=== PATIENT | male | born 1940 ===

== ENCOUNTER 2017-08-06 13:14 | Inpatient (IN) | payer MEDICARE, OTHER ==
[2017-08-06 13:25] VITALS: BMI 27.1
--- NOTE | 2017-08-06 13:44 | RAD ---
PROCEDURE: CHEST RADIOGRAPH, 1 VIEW HISTORY: chest pain COMPARISON: 05/05/2016 FINDINGS: LUNGS: Left basilar consolidation. Possible pneumonia. No right-sided consolidation. PLEURA: Possible left pleural effusion. Left costophrenic angle obscured. No right pleural effusion. No pneumothorax. CARDIOVASCULAR: AICD. Normal heart size. OSSEOUS STRUCTURES: No significant abnormalities. VISUALIZED UPPER ABDOMEN: Normal. OTHER FINDINGS: None. IMPRESSION: Left basilar consolidation. Possible left pleural effusion.
--- NOTE | 2017-08-06 14:01 | C.PDOC ---
History Of Present Illness 77 y/o male hx of HTN, CHF, Diabetes, DVT on eliquis and presents to the ED for chest pain,and SOB. The patient has a SOB that has worsened within the last week . The patient is a poor historian. The patient denies fever and abdominal pain has amild non productive cough. info obtain via tranlator tech at bedside Time Seen by Provider: 08/06/17 13:16 Chief Complaint (Nursing): Chest Pain History Per: Patient History/Exam Limitations: no limitations Onset/Duration Of Symptoms: Days Current Symptoms Are (Timing): Still Present Past Medical History Reviewed: Historical Data, Nursing Documentation, Vital Signs Vital Signs: Last Vital Signs Temp 97.5 F L 08/06/17 13:29 Pulse 98 H 08/06/17 14:07 Resp 20 08/06/17 14:07 BP 146/69 08/06/17 14:07 Pulse Ox 95 08/06/17 14:09 - Medical History PMH: Anxiety, Arthritis, Asthma, Depression, Diabetes, HTN, Hypercholesterolemia , Kidney Stones, Peripheral Edema, Chronic Kidney Disease (REANAL INSUFFICIENCY) Surgical History: Endoscopy, Pacemaker - [facility] Procedures COLONOSCOPY (08/09/13) ESOPHAGOGASTRODUODENOSCOPY [EGD] W/CLOSED BIOPSY (10/04/13) PERCUTAN NEEDLE BIOPSY OF PROSTATE (09/24/14) Family History: States: Unknown Family Hx, CAD, Diabetes - Social History Hx Tobacco Use: No Hx Alcohol Use: No Hx Substance Use: No - Immunization History Hx Tetanus Toxoid Vaccination: No Hx Influenza Vaccination: No Hx Pneumococcal Vaccination: No Review Of Systems Except As Marked, All Systems Reviewed And Found Negative. Constitutional: Negative for: Fever, Chills Respiratory: Positive for: Shortness of Breath. Negative for: Cough, SOB with Excertion Gastrointestinal: Negative for: Nausea, Vomiting, Abdominal Pain Physical Exam - Physical Exam Appears: Non-toxic, No Acute Distress Skin: Warm, Dry Head: Atraumatic, Normacephalic Oral Mucosa: Moist Neck: Supple Chest: Symmetrical Respiratory: Rales (bilateral bases ), No Rhonchi, No Wheezing Gastrointestinal/Abdominal: Soft, No Tenderness, No Guarding, No Rebound Extremity: Capillary Refill (<2sec.) Neurological/Psych: Oriented x3, Normal Speech, Normal Cognition Gait: Steady ED Course And Treatment - Laboratory Results Result Diagrams: 08/06/17 14:28 08/06/17 14:28 ECG Rhythm: Sinus Tachycardia (rate 102 ), Nonspecific Changes (T-waves ) O2 Sat by Pulse Oximetry: 95 (RA) Progress Note: The patient received EKG, bloodwork, IV fluids and Chest X-ray. Medical Decision Making Medical Decision Making: ro chf, pna. pt already on eliquis for previous dvt- labs imagign pending 300: cxr shows possible pna. anbitioics dosed. lasix dosed. discussed with dr glass accepts for admission Disposition - Disposition Disposition: HOSPITALIZED Disposition Time: 15:11 Condition: FAIR Forms: [email or web address] ([place]) - Clinical Impression Clinical Impression: CHF (congestive heart failure), Pneumonia - Scribe Statement The provider has reviewed the documentation as recorded by the Scribe Juanita Baker All medical record entries made by the Scribe were at my direction and personally dictated by me. I have reviewed the chart and agree that the record accurately reflects my personal performance of the history, physical exam, medical decision making, and the department course for this patient. I have also personally directed, reviewed, and agree with the discharge instructions and disposition.athieu Decision To Admit - Pt Status Changed To: Hospital Disposition Of: Inpatient - Admit Certification Admit to Inpatient:: After my assessment, the patient will require hospitalization for at least two midnights. This is because of the severity of symptoms shown, intensity of services needed, and/or the medical risk in this patient being treated as an outpatient. - InPatient: Physician Admission Certification: I certify that this patient requires 2 or more midnights of care for the following reason:: pt with chf, multiple comorbidites needs iv lassix, possible pna needs iv antibiotics - . Bed Request Type: Telemetry Admitting Physician: Cullen Glass Patient Diagnosis: CHF (congestive heart failure), Pneumonia
[2017-08-06 14:39] LABS: BASO # 0.1 K/uL (0.0-0.2); BASO % 0.6 % (0.0-2.0); EOS # 0.3 K/uL (0.0-0.7); EOS % 2.5 % (0.0-4.0); HEMATOCRIT 36.3 % (35.0-51.0); LYMPH # 1.5 K/uL (1.0-4.3); LYMPH % 13.5 % (20.0-40.0); MEAN CELL VOLUME 72.3 fL (80.0-94.0); MEAN CORPUSCULAR HEMOGLOBIN 21.9 pg (27.0-31.0); MEAN CORPUSCULAR HGB CONC 30.3 g/dL (33.0-37.0); MEAN PLATELET VOLUME 8.6 fL (7.2-11.7); MONO # 0.6 K/uL (0.0-0.8); MONO % 4.9 % (0.0-10.0); RED CELL DISTRIBUTION WIDTH 20.1 % (11.5-14.5); WHITE BLOOD COUNT 11.3 K/uL (4.8-10.8)
[2017-08-06 14:45] LABS: INR 1.1
[2017-08-06 14:49] LABS: POTASSIUM 4.3 mmol/L (3.6-5.2)
[2017-08-06 14:51] LABS: BILIRUBIN,TOTAL 0.8 mg/dL (0.2-1.3); TOTAL PROTEIN 7.1 g/dL (6.3-8.3)
[2017-08-06] MEDS ORDERED: Azithromycin 500 MG in Sodium Chloride 0.9% 250 ML IVPB STA (14:52)
[2017-08-06 15:01] LABS: TROPONIN I 0.064 ng/mL (0.00-0.120)
[2017-08-06] MEDS ORDERED: cefTRIAXone IV 1 gm in Dextros 50 ML IVPB ONE (15:12)
[2017-08-06] MEDS ORDERED: Azithromycin 500mg/250ML NS 500 MG/250 ML BAG IVPB ONE (16:11)
--- NOTE | 2017-08-06 16:50 | CP.PCM.HP ---
History of Present Illness - History of Present Illness History of Present Illness: Patient seen and evaluated at approximately 17:30PM with the use of the [id number] #[id number]. Patient states that he is a full code status at this time. Patient had to be explained in detail about what Full code status entails. He states that his emergency contacts are his nephew Moshe Lomax and his Amanda Serrano. Patient was unable to provide a telephone number at this time because he does not remember. Paper Deliverer attempted to reach emergency contacts using the phone numbers listed in the medical record, however unable to reach any person. CC: chest pain and shortness of breath HPI: 77 year old male with PMHx significant for CAD with prior stent placement, HTN, HLD, DM 2, CKD, Anemia, permanent pacemaker, prior DVT and chronic lower extremity edema presents with complaints of chest pain and shortness of breath with ambulation. He states that the chest pain felt like a cramp. It was rated a 7/10. It is unclear whether the chest pain radiated to his arm; however so he did state that he also had left hand pain as well as left sided lower back pain. He states that the shortness of breath has been occurring over the past couple of weeks. He states that he feels his symptoms after walking one block. He uses one pillow to sleep at night. He admits to occasional lower extremity swelling however he has not experienced that " for some time now". In short, patient states that he felt sick and thus he came to the hospital. He also admits to cough with productive white sputum of 12 day duration. He denies sick contacts. He admits to subjective warmth but did not actually use a thermometer. He admits to palpitations as well. He admits to constipation of approx 8 days, but states that this is a chronic issue. He denies paresthesias, headaches, nausea or vomiting, dysuria or recent illness at this time. Of note , the history was challenging to obtain due to the language barrier and because patient paused many times while being asked questions. Patient had to be explained several concepts repetitively before an answer was received. This being said, patient may have an underlying dementia. PMHx: As noted above Surgical Hx: abdominal hernia repair, pacemaker placement, prior cardiac stent placement, Prior Cardiac cath by Dr. Cortés FamilyHx: Mom with DM and vaginal CA, Dad with from [place] at 68. Medications: Refer to the MAR however this medication list will need to be verified as patient does not know the medications that he takes. Patient's family member did not know either. They have been asked to bring in a list of the medications or at the very least find out the name of the pharmacy. The pharmacy name that was currently provided does not actually exist. Previously on Eliquis for a prior Hx of DVT per Medical Records Custodian Dr. Cortés. Social Hx: denies tobacco use; only drank alcohol sparingly when he was very young; denies illicit drug use. Allergies: no known drug allergies PMD: Dr Pickard Present on Admission - Present on Admission Any Indicators Present on Admission: No History of DVT/PE: Yes Review of Systems - Review of Systems Systems not reviewed;Unavailable: Dementia, Language Barrier - Cardiovascular Cardiovascular: Chest Pain - Respiratory Respiratory: Cough. absent: Wheezing, Excessive Mucous Production - Gastrointestinal Gastrointestinal: absent: Nausea, Vomiting - Genitourinary Genitourinary: absent: Dysuria - Integumentary Integumentary: Dry Skin, Swelling - Neurological Neurological: absent: Abnormal Gait, Abnormal Hearing - Psychiatric Psychiatric: absent: Anxiety, Other - Endocrine Endocrine: Palpitations - Hematologic/Lymphatic Hematologic: absent: Easy Bleeding, Easy Bruising Past Patient History - Infectious Disease Hx of Infectious Diseases: None - Past Medical History & Family History Past Medical History?: Yes - Past Social History Smoking Status: Never Smoked Alcohol: None Drugs: Denies Home Situation {Lives}: With Family - CARDIAC Hx Hypercholesterolemia: Yes Hx Hypertension: Yes Hx Pacemaker: Yes Hx Peripheral Edema: Yes - PULMONARY Hx Asthma: Yes - RENAL Hx Chronic Kidney Disease: Yes (REANAL INSUFFICIENCY) Hx Kidney Stones: Yes - ENDOCRINE/METABOLIC Hx Endocrine Disorders: Yes Hx Diabetes Mellitus Type 2: Yes - MUSCULOSKELETAL/RHEUMATOLOGICAL Hx Arthritis: Yes - GENITOURINARY/GYNECOLOGICAL Hx Genitourinary Disorders: Yes Hx Prostate Problems: Yes (ELEVATED PSA) - PSYCHIATRIC Hx Anxiety: Yes Hx Depression: Yes Hx Substance Use: No - SURGICAL HISTORY Hx Surgeries: Yes Other/Comment: pacemaker on - ANESTHESIA Hx Anesthesia: Yes Hx Anesthesia Reactions: No Hx Malignant Hyperthermia: No Meds Allergies/Adverse Reactions: Allergies Allergy/AdvReac Type Severity Reaction Status Date / Time No Known Allergies Allergy Verified 08/06/17 13:20 Physical Exam - Constitutional Appears: Non-toxic, No Acute Distress - Head Exam Head Exam: ATRAUMATIC, NORMAL INSPECTION, NORMOCEPHALIC - Eye Exam Eye Exam: EOMI, Normal appearance, PERRL Pupil Exam: NORMAL ACCOMODATION Additional comments: skin tags appreciated under right eyelid - ENT Exam ENT Exam: Mucous Membranes Moist, Normal Exam - Neck Exam Neck exam: Positive for: Full Rom - Respiratory Exam Respiratory Exam: Rales (Left lower lung lobe), NORMAL BREATHING PATTERN. absent: Wheezes - Cardiovascular Exam Cardiovascular Exam: +S1, +S2 - GI/Abdominal Exam GI & Abdominal Exam: Normal Bowel Sounds, Soft. absent: Rigid, Tenderness Additional comments: central obesity- consequently spleen and liver not palpable - Extremities Exam Extremities exam: Positive for: full ROM, pedal edema (trace bilateral), pedal pulses present. Negative for: joint swelling, tenderness - Back Exam Back exam: FULL ROM - Neurological Exam Neurological exam: Alert, Oriented x3 - Psychiatric Exam Psychiatric exam: Normal Affect, Normal Mood - Skin Skin Exam: Intact, Normal Color, Warm Results - Vital Signs Recent Vital Signs: Last Vital Signs Temp 98 F 08/06/17 16:46 Pulse 106 H 08/06/17 16:46 Resp 22 08/06/17 16:46 BP 160/78 H 08/06/17 16:46 Pulse Ox 98 08/06/17 16:46 - Labs Result Diagrams: 08/06/17 14:28 08/06/17 14:28 Assessment & Plan (1) Chest pain Assessment and Plan: First troponin WNL, though higher end of normal Initial EKG- Sinus tachycardia notes with possible left atrial enlargement; no apparent T segment elevations in contiguous leads F/U ANGEL 2 and 3 F/U EKGs and echo and Medical Records Custodian Dr. Cortés recommendations. F/U Thyroid studies On Metoprolol 25 mg Po daily, Procardia 90 mg po daily, Cozaar 100 mg po daily Status: Acute (2) CHF exacerbation Assessment and Plan: Monitor on telemetry Lasix 20 mg IV Q12 Height of bed at 45 degrees, Strict ins and outs, monitor daily weights F/U Echo Patient to continue blood pressure control as noted above F/U recommendations from Medical Records Custodian, Dr. Cortés Status: Chronic (3) Pneumonia Assessment and Plan: Afebrile, mild leukocytosis on Admission. Hx of productive cough for almost 2 weeks. CXR findings of left basilar consolidation and left pleural effusion Rocephin and Azithromycin given in the ED Will begin Rocephin and Azithromycin Q24 Start Florastor as well F/U Rapid strep, Influenza A and B studies, Urine Legionella, Mycoplasma studies F/U consult to Dr. Mena (Pulm) Status: Acute (4) CAD (coronary artery disease) Assessment and Plan: Hx of cardiac stent in the past F/U Cardio recommendations. Patient will likely benefit from cath Currently on Heparin Drip Status: Acute (5) HTN (hypertension) Assessment and Plan: On Metoprolol, Procardia and Cozaar. (Hold parameters in place) Cont to monitor Status: Chronic (6) CKD (chronic kidney disease) Assessment and Plan: Hx of CKD GFR 45 which appears to be aroudn baseline F/U Dr. Miranda recommendations Status: Acute (7) Diabetes mellitus Assessment and Plan: Accuchecks ISS- High Dose F/U A1c Hold home medications at this time Status: Chronic (8) HLD (hyperlipidemia) Assessment and Plan: F/U lipid panel On Crestor 10 mg Po HS Dietary counseling enforced Status: Chronic (9) Constipation Assessment and Plan: Colace 100 mg PO TID until 18:00PM on 08/07/17. If patient has not had a stool, will add on Dulcolax. Status: Chronic (10) Anemia Assessment and Plan: Likely iron deficiency anemia based on prior admissions Iron Studies. F/U Ferritin, Iron, TIBC, % Saturation Monitor Hgb/Hct Status: Chronic (11) History of DVT (deep vein thrombosis) Assessment and Plan: Patient was previously on Eliquis for a prior history of DVT. At this time, will not initiate. Will rather start heparin drip in anticipation for cath procedure. Status: Acute (12) Prophylactic measure Assessment and Plan: Protonix 40 mg PO daily On Heparin Drip in anticipation for cardiac cath- Will f/u with Dr. Cortés as to when Status: Acute
[2017-08-06] MEDS ORDERED: Heparin25000 units/250ml 1/2NS 25,000 UNITS/250 ML BAG IV PRN (19:43)
[2017-08-06 21:05] LABS: IRON 22 ug/dL (49-181)
[2017-08-06] MEDS: (Novolog) Insulin Aspart, Recombinant 100 u/ml 10 ml vial SC SCH (22:16)
[2017-08-07 07:26] LABS: BASO # 0.1 K/uL (0.0-0.2); BASO % 0.6 % (0.0-2.0); EOS # 0.5 K/uL (0.0-0.7); EOS % 4.4 % (0.0-4.0); HEMATOCRIT 33.9 % (35.0-51.0); LYMPH # 2.6 K/uL (1.0-4.3); LYMPH % 22.3 % (20.0-40.0); MEAN CELL VOLUME 71.6 fL (80.0-94.0); MEAN CORPUSCULAR HEMOGLOBIN 22.4 pg (27.0-31.0); MEAN CORPUSCULAR HGB CONC 31.2 g/dL (33.0-37.0); MEAN PLATELET VOLUME 8.9 fL (7.2-11.7); MONO # 0.6 K/uL (0.0-0.8); MONO % 5.3 % (0.0-10.0); RED CELL DISTRIBUTION WIDTH 19.8 % (11.5-14.5); WHITE BLOOD COUNT 11.5 K/uL (4.8-10.8)
[2017-08-07 08:04] LABS: ALB/GLOB RATIO 0.9 (1.0-2.1); BILIRUBIN,TOTAL 0.6 mg/dL (0.2-1.3); CALCIUM 9.4 mg/dl (8.6-10.4); MAGNESIUM 1.8 mg/dL (1.6-2.3); PHOSPHOROUS 3.8 mg/dL (2.5-4.5); TOTAL PROTEIN 6.6 g/dL (6.3-8.3)
[2017-08-07 08:15] LABS: THYROID STIMULATING HORMONE 1.16 mIU/L (0.46-4.68)
[2017-08-07] MEDS: Heparin25000 units/250ml 1/2NS 25,000 UNITS/250 ML BAG IV PRN ×2 (08:42→18:46)
[2017-08-07] MEDS: (Novolog) Insulin Aspart, Recombinant 100 u/ml 10 ml vial SC SCH ×4 (08:50→21:28)
[2017-08-07] MEDS: Pantoprazole 40 mg EC Tab PO SCH (09:06)
[2017-08-07] MEDS: cefTRIAXone IV 1 gm in Dextros 50 ML IVPB SCH (09:07)
[2017-08-07] MEDS: Saccharomyces Boulardi 250 mg Cap PO SCH ×2 (09:08→17:18)
[2017-08-07] MEDS: Azithromycin 500 MG in Sodium Chloride 0.9% 250 ML IVPB SCH (09:08)
[2017-08-07] MEDS: NIFEdipine 90 mg ER Tab PO SCH (09:17)
[2017-08-07] MEDS ORDERED: NIFEdipine 90 mg ER Tab PO SCH (10:00)
[2017-08-07] MEDS ORDERED: Metoprolol Succinate 25 mg XL Tab PO SCH ×2 (10:00)
--- NOTE | 2017-08-07 10:06 | CP.PCM.PN ---
<Sina White - Last Filed: 08/07/17 12:36> Subjective - Date & Time of Evaluation Date of Evaluation: 08/07/17 Time of Evaluation: 10:05 - Subjective Subjective: PGY1 Note for Dr. Barth HPI: Patient seen and examined at bedside. Slow to respond to questions. States he is still having chest pain and SOB. Denies any belly pain, F,N/V/D. No other complaints at this time. Patient was coughing as I interviewed him. Objective - Vital Signs/Intake and Output Vital Signs (last 24 hours): Temp Pulse Resp BP Pulse Ox 97.5 F L 91 H 18 153/76 H 94 L 08/07/17 07:15 08/07/17 07:15 08/07/17 07:15 08/07/17 09:06 08/07/17 07:15 Intake and Output: 08/07/17 08/07/17 06:59 18:59 Intake Total 250 Output Total 600 Balance -350 - Medications Medications: Current Medications Aspirin (Ecotrin) 81 mg PO DAILY [facility] Last Admin: 08/07/17 09:06 Dose: 81 mg Docusate Sodium (Colace) 100 mg PO TID [facility] Last Admin: 08/07/17 09:07 Dose: 100 mg Furosemide (Lasix) 20 mg IVP Q12 [facility] Last Admin: 08/07/17 09:06 Dose: 20 mg Ceftriaxone Sodium (Rocephin Iv 1 Gm Duplex) 50 mls @ 100 mls/hr IVPB DAILY [facility] Last Admin: 08/07/17 09:07 Dose: 100 mls/hr Azithromycin 500 mg/ Sodium (Chloride) 250 mls @ 167 mls/hr IVPB Q24H [facility] Last Admin: 08/07/17 09:08 Dose: 167 mls/hr Heparin Sodium/Sodium Chloride (Heparin 24639 Units/250ml 1/2 Normal Saline) 25 ,000 units in 250 mls @ 12.383 mls/hr IV .[id number] PRN; Protocol; 14 UNITS/KG/HR PRN Reason: ADJUST RATE PER PROTOCOL Last Admin: 08/07/17 08:42 Dose: 14 units/kg/hr, 12.383 mls/hr Insulin Aspart (Novolog) 0 unit SC ACHS [facility] PRN Reason: Protocol Last Admin: 09/10/17 08:50 Dose: 4 unit Ipratropium Phoenix (Atrovent) 0.5 mg IH RQ6 PRN PRN Reason: Shortness of Breath Losartan Potassium (Cozaar) 100 mg PO DAILY [facility] Last Admin: 08/07/17 09:06 Dose: 100 mg Metoprolol Succinate (Toprol Xl) 25 mg PO DAILY [facility] Last Admin: 08/07/17 09:06 Dose: 25 mg Nifedipine (Procardia Xl) 90 mg PO DAILY [facility] Last Admin: 08/07/17 09:17 Dose: 90 mg Pantoprazole Sodium (Protonix Ec Tab) 40 mg PO DAILY [facility] Last Admin: 08/07/17 09:06 Dose: 40 mg Pneumococcal Polyvalent Vaccine (Pneumovax 23 Vaccine) 0.5 ml IM .ONCE ONE Stop: 08/09/17 10:01 Rosuvastatin Calcium (Crestor) 10 mg PO [facility] Last Admin: 08/06/17 22:01 Dose: 10 mg Saccharomyces Boulardii (Florastor) 250 mg PO BID [facility] Last Admin: 08/07/17 09:08 Dose: 250 mg - Labs Labs: 08/07/17 07:16 08/07/17 07:16 PT 12.5 SECONDS (9.7-12.2) H 08/06/17 14:28 INR 1.1 08/06/17 14:28 APTT 34 SECONDS (21-34) 08/07/17 07:45 - Constitutional Appears: Well, Non-toxic, No Acute Distress - Head Exam Head Exam: ATRAUMATIC, NORMAL INSPECTION, NORMOCEPHALIC - Eye Exam Eye Exam: EOMI Pupil Exam: NORMAL ACCOMODATION - ENT Exam ENT Exam: Mucous Membranes Moist - Respiratory Exam Respiratory Exam: Rales - Cardiovascular Exam Cardiovascular Exam: REGULAR RHYTHM. absent: Bradycardia, Tachycardia - GI/Abdominal Exam GI & Abdominal Exam: Soft, Normal Bowel Sounds. absent: Distended, Tenderness - Extremities Exam Extremities Exam: absent: Joint Swelling, Tenderness - Neurological Exam Neurological Exam: Alert, Awake, Oriented x3 - Psychiatric Exam Psychiatric exam: Normal Affect, Normal Mood - Skin Skin Exam: Dry, Intact, Normal Color, Warm Assessment and Plan - Assessment and Plan (Free Text) Assessment: (1) Chest pain Assessment and Plan: All trops WNL EKG x2 = Sinus tachycardia notes with possible left atrial enlargement; no apparent T segment elevations in contiguous leads Cards (Moo) reccs * Plan on possible stress test TSH: 1.16 T4: 1.53 On Metoprolol 25 mg Po daily, Procardia 90 mg po daily, Cozaar 100 mg po daily Depending on Dr. Cortés reccarlton, may increase Metoprolol or add coreg Status: Acute (2) CHF exacerbation Assessment and Plan: Monitor on telemetry Lasix 20 mg IV QD, decreased due to rising Cr Height of bed at 45 degrees, Strict ins and outs, monitor daily weights F/U Echo Patient to continue blood pressure control as noted above F/U recommendations from [employer], Dr. Cortés Status: Chronic (3) Pneumonia Assessment and Plan: Will begin Rocephin and Azithromycin Q24 Start Florastor as well Rapid strep, Influenza A and B studies, Urine Legionella, Mycoplasma studies = Negative Dr. Mena (Pulm) * Continue IV abx, Culture/sensitivity, CXR, Venous Doppler Status: Acute (4) CAD (coronary artery disease) Assessment and Plan: Hx of cardiac stent in the past F/U Cardio recommendations. Patient will likely benefit from cath Currently on Heparin Drip Status: Acute (5) HTN (hypertension) Assessment and Plan: On Metoprolol, Procardia and Cozaar. (Hold parameters in place) Cont to monitor Status: Chronic (6) CKD (chronic kidney disease) Assessment and Plan: Hx of CKD GFR 45 which appears to be around baseline F/U Dr. Miranda recommendations Status: Acute (7) Diabetes mellitus Assessment and Plan: Accuchecks ISS- High Dose F/U A1c Hold home medications at this time Status: Chronic (8) HLD (hyperlipidemia) Assessment and Plan: F/U lipid panel On Crestor 10 mg Po HS Dietary counseling enforced Status: Chronic (9) Constipation Assessment and Plan: Colace 100 mg PO TID until 18:00PM on 08/07/17. If patient has not had a stool, will add on Dulcolax. Status: Chronic (10) Anemia Assessment and Plan: Likely iron deficiency anemia based on prior admissions Iron Studies. Ferritin 27.4, Iron 22, TIBC 322, % Saturation 7 Monitor Hgb/Hct Status: Chronic (11) History of DVT (deep vein thrombosis) Assessment and Plan: Patient was previously on Eliquis for a prior history of DVT. At this time, will not initiate. Will rather start heparin drip in anticipation for cath procedure. Status: Acute (12) Prophylactic measure Assessment and Plan: Protonix 40 mg PO daily On Heparin Drip in anticipation for cardiac cath- Will f/u with Dr. Cortés as to when Status: Acute <Cullen Barth - Last Filed: 08/07/17 17:17> Objective - Vital Signs/Intake and Output Vital Signs (last 24 hours): Temp Pulse Resp BP Pulse Ox 97.5 F L 91 H 18 153/76 H 94 L 08/07/17 07:15 08/07/17 08:05 08/07/17 07:15 08/07/17 09:06 08/07/17 07:15 Intake and Output: 08/07/17 08/07/17 06:59 18:59 Intake Total 250 Output Total 600 Balance -350 - Medications Medications: Current Medications Acetylcysteine (Acetylcysteine 20%) 3 ml PO Q12H [facility] Last Admin: 08/07/17 16:03 Dose: 3 ml Aspirin (Ecotrin) 81 mg PO DAILY [facility] Last Admin: 08/07/17 09:06 Dose: 81 mg Docusate Sodium (Colace) 100 mg PO TID [facility] Last Admin: 08/07/17 13:47 Dose: 100 mg Ferrous Sulfate (Feosol) 325 mg PO BID [facility] Furosemide (Lasix) 20 mg IVP DAILY [facility] Ceftriaxone Sodium (Rocephin Iv 1 Gm Duplex) 50 mls @ 100 mls/hr IVPB DAILY [facility] Last Admin: 08/07/17 09:07 Dose: 100 mls/hr Azithromycin 500 mg/ Sodium (Chloride) 250 mls @ 167 mls/hr IVPB Q24H [facility] Last Admin: 08/07/17 09:08 Dose: 167 mls/hr Heparin Sodium/Sodium Chloride (Heparin 60082 Units/250ml 1/2 Normal Saline) 25 ,000 units in 250 mls @ 12.383 mls/hr IV .[id number] PRN; Protocol; 14 UNITS/KG/HR PRN Reason: ADJUST RATE PER PROTOCOL Last Admin: 08/07/17 08:42 Dose: 14 units/kg/hr, 12.383 mls/hr Insulin Aspart (Novolog) 0 unit SC ACHS [facility] PRN Reason: Protocol Last Admin: 08/07/17 12:50 Dose: 4 unit Ipratropium Phoenix (Atrovent) 0.5 mg RQ6 PRN PRN Reason: Shortness of Breath Last Admin: 08/07/17 14:14 Dose: 0.5 mg Losartan Potassium (Cozaar) 100 mg PO DAILY [facility] Last Admin: 08/07/17 09:06 Dose: 100 mg Metoprolol Succinate (Toprol Xl) 50 mg PO DAILY [facility] Nifedipine (Procardia Xl) 90 mg PO DAILY [facility] Last Admin: 08/07/17 09:17 Dose: 90 mg Pantoprazole Sodium (Protonix Ec Tab) 40 mg PO DAILY [facility] Last Admin: 08/07/17 09:06 Dose: 40 mg Pneumococcal Polyvalent Vaccine (Pneumovax 23 Vaccine) 0.5 ml IM .ONCE ONE Stop: 08/09/17 10:01 Rosuvastatin Calcium (Crestor) 10 mg PO HS [facility] Last Admin: 08/06/17 22:01 Dose: 10 mg Saccharomyces Boulardii (Florastor) 250 mg PO BID [facility] Last Admin: 08/07/17 09:08 Dose: 250 mg - Labs Labs: 08/07/17 07:16 08/07/17 07:16 PT 12.5 SECONDS (9.7-12.2) H 08/06/17 14:28 INR 1.1 08/06/17 14:28 APTT 61 SECONDS (21-34) H D 08/07/17 14:56 Attending/Attestation - Attestation I have personally seen and examined this patient.: Yes I have fully participated in the care of the patient.: Yes I have reviewed all pertinent clinical information, including history, physical exam and plan: Yes Notes (Text): 08/07/17 17:12 Patient was seen and examined shortly after resident. Exam, Assessment and Plan were thoroughly gone over with the resident. Please note that on Exam: Rales were heard on the Left Lower Lobe Please note that considering the elevated blood pressure with heart rate in the 90s, Metoprolol Succinate was increased to 50 mg PO 1x/day His Lasix was also reduced to 20 mg IV 1x/day starting today 08/07/17 considering the increase in Cr. I spoke with [employer] Dr. Cortés who stated that patient will be taken for Cardiac Cath on Tuesday08/09/17. I have added Acetylsyteine 6 ml PO Q12H starting today 08/07/17 and this will need to be continued through 08/09/17 to help with contrast associated nephrotoxicity in anticipation of planned Cardiac Cath on 08/09/17. Cullen Barth D.O.
--- NOTE | 2017-08-07 11:09 | CP.PCM.CON ---
History of Present Illness - History of Present Illness History of Present Illness: reason for consultation: left lung infiltrate 77-year-old male with history of coronary artery disease status post stent placement, diabetes, hypertension, hyperlipidemia, chronic kidney disease, prior history of DVT presented to emergency room complaining of shortness of breath and chest pain. Chest x-ray done in the emergency room showed retrocardiac infiltrate. Surgical Hx: abdominal hernia repair, pacemaker placement, prior cardiac stent placement, Prior Cardiac cath by Dr. Cortés FamilyHx: Mom with DM and vaginal CA, Dad with from [place] at 68. Medications: Refer to the MAR however this medication list will need to be verified as patient does not know the medications that he takes. Patient's family member did not know either. They have been asked to bring in a list of the medications or at the very least find out the name of the pharmacy. The pharmacy name that was currently provided does not actually exist. Previously on Eliquis for a prior Hx of DVT per [facility] Supervisor Dr. Cortés. Social Hx: denies tobacco use; only drank alcohol sparingly when he was very young; denies illicit drug use. Allergies: no known drug allergies Review of Systems - Review of Systems All systems: reviewed and no additional remarkable complaints except (shortness of breath and cough/chest pain) Past Patient History - Infectious Disease Hx of Infectious Diseases: None - Past Medical History & Family History Past Medical History?: Yes - Past Social History Smoking Status: Never Smoked Alcohol: None Drugs: Denies Home Situation {Lives}: With Family - CARDIAC Hx Hypercholesterolemia: Yes Hx Hypertension: Yes Hx Pacemaker: Yes Hx Peripheral Edema: Yes - PULMONARY Hx Asthma: Yes - RENAL Hx Chronic Kidney Disease: Yes (REANAL INSUFFICIENCY) Hx Kidney Stones: Yes - ENDOCRINE/METABOLIC Hx Endocrine Disorders: Yes Hx Diabetes Mellitus Type 2: Yes - MUSCULOSKELETAL/RHEUMATOLOGICAL Hx Arthritis: Yes - GENITOURINARY/GYNECOLOGICAL Hx Genitourinary Disorders: Yes Hx Prostate Problems: Yes (ELEVATED PSA) - PSYCHIATRIC Hx Anxiety: Yes Hx Depression: Yes Hx Substance Use: No - SURGICAL HISTORY Hx Surgeries: Yes Other/Comment: pacemaker on - ANESTHESIA Hx Anesthesia: Yes Hx Anesthesia Reactions: No Hx Malignant Hyperthermia: No Meds Allergies/Adverse Reactions: Allergies Allergy/AdvReac Type Severity Reaction Status Date / Time No Known Allergies Allergy Verified 08/06/17 13:20 - Medications Medications: Current Medications Aspirin (Ecotrin) 81 mg PO DAILY [facility] Last Admin: 08/07/17 09:06 Dose: 81 mg Docusate Sodium (Colace) 100 mg PO TID [facility] Last Admin: 08/07/17 09:07 Dose: 100 mg Furosemide (Lasix) 20 mg IVP DAILY [facility] Ceftriaxone Sodium (Rocephin Iv 1 Gm Duplex) 50 mls @ 100 mls/hr IVPB DAILY [facility] Last Admin: 08/07/17 09:07 Dose: 100 mls/hr Azithromycin 500 mg/ Sodium (Chloride) 250 mls @ 167 mls/hr IVPB Q24H [facility] Last Admin: 08/07/17 09:08 Dose: 167 mls/hr Heparin Sodium/Sodium Chloride (Heparin 50149 Units/250ml 1/2 Normal Saline) 25 ,000 units in 250 mls @ 12.383 mls/hr IV .[id number] PRN; Protocol; 14 UNITS/KG/HR PRN Reason: ADJUST RATE PER PROTOCOL Last Admin: 08/07/17 08:42 Dose: 14 units/kg/hr, 12.383 mls/hr Insulin Aspart (Novolog) 0 unit SC ACHS [facility] PRN Reason: Protocol Last Admin: 08/07/17 08:50 Dose: 4 unit Ipratropium [place] (Atrovent) 0.5 mg IH RQ6 PRN PRN Reason: Shortness of Breath Losartan Potassium (Cozaar) 100 mg PO DAILY [facility] Last Admin: 08/07/17 09:06 Dose: 100 mg Metoprolol Succinate (Toprol Xl) 25 mg PO DAILY [facility] Last Admin: 08/07/17 09:06 Dose: 25 mg Nifedipine (Procardia Xl) 90 mg PO DAILY [facility] Last Admin: 08/07/17 09:17 Dose: 90 mg Pantoprazole Sodium (Protonix Ec Tab) 40 mg PO DAILY [facility] Last Admin: 08/07/17 09:06 Dose: 40 mg Pneumococcal Polyvalent Vaccine (Pneumovax 23 Vaccine) 0.5 ml IM .ONCE ONE Stop: 08/09/17 10:01 Rosuvastatin Calcium (Crestor) 10 mg PO HS [facility] Last Admin: 08/06/17 22:01 Dose: 10 mg Saccharomyces Boulardii (Florastor) 250 mg PO BID [facility] Last Admin: 08/07/17 09:08 Dose: 250 mg Physical Exam - Constitutional Appears: No Acute Distress - Head Exam Head Exam: ATRAUMATIC, NORMOCEPHALIC - Eye Exam Eye Exam: Normal appearance - ENT Exam ENT Exam: Mucous Membranes Moist - Respiratory Exam Respiratory Exam: Rales - Cardiovascular Exam Cardiovascular Exam: REGULAR RHYTHM - GI/Abdominal Exam GI & Abdominal Exam: Normal Bowel Sounds, Soft - Extremities Exam Extremities exam: Positive for: normal inspection - Neurological Exam Neurological exam: Alert, Oriented x3 Results - Vital Signs Recent Vital Signs: Last Vital Signs Temp 97.5 F L 08/07/17 07:15 Pulse 91 H 08/07/17 07:15 Resp 18 08/07/17 07:15 BP 153/76 H 08/07/17 09:06 Pulse Ox 94 L 08/07/17 07:15 - Labs Result Diagrams: 08/07/17 07:16 08/07/17 07:16 Labs: Laboratory Results - last 24 hr 08/06/17 08/06/17 08/06/17 20:46 20:46 20:46 WBC RBC Hgb Hct MCV MCH MCHC RDW Plt Count MPV Neut % (Auto) Lymph % (Auto) [place] % (Auto) Eos % (Auto) Baso % (Auto) Neut # Lymph # [place] # Eos # Baso # APTT Sodium Potassium Chloride Carbon Dioxide Anion Gap BUN Creatinine Est GFR ( Amer) Est GFR (Non-Af Amer) POC Glucose (mg/dL) Random Glucose Calcium Phosphorus Magnesium Iron 22 L TIBC 322 % Saturation 7 L Ferritin 27.4 Total Bilirubin AST ALT Alkaline Phosphatase Total Creatine Kinase 29 L CK-MB (Mass) 0.90 Troponin I, Quant 0.0730 Total Protein Albumin Globulin Albumin/Globulin Ratio Free T4 TSH 3rd Generation Influenza Typ A,B (EIA) Ur L.pneumophila Ag Mycoplasma pneumon IgM Grp A Beta Strep Ag 08/06/17 08/06/17 08/06/17 20:53 20:53 21:16 WBC RBC Hgb Hct MCV MCH MCHC RDW Plt Count MPV Neut % (Auto) Lymph % (Auto) [place] % (Auto) Eos % (Auto) Baso % (Auto) Neut # Lymph # [place] # Eos # Baso # APTT Sodium Potassium Chloride Carbon Dioxide Anion Gap BUN Creatinine Est GFR ( Amer) Est GFR (Non-Af Amer) POC Glucose (mg/dL) 274 H Random Glucose Calcium Phosphorus Magnesium Iron TIBC % Saturation Ferritin Total Bilirubin AST ALT Alkaline Phosphatase Total Creatine Kinase CK-MB (Mass) Troponin I, Quant Total Protein Albumin Globulin Albumin/Globulin Ratio Free T4 TSH 3rd Generation Influenza Typ A,B (EIA) Negative for flu a/b Ur L.pneumophila Ag Cancelled Mycoplasma pneumon IgM Negative Grp A Beta Strep Ag Negative 08/07/17 08/07/17 08/07/17 04:00 04:00 07:12 WBC RBC Hgb Hct MCV MCH MCHC RDW Plt Count MPV Neut % (Auto) Lymph % (Auto) [place] % (Auto) Eos % (Auto) Baso % (Auto) Neut # Lymph # [place] # Eos # Baso # APTT 37 H D Sodium Potassium Chloride Carbon Dioxide Anion Gap BUN Creatinine Est GFR ( Amer) Est GFR (Non-Af Amer) POC Glucose (mg/dL) 239 H Random Glucose Calcium Phosphorus Magnesium Iron TIBC % Saturation Ferritin Total Bilirubin AST ALT Alkaline Phosphatase Total Creatine Kinase 26 L CK-MB (Mass) 0.75 Troponin I, Quant 0.0700 Total Protein Albumin Globulin Albumin/Globulin Ratio Free T4 TSH 3rd Generation Influenza Typ A,B (EIA) Ur L.pneumophila Ag Mycoplasma pneumon IgM Grp A Beta Strep Ag 08/07/17 08/07/17 08/07/17 07:16 07:16 07:16 WBC 11.5 H RBC 4.73 Hgb 10.6 L Hct 33.9 L MCV 71.6 L MCH 22.4 L MCHC 31.2 L RDW 19.8 H Plt Count 379 MPV 8.9 Neut % (Auto) 67.4 Lymph % (Auto) 22.3 [place] % (Auto) 5.3 Eos % (Auto) 4.4 H Baso % (Auto) 0.6 Neut # 7.8 H Lymph # 2.6 [place] # 0.6 Eos # 0.5 Baso # 0.1 APTT Sodium 144 Potassium 4.0 Chloride 104 Carbon Dioxide 26 Anion Gap 18 BUN 26 H Creatinine 1.6 H Est GFR ( Amer) 51 Est GFR (Non-Af Amer) 42 POC Glucose (mg/dL) Random Glucose 249 H Calcium 9.4 Phosphorus 3.8 Magnesium 1.8 Iron TIBC % Saturation Ferritin Total Bilirubin 0.6 AST 22 ALT 29 Alkaline Phosphatase 116 Total Creatine Kinase CK-MB (Mass) Troponin I, Quant Total Protein 6.6 Albumin 3.2 L Globulin 3.4 Albumin/Globulin Ratio 0.9 L Free T4 1.53 TSH 3rd Generation 1.16 Influenza Typ A,B (EIA) Ur L.pneumophila Ag Mycoplasma pneumon IgM Grp A Beta Strep Ag 08/07/17 07:45 WBC RBC Hgb Hct MCV MCH MCHC RDW Plt Count MPV Neut % (Auto) Lymph % (Auto) [place] % (Auto) Eos % (Auto) Baso % (Auto) Neut # Lymph # [place] # Eos # Baso # APTT 34 Sodium Potassium Chloride Carbon Dioxide Anion Gap BUN Creatinine Est GFR ( Amer) Est GFR (Non-Af Amer) POC Glucose (mg/dL) Random Glucose Calcium Phosphorus Magnesium Iron TIBC % Saturation Ferritin Total Bilirubin AST ALT Alkaline Phosphatase Total Creatine Kinase CK-MB (Mass) Troponin I, Quant Total Protein Albumin Globulin Albumin/Globulin Ratio Free T4 TSH 3rd Generation Influenza Typ A,B (EIA) Ur L.pneumophila Ag Mycoplasma pneumon IgM Grp A Beta Strep Ag Assessment & Plan (1) Pneumonia Status: Acute Comment: continue IV antibiotics and followup culture and sensitivity. Followup chest x-ray. Venous Doppler of lower extremity (2) History of DVT (deep vein thrombosis) Status: Acute (3) CKD (chronic kidney disease) Status: Acute
[2017-08-07] MEDS: Ipratropium 0.02% Inhal Soln (0.5 mg/2.5 ml) UD IH PRN ×2 (14:14→19:54)
[2017-08-07] MEDS: Acetylcysteine 20% Inhal Soln (4ml) PO SCH (16:03)
--- NOTE | 2017-08-07 16:28 | CP.PCM.CON ---
History of Present Illness - History of Present Illness History of Present Illness: 77-year-old male with history of coronary artery disease status post stent placement, diabetes, hypertension, hyperlipidemia, chronic kidney disease, prior history of DVT presented to emergency room complaining of shortness of breath and chest pain. Chest x-ray done in the emergency room showed retrocardiac infiltrate. Pt being ruled out for MS. Also, receiving AB. Presently on heparin. For possible cath. No urinary complaints. On Cozaar. No family history of renal disease. Review of Systems - Constitutional Constitutional: absent: Fatigue, Fever - EENT Eyes: absent: Blurred Vision Nose/Mouth/Throat: absent: Nasal Congestion, Nasal Obstruction - Cardiovascular Cardiovascular: Chest Pain. absent: Edema - Genitourinary Genitourinary: absent: Change in Urinary Stream, Difficulty Urinating - Musculoskeletal Musculoskeletal: absent: Arthralgias, Back Pain - Integumentary Integumentary: absent: Dry Skin, Rash - Neurological Neurological: absent: Abnormal Gait, Behavioral Changes Past Patient History - Infectious Disease Hx of Infectious Diseases: None - Past Medical History & Family History Past Medical History?: Yes - Past Social History Smoking Status: Never Smoked Alcohol: None Drugs: Denies Home Situation {Lives}: With Family - CARDIAC Hx Hypercholesterolemia: Yes Hx Hypertension: Yes Hx Pacemaker: Yes Hx Peripheral Edema: Yes - PULMONARY Hx Asthma: Yes - RENAL Hx Chronic Kidney Disease: Yes (REANAL INSUFFICIENCY) Hx Kidney Stones: Yes - ENDOCRINE/METABOLIC Hx Endocrine Disorders: Yes Hx Diabetes Mellitus Type 2: Yes - MUSCULOSKELETAL/RHEUMATOLOGICAL Hx Arthritis: Yes - GENITOURINARY/GYNECOLOGICAL Hx Genitourinary Disorders: Yes Hx Prostate Problems: Yes (ELEVATED PSA) - PSYCHIATRIC Hx Anxiety: Yes Hx Depression: Yes Hx Substance Use: No - SURGICAL HISTORY Hx Surgeries: Yes Other/Comment: pacemaker on - ANESTHESIA Hx Anesthesia: Yes Hx Anesthesia Reactions: No Hx Malignant Hyperthermia: No Meds Allergies/Adverse Reactions: Allergies Allergy/AdvReac Type Severity Reaction Status Date / Time No Known Allergies Allergy Verified 08/06/17 13:20 - Medications Medications: Current Medications Acetylcysteine (Acetylcysteine 20%) 3 ml PO Q12H [facility] Last Admin: 08/07/17 16:03 Dose: 3 ml Aspirin (Ecotrin) 81 mg PO DAILY [facility] [place] Last Admin: 08/07/17 09:06 Dose: 81 mg Docusate Sodium (Colace) 100 mg PO TID [facility] [place] Last Admin: 08/07/17 13:47 Dose: 100 mg Ferrous Sulfate (Feosol) 325 mg PO BID [facility] [place] Furosemide (Lasix) 20 mg IVP DAILY [facility] [place] Ceftriaxone Sodium (Rocephin Iv 1 Gm Duplex) 50 mls @ 100 mls/hr IVPB DAILY [facility] [place] Last Admin: 08/07/17 09:07 Dose: 100 mls/hr Azithromycin 500 mg/ Sodium (Chloride) 250 mls @ 167 mls/hr IVPB Q24H [facility] [place] Last Admin: 08/07/17 09:08 Dose: 167 mls/hr Heparin Sodium/Sodium Chloride (Heparin 46507 Units/250ml 1/2 Normal Saline) 25 ,000 units in 250 mls @ 12.383 mls/hr IV .[id number] PRN; Protocol; 14 UNITS/KG/HR PRN Reason: ADJUST RATE PER PROTOCOL Last Admin: 08/07/17 08:42 Dose: 14 units/kg/hr, 12.383 mls/hr Insulin Aspart (Novolog) 0 unit SC ACHS [facility] [place] PRN Reason: Protocol Last Admin: 08/07/17 12:50 Dose: 4 unit Ipratropium [place] (Atrovent) 0.5 mg IH RQ6 PRN PRN Reason: Shortness of Breath Last Admin: 08/07/17 14:14 Dose: 0.5 mg Losartan Potassium (Cozaar) 100 mg PO DAILY [facility] [place] Last Admin: 08/07/17 09:06 Dose: 100 mg Metoprolol Succinate (Toprol Xl) 50 mg PO DAILY [facility] [place] Nifedipine (Procardia Xl) 90 mg PO DAILY [facility] [place] Last Admin: 08/07/17 09:17 Dose: 90 mg Pantoprazole Sodium (Protonix Ec Tab) 40 mg PO DAILY [facility] [place] Last Admin: 08/07/17 09:06 Dose: 40 mg Pneumococcal Polyvalent Vaccine (Pneumovax 23 Vaccine) 0.5 ml IM .ONCE ONE Stop: 08/09/17 10:01 Rosuvastatin Calcium (Crestor) 10 mg PO [facility] Last Admin: 08/06/17 22:01 Dose: 10 mg Saccharomyces Boulardii (Florastor) 250 mg PO BID [facility] [place] Last Admin: 08/07/17 09:08 Dose: 250 mg Physical Exam - Constitutional Appears: No Acute Distress - Head Exam Head Exam: ATRAUMATIC - Eye Exam Eye Exam: EOMI - ENT Exam ENT Exam: Mucous Membranes Moist - Neck Exam Neck exam: Positive for: Full Rom. Negative for: Lymphadenopathy - Respiratory Exam Respiratory Exam: NORMAL BREATHING PATTERN. absent: Accessory Muscle Use - Cardiovascular Exam Cardiovascular Exam: REGULAR RHYTHM. absent: Rubs - GI/Abdominal Exam GI & Abdominal Exam: Distended. absent: Guarding - Extremities Exam Extremities exam: Negative for: pedal edema - Neurological Exam Neurological exam: Alert, Oriented x3 Results - Vital Signs Recent Vital Signs: Last Vital Signs Temp 97.5 F L 08/07/17 07:15 Pulse 91 H 08/07/17 08:05 Resp 18 08/07/17 07:15 BP 153/76 H 08/07/17 09:06 Pulse Ox 94 L 08/07/17 07:15 - Labs Result Diagrams: 08/07/17 07:16 08/07/17 07:16 Labs: Laboratory Results - last 24 hr 08/06/17 08/06/17 08/06/17 20:46 20:46 20:46 WBC RBC Hgb Hct MCV MCH MCHC RDW Plt Count MPV Neut % (Auto) Lymph % (Auto) [place] % (Auto) Eos % (Auto) Baso % (Auto) Neut # Lymph # [place] # Eos # Baso # APTT Sodium Potassium Chloride Carbon Dioxide Anion Gap BUN Creatinine Est GFR ( Amer) Est GFR (Non-Af Amer) POC Glucose (mg/dL) Random Glucose Calcium Phosphorus Magnesium Iron 22 L TIBC 322 % Saturation 7 L Ferritin 27.4 Total Bilirubin AST ALT Alkaline Phosphatase Total Creatine Kinase 29 L CK-MB (Mass) 0.90 Troponin I, Quant 0.0730 Total Protein Albumin Globulin Albumin/Globulin Ratio Free T4 TSH 3rd Generation Influenza Typ A,B (EIA) Ur L.pneumophila Ag Mycoplasma pneumon IgM Grp A Beta Strep Ag 08/06/17 08/06/17 08/06/17 20:53 20:53 21:16 WBC RBC Hgb Hct MCV MCH MCHC RDW Plt Count MPV Neut % (Auto) Lymph % (Auto) [place] % (Auto) Eos % (Auto) Baso % (Auto) Neut # Lymph # [place] # Eos # Baso # APTT Sodium Potassium Chloride Carbon Dioxide Anion Gap BUN Creatinine Est GFR ( Amer) Est GFR (Non-Af Amer) POC Glucose (mg/dL) 274 H Random Glucose Calcium Phosphorus Magnesium Iron TIBC % Saturation Ferritin Total Bilirubin AST ALT Alkaline Phosphatase Total Creatine Kinase CK-MB (Mass) Troponin I, Quant Total Protein Albumin Globulin Albumin/Globulin Ratio Free T4 TSH 3rd Generation Influenza Typ A,B (EIA) Negative for flu a/b Ur L.pneumophila Ag Cancelled Mycoplasma pneumon IgM Negative Grp A Beta Strep Ag Negative 08/07/17 08/07/17 08/07/17 04:00 04:00 07:12 WBC RBC Hgb Hct MCV MCH MCHC RDW Plt Count MPV Neut % (Auto) Lymph % (Auto) [place] % (Auto) Eos % (Auto) Baso % (Auto) Neut # Lymph # [place] # Eos # Baso # APTT 37 H D Sodium Potassium Chloride Carbon Dioxide Anion Gap BUN Creatinine Est GFR ( Amer) Est GFR (Non-Af Amer) POC Glucose (mg/dL) 239 H Random Glucose Calcium Phosphorus Magnesium Iron TIBC % Saturation Ferritin Total Bilirubin AST ALT Alkaline Phosphatase Total Creatine Kinase 26 L CK-MB (Mass) 0.75 Troponin I, Quant 0.0700 Total Protein Albumin Globulin Albumin/Globulin Ratio Free T4 TSH 3rd Generation Influenza Typ A,B (EIA) Ur L.pneumophila Ag Mycoplasma pneumon IgM Grp A Beta Strep Ag 08/07/17 08/07/17 08/07/17 07:16 07:16 07:16 WBC 11.5 H RBC 4.73 Hgb 10.6 L Hct 33.9 L MCV 71.6 L MCH 22.4 L MCHC 31.2 L RDW 19.8 H Plt Count 379 MPV 8.9 Neut % (Auto) 67.4 Lymph % (Auto) 22.3 [place] % (Auto) 5.3 Eos % (Auto) 4.4 H Baso % (Auto) 0.6 Neut # 7.8 H Lymph # 2.6 [place] # 0.6 Eos # 0.5 Baso # 0.1 APTT Sodium 144 Potassium 4.0 Chloride 104 Carbon Dioxide 26 Anion Gap 18 BUN 26 H Creatinine 1.6 H Est GFR ( Amer) 51 Est GFR (Non-Af Amer) 42 POC Glucose (mg/dL) Random Glucose 249 H Calcium 9.4 Phosphorus 3.8 Magnesium 1.8 Iron TIBC % Saturation Ferritin Total Bilirubin 0.6 AST 22 ALT 29 Alkaline Phosphatase 116 Total Creatine Kinase CK-MB (Mass) Troponin I, Quant Total Protein 6.6 Albumin 3.2 L Globulin 3.4 Albumin/Globulin Ratio 0.9 L Free T4 1.53 TSH 3rd Generation 1.16 Influenza Typ A,B (EIA) Ur L.pneumophila Ag Mycoplasma pneumon IgM Grp A Beta Strep Ag 08/07/17 08/07/17 08/07/17 07:45 11:25 14:56 WBC RBC Hgb Hct MCV MCH MCHC RDW Plt Count MPV Neut % (Auto) Lymph % (Auto) [place] % (Auto) Eos % (Auto) Baso % (Auto) Neut # Lymph # [place] # Eos # Baso # APTT 34 61 H D Sodium Potassium Chloride Carbon Dioxide Anion Gap BUN Creatinine Est GFR ( Amer) Est GFR (Non-Af Amer) POC Glucose (mg/dL) 234 H Random Glucose Calcium Phosphorus Magnesium Iron TIBC % Saturation Ferritin Total Bilirubin AST ALT Alkaline Phosphatase Total Creatine Kinase CK-MB (Mass) Troponin I, Quant Total Protein Albumin Globulin Albumin/Globulin Ratio Free T4 TSH 3rd Generation Influenza Typ A,B (EIA) Ur L.pneumophila Ag Mycoplasma pneumon IgM Grp A Beta Strep Ag Assessment & Plan - Assessment and Plan (Free Text) Assessment: ckd cad atypical chest pain for possible cath if creatinine continues to rise, d/c arb check u/a trend labs acetylcysteine for cath, if to be done
[2017-08-07] MEDS ORDERED: Bisacodyl 5mg EC Tab PO ONE (19:28)
--- NOTE | 2017-08-07 20:08 | CP.PCM.CON ---
History of Present Illness - History of Present Illness History of Present Illness: HPI: 77 year old male with PMHx significant for CAD with prior stent placement, HTN, HLD, DM 2, CKD, Anemia, permanent pacemaker, prior DVT and chronic lower extremity edema presents with complaints of chest pain and shortness of breath with ambulation. He states that the chest pain felt like a cramp. It was rated a 7/10. It is unclear whether the chest pain radiated to his arm Review of Systems - Review of Systems Systems not reviewed;Unavailable: Dementia, Language Barrier - Cardiovascular Cardiovascular: Chest Pain - Respiratory Respiratory: Cough. absent: Wheezing, Excessive Mucous Production - Gastrointestinal Gastrointestinal: absent: Nausea, Vomiting - Genitourinary Genitourinary: absent: Dysuria - Integumentary Integumentary: Dry Skin, Swelling - Neurological Neurological: absent: Abnormal Gait, Abnormal Hearing - Psychiatric Psychiatric: absent: Anxiety, Other - Endocrine Endocrine: Palpitations - Hematologic/Lymphatic Hematologic: absent: Easy Bleeding, Easy Bruising Physical Exam - Constitutional Appears: Non-toxic, No Acute Distress - Head Exam Head Exam: ATRAUMATIC, NORMAL INSPECTION, NORMOCEPHALIC - Eye Exam Eye Exam: EOMI, Normal appearance, PERRL Pupil Exam: NORMAL ACCOMODATION Additional comments: skin tags appreciated under right eyelid - ENT Exam ENT Exam: Mucous Membranes Moist, Normal Exam - Neck Exam Neck exam: Positive for: Full Rom - Respiratory Exam Respiratory Exam: Rales (Left lower lung lobe), NORMAL BREATHING PATTERN. absent: Wheezes - Cardiovascular Exam Cardiovascular Exam: +S1, +S2 - GI/Abdominal Exam GI & Abdominal Exam: Normal Bowel Sounds, Soft. absent: Rigid, Tenderness Additional comments: central obesity- consequently spleen and liver not palpable - Extremities Exam Extremities exam: Positive for: full ROM, pedal edema (trace bilateral), pedal pulses present. Negative for: joint swelling, tenderness - Back Exam Back exam: FULL ROM - Neurological Exam Neurological exam: Alert, Oriented x3 - Psychiatric Exam Psychiatric exam: Normal Affect, Normal Mood - Skin Skin Exam: Intact, Normal Color, Warm Past Patient History - Infectious Disease Hx of Infectious Diseases: None - Past Medical History & Family History Past Medical History?: Yes - Past Social History Smoking Status: Never Smoked Alcohol: None Drugs: Denies Home Situation {Lives}: With Family - CARDIAC Hx Hypercholesterolemia: Yes Hx Hypertension: Yes Hx Pacemaker: Yes Hx Peripheral Edema: Yes - PULMONARY Hx Asthma: Yes - RENAL Hx Chronic Kidney Disease: Yes (REANAL INSUFFICIENCY) Hx Kidney Stones: Yes - ENDOCRINE/METABOLIC Hx Endocrine Disorders: Yes Hx Diabetes Mellitus Type 2: Yes - MUSCULOSKELETAL/RHEUMATOLOGICAL Hx Arthritis: Yes - GENITOURINARY/GYNECOLOGICAL Hx Genitourinary Disorders: Yes Hx Prostate Problems: Yes (ELEVATED PSA) - PSYCHIATRIC Hx Anxiety: Yes Hx Depression: Yes Hx Substance Use: No - SURGICAL HISTORY Hx Surgeries: Yes Other/Comment: pacemaker on - ANESTHESIA Hx Anesthesia: Yes Hx Anesthesia Reactions: No Hx Malignant Hyperthermia: No Meds Allergies/Adverse Reactions: Allergies Allergy/AdvReac Type Severity Reaction Status Date / Time No Known Allergies Allergy Verified 08/06/17 13:20 - Medications Medications: Current Medications Acetylcysteine (Acetylcysteine 20%) 3 ml PO Q12H [facility] Last Admin: 08/07/17 16:03 Dose: 3 ml Aspirin (Ecotrin) 81 mg PO DAILY [facility] Last Admin: 08/07/17 09:06 Dose: 81 mg Docusate Sodium (Colace) 100 mg PO TID [facility] Last Admin: 08/07/17 17:18 Dose: 100 mg Ferrous Sulfate (Feosol) 325 mg PO BID [facility] Last Admin: 08/07/17 17:18 Dose: 325 mg Furosemide (Lasix) 20 mg IVP DAILY [facility] Ceftriaxone Sodium (Rocephin Iv 1 Gm Duplex) 50 mls @ 100 mls/hr IVPB DAILY [facility] Last Admin: 08/07/17 09:07 Dose: 100 mls/hr Azithromycin 500 mg/ Sodium (Chloride) 250 mls @ 167 mls/hr IVPB Q24H [facility] Last Admin: 08/07/17 09:08 Dose: 167 mls/hr Heparin Sodium/Sodium Chloride (Heparin 63025 Units/250ml 1/2 Normal Saline) 25 ,000 units in 250 mls @ 12.383 mls/hr IV .[id number] PRN; Protocol; 14 UNITS/KG/HR PRN Reason: ADJUST RATE PER PROTOCOL Last Admin: 08/07/17 18:46 Dose: 14 units/kg/hr, 12.383 mls/hr Insulin Aspart (Novolog) 0 unit SC ACHS [facility] PRN Reason: Protocol Last Admin: 08/07/17 17:19 Dose: 2 unit Ipratropium [place] (Atrovent) 0.5 mg IH RQ6 PRN PRN Reason: Shortness of Breath Last Admin: 08/07/17 19:54 Dose: 0.5 mg Losartan Potassium (Cozaar) 100 mg PO DAILY [facility] Last Admin: 08/07/17 09:06 Dose: 100 mg Metoprolol Succinate (Toprol Xl) 50 mg PO DAILY [facility] Nifedipine (Procardia Xl) 90 mg PO DAILY [facility] Last Admin: 08/07/17 09:17 Dose: 90 mg Pantoprazole Sodium (Protonix Ec Tab) 40 mg PO DAILY [facility] Last Admin: 08/07/17 09:06 Dose: 40 mg Pneumococcal Polyvalent Vaccine (Pneumovax 23 Vaccine) 0.5 ml IM .ONCE ONE Stop: 08/09/17 10:01 Rosuvastatin Calcium (Crestor) 10 mg PO [facility] Last Admin: 08/06/17 22:01 Dose: 10 mg Saccharomyces Boulardii (Florastor) 250 mg PO BID [facility] Last Admin: 08/07/17 17:18 Dose: 250 mg Results - Vital Signs Recent Vital Signs: Last Vital Signs Temp 97.5 F L 08/07/17 07:15 Pulse 91 H 08/07/17 08:05 Resp 18 08/07/17 07:15 BP 153/76 H 08/07/17 09:06 Pulse Ox 94 L 08/07/17 07:15 - Labs Result Diagrams: 08/07/17 07:16 08/07/17 07:16 Labs: Laboratory Results - last 24 hr 08/06/17 08/06/17 08/06/17 20:46 20:46 20:46 WBC RBC Hgb Hct MCV MCH MCHC RDW Plt Count MPV Neut % (Auto) Lymph % (Auto) [place] % (Auto) Eos % (Auto) Baso % (Auto) Neut # Lymph # [place] # Eos # Baso # APTT Sodium Potassium Chloride Carbon Dioxide Anion Gap BUN Creatinine Est GFR ( Amer) Est GFR (Non-Af Amer) POC Glucose (mg/dL) Random Glucose Calcium Phosphorus Magnesium Iron 22 L TIBC 322 % Saturation 7 L Ferritin 27.4 Total Bilirubin AST ALT Alkaline Phosphatase Total Creatine Kinase 29 L CK-MB (Mass) 0.90 Troponin I, Quant 0.0730 Total Protein Albumin Globulin Albumin/Globulin Ratio Free T4 TSH 3rd Generation Influenza Typ A,B (EIA) Ur L.pneumophila Ag Mycoplasma pneumon IgM Grp A Beta Strep Ag 08/06/17 08/06/17 08/06/17 20:53 20:53 21:16 WBC RBC Hgb Hct MCV MCH MCHC RDW Plt Count MPV Neut % (Auto) Lymph % (Auto) [place] % (Auto) Eos % (Auto) Baso % (Auto) Neut # Lymph # [place] # Eos # Baso # APTT Sodium Potassium Chloride Carbon Dioxide Anion Gap BUN Creatinine Est GFR ( Amer) Est GFR (Non-Af Amer) POC Glucose (mg/dL) 274 H Random Glucose Calcium Phosphorus Magnesium Iron TIBC % Saturation Ferritin Total Bilirubin AST ALT Alkaline Phosphatase Total Creatine Kinase CK-MB (Mass) Troponin I, Quant Total Protein Albumin Globulin Albumin/Globulin Ratio Free T4 TSH 3rd Generation Influenza Typ A,B (EIA) Negative for flu a/b Ur L.pneumophila Ag Cancelled Mycoplasma pneumon IgM Negative Grp A Beta Strep Ag Negative 08/07/17 08/07/17 08/07/17 04:00 04:00 07:12 WBC RBC Hgb Hct MCV MCH MCHC RDW Plt Count MPV Neut % (Auto) Lymph % (Auto) [place] % (Auto) Eos % (Auto) Baso % (Auto) Neut # Lymph # [place] # Eos # Baso # APTT 37 H D Sodium Potassium Chloride Carbon Dioxide Anion Gap BUN Creatinine Est GFR ( Amer) Est GFR (Non-Af Amer) POC Glucose (mg/dL) 239 H Random Glucose Calcium Phosphorus Magnesium Iron TIBC % Saturation Ferritin Total Bilirubin AST ALT Alkaline Phosphatase Total Creatine Kinase 26 L CK-MB (Mass) 0.75 Troponin I, Quant 0.0700 Total Protein Albumin Globulin Albumin/Globulin Ratio Free T4 TSH 3rd Generation Influenza Typ A,B (EIA) Ur L.pneumophila Ag Mycoplasma pneumon IgM Grp A Beta Strep Ag 08/07/17 08/07/17 08/07/17 07:16 07:16 07:16 WBC 11.5 H RBC 4.73 Hgb 10.6 L Hct 33.9 L MCV 71.6 L MCH 22.4 L MCHC 31.2 L RDW 19.8 H Plt Count 379 MPV 8.9 Neut % (Auto) 67.4 Lymph % (Auto) 22.3 [place] % (Auto) 5.3 Eos % (Auto) 4.4 H Baso % (Auto) 0.6 Neut # 7.8 H Lymph # 2.6 [place] # 0.6 Eos # 0.5 Baso # 0.1 APTT Sodium 144 Potassium 4.0 Chloride 104 Carbon Dioxide 26 Anion Gap 18 BUN 26 H Creatinine 1.6 H Est GFR ( Amer) 51 Est GFR (Non-Af Amer) 42 POC Glucose (mg/dL) Random Glucose 249 H Calcium 9.4 Phosphorus 3.8 Magnesium 1.8 Iron TIBC % Saturation Ferritin Total Bilirubin 0.6 AST 22 ALT 29 Alkaline Phosphatase 116 Total Creatine Kinase CK-MB (Mass) Troponin I, Quant Total Protein 6.6 Albumin 3.2 L Globulin 3.4 Albumin/Globulin Ratio 0.9 L Free T4 1.53 TSH 3rd Generation 1.16 Influenza Typ A,B (EIA) Ur L.pneumophila Ag Mycoplasma pneumon IgM Grp A Beta Strep Ag 08/07/17 08/07/17 08/07/17 07:45 11:25 14:56 WBC RBC Hgb Hct MCV MCH MCHC RDW Plt Count MPV Neut % (Auto) Lymph % (Auto) [place] % (Auto) Eos % (Auto) Baso % (Auto) Neut # Lymph # [place] # Eos # Baso # APTT 34 61 H D Sodium Potassium Chloride Carbon Dioxide Anion Gap BUN Creatinine Est GFR ( Amer) Est GFR (Non-Af Amer) POC Glucose (mg/dL) 234 H Random Glucose Calcium Phosphorus Magnesium Iron TIBC % Saturation Ferritin Total Bilirubin AST ALT Alkaline Phosphatase Total Creatine Kinase CK-MB (Mass) Troponin I, Quant Total Protein Albumin Globulin Albumin/Globulin Ratio Free T4 TSH 3rd Generation Influenza Typ A,B (EIA) Ur L.pneumophila Ag Mycoplasma pneumon IgM Grp A Beta Strep Ag 08/07/17 16:56 WBC RBC Hgb Hct MCV MCH MCHC RDW Plt Count MPV Neut % (Auto) Lymph % (Auto) [place] % (Auto) Eos % (Auto) Baso % (Auto) Neut # Lymph # [place] # Eos # Baso # APTT Sodium Potassium Chloride Carbon Dioxide Anion Gap BUN Creatinine Est GFR ( Amer) Est GFR (Non-Af Amer) POC Glucose (mg/dL) 175 H Random Glucose Calcium Phosphorus Magnesium Iron TIBC % Saturation Ferritin Total Bilirubin AST ALT Alkaline Phosphatase Total Creatine Kinase CK-MB (Mass) Troponin I, Quant Total Protein Albumin Globulin Albumin/Globulin Ratio Free T4 TSH 3rd Generation Influenza Typ A,B (EIA) Ur L.pneumophila Ag Mycoplasma pneumon IgM Grp A Beta Strep Ag Assessment & Plan - Assessment and Plan (Free Text) Assessment: (1) Chest pain Assessment and Plan: Trops negative Patient had a positive stress test recently Needs atleast 3days off Eliquis for cardiac cath due to CKD Likely cath Tuesday or Tuesday (2) CHF exacerbation Assessment and Plan: Continue IV Lasix Check ECHO S/P AICD (3) Pneumonia Assessment and Plan: Afebrile, mild leukocytosis on Admission. Hx of productive cough for almost 2 weeks. CXR findings of left basilar consolidation and left pleural effusion Rocephin and Azithromycin given in the ED Will begin Rocephin and Azithromycin Q24 Start Florastor as well F/U Rapid strep, Influenza A and B studies, Urine Legionella, Mycoplasma studies F/U consult to Dr. Mena (Pulm) Status: Acute (4) CAD (coronary artery disease) Assessment and Plan: Hx of PCI (5) HTN (hypertension) Assessment and Plan: On Metoprolol, Procardia and Cozaar. (Hold parameters in place) Cont to monitor Status: Chronic (6) CKD (chronic kidney disease) Assessment and Plan: Hx of CKD GFR 45 which appears to be aroudn baseline F/U Dr. Miranda recommendations Status: Acute (7) Diabetes mellitus Assessment and Plan: Accuchecks ISS- High Dose F/U A1c Hold home medications at this time Status: Chronic (8) HLD (hyperlipidemia) Assessment and Plan: F/U lipid panel On Crestor 10 mg Po HS Dietary counseling enforced Status: Chronic (9) Constipation Assessment and Plan: Colace 100 mg PO TID until 18:00PM on 08/07/17. If patient has not had a stool, will add on Dulcolax. Status: Chronic (10) Anemia Assessment and Plan: Likely iron deficiency anemia based on prior admissions Iron Studies. F/U Ferritin, Iron, TIBC, % Saturation Monitor Hgb/Hct Status: Chronic (11) History of DVT (deep vein thrombosis) Assessment and Plan: Patient was previously on Eliquis for a prior history of DVT. At this time, will not initiate. Will rather start heparin drip in anticipation for cath procedure. Status: Acute (12) Prophylactic measure Assessment and Plan: Protonix 40 mg PO daily On Heparin Drip in anticipation for cardiac cath- Will f/u with Dr. Cortés as to when Status: Acute
--- NOTE | 2017-08-08 01:41 | CP.PCM.CON ---
History of Present Illness - History of Present Illness History of Present Illness: 77 year old male with a history of DM, HTN, HL, CAD s/p stent, pacemaker, DVT s/ p anticoagulation, CKD, admitted with shortness of breath, with anemia. The patient is unsure of having blood problems in the past. He notes his shortness of breath has been progressive and associated with a dry cough. He denies fevers and chills. He denies abnormal bleeding and bruising. Past medical history: DM, HTN, HL, CAD s/p stent, pacemaker, DVT s/p anticoagulation, CKD Past surgical history: Pacemaker Family history: Denies hematologic and oncologic problems Social history: Denies tobacco, alcohol, and illicit drug use. Allergies: NKA Review of systems: All remaining review of systems including HEENT, cardiovascular, respiratory, gastrointestinal, genitourinary, musculoskleletal, dermatologic, neurologic, and psychiatric are negative unless mentioned in the HPI. Past Patient History - Infectious Disease Hx of Infectious Diseases: None - Past Medical History & Family History Past Medical History?: Yes - Past Social History Smoking Status: Never Smoked Alcohol: None Drugs: Denies Home Situation {Lives}: With Family - CARDIAC Hx Hypercholesterolemia: Yes Hx Hypertension: Yes Hx Pacemaker: Yes Hx Peripheral Edema: Yes - PULMONARY Hx Asthma: Yes - RENAL Hx Chronic Kidney Disease: Yes (REANAL INSUFFICIENCY) Hx Kidney Stones: Yes - ENDOCRINE/METABOLIC Hx Endocrine Disorders: Yes Hx Diabetes Mellitus Type 2: Yes - MUSCULOSKELETAL/RHEUMATOLOGICAL Hx Arthritis: Yes - GENITOURINARY/GYNECOLOGICAL Hx Genitourinary Disorders: Yes Hx Prostate Problems: Yes (ELEVATED PSA) - PSYCHIATRIC Hx Anxiety: Yes Hx Depression: Yes Hx Substance Use: No - SURGICAL HISTORY Hx Surgeries: Yes Other/Comment: pacemaker on - ANESTHESIA Hx Anesthesia: Yes Hx Anesthesia Reactions: No Hx Malignant Hyperthermia: No Meds Allergies/Adverse Reactions: Allergies Allergy/AdvReac Type Severity Reaction Status Date / Time No Known Allergies Allergy Verified 08/06/17 13:20 - Medications Medications: Current Medications Acetylcysteine (Acetylcysteine 20%) 3 ml PO Q12H [facility] Last Admin: 08/07/17 16:03 Dose: 3 ml Aspirin (Ecotrin) 81 mg PO DAILY [facility] Last Admin: 08/07/17 09:06 Dose: 81 mg Docusate Sodium (Colace) 100 mg PO TID [facility] Last Admin: 08/07/17 17:18 Dose: 100 mg Ferrous Sulfate (Feosol) 325 mg PO BID [facility] Last Admin: 08/07/17 17:18 Dose: 325 mg Furosemide (Lasix) 20 mg IVP DAILY [facility] Ceftriaxone Sodium (Rocephin Iv 1 Gm Duplex) 50 mls @ 100 mls/hr IVPB DAILY [facility] Last Admin: 08/07/17 09:07 Dose: 100 mls/hr Azithromycin 500 mg/ Sodium (Chloride) 250 mls @ 167 mls/hr IVPB Q24H [facility] Last Admin: 08/07/17 09:08 Dose: 167 mls/hr Heparin Sodium/Sodium Chloride (Heparin 01650 Units/250ml 1/2 Normal Saline) 25 ,000 units in 250 mls @ 12.383 mls/hr IV .[id number] PRN; Protocol; 14 UNITS/KG/HR PRN Reason: ADJUST RATE PER PROTOCOL Last Admin: 08/07/17 18:46 Dose: 14 units/kg/hr, 12.383 mls/hr Insulin Aspart (Novolog) 0 unit SC ACHS [facility] PRN Reason: Protocol Last Admin: 08/07/17 21:28 Dose: Not Given Ipratropium [place] (Atrovent) 0.5 mg IH RQ6 PRN PRN Reason: Shortness of Breath Last Admin: 08/07/17 19:54 Dose: 0.5 mg Losartan Potassium (Cozaar) 100 mg PO DAILY [facility] Last Admin: 08/07/17 09:06 Dose: 100 mg Metoprolol Succinate (Toprol Xl) 50 mg PO DAILY [facility] Nifedipine (Procardia Xl) 90 mg PO DAILY [facility] Last Admin: 08/07/17 09:17 Dose: 90 mg Pantoprazole Sodium (Protonix Ec Tab) 40 mg PO DAILY [facility] Last Admin: 08/07/17 09:06 Dose: 40 mg Pneumococcal Polyvalent Vaccine (Pneumovax 23 Vaccine) 0.5 ml IM .ONCE ONE Stop: 08/09/17 10:01 Rosuvastatin Calcium (Crestor) 10 mg PO [facility] Last Admin: 08/07/17 21:25 Dose: 10 mg Saccharomyces Boulardii (Florastor) 250 mg PO BID [facility] Last Admin: 08/07/17 17:18 Dose: 250 mg Physical Exam - Head Exam Head Exam: ATRAUMATIC - Eye Exam Eye Exam: Normal appearance - ENT Exam ENT Exam: Mucous Membranes Dry - Respiratory Exam Respiratory Exam: NORMAL BREATHING PATTERN - Cardiovascular Exam Cardiovascular Exam: +S1, +S2 - GI/Abdominal Exam GI & Abdominal Exam: Normal Bowel Sounds Results - Vital Signs Recent Vital Signs: Last Vital Signs Temp 97.3 F L 08/07/17 23:17 Pulse 82 08/07/17 23:17 Resp 20 08/07/17 23:17 BP 125/66 08/07/17 23:17 Pulse Ox 93 L 08/07/17 23:17 - Labs Result Diagrams: 08/07/17 07:16 08/07/17 07:16 Labs: Laboratory Results - last 24 hr 08/07/17 08/07/17 08/07/17 04:00 04:00 07:12 WBC RBC Hgb Hct MCV MCH MCHC RDW Plt Count MPV Neut % (Auto) Lymph % (Auto) [place] % (Auto) Eos % (Auto) Baso % (Auto) Neut # Lymph # [place] # Eos # Baso # APTT 37 H D Sodium Potassium Chloride Carbon Dioxide Anion Gap BUN Creatinine Est GFR ( Amer) Est GFR (Non-Af Amer) POC Glucose (mg/dL) 239 H Random Glucose Calcium Phosphorus Magnesium Total Bilirubin AST ALT Alkaline Phosphatase Total Creatine Kinase 26 L CK-MB (Mass) 0.75 Troponin I, Quant 0.0700 Total Protein Albumin Globulin Albumin/Globulin Ratio Free T4 TSH 3rd Generation 08/07/17 08/07/17 08/07/17 07:16 07:16 07:16 WBC 11.5 H RBC 4.73 Hgb 10.6 L Hct 33.9 L MCV 71.6 L MCH 22.4 L MCHC 31.2 L RDW 19.8 H Plt Count 379 MPV 8.9 Neut % (Auto) 67.4 Lymph % (Auto) 22.3 [place] % (Auto) 5.3 Eos % (Auto) 4.4 H Baso % (Auto) 0.6 Neut # 7.8 H Lymph # 2.6 [place] # 0.6 Eos # 0.5 Baso # 0.1 APTT Sodium 144 Potassium 4.0 Chloride 104 Carbon Dioxide 26 Anion Gap 18 BUN 26 H Creatinine 1.6 H Est GFR ( Amer) 51 Est GFR (Non-Af Amer) 42 POC Glucose (mg/dL) Random Glucose 249 H Calcium 9.4 Phosphorus 3.8 Magnesium 1.8 Total Bilirubin 0.6 AST 22 ALT 29 Alkaline Phosphatase 116 Total Creatine Kinase CK-MB (Mass) Troponin I, Quant Total Protein 6.6 Albumin 3.2 L Globulin 3.4 Albumin/Globulin Ratio 0.9 L Free T4 1.53 TSH 3rd Generation 1.16 08/07/17 08/07/17 08/07/17 07:45 11:25 14:56 WBC RBC Hgb Hct MCV MCH MCHC RDW Plt Count MPV Neut % (Auto) Lymph % (Auto) [place] % (Auto) Eos % (Auto) Baso % (Auto) Neut # Lymph # [place] # Eos # Baso # APTT 34 61 H D Sodium Potassium Chloride Carbon Dioxide Anion Gap BUN Creatinine Est GFR ( Amer) Est GFR (Non-Af Amer) POC Glucose (mg/dL) 234 H Random Glucose Calcium Phosphorus Magnesium Total Bilirubin AST ALT Alkaline Phosphatase Total Creatine Kinase CK-MB (Mass) Troponin I, Quant Total Protein Albumin Globulin Albumin/Globulin Ratio Free T4 TSH 3rd Generation 08/07/17 08/07/17 08/07/17 16:56 20:26 21:06 WBC RBC Hgb Hct MCV MCH MCHC RDW Plt Count MPV Neut % (Auto) Lymph % (Auto) [place] % (Auto) Eos % (Auto) Baso % (Auto) Neut # Lymph # [place] # Eos # Baso # APTT 60 H Sodium Potassium Chloride Carbon Dioxide Anion Gap BUN Creatinine Est GFR ( Amer) Est GFR (Non-Af Amer) POC Glucose (mg/dL) 175 H 206 H Random Glucose Calcium Phosphorus Magnesium Total Bilirubin AST ALT Alkaline Phosphatase Total Creatine Kinase CK-MB (Mass) Troponin I, Quant Total Protein Albumin Globulin Albumin/Globulin Ratio Free T4 TSH 3rd Generation Assessment & Plan (1) Anemia Assessment and Plan: low iron stores anemia of CKD will start IV iron will check for monoclonal protein Status: Chronic (2) Leukocytosis Assessment and Plan: on antibiotics Status: Acute (3) Coagulopathy Assessment and Plan: on anticoagulation Thank you for this interesting consult. Status: Acute
[2017-08-08] MEDS: Ipratropium 0.02% Inhal Soln (0.5 mg/2.5 ml) UD IH PRN ×2 (02:11→18:32)
[2017-08-08 07:31] LABS: BASO # 0.1 K/uL (0.0-0.2); BASO % 0.8 % (0.0-2.0); EOS # 0.5 K/uL (0.0-0.7); EOS % 4.4 % (0.0-4.0); LYMPH # 2.5 K/uL (1.0-4.3); LYMPH % 20.5 % (20.0-40.0); MEAN CELL VOLUME 71.6 fL (80.0-94.0); MEAN CORPUSCULAR HEMOGLOBIN 22.3 pg (27.0-31.0); MEAN CORPUSCULAR HGB CONC 31.2 g/dL (33.0-37.0); MEAN PLATELET VOLUME 9.7 fL (7.2-11.7); MONO # 0.6 K/uL (0.0-0.8); MONO % 5.2 % (0.0-10.0); WHITE BLOOD COUNT 12.3 K/uL (4.8-10.8)
[2017-08-08 08:11] LABS: POTASSIUM 3.9 mmol/L (3.6-5.2)
[2017-08-08 08:13] LABS: BILIRUBIN,TOTAL 0.6 mg/dL (0.2-1.3)
[2017-08-08 08:14] LABS: CALCIUM 9.1 mg/dl (8.6-10.4); PHOSPHOROUS 4.3 mg/dL (2.5-4.5); TOTAL PROTEIN 7.4 g/dL (6.3-8.3)
[2017-08-08 08:15] LABS: MAGNESIUM 1.8 mg/dL (1.6-2.3)
[2017-08-08] MEDS ORDERED: Heparin25000 units/250ml 1/2NS 25,000 UNITS/250 ML BAG IV PRN ×2 (08:15)
[2017-08-08] MEDS: (Novolog) Insulin Aspart, Recombinant 100 u/ml 10 ml vial SC SCH ×4 (08:50→23:00)
[2017-08-08 09:09] LABS: FOLATE 4.6 ng/mL
--- NOTE | 2017-08-08 09:13 | CP.PCM.PN ---
<Sina White - Last Filed: 08/08/17 17:03> Subjective - Date & Time of Evaluation Date of Evaluation: 08/08/17 Time of Evaluation: 09:10 - Subjective Subjective: PGY [address] Lazar HPI: Patient seen and examined at bedside. States his chest poain is getting better but he stll has trouble breathing. No abdominal pain. 2 days with no BM even with ducolax yesterday. No F/C/N/V/D. No leg pain. Eating sitting up when i walked in. Aware he is going for a cath Tuesday. All questions answered, Objective - Vital Signs/Intake and Output Vital Signs (last 24 hours): Temp Pulse Resp BP Pulse Ox 98.2 F 73 18 121/67 97 08/08/17 07:30 08/08/17 07:30 08/08/17 07:30 08/08/17 07:30 08/08/17 07:30 Intake and Output: 08/08/17 08/08/17 06:59 18:59 Intake Total 419 Balance 419 - Medications Medications: Current Medications Acetylcysteine (Acetylcysteine 20%) 3 ml PO Q12H [facility] Last Admin: 08/07/17 16:03 Dose: 3 ml Aspirin (Ecotrin) 81 mg PO DAILY [facility] Last Admin: 08/07/17 09:06 Dose: 81 mg Docusate Sodium (Colace) 100 mg PO TID [facility] Last Admin: 08/07/17 17:18 Dose: 100 mg Ferric Sodium Gluconate Complex (Ferrlecit) 125 mg IVPB DAILY [facility] Stop: 08/16/17 10:01 Ferrous Sulfate (Feosol) 325 mg PO BID [facility] Last Admin: 08/07/17 17:18 Dose: 325 mg Furosemide (Lasix) 20 mg IVP DAILY [facility] Ceftriaxone Sodium (Rocephin Iv 1 Gm Duplex) 50 mls @ 100 mls/hr IVPB DAILY [facility] Last Admin: 08/07/17 09:07 Dose: 100 mls/hr Azithromycin 500 mg/ Sodium (Chloride) 250 mls @ 167 mls/hr IVPB Q24H [facility] Last Admin: 08/07/17 09:08 Dose: 167 mls/hr Heparin Sodium/Sodium Chloride (Heparin 41415 Units/250ml 1/2 Normal Saline) 25 ,000 units in 250 mls @ 12.383 mls/hr IV .[id number] PRN; Protocol; 14 UNITS/KG/HR PRN Reason: ADJUST RATE PER PROTOCOL Insulin Aspart (Novolog) 0 unit SC ACHS [facility] PRN Reason: Protocol Last Admin: 08/08/17 08:50 Dose: 6 unit Ipratropium [place] (Atrovent) 0.5 mg IH RQ6 PRN PRN Reason: Shortness of Breath Last Admin: 08/08/17 02:11 Dose: 0.5 mg Losartan Potassium (Cozaar) 100 mg PO DAILY [facility] Last Admin: 08/07/17 09:06 Dose: 100 mg Metoprolol Succinate (Toprol Xl) 50 mg PO DAILY [facility] Nifedipine (Procardia Xl) 90 mg PO DAILY [facility] Last Admin: 08/07/17 09:17 Dose: 90 mg Pantoprazole Sodium (Protonix Ec Tab) 40 mg PO DAILY [facility] Last Admin: 08/07/17 09:06 Dose: 40 mg Pneumococcal Polyvalent Vaccine (Pneumovax 23 Vaccine) 0.5 ml IM .ONCE ONE Stop: 08/09/17 10:01 Rosuvastatin Calcium (Crestor) 10 mg PO HS [facility] Last Admin: 08/07/17 21:25 Dose: 10 mg Saccharomyces Boulardii (Florastor) 250 mg PO BID [facility] Last Admin: 08/07/17 17:18 Dose: 250 mg - Labs Labs: 08/08/17 07:11 08/08/17 07:11 PT 12.5 SECONDS (9.7-12.2) H 08/06/17 14:28 INR 1.1 08/06/17 14:28 APTT 76 SECONDS (21-34) H D 08/08/17 07:11 - Constitutional Appears: Well, Non-toxic, No Acute Distress - Head Exam Head Exam: ATRAUMATIC, NORMAL INSPECTION, NORMOCEPHALIC - Eye Exam Eye Exam: EOMI Pupil Exam: NORMAL ACCOMODATION - ENT Exam ENT Exam: Mucous Membranes Moist - Respiratory Exam Respiratory Exam: Clear to Ausculation Bilateral, NORMAL BREATHING PATTERN. absent: Rhonchi, Wheezes, Stridor - Cardiovascular Exam Cardiovascular Exam: REGULAR RHYTHM - GI/Abdominal Exam GI & Abdominal Exam: Distended, Soft, Tenderness. absent: Normal Bowel Sounds - Rectal Exam Rectal Exam: Deferred - Extremities Exam Extremities Exam: absent: Calf Tenderness, Normal Capillary Refill, Tenderness - Neurological Exam Neurological Exam: Alert, Awake, Oriented x3 - Psychiatric Exam Psychiatric exam: Normal Affect, Normal Mood - Skin Skin Exam: Dry, Intact, Normal Color, Warm Assessment and Plan - Assessment and Plan (Free Text) Assessment: (1) Chest pain Assessment and Plan: All trops WNL EKG x2 = Sinus tachycardia notes with possible left atrial enlargement; no apparent T segment elevations in contiguous leads Cards (Moo) reccs * cardiac cath tomorrow TSH: 1.16 T4: 1.53 On Metoprolol 50 mg Po daily, Procardia 90 mg po daily, Cozaar 100 mg po daily Status: Acute (2) CHF exacerbation Assessment and Plan: Monitor on telemetry Lasix 20 mg IV QD, decreased due to rising Cr Height of bed at 45 degrees, Strict ins and outs, monitor daily weights F/U Echo Patient to continue blood pressure control as noted above Status: Chronic (3) Pneumonia Assessment and Plan: Will begin Rocephin and Azithromycin Q24 Start Florastor as well Rapid strep, Influenza A and B studies, Urine Legionella, Mycoplasma studies = Negative Dr. Mena (Pul) * Continue IV abx, Culture/sensitivity, CXR, Venous Doppler Status: Acute (4) CAD (coronary artery disease) Assessment and Plan: Hx of cardiac stent in the past F/U Cardio recommendations. Patient will likely benefit from cath Currently on Heparin Drip Status: Acute (5) HTN (hypertension) Assessment and Plan: On Metoprolol, Procardia and Cozaar. (Hold parameters in place) Cont to monitor Status: Chronic (6) CKD (chronic kidney disease) Assessment and Plan: Hx of CKD GFR 45 which appears to be around baseline F/U Dr. Miranda recommendations Status: Acute (7) Diabetes mellitus Assessment and Plan: Accuchecks ISS- High Dose A1c 8.4 Hold home medications at this time Status: Chronic (8) HLD (hyperlipidemia) Assessment and Plan: On Crestor 10 mg Po HS Dietary counseling enforced Status: Chronic (9) Constipation Assessment and Plan: Colace 100 mg PO TID until 18:00PM on 08/07/17. If patient has not had a stool, will add on Dulcolax. Status: Chronic (10) Anemia Assessment and Plan: Likely iron deficiency anemia based on prior admissions Iron Studies. Ferritin 27.4, Iron 22, TIBC 322, % Saturation 7 Monitor Hgb/Hct Status: Chronic (11) History of DVT (deep vein thrombosis) Assessment and Plan: Patient was previously on Eliquis for a prior history of DVT. At this time, will not initiate. Will rather start heparin drip in anticipation for cath procedure. Status: Acute (12) Prophylactic measure Assessment and Plan: Protonix 40 mg PO daily On Heparin Drip in anticipation for cardiac cath- Will f/u with Dr. Cortés as to when to hold Status: Acute <Mariangel Lazar V - Last Filed: 08/08/17 20:49> Objective - Vital Signs/Intake and Output Vital Signs (last 24 hours): Temp Pulse Resp BP Pulse Ox 97.4 F L 79 20 114/69 96 08/08/17 15:00 08/08/17 15:00 08/08/17 15:00 08/08/17 15:00 08/08/17 15:00 - Medications Medications: Current Medications Acetylcysteine (Acetylcysteine 20%) 3 ml PO Q12H [facility] Last Admin: 08/08/17 15:44 Dose: 3 ml Aspirin (Ecotrin) 81 mg PO DAILY [facility] Last Admin: 08/08/17 10:20 Dose: 81 mg Docusate Sodium (Colace) 100 mg PO TID [facility] Last Admin: 08/08/17 17:39 Dose: 100 mg Ferric Sodium Gluconate Complex (Ferrlecit) 125 mg IVPB DAILY [facility] Stop: 08/16/17 10:01 Last Admin: 08/08/17 10:22 Dose: 125 mg Ferrous Sulfate (Feosol) 325 mg PO BID [facility] Last Admin: 08/08/17 17:39 Dose: 325 mg Furosemide (Lasix) 20 mg IVP DAILY [facility] Last Admin: 08/08/17 10:19 Dose: 20 mg Ceftriaxone Sodium (Rocephin Iv 1 Gm Duplex) 50 mls @ 100 mls/hr IVPB DAILY [facility] Last Admin: 08/07/17 09:07 Dose: 100 mls/hr Azithromycin 500 mg/ Sodium (Chloride) 250 mls @ 167 mls/hr IVPB Q24H [facility] Last Admin: 08/07/17 09:08 Dose: 167 mls/hr Heparin Sodium/Sodium Chloride (Heparin 93882 Units/250ml 1/2 Normal Saline) 25 ,000 units in 250 mls @ 12.383 mls/hr IV .[id number] PRN; Protocol; 14 UNITS/KG/HR PRN Reason: ADJUST RATE PER PROTOCOL Stop: 08/08/17 23:59 Last Admin: 08/08/17 15:57 Dose: 14 units/kg/hr, 12.383 mls/hr Insulin Aspart (Novolog) 0 unit SC ACHS [facility] PRN Reason: Protocol Last Admin: 08/08/17 17:30 Dose: 8 unit Ipratropium [place] (Atrovent) 0.5 mg IH RQ6 PRN PRN Reason: Shortness of Breath Last Admin: 08/08/17 18:32 Dose: 0.5 mg Losartan Potassium (Cozaar) 100 mg PO DAILY [facility] Last Admin: 08/08/17 10:20 Dose: 100 mg Metoprolol Succinate (Toprol Xl) 50 mg PO DAILY [facility] Last Admin: 08/08/17 10:20 Dose: 50 mg Nifedipine (Procardia Xl) 90 mg PO DAILY [facility] Last Admin: 08/08/17 10:34 Dose: 90 mg Pantoprazole Sodium (Protonix Ec Tab) 40 mg PO DAILY [facility] Last Admin: 08/08/17 10:21 Dose: 40 mg Pneumococcal Polyvalent Vaccine (Pneumovax 23 Vaccine) 0.5 ml IM .ONCE ONE Stop: 08/09/17 10:01 Rosuvastatin Calcium (Crestor) 10 mg PO HS [facility] Last Admin: 08/07/17 21:25 Dose: 10 mg Saccharomyces Boulardii (Florastor) 250 mg PO BID [facility] Last Admin: 08/08/17 17:39 Dose: 250 mg - Labs Labs: 08/08/17 07:11 08/08/17 07:11 PT 12.5 SECONDS (9.7-12.2) H 08/06/17 14:28 INR 1.1 08/06/17 14:28 APTT 76 SECONDS (21-34) H D 08/08/17 07:11 Attending/Attestation - Attestation I have personally seen and examined this patient.: Yes I have fully participated in the care of the patient.: Yes I have reviewed all pertinent clinical information, including history, physical exam and plan: Yes Notes (Text): Patient seen, examined and case discussed with day-time resident. Patient seen this morning. Patient reports chest pain is improved. patient reports shortness of breathe, cannot tolerate walking, denies smoking history but reports smokes. Patient was not aware he was going to cardiac cath this morning. Assistance for translation with solomon [place] Speaking medical student. Patient to have cardiac cath tomorrow with Dr. Cortés. Heparin drip to stop at midnight. patient has history of abnormal stress test. Patient's arb d/c in light of rising Cr. Patient started on gentle IV hydration prior to cath tomorrow. Assessment/Plan (1) Chest pain Assessment and Plan: * Cardiology (Dr. Cortés) on board-->help appreciated * All trops WNL * EKG x2 = Sinus tachycardia notes with possible left atrial enlargement; no apparent T segment elevations in contiguous leads * Heparin drip until midnight per cardiology * Patient to have cardiac catherization tomorrow. Patient has hx of abnormal stress test. * Echocardiogram (08/08/17): left ventrcile systolic function is severely impaired. EF: 25-30%; global hypokinesis of left ventricle mild aortic regurgitation. Mitral regurgitation is moderate. Moderate-severe pulmonary hypertesnion * hx of ACID * TSH: 1.16 * T4: 1.53 * On Metoprolol 50 mg Po daily, Procardia 90 mg po daily, Cozaar 100 mg po daily Status: Acute (2) Acute Systolic CHF exacerbation Assessment and Plan: * Monitor on telemetry * Lasix 20 mg IV QD, decreased due to rising Cr * Height of bed at 45 degrees, Strict ins and outs, monitor daily weights * Echocardiogram (08/08/17): left ventrcile systolic function is severely impaired. EF: 25-30%; global hypokinesis of left ventricle mild aortic regurgitation. Mitral regurgitation is moderate. Moderate-severe pulmonary hypertension * On Metoprolol 50 mg Po daily, Procardia 90 mg po daily, Cozaar 100 mg po daily Status: Acute (3) Pneumonia Assessment and Plan: * Pulmonary (Dr. Mena) on board-->help appreciated * Rocephin 1 gram IV q daily and azithromycin 500mg IV q daily * Florastor 250mg PO bid * Rapid strep, Influenza A and B studies, Urine Legionella, Mycoplasma studies = Negative * per pulm, Continue IV abx, Culture/sensitivity, CXR, Venous Doppler Status: Acute (4) CAD (coronary artery disease) Assessment and Plan: * Hx of cardiac stent in the past * Patient will likely benefit from cardiac cath tomorrow * Currently on Heparin Drip to finish at midnight Status: Acute (5) HTN (hypertension) Assessment and Plan: * On Metoprolol, Procardia and Cozaar. (Hold parameters in place) * Cont to monitor Status: Chronic (6) CKD (chronic kidney disease) Assessment and Plan: * Hx of CKD * GFR 45 which appears to be around baseline * Stopped ARB given rise in CR * Patient placed on gentle IV hydration (50 cc/hr) prior to cath tomorrow and on N-acetylcysteine to reduce contrast induce nephropathy Status: Acute (7) Diabetes mellitus Assessment and Plan: * Accuchecks QAC and Hs * ISS- High Dose * A1c 8.4 * Hold home medications at this time Status: Chronic (8) HLD (hyperlipidemia) Assessment and Plan: * On Crestor 10 mg Po HS * Dietary counseling enforced Status: Chronic (9) Constipation Assessment and Plan: * Colace 100 mg PO TID until 18:00PM on 08/07/17. If patient has not had a stool , will add on Dulcolax. Status: Chronic (10) Anemia Assessment and Plan: * Heme-oncology (Dr. Giles bender) on board-->help appreciated * Likely iron deficiency anemia based on prior admissions * Iron Studies. * Ferritin 27.4, Iron 22, TIBC 322, % Saturation 7 * Monitor Hgb/Hct Status: Chronic (11) History of DVT (deep vein thrombosis) Assessment and Plan: * Patient was previously on Eliquis for a prior history of DVT. * At this time, will not initiate. Will rather start heparin drip in anticipation for cath procedure. Heparin drip to stop at midnight Status: Acute (12) Prophylactic measure Assessment and Plan: * pepcid 20mg PO daily * On Heparin Drip in anticipation for cardiac cath-to stop tonight for anticupated * Patient started on gentle iv hydration (cr vinayak from 1.6 to 1.9) in light of cath tomorrow. Status: Acute
[2017-08-08] MEDS: Metoprolol Succinate 50 mg XL Tab PO SCH (10:20)
[2017-08-08] MEDS: Saccharomyces Boulardi 250 mg Cap PO SCH ×2 (10:20→17:39)
[2017-08-08] MEDS: Pantoprazole 40 mg EC Tab PO SCH (10:21)
[2017-08-08] MEDS: Ferric Sodium Gluconat Complex 62.5 mg/5 ml Vial IVPB SCH (10:22)
[2017-08-08] MEDS: NIFEdipine 90 mg ER Tab PO SCH (10:34)
[2017-08-08] MEDS: Azithromycin 500 MG in Sodium Chloride 0.9% 250 ML IVPB SCH (11:20)
[2017-08-08] MEDS ORDERED: Perflutren Lipid Microsphere 1.5 ML SUS IV ONE (12:15)
--- NOTE | 2017-08-08 12:48 | CARD ---
APPROVED REPORT EKG Measurement Heart [id number] <Conclusion> Sinus rhythm with sinus arrhythmia with occasional premature ventricular complexes Possible Left atrial enlargement Left anterior fascicular block Possible Anterior infarct, age undetermined Abnormal ECG
[2017-08-08] MEDS: cefTRIAXone IV 1 gm in Dextros 50 ML IVPB SCH (14:00)
[2017-08-08] MEDS: Acetylcysteine 20% Inhal Soln (4ml) PO SCH (15:44)
--- NOTE | 2017-08-08 19:39 | CARD ---
APPROVED REPORT EXAM: Two-dimensional and M-mode echocardiogram with Doppler and color Doppler. Other Information Quality : GoodRhythm : Atrial Fibrillation INDICATION Pericardial Effusion CAD Chest Pain Congenital Heart Disease RISK FACTORS Hypertension Diabetes 2D DIMENSIONS IVSd1.0 (0.7-1.1cm)LVDd6.4 (3.9-5.9cm) PWd0.7 (0.7-1.1cm)LVDs5.9 (2.5-4.0cm) FS (%) 7.2 %LVEF (%)26.0 (>50%) M-Mode DIMENSIONS RVDd1.11 (2.1-3.2cm)Left Atrium (MM)4.33 (2.5-4.0cm) IVSd0.74 (0.7-1.1cm)Aortic Root2.64 (2.2-3.7cm) LVDd7.30 (4.0-5.6cm)Aortic Cusp Exc.2.06 (1.5-2.0cm) PWd0.87 (0.7-1.1cm)FS (%) 12 % LVDs6.39 (2.0-3.8cm)LVEF (%)26 (>50%) Aortic Valve AI P 1/2 [id number] Mitral Valve MV E Ivpynksv861.9cm/sMV A Lbgtuqxt07.9cm/sE/A ratio2.7 TDI E/Lateral E'0.0E/Medial E'0.0 Tricuspid Valve TR Peak [id number]/sTR Peak Gr.[id number] LEFT VENTRICLE The Left Ventricle is mildly dilated. There is normal left ventricular wall thickness. Left ventricle systolic function is severely impaired. The Ejection Fraction is 25-30%. with the use of echo contrast There is global hypokinesis of the left ventricle. with the use of echo contrast Transmitral Doppler flow pattern is Grade II-pseudonormal filling dynamics. There is no ventricular septal defect visualized. RIGHT VENTRICLE The right ventricle is normal size. The right ventricular systolic function is normal. ATRIA The left atrium is mildly dilated. The right atrium is mildly dilated. AORTIC VALVE The aortic valve is mildly sclerotic. The aortic valve is tri-cuspid. There is mild aortic regurgitation. There is no aortic valvular stenosis. MITRAL VALVE Mitral annular calcification is mild. There is no evidence of mitral valve prolapse. Mitral regurgitation is moderate. TRICUSPID VALVE The tricuspid valve is normal in structure. There is moderate to severe tricuspid regurgitation. Right ventricular systolic pressure is estimated at greater than 60 mmHg. There is moderate-severe pulmonary hypertension. PULMONIC VALVE The pulmonic valve is not well visualized. There is trace pulmonic valvular regurgitation. GREAT VESSELS The aortic root is normal in size. The IVC is normal in size and collapses >50% with inspiration. PERICARDIAL EFFUSION There is a trace circumferential pericardial effusion. There is moderate pleural effusion. <Conclusion> Left ventricle systolic function is severely impaired. The Ejection Fraction is 25-30%. with the use of echo contrast There is global hypokinesis of the left ventricle. with the use of echo contrast Transmitral Doppler flow pattern is Grade II-pseudonormal filling dynamics. There is mild aortic regurgitation. Mitral regurgitation is moderate. There is moderate-severe pulmonary hypertension.
[2017-08-08] MEDS ORDERED: Bisacodyl 5mg EC Tab PO ONE (20:45)
[2017-08-08] MEDS: Sodium Chloride 0.9% 1,000 ML IV SCH (21:37)
[2017-08-09] MEDS: Acetylcysteine 20% Inhal Soln (4ml) PO SCH ×3 (00:28→23:58)
[2017-08-09 03:05] LABS: TOTAL PROTEIN, SERUM 6.9 g/dL (6.1-8.1)
[2017-08-09] MEDS: Ipratropium 0.02% Inhal Soln (0.5 mg/2.5 ml) UD IH PRN (04:03)
[2017-08-09 06:58] LABS: BASO # 0.1 K/uL (0.0-0.2); BASO % 0.4 % (0.0-2.0); EOS # 0.5 K/uL (0.0-0.7); HEMATOCRIT 32.7 % (35.0-51.0); LYMPH # 2.2 K/uL (1.0-4.3); LYMPH % 17.2 % (20.0-40.0); MEAN CELL VOLUME 71.9 fL (80.0-94.0); MEAN CORPUSCULAR HEMOGLOBIN 22.5 pg (27.0-31.0); MEAN CORPUSCULAR HGB CONC 31.3 g/dL (33.0-37.0); MONO # 0.6 K/uL (0.0-0.8); MONO % 4.6 % (0.0-10.0); RED CELL DISTRIBUTION WIDTH 19.8 % (11.5-14.5); WHITE BLOOD COUNT 12.8 K/uL (4.8-10.8)
[2017-08-09 07:03] LABS: INR 1.1
[2017-08-09 07:43] LABS: POTASSIUM 3.9 mmol/L (3.6-5.2)
[2017-08-09 07:45] LABS: BILIRUBIN,TOTAL 0.5 mg/dL (0.2-1.3); CALCIUM 8.4 mg/dl (8.6-10.4); TOTAL PROTEIN 6.9 g/dL (6.3-8.3)
[2017-08-09] MEDS: (Novolog) Insulin Aspart, Recombinant 100 u/ml 10 ml vial SC SCH ×4 (08:09→22:52)
[2017-08-09] MEDS: Saccharomyces Boulardi 250 mg Cap PO SCH ×2 (09:02→18:38)
[2017-08-09] MEDS: Metoprolol Succinate 50 mg XL Tab PO SCH (09:02)
[2017-08-09] MEDS: Ferric Sodium Gluconat Complex 62.5 mg/5 ml Vial IVPB SCH (09:08)
[2017-08-09] MEDS ORDERED: Pneumococcal 23-Valent Vaccine IM ONE (10:00)
[2017-08-09] MEDS: NIFEdipine 90 mg ER Tab PO SCH (10:03)
[2017-08-09] MEDS: Azithromycin 500 MG in Sodium Chloride 0.9% 250 ML IVPB SCH (10:40)
[2017-08-09] MEDS: cefTRIAXone IV 1 gm in Dextros 50 ML IVPB SCH (10:59)
--- NOTE | 2017-08-09 11:33 | CP.PCM.PN ---
Subjective - Date & Time of Evaluation Date of Evaluation: 08/09/17 Time of Evaluation: 11:31 - Subjective Subjective: seen and examined labs noted cardiac cath on hold Objective - Vital Signs/Intake and Output Vital Signs (last 24 hours): Temp Pulse Resp BP Pulse Ox 98.2 F 94 H 20 137/71 97 08/09/17 07:30 08/09/17 07:30 08/09/17 07:30 08/09/17 09:03 08/09/17 07:30 Intake and Output: 08/09/17 08/09/17 06:59 18:59 Intake Total 890 Balance 890 - Medications Medications: Current Medications Acetylcysteine (Acetylcysteine 20%) 3 ml PO Q12H [facility] Last Admin: 08/09/17 00:28 Dose: 3 ml Aspirin (Ecotrin) 81 mg PO DAILY [facility] Last Admin: 08/09/17 09:02 Dose: 81 mg Docusate Sodium (Colace) 100 mg PO TID [facility] Last Admin: 08/09/17 09:02 Dose: 100 mg Famotidine (Pepcid) 20 mg PO DAILY [facility] Last Admin: 08/09/17 09:01 Dose: 20 mg Ferric Sodium Gluconate Complex (Ferrlecit) 125 mg IVPB DAILY [facility] Stop: 08/16/17 10:01 Last Admin: 08/09/17 09:08 Dose: 125 mg Furosemide (Lasix) 20 mg IVP DAILY [facility] Last Admin: 08/09/17 09:03 Dose: 20 mg Ceftriaxone Sodium (Rocephin Iv 1 Gm Duplex) 50 mls @ 100 mls/hr IVPB DAILY [facility] Last Admin: 08/09/17 10:59 Dose: 100 mls/hr Azithromycin 500 mg/ Sodium (Chloride) 250 mls @ 167 mls/hr IVPB Q24H [facility] Last Admin: 08/09/17 10:40 Dose: 167 mls/hr Sodium Chloride (Sodium Chloride 0.9%) 1,000 mls @ 50 mls/hr IV .Q20H [facility] Last Admin: 08/08/17 21:37 Dose: 50 mls/hr Insulin Aspart (Novolog) 0 unit SC ACHS [facility] F[facility]NANDO PRN Reason: Protocol Last Admin: 08/09/17 08:09 Dose: Not Given Ipratropium [place] (Atrovent) 0.5 mg IH RQ6 PRN PRN Reason: Shortness of Breath Last Admin: 08/09/17 04:03 Dose: 0.5 mg Metoprolol Succinate (Toprol Xl) 50 mg PO DAILY [facility] Last Admin: 08/09/17 09:02 Dose: 50 mg Nifedipine (Procardia Xl) 90 mg PO DAILY [facility] Last Admin: 08/09/17 10:03 Dose: 90 mg Rosuvastatin Calcium (Crestor) 10 mg PO HS [facility] Last Admin: 08/08/17 21:36 Dose: 10 mg Saccharomyces Boulardii (Florastor) 250 mg PO BID [facility] Last Admin: 08/09/17 09:02 Dose: 250 mg - Labs Labs: 08/09/17 06:45 08/09/17 06:45 PT 12.8 SECONDS (9.7-12.2) H 08/09/17 06:45 INR 1.1 08/09/17 06:45 APTT 36 SECONDS (21-34) H D 08/09/17 06:45 - Constitutional Appears: No Acute Distress, Chronically Ill - Head Exam Head Exam: NORMAL INSPECTION - Eye Exam Eye Exam: Normal appearance - ENT Exam ENT Exam: Mucous Membranes Moist, Normal Exam - Neck Exam Neck Exam: Normal Inspection - Respiratory Exam Respiratory Exam: Decreased Breath Sounds, NORMAL BREATHING PATTERN - Cardiovascular Exam Cardiovascular Exam: REGULAR RHYTHM, RRR - GI/Abdominal Exam GI & Abdominal Exam: Distended, Soft - Extremities Exam Extremities Exam: Normal Inspection, Pedal Edema (trace) Assessment and Plan (1) Acute on chronic renal failure Status: Acute (2) CHF (congestive heart failure) Status: Acute (3) History of DVT (deep vein thrombosis) Status: Acute (4) CAD (coronary artery disease) Status: Acute (5) CKD (chronic kidney disease) Status: Acute - Assessment and Plan (Free Text) Assessment: - no acei/ arb agree w/ gentle fluids, hold lasix. mucomyst bladder scan to r/o retention recommend waiting for cardiac cath until creatinine improved
--- NOTE | 2017-08-09 13:44 | CP.PCM.PN ---
<Sina White - Last Filed: 08/09/17 13:42> Subjective - Date & Time of Evaluation Date of Evaluation: 08/09/17 Time of Evaluation: 13:42 - Subjective Subjective: PGY1 Note for Dr. Lazar HPI: Patient is seen and examined at bedside. Confused. 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 His daughter is [resent and was told about the cath again. She states that he is confused at baseline. Due to his rise in creatinine the cath was postponed. Patient complains of some chest pain and SOB but is unchanged since previous examinations. Denies N/V/D/F. Objective - Vital Signs/Intake and Output Vital Signs (last 24 hours): Temp Pulse Resp BP Pulse Ox 98.2 F 94 H 20 137/71 97 08/09/17 07:30 08/09/17 07:30 08/09/17 07:30 08/09/17 09:03 08/09/17 07:30 Intake and Output: 08/09/17 08/09/17 06:59 18:59 Intake Total 890 Balance 890 - Medications Medications: Current Medications Acetylcysteine (Acetylcysteine 20%) 3 ml PO Q12H [facility] Last Admin: 08/09/17 12:28 Dose: 3 ml Aspirin (Ecotrin) 81 mg PO DAILY [facility] Last Admin: 08/09/17 09:02 Dose: 81 mg Docusate Sodium (Colace) 100 mg PO TID [facility] Last Admin: 08/09/17 09:02 Dose: 100 mg Famotidine (Pepcid) 20 mg PO DAILY [facility] Last Admin: 08/09/17 09:01 Dose: 20 mg Ferric Sodium Gluconate Complex (Ferrlecit) 125 mg IVPB DAILY [facility] Stop: 08/16/17 10:01 Last Admin: 08/09/17 09:08 Dose: 125 mg Furosemide (Lasix) 20 mg IVP DAILY [facility] Last Admin: 08/09/17 09:03 Dose: 20 mg Ceftriaxone Sodium (Rocephin Iv 1 Gm Duplex) 50 mls @ 100 mls/hr IVPB DAILY [facility] Last Admin: 08/09/17 10:59 Dose: 100 mls/hr Azithromycin 500 mg/ Sodium (Chloride) 250 mls @ 167 mls/hr IVPB Q24H [facility] Last Admin: 08/09/17 10:40 Dose: 167 mls/hr Sodium Chloride (Sodium Chloride 0.9%) 1,000 mls @ 50 mls/hr IV .Q20H [facility] Last Admin: 08/08/17 21:37 Dose: 50 mls/hr Heparin Sodium/Sodium Chloride (Heparin 86106 Units/250ml 1/2 Normal Saline) 25 ,000 units in 250 mls @ 0 mls/hr IV .Q0M PRN; Protocol; Per Protocol PRN Reason: PROTOCOL Insulin Aspart (Novolog) 0 unit SC ACHS LUIS FERNANDO PRN Reason: Protocol Last Admin: 08/09/17 12:29 Dose: 6 unit Ipratropium [place] (Atrovent) 0.5 mg IH RQ6 PRN PRN Reason: Shortness of Breath Last Admin: 08/09/17 04:03 Dose: 0.5 mg Metoprolol Succinate (Toprol Xl) 50 mg PO DAILY [facility] Last Admin: 08/09/17 09:02 Dose: 50 mg Nifedipine (Procardia Xl) 90 mg PO DAILY [facility] Last Admin: 08/09/17 10:03 Dose: 90 mg Rosuvastatin Calcium (Crestor) 10 mg PO HS [facility] Last Admin: 08/08/17 21:36 Dose: 10 mg Saccharomyces Boulardii (Florastor) 250 mg PO BID [facility] Last Admin: 08/09/17 09:02 Dose: 250 mg - Labs Labs: 08/09/17 06:45 08/09/17 06:45 PT 12.8 SECONDS (9.7-12.2) H 08/09/17 06:45 INR 1.1 08/09/17 06:45 APTT 36 SECONDS (21-34) H D 08/09/17 06:45 - Constitutional Appears: Well, Non-toxic, No Acute Distress - Head Exam Head Exam: ATRAUMATIC, NORMAL INSPECTION, NORMOCEPHALIC - Eye Exam Eye Exam: EOMI Pupil Exam: NORMAL ACCOMODATION - ENT Exam ENT Exam: Mucous Membranes Moist - Respiratory Exam Respiratory Exam: Clear to Ausculation Bilateral, NORMAL BREATHING PATTERN - Cardiovascular Exam Cardiovascular Exam: REGULAR RHYTHM - GI/Abdominal Exam GI & Abdominal Exam: Soft. absent: Distended, Tenderness, Normal Bowel Sounds - Neurological Exam Neurological Exam: Alert, Awake, Oriented x3 - Psychiatric Exam Psychiatric exam: Normal Affect, Normal Mood - Skin Skin Exam: Dry, Intact, Normal Color, Warm Assessment and Plan - Assessment and Plan (Free Text) Assessment: (1) Chest pain Assessment and Plan: All trops WNL EKG x2 = Sinus tachycardia notes with possible left atrial enlargement; no apparent T segment elevations in contiguous leads Cards (Moo) reccs * Cath cancelled due to rise in Cr TSH: 1.16 T4: 1.53 On Metoprolol 50 mg Po daily, Procardia 90 mg po daily, Cozaar 100 mg po daily Status: Acute (2) CHF exacerbation Assessment and Plan: Monitor on telemetry Lasix 20 mg IV QD, decreased due to rising Cr - on hold because of continues rise in Cr Height of bed at 45 degrees, Strict ins and outs, monitor daily weights Echo - 25% systolic failure Patient to continue blood pressure control as noted above F/U repeat CXR Status: Chronic (3) Pneumonia Assessment and Plan: Will begin Rocephin and Azithromycin Q24 Start Florastor as well Rapid strep, Influenza A and B studies, Urine Legionella, Mycoplasma studies = Negative Dr. Mena (Pul) * Continue IV abx, Culture/sensitivity, CXR, Venous Doppler Status: Acute (4) CAD (coronary artery disease) Assessment and Plan: Hx of cardiac stent in the past Cardio (Moo) Patient will likely benefit from cath Currently on Heparin Drip Status: Acute (5) HTN (hypertension) Assessment and Plan: On Metoprolol, Procardia and Cozaar. (Hold parameters in place) Cont to monitor Status: Chronic (6) CKD (chronic kidney disease) Assessment and Plan: Hx of CKD GFR 45 which appears to be around baseline F/U Dr. Miranda recommendations Status: Acute (7) Diabetes mellitus Assessment and Plan: Accuchecks ISS- High Dose A1c 8.4 Hold home medications at this time Status: Chronic (8) HLD (hyperlipidemia) Assessment and Plan: On Crestor 10 mg Po HS Dietary counseling enforced Status: Chronic (9) Constipation Assessment and Plan: Colace 100 mg PO TID until 18:00PM on 08/07/17. If patient has not had a stool, will add on Dulcolax. Status: Chronic (10) Anemia Assessment and Plan: Likely iron deficiency anemia based on prior admissions Iron Studies. Ferritin 27.4, Iron 22, TIBC 322, % Saturation 7 Monitor Hgb/Hct Status: Chronic (11) History of DVT (deep vein thrombosis) Assessment and Plan: Patient was previously on Eliquis for a prior history of DVT. At this time, will not initiate. Will rather start heparin drip in anticipation for cath procedure. Status: Acute (12) Prophylactic measure Assessment and Plan: Protonix 40 mg PO daily On Heparin Drip in anticipation for cardiac cath- Will f/u with Dr. Cortés as to when to hold Status: Acute <Mariangel Lazar V - Last Filed: 08/09/17 23:10> Objective - Vital Signs/Intake and Output Vital Signs (last 24 hours): Temp Pulse Resp BP Pulse Ox 98 F 83 20 119/66 96 08/09/17 15:00 08/09/17 15:00 08/09/17 15:00 08/09/17 15:00 08/09/17 15:00 Intake and Output: 08/09/17 08/10/17 18:59 06:59 Intake Total 540 Output Total 700 Balance -160 - Medications Medications: Current Medications Acetylcysteine (Acetylcysteine 20%) 3 ml PO Q12H [facility] Last Admin: 08/09/17 12:28 Dose: 3 ml Aspirin (Ecotrin) 81 mg PO DAILY [facility] Last Admin: 08/09/17 09:02 Dose: 81 mg Docusate Sodium (Colace) 100 mg PO TID [facility] Last Admin: 08/09/17 18:38 Dose: 100 mg Famotidine (Pepcid) 20 mg PO DAILY [facility] Last Admin: 08/09/17 09:01 Dose: 20 mg Ferric Sodium Gluconate Complex (Ferrlecit) 125 mg IVPB DAILY [facility] Stop: 08/16/17 10:01 Last Admin: 08/09/17 09:08 Dose: 125 mg Furosemide (Lasix) 20 mg IVP DAILY [facility] Last Admin: 08/09/17 09:03 Dose: 20 mg Ceftriaxone Sodium (Rocephin Iv 1 Gm Duplex) 50 mls @ 100 mls/hr IVPB DAILY [facility] Last Admin: 08/09/17 10:59 Dose: 100 mls/hr Azithromycin 500 mg/ Sodium (Chloride) 250 mls @ 167 mls/hr IVPB Q24H [facility] Last Admin: 08/09/17 10:40 Dose: 167 mls/hr Sodium Chloride (Sodium Chloride 0.9%) 1,000 mls @ 50 mls/hr IV .Q20H [facility] Last Admin: 08/08/17 21:37 Dose: 50 mls/hr Heparin Sodium/Sodium Chloride (Heparin 84503 Units/250ml 1/2 Normal Saline) 25 ,000 units in 250 mls @ 11.376 mls/hr IV .[id number] PRN; Protocol; 12 UNITS/KG/HR PRN Reason: PROTOCOL Last Admin: 08/09/17 15:05 Dose: 12 units/kg/hr, 11.376 mls/hr Insulin Aspart (Novolog) 0 unit SC ACHS LUIS FERNANDO PRN Reason: Protocol Last Admin: 08/09/17 22:52 Dose: Not Given Ipratropium [place] (Atrovent) 0.5 mg IH RQ6 PRN PRN Reason: Shortness of Breath Last Admin: 08/09/17 04:03 Dose: 0.5 mg Metoprolol Succinate (Toprol Xl) 50 mg PO DAILY [facility] Last Admin: 08/09/17 09:02 Dose: 50 mg Nifedipine (Procardia Xl) 90 mg PO DAILY [facility] Last Admin: 08/09/17 10:03 Dose: 90 mg Rosuvastatin Calcium (Crestor) 10 mg PO HS [facility] Last Admin: 08/09/17 22:50 Dose: 10 mg Saccharomyces Boulardii (Florastor) 250 mg PO BID [facility] Last Admin: 08/09/17 18:38 Dose: 250 mg - Labs Labs: 08/09/17 06:45 08/09/17 06:45 PT 12.8 SECONDS (9.7-12.2) H 08/09/17 06:45 INR 1.1 08/09/17 06:45 APTT 58 SECONDS (21-34) H D 08/09/17 20:52 Attending/Attestation - Attestation I have personally seen and examined this patient.: Yes I have fully participated in the care of the patient.: Yes I have reviewed all pertinent clinical information, including history, physical exam and plan: Yes Notes (Text): Patient seen, examined and case discussed with day-time resident during rounds this morning. Discussed with cardiology, Dr. Cortés given acute rise in Creatinine to 2.3, cancelled cardiac cath until kidney function is optimized. Discussed with nephrology, Dr Archuleta (Dr. Miranda's group) in light of rise, agreed to stoop ARB and diuretic. Gentle hydration. Patient seen with daughter at bedside with resident and medical student [place] gambian speaker assisting in translation. Per daughter, patient has been having periods of forgetfulness over the past year but appears at baseline per daughter. Patient has never had any formal workup in terms of this forgetfulness. Patient was confused with resident this morning. Patient remembers me at bedside but cannot recall cardiac cath discussion from yesterday but daughter remembers. Will order CT scan head given period of confusion. Patient otherwise reports he feels about the same. Work-up per heme-onc is pending. Patient ordered repeat chest xray today: no apparent change (patient is on gentle IV hydration and is receiving IV abx for pneumonia). Doppler for dvt is negative. Assessment/Plan (1) Chest pain Assessment and Plan: * Cardiology (Dr. Cortés) on board-->help appreciated * All trops WNL * EKG x2 = Sinus tachycardia notes with possible left atrial enlargement; no apparent T segment elevations in contiguous leads * Heparin drip restarted * Patient's cardiac catherization cancelled secondary to rise in creatinine (2.3 ). Patient has hx of abnormal stress test. Discussed with cardiology and nephrology given change in Cr this morning * Echocardiogram (08/08/17): left ventrcile systolic function is severely impaired. EF: 25-30%; global hypokinesis of left ventricle mild aortic regurgitation. Mitral regurgitation is moderate. Moderate-severe pulmonary hypertesnion * hx of ACID * TSH: 1.16 * T4: 1.53 * On Metoprolol 50 mg Po daily, Procardia 90 mg po daily, d/c Cozaar 100 mg po daily secondary to acute rise in Cr. Status: Acute (2) Acute Systolic CHF exacerbation Assessment and Plan: * Monitor on telemetry * d/c Lasix 20 mg IV QD secondary to rise in Cr * Height of bed at 45 degrees, Strict ins and outs, monitor daily weights * Echocardiogram (08/08/17): left ventrcile systolic function is severely impaired. EF: 25-30%; global hypokinesis of left ventricle mild aortic regurgitation. Mitral regurgitation is moderate. Moderate-severe pulmonary hypertension * On Metoprolol 50 mg Po daily, Procardia 90 mg po daily * d/cCozaar 100 mg po daily secondary to acute renal insufficiency * Gentle IV hydration; repeat chest xray is stable Status: Acute (3) Pneumonia Assessment and Plan: * Pulmonary (Dr. Mena) on board-->help appreciated * Rocephin 1 gram IV q daily and azithromycin 500mg IV q daily * Florastor 250mg PO bid * Rapid strep, Influenza A and B studies, Urine Legionella, Mycoplasma studies = Negative * per pulm, Continue IV abx, Culture/sensitivity, CXR, Venous Doppler: negative for DVT Status: Acute (4) CAD (coronary artery disease) Assessment and Plan: * Hx of cardiac stent in the past * Patient will likely benefit from cardiac cath however it is cancelled given acute renal insufficiency; discussed with cardio/nephro * Resumed on Heparin Drip Status: Acute (5) HTN (hypertension) Assessment and Plan: * On Metoprolol, Procardia and d/c Cozaar. (Hold parameters in place) * Cont to monitor Status: Chronic (6) CKD (chronic kidney disease) Assessment and Plan: * Dr. Miranda (nephrology) consulted on the case * Hx of CKD * GFR 45 which appears to be around baseline * Stopped ARB given rise in CR * Stopped Lasix given rise in CR * Patient placed on gentle IV hydration (50 cc/hr) on 08/08/17 and on N- acetylcysteine to reduce contrast induce nephropathy Status: Acute (7) Diabetes mellitus Assessment and Plan: * Accuchecks QAC and Hs * ISS- High Dose * A1c 8.4 * Hold home medications at this time Status: Chronic (8) HLD (hyperlipidemia) Assessment and Plan: * On Crestor 10 mg Po HS * Dietary counseling enforced Status: Chronic (9) Constipation Assessment and Plan: * Colace 100 mg PO TID until 18:00PM on 08/07/17. If patient has not had a stool , will add on Dulcolax. Status: Chronic (10) Anemia Assessment and Plan: * Heme-oncology (Dr. Giles bender) on board-->help appreciated * Likely iron deficiency anemia based on prior admissions * Iron Studies. * Ferritin 27.4, Iron 22, TIBC 322, % Saturation 7 * Monitor Hgb/Hct Status: Chronic (11) History of DVT (deep vein thrombosis) Assessment and Plan: * Patient was previously on Eliquis for a prior history of DVT. * At this time, will not initiate. Will rather re-start heparin drip. * Repeat dopplers are negative for DVT Status: Acute (12) Prophylactic measure Assessment and Plan: * pepcid 20mg PO daily * On Heparin Drip * Cardiac cath cancelled secondary to acute rise in Cr Status: Acute (13) Confusion Assessment and Plan: * Per daughter, patient has been getting bouts of confusion over the past year but appears at baseline. Patient has not seen formal neurology as outpatient per daughter. * Patient ordered for CT head w/o contrast given confusion this morning. Daughter notes he is at baseline Status: Acute
[2017-08-09] MEDS ORDERED: Heparin25000 units/250ml 1/2NS 25,000 UNITS/250 ML BAG IV PRN (14:00)
[2017-08-09] MEDS: Heparin25000 units/250ml 1/2NS 25,000 UNITS/250 ML BAG IV PRN (15:05)
--- NOTE | 2017-08-09 15:26 | VASCLAB ---
PROCEDURE: Lower Extremity Venous Duplex Exam. HISTORY: LE Swelling PRIORS: None. TECHNIQUE: Bilateral common femoral, femoral, popliteal and posterior tibial, peroneal and great saphenous veins were evaluated. Flow was assessed with color Doppler, compressibility, assessment of phasic flow and augmentation response. Report prepared by certified hyperbaric technologist. FINDINGS: RIGHT: 1. Common Femoral Vein: 1.1. Compressibility - Fully compressible: Thrombus - None : Flow - Phasic: Augmentation -Normal: Reflux - None. 2. Femoral Vein: 2.1. Compressibility - Fully compressible: Thrombus - None : Flow - Phasic: Augmentation -Normal: Reflux - None. 3. Popliteal Vein: 3.1. Compressibility - Fully compressible: Thrombus - None : Flow - Phasic: Augmentation -Normal: Reflux - None. 4. Posterior Tibial Vein: 4.1. Compressibility - Fully compressible: Thrombus - None: Flow - Phasic: Augmentation -Normal: Reflux - None. 5. Peroneal Vein: 5.1. Compressibility - Fully compressible: Thrombus - None: Flow - Phasic: Augmentation -Normal: Reflux - None. 6. Great Saphenous Vein: 6.1. Compressibility - Fully compressible: Thrombus - None: Flow - Phasic: Augmentation - Normal: Reflux - None. LEFT: 1. Common Femoral Vein: 1.1. Compressibility - Fully compressible: Thrombus - None: Flow - Phasic: Augmentation -Normal: Reflux - None. 2. Femoral Vein: 2.1. Compressibility - Fully compressible: Thrombus - None: Flow - Phasic: Augmentation -Normal: Reflux - None. 3. Popliteal Vein: 3.1. Compressibility - Fully compressible: Thrombus - None : Flow - Phasic: Augmentation -Normal: Reflux - None. 4. Posterior Tibial Vein: 4.1. Compressibility - Fully compressible: Thrombus - None: Flow - Phasic: Augmentation -Normal: Reflux - None. 5. Peroneal Vein: 5.1. Compressibility - Fully compressible: Thrombus - None: Flow - Phasic: Augmentation -Normal: Reflux - None. 6. Great Saphenous Vein: 6.1. Compressibility - Fully compressible: Thrombus - None: Flow - Phasic: Augmentation - Normal: Reflux - Severe. OTHER FINDINGS: Right: None significant. Left: Severe valvular incompetence of the left greater saphenous vein. IMPRESSION: Right: No evidence of deep or superficial vein thrombosis of the right lower extremity. Normal valve function noted of the right side. Left: No evidence of deep or superficial vein thrombosis of the left lower extremity.
[2017-08-09] MEDS: Sodium Chloride 0.9% 1,000 ML IV SCH (16:45)
--- NOTE | 2017-08-09 16:52 | RAD ---
HISTORY: Eight CHF. Technique: Single view portable semi erect @ 14:02 COMPARISON: No prior. FINDINGS: LUNGS: Stable pulmonary vascular congestion superimposed upon stable left lower lobe infiltrate. PLEURA: Probable left pleural effusion. CARDIOVASCULAR: Cardiomegaly. No evidence of acute, significant cardiovascular disease. Position/ configuration of pacemaker Satisfactory. OSSEOUS STRUCTURES: No significant abnormalities. VISUALIZED UPPER ABDOMEN: Normal. OTHER FINDINGS: None. IMPRESSION: No significant interval change compared to the prior examination(s).
--- NOTE | 2017-08-09 17:34 | CARD ---
APPROVED REPORT EKG Measurement Heart [id number] SD [id number] <Conclusion> Normal sinus rhythm Possible Left atrial enlargement Left axis deviation Nonspecific T wave abnormality Prolonged QT Abnormal ECG
--- NOTE | 2017-08-09 17:36 | CP.PCM.PN ---
Subjective - Date & Time of Evaluation Date of Evaluation: 08/09/17 Time of Evaluation: 11:35 - Subjective Subjective: Patient seen and examined. Lying comfortably in no acute distress Cardiac cath was canceled for elevated troponin Afebrile Echocardiogram noted Denies cough, denies chest pain On heparin drip Objective - Vital Signs/Intake and Output Vital Signs (last 24 hours): Temp Pulse Resp BP Pulse Ox 98 F 83 20 119/66 96 08/09/17 15:00 08/09/17 15:00 08/09/17 15:00 08/09/17 15:00 08/09/17 15:00 Intake and Output: 08/09/17 08/09/17 06:59 18:59 Intake Total 890 540 Output Total 700 Balance 890 -160 - Medications Medications: Current Medications Acetylcysteine (Acetylcysteine 20%) 3 ml PO Q12H [facility] Last Admin: 08/09/17 12:28 Dose: 3 ml Aspirin (Ecotrin) 81 mg PO DAILY [facility] Last Admin: 08/09/17 09:02 Dose: 81 mg Docusate Sodium (Colace) 100 mg PO TID [facility] Last Admin: 08/09/17 13:44 Dose: 100 mg Famotidine (Pepcid) 20 mg PO DAILY [facility] Last Admin: 08/09/17 09:01 Dose: 20 mg Ferric Sodium Gluconate Complex (Ferrlecit) 125 mg IVPB DAILY [facility] Stop: 08/16/17 10:01 Last Admin: 08/09/17 09:08 Dose: 125 mg Furosemide (Lasix) 20 mg IVP DAILY [facility] Last Admin: 08/09/17 09:03 Dose: 20 mg Ceftriaxone Sodium (Rocephin Iv 1 Gm Duplex) 50 mls @ 100 mls/hr IVPB DAILY [facility] Last Admin: 08/09/17 10:59 Dose: 100 mls/hr Azithromycin 500 mg/ Sodium (Chloride) 250 mls @ 167 mls/hr IVPB Q24H [facility] Last Admin: 08/09/17 10:40 Dose: 167 mls/hr Sodium Chloride (Sodium Chloride 0.9%) 1,000 mls @ 50 mls/hr IV .Q20H [facility] Last Admin: 08/08/17 21:37 Dose: 50 mls/hr Heparin Sodium/Sodium Chloride (Heparin 13810 Units/250ml 1/2 Normal Saline) 25 ,000 units in 250 mls @ 11.376 mls/hr IV .[id number] PRN; Protocol; 12 UNITS/KG/HR PRN Reason: PROTOCOL Last Admin: 08/09/17 15:05 Dose: 12 units/kg/hr, 11.376 mls/hr Insulin Aspart (Novolog) 0 unit SC ACHS [facility] FERNANDO PRN Reason: Protocol Last Admin: 08/09/17 12:29 Dose: 6 unit Ipratropium [place] (Atrovent) 0.5 mg IH RQ6 PRN PRN Reason: Shortness of Breath Last Admin: 08/09/17 04:03 Dose: 0.5 mg Metoprolol Succinate (Toprol Xl) 50 mg PO DAILY [facility] Last Admin: 08/09/17 09:02 Dose: 50 mg Nifedipine (Procardia Xl) 90 mg PO DAILY [facility] Last Admin: 08/09/17 10:03 Dose: 90 mg Rosuvastatin Calcium (Crestor) 10 mg PO HS [facility] Last Admin: 08/08/17 21:36 Dose: 10 mg Saccharomyces Boulardii (Florastor) 250 mg PO BID [facility] Last Admin: 08/09/17 09:02 Dose: 250 mg - Labs Labs: 08/09/17 06:45 08/09/17 06:45 PT 12.8 SECONDS (9.7-12.2) H 08/09/17 06:45 INR 1.1 08/09/17 06:45 APTT 36 SECONDS (21-34) H D 08/09/17 06:45 - Head Exam Head Exam: ATRAUMATIC, NORMOCEPHALIC - Eye Exam Eye Exam: Normal appearance - ENT Exam ENT Exam: Mucous Membranes Moist - Neck Exam Neck Exam: Normal Inspection - Respiratory Exam Respiratory Exam: Clear to Ausculation Bilateral - Cardiovascular Exam Cardiovascular Exam: REGULAR RHYTHM - GI/Abdominal Exam GI & Abdominal Exam: Soft, Normal Bowel Sounds - Extremities Exam Extremities Exam: Normal Inspection - Neurological Exam Neurological Exam: Awake Assessment and Plan (1) Pneumonia Assessment & Plan: Continue antibiotics Chest x-ray done today showed no change Cardiac workup Continue heparin drip as per cardiology Status: Acute (2) History of DVT (deep vein thrombosis) Status: Acute (3) CKD (chronic kidney disease) Status: Acute
--- NOTE | 2017-08-09 17:39 | CARD ---
APPROVED REPORT EKG Measurement Heart [id number] [place] [id number] <Conclusion> Sinus tachycardia Possible Left atrial enlargement Left anterior fascicular block Poor R wave progressio Nonspecific ST/ T abnormality Abnormal ECG
[2017-08-09 23:28] LABS: INR 1.2
[2017-08-10] MEDS: Ipratropium 0.02% Inhal Soln (0.5 mg/2.5 ml) UD IH PRN (01:37)
--- NOTE | 2017-08-10 05:58 | CP.PCM.PN ---
Subjective - Date & Time of Evaluation Date of Evaluation: 08/08/17 Time of Evaluation: 19:25 - Subjective Subjective: Patient seen and evaluated Chest pain and dyspnea Abnormal stress test For cath tomorrow Objective - Vital Signs/Intake and Output Vital Signs (last 24 hours): Temp Pulse Resp BP Pulse Ox 97.9 F 112 H 20 151/65 H 97 08/09/17 23:05 08/10/17 05:16 08/09/17 23:05 08/09/17 23:05 08/09/17 23:05 Intake and Output: 08/09/17 08/10/17 18:59 06:59 Intake Total 540 760 Output Total 700 Balance -160 760 - Medications Medications: Current Medications Acetylcysteine (Acetylcysteine 20%) 3 ml PO Q12H [facility] Last Admin: 08/09/17 23:58 Dose: 3 ml Aspirin (Ecotrin) 81 mg PO DAILY [facility] Last Admin: 08/09/17 09:02 Dose: 81 mg Docusate Sodium (Colace) 100 mg PO TID [facility] Last Admin: 08/09/17 18:38 Dose: 100 mg Famotidine (Pepcid) 20 mg PO DAILY [facility] Last Admin: 08/09/17 09:01 Dose: 20 mg Ferric Sodium Gluconate Complex (Ferrlecit) 125 mg IVPB DAILY [facility] Stop: 08/16/17 10:01 Last Admin: 08/09/17 09:08 Dose: 125 mg Furosemide (Lasix) 20 mg IVP DAILY [facility] Last Admin: 08/09/17 09:03 Dose: 20 mg Ceftriaxone Sodium (Rocephin Iv 1 Gm Duplex) 50 mls @ 100 mls/hr IVPB DAILY [facility] Last Admin: 08/09/17 10:59 Dose: 100 mls/hr Azithromycin 500 mg/ Sodium (Chloride) 250 mls @ 167 mls/hr IVPB Q24H [facility] Last Admin: 08/09/17 10:40 Dose: 167 mls/hr Sodium Chloride (Sodium Chloride 0.9%) 1,000 mls @ 50 mls/hr IV .Q20H [facility] Last Admin: 08/09/17 16:45 Dose: Not Given Heparin Sodium/Sodium Chloride (Heparin 55638 Units/250ml 1/2 Normal Saline) 25 ,000 units in 250 mls @ 11.376 mls/hr IV .[id number] PRN; Protocol; 12 UNITS/KG/HR PRN Reason: PROTOCOL Last Admin: 08/09/17 15:05 Dose: 12 units/kg/hr, 11.376 mls/hr Insulin Aspart (Novolog) 0 unit SC ACHS [facility] PRN Reason: Protocol Last Admin: 08/09/17 22:52 Dose: Not Given Ipratropium Geff (Atrovent) 0.5 mg IH RQ6 PRN PRN Reason: Shortness of Breath Last Admin: 08/10/17 01:37 Dose: 0.5 mg Metoprolol Succinate (Toprol Xl) 50 mg PO DAILY [facility] Last Admin: 08/09/17 09:02 Dose: 50 mg Nifedipine (Procardia Xl) 90 mg PO DAILY [facility] Last Admin: 08/09/17 10:03 Dose: 90 mg Rosuvastatin Calcium (Crestor) 10 mg PO HS [facility] Last Admin: 08/09/17 22:50 Dose: 10 mg Saccharomyces Boulardii (Florastor) 250 mg PO BID [facility] Last Admin: 08/09/17 18:38 Dose: 250 mg - Labs Labs: 08/09/17 06:45 08/09/17 06:45 PT 13.0 SECONDS (9.7-12.2) H 08/09/17 23:23 INR 1.2 08/09/17 23:23 APTT 58 SECONDS (21-34) H D 08/09/17 20:52 - Head Exam Head Exam: ATRAUMATIC, NORMAL INSPECTION - Eye Exam Eye Exam: EOMI, PERRL Pupil Exam: NORMAL ACCOMODATION - ENT Exam ENT Exam: Mucous Membranes Moist - Neck Exam Neck Exam: Full ROM, Normal Inspection - Respiratory Exam Respiratory Exam: Clear to Ausculation Bilateral, NORMAL BREATHING PATTERN - Cardiovascular Exam Cardiovascular Exam: REGULAR RHYTHM, +S1, +S2 - GI/Abdominal Exam GI & Abdominal Exam: Soft, Normal Bowel Sounds - Extremities Exam Extremities Exam: Full ROM - Back Exam Back Exam: NORMAL INSPECTION - Neurological Exam Neurological Exam: Alert, Oriented x3 - Psychiatric Exam Psychiatric exam: Normal Mood - Skin Skin Exam: Warm Assessment and Plan - Assessment and Plan (Free Text) Assessment: 1. Chest pain and dyspnea 2. CAD 3. Chronic systolic CHF 4. CKD For cath tomorrow
--- NOTE | 2017-08-10 06:01 | CP.PCM.PN ---
Subjective - Date & Time of Evaluation Date of Evaluation: 08/09/17 Time of Evaluation: 13:20 - Subjective Subjective: Patient seen and evaluated No chest pain and dyspnea cath cancelled due to rising Creatinine renal evaluation in progress Objective - Vital Signs/Intake and Output Vital Signs (last 24 hours): Temp Pulse Resp BP Pulse Ox 97.9 F 112 H 20 151/65 H 97 08/09/17 23:05 08/10/17 05:16 08/09/17 23:05 08/09/17 23:05 08/09/17 23:05 Intake and Output: 08/09/17 08/10/17 18:59 06:59 Intake Total 540 760 Output Total 700 Balance -160 760 - Medications Medications: Current Medications Acetylcysteine (Acetylcysteine 20%) 3 ml PO Q12H [facility] Last Admin: 08/09/17 23:58 Dose: 3 ml Aspirin (Ecotrin) 81 mg PO DAILY [facility] Last Admin: 08/09/17 09:02 Dose: 81 mg Docusate Sodium (Colace) 100 mg PO TID [facility] Last Admin: 08/09/17 18:38 Dose: 100 mg Famotidine (Pepcid) 20 mg PO DAILY [facility] Last Admin: 08/09/17 09:01 Dose: 20 mg Ferric Sodium Gluconate Complex (Ferrlecit) 125 mg IVPB DAILY [facility] Stop: 08/16/17 10:01 Last Admin: 08/09/17 09:08 Dose: 125 mg Furosemide (Lasix) 20 mg IVP DAILY [facility] Last Admin: 08/09/17 09:03 Dose: 20 mg Ceftriaxone Sodium (Rocephin Iv 1 Gm Duplex) 50 mls @ 100 mls/hr IVPB DAILY [facility] Last Admin: 08/09/17 10:59 Dose: 100 mls/hr Azithromycin 500 mg/ Sodium (Chloride) 250 mls @ 167 mls/hr IVPB Q24H [facility] Last Admin: 08/09/17 10:40 Dose: 167 mls/hr Sodium Chloride (Sodium Chloride 0.9%) 1,000 mls @ 50 mls/hr IV .Q20H [facility] Last Admin: 08/09/17 16:45 Dose: Not Given Heparin Sodium/Sodium Chloride (Heparin 61755 Units/250ml 1/2 Normal Saline) 25 ,000 units in 250 mls @ 11.376 mls/hr IV .[id number] PRN; Protocol; 12 UNITS/KG/HR PRN Reason: PROTOCOL Last Admin: 08/09/17 15:05 Dose: 12 units/kg/hr, 11.376 mls/hr Insulin Aspart (Novolog) 0 unit SC ACHS [facility] PRN Reason: Protocol Last Admin: 08/09/17 22:52 Dose: Not Given Ipratropium Orlando (Atrovent) 0.5 mg IH RQ6 PRN PRN Reason: Shortness of Breath Last Admin: 08/10/17 01:37 Dose: 0.5 mg Metoprolol Succinate (Toprol Xl) 50 mg PO DAILY [facility] Last Admin: 08/09/17 09:02 Dose: 50 mg Nifedipine (Procardia Xl) 90 mg PO DAILY [facility] Last Admin: 08/09/17 10:03 Dose: 90 mg Rosuvastatin Calcium (Crestor) 10 mg PO HS [facility] Last Admin: 08/09/17 22:50 Dose: 10 mg Saccharomyces Boulardii (Florastor) 250 mg PO BID [facility] Last Admin: 08/09/17 18:38 Dose: 250 mg - Labs Labs: 08/09/17 06:45 08/09/17 06:45 PT 13.0 SECONDS (9.7-12.2) H 08/09/17 23:23 INR 1.2 08/09/17 23:23 APTT 58 SECONDS (21-34) H D 08/09/17 20:52 - Head Exam Head Exam: ATRAUMATIC, NORMAL INSPECTION - Eye Exam Eye Exam: EOMI, PERRL Pupil Exam: NORMAL ACCOMODATION - ENT Exam ENT Exam: Mucous Membranes Moist - Neck Exam Neck Exam: Full ROM, Normal Inspection - Respiratory Exam Respiratory Exam: Clear to Ausculation Bilateral, NORMAL BREATHING PATTERN - Cardiovascular Exam Cardiovascular Exam: REGULAR RHYTHM, +S1, +S2 - GI/Abdominal Exam GI & Abdominal Exam: Soft, Normal Bowel Sounds - Extremities Exam Extremities Exam: Full ROM - Neurological Exam Neurological Exam: Alert, Awake, Oriented x3 - Psychiatric Exam Psychiatric exam: Normal Mood - Skin Skin Exam: Warm Assessment and Plan - Assessment and Plan (Free Text) Assessment: 1. CKD with rising creatnine cath postponed 2. HTN 3. CAd 4. Chronic systolic CHF s/p AICD
[2017-08-10] MEDS: Sodium Chloride 0.9% 1,000 ML IV SCH (06:15)
--- NOTE | 2017-08-10 07:00 | CP.PCM.PN ---
<Sina White - Last Filed: 08/10/17 13:32> Subjective - Date & Time of Evaluation Date of Evaluation: 08/10/17 Time of Evaluation: 06:58 - Subjective Subjective: PGY1 Note for Dr. Lazar HPI: Patient seen and examined at bedside. States he still has SOB and chest pain that is not getting better. When asked if anything else is bothering him he states "I have what i have". No other complaints at this time. Sitting up in bed watching TV. Looks comfortable. Objective - Vital Signs/Intake and Output Vital Signs (last 24 hours): Temp Pulse Resp BP Pulse Ox 97.9 F 112 H 20 151/65 H 97 08/09/17 23:05 08/10/17 05:16 08/09/17 23:05 08/09/17 23:05 08/09/17 23:05 Intake and Output: 08/09/17 08/10/17 18:59 06:59 Intake Total 540 760 Output Total 700 Balance -160 760 - Medications Medications: Current Medications Acetylcysteine (Acetylcysteine 20%) 3 ml PO Q12H [facility] Last Admin: 08/09/17 23:58 Dose: 3 ml Aspirin (Ecotrin) 81 mg PO DAILY [facility] Last Admin: 08/09/17 09:02 Dose: 81 mg Docusate Sodium (Colace) 100 mg PO TID [facility] Last Admin: 08/09/17 18:38 Dose: 100 mg Famotidine (Pepcid) 20 mg PO DAILY [facility] Last Admin: 08/09/17 09:01 Dose: 20 mg Ferric Sodium Gluconate Complex (Ferrlecit) 125 mg IVPB DAILY [facility] Stop: 08/16/17 10:01 Last Admin: 08/09/17 09:08 Dose: 125 mg Furosemide (Lasix) 20 mg IVP DAILY [facility] Last Admin: 08/09/17 09:03 Dose: 20 mg Ceftriaxone Sodium (Rocephin Iv 1 Gm Duplex) 50 mls @ 100 mls/hr IVPB DAILY [facility] Last Admin: 08/09/17 10:59 Dose: 100 mls/hr Azithromycin 500 mg/ Sodium (Chloride) 250 mls @ 167 mls/hr IVPB Q24H [facility] Last Admin: 08/09/17 10:40 Dose: 167 mls/hr Sodium Chloride (Sodium Chloride 0.9%) 1,000 mls @ 50 mls/hr IV .Q20H [facility] Last Admin: 08/10/17 06:15 Dose: 50 mls/hr Heparin Sodium/Sodium Chloride (Heparin 28926 Units/250ml 1/2 Normal Saline) 25 ,000 units in 250 mls @ 11.376 mls/hr IV .[id number] PRN; Protocol; 12 UNITS/KG/HR PRN Reason: PROTOCOL Last Admin: 08/09/17 15:05 Dose: 12 units/kg/hr, 11.376 mls/hr Insulin Aspart (Novolog) 0 unit SC ACHS [facility] PRN Reason: Protocol Last Admin: 08/09/17 22:52 Dose: Not Given Ipratropium Josephine (Atrovent) 0.5 mg IH RQ6 PRN PRN Reason: Shortness of Breath Last Admin: 08/10/17 01:37 Dose: 0.5 mg Metoprolol Succinate (Toprol Xl) 50 mg PO DAILY [facility] Last Admin: 08/09/17 09:02 Dose: 50 mg Nifedipine (Procardia Xl) 90 mg PO DAILY [facility] Last Admin: 08/09/17 10:03 Dose: 90 mg Rosuvastatin Calcium (Crestor) 10 mg PO HS [facility] Last Admin: 08/09/17 22:50 Dose: 10 mg Saccharomyces Boulardii (Florastor) 250 mg PO BID [facility] Last Admin: 08/09/17 18:38 Dose: 250 mg - Labs Labs: 08/09/17 06:45 08/09/17 06:45 PT 13.0 SECONDS (9.7-12.2) H 08/09/17 23:23 INR 1.2 08/09/17 23:23 APTT 58 SECONDS (21-34) H D 08/09/17 20:52 - Constitutional Appears: Well, Non-toxic, No Acute Distress - Head Exam Head Exam: ATRAUMATIC, NORMAL INSPECTION, NORMOCEPHALIC - Eye Exam Eye Exam: EOMI Pupil Exam: NORMAL ACCOMODATION - ENT Exam ENT Exam: Mucous Membranes Moist - Respiratory Exam Respiratory Exam: Decreased Breath Sounds, Rales (bilateral LL). absent: NORMAL BREATHING PATTERN Additional comments: decreased respiratory effort - Cardiovascular Exam Cardiovascular Exam: REGULAR RHYTHM. absent: Gallop, Rubs, Murmur - GI/Abdominal Exam GI & Abdominal Exam: Soft, Normal Bowel Sounds. absent: Distended, Tenderness - Extremities Exam Extremities Exam: absent: Joint Swelling, Tenderness - Neurological Exam Neurological Exam: Alert, Awake, Oriented x3 - Psychiatric Exam Psychiatric exam: Normal Affect, Normal Mood - Skin Skin Exam: Dry, Intact, Normal Color, Warm Assessment and Plan - Assessment and Plan (Free Text) Assessment: (1) Chest pain Assessment and Plan: All trops WNL EKG x2 = Sinus tachycardia notes with possible left atrial enlargement; no apparent T segment elevations in contiguous leads Cards (Moo) reccs * Cath cancelled due to rise in Cr TSH: 1.16 T4: 1.53 On Metoprolol 50 mg Po daily, Procardia 90 mg po daily, Cozaar 100 mg po daily ( held for Cr rise) Status: Acute (2) CHF exacerbation Assessment and Plan: Monitor on telemetry Lasix 20 mg IV QD, decreased due to rising Cr - on hold because of continues rise in Cr Height of bed at 45 degrees, Strict ins and outs, monitor daily weights Echo - 25% systolic failure Patient to continue blood pressure control as noted above F/U repeat CXR Status: Chronic (3) Pneumonia Assessment and Plan: Will begin Rocephin and Azithromycin Q24 Start Florastor as well Rapid strep, Influenza A and B studies, Urine Legionella, Mycoplasma studies = Negative Dr. Mena (Pul) * Continue IV abx, Culture/sensitivity, CXR, Venous Doppler Status: Acute (4) CAD (coronary artery disease) Assessment and Plan: Hx of cardiac stent in the past Cardio (Moo) Patient will likely benefit from cath Currently on Heparin Drip Status: Acute (5) HTN (hypertension) Assessment and Plan: On Metoprolol, Procardia and Cozaar (held). (Hold parameters in place) Cont to monitor Status: Chronic (6) CKD (chronic kidney disease) Assessment and Plan: Hx of CKD GFR 45 which appears to be around baseline Dr. Miranda recommendations * Stop ARB and diuretics, gentle hydration Status: Acute (7) Diabetes mellitus Assessment and Plan: Accuchecks ISS- High Dose A1c 8.4 Hold home medications at this time Status: Chronic (8) HLD (hyperlipidemia) Assessment and Plan: On Crestor 10 mg Po HS Dietary counseling enforced Status: Chronic (9) Constipation Assessment and Plan: Colace 100 mg PO TID until 18:00PM on 08/07/17. If patient has not had a stool, will add on Dulcolax. Status: Chronic (10) Anemia Assessment and Plan: Likely iron deficiency anemia based on prior admissions Iron Studies. Ferritin 27.4, Iron 22, TIBC 322, % Saturation 7 Monitor Hgb/Hct Status: Chronic (11) History of DVT (deep vein thrombosis) Assessment and Plan: Patient was previously on Eliquis for a prior history of DVT. At this time, will not initiate. Will rather start heparin drip in anticipation for cath procedure. Status: Acute (12) Prophylactic measure Assessment and Plan: Protonix 40 mg PO daily On Heparin Drip in anticipation for cardiac cath- Will f/u with Dr. Cortés as to when to hold Status: Acute <Mariangel Lazar V - Last Filed: 08/11/17 00:09> Objective - Vital Signs/Intake and Output Vital Signs (last 24 hours): Temp Pulse Resp BP Pulse Ox 98.2 F 78 18 88/41 L 98 08/10/17 20:00 08/10/17 23:18 08/10/17 23:18 08/10/17 23:18 08/10/17 23:18 Intake and Output: 08/10/17 08/11/17 18:59 06:59 Intake Total 336.5 85.1 Output Total 110 80 Balance 226.5 5.1 - Medications Medications: Current Medications Acetylcysteine (Acetylcysteine 20%) 3 ml PO Q12H [facility] Last Admin: 08/10/17 17:33 Dose: Not Given Aspirin (Ecotrin) 81 mg PO DAILY [facility] Last Admin: 08/10/17 10:27 Dose: 81 mg Docusate Sodium (Colace) 100 mg PO TID [facility] Last Admin: 08/10/17 17:32 Dose: 100 mg Famotidine (Pepcid) 20 mg PO DAILY [facility] Last Admin: 08/10/17 10:25 Dose: 20 mg Ferric Sodium Gluconate Complex (Ferrlecit) 125 mg IVPB DAILY [facility] Stop: 08/16/17 10:01 Last Admin: 08/10/17 10:26 Dose: 125 mg Furosemide (Lasix) 20 mg IVP DAILY [facility] Last Admin: 08/09/17 09:03 Dose: 20 mg Ceftriaxone Sodium (Rocephin Iv 1 Gm Duplex) 50 mls @ 100 mls/hr IVPB DAILY [facility] Last Admin: 08/10/17 10:30 Dose: 100 mls/hr Azithromycin 500 mg/ Sodium (Chloride) 250 mls @ 167 mls/hr IVPB Q24H [facility] Last Admin: 08/10/17 10:28 Dose: 167 mls/hr Heparin Sodium/Sodium Chloride (Heparin 30401 Units/250ml 1/2 Normal Saline) 25 ,000 units in 250 mls @ 11.376 mls/hr IV .[id number] PRN; Protocol; 12 UNITS/KG/HR PRN Reason: PROTOCOL Last Admin: 08/10/17 14:00 Dose: 16.66 units/kg/hr, 15.794 mls/hr Nitroglycerin/Dextrose (Nitroglycerin 50 Mg/250 Ml D5w) 50 mg in 250 mls @ 7.5 mls/hr IV .Q24H [facility]; 25 MCG/MIN PRN Reason: Protocol Last Titration: 08/10/17 23:38 Dose: 0 mcg/min, 0 mls/hr Insulin Aspart (Novolog) 0 unit SC Q6H [facility] PRN Reason: Protocol Ipratropium Josephine (Atrovent) 0.5 mg IH RQ6 PRN PRN Reason: Shortness of Breath Last Admin: 08/10/17 01:37 Dose: 0.5 mg Lorazepam (Ativan) 1 mg IVP Q2H PRN PRN Reason: Agitation Last Admin: 08/10/17 21:00 Dose: 1 mg Metoprolol Succinate (Toprol Xl) 50 mg PO DAILY [facility] Last Admin: 08/10/17 10:27 Dose: 50 mg Nifedipine (Procardia Xl) 90 mg PO DAILY [facility] Last Admin: 08/10/17 10:27 Dose: 90 mg Rosuvastatin Calcium (Crestor) 10 mg PO HS [facility] Last Admin: 08/10/17 22:15 Dose: 10 mg Saccharomyces Boulardii (Florastor) 250 mg PO BID [facility] Last Admin: 08/10/17 19:00 Dose: 250 mg - Labs Labs: 08/10/17 13:50 08/10/17 21:14 PT 13.0 SECONDS (9.7-12.2) H 08/09/17 23:23 INR 1.2 08/09/17 23:23 APTT 65 SECONDS (21-34) H D 08/10/17 21:14 Attending/Attestation - Attestation I have personally seen and examined this patient.: Yes I have fully participated in the care of the patient.: Yes I have reviewed all pertinent clinical information, including history, physical exam and plan: Yes Notes (Text): Patient seen, examined and case discussed with day-time resident. Patient seen this morning with increased shortness of breathe. Ordered for portable chest xray. Later, I responded to code blue with mc servin team; patient outside radiology suite, patient complete CT head. Patient in asystole, cardiopulmonary resuscitative measures initiated, requiring 3 epis, bicarbonate, and intubated and brought to the ICU for further management IV fluids d/c. Azithromycin held SE prolong QT. Repeat chest xray supporting pulmonary edema. Further management per ICU. Patient's pulm is the ICU today. Cardiology informed regarding acute events today. Discussed with patient's PMD: Dr. Pickard as well. Time total >30 Min (1) Cardiac Arrest Nonstemi Assessment and Plan: * Code Blue on 08/10: asystole, cardiopulmonary resuscitative measures initiated , requiring 3 epis, bicarbonate, ROSC achieved and intubated and brought to the ICU for further management * Central line placed by ICU; placed on tridil drip; heparin drip c/w * Given dose of Lasix to relieve pulmonary edema (2) Pulmonary Edema Assessment and Plan: * Repeat chest xray * IV fluids d/c * Lasix 40mg IV once given * Further management per ICU/pulm (3) Chest pain Assessment and Plan: * Cardiology (Dr. Cortés) on board-->help appreciated * All trops WNL * EKG x2 = Sinus tachycardia notes with possible left atrial enlargement; no apparent T segment elevations in contiguous leads * Heparin drip restarted * Patient's cardiac catherization cancelled secondary to rise in creatinine (2.3 ) on 08/09/17. * Patient has hx of abnormal stress test. Discussed with cardiology and nephrology given change in Cr on 08/09. * Echocardiogram (08/08/17): left ventrcile systolic function is severely impaired. EF: 25-30%; global hypokinesis of left ventricle mild aortic regurgitation. Mitral regurgitation is moderate. Moderate-severe pulmonary hypertesnion * hx of ACID * TSH: 1.16 * T4: 1.53 * On Metoprolol 50 mg Po daily, Procardia 90 mg po daily, d/c Cozaar 100 mg po daily secondary to acute rise in Cr. * Pending possible cath Status: Acute (4) Acute Systolic CHF exacerbation Assessment and Plan: * Monitor on telemetry * d/c Lasix 20 mg IV QD secondary to rise in Cr * Height of bed at 45 degrees, Strict ins and outs, monitor daily weights * Echocardiogram (08/08/17): left ventrcile systolic function is severely impaired. EF: 25-30%; global hypokinesis of left ventricle mild aortic regurgitation. Mitral regurgitation is moderate. Moderate-severe pulmonary hypertension * On Metoprolol 50 mg Po daily, Procardia 90 mg po daily * d/c Cozaar 100 mg po daily secondary to acute renal insufficiency * IV hydration d/c; repeat xray supporting pulmonary edema; given dose of Lasix 40mg IVX1 Status: Acute (5) Pneumonia Assessment and Plan: * Pulmonary (Dr. Mena) on board-->help appreciated * Rocephin 1 gram IV q daily and d/c azithromycin 500mg IV q daily SE prolong QT * Florastor 250mg PO bid * Rapid strep, Influenza A and B studies, Urine Legionella, Mycoplasma studies = Negative * per pulm, Continue IV abx, Culture/sensitivity, CXR, Venous Doppler: negative for DVT Status: Acute (6) CAD (coronary artery disease) Assessment and Plan: * Hx of cardiac stent in the past * Patient will likely benefit from cardiac cath however it is cancelled given acute renal insufficiency; discussed with cardio/nephro * Resumed on Heparin Drip Status: Acute (7) HTN (hypertension) Assessment and Plan: * Off Metoprolol, Procardia and d/c Cozaar. (Hold parameters in place) following code blue-->placed on tridil drip * Cont to monitor Status: Chronic (8) CKD (chronic kidney disease) Assessment and Plan: * Dr. Miranda (nephrology) consulted on the case * Hx of CKD * GFR 45 which appears to be around baseline * Stopped ARB given rise in CR * Stopped Lasix given rise in CR * Patient placed on gentle IV hydration (50 cc/hr) on 08/08/17 and on N- acetylcysteine to reduce contrast induce nephropathy * d/c IV hydration given pulmonary edema; will need to monitor Cr Status: Acute (9) Diabetes mellitus Assessment and Plan: * Accuchecks QAC and Hs * ISS- High Dose * A1c 8.4 * Hold home medications at this time Status: Chronic (10) HLD (hyperlipidemia) Assessment and Plan: * On Crestor 10 mg Po HS * Dietary counseling enforced Status: Chronic (11) Constipation Assessment and Plan: * Colace 100 mg PO TID until 18:00PM on 08/07/17. If patient has not had a stool , will add on Dulcolax. Status: Chronic (12) Anemia Assessment and Plan: * Heme-oncology (Dr. Giles bender) on board-->help appreciated * Likely iron deficiency anemia based on prior admissions * Iron Studies. * Ferritin 27.4, Iron 22, TIBC 322, % Saturation 7 * Monitor Hgb/Hct Status: Chronic (13) History of DVT (deep vein thrombosis) Assessment and Plan: * Patient was previously on Eliquis for a prior history of DVT. * At this time, will not initiate. Will rather re-start heparin drip. * Repeat dopplers are negative for DVT Status: Acute (14) Prophylactic measure Assessment and Plan: * pepcid 20mg PO daily * On Heparin Drip * Cardiac cath cancelled on 08/09/17 secondary to acute rise in Cr * Transferred to ICU s/p code blue and respiratory failure Status: Acute (15) Confusion; Alzheimer's Dementia Assessment and Plan: * Per daughter, patient has been getting bouts of confusion over the past year but appears at baseline. Patient has not seen formal neurology as outpatient per daughter. Per , prior to event, noted Alzheimers' disease dx one year ago * Patient ordered for CT head w/o contrast official report available. Status: Acute
[2017-08-10 07:08] LABS: BETA 1 GLOBULIN 0.5 g/dL (0.4-0.6); BETA 2 GLOBULIN 0.5 g/dL (0.2-0.5); GAMMA GLOBULIN 1.5 g/dL (0.8-1.7)
[2017-08-10 07:38] LABS: BASO % 0.3 % (0.0-2.0); EOS % 0.1 % (0.0-4.0); HEMATOCRIT 31.9 % (35.0-51.0); LYMPH # 0.8 K/uL (1.0-4.3); LYMPH % 5.2 % (20.0-40.0); MEAN CELL VOLUME 72.2 fL (80.0-94.0); MEAN CORPUSCULAR HEMOGLOBIN 22.6 pg (27.0-31.0); MEAN CORPUSCULAR HGB CONC 31.3 g/dL (33.0-37.0); MEAN PLATELET VOLUME 9.1 fL (7.2-11.7); MONO # 0.6 K/uL (0.0-0.8); MONO % 4.1 % (0.0-10.0); PLATELET COUNT 406 K/uL (130-400); WHITE BLOOD COUNT 15.7 K/uL (4.8-10.8)
[2017-08-10] MEDS: (Novolog) Insulin Aspart, Recombinant 100 u/ml 10 ml vial SC SCH ×4 (08:15→22:16)
[2017-08-10 08:23] LABS: POTASSIUM 3.9 mmol/L (3.6-5.2)
[2017-08-10 08:25] LABS: ALB/GLOB RATIO 1.1 (1.0-2.1); BILIRUBIN,TOTAL 0.7 mg/dL (0.2-1.3); CALCIUM 8.6 mg/dl (8.6-10.4); TOTAL PROTEIN 7.3 g/dL (6.3-8.3)
[2017-08-10 09:11] LABS: NEUTROPHIL 91 % (50-75); TOTAL CELLS COUNTED 100
[2017-08-10 09:12] LABS: LARGE PLATELETS PRESENT
[2017-08-10] MEDS: Ferric Sodium Gluconat Complex 62.5 mg/5 ml Vial IVPB SCH (10:26)
[2017-08-10] MEDS: Saccharomyces Boulardi 250 mg Cap PO SCH ×2 (10:27→19:00)
[2017-08-10] MEDS: NIFEdipine 90 mg ER Tab PO SCH (10:27)
[2017-08-10] MEDS: Metoprolol Succinate 50 mg XL Tab PO SCH (10:27)
[2017-08-10] MEDS: Azithromycin 500 MG in Sodium Chloride 0.9% 250 ML IVPB SCH (10:28)
[2017-08-10] MEDS: cefTRIAXone IV 1 gm in Dextros 50 ML IVPB SCH (10:30)
--- NOTE | 2017-08-10 12:42 | CT ---
PROCEDURE: CT HEAD WITHOUT CONTRAST. HISTORY: confusion COMPARISON: None available. TECHNIQUE: Axial computed tomography images were obtained through the head/brain without intravenous contrast. Radiation dose: Total exam DLP = 1213 mGy-cm. This CT exam was performed using one or more of the following dose reduction techniques: Automated exposure control, adjustment of the mA and/or kV according to patient size, and/or use of iterative reconstruction technique. FINDINGS: HEMORRHAGE: No intracranial hemorrhage. BRAIN: There is a small lucency at the low inferior left basal ganglia which may reflect an acute subacute lacune or infarction however there is no CT evidence to suggest a lobar brain infarction bilaterally including posterior fossa contents. There is no mass effect or cortical lucency appreciated and there is no extra-axial collection appreciated. Midline brain anatomy appears unremarkable including corpus callosum and craniocervical junction. Chronic lacune is seen the upper portion of the right basal ganglia laterally. VENTRICLES: Unremarkable. No hydrocephalus. CALVARIUM: Unremarkable. PARANASAL SINUSES: Mucosal inflammatory changes affect the bilateral mastoid sinuses which may be chronic as associated partial calcification is noted. MASTOID AIR CELLS: Unremarkable as visualized. No inflammatory changes. OTHER FINDINGS: None. IMPRESSION: 1. An acute or subacute lacune infarct is not excluded the left basal ganglia inferiorly with a more definitive chronic lacune identified in the right basal ganglia superiorly. No acute or subacute lobar brain infarction is appreciable by standard CT criteria. MRI may be useful for follow-up as clinically warranted. 2. Mild age-related neuro degenerative changes are identified. 3. No acute intracranial hemorrhage or mass is identified throughout.
[2017-08-10] MEDS: Nitroglycerin 50mg in D5W 50 MG/250 ML BOTTLE IV SCH (13:30)
[2017-08-10 13:34] LABS: ABG MECHANICAL RATE 22; ARTERIAL BLOOD GAS MODE A/C; ATERIAL BLOOD GAS PEEP 5; DRAW SITE RF
[2017-08-10] MEDS ORDERED: Sodium Bicarbonate (8.4%) 50 Meq Syringe IVP ONE ×2 (13:38→13:39)
--- NOTE | 2017-08-10 13:43 | CP.PCM.PN ---
Subjective - Date & Time of Evaluation Date of Evaluation: 08/10/17 Time of Evaluation: 12:59 - Subjective Subjective: House Doctor Note Patient heading for CT scan when he started having trouble breathing and then stopped breathing and was non responsive. Rapid Response called at 12:58 and then Code Blue called at 12:59 with the patient in the hallway on a stretcher. Compressions started immediately. Patient intubated in the field. 3 doses of epinephrine given and a pulse was felt. Patient transferred to ICU. Triple lumen femoral catheter placed in ICU. Objective - Vital Signs/Intake and Output Vital Signs (last 24 hours): Temp Pulse Resp BP Pulse Ox 98.1 F 108 H 20 135/70 98 08/10/17 08:08 08/10/17 08:08 08/10/17 08:08 08/10/17 08:08 08/10/17 08:08 Intake and Output: 08/10/17 08/10/17 06:59 18:59 Intake Total 760 Balance 760 - Medications Medications: Current Medications Acetylcysteine (Acetylcysteine 20%) 3 ml PO Q12H [facility] Last Admin: 08/09/17 23:58 Dose: 3 ml Aspirin (Ecotrin) 81 mg PO DAILY [facility] Last Admin: 08/10/17 10:27 Dose: 81 mg Docusate Sodium (Colace) 100 mg PO TID [facility] Last Admin: 08/10/17 10:27 Dose: 100 mg Famotidine (Pepcid) 20 mg PO DAILY [facility] Last Admin: 08/10/17 10:25 Dose: 20 mg Ferric Sodium Gluconate Complex (Ferrlecit) 125 mg IVPB DAILY [facility] Stop: 08/16/17 10:01 Last Admin: 08/10/17 10:26 Dose: 125 mg Furosemide (Lasix) 20 mg IVP DAILY [facility] Last Admin: 08/09/17 09:03 Dose: 20 mg Ceftriaxone Sodium (Rocephin Iv 1 Gm Duplex) 50 mls @ 100 mls/hr IVPB DAILY [facility] Last Admin: 08/10/17 10:30 Dose: 100 mls/hr Azithromycin 500 mg/ Sodium (Chloride) 250 mls @ 167 mls/hr IVPB Q24H [facility] Last Admin: 08/10/17 10:28 Dose: 167 mls/hr Heparin Sodium/Sodium Chloride (Heparin 87177 Units/250ml 1/2 Normal Saline) 25 ,000 units in 250 mls @ 11.376 mls/hr IV .[id number] PRN; Protocol; 12 UNITS/KG/HR PRN Reason: PROTOCOL Last Admin: 08/09/17 15:05 Dose: 12 units/kg/hr, 11.376 mls/hr Insulin Aspart (Novolog) 0 unit SC ACHS [facility]NANDO PRN Reason: Protocol Last Admin: 08/10/17 12:04 Dose: Not Given Ipratropium Watkins (Atrovent) 0.5 mg IH RQ6 PRN PRN Reason: Shortness of Breath Last Admin: 08/10/17 01:37 Dose: 0.5 mg Metoprolol Succinate (Toprol Xl) 50 mg PO DAILY [facility] Last Admin: 08/10/17 10:27 Dose: 50 mg Nifedipine (Procardia Xl) 90 mg PO DAILY [facility] Last Admin: 08/10/17 10:27 Dose: 90 mg Rosuvastatin Calcium (Crestor) 10 mg PO HS [facility] Last Admin: 08/09/17 22:50 Dose: 10 mg Saccharomyces Boulardii (Florastor) 250 mg PO BID [facility] Last Admin: 08/10/17 10:27 Dose: 250 mg - Labs Labs: 08/10/17 07:26 08/10/17 07:26 PT 13.0 SECONDS (9.7-12.2) H 08/09/17 23:23 INR 1.2 08/09/17 23:23 APTT 75 SECONDS (21-34) H D 08/10/17 07:26
[2017-08-10 13:53] LABS: EOS # 0.1 K/uL (0.0-0.7); EOS % 0.6 % (0.0-4.0); RED CELL DISTRIBUTION WIDTH 20.8 % (11.5-14.5)
[2017-08-10] MEDS: Heparin25000 units/250ml 1/2NS 25,000 UNITS/250 ML BAG IV PRN (14:00)
[2017-08-10 14:07] LABS: ALB/GLOB RATIO 1.1 (1.0-2.1); BILIRUBIN,TOTAL 0.7 mg/dL (0.2-1.3); CALCIUM 9.5 mg/dl (8.6-10.4); POTASSIUM 3.6 mmol/L (3.6-5.2); TOTAL PROTEIN 6.3 g/dL (6.3-8.3)
[2017-08-10 14:17] LABS: BASO # 0.2 K/uL (0.0-0.2); HEMATOCRIT 32.2 % (35.0-51.0); LYMPH # 2.9 K/uL (1.0-4.3); LYMPH % 13.7 % (20.0-40.0); MEAN CORPUSCULAR HEMOGLOBIN 22.1 pg (27.0-31.0); MEAN CORPUSCULAR HGB CONC 29.5 g/dL (33.0-37.0); MEAN PLATELET VOLUME 9.8 fL (7.2-11.7); MONO # 0.9 K/uL (0.0-0.8); MONO % 4.2 % (0.0-10.0); NRBC % 0.4 % (0.0-2.0)
--- NOTE | 2017-08-10 14:17 | RAD ---
HISTORY: s/p code blue COMPARISON: No prior. FINDINGS: LUNGS: Persistent opacity at medial right base. Vague right perihilar opacity new since prior examination. Left-sided opacity has resolved. PLEURA: Probable small left pleural effusion. No evidence of right pleural effusion. No pneumothorax. CARDIOVASCULAR: Mild cardiomegaly. Congestive change. ET tube approximately 5.2 cm above the tracheal noris. AICD. OSSEOUS STRUCTURES: No significant abnormalities. VISUALIZED UPPER ABDOMEN: Normal. OTHER FINDINGS: None. IMPRESSION: Resolved left-sided opacity. Small left pleural effusion. Persistent medial right base and new vague right perihilar opacity. Pulmonary vascular congestion. New endotracheal tube appropriately positioned. AICD.
[2017-08-10 14:19] LABS: MEAN CELL VOLUME 74.9 fL (80.0-94.0)
[2017-08-10 14:54] LABS: MAGNESIUM 2.3 mg/dL (1.6-2.3); PHOSPHOROUS 8.8 mg/dL (2.5-4.5)
[2017-08-10 15:42] LABS: ABG ALLEN TEST POS; ABG MECHANICAL RATE 25; ARTERIAL BLOOD GAS MODE PRVC; ARTERIAL BLOOD HGB O2 SAT 90.9 % (95.0-98.0); ATERIAL BLOOD GAS PEEP 5; CARBOXYHEMOGLOBIN 2.4 % (0.5-1.5); DRAW SITE RBA; HHB 6.2 % (0.0-5.0); METHEMOGLOBIN 0.4 % (0.0-3.0)
--- NOTE | 2017-08-10 15:45 | CP.PCM.PN ---
Subjective - Date & Time of Evaluation Date of Evaluation: 08/10/17 Time of Evaluation: 14:30 - Subjective Subjective: events noted s/p respiratory arrest intubated poor u/o lasix challenge being given Objective - Vital Signs/Intake and Output Vital Signs (last 24 hours): Temp Pulse Resp BP Pulse Ox 98.1 F 81 26 H 98/41 L 94 L 08/10/17 08:08 08/10/17 15:20 08/10/17 15:20 08/10/17 15:18 08/10/17 15:20 Intake and Output: 08/10/17 08/10/17 06:59 18:59 Intake Total 760 17.3 Output Total 50 Balance 760 -32.7 - Medications Medications: Current Medications Acetylcysteine (Acetylcysteine 20%) 3 ml PO Q12H [facility] Last Admin: 08/09/17 23:58 Dose: 3 ml Aspirin (Ecotrin) 81 mg PO DAILY [facility] [place] Last Admin: 08/10/17 10:27 Dose: 81 mg Docusate Sodium (Colace) 100 mg PO TID [facility] [place] Last Admin: 08/10/17 10:27 Dose: 100 mg Famotidine (Pepcid) 20 mg PO DAILY [facility] [place] Last Admin: 08/10/17 10:25 Dose: 20 mg Ferric Sodium Gluconate Complex (Ferrlecit) 125 mg IVPB DAILY [facility] [place] Stop: 08/16/17 10:01 Last Admin: 08/10/17 10:26 Dose: 125 mg Furosemide (Lasix) 20 mg IVP DAILY [facility] [place] Last Admin: 08/09/17 09:03 Dose: 20 mg Ceftriaxone Sodium (Rocephin Iv 1 Gm Duplex) 50 mls @ 100 mls/hr IVPB DAILY [facility] [place] Last Admin: 08/10/17 10:30 Dose: 100 mls/hr Azithromycin 500 mg/ Sodium (Chloride) 250 mls @ 167 mls/hr IVPB Q24H [facility] [place] Last Admin: 08/10/17 10:28 Dose: 167 mls/hr Heparin Sodium/Sodium Chloride (Heparin 12537 Units/250ml 1/2 Normal Saline) 25 ,000 units in 250 mls @ 11.376 mls/hr IV .[id number] PRN; Protocol; 12 UNITS/KG/HR PRN Reason: PROTOCOL Last Admin: 08/09/17 15:05 Dose: 12 units/kg/hr, 11.376 mls/hr Nitroglycerin/Dextrose (Nitroglycerin 50 Mg/250 Ml D5w) 50 mg in 250 mls @ 7.5 mls/hr IV .Q24H [facility]; 25 MCG/MIN PRN Reason: Protocol Insulin Aspart (Novolog) 0 unit SC ACHS [facility] FERNANDO PRN Reason: Protocol Last Admin: 08/10/17 12:04 Dose: Not Given Ipratropium Fontanelle (Atrovent) 0.5 mg IH RQ6 PRN PRN Reason: Shortness of Breath Last Admin: 08/10/17 01:37 Dose: 0.5 mg Lorazepam (Ativan) 1 mg IVP Q2H PRN PRN Reason: Agitation Metoprolol Succinate (Toprol Xl) 50 mg PO DAILY [facility] [place] Last Admin: 08/10/17 10:27 Dose: 50 mg Nifedipine (Procardia Xl) 90 mg PO DAILY [facility] [place] Last Admin: 08/10/17 10:27 Dose: 90 mg Rosuvastatin Calcium (Crestor) 10 mg PO HS [facility] [place] Last Admin: 08/09/17 22:50 Dose: 10 mg Saccharomyces Boulardii (Florastor) 250 mg PO BID [facility] [place] Last Admin: 08/10/17 10:27 Dose: 250 mg - Labs Labs: 08/10/17 13:50 08/10/17 13:50 PT 13.0 SECONDS (9.7-12.2) H 08/09/17 23:23 INR 1.2 08/09/17 23:23 APTT 75 SECONDS (21-34) H D 08/10/17 07:26 - Constitutional Appears: Chronically Ill - Head Exam Additional comments: endotracheal intubation - Neck Exam Neck Exam: Full ROM. absent: Lymphadenopathy - Respiratory Exam Respiratory Exam: Decreased Breath Sounds, NORMAL BREATHING PATTERN - GI/Abdominal Exam GI & Abdominal Exam: Distended. absent: Tenderness - Extremities Exam Extremities Exam: absent: Pedal Edema - Neurological Exam Neurological Exam: absent: Alert, Oriented x3 Assessment and Plan - Assessment and Plan (Free Text) Assessment: ischemic cardiomyopathy with acute respiratory failure inotropes being initiated for lasix stress test, u/o marginal at this time check urine Na
[2017-08-10 15:56] LABS: RBC URINE 3 /hpf (0-3); URINE BACTERIA RARE (<OCC); URINE BILIRUBIN NEGATIVE (NEGATIVE); URINE BLOOD NEGATIVE (NEGATIVE); URINE COLOR Yellow (YELLOW); URINE GLUCOSE (UA) 1+ mg/dL (Normal); URINE KETONE NEGATIVE (NEGATIVE); URINE LEUKOCYTE ESTERASE 1+ Leu/uL (Negative); URINE PROTEIN 2+ mg/dL (NEGATIVE); URINE UROBILINOGEN NORMAL mg/dL (0.2-1.0); WBC CLUMPS FEW /hpf; WBC URINE 24 /hpf (0-5)
--- NOTE | 2017-08-10 16:15 | PCM.PROC ---
Procedures Attestation:: I certify that I have explained the specified Operation(s) or Procedure(s), risks, benefits and reasonable alternatives to the Patient and/or other person responsible. The opportunity was given to ask questions and all questions answered - Central Line Placement Right Femoral Aseptic technique was employed throughout the procedure: Hand Hygiene done prior to procedure, Full sterile barriers (mask, hair cover, sterile gown, sterile gloves), Full body sterile drape, Chloraprep Antiseptic: 2 minute prep for Femoral CVP Time Out Performed: No Pt. Placed on Pulse Ox Monitor: Yes Central Line Prep: Chlorhexidine-Alcohol Combination Local Anesthesia Used: Lidocaine 1% Amount of Anesthesia Used (mls): 4 Ultrasound Used for Placement: No Central Line Lumen Inserted: triple Central Line Length: 20 cm Post Procedure: Sutured in Place, Good Blood Return, All Ports Aspirated, Flushed, Capped, Sterile Dressing Applied Secured by: Suture Post procedure dressing: Chlorhexidine disc (Biopatch) Post Procedure X-Ray: No Patient Tolerated Procedure: Well
--- NOTE | 2017-08-10 16:41 | CP.PCM.CON ---
<Anton Moore - Last Filed: 08/10/17 16:38> History of Present Illness - History of Present Illness History of Present Illness: HPI: 77 year old male with PMHx significant for CAD with prior stent placement, HTN, HLD, DM 2, CKD, Anemia, permanent pacemaker, prior DVT and chronic lower extremity edema presents with complaints of chest pain and shortness of breath with ambulation. He states that the chest pain felt like a cramp. It was rated a 7/10. It is unclear whether the chest pain radiated to his arm; however so he did state that he also had left hand pain as well as left sided lower back pain. He states that the shortness of breath has been occurring over the past couple of weeks. He states that he feels his symptoms after walking one block. He uses one pillow to sleep at night. He admits to occasional lower extremity swelling however he has not experienced that " for some time now". In short, patient states that he felt sick and thus he came to the hospital. He also admits to cough with productive white sputum of 12 day duration. He denies sick contacts. He admits to subjective warmth but did not actually use a thermometer. He admits to palpitations as well. He admits to constipation of approx 8 days, but states that this is a chronic issue. He denies paresthesias, headaches, nausea or vomiting, dysuria or recent illness at this time. Of note , the history was challenging to obtain due to the language barrier and because patient paused many times while being asked questions. Patient had to be explained several concepts repetitively before an answer was received. This being said, patient may have an underlying dementia. PMHx: As noted above Surgical Hx: abdominal hernia repair, pacemaker placement, prior cardiac stent placement, Prior Cardiac cath by Dr. Cortés FamilyHx: Mom with DM and vaginal CA, Dad with from [place] at 68. Medications: Refer to the MAR however this medication list will need to be verified as patient does not know the medications that he takes. Patient's family member did not know either. They have been asked to bring in a list of the medications or at the very least find out the name of the pharmacy. The pharmacy name that was currently provided does not actually exist. Previously on Eliquis for a prior Hx of DVT per Laboratory Immunologist Dr. Cortés. Social Hx: denies tobacco use; only drank alcohol sparingly when he was very young; denies illicit drug use. Allergies: no known drug allergies PMD: Dr Pickard Review of Systems - Review of Systems Systems not reviewed;Unavailable: Intubated Past Patient History - Infectious Disease Hx of Infectious Diseases: None - Past Medical History & Family History Past Medical History?: Yes - Past Social History Smoking Status: Never Smoked Alcohol: None Drugs: Denies Home Situation {Lives}: With Family - CARDIAC Hx Congestive Heart Failure: Yes Hx Hypercholesterolemia: Yes Hx Hypertension: Yes - PULMONARY Hx Asthma: Yes - RENAL Hx Chronic Kidney Disease: Yes (REANAL INSUFFICIENCY) Hx Kidney Stones: Yes - ENDOCRINE/METABOLIC Hx Diabetes Mellitus Type 2: Yes - MUSCULOSKELETAL/RHEUMATOLOGICAL Hx Arthritis: Yes - GENITOURINARY/GYNECOLOGICAL Hx Genitourinary Disorders: Yes Hx Prostate Problems: Yes (ELEVATED PSA) - PSYCHIATRIC Hx Anxiety: Yes Hx Depression: Yes Hx Substance Use: No - SURGICAL HISTORY Hx Surgeries: Yes Other/Comment: pacemaker on - ANESTHESIA Hx Anesthesia: Yes Hx Anesthesia Reactions: No Hx Malignant Hyperthermia: No Meds Allergies/Adverse Reactions: Allergies Allergy/AdvReac Type Severity Reaction Status Date / Time No Known Allergies Allergy Verified 08/06/17 13:20 - Medications Medications: Current Medications Acetylcysteine (Acetylcysteine 20%) 3 ml PO Q12H [facility] Last Admin: 08/09/17 23:58 Dose: 3 ml Aspirin (Ecotrin) 81 mg PO DAILY [facility] Last Admin: 08/10/17 10:27 Dose: 81 mg Docusate Sodium (Colace) 100 mg PO TID [facility] Last Admin: 08/10/17 10:27 Dose: 100 mg Famotidine (Pepcid) 20 mg PO DAILY [facility] Last Admin: 08/10/17 10:25 Dose: 20 mg Ferric Sodium Gluconate Complex (Ferrlecit) 125 mg IVPB DAILY [facility] Stop: 08/16/17 10:01 Last Admin: 08/10/17 10:26 Dose: 125 mg Furosemide (Lasix) 20 mg IVP DAILY [facility] Last Admin: 08/09/17 09:03 Dose: 20 mg Ceftriaxone Sodium (Rocephin Iv 1 Gm Duplex) 50 mls @ 100 mls/hr IVPB DAILY [facility] Last Admin: 08/10/17 10:30 Dose: 100 mls/hr Azithromycin 500 mg/ Sodium (Chloride) 250 mls @ 167 mls/hr IVPB Q24H [facility] Last Admin: 08/10/17 10:28 Dose: 167 mls/hr Heparin Sodium/Sodium Chloride (Heparin 22717 Units/250ml 1/2 Normal Saline) 25 ,000 units in 250 mls @ 11.376 mls/hr IV .[id number] PRN; Protocol; 12 UNITS/KG/HR PRN Reason: PROTOCOL Last Admin: 08/09/17 15:05 Dose: 12 units/kg/hr, 11.376 mls/hr Nitroglycerin/Dextrose (Nitroglycerin 50 Mg/250 Ml D5w) 50 mg in 250 mls @ 7.5 mls/hr IV .Q24H [facility]; 25 MCG/MIN PRN Reason: Protocol Insulin Aspart (Novolog) 0 unit SC ACHS [facility] PRN Reason: Protocol Last Admin: 08/10/17 12:04 Dose: Not Given Ipratropium [place] (Atrovent) 0.5 mg IH RQ6 PRN PRN Reason: Shortness of Breath Last Admin: 08/10/17 01:37 Dose: 0.5 mg Lorazepam (Ativan) 1 mg IVP Q2H PRN PRN Reason: Agitation Metoprolol Succinate (Toprol Xl) 50 mg PO DAILY [facility] Last Admin: 08/10/17 10:27 Dose: 50 mg Nifedipine (Procardia Xl) 90 mg PO DAILY [facility] Last Admin: 08/10/17 10:27 Dose: 90 mg Rosuvastatin Calcium (Crestor) 10 mg PO HS [facility] Last Admin: 08/09/17 22:50 Dose: 10 mg Saccharomyces Boulardii (Florastor) 250 mg PO BID [facility] Last Admin: 08/10/17 10:27 Dose: 250 mg Physical Exam - Constitutional Appears: Other (s/p code blue, currently sedated on ativan) - Head Exam Head Exam: ATRAUMATIC, NORMAL INSPECTION - Neck Exam Neck exam: Negative for: Lymphadenopathy - Respiratory Exam Respiratory Exam: Clear to Auscultation Bilateral Additional comments: intubated on prvc - Cardiovascular Exam Cardiovascular Exam: REGULAR RHYTHM, RRR - GI/Abdominal Exam GI & Abdominal Exam: Normal Bowel Sounds, Soft - Rectal Exam Rectal Exam: Deferred - Extremities Exam Extremities exam: Positive for: normal inspection. Negative for: pedal edema - Neurological Exam Neurological exam: Altered Results - Vital Signs Recent Vital Signs: Last Vital Signs Temp 97.8 F 08/10/17 13:30 Pulse 80 08/10/17 16:12 Resp 17 08/10/17 16:12 BP 97/42 L 08/10/17 16:12 Pulse Ox 97 08/10/17 16:12 - Labs Result Diagrams: 08/10/17 13:50 08/10/17 13:50 Labs: Laboratory Results - last 24 hr 08/08/17 08/09/17 08/09/17 07:11 16:39 20:52 WBC RBC Hgb Hct MCV MCH MCHC RDW Plt Count MPV Neut % (Auto) Lymph % (Auto) [place] % (Auto) Eos % (Auto) Baso % (Auto) Neut # Lymph # [place] # Eos # Baso # Neutrophils % (Manual) Lymphocytes % (Manual) Monocytes % (Manual) Platelet Estimate Large Platelets Hypochromasia (manual) Poikilocytosis (manual Anisocytosis (manual) Microcytosis (manual) Macrocytosis (manual) Tear Drop Cells Ovalocytes PT INR APTT 58 H D Puncture Site pCO2 pO2 HCO3 ABG pH ABG Total CO2 ABG O2 Saturation ABG Base Excess ABG Hemoglobin ABG Carboxyhemoglobin POC ABG HHb (Measured) ABG Methemoglobin Uriel Test ABG Potassium A-a O2 Difference Respiratory Index Hgb O2 Saturation Glucose Lactate Vent Mode Mechanical Rate FiO2 Tidal Volume PEEP Crit Value Called To Crit Value Called By Crit Value Read Back Blood Gas Notified Time Sodium Potassium Chloride Carbon Dioxide Anion Gap BUN Creatinine Est GFR ( Amer) Est GFR (Non-Af Amer) POC Glucose (mg/dL) 263 H Random Glucose Calcium Phosphorus Magnesium Total Bilirubin AST ALT Alkaline Phosphatase Total Creatine Kinase CK-MB (Mass) Troponin I, Quant Total Protein Albumin Albumin (PEP) 3.2 L Globulin Albumin/Globulin Ratio Jlpvf-8-Ngmzjuqiu 0.4 H Jhyvk-3-Ezwgklzvw 0.8 Hzbw-1-Rzmntkoa 0.5 Oxnb-4-Sggmapri 0.5 Gamma Globulins 1.5 Abnorm Protein Band 1 TEST NOT PERFORMED Abnorm Protein Band 2 TEST NOT PERFORMED Abnorm Protein Band 3 TEST NOT PERFORMED Arterial Blood Potassium Urine Color Urine Clarity Urine pH Ur Specific [place] Urine Protein Urine Glucose (UA) Urine Ketones Urine Blood Urine Nitrate Urine Bilirubin Urine Urobilinogen Ur Leukocyte Esterase Urine WBC (Auto) Urine RBC (Auto) Urine WBC Clumps (Auto) Ur Squamous Epith Cells Urine Bacteria FLORENCIO & SPEP Interp See note Serum Immunofixation Detected H 08/09/17 08/09/17 08/10/17 21:31 23:23 00:46 WBC RBC Hgb Hct MCV MCH MCHC RDW Plt Count MPV Neut % (Auto) Lymph % (Auto) [place] % (Auto) Eos % (Auto) Baso % (Auto) Neut # Lymph # [place] # Eos # Baso # Neutrophils % (Manual) Lymphocytes % (Manual) Monocytes % (Manual) Platelet Estimate Large Platelets Hypochromasia (manual) Poikilocytosis (manual Anisocytosis (manual) Microcytosis (manual) Macrocytosis (manual) Tear Drop Cells Ovalocytes PT 13.0 H INR 1.2 APTT Puncture Site pCO2 pO2 HCO3 ABG pH ABG Total CO2 ABG O2 Saturation ABG Base Excess ABG Hemoglobin ABG Carboxyhemoglobin POC ABG HHb (Measured) ABG Methemoglobin Uriel Test ABG Potassium A-a O2 Difference Respiratory Index Hgb O2 Saturation Glucose Lactate Vent Mode Mechanical Rate FiO2 Tidal Volume PEEP Crit Value Called To Crit Value Called By Crit Value Read Back Blood Gas Notified Time Sodium Potassium Chloride Carbon Dioxide Anion Gap BUN Creatinine Est GFR ( Amer) Est GFR (Non-Af Amer) POC Glucose (mg/dL) 240 H Random Glucose Calcium Phosphorus Magnesium 1.9 Total Bilirubin AST ALT Alkaline Phosphatase Total Creatine Kinase CK-MB (Mass) Troponin I, Quant Total Protein Albumin Albumin (PEP) Globulin Albumin/Globulin Ratio Ugwyl-7-Hwxxgmcpf Mifsu-6-Extkzgshs Nzpc-7-Fsnmvehc Zqgd-5-Dwdwkvlg Gamma Globulins Abnorm Protein Band 1 Abnorm Protein Band 2 Abnorm Protein Band 3 Arterial Blood Potassium Urine Color Urine Clarity Urine pH Ur Specific [place] Urine Protein Urine Glucose (UA) Urine Ketones Urine Blood Urine Nitrate Urine Bilirubin Urine Urobilinogen Ur Leukocyte Esterase Urine WBC (Auto) Urine RBC (Auto) Urine WBC Clumps (Auto) Ur Squamous Epith Cells Urine Bacteria FLORENCIO & SPEP Interp Serum Immunofixation 08/10/17 08/10/17 08/10/17 06:25 07:26 07:26 WBC 15.7 H RBC 4.42 Hgb 10.0 L Hct 31.9 L MCV 72.2 L MCH 22.6 L MCHC 31.3 L RDW 20.0 H Plt Count 406 H MPV 9.1 Neut % (Auto) 90.3 H Lymph % (Auto) 5.2 L [place] % (Auto) 4.1 Eos % (Auto) 0.1 Baso % (Auto) 0.3 Neut # 14.2 H Lymph # 0.8 L [place] # 0.6 Eos # 0.0 Baso # 0.0 Neutrophils % (Manual) 91 H Lymphocytes % (Manual) 6 L Monocytes % (Manual) 3 Platelet Estimate Normal Large Platelets Present Hypochromasia (manual) Slight Poikilocytosis (manual Slight Anisocytosis (manual) Slight Microcytosis (manual) Slight Macrocytosis (manual) Slight Tear Drop Cells Slight Ovalocytes Slight PT INR APTT Puncture Site pCO2 pO2 HCO3 ABG pH ABG Total CO2 ABG O2 Saturation ABG Base Excess ABG Hemoglobin ABG Carboxyhemoglobin POC ABG HHb (Measured) ABG Methemoglobin Uriel Test ABG Potassium A-a O2 Difference Respiratory Index Hgb O2 Saturation Glucose Lactate Vent Mode Mechanical Rate FiO2 Tidal Volume PEEP Crit Value Called To Crit Value Called By Crit Value Read Back Blood Gas Notified Time Sodium 142 Potassium 3.9 Chloride 106 Carbon Dioxide 20 L Anion Gap 20 BUN 45 H Creatinine 2.3 H Est GFR ( Amer) 34 Est GFR (Non-Af Amer) 28 POC Glucose (mg/dL) 285 H Random Glucose 271 H Calcium 8.6 Phosphorus Magnesium Total Bilirubin 0.7 AST 27 ALT 29 Alkaline Phosphatase 109 Total Creatine Kinase CK-MB (Mass) Troponin I, Quant Total Protein 7.3 Albumin 3.8 Albumin (PEP) Globulin 3.6 Albumin/Globulin Ratio 1.1 Bgarb-5-Zexzkpljw Hnizv-3-Uuvgobjob Xnxb-8-Avyukmzy Ldyq-7-Qtlmbjhm Gamma Globulins Abnorm Protein Band 1 Abnorm Protein Band 2 Abnorm Protein Band 3 Arterial Blood Potassium Urine Color Urine Clarity Urine pH Ur Specific [place] Urine Protein Urine Glucose (UA) Urine Ketones Urine Blood Urine Nitrate Urine Bilirubin Urine Urobilinogen Ur Leukocyte Esterase Urine WBC (Auto) Urine RBC (Auto) Urine WBC Clumps (Auto) Ur Squamous Epith Cells Urine Bacteria FLORENCIO & SPEP Interp Serum Immunofixation 08/10/17 08/10/17 08/10/17 07:26 13:30 13:34 WBC RBC Hgb Hct MCV MCH MCHC RDW Plt Count MPV Neut % (Auto) Lymph % (Auto) [place] % (Auto) Eos % (Auto) Baso % (Auto) Neut # Lymph # [place] # Eos # Baso # Neutrophils % (Manual) Lymphocytes % (Manual) Monocytes % (Manual) Platelet Estimate Large Platelets Hypochromasia (manual) Poikilocytosis (manual Anisocytosis (manual) Microcytosis (manual) Macrocytosis (manual) Tear Drop Cells Ovalocytes PT INR APTT 75 H D Puncture Site Rf pCO2 57 H pO2 44 L* HCO3 12.1 L ABG pH 7.05 L* ABG Total CO2 17.5 L ABG O2 Saturation 67.2 L ABG Base Excess -15.0 L ABG Hemoglobin ABG Carboxyhemoglobin POC ABG HHb (Measured) ABG Methemoglobin Uriel Test Na ABG Potassium 3.0 L A-a O2 Difference 598.0 Respiratory Index 13.6 Hgb O2 Saturation Glucose 458 H* Lactate 7.2 H* Vent Mode A/c Mechanical Rate 22 FiO2 100.0 Tidal Volume 550 PEEP 5 Crit Value Called To Dr larson Crit Value Called By Giovanna costello program aide Crit Value Read Back Y Blood Gas Notified Time 1335 Sodium 143.0 Potassium Chloride 108.0 H Carbon Dioxide Anion Gap BUN Creatinine Est GFR ( Amer) Est GFR (Non-Af Amer) POC Glucose (mg/dL) Random Glucose Calcium Phosphorus 8.8 H Magnesium 2.3 Total Bilirubin AST ALT Alkaline Phosphatase Total Creatine Kinase CK-MB (Mass) Troponin I, Quant Total Protein Albumin Albumin (PEP) Globulin Albumin/Globulin Ratio Rgdqo-3-Wekpmyopz Joqbj-8-Exvjqpdtw Rhlk-1-Lcijpcxs Lkmz-9-Ejskgzra Gamma Globulins Abnorm Protein Band 1 Abnorm Protein Band 2 Abnorm Protein Band 3 Arterial Blood Potassium 3.0 L Urine Color Urine Clarity Urine pH Ur Specific [place] Urine Protein Urine Glucose (UA) Urine Ketones Urine Blood Urine Nitrate Urine Bilirubin Urine Urobilinogen Ur Leukocyte Esterase Urine WBC (Auto) Urine RBC (Auto) Urine WBC Clumps (Auto) Ur Squamous Epith Cells Urine Bacteria FLORENCIO & SPEP Interp Serum Immunofixation 08/10/17 08/10/17 08/10/17 13:50 13:50 15:40 WBC 21.0 H RBC 4.30 L Hgb 9.5 L Hct 32.2 L MCV 74.9 L D MCH 22.1 L MCHC 29.5 L RDW 20.8 H Plt Count 413 H MPV 9.8 Neut % (Auto) 80.5 H Lymph % (Auto) 13.7 L [place] % (Auto) 4.2 Eos % (Auto) 0.6 Baso % (Auto) 1.0 Neut # 16.9 H Lymph # 2.9 [place] # 0.9 H Eos # 0.1 Baso # 0.2 Neutrophils % (Manual) Lymphocytes % (Manual) Monocytes % (Manual) Platelet Estimate Large Platelets Hypochromasia (manual) Poikilocytosis (manual Anisocytosis (manual) Microcytosis (manual) Macrocytosis (manual) Tear Drop Cells Ovalocytes PT INR APTT Puncture Site Rba pCO2 29 L pO2 53 L HCO3 23.7 ABG pH 7.48 H ABG Total CO2 22.5 ABG O2 Saturation 93.6 L ABG Base Excess -1.4 ABG Hemoglobin 8.8 L ABG Carboxyhemoglobin 2.4 H POC ABG HHb (Measured) 6.2 H ABG Methemoglobin 0.4 Uriel Test Pos ABG Potassium A-a O2 Difference 624.0 Respiratory Index 11.8 Hgb O2 Saturation 90.9 L Glucose Lactate Vent Mode Prvc Mechanical Rate 25 FiO2 100.0 Tidal Volume 550 PEEP 5 Crit Value Called To Crit Value Called By Crit Value Read Back Blood Gas Notified Time Sodium 143 Potassium 3.6 Chloride 101 Carbon Dioxide 18 L Anion Gap 28 H BUN 45 H Creatinine 2.6 H Est GFR ( Amer) 29 Est GFR (Non-Af Amer) 24 POC Glucose (mg/dL) Random Glucose 463 H* D Calcium 9.5 Phosphorus Magnesium Total Bilirubin 0.7 AST 189 H D ALT 165 H D Alkaline Phosphatase 115 Total Creatine Kinase 324 H CK-MB (Mass) 7.41 H Troponin I, Quant 0.6470 H* Total Protein 6.3 Albumin 3.3 L Albumin (PEP) Globulin 3.1 Albumin/Globulin Ratio 1.1 Uqush-8-Cijkgscaj Hewrb-2-Lcktlflrf Nxna-0-Fyxfvbuy Bhfa-6-Jcqbdndr Gamma Globulins Abnorm Protein Band 1 Abnorm Protein Band 2 Abnorm Protein Band 3 Arterial Blood Potassium Urine Color Urine Clarity Urine pH Ur Specific [place] Urine Protein Urine Glucose (UA) Urine Ketones Urine Blood Urine Nitrate Urine Bilirubin Urine Urobilinogen Ur Leukocyte Esterase Urine WBC (Auto) Urine RBC (Auto) Urine WBC Clumps (Auto) Ur Squamous Epith Cells Urine Bacteria FLORENCIO & SPEP Interp Serum Immunofixation 08/10/17 15:42 WBC RBC Hgb Hct MCV MCH MCHC RDW Plt Count MPV Neut % (Auto) Lymph % (Auto) [place] % (Auto) Eos % (Auto) Baso % (Auto) Neut # Lymph # [place] # Eos # Baso # Neutrophils % (Manual) Lymphocytes % (Manual) Monocytes % (Manual) Platelet Estimate Large Platelets Hypochromasia (manual) Poikilocytosis (manual Anisocytosis (manual) Microcytosis (manual) Macrocytosis (manual) Tear Drop Cells Ovalocytes PT INR APTT Puncture Site pCO2 pO2 HCO3 ABG pH ABG Total CO2 ABG O2 Saturation ABG Base Excess ABG Hemoglobin ABG Carboxyhemoglobin POC ABG HHb (Measured) ABG Methemoglobin Uriel Test ABG Potassium A-a O2 Difference Respiratory Index Hgb O2 Saturation Glucose Lactate Vent Mode Mechanical Rate FiO2 Tidal Volume PEEP Crit Value Called To Crit Value Called By Crit Value Read Back Blood Gas Notified Time Sodium Potassium Chloride Carbon Dioxide Anion Gap BUN Creatinine Est GFR ( Amer) Est GFR (Non-Af Amer) POC Glucose (mg/dL) Random Glucose Calcium Phosphorus Magnesium Total Bilirubin AST ALT Alkaline Phosphatase Total Creatine Kinase CK-MB (Mass) Troponin I, Quant Total Protein Albumin Albumin (PEP) Globulin Albumin/Globulin Ratio Xfijm-6-Usvyvxxct Hvwwo-7-Gzcruediz Duqh-5-Bpfcbdsw Kfsh-9-Cxmthtre Gamma Globulins Abnorm Protein Band 1 Abnorm Protein Band 2 Abnorm Protein Band 3 Arterial Blood Potassium Urine Color Yellow Urine Clarity Hazy Urine pH 5.0 Ur Specific [place] 1.017 Urine Protein 2+ H Urine Glucose (UA) 1+ H Urine Ketones Negative Urine Blood Negative Urine Nitrate Negative Urine Bilirubin Negative Urine Urobilinogen Normal Ur Leukocyte Esterase 1+ H Urine WBC (Auto) 24 H Urine RBC (Auto) 3 Urine WBC Clumps (Auto) Few H Ur Squamous Epith Cells < 1 Urine Bacteria Rare FLORENCIO & SPEP Interp Serum Immunofixation Assessment & Plan - Assessment and Plan (Free Text) Assessment: 77 yo M admitted to ICU from floors, patient was to get CT scan and had respiratory distress, a code blue was called and patient was transferred to ICU and intubated. Cardiovascular: code blue 08/10/17; CHF; CAD; HTN; HLD; Hx of DVT labs drawn after code blue -> troponin elevated, CK-MB elevated nitroglycerin drip On Metoprolol 50 mg Po daily, Aspirin 81mg po daily, Procardia 90 mg po daily, Cozaar 100 mg po daily (held for Cr rise) Lasix 20 mg IV QD, decreased due to rising Cr - on hold because of continues rise in Cr Echo - 25% systolic failure Hx of cardiac stent in the past On Crestor 10 mg Po HS Patient was previously on Eliquis for a prior history of DVT. ID: pneumonia Rocephin 1gm iv daily started 08/07/17 and Azithromycin 500mg iv Q24 started 08/07 Blood culture, throat culture, Rapid strep, Influenza A and B studies, Urine Legionella, Mycoplasma studies = Negative Nephro: CKD GFR 45 which appears to be around baseline Dr. Miranda recommendations * Stop ARB and diuretics, gentle hydration Endo: DM Accuchrayas ISS- High Dose A1c 8.4 Hold home medications at this time Heme: Anemia Likely iron deficiency anemia based on prior admissions Ferritin 27.4, Iron 22, TIBC 322, % Saturation 7 ferrlecit 125mg ivpb daily Monitor Hgb/Hct Neuro: Ativan 1mg ivp q2h prn for agitation Prophylaxis: famotidine 20mg po daily heparin drip <Elkin Larson S - Last Filed: 08/10/17 17:50> Meds - Medications Medications: Current Medications Acetylcysteine (Acetylcysteine 20%) 3 ml PO Q12H [facility] Last Admin: 08/10/17 17:33 Dose: Not Given Aspirin (Ecotrin) 81 mg PO DAILY [facility] Last Admin: 08/10/17 10:27 Dose: 81 mg Docusate Sodium (Colace) 100 mg PO TID [facility] Last Admin: 08/10/17 17:32 Dose: 100 mg Famotidine (Pepcid) 20 mg PO DAILY [facility] Last Admin: 08/10/17 10:25 Dose: 20 mg Ferric Sodium Gluconate Complex (Ferrlecit) 125 mg IVPB DAILY [facility] Stop: 08/16/17 10:01 Last Admin: 08/10/17 10:26 Dose: 125 mg Furosemide (Lasix) 20 mg IVP DAILY [facility] Last Admin: 08/09/17 09:03 Dose: 20 mg Ceftriaxone Sodium (Rocephin Iv 1 Gm Duplex) 50 mls @ 100 mls/hr IVPB DAILY [facility] Last Admin: 08/10/17 10:30 Dose: 100 mls/hr Azithromycin 500 mg/ Sodium (Chloride) 250 mls @ 167 mls/hr IVPB Q24H [facility] Last Admin: 08/10/17 10:28 Dose: 167 mls/hr Heparin Sodium/Sodium Chloride (Heparin 82361 Units/250ml 1/2 Normal Saline) 25 ,000 units in 250 mls @ 11.376 mls/hr IV .[id number] PRN; Protocol; 12 UNITS/KG/HR PRN Reason: PROTOCOL Last Admin: 08/09/17 15:05 Dose: 12 units/kg/hr, 11.376 mls/hr Nitroglycerin/Dextrose (Nitroglycerin 50 Mg/250 Ml D5w) 50 mg in 250 mls @ 7.5 mls/hr IV .Q24H [facility]IS FERNANDO; 25 MCG/MIN PRN Reason: Protocol Last Admin: 08/10/17 13:30 Dose: 5 mcg/min, 1.5 mls/hr Insulin Aspart (Novolog) 0 unit SC ACHS [facility] FERNANDO PRN Reason: Protocol Last Admin: 08/10/17 12:04 Dose: Not Given Ipratropium [place] (Atrovent) 0.5 mg IH RQ6 PRN PRN Reason: Shortness of Breath Last Admin: 08/10/17 01:37 Dose: 0.5 mg Lorazepam (Ativan) 1 mg IVP Q2H PRN PRN Reason: Agitation Last Admin: 08/10/17 14:00 Dose: 1 mg Metoprolol Succinate (Toprol Xl) 50 mg PO DAILY [facility] Last Admin: 08/10/17 10:27 Dose: 50 mg Nifedipine (Procardia Xl) 90 mg PO DAILY [facility] Last Admin: 08/10/17 10:27 Dose: 90 mg Rosuvastatin Calcium (Crestor) 10 mg PO HS [facility] Last Admin: 08/09/17 22:50 Dose: 10 mg Saccharomyces Boulardii (Florastor) 250 mg PO BID [facility] Last Admin: 08/10/17 10:27 Dose: 250 mg Results - Vital Signs Recent Vital Signs: Last Vital Signs Temp 97.8 F 08/10/17 13:30 Pulse 86 08/10/17 17:18 Resp 18 08/10/17 17:18 BP 103/50 L 08/10/17 17:18 Pulse Ox 95 08/10/17 17:18 - Labs Result Diagrams: 08/10/17 13:50 08/10/17 13:50 Labs: Laboratory Results - last 24 hr 08/08/17 08/09/17 08/09/17 07:11 20:52 21:31 WBC RBC Hgb Hct MCV MCH MCHC RDW Plt Count MPV Neut % (Auto) Lymph % (Auto) [place] % (Auto) Eos % (Auto) Baso % (Auto) Neut # Lymph # [place] # Eos # Baso # Neutrophils % (Manual) Lymphocytes % (Manual) Monocytes % (Manual) Platelet Estimate Large Platelets Hypochromasia (manual) Poikilocytosis (manual Anisocytosis (manual) Microcytosis (manual) Macrocytosis (manual) Tear Drop Cells Ovalocytes PT INR APTT 58 H D Puncture Site pCO2 pO2 HCO3 ABG pH ABG Total CO2 ABG O2 Saturation ABG Base Excess ABG Hemoglobin ABG Carboxyhemoglobin POC ABG HHb (Measured) ABG Methemoglobin Uriel Test ABG Potassium A-a O2 Difference Respiratory Index Hgb O2 Saturation Glucose Lactate Vent Mode Mechanical Rate FiO2 Tidal Volume PEEP Crit Value Called To Crit Value Called By Crit Value Read Back Blood Gas Notified Time Sodium Potassium Chloride Carbon Dioxide Anion Gap BUN Creatinine Est GFR ( Amer) Est GFR (Non-Af Amer) POC Glucose (mg/dL) 240 H Random Glucose Calcium Phosphorus Magnesium Total Bilirubin AST ALT Alkaline Phosphatase Total Creatine Kinase CK-MB (Mass) Troponin I, Quant Total Protein Albumin Albumin (PEP) 3.2 L Globulin Albumin/Globulin Ratio Ibzda-6-Esfbqtvfd 0.4 H Wlbvu-4-Lubwfkpxb 0.8 Joex-2-Fcwokjhz 0.5 Fhiu-8-Nbrvudfe 0.5 Gamma Globulins 1.5 Abnorm Protein Band 1 TEST NOT PERFORMED Abnorm Protein Band 2 TEST NOT PERFORMED Abnorm Protein Band 3 TEST NOT PERFORMED Arterial Blood Potassium Urine Color Urine Clarity Urine pH Ur Specific [place] Urine Protein Urine Glucose (UA) Urine Ketones Urine Blood Urine Nitrate Urine Bilirubin Urine Urobilinogen Ur Leukocyte Esterase Urine WBC (Auto) Urine RBC (Auto) Urine WBC Clumps (Auto) Ur Squamous Epith Cells Urine Bacteria FLORENCIO & SPEP Interp See note 08/09/17 08/10/17 08/10/17 23:23 00:46 06:25 WBC RBC Hgb Hct MCV MCH MCHC RDW Plt Count MPV Neut % (Auto) Lymph % (Auto) [place] % (Auto) Eos % (Auto) Baso % (Auto) Neut # Lymph # [place] # Eos # Baso # Neutrophils % (Manual) Lymphocytes % (Manual) Monocytes % (Manual) Platelet Estimate Large Platelets Hypochromasia (manual) Poikilocytosis (manual Anisocytosis (manual) Microcytosis (manual) Macrocytosis (manual) Tear Drop Cells Ovalocytes PT 13.0 H INR 1.2 APTT Puncture Site pCO2 pO2 HCO3 ABG pH ABG Total CO2 ABG O2 Saturation ABG Base Excess ABG Hemoglobin ABG Carboxyhemoglobin POC ABG HHb (Measured) ABG Methemoglobin Uriel Test ABG Potassium A-a O2 Difference Respiratory Index Hgb O2 Saturation Glucose Lactate Vent Mode Mechanical Rate FiO2 Tidal Volume PEEP Crit Value Called To Crit Value Called By Crit Value Read Back Blood Gas Notified Time Sodium Potassium Chloride Carbon Dioxide Anion Gap BUN Creatinine Est GFR ( Amer) Est GFR (Non-Af Amer) POC Glucose (mg/dL) 285 H Random Glucose Calcium Phosphorus Magnesium 1.9 Total Bilirubin AST ALT Alkaline Phosphatase Total Creatine Kinase CK-MB (Mass) Troponin I, Quant Total Protein Albumin Albumin (PEP) Globulin Albumin/Globulin Ratio Ladwa-2-Toarddlwh Gjjbc-6-Pvbudwoij Pnrp-9-Stnxpcen Lfke-5-Qlmnefxi Gamma Globulins Abnorm Protein Band 1 Abnorm Protein Band 2 Abnorm Protein Band 3 Arterial Blood Potassium Urine Color Urine Clarity Urine pH Ur Specific [place] Urine Protein Urine Glucose (UA) Urine Ketones Urine Blood Urine Nitrate Urine Bilirubin Urine Urobilinogen Ur Leukocyte Esterase Urine WBC (Auto) Urine RBC (Auto) Urine WBC Clumps (Auto) Ur Squamous Epith Cells Urine Bacteria FLORENCIO & SPEP Interp 08/10/17 08/10/17 08/10/17 07:26 07:26 07:26 WBC 15.7 H RBC 4.42 Hgb 10.0 L Hct 31.9 L MCV 72.2 L MCH 22.6 L MCHC 31.3 L RDW 20.0 H Plt Count 406 H MPV 9.1 Neut % (Auto) 90.3 H Lymph % (Auto) 5.2 L [place] % (Auto) 4.1 Eos % (Auto) 0.1 Baso % (Auto) 0.3 Neut # 14.2 H Lymph # 0.8 L [place] # 0.6 Eos # 0.0 Baso # 0.0 Neutrophils % (Manual) 91 H Lymphocytes % (Manual) 6 L Monocytes % (Manual) 3 Platelet Estimate Normal Large Platelets Present Hypochromasia (manual) Slight Poikilocytosis (manual Slight Anisocytosis (manual) Slight Microcytosis (manual) Slight Macrocytosis (manual) Slight Tear Drop Cells Slight Ovalocytes Slight PT INR APTT 75 H D Puncture Site pCO2 pO2 HCO3 ABG pH ABG Total CO2 ABG O2 Saturation ABG Base Excess ABG Hemoglobin ABG Carboxyhemoglobin POC ABG HHb (Measured) ABG Methemoglobin Uriel Test ABG Potassium A-a O2 Difference Respiratory Index Hgb O2 Saturation Glucose Lactate Vent Mode Mechanical Rate FiO2 Tidal Volume PEEP Crit Value Called To Crit Value Called By Crit Value Read Back Blood Gas Notified Time Sodium 142 Potassium 3.9 Chloride 106 Carbon Dioxide 20 L Anion Gap 20 BUN 45 H Creatinine 2.3 H Est GFR ( Amer) 34 Est GFR (Non-Af Amer) 28 POC Glucose (mg/dL) Random Glucose 271 H Calcium 8.6 Phosphorus Magnesium Total Bilirubin 0.7 AST 27 ALT 29 Alkaline Phosphatase 109 Total Creatine Kinase CK-MB (Mass) Troponin I, Quant Total Protein 7.3 Albumin 3.8 Albumin (PEP) Globulin 3.6 Albumin/Globulin Ratio 1.1 Kewzp-5-Zwtooivvz Zwkcb-8-Dgcgwyisu Bdeb-8-Dwrfeqkb Fayx-5-Jzugliol Gamma Globulins Abnorm Protein Band 1 Abnorm Protein Band 2 Abnorm Protein Band 3 Arterial Blood Potassium Urine Color Urine Clarity Urine pH Ur Specific [place] Urine Protein Urine Glucose (UA) Urine Ketones Urine Blood Urine Nitrate Urine Bilirubin Urine Urobilinogen Ur Leukocyte Esterase Urine WBC (Auto) Urine RBC (Auto) Urine WBC Clumps (Auto) Ur Squamous Epith Cells Urine Bacteria FLORENCIO & SPEP Interp 08/10/17 08/10/17 08/10/17 13:30 13:34 13:50 WBC 21.0 H RBC 4.30 L Hgb 9.5 L Hct 32.2 L MCV 74.9 L D MCH 22.1 L MCHC 29.5 L RDW 20.8 H Plt Count 413 H MPV 9.8 Neut % (Auto) 80.5 H Lymph % (Auto) 13.7 L [place] % (Auto) 4.2 Eos % (Auto) 0.6 Baso % (Auto) 1.0 Neut # 16.9 H Lymph # 2.9 [place] # 0.9 H Eos # 0.1 Baso # 0.2 Neutrophils % (Manual) Lymphocytes % (Manual) Monocytes % (Manual) Platelet Estimate Large Platelets Hypochromasia (manual) Poikilocytosis (manual Anisocytosis (manual) Microcytosis (manual) Macrocytosis (manual) Tear Drop Cells Ovalocytes PT INR APTT Puncture Site Rf pCO2 57 H pO2 44 L* HCO3 12.1 L ABG pH 7.05 L* ABG Total CO2 17.5 L ABG O2 Saturation 67.2 L ABG Base Excess -15.0 L ABG Hemoglobin ABG Carboxyhemoglobin POC ABG HHb (Measured) ABG Methemoglobin Uriel Test Na ABG Potassium 3.0 L A-a O2 Difference 598.0 Respiratory Index 13.6 Hgb O2 Saturation Glucose 458 H* Lactate 7.2 H* Vent Mode A/c Mechanical Rate 22 FiO2 100.0 Tidal Volume 550 PEEP 5 Crit Value Called To Dr larson Crit Value Called By Giovanna costello program aide Crit Value Read Back Y Blood Gas Notified Time 1335 Sodium 143.0 Potassium Chloride 108.0 H Carbon Dioxide Anion Gap BUN Creatinine Est GFR ( Amer) Est GFR (Non-Af Amer) POC Glucose (mg/dL) Random Glucose Calcium Phosphorus 8.8 H Magnesium 2.3 Total Bilirubin AST ALT Alkaline Phosphatase Total Creatine Kinase CK-MB (Mass) Troponin I, Quant Total Protein Albumin Albumin (PEP) Globulin Albumin/Globulin Ratio Mvbru-4-Bwytjocwf Dswxn-1-Rhzayndws Dkyr-8-Lbakjmom Nimx-9-Nhjjhexf Gamma Globulins Abnorm Protein Band 1 Abnorm Protein Band 2 Abnorm Protein Band 3 Arterial Blood Potassium 3.0 L Urine Color Urine Clarity Urine pH Ur Specific [place] Urine Protein Urine Glucose (UA) Urine Ketones Urine Blood Urine Nitrate Urine Bilirubin Urine Urobilinogen Ur Leukocyte Esterase Urine WBC (Auto) Urine RBC (Auto) Urine WBC Clumps (Auto) Ur Squamous Epith Cells Urine Bacteria FLORENCIO & SPEP Interp 08/10/17 08/10/17 08/10/17 13:50 15:40 15:42 WBC RBC Hgb Hct MCV MCH MCHC RDW Plt Count MPV Neut % (Auto) Lymph % (Auto) [place] % (Auto) Eos % (Auto) Baso % (Auto) Neut # Lymph # [place] # Eos # Baso # Neutrophils % (Manual) Lymphocytes % (Manual) Monocytes % (Manual) Platelet Estimate Large Platelets Hypochromasia (manual) Poikilocytosis (manual Anisocytosis (manual) Microcytosis (manual) Macrocytosis (manual) Tear Drop Cells Ovalocytes PT INR APTT Puncture Site Rba pCO2 29 L pO2 53 L HCO3 23.7 ABG pH 7.48 H ABG Total CO2 22.5 ABG O2 Saturation 93.6 L ABG Base Excess -1.4 ABG Hemoglobin 8.8 L ABG Carboxyhemoglobin 2.4 H POC ABG HHb (Measured) 6.2 H ABG Methemoglobin 0.4 Uriel Test Pos ABG Potassium A-a O2 Difference 624.0 Respiratory Index 11.8 Hgb O2 Saturation 90.9 L Glucose Lactate Vent Mode Prvc Mechanical Rate 25 FiO2 100.0 Tidal Volume 550 PEEP 5 Crit Value Called To Crit Value Called By Crit Value Read Back Blood Gas Notified Time Sodium 143 Potassium 3.6 Chloride 101 Carbon Dioxide 18 L Anion Gap 28 H BUN 45 H Creatinine 2.6 H Est GFR ( Amer) 29 Est GFR (Non-Af Amer) 24 POC Glucose (mg/dL) Random Glucose 463 H* D Calcium 9.5 Phosphorus Magnesium Total Bilirubin 0.7 AST 189 H D ALT 165 H D Alkaline Phosphatase 115 Total Creatine Kinase 324 H CK-MB (Mass) 7.41 H Troponin I, Quant 0.6470 H* Total Protein 6.3 Albumin 3.3 L Albumin (PEP) Globulin 3.1 Albumin/Globulin Ratio 1.1 Vopay-4-Fwqkcjmew Vmtbh-7-Siqzolomx Lidl-1-Mhtvqgsz Axou-9-Paupitga Gamma Globulins Abnorm Protein Band 1 Abnorm Protein Band 2 Abnorm Protein Band 3 Arterial Blood Potassium Urine Color Yellow Urine Clarity Hazy Urine pH 5.0 Ur Specific [place] 1.017 Urine Protein 2+ H Urine Glucose (UA) 1+ H Urine Ketones Negative Urine Blood Negative Urine Nitrate Negative Urine Bilirubin Negative Urine Urobilinogen Normal Ur Leukocyte Esterase 1+ H Urine WBC (Auto) 24 H Urine RBC (Auto) 3 Urine WBC Clumps (Auto) Few H Ur Squamous Epith Cells < 1 Urine Bacteria Rare FLORENCIO & SPEP Interp Assessment & Plan (1) Pneumonia Status: Acute (2) History of DVT (deep vein thrombosis) Status: Acute (3) CKD (chronic kidney disease) Status: Acute Attending/Attestation - Attestation I have personally seen and examined this patient.: Yes I have fully participated in the care of the patient.: Yes I have reviewed all pertinent clinical information: Yes Notes (Text): 08/10/17 17:47 Patient seen and examined. 77-year-old male transferred to ICU status post resuscitation for cardiac arrest/asystole Responded to CPR with return of circulation On ventilatory support [place] frothy secretions from ET tube and chest x-ray consistent with pulmonary edema Started on Tridil drip and Lasix Continue heparin drip CT of head negative for bleed Moving extremities Follow-up ABG and chest x-ray Continue antibiotics for pneumonia Possible cardiac cath once stable Monitor renal function and output
[2017-08-10] MEDS: Acetylcysteine 20% Inhal Soln (4ml) PO SCH (17:33)
[2017-08-10 21:30] LABS: BILIRUBIN,TOTAL 0.7 mg/dL (0.2-1.3); TOTAL PROTEIN 6.1 g/dL (6.3-8.3)
[2017-08-10 21:31] LABS: CALCIUM 8.6 mg/dl (8.6-10.4)
--- NOTE | 2017-08-10 23:41 | CP.PCM.PN ---
Subjective - Date & Time of Evaluation Date of Evaluation: 08/10/17 Time of Evaluation: 18:10 - Subjective Subjective: Patient seen and evaluated S/P Code blue Intubated will monitor Physical Examination - Head Exam Head Exam: ATRAUMATIC, NORMAL INSPECTION - Eye Exam Eye Exam: PERRLA - ENT Exam ENT Exam: Mucous Membranes Moist - Neck Exam Neck Exam: JVD + - Respiratory Exam Respiratory Exam: Clear to Ausculation Bilateral, NORMAL BREATHING PATTERN - Cardiovascular Exam Cardiovascular Exam: +S1, +S2 - GI/Abdominal Exam GI & Abdominal Exam: Soft, Normal Bowel Sounds - Extremities Exam Extremities Exam: Intubated - Neurological Exam Neurological Exam: Intubated and sedated - Skin Skin Exam: Warm Objective - Vital Signs/Intake and Output Vital Signs (last 24 hours): Temp Pulse Resp BP Pulse Ox 98.2 F 78 18 88/41 L 98 08/10/17 20:00 08/10/17 23:18 08/10/17 23:18 08/10/17 23:18 08/10/17 23:18 Intake and Output: 08/10/17 08/11/17 18:59 06:59 Intake Total 336.5 85.1 Output Total 110 80 Balance 226.5 5.1 - Medications Medications: Current Medications Acetylcysteine (Acetylcysteine 20%) 3 ml PO Q12H [facility] Last Admin: 08/10/17 17:33 Dose: Not Given Aspirin (Ecotrin) 81 mg PO DAILY [facility] Last Admin: 08/10/17 10:27 Dose: 81 mg Docusate Sodium (Colace) 100 mg PO TID [facility] Last Admin: 08/10/17 17:32 Dose: 100 mg Famotidine (Pepcid) 20 mg PO DAILY [facility] Last Admin: 08/10/17 10:25 Dose: 20 mg Ferric Sodium Gluconate Complex (Ferrlecit) 125 mg IVPB DAILY [facility] Stop: 08/16/17 10:01 Last Admin: 08/10/17 10:26 Dose: 125 mg Furosemide (Lasix) 20 mg IVP DAILY [facility] Last Admin: 08/09/17 09:03 Dose: 20 mg Ceftriaxone Sodium (Rocephin Iv 1 Gm Duplex) 50 mls @ 100 mls/hr IVPB DAILY [facility] Last Admin: 08/10/17 10:30 Dose: 100 mls/hr Azithromycin 500 mg/ Sodium (Chloride) 250 mls @ 167 mls/hr IVPB Q24H [facility] Last Admin: 08/10/17 10:28 Dose: 167 mls/hr Heparin Sodium/Sodium Chloride (Heparin 73488 Units/250ml 1/2 Normal Saline) 25 ,000 units in 250 mls @ 11.376 mls/hr IV .[id number] PRN; Protocol; 12 UNITS/KG/HR PRN Reason: PROTOCOL Last Admin: 08/10/17 14:00 Dose: 16.66 units/kg/hr, 15.794 mls/hr Nitroglycerin/Dextrose (Nitroglycerin 50 Mg/250 Ml D5w) 50 mg in 250 mls @ 7.5 mls/hr IV .Q24H [facility]; 25 MCG/MIN PRN Reason: Protocol Last Titration: 08/10/17 23:38 Dose: 0 mcg/min, 0 mls/hr Insulin Aspart (Novolog) 0 unit SC Q6H [facility] PRN Reason: Protocol Ipratropium [place] (Atrovent) 0.5 mg IH RQ6 PRN PRN Reason: Shortness of Breath Last Admin: 08/10/17 01:37 Dose: 0.5 mg Lorazepam (Ativan) 1 mg IVP Q2H PRN PRN Reason: Agitation Last Admin: 08/10/17 21:00 Dose: 1 mg Metoprolol Succinate (Toprol Xl) 50 mg PO DAILY [facility] Last Admin: 08/10/17 10:27 Dose: 50 mg Nifedipine (Procardia Xl) 90 mg PO DAILY [facility] Last Admin: 08/10/17 10:27 Dose: 90 mg Rosuvastatin Calcium (Crestor) 10 mg PO HS [facility] Last Admin: 08/10/17 22:15 Dose: 10 mg Saccharomyces Boulardii (Florastor) 250 mg PO BID [facility] Last Admin: 08/10/17 19:00 Dose: 250 mg - Labs Labs: 08/10/17 13:50 08/10/17 21:14 PT 13.0 SECONDS (9.7-12.2) H 08/09/17 23:23 INR 1.2 08/09/17 23:23 APTT 65 SECONDS (21-34) H D 08/10/17 21:14 Assessment and Plan - Assessment and Plan (Free Text) Assessment: (1) S/P Code Blue Intubated and sedated Likely secondary to Pulmonary Edema (2) CHF exacerbation Assessment and Plan: Continue IV Lasix Check ECHO S/P AICD (3) Pneumonia Assessment and Plan: Afebrile, mild leukocytosis on Admission. Hx of productive cough for almost 2 weeks. CXR findings of left basilar consolidation and left pleural effusion Rocephin and Azithromycin given in the ED Will begin Rocephin and Azithromycin Q24 Start Florastor as well F/U Rapid strep, Influenza A and B studies, Urine Legionella, Mycoplasma studies F/U consult to Dr. Mena (Pulm) Status: Acute (4) CAD (coronary artery disease) Assessment and Plan: Hx of PCI (5) HTN (hypertension) Assessment and Plan: On Metoprolol, Procardia and Cozaar. (Hold parameters in place) Cont to monitor Status: Chronic (6) CKD (chronic kidney disease) Assessment and Plan: Hx of CKD GFR 45 which appears to be aroudn baseline F/U Dr. Miranda recommendations Status: Acute (7) Diabetes mellitus Assessment and Plan: Accuchecks ISS- High Dose F/U A1c Hold home medications at this time Status: Chronic (8) HLD (hyperlipidemia) Assessment and Plan: F/U lipid panel On Crestor 10 mg Po HS Dietary counseling enforced Status: Chronic (9) Constipation Assessment and Plan: Colace 100 mg PO TID until 18:00PM on 08/07/17. If patient has not had a stool, will add on Dulcolax. Status: Chronic (10) Anemia Assessment and Plan: Likely iron deficiency anemia based on prior admissions Iron Studies. F/U Ferritin, Iron, TIBC, % Saturation Monitor Hgb/Hct Status: Chronic (11) History of DVT (deep vein thrombosis) Assessment and Plan: Patient was previously on Eliquis for a prior history of DVT. At this time, will not initiate. Will rather start heparin drip in anticipation for cath procedure. Status: Acute (12) Prophylactic measure Assessment and Plan: Protonix 40 mg PO daily On Heparin Drip in anticipation for cardiac cath- Will f/u with Dr. Cortés as to when Status: Acute
[2017-08-11] MEDS: (Novolog) Insulin Aspart, Recombinant 100 u/ml 10 ml vial SC SCH ×4 (00:33→17:36)
[2017-08-11] MEDS: Acetylcysteine 20% Inhal Soln (4ml) PO SCH ×2 (01:00→13:26)
[2017-08-11] MEDS: Heparin25000 units/250ml 1/2NS 25,000 UNITS/250 ML BAG IV PRN (05:30)
[2017-08-11 05:47] LABS: BASO # 0.1 K/uL (0.0-0.2); BASO % 0.3 % (0.0-2.0); EOS % 0.1 % (0.0-4.0); HEMATOCRIT 28.2 % (35.0-51.0); LYMPH # 0.9 K/uL (1.0-4.3); LYMPH % 5.8 % (20.0-40.0); MEAN CELL VOLUME 71.9 fL (80.0-94.0); MEAN CORPUSCULAR HEMOGLOBIN 22.6 pg (27.0-31.0); MEAN CORPUSCULAR HGB CONC 31.4 g/dL (33.0-37.0); MEAN PLATELET VOLUME 9.5 fL (7.2-11.7); MONO # 0.7 K/uL (0.0-0.8); MONO % 4.2 % (0.0-10.0); NRBC % 0.1 % (0.0-2.0); PLATELET COUNT 302 K/uL (130-400); RED CELL DISTRIBUTION WIDTH 19.9 % (11.5-14.5); WHITE BLOOD COUNT 15.7 K/uL (4.8-10.8)
[2017-08-11 05:58] LABS: ABG ALLEN TEST POS; ABG MECHANICAL RATE 18; ARTERIAL BLOOD GAS MODE PRVC; ARTERIAL BLOOD HGB O2 SAT 90.7 % (95.0-98.0); ATERIAL BLOOD GAS PEEP 5; DRAW SITE RR; HHB 6.3 % (0.0-5.0); METHEMOGLOBIN 0.9 % (0.0-3.0)
[2017-08-11 06:04] LABS: BILIRUBIN,TOTAL 0.6 mg/dL (0.2-1.3); CALCIUM 8.6 mg/dl (8.6-10.4); POTASSIUM 3.6 mmol/L (3.6-5.2); TOTAL PROTEIN 6.1 g/dL (6.3-8.3)
[2017-08-11] MEDS: Ipratropium 0.02% Inhal Soln (0.5 mg/2.5 ml) UD IH PRN (07:35)
[2017-08-11 08:28] LABS: EOSINOPHIL 1 % (0-4); NUCLEATED RED BLOOD CELL 1 % (0-0); TOTAL CELLS COUNTED 100
[2017-08-11 08:29] LABS: NEUTROPHIL 84 % (50-75)
--- NOTE | 2017-08-11 09:56 | RAD ---
Chest x-ray single frontal view History: Intubated. Comparison: 08/10/2017 Findings: NG tube extending into the stomach. Endotracheal tube extending into the mid thoracic trachea. Left-sided pacemaker. Multiple overlying external wires and tubing. Moderate to severe venous congestion with prominent confluent airspace opacities in the mid to lower lung zones with associated small to moderate bilateral pleural effusions. Scattered nodular densities in both lungs. Cardiomegaly. Degenerative changes in the spine and shoulders. Impression: NG tube extending into the stomach. Endotracheal tube extending into the mid thoracic trachea. Left-sided pacemaker. Multiple overlying external wires and tubing. Moderate to severe venous congestion with prominent confluent airspace opacities in the mid to lower lung zones with associated small to moderate bilateral pleural effusions. Scattered nodular densities in both lungs. Cardiomegaly.
--- NOTE | 2017-08-11 10:21 | CP.PCM.PN ---
Subjective - Date & Time of Evaluation Date of Evaluation: 08/11/17 Time of Evaluation: 10:19 - Subjective Subjective: events noted now on vent post respiratory arrest UO poor despite lasix creat increased to 3.1 CXR with CHF pattern obtunded Objective - Vital Signs/Intake and Output Vital Signs (last 24 hours): Temp Pulse Resp BP Pulse Ox 101.4 F H 101 H 18 116/65 96 08/11/17 08:00 08/11/17 07:00 08/11/17 07:00 08/11/17 06:59 08/11/17 07:00 Intake and Output: 08/11/17 08/11/17 06:59 18:59 Intake Total 511.7 42.3 Output Total 225 30 Balance 286.7 12.3 - Medications Medications: Current Medications Acetylcysteine (Acetylcysteine 20%) 3 ml PO Q12H [facility] Last Admin: 08/11/17 01:00 Dose: 3 ml Aspirin (Ecotrin) 81 mg PO DAILY [facility] Last Admin: 08/10/17 10:27 Dose: 81 mg Docusate Sodium (Colace) 100 mg PO TID [facility] Last Admin: 08/10/17 17:32 Dose: 100 mg Famotidine (Pepcid) 20 mg PO DAILY [facility] Last Admin: 08/10/17 10:25 Dose: 20 mg Ferric Sodium Gluconate Complex (Ferrlecit) 125 mg IVPB DAILY [facility] Stop: 08/16/17 10:01 Last Admin: 08/10/17 10:26 Dose: 125 mg Furosemide (Lasix) 20 mg IVP DAILY [facility] Last Admin: 08/09/17 09:03 Dose: 20 mg Ceftriaxone Sodium (Rocephin Iv 1 Gm Duplex) 50 mls @ 100 mls/hr IVPB DAILY [facility] Last Admin: 08/10/17 10:30 Dose: 100 mls/hr Azithromycin 500 mg/ Sodium (Chloride) 250 mls @ 167 mls/hr IVPB Q24H [facility] Last Admin: 08/10/17 10:28 Dose: 167 mls/hr Heparin Sodium/Sodium Chloride (Heparin 52690 Units/250ml 1/2 Normal Saline) 25 ,000 units in 250 mls @ 11.376 mls/hr IV .[id number] PRN; Protocol; 12 UNITS/KG/HR PRN Reason: PROTOCOL Last Titration: 08/11/17 08:26 Dose: 12.5 units/kg/hr, 11.85 mls/hr Nitroglycerin/Dextrose (Nitroglycerin 50 Mg/250 Ml D5w) 50 mg in 250 mls @ 7.5 mls/hr IV .Q24H [facility]; 25 MCG/MIN PRN Reason: Protocol Last Titration: 08/11/17 03:15 Dose: 5 mcg/min, 1.5 mls/hr Insulin Aspart (Novolog) 0 unit SC Q6H [facility] PRN Reason: Protocol Last Admin: 08/11/17 05:32 Dose: Not Given Ipratropium [place] (Atrovent) 0.5 mg IH RQ6 PRN PRN Reason: Shortness of Breath Last Admin: 08/10/17 01:37 Dose: 0.5 mg Lorazepam (Ativan) 1 mg IVP Q2H PRN PRN Reason: Agitation Last Admin: 08/11/17 00:35 Dose: 1 mg Metoprolol Succinate (Toprol Xl) 50 mg PO DAILY [facility] Last Admin: 08/10/17 10:27 Dose: 50 mg Nifedipine (Procardia Xl) 90 mg PO DAILY [facility] Last Admin: 08/10/17 10:27 Dose: 90 mg Rosuvastatin Calcium (Crestor) 10 mg PO HS [facility] Last Admin: 08/10/17 22:15 Dose: 10 mg Saccharomyces Boulardii (Florastor) 250 mg PO BID [facility] Last Admin: 08/10/17 19:00 Dose: 250 mg - Labs Labs: 08/11/17 05:43 08/11/17 05:43 PT 13.0 SECONDS (9.7-12.2) H 08/09/17 23:23 INR 1.2 08/09/17 23:23 APTT 126 SECONDS (21-34) H* D 08/11/17 05:43 - Constitutional Appears: In Acute Distress, Chronically Ill - Head Exam Head Exam: ATRAUMATIC, NORMAL INSPECTION - Eye Exam Eye Exam: EOMI, Normal appearance - Neck Exam Neck Exam: Normal Inspection. absent: Tenderness - Respiratory Exam Respiratory Exam: Rales, Respiratory Distress - Cardiovascular Exam Cardiovascular Exam: Tachycardia, +S1 - GI/Abdominal Exam GI & Abdominal Exam: Soft. absent: Tenderness - Extremities Exam Extremities Exam: Normal Inspection. absent: Tenderness - Neurological Exam Neurological Exam: Altered - Skin Skin Exam: Dry, Warm Assessment and Plan (1) Acute on chronic renal failure Status: Acute (2) CAD (coronary artery disease) Status: Acute (3) CHF exacerbation Status: Chronic (4) Type 2 diabetes mellitus with diabetic nephropathy Status: Acute (5) CKD stage 4 due to type 2 diabetes mellitus Status: Acute - Assessment and Plan (Free Text) Plan: Increase IV lasix monitor chemistries
[2017-08-11] MEDS: cefTRIAXone IV 1 gm in Dextros 50 ML IVPB SCH ×2 (10:30→10:54)
[2017-08-11] MEDS: Ferric Sodium Gluconat Complex 62.5 mg/5 ml Vial IVPB SCH (10:54)
[2017-08-11] MEDS: Saccharomyces Boulardi 250 mg Cap PO SCH ×2 (10:54→17:29)
[2017-08-11] MEDS: Metoprolol Succinate 50 mg XL Tab PO SCH (10:55)
[2017-08-11] MEDS: NIFEdipine 90 mg ER Tab PO SCH (10:55)
--- NOTE | 2017-08-11 11:30 | CP.CCUPN ---
<Anton Moore - Last Filed: 08/11/17 19:56> CCU Subjective - Physician Review Subjective (Free Text): Patient seen and examined at bedside. Moving all extremities, non-response to commands. Intubated on ventilatory support FiO2 100%. ROS unobtainable at this time. 08/11/17 19:57 CCU Objective - Vital Signs / Intake & Output Vital Signs (Last 4 hours): Vital Signs Temp 08/11/17 08:00 101.4 F H Intake and Output (Last 8hrs): Intake & Output 08/10/17 08/11/17 08/11/17 22:59 06:59 14:59 Intake Total 137.7 443.2 42.3 Output Total 150 165 30 Balance -12.3 278.2 12.3 Weight 291 lb 0.163 oz Intake: IV 0 250 25 Intake, IV Amount 137.7 133.2 17.3 Right Femoral 11.3 6.8 1.5 Right Medial Port Femoral 126.4 126.4 15.8 Oral 0 Other 60 Output: Urine 150 165 30 Urethral (Sanchez) 150 165 30 Other: # Bowel Movements 0 0 - Physical Exam Pupils: Positive for: Sluggish Respiratory/Chest: Positive for: Other (on vent) Cardiovascular: Positive for: Regular Rate and Rhythm, Normal S1, S2 Abdomen: Positive for: Normal Bowel Sounds - Medications Active Medications: Active Medications Generic Name Dose Route Start Last Admin Trade Name Freq PRN Reason Stop Dose Admin Acetylcysteine 3 ml 08/09/17 00:18 08/11/17 01:00 Acetylcysteine 20% PO 3 ml Q12H LUIS FERNANDO Administration Aspirin 81 mg 08/07/17 10:00 08/11/17 10:53 Ecotrin PO 81 mg DAILY LUIS FERNANDO Administration Docusate Sodium 100 mg 08/06/17 20:04 08/11/17 10:53 Colace PO 100 mg TID LUIS FERNANDO Administration Famotidine 20 mg 08/09/17 10:00 08/11/17 10:53 Pepcid PO 20 mg DAILY LUIS FERNANDO Administration Ferric Sodium Gluconate Complex 125 mg 08/08/17 10:00 08/11/17 10:54 Ferrlecit IVPB 08/16/17 10:01 125 mg DAILY LUIS FERNANDO Administration Furosemide 20 mg 08/08/17 10:00 08/09/17 09:03 Lasix IVP 20 mg DAILY LUIS FERNANDO Administration Furosemide 60 mg 08/11/17 10:30 Lasix IVP Q12 LUIS FERNANDO Ceftriaxone Sodium 50 mls @ 100 mls/hr 08/07/17 10:00 08/11/17 10:54 Rocephin Iv 1 Gm Duplex IVPB 100 mls/hr DAILY LUIS FERNANDO Administration Azithromycin 500 mg/ Sodium 250 mls @ 167 mls/hr 08/07/17 10:00 08/10/17 10: 28 Chloride IVPB 167 mls/hr Q24H LUIS FERNANDO Administration Heparin Sodium/Sodium Chloride 25,000 units in 250 mls @ 11.376 mls/hr 15:00 08/11/17 08:26 Heparin 00028 Units/250ml 1/2 Normal Saline IV 12.5 units/kg/hr .[id number] PRN 11.85 mls/hr PROTOCOL Titration Protocol 12 UNITS/KG/HR Nitroglycerin/Dextrose 50 mg in 250 mls @ 7.5 mls/hr 08/10/17 13:45 08/11/17 03:15 Nitroglycerin 50 Mg/250 Ml D5w IV 5 mcg/min .Q24H LUIS FERNANDO 1.5 mls/hr Protocol Titration 25 MCG/MIN Insulin Aspart 0 unit 08/11/17 00:00 08/11/17 05:32 Novolog SC Not Given Q6H [facility] Protocol Ipratropium [place] 0.5 mg 08/07/17 08:47 08/10/17 01:37 Atrovent IH 0.5 mg RQ6 PRN Administration Shortness of Breath Lorazepam 1 mg 08/10/17 13:52 08/11/17 10:45 Ativan IVP 1 mg Q2H PRN Administration Agitation Metoprolol Succinate 50 mg 08/07/17 13:54 08/11/17 10:55 Toprol Xl PO Not Given DAILY LUIS FERNANDO Nifedipine 90 mg 08/07/17 10:00 08/11/17 10:55 Procardia Xl PO Not Given DAILY LUIS FERNANDO Rosuvastatin Calcium 10 mg 08/06/17 22:00 08/10/17 22:15 Crestor PO 10 mg HS LUIS FERNANDO Administration Saccharomyces Boulardii 250 mg 08/07/17 10:00 08/11/17 10:54 Florastor PO 250 mg BID LUIS FERNANDO Administration - Patient Studies Lab Studies: Microbiology Studies 08/06/17 15:30 Blood Culture - Preliminary Blood NO GROWTH AFTER 4 DAYS 08/06/17 15:30 Blood Culture - Preliminary Blood NO GROWTH AFTER 4 DAYS Lab Studies 08/11/17 08/11/17 08/11/17 Range/Units 05:43 05:43 05:43 WBC 15.7 H (4.8-10.8) K/uL RBC 3.93 L (4.40-5.90) Mil/uL Hgb 8.9 L (12.0-18.0) g/dL Hct 28.2 L (35.0-51.0) % MCV 71.9 L D (80.0-94.0) fL MCH 22.6 L (27.0-31.0) pg MCHC 31.4 L (33.0-37.0) g/dL RDW 19.9 H (11.5-14.5) % Plt Count 302 D (130-400) K/uL MPV 9.5 (7.2-11.7) fL Neut % (Auto) 89.6 H (50.0-75.0) % Lymph % (Auto) 5.8 L (20.0-40.0) % Garza % (Auto) 4.2 (0.0-10.0) % Eos % (Auto) 0.1 (0.0-4.0) % Baso % (Auto) 0.3 (0.0-2.0) % Neut # 14.0 H (1.8-7.0) K/uL Lymph # 0.9 L (1.0-4.3) K/uL Garza # 0.7 (0.0-0.8) K/uL Eos # 0.0 (0.0-0.7) K/uL Baso # 0.1 (0.0-0.2) K/uL Neutrophils % (Manual) 84 H (50-75) % Band Neutrophils % 1 (0-2) % Lymphocytes % (Manual) 7 L (20-40) % Monocytes % (Manual) 7 (0-10) % Eosinophils % (Manual) 1 (0-4) % Nucleated RBC % 1 H (0-0) % Platelet Estimate Normal (NORMAL) Polychromasia Slight Hypochromasia (manual) Slight Poikilocytosis (manual Slight Anisocytosis (manual) Slight Ovalocytes Slight APTT 126 H* D (21-34) SECONDS Puncture Site pCO2 (35-45) mm/Hg pO2 (80-100) mm/Hg HCO3 (21-28) mmol/L ABG pH (7.35-7.45) ABG Total CO2 (22-28) mmol/L ABG O2 Saturation (95-98) % ABG Base Excess (-2.0-3.0) mmol/L ABG Hemoglobin (11.7-17.4) g/dL ABG Carboxyhemoglobin (0.5-1.5) % POC ABG HHb (Measured) (0.0-5.0) % ABG Methemoglobin (0.0-3.0) % Uriel Test ABG Potassium (3.6-5.2) mmol/L A-a O2 Difference mm/Hg Respiratory Index Hgb O2 Saturation (95.0-98.0) % Sodium 143 (132-148) mmol/l Chloride 105 (98-107) mmol/L Glucose (75-110) mg/dl Lactate (0.7-2.1) mmol/L Vent Mode Mechanical Rate FiO2 % Tidal Volume PEEP Crit Value Called To Crit Value Called By Crit Value Read Back Blood Gas Notified Time Potassium 3.6 (3.6-5.2) mmol/L Carbon Dioxide 23 (22-30) mmol/L Anion Gap 19 (10-20) BUN 59 H (9-20) mg/dL Creatinine 3.1 H (0.8-1.5) MG/DL Est GFR ( Amer) 24 Est GFR (Non-Af Amer) 20 POC Glucose (mg/dL) (65-110) mg/dL Random Glucose 88 (75-110) mg/dL Calcium 8.6 (8.6-10.4) mg/dl Phosphorus (2.5-4.5) mg/dL Magnesium (1.6-2.3) mg/dL Total Bilirubin 0.6 (0.2-1.3) mg/dL AST 153 H D (17-59) U/L ALT 168 H (21-72) U/L Alkaline Phosphatase 98 (38-126) U/L Total Creatine Kinase (55-170) U/L CK-MB (Mass) (0.0-3.38) ng/mL Troponin I, Quant (0.00-0.120) ng/mL Total Protein 6.1 L (6.3-8.3) g/dL Albumin 3.0 L (3.5-5.0) g/dL Globulin 3.1 (2.2-3.9) gm/dL Albumin/Globulin Ratio 1.0 (1.0-2.1) Arterial Blood Potassium (3.6-5.2) mmol/L Urine Color (YELLOW) Urine Clarity (Clear) Urine pH (5.0-8.0) Ur Specific [place] (1.003-1.030) Urine Protein (NEGATIVE) mg/dL Urine Glucose (UA) (Normal) mg/dL Urine Ketones (NEGATIVE) mg/dL Urine Blood (NEGATIVE) Urine Nitrate (NEGATIVE) Urine Bilirubin (NEGATIVE) Urine Urobilinogen (0.2-1.0) mg/dL Ur Leukocyte Esterase (Negative) Francoise/uL Urine WBC (Auto) (0-5) /hpf Urine RBC (Auto) (0-3) /hpf Urine WBC Clumps (Auto) (NONE) /hpf Ur Squamous Epith Cells (0-5) /hpf Urine Bacteria (<OCC) [place]/Lambda Light Chain (()) Free [place] Light Chains (3.3-19.4) mg/L Free Lambda Light Chain (5.7-26.3) mg/L Free [place]/Lambda Ratio (0.26-1.65) M.pneumoniae IgG Titer (<=0.90) 08/11/17 08/11/17 08/11/17 Range/Units 05:17 05:05 00:10 WBC (4.8-10.8) K/uL RBC (4.40-5.90) Mil/uL Hgb (12.0-18.0) g/dL Hct (35.0-51.0) % MCV (80.0-94.0) fL MCH (27.0-31.0) pg MCHC (33.0-37.0) g/dL RDW (11.5-14.5) % Plt Count (130-400) K/uL MPV (7.2-11.7) fL Neut % (Auto) (50.0-75.0) % Lymph % (Auto) (20.0-40.0) % Garza % (Auto) (0.0-10.0) % Eos % (Auto) (0.0-4.0) % Baso % (Auto) (0.0-2.0) % Neut # (1.8-7.0) K/uL Lymph # (1.0-4.3) K/uL Garza # (0.0-0.8) K/uL Eos # (0.0-0.7) K/uL Baso # (0.0-0.2) K/uL Neutrophils % (Manual) (50-75) % Band Neutrophils % (0-2) % Lymphocytes % (Manual) (20-40) % Monocytes % (Manual) (0-10) % Eosinophils % (Manual) (0-4) % Nucleated RBC % (0-0) % Platelet Estimate (NORMAL) Polychromasia Hypochromasia (manual) Poikilocytosis (manual Anisocytosis (manual) Ovalocytes APTT (21-34) SECONDS Puncture Site Rr pCO2 39 (35-45) mm/Hg pO2 62 L (80-100) mm/Hg HCO3 24.9 (21-28) mmol/L ABG pH 7.41 (7.35-7.45) ABG Total CO2 25.9 (22-28) mmol/L ABG O2 Saturation 93.5 L (95-98) % ABG Base Excess 0.1 (-2.0-3.0) mmol/L ABG Hemoglobin 10.7 L (11.7-17.4) g/dL ABG Carboxyhemoglobin 2.0 H (0.5-1.5) % POC ABG HHb (Measured) 6.3 H (0.0-5.0) % ABG Methemoglobin 0.9 (0.0-3.0) % Uriel Test Pos ABG Potassium (3.6-5.2) mmol/L A-a O2 Difference 602.0 mm/Hg Respiratory Index 9.7 Hgb O2 Saturation 90.7 L (95.0-98.0) % Sodium (132-148) mmol/l Chloride (98-107) mmol/L Glucose (75-110) mg/dl Lactate (0.7-2.1) mmol/L Vent Mode Prvc Mechanical Rate 18 FiO2 100.0 % Tidal Volume 550 PEEP 5 Crit Value Called To Crit Value Called By Crit Value Read Back Blood Gas Notified Time Potassium (3.6-5.2) mmol/L Carbon Dioxide (22-30) mmol/L Anion Gap (10-20) BUN (9-20) mg/dL Creatinine (0.8-1.5) MG/DL Est GFR ( Amer) Est GFR (Non-Af Amer) POC Glucose (mg/dL) 105 204 H (65-110) mg/dL Random Glucose (75-110) mg/dL Calcium (8.6-10.4) mg/dl Phosphorus (2.5-4.5) mg/dL Magnesium (1.6-2.3) mg/dL Total Bilirubin (0.2-1.3) mg/dL AST (17-59) U/L ALT (21-72) U/L Alkaline Phosphatase (38-126) U/L Total Creatine Kinase (55-170) U/L CK-MB (Mass) (0.0-3.38) ng/mL Troponin I, Quant (0.00-0.120) ng/mL Total Protein (6.3-8.3) g/dL Albumin (3.5-5.0) g/dL Globulin (2.2-3.9) gm/dL Albumin/Globulin Ratio (1.0-2.1) Arterial Blood Potassium (3.6-5.2) mmol/L Urine Color (YELLOW) Urine Clarity (Clear) Urine pH (5.0-8.0) Ur Specific [place] (1.003-1.030) Urine Protein (NEGATIVE) mg/dL Urine Glucose (UA) (Normal) mg/dL Urine Ketones (NEGATIVE) mg/dL Urine Blood (NEGATIVE) Urine Nitrate (NEGATIVE) Urine Bilirubin (NEGATIVE) Urine Urobilinogen (0.2-1.0) mg/dL Ur Leukocyte Esterase (Negative) Francoise/uL Urine WBC (Auto) (0-5) /hpf Urine RBC (Auto) (0-3) /hpf Urine WBC Clumps (Auto) (NONE) /hpf Ur Squamous Epith Cells (0-5) /hpf Urine Bacteria (<OCC) [place]/Lambda Light Chain (()) Free [place] Light Chains (3.3-19.4) mg/L Free Lambda Light Chain (5.7-26.3) mg/L Free [place]/Lambda Ratio (0.26-1.65) M.pneumoniae IgG Titer (<=0.90) 08/10/17 08/10/17 08/10/17 Range/Units 21:14 21:14 18:12 WBC (4.8-10.8) K/uL RBC (4.40-5.90) Mil/uL Hgb (12.0-18.0) g/dL Hct (35.0-51.0) % MCV (80.0-94.0) fL MCH (27.0-31.0) pg MCHC (33.0-37.0) g/dL RDW (11.5-14.5) % Plt Count (130-400) K/uL MPV (7.2-11.7) fL Neut % (Auto) (50.0-75.0) % Lymph % (Auto) (20.0-40.0) % Garza % (Auto) (0.0-10.0) % Eos % (Auto) (0.0-4.0) % Baso % (Auto) (0.0-2.0) % Neut # (1.8-7.0) K/uL Lymph # (1.0-4.3) K/uL Garza # (0.0-0.8) K/uL Eos # (0.0-0.7) K/uL Baso # (0.0-0.2) K/uL Neutrophils % (Manual) (50-75) % Band Neutrophils % (0-2) % Lymphocytes % (Manual) (20-40) % Monocytes % (Manual) (0-10) % Eosinophils % (Manual) (0-4) % Nucleated RBC % (0-0) % Platelet Estimate (NORMAL) Polychromasia Hypochromasia (manual) Poikilocytosis (manual Anisocytosis (manual) Ovalocytes APTT 65 H D (21-34) SECONDS Puncture Site pCO2 (35-45) mm/Hg pO2 (80-100) mm/Hg HCO3 (21-28) mmol/L ABG pH (7.35-7.45) ABG Total CO2 (22-28) mmol/L ABG O2 Saturation (95-98) % ABG Base Excess (-2.0-3.0) mmol/L ABG Hemoglobin (11.7-17.4) g/dL ABG Carboxyhemoglobin (0.5-1.5) % POC ABG HHb (Measured) (0.0-5.0) % ABG Methemoglobin (0.0-3.0) % Uriel Test ABG Potassium (3.6-5.2) mmol/L A-a O2 Difference mm/Hg Respiratory Index Hgb O2 Saturation (95.0-98.0) % Sodium 141 (132-148) mmol/l Chloride 106 (98-107) mmol/L Glucose (75-110) mg/dl Lactate (0.7-2.1) mmol/L Vent Mode Mechanical Rate FiO2 % Tidal Volume PEEP Crit Value Called To Crit Value Called By Crit Value Read Back Blood Gas Notified Time Potassium 4.0 (3.6-5.2) mmol/L Carbon Dioxide 23 (22-30) mmol/L Anion Gap 17 (10-20) BUN 55 H (9-20) mg/dL Creatinine 2.7 H (0.8-1.5) MG/DL Est GFR ( Amer) 28 Est GFR (Non-Af Amer) 23 POC Glucose (mg/dL) 419 H* (65-110) mg/dL Random Glucose 336 H (75-110) mg/dL Calcium 8.6 (8.6-10.4) mg/dl Phosphorus (2.5-4.5) mg/dL Magnesium (1.6-2.3) mg/dL Total Bilirubin 0.7 (0.2-1.3) mg/dL AST 226 H (17-59) U/L ALT 206 H D (21-72) U/L Alkaline Phosphatase 108 (38-126) U/L Total Creatine Kinase (55-170) U/L CK-MB (Mass) (0.0-3.38) ng/mL Troponin I, Quant (0.00-0.120) ng/mL Total Protein 6.1 L (6.3-8.3) g/dL Albumin 3.1 L (3.5-5.0) g/dL Globulin 3.0 (2.2-3.9) gm/dL Albumin/Globulin Ratio 1.0 (1.0-2.1) Arterial Blood Potassium (3.6-5.2) mmol/L Urine Color (YELLOW) Urine Clarity (Clear) Urine pH (5.0-8.0) Ur Specific [place] (1.003-1.030) Urine Protein (NEGATIVE) mg/dL Urine Glucose (UA) (Normal) mg/dL Urine Ketones (NEGATIVE) mg/dL Urine Blood (NEGATIVE) Urine Nitrate (NEGATIVE) Urine Bilirubin (NEGATIVE) Urine Urobilinogen (0.2-1.0) mg/dL Ur Leukocyte Esterase (Negative) Francoise/uL Urine WBC (Auto) (0-5) /hpf Urine RBC (Auto) (0-3) /hpf Urine WBC Clumps (Auto) (NONE) /hpf Ur Squamous Epith Cells (0-5) /hpf Urine Bacteria (<OCC) [place]/Lambda Light Chain (()) Free [place] Light Chains (3.3-19.4) mg/L Free Lambda Light Chain (5.7-26.3) mg/L Free [place]/Lambda Ratio (0.26-1.65) M.pneumoniae IgG Titer (<=0.90) 08/10/17 08/10/17 08/10/17 Range/Units 15:42 15:40 13:50 WBC (4.8-10.8) K/uL RBC (4.40-5.90) Mil/uL Hgb (12.0-18.0) g/dL Hct (35.0-51.0) % MCV (80.0-94.0) fL MCH (27.0-31.0) pg MCHC (33.0-37.0) g/dL RDW (11.5-14.5) % Plt Count (130-400) K/uL MPV (7.2-11.7) fL Neut % (Auto) (50.0-75.0) % Lymph % (Auto) (20.0-40.0) % Garza % (Auto) (0.0-10.0) % Eos % (Auto) (0.0-4.0) % Baso % (Auto) (0.0-2.0) % Neut # (1.8-7.0) K/uL Lymph # (1.0-4.3) K/uL Garza # (0.0-0.8) K/uL Eos # (0.0-0.7) K/uL Baso # (0.0-0.2) K/uL Neutrophils % (Manual) (50-75) % Band Neutrophils % (0-2) % Lymphocytes % (Manual) (20-40) % Monocytes % (Manual) (0-10) % Eosinophils % (Manual) (0-4) % Nucleated RBC % (0-0) % Platelet Estimate (NORMAL) Polychromasia Hypochromasia (manual) Poikilocytosis (manual Anisocytosis (manual) Ovalocytes APTT (21-34) SECONDS Puncture Site Rba pCO2 29 L (35-45) mm/Hg pO2 53 L (80-100) mm/Hg HCO3 23.7 (21-28) mmol/L ABG pH 7.48 H (7.35-7.45) ABG Total CO2 22.5 (22-28) mmol/L ABG O2 Saturation 93.6 L (95-98) % ABG Base Excess -1.4 (-2.0-3.0) mmol/L ABG Hemoglobin 8.8 L (11.7-17.4) g/dL ABG Carboxyhemoglobin 2.4 H (0.5-1.5) % POC ABG HHb (Measured) 6.2 H (0.0-5.0) % ABG Methemoglobin 0.4 (0.0-3.0) % Uriel Test Pos ABG Potassium (3.6-5.2) mmol/L A-a O2 Difference 624.0 mm/Hg Respiratory Index 11.8 Hgb O2 Saturation 90.9 L (95.0-98.0) % Sodium 143 (132-148) mmol/l Chloride 101 (98-107) mmol/L Glucose (75-110) mg/dl Lactate (0.7-2.1) mmol/L Vent Mode Prvc Mechanical Rate 25 FiO2 100.0 % Tidal Volume 550 PEEP 5 Crit Value Called To Crit Value Called By Crit Value Read Back Blood Gas Notified Time Potassium 3.6 (3.6-5.2) mmol/L Carbon Dioxide 18 L (22-30) mmol/L Anion Gap 28 H (10-20) BUN 45 H (9-20) mg/dL Creatinine 2.6 H (0.8-1.5) MG/DL Est GFR ( Amer) 29 Est GFR (Non-Af Amer) 24 POC Glucose (mg/dL) (65-110) mg/dL Random Glucose 463 H* D (75-110) mg/dL Calcium 9.5 (8.6-10.4) mg/dl Phosphorus (2.5-4.5) mg/dL Magnesium (1.6-2.3) mg/dL Total Bilirubin 0.7 (0.2-1.3) mg/dL AST 189 H D (17-59) U/L ALT 165 H D (21-72) U/L Alkaline Phosphatase 115 (38-126) U/L Total Creatine Kinase 324 H (55-170) U/L CK-MB (Mass) 7.41 H (0.0-3.38) ng/mL Troponin I, Quant 0.6470 H* (0.00-0.120) ng/mL Total Protein 6.3 (6.3-8.3) g/dL Albumin 3.3 L (3.5-5.0) g/dL Globulin 3.1 (2.2-3.9) gm/dL Albumin/Globulin Ratio 1.1 (1.0-2.1) Arterial Blood Potassium (3.6-5.2) mmol/L Urine Color Yellow (YELLOW) Urine Clarity Hazy (Clear) Urine pH 5.0 (5.0-8.0) Ur Specific [place] 1.017 (1.003-1.030) Urine Protein 2+ H (NEGATIVE) mg/dL Urine Glucose (UA) 1+ H (Normal) mg/dL Urine Ketones Negative (NEGATIVE) mg/dL Urine Blood Negative (NEGATIVE) Urine Nitrate Negative (NEGATIVE) Urine Bilirubin Negative (NEGATIVE) Urine Urobilinogen Normal (0.2-1.0) mg/dL Ur Leukocyte Esterase 1+ H (Negative) Francoise/uL Urine WBC (Auto) 24 H (0-5) /hpf Urine RBC (Auto) 3 (0-3) /hpf Urine WBC Clumps (Auto) Few H (NONE) /hpf Ur Squamous Epith Cells < 1 (0-5) /hpf Urine Bacteria Rare (<OCC) [place]/Lambda Light Chain (()) Free [place] Light Chains (3.3-19.4) mg/L Free Lambda Light Chain (5.7-26.3) mg/L Free [place]/Lambda Ratio (0.26-1.65) M.pneumoniae IgG Titer (<=0.90) 08/10/17 08/10/17 08/10/17 Range/Units 13:50 13:34 13:30 WBC 21.0 H (4.8-10.8) K/uL RBC 4.30 L (4.40-5.90) Mil/uL Hgb 9.5 L (12.0-18.0) g/dL Hct 32.2 L (35.0-51.0) % MCV 74.9 L D (80.0-94.0) fL MCH 22.1 L (27.0-31.0) pg MCHC 29.5 L (33.0-37.0) g/dL RDW 20.8 H (11.5-14.5) % Plt Count 413 H (130-400) K/uL MPV 9.8 (7.2-11.7) fL Neut % (Auto) 80.5 H (50.0-75.0) % Lymph % (Auto) 13.7 L (20.0-40.0) % Garza % (Auto) 4.2 (0.0-10.0) % Eos % (Auto) 0.6 (0.0-4.0) % Baso % (Auto) 1.0 (0.0-2.0) % Neut # 16.9 H (1.8-7.0) K/uL Lymph # 2.9 (1.0-4.3) K/uL Garza # 0.9 H (0.0-0.8) K/uL Eos # 0.1 (0.0-0.7) K/uL Baso # 0.2 (0.0-0.2) K/uL Neutrophils % (Manual) (50-75) % Band Neutrophils % (0-2) % Lymphocytes % (Manual) (20-40) % Monocytes % (Manual) (0-10) % Eosinophils % (Manual) (0-4) % Nucleated RBC % (0-0) % Platelet Estimate (NORMAL) Polychromasia Hypochromasia (manual) Poikilocytosis (manual Anisocytosis (manual) Ovalocytes APTT (21-34) SECONDS Puncture Site Rf pCO2 57 H (35-45) mm/Hg pO2 44 L* (80-100) mm/Hg HCO3 12.1 L (21-28) mmol/L ABG pH 7.05 L* (7.35-7.45) ABG Total CO2 17.5 L (22-28) mmol/L ABG O2 Saturation 67.2 L (95-98) % ABG Base Excess -15.0 L (-2.0-3.0) mmol/L ABG Hemoglobin (11.7-17.4) g/dL ABG Carboxyhemoglobin (0.5-1.5) % POC ABG HHb (Measured) (0.0-5.0) % ABG Methemoglobin (0.0-3.0) % Uriel Test Na ABG Potassium 3.0 L (3.6-5.2) mmol/L A-a O2 Difference 598.0 mm/Hg Respiratory Index 13.6 Hgb O2 Saturation (95.0-98.0) % Sodium 143.0 (132-148) mmol/l Chloride 108.0 H (98-107) mmol/L Glucose 458 H* (75-110) mg/dl Lactate 7.2 H* (0.7-2.1) mmol/L Vent Mode A/c Mechanical Rate 22 FiO2 100.0 % Tidal Volume 550 PEEP 5 Crit Value Called To Dr larson Crit Value Called By Giovanna costello [employer]/maintenance specialist Crit Value Read Back Y Blood Gas Notified Time 1335 Potassium (3.6-5.2) mmol/L Carbon Dioxide (22-30) mmol/L Anion Gap (10-20) BUN (9-20) mg/dL Creatinine (0.8-1.5) MG/DL Est GFR ( Amer) Est GFR (Non-Af Amer) POC Glucose (mg/dL) (65-110) mg/dL Random Glucose (75-110) mg/dL Calcium (8.6-10.4) mg/dl Phosphorus 8.8 H (2.5-4.5) mg/dL Magnesium 2.3 (1.6-2.3) mg/dL Total Bilirubin (0.2-1.3) mg/dL AST (17-59) U/L ALT (21-72) U/L Alkaline Phosphatase (38-126) U/L Total Creatine Kinase (55-170) U/L CK-MB (Mass) (0.0-3.38) ng/mL Troponin I, Quant (0.00-0.120) ng/mL Total Protein (6.3-8.3) g/dL Albumin (3.5-5.0) g/dL Globulin (2.2-3.9) gm/dL Albumin/Globulin Ratio (1.0-2.1) Arterial Blood Potassium 3.0 L (3.6-5.2) mmol/L Urine Color (YELLOW) Urine Clarity (Clear) Urine pH (5.0-8.0) Ur Specific [place] (1.003-1.030) Urine Protein (NEGATIVE) mg/dL Urine Glucose (UA) (Normal) mg/dL Urine Ketones (NEGATIVE) mg/dL Urine Blood (NEGATIVE) Urine Nitrate (NEGATIVE) Urine Bilirubin (NEGATIVE) Urine Urobilinogen (0.2-1.0) mg/dL Ur Leukocyte Esterase (Negative) Francoise/uL Urine WBC (Auto) (0-5) /hpf Urine RBC (Auto) (0-3) /hpf Urine WBC Clumps (Auto) (NONE) /hpf Ur Squamous Epith Cells (0-5) /hpf Urine Bacteria (<OCC) [place]/Lambda Light Chain (()) Free [place] Light Chains (3.3-19.4) mg/L Free Lambda Light Chain (5.7-26.3) mg/L Free [place]/Lambda Ratio (0.26-1.65) M.pneumoniae IgG Titer (<=0.90) 08/08/17 08/06/17 Range/Units 07:11 21:00 WBC (4.8-10.8) K/uL RBC (4.40-5.90) Mil/uL Hgb (12.0-18.0) g/dL Hct (35.0-51.0) % MCV (80.0-94.0) fL MCH (27.0-31.0) pg MCHC (33.0-37.0) g/dL RDW (11.5-14.5) % Plt Count (130-400) K/uL MPV (7.2-11.7) fL Neut % (Auto) (50.0-75.0) % Lymph % (Auto) (20.0-40.0) % Garza % (Auto) (0.0-10.0) % Eos % (Auto) (0.0-4.0) % Baso % (Auto) (0.0-2.0) % Neut # (1.8-7.0) K/uL Lymph # (1.0-4.3) K/uL Garza # (0.0-0.8) K/uL Eos # (0.0-0.7) K/uL Baso # (0.0-0.2) K/uL Neutrophils % (Manual) (50-75) % Band Neutrophils % (0-2) % Lymphocytes % (Manual) (20-40) % Monocytes % (Manual) (0-10) % Eosinophils % (Manual) (0-4) % Nucleated RBC % (0-0) % Platelet Estimate (NORMAL) Polychromasia Hypochromasia (manual) Poikilocytosis (manual Anisocytosis (manual) Ovalocytes APTT (21-34) SECONDS Puncture Site pCO2 (35-45) mm/Hg pO2 (80-100) mm/Hg HCO3 (21-28) mmol/L ABG pH (7.35-7.45) ABG Total CO2 (22-28) mmol/L ABG O2 Saturation (95-98) % ABG Base Excess (-2.0-3.0) mmol/L ABG Hemoglobin (11.7-17.4) g/dL ABG Carboxyhemoglobin (0.5-1.5) % POC ABG HHb (Measured) (0.0-5.0) % ABG Methemoglobin (0.0-3.0) % Uriel Test ABG Potassium (3.6-5.2) mmol/L A-a O2 Difference mm/Hg Respiratory Index Hgb O2 Saturation (95.0-98.0) % Sodium (132-148) mmol/l Chloride (98-107) mmol/L Glucose (75-110) mg/dl Lactate (0.7-2.1) mmol/L Vent Mode Mechanical Rate FiO2 % Tidal Volume PEEP Crit Value Called To Crit Value Called By Crit Value Read Back Blood Gas Notified Time Potassium (3.6-5.2) mmol/L Carbon Dioxide (22-30) mmol/L Anion Gap (10-20) BUN (9-20) mg/dL Creatinine (0.8-1.5) MG/DL Est GFR ( Amer) Est GFR (Non-Af Amer) POC Glucose (mg/dL) (65-110) mg/dL Random Glucose (75-110) mg/dL Calcium (8.6-10.4) mg/dl Phosphorus (2.5-4.5) mg/dL Magnesium (1.6-2.3) mg/dL Total Bilirubin (0.2-1.3) mg/dL AST (17-59) U/L ALT (21-72) U/L Alkaline Phosphatase (38-126) U/L Total Creatine Kinase (55-170) U/L CK-MB (Mass) (0.0-3.38) ng/mL Troponin I, Quant (0.00-0.120) ng/mL Total Protein (6.3-8.3) g/dL Albumin (3.5-5.0) g/dL Globulin (2.2-3.9) gm/dL Albumin/Globulin Ratio (1.0-2.1) Arterial Blood Potassium (3.6-5.2) mmol/L Urine Color (YELLOW) Urine Clarity (Clear) Urine pH (5.0-8.0) Ur Specific [place] (1.003-1.030) Urine Protein (NEGATIVE) mg/dL Urine Glucose (UA) (Normal) mg/dL Urine Ketones (NEGATIVE) mg/dL Urine Blood (NEGATIVE) Urine Nitrate (NEGATIVE) Urine Bilirubin (NEGATIVE) Urine Urobilinogen (0.2-1.0) mg/dL Ur Leukocyte Esterase (Negative) Francoise/uL Urine WBC (Auto) (0-5) /hpf Urine RBC (Auto) (0-3) /hpf Urine WBC Clumps (Auto) (NONE) /hpf Ur Squamous Epith Cells (0-5) /hpf Urine Bacteria (<OCC) [place]/Lambda Light Chain (()) Free [place] Light Chains 86.0 H (3.3-19.4) mg/L Free [place] Light Chain 57.2 H (5.7-26.3) mg/L Free [place]/Lambda Ratio 1.50 (0.26-1.65) M.pneumoniae IgG Titer <=0.90 (<=0.90) Laboratory Results - last 24 hr 08/06/17 08/08/17 08/10/17 21:00 07:11 13:30 WBC RBC Hgb Hct MCV MCH MCHC RDW Plt Count MPV Neut % (Auto) Lymph % (Auto) Garza % (Auto) Eos % (Auto) Baso % (Auto) Neut # Lymph # Garza # Eos # Baso # Neutrophils % (Manual) Band Neutrophils % Lymphocytes % (Manual) Monocytes % (Manual) Eosinophils % (Manual) Nucleated RBC % Platelet Estimate Polychromasia Hypochromasia (manual) Poikilocytosis (manual Anisocytosis (manual) Ovalocytes APTT Puncture Site Rf pCO2 57 H pO2 44 L* HCO3 12.1 L ABG pH 7.05 L* ABG Total CO2 17.5 L ABG O2 Saturation 67.2 L ABG Base Excess -15.0 L ABG Hemoglobin ABG Carboxyhemoglobin POC ABG HHb (Measured) ABG Methemoglobin Uriel Test Na ABG Potassium 3.0 L A-a O2 Difference 598.0 Respiratory Index 13.6 Hgb O2 Saturation Sodium 143.0 Chloride 108.0 H Glucose 458 H* Lactate 7.2 H* Vent Mode A/c Mechanical Rate 22 FiO2 100.0 Tidal Volume 550 PEEP 5 Crit Value Called To Dr larson Crit Value Called By Giovanna [employer]/maintenance specialist Crit Value Read Back Y Blood Gas Notified Time 1335 Potassium Carbon Dioxide Anion Gap BUN Creatinine Est GFR ( Amer) Est GFR (Non-Af Amer) POC Glucose (mg/dL) Random Glucose Calcium Phosphorus Magnesium Total Bilirubin AST ALT Alkaline Phosphatase Total Creatine Kinase CK-MB (Mass) Troponin I, Quant Total Protein Albumin Globulin Albumin/Globulin Ratio Arterial Blood Potassium 3.0 L Urine Color Urine Clarity Urine pH Ur Specific [place] Urine Protein Urine Glucose (UA) Urine Ketones Urine Blood Urine Nitrate Urine Bilirubin Urine Urobilinogen Ur Leukocyte Esterase Urine WBC (Auto) Urine RBC (Auto) Urine WBC Clumps (Auto) Ur Squamous Epith Cells Urine Bacteria [place]/Lambda Light Chain Free [place] Light Chains 86.0 H Free Lambda Light Chain 57.2 H Free [place]/Lambda Ratio 1.50 M.pneumoniae IgG Titer <=0.90 08/10/17 08/10/17 08/10/17 13:34 13:50 13:50 WBC 21.0 H RBC 4.30 L Hgb 9.5 L Hct 32.2 L MCV 74.9 L D MCH 22.1 L MCHC 29.5 L RDW 20.8 H Plt Count 413 H MPV 9.8 Neut % (Auto) 80.5 H Lymph % (Auto) 13.7 L Garza % (Auto) 4.2 Eos % (Auto) 0.6 Baso % (Auto) 1.0 Neut # 16.9 H Lymph # 2.9 Garza # 0.9 H Eos # 0.1 Baso # 0.2 Neutrophils % (Manual) Band Neutrophils % Lymphocytes % (Manual) Monocytes % (Manual) Eosinophils % (Manual) Nucleated RBC % Platelet Estimate Polychromasia Hypochromasia (manual) Poikilocytosis (manual Anisocytosis (manual) Ovalocytes APTT Puncture Site pCO2 pO2 HCO3 ABG pH ABG Total CO2 ABG O2 Saturation ABG Base Excess ABG Hemoglobin ABG Carboxyhemoglobin POC ABG HHb (Measured) ABG Methemoglobin Uriel Test ABG Potassium A-a O2 Difference Respiratory Index Hgb O2 Saturation Sodium 143 Chloride 101 Glucose Lactate Vent Mode Mechanical Rate FiO2 Tidal Volume PEEP Crit Value Called To Crit Value Called By Crit Value Read Back Blood Gas Notified Time Potassium 3.6 Carbon Dioxide 18 L Anion Gap 28 H BUN 45 H Creatinine 2.6 H Est GFR ( Amer) 29 Est GFR (Non-Af Amer) 24 POC Glucose (mg/dL) Random Glucose 463 H* D Calcium 9.5 Phosphorus 8.8 H Magnesium 2.3 Total Bilirubin 0.7 AST 189 H D ALT 165 H D Alkaline Phosphatase 115 Total Creatine Kinase 324 H CK-MB (Mass) 7.41 H Troponin I, Quant 0.6470 H* Total Protein 6.3 Albumin 3.3 L Globulin 3.1 Albumin/Globulin Ratio 1.1 Arterial Blood Potassium Urine Color Urine Clarity Urine pH Ur Specific [place] Urine Protein Urine Glucose (UA) Urine Ketones Urine Blood Urine Nitrate Urine Bilirubin Urine Urobilinogen Ur Leukocyte Esterase Urine WBC (Auto) Urine RBC (Auto) Urine WBC Clumps (Auto) Ur Squamous Epith Cells Urine Bacteria [place]/Lambda Light Chain Free [place] Light Chains Free Lambda Light Chain Free [place]/Lambda Ratio M.pneumoniae IgG Titer 08/10/17 08/10/17 08/10/17 15:40 15:42 18:12 WBC RBC Hgb Hct MCV MCH MCHC RDW Plt Count MPV Neut % (Auto) Lymph % (Auto) Garza % (Auto) Eos % (Auto) Baso % (Auto) Neut # Lymph # Garza # Eos # Baso # Neutrophils % (Manual) Band Neutrophils % Lymphocytes % (Manual) Monocytes % (Manual) Eosinophils % (Manual) Nucleated RBC % Platelet Estimate Polychromasia Hypochromasia (manual) Poikilocytosis (manual Anisocytosis (manual) Ovalocytes APTT Puncture Site Rba pCO2 29 L pO2 53 L HCO3 23.7 ABG pH 7.48 H ABG Total CO2 22.5 ABG O2 Saturation 93.6 L ABG Base Excess -1.4 ABG Hemoglobin 8.8 L ABG Carboxyhemoglobin 2.4 H POC ABG HHb (Measured) 6.2 H ABG Methemoglobin 0.4 Uriel Test Pos ABG Potassium A-a O2 Difference 624.0 Respiratory Index 11.8 Hgb O2 Saturation 90.9 L Sodium Chloride Glucose Lactate Vent Mode Prvc Mechanical Rate 25 FiO2 100.0 Tidal Volume 550 PEEP 5 Crit Value Called To Crit Value Called By Crit Value Read Back Blood Gas Notified Time Potassium Carbon Dioxide Anion Gap BUN Creatinine Est GFR ( Amer) Est GFR (Non-Af Amer) POC Glucose (mg/dL) 419 H* Random Glucose Calcium Phosphorus Magnesium Total Bilirubin AST ALT Alkaline Phosphatase Total Creatine Kinase CK-MB (Mass) Troponin I, Quant Total Protein Albumin Globulin Albumin/Globulin Ratio Arterial Blood Potassium Urine Color Yellow Urine Clarity Hazy Urine pH 5.0 Ur Specific [place] 1.017 Urine Protein 2+ H Urine Glucose (UA) 1+ H Urine Ketones Negative Urine Blood Negative Urine Nitrate Negative Urine Bilirubin Negative Urine Urobilinogen Normal Ur Leukocyte Esterase 1+ H Urine WBC (Auto) 24 H Urine RBC (Auto) 3 Urine WBC Clumps (Auto) Few H Ur Squamous Epith Cells < 1 Urine Bacteria Rare [place]/Lambda Light Chain Free [place] Light Chains Free Lambda Light Chain Free [place]/Lambda Ratio M.pneumoniae IgG Titer 08/10/17 08/10/17 08/11/17 21:14 21:14 00:10 WBC RBC Hgb Hct MCV MCH MCHC RDW Plt Count MPV Neut % (Auto) Lymph % (Auto) Garza % (Auto) Eos % (Auto) Baso % (Auto) Neut # Lymph # Garza # Eos # Baso # Neutrophils % (Manual) Band Neutrophils % Lymphocytes % (Manual) Monocytes % (Manual) Eosinophils % (Manual) Nucleated RBC % Platelet Estimate Polychromasia Hypochromasia (manual) Poikilocytosis (manual Anisocytosis (manual) Ovalocytes APTT 65 H D Puncture Site pCO2 pO2 HCO3 ABG pH ABG Total CO2 ABG O2 Saturation ABG Base Excess ABG Hemoglobin ABG Carboxyhemoglobin POC ABG HHb (Measured) ABG Methemoglobin Uriel Test ABG Potassium A-a O2 Difference Respiratory Index Hgb O2 Saturation Sodium 141 Chloride 106 Glucose Lactate Vent Mode Mechanical Rate FiO2 Tidal Volume PEEP Crit Value Called To Crit Value Called By Crit Value Read Back Blood Gas Notified Time Potassium 4.0 Carbon Dioxide 23 Anion Gap 17 BUN 55 H Creatinine 2.7 H Est GFR ( Amer) 28 Est GFR (Non-Af Amer) 23 POC Glucose (mg/dL) 204 H Random Glucose 336 H Calcium 8.6 Phosphorus Magnesium Total Bilirubin 0.7 AST 226 H ALT 206 H D Alkaline Phosphatase 108 Total Creatine Kinase CK-MB (Mass) Troponin I, Quant Total Protein 6.1 L Albumin 3.1 L Globulin 3.0 Albumin/Globulin Ratio 1.0 Arterial Blood Potassium Urine Color Urine Clarity Urine pH Ur Specific [place] Urine Protein Urine Glucose (UA) Urine Ketones Urine Blood Urine Nitrate Urine Bilirubin Urine Urobilinogen Ur Leukocyte Esterase Urine WBC (Auto) Urine RBC (Auto) Urine WBC Clumps (Auto) Ur Squamous Epith Cells Urine Bacteria [place]/Lambda Light Chain Free [place] Light Chains Free Lambda Light Chain Free [place]/Lambda Ratio M.pneumoniae IgG Titer 08/11/17 08/11/17 08/11/17 05:05 05:17 05:43 WBC 15.7 H RBC 3.93 L Hgb 8.9 L Hct 28.2 L MCV 71.9 L D MCH 22.6 L MCHC 31.4 L RDW 19.9 H Plt Count 302 D MPV 9.5 Neut % (Auto) 89.6 H Lymph % (Auto) 5.8 L Garza % (Auto) 4.2 Eos % (Auto) 0.1 Baso % (Auto) 0.3 Neut # 14.0 H Lymph # 0.9 L Garza # 0.7 Eos # 0.0 Baso # 0.1 Neutrophils % (Manual) 84 H Band Neutrophils % 1 Lymphocytes % (Manual) 7 L Monocytes % (Manual) 7 Eosinophils % (Manual) 1 Nucleated RBC % 1 H Platelet Estimate Normal Polychromasia Slight Hypochromasia (manual) Slight Poikilocytosis (manual Slight Anisocytosis (manual) Slight Ovalocytes Slight APTT Puncture Site Rr pCO2 39 pO2 62 L HCO3 24.9 ABG pH 7.41 ABG Total CO2 25.9 ABG O2 Saturation 93.5 L ABG Base Excess 0.1 ABG Hemoglobin 10.7 L ABG Carboxyhemoglobin 2.0 H POC ABG HHb (Measured) 6.3 H ABG Methemoglobin 0.9 Uriel Test Pos ABG Potassium A-a O2 Difference 602.0 Respiratory Index 9.7 Hgb O2 Saturation 90.7 L Sodium Chloride Glucose Lactate Vent Mode Prvc Mechanical Rate 18 FiO2 100.0 Tidal Volume 550 PEEP 5 Crit Value Called To Crit Value Called By Crit Value Read Back Blood Gas Notified Time Potassium Carbon Dioxide Anion Gap BUN Creatinine Est GFR ( Amer) Est GFR (Non-Af Amer) POC Glucose (mg/dL) 105 Random Glucose Calcium Phosphorus Magnesium Total Bilirubin AST ALT Alkaline Phosphatase Total Creatine Kinase CK-MB (Mass) Troponin I, Quant Total Protein Albumin Globulin Albumin/Globulin Ratio Arterial Blood Potassium Urine Color Urine Clarity Urine pH Ur Specific [place] Urine Protein Urine Glucose (UA) Urine Ketones Urine Blood Urine Nitrate Urine Bilirubin Urine Urobilinogen Ur Leukocyte Esterase Urine WBC (Auto) Urine RBC (Auto) Urine WBC Clumps (Auto) Ur Squamous Epith Cells Urine Bacteria [place]/Lambda Light Chain Free [place] Light Chains Free Lambda Light Chain Free [place]/Lambda Ratio M.pneumoniae IgG Titer 08/11/17 08/11/17 05:43 05:43 WBC RBC Hgb Hct MCV MCH MCHC RDW Plt Count MPV Neut % (Auto) Lymph % (Auto) Garza % (Auto) Eos % (Auto) Baso % (Auto) Neut # Lymph # Garza # Eos # Baso # Neutrophils % (Manual) Band Neutrophils % Lymphocytes % (Manual) Monocytes % (Manual) Eosinophils % (Manual) Nucleated RBC % Platelet Estimate Polychromasia Hypochromasia (manual) Poikilocytosis (manual Anisocytosis (manual) Ovalocytes APTT 126 H* D Puncture Site pCO2 pO2 HCO3 ABG pH ABG Total CO2 ABG O2 Saturation ABG Base Excess ABG Hemoglobin ABG Carboxyhemoglobin POC ABG HHb (Measured) ABG Methemoglobin Uriel Test ABG Potassium A-a O2 Difference Respiratory Index Hgb O2 Saturation Sodium 143 Chloride 105 Glucose Lactate Vent Mode Mechanical Rate FiO2 Tidal Volume PEEP Crit Value Called To Crit Value Called By Crit Value Read Back Blood Gas Notified Time Potassium 3.6 Carbon Dioxide 23 Anion Gap 19 BUN 59 H Creatinine 3.1 H Est GFR ( Amer) 24 Est GFR (Non-Af Amer) 20 POC Glucose (mg/dL) Random Glucose 88 Calcium 8.6 Phosphorus Magnesium Total Bilirubin 0.6 AST 153 H D ALT 168 H Alkaline Phosphatase 98 Total Creatine Kinase CK-MB (Mass) Troponin I, Quant Total Protein 6.1 L Albumin 3.0 L Globulin 3.1 Albumin/Globulin Ratio 1.0 Arterial Blood Potassium Urine Color Urine Clarity Urine pH Ur Specific [place] Urine Protein Urine Glucose (UA) Urine Ketones Urine Blood Urine Nitrate Urine Bilirubin Urine Urobilinogen Ur Leukocyte Esterase Urine WBC (Auto) Urine RBC (Auto) Urine WBC Clumps (Auto) Ur Squamous Epith Cells Urine Bacteria [place]/Lambda Light Chain Free [place] Light Chains Free Lambda Light Chain Free [place]/Lambda Ratio M.pneumoniae IgG Titer EKG/Cardiology Studies: Cardiology / EKG Studies 08/10/17 14:00 EKG [ELECTROCARDIOGRAM] Stat Comment: Mode Of Transportation: Reason For Exam: s/p code blue Fingerstick Blood Sugar Results: 105 Review of Systems - Review of Systems Systems not reviewed;Unavailable: Intubated Critical Care Progress Note - Vent Settings TIDAL VOLUME:: 550 RESP RATE:: 18 FIO2:: 100 PEEP:: 5 - Nutrition Nutrition: Nutrition Category Date Time Status Heart Healthy Diet [DIET] Diets 08/09/17 Lunch Active Assessment/Plan - Assessment and Plan (Free Text) Assessment: 77 yo M admitted to ICU from floors, patient was to get CT scan and had respiratory distress, a code gareth was called and patient was transferred to ICU and intubated. Cardiovascular: code blue 08/10/17; CHF; CAD; HTN; HLD; Hx of DVT labs drawn after code blue -> troponin elevated, CK-MB elevated Echo - 25% systolic failure Hx of cardiac stent in the past Patient was previously on Eliquis for a prior history of DVT. nitroglycerin drip Furosemide 60mg iv q12 Metoprolol 50 mg Po daily Aspirin 81mg po daily Procardia 90 mg po daily Cozaar 100 mg po daily (held for Cr rise) Crestor 10 mg Po HS ID: pneumonia Rocephin 1gm iv daily started 08/07/17 and Azithromycin 500mg iv Q24 started 08/07 Blood culture, throat culture, Rapid strep, Influenza A and B studies, Urine Legionella, Mycoplasma studies = Negative Nephro: CKD GFR 45 which appears to be around baseline Dr. Miranda recommendations * Stop ARB and diuretics, gentle hydration Endo: DM Accuchecks ISS- High Dose A1c 8.4 Hold home medications at this time Heme: Anemia Likely iron deficiency anemia based on prior admissions Ferritin 27.4, Iron 22, TIBC 322, % Saturation 7 ferrlecit 125mg ivpb daily Monitor Hgb/Hct Neuro: Ativan 1mg ivp q2h prn for agitation Prophylaxis: famotidine 20mg po daily heparin drip <Kanu Laguna M - Last Filed: 08/13/17 10:59> CCU Objective - Vital Signs / Intake & Output Vital Signs (Last 4 hours): Vital Signs Temp Pulse Resp Pulse Ox 08/13/17 07:53 100.7 F H 08/13/17 07:00 87 22 99 Intake and Output (Last 8hrs): Intake & Output 08/12/17 08/13/17 08/13/17 22:59 06:59 14:59 Intake Total 286.5 392.3 17.6 Output Total 235 255 30 Balance 51.5 137.3 -12.4 Weight 202 lb 6.15 oz Intake: IV 20 200 Intake, IV Amount 166.5 192.3 17.6 Left Hand 35.7 95.2 11.9 Right Distal Port 59.3 45.6 5.7 Right Femoral 12.0 1.5 Right Medial Port Femoral 59.5 50 Tube Feeding 100 Output: Urine 235 255 30 Urethral (Sanchez) 235 255 30 Stool 0 0 0 - Medications Active Medications: Active Medications Generic Name Dose Route Start Last Admin Trade Name Freq PRN Reason Stop Dose Admin Acetaminophen 650 mg 08/11/17 17:40 08/13/17 03:21 Tylenol 650mg/20.3ml Solution Ud PO 650 mg Q6 PRN Administration Temperature Acetazolamide 500 mg 08/13/17 10:39 Diamox 500 Mg Inj IV 08/13/17 10:40 ONCE ONE Aspirin 81 mg 08/07/17 10:00 08/13/17 10:22 Ecotrin PO 81 mg DAILY LUIS FERNANDO Administration Clopidogrel Bisulfate 75 mg 08/12/17 11:00 08/13/17 10:22 Plavix PO 75 mg DAILY LUIS FERNANDO Administration Famotidine 20 mg 08/09/17 10:00 08/13/17 10:22 Pepcid PO 20 mg DAILY LUIS FERNANDO Administration Ferric Sodium Gluconate Complex 125 mg 08/08/17 10:00 08/12/17 09:13 Ferrlecit IVPB 08/16/17 10:01 125 mg DAILY LUIS FERNANDO Administration Furosemide 60 mg 08/11/17 10:30 08/12/17 19:40 Lasix IVP 60 mg Q12 LUIS FERNANDO Administration Heparin Sodium/Sodium Chloride 25,000 units in 250 mls @ 11.376 mls/hr 15:00 08/13/17 03:00 Heparin 42034 Units/250ml 1/2 Normal Saline IV 12.53 units/kg/hr .[id number] PRN 11.879 mls/hr PROTOCOL Administration Protocol 12 UNITS/KG/HR Piperacillin Sod/Tazobactam Sod 2.25 gm in 50 mls @ 100 mls/hr 08/12/17 20:00 08/13/17 03:30 Zosyn 2.25 Gm Iv Premix IVPB 100 mls/hr Q8H LUIS FERNANDO Administration Propofol 1,000 mg in 100 mls @ 2.844 mls/hr 08/12/17 21:00 08/12/17 22:00 Diprivan IV 10.02 mcg/kg/min .Q24H PRN 5.7 mls/hr TITRATE PER MD ORDER Titration Protocol 5 MCG/KG/MIN Insulin Aspart 0 unit 08/11/17 00:00 08/13/17 00:45 Novolog SC 4 unit Q6H LUIS FERNANDO Administration Protocol Ipratropium [place] 0.5 mg 08/07/17 08:47 08/12/17 07:21 Atrovent IH 0.5 mg RQ6 PRN Administration Shortness of Breath Lorazepam 1 mg 08/10/17 13:52 08/12/17 15:20 Ativan IVP 1 mg Q2H PRN Administration Agitation Metoprolol Succinate 50 mg 08/07/17 13:54 08/12/17 09:17 Toprol Xl PO 50 mg DAILY LUIS FERNANDO Administration Midazolam HCl 2 mg 08/12/17 14:26 Versed Inj IVP Q4H PRN Anxiety Nifedipine 30 mg 08/12/17 11:45 08/13/17 03:40 Procardia PO 30 mg Q8H LUIS FERNANDO Administration Rosuvastatin Calcium 10 mg 08/06/17 22:00 08/12/17 21:05 Crestor PO 10 mg HS LUIS FERNANDO Administration Saccharomyces Boulardii 250 mg 08/07/17 10:00 08/12/17 18:56 Florastor PO 250 mg BID LUIS FERNANDO Administration Senna/Docusate Sodium 1 tab 08/13/17 10:45 Senokot S 50 Mg-8.6 Mg PO BID LUIS FERNANDO - Patient Studies Lab Studies: Microbiology Studies 08/10/17 15:47 Urine Culture - Final Urine,Sanchez Gram Negative Sarmad Lab Studies 08/13/17 08/13/17 08/13/17 Range/Units 06:26 06:26 06:25 WBC 13.9 H (4.8-10.8) K/uL RBC 3.84 L (4.40-5.90) Mil/uL Hgb 8.8 L (12.0-18.0) g/dL Hct 28.2 L (35.0-51.0) % MCV 73.5 L (80.0-94.0) fL MCH 22.9 L (27.0-31.0) pg MCHC 31.2 L (33.0-37.0) g/dL RDW 21.1 H (11.5-14.5) % Plt Count 291 (130-400) K/uL MPV 10.0 (7.2-11.7) fL Neut % (Auto) 83.5 H (50.0-75.0) % Lymph % (Auto) 8.9 L (20.0-40.0) % Garza % (Auto) 6.0 (0.0-10.0) % Eos % (Auto) 1.2 (0.0-4.0) % Baso % (Auto) 0.4 (0.0-2.0) % Neut # 11.6 H (1.8-7.0) K/uL Lymph # 1.2 (1.0-4.3) K/uL Garza # 0.8 (0.0-0.8) K/uL Eos # 0.2 (0.0-0.7) K/uL Baso # 0.1 (0.0-0.2) K/uL Neutrophils % (Manual) 86 H (50-75) % Band Neutrophils % 2 (0-2) % Lymphocytes % (Manual) 8 L (20-40) % Monocytes % (Manual) 4 (0-10) % Platelet Estimate Normal (NORMAL) Large Platelets Present Polychromasia Slight Hypochromasia (manual) Slight Poikilocytosis (manual Slight Anisocytosis (manual) Moderate Microcytosis (manual) Slight Macrocytosis (manual) Slight Tear Drop Cells Slight Ovalocytes Slight [place] Cells Slight APTT 60 H D (21-34) SECONDS Puncture Site pCO2 (35-45) mm/Hg pO2 (80-100) mm/Hg HCO3 (21-28) mmol/L ABG pH (7.35-7.45) ABG Total CO2 (22-28) mmol/L ABG O2 Saturation (95-98) % ABG Base Excess (-2.0-3.0) mmol/L ABG Hemoglobin (11.7-17.4) g/dL ABG Carboxyhemoglobin (0.5-1.5) % POC ABG HHb (Measured) (0.0-5.0) % ABG Methemoglobin (0.0-3.0) % Uriel Test A-a O2 Difference mm/Hg Respiratory Index Hgb O2 Saturation (95.0-98.0) % Vent Mode Mechanical Rate FiO2 % Tidal Volume PEEP Sodium 145 (132-148) mmol/L Potassium 3.5 L (3.6-5.2) mmol/L Chloride 105 (98-107) mmol/L Carbon Dioxide 24 (22-30) mmol/L Anion Gap 20 (10-20) BUN 72 H (9-20) mg/dL Creatinine 3.3 H (0.8-1.5) MG/DL Est GFR ( Amer) 22 Est GFR (Non-Af Amer) 18 POC Glucose (mg/dL) (65-110) mg/dL Random Glucose 159 H (75-110) mg/dL Calcium 8.2 L (8.6-10.4) mg/dl Total Bilirubin 0.5 (0.2-1.3) mg/dL AST 47 (17-59) U/L ALT 80 H D (21-72) U/L Alkaline Phosphatase 102 (38-126) U/L Total Protein 6.0 L (6.3-8.3) g/dL Albumin 2.9 L (3.5-5.0) g/dL Globulin 3.2 (2.2-3.9) gm/dL Albumin/Globulin Ratio 0.9 L (1.0-2.1) Urine Color (YELLOW) Urine Clarity (Clear) Urine pH (5.0-8.0) Ur Specific [place] (1.003-1.030) Urine Protein (NEGATIVE) mg/dL Urine Glucose (UA) (Normal) mg/dL Urine Ketones (NEGATIVE) mg/dL Urine Blood (NEGATIVE) Urine Nitrate (NEGATIVE) Urine Bilirubin (NEGATIVE) Urine Urobilinogen (0.2-1.0) mg/dL Ur Leukocyte Esterase (Negative) Francoise/uL Urine WBC (Auto) (0-5) /hpf Urine RBC (Auto) (0-3) /hpf Ur Squamous Epith Cells (0-5) /hpf Urine Bacteria (<OCC) Ur Strep pneumoniae Ag 08/13/17 08/13/17 08/13/17 Range/Units 05:24 04:59 00:04 WBC (4.8-10.8) K/uL RBC (4.40-5.90) Mil/uL Hgb (12.0-18.0) g/dL Hct (35.0-51.0) % MCV (80.0-94.0) fL MCH (27.0-31.0) pg MCHC (33.0-37.0) g/dL RDW (11.5-14.5) % Plt Count (130-400) K/uL MPV (7.2-11.7) fL Neut % (Auto) (50.0-75.0) % Lymph % (Auto) (20.0-40.0) % Garza % (Auto) (0.0-10.0) % Eos % (Auto) (0.0-4.0) % Baso % (Auto) (0.0-2.0) % Neut # (1.8-7.0) K/uL Lymph # (1.0-4.3) K/uL Garza # (0.0-0.8) K/uL Eos # (0.0-0.7) K/uL Baso # (0.0-0.2) K/uL Neutrophils % (Manual) (50-75) % Band Neutrophils % (0-2) % Lymphocytes % (Manual) (20-40) % Monocytes % (Manual) (0-10) % Platelet Estimate (NORMAL) Large Platelets Polychromasia Hypochromasia (manual) Poikilocytosis (manual Anisocytosis (manual) Microcytosis (manual) Macrocytosis (manual) Tear Drop Cells Ovalocytes Yakov Cells APTT (21-34) SECONDS Puncture Site R rad pCO2 40 (35-45) mm/Hg pO2 75 L (80-100) mm/Hg HCO3 24.9 (21-28) mmol/L ABG pH 7.40 (7.35-7.45) ABG Total CO2 26.0 (22-28) mmol/L ABG O2 Saturation 97.6 (95-98) % ABG Base Excess 0 (-2.0-3.0) mmol/L ABG Hemoglobin 9.1 L (11.7-17.4) g/dL ABG Carboxyhemoglobin 2.2 H (0.5-1.5) % POC ABG HHb (Measured) 2.3 (0.0-5.0) % ABG Methemoglobin 0.7 (0.0-3.0) % Uriel Test Pos A-a O2 Difference 445.0 mm/Hg Respiratory Index 5.9 Hgb O2 Saturation 94.8 L (95.0-98.0) % Vent Mode Prvc Mechanical Rate 18 FiO2 80.0 % Tidal Volume 450 PEEP 16 Sodium (132-148) mmol/L Potassium (3.6-5.2) mmol/L Chloride (98-107) mmol/L Carbon Dioxide (22-30) mmol/L Anion Gap (10-20) BUN (9-20) mg/dL Creatinine (0.8-1.5) MG/DL Est GFR ( Amer) Est GFR (Non-Af Amer) POC Glucose (mg/dL) 192 H 206 H (65-110) mg/dL Random Glucose (75-110) mg/dL Calcium (8.6-10.4) mg/dl Total Bilirubin (0.2-1.3) mg/dL AST (17-59) U/L ALT (21-72) U/L Alkaline Phosphatase (38-126) U/L Total Protein (6.3-8.3) g/dL Albumin (3.5-5.0) g/dL Globulin (2.2-3.9) gm/dL Albumin/Globulin Ratio (1.0-2.1) Urine Color (YELLOW) Urine Clarity (Clear) Urine pH (5.0-8.0) Ur Specific [place] (1.003-1.030) Urine Protein (NEGATIVE) mg/dL Urine Glucose (UA) (Normal) mg/dL Urine Ketones (NEGATIVE) mg/dL Urine Blood (NEGATIVE) Urine Nitrate (NEGATIVE) Urine Bilirubin (NEGATIVE) Urine Urobilinogen (0.2-1.0) mg/dL Ur Leukocyte Esterase (Negative) Francoise/uL Urine WBC (Auto) (0-5) /hpf Urine RBC (Auto) (0-3) /hpf Ur Squamous Epith Cells (0-5) /hpf Urine Bacteria (<OCC) Ur Strep pneumoniae Ag 08/12/17 08/12/17 08/12/17 Range/Units 18:48 17:47 13:49 WBC (4.8-10.8) K/uL RBC (4.40-5.90) Mil/uL Hgb (12.0-18.0) g/dL Hct (35.0-51.0) % MCV (80.0-94.0) fL MCH (27.0-31.0) pg MCHC (33.0-37.0) g/dL RDW (11.5-14.5) % Plt Count (130-400) K/uL MPV (7.2-11.7) fL Neut % (Auto) (50.0-75.0) % Lymph % (Auto) (20.0-40.0) % Garza % (Auto) (0.0-10.0) % Eos % (Auto) (0.0-4.0) % Baso % (Auto) (0.0-2.0) % Neut # (1.8-7.0) K/uL Lymph # (1.0-4.3) K/uL Garza # (0.0-0.8) K/uL Eos # (0.0-0.7) K/uL Baso # (0.0-0.2) K/uL Neutrophils % (Manual) (50-75) % Band Neutrophils % (0-2) % Lymphocytes % (Manual) (20-40) % Monocytes % (Manual) (0-10) % Platelet Estimate (NORMAL) Large Platelets Polychromasia Hypochromasia (manual) Poikilocytosis (manual Anisocytosis (manual) Microcytosis (manual) Macrocytosis (manual) Tear Drop Cells Ovalocytes [place] Cells APTT (21-34) SECONDS Puncture Site pCO2 (35-45) mm/Hg pO2 (80-100) mm/Hg HCO3 (21-28) mmol/L ABG pH (7.35-7.45) ABG Total CO2 (22-28) mmol/L ABG O2 Saturation (95-98) % ABG Base Excess (-2.0-3.0) mmol/L ABG Hemoglobin (11.7-17.4) g/dL ABG Carboxyhemoglobin (0.5-1.5) % POC ABG HHb (Measured) (0.0-5.0) % ABG Methemoglobin (0.0-3.0) % Uriel Test A-a O2 Difference mm/Hg Respiratory Index Hgb O2 Saturation (95.0-98.0) % Vent Mode Mechanical Rate FiO2 % Tidal Volume PEEP Sodium (132-148) mmol/L Potassium (3.6-5.2) mmol/L Chloride (98-107) mmol/L Carbon Dioxide (22-30) mmol/L Anion Gap (10-20) BUN (9-20) mg/dL Creatinine (0.8-1.5) MG/DL Est GFR ( Amer) Est GFR (Non-Af Amer) POC Glucose (mg/dL) 259 H 234 H (65-110) mg/dL Random Glucose (75-110) mg/dL Calcium (8.6-10.4) mg/dl Total Bilirubin (0.2-1.3) mg/dL AST (17-59) U/L ALT (21-72) U/L Alkaline Phosphatase (38-126) U/L Total Protein (6.3-8.3) g/dL Albumin (3.5-5.0) g/dL Globulin (2.2-3.9) gm/dL Albumin/Globulin Ratio (1.0-2.1) Urine Color Yellow (YELLOW) Urine Clarity Hazy (Clear) Urine pH 5.0 (5.0-8.0) Ur Specific [place] 1.014 (1.003-1.030) Urine Protein Negative (NEGATIVE) mg/dL Urine Glucose (UA) Normal (Normal) mg/dL Urine Ketones Negative (NEGATIVE) mg/dL Urine Blood 3+ H (NEGATIVE) Urine Nitrate Negative (NEGATIVE) Urine Bilirubin Negative (NEGATIVE) Urine Urobilinogen Normal (0.2-1.0) mg/dL Ur Leukocyte Esterase 3+ H (Negative) Francoise/uL Urine WBC (Auto) 44 H (0-5) /hpf Urine RBC (Auto) 87 H (0-3) /hpf Ur Squamous Epith Cells < 1 (0-5) /hpf Urine Bacteria Occ H (<OCC) Ur Strep pneumoniae Ag 08/12/17 08/12/17 08/07/17 Range/Units 13:38 11:55 14:55 WBC (4.8-10.8) K/uL RBC (4.40-5.90) Mil/uL Hgb (12.0-18.0) g/dL Hct (35.0-51.0) % MCV (80.0-94.0) fL MCH (27.0-31.0) pg MCHC (33.0-37.0) g/dL RDW (11.5-14.5) % Plt Count (130-400) K/uL MPV (7.2-11.7) fL Neut % (Auto) (50.0-75.0) % Lymph % (Auto) (20.0-40.0) % Garza % (Auto) (0.0-10.0) % Eos % (Auto) (0.0-4.0) % Baso % (Auto) (0.0-2.0) % Neut # (1.8-7.0) K/uL Lymph # (1.0-4.3) K/uL Garza # (0.0-0.8) K/uL Eos # (0.0-0.7) K/uL Baso # (0.0-0.2) K/uL Neutrophils % (Manual) (50-75) % Band Neutrophils % (0-2) % Lymphocytes % (Manual) (20-40) % Monocytes % (Manual) (0-10) % Platelet Estimate (NORMAL) Large Platelets Polychromasia Hypochromasia (manual) Poikilocytosis (manual Anisocytosis (manual) Microcytosis (manual) Macrocytosis (manual) Tear Drop Cells Ovalocytes Yakov Cells APTT (21-34) SECONDS Puncture Site Rr Rr pCO2 34 L 36 (35-45) mm/Hg pO2 77 L 48 L (80-100) mm/Hg HCO3 23.4 24.0 (21-28) mmol/L ABG pH 7.42 7.42 (7.35-7.45) ABG Total CO2 23.1 24.5 (22-28) mmol/L ABG O2 Saturation 97.9 87.3 L (95-98) % ABG Base Excess -2.0 -0.9 (-2.0-3.0) mmol/L ABG Hemoglobin 9.0 L 9.3 L (11.7-17.4) g/dL ABG Carboxyhemoglobin 2.0 H 2.0 H (0.5-1.5) % POC ABG HHb (Measured) 2.0 12.3 H (0.0-5.0) % ABG Methemoglobin 0.8 0.9 (0.0-3.0) % Uriel Test Pos Pos A-a O2 Difference 594.0 620.0 mm/Hg Respiratory Index 7.7 12.9 Hgb O2 Saturation 95.2 84.8 L (95.0-98.0) % Vent Mode Prvc Mechanical Rate 18 18 FiO2 100.0 100.0 % Tidal Volume 450 500 PEEP 18 10 Sodium (132-148) mmol/L Potassium (3.6-5.2) mmol/L Chloride (98-107) mmol/L Carbon Dioxide (22-30) mmol/L Anion Gap (10-20) BUN (9-20) mg/dL Creatinine (0.8-1.5) MG/DL Est GFR ( Amer) Est GFR (Non-Af Amer) POC Glucose (mg/dL) (65-110) mg/dL Random Glucose (75-110) mg/dL Calcium (8.6-10.4) mg/dl Total Bilirubin (0.2-1.3) mg/dL AST (17-59) U/L ALT (21-72) U/L Alkaline Phosphatase (38-126) U/L Total Protein (6.3-8.3) g/dL Albumin (3.5-5.0) g/dL Globulin (2.2-3.9) gm/dL Albumin/Globulin Ratio (1.0-2.1) Urine Color (YELLOW) Urine Clarity (Clear) Urine pH (5.0-8.0) Ur Specific [place] (1.003-1.030) Urine Protein (NEGATIVE) mg/dL Urine Glucose (UA) (Normal) mg/dL Urine Ketones (NEGATIVE) mg/dL Urine Blood (NEGATIVE) Urine Nitrate (NEGATIVE) Urine Bilirubin (NEGATIVE) Urine Urobilinogen (0.2-1.0) mg/dL Ur Leukocyte Esterase (Negative) Francoise/uL Urine WBC (Auto) (0-5) /hpf Urine RBC (Auto) (0-3) /hpf Ur Squamous Epith Cells (0-5) /hpf Urine Bacteria (<OCC) Ur Strep pneumoniae Ag Detected H Laboratory Results - last 24 hr 08/07/17 08/12/17 08/12/17 14:55 11:55 13:38 WBC RBC Hgb Hct MCV MCH MCHC RDW Plt Count MPV Neut % (Auto) Lymph % (Auto) Garza % (Auto) Eos % (Auto) Baso % (Auto) Neut # Lymph # Garza # Eos # Baso # Neutrophils % (Manual) Band Neutrophils % Lymphocytes % (Manual) Monocytes % (Manual) Platelet Estimate Large Platelets Polychromasia Hypochromasia (manual) Poikilocytosis (manual Anisocytosis (manual) Microcytosis (manual) Macrocytosis (manual) Tear Drop Cells Ovalocytes [place] Cells APTT Puncture Site Rr Rr pCO2 36 34 L pO2 48 L 77 L HCO3 24.0 23.4 ABG pH 7.42 7.42 ABG Total CO2 24.5 23.1 ABG O2 Saturation 87.3 L 97.9 ABG Base Excess -0.9 -2.0 ABG Hemoglobin 9.3 L 9.0 L ABG Carboxyhemoglobin 2.0 H 2.0 H POC ABG HHb (Measured) 12.3 H 2.0 ABG Methemoglobin 0.9 0.8 Uriel Test Pos Pos A-a O2 Difference 620.0 594.0 Respiratory Index 12.9 7.7 Hgb O2 Saturation 84.8 L 95.2 Vent Mode Prvc Mechanical Rate 18 18 FiO2 100.0 100.0 Tidal Volume 500 450 PEEP 10 18 Sodium Potassium Chloride Carbon Dioxide Anion Gap BUN Creatinine Est GFR ( Amer) Est GFR (Non-Af Amer) POC Glucose (mg/dL) Random Glucose Calcium Total Bilirubin AST ALT Alkaline Phosphatase Total Protein Albumin Globulin Albumin/Globulin Ratio Urine Color Urine Clarity Urine pH Ur Specific [place] Urine Protein Urine Glucose (UA) Urine Ketones Urine Blood Urine Nitrate Urine Bilirubin Urine Urobilinogen Ur Leukocyte Esterase Urine WBC (Auto) Urine RBC (Auto) Ur Squamous Epith Cells Urine Bacteria Ur Strep pneumoniae Ag Detected H 08/12/17 08/12/17 08/12/17 13:49 17:47 18:48 WBC RBC Hgb Hct MCV MCH MCHC RDW Plt Count MPV Neut % (Auto) Lymph % (Auto) Garza % (Auto) Eos % (Auto) Baso % (Auto) Neut # Lymph # Garza # Eos # Baso # Neutrophils % (Manual) Band Neutrophils % Lymphocytes % (Manual) Monocytes % (Manual) Platelet Estimate Large Platelets Polychromasia Hypochromasia (manual) Poikilocytosis (manual Anisocytosis (manual) Microcytosis (manual) Macrocytosis (manual) Tear Drop Cells Ovalocytes Yakov Cells APTT Puncture Site pCO2 pO2 HCO3 ABG pH ABG Total CO2 ABG O2 Saturation ABG Base Excess ABG Hemoglobin ABG Carboxyhemoglobin POC ABG HHb (Measured) ABG Methemoglobin Uriel Test A-a O2 Difference Respiratory Index Hgb O2 Saturation Vent Mode Mechanical Rate FiO2 Tidal Volume PEEP Sodium Potassium Chloride Carbon Dioxide Anion Gap BUN Creatinine Est GFR ( Amer) Est GFR (Non-Af Amer) POC Glucose (mg/dL) 234 H 259 H Random Glucose Calcium Total Bilirubin AST ALT Alkaline Phosphatase Total Protein Albumin Globulin Albumin/Globulin Ratio Urine Color Yellow Urine Clarity Hazy Urine pH 5.0 Ur Specific [place] 1.014 Urine Protein Negative Urine Glucose (UA) Normal Urine Ketones Negative Urine Blood 3+ H Urine Nitrate Negative Urine Bilirubin Negative Urine Urobilinogen Normal Ur Leukocyte Esterase 3+ H Urine WBC (Auto) 44 H Urine RBC (Auto) 87 H Ur Squamous Epith Cells < 1 Urine Bacteria Occ H Ur Strep pneumoniae Ag 08/13/17 08/13/17 08/13/17 00:04 04:59 05:24 WBC RBC Hgb Hct MCV MCH MCHC RDW Plt Count MPV Neut % (Auto) Lymph % (Auto) Garza % (Auto) Eos % (Auto) Baso % (Auto) Neut # Lymph # Garza # Eos # Baso # Neutrophils % (Manual) Band Neutrophils % Lymphocytes % (Manual) Monocytes % (Manual) Platelet Estimate Large Platelets Polychromasia Hypochromasia (manual) Poikilocytosis (manual Anisocytosis (manual) Microcytosis (manual) Macrocytosis (manual) Tear Drop Cells Ovalocytes Yakov Cells APTT Puncture Site R rad pCO2 40 pO2 75 L HCO3 24.9 ABG pH 7.40 ABG Total CO2 26.0 ABG O2 Saturation 97.6 ABG Base Excess 0 ABG Hemoglobin 9.1 L ABG Carboxyhemoglobin 2.2 H POC ABG HHb (Measured) 2.3 ABG Methemoglobin 0.7 Uriel Test Pos A-a O2 Difference 445.0 Respiratory Index 5.9 Hgb O2 Saturation 94.8 L Vent Mode Prvc Mechanical Rate 18 FiO2 80.0 Tidal Volume 450 PEEP 16 Sodium Potassium Chloride Carbon Dioxide Anion Gap BUN Creatinine Est GFR ( Amer) Est GFR (Non-Af Amer) POC Glucose (mg/dL) 206 H 192 H Random Glucose Calcium Total Bilirubin AST ALT Alkaline Phosphatase Total Protein Albumin Globulin Albumin/Globulin Ratio Urine Color Urine Clarity Urine pH Ur Specific [place] Urine Protein Urine Glucose (UA) Urine Ketones Urine Blood Urine Nitrate Urine Bilirubin Urine Urobilinogen Ur Leukocyte Esterase Urine WBC (Auto) Urine RBC (Auto) Ur Squamous Epith Cells Urine Bacteria Ur Strep pneumoniae Ag 08/13/17 08/13/17 08/13/17 06:25 06:26 06:26 WBC 13.9 H RBC 3.84 L Hgb 8.8 L Hct 28.2 L MCV 73.5 L MCH 22.9 L MCHC 31.2 L RDW 21.1 H Plt Count 291 MPV 10.0 Neut % (Auto) 83.5 H Lymph % (Auto) 8.9 L Garza % (Auto) 6.0 Eos % (Auto) 1.2 Baso % (Auto) 0.4 Neut # 11.6 H Lymph # 1.2 Garza # 0.8 Eos # 0.2 Baso # 0.1 Neutrophils % (Manual) 86 H Band Neutrophils % 2 Lymphocytes % (Manual) 8 L Monocytes % (Manual) 4 Platelet Estimate Normal Large Platelets Present Polychromasia Slight Hypochromasia (manual) Slight Poikilocytosis (manual Slight Anisocytosis (manual) Moderate Microcytosis (manual) Slight Macrocytosis (manual) Slight Tear Drop Cells Slight Ovalocytes Slight [place] Cells Slight APTT 60 H D Puncture Site pCO2 pO2 HCO3 ABG pH ABG Total CO2 ABG O2 Saturation ABG Base Excess ABG Hemoglobin ABG Carboxyhemoglobin POC ABG HHb (Measured) ABG Methemoglobin Uriel Test A-a O2 Difference Respiratory Index Hgb O2 Saturation Vent Mode Mechanical Rate FiO2 Tidal Volume PEEP Sodium 145 Potassium 3.5 L Chloride 105 Carbon Dioxide 24 Anion Gap 20 BUN 72 H Creatinine 3.3 H Est GFR ( Amer) 22 Est GFR (Non-Af Amer) 18 POC Glucose (mg/dL) Random Glucose 159 H Calcium 8.2 L Total Bilirubin 0.5 AST 47 ALT 80 H D Alkaline Phosphatase 102 Total Protein 6.0 L Albumin 2.9 L Globulin 3.2 Albumin/Globulin Ratio 0.9 L Urine Color Urine Clarity Urine pH Ur Specific [place] Urine Protein Urine Glucose (UA) Urine Ketones Urine Blood Urine Nitrate Urine Bilirubin Urine Urobilinogen Ur Leukocyte Esterase Urine WBC (Auto) Urine RBC (Auto) Ur Squamous Epith Cells Urine Bacteria Ur Strep pneumoniae Ag Critical Care Progress Note - Nutrition Nutrition: Nutrition Category Date Time Status Heart Healthy Diet [DIET] Diets 08/09/17 Lunch Active Attending/Attestation - Attestation I have personally seen and examined this patient.: Yes I have fully participated in the care of the patient.: Yes I have reviewed all pertinent clinical information: Yes Notes (Text): 08/11/17 Today: , August 11, 2017 The Patient was seen and examined at the bedside, Medical records reviewed, and management issues were discussed and formulated with the house staff. Pain issues, skin care, head of the bed elevation, glycemic control were addressed. I have reviewed all the relevant clinical, laboratory, hemodynamic, radiographic data and medications S/p cardiac arrest with ROSC in about 8 minutes Awake, Does not follows commands, orally intubated and mechanically ventilated. PRVC AC16 TV500 FiO2 100% PEEP5. Off sedations Resp nonlabored spontaneous resp noted. HD Antibiotics Aggressive pulmonary toilet, chest PT, suctioning I concur with resident's History & Physical exam, assessment and plan of care as transcribed in Dr. Moore note. Total Critical Care Time spent 45 minutes Pt's current status is discussed with pt's family Fulll code
--- NOTE | 2017-08-11 12:01 | CP.PCM.PN ---
Subjective - Date & Time of Evaluation Date of Evaluation: 08/11/17 Time of Evaluation: 10:40 - Subjective Subjective: patient seen and examined in the intensive care unit Status post cardiac arrest and resuscitation Intubated on ventilatory support FiO2 100% Peak airway pressures in the mid 40s Moving all extremities Afebrile On Tridil drip Objective - Vital Signs/Intake and Output Vital Signs (last 24 hours): Temp Pulse Resp BP Pulse Ox 101.4 F H 101 H 18 116/65 96 08/11/17 08:00 08/11/17 07:00 08/11/17 07:00 08/11/17 06:59 08/11/17 07:00 Intake and Output: 08/11/17 08/11/17 06:59 18:59 Intake Total 511.7 42.3 Output Total 225 30 Balance 286.7 12.3 - Medications Medications: Current Medications Acetylcysteine (Acetylcysteine 20%) 3 ml PO Q12H [facility] Last Admin: 08/11/17 01:00 Dose: 3 ml Aspirin (Ecotrin) 81 mg PO DAILY [facility] Last Admin: 08/11/17 10:53 Dose: 81 mg Docusate Sodium (Colace) 100 mg PO TID [facility] Last Admin: 08/11/17 10:53 Dose: 100 mg Famotidine (Pepcid) 20 mg PO DAILY [facility] Last Admin: 08/11/17 10:53 Dose: 20 mg Ferric Sodium Gluconate Complex (Ferrlecit) 125 mg IVPB DAILY [facility] Stop: 08/16/17 10:01 Last Admin: 08/11/17 10:54 Dose: 125 mg Furosemide (Lasix) 20 mg IVP DAILY [facility] Last Admin: 08/09/17 09:03 Dose: 20 mg Furosemide (Lasix) 60 mg IVP Q12 [facility] Ceftriaxone Sodium (Rocephin Iv 1 Gm Duplex) 50 mls @ 100 mls/hr IVPB DAILY [facility] Last Admin: 08/11/17 10:54 Dose: 100 mls/hr Azithromycin 500 mg/ Sodium (Chloride) 250 mls @ 167 mls/hr IVPB Q24H [facility] Last Admin: 08/10/17 10:28 Dose: 167 mls/hr Heparin Sodium/Sodium Chloride (Heparin 71668 Units/250ml 1/2 Normal Saline) 25 ,000 units in 250 mls @ 11.376 mls/hr IV .[id number] PRN; Protocol; 12 UNITS/KG/HR PRN Reason: PROTOCOL Last Titration: 08/11/17 08:26 Dose: 12.5 units/kg/hr, 11.85 mls/hr Nitroglycerin/Dextrose (Nitroglycerin 50 Mg/250 Ml D5w) 50 mg in 250 mls @ 7.5 mls/hr IV .Q24H [facility]; 25 MCG/MIN PRN Reason: Protocol Last Titration: 08/11/17 03:15 Dose: 5 mcg/min, 1.5 mls/hr Insulin Aspart (Novolog) 0 unit SC Q6H [facility] PRN Reason: Protocol Last Admin: 08/11/17 05:32 Dose: Not Given Ipratropium [place] (Atrovent) 0.5 mg IH RQ6 PRN PRN Reason: Shortness of Breath Last Admin: 08/11/17 07:35 Dose: 0.5 mg Lorazepam (Ativan) 1 mg IVP Q2H PRN PRN Reason: Agitation Last Admin: 08/11/17 10:45 Dose: 1 mg Metoprolol Succinate (Toprol Xl) 50 mg PO DAILY [facility] Last Admin: 08/11/17 10:55 Dose: Not Given Nifedipine (Procardia Xl) 90 mg PO DAILY [facility] Last Admin: 08/11/17 10:55 Dose: Not Given Rosuvastatin Calcium (Crestor) 10 mg PO HS [facility] Last Admin: 08/10/17 22:15 Dose: 10 mg Saccharomyces Boulardii (Florastor) 250 mg PO BID [facility] Last Admin: 08/11/17 10:54 Dose: 250 mg - Labs Labs: 08/11/17 05:43 08/11/17 05:43 PT 13.0 SECONDS (9.7-12.2) H 08/09/17 23:23 INR 1.2 08/09/17 23:23 APTT 126 SECONDS (21-34) H* D 08/11/17 05:43 - Head Exam Head Exam: ATRAUMATIC, NORMOCEPHALIC - ENT Exam ENT Exam: Mucous Membranes Moist - Neck Exam Neck Exam: Normal Inspection - Respiratory Exam Respiratory Exam: Decreased Breath Sounds - Cardiovascular Exam Cardiovascular Exam: REGULAR RHYTHM - GI/Abdominal Exam GI & Abdominal Exam: Soft, Normal Bowel Sounds - Extremities Exam Extremities Exam: Pedal Edema Assessment and Plan (1) Cardiac arrest Assessment & Plan: status post cardiac arrest and resuscitation Continue ventilatory support Reduce FiO2 as tolerated Continue Lasix IV nitrates On antibiotics for pneumonia OGT feeding Status: Acute (2) Pneumonia Status: Acute (3) History of DVT (deep vein thrombosis) Status: Acute (4) CKD (chronic kidney disease) Status: Acute (5) Acute on chronic renal failure Status: Acute (6) CHF (congestive heart failure) Status: Acute
--- NOTE | 2017-08-11 13:01 | CARD ---
APPROVED REPORT EKG Measurement Heart [id number] <Conclusion> Normal sinus rhythm Left anterior fascicular block Septal infarct, age undetermined ST & T wave abnormality, consider lateral ischemia Abnormal ECG
[2017-08-11] MEDS: Nitroglycerin 50mg in D5W 50 MG/250 ML BOTTLE IV SCH (16:16)
[2017-08-11] MEDS: Acetaminophen 650mg/20.3ml solution UD PO PRN (17:51)
--- NOTE | 2017-08-11 19:38 | CP.PCM.PN ---
Subjective - Date & Time of Evaluation Date of Evaluation: 08/12/17 Time of Evaluation: 13:00 - Subjective Subjective: Medical Attending note: Patient seen and examined at bedside. Patient is currently on sedation and PRN ativan, intubated. Unable to review ROS secondary to clinical condition. Discussed with nurse, michael, patient was moving all extremities and attempting to remove his ET tube. Objective - Vital Signs/Intake and Output Vital Signs (last 24 hours): Temp Pulse Resp BP Pulse Ox 101.4 F H 111 H 18 124/54 L 98 08/11/17 16:00 08/11/17 16:00 08/11/17 16:00 08/11/17 16:00 08/11/17 16:00 Intake and Output: 08/11/17 08/12/17 18:59 06:59 Intake Total 317.0 Output Total 320 Balance -3.0 - Medications Medications: Current Medications Acetaminophen (Tylenol 650mg/20.3ml Solution Ud) 650 mg PO Q6 PRN PRN Reason: Temperature Last Admin: 08/11/17 17:51 Dose: 650 mg Acetylcysteine (Acetylcysteine 20%) 3 ml PO Q12H [facility] Last Admin: 08/11/17 13:26 Dose: 3 ml Aspirin (Ecotrin) 81 mg PO DAILY [facility] Last Admin: 08/11/17 10:53 Dose: 81 mg Docusate Sodium (Colace) 100 mg PO TID [facility] Last Admin: 08/11/17 17:29 Dose: 100 mg Famotidine (Pepcid) 20 mg PO DAILY [facility] Last Admin: 08/11/17 10:53 Dose: 20 mg Ferric Sodium Gluconate Complex (Ferrlecit) 125 mg IVPB DAILY [facility] Stop: 08/16/17 10:01 Last Admin: 08/11/17 10:54 Dose: 125 mg Furosemide (Lasix) 20 mg IVP DAILY [facility] Last Admin: 08/09/17 09:03 Dose: 20 mg Furosemide (Lasix) 60 mg IVP Q12 [facility] Last Admin: 08/11/17 11:00 Dose: 60 mg Ceftriaxone Sodium (Rocephin Iv 1 Gm Duplex) 50 mls @ 100 mls/hr IVPB DAILY [facility] Last Admin: 08/11/17 10:54 Dose: 100 mls/hr Azithromycin 500 mg/ Sodium (Chloride) 250 mls @ 167 mls/hr IVPB Q24H [facility] Last Admin: 08/10/17 10:28 Dose: 167 mls/hr Heparin Sodium/Sodium Chloride (Heparin 10741 Units/250ml 1/2 Normal Saline) 25 ,000 units in 250 mls @ 11.376 mls/hr IV .[id number] PRN; Protocol; 12 UNITS/KG/HR PRN Reason: PROTOCOL Last Titration: 08/11/17 16:00 Dose: 12.53 units/kg/hr, 11.879 mls/hr Nitroglycerin/Dextrose (Nitroglycerin 50 Mg/250 Ml D5w) 50 mg in 250 mls @ 7.5 mls/hr IV .Q24H [facility]; 25 MCG/MIN PRN Reason: Protocol Last Admin: 08/11/17 16:16 Dose: Not Given Insulin Aspart (Novolog) 0 unit SC Q6H [facility] PRN Reason: Protocol Last Admin: 08/11/17 17:36 Dose: 4 unit Ipratropium [place] (Atrovent) 0.5 mg IH RQ6 PRN PRN Reason: Shortness of Breath Last Admin: 08/11/17 07:35 Dose: 0.5 mg Lorazepam (Ativan) 1 mg IVP Q2H PRN PRN Reason: Agitation Last Admin: 08/11/17 18:24 Dose: 1 mg Metoprolol Succinate (Toprol Xl) 50 mg PO DAILY [facility] Last Admin: 08/11/17 10:55 Dose: Not Given Nifedipine (Procardia Xl) 90 mg PO DAILY [facility] Last Admin: 08/11/17 10:55 Dose: Not Given Rosuvastatin Calcium (Crestor) 10 mg PO HS [facility] Last Admin: 08/10/17 22:15 Dose: 10 mg Saccharomyces Boulardii (Florastor) 250 mg PO BID [facility] Last Admin: 08/11/17 17:29 Dose: 250 mg - Labs Labs: 08/11/17 05:43 08/11/17 05:43 PT 13.0 SECONDS (9.7-12.2) H 08/09/17 23:23 INR 1.2 08/09/17 23:23 APTT 105 SECONDS (21-34) H* D 08/11/17 13:57 - Constitutional Appears: No Acute Distress, Unkempt, Agitated - Head Exam Head Exam: NORMAL INSPECTION - Eye Exam Eye Exam: absent: Nystagmus, Scleral icterus Pupil Exam: PERRL Additional comments: sluggish - ENT Exam ENT Exam: Mucous Membranes Dry - Respiratory Exam Respiratory Exam: Decreased Breath Sounds, Rales. absent: Respiratory Distress , Stridor Additional comments: intubated, on vent - Cardiovascular Exam Cardiovascular Exam: +S1, +S2 - GI/Abdominal Exam GI & Abdominal Exam: Distended, Soft, Normal Bowel Sounds. absent: Firm, Guarding, Rigid, Tenderness, Rebound - Extremities Exam Extremities Exam: Pedal Edema. absent: Tenderness - Neurological Exam Additional comments: Patient is on sedation but reactive to pain and to touch - Psychiatric Exam Psychiatric exam: Agitated - Skin Skin Exam: Dry, Intact, Normal Color, Warm Assessment and Plan - Assessment and Plan (Free Text) Assessment: (1) Acute Respiratory Failure Cardiac Arrest Pulmonary Edema NONSTEMI Assessment and Plan: * Code Blue on 08/10: asystole, cardiopulmonary resuscitative measures initiated , requiring 3 epis, bicarbonate, ROSC achieved and intubated and brought to the ICU for further management * 08/10: Central line placed by ICU; placed on tridil drip; heparin drip c/w * 08/11: Patient placed on Lasix IV. On heparin drip. No plans for cardiac cath at time time. Chest Xray (08/11/17): NG tube extending into the stomach. Endotracheal tube extending into the mild thoracic trachea. Left sided pacemaker. multiple overlying external wires and tubing, Moderate severe venous congestion with prominent confluent airspace opacities in the mid to lower lung zones with associated small to moderate bilateral pleural effusions. scattered nodular densities in both lungs. Cardiomegaly. Degenerative changes in the spine and shoulders. (3) Chest pain Assessment and Plan: * Cardiology (Dr. Cortés) on board-->help appreciated * All trops WNL; Troponin positive in light of CPR * EKG x2 = Sinus tachycardia notes with possible left atrial enlargement; no apparent T segment elevations in contiguous leads * Heparin drip restarted * Patient's cardiac catherization cancelled secondary to rise in creatinine (2.3 ) on 08/09/17. * Patient has hx of abnormal stress test. Discussed with cardiology and nephrology given change in Cr on 08/09. * Echocardiogram (08/08/17): left ventrcile systolic function is severely impaired. EF: 25-30%; global hypokinesis of left ventricle mild aortic regurgitation. Mitral regurgitation is moderate. Moderate-severe pulmonary hypertesnion * hx of ACID * TSH: 1.16; T4: 1.53 * On Metoprolol 50 mg Po daily, Procardia 90 mg po daily, d/c Cozaar 100 mg po daily secondary to acute rise in Cr. (4) Acute Systolic CHF exacerbation Assessment and Plan: * Transferred to the ICU on 08/10 following cardiac arrest and intubation. * Echocardiogram (08/08/17): left ventrcile systolic function is severely impaired. EF: 25-30%; global hypokinesis of left ventricle mild aortic regurgitation. Mitral regurgitation is moderate. Moderate-severe pulmonary hypertension * Height of bed at 45 degrees, Strict ins and outs, monitor daily weights * On Metoprolol 50 mg Po daily, Procardia 90 mg po daily * d/c Cozaar 100 mg po daily secondary to acute renal insufficiency * Start Lasix 60mg IV Q 12hours Status: Acute (5) Pneumonia Assessment and Plan: * Pulmonary (Dr. Mena) on board-->help appreciated * Rocephin 1 gram IV q daily and d/c azithromycin 500mg IV q daily SE prolong QT * Florastor 250mg PO bid * Rapid strep, Influenza A and B studies, Urine Legionella, Mycoplasma studies = Negative * per pulm, Continue IV abx, Culture/sensitivity, CXR, Venous Doppler: negative for DVT Status: Acute (6) CAD (coronary artery disease) Assessment and Plan: * Hx of cardiac stent in the past * Heparin Drip * Cardiac cath on hold given events on 08/10 Status: Acute (7) HTN (hypertension) Assessment and Plan: * Off Metoprolol, Procardia and d/c Cozaar. (Hold parameters in place) following code blue-->placed on tridil drip * Cont to monitor Status: Chronic (8) CKD (chronic kidney disease) Assessment and Plan: * Dr. Miranda (nephrology) consulted on the case * Hx of CKD * GFR 45 which appears to be around baseline * Stopped ARB given rise in CR * Off IV fluids given pulmonary edema * Start Lasix 60mg IV Q 12hours Status: Acute (9) Diabetes mellitus Assessment and Plan: * Accuchecks QAC and Hs * NISS- High Dose * A1c 8.4 * Hold home medications at this time Status: Chronic (10) HLD (hyperlipidemia) Assessment and Plan: * On Crestor 10 mg Po HS * Dietary counseling enforced Status: Chronic (11) Constipation Assessment and Plan: * Will need to monitor Status: Chronic (12) Anemia Assessment and Plan: * Heme-oncology (Dr. Giles bender) on board-->help appreciated * Likely iron deficiency anemia based on prior admissions * Iron Studies. * Ferritin 27.4, Iron 22, TIBC 322, % Saturation 7 * Monitor Hgb/Hct Status: Chronic (13) History of DVT (deep vein thrombosis) Assessment and Plan: * Patient was previously on Eliquis for a prior history of DVT. * Repeat dopplers are negative for DVT * On Heparin Drip Status: Acute (14) Prophylactic measure Assessment and Plan: * pepcid 20mg PO daily * On Heparin Drip * Cardiac cath cancelled on 08/09/17 secondary to acute rise in Cr * Transferred to ICU s/p code blue and respiratory failure on 08/10 Status: Acute (15) Confusion; Alzheimer's Dementia Assessment and Plan: * Per daughter, patient has been getting bouts of confusion over the past year but appears at baseline. Patient has not seen formal neurology as outpatient per daughter. Per , prior to event, noted Alzheimers' disease dx one year ago * CT head w/o contrast (08/10/17):acute os subacute lacune infarct is not excluded in the left basal ganglia inferiorly with definitive chronic lacune identified in the right basal ganglia superiorly. No acute or subacute lobar brain infarction is appreciable by standard CT criteria. Mild age-related neuro degenerative changes are identifed. No acute intracranial hemorrhage or mass is identified throughout * 08/11: Patient gets agitated and will fight to pull the intubation tube out per nursing. Was placed on sedation and Ativan PRN Status: Acute
[2017-08-11] MEDS: Propofol 10 mg/ml 1,000 MG/100 ML VIAL IV PRN (20:00)
--- NOTE | 2017-08-11 22:47 | CP.PCM.PN ---
Subjective - Date & Time of Evaluation Date of Evaluation: 08/11/17 Time of Evaluation: 09:05 - Subjective Subjective: Patient seen and evaluated Intubated Moving extermities Objective - Vital Signs/Intake and Output Vital Signs (last 24 hours): Temp Pulse Resp BP Pulse Ox 99.6 F 98 H 18 127/50 L 98 08/11/17 19:00 08/11/17 19:00 08/11/17 19:00 08/11/17 19:00 08/11/17 19:00 Intake and Output: 08/11/17 08/12/17 18:59 06:59 Intake Total 343.8 18.4 Output Total 655 Balance -311.2 18.4 - Medications Medications: Current Medications Acetaminophen (Tylenol 650mg/20.3ml Solution Ud) 650 mg PO Q6 PRN PRN Reason: Temperature Last Admin: 08/11/17 17:51 Dose: 650 mg Acetylcysteine (Acetylcysteine 20%) 3 ml PO Q12H [facility] Last Admin: 08/11/17 13:26 Dose: 3 ml Aspirin (Ecotrin) 81 mg PO DAILY [facility] Last Admin: 08/11/17 10:53 Dose: 81 mg Docusate Sodium (Colace) 100 mg PO TID [facility] Last Admin: 08/11/17 17:29 Dose: 100 mg Famotidine (Pepcid) 20 mg PO DAILY [facility] Last Admin: 08/11/17 10:53 Dose: 20 mg Ferric Sodium Gluconate Complex (Ferrlecit) 125 mg IVPB DAILY [facility] Stop: 08/16/17 10:01 Last Admin: 08/11/17 10:54 Dose: 125 mg Furosemide (Lasix) 20 mg IVP DAILY [facility] Last Admin: 08/09/17 09:03 Dose: 20 mg Furosemide (Lasix) 60 mg IVP Q12 [facility] Last Admin: 08/11/17 11:00 Dose: 60 mg Ceftriaxone Sodium (Rocephin Iv 1 Gm Duplex) 50 mls @ 100 mls/hr IVPB DAILY [facility] Last Admin: 08/11/17 10:54 Dose: 100 mls/hr Azithromycin 500 mg/ Sodium (Chloride) 250 mls @ 167 mls/hr IVPB Q24H [facility] Last Admin: 08/10/17 10:28 Dose: 167 mls/hr Heparin Sodium/Sodium Chloride (Heparin 55437 Units/250ml 1/2 Normal Saline) 25 ,000 units in 250 mls @ 11.376 mls/hr IV .Q13P14Q PRN; Protocol; 12 UNITS/KG/HR PRN Reason: PROTOCOL Last Titration: 08/11/17 16:00 Dose: 12.53 units/kg/hr, 11.879 mls/hr Nitroglycerin/Dextrose (Nitroglycerin 50 Mg/250 Ml D5w) 50 mg in 250 mls @ 7.5 mls/hr IV .Q24H [facility]; 25 MCG/MIN PRN Reason: Protocol Last Admin: 08/11/17 16:16 Dose: Not Given Propofol (Diprivan) 1,000 mg in 100 mls @ 3.96 mls/hr IV .Q24H PRN; Protocol; 5 MCG/KG/MIN PRN Reason: TITRATE PER MD ORDER Last Titration: 08/11/17 20:30 Dose: 7.19 mcg/kg/min, 5.7 mls/hr Insulin Aspart (Novolog) 0 unit SC Q6H [facility] PRN Reason: Protocol Last Admin: 08/11/17 17:36 Dose: 4 unit Ipratropium [place] (Atrovent) 0.5 mg IH RQ6 PRN PRN Reason: Shortness of Breath Last Admin: 08/11/17 07:35 Dose: 0.5 mg Lorazepam (Ativan) 1 mg IVP Q2H PRN PRN Reason: Agitation Last Admin: 08/11/17 18:24 Dose: 1 mg Metoprolol Succinate (Toprol Xl) 50 mg PO DAILY [facility] Last Admin: 08/11/17 10:55 Dose: Not Given Nifedipine (Procardia Xl) 90 mg PO DAILY [facility] Last Admin: 08/11/17 10:55 Dose: Not Given Rosuvastatin Calcium (Crestor) 10 mg PO HS [facility] Last Admin: 08/10/17 22:15 Dose: 10 mg Saccharomyces Boulardii (Florastor) 250 mg PO BID [facility] Last Admin: 08/11/17 17:29 Dose: 250 mg - Labs Labs: 08/11/17 05:43 08/11/17 05:43 PT 13.0 SECONDS (9.7-12.2) H 08/09/17 23:23 INR 1.2 08/09/17 23:23 APTT 85 SECONDS (21-34) H D 08/11/17 21:21 - Head Exam Head Exam: ATRAUMATIC - Eye Exam Eye Exam: PERRL - ENT Exam ENT Exam: Mucous Membranes Moist - Neck Exam Neck Exam: Normal Inspection - Respiratory Exam Respiratory Exam: Clear to Ausculation Bilateral, NORMAL BREATHING PATTERN - Cardiovascular Exam Cardiovascular Exam: REGULAR RHYTHM, +S1, +S2 - GI/Abdominal Exam GI & Abdominal Exam: Soft - Extremities Exam Extremities Exam: Full ROM - Back Exam Back Exam: NORMAL INSPECTION - Neurological Exam Additional comments: Intubated - Skin Skin Exam: Warm Assessment and Plan - Assessment and Plan (Free Text) Assessment: Assessment/Plan - Assessment and Plan (Free Text) Assessment: 77 yo M admitted to ICU from floors, patient was to get CT scan and had respiratory distress, a code blue was called and patient was transferred to ICU and intubated. Cardiovascular: code blue 08/10/17; CHF; CAD; HTN; HLD; Hx of DVT labs drawn after code blue -> troponin elevated, CK-MB elevated Echo - 25% systolic failure Hx of cardiac stent in the past Patient was previously on Eliquis for a prior history of DVT. nitroglycerin drip Furosemide 60mg iv q12 Metoprolol 50 mg Po daily Aspirin 81mg po daily Procardia 90 mg po daily Cozaar 100 mg po daily (held for Cr rise) Crestor 10 mg Po HS ID: pneumonia Rocephin 1gm iv daily started 08/07/17 and Azithromycin 500mg iv Q24 started 08/07 Blood culture, throat culture, Rapid strep, Influenza A and B studies, Urine Legionella, Mycoplasma studies = Negative Nephro: CKD GFR 45 which appears to be around baseline Dr. Miranda recommendations * Stop ARB and diuretics, gentle hydration Endo: DM Accuchecks ISS- High Dose A1c 8.4 Hold home medications at this time Heme: Anemia Likely iron deficiency anemia based on prior admissions Ferritin 27.4, Iron 22, TIBC 322, % Saturation 7 ferrlecit 125mg ivpb daily Monitor Hgb/Hct Neuro: Ativan 1mg ivp q2h prn for agitation Prophylaxis: famotidine 20mg po daily heparin drip
[2017-08-12] MEDS: Acetylcysteine 20% Inhal Soln (4ml) PO SCH ×2 (01:00→11:56)
[2017-08-12] MEDS: (Novolog) Insulin Aspart, Recombinant 100 u/ml 10 ml vial SC SCH ×4 (01:00→18:56)
--- NOTE | 2017-08-12 04:27 | CP.PCM.PN ---
Subjective - Date & Time of Evaluation Date of Evaluation: 08/11/17 Time of Evaluation: 16:00 - Subjective Subjective: Vented Objective - Vital Signs/Intake and Output Vital Signs (last 24 hours): Temp Pulse Resp BP Pulse Ox 100 F H 93 H 21 136/58 L 100 08/12/17 00:00 08/12/17 03:00 08/12/17 03:00 08/12/17 02:38 08/12/17 03:00 Intake and Output: 08/11/17 08/12/17 18:59 06:59 Intake Total 343.8 168.4 Output Total 655 340 Balance -311.2 -171.6 - Medications Medications: Current Medications Acetaminophen (Tylenol 650mg/20.3ml Solution Ud) 650 mg PO Q6 PRN PRN Reason: Temperature Last Admin: 08/11/17 17:51 Dose: 650 mg Acetylcysteine (Acetylcysteine 20%) 3 ml PO Q12H [facility] Last Admin: 08/11/17 13:26 Dose: 3 ml Aspirin (Ecotrin) 81 mg PO DAILY [facility] Last Admin: 08/11/17 10:53 Dose: 81 mg Docusate Sodium (Colace) 100 mg PO TID [facility] Last Admin: 08/11/17 17:29 Dose: 100 mg Famotidine (Pepcid) 20 mg PO DAILY [facility] Last Admin: 08/11/17 10:53 Dose: 20 mg Ferric Sodium Gluconate Complex (Ferrlecit) 125 mg IVPB DAILY [facility] Stop: 08/16/17 10:01 Last Admin: 08/11/17 10:54 Dose: 125 mg Furosemide (Lasix) 20 mg IVP DAILY [facility] Last Admin: 08/09/17 09:03 Dose: 20 mg Furosemide (Lasix) 60 mg IVP Q12 [facility] Last Admin: 08/11/17 22:15 Dose: 60 mg Ceftriaxone Sodium (Rocephin Iv 1 Gm Duplex) 50 mls @ 100 mls/hr IVPB DAILY [facility] Last Admin: 08/11/17 10:54 Dose: 100 mls/hr Azithromycin 500 mg/ Sodium (Chloride) 250 mls @ 167 mls/hr IVPB Q24H [facility] Last Admin: 08/10/17 10:28 Dose: 167 mls/hr Heparin Sodium/Sodium Chloride (Heparin 85931 Units/250ml 1/2 Normal Saline) 25 ,000 units in 250 mls @ 11.376 mls/hr IV .[id number] PRN; Protocol; 12 UNITS/KG/HR PRN Reason: PROTOCOL Last Titration: 08/11/17 16:00 Dose: 12.53 units/kg/hr, 11.879 mls/hr Nitroglycerin/Dextrose (Nitroglycerin 50 Mg/250 Ml D5w) 50 mg in 250 mls @ 7.5 mls/hr IV .Q24H [facility]; 25 MCG/MIN PRN Reason: Protocol Last Admin: 08/11/17 16:16 Dose: Not Given Propofol (Diprivan) 1,000 mg in 100 mls @ 3.96 mls/hr IV .Q24H PRN; Protocol; 5 MCG/KG/MIN PRN Reason: TITRATE PER MD ORDER Last Titration: 08/11/17 20:30 Dose: 7.19 mcg/kg/min, 5.7 mls/hr Insulin Aspart (Novolog) 0 unit SC Q6H [facility] PRN Reason: Protocol Last Admin: 08/12/17 01:00 Dose: 4 unit Ipratropium [place] (Atrovent) 0.5 mg IH RQ6 PRN PRN Reason: Shortness of Breath Last Admin: 08/11/17 07:35 Dose: 0.5 mg Lorazepam (Ativan) 1 mg IVP Q2H PRN PRN Reason: Agitation Last Admin: 08/11/17 18:24 Dose: 1 mg Metoprolol Succinate (Toprol Xl) 50 mg PO DAILY [facility] Last Admin: 08/11/17 10:55 Dose: Not Given Nifedipine (Procardia Xl) 90 mg PO DAILY [facility] Last Admin: 08/11/17 10:55 Dose: Not Given Rosuvastatin Calcium (Crestor) 10 mg PO HS [facility] Last Admin: 08/11/17 22:45 Dose: 10 mg Saccharomyces Boulardii (Florastor) 250 mg PO BID [facility] Last Admin: 08/11/17 17:29 Dose: 250 mg - Labs Labs: 08/11/17 05:43 08/11/17 05:43 PT 13.0 SECONDS (9.7-12.2) H 08/09/17 23:23 INR 1.2 08/09/17 23:23 APTT 85 SECONDS (21-34) H D 08/11/17 21:21 - Head Exam Head Exam: ATRAUMATIC - Eye Exam Eye Exam: Normal appearance - ENT Exam ENT Exam: Mucous Membranes Dry - Respiratory Exam Respiratory Exam: NORMAL BREATHING PATTERN - Cardiovascular Exam Cardiovascular Exam: +S1, +S2 - GI/Abdominal Exam GI & Abdominal Exam: Normal Bowel Sounds Assessment and Plan (1) Anemia Assessment & Plan: iron deficiency; on Ferrlecit anemia of CKD Status: Chronic (2) Leukocytosis Assessment & Plan: on antibiotics Status: Acute (3) Coagulopathy Assessment & Plan: nutritional Status: Acute
--- NOTE | 2017-08-12 04:31 | CP.PCM.PN ---
Subjective - Date & Time of Evaluation Date of Evaluation: 08/10/17 Time of Evaluation: 12:00 - Subjective Subjective: Vented Objective - Vital Signs/Intake and Output Vital Signs (last 24 hours): Temp Pulse Resp BP Pulse Ox 100 F H 93 H 21 136/58 L 100 08/12/17 00:00 08/12/17 03:00 08/12/17 03:00 08/12/17 02:38 08/12/17 03:00 Intake and Output: 08/11/17 08/12/17 18:59 06:59 Intake Total 343.8 168.4 Output Total 655 340 Balance -311.2 -171.6 - Medications Medications: Current Medications Acetaminophen (Tylenol 650mg/20.3ml Solution Ud) 650 mg PO Q6 PRN PRN Reason: Temperature Last Admin: 08/11/17 17:51 Dose: 650 mg Acetylcysteine (Acetylcysteine 20%) 3 ml PO Q12H [facility] Last Admin: 08/11/17 13:26 Dose: 3 ml Aspirin (Ecotrin) 81 mg PO DAILY [facility] Last Admin: 08/11/17 10:53 Dose: 81 mg Docusate Sodium (Colace) 100 mg PO TID [facility] Last Admin: 08/11/17 17:29 Dose: 100 mg Famotidine (Pepcid) 20 mg PO DAILY [facility] Last Admin: 08/11/17 10:53 Dose: 20 mg Ferric Sodium Gluconate Complex (Ferrlecit) 125 mg IVPB DAILY [facility] Stop: 08/16/17 10:01 Last Admin: 08/11/17 10:54 Dose: 125 mg Furosemide (Lasix) 20 mg IVP DAILY [facility] Last Admin: 08/09/17 09:03 Dose: 20 mg Furosemide (Lasix) 60 mg IVP Q12 [facility] Last Admin: 08/11/17 22:15 Dose: 60 mg Ceftriaxone Sodium (Rocephin Iv 1 Gm Duplex) 50 mls @ 100 mls/hr IVPB DAILY [facility] Last Admin: 08/11/17 10:54 Dose: 100 mls/hr Azithromycin 500 mg/ Sodium (Chloride) 250 mls @ 167 mls/hr IVPB Q24H [facility] Last Admin: 08/10/17 10:28 Dose: 167 mls/hr Heparin Sodium/Sodium Chloride (Heparin 28496 Units/250ml 1/2 Normal Saline) 25 ,000 units in 250 mls @ 11.376 mls/hr IV .[id number] PRN; Protocol; 12 UNITS/KG/HR PRN Reason: PROTOCOL Last Titration: 08/11/17 16:00 Dose: 12.53 units/kg/hr, 11.879 mls/hr Nitroglycerin/Dextrose (Nitroglycerin 50 Mg/250 Ml D5w) 50 mg in 250 mls @ 7.5 mls/hr IV .Q24H [facility]; 25 MCG/MIN PRN Reason: Protocol Last Admin: 08/11/17 16:16 Dose: Not Given Propofol (Diprivan) 1,000 mg in 100 mls @ 3.96 mls/hr IV .Q24H PRN; Protocol; 5 MCG/KG/MIN PRN Reason: TITRATE PER MD ORDER Last Titration: 08/11/17 20:30 Dose: 7.19 mcg/kg/min, 5.7 mls/hr Insulin Aspart (Novolog) 0 unit SC Q6H [facility] PRN Reason: Protocol Last Admin: 08/12/17 01:00 Dose: 4 unit Ipratropium [place] (Atrovent) 0.5 mg IH RQ6 PRN PRN Reason: Shortness of Breath Last Admin: 08/11/17 07:35 Dose: 0.5 mg Lorazepam (Ativan) 1 mg IVP Q2H PRN PRN Reason: Agitation Last Admin: 08/11/17 18:24 Dose: 1 mg Metoprolol Succinate (Toprol Xl) 50 mg PO DAILY [facility] Last Admin: 08/11/17 10:55 Dose: Not Given Nifedipine (Procardia Xl) 90 mg PO DAILY [facility] Last Admin: 08/11/17 10:55 Dose: Not Given Rosuvastatin Calcium (Crestor) 10 mg PO HS [facility] Last Admin: 08/11/17 22:45 Dose: 10 mg Saccharomyces Boulardii (Florastor) 250 mg PO BID [facility] Last Admin: 08/11/17 17:29 Dose: 250 mg - Labs Labs: 08/11/17 05:43 08/11/17 05:43 PT 13.0 SECONDS (9.7-12.2) H 08/09/17 23:23 INR 1.2 08/09/17 23:23 APTT 85 SECONDS (21-34) H D 08/11/17 21:21 - Head Exam Head Exam: ATRAUMATIC - Eye Exam Eye Exam: Normal appearance - ENT Exam ENT Exam: Mucous Membranes Dry - Respiratory Exam Respiratory Exam: NORMAL BREATHING PATTERN - Cardiovascular Exam Cardiovascular Exam: +S1, +S2 - GI/Abdominal Exam GI & Abdominal Exam: Normal Bowel Sounds Assessment and Plan (1) Anemia Assessment & Plan: iron deficiency; IV iron anemia of CKD Status: Chronic (2) Leukocytosis Assessment & Plan: on antibiotics Status: Acute (3) Coagulopathy Assessment & Plan: nutritional Status: Acute
--- NOTE | 2017-08-12 04:33 | CP.PCM.PN ---
Subjective - Date & Time of Evaluation Date of Evaluation: 08/09/17 Time of Evaluation: 13:00 - Subjective Subjective: Confused Objective - Vital Signs/Intake and Output Vital Signs (last 24 hours): Temp Pulse Resp BP Pulse Ox 100 F H 93 H 21 136/58 L 100 08/12/17 00:00 08/12/17 03:00 08/12/17 03:00 08/12/17 02:38 08/12/17 03:00 Intake and Output: 08/11/17 08/12/17 18:59 06:59 Intake Total 343.8 168.4 Output Total 655 340 Balance -311.2 -171.6 - Medications Medications: Current Medications Acetaminophen (Tylenol 650mg/20.3ml Solution Ud) 650 mg PO Q6 PRN PRN Reason: Temperature Last Admin: 08/11/17 17:51 Dose: 650 mg Acetylcysteine (Acetylcysteine 20%) 3 ml PO Q12H [facility] Last Admin: 08/11/17 13:26 Dose: 3 ml Aspirin (Ecotrin) 81 mg PO DAILY [facility] Last Admin: 08/11/17 10:53 Dose: 81 mg Docusate Sodium (Colace) 100 mg PO TID [facility] Last Admin: 08/11/17 17:29 Dose: 100 mg Famotidine (Pepcid) 20 mg PO DAILY [facility] Last Admin: 08/11/17 10:53 Dose: 20 mg Ferric Sodium Gluconate Complex (Ferrlecit) 125 mg IVPB DAILY [facility] Stop: 08/16/17 10:01 Last Admin: 08/11/17 10:54 Dose: 125 mg Furosemide (Lasix) 20 mg IVP DAILY [facility] Last Admin: 08/09/17 09:03 Dose: 20 mg Furosemide (Lasix) 60 mg IVP Q12 [facility] Last Admin: 08/11/17 22:15 Dose: 60 mg Ceftriaxone Sodium (Rocephin Iv 1 Gm Duplex) 50 mls @ 100 mls/hr IVPB DAILY [facility] Last Admin: 08/11/17 10:54 Dose: 100 mls/hr Azithromycin 500 mg/ Sodium (Chloride) 250 mls @ 167 mls/hr IVPB Q24H [facility] Last Admin: 08/10/17 10:28 Dose: 167 mls/hr Heparin Sodium/Sodium Chloride (Heparin 80138 Units/250ml 1/2 Normal Saline) 25 ,000 units in 250 mls @ 11.376 mls/hr IV .[id number] PRN; Protocol; 12 UNITS/KG/HR PRN Reason: PROTOCOL Last Titration: 08/11/17 16:00 Dose: 12.53 units/kg/hr, 11.879 mls/hr Nitroglycerin/Dextrose (Nitroglycerin 50 Mg/250 Ml D5w) 50 mg in 250 mls @ 7.5 mls/hr IV .Q24H [facility]; 25 MCG/MIN PRN Reason: Protocol Last Admin: 08/11/17 16:16 Dose: Not Given Propofol (Diprivan) 1,000 mg in 100 mls @ 3.96 mls/hr IV .Q24H PRN; Protocol; 5 MCG/KG/MIN PRN Reason: TITRATE PER MD ORDER Last Titration: 08/11/17 20:30 Dose: 7.19 mcg/kg/min, 5.7 mls/hr Insulin Aspart (Novolog) 0 unit SC Q6H [facility]O PRN Reason: Protocol Last Admin: 08/12/17 01:00 Dose: 4 unit Ipratropium [place] (Atrovent) 0.5 mg IH RQ6 PRN PRN Reason: Shortness of Breath Last Admin: 08/11/17 07:35 Dose: 0.5 mg Lorazepam (Ativan) 1 mg IVP Q2H PRN PRN Reason: Agitation Last Admin: 08/11/17 18:24 Dose: 1 mg Metoprolol Succinate (Toprol Xl) 50 mg PO DAILY [facility] Last Admin: 08/11/17 10:55 Dose: Not Given Nifedipine (Procardia Xl) 90 mg PO DAILY [facility] Last Admin: 08/11/17 10:55 Dose: Not Given Rosuvastatin Calcium (Crestor) 10 mg PO HS [facility] Last Admin: 08/11/17 22:45 Dose: 10 mg Saccharomyces Boulardii (Florastor) 250 mg PO BID [facility] Last Admin: 08/11/17 17:29 Dose: 250 mg - Labs Labs: 08/11/17 05:43 08/11/17 05:43 PT 13.0 SECONDS (9.7-12.2) H 08/09/17 23:23 INR 1.2 08/09/17 23:23 APTT 85 SECONDS (21-34) H D 08/11/17 21:21 - Head Exam Head Exam: ATRAUMATIC - Eye Exam Eye Exam: Normal appearance - ENT Exam ENT Exam: Mucous Membranes Dry - Respiratory Exam Respiratory Exam: NORMAL BREATHING PATTERN - Cardiovascular Exam Cardiovascular Exam: +S1, +S2 - GI/Abdominal Exam GI & Abdominal Exam: Normal Bowel Sounds Assessment and Plan (1) Anemia Assessment & Plan: iron deficiency and CKD Status: Chronic (2) Leukocytosis Assessment & Plan: on antibiotics Status: Acute (3) Coagulopathy Assessment & Plan: nutritional Status: Acute
--- NOTE | 2017-08-12 04:36 | CP.PCM.PN ---
Subjective - Date & Time of Evaluation Date of Evaluation: 08/08/17 Time of Evaluation: 19:00 - Subjective Subjective: Feels short of breath Objective - Vital Signs/Intake and Output Vital Signs (last 24 hours): Temp Pulse Resp BP Pulse Ox 100 F H 93 H 21 136/58 L 100 08/12/17 00:00 08/12/17 03:00 08/12/17 03:00 08/12/17 02:38 08/12/17 03:00 Intake and Output: 08/11/17 08/12/17 18:59 06:59 Intake Total 343.8 168.4 Output Total 655 340 Balance -311.2 -171.6 - Medications Medications: Current Medications Acetaminophen (Tylenol 650mg/20.3ml Solution Ud) 650 mg PO Q6 PRN PRN Reason: Temperature Last Admin: 08/11/17 17:51 Dose: 650 mg Acetylcysteine (Acetylcysteine 20%) 3 ml PO Q12H [facility] Last Admin: 08/11/17 13:26 Dose: 3 ml Aspirin (Ecotrin) 81 mg PO DAILY [facility] Last Admin: 08/11/17 10:53 Dose: 81 mg Docusate Sodium (Colace) 100 mg PO TID [facility] Last Admin: 08/11/17 17:29 Dose: 100 mg Famotidine (Pepcid) 20 mg PO DAILY [facility] Last Admin: 08/11/17 10:53 Dose: 20 mg Ferric Sodium Gluconate Complex (Ferrlecit) 125 mg IVPB DAILY [facility] Stop: 08/16/17 10:01 Last Admin: 08/11/17 10:54 Dose: 125 mg Furosemide (Lasix) 20 mg IVP DAILY [facility] Last Admin: 08/09/17 09:03 Dose: 20 mg Furosemide (Lasix) 60 mg IVP Q12 [facility] Last Admin: 08/11/17 22:15 Dose: 60 mg Ceftriaxone Sodium (Rocephin Iv 1 Gm Duplex) 50 mls @ 100 mls/hr IVPB DAILY [facility] Last Admin: 08/11/17 10:54 Dose: 100 mls/hr Azithromycin 500 mg/ Sodium (Chloride) 250 mls @ 167 mls/hr IVPB Q24H [facility] Last Admin: 08/10/17 10:28 Dose: 167 mls/hr Heparin Sodium/Sodium Chloride (Heparin 27100 Units/250ml 1/2 Normal Saline) 25 ,000 units in 250 mls @ 11.376 mls/hr IV .[id number] PRN; Protocol; 12 UNITS/KG/HR PRN Reason: PROTOCOL Last Titration: 08/11/17 16:00 Dose: 12.53 units/kg/hr, 11.879 mls/hr Nitroglycerin/Dextrose (Nitroglycerin 50 Mg/250 Ml D5w) 50 mg in 250 mls @ 7.5 mls/hr IV .Q24H [facility]; 25 MCG/MIN PRN Reason: Protocol Last Admin: 08/11/17 16:16 Dose: Not Given Propofol (Diprivan) 1,000 mg in 100 mls @ 3.96 mls/hr IV .Q24H PRN; Protocol; 5 MCG/KG/MIN PRN Reason: TITRATE PER MD ORDER Last Titration: 08/11/17 20:30 Dose: 7.19 mcg/kg/min, 5.7 mls/hr Insulin Aspart (Novolog) 0 unit SC Q6H [facility] FERNANDO PRN Reason: Protocol Last Admin: 08/12/17 01:00 Dose: 4 unit Ipratropium [place] (Atrovent) 0.5 mg IH RQ6 PRN PRN Reason: Shortness of Breath Last Admin: 08/11/17 07:35 Dose: 0.5 mg Lorazepam (Ativan) 1 mg IVP Q2H PRN PRN Reason: Agitation Last Admin: 08/11/17 18:24 Dose: 1 mg Metoprolol Succinate (Toprol Xl) 50 mg PO DAILY [facility] Last Admin: 08/11/17 10:55 Dose: Not Given Nifedipine (Procardia Xl) 90 mg PO DAILY [facility] Last Admin: 08/11/17 10:55 Dose: Not Given Rosuvastatin Calcium (Crestor) 10 mg PO HS [facility] Last Admin: 08/11/17 22:45 Dose: 10 mg Saccharomyces Boulardii (Florastor) 250 mg PO BID [facility] Last Admin: 08/11/17 17:29 Dose: 250 mg - Labs Labs: 08/11/17 05:43 08/11/17 05:43 PT 13.0 SECONDS (9.7-12.2) H 08/09/17 23:23 INR 1.2 08/09/17 23:23 APTT 85 SECONDS (21-34) H D 08/11/17 21:21 - Head Exam Head Exam: ATRAUMATIC - Eye Exam Eye Exam: Normal appearance - ENT Exam ENT Exam: Mucous Membranes Dry - Respiratory Exam Respiratory Exam: NORMAL BREATHING PATTERN - Cardiovascular Exam Cardiovascular Exam: +S1, +S2 - GI/Abdominal Exam GI & Abdominal Exam: Normal Bowel Sounds Assessment and Plan (1) Anemia Assessment & Plan: iron deficiency and CKD Status: Chronic (2) Leukocytosis Assessment & Plan: on antibiotics Status: Acute (3) Coagulopathy Assessment & Plan: nutritional Status: Acute
[2017-08-12 05:33] LABS: ABG ALLEN TEST POS; ABG MECHANICAL RATE 18; ARTERIAL BLOOD GAS MODE PRVC; ARTERIAL BLOOD HGB O2 SAT 84.3 % (95.0-98.0); ATERIAL BLOOD GAS PEEP 5; CARBOXYHEMOGLOBIN 2.1 % (0.5-1.5); DRAW SITE RR; HHB 12.6 % (0.0-5.0)
[2017-08-12] MEDS: Acetaminophen 650mg/20.3ml solution UD PO PRN ×2 (06:00→13:22)
[2017-08-12 06:38] LABS: BASO # 0.1 K/uL (0.0-0.2); BASO % 0.4 % (0.0-2.0); EOS # 0.1 K/uL (0.0-0.7); EOS % 0.4 % (0.0-4.0); HEMATOCRIT 30.6 % (35.0-51.0); LYMPH # 1.2 K/uL (1.0-4.3); LYMPH % 7.1 % (20.0-40.0); MEAN CELL VOLUME 73.1 fL (80.0-94.0); MEAN CORPUSCULAR HEMOGLOBIN 22.7 pg (27.0-31.0); MEAN CORPUSCULAR HGB CONC 31.1 g/dL (33.0-37.0); MEAN PLATELET VOLUME 9.4 fL (7.2-11.7); MONO # 0.8 K/uL (0.0-0.8); MONO % 4.7 % (0.0-10.0); PLATELET COUNT 311 K/uL (130-400); WHITE BLOOD COUNT 16.7 K/uL (4.8-10.8)
[2017-08-12 06:38] LABS: POTASSIUM 3.2 mmol/L (3.6-5.2)
[2017-08-12 06:40] LABS: TOTAL PROTEIN 6.1 g/dL (6.3-8.3)
[2017-08-12 06:41] LABS: CALCIUM 8.7 mg/dl (8.6-10.4)
[2017-08-12] MEDS: Ipratropium 0.02% Inhal Soln (0.5 mg/2.5 ml) UD IH PRN (07:21)
--- NOTE | 2017-08-12 07:21 | CP.CCUPN ---
<Anton Moore - Last Filed: 08/12/17 16:22> CCU Subjective - Physician Review Subjective (Free Text): Patient seen and examined at bedside. Moving all extremities, was responsive to commands as a relative spoke to him and patient nodded to her questions. Intubated on ventilatory support FiO2 100%. ROS unobtainable at this time. 08/12/17 16:22 CCU Objective - Vital Signs / Intake & Output Vital Signs (Last 4 hours): Vital Signs Temp Pulse Resp BP Pulse Ox 08/12/17 06:00 100.9 F H 08/12/17 04:00 100.4 F H 92 H 18 135/61 100 Intake and Output (Last 8hrs): Intake & Output 08/11/17 08/12/17 08/12/17 22:59 06:59 14:59 Intake Total 140.1 133.0 Output Total 340 330 Balance -199.9 -197.0 Intake: IV 30 Intake, IV Amount 110.1 133.0 Right Distal Port 14.8 39.2 Right Femoral 12.0 10.5 Right Medial Port Femoral 83.3 83.3 Output: Urine 340 330 Urethral (Sanchez) 340 330 - Physical Exam Head: Positive for: Atraumatic, Normocephalic Pupils: Positive for: Sluggish Respiratory/Chest: Positive for: Other (on vent) Cardiovascular: Positive for: Regular Rate and Rhythm, Normal S1, S2 Abdomen: Positive for: Normal Bowel Sounds - Medications Active Medications: Active Medications Generic Name Dose Route Start Last Admin Trade Name Freq PRN Reason Stop Dose Admin Acetaminophen 650 mg 08/11/17 17:40 08/12/17 06:00 Tylenol 650mg/20.3ml Solution Ud PO 650 mg Q6 PRN Administration Temperature Acetylcysteine 3 ml 08/09/17 00:18 08/12/17 01:00 Acetylcysteine 20% PO 3 ml Q12H LUIS FERNANDO Administration Aspirin 81 mg 08/07/17 10:00 08/11/17 10:53 Ecotrin PO 81 mg DAILY LUIS FERNANDO Administration Docusate Sodium 100 mg 08/06/17 20:04 08/11/17 17:29 Colace PO 100 mg TID LUIS FERNANDO Administration Famotidine 20 mg 08/09/17 10:00 08/11/17 10:53 Pepcid PO 20 mg DAILY LUIS FERNANDO Administration Ferric Sodium Gluconate Complex 125 mg 08/08/17 10:00 08/11/17 10:54 Ferrlecit IVPB 08/16/17 10:01 125 mg DAILY LUIS FERNANDO Administration Furosemide 20 mg 08/08/17 10:00 08/09/17 09:03 Lasix IVP 20 mg DAILY LUIS FERNANDO Administration Furosemide 60 mg 08/11/17 10:30 08/11/17 22:15 Lasix IVP 60 mg Q12 LUIS FERNANDO Administration Ceftriaxone Sodium 50 mls @ 100 mls/hr 08/07/17 10:00 08/11/17 10:54 Rocephin Iv 1 Gm Duplex IVPB 100 mls/hr DAILY LUIS FERNANDO Administration Azithromycin 500 mg/ Sodium 250 mls @ 167 mls/hr 08/07/17 10:00 08/10/17 10: 28 Chloride IVPB 167 mls/hr Q24H LUIS FERNANDO Administration Heparin Sodium/Sodium Chloride 25,000 units in 250 mls @ 11.376 mls/hr 15:00 08/11/17 16:00 Heparin 24282 Units/250ml 1/2 Normal Saline IV 12.53 units/kg/hr .[id number] PRN 11.879 mls/hr PROTOCOL Titration Protocol 12 UNITS/KG/HR Nitroglycerin/Dextrose 50 mg in 250 mls @ 7.5 mls/hr 08/10/17 13:45 08/11/17 16:16 Nitroglycerin 50 Mg/250 Ml D5w IV Not Given .Q24H LUIS FERNANDO Protocol 25 MCG/MIN Propofol 1,000 mg in 100 mls @ 3.96 mls/hr 08/11/17 19:46 08/11/17 20:30 Diprivan IV 7.19 mcg/kg/min .Q24H PRN 5.7 mls/hr TITRATE PER MD ORDER Titration Protocol 5 MCG/KG/MIN Insulin Aspart 0 unit 08/11/17 00:00 08/12/17 06:54 Novolog SC 4 unit Q6H LUIS FERNANDO Administration Protocol Ipratropium [place] 0.5 mg 08/07/17 08:47 08/11/17 07:35 Atrovent IH 0.5 mg RQ6 PRN Administration Shortness of Breath Lorazepam 1 mg 08/10/17 13:52 08/11/17 18:24 Ativan IVP 1 mg Q2H PRN Administration Agitation Metoprolol Succinate 50 mg 08/07/17 13:54 08/11/17 10:55 Toprol Xl PO Not Given DAILY LUIS FERNANDO Nifedipine 90 mg 08/07/17 10:00 08/11/17 10:55 Procardia Xl PO Not Given DAILY LUIS FERNANDO Rosuvastatin Calcium 10 mg 08/06/17 22:00 08/11/17 22:45 Crestor PO 10 mg HS LUIS FERNANDO Administration Saccharomyces Boulardii 250 mg 08/07/17 10:00 08/11/17 17:29 Florastor PO 250 mg BID LUIS FERNANDO Administration - Patient Studies Lab Studies: Microbiology Studies 08/06/17 15:30 Blood Culture - Final Blood NO GROWTH AFTER 5 DAYS Gram Stain - Final TEST NOT PERFORMED 08/06/17 15:30 Blood Culture - Final Blood NO GROWTH AFTER 5 DAYS Gram Stain - Final Lab Studies 08/12/17 08/12/17 08/12/17 Range/Units 06:18 06:18 06:16 WBC 16.7 H (4.8-10.8) K/uL RBC 4.19 L (4.40-5.90) Mil/uL Hgb 9.5 L (12.0-18.0) g/dL Hct 30.6 L (35.0-51.0) % MCV 73.1 L (80.0-94.0) fL MCH 22.7 L (27.0-31.0) pg MCHC 31.1 L (33.0-37.0) g/dL RDW 20.0 H (11.5-14.5) % Plt Count 311 (130-400) K/uL MPV 9.4 (7.2-11.7) fL Neut % (Auto) 87.4 H (50.0-75.0) % Lymph % (Auto) 7.1 L (20.0-40.0) % Rolette % (Auto) 4.7 (0.0-10.0) % Eos % (Auto) 0.4 (0.0-4.0) % Baso % (Auto) 0.4 (0.0-2.0) % Neut # 14.6 H (1.8-7.0) K/uL Lymph # 1.2 (1.0-4.3) K/uL Rolette # 0.8 (0.0-0.8) K/uL Eos # 0.1 (0.0-0.7) K/uL Baso # 0.1 (0.0-0.2) K/uL Neutrophils % (Manual) (50-75) % Band Neutrophils % (0-2) % Lymphocytes % (Manual) (20-40) % Monocytes % (Manual) (0-10) % Eosinophils % (Manual) (0-4) % Nucleated RBC % (0-0) % Platelet Estimate (NORMAL) Polychromasia Hypochromasia (manual) Poikilocytosis (manual Anisocytosis (manual) Ovalocytes APTT 66 H D (21-34) SECONDS Puncture Site pCO2 (35-45) mm/Hg pO2 (80-100) mm/Hg HCO3 (21-28) mmol/L ABG pH (7.35-7.45) ABG Total CO2 (22-28) mmol/L ABG O2 Saturation (95-98) % ABG Base Excess (-2.0-3.0) mmol/L ABG Hemoglobin (11.7-17.4) g/dL ABG Carboxyhemoglobin (0.5-1.5) % POC ABG HHb (Measured) (0.0-5.0) % ABG Methemoglobin (0.0-3.0) % Uriel Test A-a O2 Difference mm/Hg Respiratory Index Hgb O2 Saturation (95.0-98.0) % Vent Mode Mechanical Rate FiO2 % Tidal Volume PEEP Sodium 142 (132-148) mmol/L Potassium 3.2 L (3.6-5.2) mmol/L Chloride 103 (98-107) mmol/L Carbon Dioxide 26 (22-30) mmol/L Anion Gap 16 (10-20) BUN 60 H (9-20) mg/dL Creatinine 3.0 H (0.8-1.5) MG/DL Est GFR ( Amer) 25 Est GFR (Non-Af Amer) 20 POC Glucose (mg/dL) (65-110) mg/dL Random Glucose 175 H (75-110) mg/dL Calcium 8.7 (8.6-10.4) mg/dl Total Bilirubin 1.0 (0.2-1.3) mg/dL AST 75 H D (17-59) U/L ALT 120 H D (21-72) U/L Alkaline Phosphatase 96 (38-126) U/L Total Protein 6.1 L (6.3-8.3) g/dL Albumin 3.1 L (3.5-5.0) g/dL Globulin 3.1 (2.2-3.9) gm/dL Albumin/Globulin Ratio 1.0 (1.0-2.1) 08/12/17 08/12/17 08/12/17 Range/Units 05:52 05:11 00:07 WBC (4.8-10.8) K/uL RBC (4.40-5.90) Mil/uL Hgb (12.0-18.0) g/dL Hct (35.0-51.0) % MCV (80.0-94.0) fL MCH (27.0-31.0) pg MCHC (33.0-37.0) g/dL RDW (11.5-14.5) % Plt Count (130-400) K/uL MPV (7.2-11.7) fL Neut % (Auto) (50.0-75.0) % Lymph % (Auto) (20.0-40.0) % Rolette % (Auto) (0.0-10.0) % Eos % (Auto) (0.0-4.0) % Baso % (Auto) (0.0-2.0) % Neut # (1.8-7.0) K/uL Lymph # (1.0-4.3) K/uL Rolette # (0.0-0.8) K/uL Eos # (0.0-0.7) K/uL Baso # (0.0-0.2) K/uL Neutrophils % (Manual) (50-75) % Band Neutrophils % (0-2) % Lymphocytes % (Manual) (20-40) % Monocytes % (Manual) (0-10) % Eosinophils % (Manual) (0-4) % Nucleated RBC % (0-0) % Platelet Estimate (NORMAL) Polychromasia Hypochromasia (manual) Poikilocytosis (manual Anisocytosis (manual) Ovalocytes APTT (21-34) SECONDS Puncture Site Rr pCO2 36 (35-45) mm/Hg pO2 49 L (80-100) mm/Hg HCO3 24.5 (21-28) mmol/L ABG pH 7.43 (7.35-7.45) ABG Total CO2 25.0 (22-28) mmol/L ABG O2 Saturation 87.0 L (95-98) % ABG Base Excess -0.2 (-2.0-3.0) mmol/L ABG Hemoglobin 9.7 L (11.7-17.4) g/dL ABG Carboxyhemoglobin 2.1 H (0.5-1.5) % POC ABG HHb (Measured) 12.6 H (0.0-5.0) % ABG Methemoglobin 1.0 (0.0-3.0) % Uriel Test Pos A-a O2 Difference 619.0 mm/Hg Respiratory Index 12.6 Hgb O2 Saturation 84.3 L (95.0-98.0) % Vent Mode Prvc Mechanical Rate 18 FiO2 100.0 % Tidal Volume 550 PEEP 5 Sodium (132-148) mmol/L Potassium (3.6-5.2) mmol/L Chloride (98-107) mmol/L Carbon Dioxide (22-30) mmol/L Anion Gap (10-20) BUN (9-20) mg/dL Creatinine (0.8-1.5) MG/DL Est GFR ( Amer) Est GFR (Non-Af Amer) POC Glucose (mg/dL) 215 H 226 H (65-110) mg/dL Random Glucose (75-110) mg/dL Calcium (8.6-10.4) mg/dl Total Bilirubin (0.2-1.3) mg/dL AST (17-59) U/L ALT (21-72) U/L Alkaline Phosphatase (38-126) U/L Total Protein (6.3-8.3) g/dL Albumin (3.5-5.0) g/dL Globulin (2.2-3.9) gm/dL Albumin/Globulin Ratio (1.0-2.1) 08/11/17 08/11/17 08/11/17 Range/Units 21:21 17:35 13:57 WBC (4.8-10.8) K/uL RBC (4.40-5.90) Mil/uL Hgb (12.0-18.0) g/dL Hct (35.0-51.0) % MCV (80.0-94.0) fL MCH (27.0-31.0) pg MCHC (33.0-37.0) g/dL RDW (11.5-14.5) % Plt Count (130-400) K/uL MPV (7.2-11.7) fL Neut % (Auto) (50.0-75.0) % Lymph % (Auto) (20.0-40.0) % Rolette % (Auto) (0.0-10.0) % Eos % (Auto) (0.0-4.0) % Baso % (Auto) (0.0-2.0) % Neut # (1.8-7.0) K/uL Lymph # (1.0-4.3) K/uL Rolette # (0.0-0.8) K/uL Eos # (0.0-0.7) K/uL Baso # (0.0-0.2) K/uL Neutrophils % (Manual) (50-75) % Band Neutrophils % (0-2) % Lymphocytes % (Manual) (20-40) % Monocytes % (Manual) (0-10) % Eosinophils % (Manual) (0-4) % Nucleated RBC % (0-0) % Platelet Estimate (NORMAL) Polychromasia Hypochromasia (manual) Poikilocytosis (manual Anisocytosis (manual) Ovalocytes APTT 85 H D 105 H* D (21-34) SECONDS Puncture Site pCO2 (35-45) mm/Hg pO2 (80-100) mm/Hg HCO3 (21-28) mmol/L ABG pH (7.35-7.45) ABG Total CO2 (22-28) mmol/L ABG O2 Saturation (95-98) % ABG Base Excess (-2.0-3.0) mmol/L ABG Hemoglobin (11.7-17.4) g/dL ABG Carboxyhemoglobin (0.5-1.5) % POC ABG HHb (Measured) (0.0-5.0) % ABG Methemoglobin (0.0-3.0) % Uriel Test A-a O2 Difference mm/Hg Respiratory Index Hgb O2 Saturation (95.0-98.0) % Vent Mode Mechanical Rate FiO2 % Tidal Volume PEEP Sodium (132-148) mmol/L Potassium (3.6-5.2) mmol/L Chloride (98-107) mmol/L Carbon Dioxide (22-30) mmol/L Anion Gap (10-20) BUN (9-20) mg/dL Creatinine (0.8-1.5) MG/DL Est GFR ( Amer) Est GFR (Non-Af Amer) POC Glucose (mg/dL) 200 H (65-110) mg/dL Random Glucose (75-110) mg/dL Calcium (8.6-10.4) mg/dl Total Bilirubin (0.2-1.3) mg/dL AST (17-59) U/L ALT (21-72) U/L Alkaline Phosphatase (38-126) U/L Total Protein (6.3-8.3) g/dL Albumin (3.5-5.0) g/dL Globulin (2.2-3.9) gm/dL Albumin/Globulin Ratio (1.0-2.1) 08/11/17 08/11/17 Range/Units 13:19 05:43 WBC (4.8-10.8) K/uL RBC (4.40-5.90) Mil/uL Hgb (12.0-18.0) g/dL Hct (35.0-51.0) % MCV (80.0-94.0) fL MCH (27.0-31.0) pg MCHC (33.0-37.0) g/dL RDW (11.5-14.5) % Plt Count (130-400) K/uL MPV (7.2-11.7) fL Neut % (Auto) (50.0-75.0) % Lymph % (Auto) (20.0-40.0) % Rolette % (Auto) (0.0-10.0) % Eos % (Auto) (0.0-4.0) % Baso % (Auto) (0.0-2.0) % Neut # (1.8-7.0) K/uL Lymph # (1.0-4.3) K/uL Rolette # (0.0-0.8) K/uL Eos # (0.0-0.7) K/uL Baso # (0.0-0.2) K/uL Neutrophils % (Manual) 84 H (50-75) % Band Neutrophils % 1 (0-2) % Lymphocytes % (Manual) 7 L (20-40) % Monocytes % (Manual) 7 (0-10) % Eosinophils % (Manual) 1 (0-4) % Nucleated RBC % 1 H (0-0) % Platelet Estimate Normal (NORMAL) Polychromasia Slight Hypochromasia (manual) Slight Poikilocytosis (manual Slight Anisocytosis (manual) Slight Ovalocytes Slight APTT (21-34) SECONDS Puncture Site pCO2 (35-45) mm/Hg pO2 (80-100) mm/Hg HCO3 (21-28) mmol/L ABG pH (7.35-7.45) ABG Total CO2 (22-28) mmol/L ABG O2 Saturation (95-98) % ABG Base Excess (-2.0-3.0) mmol/L ABG Hemoglobin (11.7-17.4) g/dL ABG Carboxyhemoglobin (0.5-1.5) % POC ABG HHb (Measured) (0.0-5.0) % ABG Methemoglobin (0.0-3.0) % Uriel Test A-a O2 Difference mm/Hg Respiratory Index Hgb O2 Saturation (95.0-98.0) % Vent Mode Mechanical Rate FiO2 % Tidal Volume PEEP Sodium (132-148) mmol/L Potassium (3.6-5.2) mmol/L Chloride (98-107) mmol/L Carbon Dioxide (22-30) mmol/L Anion Gap (10-20) BUN (9-20) mg/dL Creatinine (0.8-1.5) MG/DL Est GFR ( Amer) Est GFR (Non-Af Amer) POC Glucose (mg/dL) 211 H (65-110) mg/dL Random Glucose (75-110) mg/dL Calcium (8.6-10.4) mg/dl Total Bilirubin (0.2-1.3) mg/dL AST (17-59) U/L ALT (21-72) U/L Alkaline Phosphatase (38-126) U/L Total Protein (6.3-8.3) g/dL Albumin (3.5-5.0) g/dL Globulin (2.2-3.9) gm/dL Albumin/Globulin Ratio (1.0-2.1) Laboratory Results - last 24 hr 08/11/17 08/11/17 08/11/17 05:43 13:19 13:57 WBC RBC Hgb Hct MCV MCH MCHC RDW Plt Count MPV Neut % (Auto) Lymph % (Auto) Rolette % (Auto) Eos % (Auto) Baso % (Auto) Neut # Lymph # Rolette # Eos # Baso # Neutrophils % (Manual) 84 H Band Neutrophils % 1 Lymphocytes % (Manual) 7 L Monocytes % (Manual) 7 Eosinophils % (Manual) 1 Nucleated RBC % 1 H Platelet Estimate Normal Polychromasia Slight Hypochromasia (manual) Slight Poikilocytosis (manual Slight Anisocytosis (manual) Slight Ovalocytes Slight APTT 105 H* D Puncture Site pCO2 pO2 HCO3 ABG pH ABG Total CO2 ABG O2 Saturation ABG Base Excess ABG Hemoglobin ABG Carboxyhemoglobin POC ABG HHb (Measured) ABG Methemoglobin Uriel Test A-a O2 Difference Respiratory Index Hgb O2 Saturation Vent Mode Mechanical Rate FiO2 Tidal Volume PEEP Sodium Potassium Chloride Carbon Dioxide Anion Gap BUN Creatinine Est GFR ( Amer) Est GFR (Non-Af Amer) POC Glucose (mg/dL) 211 H Random Glucose Calcium Total Bilirubin AST ALT Alkaline Phosphatase Total Protein Albumin Globulin Albumin/Globulin Ratio 08/11/17 08/11/17 08/12/17 17:35 21:21 00:07 WBC RBC Hgb Hct MCV MCH MCHC RDW Plt Count MPV Neut % (Auto) Lymph % (Auto) Rolette % (Auto) Eos % (Auto) Baso % (Auto) Neut # Lymph # Rolette # Eos # Baso # Neutrophils % (Manual) Band Neutrophils % Lymphocytes % (Manual) Monocytes % (Manual) Eosinophils % (Manual) Nucleated RBC % Platelet Estimate Polychromasia Hypochromasia (manual) Poikilocytosis (manual Anisocytosis (manual) Ovalocytes APTT 85 H D Puncture Site pCO2 pO2 HCO3 ABG pH ABG Total CO2 ABG O2 Saturation ABG Base Excess ABG Hemoglobin ABG Carboxyhemoglobin POC ABG HHb (Measured) ABG Methemoglobin Uriel Test A-a O2 Difference Respiratory Index Hgb O2 Saturation Vent Mode Mechanical Rate FiO2 Tidal Volume PEEP Sodium Potassium Chloride Carbon Dioxide Anion Gap BUN Creatinine Est GFR ( Amer) Est GFR (Non-Af Amer) POC Glucose (mg/dL) 200 H 226 H Random Glucose Calcium Total Bilirubin AST ALT Alkaline Phosphatase Total Protein Albumin Globulin Albumin/Globulin Ratio 08/12/17 08/12/17 08/12/17 05:11 05:52 06:16 WBC RBC Hgb Hct MCV MCH MCHC RDW Plt Count MPV Neut % (Auto) Lymph % (Auto) Rolette % (Auto) Eos % (Auto) Baso % (Auto) Neut # Lymph # Rolette # Eos # Baso # Neutrophils % (Manual) Band Neutrophils % Lymphocytes % (Manual) Monocytes % (Manual) Eosinophils % (Manual) Nucleated RBC % Platelet Estimate Polychromasia Hypochromasia (manual) Poikilocytosis (manual Anisocytosis (manual) Ovalocytes APTT Puncture Site Rr pCO2 36 pO2 49 L HCO3 24.5 ABG pH 7.43 ABG Total CO2 25.0 ABG O2 Saturation 87.0 L ABG Base Excess -0.2 ABG Hemoglobin 9.7 L ABG Carboxyhemoglobin 2.1 H POC ABG HHb (Measured) 12.6 H ABG Methemoglobin 1.0 Uriel Test Pos A-a O2 Difference 619.0 Respiratory Index 12.6 Hgb O2 Saturation 84.3 L Vent Mode Prvc Mechanical Rate 18 FiO2 100.0 Tidal Volume 550 PEEP 5 Sodium 142 Potassium 3.2 L Chloride 103 Carbon Dioxide 26 Anion Gap 16 BUN 60 H Creatinine 3.0 H Est GFR ( Amer) 25 Est GFR (Non-Af Amer) 20 POC Glucose (mg/dL) 215 H Random Glucose 175 H Calcium 8.7 Total Bilirubin 1.0 AST 75 H D ALT 120 H D Alkaline Phosphatase 96 Total Protein 6.1 L Albumin 3.1 L Globulin 3.1 Albumin/Globulin Ratio 1.0 08/12/17 08/12/17 06:18 06:18 WBC 16.7 H RBC 4.19 L Hgb 9.5 L Hct 30.6 L MCV 73.1 L MCH 22.7 L MCHC 31.1 L RDW 20.0 H Plt Count 311 MPV 9.4 Neut % (Auto) 87.4 H Lymph % (Auto) 7.1 L Rolette % (Auto) 4.7 Eos % (Auto) 0.4 Baso % (Auto) 0.4 Neut # 14.6 H Lymph # 1.2 Rolette # 0.8 Eos # 0.1 Baso # 0.1 Neutrophils % (Manual) Band Neutrophils % Lymphocytes % (Manual) Monocytes % (Manual) Eosinophils % (Manual) Nucleated RBC % Platelet Estimate Polychromasia Hypochromasia (manual) Poikilocytosis (manual Anisocytosis (manual) Ovalocytes APTT 66 H D Puncture Site pCO2 pO2 HCO3 ABG pH ABG Total CO2 ABG O2 Saturation ABG Base Excess ABG Hemoglobin ABG Carboxyhemoglobin POC ABG HHb (Measured) ABG Methemoglobin Uriel Test A-a O2 Difference Respiratory Index Hgb O2 Saturation Vent Mode Mechanical Rate FiO2 Tidal Volume PEEP Sodium Potassium Chloride Carbon Dioxide Anion Gap BUN Creatinine Est GFR ( Amer) Est GFR (Non-Af Amer) POC Glucose (mg/dL) Random Glucose Calcium Total Bilirubin AST ALT Alkaline Phosphatase Total Protein Albumin Globulin Albumin/Globulin Ratio Fingerstick Blood Sugar Results: 105 Review of Systems - Review of Systems Systems not reviewed;Unavailable: Intubated Critical Care Progress Note - Nutrition Nutrition: Nutrition Category Date Time Status Heart Healthy Diet [DIET] Diets 08/09/17 Lunch Active Assessment/Plan - Assessment and Plan (Free Text) Assessment: 77 yo M admitted to ICU from floors, patient was to get CT scan and had respiratory distress, a mc servin was called and patient was transferred to ICU and intubated. Today 08/12/17: Patiently likely in ARDS. Echo ordered. Plavix 75mg po daily added. Started tube-feed. Discontinued propofol. Cardiovascular: code blue 08/10/17; CHF; CAD; HTN; HLD; Hx of DVT labs drawn after code blue -> troponin elevated, CK-MB elevated Echo - 25% systolic failure Hx of cardiac stent in the past Patient was previously on Eliquis for a prior history of DVT. nitroglycerin drip Furosemide 60mg iv q12 Metoprolol 50 mg Po daily Aspirin 81mg po daily Procardia 90 mg po daily Cozaar 100 mg po daily (held for Cr rise) Crestor 10 mg Po HS Plavix 75mg po daily added. ID: pneumonia Rocephin 1gm iv daily started 08/07/17 and Azithromycin 500mg iv Q24 started 08/07 Blood culture, throat culture, Rapid strep, Influenza A and B studies, Urine Legionella, Mycoplasma studies = Negative Nephro: CKD GFR 45 which appears to be around baseline Dr. Miranda recommendations * Stop ARB and diuretics, gentle hydration Endo: DM Accuchecks ISS- High Dose A1c 8.4 Hold home medications at this time Heme: Anemia Likely iron deficiency anemia based on prior admissions Ferritin 27.4, Iron 22, TIBC 322, % Saturation 7 ferrlecit 125mg ivpb daily Monitor Hgb/Hct Neuro: Ativan 1mg ivp q2h prn for agitation Prophylaxis: famotidine 20mg po daily heparin drip Tube-feed. <Diaz Streeter - Last Filed: 08/12/17 17:41> CCU Objective - Vital Signs / Intake & Output Intake and Output (Last 8hrs): Intake & Output 08/12/17 08/12/17 08/12/17 06:59 14:59 22:59 Intake Total 152.0 114.0 Output Total 605 90 Balance -453.0 24.0 Weight 208 lb 15.971 oz Intake: IV 95 Intake, IV Amount 152.0 19.0 Right Distal Port 44.8 5.6 Right Femoral 12.0 1.5 Right Medial Port Femoral 95.2 11.9 Output: Urine 605 90 Urethral (Sanchez) 605 90 - Medications Active Medications: Active Medications Generic Name Dose Route Start Last Admin Trade Name Freq PRN Reason Stop Dose Admin Acetaminophen 650 mg 08/11/17 17:40 08/12/17 13:22 Tylenol 650mg/20.3ml Solution Ud PO 650 mg Q6 PRN Administration Temperature Aspirin 81 mg 08/07/17 10:00 08/12/17 09:13 Ecotrin PO 81 mg DAILY LUIS FERNANDO Administration Clopidogrel Bisulfate 75 mg 08/12/17 11:00 08/12/17 12:06 Plavix PO 75 mg DAILY LUIS FERNANDO Administration Docusate Sodium 100 mg 08/06/17 20:04 08/12/17 15:29 Colace PO 100 mg TID LUIS FERNANDO Administration Famotidine 20 mg 08/09/17 10:00 08/12/17 09:16 Pepcid PO 20 mg DAILY LUIS FERNANDO Administration Ferric Sodium Gluconate Complex 125 mg 08/08/17 10:00 08/12/17 09:13 Ferrlecit IVPB 08/16/17 10:01 125 mg DAILY LUIS FERNANDO Administration Furosemide 60 mg 08/11/17 10:30 08/12/17 09:15 Lasix IVP 60 mg Q12 LUIS FERNANDO Administration Heparin Sodium/Sodium Chloride 25,000 units in 250 mls @ 11.376 mls/hr 15:00 08/11/17 16:00 Heparin 62501 Units/250ml 1/2 Normal Saline IV 12.53 units/kg/hr .[id number] PRN 11.879 mls/hr PROTOCOL Titration Protocol 12 UNITS/KG/HR Nitroglycerin/Dextrose 50 mg in 250 mls @ 7.5 mls/hr 08/10/17 13:45 08/12/17 14:32 Nitroglycerin 50 Mg/250 Ml D5w IV Not Given .Q24H LUIS FERNANDO Protocol 25 MCG/MIN Insulin Aspart 0 unit 08/11/17 00:00 08/12/17 14:31 Novolog SC 4 unit Q6H LUIS FERNANDO Administration Protocol Ipratropium [place] 0.5 mg 08/07/17 08:47 08/12/17 07:21 Atrovent IH 0.5 mg RQ6 PRN Administration Shortness of Breath Lorazepam 1 mg 08/10/17 13:52 08/12/17 15:20 Ativan IVP 1 mg Q2H PRN Administration Agitation Metoprolol Succinate 50 mg 08/07/17 13:54 08/12/17 09:17 Toprol Xl PO 50 mg DAILY LUIS FERNANDO Administration Midazolam HCl 2 mg 08/12/17 14:26 Versed Inj IVP Q4H PRN Anxiety Nifedipine 30 mg 08/12/17 11:45 08/12/17 12:28 Procardia PO 30 mg Q8H LUIS FERNANDO Administration Rosuvastatin Calcium 10 mg 08/06/17 22:00 08/11/17 22:45 Crestor PO 10 mg HS LUIS FERNANDO Administration Saccharomyces Boulardii 250 mg 08/07/17 10:00 08/12/17 09:18 Florastor PO 250 mg BID LUIS FERNANDO Administration - Patient Studies Lab Studies: Microbiology Studies 08/10/17 15:47 Urine Culture - Final Urine,Sanchez Gram Negative Sarmad 08/06/17 15:30 Blood Culture - Final Blood NO GROWTH AFTER 5 DAYS Gram Stain - Final TEST NOT PERFORMED 08/06/17 15:30 Blood Culture - Final Blood NO GROWTH AFTER 5 DAYS Gram Stain - Final Lab Studies 08/12/17 08/12/17 08/12/17 Range/Units 13:49 13:38 11:55 WBC (4.8-10.8) K/uL RBC (4.40-5.90) Mil/uL Hgb (12.0-18.0) g/dL Hct (35.0-51.0) % MCV (80.0-94.0) fL MCH (27.0-31.0) pg MCHC (33.0-37.0) g/dL RDW (11.5-14.5) % Plt Count (130-400) K/uL MPV (7.2-11.7) fL Neut % (Auto) (50.0-75.0) % Lymph % (Auto) (20.0-40.0) % Rolette % (Auto) (0.0-10.0) % Eos % (Auto) (0.0-4.0) % Baso % (Auto) (0.0-2.0) % Neut # (1.8-7.0) K/uL Lymph # (1.0-4.3) K/uL Rolette # (0.0-0.8) K/uL Eos # (0.0-0.7) K/uL Baso # (0.0-0.2) K/uL Neutrophils % (Manual) (50-75) % Lymphocytes % (Manual) (20-40) % Monocytes % (Manual) (0-10) % Platelet Estimate (NORMAL) Hypochromasia (manual) Poikilocytosis (manual Anisocytosis (manual) Tear Drop Cells Ovalocytes APTT (21-34) SECONDS Puncture Site Rr Rr pCO2 34 L 36 (35-45) mm/Hg pO2 77 L 48 L (80-100) mm/Hg HCO3 23.4 24.0 (21-28) mmol/L ABG pH 7.42 7.42 (7.35-7.45) ABG Total CO2 23.1 24.5 (22-28) mmol/L ABG O2 Saturation 97.9 87.3 L (95-98) % ABG Base Excess -2.0 -0.9 (-2.0-3.0) mmol/L ABG Hemoglobin 9.0 L 9.3 L (11.7-17.4) g/dL ABG Carboxyhemoglobin 2.0 H 2.0 H (0.5-1.5) % POC ABG HHb (Measured) 2.0 12.3 H (0.0-5.0) % ABG Methemoglobin 0.8 0.9 (0.0-3.0) % Uriel Test Pos Pos A-a O2 Difference 594.0 620.0 mm/Hg Respiratory Index 7.7 12.9 Hgb O2 Saturation 95.2 84.8 L (95.0-98.0) % Vent Mode Prvc Mechanical Rate 18 18 FiO2 100.0 100.0 % Tidal Volume 450 500 PEEP 18 10 Sodium (132-148) mmol/L Potassium (3.6-5.2) mmol/L Chloride (98-107) mmol/L Carbon Dioxide (22-30) mmol/L Anion Gap (10-20) BUN (9-20) mg/dL Creatinine (0.8-1.5) MG/DL Est GFR ( Amer) Est GFR (Non-Af Amer) POC Glucose (mg/dL) 234 H (65-110) mg/dL Random Glucose (75-110) mg/dL Calcium (8.6-10.4) mg/dl Total Bilirubin (0.2-1.3) mg/dL AST (17-59) U/L ALT (21-72) U/L Alkaline Phosphatase (38-126) U/L Total Protein (6.3-8.3) g/dL Albumin (3.5-5.0) g/dL Globulin (2.2-3.9) gm/dL Albumin/Globulin Ratio (1.0-2.1) Ur Strep pneumoniae Ag 08/12/17 08/12/17 08/12/17 Range/Units 06:18 06:18 06:16 WBC 16.7 H (4.8-10.8) K/uL RBC 4.19 L (4.40-5.90) Mil/uL Hgb 9.5 L (12.0-18.0) g/dL Hct 30.6 L (35.0-51.0) % MCV 73.1 L (80.0-94.0) fL MCH 22.7 L (27.0-31.0) pg MCHC 31.1 L (33.0-37.0) g/dL RDW 20.0 H (11.5-14.5) % Plt Count 311 (130-400) K/uL MPV 9.4 (7.2-11.7) fL Neut % (Auto) 87.4 H (50.0-75.0) % Lymph % (Auto) 7.1 L (20.0-40.0) % Rolette % (Auto) 4.7 (0.0-10.0) % Eos % (Auto) 0.4 (0.0-4.0) % Baso % (Auto) 0.4 (0.0-2.0) % Neut # 14.6 H (1.8-7.0) K/uL Lymph # 1.2 (1.0-4.3) K/uL Rolette # 0.8 (0.0-0.8) K/uL Eos # 0.1 (0.0-0.7) K/uL Baso # 0.1 (0.0-0.2) K/uL Neutrophils % (Manual) 89 H (50-75) % Lymphocytes % (Manual) 8 L (20-40) % Monocytes % (Manual) 3 (0-10) % Platelet Estimate Normal (NORMAL) Hypochromasia (manual) Slight Poikilocytosis (manual Slight Anisocytosis (manual) Slight Tear Drop Cells Slight Ovalocytes Slight APTT 66 H D (21-34) SECONDS Puncture Site pCO2 (35-45) mm/Hg pO2 (80-100) mm/Hg HCO3 (21-28) mmol/L ABG pH (7.35-7.45) ABG Total CO2 (22-28) mmol/L ABG O2 Saturation (95-98) % ABG Base Excess (-2.0-3.0) mmol/L ABG Hemoglobin (11.7-17.4) g/dL ABG Carboxyhemoglobin (0.5-1.5) % POC ABG HHb (Measured) (0.0-5.0) % ABG Methemoglobin (0.0-3.0) % Uriel Test A-a O2 Difference mm/Hg Respiratory Index Hgb O2 Saturation (95.0-98.0) % Vent Mode Mechanical Rate FiO2 % Tidal Volume PEEP Sodium 142 (132-148) mmol/L Potassium 3.2 L (3.6-5.2) mmol/L Chloride 103 (98-107) mmol/L Carbon Dioxide 26 (22-30) mmol/L Anion Gap 16 (10-20) BUN 60 H (9-20) mg/dL Creatinine 3.0 H (0.8-1.5) MG/DL Est GFR ( Amer) 25 Est GFR (Non-Af Amer) 20 POC Glucose (mg/dL) (65-110) mg/dL Random Glucose 175 H (75-110) mg/dL Calcium 8.7 (8.6-10.4) mg/dl Total Bilirubin 1.0 (0.2-1.3) mg/dL AST 75 H D (17-59) U/L ALT 120 H D (21-72) U/L Alkaline Phosphatase 96 (38-126) U/L Total Protein 6.1 L (6.3-8.3) g/dL Albumin 3.1 L (3.5-5.0) g/dL Globulin 3.1 (2.2-3.9) gm/dL Albumin/Globulin Ratio 1.0 (1.0-2.1) Ur Strep pneumoniae Ag 08/12/17 08/12/17 08/12/17 Range/Units 05:52 05:11 00:07 WBC (4.8-10.8) K/uL RBC (4.40-5.90) Mil/uL Hgb (12.0-18.0) g/dL Hct (35.0-51.0) % MCV (80.0-94.0) fL MCH (27.0-31.0) pg MCHC (33.0-37.0) g/dL RDW (11.5-14.5) % Plt Count (130-400) K/uL MPV (7.2-11.7) fL Neut % (Auto) (50.0-75.0) % Lymph % (Auto) (20.0-40.0) % [place]lette % (Auto) (0.0-10.0) % Eos % (Auto) (0.0-4.0) % Baso % (Auto) (0.0-2.0) % Neut # (1.8-7.0) K/uL Lymph # (1.0-4.3) K/uL Rolette # (0.0-0.8) K/uL Eos # (0.0-0.7) K/uL Baso # (0.0-0.2) K/uL Neutrophils % (Manual) (50-75) % Lymphocytes % (Manual) (20-40) % Monocytes % (Manual) (0-10) % Platelet Estimate (NORMAL) Hypochromasia (manual) Poikilocytosis (manual Anisocytosis (manual) Tear Drop Cells Ovalocytes APTT (21-34) SECONDS Puncture Site Rr pCO2 36 (35-45) mm/Hg pO2 49 L (80-100) mm/Hg HCO3 24.5 (21-28) mmol/L ABG pH 7.43 (7.35-7.45) ABG Total CO2 25.0 (22-28) mmol/L ABG O2 Saturation 87.0 L (95-98) % ABG Base Excess -0.2 (-2.0-3.0) mmol/L ABG Hemoglobin 9.7 L (11.7-17.4) g/dL ABG Carboxyhemoglobin 2.1 H (0.5-1.5) % POC ABG HHb (Measured) 12.6 H (0.0-5.0) % ABG Methemoglobin 1.0 (0.0-3.0) % Uriel Test Pos A-a O2 Difference 619.0 mm/Hg Respiratory Index 12.6 Hgb O2 Saturation 84.3 L (95.0-98.0) % Vent Mode Prvc Mechanical Rate 18 FiO2 100.0 % Tidal Volume 550 PEEP 5 Sodium (132-148) mmol/L Potassium (3.6-5.2) mmol/L Chloride (98-107) mmol/L Carbon Dioxide (22-30) mmol/L Anion Gap (10-20) BUN (9-20) mg/dL Creatinine (0.8-1.5) MG/DL Est GFR ( Amer) Est GFR (Non-Af Amer) POC Glucose (mg/dL) 215 H 226 H (65-110) mg/dL Random Glucose (75-110) mg/dL Calcium (8.6-10.4) mg/dl Total Bilirubin (0.2-1.3) mg/dL AST (17-59) U/L ALT (21-72) U/L Alkaline Phosphatase (38-126) U/L Total Protein (6.3-8.3) g/dL Albumin (3.5-5.0) g/dL Globulin (2.2-3.9) gm/dL Albumin/Globulin Ratio (1.0-2.1) Ur Strep pneumoniae Ag 08/11/17 08/11/17 08/07/17 Range/Units 21:21 17:35 14:55 WBC (4.8-10.8) K/uL RBC (4.40-5.90) Mil/uL Hgb (12.0-18.0) g/dL Hct (35.0-51.0) % MCV (80.0-94.0) fL MCH (27.0-31.0) pg MCHC (33.0-37.0) g/dL RDW (11.5-14.5) % Plt Count (130-400) K/uL MPV (7.2-11.7) fL Neut % (Auto) (50.0-75.0) % Lymph % (Auto) (20.0-40.0) % Rolette % (Auto) (0.0-10.0) % Eos % (Auto) (0.0-4.0) % Baso % (Auto) (0.0-2.0) % Neut # (1.8-7.0) K/uL Lymph # (1.0-4.3) K/uL Rolette # (0.0-0.8) K/uL Eos # (0.0-0.7) K/uL Baso # (0.0-0.2) K/uL Neutrophils % (Manual) (50-75) % Lymphocytes % (Manual) (20-40) % Monocytes % (Manual) (0-10) % Platelet Estimate (NORMAL) Hypochromasia (manual) Poikilocytosis (manual Anisocytosis (manual) Tear Drop Cells Ovalocytes APTT 85 H D (21-34) SECONDS Puncture Site pCO2 (35-45) mm/Hg pO2 (80-100) mm/Hg HCO3 (21-28) mmol/L ABG pH (7.35-7.45) ABG Total CO2 (22-28) mmol/L ABG O2 Saturation (95-98) % ABG Base Excess (-2.0-3.0) mmol/L ABG Hemoglobin (11.7-17.4) g/dL ABG Carboxyhemoglobin (0.5-1.5) % POC ABG HHb (Measured) (0.0-5.0) % ABG Methemoglobin (0.0-3.0) % Uriel Test A-a O2 Difference mm/Hg Respiratory Index Hgb O2 Saturation (95.0-98.0) % Vent Mode Mechanical Rate FiO2 % Tidal Volume PEEP Sodium (132-148) mmol/L Potassium (3.6-5.2) mmol/L Chloride (98-107) mmol/L Carbon Dioxide (22-30) mmol/L Anion Gap (10-20) BUN (9-20) mg/dL Creatinine (0.8-1.5) MG/DL Est GFR ( Amer) Est GFR (Non-Af Amer) POC Glucose (mg/dL) 200 H (65-110) mg/dL Random Glucose (75-110) mg/dL Calcium (8.6-10.4) mg/dl Total Bilirubin (0.2-1.3) mg/dL AST (17-59) U/L ALT (21-72) U/L Alkaline Phosphatase (38-126) U/L Total Protein (6.3-8.3) g/dL Albumin (3.5-5.0) g/dL Globulin (2.2-3.9) gm/dL Albumin/Globulin Ratio (1.0-2.1) Ur Strep pneumoniae Ag Detected H Laboratory Results - last 24 hr 08/07/17 08/11/17 08/11/17 14:55 17:35 21:21 WBC RBC Hgb Hct MCV MCH MCHC RDW Plt Count MPV Neut % (Auto) Lymph % (Auto) [place] % (Auto) Eos % (Auto) Baso % (Auto) Neut # Lymph # Rolette # Eos # Baso # Neutrophils % (Manual) Lymphocytes % (Manual) Monocytes % (Manual) Platelet Estimate Hypochromasia (manual) Poikilocytosis (manual Anisocytosis (manual) Tear Drop Cells Ovalocytes APTT 85 H D Puncture Site pCO2 pO2 HCO3 ABG pH ABG Total CO2 ABG O2 Saturation ABG Base Excess ABG Hemoglobin ABG Carboxyhemoglobin POC ABG HHb (Measured) ABG Methemoglobin Uriel Test A-a O2 Difference Respiratory Index Hgb O2 Saturation Vent Mode Mechanical Rate FiO2 Tidal Volume PEEP Sodium Potassium Chloride Carbon Dioxide Anion Gap BUN Creatinine Est GFR ( Amer) Est GFR (Non-Af Amer) POC Glucose (mg/dL) 200 H Random Glucose Calcium Total Bilirubin AST ALT Alkaline Phosphatase Total Protein Albumin Globulin Albumin/Globulin Ratio Ur Strep pneumoniae Ag Detected H 08/12/17 08/12/17 08/12/17 00:07 05:11 05:52 WBC RBC Hgb Hct MCV MCH MCHC RDW Plt Count MPV Neut % (Auto) Lymph % (Auto) [place]lette % (Auto) Eos % (Auto) Baso % (Auto) Neut # Lymph # [place] # Eos # Baso # Neutrophils % (Manual) Lymphocytes % (Manual) Monocytes % (Manual) Platelet Estimate Hypochromasia (manual) Poikilocytosis (manual Anisocytosis (manual) Tear Drop Cells Ovalocytes APTT Puncture Site Rr pCO2 36 pO2 49 L HCO3 24.5 ABG pH 7.43 ABG Total CO2 25.0 ABG O2 Saturation 87.0 L ABG Base Excess -0.2 ABG Hemoglobin 9.7 L ABG Carboxyhemoglobin 2.1 H POC ABG HHb (Measured) 12.6 H ABG Methemoglobin 1.0 Uriel Test Pos A-a O2 Difference 619.0 Respiratory Index 12.6 Hgb O2 Saturation 84.3 L Vent Mode Prvc Mechanical Rate 18 FiO2 100.0 Tidal Volume 550 PEEP 5 Sodium Potassium Chloride Carbon Dioxide Anion Gap BUN Creatinine Est GFR ( Amer) Est GFR (Non-Af Amer) POC Glucose (mg/dL) 226 H 215 H Random Glucose Calcium Total Bilirubin AST ALT Alkaline Phosphatase Total Protein Albumin Globulin Albumin/Globulin Ratio Ur Strep pneumoniae Ag 08/12/17 08/12/17 08/12/17 06:16 06:18 06:18 WBC 16.7 H RBC 4.19 L Hgb 9.5 L Hct 30.6 L MCV 73.1 L MCH 22.7 L MCHC 31.1 L RDW 20.0 H Plt Count 311 MPV 9.4 Neut % (Auto) 87.4 H Lymph % (Auto) 7.1 L Rolette % (Auto) 4.7 Eos % (Auto) 0.4 Baso % (Auto) 0.4 Neut # 14.6 H Lymph # 1.2 Rolette # 0.8 Eos # 0.1 Baso # 0.1 Neutrophils % (Manual) 89 H Lymphocytes % (Manual) 8 L Monocytes % (Manual) 3 Platelet Estimate Normal Hypochromasia (manual) Slight Poikilocytosis (manual Slight Anisocytosis (manual) Slight Tear Drop Cells Slight Ovalocytes Slight APTT 66 H D Puncture Site pCO2 pO2 HCO3 ABG pH ABG Total CO2 ABG O2 Saturation ABG Base Excess ABG Hemoglobin ABG Carboxyhemoglobin POC ABG HHb (Measured) ABG Methemoglobin Uriel Test A-a O2 Difference Respiratory Index Hgb O2 Saturation Vent Mode Mechanical Rate FiO2 Tidal Volume PEEP Sodium 142 Potassium 3.2 L Chloride 103 Carbon Dioxide 26 Anion Gap 16 BUN 60 H Creatinine 3.0 H Est GFR ( Amer) 25 Est GFR (Non-Af Amer) 20 POC Glucose (mg/dL) Random Glucose 175 H Calcium 8.7 Total Bilirubin 1.0 AST 75 H D ALT 120 H D Alkaline Phosphatase 96 Total Protein 6.1 L Albumin 3.1 L Globulin 3.1 Albumin/Globulin Ratio 1.0 Ur Strep pneumoniae Ag 08/12/17 08/12/17 08/12/17 11:55 13:38 13:49 WBC RBC Hgb Hct MCV MCH MCHC RDW Plt Count MPV Neut % (Auto) Lymph % (Auto) [place] % (Auto) Eos % (Auto) Baso % (Auto) Neut # Lymph # Rolette # Eos # Baso # Neutrophils % (Manual) Lymphocytes % (Manual) Monocytes % (Manual) Platelet Estimate Hypochromasia (manual) Poikilocytosis (manual Anisocytosis (manual) Tear Drop Cells Ovalocytes APTT Puncture Site Rr Rr pCO2 36 34 L pO2 48 L 77 L HCO3 24.0 23.4 ABG pH 7.42 7.42 ABG Total CO2 24.5 23.1 ABG O2 Saturation 87.3 L 97.9 ABG Base Excess -0.9 -2.0 ABG Hemoglobin 9.3 L 9.0 L ABG Carboxyhemoglobin 2.0 H 2.0 H POC ABG HHb (Measured) 12.3 H 2.0 ABG Methemoglobin 0.9 0.8 Uriel Test Pos Pos A-a O2 Difference 620.0 594.0 Respiratory Index 12.9 7.7 Hgb O2 Saturation 84.8 L 95.2 Vent Mode Prvc Mechanical Rate 18 18 FiO2 100.0 100.0 Tidal Volume 500 450 PEEP 10 18 Sodium Potassium Chloride Carbon Dioxide Anion Gap BUN Creatinine Est GFR ( Amer) Est GFR (Non-Af Amer) POC Glucose (mg/dL) 234 H Random Glucose Calcium Total Bilirubin AST ALT Alkaline Phosphatase Total Protein Albumin Globulin Albumin/Globulin Ratio Ur Strep pneumoniae Ag Critical Care Progress Note - Nutrition Nutrition: Nutrition Category Date Time Status Heart Healthy Diet [DIET] Diets 08/09/17 Lunch Active Attending/Attestation - Attestation I have personally seen and examined this patient.: Yes I have fully participated in the care of the patient.: Yes I have reviewed all pertinent clinical information: Yes Notes (Text): 08/12/17 17:38 I have seen and examined the patient. Medical records, lab studies, and imaging were reviewed by me and a management plan was formulated on multidisciplinary rounds with resident Dr. Hayes. I agree with their above documented assessment and plan. patient is in ARDS with severe systolic CHF acute on chronic exacerbation. Increasing diuretics to reduce pulmonary edema. Lung protective ventilation strategy. Critical Care Time 35 minutes. Multi-disciplinary rounds were performed with house staff, nursing, speech therapy, respiratory therapy, pharmacy and nutrition with integrated input from the primary team/attending and other consulting services. The documented time is cumulative and includes review of patient data/exams/labs/chart review and examination of the patient on rounds and throughout the day; time is exclusive of any procedures or teaching time.
[2017-08-12 08:47] LABS: NEUTROPHIL 89 % (50-75); TOTAL CELLS COUNTED 100
[2017-08-12] MEDS: Ferric Sodium Gluconat Complex 62.5 mg/5 ml Vial IVPB SCH (09:13)
[2017-08-12] MEDS: NIFEdipine 90 mg ER Tab PO SCH ×2 (09:17→12:26)
[2017-08-12] MEDS: Metoprolol Succinate 50 mg XL Tab PO SCH (09:17)
[2017-08-12] MEDS: Saccharomyces Boulardi 250 mg Cap PO SCH ×2 (09:18→18:56)
[2017-08-12] MEDS: Propofol 10 mg/ml 1,000 MG/100 ML VIAL IV PRN ×2 (09:58→21:00)
--- NOTE | 2017-08-12 10:22 | RAD ---
PROCEDURE: CHEST RADIOGRAPH, 1 VIEW HISTORY: inhtubated COMPARISON: 08/11/2017 FINDINGS: LUNGS: Extensive right basilar opacity, unchanged. No other definite opacity identified. PLEURA: Probable right pleural effusion, small. Grossly unchanged. No evidence of left pleural effusion. No pneumothorax. CARDIOVASCULAR: Mild cardiomegaly. AICD. ET tube and NG tube unchanged. OSSEOUS STRUCTURES: No significant abnormalities. VISUALIZED UPPER ABDOMEN: Normal. OTHER FINDINGS: None. IMPRESSION: Right basilar opacity. Small right pleural effusion. Lines and tubes unchanged.
[2017-08-12] MEDS ORDERED: Potassium Chloride 20 mEq/15 ml LIQ UD PO ONE (11:45)
[2017-08-12 11:59] LABS: ABG ALLEN TEST POS; ABG MECHANICAL RATE 18; ARTERIAL BLOOD GAS MODE PRVC; ARTERIAL BLOOD HGB O2 SAT 84.8 % (95.0-98.0); ATERIAL BLOOD GAS PEEP 10; DRAW SITE RR; HHB 12.3 % (0.0-5.0); METHEMOGLOBIN 0.9 % (0.0-3.0)
[2017-08-12] MEDS: cefTRIAXone IV 1 gm in Dextros 50 ML IVPB SCH (12:27)
[2017-08-12 13:42] LABS: ABG ALLEN TEST POS; ABG MECHANICAL RATE 18; ARTERIAL BLOOD HGB O2 SAT 95.2 % (95.0-98.0); ATERIAL BLOOD GAS PEEP 18; DRAW SITE RR; METHEMOGLOBIN 0.8 % (0.0-3.0)
--- NOTE | 2017-08-12 13:42 | CP.PCM.PN ---
Subjective - Date & Time of Evaluation Date of Evaluation: 08/12/17 Time of Evaluation: 13:39 - Subjective Subjective: Remains on vent, sedated Creat sl better at 3.0 UO- 700ml today so far- improving +UTI noted Objective - Vital Signs/Intake and Output Vital Signs (last 24 hours): Temp Pulse Resp BP Pulse Ox 100.3 F H 92 H 18 120/56 L 100 08/12/17 13:22 08/12/17 04:00 08/12/17 04:00 08/12/17 09:15 08/12/17 04:00 Intake and Output: 08/12/17 08/12/17 06:59 18:59 Intake Total 225.4 114.0 Output Total 720 90 Balance -494.6 24.0 - Medications Medications: Current Medications Acetaminophen (Tylenol 650mg/20.3ml Solution Ud) 650 mg PO Q6 PRN PRN Reason: Temperature Last Admin: 08/12/17 13:22 Dose: 650 mg Acetylcysteine (Acetylcysteine 20%) 3 ml PO Q12H [facility] Last Admin: 08/12/17 11:56 Dose: 3 ml Aspirin (Ecotrin) 81 mg PO DAILY [facility] Last Admin: 08/12/17 09:13 Dose: 81 mg Clopidogrel Bisulfate (Plavix) 75 mg PO DAILY [facility] Last Admin: 08/12/17 12:06 Dose: 75 mg Docusate Sodium (Colace) 100 mg PO TID [facility] Last Admin: 08/12/17 09:13 Dose: 100 mg Famotidine (Pepcid) 20 mg PO DAILY [facility] Last Admin: 08/12/17 09:16 Dose: 20 mg Ferric Sodium Gluconate Complex (Ferrlecit) 125 mg IVPB DAILY [facility] Stop: 08/16/17 10:01 Last Admin: 08/12/17 09:13 Dose: 125 mg Furosemide (Lasix) 20 mg IVP DAILY [facility] Last Admin: 08/09/17 09:03 Dose: 20 mg Furosemide (Lasix) 60 mg IVP Q12 [facility] Last Admin: 08/12/17 09:15 Dose: 60 mg Azithromycin 500 mg/ Sodium (Chloride) 250 mls @ 167 mls/hr IVPB Q24H [facility] Last Admin: 08/10/17 10:28 Dose: 167 mls/hr Heparin Sodium/Sodium Chloride (Heparin 99890 Units/250ml 1/2 Normal Saline) 25 ,000 units in 250 mls @ 11.376 mls/hr IV .[id number] PRN; Protocol; 12 UNITS/KG/HR PRN Reason: PROTOCOL Last Titration: 08/11/17 16:00 Dose: 12.53 units/kg/hr, 11.879 mls/hr Nitroglycerin/Dextrose (Nitroglycerin 50 Mg/250 Ml D5w) 50 mg in 250 mls @ 7.5 mls/hr IV .Q24H [facility]; 25 MCG/MIN PRN Reason: Protocol Last Admin: 08/11/17 16:16 Dose: Not Given Potassium Chloride (Potassium Chloride 20 Meq/100 Ml) 20 meq in 100 mls @ 50 mls/hr IVPB ONCE ONE Stop: 08/12/17 13:59 Last Admin: 08/12/17 12:07 Dose: 50 mls/hr Insulin Aspart (Novolog) 0 unit SC Q6H [facility] PRN Reason: Protocol Last Admin: 08/12/17 06:54 Dose: 4 unit Ipratropium [place] (Atrovent) 0.5 mg IH RQ6 PRN PRN Reason: Shortness of Breath Last Admin: 08/12/17 07:21 Dose: 0.5 mg Lorazepam (Ativan) 1 mg IVP Q2H PRN PRN Reason: Agitation Last Admin: 08/11/17 18:24 Dose: 1 mg Metoprolol Succinate (Toprol Xl) 50 mg PO DAILY [facility] Last Admin: 08/12/17 09:17 Dose: 50 mg Nifedipine (Procardia) 30 mg PO Q8H [facility] Last Admin: 08/12/17 12:28 Dose: 30 mg Rosuvastatin Calcium (Crestor) 10 mg PO HS [facility] Last Admin: 08/11/17 22:45 Dose: 10 mg Saccharomyces Boulardii (Florastor) 250 mg PO BID [facility] Last Admin: 08/12/17 09:18 Dose: 250 mg - Labs Labs: 08/12/17 06:18 08/12/17 06:16 PT 13.0 SECONDS (9.7-12.2) H 08/09/17 23:23 INR 1.2 08/09/17 23:23 APTT 66 SECONDS (21-34) H D 08/12/17 06:18 - Constitutional Appears: Confused, Chronically Ill - Head Exam Head Exam: ATRAUMATIC, NORMAL INSPECTION - Eye Exam Eye Exam: Normal appearance - Neck Exam Neck Exam: Normal Inspection. absent: Tenderness - Respiratory Exam Respiratory Exam: Rales, Respiratory Distress - Cardiovascular Exam Cardiovascular Exam: REGULAR RHYTHM, +S1 - GI/Abdominal Exam GI & Abdominal Exam: Soft. absent: Tenderness - Extremities Exam Extremities Exam: Normal Inspection. absent: Tenderness - Neurological Exam Neurological Exam: Altered, CN II-XII Intact - Skin Skin Exam: Dry, Warm Assessment and Plan (1) Acute on chronic renal failure Status: Acute (2) CAD (coronary artery disease) Status: Acute (3) CHF exacerbation Status: Chronic (4) Type 2 diabetes mellitus with diabetic nephropathy Status: Acute (5) CKD stage 4 due to type 2 diabetes mellitus Status: Acute - Assessment and Plan (Free Text) Plan: Continue IV lasix Consider rx with cardiac meds- has EF 25% Treat UTI replete K monitor ALIREZA If not better- consider CABINET MOUNTER
--- NOTE | 2017-08-12 13:58 | CP.PCM.PN ---
Subjective - Date & Time of Evaluation Date of Evaluation: 08/12/17 Time of Evaluation: 11:00 - Subjective Subjective: patient seen and examined Remains intubated on ventilatory support with worsening hypoxemia on 100% FiO2 Sedated Afebrile Urine output 900 cc Seen by nephrology Worsening chest x-ray noted Objective - Vital Signs/Intake and Output Vital Signs (last 24 hours): Temp Pulse Resp BP Pulse Ox 100.3 F H 92 H 18 120/56 L 100 08/12/17 13:22 08/12/17 04:00 08/12/17 04:00 08/12/17 09:15 08/12/17 04:00 Intake and Output: 08/12/17 08/12/17 06:59 18:59 Intake Total 225.4 114.0 Output Total 720 90 Balance -494.6 24.0 - Medications Medications: Current Medications Acetaminophen (Tylenol 650mg/20.3ml Solution Ud) 650 mg PO Q6 PRN PRN Reason: Temperature Last Admin: 08/12/17 13:22 Dose: 650 mg Acetylcysteine (Acetylcysteine 20%) 3 ml PO Q12H [facility] Last Admin: 08/12/17 11:56 Dose: 3 ml Aspirin (Ecotrin) 81 mg PO DAILY [facility] Last Admin: 08/12/17 09:13 Dose: 81 mg Clopidogrel Bisulfate (Plavix) 75 mg PO DAILY [facility] Last Admin: 08/12/17 12:06 Dose: 75 mg Docusate Sodium (Colace) 100 mg PO TID [facility] Last Admin: 08/12/17 09:13 Dose: 100 mg Famotidine (Pepcid) 20 mg PO DAILY [facility] Last Admin: 08/12/17 09:16 Dose: 20 mg Ferric Sodium Gluconate Complex (Ferrlecit) 125 mg IVPB DAILY [facility] Stop: 08/16/17 10:01 Last Admin: 08/12/17 09:13 Dose: 125 mg Furosemide (Lasix) 20 mg IVP DAILY [facility] Last Admin: 08/09/17 09:03 Dose: 20 mg Furosemide (Lasix) 60 mg IVP Q12 [facility] Last Admin: 08/12/17 09:15 Dose: 60 mg Azithromycin 500 mg/ Sodium (Chloride) 250 mls @ 167 mls/hr IVPB Q24H [facility] Last Admin: 08/10/17 10:28 Dose: 167 mls/hr Heparin Sodium/Sodium Chloride (Heparin 58833 Units/250ml 1/2 Normal Saline) 25 ,000 units in 250 mls @ 11.376 mls/hr IV .[id number] PRN; Protocol; 12 UNITS/KG/HR PRN Reason: PROTOCOL Last Titration: 08/11/17 16:00 Dose: 12.53 units/kg/hr, 11.879 mls/hr Nitroglycerin/Dextrose (Nitroglycerin 50 Mg/250 Ml D5w) 50 mg in 250 mls @ 7.5 mls/hr IV .Q24H [facility]; 25 MCG/MIN PRN Reason: Protocol Last Admin: 08/11/17 16:16 Dose: Not Given Potassium Chloride (Potassium Chloride 20 Meq/100 Ml) 20 meq in 100 mls @ 50 mls/hr IVPB ONCE ONE Stop: 08/12/17 13:59 Last Admin: 08/12/17 12:07 Dose: 50 mls/hr Insulin Aspart (Novolog) 0 unit SC Q6H [facility] PRN Reason: Protocol Last Admin: 08/12/17 06:54 Dose: 4 unit Ipratropium [place] (Atrovent) 0.5 mg IH RQ6 PRN PRN Reason: Shortness of Breath Last Admin: 08/12/17 07:21 Dose: 0.5 mg Lorazepam (Ativan) 1 mg IVP Q2H PRN PRN Reason: Agitation Last Admin: 08/11/17 18:24 Dose: 1 mg Metoprolol Succinate (Toprol Xl) 50 mg PO DAILY [facility] Last Admin: 08/12/17 09:17 Dose: 50 mg Nifedipine (Procardia) 30 mg PO Q8H [facility] Last Admin: 08/12/17 12:28 Dose: 30 mg Rosuvastatin Calcium (Crestor) 10 mg PO HS [facility] Last Admin: 08/11/17 22:45 Dose: 10 mg Saccharomyces Boulardii (Florastor) 250 mg PO BID [facility] Last Admin: 08/12/17 09:18 Dose: 250 mg - Labs Labs: 08/12/17 06:18 08/12/17 06:16 PT 13.0 SECONDS (9.7-12.2) H 08/09/17 23:23 INR 1.2 08/09/17 23:23 APTT 66 SECONDS (21-34) H D 08/12/17 06:18 - Head Exam Head Exam: ATRAUMATIC, NORMOCEPHALIC - ENT Exam ENT Exam: Mucous Membranes Moist - Neck Exam Neck Exam: Normal Inspection - Respiratory Exam Respiratory Exam: Decreased Breath Sounds - Cardiovascular Exam Cardiovascular Exam: Irregular Rhythm - GI/Abdominal Exam GI & Abdominal Exam: Distended, Soft - Extremities Exam Extremities Exam: Pedal Edema Assessment and Plan (1) Cardiac arrest Assessment & Plan: status post cardiac arrest and resuscitation On ventilatory support with worsening chest x-ray an hypoxemia Increase PEEP to 10 and/or FiO2 as tolerated Continue Lasix Negative fluid balance Continue antibiotics Continue feeding Status: Acute (2) Pneumonia Status: Acute (3) History of DVT (deep vein thrombosis) Status: Acute (4) CKD (chronic kidney disease) Status: Acute (5) Acute on chronic renal failure Status: Acute (6) CHF (congestive heart failure) Status: Acute
[2017-08-12] MEDS ORDERED: Midazolam 2 MG/2 ML VIAL IVP PRN (14:26)
[2017-08-12] MEDS: Nitroglycerin 50mg in D5W 50 MG/250 ML BOTTLE IV SCH (14:32)
--- NOTE | 2017-08-12 16:04 | CP.PCM.PN ---
Subjective - Date & Time of Evaluation Date of Evaluation: 08/12/17 Time of Evaluation: 15:40 - Subjective Subjective: Medical Attending Note: Patient seen, examined and family present at bedside. Patient responds to his name, will turn his head on command, and will lift both upper and lower extremities. Patient is off sedation. Patient nods his head that he remembers me and recognizes his . Patient has not had bowel movement in 5 days. Objective - Vital Signs/Intake and Output Vital Signs (last 24 hours): Temp Pulse Resp BP Pulse Ox 100.3 F H 92 H 18 120/56 L 100 08/12/17 13:22 08/12/17 04:00 08/12/17 04:00 08/12/17 09:15 08/12/17 04:00 Intake and Output: 08/12/17 08/12/17 06:59 18:59 Intake Total 225.4 114.0 Output Total 720 90 Balance -494.6 24.0 - Medications Medications: Current Medications Acetaminophen (Tylenol 650mg/20.3ml Solution Ud) 650 mg PO Q6 PRN PRN Reason: Temperature Last Admin: 08/12/17 13:22 Dose: 650 mg Acetylcysteine (Acetylcysteine 20%) 3 ml PO Q12H [facility] Last Admin: 08/12/17 11:56 Dose: 3 ml Aspirin (Ecotrin) 81 mg PO DAILY [facility] Last Admin: 08/12/17 09:13 Dose: 81 mg Clopidogrel Bisulfate (Plavix) 75 mg PO DAILY [facility] Last Admin: 08/12/17 12:06 Dose: 75 mg Docusate Sodium (Colace) 100 mg PO TID [facility] Last Admin: 08/12/17 15:29 Dose: 100 mg Famotidine (Pepcid) 20 mg PO DAILY [facility] Last Admin: 08/12/17 09:16 Dose: 20 mg Ferric Sodium Gluconate Complex (Ferrlecit) 125 mg IVPB DAILY [facility] Stop: 08/16/17 10:01 Last Admin: 08/12/17 09:13 Dose: 125 mg Furosemide (Lasix) 20 mg IVP DAILY [facility] Last Admin: 08/09/17 09:03 Dose: 20 mg Furosemide (Lasix) 60 mg IVP Q12 [facility] Last Admin: 08/12/17 09:15 Dose: 60 mg Azithromycin 500 mg/ Sodium (Chloride) 250 mls @ 167 mls/hr IVPB Q24H [facility] Last Admin: 08/10/17 10:28 Dose: 167 mls/hr Heparin Sodium/Sodium Chloride (Heparin 34676 Units/250ml 1/2 Normal Saline) 25 ,000 units in 250 mls @ 11.376 mls/hr IV .[id number] PRN; Protocol; 12 UNITS/KG/HR PRN Reason: PROTOCOL Last Titration: 08/11/17 16:00 Dose: 12.53 units/kg/hr, 11.879 mls/hr Nitroglycerin/Dextrose (Nitroglycerin 50 Mg/250 Ml D5w) 50 mg in 250 mls @ 7.5 mls/hr IV .Q24H [facility]; 25 MCG/MIN PRN Reason: Protocol Last Admin: 08/12/17 14:32 Dose: Not Given Insulin Aspart (Novolog) 0 unit SC Q6H [facility] PRN Reason: Protocol Last Admin: 08/12/17 14:31 Dose: 4 unit Ipratropium [place] (Atrovent) 0.5 mg IH RQ6 PRN PRN Reason: Shortness of Breath Last Admin: 08/12/17 07:21 Dose: 0.5 mg Lorazepam (Ativan) 1 mg IVP Q2H PRN PRN Reason: Agitation Last Admin: 08/12/17 15:20 Dose: 1 mg Metoprolol Succinate (Toprol Xl) 50 mg PO DAILY [facility] Last Admin: 08/12/17 09:17 Dose: 50 mg Midazolam HCl (Versed Inj) 2 mg IVP Q4H PRN PRN Reason: Anxiety Nifedipine (Procardia) 30 mg PO Q8H [facility] Last Admin: 08/12/17 12:28 Dose: 30 mg Rosuvastatin Calcium (Crestor) 10 mg PO HS [facility] Last Admin: 08/11/17 22:45 Dose: 10 mg Saccharomyces Boulardii (Florastor) 250 mg PO BID [facility] Last Admin: 08/12/17 09:18 Dose: 250 mg - Labs Labs: 08/12/17 06:18 08/12/17 06:16 PT 13.0 SECONDS (9.7-12.2) H 08/09/17 23:23 INR 1.2 08/09/17 23:23 APTT 66 SECONDS (21-34) H D 08/12/17 06:18 - Constitutional Appears: Chronically Ill - Head Exam Head Exam: NORMAL INSPECTION - Eye Exam Eye Exam: EOMI, PERRL. absent: Nystagmus, Scleral icterus - Respiratory Exam Respiratory Exam: Decreased Breath Sounds, Rales, Rhonchi, NORMAL BREATHING PATTERN. absent: Respiratory Distress, Stridor - Cardiovascular Exam Cardiovascular Exam: REGULAR RHYTHM, +S1, +S2 - GI/Abdominal Exam GI & Abdominal Exam: Distended, Soft, Normal Bowel Sounds. absent: Firm, Guarding, Rigid, Tenderness, Rebound - Extremities Exam Extremities Exam: Pedal Edema. absent: Tenderness - Neurological Exam Neurological Exam: Alert, Awake, Oriented x3 Neuro motor strength exam: Left Upper Extremity: 4, Right Upper Extremity: 4, Left Lower Extremity: 4, Right Lower Extremity: 4 Additional comments: negative babinski's - Psychiatric Exam Psychiatric exam: Normal Affect, Normal Mood - Skin Skin Exam: Dry, Intact, Normal Color, Warm Assessment and Plan - Assessment and Plan (Free Text) Assessment: (1) Acute Respiratory Failure Cardiac Arrest Pulmonary Edema NONSTEMI Assessment and Plan: * Code Blue on 08/10: asystole, cardiopulmonary resuscitative measures initiated , requiring 3 epis, bicarbonate, ROSC achieved and intubated and brought to the ICU for further management * 08/10: Central line placed by ICU; placed on tridil drip; heparin drip c/w * 08/11: Patient placed on Lasix IV. On heparin drip. No plans for cardiac cath at time time. Chest Xray (08/11/17): NG tube extending into the stomach. Endotracheal tube extending into the mild thoracic trachea. Left sided pacemaker. multiple overlying external wires and tubing, Moderate severe venous congestion with prominent confluent airspace opacities in the mid to lower lung zones with associated small to moderate bilateral pleural effusions. scattered nodular densities in both lungs. Cardiomegaly. Degenerative changes in the spine and shoulders. * 08/12: Chest xray (08/12/17): right basilar opacity. Small right pleural effusion. Lines and tubes unchanged.-->C/w Lasix. Discussed with Dr. Mena (pulm) , recommended for CT Chest w/o contrast for possible ARDS. increased peep 10 (3) Chest pain Assessment and Plan: * Cardiology (Dr. Cortés) on board-->help appreciated * All trops WNL; Troponin positive in light of CPR * EKG x2 = Sinus tachycardia notes with possible left atrial enlargement; no apparent T segment elevations in contiguous leads * Heparin drip restarted * Patient's cardiac catherization cancelled secondary to rise in creatinine (2.3 ) on 08/09/17. * Patient has hx of abnormal stress test. Discussed with cardiology and nephrology given change in Cr on 08/09. * Echocardiogram (08/08/17): left ventricle systolic function is severely impaired. EF: 25-30%; global hypokinesis of left ventricle mild aortic regurgitation. Mitral regurgitation is moderate. Moderate-severe pulmonary hypertesnion * hx of ACID * Aspirin 81mg PO daily * Plavix 75mg PO daily * Lasix 60mg IV Q 12hours * Crestor 10mg POqHS * Metoprolol Succinate 50mg PO daily * Procardia 30mg PO Q 8H * Lasix 60mg IV Q16 * Off Arb secondary to ARF * TSH: 1.16; T4: 1.53 (4) Acute Systolic CHF exacerbation Assessment and Plan: * Transferred to the ICU on 08/10 following cardiac arrest and intubation. * Echocardiogram (08/08/17): left ventrcile systolic function is severely impaired. EF: 25-30%; global hypokinesis of left ventricle mild aortic regurgitation. Mitral regurgitation is moderate. Moderate-severe pulmonary hypertension * Height of bed at 45 degrees, Strict ins and outs, monitor daily weights * Start Lasix 60mg IV Q 12hours * Aspirin 81mg PO daily * Plavix 75mg PO daily * Lasix 60mg IV Q 12hours * Crestor 10mg POqHS * Metoprolol Succinate 50mg PO daily * Procardia 30mg PO Q 8H * Off Arb secondary to ARF Status: Acute (5) Pneumonia Assessment and Plan: * Pulmonary (Dr. Mena) on board-->help appreciated * Infectious Disease (Dr. Lawrence)-->help appreciated * Rocephin 1 gram IV q daily and d/c azithromycin 500mg IV q daily SE prolong QT on 08/10 * Rapid A strep, Influenza A and B studies, Urine Legionella, Mycoplasma studies = Negative * Florastor 250mg PO bid * +Strep Pneumoniae in the urine * 08/12: Will repeat urine studies and exchange out the jaquez Status: Acute (6) CAD (coronary artery disease) Assessment and Plan: * Hx of cardiac stent in the past * Heparin Drip * Cardiac cath on hold given events on 08/10 Status: Acute (7) HTN (hypertension) Assessment and Plan: * Metoprolol, Procardia and d/c Cozaar. (Hold parameters in place) following code blue * Tridrip * Cont to monitor Status: Chronic (8) CKD (chronic kidney disease) Assessment and Plan: * Dr. Miranda (nephrology) consulted on the case * Hx of CKD * GFR 45 which appears to be around baseline * Stopped ARB given rise in CR * Off IV fluids given pulmonary edema * Start Lasix 60mg IV Q 12hours Status: Acute (9) Diabetes mellitus Assessment and Plan: * Accuchecks QAC and Hs * NISS- High Dose * A1c 8.4 * Hold home medications at this time Status: Chronic (10) HLD (hyperlipidemia) Assessment and Plan: * On Crestor 10 mg Po HS * Dietary counseling enforced Status: Chronic (11) Constipation Assessment and Plan: * Will need to monitor; has not had a bowel movement in 5 days * Colace 100mg PO TID * 08/12: Will given ducolax suppository X1 Status: Chronic (12) Anemia Assessment and Plan: * Heme-oncology (Dr. Giles bender) on board-->help appreciated * Likely iron deficiency anemia based on prior admissions * Ferritin 27.4, Iron 22, TIBC 322, % Saturation 7 * Ferric Sodium Gluconate 125mg IVPB daily (active 08/08-08/16) * Monitor Hgb/Hct Status: Chronic (13) History of DVT (deep vein thrombosis) Assessment and Plan: * Patient was previously on Eliquis for a prior history of DVT. * Repeat dopplers are negative for DVT * On Heparin Drip Status: Acute (14) Abnormal UA * Exchange jaquez out and repeat urine cultures (15) Confusion; Alzheimer's Dementia Assessment and Plan: * Per daughter, patient has been getting bouts of confusion over the past year but appears at baseline. Patient has not seen formal neurology as outpatient per daughter. Per , prior to event, noted Alzheimers' disease dx one year ago * CT head w/o contrast (08/10/17):acute os subacute lacune infarct is not excluded in the left basal ganglia inferiorly with definitive chronic lacune identified in the right basal ganglia superiorly. No acute or subacute lobar brain infarction is appreciable by standard CT criteria. Mild age-related neuro degenerative changes are identifed. No acute intracranial hemorrhage or mass is identified throughout * 08/11: Patient gets agitated and will fight to pull the intubation tube out per nursing. Was placed on sedation and Ativan PRN * 08/12: patient is responsive to questions, able to move all extremities, off sedation. Patient is on PRN Versed and Ativan PRN. Will respond to yes and no questions (14) Prophylactic measure Assessment and Plan: * pepcid 20mg PO daily * On Heparin Drip * Cardiac cath cancelled on 08/09/17 secondary to acute rise in Cr * Transferred to ICU s/p code blue and respiratory failure on 08/10 Status: Acute
[2017-08-12 19:03] LABS: RBC URINE 87 /hpf (0-3); URINE BACTERIA OCC (<OCC); URINE BILIRUBIN NEGATIVE (NEGATIVE); URINE BLOOD 3+ (NEGATIVE); URINE COLOR Yellow (YELLOW); URINE GLUCOSE (UA) NORMAL (Normal); URINE KETONE NEGATIVE (NEGATIVE); URINE LEUKOCYTE ESTERASE 3+ Leu/uL (Negative); URINE PROTEIN NEGATIVE (NEGATIVE); URINE UROBILINOGEN NORMAL mg/dL (0.2-1.0); WBC URINE 44 /hpf (0-5)
--- NOTE | 2017-08-12 20:01 | PCM.PROC ---
Procedures Attestation:: I certify that I have explained the specified Operation(s) or Procedure(s), risks, benefits and reasonable alternatives to the Patient and/or other person responsible. The opportunity was given to ask questions and all questions answered - Intubation Sedative: Etomidate Mg Given: 20 Laryngoscope: Genesis ET Tube Size: 8.0 ET Tube Uncuffed: No ET Tube Secured at Depth: 24 ET Tube Secured Locarion: Lips ET Tube Placement Confirmation: Breath Sounds Equal Bilaterally, Confirmation w/ Capnometry Patient Tolerated Procedure: Well Procedure Immediate Complications: None Additional comments: Pt self extubated had been on fio2 90% and Peep 18. Re-intubated immediately without complications. CXR ordered post procedure.
[2017-08-12] MEDS: Piperacill/Tazo 2.25gm in Dex 2.25 GM/50 ML BAG IVPB SCH (21:00)
[2017-08-13] MEDS: (Novolog) Insulin Aspart, Recombinant 100 u/ml 10 ml vial SC SCH ×5 (00:45→23:48)
[2017-08-13] MEDS: Heparin25000 units/250ml 1/2NS 25,000 UNITS/250 ML BAG IV PRN ×2 (03:00→22:34)
[2017-08-13] MEDS: Acetaminophen 650mg/20.3ml solution UD PO PRN ×2 (03:21→10:45)
[2017-08-13] MEDS: Piperacill/Tazo 2.25gm in Dex 2.25 GM/50 ML BAG IVPB SCH ×3 (03:30→20:20)
[2017-08-13 05:57] LABS: ABG ALLEN TEST POS; ABG MECHANICAL RATE 18; ARTERIAL BLOOD GAS MODE PRVC; ARTERIAL BLOOD HGB O2 SAT 94.8 % (95.0-98.0); ATERIAL BLOOD GAS PEEP 16; CARBOXYHEMOGLOBIN 2.2 % (0.5-1.5); DRAW SITE R RAD; HHB 2.3 % (0.0-5.0); METHEMOGLOBIN 0.7 % (0.0-3.0)
[2017-08-13 06:31] LABS: BASO # 0.1 K/uL (0.0-0.2); BASO % 0.4 % (0.0-2.0); EOS # 0.2 K/uL (0.0-0.7); EOS % 1.2 % (0.0-4.0); HEMATOCRIT 28.2 % (35.0-51.0); LYMPH # 1.2 K/uL (1.0-4.3); LYMPH % 8.9 % (20.0-40.0); MEAN CELL VOLUME 73.5 fL (80.0-94.0); MEAN CORPUSCULAR HEMOGLOBIN 22.9 pg (27.0-31.0); MEAN CORPUSCULAR HGB CONC 31.2 g/dL (33.0-37.0); MONO # 0.8 K/uL (0.0-0.8); NRBC % 0.1 % (0.0-2.0); PLATELET COUNT 291 K/uL (130-400); RED CELL DISTRIBUTION WIDTH 21.1 % (11.5-14.5); WHITE BLOOD COUNT 13.9 K/uL (4.8-10.8)
[2017-08-13 06:47] LABS: ALB/GLOB RATIO 0.9 (1.0-2.1); BILIRUBIN,TOTAL 0.5 mg/dL (0.2-1.3); CALCIUM 8.2 mg/dl (8.6-10.4); POTASSIUM 3.5 mmol/L (3.6-5.2)
--- NOTE | 2017-08-13 07:37 | CP.PCM.PN ---
Subjective - Date & Time of Evaluation Date of Evaluation: 08/13/17 Time of Evaluation: 07:35 - Subjective Subjective: Medical Attending Note: Patient seen and examined this morning. Discussed with ICU nurse, patient was re -intubated last night after he self-extubated and placed back on sedation. Patient is off Tridil drip. Patient's urine output has decreased. No stool overnight. Unable to ROS secondary to clinical condition. Patient is moving all extremities. Objective - Vital Signs/Intake and Output Vital Signs (last 24 hours): Temp Pulse Resp BP Pulse Ox 101.1 F H 87 22 114/51 L 99 08/13/17 04:00 08/13/17 07:00 08/13/17 07:00 08/13/17 06:34 08/13/17 07:00 Intake and Output: 08/13/17 08/13/17 06:59 18:59 Intake Total 545.2 17.6 Output Total 350 30 Balance 195.2 -12.4 - Medications Medications: Current Medications Acetaminophen (Tylenol 650mg/20.3ml Solution Ud) 650 mg PO Q6 PRN PRN Reason: Temperature Last Admin: 08/13/17 03:21 Dose: 650 mg Aspirin (Ecotrin) 81 mg PO DAILY [facility] Last Admin: 08/12/17 09:13 Dose: 81 mg Clopidogrel Bisulfate (Plavix) 75 mg PO DAILY [facility] Last Admin: 08/12/17 12:06 Dose: 75 mg Docusate Sodium (Colace) 100 mg PO TID [facility] Last Admin: 08/12/17 18:55 Dose: 100 mg Famotidine (Pepcid) 20 mg PO DAILY [facility] Last Admin: 08/12/17 09:16 Dose: 20 mg Ferric Sodium Gluconate Complex (Ferrlecit) 125 mg IVPB DAILY [facility] Stop: 08/16/17 10:01 Last Admin: 08/12/17 09:13 Dose: 125 mg Furosemide (Lasix) 60 mg IVP Q12 [facility] Last Admin: 08/12/17 19:40 Dose: 60 mg Heparin Sodium/Sodium Chloride (Heparin 27557 Units/250ml 1/2 Normal Saline) 25 ,000 units in 250 mls @ 11.376 mls/hr IV .[id number] PRN; Protocol; 12 UNITS/KG/HR PRN Reason: PROTOCOL Last Admin: 08/13/17 03:00 Dose: 12.53 units/kg/hr, 11.879 mls/hr Piperacillin Sod/Tazobactam Sod (Zosyn 2.25 Gm Iv Premix) 2.25 gm in 50 mls @ 100 mls/hr IVPB Q8H [facility] Last Admin: 08/13/17 03:30 Dose: 100 mls/hr Propofol (Diprivan) 1,000 mg in 100 mls @ 2.844 mls/hr IV .Q24H PRN; Protocol; 5 MCG/KG/MIN PRN Reason: TITRATE PER MD ORDER Last Titration: 08/12/17 22:00 Dose: 10.02 mcg/kg/min, 5.7 mls/hr Insulin Aspart (Novolog) 0 unit SC Q6H [facility] PRN Reason: Protocol Last Admin: 08/13/17 00:45 Dose: 4 unit Ipratropium [place] (Atrovent) 0.5 mg IH RQ6 PRN PRN Reason: Shortness of Breath Last Admin: 08/12/17 07:21 Dose: 0.5 mg Lorazepam (Ativan) 1 mg IVP Q2H PRN PRN Reason: Agitation Last Admin: 08/12/17 15:20 Dose: 1 mg Metoprolol Succinate (Toprol Xl) 50 mg PO DAILY [facility] Last Admin: 08/12/17 09:17 Dose: 50 mg Midazolam HCl (Versed Inj) 2 mg IVP Q4H PRN PRN Reason: Anxiety Nifedipine (Procardia) 30 mg PO Q8H [facility] Last Admin: 08/13/17 03:40 Dose: 30 mg Rosuvastatin Calcium (Crestor) 10 mg PO HS [facility] Last Admin: 08/12/17 21:05 Dose: 10 mg Saccharomyces Boulardii (Florastor) 250 mg PO BID [facility] Last Admin: 08/12/17 18:56 Dose: 250 mg - Labs Labs: 08/13/17 06:26 08/13/17 06:25 PT 13.0 SECONDS (9.7-12.2) H 08/09/17 23:23 INR 1.2 08/09/17 23:23 APTT 60 SECONDS (21-34) H D 08/13/17 06:26 - Constitutional Appears: Chronically Ill - Head Exam Head Exam: NORMAL INSPECTION - Eye Exam Eye Exam: EOMI - ENT Exam ENT Exam: Mucous Membranes Moist - Respiratory Exam Respiratory Exam: Decreased Breath Sounds, Rales. absent: Respiratory Distress , Stridor Additional comments: intubated on vent - Cardiovascular Exam Cardiovascular Exam: REGULAR RHYTHM, +S1, +S2 - GI/Abdominal Exam GI & Abdominal Exam: Distended, Soft, Normal Bowel Sounds. absent: Firm, Guarding, Rigid, Tenderness, Rebound - Extremities Exam Extremities Exam: Pedal Edema. absent: Tenderness - Skin Skin Exam: Dry, Intact, Normal Color, Warm Assessment and Plan - Assessment and Plan (Free Text) Assessment: (1) Acute Respiratory Failure Cardiac Arrest Pulmonary Edema NONSTEMI Assessment and Plan: * Code Blue on 08/10: asystole, cardiopulmonary resuscitative measures initiated , requiring 3 epis, bicarbonate, ROSC achieved and intubated and brought to the ICU for further management * 08/10: Central line placed by ICU; placed on tridil drip; heparin drip c/w * 08/11: Patient placed on Lasix IV. On heparin drip. No plans for cardiac cath at time time. Chest Xray (08/11/17): NG tube extending into the stomach. Endotracheal tube extending into the mild thoracic trachea. Left sided pacemaker. multiple overlying external wires and tubing, Moderate severe venous congestion with prominent confluent airspace opacities in the mid to lower lung zones with associated small to moderate bilateral pleural effusions. scattered nodular densities in both lungs. Cardiomegaly. Degenerative changes in the spine and shoulders. * 08/12: Chest xray (08/12/17): right basilar opacity. Small right pleural effusion. Lines and tubes unchanged.-->C/w Lasix. Discussed with Dr. Mena (pulm) , recommended for CT Chest w/o contrast for possible ARDS. increased peep 10 * 08/13: pending chest /abdomen xray for this morning; self-extubated and reintubated overnight; off tridil drip secondary to hypotension post intubation ; on heparin drip (3) Chest pain Assessment and Plan: * Cardiology (Dr. Cortés) on board-->help appreciated * All trops WNL; Troponin positive in light of CPR * EKG x2 = Sinus tachycardia notes with possible left atrial enlargement; no apparent T segment elevations in contiguous leads * Heparin drip restarted * Patient's cardiac catherization cancelled secondary to rise in creatinine (2.3 ) on 08/09/17. * Patient has hx of abnormal stress test. Discussed with cardiology and nephrology given change in Cr on 08/09. * Echocardiogram (08/08/17): left ventricle systolic function is severely impaired. EF: 25-30%; global hypokinesis of left ventricle mild aortic regurgitation. Mitral regurgitation is moderate. Moderate-severe pulmonary hypertesnion * hx of ACID * on Heparin drip * Aspirin 81mg PO daily * Plavix 75mg PO daily * Lasix 60mg IV Q 12hours * Crestor 10mg POqHS * Metoprolol Succinate 50mg PO daily * Procardia 30mg PO Q 8H * Lasix 60mg IV Q16 * Off Arb secondary to ARF * TSH: 1.16; T4: 1.53 (4) Acute Systolic CHF exacerbation Assessment and Plan: * Transferred to the ICU on 08/10 following cardiac arrest and intubation. * Echocardiogram (08/08/17): left ventrcile systolic function is severely impaired. EF: 25-30%; global hypokinesis of left ventricle mild aortic regurgitation. Mitral regurgitation is moderate. Moderate-severe pulmonary hypertension * Height of bed at 45 degrees, Strict ins and outs, monitor daily weights * Start Lasix 60mg IV Q 12hours * Aspirin 81mg PO daily * Plavix 75mg PO daily * Lasix 60mg IV Q 12hours * Crestor 10mg POqHS * Metoprolol Succinate 50mg PO daily * Procardia 30mg PO Q 8H * Off Arb secondary to ARF Status: Acute (5) Pneumonia Assessment and Plan: * Pulmonary (Dr. Mena) on board-->help appreciated * Infectious Disease (Dr. Lawrence)-->help appreciated * Rapid A strep, Influenza A and B studies, Urine Legionella, Mycoplasma studies = Negative * Florastor 250mg PO bid * +Strep Pneumoniae in the urine * 08/12: Will repeat urine studies and exchange out the jaquez * 08/13: Off Rocephin; start Zosyn 2.25 IV Q 8 hours; f/u urine studies Status: Acute (6) CAD (coronary artery disease) Assessment and Plan: * Hx of cardiac stent in the past * Heparin Drip * Cardiac cath on hold given events on 08/10 Status: Acute (7) HTN (hypertension) Assessment and Plan: * Metoprolol, Procardia and d/c Cozaar. (Hold parameters in place) following code blue * off Tridrip 08/12 * Cont to monitor Status: Chronic (8) CKD (chronic kidney disease) Assessment and Plan: * Dr. Miranda (nephrology) consulted on the case * Hx of CKD * GFR 45 which appears to be around baseline * Stopped ARB given rise in CR * Off IV fluids given pulmonary edema * Start Lasix 60mg IV Q 12hours * Monitor in and output * Possible [employer]? Status: Acute (9) Diabetes mellitus Assessment and Plan: * Accuchecks QAC and Hs * NISS- High Dose * A1c 8.4 * Hold home medications at this time Status: Chronic (10) HLD (hyperlipidemia) Assessment and Plan: * On Crestor 10 mg Po HS * Dietary counseling enforced Status: Chronic (11) Constipation Assessment and Plan: * Will need to monitor; has not had a bowel movement in 5 days * Colace 100mg PO TID * 08/12: Will given ducolax suppository X1 * 08/13: has not had bowel movement; ordered for abdominal/chest xray in light of abdominal distension Status: Chronic (12) Anemia Assessment and Plan: * Heme-oncology (Dr. Giles bender) on board-->help appreciated * Likely iron deficiency anemia based on prior admissions * Ferritin 27.4, Iron 22, TIBC 322, % Saturation 7 * Ferric Sodium Gluconate 125mg IVPB daily (active 08/08-08/16) * Monitor Hgb/Hct Status: Chronic (13) History of DVT (deep vein thrombosis) Assessment and Plan: * Patient was previously on Eliquis for a prior history of DVT. * Repeat dopplers are negative for DVT * On Heparin Drip Status: Acute (14) Abnormal UA * Exchange jaquez out and repeat urine cultures--->unclear if jaquez was exchanged out (15) Confusion; Alzheimer's Dementia Assessment and Plan: * Per daughter, patient has been getting bouts of confusion over the past year but appears at baseline. Patient has not seen formal neurology as outpatient per daughter. Per , prior to event, noted Alzheimers' disease dx one year ago * CT head w/o contrast (08/10/17):acute os subacute lacune infarct is not excluded in the left basal ganglia inferiorly with definitive chronic lacune identified in the right basal ganglia superiorly. No acute or subacute lobar brain infarction is appreciable by standard CT criteria. Mild age-related neuro degenerative changes are identifed. No acute intracranial hemorrhage or mass is identified throughout * 08/11: Patient gets agitated and will fight to pull the intubation tube out per nursing. Was placed on sedation and Ativan PRN * 08/12: patient is responsive to questions, able to move all extremities, off sedation. Patient is on PRN Versed and Ativan PRN. Will respond to yes and no questions * 08/13: Back on sedation since reintubation; patient is moving all extremities (14) Prophylactic measure Assessment and Plan: * pepcid 20mg PO daily * On Heparin Drip * Cardiac cath cancelled on 08/09/17 secondary to acute rise in Cr * Transferred to ICU s/p code blue and respiratory failure on 08/10 Status: Acute
--- NOTE | 2017-08-13 07:47 | CP.PCM.PN ---
Subjective - Date & Time of Evaluation Date of Evaluation: 08/12/17 Time of Evaluation: 17:25 - Subjective Subjective: Patient seen and evaluated Intubated Responsive and moving all extremities Objective - Vital Signs/Intake and Output Vital Signs (last 24 hours): Temp Pulse Resp BP Pulse Ox 101.1 F H 87 22 114/51 L 99 08/13/17 04:00 08/13/17 07:00 08/13/17 07:00 08/13/17 06:34 08/13/17 07:00 Intake and Output: 08/13/17 08/13/17 06:59 18:59 Intake Total 545.2 17.6 Output Total 350 30 Balance 195.2 -12.4 - Medications Medications: Current Medications Acetaminophen (Tylenol 650mg/20.3ml Solution Ud) 650 mg PO Q6 PRN PRN Reason: Temperature Last Admin: 08/13/17 03:21 Dose: 650 mg Aspirin (Ecotrin) 81 mg PO DAILY [facility] Last Admin: 08/12/17 09:13 Dose: 81 mg Clopidogrel Bisulfate (Plavix) 75 mg PO DAILY [facility] Last Admin: 08/12/17 12:06 Dose: 75 mg Docusate Sodium (Colace) 100 mg PO TID [facility] Last Admin: 08/12/17 18:55 Dose: 100 mg Famotidine (Pepcid) 20 mg PO DAILY [facility] Last Admin: 08/12/17 09:16 Dose: 20 mg Ferric Sodium Gluconate Complex (Ferrlecit) 125 mg IVPB DAILY [facility] Stop: 08/16/17 10:01 Last Admin: 08/12/17 09:13 Dose: 125 mg Furosemide (Lasix) 60 mg IVP Q12 [facility] Last Admin: 08/12/17 19:40 Dose: 60 mg Heparin Sodium/Sodium Chloride (Heparin 68332 Units/250ml 1/2 Normal Saline) 25 ,000 units in 250 mls @ 11.376 mls/hr IV .[id number] PRN; Protocol; 12 UNITS/KG/HR PRN Reason: PROTOCOL Last Admin: 08/13/17 03:00 Dose: 12.53 units/kg/hr, 11.879 mls/hr Piperacillin Sod/Tazobactam Sod (Zosyn 2.25 Gm Iv Premix) 2.25 gm in 50 mls @ 100 mls/hr IVPB Q8H [facility] Last Admin: 08/13/17 03:30 Dose: 100 mls/hr Propofol (Diprivan) 1,000 mg in 100 mls @ 2.844 mls/hr IV .Q24H PRN; Protocol; 5 MCG/KG/MIN PRN Reason: TITRATE PER MD ORDER Last Titration: 08/12/17 22:00 Dose: 10.02 mcg/kg/min, 5.7 mls/hr Insulin Aspart (Novolog) 0 unit SC Q6H [facility] FERNANDO PRN Reason: Protocol Last Admin: 08/13/17 00:45 Dose: 4 unit Ipratropium [place] (Atrovent) 0.5 mg IH RQ6 PRN PRN Reason: Shortness of Breath Last Admin: 08/12/17 07:21 Dose: 0.5 mg Lorazepam (Ativan) 1 mg IVP Q2H PRN PRN Reason: Agitation Last Admin: 08/12/17 15:20 Dose: 1 mg Metoprolol Succinate (Toprol Xl) 50 mg PO DAILY [facility] Last Admin: 08/12/17 09:17 Dose: 50 mg Midazolam HCl (Versed Inj) 2 mg IVP Q4H PRN PRN Reason: Anxiety Nifedipine (Procardia) 30 mg PO Q8H [facility] Last Admin: 08/13/17 03:40 Dose: 30 mg Rosuvastatin Calcium (Crestor) 10 mg PO HS [facility] Last Admin: 08/12/17 21:05 Dose: 10 mg Saccharomyces Boulardii (Florastor) 250 mg PO BID [facility] Last Admin: 08/12/17 18:56 Dose: 250 mg - Labs Labs: 08/13/17 06:26 08/13/17 06:25 PT 13.0 SECONDS (9.7-12.2) H 08/09/17 23:23 INR 1.2 08/09/17 23:23 APTT 60 SECONDS (21-34) H D 08/13/17 06:26 - Head Exam Head Exam: ATRAUMATIC, NORMAL INSPECTION - Eye Exam Eye Exam: EOMI, PERRL - ENT Exam ENT Exam: Mucous Membranes Moist - Neck Exam Neck Exam: Full ROM - Respiratory Exam Respiratory Exam: Clear to Ausculation Bilateral, NORMAL BREATHING PATTERN - Cardiovascular Exam Cardiovascular Exam: +S1, +S2 - GI/Abdominal Exam GI & Abdominal Exam: Soft, Normal Bowel Sounds - Extremities Exam Extremities Exam: Full ROM - Neurological Exam Neurological Exam: Alert - Skin Skin Exam: Warm Assessment and Plan - Assessment and Plan (Free Text) Assessment: 1. Acute on Chronic systolic CHF s/p AICD 2. CKD 3. CAD with abnormal stress test 4. respiratory failure Continue Diuretics Plan for cath once patient more stable renally
--- NOTE | 2017-08-13 08:18 | RAD ---
HISTORY: post intubation COMPARISON: Comparison is made to the previous study dated 08/12/2017 at 7:47 FINDINGS: LUNGS: Interval significant improvement in the lungs and almost complete resolving of the previously seen hazy opacities since the previous exam. The ET tube is again seen at appropriate position. PLEURA: Blunting of both costophrenic angles again noted. CARDIOVASCULAR: The cardiac silhouette is mildly enlarged. OSSEOUS STRUCTURES: No significant abnormalities. VISUALIZED UPPER ABDOMEN: The NG tube seen extending to the stomach. OTHER FINDINGS: Left-sided single wire AIDC is again seen in place. IMPRESSION: Interval significant improvement in the lungs since the previous exam. Appropriate position of the support devices.
--- NOTE | 2017-08-13 09:22 | RAD ---
PROCEDURE: CHEST RADIOGRAPH, 1 VIEW HISTORY: intubated COMPARISON: Comparison is made to 08/12/2017 FINDINGS: LUNGS: Left lower lobe atelectasis is new compared to the previous exam. [id number] pulmonary vascular congestion is seen. The ET tube is seen at appropriate position. PLEURA: Left pleural effusion is noted. CARDIOVASCULAR: The cardiac silhouette is mildly enlarged. Left sided single wire pacemaker/ AICD is seen in place. OSSEOUS STRUCTURES: No significant abnormalities. VISUALIZED UPPER ABDOMEN: The NG tube seen extending to the stomach. OTHER FINDINGS: None. IMPRESSION: Suspicious for left pleural effusion and left lower lobe/lung base atelectasis. Appropriate position of the support devices.
--- NOTE | 2017-08-13 09:32 | RAD ---
HISTORY: pulmonary edema/infiltrate/abdominal distension COMPARISON: Comparison is made to 10/28/2011 FINDINGS: BOWEL: The bowel-gas pattern is nonspecific and non obstructive. No no significant dilated small bowel loops noted. . No free air. BONES: Normal. OTHER FINDINGS: Right-sided femoral central line is seen in place. IMPRESSION: No evidence of small bowel obstruction. Nonspecific bowel gas pattern.
[2017-08-13 10:03] LABS: NEUTROPHIL 86 % (50-75); TOTAL CELLS COUNTED 100
[2017-08-13 10:05] LABS: LARGE PLATELETS PRESENT
[2017-08-13] MEDS: Ferric Sodium Gluconat Complex 62.5 mg/5 ml Vial IVPB SCH (10:35)
--- NOTE | 2017-08-13 10:54 | CP.PCM.PN ---
Subjective - Date & Time of Evaluation Date of Evaluation: 08/13/17 Time of Evaluation: 10:51 - Subjective Subjective: on vent fio2 80%, peep 16 good UOP with negative balance ROS- unable to obtain as intubated and sedated Objective - Vital Signs/Intake and Output Vital Signs (last 24 hours): Temp Pulse Resp BP Pulse Ox 100.7 F H 87 22 114/51 L 99 08/13/17 07:53 08/13/17 07:00 08/13/17 07:00 08/13/17 06:34 08/13/17 07:00 Intake and Output: 08/13/17 08/13/17 06:59 18:59 Intake Total 545.2 17.6 Output Total 350 30 Balance 195.2 -12.4 - Medications Medications: Current Medications Acetaminophen (Tylenol 650mg/20.3ml Solution Ud) 650 mg PO Q6 PRN PRN Reason: Temperature Last Admin: 08/13/17 03:21 Dose: 650 mg Acetazolamide (Diamox 500 Mg Inj) 500 mg IV ONCE ONE Stop: 08/13/17 10:40 Aspirin (Ecotrin) 81 mg PO DAILY [facility] Last Admin: 08/13/17 10:22 Dose: 81 mg Clopidogrel Bisulfate (Plavix) 75 mg PO DAILY [facility] Last Admin: 08/13/17 10:22 Dose: 75 mg Famotidine (Pepcid) 20 mg PO DAILY [facility] Last Admin: 08/13/17 10:22 Dose: 20 mg Ferric Sodium Gluconate Complex (Ferrlecit) 125 mg IVPB DAILY [facility] Stop: 08/16/17 10:01 Last Admin: 08/12/17 09:13 Dose: 125 mg Furosemide (Lasix) 60 mg IVP Q12 [facility] Last Admin: 08/12/17 19:40 Dose: 60 mg Heparin Sodium/Sodium Chloride (Heparin 22239 Units/250ml 1/2 Normal Saline) 25 ,000 units in 250 mls @ 11.376 mls/hr IV .[id number] PRN; Protocol; 12 UNITS/KG/HR PRN Reason: PROTOCOL Last Admin: 08/13/17 03:00 Dose: 12.53 units/kg/hr, 11.879 mls/hr Piperacillin Sod/Tazobactam Sod (Zosyn 2.25 Gm Iv Premix) 2.25 gm in 50 mls @ 100 mls/hr IVPB Q8H [facility] Last Admin: 08/13/17 03:30 Dose: 100 mls/hr Propofol (Diprivan) 1,000 mg in 100 mls @ 2.844 mls/hr IV .Q24H PRN; Protocol; 5 MCG/KG/MIN PRN Reason: TITRATE PER MD ORDER Last Titration: 08/12/17 22:00 Dose: 10.02 mcg/kg/min, 5.7 mls/hr Insulin Aspart (Novolog) 0 unit SC Q6H [facility] PRN Reason: Protocol Last Admin: 08/13/17 00:45 Dose: 4 unit Ipratropium [place] (Atrovent) 0.5 mg IH RQ6 PRN PRN Reason: Shortness of Breath Last Admin: 08/12/17 07:21 Dose: 0.5 mg Lorazepam (Ativan) 1 mg IVP Q2H PRN PRN Reason: Agitation Last Admin: 08/12/17 15:20 Dose: 1 mg Metoprolol Succinate (Toprol Xl) 50 mg PO DAILY [facility] Last Admin: 08/12/17 09:17 Dose: 50 mg Midazolam HCl (Versed Inj) 2 mg IVP Q4H PRN PRN Reason: Anxiety Nifedipine (Procardia) 30 mg PO Q8H [facility] Last Admin: 08/13/17 03:40 Dose: 30 mg Rosuvastatin Calcium (Crestor) 10 mg PO HS [facility] Last Admin: 08/12/17 21:05 Dose: 10 mg Saccharomyces Boulardii (Florastor) 250 mg PO BID [facility] Last Admin: 08/12/17 18:56 Dose: 250 mg Senna/Docusate Sodium (Senokot S 50 Mg-8.6 Mg) 1 tab PO BID [facility] - Labs Labs: 08/13/17 06:26 08/13/17 06:25 PT 13.0 SECONDS (9.7-12.2) H 08/09/17 23:23 INR 1.2 08/09/17 23:23 APTT 60 SECONDS (21-34) H D 08/13/17 06:26 - Constitutional Appears: No Acute Distress - Eye Exam Eye Exam: PERRL - ENT Exam Additional comments: et tube in place - Respiratory Exam Respiratory Exam: Clear to Ausculation Bilateral. absent: Rhonchi, Wheezes - Cardiovascular Exam Cardiovascular Exam: REGULAR RHYTHM, +S1, +S2 - GI/Abdominal Exam GI & Abdominal Exam: Soft. absent: Tenderness - Extremities Exam Extremities Exam: absent: Pedal Edema - Neurological Exam Neurological Exam: absent: Alert, Awake, Oriented x3 - Skin Skin Exam: Normal Color, Warm Assessment and Plan (1) Acute on chronic renal failure Status: Acute (2) CHF (congestive heart failure) Status: Acute (3) CKD stage 4 secondary to hypertension Status: Acute (4) Cardiac arrest Status: Acute (5) CAD (coronary artery disease) Status: Acute - Assessment and Plan (Free Text) Plan: wean down fio2 as tolerated maintain lasix monitor potassium levels
[2017-08-13] MEDS: Metoprolol Succinate 50 mg XL Tab PO SCH (10:56)
[2017-08-13] MEDS: Saccharomyces Boulardi 250 mg Cap PO SCH (11:05)
[2017-08-13] MEDS: Propofol 10 mg/ml 1,000 MG/100 ML VIAL IV PRN ×3 (11:05→21:20)
[2017-08-13] MEDS: Docusate-Senna 50 mg-8.6 mg Tab PO SCH ×2 (13:00→18:25)
[2017-08-13 13:42] LABS: MAGNESIUM 2.2 mg/dL (1.6-2.3); PHOSPHOROUS 3.9 mg/dL (2.5-4.5)
[2017-08-13 13:53] LABS: ABG ALLEN TEST POS; ABG MECHANICAL RATE 18; ARTERIAL BLOOD HGB O2 SAT 96.5 % (95.0-98.0); ATERIAL BLOOD GAS PEEP 16; CARBOXYHEMOGLOBIN 1.5 % (0.5-1.5); DRAW SITE LRA; HHB 0.9 % (0.0-5.0)
--- NOTE | 2017-08-13 14:13 | CP.CCUPN ---
CCU Subjective - Physician Review Events Since Last Encounter (Free Text): 08/13/17 14:10 sedated, intubated CCU Objective - Vital Signs / Intake & Output Vital Signs (Last 4 hours): Vital Signs Temp Pulse Resp BP Pulse Ox 08/13/17 13:00 74 21 98 08/13/17 12:32 75 21 92/44 L 98 08/13/17 12:30 73 22 98 08/13/17 12:00 75 24 97 08/13/17 11:43 100.6 F H 08/13/17 11:33 74 20 92/40 L 85 L 08/13/17 11:30 75 20 99 08/13/17 11:00 94 H 13 122/53 L 98 08/13/17 10:45 100.9 F H 08/13/17 10:32 87 22 122/53 L 100 08/13/17 10:30 85 24 99 Intake and Output (Last 8hrs): Intake & Output 08/12/17 08/13/17 08/13/17 22:59 06:59 14:59 Intake Total 286.5 392.3 55.2 Output Total 235 255 65 Balance 51.5 137.3 -9.8 Weight 202 lb 6.15 oz Intake: IV 20 200 Intake, IV Amount 166.5 192.3 35.2 Left Hand 35.7 95.2 23.8 Right Distal Port 59.3 45.6 11.4 Right Femoral 12.0 1.5 Right Medial Port Femoral 59.5 50 Tube Feeding 100 20 Output: Urine 235 255 65 Urethral (Jaquez) 235 255 65 Stool 0 0 0 Other: # Bowel Movements 1 - Physical Exam Head: Positive for: Atraumatic, Normocephalic Pupils: Positive for: Sluggish Conjunctiva: Positive for: Normal Pharnyx: Positive for: Normal Respiratory/Chest: Positive for: Other (on vent) Cardiovascular: Positive for: Regular Rate and Rhythm, Normal S1, S2 Abdomen: Positive for: Distention, Normal Bowel Sounds Psychiatric: Positive for: Other (sedated) - Medications Active Medications: Active Medications Generic Name Dose Route Start Last Admin Trade Name Freq PRN Reason Stop Dose Admin Acetaminophen 650 mg 08/11/17 17:40 08/13/17 10:45 Tylenol 650mg/20.3ml Solution Ud PO 650 mg Q6 PRN Administration Temperature Aspirin 81 mg 08/07/17 10:00 08/13/17 10:22 Ecotrin PO 81 mg DAILY LUIS FERNANDO Administration Clopidogrel Bisulfate 75 mg 08/12/17 11:00 08/13/17 10:22 Plavix PO 75 mg DAILY LUIS FERNANDO Administration Famotidine 20 mg 08/09/17 10:00 08/13/17 10:22 Pepcid PO 20 mg DAILY LUIS FERNANDO Administration Ferric Sodium Gluconate Complex 125 mg 08/08/17 10:00 08/13/17 10:35 Ferrlecit IVPB 08/16/17 10:01 125 mg DAILY LUIS FERNANDO Administration Furosemide 60 mg 08/11/17 10:30 08/13/17 11:00 Lasix IVP 60 mg Q12 LUIS FERNANDO Administration Heparin Sodium/Sodium Chloride 25,000 units in 250 mls @ 11.376 mls/hr 15:00 08/13/17 03:00 Heparin 95152 Units/250ml 1/2 Normal Saline IV 12.53 units/kg/hr .[id number] PRN 11.879 mls/hr PROTOCOL Administration Protocol 12 UNITS/KG/HR Piperacillin Sod/Tazobactam Sod 2.25 gm in 50 mls @ 100 mls/hr 08/12/17 20:00 08/13/17 13:00 Zosyn 2.25 Gm Iv Premix IVPB 100 mls/hr Q8H LUIS FERNANDO Administration Propofol 1,000 mg in 100 mls @ 2.844 mls/hr 08/12/17 21:00 08/12/17 22:00 Diprivan IV 10.02 mcg/kg/min .Q24H PRN 5.7 mls/hr TITRATE PER MD ORDER Titration Protocol 5 MCG/KG/MIN Insulin Aspart 0 unit 08/11/17 00:00 08/13/17 13:05 Novolog SC 4 unit Q6H LUIS FERNANDO Administration Protocol Ipratropium [place] 0.5 mg 08/07/17 08:47 08/12/17 07:21 Atrovent IH 0.5 mg RQ6 PRN Administration Shortness of Breath Lactobacillus Acidophilus 1 cap 08/13/17 18:00 Bacid Acidophilus PO BID LUIS FERNANDO Lorazepam 1 mg 08/10/17 13:52 08/12/17 15:20 Ativan IVP 1 mg Q2H PRN Administration Agitation Metoprolol Succinate 50 mg 08/07/17 13:54 08/13/17 10:56 Toprol Xl PO 50 mg DAILY LUIS FERNANDO Administration Midazolam HCl 2 mg 08/12/17 14:26 Versed Inj IVP Q4H PRN Anxiety Nifedipine 30 mg 08/12/17 11:45 08/13/17 11:30 Procardia PO Not Given Q8H LUIS FERNANDO Rosuvastatin Calcium 10 mg 08/06/17 22:00 08/12/17 21:05 Crestor PO 10 mg HS LUIS FERNANDO Administration Senna/Docusate Sodium 1 tab 08/13/17 11:30 Senokot S 50 Mg-8.6 Mg PO BID LUIS FERNANDO - Patient Studies Lab Studies: Microbiology Studies 08/10/17 15:47 Urine Culture - Final Urine,Jaquez Gram Negative Sarmad Lab Studies 08/13/17 08/13/17 08/13/17 Range/Units 13:51 11:33 06:26 WBC (4.8-10.8) K/uL RBC (4.40-5.90) Mil/uL Hgb (12.0-18.0) g/dL Hct (35.0-51.0) % MCV (80.0-94.0) fL MCH (27.0-31.0) pg MCHC (33.0-37.0) g/dL RDW (11.5-14.5) % Plt Count (130-400) K/uL MPV (7.2-11.7) fL Neut % (Auto) (50.0-75.0) % Lymph % (Auto) (20.0-40.0) % Caroline % (Auto) (0.0-10.0) % Eos % (Auto) (0.0-4.0) % Baso % (Auto) (0.0-2.0) % Neut # (1.8-7.0) K/uL Lymph # (1.0-4.3) K/uL Caroline # (0.0-0.8) K/uL Eos # (0.0-0.7) K/uL Baso # (0.0-0.2) K/uL Neutrophils % (Manual) (50-75) % Band Neutrophils % (0-2) % Lymphocytes % (Manual) (20-40) % Monocytes % (Manual) (0-10) % Platelet Estimate (NORMAL) Large Platelets Polychromasia Hypochromasia (manual) Poikilocytosis (manual Anisocytosis (manual) Microcytosis (manual) Macrocytosis (manual) Tear Drop Cells Ovalocytes Yakov Cells APTT 60 H D (21-34) SECONDS Puncture Site Lra pCO2 36 (35-45) mm/Hg pO2 122 H (80-100) mm/Hg HCO3 23.3 (21-28) mmol/L ABG pH 7.40 (7.35-7.45) ABG Total CO2 23.4 (22-28) mmol/L ABG O2 Saturation 99.1 H (95-98) % ABG Base Excess -2.0 (-2.0-3.0) mmol/L ABG Hemoglobin 13.6 (11.7-17.4) g/dL ABG Carboxyhemoglobin 1.5 (0.5-1.5) % POC ABG HHb (Measured) 0.9 (0.0-5.0) % ABG Methemoglobin 1.0 (0.0-3.0) % Uriel Test Pos A-a O2 Difference 332.0 mm/Hg Respiratory Index 2.7 Hgb O2 Saturation 96.5 (95.0-98.0) % Vent Mode Mechanical Rate 18 FiO2 70.0 % Tidal Volume 450 PEEP 16 Sodium (132-148) mmol/L Potassium (3.6-5.2) mmol/L Chloride (98-107) mmol/L Carbon Dioxide (22-30) mmol/L Anion Gap (10-20) BUN (9-20) mg/dL Creatinine (0.8-1.5) MG/DL Est GFR ( Amer) Est GFR (Non-Af Amer) POC Glucose (mg/dL) 218 H (65-110) mg/dL Random Glucose (75-110) mg/dL Calcium (8.6-10.4) mg/dl Phosphorus (2.5-4.5) mg/dL Magnesium (1.6-2.3) mg/dL Total Bilirubin (0.2-1.3) mg/dL AST (17-59) U/L ALT (21-72) U/L Alkaline Phosphatase (38-126) U/L Total Protein (6.3-8.3) g/dL Albumin (3.5-5.0) g/dL Globulin (2.2-3.9) gm/dL Albumin/Globulin Ratio (1.0-2.1) Urine Color (YELLOW) Urine Clarity (Clear) Urine pH (5.0-8.0) Ur Specific [place] (1.003-1.030) Urine Protein (NEGATIVE) mg/dL Urine Glucose (UA) (Normal) mg/dL Urine Ketones (NEGATIVE) mg/dL Urine Blood (NEGATIVE) Urine Nitrate (NEGATIVE) Urine Bilirubin (NEGATIVE) Urine Urobilinogen (0.2-1.0) mg/dL Ur Leukocyte Esterase (Negative) Francoise/uL Urine WBC (Auto) (0-5) /hpf Urine RBC (Auto) (0-3) /hpf Ur Squamous Epith Cells (0-5) /hpf Urine Bacteria (<OCC) 08/13/17 08/13/17 08/13/17 Range/Units 06:26 06:25 05:24 WBC 13.9 H (4.8-10.8) K/uL RBC 3.84 L (4.40-5.90) Mil/uL Hgb 8.8 L (12.0-18.0) g/dL Hct 28.2 L (35.0-51.0) % MCV 73.5 L (80.0-94.0) fL MCH 22.9 L (27.0-31.0) pg MCHC 31.2 L (33.0-37.0) g/dL RDW 21.1 H (11.5-14.5) % Plt Count 291 (130-400) K/uL MPV 10.0 (7.2-11.7) fL Neut % (Auto) 83.5 H (50.0-75.0) % Lymph % (Auto) 8.9 L (20.0-40.0) % Caroline % (Auto) 6.0 (0.0-10.0) % Eos % (Auto) 1.2 (0.0-4.0) % Baso % (Auto) 0.4 (0.0-2.0) % Neut # 11.6 H (1.8-7.0) K/uL Lymph # 1.2 (1.0-4.3) K/uL Caroline # 0.8 (0.0-0.8) K/uL Eos # 0.2 (0.0-0.7) K/uL Baso # 0.1 (0.0-0.2) K/uL Neutrophils % (Manual) 86 H (50-75) % Band Neutrophils % 2 (0-2) % Lymphocytes % (Manual) 8 L (20-40) % Monocytes % (Manual) 4 (0-10) % Platelet Estimate Normal (NORMAL) Large Platelets Present Polychromasia Slight Hypochromasia (manual) Slight Poikilocytosis (manual Slight Anisocytosis (manual) Moderate Microcytosis (manual) Slight Macrocytosis (manual) Slight Tear Drop Cells Slight Ovalocytes Slight Yakov Cells Slight APTT (21-34) SECONDS Puncture Site pCO2 (35-45) mm/Hg pO2 (80-100) mm/Hg HCO3 (21-28) mmol/L ABG pH (7.35-7.45) ABG Total CO2 (22-28) mmol/L ABG O2 Saturation (95-98) % ABG Base Excess (-2.0-3.0) mmol/L ABG Hemoglobin (11.7-17.4) g/dL ABG Carboxyhemoglobin (0.5-1.5) % POC ABG HHb (Measured) (0.0-5.0) % ABG Methemoglobin (0.0-3.0) % Uriel Test A-a O2 Difference mm/Hg Respiratory Index Hgb O2 Saturation (95.0-98.0) % Vent Mode Mechanical Rate FiO2 % Tidal Volume PEEP Sodium 145 (132-148) mmol/L Potassium 3.5 L (3.6-5.2) mmol/L Chloride 105 (98-107) mmol/L Carbon Dioxide 24 (22-30) mmol/L Anion Gap 20 (10-20) BUN 72 H (9-20) mg/dL Creatinine 3.3 H (0.8-1.5) MG/DL Est GFR ( Amer) 22 Est GFR (Non-Af Amer) 18 POC Glucose (mg/dL) 192 H (65-110) mg/dL Random Glucose 159 H (75-110) mg/dL Calcium 8.2 L (8.6-10.4) mg/dl Phosphorus 3.9 (2.5-4.5) mg/dL Magnesium 2.2 (1.6-2.3) mg/dL Total Bilirubin 0.5 (0.2-1.3) mg/dL AST 47 (17-59) U/L ALT 80 H D (21-72) U/L Alkaline Phosphatase 102 (38-126) U/L Total Protein 6.0 L (6.3-8.3) g/dL Albumin 2.9 L (3.5-5.0) g/dL Globulin 3.2 (2.2-3.9) gm/dL Albumin/Globulin Ratio 0.9 L (1.0-2.1) Urine Color (YELLOW) Urine Clarity (Clear) Urine pH (5.0-8.0) Ur Specific [place] (1.003-1.030) Urine Protein (NEGATIVE) mg/dL Urine Glucose (UA) (Normal) mg/dL Urine Ketones (NEGATIVE) mg/dL Urine Blood (NEGATIVE) Urine Nitrate (NEGATIVE) Urine Bilirubin (NEGATIVE) Urine Urobilinogen (0.2-1.0) mg/dL Ur Leukocyte Esterase (Negative) Francoise/uL Urine WBC (Auto) (0-5) /hpf Urine RBC (Auto) (0-3) /hpf Ur Squamous Epith Cells (0-5) /hpf Urine Bacteria (<OCC) 08/13/17 08/13/17 08/12/17 Range/Units 04:59 00:04 18:48 WBC (4.8-10.8) K/uL RBC (4.40-5.90) Mil/uL Hgb (12.0-18.0) g/dL Hct (35.0-51.0) % MCV (80.0-94.0) fL MCH (27.0-31.0) pg MCHC (33.0-37.0) g/dL RDW (11.5-14.5) % Plt Count (130-400) K/uL MPV (7.2-11.7) fL Neut % (Auto) (50.0-75.0) % Lymph % (Auto) (20.0-40.0) % Caroline % (Auto) (0.0-10.0) % Eos % (Auto) (0.0-4.0) % Baso % (Auto) (0.0-2.0) % Neut # (1.8-7.0) K/uL Lymph # (1.0-4.3) K/uL Caroline # (0.0-0.8) K/uL Eos # (0.0-0.7) K/uL Baso # (0.0-0.2) K/uL Neutrophils % (Manual) (50-75) % Band Neutrophils % (0-2) % Lymphocytes % (Manual) (20-40) % Monocytes % (Manual) (0-10) % Platelet Estimate (NORMAL) Large Platelets Polychromasia Hypochromasia (manual) Poikilocytosis (manual Anisocytosis (manual) Microcytosis (manual) Macrocytosis (manual) Tear Drop Cells Ovalocytes [place] Cells APTT (21-34) SECONDS Puncture Site R rad pCO2 40 (35-45) mm/Hg pO2 75 L (80-100) mm/Hg HCO3 24.9 (21-28) mmol/L ABG pH 7.40 (7.35-7.45) ABG Total CO2 26.0 (22-28) mmol/L ABG O2 Saturation 97.6 (95-98) % ABG Base Excess 0 (-2.0-3.0) mmol/L ABG Hemoglobin 9.1 L (11.7-17.4) g/dL ABG Carboxyhemoglobin 2.2 H (0.5-1.5) % POC ABG HHb (Measured) 2.3 (0.0-5.0) % ABG Methemoglobin 0.7 (0.0-3.0) % Uriel Test Pos A-a O2 Difference 445.0 mm/Hg Respiratory Index 5.9 Hgb O2 Saturation 94.8 L (95.0-98.0) % Vent Mode Prvc Mechanical Rate 18 FiO2 80.0 % Tidal Volume 450 PEEP 16 Sodium (132-148) mmol/L Potassium (3.6-5.2) mmol/L Chloride (98-107) mmol/L Carbon Dioxide (22-30) mmol/L Anion Gap (10-20) BUN (9-20) mg/dL Creatinine (0.8-1.5) MG/DL Est GFR ( Amer) Est GFR (Non-Af Amer) POC Glucose (mg/dL) 206 H (65-110) mg/dL Random Glucose (75-110) mg/dL Calcium (8.6-10.4) mg/dl Phosphorus (2.5-4.5) mg/dL Magnesium (1.6-2.3) mg/dL Total Bilirubin (0.2-1.3) mg/dL AST (17-59) U/L ALT (21-72) U/L Alkaline Phosphatase (38-126) U/L Total Protein (6.3-8.3) g/dL Albumin (3.5-5.0) g/dL Globulin (2.2-3.9) gm/dL Albumin/Globulin Ratio (1.0-2.1) Urine Color Yellow (YELLOW) Urine Clarity Hazy (Clear) Urine pH 5.0 (5.0-8.0) Ur Specific [place] 1.014 (1.003-1.030) Urine Protein Negative (NEGATIVE) mg/dL Urine Glucose (UA) Normal (Normal) mg/dL Urine Ketones Negative (NEGATIVE) mg/dL Urine Blood 3+ H (NEGATIVE) Urine Nitrate Negative (NEGATIVE) Urine Bilirubin Negative (NEGATIVE) Urine Urobilinogen Normal (0.2-1.0) mg/dL Ur Leukocyte Esterase 3+ H (Negative) Francoise/uL Urine WBC (Auto) 44 H (0-5) /hpf Urine RBC (Auto) 87 H (0-3) /hpf Ur Squamous Epith Cells < 1 (0-5) /hpf Urine Bacteria Occ H (<OCC) 08/12/17 08/12/17 Range/Units 17:47 13:49 WBC (4.8-10.8) K/uL RBC (4.40-5.90) Mil/uL Hgb (12.0-18.0) g/dL Hct (35.0-51.0) % MCV (80.0-94.0) fL MCH (27.0-31.0) pg MCHC (33.0-37.0) g/dL RDW (11.5-14.5) % Plt Count (130-400) K/uL MPV (7.2-11.7) fL Neut % (Auto) (50.0-75.0) % Lymph % (Auto) (20.0-40.0) % Caroline % (Auto) (0.0-10.0) % Eos % (Auto) (0.0-4.0) % Baso % (Auto) (0.0-2.0) % Neut # (1.8-7.0) K/uL Lymph # (1.0-4.3) K/uL Caroline # (0.0-0.8) K/uL Eos # (0.0-0.7) K/uL Baso # (0.0-0.2) K/uL Neutrophils % (Manual) (50-75) % Band Neutrophils % (0-2) % Lymphocytes % (Manual) (20-40) % Monocytes % (Manual) (0-10) % Platelet Estimate (NORMAL) Large Platelets Polychromasia Hypochromasia (manual) Poikilocytosis (manual Anisocytosis (manual) Microcytosis (manual) Macrocytosis (manual) Tear Drop Cells Ovalocytes [place] Cells APTT (21-34) SECONDS Puncture Site pCO2 (35-45) mm/Hg pO2 (80-100) mm/Hg HCO3 (21-28) mmol/L ABG pH (7.35-7.45) ABG Total CO2 (22-28) mmol/L ABG O2 Saturation (95-98) % ABG Base Excess (-2.0-3.0) mmol/L ABG Hemoglobin (11.7-17.4) g/dL ABG Carboxyhemoglobin (0.5-1.5) % POC ABG HHb (Measured) (0.0-5.0) % ABG Methemoglobin (0.0-3.0) % Uriel Test A-a O2 Difference mm/Hg Respiratory Index Hgb O2 Saturation (95.0-98.0) % Vent Mode Mechanical Rate FiO2 % Tidal Volume PEEP Sodium (132-148) mmol/L Potassium (3.6-5.2) mmol/L Chloride (98-107) mmol/L Carbon Dioxide (22-30) mmol/L Anion Gap (10-20) BUN (9-20) mg/dL Creatinine (0.8-1.5) MG/DL Est GFR ( Amer) Est GFR (Non-Af Amer) POC Glucose (mg/dL) 259 H 234 H (65-110) mg/dL Random Glucose (75-110) mg/dL Calcium (8.6-10.4) mg/dl Phosphorus (2.5-4.5) mg/dL Magnesium (1.6-2.3) mg/dL Total Bilirubin (0.2-1.3) mg/dL AST (17-59) U/L ALT (21-72) U/L Alkaline Phosphatase (38-126) U/L Total Protein (6.3-8.3) g/dL Albumin (3.5-5.0) g/dL Globulin (2.2-3.9) gm/dL Albumin/Globulin Ratio (1.0-2.1) Urine Color (YELLOW) Urine Clarity (Clear) Urine pH (5.0-8.0) Ur Specific [place] (1.003-1.030) Urine Protein (NEGATIVE) mg/dL Urine Glucose (UA) (Normal) mg/dL Urine Ketones (NEGATIVE) mg/dL Urine Blood (NEGATIVE) Urine Nitrate (NEGATIVE) Urine Bilirubin (NEGATIVE) Urine Urobilinogen (0.2-1.0) mg/dL Ur Leukocyte Esterase (Negative) Francoise/uL Urine WBC (Auto) (0-5) /hpf Urine RBC (Auto) (0-3) /hpf Ur Squamous Epith Cells (0-5) /hpf Urine Bacteria (<OCC) Laboratory Results - last 24 hr 08/12/17 08/12/17 08/12/17 13:49 17:47 18:48 WBC RBC Hgb Hct MCV MCH MCHC RDW Plt Count MPV Neut % (Auto) Lymph % (Auto) [place] % (Auto) Eos % (Auto) Baso % (Auto) Neut # Lymph # [place] # Eos # Baso # Neutrophils % (Manual) Band Neutrophils % Lymphocytes % (Manual) Monocytes % (Manual) Platelet Estimate Large Platelets Polychromasia Hypochromasia (manual) Poikilocytosis (manual Anisocytosis (manual) Microcytosis (manual) Macrocytosis (manual) Tear Drop Cells Ovalocytes [place] Cells APTT Puncture Site pCO2 pO2 HCO3 ABG pH ABG Total CO2 ABG O2 Saturation ABG Base Excess ABG Hemoglobin ABG Carboxyhemoglobin POC ABG HHb (Measured) ABG Methemoglobin Uriel Test A-a O2 Difference Respiratory Index Hgb O2 Saturation Vent Mode Mechanical Rate FiO2 Tidal Volume PEEP Sodium Potassium Chloride Carbon Dioxide Anion Gap BUN Creatinine Est GFR ( Amer) Est GFR (Non-Af Amer) POC Glucose (mg/dL) 234 H 259 H Random Glucose Calcium Phosphorus Magnesium Total Bilirubin AST ALT Alkaline Phosphatase Total Protein Albumin Globulin Albumin/Globulin Ratio Urine Color Yellow Urine Clarity Hazy Urine pH 5.0 Ur Specific [place] 1.014 Urine Protein Negative Urine Glucose (UA) Normal Urine Ketones Negative Urine Blood 3+ H Urine Nitrate Negative Urine Bilirubin Negative Urine Urobilinogen Normal Ur Leukocyte Esterase 3+ H Urine WBC (Auto) 44 H Urine RBC (Auto) 87 H Ur Squamous Epith Cells < 1 Urine Bacteria Occ H 08/13/17 08/13/17 08/13/17 00:04 04:59 05:24 WBC RBC Hgb Hct MCV MCH MCHC RDW Plt Count MPV Neut % (Auto) Lymph % (Auto) [place] % (Auto) Eos % (Auto) Baso % (Auto) Neut # Lymph # [place] # Eos # Baso # Neutrophils % (Manual) Band Neutrophils % Lymphocytes % (Manual) Monocytes % (Manual) Platelet Estimate Large Platelets Polychromasia Hypochromasia (manual) Poikilocytosis (manual Anisocytosis (manual) Microcytosis (manual) Macrocytosis (manual) Tear Drop Cells Ovalocytes [place] Cells APTT Puncture Site R rad pCO2 40 pO2 75 L HCO3 24.9 ABG pH 7.40 ABG Total CO2 26.0 ABG O2 Saturation 97.6 ABG Base Excess 0 ABG Hemoglobin 9.1 L ABG Carboxyhemoglobin 2.2 H POC ABG HHb (Measured) 2.3 ABG Methemoglobin 0.7 Uriel Test Pos A-a O2 Difference 445.0 Respiratory Index 5.9 Hgb O2 Saturation 94.8 L Vent Mode Prvc Mechanical Rate 18 FiO2 80.0 Tidal Volume 450 PEEP 16 Sodium Potassium Chloride Carbon Dioxide Anion Gap BUN Creatinine Est GFR ( Amer) Est GFR (Non-Af Amer) POC Glucose (mg/dL) 206 H 192 H Random Glucose Calcium Phosphorus Magnesium Total Bilirubin AST ALT Alkaline Phosphatase Total Protein Albumin Globulin Albumin/Globulin Ratio Urine Color Urine Clarity Urine pH Ur Specific [place] Urine Protein Urine Glucose (UA) Urine Ketones Urine Blood Urine Nitrate Urine Bilirubin Urine Urobilinogen Ur Leukocyte Esterase Urine WBC (Auto) Urine RBC (Auto) Ur Squamous Epith Cells Urine Bacteria 08/13/17 08/13/17 08/13/17 06:25 06:26 06:26 WBC 13.9 H RBC 3.84 L Hgb 8.8 L Hct 28.2 L MCV 73.5 L MCH 22.9 L MCHC 31.2 L RDW 21.1 H Plt Count 291 MPV 10.0 Neut % (Auto) 83.5 H Lymph % (Auto) 8.9 L [place] % (Auto) 6.0 Eos % (Auto) 1.2 Baso % (Auto) 0.4 Neut # 11.6 H Lymph # 1.2 Caroline # 0.8 Eos # 0.2 Baso # 0.1 Neutrophils % (Manual) 86 H Band Neutrophils % 2 Lymphocytes % (Manual) 8 L Monocytes % (Manual) 4 Platelet Estimate Normal Large Platelets Present Polychromasia Slight Hypochromasia (manual) Slight Poikilocytosis (manual Slight Anisocytosis (manual) Moderate Microcytosis (manual) Slight Macrocytosis (manual) Slight Tear Drop Cells Slight Ovalocytes Slight Yakov Cells Slight APTT 60 H D Puncture Site pCO2 pO2 HCO3 ABG pH ABG Total CO2 ABG O2 Saturation ABG Base Excess ABG Hemoglobin ABG Carboxyhemoglobin POC ABG HHb (Measured) ABG Methemoglobin Uriel Test A-a O2 Difference Respiratory Index Hgb O2 Saturation Vent Mode Mechanical Rate FiO2 Tidal Volume PEEP Sodium 145 Potassium 3.5 L Chloride 105 Carbon Dioxide 24 Anion Gap 20 BUN 72 H Creatinine 3.3 H Est GFR ( Amer) 22 Est GFR (Non-Af Amer) 18 POC Glucose (mg/dL) Random Glucose 159 H Calcium 8.2 L Phosphorus 3.9 Magnesium 2.2 Total Bilirubin 0.5 AST 47 ALT 80 H D Alkaline Phosphatase 102 Total Protein 6.0 L Albumin 2.9 L Globulin 3.2 Albumin/Globulin Ratio 0.9 L Urine Color Urine Clarity Urine pH Ur Specific [place] Urine Protein Urine Glucose (UA) Urine Ketones Urine Blood Urine Nitrate Urine Bilirubin Urine Urobilinogen Ur Leukocyte Esterase Urine WBC (Auto) Urine RBC (Auto) Ur Squamous Epith Cells Urine Bacteria 08/13/17 08/13/17 11:33 13:51 WBC RBC Hgb Hct MCV MCH MCHC RDW Plt Count MPV Neut % (Auto) Lymph % (Auto) [place] % (Auto) Eos % (Auto) Baso % (Auto) Neut # Lymph # [place] # Eos # Baso # Neutrophils % (Manual) Band Neutrophils % Lymphocytes % (Manual) Monocytes % (Manual) Platelet Estimate Large Platelets Polychromasia Hypochromasia (manual) Poikilocytosis (manual Anisocytosis (manual) Microcytosis (manual) Macrocytosis (manual) Tear Drop Cells Ovalocytes [place] Cells APTT Puncture Site Lra pCO2 36 pO2 122 H HCO3 23.3 ABG pH 7.40 ABG Total CO2 23.4 ABG O2 Saturation 99.1 H ABG Base Excess -2.0 ABG Hemoglobin 13.6 ABG Carboxyhemoglobin 1.5 POC ABG HHb (Measured) 0.9 ABG Methemoglobin 1.0 Uriel Test Pos A-a O2 Difference 332.0 Respiratory Index 2.7 Hgb O2 Saturation 96.5 Vent Mode Mechanical Rate 18 FiO2 70.0 Tidal Volume 450 PEEP 16 Sodium Potassium Chloride Carbon Dioxide Anion Gap BUN Creatinine Est GFR ( Amer) Est GFR (Non-Af Amer) POC Glucose (mg/dL) 218 H Random Glucose Calcium Phosphorus Magnesium Total Bilirubin AST ALT Alkaline Phosphatase Total Protein Albumin Globulin Albumin/Globulin Ratio Urine Color Urine Clarity Urine pH Ur Specific [place] Urine Protein Urine Glucose (UA) Urine Ketones Urine Blood Urine Nitrate Urine Bilirubin Urine Urobilinogen Ur Leukocyte Esterase Urine WBC (Auto) Urine RBC (Auto) Ur Squamous Epith Cells Urine Bacteria Fingerstick Blood Sugar Results: 105 Review of Systems - Review of Systems Systems not reviewed;Unavailable: Intubated Critical Care Progress Note - Nutrition Nutrition: Nutrition Category Date Time Status Heart Healthy Diet [DIET] Diets 08/09/17 Lunch Active Assessment/Plan (1) ARDS (adult respiratory distress syndrome) Assessment and plan: 77 yo M admitted to ICU from floors, patient was to get CT scan and had respiratory distress, a code blue was called and patient was transferred to ICU and intubated. Neuro: Sedated with propofol drip. Pulm: acute respiratory failure in severe ARDS. Obtaining CT of chest/abd/ pelvis. CV: NSTEMI on heparin drip, metoprolol po qd, nifedipine po q8h. Hem: aspirin, plavix, heparin drip, holding eliquis. Renal: ALIREZA, Lasix 60mg IV q12h. metabolic alkalosis with diuresis, giving Diamox. Endo: DM type 2, on insulin sliding scale for coverage GI: no recent BM's, r/o obstruction on CT abd. Started Senna/Colace and enema. ID: severe sepsis from pneumonia, continue Zosyn. DVT proph - heparin gtt GI proph - pepcid jaquez for strict I/O's during acute illness Code status - full code Critical Care Time spent 35 minutes Multi-disciplinary rounds were performed with house staff, nursing, speech therapy, respiratory therapy, pharmacy and nutrition with integrated input from the primary team/attending and other consulting services. The documented time is cumulative and includes review of patient data/exams/labs/chart review and examination of the patient on rounds and throughout the day; time is exclusive of any procedures or teaching time. Current Visit: Yes Status: Acute
[2017-08-13] MEDS ORDERED: Iohexol 240 (50 ml) PO ONE (14:15)
--- NOTE | 2017-08-13 15:31 | CARD ---
APPROVED REPORT EXAM: Two-dimensional and M-mode echocardiogram with Doppler and color Doppler. Other Information Quality : GoodRhythm : NSR INDICATION ICD: 427.5 Cardiac Arrest Congestive Heart Failure FOLLOW UP S/P CARDIAC ARRERST 2D DIMENSIONS IVSd1.0 (0.7-1.1cm)LVDd6.6 (3.9-5.9cm) PWd0.9 (0.7-1.1cm)LVDs5.9 (2.5-4.0cm) FS (%) 11.4 %LVEF (%)24.0 (>50%) Mitral Valve E/A ratio0.0 TDI E/Lateral E'0.0E/Medial E'0.0 Tricuspid Valve TR Peak [id number] Peak [id number] LEFT VENTRICLE The Left Ventricle is moderately dilated. There is normal left ventricular wall thickness. Left ventricle systolic function is severely compromised. The Ejection Fraction is 20-25%. There is global hypokinesis of the left ventricle. The left ventricular diastolic function is normal. RIGHT VENTRICLE The right ventricle is normal size. There is normal right ventricular wall thickness. Systolic function is moderately to severely reduced. ATRIA The left atrium size is normal. The right atrium size is normal. The interatrial septum is intact with no evidence for an atrial septal defect. AORTIC VALVE The aortic valve is normal in structure. No aortic regurgitation is present. There is no aortic valvular stenosis. There is no aortic valvular vegetation. MITRAL VALVE The mitral valve is normal in structure. There is no evidence of mitral valve prolapse. There is no mitral valve stenosis. Mitral regurgitation is mild. TRICUSPID VALVE The tricuspid valve is normal in structure. There is mild tricuspid regurgitation. Right ventricular systolic pressure is estimated at 30-40 mmHg. There is mild pulmonary hypertension. PULMONIC VALVE The pulmonic valve is not well visualized. There is no pulmonic valvular regurgitation. There is no pulmonic valvular stenosis. GREAT VESSELS The aortic root is normal in size. PERICARDIAL EFFUSION There is a small loculated posterior pericardial effusion. <Conclusion> Left ventricle systolic function is severely depressed. The Ejection Fraction is 20-25%. No aortic regurgitation is present. Mitral regurgitation is mild. There is mild tricuspid regurgitation. There is mild pulmonary hypertension. There is no pulmonic valvular regurgitation.
[2017-08-13 16:35] LABS: ARTERIAL BLOOD GAS MODE CPAP; ARTERIAL BLOOD HGB O2 SAT 91.9 % (95.0-98.0); CARBOXYHEMOGLOBIN 1.9 % (0.5-1.5); DRAW SITE RRA; HHB 5.8 % (0.0-5.0); METHEMOGLOBIN 0.4 % (0.0-3.0)
--- NOTE | 2017-08-13 16:56 | CT ---
PROCEDURE: CT Chest, Abdomen and Pelvis without intravenous contrast HISTORY: r/o obstruction, assess for effusions/pna COMPARISON: Comparison is made to the previous CT of the abdomen and pelvis dated 06/01/2013. TECHNIQUE: Radiation dose: Total exam DLP = 1460.6 mGy-cm. This CT exam was performed using one or more of the following dose reduction techniques: Automated exposure control, adjustment of the mA and/or kV according to patient size, and/or use of iterative reconstruction technique. FINDINGS: CT CHEST WITHOUT CONTRAST: LUNGS: There is partial consolidation of the right lower lobe and almost complete collapse of the left lower lobe likely due to compression by pleural effusion and atelectasis. The ET tube is seen at appropriate position. There are patchy ground-glass opacities at the upper lobes of uncertain etiology may related to pulmonary vascular congestion. MEDIASTINUM: Unremarkable. Normal caliber aorta and pulmonary arterial trunk. The heart is moderately enlarged. There is a small pericardial effusion. Single wire pacemaker or AICD seen extending to the right ventricle. . LYMPH NODES: Mildly enlarged mediastinal lymph nodes PLEURA: Moderate to large right and moderate left pleural effusion. BONES: Unremarkable. OTHER FINDINGS: None. CT ABDOMEN AND PELVIS: LIVER: Mild hepatomegaly noted. No evidence of mass lesion or acute pathology in this noncontrast study. GALLBLADDER AND BILE DUCTS: Gallstones are seen without evidence of acute cholecystitis. Mild gallbladder wall thickening is noted. PANCREAS: No evidence of pancreatitis. The main pancreatic duct is not dilated. SPLEEN: Unremarkable. ADRENALS: Unremarkable. No mass. KIDNEYS AND URETERS: There are multiple low-attenuation cyst exophytic from the cortex of both kidneys. There is 8 millimeter nonobstructing calculus at the mid to lower pole left kidney. There is high attenuation exophytic lesion at the upper pole of the left kidney may represent hemorrhagic cyst measures 1.7 centimeter. No evidence of hydronephrosis or hydroureter. VASCULATURE: Unremarkable. No aortic aneurysm. BOWEL: Scattered colonic diverticulosis seen. No evidence of bowel obstruction. APPENDIX: No evidence of appendicitis. PERITONEUM: Unremarkable. No free fluid. No free air. LYMPH NODES: Unremarkable. No enlarged lymph nodes. BLADDER: The bladder is collapsed around a Sanchez catheter. REPRODUCTIVE: Moderately to markedly enlarged prostate. BONES: No acute fracture. OTHER FINDINGS: None. IMPRESSION: Moderate to large bilateral pleural effusions larger on the right associated with atelectasis at the lower lobes. Nonspecific ground-glass opacities in the upper lobe new may be due to pulmonary vascular congestion. Moderate cardiomegaly. No evidence of bowel obstruction. Moderately to markedly enlarged prostate. Multiple low-attenuation cystic lesion exophytic from the kidneys bilaterally. High attenuation lesion exophytic from the upper pole of the left kidney may represent hemorrhagic cyst. The possibility of tumor is not totally excluded. Nonobstructing calculus at the mid to lower pole left kidney. Gallstone without evidence of cholecystitis. Scattered diverticulosis without evidence of diverticulitis. Appropriate position of the support devices.
--- NOTE | 2017-08-13 17:02 | CP.PCM.CON ---
History of Present Illness - History of Present Illness History of Present Illness: dictated Past Patient History - Infectious Disease Hx of Infectious Diseases: None - Past Medical History & Family History Past Medical History?: Yes - Past Social History Smoking Status: Never Smoked Alcohol: None Drugs: Denies Home Situation {Lives}: With Family - CARDIAC Hx Congestive Heart Failure: Yes Hx Hypercholesterolemia: Yes Hx Hypertension: Yes - PULMONARY Hx Asthma: Yes - RENAL Hx Chronic Kidney Disease: Yes (REANAL INSUFFICIENCY) Hx Kidney Stones: Yes - ENDOCRINE/METABOLIC Hx Diabetes Mellitus Type 2: Yes - MUSCULOSKELETAL/RHEUMATOLOGICAL Hx Arthritis: Yes - GENITOURINARY/GYNECOLOGICAL Hx Genitourinary Disorders: Yes Hx Prostate Problems: Yes (ELEVATED PSA) - PSYCHIATRIC Hx Anxiety: Yes Hx Depression: Yes Hx Substance Use: No - SURGICAL HISTORY Hx Surgeries: Yes Other/Comment: pacemaker on - ANESTHESIA Hx Anesthesia: Yes Hx Anesthesia Reactions: No Hx Malignant Hyperthermia: No Meds Allergies/Adverse Reactions: Allergies Allergy/AdvReac Type Severity Reaction Status Date / Time No Known Allergies Allergy Verified 08/06/17 13:20 - Medications Medications: Current Medications Acetaminophen (Tylenol 650mg/20.3ml Solution Ud) 650 mg PO Q6 PRN PRN Reason: Temperature Last Admin: 08/13/17 10:45 Dose: 650 mg Aspirin (Ecotrin) 81 mg PO DAILY [facility] Last Admin: 08/13/17 10:22 Dose: 81 mg Clopidogrel Bisulfate (Plavix) 75 mg PO DAILY [facility] Last Admin: 08/13/17 10:22 Dose: 75 mg Famotidine (Pepcid) 20 mg PO DAILY [facility] Last Admin: 08/13/17 10:22 Dose: 20 mg Ferric Sodium Gluconate Complex (Ferrlecit) 125 mg IVPB DAILY [facility] Stop: 08/16/17 10:01 Last Admin: 08/13/17 10:35 Dose: 125 mg Furosemide (Lasix) 60 mg IVP Q12 [facility] Last Admin: 08/13/17 11:00 Dose: 60 mg Heparin Sodium/Sodium Chloride (Heparin 61003 Units/250ml 1/2 Normal Saline) 25 ,000 units in 250 mls @ 11.376 mls/hr IV .[id number] PRN; Protocol; 12 UNITS/KG/HR PRN Reason: PROTOCOL Last Admin: 08/13/17 03:00 Dose: 12.53 units/kg/hr, 11.879 mls/hr Piperacillin Sod/Tazobactam Sod (Zosyn 2.25 Gm Iv Premix) 2.25 gm in 50 mls @ 100 mls/hr IVPB Q8H [facility] Last Admin: 08/13/17 13:00 Dose: 100 mls/hr Propofol (Diprivan) 1,000 mg in 100 mls @ 2.844 mls/hr IV .Q24H PRN; Protocol; 5 MCG/KG/MIN PRN Reason: TITRATE PER MD ORDER Last Titration: 08/13/17 11:00 Dose: Infused Insulin Aspart (Novolog) 0 unit SC Q6H [facility] PRN Reason: Protocol Last Admin: 08/13/17 13:05 Dose: 4 unit Ipratropium [place] (Atrovent) 0.5 mg IH RQ6 PRN PRN Reason: Shortness of Breath Last Admin: 08/12/17 07:21 Dose: 0.5 mg Lactobacillus Acidophilus (Bacid Acidophilus) 1 cap PO BID [facility] Lorazepam (Ativan) 1 mg IVP Q2H PRN PRN Reason: Agitation Last Admin: 08/12/17 15:20 Dose: 1 mg Metoprolol Succinate (Toprol Xl) 50 mg PO DAILY [facility] Last Admin: 08/13/17 10:56 Dose: 50 mg Midazolam HCl (Versed Inj) 2 mg IVP Q4H PRN PRN Reason: Anxiety Nifedipine (Procardia) 30 mg PO Q8H [facility] Last Admin: 08/13/17 11:30 Dose: Not Given Rosuvastatin Calcium (Crestor) 10 mg PO HS [facility] Last Admin: 08/12/17 21:05 Dose: 10 mg Senna/Docusate Sodium (Senokot S 50 Mg-8.6 Mg) 1 tab PO BID [facility] Last Admin: 08/13/17 13:00 Dose: 1 tab Results - Vital Signs Recent Vital Signs: Last Vital Signs Temp 100 F H 08/13/17 11:45 Pulse 73 08/13/17 15:00 Resp 27 H 08/13/17 15:00 BP 88/37 L 08/13/17 14:33 Pulse Ox 97 08/13/17 15:00 - Labs Result Diagrams: 08/13/17 06:26 08/13/17 06:25 Labs: Laboratory Results - last 24 hr 08/12/17 08/12/1708/13/17 17:47 18:48 00:04 WBC RBC Hgb Hct MCV MCH MCHC RDW Plt Count MPV Neut % (Auto) Lymph % (Auto) Rock % (Auto) Eos % (Auto) Baso % (Auto) Neut # Lymph # Rock # Eos # Baso # Neutrophils % (Manual) Band Neutrophils % Lymphocytes % (Manual) Monocytes % (Manual) Platelet Estimate Large Platelets Polychromasia Hypochromasia (manual) Poikilocytosis (manual Anisocytosis (manual) Microcytosis (manual) Macrocytosis (manual) Tear Drop Cells Ovalocytes Yakov Cells APTT Puncture Site pCO2 pO2 HCO3 ABG pH ABG Total CO2 ABG O2 Saturation ABG Base Excess ABG Hemoglobin ABG Carboxyhemoglobin POC ABG HHb (Measured) ABG Methemoglobin Uriel Test A-a O2 Difference Respiratory Index Hgb O2 Saturation Vent Mode Mechanical Rate FiO2 Tidal Volume PEEP Pressure Support CPAP Sodium Potassium Chloride Carbon Dioxide Anion Gap BUN Creatinine Est GFR ( Amer) Est GFR (Non-Af Amer) POC Glucose (mg/dL) 259 H 206 H Random Glucose Calcium Phosphorus Magnesium Total Bilirubin AST ALT Alkaline Phosphatase Total Protein Albumin Globulin Albumin/Globulin Ratio Procalcitonin Urine Color Yellow Urine Clarity Hazy Urine pH 5.0 Ur Specific [place] 1.014 Urine Protein Negative Urine Glucose (UA) Normal Urine Ketones Negative Urine Blood 3+ H Urine Nitrate Negative Urine Bilirubin Negative Urine Urobilinogen Normal Ur Leukocyte Esterase 3+ H Urine WBC (Auto) 44 H Urine RBC (Auto) 87 H Ur Squamous Epith Cells < 1 Urine Bacteria Occ H 08/13/17 08/13/17 08/13/17 04:59 05:24 06:25 WBC RBC Hgb Hct MCV MCH MCHC RDW Plt Count MPV Neut % (Auto) Lymph % (Auto) Rock % (Auto) Eos % (Auto) Baso % (Auto) Neut # Lymph # Rock # Eos # Baso # Neutrophils % (Manual) Band Neutrophils % Lymphocytes % (Manual) Monocytes % (Manual) Platelet Estimate Large Platelets Polychromasia Hypochromasia (manual) Poikilocytosis (manual Anisocytosis (manual) Microcytosis (manual) Macrocytosis (manual) Tear Drop Cells Ovalocytes Yakov Cells APTT Puncture Site R rad pCO2 40 pO2 75 L HCO3 24.9 ABG pH 7.40 ABG Total CO2 26.0 ABG O2 Saturation 97.6 ABG Base Excess 0 ABG Hemoglobin 9.1 L ABG Carboxyhemoglobin 2.2 H POC ABG HHb (Measured) 2.3 ABG Methemoglobin 0.7 Uriel Test Pos A-a O2 Difference 445.0 Respiratory Index 5.9 Hgb O2 Saturation 94.8 L Vent Mode Prvc Mechanical Rate 18 FiO2 80.0 Tidal Volume 450 PEEP 16 Pressure Support CPAP Sodium 145 Potassium 3.5 L Chloride 105 Carbon Dioxide 24 Anion Gap 20 BUN 72 H Creatinine 3.3 H Est GFR ( Amer) 22 Est GFR (Non-Af Amer) 18 POC Glucose (mg/dL) 192 H Random Glucose 159 H Calcium 8.2 L Phosphorus 3.9 Magnesium 2.2 Total Bilirubin 0.5 AST 47 ALT 80 H D Alkaline Phosphatase 102 Total Protein 6.0 L Albumin 2.9 L Globulin 3.2 Albumin/Globulin Ratio 0.9 L Procalcitonin Urine Color Urine Clarity Urine pH Ur Specific [place] Urine Protein Urine Glucose (UA) Urine Ketones Urine Blood Urine Nitrate Urine Bilirubin Urine Urobilinogen Ur Leukocyte Esterase Urine WBC (Auto) Urine RBC (Auto) Ur Squamous Epith Cells Urine Bacteria 08/13/17 08/13/17 08/13/17 06:26 06:26 11:33 WBC 13.9 H RBC 3.84 L Hgb 8.8 L Hct 28.2 L MCV 73.5 L MCH 22.9 L MCHC 31.2 L RDW 21.1 H Plt Count 291 MPV 10.0 Neut % (Auto) 83.5 H Lymph % (Auto) 8.9 L Rock % (Auto) 6.0 Eos % (Auto) 1.2 Baso % (Auto) 0.4 Neut # 11.6 H Lymph # 1.2 Rock # 0.8 Eos # 0.2 Baso # 0.1 Neutrophils % (Manual) 86 H Band Neutrophils % 2 Lymphocytes % (Manual) 8 L Monocytes % (Manual) 4 Platelet Estimate Normal Large Platelets Present Polychromasia Slight Hypochromasia (manual) Slight Poikilocytosis (manual Slight Anisocytosis (manual) Moderate Microcytosis (manual) Slight Macrocytosis (manual) Slight Tear Drop Cells Slight Ovalocytes Slight [place] Cells Slight APTT 60 H D Puncture Site pCO2 pO2 HCO3 ABG pH ABG Total CO2 ABG O2 Saturation ABG Base Excess ABG Hemoglobin ABG Carboxyhemoglobin POC ABG HHb (Measured) ABG Methemoglobin Uriel Test A-a O2 Difference Respiratory Index Hgb O2 Saturation Vent Mode Mechanical Rate FiO2 Tidal Volume PEEP Pressure Support CPAP Sodium Potassium Chloride Carbon Dioxide Anion Gap BUN Creatinine Est GFR ( Amer) Est GFR (Non-Af Amer) POC Glucose (mg/dL) 218 H Random Glucose Calcium Phosphorus Magnesium Total Bilirubin AST ALT Alkaline Phosphatase Total Protein Albumin Globulin Albumin/Globulin Ratio Procalcitonin Urine Color Urine Clarity Urine pH Ur Specific [place] Urine Protein Urine Glucose (UA) Urine Ketones Urine Blood Urine Nitrate Urine Bilirubin Urine Urobilinogen Ur Leukocyte Esterase Urine WBC (Auto) Urine RBC (Auto) Ur Squamous Epith Cells Urine Bacteria 08/13/17 08/13/17 08/13/17 13:51 13:51 16:30 WBC RBC Hgb Hct MCV MCH MCHC RDW Plt Count MPV Neut % (Auto) Lymph % (Auto) Rock % (Auto) Eos % (Auto) Baso % (Auto) Neut # Lymph # Rock # Eos # Baso # Neutrophils % (Manual) Band Neutrophils % Lymphocytes % (Manual) Monocytes % (Manual) Platelet Estimate Large Platelets Polychromasia Hypochromasia (manual) Poikilocytosis (manual Anisocytosis (manual) Microcytosis (manual) Macrocytosis (manual) Tear Drop Cells Ovalocytes Yakov Cells APTT Puncture Site Lra Rra pCO2 36 37 pO2 122 H 60 L HCO3 23.3 23.1 ABG pH 7.40 7.39 ABG Total CO2 23.4 23.5 ABG O2 Saturation 99.1 H 94.1 L ABG Base Excess -2.0 -2.3 L ABG Hemoglobin 13.6 8.4 L ABG Carboxyhemoglobin 1.5 1.9 H POC ABG HHb (Measured) 0.9 5.8 H ABG Methemoglobin 1.0 0.4 Uriel Test Pos Na A-a O2 Difference 332.0 179.0 Respiratory Index 2.7 3.0 Hgb O2 Saturation 96.5 91.9 L Vent Mode Cpap Mechanical Rate 18 FiO2 70.0 40.0 Tidal Volume 450 PEEP 16 Pressure Support 18 CPAP 5 Sodium Potassium Chloride Carbon Dioxide Anion Gap BUN Creatinine Est GFR ( Amer) Est GFR (Non-Af Amer) POC Glucose (mg/dL) Random Glucose Calcium Phosphorus Magnesium Total Bilirubin AST ALT Alkaline Phosphatase Total Protein Albumin Globulin Albumin/Globulin Ratio Procalcitonin 6.29 H Urine Color Urine Clarity Urine pH Ur Specific [place] Urine Protein Urine Glucose (UA) Urine Ketones Urine Blood Urine Nitrate Urine Bilirubin Urine Urobilinogen Ur Leukocyte Esterase Urine WBC (Auto) Urine RBC (Auto) Ur Squamous Epith Cells Urine Bacteria
--- NOTE | 2017-08-13 18:38 | CP.PCM.PN ---
Subjective - Date & Time of Evaluation Date of Evaluation: 08/13/17 Time of Evaluation: 15:40 - Subjective Subjective: patient seen and examined. Intubated on ventilatory support, FiO2 60% with PEEP of 16 Sedated on Diprivan Tolerating feeding Afebrile Objective - Vital Signs/Intake and Output Vital Signs (last 24 hours): Temp Pulse Resp BP Pulse Ox 99.9 F H 80 24 102/48 L 95 08/13/17 16:00 08/13/17 18:00 08/13/17 18:00 08/13/17 17:32 08/13/17 18:00 Intake and Output: 08/13/17 08/13/17 06:59 18:59 Intake Total 545.2 837.2 Output Total 350 390 Balance 195.2 447.2 - Medications Medications: Current Medications Acetaminophen (Tylenol 650mg/20.3ml Solution Ud) 650 mg PO Q6 PRN PRN Reason: Temperature Last Admin: 08/13/17 10:45 Dose: 650 mg Aspirin (Ecotrin) 81 mg PO DAILY [facility] Last Admin: 08/13/17 10:22 Dose: 81 mg Clopidogrel Bisulfate (Plavix) 75 mg PO DAILY [facility] Last Admin: 08/13/17 10:22 Dose: 75 mg Famotidine (Pepcid) 20 mg PO DAILY [facility] Last Admin: 08/13/17 10:22 Dose: 20 mg Ferric Sodium Gluconate Complex (Ferrlecit) 125 mg IVPB DAILY [facility] Stop: 08/16/17 10:01 Last Admin: 08/13/17 10:35 Dose: 125 mg Furosemide (Lasix) 60 mg IVP Q12 [facility] Last Admin: 08/13/17 11:00 Dose: 60 mg Heparin Sodium/Sodium Chloride (Heparin 26543 Units/250ml 1/2 Normal Saline) 25 ,000 units in 250 mls @ 11.376 mls/hr IV .[id number] PRN; Protocol; 12 UNITS/KG/HR PRN Reason: PROTOCOL Last Admin: 08/13/17 03:00 Dose: 12.53 units/kg/hr, 11.879 mls/hr Piperacillin Sod/Tazobactam Sod (Zosyn 2.25 Gm Iv Premix) 2.25 gm in 50 mls @ 100 mls/hr IVPB Q8H [facility] Last Admin: 08/13/17 13:00 Dose: 100 mls/hr Propofol (Diprivan) 1,000 mg in 100 mls @ 2.844 mls/hr IV .Q24H PRN; Protocol; 5 MCG/KG/MIN PRN Reason: TITRATE PER MD ORDER Last Admin: 08/13/17 17:20 Dose: 30 mcg/kg/min, 17.064 mls/hr Insulin Aspart (Novolog) 0 unit SC Q6H [facility] FERNANDO PRN Reason: Protocol Last Admin: 08/13/17 18:26 Dose: 4 unit Ipratropium [place] (Atrovent) 0.5 mg IH RQ6 PRN PRN Reason: Shortness of Breath Last Admin: 08/12/17 07:21 Dose: 0.5 mg Lactobacillus Acidophilus (Bacid Acidophilus) 1 cap PO BID [facility] Lorazepam (Ativan) 1 mg IVP Q2H PRN PRN Reason: Agitation Last Admin: 08/12/17 15:20 Dose: 1 mg Metoprolol Succinate (Toprol Xl) 50 mg PO DAILY [facility] Last Admin: 08/13/17 10:56 Dose: 50 mg Midazolam HCl (Versed Inj) 2 mg IVP Q4H PRN PRN Reason: Anxiety Nifedipine (Procardia) 30 mg PO Q8H [facility] Last Admin: 08/13/17 11:30 Dose: Not Given Rosuvastatin Calcium (Crestor) 10 mg PO HS [facility] Last Admin: 08/12/17 21:05 Dose: 10 mg Senna/Docusate Sodium (Senokot S 50 Mg-8.6 Mg) 1 tab PO BID [facility] Last Admin: 08/13/17 18:25 Dose: 1 tab - Labs Labs: 08/13/17 06:26 08/13/17 06:25 PT 13.0 SECONDS (9.7-12.2) H 08/09/17 23:23 INR 1.2 08/09/17 23:23 APTT 60 SECONDS (21-34) H D 08/13/17 06:26 - Head Exam Head Exam: ATRAUMATIC, NORMOCEPHALIC - ENT Exam ENT Exam: Mucous Membranes Moist - Neck Exam Neck Exam: Normal Inspection - Respiratory Exam Respiratory Exam: Decreased Breath Sounds - Cardiovascular Exam Cardiovascular Exam: REGULAR RHYTHM - GI/Abdominal Exam GI & Abdominal Exam: Distended, Soft - Extremities Exam Extremities Exam: Pedal Edema - Neurological Exam Neurological Exam: Altered Assessment and Plan (1) Cardiac arrest Assessment & Plan: Status post cardiac arrest On ventilatory support Reduce PEEP to 12 Lower FiO2 as tolerated Continue antibiotics Continue feedin and sedation Consider thoracentesis by IR Tracheal aspirate for culture and sens Followup renal function Status: Acute (2) Pneumonia Status: Acute (3) History of DVT (deep vein thrombosis) Status: Acute (4) CKD (chronic kidney disease) Status: Acute (5) Acute on chronic renal failure Status: Acute (6) CHF (congestive heart failure) Status: Acute
--- NOTE | 2017-08-13 23:48 | CP.PCM.PN ---
Subjective - Date & Time of Evaluation Date of Evaluation: 08/13/17 Time of Evaluation: 15:30 - Subjective Subjective: Patient seen and evaluated Events noted from last night Was able to move all extremities yesterday Physical Examination - Head Exam Head Exam: ATRAUMATIC, NORMAL INSPECTION - Eye Exam Eye Exam: PERRLA - ENT Exam ENT Exam: Mucous Membranes Moist - Neck Exam Neck Exam: JVD + - Respiratory Exam Respiratory Exam: Clear to Ausculation Bilateral, NORMAL BREATHING PATTERN - Cardiovascular Exam Cardiovascular Exam: +S1, +S2 - GI/Abdominal Exam GI & Abdominal Exam: Soft, Normal Bowel Sounds - Extremities Exam Extremities Exam: Intubated - Neurological Exam Neurological Exam: Intubated and sedated - Skin Skin Exam: Warm Objective - Vital Signs/Intake and Output Vital Signs (last 24 hours): Temp Pulse Resp BP Pulse Ox 100.6 F H 81 23 94/64 L 94 L 08/13/17 20:00 08/13/17 23:00 08/13/17 23:00 08/13/17 22:36 08/13/17 23:00 Intake and Output: 08/13/17 08/14/17 18:59 06:59 Intake Total 837.2 606.0 Output Total 390 120 Balance 447.2 486.0 - Medications Medications: Current Medications Acetaminophen (Tylenol 650mg/20.3ml Solution Ud) 650 mg PO Q6 PRN PRN Reason: Temperature Last Admin: 08/13/17 10:45 Dose: 650 mg Aspirin (Ecotrin) 81 mg PO DAILY [facility] Last Admin: 08/13/17 10:22 Dose: 81 mg Clopidogrel Bisulfate (Plavix) 75 mg PO DAILY [facility] Last Admin: 08/13/17 10:22 Dose: 75 mg Famotidine (Pepcid) 20 mg PO DAILY [facility] Last Admin: 08/13/17 10:22 Dose: 20 mg Ferric Sodium Gluconate Complex (Ferrlecit) 125 mg IVPB DAILY [facility] Stop: 08/16/17 10:01 Last Admin: 08/13/17 10:35 Dose: 125 mg Furosemide (Lasix) 60 mg IVP Q12 [facility] Last Admin: 08/13/17 22:36 Dose: 60 mg Heparin Sodium/Sodium Chloride (Heparin 16693 Units/250ml 1/2 Normal Saline) 25 ,000 units in 250 mls @ 11.376 mls/hr IV .[id number] PRN; Protocol; 12 UNITS/KG/HR PRN Reason: PROTOCOL Last Admin: 08/13/17 22:34 Dose: 12.53 units/kg/hr, 11.879 mls/hr Piperacillin Sod/Tazobactam Sod (Zosyn 2.25 Gm Iv Premix) 2.25 gm in 50 mls @ 100 mls/hr IVPB Q8H [facility] Last Admin: 08/13/17 20:20 Dose: 100 mls/hr Propofol (Diprivan) 1,000 mg in 100 mls @ 2.844 mls/hr IV .Q24H PRN; Protocol; 5 MCG/KG/MIN PRN Reason: TITRATE PER MD ORDER Last Admin: 08/13/17 21:20 Dose: 30 mcg/kg/min, 17.064 mls/hr Insulin Aspart (Novolog) 0 unit SC Q6H [facility]ERNANDO PRN Reason: Protocol Last Admin: 08/13/17 18:26 Dose: 4 unit Ipratropium [place] (Atrovent) 0.5 mg IH RQ6 PRN PRN Reason: Shortness of Breath Last Admin: 08/12/17 07:21 Dose: 0.5 mg Lactobacillus Acidophilus (Bacid Acidophilus) 1 cap PO BID [facility] Lorazepam (Ativan) 1 mg IVP Q2H PRN PRN Reason: Agitation Last Admin: 08/12/17 15:20 Dose: 1 mg Metoprolol Succinate (Toprol Xl) 50 mg PO DAILY [facility] Last Admin: 08/13/17 10:56 Dose: 50 mg Midazolam HCl (Versed Inj) 2 mg IVP Q4H PRN PRN Reason: Anxiety Nifedipine (Procardia) 30 mg PO Q8H [facility] Last Admin: 08/13/17 20:21 Dose: 30 mg Rosuvastatin Calcium (Crestor) 10 mg PO HS [facility] Last Admin: 08/13/17 22:33 Dose: 10 mg Senna/Docusate Sodium (Senokot S 50 Mg-8.6 Mg) 1 tab PO BID [facility] Last Admin: 08/13/17 18:25 Dose: 1 tab - Labs Labs: 08/13/17 06:26 08/13/17 06:25 PT 13.0 SECONDS (9.7-12.2) H 08/09/17 23:23 INR 1.2 08/09/17 23:23 APTT 60 SECONDS (21-34) H D 08/13/17 06:26 Assessment and Plan - Assessment and Plan (Free Text) Assessment: (1) S/P Code Blue Intubated and sedated Likely secondary to Pulmonary Edema (2) CHF exacerbation Assessment and Plan: Continue IV Lasix Check ECHO S/P AICD (3) Pneumonia Assessment and Plan: Afebrile, mild leukocytosis on Admission. Hx of productive cough for almost 2 weeks. CXR findings of left basilar consolidation and left pleural effusion Rocephin and Azithromycin given in the ED Will begin Rocephin and Azithromycin Q24 Start Florastor as well F/U Rapid strep, Influenza A and B studies, Urine Legionella, Mycoplasma studies F/U consult to Dr. Mena (Pulm) Status: Acute (4) CAD (coronary artery disease) Assessment and Plan: Hx of PCI (5) HTN (hypertension) Assessment and Plan: On Metoprolol, Procardia and Cozaar. (Hold parameters in place) Cont to monitor Status: Chronic (6) CKD (chronic kidney disease) Assessment and Plan: Hx of CKD GFR 45 which appears to be aroudn baseline F/U Dr. Miranda recommendations Status: Acute (7) Diabetes mellitus Assessment and Plan: Accuchecks ISS- High Dose F/U A1c Hold home medications at this time Status: Chronic (8) HLD (hyperlipidemia) Assessment and Plan: F/U lipid panel On Crestor 10 mg Po HS Dietary counseling enforced Status: Chronic (9) Constipation Assessment and Plan: Colace 100 mg PO TID until 18:00PM on 08/07/17. If patient has not had a stool, will add on Dulcolax. Status: Chronic (10) Anemia Assessment and Plan: Likely iron deficiency anemia based on prior admissions Iron Studies. F/U Ferritin, Iron, TIBC, % Saturation Monitor Hgb/Hct Status: Chronic (11) History of DVT (deep vein thrombosis) Assessment and Plan: Patient was previously on Eliquis for a prior history of DVT. At this time, will not initiate. Will rather start heparin drip in anticipation for cath procedure. Status: Acute (12) Prophylactic measure Assessment and Plan: Protonix 40 mg PO daily On Heparin Drip in anticipation for cardiac cath- Will f/u with Dr. Cortés as to when Status: Acute
[2017-08-14] MEDS: Piperacill/Tazo 2.25gm in Dex 2.25 GM/50 ML BAG IVPB SCH ×2 (03:31→11:24)
--- NOTE | 2017-08-14 03:31 | CON ---
INFECTIOUS DISEASE CONSULTATION REQUESTED BY: Dr. Campbell as the patient is having fevers. HISTORY OF PRESENT ILLNESS: He is a 77-year-old male. He has a significant coronary artery disease, has a history of stent placement, hypertension, hyperlipidemia, diabetes type 2, renal failure, anemia, history of pacemaker, was admitted with history of DVT and chronic leg edema, came in with chest pain and shortness of breath, and he only uses 1 pillow at night, had some history of swelling, was having cough with productive sputum for 12 days' duration. He denied any sick contacts, and the patient gave some history, otherwise part of it, but right now, he is intubated, sedated. I am not able to get any history from him. Most of the history is taken from the chart. He underwent cardiac arrest with shortness of breath, and was intubated and brought to the ICU and at the present time, he remains intubated, sedated and I am asked to evaluate him with low-grade temp. He did have a triple-lumen placed in his right groin on 08/[address] Berger. He is intubated, sedated, and he is on high PEEP and being followed by multiple consultants. PAST SURGICAL HISTORY: Significant for abdominal hernia repair, pacemaker placement, cardiac stent placement by Dr. Park. FAMILY HISTORY: Mother had vaginal cancer and had diabetes and his father of MS at 68. SOCIAL HISTORY: Negative for smoking or drinking or any drug abuse. ALLERGIES: HE IS NOT ALLERGIC TO ANY MEDICINE. He has history of DVT and dementia and came in with cough, chest pain, and he is being followed by renal at this time, oncologist as well as sign maintenance, and critical care attending. MEDICATIONS: Include aspirin, Plavix, Pepcid, Ferrlecit, Lasix. He is getting 60 q. 12. He is on heparin IV. He is on Novolog, Atrovent, lactobacillus, Ativan, Toprol-XL, Versed, Procardia. He started Zosyn yesterday. He was on Zithromax and Rocephin before, but Zithromax was discontinued with arrhythmias. He is on propofol, Crestor, senna. PHYSICAL EXAMINATION VITAL SIGNS: He is still having low-grade temp of 100.6, 100.9; blood pressure remains by 92/44; pulse is 75; respirations are 24. He is on a vent. GENERAL: He is sedated and intubated and he appears to be a big maryann with a weight of 202 pounds and he is only 5 feet 6 inches. He is obese. HEENT: Head is atraumatic, normocephalic. Eyes are closed. He has a trach present. NECK: Supple. LUNGS: Appear clear at this time. No crackles or rales heard. HEART: S1, S2 is regular. No murmurs appreciated. ABDOMEN: Distended and he is obese, seems to be encroaching onto the lungs. EXTREMITIES: Have mild edema. PSYCHIATRY: He remains sedated, so I do not know his status. LABORATORY DATA: Noted. White count has been up to 21 and now, it has decreased to 13.9, hemoglobin remains 8.8, hematocrit 28.2, platelet count is 291. The differential shows there are only 2 bands. Chemistry shows sodium 145, potassium 3.5, chloride is 105, CO2 is 24, BUN is 72, and creatinine is 3.3. He has renal insufficiency and renal attending is following. 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 Serology shows that there was a urine Strep pneumococcal antigen which was positive, and legionella was negative, flu was negative, mycoplasma was negative, group A beta strep throat was negative, "I do not know if it was in throat or serum," but he has Strep pneumo positive, so he probably had a pneumococcal pneumonia and micro shows that the urine was growing gram-negative rods, but it did not grow further; it was only less than 10,000, which is not significant. He also had a chest, abdomen, and pelvic CT today; it says there is partial consolidation of right lower lobe and almost complete collapse of left lower lobe, likely due to a compressed pleural effusion and atelectasis. The ET tube is seen in appropriate position, so he may have a pleural effusion and there is patchy ground-glass opacity of the upper lobe, may be related to pulmonary vascular congestion and then mediastinum small pericardial effusion, mildly enlarged mediastinal lymph nodes, [id number] right and moderate left pleural effusion, mild hepatomegaly noted, and the kidneys show multiple low-attenuated cysts from the cortex. There is 8-mm nonobstructing calculus at the mid to lower pole of left kidney. There is high attenuation exophytic lesion on the upper pole of the left kidney, may represent hemorrhagic cyst. No evidence of hydronephrosis or hydroureter. Scattered colonic diverticulosis, but no obstruction. At this time, it remains that he has [id number] pleural effusions on the right, associated with atelectasis of the lower lobe, nonspecific ground-glass opacity. At this time, the line appears to be relatively new, was just placed in on . He has bilateral infiltrates. He is hypotensive. He is on Zosyn at this time, and white count is coming down, we will continue that, and we will follow with other consultants. He is already on diuretics and we will follow, and we will also get another sputum done and another urine done. Allan Lawrence MD
[2017-08-14] MEDS: (Novolog) Insulin Aspart, Recombinant 100 u/ml 10 ml vial SC SCH ×3 (06:21→17:46)
[2017-08-14 06:26] LABS: BASO # 0.1 K/uL (0.0-0.2); EOS # 0.2 K/uL (0.0-0.7); EOS % 1.3 % (0.0-4.0); MEAN PLATELET VOLUME 10.1 fL (7.2-11.7)
[2017-08-14 06:27] LABS: ABG ALLEN TEST POS; ABG MECHANICAL RATE 18; ARTERIAL BLOOD GAS MODE PRVC; ARTERIAL BLOOD HGB O2 SAT 92.7 % (95.0-98.0); ATERIAL BLOOD GAS PEEP 14; CARBOXYHEMOGLOBIN 2.1 % (0.5-1.5); DRAW SITE R RAD; HHB 4.1 % (0.0-5.0)
[2017-08-14 06:45] LABS: POTASSIUM 3.5 mmol/L (3.6-5.2)
[2017-08-14 06:47] LABS: ALB/GLOB RATIO 0.9 (1.0-2.1); BILIRUBIN,TOTAL 0.6 mg/dL (0.2-1.3); TOTAL PROTEIN 6.3 g/dL (6.3-8.3)
[2017-08-14 06:48] LABS: CALCIUM 7.9 mg/dl (8.6-10.4); MAGNESIUM 2.3 mg/dL (1.6-2.3); PHOSPHOROUS 4.7 mg/dL (2.5-4.5)
[2017-08-14 07:14] LABS: BASO % 0.5 % (0.0-2.0); HEMATOCRIT 29.6 % (35.0-51.0); LYMPH # 1.2 K/uL (1.0-4.3); LYMPH % 8.3 % (20.0-40.0); MEAN CORPUSCULAR HEMOGLOBIN 23.1 pg (27.0-31.0); MEAN CORPUSCULAR HGB CONC 31.2 g/dL (33.0-37.0); MONO # 1.2 K/uL (0.0-0.8); MONO % 7.9 % (0.0-10.0); NRBC % 0.2 % (0.0-2.0); PLATELET COUNT 325 K/uL (130-400); RED CELL DISTRIBUTION WIDTH 21.8 % (11.5-14.5)
[2017-08-14] MEDS: Propofol 10 mg/ml 1,000 MG/100 ML VIAL IV PRN (08:15)
[2017-08-14] MEDS: Ferric Sodium Gluconat Complex 62.5 mg/5 ml Vial IVPB SCH (09:45)
[2017-08-14] MEDS: Lactobacillus Acidophilus 500 MU Cap PO SCH ×2 (09:45→17:06)
[2017-08-14] MEDS: Docusate-Senna 50 mg-8.6 mg Tab PO SCH ×2 (09:47→17:06)
[2017-08-14] MEDS: Metoprolol Succinate 50 mg XL Tab PO SCH (09:47)
[2017-08-14 09:56] LABS: EOSINOPHIL 2 % (0-4); TOTAL CELLS COUNTED 100
[2017-08-14 09:57] LABS: GIANT PLATELETS PRESENT; NEUTROPHIL 79 % (50-75)
[2017-08-14 09:58] LABS: SPHEROCYTES SLIGHT
--- NOTE | 2017-08-14 10:21 | RAD ---
HISTORY: follow up COMPARISON: Comparison is made to 08/13/2017 FINDINGS: LUNGS: Interval worsening of pulmonary vascular congestion since the previous exam. The ET tube is seen at appropriate position. PLEURA: There is blunting of the right costophrenic angle. There is suspicious for left pleural effusion. No evidence of pneumothorax. CARDIOVASCULAR: The cardiac silhouette is enlarged. Left-sided single wire pacemaker/ AICD is seen in place. OSSEOUS STRUCTURES: No significant abnormalities. VISUALIZED UPPER ABDOMEN: The NG tube seen extending to the stomach OTHER FINDINGS: None. IMPRESSION: Interval mild worsening of the pulmonary congestion since the previous exam. Otherwise no significant interval change.
--- NOTE | 2017-08-14 13:40 | CP.CCUPN ---
CCU Subjective - Physician Review Events Since Last Encounter (Free Text): 08/14/17 13:37 sedated on vent. CCU Objective - Vital Signs / Intake & Output Vital Signs (Last 4 hours): Vital Signs Temp Pulse Resp BP Pulse Ox 08/14/17 12:19 88 29 H 95/39 L 97 08/14/17 12:12 102 H 26 H 97 08/14/17 12:00 89 26 H 97 08/14/17 11:58 97 H 27 H 86/43 L 97 08/14/17 11:49 98.7 F 08/14/17 11:00 67 27 H 100 08/14/17 10:58 72 26 H 118/40 L 100 08/14/17 10:00 78 27 H 100 08/14/17 09:59 116/49 L 08/14/17 09:58 76 27 H 116/49 L 100 Intake and Output (Last 8hrs): Intake & Output 08/13/17 08/14/17 08/14/17 22:59 06:59 14:59 Intake Total 898.0 747.0 509.6 Output Total 220 240 150 Balance 678.0 507.0 359.6 Weight 204 lb 1 oz Intake: IV 450 100 69 Intake, IV Amount 203.0 282.0 200.6 Left Hand 83.3 47.6 Right Distal Port 119.7 118.4 50 Right Medial Port Femoral 47.6 59.5 Right Proximal Port 68.4 91.1 Tube Feeding 245 315 240 Other 50 Output: Urine 220 240 150 Urethral (Jaquez) 220 240 150 Other: # Bowel Movements 0 0 - Physical Exam Head: Positive for: Atraumatic, Normocephalic Pupils: Positive for: Sluggish Conjunctiva: Positive for: Normal Pharnyx: Positive for: Normal Respiratory/Chest: Positive for: Other (on vent) Cardiovascular: Positive for: Regular Rate and Rhythm, Normal S1, S2 Abdomen: Positive for: Distention, Normal Bowel Sounds Psychiatric: Positive for: Other (sedated) - Medications Active Medications: Active Medications Generic Name Dose Route Start Last Admin Trade Name Freq PRN Reason Stop Dose Admin Acetaminophen 650 mg 08/11/17 17:40 08/13/17 10:45 Tylenol 650mg/20.3ml Solution Ud PO 650 mg Q6 PRN Administration Temperature Aspirin 81 mg 08/14/17 11:15 08/14/17 11:24 Aspirin Chewable PO 81 mg DAILY LUIS FERNANDO Administration Clopidogrel Bisulfate 75 mg 08/12/17 11:00 08/14/17 09:46 Plavix PO 75 mg DAILY LUIS FERNANDO Administration Famotidine 20 mg 08/09/17 10:00 08/14/17 09:46 Pepcid PO 20 mg DAILY LUIS FERNANDO Administration Ferric Sodium Gluconate Complex 125 mg 08/08/17 10:00 08/14/17 09:45 Ferrlecit IVPB 08/16/17 10:01 125 mg DAILY LUIS FERNANDO Administration Furosemide 60 mg 08/11/17 10:30 08/14/17 09:59 Lasix IVP 60 mg Q12 LUIS FERNANDO Administration Heparin Sodium/Sodium Chloride 25,000 units in 250 mls @ 11.376 mls/hr 15:00 08/13/17 22:34 Heparin 77871 Units/250ml 1/2 Normal Saline IV 12.53 units/kg/hr .[id number] PRN 11.879 mls/hr PROTOCOL Administration Protocol 12 UNITS/KG/HR Piperacillin Sod/Tazobactam Sod 2.25 gm in 50 mls @ 100 mls/hr 08/12/17 20:00 08/14/17 11:24 Zosyn 2.25 Gm Iv Premix IVPB 100 mls/hr Q8H LUIS FERNANDO Administration Propofol 1,000 mg in 100 mls @ 2.844 mls/hr 08/12/17 21:00 08/14/17 11:51 Diprivan IV 20 mcg/kg/min .Q24H PRN 11.376 mls/hr TITRATE PER MD ORDER Titration Protocol 5 MCG/KG/MIN Insulin Aspart 0 unit 08/11/17 00:00 08/14/17 11:51 Novolog SC 8 unit Q6H LUIS FERNANDO Administration Protocol Insulin Glargine 10 unit 08/14/17 22:00 Lantus SC HS [facility] Ipratropium [place] 0.5 mg 08/07/17 08:47 08/12/17 07:21 Atrovent IH 0.5 mg RQ6 PRN Administration Shortness of Breath Lactobacillus Acidophilus 1 cap 08/13/17 18:00 08/14/17 09:45 Bacid Acidophilus PO 1 cap BID LUIS FERNANDO Administration Lorazepam 1 mg 08/10/17 13:52 08/12/17 15:20 Ativan IVP 1 mg Q2H PRN Administration Agitation Metoprolol Succinate 50 mg 08/07/17 13:54 08/14/17 09:47 Toprol Xl PO 50 mg DAILY LUIS FERNANDO Administration Midazolam HCl 2 mg 08/12/17 14:26 Versed Inj IVP Q4H PRN Anxiety Nifedipine 30 mg 08/12/17 11:45 08/14/17 11:24 Procardia PO 30 mg Q8H LUIS FERNANDO Administration Rosuvastatin Calcium 10 mg 08/06/17 22:00 08/13/17 22:33 Crestor PO 10 mg HS LUIS FERNANDO Administration Senna/Docusate Sodium 1 tab 08/13/17 11:30 08/14/17 09:47 Senokot S 50 Mg-8.6 Mg PO 1 tab BID LUIS FERNANDO Administration - Patient Studies Lab Studies: Microbiology Studies 08/12/17 20:15 Urine Culture - Final Urine Gram Negative Sarmad Lab Studies 08/14/17 08/14/17 08/14/17 Range/Units 11:33 06:19 06:19 WBC (4.8-10.8) K/uL RBC (4.40-5.90) Mil/uL Hgb (12.0-18.0) g/dL Hct (35.0-51.0) % MCV (80.0-94.0) fL MCH (27.0-31.0) pg MCHC (33.0-37.0) g/dL RDW (11.5-14.5) % Plt Count (130-400) K/uL MPV (7.2-11.7) fL Neut % (Auto) (50.0-75.0) % Lymph % (Auto) (20.0-40.0) % [place] % (Auto) (0.0-10.0) % Eos % (Auto) (0.0-4.0) % Baso % (Auto) (0.0-2.0) % Neut # (1.8-7.0) K/uL Lymph # (1.0-4.3) K/uL [place] # (0.0-0.8) K/uL Eos # (0.0-0.7) K/uL Baso # (0.0-0.2) K/uL Neutrophils % (Manual) (50-75) % Band Neutrophils % (0-2) % Lymphocytes % (Manual) (20-40) % Monocytes % (Manual) (0-10) % Eosinophils % (Manual) (0-4) % Platelet Estimate (NORMAL) Giant Platelets Polychromasia Hypochromasia (manual) Poikilocytosis (manual Anisocytosis (manual) Microcytosis (manual) Spherocytes Tear Drop Cells Ovalocytes Yakov Cells Schistocytes APTT 67 H D (21-34) SECONDS Puncture Site pCO2 (35-45) mm/Hg pO2 (80-100) mm/Hg HCO3 (21-28) mmol/L ABG pH (7.35-7.45) ABG Total CO2 (22-28) mmol/L ABG O2 Saturation (95-98) % ABG Base Excess (-2.0-3.0) mmol/L ABG Hemoglobin (11.7-17.4) g/dL ABG Carboxyhemoglobin (0.5-1.5) % POC ABG HHb (Measured) (0.0-5.0) % ABG Methemoglobin (0.0-3.0) % Uriel Test A-a O2 Difference mm/Hg Respiratory Index Hgb O2 Saturation (95.0-98.0) % Vent Mode Mechanical Rate FiO2 % Tidal Volume PEEP Pressure Support CPAP Sodium 143 (132-148) mmol/L Potassium 3.5 L (3.6-5.2) mmol/L Chloride 105 (98-107) mmol/L Carbon Dioxide 22 (22-30) mmol/L Anion Gap 20 (10-20) BUN 77 H (9-20) mg/dL Creatinine 4.3 H (0.8-1.5) MG/DL Est GFR ( Amer) 16 Est GFR (Non-Af Amer) 13 POC Glucose (mg/dL) 312 H (65-110) mg/dL Random Glucose 248 H (75-110) mg/dL Calcium 7.9 L (8.6-10.4) mg/dl Phosphorus 4.7 H (2.5-4.5) mg/dL Magnesium 2.3 (1.6-2.3) mg/dL Total Bilirubin 0.6 (0.2-1.3) mg/dL AST 37 (17-59) U/L ALT 67 (21-72) U/L Alkaline Phosphatase 124 (38-126) U/L Total Protein 6.3 (6.3-8.3) g/dL Albumin 3.0 L (3.5-5.0) g/dL Globulin 3.3 (2.2-3.9) gm/dL Albumin/Globulin Ratio 0.9 L (1.0-2.1) Procalcitonin (0.19-0.49) NG/ML 08/14/17 08/14/17 08/14/17 Range/Units 06:19 05:21 05:12 WBC 15.0 H (4.8-10.8) K/uL RBC 4.01 L (4.40-5.90) Mil/uL Hgb 9.2 L (12.0-18.0) g/dL Hct 29.6 L (35.0-51.0) % MCV 74.0 L (80.0-94.0) fL MCH 23.1 L (27.0-31.0) pg MCHC 31.2 L (33.0-37.0) g/dL RDW 21.8 H (11.5-14.5) % Plt Count 325 (130-400) K/uL MPV 10.1 (7.2-11.7) fL Neut % (Auto) 82.0 H (50.0-75.0) % Lymph % (Auto) 8.3 L (20.0-40.0) % [place] % (Auto) 7.9 (0.0-10.0) % Eos % (Auto) 1.3 (0.0-4.0) % Baso % (Auto) 0.5 (0.0-2.0) % Neut # 12.3 H (1.8-7.0) K/uL Lymph # 1.2 (1.0-4.3) K/uL [place] # 1.2 H (0.0-0.8) K/uL Eos # 0.2 (0.0-0.7) K/uL Baso # 0.1 (0.0-0.2) K/uL Neutrophils % (Manual) 79 H (50-75) % Band Neutrophils % 4 H (0-2) % Lymphocytes % (Manual) 9 L (20-40) % Monocytes % (Manual) 6 (0-10) % Eosinophils % (Manual) 2 (0-4) % Platelet Estimate Normal (NORMAL) Giant Platelets Present Polychromasia Slight Hypochromasia (manual) Slight Poikilocytosis (manual Slight Anisocytosis (manual) Moderate Microcytosis (manual) Slight Spherocytes Slight Tear Drop Cells Slight Ovalocytes Slight [place] Cells Slight Schistocytes Slight APTT (21-34) SECONDS Puncture Site R rad pCO2 38 (35-45) mm/Hg pO2 67 L (80-100) mm/Hg HCO3 23.0 (21-28) mmol/L ABG pH 7.38 (7.35-7.45) ABG Total CO2 23.7 (22-28) mmol/L ABG O2 Saturation 95.8 (95-98) % ABG Base Excess -2.4 L (-2.0-3.0) mmol/L ABG Hemoglobin 9.3 L (11.7-17.4) g/dL ABG Carboxyhemoglobin 2.1 H (0.5-1.5) % POC ABG HHb (Measured) 4.1 (0.0-5.0) % ABG Methemoglobin 1.0 (0.0-3.0) % Uriel Test Pos A-a O2 Difference 313.0 mm/Hg Respiratory Index 4.7 Hgb O2 Saturation 92.7 L (95.0-98.0) % Vent Mode Prvc Mechanical Rate 18 FiO2 60.0 % Tidal Volume 450 PEEP 14 Pressure Support CPAP Sodium (132-148) mmol/L Potassium (3.6-5.2) mmol/L Chloride (98-107) mmol/L Carbon Dioxide (22-30) mmol/L Anion Gap (10-20) BUN (9-20) mg/dL Creatinine (0.8-1.5) MG/DL Est GFR ( Amer) Est GFR (Non-Af Amer) POC Glucose (mg/dL) 313 H (65-110) mg/dL Random Glucose (75-110) mg/dL Calcium (8.6-10.4) mg/dl Phosphorus (2.5-4.5) mg/dL Magnesium (1.6-2.3) mg/dL Total Bilirubin (0.2-1.3) mg/dL AST (17-59) U/L ALT (21-72) U/L Alkaline Phosphatase (38-126) U/L Total Protein (6.3-8.3) g/dL Albumin (3.5-5.0) g/dL Globulin (2.2-3.9) gm/dL Albumin/Globulin Ratio (1.0-2.1) Procalcitonin (0.19-0.49) NG/ML 08/13/17 08/13/17 08/13/17 Range/Units 23:41 17:31 16:30 WBC (4.8-10.8) K/uL RBC (4.40-5.90) Mil/uL Hgb (12.0-18.0) g/dL Hct (35.0-51.0) % MCV (80.0-94.0) fL MCH (27.0-31.0) pg MCHC (33.0-37.0) g/dL RDW (11.5-14.5) % Plt Count (130-400) K/uL MPV (7.2-11.7) fL Neut % (Auto) (50.0-75.0) % Lymph % (Auto) (20.0-40.0) % [place] % (Auto) (0.0-10.0) % Eos % (Auto) (0.0-4.0) % Baso % (Auto) (0.0-2.0) % Neut # (1.8-7.0) K/uL Lymph # (1.0-4.3) K/uL [place] # (0.0-0.8) K/uL Eos # (0.0-0.7) K/uL Baso # (0.0-0.2) K/uL Neutrophils % (Manual) (50-75) % Band Neutrophils % (0-2) % Lymphocytes % (Manual) (20-40) % Monocytes % (Manual) (0-10) % Eosinophils % (Manual) (0-4) % Platelet Estimate (NORMAL) Giant Platelets Polychromasia Hypochromasia (manual) Poikilocytosis (manual Anisocytosis (manual) Microcytosis (manual) Spherocytes Tear Drop Cells Ovalocytes [place] Cells Schistocytes APTT (21-34) SECONDS Puncture Site Rra pCO2 37 (35-45) mm/Hg pO2 60 L (80-100) mm/Hg HCO3 23.1 (21-28) mmol/L ABG pH 7.39 (7.35-7.45) ABG Total CO2 23.5 (22-28) mmol/L ABG O2 Saturation 94.1 L (95-98) % ABG Base Excess -2.3 L (-2.0-3.0) mmol/L ABG Hemoglobin 8.4 L (11.7-17.4) g/dL ABG Carboxyhemoglobin 1.9 H (0.5-1.5) % POC ABG HHb (Measured) 5.8 H (0.0-5.0) % ABG Methemoglobin 0.4 (0.0-3.0) % Uriel Test Na A-a O2 Difference 179.0 mm/Hg Respiratory Index 3.0 Hgb O2 Saturation 91.9 L (95.0-98.0) % Vent Mode Cpap Mechanical Rate FiO2 40.0 % Tidal Volume PEEP Pressure Support 18 CPAP 5 Sodium (132-148) mmol/L Potassium (3.6-5.2) mmol/L Chloride (98-107) mmol/L Carbon Dioxide (22-30) mmol/L Anion Gap (10-20) BUN (9-20) mg/dL Creatinine (0.8-1.5) MG/DL Est GFR ( Amer) Est GFR (Non-Af Amer) POC Glucose (mg/dL) 304 H 234 H (65-110) mg/dL Random Glucose (75-110) mg/dL Calcium (8.6-10.4) mg/dl Phosphorus (2.5-4.5) mg/dL Magnesium (1.6-2.3) mg/dL Total Bilirubin (0.2-1.3) mg/dL AST (17-59) U/L ALT (21-72) U/L Alkaline Phosphatase (38-126) U/L Total Protein (6.3-8.3) g/dL Albumin (3.5-5.0) g/dL Globulin (2.2-3.9) gm/dL Albumin/Globulin Ratio (1.0-2.1) Procalcitonin (0.19-0.49) NG/ML 08/13/17 08/13/17 08/13/17 Range/Units 13:51 13:51 06:25 WBC (4.8-10.8) K/uL RBC (4.40-5.90) Mil/uL Hgb (12.0-18.0) g/dL Hct (35.0-51.0) % MCV (80.0-94.0) fL MCH (27.0-31.0) pg MCHC (33.0-37.0) g/dL RDW (11.5-14.5) % Plt Count (130-400) K/uL MPV (7.2-11.7) fL Neut % (Auto) (50.0-75.0) % Lymph % (Auto) (20.0-40.0) % [place] % (Auto) (0.0-10.0) % Eos % (Auto) (0.0-4.0) % Baso % (Auto) (0.0-2.0) % Neut # (1.8-7.0) K/uL Lymph # (1.0-4.3) K/uL [place] # (0.0-0.8) K/uL Eos # (0.0-0.7) K/uL Baso # (0.0-0.2) K/uL Neutrophils % (Manual) (50-75) % Band Neutrophils % (0-2) % Lymphocytes % (Manual) (20-40) % Monocytes % (Manual) (0-10) % Eosinophils % (Manual) (0-4) % Platelet Estimate (NORMAL) Giant Platelets Polychromasia Hypochromasia (manual) Poikilocytosis (manual Anisocytosis (manual) Microcytosis (manual) Spherocytes Tear Drop Cells Ovalocytes [place] Cells Schistocytes APTT (21-34) SECONDS Puncture Site Lra pCO2 36 (35-45) mm/Hg pO2 122 H (80-100) mm/Hg HCO3 23.3 (21-28) mmol/L ABG pH 7.40 (7.35-7.45) ABG Total CO2 23.4 (22-28) mmol/L ABG O2 Saturation 99.1 H (95-98) % ABG Base Excess -2.0 (-2.0-3.0) mmol/L ABG Hemoglobin 13.6 (11.7-17.4) g/dL ABG Carboxyhemoglobin 1.5 (0.5-1.5) % POC ABG HHb (Measured) 0.9 (0.0-5.0) % ABG Methemoglobin 1.0 (0.0-3.0) % Uriel Test Pos A-a O2 Difference 332.0 mm/Hg Respiratory Index 2.7 Hgb O2 Saturation 96.5 (95.0-98.0) % Vent Mode Mechanical Rate 18 FiO2 70.0 % Tidal Volume 450 PEEP 16 Pressure Support CPAP Sodium (132-148) mmol/L Potassium (3.6-5.2) mmol/L Chloride (98-107) mmol/L Carbon Dioxide (22-30) mmol/L Anion Gap (10-20) BUN (9-20) mg/dL Creatinine (0.8-1.5) MG/DL Est GFR ( Amer) Est GFR (Non-Af Amer) POC Glucose (mg/dL) (65-110) mg/dL Random Glucose (75-110) mg/dL Calcium (8.6-10.4) mg/dl Phosphorus 3.9 (2.5-4.5) mg/dL Magnesium 2.2 (1.6-2.3) mg/dL Total Bilirubin (0.2-1.3) mg/dL AST (17-59) U/L ALT (21-72) U/L Alkaline Phosphatase (38-126) U/L Total Protein (6.3-8.3) g/dL Albumin (3.5-5.0) g/dL Globulin (2.2-3.9) gm/dL Albumin/Globulin Ratio (1.0-2.1) Procalcitonin 6.29 H (0.19-0.49) NG/ML Laboratory Results - last 24 hr 08/13/17 08/13/17 08/13/17 06:25 13:51 13:51 WBC RBC Hgb Hct MCV MCH MCHC RDW Plt Count MPV Neut % (Auto) Lymph % (Auto) [place] % (Auto) Eos % (Auto) Baso % (Auto) Neut # Lymph # [place] # Eos # Baso # Neutrophils % (Manual) Band Neutrophils % Lymphocytes % (Manual) Monocytes % (Manual) Eosinophils % (Manual) Platelet Estimate Giant Platelets Polychromasia Hypochromasia (manual) Poikilocytosis (manual Anisocytosis (manual) Microcytosis (manual) Spherocytes Tear Drop Cells Ovalocytes Yakov Cells Schistocytes APTT Puncture Site Lra pCO2 36 pO2 122 H HCO3 23.3 ABG pH 7.40 ABG Total CO2 23.4 ABG O2 Saturation 99.1 H ABG Base Excess -2.0 ABG Hemoglobin 13.6 ABG Carboxyhemoglobin 1.5 POC ABG HHb (Measured) 0.9 ABG Methemoglobin 1.0 Uriel Test Pos A-a O2 Difference 332.0 Respiratory Index 2.7 Hgb O2 Saturation 96.5 Vent Mode Mechanical Rate 18 FiO2 70.0 Tidal Volume 450 PEEP 16 Pressure Support CPAP Sodium Potassium Chloride Carbon Dioxide Anion Gap BUN Creatinine Est GFR ( Amer) Est GFR (Non-Af Amer) POC Glucose (mg/dL) Random Glucose Calcium Phosphorus 3.9 Magnesium 2.2 Total Bilirubin AST ALT Alkaline Phosphatase Total Protein Albumin Globulin Albumin/Globulin Ratio Procalcitonin 6.29 H 08/13/17 08/13/17 08/13/17 16:30 17:31 23:41 WBC RBC Hgb Hct MCV MCH MCHC RDW Plt Count MPV Neut % (Auto) Lymph % (Auto) [place] % (Auto) Eos % (Auto) Baso % (Auto) Neut # Lymph # [place] # Eos # Baso # Neutrophils % (Manual) Band Neutrophils % Lymphocytes % (Manual) Monocytes % (Manual) Eosinophils % (Manual) Platelet Estimate Giant Platelets Polychromasia Hypochromasia (manual) Poikilocytosis (manual Anisocytosis (manual) Microcytosis (manual) Spherocytes Tear Drop Cells Ovalocytes Yakov Cells Schistocytes APTT Puncture Site Rra pCO2 37 pO2 60 L HCO3 23.1 ABG pH 7.39 ABG Total CO2 23.5 ABG O2 Saturation 94.1 L ABG Base Excess -2.3 L ABG Hemoglobin 8.4 L ABG Carboxyhemoglobin 1.9 H POC ABG HHb (Measured) 5.8 H ABG Methemoglobin 0.4 Uriel Test Na A-a O2 Difference 179.0 Respiratory Index 3.0 Hgb O2 Saturation 91.9 L Vent Mode Cpap Mechanical Rate FiO2 40.0 Tidal Volume PEEP Pressure Support 18 CPAP 5 Sodium Potassium Chloride Carbon Dioxide Anion Gap BUN Creatinine Est GFR ( Amer) Est GFR (Non-Af Amer) POC Glucose (mg/dL) 234 H 304 H Random Glucose Calcium Phosphorus Magnesium Total Bilirubin AST ALT Alkaline Phosphatase Total Protein Albumin Globulin Albumin/Globulin Ratio Procalcitonin 08/14/17 08/14/17 08/14/17 05:12 05:21 06:19 WBC 15.0 H RBC 4.01 L Hgb 9.2 L Hct 29.6 L MCV 74.0 L MCH 23.1 L MCHC 31.2 L RDW 21.8 H Plt Count 325 MPV 10.1 Neut % (Auto) 82.0 H Lymph % (Auto) 8.3 L [place] % (Auto) 7.9 Eos % (Auto) 1.3 Baso % (Auto) 0.5 Neut # 12.3 H Lymph # 1.2 [place] # 1.2 H Eos # 0.2 Baso # 0.1 Neutrophils % (Manual) 79 H Band Neutrophils % 4 H Lymphocytes % (Manual) 9 L Monocytes % (Manual) 6 Eosinophils % (Manual) 2 Platelet Estimate Normal Giant Platelets Present Polychromasia Slight Hypochromasia (manual) Slight Poikilocytosis (manual Slight Anisocytosis (manual) Moderate Microcytosis (manual) Slight Spherocytes Slight Tear Drop Cells Slight Ovalocytes Slight [place] Cells Slight Schistocytes Slight APTT Puncture Site R rad pCO2 38 pO2 67 L HCO3 23.0 ABG pH 7.38 ABG Total CO2 23.7 ABG O2 Saturation 95.8 ABG Base Excess -2.4 L ABG Hemoglobin 9.3 L ABG Carboxyhemoglobin 2.1 H POC ABG HHb (Measured) 4.1 ABG Methemoglobin 1.0 Uriel Test Pos A-a O2 Difference 313.0 Respiratory Index 4.7 Hgb O2 Saturation 92.7 L Vent Mode Prvc Mechanical Rate 18 FiO2 60.0 Tidal Volume 450 PEEP 14 Pressure Support CPAP Sodium Potassium Chloride Carbon Dioxide Anion Gap BUN Creatinine Est GFR ( Amer) Est GFR (Non-Af Amer) POC Glucose (mg/dL) 313 H Random Glucose Calcium Phosphorus Magnesium Total Bilirubin AST ALT Alkaline Phosphatase Total Protein Albumin Globulin Albumin/Globulin Ratio Procalcitonin 08/14/17 08/14/17 08/14/17 06:19 06:19 11:33 WBC RBC Hgb Hct MCV MCH MCHC RDW Plt Count MPV Neut % (Auto) Lymph % (Auto) [place] % (Auto) Eos % (Auto) Baso % (Auto) Neut # Lymph # [place] # Eos # Baso # Neutrophils % (Manual) Band Neutrophils % Lymphocytes % (Manual) Monocytes % (Manual) Eosinophils % (Manual) Platelet Estimate Giant Platelets Polychromasia Hypochromasia (manual) Poikilocytosis (manual Anisocytosis (manual) Microcytosis (manual) Spherocytes Tear Drop Cells Ovalocytes [place] Cells Schistocytes APTT 67 H D Puncture Site pCO2 pO2 HCO3 ABG pH ABG Total CO2 ABG O2 Saturation ABG Base Excess ABG Hemoglobin ABG Carboxyhemoglobin POC ABG HHb (Measured) ABG Methemoglobin Uriel Test A-a O2 Difference Respiratory Index Hgb O2 Saturation Vent Mode Mechanical Rate FiO2 Tidal Volume PEEP Pressure Support CPAP Sodium 143 Potassium 3.5 L Chloride 105 Carbon Dioxide 22 Anion Gap 20 BUN 77 H Creatinine 4.3 H Est GFR ( Amer) 16 Est GFR (Non-Af Amer) 13 POC Glucose (mg/dL) 312 H Random Glucose 248 H Calcium 7.9 L Phosphorus 4.7 H Magnesium 2.3 Total Bilirubin 0.6 AST 37 ALT 67 Alkaline Phosphatase 124 Total Protein 6.3 Albumin 3.0 L Globulin 3.3 Albumin/Globulin Ratio 0.9 L Procalcitonin Fingerstick Blood Sugar Results: 105 Review of Systems - Review of Systems Systems not reviewed;Unavailable: Intubated Critical Care Progress Note - Ventilator Checklist Head of Bed 30 Degrees: Yes Daily Sedation Vacation: Yes Daily Assessment of Readiness to Wean: Yes Daily Spontaneous Breathing Trial: Yes PUD Prophalyxis: Yes DVT Prophylaxis: Yes - Nutrition Nutrition: Nutrition Category Date Time Status Heart Healthy Diet [DIET] Diets 08/09/17 Lunch Active Assessment/Plan (1) ARDS (adult respiratory distress syndrome) Assessment and plan: 77 yo M admitted to ICU from floors, patient was to get CT scan and had respiratory distress, a code blue was called and patient was transferred to ICU and intubated. Neuro: Sedated with propofol drip. Pulm: acute respiratory failure in severe ARDS. CT chest shows large right pleural effusion, consulted IR for pigtail placement (pneumothorax risk is high , so pigtail placement would be safest). Patient is showing slow improvement using lung protective strategy from [facility]DSNet protocol. CV: NSTEMI on heparin drip, metoprolol po qd, nifedipine po q8h. Hem: aspirin, plavix, heparin drip, holding eliquis. Renal: ALIREZA, Lasix 60mg IV q12h, becoming less effective, urine output decreasing. patient will most likely need dialysis, will discuss with [facility]. Endo: DM type 2, on insulin sliding scale for coverage GI: no recent BM's, Started Senna/Colace and enema. No obstruction seen on CT abdomen. ID: severe sepsis from pneumonia, continue Zosyn. DVT proph - heparin gtt GI proph - pepcid jaquez for strict I/O's during acute illness Code status - full code Critical Care Time spent 35 minutes Multi-disciplinary rounds were performed with house staff, nursing, speech therapy, respiratory therapy, pharmacy and nutrition with integrated input from the primary team/attending and other consulting services. The documented time is cumulative and includes review of patient data/exams/labs/chart review and examination of the patient on rounds and throughout the day; time is exclusive of any procedures or teaching time. Current Visit: Yes Status: Acute
--- NOTE | 2017-08-14 14:35 | CP.PCM.PN ---
Subjective - Date & Time of Evaluation Date of Evaluation: 08/12/17 Time of Evaluation: 13:00 - Subjective Subjective: Vented Objective - Vital Signs/Intake and Output Vital Signs (last 24 hours): Temp Pulse Resp BP Pulse Ox 98.7 F 72 26 H 107/50 L 96 08/14/17 11:49 08/14/17 14:00 08/14/17 14:00 08/14/17 13:58 08/14/17 14:00 Intake and Output: 08/14/17 08/14/17 06:59 18:59 Intake Total 1289.0 602.9 Output Total 330 135 Balance 959.0 467.9 - Medications Medications: Current Medications Acetaminophen (Tylenol 650mg/20.3ml Solution Ud) 650 mg PO Q6 PRN PRN Reason: Temperature Last Admin: 08/13/17 10:45 Dose: 650 mg Aspirin (Aspirin Chewable) 81 mg PO DAILY [facility] Last Admin: 08/14/17 11:24 Dose: 81 mg Clopidogrel Bisulfate (Plavix) 75 mg PO DAILY [facility] Last Admin: 08/14/17 09:46 Dose: 75 mg Famotidine (Pepcid) 20 mg PO DAILY [facility] Last Admin: 08/14/17 09:46 Dose: 20 mg Ferric Sodium Gluconate Complex (Ferrlecit) 125 mg IVPB DAILY [facility] Stop: 08/16/17 10:01 Last Admin: 08/14/17 09:45 Dose: 125 mg Furosemide (Lasix) 60 mg IVP Q12 [facility] Last Admin: 08/14/17 09:59 Dose: 60 mg Heparin Sodium/Sodium Chloride (Heparin 18553 Units/250ml 1/2 Normal Saline) 25 ,000 units in 250 mls @ 11.376 mls/hr IV .[id number] PRN; Protocol; 12 UNITS/KG/HR PRN Reason: PROTOCOL Last Admin: 08/13/17 22:34 Dose: 12.53 units/kg/hr, 11.879 mls/hr Piperacillin Sod/Tazobactam Sod (Zosyn 2.25 Gm Iv Premix) 2.25 gm in 50 mls @ 100 mls/hr IVPB Q8H [facility] Last Admin: 08/14/17 11:24 Dose: 100 mls/hr Propofol (Diprivan) 1,000 mg in 100 mls @ 2.844 mls/hr IV .Q24H PRN; Protocol; 5 MCG/KG/MIN PRN Reason: TITRATE PER MD ORDER Last Titration: 08/14/17 11:51 Dose: 20 mcg/kg/min, 11.376 mls/hr Insulin Aspart (Novolog) 0 unit SC Q6H [facility] PRN Reason: Protocol Last Admin: 08/14/17 11:51 Dose: 8 unit Insulin Glargine (Lantus) 10 unit SC [facility] Ipratropium [place] (Atrovent) 0.5 mg IH RQ6 PRN PRN Reason: Shortness of Breath Last Admin: 08/12/17 07:21 Dose: 0.5 mg Lactobacillus Acidophilus (Bacid Acidophilus) 1 cap PO BID [facility] Last Admin: 08/14/17 09:45 Dose: 1 cap Lorazepam (Ativan) 1 mg IVP Q2H PRN PRN Reason: Agitation Last Admin: 08/12/17 15:20 Dose: 1 mg Metoprolol Succinate (Toprol Xl) 50 mg PO DAILY [facility] Last Admin: 08/14/17 09:47 Dose: 50 mg Midazolam HCl (Versed Inj) 2 mg IVP Q4H PRN PRN Reason: Anxiety Nifedipine (Procardia) 30 mg PO Q8H [facility] Last Admin: 08/14/17 11:24 Dose: 30 mg Rosuvastatin Calcium (Crestor) 10 mg PO HS [facility] Last Admin: 08/13/17 22:33 Dose: 10 mg Senna/Docusate Sodium (Senokot S 50 Mg-8.6 Mg) 1 tab PO BID [facility] Last Admin: 08/14/17 09:47 Dose: 1 tab - Labs Labs: 08/14/17 06:19 08/14/17 06:19 PT 13.0 SECONDS (9.7-12.2) H 08/09/17 23:23 INR 1.2 08/09/17 23:23 APTT 67 SECONDS (21-34) H D 08/14/17 06:19 - Head Exam Head Exam: ATRAUMATIC - Eye Exam Eye Exam: Normal appearance - ENT Exam ENT Exam: Mucous Membranes Dry - Respiratory Exam Respiratory Exam: NORMAL BREATHING PATTERN - Cardiovascular Exam Cardiovascular Exam: +S1, +S2 - GI/Abdominal Exam GI & Abdominal Exam: Normal Bowel Sounds Assessment and Plan (1) Anemia Assessment & Plan: 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
--- NOTE | 2017-08-14 14:39 | CP.PCM.PN ---
Subjective - Date & Time of Evaluation Date of Evaluation: 08/13/17 Time of Evaluation: 17:00 - Subjective Subjective: Vented Objective - Vital Signs/Intake and Output Vital Signs (last 24 hours): Temp Pulse Resp BP Pulse Ox 98.7 F 72 26 H 107/50 L 96 08/14/17 11:49 08/14/17 14:00 08/14/17 14:00 08/14/17 13:58 08/14/17 14:00 Intake and Output: 08/14/17 08/14/17 06:59 18:59 Intake Total 1289.0 602.9 Output Total 330 135 Balance 959.0 467.9 - Medications Medications: Current Medications Acetaminophen (Tylenol 650mg/20.3ml Solution Ud) 650 mg PO Q6 PRN PRN Reason: Temperature Last Admin: 08/13/17 10:45 Dose: 650 mg Aspirin (Aspirin Chewable) 81 mg PO DAILY [facility] Last Admin: 08/14/17 11:24 Dose: 81 mg Clopidogrel Bisulfate (Plavix) 75 mg PO DAILY [facility] Last Admin: 08/14/17 09:46 Dose: 75 mg Famotidine (Pepcid) 20 mg PO DAILY [facility] Last Admin: 08/14/17 09:46 Dose: 20 mg Ferric Sodium Gluconate Complex (Ferrlecit) 125 mg IVPB DAILY [facility] Stop: 08/16/17 10:01 Last Admin: 08/14/17 09:45 Dose: 125 mg Furosemide (Lasix) 60 mg IVP Q12 [facility] Last Admin: 08/14/17 09:59 Dose: 60 mg Heparin Sodium/Sodium Chloride (Heparin 77969 Units/250ml 1/2 Normal Saline) 25 ,000 units in 250 mls @ 11.376 mls/hr IV .[id number] PRN; Protocol; 12 UNITS/KG/HR PRN Reason: PROTOCOL Last Admin: 08/13/17 22:34 Dose: 12.53 units/kg/hr, 11.879 mls/hr Piperacillin Sod/Tazobactam Sod (Zosyn 2.25 Gm Iv Premix) 2.25 gm in 50 mls @ 100 mls/hr IVPB Q8H [facility] Last Admin: 08/14/17 11:24 Dose: 100 mls/hr Propofol (Diprivan) 1,000 mg in 100 mls @ 2.844 mls/hr IV .Q24H PRN; Protocol; 5 MCG/KG/MIN PRN Reason: TITRATE PER MD ORDER Last Titration: 08/14/17 11:51 Dose: 20 mcg/kg/min, 11.376 mls/hr Insulin Aspart (Novolog) 0 unit SC Q6H [facility] PRN Reason: Protocol Last Admin: 08/14/17 11:51 Dose: 8 unit Insulin Glargine (Lantus) 10 unit SC [facility] Ipratropium [place] (Atrovent) 0.5 mg IH RQ6 PRN PRN Reason: Shortness of Breath Last Admin: 08/12/17 07:21 Dose: 0.5 mg Lactobacillus Acidophilus (Bacid Acidophilus) 1 cap PO BID [facility] Last Admin: 08/14/17 09:45 Dose: 1 cap Lorazepam (Ativan) 1 mg IVP Q2H PRN PRN Reason: Agitation Last Admin: 08/12/17 15:20 Dose: 1 mg Metoprolol Succinate (Toprol Xl) 50 mg PO DAILY [facility] Last Admin: 08/14/17 09:47 Dose: 50 mg Midazolam HCl (Versed Inj) 2 mg IVP Q4H PRN PRN Reason: Anxiety Nifedipine (Procardia) 30 mg PO Q8H [facility] Last Admin: 08/14/17 11:24 Dose: 30 mg Rosuvastatin Calcium (Crestor) 10 mg PO HS [facility] Last Admin: 08/13/17 22:33 Dose: 10 mg Senna/Docusate Sodium (Senokot S 50 Mg-8.6 Mg) 1 tab PO BID [facility] Last Admin: 08/14/17 09:47 Dose: 1 tab - Labs Labs: 08/14/17 06:19 08/14/17 06:19 PT 13.0 SECONDS (9.7-12.2) H 08/09/17 23:23 INR 1.2 08/09/17 23:23 APTT 67 SECONDS (21-34) H D 08/14/17 06:19 - Head Exam Head Exam: ATRAUMATIC - Eye Exam Eye Exam: Normal appearance - ENT Exam ENT Exam: Mucous Membranes Dry - Respiratory Exam Respiratory Exam: NORMAL BREATHING PATTERN - Cardiovascular Exam Cardiovascular Exam: +S1, +S2 - GI/Abdominal Exam GI & Abdominal Exam: Normal Bowel Sounds Assessment and Plan (1) Anemia Assessment & Plan: iron deficiency on Ferrlecit renal disease and chronic disease from sepsis Status: Chronic (2) Leukocytosis Assessment & Plan: on antibiotics Status: Acute (3) Coagulopathy Assessment & Plan: anticoagulation Status: Acute
--- NOTE | 2017-08-14 19:09 | CP.PCM.PN ---
Subjective - Date & Time of Evaluation Date of Evaluation: 08/14/17 Time of Evaluation: 03:00 - Subjective Subjective: dictated Objective - Vital Signs/Intake and Output Vital Signs (last 24 hours): Temp Pulse Resp BP Pulse Ox 99.4 F 72 23 103/50 L 97 08/14/17 16:00 08/14/17 17:00 08/14/17 17:00 08/14/17 16:58 08/14/17 17:00 Intake and Output: 08/14/17 08/15/17 18:59 06:59 Intake Total 819.4 Output Total 205 Balance 614.4 - Medications Medications: Current Medications Acetaminophen (Tylenol 650mg/20.3ml Solution Ud) 650 mg PO Q6 PRN PRN Reason: Temperature Last Admin: 08/13/17 10:45 Dose: 650 mg Aspirin (Aspirin Chewable) 81 mg PO DAILY [facility] Last Admin: 08/14/17 11:24 Dose: 81 mg Clopidogrel Bisulfate (Plavix) 75 mg PO DAILY [facility] Last Admin: 08/14/17 09:46 Dose: 75 mg Famotidine (Pepcid) 20 mg PO DAILY [facility] Last Admin: 08/14/17 09:46 Dose: 20 mg Ferric Sodium Gluconate Complex (Ferrlecit) 125 mg IVPB DAILY [facility] Stop: 08/16/17 10:01 Last Admin: 08/14/17 09:45 Dose: 125 mg Furosemide (Lasix) 60 mg IVP Q12 [facility] Last Admin: 08/14/17 09:59 Dose: 60 mg Heparin Sodium/Sodium Chloride (Heparin 10177 Units/250ml 1/2 Normal Saline) 25 ,000 units in 250 mls @ 11.376 mls/hr IV .[id number] PRN; Protocol; 12 UNITS/KG/HR PRN Reason: PROTOCOL Last Admin: 08/13/17 22:34 Dose: 12.53 units/kg/hr, 11.879 mls/hr Propofol (Diprivan) 1,000 mg in 100 mls @ 2.844 mls/hr IV .Q24H PRN; Protocol; 5 MCG/KG/MIN PRN Reason: TITRATE PER MD ORDER Last Titration: 08/14/17 11:51 Dose: 20 mcg/kg/min, 11.376 mls/hr Meropenem 500 mg/ Sodium (Chloride) 100 mls @ 100 mls/hr IVPB Q12 [facility] Insulin Aspart (Novolog) 0 unit SC Q6H [facility] PRN Reason: Protocol Last Admin: 08/14/17 17:46 Dose: 6 unit Insulin Glargine (Lantus) 10 unit SC HS [facility] Ipratropium [place] (Atrovent) 0.5 mg IH RQ6 PRN PRN Reason: Shortness of Breath Last Admin: 08/12/17 07:21 Dose: 0.5 mg Lactobacillus Acidophilus (Bacid Acidophilus) 1 cap PO BID [facility] Last Admin: 08/14/17 17:06 Dose: 1 cap Lorazepam (Ativan) 1 mg IVP Q2H PRN PRN Reason: Agitation Last Admin: 08/12/17 15:20 Dose: 1 mg Metoprolol Succinate (Toprol Xl) 50 mg PO DAILY [facility] Last Admin: 08/14/17 09:47 Dose: 50 mg Midazolam HCl (Versed Inj) 2 mg IVP Q4H PRN PRN Reason: Anxiety Nifedipine (Procardia) 30 mg PO Q8H [facility] Last Admin: 08/14/17 11:24 Dose: 30 mg Rosuvastatin Calcium (Crestor) 10 mg PO HS [facility] Last Admin: 08/13/17 22:33 Dose: 10 mg Senna/Docusate Sodium (Senokot S 50 Mg-8.6 Mg) 1 tab PO BID [facility] Last Admin: 08/14/17 17:06 Dose: 1 tab - Labs Labs: 08/14/17 06:19 08/14/17 06:19 PT 13.0 SECONDS (9.7-12.2) H 08/09/17 23:23 INR 1.2 08/09/17 23:23 APTT 67 SECONDS (21-34) H D 08/14/17 06:19
[2017-08-14] MEDS: Heparin25000 units/250ml 1/2NS 25,000 UNITS/250 ML BAG IV PRN (20:28)
--- NOTE | 2017-08-14 21:33 | CP.PCM.PN ---
Subjective - Date & Time of Evaluation Date of Evaluation: 08/14/17 Time of Evaluation: 07:15 - Subjective Subjective: Medical Attending Note Patient seen, examined, and case discussed with ICU. Patient is on sedation; unable to ROS secondary to clinic state. Objective - Vital Signs/Intake and Output Vital Signs (last 24 hours): Temp Pulse Resp BP Pulse Ox 99.2 F 68 27 H 89/42 L 96 08/14/17 20:00 08/14/17 21:00 08/14/17 21:00 08/14/17 20:58 08/14/17 21:00 Intake and Output: 08/14/17 08/15/17 18:59 06:59 Intake Total 819.4 336.6 Output Total 205 45 Balance 614.4 291.6 - Medications Medications: Current Medications Acetaminophen (Tylenol 650mg/20.3ml Solution Ud) 650 mg PO Q6 PRN PRN Reason: Temperature Last Admin: 08/13/17 10:45 Dose: 650 mg Aspirin (Aspirin Chewable) 81 mg PO DAILY [facility] Last Admin: 08/14/17 11:24 Dose: 81 mg Clopidogrel Bisulfate (Plavix) 75 mg PO DAILY [facility] Last Admin: 08/14/17 09:46 Dose: 75 mg Famotidine (Pepcid) 20 mg PO DAILY [facility] Last Admin: 08/14/17 09:46 Dose: 20 mg Ferric Sodium Gluconate Complex (Ferrlecit) 125 mg IVPB DAILY [facility] Stop: 08/16/17 10:01 Last Admin: 08/14/17 09:45 Dose: 125 mg Furosemide (Lasix) 60 mg IVP Q12 [facility] Last Admin: 08/14/17 09:59 Dose: 60 mg Heparin Sodium/Sodium Chloride (Heparin 45421 Units/250ml 1/2 Normal Saline) 25 ,000 units in 250 mls @ 11.376 mls/hr IV .[id number] PRN; Protocol; 12 UNITS/KG/HR PRN Reason: PROTOCOL Last Admin: 08/14/17 20:28 Dose: 12.53 units/kg/hr, 11.879 mls/hr Propofol (Diprivan) 1,000 mg in 100 mls @ 2.844 mls/hr IV .Q24H PRN; Protocol; 5 MCG/KG/MIN PRN Reason: TITRATE PER MD ORDER Last Titration: 08/14/17 11:51 Dose: 20 mcg/kg/min, 11.376 mls/hr Meropenem 500 mg/ Sodium (Chloride) 100 mls @ 100 mls/hr IVPB Q12 [facility] Insulin Aspart (Novolog) 0 unit SC Q6H [facility] PRN Reason: Protocol Last Admin: 08/14/17 17:46 Dose: 6 unit Insulin Glargine (Lantus) 10 unit SC HS [facility] Ipratropium [place] (Atrovent) 0.5 mg IH RQ6 PRN PRN Reason: Shortness of Breath Last Admin: 08/12/17 07:21 Dose: 0.5 mg Lactobacillus Acidophilus (Bacid Acidophilus) 1 cap PO BID [facility] Last Admin: 08/14/17 17:06 Dose: 1 cap Lorazepam (Ativan) 1 mg IVP Q2H PRN PRN Reason: Agitation Last Admin: 08/12/17 15:20 Dose: 1 mg Metoprolol Succinate (Toprol Xl) 50 mg PO DAILY [facility] Last Admin: 08/14/17 09:47 Dose: 50 mg Midazolam HCl (Versed Inj) 2 mg IVP Q4H PRN PRN Reason: Anxiety Rosuvastatin Calcium (Crestor) 10 mg PO HS [facility] Last Admin: 08/13/17 22:33 Dose: 10 mg Senna/Docusate Sodium (Senokot S 50 Mg-8.6 Mg) 1 tab PO BID [facility] Last Admin: 08/14/17 17:06 Dose: 1 tab - Labs Labs: 08/14/17 06:19 08/14/17 06:19 PT 13.0 SECONDS (9.7-12.2) H 08/09/17 23:23 INR 1.2 08/09/17 23:23 APTT 67 SECONDS (21-34) H D 08/14/17 06:19 - Constitutional Appears: Chronically Ill - Head Exam Head Exam: NORMAL INSPECTION - Eye Exam Eye Exam: Normal appearance - ENT Exam ENT Exam: Mucous Membranes Dry - Respiratory Exam Respiratory Exam: Decreased Breath Sounds, Rales, Rhonchi Additional comments: intubated, on vent, sedated - Cardiovascular Exam Cardiovascular Exam: +S1, +S2 - GI/Abdominal Exam GI & Abdominal Exam: Distended, Soft, Normal Bowel Sounds. absent: Guarding, Rigid, Tenderness, Rebound - Extremities Exam Extremities Exam: Normal Capillary Refill, Pedal Edema. absent: Tenderness Additional comments: On prevalon boots - Neurological Exam Additional comments: patient is sedated - Skin Skin Exam: Normal Color, Warm Assessment and Plan - Assessment and Plan (Free Text) Assessment: (1) Acute Respiratory Failure ARDS Cardiac Arrest Pulmonary Edema NONSTEMI Assessment and Plan: * Code Blue on 08/10: asystole, cardiopulmonary resuscitative measures initiated , requiring 3 epis, bicarbonate, ROSC achieved and intubated and brought to the ICU for further management * 08/10: Central line placed by ICU; placed on tridil drip; heparin drip c/w * 08/11: Patient placed on Lasix IV. On heparin drip. No plans for cardiac cath at time time. Chest Xray (08/11/17): NG tube extending into the stomach. Endotracheal tube extending into the mild thoracic trachea. Left sided pacemaker. multiple overlying external wires and tubing, Moderate severe venous congestion with prominent confluent airspace opacities in the mid to lower lung zones with associated small to moderate bilateral pleural effusions. scattered nodular densities in both lungs. Cardiomegaly. Degenerative changes in the spine and shoulders. * 08/12: Chest xray (08/12/17): right basilar opacity. Small right pleural effusion. Lines and tubes unchanged.-->C/w Lasix. Discussed with Dr. Mena (pulm) , recommended for CT Chest w/o contrast for possible ARDS. increased peep 10 * 08/13: pending chest /abdomen xray for this morning; self-extubated and reintubated overnight; off tridil drip secondary to hypotension post intubation ; on heparin drip * CT Chest/Abdomen/Pelvis (08/13): moderate to large bilateral pleural effusions largeer on thr right associated with atelectasis at lower lobes. Nonspecific ground-glass opacities in the upper lobe new may be due to pulmonary vascular congestion. moderately cardiomegaly. No evidence of bowel obstruction. Moderately to markedly enlarged prostate. nonobstructing calculus at mid to lower pole left kidney. Gallstone without evidence of cholecystitis. Scattered diverticulosis without evidence of diverticulitis * 08/14: CT Chest-->loculated pleural effusion--> ICU recommend for IR Pigtail given high risk of pneumothorax (3) Chest pain Assessment and Plan: * Cardiology (Dr. Cortés) on board-->help appreciated * All trops WNL; Troponin positive in light of CPR * EKG x2 = Sinus tachycardia notes with possible left atrial enlargement; no apparent T segment elevations in contiguous leads * Heparin drip restarted * Patient's cardiac catherization cancelled secondary to rise in creatinine (2.3 ) on 08/09/17. * Patient has hx of abnormal stress test. Discussed with cardiology and nephrology given change in Cr on 08/09. * Echocardiogram (08/08/17): left ventricle systolic function is severely impaired. EF: 25-30%; global hypokinesis of left ventricle mild aortic regurgitation. Mitral regurgitation is moderate. Moderate-severe pulmonary hypertesnion * hx of ACID * on Heparin drip * Aspirin 81mg PO daily * Plavix 75mg PO daily * Lasix 60mg IV Q 12hours * Crestor 10mg POqHS * Metoprolol Succinate 50mg PO daily * Procardia 30mg PO Q 8H * Lasix 60mg IV Q16 * Off Arb secondary to ARF * TSH: 1.16; T4: 1.53 (4) Acute Systolic CHF exacerbation Assessment and Plan: * Transferred to the ICU on 08/10 following cardiac arrest and intubation. * Echocardiogram (08/08/17): left ventrcile systolic function is severely impaired. EF: 25-30%; global hypokinesis of left ventricle mild aortic regurgitation. Mitral regurgitation is moderate. Moderate-severe pulmonary hypertension * Height of bed at 45 degrees, Strict ins and outs, monitor daily weights * Start Lasix 60mg IV Q 12hours * Aspirin 81mg PO daily * Plavix 75mg PO daily * Lasix 60mg IV Q 12hours * Crestor 10mg POqHS * Metoprolol Succinate 50mg PO daily * Procardia 30mg PO Q 8H * Off Arb secondary to ARF Status: Acute (5) Pneumonia Assessment and Plan: * Pulmonary (Dr. Mena) on board-->help appreciated * Infectious Disease (Dr. Lawrence)-->help appreciated * Rapid A strep, Influenza A and B studies, Urine Legionella, Mycoplasma studies = Negative * Florastor 250mg PO bid * +Strep Pneumoniae in the urine * 08/12: Will repeat urine studies and exchange out the jaquez * 08/13: Off Rocephin; start Zosyn 2.25 IV Q 8 hours; f/u urine studies Status: Acute (6) CAD (coronary artery disease) Assessment and Plan: * Hx of cardiac stent in the past * Heparin Drip * Cardiac cath on hold given events on 08/10 Status: Acute (7) HTN (hypertension) Assessment and Plan: * Metoprolol, Procardia and d/c Cozaar. (Hold parameters in place) following code blue * off Tridrip 08/12 * Cont to monitor Status: Chronic (8) CKD (chronic kidney disease) Assessment and Plan: * Dr. Miranda (nephrology) consulted on the case * Hx of CKD * GFR 45 which appears to be around baseline * Stopped ARB given rise in CR * Off IV fluids given pulmonary edema * Start Lasix 60mg IV Q 12hours * Monitor in and output * 08/14: Per nursing, urine output is decreasing, discussed with ICU, recommend LABORATORY ASST, discussed with nephrology who will address. Will need to follow-up with family regarding dialysis Status: Acute (9) Diabetes mellitus Assessment and Plan: * Accuchecks QAC and Hs * NISS- High Dose * A1c 8.4 * Hold home medications at this time Status: Chronic (10) HLD (hyperlipidemia) Assessment and Plan: * On Crestor 10 mg Po HS * Dietary counseling enforced Status: Chronic (11) Constipation Assessment and Plan: * Will need to monitor; has not had a bowel movement in spite of enema * Colace 100mg PO TID * 08/12: Will given ducolax suppository X1 * 08/13: has not had bowel movement; ordered for abdominal/chest xray in light of abdominal distension * CT Chest/Abdomen/Pelvis (08/13): moderate to large bilateral pleural effusions largeer on thr right associated with atelectasis at lower lobes. Nonspecific ground-glass opacities in the upper lobe new may be due to pulmonary vascular congestion. moderately cardiomegaly. No evidence of bowel obstruction. Moderately to markedly enlarged prostate. nonobstructing calculus at mid to lower pole left kidney. Gallstone without evidence of cholecystitis. Scattered diverticulosis without evidence of diverticulitis * 08/14: Patient is not obstructed per review CT scan; will need to encourage bowel movement Status: Chronic (12) Anemia Assessment and Plan: * Heme-oncology (Dr. Giles bender) on board-->help appreciated * Likely iron deficiency anemia based on prior admissions * Ferritin 27.4, Iron 22, TIBC 322, % Saturation 7 * Ferric Sodium Gluconate 125mg IVPB daily (active 08/08-08/16) * Monitor Hgb/Hct Status: Chronic (13) History of DVT (deep vein thrombosis) Assessment and Plan: * Patient was previously on Eliquis for a prior history of DVT. * Repeat dopplers are negative for DVT * On Heparin Drip Status: Acute (14) Abnormal UA * Exchange jaquez out and repeat urine cultures--->unclear if jaquez was exchanged out (15) Confusion; Alzheimer's Dementia Assessment and Plan: * Per daughter, patient has been getting bouts of confusion over the past year but appears at baseline. Patient has not seen formal neurology as outpatient per daughter. Per , prior to event, noted Alzheimers' disease dx one year ago * CT head w/o contrast (08/10/17):acute os subacute lacune infarct is not excluded in the left basal ganglia inferiorly with definitive chronic lacune identified in the right basal ganglia superiorly. No acute or subacute lobar brain infarction is appreciable by standard CT criteria. Mild age-related neuro degenerative changes are identifed. No acute intracranial hemorrhage or mass is identified throughout * 08/11: Patient gets agitated and will fight to pull the intubation tube out per nursing. Was placed on sedation and Ativan PRN * 08/12: patient is responsive to questions, able to move all extremities, off sedation. Patient is on PRN Versed and Ativan PRN. Will respond to yes and no questions * 08/13: Back on sedation since reintubation; patient is moving all extremities * 08/14: Is on sedation (14) Prophylactic measure Assessment and Plan: * pepcid 20mg PO daily * On Heparin Drip * Cardiac cath cancelled on 08/09/17 secondary to acute rise in Cr * Transferred to ICU s/p code blue and respiratory failure on 08/10 Status: Acute Attending/Attestation - Attestation I have personally seen and examined this patient.: Yes I have fully participated in the care of the patient.: Yes I have reviewed all pertinent clinical information, including history, physical exam and plan: Yes
[2017-08-14] MEDS: Meropenem 500 MG in Sodium Chloride 0.9% 100 ML IVPB SCH (21:41)
[2017-08-14] MEDS: (Lantus) Insulin Glargine, Recombinant SC SCH (21:42)
--- NOTE | 2017-08-14 22:13 | CP.PCM.PN ---
Subjective - Date & Time of Evaluation Date of Evaluation: 08/14/17 Time of Evaluation: 08:40 - Subjective Subjective: Patient seen and evaluated Intubated and sedated Objective - Vital Signs/Intake and Output Vital Signs (last 24 hours): Temp Pulse Resp BP Pulse Ox 99.2 F 68 27 H 89/42 L 96 08/14/17 20:00 08/14/17 21:00 08/14/17 21:00 08/14/17 20:58 08/14/17 21:00 Intake and Output: 08/14/17 08/15/17 18:59 06:59 Intake Total 819.4 336.6 Output Total 205 45 Balance 614.4 291.6 - Medications Medications: Current Medications Acetaminophen (Tylenol 650mg/20.3ml Solution Ud) 650 mg PO Q6 PRN PRN Reason: Temperature Last Admin: 08/13/17 10:45 Dose: 650 mg Aspirin (Aspirin Chewable) 81 mg PO DAILY [facility] Last Admin: 08/14/17 11:24 Dose: 81 mg Clopidogrel Bisulfate (Plavix) 75 mg PO DAILY [facility] Last Admin: 08/14/17 09:46 Dose: 75 mg Famotidine (Pepcid) 20 mg PO DAILY [facility] Last Admin: 08/14/17 09:46 Dose: 20 mg Ferric Sodium Gluconate Complex (Ferrlecit) 125 mg IVPB DAILY [facility] Stop: 08/16/17 10:01 Last Admin: 08/14/17 09:45 Dose: 125 mg Furosemide (Lasix) 60 mg IVP Q12 [facility] FERNANDO Last Admin: 08/14/17 09:59 Dose: 60 mg Heparin Sodium/Sodium Chloride (Heparin 68443 Units/250ml 1/2 Normal Saline) 25 ,000 units in 250 mls @ 11.376 mls/hr IV .[id number] PRN; Protocol; 12 UNITS/KG/HR PRN Reason: PROTOCOL Last Admin: 08/14/17 20:28 Dose: 12.53 units/kg/hr, 11.879 mls/hr Propofol (Diprivan) 1,000 mg in 100 mls @ 2.844 mls/hr IV .Q24H PRN; Protocol; 5 MCG/KG/MIN PRN Reason: TITRATE PER MD ORDER Last Titration: 08/14/17 11:51 Dose: 20 mcg/kg/min, 11.376 mls/hr Meropenem 500 mg/ Sodium (Chloride) 100 mls @ 100 mls/hr IVPB Q12 [facility] Last Admin: 08/14/17 21:41 Dose: 100 mls/hr Insulin Aspart (Novolog) 0 unit SC Q6H [facility] FERNANDO PRN Reason: Protocol Last Admin: 08/14/17 17:46 Dose: 6 unit Insulin Glargine (Lantus) 10 unit SC [facility] Last Admin: 08/14/17 21:42 Dose: 10 u Ipratropium [place] (Atrovent) 0.5 mg IH RQ6 PRN PRN Reason: Shortness of Breath Last Admin: 08/12/17 07:21 Dose: 0.5 mg Lactobacillus Acidophilus (Bacid Acidophilus) 1 cap PO BID [facility] Last Admin: 08/14/17 17:06 Dose: 1 cap Lorazepam (Ativan) 1 mg IVP Q2H PRN PRN Reason: Agitation Last Admin: 08/12/17 15:20 Dose: 1 mg Metoprolol Succinate (Toprol Xl) 50 mg PO DAILY [facility] Last Admin: 08/14/17 09:47 Dose: 50 mg Midazolam HCl (Versed Inj) 2 mg IVP Q4H PRN PRN Reason: Anxiety Rosuvastatin Calcium (Crestor) 10 mg PO [facility] Last Admin: 08/14/17 21:42 Dose: 10 mg Senna/Docusate Sodium (Senokot S 50 Mg-8.6 Mg) 1 tab PO BID [facility] Last Admin: 08/14/17 17:06 Dose: 1 tab - Labs Labs: 08/14/17 06:19 08/14/17 06:19 PT 13.0 SECONDS (9.7-12.2) H 08/09/17 23:23 INR 1.2 08/09/17 23:23 APTT 67 SECONDS (21-34) H D 08/14/17 06:19 - Head Exam Head Exam: ATRAUMATIC, NORMAL INSPECTION - Eye Exam Eye Exam: Normal appearance, PERRL - ENT Exam ENT Exam: Mucous Membranes Moist - Neck Exam Neck Exam: Normal Inspection - Respiratory Exam Respiratory Exam: Decreased Breath Sounds - Cardiovascular Exam Cardiovascular Exam: REGULAR RHYTHM, +S1, +S2 - GI/Abdominal Exam GI & Abdominal Exam: Soft, Normal Bowel Sounds - Neurological Exam Additional comments: Sedated Assessment and Plan - Assessment and Plan (Free Text) Assessment: (1) Acute Respiratory Failure ARDS Cardiac Arrest Pulmonary Edema NONSTEMI Assessment and Plan: * Code Blue on 08/10: asystole, cardiopulmonary resuscitative measures initiated , requiring 3 epis, bicarbonate, ROSC achieved and intubated and brought to the ICU for further management * 08/10: Central line placed by ICU; placed on tridil drip; heparin drip c/w * 08/11: Patient placed on Lasix IV. On heparin drip. No plans for cardiac cath at time time. Chest Xray (08/11/17): NG tube extending into the stomach. Endotracheal tube extending into the mild thoracic trachea. Left sided pacemaker. multiple overlying external wires and tubing, Moderate severe venous congestion with prominent confluent airspace opacities in the mid to lower lung zones with associated small to moderate bilateral pleural effusions. scattered nodular densities in both lungs. Cardiomegaly. Degenerative changes in the spine and shoulders. * 08/12: Chest xray (08/12/17): right basilar opacity. Small right pleural effusion. Lines and tubes unchanged.-->C/w Lasix. Discussed with Dr. Mena (pulm) , recommended for CT Chest w/o contrast for possible ARDS. increased peep 10 * 08/13: pending chest /abdomen xray for this morning; self-extubated and reintubated overnight; off tridil drip secondary to hypotension post intubation ; on heparin drip * CT Chest/Abdomen/Pelvis (08/13): moderate to large bilateral pleural effusions largeer on thr right associated with atelectasis at lower lobes. Nonspecific ground-glass opacities in the upper lobe new may be due to pulmonary vascular congestion. moderately cardiomegaly. No evidence of bowel obstruction. Moderately to markedly enlarged prostate. nonobstructing calculus at mid to lower pole left kidney. Gallstone without evidence of cholecystitis. Scattered diverticulosis without evidence of diverticulitis * 08/14: CT Chest-->loculated pleural effusion--> ICU recommend for IR Pigtail given high risk of pneumothorax (3) Chest pain Assessment and Plan: * Cardiology (Dr. Cortés) on board-->help appreciated * All trops WNL; Troponin positive in light of CPR * EKG x2 = Sinus tachycardia notes with possible left atrial enlargement; no apparent T segment elevations in contiguous leads * Heparin drip restarted * Patient's cardiac catherization cancelled secondary to rise in creatinine (2.3 ) on 08/09/17. * Patient has hx of abnormal stress test. Discussed with cardiology and nephrology given change in Cr on 08/09. * Echocardiogram (08/08/17): left ventricle systolic function is severely impaired. EF: 25-30%; global hypokinesis of left ventricle mild aortic regurgitation. Mitral regurgitation is moderate. Moderate-severe pulmonary hypertesnion * hx of ACID * on Heparin drip * Aspirin 81mg PO daily * Plavix 75mg PO daily * Lasix 60mg IV Q 12hours * Crestor 10mg POqHS * Metoprolol Succinate 50mg PO daily * Procardia 30mg PO Q 8H * Lasix 60mg IV Q16 * Off Arb secondary to ARF * TSH: 1.16; T4: 1.53 (4) Acute Systolic CHF exacerbation Assessment and Plan: * Transferred to the ICU on 08/10 following cardiac arrest and intubation. * Echocardiogram (08/08/17): left ventrcile systolic function is severely impaired. EF: 25-30%; global hypokinesis of left ventricle mild aortic regurgitation. Mitral regurgitation is moderate. Moderate-severe pulmonary hypertension * Height of bed at 45 degrees, Strict ins and outs, monitor daily weights * Start Lasix 60mg IV Q 12hours * Aspirin 81mg PO daily * Plavix 75mg PO daily * Lasix 60mg IV Q 12hours * Crestor 10mg POqHS * Metoprolol Succinate 50mg PO daily * Procardia 30mg PO Q 8H * Off Arb secondary to ARF Status: Acute (5) Pneumonia Assessment and Plan: * Pulmonary (Dr. Mena) on board-->help appreciated * Infectious Disease (Dr. Lawrence)-->help appreciated * Rapid A strep, Influenza A and B studies, Urine Legionella, Mycoplasma studies = Negative * Florastor 250mg PO bid * +Strep Pneumoniae in the urine * 08/12: Will repeat urine studies and exchange out the jaquez * 08/13: Off Rocephin; start Zosyn 2.25 IV Q 8 hours; f/u urine studies Status: Acute (6) CAD (coronary artery disease) Assessment and Plan: * Hx of cardiac stent in the past * Heparin Drip * Cardiac cath on hold given events on 08/10 Status: Acute (7) HTN (hypertension) Assessment and Plan: * Metoprolol, Procardia and d/c Cozaar. (Hold parameters in place) following code blue * off Tridrip 08/12 * Cont to monitor Status: Chronic (8) CKD (chronic kidney disease) Assessment and Plan: * Dr. Miranda (nephrology) consulted on the case * Hx of CKD * GFR 45 which appears to be around baseline * Stopped ARB given rise in CR * Off IV fluids given pulmonary edema * Start Lasix 60mg IV Q 12hours * Monitor in and output * 08/14: Per nursing, urine output is decreasing, discussed with ICU, recommend FLORIST HELPER, discussed with nephrology who will address. Will need to follow-up with family regarding dialysis Status: Acute (9) Diabetes mellitus Assessment and Plan: * Accuchecks QAC and Hs * NISS- High Dose * A1c 8.4 * Hold home medications at this time Status: Chronic (10) HLD (hyperlipidemia) Assessment and Plan: * On Crestor 10 mg Po HS * Dietary counseling enforced Status: Chronic (11) Constipation Assessment and Plan: * Will need to monitor; has not had a bowel movement in spite of enema * Colace 100mg PO TID * 08/12: Will given ducolax suppository X1 * 08/13: has not had bowel movement; ordered for abdominal/chest xray in light of abdominal distension * CT Chest/Abdomen/Pelvis (08/13): moderate to large bilateral pleural effusions largeer on thr right associated with atelectasis at lower lobes. Nonspecific ground-glass opacities in the upper lobe new may be due to pulmonary vascular congestion. moderately cardiomegaly. No evidence of bowel obstruction. Moderately to markedly enlarged prostate. nonobstructing calculus at mid to lower pole left kidney. Gallstone without evidence of cholecystitis. Scattered diverticulosis without evidence of diverticulitis * 08/14: Patient is not obstructed per review CT scan; will need to encourage bowel movement Status: Chronic (12) Anemia Assessment and Plan: * Heme-oncology (Dr. Giles bender) on board-->help appreciated * Likely iron deficiency anemia based on prior admissions * Ferritin 27.4, Iron 22, TIBC 322, % Saturation 7 * Ferric Sodium Gluconate 125mg IVPB daily (active 08/08-08/16) * Monitor Hgb/Hct Status: Chronic (13) History of DVT (deep vein thrombosis) Assessment and Plan: * Patient was previously on Eliquis for a prior history of DVT. * Repeat dopplers are negative for DVT * On Heparin Drip Status: Acute (14) Abnormal UA * Exchange jaquez out and repeat urine cultures--->unclear if jaquez was exchanged out (15) Confusion; Alzheimer's Dementia Assessment and Plan: * Per daughter, patient has been getting bouts of confusion over the past year but appears at baseline. Patient has not seen formal neurology as outpatient per daughter. Per , prior to event, noted Alzheimers' disease dx one year ago * CT head w/o contrast (08/10/17):acute os subacute lacune infarct is not excluded in the left basal ganglia inferiorly with definitive chronic lacune identified in the right basal ganglia superiorly. No acute or subacute lobar brain infarction is appreciable by standard CT criteria. Mild age-related neuro degenerative changes are identifed. No acute intracranial hemorrhage or mass is identified throughout * 08/11: Patient gets agitated and will fight to pull the intubation tube out per nursing. Was placed on sedation and Ativan PRN * 08/12: patient is responsive to questions, able to move all extremities, off sedation. Patient is on PRN Versed and Ativan PRN. Will respond to yes and no questions * 08/13: Back on sedation since reintubation; patient is moving all extremities * 08/14: Is on sedation (14) Prophylactic measure Assessment and Plan: * pepcid 20mg PO daily * On Heparin Drip * Cardiac cath cancelled on 08/09/17 secondary to acute rise in Cr * Transferred to ICU s/p code blue and respiratory failure on 08/10 Status: Acute
--- NOTE | 2017-08-15 00:32 | PN ---
SUBJECTIVE: The patient was seen today around 3:00. The was at the bedside. He remains sedated on the ventilator. He has not been making any urine, the nurse told me, and urine was growing gram-negatives, and he remains with T-max of 99.4 was rectal at 4:00 today since I am dictating it now. PHYSICAL EXAMINATION: VITAL SIGNS: His temperature in the whole day is noted and it was 95/39 blood pressure, respiratory rate was 29, pulse ox 88, and saturation 97. He remained sedated. HEENT: Head is atraumatic. NECK: Supple. LUNGS: Clear. No crackles or rales heard. HEART: S1 and S2. Regular. ABDOMEN: Distended, prominent. No guarding, no rigidity present. Had bowel sounds. EXTREMITIES: Remains with trace edema. LABORATORY DATA: Labs shows, white count is 15 today, it has increased; hemoglobin 9.2, hematocrit 29.6, platelet count is 325. His neutrophils is 79, bands are 4. His creatinine has jumped to 4.3. Urine culture still show some gram-negative rods, ID and sensitivity of which is pending since he remains on the ventilator. He had effusions that was reported on yesterday's CAT scan. Chest x-ray today reveals interval worsening of pulmonary congestion since the previous exam, so it seems like he is in failure. He is status post code and respiratory failure with Streptococcus pneumonia, CHF, renal failure, suggest he may need dialysis. Renal is following and since urine still shows gram-negative rods, I will change it to meropenem to better cover if it is ESBL and we will give him 500 q. 12 for now as he has acute renal insufficiency and is anuric. We will follow. Allan Lawrence MD
[2017-08-15] MEDS: Propofol 10 mg/ml 1,000 MG/100 ML VIAL IV PRN ×3 (00:48→15:29)
[2017-08-15] MEDS: (Novolog) Insulin Aspart, Recombinant 100 u/ml 10 ml vial SC SCH ×5 (06:04→18:18)
[2017-08-15 06:10] LABS: BASO % 0.3 % (0.0-2.0); EOS # 0.3 K/uL (0.0-0.7); EOS % 1.8 % (0.0-4.0); LYMPH # 1.5 K/uL (1.0-4.3); LYMPH % 10.6 % (20.0-40.0); MEAN CELL VOLUME 73.9 fL (80.0-94.0); MEAN CORPUSCULAR HEMOGLOBIN 22.5 pg (27.0-31.0); MEAN CORPUSCULAR HGB CONC 30.4 g/dL (33.0-37.0); MEAN PLATELET VOLUME 9.5 fL (7.2-11.7); MONO # 0.8 K/uL (0.0-0.8); MONO % 5.7 % (0.0-10.0); NRBC % 0.1 % (0.0-2.0); RED CELL DISTRIBUTION WIDTH 21.8 % (11.5-14.5); WHITE BLOOD COUNT 13.9 K/uL (4.8-10.8)
[2017-08-15 06:17] LABS: ABG ALLEN TEST POS; ABG MECHANICAL RATE 14; ARTERIAL BLOOD GAS MODE PRVC; ARTERIAL BLOOD HGB O2 SAT 94.7 % (95.0-98.0); ATERIAL BLOOD GAS PEEP 16; CARBOXYHEMOGLOBIN 2.1 % (0.5-1.5); DRAW SITE R RAD; HHB 2.2 % (0.0-5.0); METHEMOGLOBIN 0.9 % (0.0-3.0)
[2017-08-15 06:22] LABS: POTASSIUM 3.6 mmol/L (3.6-5.2)
[2017-08-15 06:24] LABS: BILIRUBIN,TOTAL 0.5 mg/dL (0.2-1.3); CALCIUM 8.4 mg/dl (8.6-10.4); TOTAL PROTEIN 5.9 g/dL (6.3-8.3)
[2017-08-15] MEDS: Ipratropium 0.02% Inhal Soln (0.5 mg/2.5 ml) UD IH PRN ×2 (08:05→08:07)
[2017-08-15] MEDS: Docusate-Senna 50 mg-8.6 mg Tab PO SCH ×2 (09:00→18:08)
[2017-08-15] MEDS: Meropenem 500 MG in Sodium Chloride 0.9% 100 ML IVPB SCH ×2 (09:00→22:20)
[2017-08-15] MEDS: Metoprolol Succinate 50 mg XL Tab PO SCH (09:00)
[2017-08-15] MEDS: Ferric Sodium Gluconat Complex 62.5 mg/5 ml Vial IVPB SCH (09:02)
--- NOTE | 2017-08-15 09:25 | CP.PCM.PN ---
Subjective - Date & Time of Evaluation Date of Evaluation: 08/15/17 Time of Evaluation: 09:10 - Subjective Subjective: Medical Attending Note: Patient seen, examined this morning. Patient is sedated, intubated, on vent. Unable to review ROS secondary to clinical state. Objective - Vital Signs/Intake and Output Vital Signs (last 24 hours): Temp Pulse Resp BP Pulse Ox 97.5 F L 60 15 120/52 L 100 08/15/17 08:00 08/15/17 08:00 08/15/17 08:00 08/15/17 07:58 08/15/17 08:00 Intake and Output: 08/15/17 08/15/17 06:59 18:59 Intake Total 1006.3 230.4 Output Total 395 60 Balance 611.3 170.4 - Medications Medications: Current Medications Acetaminophen (Tylenol 650mg/20.3ml Solution Ud) 650 mg PO Q6 PRN PRN Reason: Temperature Last Admin: 08/13/17 10:45 Dose: 650 mg Aspirin (Aspirin Chewable) 81 mg PO DAILY [facility] Last Admin: 08/15/17 09:00 Dose: 81 mg Clopidogrel Bisulfate (Plavix) 75 mg PO DAILY [facility] Last Admin: 08/15/17 09:00 Dose: 75 mg Famotidine (Pepcid) 20 mg PO DAILY [facility] Last Admin: 08/15/17 09:00 Dose: 20 mg Ferric Sodium Gluconate Complex (Ferrlecit) 125 mg IVPB DAILY [facility] Stop: 08/16/17 10:01 Last Admin: 08/15/17 09:02 Dose: 125 mg Furosemide (Lasix) 60 mg IVP Q12 [facility] Last Admin: 08/14/17 22:57 Dose: 60 mg Propofol (Diprivan) 1,000 mg in 100 mls @ 2.844 mls/hr IV .Q24H PRN; Protocol; 5 MCG/KG/MIN PRN Reason: TITRATE PER MD ORDER Last Admin: 08/15/17 07:49 Dose: 20 mcg/kg/min, 11.376 mls/hr Meropenem 500 mg/ Sodium (Chloride) 100 mls @ 100 mls/hr IVPB Q12 [facility] Last Admin: 08/15/17 09:00 Dose: 100 mls/hr Heparin Sodium/Sodium Chloride (Heparin 95179 Units/250ml 1/2 Normal Saline) 25 ,000 units in 250 mls @ 15.168 mls/hr IV .[id number] PRN; Protocol; 16 UNITS/KG/HR PRN Reason: PROTOCOL Insulin Aspart (Novolog) 0 unit SC Q6H LUIS FERNANDO PRN Reason: Protocol Last Admin: 08/15/17 06:04 Dose: 6 unit Insulin Glargine (Lantus) 10 unit SC [facility] Last Admin: 08/14/17 21:42 Dose: 10 u Ipratropium Toney (Atrovent) 0.5 mg IH RQ6 PRN PRN Reason: Shortness of Breath Last Admin: 08/15/17 08:07 Dose: 0.5 mg Lactobacillus Acidophilus (Bacid Acidophilus) 1 cap PO BID [facility] Last Admin: 08/14/17 17:06 Dose: 1 cap Lorazepam (Ativan) 1 mg IVP Q2H PRN PRN Reason: Agitation Last Admin: 08/12/17 15:20 Dose: 1 mg Metoprolol Succinate (Toprol Xl) 50 mg PO DAILY [facility] Last Admin: 08/15/17 09:00 Dose: 50 mg Midazolam HCl (Versed Inj) 2 mg IVP Q4H PRN PRN Reason: Anxiety Rosuvastatin Calcium (Crestor) 10 mg PO HS [facility] Last Admin: 08/14/17 21:42 Dose: 10 mg Senna/Docusate Sodium (Senokot S 50 Mg-8.6 Mg) 1 tab PO BID [facility] Last Admin: 08/15/17 09:00 Dose: 1 tab - Labs Labs: 08/15/17 06:00 08/15/17 06:00 PT 13.0 SECONDS (9.7-12.2) H 08/09/17 23:23 INR 1.2 08/09/17 23:23 APTT 26 SECONDS (21-34) D 08/15/17 06:00 - Constitutional Appears: Chronically Ill - Head Exam Head Exam: NORMAL INSPECTION - Eye Exam Eye Exam: absent: EOMI, Nystagmus, Scleral icterus Pupil Exam: absent: Fixed, Irregular, Unequal - Respiratory Exam Respiratory Exam: Decreased Breath Sounds, Rales. absent: Respiratory Distress , Stridor Additional comments: intubated on vent; vent sounds - Cardiovascular Exam Cardiovascular Exam: REGULAR RHYTHM, +S1, +S2 - GI/Abdominal Exam GI & Abdominal Exam: Distended, Soft, Normal Bowel Sounds. absent: Firm, Guarding, Rigid, Tenderness, Rebound Additional comments: obese habitus - Extremities Exam Extremities Exam: Normal Capillary Refill, Pedal Edema. absent: Tenderness Additional comments: Prevalon boots b/l - Neurological Exam Additional comments: sedated - Skin Skin Exam: Dry, Normal Color, Warm Assessment and Plan - Assessment and Plan (Free Text) Assessment: (1) Acute Respiratory Failure ARDS Cardiac Arrest Pulmonary Edema NONSTEMI Assessment and Plan: * Code Blue on 08/10: asystole, cardiopulmonary resuscitative measures initiated , requiring 3 epis, bicarbonate, ROSC achieved and intubated and brought to the ICU for further management * 08/10: Central line placed by ICU; placed on tridil drip; heparin drip c/w * 08/11: Patient placed on Lasix IV. On heparin drip. No plans for cardiac cath at time time. Chest Xray (08/11/17): NG tube extending into the stomach. Endotracheal tube extending into the mild thoracic trachea. Left sided pacemaker. multiple overlying external wires and tubing, Moderate severe venous congestion with prominent confluent airspace opacities in the mid to lower lung zones with associated small to moderate bilateral pleural effusions. scattered nodular densities in both lungs. Cardiomegaly. Degenerative changes in the spine and shoulders. * 08/12: Chest xray (08/12/17): right basilar opacity. Small right pleural effusion. Lines and tubes unchanged.-->C/w Lasix. Discussed with Dr. Mena (pulm) , recommended for CT Chest w/o contrast for possible ARDS. increased peep 10 * 08/13: pending chest /abdomen xray for this morning; self-extubated and reintubated overnight; off tridil drip secondary to hypotension post intubation ; on heparin drip * CT Chest/Abdomen/Pelvis (08/13): moderate to large bilateral pleural effusions largeer on thr right associated with atelectasis at lower lobes. Nonspecific ground-glass opacities in the upper lobe new may be due to pulmonary vascular congestion. moderately cardiomegaly. No evidence of bowel obstruction. Moderately to markedly enlarged prostate. nonobstructing calculus at mid to lower pole left kidney. Gallstone without evidence of cholecystitis. Scattered diverticulosis without evidence of diverticulitis * 08/14: CT Chest-->loculated pleural effusion--> ICU recommend for IR Pigtail given high risk of pneumothorax (3) Chest pain Assessment and Plan: * Cardiology (Dr. Cortés) on board-->help appreciated * All trops WNL; Troponin positive in light of CPR * EKG x2 = Sinus tachycardia notes with possible left atrial enlargement; no apparent T segment elevations in contiguous leads * Heparin drip restarted * Patient's cardiac catherization cancelled secondary to rise in creatinine (2.3 ) on 08/09/17. * Patient has hx of abnormal stress test. Discussed with cardiology and nephrology given change in Cr on 08/09. * Echocardiogram (08/08/17): left ventricle systolic function is severely impaired. EF: 25-30%; global hypokinesis of left ventricle mild aortic regurgitation. Mitral regurgitation is moderate. Moderate-severe pulmonary hypertesnion * hx of ACID * on Heparin drip * Aspirin 81mg PO daily * Plavix 75mg PO daily * Lasix 60mg IV Q 12hours * Crestor 10mg POqHS * Metoprolol Succinate 50mg PO daily * Procardia 30mg PO Q 8H * Lasix 60mg IV Q16 * Off Arb secondary to ARF * TSH: 1.16; T4: 1.53 (4) Acute Systolic CHF exacerbation Assessment and Plan: * Transferred to the ICU on 08/10 following cardiac arrest and intubation. * Echocardiogram (08/08/17): left ventrcile systolic function is severely impaired. EF: 25-30%; global hypokinesis of left ventricle mild aortic regurgitation. Mitral regurgitation is moderate. Moderate-severe pulmonary hypertension * Height of bed at 45 degrees, Strict ins and outs, monitor daily weights * Start Lasix 60mg IV Q 12hours * Aspirin 81mg PO daily * Plavix 75mg PO daily * Lasix 60mg IV Q 12hours * Crestor 10mg POqHS * Metoprolol Succinate 50mg PO daily * Procardia 30mg PO Q 8H * Off Arb secondary to ARF Status: Acute (5) Pneumonia Assessment and Plan: * Pulmonary (Dr. Mena) on board-->help appreciated * Infectious Disease (Dr. Lawrence)-->help appreciated * Rapid A strep, Influenza A and B studies, Urine Legionella, Mycoplasma studies = Negative * Florastor 250mg PO bid * +Strep Pneumoniae in the urine * 08/12: Will repeat urine studies and exchange out the jaquez * 08/13: Off Rocephin; start Zosyn 2.25 IV Q 8 hours; f/u urine studies * 08/15: Started on Meropenem 500mg IV Q 8 hours (active since 08/14/17) Status: Acute (6) CAD (coronary artery disease) Assessment and Plan: * Hx of cardiac stent in the past * Heparin Drip * Cardiac cath on hold given events on 08/10 Status: Acute (7) HTN (hypertension) Assessment and Plan: * Metoprolol, Procardia and d/c Cozaar. (Hold parameters in place) following code blue * off Tridrip 08/12 * Cont to monitor Status: Chronic (8) CKD (chronic kidney disease) Assessment and Plan: * Dr. Miranda (nephrology) consulted on the case * Hx of CKD * GFR 45 which appears to be around baseline * Stopped ARB given rise in CR * Off IV fluids given pulmonary edema * Start Lasix 60mg IV Q 12hours * Monitor in and output * 08/14: Per nursing, urine output is decreasing, discussed with ICU, recommend STE[employer], discussed with nephrology who will address. Will need to follow-up with family regarding dialysis Status: Acute (9) Diabetes mellitus Assessment and Plan: * Accuchecks Q6H * A1c 8.4 * Start Lantus 10 units subqHS * Novolog insuling sliding sub6H Status: Chronic (10) HLD (hyperlipidemia) Assessment and Plan: * On Crestor 10 mg Po HS * Dietary counseling enforced Status: Chronic (11) Constipation Assessment and Plan: * Having bowel movements per nursing notes (08/14/17) * Colace 100mg PO TID * 08/12: Will given ducolax suppository X1 * 08/13: has not had bowel movement; ordered for abdominal/chest xray in light of abdominal distension * CT Chest/Abdomen/Pelvis (08/13): moderate to large bilateral pleural effusions largeer on thr right associated with atelectasis at lower lobes. Nonspecific ground-glass opacities in the upper lobe new may be due to pulmonary vascular congestion. moderately cardiomegaly. No evidence of bowel obstruction. Moderately to markedly enlarged prostate. nonobstructing calculus at mid to lower pole left kidney. Gallstone without evidence of cholecystitis. Scattered diverticulosis without evidence of diverticulitis * 08/14: Patient is not obstructed per review CT scan; will need to encourage bowel movement Status: Chronic (12) Anemia Assessment and Plan: * Heme-oncology (Dr. Giles bender) on board-->help appreciated * Likely iron deficiency anemia based on prior admissions * Ferritin 27.4, Iron 22, TIBC 322, % Saturation 7 * Ferric Sodium Gluconate 125mg IVPB daily (active 08/08-08/16) * Monitor Hgb/Hct Status: Chronic (13) History of DVT (deep vein thrombosis) Assessment and Plan: * Patient was previously on Eliquis for a prior history of DVT. * Repeat dopplers are negative for DVT * On Heparin Drip Status: Acute (14) Abnormal UA * Infectious disease (Dr. Lawrence) on board-->help appreciated * Exchange jaquez out and repeat urine cultures--->unclear if jaquez was exchanged out * Meropenem 500mg IV Q 12hours (active since 08/14/17) to cover for UTI per ID (15) Confusion; Alzheimer's Dementia Assessment and Plan: * Per daughter, patient has been getting bouts of confusion over the past year but appears at baseline. Patient has not seen formal neurology as outpatient per daughter. Per , prior to event, noted Alzheimers' disease dx one year ago * CT head w/o contrast (08/10/17):acute os subacute lacune infarct is not excluded in the left basal ganglia inferiorly with definitive chronic lacune identified in the right basal ganglia superiorly. No acute or subacute lobar brain infarction is appreciable by standard CT criteria. Mild age-related neuro degenerative changes are identifed. No acute intracranial hemorrhage or mass is identified throughout * 08/11: Patient gets agitated and will fight to pull the intubation tube out per nursing. Was placed on sedation and Ativan PRN * 08/12: patient is responsive to questions, able to move all extremities, off sedation. Patient is on PRN Versed and Ativan PRN. Will respond to yes and no questions * 08/13: Back on sedation since reintubation; patient is moving all extremities * 08/14: Is on sedation (14) Prophylactic measure Assessment and Plan: * pepcid 20mg PO daily * On Heparin Drip * Cardiac cath cancelled on 08/09/17 secondary to acute rise in Cr * Transferred to ICU s/p code blue and respiratory failure on 08/10 Status: Acute Attending/Attestation - Attestation I have personally seen and examined this patient.: Yes I have fully participated in the care of the patient.: Yes I have reviewed all pertinent clinical information, including history, physical exam and plan: Yes ICU is currently doing rounds at this time. Note: patient is on aspirin, plavix, heparin drip--->prior to considering IR pigtail for loculated pleural effusion Urine output is decreasing, consideration for dialysis; discussed with nephrology last night-->will discuss with patient/family this morning Patient started on Meropenem in light of abnormal US and +Strep pneumoniae.
[2017-08-15] MEDS: Lactobacillus Acidophilus 500 MU Cap PO SCH ×2 (09:51→18:08)
--- NOTE | 2017-08-15 10:25 | RAD ---
Chest x-ray single frontal view History: Intubated. Comparison: 08/14/2017 Findings: Lines and tubes stable position. Left-sided pacemaker. Cardiomegaly. Prominent diffuse increased interstitial lung markings throughout both lungs suggestive for moderate to severe venous congestion and/or infiltrates. Patchy left basilar airspace opacity with trace left pleural effusion. Cardiomegaly. Degenerative changes in the spine and shoulders. Impression: Lines and tubes stable position. Left-sided pacemaker. Cardiomegaly. Prominent diffuse increased interstitial lung markings throughout both lungs suggestive for moderate to severe venous congestion and/or infiltrates. Patchy left basilar airspace opacity with trace left pleural effusion. Cardiomegaly.
--- NOTE | 2017-08-15 11:11 | CP.CCUPN ---
CCU Subjective - Physician Review Subjective (Free Text): Patient seen and examined at bedside. Patient self extubated on 08/12 but was re -intubated the same day. Patient is currently on vent, ROS unobtainable at this time. 08/15/17 17:03 CCU Objective - Vital Signs / Intake & Output Vital Signs (Last 4 hours): Vital Signs Temp Pulse Resp BP Pulse Ox 08/15/17 10:14 121/55 L 08/15/17 10:00 81 24 100 08/15/17 09:58 73 23 121/55 L 100 08/15/17 08:58 74 25 H 118/51 L 100 08/15/17 08:00 97.5 F L 60 15 100 08/15/17 07:58 78 24 120/52 L 100 Intake and Output (Last 8hrs): Intake & Output 08/14/17 08/15/17 08/15/17 22:59 06:59 14:59 Intake Total 703.1 476.4 297.5 Output Total 120 330 90 Balance 583.1 146.4 207.5 Weight 234 lb 5 oz Intake: IV 250 100 Intake, IV Amount 263.1 186.4 77.5 Right Distal Port 100 Right Medial Port Femoral 83.3 95.2 43.3 Right Proximal Port 79.8 91.2 34.2 Tube Feeding 140 290 120 Other 50 Output: Urine 120 330 90 Urethral (Jaquez) 120 330 90 Other: # Bowel Movements 0 - Physical Exam Head: Positive for: Atraumatic, Normocephalic Pupils: Positive for: Sluggish Conjunctiva: Positive for: Normal Pharnyx: Positive for: Normal Respiratory/Chest: Positive for: Other (on vent) Cardiovascular: Positive for: Regular Rate and Rhythm, Normal S1, S2 Abdomen: Positive for: Distention, Normal Bowel Sounds Psychiatric: Positive for: Other (sedated) - Medications Active Medications: Active Medications Generic Name Dose Route Start Last Admin Trade Name Freq PRN Reason Stop Dose Admin Acetaminophen 650 mg 08/11/17 17:40 08/13/17 10:45 Tylenol 650mg/20.3ml Solution Ud PO 650 mg Q6 PRN Administration Temperature Aspirin 81 mg 08/14/17 11:15 08/15/17 09:00 Aspirin Chewable PO 81 mg DAILY LUIS FERNANDO Administration Clopidogrel Bisulfate 75 mg 08/12/17 11:00 09/18/17 09:00 Plavix PO 75 mg DAILY LUIS FERNANDO Administration Famotidine 20 mg 08/09/17 10:00 08/15/17 09:00 Pepcid PO 20 mg DAILY LUIS FERNANDO Administration Ferric Sodium Gluconate Complex 125 mg 08/08/17 10:00 08/15/17 09:02 Ferrlecit IVPB 08/16/17 10:01 125 mg DAILY LUIS FERNANDO Administration Furosemide 60 mg 08/11/17 10:30 08/15/17 10:14 Lasix IVP 60 mg Q12 LUIS FERNANDO Administration Propofol 1,000 mg in 100 mls @ 2.844 mls/hr 08/12/17 21:00 08/15/17 07:49 Diprivan IV 20 mcg/kg/min .Q24H PRN 11.376 mls/hr TITRATE PER MD ORDER Administration Protocol 5 MCG/KG/MIN Meropenem 500 mg/ Sodium 100 mls @ 100 mls/hr 08/14/17 22:00 08/15/17 09:00 Chloride IVPB 100 mls/hr Q12 LUIS FERNANDO Administration Heparin Sodium/Sodium Chloride 25,000 units in 250 mls @ 15.168 mls/hr 08:00 Heparin 77351 Units/250ml 1/2 Normal Saline IV .[id number] PRN PROTOCOL Protocol 16 UNITS/KG/HR Insulin Aspart 0 unit 08/11/17 00:00 08/15/17 06:04 Novolog SC 6 unit Q6H LUIS FERNANDO Administration Protocol Insulin Glargine 10 unit 08/14/17 22:00 08/14/17 21:42 Lantus SC 10 u HS LUIS FERNANDO Administration Ipratropium [place] 0.5 mg 08/07/17 08:47 08/15/17 08:07 Atrovent IH 0.5 mg RQ6 PRN Administration Shortness of Breath Lactobacillus Acidophilus 1 cap 08/13/17 18:00 08/15/17 09:51 Bacid Acidophilus PO 1 cap BID LUIS FERNANDO Administration Lorazepam 1 mg 08/10/17 13:52 08/12/17 15:20 Ativan IVP 1 mg Q2H PRN Administration Agitation Metoprolol Succinate 50 mg 08/07/17 13:54 08/15/17 09:00 Toprol Xl PO 50 mg DAILY LUIS FERNANDO Administration Midazolam HCl 2 mg 08/12/17 14:26 Versed Inj IVP Q4H PRN Anxiety Rosuvastatin Calcium 10 mg 08/06/17 22:00 08/14/17 21:42 Crestor PO 10 mg HS LUIS FERNANDO Administration Senna/Docusate Sodium 1 tab 08/13/17 11:30 08/15/17 09:00 Senokot S 50 Mg-8.6 Mg PO 1 tab BID LUIS FERNANDO Administration - Patient Studies Lab Studies: Microbiology Studies 08/12/17 20:15 Urine Culture - Final Urine Gram Negative Sarmad Lab Studies 08/15/17 08/15/17 08/15/17 Range/Units 06:00 06:00 06:00 WBC 13.9 H (4.8-10.8) K/uL RBC 4.06 L (4.40-5.90) Mil/uL Hgb 9.1 L (12.0-18.0) g/dL Hct 30.0 L (35.0-51.0) % MCV 73.9 L (80.0-94.0) fL MCH 22.5 L (27.0-31.0) pg MCHC 30.4 L (33.0-37.0) g/dL RDW 21.8 H (11.5-14.5) % Plt Count 339 (130-400) K/uL MPV 9.5 (7.2-11.7) fL Neut % (Auto) 81.6 H (50.0-75.0) % Lymph % (Auto) 10.6 L (20.0-40.0) % Dixon % (Auto) 5.7 (0.0-10.0) % Eos % (Auto) 1.8 (0.0-4.0) % Baso % (Auto) 0.3 (0.0-2.0) % Neut # 11.4 H (1.8-7.0) K/uL Lymph # 1.5 (1.0-4.3) K/uL Dixon # 0.8 (0.0-0.8) K/uL Eos # 0.3 (0.0-0.7) K/uL Baso # 0.0 (0.0-0.2) K/uL Platelet Estimate (NORMAL) Giant Platelets Spherocytes Tear Drop Cells Ovalocytes [place] Cells Schistocytes APTT 26 D (21-34) SECONDS Puncture Site pCO2 (35-45) mm/Hg pO2 (80-100) mm/Hg HCO3 (21-28) mmol/L ABG pH (7.35-7.45) ABG Total CO2 (22-28) mmol/L ABG O2 Saturation (95-98) % ABG Base Excess (-2.0-3.0) mmol/L ABG Hemoglobin (11.7-17.4) g/dL ABG Carboxyhemoglobin (0.5-1.5) % POC ABG HHb (Measured) (0.0-5.0) % ABG Methemoglobin (0.0-3.0) % Uriel Test A-a O2 Difference mm/Hg Respiratory Index Hgb O2 Saturation (95.0-98.0) % Vent Mode Mechanical Rate FiO2 % Tidal Volume PEEP Sodium 140 (132-148) mmol/L Potassium 3.6 (3.6-5.2) mmol/L Chloride 102 (98-107) mmol/L Carbon Dioxide 24 (22-30) mmol/L Anion Gap 17 (10-20) BUN 81 H (9-20) mg/dL Creatinine 4.7 H (0.8-1.5) MG/DL Est GFR ( Amer) 15 Est GFR (Non-Af Amer) 12 POC Glucose (mg/dL) (65-110) mg/dL Random Glucose 219 H (75-110) mg/dL Calcium 8.4 L (8.6-10.4) mg/dl Total Bilirubin 0.5 (0.2-1.3) mg/dL AST 76 H D (17-59) U/L ALT 64 (21-72) U/L Alkaline Phosphatase 110 (38-126) U/L Total Protein 5.9 L (6.3-8.3) g/dL Albumin 2.9 L (3.5-5.0) g/dL Globulin 3.0 (2.2-3.9) gm/dL Albumin/Globulin Ratio 1.0 (1.0-2.1) 08/15/17 08/15/17 08/14/17 Range/Units 05:59 05:24 23:33 WBC (4.8-10.8) K/uL RBC (4.40-5.90) Mil/uL Hgb (12.0-18.0) g/dL Hct (35.0-51.0) % MCV (80.0-94.0) fL MCH (27.0-31.0) pg MCHC (33.0-37.0) g/dL RDW (11.5-14.5) % Plt Count (130-400) K/uL MPV (7.2-11.7) fL Neut % (Auto) (50.0-75.0) % Lymph % (Auto) (20.0-40.0) % Dixon % (Auto) (0.0-10.0) % Eos % (Auto) (0.0-4.0) % Baso % (Auto) (0.0-2.0) % Neut # (1.8-7.0) K/uL Lymph # (1.0-4.3) K/uL Dixon # (0.0-0.8) K/uL Eos # (0.0-0.7) K/uL Baso # (0.0-0.2) K/uL Platelet Estimate (NORMAL) Giant Platelets Spherocytes Tear Drop Cells Ovalocytes Yakov Cells Schistocytes APTT (21-34) SECONDS Puncture Site R rad pCO2 38 (35-45) mm/Hg pO2 82 (80-100) mm/Hg HCO3 23.1 (21-28) mmol/L ABG pH 7.38 (7.35-7.45) ABG Total CO2 23.7 (22-28) mmol/L ABG O2 Saturation 97.7 (95-98) % ABG Base Excess -2.3 L (-2.0-3.0) mmol/L ABG Hemoglobin 10.7 L (11.7-17.4) g/dL ABG Carboxyhemoglobin 2.1 H (0.5-1.5) % POC ABG HHb (Measured) 2.2 (0.0-5.0) % ABG Methemoglobin 0.9 (0.0-3.0) % Uriel Test Pos A-a O2 Difference 227.0 mm/Hg Respiratory Index 2.8 Hgb O2 Saturation 94.7 L (95.0-98.0) % Vent Mode Prvc Mechanical Rate 14 FiO2 50.0 % Tidal Volume 450 PEEP 16 Sodium (132-148) mmol/L Potassium (3.6-5.2) mmol/L Chloride (98-107) mmol/L Carbon Dioxide (22-30) mmol/L Anion Gap (10-20) BUN (9-20) mg/dL Creatinine (0.8-1.5) MG/DL Est GFR ( Amer) Est GFR (Non-Af Amer) POC Glucose (mg/dL) 254 H 267 H (65-110) mg/dL Random Glucose (75-110) mg/dL Calcium (8.6-10.4) mg/dl Total Bilirubin (0.2-1.3) mg/dL AST (17-59) U/L ALT (21-72) U/L Alkaline Phosphatase (38-126) U/L Total Protein (6.3-8.3) g/dL Albumin (3.5-5.0) g/dL Globulin (2.2-3.9) gm/dL Albumin/Globulin Ratio (1.0-2.1) 08/14/17 08/14/17 08/14/17 Range/Units 17:40 11:33 06:19 WBC (4.8-10.8) K/uL RBC (4.40-5.90) Mil/uL Hgb (12.0-18.0) g/dL Hct (35.0-51.0) % MCV (80.0-94.0) fL MCH (27.0-31.0) pg MCHC (33.0-37.0) g/dL RDW (11.5-14.5) % Plt Count (130-400) K/uL MPV (7.2-11.7) fL Neut % (Auto) (50.0-75.0) % Lymph % (Auto) (20.0-40.0) % Dixon % (Auto) (0.0-10.0) % Eos % (Auto) (0.0-4.0) % Baso % (Auto) (0.0-2.0) % Neut # (1.8-7.0) K/uL Lymph # (1.0-4.3) K/uL Dixon # (0.0-0.8) K/uL Eos # (0.0-0.7) K/uL Baso # (0.0-0.2) K/uL Platelet Estimate Normal (NORMAL) Giant Platelets Present Spherocytes Slight Tear Drop Cells Slight Ovalocytes Slight Yakov Cells Slight Schistocytes Slight APTT (21-34) SECONDS Puncture Site pCO2 (35-45) mm/Hg pO2 (80-100) mm/Hg HCO3 (21-28) mmol/L ABG pH (7.35-7.45) ABG Total CO2 (22-28) mmol/L ABG O2 Saturation (95-98) % ABG Base Excess (-2.0-3.0) mmol/L ABG Hemoglobin (11.7-17.4) g/dL ABG Carboxyhemoglobin (0.5-1.5) % POC ABG HHb (Measured) (0.0-5.0) % ABG Methemoglobin (0.0-3.0) % Uriel Test A-a O2 Difference mm/Hg Respiratory Index Hgb O2 Saturation (95.0-98.0) % Vent Mode Mechanical Rate FiO2 % Tidal Volume PEEP Sodium (132-148) mmol/L Potassium (3.6-5.2) mmol/L Chloride (98-107) mmol/L Carbon Dioxide (22-30) mmol/L Anion Gap (10-20) BUN (9-20) mg/dL Creatinine (0.8-1.5) MG/DL Est GFR ( Amer) Est GFR (Non-Af Amer) POC Glucose (mg/dL) 252 H 312 H (65-110) mg/dL Random Glucose (75-110) mg/dL Calcium (8.6-10.4) mg/dl Total Bilirubin (0.2-1.3) mg/dL AST (17-59) U/L ALT (21-72) U/L Alkaline Phosphatase (38-126) U/L Total Protein (6.3-8.3) g/dL Albumin (3.5-5.0) g/dL Globulin (2.2-3.9) gm/dL Albumin/Globulin Ratio (1.0-2.1) Laboratory Results - last 24 hr 08/14/17 08/14/17 08/14/17 06:19 11:33 17:40 WBC RBC Hgb Hct MCV MCH MCHC RDW Plt Count MPV Neut % (Auto) Lymph % (Auto) Dixon % (Auto) Eos % (Auto) Baso % (Auto) Neut # Lymph # Dixon # Eos # Baso # Platelet Estimate Normal Giant Platelets Present Spherocytes Slight Tear Drop Cells Slight Ovalocytes Slight [place] Cells Slight Schistocytes Slight APTT Puncture Site pCO2 pO2 HCO3 ABG pH ABG Total CO2 ABG O2 Saturation ABG Base Excess ABG Hemoglobin ABG Carboxyhemoglobin POC ABG HHb (Measured) ABG Methemoglobin Uriel Test A-a O2 Difference Respiratory Index Hgb O2 Saturation Vent Mode Mechanical Rate FiO2 Tidal Volume PEEP Sodium Potassium Chloride Carbon Dioxide Anion Gap BUN Creatinine Est GFR ( Amer) Est GFR (Non-Af Amer) POC Glucose (mg/dL) 312 H 252 H Random Glucose Calcium Total Bilirubin AST ALT Alkaline Phosphatase Total Protein Albumin Globulin Albumin/Globulin Ratio 08/14/17 08/15/17 08/15/17 23:33 05:24 05:59 WBC RBC Hgb Hct MCV MCH MCHC RDW Plt Count MPV Neut % (Auto) Lymph % (Auto) Dixon % (Auto) Eos % (Auto) Baso % (Auto) Neut # Lymph # Dixon # Eos # Baso # Platelet Estimate Giant Platelets Spherocytes Tear Drop Cells Ovalocytes Yakov Cells Schistocytes APTT Puncture Site R rad pCO2 38 pO2 82 HCO3 23.1 ABG pH 7.38 ABG Total CO2 23.7 ABG O2 Saturation 97.7 ABG Base Excess -2.3 L ABG Hemoglobin 10.7 L ABG Carboxyhemoglobin 2.1 H POC ABG HHb (Measured) 2.2 ABG Methemoglobin 0.9 Uriel Test Pos A-a O2 Difference 227.0 Respiratory Index 2.8 Hgb O2 Saturation 94.7 L Vent Mode Prvc Mechanical Rate 14 FiO2 50.0 Tidal Volume 450 PEEP 16 Sodium Potassium Chloride Carbon Dioxide Anion Gap BUN Creatinine Est GFR ( Amer) Est GFR (Non-Af Amer) POC Glucose (mg/dL) 267 H 254 H Random Glucose Calcium Total Bilirubin AST ALT Alkaline Phosphatase Total Protein Albumin Globulin Albumin/Globulin Ratio 08/15/17 08/15/17 08/15/17 06:00 06:00 06:00 WBC 13.9 H RBC 4.06 L Hgb 9.1 L Hct 30.0 L MCV 73.9 L MCH 22.5 L MCHC 30.4 L RDW 21.8 H Plt Count 339 MPV 9.5 Neut % (Auto) 81.6 H Lymph % (Auto) 10.6 L Dixon % (Auto) 5.7 Eos % (Auto) 1.8 Baso % (Auto) 0.3 Neut # 11.4 H Lymph # 1.5 Dixon # 0.8 Eos # 0.3 Baso # 0.0 Platelet Estimate Giant Platelets Spherocytes Tear Drop Cells Ovalocytes Yakov Cells Schistocytes APTT 26 D Puncture Site pCO2 pO2 HCO3 ABG pH ABG Total CO2 ABG O2 Saturation ABG Base Excess ABG Hemoglobin ABG Carboxyhemoglobin POC ABG HHb (Measured) ABG Methemoglobin Uriel Test A-a O2 Difference Respiratory Index Hgb O2 Saturation Vent Mode Mechanical Rate FiO2 Tidal Volume PEEP Sodium 140 Potassium 3.6 Chloride 102 Carbon Dioxide 24 Anion Gap 17 BUN 81 H Creatinine 4.7 H Est GFR ( Amer) 15 Est GFR (Non-Af Amer) 12 POC Glucose (mg/dL) Random Glucose 219 H Calcium 8.4 L Total Bilirubin 0.5 AST 76 H D ALT 64 Alkaline Phosphatase 110 Total Protein 5.9 L Albumin 2.9 L Globulin 3.0 Albumin/Globulin Ratio 1.0 Fingerstick Blood Sugar Results: 105 Review of Systems - Review of Systems Systems not reviewed;Unavailable: Intubated Critical Care Progress Note - Vent Settings MODE:: PRVC TIDAL VOLUME:: 450 RESP RATE:: 18 FIO2:: 60 PEEP:: 12 - Nutrition Nutrition: Nutrition Category Date Time Status Heart Healthy Diet [DIET] Diets 08/09/17 Lunch Active Assessment/Plan - Assessment and Plan (Free Text) Assessment: 77 yo M admitted to ICU from floors, patient was to get CT scan and had respiratory distress, a code blue was called and patient was transferred to ICU and intubated. Today (08/15): Patient is currently on vent. Patient will need right TLC changed. Patient will also need a femoral access for hemodialysis, which he will be getting for the first time, due to ansacara, fluid overload and an increasing Cr. level. Still waiting on consent from family, as wants to discuss plans with family members first. Neuro: Sedated with propofol drip. Pulm: acute respiratory failure in severe ARDS. CT chest shows large right pleural effusion, consulted IR for pigtail placement (pneumothorax risk is high , so pigtail placement would be safest). Patient is showing slow improvement using lung protective strategy from [facility]DS[facility] protocol. CV: NSTEMI on heparin drip, metoprolol po qd, nifedipine po q8h. Hem: aspirin, plavix, heparin drip, holding eliquis. Renal: ALIREZA, Lasix 60mg IV q12h, becoming less effective, urine output decreasing. patient will most likely need dialysis, will discuss with [facility]. Endo: DM type 2, on insulin sliding scale for coverage GI: no recent BM's, Started Senna/Colace and enema. No obstruction seen on CT abdomen. ID: severe sepsis from pneumonia, continue Meropenem 500mg (started 08/14). DVT proph - heparin gtt GI proph - pepcid jaquez for strict I/O's during acute illness Code status - full code
[2017-08-15] MEDS: Heparin25000 units/250ml 1/2NS 25,000 UNITS/250 ML BAG IV PRN (11:28)
--- NOTE | 2017-08-15 12:06 | CP.PCM.PN ---
Subjective - Date & Time of Evaluation Date of Evaluation: 08/15/17 Time of Evaluation: 12:04 - Subjective Subjective: Remains oliguric , remains in CHF and on vent creat increased to 4.7 Advised dialysis - will not sign consent BP stable, CXR unchanged. Sedated Objective - Vital Signs/Intake and Output Vital Signs (last 24 hours): Temp Pulse Resp BP Pulse Ox 97.5 F L 74 26 H 118/51 L 100 08/15/17 08:00 08/15/17 11:00 08/15/17 11:00 08/15/17 10:58 08/15/17 11:00 Intake and Output: 08/15/17 08/15/17 06:59 18:59 Intake Total 1006.3 431.7 Output Total 395 155 Balance 611.3 276.7 - Medications Medications: Current Medications Acetaminophen (Tylenol 650mg/20.3ml Solution Ud) 650 mg PO Q6 PRN PRN Reason: Temperature Last Admin: 08/13/17 10:45 Dose: 650 mg Aspirin (Aspirin Chewable) 81 mg PO DAILY [facility] Last Admin: 08/15/17 09:00 Dose: 81 mg Clopidogrel Bisulfate (Plavix) 75 mg PO DAILY [facility] Last Admin: 08/15/17 09:00 Dose: 75 mg Famotidine (Pepcid) 20 mg PO DAILY [facility] Last Admin: 08/15/17 09:00 Dose: 20 mg Ferric Sodium Gluconate Complex (Ferrlecit) 125 mg IVPB DAILY [facility] Stop: 08/16/17 10:01 Last Admin: 08/15/17 09:02 Dose: 125 mg Furosemide (Lasix) 60 mg IVP Q12 [facility] Last Admin: 08/15/17 10:14 Dose: 60 mg Propofol (Diprivan) 1,000 mg in 100 mls @ 2.844 mls/hr IV .Q24H PRN; Protocol; 5 MCG/KG/MIN PRN Reason: TITRATE PER MD ORDER Last Admin: 08/15/17 07:49 Dose: 20 mcg/kg/min, 11.376 mls/hr Meropenem 500 mg/ Sodium (Chloride) 100 mls @ 100 mls/hr IVPB Q12 [facility] Last Admin: 08/15/17 09:00 Dose: 100 mls/hr Heparin Sodium/Sodium Chloride (Heparin 34676 Units/250ml 1/2 Normal Saline) 25 ,000 units in 250 mls @ 15.168 mls/hr IV .[id number] PRN; Protocol; 16 UNITS/KG/HR PRN Reason: PROTOCOL Last Admin: 08/15/17 11:28 Dose: 16 units/kg/hr, 15.168 mls/hr Insulin Aspart (Novolog) 0 unit SC Q6H [facility] PRN Reason: Protocol Last Admin: 08/15/17 06:04 Dose: 6 unit Insulin Glargine (Lantus) [address] [facility] Last Admin: 08/14/17 21:42 Dose: 10 u Ipratropium [place] (Atrovent) 0.5 mg IH RQ6 PRN PRN Reason: Shortness of Breath Last Admin: 08/15/17 08:07 Dose: 0.5 mg Lactobacillus Acidophilus (Bacid Acidophilus) 1 cap PO BID [facility] Last Admin: 08/15/17 09:51 Dose: 1 cap Lorazepam (Ativan) 1 mg IVP Q2H PRN PRN Reason: Agitation Last Admin: 08/12/17 15:20 Dose: 1 mg Metoprolol Succinate (Toprol Xl) 50 mg PO DAILY [facility] Last Admin: 08/15/17 09:00 Dose: 50 mg Midazolam HCl (Versed Inj) 2 mg IVP Q4H PRN PRN Reason: Anxiety Rosuvastatin Calcium (Crestor) [address] [facility] Last Admin: 08/14/17 21:42 Dose: 10 mg Senna/Docusate Sodium (Senokot S 50 Mg-8.6 Mg) 1 tab PO BID [facility] Last Admin: 08/15/17 09:00 Dose: 1 tab - Labs Labs: 08/15/17 06:00 08/15/17 06:00 PT 13.0 SECONDS (9.7-12.2) H 08/09/17 23:23 INR 1.2 08/09/17 23:23 APTT 26 SECONDS (21-34) D 08/15/17 06:00 - Constitutional Appears: In Acute Distress, Chronically Ill - Head Exam Head Exam: ATRAUMATIC, NORMAL INSPECTION - Eye Exam Eye Exam: EOMI, Normal appearance - Neck Exam Neck Exam: Normal Inspection. absent: Tenderness - Respiratory Exam Respiratory Exam: Rales, Respiratory Distress - Cardiovascular Exam Cardiovascular Exam: REGULAR RHYTHM, +S1 - GI/Abdominal Exam GI & Abdominal Exam: Soft. absent: Tenderness - Extremities Exam Extremities Exam: Normal Inspection. absent: Tenderness - Neurological Exam Neurological Exam: Altered, Motor Sensory Deficit - Skin Skin Exam: Dry, Warm Assessment and Plan (1) Acute on chronic renal failure Status: Acute (2) CAD (coronary artery disease) Status: Acute (3) CHF exacerbation Status: Chronic (4) Type 2 diabetes mellitus with diabetic nephropathy Status: Acute (5) CKD stage 4 due to type 2 diabetes mellitus Status: Acute (6) Cardiorenal disease Status: Acute - Assessment and Plan (Free Text) Plan: Await consent from family then will initiate dialysis if they agree Continue IV lasix for now
--- NOTE | 2017-08-15 14:17 | CP.PCM.PN ---
Subjective - Date & Time of Evaluation Date of Evaluation: 08/15/17 Time of Evaluation: 09:00 - Subjective Subjective: Patient seen and examined. Remains intubated on ventilatory support FiO2 reduced to 50% with PEEP of 16 Sedated on Diprivan Remains oliguric Seen by nephrology and recommended dialysis Tolerating feeding Objective - Vital Signs/Intake and Output Vital Signs (last 24 hours): Temp Pulse Resp BP Pulse Ox 97.5 F L 79 28 H 118/45 L 95 08/15/17 08:00 08/15/17 12:00 08/15/17 12:00 08/15/17 11:58 08/15/17 12:00 Intake and Output: 08/15/17 08/15/17 06:59 18:59 Intake Total 1006.3 498.8 Output Total 395 185 Balance 611.3 313.8 - Medications Medications: Current Medications Acetaminophen (Tylenol 650mg/20.3ml Solution Ud) 650 mg PO Q6 PRN PRN Reason: Temperature Last Admin: 08/13/17 10:45 Dose: 650 mg Aspirin (Aspirin Chewable) 81 mg PO DAILY [facility] Last Admin: 08/15/17 09:00 Dose: 81 mg Clopidogrel Bisulfate (Plavix) 75 mg PO DAILY [facility] Last Admin: 08/15/17 09:00 Dose: 75 mg Famotidine (Pepcid) 20 mg PO DAILY [facility] Last Admin: 08/15/17 09:00 Dose: 20 mg Ferric Sodium Gluconate Complex (Ferrlecit) 125 mg IVPB DAILY [facility] Stop: 08/16/17 10:01 Last Admin: 08/15/17 09:02 Dose: 125 mg Furosemide (Lasix) 60 mg IVP Q12 [facility] Last Admin: 08/15/17 10:14 Dose: 60 mg Propofol (Diprivan) 1,000 mg in 100 mls @ 2.844 mls/hr IV .Q24H PRN; Protocol; 5 MCG/KG/MIN PRN Reason: TITRATE PER MD ORDER Last Admin: 08/15/17 07:49 Dose: 20 mcg/kg/min, 11.376 mls/hr Meropenem 500 mg/ Sodium (Chloride) 100 mls @ 100 mls/hr IVPB Q12 [facility] Last Admin: 08/15/17 09:00 Dose: 100 mls/hr Heparin Sodium/Sodium Chloride (Heparin 67882 Units/250ml 1/2 Normal Saline) 25 ,000 units in 250 mls @ 15.168 mls/hr IV .[id number] PRN; Protocol; 16 UNITS/KG/HR PRN Reason: PROTOCOL Last Admin: 08/15/17 11:28 Dose: 16 units/kg/hr, 15.168 mls/hr Insulin Aspart (Novolog) 0 unit SC Q6H [facility] PRN Reason: Protocol Last Admin: 08/15/17 06:04 Dose: 6 unit Insulin Glargine (Lantus) 10 unit SC [facility] Last Admin: 08/14/17 21:42 Dose: 10 u Ipratropium [place] (Atrovent) 0.5 mg IH RQ6 PRN PRN Reason: Shortness of Breath Last Admin: 08/15/17 08:07 Dose: 0.5 mg Lactobacillus Acidophilus (Bacid Acidophilus) 1 cap PO BID [facility] Last Admin: 08/15/17 09:51 Dose: 1 cap Lorazepam (Ativan) 1 mg IVP Q2H PRN PRN Reason: Agitation Last Admin: 08/12/17 15:20 Dose: 1 mg Metoprolol Succinate (Toprol Xl) 50 mg PO DAILY [facility] Last Admin: 08/15/17 09:00 Dose: 50 mg Midazolam HCl (Versed Inj) 2 mg IVP Q4H PRN PRN Reason: Anxiety Rosuvastatin Calcium (Crestor) 10 mg PO [facility] Last Admin: 08/14/17 21:42 Dose: 10 mg Senna/Docusate Sodium (Senokot S 50 Mg-8.6 Mg) 1 tab PO BID [facility] Last Admin: 08/15/17 09:00 Dose: 1 tab - Labs Labs: 08/15/17 06:00 08/15/17 06:00 PT 13.0 SECONDS (9.7-12.2) H 08/09/17 23:23 INR 1.2 08/09/17 23:23 APTT 26 SECONDS (21-34) D 08/15/17 06:00 - Head Exam Head Exam: ATRAUMATIC, NORMOCEPHALIC - ENT Exam ENT Exam: Mucous Membranes Moist - Neck Exam Neck Exam: Normal Inspection - Respiratory Exam Respiratory Exam: Rales - Cardiovascular Exam Cardiovascular Exam: REGULAR RHYTHM - GI/Abdominal Exam GI & Abdominal Exam: Soft, Normal Bowel Sounds - Extremities Exam Extremities Exam: Pedal Edema - Neurological Exam Neurological Exam: Altered Assessment and Plan (1) Cardiac arrest Assessment & Plan: continue ventilatory support Reduce PEEP to 12 for now Seen by nephrology and advised hemodialysis, awaiting family decision Continue feeding, antibiotics Status: Acute (2) Pneumonia Status: Acute (3) History of DVT (deep vein thrombosis) Status: Acute (4) CKD (chronic kidney disease) Status: Acute (5) Acute on chronic renal failure Status: Acute (6) CHF (congestive heart failure) Status: Acute
--- NOTE | 2017-08-15 20:58 | CP.PCM.PN ---
Subjective - Date & Time of Evaluation Date of Evaluation: 08/15/17 Time of Evaluation: 05:00 - Subjective Subjective: dictated Objective - Vital Signs/Intake and Output Vital Signs (last 24 hours): Temp Pulse Resp BP Pulse Ox 99.3 F 87 25 H 111/50 L 95 08/15/17 19:35 08/15/17 19:47 08/15/17 19:47 08/15/17 20:20 08/15/17 19:35 Intake and Output: 08/15/17 08/16/17 18:59 06:59 Intake Total 989.2 79.7 Output Total 410 30 Balance 579.2 49.7 - Medications Medications: Current Medications Acetaminophen (Tylenol 650mg/20.3ml Solution Ud) 650 mg PO Q6 PRN PRN Reason: Temperature Last Admin: 08/13/17 10:45 Dose: 650 mg Aspirin (Aspirin Chewable) 81 mg PO DAILY [facility] Last Admin: 08/15/17 09:00 Dose: 81 mg Clopidogrel Bisulfate (Plavix) 75 mg PO DAILY [facility] Last Admin: 08/15/17 09:00 Dose: 75 mg Famotidine (Pepcid) 20 mg PO DAILY [facility] Last Admin: 08/15/17 09:00 Dose: 20 mg Ferric Sodium Gluconate Complex (Ferrlecit) 125 mg IVPB DAILY [facility] Stop: 08/16/17 10:01 Last Admin: 08/15/17 09:02 Dose: 125 mg Furosemide (Lasix) 60 mg IVP Q12 [facility] Last Admin: 08/15/17 10:14 Dose: 60 mg Propofol (Diprivan) 1,000 mg in 100 mls @ 2.844 mls/hr IV .Q24H PRN; Protocol; 5 MCG/KG/MIN PRN Reason: TITRATE PER MD ORDER Last Admin: 08/15/17 15:29 Dose: 20 mcg/kg/min, 11.376 mls/hr Meropenem 500 mg/ Sodium (Chloride) 100 mls @ 100 mls/hr IVPB Q12 [facility] Last Admin: 08/15/17 09:00 Dose: 100 mls/hr Heparin Sodium/Sodium Chloride (Heparin 11340 Units/250ml 1/2 Normal Saline) 25 ,000 units in 250 mls @ 15.168 mls/hr IV .[id number] PRN; Protocol; 16 UNITS/KG/HR PRN Reason: PROTOCOL Last Titration: 08/15/17 19:43 Dose: 13 units/kg/hr, 12.324 mls/hr Insulin Aspart (Novolog) 0 unit SC Q6H [facility] PRN Reason: Protocol Last Admin: 08/15/17 18:18 Dose: 6 unit Insulin Glargine (Lantus) 10 unit SC HS [facility] Last Admin: 08/14/17 21:42 Dose: 10 u Ipratropium [place] (Atrovent) 0.5 mg IH RQ6 PRN PRN Reason: Shortness of Breath Last Admin: 08/15/17 08:07 Dose: 0.5 mg Lactobacillus Acidophilus (Bacid Acidophilus) 1 cap PO BID [facility] Last Admin: 08/15/17 18:08 Dose: 1 cap Lorazepam (Ativan) 1 mg IVP Q2H PRN PRN Reason: Agitation Last Admin: 08/12/17 15:20 Dose: 1 mg Metoprolol Succinate (Toprol Xl) 50 mg PO DAILY [facility] Last Admin: 08/15/17 09:00 Dose: 50 mg Midazolam HCl (Versed Inj) 2 mg IVP Q4H PRN PRN Reason: Anxiety Rosuvastatin Calcium (Crestor) 10 mg PO HS [facility] Last Admin: 08/14/17 21:42 Dose: 10 mg Senna/Docusate Sodium (Senokot S 50 Mg-8.6 Mg) 1 tab PO BID [facility] Last Admin: 08/15/17 18:08 Dose: 1 tab - Labs Labs: 08/15/17 06:00 08/15/17 06:00 PT 13.0 SECONDS (9.7-12.2) H 08/09/17 23:23 INR 1.2 08/09/17 23:23 APTT 152 SECONDS (21-34) H* D 08/15/17 14:00
--- NOTE | 2017-08-15 21:41 | CP.PCM.PN ---
Subjective - Date & Time of Evaluation Date of Evaluation: 08/15/17 Time of Evaluation: 10:05 - Subjective Subjective: Patient remains intubated Oliguric Increasing BUN/Creatinine Physical Examination - Head Exam Head Exam: ATRAUMATIC, NORMAL INSPECTION - Eye Exam Eye Exam: PERRLA - ENT Exam ENT Exam: Mucous Membranes Moist - Neck Exam Neck Exam: JVD + - Respiratory Exam Respiratory Exam: Clear to Ausculation Bilateral, NORMAL BREATHING PATTERN - Cardiovascular Exam Cardiovascular Exam: +S1, +S2 - GI/Abdominal Exam GI & Abdominal Exam: Soft, Normal Bowel Sounds - Extremities Exam Extremities Exam: Intubated - Neurological Exam Neurological Exam: Intubated and sedated - Skin Skin Exam: Warm Objective - Vital Signs/Intake and Output Vital Signs (last 24 hours): Temp Pulse Resp BP Pulse Ox 99.3 F 87 25 H 103/49 L 95 08/15/17 19:35 08/15/17 19:47 08/15/17 19:47 08/15/17 21:35 08/15/17 19:35 Intake and Output: 08/15/17 08/16/17 18:59 06:59 Intake Total 989.2 79.7 Output Total 410 30 Balance 579.2 49.7 - Medications Medications: Current Medications Acetaminophen (Tylenol 650mg/20.3ml Solution Ud) 650 mg PO Q6 PRN PRN Reason: Temperature Last Admin: 08/13/17 10:45 Dose: 650 mg Aspirin (Aspirin Chewable) 81 mg PO DAILY [facility] Last Admin: 08/15/17 09:00 Dose: 81 mg Clopidogrel Bisulfate (Plavix) 75 mg PO DAILY [facility] Last Admin: 08/15/17 09:00 Dose: 75 mg Famotidine (Pepcid) 20 mg PO DAILY [facility] Last Admin: 08/15/17 09:00 Dose: 20 mg Ferric Sodium Gluconate Complex (Ferrlecit) 125 mg IVPB DAILY [facility] Stop: 08/16/17 10:01 Last Admin: 08/15/17 09:02 Dose: 125 mg Furosemide (Lasix) 60 mg IVP Q12 [facility] Last Admin: 08/15/17 10:14 Dose: 60 mg Propofol (Diprivan) 1,000 mg in 100 mls @ 2.844 mls/hr IV .Q24H PRN; Protocol; 5 MCG/KG/MIN PRN Reason: TITRATE PER MD ORDER Last Admin: 08/15/17 15:29 Dose: 20 mcg/kg/min, 11.376 mls/hr Meropenem 500 mg/ Sodium (Chloride) 100 mls @ 100 mls/hr IVPB Q12 [facility] Last Admin: 08/15/17 09:00 Dose: 100 mls/hr Heparin Sodium/Sodium Chloride (Heparin 76163 Units/250ml 1/2 Normal Saline) 25 ,000 units in 250 mls @ 15.168 mls/hr IV .[id number] PRN; Protocol; 16 UNITS/KG/HR PRN Reason: PROTOCOL Last Titration: 08/15/17 19:43 Dose: 13 units/kg/hr, 12.324 mls/hr Insulin Aspart (Novolog) 0 unit SC Q6H [facility] PRN Reason: Protocol Last Admin: 08/15/17 18:18 Dose: 6 unit Insulin Glargine (Lantus) 10 unit SC [facility] Last Admin: 08/14/17 21:42 Dose: 10 u Ipratropium [place] (Atrovent) 0.5 mg IH RQ6 PRN PRN Reason: Shortness of Breath Last Admin: 08/15/17 08:07 Dose: 0.5 mg Lactobacillus Acidophilus (Bacid Acidophilus) 1 cap PO BID [facility] Last Admin: 08/15/17 18:08 Dose: 1 cap Lorazepam (Ativan) 1 mg IVP Q2H PRN PRN Reason: Agitation Last Admin: 08/12/17 15:20 Dose: 1 mg Metoprolol Succinate (Toprol Xl) 50 mg PO DAILY [facility] Last Admin: 08/15/17 09:00 Dose: 50 mg Midazolam HCl (Versed Inj) 2 mg IVP Q4H PRN PRN Reason: Anxiety Rosuvastatin Calcium (Crestor) 10 mg PO HS [facility] Last Admin: 08/14/17 21:42 Dose: 10 mg Senna/Docusate Sodium (Senokot S 50 Mg-8.6 Mg) 1 tab PO BID [facility] Last Admin: 08/15/17 18:08 Dose: 1 tab - Labs Labs: 08/15/17 06:00 08/15/17 06:00 PT 13.0 SECONDS (9.7-12.2) H 08/09/17 23:23 INR 1.2 08/09/17 23:23 APTT 152 SECONDS (21-34) H* D 08/15/17 14:00 Assessment and Plan - Assessment and Plan (Free Text) Assessment: (1) S/P Code Blue Intubated and sedated Likely secondary to Pulmonary Edema (2) CHF exacerbation Assessment and Plan: Continue IV Lasix Check ECHO S/P AICD (3) Pneumonia Assessment and Plan: Afebrile, mild leukocytosis on Admission. Hx of productive cough for almost 2 weeks. CXR findings of left basilar consolidation and left pleural effusion Rocephin and Azithromycin given in the ED Will begin Rocephin and Azithromycin Q24 Start Florastor as well F/U Rapid strep, Influenza A and B studies, Urine Legionella, Mycoplasma studies F/U consult to Dr. Mena (Pulm) Status: Acute (4) CAD (coronary artery disease) Assessment and Plan: Hx of PCI (5) HTN (hypertension) Assessment and Plan: On Metoprolol, Procardia and Cozaar. (Hold parameters in place) Cont to monitor Status: Chronic (6) CKD (chronic kidney disease) Assessment and Plan: Hx of CKD GFR 45 which appears to be aroudn baseline F/U Dr. Miranda recommendations Status: Acute (7) Diabetes mellitus Assessment and Plan: Accuchecks ISS- High Dose F/U A1c Hold home medications at this time Status: Chronic (8) HLD (hyperlipidemia) Assessment and Plan: F/U lipid panel On Crestor 10 mg Po HS Dietary counseling enforced Status: Chronic (9) Constipation Assessment and Plan: Colace 100 mg PO TID until 18:00PM on 08/07/17. If patient has not had a stool, will add on Dulcolax. Status: Chronic (10) Anemia Assessment and Plan: Likely iron deficiency anemia based on prior admissions Iron Studies. F/U Ferritin, Iron, TIBC, % Saturation Monitor Hgb/Hct Status: Chronic (11) History of DVT (deep vein thrombosis) Assessment and Plan: Patient was previously on Eliquis for a prior history of DVT. At this time, will not initiate. Will rather start heparin drip in anticipation for cath procedure. Status: Acute (12) Prophylactic measure Assessment and Plan: Protonix 40 mg PO daily On Heparin Drip in anticipation for cardiac cath- Will f/u with Dr. Cortés as to when Status: Acute
[2017-08-15] MEDS: (Lantus) Insulin Glargine, Recombinant SC SCH (22:23)
[2017-08-16] MEDS: Propofol 10 mg/ml 1,000 MG/100 ML VIAL IV PRN ×5 (00:09→23:29)
[2017-08-16] MEDS: (Novolog) Insulin Aspart, Recombinant 100 u/ml 10 ml vial SC SCH ×5 (00:12→22:30)
--- NOTE | 2017-08-16 00:56 | PN ---
DATE: SUBJECTIVE: The patient remains intubated on the ventilator. They were going to put on hemodialysis catheter. PHYSICAL EXAMINATION: GENERAL: He is sedated. VITAL SIGNS: T-max is 99.7, pulse is 87, blood pressure is 112/51, respirations are on the vent 25, and saturation remains 93%. HEAD: Atraumatic. NECK: Supple. LUNGS: Clear. HEART: S1 and S2 is regular. ABDOMEN: Soft and prominent. No guarding and no rigidity present. EXTREMITIES: Have edema present. The patient is anuric, is not making any urine. He needs dialysis. White count is 13.9 today, hemoglobin 9.1, hematocrit 30.8, and platelet count is 339, so his white count is slightly better than yesterday, but x-ray had shown CHF. Sodium is 148, potassium is 3.6, and creatinine has increased to 4.7. He has pneumococcal pneumonia and he also had immunofixation done, which shows increased kappa and lambda chain, so he may have multiple myeloma or monoclonal gammopathy. At this time, he is on meropenem and remains status post cardiac attack, pneumonia, has a history of DVT, has acute on chronic renal failure, and has congestive heart failure and we are awaiting for dialysis after he gets the catheter and renal attending is following. Allan Lawrence MD
[2017-08-16 06:30] LABS: BASO # 0.1 K/uL (0.0-0.2); BASO % 0.7 % (0.0-2.0); EOS # 0.4 K/uL (0.0-0.7); EOS % 2.4 % (0.0-4.0); HEMATOCRIT 29.7 % (35.0-51.0); LYMPH # 1.3 K/uL (1.0-4.3); LYMPH % 8.4 % (20.0-40.0); MEAN CELL VOLUME 73.8 fL (80.0-94.0); MEAN CORPUSCULAR HEMOGLOBIN 23.6 pg (27.0-31.0); MEAN PLATELET VOLUME 9.6 fL (7.2-11.7); MONO # 0.9 K/uL (0.0-0.8); MONO % 6.3 % (0.0-10.0); NRBC % 0.1 % (0.0-2.0); PLATELET COUNT 352 K/uL (130-400); RED CELL DISTRIBUTION WIDTH 22.1 % (11.5-14.5); WHITE BLOOD COUNT 14.9 K/uL (4.8-10.8)
[2017-08-16 06:43] LABS: POTASSIUM 3.7 mmol/L (3.6-5.2)
[2017-08-16 06:45] LABS: ALB/GLOB RATIO 0.9 (1.0-2.1); BILIRUBIN,TOTAL 0.5 mg/dL (0.2-1.3); TOTAL PROTEIN 5.7 g/dL (6.3-8.3)
[2017-08-16 06:46] LABS: MAGNESIUM 2.3 mg/dL (1.6-2.3); PHOSPHOROUS 4.9 mg/dL (2.5-4.5)
[2017-08-16 08:37] LABS: EOSINOPHIL 1 % (0-4); MYELOCYTE 1 % (0-0); NEUTROPHIL 83 % (50-75); REACTIVE LYMPHOCYTES 1 % (0-0); TOTAL CELLS COUNTED 100
--- NOTE | 2017-08-16 08:40 | CP.PCM.PN ---
Subjective - Date & Time of Evaluation Date of Evaluation: 08/16/17 Time of Evaluation: 08:30 - Subjective Subjective: Hospitalist Progress Note Patient was seen and examined at 8:30 AM 08/16/17 ICU Bed #5. 77 year old male with extensive medical history (please see Assessment and Plans below) was admitted on 08/06/17 for evaluation of SOB and Chest Pain. He was planned for Cardiac Catheterization on 08/09/17 due to his elevated Cr. Patient then had Acute Respiratory Failure and had to be intubated and placed on vent. Please see details below. ROS are not possible as patient is currently intubated/on ventilator. Exam: - Head Exam Head Exam: NORMAL INSPECTION - Eye Exam Eye Exam: could not evaluate EOM due to patient's current status Pupil Exam: round, equal, and reactive to light - Respiratory Exam Respiratory Exam: Decreased Breath Sounds however course breath sounds throughout Additional comments: intubated on vent - Cardiovascular Exam Cardiovascular Exam: REGULAR RHYTHM, +S1, +S2 - GI/Abdominal Exam GI & Abdominal Exam: Distended, Soft, Normal Bowel Sounds, could not palpate liver and spleen. absent: Firm, Guarding, Rigid, Tenderness, Rebound Additional comments: obese habitus - Extremities Exam Extremities Exam: Normal Capillary Refill, Pedal Edema. absent: Tenderness Additional comments: Prevalon boots b/l - Neurological Exam Additional comments: sedated - Skin Skin Exam: Dry, Normal Color, Warm Assessment and Plan - Assessment and Plan (Free Text) Assessment: (1) Acute Respiratory Failure ARDS Cardiac Arrest Pulmonary Edema NONSTEMI Assessment and Plan: * Code Blue on 08/10: asystole, cardiopulmonary resuscitative measures initiated , requiring 3 epis, bicarbonate, ROSC achieved and intubated and brought to the ICU for further management * 08/10: Central line placed by ICU; placed on tridil drip; heparin drip c/w * 08/11: Patient placed on Lasix IV. On heparin drip. No plans for cardiac cath at time time. Chest Xray (08/11/17): NG tube extending into the stomach. Endotracheal tube extending into the mild thoracic trachea. Left sided pacemaker. multiple overlying external wires and tubing, Moderate severe venous congestion with prominent confluent airspace opacities in the mid to lower lung zones with associated small to moderate bilateral pleural effusions. scattered nodular densities in both lungs. Cardiomegaly. Degenerative changes in the spine and shoulders. * 08/12: Chest xray (08/12/17): right basilar opacity. Small right pleural effusion. Lines and tubes unchanged.-->C/w Lasix. Discussed with Dr. Mena (pulm) , recommended for CT Chest w/o contrast for possible ARDS. increased peep 10 * 08/13: pending chest /abdomen xray for this morning; self-extubated and reintubated overnight; off tridil drip secondary to hypotension post intubation ; on heparin drip * CT Chest/Abdomen/Pelvis (08/13): moderate to large bilateral pleural effusions largeer on thr right associated with atelectasis at lower lobes. Nonspecific ground-glass opacities in the upper lobe new may be due to pulmonary vascular congestion. moderately cardiomegaly. No evidence of bowel obstruction. Moderately to markedly enlarged prostate. nonobstructing calculus at mid to lower pole left kidney. Gallstone without evidence of cholecystitis. Scattered diverticulosis without evidence of diverticulitis * 08/14: CT Chest-->loculated pleural effusion--> ICU recommend for IR Pigtail given high risk of pneumothorax (3) Chest pain Assessment and Plan: * Cardiology (Dr. Cortés) on board-->help appreciated * All trops WNL; Troponin positive in light of CPR * EKG x2 = Sinus tachycardia notes with possible left atrial enlargement; no apparent T segment elevations in contiguous leads * Heparin drip restarted * Patient's cardiac catherization cancelled secondary to rise in creatinine (2.3 ) on 08/09/17. * Patient has hx of abnormal stress test. Discussed with cardiology and nephrology given change in Cr on 08/09. * Echocardiogram (08/08/17): left ventricle systolic function is severely impaired. EF: 25-30%; global hypokinesis of left ventricle mild aortic regurgitation. Mitral regurgitation is moderate. Moderate-severe pulmonary hypertesnion * Hx of ACID * on Heparin drip * Aspirin 81mg PO daily * Plavix 75mg PO daily * Lasix 60mg IV Q 12hours * Crestor 10mg POqHS * Metoprolol Succinate 50mg PO daily * Off Arb secondary to ARF * TSH: 1.16; T4: 1.53 (4) Acute Systolic CHF exacerbation Assessment and Plan: * Transferred to the ICU on 08/10 following cardiac arrest and intubation. * Echocardiogram (08/08/17): left ventrcile systolic function is severely impaired. EF: 25-30%; global hypokinesis of left ventricle mild aortic regurgitation. Mitral regurgitation is moderate. Moderate-severe pulmonary hypertension * Height of bed at 45 degrees, Strict ins and outs, monitor daily weights * Lasix 60mg IV Q 12hours * Aspirin 81mg PO daily * Plavix 75mg PO daily * Crestor 10mg POqHS * Metoprolol Succinate 50mg PO daily * Off Arb secondary to ARF Status: Acute (5) Pneumonia Assessment and Plan: * Pulmonary (Dr. Mena) on board-->help appreciated * Infectious Disease (Dr. Lawrence)-->help appreciated * Rapid A strep, Influenza A and B studies, Urine Legionella, Mycoplasma studies = Negative * Florastor 250mg PO bid * +Strep Pneumoniae in the urine * 08/12: Will repeat urine studies and exchange out the jaquez * 08/13: Off Rocephin; start Zosyn 2.25 IV Q 8 hours; f/u urine studies * 08/15: Started on Meropenem 500mg IV Q 8 hours (active since 08/14/17) Status: Acute (6) CAD (coronary artery disease) Assessment and Plan: * Hx of cardiac stent in the past * Heparin Drip * Cardiac cath on hold given events on 08/10 Status: Acute (7) HTN (hypertension) Assessment and Plan: * Metoprolol XL 50 mg PO 1x/day Status: Chronic (8) CKD (chronic kidney disease) Assessment and Plan: * Dr. Miranda (nephrology) consulted on the case * Hx of CKD * GFR 45 which appears to be around baseline * Stopped ARB given rise in CR * Off IV fluids given pulmonary edema * Lasix 60mg IV Q 12hours * Monitor in and output: has not been producing significant amount of urine and HD was recommended by Nephrology * Femoral HD Catheter placed on 08/15/17 and started HD on 08/15/17 Status: Acute (9) Diabetes mellitus Assessment and Plan: * Accuchecks Q6H * A1c 8.4 * Start Lantus 10 units subqHS * Novolog insuling sliding sub6H Status: Chronic (10) HLD (hyperlipidemia) Assessment and Plan: * On Crestor 10 mg Po HS Status: Chronic (11) Constipation Assessment and Plan: * Having bowel movements per nursing notes (08/14/17) * Colace 100mg PO TID * 08/12: Will given ducolax suppository X1 * 08/13: has not had bowel movement; ordered for abdominal/chest xray in light of abdominal distension * CT Chest/Abdomen/Pelvis (08/13): moderate to large bilateral pleural effusions largeer on thr right associated with atelectasis at lower lobes. Nonspecific ground-glass opacities in the upper lobe new may be due to pulmonary vascular congestion. moderately cardiomegaly. No evidence of bowel obstruction. Moderately to markedly enlarged prostate. nonobstructing calculus at mid to lower pole left kidney. Gallstone without evidence of cholecystitis. Scattered diverticulosis without evidence of diverticulitis * 08/14: Patient is not obstructed per review CT scan; will need to encourage bowel movement Status: Chronic (12) Anemia Assessment and Plan: * Heme-oncology (Dr. Giles bender) on board-->help appreciated * Likely iron deficiency anemia based on prior admissions * Ferritin 27.4, Iron 22, TIBC 322, % Saturation 7 * Ferric Sodium Gluconate 125mg IVPB daily (active 08/08-08/16) * Monitor Hgb/Hct Status: Chronic (13) History of DVT (deep vein thrombosis) Assessment and Plan: * Patient was previously on Eliquis for a prior history of DVT. * Repeat dopplers are negative for DVT * On Heparin Drip Status: Acute (14) UTI * Infectious disease (Dr. Lawrence) on board-->help appreciated * Exchange jaquez out and repeat urine cultures * Urine Culture 08/12/17 showed Gram Negative Rods: follow up identification and sensitivities * Meropenem 500mg IV Q 12hours (active since 08/14/17) to cover for UTI per ID (15) Confusion; Alzheimer's Dementia Assessment and Plan: * Per daughter, patient has been getting bouts of confusion over the past year but appears at baseline. Patient has not seen formal neurology as outpatient per daughter. Per , prior to event, noted Alzheimers' disease dx one year ago * CT head w/o contrast (08/10/17):acute os subacute lacune infarct is not excluded in the left basal ganglia inferiorly with definitive chronic lacune identified in the right basal ganglia superiorly. No acute or subacute lobar brain infarction is appreciable by standard CT criteria. Mild age-related neuro degenerative changes are identifed. No acute intracranial hemorrhage or mass is identified throughout * 08/11: Patient gets agitated and will fight to pull the intubation tube out per nursing. Was placed on sedation and Ativan PRN * 08/12: patient is responsive to questions, able to move all extremities, off sedation. Patient is on PRN Versed and Ativan PRN. Will respond to yes and no questions * 08/13: Back on sedation since reintubation; patient is moving all extremities * 08/14: Is on sedation (14) Prophylactic measure Assessment and Plan: * Pepcid 20mg PO daily * On Heparin Drip * Glucerna 1.5 at 40 ml/hour via NGT * Bacid 1 cap NGT 2x/day * Atrovent Q6H PRN * Tylenol 650 mg PO Q6H PRN Temperature Cullen Barth D.O. Objective - Vital Signs/Intake and Output Vital Signs (last 24 hours): Temp Pulse Resp BP Pulse Ox 99.1 F 84 19 107/46 L 91 L 08/16/17 08:19 08/16/17 07:00 08/16/17 07:00 08/16/17 04:48 08/16/17 07:00 Intake and Output: 08/16/17 08/16/17 06:59 18:59 Intake Total 572.8 29.3 Output Total 205 Balance 367.8 29.3 - Medications Medications: Current Medications Acetaminophen (Tylenol 650mg/20.3ml Solution Ud) 650 mg PO Q6 PRN PRN Reason: Temperature Last Admin: 08/13/17 10:45 Dose: 650 mg Aspirin (Aspirin Chewable) 81 mg PO DAILY [facility] Last Admin: 08/15/17 09:00 Dose: 81 mg Clopidogrel Bisulfate (Plavix) 75 mg PO DAILY [facility] Last Admin: 08/15/17 09:00 Dose: 75 mg Famotidine (Pepcid) 20 mg PO DAILY [facility] Last Admin: 08/15/17 09:00 Dose: 20 mg Ferric Sodium Gluconate Complex (Ferrlecit) 125 mg IVPB DAILY [facility] Stop: 08/16/17 10:01 Last Admin: 08/15/17 09:02 Dose: 125 mg Furosemide (Lasix) 60 mg IVP Q12 [facility] Last Admin: 08/15/17 22:21 Dose: 60 mg Propofol (Diprivan) 1,000 mg in 100 mls @ 2.844 mls/hr IV .Q24H PRN; Protocol; 5 MCG/KG/MIN PRN Reason: TITRATE PER MD ORDER Last Titration: 08/16/17 06:56 Dose: 29.88 mcg/kg/min, 16.996 mls/hr Meropenem 500 mg/ Sodium (Chloride) 100 mls @ 100 mls/hr IVPB Q12 [facility] Last Admin: 08/15/17 22:20 Dose: 100 mls/hr Heparin Sodium/Sodium Chloride (Heparin 30109 Units/250ml 1/2 Normal Saline) 25 ,000 units in 250 mls @ 15.168 mls/hr IV .[id number] PRN; Protocol; 16 UNITS/KG/HR PRN Reason: PROTOCOL Last Titration: 08/15/17 19:43 Dose: 13 units/kg/hr, 12.324 mls/hr Insulin Aspart (Novolog) 0 unit SC Q6H [facility]NAND[facility] PRN Reason: Protocol Last Admin: 08/16/17 06:44 Dose: 2 unit Insulin Glargine (Lantus) 10 unit SC [facility] Last Admin: 08/15/17 22:23 Dose: 10 u Ipratropium [place] (Atrovent) 0.5 mg IH RQ6 PRN PRN Reason: Shortness of Breath Last Admin: 08/15/17 08:07 Dose: 0.5 mg Lactobacillus Acidophilus (Bacid Acidophilus) 1 cap PO BID [facility] Last Admin: 08/15/17 18:08 Dose: 1 cap Lorazepam (Ativan) 1 mg IVP Q2H PRN PRN Reason: Agitation Last Admin: 08/12/17 15:20 Dose: 1 mg Metoprolol Succinate (Toprol Xl) 50 mg PO DAILY [facility] Last Admin: 08/15/17 09:00 Dose: 50 mg Midazolam HCl (Versed Inj) 2 mg IVP Q4H PRN PRN Reason: Anxiety Rosuvastatin Calcium (Crestor) 10 mg PO HS [facility] Last Admin: 08/15/17 22:20 Dose: 10 mg Senna/Docusate Sodium (Senokot S 50 Mg-8.6 Mg) 1 tab PO BID [facility] Last Admin: 08/15/17 18:08 Dose: 1 tab - Labs Labs: 08/16/17 06:19 08/16/17 06:19 PT 13.0 SECONDS (9.7-12.2) H 08/09/17 23:23 INR 1.2 08/09/17 23:23 APTT 45 SECONDS (21-34) H D 08/16/17 07:48
--- NOTE | 2017-08-16 08:40 | CP.CCUPN ---
<Anton Moore - Last Filed: 08/16/17 15:58> CCU Subjective - Physician Review Subjective (Free Text): Patient seen and examined at bedside. Yesterday evening patient had first HD treatment via right femoral HD catheter. Patient is intubated, ROS unobtainable. CCU Objective - Vital Signs / Intake & Output Vital Signs (Last 4 hours): Vital Signs Temp Pulse Resp BP Pulse Ox 08/16/17 08:19 99.1 F 08/16/17 07:00 84 19 91 L 08/16/17 06:00 92 H 28 H 90 L 08/16/17 04:48 107/46 L Intake and Output (Last 8hrs): Intake & Output 08/15/17 08/16/17 08/16/17 22:59 06:59 14:59 Intake Total 468.7 422.0 29.3 Output Total 245 115 Balance 223.7 307.0 29.3 Weight 235 lb 0.204 oz 222 lb 10.67 oz Intake: IV 116 210 Intake, IV Amount 152.7 212.0 29.3 Right Medial Port Femoral 61.5 98.4 12.3 Right Proximal Port 91.2 113.6 17 Tube Feeding 200 Output: Urine 245 115 Urethral (Jaquez) 245 115 Other: # Voids Urethral (Jaquez) 10 - Physical Exam Head: Positive for: Atraumatic, Normocephalic Pupils: Positive for: Sluggish Conjunctiva: Positive for: Normal Pharnyx: Positive for: Normal Respiratory/Chest: Positive for: Decreased Breath Sounds, Other (on vent) Cardiovascular: Positive for: Regular Rate and Rhythm, Normal S1, S2 Abdomen: Positive for: Distention, Normal Bowel Sounds, Other (obese habitus) Skin: Positive for: Warm, Dry Psychiatric: Positive for: Other (sedated) - Medications Active Medications: Active Medications Generic Name Dose Route Start Last Admin Trade Name Freq PRN Reason Stop Dose Admin Acetaminophen 650 mg 08/11/17 17:40 08/13/17 10:45 Tylenol 650mg/20.3ml Solution Ud PO 650 mg Q6 PRN Administration Temperature Aspirin 81 mg 08/14/17 11:15 08/15/17 09:00 Aspirin Chewable PO 81 mg DAILY LUIS FERNANDO Administration Clopidogrel Bisulfate 75 mg 08/12/17 11:00 08/15/17 09:00 Plavix PO 75 mg DAILY LUIS FERNANDO Administration Famotidine 20 mg 08/09/17 10:00 08/15/17 09:00 Pepcid PO 20 mg DAILY LUIS FERNANDO Administration Ferric Sodium Gluconate Complex 125 mg 08/08/17 10:00 08/15/17 09:02 Ferrlecit IVPB 08/16/17 10:01 125 mg DAILY LUIS FERNANDO Administration Furosemide 60 mg 08/11/17 10:30 08/15/17 22:21 Lasix IVP 60 mg Q12 LUIS FERNANDO Administration Propofol 1,000 mg in 100 mls @ 2.844 mls/hr 08/12/17 21:00 08/16/17 06:56 Diprivan IV 29.88 mcg/kg/min .Q24H PRN 16.996 mls/hr TITRATE PER MD ORDER Titration Protocol 5 MCG/KG/MIN Meropenem 500 mg/ Sodium 100 mls @ 100 mls/hr 08/14/17 22:00 08/15/17 22:20 Chloride IVPB 100 mls/hr Q12 LUIS FERNANDO Administration Heparin Sodium/Sodium Chloride 25,000 units in 250 mls @ 15.168 mls/hr 08:00 08/15/17 19:43 Heparin 89692 Units/250ml 1/2 Normal Saline IV 13 units/kg/hr .[id number] PRN 12.324 mls/hr PROTOCOL Titration Protocol 16 UNITS/KG/HR Insulin Aspart 0 unit 08/11/17 00:00 08/16/17 06:44 Novolog SC 2 unit Q6H LUIS FERNANDO Administration Protocol Insulin Glargine 10 unit 08/14/17 22:00 08/15/17 22:23 Lantus SC 10 u HS LUIS FERNANDO Administration Ipratropium Williams 0.5 mg 08/07/17 08:47 08/15/17 08:07 Atrovent IH 0.5 mg RQ6 PRN Administration Shortness of Breath Lactobacillus Acidophilus 1 cap 08/13/17 18:00 08/15/17 18:08 Bacid Acidophilus PO 1 cap BID LUIS FERNANDO Administration Lorazepam 1 mg 08/10/17 13:52 08/12/17 15:20 Ativan IVP 1 mg Q2H PRN Administration Agitation Metoprolol Succinate 50 mg 08/07/17 13:54 08/15/17 09:00 Toprol Xl PO 50 mg DAILY LUIS FERNANDO Administration Midazolam HCl 2 mg 08/12/17 14:26 Versed Inj IVP Q4H PRN Anxiety Rosuvastatin Calcium 10 mg 08/06/17 22:00 08/15/17 22:20 Crestor PO 10 mg HS LUIS FERNANDO Administration Senna/Docusate Sodium 1 tab 08/13/17 11:30 08/15/17 18:08 Senokot S 50 Mg-8.6 Mg PO 1 tab BID LUIS FERNANDO Administration - Patient Studies Lab Studies: Microbiology Studies 08/14/17 17:36 Gram Stain - Preliminary Trachasp Lab Studies 08/16/17 08/16/17 08/16/17 Range/Units 07:48 06:19 06:19 WBC 14.9 H (4.8-10.8) K/uL RBC 4.02 L (4.40-5.90) Mil/uL Hgb 9.5 L (12.0-18.0) g/dL Hct 29.7 L (35.0-51.0) % MCV 73.8 L (80.0-94.0) fL MCH 23.6 L (27.0-31.0) pg MCHC 32.0 L (33.0-37.0) g/dL RDW 22.1 H (11.5-14.5) % Plt Count 352 (130-400) K/uL MPV 9.6 (7.2-11.7) fL Neut % (Auto) 82.2 H (50.0-75.0) % Lymph % (Auto) 8.4 L (20.0-40.0) % Antelope % (Auto) 6.3 (0.0-10.0) % Eos % (Auto) 2.4 (0.0-4.0) % Baso % (Auto) 0.7 (0.0-2.0) % Neut # 12.3 H (1.8-7.0) K/uL Lymph # 1.3 (1.0-4.3) K/uL Antelope # 0.9 H (0.0-0.8) K/uL Eos # 0.4 (0.0-0.7) K/uL Baso # 0.1 (0.0-0.2) K/uL APTT 45 H D (21-34) SECONDS Sodium 138 (132-148) mmol/L Potassium 3.7 (3.6-5.2) mmol/L Chloride 100 (98-107) mmol/L Carbon Dioxide 27 (22-30) mmol/L Anion Gap 14 (10-20) BUN 54 H (9-20) mg/dL Creatinine 3.2 H (0.8-1.5) MG/DL Est GFR ( Amer) 23 Est GFR (Non-Af Amer) 19 POC Glucose (mg/dL) (65-110) mg/dL Random Glucose 206 H (75-110) mg/dL Calcium 8.0 L (8.6-10.4) mg/dl Phosphorus 4.9 H (2.5-4.5) mg/dL Magnesium 2.3 (1.6-2.3) mg/dL Total Bilirubin 0.5 (0.2-1.3) mg/dL AST 135 H D (17-59) U/L ALT 71 (21-72) U/L Alkaline Phosphatase 133 H D (38-126) U/L Total Protein 5.7 L (6.3-8.3) g/dL Albumin 2.8 L (3.5-5.0) g/dL Globulin 3.0 (2.2-3.9) gm/dL Albumin/Globulin Ratio 0.9 L (1.0-2.1) Hep Bs Antigen (NEGATIVE) Hep Bs Antibody (NEGATIVE) Hep B Core IgM Ab (NEGATIVE) Hepatitis C Antibody (NEGATIVE) 08/16/17 08/16/17 08/15/17 Range/Units 06:09 00:10 23:55 WBC (4.8-10.8) K/uL RBC (4.40-5.90) Mil/uL Hgb (12.0-18.0) g/dL Hct (35.0-51.0) % MCV (80.0-94.0) fL MCH (27.0-31.0) pg MCHC (33.0-37.0) g/dL RDW (11.5-14.5) % Plt Count (130-400) K/uL MPV (7.2-11.7) fL Neut % (Auto) (50.0-75.0) % Lymph % (Auto) (20.0-40.0) % Antelope % (Auto) (0.0-10.0) % Eos % (Auto) (0.0-4.0) % Baso % (Auto) (0.0-2.0) % Neut # (1.8-7.0) K/uL Lymph # (1.0-4.3) K/uL Antelope # (0.0-0.8) K/uL Eos # (0.0-0.7) K/uL Baso # (0.0-0.2) K/uL APTT 56 H D (21-34) SECONDS Sodium (132-148) mmol/L Potassium (3.6-5.2) mmol/L Chloride (98-107) mmol/L Carbon Dioxide (22-30) mmol/L Anion Gap (10-20) BUN (9-20) mg/dL Creatinine (0.8-1.5) MG/DL Est GFR ( Amer) Est GFR (Non-Af Amer) POC Glucose (mg/dL) 198 H 214 H (65-110) mg/dL Random Glucose (75-110) mg/dL Calcium (8.6-10.4) mg/dl Phosphorus (2.5-4.5) mg/dL Magnesium (1.6-2.3) mg/dL Total Bilirubin (0.2-1.3) mg/dL AST (17-59) U/L ALT (21-72) U/L Alkaline Phosphatase (38-126) U/L Total Protein (6.3-8.3) g/dL Albumin (3.5-5.0) g/dL Globulin (2.2-3.9) gm/dL Albumin/Globulin Ratio (1.0-2.1) Hep Bs Antigen (NEGATIVE) Hep Bs Antibody (NEGATIVE) Hep B Core IgM Ab (NEGATIVE) Hepatitis C Antibody (NEGATIVE) 08/15/17 08/15/17 08/15/17 Range/Units 20:28 20:28 17:45 WBC (4.8-10.8) K/uL RBC (4.40-5.90) Mil/uL Hgb (12.0-18.0) g/dL Hct (35.0-51.0) % MCV (80.0-94.0) fL MCH (27.0-31.0) pg MCHC (33.0-37.0) g/dL RDW (11.5-14.5) % Plt Count (130-400) K/uL MPV (7.2-11.7) fL Neut % (Auto) (50.0-75.0) % Lymph % (Auto) (20.0-40.0) % Antelope % (Auto) (0.0-10.0) % Eos % (Auto) (0.0-4.0) % Baso % (Auto) (0.0-2.0) % Neut # (1.8-7.0) K/uL Lymph # (1.0-4.3) K/uL Antelope # (0.0-0.8) K/uL Eos # (0.0-0.7) K/uL Baso # (0.0-0.2) K/uL APTT (21-34) SECONDS Sodium (132-148) mmol/L Potassium (3.6-5.2) mmol/L Chloride (98-107) mmol/L Carbon Dioxide (22-30) mmol/L Anion Gap (10-20) BUN (9-20) mg/dL Creatinine (0.8-1.5) MG/DL Est GFR ( Amer) Est GFR (Non-Af Amer) POC Glucose (mg/dL) 271 H (65-110) mg/dL Random Glucose (75-110) mg/dL Calcium (8.6-10.4) mg/dl Phosphorus 6.0 H (2.5-4.5) mg/dL Magnesium (1.6-2.3) mg/dL Total Bilirubin (0.2-1.3) mg/dL AST (17-59) U/L ALT (21-72) U/L Alkaline Phosphatase (38-126) U/L Total Protein (6.3-8.3) g/dL Albumin (3.5-5.0) g/dL Globulin (2.2-3.9) gm/dL Albumin/Globulin Ratio (1.0-2.1) Hep Bs Antigen Negative (NEGATIVE) Hep Bs Antibody Positive (NEGATIVE) Hep B Core IgM Ab Negative (NEGATIVE) Hepatitis C Antibody Negative (NEGATIVE) 08/15/17 Range/Units 14:00 WBC (4.8-10.8) K/uL RBC (4.40-5.90) Mil/uL Hgb (12.0-18.0) g/dL Hct (35.0-51.0) % MCV (80.0-94.0) fL MCH (27.0-31.0) pg MCHC (33.0-37.0) g/dL RDW (11.5-14.5) % Plt Count (130-400) K/uL MPV (7.2-11.7) fL Neut % (Auto) (50.0-75.0) % Lymph % (Auto) (20.0-40.0) % Antelope % (Auto) (0.0-10.0) % Eos % (Auto) (0.0-4.0) % Baso % (Auto) (0.0-2.0) % Neut # (1.8-7.0) K/uL Lymph # (1.0-4.3) K/uL Antelope # (0.0-0.8) K/uL Eos # (0.0-0.7) K/uL Baso # (0.0-0.2) K/uL APTT 152 H* D (21-34) SECONDS Sodium (132-148) mmol/L Potassium (3.6-5.2) mmol/L Chloride (98-107) mmol/L Carbon Dioxide (22-30) mmol/L Anion Gap (10-20) BUN (9-20) mg/dL Creatinine (0.8-1.5) MG/DL Est GFR ( Amer) Est GFR (Non-Af Amer) POC Glucose (mg/dL) (65-110) mg/dL Random Glucose (75-110) mg/dL Calcium (8.6-10.4) mg/dl Phosphorus (2.5-4.5) mg/dL Magnesium (1.6-2.3) mg/dL Total Bilirubin (0.2-1.3) mg/dL AST (17-59) U/L ALT (21-72) U/L Alkaline Phosphatase (38-126) U/L Total Protein (6.3-8.3) g/dL Albumin (3.5-5.0) g/dL Globulin (2.2-3.9) gm/dL Albumin/Globulin Ratio (1.0-2.1) Hep Bs Antigen (NEGATIVE) Hep Bs Antibody (NEGATIVE) Hep B Core IgM Ab (NEGATIVE) Hepatitis C Antibody (NEGATIVE) Laboratory Results - last 24 hr 08/15/17 08/15/17 08/15/17 14:00 17:45 20:28 WBC RBC Hgb Hct MCV MCH MCHC RDW Plt Count MPV Neut % (Auto) Lymph % (Auto) Antelope % (Auto) Eos % (Auto) Baso % (Auto) Neut # Lymph # Antelope # Eos # Baso # APTT 152 H* D Sodium Potassium Chloride Carbon Dioxide Anion Gap BUN Creatinine Est GFR ( Amer) Est GFR (Non-Af Amer) POC Glucose (mg/dL) 271 H Random Glucose Calcium Phosphorus 6.0 H Magnesium Total Bilirubin AST ALT Alkaline Phosphatase Total Protein Albumin Globulin Albumin/Globulin Ratio Hep Bs Antigen Negative Hep Bs Antibody Hep B Core IgM Ab Negative Hepatitis C Antibody Negative 08/15/17 08/15/17 08/16/17 20:28 23:55 00:10 WBC RBC Hgb Hct MCV MCH MCHC RDW Plt Count MPV Neut % (Auto) Lymph % (Auto) Antelope % (Auto) Eos % (Auto) Baso % (Auto) Neut # Lymph # Antelope # Eos # Baso # APTT 56 H D Sodium Potassium Chloride Carbon Dioxide Anion Gap BUN Creatinine Est GFR ( Amer) Est GFR (Non-Af Amer) POC Glucose (mg/dL) 214 H Random Glucose Calcium Phosphorus Magnesium Total Bilirubin AST ALT Alkaline Phosphatase Total Protein Albumin Globulin Albumin/Globulin Ratio Hep Bs Antigen Hep Bs Antibody Positive Hep B Core IgM Ab Hepatitis C Antibody 08/16/17 08/16/17 08/16/17 06:09 06:19 06:19 WBC 14.9 H RBC 4.02 L Hgb 9.5 L Hct 29.7 L MCV 73.8 L MCH 23.6 L MCHC 32.0 L RDW 22.1 H Plt Count 352 MPV 9.6 Neut % (Auto) 82.2 H Lymph % (Auto) 8.4 L Antelope % (Auto) 6.3 Eos % (Auto) 2.4 Baso % (Auto) 0.7 Neut # 12.3 H Lymph # 1.3 Antelope # 0.9 H Eos # 0.4 Baso # 0.1 APTT Sodium 138 Potassium 3.7 Chloride 100 Carbon Dioxide 27 Anion Gap 14 BUN 54 H Creatinine 3.2 H Est GFR ( Amer) 23 Est GFR (Non-Af Amer) 19 POC Glucose (mg/dL) 198 H Random Glucose 206 H Calcium 8.0 L Phosphorus 4.9 H Magnesium 2.3 Total Bilirubin 0.5 AST 135 H D ALT 71 Alkaline Phosphatase 133 H D Total Protein 5.7 L Albumin 2.8 L Globulin 3.0 Albumin/Globulin Ratio 0.9 L Hep Bs Antigen Hep Bs Antibody Hep B Core IgM Ab Hepatitis C Antibody 08/16/17 07:48 WBC RBC Hgb Hct MCV MCH MCHC RDW Plt Count MPV Neut % (Auto) Lymph % (Auto) Antelope % (Auto) Eos % (Auto) Baso % (Auto) Neut # Lymph # Antelope # Eos # Baso # APTT 45 H D Sodium Potassium Chloride Carbon Dioxide Anion Gap BUN Creatinine Est GFR ( Amer) Est GFR (Non-Af Amer) POC Glucose (mg/dL) Random Glucose Calcium Phosphorus Magnesium Total Bilirubin AST ALT Alkaline Phosphatase Total Protein Albumin Globulin Albumin/Globulin Ratio Hep Bs Antigen Hep Bs Antibody Hep B Core IgM Ab Hepatitis C Antibody Fingerstick Blood Sugar Results: 105 Review of Systems - Review of Systems Systems not reviewed;Unavailable: Intubated Critical Care Progress Note - Vent Settings MODE:: PRVC TIDAL VOLUME:: 500 RESP RATE:: 10 FIO2:: 60 PEEP:: 8 - Nutrition Nutrition: Nutrition Category Date Time Status Heart Healthy Diet [DIET] Diets 08/09/17 Lunch Active Assessment/Plan - Assessment and Plan (Free Text) Assessment: 77 yo M admitted to ICU from floors, patient was to get CT scan and had respiratory distress, a code blue was called and patient was transferred to ICU and intubated. Today (08/16): Yesterday evening patient had first HD treatment via right femoral HD catheter. Will have 2nd HD treatment today. Will not undergo thoracentesis today due to insignificant amount of fluid present as per deployment technician. Neuro: Sedated with propofol drip. Pulm: acute respiratory failure in severe ARDS. CT chest shows large right pleural effusion, consulted IR for pigtail placement (pneumothorax risk is high , so pigtail placement would be safest). Patient is showing slow improvement using lung protective strategy from [facility] protocol. CV: NSTEMI on heparin drip, metoprolol po qd, nifedipine po q8h. Hem: aspirin, plavix, heparin drip, holding eliquis. Renal: ALIREZA, Lasix 60mg IV q12h, becoming less effective, urine output decreasing. patient will most likely need dialysis, will discuss with [facility]. Endo: DM type 2, on insulin sliding scale for coverage GI: no recent BM's, Started Senna/Colace and enema. No obstruction seen on CT abdomen. ID: severe sepsis from pneumonia, continue Meropenem 500mg (started 08/14). DVT proph - heparin gtt GI proph - pepcid jaquez for strict I/O's during acute illness Code status - full code <Elkin Mena S - Last Filed: 08/16/17 18:13> CCU Objective - Vital Signs / Intake & Output Vital Signs (Last 4 hours): Vital Signs Temp Pulse Pulse Resp BP BP Pulse Ox 08/16/17 18:00 76 74 H 103/40 L 103/40 L 97 08/16/17 17:30 81 98/50 L 98 08/16/17 17:15 76 86/40 L 97 08/16/17 17:00 76 83 20 108/45 L 93/41 L 96 08/16/17 16:45 75 108/45 L 96 08/16/17 16:30 74 94/43 L 08/16/17 16:15 98.7 F 73 97/44 L 97 08/16/17 16:00 99.1 F 74 20 93/42 L 96 08/16/17 15:00 76 21 103/47 L 98 Intake and Output (Last 8hrs): Intake & Output 08/16/17 08/16/17 08/16/17 06:59 14:59 22:59 Intake Total 422.0 784.4 337.2 Output Total 115 Balance 307.0 784.4 337.2 Weight 222 lb 10.67 oz Intake: IV 210 270 Intake, IV Amount 212.0 234.4 117.2 Right Medial Port Femoral 98.4 98.4 49.2 Right Proximal Port 113.6 136 68 Tube Feeding 280 120 Other 100 Output: Urine 115 Urethral (Jaquez) 115 Other: # Voids Urethral (Jaquez) 10 - Medications Active Medications: Active Medications Generic Name Dose Route Start Last Admin Trade Name Freq PRN Reason Stop Dose Admin Acetaminophen 650 mg 08/11/17 17:40 08/16/17 12:31 Tylenol 650mg/20.3ml Solution Ud PO 650 mg Q6 PRN Administration Temperature Albumin Human 12.5 gm 08/16/17 17:27 08/16/17 17:48 Albumin Human 25% (12.5 Gm/50 Ml) IV 08/16/17 18:28 12.5 gm Q1H LUIS FERNANDO Administration Aspirin 81 mg 08/14/17 11:15 08/16/17 09:06 Aspirin Chewable PO 81 mg DAILY LUIS FERNANDO Administration Clopidogrel Bisulfate 75 mg 08/12/17 11:00 08/16/17 09:06 Plavix PO 75 mg DAILY LUIS FERNANDO Administration Famotidine 20 mg 08/09/17 10:00 08/16/17 09:05 Pepcid PO 20 mg DAILY LUIS FERNANDO Administration Propofol 1,000 mg in 100 mls @ 2.844 mls/hr 08/12/17 21:00 08/16/17 12:23 Diprivan IV 29.88 mcg/kg/min .Q24H PRN 16.996 mls/hr TITRATE PER MD ORDER Administration Protocol 5 MCG/KG/MIN Meropenem 500 mg/ Sodium 100 mls @ 100 mls/hr 08/14/17 22:00 08/16/17 09:33 Chloride IVPB 100 mls/hr Q12 LUIS FERNANDO Administration Heparin Sodium/Sodium Chloride 25,000 units in 250 mls @ 15.168 mls/hr 08:00 08/16/17 12:26 Heparin 68870 Units/250ml 1/2 Normal Saline IV 13 units/kg/hr .[id number] PRN 12.324 mls/hr PROTOCOL Administration Protocol 16 UNITS/KG/HR Insulin Aspart 0 unit 08/11/17 00:00 08/16/17 17:44 Novolog SC Not Given Q6H [facility] Protocol Insulin Glargine 10 unit 08/14/17 22:00 08/15/17 22:23 Lantus SC 10 u HS LUIS FERNANDO Administration Ipratropium Williams 0.5 mg 08/07/17 08:47 08/15/17 08:07 Atrovent IH 0.5 mg RQ6 PRN Administration Shortness of Breath Lactobacillus Acidophilus 1 cap 08/13/17 18:00 08/16/17 17:02 Bacid Acidophilus PO 1 cap BID LUIS FERNANDO Administration Lorazepam 1 mg 08/10/17 13:52 08/12/17 15:20 Ativan IVP 1 mg Q2H PRN Administration Agitation Metoprolol Succinate 50 mg 08/07/17 13:54 08/16/17 09:09 Toprol Xl PO 50 mg DAILY LUIS FERNANDO Administration Midazolam HCl 2 mg 08/12/17 14:26 Versed Inj IVP Q4H PRN Anxiety Rosuvastatin Calcium 10 mg 08/06/17 22:00 08/15/17 22:20 Crestor PO 10 mg HS LUIS FERNANDO Administration Senna/Docusate Sodium 1 tab 08/13/17 11:30 08/16/17 17:01 Senokot S 50 Mg-8.6 Mg PO 1 tab BID LUIS FERNANDO Administration - Patient Studies Lab Studies: Microbiology Studies 08/14/17 17:36 Gram Stain - Preliminary Trachasp Lab Studies 08/16/17 08/16/17 08/16/17 Range/Units 17:32 11:31 07:48 WBC (4.8-10.8) K/uL RBC (4.40-5.90) Mil/uL Hgb (12.0-18.0) g/dL Hct (35.0-51.0) % MCV (80.0-94.0) fL MCH (27.0-31.0) pg MCHC (33.0-37.0) g/dL RDW (11.5-14.5) % Plt Count (130-400) K/uL MPV (7.2-11.7) fL Neut % (Auto) (50.0-75.0) % Lymph % (Auto) (20.0-40.0) % Antelope % (Auto) (0.0-10.0) % Eos % (Auto) (0.0-4.0) % Baso % (Auto) (0.0-2.0) % Neut # (1.8-7.0) K/uL Lymph # (1.0-4.3) K/uL Antelope # (0.0-0.8) K/uL Eos # (0.0-0.7) K/uL Baso # (0.0-0.2) K/uL Neutrophils % (Manual) (50-75) % Band Neutrophils % (0-2) % Lymphocytes % (Manual) (20-40) % Reactive Lymphs % (0-0) % Monocytes % (Manual) (0-10) % Eosinophils % (Manual) (0-4) % Myelocytes % (0-0) % Platelet Estimate (NORMAL) Hypochromasia (manual) Poikilocytosis (manual Anisocytosis (manual) Microcytosis (manual) Macrocytosis (manual) Target Cells Ovalocytes Yakov Cells APTT 45 H D (21-34) SECONDS Sodium (132-148) mmol/L Potassium (3.6-5.2) mmol/L Chloride (98-107) mmol/L Carbon Dioxide (22-30) mmol/L Anion Gap (10-20) BUN (9-20) mg/dL Creatinine (0.8-1.5) MG/DL Est GFR ( Amer) Est GFR (Non-Af Amer) POC Glucose (mg/dL) 146 H 233 H (65-110) mg/dL Random Glucose (75-110) mg/dL Calcium (8.6-10.4) mg/dl Phosphorus (2.5-4.5) mg/dL Magnesium (1.6-2.3) mg/dL Total Bilirubin (0.2-1.3) mg/dL AST (17-59) U/L ALT (21-72) U/L Alkaline Phosphatase (38-126) U/L Total Protein (6.3-8.3) g/dL Albumin (3.5-5.0) g/dL Globulin (2.2-3.9) gm/dL Albumin/Globulin Ratio (1.0-2.1) Hep Bs Antigen (NEGATIVE) Hep Bs Antibody (NEGATIVE) Hep B Core IgM Ab (NEGATIVE) Hepatitis C Antibody (NEGATIVE) 08/16/17 08/16/17 08/16/17 Range/Units 06:19 06:19 06:09 WBC 14.9 H (4.8-10.8) K/uL RBC 4.02 L (4.40-5.90) Mil/uL Hgb 9.5 L (12.0-18.0) g/dL Hct 29.7 L (35.0-51.0) % MCV 73.8 L (80.0-94.0) fL MCH 23.6 L (27.0-31.0) pg MCHC 32.0 L (33.0-37.0) g/dL RDW 22.1 H (11.5-14.5) % Plt Count 352 (130-400) K/uL MPV 9.6 (7.2-11.7) fL Neut % (Auto) 82.2 H (50.0-75.0) % Lymph % (Auto) 8.4 L (20.0-40.0) % Antelope % (Auto) 6.3 (0.0-10.0) % Eos % (Auto) 2.4 (0.0-4.0) % Baso % (Auto) 0.7 (0.0-2.0) % Neut # 12.3 H (1.8-7.0) K/uL Lymph # 1.3 (1.0-4.3) K/uL Antelope # 0.9 H (0.0-0.8) K/uL Eos # 0.4 (0.0-0.7) K/uL Baso # 0.1 (0.0-0.2) K/uL Neutrophils % (Manual) 83 H (50-75) % Band Neutrophils % 3 H (0-2) % Lymphocytes % (Manual) 7 L (20-40) % Reactive Lymphs % 1 H (0-0) % Monocytes % (Manual) 4 (0-10) % Eosinophils % (Manual) 1 (0-4) % Myelocytes % 1 H (0-0) % Platelet Estimate Normal (NORMAL) Hypochromasia (manual) Slight Poikilocytosis (manual Slight Anisocytosis (manual) Slight Microcytosis (manual) Slight Macrocytosis (manual) Slight Target Cells Slight Ovalocytes Slight Yakov Cells Slight APTT (21-34) SECONDS Sodium 138 (132-148) mmol/L Potassium 3.7 (3.6-5.2) mmol/L Chloride 100 (98-107) mmol/L Carbon Dioxide 27 (22-30) mmol/L Anion Gap 14 (10-20) BUN 54 H (9-20) mg/dL Creatinine 3.2 H (0.8-1.5) MG/DL Est GFR ( Amer) 23 Est GFR (Non-Af Amer) 19 POC Glucose (mg/dL) 198 H (65-110) mg/dL Random Glucose 206 H (75-110) mg/dL Calcium 8.0 L (8.6-10.4) mg/dl Phosphorus 4.9 H (2.5-4.5) mg/dL Magnesium 2.3 (1.6-2.3) mg/dL Total Bilirubin 0.5 (0.2-1.3) mg/dL AST 135 H D (17-59) U/L ALT 71 (21-72) U/L Alkaline Phosphatase 133 H D (38-126) U/L Total Protein 5.7 L (6.3-8.3) g/dL Albumin 2.8 L (3.5-5.0) g/dL Globulin 3.0 (2.2-3.9) gm/dL Albumin/Globulin Ratio 0.9 L (1.0-2.1) Hep Bs Antigen (NEGATIVE) Hep Bs Antibody (NEGATIVE) Hep B Core IgM Ab (NEGATIVE) Hepatitis C Antibody (NEGATIVE) 08/16/17 08/15/17 08/15/17 Range/Units 00:10 23:55 20:28 WBC (4.8-10.8) K/uL RBC (4.40-5.90) Mil/uL Hgb (12.0-18.0) g/dL Hct (35.0-51.0) % MCV (80.0-94.0) fL MCH (27.0-31.0) pg MCHC (33.0-37.0) g/dL RDW (11.5-14.5) % Plt Count (130-400) K/uL MPV (7.2-11.7) fL Neut % (Auto) (50.0-75.0) % Lymph % (Auto) (20.0-40.0) % Antelope % (Auto) (0.0-10.0) % Eos % (Auto) (0.0-4.0) % Baso % (Auto) (0.0-2.0) % Neut # (1.8-7.0) K/uL Lymph # (1.0-4.3) K/uL Antelope # (0.0-0.8) K/uL Eos # (0.0-0.7) K/uL Baso # (0.0-0.2) K/uL Neutrophils % (Manual) (50-75) % Band Neutrophils % (0-2) % Lymphocytes % (Manual) (20-40) % Reactive Lymphs % (0-0) % Monocytes % (Manual) (0-10) % Eosinophils % (Manual) (0-4) % Myelocytes % (0-0) % Platelet Estimate (NORMAL) Hypochromasia (manual) Poikilocytosis (manual Anisocytosis (manual) Microcytosis (manual) Macrocytosis (manual) Target Cells Ovalocytes Benezett Cells APTT 56 H D (21-34) SECONDS Sodium (132-148) mmol/L Potassium (3.6-5.2) mmol/L Chloride (98-107) mmol/L Carbon Dioxide (22-30) mmol/L Anion Gap (10-20) BUN (9-20) mg/dL Creatinine (0.8-1.5) MG/DL Est GFR ( Amer) Est GFR (Non-Af Amer) POC Glucose (mg/dL) 214 H (65-110) mg/dL Random Glucose (75-110) mg/dL Calcium (8.6-10.4) mg/dl Phosphorus (2.5-4.5) mg/dL Magnesium (1.6-2.3) mg/dL Total Bilirubin (0.2-1.3) mg/dL AST (17-59) U/L ALT (21-72) U/L Alkaline Phosphatase (38-126) U/L Total Protein (6.3-8.3) g/dL Albumin (3.5-5.0) g/dL Globulin (2.2-3.9) gm/dL Albumin/Globulin Ratio (1.0-2.1) Hep Bs Antigen (NEGATIVE) Hep Bs Antibody Positive (NEGATIVE) Hep B Core IgM Ab (NEGATIVE) Hepatitis C Antibody (NEGATIVE) 08/15/17 Range/Units 20:28 WBC (4.8-10.8) K/uL RBC (4.40-5.90) Mil/uL Hgb (12.0-18.0) g/dL Hct (35.0-51.0) % MCV (80.0-94.0) fL MCH (27.0-31.0) pg MCHC (33.0-37.0) g/dL RDW (11.5-14.5) % Plt Count (130-400) K/uL MPV (7.2-11.7) fL Neut % (Auto) (50.0-75.0) % Lymph % (Auto) (20.0-40.0) % Antelope % (Auto) (0.0-10.0) % Eos % (Auto) (0.0-4.0) % Baso % (Auto) (0.0-2.0) % Neut # (1.8-7.0) K/uL Lymph # (1.0-4.3) K/uL Antelope # (0.0-0.8) K/uL Eos # (0.0-0.7) K/uL Baso # (0.0-0.2) K/uL Neutrophils % (Manual) (50-75) % Band Neutrophils % (0-2) % Lymphocytes % (Manual) (20-40) % Reactive Lymphs % (0-0) % Monocytes % (Manual) (0-10) % Eosinophils % (Manual) (0-4) % Myelocytes % (0-0) % Platelet Estimate (NORMAL) Hypochromasia (manual) Poikilocytosis (manual Anisocytosis (manual) Microcytosis (manual) Macrocytosis (manual) Target Cells Ovalocytes Benezett Cells APTT (21-34) SECONDS Sodium (132-148) mmol/L Potassium (3.6-5.2) mmol/L Chloride (98-107) mmol/L Carbon Dioxide (22-30) mmol/L Anion Gap (10-20) BUN (9-20) mg/dL Creatinine (0.8-1.5) MG/DL Est GFR ( Amer) Est GFR (Non-Af Amer) POC Glucose (mg/dL) (65-110) mg/dL Random Glucose (75-110) mg/dL Calcium (8.6-10.4) mg/dl Phosphorus 6.0 H (2.5-4.5) mg/dL Magnesium (1.6-2.3) mg/dL Total Bilirubin (0.2-1.3) mg/dL AST (17-59) U/L ALT (21-72) U/L Alkaline Phosphatase (38-126) U/L Total Protein (6.3-8.3) g/dL Albumin (3.5-5.0) g/dL Globulin (2.2-3.9) gm/dL Albumin/Globulin Ratio (1.0-2.1) Hep Bs Antigen Negative (NEGATIVE) Hep Bs Antibody (NEGATIVE) Hep B Core IgM Ab Negative (NEGATIVE) Hepatitis C Antibody Negative (NEGATIVE) Laboratory Results - last 24 hr 08/15/17 08/15/17 08/15/17 20:28 20:28 23:55 WBC RBC Hgb Hct MCV MCH MCHC RDW Plt Count MPV Neut % (Auto) Lymph % (Auto) Antelope % (Auto) Eos % (Auto) Baso % (Auto) Neut # Lymph # Antelope # Eos # Baso # Neutrophils % (Manual) Band Neutrophils % Lymphocytes % (Manual) Reactive Lymphs % Monocytes % (Manual) Eosinophils % (Manual) Myelocytes % Platelet Estimate Hypochromasia (manual) Poikilocytosis (manual Anisocytosis (manual) Microcytosis (manual) Macrocytosis (manual) Target Cells Ovalocytes Yakov Cells APTT 56 H D Sodium Potassium Chloride Carbon Dioxide Anion Gap BUN Creatinine Est GFR ( Amer) Est GFR (Non-Af Amer) POC Glucose (mg/dL) Random Glucose Calcium Phosphorus 6.0 H Magnesium Total Bilirubin AST ALT Alkaline Phosphatase Total Protein Albumin Globulin Albumin/Globulin Ratio Hep Bs Antigen Negative Hep Bs Antibody Positive Hep B Core IgM Ab Negative Hepatitis C Antibody Negative 08/16/17 08/16/17 08/16/17 00:10 06:09 06:19 WBC 14.9 H RBC 4.02 L Hgb 9.5 L Hct 29.7 L MCV 73.8 L MCH 23.6 L MCHC 32.0 L RDW 22.1 H Plt Count 352 MPV 9.6 Neut % (Auto) 82.2 H Lymph % (Auto) 8.4 L Antelope % (Auto) 6.3 Eos % (Auto) 2.4 Baso % (Auto) 0.7 Neut # 12.3 H Lymph # 1.3 Antelope # 0.9 H Eos # 0.4 Baso # 0.1 Neutrophils % (Manual) 83 H Band Neutrophils % 3 H Lymphocytes % (Manual) 7 L Reactive Lymphs % 1 H Monocytes % (Manual) 4 Eosinophils % (Manual) 1 Myelocytes % 1 H Platelet Estimate Normal Hypochromasia (manual) Slight Poikilocytosis (manual Slight Anisocytosis (manual) Slight Microcytosis (manual) Slight Macrocytosis (manual) Slight Target Cells Slight Ovalocytes Slight Yakov Cells Slight APTT Sodium Potassium Chloride Carbon Dioxide Anion Gap BUN Creatinine Est GFR ( Amer) Est GFR (Non-Af Amer) POC Glucose (mg/dL) 214 H 198 H Random Glucose Calcium Phosphorus Magnesium Total Bilirubin AST ALT Alkaline Phosphatase Total Protein Albumin Globulin Albumin/Globulin Ratio Hep Bs Antigen Hep Bs Antibody Hep B Core IgM Ab Hepatitis C Antibody 08/16/17 08/16/17 08/16/17 06:19 07:48 11:31 WBC RBC Hgb Hct MCV MCH MCHC RDW Plt Count MPV Neut % (Auto) Lymph % (Auto) Antelope % (Auto) Eos % (Auto) Baso % (Auto) Neut # Lymph # Antelope # Eos # Baso # Neutrophils % (Manual) Band Neutrophils % Lymphocytes % (Manual) Reactive Lymphs % Monocytes % (Manual) Eosinophils % (Manual) Myelocytes % Platelet Estimate Hypochromasia (manual) Poikilocytosis (manual Anisocytosis (manual) Microcytosis (manual) Macrocytosis (manual) Target Cells Ovalocytes Yakov Cells APTT 45 H D Sodium 138 Potassium 3.7 Chloride 100 Carbon Dioxide 27 Anion Gap 14 BUN 54 H Creatinine 3.2 H Est GFR ( Amer) 23 Est GFR (Non-Af Amer) 19 POC Glucose (mg/dL) 233 H Random Glucose 206 H Calcium 8.0 L Phosphorus 4.9 H Magnesium 2.3 Total Bilirubin 0.5 AST 135 H D ALT 71 Alkaline Phosphatase 133 H D Total Protein 5.7 L Albumin 2.8 L Globulin 3.0 Albumin/Globulin Ratio 0.9 L Hep Bs Antigen Hep Bs Antibody Hep B Core IgM Ab Hepatitis C Antibody 08/16/17 17:32 WBC RBC Hgb Hct MCV MCH MCHC RDW Plt Count MPV Neut % (Auto) Lymph % (Auto) Antelope % (Auto) Eos % (Auto) Baso % (Auto) Neut # Lymph # Antelope # Eos # Baso # Neutrophils % (Manual) Band Neutrophils % Lymphocytes % (Manual) Reactive Lymphs % Monocytes % (Manual) Eosinophils % (Manual) Myelocytes % Platelet Estimate Hypochromasia (manual) Poikilocytosis (manual Anisocytosis (manual) Microcytosis (manual) Macrocytosis (manual) Target Cells Ovalocytes Yakov Cells APTT Sodium Potassium Chloride Carbon Dioxide Anion Gap BUN Creatinine Est GFR ( Amer) Est GFR (Non-Af Amer) POC Glucose (mg/dL) 146 H Random Glucose Calcium Phosphorus Magnesium Total Bilirubin AST ALT Alkaline Phosphatase Total Protein Albumin Globulin Albumin/Globulin Ratio Hep Bs Antigen Hep Bs Antibody Hep B Core IgM Ab Hepatitis C Antibody Critical Care Progress Note - Nutrition Nutrition: Nutrition Category Date Time Status Heart Healthy Diet [DIET] Diets 08/09/17 Lunch Active Assessment/Plan (1) Cardiac arrest Current Visit: Yes Status: Acute (2) Pneumonia Current Visit: Yes Status: Acute (3) History of DVT (deep vein thrombosis) Current Visit: Yes Status: Acute (4) CKD (chronic kidney disease) Current Visit: No Status: Acute Comment: BUN/Cr 32/2.5 today Cr 2.0 at baseline (5) Acute on chronic renal failure Current Visit: Yes Status: Acute (6) CHF (congestive heart failure) Current Visit: Yes Status: Acute Comment: Patient's weight in the ER on 03/17 was 190 pounds and yesterday was 186.3 pounds on exam Lasix 40 mg PO daily Metoprolol 25 mg PO 1x/day Losartan 100 mg PO 1x/day Cardiology Dr. Cortés is following - help appreciated Attending/Attestation - Attestation I have personally seen and examined this patient.: Yes I have fully participated in the care of the patient.: Yes I have reviewed all pertinent clinical information: Yes Notes (Text): 08/16/17 18:11 Patient seen and examined in the intensive care unit. Case discussed with the house staff in the morning rounds. Remains intubated on ventilatory support FiO2 60% with PEEP of 8 Triple-lumen catheter was inserted in the right internal jugular vein Started on hemodialysis yesterday Continue antibiotics Continue feeding On heparin drip Case discussed with family Critical care time 45 minutes
[2017-08-16] MEDS: Ferric Sodium Gluconat Complex 62.5 mg/5 ml Vial IVPB SCH (09:05)
[2017-08-16] MEDS: Docusate-Senna 50 mg-8.6 mg Tab PO SCH ×2 (09:06→17:01)
[2017-08-16] MEDS: Lactobacillus Acidophilus 500 MU Cap PO SCH ×2 (09:06→17:02)
[2017-08-16] MEDS: Metoprolol Succinate 50 mg XL Tab PO SCH (09:09)
[2017-08-16] MEDS: Meropenem 500 MG in Sodium Chloride 0.9% 100 ML IVPB SCH ×2 (09:33→22:34)
--- NOTE | 2017-08-16 09:36 | RAD ---
Chest x-ray single frontal view History: Intubated. Comparison: 08/15/2017 Findings: Lines and tubes in stable position. Left-sided pacemaker. Worsening now dense consolidations seen in the right upper to mid lung zone as well as throughout the left lung. Superimposed severe venous congestion. Superimposed small to moderate left and small right pleural effusion. Cardiomegaly. Degenerative changes in the spine and shoulders. Impression: Lines and tubes in stable position. Left-sided pacemaker. Worsening now dense consolidations seen in the right upper to mid lung zone as well as throughout the left lung. Superimposed severe venous congestion. Superimposed small to moderate left and small right pleural effusion. Cardiomegaly.
--- NOTE | 2017-08-16 10:35 | CP.PCM.PN ---
Subjective - Date & Time of Evaluation Date of Evaluation: 08/16/17 Time of Evaluation: 10:35 - Subjective Subjective: seen and examined uop 600cc? s/p hd last night Objective - Vital Signs/Intake and Output Vital Signs (last 24 hours): Temp Pulse Resp BP Pulse Ox 99.1 F 92 H 24 128/47 L 93 L 08/16/17 08:19 08/16/17 09:00 08/16/17 09:00 08/16/17 09:06 08/16/17 09:00 Intake and Output: 08/16/17 08/16/17 06:59 18:59 Intake Total 572.8 167.9 Output Total 205 Balance 367.8 167.9 - Medications Medications: Current Medications Acetaminophen (Tylenol 650mg/20.3ml Solution Ud) 650 mg PO Q6 PRN PRN Reason: Temperature Last Admin: 08/13/17 10:45 Dose: 650 mg Aspirin (Aspirin Chewable) 81 mg PO DAILY [facility] Last Admin: 08/16/17 09:06 Dose: 81 mg Clopidogrel Bisulfate (Plavix) 75 mg PO DAILY [facility] Last Admin: 08/16/17 09:06 Dose: 75 mg Famotidine (Pepcid) 20 mg PO DAILY [facility] Last Admin: 08/16/17 09:05 Dose: 20 mg Furosemide (Lasix) 60 mg IVP Q12 [facility] Last Admin: 08/16/17 09:06 Dose: 60 mg Propofol (Diprivan) 1,000 mg in 100 mls @ 2.844 mls/hr IV .Q24H PRN; Protocol; 5 MCG/KG/MIN PRN Reason: TITRATE PER MD ORDER Last Titration: 08/16/17 06:56 Dose: 29.88 mcg/kg/min, 16.996 mls/hr Meropenem 500 mg/ Sodium (Chloride) 100 mls @ 100 mls/hr IVPB Q12 [facility] Last Admin: 08/16/17 09:33 Dose: 100 mls/hr Heparin Sodium/Sodium Chloride (Heparin 42907 Units/250ml 1/2 Normal Saline) 25 ,000 units in 250 mls @ 15.168 mls/hr IV .[id number] PRN; Protocol; 16 UNITS/KG/HR PRN Reason: PROTOCOL Last Titration: 08/15/17 19:43 Dose: 13 units/kg/hr, 12.324 mls/hr Insulin Aspart (Novolog) 0 unit SC Q6H [facility] PRN Reason: Protocol Last Admin: 08/16/17 06:44 Dose: 2 unit Insulin Glargine (Lantus) 10 unit SC [facility] Last Admin: 08/15/17 22:23 Dose: 10 u Ipratropium [place] (Atrovent) 0.5 mg IH RQ6 PRN PRN Reason: Shortness of Breath Last Admin: 08/15/17 08:07 Dose: 0.5 mg Lactobacillus Acidophilus (Bacid Acidophilus) 1 cap PO BID [facility] Last Admin: 08/16/17 09:06 Dose: 1 cap Lorazepam (Ativan) 1 mg IVP Q2H PRN PRN Reason: Agitation Last Admin: 08/12/17 15:20 Dose: 1 mg Metoprolol Succinate (Toprol Xl) 50 mg PO DAILY [facility] Last Admin: 08/16/17 09:09 Dose: 50 mg Midazolam HCl (Versed Inj) 2 mg IVP Q4H PRN PRN Reason: Anxiety Rosuvastatin Calcium (Crestor) 10 mg PO [facility] Last Admin: 08/15/17 22:20 Dose: 10 mg Senna/Docusate Sodium (Senokot S 50 Mg-8.6 Mg) 1 tab PO BID [facility] Last Admin: 08/16/17 09:06 Dose: 1 tab - Labs Labs: 08/16/17 06:19 08/16/17 06:19 PT 13.0 SECONDS (9.7-12.2) H 08/09/17 23:23 INR 1.2 08/09/17 23:23 APTT 45 SECONDS (21-34) H D 08/16/17 07:48 - Constitutional Appears: Chronically Ill (intubated sedated) - Eye Exam Eye Exam: Normal appearance - ENT Exam Additional comments: et tube - Neck Exam Neck Exam: Normal Inspection - Respiratory Exam Respiratory Exam: Decreased Breath Sounds (mechanical vent sounds) - Cardiovascular Exam Cardiovascular Exam: REGULAR RHYTHM - GI/Abdominal Exam GI & Abdominal Exam: Distended, Soft - Extremities Exam Extremities Exam: Normal Inspection, Pedal Edema Assessment and Plan (1) Acute on chronic renal failure Status: Acute (2) CHF (congestive heart failure) Status: Acute (3) History of DVT (deep vein thrombosis) Status: Acute (4) CAD (coronary artery disease) Status: Acute (5) CKD (chronic kidney disease) Status: Acute - Assessment and Plan (Free Text) Assessment: hd today dc iv lasix
[2017-08-16] MEDS: Heparin25000 units/250ml 1/2NS 25,000 UNITS/250 ML BAG IV PRN (12:26)
[2017-08-16] MEDS: Acetaminophen 650mg/20.3ml solution UD PO PRN (12:31)
--- NOTE | 2017-08-16 14:26 | CP.PCM.PN ---
<Grace Diego - Last Filed: 08/16/17 14:23> Subjective - Date & Time of Evaluation Date of Evaluation: 08/16/17 Time of Evaluation: 09:40 - Subjective Subjective: Progress Note for Dr. Cortés Patient seen and examined with a family member at bedside. Patient is currently intubated and sedated. No acute events overnight. Unable to obtain further ROS as patient currently intubated. Objective - Vital Signs/Intake and Output Vital Signs (last 24 hours): Temp Pulse Resp BP Pulse Ox 100.8 F H 81 19 104/40 L 98 08/16/17 11:59 08/16/17 14:00 08/16/17 14:00 08/16/17 14:00 08/16/17 14:00 Intake and Output: 08/16/17 08/16/17 06:59 18:59 Intake Total 572.8 784.4 Output Total 205 Balance 367.8 784.4 - Medications Medications: Current Medications Acetaminophen (Tylenol 650mg/20.3ml Solution Ud) 650 mg PO Q6 PRN PRN Reason: Temperature Last Admin: 08/16/17 12:31 Dose: 650 mg Aspirin (Aspirin Chewable) 81 mg PO DAILY [facility] Last Admin: 08/16/17 09:06 Dose: 81 mg Clopidogrel Bisulfate (Plavix) 75 mg PO DAILY [facility] Last Admin: 08/16/17 09:06 Dose: 75 mg Famotidine (Pepcid) 20 mg PO DAILY [facility] Last Admin: 08/16/17 09:05 Dose: 20 mg Propofol (Diprivan) 1,000 mg in 100 mls @ 2.844 mls/hr IV .Q24H PRN; Protocol; 5 MCG/KG/MIN PRN Reason: TITRATE PER MD ORDER Last Admin: 08/16/17 12:23 Dose: 29.88 mcg/kg/min, 16.996 mls/hr Meropenem 500 mg/ Sodium (Chloride) 100 mls @ 100 mls/hr IVPB Q12 [facility] Last Admin: 08/16/17 09:33 Dose: 100 mls/hr Heparin Sodium/Sodium Chloride (Heparin 13624 Units/250ml 1/2 Normal Saline) 25 ,000 units in 250 mls @ 15.168 mls/hr IV .[id number] PRN; Protocol; 16 UNITS/KG/HR PRN Reason: PROTOCOL Last Admin: 08/16/17 12:26 Dose: 13 units/kg/hr, 12.324 mls/hr Insulin Aspart (Novolog) 0 unit SC Q6H [facility] PRN Reason: Protocol Last Admin: 08/16/17 12:27 Dose: 4 unit Insulin Glargine (Lantus) 10 unit SC [facility] Last Admin: 08/15/17 22:23 Dose: 10 u Ipratropium [place] (Atrovent) 0.5 mg IH RQ6 PRN PRN Reason: Shortness of Breath Last Admin: 08/15/17 08:07 Dose: 0.5 mg Lactobacillus Acidophilus (Bacid Acidophilus) 1 cap PO BID [facility] Last Admin: 08/16/17 09:06 Dose: 1 cap Lorazepam (Ativan) 1 mg IVP Q2H PRN PRN Reason: Agitation Last Admin: 08/12/17 15:20 Dose: 1 mg Metoprolol Succinate (Toprol Xl) 50 mg PO DAILY [facility] Last Admin: 08/16/17 09:09 Dose: 50 mg Midazolam HCl (Versed Inj) 2 mg IVP Q4H PRN PRN Reason: Anxiety Rosuvastatin Calcium (Crestor) 10 mg PO [facility] Last Admin: 08/15/17 22:20 Dose: 10 mg Senna/Docusate Sodium (Senokot S 50 Mg-8.6 Mg) 1 tab PO BID [facility] Last Admin: 08/16/17 09:06 Dose: 1 tab - Labs Labs: 08/16/17 06:19 08/16/17 06:19 PT 13.0 SECONDS (9.7-12.2) H 08/09/17 23:23 INR 1.2 08/09/17 23:23 APTT 45 SECONDS (21-34) H D 08/16/17 07:48 - Constitutional Appears: No Acute Distress, Chronically Ill - Head Exam Head Exam: ATRAUMATIC, NORMAL INSPECTION - Eye Exam Eye Exam: PERRL - Respiratory Exam Respiratory Exam: Decreased Breath Sounds. absent: Respiratory Distress - Cardiovascular Exam Cardiovascular Exam: REGULAR RHYTHM, +S1, +S2 - GI/Abdominal Exam GI & Abdominal Exam: Soft. absent: Hernia - Extremities Exam Extremities Exam: Normal Capillary Refill, Pedal Edema - Neurological Exam Additional comments: under sedation - Skin Skin Exam: Dry, Warm Assessment and Plan - Assessment and Plan (Free Text) Assessment: CAD, chest pain -No plans for cardiac cath at this time (acute respiratory failure and elevated Cr), history of abnormal stress test -Elevated Troponin likely due to chest compressions during code blue -No acute ST changes on EKG -Continue heparin drip, ASA, Plavix, Crestor, Lasix, Metoprolol -Echocardiogram from 08/08/17 showed left ventricle systolic function is severely impaired. EF: 25-30%; global hypokinesis of LV mild AR. MR is moderate. Moderate-severe pulmonary hypertesnion Systolic CHF exacerbation -BNP 96570 on 08/06/17 -Continue heparin drip, ASA, Plavix, Crestor, Lasix, Metoprolol -Echocardiogram from 08/08/17 showed left ventricle systolic function is severely impaired. EF: 25-30%; global hypokinesis of LV mild AR. MR is moderate. Moderate-severe pulmonary hypertesnion <Sina Cortés - Last Filed: 08/16/17 23:19> Objective - Vital Signs/Intake and Output Vital Signs (last 24 hours): Temp Pulse Resp BP Pulse Ox 98.7 F 75 20 99/43 L 98 08/16/17 16:15 08/16/17 19:00 08/16/17 19:00 08/16/17 19:00 08/16/17 19:00 Intake and Output: 08/16/17 08/17/17 18:59 06:59 Intake Total 1261.6 69.3 Output Total 340 30 Balance 921.6 39.3 - Medications Medications: Current Medications Acetaminophen (Tylenol 650mg/20.3ml Solution Ud) 650 mg PO Q6 PRN PRN Reason: Temperature Last Admin: 08/16/17 12:31 Dose: 650 mg Aspirin (Aspirin Chewable) 81 mg PO DAILY [facility] Last Admin: 08/16/17 09:06 Dose: 81 mg Clopidogrel Bisulfate (Plavix) 75 mg PO DAILY [facility] Last Admin: 08/16/17 09:06 Dose: 75 mg Famotidine (Pepcid) 20 mg PO DAILY [facility] Last Admin: 08/16/17 09:05 Dose: 20 mg Propofol (Diprivan) 1,000 mg in 100 mls @ 2.844 mls/hr IV .Q24H PRN; Protocol; 5 MCG/KG/MIN PRN Reason: TITRATE PER MD ORDER Last Admin: 08/16/17 17:00 Dose: 29.88 mcg/kg/min, 16.996 mls/hr Meropenem 500 mg/ Sodium (Chloride) 100 mls @ 100 mls/hr IVPB Q12 [facility] Last Admin: 08/16/17 22:34 Dose: 100 mls/hr Heparin Sodium/Sodium Chloride (Heparin 05169 Units/250ml 1/2 Normal Saline) 25 ,000 units in 250 mls @ 15.168 mls/hr IV .[id number] PRN; Protocol; 16 UNITS/KG/HR PRN Reason: PROTOCOL Last Admin: 08/16/17 12:26 Dose: 13 units/kg/hr, 12.324 mls/hr Insulin Aspart (Novolog) 0 unit SC Q6H [facility] PRN Reason: Protocol Last Admin: 08/16/17 17:44 Dose: Not Given Insulin Glargine (Lantus) 10 unit SC [facility] Last Admin: 08/15/17 22:23 Dose: 10 u Ipratropium [place] (Atrovent) 0.5 mg IH RQ6 PRN PRN Reason: Shortness of Breath Last Admin: 08/15/17 08:07 Dose: 0.5 mg Lactobacillus Acidophilus (Bacid Acidophilus) 1 cap PO BID [facility] Last Admin: 08/16/17 17:02 Dose: 1 cap Lorazepam (Ativan) 1 mg IVP Q2H PRN PRN Reason: Agitation Last Admin: 08/12/17 15:20 Dose: 1 mg Metoprolol Succinate (Toprol Xl) 50 mg PO DAILY [facility] Last Admin: 08/16/17 09:09 Dose: 50 mg Midazolam HCl (Versed Inj) 2 mg IVP Q4H PRN PRN Reason: Anxiety Rosuvastatin Calcium (Crestor) 10 mg PO HS [facility] Last Admin: 08/15/17 22:20 Dose: 10 mg Senna/Docusate Sodium (Senokot S 50 Mg-8.6 Mg) 1 tab PO BID [facility] Last Admin: 08/16/17 17:01 Dose: 1 tab - Labs Labs: 08/16/17 06:19 08/16/17 06:19 PT 13.0 SECONDS (9.7-12.2) H 08/09/17 23:23 INR 1.2 08/09/17 23:23 APTT 45 SECONDS (21-34) H D 08/16/17 07:48 Assessment and Plan - Assessment and Plan (Free Text) Assessment: Patient seen and evaluated. Plan of care as above.
--- NOTE | 2017-08-16 14:52 | RAD ---
Chest x-ray single frontal view History: Central line placement. Comparison: 08/16/2017 Findings: Right central venous catheter tip extending into the right SVC. Endotracheal tube and NG tube in stable positions. Again identified is dense confluent consolidative changes seen in the right hilar and suprahilar regions as well as within the left suprahilar region and left lung base. Prominent diffuse increased interstitial lung markings bilaterally with moderate left and small right pleural effusion. Biapical pleural thickening with upper lobe granulomatous changes. Cardiomegaly. Calcification at the aortic knob. Degenerative changes in the spine and shoulders. Left-sided pacemaker. Impression: Right central venous catheter tip extending into the right SVC. Endotracheal tube and NG tube in stable positions. Again identified is dense confluent consolidative changes seen in the right hilar and suprahilar regions as well as within the left suprahilar region and left lung base. Prominent diffuse increased interstitial lung markings bilaterally with moderate left and small right pleural effusion. Biapical pleural thickening with upper lobe granulomatous changes. Cardiomegaly.
[2017-08-16] MEDS: Albumin Human 25% (12.5 gm/50 ml) IV SCH ×2 (17:42→17:48)
--- NOTE | 2017-08-16 18:12 | US ---
Limited right santiago thorax ultrasound History: Pleural effusion. Comparison: None available. Technique: Limited right hemithorax ultrasound performed. Findings: Small right pleural effusion. Impression: Small right pleural effusion
--- NOTE | 2017-08-16 18:20 | PCM.PROC ---
Procedures Attestation:: I certify that I have explained the specified Operation(s) or Procedure(s), risks, benefits and reasonable alternatives to the Patient and/or other person responsible. The opportunity was given to ask questions and all questions answered - Central Line Placement Right Internal Jugular Aseptic technique was employed throughout the procedure: Hand Hygiene done prior to procedure, Full sterile barriers (mask, hair cover, sterile gown, sterile gloves), Full body sterile drape, Chloraprep Antiseptic: 30 second prep for IJ or SC sites CVP Time Out Performed: Yes Pt. Placed on Pulse Ox Monitor: Yes Central Line Prep: Chlorhexidine-Alcohol Combination Local Anesthesia Used: Lidocaine 1% Amount of Anesthesia Used (mls): 3 Ultrasound Used for Placement: Yes Central Line Lumen Inserted: triple Central Line Length: 16 cm Post Procedure: Sutured in Place, Good Blood Return, All Ports Aspirated, Flushed, Capped, Sterile Dressing Applied Secured by: Suture Post procedure dressing: Chlorhexidine disc (Biopatch) Post Procedure X-Ray: Yes Patient Tolerated Procedure: Well Immediate Complications: None
--- NOTE | 2017-08-16 22:32 | CP.PCM.PN ---
Subjective - Date & Time of Evaluation Date of Evaluation: 08/16/17 Time of Evaluation: 04:00 - Subjective Subjective: dictated Objective - Vital Signs/Intake and Output Vital Signs (last 24 hours): Temp Pulse Resp BP Pulse Ox 98.7 F 75 20 99/43 L 98 08/16/17 16:15 08/16/17 19:00 08/16/17 19:00 08/16/17 19:00 08/16/17 19:00 Intake and Output: 08/16/17 08/17/17 18:59 06:59 Intake Total 1261.6 69.3 Output Total 340 30 Balance 921.6 39.3 - Medications Medications: Current Medications Acetaminophen (Tylenol 650mg/20.3ml Solution Ud) 650 mg PO Q6 PRN PRN Reason: Temperature Last Admin: 08/16/17 12:31 Dose: 650 mg Aspirin (Aspirin Chewable) 81 mg PO DAILY [facility] Last Admin: 08/16/17 09:06 Dose: 81 mg Clopidogrel Bisulfate (Plavix) 75 mg PO DAILY [facility] Last Admin: 08/16/17 09:06 Dose: 75 mg Famotidine (Pepcid) 20 mg PO DAILY [facility] Last Admin: 08/16/17 09:05 Dose: 20 mg Propofol (Diprivan) 1,000 mg in 100 mls @ 2.844 mls/hr IV .Q24H PRN; Protocol; 5 MCG/KG/MIN PRN Reason: TITRATE PER MD ORDER Last Admin: 08/16/17 17:00 Dose: 29.88 mcg/kg/min, 16.996 mls/hr Meropenem 500 mg/ Sodium (Chloride) 100 mls @ 100 mls/hr IVPB Q12 [facility] Last Admin: 08/16/17 09:33 Dose: 100 mls/hr Heparin Sodium/Sodium Chloride (Heparin 37309 Units/250ml 1/2 Normal Saline) 25 ,000 units in 250 mls @ 15.168 mls/hr IV .[id number] PRN; Protocol; 16 UNITS/KG/HR PRN Reason: PROTOCOL Last Admin: 08/16/17 12:26 Dose: 13 units/kg/hr, 12.324 mls/hr Insulin Aspart (Novolog) 0 unit SC Q6H [facility] PRN Reason: Protocol Last Admin: 08/16/17 17:44 Dose: Not Given Insulin Glargine (Lantus) 10 unit SC [facility] Last Admin: 08/15/17 22:23 Dose: 10 u Ipratropium [place] (Atrovent) 0.5 mg IH RQ6 PRN PRN Reason: Shortness of Breath Last Admin: 08/15/17 08:07 Dose: 0.5 mg Lactobacillus Acidophilus (Bacid Acidophilus) 1 cap PO BID [facility] Last Admin: 08/16/17 17:02 Dose: 1 cap Lorazepam (Ativan) 1 mg IVP Q2H PRN PRN Reason: Agitation Last Admin: 08/12/17 15:20 Dose: 1 mg Metoprolol Succinate (Toprol Xl) 50 mg PO DAILY [facility] Last Admin: 08/16/17 09:09 Dose: 50 mg Midazolam HCl (Versed Inj) 2 mg IVP Q4H PRN PRN Reason: Anxiety Rosuvastatin Calcium (Crestor) 10 mg PO [facility] Last Admin: 08/15/17 22:20 Dose: 10 mg Senna/Docusate Sodium (Senokot S 50 Mg-8.6 Mg) 1 tab PO BID [facility] Last Admin: 08/16/17 17:01 Dose: 1 tab - Labs Labs: 08/16/17 06:19 08/16/17 06:19 PT 13.0 SECONDS (9.7-12.2) H 08/09/17 23:23 INR 1.2 08/09/17 23:23 APTT 45 SECONDS (21-34) H D 08/16/17 07:48
[2017-08-16] MEDS: (Lantus) Insulin Glargine, Recombinant SC SCH (23:00)
[2017-08-17] MEDS: (Novolog) Insulin Aspart, Recombinant 100 u/ml 10 ml vial SC SCH ×5 (01:00→18:33)
--- NOTE | 2017-08-17 04:20 | PN ---
INFECTIOUS DISEASE FOLLOWUP SUBJECTIVE: The patient remains intubated and sedated. He has a new line placed and right groin line will be removed. On the left groin, they have put in a dialysis catheter and he already had one dialysis. He was seen. He was going to have pleural tap I was told. He remains on IV antibiotics; however, remains anuric. PHYSICAL EXAMINATION: VITAL SIGNS: Pulse is 75, blood pressure 103/40, respirations are 18 and remains on the vent. NECK: Supple. LUNGS: Decreased breath sounds bilaterally. No wheezing. No rhonchi. HEART: S1 and S2 is regular. ABDOMEN: Less distended. No guarding. No rigidity present. EXTREMITIES: Bilateral edema. LABORATORY DATA: Labs are noted. Labs show white count is 14.9, hemoglobin 9.5 and platelets are 352, hematocrit is 29.7. Sodium is 138, potassium 3.7, chloride 100, CO2 is 27, BUN is 54, creatinine is 3.2, so creatinine is still elevated, but slightly better. His urine culture came out positive for Gram negative 10,000 to 50,000. They are not giving us any idea of sensitivity, but at this time, I would continue meropenem to cover for ESBL. He has pneumococcal pneumonia and he underwent pleural effusion for CHF, and has acute renal failure, status post cardiopulmonary arrest. We will continue IV antibiotics and we will follow. Allan Lawrence MD
[2017-08-17] MEDS: Propofol 10 mg/ml 1,000 MG/100 ML VIAL IV PRN ×3 (05:25→18:00)
[2017-08-17 06:19] LABS: ABG ALLEN TEST POS; ABG MECHANICAL RATE 10; ARTERIAL BLOOD GAS MODE PRVC; ARTERIAL BLOOD HGB O2 SAT 93.5 % (95.0-98.0); ATERIAL BLOOD GAS PEEP 8; CARBOXYHEMOGLOBIN 2.2 % (0.5-1.5); DRAW SITE R RAD; HHB 3.4 % (0.0-5.0); METHEMOGLOBIN 0.9 % (0.0-3.0)
[2017-08-17 06:24] LABS: BASO % 0.2 % (0.0-2.0); EOS # 0.2 K/uL (0.0-0.7); EOS % 1.1 % (0.0-4.0); HEMATOCRIT 29.7 % (35.0-51.0); LYMPH # 0.6 K/uL (1.0-4.3); LYMPH % 3.9 % (20.0-40.0); MEAN CELL VOLUME 73.6 fL (80.0-94.0); MEAN CORPUSCULAR HEMOGLOBIN 22.9 pg (27.0-31.0); MEAN CORPUSCULAR HGB CONC 31.1 g/dL (33.0-37.0); MEAN PLATELET VOLUME 9.7 fL (7.2-11.7); MONO # 0.5 K/uL (0.0-0.8); MONO % 2.9 % (0.0-10.0); PLATELET COUNT 340 K/uL (130-400); RED CELL DISTRIBUTION WIDTH 22.4 % (11.5-14.5); WHITE BLOOD COUNT 15.4 K/uL (4.8-10.8)
[2017-08-17 06:28] LABS: POTASSIUM 4.2 mmol/L (3.6-5.2)
[2017-08-17 06:31] LABS: ALB/GLOB RATIO 0.9 (1.0-2.1); BILIRUBIN,TOTAL 0.6 mg/dL (0.2-1.3); TOTAL PROTEIN 6.4 g/dL (6.3-8.3)
[2017-08-17 06:32] LABS: CALCIUM 7.9 mg/dl (8.6-10.4); MAGNESIUM 2.4 mg/dL (1.6-2.3)
[2017-08-17 08:52] LABS: EOSINOPHIL 1 % (0-4); NEUTROPHIL 88 % (50-75); TOTAL CELLS COUNTED 100
[2017-08-17 08:53] LABS: GIANT PLATELETS PRESENT; LARGE PLATELETS PRESENT
--- NOTE | 2017-08-17 10:59 | CP.CCUPN ---
CCU Subjective - Physician Review Subjective (Free Text): Patient seen and examined at bedside. Patient is getting HD today. Patient is intubated, ROS unobtainable. CCU Objective - Vital Signs / Intake & Output Vital Signs (Last 4 hours): Vital Signs Temp Pulse Resp BP Pulse Ox 08/17/17 10:19 88 20 144/51 L 99 08/17/17 10:04 85 23 138/60 98 08/17/17 09:49 85 20 124/70 99 08/17/17 09:34 85 20 132/36 L 97 08/17/17 09:33 84 22 130/61 99 08/17/17 09:16 86 21 140/55 L 98 08/17/17 09:03 86 21 129/57 L 98 08/17/17 08:03 88 23 136/60 96 08/17/17 08:00 99.8 F H 08/17/17 07:03 85 21 131/55 L 97 08/17/17 07:00 86 21 98 Intake and Output (Last 8hrs): Intake & Output 08/16/17 08/17/17 08/17/17 22:59 06:59 14:59 Intake Total 954.4 654.4 264.9 Output Total 205 150 115 Balance 749.4 504.4 149.9 Weight 208 lb 15.971 oz Intake: IV 200 100 Intake, IV Amount 334.4 234.4 104.9 Left Hand 98.4 36.9 Right Distal Port 100 Right Medial Port Femoral 98.4 Right Proximal Port 136 136 68 Tube Feeding 320 320 160 Other 100 Output: Urine 205 150 115 Urethral (Jaquez) 205 150 115 - Physical Exam Head: Positive for: Atraumatic, Normocephalic Pupils: Positive for: Sluggish Conjunctiva: Positive for: Normal Pharnyx: Positive for: Normal Respiratory/Chest: Positive for: Decreased Breath Sounds, Other (on vent) Cardiovascular: Positive for: Regular Rate and Rhythm, Normal S1, S2 Abdomen: Positive for: Distention, Normal Bowel Sounds, Other (obese habitus) Skin: Positive for: Warm, Dry Psychiatric: Positive for: Other (sedated) - Medications Active Medications: Active Medications Generic Name Dose Route Start Last Admin Trade Name Freq PRN Reason Stop Dose Admin Acetaminophen 650 mg 08/11/17 17:40 08/16/17 12:31 Tylenol 650mg/20.3ml Solution Ud PO 650 mg Q6 PRN Administration Temperature Aspirin 81 mg 08/14/17 11:15 08/16/17 09:06 Aspirin Chewable PO 81 mg DAILY LUIS FERNANDO Administration Clopidogrel Bisulfate 75 mg 08/12/17 11:00 08/16/17 09:06 Plavix PO 75 mg DAILY LUIS FERNANDO Administration Enoxaparin Sodium 30 mg 08/17/17 10:00 Lovenox SC DAILY LUIS FERNANDO Famotidine 20 mg 08/09/17 10:00 08/16/17 09:05 Pepcid PO 20 mg DAILY LUIS FERNANDO Administration Propofol 1,000 mg in 100 mls @ 2.844 mls/hr 08/12/17 21:00 08/17/17 05:25 Diprivan IV 29.88 mcg/kg/min .Q24H PRN 16.996 mls/hr TITRATE PER MD ORDER Administration Protocol 5 MCG/KG/MIN Meropenem 500 mg/ Sodium 100 mls @ 100 mls/hr 08/14/17 22:00 08/16/17 22:34 Chloride IVPB 100 mls/hr Q12 LUIS FERNANDO Administration Insulin Aspart 0 unit 08/11/17 00:00 08/17/17 07:00 Novolog SC 6 unit Q6H LUIS FERNANDO Administration Protocol Insulin Glargine 10 unit 08/14/17 22:00 08/16/17 23:00 Lantus SC 10 u HS LUIS FERNANDO Administration Ipratropium [place] 0.5 mg 08/07/17 08:47 08/15/17 08:07 Atrovent IH 0.5 mg RQ6 PRN Administration Shortness of Breath Lactobacillus Acidophilus 1 cap 08/13/17 18:00 08/16/17 17:02 Bacid Acidophilus PO 1 cap BID LUIS FERNANDO Administration Lorazepam 1 mg 08/10/17 13:52 08/12/17 15:20 Ativan IVP 1 mg Q2H PRN Administration Agitation Metoprolol Succinate 50 mg 08/07/17 13:54 08/16/17 09:09 Toprol Xl PO 50 mg DAILY LUIS FERNANDO Administration Midazolam HCl 2 mg 08/12/17 14:26 Versed Inj IVP Q4H PRN Anxiety Rosuvastatin Calcium 10 mg 08/06/17 22:00 08/16/17 23:00 Crestor PO 10 mg HS LUIS FERNANDO Administration Senna/Docusate Sodium 1 tab 08/13/17 11:30 08/16/17 17:01 Senokot S 50 Mg-8.6 Mg PO 1 tab BID LUIS FERNANDO Administration - Patient Studies Lab Studies: Microbiology Studies 08/14/17 17:36 Gram Stain - Preliminary Trachasp Lab Studies 08/17/17 08/17/17 08/17/17 Range/Units 06:12 06:12 06:12 WBC 15.4 H (4.8-10.8) K/uL RBC 4.04 L (4.40-5.90) Mil/uL Hgb 9.3 L (12.0-18.0) g/dL Hct 29.7 L (35.0-51.0) % MCV 73.6 L (80.0-94.0) fL MCH 22.9 L (27.0-31.0) pg MCHC 31.1 L (33.0-37.0) g/dL RDW 22.4 H (11.5-14.5) % Plt Count 340 (130-400) K/uL MPV 9.7 (7.2-11.7) fL Neut % (Auto) 91.9 H (50.0-75.0) % Lymph % (Auto) 3.9 L (20.0-40.0) % Bonner % (Auto) 2.9 (0.0-10.0) % Eos % (Auto) 1.1 (0.0-4.0) % Baso % (Auto) 0.2 (0.0-2.0) % Neut # 14.1 H (1.8-7.0) K/uL Lymph # 0.6 L (1.0-4.3) K/uL Bonner # 0.5 (0.0-0.8) K/uL Eos # 0.2 (0.0-0.7) K/uL Baso # 0.0 (0.0-0.2) K/uL Neutrophils % (Manual) 88 H (50-75) % Band Neutrophils % 1 (0-2) % Lymphocytes % (Manual) 6 L (20-40) % Monocytes % (Manual) 4 (0-10) % Eosinophils % (Manual) 1 (0-4) % Platelet Estimate Normal (NORMAL) Large Platelets Present Giant Platelets Present Hypochromasia (manual) Slight Poikilocytosis (manual Slight Anisocytosis (manual) Slight Microcytosis (manual) Slight Target Cells Slight Tear Drop Cells Slight Ovalocytes Slight APTT 55 H D (21-34) SECONDS Puncture Site pCO2 (35-45) mm/Hg pO2 (80-100) mm/Hg HCO3 (21-28) mmol/L ABG pH (7.35-7.45) ABG Total CO2 (22-28) mmol/L ABG O2 Saturation (95-98) % ABG Base Excess (-2.0-3.0) mmol/L ABG Hemoglobin (11.7-17.4) g/dL ABG Carboxyhemoglobin (0.5-1.5) % POC ABG HHb (Measured) (0.0-5.0) % ABG Methemoglobin (0.0-3.0) % Uriel Test A-a O2 Difference mm/Hg Respiratory Index Hgb O2 Saturation (95.0-98.0) % Vent Mode Mechanical Rate FiO2 % Tidal Volume PEEP Sodium 141 (132-148) mmol/L Potassium 4.2 (3.6-5.2) mmol/L Chloride 102 (98-107) mmol/L Carbon Dioxide 28 (22-30) mmol/L Anion Gap 16 (10-20) BUN 56 H (9-20) mg/dL Creatinine 2.9 H (0.8-1.5) MG/DL Est GFR ( Amer) 26 Est GFR (Non-Af Amer) 21 POC Glucose (mg/dL) (65-110) mg/dL Random Glucose 234 H (75-110) mg/dL Calcium 7.9 L (8.6-10.4) mg/dl Phosphorus 5.0 H (2.5-4.5) mg/dL Magnesium 2.4 H (1.6-2.3) mg/dL Total Bilirubin 0.6 (0.2-1.3) mg/dL AST 115 H (17-59) U/L ALT 71 (21-72) U/L Alkaline Phosphatase 133 H (38-126) U/L Total Protein 6.4 (6.3-8.3) g/dL Albumin 3.1 L (3.5-5.0) g/dL Globulin 3.3 (2.2-3.9) gm/dL Albumin/Globulin Ratio 0.9 L (1.0-2.1) 08/17/17 08/17/17 08/16/17 Range/Units 05:31 05:07 23:58 WBC (4.8-10.8) K/uL RBC (4.40-5.90) Mil/uL Hgb (12.0-18.0) g/dL Hct (35.0-51.0) % MCV (80.0-94.0) fL MCH (27.0-31.0) pg MCHC (33.0-37.0) g/dL RDW (11.5-14.5) % Plt Count (130-400) K/uL MPV (7.2-11.7) fL Neut % (Auto) (50.0-75.0) % Lymph % (Auto) (20.0-40.0) % Bonner % (Auto) (0.0-10.0) % Eos % (Auto) (0.0-4.0) % Baso % (Auto) (0.0-2.0) % Neut # (1.8-7.0) K/uL Lymph # (1.0-4.3) K/uL Bonner # (0.0-0.8) K/uL Eos # (0.0-0.7) K/uL Baso # (0.0-0.2) K/uL Neutrophils % (Manual) (50-75) % Band Neutrophils % (0-2) % Lymphocytes % (Manual) (20-40) % Monocytes % (Manual) (0-10) % Eosinophils % (Manual) (0-4) % Platelet Estimate (NORMAL) Large Platelets Giant Platelets Hypochromasia (manual) Poikilocytosis (manual Anisocytosis (manual) Microcytosis (manual) Target Cells Tear Drop Cells Ovalocytes APTT (21-34) SECONDS Puncture Site R rad pCO2 44 (35-45) mm/Hg pO2 70 L (80-100) mm/Hg HCO3 27.1 (21-28) mmol/L ABG pH 7.41 (7.35-7.45) ABG Total CO2 29.3 H (22-28) mmol/L ABG O2 Saturation 96.5 (95-98) % ABG Base Excess 2.9 (-2.0-3.0) mmol/L ABG Hemoglobin 9.3 L (11.7-17.4) g/dL ABG Carboxyhemoglobin 2.2 H (0.5-1.5) % POC ABG HHb (Measured) 3.4 (0.0-5.0) % ABG Methemoglobin 0.9 (0.0-3.0) % Uriel Test Pos A-a O2 Difference 588.0 mm/Hg Respiratory Index 8.4 Hgb O2 Saturation 93.5 L (95.0-98.0) % Vent Mode Prvc Mechanical Rate 10 FiO2 100.0 % Tidal Volume 500 PEEP 8 Sodium (132-148) mmol/L Potassium (3.6-5.2) mmol/L Chloride (98-107) mmol/L Carbon Dioxide (22-30) mmol/L Anion Gap (10-20) BUN (9-20) mg/dL Creatinine (0.8-1.5) MG/DL Est GFR ( Amer) Est GFR (Non-Af Amer) POC Glucose (mg/dL) 261 H 245 H (65-110) mg/dL Random Glucose (75-110) mg/dL Calcium (8.6-10.4) mg/dl Phosphorus (2.5-4.5) mg/dL Magnesium (1.6-2.3) mg/dL Total Bilirubin (0.2-1.3) mg/dL AST (17-59) U/L ALT (21-72) U/L Alkaline Phosphatase (38-126) U/L Total Protein (6.3-8.3) g/dL Albumin (3.5-5.0) g/dL Globulin (2.2-3.9) gm/dL Albumin/Globulin Ratio (1.0-2.1) 08/16/17 08/16/17 Range/Units 17:32 11:31 WBC (4.8-10.8) K/uL RBC (4.40-5.90) Mil/uL Hgb (12.0-18.0) g/dL Hct (35.0-51.0) % MCV (80.0-94.0) fL MCH (27.0-31.0) pg MCHC (33.0-37.0) g/dL RDW (11.5-14.5) % Plt Count (130-400) K/uL MPV (7.2-11.7) fL Neut % (Auto) (50.0-75.0) % Lymph % (Auto) (20.0-40.0) % Bonner % (Auto) (0.0-10.0) % Eos % (Auto) (0.0-4.0) % Baso % (Auto) (0.0-2.0) % Neut # (1.8-7.0) K/uL Lymph # (1.0-4.3) K/uL Bonner # (0.0-0.8) K/uL Eos # (0.0-0.7) K/uL Baso # (0.0-0.2) K/uL Neutrophils % (Manual) (50-75) % Band Neutrophils % (0-2) % Lymphocytes % (Manual) (20-40) % Monocytes % (Manual) (0-10) % Eosinophils % (Manual) (0-4) % Platelet Estimate (NORMAL) Large Platelets Giant Platelets Hypochromasia (manual) Poikilocytosis (manual Anisocytosis (manual) Microcytosis (manual) Target Cells Tear Drop Cells Ovalocytes APTT (21-34) SECONDS Puncture Site pCO2 (35-45) mm/Hg pO2 (80-100) mm/Hg HCO3 (21-28) mmol/L ABG pH (7.35-7.45) ABG Total CO2 (22-28) mmol/L ABG O2 Saturation (95-98) % ABG Base Excess (-2.0-3.0) mmol/L ABG Hemoglobin (11.7-17.4) g/dL ABG Carboxyhemoglobin (0.5-1.5) % POC ABG HHb (Measured) (0.0-5.0) % ABG Methemoglobin (0.0-3.0) % Uriel Test A-a O2 Difference mm/Hg Respiratory Index Hgb O2 Saturation (95.0-98.0) % Vent Mode Mechanical Rate FiO2 % Tidal Volume PEEP Sodium (132-148) mmol/L Potassium (3.6-5.2) mmol/L Chloride (98-107) mmol/L Carbon Dioxide (22-30) mmol/L Anion Gap (10-20) BUN (9-20) mg/dL Creatinine (0.8-1.5) MG/DL Est GFR ( Amer) Est GFR (Non-Af Amer) POC Glucose (mg/dL) 146 H 233 H (65-110) mg/dL Random Glucose (75-110) mg/dL Calcium (8.6-10.4) mg/dl Phosphorus (2.5-4.5) mg/dL Magnesium (1.6-2.3) mg/dL Total Bilirubin (0.2-1.3) mg/dL AST (17-59) U/L ALT (21-72) U/L Alkaline Phosphatase (38-126) U/L Total Protein (6.3-8.3) g/dL Albumin (3.5-5.0) g/dL Globulin (2.2-3.9) gm/dL Albumin/Globulin Ratio (1.0-2.1) Laboratory Results - last 24 hr 08/16/17 08/16/17 08/16/17 11:31 17:32 23:58 WBC RBC Hgb Hct MCV MCH MCHC RDW Plt Count MPV Neut % (Auto) Lymph % (Auto) Bonner % (Auto) Eos % (Auto) Baso % (Auto) Neut # Lymph # Bonner # Eos # Baso # Neutrophils % (Manual) Band Neutrophils % Lymphocytes % (Manual) Monocytes % (Manual) Eosinophils % (Manual) Platelet Estimate Large Platelets Giant Platelets Hypochromasia (manual) Poikilocytosis (manual Anisocytosis (manual) Microcytosis (manual) Target Cells Tear Drop Cells Ovalocytes APTT Puncture Site pCO2 pO2 HCO3 ABG pH ABG Total CO2 ABG O2 Saturation ABG Base Excess ABG Hemoglobin ABG Carboxyhemoglobin POC ABG HHb (Measured) ABG Methemoglobin Uriel Test A-a O2 Difference Respiratory Index Hgb O2 Saturation Vent Mode Mechanical Rate FiO2 Tidal Volume PEEP Sodium Potassium Chloride Carbon Dioxide Anion Gap BUN Creatinine Est GFR ( Amer) Est GFR (Non-Af Amer) POC Glucose (mg/dL) 233 H 146 H 245 H Random Glucose Calcium Phosphorus Magnesium Total Bilirubin AST ALT Alkaline Phosphatase Total Protein Albumin Globulin Albumin/Globulin Ratio 08/17/17 08/17/17 08/17/17 05:07 05:31 06:12 WBC 15.4 H RBC 4.04 L Hgb 9.3 L Hct 29.7 L MCV 73.6 L MCH 22.9 L MCHC 31.1 L RDW 22.4 H Plt Count 340 MPV 9.7 Neut % (Auto) 91.9 H Lymph % (Auto) 3.9 L Bonner % (Auto) 2.9 Eos % (Auto) 1.1 Baso % (Auto) 0.2 Neut # 14.1 H Lymph # 0.6 L Bonner # 0.5 Eos # 0.2 Baso # 0.0 Neutrophils % (Manual) 88 H Band Neutrophils % 1 Lymphocytes % (Manual) 6 L Monocytes % (Manual) 4 Eosinophils % (Manual) 1 Platelet Estimate Normal Large Platelets Present Giant Platelets Present Hypochromasia (manual) Slight Poikilocytosis (manual Slight Anisocytosis (manual) Slight Microcytosis (manual) Slight Target Cells Slight Tear Drop Cells Slight Ovalocytes Slight APTT Puncture Site R rad pCO2 44 pO2 70 L HCO3 27.1 ABG pH 7.41 ABG Total CO2 29.3 H ABG O2 Saturation 96.5 ABG Base Excess 2.9 ABG Hemoglobin 9.3 L ABG Carboxyhemoglobin 2.2 H POC ABG HHb (Measured) 3.4 ABG Methemoglobin 0.9 Uriel Test Pos A-a O2 Difference 588.0 Respiratory Index 8.4 Hgb O2 Saturation 93.5 L Vent Mode Prvc Mechanical Rate 10 FiO2 100.0 Tidal Volume 500 PEEP 8 Sodium Potassium Chloride Carbon Dioxide Anion Gap BUN Creatinine Est GFR ( Amer) Est GFR (Non-Af Amer) POC Glucose (mg/dL) 261 H Random Glucose Calcium Phosphorus Magnesium Total Bilirubin AST ALT Alkaline Phosphatase Total Protein Albumin Globulin Albumin/Globulin Ratio 08/17/17 08/17/17 06:12 06:12 WBC RBC Hgb Hct MCV MCH MCHC RDW Plt Count MPV Neut % (Auto) Lymph % (Auto) Bonner % (Auto) Eos % (Auto) Baso % (Auto) Neut # Lymph # Bonner # Eos # Baso # Neutrophils % (Manual) Band Neutrophils % Lymphocytes % (Manual) Monocytes % (Manual) Eosinophils % (Manual) Platelet Estimate Large Platelets Giant Platelets Hypochromasia (manual) Poikilocytosis (manual Anisocytosis (manual) Microcytosis (manual) Target Cells Tear Drop Cells Ovalocytes APTT 55 H D Puncture Site pCO2 pO2 HCO3 ABG pH ABG Total CO2 ABG O2 Saturation ABG Base Excess ABG Hemoglobin ABG Carboxyhemoglobin POC ABG HHb (Measured) ABG Methemoglobin Uriel Test A-a O2 Difference Respiratory Index Hgb O2 Saturation Vent Mode Mechanical Rate FiO2 Tidal Volume PEEP Sodium 141 Potassium 4.2 Chloride 102 Carbon Dioxide 28 Anion Gap 16 BUN 56 H Creatinine 2.9 H Est GFR ( Amer) 26 Est GFR (Non-Af Amer) 21 POC Glucose (mg/dL) Random Glucose 234 H Calcium 7.9 L Phosphorus 5.0 H Magnesium 2.4 H Total Bilirubin 0.6 AST 115 H ALT 71 Alkaline Phosphatase 133 H Total Protein 6.4 Albumin 3.1 L Globulin 3.3 Albumin/Globulin Ratio 0.9 L Fingerstick Blood Sugar Results: 105 Review of Systems - Review of Systems Systems not reviewed;Unavailable: Intubated Critical Care Progress Note - Ventilator Checklist Head of Bed 30 Degrees: Yes Daily Assessment of Readiness to Wean: Yes PUD Prophalyxis: Yes DVT Prophylaxis: Yes - Vent Settings MODE:: PRVC TIDAL VOLUME:: 500 RESP RATE:: 10 FIO2:: 100 PEEP:: 8 - Extremities/Vascular Does the Patient have a Central Venous Catheter?: Yes Insertion Site: Internal Jugular Vein Does the Patient need a Central Venous Catheter?: Yes Does the Patient have a Jaquez Catheter?: Yes Does the Patient need a Jaquez Catheter?: Yes Catheter Insertion Criteria: Need for accurate measurement of output in critically ill patient - Restraints Justification for Restraints: High risk for self extubation - Prophylaxis GI Prophylaxis GI: Pepsid - Prophylaxis DVT Prophylaxis DVT: Lovenox - Nutrition Nutrition: Nutrition Category Date Time Status Heart Healthy Diet [DIET] Diets 08/09/17 Lunch Active Assessment/Plan - Assessment and Plan (Free Text) Assessment: Assessment: 77 yo M admitted to ICU from floors, patient was to get CT scan and had respiratory distress, a code blue was called and patient was transferred to ICU and intubated. Today (08/17): Patient is on Vent, will receive HD today. Heparin was stopped and started on Lovenox 30mg QD. Neuro: Sedated with propofol drip. Pulm: acute respiratory failure in severe ARDS. CT chest shows large right pleural effusion, consulted IR for pigtail placement (pneumothorax risk is high , so pigtail placement would be safest). Patient is showing slow improvement using lung protective strategy from [facility]DS[employer] protocol. CV: NSTEMI on Lovenox, metoprolol po qd, nifedipine po q8h. Hem: aspirin, plavix, lovenox, holding eliquis. Renal: ALIREZA, Lasix 60mg IV q12h, becoming less effective, urine output decreasing. patient will most likely need dialysis, will discuss with [facility]. Endo: DM type 2, on insulin sliding scale for coverage GI: no recent BM's, Started Senna/Colace and enema. No obstruction seen on CT abdomen. ID: severe sepsis from pneumonia, continue Meropenem 500mg (started 08/14). DVT proph - Lovenox 30mg sc qd GI proph - pepcid jaquez for strict I/O's during acute illness Code status - full code
[2017-08-17] MEDS: Metoprolol Succinate 50 mg XL Tab PO SCH (13:29)
[2017-08-17] MEDS: Docusate-Senna 50 mg-8.6 mg Tab PO SCH ×2 (13:29→18:32)
[2017-08-17] MEDS: Enoxaparin 30 mg Syringe SC SCH (13:30)
[2017-08-17] MEDS: Lactobacillus Acidophilus 500 MU Cap PO SCH ×2 (13:30→18:32)
[2017-08-17] MEDS: Meropenem 500 MG in Sodium Chloride 0.9% 100 ML IVPB SCH ×2 (13:32→22:00)
--- NOTE | 2017-08-17 13:42 | RAD ---
HISTORY: intubated COMPARISON: Chest x-ray performed 08/16/17 TECHNIQUE: Chest, one view. FINDINGS: Examination limited by habitus. Endotracheal tube terminates approximately 6.4 cm above the noris. Nasogastric tube extends expected location of the stomach. Right IJ approach central venous catheter extends to the SVC. LUNGS: Re-identified bilateral upper lobe/hilar consolidations. Left lower lobe consolidation persists, decreased since prior study. Prominent tissue markings may reflect infection or edema. Small bilateral pleural effusions. Biapical pleural thickening with upper lobe granulomatous changes. No definite pneumothorax . CARDIOVASCULAR: Cardiomegaly. Single lead left-sided AICD. OSSEOUS STRUCTURES: Osseous demineralization. Degenerative changes. VISUALIZED UPPER ABDOMEN: Unremarkable. OTHER FINDINGS: None. IMPRESSION: Endotracheal tube terminates approximately 6.4 cm above the noris. Nasogastric tube extends expected location of the stomach. Right IJ approach central venous catheter extends to the SVC. Re-identified bilateral upper lobe/hilar consolidations. Left lower lobe consolidation persists, decreased since prior study. Prominent tissue markings may reflect infection or edema. Small bilateral pleural effusions. Biapical pleural thickening with upper lobe granulomatous changes. Cardiomegaly. Single lead AICD.
--- NOTE | 2017-08-17 13:46 | CP.PCM.PN ---
Subjective - Date & Time of Evaluation Date of Evaluation: 08/17/17 Time of Evaluation: 13:43 - Subjective Subjective: s/p dialysis last 2 days [id number] remains on vent, sedated Objective - Vital Signs/Intake and Output Vital Signs (last 24 hours): Temp Pulse Resp BP Pulse Ox 99 F 83 21 113/43 L 100 08/17/17 12:16 08/17/17 12:16 08/17/17 12:16 08/17/17 12:16 08/17/17 12:16 Intake and Output: 08/17/17 08/17/17 06:59 18:59 Intake Total 1131.6 364.9 Output Total 235 115 Balance 896.6 249.9 - Medications Medications: Current Medications Acetaminophen (Tylenol 650mg/20.3ml Solution Ud) 650 mg PO Q6 PRN PRN Reason: Temperature Last Admin: 08/16/17 12:31 Dose: 650 mg Aspirin (Aspirin Chewable) 81 mg PO DAILY [facility] Last Admin: 08/17/17 13:29 Dose: 81 mg Clopidogrel Bisulfate (Plavix) 75 mg PO DAILY [facility] Last Admin: 08/17/17 13:29 Dose: 75 mg Enoxaparin Sodium (Lovenox) 30 mg SC DAILY [facility] Last Admin: 08/17/17 13:30 Dose: 30 mg Famotidine (Pepcid) 20 mg PO DAILY [facility] Last Admin: 08/17/17 13:30 Dose: 20 mg Propofol (Diprivan) 1,000 mg in 100 mls @ 2.844 mls/hr IV .Q24H PRN; Protocol; 5 MCG/KG/MIN PRN Reason: TITRATE PER MD ORDER Last Admin: 08/17/17 11:30 Dose: 29.88 mcg/kg/min, 16.996 mls/hr Meropenem 500 mg/ Sodium (Chloride) 100 mls @ 100 mls/hr IVPB Q12 [facility] Last Admin: 08/17/17 13:32 Dose: 100 mls/hr Insulin Aspart (Novolog) 0 unit SC Q6H LUIS FERNANDO PRN Reason: Protocol Last Admin: 08/17/17 13:31 Dose: 4 unit Insulin Glargine (Lantus) 10 unit SC [facility] Last Admin: 08/16/17 23:00 Dose: 10 u Ipratropium [place] (Atrovent) 0.5 mg IH RQ6 PRN PRN Reason: Shortness of Breath Last Admin: 08/15/17 08:07 Dose: 0.5 mg Lactobacillus Acidophilus (Bacid Acidophilus) 1 cap PO BID [facility] Last Admin: 08/17/17 13:30 Dose: 1 cap Lorazepam (Ativan) 1 mg IVP Q2H PRN PRN Reason: Agitation Last Admin: 08/12/17 15:20 Dose: 1 mg Metoprolol Succinate (Toprol Xl) 50 mg PO DAILY [facility] Last Admin: 08/17/17 13:29 Dose: 50 mg Midazolam HCl (Versed Inj) 2 mg IVP Q4H PRN PRN Reason: Anxiety Rosuvastatin Calcium (Crestor) 10 mg PO HS [facility] Last Admin: 08/16/17 23:00 Dose: 10 mg Senna/Docusate Sodium (Senokot S 50 Mg-8.6 Mg) 1 tab PO BID [facility] Last Admin: 08/17/17 13:29 Dose: 1 tab - Labs Labs: 08/17/17 06:12 08/17/17 06:12 PT 13.0 SECONDS (9.7-12.2) H 08/09/17 23:23 INR 1.2 08/09/17 23:23 APTT 55 SECONDS (21-34) H D 08/17/17 06:12 - Constitutional Appears: In Acute Distress, Chronically Ill - Head Exam Head Exam: ATRAUMATIC, NORMAL INSPECTION - Eye Exam Eye Exam: EOMI, Normal appearance - Neck Exam Neck Exam: Normal Inspection. absent: Tenderness - Respiratory Exam Respiratory Exam: Rhonchi, Respiratory Distress - Cardiovascular Exam Cardiovascular Exam: REGULAR RHYTHM, +S1 - GI/Abdominal Exam GI & Abdominal Exam: Soft. absent: Tenderness - Extremities Exam Extremities Exam: Normal Inspection. absent: Pedal Edema - Neurological Exam Neurological Exam: Altered, CN II-XII Intact - Skin Skin Exam: Dry, Warm Assessment and Plan (1) Acute on chronic renal failure Status: Acute (2) CAD (coronary artery disease) Status: Acute (3) CHF exacerbation Status: Chronic (4) Type 2 diabetes mellitus with diabetic nephropathy Status: Acute (5) CKD stage 4 due to type 2 diabetes mellitus Status: Acute (6) Cardiorenal disease Status: Acute - Assessment and Plan (Free Text) Plan: Repeat dialysis today as CXR still with CHF pattern follow up chemistries closely
[2017-08-17] MEDS: EPOETIN ALFA 10,000 UNIT/ML ML IV SCH (18:23)
--- NOTE | 2017-08-17 18:54 | CP.PCM.PN ---
Subjective - Date & Time of Evaluation Date of Evaluation: 08/17/17 Time of Evaluation: 18:45 - Subjective Subjective: Hospitalist Progress Note Patient was seen and examined at 6:30 PM 08/17/17 ICU Bed #5. 77 year old male with extensive medical history (please see Assessment and Plans below) was admitted on 08/06/17 for evaluation of SOB and Chest Pain. He was planned for Cardiac Catheterization on 08/09/17 due to his elevated Cr. Patient then had Acute Respiratory Failure and had to be intubated and placed on vent. Please see details below. ROS are not possible as patient is currently intubated/on ventilator. Exam: - Head Exam Head Exam: NORMAL INSPECTION - Eye Exam Eye Exam: could not evaluate EOM due to patient's current status Pupil Exam: round, equal, and reactive to light - Respiratory Exam Respiratory Exam: Decreased Breath Sounds however course breath sounds throughout Additional comments: intubated on vent - Cardiovascular Exam Cardiovascular Exam: REGULAR RHYTHM, +S1, +S2 - GI/Abdominal Exam GI & Abdominal Exam: Distended, Soft, Normal Bowel Sounds, could not palpate liver and spleen. absent: Firm, Guarding, Rigid, Tenderness, Rebound Additional comments: obese habitus - Extremities Exam Extremities Exam: Normal Capillary Refill, Pedal Edema. absent: Tenderness Additional comments: Prevalon boots b/l - Neurological Exam Additional comments: sedated - Skin Skin Exam: Dry, Normal Color, Warm Assessment and Plan - Assessment and Plan (Free Text) Assessment: (1) Acute Respiratory Failure ARDS Cardiac Arrest Pulmonary Edema NONSTEMI Assessment and Plan: * Code Blue on 08/10: asystole, cardiopulmonary resuscitative measures initiated , requiring 3 epis, bicarbonate, ROSC achieved and intubated and brought to the ICU for further management * 08/10: Central line placed by ICU; placed on tridil drip; heparin drip c/w * 08/11: Patient placed on Lasix IV. On heparin drip. No plans for cardiac cath at time time. Chest Xray (08/11/17): NG tube extending into the stomach. Endotracheal tube extending into the mild thoracic trachea. Left sided pacemaker. multiple overlying external wires and tubing, Moderate severe venous congestion with prominent confluent airspace opacities in the mid to lower lung zones with associated small to moderate bilateral pleural effusions. scattered nodular densities in both lungs. Cardiomegaly. Degenerative changes in the spine and shoulders. * 08/12: Chest xray (08/12/17): right basilar opacity. Small right pleural effusion. Lines and tubes unchanged.-->C/w Lasix. Discussed with Dr. Mena (pulm) , recommended for CT Chest w/o contrast for possible ARDS. increased peep 10 * 08/13: pending chest /abdomen xray for this morning; self-extubated and reintubated overnight; off tridil drip secondary to hypotension post intubation ; on heparin drip * CT Chest/Abdomen/Pelvis (08/13): moderate to large bilateral pleural effusions largeer on thr right associated with atelectasis at lower lobes. Nonspecific ground-glass opacities in the upper lobe new may be due to pulmonary vascular congestion. moderately cardiomegaly. No evidence of bowel obstruction. Moderately to markedly enlarged prostate. nonobstructing calculus at mid to lower pole left kidney. Gallstone without evidence of cholecystitis. Scattered diverticulosis without evidence of diverticulitis * 08/14: CT Chest-->loculated pleural effusion--> ICU recommend for IR Pigtail given high risk of pneumothorax: I do not see that a Pigtail Catheter has been placed and will speak with IR 08/18/17 (2) Chest pain Assessment and Plan: * Cardiology (Dr. Cortés) on board-->help appreciated * All trops WNL; Troponin positive in light of CPR * EKG x2 = Sinus tachycardia notes with possible left atrial enlargement; no apparent T segment elevations in contiguous leads * Heparin drip restarted * Patient's cardiac catherization cancelled secondary to rise in creatinine (2.3 ) on 08/09/17. * Patient has hx of abnormal stress test. Discussed with cardiology and nephrology given change in Cr on 08/09. * Echocardiogram (08/08/17): left ventricle systolic function is severely impaired. EF: 25-30%; global hypokinesis of left ventricle mild aortic regurgitation. Mitral regurgitation is moderate. Moderate-severe pulmonary hypertesnion * Hx of ACID * on Heparin drip * Aspirin 81mg PO daily * Plavix 75mg PO daily * Lasix 60mg IV Q 12hours * Crestor 10mg POqHS * Metoprolol Succinate 50mg PO daily * Off Arb secondary to ARF * TSH: 1.16; T4: 1.53 (3) Acute Systolic CHF exacerbation Assessment and Plan: * Transferred to the ICU on 08/10 following cardiac arrest and intubation. * Echocardiogram (08/08/17): left ventrcile systolic function is severely impaired. EF: 25-30%; global hypokinesis of left ventricle mild aortic regurgitation. Mitral regurgitation is moderate. Moderate-severe pulmonary hypertension * Height of bed at 45 degrees, Strict ins and outs, monitor daily weights * Lasix 60mg IV Q 12hours * Aspirin 81mg PO daily * Plavix 75mg PO daily * Crestor 10mg POqHS * Metoprolol Succinate 50mg PO daily * Off Arb secondary to ARF * Has been receiving HD 08/16/17 and 07/2017 to help reduce the pulmonary congestion Status: Acute (4) Pneumonia Assessment and Plan: * Pulmonary (Dr. Mena) on board-->help appreciated * Infectious Disease (Dr. Lawrence)-->help appreciated * Rapid A strep, Influenza A and B studies, Urine Legionella, Mycoplasma studies = Negative * Florastor 250mg PO bid * +Strep Pneumoniae in the urine * 08/12: Will repeat urine studies and exchange out the jaquez * 08/13: Off Rocephin; start Zosyn 2.25 IV Q 8 hours; f/u urine studies * 08/15: Started on Meropenem 500mg IV Q 8 hours (active since 08/14/17) * 08/17: CXR shows left lower lobe consolidation has decreased Status: Acute (5) CAD (coronary artery disease) Assessment and Plan: * Hx of cardiac stent in the past * Heparin Drip * Cardiac cath on hold given events on 08/10 Status: Acute (6) HTN (hypertension) Assessment and Plan: * Metoprolol XL 50 mg PO 1x/day Status: Chronic (7) CKD (chronic kidney disease) Assessment and Plan: * Dr. Miranda (nephrology) consulted on the case * Hx of CKD * GFR 45 which appears to be around baseline * Stopped ARB given rise in CR * Off IV fluids given pulmonary edema * Lasix 60mg IV Q 12hours * Monitor in and output: has not been producing significant amount of urine and HD was recommended by Nephrology * Receiving HD through Left Femoral Catheter Status: Acute (8) Diabetes mellitus Assessment and Plan: * Accuchecks Q6H * A1c 8.4 * Start Lantus 10 units subqHS * Novolog insuling sliding sub6H Status: Chronic (9) HLD (hyperlipidemia) Assessment and Plan: * On Crestor 10 mg Po HS Status: Chronic (10) Constipation Assessment and Plan: * Having bowel movements per nursing notes (08/14/17) * Colace 100mg PO TID * 08/12: Will given ducolax suppository X1 * 08/13: has not had bowel movement; ordered for abdominal/chest xray in light of abdominal distension * CT Chest/Abdomen/Pelvis (08/13): moderate to large bilateral pleural effusions largeer on thr right associated with atelectasis at lower lobes. Nonspecific ground-glass opacities in the upper lobe new may be due to pulmonary vascular congestion. moderately cardiomegaly. No evidence of bowel obstruction. Moderately to markedly enlarged prostate. nonobstructing calculus at mid to lower pole left kidney. Gallstone without evidence of cholecystitis. Scattered diverticulosis without evidence of diverticulitis * 08/14: Patient is not obstructed per review CT scan Status: Chronic (11) Anemia Assessment and Plan: * Heme-oncology (Dr. Giles bender) on board-->help appreciated * Likely iron deficiency anemia based on prior admissions * Ferritin 27.4, Iron 22, TIBC 322, % Saturation 7 * Ferric Sodium Gluconate 125mg IVPB daily (active 08/08-08/16) * Monitor Hgb/Hct Status: Chronic (12) History of DVT (deep vein thrombosis) Assessment and Plan: * Patient was previously on Eliquis for a prior history of DVT. * Repeat dopplers are negative for DVT * On Heparin Drip Status: Acute (13) UTI * Infectious disease (Dr. Lawrence) on board-->help appreciated * Exchange jaquez out and repeat urine cultures * Urine Culture 08/12/17 showed Gram Negative Rods: follow up identification and sensitivities * Meropenem 500mg IV Q 12hours (active since 08/14/17) to cover for UTI per ID (14) Confusion; Alzheimer's Dementia Assessment and Plan: * Per daughter, patient has been getting bouts of confusion over the past year but appears at baseline. Patient has not seen formal neurology as outpatient per daughter. Per , prior to event, noted Alzheimers' disease dx one year ago * CT head w/o contrast (08/10/17):acute os subacute lacune infarct is not excluded in the left basal ganglia inferiorly with definitive chronic lacune identified in the right basal ganglia superiorly. No acute or subacute lobar brain infarction is appreciable by standard CT criteria. Mild age-related neuro degenerative changes are identifed. No acute intracranial hemorrhage or mass is identified throughout * 08/11: Patient gets agitated and will fight to pull the intubation tube out per nursing. Was placed on sedation and Ativan PRN * 08/12: patient is responsive to questions, able to move all extremities, off sedation. Patient is on PRN Versed and Ativan PRN. Will respond to yes and no questions * 08/13: Back on sedation since reintubation; patient is moving all extremities * 08/14: Is on sedation (15) Prophylactic measure Assessment and Plan: * Pepcid 20mg PO daily * On Heparin Drip * Glucerna 1.5 at 40 ml/hour via NGT * Bacid 1 cap NGT 2x/day * Atrovent Q6H PRN * Tylenol 650 mg PO Q6H PRN Temperature Cullen Barth D.O. Objective - Vital Signs/Intake and Output Vital Signs (last 24 hours): Temp Pulse Resp BP Pulse Ox 98.6 F 83 20 120/50 L 99 08/17/17 16:00 08/17/17 18:23 08/17/17 18:23 08/17/17 18:23 08/17/17 18:23 Intake and Output: 08/17/17 08/17/17 06:59 18:59 Intake Total 1131.6 1020.9 Output Total 235 275 Balance 896.6 745.9 - Medications Medications: Current Medications Acetaminophen (Tylenol 650mg/20.3ml Solution Ud) 650 mg PO Q6 PRN PRN Reason: Temperature Last Admin: 08/16/17 12:31 Dose: 650 mg Aspirin (Aspirin Chewable) 81 mg PO DAILY [facility] Last Admin: 08/17/17 13:29 Dose: 81 mg Clopidogrel Bisulfate (Plavix) 75 mg PO DAILY [facility] Last Admin: 08/17/17 13:29 Dose: 75 mg Enoxaparin Sodium (Lovenox) 30 mg SC DAILY [facility] Last Admin: 08/17/17 13:30 Dose: 30 mg Epoetin [place] (Procrit) 10,000 [place] IV [facility] [place] Admin: 08/17/17 18:23 Dose: Not Given Famotidine (Pepcid) 20 mg PO DAILY [facility] Last Admin: 08/17/17 13:30 Dose: 20 mg Propofol (Diprivan) 1,000 mg in 100 mls @ 2.844 mls/hr IV .Q24H PRN; Protocol; 5 MCG/KG/MIN PRN Reason: TITRATE PER MD ORDER Last Admin: 08/17/17 18:00 Dose: 29.88 mcg/kg/min, 16.996 mls/hr Meropenem 500 mg/ Sodium (Chloride) 100 mls @ 100 mls/hr IVPB Q12 [facility] Last Admin: 08/17/17 13:32 Dose: 100 mls/hr Insulin Aspart (Novolog) 0 unit SC Q6H [facility]IS FERNANDO PRN Reason: Protocol Last Admin: 08/17/17 18:33 Dose: 4 unit Insulin Glargine (Lantus) 10 unit SC [facility] Last Admin: 08/16/17 23:00 Dose: 10 u Ipratropium [place] (Atrovent) 0.5 mg IH RQ6 PRN PRN Reason: Shortness of Breath Last Admin: 08/15/17 08:07 Dose: 0.5 mg Lactobacillus Acidophilus (Bacid Acidophilus) 1 cap PO BID [facility] Last Admin: 08/17/17 18:32 Dose: 1 cap Metoprolol Succinate (Toprol Xl) 50 mg PO DAILY [facility] Last Admin: 08/17/17 13:29 Dose: 50 mg Midazolam HCl (Versed Inj) 2 mg IVP Q4H PRN PRN Reason: Anxiety Rosuvastatin Calcium (Crestor) 10 mg PO [facility] Last Admin: 08/16/17 23:00 Dose: 10 mg Senna/Docusate Sodium (Senokot S 50 Mg-8.6 Mg) 1 tab PO BID [facility] Last Admin: 08/17/17 18:32 Dose: 1 tab - Labs Labs: 08/17/17 06:12 08/17/17 06:12 PT 13.0 SECONDS (9.7-12.2) H 08/09/17 23:23 INR 1.2 08/09/17 23:23 APTT 55 SECONDS (21-34) H D 08/17/17 06:12
--- NOTE | 2017-08-17 21:06 | CP.PCM.PN ---
Subjective - Date & Time of Evaluation Date of Evaluation: 08/17/17 Time of Evaluation: 06:00 - Subjective Subjective: dictated Objective - Vital Signs/Intake and Output Vital Signs (last 24 hours): Temp Pulse Resp BP Pulse Ox 98.6 F 83 20 120/50 L 99 08/17/17 16:00 08/17/17 18:23 08/17/17 18:23 08/17/17 18:23 08/17/17 18:23 Intake and Output: 08/17/17 08/18/17 18:59 06:59 Intake Total 1020.9 Output Total 275 Balance 745.9 - Medications Medications: Current Medications Acetaminophen (Tylenol 650mg/20.3ml Solution Ud) 650 mg PO Q6 PRN PRN Reason: Temperature Last Admin: 08/16/17 12:31 Dose: 650 mg Aspirin (Aspirin Chewable) 81 mg PO DAILY [facility] Last Admin: 08/17/17 13:29 Dose: 81 mg Clopidogrel Bisulfate (Plavix) 75 mg PO DAILY [facility] Last Admin: 08/17/17 13:29 Dose: 75 mg Enoxaparin Sodium (Lovenox) 30 mg SC DAILY [facility] Last Admin: 08/17/17 13:30 Dose: 30 mg Epoetin Chen[place] (Procrit) 10,000 unit IV MWF [facility] Last Admin: 08/17/17 18:23 Dose: Not Given Famotidine (Pepcid) 20 mg PO DAILY [facility] Last Admin: 08/17/17 13:30 Dose: 20 mg Propofol (Diprivan) 1,000 mg in 100 mls @ 2.844 mls/hr IV .Q24H PRN; Protocol; 5 MCG/KG/MIN PRN Reason: TITRATE PER MD ORDER Last Admin: 08/17/17 18:00 Dose: 29.88 mcg/kg/min, 16.996 mls/hr Meropenem 500 mg/ Sodium (Chloride) 100 mls @ 100 mls/hr IVPB Q12 [facility] Last Admin: 08/17/17 13:32 Dose: 100 mls/hr Insulin Aspart (Novolog) 0 unit SC Q6H [facility] PRN Reason: Protocol Last Admin: 08/17/17 18:33 Dose: 4 unit Insulin Glargine (Lantus) 10 unit SC [facility] Last Admin: 08/16/17 23:00 Dose: 10 u Ipratropium [place] (Atrovent) 0.5 mg IH RQ6 PRN PRN Reason: Shortness of Breath Last Admin: 08/15/17 08:07 Dose: 0.5 mg Lactobacillus Acidophilus (Bacid Acidophilus) 1 cap PO BID [facility] Last Admin: 08/17/17 18:32 Dose: 1 cap Metoprolol Succinate (Toprol Xl) 50 mg PO DAILY [facility] Last Admin: 08/17/17 13:29 Dose: 50 mg Midazolam HCl (Versed Inj) 2 mg IVP Q4H PRN PRN Reason: Anxiety Rosuvastatin Calcium (Crestor) 10 mg PO HS [facility] Last Admin: 08/16/17 23:00 Dose: 10 mg Senna/Docusate Sodium (Senokot S 50 Mg-8.6 Mg) 1 tab PO BID [facility] Last Admin: 08/17/17 18:32 Dose: 1 tab - Labs Labs: 08/17/17 06:12 08/17/17 06:12 PT 13.0 SECONDS (9.7-12.2) H 08/09/17 23:23 INR 1.2 08/09/17 23:23 APTT 55 SECONDS (21-34) H D 08/17/17 06:12
--- NOTE | 2017-08-17 21:23 | PN ---
DATE: SUBJECTIVE: The patient remains intubated on the vent, he is on dialysis now, he is intubated, he had renal failure, treated for cardiac arrest, and remains unresponsive. PHYSICAL EXAMINATION VITAL SIGNS: T-max 98.6, pulse 76, blood pressure 104/47, respirations 21 to 25. HEENT: Atraumatic, normocephalic. NECK: Supple. LUNGS: Clear, coarse breath sounds. HEART: S1 and S2 is regular. ABDOMEN: Soft, distended though prominent actually. EXTREMITIES: Mild edema present. LABORATORY DATA: Show white count 15.4, hemoglobin 9.3, hematocrit 29.7, platelet count 340. His creatinine is a little better 2.9 and BUN 56. ASSESSMENT AND PLAN: He has acute respiratory failure with cardiac arrest, pulmonary edema, non-STEMI, he also has pulmonary pleural effusion, pneumonia, and is on antibiotics. He also has gram negative in the urine. Sputum culture came out negative. He has pneumococcal antigen positive in the urine so the pneumonia is from the pneumococcus and he remains on meropenem and today is day fourth of meropenem. Allan Lawrence MD
[2017-08-17] MEDS: (Lantus) Insulin Glargine, Recombinant SC SCH (22:00)
--- NOTE | 2017-08-17 22:07 | CP.PCM.PN ---
Subjective - Date & Time of Evaluation Date of Evaluation: 08/17/17 Time of Evaluation: 08:40 - Subjective Subjective: Patient seen and evaluated Intubated and sedated On Dialysis now Recommend full anticoagulation for Hx of DVT Physical Examination - Head Exam Head Exam: ATRAUMATIC, NORMAL INSPECTION - Eye Exam Eye Exam: PERRLA - ENT Exam ENT Exam: Mucous Membranes Moist - Neck Exam Neck Exam: JVD + - Respiratory Exam Respiratory Exam: Clear to Ausculation Bilateral, NORMAL BREATHING PATTERN - Cardiovascular Exam Cardiovascular Exam: +S1, +S2 - GI/Abdominal Exam GI & Abdominal Exam: Soft, Normal Bowel Sounds - Extremities Exam Extremities Exam: Intubated - Neurological Exam Neurological Exam: Intubated and sedated - Skin Skin Exam: Warm Objective - Vital Signs/Intake and Output Vital Signs (last 24 hours): Temp Pulse Resp BP Pulse Ox 98.4 F 82 21 127/56 L 97 08/17/17 20:00 08/17/17 21:07 08/17/17 21:07 08/17/17 21:07 08/17/17 21:07 Intake and Output: 08/17/17 08/18/17 18:59 06:59 Intake Total 1020.9 171 Output Total 275 30 Balance 745.9 141 - Medications Medications: Current Medications Acetaminophen (Tylenol 650mg/20.3ml Solution Ud) 650 mg PO Q6 PRN PRN Reason: Temperature Last Admin: 08/16/17 12:31 Dose: 650 mg Aspirin (Aspirin Chewable) 81 mg PO DAILY [facility] Last Admin: 08/17/17 13:29 Dose: 81 mg Clopidogrel Bisulfate (Plavix) 75 mg PO DAILY [facility] Last Admin: 08/17/17 13:29 Dose: 75 mg Enoxaparin Sodium (Lovenox) 30 mg SC DAILY [facility] Last Admin: 08/17/17 13:30 Dose: 30 mg Epoetin [place] (Procrit) 10,000 unit IV MWF [facility] Last Admin: 08/17/17 18:23 Dose: Not Given Famotidine (Pepcid) 20 mg PO DAILY [facility] Last Admin: 08/17/17 13:30 Dose: 20 mg Propofol (Diprivan) 1,000 mg in 100 mls @ 2.844 mls/hr IV .Q24H PRN; Protocol; 5 MCG/KG/MIN PRN Reason: TITRATE PER MD ORDER Last Admin: 08/17/17 18:00 Dose: 29.88 mcg/kg/min, 16.996 mls/hr Meropenem 500 mg/ Sodium (Chloride) 100 mls @ 100 mls/hr IVPB Q12 [facility] Last Admin: 08/17/17 13:32 Dose: 100 mls/hr Insulin Aspart (Novolog) 0 unit SC Q6H [facility]IS FERNANDO PRN Reason: Protocol Last Admin: 08/17/17 18:33 Dose: 4 unit Insulin Glargine (Lantus) 10 unit SC HS [facility] Last Admin: 08/16/17 23:00 Dose: 10 u Ipratropium [place] (Atrovent) 0.5 mg IH RQ6 PRN PRN Reason: Shortness of Breath Last Admin: 08/15/17 08:07 Dose: 0.5 mg Lactobacillus Acidophilus (Bacid Acidophilus) 1 cap PO BID [facility] Last Admin: 08/17/17 18:32 Dose: 1 cap Metoprolol Succinate (Toprol Xl) 50 mg PO DAILY [facility] Last Admin: 08/17/17 13:29 Dose: 50 mg Midazolam HCl (Versed Inj) 2 mg IVP Q4H PRN PRN Reason: Anxiety Rosuvastatin Calcium (Crestor) 10 mg PO [facility] Last Admin: 08/16/17 23:00 Dose: 10 mg Senna/Docusate Sodium (Senokot S 50 Mg-8.6 Mg) 1 tab PO BID [facility] Last Admin: 08/17/17 18:32 Dose: 1 tab - Labs Labs: 08/17/17 06:12 08/17/17 06:12 PT 13.0 SECONDS (9.7-12.2) H 08/09/17 23:23 INR 1.2 08/09/17 23:23 APTT 55 SECONDS (21-34) H D 08/17/17 06:12
[2017-08-18] MEDS: (Novolog) Insulin Aspart, Recombinant 100 u/ml 10 ml vial SC SCH ×5 (00:04→23:53)
[2017-08-18] MEDS: Propofol 10 mg/ml 1,000 MG/100 ML VIAL IV PRN ×7 (00:05→23:51)
[2017-08-18 01:29] LABS: ABG MECHANICAL RATE 10; ARTERIAL BLOOD GAS MODE PRVC; ATERIAL BLOOD GAS PEEP 8; DRAW SITE RB
[2017-08-18 06:00] LABS: ABG ALLEN TEST POS; ABG MECHANICAL RATE 10; ARTERIAL BLOOD GAS MODE PRVC; ARTERIAL BLOOD HGB O2 SAT 94.2 % (95.0-98.0); ATERIAL BLOOD GAS PEEP 8; CARBOXYHEMOGLOBIN 2.2 % (0.5-1.5); DRAW SITE RR; HHB 2.5 % (0.0-5.0); METHEMOGLOBIN 1.2 % (0.0-3.0)
[2017-08-18 06:23] LABS: BASO # 0.1 K/uL (0.0-0.2); BASO % 0.5 % (0.0-2.0); EOS # 0.7 K/uL (0.0-0.7); HEMATOCRIT 28.8 % (35.0-51.0); LYMPH # 1.5 K/uL (1.0-4.3); LYMPH % 10.7 % (20.0-40.0); MEAN CELL VOLUME 74.1 fL (80.0-94.0); MEAN CORPUSCULAR HEMOGLOBIN 23.1 pg (27.0-31.0); MEAN CORPUSCULAR HGB CONC 31.1 g/dL (33.0-37.0); MEAN PLATELET VOLUME 9.3 fL (7.2-11.7); MONO % 6.9 % (0.0-10.0); NRBC % 0.1 % (0.0-2.0); RED CELL DISTRIBUTION WIDTH 22.5 % (11.5-14.5); WHITE BLOOD COUNT 14.3 K/uL (4.8-10.8)
[2017-08-18 06:48] LABS: POTASSIUM 3.8 mmol/L (3.6-5.2)
[2017-08-18 06:50] LABS: ALB/GLOB RATIO 0.9 (1.0-2.1); BILIRUBIN,TOTAL 0.5 mg/dL (0.2-1.3); TOTAL PROTEIN 6.2 g/dL (6.3-8.3)
[2017-08-18 06:51] LABS: CALCIUM 7.9 mg/dl (8.6-10.4); MAGNESIUM 2.5 mg/dL (1.6-2.3); PHOSPHOROUS 5.7 mg/dL (2.5-4.5)
--- NOTE | 2017-08-18 08:16 | CP.CCUPN ---
<Anton Moore - Last Filed: 08/19/17 08:46> CCU Subjective - Physician Review Subjective (Free Text): Patient seen and examined at bedside. Patient is getting HD today, and is scheduled for a tracheostomy by tomorrow. Patient is intubated, ROS unobtainable. CCU Objective - Vital Signs / Intake & Output Vital Signs (Last 4 hours): Vital Signs Pulse Resp BP Pulse Ox 08/18/17 06:07 82 117/51 L 99 08/18/17 05:07 80 18 118/50 L 98 Intake and Output (Last 8hrs): Intake & Output 08/17/17 08/18/17 08/18/17 22:59 06:59 14:59 Intake Total 656 656 Output Total 90 120 Balance 566 536 Weight 209 lb Intake: IV 100 200 Intake, IV Amount 236 136 Left Hand 100 Right Proximal Port 136 136 Tube Feeding 320 320 Output: Urine 90 120 Urethral (Jaquez) 90 120 - Physical Exam Head: Positive for: Atraumatic, Normocephalic Pupils: Positive for: Sluggish Conjunctiva: Positive for: Normal Pharnyx: Positive for: Normal Respiratory/Chest: Positive for: Decreased Breath Sounds, Other (on vent) Cardiovascular: Positive for: Regular Rate and Rhythm, Normal S1, S2 Abdomen: Positive for: Distention, Normal Bowel Sounds, Other (obese habitus) Skin: Positive for: Warm, Dry Psychiatric: Positive for: Other (sedated) - Medications Active Medications: Active Medications Generic Name Dose Route Start Last Admin Trade Name Freq PRN Reason Stop Dose Admin Acetaminophen 650 mg 08/11/17 17:40 08/16/17 12:31 Tylenol 650mg/20.3ml Solution Ud PO 650 mg Q6 PRN Administration Temperature Aspirin 81 mg 08/14/17 11:15 08/17/17 13:29 Aspirin Chewable PO 81 mg DAILY LUIS FERNANDO Administration Clopidogrel Bisulfate 75 mg 08/12/17 11:00 08/17/17 13:29 Plavix PO 75 mg DAILY LUIS FERNANDO Administration Enoxaparin Sodium 30 mg 08/17/17 10:00 08/17/17 13:30 Lovenox SC 30 mg DAILY LUIS FERNANDO Administration Epoetin Chencho 10,000 unit 08/17/17 14:00 08/17/17 18:23 Procrit IV Not Given MWF LUIS FERNANDO Famotidine 20 mg 08/09/17 10:00 08/17/17 13:30 Pepcid PO 20 mg DAILY LUIS FERNANDO Administration Propofol 1,000 mg in 100 mls @ 2.844 mls/hr 08/12/17 21:00 08/18/17 06:00 Diprivan IV 29.88 mcg/kg/min .Q24H PRN 16.996 mls/hr TITRATE PER MD ORDER Administration Protocol 5 MCG/KG/MIN Meropenem 500 mg/ Sodium 100 mls @ 100 mls/hr 08/14/17 22:00 08/17/17 22:00 Chloride IVPB 100 mls/hr Q12 LUIS FERNANDO Administration Insulin Aspart 0 unit 08/11/17 00:00 08/18/17 06:36 Novolog SC 6 unit Q6H LUIS FERNANDO Administration Protocol Insulin Glargine 10 unit 08/14/17 22:00 08/17/17 22:00 Lantus SC 10 u HS LUIS FERNANDO Administration Ipratropium [place] 0.5 mg 08/07/17 08:47 08/15/17 08:07 Atrovent IH 0.5 mg RQ6 PRN Administration Shortness of Breath Lactobacillus Acidophilus 1 cap 08/13/17 18:00 08/17/17 18:32 Bacid Acidophilus PO 1 cap BID LUIS FERNANDO Administration Metoprolol Succinate 50 mg 08/07/17 13:54 08/17/17 13:29 Toprol Xl PO 50 mg DAILY LUIS FERNANDO Administration Midazolam HCl 2 mg 08/12/17 14:26 Versed Inj IVP Q4H PRN Anxiety Rosuvastatin Calcium 10 mg 08/06/17 22:00 08/17/17 22:00 Crestor PO 10 mg HS LUIS FERNANDO Administration Senna/Docusate Sodium 1 tab 08/13/17 11:30 08/17/17 18:32 Senokot S 50 Mg-8.6 Mg PO 1 tab BID LUIS FERNANDO Administration - Patient Studies Lab Studies: Microbiology Studies 08/14/17 17:36 Gram Stain - Final Trachasp Sputum Culture - Final NORMAL ORAL SILVIA Lab Studies 08/18/17 08/18/17 08/18/17 Range/Units 06:16 06:16 05:45 WBC 14.3 H (4.8-10.8) K/uL RBC 3.88 L (4.40-5.90) Mil/uL Hgb 9.0 L (12.0-18.0) g/dL Hct 28.8 L (35.0-51.0) % MCV 74.1 L (80.0-94.0) fL MCH 23.1 L (27.0-31.0) pg MCHC 31.1 L (33.0-37.0) g/dL RDW 22.5 H (11.5-14.5) % Plt Count 328 (130-400) K/uL MPV 9.3 (7.2-11.7) fL Neut % (Auto) 76.9 H (50.0-75.0) % Lymph % (Auto) 10.7 L (20.0-40.0) % [place] % (Auto) 6.9 (0.0-10.0) % Eos % (Auto) 5.0 H (0.0-4.0) % Baso % (Auto) 0.5 (0.0-2.0) % Neut # 11.0 H (1.8-7.0) K/uL Lymph # 1.5 (1.0-4.3) K/uL [place] # 1.0 H (0.0-0.8) K/uL Eos # 0.7 (0.0-0.7) K/uL Baso # 0.1 (0.0-0.2) K/uL Neutrophils % (Manual) (50-75) % Band Neutrophils % (0-2) % Lymphocytes % (Manual) (20-40) % Monocytes % (Manual) (0-10) % Eosinophils % (Manual) (0-4) % Platelet Estimate (NORMAL) Large Platelets Giant Platelets Hypochromasia (manual) Poikilocytosis (manual Anisocytosis (manual) Microcytosis (manual) Target Cells Tear Drop Cells Ovalocytes Puncture Site pCO2 (35-45) mm/Hg pO2 (80-100) mm/Hg HCO3 (21-28) mmol/L ABG pH (7.35-7.45) ABG Total CO2 (22-28) mmol/L ABG O2 Saturation (95-98) % ABG Base Excess (-2.0-3.0) mmol/L ABG Hemoglobin (11.7-17.4) g/dL ABG Carboxyhemoglobin (0.5-1.5) % POC ABG HHb (Measured) (0.0-5.0) % ABG Methemoglobin (0.0-3.0) % Uriel Test A-a O2 Difference mm/Hg Respiratory Index Hgb O2 Saturation (95.0-98.0) % Vent Mode Mechanical Rate FiO2 % Tidal Volume PEEP Sodium 138 (132-148) mmol/L Potassium 3.8 (3.6-5.2) mmol/L Chloride 99 (98-107) mmol/L Carbon Dioxide 26 (22-30) mmol/L Anion Gap 17 (10-20) BUN 62 H (9-20) mg/dL Creatinine 2.7 H (0.8-1.5) MG/DL Est GFR ( Amer) 28 Est GFR (Non-Af Amer) 23 POC Glucose (mg/dL) 263 H (65-110) mg/dL Random Glucose 211 H (75-110) mg/dL Calcium 7.9 L (8.6-10.4) mg/dl Phosphorus 5.7 H (2.5-4.5) mg/dL Magnesium 2.5 H (1.6-2.3) mg/dL % Saturation (20-55) Ferritin ng/mL Total Bilirubin 0.5 (0.2-1.3) mg/dL AST 92 H (17-59) U/L ALT 71 (21-72) U/L Alkaline Phosphatase 116 (38-126) U/L Total Protein 6.2 L (6.3-8.3) g/dL Albumin 3.0 L (3.5-5.0) g/dL Globulin 3.2 (2.2-3.9) gm/dL Albumin/Globulin Ratio 0.9 L (1.0-2.1) Procalcitonin (0.19-0.49) NG/ML PTH Intact Whole Molec (14-64) pg/mL 08/18/17 08/18/17 08/17/17 Range/Units 05:16 00:23 17:37 WBC (4.8-10.8) K/uL RBC (4.40-5.90) Mil/uL Hgb (12.0-18.0) g/dL Hct (35.0-51.0) % MCV (80.0-94.0) fL MCH (27.0-31.0) pg MCHC (33.0-37.0) g/dL RDW (11.5-14.5) % Plt Count (130-400) K/uL MPV (7.2-11.7) fL Neut % (Auto) (50.0-75.0) % Lymph % (Auto) (20.0-40.0) % [place] % (Auto) (0.0-10.0) % Eos % (Auto) (0.0-4.0) % Baso % (Auto) (0.0-2.0) % Neut # (1.8-7.0) K/uL Lymph # (1.0-4.3) K/uL [place] # (0.0-0.8) K/uL Eos # (0.0-0.7) K/uL Baso # (0.0-0.2) K/uL Neutrophils % (Manual) (50-75) % Band Neutrophils % (0-2) % Lymphocytes % (Manual) (20-40) % Monocytes % (Manual) (0-10) % Eosinophils % (Manual) (0-4) % Platelet Estimate (NORMAL) Large Platelets Giant Platelets Hypochromasia (manual) Poikilocytosis (manual Anisocytosis (manual) Microcytosis (manual) Target Cells Tear Drop Cells Ovalocytes Puncture Site Rr pCO2 47 H (35-45) mm/Hg pO2 80 (80-100) mm/Hg HCO3 26.1 (21-28) mmol/L ABG pH 7.37 (7.35-7.45) ABG Total CO2 28.6 H (22-28) mmol/L ABG O2 Saturation 97.4 (95-98) % ABG Base Excess 1.5 (-2.0-3.0) mmol/L ABG Hemoglobin 9.6 L (11.7-17.4) g/dL ABG Carboxyhemoglobin 2.2 H (0.5-1.5) % POC ABG HHb (Measured) 2.5 (0.0-5.0) % ABG Methemoglobin 1.2 (0.0-3.0) % Uriel Test Pos A-a O2 Difference 574.0 mm/Hg Respiratory Index 7.2 Hgb O2 Saturation 94.2 L (95.0-98.0) % Vent Mode Prvc Mechanical Rate 10 FiO2 100.0 % Tidal Volume 500 PEEP 8 Sodium (132-148) mmol/L Potassium (3.6-5.2) mmol/L Chloride (98-107) mmol/L Carbon Dioxide (22-30) mmol/L Anion Gap (10-20) BUN (9-20) mg/dL Creatinine (0.8-1.5) MG/DL Est GFR ( Amer) Est GFR (Non-Af Amer) POC Glucose (mg/dL) 260 H 211 H (65-110) mg/dL Random Glucose (75-110) mg/dL Calcium (8.6-10.4) mg/dl Phosphorus (2.5-4.5) mg/dL Magnesium (1.6-2.3) mg/dL % Saturation (20-55) Ferritin ng/mL Total Bilirubin (0.2-1.3) mg/dL AST (17-59) U/L ALT (21-72) U/L Alkaline Phosphatase (38-126) U/L Total Protein (6.3-8.3) g/dL Albumin (3.5-5.0) g/dL Globulin (2.2-3.9) gm/dL Albumin/Globulin Ratio (1.0-2.1) Procalcitonin (0.19-0.49) NG/ML PTH Intact Whole Molec (14-64) pg/mL 08/17/17 08/17/17 08/17/17 Range/Units 16:33 16:33 11:33 WBC (4.8-10.8) K/uL RBC (4.40-5.90) Mil/uL Hgb (12.0-18.0) g/dL Hct (35.0-51.0) % MCV (80.0-94.0) fL MCH (27.0-31.0) pg MCHC (33.0-37.0) g/dL RDW (11.5-14.5) % Plt Count (130-400) K/uL MPV (7.2-11.7) fL Neut % (Auto) (50.0-75.0) % Lymph % (Auto) (20.0-40.0) % [place] % (Auto) (0.0-10.0) % Eos % (Auto) (0.0-4.0) % Baso % (Auto) (0.0-2.0) % Neut # (1.8-7.0) K/uL Lymph # (1.0-4.3) K/uL [place] # (0.0-0.8) K/uL Eos # (0.0-0.7) K/uL Baso # (0.0-0.2) K/uL Neutrophils % (Manual) (50-75) % Band Neutrophils % (0-2) % Lymphocytes % (Manual) (20-40) % Monocytes % (Manual) (0-10) % Eosinophils % (Manual) (0-4) % Platelet Estimate (NORMAL) Large Platelets Giant Platelets Hypochromasia (manual) Poikilocytosis (manual Anisocytosis (manual) Microcytosis (manual) Target Cells Tear Drop Cells Ovalocytes Puncture Site pCO2 (35-45) mm/Hg pO2 (80-100) mm/Hg HCO3 (21-28) mmol/L ABG pH (7.35-7.45) ABG Total CO2 (22-28) mmol/L ABG O2 Saturation (95-98) % ABG Base Excess (-2.0-3.0) mmol/L ABG Hemoglobin (11.7-17.4) g/dL ABG Carboxyhemoglobin (0.5-1.5) % POC ABG HHb (Measured) (0.0-5.0) % ABG Methemoglobin (0.0-3.0) % Uriel Test A-a O2 Difference mm/Hg Respiratory Index Hgb O2 Saturation (95.0-98.0) % Vent Mode Mechanical Rate FiO2 % Tidal Volume PEEP Sodium (132-148) mmol/L Potassium (3.6-5.2) mmol/L Chloride (98-107) mmol/L Carbon Dioxide (22-30) mmol/L Anion Gap (10-20) BUN (9-20) mg/dL Creatinine (0.8-1.5) MG/DL Est GFR ( Amer) Est GFR (Non-Af Amer) POC Glucose (mg/dL) 208 H (65-110) mg/dL Random Glucose (75-110) mg/dL Calcium (8.6-10.4) mg/dl Phosphorus (2.5-4.5) mg/dL Magnesium (1.6-2.3) mg/dL % Saturation 14 L (20-55) Ferritin 682.0 ng/mL Total Bilirubin (0.2-1.3) mg/dL AST (17-59) U/L ALT (21-72) U/L Alkaline Phosphatase (38-126) U/L Total Protein (6.3-8.3) g/dL Albumin (3.5-5.0) g/dL Globulin (2.2-3.9) gm/dL Albumin/Globulin Ratio (1.0-2.1) Procalcitonin (0.19-0.49) NG/ML PTH Intact Whole Molec (14-64) pg/mL 08/17/17 08/17/17 08/16/17 Range/Units 10:50 06:12 05:52 WBC (4.8-10.8) K/uL RBC (4.40-5.90) Mil/uL Hgb (12.0-18.0) g/dL Hct (35.0-51.0) % MCV (80.0-94.0) fL MCH (27.0-31.0) pg MCHC (33.0-37.0) g/dL RDW (11.5-14.5) % Plt Count (130-400) K/uL MPV (7.2-11.7) fL Neut % (Auto) (50.0-75.0) % Lymph % (Auto) (20.0-40.0) % [place] % (Auto) (0.0-10.0) % Eos % (Auto) (0.0-4.0) % Baso % (Auto) (0.0-2.0) % Neut # (1.8-7.0) K/uL Lymph # (1.0-4.3) K/uL [place] # (0.0-0.8) K/uL Eos # (0.0-0.7) K/uL Baso # (0.0-0.2) K/uL Neutrophils % (Manual) 88 H (50-75) % Band Neutrophils % 1 (0-2) % Lymphocytes % (Manual) 6 L (20-40) % Monocytes % (Manual) 4 (0-10) % Eosinophils % (Manual) 1 (0-4) % Platelet Estimate Normal (NORMAL) Large Platelets Present Giant Platelets Present Hypochromasia (manual) Slight Poikilocytosis (manual Slight Anisocytosis (manual) Slight Microcytosis (manual) Slight Target Cells Slight Tear Drop Cells Slight Ovalocytes Slight Puncture Site Rb pCO2 41 (35-45) mm/Hg pO2 49 L (80-100) mm/Hg HCO3 26.1 (21-28) mmol/L ABG pH 7.42 (7.35-7.45) ABG Total CO2 27.9 (22-28) mmol/L ABG O2 Saturation 87.4 L (95-98) % ABG Base Excess 1.9 (-2.0-3.0) mmol/L ABG Hemoglobin (11.7-17.4) g/dL ABG Carboxyhemoglobin (0.5-1.5) % POC ABG HHb (Measured) (0.0-5.0) % ABG Methemoglobin (0.0-3.0) % Uriel Test Na A-a O2 Difference 399.0 mm/Hg Respiratory Index 8.1 Hgb O2 Saturation (95.0-98.0) % Vent Mode Prvc Mechanical Rate 10 FiO2 70.0 % Tidal Volume 500 PEEP 8 Sodium (132-148) mmol/L Potassium (3.6-5.2) mmol/L Chloride (98-107) mmol/L Carbon Dioxide (22-30) mmol/L Anion Gap (10-20) BUN (9-20) mg/dL Creatinine (0.8-1.5) MG/DL Est GFR ( Amer) Est GFR (Non-Af Amer) POC Glucose (mg/dL) (65-110) mg/dL Random Glucose (75-110) mg/dL Calcium (8.6-10.4) mg/dl Phosphorus (2.5-4.5) mg/dL Magnesium (1.6-2.3) mg/dL % Saturation (20-55) Ferritin ng/mL Total Bilirubin (0.2-1.3) mg/dL AST (17-59) U/L ALT (21-72) U/L Alkaline Phosphatase (38-126) U/L Total Protein (6.3-8.3) g/dL Albumin (3.5-5.0) g/dL Globulin (2.2-3.9) gm/dL Albumin/Globulin Ratio (1.0-2.1) Procalcitonin 2.11 H (0.19-0.49) NG/ML PTH Intact Whole Molec (14-64) pg/mL 08/15/17 Range/Units 20:28 WBC (4.8-10.8) K/uL RBC (4.40-5.90) Mil/uL Hgb (12.0-18.0) g/dL Hct (35.0-51.0) % MCV (80.0-94.0) fL MCH (27.0-31.0) pg MCHC (33.0-37.0) g/dL RDW (11.5-14.5) % Plt Count (130-400) K/uL MPV (7.2-11.7) fL Neut % (Auto) (50.0-75.0) % Lymph % (Auto) (20.0-40.0) % [place] % (Auto) (0.0-10.0) % Eos % (Auto) (0.0-4.0) % Baso % (Auto) (0.0-2.0) % Neut # (1.8-7.0) K/uL Lymph # (1.0-4.3) K/uL [place] # (0.0-0.8) K/uL Eos # (0.0-0.7) K/uL Baso # (0.0-0.2) K/uL Neutrophils % (Manual) (50-75) % Band Neutrophils % (0-2) % Lymphocytes % (Manual) (20-40) % Monocytes % (Manual) (0-10) % Eosinophils % (Manual) (0-4) % Platelet Estimate (NORMAL) Large Platelets Giant Platelets Hypochromasia (manual) Poikilocytosis (manual Anisocytosis (manual) Microcytosis (manual) Target Cells Tear Drop Cells Ovalocytes Puncture Site pCO2 (35-45) mm/Hg pO2 (80-100) mm/Hg HCO3 (21-28) mmol/L ABG pH (7.35-7.45) ABG Total CO2 (22-28) mmol/L ABG O2 Saturation (95-98) % ABG Base Excess (-2.0-3.0) mmol/L ABG Hemoglobin (11.7-17.4) g/dL ABG Carboxyhemoglobin (0.5-1.5) % POC ABG HHb (Measured) (0.0-5.0) % ABG Methemoglobin (0.0-3.0) % Uriel Test A-a O2 Difference mm/Hg Respiratory Index Hgb O2 Saturation (95.0-98.0) % Vent Mode Mechanical Rate FiO2 % Tidal Volume PEEP Sodium (132-148) mmol/L Potassium (3.6-5.2) mmol/L Chloride (98-107) mmol/L Carbon Dioxide (22-30) mmol/L Anion Gap (10-20) BUN (9-20) mg/dL Creatinine (0.8-1.5) MG/DL Est GFR ( Amer) Est GFR (Non-Af Amer) POC Glucose (mg/dL) (65-110) mg/dL Random Glucose (75-110) mg/dL Calcium (8.6-10.4) mg/dl Phosphorus (2.5-4.5) mg/dL Magnesium (1.6-2.3) mg/dL % Saturation (20-55) Ferritin ng/mL Total Bilirubin (0.2-1.3) mg/dL AST (17-59) U/L ALT (21-72) U/L Alkaline Phosphatase (38-126) U/L Total Protein (6.3-8.3) g/dL Albumin (3.5-5.0) g/dL Globulin (2.2-3.9) gm/dL Albumin/Globulin Ratio (1.0-2.1) Procalcitonin (0.19-0.49) NG/ML PTH Intact Whole Molec 104 H (14-64) pg/mL Laboratory Results - last 24 hr 08/15/17 08/16/17 08/17/17 20:28 05:52 06:12 WBC RBC Hgb Hct MCV MCH MCHC RDW Plt Count MPV Neut % (Auto) Lymph % (Auto) [place] % (Auto) Eos % (Auto) Baso % (Auto) Neut # Lymph # [place] # Eos # Baso # Neutrophils % (Manual) 88 H Band Neutrophils % 1 Lymphocytes % (Manual) 6 L Monocytes % (Manual) 4 Eosinophils % (Manual) 1 Platelet Estimate Normal Large Platelets Present Giant Platelets Present Hypochromasia (manual) Slight Poikilocytosis (manual Slight Anisocytosis (manual) Slight Microcytosis (manual) Slight Target Cells Slight Tear Drop Cells Slight Ovalocytes Slight Puncture Site Rb pCO2 41 pO2 49 L HCO3 26.1 ABG pH 7.42 ABG Total CO2 27.9 ABG O2 Saturation 87.4 L ABG Base Excess 1.9 ABG Hemoglobin ABG Carboxyhemoglobin POC ABG HHb (Measured) ABG Methemoglobin Uriel Test Na A-a O2 Difference 399.0 Respiratory Index 8.1 Hgb O2 Saturation Vent Mode Prvc Mechanical Rate 10 FiO2 70.0 Tidal Volume 500 PEEP 8 Sodium Potassium Chloride Carbon Dioxide Anion Gap BUN Creatinine Est GFR ( Amer) Est GFR (Non-Af Amer) POC Glucose (mg/dL) Random Glucose Calcium Phosphorus Magnesium % Saturation Ferritin Total Bilirubin AST ALT Alkaline Phosphatase Total Protein Albumin Globulin Albumin/Globulin Ratio Procalcitonin PTH Intact Whole Molec 104 H 08/17/17 08/17/17 08/17/17 10:50 11:33 16:33 WBC RBC Hgb Hct MCV MCH MCHC RDW Plt Count MPV Neut % (Auto) Lymph % (Auto) [place] % (Auto) Eos % (Auto) Baso % (Auto) Neut # Lymph # [place] # Eos # Baso # Neutrophils % (Manual) Band Neutrophils % Lymphocytes % (Manual) Monocytes % (Manual) Eosinophils % (Manual) Platelet Estimate Large Platelets Giant Platelets Hypochromasia (manual) Poikilocytosis (manual Anisocytosis (manual) Microcytosis (manual) Target Cells Tear Drop Cells Ovalocytes Puncture Site pCO2 pO2 HCO3 ABG pH ABG Total CO2 ABG O2 Saturation ABG Base Excess ABG Hemoglobin ABG Carboxyhemoglobin POC ABG HHb (Measured) ABG Methemoglobin Uriel Test A-a O2 Difference Respiratory Index Hgb O2 Saturation Vent Mode Mechanical Rate FiO2 Tidal Volume PEEP Sodium Potassium Chloride Carbon Dioxide Anion Gap BUN Creatinine Est GFR ( Amer) Est GFR (Non-Af Amer) POC Glucose (mg/dL) 208 H Random Glucose Calcium Phosphorus Magnesium % Saturation 14 L Ferritin Total Bilirubin AST ALT Alkaline Phosphatase Total Protein Albumin Globulin Albumin/Globulin Ratio Procalcitonin 2.11 H PTH Intact Whole Molec 08/17/17 08/17/17 08/18/17 16:33 17:37 00:23 WBC RBC Hgb Hct MCV MCH MCHC RDW Plt Count MPV Neut % (Auto) Lymph % (Auto) [place] % (Auto) Eos % (Auto) Baso % (Auto) Neut # Lymph # [place] # Eos # Baso # Neutrophils % (Manual) Band Neutrophils % Lymphocytes % (Manual) Monocytes % (Manual) Eosinophils % (Manual) Platelet Estimate Large Platelets Giant Platelets Hypochromasia (manual) Poikilocytosis (manual Anisocytosis (manual) Microcytosis (manual) Target Cells Tear Drop Cells Ovalocytes Puncture Site pCO2 pO2 HCO3 ABG pH ABG Total CO2 ABG O2 Saturation ABG Base Excess ABG Hemoglobin ABG Carboxyhemoglobin POC ABG HHb (Measured) ABG Methemoglobin Uriel Test A-a O2 Difference Respiratory Index Hgb O2 Saturation Vent Mode Mechanical Rate FiO2 Tidal Volume PEEP Sodium Potassium Chloride Carbon Dioxide Anion Gap BUN Creatinine Est GFR ( Amer) Est GFR (Non-Af Amer) POC Glucose (mg/dL) 211 H 260 H Random Glucose Calcium Phosphorus Magnesium % Saturation Ferritin 682.0 Total Bilirubin AST ALT Alkaline Phosphatase Total Protein Albumin Globulin Albumin/Globulin Ratio Procalcitonin PTH Intact Whole Molec 08/18/17 08/18/17 08/18/17 05:16 05:45 06:16 WBC 14.3 H RBC 3.88 L Hgb 9.0 L Hct 28.8 L MCV 74.1 L MCH 23.1 L MCHC 31.1 L RDW 22.5 H Plt Count 328 MPV 9.3 Neut % (Auto) 76.9 H Lymph % (Auto) 10.7 L [place] % (Auto) 6.9 Eos % (Auto) 5.0 H Baso % (Auto) 0.5 Neut # 11.0 H Lymph # 1.5 [place] # 1.0 H Eos # 0.7 Baso # 0.1 Neutrophils % (Manual) Band Neutrophils % Lymphocytes % (Manual) Monocytes % (Manual) Eosinophils % (Manual) Platelet Estimate Large Platelets Giant Platelets Hypochromasia (manual) Poikilocytosis (manual Anisocytosis (manual) Microcytosis (manual) Target Cells Tear Drop Cells Ovalocytes Puncture Site Rr pCO2 47 H pO2 80 HCO3 26.1 ABG pH 7.37 ABG Total CO2 28.6 H ABG O2 Saturation 97.4 ABG Base Excess 1.5 ABG Hemoglobin 9.6 L ABG Carboxyhemoglobin 2.2 H POC ABG HHb (Measured) 2.5 ABG Methemoglobin 1.2 Uriel Test Pos A-a O2 Difference 574.0 Respiratory Index 7.2 Hgb O2 Saturation 94.2 L Vent Mode Prvc Mechanical Rate 10 FiO2 100.0 Tidal Volume 500 PEEP 8 Sodium Potassium Chloride Carbon Dioxide Anion Gap BUN Creatinine Est GFR ( Amer) Est GFR (Non-Af Amer) POC Glucose (mg/dL) 263 H Random Glucose Calcium Phosphorus Magnesium % Saturation Ferritin Total Bilirubin AST ALT Alkaline Phosphatase Total Protein Albumin Globulin Albumin/Globulin Ratio Procalcitonin PTH Intact Whole Molec 08/18/17 06:16 WBC RBC Hgb Hct MCV MCH MCHC RDW Plt Count MPV Neut % (Auto) Lymph % (Auto) [place] % (Auto) Eos % (Auto) Baso % (Auto) Neut # Lymph # [place] # Eos # Baso # Neutrophils % (Manual) Band Neutrophils % Lymphocytes % (Manual) Monocytes % (Manual) Eosinophils % (Manual) Platelet Estimate Large Platelets Giant Platelets Hypochromasia (manual) Poikilocytosis (manual Anisocytosis (manual) Microcytosis (manual) Target Cells Tear Drop Cells Ovalocytes Puncture Site pCO2 pO2 HCO3 ABG pH ABG Total CO2 ABG O2 Saturation ABG Base Excess ABG Hemoglobin ABG Carboxyhemoglobin POC ABG HHb (Measured) ABG Methemoglobin Uriel Test A-a O2 Difference Respiratory Index Hgb O2 Saturation Vent Mode Mechanical Rate FiO2 Tidal Volume PEEP Sodium 138 Potassium 3.8 Chloride 99 Carbon Dioxide 26 Anion Gap 17 BUN 62 H Creatinine 2.7 H Est GFR ( Amer) 28 Est GFR (Non-Af Amer) 23 POC Glucose (mg/dL) Random Glucose 211 H Calcium 7.9 L Phosphorus 5.7 H Magnesium 2.5 H % Saturation Ferritin Total Bilirubin 0.5 AST 92 H ALT 71 Alkaline Phosphatase 116 Total Protein 6.2 L Albumin 3.0 L Globulin 3.2 Albumin/Globulin Ratio 0.9 L Procalcitonin PTH Intact Whole Molec Fingerstick Blood Sugar Results: 105 Review of Systems - Review of Systems Systems not reviewed;Unavailable: Intubated Critical Care Progress Note - Vent Settings MODE:: PRVC TIDAL VOLUME:: 450 RESP RATE:: 14 FIO2:: 100 PEEP:: 14 - Extremities/Vascular Does the Patient have a Central Venous Catheter?: Yes Insertion Site: Internal Jugular Vein Does the Patient have a Jaquez Catheter?: Yes Catheter Insertion Criteria: Need for accurate measurement of output in critically ill patient - Prophylaxis GI Prophylaxis GI: Pepsid - Prophylaxis DVT Prophylaxis DVT: Lovenox - Nutrition Nutrition: Nutrition Category Date Time Status Heart Healthy Diet [DIET] Diets 08/09/17 Lunch Active Assessment/Plan - Assessment and Plan (Free Text) Assessment: 77 yo M admitted to ICU from floors, patient was to get CT scan and had respiratory distress, a code blue was called and patient was transferred to ICU and intubated. Today (08/18): Patient scheduled for HD today and tomorrow, goal is 3L if possible for each day. Tracheostomy scheduled for tomorrow by Dr. Forbes, NPO after midnight. Neuro: Sedated with propofol drip. Pulm: acute respiratory failure in severe ARDS. CT chest shows large right pleural effusion, consulted IR for pigtail placement (pneumothorax risk is high , so pigtail placement would be safest). Patient is showing slow improvement using lung protective strategy from [facility]DS[employer] protocol. - Duonebs CV: NSTEMI on Lovenox, metoprolol po qd, nifedipine po q8h. Hem: aspirin, plavix, lovenox, holding eliquis. Renal: ALIREZA, Lasix 60mg IV q12h, becoming less effective, urine output decreasing. Hemodialysis x2. Endo: DM type 2, on insulin sliding scale for coverage GI: no recent BM's, Started Senna/Colace and enema. No obstruction seen on CT abdomen. ID: severe sepsis from pneumonia, continue Meropenem 500mg (started 08/14), Zosyn 2.25Gm (started 08/18) DVT proph - Lovenox 30mg sc qd GI proph - pepcid jaquez for strict I/O's during acute illness Code status - full code <Diaz Streeter - Last Filed: 08/19/17 17:09> CCU Objective - Vital Signs / Intake & Output Vital Signs (Last 4 hours): Vital Signs Temp Pulse Resp BP Pulse Ox 08/18/17 15:07 83 24 133/51 L 99 08/18/17 15:00 83 20 99 08/18/17 14:07 87 25 H 142/54 L 99 08/18/17 14:00 86 26 H 99 08/18/17 13:07 85 27 H 138/59 L 98 08/18/17 13:00 78 31 H 98 08/18/17 12:24 75 24 120/48 L 97 08/18/17 12:00 99.5 F 74 19 100 Intake and Output (Last 8hrs): Intake & Output 08/18/17 08/18/17 08/18/17 06:59 14:59 22:59 Intake Total 656 752.9 74.1 Output Total 120 215 24 Balance 536 537.9 50.1 Weight 209 lb Intake: IV 200 200 Intake, IV Amount 136 232.9 34.1 Right Proximal Port 136 232.9 34.1 Tube Feeding 320 320 40 Output: Urine 120 215 24 Urethral (Jaquez) 120 215 24 Other: # Bowel Movements 0 0 - Medications Active Medications: Active Medications Generic Name Dose Route Start Last Admin Trade Name Freq PRN Reason Stop Dose Admin Acetaminophen 650 mg 08/11/17 17:40 08/16/17 12:31 Tylenol 650mg/20.3ml Solution Ud PO 650 mg Q6 PRN Administration Temperature Albumin Human 12.5 gm 08/19/17 06:00 Albumin Human 25% (12.5 Gm/50 Ml) IV 08/19/17 10:01 Q2H LUIS FERNANDO Albuterol/Ipratropium 3 ml 08/18/17 12:00 Duoneb 3 Mg/0.5 Mg (3 Ml) Ud INH RQ4 LUIS FERNANDO Aspirin 81 mg 08/14/17 11:15 08/18/17 10:33 Aspirin Chewable PO 81 mg DAILY LUIS FERNANDO Administration Clopidogrel Bisulfate 75 mg 08/12/17 11:00 08/18/17 10:34 Plavix PO 75 mg DAILY LUIS FERNANDO Administration Enoxaparin Sodium 30 mg 08/17/17 10:00 08/18/17 10:40 Lovenox SC 30 mg DAILY LUIS FERNANDO Administration Epoetin Chencho 10,000 unit 08/17/17 14:00 08/17/17 18:23 Procrit IV Not Given MW LUIS FERNANDO Famotidine 20 mg 08/09/17 10:00 08/18/17 10:33 Pepcid PO 20 mg DAILY LUIS FERNANDO Administration Propofol 1,000 mg in 100 mls @ 2.844 mls/hr 08/12/17 21:00 08/18/17 14:20 Diprivan IV 60 mcg/kg/min .Q24H PRN 34.128 mls/hr TITRATE PER MD ORDER Administration Protocol 5 MCG/KG/MIN Meropenem 500 mg/ Sodium 100 mls @ 100 mls/hr 08/14/17 22:00 08/18/17 10:33 Chloride IVPB 100 mls/hr Q12 LUIS FERNANDO Administration Piperacillin Sod/Tazobactam Sod 2.25 gm in 50 mls @ 100 mls/hr 08/18/17 11:15 08/18/17 12:00 Zosyn 2.25 Gm Iv Premix IVPB 100 mls/hr Q6H LUIS FERNANDO Administration Insulin Aspart 0 unit 08/11/17 00:00 08/18/17 11:55 Novolog SC 6 unit Q6H LUIS FERNANDO Administration Protocol Insulin Glargine 10 unit 08/14/17 22:00 08/17/17 22:00 Lantus SC 10 u HS LUIS FERNANDO Administration Ipratropium [place] 0.5 mg 08/07/17 08:47 08/15/17 08:07 Atrovent IH 0.5 mg RQ6 PRN Administration Shortness of Breath Lactobacillus Acidophilus 1 cap 08/13/17 18:00 08/18/17 10:33 Bacid Acidophilus PO 1 cap BID LUIS FERNADNO Administration Metoprolol Succinate 50 mg 08/07/17 13:54 08/18/17 10:33 Toprol Xl PO 50 mg DAILY LUIS FERNANDO Administration Midazolam HCl 2 mg 08/12/17 14:26 Versed Inj IVP Q4H PRN Anxiety Rosuvastatin Calcium 10 mg 08/06/17 22:00 08/17/17 22:00 Crestor PO 10 mg HS LUIS FERNANDO Administration Senna/Docusate Sodium 1 tab 08/13/17 11:30 08/18/17 10:33 Senokot S 50 Mg-8.6 Mg PO 1 tab BID LUIS FERNANDO Administration - Patient Studies Lab Studies: Microbiology Studies 08/14/17 17:36 Gram Stain - Final Trachasp Sputum Culture - Final NORMAL ORAL SILVIA Lab Studies 09/21/17 09/21/17 09/21/17 Range/Units 12:05 11:39 06:16 WBC (4.8-10.8) K/uL RBC (4.40-5.90) Mil/uL Hgb (12.0-18.0) g/dL Hct (35.0-51.0) % MCV (80.0-94.0) fL MCH (27.0-31.0) pg MCHC (33.0-37.0) g/dL RDW (11.5-14.5) % Plt Count (130-400) K/uL MPV (7.2-11.7) fL Neut % (Auto) (50.0-75.0) % Lymph % (Auto) (20.0-40.0) % [place] % (Auto) (0.0-10.0) % Eos % (Auto) (0.0-4.0) % Baso % (Auto) (0.0-2.0) % Neut # (1.8-7.0) K/uL Lymph # (1.0-4.3) K/uL [place] # (0.0-0.8) K/uL Eos # (0.0-0.7) K/uL Baso # (0.0-0.2) K/uL Puncture Site L/b pCO2 38 (35-45) mm/Hg pO2 146 H (80-100) mm/Hg HCO3 24.6 (21-28) mmol/L ABG pH 7.41 (7.35-7.45) ABG Total CO2 25.3 (22-28) mmol/L ABG O2 Saturation 99.4 H (95-98) % ABG Base Excess -0.4 (-2.0-3.0) mmol/L ABG Hemoglobin 10.2 L (11.7-17.4) g/dL ABG Carboxyhemoglobin 1.8 H (0.5-1.5) % POC ABG HHb (Measured) 0.6 (0.0-5.0) % ABG Methemoglobin 0.8 (0.0-3.0) % Uriel Test Na A-a O2 Difference 520.0 mm/Hg Respiratory Index 3.6 Hgb O2 Saturation 96.8 (95.0-98.0) % Vent Mode Mechanical Rate 14 FiO2 100.0 % Tidal Volume 450 PEEP 14 Sodium 138 (132-148) mmol/L Potassium 3.8 (3.6-5.2) mmol/L Chloride 99 (98-107) mmol/L Carbon Dioxide 26 (22-30) mmol/L Anion Gap 17 (10-20) BUN 62 H (9-20) mg/dL Creatinine 2.7 H (0.8-1.5) MG/DL Est GFR ( Amer) 28 Est GFR (Non-Af Amer) 23 POC Glucose (mg/dL) 271 H (65-110) mg/dL Random Glucose 211 H (75-110) mg/dL Calcium 7.9 L (8.6-10.4) mg/dl Phosphorus 5.7 H (2.5-4.5) mg/dL Magnesium 2.5 H (1.6-2.3) mg/dL % Saturation (20-55) Ferritin ng/mL Total Bilirubin 0.5 (0.2-1.3) mg/dL AST 92 H (17-59) U/L ALT 71 (21-72) U/L Alkaline Phosphatase 116 (38-126) U/L Total Protein 6.2 L (6.3-8.3) g/dL Albumin 3.0 L (3.5-5.0) g/dL Globulin 3.2 (2.2-3.9) gm/dL Albumin/Globulin Ratio 0.9 L (1.0-2.1) 08/18/17 08/18/17 08/18/17 Range/Units 06:16 05:45 05:16 WBC 14.3 H (4.8-10.8) K/uL RBC 3.88 L (4.40-5.90) Mil/uL Hgb 9.0 L (12.0-18.0) g/dL Hct 28.8 L (35.0-51.0) % MCV 74.1 L (80.0-94.0) fL MCH 23.1 L (27.0-31.0) pg MCHC 31.1 L (33.0-37.0) g/dL RDW 22.5 H (11.5-14.5) % Plt Count 328 (130-400) K/uL MPV 9.3 (7.2-11.7) fL Neut % (Auto) 76.9 H (50.0-75.0) % Lymph % (Auto) 10.7 L (20.0-40.0) % [place] % (Auto) 6.9 (0.0-10.0) % Eos % (Auto) 5.0 H (0.0-4.0) % Baso % (Auto) 0.5 (0.0-2.0) % Neut # 11.0 H (1.8-7.0) K/uL Lymph # 1.5 (1.0-4.3) K/uL [place] # 1.0 H (0.0-0.8) K/uL Eos # 0.7 (0.0-0.7) K/uL Baso # 0.1 (0.0-0.2) K/uL Puncture Site Rr pCO2 47 H (35-45) mm/Hg pO2 80 (80-100) mm/Hg HCO3 26.1 (21-28) mmol/L ABG pH 7.37 (7.35-7.45) ABG Total CO2 28.6 H (22-28) mmol/L ABG O2 Saturation 97.4 (95-98) % ABG Base Excess 1.5 (-2.0-3.0) mmol/L ABG Hemoglobin 9.6 L (11.7-17.4) g/dL ABG Carboxyhemoglobin 2.2 H (0.5-1.5) % POC ABG HHb (Measured) 2.5 (0.0-5.0) % ABG Methemoglobin 1.2 (0.0-3.0) % Uriel Test Pos A-a O2 Difference 574.0 mm/Hg Respiratory Index 7.2 Hgb O2 Saturation 94.2 L (95.0-98.0) % Vent Mode Prvc Mechanical Rate 10 FiO2 100.0 % Tidal Volume 500 PEEP 8 Sodium (132-148) mmol/L Potassium (3.6-5.2) mmol/L Chloride (98-107) mmol/L Carbon Dioxide (22-30) mmol/L Anion Gap (10-20) BUN (9-20) mg/dL Creatinine (0.8-1.5) MG/DL Est GFR ( Amer) Est GFR (Non-Af Amer) POC Glucose (mg/dL) 263 H (65-110) mg/dL Random Glucose (75-110) mg/dL Calcium (8.6-10.4) mg/dl Phosphorus (2.5-4.5) mg/dL Magnesium (1.6-2.3) mg/dL % Saturation (20-55) Ferritin ng/mL Total Bilirubin (0.2-1.3) mg/dL AST (17-59) U/L ALT (21-72) U/L Alkaline Phosphatase (38-126) U/L Total Protein (6.3-8.3) g/dL Albumin (3.5-5.0) g/dL Globulin (2.2-3.9) gm/dL Albumin/Globulin Ratio (1.0-2.1) 08/18/17 08/17/17 08/17/17 Range/Units 00:23 17:37 16:33 WBC (4.8-10.8) K/uL RBC (4.40-5.90) Mil/uL Hgb (12.0-18.0) g/dL Hct (35.0-51.0) % MCV (80.0-94.0) fL MCH (27.0-31.0) pg MCHC (33.0-37.0) g/dL RDW (11.5-14.5) % Plt Count (130-400) K/uL MPV (7.2-11.7) fL Neut % (Auto) (50.0-75.0) % Lymph % (Auto) (20.0-40.0) % [place] % (Auto) (0.0-10.0) % Eos % (Auto) (0.0-4.0) % Baso % (Auto) (0.0-2.0) % Neut # (1.8-7.0) K/uL Lymph # (1.0-4.3) K/uL [place] # (0.0-0.8) K/uL Eos # (0.0-0.7) K/uL Baso # (0.0-0.2) K/uL Puncture Site pCO2 (35-45) mm/Hg pO2 (80-100) mm/Hg HCO3 (21-28) mmol/L ABG pH (7.35-7.45) ABG Total CO2 (22-28) mmol/L ABG O2 Saturation (95-98) % ABG Base Excess (-2.0-3.0) mmol/L ABG Hemoglobin (11.7-17.4) g/dL ABG Carboxyhemoglobin (0.5-1.5) % POC ABG HHb (Measured) (0.0-5.0) % ABG Methemoglobin (0.0-3.0) % Uriel Test A-a O2 Difference mm/Hg Respiratory Index Hgb O2 Saturation (95.0-98.0) % Vent Mode Mechanical Rate FiO2 % Tidal Volume PEEP Sodium (132-148) mmol/L Potassium (3.6-5.2) mmol/L Chloride (98-107) mmol/L Carbon Dioxide (22-30) mmol/L Anion Gap (10-20) BUN (9-20) mg/dL Creatinine (0.8-1.5) MG/DL Est GFR ( Amer) Est GFR (Non-Af Amer) POC Glucose (mg/dL) 260 H 211 H (65-110) mg/dL Random Glucose (75-110) mg/dL Calcium (8.6-10.4) mg/dl Phosphorus (2.5-4.5) mg/dL Magnesium (1.6-2.3) mg/dL % Saturation (20-55) Ferritin 682.0 ng/mL Total Bilirubin (0.2-1.3) mg/dL AST (17-59) U/L ALT (21-72) U/L Alkaline Phosphatase (38-126) U/L Total Protein (6.3-8.3) g/dL Albumin (3.5-5.0) g/dL Globulin (2.2-3.9) gm/dL Albumin/Globulin Ratio (1.0-2.1) 08/17/17 08/16/17 Range/Units 16:33 05:52 WBC (4.8-10.8) K/uL RBC (4.40-5.90) Mil/uL Hgb (12.0-18.0) g/dL Hct (35.0-51.0) % MCV (80.0-94.0) fL MCH (27.0-31.0) pg MCHC (33.0-37.0) g/dL RDW (11.5-14.5) % Plt Count (130-400) K/uL MPV (7.2-11.7) fL Neut % (Auto) (50.0-75.0) % Lymph % (Auto) (20.0-40.0) % [place] % (Auto) (0.0-10.0) % Eos % (Auto) (0.0-4.0) % Baso % (Auto) (0.0-2.0) % Neut # (1.8-7.0) K/uL Lymph # (1.0-4.3) K/uL [place] # (0.0-0.8) K/uL Eos # (0.0-0.7) K/uL Baso # (0.0-0.2) K/uL Puncture Site Rb pCO2 41 (35-45) mm/Hg pO2 49 L (80-100) mm/Hg HCO3 26.1 (21-28) mmol/L ABG pH 7.42 (7.35-7.45) ABG Total CO2 27.9 (22-28) mmol/L ABG O2 Saturation 87.4 L (95-98) % ABG Base Excess 1.9 (-2.0-3.0) mmol/L ABG Hemoglobin (11.7-17.4) g/dL ABG Carboxyhemoglobin (0.5-1.5) % POC ABG HHb (Measured) (0.0-5.0) % ABG Methemoglobin (0.0-3.0) % Uriel Test Na A-a O2 Difference 399.0 mm/Hg Respiratory Index 8.1 Hgb O2 Saturation (95.0-98.0) % Vent Mode Prvc Mechanical Rate 10 FiO2 70.0 % Tidal Volume 500 PEEP 8 Sodium (132-148) mmol/L Potassium (3.6-5.2) mmol/L Chloride (98-107) mmol/L Carbon Dioxide (22-30) mmol/L Anion Gap (10-20) BUN (9-20) mg/dL Creatinine (0.8-1.5) MG/DL Est GFR ( Amer) Est GFR (Non-Af Amer) POC Glucose (mg/dL) (65-110) mg/dL Random Glucose (75-110) mg/dL Calcium (8.6-10.4) mg/dl Phosphorus (2.5-4.5) mg/dL Magnesium (1.6-2.3) mg/dL % Saturation 14 L (20-55) Ferritin ng/mL Total Bilirubin (0.2-1.3) mg/dL AST (17-59) U/L ALT (21-72) U/L Alkaline Phosphatase (38-126) U/L Total Protein (6.3-8.3) g/dL Albumin (3.5-5.0) g/dL Globulin (2.2-3.9) gm/dL Albumin/Globulin Ratio (1.0-2.1) Laboratory Results - last 24 hr 08/16/17 08/17/17 08/17/17 05:52 16:33 16:33 WBC RBC Hgb Hct MCV MCH MCHC RDW Plt Count MPV Neut % (Auto) Lymph % (Auto) [place] % (Auto) Eos % (Auto) Baso % (Auto) Neut # Lymph # [place] # Eos # Baso # Puncture Site Rb pCO2 41 pO2 49 L HCO3 26.1 ABG pH 7.42 ABG Total CO2 27.9 ABG O2 Saturation 87.4 L ABG Base Excess 1.9 ABG Hemoglobin ABG Carboxyhemoglobin POC ABG HHb (Measured) ABG Methemoglobin Uriel Test Na A-a O2 Difference 399.0 Respiratory Index 8.1 Hgb O2 Saturation Vent Mode Prvc Mechanical Rate 10 FiO2 70.0 Tidal Volume 500 PEEP 8 Sodium Potassium Chloride Carbon Dioxide Anion Gap BUN Creatinine Est GFR ( Amer) Est GFR (Non-Af Amer) POC Glucose (mg/dL) Random Glucose Calcium Phosphorus Magnesium % Saturation 14 L Ferritin 682.0 Total Bilirubin AST ALT Alkaline Phosphatase Total Protein Albumin Globulin Albumin/Globulin Ratio 08/17/17 08/18/17 08/18/17 17:37 00:23 05:16 WBC RBC Hgb Hct MCV MCH MCHC RDW Plt Count MPV Neut % (Auto) Lymph % (Auto) [place] % (Auto) Eos % (Auto) Baso % (Auto) Neut # Lymph # [place] # Eos # Baso # Puncture Site Rr pCO2 47 H pO2 80 HCO3 26.1 ABG pH 7.37 ABG Total CO2 28.6 H ABG O2 Saturation 97.4 ABG Base Excess 1.5 ABG Hemoglobin 9.6 L ABG Carboxyhemoglobin 2.2 H POC ABG HHb (Measured) 2.5 ABG Methemoglobin 1.2 Uriel Test Pos A-a O2 Difference 574.0 Respiratory Index 7.2 Hgb O2 Saturation 94.2 L Vent Mode Prvc Mechanical Rate 10 FiO2 100.0 Tidal Volume 500 PEEP 8 Sodium Potassium Chloride Carbon Dioxide Anion Gap BUN Creatinine Est GFR ( Amer) Est GFR (Non-Af Amer) POC Glucose (mg/dL) 211 H 260 H Random Glucose Calcium Phosphorus Magnesium % Saturation Ferritin Total Bilirubin AST ALT Alkaline Phosphatase Total Protein Albumin Globulin Albumin/Globulin Ratio 08/18/17 08/18/17 08/18/17 05:45 06:16 06:16 WBC 14.3 H RBC 3.88 L Hgb 9.0 L Hct 28.8 L MCV 74.1 L MCH 23.1 L MCHC 31.1 L RDW 22.5 H Plt Count 328 MPV 9.3 Neut % (Auto) 76.9 H Lymph % (Auto) 10.7 L [place] % (Auto) 6.9 Eos % (Auto) 5.0 H Baso % (Auto) 0.5 Neut # 11.0 H Lymph # 1.5 [place] # 1.0 H Eos # 0.7 Baso # 0.1 Puncture Site pCO2 pO2 HCO3 ABG pH ABG Total CO2 ABG O2 Saturation ABG Base Excess ABG Hemoglobin ABG Carboxyhemoglobin POC ABG HHb (Measured) ABG Methemoglobin Uriel Test A-a O2 Difference Respiratory Index Hgb O2 Saturation Vent Mode Mechanical Rate FiO2 Tidal Volume PEEP Sodium 138 Potassium 3.8 Chloride 99 Carbon Dioxide 26 Anion Gap 17 BUN 62 H Creatinine 2.7 H Est GFR ( Amer) 28 Est GFR (Non-Af Amer) 23 POC Glucose (mg/dL) 263 H Random Glucose 211 H Calcium 7.9 L Phosphorus 5.7 H Magnesium 2.5 H % Saturation Ferritin Total Bilirubin 0.5 AST 92 H ALT 71 Alkaline Phosphatase 116 Total Protein 6.2 L Albumin 3.0 L Globulin 3.2 Albumin/Globulin Ratio 0.9 L 08/18/17 08/18/17 11:39 12:05 WBC RBC Hgb Hct MCV MCH MCHC RDW Plt Count MPV Neut % (Auto) Lymph % (Auto) [place] % (Auto) Eos % (Auto) Baso % (Auto) Neut # Lymph # [place] # Eos # Baso # Puncture Site L/b pCO2 38 pO2 146 H HCO3 24.6 ABG pH 7.41 ABG Total CO2 25.3 ABG O2 Saturation 99.4 H ABG Base Excess -0.4 ABG Hemoglobin 10.2 L ABG Carboxyhemoglobin 1.8 H POC ABG HHb (Measured) 0.6 ABG Methemoglobin 0.8 Uriel Test Na A-a O2 Difference 520.0 Respiratory Index 3.6 Hgb O2 Saturation 96.8 Vent Mode Mechanical Rate 14 FiO2 100.0 Tidal Volume 450 PEEP 14 Sodium Potassium Chloride Carbon Dioxide Anion Gap BUN Creatinine Est GFR ( Amer) Est GFR (Non-Af Amer) POC Glucose (mg/dL) 271 H Random Glucose Calcium Phosphorus Magnesium % Saturation Ferritin Total Bilirubin AST ALT Alkaline Phosphatase Total Protein Albumin Globulin Albumin/Globulin Ratio Critical Care Progress Note - Nutrition Nutrition: Nutrition Category Date Time Status Heart Healthy Diet [DIET] Diets 08/09/17 Lunch Active Assessment/Plan (1) ARDS (adult respiratory distress syndrome) Current Visit: Yes Status: Acute Attending/Attestation - Attestation I have personally seen and examined this patient.: Yes I have fully participated in the care of the patient.: Yes I have reviewed all pertinent clinical information: Yes Notes (Text): 08/18/17 15:38 I have seen and examined the patient. Medical records, lab studies, and imaging were reviewed by me and a management plan was formulated on multidisciplinary rounds with resident Dr. Moore. I agree with their above documented assessment and plan. Will obtain chest CT to assess pleural effusions again. Trach placement scheduled for tomorrow. Patient is still hypoxic and in ARDS. Dialyzing aggressively for fluid removal. Critical Care Time 35 minutes. Multi-disciplinary rounds were performed with house staff, nursing, speech therapy, respiratory therapy, pharmacy and nutrition with integrated input from the primary team/attending and other consulting services. The documented time is cumulative and includes review of patient data/exams/labs/chart review and examination of the patient on rounds and throughout the day; time is exclusive of any procedures or teaching time. 08/18/17 15:56
--- NOTE | 2017-08-18 09:10 | RAD ---
Chest x-ray single frontal view History: Intubated. Comparison: 08/17/2017 Findings: Lines and tubes in stable position. Left-sided pacemaker. Cardiomegaly. Prominent diffuse increased interstitial lung markings bilaterally. Scattered dense confluent patchy areas of consolidative change seen throughout both lungs most prominent in the left lung and right lung base. Moderate bilateral pleural effusions. Degenerative changes in the spine and shoulders. Impression: Lines and tubes in stable position. Left-sided pacemaker. Cardiomegaly. Prominent diffuse increased interstitial lung markings bilaterally. Scattered dense confluent patchy areas of consolidative change seen throughout both lungs most prominent in the left lung and right lung base. Moderate bilateral pleural effusions.
--- NOTE | 2017-08-18 09:57 | CP.PCM.PN ---
Subjective - Date & Time of Evaluation Date of Evaluation: 08/18/17 Time of Evaluation: 09:57 - Subjective Subjective: seen and examined remains on vent, sedated minimal uop hd today Objective - Vital Signs/Intake and Output Vital Signs (last 24 hours): Temp Pulse Resp BP Pulse Ox 98.4 F 82 18 117/51 L 99 08/18/17 04:00 08/18/17 06:07 08/18/17 05:07 08/18/17 06:07 08/18/17 06:07 Intake and Output: 08/18/17 08/18/17 06:59 18:59 Intake Total 984 Output Total 150 Balance 834 - Medications Medications: Current Medications Acetaminophen (Tylenol 650mg/20.3ml Solution Ud) 650 mg PO Q6 PRN PRN Reason: Temperature Last Admin: 08/16/17 12:31 Dose: 650 mg Aspirin (Aspirin Chewable) 81 mg PO DAILY [facility] Last Admin: 08/17/17 13:29 Dose: 81 mg Clopidogrel Bisulfate (Plavix) 75 mg PO DAILY [facility] Last Admin: 08/17/17 13:29 Dose: 75 mg Enoxaparin Sodium (Lovenox) 30 mg SC DAILY [facility] Last Admin: 08/17/17 13:30 Dose: 30 mg Epoetin [place] (Procrit) 10,000 unit IV MWF [facility] Last Admin: 08/17/17 18:23 Dose: Not Given Famotidine (Pepcid) 20 mg PO DAILY [facility] Last Admin: 08/17/17 13:30 Dose: 20 mg Propofol (Diprivan) 1,000 mg in 100 mls @ 2.844 mls/hr IV .Q24H PRN; Protocol; 5 MCG/KG/MIN PRN Reason: TITRATE PER MD ORDER Last Admin: 08/18/17 06:00 Dose: 29.88 mcg/kg/min, 16.996 mls/hr Meropenem 500 mg/ Sodium (Chloride) 100 mls @ 100 mls/hr IVPB Q12 [facility] Last Admin: 08/17/17 22:00 Dose: 100 mls/hr Insulin Aspart (Novolog) 0 unit SC Q6H LUIS FERNANDO PRN Reason: Protocol Last Admin: 08/18/17 06:36 Dose: 6 unit Insulin Glargine (Lantus) 10 unit SC [facility] Last Admin: 08/17/17 22:00 Dose: 10 u Ipratropium [place] (Atrovent) 0.5 mg IH RQ6 PRN PRN Reason: Shortness of Breath Last Admin: 08/15/17 08:07 Dose: 0.5 mg Lactobacillus Acidophilus (Bacid Acidophilus) 1 cap PO BID [facility] Last Admin: 08/17/17 18:32 Dose: 1 cap Metoprolol Succinate (Toprol Xl) 50 mg PO DAILY [facility] Last Admin: 08/17/17 13:29 Dose: 50 mg Midazolam HCl (Versed Inj) 2 mg IVP Q4H PRN PRN Reason: Anxiety Rosuvastatin Calcium (Crestor) 10 mg PO [facility] Last Admin: 08/17/17 22:00 Dose: 10 mg Senna/Docusate Sodium (Senokot S 50 Mg-8.6 Mg) 1 tab PO BID [facility] Last Admin: 08/17/17 18:32 Dose: 1 tab - Labs Labs: 08/18/17 06:16 08/18/17 06:16 PT 13.0 SECONDS (9.7-12.2) H 08/09/17 23:23 INR 1.2 08/09/17 23:23 APTT 55 SECONDS (21-34) H D 08/17/17 06:12 - Constitutional Appears: Non-toxic, No Acute Distress, Chronically Ill - Head Exam Head Exam: NORMAL INSPECTION - Eye Exam Eye Exam: Normal appearance - ENT Exam Additional comments: et tube - Neck Exam Neck Exam: Normal Inspection - Respiratory Exam Respiratory Exam: Decreased Breath Sounds (mechanical vent sounds) - Cardiovascular Exam Cardiovascular Exam: REGULAR RHYTHM, RRR - GI/Abdominal Exam GI & Abdominal Exam: Distended, Firm, Hypoactive Bowel Sounds - Extremities Exam Extremities Exam: Pedal Edema (3+ edema b/l) Assessment and Plan (1) Acute on chronic renal failure Status: Acute (2) CHF (congestive heart failure) Status: Acute (3) History of DVT (deep vein thrombosis) Status: Acute (4) CAD (coronary artery disease) Status: Acute (5) CKD (chronic kidney disease) Status: Acute - Assessment and Plan (Free Text) Assessment: maintain hd, aggressive uf as tolerated. pulmonary care / antibiotics
[2017-08-18] MEDS: Lactobacillus Acidophilus 500 MU Cap PO SCH ×2 (10:33→17:58)
[2017-08-18] MEDS: Meropenem 500 MG in Sodium Chloride 0.9% 100 ML IVPB SCH ×2 (10:33→21:30)
[2017-08-18] MEDS: Metoprolol Succinate 50 mg XL Tab PO SCH (10:33)
[2017-08-18] MEDS: Docusate-Senna 50 mg-8.6 mg Tab PO SCH ×2 (10:33→17:58)
[2017-08-18] MEDS: Enoxaparin 30 mg Syringe SC SCH (10:40)
[2017-08-18] MEDS: Piperacill/Tazo 2.25gm in Dex 2.25 GM/50 ML BAG IVPB SCH ×3 (12:00→22:29)
[2017-08-18 12:20] LABS: ABG MECHANICAL RATE 14; ARTERIAL BLOOD HGB O2 SAT 96.8 % (95.0-98.0); ATERIAL BLOOD GAS PEEP 14; CARBOXYHEMOGLOBIN 1.8 % (0.5-1.5); DRAW SITE L/B; HHB 0.6 % (0.0-5.0); METHEMOGLOBIN 0.8 % (0.0-3.0)
--- NOTE | 2017-08-18 12:23 | CP.PCM.PN ---
<Grace Diego - Last Filed: 08/19/17 09:26> Subjective - Date & Time of Evaluation Date of Evaluation: 08/18/17 Time of Evaluation: 10:00 - Subjective Subjective: Patient seen and examined at bedside. Patient remains intubated and sedated. No acute events reported overnight. Unable to obtain further ROS due to patient's intubation status. Objective - Vital Signs/Intake and Output Vital Signs (last 24 hours): Temp Pulse Resp BP Pulse Ox 98.4 F 82 18 117/51 L 99 08/18/17 04:00 08/18/17 06:07 08/18/17 05:07 08/18/17 06:07 08/18/17 06:07 Intake and Output: 08/18/17 08/18/17 06:59 18:59 Intake Total 984 100 Output Total 150 Balance 834 100 - Medications Medications: Current Medications Acetaminophen (Tylenol 650mg/20.3ml Solution Ud) 650 mg PO Q6 PRN PRN Reason: Temperature Last Admin: 08/16/17 12:31 Dose: 650 mg Albumin Human (Albumin Human 25% (12.5 Gm/50 Ml)) 12.5 gm IV Q2H [facility] Stop: 08/18/17 15:31 Albumin Human (Albumin Human 25% (12.5 Gm/50 Ml)) 12.5 gm IV Q2H [facility] Stop: 08/19/17 10:01 Albuterol/Ipratropium (Duoneb 3 Mg/0.5 Mg (3 Ml) Ud) 3 ml INH RQ4 [facility] Aspirin (Aspirin Chewable) 81 mg PO DAILY [facility] Last Admin: 08/18/17 10:33 Dose: 81 mg Clopidogrel Bisulfate (Plavix) 75 mg PO DAILY [facility] Last Admin: 08/18/17 10:34 Dose: 75 mg Enoxaparin Sodium (Lovenox) 30 mg SC DAILY [facility] Last Admin: 08/18/17 10:40 Dose: 30 mg Epoetin [place] (Procrit) 10,000 unit IV MWF [facility] Last Admin: 08/17/17 18:23 Dose: Not Given Famotidine (Pepcid) 20 mg PO DAILY [facility] Last Admin: 08/18/17 10:33 Dose: 20 mg Propofol (Diprivan) 1,000 mg in 100 mls @ 2.844 mls/hr IV .Q24H PRN; Protocol; 5 MCG/KG/MIN PRN Reason: TITRATE PER MD ORDER Last Admin: 08/18/17 10:39 Dose: 60 mcg/kg/min, 34.128 mls/hr Meropenem 500 mg/ Sodium (Chloride) 100 mls @ 100 mls/hr IVPB Q12 [facility] Last Admin: 08/18/17 10:33 Dose: 100 mls/hr Piperacillin Sod/Tazobactam Sod (Zosyn 2.25 Gm Iv Premix) 2.25 gm in 50 mls @ 100 mls/hr IVPB Q6H [facility] Insulin Aspart (Novolog) 0 unit SC Q6H [facility] PRN Reason: Protocol Last Admin: 08/18/17 11:55 Dose: 6 unit Insulin Glargine (Lantus) 10 unit SC [facility] Last Admin: 08/17/17 22:00 Dose: 10 u Ipratropium [place] (Atrovent) 0.5 mg IH RQ6 PRN PRN Reason: Shortness of Breath Last Admin: 08/15/17 08:07 Dose: 0.5 mg Lactobacillus Acidophilus (Bacid Acidophilus) 1 cap PO BID [facility] Last Admin: 08/18/17 10:33 Dose: 1 cap Metoprolol Succinate (Toprol Xl) 50 mg PO DAILY [facility] Last Admin: 08/18/17 10:33 Dose: 50 mg Midazolam HCl (Versed Inj) 2 mg IVP Q4H PRN PRN Reason: Anxiety Rosuvastatin Calcium (Crestor) 10 mg PO [facility] Last Admin: 08/17/17 22:00 Dose: 10 mg Senna/Docusate Sodium (Senokot S 50 Mg-8.6 Mg) 1 tab PO BID [facility] Last Admin: 08/18/17 10:33 Dose: 1 tab - Labs Labs: 08/18/17 06:16 08/18/17 06:16 PT 13.0 SECONDS (9.7-12.2) H 08/09/17 23:23 INR 1.2 08/09/17 23:23 APTT 55 SECONDS (21-34) H D 08/17/17 06:12 - Constitutional Appears: No Acute Distress, Chronically Ill - Head Exam Head Exam: NORMAL INSPECTION - Respiratory Exam Respiratory Exam: Decreased Breath Sounds, NORMAL BREATHING PATTERN - Cardiovascular Exam Cardiovascular Exam: REGULAR RHYTHM, +S1, +S2. absent: Murmur - GI/Abdominal Exam GI & Abdominal Exam: Soft, Normal Bowel Sounds - Extremities Exam Extremities Exam: Full ROM, Normal Capillary Refill, Normal Inspection. absent : Joint Swelling, Pedal Edema - Neurological Exam Neurological Exam: absent: Alert, Awake, Oriented x3 (sedated, intubated) - Psychiatric Exam Additional comments: sedated - Skin Skin Exam: Dry, Normal Color, Warm Assessment and Plan - Assessment and Plan (Free Text) Assessment: CAD, chest pain -No plans for cardiac cath at this time (acute respiratory failure and elevated Cr), history of abnormal stress test -Elevated Troponin likely due to chest compressions during code blue -No acute ST changes on EKG -Continue heparin drip, ASA, Plavix, Crestor, Lasix, Metoprolol -Echocardiogram from 08/08/17 showed left ventricle systolic function is severely impaired. EF: 25-30%; global hypokinesis of LV mild AR. MR is moderate. Moderate-severe pulmonary hypertesnion -Recommend full anticoagulation for Hx of DVT -High [id number] score (age, CHF, HTN, DM) Systolic CHF exacerbation -BNP 16855 on 08/06/17 -Continue heparin drip, ASA, Plavix, Crestor, Lasix, Metoprolol -Echocardiogram from 08/08/17 showed left ventricle systolic function is severely impaired. EF: 25-30%; global hypokinesis of LV mild AR. MR is moderate. Moderate-severe pulmonary hypertesnion <Sina Cortés - Last Filed: 08/20/17 07:33> Objective - Vital Signs/Intake and Output Vital Signs (last 24 hours): Temp Pulse Resp BP Pulse Ox 99.4 F 101 H 29 H 167/63 H 98 08/20/17 04:00 08/20/17 03:17 08/20/17 03:17 08/20/17 03:17 08/20/17 03:17 Intake and Output: 08/20/17 08/20/17 06:59 18:59 Intake Total 720 Output Total 65 Balance 655 - Medications Medications: Current Medications Acetaminophen (Tylenol 650mg/20.3ml Solution Ud) 650 mg PO Q6 PRN PRN Reason: Temperature Last Admin: 08/19/17 12:11 Dose: 650 mg Albuterol/Ipratropium (Duoneb 3 Mg/0.5 Mg (3 Ml) Ud) 3 ml INH RQ4 [facility] Last Admin: 08/20/17 03:15 Dose: 3 ml Aspirin (Aspirin Chewable) 81 mg PO DAILY [facility] Last Admin: 08/19/17 10:08 Dose: Not Given Enoxaparin Sodium (Lovenox) 30 mg SC DAILY [facility] Last Admin: 08/19/17 10:08 Dose: Not Given Epoetin Chen[place] (Procrit) 10,000 unit IV MWF [facility] Last Admin: 08/19/17 18:36 Dose: 10,000 unit Famotidine (Pepcid) 20 mg PO DAILY [facility] Last Admin: 08/19/17 10:08 Dose: Not Given Cefepime HCl 1 gm/ Dextrose 50 mls @ 100 mls/hr IVPB Q24H [facility] Last Admin: 08/19/17 12:48 Dose: 100 mls/hr Dobutamine HCl/Dextrose (Dobutamine/Dextrose 5% 500mg/250ml) 500 mg in 250 mls @ 7.02 mls/hr IV .Q24H [facility]; 2.5 MCG/KG/MIN PRN Reason: Protocol Last Admin: 08/19/17 12:11 Dose: 2.5 mcg/kg/min, 7.02 mls/hr Insulin Aspart (Novolog) 0 unit SC Q6 [facility] PRN Reason: Protocol Last Admin: 08/20/17 06:40 Dose: 8 unit Insulin Detemir (Levemir) 10 unit SC Q12H [facility] Last Admin: 08/20/17 00:11 Dose: 10 unit Ipratropium [place] (Atrovent) 0.5 mg IH RQ6 PRN PRN Reason: Shortness of Breath Last Admin: 08/15/17 08:07 Dose: 0.5 mg Lactobacillus Acidophilus (Bacid Acidophilus) 1 cap PO BID [facility] Last Admin: 08/19/17 17:18 Dose: 1 cap Metoprolol Succinate (Toprol Xl) 50 mg PO DAILY [facility] Last Admin: 08/19/17 10:07 Dose: 50 mg Midazolam HCl (Versed Inj) 2 mg IVP Q3H PRN PRN Reason: Agitation Last Admin: 08/19/17 23:16 Dose: 2 mg Rosuvastatin Calcium (Crestor) 10 mg PO HS [facility] Last Admin: 08/19/17 22:15 Dose: 10 mg - Labs Labs: 08/20/17 06:44 08/20/17 06:44 PT 13.0 SECONDS (9.7-12.2) H 08/09/17 23:23 INR 1.2 08/09/17 23:23 APTT 55 SECONDS (21-34) H D 08/17/17 06:12 Assessment and Plan - Assessment and Plan (Free Text) Assessment: Patient seen and evaluated with the Marketing Content Coordinator Plan of care documented
--- NOTE | 2017-08-18 12:44 | CP.PCM.PN ---
Subjective - Date & Time of Evaluation Date of Evaluation: 08/18/17 Time of Evaluation: 12:05 - Subjective Subjective: Vented Objective - Vital Signs/Intake and Output Vital Signs (last 24 hours): Temp Pulse Resp BP Pulse Ox 98.4 F 82 18 117/51 L 99 08/18/17 04:00 08/18/17 06:07 08/18/17 05:07 08/18/17 06:07 08/18/17 06:07 Intake and Output: 08/18/17 08/18/17 06:59 18:59 Intake Total 984 100 Output Total 150 Balance 834 100 - Medications Medications: Current Medications Acetaminophen (Tylenol 650mg/20.3ml Solution Ud) 650 mg PO Q6 PRN PRN Reason: Temperature Last Admin: 08/16/17 12:31 Dose: 650 mg Albumin Human (Albumin Human 25% (12.5 Gm/50 Ml)) 12.5 gm IV Q2H [facility] Stop: 08/18/17 15:31 Albumin Human (Albumin Human 25% (12.5 Gm/50 Ml)) 12.5 gm IV Q2H [facility] Stop: 08/19/17 10:01 Albuterol/Ipratropium (Duoneb 3 Mg/0.5 Mg (3 Ml) Ud) 3 ml INH RQ4 [facility] Aspirin (Aspirin Chewable) 81 mg PO DAILY [facility] Last Admin: 08/18/17 10:33 Dose: 81 mg Clopidogrel Bisulfate (Plavix) 75 mg PO DAILY [facility] Last Admin: 08/18/17 10:34 Dose: 75 mg Enoxaparin Sodium (Lovenox) 30 mg SC DAILY [facility] Last Admin: 08/18/17 10:40 Dose: 30 mg Epoetin [place] (Procrit) 10,000 unit IV MWF [facility] Last Admin: 08/17/17 18:23 Dose: Not Given Famotidine (Pepcid) 20 mg PO DAILY [facility] Last Admin: 08/18/17 10:33 Dose: 20 mg Propofol (Diprivan) 1,000 mg in 100 mls @ 2.844 mls/hr IV .Q24H PRN; Protocol; 5 MCG/KG/MIN PRN Reason: TITRATE PER MD ORDER Last Admin: 08/18/17 10:39 Dose: 60 mcg/kg/min, 34.128 mls/hr Meropenem 500 mg/ Sodium (Chloride) 100 mls @ 100 mls/hr IVPB Q12 [facility] Last Admin: 08/18/17 10:33 Dose: 100 mls/hr Piperacillin Sod/Tazobactam Sod (Zosyn 2.25 Gm Iv Premix) 2.25 gm in 50 mls @ 100 mls/hr IVPB Q6H [facility] Insulin Aspart (Novolog) 0 unit SC Q6H [facility] PRN Reason: Protocol Last Admin: 08/18/17 11:55 Dose: 6 unit Insulin Glargine (Lantus) 10 unit SC [facility] Last Admin: 08/17/17 22:00 Dose: 10 u Ipratropium [place] (Atrovent) 0.5 mg IH RQ6 PRN PRN Reason: Shortness of Breath Last Admin: 08/15/17 08:07 Dose: 0.5 mg Lactobacillus Acidophilus (Bacid Acidophilus) 1 cap PO BID [facility] Last Admin: 08/18/17 10:33 Dose: 1 cap Metoprolol Succinate (Toprol Xl) 50 mg PO DAILY [facility] Last Admin: 08/18/17 10:33 Dose: 50 mg Midazolam HCl (Versed Inj) 2 mg IVP Q4H PRN PRN Reason: Anxiety Rosuvastatin Calcium (Crestor) 10 mg PO [facility] Last Admin: 08/17/17 22:00 Dose: 10 mg Senna/Docusate Sodium (Senokot S 50 Mg-8.6 Mg) 1 tab PO BID [facility] Last Admin: 08/18/17 10:33 Dose: 1 tab - Labs Labs: 08/18/17 06:16 08/18/17 06:16 PT 13.0 SECONDS (9.7-12.2) H 08/09/17 23:23 INR 1.2 08/09/17 23:23 APTT 55 SECONDS (21-34) H D 08/17/17 06:12 - Head Exam Head Exam: ATRAUMATIC - Eye Exam Eye Exam: Normal appearance - ENT Exam ENT Exam: Mucous Membranes Dry - Respiratory Exam Respiratory Exam: NORMAL BREATHING PATTERN - Cardiovascular Exam Cardiovascular Exam: +S1, +S2 - GI/Abdominal Exam GI & Abdominal Exam: Normal Bowel Sounds Assessment and Plan (1) Anemia Assessment & Plan: chronic disease and renal disease on Procrit transfusion support PRN Status: Chronic (2) Leukocytosis Assessment & Plan: on antibiotics Status: Acute (3) Coagulopathy Status: Acute
--- NOTE | 2017-08-18 12:49 | CP.PCM.PN ---
Subjective - Date & Time of Evaluation Date of Evaluation: 08/17/17 Time of Evaluation: 11:00 - Subjective Subjective: Vented Objective - Vital Signs/Intake and Output Vital Signs (last 24 hours): Temp Pulse Resp BP Pulse Ox 98.4 F 82 18 117/51 L 99 08/18/17 04:00 08/18/17 06:07 08/18/17 05:07 08/18/17 06:07 08/18/17 06:07 Intake and Output: 08/18/17 08/18/17 06:59 18:59 Intake Total 984 100 Output Total 150 Balance 834 100 - Medications Medications: Current Medications Acetaminophen (Tylenol 650mg/20.3ml Solution Ud) 650 mg PO Q6 PRN PRN Reason: Temperature Last Admin: 08/16/17 12:31 Dose: 650 mg Albumin Human (Albumin Human 25% (12.5 Gm/50 Ml)) 12.5 gm IV Q2H [facility] Stop: 08/18/17 15:31 Albumin Human (Albumin Human 25% (12.5 Gm/50 Ml)) 12.5 gm IV Q2H [facility] Stop: 08/19/17 10:01 Albuterol/Ipratropium (Duoneb 3 Mg/0.5 Mg (3 Ml) Ud) 3 ml INH RQ4 [facility] Aspirin (Aspirin Chewable) 81 mg PO DAILY [facility] Last Admin: 08/18/17 10:33 Dose: 81 mg Clopidogrel Bisulfate (Plavix) 75 mg PO DAILY [facility] Last Admin: 08/18/17 10:34 Dose: 75 mg Enoxaparin Sodium (Lovenox) 30 mg SC DAILY [facility] Last Admin: 08/18/17 10:40 Dose: 30 mg Epoetin [place] (Procrit) 10,000 unit IV MWF [facility] Last Admin: 08/17/17 18:23 Dose: Not Given Famotidine (Pepcid) 20 mg PO DAILY [facility] Last Admin: 08/18/17 10:33 Dose: 20 mg Propofol (Diprivan) 1,000 mg in 100 mls @ 2.844 mls/hr IV .Q24H PRN; Protocol; 5 MCG/KG/MIN PRN Reason: TITRATE PER MD ORDER Last Admin: 08/18/17 10:39 Dose: 60 mcg/kg/min, 34.128 mls/hr Meropenem 500 mg/ Sodium (Chloride) 100 mls @ 100 mls/hr IVPB Q12 [facility] Last Admin: 08/18/17 10:33 Dose: 100 mls/hr Piperacillin Sod/Tazobactam Sod (Zosyn 2.25 Gm Iv Premix) 2.25 gm in 50 mls @ 100 mls/hr IVPB Q6H [facility] Insulin Aspart (Novolog) 0 unit SC Q6H [facility] PRN Reason: Protocol Last Admin: 08/18/17 11:55 Dose: 6 unit Insulin Glargine (Lantus) 10 unit SC [facility] Last Admin: 08/17/17 22:00 Dose: 10 u Ipratropium [place] (Atrovent) 0.5 mg IH RQ6 PRN PRN Reason: Shortness of Breath Last Admin: 08/15/17 08:07 Dose: 0.5 mg Lactobacillus Acidophilus (Bacid Acidophilus) 1 cap PO BID [facility] Last Admin: 08/18/17 10:33 Dose: 1 cap Metoprolol Succinate (Toprol Xl) 50 mg PO DAILY [facility] Last Admin: 08/18/17 10:33 Dose: 50 mg Midazolam HCl (Versed Inj) 2 mg IVP Q4H PRN PRN Reason: Anxiety Rosuvastatin Calcium (Crestor) 10 mg PO [facility] Last Admin: 08/17/17 22:00 Dose: 10 mg Senna/Docusate Sodium (Senokot S 50 Mg-8.6 Mg) 1 tab PO BID [facility] Last Admin: 08/18/17 10:33 Dose: 1 tab - Labs Labs: 08/18/17 06:16 08/18/17 06:16 PT 13.0 SECONDS (9.7-12.2) H 08/09/17 23:23 INR 1.2 08/09/17 23:23 APTT 55 SECONDS (21-34) H D 08/17/17 06:12 - Head Exam Head Exam: ATRAUMATIC - Eye Exam Eye Exam: Normal appearance - ENT Exam ENT Exam: Mucous Membranes Dry - Respiratory Exam Respiratory Exam: NORMAL BREATHING PATTERN - Cardiovascular Exam Cardiovascular Exam: +S1, +S2 - GI/Abdominal Exam GI & Abdominal Exam: Normal Bowel Sounds - Extremities Exam Extremities Exam: Normal Inspection Assessment and Plan (1) Anemia Assessment & Plan: chronic disease and and renal disease on Procrit Status: Chronic (2) Leukocytosis Assessment & Plan: on antibiotics Status: Acute (3) Coagulopathy Assessment & Plan: nutritional Status: Acute
--- NOTE | 2017-08-18 13:09 | CP.PCM.PN ---
Subjective - Date & Time of Evaluation Date of Evaluation: 08/18/17 Time of Evaluation: 12:45 - Subjective Subjective: Hospitalist Progress Note Patient was seen and examined at 12:45 PM 08/18/17 ICU Bed #5. 77 year old male with extensive medical history (please see Assessment and Plans below) was admitted on 08/06/17 for evaluation of SOB and Chest Pain. He was planned for Cardiac Catheterization on 08/09/17 due to his elevated Cr. Patient then had Acute Respiratory Failure and had to be intubated and placed on vent. Please see details below. ROS are not possible as patient is currently intubated/on ventilator. Exam: - Head Exam Head Exam: NORMAL INSPECTION - Eye Exam Eye Exam: could not evaluate EOM due to patient's current status Pupil Exam: round, equal, and reactive to light - Respiratory Exam Respiratory Exam: Decreased Breath Sounds however they are clearer today than before Additional comments: intubated on vent - Cardiovascular Exam Cardiovascular Exam: REGULAR RHYTHM, +S1, +S2 - GI/Abdominal Exam GI & Abdominal Exam: Distended, Soft, Normal Bowel Sounds, could not palpate liver and spleen. absent: Firm, Guarding, Rigid, Tenderness, Rebound Additional comments: obese habitus - Extremities Exam Extremities Exam: Normal Capillary Refill, Pedal Edema. absent: Tenderness Additional comments: Prevalon boots b/l - Neurological Exam Additional comments: sedated - Skin Skin Exam: Dry, Normal Color, Warm Assessment and Plan - Assessment and Plan (Free Text) Assessment: (1) Acute Respiratory Failure ARDS Cardiac Arrest Pulmonary Edema NONSTEMI Assessment and Plan: * Code Blue on 08/10: asystole, cardiopulmonary resuscitative measures initiated , requiring 3 epis, bicarbonate, ROSC achieved and intubated and brought to the ICU for further management * 08/10: Central line placed by ICU; placed on tridil drip; heparin drip c/w * 08/11: Patient placed on Lasix IV. On heparin drip. No plans for cardiac cath at time time. Chest Xray (08/11/17): NG tube extending into the stomach. Endotracheal tube extending into the mild thoracic trachea. Left sided pacemaker. multiple overlying external wires and tubing, Moderate severe venous congestion with prominent confluent airspace opacities in the mid to lower lung zones with associated small to moderate bilateral pleural effusions. scattered nodular densities in both lungs. Cardiomegaly. Degenerative changes in the spine and shoulders. * 08/12: Chest xray (08/12/17): right basilar opacity. Small right pleural effusion. Lines and tubes unchanged.-->C/w Lasix. Discussed with Dr. Mena (pulm) , recommended for CT Chest w/o contrast for possible ARDS. increased peep 10 * 08/13: pending chest /abdomen xray for this morning; self-extubated and reintubated overnight; off tridil drip secondary to hypotension post intubation ; on heparin drip * CT Chest/Abdomen/Pelvis (08/13): moderate to large bilateral pleural effusions largeer on thr right associated with atelectasis at lower lobes. Nonspecific ground-glass opacities in the upper lobe new may be due to pulmonary vascular congestion. moderately cardiomegaly. No evidence of bowel obstruction. Moderately to markedly enlarged prostate. nonobstructing calculus at mid to lower pole left kidney. Gallstone without evidence of cholecystitis. Scattered diverticulosis without evidence of diverticulitis * 08/18: I reviewed the CT Chest 08/13 and there is mention of moderate to large effusions bilaterally but no mention of loculated effusion. Repeat CT Chest has been ordered. I also spoke with CardioThoracic Surgeon Dr. Lopez and his team will evaluate patient for any intervention in this regard. * Patient is for Tracheostomy 08/19/17 (2) Chest pain Assessment and Plan: * Cardiology (Dr. Cortés) on board-->help appreciated * All trops WNL; Troponin positive in light of CPR * EKG x2 = Sinus tachycardia notes with possible left atrial enlargement; no apparent T segment elevations in contiguous leads * Patient was Heparin Drip but this was discontinued 08/17/17 * Patient's cardiac catherization cancelled secondary to rise in creatinine (2.3 ) on 08/09/17. * Patient has hx of abnormal stress test. Discussed with cardiology and nephrology given change in Cr on 08/09. * Echocardiogram (08/08/17): left ventricle systolic function is severely impaired. EF: 25-30%; global hypokinesis of left ventricle mild aortic regurgitation. Mitral regurgitation is moderate. Moderate-severe pulmonary hypertesnion * Hx of ACID * Aspirin 81mg PO daily * Plavix 75mg PO daily * Crestor 10mg POqHS * Metoprolol Succinate 50 mg PO 1x/day was placed on Hold 08/17/17 * Off Arb secondary to ARF * TSH: 1.16; T4: 1.53 (3) Acute Systolic CHF exacerbation Assessment and Plan: * Transferred to the ICU on 08/10 following cardiac arrest and intubation. * Echocardiogram (08/08/17): left ventrcile systolic function is severely impaired. EF: 25-30%; global hypokinesis of left ventricle mild aortic regurgitation. Mitral regurgitation is moderate. Moderate-severe pulmonary hypertension * Height of bed at 45 degrees, Strict ins and outs, monitor daily weights * Aspirin 81mg PO daily * Plavix 75mg PO daily * Crestor 10mg POqHS * Metoprolol Succinate 50mg PO 1x/day was placed on Hold 08/17/17 * Off Arb secondary to ARF * Has been receiving HD 08/16/17 and 08/18/17 to help reduce the pulmonary congestion Status: Acute (4) Pneumonia Assessment and Plan: * Pulmonary (Dr. Mena) on board-->help appreciated * Infectious Disease (Dr. Lawrence)-->help appreciated * Rapid A strep, Influenza A and B studies, Urine Legionella, Mycoplasma studies = Negative * Florastor 250mg PO bid * +Strep Pneumoniae in the urine * 08/12: Will repeat urine studies and exchange out the jaquez * 08/15: Meropenem 500mg IV Q 8 hours (active since 08/14/17) and Zosyn 2.25 mg IV Q6H (08/13/17) * 08/18: Chest X Ray shows scattered dense confluent pathcy areas of consolidative change seen throughout both lungs most prominent in left lung and right lung base Status: Acute (5) CAD (coronary artery disease) Assessment and Plan: * Hx of cardiac stent in the past * Cardiac cath on hold given events on 08/10 Status: Acute (6) HTN (hypertension) Assessment and Plan: * Metoprolol XL 50 mg PO 1x/day was placed on hold 08/17/17 as patient's blood pressure has been at the low end of normal Status: Chronic (7) CKD (chronic kidney disease) Assessment and Plan: * Dr. Miranda (nephrology) consulted on the case * Hx of CKD * GFR 45 which appears to be around baseline * Stopped ARB given rise in CR * Off IV fluids given pulmonary edema * Monitor in and output: has not been producing significant amount of urine and HD was recommended by Nephrology * Receiving HD through Left Femoral Catheter Status: Acute (8) Diabetes mellitus Assessment and Plan: * Accuchecks Q6H * A1c 8.4 * Lantus 10 units subqHS * Insulin Aspart 6 units subq Q6H Status: Chronic (9) HLD (hyperlipidemia) Assessment and Plan: * On Crestor 10 mg Po HS Status: Chronic (10) Constipation Assessment and Plan: * Having bowel movements per nursing notes (08/14/17) * Senokot 50/8.6 1 tab PO 2x/day * 08/12: Will given ducolax suppository X1 * 08/13: has not had bowel movement; ordered for abdominal/chest xray in light of abdominal distension * CT Chest/Abdomen/Pelvis (08/13): moderate to large bilateral pleural effusions largeer on thr right associated with atelectasis at lower lobes. Nonspecific ground-glass opacities in the upper lobe new may be due to pulmonary vascular congestion. moderately cardiomegaly. No evidence of bowel obstruction. Moderately to markedly enlarged prostate. nonobstructing calculus at mid to lower pole left kidney. Gallstone without evidence of cholecystitis. Scattered diverticulosis without evidence of diverticulitis * 08/14: Patient is not obstructed per review CT scan Status: Chronic (11) Anemia Assessment and Plan: * Heme-oncology (Dr. Giles bender) on board-->help appreciated * Likely iron deficiency anemia based on prior admissions * Ferritin 27.4, Iron 22, TIBC 322, % Saturation 7 * Ferric Sodium Gluconate 125mg IVPB daily (active 08/08-08/16) * Procrit 10,000 units M-W- * Monitor Hgb/Hct: stable Status: Chronic (12) History of DVT (deep vein thrombosis) Assessment and Plan: * Patient was previously on Eliquis for a prior history of DVT. * Repeat dopplers 08/09/17 are negative for DVT * Off Heparin Drip 08/17/17 Status: Acute (13) UTI * Infectious disease (Dr. Lawrence) on board-->help appreciated * Exchange jaquez out and repeat urine cultures * Urine Culture 08/12/17 showed Gram Negative Rods: follow up identification and sensitivities * Meropenem 500mg IV Q 12hours (active since 08/14/17) to cover for UTI per ID * Repeat Urine Culture ordered 08/18/17 (14) Confusion; Alzheimer's Dementia Assessment and Plan: * Per daughter, patient has been getting bouts of confusion over the past year but appears at baseline. Patient has not seen formal neurology as outpatient per daughter. Per , prior to event, noted Alzheimers' disease dx one year ago * CT head w/o contrast (08/10/17):acute os subacute lacune infarct is not excluded in the left basal ganglia inferiorly with definitive chronic lacune identified in the right basal ganglia superiorly. No acute or subacute lobar brain infarction is appreciable by standard CT criteria. Mild age-related neuro degenerative changes are identifed. No acute intracranial hemorrhage or mass is identified throughout * 08/11: Patient gets agitated and will fight to pull the intubation tube out per nursing. Was placed on sedation and Ativan PRN * 08/12: patient is responsive to questions, able to move all extremities, off sedation. Patient is on PRN Versed and Ativan PRN. Will respond to yes and no questions * 08/13: Back on sedation since reintubation; patient is moving all extremities * 08/18: Versed 2 mg IV Q4H PRN Anxiety (15) Prophylactic measure Assessment and Plan: * Pepcid 20mg PO daily * Lovenox 30 mg SC 1x/day * Glucerna 1.5 at 40 ml/hour via NGT * Bacid 1 cap NGT 2x/day * Atrovent Q6H PRN * Tylenol 650 mg PO Q6H PRN Temperature * Albumin 25% 12.5 gm IV Q2H x 3 doses on 08/18/17 and 08/19/17 Cullen Barth D.O. Objective - Vital Signs/Intake and Output Vital Signs (last 24 hours): Temp Pulse Resp BP Pulse Ox 98.4 F 82 18 117/51 L 99 08/18/17 04:00 08/18/17 06:07 08/18/17 05:07 08/18/17 06:07 08/18/17 06:07 Intake and Output: 08/18/17 08/18/17 06:59 18:59 Intake Total 984 100 Output Total 150 Balance 834 100 - Medications Medications: Current Medications Acetaminophen (Tylenol 650mg/20.3ml Solution Ud) 650 mg PO Q6 PRN PRN Reason: Temperature Last Admin: 08/16/17 12:31 Dose: 650 mg Albumin Human (Albumin Human 25% (12.5 Gm/50 Ml)) 12.5 gm IV Q2H LU[facility] FERNANDO Stop: 08/18/17 15:31 Albumin Human (Albumin Human 25% (12.5 Gm/50 Ml)) 12.5 gm IV Q2H [facility] Stop: 08/19/17 10:01 Albuterol/Ipratropium (Duoneb 3 Mg/0.5 Mg (3 Ml) Ud) 3 ml INH RQ4 LUIS FERNANDO Aspirin (Aspirin Chewable) 81 mg PO DAILY [facility] Last Admin: 08/18/17 10:33 Dose: 81 mg Clopidogrel Bisulfate (Plavix) 75 mg PO DAILY [facility] Last Admin: 08/18/17 10:34 Dose: 75 mg Enoxaparin Sodium (Lovenox) 30 mg SC DAILY [facility] Last Admin: 08/18/17 10:40 Dose: 30 mg Epoetin [place] (Procrit) 10,000 unit IV MWF [facility] Last Admin: 08/17/17 18:23 Dose: Not Given Famotidine (Pepcid) 20 mg PO DAILY [facility] Last Admin: 08/18/17 10:33 Dose: 20 mg Propofol (Diprivan) 1,000 mg in 100 mls @ 2.844 mls/hr IV .Q24H PRN; Protocol; 5 MCG/KG/MIN PRN Reason: TITRATE PER MD ORDER Last Admin: 08/18/17 10:39 Dose: 60 mcg/kg/min, 34.128 mls/hr Meropenem 500 mg/ Sodium (Chloride) 100 mls @ 100 mls/hr IVPB Q12 [facility] Last Admin: 08/18/17 10:33 Dose: 100 mls/hr Piperacillin Sod/Tazobactam Sod (Zosyn 2.25 Gm Iv Premix) 2.25 gm in 50 mls @ 100 mls/hr IVPB Q6H LUIS FERNANDO Insulin Aspart (Novolog) 0 unit SC Q6H LUIS FERNANDO PRN Reason: Protocol Last Admin: 08/18/17 11:55 Dose: 6 unit Insulin Glargine (Lantus) 10 unit SC HS [facility] Last Admin: 08/17/17 22:00 Dose: 10 u Ipratropium [place] (Atrovent) 0.5 mg IH RQ6 PRN PRN Reason: Shortness of Breath Last Admin: 08/15/17 08:07 Dose: 0.5 mg Lactobacillus Acidophilus (Bacid Acidophilus) 1 cap PO BID [facility] Last Admin: 08/18/17 10:33 Dose: 1 cap Metoprolol Succinate (Toprol Xl) 50 mg PO DAILY [facility] Last Admin: 08/18/17 10:33 Dose: 50 mg Midazolam HCl (Versed Inj) 2 mg IVP Q4H PRN PRN Reason: Anxiety Rosuvastatin Calcium (Crestor) 10 mg PO [facility] Last Admin: 08/17/17 22:00 Dose: 10 mg Senna/Docusate Sodium (Senokot S 50 Mg-8.6 Mg) 1 tab PO BID [facility] Last Admin: 08/18/17 10:33 Dose: 1 tab - Labs Labs: 08/18/17 06:16 08/18/17 06:16 PT 13.0 SECONDS (9.7-12.2) H 08/09/17 23:23 INR 1.2 08/09/17 23:23 APTT 55 SECONDS (21-34) H D 08/17/17 06:12
--- NOTE | 2017-08-18 13:52 | CP.PCM.CON ---
<Renetta HensonBart - Last Filed: 08/18/17 14:36> History of Present Illness - History of Present Illness History of Present Illness: Patient is a 77 year old male with past medical history of CAD w/stent, HTN, HLD , DM, ESRD, anemia, pacemaker, and DVT, who is consulted for a tracheostomy. Patient originally presented to the ED for chest pain and shortness of breath. Patient was planned for a cardiac catheterization on 08/09/17, which was canceled due to worsening kidney function. Patient then went into cardiac arrest /asystole. Patient had ROSC, intubated, and transferred to ICU. Patient has severe ARDS. History obtained from EMR. Review of systems not obtained because patient is intubated (vented on FiO2 80%, PEEP 14, RR 14, tidal volume 450) and sedated. As per nurse, patient was alert and agitated prior to sedation. PMHX: CAD w/stent, HTN, DM, CKD, anemia, pacemaker, and DVT SurgHx: abdominal hernia repair, pacemaker placement, cardiac stent, prior cardiac cath Allergies: NKDA Medications: See EMR Review of Systems - Review of Systems Systems not reviewed;Unavailable: Intubated Review of Systems: Sedated Past Patient History - Infectious Disease Hx of Infectious Diseases: None - Past Medical History & Family History Past Medical History?: Yes - Past Social History Smoking Status: Never Smoked Alcohol: None Drugs: Denies Home Situation {Lives}: With Family - CARDIAC Hx Congestive Heart Failure: Yes Hx Hypercholesterolemia: Yes Hx Hypertension: Yes - PULMONARY Hx Asthma: Yes - RENAL Hx Chronic Kidney Disease: Yes (REANAL INSUFFICIENCY) Hx Kidney Stones: Yes - ENDOCRINE/METABOLIC Hx Diabetes Mellitus Type 2: Yes - MUSCULOSKELETAL/RHEUMATOLOGICAL Hx Arthritis: Yes - GENITOURINARY/GYNECOLOGICAL Hx Genitourinary Disorders: Yes Hx Prostate Problems: Yes (ELEVATED PSA) - PSYCHIATRIC Hx Anxiety: Yes Hx Depression: Yes Hx Substance Use: No - SURGICAL HISTORY Hx Surgeries: Yes Other/Comment: pacemaker on - ANESTHESIA Hx Anesthesia: Yes Hx Anesthesia Reactions: No Hx Malignant Hyperthermia: No Meds Allergies/Adverse Reactions: Allergies Allergy/AdvReac Type Severity Reaction Status Date / Time No Known Allergies Allergy Verified 08/06/17 13:20 - Medications Medications: Current Medications Acetaminophen (Tylenol 650mg/20.3ml Solution Ud) 650 mg PO Q6 PRN PRN Reason: Temperature Last Admin: 08/16/17 12:31 Dose: 650 mg Albumin Human (Albumin Human 25% (12.5 Gm/50 Ml)) 12.5 gm IV Q2H [facility] Stop: 08/18/17 15:31 Albumin Human (Albumin Human 25% (12.5 Gm/50 Ml)) 12.5 gm IV Q2H [facility] Stop: 08/19/17 10:01 Albuterol/Ipratropium (Duoneb 3 Mg/0.5 Mg (3 Ml) Ud) 3 ml INH RQ4 [facility] Aspirin (Aspirin Chewable) 81 mg PO DAILY [facility] Last Admin: 08/18/17 10:33 Dose: 81 mg Clopidogrel Bisulfate (Plavix) 75 mg PO DAILY [facility] Last Admin: 08/18/17 10:34 Dose: 75 mg Enoxaparin Sodium (Lovenox) 30 mg SC DAILY [facility] Last Admin: 08/18/17 10:40 Dose: 30 mg Epoetin Chencho (Procrit) 10,000 unit IV MWF [facility] Last Admin: 08/17/17 18:23 Dose: Not Given Famotidine (Pepcid) 20 mg PO DAILY [facility] Last Admin: 08/18/17 10:33 Dose: 20 mg Propofol (Diprivan) 1,000 mg in 100 mls @ 2.844 mls/hr IV .Q24H PRN; Protocol; 5 MCG/KG/MIN PRN Reason: TITRATE PER MD ORDER Last Admin: 08/18/17 10:39 Dose: 60 mcg/kg/min, 34.128 mls/hr Meropenem 500 mg/ Sodium (Chloride) 100 mls @ 100 mls/hr IVPB Q12 [facility] Last Admin: 08/18/17 10:33 Dose: 100 mls/hr Piperacillin Sod/Tazobactam Sod (Zosyn 2.25 Gm Iv Premix) 2.25 gm in 50 mls @ 100 mls/hr IVPB Q6H [facility] Insulin Aspart (Novolog) 0 unit SC Q6H [facility] PRN Reason: Protocol Last Admin: 08/18/17 11:55 Dose: 6 unit Insulin Glargine (Lantus) 10 unit SC HS [facility] Last Admin: 08/17/17 22:00 Dose: 10 u Ipratropium [place] (Atrovent) 0.5 mg IH RQ6 PRN PRN Reason: Shortness of Breath Last Admin: 08/15/17 08:07 Dose: 0.5 mg Lactobacillus Acidophilus (Bacid Acidophilus) 1 cap PO BID [facility] Last Admin: 08/18/17 10:33 Dose: 1 cap Metoprolol Succinate (Toprol Xl) 50 mg PO DAILY [facility] Last Admin: 08/18/17 10:33 Dose: 50 mg Midazolam HCl (Versed Inj) 2 mg IVP Q4H PRN PRN Reason: Anxiety Rosuvastatin Calcium (Crestor) 10 mg PO HS [facility] Last Admin: 08/17/17 22:00 Dose: 10 mg Senna/Docusate Sodium (Senokot S 50 Mg-8.6 Mg) 1 tab PO BID [facility] Last Admin: 08/18/17 10:33 Dose: 1 tab Physical Exam - Head Exam Head Exam: ATRAUMATIC, NORMOCEPHALIC - ENT Exam ENT Exam: Mucous Membranes Dry - Respiratory Exam Respiratory Exam: Rhonchi. absent: Clear to Auscultation Bilateral, Wheezes Additional comments: Intubated. - Cardiovascular Exam Cardiovascular Exam: REGULAR RHYTHM, +S1, +S2. absent: Bradycardia, Tachycardia - GI/Abdominal Exam GI & Abdominal Exam: Distended, Normal Bowel Sounds, Soft - Extremities Exam Additional comments: RUE & LUE: pitting edema - Neurological Exam Additional comments: Sedated - Skin Skin Exam: Dry, Intact, Normal Color, Warm Results - Vital Signs Recent Vital Signs: Last Vital Signs Temp 98.4 F 08/18/17 04:00 Pulse 82 08/18/17 06:07 Resp 18 08/18/17 05:07 BP 117/51 L 08/18/17 06:07 Pulse Ox 99 08/18/17 06:07 - Labs Result Diagrams: 08/18/17 06:16 08/18/17 06:16 Labs: Laboratory Results - last 24 hr 08/16/17 08/17/17 08/17/17 05:52 16:33 16:33 WBC RBC Hgb Hct MCV MCH MCHC RDW Plt Count MPV Neut % (Auto) Lymph % (Auto) [place] % (Auto) Eos % (Auto) Baso % (Auto) Neut # Lymph # [place] # Eos # Baso # Puncture Site Rb pCO2 41 pO2 49 L HCO3 26.1 ABG pH 7.42 ABG Total CO2 27.9 ABG O2 Saturation 87.4 L ABG Base Excess 1.9 ABG Hemoglobin ABG Carboxyhemoglobin POC ABG HHb (Measured) ABG Methemoglobin Uriel Test Na A-a O2 Difference 399.0 Respiratory Index 8.1 Hgb O2 Saturation Vent Mode Prvc Mechanical Rate 10 FiO2 70.0 Tidal Volume 500 PEEP 8 Sodium Potassium Chloride Carbon Dioxide Anion Gap BUN Creatinine Est GFR ( Amer) Est GFR (Non-Af Amer) POC Glucose (mg/dL) Random Glucose Calcium Phosphorus Magnesium % Saturation 14 L Ferritin 682.0 Total Bilirubin AST ALT Alkaline Phosphatase Total Protein Albumin Globulin Albumin/Globulin Ratio 08/17/17 08/18/17 08/18/17 17:37 00:23 05:16 WBC RBC Hgb Hct MCV MCH MCHC RDW Plt Count MPV Neut % (Auto) Lymph % (Auto) [place] % (Auto) Eos % (Auto) Baso % (Auto) Neut # Lymph # [place] # Eos # Baso # Puncture Site Rr pCO2 47 H pO2 80 HCO3 26.1 ABG pH 7.37 ABG Total CO2 28.6 H ABG O2 Saturation 97.4 ABG Base Excess 1.5 ABG Hemoglobin 9.6 L ABG Carboxyhemoglobin 2.2 H POC ABG HHb (Measured) 2.5 ABG Methemoglobin 1.2 Uriel Test Pos A-a O2 Difference 574.0 Respiratory Index 7.2 Hgb O2 Saturation 94.2 L Vent Mode Prvc Mechanical Rate 10 FiO2 100.0 Tidal Volume 500 PEEP 8 Sodium Potassium Chloride Carbon Dioxide Anion Gap BUN Creatinine Est GFR ( Amer) Est GFR (Non-Af Amer) POC Glucose (mg/dL) 211 H 260 H Random Glucose Calcium Phosphorus Magnesium % Saturation Ferritin Total Bilirubin AST ALT Alkaline Phosphatase Total Protein Albumin Globulin Albumin/Globulin Ratio 08/18/17 08/18/17 08/18/17 05:45 06:16 06:16 WBC 14.3 H RBC 3.88 L Hgb 9.0 L Hct 28.8 L MCV 74.1 L MCH 23.1 L MCHC 31.1 L RDW 22.5 H Plt Count 328 MPV 9.3 Neut % (Auto) 76.9 H Lymph % (Auto) 10.7 L [place] % (Auto) 6.9 Eos % (Auto) 5.0 H Baso % (Auto) 0.5 Neut # 11.0 H Lymph # 1.5 [place] # 1.0 H Eos # 0.7 Baso # 0.1 Puncture Site pCO2 pO2 HCO3 ABG pH ABG Total CO2 ABG O2 Saturation ABG Base Excess ABG Hemoglobin ABG Carboxyhemoglobin POC ABG HHb (Measured) ABG Methemoglobin Uriel Test A-a O2 Difference Respiratory Index Hgb O2 Saturation Vent Mode Mechanical Rate FiO2 Tidal Volume PEEP Sodium 138 Potassium 3.8 Chloride 99 Carbon Dioxide 26 Anion Gap 17 BUN 62 H Creatinine 2.7 H Est GFR ( Amer) 28 Est GFR (Non-Af Amer) 23 POC Glucose (mg/dL) 263 H Random Glucose 211 H Calcium 7.9 L Phosphorus 5.7 H Magnesium 2.5 H % Saturation Ferritin Total Bilirubin 0.5 AST 92 H ALT 71 Alkaline Phosphatase 116 Total Protein 6.2 L Albumin 3.0 L Globulin 3.2 Albumin/Globulin Ratio 0.9 L 08/18/17 08/18/17 11:39 12:05 WBC RBC Hgb Hct MCV MCH MCHC RDW Plt Count MPV Neut % (Auto) Lymph % (Auto) [place] % (Auto) Eos % (Auto) Baso % (Auto) Neut # Lymph # [place] # Eos # Baso # Puncture Site L/b pCO2 38 pO2 146 H HCO3 24.6 ABG pH 7.41 ABG Total CO2 25.3 ABG O2 Saturation 99.4 H ABG Base Excess -0.4 ABG Hemoglobin 10.2 L ABG Carboxyhemoglobin 1.8 H POC ABG HHb (Measured) 0.6 ABG Methemoglobin 0.8 Uriel Test Na A-a O2 Difference 520.0 Respiratory Index 3.6 Hgb O2 Saturation 96.8 Vent Mode Mechanical Rate 14 FiO2 100.0 Tidal Volume 450 PEEP 14 Sodium Potassium Chloride Carbon Dioxide Anion Gap BUN Creatinine Est GFR ( Amer) Est GFR (Non-Af Amer) POC Glucose (mg/dL) 271 H Random Glucose Calcium Phosphorus Magnesium % Saturation Ferritin Total Bilirubin AST ALT Alkaline Phosphatase Total Protein Albumin Globulin Albumin/Globulin Ratio Assessment & Plan - Assessment and Plan (Free Text) Assessment: 77 year old male with severe ARDs and intubated, consulted for tracheostomy. - Patient planned for tracheostomy tomorrow, 08/19/17. - Hold tube feeding at midnight. - Continue medical management as per ICU team. <Wettimuny,Diaz - Last Filed: 08/18/17 15:56> Meds - Medications Medications: Current Medications Acetaminophen (Tylenol 650mg/20.3ml Solution Ud) 650 mg PO Q6 PRN PRN Reason: Temperature Last Admin: 08/16/17 12:31 Dose: 650 mg Albumin Human (Albumin Human 25% (12.5 Gm/50 Ml)) 12.5 gm IV Q2H [facility] Stop: 08/19/17 10:01 Albuterol/Ipratropium (Duoneb 3 Mg/0.5 Mg (3 Ml) Ud) 3 ml INH RQ4 [facility] Aspirin (Aspirin Chewable) 81 mg PO DAILY [facility] Last Admin: 08/18/17 10:33 Dose: 81 mg Clopidogrel Bisulfate (Plavix) 75 mg PO DAILY [facility] Last Admin: 08/18/17 10:34 Dose: 75 mg Enoxaparin Sodium (Lovenox) 30 mg SC DAILY [facility] Last Admin: 08/18/17 10:40 Dose: 30 mg Epoetin [place] (Procrit) 10,000 unit IV MWF [facility] Last Admin: 08/17/17 18:23 Dose: Not Given Famotidine (Pepcid) 20 mg PO DAILY [facility] Last Admin: 08/18/17 10:33 Dose: 20 mg Propofol (Diprivan) 1,000 mg in 100 mls @ 2.844 mls/hr IV .Q24H PRN; Protocol; 5 MCG/KG/MIN PRN Reason: TITRATE PER MD ORDER Last Admin: 08/18/17 14:20 Dose: 60 mcg/kg/min, 34.128 mls/hr Meropenem 500 mg/ Sodium (Chloride) 100 mls @ 100 mls/hr IVPB Q12 [facility] Last Admin: 08/18/17 10:33 Dose: 100 mls/hr Piperacillin Sod/Tazobactam Sod (Zosyn 2.25 Gm Iv Premix) 2.25 gm in 50 mls @ 100 mls/hr IVPB Q6H [facility] Last Admin: 08/18/17 12:00 Dose: 100 mls/hr Insulin Aspart (Novolog) 0 unit SC Q6H [facility] PRN Reason: Protocol Last Admin: 08/18/17 11:55 Dose: 6 unit Insulin Glargine (Lantus) 10 unit SC [facility] Last Admin: 08/17/17 22:00 Dose: 10 u Ipratropium [place] (Atrovent) 0.5 mg IH RQ6 PRN PRN Reason: Shortness of Breath Last Admin: 08/15/17 08:07 Dose: 0.5 mg Lactobacillus Acidophilus (Bacid Acidophilus) 1 cap PO BID [facility] Last Admin: 08/18/17 10:33 Dose: 1 cap Metoprolol Succinate (Toprol Xl) 50 mg PO DAILY [facility] Last Admin: 08/18/17 10:33 Dose: 50 mg Midazolam HCl (Versed Inj) 2 mg IVP Q4H PRN PRN Reason: Anxiety Rosuvastatin Calcium (Crestor) 10 mg PO [facility] Last Admin: 08/17/17 22:00 Dose: 10 mg Senna/Docusate Sodium (Senokot S 50 Mg-8.6 Mg) 1 tab PO BID [facility] Last Admin: 08/18/17 10:33 Dose: 1 tab Results - Vital Signs Recent Vital Signs: Last Vital Signs Temp 99.5 F 08/18/17 12:00 Pulse 83 08/18/17 15:07 Resp 24 08/18/17 15:07 BP 133/51 L 08/18/17 15:07 Pulse Ox 99 08/18/17 15:07 - Labs Result Diagrams: 08/18/17 06:16 08/18/17 06:16 Labs: Laboratory Results - last 24 hr 08/16/17 08/17/17 08/17/17 05:52 16:33 16:33 WBC RBC Hgb Hct MCV MCH MCHC RDW Plt Count MPV Neut % (Auto) Lymph % (Auto) [place] % (Auto) Eos % (Auto) Baso % (Auto) Neut # Lymph # [place] # Eos # Baso # Puncture Site Rb pCO2 41 pO2 49 L HCO3 26.1 ABG pH 7.42 ABG Total CO2 27.9 ABG O2 Saturation 87.4 L ABG Base Excess 1.9 ABG Hemoglobin ABG Carboxyhemoglobin POC ABG HHb (Measured) ABG Methemoglobin Uriel Test Na A-a O2 Difference 399.0 Respiratory Index 8.1 Hgb O2 Saturation Vent Mode Prvc Mechanical Rate 10 FiO2 70.0 Tidal Volume 500 PEEP 8 Sodium Potassium Chloride Carbon Dioxide Anion Gap BUN Creatinine Est GFR ( Amer) Est GFR (Non-Af Amer) POC Glucose (mg/dL) Random Glucose Calcium Phosphorus Magnesium % Saturation 14 L Ferritin 682.0 Total Bilirubin AST ALT Alkaline Phosphatase Total Protein Albumin Globulin Albumin/Globulin Ratio 08/17/17 08/18/17 08/18/17 17:37 00:23 05:16 WBC RBC Hgb Hct MCV MCH MCHC RDW Plt Count MPV Neut % (Auto) Lymph % (Auto) [place] % (Auto) Eos % (Auto) Baso % (Auto) Neut # Lymph # [place] # Eos # Baso # Puncture Site Rr pCO2 47 H pO2 80 HCO3 26.1 ABG pH 7.37 ABG Total CO2 28.6 H ABG O2 Saturation 97.4 ABG Base Excess 1.5 ABG Hemoglobin 9.6 L ABG Carboxyhemoglobin 2.2 H POC ABG HHb (Measured) 2.5 ABG Methemoglobin 1.2 Uriel Test Pos A-a O2 Difference 574.0 Respiratory Index 7.2 Hgb O2 Saturation 94.2 L Vent Mode Prvc Mechanical Rate 10 FiO2 100.0 Tidal Volume 500 PEEP 8 Sodium Potassium Chloride Carbon Dioxide Anion Gap BUN Creatinine Est GFR ( Amer) Est GFR (Non-Af Amer) POC Glucose (mg/dL) 211 H 260 H Random Glucose Calcium Phosphorus Magnesium % Saturation Ferritin Total Bilirubin AST ALT Alkaline Phosphatase Total Protein Albumin Globulin Albumin/Globulin Ratio 08/18/17 08/18/17 08/18/17 05:45 06:16 06:16 WBC 14.3 H RBC 3.88 L Hgb 9.0 L Hct 28.8 L MCV 74.1 L MCH 23.1 L MCHC 31.1 L RDW 22.5 H Plt Count 328 MPV 9.3 Neut % (Auto) 76.9 H Lymph % (Auto) 10.7 L [place] % (Auto) 6.9 Eos % (Auto) 5.0 H Baso % (Auto) 0.5 Neut # 11.0 H Lymph # 1.5 [place] # 1.0 H Eos # 0.7 Baso # 0.1 Puncture Site pCO2 pO2 HCO3 ABG pH ABG Total CO2 ABG O2 Saturation ABG Base Excess ABG Hemoglobin ABG Carboxyhemoglobin POC ABG HHb (Measured) ABG Methemoglobin Uriel Test A-a O2 Difference Respiratory Index Hgb O2 Saturation Vent Mode Mechanical Rate FiO2 Tidal Volume PEEP Sodium 138 Potassium 3.8 Chloride 99 Carbon Dioxide 26 Anion Gap 17 BUN 62 H Creatinine 2.7 H Est GFR ( Amer) 28 Est GFR (Non-Af Amer) 23 POC Glucose (mg/dL) 263 H Random Glucose 211 H Calcium 7.9 L Phosphorus 5.7 H Magnesium 2.5 H % Saturation Ferritin Total Bilirubin 0.5 AST 92 H ALT 71 Alkaline Phosphatase 116 Total Protein 6.2 L Albumin 3.0 L Globulin 3.2 Albumin/Globulin Ratio 0.9 L 08/18/17 08/18/17 11:39 12:05 WBC RBC Hgb Hct MCV MCH MCHC RDW Plt Count MPV Neut % (Auto) Lymph % (Auto) [place] % (Auto) Eos % (Auto) Baso % (Auto) Neut # Lymph # [place] # Eos # Baso # Puncture Site L/b pCO2 38 pO2 146 H HCO3 24.6 ABG pH 7.41 ABG Total CO2 25.3 ABG O2 Saturation 99.4 H ABG Base Excess -0.4 ABG Hemoglobin 10.2 L ABG Carboxyhemoglobin 1.8 H POC ABG HHb (Measured) 0.6 ABG Methemoglobin 0.8 Uriel Test Na A-a O2 Difference 520.0 Respiratory Index 3.6 Hgb O2 Saturation 96.8 Vent Mode Mechanical Rate 14 FiO2 100.0 Tidal Volume 450 PEEP 14 Sodium Potassium Chloride Carbon Dioxide Anion Gap BUN Creatinine Est GFR ( Amer) Est GFR (Non-Af Amer) POC Glucose (mg/dL) 271 H Random Glucose Calcium Phosphorus Magnesium % Saturation Ferritin Total Bilirubin AST ALT Alkaline Phosphatase Total Protein Albumin Globulin Albumin/Globulin Ratio Assessment & Plan (1) ARDS (adult respiratory distress syndrome) Status: Acute Attending/Attestation - Attestation I have personally seen and examined this patient.: Yes I have fully participated in the care of the patient.: Yes I have reviewed all pertinent clinical information: Yes
[2017-08-18] MEDS: Albuterol-Ipratrop 3 mg / 0.5 (3 ml) UD INH SCH ×3 (15:05→19:41)
--- NOTE | 2017-08-18 15:45 | CP.PCM.CON ---
History of Present Illness - History of Present Illness History of Present Illness: Thoracic Surgery Dr. Lopez 77 y/o M w/ PMHx of CAD w/stent, HTN, HLD, DM, ESRD, pacemaker, and DVT presented to the ED for CP and SOB. Cardiac cath was planned for 08/09/17, which was canceled due to worsening kidney function. Pt went into cardiac arrest/ asystole, had ROSC, was intubated, and transferred to ICU. Pt intubated and sedated, being treated for ARDS. History obtained from medical record. vented on FiO2 80%, PEEP 14, RR 14, tidal volume 450 and sedated. PMHx: see above, anemia Meds: reviewed in chart NKDA PSHx: abdominal hernia repair, pacemaker, cardiac stent SHx: denies tobacco, EtOH, drugs FHx: noncontributory Review of Systems - Review of Systems Systems not reviewed;Unavailable: Intubated Past Patient History - Infectious Disease Hx of Infectious Diseases: None - Past Medical History & Family History Past Medical History?: Yes - Past Social History Smoking Status: Never Smoked Alcohol: None Drugs: Denies Home Situation {Lives}: With Family - CARDIAC Hx Congestive Heart Failure: Yes Hx Hypercholesterolemia: Yes Hx Hypertension: Yes - PULMONARY Hx Asthma: Yes - RENAL Hx Chronic Kidney Disease: Yes (REANAL INSUFFICIENCY) Hx Kidney Stones: Yes - ENDOCRINE/METABOLIC Hx Diabetes Mellitus Type 2: Yes - MUSCULOSKELETAL/RHEUMATOLOGICAL Hx Arthritis: Yes - GENITOURINARY/GYNECOLOGICAL Hx Genitourinary Disorders: Yes Hx Prostate Problems: Yes (ELEVATED PSA) - PSYCHIATRIC Hx Anxiety: Yes Hx Depression: Yes Hx Substance Use: No - SURGICAL HISTORY Hx Surgeries: Yes Other/Comment: pacemaker on - ANESTHESIA Hx Anesthesia: Yes Hx Anesthesia Reactions: No Hx Malignant Hyperthermia: No Meds Allergies/Adverse Reactions: Allergies Allergy/AdvReac Type Severity Reaction Status Date / Time No Known Allergies Allergy Verified 08/06/17 13:20 - Medications Medications: Current Medications Acetaminophen (Tylenol 650mg/20.3ml Solution Ud) 650 mg PO Q6 PRN PRN Reason: Temperature Last Admin: 08/16/17 12:31 Dose: 650 mg Albumin Human (Albumin Human 25% (12.5 Gm/50 Ml)) 12.5 gm IV Q2H [facility] Stop: 08/19/17 10:01 Albuterol/Ipratropium (Duoneb 3 Mg/0.5 Mg (3 Ml) Ud) 3 ml INH RQ4 [facility] Aspirin (Aspirin Chewable) 81 mg PO DAILY [facility] Last Admin: 08/18/17 10:33 Dose: 81 mg Clopidogrel Bisulfate (Plavix) 75 mg PO DAILY [facility] Last Admin: 08/18/17 10:34 Dose: 75 mg Enoxaparin Sodium (Lovenox) 30 mg SC DAILY [facility] Last Admin: 08/18/17 10:40 Dose: 30 mg Epoetin Chencho (Procrit) 10,000 unit IV MWF [facility] Last Admin: 08/17/17 18:23 Dose: Not Given Famotidine (Pepcid) 20 mg PO DAILY [facility] Last Admin: 08/18/17 10:33 Dose: 20 mg Propofol (Diprivan) 1,000 mg in 100 mls @ 2.844 mls/hr IV .Q24H PRN; Protocol; 5 MCG/KG/MIN PRN Reason: TITRATE PER MD ORDER Last Admin: 08/18/17 14:20 Dose: 60 mcg/kg/min, 34.128 mls/hr Meropenem 500 mg/ Sodium (Chloride) 100 mls @ 100 mls/hr IVPB Q12 [facility] Last Admin: 08/18/17 10:33 Dose: 100 mls/hr Piperacillin Sod/Tazobactam Sod (Zosyn 2.25 Gm Iv Premix) 2.25 gm in 50 mls @ 100 mls/hr IVPB Q6H [facility] Last Admin: 08/18/17 12:00 Dose: 100 mls/hr Insulin Aspart (Novolog) 0 unit SC Q6H [facility] PRN Reason: Protocol Last Admin: 08/18/17 11:55 Dose: 6 unit Insulin Glargine (Lantus) 10 unit SC HS [facility] Last Admin: 08/17/17 22:00 Dose: 10 u Ipratropium Hartley (Atrovent) 0.5 mg IH RQ6 PRN PRN Reason: Shortness of Breath Last Admin: 08/15/17 08:07 Dose: 0.5 mg Lactobacillus Acidophilus (Bacid Acidophilus) 1 cap PO BID [facility] Last Admin: 08/18/17 10:33 Dose: 1 cap Metoprolol Succinate (Toprol Xl) 50 mg PO DAILY [facility] Last Admin: 08/18/17 10:33 Dose: 50 mg Midazolam HCl (Versed Inj) 2 mg IVP Q4H PRN PRN Reason: Anxiety Rosuvastatin Calcium (Crestor) 10 mg PO HS [facility] Last Admin: 08/17/17 22:00 Dose: 10 mg Senna/Docusate Sodium (Senokot S 50 Mg-8.6 Mg) 1 tab PO BID [facility] Last Admin: 08/18/17 10:33 Dose: 1 tab Physical Exam - Constitutional Appears: Non-toxic, No Acute Distress - Head Exam Head Exam: NORMAL INSPECTION - Eye Exam Eye Exam: Normal appearance - ENT Exam ENT Exam: Mucous Membranes Moist Additional comments: ETT and OGT in place - Neck Exam Neck exam: Positive for: Normal Inspection - Respiratory Exam Respiratory Exam: Decreased Breath Sounds, NORMAL BREATHING PATTERN (mechanical ventilation). absent: Accessory Muscle Use, Respiratory Distress - Cardiovascular Exam Cardiovascular Exam: REGULAR RHYTHM. absent: Bradycardia, Tachycardia - GI/Abdominal Exam GI & Abdominal Exam: Soft. absent: Distended, Guarding, Rebound, Tenderness - Extremities Exam Extremities exam: Positive for: normal inspection. Negative for: pedal edema - Neurological Exam Neurological exam: Alert, Oriented x3 - Psychiatric Exam Psychiatric exam: Normal Affect, Normal Mood - Skin Skin Exam: Dry, Intact, Normal Color, Warm Results - Vital Signs Recent Vital Signs: Last Vital Signs Temp 99.5 F 08/18/17 12:00 Pulse 87 08/18/17 14:07 Resp 25 H 08/18/17 14:07 BP 142/54 L 08/18/17 14:07 Pulse Ox 99 08/18/17 14:07 - Labs Result Diagrams: 08/18/17 06:16 08/18/17 06:16 Labs: Laboratory Results - last 24 hr 08/16/17 08/17/17 08/17/17 05:52 16:33 16:33 WBC RBC Hgb Hct MCV MCH MCHC RDW Plt Count MPV Neut % (Auto) Lymph % (Auto) Cochran % (Auto) Eos % (Auto) Baso % (Auto) Neut # Lymph # Cochran # Eos # Baso # Puncture Site Rb pCO2 41 pO2 49 L HCO3 26.1 ABG pH 7.42 ABG Total CO2 27.9 ABG O2 Saturation 87.4 L ABG Base Excess 1.9 ABG Hemoglobin ABG Carboxyhemoglobin POC ABG HHb (Measured) ABG Methemoglobin Uriel Test Na A-a O2 Difference 399.0 Respiratory Index 8.1 Hgb O2 Saturation Vent Mode Prvc Mechanical Rate 10 FiO2 70.0 Tidal Volume 500 PEEP 8 Sodium Potassium Chloride Carbon Dioxide Anion Gap BUN Creatinine Est GFR ( Amer) Est GFR (Non-Af Amer) POC Glucose (mg/dL) Random Glucose Calcium Phosphorus Magnesium % Saturation 14 L Ferritin 682.0 Total Bilirubin AST ALT Alkaline Phosphatase Total Protein Albumin Globulin Albumin/Globulin Ratio 08/17/17 08/18/17 08/18/17 17:37 00:23 05:16 WBC RBC Hgb Hct MCV MCH MCHC RDW Plt Count MPV Neut % (Auto) Lymph % (Auto) Cochran % (Auto) Eos % (Auto) Baso % (Auto) Neut # Lymph # Cochran # Eos # Baso # Puncture Site Rr pCO2 47 H pO2 80 HCO3 26.1 ABG pH 7.37 ABG Total CO2 28.6 H ABG O2 Saturation 97.4 ABG Base Excess 1.5 ABG Hemoglobin 9.6 L ABG Carboxyhemoglobin 2.2 H POC ABG HHb (Measured) 2.5 ABG Methemoglobin 1.2 Uriel Test Pos A-a O2 Difference 574.0 Respiratory Index 7.2 Hgb O2 Saturation 94.2 L Vent Mode Prvc Mechanical Rate 10 FiO2 100.0 Tidal Volume 500 PEEP 8 Sodium Potassium Chloride Carbon Dioxide Anion Gap BUN Creatinine Est GFR ( Amer) Est GFR (Non-Af Amer) POC Glucose (mg/dL) 211 H 260 H Random Glucose Calcium Phosphorus Magnesium % Saturation Ferritin Total Bilirubin AST ALT Alkaline Phosphatase Total Protein Albumin Globulin Albumin/Globulin Ratio 08/18/17 08/18/17 08/18/17 05:45 06:16 06:16 WBC 14.3 H RBC 3.88 L Hgb 9.0 L Hct 28.8 L MCV 74.1 L MCH 23.1 L MCHC 31.1 L RDW 22.5 H Plt Count 328 MPV 9.3 Neut % (Auto) 76.9 H Lymph % (Auto) 10.7 L Cochran % (Auto) 6.9 Eos % (Auto) 5.0 H Baso % (Auto) 0.5 Neut # 11.0 H Lymph # 1.5 Cochran # 1.0 H Eos # 0.7 Baso # 0.1 Puncture Site pCO2 pO2 HCO3 ABG pH ABG Total CO2 ABG O2 Saturation ABG Base Excess ABG Hemoglobin ABG Carboxyhemoglobin POC ABG HHb (Measured) ABG Methemoglobin Uriel Test A-a O2 Difference Respiratory Index Hgb O2 Saturation Vent Mode Mechanical Rate FiO2 Tidal Volume PEEP Sodium 138 Potassium 3.8 Chloride 99 Carbon Dioxide 26 Anion Gap 17 BUN 62 H Creatinine 2.7 H Est GFR ( Amer) 28 Est GFR (Non-Af Amer) 23 POC Glucose (mg/dL) 263 H Random Glucose 211 H Calcium 7.9 L Phosphorus 5.7 H Magnesium 2.5 H % Saturation Ferritin Total Bilirubin 0.5 AST 92 H ALT 71 Alkaline Phosphatase 116 Total Protein 6.2 L Albumin 3.0 L Globulin 3.2 Albumin/Globulin Ratio 0.9 L 08/18/17 08/18/17 11:39 12:05 WBC RBC Hgb Hct MCV MCH MCHC RDW Plt Count MPV Neut % (Auto) Lymph % (Auto) Cochran % (Auto) Eos % (Auto) Baso % (Auto) Neut # Lymph # Cochran # Eos # Baso # Puncture Site L/b pCO2 38 pO2 146 H HCO3 24.6 ABG pH 7.41 ABG Total CO2 25.3 ABG O2 Saturation 99.4 H ABG Base Excess -0.4 ABG Hemoglobin 10.2 L ABG Carboxyhemoglobin 1.8 H POC ABG HHb (Measured) 0.6 ABG Methemoglobin 0.8 Uriel Test Na A-a O2 Difference 520.0 Respiratory Index 3.6 Hgb O2 Saturation 96.8 Vent Mode Mechanical Rate 14 FiO2 100.0 Tidal Volume 450 PEEP 14 Sodium Potassium Chloride Carbon Dioxide Anion Gap BUN Creatinine Est GFR ( Amer) Est GFR (Non-Af Amer) POC Glucose (mg/dL) 271 H Random Glucose Calcium Phosphorus Magnesium % Saturation Ferritin Total Bilirubin AST ALT Alkaline Phosphatase Total Protein Albumin Globulin Albumin/Globulin Ratio - Imaging and Cardiology CT scan - chest Status: Image reviewed by me, Report reviewed by me Assessment & Plan - Assessment and Plan (Free Text) Assessment: 77 y/o M w/ ARDS and pleural effusions 2/2 heart failure - f/u repeat chest CT - if effusions worsening, recommend pigtail catheter placement - continue medical management per Critical care Pt discussed w/ Dr. Jessica Lanier DO PGY2
--- NOTE | 2017-08-18 17:23 | CT ---
CT chest without IV contrast Indication: Assess effusions Technique: Contiguous axial images were obtained through the chest without intravenous contrast enhancement. Sagittal and coronal reconstructions were generated and reviewed. This CT exam was performed using 1 or more of the falling dose reduction techniques: Automated exposure control, adjustment of the MAA and/or kV according to patient size, and/or use of iterative reconstruction technique. Radiation dose (DLP): 783.81 MGy-cm. Comparison: Chest x-ray performed 08/18/17 Findings: Right IJ approach central venous catheter extends the SVC. Endotracheal tube terminates above the noris. Nasogastric tube extends expected location of the stomach. Visualized portions of the inferior thyroid gland appear unremarkable. The unenhanced mediastinal and hilar vascular structures appear grossly unremarkable. Cardiomegaly. Small pericardial effusion. Coronary artery calcifications. Single lead left-sided pacemaker. Mediastinal and prevascular adenopathy measuring up to 14 mm in short axis. Pulmonary venous congestion. Moderate bilateral pleural effusions and associated compressive consolidations. No pneumothorax. Limited visualization of the noncontrast upper abdomen reveals diverticulosis without CT evidence of acute diverticulitis. 2.2 cm probable splenule. Biapical adrenal hyperplasia. Bilateral renal atrophy. Perinephric stranding. Numerous low-density renal lesions. 16 mm hyperdense exophytic left upper pole renal lesion, possibly hyperdense or hemorrhagic cyst. Suggest further evaluation with renal ultrasound or CT if indicated. Osseous demineralization. Degenerative changes. Bilateral gynecomastia. Impression: Right IJ approach central venous catheter extends the SVC. Endotracheal tube terminates above the noris. Nasogastric tube extends expected location of the stomach. Cardiomegaly. Small pericardial effusion. Coronary artery calcifications. Single lead left-sided pacemaker. Mediastinal and prevascular adenopathy measuring up to 14 mm in short axis. Pulmonary venous congestion. Moderate bilateral pleural effusions and associated compressive consolidations. Limited visualization of the noncontrast upper abdomen: Diverticulosis without CT evidence of acute diverticulitis. Biapical adrenal hyperplasia. Partially imaged kidneys reveal bilateral renal atrophy. Perinephric stranding. Numerous low-density renal lesions. 16 mm hyperdense exophytic left upper pole renal lesion, possibly hyperdense or hemorrhagic cyst. Suggest further evaluation with renal ultrasound or CT if indicated.
[2017-08-18] MEDS: Albumin Human 25% (12.5 gm/50 ml) IV SCH ×5 (17:56→21:30)
--- NOTE | 2017-08-18 19:04 | CP.PCM.PN ---
Subjective - Date & Time of Evaluation Date of Evaluation: 08/18/17 Time of Evaluation: 03:00 - Subjective Subjective: dictated Objective - Vital Signs/Intake and Output Vital Signs (last 24 hours): Temp Pulse Resp BP Pulse Ox 99.5 F 83 24 133/51 L 99 08/18/17 12:00 08/18/17 15:07 08/18/17 15:07 08/18/17 15:07 08/18/17 15:07 Intake and Output: 08/18/17 08/19/17 18:59 06:59 Intake Total 927.0 100 Output Total 239 Balance 688.0 100 - Medications Medications: Current Medications Acetaminophen (Tylenol 650mg/20.3ml Solution Ud) 650 mg PO Q6 PRN PRN Reason: Temperature Last Admin: 08/16/17 12:31 Dose: 650 mg Albumin Human (Albumin Human 25% (12.5 Gm/50 Ml)) 12.5 gm IV Q2H [facility] Stop: 08/19/17 10:01 Albumin Human (Albumin Human 25% (12.5 Gm/50 Ml)) 12.5 gm IV Q2H [facility] Stop: 08/18/17 21:31 Last Admin: 08/18/17 17:56 Dose: 12.5 gm Albuterol/Ipratropium (Duoneb 3 Mg/0.5 Mg (3 Ml) Ud) 3 ml INH RQ4 [facility] Last Admin: 08/18/17 16:41 Dose: 3 ml Aspirin (Aspirin Chewable) 81 mg PO DAILY [facility] Last Admin: 08/18/17 10:33 Dose: 81 mg Clopidogrel Bisulfate (Plavix) 75 mg PO DAILY [facility] Last Admin: 08/18/17 10:34 Dose: 75 mg Enoxaparin Sodium (Lovenox) 30 mg SC DAILY [facility] Last Admin: 08/18/17 10:40 Dose: 30 mg Epoetin Chencho (Procrit) 10,000 unit IV MWF [facility] Last Admin: 08/17/17 18:23 Dose: Not Given Famotidine (Pepcid) 20 mg PO DAILY [facility] Last Admin: 08/18/17 10:33 Dose: 20 mg Propofol (Diprivan) 1,000 mg in 100 mls @ 2.844 mls/hr IV .Q24H PRN; Protocol; 5 MCG/KG/MIN PRN Reason: TITRATE PER MD ORDER Last Admin: 08/18/17 19:01 Dose: 60 mcg/kg/min, 34.128 mls/hr Meropenem 500 mg/ Sodium (Chloride) 100 mls @ 100 mls/hr IVPB Q12 [facility] Last Admin: 08/18/17 10:33 Dose: 100 mls/hr Piperacillin Sod/Tazobactam Sod (Zosyn 2.25 Gm Iv Premix) 2.25 gm in 50 mls @ 100 mls/hr IVPB Q6H [facility] Last Admin: 08/18/17 17:57 Dose: 100 mls/hr Insulin Aspart (Novolog) 0 unit SC Q6H [facility] PRN Reason: Protocol Last Admin: 08/18/17 17:59 Dose: 4 unit Insulin Glargine (Lantus) 10 unit SC [facility] Last Admin: 08/17/17 22:00 Dose: 10 u Ipratropium [place] (Atrovent) 0.5 mg IH RQ6 PRN PRN Reason: Shortness of Breath Last Admin: 08/15/17 08:07 Dose: 0.5 mg Lactobacillus Acidophilus (Bacid Acidophilus) 1 cap PO BID [facility] Last Admin: 08/18/17 17:58 Dose: 1 cap Metoprolol Succinate (Toprol Xl) 50 mg PO DAILY [facility] Last Admin: 08/18/17 10:33 Dose: 50 mg Midazolam HCl (Versed Inj) 2 mg IVP Q4H PRN PRN Reason: Anxiety Rosuvastatin Calcium (Crestor) 10 mg PO [facility] Last Admin: 08/17/17 22:00 Dose: 10 mg Senna/Docusate Sodium (Senokot S 50 Mg-8.6 Mg) 1 tab PO BID [facility] Last Admin: 08/18/17 17:58 Dose: 1 tab - Labs Labs: 08/18/17 06:16 08/18/17 06:16 PT 13.0 SECONDS (9.7-12.2) H 08/09/17 23:23 INR 1.2 08/09/17 23:23 APTT 55 SECONDS (21-34) H D 08/17/17 06:12
--- NOTE | 2017-08-18 20:38 | PN ---
DATE: SUBJECTIVE: The patient remains intubated, and he is on 80% oxygen at this time. He was going to go for a CAT scan. PHYSICAL EXAMINATION VITAL SIGNS: When I saw him, T-max was 99.5, heart rate of 78, blood pressure 120/48, respirations are 31. He remains intubated and on a ventilator. CARDIOPULMONARY: S1 and S2, regular. He is sedated. LUNGS: Clear. ABDOMEN: Distended. Bowel sounds are present. EXTREMITIES: Remain with edema, and he did have dialysis before because he has renal failure. I am not sure if it was today, but he has been getting dialysis. LABORATORY DATA: White count is 14.3, hemoglobin 9, hematocrit 28, platelet count is 328, so white count is still high, but remains stable. Chemistry shows sodium 138, potassium 3.8, chloride is 99, CO2 is 26, BUN is 62 and creatinine is 2.7, is slightly better. Chest CT shows CVC, again catheter extending to SVC, and EGD abdomen is above the groin. NG tube extends expected to the stomach, cardiomegaly, small pericardial effusion, single-lead left-sided pacemaker, mediastinal and prevascular adenopathy measuring up to 14 mm in short axis. ASSESSMENT AND PLAN: Pulmonary vascular congestion, moderate bilateral pleural effusion and associated compressive atelectasis, limited visual noncontrast upper abdomen, diverticulosis without evidence of a good diverticulitis. So, at this time, he remains with acute respiratory failure. He has status post cardiopulmonary and he has Streptococcus pneumonia in the urine. He remains on the ventilator and he remains acutely ill. We will follow. Allan Lawrence MD
[2017-08-18] MEDS: (Lantus) Insulin Glargine, Recombinant SC SCH (22:36)
[2017-08-19] MEDS: Piperacill/Tazo 2.25gm in Dex 2.25 GM/50 ML BAG IVPB SCH ×2 (05:16→10:45)
[2017-08-19] MEDS: (Novolog) Insulin Aspart, Recombinant 100 u/ml 10 ml vial SC SCH ×2 (05:24→18:26)
[2017-08-19] MEDS: Propofol 10 mg/ml 1,000 MG/100 ML VIAL IV PRN ×2 (05:46→12:45)
[2017-08-19] MEDS: Albumin Human 25% (12.5 gm/50 ml) IV SCH ×3 (06:00→10:44)
[2017-08-19 06:09] LABS: ABG ALLEN TEST POS; ABG MECHANICAL RATE 14; ARTERIAL BLOOD GAS MODE PRVC; ARTERIAL BLOOD HGB O2 SAT 96.7 % (95.0-98.0); ATERIAL BLOOD GAS PEEP 14; CARBOXYHEMOGLOBIN 1.9 % (0.5-1.5); DRAW SITE LR; HHB 0.3 % (0.0-5.0); METHEMOGLOBIN 1.1 % (0.0-3.0)
[2017-08-19 06:33] LABS: BASO # 0.1 K/uL (0.0-0.2); BASO % 0.6 % (0.0-2.0); EOS # 0.5 K/uL (0.0-0.7); EOS % 3.2 % (0.0-4.0); LYMPH % 6.4 % (20.0-40.0); MEAN CELL VOLUME 73.8 fL (80.0-94.0); MEAN CORPUSCULAR HEMOGLOBIN 22.8 pg (27.0-31.0); MEAN PLATELET VOLUME 9.4 fL (7.2-11.7); MONO % 6.2 % (0.0-10.0); PLATELET COUNT 324 K/uL (130-400); RED CELL DISTRIBUTION WIDTH 22.1 % (11.5-14.5); WHITE BLOOD COUNT 15.5 K/uL (4.8-10.8)
[2017-08-19 06:50] LABS: ALB/GLOB RATIO 1.1 (1.0-2.1); BILIRUBIN,TOTAL 0.7 mg/dL (0.2-1.3); CALCIUM 8.4 mg/dl (8.6-10.4); MAGNESIUM 2.6 mg/dL (1.6-2.3); PHOSPHOROUS 6.5 mg/dL (2.5-4.5); POTASSIUM 4.3 mmol/L (3.6-5.2); TOTAL PROTEIN 6.3 g/dL (6.3-8.3)
[2017-08-19] MEDS: Albuterol-Ipratrop 3 mg / 0.5 (3 ml) UD INH SCH ×4 (07:50→21:00)
--- NOTE | 2017-08-19 08:10 | RAD ---
Chest x-ray single frontal view History: Intubated. Comparison: 08/18/2017 Findings: Lines and tubes are in stable position. Left-sided pacemaker. Multiple overlying external wires and tubing. Moderate to severe venous congestion. Confluent airspace consolidative changes throughout the right lung most prominent at the right lung base. Small bilateral pleural effusions. Mild cardiomegaly. Left-sided pacemaker. Degenerative changes in the spine and shoulders. Impression: No significant interval change.
[2017-08-19 08:15] LABS: EOSINOPHIL 3 % (0-4); NEUTROPHIL 89 % (50-75); TOTAL CELLS COUNTED 100
--- NOTE | 2017-08-19 08:48 | CP.CCUPN ---
<Anton Moore - Last Filed: 08/19/17 16:47> CCU Subjective - Physician Review Subjective (Free Text): Patient seen and examined at bedside. Patient did not receive a tracheostomy because Anesthesia declined due to high risk since patient was on a high PEEP ( 14). Patient was given a right sided PIG tail by Dr. Streeter to drain pleural effusion. Remains intubated, ROS unobtainable. CCU Objective - Vital Signs / Intake & Output Vital Signs (Last 4 hours): Vital Signs Temp Pulse Resp BP Pulse Ox 08/19/17 07:47 99.9 F H 08/19/17 06:39 84 21 122/47 L 08/19/17 05:15 78 22 103/40 L 100 Intake and Output (Last 8hrs): Intake & Output 08/18/17 08/19/17 08/19/17 22:59 06:59 14:59 Intake Total 1016.8 366.8 Output Total 154 100 Balance 862.8 266.8 Weight 206 lb 5.643 oz Intake: IV 300 100 Intake, IV Amount 396.8 186.8 Right Distal Port 175 50 Right Proximal Port 221.8 136.8 Tube Feeding 320 80 Output: Urine 154 100 Urethral (Jaquez) 154 100 Other: # Bowel Movements 0 - Physical Exam Head: Positive for: Atraumatic, Normocephalic Pupils: Positive for: Sluggish Conjunctiva: Positive for: Normal Pharnyx: Positive for: Normal Respiratory/Chest: Positive for: Decreased Breath Sounds, Other (on vent) Cardiovascular: Positive for: Regular Rate and Rhythm, Normal S1, S2 Abdomen: Positive for: Distention, Normal Bowel Sounds, Other (obese habitus) Skin: Positive for: Warm, Dry Psychiatric: Positive for: Other (sedated) - Medications Active Medications: Active Medications Generic Name Dose Route Start Last Admin Trade Name Freq PRN Reason Stop Dose Admin Acetaminophen 650 mg 08/11/17 17:40 08/16/17 12:31 Tylenol 650mg/20.3ml Solution Ud PO 650 mg Q6 PRN Administration Temperature Albumin Human 12.5 gm 08/19/17 06:00 08/19/17 06:00 Albumin Human 25% (12.5 Gm/50 Ml) IV 08/19/17 10:01 12.5 gm Q2H LUIS FERNANDO Administration Albuterol/Ipratropium 3 ml 08/18/17 12:00 08/19/17 07:50 Duoneb 3 Mg/0.5 Mg (3 Ml) Ud INH 3 ml RQ4 LUIS FERNANDO Administration Aspirin 81 mg 08/14/17 11:15 08/18/17 10:33 Aspirin Chewable PO 81 mg DAILY LUIS FERNANDO Administration Clopidogrel Bisulfate 75 mg 08/12/17 11:00 08/18/17 10:34 Plavix PO 75 mg DAILY LUIS FERNANDO Administration Enoxaparin Sodium 30 mg 08/17/17 10:00 08/18/17 10:40 Lovenox SC 30 mg DAILY LUIS FERNANDO Administration Epoetin Chencho 10,000 unit 08/17/17 14:00 08/17/17 18:23 Procrit IV Not Given [facility] Famotidine 20 mg 08/09/17 10:00 08/18/17 10:33 Pepcid PO 20 mg DAILY LUIS FERNANDO Administration Propofol 1,000 mg in 100 mls @ 2.844 mls/hr 08/12/17 21:00 08/19/17 05:46 Diprivan IV 60 mcg/kg/min .Q24H PRN 34.128 mls/hr TITRATE PER MD ORDER Administration Protocol 5 MCG/KG/MIN Meropenem 500 mg/ Sodium 100 mls @ 100 mls/hr 08/14/17 22:00 08/18/17 21:30 Chloride IVPB 100 mls/hr Q12 LUIS FERNANDO Administration Piperacillin Sod/Tazobactam Sod 2.25 gm in 50 mls @ 100 mls/hr 08/18/17 11:15 08/19/17 05:16 Zosyn 2.25 Gm Iv Premix IVPB 100 mls/hr Q6H LUIS FERNANDO Administration Insulin Aspart 0 unit 08/11/17 00:00 08/19/17 05:24 Novolog SC 6 unit Q6H LUIS FERNANDO Administration Protocol Insulin Glargine 10 unit 08/14/17 22:00 08/18/17 22:36 Lantus SC 10 u HS LUIS FERNANDO Administration Ipratropium Posen 0.5 mg 08/07/17 08:47 08/15/17 08:07 Atrovent IH 0.5 mg RQ6 PRN Administration Shortness of Breath Lactobacillus Acidophilus 1 cap 08/13/17 18:00 09/21/17 17:58 Bacid Acidophilus PO 1 cap BID LUIS FERNANDO Administration Metoprolol Succinate 50 mg 08/07/17 13:54 08/18/17 10:33 Toprol Xl PO 50 mg DAILY LUIS FERNANDO Administration Midazolam HCl 2 mg 08/12/17 14:26 Versed Inj IVP Q4H PRN Anxiety Rosuvastatin Calcium 10 mg 08/06/17 22:00 08/18/17 22:36 Crestor PO 10 mg HS LUIS FERNANDO Administration Senna/Docusate Sodium 1 tab 08/13/17 11:30 08/18/17 17:58 Senokot S 50 Mg-8.6 Mg PO 1 tab BID LUIS FERNANDO Administration - Patient Studies Lab Studies: Lab Studies 08/19/17 08/19/17 08/19/17 Range/Units 06:26 06:26 05:50 WBC 15.5 H (4.8-10.8) K/uL RBC 3.66 L (4.40-5.90) Mil/uL Hgb 8.4 L (12.0-18.0) g/dL Hct 27.0 L (35.0-51.0) % MCV 73.8 L (80.0-94.0) fL MCH 22.8 L (27.0-31.0) pg MCHC 31.0 L (33.0-37.0) g/dL RDW 22.1 H (11.5-14.5) % Plt Count 324 (130-400) K/uL MPV 9.4 (7.2-11.7) fL Neut % (Auto) 83.6 H (50.0-75.0) % Lymph % (Auto) 6.4 L (20.0-40.0) % Clarke % (Auto) 6.2 (0.0-10.0) % Eos % (Auto) 3.2 (0.0-4.0) % Baso % (Auto) 0.6 (0.0-2.0) % Neut # 12.9 H (1.8-7.0) K/uL Lymph # 1.0 (1.0-4.3) K/uL Clarke # 1.0 H (0.0-0.8) K/uL Eos # 0.5 (0.0-0.7) K/uL Baso # 0.1 (0.0-0.2) K/uL Neutrophils % (Manual) 89 H (50-75) % Lymphocytes % (Manual) 3 L (20-40) % Monocytes % (Manual) 5 (0-10) % Eosinophils % (Manual) 3 (0-4) % Platelet Estimate Normal (NORMAL) Hypochromasia (manual) Slight Basophilic Stippling Slight Anisocytosis (manual) Moderate Puncture Site Lr pCO2 39 (35-45) mm/Hg pO2 177 H (80-100) mm/Hg HCO3 25.6 (21-28) mmol/L ABG pH 7.42 (7.35-7.45) ABG Total CO2 26.5 (22-28) mmol/L ABG O2 Saturation 99.7 H (95-98) % ABG Base Excess 0.8 (-2.0-3.0) mmol/L ABG Hemoglobin 8.3 L (11.7-17.4) g/dL ABG Carboxyhemoglobin 1.9 H (0.5-1.5) % POC ABG HHb (Measured) 0.3 (0.0-5.0) % ABG Methemoglobin 1.1 (0.0-3.0) % Uriel Test Pos A-a O2 Difference 345.0 mm/Hg Respiratory Index 1.9 Hgb O2 Saturation 96.7 (95.0-98.0) % Vent Mode Prvc Mechanical Rate 14 FiO2 80.0 % Tidal Volume 450 PEEP 14 Sodium 135 (132-148) mmol/L Potassium 4.3 (3.6-5.2) mmol/L Chloride 94 L (98-107) mmol/L Carbon Dioxide 26 (22-30) mmol/L Anion Gap 19 (10-20) BUN 63 H (9-20) mg/dL Creatinine 2.9 H (0.8-1.5) MG/DL Est GFR ( Amer) 26 Est GFR (Non-Af Amer) 21 POC Glucose (mg/dL) (65-110) mg/dL Random Glucose 229 H (75-110) mg/dL Calcium 8.4 L (8.6-10.4) mg/dl Phosphorus 6.5 H (2.5-4.5) mg/dL Magnesium 2.6 H (1.6-2.3) mg/dL Total Bilirubin 0.7 (0.2-1.3) mg/dL AST 82 H (17-59) U/L ALT 74 H (21-72) U/L Alkaline Phosphatase 137 H (38-126) U/L Total Protein 6.3 (6.3-8.3) g/dL Albumin 3.3 L (3.5-5.0) g/dL Globulin 3.0 (2.2-3.9) gm/dL Albumin/Globulin Ratio 1.1 (1.0-2.1) 08/19/17 08/18/17 08/18/17 Range/Units 05:11 23:39 17:38 WBC (4.8-10.8) K/uL RBC (4.40-5.90) Mil/uL Hgb (12.0-18.0) g/dL Hct (35.0-51.0) % MCV (80.0-94.0) fL MCH (27.0-31.0) pg MCHC (33.0-37.0) g/dL RDW (11.5-14.5) % Plt Count (130-400) K/uL MPV (7.2-11.7) fL Neut % (Auto) (50.0-75.0) % Lymph % (Auto) (20.0-40.0) % Clarke % (Auto) (0.0-10.0) % Eos % (Auto) (0.0-4.0) % Baso % (Auto) (0.0-2.0) % Neut # (1.8-7.0) K/uL Lymph # (1.0-4.3) K/uL Clarke # (0.0-0.8) K/uL Eos # (0.0-0.7) K/uL Baso # (0.0-0.2) K/uL Neutrophils % (Manual) (50-75) % Lymphocytes % (Manual) (20-40) % Monocytes % (Manual) (0-10) % Eosinophils % (Manual) (0-4) % Platelet Estimate (NORMAL) Hypochromasia (manual) Basophilic Stippling Anisocytosis (manual) Puncture Site pCO2 (35-45) mm/Hg pO2 (80-100) mm/Hg HCO3 (21-28) mmol/L ABG pH (7.35-7.45) ABG Total CO2 (22-28) mmol/L ABG O2 Saturation (95-98) % ABG Base Excess (-2.0-3.0) mmol/L ABG Hemoglobin (11.7-17.4) g/dL ABG Carboxyhemoglobin (0.5-1.5) % POC ABG HHb (Measured) (0.0-5.0) % ABG Methemoglobin (0.0-3.0) % Uriel Test A-a O2 Difference mm/Hg Respiratory Index Hgb O2 Saturation (95.0-98.0) % Vent Mode Mechanical Rate FiO2 % Tidal Volume PEEP Sodium (132-148) mmol/L Potassium (3.6-5.2) mmol/L Chloride (98-107) mmol/L Carbon Dioxide (22-30) mmol/L Anion Gap (10-20) BUN (9-20) mg/dL Creatinine (0.8-1.5) MG/DL Est GFR ( Amer) Est GFR (Non-Af Amer) POC Glucose (mg/dL) 278 H 210 H 208 H (65-110) mg/dL Random Glucose (75-110) mg/dL Calcium (8.6-10.4) mg/dl Phosphorus (2.5-4.5) mg/dL Magnesium (1.6-2.3) mg/dL Total Bilirubin (0.2-1.3) mg/dL AST (17-59) U/L ALT (21-72) U/L Alkaline Phosphatase (38-126) U/L Total Protein (6.3-8.3) g/dL Albumin (3.5-5.0) g/dL Globulin (2.2-3.9) gm/dL Albumin/Globulin Ratio (1.0-2.1) 08/18/17 08/18/17 Range/Units 12:05 11:39 WBC (4.8-10.8) K/uL RBC (4.40-5.90) Mil/uL Hgb (12.0-18.0) g/dL Hct (35.0-51.0) % MCV (80.0-94.0) fL MCH (27.0-31.0) pg MCHC (33.0-37.0) g/dL RDW (11.5-14.5) % Plt Count (130-400) K/uL MPV (7.2-11.7) fL Neut % (Auto) (50.0-75.0) % Lymph % (Auto) (20.0-40.0) % Clarke % (Auto) (0.0-10.0) % Eos % (Auto) (0.0-4.0) % Baso % (Auto) (0.0-2.0) % Neut # (1.8-7.0) K/uL Lymph # (1.0-4.3) K/uL Clarke # (0.0-0.8) K/uL Eos # (0.0-0.7) K/uL Baso # (0.0-0.2) K/uL Neutrophils % (Manual) (50-75) % Lymphocytes % (Manual) (20-40) % Monocytes % (Manual) (0-10) % Eosinophils % (Manual) (0-4) % Platelet Estimate (NORMAL) Hypochromasia (manual) Basophilic Stippling Anisocytosis (manual) Puncture Site L/b pCO2 38 (35-45) mm/Hg pO2 146 H (80-100) mm/Hg HCO3 24.6 (21-28) mmol/L ABG pH 7.41 (7.35-7.45) ABG Total CO2 25.3 (22-28) mmol/L ABG O2 Saturation 99.4 H (95-98) % ABG Base Excess -0.4 (-2.0-3.0) mmol/L ABG Hemoglobin 10.2 L (11.7-17.4) g/dL ABG Carboxyhemoglobin 1.8 H (0.5-1.5) % POC ABG HHb (Measured) 0.6 (0.0-5.0) % ABG Methemoglobin 0.8 (0.0-3.0) % Uriel Test Na A-a O2 Difference 520.0 mm/Hg Respiratory Index 3.6 Hgb O2 Saturation 96.8 (95.0-98.0) % Vent Mode Mechanical Rate 14 FiO2 100.0 % Tidal Volume 450 PEEP 14 Sodium (132-148) mmol/L Potassium (3.6-5.2) mmol/L Chloride (98-107) mmol/L Carbon Dioxide (22-30) mmol/L Anion Gap (10-20) BUN (9-20) mg/dL Creatinine (0.8-1.5) MG/DL Est GFR ( Amer) Est GFR (Non-Af Amer) POC Glucose (mg/dL) 271 H (65-110) mg/dL Random Glucose (75-110) mg/dL Calcium (8.6-10.4) mg/dl Phosphorus (2.5-4.5) mg/dL Magnesium (1.6-2.3) mg/dL Total Bilirubin (0.2-1.3) mg/dL AST (17-59) U/L ALT (21-72) U/L Alkaline Phosphatase (38-126) U/L Total Protein (6.3-8.3) g/dL Albumin (3.5-5.0) g/dL Globulin (2.2-3.9) gm/dL Albumin/Globulin Ratio (1.0-2.1) Laboratory Results - last 24 hr 08/18/17 08/18/17 08/18/17 11:39 12:05 17:38 WBC RBC Hgb Hct MCV MCH MCHC RDW Plt Count MPV Neut % (Auto) Lymph % (Auto) Clarke % (Auto) Eos % (Auto) Baso % (Auto) Neut # Lymph # Clarke # Eos # Baso # Neutrophils % (Manual) Lymphocytes % (Manual) Monocytes % (Manual) Eosinophils % (Manual) Platelet Estimate Hypochromasia (manual) Basophilic Stippling Anisocytosis (manual) Puncture Site L/b pCO2 38 pO2 146 H HCO3 24.6 ABG pH 7.41 ABG Total CO2 25.3 ABG O2 Saturation 99.4 H ABG Base Excess -0.4 ABG Hemoglobin 10.2 L ABG Carboxyhemoglobin 1.8 H POC ABG HHb (Measured) 0.6 ABG Methemoglobin 0.8 Uriel Test Na A-a O2 Difference 520.0 Respiratory Index 3.6 Hgb O2 Saturation 96.8 Vent Mode Mechanical Rate 14 FiO2 100.0 Tidal Volume 450 PEEP 14 Sodium Potassium Chloride Carbon Dioxide Anion Gap BUN Creatinine Est GFR ( Amer) Est GFR (Non-Af Amer) POC Glucose (mg/dL) 271 H 208 H Random Glucose Calcium Phosphorus Magnesium Total Bilirubin AST ALT Alkaline Phosphatase Total Protein Albumin Globulin Albumin/Globulin Ratio 08/18/17 08/19/17 08/19/17 23:39 05:11 05:50 WBC RBC Hgb Hct MCV MCH MCHC RDW Plt Count MPV Neut % (Auto) Lymph % (Auto) Clarke % (Auto) Eos % (Auto) Baso % (Auto) Neut # Lymph # Clarke # Eos # Baso # Neutrophils % (Manual) Lymphocytes % (Manual) Monocytes % (Manual) Eosinophils % (Manual) Platelet Estimate Hypochromasia (manual) Basophilic Stippling Anisocytosis (manual) Puncture Site Lr pCO2 39 pO2 177 H HCO3 25.6 ABG pH 7.42 ABG Total CO2 26.5 ABG O2 Saturation 99.7 H ABG Base Excess 0.8 ABG Hemoglobin 8.3 L ABG Carboxyhemoglobin 1.9 H POC ABG HHb (Measured) 0.3 ABG Methemoglobin 1.1 Uriel Test Pos A-a O2 Difference 345.0 Respiratory Index 1.9 Hgb O2 Saturation 96.7 Vent Mode Prvc Mechanical Rate 14 FiO2 80.0 Tidal Volume 450 PEEP 14 Sodium Potassium Chloride Carbon Dioxide Anion Gap BUN Creatinine Est GFR ( Amer) Est GFR (Non-Af Amer) POC Glucose (mg/dL) 210 H 278 H Random Glucose Calcium Phosphorus Magnesium Total Bilirubin AST ALT Alkaline Phosphatase Total Protein Albumin Globulin Albumin/Globulin Ratio 08/19/17 08/19/17 06:26 06:26 WBC 15.5 H RBC 3.66 L Hgb 8.4 L Hct 27.0 L MCV 73.8 L MCH 22.8 L MCHC 31.0 L RDW 22.1 H Plt Count 324 MPV 9.4 Neut % (Auto) 83.6 H Lymph % (Auto) 6.4 L Clarke % (Auto) 6.2 Eos % (Auto) 3.2 Baso % (Auto) 0.6 Neut # 12.9 H Lymph # 1.0 Clarke # 1.0 H Eos # 0.5 Baso # 0.1 Neutrophils % (Manual) 89 H Lymphocytes % (Manual) 3 L Monocytes % (Manual) 5 Eosinophils % (Manual) 3 Platelet Estimate Normal Hypochromasia (manual) Slight Basophilic Stippling Slight Anisocytosis (manual) Moderate Puncture Site pCO2 pO2 HCO3 ABG pH ABG Total CO2 ABG O2 Saturation ABG Base Excess ABG Hemoglobin ABG Carboxyhemoglobin POC ABG HHb (Measured) ABG Methemoglobin Uriel Test A-a O2 Difference Respiratory Index Hgb O2 Saturation Vent Mode Mechanical Rate FiO2 Tidal Volume PEEP Sodium 135 Potassium 4.3 Chloride 94 L Carbon Dioxide 26 Anion Gap 19 BUN 63 H Creatinine 2.9 H Est GFR ( Amer) 26 Est GFR (Non-Af Amer) 21 POC Glucose (mg/dL) Random Glucose 229 H Calcium 8.4 L Phosphorus 6.5 H Magnesium 2.6 H Total Bilirubin 0.7 AST 82 H ALT 74 H Alkaline Phosphatase 137 H Total Protein 6.3 Albumin 3.3 L Globulin 3.0 Albumin/Globulin Ratio 1.1 Fingerstick Blood Sugar Results: 105 Review of Systems - Review of Systems Systems not reviewed;Unavailable: Intubated Critical Care Progress Note - Vent Settings TIDAL VOLUME:: 500 RESP RATE:: 14 FIO2:: 50 PEEP:: 5 - Nutrition Nutrition: Nutrition Category Date Time Status Heart Healthy Diet [DIET] Diets 08/09/17 Lunch Active Assessment/Plan - Assessment and Plan (Free Text) Assessment: 77 yo M admitted to ICU from floors, patient was to get CT scan and had respiratory distress, a code blue was called and patient was transferred to ICU and intubated. Currently patient with ARDS with PEEP 14, and severe sepsis from pneumonia on abx. Today (08/19): Patient's tracheostomy cancelled due to Anesthesia's concern of a high PEEP (14). Right sided pigtail placed by Dr. Streeter to drain right sided pleural effusion. Discontinued plavix due to stent being placed >1 year ago. Renal dose of vanco given. Started cefepime 1gm iv q24. Insulin regimen adjusted to correct high sugars in 200s. Neuro: Sedated with propofol drip. Pulm: acute respiratory failure in severe ARDS. CT chest shows large right pleural effusion, Right sided pigtail placed 08/19/17. Duonebs q4, atrovent q6 prn. CV: NSTEMI on aspirin, metoprolol po qd, Dobutamine 500mg IV q24h Hem: aspirin, lovenox, holding eliquis. Renal: ALIREZA, Lasix 60mg IV q12h, becoming less effective, urine output decreasing. Aggressive hemodialysis for fluid removal. Endo: DM type 2, on insulin sliding scale for coverage and levemir 10u sc q12 GI: no recent BM's, Started Senna/Colace and enema. No obstruction seen on CT abdomen. ID: severe sepsis from pneumonia, vanco 1.5 g (renal dose) once, cefepime 1gm iv q24. DVT proph - Lovenox 30mg sc qd (renal dose) GI proph - pepcid jaquez for strict I/O's during acute illness Code status - full code <Diaz Streeter - Last Filed: 08/19/17 17:12> CCU Objective - Vital Signs / Intake & Output Vital Signs (Last 4 hours): Vital Signs Temp Pulse Resp BP Pulse Ox 08/19/17 16:00 91 H 27 H 98 08/19/17 15:52 91 H 27 H 154/45 H 95 08/19/17 15:30 89 20 100 08/19/17 15:29 98.8 F 08/19/17 15:22 90 23 144/50 L 96 08/19/17 15:08 89 31 H 145/51 L 94 L 08/19/17 15:00 91 H 26 H 96 08/19/17 14:50 90 20 153/56 H 96 08/19/17 14:30 87 22 95 08/19/17 14:22 89 25 H 148/46 L 97 08/19/17 14:00 85 14 100 08/19/17 13:52 90 16 138/40 L 99 08/19/17 13:30 88 27 H 98 08/19/17 13:22 92 H 26 H 139/37 L 96 Intake and Output (Last 8hrs): Intake & Output 08/19/17 08/19/17 08/19/17 06:59 14:59 22:59 Intake Total 366.8 594.6 78 Output Total 100 31 70 Balance 266.8 563.6 8 Weight 206 lb 5.643 oz 205 lb 0.478 oz Intake: IV 100 100 50 Intake, IV Amount 186.8 494.6 28 Right Distal Port 50 130.6 14 Right Medial Port 350 Right Proximal Port 136.8 14 14 Tube Feeding 80 Output: Urine 100 30 70 Urethral (Jaquez) 100 30 70 Urine/Stool Mix 1 - Medications Active Medications: Active Medications Generic Name Dose Route Start Last Admin Trade Name Freq PRN Reason Stop Dose Admin Acetaminophen 650 mg 08/11/17 17:40 08/19/17 12:11 Tylenol 650mg/20.3ml Solution Ud PO 650 mg Q6 PRN Administration Temperature Albuterol/Ipratropium 3 ml 08/18/17 12:00 08/19/17 16:01 Duoneb 3 Mg/0.5 Mg (3 Ml) Ud INH 3 ml RQ4 LUIS FERNANDO Administration Aspirin 81 mg 08/14/17 11:15 08/19/17 10:08 Aspirin Chewable PO Not Given DAILY LUIS FERNANDO Enoxaparin Sodium 30 mg 08/17/17 10:00 08/19/17 10:08 Lovenox SC Not Given DAILY LUIS FERNANDO Epoetin Chencho 10,000 unit 08/17/17 14:00 08/17/17 18:23 Procrit IV Not Given MWF LUIS FERNANDO Famotidine 20 mg 08/09/17 10:00 08/19/17 10:08 Pepcid PO Not Given DAILY LUIS FERNANDO Propofol 1,000 mg in 100 mls @ 2.844 mls/hr 08/12/17 21:00 08/19/17 15:37 Diprivan IV 0 mcg/kg/min .Q24H PRN 0 mls/hr TITRATE PER MD ORDER Titration Protocol 5 MCG/KG/MIN Vancomycin HCl 1,500 mg/ 500 mls @ 250 mls/hr 08/19/17 18:00 Sodium Chloride IVPB 08/19/17 19:59 ONCE ONE Cefepime HCl 1 gm/ Dextrose 50 mls @ 100 mls/hr 08/19/17 12:00 08/19/17 12:48 IVPB 100 mls/hr Q24H LUIS FERNANDO Administration Dobutamine HCl/Dextrose 500 mg in 250 mls @ 7.02 mls/hr 08/19/17 11:45 12:11 Dobutamine/Dextrose 5% 500mg/250ml IV 2.5 mcg/kg/min .Q24H LUIS FERNANDO 7.02 mls/hr Protocol Administration 2.5 MCG/KG/MIN Insulin Aspart 0 unit 08/19/17 18:00 Novolog SC Q6 LUIS FERNANDO Protocol Insulin Detemir 10 unit 08/19/17 11:30 08/19/17 12:10 Levemir SC 10 unit Q12H LUIS FERNANDO Administration Ipratropium Posen 0.5 mg 08/07/17 08:47 08/15/17 08:07 Atrovent IH 0.5 mg RQ6 PRN Administration Shortness of Breath Lactobacillus Acidophilus 1 cap 08/13/17 18:00 08/19/17 10:08 Bacid Acidophilus PO Not Given BID LUIS FERNANDO Metoprolol Succinate 50 mg 08/07/17 13:54 08/19/17 10:07 Toprol Xl PO 50 mg DAILY LUIS FERNANDO Administration Midazolam HCl 2 mg 08/19/17 10:59 08/19/17 17:08 Versed Inj IVP 2 mg Q3H PRN Administration Agitation Rosuvastatin Calcium 10 mg 08/06/17 22:00 08/18/17 22:36 Crestor PO 10 mg HS LUIS FERNANDO Administration - Patient Studies Lab Studies: Microbiology Studies 08/18/17 13:17 Urine Culture - Final Urine,Catheterized No Growth (<1,000 CFU/ML) Lab Studies 08/19/17 08/19/17 08/19/17 Range/Units 11:50 11:40 06:26 WBC (4.8-10.8) K/uL RBC (4.40-5.90) Mil/uL Hgb (12.0-18.0) g/dL Hct (35.0-51.0) % MCV (80.0-94.0) fL MCH (27.0-31.0) pg MCHC (33.0-37.0) g/dL RDW (11.5-14.5) % Plt Count (130-400) K/uL MPV (7.2-11.7) fL Neut % (Auto) (50.0-75.0) % Lymph % (Auto) (20.0-40.0) % Clarke % (Auto) (0.0-10.0) % Eos % (Auto) (0.0-4.0) % Baso % (Auto) (0.0-2.0) % Neut # (1.8-7.0) K/uL Lymph # (1.0-4.3) K/uL Clarke # (0.0-0.8) K/uL Eos # (0.0-0.7) K/uL Baso # (0.0-0.2) K/uL Neutrophils % (Manual) (50-75) % Lymphocytes % (Manual) (20-40) % Monocytes % (Manual) (0-10) % Eosinophils % (Manual) (0-4) % Platelet Estimate (NORMAL) Hypochromasia (manual) Basophilic Stippling Anisocytosis (manual) Puncture Site L/b pCO2 34 L (35-45) mm/Hg pO2 70 L (80-100) mm/Hg HCO3 22.4 (21-28) mmol/L ABG pH 7.40 (7.35-7.45) ABG Total CO2 22.1 (22-28) mmol/L ABG O2 Saturation 96.6 (95-98) % ABG Base Excess -3.2 L (-2.0-3.0) mmol/L ABG Hemoglobin 9.4 L (11.7-17.4) g/dL ABG Carboxyhemoglobin 2.0 H (0.5-1.5) % POC ABG HHb (Measured) 3.3 (0.0-5.0) % ABG Methemoglobin 0.8 (0.0-3.0) % Uriel Test Na A-a O2 Difference 315.0 mm/Hg Respiratory Index 4.5 Hgb O2 Saturation 93.8 L (95.0-98.0) % Vent Mode Mechanical Rate 14 FiO2 60.0 % Tidal Volume 450 PEEP 14 Crit Value Called To Dr martinez Crit Value Called By Salvador murillo computer systems technology instructor Crit Value Read Back Y Blood Gas Notified Time 1150 Sodium 135 (132-148) mmol/L Potassium 4.3 (3.6-5.2) mmol/L Chloride 94 L (98-107) mmol/L Carbon Dioxide 26 (22-30) mmol/L Anion Gap 19 (10-20) BUN 63 H (9-20) mg/dL Creatinine 2.9 H (0.8-1.5) MG/DL Est GFR ( Amer) 26 Est GFR (Non-Af Amer) 21 POC Glucose (mg/dL) 263 H (65-110) mg/dL Random Glucose 229 H (75-110) mg/dL Calcium 8.4 L (8.6-10.4) mg/dl Phosphorus 6.5 H (2.5-4.5) mg/dL Magnesium 2.6 H (1.6-2.3) mg/dL Total Bilirubin 0.7 (0.2-1.3) mg/dL AST 82 H (17-59) U/L ALT 74 H (21-72) U/L Alkaline Phosphatase 137 H (38-126) U/L Total Protein 6.3 (6.3-8.3) g/dL Albumin 3.3 L (3.5-5.0) g/dL Globulin 3.0 (2.2-3.9) gm/dL Albumin/Globulin Ratio 1.1 (1.0-2.1) PTH Intact Whole Molec (14-64) pg/mL 08/19/17 08/19/17 08/19/17 Range/Units 06:26 05:50 05:11 WBC 15.5 H (4.8-10.8) K/uL RBC 3.66 L (4.40-5.90) Mil/uL Hgb 8.4 L (12.0-18.0) g/dL Hct 27.0 L (35.0-51.0) % MCV 73.8 L (80.0-94.0) fL MCH 22.8 L (27.0-31.0) pg MCHC 31.0 L (33.0-37.0) g/dL RDW 22.1 H (11.5-14.5) % Plt Count 324 (130-400) K/uL MPV 9.4 (7.2-11.7) fL Neut % (Auto) 83.6 H (50.0-75.0) % Lymph % (Auto) 6.4 L (20.0-40.0) % Clarke % (Auto) 6.2 (0.0-10.0) % Eos % (Auto) 3.2 (0.0-4.0) % Baso % (Auto) 0.6 (0.0-2.0) % Neut # 12.9 H (1.8-7.0) K/uL Lymph # 1.0 (1.0-4.3) K/uL Clarke # 1.0 H (0.0-0.8) K/uL Eos # 0.5 (0.0-0.7) K/uL Baso # 0.1 (0.0-0.2) K/uL Neutrophils % (Manual) 89 H (50-75) % Lymphocytes % (Manual) 3 L (20-40) % Monocytes % (Manual) 5 (0-10) % Eosinophils % (Manual) 3 (0-4) % Platelet Estimate Normal (NORMAL) Hypochromasia (manual) Slight Basophilic Stippling Slight Anisocytosis (manual) Moderate Puncture Site Lr pCO2 39 (35-45) mm/Hg pO2 177 H (80-100) mm/Hg HCO3 25.6 (21-28) mmol/L ABG pH 7.42 (7.35-7.45) ABG Total CO2 26.5 (22-28) mmol/L ABG O2 Saturation 99.7 H (95-98) % ABG Base Excess 0.8 (-2.0-3.0) mmol/L ABG Hemoglobin 8.3 L (11.7-17.4) g/dL ABG Carboxyhemoglobin 1.9 H (0.5-1.5) % POC ABG HHb (Measured) 0.3 (0.0-5.0) % ABG Methemoglobin 1.1 (0.0-3.0) % Uriel Test Pos A-a O2 Difference 345.0 mm/Hg Respiratory Index 1.9 Hgb O2 Saturation 96.7 (95.0-98.0) % Vent Mode Prvc Mechanical Rate 14 FiO2 80.0 % Tidal Volume 450 PEEP 14 Crit Value Called To Crit Value Called By Crit Value Read Back Blood Gas Notified Time Sodium (132-148) mmol/L Potassium (3.6-5.2) mmol/L Chloride (98-107) mmol/L Carbon Dioxide (22-30) mmol/L Anion Gap (10-20) BUN (9-20) mg/dL Creatinine (0.8-1.5) MG/DL Est GFR ( Amer) Est GFR (Non-Af Amer) POC Glucose (mg/dL) 278 H (65-110) mg/dL Random Glucose (75-110) mg/dL Calcium (8.6-10.4) mg/dl Phosphorus (2.5-4.5) mg/dL Magnesium (1.6-2.3) mg/dL Total Bilirubin (0.2-1.3) mg/dL AST (17-59) U/L ALT (21-72) U/L Alkaline Phosphatase (38-126) U/L Total Protein (6.3-8.3) g/dL Albumin (3.5-5.0) g/dL Globulin (2.2-3.9) gm/dL Albumin/Globulin Ratio (1.0-2.1) PTH Intact Whole Molec (14-64) pg/mL 08/18/17 08/18/17 08/17/17 Range/Units 23:39 17:38 16:33 WBC (4.8-10.8) K/uL RBC (4.40-5.90) Mil/uL Hgb (12.0-18.0) g/dL Hct (35.0-51.0) % MCV (80.0-94.0) fL MCH (27.0-31.0) pg MCHC (33.0-37.0) g/dL RDW (11.5-14.5) % Plt Count (130-400) K/uL MPV (7.2-11.7) fL Neut % (Auto) (50.0-75.0) % Lymph % (Auto) (20.0-40.0) % Clarke % (Auto) (0.0-10.0) % Eos % (Auto) (0.0-4.0) % Baso % (Auto) (0.0-2.0) % Neut # (1.8-7.0) K/uL Lymph # (1.0-4.3) K/uL Clarke # (0.0-0.8) K/uL Eos # (0.0-0.7) K/uL Baso # (0.0-0.2) K/uL Neutrophils % (Manual) (50-75) % Lymphocytes % (Manual) (20-40) % Monocytes % (Manual) (0-10) % Eosinophils % (Manual) (0-4) % Platelet Estimate (NORMAL) Hypochromasia (manual) Basophilic Stippling Anisocytosis (manual) Puncture Site pCO2 (35-45) mm/Hg pO2 (80-100) mm/Hg HCO3 (21-28) mmol/L ABG pH (7.35-7.45) ABG Total CO2 (22-28) mmol/L ABG O2 Saturation (95-98) % ABG Base Excess (-2.0-3.0) mmol/L ABG Hemoglobin (11.7-17.4) g/dL ABG Carboxyhemoglobin (0.5-1.5) % POC ABG HHb (Measured) (0.0-5.0) % ABG Methemoglobin (0.0-3.0) % Uriel Test A-a O2 Difference mm/Hg Respiratory Index Hgb O2 Saturation (95.0-98.0) % Vent Mode Mechanical Rate FiO2 % Tidal Volume PEEP Crit Value Called To Crit Value Called By Crit Value Read Back Blood Gas Notified Time Sodium (132-148) mmol/L Potassium (3.6-5.2) mmol/L Chloride (98-107) mmol/L Carbon Dioxide (22-30) mmol/L Anion Gap (10-20) BUN (9-20) mg/dL Creatinine (0.8-1.5) MG/DL Est GFR ( Amer) Est GFR (Non-Af Amer) POC Glucose (mg/dL) 210 H 208 H (65-110) mg/dL Random Glucose (75-110) mg/dL Calcium (8.6-10.4) mg/dl Phosphorus (2.5-4.5) mg/dL Magnesium (1.6-2.3) mg/dL Total Bilirubin (0.2-1.3) mg/dL AST (17-59) U/L ALT (21-72) U/L Alkaline Phosphatase (38-126) U/L Total Protein (6.3-8.3) g/dL Albumin (3.5-5.0) g/dL Globulin (2.2-3.9) gm/dL Albumin/Globulin Ratio (1.0-2.1) PTH Intact Whole Molec 206 H (14-64) pg/mL Laboratory Results - last 24 hr 08/17/17 08/18/17 08/18/17 16:33 17:38 23:39 WBC RBC Hgb Hct MCV MCH MCHC RDW Plt Count MPV Neut % (Auto) Lymph % (Auto) Clarke % (Auto) Eos % (Auto) Baso % (Auto) Neut # Lymph # Clarke # Eos # Baso # Neutrophils % (Manual) Lymphocytes % (Manual) Monocytes % (Manual) Eosinophils % (Manual) Platelet Estimate Hypochromasia (manual) Basophilic Stippling Anisocytosis (manual) Puncture Site pCO2 pO2 HCO3 ABG pH ABG Total CO2 ABG O2 Saturation ABG Base Excess ABG Hemoglobin ABG Carboxyhemoglobin POC ABG HHb (Measured) ABG Methemoglobin Uriel Test A-a O2 Difference Respiratory Index Hgb O2 Saturation Vent Mode Mechanical Rate FiO2 Tidal Volume PEEP Crit Value Called To Crit Value Called By Crit Value Read Back Blood Gas Notified Time Sodium Potassium Chloride Carbon Dioxide Anion Gap BUN Creatinine Est GFR ( Amer) Est GFR (Non-Af Amer) POC Glucose (mg/dL) 208 H 210 H Random Glucose Calcium Phosphorus Magnesium Total Bilirubin AST ALT Alkaline Phosphatase Total Protein Albumin Globulin Albumin/Globulin Ratio PTH Intact Whole Molec 206 H 08/19/17 08/19/17 08/19/17 05:11 05:50 06:26 WBC 15.5 H RBC 3.66 L Hgb 8.4 L Hct 27.0 L MCV 73.8 L MCH 22.8 L MCHC 31.0 L RDW 22.1 H Plt Count 324 MPV 9.4 Neut % (Auto) 83.6 H Lymph % (Auto) 6.4 L Clarke % (Auto) 6.2 Eos % (Auto) 3.2 Baso % (Auto) 0.6 Neut # 12.9 H Lymph # 1.0 Clarke # 1.0 H Eos # 0.5 Baso # 0.1 Neutrophils % (Manual) 89 H Lymphocytes % (Manual) 3 L Monocytes % (Manual) 5 Eosinophils % (Manual) 3 Platelet Estimate Normal Hypochromasia (manual) Slight Basophilic Stippling Slight Anisocytosis (manual) Moderate Puncture Site Lr pCO2 39 pO2 177 H HCO3 25.6 ABG pH 7.42 ABG Total CO2 26.5 ABG O2 Saturation 99.7 H ABG Base Excess 0.8 ABG Hemoglobin 8.3 L ABG Carboxyhemoglobin 1.9 H POC ABG HHb (Measured) 0.3 ABG Methemoglobin 1.1 Uriel Test Pos A-a O2 Difference 345.0 Respiratory Index 1.9 Hgb O2 Saturation 96.7 Vent Mode Prvc Mechanical Rate 14 FiO2 80.0 Tidal Volume 450 PEEP 14 Crit Value Called To Crit Value Called By Crit Value Read Back Blood Gas Notified Time Sodium Potassium Chloride Carbon Dioxide Anion Gap BUN Creatinine Est GFR ( Amer) Est GFR (Non-Af Amer) POC Glucose (mg/dL) 278 H Random Glucose Calcium Phosphorus Magnesium Total Bilirubin AST ALT Alkaline Phosphatase Total Protein Albumin Globulin Albumin/Globulin Ratio PTH Intact Whole Molec 08/19/17 08/19/17 08/19/17 06:26 11:40 11:50 WBC RBC Hgb Hct MCV MCH MCHC RDW Plt Count MPV Neut % (Auto) Lymph % (Auto) Clarke % (Auto) Eos % (Auto) Baso % (Auto) Neut # Lymph # Clarke # Eos # Baso # Neutrophils % (Manual) Lymphocytes % (Manual) Monocytes % (Manual) Eosinophils % (Manual) Platelet Estimate Hypochromasia (manual) Basophilic Stippling Anisocytosis (manual) Puncture Site L/b pCO2 34 L pO2 70 L HCO3 22.4 ABG pH 7.40 ABG Total CO2 22.1 ABG O2 Saturation 96.6 ABG Base Excess -3.2 L ABG Hemoglobin 9.4 L ABG Carboxyhemoglobin 2.0 H POC ABG HHb (Measured) 3.3 ABG Methemoglobin 0.8 Uriel Test Na A-a O2 Difference 315.0 Respiratory Index 4.5 Hgb O2 Saturation 93.8 L Vent Mode Mechanical Rate 14 FiO2 60.0 Tidal Volume 450 PEEP 14 Crit Value Called To Dr martinez Crit Value Called By Salvador murillo computer systems technology instructor Crit Value Read Back Y Blood Gas Notified Time 1150 Sodium 135 Potassium 4.3 Chloride 94 L Carbon Dioxide 26 Anion Gap 19 BUN 63 H Creatinine 2.9 H Est GFR ( Amer) 26 Est GFR (Non-Af Amer) 21 POC Glucose (mg/dL) 263 H Random Glucose 229 H Calcium 8.4 L Phosphorus 6.5 H Magnesium 2.6 H Total Bilirubin 0.7 AST 82 H ALT 74 H Alkaline Phosphatase 137 H Total Protein 6.3 Albumin 3.3 L Globulin 3.0 Albumin/Globulin Ratio 1.1 PTH Intact Whole Molec Critical Care Progress Note - Nutrition Nutrition: Nutrition Category Date Time Status Heart Healthy Diet [DIET] Diets 08/09/17 Lunch Active Assessment/Plan (1) ARDS (adult respiratory distress syndrome) Current Visit: Yes Status: Acute Attending/Attestation - Attestation I have personally seen and examined this patient.: Yes I have fully participated in the care of the patient.: Yes I have reviewed all pertinent clinical information: Yes Notes (Text): 08/19/17 17:09 I have seen and examined the patient. Medical records, lab studies, and imaging were reviewed by me and a management plan was formulated on multidisciplinary rounds with resident Dr. Moore. I agree with their above documented assessment and plan. Placed pigtail catheter to drain right lung and decrease atelectasis. With minimal effusion drawn into pleur-e-vac, it is likely that the left side has even less, so we will not place a pigtail in the left lung. Coming down on oxygen requirements. Starting Dobutamine to increase cardiac output, discussed with Dr. Cortés - cardiology. Continue dialysis. Patient is alert and following commands with sedation stopped, only using versed prn at this point. Critical Care Time 35 minutes. Multi-disciplinary rounds were performed with house staff, nursing, speech therapy, respiratory therapy, pharmacy and nutrition with integrated input from the primary team/attending and other consulting services. The documented time is cumulative and includes review of patient data/exams/labs/chart review and examination of the patient on rounds and throughout the day; time is exclusive of any procedures or teaching time.
[2017-08-19] MEDS: Meropenem 500 MG in Sodium Chloride 0.9% 100 ML IVPB SCH (10:06)
[2017-08-19] MEDS: Docusate-Senna 50 mg-8.6 mg Tab PO SCH (10:07)
[2017-08-19] MEDS: Metoprolol Succinate 50 mg XL Tab PO SCH (10:07)
[2017-08-19] MEDS: Enoxaparin 30 mg Syringe SC SCH (10:08)
[2017-08-19] MEDS: Lactobacillus Acidophilus 500 MU Cap PO SCH ×2 (10:08→17:18)
[2017-08-19] MEDS ORDERED: Piperacillin/Tazobact 2.25 GM in Sodium Chloride 100 ML IVPB SCH (11:15)
[2017-08-19] MEDS ORDERED: (Novolin 70/30) NPH/Regular 70/30 Units/ml 10 ml vial SC SCH (11:30)
[2017-08-19 11:55] LABS: ABG MECHANICAL RATE 14; ARTERIAL BLOOD HGB O2 SAT 93.8 % (95.0-98.0); ATERIAL BLOOD GAS PEEP 14; DRAW SITE L/B; HHB 3.3 % (0.0-5.0); METHEMOGLOBIN 0.8 % (0.0-3.0)
--- NOTE | 2017-08-19 12:02 | CP.PCM.PN ---
Subjective - Date & Time of Evaluation Date of Evaluation: 08/19/17 Time of Evaluation: 12:01 - Subjective Subjective: seen and examined on vent, high fio2 requirement sedated uop 300cc at bedside Objective - Vital Signs/Intake and Output Vital Signs (last 24 hours): Temp Pulse Resp BP Pulse Ox 99.9 F H 81 25 H 128/46 L 98 08/19/17 07:47 08/19/17 09:15 08/19/17 09:15 08/19/17 09:15 08/19/17 09:15 Intake and Output: 08/19/17 08/19/17 06:59 18:59 Intake Total 912.2 51.3 Output Total 175 16 Balance 737.2 35.3 - Medications Medications: Current Medications Acetaminophen (Tylenol 650mg/20.3ml Solution Ud) 650 mg PO Q6 PRN PRN Reason: Temperature Last Admin: 08/16/17 12:31 Dose: 650 mg Albuterol/Ipratropium (Duoneb 3 Mg/0.5 Mg (3 Ml) Ud) 3 ml INH RQ4 [facility] Last Admin: 08/19/17 07:50 Dose: 3 ml Aspirin (Aspirin Chewable) 81 mg PO DAILY [facility] Last Admin: 08/19/17 10:08 Dose: Not Given Enoxaparin Sodium (Lovenox) 30 mg SC DAILY [facility] Last Admin: 08/19/17 10:08 Dose: Not Given Epoetin Chencho (Procrit) 10,000 unit IV MWF [facility] Last Admin: 08/17/17 18:23 Dose: Not Given Famotidine (Pepcid) 20 mg PO DAILY [facility] Last Admin: 08/19/17 10:08 Dose: Not Given Propofol (Diprivan) 1,000 mg in 100 mls @ 2.844 mls/hr IV .Q24H PRN; Protocol; 5 MCG/KG/MIN PRN Reason: TITRATE PER MD ORDER Last Admin: 08/19/17 05:46 Dose: 60 mcg/kg/min, 34.128 mls/hr Vancomycin HCl 1,500 mg/ (Sodium Chloride) 250 mls @ 166.6 mls/hr IVPB ONCE ONE Stop: 08/19/17 19:30 Cefepime HCl 1 gm/ Dextrose 50 mls @ 100 mls/hr IVPB Q24H [facility] Dobutamine HCl/Dextrose (Dobutamine/Dextrose 5% 500mg/250ml) 500 mg in 250 mls @ 7.02 mls/hr IV .Q24H [facility]; 2.5 MCG/KG/MIN PRN Reason: Protocol Insulin Detemir (Levemir) 10 unit SC Q12H [facility] Insulin Human Isoph/Insulin Regular (Novolin 70/30 (70/30 Units/Ml) 10 Ml) 0 units SC Q6H [facility] PRN Reason: Protocol Ipratropium [place] (Atrovent) 0.5 mg IH RQ6 PRN PRN Reason: Shortness of Breath Last Admin: 08/15/17 08:07 Dose: 0.5 mg Lactobacillus Acidophilus (Bacid Acidophilus) 1 cap PO BID [facility] Last Admin: 08/19/17 10:08 Dose: Not Given Metoprolol Succinate (Toprol Xl) 50 mg PO DAILY [facility] Last Admin: 08/19/17 10:07 Dose: 50 mg Midazolam HCl (Versed Inj) 2 mg IVP Q3H PRN PRN Reason: Agitation Rosuvastatin Calcium (Crestor) 10 mg PO HS [facility] Last Admin: 08/18/17 22:36 Dose: 10 mg Senna/Docusate Sodium (Senokot S 50 Mg-8.6 Mg) 1 tab PO BID [facility] Last Admin: 08/19/17 10:07 Dose: Not Given - Labs Labs: 08/19/17 06:26 08/19/17 06:26 PT 13.0 SECONDS (9.7-12.2) H 08/09/17 23:23 INR 1.2 08/09/17 23:23 APTT 55 SECONDS (21-34) H D 08/17/17 06:12 - Constitutional Appears: No Acute Distress (intubated sedated) - Head Exam Head Exam: NORMAL INSPECTION - Eye Exam Eye Exam: Normal appearance - ENT Exam Additional comments: et tube - Neck Exam Neck Exam: Normal Inspection - Respiratory Exam Respiratory Exam: Decreased Breath Sounds, Rales (mechanical vent sounds) - Cardiovascular Exam Cardiovascular Exam: REGULAR RHYTHM, RRR - GI/Abdominal Exam GI & Abdominal Exam: Distended, Soft - Extremities Exam Extremities Exam: Pedal Edema Assessment and Plan (1) Acute on chronic renal failure Status: Acute (2) CHF (congestive heart failure) Status: Acute (3) History of DVT (deep vein thrombosis) Status: Acute (4) CAD (coronary artery disease) Status: Acute (5) CKD (chronic kidney disease) Status: Acute - Assessment and Plan (Free Text) Assessment: hd today, reassess tomorrow aggressive uf as tolerated on jina plan for tracheostomy noted
[2017-08-19] MEDS: Insulin Detemir 100 units/ml Vial (Levemir) SC SCH (12:10)
[2017-08-19] MEDS: DOBUTamine 500mg/250ml D5W 500 MG/250 ML BAG IV SCH (12:11)
[2017-08-19] MEDS: Acetaminophen 650mg/20.3ml solution UD PO PRN (12:11)
--- NOTE | 2017-08-19 12:15 | CP.PCM.CON ---
History of Present Illness - History of Present Illness History of Present Illness: Reason for consultation: Bilateral pleural effusions, loculated. Requested by : Dr. Cullen Barth. Pt s/e at bedside. Imaging studies reviewed. 77 yo male, with multiple caddioresp. renal, vascular comorbidities admitted with hxs of chest pain and sob. Resuscitated and currently intubated on meschanical ventilator. Pt is on antiplatelet regimen. I have reviewed chest ct((08/18 and 08/13/17) : Bilateral pleural effusions( Moderate) with extrinsic compressive atelectasis. No evidence of loculation. Diffuse bilat. ground glass densities(edema/ards). I would recommend pig-tail cath drainage of both right and left effusions at bedside as he is on antiplatelet medications and is least invasive. I will follow up the pt with you. d/w ICU attending , surgery residents on round, and dr. Barth. Past Patient History - Infectious Disease Hx of Infectious Diseases: None - Past Medical History & Family History Past Medical History?: Yes - Past Social History Smoking Status: Never Smoked Alcohol: None Drugs: Denies Home Situation {Lives}: With Family - CARDIAC Hx Congestive Heart Failure: Yes Hx Hypercholesterolemia: Yes Hx Hypertension: Yes - PULMONARY Hx Asthma: Yes - RENAL Hx Chronic Kidney Disease: Yes (REANAL INSUFFICIENCY) Hx Kidney Stones: Yes - ENDOCRINE/METABOLIC Hx Diabetes Mellitus Type 2: Yes - MUSCULOSKELETAL/RHEUMATOLOGICAL Hx Arthritis: Yes - GENITOURINARY/GYNECOLOGICAL Hx Genitourinary Disorders: Yes Hx Prostate Problems: Yes (ELEVATED PSA) - PSYCHIATRIC Hx Anxiety: Yes Hx Depression: Yes Hx Substance Use: No - SURGICAL HISTORY Hx Surgeries: Yes Other/Comment: pacemaker on - ANESTHESIA Hx Anesthesia: Yes Hx Anesthesia Reactions: No Hx Malignant Hyperthermia: No Meds Allergies/Adverse Reactions: Allergies Allergy/AdvReac Type Severity Reaction Status Date / Time No Known Allergies Allergy Verified 08/06/17 13:20 - Medications Medications: Current Medications Acetaminophen (Tylenol 650mg/20.3ml Solution Ud) 650 mg PO Q6 PRN PRN Reason: Temperature Last Admin: 08/19/17 12:11 Dose: 650 mg Albuterol/Ipratropium (Duoneb 3 Mg/0.5 Mg (3 Ml) Ud) 3 ml INH RQ4 [facility] Last Admin: 08/19/17 07:50 Dose: 3 ml Aspirin (Aspirin Chewable) 81 mg PO DAILY [facility] Last Admin: 08/19/17 10:08 Dose: Not Given Enoxaparin Sodium (Lovenox) 30 mg SC DAILY [facility] Last Admin: 08/19/17 10:08 Dose: Not Given Epoetin Chencho (Procrit) 10,000 unit IV MWF [facility] Last Admin: 08/17/17 18:23 Dose: Not Given Famotidine (Pepcid) 20 mg PO DAILY [facility] Last Admin: 08/19/17 10:08 Dose: Not Given Propofol (Diprivan) 1,000 mg in 100 mls @ 2.844 mls/hr IV .Q24H PRN; Protocol; 5 MCG/KG/MIN PRN Reason: TITRATE PER MD ORDER Last Admin: 08/19/17 05:46 Dose: 60 mcg/kg/min, 34.128 mls/hr Vancomycin HCl 1,500 mg/ (Sodium Chloride) 250 mls @ 166.6 mls/hr IVPB ONCE ONE Stop: 08/19/17 19:30 Cefepime HCl 1 gm/ Dextrose 50 mls @ 100 mls/hr IVPB Q24H [facility] Dobutamine HCl/Dextrose (Dobutamine/Dextrose 5% 500mg/250ml) 500 mg in 250 mls @ 7.02 mls/hr IV .Q24H [facility]; 2.5 MCG/KG/MIN PRN Reason: Protocol Last Admin: 08/19/17 12:11 Dose: 2.5 mcg/kg/min, 7.02 mls/hr Insulin Detemir (Levemir) 10 unit SC Q12H [facility] Last Admin: 08/19/17 12:10 Dose: 10 unit Insulin Human Isoph/Insulin Regular (Novolin 70/30 (70/30 Units/Ml) 10 Ml) 0 units SC Q6H [facility] PRN Reason: Protocol Last Admin: 08/19/17 12:10 Dose: 6 units Ipratropium [place] (Atrovent) 0.5 mg IH RQ6 PRN PRN Reason: Shortness of Breath Last Admin: 08/15/17 08:07 Dose: 0.5 mg Lactobacillus Acidophilus (Bacid Acidophilus) 1 cap PO BID [facility] Last Admin: 08/19/17 10:08 Dose: Not Given Metoprolol Succinate (Toprol Xl) 50 mg PO DAILY [facility] Last Admin: 08/19/17 10:07 Dose: 50 mg Midazolam HCl (Versed Inj) 2 mg IVP Q3H PRN PRN Reason: Agitation Rosuvastatin Calcium (Crestor) 10 mg PO HS [facility] Last Admin: 08/18/17 22:36 Dose: 10 mg Senna/Docusate Sodium (Senokot S 50 Mg-8.6 Mg) 1 tab PO BID [facility] Last Admin: 08/19/17 10:07 Dose: Not Given Results - Vital Signs Recent Vital Signs: Last Vital Signs Temp 100.2 F H 08/19/17 12:00 Pulse 81 08/19/17 09:15 Resp 22 08/19/17 12:11 BP 114/40 L 08/19/17 12:11 Pulse Ox 100 08/19/17 12:11 - Labs Result Diagrams: 08/19/17 06:26 08/19/17 06:26 Labs: Laboratory Results - last 24 hr 08/18/17 08/18/17 08/18/17 12:05 17:38 23:39 WBC RBC Hgb Hct MCV MCH MCHC RDW Plt Count MPV Neut % (Auto) Lymph % (Auto) Cameron % (Auto) Eos % (Auto) Baso % (Auto) Neut # Lymph # Cameron # Eos # Baso # Neutrophils % (Manual) Lymphocytes % (Manual) Monocytes % (Manual) Eosinophils % (Manual) Platelet Estimate Hypochromasia (manual) Basophilic Stippling Anisocytosis (manual) Puncture Site L/b pCO2 38 pO2 146 H HCO3 24.6 ABG pH 7.41 ABG Total CO2 25.3 ABG O2 Saturation 99.4 H ABG Base Excess -0.4 ABG Hemoglobin 10.2 L ABG Carboxyhemoglobin 1.8 H POC ABG HHb (Measured) 0.6 ABG Methemoglobin 0.8 Uriel Test Na A-a O2 Difference 520.0 Respiratory Index 3.6 Hgb O2 Saturation 96.8 Vent Mode Mechanical Rate 14 FiO2 100.0 Tidal Volume 450 PEEP 14 Crit Value Called To Crit Value Called By Crit Value Read Back Blood Gas Notified Time Sodium Potassium Chloride Carbon Dioxide Anion Gap BUN Creatinine Est GFR ( Amer) Est GFR (Non-Af Amer) POC Glucose (mg/dL) 208 H 210 H Random Glucose Calcium Phosphorus Magnesium Total Bilirubin AST ALT Alkaline Phosphatase Total Protein Albumin Globulin Albumin/Globulin Ratio 08/19/17 08/19/17 08/19/17 05:11 05:50 06:26 WBC 15.5 H RBC 3.66 L Hgb 8.4 L Hct 27.0 L MCV 73.8 L MCH 22.8 L MCHC 31.0 L RDW 22.1 H Plt Count 324 MPV 9.4 Neut % (Auto) 83.6 H Lymph % (Auto) 6.4 L Cameron % (Auto) 6.2 Eos % (Auto) 3.2 Baso % (Auto) 0.6 Neut # 12.9 H Lymph # 1.0 Cameron # 1.0 H Eos # 0.5 Baso # 0.1 Neutrophils % (Manual) 89 H Lymphocytes % (Manual) 3 L Monocytes % (Manual) 5 Eosinophils % (Manual) 3 Platelet Estimate Normal Hypochromasia (manual) Slight Basophilic Stippling Slight Anisocytosis (manual) Moderate Puncture Site Lr pCO2 39 pO2 177 H HCO3 25.6 ABG pH 7.42 ABG Total CO2 26.5 ABG O2 Saturation 99.7 H ABG Base Excess 0.8 ABG Hemoglobin 8.3 L ABG Carboxyhemoglobin 1.9 H POC ABG HHb (Measured) 0.3 ABG Methemoglobin 1.1 Uriel Test Pos A-a O2 Difference 345.0 Respiratory Index 1.9 Hgb O2 Saturation 96.7 Vent Mode Prvc Mechanical Rate 14 FiO2 80.0 Tidal Volume 450 PEEP 14 Crit Value Called To Crit Value Called By Crit Value Read Back Blood Gas Notified Time Sodium Potassium Chloride Carbon Dioxide Anion Gap BUN Creatinine Est GFR ( Amer) Est GFR (Non-Af Amer) POC Glucose (mg/dL) 278 H Random Glucose Calcium Phosphorus Magnesium Total Bilirubin AST ALT Alkaline Phosphatase Total Protein Albumin Globulin Albumin/Globulin Ratio 08/19/17 08/19/17 08/19/17 06:26 11:40 11:50 WBC RBC Hgb Hct MCV MCH MCHC RDW Plt Count MPV Neut % (Auto) Lymph % (Auto) Cameron % (Auto) Eos % (Auto) Baso % (Auto) Neut # Lymph # Cameron # Eos # Baso # Neutrophils % (Manual) Lymphocytes % (Manual) Monocytes % (Manual) Eosinophils % (Manual) Platelet Estimate Hypochromasia (manual) Basophilic Stippling Anisocytosis (manual) Puncture Site L/b pCO2 34 L pO2 70 L HCO3 22.4 ABG pH 7.40 ABG Total CO2 22.1 ABG O2 Saturation 96.6 ABG Base Excess -3.2 L ABG Hemoglobin 9.4 L ABG Carboxyhemoglobin 2.0 H POC ABG HHb (Measured) 3.3 ABG Methemoglobin 0.8 Uriel Test Na A-a O2 Difference 315.0 Respiratory Index 4.5 Hgb O2 Saturation 93.8 L Vent Mode Mechanical Rate 14 FiO2 60.0 Tidal Volume 450 PEEP 14 Crit Value Called To Dr martinez Crit Value Called By Salvador murillo laborer chemical processing Crit Value Read Back Y Blood Gas Notified Time 1150 Sodium 135 Potassium 4.3 Chloride 94 L Carbon Dioxide 26 Anion Gap 19 BUN 63 H Creatinine 2.9 H Est GFR ( Amer) 26 Est GFR (Non-Af Amer) 21 POC Glucose (mg/dL) 263 H Random Glucose 229 H Calcium 8.4 L Phosphorus 6.5 H Magnesium 2.6 H Total Bilirubin 0.7 AST 82 H ALT 74 H Alkaline Phosphatase 137 H Total Protein 6.3 Albumin 3.3 L Globulin 3.0 Albumin/Globulin Ratio 1.1
--- NOTE | 2017-08-19 13:43 | CP.PCM.PN ---
<Grace Diego - Last Filed: 08/19/17 13:36> Subjective - Date & Time of Evaluation Date of Evaluation: 08/19/17 Time of Evaluation: 10:10 - Subjective Subjective: Resident progress note for Dr. Cortés Patient seen and examined with a family member at bedside. Patient is awake and intubated. No acute events reported overnight. Unable to obtain further ROS due to patient's intubation status. Objective - Vital Signs/Intake and Output Vital Signs (last 24 hours): Temp Pulse Resp BP Pulse Ox 100.2 F H 81 22 114/40 L 100 08/19/17 12:00 08/19/17 09:15 08/19/17 12:11 08/19/17 12:11 08/19/17 12:11 Intake and Output: 08/19/17 08/19/17 06:59 18:59 Intake Total 912.2 151.3 Output Total 175 16 Balance 737.2 135.3 - Medications Medications: Current Medications Acetaminophen (Tylenol 650mg/20.3ml Solution Ud) 650 mg PO Q6 PRN PRN Reason: Temperature Last Admin: 08/19/17 12:11 Dose: 650 mg Albuterol/Ipratropium (Duoneb 3 Mg/0.5 Mg (3 Ml) Ud) 3 ml INH RQ4 [facility] Last Admin: 08/19/17 13:33 Dose: 3 ml Aspirin (Aspirin Chewable) 81 mg PO DAILY [facility] Last Admin: 08/19/17 10:08 Dose: Not Given Enoxaparin Sodium (Lovenox) 30 mg SC DAILY [facility] Last Admin: 08/19/17 10:08 Dose: Not Given Epoetin Chencho (Procrit) 10,000 unit IV MWF [facility] Last Admin: 08/17/17 18:23 Dose: Not Given Famotidine (Pepcid) 20 mg PO DAILY [facility] Last Admin: 08/19/17 10:08 Dose: Not Given Propofol (Diprivan) 1,000 mg in 100 mls @ 2.844 mls/hr IV .Q24H PRN; Protocol; 5 MCG/KG/MIN PRN Reason: TITRATE PER MD ORDER Last Admin: 08/19/17 12:45 Dose: 24.96 mcg/kg/min, 14.2 mls/hr Vancomycin HCl 1,500 mg/ (Sodium Chloride) 500 mls @ 250 mls/hr IVPB ONCE ONE Stop: 08/19/17 19:59 Cefepime HCl 1 gm/ Dextrose 50 mls @ 100 mls/hr IVPB Q24H [facility] Last Admin: 08/19/17 12:48 Dose: 100 mls/hr Dobutamine HCl/Dextrose (Dobutamine/Dextrose 5% 500mg/250ml) 500 mg in 250 mls @ 7.02 mls/hr IV .Q24H [facility]; 2.5 MCG/KG/MIN PRN Reason: Protocol Last Admin: 08/19/17 12:11 Dose: 2.5 mcg/kg/min, 7.02 mls/hr Insulin Detemir (Levemir) 10 unit SC Q12H [facility] Last Admin: 08/19/17 12:10 Dose: 10 unit Insulin Human Isoph/Insulin Regular (Novolin 70/30 (70/30 Units/Ml) 10 Ml) 0 units SC Q6H [facility] PRN Reason: Protocol Last Admin: 08/19/17 12:10 Dose: 6 units Ipratropium [place] (Atrovent) 0.5 mg IH RQ6 PRN PRN Reason: Shortness of Breath Last Admin: 08/15/17 08:07 Dose: 0.5 mg Lactobacillus Acidophilus (Bacid Acidophilus) 1 cap PO BID [facility] Last Admin: 08/19/17 10:08 Dose: Not Given Metoprolol Succinate (Toprol Xl) 50 mg PO DAILY [facility] Last Admin: 08/19/17 10:07 Dose: 50 mg Midazolam HCl (Versed Inj) 2 mg IVP Q3H PRN PRN Reason: Agitation Rosuvastatin Calcium (Crestor) 10 mg PO HS [facility] Last Admin: 08/18/17 22:36 Dose: 10 mg - Labs Labs: 08/19/17 06:26 08/19/17 06:26 PT 13.0 SECONDS (9.7-12.2) H 08/09/17 23:23 INR 1.2 08/09/17 23:23 APTT 55 SECONDS (21-34) H D 08/17/17 06:12 - Constitutional Appears: No Acute Distress, Chronically Ill - Head Exam Head Exam: ATRAUMATIC - Respiratory Exam Respiratory Exam: Decreased Breath Sounds, NORMAL BREATHING PATTERN - Cardiovascular Exam Cardiovascular Exam: REGULAR RHYTHM, +S1, +S2 - GI/Abdominal Exam GI & Abdominal Exam: Soft, Normal Bowel Sounds - Extremities Exam Extremities Exam: absent: Joint Swelling - Neurological Exam Neurological Exam: Awake. absent: Alert, Oriented x3 - Skin Skin Exam: Dry, Normal Color, Warm Assessment and Plan - Assessment and Plan (Free Text) Assessment: CAD, chest pain -No plans for cardiac cath at this time (acute respiratory failure and elevated Cr), history of abnormal stress test -Elevated Troponin likely due to chest compressions during code blue -No acute ST changes on EKG -Continue heparin drip, ASA, Plavix, Crestor, Lasix, Metoprolol -Echocardiogram from 08/08/17 showed left ventricle systolic function is severely impaired. EF: 25-30%; global hypokinesis of LV mild AR. MR is moderate. Moderate-severe pulmonary hypertesnion -Recommend prophylaxis lovenox Systolic CHF exacerbation -BNP [id number] on 08/06/17 -Continue heparin drip, ASA, Plavix, Crestor, Lasix, Metoprolol -Echocardiogram from 08/08/17 showed left ventricle systolic function is severely impaired. EF: 25-30%; global hypokinesis of LV mild AR. MR is moderate. Moderate-severe pulmonary hypertesnion -Start dobutamine <Sina Cortés - Last Filed: 08/20/17 07:34> Objective - Vital Signs/Intake and Output Vital Signs (last 24 hours): Temp Pulse Resp BP Pulse Ox 99.4 F 101 H 29 H 167/63 H 98 08/20/17 04:00 08/20/17 03:17 08/20/17 03:17 08/20/17 03:17 08/20/17 03:17 Intake and Output: 08/20/17 08/20/17 06:59 18:59 Intake Total 720 Output Total 65 Balance 655 - Medications Medications: Current Medications Acetaminophen (Tylenol 650mg/20.3ml Solution Ud) 650 mg PO Q6 PRN PRN Reason: Temperature Last Admin: 08/19/17 12:11 Dose: 650 mg Albuterol/Ipratropium (Duoneb 3 Mg/0.5 Mg (3 Ml) Ud) 3 ml INH RQ4 [facility] Last Admin: 08/20/17 03:15 Dose: 3 ml Aspirin (Aspirin Chewable) 81 mg PO DAILY [facility] Last Admin: 08/19/17 10:08 Dose: Not Given Enoxaparin Sodium (Lovenox) 30 mg SC DAILY [facility] Last Admin: 08/19/17 10:08 Dose: Not Given Epoetin Chencho (Procrit) 10,000 unit IV MWF [facility] Last Admin: 08/19/17 18:36 Dose: 10,000 unit Famotidine (Pepcid) 20 mg PO DAILY [facility] Last Admin: 08/19/17 10:08 Dose: Not Given Cefepime HCl 1 gm/ Dextrose 50 mls @ 100 mls/hr IVPB Q24H [facility] Last Admin: 08/19/17 12:48 Dose: 100 mls/hr Dobutamine HCl/Dextrose (Dobutamine/Dextrose 5% 500mg/250ml) 500 mg in 250 mls @ 7.02 mls/hr IV .Q24H [facility]; 2.5 MCG/KG/MIN PRN Reason: Protocol Last Admin: 08/19/17 12:11 Dose: 2.5 mcg/kg/min, 7.02 mls/hr Insulin Aspart (Novolog) 0 unit SC Q6 [facility] PRN Reason: Protocol Last Admin: 08/20/17 06:40 Dose: 8 unit Insulin Detemir (Levemir) 10 unit SC Q12H [facility] Last Admin: 08/20/17 00:11 Dose: 10 unit Ipratropium [place] (Atrovent) 0.5 mg IH RQ6 PRN PRN Reason: Shortness of Breath Last Admin: 08/15/17 08:07 Dose: 0.5 mg Lactobacillus Acidophilus (Bacid Acidophilus) 1 cap PO BID [facility] Last Admin: 08/19/17 17:18 Dose: 1 cap Metoprolol Succinate (Toprol Xl) 50 mg PO DAILY [facility] Last Admin: 08/19/17 10:07 Dose: 50 mg Midazolam HCl (Versed Inj) 2 mg IVP Q3H PRN PRN Reason: Agitation Last Admin: 08/19/17 23:16 Dose: 2 mg Rosuvastatin Calcium (Crestor) 10 mg PO HS [facility] Last Admin: 08/19/17 22:15 Dose: 10 mg - Labs Labs: 08/20/17 06:44 08/20/17 06:44 PT 13.0 SECONDS (9.7-12.2) H 08/09/17 23:23 INR 1.2 08/09/17 23:23 APTT 55 SECONDS (21-34) H D 08/17/17 06:12 Assessment and Plan - Assessment and Plan (Free Text) Assessment: Patient seen and evaluated with the Occupational Therapist Rehab Manager Plan of care as above
--- NOTE | 2017-08-19 16:25 | RAD ---
HISTORY: s/p pigtail right side COMPARISON: Comparison is made to 08/19/2017 FINDINGS: LUNGS: Again seen is moderate pulmonary vascular congestion. The ET tube tip is seen at the level of the clavicles. PLEURA: Bilateral pleural effusions are again noted. CARDIOVASCULAR: Cardiomegaly is again seen. OSSEOUS STRUCTURES: No significant abnormalities. VISUALIZED UPPER ABDOMEN: NG tube seen extending to the abdomen OTHER FINDINGS: Right jugular central line is again seen in place. IMPRESSION: Moderate pulmonary vascular congestion. Bilateral pleural effusion and cardiomegaly. Appropriate position of the support devices.
--- NOTE | 2017-08-19 16:57 | CP.PCM.PN ---
Subjective - Date & Time of Evaluation Date of Evaluation: 08/19/17 Time of Evaluation: 04:50 - Subjective Subjective: dictated Objective - Vital Signs/Intake and Output Vital Signs (last 24 hours): Temp Pulse Resp BP Pulse Ox 98.8 F 91 H 27 H 154/45 H 98 08/19/17 15:29 08/19/17 16:00 08/19/17 16:00 08/19/17 15:52 08/19/17 16:00 Intake and Output: 08/19/17 08/19/17 06:59 18:59 Intake Total 912.2 672.6 Output Total 175 101 Balance 737.2 571.6 - Medications Medications: Current Medications Acetaminophen (Tylenol 650mg/20.3ml Solution Ud) 650 mg PO Q6 PRN PRN Reason: Temperature Last Admin: 08/19/17 12:11 Dose: 650 mg Albuterol/Ipratropium (Duoneb 3 Mg/0.5 Mg (3 Ml) Ud) 3 ml INH RQ4 [facility] Last Admin: 08/19/17 16:01 Dose: 3 ml Aspirin (Aspirin Chewable) 81 mg PO DAILY [facility] Last Admin: 08/19/17 10:08 Dose: Not Given Enoxaparin Sodium (Lovenox) 30 mg SC DAILY [facility] Last Admin: 08/19/17 10:08 Dose: Not Given Epoetin Chencho (Procrit) 10,000 unit IV F [facility] Last Admin: 08/17/17 18:23 Dose: Not Given Famotidine (Pepcid) 20 mg PO DAILY [facility] Last Admin: 08/19/17 10:08 Dose: Not Given Propofol (Diprivan) 1,000 mg in 100 mls @ 2.844 mls/hr IV .Q24H PRN; Protocol; 5 MCG/KG/MIN PRN Reason: TITRATE PER MD ORDER Last Titration: 08/19/17 15:37 Dose: 0 mcg/kg/min, 0 mls/hr Vancomycin HCl 1,500 mg/ (Sodium Chloride) 500 mls @ 250 mls/hr IVPB ONCE ONE Stop: 08/19/17 19:59 Cefepime HCl 1 gm/ Dextrose 50 mls @ 100 mls/hr IVPB Q24H [facility] Last Admin: 08/19/17 12:48 Dose: 100 mls/hr Dobutamine HCl/Dextrose (Dobutamine/Dextrose 5% 500mg/250ml) 500 mg in 250 mls @ 7.02 mls/hr IV .Q24H [facility]; 2.5 MCG/KG/MIN PRN Reason: Protocol Last Admin: 08/19/17 12:11 Dose: 2.5 mcg/kg/min, 7.02 mls/hr Insulin Aspart (Novolog) 0 unit SC Q6 [facility] PRN Reason: Protocol Insulin Detemir (Levemir) 10 unit SC Q12H [facility] Last Admin: 08/19/17 12:10 Dose: 10 unit Ipratropium [place] (Atrovent) 0.5 mg IH RQ6 PRN PRN Reason: Shortness of Breath Last Admin: 08/15/17 08:07 Dose: 0.5 mg Lactobacillus Acidophilus (Bacid Acidophilus) 1 cap PO BID [facility] Last Admin: 08/19/17 10:08 Dose: Not Given Metoprolol Succinate (Toprol Xl) 50 mg PO DAILY [facility] Last Admin: 08/19/17 10:07 Dose: 50 mg Midazolam HCl (Versed Inj) 2 mg IVP Q3H PRN PRN Reason: Agitation Rosuvastatin Calcium (Crestor) 10 mg PO HS [facility] Last Admin: 08/18/17 22:36 Dose: 10 mg - Labs Labs: 08/19/17 06:26 08/19/17 06:26 PT 13.0 SECONDS (9.7-12.2) H 08/09/17 23:23 INR 1.2 08/09/17 23:23 APTT 55 SECONDS (21-34) H D 08/17/17 06:12
[2017-08-19] MEDS: Midazolam 2 MG/2 ML VIAL IVP PRN ×2 (17:08→23:16)
--- NOTE | 2017-08-19 17:16 | CP.PCM.PN ---
Subjective - Date & Time of Evaluation Date of Evaluation: 08/19/17 Time of Evaluation: 17:15 - Subjective Subjective: Hospitalist Progress Note Patient was seen and examined at 5:15 PM 08/19/17 ICU Bed #5. 77 year old male with extensive medical history (please see Assessment and Plans below) was admitted on 08/06/17 for evaluation of SOB and Chest Pain. He was planned for Cardiac Catheterization on 08/09/17 due to his elevated Cr. Patient then had Acute Respiratory Failure and had to be intubated and placed on vent. Please see details below. ROS are not possible as patient is currently intubated/on ventilator. Exam: - Head Exam Head Exam: NORMAL INSPECTION - Eye Exam Eye Exam: could not evaluate EOM due to patient's current status Pupil Exam: round, equal, and reactive to light - Respiratory Exam Respiratory Exam: Decreased Breath Sounds however they are clearer today than before Additional comments: intubated on vent - Cardiovascular Exam Cardiovascular Exam: REGULAR RHYTHM, +S1, +S2 - GI/Abdominal Exam GI & Abdominal Exam: Distended, Soft, Normal Bowel Sounds, could not palpate liver and spleen. absent: Firm, Guarding, Rigid, Tenderness, Rebound Additional comments: obese habitus - Extremities Exam Extremities Exam: Normal Capillary Refill, Pedal Edema. absent: Tenderness Additional comments: Prevalon boots b/l - Neurological Exam Additional comments: sedated - Skin Skin Exam: Dry, Normal Color, Warm Assessment and Plan - Assessment and Plan (Free Text) Assessment: (1) Acute Respiratory Failure ARDS Cardiac Arrest Pulmonary Edema NONSTEMI Assessment and Plan: * Code Blue on 08/10: asystole, cardiopulmonary resuscitative measures initiated , requiring 3 epis, bicarbonate, ROSC achieved and intubated and brought to the ICU for further management * 08/10: Central line placed by ICU; placed on tridil drip; heparin drip c/w * 08/11: Patient placed on Lasix IV. On heparin drip. No plans for cardiac cath at time time. Chest Xray (08/11/17): NG tube extending into the stomach. Endotracheal tube extending into the mild thoracic trachea. Left sided pacemaker. multiple overlying external wires and tubing, Moderate severe venous congestion with prominent confluent airspace opacities in the mid to lower lung zones with associated small to moderate bilateral pleural effusions. scattered nodular densities in both lungs. Cardiomegaly. Degenerative changes in the spine and shoulders. * 08/12: Chest xray (08/12/17): right basilar opacity. Small right pleural effusion. Lines and tubes unchanged.-->C/w Lasix. Discussed with Dr. Mena (pulm) , recommended for CT Chest w/o contrast for possible ARDS. increased peep 10 * 08/13: pending chest /abdomen xray for this morning; self-extubated and reintubated overnight; off tridil drip secondary to hypotension post intubation ; on heparin drip * CT Chest/Abdomen/Pelvis (08/13): moderate to large bilateral pleural effusions largeer on thr right associated with atelectasis at lower lobes. Nonspecific ground-glass opacities in the upper lobe new may be due to pulmonary vascular congestion. moderately cardiomegaly. No evidence of bowel obstruction. Moderately to markedly enlarged prostate. nonobstructing calculus at mid to lower pole left kidney. Gallstone without evidence of cholecystitis. Scattered diverticulosis without evidence of diverticulitis * Repeat CT Chest 08/18 showed moderate Bilateral Pleural Effusion associated with compressive consolidations. I spoke with Cardiothoracic Surgeon Dr. Lopez and he recommended bilateral pigtail catheters. ICU Team placed Right Chest Pigtail Catheter 08/19 and as only small amount of fluid was produced, Left Chest Pigtail Catheter was not placed. Pleural Fluid studies (Total Protein, LDH , Glucose, Cell count with diff, Gram Stain and Culture, pH) have been ordered . * Patient was planned for Tracheostomy 08/19/17 however due to his PEEP of 14 this is currently on hold (2) Chest pain Assessment and Plan: * Cardiology (Dr. Cortés) on board-->help appreciated * All trops WNL; Troponin positive in light of CPR * EKG x2 = Sinus tachycardia notes with possible left atrial enlargement; no apparent T segment elevations in contiguous leads * Patient was Heparin Drip but this was discontinued 08/17/17 * Patient's cardiac catherization cancelled secondary to rise in creatinine (2.3 ) on 08/09/17. * Patient has hx of abnormal stress test. Discussed with cardiology and nephrology given change in Cr on 08/09. * Echocardiogram (08/08/17): left ventricle systolic function is severely impaired. EF: 25-30%; global hypokinesis of left ventricle mild aortic regurgitation. Mitral regurgitation is moderate. Moderate-severe pulmonary hypertesnion * Hx of ACID * Aspirin 81mg PO daily * Plavix 75mg PO daily * Crestor 10mg POqHS * Metoprolol Succinate 50 mg PO 1x/day was placed on Hold 08/17/17 * Off Arb secondary to ARF * TSH: 1.16; T4: 1.53 (3) Acute Systolic CHF exacerbation Assessment and Plan: * Cardiology Dr. Cortés is following * Transferred to the ICU on 08/10 following cardiac arrest and intubation. * Echocardiogram (08/08/17): left ventricular systolic function is severely impaired. EF: 25-30%; global hypokinesis of left ventricle mild aortic regurgitation. Mitral regurgitation is moderate. Moderate-severe pulmonary hypertension * Height of bed at 45 degrees, Strict ins and outs, monitor daily weights * Aspirin 81mg PO daily * Plavix 75mg PO daily * Crestor 10mg POqHS * Metoprolol Succinate 50mg PO 1x/day was placed on Hold 08/17/17 * Off Arb secondary to ARF * Has been receiving HD 08/16/17 and 08/19/17 to help reduce the pulmonary congestion Status: Acute (4) Pneumonia Assessment and Plan: * Pulmonary (Dr. Mena) on board-->help appreciated * Infectious Disease (Dr. Lawrence)-->help appreciated * Rapid A strep, Influenza A and B studies, Urine Legionella, Mycoplasma studies = Negative * Florastor 250mg PO bid * +Strep Pneumoniae in the urine * 08/12: Will repeat urine studies and exchange out the jaquez * Meropenem 500mg IV Q 8 hours ( 08/14/17 through 08/18/17) and Zosyn 2.25 mg IV Q6H (08/13/17 through 08/18/17) * 08/18: Chest X Ray shows scattered dense confluent pathcy areas of consolidative change seen throughout both lungs most prominent in left lung and right lung base * Cefepime 1 gm IV A24H (08/19/17) Status: Acute (5) CAD (coronary artery disease) Assessment and Plan: * Hx of cardiac stent in the past * Cardiac cath on hold given events on 08/10 Status: Acute (6) HTN (hypertension) Assessment and Plan: * Metoprolol XL 50 mg PO 1x/day Status: Chronic (7) CKD (chronic kidney disease) Assessment and Plan: * Dr. Miranda (nephrology) consulted on the case * Hx of CKD * GFR 45 which appears to be around baseline * Stopped ARB given rise in CR * Off IV fluids given pulmonary edema * Monitor in and output: has not been producing significant amount of urine and HD was recommended by Nephrology * Receiving HD through Left Femoral Catheter Status: Acute (8) Diabetes mellitus Assessment and Plan: * Accuchecks Q6H * A1c 8.4 * Brcgzdy19 units subqHS * Insulin Aspart 6 units subq Q6H Status: Chronic (9) HLD (hyperlipidemia) Assessment and Plan: * On Crestor 10 mg Po HS Status: Chronic (10) Constipation Assessment and Plan: * Having bowel movements per nursing notes (08/14/17) * Senokot 50/8.6 1 tab PO 2x/day * 08/12: Will given ducolax suppository X1 * 08/13: has not had bowel movement; ordered for abdominal/chest xray in light of abdominal distension * CT Chest/Abdomen/Pelvis (08/13): moderate to large bilateral pleural effusions largeer on thr right associated with atelectasis at lower lobes. Nonspecific ground-glass opacities in the upper lobe new may be due to pulmonary vascular congestion. moderately cardiomegaly. No evidence of bowel obstruction. Moderately to markedly enlarged prostate. nonobstructing calculus at mid to lower pole left kidney. Gallstone without evidence of cholecystitis. Scattered diverticulosis without evidence of diverticulitis * 08/14: Patient is not obstructed per review CT scan * 08/19: He is moving his bowels as of 08/19/17 but the Senokot was placed on hold has the movements have been very soft Status: Chronic (11) Anemia Assessment and Plan: * Heme-oncology (Dr. Giles bender) on board-->help appreciated * Likely iron deficiency anemia based on prior admissions * Ferritin 27.4, Iron 22, TIBC 322, % Saturation 7 * Ferric Sodium Gluconate 125mg IVPB daily (active 08/08-08/16) * Procrit 10,000 units M-W- * Monitor Hgb/Hct: stable Status: Chronic (12) History of DVT (deep vein thrombosis) Assessment and Plan: * Patient was previously on Eliquis for a prior history of DVT. * Repeat dopplers 08/09/17 are negative for DVT * Off Heparin Drip 08/17/17 Status: Acute (13) UTI * Infectious disease (Dr. Lawrence) on board-->help appreciated * Exchange jaquez out and repeat urine cultures * Urine Culture 08/12/17 showed Gram Negative Rods: NO identification and NO sensitivities were performed * Meropenem 500mg IV Q 12hours (active since 08/14/17) to cover for UTI per ID * Repeat Urine Culture 08/18/17 shows NO growth (14) Confusion; Alzheimer's Dementia Assessment and Plan: * Per daughter, patient has been getting bouts of confusion over the past year but appears at baseline. Patient has not seen formal neurology as outpatient per daughter. Per , prior to event, noted Alzheimers' disease dx one year ago * CT head w/o contrast (08/10/17):acute os subacute lacune infarct is not excluded in the left basal ganglia inferiorly with definitive chronic lacune identified in the right basal ganglia superiorly. No acute or subacute lobar brain infarction is appreciable by standard CT criteria. Mild age-related neuro degenerative changes are identifed. No acute intracranial hemorrhage or mass is identified throughout * 08/11: Patient gets agitated and will fight to pull the intubation tube out per nursing. Was placed on sedation and Ativan PRN * 08/12: patient is responsive to questions, able to move all extremities, off sedation. Patient is on PRN Versed and Ativan PRN. Will respond to yes and no questions * 08/13: Back on sedation since reintubation; patient is moving all extremities * 08/18: Versed 2 mg IV Q4H PRN Anxiety (15) Prophylactic measure Assessment and Plan: * Pepcid 20mg PO daily * Lovenox 30 mg SC 1x/day * Glucerna 1.5 at 40 ml/hour via NGT * Bacid 1 cap NGT 2x/day * Atrovent Q6H PRN * Tylenol 650 mg PO Q6H PRN Temperature * Albumin 25% 12.5 gm IV Q2H x 3 doses on 08/18/17 and 08/19/17 Cullen Barth D.O. Objective - Vital Signs/Intake and Output Vital Signs (last 24 hours): Temp Pulse Resp BP Pulse Ox 98.8 F 91 H 27 H 154/45 H 98 08/19/17 15:29 08/19/17 16:00 08/19/17 16:00 08/19/17 15:52 08/19/17 16:00 Intake and Output: 08/19/17 08/19/17 06:59 18:59 Intake Total 912.2 672.6 Output Total 175 101 Balance 737.2 571.6 - Medications Medications: Current Medications Acetaminophen (Tylenol 650mg/20.3ml Solution Ud) 650 mg PO Q6 PRN PRN Reason: Temperature Last Admin: 08/19/17 12:11 Dose: 650 mg Albuterol/Ipratropium (Duoneb 3 Mg/0.5 Mg (3 Ml) Ud) 3 ml INH RQ4 [facility] Last Admin: 08/19/17 16:01 Dose: 3 ml Aspirin (Aspirin Chewable) 81 mg PO DAILY [facility] Last Admin: 08/19/17 10:08 Dose: Not Given Enoxaparin Sodium (Lovenox) 30 mg SC DAILY [facility] Last Admin: 08/19/17 10:08 Dose: Not Given Epoetin Chencho (Procrit) 10,000 unit IV MWF [facility] Last Admin: 08/17/17 18:23 Dose: Not Given Famotidine (Pepcid) 20 mg PO DAILY [facility] Last Admin: 08/19/17 10:08 Dose: Not Given Propofol (Diprivan) 1,000 mg in 100 mls @ 2.844 mls/hr IV .Q24H PRN; Protocol; 5 MCG/KG/MIN PRN Reason: TITRATE PER MD ORDER Last Titration: 08/19/17 15:37 Dose: 0 mcg/kg/min, 0 mls/hr Vancomycin HCl 1,500 mg/ (Sodium Chloride) 500 mls @ 250 mls/hr IVPB ONCE ONE Stop: 08/19/17 19:59 Cefepime HCl 1 gm/ Dextrose 50 mls @ 100 mls/hr IVPB Q24H [facility] Last Admin: 08/19/17 12:48 Dose: 100 mls/hr Dobutamine HCl/Dextrose (Dobutamine/Dextrose 5% 500mg/250ml) 500 mg in 250 mls @ 7.02 mls/hr IV .Q24H LUIS FERNANDO; 2.5 MCG/KG/MIN PRN Reason: Protocol Last Admin: 08/19/17 12:11 Dose: 2.5 mcg/kg/min, 7.02 mls/hr Insulin Aspart (Novolog) 0 unit SC Q6 LUIS FERNANDO PRN Reason: Protocol Insulin Detemir (Levemir) 10 unit SC Q12H [facility] Last Admin: 08/19/17 12:10 Dose: 10 unit Ipratropium Catano (Atrovent) 0.5 mg IH RQ6 PRN PRN Reason: Shortness of Breath Last Admin: 08/15/17 08:07 Dose: 0.5 mg Lactobacillus Acidophilus (Bacid Acidophilus) 1 cap PO BID [facility] Last Admin: 08/19/17 10:08 Dose: Not Given Metoprolol Succinate (Toprol Xl) 50 mg PO DAILY [facility] Last Admin: 08/19/17 10:07 Dose: 50 mg Midazolam HCl (Versed Inj) 2 mg IVP Q3H PRN PRN Reason: Agitation Last Admin: 08/19/17 17:08 Dose: 2 mg Rosuvastatin Calcium (Crestor) 10 mg PO HS [facility] Last Admin: 08/18/17 22:36 Dose: 10 mg - Labs Labs: 08/19/17 06:26 08/19/17 06:26 PT 13.0 SECONDS (9.7-12.2) H 08/09/17 23:23 INR 1.2 08/09/17 23:23 APTT 55 SECONDS (21-34) H D 08/17/17 06:12
--- NOTE | 2017-08-19 18:27 | PCM.PROC ---
Procedures Attestation:: I certify that I have explained the specified Operation(s) or Procedure(s), risks, benefits and reasonable alternatives to the Patient and/or other person responsible. The opportunity was given to ask questions and all questions answered - Chest Tube Chest Tube Location: Posterior Chest Right Chest Tube Procedure: Chlorhexidine Tube Sutured to Skin: Yes Sterile Dressing Applied: Yes Anesthesia: Lidocaine 1% Volume Anesthetic (mls): 10 Incision Made With: #10 blade Post Procedure: sutured to skin, sterile dressing applied Irvin of Air Gregory: Yes Tube Drainage: fluid (serosanguinous) Amount of Initial Drainage: 120 Post Procedure CXR?: Yes Patient Tolerated Procedure: Yes Complications: other (none)
[2017-08-19] MEDS: EPOETIN ALFA 10,000 UNIT/ML ML IV SCH (18:36)
[2017-08-19 19:07] LABS: BODY FLUID TYPE PLEURAL
[2017-08-19 19:55] LABS: BF GROSS APPEARANCE CLOUDY (CLEAR)
[2017-08-20] MEDS: Insulin Detemir 100 units/ml Vial (Levemir) SC SCH ×3 (00:11→20:21)
[2017-08-20] MEDS: (Novolog) Insulin Aspart, Recombinant 100 u/ml 10 ml vial SC SCH ×4 (00:12→18:11)
[2017-08-20] MEDS: Albuterol-Ipratrop 3 mg / 0.5 (3 ml) UD INH SCH ×7 (00:17→20:14)
[2017-08-20 05:58] LABS: ABG ALLEN TEST POS; ABG MECHANICAL RATE 14; ARTERIAL BLOOD GAS MODE PRVC; ARTERIAL BLOOD HGB O2 SAT 95.5 % (95.0-98.0); ATERIAL BLOOD GAS PEEP 14; CARBOXYHEMOGLOBIN 2.5 % (0.5-1.5); DRAW SITE RR; HHB 0.5 % (0.0-5.0); METHEMOGLOBIN 1.5 % (0.0-3.0)
[2017-08-20 06:52] LABS: HEMATOCRIT 26.8 % (35.0-51.0); MEAN CELL VOLUME 74.2 fL (80.0-94.0); MEAN CORPUSCULAR HEMOGLOBIN 23.2 pg (27.0-31.0); MEAN CORPUSCULAR HGB CONC 31.2 g/dL (33.0-37.0); MEAN PLATELET VOLUME 9.3 fL (7.2-11.7); WHITE BLOOD COUNT 18.1 K/uL (4.8-10.8)
[2017-08-20 07:07] LABS: ALB/GLOB RATIO 1.4 (1.0-2.1); BILIRUBIN,TOTAL 1.3 mg/dL (0.2-1.3); CALCIUM 8.6 mg/dl (8.6-10.4); MAGNESIUM 2.8 mg/dL (1.6-2.3); PHOSPHOROUS 7.7 mg/dL (2.5-4.5); POTASSIUM 4.8 mmol/L (3.6-5.2); TOTAL PROTEIN 6.2 g/dL (6.3-8.3)
--- NOTE | 2017-08-20 08:18 | CP.PCM.PN ---
Subjective - Date & Time of Evaluation Date of Evaluation: 08/20/17 Time of Evaluation: 08:00 - Subjective Subjective: Hospitalist Progress Note Patient was seen and examined at 8:00 AM 08/20/17 ICU Bed #5. 77 year old male with extensive medical history (please see Assessment and Plans below) was admitted on 08/06/17 for evaluation of SOB and Chest Pain. He was planned for Cardiac Catheterization on 08/09/17 due to his elevated Cr. Patient then had Acute Respiratory Failure and had to be intubated and placed on vent. Please see details below. ROS are not possible as patient is currently intubated/on ventilator. Exam: - Head Exam Head Exam: NORMAL INSPECTION - Eye Exam Eye Exam: could not evaluate EOM due to patient's current status Pupil Exam: round, equal, and reactive to light - Respiratory Exam Respiratory Exam: Decreased Breath Sounds however they are clearer today than before Additional comments: intubated on vent - Cardiovascular Exam Cardiovascular Exam: REGULAR RHYTHM, +S1, +S2 - GI/Abdominal Exam GI & Abdominal Exam: Distended, Soft, Normal Bowel Sounds, could not palpate liver and spleen. absent: Firm, Guarding, Rigid, Tenderness, Rebound Additional comments: obese habitus - Extremities Exam Extremities Exam: Normal Capillary Refill, Pedal Edema. absent: Tenderness Additional comments: Prevalon boots b/l - Neurological Exam Additional comments: sedated - Skin Skin Exam: Dry, Normal Color, Warm Assessment and Plan - Assessment and Plan (Free Text) Assessment: (1) Acute Respiratory Failure ARDS Cardiac Arrest Pulmonary Edema NONSTEMI Assessment and Plan: * Code Blue on 08/10: asystole, cardiopulmonary resuscitative measures initiated , requiring 3 epis, bicarbonate, ROSC achieved and intubated and brought to the ICU for further management * 08/10: Central line placed by ICU; placed on tridil drip; heparin drip c/w * 08/11: Patient placed on Lasix IV. On heparin drip. No plans for cardiac cath at time time. Chest Xray (08/11/17): NG tube extending into the stomach. Endotracheal tube extending into the mild thoracic trachea. Left sided pacemaker. multiple overlying external wires and tubing, Moderate severe venous congestion with prominent confluent airspace opacities in the mid to lower lung zones with associated small to moderate bilateral pleural effusions. scattered nodular densities in both lungs. Cardiomegaly. Degenerative changes in the spine and shoulders. * 08/12: Chest xray (08/12/17): right basilar opacity. Small right pleural effusion. Lines and tubes unchanged.-->C/w Lasix. Discussed with Dr. Mena (pulm) , recommended for CT Chest w/o contrast for possible ARDS. increased peep 10 * 08/13: pending chest /abdomen xray for this morning; self-extubated and reintubated overnight; off tridil drip secondary to hypotension post intubation ; on heparin drip * CT Chest/Abdomen/Pelvis (08/13): moderate to large bilateral pleural effusions largeer on thr right associated with atelectasis at lower lobes. Nonspecific ground-glass opacities in the upper lobe new may be due to pulmonary vascular congestion. moderately cardiomegaly. No evidence of bowel obstruction. Moderately to markedly enlarged prostate. nonobstructing calculus at mid to lower pole left kidney. Gallstone without evidence of cholecystitis. Scattered diverticulosis without evidence of diverticulitis * Repeat CT Chest 08/18 showed moderate Bilateral Pleural Effusion associated with compressive consolidations. I spoke with Cardiothoracic Surgeon Dr. Lopez and he recommended bilateral pigtail catheters. ICU Team placed Right Chest Pigtail Catheter 08/19 and as only small amount of fluid was produced, Left Chest Pigtail Catheter was not placed. Pleural Fluid studies (Total Protein, LDH , Glucose, Cell count with diff, Gram Stain and Culture, pH) have been ordered . * Patient was planned for Tracheostomy 08/19/17 however due to his PEEP of 14 this is currently on hold (2) Chest pain Assessment and Plan: * Cardiology (Dr. Cortés) on board-->help appreciated * All trops WNL; Troponin positive in light of CPR * EKG x2 = Sinus tachycardia notes with possible left atrial enlargement; no apparent T segment elevations in contiguous leads * Patient was Heparin Drip but this was discontinued 08/17/17 * Patient's cardiac catherization cancelled secondary to rise in creatinine (2.3 ) on 08/09/17. * Patient has hx of abnormal stress test. Discussed with cardiology and nephrology given change in Cr on 08/09. * Echocardiogram (08/08/17): left ventricle systolic function is severely impaired. EF: 25-30%; global hypokinesis of left ventricle mild aortic regurgitation. Mitral regurgitation is moderate. Moderate-severe pulmonary hypertesnion * Hx of ACID * Aspirin 81mg PO daily * Plavix 75mg PO daily * Crestor 10mg POqHS * Metoprolol Succinate 50 mg PO 1x/day was placed on Hold 08/17/17 * Off Arb secondary to ARF * TSH: 1.16; T4: 1.53 (3) Acute Systolic CHF exacerbation Assessment and Plan: * Cardiology Dr. Cortés is following * Transferred to the ICU on 08/10 following cardiac arrest and intubation. * Echocardiogram (08/08/17): left ventricular systolic function is severely impaired. EF: 25-30%; global hypokinesis of left ventricle mild aortic regurgitation. Mitral regurgitation is moderate. Moderate-severe pulmonary hypertension * Height of bed at 45 degrees, Strict ins and outs, monitor daily weights * Aspirin 81mg PO daily * Plavix 75mg PO daily * Crestor 10mg POqHS * Metoprolol Succinate 50mg PO 1x/day was placed on Hold 08/17/17 * Off Arb secondary to ARF * Has been receiving HD 08/16/17 and 08/19/17 to help reduce the pulmonary congestion * Started on Dobutamine 2.5 mcg/kg/min 08/19/17 Status: Acute (4) Pneumonia Assessment and Plan: * Pulmonary (Dr. Mena) on board-->help appreciated * Infectious Disease (Dr. Lawrence)-->help appreciated * Rapid A strep, Influenza A and B studies, Urine Legionella, Mycoplasma studies = Negative * Florastor 250mg PO bid * +Strep Pneumoniae in the urine * 08/12: Will repeat urine studies and exchange out the jaquez * Meropenem 500mg IV Q 8 hours ( 08/14/17 through 08/18/17) and Zosyn 2.25 mg IV Q6H (08/13/17 through 08/18/17) * 08/18: Chest X Ray shows scattered dense confluent pathcy areas of consolidative change seen throughout both lungs most prominent in left lung and right lung base * Cefepime 1 gm IV A24H (08/19/17) Status: Acute (5) CAD (coronary artery disease) Assessment and Plan: * Hx of cardiac stent in the past * Cardiac cath on hold given events on 08/10 Status: Acute (6) HTN (hypertension) Assessment and Plan: * Metoprolol XL 50 mg PO 1x/day Status: Chronic (7) CKD (chronic kidney disease) Assessment and Plan: * Dr. Miranda (nephrology) consulted on the case * Hx of CKD * GFR 45 which appears to be around baseline * Stopped ARB given rise in CR * Off IV fluids given pulmonary edema * Monitor in and output: has not been producing significant amount of urine and HD was recommended by Nephrology * Receiving HD through Left Femoral Catheter Status: Acute (8) Diabetes mellitus Assessment and Plan: * Accuchecks Q6H * A1c 8.4 * 08/20: Required 26 units on Aspart ISS from 4 AM 08/19/17 through 4 AM 08/20/17 therefore half of this was added to total Levemir dose. Levemir now is 16 Units SC Q12H * Insulin Aspart ISS Q6H Status: Chronic (9) HLD (hyperlipidemia) Assessment and Plan: * On Crestor 10 mg PO HS Status: Chronic (10) Constipation Assessment and Plan: * Having bowel movements per nursing notes (08/14/17) * Senokot 50/8.6 1 tab PO 2x/day * 08/12: Will given ducolax suppository X1 * 08/13: has not had bowel movement; ordered for abdominal/chest xray in light of abdominal distension * CT Chest/Abdomen/Pelvis (08/13): moderate to large bilateral pleural effusions largeer on thr right associated with atelectasis at lower lobes. Nonspecific ground-glass opacities in the upper lobe new may be due to pulmonary vascular congestion. moderately cardiomegaly. No evidence of bowel obstruction. Moderately to markedly enlarged prostate. nonobstructing calculus at mid to lower pole left kidney. Gallstone without evidence of cholecystitis. Scattered diverticulosis without evidence of diverticulitis * 08/14: Patient is not obstructed per review CT scan * 08/19: He is moving his bowels as of 08/19/17 but the Senokot was placed on hold has the movements have been very soft Status: Chronic (11) Anemia Assessment and Plan: * Heme-oncology (Dr. Giles bender) on board-->help appreciated * Likely iron deficiency anemia based on prior admissions * Ferritin 27.4, Iron 22, TIBC 322, % Saturation 7 * Ferric Sodium Gluconate 125mg IVPB daily (active 08/08-08/16) * Procrit 10,000 units M-W- * Monitor Hgb/Hct: stable Status: Chronic (12) History of DVT (deep vein thrombosis) Assessment and Plan: * Patient was previously on Eliquis for a prior history of DVT. * Repeat dopplers 08/09/17 are negative for DVT * Off Heparin Drip 08/17/17 Status: Acute (13) UTI * Infectious disease (Dr. Lawrence) on board-->help appreciated * Exchange jaquez out and repeat urine cultures * Urine Culture 08/12/17 showed Gram Negative Rods: NO identification and NO sensitivities were performed * Meropenem 500mg IV Q 12hours (active since 08/14/17) to cover for UTI per ID * Repeat Urine Culture 08/18/17 shows NO growth (14) Confusion; Alzheimer's Dementia Assessment and Plan: * Per daughter, patient has been getting bouts of confusion over the past year but appears at baseline. Patient has not seen formal neurology as outpatient per daughter. Per , prior to event, noted Alzheimers' disease dx one year ago * CT head w/o contrast (08/10/17):acute os subacute lacune infarct is not excluded in the left basal ganglia inferiorly with definitive chronic lacune identified in the right basal ganglia superiorly. No acute or subacute lobar brain infarction is appreciable by standard CT criteria. Mild age-related neuro degenerative changes are identifed. No acute intracranial hemorrhage or mass is identified throughout * 08/11: Patient gets agitated and will fight to pull the intubation tube out per nursing. Was placed on sedation and Ativan PRN * 08/12: patient is responsive to questions, able to move all extremities, off sedation. Patient is on PRN Versed and Ativan PRN. Will respond to yes and no questions * 08/13: Back on sedation since reintubation; patient is moving all extremities * 08/18: Versed 2 mg IV Q3H PRN Anxiety (15) Prophylactic measure Assessment and Plan: * Pepcid 20mg PO daily * Lovenox 30 mg SC 1x/day * Glucerna 1.5 at 40 ml/hour via NGT * Bacid 1 cap NGT 2x/day * Atrovent Q6H PRN * Tylenol 650 mg PO Q6H PRN Temperature * Albumin 25% 12.5 gm IV Q2H x 3 doses on 08/18/17 and 08/19/17 Cullen Barth D.O. Objective - Vital Signs/Intake and Output Vital Signs (last 24 hours): Temp Pulse Resp BP Pulse Ox 99.4 F 103 H 26 H 153/53 H 98 08/20/17 04:00 08/20/17 07:16 08/20/17 07:16 08/20/17 07:16 08/20/17 07:16 Intake and Output: 08/20/17 08/20/17 06:59 18:59 Intake Total 814 47 Output Total 95 Balance 719 47 - Medications Medications: Current Medications Acetaminophen (Tylenol 650mg/20.3ml Solution Ud) 650 mg PO Q6 PRN PRN Reason: Temperature Last Admin: 08/19/17 12:11 Dose: 650 mg Albuterol/Ipratropium (Duoneb 3 Mg/0.5 Mg (3 Ml) Ud) 3 ml INH RQ4 [facility] Last Admin: 08/20/17 03:15 Dose: 3 ml Aspirin (Aspirin Chewable) 81 mg PO DAILY [facility] Last Admin: 08/19/17 10:08 Dose: Not Given Enoxaparin Sodium (Lovenox) 30 mg SC DAILY [facility] Last Admin: 08/19/17 10:08 Dose: Not Given Epoetin [place] (Procrit) 10,000 unit IV MWF [facility] Last Admin: 08/19/17 18:36 Dose: 10,000 unit Famotidine (Pepcid) 20 mg PO DAILY [facility] Last Admin: 08/19/17 10:08 Dose: Not Given Cefepime HCl 1 gm/ Dextrose 50 mls @ 100 mls/hr IVPB Q24H [facility] Last Admin: 08/19/17 12:48 Dose: 100 mls/hr Dobutamine HCl/Dextrose (Dobutamine/Dextrose 5% 500mg/250ml) 500 mg in 250 mls @ 7.02 mls/hr IV .Q24H [facility]; 2.5 MCG/KG/MIN PRN Reason: Protocol Last Admin: 08/19/17 12:11 Dose: 2.5 mcg/kg/min, 7.02 mls/hr Insulin Aspart (Novolog) 0 unit SC Q6 [facility] PRN Reason: Protocol Last Admin: 08/20/17 06:40 Dose: 8 unit Insulin Detemir (Levemir) 10 unit SC Q12H [facility] Last Admin: 08/20/17 00:11 Dose: 10 unit Ipratropium [place] (Atrovent) 0.5 mg IH RQ6 PRN PRN Reason: Shortness of Breath Last Admin: 08/15/17 08:07 Dose: 0.5 mg Lactobacillus Acidophilus (Bacid Acidophilus) 1 cap PO BID [facility] Last Admin: 08/19/17 17:18 Dose: 1 cap Metoprolol Succinate (Toprol Xl) 50 mg PO DAILY [facility] Last Admin: 08/19/17 10:07 Dose: 50 mg Midazolam HCl (Versed Inj) 2 mg IVP Q3H PRN PRN Reason: Agitation Last Admin: 08/19/17 23:16 Dose: 2 mg Rosuvastatin Calcium (Crestor) 10 mg PO HS [facility] Last Admin: 08/19/17 22:15 Dose: 10 mg - Labs Labs: 08/20/17 06:44 08/20/17 06:44 PT 13.0 SECONDS (9.7-12.2) H 08/09/17 23:23 INR 1.2 08/09/17 23:23 APTT 55 SECONDS (21-34) H D 08/17/17 06:12
--- NOTE | 2017-08-20 08:44 | RAD ---
Chest x-ray single frontal view History: Intubated. Comparison: 08/19/2017 Findings: Lines and tubes stable position. Biapical pleural thickening with upper lobe granulomatous changes. Moderate venous congestion with patchy bibasilar airspace opacities. Right hilar prominence. Cardiomegaly. Left-sided pacemaker. Degenerative changes in the spine and shoulders. Impression: Improved aeration in the right lung with improving left pleural effusion. Additional persistent findings as above.
--- NOTE | 2017-08-20 08:51 | CP.PCM.PN ---
Subjective - Date & Time of Evaluation Date of Evaluation: 08/20/17 Time of Evaluation: 08:50 - Subjective Subjective: output about 400cc afebrile remains intubated appears comfortable follows no commands and answers no questions ROS unable to obtain ,not answering questions Objective - Vital Signs/Intake and Output Vital Signs (last 24 hours): Temp Pulse Resp BP Pulse Ox 98.7 F 103 H 26 H 153/53 H 98 08/20/17 08:00 08/20/17 07:16 08/20/17 07:16 08/20/17 07:16 08/20/17 07:16 Intake and Output: 08/20/17 08/20/17 06:59 18:59 Intake Total 814 47 Output Total 95 Balance 719 47 - Medications Medications: Current Medications Acetaminophen (Tylenol 650mg/20.3ml Solution Ud) 650 mg PO Q6 PRN PRN Reason: Temperature Last Admin: 08/19/17 12:11 Dose: 650 mg Albuterol/Ipratropium (Duoneb 3 Mg/0.5 Mg (3 Ml) Ud) 3 ml INH RQ4 [facility] Last Admin: 08/20/17 08:22 Dose: 3 ml Aspirin (Aspirin Chewable) 81 mg PO DAILY [facility] Last Admin: 08/19/17 10:08 Dose: Not Given Enoxaparin Sodium (Lovenox) 30 mg SC DAILY [facility] Last Admin: 08/19/17 10:08 Dose: Not Given Epoetin [place] (Procrit) 10,000 unit IV MWF [facility] Last Admin: 08/19/17 18:36 Dose: 10,000 unit Famotidine (Pepcid) 20 mg PO DAILY [facility] Last Admin: 08/19/17 10:08 Dose: Not Given Cefepime HCl 1 gm/ Dextrose 50 mls @ 100 mls/hr IVPB Q24H [facility] Last Admin: 08/19/17 12:48 Dose: 100 mls/hr Dobutamine HCl/Dextrose (Dobutamine/Dextrose 5% 500mg/250ml) 500 mg in 250 mls @ 7.02 mls/hr IV .Q24H [facility]; 2.5 MCG/KG/MIN PRN Reason: Protocol Last Admin: 08/19/17 12:11 Dose: 2.5 mcg/kg/min, 7.02 mls/hr Insulin Aspart (Novolog) 0 unit SC Q6 [facility] PRN Reason: Protocol Last Admin: 08/20/17 06:40 Dose: 8 unit Insulin Detemir (Levemir) 16 unit SC Q12H [facility] Ipratropium [place] (Atrovent) 0.5 mg IH RQ6 PRN PRN Reason: Shortness of Breath Last Admin: 08/15/17 08:07 Dose: 0.5 mg Lactobacillus Acidophilus (Bacid Acidophilus) 1 cap PO BID [facility] Last Admin: 08/19/17 17:18 Dose: 1 cap Metoprolol Succinate (Toprol Xl) 50 mg PO DAILY [facility] Last Admin: 08/19/17 10:07 Dose: 50 mg Midazolam HCl (Versed Inj) 2 mg IVP Q3H PRN PRN Reason: Agitation Last Admin: 08/19/17 23:16 Dose: 2 mg Rosuvastatin Calcium (Crestor) 10 mg PO HS [facility] Last Admin: 08/19/17 22:15 Dose: 10 mg - Labs Labs: 08/20/17 06:44 08/20/17 06:44 PT 13.0 SECONDS (9.7-12.2) H 08/09/17 23:23 INR 1.2 08/09/17 23:23 APTT 55 SECONDS (21-34) H D 08/17/17 06:12 - Constitutional Appears: No Acute Distress - Head Exam Additional comments: intubated - ENT Exam ENT Exam: Mucous Membranes Dry - Respiratory Exam Respiratory Exam: Clear to Ausculation Bilateral - Cardiovascular Exam Cardiovascular Exam: REGULAR RHYTHM Additional comments: chest tube in place - GI/Abdominal Exam GI & Abdominal Exam: Distended, Soft. absent: Tenderness - Exam Additional comments: jaquez in place - Extremities Exam Extremities Exam: absent: Calf Tenderness - Skin Skin Exam: Dry Assessment and Plan (1) Acute on chronic renal failure Status: Acute (2) CHF (congestive heart failure) Status: Acute (3) Cardiorenal disease Status: Acute (4) Type 2 diabetes mellitus with diabetic nephropathy Status: Acute (5) CAD (coronary artery disease) Status: Acute (6) HTN (hypertension) Status: Chronic - Assessment and Plan (Free Text) Plan: schedule dialysis again today with ultrafiltration
[2017-08-20] MEDS: Lactobacillus Acidophilus 500 MU Cap PO SCH ×2 (10:01→18:00)
[2017-08-20] MEDS: Enoxaparin 30 mg Syringe SC SCH (10:08)
[2017-08-20] MEDS: Metoprolol Succinate 50 mg XL Tab PO SCH (11:19)
[2017-08-20] MEDS: DOBUTamine 500mg/250ml D5W 500 MG/250 ML BAG IV SCH (12:44)
[2017-08-20] MEDS: Midazolam 2 MG/2 ML VIAL IVP PRN (22:00)
[2017-08-21] MEDS: (Novolog) Insulin Aspart, Recombinant 100 u/ml 10 ml vial SC SCH ×4 (00:14→18:05)
[2017-08-21] MEDS: Albuterol-Ipratrop 3 mg / 0.5 (3 ml) UD INH SCH ×6 (01:20→19:49)
[2017-08-21] MEDS: Midazolam 2 MG/2 ML VIAL IVP PRN ×4 (01:21→23:00)
[2017-08-21] MEDS: DOBUTamine 500mg/250ml D5W 500 MG/250 ML BAG IV SCH ×2 (02:14→12:12)
[2017-08-21 05:12] LABS: ABG ALLEN TEST POS; ABG MECHANICAL RATE 14; ARTERIAL BLOOD GAS MODE A/C; ARTERIAL BLOOD HGB O2 SAT 95.5 % (95.0-98.0); ATERIAL BLOOD GAS PEEP 10; CARBOXYHEMOGLOBIN 2.3 % (0.5-1.5); DRAW SITE RRADIAL; HHB 1.4 % (0.0-5.0); METHEMOGLOBIN 0.8 % (0.0-3.0)
[2017-08-21 06:07] LABS: BASO # 0.1 K/uL (0.0-0.2); BASO % 0.8 % (0.0-2.0); EOS # 0.7 K/uL (0.0-0.7); EOS % 4.1 % (0.0-4.0); HEMATOCRIT 27.7 % (35.0-51.0); LYMPH % 5.7 % (20.0-40.0); MEAN CELL VOLUME 74.1 fL (80.0-94.0); MEAN CORPUSCULAR HEMOGLOBIN 23.4 pg (27.0-31.0); MEAN CORPUSCULAR HGB CONC 31.5 g/dL (33.0-37.0); MEAN PLATELET VOLUME 9.1 fL (7.2-11.7); MONO # 0.9 K/uL (0.0-0.8); MONO % 5.1 % (0.0-10.0); NRBC % 0.1 % (0.0-2.0); PLATELET COUNT 384 K/uL (130-400); RED CELL DISTRIBUTION WIDTH 22.6 % (11.5-14.5); WHITE BLOOD COUNT 18.4 K/uL (4.8-10.8)
[2017-08-21 06:20] LABS: BILIRUBIN,TOTAL 0.9 mg/dL (0.2-1.3); CALCIUM 8.8 mg/dl (8.6-10.4); MAGNESIUM 2.9 mg/dL (1.6-2.3); POTASSIUM 4.9 mmol/L (3.6-5.2); TOTAL PROTEIN 6.6 g/dL (6.3-8.3)
[2017-08-21 06:25] LABS: ALB/GLOB RATIO 1.1 (1.0-2.1)
--- NOTE | 2017-08-21 07:24 | CP.PCM.PN ---
Subjective - Date & Time of Evaluation Date of Evaluation: 08/20/17 Time of Evaluation: 15:25 - Subjective Subjective: THORACIC SURGERY PROGRESS NOTE FOR DR. LOPEZ GENERAL SURGERY PROGRESS NOTE FOR DR. MUÑOZ Patient seen and examined at bedside in the ICU. He remains intubated. OG tube in place with tube feeds. Right pigtail catheter in place on suction. Patient follows commands. On Dobtamine. Vent settings: PEEP still at 14, FiO2 60%, RR 14 , TV 450 Objective - Vital Signs/Intake and Output Vital Signs (last 24 hours): Temp Pulse Resp BP Pulse Ox 99.3 F 94 H 29 H 125/49 L 98 08/21/17 04:00 08/21/17 07:00 08/21/17 07:00 08/21/17 06:49 08/21/17 07:00 Intake and Output: 08/21/17 08/21/17 06:59 18:59 Intake Total 679.8 40 Output Total 140 20 Balance 539.8 20 - Medications Medications: Current Medications Acetaminophen (Tylenol 650mg/20.3ml Solution Ud) 650 mg PO Q6 PRN PRN Reason: Temperature Last Admin: 08/19/17 12:11 Dose: 650 mg Albuterol/Ipratropium (Duoneb 3 Mg/0.5 Mg (3 Ml) Ud) 3 ml INH RQ4 [facility] Last Admin: 08/21/17 03:50 Dose: 3 ml Aspirin (Aspirin Chewable) 81 mg PO DAILY [facility] [place] Last Admin: 08/20/17 10:00 Dose: 81 mg Enoxaparin Sodium (Lovenox) 30 mg SC DAILY [facility] [place] Last Admin: 08/20/17 10:08 Dose: 30 mg Epoetin [place] (Procrit) 10,000 unit IV MWF [facility] [place] Last Admin: 08/19/17 18:36 Dose: 10,000 unit Famotidine (Pepcid) 20 mg PO DAILY [facility] [place] Last Admin: 08/20/17 10:01 Dose: 20 mg Cefepime HCl 1 gm/ Dextrose 50 mls @ 100 mls/hr IVPB Q24H [facility] [place] Last Admin: 08/20/17 12:57 Dose: 100 mls/hr Dobutamine HCl/Dextrose (Dobutamine/Dextrose 5% 500mg/250ml) 500 mg in 250 mls @ 7.02 mls/hr IV .Q24H [facility] [place]; 2.5 MCG/KG/MIN PRN Reason: Protocol Last Admin: 08/21/17 02:14 Dose: 1.78 mcg/kg/min, 5 mls/hr Insulin Aspart (Novolog) 0 unit SC Q6 [facility] PRN Reason: Protocol Last Admin: 08/21/17 06:03 Dose: 6 unit Insulin Detemir (Levemir) 16 unit SC Q12H [facility] Last Admin: 08/20/17 20:21 Dose: 16 unit Lactobacillus Acidophilus (Bacid Acidophilus) 1 cap PO BID [facility] Last Admin: 08/20/17 18:00 Dose: 1 cap Metoprolol Tartrate (Lopressor) 25 mg PO BID [facility] Last Admin: 08/20/17 18:00 Dose: 25 mg Midazolam HCl (Versed Inj) 2 mg IVP Q3H PRN PRN Reason: Agitation Last Admin: 08/21/17 01:21 Dose: 2 mg Rosuvastatin Calcium (Crestor) 10 mg PO HS [facility] Last Admin: 08/20/17 21:41 Dose: 10 mg - Labs Labs: 08/21/17 06:02 08/21/17 06:02 PT 13.0 SECONDS (9.7-12.2) H 08/09/17 23:23 INR 1.2 08/09/17 23:23 APTT 55 SECONDS (21-34) H D 08/17/17 06:12 - Constitutional Appears: Non-toxic, No Acute Distress - Respiratory Exam Respiratory Exam: NORMAL BREATHING PATTERN (on mechanical ventilation). absent : Respiratory Distress Additional comments: Right pigtail catheter in place on suction with 660cc output since insertion yesterday - Cardiovascular Exam Cardiovascular Exam: +S1, +S2 Assessment and Plan - Assessment and Plan (Free Text) Assessment: 77yo M with ARDS and bilateral pleural effusions General surgery Dr. Muñoz consult for Trach: - patient still on PEEP of 14 - Will do trach Tuesday if PEEP decreases - If not, can do trach bedside - Discussed plan with Dr. Muñoz Thoracic surgery Dr. Lopez consult for effusions: - Right Pigtail catheter was placed yesterday by ICU team - Tube remains on suction with 660cc output since insertion yesterday - Daily CXRs - Discussed plan with Dr. Jessica Hahn PGY-3
[2017-08-21] MEDS: Insulin Detemir 100 units/ml Vial (Levemir) SC SCH ×2 (07:42→20:30)
--- NOTE | 2017-08-21 07:56 | CP.PCM.PN ---
Subjective - Date & Time of Evaluation Date of Evaluation: 08/20/17 Time of Evaluation: 07:45 - Subjective Subjective: Patient seen and evaluated Intubated Not in distress at bedside Physical examination - Constitutional Appears: No Acute Distress, Chronically Ill - Head Exam Head Exam: NORMAL INSPECTION - Respiratory Exam Respiratory Exam: Decreased Breath Sounds, NORMAL BREATHING PATTERN - Cardiovascular Exam Cardiovascular Exam: REGULAR RHYTHM, +S1, +S2. absent: Murmur - GI/Abdominal Exam GI & Abdominal Exam: Soft, Normal Bowel Sounds - Extremities Exam Extremities Exam: Full ROM, Normal Capillary Refill, Normal Inspection. absent : Joint Swelling, Pedal Edema - Neurological Exam Neurological Exam: absent: Alert, Awake, Oriented x3 (sedated, intubated) - Psychiatric Exam Additional comments: sedated - Skin Skin Exam: Dry, Normal Color, Warm Objective - Vital Signs/Intake and Output Vital Signs (last 24 hours): Temp Pulse Resp BP Pulse Ox 99.3 F 94 H 29 H 125/49 L 98 08/21/17 04:00 08/21/17 07:00 08/21/17 07:00 08/21/17 06:49 08/21/17 07:00 Intake and Output: 08/21/17 08/21/17 06:59 18:59 Intake Total 679.8 40 Output Total 140 20 Balance 539.8 20 - Medications Medications: Current Medications Acetaminophen (Tylenol 650mg/20.3ml Solution Ud) 650 mg PO Q6 PRN PRN Reason: Temperature Last Admin: 08/19/17 12:11 Dose: 650 mg Albuterol/Ipratropium (Duoneb 3 Mg/0.5 Mg (3 Ml) Ud) 3 ml INH RQ4 [facility] Last Admin: 08/21/17 03:50 Dose: 3 ml Aspirin (Aspirin Chewable) 81 mg PO DAILY [facility] Last Admin: 08/20/17 10:00 Dose: 81 mg Enoxaparin Sodium (Lovenox) 30 mg SC DAILY [facility] Last Admin: 08/20/17 10:08 Dose: 30 mg Epoetin Chencho (Procrit) 10,000 unit IV MWF [facility] Last Admin: 08/19/17 18:36 Dose: 10,000 unit Famotidine (Pepcid) 20 mg PO DAILY [facility] Last Admin: 08/20/17 10:01 Dose: 20 mg Cefepime HCl 1 gm/ Dextrose 50 mls @ 100 mls/hr IVPB Q24H [facility] Last Admin: 08/20/17 12:57 Dose: 100 mls/hr Dobutamine HCl/Dextrose (Dobutamine/Dextrose 5% 500mg/250ml) 500 mg in 250 mls @ 7.02 mls/hr IV .Q24H [facility]; 2.5 MCG/KG/MIN PRN Reason: Protocol Last Admin: 08/21/17 02:14 Dose: 1.78 mcg/kg/min, 5 mls/hr Insulin Aspart (Novolog) 0 unit SC Q6 [facility] PRN Reason: Protocol Last Admin: 08/21/17 06:03 Dose: 6 unit Insulin Detemir (Levemir) 16 unit SC Q12H [facility] Last Admin: 08/21/17 07:42 Dose: 16 unit Lactobacillus Acidophilus (Bacid Acidophilus) 1 cap PO BID [facility] Last Admin: 08/20/17 18:00 Dose: 1 cap Metoprolol Tartrate (Lopressor) 25 mg PO BID [facility] Last Admin: 08/20/17 18:00 Dose: 25 mg Midazolam HCl (Versed Inj) 2 mg IVP Q3H PRN PRN Reason: Agitation Last Admin: 08/21/17 01:21 Dose: 2 mg Rosuvastatin Calcium (Crestor) 10 mg PO HS [facility] Last Admin: 08/20/17 21:41 Dose: 10 mg - Labs Labs: 08/21/17 06:02 08/21/17 06:02 PT 13.0 SECONDS (9.7-12.2) H 08/09/17 23:23 INR 1.2 08/09/17 23:23 APTT 55 SECONDS (21-34) H D 08/17/17 06:12 Assessment and Plan - Assessment and Plan (Free Text) Assessment: (1) Acute Respiratory Failure ARDS Cardiac Arrest Pulmonary Edema NONSTEMI Assessment and Plan: * Code Blue on 08/10: asystole, cardiopulmonary resuscitative measures initiated , requiring 3 epis, bicarbonate, ROSC achieved and intubated and brought to the ICU for further management * 08/10: Central line placed by ICU; placed on tridil drip; heparin drip c/w * 08/11: Patient placed on Lasix IV. On heparin drip. No plans for cardiac cath at time time. Chest Xray (08/11/17): NG tube extending into the stomach. Endotracheal tube extending into the mild thoracic trachea. Left sided pacemaker. multiple overlying external wires and tubing, Moderate severe venous congestion with prominent confluent airspace opacities in the mid to lower lung zones with associated small to moderate bilateral pleural effusions. scattered nodular densities in both lungs. Cardiomegaly. Degenerative changes in the spine and shoulders. * 08/12: Chest xray (08/12/17): right basilar opacity. Small right pleural effusion. Lines and tubes unchanged.-->C/w Lasix. Discussed with Dr. Mena (pulm) , recommended for CT Chest w/o contrast for possible ARDS. increased peep 10 * 08/13: pending chest /abdomen xray for this morning; self-extubated and reintubated overnight; off tridil drip secondary to hypotension post intubation ; on heparin drip * CT Chest/Abdomen/Pelvis (08/13): moderate to large bilateral pleural effusions largeer on thr right associated with atelectasis at lower lobes. Nonspecific ground-glass opacities in the upper lobe new may be due to pulmonary vascular congestion. moderately cardiomegaly. No evidence of bowel obstruction. Moderately to markedly enlarged prostate. nonobstructing calculus at mid to lower pole left kidney. Gallstone without evidence of cholecystitis. Scattered diverticulosis without evidence of diverticulitis * 08/18: I reviewed the CT Chest 08/13 and there is mention of moderate to large effusions bilaterally but no mention of loculated effusion. Repeat CT Chest has been ordered. I also spoke with CardioThoracic Surgeon Dr. Lopez and his team will evaluate patient for any intervention in this regard. * Patient is for Tracheostomy 08/19/17 (2) Chest pain Assessment and Plan: * All trops WNL; Troponin positive in light of CPR * EKG x2 = Sinus tachycardia notes with possible left atrial enlargement; no apparent T segment elevations in contiguous leads * Patient was Heparin Drip but this was discontinued 08/17/17 * Patient's cardiac catherization cancelled secondary to rise in creatinine (2.3 ) on 08/09/17. * Patient has hx of abnormal stress test. Discussed with cardiology and nephrology given change in Cr on 08/09. * Echocardiogram (08/08/17): left ventricle systolic function is severely impaired. EF: 25-30%; global hypokinesis of left ventricle mild aortic regurgitation. Mitral regurgitation is moderate. Moderate-severe pulmonary hypertesnion * Hx of ACID * Aspirin 81mg PO daily * Plavix 75mg PO daily * Crestor 10mg POqHS * Metoprolol Succinate 50 mg PO 1x/day was placed on Hold 08/17/17 * Off Arb secondary to ARF * TSH: 1.16; T4: 1.53 (3) Acute Systolic CHF exacerbation Assessment and Plan: * Transferred to the ICU on 08/10 following cardiac arrest and intubation. * Echocardiogram (08/08/17): left ventrcile systolic function is severely impaired. EF: 25-30%; global hypokinesis of left ventricle mild aortic regurgitation. Mitral regurgitation is moderate. Moderate-severe pulmonary hypertension * Height of bed at 45 degrees, Strict ins and outs, monitor daily weights * Aspirin 81mg PO daily * Plavix 75mg PO daily * Crestor 10mg POqHS * Metoprolol Succinate 50mg PO 1x/day was placed on Hold 08/17/17 * Off Arb secondary to ARF * Has been receiving HD 08/16/17 and 08/18/17 to help reduce the pulmonary congestion Status: Acute (4) Pneumonia Assessment and Plan: * Pulmonary (Dr. Mena) on board-->help appreciated * Infectious Disease (Dr. Lawrence)-->help appreciated * Rapid A strep, Influenza A and B studies, Urine Legionella, Mycoplasma studies = Negative * Florastor 250mg PO bid * +Strep Pneumoniae in the urine * 08/12: Will repeat urine studies and exchange out the jaquez * 08/15: Meropenem 500mg IV Q 8 hours (active since 08/14/17) and Zosyn 2.25 mg IV Q6H (08/13/17) * 08/18: Chest X Ray shows scattered dense confluent pathcy areas of consolidative change seen throughout both lungs most prominent in left lung and right lung base Status: Acute (5) CAD (coronary artery disease) Assessment and Plan: * Hx of cardiac stent in the past * Cardiac cath on hold given events on 08/10 Status: Acute (6) HTN (hypertension) Assessment and Plan: * Metoprolol XL 50 mg PO 1x/day was placed on hold 08/17/17 as patient's blood pressure has been at the low end of normal Status: Chronic (7) CKD (chronic kidney disease) Assessment and Plan: * Dr. Miranda (nephrology) consulted on the case * Hx of CKD * GFR 45 which appears to be around baseline * Stopped ARB given rise in CR * Off IV fluids given pulmonary edema * Monitor in and output: has not been producing significant amount of urine and HD was recommended by Nephrology * Receiving HD through Left Femoral Catheter Status: Acute (8) Diabetes mellitus Assessment and Plan: * Accuchecks Q6H * A1c 8.4 * Lantus 10 units subqHS * Insulin Aspart 6 units subq Q6H Status: Chronic (9) HLD (hyperlipidemia) Assessment and Plan: * On Crestor 10 mg Po HS Status: Chronic (10) Constipation Assessment and Plan: * Having bowel movements per nursing notes (08/14/17) * Senokot 50/8.6 1 tab PO 2x/day * 08/12: Will given ducolax suppository X1 * 08/13: has not had bowel movement; ordered for abdominal/chest xray in light of abdominal distension * CT Chest/Abdomen/Pelvis (08/13): moderate to large bilateral pleural effusions largeer on thr right associated with atelectasis at lower lobes. Nonspecific ground-glass opacities in the upper lobe new may be due to pulmonary vascular congestion. moderately cardiomegaly. No evidence of bowel obstruction. Moderately to markedly enlarged prostate. nonobstructing calculus at mid to lower pole left kidney. Gallstone without evidence of cholecystitis. Scattered diverticulosis without evidence of diverticulitis * 08/14: Patient is not obstructed per review CT scan Status: Chronic (11) Anemia Assessment and Plan: * Heme-oncology (Dr. Giles bender) on board-->help appreciated * Likely iron deficiency anemia based on prior admissions * Ferritin 27.4, Iron 22, TIBC 322, % Saturation 7 * Ferric Sodium Gluconate 125mg IVPB daily (active 08/08-08/16) * Procrit 10,000 units M-W- * Monitor Hgb/Hct: stable Status: Chronic (12) History of DVT (deep vein thrombosis) Assessment and Plan: * Patient was previously on Eliquis for a prior history of DVT. * Repeat dopplers 08/09/17 are negative for DVT * Off Heparin Drip 08/17/17 Status: Acute (13) UTI * Infectious disease (Dr. Lawrence) on board-->help appreciated * Exchange jaquez out and repeat urine cultures * Urine Culture 08/12/17 showed Gram Negative Rods: follow up identification and sensitivities * Meropenem 500mg IV Q 12hours (active since 08/14/17) to cover for UTI per ID * Repeat Urine Culture ordered 08/18/17 (14) Confusion; Alzheimer's Dementia Assessment and Plan: * Per daughter, patient has been getting bouts of confusion over the past year but appears at baseline. Patient has not seen formal neurology as outpatient per daughter. Per , prior to event, noted Alzheimers' disease dx one year ago * CT head w/o contrast (08/10/17):acute os subacute lacune infarct is not excluded in the left basal ganglia inferiorly with definitive chronic lacune identified in the right basal ganglia superiorly. No acute or subacute lobar brain infarction is appreciable by standard CT criteria. Mild age-related neuro degenerative changes are identifed. No acute intracranial hemorrhage or mass is identified throughout * 08/11: Patient gets agitated and will fight to pull the intubation tube out per nursing. Was placed on sedation and Ativan PRN * 08/12: patient is responsive to questions, able to move all extremities, off sedation. Patient is on PRN Versed and Ativan PRN. Will respond to yes and no questions * 08/13: Back on sedation since reintubation; patient is moving all extremities * 08/18: Versed 2 mg IV Q4H PRN Anxiety (15) Prophylactic measure Assessment and Plan: * Pepcid 20mg PO daily * Lovenox 30 mg SC 1x/day * Glucerna 1.5 at 40 ml/hour via NGT * Bacid 1 cap NGT 2x/day * Atrovent Q6H PRN * Tylenol 650 mg PO Q6H PRN Temperature * Albumin 25% 12.5 gm IV Q2H x 3 doses on 08/18/17 and 08/19/17
[2017-08-21 08:05] LABS: EOSINOPHIL 3 % (0-4); NEUTROPHIL 82 % (50-75); TOTAL CELLS COUNTED 100
[2017-08-21 08:06] LABS: LARGE PLATELETS PRESENT
--- NOTE | 2017-08-21 08:22 | RAD ---
Chest x-ray single frontal view History: Follow-up. Comparison: 08/20/2017 Findings: Lines and tubes in stable position. Cardiomegaly. Left-sided pacemaker. Prominent diffuse increased interstitial lung markings bilaterally. Biapical pleural thickening with upper lobe granulomatous changes. Patchy bibasilar airspace opacities ; left greater than right. Small left pleural effusion. Degenerative changes in the spine and shoulders. Impression: Worsening left pleural effusion. Otherwise no significant interval change.
--- NOTE | 2017-08-21 08:44 | CP.CCUPN ---
CCU Subjective - Physician Review Events Since Last Encounter (Free Text): 08/21/17 08:44 Patient admitted to the hospital following your cardiac arrest. Severe systolic heart failure, associate with the decompensated heart failure. Acute respiratory failure. Patient was intubated. Meanwhile patient developed acute renal failure, fluid overload. Receiving hemodialysis. Patient oxygen requirement is high On examination: Vital signs stable. Chest good air entry. Awake and responding Edema noted Chest x-ray showing pleural effusion. Spoke to the surgery team for possible tracheostomy. Assessment and recommendation: 77 male with history of hypertension, hyperlipidemia, congestive heart failure and ACD. Acute respiratory failure cardiac arrest. Status post to CPR. Currently fluid overload, renal insufficiency on dialysis. Overall prognosis is poor. We'll continue the current supportive. Reduced the oxygen requirement as needed. For possible tracheostomy CCU Objective - Vital Signs / Intake & Output Vital Signs (Last 4 hours): Vital Signs Temp Pulse Resp BP Pulse Ox 08/21/17 08:00 99.8 F H 95 H 26 H 97 08/21/17 07:49 94 H 25 H 137/44 L 97 08/21/17 07:00 94 H 29 H 98 08/21/17 06:49 93 H 26 H 125/49 L 99 08/21/17 06:00 93 H 24 99 08/21/17 05:49 95 H 24 115/46 L 99 08/21/17 05:00 124 H 21 97 08/21/17 04:49 131 H 25 H 103/47 L 94 L Intake and Output (Last 8hrs): Intake & Output 08/20/17 08/21/17 08/21/17 22:59 06:59 14:59 Intake Total 581.8 398.0 115.6 Output Total 90 85 25 Balance 491.8 313.0 90.6 Weight 187 lb Intake: IV 200 50 Intake, IV Amount 41.8 28.0 5.6 Right Proximal Port 41.8 28.0 5.6 Oral 30 Tube Feeding 240 320 80 Other 100 Output: Chest Tube Drainage 10 Right Upper Lateral Chest 10 Urine 90 85 15 Urethral (Sanchez) 90 85 15 Other: # Bowel Movements 0 0 0 - Physical Exam Head: Positive for: Atraumatic, Normocephalic Pupils: Positive for: Sluggish Conjunctiva: Positive for: Normal Pharnyx: Positive for: Normal Respiratory/Chest: Positive for: Decreased Breath Sounds, Other (on vent) Cardiovascular: Positive for: Regular Rate and Rhythm, Normal S1, S2 Abdomen: Positive for: Distention, Normal Bowel Sounds, Other (obese habitus) Skin: Positive for: Warm, Dry Psychiatric: Positive for: Other (sedated) - Medications Active Medications: Active Medications Generic Name Dose Route Start Last Admin Trade Name Freq PRN Reason Stop Dose Admin Acetaminophen 650 mg 08/11/17 17:40 08/19/17 12:11 Tylenol 650mg/20.3ml Solution Ud PO 650 mg Q6 PRN Administration Temperature Albuterol/Ipratropium 3 ml 08/18/17 12:00 08/21/17 08:05 Duoneb 3 Mg/0.5 Mg (3 Ml) Ud INH 3 ml RQ4 LUIS FERNANDO Administration Aspirin 81 mg 08/14/17 11:15 08/20/17 10:00 Aspirin Chewable PO 81 mg DAILY LUIS FERNANDO Administration Enoxaparin Sodium 30 mg 08/17/17 10:00 08/20/17 10:08 Lovenox SC 30 mg DAILY LUIS FERNANDO Administration Epoetin Chencho 10,000 unit 08/17/17 14:00 08/19/17 18:36 Procrit IV 10,000 unit MWF LUIS FERNANDO Administration Famotidine 20 mg 08/09/17 10:00 08/20/17 10:01 Pepcid PO 20 mg DAILY LUIS FERNANDO Administration Cefepime HCl 1 gm/ Dextrose 50 mls @ 100 mls/hr 08/19/17 12:00 08/20/17 12:57 IVPB 100 mls/hr Q24H LUIS FERNANDO Administration Dobutamine HCl/Dextrose 500 mg in 250 mls @ 7.02 mls/hr 08/19/17 11:45 02:14 Dobutamine/Dextrose 5% 500mg/250ml IV 1.78 mcg/kg/min .Q24H LUIS FERNANDO 5 mls/hr Protocol Administration 2.5 MCG/KG/MIN Insulin Aspart 0 unit 08/19/17 18:00 08/21/17 06:03 Novolog SC 6 unit Q6 LUIS FERNANDO Administration Protocol Insulin Detemir 16 unit 08/20/17 08:18 08/21/17 07:42 Levemir SC 16 unit Q12H LUIS FERNANDO Administration Lactobacillus Acidophilus 1 cap 08/13/17 18:00 08/20/17 18:00 Bacid Acidophilus PO 1 cap BID LUIS FERNANDO Administration Metoprolol Tartrate 25 mg 08/20/17 11:30 08/20/17 18:00 Lopressor PO 25 mg BID LUIS FERNANDO Administration Midazolam HCl 2 mg 08/19/17 10:59 08/21/17 01:21 Versed Inj IVP 2 mg Q3H PRN Administration Agitation Rosuvastatin Calcium 10 mg 08/06/17 22:00 08/20/17 21:41 Crestor PO 10 mg HS LUIS FERNANDO Administration - Patient Studies Lab Studies: Microbiology Studies 08/19/17 19:00 Gram Stain - Final Pleural Fluid Body Fluid Culture - Preliminary NO GROWTH AFTER 24 HOURS Lab Studies 08/21/17 08/21/17 08/21/17 Range/Units 06:02 06:02 05:56 WBC 18.4 H (4.8-10.8) K/uL RBC 3.74 L (4.40-5.90) Mil/uL Hgb 8.7 L (12.0-18.0) g/dL Hct 27.7 L (35.0-51.0) % MCV 74.1 L (80.0-94.0) fL MCH 23.4 L (27.0-31.0) pg MCHC 31.5 L (33.0-37.0) g/dL RDW 22.6 H (11.5-14.5) % Plt Count 384 (130-400) K/uL MPV 9.1 (7.2-11.7) fL Neut % (Auto) 84.3 H (50.0-75.0) % Lymph % (Auto) 5.7 L (20.0-40.0) % [place] % (Auto) 5.1 (0.0-10.0) % Eos % (Auto) 4.1 H (0.0-4.0) % Baso % (Auto) 0.8 (0.0-2.0) % Neut # 15.5 H (1.8-7.0) K/uL Lymph # 1.0 (1.0-4.3) K/uL [place] # 0.9 H (0.0-0.8) K/uL Eos # 0.7 (0.0-0.7) K/uL Baso # 0.1 (0.0-0.2) K/uL Neutrophils % (Manual) 82 H (50-75) % Band Neutrophils % 2 (0-2) % Lymphocytes % (Manual) 9 L (20-40) % Monocytes % (Manual) 4 (0-10) % Eosinophils % (Manual) 3 (0-4) % Platelet Estimate Normal (NORMAL) Large Platelets Present Hypochromasia (manual) Slight Anisocytosis (manual) Moderate Ovalocytes Slight Puncture Site pCO2 (35-45) mm/Hg pO2 (80-100) mm/Hg HCO3 (21-28) mmol/L ABG pH (7.35-7.45) ABG Total CO2 (22-28) mmol/L ABG O2 Saturation (95-98) % ABG Base Excess (-2.0-3.0) mmol/L ABG Hemoglobin (11.7-17.4) g/dL ABG Carboxyhemoglobin (0.5-1.5) % POC ABG HHb (Measured) (0.0-5.0) % ABG Methemoglobin (0.0-3.0) % Uriel Test A-a O2 Difference mm/Hg Respiratory Index Hgb O2 Saturation (95.0-98.0) % Vent Mode Mechanical Rate FiO2 % Tidal Volume PEEP Sodium 135 (132-148) mmol/L Potassium 4.9 (3.6-5.2) mmol/L Chloride 94 L (98-107) mmol/L Carbon Dioxide 24 (22-30) mmol/L Anion Gap 22 H (10-20) BUN 69 H (9-20) mg/dL Creatinine 4.6 H (0.8-1.5) MG/DL Est GFR ( Amer) 15 Est GFR (Non-Af Amer) 12 POC Glucose (mg/dL) 260 H (65-110) mg/dL Random Glucose 267 H (75-110) mg/dL Calcium 8.8 (8.6-10.4) mg/dl Phosphorus 8.0 H (2.5-4.5) mg/dL Magnesium 2.9 H (1.6-2.3) mg/dL Total Bilirubin 0.9 (0.2-1.3) mg/dL AST 56 (17-59) U/L ALT 66 (21-72) U/L Alkaline Phosphatase 170 H (38-126) U/L Total Protein 6.6 (6.3-8.3) g/dL Albumin 3.4 L (3.5-5.0) g/dL Globulin 3.2 (2.2-3.9) gm/dL Albumin/Globulin Ratio 1.1 (1.0-2.1) 08/21/17 08/21/17 08/20/17 Range/Units 05:00 00:04 17:53 WBC (4.8-10.8) K/uL RBC (4.40-5.90) Mil/uL Hgb (12.0-18.0) g/dL Hct (35.0-51.0) % MCV (80.0-94.0) fL MCH (27.0-31.0) pg MCHC (33.0-37.0) g/dL RDW (11.5-14.5) % Plt Count (130-400) K/uL MPV (7.2-11.7) fL Neut % (Auto) (50.0-75.0) % Lymph % (Auto) (20.0-40.0) % [place] % (Auto) (0.0-10.0) % Eos % (Auto) (0.0-4.0) % Baso % (Auto) (0.0-2.0) % Neut # (1.8-7.0) K/uL Lymph # (1.0-4.3) K/uL [place] # (0.0-0.8) K/uL Eos # (0.0-0.7) K/uL Baso # (0.0-0.2) K/uL Neutrophils % (Manual) (50-75) % Band Neutrophils % (0-2) % Lymphocytes % (Manual) (20-40) % Monocytes % (Manual) (0-10) % Eosinophils % (Manual) (0-4) % Platelet Estimate (NORMAL) Large Platelets Hypochromasia (manual) Anisocytosis (manual) Ovalocytes Puncture Site Rradial pCO2 42 (35-45) mm/Hg pO2 85 (80-100) mm/Hg HCO3 25.8 (21-28) mmol/L ABG pH 7.40 (7.35-7.45) ABG Total CO2 27.3 (22-28) mmol/L ABG O2 Saturation 98.6 H (95-98) % ABG Base Excess 1.1 (-2.0-3.0) mmol/L ABG Hemoglobin 8.8 L (11.7-17.4) g/dL ABG Carboxyhemoglobin 2.3 H (0.5-1.5) % POC ABG HHb (Measured) 1.4 (0.0-5.0) % ABG Methemoglobin 0.8 (0.0-3.0) % Uriel Test Pos A-a O2 Difference 290.0 mm/Hg Respiratory Index 3.4 Hgb O2 Saturation 95.5 (95.0-98.0) % Vent Mode A/c Mechanical Rate 14 FiO2 60.0 % Tidal Volume 450 PEEP 10 Sodium (132-148) mmol/L Potassium (3.6-5.2) mmol/L Chloride (98-107) mmol/L Carbon Dioxide (22-30) mmol/L Anion Gap (10-20) BUN (9-20) mg/dL Creatinine (0.8-1.5) MG/DL Est GFR ( Amer) Est GFR (Non-Af Amer) POC Glucose (mg/dL) 266 H 263 H (65-110) mg/dL Random Glucose (75-110) mg/dL Calcium (8.6-10.4) mg/dl Phosphorus (2.5-4.5) mg/dL Magnesium (1.6-2.3) mg/dL Total Bilirubin (0.2-1.3) mg/dL AST (17-59) U/L ALT (21-72) U/L Alkaline Phosphatase (38-126) U/L Total Protein (6.3-8.3) g/dL Albumin (3.5-5.0) g/dL Globulin (2.2-3.9) gm/dL Albumin/Globulin Ratio (1.0-2.1) 08/20/17 Range/Units 12:42 WBC (4.8-10.8) K/uL RBC (4.40-5.90) Mil/uL Hgb (12.0-18.0) g/dL Hct (35.0-51.0) % MCV (80.0-94.0) fL MCH (27.0-31.0) pg MCHC (33.0-37.0) g/dL RDW (11.5-14.5) % Plt Count (130-400) K/uL MPV (7.2-11.7) fL Neut % (Auto) (50.0-75.0) % Lymph % (Auto) (20.0-40.0) % [place] % (Auto) (0.0-10.0) % Eos % (Auto) (0.0-4.0) % Baso % (Auto) (0.0-2.0) % Neut # (1.8-7.0) K/uL Lymph # (1.0-4.3) K/uL [place] # (0.0-0.8) K/uL Eos # (0.0-0.7) K/uL Baso # (0.0-0.2) K/uL Neutrophils % (Manual) (50-75) % Band Neutrophils % (0-2) % Lymphocytes % (Manual) (20-40) % Monocytes % (Manual) (0-10) % Eosinophils % (Manual) (0-4) % Platelet Estimate (NORMAL) Large Platelets Hypochromasia (manual) Anisocytosis (manual) Ovalocytes Puncture Site pCO2 (35-45) mm/Hg pO2 (80-100) mm/Hg HCO3 (21-28) mmol/L ABG pH (7.35-7.45) ABG Total CO2 (22-28) mmol/L ABG O2 Saturation (95-98) % ABG Base Excess (-2.0-3.0) mmol/L ABG Hemoglobin (11.7-17.4) g/dL ABG Carboxyhemoglobin (0.5-1.5) % POC ABG HHb (Measured) (0.0-5.0) % ABG Methemoglobin (0.0-3.0) % Uriel Test A-a O2 Difference mm/Hg Respiratory Index Hgb O2 Saturation (95.0-98.0) % Vent Mode Mechanical Rate FiO2 % Tidal Volume PEEP Sodium (132-148) mmol/L Potassium (3.6-5.2) mmol/L Chloride (98-107) mmol/L Carbon Dioxide (22-30) mmol/L Anion Gap (10-20) BUN (9-20) mg/dL Creatinine (0.8-1.5) MG/DL Est GFR ( Amer) Est GFR (Non-Af Amer) POC Glucose (mg/dL) 284 H (65-110) mg/dL Random Glucose (75-110) mg/dL Calcium (8.6-10.4) mg/dl Phosphorus (2.5-4.5) mg/dL Magnesium (1.6-2.3) mg/dL Total Bilirubin (0.2-1.3) mg/dL AST (17-59) U/L ALT (21-72) U/L Alkaline Phosphatase (38-126) U/L Total Protein (6.3-8.3) g/dL Albumin (3.5-5.0) g/dL Globulin (2.2-3.9) gm/dL Albumin/Globulin Ratio (1.0-2.1) Laboratory Results - last 24 hr 08/20/17 08/20/17 08/21/17 12:42 17:53 00:04 WBC RBC Hgb Hct MCV MCH MCHC RDW Plt Count MPV Neut % (Auto) Lymph % (Auto) [place] % (Auto) Eos % (Auto) Baso % (Auto) Neut # Lymph # [place] # Eos # Baso # Neutrophils % (Manual) Band Neutrophils % Lymphocytes % (Manual) Monocytes % (Manual) Eosinophils % (Manual) Platelet Estimate Large Platelets Hypochromasia (manual) Anisocytosis (manual) Ovalocytes Puncture Site pCO2 pO2 HCO3 ABG pH ABG Total CO2 ABG O2 Saturation ABG Base Excess ABG Hemoglobin ABG Carboxyhemoglobin POC ABG HHb (Measured) ABG Methemoglobin Uriel Test A-a O2 Difference Respiratory Index Hgb O2 Saturation Vent Mode Mechanical Rate FiO2 Tidal Volume PEEP Sodium Potassium Chloride Carbon Dioxide Anion Gap BUN Creatinine Est GFR ( Amer) Est GFR (Non-Af Amer) POC Glucose (mg/dL) 284 H 263 H 266 H Random Glucose Calcium Phosphorus Magnesium Total Bilirubin AST ALT Alkaline Phosphatase Total Protein Albumin Globulin Albumin/Globulin Ratio 08/21/17 08/21/17 08/21/17 05:00 05:56 06:02 WBC 18.4 H RBC 3.74 L Hgb 8.7 L Hct 27.7 L MCV 74.1 L MCH 23.4 L MCHC 31.5 L RDW 22.6 H Plt Count 384 MPV 9.1 Neut % (Auto) 84.3 H Lymph % (Auto) 5.7 L [place] % (Auto) 5.1 Eos % (Auto) 4.1 H Baso % (Auto) 0.8 Neut # 15.5 H Lymph # 1.0 [place] # 0.9 H Eos # 0.7 Baso # 0.1 Neutrophils % (Manual) 82 H Band Neutrophils % 2 Lymphocytes % (Manual) 9 L Monocytes % (Manual) 4 Eosinophils % (Manual) 3 Platelet Estimate Normal Large Platelets Present Hypochromasia (manual) Slight Anisocytosis (manual) Moderate Ovalocytes Slight Puncture Site Rradial pCO2 42 pO2 85 HCO3 25.8 ABG pH 7.40 ABG Total CO2 27.3 ABG O2 Saturation 98.6 H ABG Base Excess 1.1 ABG Hemoglobin 8.8 L ABG Carboxyhemoglobin 2.3 H POC ABG HHb (Measured) 1.4 ABG Methemoglobin 0.8 Uriel Test Pos A-a O2 Difference 290.0 Respiratory Index 3.4 Hgb O2 Saturation 95.5 Vent Mode A/c Mechanical Rate 14 FiO2 60.0 Tidal Volume 450 PEEP 10 Sodium Potassium Chloride Carbon Dioxide Anion Gap BUN Creatinine Est GFR ( Amer) Est GFR (Non-Af Amer) POC Glucose (mg/dL) 260 H Random Glucose Calcium Phosphorus Magnesium Total Bilirubin AST ALT Alkaline Phosphatase Total Protein Albumin Globulin Albumin/Globulin Ratio 08/21/17 06:02 WBC RBC Hgb Hct MCV MCH MCHC RDW Plt Count MPV Neut % (Auto) Lymph % (Auto) [place] % (Auto) Eos % (Auto) Baso % (Auto) Neut # Lymph # [place] # Eos # Baso # Neutrophils % (Manual) Band Neutrophils % Lymphocytes % (Manual) Monocytes % (Manual) Eosinophils % (Manual) Platelet Estimate Large Platelets Hypochromasia (manual) Anisocytosis (manual) Ovalocytes Puncture Site pCO2 pO2 HCO3 ABG pH ABG Total CO2 ABG O2 Saturation ABG Base Excess ABG Hemoglobin ABG Carboxyhemoglobin POC ABG HHb (Measured) ABG Methemoglobin Uriel Test A-a O2 Difference Respiratory Index Hgb O2 Saturation Vent Mode Mechanical Rate FiO2 Tidal Volume PEEP Sodium 135 Potassium 4.9 Chloride 94 L Carbon Dioxide 24 Anion Gap 22 H BUN 69 H Creatinine 4.6 H Est GFR ( Amer) 15 Est GFR (Non-Af Amer) 12 POC Glucose (mg/dL) Random Glucose 267 H Calcium 8.8 Phosphorus 8.0 H Magnesium 2.9 H Total Bilirubin 0.9 AST 56 ALT 66 Alkaline Phosphatase 170 H Total Protein 6.6 Albumin 3.4 L Globulin 3.2 Albumin/Globulin Ratio 1.1 Fingerstick Blood Sugar Results: 105
[2017-08-21] MEDS: Enoxaparin 30 mg Syringe SC SCH (09:23)
[2017-08-21] MEDS: Lactobacillus Acidophilus 500 MU Cap PO SCH ×2 (09:24→17:42)
--- NOTE | 2017-08-21 10:35 | CP.PCM.PN ---
Subjective - Date & Time of Evaluation Date of Evaluation: 08/21/17 Time of Evaluation: 07:00 - Subjective Subjective: General Surgery Dr. Forbes Pt S&E @bedside. 1 episode RVR overnight. pt intubated on sedation vacation. Objective - Vital Signs/Intake and Output Vital Signs (last 24 hours): Temp Pulse Resp BP Pulse Ox 99.8 F H 97 H 23 140/49 L 96 08/21/17 08:00 08/21/17 10:00 08/21/17 10:00 08/21/17 09:49 08/21/17 10:00 Intake and Output: 08/21/17 08/21/17 06:59 18:59 Intake Total 679.8 306.8 Output Total 140 25 Balance 539.8 281.8 - Medications Medications: Current Medications Acetaminophen (Tylenol 650mg/20.3ml Solution Ud) 650 mg PO Q6 PRN PRN Reason: Temperature Last Admin: 08/19/17 12:11 Dose: 650 mg Albuterol/Ipratropium (Duoneb 3 Mg/0.5 Mg (3 Ml) Ud) 3 ml INH RQ4 LUIS FERNANDO Last Admin: 08/21/17 08:05 Dose: 3 ml Aspirin (Aspirin Chewable) 81 mg PO DAILY LUIS FERNANDO Last Admin: 08/21/17 09:24 Dose: 81 mg Enoxaparin Sodium (Lovenox) 30 mg SC DAILY [facility] Last Admin: 08/21/17 09:23 Dose: 30 mg Epoetin Chencho (Procrit) 10,000 unit IV MWF [facility] Last Admin: 08/19/17 18:36 Dose: 10,000 unit Famotidine (Pepcid) 20 mg PO DAILY LUIS FERNANDO Last Admin: 08/21/17 09:24 Dose: 20 mg Cefepime HCl 1 gm/ Dextrose 50 mls @ 100 mls/hr IVPB Q24H LUIS FERNANDO Last Admin: 08/20/17 12:57 Dose: 100 mls/hr Dobutamine HCl/Dextrose (Dobutamine/Dextrose 5% 500mg/250ml) 500 mg in 250 mls @ 7.02 mls/hr IV .Q24H LUIS FERNANDO; 2.5 MCG/KG/MIN PRN Reason: Protocol Last Admin: 08/21/17 02:14 Dose: 1.78 mcg/kg/min, 5 mls/hr Insulin Aspart (Novolog) 0 unit SC Q6 [facility] PRN Reason: Protocol Last Admin: 08/21/17 06:03 Dose: 6 unit Insulin Detemir (Levemir) 16 unit SC Q12H [facility] Last Admin: 08/21/17 07:42 Dose: 16 unit Lactobacillus Acidophilus (Bacid Acidophilus) 1 cap PO BID [facility] Last Admin: 08/21/17 09:24 Dose: 1 cap Metoprolol Tartrate (Lopressor) 25 mg PO BID [facility] Last Admin: 08/21/17 09:24 Dose: 25 mg Midazolam HCl (Versed Inj) 2 mg IVP Q3H PRN PRN Reason: Agitation Last Admin: 08/21/17 09:23 Dose: 2 mg Rosuvastatin Calcium (Crestor) 10 mg PO HS [facility] Last Admin: 08/20/17 21:41 Dose: 10 mg - Labs Labs: 08/21/17 06:02 08/21/17 06:02 PT 13.0 SECONDS (9.7-12.2) H 08/09/17 23:23 INR 1.2 08/09/17 23:23 APTT 55 SECONDS (21-34) H D 08/17/17 06:12 - Constitutional Appears: Non-toxic, No Acute Distress - Head Exam Head Exam: NORMAL INSPECTION - Eye Exam Additional comments: R pupil fixed L pupil reactive to light - ENT Exam ENT Exam: Mucous Membranes Moist Additional comments: ETT/OGT in place - Respiratory Exam Respiratory Exam: NORMAL BREATHING PATTERN (mecahnical ventilation). absent: Accessory Muscle Use, Respiratory Distress Additional comments: R pigtail catheter in place 10cc serous output overnight - Cardiovascular Exam Cardiovascular Exam: absent: Bradycardia, Tachycardia - GI/Abdominal Exam GI & Abdominal Exam: Soft. absent: Distended - Extremities Exam Extremities Exam: Normal Inspection - Neurological Exam Neurological Exam: Altered Additional comments: opens eyes to verbal stimuli grimaces to sternal rub - Skin Skin Exam: Dry, Intact, Normal Color, Warm Assessment and Plan - Assessment and Plan (Free Text) Assessment: 77 y/o M w/ respiratory failure 2/2 ARDs - cont to ween PEEP - possible trach tomorrow bedside vs OR - NPO after MN - recommend neuro consult - cont medical management Pt discussed w/ Dr. Andrei Lanier DO PGY2
--- NOTE | 2017-08-21 16:29 | CP.PCM.PN ---
Subjective - Date & Time of Evaluation Date of Evaluation: 08/21/17 Time of Evaluation: 16:15 - Subjective Subjective: Hospitalist Progress Note Patient was seen and examined at 4:15 M 08/21/17 ICU Bed #5. 77 year old male with extensive medical history (please see Assessment and Plans below) was admitted on 08/06/17 for evaluation of SOB and Chest Pain. He was planned for Cardiac Catheterization on 08/09/17 due to his elevated Cr. Patient then had Acute Respiratory Failure and had to be intubated and placed on vent. Please see details below. As the patients PEEP level is down to 6, he is for Tracheostomy 08/22/17. Glucerna will be placed on hold after midnight 08/21/17. ROS are not possible as patient is currently intubated/on ventilator. Exam: - Head Exam Head Exam: NORMAL INSPECTION - Eye Exam Eye Exam: could not evaluate EOM due to patient's current status Pupil Exam: round, equal, and reactive to light - Respiratory Exam Respiratory Exam: Decreased Breath Sounds however they are clearer today than before Additional comments: intubated on vent - Cardiovascular Exam Cardiovascular Exam: REGULAR RHYTHM, +S1, +S2 - GI/Abdominal Exam GI & Abdominal Exam: Distended, Soft, Normal Bowel Sounds, could not palpate liver and spleen. absent: Firm, Guarding, Rigid, Tenderness, Rebound Additional comments: obese habitus - Extremities Exam Extremities Exam: Normal Capillary Refill, Pedal Edema. absent: Tenderness Additional comments: Prevalon boots b/l - Neurological Exam Additional comments: sedated - Skin Skin Exam: Dry, Normal Color, Warm Assessment and Plan - Assessment and Plan (Free Text) Assessment: (1) Acute Respiratory Failure ARDS Cardiac Arrest Pulmonary Edema NONSTEMI Assessment and Plan: * Code Blue on 08/10: asystole, cardiopulmonary resuscitative measures initiated , requiring 3 epis, bicarbonate, ROSC achieved and intubated and brought to the ICU for further management * 08/10: Central line placed by ICU; placed on tridil drip; heparin drip c/w * 08/11: Patient placed on Lasix IV. On heparin drip. No plans for cardiac cath at time time. Chest Xray (08/11/17): NG tube extending into the stomach. Endotracheal tube extending into the mild thoracic trachea. Left sided pacemaker. multiple overlying external wires and tubing, Moderate severe venous congestion with prominent confluent airspace opacities in the mid to lower lung zones with associated small to moderate bilateral pleural effusions. scattered nodular densities in both lungs. Cardiomegaly. Degenerative changes in the spine and shoulders. * 08/12: Chest xray (08/12/17): right basilar opacity. Small right pleural effusion. Lines and tubes unchanged.-->C/w Lasix. Discussed with Dr. Mena (pulm) , recommended for CT Chest w/o contrast for possible ARDS. increased peep 10 * 08/13: pending chest /abdomen xray for this morning; self-extubated and reintubated overnight; off tridil drip secondary to hypotension post intubation ; on heparin drip * CT Chest/Abdomen/Pelvis (08/13): moderate to large bilateral pleural effusions largeer on thr right associated with atelectasis at lower lobes. Nonspecific ground-glass opacities in the upper lobe new may be due to pulmonary vascular congestion. moderately cardiomegaly. No evidence of bowel obstruction. Moderately to markedly enlarged prostate. nonobstructing calculus at mid to lower pole left kidney. Gallstone without evidence of cholecystitis. Scattered diverticulosis without evidence of diverticulitis * Repeat CT Chest 08/18 showed moderate Bilateral Pleural Effusion associated with compressive consolidations. I spoke with Cardiothoracic Surgeon Dr. Lopez and he recommended bilateral pigtail catheters. ICU Team placed Right Chest Pigtail Catheter 08/19 and as only small amount of fluid was produced, Left Chest Pigtail Catheter was not placed. Pleural Fluid studies (Total Protein, LDH , Glucose, Cell count with diff, Gram Stain and Culture, pH) have been ordered . * Patient was planned for Tracheostomy 08/19/17 however due to his PEEP of 14 this is currently on hold. * 08/21: PEEP is down to 6. Tracheostomy is planned for 08/22 and Nurse Minal has been made aware to STOP Glucerna NG feeding after midnight (2) Chest pain Assessment and Plan: * Cardiology (Dr. Cortés) on board-->help appreciated * All trops WNL; Troponin positive in light of CPR * EKG x2 = Sinus tachycardia notes with possible left atrial enlargement; no apparent T segment elevations in contiguous leads * Patient was Heparin Drip but this was discontinued 08/17/17 * Patient's cardiac catherization cancelled secondary to rise in creatinine (2.3 ) on 08/09/17. * Patient has hx of abnormal stress test. Discussed with cardiology and nephrology given change in Cr on 08/09. * Echocardiogram (08/08/17): left ventricle systolic function is severely impaired. EF: 25-30%; global hypokinesis of left ventricle mild aortic regurgitation. Mitral regurgitation is moderate. Moderate-severe pulmonary hypertesnion * Hx of ACID * Aspirin 81mg PO daily * Plavix 75mg PO daily * Crestor 10mg POqHS * Metoprolol Succinate 50 mg PO 1x/day was placed on Hold 08/17/17 * Off Arb secondary to ARF * TSH: 1.16; T4: 1.53 (3) Acute Systolic CHF exacerbation Assessment and Plan: * Cardiology Dr. Cortés is following * Transferred to the ICU on 08/10 following cardiac arrest and intubation. * Echocardiogram (08/08/17): left ventricular systolic function is severely impaired. EF: 25-30%; global hypokinesis of left ventricle mild aortic regurgitation. Mitral regurgitation is moderate. Moderate-severe pulmonary hypertension * Height of bed at 45 degrees, Strict ins and outs, monitor daily weights * Aspirin 81mg PO daily * Plavix 75mg PO daily * Crestor 10mg POqHS * Metoprolol Succinate 50mg PO 1x/day was placed on Hold 08/17/17 * Off Arb secondary to ARF * Has been receiving HD 08/16/17 and 08/19/17 to help reduce the pulmonary congestion * Started on Dobutamine 2.5 mcg/kg/min 08/19/17 Status: Acute (4) Pneumonia Assessment and Plan: * Pulmonary (Dr. Mena) on board-->help appreciated * Infectious Disease (Dr. Lawrence)-->help appreciated * Rapid A strep, Influenza A and B studies, Urine Legionella, Mycoplasma studies = Negative * Florastor 250mg PO bid * +Strep Pneumoniae in the urine * 08/12: Will repeat urine studies and exchange out the jaquez * Meropenem 500mg IV Q 8 hours ( 08/14/17 through 08/18/17) and Zosyn 2.25 mg IV Q6H (08/13/17 through 08/18/17) * 08/18: Chest X Ray shows scattered dense confluent pathcy areas of consolidative change seen throughout both lungs most prominent in left lung and right lung base * Sputum Culture 08/19/17 shows NO growth * Cefepime 1 gm IV Q24H (08/19/17) Status: Acute (5) CAD (coronary artery disease) Assessment and Plan: * Hx of cardiac stent in the past * Cardiac cath on hold given events on 08/10 Status: Acute (6) HTN (hypertension) Assessment and Plan: * Metoprolol XL 50 mg PO 1x/day Status: Chronic (7) CKD (chronic kidney disease) Assessment and Plan: * Dr. Miranda (nephrology) consulted on the case * Hx of CKD * GFR 45 which appears to be around baseline * Stopped ARB given rise in CR * Off IV fluids given pulmonary edema * Monitor in and output: has not been producing significant amount of urine and HD was recommended by Nephrology * Receiving HD through Left Femoral Catheter (last HD was 08/20/17) Status: Acute (8) Diabetes mellitus Assessment and Plan: * Accuchecks Q6H * A1c 8.4 * 08/20: Required 26 units on Aspart ISS from 4 AM 08/19/17 through 4 AM 08/20/17 therefore half of this was added to total Levemir dose. Levemir now is 16 Units SC Q12H * Insulin Aspart ISS Q6H * 08/21: Patient required 32 units on Aspart ISS from 4 AM 08/20/17 through 4 AM . Was going to increase the Levemir dose to 32 units, however patient will be NPO after midnight 08/21/17 therefore this was not done. Status: Chronic (9) HLD (hyperlipidemia) Assessment and Plan: * On Crestor 10 mg PO HS Status: Chronic (10) Constipation Assessment and Plan: * Having bowel movements per nursing notes (08/14/17) * Senokot 50/8.6 1 tab PO 2x/day * 08/12: Will given ducolax suppository X1 * 08/13: has not had bowel movement; ordered for abdominal/chest xray in light of abdominal distension * CT Chest/Abdomen/Pelvis (08/13): moderate to large bilateral pleural effusions largeer on thr right associated with atelectasis at lower lobes. Nonspecific ground-glass opacities in the upper lobe new may be due to pulmonary vascular congestion. moderately cardiomegaly. No evidence of bowel obstruction. Moderately to markedly enlarged prostate. nonobstructing calculus at mid to lower pole left kidney. Gallstone without evidence of cholecystitis. Scattered diverticulosis without evidence of diverticulitis * 08/14: Patient is not obstructed per review CT scan * 08/19: He is moving his bowels as of 08/19/17 but the Senokot was placed on hold has the movements have been very soft * 08/21: patient is having normal bowel movements as per Nurse Fontaine Status: Chronic (11) Anemia Assessment and Plan: * Heme-oncology (Dr. Giles bender) on board-->help appreciated * Likely iron deficiency anemia based on prior admissions * Ferritin 27.4, Iron 22, TIBC 322, % Saturation 7 * Ferric Sodium Gluconate 125mg IVPB daily (active 08/08-08/16) * Procrit 10,000 units M-- * Monitor Hgb/Hct: stable Status: Chronic (12) History of DVT (deep vein thrombosis) Assessment and Plan: * Patient was previously on Eliquis for a prior history of DVT. * Repeat dopplers 08/09/17 are negative for DVT * Off Heparin Drip 08/17/17 Status: Acute (13) UTI * Infectious disease (Dr. Lawrence) on board-->help appreciated * Exchange jaquez out and repeat urine cultures * Urine Culture 08/12/17 showed Gram Negative Rods: NO identification and NO sensitivities were performed * Meropenem 500mg IV Q 12hours (active since 08/14/17 through 08/18/17) to cover for UTI per ID * Repeat Urine Culture 08/18/17 shows NO growth (14) Confusion; Alzheimer's Dementia Assessment and Plan: * Per daughter, patient has been getting bouts of confusion over the past year but appears at baseline. Patient has not seen formal neurology as outpatient per daughter. Per , prior to event, noted Alzheimers' disease dx one year ago * CT head w/o contrast (08/10/17):acute os subacute lacune infarct is not excluded in the left basal ganglia inferiorly with definitive chronic lacune identified in the right basal ganglia superiorly. No acute or subacute lobar brain infarction is appreciable by standard CT criteria. Mild age-related neuro degenerative changes are identifed. No acute intracranial hemorrhage or mass is identified throughout * 08/11: Patient gets agitated and will fight to pull the intubation tube out per nursing. Was placed on sedation and Ativan PRN * 08/12: patient is responsive to questions, able to move all extremities, off sedation. Patient is on PRN Versed and Ativan PRN. Will respond to yes and no questions * 08/13: Back on sedation since reintubation; patient is moving all extremities * 08/18: Versed 2 mg IV Q3H PRN Anxiety (15) Prophylactic measure Assessment and Plan: * Pepcid 20mg PO daily * Lovenox 30 mg SC 1x/day * Glucerna 1.5 at 40 ml/hour via NGT * Bacid 1 cap NGT 2x/day * Atrovent Q6H PRN * Tylenol 650 mg PO Q6H PRN Temperature * Albumin 25% 12.5 gm IV Q2H x 3 doses on 08/18/17 and 08/19/17 Cullen Barth D.O. Objective - Vital Signs/Intake and Output Vital Signs (last 24 hours): Temp Pulse Resp BP Pulse Ox 99.4 F 90 26 H 129/40 L 97 08/21/17 16:00 08/21/17 16:00 08/21/17 16:00 08/21/17 15:49 08/21/17 16:00 Intake and Output: 08/21/17 08/21/17 06:59 18:59 Intake Total 679.8 685 Output Total 140 25 Balance 539.8 660 - Medications Medications: Current Medications Acetaminophen (Tylenol 650mg/20.3ml Solution Ud) 650 mg PO Q6 PRN PRN Reason: Temperature Last Admin: 08/19/17 12:11 Dose: 650 mg Albuterol/Ipratropium (Duoneb 3 Mg/0.5 Mg (3 Ml) Ud) 3 ml INH RQ4 COUNT INCLUDES THE [facility] Last Admin: 08/21/17 16:07 Dose: 3 ml Aspirin (Aspirin Chewable) 81 mg PO DAILY COUNT INCLUDES THE [facility] Last Admin: 08/21/17 09:24 Dose: 81 mg Enoxaparin Sodium (Lovenox) 30 mg SC DAILY COUNT INCLUDES THE [facility] Last Admin: 08/21/17 09:23 Dose: 30 mg Epoetin Chencho (Procrit) 10,000 unit IV MWF COUNT INCLUDES THE [facility] Last Admin: 08/19/17 18:36 Dose: 10,000 unit Famotidine (Pepcid) 20 mg PO DAILY COUNT INCLUDES THE [facility] Last Admin: 08/21/17 09:24 Dose: 20 mg Cefepime HCl 1 gm/ Dextrose 50 mls @ 100 mls/hr IVPB Q24H COUNT INCLUDES THE [facility] Last Admin: 08/21/17 12:17 Dose: 100 mls/hr Dobutamine HCl/Dextrose (Dobutamine/Dextrose 5% 500mg/250ml) 500 mg in 250 mls @ 7.02 mls/hr IV .Q24H LUIS FERNANDO; 2.5 MCG/KG/MIN PRN Reason: Protocol Last Admin: 08/21/17 12:12 Dose: Not Given Insulin Aspart (Novolog) 0 unit SC Q6 LUIS FERNANDO PRN Reason: Protocol Last Admin: 08/21/17 12:18 Dose: 6 unit Insulin Detemir (Levemir) 16 unit SC Q12H COUNT INCLUDES THE [facility] Last Admin: 08/21/17 07:42 Dose: 16 unit Lactobacillus Acidophilus (Bacid Acidophilus) 1 cap PO BID COUNT INCLUDES THE [facility] Last Admin: 08/21/17 09:24 Dose: 1 cap Metoprolol Tartrate (Lopressor) 25 mg PO BID COUNT INCLUDES THE [facility] Last Admin: 08/21/17 09:24 Dose: 25 mg Midazolam HCl (Versed Inj) 2 mg IVP Q3H PRN PRN Reason: Agitation Last Admin: 08/21/17 15:04 Dose: 2 mg Rosuvastatin Calcium (Crestor) 10 mg PO HS COUNT INCLUDES THE [facility] Last Admin: 08/20/17 21:41 Dose: 10 mg - Labs Labs: 08/21/17 06:02 08/21/17 06:02 PT 13.0 SECONDS (9.7-12.2) H 08/09/17 23:23 INR 1.2 08/09/17 23:23 APTT 55 SECONDS (21-34) H D 08/17/17 06:12
--- NOTE | 2017-08-21 21:11 | CP.PCM.PN ---
Subjective - Date & Time of Evaluation Date of Evaluation: 08/21/17 Time of Evaluation: 06:30 - Subjective Subjective: Patient seen and evaluated Intubated. Not in distress Physical examination - Constitutional Appears: No Acute Distress, Chronically Ill - Head Exam Head Exam: NORMAL INSPECTION - Respiratory Exam Respiratory Exam: Decreased Breath Sounds, NORMAL BREATHING PATTERN - Cardiovascular Exam Cardiovascular Exam: REGULAR RHYTHM, +S1, +S2. absent: Murmur - GI/Abdominal Exam GI & Abdominal Exam: Soft, Normal Bowel Sounds - Extremities Exam Extremities Exam: Full ROM, Normal Capillary Refill, Normal Inspection. absent : Joint Swelling, Pedal Edema - Neurological Exam Neurological Exam: absent: Alert, Awake, Oriented x3 (sedated, intubated) - Psychiatric Exam Additional comments: sedated - Skin Skin Exam: Dry, Normal Color, Warm Objective - Vital Signs/Intake and Output Vital Signs (last 24 hours): Temp Pulse Resp BP Pulse Ox 99.2 F 83 14 130/84 98 08/21/17 20:00 08/21/17 20:00 08/21/17 20:00 08/21/17 19:49 08/21/17 20:00 Intake and Output: 08/21/17 08/22/17 18:59 06:59 Intake Total 875 90 Output Total 45 0 Balance 830 90 - Medications Medications: Current Medications Acetaminophen (Tylenol 650mg/20.3ml Solution Ud) 650 mg PO Q6 PRN PRN Reason: Temperature Last Admin: 08/19/17 12:11 Dose: 650 mg Albuterol/Ipratropium (Duoneb 3 Mg/0.5 Mg (3 Ml) Ud) 3 ml INH RQ4 [facility] Last Admin: 08/21/17 19:49 Dose: 3 ml Aspirin (Aspirin Chewable) 81 mg PO DAILY [facility] Last Admin: 08/21/17 09:24 Dose: 81 mg Enoxaparin Sodium (Lovenox) 30 mg SC DAILY [facility] Last Admin: 08/21/17 09:23 Dose: 30 mg Epoetin Chencho (Procrit) 10,000 unit IV MWF [facility] Last Admin: 08/19/17 18:36 Dose: 10,000 unit Famotidine (Pepcid) 20 mg PO DAILY [facility] Last Admin: 08/21/17 09:24 Dose: 20 mg Cefepime HCl 1 gm/ Dextrose 50 mls @ 100 mls/hr IVPB Q24H [facility] Last Admin: 08/21/17 12:17 Dose: 100 mls/hr Dobutamine HCl/Dextrose (Dobutamine/Dextrose 5% 500mg/250ml) 500 mg in 250 mls @ 7.02 mls/hr IV .Q24H [facility]; 2.5 MCG/KG/MIN PRN Reason: Protocol Last Admin: 08/21/17 12:12 Dose: Not Given Insulin Aspart (Novolog) 0 unit SC Q6 [facility] PRN Reason: Protocol Last Admin: 08/21/17 18:05 Dose: 6 unit Insulin Detemir (Levemir) 16 unit SC Q12H [facility] Last Admin: 08/21/17 07:42 Dose: 16 unit Lactobacillus Acidophilus (Bacid Acidophilus) 1 cap PO BID [facility] Last Admin: 08/21/17 17:42 Dose: 1 cap Metoprolol Tartrate (Lopressor) 25 mg PO BID [facility] Last Admin: 08/21/17 17:41 Dose: 25 mg Midazolam HCl (Versed Inj) 2 mg IVP Q3H PRN PRN Reason: Agitation Last Admin: 08/21/17 15:04 Dose: 2 mg Rosuvastatin Calcium (Crestor) 10 mg PO HS [facility] Last Admin: 08/20/17 21:41 Dose: 10 mg - Labs Labs: 08/21/17 06:02 08/21/17 06:02 PT 13.0 SECONDS (9.7-12.2) H 08/09/17 23:23 INR 1.2 08/09/17 23:23 APTT 55 SECONDS (21-34) H D 08/17/17 06:12 Assessment and Plan - Assessment and Plan (Free Text) Assessment: (1) Acute Respiratory Failure ARDS Cardiac Arrest Pulmonary Edema NONSTEMI Assessment and Plan: * Code Blue on 08/10: asystole, cardiopulmonary resuscitative measures initiated , requiring 3 epis, bicarbonate, ROSC achieved and intubated and brought to the ICU for further management * 08/10: Central line placed by ICU; placed on tridil drip; heparin drip c/w * 08/11: Patient placed on Lasix IV. On heparin drip. No plans for cardiac cath at time time. Chest Xray (08/11/17): NG tube extending into the stomach. Endotracheal tube extending into the mild thoracic trachea. Left sided pacemaker. multiple overlying external wires and tubing, Moderate severe venous congestion with prominent confluent airspace opacities in the mid to lower lung zones with associated small to moderate bilateral pleural effusions. scattered nodular densities in both lungs. Cardiomegaly. Degenerative changes in the spine and shoulders. * 08/12: Chest xray (08/12/17): right basilar opacity. Small right pleural effusion. Lines and tubes unchanged.-->C/w Lasix. Discussed with Dr. Mena (pulm) , recommended for CT Chest w/o contrast for possible ARDS. increased peep 10 * 08/13: pending chest /abdomen xray for this morning; self-extubated and reintubated overnight; off tridil drip secondary to hypotension post intubation ; on heparin drip * CT Chest/Abdomen/Pelvis (08/13): moderate to large bilateral pleural effusions largeer on thr right associated with atelectasis at lower lobes. Nonspecific ground-glass opacities in the upper lobe new may be due to pulmonary vascular congestion. moderately cardiomegaly. No evidence of bowel obstruction. Moderately to markedly enlarged prostate. nonobstructing calculus at mid to lower pole left kidney. Gallstone without evidence of cholecystitis. Scattered diverticulosis without evidence of diverticulitis * 08/18: I reviewed the CT Chest 08/13 and there is mention of moderate to large effusions bilaterally but no mention of loculated effusion. Repeat CT Chest has been ordered. I also spoke with CardioThoracic Surgeon Dr. Lopez and his team will evaluate patient for any intervention in this regard. * Patient is for Tracheostomy 08/19/17 (2) Chest pain Assessment and Plan: * All trops WNL; Troponin positive in light of CPR * EKG x2 = Sinus tachycardia notes with possible left atrial enlargement; no apparent T segment elevations in contiguous leads * Patient was Heparin Drip but this was discontinued 08/17/17 * Patient's cardiac catherization cancelled secondary to rise in creatinine (2.3 ) on 08/09/17. * Patient has hx of abnormal stress test. Discussed with cardiology and nephrology given change in Cr on 08/09. * Echocardiogram (08/08/17): left ventricle systolic function is severely impaired. EF: 25-30%; global hypokinesis of left ventricle mild aortic regurgitation. Mitral regurgitation is moderate. Moderate-severe pulmonary hypertesnion * Hx of ACID * Aspirin 81mg PO daily * Plavix 75mg PO daily * Crestor 10mg POqHS * Metoprolol Succinate 50 mg PO 1x/day was placed on Hold 08/17/17 * Off Arb secondary to ARF * TSH: 1.16; T4: 1.53 (3) Acute Systolic CHF exacerbation Assessment and Plan: * Transferred to the ICU on 08/10 following cardiac arrest and intubation. * Echocardiogram (08/08/17): left ventrcile systolic function is severely impaired. EF: 25-30%; global hypokinesis of left ventricle mild aortic regurgitation. Mitral regurgitation is moderate. Moderate-severe pulmonary hypertension * Height of bed at 45 degrees, Strict ins and outs, monitor daily weights * Aspirin 81mg PO daily * Plavix 75mg PO daily * Crestor 10mg POqHS * Metoprolol Succinate 50mg PO 1x/day was placed on Hold 08/17/17 * Off Arb secondary to ARF * Has been receiving HD 08/16/17 and 08/18/17 to help reduce the pulmonary congestion Status: Acute (4) Pneumonia Assessment and Plan: * Pulmonary (Dr. Mena) on board-->help appreciated * Infectious Disease (Dr. Lawrence)-->help appreciated * Rapid A strep, Influenza A and B studies, Urine Legionella, Mycoplasma studies = Negative * Florastor 250mg PO bid * +Strep Pneumoniae in the urine * 08/12: Will repeat urine studies and exchange out the jaquez * 08/15: Meropenem 500mg IV Q 8 hours (active since 08/14/17) and Zosyn 2.25 mg IV Q6H (08/13/17) * 08/18: Chest X Ray shows scattered dense confluent pathcy areas of consolidative change seen throughout both lungs most prominent in left lung and right lung base Status: Acute (5) CAD (coronary artery disease) Assessment and Plan: * Hx of cardiac stent in the past * Cardiac cath on hold given events on 08/10 Status: Acute (6) HTN (hypertension) Assessment and Plan: * Metoprolol XL 50 mg PO 1x/day was placed on hold 08/17/17 as patient's blood pressure has been at the low end of normal Status: Chronic (7) CKD (chronic kidney disease) Assessment and Plan: * Dr. Miranda (nephrology) consulted on the case * Hx of CKD * GFR 45 which appears to be around baseline * Stopped ARB given rise in CR * Off IV fluids given pulmonary edema * Monitor in and output: has not been producing significant amount of urine and HD was recommended by Nephrology * Receiving HD through Left Femoral Catheter Status: Acute (8) Diabetes mellitus Assessment and Plan: * Accuchecks Q6H * A1c 8.4 * Lantus 10 units subqHS * Insulin Aspart 6 units subq Q6H Status: Chronic (9) HLD (hyperlipidemia) Assessment and Plan: * On Crestor 10 mg Po HS Status: Chronic (10) Constipation Assessment and Plan: * Having bowel movements per nursing notes (08/14/17) * Senokot 50/8.6 1 tab PO 2x/day * 08/12: Will given ducolax suppository X1 * 08/13: has not had bowel movement; ordered for abdominal/chest xray in light of abdominal distension * CT Chest/Abdomen/Pelvis (08/13): moderate to large bilateral pleural effusions largeer on thr right associated with atelectasis at lower lobes. Nonspecific ground-glass opacities in the upper lobe new may be due to pulmonary vascular congestion. moderately cardiomegaly. No evidence of bowel obstruction. Moderately to markedly enlarged prostate. nonobstructing calculus at mid to lower pole left kidney. Gallstone without evidence of cholecystitis. Scattered diverticulosis without evidence of diverticulitis * 08/14: Patient is not obstructed per review CT scan Status: Chronic (11) Anemia Assessment and Plan: * Heme-oncology (Dr. Giles bender) on board-->help appreciated * Likely iron deficiency anemia based on prior admissions * Ferritin 27.4, Iron 22, TIBC 322, % Saturation 7 * Ferric Sodium Gluconate 125mg IVPB daily (active 08/08-08/16) * Procrit 10,000 units M-W-F * Monitor Hgb/Hct: stable Status: Chronic (12) History of DVT (deep vein thrombosis) Assessment and Plan: * Patient was previously on Eliquis for a prior history of DVT. * Repeat dopplers 08/09/17 are negative for DVT * Off Heparin Drip 08/17/17 Status: Acute (13) UTI * Infectious disease (Dr. Lawrence) on board-->help appreciated * Exchange jaquez out and repeat urine cultures * Urine Culture 08/12/17 showed Gram Negative Rods: follow up identification and sensitivities * Meropenem 500mg IV Q 12hours (active since 08/14/17) to cover for UTI per ID * Repeat Urine Culture ordered 08/18/17 (14) Confusion; Alzheimer's Dementia Assessment and Plan: * Per daughter, patient has been getting bouts of confusion over the past year but appears at baseline. Patient has not seen formal neurology as outpatient per daughter. Per , prior to event, noted Alzheimers' disease dx one year ago * CT head w/o contrast (08/10/17):acute os subacute lacune infarct is not excluded in the left basal ganglia inferiorly with definitive chronic lacune identified in the right basal ganglia superiorly. No acute or subacute lobar brain infarction is appreciable by standard CT criteria. Mild age-related neuro degenerative changes are identifed. No acute intracranial hemorrhage or mass is identified throughout * 08/11: Patient gets agitated and will fight to pull the intubation tube out per nursing. Was placed on sedation and Ativan PRN * 08/12: patient is responsive to questions, able to move all extremities, off sedation. Patient is on PRN Versed and Ativan PRN. Will respond to yes and no questions * 08/13: Back on sedation since reintubation; patient is moving all extremities * 08/18: Versed 2 mg IV Q4H PRN Anxiety (15) Prophylactic measure Assessment and Plan: * Pepcid 20mg PO daily * Lovenox 30 mg SC 1x/day * Glucerna 1.5 at 40 ml/hour via NGT * Bacid 1 cap NGT 2x/day * Atrovent Q6H PRN * Tylenol 650 mg PO Q6H PRN Temperature * Albumin 25% 12.5 gm IV Q2H x 3 doses on 08/18/17 and 08/19/17
[2017-08-22] MEDS: (Novolog) Insulin Aspart, Recombinant 100 u/ml 10 ml vial SC SCH ×4 (00:26→18:57)
[2017-08-22] MEDS: Albuterol-Ipratrop 3 mg / 0.5 (3 ml) UD INH SCH ×4 (01:09→11:27)
[2017-08-22 05:26] LABS: ABG ALLEN TEST POS; ABG MECHANICAL RATE 14; ARTERIAL BLOOD GAS MODE PRVC; ARTERIAL BLOOD HGB O2 SAT 91.3 % (95.0-98.0); ATERIAL BLOOD GAS PEEP 6; CARBOXYHEMOGLOBIN 2.5 % (0.5-1.5); DRAW SITE RRADIAL; HHB 5.7 % (0.0-5.0); METHEMOGLOBIN 0.4 % (0.0-3.0)
[2017-08-22 06:42] LABS: HEMATOCRIT 27.5 % (35.0-51.0); MEAN CELL VOLUME 74.3 fL (80.0-94.0); MEAN CORPUSCULAR HEMOGLOBIN 22.9 pg (27.0-31.0); MEAN CORPUSCULAR HGB CONC 30.8 g/dL (33.0-37.0); MEAN PLATELET VOLUME 8.8 fL (7.2-11.7); RED CELL DISTRIBUTION WIDTH 22.3 % (11.5-14.5)
[2017-08-22 07:39] LABS: ALB/GLOB RATIO 0.9 (1.0-2.1); BILIRUBIN,TOTAL 0.8 mg/dL (0.2-1.3)
[2017-08-22 07:40] LABS: CALCIUM 8.5 mg/dl (8.6-10.4); MAGNESIUM 3.4 mg/dL (1.6-2.3); PHOSPHOROUS 9.5 mg/dL (2.5-4.5)
[2017-08-22] MEDS: Midazolam 2 MG/2 ML VIAL IVP PRN ×3 (08:01→23:08)
[2017-08-22] MEDS: Insulin Detemir 100 units/ml Vial (Levemir) SC SCH ×2 (09:01→20:11)
[2017-08-22] MEDS: Enoxaparin 30 mg Syringe SC SCH (10:00)
[2017-08-22] MEDS: Lactobacillus Acidophilus 500 MU Cap PO SCH ×2 (10:03→18:46)
--- NOTE | 2017-08-22 10:12 | RAD ---
Chest x-ray single frontal view History: Intubated. Comparison: 08/21/2017 Findings: Lines and tubes in stable position. Left-sided pacemaker. Moderate to severe venous congestion with prominent bibasilar airspace opacities. Worsening now loculated small bilateral pleural effusions ; left greater than right. Cardiomegaly. Left-sided pacemaker. Degenerative changes in the spine and shoulders. Impression: Lines and tubes in stable position. Left-sided pacemaker. Moderate to severe venous congestion with prominent bibasilar airspace opacities. Worsening now loculated small bilateral pleural effusions ; left greater than right. Cardiomegaly. Left-sided pacemaker.
--- NOTE | 2017-08-22 11:55 | CP.PCM.PN ---
Subjective - Date & Time of Evaluation Date of Evaluation: 08/22/17 Time of Evaluation: 11:53 - Subjective Subjective: seen and examined anuric on vent, tube feeds for trach today Objective - Vital Signs/Intake and Output Vital Signs (last 24 hours): Temp Pulse Resp BP Pulse Ox 98.7 F 133 H 27 H 124/53 L 97 08/22/17 04:00 08/22/17 08:50 08/22/17 08:50 08/22/17 08:50 08/22/17 08:50 Intake and Output: 08/22/17 08/22/17 06:59 18:59 Intake Total 300 0 Output Total 45 Balance 255 0 - Medications Medications: Current Medications Acetaminophen (Tylenol 650mg/20.3ml Solution Ud) 650 mg PO Q6 PRN PRN Reason: Temperature Last Admin: 08/19/17 12:11 Dose: 650 mg Albuterol/Ipratropium (Duoneb 3 Mg/0.5 Mg (3 Ml) Ud) 3 ml INH RQ4 [facility] Last Admin: 08/22/17 11:27 Dose: 3 ml Aspirin (Aspirin Chewable) 81 mg PO DAILY [facility] Last Admin: 08/22/17 10:09 Dose: Not Given Enoxaparin Sodium (Lovenox) 30 mg SC DAILY [facility] Last Admin: 08/22/17 10:00 Dose: Not Given Epoetin Chencho (Procrit) 10,000 unit IV MWF [facility] Last Admin: 08/19/17 18:36 Dose: 10,000 unit Famotidine (Pepcid) 20 mg PO DAILY [facility] Last Admin: 08/22/17 10:03 Dose: 20 mg Cefepime HCl 1 gm/ Dextrose 50 mls @ 100 mls/hr IVPB Q24H [facility] Last Admin: 08/21/17 12:17 Dose: 100 mls/hr Dobutamine HCl/Dextrose (Dobutamine/Dextrose 5% 500mg/250ml) 500 mg in 250 mls @ 7.02 mls/hr IV .Q24H [facility]; 2.5 MCG/KG/MIN PRN Reason: Protocol Last Titration: 08/22/17 08:40 Dose: 0 mcg/kg/min, 0 mls/hr Insulin Aspart (Novolog) 0 unit SC Q6 [facility] PRN Reason: Protocol Last Admin: 08/22/17 06:05 Dose: Not Given Insulin Detemir (Levemir) 16 unit SC Q12H [facility] Last Admin: 08/22/17 09:01 Dose: Not Given Lactobacillus Acidophilus (Bacid Acidophilus) 1 cap PO BID [facility] Last Admin: 08/22/17 10:03 Dose: 1 cap Metoprolol Tartrate (Lopressor) 50 mg PO BID [facility] Last Admin: 08/22/17 10:03 Dose: 50 mg Midazolam HCl (Versed Inj) 2 mg IVP Q3H PRN PRN Reason: Agitation Last Admin: 08/22/17 08:01 Dose: 2 mg Rosuvastatin Calcium (Crestor) 10 mg PO HS [facility] Last Admin: 08/21/17 21:48 Dose: 10 mg - Labs Labs: 08/22/17 06:36 08/22/17 06:36 PT 13.0 SECONDS (9.7-12.2) H 08/09/17 23:23 INR 1.2 08/09/17 23:23 APTT 55 SECONDS (21-34) H D 08/17/17 06:12 - Constitutional Appears: No Acute Distress, Chronically Ill - Head Exam Head Exam: NORMAL INSPECTION - Eye Exam Eye Exam: Normal appearance - ENT Exam Additional comments: et tube - Neck Exam Neck Exam: Normal Inspection - Respiratory Exam Respiratory Exam: NORMAL BREATHING PATTERN (mechanical vent sounds, decreased at bases) - Cardiovascular Exam Cardiovascular Exam: Tachycardia, REGULAR RHYTHM - GI/Abdominal Exam GI & Abdominal Exam: Distended, Soft - Extremities Exam Extremities Exam: Normal Inspection Assessment and Plan (1) Acute on chronic renal failure Status: Acute (2) CHF (congestive heart failure) Status: Acute (3) History of DVT (deep vein thrombosis) Status: Acute (4) CAD (coronary artery disease) Status: Acute (5) CKD (chronic kidney disease) Status: Acute - Assessment and Plan (Free Text) Assessment: maintain hd mwf needs permcath recommend hematology eval, faintly positive immunofixation / spep
[2017-08-22] MEDS ORDERED: Lactated Ringer's 1,000 ML IV ONE (13:47)
[2017-08-22] MEDS ORDERED: Midazolam 2 MG/2 ML VIAL ONE (14:19)
[2017-08-22] MEDS ORDERED: Rocuronium 10 mg/ml (5 ml) ONE (14:19)
[2017-08-22] MEDS ORDERED: Sodium Chloride 0.9% 1,000 ML IV ONE (14:35)
[2017-08-22] MEDS ORDERED: HEPARIN-NS 5,000 UNITS/500 ML 5,000 UNIT/500 ML BAG IV ONE (14:44)
[2017-08-22] MEDS ORDERED: ePHEDrine 50 mg/ml Inj ONE (14:59)
--- NOTE | 2017-08-22 15:16 | CP.PCM.PCO ---
Physician Communication Note - Physician Communication Note Physician Communication Note: Attempted to see patient in OR for trache and permacath placement
[2017-08-22] MEDS ORDERED: Iodixanol 320 MG/ML 200 ML BOTTLE IV ONE (15:23)
--- NOTE | 2017-08-22 16:04 | PCM.SURG1 ---
Surgeon's Initial Post Op Note - Surgeon's Notes Surgeon: Dr. Forbes Antenna Installer: Dr. Austin PGy3; Dr De La Torre PGy2 Type of Anesthesia: General Endo Pre-Operative Diagnosis: Resp Failure, Acute renal failure Operative Findings: same Post-Operative Diagnosis: same Operation Performed: Percutaneous Tracheostomy. Flexible Bronchoscopy. Insertion of Right Subclavian Permacath Specimen/Specimens Removed: none Estimated Blood Loss: EBL {In ML}: 10 Blood Products Given: N/A Drains Used: No Drains Post-Op Condition: Fair Date of Surgery/Procedure: 08/22/17 Time of Surgery/Procedure: 16:04
--- NOTE | 2017-08-22 17:34 | RAD ---
HISTORY: s/p Trach and R Subclav Permacath COMPARISON: Chest x-ray performed 08/22/17 TECHNIQUE: Chest, one view. FINDINGS: Tracheostomy tube. Right-sided dialysis catheter with distal tips extending to the cavoatrial junction/ proximal RA. Right IJ approach central venous catheter extends expected location of the SVC, partially obscured by dialysis catheter. Right-sided pigtail drainage catheter. LUNGS: Biapical pleural thickening. Small bilateral pleural effusions. Mild bibasilar atelectasis/infiltrates. No definite pneumothorax. CARDIOVASCULAR: Single lead left-sided AICD. Cardiomegaly. Atherosclerotic calcifications of the aorta. OSSEOUS STRUCTURES: Degenerative changes. VISUALIZED UPPER ABDOMEN: Unremarkable. OTHER FINDINGS: None. IMPRESSION: Support lines and tubes as above. Cardiomegaly. Biapical pleural thickening. Small bilateral pleural effusions. Mild bibasilar atelectasis/infiltrates.
--- NOTE | 2017-08-22 17:48 | CP.CCUPN ---
CCU Subjective - Physician Review Subjective (Free Text): HPI: Patient seen and examined at bedside. He is awake and moving his extremities on his own. He remains intubated, not on sedation. Full ROS was not obtained due to his current status. Patients medical record and labs were reviewed and case with discussed with housestaff. 08/22/17 17:46 CCU Objective - Vital Signs / Intake & Output Vital Signs (Last 4 hours): Vital Signs Pulse Resp BP Pulse Ox 08/22/17 13:49 86 28 H 106/52 L 95 Intake and Output (Last 8hrs): Intake & Output 08/22/17 08/22/17 08/22/17 06:59 14:59 22:59 Intake Total 120 10 Output Total 45 80 Balance 75 -70 Weight 186 lb Intake: IV 0 Intake, IV Amount 40 10 Right Proximal Port 40 10 Tube Feeding 80 Output: Urine 45 80 Urethral (Sanchez) 45 80 Other: # Bowel Movements 0 - Physical Exam Head: Positive for: Atraumatic, Normocephalic Pupils: Positive for: Sluggish Conjunctiva: Positive for: Normal Pharnyx: Positive for: Normal Respiratory/Chest: Positive for: Decreased Breath Sounds, Other (on vent) Cardiovascular: Positive for: Regular Rate and Rhythm, Normal S1, S2 Abdomen: Positive for: Distention, Normal Bowel Sounds, Other (obese habitus) Skin: Positive for: Warm, Dry Psychiatric: Positive for: Alert (off sedation) - Medications Active Medications: Active Medications Generic Name Dose Route Start Last Admin Trade Name Freq PRN Reason Stop Dose Admin Acetaminophen 650 mg 08/11/17 17:40 08/19/17 12:11 Tylenol 650mg/20.3ml Solution Ud PO 650 mg Q6 PRN Administration Temperature Albuterol/Ipratropium 3 ml 08/18/17 12:00 08/22/17 11:27 Duoneb 3 Mg/0.5 Mg (3 Ml) Ud INH 3 ml RQ4 LUIS FERNANDO Administration Aspirin 81 mg 08/14/17 11:15 08/22/17 10:09 Aspirin Chewable PO Not Given DAILY LUIS FERNANDO Enoxaparin Sodium 30 mg 08/17/17 10:00 08/22/17 10:00 Lovenox SC Not Given DAILY LUIS FERNANDO Epoetin Chencho 10,000 unit 08/17/17 14:00 08/19/17 18:36 Procrit IV 10,000 unit MWF [facility] FERNANDO Administration Famotidine 20 mg 08/09/17 10:00 08/22/17 10:03 Pepcid PO 20 mg DAILY LU[facility] FERNANDO Administration Cefepime HCl 1 gm/ Dextrose 50 mls @ 100 mls/hr 08/19/17 12:00 08/22/17 14:50 IVPB 50 mls Q24H LUIS FERNANDO Administration Dobutamine HCl/Dextrose 500 mg in 250 mls @ 7.02 mls/hr 08/19/17 11:45 08:40 Dobutamine/Dextrose 5% 500mg/250ml IV 0 mcg/kg/min .Q24H LUIS FERNANDO 0 mls/hr Protocol Titration 2.5 MCG/KG/MIN Insulin Aspart 0 unit 08/19/17 18:00 08/22/17 12:18 Novolog SC Not Given Q6 [facility] Protocol Insulin Detemir 16 unit 08/20/17 08:18 08/22/17 09:01 Levemir SC Not Given Q12H LUIS FERNANDO Lactobacillus Acidophilus 1 cap 08/13/17 18:00 08/22/17 10:03 Bacid Acidophilus PO 1 cap BID LUIS FERNANDO Administration Metoprolol Tartrate 50 mg 08/22/17 09:09 08/22/17 10:03 Lopressor PO 50 mg BID LUIS FERNANDO Administration Midazolam HCl 2 mg 08/19/17 10:59 08/22/17 08:01 Versed Inj IVP 2 mg Q3H PRN Administration Agitation Rosuvastatin Calcium 10 mg 08/06/17 22:00 08/21/17 21:48 Crestor PO 10 mg HS LUIS FERNANDO Administration - Patient Studies Lab Studies: Microbiology Studies 08/19/17 19:00 Gram Stain - Final Pleural Fluid Body Fluid Culture - Preliminary NO GROWTH AFTER 3 DAYS Lab Studies 08/22/17 08/22/17 08/22/17 Range/Units 11:44 06:36 06:36 WBC 17.0 H (4.8-10.8) K/uL RBC 3.70 L (4.40-5.90) Mil/uL Hgb 8.5 L (12.0-18.0) g/dL Hct 27.5 L (35.0-51.0) % MCV 74.3 L (80.0-94.0) fL MCH 22.9 L (27.0-31.0) pg MCHC 30.8 L (33.0-37.0) g/dL RDW 22.3 H (11.5-14.5) % Plt Count 495 H D (130-400) K/uL MPV 8.8 (7.2-11.7) fL Puncture Site pCO2 (35-45) mm/Hg pO2 (80-100) mm/Hg HCO3 (21-28) mmol/L ABG pH (7.35-7.45) ABG Total CO2 (22-28) mmol/L ABG O2 Saturation (95-98) % ABG Base Excess (-2.0-3.0) mmol/L ABG Hemoglobin (11.7-17.4) g/dL ABG Carboxyhemoglobin (0.5-1.5) % POC ABG HHb (Measured) (0.0-5.0) % ABG Methemoglobin (0.0-3.0) % Uriel Test A-a O2 Difference mm/Hg Respiratory Index Hgb O2 Saturation (95.0-98.0) % Vent Mode Mechanical Rate FiO2 % Tidal Volume PEEP Sodium 138 (132-148) mmol/L Potassium 5.0 (3.6-5.2) mmol/L Chloride 97 L (98-107) mmol/L Carbon Dioxide 23 (22-30) mmol/L Anion Gap 23 H (10-20) BUN 103 H* D (9-20) mg/dL Creatinine 7.0 H (0.8-1.5) MG/DL Est GFR ( Amer) 9 Est GFR (Non-Af Amer) 8 POC Glucose (mg/dL) 286 H (65-110) mg/dL Random Glucose 269 H (75-110) mg/dL Calcium 8.5 L (8.6-10.4) mg/dl Phosphorus 9.5 H (2.5-4.5) mg/dL Magnesium 3.4 H (1.6-2.3) mg/dL Total Bilirubin 0.8 (0.2-1.3) mg/dL AST 55 (17-59) U/L ALT 70 (21-72) U/L Alkaline Phosphatase 171 H (38-126) U/L Total Protein 7.0 (6.3-8.3) g/dL Albumin 3.4 L (3.5-5.0) g/dL Globulin 3.6 (2.2-3.9) gm/dL Albumin/Globulin Ratio 0.9 L (1.0-2.1) 08/22/17 08/22/17 08/22/17 Range/Units 06:03 05:15 00:10 WBC (4.8-10.8) K/uL RBC (4.40-5.90) Mil/uL Hgb (12.0-18.0) g/dL Hct (35.0-51.0) % MCV (80.0-94.0) fL MCH (27.0-31.0) pg MCHC (33.0-37.0) g/dL RDW (11.5-14.5) % Plt Count (130-400) K/uL MPV (7.2-11.7) fL Puncture Site Rradial pCO2 41 (35-45) mm/Hg pO2 61 L (80-100) mm/Hg HCO3 25.2 (21-28) mmol/L ABG pH 7.40 (7.35-7.45) ABG Total CO2 26.7 (22-28) mmol/L ABG O2 Saturation 94.1 L (95-98) % ABG Base Excess 0.5 (-2.0-3.0) mmol/L ABG Hemoglobin 9.2 L (11.7-17.4) g/dL ABG Carboxyhemoglobin 2.5 H (0.5-1.5) % POC ABG HHb (Measured) 5.7 H (0.0-5.0) % ABG Methemoglobin 0.4 (0.0-3.0) % Uriel Test Pos A-a O2 Difference 244.0 mm/Hg Respiratory Index 4.0 Hgb O2 Saturation 91.3 L (95.0-98.0) % Vent Mode Prvc Mechanical Rate 14 FiO2 50.0 % Tidal Volume 450 PEEP 6 Sodium (132-148) mmol/L Potassium (3.6-5.2) mmol/L Chloride (98-107) mmol/L Carbon Dioxide (22-30) mmol/L Anion Gap (10-20) BUN (9-20) mg/dL Creatinine (0.8-1.5) MG/DL Est GFR ( Amer) Est GFR (Non-Af Amer) POC Glucose (mg/dL) 321 H 265 H (65-110) mg/dL Random Glucose (75-110) mg/dL Calcium (8.6-10.4) mg/dl Phosphorus (2.5-4.5) mg/dL Magnesium (1.6-2.3) mg/dL Total Bilirubin (0.2-1.3) mg/dL AST (17-59) U/L ALT (21-72) U/L Alkaline Phosphatase (38-126) U/L Total Protein (6.3-8.3) g/dL Albumin (3.5-5.0) g/dL Globulin (2.2-3.9) gm/dL Albumin/Globulin Ratio (1.0-2.1) 08/21/17 Range/Units 17:54 WBC (4.8-10.8) K/uL RBC (4.40-5.90) Mil/uL Hgb (12.0-18.0) g/dL Hct (35.0-51.0) % MCV (80.0-94.0) fL MCH (27.0-31.0) pg MCHC (33.0-37.0) g/dL RDW (11.5-14.5) % Plt Count (130-400) K/uL MPV (7.2-11.7) fL Puncture Site pCO2 (35-45) mm/Hg pO2 (80-100) mm/Hg HCO3 (21-28) mmol/L ABG pH (7.35-7.45) ABG Total CO2 (22-28) mmol/L ABG O2 Saturation (95-98) % ABG Base Excess (-2.0-3.0) mmol/L ABG Hemoglobin (11.7-17.4) g/dL ABG Carboxyhemoglobin (0.5-1.5) % POC ABG HHb (Measured) (0.0-5.0) % ABG Methemoglobin (0.0-3.0) % Uriel Test A-a O2 Difference mm/Hg Respiratory Index Hgb O2 Saturation (95.0-98.0) % Vent Mode Mechanical Rate FiO2 % Tidal Volume PEEP Sodium (132-148) mmol/L Potassium (3.6-5.2) mmol/L Chloride (98-107) mmol/L Carbon Dioxide (22-30) mmol/L Anion Gap (10-20) BUN (9-20) mg/dL Creatinine (0.8-1.5) MG/DL Est GFR ( Amer) Est GFR (Non-Af Amer) POC Glucose (mg/dL) 274 H (65-110) mg/dL Random Glucose (75-110) mg/dL Calcium (8.6-10.4) mg/dl Phosphorus (2.5-4.5) mg/dL Magnesium (1.6-2.3) mg/dL Total Bilirubin (0.2-1.3) mg/dL AST (17-59) U/L ALT (21-72) U/L Alkaline Phosphatase (38-126) U/L Total Protein (6.3-8.3) g/dL Albumin (3.5-5.0) g/dL Globulin (2.2-3.9) gm/dL Albumin/Globulin Ratio (1.0-2.1) Laboratory Results - last 24 hr 08/21/17 08/22/17 08/22/17 17:54 00:10 05:15 WBC RBC Hgb Hct MCV MCH MCHC RDW Plt Count MPV Puncture Site Rradial pCO2 41 pO2 61 L HCO3 25.2 ABG pH 7.40 ABG Total CO2 26.7 ABG O2 Saturation 94.1 L ABG Base Excess 0.5 ABG Hemoglobin 9.2 L ABG Carboxyhemoglobin 2.5 H POC ABG HHb (Measured) 5.7 H ABG Methemoglobin 0.4 Uriel Test Pos A-a O2 Difference 244.0 Respiratory Index 4.0 Hgb O2 Saturation 91.3 L Vent Mode Prvc Mechanical Rate 14 FiO2 50.0 Tidal Volume 450 PEEP 6 Sodium Potassium Chloride Carbon Dioxide Anion Gap BUN Creatinine Est GFR ( Amer) Est GFR (Non-Af Amer) POC Glucose (mg/dL) 274 H 265 H Random Glucose Calcium Phosphorus Magnesium Total Bilirubin AST ALT Alkaline Phosphatase Total Protein Albumin Globulin Albumin/Globulin Ratio 08/22/17 08/22/17 08/22/17 06:03 06:36 06:36 WBC 17.0 H RBC 3.70 L Hgb 8.5 L Hct 27.5 L MCV 74.3 L MCH 22.9 L MCHC 30.8 L RDW 22.3 H Plt Count 495 H D MPV 8.8 Puncture Site pCO2 pO2 HCO3 ABG pH ABG Total CO2 ABG O2 Saturation ABG Base Excess ABG Hemoglobin ABG Carboxyhemoglobin POC ABG HHb (Measured) ABG Methemoglobin Uriel Test A-a O2 Difference Respiratory Index Hgb O2 Saturation Vent Mode Mechanical Rate FiO2 Tidal Volume PEEP Sodium 138 Potassium 5.0 Chloride 97 L Carbon Dioxide 23 Anion Gap 23 H BUN 103 H* D Creatinine 7.0 H Est GFR ( Amer) 9 Est GFR (Non-Af Amer) 8 POC Glucose (mg/dL) 321 H Random Glucose 269 H Calcium 8.5 L Phosphorus 9.5 H Magnesium 3.4 H Total Bilirubin 0.8 AST 55 ALT 70 Alkaline Phosphatase 171 H Total Protein 7.0 Albumin 3.4 L Globulin 3.6 Albumin/Globulin Ratio 0.9 L 08/22/17 11:44 WBC RBC Hgb Hct MCV MCH MCHC RDW Plt Count MPV Puncture Site pCO2 pO2 HCO3 ABG pH ABG Total CO2 ABG O2 Saturation ABG Base Excess ABG Hemoglobin ABG Carboxyhemoglobin POC ABG HHb (Measured) ABG Methemoglobin Uriel Test A-a O2 Difference Respiratory Index Hgb O2 Saturation Vent Mode Mechanical Rate FiO2 Tidal Volume PEEP Sodium Potassium Chloride Carbon Dioxide Anion Gap BUN Creatinine Est GFR ( Amer) Est GFR (Non-Af Amer) POC Glucose (mg/dL) 286 H Random Glucose Calcium Phosphorus Magnesium Total Bilirubin AST ALT Alkaline Phosphatase Total Protein Albumin Globulin Albumin/Globulin Ratio Fingerstick Blood Sugar Results: 286 Review of Systems - Review of Systems Review of Systems: unable to evaluate due to intubation and inability to verbally respond Critical Care Progress Note - Ventilator Checklist Head of Bed 30 Degrees: Yes PUD Prophalyxis: Yes DVT Prophylaxis: Yes - Vent Settings MODE:: PRVC TIDAL VOLUME:: 450 RESP RATE:: 14 FIO2:: 50 PEEP:: 6 - Extremities/Vascular Does the Patient have a Central Venous Catheter?: Yes Insertion Site: Internal Jugular Vein (Right IJ) Does the Patient need a Central Venous Catheter?: Yes Does the Patient have a Sanchez Catheter?: Yes Does the Patient need a Sanchez Catheter?: Yes Catheter Insertion Criteria: Need for accurate measurement of output in critically ill patient - Prophylaxis GI Prophylaxis GI: Pepsid - Prophylaxis DVT Prophylaxis DVT: Lovenox - Nutrition Nutrition: Nutrition Category Date Time Status NPO Diet [DIET] Diets 08/21/17 Dinner Active Assessment/Plan - Assessment and Plan (Free Text) Assessment: 77 year old male admitted to ICU on 08/10 from hospital floors, patient was to get a CT scan and had respiratory distress, code blue was called and patient was transferred to ICU and intubated. Patient developed ARDS requiring high PEEP (14) and severe sepsis from pneumonia on antibiotics. Today 08/22/17: Patient will be receiving tracheostomy placement as well as Permacath placement for hemodialysis access Plan: Neuro: no acute issues - Versed 2 mg IV prn for anxiety Pulm: Acute respiratory failure in severe ARDS, intubated. - 08/19 CT chest showed large right pleural effusion. Right sided pigtail was placed. - Tracheostomy per general surgery today 08/22 - Duoneb 3 ml Q4 CV: NSTEMI - Plavix discontinued due to stent being placed >1 year ago. - ASA 81 mg PO daily - Dobutamine 500 mg IV Q24 - Lopressor 25 mg PO BID - Crestor 10 mg PO HS Heme: h/o anemia, DVT - 08/09 Lower extremitie doppler negative for DVTs bilaterally - ASA 81 mg PO daily - Lovenox 30 mg SC daily - Hold Eliquus Renal: ALIREZA - Continue aggressive HD (MWF) - General surgery consulted for Permacath placement for HD access, possibly today during Tracheostomy, help appreciated. Endo: DM type 2 - ISS- High dose protocol - Levemir 16 U SC Q12 GI: no acute issues ID: severe sepsis from pneumonia - 08/19 Sputum: no growth - 08/18 Urine Cx: no growth - Cefepime 1 gm daily: Day 4 (started on 08/19) Prophylaxis DVT: Lovenox 30 mg SC daily GI: pepcid 20 mg PO daily, Lactobacillus 1 cap PO BID Acetaminophen 650 mg PO prn Sanchez for strict I/O's during acute illness Code status - full code
--- NOTE | 2017-08-22 18:41 | CP.PCM.PN ---
<Darryl Roe - Last Filed: 08/22/17 18:39> Subjective - Date & Time of Evaluation Date of Evaluation: 08/22/17 Time of Evaluation: 10:45 - Subjective Subjective: Cardiology Progress Note- Dr. Cortés's service Patient seen and examined and minimally responsive at this time. No acute events per nursing. Patient intubated but not on sedation. Patient for trach procedure today. Patient not able to respond to ROS at this time due to his status. Objective - Vital Signs/Intake and Output Vital Signs (last 24 hours): Temp Pulse Resp BP Pulse Ox 98.8 F 86 28 H 106/52 L 95 08/22/17 12:00 08/22/17 13:49 08/22/17 13:49 08/22/17 13:49 08/22/17 13:49 Intake and Output: 08/22/17 08/22/17 06:59 18:59 Intake Total 300 10 Output Total 45 80 Balance 255 -70 - Medications Medications: Current Medications Acetaminophen (Tylenol 650mg/20.3ml Solution Ud) 650 mg PO Q6 PRN PRN Reason: Temperature Last Admin: 08/19/17 12:11 Dose: 650 mg Albuterol/Ipratropium (Duoneb 3 Mg/0.5 Mg (3 Ml) Ud) 3 ml INH RQ4 [facility] Last Admin: 08/22/17 11:27 Dose: 3 ml Aspirin (Aspirin Chewable) 81 mg PO DAILY [facility] Last Admin: 08/22/17 10:09 Dose: Not Given Enoxaparin Sodium (Lovenox) 30 mg SC DAILY [facility] Last Admin: 08/22/17 10:00 Dose: Not Given Epoetin Chencho (Procrit) 10,000 unit IV MWF [facility] Last Admin: 08/19/17 18:36 Dose: 10,000 unit Famotidine (Pepcid) 20 mg PO DAILY [facility] Last Admin: 08/22/17 10:03 Dose: 20 mg Cefepime HCl 1 gm/ Dextrose 50 mls @ 100 mls/hr IVPB Q24H [facility] Last Admin: 08/22/17 14:50 Dose: 50 mls Dobutamine HCl/Dextrose (Dobutamine/Dextrose 5% 500mg/250ml) 500 mg in 250 mls @ 7.02 mls/hr IV .Q24H [facility] FERNANDO; 2.5 MCG/KG/MIN PRN Reason: Protocol Last Titration: 08/22/17 08:40 Dose: 0 mcg/kg/min, 0 mls/hr Insulin Aspart (Novolog) 0 unit SC Q6 [facility] FERNANDO PRN Reason: Protocol Last Admin: 08/22/17 12:18 Dose: Not Given Insulin Detemir (Levemir) 16 unit SC Q12H [facility]ERNANDO Last Admin: 08/22/17 09:01 Dose: Not Given Lactobacillus Acidophilus (Bacid Acidophilus) 1 cap PO BID [facility]ERNANDO Last Admin: 08/22/17 10:03 Dose: 1 cap Metoprolol Tartrate (Lopressor) 50 mg PO BID [facility] Last Admin: 08/22/17 10:03 Dose: 50 mg Midazolam HCl (Versed Inj) 2 mg IVP Q3H PRN PRN Reason: Agitation Last Admin: 08/22/17 08:01 Dose: 2 mg Rosuvastatin Calcium (Crestor) 10 mg PO HS [facility] Last Admin: 08/21/17 21:48 Dose: 10 mg - Labs Labs: 08/22/17 06:36 08/22/17 06:36 PT 13.0 SECONDS (9.7-12.2) H 08/09/17 23:23 INR 1.2 08/09/17 23:23 APTT 55 SECONDS (21-34) H D 08/17/17 06:12 - Constitutional Appears: Non-toxic, No Acute Distress - Head Exam Head Exam: ATRAUMATIC, NORMAL INSPECTION, NORMOCEPHALIC - Eye Exam Eye Exam: EOMI, Normal appearance, PERRL - ENT Exam ENT Exam: Mucous Membranes Moist - Neck Exam Neck Exam: Full ROM - Respiratory Exam Respiratory Exam: NORMAL BREATHING PATTERN - Cardiovascular Exam Cardiovascular Exam: +S1, +S2 - GI/Abdominal Exam GI & Abdominal Exam: Soft - Extremities Exam Extremities Exam: Full ROM - Neurological Exam Neurological Exam: absent: Alert - Psychiatric Exam Psychiatric exam: Normal Affect, Normal Mood - Skin Skin Exam: Dry, Normal Color Assessment and Plan (1) Chest pain Status: Acute (2) CHF exacerbation Status: Chronic (3) Pneumonia Status: Acute (4) CAD (coronary artery disease) Status: Acute (5) HTN (hypertension) Status: Chronic (6) CKD (chronic kidney disease) Status: Acute (7) Diabetes mellitus Status: Chronic (8) HLD (hyperlipidemia) Status: Chronic (9) Constipation Status: Chronic (10) Anemia Status: Chronic (11) History of DVT (deep vein thrombosis) Status: Acute (12) Prophylactic measure Status: Acute - Assessment and Plan (Free Text) Assessment: CAD, chest pain -No plans for cardiac cath at this time (acute respiratory failure and elevated Cr), history of abnormal stress test -Elevated Troponin likely due to chest compressions during cardiac arrest 08/10 -No acute ST changes on EKG -Continue heparin drip, ASA, Plavix, Crestor, Metoprolol -Echocardiogram from 08/08/17 showed left ventricle systolic function is severely impaired. EF: 25-30%; global hypokinesis of LV mild AR. MR is moderate. Moderate-severe pulmonary hypertension -Recommend prophylaxis lovenox Systolic CHF exacerbation -BNP 19827 on 08/06/17 -Continue ASA, Plavix, Crestor, Metoprolol -Echocardiogram from 08/08/17 showed left ventricle systolic function is severely impaired. EF: 25-30%; global hypokinesis of LV mild AR. MR is moderate. Moderate-severe pulmonary hypertesnion -Start dobutamine Prophylaxis -Pepcid 20 mg PO daily -Lovenox 30 SC daily <Sina Cortés - Last Filed: 08/22/17 21:43> Objective - Vital Signs/Intake and Output Vital Signs (last 24 hours): Temp Pulse Resp BP Pulse Ox 98.7 F 86 15 128/42 L 94 L 08/22/17 20:00 08/22/17 19:31 08/22/17 19:31 08/22/17 19:31 08/22/17 19:31 Intake and Output: 08/22/17 08/23/17 18:59 06:59 Intake Total 10 Output Total 76 6 Balance -66 -6 - Medications Medications: Current Medications Acetaminophen (Tylenol 650mg/20.3ml Solution Ud) 650 mg PO Q6 PRN PRN Reason: Temperature Last Admin: 08/19/17 12:11 Dose: 650 mg Albuterol/Ipratropium (Duoneb 3 Mg/0.5 Mg (3 Ml) Ud) 3 ml INH RQ4 [facility] Last Admin: 08/22/17 11:27 Dose: 3 ml Aspirin (Aspirin Chewable) 81 mg PO DAILY [facility] Last Admin: 08/22/17 10:09 Dose: Not Given Enoxaparin Sodium (Lovenox) 30 mg SC DAILY [facility] Last Admin: 08/22/17 10:00 Dose: Not Given Epoetin Chencho (Procrit) 10,000 unit IV MWF [facility] Last Admin: 08/19/17 18:36 Dose: 10,000 unit Famotidine (Pepcid) 20 mg PO DAILY [facility] Last Admin: 08/22/17 10:03 Dose: 20 mg Cefepime HCl 1 gm/ Dextrose 50 mls @ 100 mls/hr IVPB Q24H [facility] Last Admin: 08/22/17 14:50 Dose: 50 mls Insulin Aspart (Novolog) 0 unit SC Q6 [facility] PRN Reason: Protocol Last Admin: 08/22/17 18:57 Dose: 8 unit Insulin Detemir (Levemir) 16 unit SC Q12H [facility] Last Admin: 08/22/17 20:11 Dose: Not Given Lactobacillus Acidophilus (Bacid Acidophilus) 1 cap PO BID [facility] Last Admin: 08/22/17 18:46 Dose: Not Given Metoprolol Tartrate (Lopressor) 50 mg PO BID [facility] Last Admin: 08/22/17 18:47 Dose: Not Given Midazolam HCl (Versed Inj) 2 mg IVP Q3H PRN PRN Reason: Agitation Last Admin: 08/22/17 19:04 Dose: 2 mg Rosuvastatin Calcium (Crestor) 10 mg PO HS [facility] Last Admin: 08/21/17 21:48 Dose: 10 mg - Labs Labs: 08/22/17 06:36 08/22/17 06:36 PT 13.0 SECONDS (9.7-12.2) H 08/09/17 23:23 INR 1.2 08/09/17 23:23 APTT 55 SECONDS (21-34) H D 08/17/17 06:12 Assessment and Plan - Assessment and Plan (Free Text) Assessment: Patient seen and evaluated with the durable medical equipment repairer Plan fo care discussed and documentd as above
[2017-08-22] MEDS: DOBUTamine 500mg/250ml D5W 500 MG/250 ML BAG IV SCH (19:18)
--- NOTE | 2017-08-22 21:12 | CP.PCM.PN ---
Subjective - Date & Time of Evaluation Date of Evaluation: 08/22/17 Time of Evaluation: 18:25 - Subjective Subjective: Medical Attending Note: Patient seen, examined, and case discussed with ICU. Attempted to see patient earlier in the day; patient was in OR for trachestomy and permcath placement. Patient seen post OR approximately 6:20PM. Patient seen at bedside with present. Patient off sedation. Patient keeps turning his head. Patient instructed to stoop. Patient has mittens to prevent from remove trach tube. Instructed he cannot remove this tube given patient has prior hx of self- extubation during hospitalization. Patient has fresh trachoestomy site completed earlier today. Patient has blood over the area but assessed with patient's nurse, Nabil, blood is clotted around the site. Instructed at bedside, she sees more blood to let staff know. Patient's prior dialysis site wrapped in bandage, required compression due to bleeding per discussion with ICU charge nurse, Dario and patient's primary nurse, Nabil. Will monitor the site. No bleeding per my exam. Unable to ROS secondary to patient's clinical condition. Objective - Vital Signs/Intake and Output Vital Signs (last 24 hours): Temp Pulse Resp BP Pulse Ox 98.2 F 86 15 128/42 L 94 L 08/22/17 19:00 08/22/17 19:31 08/22/17 19:31 08/22/17 19:31 08/22/17 19:31 Intake and Output: 08/22/17 08/23/17 18:59 06:59 Intake Total 10 Output Total 76 6 Balance -66 -6 - Medications Medications: Current Medications Acetaminophen (Tylenol 650mg/20.3ml Solution Ud) 650 mg PO Q6 PRN PRN Reason: Temperature Last Admin: 08/19/17 12:11 Dose: 650 mg Albuterol/Ipratropium (Duoneb 3 Mg/0.5 Mg (3 Ml) Ud) 3 ml INH RQ4 [facility] Last Admin: 08/22/17 11:27 Dose: 3 ml Aspirin (Aspirin Chewable) 81 mg PO DAILY [facility] Last Admin: 08/22/17 10:09 Dose: Not Given Enoxaparin Sodium (Lovenox) 30 mg SC DAILY [facility] Last Admin: 08/22/17 10:00 Dose: Not Given Epoetin Chencho (Procrit) 10,000 unit IV MWF [facility] Last Admin: 08/19/17 18:36 Dose: 10,000 unit Famotidine (Pepcid) 20 mg PO DAILY [facility] Last Admin: 08/22/17 10:03 Dose: 20 mg Cefepime HCl 1 gm/ Dextrose 50 mls @ 100 mls/hr IVPB Q24H [facility] Last Admin: 08/22/17 14:50 Dose: 50 mls Insulin Aspart (Novolog) 0 unit SC Q6 [facility] PRN Reason: Protocol Last Admin: 08/22/17 18:57 Dose: 8 unit Insulin Detemir (Levemir) 16 unit SC Q12H [facility] Last Admin: 08/22/17 20:11 Dose: Not Given Lactobacillus Acidophilus (Bacid Acidophilus) 1 cap PO BID [facility] Last Admin: 08/22/17 18:46 Dose: Not Given Metoprolol Tartrate (Lopressor) 50 mg PO BID [facility] Last Admin: 08/22/17 18:47 Dose: Not Given Midazolam HCl (Versed Inj) 2 mg IVP Q3H PRN PRN Reason: Agitation Last Admin: 08/22/17 19:04 Dose: 2 mg Rosuvastatin Calcium (Crestor) 10 mg PO HS [facility] Last Admin: 08/21/17 21:48 Dose: 10 mg - Labs Labs: 08/22/17 06:36 08/22/17 06:36 PT 13.0 SECONDS (9.7-12.2) H 08/09/17 23:23 INR 1.2 08/09/17 23:23 APTT 55 SECONDS (21-34) H D 08/17/17 06:12 - Constitutional Appears: Combative, Agitated, Chronically Ill - Head Exam Head Exam: NORMAL INSPECTION - Eye Exam Eye Exam: EOMI - ENT Exam ENT Exam: Mucous Membranes Moist Additional comments: tracheostomy-->dried clotting blood surrounding the site-->dressing to be changed by nurse - Respiratory Exam Respiratory Exam: Decreased Breath Sounds Additional comments: s/p trach on vent - Cardiovascular Exam Cardiovascular Exam: REGULAR RHYTHM, +S1, +S2 - GI/Abdominal Exam GI & Abdominal Exam: Soft, Normal Bowel Sounds Additional comments: no rebound, no guarding, obese habitus Left lower groin site: wrapped in dressing; clean/dry/intact - Extremities Exam Extremities Exam: Pedal Edema (improved b/l) - Neurological Exam Neurological Exam: Alert Additional comments: moving all extremities - Psychiatric Exam Psychiatric exam: Agitated, Anxious - Skin Skin Exam: Dry, Normal Color, Warm Assessment and Plan - Assessment and Plan (Free Text) Assessment: (1) Acute Respiratory Failure ARDS Cardiac Arrest Pulmonary Edema NONSTEMI Assessment and Plan: * Code Blue on 08/10: asystole, cardiopulmonary resuscitative measures initiated , requiring 3 epis, bicarbonate, ROSC achieved and intubated and brought to the ICU for further management * 08/10: Central line placed by ICU; placed on tridil drip; heparin drip c/w * 08/11: Patient placed on Lasix IV. On heparin drip. No plans for cardiac cath at time time. Chest Xray (08/11/17): NG tube extending into the stomach. Endotracheal tube extending into the mild thoracic trachea. Left sided pacemaker. multiple overlying external wires and tubing, Moderate severe venous congestion with prominent confluent airspace opacities in the mid to lower lung zones with associated small to moderate bilateral pleural effusions. scattered nodular densities in both lungs. Cardiomegaly. Degenerative changes in the spine and shoulders. * 08/12: Chest xray (08/12/17): right basilar opacity. Small right pleural effusion. Lines and tubes unchanged.-->C/w Lasix. Discussed with Dr. Mena (pulm) , recommended for CT Chest w/o contrast for possible ARDS. increased peep 10 * 08/13: pending chest /abdomen xray for this morning; self-extubated and reintubated overnight; off tridil drip secondary to hypotension post intubation ; on heparin drip * CT Chest/Abdomen/Pelvis (08/13): moderate to large bilateral pleural effusions largeer on thr right associated with atelectasis at lower lobes. Nonspecific ground-glass opacities in the upper lobe new may be due to pulmonary vascular congestion. moderately cardiomegaly. No evidence of bowel obstruction. Moderately to markedly enlarged prostate. nonobstructing calculus at mid to lower pole left kidney. Gallstone without evidence of cholecystitis. Scattered diverticulosis without evidence of diverticulitis * Repeat CT Chest 08/18 showed moderate Bilateral Pleural Effusion associated with compressive consolidations. I spoke with Cardiothoracic Surgeon Dr. Lopez and he recommended bilateral pigtail catheters. ICU Team placed Right Chest Pigtail Catheter 08/19 and as only small amount of fluid was produced, Left Chest Pigtail Catheter was not placed. Pleural Fluid studies (Total Protein, LDH , Glucose, Cell count with diff, Gram Stain and Culture, pH) have been ordered . * Patient was planned for Tracheostomy 08/19/17 however due to his PEEP of 14 this is currently on hold. * 08/21: PEEP is down to 6. Tracheostomy is planned for 08/22 and Nurse Minal has been made aware to STOP Glucerna NG feeding after midnight * 08/22: s/p tracheostomy POD 0; aspirin and dvt ppx held today-->will need to follow-up with surgery to see when to restart these medications (2) Chest pain Assessment and Plan: * Cardiology (Dr. Cortés) on board-->help appreciated * All trops WNL; Troponin positive in light of CPR * EKG x2 = Sinus tachycardia notes with possible left atrial enlargement; no apparent T segment elevations in contiguous leads * Patient was Heparin Drip but this was discontinued 08/17/17 * Patient's cardiac catherization cancelled secondary to rise in creatinine (2.3 ) on 08/09/17. * Patient has hx of abnormal stress test. Discussed with cardiology and nephrology given change in Cr on 08/09. * Echocardiogram (08/08/17): left ventricle systolic function is severely impaired. EF: 25-30%; global hypokinesis of left ventricle mild aortic regurgitation. Mitral regurgitation is moderate. Moderate-severe pulmonary hypertesnion * Hx of ACID * Crestor 10mg POqHS * Metoprolol Succinate 50 mg PO 1x/day was placed on Hold 08/17/17 * Off Arb secondary to ARF * TSH: 1.16; T4: 1.53 * 08/22: held Aspirin 81mg PO daily and Plavix 75mg PO daily-->will need to follow-up with surgery when to restart medications 08/22 (3) Acute Systolic CHF exacerbation Assessment and Plan: * Cardiology Dr. Cortés is following * Transferred to the ICU on 08/10 following cardiac arrest and intubation. * Echocardiogram (08/08/17): left ventricular systolic function is severely impaired. EF: 25-30%; global hypokinesis of left ventricle mild aortic regurgitation. Mitral regurgitation is moderate. Moderate-severe pulmonary hypertension * Height of bed at 45 degrees, Strict ins and outs, monitor daily weights * Crestor 10mg POqHS * Metoprolol Succinate 50mg PO 1x/day was placed on Hold 08/17/17 * Off Arb secondary to ARF * Has been receiving HD 08/16/17 and 08/19/17 to help reduce the pulmonary congestion * Started on Dobutamine 2.5 mcg/kg/min 08/19/17-08/22/17 * 08/22: held Aspirin 81mg PO daily and Plavix 75mg PO daily-->will need to follow-up with surgery when to restart medications 08/22 Status: Acute (4) Pneumonia Assessment and Plan: * Pulmonary (Dr. Mena) on board-->help appreciated * Infectious Disease (Dr. Lawrence)-->help appreciated * Rapid A strep, Influenza A and B studies, Urine Legionella, Mycoplasma studies = Negative * Florastor 250mg PO bid * +Strep Pneumoniae in the urine * 08/12: Will repeat urine studies and exchange out the jaquez * Meropenem 500mg IV Q 8 hours ( 08/14/17 through 08/18/17) and Zosyn 2.25 mg IV Q6H (08/13/17 through 08/18/17) * 08/18: Chest X Ray shows scattered dense confluent pathcy areas of consolidative change seen throughout both lungs most prominent in left lung and right lung base * Sputum Culture 08/19/17 shows NO growth * Cefepime 1 gm IV Q24H (08/19/17) Status: Acute (5) CAD (coronary artery disease) Assessment and Plan: * Hx of cardiac stent in the past * Cardiac cath on hold given events on 08/10 Status: Acute (6) HTN (hypertension) Assessment and Plan: * Metoprolol XL 50 mg PO 1x/day Status: Chronic (7) CKD (chronic kidney disease) Assessment and Plan: * Dr. Miranda (nephrology) consulted on the case * Hx of CKD * GFR 45 which appears to be around baseline * Stopped ARB given rise in CR * Off IV fluids given pulmonary edema * Monitor in and output: has not been producing significant amount of urine and HD was recommended by Nephrology * Receiving HD through Left Femoral Catheter (last HD was 08/20/17) Status: Acute (8) Diabetes mellitus Assessment and Plan: * Accuchecks Q6H * A1c 8.4 * 08/20: Required 26 units on Aspart ISS from 4 AM 08/19/17 through 4 AM 08/20/17 therefore half of this was added to total Levemir dose. Levemir now is 16 Units SC Q12H * Insulin Aspart ISS Q6H * 08/21: Patient required 32 units on Aspart ISS from 4 AM 08/20/17 through 4 AM . Was going to increase the Levemir dose to 32 units, however patient will be NPO after midnight 08/21/17 therefore this was not done. Status: Chronic (9) HLD (hyperlipidemia) Assessment and Plan: * On Crestor 10 mg PO HS Status: Chronic (10) Constipation Assessment and Plan: * Having bowel movements per nursing notes (08/14/17) * Senokot 50/8.6 1 tab PO 2x/day * 08/12: Will given ducolax suppository X1 * 08/13: has not had bowel movement; ordered for abdominal/chest xray in light of abdominal distension * CT Chest/Abdomen/Pelvis (08/13): moderate to large bilateral pleural effusions largeer on thr right associated with atelectasis at lower lobes. Nonspecific ground-glass opacities in the upper lobe new may be due to pulmonary vascular congestion. moderately cardiomegaly. No evidence of bowel obstruction. Moderately to markedly enlarged prostate. nonobstructing calculus at mid to lower pole left kidney. Gallstone without evidence of cholecystitis. Scattered diverticulosis without evidence of diverticulitis * 08/14: Patient is not obstructed per review CT scan * 08/19: He is moving his bowels as of 08/19/17 but the Senokot was placed on hold has the movements have been very soft * 08/21: patient is having normal bowel movements as per Nurse Fontaine Status: Chronic (11) Anemia Assessment and Plan: * Heme-oncology (Dr. Giles bender) on board-->help appreciated * Likely iron deficiency anemia based on prior admissions * Ferritin 27.4, Iron 22, TIBC 322, % Saturation 7 * Ferric Sodium Gluconate 125mg IVPB daily (active 08/08-08/16) * Procrit 10,000 units M-W-F * Monitor Hgb/Hct: stable Status: Chronic (12) History of DVT (deep vein thrombosis) Assessment and Plan: * Patient was previously on Eliquis for a prior history of DVT. * Repeat dopplers 08/09/17 are negative for DVT * Off Heparin Drip 08/17/17 Status: Acute (13) UTI * Infectious disease (Dr. Lawrence) on board-->help appreciated * Exchange jaquez out and repeat urine cultures * Urine Culture 08/12/17 showed Gram Negative Rods: NO identification and NO sensitivities were performed * Meropenem 500mg IV Q 12hours (active since 08/14/17 through 08/18/17) to cover for UTI per ID * Repeat Urine Culture 08/18/17 shows NO growth (14) Confusion; Alzheimer's Dementia Assessment and Plan: * Per daughter, patient has been getting bouts of confusion over the past year but appears at baseline. Patient has not seen formal neurology as outpatient per daughter. Per , prior to event, noted Alzheimers' disease dx one year ago * CT head w/o contrast (08/10/17):acute os subacute lacune infarct is not excluded in the left basal ganglia inferiorly with definitive chronic lacune identified in the right basal ganglia superiorly. No acute or subacute lobar brain infarction is appreciable by standard CT criteria. Mild age-related neuro degenerative changes are identifed. No acute intracranial hemorrhage or mass is identified throughout * 08/11: Patient gets agitated and will fight to pull the intubation tube out per nursing. Was placed on sedation and Ativan PRN * 08/12: patient is responsive to questions, able to move all extremities, off sedation. Patient is on PRN Versed and Ativan PRN. Will respond to yes and no questions * 08/13: Back on sedation since reintubation; patient is moving all extremities * 08/18: Versed 2 mg IV Q3H PRN Anxiety (15) Prophylactic measure Assessment and Plan: * Pepcid 20mg PO daily * held Lovenox 30 mg SC 1x/day secondary to OR 08/22-->f/u when to restart anticoagulation * Bacid 1 cap NGT 2x/day * Atrovent Q6H PRN * Tylenol 650 mg PO Q6H PRN Temperature * Albumin 25% 12.5 gm IV Q2H x 3 doses on 08/18/17 and 08/19/17 * s/p trachesostomy 08/22 * s/p Permcath placement 08/22 removal Kurtis catheter * s/p right posterior chest tube 08/19
--- NOTE | 2017-08-22 21:29 | CP.PCM.PN ---
Subjective - Date & Time of Evaluation Date of Evaluation: 08/22/17 Time of Evaluation: 04:40 - Subjective Subjective: dictated Objective - Vital Signs/Intake and Output Vital Signs (last 24 hours): Temp Pulse Resp BP Pulse Ox 98.2 F 86 15 128/42 L 94 L 08/22/17 19:00 08/22/17 19:31 08/22/17 19:31 08/22/17 19:31 08/22/17 19:31 Intake and Output: 08/22/17 08/23/17 18:59 06:59 Intake Total 10 Output Total 76 6 Balance -66 -6 - Medications Medications: Current Medications Acetaminophen (Tylenol 650mg/20.3ml Solution Ud) 650 mg PO Q6 PRN PRN Reason: Temperature Last Admin: 08/19/17 12:11 Dose: 650 mg Albuterol/Ipratropium (Duoneb 3 Mg/0.5 Mg (3 Ml) Ud) 3 ml INH RQ4 [facility] Last Admin: 08/22/17 11:27 Dose: 3 ml Aspirin (Aspirin Chewable) 81 mg PO DAILY [facility] Last Admin: 08/22/17 10:09 Dose: Not Given Enoxaparin Sodium (Lovenox) 30 mg SC DAILY [facility] Last Admin: 08/22/17 10:00 Dose: Not Given Epoetin Chencho (Procrit) 10,000 unit IV MWF [facility] Last Admin: 08/19/17 18:36 Dose: 10,000 unit Famotidine (Pepcid) 20 mg PO DAILY [facility] Last Admin: 08/22/17 10:03 Dose: 20 mg Cefepime HCl 1 gm/ Dextrose 50 mls @ 100 mls/hr IVPB Q24H [facility] Last Admin: 08/22/17 14:50 Dose: 50 mls Insulin Aspart (Novolog) 0 unit SC Q6 [facility] PRN Reason: Protocol Last Admin: 08/22/17 18:57 Dose: 8 unit Insulin Detemir (Levemir) 16 unit SC Q12H [facility] Last Admin: 08/22/17 20:11 Dose: Not Given Lactobacillus Acidophilus (Bacid Acidophilus) 1 cap PO BID [facility] Last Admin: 08/22/17 18:46 Dose: Not Given Metoprolol Tartrate (Lopressor) 50 mg PO BID [facility] Last Admin: 08/22/17 18:47 Dose: Not Given Midazolam HCl (Versed Inj) 2 mg IVP Q3H PRN PRN Reason: Agitation Last Admin: 08/22/17 19:04 Dose: 2 mg Rosuvastatin Calcium (Crestor) 10 mg PO HS [facility] Last Admin: 08/21/17 21:48 Dose: 10 mg - Labs Labs: 08/22/17 06:36 08/22/17 06:36 PT 13.0 SECONDS (9.7-12.2) H 08/09/17 23:23 INR 1.2 08/09/17 23:23 APTT 55 SECONDS (21-34) H D 08/17/17 06:12
--- NOTE | 2017-08-23 00:41 | PN ---
INFECTIOUS DISEASE FOLLOWUP DATE: SUBJECTIVE: The patient is remains on trach vent now. PHYSICAL EXAMINATION: VITAL SIGNS: T-max is 98.8, pulse 86, respirations are 28, blood pressure 106/52, and saturation 95%. HEENT: Head is atraumatic, normocephalic. Trach is present. NECK: Supple. LUNGS: Clear. Decreased breath sounds on both bases. HEART: S1 and S2 is regular. ABDOMEN: Soft and nontender. EXTREMITIES: Venodyne boots on. LABORATORY DATA: White count today is 17, hemoglobin 8.5, hematocrit 27.5, platelet count is 495. MEDICATIONS: He is on cefepime 1 g daily, as he has renal insufficiency and on lactobacillus. Vitals, there is no temp reported. ASSESSMENT AND PLAN: The patient's white count still remains around 17. His kidney function show creatinine 7.0, is in renal failure and he had a Perm-A-Cath, now they have put a new Perm-A-Cath also today hence they will be removing the left groin Perm-A-Cath and he remains in respiratory failure status post trach and with renal insufficiency and is status post cardiopulmonary arrest. Allan Lawrence MD
--- NOTE | 2017-08-23 03:11 | OP ---
PROCEDURE DATE: 08/22/2017 PREOPERATIVE DIAGNOSES: Respiratory and renal failure. POSTOPERATIVE DIAGNOSES: Respiratory and renal failure. PROCEDURE: Percutaneous tracheostomy and tube insertion of Perm-A-Cath in the right subclavian vein. SURGEON: Cooper Forbes Jr., MD GENERAL ACCOUNTANT: Dr. Austin, resident. TYPE OF ANESTHESIA: General. ANESTHESIA ADMINISTERED BY: Frankie Mullen MD INDICATIONS: The patient is an elderly man on dialysis who also has respiratory failure. OPERATIVE FINDINGS: Carrying out bronchoscopy at the same time as the tracheostomy was carried out. We were able to visualize the needle entering the anterior surface of the trachea and then placed a dilator for placing #8 tracheostomy tube into the trachea, which was secured to the skin with silk sutures as well as cuff. After this had been carried out, we then reprepped and redraped, we went to the subclavian position. The patient had a pacemaker on the left side and indwelling internal jugular intravenous triple lumen catheter and because of this that is why we went subclavian. We are unable to use ultrasound as the vein was too deep; however, using anatomic landmarks and micropuncture technique, we punctured it, exchanged this with appropriate wires, dilated over this and terminated the procedure. It was flushed with heparinized saline with good return. The operation carried out with placement of Perm-A-Cath in right subclavian vein and percutaneous tracheostomy. Cooper Forbes Jr., MD
[2017-08-23] MEDS: Midazolam 2 MG/2 ML VIAL IVP PRN (04:03)
[2017-08-23] MEDS: (Novolog) Insulin Aspart, Recombinant 100 u/ml 10 ml vial SC SCH ×4 (06:30→19:35)
[2017-08-23 06:34] LABS: BASO # 0.1 K/uL (0.0-0.2); BASO % 0.6 % (0.0-2.0); EOS # 0.8 K/uL (0.0-0.7); EOS % 4.3 % (0.0-4.0); HEMATOCRIT 27.8 % (35.0-51.0); LYMPH # 1.1 K/uL (1.0-4.3); LYMPH % 6.2 % (20.0-40.0); MEAN CELL VOLUME 74.7 fL (80.0-94.0); MEAN CORPUSCULAR HEMOGLOBIN 23.5 pg (27.0-31.0); MEAN CORPUSCULAR HGB CONC 31.4 g/dL (33.0-37.0); MEAN PLATELET VOLUME 8.4 fL (7.2-11.7); MONO # 1.1 K/uL (0.0-0.8); PLATELET COUNT 566 K/uL (130-400); RED CELL DISTRIBUTION WIDTH 21.5 % (11.5-14.5); WHITE BLOOD COUNT 17.8 K/uL (4.8-10.8)
[2017-08-23 06:44] LABS: POTASSIUM 5.8 mmol/L (3.6-5.2)
[2017-08-23 06:46] LABS: BILIRUBIN,TOTAL 0.8 mg/dL (0.2-1.3)
[2017-08-23 06:47] LABS: ALB/GLOB RATIO 0.9 (1.0-2.1); CALCIUM 8.7 mg/dl (8.6-10.4); MAGNESIUM 3.8 mg/dL (1.6-2.3); PHOSPHOROUS 12.1 mg/dL (2.5-4.5)
--- NOTE | 2017-08-23 07:47 | CP.PCM.PN ---
Subjective - Date & Time of Evaluation Date of Evaluation: 08/23/17 Time of Evaluation: 07:00 - Subjective Subjective: General Surgery progress note for Dr. Forbes Pt seen and examined at bedside. Patient tolerating tracheostomy. Full ROS was not obtained due to his current status. Objective - Vital Signs/Intake and Output Vital Signs (last 24 hours): Temp Pulse Resp BP Pulse Ox 98.7 F 86 15 128/42 L 94 L 08/22/17 20:00 08/22/17 19:31 08/22/17 19:31 08/22/17 19:31 08/22/17 19:31 Intake and Output: 08/23/17 08/23/17 06:59 18:59 Output Total 81 Balance -81 - Medications Medications: Current Medications Acetaminophen (Tylenol 650mg/20.3ml Solution Ud) 650 mg PO Q6 PRN PRN Reason: Temperature Last Admin: 08/19/17 12:11 Dose: 650 mg Albuterol/Ipratropium (Duoneb 3 Mg/0.5 Mg (3 Ml) Ud) 3 ml INH RQ4 [facility] Last Admin: 08/22/17 11:27 Dose: 3 ml Aspirin (Aspirin Chewable) 81 mg PO DAILY [facility] Last Admin: 08/22/17 10:09 Dose: Not Given Enoxaparin Sodium (Lovenox) 30 mg SC DAILY [facility] Last Admin: 08/22/17 10:00 Dose: Not Given Epoetin Chencho (Procrit) 10,000 unit IV MWF [facility] Last Admin: 08/19/17 18:36 Dose: 10,000 unit Famotidine (Pepcid) 20 mg PO DAILY [facility] Last Admin: 08/22/17 10:03 Dose: 20 mg Cefepime HCl 1 gm/ Dextrose 50 mls @ 100 mls/hr IVPB Q24H [facility] Last Admin: 08/22/17 14:50 Dose: 50 mls Insulin Aspart (Novolog) 0 unit SC Q6 [facility] PRN Reason: Protocol Last Admin: 08/23/17 06:30 Dose: 6 unit Insulin Detemir (Levemir) 16 unit SC Q12H [facility] Last Admin: 08/22/17 20:11 Dose: Not Given Lactobacillus Acidophilus (Bacid Acidophilus) 1 cap PO BID [facility] Last Admin: 08/22/17 18:46 Dose: Not Given Metoprolol Tartrate (Lopressor) 50 mg PO BID [facility] Last Admin: 08/22/17 18:47 Dose: Not Given Midazolam HCl (Versed Inj) 2 mg IVP Q3H PRN PRN Reason: Agitation Last Admin: 08/23/17 04:03 Dose: 2 mg Rosuvastatin Calcium (Crestor) 10 mg PO HS [facility] Last Admin: 08/22/17 21:57 Dose: Not Given - Labs Labs: 08/23/17 06:24 08/23/17 06:24 PT 13.0 SECONDS (9.7-12.2) H 08/09/17 23:23 INR 1.2 08/09/17 23:23 APTT 55 SECONDS (21-34) H D 08/17/17 06:12 - Constitutional Appears: No Acute Distress, Chronically Ill - Head Exam Head Exam: ATRAUMATIC, NORMAL INSPECTION, NORMOCEPHALIC - Neck Exam Additional comments: right subclavian permacath in place - Respiratory Exam Respiratory Exam: Decreased Breath Sounds. absent: Accessory Muscle Use Additional comments: tracheostomy in place - Cardiovascular Exam Cardiovascular Exam: REGULAR RHYTHM, RRR, +S1, +S2 - GI/Abdominal Exam GI & Abdominal Exam: Soft. absent: Distended - Extremities Exam Extremities Exam: Normal Inspection - Neurological Exam Neurological Exam: Altered - Skin Skin Exam: Intact, Normal Color, Warm Assessment and Plan - Assessment and Plan (Free Text) Assessment: 77 y/o M w/ respiratory failure 2/2 ARDs -s/p Tracheostomy POD 1 -s/p permacath placement right subclavian vein POD 1 -no further surgical intervention needed -continue tube feeds -continue medical management per ICU Pt discussed with Dr. Forbes
--- NOTE | 2017-08-23 08:07 | CP.PCM.CON ---
<Torsten Timmons - Last Filed: 08/23/17 09:34> History of Present Illness - History of Present Illness History of Present Illness: PGY5 GI Fellow Consult Note Patient is a 77yo male with PMHx significant for CAD, CHF, HTN, HLD, DM2, CKD, anemia and DVT with prior use of Eliquis who initially presented to the ED with SOB and chest pain. The patient was a poor historian on admission, having difficulty expressing what was wrong and understanding interventions explained to him. There was concern that he had undiagnosed underlying dementia. Since admission, he has been diagnosed with NSTEMI, acute systolic CHF exacerbation and pneumonia with B/L pleural effusions. Initial therapy was with diuresis and antibiotics. On day 4 of this admission, en route to CT scan, the patient suffered respiratory distress and asystole. Code blue was called and patient received chest compressions, 4 rounds of epinephrine with ROSC, was intubated and brought to the ICU for further care. His stay has been complicated by worsening of his CKD, which precluded cardiac catheterization. During his ICU stay, a right sided pigtail catheter has been placed to drain his pleural effusion. Yesterday, patient underwent tracheostomy. Our service has been consulted for PEG tube evaluation. At present, patient cannot participate in decision making in regards to his medical care given his clinical condition. No family at bedside presently. PMHx: See HPI PSHx: Ventral hernia repair, pacemaker placement, PCI FHx: per EMR; Mother - gynecologic malignancy; father - [place] Social: Denied tobacco, EtOH or illicit drug use Endo: No prior documented endoscopic evaluations Cannot perform 12 system ROS given clinical condition Review of Systems - Review of Systems Systems not reviewed;Unavailable: Acuity of Condition, Altered Mental Status Past Patient History - Infectious Disease Hx of Infectious Diseases: None - Past Medical History & Family History Past Medical History?: Yes - Past Social History Smoking Status: Never Smoked Alcohol: None Drugs: Denies Home Situation {Lives}: With Family - CARDIAC Hx Congestive Heart Failure: Yes Hx Hypercholesterolemia: Yes Hx Hypertension: Yes - PULMONARY Hx Asthma: Yes - RENAL Hx Chronic Kidney Disease: Yes (REANAL INSUFFICIENCY) Hx Kidney Stones: Yes - ENDOCRINE/METABOLIC Hx Diabetes Mellitus Type 2: Yes - MUSCULOSKELETAL/RHEUMATOLOGICAL Hx Arthritis: Yes - GENITOURINARY/GYNECOLOGICAL Hx Genitourinary Disorders: Yes Hx Prostate Problems: Yes (ELEVATED PSA) - PSYCHIATRIC Hx Anxiety: Yes Hx Depression: Yes Hx Substance Use: No - SURGICAL HISTORY Hx Surgeries: Yes Other/Comment: pacemaker on - ANESTHESIA Hx Anesthesia: Yes Hx Anesthesia Reactions: No Hx Malignant Hyperthermia: No Meds Allergies/Adverse Reactions: Allergies Allergy/AdvReac Type Severity Reaction Status Date / Time No Known Allergies Allergy Verified 08/06/17 13:20 - Medications Medications: Current Medications Acetaminophen (Tylenol 650mg/20.3ml Solution Ud) 650 mg PO Q6 PRN PRN Reason: Temperature Last Admin: 08/19/17 12:11 Dose: 650 mg Albuterol/Ipratropium (Duoneb 3 Mg/0.5 Mg (3 Ml) Ud) 3 ml INH RQ4 [facility] Last Admin: 08/22/17 11:27 Dose: 3 ml Aspirin (Aspirin Chewable) 81 mg PO DAILY [facility] Last Admin: 08/22/17 10:09 Dose: Not Given Enoxaparin Sodium (Lovenox) 30 mg SC DAILY [facility] Last Admin: 08/22/17 10:00 Dose: Not Given Epoetin Chencho (Procrit) 10,000 unit IV MWF [facility] Last Admin: 08/19/17 18:36 Dose: 10,000 unit Famotidine (Pepcid) 20 mg PO DAILY [facility] Last Admin: 08/22/17 10:03 Dose: 20 mg Cefepime HCl 1 gm/ Dextrose 50 mls @ 100 mls/hr IVPB Q24H [facility] Last Admin: 08/22/17 14:50 Dose: 50 mls Insulin Aspart (Novolog) 0 unit SC Q6 [facility]NA[facility] PRN Reason: Protocol Last Admin: 08/23/17 06:30 Dose: 6 unit Insulin Detemir (Levemir) 16 unit SC Q12H [facility] Last Admin: 08/22/17 20:11 Dose: Not Given Lactobacillus Acidophilus (Bacid Acidophilus) 1 cap PO BID [facility] Last Admin: 08/22/17 18:46 Dose: Not Given Metoprolol Tartrate (Lopressor) 50 mg PO BID [facility] Last Admin: 08/22/17 18:47 Dose: Not Given Midazolam HCl (Versed Inj) 2 mg IVP Q3H PRN PRN Reason: Agitation Last Admin: 08/23/17 04:03 Dose: 2 mg Rosuvastatin Calcium (Crestor) 10 mg PO HS [facility] Last Admin: 08/22/17 21:57 Dose: Not Given Physical Exam - Constitutional Appears: No Acute Distress, Chronically Ill - Eye Exam Additional comments: does not follow commands; PERRL - ENT Exam Additional comments: tracheostomy in place - Respiratory Exam Respiratory Exam: Rales. absent: Clear to Auscultation Bilateral, Rhonchi, Wheezes - Cardiovascular Exam Cardiovascular Exam: RRR, +S1, +S2 - GI/Abdominal Exam GI & Abdominal Exam: Distended, Normal Bowel Sounds, Soft. absent: Firm, Guarding, Organomegaly, Rigid, Tenderness - Neurological Exam Neurological exam: Alert, Oriented x3 - Psychiatric Exam Psychiatric exam: Normal Affect, Normal Mood - Skin Skin Exam: Dry, Warm Results - Vital Signs Recent Vital Signs: Last Vital Signs Temp 98.7 F 08/22/17 20:00 Pulse 86 08/22/17 19:31 Resp 15 08/22/17 19:31 BP 128/42 L 08/22/17 19:31 Pulse Ox 94 L 08/22/17 19:31 - Labs Result Diagrams: 08/23/17 06:24 08/23/17 06:24 Labs: Laboratory Results - last 24 hr 08/22/17 08/22/17 08/22/17 11:44 17:59 23:56 WBC RBC Hgb Hct MCV MCH MCHC RDW Plt Count MPV Neut % (Auto) Lymph % (Auto) Charlton % (Auto) Eos % (Auto) Baso % (Auto) Neut # Lymph # Charlton # Eos # Baso # Sodium Potassium Chloride Carbon Dioxide Anion Gap BUN Creatinine Est GFR ( Amer) Est GFR (Non-Af Amer) POC Glucose (mg/dL) 286 H 308 H 248 H Random Glucose Calcium Phosphorus Magnesium Total Bilirubin AST ALT Alkaline Phosphatase Total Protein Albumin Globulin Albumin/Globulin Ratio 08/23/17 08/23/17 08/23/17 05:36 06:24 06:24 WBC 17.8 H RBC 3.72 L Hgb 8.7 L Hct 27.8 L MCV 74.7 L MCH 23.5 L MCHC 31.4 L RDW 21.5 H Plt Count 566 H MPV 8.4 Neut % (Auto) 82.9 H Lymph % (Auto) 6.2 L Charlton % (Auto) 6.0 Eos % (Auto) 4.3 H Baso % (Auto) 0.6 Neut # 14.8 H Lymph # 1.1 Charlton # 1.1 H Eos # 0.8 H Baso # 0.1 Sodium 139 Potassium 5.8 H Chloride 97 L Carbon Dioxide 17 L Anion Gap 31 H BUN 121 H* Creatinine 8.5 H* D Est GFR ( Amer) 7 Est GFR (Non-Af Amer) 6 POC Glucose (mg/dL) 286 H Random Glucose 252 H Calcium 8.7 Phosphorus 12.1 H Magnesium 3.8 H Total Bilirubin 0.8 AST 46 ALT 64 Alkaline Phosphatase 168 H Total Protein 7.0 Albumin 3.4 L Globulin 3.6 Albumin/Globulin Ratio 0.9 L Assessment & Plan - Assessment and Plan (Free Text) Assessment: Patient is a 77yo male with PMHx significant for CAD, CHF, HTN, HLD, DM2, CKD, anemia and DVT with prior use of Eliquis who initially presented to the ED with SOB and chest pain. He has since suffered cardiopulmonary arrest and is s/p ACLS protocol with ROSC. Pt intubated and s/p tracheostomy. -Acute respiratory failure requiring mechanical ventilation -NSTEMI and cardiac arrest during this hospitalization -Pneumonia -B/L pleural effusions -Systolic CHF with acute exacerbation Plan: -Pt s/p tracheostomy yesterday -Patient will benefit from PEG placement -Request cardiology and pulmonology clearance for procedure, tentatively planned for pending clinical course -Will also require consent from family member as patient cannot consent currently - Date & Time Date: 08/23/17 Time: 06:45 <Migel Wills - Last Filed: 08/23/17 13:04> Meds - Medications Medications: Current Medications Acetaminophen (Tylenol 650mg/20.3ml Solution Ud) 650 mg PO Q6 PRN PRN Reason: Temperature Last Admin: 08/19/17 12:11 Dose: 650 mg Albuterol/Ipratropium (Duoneb 3 Mg/0.5 Mg (3 Ml) Ud) 3 ml INH RQ4 [facility] Last Admin: 08/22/17 11:27 Dose: 3 ml Aspirin (Aspirin Chewable) 81 mg PO DAILY [facility] Last Admin: 08/22/17 10:09 Dose: Not Given Enoxaparin Sodium (Lovenox) 30 mg SC DAILY [facility] Last Admin: 08/22/17 10:00 Dose: Not Given Epoetin Chencho (Procrit) 10,000 unit IV MWF [facility] Last Admin: 08/19/17 18:36 Dose: 10,000 unit Famotidine (Pepcid) 20 mg PO DAILY [facility] Last Admin: 08/23/17 12:20 Dose: Not Given Cefepime HCl 1 gm/ Dextrose 50 mls @ 100 mls/hr IVPB Q24H [facility] Last Admin: 08/22/17 14:50 Dose: 50 mls Insulin Aspart (Novolog) 0 unit SC Q6 [facility] PRN Reason: Protocol Last Admin: 08/23/17 06:30 Dose: 6 unit Insulin Detemir (Levemir) 16 unit SC Q12H [facility] Last Admin: 08/23/17 12:20 Dose: Not Given Lactobacillus Acidophilus (Bacid Acidophilus) 1 cap PO BID [facility] Last Admin: 08/23/17 12:19 Dose: Not Given Lorazepam (Ativan) 1 mg IVP Q2H PRN PRN Reason: Anxiety Metoprolol Tartrate (Lopressor) 50 mg PO BID [facility] Last Admin: 08/23/17 12:20 Dose: Not Given Rosuvastatin Calcium (Crestor) 10 mg PO HS [facility] Last Admin: 08/22/17 21:57 Dose: Not Given Results - Vital Signs Recent Vital Signs: Last Vital Signs Temp 97.8 F 08/23/17 10:15 Pulse 95 H 08/23/17 12:00 Resp 16 08/23/17 12:00 BP 110/45 L 08/23/17 12:00 Pulse Ox 96 08/23/17 12:00 - Labs Result Diagrams: 08/23/17 06:24 08/23/17 06:24 Labs: Laboratory Results - last 24 hr 08/22/17 08/22/17 08/23/17 17:59 23:56 05:36 WBC RBC Hgb Hct MCV MCH MCHC RDW Plt Count MPV Neut % (Auto) Lymph % (Auto) Charlton % (Auto) Eos % (Auto) Baso % (Auto) Neut # Lymph # Charlton # Eos # Baso # Neutrophils % (Manual) Band Neutrophils % Lymphocytes % (Manual) Monocytes % (Manual) Eosinophils % (Manual) Platelet Estimate Polychromasia Hypochromasia (manual) Anisocytosis (manual) Microcytosis (manual) Ovalocytes Sodium Potassium Chloride Carbon Dioxide Anion Gap BUN Creatinine Est GFR ( Amer) Est GFR (Non-Af Amer) POC Glucose (mg/dL) 308 H 248 H 286 H Random Glucose Calcium Phosphorus Magnesium Total Bilirubin AST ALT Alkaline Phosphatase Total Protein Albumin Globulin Albumin/Globulin Ratio 08/23/17 08/23/17 08/23/17 06:24 06:24 11:59 WBC 17.8 H RBC 3.72 L Hgb 8.7 L Hct 27.8 L MCV 74.7 L MCH 23.5 L MCHC 31.4 L RDW 21.5 H Plt Count 566 H MPV 8.4 Neut % (Auto) 82.9 H Lymph % (Auto) 6.2 L Charlton % (Auto) 6.0 Eos % (Auto) 4.3 H Baso % (Auto) 0.6 Neut # 14.8 H Lymph # 1.1 Charlton # 1.1 H Eos # 0.8 H Baso # 0.1 Neutrophils % (Manual) 88 H Band Neutrophils % 1 Lymphocytes % (Manual) 9 L Monocytes % (Manual) 1 Eosinophils % (Manual) 1 Platelet Estimate Increased H Polychromasia Slight Hypochromasia (manual) Slight Anisocytosis (manual) Moderate Microcytosis (manual) Slight Ovalocytes Slight Sodium 139 Potassium 5.8 H Chloride 97 L Carbon Dioxide 17 L Anion Gap 31 H BUN 121 H* Creatinine 8.5 H* D Est GFR ( Amer) 7 Est GFR (Non-Af Amer) 6 POC Glucose (mg/dL) 193 H Random Glucose 252 H Calcium 8.7 Phosphorus 12.1 H Magnesium 3.8 H Total Bilirubin 0.8 AST 46 ALT 64 Alkaline Phosphatase 168 H Total Protein 7.0 Albumin 3.4 L Globulin 3.6 Albumin/Globulin Ratio 0.9 L Attending/Attestation - Attestation I have personally seen and examined this patient.: Yes I have fully participated in the care of the patient.: Yes I have reviewed all pertinent clinical information: Yes Notes (Text): 08/23/17 12:57 I have seen and examined patient with GI fellow. Agree with above documentation with the following additions. In brief, this is a 77 year old male with history of CAD, CHF, DM, CKD, who initially presented to hospital with complaint of chest pain and dyspnea. His hospital course has been complicated by cardiac arrest, NSTEMI, pneumonia, CHF exacerbation. GI called for evaluation of possible gastrostomy tube placement. Patient is not able to participate in meaningful conversation, therefore additional information obtained via chart review, discussion with nursing staff and patient family member. Patient underwent tracheostomy yesterday and is not able to adequately consume meals properly without high risk of aspiration. There is no reported abdominal pain, nausea, vomiting, fever/chills, diarrhea. CAD CHF DM CKD, now with dialysis initiation Pneumonia Respiratory failure, s/p tracheostomy Dysphagia - NPO - Continue with antibiotic therapy - Ventilator management as per critical care team - Obtain INR - Would request cardiac and pulmonary risk assessment/clearance prior to consideration of endoscopic gastrostomy tube placement - Will also need to carefully discuss risks/benefits of procedure with patient' s family members prior to proceeding with procedure. Will continue to monitor patient clinical course.
[2017-08-23 08:16] LABS: EOSINOPHIL 1 % (0-4); NEUTROPHIL 88 % (50-75); TOTAL CELLS COUNTED 100
--- NOTE | 2017-08-23 09:57 | RAD ---
PROCEDURE: Intraoperative Fluoroscopy. HISTORY: RENAL FAILURE FINDINGS: Fluoroscopic assistance was provided for right-sided PermCath placement. Please refer to the operative report from
--- NOTE | 2017-08-23 12:13 | CP.PCM.PN ---
Subjective - Date & Time of Evaluation Date of Evaluation: 08/23/17 Time of Evaluation: 12:12 - Subjective Subjective: seen and examined undergoing hd, estimated uf 2L arousable confused trach-vent s/p permcath Objective - Vital Signs/Intake and Output Vital Signs (last 24 hours): Temp Pulse Resp BP Pulse Ox 97.8 F 95 H 16 110/45 L 96 08/23/17 10:15 08/23/17 12:00 08/23/17 12:00 08/23/17 12:00 08/23/17 12:00 Intake and Output: 08/23/17 08/23/17 06:59 18:59 Output Total 121 20 Balance -121 -20 - Medications Medications: Current Medications Acetaminophen (Tylenol 650mg/20.3ml Solution Ud) 650 mg PO Q6 PRN PRN Reason: Temperature Last Admin: 08/19/17 12:11 Dose: 650 mg Albuterol/Ipratropium (Duoneb 3 Mg/0.5 Mg (3 Ml) Ud) 3 ml INH RQ4 [facility] Last Admin: 08/22/17 11:27 Dose: 3 ml Aspirin (Aspirin Chewable) 81 mg PO DAILY [facility] Last Admin: 08/22/17 10:09 Dose: Not Given Enoxaparin Sodium (Lovenox) 30 mg SC DAILY [facility] Last Admin: 08/22/17 10:00 Dose: Not Given Epoetin Chencho (Procrit) 10,000 unit IV MWF [facility] Last Admin: 08/19/17 18:36 Dose: 10,000 unit Epoetin Chencho (Procrit) 10,000 unit IV ONCE ONE Stop: 08/23/17 12:11 Famotidine (Pepcid) 20 mg PO DAILY [facility] Last Admin: 08/22/17 10:03 Dose: 20 mg Cefepime HCl 1 gm/ Dextrose 50 mls @ 100 mls/hr IVPB Q24H [facility] Last Admin: 08/22/17 14:50 Dose: 50 mls Insulin Aspart (Novolog) 0 unit SC Q6 [facility] PRN Reason: Protocol Last Admin: 08/23/17 06:30 Dose: 6 unit Insulin Detemir (Levemir) 16 unit SC Q12H [facility] Last Admin: 08/22/17 20:11 Dose: Not Given Lactobacillus Acidophilus (Bacid Acidophilus) 1 cap PO BID [facility] Last Admin: 08/22/17 18:46 Dose: Not Given Lorazepam (Ativan) 1 mg IVP Q2H PRN PRN Reason: Anxiety Metoprolol Tartrate (Lopressor) 50 mg PO BID [facility] Last Admin: 08/22/17 18:47 Dose: Not Given Rosuvastatin Calcium (Crestor) 10 mg PO HS [facility] Last Admin: 08/22/17 21:57 Dose: Not Given - Labs Labs: 08/23/17 06:24 08/23/17 06:24 PT 13.0 SECONDS (9.7-12.2) H 08/09/17 23:23 INR 1.2 08/09/17 23:23 APTT 55 SECONDS (21-34) H D 08/17/17 06:12 - Constitutional Appears: No Acute Distress, Confused, Chronically Ill - Head Exam Head Exam: NORMAL INSPECTION - Eye Exam Eye Exam: Normal appearance - Neck Exam Neck Exam: Normal Inspection (trach-vent) - Respiratory Exam Respiratory Exam: NORMAL BREATHING PATTERN (mechanical vent sounds b/l) - Cardiovascular Exam Cardiovascular Exam: REGULAR RHYTHM, RRR (rt chest permcath) - GI/Abdominal Exam GI & Abdominal Exam: Distended, Soft - Extremities Exam Extremities Exam: Normal Inspection Assessment and Plan (1) Acute on chronic renal failure Status: Acute (2) CHF (congestive heart failure) Status: Acute (3) History of DVT (deep vein thrombosis) Status: Acute (4) CAD (coronary artery disease) Status: Acute (5) CKD (chronic kidney disease) Status: Acute - Assessment and Plan (Free Text) Assessment: maintain hd tts jina w/ hd
[2017-08-23] MEDS ORDERED: Epoetin Alfa 10,000 unit/ml Dialysis IV ONE (12:15)
[2017-08-23] MEDS: Lactobacillus Acidophilus 500 MU Cap PO SCH ×2 (12:19→17:59)
[2017-08-23] MEDS: Insulin Detemir 100 units/ml Vial (Levemir) SC SCH ×2 (12:20→21:00)
[2017-08-23] MEDS ORDERED: Sodium Chloride 0.9% 250 ML IV ONE (14:46)
[2017-08-23] MEDS ORDERED: Midazolam 50 mg/10 ml 100 MG in Sodium Chloride 0.9% 80 ML IV PRN (15:00)
[2017-08-23] MEDS ORDERED: Midazolam 50 mg/10 ml 100 MG in Sodium Chloride 0.9% 80 ML IV SCH (16:00)
--- NOTE | 2017-08-23 16:07 | CP.CCUPN ---
<Chintan Oliver E - Last Filed: 08/23/17 16:26> CCU Subjective - Physician Review Subjective (Free Text): Patient seen and examined at bedside. He is awake and moving his extremities on his own. He remains intubated, not on sedation. Full ROS was not obtained due to his current status. Patients medical record and labs were reviewed and case with discussed with housestaff. CCU Objective - Vital Signs / Intake & Output Vital Signs (Last 4 hours): Vital Signs Pulse Resp BP Pulse Ox 08/23/17 13:20 98 H 49 H 112/56 L 99 08/23/17 13:00 94 H 15 114/48 L 99 08/23/17 12:30 98 H 18 95/53 L 99 08/23/17 12:00 95 H 16 110/45 L 96 Intake and Output (Last 8hrs): Intake & Output 08/23/17 08/23/17 08/23/17 06:59 14:59 22:59 Output Total 95 20 Balance -95 -20 Weight 185 lb Output: Urine 95 20 Urethral (Sanchez) 95 20 - Physical Exam Head: Positive for: Atraumatic, Normocephalic Pupils: Positive for: Sluggish Conjunctiva: Positive for: Normal Pharnyx: Positive for: Normal Respiratory/Chest: Positive for: Other (Tracheostomy ) Cardiovascular: Positive for: Regular Rate and Rhythm, Normal S1, S2, Tachycardic Abdomen: Positive for: Distention, Normal Bowel Sounds, Other (obese habitus) Skin: Positive for: Warm, Dry Psychiatric: Positive for: Alert (off sedation) - Medications Active Medications: Active Medications Generic Name Dose Route Start Last Admin Trade Name Freq PRN Reason Stop Dose Admin Acetaminophen 650 mg 08/11/17 17:40 08/19/17 12:11 Tylenol 650mg/20.3ml Solution Ud PO 650 mg Q6 PRN Administration Temperature Albuterol/Ipratropium 3 ml 08/18/17 12:00 08/22/17 11:27 Duoneb 3 Mg/0.5 Mg (3 Ml) Ud INH 3 ml RQ4 LUIS FERNANDO Administration Aspirin 81 mg 08/14/17 11:15 08/22/17 10:09 Aspirin Chewable PO Not Given DAILY LUIS FERNANDO Diltiazem HCl 5 mg 08/23/17 16:00 Cardizem IVP 08/23/17 16:01 ONCE ONE Enoxaparin Sodium 30 mg 08/17/17 10:00 08/22/17 10:00 Lovenox SC Not Given DAILY [facility] Epoetin Chencho 10,000 unit 08/17/17 14:00 08/19/17 18:36 Procrit IV 10,000 unit MWF [facility] Administration Famotidine 20 mg 08/09/17 10:00 08/23/17 12:20 Pepcid PO Not Given DAILY [facility] Cefepime HCl 1 gm/ Dextrose 50 mls @ 100 mls/hr 08/19/17 12:00 08/23/17 14:36 IVPB 100 mls/hr Q24H LUIS FERNANDO Administration Midazolam HCl 100 mg/ Sodium 100 mls @ 1.67 mls/hr 08/23/17 16:00 Chloride IV .Q24H [facility] Protocol 0.02 MG/KG/HR Insulin Aspart 0 unit 08/23/17 13:34 Novolog SC Q6 [facility] Protocol Insulin Detemir 16 unit 08/20/17 08:18 08/23/17 12:20 Levemir SC Not Given Q12H [facility] Lactobacillus Acidophilus 1 cap 08/13/17 18:00 08/23/17 12:19 Bacid Acidophilus PO Not Given BID LUIS FERNANDO Lorazepam 1 mg 08/23/17 10:28 08/23/17 13:50 Ativan IVP 1 mg Q2H PRN Administration Anxiety Metoprolol Tartrate 50 mg 08/22/17 09:09 08/23/17 12:20 Lopressor PO Not Given BID [facility] Rosuvastatin Calcium 10 mg 08/06/17 22:00 08/22/17 21:57 Crestor PO Not Given HS [facility] - Patient Studies Lab Studies: Microbiology Studies 08/19/17 19:00 Gram Stain - Final Pleural Fluid Body Fluid Culture - Final No growth. Lab Studies 08/23/17 08/23/17 08/23/17 Range/Units 11:59 06:24 06:24 WBC 17.8 H (4.8-10.8) K/uL RBC 3.72 L (4.40-5.90) Mil/uL Hgb 8.7 L (12.0-18.0) g/dL Hct 27.8 L (35.0-51.0) % MCV 74.7 L (80.0-94.0) fL MCH 23.5 L (27.0-31.0) pg MCHC 31.4 L (33.0-37.0) g/dL RDW 21.5 H (11.5-14.5) % Plt Count 566 H (130-400) K/uL MPV 8.4 (7.2-11.7) fL Neut % (Auto) 82.9 H (50.0-75.0) % Lymph % (Auto) 6.2 L (20.0-40.0) % [place] % (Auto) 6.0 (0.0-10.0) % Eos % (Auto) 4.3 H (0.0-4.0) % Baso % (Auto) 0.6 (0.0-2.0) % Neut # 14.8 H (1.8-7.0) K/uL Lymph # 1.1 (1.0-4.3) K/uL [place] # 1.1 H (0.0-0.8) K/uL Eos # 0.8 H (0.0-0.7) K/uL Baso # 0.1 (0.0-0.2) K/uL Neutrophils % (Manual) 88 H (50-75) % Band Neutrophils % 1 (0-2) % Lymphocytes % (Manual) 9 L (20-40) % Monocytes % (Manual) 1 (0-10) % Eosinophils % (Manual) 1 (0-4) % Platelet Estimate Increased H (NORMAL) Polychromasia Slight Hypochromasia (manual) Slight Anisocytosis (manual) Moderate Microcytosis (manual) Slight Ovalocytes Slight Sodium 139 (132-148) mmol/L Potassium 5.8 H (3.6-5.2) mmol/L Chloride 97 L (98-107) mmol/L Carbon Dioxide 17 L (22-30) mmol/L Anion Gap 31 H (10-20) BUN 121 H* (9-20) mg/dL Creatinine 8.5 H* D (0.8-1.5) MG/DL Est GFR ( Amer) 7 Est GFR (Non-Af Amer) 6 POC Glucose (mg/dL) 193 H (65-110) mg/dL Random Glucose 252 H (75-110) mg/dL Calcium 8.7 (8.6-10.4) mg/dl Phosphorus 12.1 H (2.5-4.5) mg/dL Magnesium 3.8 H (1.6-2.3) mg/dL Total Bilirubin 0.8 (0.2-1.3) mg/dL AST 46 (17-59) U/L ALT 64 (21-72) U/L Alkaline Phosphatase 168 H (38-126) U/L Total Protein 7.0 (6.3-8.3) g/dL Albumin 3.4 L (3.5-5.0) g/dL Globulin 3.6 (2.2-3.9) gm/dL Albumin/Globulin Ratio 0.9 L (1.0-2.1) 08/23/17 08/22/17 08/22/17 Range/Units 05:36 23:56 17:59 WBC (4.8-10.8) K/uL RBC (4.40-5.90) Mil/uL Hgb (12.0-18.0) g/dL Hct (35.0-51.0) % MCV (80.0-94.0) fL MCH (27.0-31.0) pg MCHC (33.0-37.0) g/dL RDW (11.5-14.5) % Plt Count (130-400) K/uL MPV (7.2-11.7) fL Neut % (Auto) (50.0-75.0) % Lymph % (Auto) (20.0-40.0) % [place] % (Auto) (0.0-10.0) % Eos % (Auto) (0.0-4.0) % Baso % (Auto) (0.0-2.0) % Neut # (1.8-7.0) K/uL Lymph # (1.0-4.3) K/uL [place] # (0.0-0.8) K/uL Eos # (0.0-0.7) K/uL Baso # (0.0-0.2) K/uL Neutrophils % (Manual) (50-75) % Band Neutrophils % (0-2) % Lymphocytes % (Manual) (20-40) % Monocytes % (Manual) (0-10) % Eosinophils % (Manual) (0-4) % Platelet Estimate (NORMAL) Polychromasia Hypochromasia (manual) Anisocytosis (manual) Microcytosis (manual) Ovalocytes Sodium (132-148) mmol/L Potassium (3.6-5.2) mmol/L Chloride (98-107) mmol/L Carbon Dioxide (22-30) mmol/L Anion Gap (10-20) BUN (9-20) mg/dL Creatinine (0.8-1.5) MG/DL Est GFR ( Amer) Est GFR (Non-Af Amer) POC Glucose (mg/dL) 286 H 248 H 308 H (65-110) mg/dL Random Glucose (75-110) mg/dL Calcium (8.6-10.4) mg/dl Phosphorus (2.5-4.5) mg/dL Magnesium (1.6-2.3) mg/dL Total Bilirubin (0.2-1.3) mg/dL AST (17-59) U/L ALT (21-72) U/L Alkaline Phosphatase (38-126) U/L Total Protein (6.3-8.3) g/dL Albumin (3.5-5.0) g/dL Globulin (2.2-3.9) gm/dL Albumin/Globulin Ratio (1.0-2.1) Laboratory Results - last 24 hr 08/22/17 08/22/17 08/23/17 17:59 23:56 05:36 WBC RBC Hgb Hct MCV MCH MCHC RDW Plt Count MPV Neut % (Auto) Lymph % (Auto) [place] % (Auto) Eos % (Auto) Baso % (Auto) Neut # Lymph # [place] # Eos # Baso # Neutrophils % (Manual) Band Neutrophils % Lymphocytes % (Manual) Monocytes % (Manual) Eosinophils % (Manual) Platelet Estimate Polychromasia Hypochromasia (manual) Anisocytosis (manual) Microcytosis (manual) Ovalocytes Sodium Potassium Chloride Carbon Dioxide Anion Gap BUN Creatinine Est GFR ( Amer) Est GFR (Non-Af Amer) POC Glucose (mg/dL) 308 H 248 H 286 H Random Glucose Calcium Phosphorus Magnesium Total Bilirubin AST ALT Alkaline Phosphatase Total Protein Albumin Globulin Albumin/Globulin Ratio 08/23/17 08/23/17 08/23/17 06:24 06:24 11:59 WBC 17.8 H RBC 3.72 L Hgb 8.7 L Hct 27.8 L MCV 74.7 L MCH 23.5 L MCHC 31.4 L RDW 21.5 H Plt Count 566 H MPV 8.4 Neut % (Auto) 82.9 H Lymph % (Auto) 6.2 L [place] % (Auto) 6.0 Eos % (Auto) 4.3 H Baso % (Auto) 0.6 Neut # 14.8 H Lymph # 1.1 [place] # 1.1 H Eos # 0.8 H Baso # 0.1 Neutrophils % (Manual) 88 H Band Neutrophils % 1 Lymphocytes % (Manual) 9 L Monocytes % (Manual) 1 Eosinophils % (Manual) 1 Platelet Estimate Increased H Polychromasia Slight Hypochromasia (manual) Slight Anisocytosis (manual) Moderate Microcytosis (manual) Slight Ovalocytes Slight Sodium 139 Potassium 5.8 H Chloride 97 L Carbon Dioxide 17 L Anion Gap 31 H BUN 121 H* Creatinine 8.5 H* D Est GFR ( Amer) 7 Est GFR (Non-Af Amer) 6 POC Glucose (mg/dL) 193 H Random Glucose 252 H Calcium 8.7 Phosphorus 12.1 H Magnesium 3.8 H Total Bilirubin 0.8 AST 46 ALT 64 Alkaline Phosphatase 168 H Total Protein 7.0 Albumin 3.4 L Globulin 3.6 Albumin/Globulin Ratio 0.9 L Fingerstick Blood Sugar Results: 286 Review of Systems - Review of Systems Review of Systems: Unable to evaluate Critical Care Progress Note - Nutrition Nutrition: Nutrition Category Date Time Status NPO Diet [DIET] Diets 08/21/17 Dinner Active Assessment/Plan - Assessment and Plan (Free Text) Assessment: 77 year old male admitted to ICU on 08/10 from hospital floors, patient was to get a CT scan and had respiratory distress, code blue was called and patient was transferred to ICU and intubated. Patient developed ARDS requiring high PEEP (14) and severe sepsis from pneumonia on antibiotics. S/P Perma cath placement and tracheostomy POD#1 Plan: Neuro: no acute issues - Versed 2 mg IV prn for anxiety - Ativan 1mg IVP Q2H prn Pulm: Acute respiratory failure in severe ARDS, intubated. - 08/19 CT chest showed large right pleural effusion. Right sided pigtail was placed. - Tracheostomy in place - Duoneb 3 ml Q CV: NSTEMI - Plavix discontinued due to stent being placed >1 year ago. - ASA 81 mg PO daily - Lopressor 25 mg PO BID - Crestor 10 mg PO HS Heme: h/o anemia, DVT - 08/09 Lower extremities doppler negative for DVTs bilaterally - ASA 81 mg PO daily - Lovenox 30 mg SC daily Renal: ALIREZA - Continue aggressive HD (MWF) - General surgery consulted for Permacath placement for HD access, possibly today during Tracheostomy, help appreciated. Endo: DM type 2 - ISS- High dose protocol - Levemir 16 U SC Q12 GI: no acute issues ID: severe sepsis from pneumonia - 08/19 Sputum: no growth - 08/18 Urine Cx: no growth - Cefepime 1 gm daily: Day 4 (started on 08/19) Prophylaxis DVT: Lovenox 30 mg SC daily GI: pepcid 20 mg PO daily, Lactobacillus 1 cap PO BID Acetaminophen 650 mg PO prn Sanchez for strict I/O's during acute illness Code status - full code <Kanu Laguna M - Last Filed: 08/23/17 17:23> CCU Objective - Vital Signs / Intake & Output Vital Signs (Last 4 hours): Vital Signs Pulse Resp BP Pulse Ox 08/23/17 13:45 142 H 25 H 126/56 L 99 08/23/17 13:20 98 H 25 H 112/56 L 99 Intake and Output (Last 8hrs): Intake & Output 08/23/17 08/23/17 08/23/17 06:59 14:59 22:59 Output Total 95 20 Balance -95 -20 Weight 185 lb Output: Urine 95 20 Urethral (Sanchez) 95 20 - Medications Active Medications: Active Medications Generic Name Dose Route Start Last Admin Trade Name Freq PRN Reason Stop Dose Admin Acetaminophen 650 mg 08/11/17 17:40 08/19/17 12:11 Tylenol 650mg/20.3ml Solution Ud PO 650 mg Q6 PRN Administration Temperature Albuterol/Ipratropium 3 ml 08/18/17 12:00 08/22/17 11:27 Duoneb 3 Mg/0.5 Mg (3 Ml) Ud INH 3 ml RQ4 LUIS FERNANDO Administration Aspirin 81 mg 08/14/17 11:15 08/22/17 10:09 Aspirin Chewable PO Not Given DAILY LUIS FERNANDO Enoxaparin Sodium 30 mg 08/17/17 10:00 08/22/17 10:00 Lovenox SC Not Given DAILY [facility] Epoetin Chencho 10,000 unit 08/17/17 14:00 08/19/17 18:36 Procrit IV 10,000 unit MWF [facility] Administration Famotidine 20 mg 08/09/17 10:00 08/23/17 12:20 Pepcid PO Not Given DAILY [facility] Cefepime HCl 1 gm/ Dextrose 50 mls @ 100 mls/hr 08/19/17 12:00 08/23/17 14:36 IVPB 100 mls/hr Q24H [facility] Administration Midazolam HCl 100 mg/ Sodium 100 mls @ 1.67 mls/hr 08/23/17 16:00 Chloride IV .Q24H [facility] Protocol 0.02 MG/KG/HR Insulin Aspart 0 unit 08/23/17 13:34 Novolog SC Q6 [facility] Protocol Insulin Detemir 16 unit 08/20/17 08:18 08/23/17 12:20 Levemir SC Not Given Q12H [facility] Lactobacillus Acidophilus 1 cap 08/13/17 18:00 08/23/17 12:19 Bacid Acidophilus PO Not Given BID [facility] Lorazepam 1 mg 08/23/17 10:28 08/23/17 13:50 Ativan IVP 1 mg Q2H PRN Administration Anxiety Metoprolol Tartrate 50 mg 08/22/17 09:09 08/23/17 12:20 Lopressor PO Not Given BID [facility] Rosuvastatin Calcium 10 mg 08/06/17 22:00 08/22/17 21:57 Crestor PO Not Given HS [facility] - Patient Studies Lab Studies: Microbiology Studies 08/19/17 19:00 Gram Stain - Final Pleural Fluid Body Fluid Culture - Final No growth. Lab Studies 08/23/17 08/23/17 08/23/17 Range/Units 11:59 06:24 06:24 WBC 17.8 H (4.8-10.8) K/uL RBC 3.72 L (4.40-5.90) Mil/uL Hgb 8.7 L (12.0-18.0) g/dL Hct 27.8 L (35.0-51.0) % MCV 74.7 L (80.0-94.0) fL MCH 23.5 L (27.0-31.0) pg MCHC 31.4 L (33.0-37.0) g/dL RDW 21.5 H (11.5-14.5) % Plt Count 566 H (130-400) K/uL MPV 8.4 (7.2-11.7) fL Neut % (Auto) 82.9 H (50.0-75.0) % Lymph % (Auto) 6.2 L (20.0-40.0) % [place] % (Auto) 6.0 (0.0-10.0) % Eos % (Auto) 4.3 H (0.0-4.0) % Baso % (Auto) 0.6 (0.0-2.0) % Neut # 14.8 H (1.8-7.0) K/uL Lymph # 1.1 (1.0-4.3) K/uL [place] # 1.1 H (0.0-0.8) K/uL Eos # 0.8 H (0.0-0.7) K/uL Baso # 0.1 (0.0-0.2) K/uL Neutrophils % (Manual) 88 H (50-75) % Band Neutrophils % 1 (0-2) % Lymphocytes % (Manual) 9 L (20-40) % Monocytes % (Manual) 1 (0-10) % Eosinophils % (Manual) 1 (0-4) % Platelet Estimate Increased H (NORMAL) Polychromasia Slight Hypochromasia (manual) Slight Anisocytosis (manual) Moderate Microcytosis (manual) Slight Ovalocytes Slight Sodium 139 (132-148) mmol/L Potassium 5.8 H (3.6-5.2) mmol/L Chloride 97 L (98-107) mmol/L Carbon Dioxide 17 L (22-30) mmol/L Anion Gap 31 H (10-20) BUN 121 H* (9-20) mg/dL Creatinine 8.5 H* D (0.8-1.5) MG/DL Est GFR ( Amer) 7 Est GFR (Non-Af Amer) 6 POC Glucose (mg/dL) 193 H (65-110) mg/dL Random Glucose 252 H (75-110) mg/dL Calcium 8.7 (8.6-10.4) mg/dl Phosphorus 12.1 H (2.5-4.5) mg/dL Magnesium 3.8 H (1.6-2.3) mg/dL Total Bilirubin 0.8 (0.2-1.3) mg/dL AST 46 (17-59) U/L ALT 64 (21-72) U/L Alkaline Phosphatase 168 H (38-126) U/L Total Protein 7.0 (6.3-8.3) g/dL Albumin 3.4 L (3.5-5.0) g/dL Globulin 3.6 (2.2-3.9) gm/dL Albumin/Globulin Ratio 0.9 L (1.0-2.1) 08/23/17 08/22/17 08/22/17 Range/Units 05:36 23:56 17:59 WBC (4.8-10.8) K/uL RBC (4.40-5.90) Mil/uL Hgb (12.0-18.0) g/dL Hct (35.0-51.0) % MCV (80.0-94.0) fL MCH (27.0-31.0) pg MCHC (33.0-37.0) g/dL RDW (11.5-14.5) % Plt Count (130-400) K/uL MPV (7.2-11.7) fL Neut % (Auto) (50.0-75.0) % Lymph % (Auto) (20.0-40.0) % [place] % (Auto) (0.0-10.0) % Eos % (Auto) (0.0-4.0) % Baso % (Auto) (0.0-2.0) % Neut # (1.8-7.0) K/uL Lymph # (1.0-4.3) K/uL [place] # (0.0-0.8) K/uL Eos # (0.0-0.7) K/uL Baso # (0.0-0.2) K/uL Neutrophils % (Manual) (50-75) % Band Neutrophils % (0-2) % Lymphocytes % (Manual) (20-40) % Monocytes % (Manual) (0-10) % Eosinophils % (Manual) (0-4) % Platelet Estimate (NORMAL) Polychromasia Hypochromasia (manual) Anisocytosis (manual) Microcytosis (manual) Ovalocytes Sodium (132-148) mmol/L Potassium (3.6-5.2) mmol/L Chloride (98-107) mmol/L Carbon Dioxide (22-30) mmol/L Anion Gap (10-20) BUN (9-20) mg/dL Creatinine (0.8-1.5) MG/DL Est GFR ( Amer) Est GFR (Non-Af Amer) POC Glucose (mg/dL) 286 H 248 H 308 H (65-110) mg/dL Random Glucose (75-110) mg/dL Calcium (8.6-10.4) mg/dl Phosphorus (2.5-4.5) mg/dL Magnesium (1.6-2.3) mg/dL Total Bilirubin (0.2-1.3) mg/dL AST (17-59) U/L ALT (21-72) U/L Alkaline Phosphatase (38-126) U/L Total Protein (6.3-8.3) g/dL Albumin (3.5-5.0) g/dL Globulin (2.2-3.9) gm/dL Albumin/Globulin Ratio (1.0-2.1) Laboratory Results - last 24 hr 08/22/17 08/22/17 08/23/17 17:59 23:56 05:36 WBC RBC Hgb Hct MCV MCH MCHC RDW Plt Count MPV Neut % (Auto) Lymph % (Auto) [place] % (Auto) Eos % (Auto) Baso % (Auto) Neut # Lymph # [place] # Eos # Baso # Neutrophils % (Manual) Band Neutrophils % Lymphocytes % (Manual) Monocytes % (Manual) Eosinophils % (Manual) Platelet Estimate Polychromasia Hypochromasia (manual) Anisocytosis (manual) Microcytosis (manual) Ovalocytes Sodium Potassium Chloride Carbon Dioxide Anion Gap BUN Creatinine Est GFR ( Amer) Est GFR (Non-Af Amer) POC Glucose (mg/dL) 308 H 248 H 286 H Random Glucose Calcium Phosphorus Magnesium Total Bilirubin AST ALT Alkaline Phosphatase Total Protein Albumin Globulin Albumin/Globulin Ratio 08/23/17 08/23/17 08/23/17 06:24 06:24 11:59 WBC 17.8 H RBC 3.72 L Hgb 8.7 L Hct 27.8 L MCV 74.7 L MCH 23.5 L MCHC 31.4 L RDW 21.5 H Plt Count 566 H MPV 8.4 Neut % (Auto) 82.9 H Lymph % (Auto) 6.2 L [place] % (Auto) 6.0 Eos % (Auto) 4.3 H Baso % (Auto) 0.6 Neut # 14.8 H Lymph # 1.1 [place] # 1.1 H Eos # 0.8 H Baso # 0.1 Neutrophils % (Manual) 88 H Band Neutrophils % 1 Lymphocytes % (Manual) 9 L Monocytes % (Manual) 1 Eosinophils % (Manual) 1 Platelet Estimate Increased H Polychromasia Slight Hypochromasia (manual) Slight Anisocytosis (manual) Moderate Microcytosis (manual) Slight Ovalocytes Slight Sodium 139 Potassium 5.8 H Chloride 97 L Carbon Dioxide 17 L Anion Gap 31 H BUN 121 H* Creatinine 8.5 H* D Est GFR ( Amer) 7 Est GFR (Non-Af Amer) 6 POC Glucose (mg/dL) 193 H Random Glucose 252 H Calcium 8.7 Phosphorus 12.1 H Magnesium 3.8 H Total Bilirubin 0.8 AST 46 ALT 64 Alkaline Phosphatase 168 H Total Protein 7.0 Albumin 3.4 L Globulin 3.6 Albumin/Globulin Ratio 0.9 L Critical Care Progress Note - Nutrition Nutrition: Nutrition Category Date Time Status NPO Diet [DIET] Diets 08/21/17 Dinner Active Attending/Attestation - Attestation I have personally seen and examined this patient.: Yes I have fully participated in the care of the patient.: Yes I have reviewed all pertinent clinical information: Yes Notes (Text): 08/23/17 17:16 Today: Wednesday, August 23, 2017 The Patient was seen and examined at the bedside, Medical records reviewed, and management issues were discussed and formulated with the house staff. 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 EF: 25-30%; global hypokinesis of LV mild AR. MR is moderate. Moderate-severe pulmonary hypertesnion S/P Trach ALIREZA on HD S/P Perma cath Comfortable, not in any respiratory distress. Continue current antibiotic,. Continue cardiac Meds BB Statins and Cardiazem Off dobutamine Tight glycemic control, RISS with Coverage Aggressive pulmonary toilet, chest PT, suctioning GI/DVT PPX : Lovenox, Pepcid Full code Pain issues, skin care, head of the bed elevation, glycemic control were addressed. Agree with above treatment plans as transcribed in note Discussed with patients family at the bedside the diagnosis, treatment plans and alternatives I concur with resident's assessment and plan of care as transcribed in Dr. Oliver note.
[2017-08-23] MEDS: Midazolam 50 mg/10 ml 100 MG in Sodium Chloride 0.9% 80 ML IV SCH (16:15)
--- NOTE | 2017-08-23 20:46 | CP.PCM.PN ---
Subjective - Date & Time of Evaluation Date of Evaluation: 08/23/17 Time of Evaluation: 19:30 - Subjective Subjective: Medical Attending Note: Patient seen, examined, and case discussed with ICU. Patient's present, Amanda Serrano at bedside. Patient unable to participate in ROS secondary to clinical condition. I spoke with patient's who will present tomorrow around 930AM, provided cell number to the nurse for GI to be able to obtain consent for peg. Pending cardio and pulm clearance as requested by GI. Objective - Vital Signs/Intake and Output Vital Signs (last 24 hours): Temp Pulse Resp BP Pulse Ox 97.8 F 142 H 25 H 126/56 L 99 08/23/17 10:15 08/23/17 13:45 08/23/17 13:45 08/23/17 13:45 08/23/17 13:45 Intake and Output: 08/23/17 08/24/17 18:59 06:59 Intake Total 5 Output Total 20 Balance -15 - Medications Medications: Current Medications Acetaminophen (Tylenol 650mg/20.3ml Solution Ud) 650 mg PO Q6 PRN PRN Reason: Temperature Last Admin: 08/19/17 12:11 Dose: 650 mg Albuterol/Ipratropium (Duoneb 3 Mg/0.5 Mg (3 Ml) Ud) 3 ml INH RQ4 [facility] Last Admin: 08/22/17 11:27 Dose: 3 ml Aspirin (Aspirin Chewable) 81 mg PO DAILY [facility] Last Admin: 08/22/17 10:09 Dose: Not Given Enoxaparin Sodium (Lovenox) 30 mg SC DAILY [facility] Last Admin: 08/22/17 10:00 Dose: Not Given Epoetin Chencho (Procrit) 10,000 unit IV MWF [facility] Last Admin: 08/19/17 18:36 Dose: 10,000 unit Famotidine (Pepcid) 20 mg PO DAILY [facility] Last Admin: 08/23/17 12:20 Dose: Not Given Cefepime HCl 1 gm/ Dextrose 50 mls @ 100 mls/hr IVPB Q24H [facility] Last Admin: 08/23/17 14:36 Dose: 100 mls/hr Midazolam HCl 100 mg/ Sodium (Chloride) 100 mls @ 1.67 mls/hr IV .Q24H [facility]; 0.02 MG/KG/HR PRN Reason: Protocol Last Admin: 08/23/17 16:15 Dose: 0.02 mg/kg/hr, 1.67 mls/hr Insulin Aspart (Novolog) 0 unit SC Q6 [facility] PRN Reason: Protocol Last Admin: 08/23/17 19:35 Dose: 2 unit Insulin Detemir (Levemir) 16 unit SC Q12H [facility] Last Admin: 08/23/17 12:20 Dose: Not Given Lactobacillus Acidophilus (Bacid Acidophilus) 1 cap PO BID [facility] Last Admin: 08/23/17 17:59 Dose: Not Given Lorazepam (Ativan) 1 mg IVP Q2H PRN PRN Reason: Anxiety Last Admin: 08/23/17 13:50 Dose: 1 mg Metoprolol Tartrate (Lopressor) 50 mg PO BID [facility] Last Admin: 08/23/17 19:22 Dose: Not Given Rosuvastatin Calcium (Crestor) 10 mg PO HS [facility] Last Admin: 08/22/17 21:57 Dose: Not Given - Labs Labs: 08/23/17 06:24 08/23/17 06:24 PT 13.0 SECONDS (9.7-12.2) H 08/09/17 23:23 INR 1.2 08/09/17 23:23 APTT 55 SECONDS (21-34) H D 08/17/17 06:12 - Constitutional Appears: Chronically Ill - Head Exam Head Exam: NORMAL INSPECTION Additional comments: s/p trach--clean/dry/intact connected to PRVC - Eye Exam Eye Exam: EOMI - Respiratory Exam Respiratory Exam: Decreased Breath Sounds - Cardiovascular Exam Cardiovascular Exam: Tachycardia, +S1, +S2 - Extremities Exam Extremities Exam: Pedal Edema - Psychiatric Exam Psychiatric exam: Agitated - Skin Skin Exam: Dry, Normal Color, Warm Attending/Attestation - Attestation I have personally seen and examined this patient.: Yes I have fully participated in the care of the patient.: Yes I have reviewed all pertinent clinical information, including history, physical exam and plan: Yes Notes (Text): (1) Acute Respiratory Failure ARDS Cardiac Arrest Pulmonary Edema NONSTEMI Assessment and Plan: * Code Blue on 08/10: asystole, cardiopulmonary resuscitative measures initiated , requiring 3 epis, bicarbonate, ROSC achieved and intubated and brought to the ICU for further management * 08/10: Central line placed by ICU; placed on tridil drip; heparin drip c/w * 08/11: Patient placed on Lasix IV. On heparin drip. No plans for cardiac cath at time time. Chest Xray (08/11/17): NG tube extending into the stomach. Endotracheal tube extending into the mild thoracic trachea. Left sided pacemaker. multiple overlying external wires and tubing, Moderate severe venous congestion with prominent confluent airspace opacities in the mid to lower lung zones with associated small to moderate bilateral pleural effusions. scattered nodular densities in both lungs. Cardiomegaly. Degenerative changes in the spine and shoulders. * 08/12: Chest xray (08/12/17): right basilar opacity. Small right pleural effusion. Lines and tubes unchanged.-->C/w Lasix. Discussed with Dr. Mena (pulm) , recommended for CT Chest w/o contrast for possible ARDS. increased peep 10 * 08/13: pending chest /abdomen xray for this morning; self-extubated and reintubated overnight; off tridil drip secondary to hypotension post intubation ; on heparin drip * CT Chest/Abdomen/Pelvis (08/13): moderate to large bilateral pleural effusions largeer on thr right associated with atelectasis at lower lobes. Nonspecific ground-glass opacities in the upper lobe new may be due to pulmonary vascular congestion. moderately cardiomegaly. No evidence of bowel obstruction. Moderately to markedly enlarged prostate. nonobstructing calculus at mid to lower pole left kidney. Gallstone without evidence of cholecystitis. Scattered diverticulosis without evidence of diverticulitis * Repeat CT Chest 08/18 showed moderate Bilateral Pleural Effusion associated with compressive consolidations. I spoke with Cardiothoracic Surgeon Dr. Lopez and he recommended bilateral pigtail catheters. ICU Team placed Right Chest Pigtail Catheter 08/19 and as only small amount of fluid was produced, Left Chest Pigtail Catheter was not placed. Pleural Fluid studies (Total Protein, LDH , Glucose, Cell count with diff, Gram Stain and Culture, pH) have been ordered . * Patient was planned for Tracheostomy 08/19/17 however due to his PEEP of 14 this is currently on hold. * 08/21: PEEP is down to 6. Tracheostomy is planned for 08/22 and Nurse Fontaine has been made aware to STOP Glucerna NG feeding after midnight * 08/22: s/p tracheostomy POD 0; aspirin and dvt ppx held today-->will need to follow-up with surgery to see when to restart these medications * 08/23: s/p tracheostomy POD 1; aspirin and dvt ppx on hold-->patient is pending peg placement: GI requesting cardio and pulmonary clearance-->phone number for patient's available with patient's nurse and will be present tomorrow at 930AM (2) Chest pain Assessment and Plan: * Cardiology (Dr. Cortés) on board-->help appreciated * All trops WNL; Troponin positive in light of CPR * EKG x2 = Sinus tachycardia notes with possible left atrial enlargement; no apparent T segment elevations in contiguous leads * Patient was Heparin Drip but this was discontinued 08/17/17 * Patient's cardiac catherization cancelled secondary to rise in creatinine (2.3 ) on 08/09/17. * Patient has hx of abnormal stress test. Discussed with cardiology and nephrology given change in Cr on 08/09. * Echocardiogram (08/08/17): left ventricle systolic function is severely impaired. EF: 25-30%; global hypokinesis of left ventricle mild aortic regurgitation. Mitral regurgitation is moderate. Moderate-severe pulmonary hypertesnion * Hx of ACID * Crestor 10mg POqHS * Metoprolol Succinate 50 mg PO 1x/day was placed on Hold 08/17/17 * Off Arb secondary to ARF * TSH: 1.16; T4: 1.53 * 08/22: held Aspirin 81mg PO daily and Plavix 75mg PO daily-->will need to follow-up with surgery when to restart medications 08/22 (3) Acute Systolic CHF exacerbation Assessment and Plan: * Cardiology Dr. Cortés is following * Transferred to the ICU on 08/10 following cardiac arrest and intubation. * Echocardiogram (08/08/17): left ventricular systolic function is severely impaired. EF: 25-30%; global hypokinesis of left ventricle mild aortic regurgitation. Mitral regurgitation is moderate. Moderate-severe pulmonary hypertension * Height of bed at 45 degrees, Strict ins and outs, monitor daily weights * Crestor 10mg POqHS * Metoprolol Succinate 50mg PO 1x/day was placed on Hold 08/17/17 * Off Arb secondary to ARF * Has been receiving HD 08/16/17 and 08/19/17 to help reduce the pulmonary congestion * Started on Dobutamine 2.5 mcg/kg/min 08/19/17-08/22/17 * 08/22: held Aspirin 81mg PO daily and Plavix 75mg PO daily-->will need to follow-up with surgery when to restart medications 08/22 * 08/23: held Aspirin 81mg PO daily, Plavix 75mg PO daily, dvt ppx--> patient's pending possible peg placement pending cardio/pulm clearance Status: Acute (4) Pneumonia Assessment and Plan: * Pulmonary (Dr. Mena) on board-->help appreciated * Infectious Disease (Dr. Lawrence)-->help appreciated * Rapid A strep, Influenza A and B studies, Urine Legionella, Mycoplasma studies = Negative * Florastor 250mg PO bid * +Strep Pneumoniae in the urine * 08/12: Will repeat urine studies and exchange out the jaquez * 08/18/17 Urine culture: no growth * Meropenem 500mg IV Q 8 hours ( 08/14/17 through 08/18/17) and Zosyn 2.25 mg IV Q6H (08/13/17 through 08/18/17) * 08/18: Chest X Ray shows scattered dense confluent pathcy areas of consolidative change seen throughout both lungs most prominent in left lung and right lung base * Sputum Culture 08/19/17 shows NO growth * pleural fluid 08/19/17: no growth * Cefepime 1 gm IV Q24H (08/19/17)-->DAY 4 Status: Acute (5) CAD (coronary artery disease) Assessment and Plan: * Hx of cardiac stent in the past * Cardiac cath on hold given events on 08/10 Status: Acute (6) HTN (hypertension) Assessment and Plan: * Metoprolol XL 50 mg PO 1x/day Status: Chronic (7) CKD (chronic kidney disease) Assessment and Plan: * Dr. Miranda (nephrology) consulted on the case * Hx of CKD * GFR 45 which appears to be around baseline * Stopped ARB given rise in CR * Off IV fluids given pulmonary edema * Monitor in and output: has not been producing significant amount of urine and HD was recommended by Nephrology * s/p Permcath 08/22 * 08/23: Started on Renevela 800mg PO tidcc discussed with nephro-> hyperphosphatemia Status: Acute (8) Diabetes mellitus Assessment and Plan: * Accuchecks Q6H * A1c 8.4 * 08/20: Required 26 units on Aspart ISS from 4 AM 08/19/17 through 4 AM 08/20/17 therefore half of this was added to total Levemir dose. Levemir now is 16 Units SC Q12H * Insulin Aspart ISS Q6H * 08/21: Patient required 32 units on Aspart ISS from 4 AM 08/20/17 through 4 AM . Was going to increase the Levemir dose to 32 units, however patient will be NPO after midnight 08/21/17 therefore this was not done. * 08/23 Insulin being held since patient took his OGT tube the night before Status: Chronic (9) HLD (hyperlipidemia) Assessment and Plan: * On Crestor 10 mg PO HS-->on hold since patient removed OGT tube Status: Chronic (10) Constipation Assessment and Plan: * Having bowel movements per nursing notes (08/14/17) * Senokot 50/8.6 1 tab PO 2x/day * 08/12: Will given ducolax suppository X1 * 08/13: has not had bowel movement; ordered for abdominal/chest xray in light of abdominal distension * CT Chest/Abdomen/Pelvis (08/13): moderate to large bilateral pleural effusions largeer on thr right associated with atelectasis at lower lobes. Nonspecific ground-glass opacities in the upper lobe new may be due to pulmonary vascular congestion. moderately cardiomegaly. No evidence of bowel obstruction. Moderately to markedly enlarged prostate. nonobstructing calculus at mid to lower pole left kidney. Gallstone without evidence of cholecystitis. Scattered diverticulosis without evidence of diverticulitis * 08/14: Patient is not obstructed per review CT scan * 08/19: He is moving his bowels as of 08/19/17 but the Senokot was placed on hold has the movements have been very soft * 08/21: patient is having normal bowel movements as per Nurse Fontaine Status: Chronic (11) Anemia Assessment and Plan: * Heme-oncology (Dr. Giles bender) on board-->help appreciated * Likely iron deficiency anemia based on prior admissions * Ferritin 27.4, Iron 22, TIBC 322, % Saturation 7 * Ferric Sodium Gluconate 125mg IVPB daily (active 08/08-08/16) * Procrit 10,000 units -- * Monitor Hgb/Hct: stable Status: Chronic (12) History of DVT (deep vein thrombosis) Assessment and Plan: * Patient was previously on Eliquis for a prior history of DVT. * Repeat dopplers 08/09/17 are negative for DVT * Off Heparin Drip 08/17/17 * Off DVT ppx since 08/22/17 secondary trach placement and possible peg placement Status: Acute (13) UTI * Infectious disease (Dr. Lawrence) on board-->help appreciated * Exchange jaquez out and repeat urine cultures * Urine Culture 08/12/17 showed Gram Negative Rods: NO identification and NO sensitivities were performed * Meropenem 500mg IV Q 12hours (active since 08/14/17 through 08/18/17) to cover for UTI per ID * Repeat Urine Culture 08/18/17 shows NO growth (14) Confusion; Alzheimer's Dementia Assessment and Plan: * Per daughter, patient has been getting bouts of confusion over the past year but appears at baseline. Patient has not seen formal neurology as outpatient per daughter. Per , prior to event, noted Alzheimers' disease dx one year ago * CT head w/o contrast (08/10/17):acute os subacute lacune infarct is not excluded in the left basal ganglia inferiorly with definitive chronic lacune identified in the right basal ganglia superiorly. No acute or subacute lobar brain infarction is appreciable by standard CT criteria. Mild age-related neuro degenerative changes are identifed. No acute intracranial hemorrhage or mass is identified throughout * 08/11: Patient gets agitated and will fight to pull the intubation tube out per nursing. Was placed on sedation and Ativan PRN * 08/12: patient is responsive to questions, able to move all extremities, off sedation. Patient is on PRN Versed and Ativan PRN. Will respond to yes and no questions * 08/13: Back on sedation since reintubation; patient is moving all extremities * 08/18: Versed 2 mg IV Q3H PRN Anxiety * 08/23: patient very agitated; started on Midazolam 100mg IV 24 HR, per discussion with ICU, unable to ascertain if patient is in pain (15) Prophylactic measure Assessment and Plan: * Pepcid 20mg PO daily * held Lovenox 30 mg SC 1x/day secondary to OR 08/22-->f/u when to restart anticoagulation; patient is pending possible peg placement * Patient is pending peg placement * Patient took out his OGT tube 08/22; to have NGT tube reinsertion on evening shift; PO meds are being held at this time * Bacid 1 cap NGT 2x/day * Atrovent Q6H PRN * Tylenol 650 mg PO Q6H PRN Temperature * Albumin 25% 12.5 gm IV Q2H x 3 doses on 08/18/17 and 08/19/17 * s/p trachesostomy 08/22 * s/p Permcath placement 08/22 removal Kurtis catheter * s/p right posterior chest tube 08/19 * (Jovita Serrano): -->number provided to the nurse and will be present tomorrow at 930am-->informed GI fellow in regards to obtaining consent for peg
[2017-08-24] MEDS: (Novolog) Insulin Aspart, Recombinant 100 u/ml 10 ml vial SC SCH ×4 (00:15→18:22)
[2017-08-24] MEDS ORDERED: Metoprolol 1 mg/ml Inj IVP ONE ×4 (05:06→12:47)
--- NOTE | 2017-08-24 05:53 | CP.PCM.PN ---
Subjective - Date & Time of Evaluation Date of Evaluation: 08/23/17 Time of Evaluation: 11:10 - Subjective Subjective: Patient seen and examined during round this morning. Patient on Trach collar. Moving all extremities Not in distress Physical examination - Constitutional Appears: Non-toxic, No Acute Distress - Head Exam Head Exam: ATRAUMATIC, NORMAL INSPECTION, NORMOCEPHALIC - Eye Exam Eye Exam: EOMI, Normal appearance, PERRL - ENT Exam ENT Exam: Mucous Membranes Moist. Trach collar - Neck Exam Neck Exam: Full ROM - Respiratory Exam Respiratory Exam: NORMAL BREATHING PATTERN - Cardiovascular Exam Cardiovascular Exam: +S1, +S2 - GI/Abdominal Exam GI & Abdominal Exam: Soft - Extremities Exam Extremities Exam: Full ROM - Neurological Exam Neurological Exam: absent: Alert - Psychiatric Exam Psychiatric exam: Normal Affect, Normal Mood - Skin Skin Exam: Dry, Normal Color Objective - Vital Signs/Intake and Output Vital Signs (last 24 hours): Temp Pulse Resp BP Pulse Ox 99.4 F 106 H 21 149/31 L 100 08/24/17 00:00 08/24/17 01:40 08/24/17 01:40 08/24/17 01:40 08/24/17 01:40 Intake and Output: 08/23/17 08/24/17 18:59 06:59 Intake Total 309.8 116.0 Output Total 75 10 Balance 234.8 106.0 - Medications Medications: Current Medications Acetaminophen (Tylenol 650mg/20.3ml Solution Ud) 650 mg PO Q6 PRN PRN Reason: Temperature Last Admin: 08/19/17 12:11 Dose: 650 mg Albuterol/Ipratropium (Duoneb 3 Mg/0.5 Mg (3 Ml) Ud) 3 ml INH RQ4 [facility] Last Admin: 08/22/17 11:27 Dose: 3 ml Aspirin (Aspirin Chewable) 81 mg PO DAILY [facility] Last Admin: 08/22/17 10:09 Dose: Not Given Enoxaparin Sodium (Lovenox) 30 mg SC DAILY [facility] Last Admin: 08/22/17 10:00 Dose: Not Given Epoetin Chencho (Procrit) 10,000 unit IV MWF [facility] Last Admin: 08/19/17 18:36 Dose: 10,000 unit Famotidine (Pepcid) 20 mg PO DAILY [facility] Last Admin: 08/23/17 12:20 Dose: Not Given Cefepime HCl 1 gm/ Dextrose 50 mls @ 100 mls/hr IVPB Q24H [facility] Last Admin: 08/23/17 14:36 Dose: 100 mls/hr Midazolam HCl 100 mg/ Sodium (Chloride) 100 mls @ 1.67 mls/hr IV .Q24H [facility]; 0.02 MG/KG/HR PRN Reason: Protocol Last Admin: 08/23/17 16:15 Dose: 0.02 mg/kg/hr, 1.67 mls/hr Insulin Aspart (Novolog) 0 unit SC Q6 [facility] PRN Reason: Protocol Last Admin: 08/24/17 00:15 Dose: 4 unit Insulin Detemir (Levemir) 16 unit SC Q12H [facility] Last Admin: 08/23/17 12:20 Dose: Not Given Lactobacillus Acidophilus (Bacid Acidophilus) 1 cap PO BID [facility] Last Admin: 08/23/17 17:59 Dose: Not Given Lorazepam (Ativan) 1 mg IVP Q2H PRN PRN Reason: Anxiety Last Admin: 08/23/17 13:50 Dose: 1 mg Metoprolol Tartrate (Lopressor) 50 mg PO BID [facility] Last Admin: 08/23/17 19:22 Dose: Not Given Rosuvastatin Calcium (Crestor) 10 mg PO HS [facility] Last Admin: 08/23/17 22:05 Dose: 10 mg Sevelamer Carbonate (Renvela) 800 mg PO TIDCC [facility] - Labs Labs: 08/23/17 06:24 08/23/17 06:24 PT 13.0 SECONDS (9.7-12.2) H 08/09/17 23:23 INR 1.2 08/09/17 23:23 APTT 55 SECONDS (21-34) H D 08/17/17 06:12 Assessment and Plan - Assessment and Plan (Free Text) Assessment: Pre Operative Cardiac Risk assessment: 77 Male with hx of CAD, Ischemic cardiomyopathy s/p AICD Low EF and abnormal stress test Recent cardiac arrest/Pulmonary edema CKD on Hemodialysis Now clinically and hemodynamically stable Over all This patient is considered intermediate to high risk for cardiac events for this low risk procedure (PEG insertion) Do not recommend any invasive cardiac procedures such as cath or angioplasty in preparation for PEG insertion Avoid fluid overload If benefit outweighs the risk please proceed with the PEG insertion Will follow. Thank you
[2017-08-24 06:20] LABS: BASO # 0.2 K/uL (0.0-0.2); BASO % 0.9 % (0.0-2.0); EOS # 0.3 K/uL (0.0-0.7); EOS % 1.7 % (0.0-4.0); HEMATOCRIT 29.2 % (35.0-51.0); LYMPH # 1.2 K/uL (1.0-4.3); LYMPH % 6.9 % (20.0-40.0); MEAN CELL VOLUME 74.9 fL (80.0-94.0); MEAN CORPUSCULAR HGB CONC 30.7 g/dL (33.0-37.0); MEAN PLATELET VOLUME 8.3 fL (7.2-11.7); MONO # 1.4 K/uL (0.0-0.8); MONO % 8.2 % (0.0-10.0); PLATELET COUNT 601 K/uL (130-400); RED CELL DISTRIBUTION WIDTH 21.9 % (11.5-14.5); WHITE BLOOD COUNT 17.4 K/uL (4.8-10.8)
[2017-08-24 06:21] LABS: INR 1.2
[2017-08-24 06:25] LABS: POTASSIUM 4.9 mmol/L (3.6-5.2)
[2017-08-24 06:27] LABS: ALB/GLOB RATIO 0.9 (1.0-2.1); BILIRUBIN,TOTAL 0.9 mg/dL (0.2-1.3); TOTAL PROTEIN 7.3 g/dL (6.3-8.3)
[2017-08-24 06:28] LABS: CALCIUM 8.8 mg/dl (8.6-10.4); MAGNESIUM 3.1 mg/dL (1.6-2.3); PHOSPHOROUS 10.8 mg/dL (2.5-4.5)
[2017-08-24] MEDS: Insulin Detemir 100 units/ml Vial (Levemir) SC SCH ×2 (08:38→21:08)
[2017-08-24 08:48] LABS: ABG ALLEN TEST PO; ABG MECHANICAL RATE 14; ARTERIAL BLOOD GAS MODE PRVC; ATERIAL BLOOD GAS PEEP 6; DRAW SITE RRA
[2017-08-24 08:49] LABS: EOSINOPHIL 3 % (0-4); NEUTROPHIL 81 % (50-75); TOTAL CELLS COUNTED 100
--- NOTE | 2017-08-24 09:23 | CP.PCM.PN ---
<Torsten Timmons - Last Filed: 08/24/17 12:59> Subjective - Date & Time of Evaluation Date of Evaluation: 08/24/17 Time of Evaluation: 06:30 - Subjective Subjective: PGY5 GI Fellow Progress Note Patient seen and examined bedside this morning. The patient is sedated and currently tube feeds are being held. No events overnight. 12 system ROS cannot be completed given clinical condition Objective - Vital Signs/Intake and Output Vital Signs (last 24 hours): Temp Pulse Resp BP Pulse Ox 99.4 F 152 H 24 109/48 L 100 08/24/17 00:00 08/24/17 06:40 08/24/17 06:40 08/24/17 06:40 08/24/17 06:40 Intake and Output: 08/24/17 08/24/17 06:59 18:59 Intake Total 119.2 1.6 Output Total 10 Balance 109.2 1.6 - Medications Medications: Current Medications Acetaminophen (Tylenol 650mg/20.3ml Solution Ud) 650 mg PO Q6 PRN PRN Reason: Temperature Last Admin: 08/19/17 12:11 Dose: 650 mg Albuterol/Ipratropium (Duoneb 3 Mg/0.5 Mg (3 Ml) Ud) 3 ml INH RQ4 [facility] Last Admin: 08/22/17 11:27 Dose: 3 ml Aspirin (Aspirin Chewable) 81 mg PO DAILY [facility] Last Admin: 08/22/17 10:09 Dose: Not Given Enoxaparin Sodium (Lovenox) 30 mg SC DAILY [facility] Last Admin: 08/22/17 10:00 Dose: Not Given Epoetin Chencho (Procrit) 10,000 unit IV MWF [facility] Last Admin: 08/19/17 18:36 Dose: 10,000 unit Famotidine (Pepcid) 20 mg PO DAILY [facility] Last Admin: 08/23/17 12:20 Dose: Not Given Cefepime HCl 1 gm/ Dextrose 50 mls @ 100 mls/hr IVPB Q24H [facility] Last Admin: 08/23/17 14:36 Dose: 100 mls/hr Midazolam HCl 100 mg/ Sodium (Chloride) 100 mls @ 1.67 mls/hr IV .Q24H [facility]; 0.02 MG/KG/HR PRN Reason: Protocol Last Admin: 09/26/17 16:15 Dose: 0.02 mg/kg/hr, 1.67 mls/hr Insulin Aspart (Novolog) 0 unit SC Q6 [facility] PRN Reason: Protocol Last Admin: 08/24/17 07:00 Dose: 3 unit Insulin Detemir (Levemir) 16 unit SC Q12H [facility] Last Admin: 08/24/17 08:38 Dose: 16 unit Lactobacillus Acidophilus (Bacid Acidophilus) 1 cap PO BID [facility] Last Admin: 08/23/17 17:59 Dose: Not Given Lorazepam (Ativan) 1 mg IVP Q2H PRN PRN Reason: Anxiety Last Admin: 08/23/17 13:50 Dose: 1 mg Metoprolol Tartrate (Lopressor) 50 mg PO BID [facility] Last Admin: 08/23/17 19:22 Dose: Not Given Rosuvastatin Calcium (Crestor) 10 mg PO HS [facility] Last Admin: 08/23/17 22:05 Dose: 10 mg Sevelamer Carbonate (Renvela) 800 mg PO TIDCC [facility] Last Admin: 08/24/17 08:37 Dose: 800 mg - Labs Labs: 08/24/17 06:08 08/24/17 06:08 PT 13.9 SECONDS (9.7-12.2) H 08/24/17 06:08 INR 1.2 08/24/17 06:08 APTT 55 SECONDS (21-34) H D 08/17/17 06:12 - Constitutional Appears: No Acute Distress, Chronically Ill - Eye Exam Eye Exam: PERRL - ENT Exam ENT Exam: Mucous Membranes Dry Additional comments: OGT in place, tracheostomy present - Respiratory Exam Respiratory Exam: Rales. absent: Clear to Ausculation Bilateral, Rhonchi, Wheezes - Cardiovascular Exam Cardiovascular Exam: RRR, +S1, +S2 - GI/Abdominal Exam GI & Abdominal Exam: Distended, Soft, Normal Bowel Sounds. absent: Firm, Guarding, Rigid, Tenderness, Organomegaly - Extremities Exam Extremities Exam: Normal Inspection. absent: Pedal Edema - Neurological Exam Additional comments: sedated - Skin Skin Exam: Dry, Warm Assessment and Plan - Assessment and Plan (Free Text) Assessment: Patient is a 77yo male with PMHx significant for CAD, CHF, HTN, HLD, DM2, CKD, anemia and DVT with prior use of Eliquis who initially presented to the ED with SOB and chest pain. He has since suffered cardiopulmonary arrest and is s/p ACLS protocol with ROSC. Pt intubated and s/p tracheostomy. -Acute respiratory failure requiring mechanical ventilation -NSTEMI and cardiac arrest during this hospitalization -Pneumonia -B/L pleural effusions -Systolic CHF with acute exacerbation -Malnutrition as a result of critical illness, on OGT feeding Plan: -Patient will require intermodal customer service rehabilitation from a pulmonary standpoint and has not been able to take PO meds/food -Patient will benefit from PEG placement for ongoing feeding -Cleared from a cardiology standpoint for procedure as benefit outweighs risk currently -Will discuss case with pulmonology prior to proceeding -Consent obtained from patient's and placed on chart <Stefan Dsouza - Last Filed: 08/24/17 15:11> Objective - Vital Signs/Intake and Output Vital Signs (last 24 hours): Temp Pulse Resp BP Pulse Ox 98.3 F 145 H 17 103/44 L 97 08/24/17 12:15 08/24/17 14:30 08/24/17 14:30 08/24/17 14:30 08/24/17 14:30 Intake and Output: 08/24/17 08/24/17 06:59 18:59 Intake Total 119.2 132.8 Output Total 10 0 Balance 109.2 132.8 - Medications Medications: Current Medications Acetaminophen (Tylenol 650mg/20.3ml Solution Ud) 650 mg PO Q6 PRN PRN Reason: Temperature Last Admin: 08/19/17 12:11 Dose: 650 mg Albuterol/Ipratropium (Duoneb 3 Mg/0.5 Mg (3 Ml) Ud) 3 ml INH RQ4 [facility] Last Admin: 08/22/17 11:27 Dose: 3 ml Aspirin (Aspirin Chewable) 81 mg PO DAILY [facility] Last Admin: 08/22/17 10:09 Dose: Not Given Enoxaparin Sodium (Lovenox) 30 mg SC DAILY [facility] Last Admin: 08/22/17 10:00 Dose: Not Given Epoetin Chencho (Procrit) 10,000 unit IV MWF [facility] Last Admin: 08/24/17 09:49 Dose: 10,000 unit Famotidine (Pepcid) 20 mg PO DAILY [facility] Last Admin: 08/24/17 13:06 Dose: 20 mg Cefepime HCl 1 gm/ Dextrose 50 mls @ 100 mls/hr IVPB Q24H [facility] Last Admin: 08/24/17 13:10 Dose: 100 mls/hr Midazolam HCl 100 mg/ Sodium (Chloride) 100 mls @ 1.67 mls/hr IV .Q24H [facility]; 0.02 MG/KG/HR PRN Reason: Protocol Last Admin: 08/23/17 16:15 Dose: 0.02 mg/kg/hr, 1.67 mls/hr Insulin Aspart (Novolog) 0 unit SC Q6 [facility] PRN Reason: Protocol Last Admin: 08/24/17 13:10 Dose: 1 unit Insulin Detemir (Levemir) 16 unit SC Q12H [facility] Last Admin: 08/24/17 08:38 Dose: 16 unit Lactobacillus Acidophilus (Bacid Acidophilus) 1 cap PO BID [facility] Last Admin: 08/24/17 13:07 Dose: 1 cap Lorazepam (Ativan) 1 mg IVP Q2H PRN PRN Reason: Anxiety Last Admin: 08/23/17 13:50 Dose: 1 mg Metoprolol Tartrate (Lopressor) 50 mg PO BID [facility] Last Admin: 08/24/17 13:47 Dose: Not Given Rosuvastatin Calcium (Crestor) 10 mg PO HS [facility] Last Admin: 08/23/17 22:05 Dose: 10 mg Sevelamer Carbonate (Renvela) 2,400 mg PO TIDCC [facility] - Labs Labs: 08/24/17 06:08 08/24/17 06:08 PT 13.9 SECONDS (9.7-12.2) H 08/24/17 06:08 INR 1.2 08/24/17 06:08 APTT 55 SECONDS (21-34) H D 08/17/17 06:12 Attending/Attestation - Attestation I have personally seen and examined this patient.: Yes I have fully participated in the care of the patient.: Yes I have reviewed all pertinent clinical information, including history, physical exam and plan: Yes Notes (Text): 08/24/17 15:10 77 year old male with h/o CAD, CHF, HTN, HLD, DM CKD, DVT admitted to ICU after cardiac arresst now with vent dependent respiratory failure s/p trach. 1. Malnutrition Plan: -plan for PEG when medically stable/optimized -possibly tomorrow depending on clinical course
[2017-08-24] MEDS: EPOETIN ALFA 10,000 UNIT/ML ML IV SCH ×2 (09:48→09:49)
--- NOTE | 2017-08-24 11:10 | CP.PCM.PN ---
<Darryl Roe - Last Filed: 08/24/17 11:49> Subjective - Date & Time of Evaluation Date of Evaluation: 08/24/17 Time of Evaluation: 09:10 - Subjective Subjective: Cardiology Progress Note- Dr. Cortés's service Patient seen and examined and minimally responsive at this time. No acute events per nursing. Patient intubated but not on sedation. Patient s/p tracheostomy. Patient to have PEG procedure performed pending consent. Patient not able to respond to ROS at this time due to his status. Objective - Vital Signs/Intake and Output Vital Signs (last 24 hours): Temp Pulse Resp BP Pulse Ox 98.1 F 96 H 26 H 100/46 L 100 08/24/17 09:15 08/24/17 10:00 08/24/17 10:00 08/24/17 10:15 08/24/17 10:00 Intake and Output: 08/24/17 08/24/17 06:59 18:59 Intake Total 119.2 1.6 Output Total 10 Balance 109.2 1.6 - Medications Medications: Current Medications Acetaminophen (Tylenol 650mg/20.3ml Solution Ud) 650 mg PO Q6 PRN PRN Reason: Temperature Last Admin: 08/19/17 12:11 Dose: 650 mg Albuterol/Ipratropium (Duoneb 3 Mg/0.5 Mg (3 Ml) Ud) 3 ml INH RQ4 [facility] Last Admin: 08/22/17 11:27 Dose: 3 ml Aspirin (Aspirin Chewable) 81 mg PO DAILY [facility] Last Admin: 08/22/17 10:09 Dose: Not Given Enoxaparin Sodium (Lovenox) 30 mg SC DAILY [facility] Last Admin: 08/22/17 10:00 Dose: Not Given Epoetin Chencho (Procrit) 10,000 unit IV MWF [facility] Last Admin: 08/24/17 09:49 Dose: 10,000 unit Famotidine (Pepcid) 20 mg PO DAILY [facility] Last Admin: 08/23/17 12:20 Dose: Not Given Cefepime HCl 1 gm/ Dextrose 50 mls @ 100 mls/hr IVPB Q24H [facility] Last Admin: 08/23/17 14:36 Dose: 100 mls/hr Midazolam HCl 100 mg/ Sodium (Chloride) 100 mls @ 1.67 mls/hr IV .Q24H [facility]; 0.02 MG/KG/HR PRN Reason: Protocol Last Admin: 08/23/17 16:15 Dose: 0.02 mg/kg/hr, 1.67 mls/hr Insulin Aspart (Novolog) 0 unit SC Q6 [facility] PRN Reason: Protocol Last Admin: 08/24/17 07:00 Dose: 3 unit Insulin Detemir (Levemir) 16 unit SC Q12H [facility] Last Admin: 08/24/17 08:38 Dose: 16 unit Lactobacillus Acidophilus (Bacid Acidophilus) 1 cap PO BID [facility] Last Admin: 08/23/17 17:59 Dose: Not Given Lorazepam (Ativan) 1 mg IVP Q2H PRN PRN Reason: Anxiety Last Admin: 08/23/17 13:50 Dose: 1 mg Metoprolol Tartrate (Lopressor) 50 mg PO BID [facility] Last Admin: 08/23/17 19:22 Dose: Not Given Rosuvastatin Calcium (Crestor) 10 mg PO HS [facility] Last Admin: 08/23/17 22:05 Dose: 10 mg Sevelamer Carbonate (Renvela) 800 mg PO TIDCC [facility] Last Admin: 08/24/17 08:37 Dose: 800 mg - Labs Labs: 08/24/17 06:08 08/24/17 06:08 PT 13.9 SECONDS (9.7-12.2) H 08/24/17 06:08 INR 1.2 08/24/17 06:08 APTT 55 SECONDS (21-34) H D 08/17/17 06:12 - Constitutional Appears: Non-toxic, Chronically Ill, Other (central obesity) - Head Exam Head Exam: ATRAUMATIC, NORMOCEPHALIC - Eye Exam Eye Exam: EOMI, Normal appearance - ENT Exam ENT Exam: Mucous Membranes Moist Additional comments: trach collar in place - Respiratory Exam Respiratory Exam: NORMAL BREATHING PATTERN - Cardiovascular Exam Cardiovascular Exam: +S1, +S2 - GI/Abdominal Exam GI & Abdominal Exam: Soft, Normal Bowel Sounds - Extremities Exam Extremities Exam: Full ROM - Back Exam Back Exam: Full ROM - Neurological Exam Neurological Exam: absent: Alert, Awake - Skin Skin Exam: Dry, Warm Assessment and Plan (1) Chest pain Status: Acute (2) CHF exacerbation Status: Chronic (3) Pneumonia Status: Acute (4) CAD (coronary artery disease) Status: Acute (5) HTN (hypertension) Status: Chronic (6) CKD (chronic kidney disease) Status: Acute (7) Diabetes mellitus Status: Chronic (8) HLD (hyperlipidemia) Status: Chronic (9) Constipation Status: Chronic (10) Anemia Status: Chronic (11) History of DVT (deep vein thrombosis) Status: Acute (12) Prophylactic measure Status: Acute - Assessment and Plan (Free Text) Assessment: Pre-Operative Risk Assessment Considerations for PEG placement This is an intermediate to high risk for cardiac event for this low risk procedure (PEG insertion) DETSKY score of 25 which is indicative of a 20% risk of cardiac complications for a non-cardiologic procedure Considerations to avoid fluid overload. If benefits outweigh risks, may proceed with PEG placement CAD, chest pain -No plans for cardiac cath (acute respiratory failure and elevated Cr), history of abnormal stress test -Elevated Troponin likely due to chest compressions during cardiac arrest 08/10 -No acute ST changes on EKG -Continue heparin drip, ASA, Plavix, Crestor, Metoprolol -Echocardiogram from 08/08/17 showed left ventricle systolic function is severely impaired. EF: 25-30%; global hypokinesis of LV mild AR. MR is moderate. Moderate-severe pulmonary hypertension -Recommend prophylaxis lovenox Systolic CHF exacerbation -BNP 82630 on 08/06/17 -Continue ASA, Plavix, Crestor, Metoprolol -Echocardiogram from 08/08/17 showed left ventricle systolic function is severely impaired. EF: 25-30%; global hypokinesis of LV mild AR. MR is moderate. -Moderate-severe pulmonary hypertesnion Dobutamine discontinued in light of atrial flutter-type episodes Prophylaxis -Pepcid 20 mg PO daily -Lovenox 30 SC daily Discussed with attending. All management and planning per Dr. Cortés <Sina Cortés - Last Filed: 08/25/17 21:33> Objective - Vital Signs/Intake and Output Vital Signs (last 24 hours): Temp Pulse Resp BP Pulse Ox 97.4 F L 81 20 117/47 L 98 08/25/17 20:00 08/25/17 20:07 08/25/17 20:07 08/25/17 20:07 08/25/17 20:07 Intake and Output: 08/25/17 08/26/17 18:59 06:59 Intake Total 276.9 33.4 Balance 276.9 33.4 - Medications Medications: Current Medications Acetaminophen (Tylenol 650mg/20.3ml Solution Ud) 650 mg PO Q6 PRN PRN Reason: Temperature Last Admin: 08/19/17 12:11 Dose: 650 mg Albuterol/Ipratropium (Duoneb 3 Mg/0.5 Mg (3 Ml) Ud) 3 ml INH RQ4 [facility] Last Admin: 08/22/17 11:27 Dose: 3 ml Amiodarone HCl (Cordarone) 200 mg PO TID [facility] Aspirin (Aspirin Chewable) 81 mg PO DAILY [facility] Last Admin: 08/22/17 10:09 Dose: Not Given Calcium Acetate (Phoslo) 667 mg GT TID [facility] Last Admin: 08/25/17 17:51 Dose: Not Given Enoxaparin Sodium (Lovenox) 30 mg SC DAILY [facility] Last Admin: 08/22/17 10:00 Dose: Not Given Epoetin Chencho (Procrit) 10,000 unit IV MWF [facility] Last Admin: 08/24/17 09:49 Dose: 10,000 unit Famotidine (Pepcid) 20 mg PO DAILY [facility] Last Admin: 08/25/17 10:00 Dose: Not Given Cefepime HCl 1 gm/ Dextrose 50 mls @ 100 mls/hr IVPB Q24H [facility] Last Admin: 08/25/17 12:51 Dose: 100 mls/hr Midazolam HCl 100 mg/ Sodium (Chloride) 100 mls @ 1.67 mls/hr IV .Q24H [facility]; 0.02 MG/KG/HR PRN Reason: Protocol Last Admin: 08/25/17 16:00 Dose: Not Given Vancomycin/Sodium Chloride (Vancocin) 1 gm in 200 mls @ 133.333 mls/hr IVPB STAT ST[facility] Stop: 08/25/17 21:46 Insulin Aspart (Novolog) 0 unit SC Q6 [facility] PRN Reason: Protocol Last Admin: 08/25/17 18:00 Dose: Not Given Insulin Detemir (Levemir) 16 unit SC Q12H [facility] Last Admin: 08/25/17 21:22 Dose: 16 unit Lactobacillus Acidophilus (Bacid Acidophilus) 1 cap PO BID [facility] Last Admin: 08/25/17 17:32 Dose: 1 cap Lorazepam (Ativan) 1 mg IVP Q2H PRN PRN Reason: Anxiety Last Admin: 08/23/17 13:50 Dose: 1 mg Metoprolol Tartrate (Lopressor) 50 mg PO BID [facility] Last Admin: 08/25/17 17:32 Dose: 50 mg Rosuvastatin Calcium (Crestor) 10 mg PO HS [facility] Last Admin: 08/25/17 21:23 Dose: 10 mg - Labs Labs: 08/25/17 06:19 08/25/17 06:19 PT 13.9 SECONDS (9.7-12.2) H 08/24/17 06:08 INR 1.2 08/24/17 06:08 APTT 55 SECONDS (21-34) H D 08/17/17 06:12 Assessment and Plan - Assessment and Plan (Free Text) Assessment: Patient seen and evaluated with the medical records auditor Plan of care as documented
--- NOTE | 2017-08-24 12:14 | RAD ---
HISTORY: on vent COMPARISON: Comparison is made to 08/22/2017 FINDINGS: LUNGS: The tracheostomy tube is seen at appropriate position. There is focal heterogeneous opacity at the right lower lung. Mild pulmonary vascular congestion is noted. Otherwise no interval change in the lungs. PLEURA: Left pleural effusion is again noted. There is drainage catheter at the right pleural space P CARDIOVASCULAR: The cardiac silhouette is enlarged. Left-sided single wire pacemaker is again seen in place. OSSEOUS STRUCTURES: No significant abnormalities. VISUALIZED UPPER ABDOMEN: Normal. OTHER FINDINGS: Right-sided hemodialysis catheter seen in place. NG tube seen extending to the abdomen. IMPRESSION: Heterogeneous opacity at the right lower lung. [id number] pulmonary vascular congestion. Appropriate position of the support devices.
[2017-08-24] MEDS: Lactobacillus Acidophilus 500 MU Cap PO SCH ×2 (13:07→17:33)
--- NOTE | 2017-08-24 15:55 | CP.CCUPN ---
<BenitoLacyjerilyn E - Last Filed: 08/24/17 16:14> CCU Subjective - Physician Review Subjective (Free Text): Patient seen and examined at bedside. Patient was receiving dialysis during the encounter. Patient is with tracheostomy. Patient's was at bedside. As per nursing, there were no acute issues overnight. CCU Objective - Vital Signs / Intake & Output Vital Signs (Last 4 hours): Vital Signs Temp Pulse Pulse Resp BP BP Pulse Ox 08/24/17 15:29 138 H 23 107/51 L 99 08/24/17 15:14 131 H 17 109/48 L 99 08/24/17 15:00 140 H 24 100/48 L 99 08/24/17 14:45 143 H 17 106/44 L 97 08/24/17 14:30 145 H 17 103/44 L 97 08/24/17 14:15 140 H 14 106/43 L 98 08/24/17 14:02 133 H 25 H 117/45 L 97 08/24/17 14:00 130 H 23 97 08/24/17 13:45 127 H 21 116/32 L 97 08/24/17 13:30 117 H 29 H 124/40 L 99 08/24/17 13:14 122 H 13 114/42 L 99 08/24/17 13:00 161 H 20 98 08/24/17 12:59 153 H 26 H 104/40 L 98 08/24/17 12:45 150 H 14 110/68 98 08/24/17 12:29 159 H 26 H 101/47 L 99 08/24/17 12:19 141 H 32 H 87/42 L 98 08/24/17 12:15 98.3 F 136 H 163 H 26 H 76/45 L 75/45 L 99 08/24/17 12:00 98.2 F 133 H 25 H 93/41 L 100 Intake and Output (Last 8hrs): Intake & Output 08/24/17 08/24/17 08/24/17 06:59 14:59 22:59 Intake Total 72.8 582.8 1.6 Output Total 10 0 0 Balance 62.8 582.8 1.6 Weight 185 lb Intake: Intake, IV Amount 12.8 62.8 1.6 Right Medial Port 50 Right Proximal Port 12.8 12.8 1.6 Tube Feeding 60 120 Other 400 Output: Urine 10 0 0 Urethral (Sanchez) 10 0 0 Other: # Bowel Movements 0 0 - Physical Exam Head: Positive for: Atraumatic Respiratory/Chest: Positive for: Clear to Auscultation, Other (Tracheostomy ) Cardiovascular: Positive for: Regular Rate and Rhythm, Normal S1, S2, Tachycardic Abdomen: Positive for: Distention, Normal Bowel Sounds, Other (obese habitus) Lower Extremity: Negative for: Edema, Swelling Skin: Positive for: Warm, Dry - Medications Active Medications: Active Medications Generic Name Dose Route Start Last Admin Trade Name Freq PRN Reason Stop Dose Admin Acetaminophen 650 mg 08/11/17 17:40 08/19/17 12:11 Tylenol 650mg/20.3ml Solution Ud PO 650 mg Q6 PRN Administration Temperature Albuterol/Ipratropium 3 ml 08/18/17 12:00 08/22/17 11:27 Duoneb 3 Mg/0.5 Mg (3 Ml) Ud INH 3 ml RQ4 LUIS FERNANDO Administration Aspirin 81 mg 08/14/17 11:15 08/22/17 10:09 Aspirin Chewable PO Not Given DAILY LUIS FERNANDO Enoxaparin Sodium 30 mg 08/17/17 10:00 08/22/17 10:00 Lovenox SC Not Given DAILY LUIS FERNANDO Epoetin Chencho 10,000 unit 08/17/17 14:00 08/24/17 09:49 Procrit IV 10,000 unit MWF LUIS FERNANDO Administration Famotidine 20 mg 08/09/17 10:00 08/24/17 13:06 Pepcid PO 20 mg DAILY LUIS FERNANDO Administration Cefepime HCl 1 gm/ Dextrose 50 mls @ 100 mls/hr 08/19/17 12:00 08/24/17 13:10 IVPB 100 mls/hr Q24H LUIS FERNANDO Administration Midazolam HCl 100 mg/ Sodium 100 mls @ 1.67 mls/hr 08/23/17 16:00 08/23/17 16 :15 Chloride IV 0.02 mg/kg/hr .Q24H LUIS FERNANDO 1.67 mls/hr Protocol Administration 0.02 MG/KG/HR Insulin Aspart 0 unit 08/23/17 13:34 08/24/17 13:10 Novolog SC 1 unit Q6 LUIS FERNANDO Administration Protocol Insulin Detemir 16 unit 08/20/17 08:18 08/24/17 08:38 Levemir SC 16 unit Q12H LUIS FERNANDO Administration Lactobacillus Acidophilus 1 cap 08/13/17 18:00 08/24/17 13:07 Bacid Acidophilus PO 1 cap BID LUIS FERNANDO Administration Lorazepam 1 mg 08/23/17 10:28 08/23/17 13:50 Ativan IVP 1 mg Q2H PRN Administration Anxiety Metoprolol Tartrate 50 mg 08/22/17 09:09 08/24/17 13:47 Lopressor PO Not Given BID LUIS FERNANDO Rosuvastatin Calcium 10 mg 08/06/17 22:00 08/23/17 22:05 Crestor PO 10 mg HS LUIS FERNANDO Administration Sevelamer Carbonate 2,400 mg 08/24/17 14:24 Renvela PO TIDCC LUIS FERNANDO - Patient Studies Lab Studies: Lab Studies 08/24/17 08/24/17 08/24/17 Range/Units 12:03 08:44 06:08 WBC (4.8-10.8) K/uL RBC (4.40-5.90) Mil/uL Hgb (12.0-18.0) g/dL Hct (35.0-51.0) % MCV (80.0-94.0) fL MCH (27.0-31.0) pg MCHC (33.0-37.0) g/dL RDW (11.5-14.5) % Plt Count (130-400) K/uL MPV (7.2-11.7) fL Neut % (Auto) (50.0-75.0) % Lymph % (Auto) (20.0-40.0) % [place] % (Auto) (0.0-10.0) % Eos % (Auto) (0.0-4.0) % Baso % (Auto) (0.0-2.0) % Neut # (1.8-7.0) K/uL Lymph # (1.0-4.3) K/uL [place] # (0.0-0.8) K/uL Eos # (0.0-0.7) K/uL Baso # (0.0-0.2) K/uL Neutrophils % (Manual) (50-75) % Lymphocytes % (Manual) (20-40) % Monocytes % (Manual) (0-10) % Eosinophils % (Manual) (0-4) % Platelet Estimate (NORMAL) Hypochromasia (manual) Anisocytosis (manual) Microcytosis (manual) Ovalocytes PT 13.9 H (9.7-12.2) SECONDS INR 1.2 Puncture Site Rra pCO2 36 (35-45) mm/Hg pO2 98 (80-100) mm/Hg HCO3 24.4 (21-28) mmol/L ABG pH 7.42 (7.35-7.45) ABG Total CO2 24.5 (22-28) mmol/L ABG O2 Saturation 99.3 H (95-98) % ABG Base Excess -0.7 (-2.0-3.0) mmol/L Ruiel Test Po ABG Potassium 4.8 (3.6-5.2) mmol/L A-a O2 Difference 285.0 mm/Hg Respiratory Index 2.9 Glucose 282 H (75-110) mg/dl Lactate 1.1 (0.7-2.1) mmol/L Vent Mode Prvc Mechanical Rate 14 FiO2 60.0 % Tidal Volume 450 PEEP 6 Sodium 137.0 (132-148) mmol/L Potassium (3.6-5.2) mmol/L Chloride 100.0 (98-107) mmol/L Carbon Dioxide (22-30) mmol/L Anion Gap (10-20) BUN (9-20) mg/dL Creatinine (0.8-1.5) MG/DL Est GFR ( Amer) Est GFR (Non-Af Amer) POC Glucose (mg/dL) 170 H (65-110) mg/dL Random Glucose (75-110) mg/dL Calcium (8.6-10.4) mg/dl Phosphorus (2.5-4.5) mg/dL Magnesium (1.6-2.3) mg/dL Total Bilirubin (0.2-1.3) mg/dL AST (17-59) U/L ALT (21-72) U/L Alkaline Phosphatase (38-126) U/L Total Protein (6.3-8.3) g/dL Albumin (3.5-5.0) g/dL Globulin (2.2-3.9) gm/dL Albumin/Globulin Ratio (1.0-2.1) Arterial Blood Potassium 4.8 (3.6-5.2) mmol/L 08/24/17 08/24/17 08/24/17 Range/Units 06:08 06:08 05:32 WBC 17.4 H (4.8-10.8) K/uL RBC 3.89 L (4.40-5.90) Mil/uL Hgb 8.9 L (12.0-18.0) g/dL Hct 29.2 L (35.0-51.0) % MCV 74.9 L (80.0-94.0) fL MCH 23.0 L (27.0-31.0) pg MCHC 30.7 L (33.0-37.0) g/dL RDW 21.9 H (11.5-14.5) % Plt Count 601 H (130-400) K/uL MPV 8.3 (7.2-11.7) fL Neut % (Auto) 82.3 H (50.0-75.0) % Lymph % (Auto) 6.9 L (20.0-40.0) % [place] % (Auto) 8.2 (0.0-10.0) % Eos % (Auto) 1.7 (0.0-4.0) % Baso % (Auto) 0.9 (0.0-2.0) % Neut # 14.3 H (1.8-7.0) K/uL Lymph # 1.2 (1.0-4.3) K/uL [place] # 1.4 H (0.0-0.8) K/uL Eos # 0.3 (0.0-0.7) K/uL Baso # 0.2 (0.0-0.2) K/uL Neutrophils % (Manual) 81 H (50-75) % Lymphocytes % (Manual) 8 L (20-40) % Monocytes % (Manual) 8 (0-10) % Eosinophils % (Manual) 3 (0-4) % Platelet Estimate Increased H (NORMAL) Hypochromasia (manual) Slight Anisocytosis (manual) Slight Microcytosis (manual) Slight Ovalocytes Slight PT (9.7-12.2) SECONDS INR Puncture Site pCO2 (35-45) mm/Hg pO2 (80-100) mm/Hg HCO3 (21-28) mmol/L ABG pH (7.35-7.45) ABG Total CO2 (22-28) mmol/L ABG O2 Saturation (95-98) % ABG Base Excess (-2.0-3.0) mmol/L Uriel Test ABG Potassium (3.6-5.2) mmol/L A-a O2 Difference mm/Hg Respiratory Index Glucose (75-110) mg/dl Lactate (0.7-2.1) mmol/L Vent Mode Mechanical Rate FiO2 % Tidal Volume PEEP Sodium 137 (132-148) mmol/L Potassium 4.9 (3.6-5.2) mmol/L Chloride 92 L (98-107) mmol/L Carbon Dioxide 23 (22-30) mmol/L Anion Gap 27 H (10-20) BUN 76 H (9-20) mg/dL Creatinine 6.2 H (0.8-1.5) MG/DL Est GFR ( Amer) 11 Est GFR (Non-Af Amer) 9 POC Glucose (mg/dL) 278 H (65-110) mg/dL Random Glucose 241 H (75-110) mg/dL Calcium 8.8 (8.6-10.4) mg/dl Phosphorus 10.8 H (2.5-4.5) mg/dL Magnesium 3.1 H (1.6-2.3) mg/dL Total Bilirubin 0.9 (0.2-1.3) mg/dL AST 80 H D (17-59) U/L ALT 72 (21-72) U/L Alkaline Phosphatase 179 H (38-126) U/L Total Protein 7.3 (6.3-8.3) g/dL Albumin 3.5 (3.5-5.0) g/dL Globulin 3.8 (2.2-3.9) gm/dL Albumin/Globulin Ratio 0.9 L (1.0-2.1) Arterial Blood Potassium (3.6-5.2) mmol/L 08/24/17 08/23/17 Range/Units 00:09 17:43 WBC (4.8-10.8) K/uL RBC (4.40-5.90) Mil/uL Hgb (12.0-18.0) g/dL Hct (35.0-51.0) % MCV (80.0-94.0) fL MCH (27.0-31.0) pg MCHC (33.0-37.0) g/dL RDW (11.5-14.5) % Plt Count (130-400) K/uL MPV (7.2-11.7) fL Neut % (Auto) (50.0-75.0) % Lymph % (Auto) (20.0-40.0) % [place] % (Auto) (0.0-10.0) % Eos % (Auto) (0.0-4.0) % Baso % (Auto) (0.0-2.0) % Neut # (1.8-7.0) K/uL Lymph # (1.0-4.3) K/uL [place] # (0.0-0.8) K/uL Eos # (0.0-0.7) K/uL Baso # (0.0-0.2) K/uL Neutrophils % (Manual) (50-75) % Lymphocytes % (Manual) (20-40) % Monocytes % (Manual) (0-10) % Eosinophils % (Manual) (0-4) % Platelet Estimate (NORMAL) Hypochromasia (manual) Anisocytosis (manual) Microcytosis (manual) Ovalocytes PT (9.7-12.2) SECONDS INR Puncture Site pCO2 (35-45) mm/Hg pO2 (80-100) mm/Hg HCO3 (21-28) mmol/L ABG pH (7.35-7.45) ABG Total CO2 (22-28) mmol/L ABG O2 Saturation (95-98) % ABG Base Excess (-2.0-3.0) mmol/L Uriel Test ABG Potassium (3.6-5.2) mmol/L A-a O2 Difference mm/Hg Respiratory Index Glucose (75-110) mg/dl Lactate (0.7-2.1) mmol/L Vent Mode Mechanical Rate FiO2 % Tidal Volume PEEP Sodium (132-148) mmol/L Potassium (3.6-5.2) mmol/L Chloride (98-107) mmol/L Carbon Dioxide (22-30) mmol/L Anion Gap (10-20) BUN (9-20) mg/dL Creatinine (0.8-1.5) MG/DL Est GFR ( Amer) Est GFR (Non-Af Amer) POC Glucose (mg/dL) 309 H 242 H (65-110) mg/dL Random Glucose (75-110) mg/dL Calcium (8.6-10.4) mg/dl Phosphorus (2.5-4.5) mg/dL Magnesium (1.6-2.3) mg/dL Total Bilirubin (0.2-1.3) mg/dL AST (17-59) U/L ALT (21-72) U/L Alkaline Phosphatase (38-126) U/L Total Protein (6.3-8.3) g/dL Albumin (3.5-5.0) g/dL Globulin (2.2-3.9) gm/dL Albumin/Globulin Ratio (1.0-2.1) Arterial Blood Potassium (3.6-5.2) mmol/L Laboratory Results - last 24 hr 08/23/17 08/24/17 08/24/17 17:43 00:09 05:32 WBC RBC Hgb Hct MCV MCH MCHC RDW Plt Count MPV Neut % (Auto) Lymph % (Auto) [place] % (Auto) Eos % (Auto) Baso % (Auto) Neut # Lymph # [place] # Eos # Baso # Neutrophils % (Manual) Lymphocytes % (Manual) Monocytes % (Manual) Eosinophils % (Manual) Platelet Estimate Hypochromasia (manual) Anisocytosis (manual) Microcytosis (manual) Ovalocytes PT INR Puncture Site pCO2 pO2 HCO3 ABG pH ABG Total CO2 ABG O2 Saturation ABG Base Excess Uriel Test ABG Potassium A-a O2 Difference Respiratory Index Glucose Lactate Vent Mode Mechanical Rate FiO2 Tidal Volume PEEP Sodium Potassium Chloride Carbon Dioxide Anion Gap BUN Creatinine Est GFR ( Amer) Est GFR (Non-Af Amer) POC Glucose (mg/dL) 242 H 309 H 278 H Random Glucose Calcium Phosphorus Magnesium Total Bilirubin AST ALT Alkaline Phosphatase Total Protein Albumin Globulin Albumin/Globulin Ratio Arterial Blood Potassium 08/24/17 08/24/17 08/24/17 06:08 06:08 06:08 WBC 17.4 H RBC 3.89 L Hgb 8.9 L Hct 29.2 L MCV 74.9 L MCH 23.0 L MCHC 30.7 L RDW 21.9 H Plt Count 601 H MPV 8.3 Neut % (Auto) 82.3 H Lymph % (Auto) 6.9 L [place] % (Auto) 8.2 Eos % (Auto) 1.7 Baso % (Auto) 0.9 Neut # 14.3 H Lymph # 1.2 [place] # 1.4 H Eos # 0.3 Baso # 0.2 Neutrophils % (Manual) 81 H Lymphocytes % (Manual) 8 L Monocytes % (Manual) 8 Eosinophils % (Manual) 3 Platelet Estimate Increased H Hypochromasia (manual) Slight Anisocytosis (manual) Slight Microcytosis (manual) Slight Ovalocytes Slight PT 13.9 H INR 1.2 Puncture Site pCO2 pO2 HCO3 ABG pH ABG Total CO2 ABG O2 Saturation ABG Base Excess Uriel Test ABG Potassium A-a O2 Difference Respiratory Index Glucose Lactate Vent Mode Mechanical Rate FiO2 Tidal Volume PEEP Sodium 137 Potassium 4.9 Chloride 92 L Carbon Dioxide 23 Anion Gap 27 H BUN 76 H Creatinine 6.2 H Est GFR ( Amer) 11 Est GFR (Non-Af Amer) 9 POC Glucose (mg/dL) Random Glucose 241 H Calcium 8.8 Phosphorus 10.8 H Magnesium 3.1 H Total Bilirubin 0.9 AST 80 H D ALT 72 Alkaline Phosphatase 179 H Total Protein 7.3 Albumin 3.5 Globulin 3.8 Albumin/Globulin Ratio 0.9 L Arterial Blood Potassium 08/24/17 08/24/17 08:44 12:03 WBC RBC Hgb Hct MCV MCH MCHC RDW Plt Count MPV Neut % (Auto) Lymph % (Auto) [place] % (Auto) Eos % (Auto) Baso % (Auto) Neut # Lymph # [place] # Eos # Baso # Neutrophils % (Manual) Lymphocytes % (Manual) Monocytes % (Manual) Eosinophils % (Manual) Platelet Estimate Hypochromasia (manual) Anisocytosis (manual) Microcytosis (manual) Ovalocytes PT INR Puncture Site Rra pCO2 36 pO2 98 HCO3 24.4 ABG pH 7.42 ABG Total CO2 24.5 ABG O2 Saturation 99.3 H ABG Base Excess -0.7 Uriel Test Po ABG Potassium 4.8 A-a O2 Difference 285.0 Respiratory Index 2.9 Glucose 282 H Lactate 1.1 Vent Mode Prvc Mechanical Rate 14 FiO2 60.0 Tidal Volume 450 PEEP 6 Sodium 137.0 Potassium Chloride 100.0 Carbon Dioxide Anion Gap BUN Creatinine Est GFR ( Amer) Est GFR (Non-Af Amer) POC Glucose (mg/dL) 170 H Random Glucose Calcium Phosphorus Magnesium Total Bilirubin AST ALT Alkaline Phosphatase Total Protein Albumin Globulin Albumin/Globulin Ratio Arterial Blood Potassium 4.8 EKG/Cardiology Studies: Cardiology / EKG Studies 08/24/17 07:47 ELECTROCARDIOGRAM Stat Comment: Mode Of Transportation: Reason For Exam: tachycardia regular Fingerstick Blood Sugar Results: 286 Review of Systems - Review of Systems Review of Systems: Unable to evaluate ROS Critical Care Progress Note - Nutrition Nutrition: Nutrition Category Date Time Status NPO Diet [DIET] Diets 08/21/17 Dinner Active Assessment/Plan - Assessment and Plan (Free Text) Assessment: 77 year old male admitted to ICU on 08/10 from hospital floors, patient was to get a CT scan and had respiratory distress, code blue was called and patient was transferred to ICU and intubated. Patient developed ARDS requiring high PEEP (14) and severe sepsis from pneumonia on antibiotics. S/P Perma cath placement and tracheostomy POD#2 Received HD today Plan: Neuro: no acute issues - Versed 2 mg IV prn for anxiety - Ativan 1mg IVP Q2H prn Pulm: Acute respiratory failure in severe ARDS, intubated. - 08/19 CT chest showed large right pleural effusion. Right sided pigtail was placed. - Tracheostomy in place, FIO2 decreased from 60%-50% (08/24/2017) - Duoneb 3 ml Q, held due to tachycardia CV: NSTEMI - Plavix discontinued due to stent being placed >1 year ago. - ASA 81 mg PO daily (HELD) - Lopressor 25 mg PO BID - Crestor 10 mg PO HS Heme: h/o anemia, DVT - 08/09 Lower extremities doppler negative for DVTs bilaterally - ASA 81 mg PO daily (Held) - Lovenox 30 mg SC daily (Held) Renal: ALIREZA - Continue aggressive HD (MWF) via perma cath - Sevelamer Carbonate 2,400mg PO TIDCC - Procrit 10,000 unit IV MWF Endo: DM type 2 - ISS- High dose protocol - Levemir 16 U SC Q12 GI: no acute issues Dr. Wills on board for PEG -TUBE placement * As per GI, possible PEG tube placement tomorrow (08/24/2017) : Sanchez D/C ID: severe sepsis from pneumonia - 08/19 Sputum: no growth - 08/18 Urine Cx: no growth - Cefepime 1 gm daily: Day 5 (started on 08/19) Prophylaxis DVT: Lovenox 30 mg SC daily (held) GI: pepcid 20 mg PO daily, Lactobacillus 1 cap PO BID Acetaminophen 650 mg PO prn Sanchez for strict I/O's during acute illness Code status - full code <Abdullahi Abreu P - Last Filed: 08/24/17 19:08> CCU Objective - Vital Signs / Intake & Output Vital Signs (Last 4 hours): Vital Signs Temp Pulse Resp BP Pulse Ox 08/24/17 18:10 127 H 18 104/49 L 100 08/24/17 18:00 141 H 16 99 08/24/17 17:53 144 H 18 108/49 L 100 08/24/17 17:52 153 H 18 108/49 L 98 08/24/17 17:29 148 H 16 108/36 L 99 08/24/17 17:14 147 H 14 93/45 L 100 08/24/17 17:00 141 H 15 100/51 L 100 08/24/17 16:44 149 H 16 100/49 L 98 08/24/17 16:30 151 H 26 H 107/26 L 99 08/24/17 16:14 152 H 15 103/63 100 08/24/17 16:00 97.8 F 136 H 12 94/43 L 99 08/24/17 15:44 138 H 23 109/41 L 100 08/24/17 15:29 138 H 23 107/51 L 99 08/24/17 15:14 131 H 17 109/48 L 99 Intake and Output (Last 8hrs): Intake & Output 08/24/17 08/24/17 08/24/17 06:59 14:59 22:59 Intake Total 72.8 582.8 86.4 Output Total 10 0 Balance 62.8 582.8 86.4 Weight 185 lb Intake: Intake, IV Amount 12.8 62.8 6.4 Right Medial Port 50 Right Proximal Port 12.8 12.8 6.4 Tube Feeding 60 120 80 Other 400 Output: Urine 10 0 Urethral (Sanchez) 10 0 Other: # Voids Urine, Voided 0 # Bowel Movements 0 0 - Medications Active Medications: Active Medications Generic Name Dose Route Start Last Admin Trade Name Freq PRN Reason Stop Dose Admin Acetaminophen 650 mg 08/11/17 17:40 08/19/17 12:11 Tylenol 650mg/20.3ml Solution Ud PO 650 mg Q6 PRN Administration Temperature Albuterol/Ipratropium 3 ml 08/18/17 12:00 08/22/17 11:27 Duoneb 3 Mg/0.5 Mg (3 Ml) Ud INH 3 ml RQ4 LUIS FERNANDO Administration Aspirin 81 mg 08/14/17 11:15 08/22/17 10:09 Aspirin Chewable PO Not Given DAILY LUIS FERNANDO Enoxaparin Sodium 30 mg 08/17/17 10:00 08/22/17 10:00 Lovenox SC Not Given DAILY LUIS FERNANDO Epoetin Chencho 10,000 unit 08/17/17 14:00 08/24/17 09:49 Procrit IV 10,000 unit MWF LUIS FERNANDO Administration Famotidine 20 mg 08/09/17 10:00 08/24/17 13:06 Pepcid PO 20 mg DAILY LUIS FERNANDO Administration Cefepime HCl 1 gm/ Dextrose 50 mls @ 100 mls/hr 08/19/17 12:00 08/24/17 13:10 IVPB 100 mls/hr Q24H LUIS FERNANDO Administration Midazolam HCl 100 mg/ Sodium 100 mls @ 1.67 mls/hr 08/23/17 16:00 08/24/17 16 :00 Chloride IV Not Given .Q24H LUIS FERNANDO Protocol 0.02 MG/KG/HR Amiodarone HCl 900 mg/ 500 mls @ 33.33 mls/hr 08/24/17 18:00 08/24/17 18:10 Dextrose IV 08/25/17 00:00 33.33 mls/hr .Q15H1M LUIS FERNANDO Administration Protocol 1 MG/MIN Amiodarone HCl 900 mg/ 500 mls @ 16.66 mls/hr 08/25/17 00:00 Dextrose IV 08/25/17 17:59 .Q24H LUIS FERNANDO Protocol 0.5 MG/MIN Insulin Aspart 0 unit 08/23/17 13:34 08/24/17 18:22 Novolog SC 3 unit Q6 LUIS FERNANDO Administration Protocol Insulin Detemir 16 unit 08/20/17 08:18 08/24/17 08:38 Levemir SC 16 unit Q12H LUIS FERNANDO Administration Lactobacillus Acidophilus 1 cap 08/13/17 18:00 08/24/17 17:33 Bacid Acidophilus PO 1 cap BID LUIS FERNANDO Administration Lorazepam 1 mg 08/23/17 10:28 08/23/17 13:50 Ativan IVP 1 mg Q2H PRN Administration Anxiety Metoprolol Tartrate 50 mg 08/22/17 09:09 08/24/17 17:33 Lopressor PO 50 mg BID LUIS FERNANDO Administration Rosuvastatin Calcium 10 mg 08/06/17 22:00 08/23/17 22:05 Crestor PO 10 mg HS LUIS FERNANDO Administration Sevelamer Carbonate 2,400 mg 08/24/17 14:24 08/24/17 17:32 Renvela PO 2,400 mg TIDCC LUIS FERNANDO Administration - Patient Studies Lab Studies: Lab Studies 08/24/17 08/24/17 08/24/17 Range/Units 17:40 12:03 08:44 WBC (4.8-10.8) K/uL RBC (4.40-5.90) Mil/uL Hgb (12.0-18.0) g/dL Hct (35.0-51.0) % MCV (80.0-94.0) fL MCH (27.0-31.0) pg MCHC (33.0-37.0) g/dL RDW (11.5-14.5) % Plt Count (130-400) K/uL MPV (7.2-11.7) fL Neut % (Auto) (50.0-75.0) % Lymph % (Auto) (20.0-40.0) % [place] % (Auto) (0.0-10.0) % Eos % (Auto) (0.0-4.0) % Baso % (Auto) (0.0-2.0) % Neut # (1.8-7.0) K/uL Lymph # (1.0-4.3) K/uL [place] # (0.0-0.8) K/uL Eos # (0.0-0.7) K/uL Baso # (0.0-0.2) K/uL Neutrophils % (Manual) (50-75) % Lymphocytes % (Manual) (20-40) % Monocytes % (Manual) (0-10) % Eosinophils % (Manual) (0-4) % Platelet Estimate (NORMAL) Hypochromasia (manual) Anisocytosis (manual) Microcytosis (manual) Ovalocytes PT (9.7-12.2) SECONDS INR Puncture Site Rra pCO2 36 (35-45) mm/Hg pO2 98 (80-100) mm/Hg HCO3 24.4 (21-28) mmol/L ABG pH 7.42 (7.35-7.45) ABG Total CO2 24.5 (22-28) mmol/L ABG O2 Saturation 99.3 H (95-98) % ABG Base Excess -0.7 (-2.0-3.0) mmol/L Uriel Test Po ABG Potassium 4.8 (3.6-5.2) mmol/L A-a O2 Difference 285.0 mm/Hg Respiratory Index 2.9 Glucose 282 H (75-110) mg/dl Lactate 1.1 (0.7-2.1) mmol/L Vent Mode Prvc Mechanical Rate 14 FiO2 60.0 % Tidal Volume 450 PEEP 6 Sodium 137.0 (132-148) mmol/L Potassium (3.6-5.2) mmol/L Chloride 100.0 (98-107) mmol/L Carbon Dioxide (22-30) mmol/L Anion Gap (10-20) BUN (9-20) mg/dL Creatinine (0.8-1.5) MG/DL Est GFR ( Amer) Est GFR (Non-Af Amer) POC Glucose (mg/dL) 269 H 170 H (65-110) mg/dL Random Glucose (75-110) mg/dL Calcium (8.6-10.4) mg/dl Phosphorus (2.5-4.5) mg/dL Magnesium (1.6-2.3) mg/dL Total Bilirubin (0.2-1.3) mg/dL AST (17-59) U/L ALT (21-72) U/L Alkaline Phosphatase (38-126) U/L Total Protein (6.3-8.3) g/dL Albumin (3.5-5.0) g/dL Globulin (2.2-3.9) gm/dL Albumin/Globulin Ratio (1.0-2.1) Arterial Blood Potassium 4.8 (3.6-5.2) mmol/L Pleural Total Protein g/dL Pleural LDH U/L Pleural Glucose mg/dL 08/24/17 08/24/17 08/24/17 Range/Units 06:08 06:08 06:08 WBC 17.4 H (4.8-10.8) K/uL RBC 3.89 L (4.40-5.90) Mil/uL Hgb 8.9 L (12.0-18.0) g/dL Hct 29.2 L (35.0-51.0) % MCV 74.9 L (80.0-94.0) fL MCH 23.0 L (27.0-31.0) pg MCHC 30.7 L (33.0-37.0) g/dL RDW 21.9 H (11.5-14.5) % Plt Count 601 H (130-400) K/uL MPV 8.3 (7.2-11.7) fL Neut % (Auto) 82.3 H (50.0-75.0) % Lymph % (Auto) 6.9 L (20.0-40.0) % [place] % (Auto) 8.2 (0.0-10.0) % Eos % (Auto) 1.7 (0.0-4.0) % Baso % (Auto) 0.9 (0.0-2.0) % Neut # 14.3 H (1.8-7.0) K/uL Lymph # 1.2 (1.0-4.3) K/uL [place] # 1.4 H (0.0-0.8) K/uL Eos # 0.3 (0.0-0.7) K/uL Baso # 0.2 (0.0-0.2) K/uL Neutrophils % (Manual) 81 H (50-75) % Lymphocytes % (Manual) 8 L (20-40) % Monocytes % (Manual) 8 (0-10) % Eosinophils % (Manual) 3 (0-4) % Platelet Estimate Increased H (NORMAL) Hypochromasia (manual) Slight Anisocytosis (manual) Slight Microcytosis (manual) Slight Ovalocytes Slight PT 13.9 H (9.7-12.2) SECONDS INR 1.2 Puncture Site pCO2 (35-45) mm/Hg pO2 (80-100) mm/Hg HCO3 (21-28) mmol/L ABG pH (7.35-7.45) ABG Total CO2 (22-28) mmol/L ABG O2 Saturation (95-98) % ABG Base Excess (-2.0-3.0) mmol/L Uriel Test ABG Potassium (3.6-5.2) mmol/L A-a O2 Difference mm/Hg Respiratory Index Glucose (75-110) mg/dl Lactate (0.7-2.1) mmol/L Vent Mode Mechanical Rate FiO2 % Tidal Volume PEEP Sodium 137 (132-148) mmol/L Potassium 4.9 (3.6-5.2) mmol/L Chloride 92 L (98-107) mmol/L Carbon Dioxide 23 (22-30) mmol/L Anion Gap 27 H (10-20) BUN 76 H (9-20) mg/dL Creatinine 6.2 H (0.8-1.5) MG/DL Est GFR ( Amer) 11 Est GFR (Non-Af Amer) 9 POC Glucose (mg/dL) (65-110) mg/dL Random Glucose 241 H (75-110) mg/dL Calcium 8.8 (8.6-10.4) mg/dl Phosphorus 10.8 H (2.5-4.5) mg/dL Magnesium 3.1 H (1.6-2.3) mg/dL Total Bilirubin 0.9 (0.2-1.3) mg/dL AST 80 H D (17-59) U/L ALT 72 (21-72) U/L Alkaline Phosphatase 179 H (38-126) U/L Total Protein 7.3 (6.3-8.3) g/dL Albumin 3.5 (3.5-5.0) g/dL Globulin 3.8 (2.2-3.9) gm/dL Albumin/Globulin Ratio 0.9 L (1.0-2.1) Arterial Blood Potassium (3.6-5.2) mmol/L Pleural Total Protein g/dL Pleural LDH U/L Pleural Glucose mg/dL 08/24/17 08/24/17 08/19/17 Range/Units 05:32 00:09 18:53 WBC (4.8-10.8) K/uL RBC (4.40-5.90) Mil/uL Hgb (12.0-18.0) g/dL Hct (35.0-51.0) % MCV (80.0-94.0) fL MCH (27.0-31.0) pg MCHC (33.0-37.0) g/dL RDW (11.5-14.5) % Plt Count (130-400) K/uL MPV (7.2-11.7) fL Neut % (Auto) (50.0-75.0) % Lymph % (Auto) (20.0-40.0) % [place] % (Auto) (0.0-10.0) % Eos % (Auto) (0.0-4.0) % Baso % (Auto) (0.0-2.0) % Neut # (1.8-7.0) K/uL Lymph # (1.0-4.3) K/uL [place] # (0.0-0.8) K/uL Eos # (0.0-0.7) K/uL Baso # (0.0-0.2) K/uL Neutrophils % (Manual) (50-75) % Lymphocytes % (Manual) (20-40) % Monocytes % (Manual) (0-10) % Eosinophils % (Manual) (0-4) % Platelet Estimate (NORMAL) Hypochromasia (manual) Anisocytosis (manual) Microcytosis (manual) Ovalocytes PT (9.7-12.2) SECONDS INR Puncture Site pCO2 (35-45) mm/Hg pO2 (80-100) mm/Hg HCO3 (21-28) mmol/L ABG pH (7.35-7.45) ABG Total CO2 (22-28) mmol/L ABG O2 Saturation (95-98) % ABG Base Excess (-2.0-3.0) mmol/L Uriel Test ABG Potassium (3.6-5.2) mmol/L A-a O2 Difference mm/Hg Respiratory Index Glucose (75-110) mg/dl Lactate (0.7-2.1) mmol/L Vent Mode Mechanical Rate FiO2 % Tidal Volume PEEP Sodium (132-148) mmol/L Potassium (3.6-5.2) mmol/L Chloride (98-107) mmol/L Carbon Dioxide (22-30) mmol/L Anion Gap (10-20) BUN (9-20) mg/dL Creatinine (0.8-1.5) MG/DL Est GFR ( Amer) Est GFR (Non-Af Amer) POC Glucose (mg/dL) 278 H 309 H (65-110) mg/dL Random Glucose (75-110) mg/dL Calcium (8.6-10.4) mg/dl Phosphorus (2.5-4.5) mg/dL Magnesium (1.6-2.3) mg/dL Total Bilirubin (0.2-1.3) mg/dL AST (17-59) U/L ALT (21-72) U/L Alkaline Phosphatase (38-126) U/L Total Protein (6.3-8.3) g/dL Albumin (3.5-5.0) g/dL Globulin (2.2-3.9) gm/dL Albumin/Globulin Ratio (1.0-2.1) Arterial Blood Potassium (3.6-5.2) mmol/L Pleural Total Protein 3.5 g/dL Pleural LDH 267 U/L Pleural Glucose 209 mg/dL Laboratory Results - last 24 hr 08/19/17 08/24/17 08/24/17 18:53 00:09 05:32 WBC RBC Hgb Hct MCV MCH MCHC RDW Plt Count MPV Neut % (Auto) Lymph % (Auto) [place] % (Auto) Eos % (Auto) Baso % (Auto) Neut # Lymph # [place] # Eos # Baso # Neutrophils % (Manual) Lymphocytes % (Manual) Monocytes % (Manual) Eosinophils % (Manual) Platelet Estimate Hypochromasia (manual) Anisocytosis (manual) Microcytosis (manual) Ovalocytes PT INR Puncture Site pCO2 pO2 HCO3 ABG pH ABG Total CO2 ABG O2 Saturation ABG Base Excess Uriel Test ABG Potassium A-a O2 Difference Respiratory Index Glucose Lactate Vent Mode Mechanical Rate FiO2 Tidal Volume PEEP Sodium Potassium Chloride Carbon Dioxide Anion Gap BUN Creatinine Est GFR ( Amer) Est GFR (Non-Af Amer) POC Glucose (mg/dL) 309 H 278 H Random Glucose Calcium Phosphorus Magnesium Total Bilirubin AST ALT Alkaline Phosphatase Total Protein Albumin Globulin Albumin/Globulin Ratio Arterial Blood Potassium Pleural Total Protein 3.5 Pleural LDH 267 Pleural Glucose 209 08/24/17 08/24/17 08/24/17 06:08 06:08 06:08 WBC 17.4 H RBC 3.89 L Hgb 8.9 L Hct 29.2 L MCV 74.9 L MCH 23.0 L MCHC 30.7 L RDW 21.9 H Plt Count 601 H MPV 8.3 Neut % (Auto) 82.3 H Lymph % (Auto) 6.9 L [place] % (Auto) 8.2 Eos % (Auto) 1.7 Baso % (Auto) 0.9 Neut # 14.3 H Lymph # 1.2 [place] # 1.4 H Eos # 0.3 Baso # 0.2 Neutrophils % (Manual) 81 H Lymphocytes % (Manual) 8 L Monocytes % (Manual) 8 Eosinophils % (Manual) 3 Platelet Estimate Increased H Hypochromasia (manual) Slight Anisocytosis (manual) Slight Microcytosis (manual) Slight Ovalocytes Slight PT 13.9 H INR 1.2 Puncture Site pCO2 pO2 HCO3 ABG pH ABG Total CO2 ABG O2 Saturation ABG Base Excess Uriel Test ABG Potassium A-a O2 Difference Respiratory Index Glucose Lactate Vent Mode Mechanical Rate FiO2 Tidal Volume PEEP Sodium 137 Potassium 4.9 Chloride 92 L Carbon Dioxide 23 Anion Gap 27 H BUN 76 H Creatinine 6.2 H Est GFR ( Amer) 11 Est GFR (Non-Af Amer) 9 POC Glucose (mg/dL) Random Glucose 241 H Calcium 8.8 Phosphorus 10.8 H Magnesium 3.1 H Total Bilirubin 0.9 AST 80 H D ALT 72 Alkaline Phosphatase 179 H Total Protein 7.3 Albumin 3.5 Globulin 3.8 Albumin/Globulin Ratio 0.9 L Arterial Blood Potassium Pleural Total Protein Pleural LDH Pleural Glucose 08/24/17 08/24/17 08/24/17 08:44 12:03 17:40 WBC RBC Hgb Hct MCV MCH MCHC RDW Plt Count MPV Neut % (Auto) Lymph % (Auto) [place] % (Auto) Eos % (Auto) Baso % (Auto) Neut # Lymph # [place] # Eos # Baso # Neutrophils % (Manual) Lymphocytes % (Manual) Monocytes % (Manual) Eosinophils % (Manual) Platelet Estimate Hypochromasia (manual) Anisocytosis (manual) Microcytosis (manual) Ovalocytes PT INR Puncture Site Rra pCO2 36 pO2 98 HCO3 24.4 ABG pH 7.42 ABG Total CO2 24.5 ABG O2 Saturation 99.3 H ABG Base Excess -0.7 Uriel Test Po ABG Potassium 4.8 A-a O2 Difference 285.0 Respiratory Index 2.9 Glucose 282 H Lactate 1.1 Vent Mode Prvc Mechanical Rate 14 FiO2 60.0 Tidal Volume 450 PEEP 6 Sodium 137.0 Potassium Chloride 100.0 Carbon Dioxide Anion Gap BUN Creatinine Est GFR ( Amer) Est GFR (Non-Af Amer) POC Glucose (mg/dL) 170 H 269 H Random Glucose Calcium Phosphorus Magnesium Total Bilirubin AST ALT Alkaline Phosphatase Total Protein Albumin Globulin Albumin/Globulin Ratio Arterial Blood Potassium 4.8 Pleural Total Protein Pleural LDH Pleural Glucose EKG/Cardiology Studies: Cardiology / EKG Studies 08/24/17 07:47 ELECTROCARDIOGRAM Stat Comment: Mode Of Transportation: Reason For Exam: tachycardia regular Critical Care Progress Note - Nutrition Nutrition: Nutrition Category Date Time Status NPO Diet [DIET] Diets 08/21/17 Dinner Active Attending/Attestation - Attestation I have personally seen and examined this patient.: Yes I have fully participated in the care of the patient.: Yes I have reviewed all pertinent clinical information: Yes Notes (Text): 08/24/17 19:04 Overnight and today intermittent narrow complex regular tachycardia range of 150 -160, on tele and EKG aflutter with RVR. Patient received HD today, HR didn't responded to 2 doses of iv metoprolol, started on bolus and amiodarone drip with which he responded currently aflutter with controlled rate in 100/min. Patient is being planned for PEG tube hence will hold on therapeutic anticoagulation. ABG and CXR reviewed, small effusion noticed on the left side, right side clear, has pig tail cath will remove today or tomorrow depending on the drainage.
[2017-08-24] MEDS: Midazolam 50 mg/10 ml 100 MG in Sodium Chloride 0.9% 80 ML IV SCH (16:00)
--- NOTE | 2017-08-24 16:10 | CP.PCM.PN ---
Subjective - Date & Time of Evaluation Date of Evaluation: 08/24/17 Time of Evaluation: 16:07 - Subjective Subjective: on vent anoxic had HD today, difficult to remove fluid due to hypotension and tachycardia in final hour ngt in family at bedside unable to obtain ros Objective - Vital Signs/Intake and Output Vital Signs (last 24 hours): Temp Pulse Resp BP Pulse Ox 98.3 F 138 H 23 107/51 L 99 08/24/17 12:15 08/24/17 15:29 08/24/17 15:29 08/24/17 15:29 08/24/17 15:29 Intake and Output: 08/24/17 08/24/17 06:59 18:59 Intake Total 119.2 584.4 Output Total 10 0 Balance 109.2 584.4 - Medications Medications: Current Medications Acetaminophen (Tylenol 650mg/20.3ml Solution Ud) 650 mg PO Q6 PRN PRN Reason: Temperature Last Admin: 08/19/17 12:11 Dose: 650 mg Albuterol/Ipratropium (Duoneb 3 Mg/0.5 Mg (3 Ml) Ud) 3 ml INH RQ4 [facility] Last Admin: 08/22/17 11:27 Dose: 3 ml Aspirin (Aspirin Chewable) 81 mg PO DAILY [facility] Last Admin: 08/22/17 10:09 Dose: Not Given Enoxaparin Sodium (Lovenox) 30 mg SC DAILY [facility] Last Admin: 08/22/17 10:00 Dose: Not Given Epoetin Chencho (Procrit) 10,000 unit IV MWF [facility] Last Admin: 08/24/17 09:49 Dose: 10,000 unit Famotidine (Pepcid) 20 mg PO DAILY [facility] Last Admin: 08/24/17 13:06 Dose: 20 mg Cefepime HCl 1 gm/ Dextrose 50 mls @ 100 mls/hr IVPB Q24H [facility] Last Admin: 08/24/17 13:10 Dose: 100 mls/hr Midazolam HCl 100 mg/ Sodium (Chloride) 100 mls @ 1.67 mls/hr IV .Q24H [facility]; 0.02 MG/KG/HR PRN Reason: Protocol Last Admin: 08/23/17 16:15 Dose: 0.02 mg/kg/hr, 1.67 mls/hr Insulin Aspart (Novolog) 0 unit SC Q6 [facility] PRN Reason: Protocol Last Admin: 08/24/17 13:10 Dose: 1 unit Insulin Detemir (Levemir) 16 unit SC Q12H [facility] Last Admin: 08/24/17 08:38 Dose: 16 unit Lactobacillus Acidophilus (Bacid Acidophilus) 1 cap PO BID [facility] Last Admin: 08/24/17 13:07 Dose: 1 cap Lorazepam (Ativan) 1 mg IVP Q2H PRN PRN Reason: Anxiety Last Admin: 08/23/17 13:50 Dose: 1 mg Metoprolol Tartrate (Lopressor) 50 mg PO BID [facility] Last Admin: 08/24/17 13:47 Dose: Not Given Rosuvastatin Calcium (Crestor) 10 mg PO HS [facility] Last Admin: 08/23/17 22:05 Dose: 10 mg Sevelamer Carbonate (Renvela) 2,400 mg PO TIDCC [facility] - Labs Labs: 08/24/17 06:08 08/24/17 06:08 PT 13.9 SECONDS (9.7-12.2) H 08/24/17 06:08 INR 1.2 08/24/17 06:08 APTT 55 SECONDS (21-34) H D 08/17/17 06:12 - Constitutional Appears: Chronically Ill - Head Exam Head Exam: ATRAUMATIC, NORMAL INSPECTION - ENT Exam ENT Exam: Mucous Membranes Moist - Neck Exam Neck Exam: Full ROM. absent: Lymphadenopathy - Respiratory Exam Respiratory Exam: Decreased Breath Sounds. absent: Accessory Muscle Use - Cardiovascular Exam Cardiovascular Exam: Tachycardia. absent: Rubs - GI/Abdominal Exam GI & Abdominal Exam: Distended. absent: Tenderness - Extremities Exam Extremities Exam: absent: Pedal Edema - Neurological Exam Neurological Exam: absent: Alert, Awake Assessment and Plan - Assessment and Plan (Free Text) Plan: stoney, dialysis dependent post cardiac arrest difficulty in dialyzing due to unstable hemodynamics next HD tentatively on Tuesday continue present management
--- NOTE | 2017-08-24 18:08 | CP.PCM.PN ---
Subjective - Date & Time of Evaluation Date of Evaluation: 08/24/17 Time of Evaluation: 14:00 - Subjective Subjective: Medical Attending Note patient seen, examined and case discussed with ICU. Patient completed dialysis prior to my arrival. Per nurse, patient having frequent bouts of atrial flutter including today, overnight, and yesterday during dialysis. Patient's aspirin, plavix, and lovenox on hold since prior to trach, patient is pending for possible peg placement. Unable to review ROS given patient's clinical condition. Spoke with patient's nurse, patient is on sedation at low rate. Discussed with Dr. Cortés, given atrial flutter recommended for amiodarone, and spoke with ICU. Objective - Vital Signs/Intake and Output Vital Signs (last 24 hours): Temp Pulse Resp BP Pulse Ox 97.8 F 153 H 18 108/49 L 98 08/24/17 16:00 08/24/17 17:52 08/24/17 17:52 08/24/17 17:52 08/24/17 17:52 Intake and Output: 08/24/17 08/24/17 06:59 18:59 Intake Total 119.2 626.0 Output Total 10 0 Balance 109.2 626.0 - Medications Medications: Current Medications Acetaminophen (Tylenol 650mg/20.3ml Solution Ud) 650 mg PO Q6 PRN PRN Reason: Temperature Last Admin: 08/19/17 12:11 Dose: 650 mg Albuterol/Ipratropium (Duoneb 3 Mg/0.5 Mg (3 Ml) Ud) 3 ml INH RQ4 [facility] Last Admin: 08/22/17 11:27 Dose: 3 ml Aspirin (Aspirin Chewable) 81 mg PO DAILY [facility] Last Admin: 08/22/17 10:09 Dose: Not Given Enoxaparin Sodium (Lovenox) 30 mg SC DAILY [facility] Last Admin: 08/22/17 10:00 Dose: Not Given Epoetin Chencho (Procrit) 10,000 unit IV MWF [facility] Last Admin: 08/24/17 09:49 Dose: 10,000 unit Famotidine (Pepcid) 20 mg PO DAILY [facility] Last Admin: 08/24/17 13:06 Dose: 20 mg Cefepime HCl 1 gm/ Dextrose 50 mls @ 100 mls/hr IVPB Q24H [facility] Last Admin: 08/24/17 13:10 Dose: 100 mls/hr Midazolam HCl 100 mg/ Sodium (Chloride) 100 mls @ 1.67 mls/hr IV .Q24H [facility]; 0.02 MG/KG/HR PRN Reason: Protocol Last Admin: 08/23/17 16:15 Dose: 0.02 mg/kg/hr, 1.67 mls/hr Amiodarone HCl 900 mg/ (Dextrose) 500 mls @ 33.33 mls/hr IV .Q15H1M [facility]; 1 MG/ MIN PRN Reason: Protocol Stop: 08/25/17 00:00 Amiodarone HCl 900 mg/ (Dextrose) 500 mls @ 16.66 mls/hr IV .Q24H [facility]; 0.5 MG/ MIN PRN Reason: Protocol Stop: 08/25/17 17:59 Insulin Aspart (Novolog) 0 unit SC Q6 [facility] PRN Reason: Protocol Last Admin: 08/24/17 13:10 Dose: 1 unit Insulin Detemir (Levemir) 16 unit SC Q12H [facility] Last Admin: 08/24/17 08:38 Dose: 16 unit Lactobacillus Acidophilus (Bacid Acidophilus) 1 cap PO BID [facility] Last Admin: 08/24/17 17:33 Dose: 1 cap Lorazepam (Ativan) 1 mg IVP Q2H PRN PRN Reason: Anxiety Last Admin: 08/23/17 13:50 Dose: 1 mg Metoprolol Tartrate (Lopressor) 50 mg PO BID [facility] Last Admin: 08/24/17 17:33 Dose: 50 mg Rosuvastatin Calcium (Crestor) 10 mg PO HS [facility] Last Admin: 08/23/17 22:05 Dose: 10 mg Sevelamer Carbonate (Renvela) 2,400 mg PO TIDCC [facility] Last Admin: 08/24/17 17:32 Dose: 2,400 mg - Labs Labs: 08/24/17 06:08 08/24/17 06:08 PT 13.9 SECONDS (9.7-12.2) H 08/24/17 06:08 INR 1.2 08/24/17 06:08 APTT 55 SECONDS (21-34) H D 08/17/17 06:12 - Constitutional Appears: Agitated, Chronically Ill - Head Exam Head Exam: NORMAL INSPECTION - Eye Exam Eye Exam: EOMI. absent: Nystagmus, Scleral icterus - ENT Exam ENT Exam: Mucous Membranes Dry - Respiratory Exam Respiratory Exam: Decreased Breath Sounds. absent: Stridor Additional comments: on vent - Cardiovascular Exam Cardiovascular Exam: Tachycardia, +S1, +S2 - GI/Abdominal Exam GI & Abdominal Exam: Soft, Normal Bowel Sounds. absent: Distended, Firm, Guarding, Rigid, Tenderness, Rebound Additional comments: obese habitus - Extremities Exam Extremities Exam: Pedal Edema (reduced) - Neurological Exam Neurological Exam: Altered (on sedation) - Skin Skin Exam: Dry, Intact, Normal Color, Warm Assessment and Plan - Assessment and Plan (Free Text) Assessment: (1) Acute Respiratory Failure ARDS Cardiac Arrest Pulmonary Edema NONSTEMI Assessment and Plan: * Code Blue on 08/10: asystole, cardiopulmonary resuscitative measures initiated , requiring 3 epis, bicarbonate, ROSC achieved and intubated and brought to the ICU for further management * 08/10: Central line placed by ICU; placed on tridil drip; heparin drip c/w * 08/11: Patient placed on Lasix IV. On heparin drip. No plans for cardiac cath at time time. Chest Xray (08/11/17): NG tube extending into the stomach. Endotracheal tube extending into the mild thoracic trachea. Left sided pacemaker. multiple overlying external wires and tubing, Moderate severe venous congestion with prominent confluent airspace opacities in the mid to lower lung zones with associated small to moderate bilateral pleural effusions. scattered nodular densities in both lungs. Cardiomegaly. Degenerative changes in the spine and shoulders. * 08/12: Chest xray (08/12/17): right basilar opacity. Small right pleural effusion. Lines and tubes unchanged.-->C/w Lasix. Discussed with Dr. Mena (pulm) , recommended for CT Chest w/o contrast for possible ARDS. increased peep 10 * 08/13: pending chest /abdomen xray for this morning; self-extubated and reintubated overnight; off tridil drip secondary to hypotension post intubation ; on heparin drip * CT Chest/Abdomen/Pelvis (08/13): moderate to large bilateral pleural effusions largeer on thr right associated with atelectasis at lower lobes. Nonspecific ground-glass opacities in the upper lobe new may be due to pulmonary vascular congestion. moderately cardiomegaly. No evidence of bowel obstruction. Moderately to markedly enlarged prostate. nonobstructing calculus at mid to lower pole left kidney. Gallstone without evidence of cholecystitis. Scattered diverticulosis without evidence of diverticulitis * Repeat CT Chest 08/18 showed moderate Bilateral Pleural Effusion associated with compressive consolidations. I spoke with Cardiothoracic Surgeon Dr. Lopez and he recommended bilateral pigtail catheters. ICU Team placed Right Chest Pigtail Catheter 08/19 and as only small amount of fluid was produced, Left Chest Pigtail Catheter was not placed. Pleural Fluid studies (Total Protein, LDH , Glucose, Cell count with diff, Gram Stain and Culture, pH) have been ordered . * Patient was planned for Tracheostomy 08/19/17 however due to his PEEP of 14 this is currently on hold. * 08/21: PEEP is down to 6. Tracheostomy is planned for 08/22 and Nurse Minal has been made aware to STOP Glucerna NG feeding after midnight * 08/22: s/p tracheostomy POD 0; aspirin and dvt ppx held today-->will need to follow-up with surgery to see when to restart these medications * 08/23: s/p tracheostomy POD 1; aspirin and dvt ppx on hold-->patient is pending peg placement: GI requesting cardio and pulmonary clearance-->phone number for patient's available with patient's nurse and will be present tomorrow at 930AM * 08/24: s/p tracheostomy POD 2: ; aspirin and dvt ppx on hold-->patient is pending peg placement: cardiology risk assessment provided; awaiting pulmonary; discussed with GI fellow patient is consented for procedure. (2) Chest pain Assessment and Plan: * Cardiology (Dr. Cortés) on board-->help appreciated * All trops WNL; Troponin positive in light of CPR * EKG x2 = Sinus tachycardia notes with possible left atrial enlargement; no apparent T segment elevations in contiguous leads * Patient was Heparin Drip but this was discontinued 08/17/17 * Patient's cardiac catherization cancelled secondary to rise in creatinine (2.3 ) on 08/09/17. * Patient has hx of abnormal stress test. Discussed with cardiology and nephrology given change in Cr on 08/09. * Echocardiogram (08/08/17): left ventricle systolic function is severely impaired. EF: 25-30%; global hypokinesis of left ventricle mild aortic regurgitation. Mitral regurgitation is moderate. Moderate-severe pulmonary hypertesnion * Hx of ACID * Crestor 10mg POqHS * Metoprolol Succinate 50 mg PO 1x/day was placed on Hold 08/17/17 * Off Arb secondary to ARF * TSH: 1.16; T4: 1.53 * 08/22: held Aspirin 81mg PO daily and Plavix 75mg PO daily-->will need to follow-up with surgery when to restart medications 08/22 * 08/24: aspirin and dvt ppx on hold-->patient is pending peg placement: cardiology risk assessment provided; awaiting pulmonary; discussed with GI fellow patient is consented for procedure. Will need to be restarted when GI determines to restart post-peg placement (3) Acute Systolic CHF exacerbation Assessment and Plan: * Cardiology Dr. Cortés is following * Transferred to the ICU on 08/10 following cardiac arrest and intubation. * Echocardiogram (08/08/17): left ventricular systolic function is severely impaired. EF: 25-30%; global hypokinesis of left ventricle mild aortic regurgitation. Mitral regurgitation is moderate. Moderate-severe pulmonary hypertension * Height of bed at 45 degrees, Strict ins and outs, monitor daily weights * Crestor 10mg POqHS * Metoprolol Succinate 50mg PO 1x/day was placed on Hold 08/17/17 * Off Arb secondary to ARF * Has been receiving HD 08/16/17 and 08/19/17 to help reduce the pulmonary congestion * Started on Dobutamine 2.5 mcg/kg/min 08/19/17-08/22/17 * 08/22: held Aspirin 81mg PO daily and Plavix 75mg PO daily-->will need to follow-up with surgery when to restart medications 08/22 * 08/23: held Aspirin 81mg PO daily, Plavix 75mg PO daily, dvt ppx--> patient's pending possible peg placement pending cardio/pulm clearance * 08/24: held Aspirin 81mg PO daily, Plavix 75mg PO daily, dvt ppx--> patient's pending possible peg placement pending cardio/pulm clearance Status: Acute (4) Pneumonia Assessment and Plan: * Pulmonary (Dr. Mena) on board-->help appreciated; Dr. Mathew covering while Dr. Mena away * Infectious Disease (Dr. Lawrence)-->help appreciated * Rapid A strep, Influenza A and B studies, Urine Legionella, Mycoplasma studies = Negative * Florastor 250mg PO bid * +Strep Pneumoniae in the urine * 08/12: Will repeat urine studies and exchange out the jaquez * 08/18/17 Urine culture: no growth * Meropenem 500mg IV Q 8 hours (08/14/17 through 08/18/17) and Zosyn 2.25 mg IV Q6H (08/13/17 through 08/18/17) * s/p right posterior chest tube 08/19 * Sputum Culture 08/19/17 shows NO growth * Pleural fluid 08/19/17: no growth * Chest xray (08/24/17): heterogeneous opacity at the right lower lung. Mild to moderate pulmonary vascular congestion. Appropriate position of the support devices * Cefepime 1 gm IV Q24H (08/19/17)-->DAY 5 Status: Acute (5) CAD (coronary artery disease) Assessment and Plan: * Hx of cardiac stent in the past * Cardiac cath on hold given events on 08/10 Status: Acute (6) HTN (hypertension) Assessment and Plan: * Metoprolol XL 50 mg PO 1x/day Status: Chronic (7) CKD (chronic kidney disease) Assessment and Plan: * Dr. Miranda (nephrology) consulted on the case * Hx of CKD * GFR 45 which appears to be around baseline * Stopped ARB given rise in CR * Off IV fluids given pulmonary edema * Monitor in and output: has not been producing significant amount of urine and HD was recommended by Nephrology * s/p Permcath 08/22 * 08/23: Started on Renevela 800mg PO tidcc discussed with nephro-> hyperphosphatemia Status: Acute (8) Diabetes mellitus Assessment and Plan: * Accuchecks Q6H * A1c 8.4 * 08/20: Required 26 units on Aspart ISS from 4 AM 08/19/17 through 4 AM 08/20/17 therefore half of this was added to total Levemir dose. Levemir now is 16 Units SC Q12H * Insulin Aspart ISS Q6H * 08/21: Patient required 32 units on Aspart ISS from 4 AM 08/20/17 through 4 AM . Was going to increase the Levemir dose to 32 units, however patient will be NPO after midnight 08/21/17 therefore this was not done. * 08/23 Insulin being held since patient took his OGT tube the night before Status: Chronic (9) HLD (hyperlipidemia) Assessment and Plan: * On Crestor 10 mg PO HS-->on hold since patient removed OGT tube Status: Chronic (10) Constipation Assessment and Plan: * Having bowel movements per nursing notes (08/14/17) * Senokot 50/8.6 1 tab PO 2x/day * 08/12: Will given ducolax suppository X1 * 08/13: has not had bowel movement; ordered for abdominal/chest xray in light of abdominal distension * CT Chest/Abdomen/Pelvis (08/13): moderate to large bilateral pleural effusions largeer on thr right associated with atelectasis at lower lobes. Nonspecific ground-glass opacities in the upper lobe new may be due to pulmonary vascular congestion. moderately cardiomegaly. No evidence of bowel obstruction. Moderately to markedly enlarged prostate. nonobstructing calculus at mid to lower pole left kidney. Gallstone without evidence of cholecystitis. Scattered diverticulosis without evidence of diverticulitis * 08/14: Patient is not obstructed per review CT scan * 08/19: He is moving his bowels as of 08/19/17 but the Senokot was placed on hold has the movements have been very soft * 08/21: patient is having normal bowel movements as per Nurse Fontaine Status: Chronic (11) Anemia Assessment and Plan: * Heme-oncology (Dr. Giles bender) on board-->help appreciated * Likely iron deficiency anemia based on prior admissions * Ferritin 27.4, Iron 22, TIBC 322, % Saturation 7 * Ferric Sodium Gluconate 125mg IVPB daily (active 08/08-08/16) * Procrit 10,000 units M-W- * Monitor Hgb/Hct: stable Status: Chronic (12) History of DVT (deep vein thrombosis) Assessment and Plan: * Patient was previously on Eliquis for a prior history of DVT. * Repeat dopplers 08/09/17 are negative for DVT * Off Heparin Drip 08/17/17 * Off DVT ppx since 08/22/17 secondary trach placement and possible peg placement Status: Acute (13) UTI * Infectious disease (Dr. Lawrence) on board-->help appreciated * Exchange jaquez out and repeat urine cultures * Urine Culture 08/12/17 showed Gram Negative Rods: NO identification and NO sensitivities were performed * Meropenem 500mg IV Q 12hours (active since 08/14/17 through 08/18/17) to cover for UTI per ID * Repeat Urine Culture 08/18/17 shows NO growth (14) Confusion; Alzheimer's Dementia Assessment and Plan: * Per daughter, patient has been getting bouts of confusion over the past year but appears at baseline. Patient has not seen formal neurology as outpatient per daughter. Per , prior to event, noted Alzheimers' disease dx one year ago * CT head w/o contrast (08/10/17):acute os subacute lacune infarct is not excluded in the left basal ganglia inferiorly with definitive chronic lacune identified in the right basal ganglia superiorly. No acute or subacute lobar brain infarction is appreciable by standard CT criteria. Mild age-related neuro degenerative changes are identifed. No acute intracranial hemorrhage or mass is identified throughout * 08/11: Patient gets agitated and will fight to pull the intubation tube out per nursing. Was placed on sedation and Ativan PRN * 08/12: patient is responsive to questions, able to move all extremities, off sedation. Patient is on PRN Versed and Ativan PRN. Will respond to yes and no questions * 08/13: Back on sedation since reintubation; patient is moving all extremities * 08/18: Versed 2 mg IV Q3H PRN Anxiety * 08/23: patient very agitated; started on Midazolam 100mg IV 24 HR, per discussion with ICU, unable to ascertain if patient is in pain (15) Prophylactic measure Assessment and Plan: * Pepcid 20mg PO daily * held Lovenox 30 mg SC 1x/day secondary to OR 08/22-->f/u when to restart anticoagulation; patient is pending possible peg placement * Patient is pending peg placement * Patient took out his OGT tube 08/22; to have NGT tube reinsertion on evening shift; PO meds are being held at this time * Bacid 1 cap NGT 2x/day * Atrovent Q6H PRN * Tylenol 650 mg PO Q6H PRN Temperature * Albumin 25% 12.5 gm IV Q2H x 3 doses on 08/18/17 and 08/19/17 * s/p trachesostomy 08/22 * s/p Permcath placement 08/22 removal Kurtis catheter * s/p right posterior chest tube 08/19 * (Jovita Serrano): -->number provided to the nurse and will be present tomorrow at 930am-->informed GI fellow in regards to obtaining consent for peg
--- NOTE | 2017-08-24 21:32 | CP.PCM.PN ---
Subjective - Date & Time of Evaluation Date of Evaluation: 08/24/17 Time of Evaluation: 05:50 - Subjective Subjective: dictated Objective - Vital Signs/Intake and Output Vital Signs (last 24 hours): Temp Pulse Resp BP Pulse Ox 97.8 F 86 9 L 98/48 L 99 08/24/17 16:00 08/24/17 21:00 08/24/17 21:00 08/24/17 20:53 08/24/17 21:00 Intake and Output: 08/24/17 08/25/17 18:59 06:59 Intake Total 769.2 54.9 Output Total 0 Balance 769.2 54.9 - Medications Medications: Current Medications Acetaminophen (Tylenol 650mg/20.3ml Solution Ud) 650 mg PO Q6 PRN PRN Reason: Temperature Last Admin: 08/19/17 12:11 Dose: 650 mg Albuterol/Ipratropium (Duoneb 3 Mg/0.5 Mg (3 Ml) Ud) 3 ml INH RQ4 [facility] Last Admin: 08/22/17 11:27 Dose: 3 ml Aspirin (Aspirin Chewable) 81 mg PO DAILY [facility] Last Admin: 08/22/17 10:09 Dose: Not Given Enoxaparin Sodium (Lovenox) 30 mg SC DAILY [facility] Last Admin: 08/22/17 10:00 Dose: Not Given Epoetin Chencho (Procrit) 10,000 unit IV MWF [facility] Last Admin: 08/24/17 09:49 Dose: 10,000 unit Famotidine (Pepcid) 20 mg PO DAILY [facility] Last Admin: 08/24/17 13:06 Dose: 20 mg Cefepime HCl 1 gm/ Dextrose 50 mls @ 100 mls/hr IVPB Q24H [facility] Last Admin: 08/24/17 13:10 Dose: 100 mls/hr Midazolam HCl 100 mg/ Sodium (Chloride) 100 mls @ 1.67 mls/hr IV .Q24H [facility]; 0.02 MG/KG/HR PRN Reason: Protocol Last Admin: 08/24/17 16:00 Dose: Not Given Amiodarone HCl 900 mg/ (Dextrose) 500 mls @ 33.33 mls/hr IV .Q15H1M [facility]; 1 MG/ MIN PRN Reason: Protocol Stop: 08/25/17 00:00 Last Admin: 08/24/17 18:10 Dose: 33.33 mls/hr Amiodarone HCl 900 mg/ (Dextrose) 500 mls @ 16.66 mls/hr IV .Q24H [facility]; 0.5 MG/ MIN PRN Reason: Protocol Stop: 08/25/17 17:59 Insulin Aspart (Novolog) 0 unit SC Q6 [facility] PRN Reason: Protocol Last Admin: 08/24/17 18:22 Dose: 3 unit Insulin Detemir (Levemir) 16 unit SC Q12H [facility] Last Admin: 08/24/17 08:38 Dose: 16 unit Lactobacillus Acidophilus (Bacid Acidophilus) 1 cap PO BID [facility] Last Admin: 08/24/17 17:33 Dose: 1 cap Lorazepam (Ativan) 1 mg IVP Q2H PRN PRN Reason: Anxiety Last Admin: 08/23/17 13:50 Dose: 1 mg Metoprolol Tartrate (Lopressor) 50 mg PO BID [facility] Last Admin: 08/24/17 17:33 Dose: 50 mg Rosuvastatin Calcium (Crestor) 10 mg PO HS [facility] Last Admin: 08/23/17 22:05 Dose: 10 mg Sevelamer Carbonate (Renvela) 2,400 mg PO TIDCC [facility] Last Admin: 08/24/17 17:32 Dose: 2,400 mg - Labs Labs: 08/24/17 06:08 08/24/17 06:08 PT 13.9 SECONDS (9.7-12.2) H 08/24/17 06:08 INR 1.2 08/24/17 06:08 APTT 55 SECONDS (21-34) H D 08/17/17 06:12
[2017-08-25] MEDS: (Novolog) Insulin Aspart, Recombinant 100 u/ml 10 ml vial SC SCH ×4 (00:40→18:00)
--- NOTE | 2017-08-25 03:51 | PN ---
SUBJECTIVE: The patient is on the trach vent, and he was having tachycardia, atrial flutter today, and the patient is for PEG. He was very tachycardic, in atrial flutter, remains on the vent. PHYSICAL EXAMINATION NECK: Supple. Trach site appears unremarkable. HEART: S1, S2, was tachycardic. LUNGS: Clear. ABDOMEN: Soft, nontender. No guarding, no rigidity present, it is prominent. EXTREMITIES: Have Venodyne boots present. LABORATORY DATA: Labs are noted. Labs show white count is 17.4, hemoglobin 8.9, hematocrit 29.2, platelet count remains 601. Sodium is 137, potassium 4.9. His creatinine remains 6.2. He remains anuric. He has a new catheter on the right chest wall. So, at this time, his white count remains 17. 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 We will follow with him. Allan Lawrence MD
[2017-08-25 06:29] LABS: BASO # 0.1 K/uL (0.0-0.2); BASO % 0.5 % (0.0-2.0); EOS # 0.4 K/uL (0.0-0.7); EOS % 1.9 % (0.0-4.0); HEMATOCRIT 28.9 % (35.0-51.0); LYMPH # 1.7 K/uL (1.0-4.3); LYMPH % 8.8 % (20.0-40.0); MEAN CELL VOLUME 74.5 fL (80.0-94.0); MEAN CORPUSCULAR HGB CONC 30.9 g/dL (33.0-37.0); MEAN PLATELET VOLUME 8.3 fL (7.2-11.7); MONO # 1.7 K/uL (0.0-0.8); MONO % 8.6 % (0.0-10.0); NRBC % 0.1 % (0.0-2.0); PLATELET COUNT 631 K/uL (130-400); RED CELL DISTRIBUTION WIDTH 22.5 % (11.5-14.5); WHITE BLOOD COUNT 19.5 K/uL (4.8-10.8)
[2017-08-25 06:47] LABS: ALB/GLOB RATIO 0.9 (1.0-2.1); BILIRUBIN,TOTAL 0.7 mg/dL (0.2-1.3); MAGNESIUM 2.9 mg/dL (1.6-2.3); PHOSPHOROUS 8.4 mg/dL (2.5-4.5); POTASSIUM 4.5 mmol/L (3.6-5.2); TOTAL PROTEIN 6.9 g/dL (6.3-8.3)
[2017-08-25 08:00] LABS: EOSINOPHIL 2 % (0-4); NEUTROPHIL 75 % (50-75); TOTAL CELLS COUNTED 100
[2017-08-25 08:15] LABS: ABG ALLEN TEST UNABLE; ABG MECHANICAL RATE 14; ARTERIAL BLOOD GAS MODE A/C; ARTERIAL BLOOD HGB O2 SAT 96.7 % (95.0-98.0); ATERIAL BLOOD GAS PEEP 6; CARBOXYHEMOGLOBIN 2.2 % (0.5-1.5); DRAW SITE LR; HHB 0.3 % (0.0-5.0); METHEMOGLOBIN 0.8 % (0.0-3.0)
[2017-08-25] MEDS: Insulin Detemir 100 units/ml Vial (Levemir) SC SCH ×2 (08:45→21:22)
--- NOTE | 2017-08-25 09:37 | CP.PCM.PN ---
Subjective - Date & Time of Evaluation Date of Evaluation: 08/25/17 Time of Evaluation: 09:30 - Subjective Subjective: Medical Attending Note: Patient seen and examined at bedside. Family not present at bedside. Patient's atrial flutter from prior now in NSR on Amiodarone drip. Patient's sedation to be reduce. Spoke with GI fellow, planning for bedside peg placement this morning. Unable to obtain further ROS secondary to patient's clinical condition. Objective - Vital Signs/Intake and Output Vital Signs (last 24 hours): Temp Pulse Resp BP Pulse Ox 99.2 F 90 13 142/45 L 99 08/25/17 04:00 08/25/17 08:00 08/25/17 08:00 08/25/17 06:55 08/25/17 08:00 Intake and Output: 08/25/17 08/25/17 06:59 18:59 Intake Total 542.6 38.3 Balance 542.6 38.3 - Medications Medications: Current Medications Acetaminophen (Tylenol 650mg/20.3ml Solution Ud) 650 mg PO Q6 PRN PRN Reason: Temperature Last Admin: 08/19/17 12:11 Dose: 650 mg Albuterol/Ipratropium (Duoneb 3 Mg/0.5 Mg (3 Ml) Ud) 3 ml INH RQ4 [facility] Last Admin: 08/22/17 11:27 Dose: 3 ml Aspirin (Aspirin Chewable) 81 mg PO DAILY [facility] Last Admin: 08/22/17 10:09 Dose: Not Given Enoxaparin Sodium (Lovenox) 30 mg SC DAILY [facility] Last Admin: 08/22/17 10:00 Dose: Not Given Epoetin Chencho (Procrit) 10,000 unit IV MWF [facility] Last Admin: 08/24/17 09:49 Dose: 10,000 unit Famotidine (Pepcid) 20 mg PO DAILY [facility] Last Admin: 08/24/17 13:06 Dose: 20 mg Cefepime HCl 1 gm/ Dextrose 50 mls @ 100 mls/hr IVPB Q24H [facility] Last Admin: 08/24/17 13:10 Dose: 100 mls/hr Midazolam HCl 100 mg/ Sodium (Chloride) 100 mls @ 1.67 mls/hr IV .Q24H LUIS FERNANDO; 0.02 MG/KG/HR PRN Reason: Protocol Last Titration: 08/25/17 07:50 Dose: 0 mg/kg/hr, 0 mls/hr Amiodarone HCl 900 mg/ (Dextrose) 500 mls @ 16.66 mls/hr IV .Q24H LUIS FERNANDO; 0.5 MG/ MIN PRN Reason: Protocol Stop: 08/25/17 17:59 Last Admin: 08/25/17 00:00 Dose: Not Given Insulin Aspart (Novolog) 0 unit SC Q6 LUIS FERNANDO PRN Reason: Protocol Last Admin: 08/25/17 08:23 Dose: 3 unit Insulin Detemir (Levemir) 16 unit SC Q12H [facility] FERNANDO Last Admin: 08/25/17 08:45 Dose: 16 unit Lactobacillus Acidophilus (Bacid Acidophilus) 1 cap PO BID [facility] Last Admin: 08/24/17 17:33 Dose: 1 cap Lorazepam (Ativan) 1 mg IVP Q2H PRN PRN Reason: Anxiety Last Admin: 08/23/17 13:50 Dose: 1 mg Metoprolol Tartrate (Lopressor) 50 mg PO BID [facility] Last Admin: 08/24/17 17:33 Dose: 50 mg Rosuvastatin Calcium (Crestor) 10 mg PO HS [facility] Last Admin: 08/24/17 21:26 Dose: 10 mg Sevelamer Carbonate (Renvela) 2,400 mg PO TIDCC [facility] Last Admin: 08/25/17 08:45 Dose: 2,400 mg - Labs Labs: 08/25/17 06:19 08/25/17 06:19 PT 13.9 SECONDS (9.7-12.2) H 08/24/17 06:08 INR 1.2 08/24/17 06:08 APTT 55 SECONDS (21-34) H D 08/17/17 06:12 - Constitutional Appears: Non-toxic, Chronically Ill - Head Exam Head Exam: NORMAL INSPECTION - ENT Exam ENT Exam: Mucous Membranes Dry - Respiratory Exam Respiratory Exam: Decreased Breath Sounds, NORMAL BREATHING PATTERN. absent: Rales, Rhonchi Additional comments: on vent on s/p trach - Cardiovascular Exam Cardiovascular Exam: REGULAR RHYTHM, +S1 - GI/Abdominal Exam GI & Abdominal Exam: Soft, Normal Bowel Sounds. absent: Distended, Firm, Guarding, Rigid, Tenderness, Rebound Additional comments: obese habitus - Extremities Exam Extremities Exam: Pedal Edema (reduce). absent: Tenderness - Psychiatric Exam Additional comments: sedated - Skin Skin Exam: Dry, Normal Color, Warm Assessment and Plan - Assessment and Plan (Free Text) Assessment: (1) Acute Respiratory Failure ARDS Cardiac Arrest Pulmonary Edema NONSTEMI Assessment and Plan: * Code Blue on 08/10: asystole, cardiopulmonary resuscitative measures initiated , requiring 3 epis, bicarbonate, ROSC achieved and intubated and brought to the ICU for further management * 08/10: Central line placed by ICU; placed on tridil drip; heparin drip c/w * 08/11: Patient placed on Lasix IV. On heparin drip. No plans for cardiac cath at time time. Chest Xray (08/11/17): NG tube extending into the stomach. Endotracheal tube extending into the mild thoracic trachea. Left sided pacemaker. multiple overlying external wires and tubing, Moderate severe venous congestion with prominent confluent airspace opacities in the mid to lower lung zones with associated small to moderate bilateral pleural effusions. scattered nodular densities in both lungs. Cardiomegaly. Degenerative changes in the spine and shoulders. * 08/12: Chest xray (08/12/17): right basilar opacity. Small right pleural effusion. Lines and tubes unchanged.-->C/w Lasix. Discussed with Dr. Mena (pulm) , recommended for CT Chest w/o contrast for possible ARDS. increased peep 10 * 08/13: pending chest /abdomen xray for this morning; self-extubated and reintubated overnight; off tridil drip secondary to hypotension post intubation ; on heparin drip * CT Chest/Abdomen/Pelvis (08/13): moderate to large bilateral pleural effusions largeer on thr right associated with atelectasis at lower lobes. Nonspecific ground-glass opacities in the upper lobe new may be due to pulmonary vascular congestion. moderately cardiomegaly. No evidence of bowel obstruction. Moderately to markedly enlarged prostate. nonobstructing calculus at mid to lower pole left kidney. Gallstone without evidence of cholecystitis. Scattered diverticulosis without evidence of diverticulitis * Repeat CT Chest 08/18 showed moderate Bilateral Pleural Effusion associated with compressive consolidations. I spoke with Cardiothoracic Surgeon Dr. Lopez and he recommended bilateral pigtail catheters. ICU Team placed Right Chest Pigtail Catheter 08/19 and as only small amount of fluid was produced, Left Chest Pigtail Catheter was not placed. Pleural Fluid studies (Total Protein, LDH , Glucose, Cell count with diff, Gram Stain and Culture, pH) have been ordered . * Patient was planned for Tracheostomy 08/19/17 however due to his PEEP of 14 this is currently on hold. * 08/21: PEEP is down to 6. Tracheostomy is planned for 08/22 and Nurse Minal has been made aware to STOP Glucerna NG feeding after midnight * 08/22: s/p tracheostomy POD 0; aspirin and dvt ppx held today-->will need to follow-up with surgery to see when to restart these medications * 08/23: s/p tracheostomy POD 1; aspirin and dvt ppx on hold-->patient is pending peg placement: GI requesting cardio and pulmonary clearance-->phone number for patient's available with patient's nurse and will be present tomorrow at 930AM * 08/24: s/p tracheostomy POD 2: ; aspirin and dvt ppx on hold-->patient is pending peg placement: cardiology risk assessment provided; awaiting pulmonary; discussed with GI fellow patient is consented for procedure. * 08/25: s/p tracheostomy POD 3: ; aspirin and dvt ppx on hold-->patient is pending peg placement: cardiology risk assessment provided; awaiting pulmonary; discussed with GI fellow patient is consented for procedure. (2) Chest pain Assessment and Plan: * Cardiology (Dr. Cortés) on board-->help appreciated * All trops WNL; Troponin positive in light of CPR * EKG x2 = Sinus tachycardia notes with possible left atrial enlargement; no apparent T segment elevations in contiguous leads * Patient was Heparin Drip but this was discontinued 08/17/17 * Patient's cardiac catherization cancelled secondary to rise in creatinine (2.3 ) on 08/09/17. * Patient has hx of abnormal stress test. Discussed with cardiology and nephrology given change in Cr on 08/09. * Echocardiogram (08/08/17): left ventricle systolic function is severely impaired. EF: 25-30%; global hypokinesis of left ventricle mild aortic regurgitation. Mitral regurgitation is moderate. Moderate-severe pulmonary hypertesnion * Hx of ACID * Crestor 10mg POqHS * Metoprolol Succinate 50 mg PO 1x/day was placed on Hold 08/17/17 * Off Arb secondary to ARF * TSH: 1.16; T4: 1.53 * 08/22: held Aspirin 81mg PO daily and Plavix 75mg PO daily-->will need to follow-up with surgery when to restart medications 08/22 * 08/24: aspirin and dvt ppx on hold-->patient is pending peg placement: cardiology risk assessment provided; awaiting pulmonary; discussed with GI fellow patient is consented for procedure. Will need to be restarted when GI determines to restart post-peg placement (3) Acute Systolic CHF exacerbation Assessment and Plan: * Cardiology Dr. Cortés is following * Transferred to the ICU on 08/10 following cardiac arrest and intubation. * Echocardiogram (08/08/17): left ventricular systolic function is severely impaired. EF: 25-30%; global hypokinesis of left ventricle mild aortic regurgitation. Mitral regurgitation is moderate. Moderate-severe pulmonary hypertension * Height of bed at 45 degrees, Strict ins and outs, monitor daily weights * Crestor 10mg POqHS * Metoprolol Succinate 50mg PO 1x/day was placed on Hold 08/17/17 * Off Arb secondary to ARF * Has been receiving HD 08/16/17 and 08/19/17 to help reduce the pulmonary congestion * Started on Dobutamine 2.5 mcg/kg/min 08/19/17-08/22/17 * 08/22: held Aspirin 81mg PO daily and Plavix 75mg PO daily-->will need to follow-up with surgery when to restart medications 08/22 * 08/23: held Aspirin 81mg PO daily, Plavix 75mg PO daily, dvt ppx--> patient's pending possible peg placement pending cardio/pulm clearance * 08/24: held Aspirin 81mg PO daily, Plavix 75mg PO daily, dvt ppx--> patient's pending possible peg placement pending cardio/pulm clearance Status: Acute (4) Pneumonia Assessment and Plan: * Pulmonary (Dr. Mena) on board-->help appreciated; Dr. Mathew covering while Dr. Mena away * Infectious Disease (Dr. Lawrence)-->help appreciated * Rapid A strep, Influenza A and B studies, Urine Legionella, Mycoplasma studies = Negative * Florastor 250mg PO bid * +Strep Pneumoniae in the urine * 08/12: Will repeat urine studies and exchange out the jaquez * 08/18/17 Urine culture: no growth * Meropenem 500mg IV Q 8 hours (08/14/17 through 08/18/17) and Zosyn 2.25 mg IV Q6H (08/13/17 through 08/18/17) * s/p right posterior chest tube 08/19 * Sputum Culture 08/19/17 shows NO growth * Pleural fluid 08/19/17: no growth * Chest xray (08/24/17): heterogeneous opacity at the right lower lung. Mild to moderate pulmonary vascular congestion. Appropriate position of the support devices * Cefepime 1 gm IV Q24H (08/19/17)-->DAY 5 Status: Acute (5) CAD (coronary artery disease) Assessment and Plan: * Hx of cardiac stent in the past * Cardiac cath on hold given events on 08/10 Status: Acute (6) HTN (hypertension) Assessment and Plan: * Metoprolol XL 50 mg PO 1x/day Status: Chronic (7) CKD (chronic kidney disease) Assessment and Plan: * Dr. Miranda (nephrology) consulted on the case * Hx of CKD * GFR 45 which appears to be around baseline * Stopped ARB given rise in CR * Off IV fluids given pulmonary edema * Monitor in and output: has not been producing significant amount of urine and HD was recommended by Nephrology * s/p Permcath 08/22 * 08/23: Started on Renevela 800mg PO tidcc discussed with nephro-> hyperphosphatemia Status: Acute (8) Diabetes mellitus Assessment and Plan: * Accuchecks Q6H * A1c 8.4 * 08/20: Required 26 units on Aspart ISS from 4 AM 08/19/17 through 4 AM 08/20/17 therefore half of this was added to total Levemir dose. Levemir now is 16 Units SC Q12H * Insulin Aspart ISS Q6H * 08/21: Patient required 32 units on Aspart ISS from 4 AM 08/20/17 through 4 AM . Was going to increase the Levemir dose to 32 units, however patient will be NPO after midnight 08/21/17 therefore this was not done. * 08/23 Insulin being held since patient took his OGT tube the night before Status: Chronic (9) HLD (hyperlipidemia) Assessment and Plan: * On Crestor 10 mg PO HS-->on hold since patient removed OGT tube Status: Chronic (10) Constipation Assessment and Plan: * Having bowel movements per nursing notes (08/14/17) * Senokot 50/8.6 1 tab PO 2x/day * 08/12: Will given ducolax suppository X1 * 08/13: has not had bowel movement; ordered for abdominal/chest xray in light of abdominal distension * CT Chest/Abdomen/Pelvis (08/13): moderate to large bilateral pleural effusions largeer on thr right associated with atelectasis at lower lobes. Nonspecific ground-glass opacities in the upper lobe new may be due to pulmonary vascular congestion. moderately cardiomegaly. No evidence of bowel obstruction. Moderately to markedly enlarged prostate. nonobstructing calculus at mid to lower pole left kidney. Gallstone without evidence of cholecystitis. Scattered diverticulosis without evidence of diverticulitis * 08/14: Patient is not obstructed per review CT scan * 08/19: He is moving his bowels as of 08/19/17 but the Senokot was placed on hold has the movements have been very soft * 08/21: patient is having normal bowel movements as per Nurse Minal Status: Chronic (11) Anemia Assessment and Plan: * Heme-oncology (Dr. Giles bender) on board-->help appreciated * Likely iron deficiency anemia based on prior admissions * Ferritin 27.4, Iron 22, TIBC 322, % Saturation 7 * Ferric Sodium Gluconate 125mg IVPB daily (active 08/08-08/16) * Procrit 10,000 units M-W- * Monitor Hgb/Hct: stable Status: Chronic (12) History of DVT (deep vein thrombosis) Assessment and Plan: * Patient was previously on Eliquis for a prior history of DVT. * Repeat dopplers 08/09/17 are negative for DVT * Off Heparin Drip 08/17/17 * Off DVT ppx since 08/22/17 secondary trach placement and possible peg placement Status: Acute (13) UTI * Infectious disease (Dr. Lawrence) on board-->help appreciated * Exchange jaquez out and repeat urine cultures * Urine Culture 08/12/17 showed Gram Negative Rods: NO identification and NO sensitivities were performed * Meropenem 500mg IV Q 12hours (active since 08/14/17 through 08/18/17) to cover for UTI per ID * Repeat Urine Culture 08/18/17 shows NO growth (14) Confusion; Alzheimer's Dementia Assessment and Plan: * Per daughter, patient has been getting bouts of confusion over the past year but appears at baseline. Patient has not seen formal neurology as outpatient per daughter. Per , prior to event, noted Alzheimers' disease dx one year ago * CT head w/o contrast (08/10/17):acute os subacute lacune infarct is not excluded in the left basal ganglia inferiorly with definitive chronic lacune identified in the right basal ganglia superiorly. No acute or subacute lobar brain infarction is appreciable by standard CT criteria. Mild age-related neuro degenerative changes are identifed. No acute intracranial hemorrhage or mass is identified throughout * 08/11: Patient gets agitated and will fight to pull the intubation tube out per nursing. Was placed on sedation and Ativan PRN * 08/12: patient is responsive to questions, able to move all extremities, off sedation. Patient is on PRN Versed and Ativan PRN. Will respond to yes and no questions * 08/13: Back on sedation since reintubation; patient is moving all extremities * 08/18: Versed 2 mg IV Q3H PRN Anxiety * 08/23: patient very agitated; started on Midazolam 100mg IV 24 HR, per discussion with ICU, unable to ascertain if patient is in pain (15) Prophylactic measure Assessment and Plan: * Pepcid 20mg PO daily * held Lovenox 30 mg SC 1x/day secondary to OR 08/22-->f/u when to restart anticoagulation; patient is pending possible peg placement * Patient is pending peg placement * Patient took out his OGT tube 08/22; to have NGT tube reinsertion on evening shift; PO meds are being held at this time * Bacid 1 cap NGT 2x/day * Atrovent Q6H PRN * Tylenol 650 mg PO Q6H PRN Temperature * Albumin 25% 12.5 gm IV Q2H x 3 doses on 08/18/17 and 08/19/17 * s/p trachesostomy 08/22 * s/p Permcath placement 08/22 removal Kurtis catheter * s/p right posterior chest tube 08/19 * (Jovita Serrano): -->number provided to the nurse and will be present tomorrow at 930am-->informed GI fellow in regards to obtaining consent for peg Attending/Attestation - Attestation I have personally seen and examined this patient.: Yes I have fully participated in the care of the patient.: Yes I have reviewed all pertinent clinical information, including history, physical exam and plan: Yes Notes (Text): This is late computer entry for 08/25/17. Patient seen, examined and case discussed with the ICU. Patient seen this morning. Patient on Amiodarone drip. Patient is in sinus HR: 80s. Spoke with Dr. Jeffers the night prior covering Dr. Mena who is away, pulmonary clearance provided. Discussed with ICU, patient is on Amiodarone drip to be transitioned to PO Amiodarone in the evening. Patient received bed side peg placement today. Patient's white count mildly rising. Ordered for procalcitonin tomorrow. Patient is on Maxipime IV per ID. Spoke briefly with the at bedside at time of the peg placement, for possible consideration for LTAC. Will speak more to the . Patient's right chest tube removed yesterday and did not have left pigtail placed yet. When GI clears to use the peg, will restart medications oral medications via peg. (1) Acute Respiratory Failure ARDS Cardiac Arrest Pulmonary Edema NONSTEMI Assessment and Plan: * Code Blue on 08/10: asystole, cardiopulmonary resuscitative measures initiated , requiring 3 epis, bicarbonate, ROSC achieved and intubated and brought to the ICU for further management * 08/10: Central line placed by ICU; placed on tridil drip; heparin drip c/w * 08/11: Patient placed on Lasix IV. On heparin drip. No plans for cardiac cath at time time. Chest Xray (08/11/17): NG tube extending into the stomach. Endotracheal tube extending into the mild thoracic trachea. Left sided pacemaker. multiple overlying external wires and tubing, Moderate severe venous congestion with prominent confluent airspace opacities in the mid to lower lung zones with associated small to moderate bilateral pleural effusions. scattered nodular densities in both lungs. Cardiomegaly. Degenerative changes in the spine and shoulders. * 08/12: Chest xray (08/12/17): right basilar opacity. Small right pleural effusion. Lines and tubes unchanged.-->C/w Lasix. Discussed with Dr. Mena (pulm) , recommended for CT Chest w/o contrast for possible ARDS. increased peep 10 * 08/13: pending chest /abdomen xray for this morning; self-extubated and reintubated overnight; off tridil drip secondary to hypotension post intubation ; on heparin drip * CT Chest/Abdomen/Pelvis (08/13): moderate to large bilateral pleural effusions largeer on thr right associated with atelectasis at lower lobes. Nonspecific ground-glass opacities in the upper lobe new may be due to pulmonary vascular congestion. moderately cardiomegaly. No evidence of bowel obstruction. Moderately to markedly enlarged prostate. nonobstructing calculus at mid to lower pole left kidney. Gallstone without evidence of cholecystitis. Scattered diverticulosis without evidence of diverticulitis * Repeat CT Chest 08/18 showed moderate Bilateral Pleural Effusion associated with compressive consolidations. I spoke with Cardiothoracic Surgeon Dr. Lopez and he recommended bilateral pigtail catheters. ICU Team placed Right Chest Pigtail Catheter 08/19 and as only small amount of fluid was produced, Left Chest Pigtail Catheter was not placed. Pleural Fluid studies (Total Protein, LDH , Glucose, Cell count with diff, Gram Stain and Culture, pH) have been ordered . * Patient was planned for Tracheostomy 08/19/17 however due to his PEEP of 14 this is currently on hold. * 08/21: PEEP is down to 6. Tracheostomy is planned for 08/22 and Nurse Fontaine has been made aware to STOP Glucerna NG feeding after midnight * 08/22: s/p tracheostomy POD 0; aspirin and dvt ppx held today-->will need to follow-up with surgery to see when to restart these medications * 08/23: s/p tracheostomy POD 1; aspirin and dvt ppx on hold-->patient is pending peg placement: GI requesting cardio and pulmonary clearance-->phone number for patient's available with patient's nurse and will be present tomorrow at 930AM * 08/24: s/p tracheostomy POD 2: ; aspirin and dvt ppx on hold-->patient is pending peg placement: cardiology risk assessment provided; awaiting pulmonary; discussed with GI fellow patient is consented for procedure. * 08/25: s/p tracheostomy POD 3:; aspirin and dvt ppx on hold-->patient is s/peg placement POD 0: cardiology risk assessment provided, plum cleared-->will need to restart patient's aspirin, plavix, and possible anticoagulation for atrial flutter. will discuss with cardiology, following if GI post procedure permits to restart aspirin, plavix, and start anticoagulation. (2) Chest pain Assessment and Plan: * Cardiology (Dr. Cortés) on board-->help appreciated * All trops WNL; Troponin positive in light of CPR * EKG x2 = Sinus tachycardia notes with possible left atrial enlargement; no apparent T segment elevations in contiguous leads * Patient was Heparin Drip but this was discontinued 08/17/17 * Patient's cardiac catherization cancelled secondary to rise in creatinine (2.3 ) on 08/09/17. * Patient has hx of abnormal stress test. Discussed with cardiology and nephrology given change in Cr on 08/09. * Echocardiogram (08/08/17): left ventricle systolic function is severely impaired. EF: 25-30%; global hypokinesis of left ventricle mild aortic regurgitation. Mitral regurgitation is moderate. Moderate-severe pulmonary hypertesnion * Hx of ACID * Crestor 10mg POqHS * Metoprolol Succinate 50 mg PO 1x/day was placed on Hold 08/17/17 * Off Arb secondary to ARF * TSH: 1.16; T4: 1.53 * 08/22: held Aspirin 81mg PO daily and Plavix 75mg PO daily-->will need to follow-up with surgery when to restart medications 08/22 * 08/24: aspirin and dvt ppx on hold-->patient is pending peg placement: cardiology risk assessment provided; awaiting pulmonary; discussed with GI fellow patient is consented for procedure. Will need to be restarted when GI determines to restart post-peg placement * 08/25: s/p tracheostomy POD 3:; aspirin and dvt ppx on hold-->patient is s/peg placement POD 0: cardiology risk assessment provided, plum cleared-->will need to restart patient's aspirin, plavix, and possible anticoagulation for atrial flutter. will discuss with cardiology, following if GI post procedure permits to restart aspirin, plavix, and start anticoagulation. (3) Acute Systolic CHF exacerbation Assessment and Plan: * Cardiology Dr. Cotrés is following * Transferred to the ICU on 08/10 following cardiac arrest and intubation. * Echocardiogram (08/08/17): left ventricular systolic function is severely impaired. EF: 25-30%; global hypokinesis of left ventricle mild aortic regurgitation. Mitral regurgitation is moderate. Moderate-severe pulmonary hypertension * Height of bed at 45 degrees, Strict ins and outs, monitor daily weights * Crestor 10mg POqHS * Metoprolol Succinate 50mg PO 1x/day was placed on Hold 08/17/17 * Off Arb secondary to ARF * Has been receiving HD 08/16/17 and 08/19/17 to help reduce the pulmonary congestion * Started on Dobutamine 2.5 mcg/kg/min 08/19/17-08/22/17 * 08/22: held Aspirin 81mg PO daily and Plavix 75mg PO daily-->will need to follow-up with surgery when to restart medications 08/22 * 08/23: held Aspirin 81mg PO daily, Plavix 75mg PO daily, dvt ppx--> patient's pending possible peg placement pending cardio/pulm clearance * 08/24: held Aspirin 81mg PO daily, Plavix 75mg PO daily, dvt ppx--> patient's pending possible peg placement pending cardio/pulm clearance * 08/25: s/p tracheostomy POD 3:; aspirin and dvt ppx on hold-->patient is s/peg placement POD 0: cardiology risk assessment provided, plum cleared-->will need to restart patient's aspirin, plavix, and possible anticoagulation for atrial flutter. will discuss with cardiology, following if GI post procedure permits to restart aspirin, plavix, and start anticoagulation. Status: Acute (4) Pneumonia Assessment and Plan: * Pulmonary (Dr. Mena) on board-->help appreciated; Dr. Mathew covering while Dr. Mena away * Infectious Disease (Dr. Lawrence)-->help appreciated * Rapid A strep, Influenza A and B studies, Urine Legionella, Mycoplasma studies = Negative * Florastor 250mg PO bid * +Strep Pneumoniae in the urine * 08/12: Will repeat urine studies and exchange out the jaquez * 08/18/17 Urine culture: no growth * Meropenem 500mg IV Q 8 hours (08/14/17 through 08/18/17) and Zosyn 2.25 mg IV Q6H (08/13/17 through 08/18/17) * s/p right posterior chest tube 08/19 * Sputum Culture 08/19/17 shows NO growth * Pleural fluid 08/19/17: no growth * Chest xray (08/24/17): heterogeneous opacity at the right lower lung. Mild to moderate pulmonary vascular congestion. Appropriate position of the support devices * Cefepime 1 gm IV Q24H (08/19/17)-->DAY 6 Status: Acute (5) CAD (coronary artery disease) Assessment and Plan: * Hx of cardiac stent in the past * Cardiac cath on hold given events on 08/10 Status: Acute (6) HTN (hypertension) Assessment and Plan: * Metoprolol XL 50 mg PO 1x/day Status: Chronic (7) CKD (chronic kidney disease) Assessment and Plan: * Dr. Miranda (nephrology) consulted on the case * Hx of CKD * GFR 45 which appears to be around baseline * Stopped ARB given rise in CR * Off IV fluids given pulmonary edema * Monitor in and output: has not been producing significant amount of urine and HD was recommended by Nephrology * s/p Permcath 08/22 Status: Acute (8) Diabetes mellitus Assessment and Plan: * Accuchecks Q6H * A1c 8.4 * 08/20: Required 26 units on Aspart ISS from 4 AM 08/19/17 through 4 AM 08/20/17 therefore half of this was added to total Levemir dose. Levemir now is 16 Units SC Q12H * Insulin Aspart ISS Q6H * 08/21: Patient required 32 units on Aspart ISS from 4 AM 08/20/17 through 4 AM . Was going to increase the Levemir dose to 32 units, however patient will be NPO after midnight 08/21/17 therefore this was not done. * 08/23 Insulin being held since patient took his OGT tube the night before Status: Chronic (9) HLD (hyperlipidemia) Assessment and Plan: * On Crestor 10 mg PO HS-->on hold since patient removed OGT tube Status: Chronic (10) Constipation Assessment and Plan: * Having bowel movements per nursing notes (08/14/17) * Senokot 50/8.6 1 tab PO 2x/day * 08/12: Will given ducolax suppository X1 * 08/13: has not had bowel movement; ordered for abdominal/chest xray in light of abdominal distension * CT Chest/Abdomen/Pelvis (08/13): moderate to large bilateral pleural effusions largeer on thr right associated with atelectasis at lower lobes. Nonspecific ground-glass opacities in the upper lobe new may be due to pulmonary vascular congestion. moderately cardiomegaly. No evidence of bowel obstruction. Moderately to markedly enlarged prostate. nonobstructing calculus at mid to lower pole left kidney. Gallstone without evidence of cholecystitis. Scattered diverticulosis without evidence of diverticulitis * 08/14: Patient is not obstructed per review CT scan * 08/19: He is moving his bowels as of 08/19/17 but the Senokot was placed on hold has the movements have been very soft * 08/21: patient is having normal bowel movements as per Nurse Minal Status: Chronic (11) Anemia Assessment and Plan: * Heme-oncology (Dr. Giles bender) on board-->help appreciated * Likely iron deficiency anemia based on prior admissions * Ferritin 27.4, Iron 22, TIBC 322, % Saturation 7 * Ferric Sodium Gluconate 125mg IVPB daily (active 08/08-08/16) * Procrit 10,000 units M-W-F * Monitor Hgb/Hct: stable Status: Chronic (12) History of DVT (deep vein thrombosis) Assessment and Plan: * Patient was previously on Eliquis for a prior history of DVT. * Repeat dopplers 08/09/17 are negative for DVT * Off Heparin Drip 08/17/17 * Off DVT ppx since 08/22/17 secondary trach placement and possible peg placement Status: Acute (13) UTI * Infectious disease (Dr. Lawrence) on board-->help appreciated * Exchange jaquez out and repeat urine cultures * Urine Culture 08/12/17 showed Gram Negative Rods: NO identification and NO sensitivities were performed * Meropenem 500mg IV Q 12hours (active since 08/14/17 through 08/18/17) to cover for UTI per ID * Repeat Urine Culture 08/18/17 shows NO growth (14) Confusion; Alzheimer's Dementia Assessment and Plan: * Per daughter, patient has been getting bouts of confusion over the past year but appears at baseline. Patient has not seen formal neurology as outpatient per daughter. Per , prior to event, noted Alzheimers' disease dx one year ago * CT head w/o contrast (08/10/17):acute os subacute lacune infarct is not excluded in the left basal ganglia inferiorly with definitive chronic lacune identified in the right basal ganglia superiorly. No acute or subacute lobar brain infarction is appreciable by standard CT criteria. Mild age-related neuro degenerative changes are identifed. No acute intracranial hemorrhage or mass is identified throughout * 08/11: Patient gets agitated and will fight to pull the intubation tube out per nursing. Was placed on sedation and Ativan PRN * 08/12: patient is responsive to questions, able to move all extremities, off sedation. Patient is on PRN Versed and Ativan PRN. Will respond to yes and no questions * 08/13: Back on sedation since reintubation; patient is moving all extremities * 08/18: Versed 2 mg IV Q3H PRN Anxiety * 08/23: patient very agitated; started on Midazolam 100mg IV 24 HR, per discussion with ICU, unable to ascertain if patient is in pain (15) Prophylactic measure Assessment and Plan: * Pepcid 20mg PO daily * held Lovenox 30 mg SC 1x/day secondary to OR 08/22-->f/u when to restart anticoagulation; patient is pending possible peg placement * Patient is pending peg placement * Patient took out his OGT tube 08/22; to have NGT tube reinsertion on evening shift; PO meds are being held at this time * Bacid 1 cap NGT 2x/day * Atrovent Q6H PRN * Tylenol 650 mg PO Q6H PRN Temperature * Albumin 25% 12.5 gm IV Q2H x 3 doses on 08/18/17 and 08/19/17 * s/p trachesostomy 08/22 * s/p Permcath placement 08/22 removal Kurtis catheter * s/p right posterior chest tube 08/19-->removed 08/24 * (Jovita Serrano): -->number provided to the nurse- ->consented for peg placement
--- NOTE | 2017-08-25 09:42 | CP.PCM.PN ---
Subjective - Date & Time of Evaluation Date of Evaluation: 08/25/17 Time of Evaluation: 09:40 - Subjective Subjective: Remains on vent, sedated, oliguric Has had arrythmias- on amiodarone Need to change from renvela- cannot give via GT discussed case with team Objective - Vital Signs/Intake and Output Vital Signs (last 24 hours): Temp Pulse Resp BP Pulse Ox 99.2 F 90 13 142/45 L 99 08/25/17 04:00 08/25/17 08:00 08/25/17 08:00 08/25/17 06:55 08/25/17 08:00 Intake and Output: 08/25/17 08/25/17 06:59 18:59 Intake Total 542.6 38.3 Balance 542.6 38.3 - Medications Medications: Current Medications Acetaminophen (Tylenol 650mg/20.3ml Solution Ud) 650 mg PO Q6 PRN PRN Reason: Temperature Last Admin: 08/19/17 12:11 Dose: 650 mg Albuterol/Ipratropium (Duoneb 3 Mg/0.5 Mg (3 Ml) Ud) 3 ml INH RQ4 LUIS FERNANDO Last Admin: 08/22/17 11:27 Dose: 3 ml Aspirin (Aspirin Chewable) 81 mg PO DAILY LUIS FERNANDO Last Admin: 08/22/17 10:09 Dose: Not Given Calcium Acetate (Phoslo) 667 mg GT TID LUIS FERNANDO Enoxaparin Sodium (Lovenox) 30 mg SC DAILY LUIS FERNANDO Last Admin: 08/22/17 10:00 Dose: Not Given Epoetin Chencho (Procrit) 10,000 unit IV MWF [facility] Last Admin: 08/24/17 09:49 Dose: 10,000 unit Famotidine (Pepcid) 20 mg PO DAILY LUIS FERNANDO Last Admin: 08/24/17 13:06 Dose: 20 mg Cefepime HCl 1 gm/ Dextrose 50 mls @ 100 mls/hr IVPB Q24H LUIS FERNANDO Last Admin: 08/24/17 13:10 Dose: 100 mls/hr Midazolam HCl 100 mg/ Sodium (Chloride) 100 mls @ 1.67 mls/hr IV .Q24H LUIS FERNANDO; 0.02 MG/KG/HR PRN Reason: Protocol Last Titration: 08/25/17 07:50 Dose: 0 mg/kg/hr, 0 mls/hr Amiodarone HCl 900 mg/ (Dextrose) 500 mls @ 16.66 mls/hr IV .Q24H LUIS FERNANDO; 0.5 MG/ MIN PRN Reason: Protocol Stop: 08/25/17 17:59 Last Admin: 08/25/17 00:00 Dose: Not Given Insulin Aspart (Novolog) 0 unit SC Q6 LUIS FERNANDO PRN Reason: Protocol Last Admin: 08/25/17 08:23 Dose: 3 unit Insulin Detemir (Levemir) 16 unit SC Q12H [facility] Last Admin: 08/25/17 08:45 Dose: 16 unit Lactobacillus Acidophilus (Bacid Acidophilus) 1 cap PO BID [facility] Last Admin: 08/24/17 17:33 Dose: 1 cap Lorazepam (Ativan) 1 mg IVP Q2H PRN PRN Reason: Anxiety Last Admin: 08/23/17 13:50 Dose: 1 mg Metoprolol Tartrate (Lopressor) 50 mg PO BID [facility] Last Admin: 08/24/17 17:33 Dose: 50 mg Rosuvastatin Calcium (Crestor) 10 mg PO HS [facility] Last Admin: 08/24/17 21:26 Dose: 10 mg - Labs Labs: 08/25/17 06:19 08/25/17 06:19 PT 13.9 SECONDS (9.7-12.2) H 08/24/17 06:08 INR 1.2 08/24/17 06:08 APTT 55 SECONDS (21-34) H D 08/17/17 06:12 - Constitutional Appears: In Acute Distress, Chronically Ill - Head Exam Head Exam: ATRAUMATIC, NORMAL INSPECTION - Neck Exam Neck Exam: Normal Inspection. absent: Tenderness - Respiratory Exam Respiratory Exam: Decreased Breath Sounds, Respiratory Distress - Cardiovascular Exam Cardiovascular Exam: REGULAR RHYTHM, +S1 - GI/Abdominal Exam GI & Abdominal Exam: Soft. absent: Tenderness - Extremities Exam Extremities Exam: Normal Inspection. absent: Tenderness - Neurological Exam Neurological Exam: Altered, Motor Sensory Deficit - Skin Skin Exam: Dry, Warm Assessment and Plan (1) Acute on chronic renal failure Status: Acute (2) CAD (coronary artery disease) Status: Acute (3) CHF exacerbation Status: Chronic (4) Type 2 diabetes mellitus with diabetic nephropathy Status: Acute (5) CKD stage 4 due to type 2 diabetes mellitus Status: Acute (6) Cardiorenal disease Status: Acute - Assessment and Plan (Free Text) Plan: Try to increase UF with HD Change to phoslo GT Next dialysis MWF
[2017-08-25] MEDS: Lactobacillus Acidophilus 500 MU Cap PO SCH ×2 (10:00→17:32)
[2017-08-25 11:31] LABS: ABG ALLEN TEST UNABLE; ABG MECHANICAL RATE 12; ARTERIAL BLOOD GAS MODE A/C; ARTERIAL BLOOD HGB O2 SAT 95.5 % (95.0-98.0); ATERIAL BLOOD GAS PEEP 6; CARBOXYHEMOGLOBIN 2.2 % (0.5-1.5); DRAW SITE LR; HHB 1.8 % (0.0-5.0); METHEMOGLOBIN 0.6 % (0.0-3.0)
--- NOTE | 2017-08-25 11:59 | CARD ---
APPROVED REPORT EKG Measurement Heart [id number] <Conclusion> Atrial flutter with variable response left axis deviation Left anterior fascicular block ST & T wave abnormality, consider lateral ischemia Abnormal ECG
[2017-08-25] MEDS ORDERED: Etomidate 20 mg/10ml Inj IV ONE (14:28)
[2017-08-25] MEDS ORDERED: Midazolam 2 MG/2 ML VIAL ONE (15:48)
[2017-08-25] MEDS: Midazolam 50 mg/10 ml 100 MG in Sodium Chloride 0.9% 80 ML IV SCH (16:00)
--- NOTE | 2017-08-25 17:17 | RAD ---
HISTORY: Pleural effusion. 11:35. COMPARISON: Multiple serial examinations preceding the most recent study: August 24, 2017. Study performed 08:10 FINDINGS: LUNGS: Stable multifocal infiltrates PLEURA: Stable left pleural effusion. No appreciable right pleural effusion. Pigtail catheter in the right pleural space. No pneumothorax identified. CARDIOVASCULAR: Cardiomegaly.Position/ configuration of pacemaker Satisfactory. OSSEOUS STRUCTURES: No significant abnormalities. VISUALIZED UPPER ABDOMEN: Normal. OTHER FINDINGS: Stable, satisfactory position ventilatory, vascular and nasogastric apparatus. IMPRESSION: No significant interval change compared to the prior examination(s).
--- NOTE | 2017-08-25 17:38 | CP.CCUPN ---
<FruitaLacy petersonjerilyn E - Last Filed: 08/25/17 17:35> CCU Subjective - Physician Review Subjective (Free Text): Patient seen and examined at bedside. Patient was alert with extraocular movement. Patient is with tracheostomy. As per nursing, there were no acute issues overnight. Plans for PEG tube placement today. 5 CCU Objective - Vital Signs / Intake & Output Vital Signs (Last 4 hours): Vital Signs Temp Pulse Resp BP Pulse Ox 08/25/17 17:30 82 18 110/48 L 99 08/25/17 15:53 98.9 F 91 H 19 136/52 L 98 08/25/17 14:00 87 14 100 08/25/17 13:54 85 26 H 124/51 L 99 Intake and Output (Last 8hrs): Intake & Output 08/25/17 08/25/17 08/25/17 06:59 14:59 22:59 Intake Total 323.0 176.8 50 Balance 323.0 176.8 50 Weight 185 lb Intake: IV 0 50 Intake, IV Amount 163.0 136.8 Right Medial Port 12.8 3.2 Right Proximal Port 150.2 133.6 Tube Feeding 160 40 Other: # Voids Urine, Voided 0 # Bowel Movements 0 - Physical Exam Head: Positive for: Atraumatic Respiratory/Chest: Positive for: Clear to Auscultation, Other (Tracheostomy ) Cardiovascular: Positive for: Regular Rate and Rhythm, Normal S1, S2, Tachycardic Abdomen: Positive for: Distention, Normal Bowel Sounds, Other (obese habitus) Upper Extremity: Negative for: Edema Lower Extremity: Negative for: Edema, Swelling Skin: Positive for: Warm, Dry Psychiatric: Positive for: Alert (off sedation) - Medications Active Medications: Active Medications Generic Name Dose Route Start Last Admin Trade Name Freq PRN Reason Stop Dose Admin Acetaminophen 650 mg 08/11/17 17:40 08/19/17 12:11 Tylenol 650mg/20.3ml Solution Ud PO 650 mg Q6 PRN Administration Temperature Albuterol/Ipratropium 3 ml 08/18/17 12:00 08/22/17 11:27 Duoneb 3 Mg/0.5 Mg (3 Ml) Ud INH 3 ml RQ4 LUIS FERNANDO Administration Amiodarone HCl 200 mg 08/26/17 10:00 Cordarone PO TID LUIS FERNANDO Aspirin 81 mg 08/14/17 11:15 08/22/17 10:09 Aspirin Chewable PO Not Given DAILY LUIS FERNANDO Calcium Acetate 667 mg 08/25/17 10:00 08/25/17 17:31 Phoslo GT 667 mg TID LUIS FERNANDO Administration Enoxaparin Sodium 30 mg 08/17/17 10:00 08/22/17 10:00 Lovenox SC Not Given DAILY LUIS FERNANDO Epoetin Chencho 10,000 unit 08/17/17 14:00 08/24/17 09:49 Procrit IV 10,000 unit MWF LUIS FERNANDO Administration Famotidine 20 mg 08/09/17 10:00 08/24/17 13:06 Pepcid PO 20 mg DAILY LUIS FERNANDO Administration Cefepime HCl 1 gm/ Dextrose 50 mls @ 100 mls/hr 08/19/17 12:00 08/25/17 12:51 IVPB 100 mls/hr Q24H LUIS FERNANDO Administration Midazolam HCl 100 mg/ Sodium 100 mls @ 1.67 mls/hr 08/23/17 16:00 08/25/17 16 :00 Chloride IV Not Given .Q24H LUIS FERNANDO Protocol 0.02 MG/KG/HR Amiodarone HCl 900 mg/ 500 mls @ 16.66 mls/hr 08/25/17 00:00 08/25/17 17:30 Dextrose IV 08/25/17 17:59 16.66 mls/hr .Q24H LUIS FERNANDO Administration Protocol 0.5 MG/MIN Insulin Aspart 0 unit 08/23/17 13:34 08/25/17 12:00 Novolog SC Not Given Q6 LUIS FERNANDO Protocol Insulin Detemir 16 unit 08/20/17 08:18 08/25/17 08:45 Levemir SC 16 unit Q12H LUIS FERNANDO Administration Lactobacillus Acidophilus 1 cap 08/13/17 18:00 08/25/17 17:32 Bacid Acidophilus PO 1 cap BID LUIS FERNANDO Administration Lorazepam 1 mg 08/23/17 10:28 08/23/17 13:50 Ativan IVP 1 mg Q2H PRN Administration Anxiety Metoprolol Tartrate 50 mg 08/22/17 09:09 08/25/17 17:32 Lopressor PO 50 mg BID LUIS FERNANDO Administration Rosuvastatin Calcium 10 mg 08/06/17 22:00 08/24/17 21:26 Crestor PO 10 mg HS LUIS FERNANDO Administration - Patient Studies Lab Studies: Lab Studies 08/25/17 08/25/17 08/25/17 Range/Units 11:56 11:28 08:13 WBC (4.8-10.8) K/uL RBC (4.40-5.90) Mil/uL Hgb (12.0-18.0) g/dL Hct (35.0-51.0) % MCV (80.0-94.0) fL MCH (27.0-31.0) pg MCHC (33.0-37.0) g/dL RDW (11.5-14.5) % Plt Count (130-400) K/uL MPV (7.2-11.7) fL Neut % (Auto) (50.0-75.0) % Lymph % (Auto) (20.0-40.0) % Horry % (Auto) (0.0-10.0) % Eos % (Auto) (0.0-4.0) % Baso % (Auto) (0.0-2.0) % Neut # (1.8-7.0) K/uL Lymph # (1.0-4.3) K/uL Horry # (0.0-0.8) K/uL Eos # (0.0-0.7) K/uL Baso # (0.0-0.2) K/uL Neutrophils % (Manual) (50-75) % Band Neutrophils % (0-2) % Lymphocytes % (Manual) (20-40) % Monocytes % (Manual) (0-10) % Eosinophils % (Manual) (0-4) % Platelet Estimate (NORMAL) Polychromasia Hypochromasia (manual) Anisocytosis (manual) Microcytosis (manual) Ovalocytes Puncture Site Lr Lr pCO2 36 33 L (35-45) mm/Hg pO2 82 102 H (80-100) mm/Hg HCO3 24.7 23.9 (21-28) mmol/L ABG pH 7.43 7.44 (7.35-7.45) ABG Total CO2 25.0 23.4 (22-28) mmol/L ABG O2 Saturation 98.2 H 99.7 H (95-98) % ABG Base Excess -0.3 -1.4 (-2.0-3.0) mmol/L ABG Hemoglobin 8.9 L 8.3 L (11.7-17.4) g/dL ABG Carboxyhemoglobin 2.2 H 2.2 H (0.5-1.5) % POC ABG HHb (Measured) 1.8 0.3 (0.0-5.0) % ABG Methemoglobin 0.6 0.8 (0.0-3.0) % Uriel Test Unable Unable A-a O2 Difference 158.0 213.0 mm/Hg Respiratory Index 1.9 2.1 Hgb O2 Saturation 95.5 96.7 (95.0-98.0) % Vent Mode A/c A/c Mechanical Rate 12 14 FiO2 40.0 50.0 % Tidal Volume 450 450 PEEP 6 6 Sodium (132-148) mmol/L Potassium (3.6-5.2) mmol/L Chloride (98-107) mmol/L Carbon Dioxide (22-30) mmol/L Anion Gap (10-20) BUN (9-20) mg/dL Creatinine (0.8-1.5) MG/DL Est GFR ( Amer) Est GFR (Non-Af Amer) POC Glucose (mg/dL) 254 H (65-110) mg/dL Random Glucose (75-110) mg/dL Calcium (8.6-10.4) mg/dl Phosphorus (2.5-4.5) mg/dL Magnesium (1.6-2.3) mg/dL Total Bilirubin (0.2-1.3) mg/dL AST (17-59) U/L ALT (21-72) U/L Alkaline Phosphatase (38-126) U/L Total Protein (6.3-8.3) g/dL Albumin (3.5-5.0) g/dL Globulin (2.2-3.9) gm/dL Albumin/Globulin Ratio (1.0-2.1) Pleural Total Protein g/dL Pleural LDH U/L Pleural Glucose mg/dL 08/25/17 08/25/17 08/25/17 Range/Units 06:19 06:19 00:32 WBC 19.5 H (4.8-10.8) K/uL RBC 3.88 L (4.40-5.90) Mil/uL Hgb 8.9 L (12.0-18.0) g/dL Hct 28.9 L (35.0-51.0) % MCV 74.5 L (80.0-94.0) fL MCH 23.0 L (27.0-31.0) pg MCHC 30.9 L (33.0-37.0) g/dL RDW 22.5 H (11.5-14.5) % Plt Count 631 H (130-400) K/uL MPV 8.3 (7.2-11.7) fL Neut % (Auto) 80.2 H (50.0-75.0) % Lymph % (Auto) 8.8 L (20.0-40.0) % Horry % (Auto) 8.6 (0.0-10.0) % Eos % (Auto) 1.9 (0.0-4.0) % Baso % (Auto) 0.5 (0.0-2.0) % Neut # 15.6 H (1.8-7.0) K/uL Lymph # 1.7 (1.0-4.3) K/uL Horry # 1.7 H (0.0-0.8) K/uL Eos # 0.4 (0.0-0.7) K/uL Baso # 0.1 (0.0-0.2) K/uL Neutrophils % (Manual) 75 (50-75) % Band Neutrophils % 1 (0-2) % Lymphocytes % (Manual) 16 L (20-40) % Monocytes % (Manual) 6 (0-10) % Eosinophils % (Manual) 2 (0-4) % Platelet Estimate Increased H (NORMAL) Polychromasia Slight Hypochromasia (manual) Slight Anisocytosis (manual) Moderate Microcytosis (manual) Slight Ovalocytes Slight Puncture Site pCO2 (35-45) mm/Hg pO2 (80-100) mm/Hg HCO3 (21-28) mmol/L ABG pH (7.35-7.45) ABG Total CO2 (22-28) mmol/L ABG O2 Saturation (95-98) % ABG Base Excess (-2.0-3.0) mmol/L ABG Hemoglobin (11.7-17.4) g/dL ABG Carboxyhemoglobin (0.5-1.5) % POC ABG HHb (Measured) (0.0-5.0) % ABG Methemoglobin (0.0-3.0) % Uriel Test A-a O2 Difference mm/Hg Respiratory Index Hgb O2 Saturation (95.0-98.0) % Vent Mode Mechanical Rate FiO2 % Tidal Volume PEEP Sodium 137 (132-148) mmol/L Potassium 4.5 (3.6-5.2) mmol/L Chloride 93 L (98-107) mmol/L Carbon Dioxide 26 (22-30) mmol/L Anion Gap 23 H (10-20) BUN 62 H (9-20) mg/dL Creatinine 5.4 H (0.8-1.5) MG/DL Est GFR ( Amer) 13 Est GFR (Non-Af Amer) 10 POC Glucose (mg/dL) 303 H (65-110) mg/dL Random Glucose 294 H (75-110) mg/dL Calcium 9.0 (8.6-10.4) mg/dl Phosphorus 8.4 H (2.5-4.5) mg/dL Magnesium 2.9 H (1.6-2.3) mg/dL Total Bilirubin 0.7 (0.2-1.3) mg/dL AST 52 (17-59) U/L ALT 61 (21-72) U/L Alkaline Phosphatase 154 H (38-126) U/L Total Protein 6.9 (6.3-8.3) g/dL Albumin 3.3 L (3.5-5.0) g/dL Globulin 3.6 (2.2-3.9) gm/dL Albumin/Globulin Ratio 0.9 L (1.0-2.1) Pleural Total Protein g/dL Pleural LDH U/L Pleural Glucose mg/dL 08/24/17 08/19/17 Range/Units 17:40 18:53 WBC (4.8-10.8) K/uL RBC (4.40-5.90) Mil/uL Hgb (12.0-18.0) g/dL Hct (35.0-51.0) % MCV (80.0-94.0) fL MCH (27.0-31.0) pg MCHC (33.0-37.0) g/dL RDW (11.5-14.5) % Plt Count (130-400) K/uL MPV (7.2-11.7) fL Neut % (Auto) (50.0-75.0) % Lymph % (Auto) (20.0-40.0) % H[place] % (Auto) (0.0-10.0) % Eos % (Auto) (0.0-4.0) % Baso % (Auto) (0.0-2.0) % Neut # (1.8-7.0) K/uL Lymph # (1.0-4.3) K/uL H[place] # (0.0-0.8) K/uL Eos # (0.0-0.7) K/uL Baso # (0.0-0.2) K/uL Neutrophils % (Manual) (50-75) % Band Neutrophils % (0-2) % Lymphocytes % (Manual) (20-40) % Monocytes % (Manual) (0-10) % Eosinophils % (Manual) (0-4) % Platelet Estimate (NORMAL) Polychromasia Hypochromasia (manual) Anisocytosis (manual) Microcytosis (manual) Ovalocytes Puncture Site pCO2 (35-45) mm/Hg pO2 (80-100) mm/Hg HCO3 (21-28) mmol/L ABG pH (7.35-7.45) ABG Total CO2 (22-28) mmol/L ABG O2 Saturation (95-98) % ABG Base Excess (-2.0-3.0) mmol/L ABG Hemoglobin (11.7-17.4) g/dL ABG Carboxyhemoglobin (0.5-1.5) % POC ABG HHb (Measured) (0.0-5.0) % ABG Methemoglobin (0.0-3.0) % Uriel Test A-a O2 Difference mm/Hg Respiratory Index Hgb O2 Saturation (95.0-98.0) % Vent Mode Mechanical Rate FiO2 % Tidal Volume PEEP Sodium (132-148) mmol/L Potassium (3.6-5.2) mmol/L Chloride (98-107) mmol/L Carbon Dioxide (22-30) mmol/L Anion Gap (10-20) BUN (9-20) mg/dL Creatinine (0.8-1.5) MG/DL Est GFR ( Amer) Est GFR (Non-Af Amer) POC Glucose (mg/dL) 269 H (65-110) mg/dL Random Glucose (75-110) mg/dL Calcium (8.6-10.4) mg/dl Phosphorus (2.5-4.5) mg/dL Magnesium (1.6-2.3) mg/dL Total Bilirubin (0.2-1.3) mg/dL AST (17-59) U/L ALT (21-72) U/L Alkaline Phosphatase (38-126) U/L Total Protein (6.3-8.3) g/dL Albumin (3.5-5.0) g/dL Globulin (2.2-3.9) gm/dL Albumin/Globulin Ratio (1.0-2.1) Pleural Total Protein 3.5 g/dL Pleural LDH 267 U/L Pleural Glucose 209 mg/dL Laboratory Results - last 24 hr 08/19/17 08/24/17 08/25/17 18:53 17:40 00:32 WBC RBC Hgb Hct MCV MCH MCHC RDW Plt Count MPV Neut % (Auto) Lymph % (Auto) [place] % (Auto) Eos % (Auto) Baso % (Auto) Neut # Lymph # [place] # Eos # Baso # Neutrophils % (Manual) Band Neutrophils % Lymphocytes % (Manual) Monocytes % (Manual) Eosinophils % (Manual) Platelet Estimate Polychromasia Hypochromasia (manual) Anisocytosis (manual) Microcytosis (manual) Ovalocytes Puncture Site pCO2 pO2 HCO3 ABG pH ABG Total CO2 ABG O2 Saturation ABG Base Excess ABG Hemoglobin ABG Carboxyhemoglobin POC ABG HHb (Measured) ABG Methemoglobin Uriel Test A-a O2 Difference Respiratory Index Hgb O2 Saturation Vent Mode Mechanical Rate FiO2 Tidal Volume PEEP Sodium Potassium Chloride Carbon Dioxide Anion Gap BUN Creatinine Est GFR ( Amer) Est GFR (Non-Af Amer) POC Glucose (mg/dL) 269 H 303 H Random Glucose Calcium Phosphorus Magnesium Total Bilirubin AST ALT Alkaline Phosphatase Total Protein Albumin Globulin Albumin/Globulin Ratio Pleural Total Protein 3.5 Pleural LDH 267 Pleural Glucose 209 08/25/17 08/25/17 08/25/17 06:19 06:19 08:13 WBC 19.5 H RBC 3.88 L Hgb 8.9 L Hct 28.9 L MCV 74.5 L MCH 23.0 L MCHC 30.9 L RDW 22.5 H Plt Count 631 H MPV 8.3 Neut % (Auto) 80.2 H Lymph % (Auto) 8.8 L [place] % (Auto) 8.6 Eos % (Auto) 1.9 Baso % (Auto) 0.5 Neut # 15.6 H Lymph # 1.7 [place] # 1.7 H Eos # 0.4 Baso # 0.1 Neutrophils % (Manual) 75 Band Neutrophils % 1 Lymphocytes % (Manual) 16 L Monocytes % (Manual) 6 Eosinophils % (Manual) 2 Platelet Estimate Increased H Polychromasia Slight Hypochromasia (manual) Slight Anisocytosis (manual) Moderate Microcytosis (manual) Slight Ovalocytes Slight Puncture Site Lr pCO2 33 L pO2 102 H HCO3 23.9 ABG pH 7.44 ABG Total CO2 23.4 ABG O2 Saturation 99.7 H ABG Base Excess -1.4 ABG Hemoglobin 8.3 L ABG Carboxyhemoglobin 2.2 H POC ABG HHb (Measured) 0.3 ABG Methemoglobin 0.8 Uriel Test Unable A-a O2 Difference 213.0 Respiratory Index 2.1 Hgb O2 Saturation 96.7 Vent Mode A/c Mechanical Rate 14 FiO2 50.0 Tidal Volume 450 PEEP 6 Sodium 137 Potassium 4.5 Chloride 93 L Carbon Dioxide 26 Anion Gap 23 H BUN 62 H Creatinine 5.4 H Est GFR ( Amer) 13 Est GFR (Non-Af Amer) 10 POC Glucose (mg/dL) Random Glucose 294 H Calcium 9.0 Phosphorus 8.4 H Magnesium 2.9 H Total Bilirubin 0.7 AST 52 ALT 61 Alkaline Phosphatase 154 H Total Protein 6.9 Albumin 3.3 L Globulin 3.6 Albumin/Globulin Ratio 0.9 L Pleural Total Protein Pleural LDH Pleural Glucose 08/25/17 08/25/17 11:28 11:56 WBC RBC Hgb Hct MCV MCH MCHC RDW Plt Count MPV Neut % (Auto) Lymph % (Auto) [place] % (Auto) Eos % (Auto) Baso % (Auto) Neut # Lymph # [place] # Eos # Baso # Neutrophils % (Manual) Band Neutrophils % Lymphocytes % (Manual) Monocytes % (Manual) Eosinophils % (Manual) Platelet Estimate Polychromasia Hypochromasia (manual) Anisocytosis (manual) Microcytosis (manual) Ovalocytes Puncture Site Lr pCO2 36 pO2 82 HCO3 24.7 ABG pH 7.43 ABG Total CO2 25.0 ABG O2 Saturation 98.2 H ABG Base Excess -0.3 ABG Hemoglobin 8.9 L ABG Carboxyhemoglobin 2.2 H POC ABG HHb (Measured) 1.8 ABG Methemoglobin 0.6 Uriel Test Unable A-a O2 Difference 158.0 Respiratory Index 1.9 Hgb O2 Saturation 95.5 Vent Mode A/c Mechanical Rate 12 FiO2 40.0 Tidal Volume 450 PEEP 6 Sodium Potassium Chloride Carbon Dioxide Anion Gap BUN Creatinine Est GFR ( Amer) Est GFR (Non-Af Amer) POC Glucose (mg/dL) 254 H Random Glucose Calcium Phosphorus Magnesium Total Bilirubin AST ALT Alkaline Phosphatase Total Protein Albumin Globulin Albumin/Globulin Ratio Pleural Total Protein Pleural LDH Pleural Glucose Fingerstick Blood Sugar Results: 286 Review of Systems - Review of Systems Review of Systems: Unable to evaluate as patient is not verbal and uncooperative at the moment. Critical Care Progress Note - Nutrition Nutrition: Nutrition Category Date Time Status NPO Diet [DIET] Diets 08/21/17 Dinner Active Assessment/Plan - Assessment and Plan (Free Text) Assessment: 77 year old male admitted to ICU on 08/10 from hospital floors, patient was to get a CT scan and had respiratory distress, code gareth was called and patient was transferred to ICU and intubated. Patient is with tracheostomy S/P PEG tube POD #0 Plans for PICC line and removal of IJ access Plans for left pleural effusion drainage by IR Plan: Neuro: no acute issues - Versed 2 mg IV prn for anxiety - Ativan 1mg IVP Q2H prn Pulm: Acute respiratory failure in severe ARDS, intubated. - 08/19 CT chest showed large right pleural effusion. Right sided pigtail was placed. -08/25: Chest X-ray:Stable left pleural effusion---> IR consult for left effusion drainage - Tracheostomy in place, FIO2 decreased from 60%-50% (08/24/2017) - Duoneb 3 ml Q, held due to tachycardia CV: NSTEMI and onset of A.flutter - Plavix discontinued due to stent being placed >1 year ago. - ASA 81 mg PO daily (HELD) - Lopressor 25 mg PO BID - Crestor 10 mg PO HS -Amiodarone 200mg PO TID Heme: h/o anemia, DVT - 08/09 Lower extremities doppler negative for DVTs bilaterally - ASA 81 mg PO daily (Held) - Lovenox 30 mg SC daily (Held) Renal: ALIREZA - Continue aggressive HD (MWF) via perma cath - Sevelamer Carbonate 2,400mg PO TIDCC - Procrit 10,000 unit IV MWF Endo: DM type 2 - ISS- High dose protocol - Levemir 16 U SC Q12 GI: no acute issues Dr. Wills on board for PEG -TUBE placement * PEG tube in place : Sanchez D/C ID: severe sepsis from pneumonia - 08/19 Sputum: no growth - 08/18 Urine Cx: no growth - Cefepime 1 gm daily: Day 6 (started on 08/19) - 08/25/17: F/u repeat blood culture and sputum culture Prophylaxis DVT: Lovenox 30 mg SC daily (held) GI: pepcid 20 mg PO daily, Lactobacillus 1 cap PO BID Acetaminophen 650 mg PO prn Sanchez for strict I/O's during acute illness Code status - full code <Diaz Streeter - Last Filed: 08/26/17 08:26> CCU Objective - Vital Signs / Intake & Output Vital Signs (Last 4 hours): Vital Signs Pulse Resp BP Pulse Ox 08/26/17 06:07 96 H 33 H 144/50 L 96 08/26/17 06:00 101 H 97 08/26/17 05:07 91 H 12 135/51 L 96 08/26/17 05:00 87 15 96 Intake and Output (Last 8hrs): Intake & Output 08/25/17 08/26/17 08/26/17 22:59 06:59 14:59 Intake Total 366.9 133.6 Balance 366.9 133.6 Intake: IV 50 Intake, IV Amount 316.9 133.6 Left Hand 266.8 133.6 Right Proximal Port 50.1 Tube Feeding 0 0 Other: # Voids Urine, Voided 0 # Bowel Movements 0 0 - Medications Active Medications: Active Medications Generic Name Dose Route Start Last Admin Trade Name Freq PRN Reason Stop Dose Admin Acetaminophen 650 mg 08/11/17 17:40 08/19/17 12:11 Tylenol 650mg/20.3ml Solution Ud PO 650 mg Q6 PRN Administration Temperature Albuterol/Ipratropium 3 ml 08/18/17 12:00 08/22/17 11:27 Duoneb 3 Mg/0.5 Mg (3 Ml) Ud INH 3 ml RQ4 LUIS FERNANDO Administration Amiodarone HCl 200 mg 08/26/17 10:00 Cordarone PO TID LUIS FERNANDO Aspirin 81 mg 08/14/17 11:15 08/22/17 10:09 Aspirin Chewable PO Not Given DAILY [facility] Calcium Acetate 667 mg 08/25/17 10:00 08/25/17 17:51 Phoslo GT Not Given TID LUIS FERNANDO Enoxaparin Sodium 30 mg 08/17/17 10:00 08/22/17 10:00 Lovenox SC Not Given DAILY [facility] Epoetin Chencho 10,000 unit 08/17/17 14:00 08/24/17 09:49 Procrit IV 10,000 unit MWF LUIS FERNANDO Administration Famotidine 20 mg 08/09/17 10:00 08/25/17 10:00 Pepcid PO Not Given DAILY [facility] Cefepime HCl 1 gm/ Dextrose 50 mls @ 100 mls/hr 08/19/17 12:00 08/25/17 12:51 IVPB 100 mls/hr Q24H LUIS FERNANDO Administration Midazolam HCl 100 mg/ Sodium 100 mls @ 1.67 mls/hr 08/23/17 16:00 08/25/17 16 :00 Chloride IV Not Given .Q24H [facility] Protocol 0.02 MG/KG/HR Insulin Aspart 0 unit 08/23/17 13:34 08/26/17 06:55 Novolog SC Not Given Q6 [facility] Protocol Insulin Detemir 16 unit 08/20/17 08:18 08/25/17 21:22 Levemir SC 16 unit Q12H LUIS FERNANDO Administration Lactobacillus Acidophilus 1 cap 08/13/17 18:00 08/25/17 17:32 Bacid Acidophilus PO 1 cap BID LUIS FERNANDO Administration Lorazepam 1 mg 08/23/17 10:28 08/23/17 13:50 Ativan IVP 1 mg Q2H PRN Administration Anxiety Metoprolol Tartrate 50 mg 08/22/17 09:09 08/25/17 17:32 Lopressor PO 50 mg BID LUIS FERNANDO Administration Rosuvastatin Calcium 10 mg 08/06/17 22:00 08/25/17 21:23 Crestor PO 10 mg HS LUIS FERNANDO Administration - Patient Studies Lab Studies: Microbiology Studies 08/25/17 11:13 Gram Stain - Final Sputum Lab Studies 08/26/17 08/26/17 08/26/17 Range/Units 06:24 06:24 06:24 WBC 20.8 H (4.8-10.8) K/uL RBC 3.98 L (4.40-5.90) Mil/uL Hgb 9.3 L (12.0-18.0) g/dL Hct 29.8 L (35.0-51.0) % MCV 74.7 L (80.0-94.0) fL MCH 23.4 L (27.0-31.0) pg MCHC 31.3 L (33.0-37.0) g/dL RDW 22.3 H (11.5-14.5) % Plt Count 631 H (130-400) K/uL MPV 8.3 (7.2-11.7) fL Neut % (Auto) 85.7 H (50.0-75.0) % Lymph % (Auto) 5.4 L (20.0-40.0) % [place] % (Auto) 6.2 (0.0-10.0) % Eos % (Auto) 1.6 (0.0-4.0) % Baso % (Auto) 1.1 (0.0-2.0) % Neut # 17.8 H (1.8-7.0) K/uL Lymph # 1.1 (1.0-4.3) K/uL [place] # 1.3 H (0.0-0.8) K/uL Eos # 0.3 (0.0-0.7) K/uL Baso # 0.2 (0.0-0.2) K/uL Neutrophils % (Manual) 85 H (50-75) % Band Neutrophils % 2 (0-2) % Lymphocytes % (Manual) 8 L (20-40) % Monocytes % (Manual) 5 (0-10) % Platelet Estimate Increased H (NORMAL) Hypochromasia (manual) Slight Anisocytosis (manual) Moderate Ovalocytes Slight Puncture Site pCO2 (35-45) mm/Hg pO2 (80-100) mm/Hg HCO3 (21-28) mmol/L ABG pH (7.35-7.45) ABG Total CO2 (22-28) mmol/L ABG O2 Saturation (95-98) % ABG Base Excess (-2.0-3.0) mmol/L ABG Hemoglobin (11.7-17.4) g/dL ABG Carboxyhemoglobin (0.5-1.5) % POC ABG HHb (Measured) (0.0-5.0) % ABG Methemoglobin (0.0-3.0) % Uriel Test A-a O2 Difference mm/Hg Respiratory Index Hgb O2 Saturation (95.0-98.0) % Vent Mode Mechanical Rate FiO2 % Tidal Volume PEEP Sodium 135 (132-148) mmol/L Potassium 4.9 (3.6-5.2) mmol/L Chloride 94 L (98-107) mmol/L Carbon Dioxide 21 L (22-30) mmol/L Anion Gap 25 H (10-20) BUN 89 H (9-20) mg/dL Creatinine 7.3 H D (0.8-1.5) MG/DL Est GFR ( Amer) 9 Est GFR (Non-Af Amer) 7 POC Glucose (mg/dL) (65-110) mg/dL Random Glucose 209 H (75-110) mg/dL Calcium 9.1 (8.6-10.4) mg/dl Phosphorus 10.6 H (2.5-4.5) mg/dL Magnesium 3.2 H (1.6-2.3) mg/dL Total Bilirubin 0.8 (0.2-1.3) mg/dL AST 59 (17-59) U/L ALT 51 (21-72) U/L Alkaline Phosphatase 152 H (38-126) U/L Total Protein 7.0 (6.3-8.3) g/dL Albumin 3.4 L (3.5-5.0) g/dL Globulin 3.6 (2.2-3.9) gm/dL Albumin/Globulin Ratio 0.9 L (1.0-2.1) Random Vancomycin 19.28 ug/mL 08/26/17 08/25/17 08/25/17 Range/Units 05:20 23:42 18:23 WBC (4.8-10.8) K/uL RBC (4.40-5.90) Mil/uL Hgb (12.0-18.0) g/dL Hct (35.0-51.0) % MCV (80.0-94.0) fL MCH (27.0-31.0) pg MCHC (33.0-37.0) g/dL RDW (11.5-14.5) % Plt Count (130-400) K/uL MPV (7.2-11.7) fL Neut % (Auto) (50.0-75.0) % Lymph % (Auto) (20.0-40.0) % Horry % (Auto) (0.0-10.0) % Eos % (Auto) (0.0-4.0) % Baso % (Auto) (0.0-2.0) % Neut # (1.8-7.0) K/uL Lymph # (1.0-4.3) K/uL Horry # (0.0-0.8) K/uL Eos # (0.0-0.7) K/uL Baso # (0.0-0.2) K/uL Neutrophils % (Manual) (50-75) % Band Neutrophils % (0-2) % Lymphocytes % (Manual) (20-40) % Monocytes % (Manual) (0-10) % Platelet Estimate (NORMAL) Hypochromasia (manual) Anisocytosis (manual) Ovalocytes Puncture Site Rr pCO2 35 (35-45) mm/Hg pO2 72 L (80-100) mm/Hg HCO3 23.2 (21-28) mmol/L ABG pH 7.41 (7.35-7.45) ABG Total CO2 23.3 (22-28) mmol/L ABG O2 Saturation 96.1 (95-98) % ABG Base Excess -2.1 L (-2.0-3.0) mmol/L ABG Hemoglobin 9.7 L (11.7-17.4) g/dL ABG Carboxyhemoglobin 2.5 H (0.5-1.5) % POC ABG HHb (Measured) 3.8 (0.0-5.0) % ABG Methemoglobin 1.1 (0.0-3.0) % Uriel Test Pos A-a O2 Difference 169.0 mm/Hg Respiratory Index 2.3 Hgb O2 Saturation 92.6 L (95.0-98.0) % Vent Mode Prvc Mechanical Rate 12 FiO2 40.0 % Tidal Volume 450 PEEP 6 Sodium (132-148) mmol/L Potassium (3.6-5.2) mmol/L Chloride (98-107) mmol/L Carbon Dioxide (22-30) mmol/L Anion Gap (10-20) BUN (9-20) mg/dL Creatinine (0.8-1.5) MG/DL Est GFR ( Amer) Est GFR (Non-Af Amer) POC Glucose (mg/dL) 260 H 254 H (65-110) mg/dL Random Glucose (75-110) mg/dL Calcium (8.6-10.4) mg/dl Phosphorus (2.5-4.5) mg/dL Magnesium (1.6-2.3) mg/dL Total Bilirubin (0.2-1.3) mg/dL AST (17-59) U/L ALT (21-72) U/L Alkaline Phosphatase (38-126) U/L Total Protein (6.3-8.3) g/dL Albumin (3.5-5.0) g/dL Globulin (2.2-3.9) gm/dL Albumin/Globulin Ratio (1.0-2.1) Random Vancomycin ug/mL 08/25/17 08/25/17 Range/Units 11:56 11:28 WBC (4.8-10.8) K/uL RBC (4.40-5.90) Mil/uL Hgb (12.0-18.0) g/dL Hct (35.0-51.0) % MCV (80.0-94.0) fL MCH (27.0-31.0) pg MCHC (33.0-37.0) g/dL RDW (11.5-14.5) % Plt Count (130-400) K/uL MPV (7.2-11.7) fL Neut % (Auto) (50.0-75.0) % Lymph % (Auto) (20.0-40.0) % [place] % (Auto) (0.0-10.0) % Eos % (Auto) (0.0-4.0) % Baso % (Auto) (0.0-2.0) % Neut # (1.8-7.0) K/uL Lymph # (1.0-4.3) K/uL Horry # (0.0-0.8) K/uL Eos # (0.0-0.7) K/uL Baso # (0.0-0.2) K/uL Neutrophils % (Manual) (50-75) % Band Neutrophils % (0-2) % Lymphocytes % (Manual) (20-40) % Monocytes % (Manual) (0-10) % Platelet Estimate (NORMAL) Hypochromasia (manual) Anisocytosis (manual) Ovalocytes Puncture Site Lr pCO2 36 (35-45) mm/Hg pO2 82 (80-100) mm/Hg HCO3 24.7 (21-28) mmol/L ABG pH 7.43 (7.35-7.45) ABG Total CO2 25.0 (22-28) mmol/L ABG O2 Saturation 98.2 H (95-98) % ABG Base Excess -0.3 (-2.0-3.0) mmol/L ABG Hemoglobin 8.9 L (11.7-17.4) g/dL ABG Carboxyhemoglobin 2.2 H (0.5-1.5) % POC ABG HHb (Measured) 1.8 (0.0-5.0) % ABG Methemoglobin 0.6 (0.0-3.0) % Uriel Test Unable A-a O2 Difference 158.0 mm/Hg Respiratory Index 1.9 Hgb O2 Saturation 95.5 (95.0-98.0) % Vent Mode A/c Mechanical Rate 12 FiO2 40.0 % Tidal Volume 450 PEEP 6 Sodium (132-148) mmol/L Potassium (3.6-5.2) mmol/L Chloride (98-107) mmol/L Carbon Dioxide (22-30) mmol/L Anion Gap (10-20) BUN (9-20) mg/dL Creatinine (0.8-1.5) MG/DL Est GFR ( Amer) Est GFR (Non-Af Amer) POC Glucose (mg/dL) 254 H (65-110) mg/dL Random Glucose (75-110) mg/dL Calcium (8.6-10.4) mg/dl Phosphorus (2.5-4.5) mg/dL Magnesium (1.6-2.3) mg/dL Total Bilirubin (0.2-1.3) mg/dL AST (17-59) U/L ALT (21-72) U/L Alkaline Phosphatase (38-126) U/L Total Protein (6.3-8.3) g/dL Albumin (3.5-5.0) g/dL Globulin (2.2-3.9) gm/dL Albumin/Globulin Ratio (1.0-2.1) Random Vancomycin ug/mL Laboratory Results - last 24 hr 08/25/17 08/25/17 08/25/17 11:28 11:56 18:23 WBC RBC Hgb Hct MCV MCH MCHC RDW Plt Count MPV Neut % (Auto) Lymph % (Auto) [place] % (Auto) Eos % (Auto) Baso % (Auto) Neut # Lymph # [place] # Eos # Baso # Neutrophils % (Manual) Band Neutrophils % Lymphocytes % (Manual) Monocytes % (Manual) Platelet Estimate Hypochromasia (manual) Anisocytosis (manual) Ovalocytes Puncture Site Lr pCO2 36 pO2 82 HCO3 24.7 ABG pH 7.43 ABG Total CO2 25.0 ABG O2 Saturation 98.2 H ABG Base Excess -0.3 ABG Hemoglobin 8.9 L ABG Carboxyhemoglobin 2.2 H POC ABG HHb (Measured) 1.8 ABG Methemoglobin 0.6 Uriel Test Unable A-a O2 Difference 158.0 Respiratory Index 1.9 Hgb O2 Saturation 95.5 Vent Mode A/c Mechanical Rate 12 FiO2 40.0 Tidal Volume 450 PEEP 6 Sodium Potassium Chloride Carbon Dioxide Anion Gap BUN Creatinine Est GFR ( Amer) Est GFR (Non-Af Amer) POC Glucose (mg/dL) 254 H 254 H Random Glucose Calcium Phosphorus Magnesium Total Bilirubin AST ALT Alkaline Phosphatase Total Protein Albumin Globulin Albumin/Globulin Ratio Random Vancomycin 08/25/17 08/26/17 08/26/17 23:42 05:20 06:24 WBC 20.8 H RBC 3.98 L Hgb 9.3 L Hct 29.8 L MCV 74.7 L MCH 23.4 L MCHC 31.3 L RDW 22.3 H Plt Count 631 H MPV 8.3 Neut % (Auto) 85.7 H Lymph % (Auto) 5.4 L H[place] % (Auto) 6.2 Eos % (Auto) 1.6 Baso % (Auto) 1.1 Neut # 17.8 H Lymph # 1.1 [place] # 1.3 H Eos # 0.3 Baso # 0.2 Neutrophils % (Manual) 85 H Band Neutrophils % 2 Lymphocytes % (Manual) 8 L Monocytes % (Manual) 5 Platelet Estimate Increased H Hypochromasia (manual) Slight Anisocytosis (manual) Moderate Ovalocytes Slight Puncture Site Rr pCO2 35 pO2 72 L HCO3 23.2 ABG pH 7.41 ABG Total CO2 23.3 ABG O2 Saturation 96.1 ABG Base Excess -2.1 L ABG Hemoglobin 9.7 L ABG Carboxyhemoglobin 2.5 H POC ABG HHb (Measured) 3.8 ABG Methemoglobin 1.1 Uriel Test Pos A-a O2 Difference 169.0 Respiratory Index 2.3 Hgb O2 Saturation 92.6 L Vent Mode Prvc Mechanical Rate 12 FiO2 40.0 Tidal Volume 450 PEEP 6 Sodium Potassium Chloride Carbon Dioxide Anion Gap BUN Creatinine Est GFR ( Amer) Est GFR (Non-Af Amer) POC Glucose (mg/dL) 260 H Random Glucose Calcium Phosphorus Magnesium Total Bilirubin AST ALT Alkaline Phosphatase Total Protein Albumin Globulin Albumin/Globulin Ratio Random Vancomycin 08/26/17 08/26/17 06:24 06:24 WBC RBC Hgb Hct MCV MCH MCHC RDW Plt Count MPV Neut % (Auto) Lymph % (Auto) [place] % (Auto) Eos % (Auto) Baso % (Auto) Neut # Lymph # [place] # Eos # Baso # Neutrophils % (Manual) Band Neutrophils % Lymphocytes % (Manual) Monocytes % (Manual) Platelet Estimate Hypochromasia (manual) Anisocytosis (manual) Ovalocytes Puncture Site pCO2 pO2 HCO3 ABG pH ABG Total CO2 ABG O2 Saturation ABG Base Excess ABG Hemoglobin ABG Carboxyhemoglobin POC ABG HHb (Measured) ABG Methemoglobin Uriel Test A-a O2 Difference Respiratory Index Hgb O2 Saturation Vent Mode Mechanical Rate FiO2 Tidal Volume PEEP Sodium 135 Potassium 4.9 Chloride 94 L Carbon Dioxide 21 L Anion Gap 25 H BUN 89 H Creatinine 7.3 H D Est GFR ( Amer) 9 Est GFR (Non-Af Amer) 7 POC Glucose (mg/dL) Random Glucose 209 H Calcium 9.1 Phosphorus 10.6 H Magnesium 3.2 H Total Bilirubin 0.8 AST 59 ALT 51 Alkaline Phosphatase 152 H Total Protein 7.0 Albumin 3.4 L Globulin 3.6 Albumin/Globulin Ratio 0.9 L Random Vancomycin 19.28 Critical Care Progress Note - Nutrition Nutrition: Nutrition Category Date Time Status NPO Diet [DIET] Diets 08/21/17 Dinner Active Assessment/Plan (1) ARDS (adult respiratory distress syndrome) Current Visit: Yes Status: Acute Attending/Attestation - Attestation I have personally seen and examined this patient.: Yes I have fully participated in the care of the patient.: Yes I have reviewed all pertinent clinical information: Yes Notes (Text): 08/26/17 08:25 I have seen and examined the patient. Medical records, lab studies, and imaging were reviewed by me and a management plan was formulated on multidisciplinary rounds with resident Dr. Oliver. I agree with their above documented assessment and plan. Patient underwent PEG placement. stopped all sedation. removed right pigtail chest tube, no further drainage. Will drain left lung today. Oxygen and vent requirements decreasing. On regular dialysis schedule now. patient will need LTAC placement. Critical Care Time 35 minutes. Multi-disciplinary rounds were performed with house staff, nursing, speech therapy, respiratory therapy, pharmacy and nutrition with integrated input from the primary team/attending and other consulting services. The documented time is cumulative and includes review of patient data/exams/labs/chart review and examination of the patient on rounds and throughout the day; time is exclusive of any procedures or teaching time.
--- NOTE | 2017-08-25 20:14 | CP.PCM.PN ---
Subjective - Date & Time of Evaluation Date of Evaluation: 08/25/17 Time of Evaluation: 04:00 - Subjective Subjective: dictated Objective - Vital Signs/Intake and Output Vital Signs (last 24 hours): Temp Pulse Resp BP Pulse Ox 98.9 F 89 27 H 130/55 L 99 08/25/17 16:00 08/25/17 18:17 08/25/17 18:17 08/25/17 18:17 08/25/17 18:17 Intake and Output: 08/25/17 08/26/17 18:59 06:59 Intake Total 276.9 Balance 276.9 - Medications Medications: Current Medications Acetaminophen (Tylenol 650mg/20.3ml Solution Ud) 650 mg PO Q6 PRN PRN Reason: Temperature Last Admin: 08/19/17 12:11 Dose: 650 mg Albuterol/Ipratropium (Duoneb 3 Mg/0.5 Mg (3 Ml) Ud) 3 ml INH RQ4 [facility] Last Admin: 08/22/17 11:27 Dose: 3 ml Amiodarone HCl (Cordarone) 200 mg PO TID LUIS FERNANDO Aspirin (Aspirin Chewable) 81 mg PO DAILY [facility] Last Admin: 08/22/17 10:09 Dose: Not Given Calcium Acetate (Phoslo) 667 mg GT TID [facility] Last Admin: 08/25/17 17:51 Dose: Not Given Enoxaparin Sodium (Lovenox) 30 mg SC DAILY [facility] Last Admin: 08/22/17 10:00 Dose: Not Given Epoetin Chencho (Procrit) 10,000 unit IV MWF [facility] Last Admin: 08/24/17 09:49 Dose: 10,000 unit Famotidine (Pepcid) 20 mg PO DAILY [facility] Last Admin: 08/25/17 10:00 Dose: Not Given Cefepime HCl 1 gm/ Dextrose 50 mls @ 100 mls/hr IVPB Q24H [facility] FERNAND[facility] Last Admin: 08/25/17 12:51 Dose: 100 mls/hr Midazolam HCl 100 mg/ Sodium (Chloride) 100 mls @ 1.67 mls/hr IV .Q24H LUIS FERNANDO; 0.02 MG/KG/HR PRN Reason: Protocol Last Admin: 08/25/17 16:00 Dose: Not Given Insulin Aspart (Novolog) 0 unit SC Q6 LUIS FERNANDO PRN Reason: Protocol Last Admin: 08/25/17 18:00 Dose: Not Given Insulin Detemir (Levemir) 16 unit SC Q12H [facility] Last Admin: 08/25/17 08:45 Dose: 16 unit Lactobacillus Acidophilus (Bacid Acidophilus) 1 cap PO BID [facility] FERNANDO Last Admin: 08/25/17 17:32 Dose: 1 cap Lorazepam (Ativan) 1 mg IVP Q2H PRN PRN Reason: Anxiety Last Admin: 08/23/17 13:50 Dose: 1 mg Metoprolol Tartrate (Lopressor) 50 mg PO BID [facility] Last Admin: 08/25/17 17:32 Dose: 50 mg Rosuvastatin Calcium (Crestor) 10 mg PO HS [facility] Last Admin: 08/24/17 21:26 Dose: 10 mg - Labs Labs: 08/25/17 06:19 08/25/17 06:19 PT 13.9 SECONDS (9.7-12.2) H 08/24/17 06:08 INR 1.2 08/24/17 06:08 APTT 55 SECONDS (21-34) H D 08/17/17 06:12
[2017-08-25] MEDS ORDERED: Vancomycin 1 gm/NS 200 ml 1 GM/200 ML BAG IVPB STA (20:17)
--- NOTE | 2017-08-25 21:35 | CP.PCM.PN ---
Subjective - Date & Time of Evaluation Date of Evaluation: 08/25/17 Time of Evaluation: 07:50 - Subjective Subjective: Patient seen and evaluated S/P tracheostomy For PEG today Physical Examination - Constitutional Appears: Non-toxic, Chronically Ill, Other (central obesity) - Head Exam Head Exam: ATRAUMATIC, NORMOCEPHALIC - Eye Exam Eye Exam: EOMI, Normal appearance - ENT Exam ENT Exam: Mucous Membranes Moist Additional comments: trach collar in place - Respiratory Exam Respiratory Exam: NORMAL BREATHING PATTERN - Cardiovascular Exam Cardiovascular Exam: +S1, +S2 - GI/Abdominal Exam GI & Abdominal Exam: Soft, Normal Bowel Sounds - Extremities Exam Extremities Exam: Full ROM - Back Exam Back Exam: Full ROM - Neurological Exam Neurological Exam: absent: Alert, Awake - Skin Skin Exam: Dry, Warm Objective - Vital Signs/Intake and Output Vital Signs (last 24 hours): Temp Pulse Resp BP Pulse Ox 97.4 F L 81 20 117/47 L 98 08/25/17 20:00 08/25/17 20:07 08/25/17 20:07 08/25/17 20:07 08/25/17 20:07 Intake and Output: 08/25/17 08/26/17 18:59 06:59 Intake Total 276.9 33.4 Balance 276.9 33.4 - Medications Medications: Current Medications Acetaminophen (Tylenol 650mg/20.3ml Solution Ud) 650 mg PO Q6 PRN PRN Reason: Temperature Last Admin: 08/19/17 12:11 Dose: 650 mg Albuterol/Ipratropium (Duoneb 3 Mg/0.5 Mg (3 Ml) Ud) 3 ml INH RQ4 [facility] Last Admin: 08/22/17 11:27 Dose: 3 ml Amiodarone HCl (Cordarone) 200 mg PO TID [facility] Aspirin (Aspirin Chewable) 81 mg PO DAILY [facility] Last Admin: 08/22/17 10:09 Dose: Not Given Calcium Acetate (Phoslo) 667 mg GT TID [facility] Last Admin: 08/25/17 17:51 Dose: Not Given Enoxaparin Sodium (Lovenox) 30 mg SC DAILY [facility] Last Admin: 08/22/17 10:00 Dose: Not Given Epoetin Chencho (Procrit) 10,000 unit IV MWF [facility] Last Admin: 08/24/17 09:49 Dose: 10,000 unit Famotidine (Pepcid) 20 mg PO DAILY [facility] Last Admin: 08/25/17 10:00 Dose: Not Given Cefepime HCl 1 gm/ Dextrose 50 mls @ 100 mls/hr IVPB Q24H [facility]ERNA[facility] Last Admin: 08/25/17 12:51 Dose: 100 mls/hr Midazolam HCl 100 mg/ Sodium (Chloride) 100 mls @ 1.67 mls/hr IV .Q24H [facility]IS FERNANDO; 0.02 MG/KG/HR PRN Reason: Protocol Last Admin: 08/25/17 16:00 Dose: Not Given Vancomycin/Sodium Chloride (Vancocin) 1 gm in 200 mls @ 133.333 mls/hr IVPB STAT STA Stop: 08/25/17 21:46 Insulin Aspart (Novolog) 0 unit SC Q6 LUIS FERNANDO PRN Reason: Protocol Last Admin: 08/25/17 18:00 Dose: Not Given Insulin Detemir (Levemir) 16 unit SC Q12H [facility]NA[facility] Last Admin: 08/25/17 21:22 Dose: 16 unit Lactobacillus Acidophilus (Bacid Acidophilus) 1 cap PO BID [facility] Last Admin: 08/25/17 17:32 Dose: 1 cap Lorazepam (Ativan) 1 mg IVP Q2H PRN PRN Reason: Anxiety Last Admin: 08/23/17 13:50 Dose: 1 mg Metoprolol Tartrate (Lopressor) 50 mg PO BID [facility] Last Admin: 08/25/17 17:32 Dose: 50 mg Rosuvastatin Calcium (Crestor) 10 mg PO HS [facility] Last Admin: 08/25/17 21:23 Dose: 10 mg - Labs Labs: 08/25/17 06:19 08/25/17 06:19 PT 13.9 SECONDS (9.7-12.2) H 08/24/17 06:08 INR 1.2 08/24/17 06:08 APTT 55 SECONDS (21-34) H D 08/17/17 06:12 Assessment and Plan - Assessment and Plan (Free Text) Assessment: (1) Acute Respiratory Failure ARDS Cardiac Arrest Pulmonary Edema Nonstemi Assessment and Plan: * Code Blue on 08/10: asystole, cardiopulmonary resuscitative measures initiated , requiring 3 epis, bicarbonate, ROSC achieved and intubated and brought to the ICU for further management; Patient in the ICU from 08/10 until present. * Pulmonary: Dr Mena (Dr. Jeffers covering until 09/04/17)-->help appreciated * GI (Dr. Wills) on board-->help appreciated * S/P Tracheostomy 08/22 * S/P Peg tube placement 08/25 * s/p insertion of right posterior chest tube 08/19-->removed 08/24/17 * There was consideration for possible thoracentesis of left side pleural effusion, evaluated by IR, there is no fluid to drain per Dr. Gross * Chest xray (08/26): right arm PICC is seen with the tip of distal subclavian vein. PICC may be used, * Restart Aspirin 81mg PO daily * Patient does not need Plavix at this time * Recommend for Eliquis 2.5mg PO BID for atrial flutter * 08/27: patient is pending LTAC, he went eventually need cardiac catherization when he has stabilized. Held statin secondary to elevated LFTs. Discussed with Dr. Cortés, lowered Amiodarone 200mg PO daily (2) Abnormal Stress Test History of AICD History of Coronary Artery Disease Assessment and Plan: * TSH: 1.16; T4: 1.53 * Echocardiogram (08/08/17): left ventricle systolic function is severely impaired. EF: 25-30%; global hypokinesis of left ventricle mild aortic regurgitation. Mitral regurgitation is moderate. Moderate-severe pulmonary hypertension * Plan was for cardiac catheterization; delayed due to acute renal failure; Attempted gentle hydration and mucomyst on 08/09 to optimize prior to cath * On 08/10, patient was in asystole, ACLS protocol, ROSC achieved, intubated and transfered to the ICU. Patient in acute pulmonary edema. * Patient hospitalized in the ICU since 08/10/17 to present. * Medications: * Aspirin 81mg PO daily * Plavix d/c by cardiology * Lopressor 50mg PO bid * d/c Crestor 10mg POqHS secondary to rise in LFTS 08/27--->monitor LFTs daily * ARB d/c secondary to acute renal failure * 08/27: patient is pending LTAC, he went eventually need cardiac catherization when he has stabilized. Held statin secondary to elevated LFTs. Discussed with Dr. Cortés, lowered Amiodarone 200mg PO daily (3) Atrial flutter Assessment and Plan: * Refractory to Lopressor/Cardizem IVP * Eliquis 2.5mg PO bid * Amiodarone bolus-->Amiodarine drip on 08/24-->converted to Amiodarone 200mg PO TID on 08/26 will lower Amiodarone 200mg PO daily and monitor LFTs. Statin held and tylenol d/c Status: Acute (4) Acute on Chronic Systolic CHF exacerbation Assessment and Plan: * Transferred to the ICU on 08/10 following cardiac arrest and intubation. * Echocardiogram (08/08/17): left ventricular systolic function is severely impaired. EF: 25-30%; global hypokinesis of left ventricle mild aortic regurgitation. Mitral regurgitation is moderate. Moderate-severe pulmonary hypertension * Medications: * Aspirin 81mg PO daily * Plavix d/c by cardiology * Lopressor 50mg PO bid * d/c Crestor 10mg POqHS on 08/27 secondary to rise in LFTs * ARB d/c secondary to acute renal failure Status: Acute (5) Leukocytosis Assessment and Plan: * Patient's white count rising * Procalcitonin elevated * Blood cultures (08/26): no growth After 24hours X2 * UA and urine culture (08/27): pending * Patient has elevated LFTs-->did not start anti-fungal in light of LFTs Status: Acute (6) Pneumonia Assessment and Plan: * Pulmonary (Dr. Mena) on board-->help appreciated; Dr. Jeffers covering while Dr. Mena away * Infectious Disease (Dr. Lawrence)-->help appreciated * Chest xray (08/26): right arm PICC is seen with the tip of distal subclavian vein. PICC may be used * Rapid A strep, Influenza A and B studies, Urine Legionella, Mycoplasma studies = Negative * Florastor 250mg PO bid * 08/07/17: +Strep Pneumoniae in the urine * Meropenem 500mg IV Q 8 hours (08/14/17 through 08/18/17) and Zosyn 2.25 mg IV Q6H (08/13/17 through 08/18/17) * Cefepime 1 gm IV Q24H (08/19/17)-->DAY 8 * s/p right posterior chest tube 08/19-08/24 * Sputum Culture 08/19/17 shows No growth * Pleural fluid 08/19/17: No growth Status: Acute (7) HTN (hypertension) Assessment and Plan: * Lopressor 50mg PO bid Status: Chronic (8) CKD (chronic kidney disease) on Dialysis Assessment and Plan: * Dr. Miranda (nephrology) consulted on the case * Hx of CKD-->Started on dialysis 08/15/17 * Kurtis catheter placed and removed 08/22 * s/p Permcath 08/22 * Patient is on dialysis; oliguric * Phoslo 1334mg GT TID * Epoetin 10,000 unit IV MWF Status: Acute (9) Diabetes mellitus Assessment and Plan: * Accuchecks Q6H * HgbA1c 8.4 * Levemir 16 units subq12 * Start peg feedings on 08/26/17 * Nepro-->20 ml/hr w goal: 50 ml/h (10) HLD (hyperlipidemia) Assessment and Plan: * 08/27: held Crestor 10 mg PO HS secondary to rise in LFTs Status: Chronic (11) Anemia Assessment and Plan: * Heme-oncology (Dr. Giles bender) on board-->help appreciated * Likely iron deficiency anemia based on prior admissions * Ferritin 27.4, Iron 22, TIBC 322, % Saturation 7 * Ferric Sodium Gluconate 125mg IVPB daily (active 08/08-08/16) * Procrit 10,000 units M-W- * Monitor Hgb/Hct: stable Status: Chronic (12) History of DVT (deep vein thrombosis) Assessment and Plan: * Patient was previously on Eliquis for a prior history of DVT. * Repeat dopplers 08/09/17 are negative for DVT * Off Heparin Drip 08/17/17 * Start Eliquis 2.5mg PO BID for atrial flutter and history of DVT Status: Chronic (13) UTI Assessment and Plan: * Infectious disease (Dr. Lawrence) on board-->help appreciated * Exchange jaquez out and repeat urine cultures * Urine Culture 08/12/17 showed Gram Negative Rods: NO identification and NO sensitivities were performed * Meropenem 500mg IV Q 12hours (active since 08/14/17 through 08/18/17) to cover for UTI per ID * Repeat Urine Culture 08/18/17 shows NO growth * 08/25: reculture in light of leukocytosis * 08/27: pending urine studies Status: Chronic (14) Confusion; Alzheimer's Dementia Assessment and Plan: * Per daughter, patient has been getting bouts of confusion over the past year but appears at baseline. Patient has not seen formal neurology as outpatient per daughter. Per , prior to event, noted Alzheimers' disease dx one year ago * CT head w/o contrast (08/10/17):acute os subacute lacune infarct is not excluded in the left basal ganglia inferiorly with definitive chronic lacune identified in the right basal ganglia superiorly. No acute or subacute lobar brain infarction is appreciable by standard CT criteria. Mild age-related neuro degenerative changes are identifed. No acute intracranial hemorrhage or mass is identified throughout * 08/26: Off Sedation-->patient moves all extremities randomly but does not follow directions * 08/27: off sedation-->patient is very calm, smiles at his Status: Chronic (15) Unstageable sacral ulcer Assessment and Plan: * Wound care on board * WOUND CARE NOTE (08/26)-->Pt with a sacral unstageable being treated with medihoney. No changes to dimensions at this time. Also, pt favoring Left side of head and has developed a 1x1 serous filled blister on his left ear. Primary nurse placed duoderm on the ear. Wound care nurse left duoderm in place , and recommends leaving it on until it falls off on its own. Pt has been NPO for several days, new peg inserted yesterday. Will be starting glucerna tube feedings later today. Albumin 3.3 * Turn q 2 hours * medihoney Status: Acute (16) Elevated LFTs Assessment and Plan: * 08/27: Yina * Discussed with cardiology-->changed amiodarone 200mg PO tid to amiodaron 200mg PO daily * D/C tylenol * Held Statin * patient is also on Rocephin to cover for pneumonia * Will not start antifungal * Will need daily LFTs Status: Acute (17) Prophylactic measure Assessment and Plan: * Pepcid 20mg PO daily * Start Eliquis 2.5mg PO BID * s/p peg placement 08/25 * s/p trachesostomy 08/22 * s/p Permcath placement 08/22 removal Kurtis catheter * s/p right posterior chest tube 08/19-->removed 08/24 * s/p PICC 08/26 * (Jovita Serrano): -->number provided to the nurse- ->consented for peg placement; discussed about LTAC 08/26 * Spoke with Dr. Pickard, PMD regarding patient's hospitalization up until this point 08/26 Disposition: * Patient restarted on Aspirin and Eliquis. * Patient has no drainage for IR to place pigtail for left pleural effusion * Patient's white count uptrending-->f/u repeat cultures (08/26) * Patient is for LTAC; discussed with case management who will speak with the -->pending approval * s/p PICC line by IR * Monitor daily LFTs-->changed amiodarone, d/c tylenol, held statin on 08/27--> continue to monitor
--- NOTE | 2017-08-25 23:40 | PN ---
DATE: 08/25/2017 SUBJECTIVE: Patient was seen today. He remains with lot of tubes, now . He received amiodarone drip yesterday. plan for PEG placement was there and he remained on the Trach ventilator. He is being oliguric. He remains drowsy. Trach is present and then he has a right sided hemodialysis catheter. PHYSICAL EXAMINATION LUNGS: Had been cleared otherwise. Decreased breath sounds. HEART: S1 and S2 is regular. ABDOMEN: Soft and nontender. EXTREMITIES: Had Venodyne boots on. He was waiting for the PEG placement and they had all the set up ready. LABORATORY DATA: Noted. Show white count is 19.5 today, hemoglobin 8.9, hematocrit 28.9 and platelet count is 631, so, his white count is increasing. His BUN is 62, creatinine is 5.4. He remains anuric. He does have many lines present. Micro cultures, all cultures, sputum, blood and body fluids have been negative. He does have a chest tube also on the right side and chest x-ray showed no significant change, stable multifocal infiltrates. MEDICATIONS: He is on Tylenol, DuoNeb, he got amiodarone. He is off aspirin. He was on cefepime, Lovenox, Procrit, Pepcid, NovoLog, Levemir, they are all on hold. Since his white count is increasing and he is on dialysis, I would give him 1 dose of vancomycin tomorrow after dialysis if he is going to get dialysis. We will follow. Allan Lawrence MD
[2017-08-26] MEDS: (Novolog) Insulin Aspart, Recombinant 100 u/ml 10 ml vial SC SCH ×4 (00:55→17:57)
[2017-08-26 05:29] LABS: ABG ALLEN TEST POS; ABG MECHANICAL RATE 12; ARTERIAL BLOOD GAS MODE PRVC; ARTERIAL BLOOD HGB O2 SAT 92.6 % (95.0-98.0); ATERIAL BLOOD GAS PEEP 6; CARBOXYHEMOGLOBIN 2.5 % (0.5-1.5); DRAW SITE RR; HHB 3.8 % (0.0-5.0); METHEMOGLOBIN 1.1 % (0.0-3.0)
[2017-08-26 06:31] LABS: BASO # 0.2 K/uL (0.0-0.2); BASO % 1.1 % (0.0-2.0); EOS # 0.3 K/uL (0.0-0.7); EOS % 1.6 % (0.0-4.0); HEMATOCRIT 29.8 % (35.0-51.0); LYMPH # 1.1 K/uL (1.0-4.3); LYMPH % 5.4 % (20.0-40.0); MEAN CELL VOLUME 74.7 fL (80.0-94.0); MEAN CORPUSCULAR HEMOGLOBIN 23.4 pg (27.0-31.0); MEAN CORPUSCULAR HGB CONC 31.3 g/dL (33.0-37.0); MEAN PLATELET VOLUME 8.3 fL (7.2-11.7); MONO # 1.3 K/uL (0.0-0.8); MONO % 6.2 % (0.0-10.0); NRBC % 0.1 % (0.0-2.0); PLATELET COUNT 631 K/uL (130-400); RED CELL DISTRIBUTION WIDTH 22.3 % (11.5-14.5); WHITE BLOOD COUNT 20.8 K/uL (4.8-10.8)
[2017-08-26 06:43] LABS: POTASSIUM 4.9 mmol/L (3.6-5.2)
[2017-08-26 06:45] LABS: ALB/GLOB RATIO 0.9 (1.0-2.1); BILIRUBIN,TOTAL 0.8 mg/dL (0.2-1.3)
[2017-08-26 06:46] LABS: CALCIUM 9.1 mg/dl (8.6-10.4); PHOSPHOROUS 10.6 mg/dL (2.5-4.5)
[2017-08-26 06:47] LABS: MAGNESIUM 3.2 mg/dL (1.6-2.3)
--- NOTE | 2017-08-26 08:06 | CP.PCM.PN ---
<Torsten Timmons - Last Filed: 08/26/17 08:03> Subjective - Date & Time of Evaluation Date of Evaluation: 08/26/17 Time of Evaluation: 07:00 - Subjective Subjective: PGy5 GI Fellow progress Note Patient seen and examined bedside this morning. The patient had PEG placement yesterday without issue. No events overnight. No pain at PEG site. 12 system ROS cannot be performed given mentation. Objective - Vital Signs/Intake and Output Vital Signs (last 24 hours): Temp Pulse Resp BP Pulse Ox 98.1 F 96 H 33 H 144/50 L 96 08/26/17 04:00 08/26/17 06:07 08/26/17 06:07 08/26/17 06:07 08/26/17 06:07 Intake and Output: 08/26/17 08/26/17 06:59 18:59 Intake Total 400.4 Balance 400.4 - Medications Medications: Current Medications Acetaminophen (Tylenol 650mg/20.3ml Solution Ud) 650 mg PO Q6 PRN PRN Reason: Temperature Last Admin: 08/19/17 12:11 Dose: 650 mg Albuterol/Ipratropium (Duoneb 3 Mg/0.5 Mg (3 Ml) Ud) 3 ml INH RQ4 [facility] Last Admin: 08/22/17 11:27 Dose: 3 ml Amiodarone HCl (Cordarone) 200 mg PO TID [facility] Aspirin (Aspirin Chewable) 81 mg PO DAILY [facility] Last Admin: 08/22/17 10:09 Dose: Not Given Calcium Acetate (Phoslo) 667 mg GT TID [facility] Last Admin: 08/25/17 17:51 Dose: Not Given Enoxaparin Sodium (Lovenox) 30 mg SC DAILY [facility] Last Admin: 08/22/17 10:00 Dose: Not Given Epoetin Chencho (Procrit) 10,000 unit IV MWF [facility] Last Admin: 08/24/17 09:49 Dose: 10,000 unit Famotidine (Pepcid) 20 mg PO DAILY [facility] Last Admin: 08/25/17 10:00 Dose: Not Given Cefepime HCl 1 gm/ Dextrose 50 mls @ 100 mls/hr IVPB Q24H [facility] Last Admin: 08/25/17 12:51 Dose: 100 mls/hr Midazolam HCl 100 mg/ Sodium (Chloride) 100 mls @ 1.67 mls/hr IV .Q24H [facility]; 0.02 MG/KG/HR PRN Reason: Protocol Last Admin: 08/25/17 16:00 Dose: Not Given Insulin Aspart (Novolog) 0 unit SC Q6 [facility] PRN Reason: Protocol Last Admin: 08/26/17 06:55 Dose: Not Given Insulin Detemir (Levemir) 16 unit SC Q12H [facility] Last Admin: 08/25/17 21:22 Dose: 16 unit Lactobacillus Acidophilus (Bacid Acidophilus) 1 cap PO BID [facility] Last Admin: 08/25/17 17:32 Dose: 1 cap Lorazepam (Ativan) 1 mg IVP Q2H PRN PRN Reason: Anxiety Last Admin: 08/23/17 13:50 Dose: 1 mg Metoprolol Tartrate (Lopressor) 50 mg PO BID [facility] Last Admin: 08/25/17 17:32 Dose: 50 mg Rosuvastatin Calcium (Crestor) 10 mg PO HS [facility] Last Admin: 08/25/17 21:23 Dose: 10 mg - Labs Labs: 08/26/17 06:24 08/26/17 06:24 PT 13.9 SECONDS (9.7-12.2) H 08/24/17 06:08 INR 1.2 08/24/17 06:08 APTT 55 SECONDS (21-34) H D 08/17/17 06:12 - Constitutional Appears: No Acute Distress, Chronically Ill - Eye Exam Eye Exam: PERRL - ENT Exam ENT Exam: Mucous Membranes Dry - Respiratory Exam Respiratory Exam: Rales. absent: Clear to Ausculation Bilateral, Rhonchi, Wheezes - Cardiovascular Exam Cardiovascular Exam: RRR, +S1, +S2 - GI/Abdominal Exam GI & Abdominal Exam: Soft, Normal Bowel Sounds. absent: Distended, Firm, Guarding, Rigid, Tenderness, Organomegaly Additional comments: PEG in LUQ; bumper loosened to 4 - Extremities Exam Extremities Exam: Pedal Edema - Neurological Exam Neurological Exam: Altered, Awake - Skin Skin Exam: Dry, Warm Assessment and Plan - Assessment and Plan (Free Text) Assessment: Patient is a 77yo male with PMHx significant for CAD, CHF, HTN, HLD, DM2, CKD, anemia and DVT with prior use of Eliquis who initially presented to the ED with SOB and chest pain. He has since suffered cardiopulmonary arrest and is s/p ACLS protocol with ROSC. Pt intubated and s/p tracheostomy. -Acute respiratory failure requiring mechanical ventilation -NSTEMI and cardiac arrest during this hospitalization -Pneumonia -B/L pleural effusions -Systolic CHF with acute exacerbation -Malnutrition s/p PEG placement Plan: -S/P PEG placement POD#1 -Bumper loosened to 4cm -Continue use for meds; OK to start tube feeding at noon - Nephro with goal of 50cc/hr -Will sign off. Please reconsult if needed. Thank you for allowing us to participate in the care of your patient <Stefan Dsouza - Last Filed: 08/26/17 08:59> Objective - Vital Signs/Intake and Output Vital Signs (last 24 hours): Temp Pulse Resp BP Pulse Ox 98.1 F 96 H 33 H 144/50 L 96 08/26/17 04:00 08/26/17 06:07 08/26/17 06:07 08/26/17 06:07 08/26/17 06:07 Intake and Output: 08/26/17 08/26/17 06:59 18:59 Intake Total 400.4 Balance 400.4 - Medications Medications: Current Medications Acetaminophen (Tylenol 650mg/20.3ml Solution Ud) 650 mg PO Q6 PRN PRN Reason: Temperature Last Admin: 08/19/17 12:11 Dose: 650 mg Albuterol/Ipratropium (Duoneb 3 Mg/0.5 Mg (3 Ml) Ud) 3 ml INH RQ4 [facility] Last Admin: 08/22/17 11:27 Dose: 3 ml Amiodarone HCl (Cordarone) 200 mg PO TID [facility] Aspirin (Aspirin Chewable) 81 mg PO DAILY [facility] Last Admin: 08/22/17 10:09 Dose: Not Given Calcium Acetate (Phoslo) 667 mg GT TID [facility] Last Admin: 08/25/17 17:51 Dose: Not Given Enoxaparin Sodium (Lovenox) 30 mg SC DAILY [facility] Last Admin: 08/22/17 10:00 Dose: Not Given Epoetin Chencho (Procrit) 10,000 unit IV MWF [facility] Last Admin: 08/24/17 09:49 Dose: 10,000 unit Famotidine (Pepcid) 20 mg PO DAILY [facility] Last Admin: 08/25/17 10:00 Dose: Not Given Cefepime HCl 1 gm/ Dextrose 50 mls @ 100 mls/hr IVPB Q24H [facility] Last Admin: 08/25/17 12:51 Dose: 100 mls/hr Midazolam HCl 100 mg/ Sodium (Chloride) 100 mls @ 1.67 mls/hr IV .Q24H [facility]; 0.02 MG/KG/HR PRN Reason: Protocol Last Admin: 08/25/17 16:00 Dose: Not Given Insulin Aspart (Novolog) 0 unit SC Q6 [facility] PRN Reason: Protocol Last Admin: 08/26/17 06:55 Dose: Not Given Insulin Detemir (Levemir) 16 unit SC Q12H [facility] Last Admin: 08/25/17 21:22 Dose: 16 unit Lactobacillus Acidophilus (Bacid Acidophilus) 1 cap PO BID [facility] Last Admin: 08/25/17 17:32 Dose: 1 cap Lorazepam (Ativan) 1 mg IVP Q2H PRN PRN Reason: Anxiety Last Admin: 08/23/17 13:50 Dose: 1 mg Metoprolol Tartrate (Lopressor) 50 mg PO BID [facility] Last Admin: 08/25/17 17:32 Dose: 50 mg Rosuvastatin Calcium (Crestor) 10 mg PO HS [facility] Last Admin: 08/25/17 21:23 Dose: 10 mg - Labs Labs: 08/26/17 06:24 08/26/17 06:24 PT 13.9 SECONDS (9.7-12.2) H 08/24/17 06:08 INR 1.2 08/24/17 06:08 APTT 55 SECONDS (21-34) H D 08/17/17 06:12 Attending/Attestation - Attestation I have personally seen and examined this patient.: Yes I have fully participated in the care of the patient.: Yes I have reviewed all pertinent clinical information, including history, physical exam and plan: Yes Notes (Text): 08/26/17 08:58 77 year old male with h/o CAD, CHF, HTN, DM, CKD, DVT admitted with cardiac arrest, respiratory failure, s/p trach and now s/p PEG. 1. Malnutrition Plan: s/p peg -no signs of complications -ok to resume asa/plavix -start tube feeds -will sign off
[2017-08-26 08:19] LABS: NEUTROPHIL 85 % (50-75); TOTAL CELLS COUNTED 100
[2017-08-26] MEDS: Insulin Detemir 100 units/ml Vial (Levemir) SC SCH ×2 (08:59→20:32)
[2017-08-26] MEDS: Lactobacillus Acidophilus 500 MU Cap PO SCH ×2 (09:06→17:59)
--- NOTE | 2017-08-26 10:51 | RAD ---
PROCEDURE: CHEST RADIOGRAPH, 1 VIEW HISTORY: mid line insertion COMPARISON: Chest x-ray 08/25/2017 FINDINGS: LUNGS: Stable patchy opacities in the right mid lung. PLEURA: Blunting left costophrenic margin likely from a small effusion. This is stable. CARDIOVASCULAR: Cardiomegaly. Left pacemaker present. OSSEOUS STRUCTURES: No significant abnormalities. VISUALIZED UPPER ABDOMEN: Normal. OTHER FINDINGS: Tracheostomy tube in place. Right subclavian hemodialysis catheter with tip at the cavoatrial junction. Interval placement of a midline PICC with tip in the distal subclavian vein. . IMPRESSION: Right arm PICC is seen with the tip in the distal subclavian vein. The PICC may be used.
--- NOTE | 2017-08-26 10:52 | PCM.SURG1 ---
Surgeon's Initial Post Op Note - Surgeon's Notes Surgeon: Sina Gross MD Assurance Manager: NONE Type of Anesthesia: Local Pre-Operative Diagnosis: Poor venous access Operative Findings: Patent right brachial vein. Post-Operative Diagnosis: Poor venous access Operation Performed: Dual lumen midline picc placement via the right brachial vein. Ptcc is trimmmed to 25 cm. Tip of the picc is in the subclavian vein. Specimen/Specimens Removed: None Estimated Blood Loss: EBL {In ML}: 2 Blood Products Given: N/A Drains Used: No Drains Post-Op Condition: Poor Date of Surgery/Procedure: 08/26/17 Time of Surgery/Procedure: 10:30
--- NOTE | 2017-08-26 12:20 | CP.CCUPN ---
<Chintan Oliver E - Last Filed: 08/26/17 14:16> CCU Subjective - Physician Review Subjective (Free Text): Patient seen and examined at bedside. Patient was alert with extraocular movement. Patient is with tracheostomy and PEG tube. As per nursing, there were no acute issues overnight. Unable to evaluate ROS as patient is non- verbal. CCU Objective - Vital Signs / Intake & Output Intake and Output (Last 8hrs): Intake & Output 08/25/17 08/26/17 08/26/17 22:59 06:59 14:59 Intake Total 366.9 133.6 Balance 366.9 133.6 Intake: IV 50 Intake, IV Amount 316.9 133.6 Left Hand 266.8 133.6 Right Proximal Port 50.1 Tube Feeding 0 0 Other: # Voids Urine, Voided 0 # Bowel Movements 0 0 - Physical Exam Head: Positive for: Atraumatic Pupils: Positive for: Sluggish Respiratory/Chest: Positive for: Clear to Auscultation, Other (Tracheostomy ) Cardiovascular: Positive for: Regular Rate and Rhythm, Normal S1, S2 Abdomen: Positive for: Distention, Normal Bowel Sounds, Other (obese habitus) Upper Extremity: Negative for: Edema Lower Extremity: Negative for: Edema, Swelling Skin: Positive for: Warm, Dry Psychiatric: Positive for: Alert (off sedation). Negative for: Oriented x 3 - Medications Active Medications: Active Medications Generic Name Dose Route Start Last Admin Trade Name Freq PRN Reason Stop Dose Admin Acetaminophen 650 mg 08/11/17 17:40 08/19/17 12:11 Tylenol 650mg/20.3ml Solution Ud PO 650 mg Q6 PRN Administration Temperature Albuterol/Ipratropium 3 ml 08/18/17 12:00 08/22/17 11:27 Duoneb 3 Mg/0.5 Mg (3 Ml) Ud INH 3 ml RQ4 LUIS FERNANDO Administration Amiodarone HCl 200 mg 08/26/17 10:00 08/26/17 09:06 Cordarone PO 200 mg TID LUIS FERNANDO Administration Apixaban 2.5 mg 08/27/17 12:00 Eliquis PO BID LUIS FERNANDO Aspirin 81 mg 08/14/17 11:15 08/22/17 10:09 Aspirin Chewable PO Not Given DAILY LUIS FERNANDO Calcium Acetate 667 mg 08/25/17 10:00 08/26/17 09:00 Phoslo GT Not Given TID LUIS FERNANDO Epoetin Chencho 10,000 unit 08/17/17 14:00 08/24/17 09:49 Procrit IV 10,000 unit MWF LUIS FERNANDO Administration Famotidine 20 mg 08/09/17 10:00 08/26/17 09:06 Pepcid PO 20 mg DAILY LUIS FERNANDO Administration Cefepime HCl 1 gm/ Dextrose 50 mls @ 100 mls/hr 08/19/17 12:00 08/25/17 12:51 IVPB 100 mls/hr Q24H LUIS FERNANDO Administration Midazolam HCl 100 mg/ Sodium 100 mls @ 1.67 mls/hr 08/23/17 16:00 08/25/17 16 :00 Chloride IV Not Given .Q24H [facility] Protocol 0.02 MG/KG/HR Insulin Aspart 0 unit 08/23/17 13:34 08/26/17 06:55 Novolog SC Not Given Q6 [facility] Protocol Insulin Detemir 16 unit 08/20/17 08:18 08/26/17 08:59 Levemir SC Not Given Q12H LUIS FERNANDO Lactobacillus Acidophilus 1 cap 08/13/17 18:00 08/26/17 09:06 Bacid Acidophilus PO 1 cap BID LUIS FERNANDO Administration Lorazepam 1 mg 08/23/17 10:28 08/26/17 11:10 Ativan IVP 1 mg Q2H PRN Administration Anxiety Metoprolol Tartrate 50 mg 08/22/17 09:09 08/26/17 09:07 Lopressor PO Not Given BID LUIS FERNANDO Rosuvastatin Calcium 10 mg 08/06/17 22:00 08/25/17 21:23 Crestor PO 10 mg HS LUIS FERNANDO Administration - Patient Studies Lab Studies: Microbiology Studies 08/25/17 11:13 Gram Stain - Final Sputum Lab Studies 08/26/17 08/26/17 08/26/17 Range/Units 06:24 06:24 06:24 WBC 20.8 H (4.8-10.8) K/uL RBC 3.98 L (4.40-5.90) Mil/uL Hgb 9.3 L (12.0-18.0) g/dL Hct 29.8 L (35.0-51.0) % MCV 74.7 L (80.0-94.0) fL MCH 23.4 L (27.0-31.0) pg MCHC 31.3 L (33.0-37.0) g/dL RDW 22.3 H (11.5-14.5) % Plt Count 631 H (130-400) K/uL MPV 8.3 (7.2-11.7) fL Neut % (Auto) 85.7 H (50.0-75.0) % Lymph % (Auto) 5.4 L (20.0-40.0) % [place] % (Auto) 6.2 (0.0-10.0) % Eos % (Auto) 1.6 (0.0-4.0) % Baso % (Auto) 1.1 (0.0-2.0) % Neut # 17.8 H (1.8-7.0) K/uL Lymph # 1.1 (1.0-4.3) K/uL [place] # 1.3 H (0.0-0.8) K/uL Eos # 0.3 (0.0-0.7) K/uL Baso # 0.2 (0.0-0.2) K/uL Neutrophils % (Manual) 85 H (50-75) % Band Neutrophils % 2 (0-2) % Lymphocytes % (Manual) 8 L (20-40) % Monocytes % (Manual) 5 (0-10) % Platelet Estimate Increased H (NORMAL) Hypochromasia (manual) Slight Anisocytosis (manual) Moderate Ovalocytes Slight Puncture Site pCO2 (35-45) mm/Hg pO2 (80-100) mm/Hg HCO3 (21-28) mmol/L ABG pH (7.35-7.45) ABG Total CO2 (22-28) mmol/L ABG O2 Saturation (95-98) % ABG Base Excess (-2.0-3.0) mmol/L ABG Hemoglobin (11.7-17.4) g/dL ABG Carboxyhemoglobin (0.5-1.5) % POC ABG HHb (Measured) (0.0-5.0) % ABG Methemoglobin (0.0-3.0) % Uriel Test A-a O2 Difference mm/Hg Respiratory Index Hgb O2 Saturation (95.0-98.0) % Vent Mode Mechanical Rate FiO2 % Tidal Volume PEEP Sodium 135 (132-148) mmol/L Potassium 4.9 (3.6-5.2) mmol/L Chloride 94 L (98-107) mmol/L Carbon Dioxide 21 L (22-30) mmol/L Anion Gap 25 H (10-20) BUN 89 H (9-20) mg/dL Creatinine 7.3 H D (0.8-1.5) MG/DL Est GFR ( Amer) 9 Est GFR (Non-Af Amer) 7 POC Glucose (mg/dL) (65-110) mg/dL Random Glucose 209 H (75-110) mg/dL Calcium 9.1 (8.6-10.4) mg/dl Phosphorus 10.6 H (2.5-4.5) mg/dL Magnesium 3.2 H (1.6-2.3) mg/dL Total Bilirubin 0.8 (0.2-1.3) mg/dL AST 59 (17-59) U/L ALT 51 (21-72) U/L Alkaline Phosphatase 152 H (38-126) U/L Total Protein 7.0 (6.3-8.3) g/dL Albumin 3.4 L (3.5-5.0) g/dL Globulin 3.6 (2.2-3.9) gm/dL Albumin/Globulin Ratio 0.9 L (1.0-2.1) Random Vancomycin 19.28 ug/mL 08/26/17 08/25/17 08/25/17 Range/Units 05:20 23:42 18:23 WBC (4.8-10.8) K/uL RBC (4.40-5.90) Mil/uL Hgb (12.0-18.0) g/dL Hct (35.0-51.0) % MCV (80.0-94.0) fL MCH (27.0-31.0) pg MCHC (33.0-37.0) g/dL RDW (11.5-14.5) % Plt Count (130-400) K/uL MPV (7.2-11.7) fL Neut % (Auto) (50.0-75.0) % Lymph % (Auto) (20.0-40.0) % [place] % (Auto) (0.0-10.0) % Eos % (Auto) (0.0-4.0) % Baso % (Auto) (0.0-2.0) % Neut # (1.8-7.0) K/uL Lymph # (1.0-4.3) K/uL [place] # (0.0-0.8) K/uL Eos # (0.0-0.7) K/uL Baso # (0.0-0.2) K/uL Neutrophils % (Manual) (50-75) % Band Neutrophils % (0-2) % Lymphocytes % (Manual) (20-40) % Monocytes % (Manual) (0-10) % Platelet Estimate (NORMAL) Hypochromasia (manual) Anisocytosis (manual) Ovalocytes Puncture Site Rr pCO2 35 (35-45) mm/Hg pO2 72 L (80-100) mm/Hg HCO3 23.2 (21-28) mmol/L ABG pH 7.41 (7.35-7.45) ABG Total CO2 23.3 (22-28) mmol/L ABG O2 Saturation 96.1 (95-98) % ABG Base Excess -2.1 L (-2.0-3.0) mmol/L ABG Hemoglobin 9.7 L (11.7-17.4) g/dL ABG Carboxyhemoglobin 2.5 H (0.5-1.5) % POC ABG HHb (Measured) 3.8 (0.0-5.0) % ABG Methemoglobin 1.1 (0.0-3.0) % Uriel Test Pos A-a O2 Difference 169.0 mm/Hg Respiratory Index 2.3 Hgb O2 Saturation 92.6 L (95.0-98.0) % Vent Mode Prvc Mechanical Rate 12 FiO2 40.0 % Tidal Volume 450 PEEP 6 Sodium (132-148) mmol/L Potassium (3.6-5.2) mmol/L Chloride (98-107) mmol/L Carbon Dioxide (22-30) mmol/L Anion Gap (10-20) BUN (9-20) mg/dL Creatinine (0.8-1.5) MG/DL Est GFR ( Amer) Est GFR (Non-Af Amer) POC Glucose (mg/dL) 260 H 254 H (65-110) mg/dL Random Glucose (75-110) mg/dL Calcium (8.6-10.4) mg/dl Phosphorus (2.5-4.5) mg/dL Magnesium (1.6-2.3) mg/dL Total Bilirubin (0.2-1.3) mg/dL AST (17-59) U/L ALT (21-72) U/L Alkaline Phosphatase (38-126) U/L Total Protein (6.3-8.3) g/dL Albumin (3.5-5.0) g/dL Globulin (2.2-3.9) gm/dL Albumin/Globulin Ratio (1.0-2.1) Random Vancomycin ug/mL Laboratory Results - last 24 hr 08/25/17 08/25/17 08/26/17 18:23 23:42 05:20 WBC RBC Hgb Hct MCV MCH MCHC RDW Plt Count MPV Neut % (Auto) Lymph % (Auto) [place] % (Auto) Eos % (Auto) Baso % (Auto) Neut # Lymph # [place] # Eos # Baso # Neutrophils % (Manual) Band Neutrophils % Lymphocytes % (Manual) Monocytes % (Manual) Platelet Estimate Hypochromasia (manual) Anisocytosis (manual) Ovalocytes Puncture Site Rr pCO2 35 pO2 72 L HCO3 23.2 ABG pH 7.41 ABG Total CO2 23.3 ABG O2 Saturation 96.1 ABG Base Excess -2.1 L ABG Hemoglobin 9.7 L ABG Carboxyhemoglobin 2.5 H POC ABG HHb (Measured) 3.8 ABG Methemoglobin 1.1 Uriel Test Pos A-a O2 Difference 169.0 Respiratory Index 2.3 Hgb O2 Saturation 92.6 L Vent Mode Prvc Mechanical Rate 12 FiO2 40.0 Tidal Volume 450 PEEP 6 Sodium Potassium Chloride Carbon Dioxide Anion Gap BUN Creatinine Est GFR ( Amer) Est GFR (Non-Af Amer) POC Glucose (mg/dL) 254 H 260 H Random Glucose Calcium Phosphorus Magnesium Total Bilirubin AST ALT Alkaline Phosphatase Total Protein Albumin Globulin Albumin/Globulin Ratio Random Vancomycin 08/26/17 08/26/17 08/26/17 06:24 06:24 06:24 WBC 20.8 H RBC 3.98 L Hgb 9.3 L Hct 29.8 L MCV 74.7 L MCH 23.4 L MCHC 31.3 L RDW 22.3 H Plt Count 631 H MPV 8.3 Neut % (Auto) 85.7 H Lymph % (Auto) 5.4 L [place] % (Auto) 6.2 Eos % (Auto) 1.6 Baso % (Auto) 1.1 Neut # 17.8 H Lymph # 1.1 [place] # 1.3 H Eos # 0.3 Baso # 0.2 Neutrophils % (Manual) 85 H Band Neutrophils % 2 Lymphocytes % (Manual) 8 L Monocytes % (Manual) 5 Platelet Estimate Increased H Hypochromasia (manual) Slight Anisocytosis (manual) Moderate Ovalocytes Slight Puncture Site pCO2 pO2 HCO3 ABG pH ABG Total CO2 ABG O2 Saturation ABG Base Excess ABG Hemoglobin ABG Carboxyhemoglobin POC ABG HHb (Measured) ABG Methemoglobin Uriel Test A-a O2 Difference Respiratory Index Hgb O2 Saturation Vent Mode Mechanical Rate FiO2 Tidal Volume PEEP Sodium 135 Potassium 4.9 Chloride 94 L Carbon Dioxide 21 L Anion Gap 25 H BUN 89 H Creatinine 7.3 H D Est GFR ( Amer) 9 Est GFR (Non-Af Amer) 7 POC Glucose (mg/dL) Random Glucose 209 H Calcium 9.1 Phosphorus 10.6 H Magnesium 3.2 H Total Bilirubin 0.8 AST 59 ALT 51 Alkaline Phosphatase 152 H Total Protein 7.0 Albumin 3.4 L Globulin 3.6 Albumin/Globulin Ratio 0.9 L Random Vancomycin 19.28 Fingerstick Blood Sugar Results: 286 Review of Systems - Review of Systems Review of Systems: Unable to evaluate ROS as patient is currently non-verbal Critical Care Progress Note - Nutrition Nutrition: Nutrition Category Date Time Status NPO Diet [DIET] Diets 08/21/17 Dinner Active Assessment/Plan - Assessment and Plan (Free Text) Assessment: 77 year old male admitted to ICU on 08/10 from hospital floors, patient was to get a CT scan and had respiratory distress, code blue was called and patient was transferred to ICU and intubated. Patient is with tracheostomy Today: PEG tube in place Midline placement No drainage from left pleural effusion Plan: Neuro: no acute issues - Versed 2 mg IV prn for anxiety - Ativan 1mg IVP Q2H prn Pulm: Acute respiratory failure in severe ARDS, intubated. - 08/19 CT chest showed large right pleural effusion. Right sided pigtail was placed. -08/25: Chest X-ray:Stable left pleural effusion---> IR consult for left effusion drainage--> No drainage from left pleural effusion (08/26/17) - Tracheostomy in place, FIO2 decreased from 60%-50%-40% (08/26/17) - Duoneb 3 ml INH RQ4 CV: NSTEMI and onset of A.flutter - Plavix discontinued due to stent being placed >1 year ago. - ASA 81 mg PO daily (HELD) - Lopressor 25 mg PO BID - Crestor 10 mg PO HS -Amiodarone 200mg PO TID -Eliquis 2.5mg PO BID Heme: h/o anemia, DVT - 08/09 Lower extremities doppler negative for DVTs bilaterally - ASA 81 mg PO daily Renal: ALIREZA - Continue aggressive HD (MWF) via perma cath - Sevelamer Carbonate 2,400mg PO TIDCC - Procrit 10,000 unit IV MWF Endo: DM type 2 - ISS- High dose protocol - Levemir 16 U SC Q12 GI: no acute issues Dr. Wills on board for PEG -TUBE placement * PEG tube in place : Sanchez D/C ID: Severe sepsis from pneumonia Leukocytosis - 08/19 Sputum: no growth - 08/18 Urine Cx: no growth - Cefepime 1 gm daily: Day 6 (started on 08/19) - 08/26/17: F/u repeat blood culture, sputum culture and urine culture and procalcitonin Prophylaxis DVT: SCDs and Eliquis 2.5mg PO BID GI: pepcid 20 mg PO daily, Lactobacillus 1 cap PO BID Acetaminophen 650 mg PO prn Sanchez for strict I/O's during acute illness Code status - full code <Diaz Streeter - Last Filed: 08/26/17 16:41> CCU Objective - Vital Signs / Intake & Output Vital Signs (Last 4 hours): Vital Signs Pulse Resp BP Pulse Ox 08/26/17 14:00 105 H 19 130/55 L 99 08/26/17 13:30 100 H 20 121/57 L 99 08/26/17 13:00 102 H 19 137/65 99 Intake and Output (Last 8hrs): Intake & Output 08/26/17 08/26/17 08/26/17 06:59 14:59 22:59 Intake Total 133.6 Balance 133.6 Intake: Intake, IV Amount 133.6 Left Hand 133.6 Tube Feeding 0 Other: # Bowel Movements 0 - Medications Active Medications: Active Medications Generic Name Dose Route Start Last Admin Trade Name Freq PRN Reason Stop Dose Admin Acetaminophen 650 mg 08/11/17 17:40 08/19/17 12:11 Tylenol 650mg/20.3ml Solution Ud PO 650 mg Q6 PRN Administration Temperature Albuterol/Ipratropium 3 ml 08/26/17 16:00 08/26/17 16:00 Duoneb 3 Mg/0.5 Mg (3 Ml) Ud INH 3 ml RQ4 LUIS FERNANDO Administration Amiodarone HCl 200 mg 08/26/17 10:00 08/26/17 14:30 Cordarone PO 200 mg TID LUIS FERNANDO Administration Apixaban 2.5 mg 08/27/17 12:00 Eliquis PO BID LUIS FERNANDO Aspirin 81 mg 08/26/17 14:00 08/26/17 14:30 Aspirin Chewable PO 81 mg DAILY LUIS FERNANDO Administration Calcium Acetate 1,334 mg 08/26/17 14:00 08/26/17 14:21 Phoslo GT Not Given TID LUIS FERNANDO Epoetin Chencho 10,000 unit 08/17/17 14:00 08/26/17 14:05 Procrit IV 10,000 unit MWF LUIS FERNANDO Administration Famotidine 20 mg 08/09/17 10:00 08/26/17 09:06 Pepcid PO 20 mg DAILY LUIS FERNANDO Administration Cefepime HCl 1 gm/ Dextrose 50 mls @ 100 mls/hr 08/19/17 12:00 08/26/17 14:30 IVPB 100 mls/hr Q24H LUIS FERNANDO Administration Midazolam HCl 100 mg/ Sodium 100 mls @ 1.67 mls/hr 08/23/17 16:00 08/26/17 16 :02 Chloride IV Not Given .Q24H [facility] Protocol 0.02 MG/KG/HR Insulin Aspart 0 unit 08/23/17 13:34 08/26/17 14:21 Novolog SC Not Given Q6 [facility] Protocol Insulin Detemir 16 unit 08/20/17 08:18 08/26/17 08:59 Levemir SC Not Given Q12H [facility] Lactobacillus Acidophilus 1 cap 08/13/17 18:00 08/26/17 09:06 Bacid Acidophilus PO 1 cap BID LUIS FERNANDO Administration Lorazepam 1 mg 08/23/17 10:28 08/26/17 11:10 Ativan IVP 1 mg Q2H PRN Administration Anxiety Metoprolol Tartrate 50 mg 08/22/17 09:09 08/26/17 09:07 Lopressor PO Not Given BID LUIS FERNANDO Rosuvastatin Calcium 10 mg 08/06/17 22:00 08/25/17 21:23 Crestor PO 10 mg HS LUIS FERNANDO Administration - Patient Studies Lab Studies: Microbiology Studies 08/25/17 11:13 Gram Stain - Final Sputum Lab Studies 08/26/17 08/26/17 08/26/17 Range/Units 12:30 06:24 06:24 WBC (4.8-10.8) K/uL RBC (4.40-5.90) Mil/uL Hgb (12.0-18.0) g/dL Hct (35.0-51.0) % MCV (80.0-94.0) fL MCH (27.0-31.0) pg MCHC (33.0-37.0) g/dL RDW (11.5-14.5) % Plt Count (130-400) K/uL MPV (7.2-11.7) fL Neut % (Auto) (50.0-75.0) % Lymph % (Auto) (20.0-40.0) % [place] % (Auto) (0.0-10.0) % Eos % (Auto) (0.0-4.0) % Baso % (Auto) (0.0-2.0) % Neut # (1.8-7.0) K/uL Lymph # (1.0-4.3) K/uL [place] # (0.0-0.8) K/uL Eos # (0.0-0.7) K/uL Baso # (0.0-0.2) K/uL Neutrophils % (Manual) (50-75) % Band Neutrophils % (0-2) % Lymphocytes % (Manual) (20-40) % Monocytes % (Manual) (0-10) % Platelet Estimate (NORMAL) Hypochromasia (manual) Anisocytosis (manual) Ovalocytes Puncture Site pCO2 (35-45) mm/Hg pO2 (80-100) mm/Hg HCO3 (21-28) mmol/L ABG pH (7.35-7.45) ABG Total CO2 (22-28) mmol/L ABG O2 Saturation (95-98) % ABG Base Excess (-2.0-3.0) mmol/L ABG Hemoglobin (11.7-17.4) g/dL ABG Carboxyhemoglobin (0.5-1.5) % POC ABG HHb (Measured) (0.0-5.0) % ABG Methemoglobin (0.0-3.0) % Uriel Test A-a O2 Difference mm/Hg Respiratory Index Hgb O2 Saturation (95.0-98.0) % Vent Mode Mechanical Rate FiO2 % Tidal Volume PEEP Sodium (132-148) mmol/L Potassium (3.6-5.2) mmol/L Chloride (98-107) mmol/L Carbon Dioxide (22-30) mmol/L Anion Gap (10-20) BUN (9-20) mg/dL Creatinine (0.8-1.5) MG/DL Est GFR ( Amer) Est GFR (Non-Af Amer) POC Glucose (mg/dL) 165 H (65-110) mg/dL Random Glucose (75-110) mg/dL Calcium (8.6-10.4) mg/dl Phosphorus (2.5-4.5) mg/dL Magnesium (1.6-2.3) mg/dL Total Bilirubin (0.2-1.3) mg/dL AST (17-59) U/L ALT (21-72) U/L Alkaline Phosphatase (38-126) U/L Total Protein (6.3-8.3) g/dL Albumin (3.5-5.0) g/dL Globulin (2.2-3.9) gm/dL Albumin/Globulin Ratio (1.0-2.1) Procalcitonin 3.11 H (0.19-0.49) NG/ML Random Vancomycin 19.28 ug/mL 08/26/17 08/26/17 08/26/17 Range/Units 06:24 06:24 05:20 WBC 20.8 H (4.8-10.8) K/uL RBC 3.98 L (4.40-5.90) Mil/uL Hgb 9.3 L (12.0-18.0) g/dL Hct 29.8 L (35.0-51.0) % MCV 74.7 L (80.0-94.0) fL MCH 23.4 L (27.0-31.0) pg MCHC 31.3 L (33.0-37.0) g/dL RDW 22.3 H (11.5-14.5) % Plt Count 631 H (130-400) K/uL MPV 8.3 (7.2-11.7) fL Neut % (Auto) 85.7 H (50.0-75.0) % Lymph % (Auto) 5.4 L (20.0-40.0) % [place] % (Auto) 6.2 (0.0-10.0) % Eos % (Auto) 1.6 (0.0-4.0) % Baso % (Auto) 1.1 (0.0-2.0) % Neut # 17.8 H (1.8-7.0) K/uL Lymph # 1.1 (1.0-4.3) K/uL [place] # 1.3 H (0.0-0.8) K/uL Eos # 0.3 (0.0-0.7) K/uL Baso # 0.2 (0.0-0.2) K/uL Neutrophils % (Manual) 85 H (50-75) % Band Neutrophils % 2 (0-2) % Lymphocytes % (Manual) 8 L (20-40) % Monocytes % (Manual) 5 (0-10) % Platelet Estimate Increased H (NORMAL) Hypochromasia (manual) Slight Anisocytosis (manual) Moderate Ovalocytes Slight Puncture Site Rr pCO2 35 (35-45) mm/Hg pO2 72 L (80-100) mm/Hg HCO3 23.2 (21-28) mmol/L ABG pH 7.41 (7.35-7.45) ABG Total CO2 23.3 (22-28) mmol/L ABG O2 Saturation 96.1 (95-98) % ABG Base Excess -2.1 L (-2.0-3.0) mmol/L ABG Hemoglobin 9.7 L (11.7-17.4) g/dL ABG Carboxyhemoglobin 2.5 H (0.5-1.5) % POC ABG HHb (Measured) 3.8 (0.0-5.0) % ABG Methemoglobin 1.1 (0.0-3.0) % Uriel Test Pos A-a O2 Difference 169.0 mm/Hg Respiratory Index 2.3 Hgb O2 Saturation 92.6 L (95.0-98.0) % Vent Mode Prvc Mechanical Rate 12 FiO2 40.0 % Tidal Volume 450 PEEP 6 Sodium 135 (132-148) mmol/L Potassium 4.9 (3.6-5.2) mmol/L Chloride 94 L (98-107) mmol/L Carbon Dioxide 21 L (22-30) mmol/L Anion Gap 25 H (10-20) BUN 89 H (9-20) mg/dL Creatinine 7.3 H D (0.8-1.5) MG/DL Est GFR ( Amer) 9 Est GFR (Non-Af Amer) 7 POC Glucose (mg/dL) (65-110) mg/dL Random Glucose 209 H (75-110) mg/dL Calcium 9.1 (8.6-10.4) mg/dl Phosphorus 10.6 H (2.5-4.5) mg/dL Magnesium 3.2 H (1.6-2.3) mg/dL Total Bilirubin 0.8 (0.2-1.3) mg/dL AST 59 (17-59) U/L ALT 51 (21-72) U/L Alkaline Phosphatase 152 H (38-126) U/L Total Protein 7.0 (6.3-8.3) g/dL Albumin 3.4 L (3.5-5.0) g/dL Globulin 3.6 (2.2-3.9) gm/dL Albumin/Globulin Ratio 0.9 L (1.0-2.1) Procalcitonin (0.19-0.49) NG/ML Random Vancomycin ug/mL 08/25/17 08/25/17 Range/Units 23:42 18:23 WBC (4.8-10.8) K/uL RBC (4.40-5.90) Mil/uL Hgb (12.0-18.0) g/dL Hct (35.0-51.0) % MCV (80.0-94.0) fL MCH (27.0-31.0) pg MCHC (33.0-37.0) g/dL RDW (11.5-14.5) % Plt Count (130-400) K/uL MPV (7.2-11.7) fL Neut % (Auto) (50.0-75.0) % Lymph % (Auto) (20.0-40.0) % [place] % (Auto) (0.0-10.0) % Eos % (Auto) (0.0-4.0) % Baso % (Auto) (0.0-2.0) % Neut # (1.8-7.0) K/uL Lymph # (1.0-4.3) K/uL [place] # (0.0-0.8) K/uL Eos # (0.0-0.7) K/uL Baso # (0.0-0.2) K/uL Neutrophils % (Manual) (50-75) % Band Neutrophils % (0-2) % Lymphocytes % (Manual) (20-40) % Monocytes % (Manual) (0-10) % Platelet Estimate (NORMAL) Hypochromasia (manual) Anisocytosis (manual) Ovalocytes Puncture Site pCO2 (35-45) mm/Hg pO2 (80-100) mm/Hg HCO3 (21-28) mmol/L ABG pH (7.35-7.45) ABG Total CO2 (22-28) mmol/L ABG O2 Saturation (95-98) % ABG Base Excess (-2.0-3.0) mmol/L ABG Hemoglobin (11.7-17.4) g/dL ABG Carboxyhemoglobin (0.5-1.5) % POC ABG HHb (Measured) (0.0-5.0) % ABG Methemoglobin (0.0-3.0) % Uriel Test A-a O2 Difference mm/Hg Respiratory Index Hgb O2 Saturation (95.0-98.0) % Vent Mode Mechanical Rate FiO2 % Tidal Volume PEEP Sodium (132-148) mmol/L Potassium (3.6-5.2) mmol/L Chloride (98-107) mmol/L Carbon Dioxide (22-30) mmol/L Anion Gap (10-20) BUN (9-20) mg/dL Creatinine (0.8-1.5) MG/DL Est GFR ( Amer) Est GFR (Non-Af Amer) POC Glucose (mg/dL) 260 H 254 H (65-110) mg/dL Random Glucose (75-110) mg/dL Calcium (8.6-10.4) mg/dl Phosphorus (2.5-4.5) mg/dL Magnesium (1.6-2.3) mg/dL Total Bilirubin (0.2-1.3) mg/dL AST (17-59) U/L ALT (21-72) U/L Alkaline Phosphatase (38-126) U/L Total Protein (6.3-8.3) g/dL Albumin (3.5-5.0) g/dL Globulin (2.2-3.9) gm/dL Albumin/Globulin Ratio (1.0-2.1) Procalcitonin (0.19-0.49) NG/ML Random Vancomycin ug/mL Laboratory Results - last 24 hr 08/25/17 08/25/17 08/26/17 18:23 23:42 05:20 WBC RBC Hgb Hct MCV MCH MCHC RDW Plt Count MPV Neut % (Auto) Lymph % (Auto) [place] % (Auto) Eos % (Auto) Baso % (Auto) Neut # Lymph # [place] # Eos # Baso # Neutrophils % (Manual) Band Neutrophils % Lymphocytes % (Manual) Monocytes % (Manual) Platelet Estimate Hypochromasia (manual) Anisocytosis (manual) Ovalocytes Puncture Site Rr pCO2 35 pO2 72 L HCO3 23.2 ABG pH 7.41 ABG Total CO2 23.3 ABG O2 Saturation 96.1 ABG Base Excess -2.1 L ABG Hemoglobin 9.7 L ABG Carboxyhemoglobin 2.5 H POC ABG HHb (Measured) 3.8 ABG Methemoglobin 1.1 Uriel Test Pos A-a O2 Difference 169.0 Respiratory Index 2.3 Hgb O2 Saturation 92.6 L Vent Mode Prvc Mechanical Rate 12 FiO2 40.0 Tidal Volume 450 PEEP 6 Sodium Potassium Chloride Carbon Dioxide Anion Gap BUN Creatinine Est GFR ( Amer) Est GFR (Non-Af Amer) POC Glucose (mg/dL) 254 H 260 H Random Glucose Calcium Phosphorus Magnesium Total Bilirubin AST ALT Alkaline Phosphatase Total Protein Albumin Globulin Albumin/Globulin Ratio Procalcitonin Random Vancomycin 08/26/17 08/26/17 08/26/17 06:24 06:24 06:24 WBC 20.8 H RBC 3.98 L Hgb 9.3 L Hct 29.8 L MCV 74.7 L MCH 23.4 L MCHC 31.3 L RDW 22.3 H Plt Count 631 H MPV 8.3 Neut % (Auto) 85.7 H Lymph % (Auto) 5.4 L [place] % (Auto) 6.2 Eos % (Auto) 1.6 Baso % (Auto) 1.1 Neut # 17.8 H Lymph # 1.1 [place] # 1.3 H Eos # 0.3 Baso # 0.2 Neutrophils % (Manual) 85 H Band Neutrophils % 2 Lymphocytes % (Manual) 8 L Monocytes % (Manual) 5 Platelet Estimate Increased H Hypochromasia (manual) Slight Anisocytosis (manual) Moderate Ovalocytes Slight Puncture Site pCO2 pO2 HCO3 ABG pH ABG Total CO2 ABG O2 Saturation ABG Base Excess ABG Hemoglobin ABG Carboxyhemoglobin POC ABG HHb (Measured) ABG Methemoglobin Uriel Test A-a O2 Difference Respiratory Index Hgb O2 Saturation Vent Mode Mechanical Rate FiO2 Tidal Volume PEEP Sodium 135 Potassium 4.9 Chloride 94 L Carbon Dioxide 21 L Anion Gap 25 H BUN 89 H Creatinine 7.3 H D Est GFR ( Amer) 9 Est GFR (Non-Af Amer) 7 POC Glucose (mg/dL) Random Glucose 209 H Calcium 9.1 Phosphorus 10.6 H Magnesium 3.2 H Total Bilirubin 0.8 AST 59 ALT 51 Alkaline Phosphatase 152 H Total Protein 7.0 Albumin 3.4 L Globulin 3.6 Albumin/Globulin Ratio 0.9 L Procalcitonin Random Vancomycin 19.28 08/26/17 08/26/17 06:24 12:30 WBC RBC Hgb Hct MCV MCH MCHC RDW Plt Count MPV Neut % (Auto) Lymph % (Auto) [place] % (Auto) Eos % (Auto) Baso % (Auto) Neut # Lymph # [place] # Eos # Baso # Neutrophils % (Manual) Band Neutrophils % Lymphocytes % (Manual) Monocytes % (Manual) Platelet Estimate Hypochromasia (manual) Anisocytosis (manual) Ovalocytes Puncture Site pCO2 pO2 HCO3 ABG pH ABG Total CO2 ABG O2 Saturation ABG Base Excess ABG Hemoglobin ABG Carboxyhemoglobin POC ABG HHb (Measured) ABG Methemoglobin Uriel Test A-a O2 Difference Respiratory Index Hgb O2 Saturation Vent Mode Mechanical Rate FiO2 Tidal Volume PEEP Sodium Potassium Chloride Carbon Dioxide Anion Gap BUN Creatinine Est GFR ( Amer) Est GFR (Non-Af Amer) POC Glucose (mg/dL) 165 H Random Glucose Calcium Phosphorus Magnesium Total Bilirubin AST ALT Alkaline Phosphatase Total Protein Albumin Globulin Albumin/Globulin Ratio Procalcitonin 3.11 H Random Vancomycin Critical Care Progress Note - Nutrition Nutrition: Nutrition Category Date Time Status NPO Diet [DIET] Diets 08/21/17 Dinner Active Assessment/Plan (1) ARDS (adult respiratory distress syndrome) Current Visit: Yes Status: Acute Attending/Attestation - Attestation I have personally seen and examined this patient.: Yes I have fully participated in the care of the patient.: Yes I have reviewed all pertinent clinical information: Yes Notes (Text): 08/26/17 16:31 I have seen and examined the patient. Medical records, lab studies, and imaging were reviewed by me and a management plan was formulated on multidisciplinary rounds with resident Dr. Oliver. I agree with their above documented assessment and plan. Patient is clinically improved, vent oxygenation requirements decreasing, will start PS trials. Persistent WBC uncertain source, possible sacral ulcer, possible hidden pneumonia behind heart border. Stopping abx and reculturing. patient also stable for transfer to LTAC. Explained to family he will need bed bug exterminator followup with scallop cutter for eventual cardiac cath. Critical Care Time 35 minutes. Multi-disciplinary rounds were performed with house staff, nursing, speech therapy, respiratory therapy, pharmacy and nutrition with integrated input from the primary team/attending and other consulting services. The documented time is cumulative and includes review of patient data/exams/labs/chart review and examination of the patient on rounds and throughout the day; time is exclusive of any procedures or teaching time.
--- NOTE | 2017-08-26 13:24 | CP.PCM.PN ---
Subjective - Date & Time of Evaluation Date of Evaluation: 08/26/17 Time of Evaluation: 13:21 - Subjective Subjective: Seen on dialysis UF decreased due to tachycardia PEG placed Unable to do thoracentesis Phos elevated Not responsive as before Objective - Vital Signs/Intake and Output Vital Signs (last 24 hours): Temp Pulse Resp BP Pulse Ox 98 F 102 H 19 137/65 99 08/26/17 10:40 08/26/17 13:00 08/26/17 13:00 08/26/17 13:00 08/26/17 13:00 Intake and Output: 08/26/17 08/26/17 06:59 18:59 Intake Total 400.4 Balance 400.4 - Medications Medications: Current Medications Acetaminophen (Tylenol 650mg/20.3ml Solution Ud) 650 mg PO Q6 PRN PRN Reason: Temperature Last Admin: 08/19/17 12:11 Dose: 650 mg Albuterol/Ipratropium (Duoneb 3 Mg/0.5 Mg (3 Ml) Ud) 3 ml INH RQ4 [facility] Last Admin: 08/22/17 11:27 Dose: 3 ml Amiodarone HCl (Cordarone) 200 mg PO TID [facility] Last Admin: 08/26/17 09:06 Dose: 200 mg Apixaban (Eliquis) 2.5 mg PO BID [facility] Aspirin (Aspirin Chewable) 81 mg PO DAILY [facility] Last Admin: 08/22/17 10:09 Dose: Not Given Calcium Acetate (Phoslo) 1,334 mg GT TID [facility] Epoetin Chencho (Procrit) 10,000 unit IV MWF [facility] Last Admin: 08/24/17 09:49 Dose: 10,000 unit Famotidine (Pepcid) 20 mg PO DAILY [facility] Last Admin: 08/26/17 09:06 Dose: 20 mg Cefepime HCl 1 gm/ Dextrose 50 mls @ 100 mls/hr IVPB Q24H [facility] Last Admin: 08/25/17 12:51 Dose: 100 mls/hr Midazolam HCl 100 mg/ Sodium (Chloride) 100 mls @ 1.67 mls/hr IV .Q24H [facility]; 0.02 MG/KG/HR PRN Reason: Protocol Last Admin: 08/25/17 16:00 Dose: Not Given Insulin Aspart (Novolog) 0 unit SC Q6 [facility] PRN Reason: Protocol Last Admin: 08/26/17 06:55 Dose: Not Given Insulin Detemir (Levemir) 16 unit SC Q12H [facility] Last Admin: 08/26/17 08:59 Dose: Not Given Lactobacillus Acidophilus (Bacid Acidophilus) 1 cap PO BID [facility] Last Admin: 08/26/17 09:06 Dose: 1 cap Lorazepam (Ativan) 1 mg IVP Q2H PRN PRN Reason: Anxiety Last Admin: 08/26/17 11:10 Dose: 1 mg Metoprolol Tartrate (Lopressor) 50 mg PO BID [facility] Last Admin: 08/26/17 09:07 Dose: Not Given Rosuvastatin Calcium (Crestor) 10 mg PO HS [facility] Last Admin: 08/25/17 21:23 Dose: 10 mg - Labs Labs: 08/26/17 06:24 08/26/17 06:24 PT 13.9 SECONDS (9.7-12.2) H 08/24/17 06:08 INR 1.2 08/24/17 06:08 APTT 55 SECONDS (21-34) H D 08/17/17 06:12 - Constitutional Appears: In Acute Distress, Chronically Ill - Head Exam Head Exam: ATRAUMATIC, NORMAL INSPECTION - Eye Exam Eye Exam: Normal appearance - Neck Exam Neck Exam: Normal Inspection. absent: Tenderness - Respiratory Exam Respiratory Exam: Decreased Breath Sounds - Cardiovascular Exam Cardiovascular Exam: Tachycardia, +S1 - GI/Abdominal Exam GI & Abdominal Exam: Soft. absent: Tenderness - Extremities Exam Extremities Exam: Normal Inspection. absent: Tenderness - Neurological Exam Neurological Exam: Altered, Motor Sensory Deficit - Skin Skin Exam: Warm Assessment and Plan (1) Acute on chronic renal failure Status: Acute (2) CAD (coronary artery disease) Status: Acute (3) CHF exacerbation Status: Chronic (4) Type 2 diabetes mellitus with diabetic nephropathy Status: Acute (5) CKD stage 4 due to type 2 diabetes mellitus Status: Acute (6) Cardiorenal disease Status: Acute - Assessment and Plan (Free Text) Plan: Increase phoslo attempt increase UF with HD HD MWF
[2017-08-26] MEDS: EPOETIN ALFA 10,000 UNIT/ML ML IV SCH (14:05)
--- NOTE | 2017-08-26 14:15 | CP.PCM.PN ---
<Darryl Roe - Last Filed: 08/26/17 14:21> Subjective - Date & Time of Evaluation Date of Evaluation: 08/26/17 Time of Evaluation: 07:40 - Subjective Subjective: Cardiology Progress Note- Dr. Cortés's service Patient seen and examined and minimally responsive at this time. No acute events per nursing. Patient s/p tracheostomy, peg placement and midline placement. Patient not able to respond to ROS at this time due to his status. Objective - Vital Signs/Intake and Output Vital Signs (last 24 hours): Temp Pulse Resp BP Pulse Ox 98 F 100 H 20 121/57 L 99 08/26/17 10:40 08/26/17 13:30 08/26/17 13:30 08/26/17 13:30 08/26/17 13:30 Intake and Output: 08/26/17 08/26/17 06:59 18:59 Intake Total 400.4 Balance 400.4 - Medications Medications: Current Medications Acetaminophen (Tylenol 650mg/20.3ml Solution Ud) 650 mg PO Q6 PRN PRN Reason: Temperature Last Admin: 08/19/17 12:11 Dose: 650 mg Albuterol/Ipratropium (Duoneb 3 Mg/0.5 Mg (3 Ml) Ud) 3 ml INH RQ4 [facility] Amiodarone HCl (Cordarone) 200 mg PO TID [facility] Last Admin: 08/26/17 09:06 Dose: 200 mg Apixaban (Eliquis) 2.5 mg PO BID [facility] Aspirin (Aspirin Chewable) 81 mg PO DAILY [facility] Calcium Acetate (Phoslo) 1,334 mg GT TID [facility] Epoetin Chencho (Procrit) 10,000 unit IV MWF [facility] Last Admin: 08/26/17 14:05 Dose: 10,000 unit Famotidine (Pepcid) 20 mg PO DAILY [facility] Last Admin: 08/26/17 09:06 Dose: 20 mg Cefepime HCl 1 gm/ Dextrose 50 mls @ 100 mls/hr IVPB Q24H [facility] Last Admin: 08/25/17 12:51 Dose: 100 mls/hr Midazolam HCl 100 mg/ Sodium (Chloride) 100 mls @ 1.67 mls/hr IV .Q24H [facility]; 0.02 MG/KG/HR PRN Reason: Protocol Last Admin: 08/25/17 16:00 Dose: Not Given Insulin Aspart (Novolog) 0 unit SC Q6 [facility] PRN Reason: Protocol Last Admin: 08/26/17 06:55 Dose: Not Given Insulin Detemir (Levemir) 16 unit SC Q12H [facility] Last Admin: 08/26/17 08:59 Dose: Not Given Lactobacillus Acidophilus (Bacid Acidophilus) 1 cap PO BID [facility] Last Admin: 08/26/17 09:06 Dose: 1 cap Lorazepam (Ativan) 1 mg IVP Q2H PRN PRN Reason: Anxiety Last Admin: 08/26/17 11:10 Dose: 1 mg Metoprolol Tartrate (Lopressor) 50 mg PO BID [facility] Last Admin: 08/26/17 09:07 Dose: Not Given Rosuvastatin Calcium (Crestor) 10 mg PO HS [facility] Last Admin: 08/25/17 21:23 Dose: 10 mg - Labs Labs: 08/26/17 06:24 08/26/17 06:24 PT 13.9 SECONDS (9.7-12.2) H 08/24/17 06:08 INR 1.2 08/24/17 06:08 APTT 55 SECONDS (21-34) H D 08/17/17 06:12 - Constitutional Appears: Non-toxic, Chronically Ill - Head Exam Head Exam: ATRAUMATIC - Eye Exam Eye Exam: EOMI, Normal appearance, PERRL Pupil Exam: NORMAL ACCOMODATION - ENT Exam ENT Exam: Mucous Membranes Moist Additional comments: trach collar in place - Respiratory Exam Respiratory Exam: NORMAL BREATHING PATTERN - Cardiovascular Exam Cardiovascular Exam: +S1, +S2 - GI/Abdominal Exam GI & Abdominal Exam: Soft, Normal Bowel Sounds - Extremities Exam Extremities Exam: Full ROM - Back Exam Back Exam: Full ROM - Neurological Exam Neurological Exam: Alert, Awake - Skin Skin Exam: Dry, Warm Assessment and Plan (1) Chest pain Status: Acute (2) CHF exacerbation Status: Chronic (3) Pneumonia Status: Acute (4) CAD (coronary artery disease) Status: Acute (5) HTN (hypertension) Status: Chronic (6) CKD (chronic kidney disease) Status: Acute (7) Diabetes mellitus Status: Chronic (8) HLD (hyperlipidemia) Status: Chronic (9) Constipation Status: Chronic (10) Anemia Status: Chronic (11) History of DVT (deep vein thrombosis) Status: Acute (12) Prophylactic measure Status: Acute - Assessment and Plan (Free Text) Assessment: Atrial Flutter Intermittent Likely due to Dobutamine adminstration earlier in the week which has since been discontinued on Amiodarone 200mg PO TID; will likely need a better 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 Plavix discontinued. -Echocardiogram from 08/08/17 showed left ventricle systolic function is severely impaired. EF: 25-30%; global hypokinesis of LV mild AR. MR is moderate. Moderate-severe pulmonary hypertension Systolic CHF exacerbation -BNP [id number] on 08/06/17 -Continue ASA, Crestor, Metoprolol -Echocardiogram from 08/08/17 showed left ventricle systolic function is severely impaired. EF: 25-30%; global hypokinesis of LV mild AR. MR is moderate. -Moderate-severe pulmonary hypertesnion Dobutamine discontinued in light of atrial flutter-type episodes Prophylaxis -Pepcid 20 mg PO daily -Eliquis 2.5 mg PO BID ( Renal precautions) Discussed with attending. All management and planning per Dr. Cortés <Sina Cortés - Last Filed: 08/26/17 22:50> Objective - Vital Signs/Intake and Output Vital Signs (last 24 hours): Temp Pulse Resp BP Pulse Ox 99.6 F 89 15 129/38 L 98 08/26/17 20:00 08/26/17 20:47 08/26/17 20:47 08/26/17 20:47 08/26/17 20:47 Intake and Output: 08/26/17 08/27/17 18:59 06:59 Intake Total 226.8 90 Output Total 0 0 Balance 226.8 90 - Medications Medications: Current Medications Acetaminophen (Tylenol 650mg/20.3ml Solution Ud) 650 mg PO Q6 PRN PRN Reason: Temperature Last Admin: 08/19/17 12:11 Dose: 650 mg Albuterol/Ipratropium (Duoneb 3 Mg/0.5 Mg (3 Ml) Ud) 3 ml INH RQ4 [facility] Last Admin: 08/26/17 19:37 Dose: 3 ml Amiodarone HCl (Cordarone) 200 mg PO TID [facility] Last Admin: 08/26/17 17:57 Dose: 200 mg Apixaban (Eliquis) 2.5 mg PO BID [facility] Aspirin (Aspirin Chewable) 81 mg PO DAILY [facility] Last Admin: 08/26/17 14:30 Dose: 81 mg Calcium Acetate (Phoslo) 1,334 mg GT TID [facility] Last Admin: 08/26/17 17:57 Dose: 1,334 mg Epoetin Chencho (Procrit) 10,000 unit IV MWF [facility] Last Admin: 08/26/17 14:05 Dose: 10,000 unit Famotidine (Pepcid) 20 mg PO DAILY [facility] Last Admin: 08/26/17 09:06 Dose: 20 mg Cefepime HCl 1 gm/ Dextrose 50 mls @ 100 mls/hr IVPB Q24H [facility] Last Admin: 08/26/17 14:30 Dose: 100 mls/hr Midazolam HCl 100 mg/ Sodium (Chloride) 100 mls @ 1.67 mls/hr IV .Q24H [facility]; 0.02 MG/KG/HR PRN Reason: Protocol Last Admin: 08/26/17 16:02 Dose: Not Given Insulin Aspart (Novolog) 0 unit SC Q6 [facility] PRN Reason: Protocol Last Admin: 08/26/17 17:57 Dose: 1 unit Insulin Detemir (Levemir) 16 unit SC Q12H [facility] Last Admin: 08/26/17 20:32 Dose: 16 unit Lactobacillus Acidophilus (Bacid Acidophilus) 1 cap PO BID [facility] Last Admin: 08/26/17 17:59 Dose: 1 cap Lorazepam (Ativan) 1 mg IVP Q2H PRN PRN Reason: Anxiety Last Admin: 08/26/17 11:10 Dose: 1 mg Metoprolol Tartrate (Lopressor) 50 mg PO BID [facility] Last Admin: 08/26/17 17:56 Dose: 50 mg Rosuvastatin Calcium (Crestor) 10 mg PO HS [facility] Last Admin: 08/26/17 22:41 Dose: 10 mg - Labs Labs: 08/26/17 06:24 08/26/17 06:24 PT 13.9 SECONDS (9.7-12.2) H 08/24/17 06:08 INR 1.2 08/24/17 06:08 APTT 55 SECONDS (21-34) H D 08/17/17 06:12 Assessment and Plan - Assessment and Plan (Free Text) Assessment: Patient seen and evaluated with the medical staff specialist Plan of care as documented
--- NOTE | 2017-08-26 14:18 | CP.PCM.PN ---
Subjective - Date & Time of Evaluation Date of Evaluation: 08/26/17 Time of Evaluation: 14:00 - Subjective Subjective: Medical Attending Note patient seen, examined and case discussed with ICU. Patient seen this afternoon at bedside. Explained with the assistance with Azeri speaking nurse translating for referral to LTAC. patient is status post trach and peg. Patient currently on dialysis off sedation. Patient lifts arms and legs moving extremities but does not follow directions. Unable to ROS secondary to patient's clinical condition. Objective - Vital Signs/Intake and Output Vital Signs (last 24 hours): Temp Pulse Resp BP Pulse Ox 98 F 105 H 19 130/55 L 99 08/26/17 10:40 08/26/17 14:00 08/26/17 14:00 08/26/17 14:00 08/26/17 14:00 Intake and Output: 08/26/17 08/26/17 06:59 18:59 Intake Total 400.4 Balance 400.4 - Medications Medications: Current Medications Acetaminophen (Tylenol 650mg/20.3ml Solution Ud) 650 mg PO Q6 PRN PRN Reason: Temperature Last Admin: 08/19/17 12:11 Dose: 650 mg Albuterol/Ipratropium (Duoneb 3 Mg/0.5 Mg (3 Ml) Ud) 3 ml INH RQ4 [facility] Amiodarone HCl (Cordarone) 200 mg PO TID [facility] Last Admin: 08/26/17 09:06 Dose: 200 mg Apixaban (Eliquis) 2.5 mg PO BID [facility] Aspirin (Aspirin Chewable) 81 mg PO DAILY [facility] Calcium Acetate (Phoslo) 1,334 mg GT TID [facility] Epoetin Chencho (Procrit) 10,000 unit IV MWF [facility] Last Admin: 08/26/17 14:05 Dose: 10,000 unit Famotidine (Pepcid) 20 mg PO DAILY [facility] Last Admin: 08/26/17 09:06 Dose: 20 mg Cefepime HCl 1 gm/ Dextrose 50 mls @ 100 mls/hr IVPB Q24H [facility] Last Admin: 08/25/17 12:51 Dose: 100 mls/hr Midazolam HCl 100 mg/ Sodium (Chloride) 100 mls @ 1.67 mls/hr IV .Q24H [facility]; 0.02 MG/KG/HR PRN Reason: Protocol Last Admin: 08/25/17 16:00 Dose: Not Given Insulin Aspart (Novolog) 0 unit SC Q6 [facility] PRN Reason: Protocol Last Admin: 08/26/17 06:55 Dose: Not Given Insulin Detemir (Levemir) 16 unit SC Q12H [facility] Last Admin: 08/26/17 08:59 Dose: Not Given Lactobacillus Acidophilus (Bacid Acidophilus) 1 cap PO BID [facility] Last Admin: 08/26/17 09:06 Dose: 1 cap Lorazepam (Ativan) 1 mg IVP Q2H PRN PRN Reason: Anxiety Last Admin: 08/26/17 11:10 Dose: 1 mg Metoprolol Tartrate (Lopressor) 50 mg PO BID [facility] Last Admin: 08/26/17 09:07 Dose: Not Given Rosuvastatin Calcium (Crestor) 10 mg PO HS [facility] Last Admin: 08/25/17 21:23 Dose: 10 mg - Labs Labs: 08/26/17 06:24 08/26/17 06:24 PT 13.9 SECONDS (9.7-12.2) H 08/24/17 06:08 INR 1.2 08/24/17 06:08 APTT 55 SECONDS (21-34) H D 08/17/17 06:12 - Constitutional Appears: Chronically Ill - Head Exam Head Exam: NORMAL INSPECTION Additional comments: PICC line--right upper extremity Pacemaker - Eye Exam Eye Exam: EOMI - ENT Exam ENT Exam: Mucous Membranes Dry - Respiratory Exam Respiratory Exam: Decreased Breath Sounds, NORMAL BREATHING PATTERN. absent: Respiratory Distress, Stridor - Cardiovascular Exam Cardiovascular Exam: Tachycardia, +S1, +S2 - GI/Abdominal Exam GI & Abdominal Exam: Distended, Soft, Normal Bowel Sounds. absent: Firm, Guarding, Rigid, Tenderness, Rebound - Extremities Exam Extremities Exam: Pedal Edema (trace edema). absent: Tenderness - Neurological Exam Neurological Exam: Awake - Skin Skin Exam: Dry, Normal Color, Warm Assessment and Plan - Assessment and Plan (Free Text) Assessment: (1) Acute Respiratory Failure ARDS Cardiac Arrest Pulmonary Edema Nonstemi Assessment and Plan: * Code Blue on 08/10: asystole, cardiopulmonary resuscitative measures initiated , requiring 3 epis, bicarbonate, ROSC achieved and intubated and brought to the ICU for further management; Patient in the ICU from 08/10 until present. * Pulmonary: Dr Mena (Dr. Jeffers covering until 09/04/17)-->help appreciated * Cardiology: Dr. Cortés on board-->help appreciated * GI (Dr. Wills) on board-->help appreciated * S/P Tracheostomy 08/22 * S/P Peg tube placement 08/25 * s/p insertion of right posterior chest tube 08/19-->removed 08/24/17 * There was consideration for possible thoracentesis of left side pleural effusion, evaluated by IR, there is no fluid to drain per Dr. Gross * Chest xray (08/26): right arm PICC is seen with the tip of distal subclavian vein. PICC may be used * Per cardiology, * Restart Aspirin 81mg PO daily * Patient does not need Plavix at this time * Recommend for Eliquis 2.5mg PO BID for atrial flutter (2) Abnormal Stress Test History of AICD History of Coronary Artery Disease Assessment and Plan: * Cardiology (Dr. Cortés) on board-->help appreciated * TSH: 1.16; T4: 1.53 * Echocardiogram (08/08/17): left ventricle systolic function is severely impaired. EF: 25-30%; global hypokinesis of left ventricle mild aortic regurgitation. Mitral regurgitation is moderate. Moderate-severe pulmonary hypertension * Plan was for cardiac catheterization; delayed due to acute renal failure; Attempted gentle hydration and mucomyst on 08/09 to optimize prior to cath * On 08/10, patient was in asystole, ACLS protocol, ROSC achieved, intubated and transfered to the ICU. Patient in acute pulmonary edema. * Patient hospitalized in the ICU since 08/10/17 to present. * Medications: * Aspirin 81mg PO daily * Plavix d/c by cardiology * Lopressor 50mg PO bid * Crestor 10mg POqHS * ARB d/c secondary to acute renal failure (3) Atrial flutter Assessment and Plan: * Cardiology (Dr. Cortés) on board-->help appreciated * Refractory to Lopressor/Cardizem IVP * Amiodarone bolus-->Amiodarine drip on 08/24-->converted to Amiodarone 200mg PO TID on 08/26 * Eliquis 2.5mg PO bid Status: Acute (4) Acute on Chronic Systolic CHF exacerbation Assessment and Plan: * Cardiology (Dr. Cortés) on board-->help appreciated * Transferred to the ICU on 08/10 following cardiac arrest and intubation. * Echocardiogram (08/08/17): left ventricular systolic function is severely impaired. EF: 25-30%; global hypokinesis of left ventricle mild aortic regurgitation. Mitral regurgitation is moderate. Moderate-severe pulmonary hypertension * Medications: * Aspirin 81mg PO daily * Plavix d/c by cardiology * Lopressor 50mg PO bid * Crestor 10mg POqHS * ARB d/c secondary to acute renal failure Status: Acute (5) Leukocytosis Assessment and Plan: * Patient's white count rising * Procalcitonin elevated * Patient is recultured today 08/26 Status: Acute (6) Pneumonia Assessment and Plan: * Pulmonary (Dr. Mena) on board-->help appreciated; Dr. Jeffers covering while Dr. Mena away * Infectious Disease (Dr. Lawrence)-->help appreciated * Chest xray (08/26): right arm PICC is seen with the tip of distal subclavian vein. PICC may be used * Rapid A strep, Influenza A and B studies, Urine Legionella, Mycoplasma studies = Negative * Florastor 250mg PO bid * 08/07/17: +Strep Pneumoniae in the urine * Meropenem 500mg IV Q 8 hours (08/14/17 through 08/18/17) and Zosyn 2.25 mg IV Q6H (08/13/17 through 08/18/17) * Cefepime 1 gm IV Q24H (08/19/17)-->DAY 7 * s/p right posterior chest tube 08/19-08/24 * Sputum Culture 08/19/17 shows No growth * Pleural fluid 08/19/17: No growth Status: Acute (7) HTN (hypertension) Assessment and Plan: * Lopressor 50mg PO bid Status: Chronic (8) CKD (chronic kidney disease) on Dialysis Assessment and Plan: * Dr. Miranda (nephrology) consulted on the case * Hx of CKD-->Started on dialysis 08/15/17 * Kurtis catheter placed and removed 08/22 * s/p Permcath 08/22 * Patient is on dialysis; oliguric * Phoslo 1334mg GT TID * Epoetin 10,000 unit IV MWF Status: Acute (9) Diabetes mellitus Assessment and Plan: * Accuchecks Q6H * HgbA1c 8.4 * Levemir 16 units subq12 * Start peg feedings on 08/26/17 * Nepro-->20 ml/hr w goal: 50 ml/h (10) HLD (hyperlipidemia) Assessment and Plan: * On Crestor 10 mg PO HS Status: Chronic (11) Anemia Assessment and Plan: * Heme-oncology (Dr. Giles bender) on board-->help appreciated * Likely iron deficiency anemia based on prior admissions * Ferritin 27.4, Iron 22, TIBC 322, % Saturation 7 * Ferric Sodium Gluconate 125mg IVPB daily (active 08/08-08/16) * Procrit 10,000 units M-W- * Monitor Hgb/Hct: stable Status: Chronic (12) History of DVT (deep vein thrombosis) Assessment and Plan: * Patient was previously on Eliquis for a prior history of DVT. * Repeat dopplers 08/09/17 are negative for DVT * Off Heparin Drip 08/17/17 * Start Eliquis 2.5mg PO BID for atrial flutter and history of DVT Status: Chronic (13) UTI Assessment and Plan: * Infectious disease (Dr. Lawrence) on board-->help appreciated * Exchange jaquez out and repeat urine cultures * Urine Culture 08/12/17 showed Gram Negative Rods: NO identification and NO sensitivities were performed * Meropenem 500mg IV Q 12hours (active since 08/14/17 through 08/18/17) to cover for UTI per ID * Repeat Urine Culture 08/18/17 shows NO growth * 08/25: reculture in light of leukocytosis Status: Chronic (14) Confusion; Alzheimer's Dementia Assessment and Plan: * Per daughter, patient has been getting bouts of confusion over the past year but appears at baseline. Patient has not seen formal neurology as outpatient per daughter. Per , prior to event, noted Alzheimers' disease dx one year ago * CT head w/o contrast (08/10/17):acute os subacute lacune infarct is not excluded in the left basal ganglia inferiorly with definitive chronic lacune identified in the right basal ganglia superiorly. No acute or subacute lobar brain infarction is appreciable by standard CT criteria. Mild age-related neuro degenerative changes are identifed. No acute intracranial hemorrhage or mass is identified throughout * 08/26: Off Sedation-->patient moves all extremities randomly but does not follow directions Status: Chronic (15) Unstageable sacral ulcer Assessment and Plan: * Wound care on board * WOUND CARE NOTE (08/26)-->Pt with a sacral unstageable being treated with medihoney. No changes to dimensions at this time. Also, pt favoring Left side of head and has developed a 1x1 serous filled blister on his left ear. Primary nurse placed duoderm on the ear. Wound care nurse left duoderm in place , and recommends leaving it on until it falls off on its own. Pt has been NPO for several days, new peg inserted yesterday. Will be starting glucerna tube feedings later today. Albumin 3.3 * Turn q 2 hours Status: Acute (15) Prophylactic measure Assessment and Plan: * Pepcid 20mg PO daily * Start Eliquis 2.5mg PO BID * s/p peg placement 08/25 * s/p trachesostomy 08/22 * s/p Permcath placement 08/22 removal Kurtis catheter * s/p right posterior chest tube 08/19-->removed 08/24 * s/p PICC 08/26 * (Jovita Serrano): -->number provided to the nurse- ->consented for peg placement; discussed about LTAC 08/26 * Spoke with Dr. Pickard, PMD regarding patient's hospitalization up until this point 08/26 Disposition: * Patient restarted on Aspirin and Eliquis. * Patient has no drainage for IR to place pigtail for left pleural effusion * Patient's white count uptrending-->f/u repeat cultures * Patient is for LTAC; discussed with case management who will speak with the * s/p PICC line by IR
[2017-08-26] MEDS: Albuterol-Ipratrop 3 mg / 0.5 (3 ml) UD INH SCH ×3 (16:00→23:53)
[2017-08-26] MEDS: Midazolam 50 mg/10 ml 100 MG in Sodium Chloride 0.9% 80 ML IV SCH (16:02)
--- NOTE | 2017-08-26 19:10 | CP.PCM.PN ---
Subjective - Date & Time of Evaluation Date of Evaluation: 08/26/17 Time of Evaluation: 02:30 - Subjective Subjective: dictated Objective - Vital Signs/Intake and Output Vital Signs (last 24 hours): Temp Pulse Resp BP Pulse Ox 98 F 96 H 30 H 133/57 L 98 08/26/17 10:40 08/26/17 18:00 08/26/17 18:00 08/26/17 17:21 08/26/17 18:00 Intake and Output: 08/26/17 08/27/17 18:59 06:59 Intake Total 226.8 Output Total 0 Balance 226.8 - Medications Medications: Current Medications Acetaminophen (Tylenol 650mg/20.3ml Solution Ud) 650 mg PO Q6 PRN PRN Reason: Temperature Last Admin: 08/19/17 12:11 Dose: 650 mg Albuterol/Ipratropium (Duoneb 3 Mg/0.5 Mg (3 Ml) Ud) 3 ml INH RQ4 [facility] Last Admin: 08/26/17 16:00 Dose: 3 ml Amiodarone HCl (Cordarone) 200 mg PO TID [facility] Last Admin: 08/26/17 17:57 Dose: 200 mg Apixaban (Eliquis) 2.5 mg PO BID [facility] Aspirin (Aspirin Chewable) 81 mg PO DAILY [facility] Last Admin: 08/26/17 14:30 Dose: 81 mg Calcium Acetate (Phoslo) 1,334 mg GT TID [facility] Last Admin: 08/26/17 17:57 Dose: 1,334 mg Epoetin Chencho (Procrit) 10,000 unit IV MWF [facility] Last Admin: 08/26/17 14:05 Dose: 10,000 unit Famotidine (Pepcid) 20 mg PO DAILY [facility] Last Admin: 08/26/17 09:06 Dose: 20 mg Cefepime HCl 1 gm/ Dextrose 50 mls @ 100 mls/hr IVPB Q24H [facility] Last Admin: 08/26/17 14:30 Dose: 100 mls/hr Midazolam HCl 100 mg/ Sodium (Chloride) 100 mls @ 1.67 mls/hr IV .Q24H [facility]; 0.02 MG/KG/HR PRN Reason: Protocol Last Admin: 08/26/17 16:02 Dose: Not Given Insulin Aspart (Novolog) 0 unit SC Q6 [facility] PRN Reason: Protocol Last Admin: 08/26/17 17:57 Dose: 1 unit Insulin Detemir (Levemir) 16 unit SC Q12H [facility] Last Admin: 08/26/17 08:59 Dose: Not Given Lactobacillus Acidophilus (Bacid Acidophilus) 1 cap PO BID [facility] Last Admin: 08/26/17 17:59 Dose: 1 cap Lorazepam (Ativan) 1 mg IVP Q2H PRN PRN Reason: Anxiety Last Admin: 08/26/17 11:10 Dose: 1 mg Metoprolol Tartrate (Lopressor) 50 mg PO BID [facility] Last Admin: 08/26/17 17:56 Dose: 50 mg Rosuvastatin Calcium (Crestor) 10 mg PO HS [facility] Last Admin: 08/25/17 21:23 Dose: 10 mg - Labs Labs: 08/26/17 06:24 08/26/17 06:24 PT 13.9 SECONDS (9.7-12.2) H 08/24/17 06:08 INR 1.2 08/24/17 06:08 APTT 55 SECONDS (21-34) H D 08/17/17 06:12
--- NOTE | 2017-08-27 00:21 | PN ---
SUBJECTIVE: The patient remains on the trach vent. He had a PEG yesterday, and he has a midline today place. He still has the right subclavian dialysis catheter, had dialysis before I saw him and he remains on multiple medications and remains chronically ill. Trach site appears unremarkable. PHYSICAL EXAMINATION: NECK: Supple. LUNGS: Clear. Decreased breath sounds bilaterally. HEART: S1 and S2 is tachycardic. ABDOMEN: Remains distended. No guarding. No rigidity present. PEG tube is present. EXTREMITIES: Have edema. He has a chest tube. LABORATORY DATA: Labs show white count is 20.8, hemoglobin 9.3, hematocrit 29.4, platelet count is 631. He received a vancomycin dose yesterday as his white count was increasing and vancomycin random level is adequate for today and he may need vancomycin post dialysis and also, septic workup was done as per resident, but white count is increasing at this time. Sodium is 135, potassium 4.9, chloride is 94, CO2 is 21, BUN is 89, creatinine has jumped up to 7.3. He remains anuric and he is on dialysis and he did have effusion, CHF. He had strep pneumococcal pneumonia in the urine and antigen positive and has been on antibiotics, but white count increasing, we may have to look into C. diff also and he did receive meropenem before and he is not on any steroids at this time and monitor CBC and he had received initially meropenem for quite sometime thinking of ESBL as urine had revealed gram negative, but no I and D sensitivity was released for data as it was a low-colony count and at this time, he remains with respiratory failure status post trach and PEG and had a cardiopulmonary arrest before. Allan Lawrence MD
[2017-08-27] MEDS: (Novolog) Insulin Aspart, Recombinant 100 u/ml 10 ml vial SC SCH ×4 (00:41→17:51)
[2017-08-27] MEDS: Albuterol-Ipratrop 3 mg / 0.5 (3 ml) UD INH SCH ×5 (05:29→19:39)
[2017-08-27 06:50] LABS: BASO # 0.1 K/uL (0.0-0.2); BASO % 0.8 % (0.0-2.0); EOS # 0.3 K/uL (0.0-0.7); EOS % 1.7 % (0.0-4.0); HEMATOCRIT 28.2 % (35.0-51.0); LYMPH # 1.3 K/uL (1.0-4.3); MEAN CELL VOLUME 74.5 fL (80.0-94.0); MEAN CORPUSCULAR HEMOGLOBIN 23.8 pg (27.0-31.0); MEAN CORPUSCULAR HGB CONC 31.9 g/dL (33.0-37.0); MEAN PLATELET VOLUME 7.9 fL (7.2-11.7); MONO # 1.4 K/uL (0.0-0.8); MONO % 7.6 % (0.0-10.0); NRBC % 0.1 % (0.0-2.0); PLATELET COUNT 502 K/uL (130-400); RED CELL DISTRIBUTION WIDTH 22.1 % (11.5-14.5)
[2017-08-27 07:02] LABS: POTASSIUM 4.6 mmol/L (3.6-5.2)
[2017-08-27 07:04] LABS: ALB/GLOB RATIO 0.8 (1.0-2.1); BILIRUBIN,TOTAL 0.9 mg/dL (0.2-1.3); TOTAL PROTEIN 7.2 g/dL (6.3-8.3)
[2017-08-27 07:05] LABS: CALCIUM 8.2 mg/dl (8.6-10.4); MAGNESIUM 2.6 mg/dL (1.6-2.3); PHOSPHOROUS 8.6 mg/dL (2.5-4.5)
--- NOTE | 2017-08-27 08:52 | CP.PCM.PN ---
Subjective - Date & Time of Evaluation Date of Evaluation: 08/27/17 Time of Evaluation: 08:50 - Subjective Subjective: up in chair awake alert not answering questions or following commands ROS unabtainable not responding to questions Objective - Vital Signs/Intake and Output Vital Signs (last 24 hours): Temp Pulse Resp BP Pulse Ox 99.3 F 88 16 132/45 L 96 08/27/17 04:00 08/27/17 08:10 08/27/17 08:10 08/27/17 08:10 08/27/17 08:10 Intake and Output: 08/27/17 08/27/17 06:59 18:59 Intake Total 450 50 Output Total 0 0 Balance 450 50 - Medications Medications: Current Medications Acetaminophen (Tylenol 650mg/20.3ml Solution Ud) 650 mg PO Q6 PRN PRN Reason: Temperature Last Admin: 08/19/17 12:11 Dose: 650 mg Albuterol/Ipratropium (Duoneb 3 Mg/0.5 Mg (3 Ml) Ud) 3 ml INH RQ4 [facility] Last Admin: 08/27/17 08:01 Dose: 3 ml Amiodarone HCl (Cordarone) 200 mg PO TID [facility] Last Admin: 08/26/17 17:57 Dose: 200 mg Apixaban (Eliquis) 2.5 mg PO BID [facility] Aspirin (Aspirin Chewable) 81 mg PO DAILY [facility] Last Admin: 08/26/17 14:30 Dose: 81 mg Calcium Acetate (Phoslo) 1,334 mg GT TID [facility] Last Admin: 08/26/17 17:57 Dose: 1,334 mg Epoetin Chencho (Procrit) 10,000 unit IV MWF [facility] Last Admin: 08/26/17 14:05 Dose: 10,000 unit Famotidine (Pepcid) 20 mg PO DAILY [facility] Last Admin: 08/26/17 09:06 Dose: 20 mg Cefepime HCl 1 gm/ Dextrose 50 mls @ 100 mls/hr IVPB Q24H [facility] Last Admin: 08/26/17 14:30 Dose: 100 mls/hr Midazolam HCl 100 mg/ Sodium (Chloride) 100 mls @ 1.67 mls/hr IV .Q24H [facility]; 0.02 MG/KG/HR PRN Reason: Protocol Last Admin: 08/26/17 16:02 Dose: Not Given Insulin Aspart (Novolog) 0 unit SC Q6 [facility] PRN Reason: Protocol Last Admin: 08/27/17 07:18 Dose: 3 unit Insulin Detemir (Levemir) 16 unit SC Q12H [facility] Last Admin: 08/26/17 20:32 Dose: 16 unit Lactobacillus Acidophilus (Bacid Acidophilus) 1 cap PO BID [facility] Last Admin: 08/26/17 17:59 Dose: 1 cap Lorazepam (Ativan) 1 mg IVP Q2H PRN PRN Reason: Anxiety Last Admin: 08/26/17 11:10 Dose: 1 mg Metoprolol Tartrate (Lopressor) 50 mg PO BID [facility] Last Admin: 08/26/17 17:56 Dose: 50 mg Rosuvastatin Calcium (Crestor) 10 mg PO HS [facility] Last Admin: 08/26/17 22:41 Dose: 10 mg - Labs Labs: 08/27/17 06:43 08/27/17 06:43 PT 13.9 SECONDS (9.7-12.2) H 08/24/17 06:08 INR 1.2 08/24/17 06:08 APTT 55 SECONDS (21-34) H D 08/17/17 06:12 - Constitutional Appears: No Acute Distress - Respiratory Exam Respiratory Exam: Clear to Ausculation Bilateral - Cardiovascular Exam Cardiovascular Exam: REGULAR RHYTHM - GI/Abdominal Exam GI & Abdominal Exam: Distended, Soft. absent: Tenderness - Extremities Exam Extremities Exam: absent: Calf Tenderness, Pedal Edema - Skin Skin Exam: Dry Assessment and Plan (1) Acute on chronic renal failure Status: Acute (2) CHF (congestive heart failure) Status: Acute (3) Cardiorenal disease Status: Acute (4) Type 2 diabetes mellitus with diabetic nephropathy Status: Acute (5) CAD (coronary artery disease) Status: Acute (6) HTN (hypertension) Status: Chronic - Assessment and Plan (Free Text) Plan: continue supportive care next dialysis tentatively 08/29
[2017-08-27 09:03] LABS: NEUTROPHIL 92 % (50-75); TOTAL CELLS COUNTED 100
[2017-08-27 09:06] LABS: LARGE PLATELETS PRESENT; SPHEROCYTES SLIGHT
[2017-08-27] MEDS: Insulin Detemir 100 units/ml Vial (Levemir) SC SCH ×2 (09:06→20:16)
[2017-08-27] MEDS: Lactobacillus Acidophilus 500 MU Cap PO SCH ×2 (10:02→17:25)
--- NOTE | 2017-08-27 14:34 | CP.PCM.PN ---
Subjective - Date & Time of Evaluation Date of Evaluation: 08/27/17 Time of Evaluation: 14:30 - Subjective Subjective: Medical Attending Note: Patient seen and examined at bedside. Patient seen in the early mobility device. Patient able to global climate change researcher on the bar. Per Discussion with the , patient able to recognize her. Patient is not speaking. patient is on trach connected to vent. Per discussion with nurse, Belen, patient has a unstageable sacral ulcer, with granulation tissue. Patient smiles when his present and recognizes the nurse as she comes in and out of the room. patient is not making urine. Patient is having bowel movement. Discussed with case management, patient is pending LTAC. Patient has about 150cc urine on Bladder Scan. Advised to straight cath, and send urine studies out given leukocytosis Objective - Vital Signs/Intake and Output Vital Signs (last 24 hours): Temp Pulse Resp BP Pulse Ox 98 F 97 H 11 L 120/55 L 99 08/27/17 08:00 08/27/17 10:00 08/27/17 10:00 08/27/17 10:11 08/27/17 10:00 Intake and Output: 08/27/17 08/27/17 06:59 18:59 Intake Total 450 350 Output Total 0 0 Balance 450 350 - Medications Medications: Current Medications Albuterol/Ipratropium (Duoneb 3 Mg/0.5 Mg (3 Ml) Ud) 3 ml INH RQ4 [facility] Last Admin: 08/27/17 11:23 Dose: 3 ml Amiodarone HCl (Cordarone) 200 mg PO TID [facility] Last Admin: 08/27/17 13:57 Dose: 200 mg Apixaban (Eliquis) 2.5 mg PO BID [facility] Last Admin: 08/27/17 11:55 Dose: 2.5 mg Aspirin (Aspirin Chewable) 81 mg PO DAILY [facility] Last Admin: 08/27/17 10:01 Dose: 81 mg Calcium Acetate (Phoslo) 1,334 mg GT TID [facility] Last Admin: 08/27/17 13:57 Dose: 1,334 mg Epoetin Chencho (Procrit) 10,000 unit IV MWF [facility] Last Admin: 08/26/17 14:05 Dose: 10,000 unit Famotidine (Pepcid) 20 mg PO DAILY [facility] Last Admin: 08/27/17 10:02 Dose: 20 mg Cefepime HCl 1 gm/ Dextrose 50 mls @ 100 mls/hr IVPB Q24H [facility] Last Admin: 08/27/17 11:08 Dose: 100 mls/hr Midazolam HCl 100 mg/ Sodium (Chloride) 100 mls @ 1.67 mls/hr IV .Q24H [facility]; 0.02 MG/KG/HR PRN Reason: Protocol Last Admin: 08/26/17 16:02 Dose: Not Given Insulin Aspart (Novolog) 0 unit SC Q6 [facility] PRN Reason: Protocol Last Admin: 08/27/17 11:54 Dose: 3 unit Insulin Detemir (Levemir) 16 unit SC Q12H [facility] Last Admin: 08/27/17 09:06 Dose: 16 unit Lactobacillus Acidophilus (Bacid Acidophilus) 1 cap PO BID [facility] Last Admin: 08/27/17 10:02 Dose: 1 cap Lorazepam (Ativan) 1 mg IVP Q2H PRN PRN Reason: Anxiety Last Admin: 08/26/17 11:10 Dose: 1 mg Metoprolol Tartrate (Lopressor) 50 mg PO BID [facility] Last Admin: 08/27/17 10:02 Dose: 50 mg Rosuvastatin Calcium (Crestor) 10 mg PO HS [facility] Last Admin: 08/26/17 22:41 Dose: 10 mg - Labs Labs: 08/27/17 06:43 08/27/17 06:43 PT 13.9 SECONDS (9.7-12.2) H 08/24/17 06:08 INR 1.2 08/24/17 06:08 APTT 55 SECONDS (21-34) H D 08/17/17 06:12 - Constitutional Appears: Non-toxic, No Acute Distress - Head Exam Head Exam: NORMAL INSPECTION - Eye Exam Eye Exam: EOMI - ENT Exam ENT Exam: Mucous Membranes Dry - Respiratory Exam Respiratory Exam: Decreased Breath Sounds, NORMAL BREATHING PATTERN. absent: Rales, Rhonchi, Wheezes, Respiratory Distress Additional comments: on trach s/p vent - Cardiovascular Exam Cardiovascular Exam: REGULAR RHYTHM, +S1, +S2 - GI/Abdominal Exam GI & Abdominal Exam: Distended, Soft, Normal Bowel Sounds. absent: Firm, Guarding, Rigid, Tenderness, Rebound - Extremities Exam Extremities Exam: absent: Pedal Edema, Tenderness Additional comments: prevalon boots b/l - Neurological Exam Neurological Exam: Alert, Awake, Oriented x3 - Psychiatric Exam Psychiatric exam: Normal Affect, Normal Mood - Skin Skin Exam: Dry, Normal Color, Warm Assessment and Plan - Assessment and Plan (Free Text) Assessment: (1) Acute Respiratory Failure ARDS Cardiac Arrest Pulmonary Edema Nonstemi Assessment and Plan: * Code Blue on 08/10: asystole, cardiopulmonary resuscitative measures initiated , requiring 3 epis, bicarbonate, ROSC achieved and intubated and brought to the ICU for further management; Patient in the ICU from 08/10 until present. * Pulmonary: Dr Mean (Dr. Jeffers covering until 09/04/17)-->help appreciated * Cardiology: Dr. Cortés on board-->help appreciated * GI (Dr. Wills) on board-->help appreciated * S/P Tracheostomy 08/22 * S/P Peg tube placement 08/25 * s/p insertion of right posterior chest tube 08/19-->removed 08/24/17 * There was consideration for possible thoracentesis of left side pleural effusion, evaluated by IR, there is no fluid to drain per Dr. Gross * Chest xray (08/26): right arm PICC is seen with the tip of distal subclavian vein. PICC may be used * Per cardiology, * Restart Aspirin 81mg PO daily * Patient does not need Plavix at this time * Recommend for Eliquis 2.5mg PO BID for atrial flutter * 08/27: patient is pending LTAC, he went eventually need cardiac catherization when he has stabilized. Held statin secondary to elevated LFTs. Discussed with Dr. Cortés, lowered Amiodarone 200mg PO daily (2) Abnormal Stress Test History of AICD History of Coronary Artery Disease Assessment and Plan: * Cardiology (Dr. Cortés) on board-->help appreciated * TSH: 1.16; T4: 1.53 * Echocardiogram (08/08/17): left ventricle systolic function is severely impaired. EF: 25-30%; global hypokinesis of left ventricle mild aortic regurgitation. Mitral regurgitation is moderate. Moderate-severe pulmonary hypertension * Plan was for cardiac catheterization; delayed due to acute renal failure; Attempted gentle hydration and mucomyst on 08/09 to optimize prior to cath * On 08/10, patient was in asystole, ACLS protocol, ROSC achieved, intubated and transfered to the ICU. Patient in acute pulmonary edema. * Patient hospitalized in the ICU since 08/10/17 to present. * Medications: * Aspirin 81mg PO daily * Plavix d/c by cardiology * Lopressor 50mg PO bid * d/c Crestor 10mg POqHS secondary to rise in LFTS 08/27--->monitor LFTs daily * ARB d/c secondary to acute renal failure * 08/27: patient is pending LTAC, he went eventually need cardiac catherization when he has stabilized. Held statin secondary to elevated LFTs. Discussed with Dr. Cortés, lowered Amiodarone 200mg PO daily (3) Atrial flutter Assessment and Plan: * Cardiology (Dr. Cortés) on board-->help appreciated * Refractory to Lopressor/Cardizem IVP * Eliquis 2.5mg PO bid * Amiodarone bolus-->Amiodarine drip on 08/24-->converted to Amiodarone 200mg PO TID on 08/26 * 08/27: Discussed with Dr. Cortés, will lower Amiodarone 200mg PO daily and monitor LFTs. Statin held and tylenol d/c Status: Acute (4) Acute on Chronic Systolic CHF exacerbation Assessment and Plan: * Cardiology (Dr. Cortés) on board-->help appreciated * Transferred to the ICU on 08/10 following cardiac arrest and intubation. * Echocardiogram (08/08/17): left ventricular systolic function is severely impaired. EF: 25-30%; global hypokinesis of left ventricle mild aortic regurgitation. Mitral regurgitation is moderate. Moderate-severe pulmonary hypertension * Medications: * Aspirin 81mg PO daily * Plavix d/c by cardiology * Lopressor 50mg PO bid * d/c Crestor 10mg POqHS on 08/27 secondary to rise in LFTs * ARB d/c secondary to acute renal failure Status: Acute (5) Leukocytosis Assessment and Plan: * Patient's white count rising * Procalcitonin elevated * Blood cultures (08/26): no growth After 24hours X2 * UA and urine culture (08/27): pending * Patient has elevated LFTs-->did not start anti-fungal in light of LFTs Status: Acute (6) Pneumonia Assessment and Plan: * Pulmonary (Dr. Mena) on board-->help appreciated; Dr. Jeffers covering while Dr. Mena away * Infectious Disease (Dr. Lawrence)-->help appreciated * Chest xray (08/26): right arm PICC is seen with the tip of distal subclavian vein. PICC may be used * Rapid A strep, Influenza A and B studies, Urine Legionella, Mycoplasma studies = Negative * Florastor 250mg PO bid * 08/07/17: +Strep Pneumoniae in the urine * Meropenem 500mg IV Q 8 hours (08/14/17 through 08/18/17) and Zosyn 2.25 mg IV Q6H (08/13/17 through 08/18/17) * Cefepime 1 gm IV Q24H (08/19/17)-->DAY 8 * s/p right posterior chest tube 08/19-08/24 * Sputum Culture 08/19/17 shows No growth * Pleural fluid 08/19/17: No growth Status: Acute (7) HTN (hypertension) Assessment and Plan: * Lopressor 50mg PO bid Status: Chronic (8) CKD (chronic kidney disease) on Dialysis Assessment and Plan: * Dr. Miranda (nephrology) consulted on the case * Hx of CKD-->Started on dialysis 08/15/17 * Kurtis catheter placed and removed 08/22 * s/p Permcath 08/22 * Patient is on dialysis; oliguric * Phoslo 1334mg GT TID * Epoetin 10,000 unit IV MWF Status: Acute (9) Diabetes mellitus Assessment and Plan: * Accuchecks Q6H * HgbA1c 8.4 * Levemir 16 units subq12 * Start peg feedings on 08/26/17 * Nepro-->20 ml/hr w goal: 50 ml/h (10) HLD (hyperlipidemia) Assessment and Plan: * 08/27: held Crestor 10 mg PO HS secondary to rise in LFTs Status: Chronic (11) Anemia Assessment and Plan: * Heme-oncology (Dr. Giles bender) on board-->help appreciated * Likely iron deficiency anemia based on prior admissions * Ferritin 27.4, Iron 22, TIBC 322, % Saturation 7 * Ferric Sodium Gluconate 125mg IVPB daily (active 08/08-08/16) * Procrit 10,000 units M-W-F * Monitor Hgb/Hct: stable Status: Chronic (12) History of DVT (deep vein thrombosis) Assessment and Plan: * Patient was previously on Eliquis for a prior history of DVT. * Repeat dopplers 08/09/17 are negative for DVT * Off Heparin Drip 08/17/17 * Start Eliquis 2.5mg PO BID for atrial flutter and history of DVT Status: Chronic (13) UTI Assessment and Plan: * Infectious disease (Dr. Lawrence) on board-->help appreciated * Exchange jaquez out and repeat urine cultures * Urine Culture 08/12/17 showed Gram Negative Rods: NO identification and NO sensitivities were performed * Meropenem 500mg IV Q 12hours (active since 08/14/17 through 08/18/17) to cover for UTI per ID * Repeat Urine Culture 08/18/17 shows NO growth * 08/25: reculture in light of leukocytosis * 08/27: pending urine studies Status: Chronic (14) Confusion; Alzheimer's Dementia Assessment and Plan: * Per daughter, patient has been getting bouts of confusion over the past year but appears at baseline. Patient has not seen formal neurology as outpatient per daughter. Per , prior to event, noted Alzheimers' disease dx one year ago * CT head w/o contrast (08/10/17):acute os subacute lacune infarct is not excluded in the left basal ganglia inferiorly with definitive chronic lacune identified in the right basal ganglia superiorly. No acute or subacute lobar brain infarction is appreciable by standard CT criteria. Mild age-related neuro degenerative changes are identifed. No acute intracranial hemorrhage or mass is identified throughout * 08/26: Off Sedation-->patient moves all extremities randomly but does not follow directions * 08/27: off sedation-->patient is very calm, smiles at his Status: Chronic (15) Unstageable sacral ulcer Assessment and Plan: * Wound care on board * WOUND CARE NOTE (08/26)-->Pt with a sacral unstageable being treated with medihoney. No changes to dimensions at this time. Also, pt favoring Left side of head and has developed a 1x1 serous filled blister on his left ear. Primary nurse placed duoderm on the ear. Wound care nurse left duoderm in place , and recommends leaving it on until it falls off on its own. Pt has been NPO for several days, new peg inserted yesterday. Will be starting glucerna tube feedings later today. Albumin 3.3 * Turn q 2 hours * [facility] Status: Acute (16) Elevated LFTs Assessment and Plan: * 08/27: Yina * Discussed with cardiology-->changed amiodarone 200mg PO tid to amiodaron 200mg PO daily * D/C tylenol * Held Statin * patient is also on Rocephin to cover for pneumonia * Will not start antifungal * Will need daily LFTs Status: Acute (17) Prophylactic measure Assessment and Plan: * Pepcid 20mg PO daily * Start Eliquis 2.5mg PO BID * s/p peg placement 08/25 * s/p trachesostomy 08/22 * s/p Permcath placement 08/22 removal Kurtis catheter * s/p right posterior chest tube 08/19-->removed 08/24 * s/p PICC 08/26 * (Jovita Serrano): -->number provided to the nurse- ->consented for peg placement; discussed about LTAC 08/26 * Spoke with Dr. Pickard, PMD regarding patient's hospitalization up until this point 08/26 Disposition: * Patient restarted on Aspirin and Eliquis. * Patient has no drainage for IR to place pigtail for left pleural effusion * Patient's white count uptrending-->f/u repeat cultures (08/26) * Patient is for LTAC; discussed with case management who will speak with the -->pending approval * s/p PICC line by IR * Monitor daily LFTs-->changed amiodarone, d/c tylenol, held statin on 08/27--> continue to monitor
--- NOTE | 2017-08-27 15:32 | CP.CCUPN ---
CCU Subjective - Physician Review Events Since Last Encounter (Free Text): 08/27/17 15:30 patient clinically stable. Sitting up. Awake responding. Tolerating the CPAP. On examination: Vital signs stable. Chest good air entry bilaterally Regular heart sounds Abdomen soft nontender Clinical stable. We will plan to discharge the patient to follow, and possibly for LTAC CCU Objective - Vital Signs / Intake & Output Intake and Output (Last 8hrs): Intake & Output 08/27/17 08/27/17 08/27/17 06:59 14:59 22:59 Intake Total 360 350 Output Total 0 0 Balance 360 350 Weight 187 lb Intake: Tube Feeding 360 200 Other 150 Output: Urine 0 0 Urine, Voided 0 0 Stool 0 0 - Physical Exam Head: Positive for: Atraumatic Pupils: Positive for: Sluggish Conjunctiva: Positive for: Normal Pharnyx: Positive for: Normal Respiratory/Chest: Positive for: Clear to Auscultation, Other (Tracheostomy ) Cardiovascular: Positive for: Regular Rate and Rhythm, Normal S1, S2 Abdomen: Positive for: Distention, Normal Bowel Sounds, Other (obese habitus) Upper Extremity: Negative for: Edema Lower Extremity: Negative for: Edema, Swelling Skin: Positive for: Warm, Dry Psychiatric: Positive for: Alert (off sedation). Negative for: Oriented x 3 - Medications Active Medications: Active Medications Generic Name Dose Route Start Last Admin Trade Name Freq PRN Reason Stop Dose Admin Albuterol/Ipratropium 3 ml 08/26/17 16:00 08/27/17 11:23 Duoneb 3 Mg/0.5 Mg (3 Ml) Ud INH 3 ml RQ4 [facility] Administration Amiodarone HCl 200 mg 08/28/17 10:00 Cordarone PO DAILY [facility]ERNAND[facility] Apixaban 2.5 mg 08/27/17 12:00 08/27/17 11:55 Eliquis PO 2.5 mg BID [facility] FERNANDO Administration Aspirin 81 mg 08/26/17 14:00 08/27/17 10:01 Aspirin Chewable PO 81 mg DAILY [facility]ER[facility] Administration Calcium Acetate 1,334 mg 08/26/17 14:00 08/27/17 13:57 Phoslo GT 1,334 mg TID [facility]ERNANDO Administration Epoetin Chencho 10,000 unit 08/17/17 14:00 08/26/17 14:05 Procrit IV 10,000 unit MWF [facility]ER[facility]ND[facility] Administration Famotidine 20 mg 08/09/17 10:00 08/27/17 10:02 Pepcid PO 20 mg DAILY [facility]ER[facility] Administration Cefepime HCl 1 gm/ Dextrose 50 mls @ 100 mls/hr 08/19/17 12:00 08/27/17 11:08 IVPB 100 mls/hr Q24H [facility]ERNAND[facility] Administration Midazolam HCl 100 mg/ Sodium 100 mls @ 1.67 mls/hr 08/23/17 16:00 08/26/17 16 :02 Chloride IV Not Given .Q24H LUIS FERNANDO Protocol 0.02 MG/KG/HR Insulin Aspart 0 unit 08/23/17 13:34 08/27/17 11:54 Novolog SC 3 unit Q6 [facility] FERNANDO Administration Protocol Insulin Detemir 16 unit 08/20/17 08:18 08/27/17 09:06 Levemir SC 16 unit Q12H [facility]ERNANDO Administration Lactobacillus Acidophilus 1 cap 08/13/17 18:00 08/27/17 10:02 Bacid Acidophilus PO 1 cap BID LU[facility]ERNANDO Administration Lorazepam 1 mg 08/23/17 10:28 08/26/17 11:10 Ativan IVP 1 mg Q2H PRN Administration Anxiety Metoprolol Tartrate 50 mg 08/22/17 09:09 08/27/17 10:02 Lopressor PO 50 mg BID LU[facility] FERNANDO Administration Rosuvastatin Calcium 10 mg 08/06/17 22:00 08/26/17 22:41 Crestor PO 10 mg HS LUIS FERNANDO Administration - Patient Studies Lab Studies: Microbiology Studies 08/26/17 12:30 Blood Culture - Preliminary Blood-Venous NO GROWTH AFTER 24 HOURS 08/26/17 12:00 Blood Culture - Preliminary Blood-Venous NO GROWTH AFTER 24 HOURS 08/25/17 11:13 Gram Stain - Final Sputum Sputum Culture - Final Yeast Species 08/25/17 18:00 Blood Culture - Preliminary Blood NO GROWTH AFTER 24 HOURS 08/25/17 17:30 Blood Culture - Preliminary Blood NO GROWTH AFTER 24 HOURS 08/26/17 15:10 Gram Stain - Final Trachasp Lab Studies 08/27/17 08/27/17 08/27/17 Range/Units 11:18 06:56 06:43 WBC (4.8-10.8) K/uL RBC (4.40-5.90) Mil/uL Hgb (12.0-18.0) g/dL Hct (35.0-51.0) % MCV (80.0-94.0) fL MCH (27.0-31.0) pg MCHC (33.0-37.0) g/dL RDW (11.5-14.5) % Plt Count (130-400) K/uL MPV (7.2-11.7) fL Neut % (Auto) (50.0-75.0) % Lymph % (Auto) (20.0-40.0) % [place] % (Auto) (0.0-10.0) % Eos % (Auto) (0.0-4.0) % Baso % (Auto) (0.0-2.0) % Neut # (1.8-7.0) K/uL Lymph # (1.0-4.3) K/uL [place] # (0.0-0.8) K/uL Eos # (0.0-0.7) K/uL Baso # (0.0-0.2) K/uL Neutrophils % (Manual) (50-75) % Lymphocytes % (Manual) (20-40) % Monocytes % (Manual) (0-10) % Platelet Estimate (NORMAL) Large Platelets Polychromasia Hypochromasia (manual) Poikilocytosis (manual Anisocytosis (manual) Microcytosis (manual) Macrocytosis (manual) Spherocytes Tear Drop Cells Ovalocytes Sodium (132-148) mmol/L Potassium (3.6-5.2) mmol/L Chloride (98-107) mmol/L Carbon Dioxide (22-30) mmol/L Anion Gap (10-20) BUN (9-20) mg/dL Creatinine (0.8-1.5) MG/DL Est GFR ( Amer) Est GFR (Non-Af Amer) POC Glucose (mg/dL) 271 H 267 H (65-110) mg/dL Random Glucose (75-110) mg/dL Calcium (8.6-10.4) mg/dl Phosphorus (2.5-4.5) mg/dL Magnesium (1.6-2.3) mg/dL Total Bilirubin (0.2-1.3) mg/dL AST (17-59) U/L ALT (21-72) U/L Alkaline Phosphatase (38-126) U/L Total Protein (6.3-8.3) g/dL Albumin (3.5-5.0) g/dL Globulin (2.2-3.9) gm/dL Albumin/Globulin Ratio (1.0-2.1) Procalcitonin (0.19-0.49) NG/ML Random Vancomycin 13.51 ug/mL 08/27/17 08/27/17 08/27/17 Range/Units 06:43 06:43 00:30 WBC 18.0 H (4.8-10.8) K/uL RBC 3.79 L (4.40-5.90) Mil/uL Hgb 9.0 L (12.0-18.0) g/dL Hct 28.2 L (35.0-51.0) % MCV 74.5 L (80.0-94.0) fL MCH 23.8 L (27.0-31.0) pg MCHC 31.9 L (33.0-37.0) g/dL RDW 22.1 H (11.5-14.5) % Plt Count 502 H D (130-400) K/uL MPV 7.9 (7.2-11.7) fL Neut % (Auto) 82.9 H (50.0-75.0) % Lymph % (Auto) 7.0 L (20.0-40.0) % [place] % (Auto) 7.6 (0.0-10.0) % Eos % (Auto) 1.7 (0.0-4.0) % Baso % (Auto) 0.8 (0.0-2.0) % Neut # 14.9 H (1.8-7.0) K/uL Lymph # 1.3 (1.0-4.3) K/uL [place] # 1.4 H (0.0-0.8) K/uL Eos # 0.3 (0.0-0.7) K/uL Baso # 0.1 (0.0-0.2) K/uL Neutrophils % (Manual) 92 H (50-75) % Lymphocytes % (Manual) 4 L (20-40) % Monocytes % (Manual) 4 (0-10) % Platelet Estimate Increased H (NORMAL) Large Platelets Present Polychromasia Slight Hypochromasia (manual) Slight Poikilocytosis (manual Slight Anisocytosis (manual) Moderate Microcytosis (manual) Moderate Macrocytosis (manual) Slight Spherocytes Slight Tear Drop Cells Slight Ovalocytes Slight Sodium 133 (132-148) mmol/L Potassium 4.6 (3.6-5.2) mmol/L Chloride 92 L (98-107) mmol/L Carbon Dioxide 22 (22-30) mmol/L Anion Gap 24 H (10-20) BUN 67 H (9-20) mg/dL Creatinine 5.2 H (0.8-1.5) MG/DL Est GFR ( Amer) 13 Est GFR (Non-Af Amer) 11 POC Glucose (mg/dL) 253 H (65-110) mg/dL Random Glucose 231 H (75-110) mg/dL Calcium 8.2 L (8.6-10.4) mg/dl Phosphorus 8.6 H (2.5-4.5) mg/dL Magnesium 2.6 H (1.6-2.3) mg/dL Total Bilirubin 0.9 (0.2-1.3) mg/dL AST 119 H D (17-59) U/L ALT 89 H D (21-72) U/L Alkaline Phosphatase 194 H D (38-126) U/L Total Protein 7.2 (6.3-8.3) g/dL Albumin 3.2 L (3.5-5.0) g/dL Globulin 4.0 H (2.2-3.9) gm/dL Albumin/Globulin Ratio 0.8 L (1.0-2.1) Procalcitonin (0.19-0.49) NG/ML Random Vancomycin ug/mL 08/26/17 08/26/17 Range/Units 17:54 13:20 WBC (4.8-10.8) K/uL RBC (4.40-5.90) Mil/uL Hgb (12.0-18.0) g/dL Hct (35.0-51.0) % MCV (80.0-94.0) fL MCH (27.0-31.0) pg MCHC (33.0-37.0) g/dL RDW (11.5-14.5) % Plt Count (130-400) K/uL MPV (7.2-11.7) fL Neut % (Auto) (50.0-75.0) % Lymph % (Auto) (20.0-40.0) % [place] % (Auto) (0.0-10.0) % Eos % (Auto) (0.0-4.0) % Baso % (Auto) (0.0-2.0) % Neut # (1.8-7.0) K/uL Lymph # (1.0-4.3) K/uL [place] # (0.0-0.8) K/uL Eos # (0.0-0.7) K/uL Baso # (0.0-0.2) K/uL Neutrophils % (Manual) (50-75) % Lymphocytes % (Manual) (20-40) % Monocytes % (Manual) (0-10) % Platelet Estimate (NORMAL) Large Platelets Polychromasia Hypochromasia (manual) Poikilocytosis (manual Anisocytosis (manual) Microcytosis (manual) Macrocytosis (manual) Spherocytes Tear Drop Cells Ovalocytes Sodium (132-148) mmol/L Potassium (3.6-5.2) mmol/L Chloride (98-107) mmol/L Carbon Dioxide (22-30) mmol/L Anion Gap (10-20) BUN (9-20) mg/dL Creatinine (0.8-1.5) MG/DL Est GFR ( Amer) Est GFR (Non-Af Amer) POC Glucose (mg/dL) 192 H (65-110) mg/dL Random Glucose (75-110) mg/dL Calcium (8.6-10.4) mg/dl Phosphorus (2.5-4.5) mg/dL Magnesium (1.6-2.3) mg/dL Total Bilirubin (0.2-1.3) mg/dL AST (17-59) U/L ALT (21-72) U/L Alkaline Phosphatase (38-126) U/L Total Protein (6.3-8.3) g/dL Albumin (3.5-5.0) g/dL Globulin (2.2-3.9) gm/dL Albumin/Globulin Ratio (1.0-2.1) Procalcitonin 3.27 H (0.19-0.49) NG/ML Random Vancomycin ug/mL Laboratory Results - last 24 hr 08/26/17 08/26/17 08/27/17 13:20 17:54 00:30 WBC RBC Hgb Hct MCV MCH MCHC RDW Plt Count MPV Neut % (Auto) Lymph % (Auto) [place] % (Auto) Eos % (Auto) Baso % (Auto) Neut # Lymph # [place] # Eos # Baso # Neutrophils % (Manual) Lymphocytes % (Manual) Monocytes % (Manual) Platelet Estimate Large Platelets Polychromasia Hypochromasia (manual) Poikilocytosis (manual Anisocytosis (manual) Microcytosis (manual) Macrocytosis (manual) Spherocytes Tear Drop Cells Ovalocytes Sodium Potassium Chloride Carbon Dioxide Anion Gap BUN Creatinine Est GFR ( Amer) Est GFR (Non-Af Amer) POC Glucose (mg/dL) 192 H 253 H Random Glucose Calcium Phosphorus Magnesium Total Bilirubin AST ALT Alkaline Phosphatase Total Protein Albumin Globulin Albumin/Globulin Ratio Procalcitonin 3.27 H Random Vancomycin 08/27/17 08/27/17 08/27/17 06:43 06:43 06:43 WBC 18.0 H RBC 3.79 L Hgb 9.0 L Hct 28.2 L MCV 74.5 L MCH 23.8 L MCHC 31.9 L RDW 22.1 H Plt Count 502 H D MPV 7.9 Neut % (Auto) 82.9 H Lymph % (Auto) 7.0 L [place] % (Auto) 7.6 Eos % (Auto) 1.7 Baso % (Auto) 0.8 Neut # 14.9 H Lymph # 1.3 [place] # 1.4 H Eos # 0.3 Baso # 0.1 Neutrophils % (Manual) 92 H Lymphocytes % (Manual) 4 L Monocytes % (Manual) 4 Platelet Estimate Increased H Large Platelets Present Polychromasia Slight Hypochromasia (manual) Slight Poikilocytosis (manual Slight Anisocytosis (manual) Moderate Microcytosis (manual) Moderate Macrocytosis (manual) Slight Spherocytes Slight Tear Drop Cells Slight Ovalocytes Slight Sodium 133 Potassium 4.6 Chloride 92 L Carbon Dioxide 22 Anion Gap 24 H BUN 67 H Creatinine 5.2 H Est GFR ( Amer) 13 Est GFR (Non-Af Amer) 11 POC Glucose (mg/dL) Random Glucose 231 H Calcium 8.2 L Phosphorus 8.6 H Magnesium 2.6 H Total Bilirubin 0.9 AST 119 H D ALT 89 H D Alkaline Phosphatase 194 H D Total Protein 7.2 Albumin 3.2 L Globulin 4.0 H Albumin/Globulin Ratio 0.8 L Procalcitonin Random Vancomycin 13.51 08/27/17 08/27/17 06:56 11:18 WBC RBC Hgb Hct MCV MCH MCHC RDW Plt Count MPV Neut % (Auto) Lymph % (Auto) [place] % (Auto) Eos % (Auto) Baso % (Auto) Neut # Lymph # [place] # Eos # Baso # Neutrophils % (Manual) Lymphocytes % (Manual) Monocytes % (Manual) Platelet Estimate Large Platelets Polychromasia Hypochromasia (manual) Poikilocytosis (manual Anisocytosis (manual) Microcytosis (manual) Macrocytosis (manual) Spherocytes Tear Drop Cells Ovalocytes Sodium Potassium Chloride Carbon Dioxide Anion Gap BUN Creatinine Est GFR ( Amer) Est GFR (Non-Af Amer) POC Glucose (mg/dL) 267 H 271 H Random Glucose Calcium Phosphorus Magnesium Total Bilirubin AST ALT Alkaline Phosphatase Total Protein Albumin Globulin Albumin/Globulin Ratio Procalcitonin Random Vancomycin Fingerstick Blood Sugar Results: 286 Critical Care Progress Note - Nutrition Nutrition: Nutrition Category Date Time Status NPO Diet [DIET] Diets 08/21/17 Dinner Active
[2017-08-27] MEDS: Midazolam 50 mg/10 ml 100 MG in Sodium Chloride 0.9% 80 ML IV SCH (16:01)
[2017-08-27 19:20] LABS: RBC URINE 50 /hpf (0-3); TRANSITIONAL EPITHIAL < 1 /hpf (0-3); URINE BACTERIA MANY (<OCC); URINE BILIRUBIN NEGATIVE (NEGATIVE); URINE BLOOD 3+ (NEGATIVE); URINE COLOR Amber (YELLOW); URINE GLUCOSE (UA) NORMAL (Normal); URINE KETONE TRACE mg/dL (NEGATIVE); URINE LEUKOCYTE ESTERASE 3+ Leu/uL (Negative); URINE PROTEIN 2+ mg/dL (NEGATIVE); URINE UROBILINOGEN NORMAL mg/dL (0.2-1.0); WBC CLUMPS MANY /hpf; WBC URINE 71 /hpf (0-5)
--- NOTE | 2017-08-27 20:24 | CP.PCM.PN ---
Subjective - Date & Time of Evaluation Date of Evaluation: 08/27/17 Time of Evaluation: 15:30 - Subjective Subjective: Subjective Patient seen and evaluated On Trach and ventilator awake and responsive Physical Examination - Constitutional Appears: Non-toxic, No Acute Distress - Head Exam Head Exam: NORMAL INSPECTION - Eye Exam Eye Exam: EOMI - ENT Exam ENT Exam: Mucous Membranes Dry - Respiratory Exam Respiratory Exam: Decreased Breath Sounds, NORMAL BREATHING PATTERN. absent: Rales, Rhonchi, Wheezes, Respiratory Distress Additional comments: on trach s/p vent - Cardiovascular Exam Cardiovascular Exam: REGULAR RHYTHM, +S1, +S2 - GI/Abdominal Exam GI & Abdominal Exam: Distended, Soft, Normal Bowel Sounds. absent: Firm, Guarding, Rigid, Tenderness, Rebound - Extremities Exam Extremities Exam: absent: Pedal Edema, Tenderness Additional comments: prevalon boots b/l - Neurological Exam Neurological Exam: Alert, Awake, Oriented x3 - Psychiatric Exam Psychiatric exam: Normal Affect, Normal Mood - Skin Skin Exam: Dry, Normal Color, Warm Objective - Vital Signs/Intake and Output Vital Signs (last 24 hours): Temp Pulse Resp BP Pulse Ox 97.7 F 84 22 92/46 L 95 08/27/17 16:00 08/27/17 18:10 08/27/17 18:10 08/27/17 18:10 08/27/17 18:10 Intake and Output: 08/27/17 08/28/17 18:59 06:59 Intake Total 900 Output Total 201 Balance 699 - Medications Medications: Current Medications Albuterol/Ipratropium (Duoneb 3 Mg/0.5 Mg (3 Ml) Ud) 3 ml INH RQ4 [facility] Last Admin: 08/27/17 19:39 Dose: 3 ml Amiodarone HCl (Cordarone) 200 mg PO DAILY [facility] Apixaban (Eliquis) 2.5 mg PO BID [facility] Last Admin: 08/27/17 17:25 Dose: 2.5 mg Aspirin (Aspirin Chewable) 81 mg PO DAILY [facility] Last Admin: 08/27/17 10:01 Dose: 81 mg Calcium Acetate (Phoslo) 1,334 mg GT TID [facility] Last Admin: 08/27/17 17:25 Dose: 1,334 mg Epoetin Chencho (Procrit) 10,000 unit IV MWF [facility] Last Admin: 08/26/17 14:05 Dose: 10,000 unit Famotidine (Pepcid) 20 mg PO DAILY [facility] Last Admin: 08/27/17 10:02 Dose: 20 mg Cefepime HCl 1 gm/ Dextrose 50 mls @ 100 mls/hr IVPB Q24H [facility] Last Admin: 08/27/17 11:08 Dose: 100 mls/hr Midazolam HCl 100 mg/ Sodium (Chloride) 100 mls @ 1.67 mls/hr IV .Q24H LUIS FERNANDO; 0.02 MG/KG/HR PRN Reason: Protocol Last Admin: 08/27/17 16:01 Dose: Not Given Insulin Aspart (Novolog) 0 unit SC Q6 [facility] FERNANDO PRN Reason: Protocol Last Admin: 08/27/17 17:51 Dose: 3 unit Insulin Detemir (Levemir) 16 unit SC Q12H [facility] Last Admin: 08/27/17 20:16 Dose: 16 unit Lactobacillus Acidophilus (Bacid Acidophilus) 1 cap PO BID [facility] Last Admin: 08/27/17 17:25 Dose: 1 cap Lorazepam (Ativan) 1 mg IVP Q2H PRN PRN Reason: Anxiety Last Admin: 08/26/17 11:10 Dose: 1 mg Metoprolol Tartrate (Lopressor) 50 mg PO BID [facility] Last Admin: 08/27/17 18:35 Dose: 50 mg Rosuvastatin Calcium (Crestor) 10 mg PO HS [facility] Last Admin: 08/26/17 22:41 Dose: 10 mg - Labs Labs: 08/27/17 06:43 08/27/17 06:43 PT 13.9 SECONDS (9.7-12.2) H 08/24/17 06:08 INR 1.2 08/24/17 06:08 APTT 55 SECONDS (21-34) H D 08/17/17 06:12 Assessment and Plan - Assessment and Plan (Free Text) Assessment: Assessment and Plan - Assessment and Plan (Free Text) Assessment: (1) Acute Respiratory Failure ARDS Cardiac Arrest Pulmonary Edema Nonstemi Assessment and Plan: * Code Blue on 08/10: asystole, cardiopulmonary resuscitative measures initiated , requiring 3 epis, bicarbonate, ROSC achieved and intubated and brought to the ICU for further management; Patient in the ICU from 08/10 until present. * Pulmonary: Dr Mena (Dr. Jeffers covering until 09/04/17)-->help appreciated * Cardiology: Dr. Cortés on board-->help appreciated * GI (Dr. Wills) on board-->help appreciated * S/P Tracheostomy 08/22 * S/P Peg tube placement 08/25 * s/p insertion of right posterior chest tube 08/19-->removed 08/24/17 * There was consideration for possible thoracentesis of left side pleural effusion, evaluated by IR, there is no fluid to drain per Dr. Gross * Chest xray (08/26): right arm PICC is seen with the tip of distal subclavian vein. PICC may be used, * Restart Aspirin 81mg PO daily * Patient does not need Plavix at this time * Recommend for Eliquis 2.5mg PO BID for atrial flutter * 08/27: patient is pending LTAC, he went eventually need cardiac catherization when he has stabilized. Held statin secondary to elevated LFTs. Discussed with Dr. Cortés, lowered Amiodarone 200mg PO daily (2) Abnormal Stress Test History of AICD History of Coronary Artery Disease Assessment and Plan: * Cardiology (Dr. Cortés) on board-->help appreciated * TSH: 1.16; T4: 1.53 * Echocardiogram (08/08/17): left ventricle systolic function is severely impaired. EF: 25-30%; global hypokinesis of left ventricle mild aortic regurgitation. Mitral regurgitation is moderate. Moderate-severe pulmonary hypertension * Plan was for cardiac catheterization; delayed due to acute renal failure; Attempted gentle hydration and mucomyst on 08/09 to optimize prior to cath * On 08/10, patient was in asystole, ACLS protocol, ROSC achieved, intubated and transfered to the ICU. Patient in acute pulmonary edema. * Patient hospitalized in the ICU since 08/10/17 to present. * Medications: * Aspirin 81mg PO daily * Plavix d/c by cardiology * Lopressor 50mg PO bid * d/c Crestor 10mg POqHS secondary to rise in LFTS 08/27--->monitor LFTs daily * ARB d/c secondary to acute renal failure * 08/27: patient is pending LTAC, he went eventually need cardiac catherization when he has stabilized. Held statin secondary to elevated LFTs. Discussed with Dr. Cortés, lowered Amiodarone 200mg PO daily (3) Atrial flutter Assessment and Plan: * Refractory to Lopressor/Cardizem IVP * Eliquis 2.5mg PO bid * Amiodarone bolus-->Amiodarine drip on 08/24-->converted to Amiodarone 200mg PO TID on 08/26 * 08/27: Discussed with Dr. Cortés, will lower Amiodarone 200mg PO daily and monitor LFTs. Statin held and tylenol d/c Status: Acute (4) Acute on Chronic Systolic CHF exacerbation Assessment and Plan: * Transferred to the ICU on 08/10 following cardiac arrest and intubation. * Echocardiogram (08/08/17): left ventricular systolic function is severely impaired. EF: 25-30%; global hypokinesis of left ventricle mild aortic regurgitation. Mitral regurgitation is moderate. Moderate-severe pulmonary hypertension * Medications: * Aspirin 81mg PO daily * Plavix d/c by cardiology * Lopressor 50mg PO bid * d/c Crestor 10mg POqHS on 08/27 secondary to rise in LFTs * ARB d/c secondary to acute renal failure Status: Acute (5) Leukocytosis Assessment and Plan: * Patient's white count rising * Procalcitonin elevated * Blood cultures (08/26): no growth After 24hours X2 * UA and urine culture (08/27): pending * Patient has elevated LFTs-->did not start anti-fungal in light of LFTs Status: Acute (6) Pneumonia Assessment and Plan: * Pulmonary (Dr. Mena) on board-->help appreciated; Dr. Jeffers covering while Dr. Mena away * Infectious Disease (Dr. Lawrence)-->help appreciated * Chest xray (08/26): right arm PICC is seen with the tip of distal subclavian vein. PICC may be used * Rapid A strep, Influenza A and B studies, Urine Legionella, Mycoplasma studies = Negative * Florastor 250mg PO bid * 08/07/17: +Strep Pneumoniae in the urine * Meropenem 500mg IV Q 8 hours (08/14/17 through 08/18/17) and Zosyn 2.25 mg IV Q6H (08/13/17 through 08/18/17) * Cefepime 1 gm IV Q24H (08/19/17)-->DAY 8 * s/p right posterior chest tube 08/19-08/24 * Sputum Culture 08/19/17 shows No growth * Pleural fluid 08/19/17: No growth Status: Acute (7) HTN (hypertension) Assessment and Plan: * Lopressor 50mg PO bid Status: Chronic (8) CKD (chronic kidney disease) on Dialysis Assessment and Plan: * Dr. Miranda (nephrology) consulted on the case * Hx of CKD-->Started on dialysis 08/15/17 * Kurtis catheter placed and removed 08/22 * s/p Permcath 08/22 * Patient is on dialysis; oliguric * Phoslo 1334mg GT TID * Epoetin 10,000 unit IV MWF Status: Acute (9) Diabetes mellitus Assessment and Plan: * Accuchecks Q6H * HgbA1c 8.4 * Levemir 16 units subq12 * Start peg feedings on 08/26/17 * Nepro-->20 ml/hr w goal: 50 ml/h (10) HLD (hyperlipidemia) Assessment and Plan: * 08/27: held Crestor 10 mg PO HS secondary to rise in LFTs Status: Chronic (11) Anemia Assessment and Plan: * Heme-oncology (Dr. Giles bender) on board-->help appreciated * Likely iron deficiency anemia based on prior admissions * Ferritin 27.4, Iron 22, TIBC 322, % Saturation 7 * Ferric Sodium Gluconate 125mg IVPB daily (active 08/08-08/16) * Procrit 10,000 units M-W- * Monitor Hgb/Hct: stable Status: Chronic (12) History of DVT (deep vein thrombosis) Assessment and Plan: * Patient was previously on Eliquis for a prior history of DVT. * Repeat dopplers 08/09/17 are negative for DVT * Off Heparin Drip 08/17/17 * Start Eliquis 2.5mg PO BID for atrial flutter and history of DVT Status: Chronic (13) UTI Assessment and Plan: * Infectious disease (Dr. Lawrence) on board-->help appreciated * Exchange jaquez out and repeat urine cultures * Urine Culture 08/12/17 showed Gram Negative Rods: NO identification and NO sensitivities were performed * Meropenem 500mg IV Q 12hours (active since 08/14/17 through 08/18/17) to cover for UTI per ID * Repeat Urine Culture 08/18/17 shows NO growth * 08/25: reculture in light of leukocytosis * 08/27: pending urine studies Status: Chronic (14) Confusion; Alzheimer's Dementia Assessment and Plan: * Per daughter, patient has been getting bouts of confusion over the past year but appears at baseline. Patient has not seen formal neurology as outpatient per daughter. Per , prior to event, noted Alzheimers' disease dx one year ago * CT head w/o contrast (08/10/17):acute os subacute lacune infarct is not excluded in the left basal ganglia inferiorly with definitive chronic lacune identified in the right basal ganglia superiorly. No acute or subacute lobar brain infarction is appreciable by standard CT criteria. Mild age-related neuro degenerative changes are identifed. No acute intracranial hemorrhage or mass is identified throughout * 08/26: Off Sedation-->patient moves all extremities randomly but does not follow directions * 08/27: off sedation-->patient is very calm, smiles at his Status: Chronic (15) Unstageable sacral ulcer Assessment and Plan: * Wound care on board * WOUND CARE NOTE (08/26)-->Pt with a sacral unstageable being treated with medihoney. No changes to dimensions at this time. Also, pt favoring Left side of head and has developed a 1x1 serous filled blister on his left ear. Primary nurse placed duoderm on the ear. Wound care nurse left duoderm in place , and recommends leaving it on until it falls off on its own. Pt has been NPO for several days, new peg inserted yesterday. Will be starting glucerna tube feedings later today. Albumin 3.3 * Turn q 2 hours * medihoney Status: Acute (16) Elevated LFTs Assessment and Plan: * 08/27: Yina * Discussed with cardiology-->changed amiodarone 200mg PO tid to amiodaron 200mg PO daily * D/C tylenol * Held Statin * patient is also on Rocephin to cover for pneumonia * Will not start antifungal * Will need daily LFTs Status: Acute (17) Prophylactic measure Assessment and Plan: * Pepcid 20mg PO daily * Start Eliquis 2.5mg PO BID * s/p peg placement 08/25 * s/p trachesostomy 08/22 * s/p Permcath placement 08/22 removal Kurtis catheter * s/p right posterior chest tube 08/19-->removed 08/24 * s/p PICC 08/26 * (Jovita Serrano): -->number provided to the nurse- ->consented for peg placement; discussed about LTAC 08/26 * Spoke with Dr. Pickard, MARIAJOSE regarding patient's hospitalization up until this point 08/26 Disposition: * Patient restarted on Aspirin and Eliquis. * Patient has no drainage for IR to place pigtail for left pleural effusion * Patient's white count uptrending-->f/u repeat cultures (08/26) * Patient is for LTAC; discussed with case management who will speak with the -->pending approval * s/p PICC line by IR * Monitor daily LFTs-->changed amiodarone, d/c tylenol, held statin on 08/27--> continue to monitor
[2017-08-28] MEDS: (Novolog) Insulin Aspart, Recombinant 100 u/ml 10 ml vial SC SCH ×4 (00:34→18:17)
[2017-08-28] MEDS: Albuterol-Ipratrop 3 mg / 0.5 (3 ml) UD INH SCH ×7 (00:47→23:55)
[2017-08-28 06:57] LABS: BASO # 0.1 K/uL (0.0-0.2); BASO % 0.7 % (0.0-2.0); EOS # 0.5 K/uL (0.0-0.7); EOS % 3.2 % (0.0-4.0); HEMATOCRIT 28.4 % (35.0-51.0); LYMPH # 1.1 K/uL (1.0-4.3); MEAN CELL VOLUME 75.1 fL (80.0-94.0); MEAN CORPUSCULAR HEMOGLOBIN 23.4 pg (27.0-31.0); MEAN CORPUSCULAR HGB CONC 31.2 g/dL (33.0-37.0); MEAN PLATELET VOLUME 8.5 fL (7.2-11.7); MONO % 6.8 % (0.0-10.0); PLATELET COUNT 444 K/uL (130-400); RED CELL DISTRIBUTION WIDTH 22.4 % (11.5-14.5); WHITE BLOOD COUNT 15.3 K/uL (4.8-10.8)
[2017-08-28 07:05] LABS: POTASSIUM 4.4 mmol/L (3.6-5.2)
[2017-08-28 07:07] LABS: BILIRUBIN,TOTAL 0.6 mg/dL (0.2-1.3)
[2017-08-28 07:08] LABS: ALB/GLOB RATIO 0.8 (1.0-2.1); PHOSPHOROUS 9.9 mg/dL (2.5-4.5); TOTAL PROTEIN 6.9 g/dL (6.3-8.3)
[2017-08-28 07:09] LABS: CALCIUM 8.5 mg/dl (8.6-10.4); MAGNESIUM 2.9 mg/dL (1.6-2.3)
[2017-08-28] MEDS: Insulin Detemir 100 units/ml Vial (Levemir) SC SCH ×2 (08:26→20:47)
[2017-08-28 08:32] LABS: EOSINOPHIL 3 % (0-4); TOTAL CELLS COUNTED 100
[2017-08-28 08:33] LABS: NEUTROPHIL 82 % (50-75)
[2017-08-28 08:34] LABS: SPHEROCYTES SLIGHT
[2017-08-28 08:36] LABS: LARGE PLATELETS PRESENT
--- NOTE | 2017-08-28 08:54 | CP.PCM.PN ---
Subjective - Date & Time of Evaluation Date of Evaluation: 08/28/17 Time of Evaluation: 08:40 - Subjective Subjective: Medical Attending Note: Patient seen, examined. patient is sitting upright. Awake. Does not speak but will turn his head towards you. Family not present at bedside this morning. Unable to ROS clinical condition. Objective - Vital Signs/Intake and Output Vital Signs (last 24 hours): Temp Pulse Resp BP Pulse Ox 98 F 81 15 124/48 L 94 L 08/28/17 04:00 08/28/17 07:10 08/28/17 07:10 08/28/17 07:10 08/28/17 07:10 Intake and Output: 08/28/17 08/28/17 06:59 18:59 Intake Total 600 50 Output Total 0 0 Balance 600 50 - Medications Medications: Current Medications Albuterol/Ipratropium (Duoneb 3 Mg/0.5 Mg (3 Ml) Ud) 3 ml INH RQ4 [facility] Last Admin: 08/28/17 08:06 Dose: 3 ml Amiodarone HCl (Cordarone) 200 mg PO DAILY [facility] Apixaban (Eliquis) 2.5 mg PO BID [facility] Last Admin: 08/27/17 17:25 Dose: 2.5 mg Aspirin (Aspirin Chewable) 81 mg PO DAILY [facility] Last Admin: 08/27/17 10:01 Dose: 81 mg Calcium Acetate (Phoslo) 1,334 mg GT TID [facility] Last Admin: 08/27/17 17:25 Dose: 1,334 mg Epoetin Chencho (Procrit) 10,000 unit IV MWF [facility] Last Admin: 08/26/17 14:05 Dose: 10,000 unit Famotidine (Pepcid) 20 mg PO DAILY [facility] Last Admin: 08/27/17 10:02 Dose: 20 mg Cefepime HCl 1 gm/ Dextrose 50 mls @ 100 mls/hr IVPB Q24H [facility] Last Admin: 08/27/17 11:08 Dose: 100 mls/hr Midazolam HCl 100 mg/ Sodium (Chloride) 100 mls @ 1.67 mls/hr IV .Q24H [facility]; 0.02 MG/KG/HR PRN Reason: Protocol Last Admin: 08/27/17 16:01 Dose: Not Given Insulin Aspart (Novolog) 0 unit SC Q6 [facility] PRN Reason: Protocol Last Admin: 08/28/17 05:40 Dose: 2 unit Insulin Detemir (Levemir) 16 unit SC Q12H [facility] Last Admin: 08/28/17 08:26 Dose: 16 unit Lactobacillus Acidophilus (Bacid Acidophilus) 1 cap PO BID [facility] Last Admin: 08/27/17 17:25 Dose: 1 cap Lorazepam (Ativan) 1 mg IVP Q2H PRN PRN Reason: Anxiety Last Admin: 08/26/17 11:10 Dose: 1 mg Metoprolol Tartrate (Lopressor) 50 mg PO BID [facility] Last Admin: 08/27/17 18:35 Dose: 50 mg Rosuvastatin Calcium (Crestor) 10 mg PO HS [facility] Last Admin: 08/26/17 22:41 Dose: 10 mg - Labs Labs: 08/28/17 06:49 08/28/17 06:49 PT 13.9 SECONDS (9.7-12.2) H 08/24/17 06:08 INR 1.2 08/24/17 06:08 APTT 55 SECONDS (21-34) H D 08/17/17 06:12 - Constitutional Appears: Non-toxic, No Acute Distress, Chronically Ill - Head Exam Head Exam: NORMAL INSPECTION - Eye Exam Eye Exam: EOMI - ENT Exam ENT Exam: Mucous Membranes Moist - Respiratory Exam Respiratory Exam: NORMAL BREATHING PATTERN. absent: Decreased Breath Sounds, Rales, Respiratory Distress - Cardiovascular Exam Cardiovascular Exam: REGULAR RHYTHM, +S1, +S2 - GI/Abdominal Exam GI & Abdominal Exam: Soft, Normal Bowel Sounds. absent: Distended, Firm, Guarding, Rigid, Tenderness, Rebound - Extremities Exam Extremities Exam: absent: Pedal Edema, Tenderness - Neurological Exam Neurological Exam: Alert, Awake - Psychiatric Exam Psychiatric exam: Normal Affect, Normal Mood - Skin Skin Exam: Dry, Normal Color, Warm Additional comments: unable to view sacral ulcer Assessment and Plan - Assessment and Plan (Free Text) Assessment: (1) Acute Respiratory Failure ARDS Cardiac Arrest Pulmonary Edema Nonstemi Assessment and Plan: * Code Blue on 08/10: asystole, cardiopulmonary resuscitative measures initiated , requiring 3 epis, bicarbonate, ROSC achieved and intubated and brought to the ICU for further management; Patient in the ICU from 08/10 until present. * Pulmonary: Dr Mena (Dr. Jeffers covering until 09/04/17)-->help appreciated * Cardiology: Dr. Cortés on board-->help appreciated * GI (Dr. Wills) on board-->help appreciated * S/P Tracheostomy 08/22 * S/P Peg tube placement 08/25 * s/p insertion of right posterior chest tube 08/19-->removed 08/24/17 * There was consideration for possible thoracentesis of left side pleural effusion, evaluated by IR, there is no fluid to drain per Dr. Gross * Chest xray (08/26): right arm PICC is seen with the tip of distal subclavian vein. PICC may be used * Per cardiology, * Restart Aspirin 81mg PO daily * Patient does not need Plavix at this time * Recommend for Eliquis 2.5mg PO BID for atrial flutter * 08/27: patient is pending LTAC, he went eventually need cardiac catherization when he has stabilized. Held statin secondary to elevated LFTs. Discussed with Dr. Cortés, lowered Amiodarone 200mg PO daily * 08/28: patient is pending LTAC, he went eventually need cardiac catherization when he has stabilized. Liver function tests improving (2) Abnormal Stress Test History of AICD History of Coronary Artery Disease Assessment and Plan: * Cardiology (Dr. Cortés) on board-->help appreciated * TSH: 1.16; T4: 1.53 * Echocardiogram (08/08/17): left ventricle systolic function is severely impaired. EF: 25-30%; global hypokinesis of left ventricle mild aortic regurgitation. Mitral regurgitation is moderate. Moderate-severe pulmonary hypertension * Plan was for cardiac catheterization; delayed due to acute renal failure; Attempted gentle hydration and mucomyst on 08/09 to optimize prior to cath * On 08/10, patient was in asystole, ACLS protocol, ROSC achieved, intubated and transfered to the ICU. Patient in acute pulmonary edema. * Patient hospitalized in the ICU since 08/10/17 to present. * Medications: * Aspirin 81mg PO daily * Plavix d/c by cardiology * Lopressor 50mg PO bid * d/c Crestor 10mg POqHS secondary to rise in LFTS 08/27--->monitor LFTs daily * ARB d/c secondary to acute renal failure * 08/27: patient is pending LTAC, he went eventually need cardiac catherization when he has stabilized. Held statin secondary to elevated LFTs. Discussed with Dr. Cortés, lowered Amiodarone 200mg PO daily * 08/28: patient is pending LTAC, he went eventually need cardiac catherization when he has stabilized. Liver function tests improving. Statin is on hold (3) Atrial flutter Assessment and Plan: * Cardiology (Dr. Cortés) on board-->help appreciated * Refractory to Lopressor/Cardizem IVP * Eliquis 2.5mg PO bid * Amiodarone bolus-->Amiodarine drip on 08/24-->converted to Amiodarone 200mg PO TID on 08/26 * 08/27: Discussed with Dr. Cortés, will lower Amiodarone 200mg PO daily and monitor LFTs. Statin held and tylenol d/c * 08/28: patient is pending LTAC, he went eventually need cardiac catherization when he has stabilized. Liver function tests improving. Statin is on hold Status: Acute (4) Acute on Chronic Systolic CHF exacerbation Assessment and Plan: * Cardiology (Dr. Cortés) on board-->help appreciated * Transferred to the ICU on 08/10 following cardiac arrest and intubation. * Echocardiogram (08/08/17): left ventricular systolic function is severely impaired. EF: 25-30%; global hypokinesis of left ventricle mild aortic regurgitation. Mitral regurgitation is moderate. Moderate-severe pulmonary hypertension * Medications: * Aspirin 81mg PO daily * Plavix d/c by cardiology * Lopressor 50mg PO bid * d/c Crestor 10mg POqHS on 08/27 secondary to rise in LFTs * ARB d/c secondary to acute renal failure Status: Acute (5) Leukocytosis Assessment and Plan: * Patient's white count rising * Procalcitonin elevated * Blood cultures (08/26): no growth After 48hours X2 * UA and urine culture (08/27): pending * Patient has elevated LFTs-->did not start anti-fungal in light of LFTs Status: Acute (6) Pneumonia Assessment and Plan: * Pulmonary (Dr. Mena) on board-->help appreciated; Dr. Jeffers covering while Dr. Mena away * Infectious Disease (Dr. Lawrence)-->help appreciated * Chest xray (08/26): right arm PICC is seen with the tip of distal subclavian vein. PICC may be used * Rapid A strep, Influenza A and B studies, Urine Legionella, Mycoplasma studies = Negative * Florastor 250mg PO bid * 08/07/17: +Strep Pneumoniae in the urine * Meropenem 500mg IV Q 8 hours (08/14/17 through 08/18/17) and Zosyn 2.25 mg IV Q6H (08/13/17 through 08/18/17) * Cefepime 1 gm IV Q24H (08/19/17)-->DAY 8 * s/p right posterior chest tube 08/19-08/24 * Sputum Culture 08/19/17 shows No growth * Pleural fluid 08/19/17: No growth Status: Acute (7) HTN (hypertension) Assessment and Plan: * Lopressor 50mg PO bid Status: Chronic (8) CKD (chronic kidney disease) on Dialysis Assessment and Plan: * Dr. Miranda (nephrology) consulted on the case * Hx of CKD-->Started on dialysis 08/15/17 * Kurtis catheter placed and removed 08/22 * s/p Permcath 08/22 * Patient is on dialysis; oliguric * Phoslo 1334mg GT TID * Epoetin 10,000 unit IV MWF Status: Acute (9) Diabetes mellitus Assessment and Plan: * Accuchecks Q6H * HgbA1c 8.4 * Levemir 16 units subq12 * Start peg feedings on 08/26/17 * Nepro-->20 ml/hr w goal: 50 ml/h (10) HLD (hyperlipidemia) Assessment and Plan: * 08/27: held Crestor 10 mg PO HS secondary to rise in LFTs * 08/28: Liver function tests improving; waiting to restart statin Status: Chronic (11) Anemia Assessment and Plan: * Heme-oncology (Dr. Giles bender) on board-->help appreciated * Likely iron deficiency anemia based on prior admissions * Ferritin 27.4, Iron 22, TIBC 322, % Saturation 7 * Ferric Sodium Gluconate 125mg IVPB daily (active 08/08-08/16) * Procrit 10,000 units M-W-F * Monitor Hgb/Hct: stable Status: Chronic (12) History of DVT (deep vein thrombosis) Assessment and Plan: * Patient was previously on Eliquis for a prior history of DVT. * Repeat dopplers 08/09/17 are negative for DVT * Off Heparin Drip 08/17/17 * Start Eliquis 2.5mg PO BID for atrial flutter and history of DVT Status: Chronic (13) UTI Assessment and Plan: * Infectious disease (Dr. Lawrence) on board-->help appreciated * Exchange jaquez out and repeat urine cultures * Urine Culture 08/12/17 showed Gram Negative Rods: NO identification and NO sensitivities were performed * Meropenem 500mg IV Q 12hours (active since 08/14/17 through 08/18/17) to cover for UTI per ID * Repeat Urine Culture 08/18/17 shows NO growth * 08/25: reculture in light of leukocytosis * 08/27: pending urine studies Status: Chronic (14) Confusion; Alzheimer's Dementia Assessment and Plan: * Per daughter, patient has been getting bouts of confusion over the past year but appears at baseline. Patient has not seen formal neurology as outpatient per daughter. Per , prior to event, noted Alzheimers' disease dx one year ago * CT head w/o contrast (08/10/17):acute os subacute lacune infarct is not excluded in the left basal ganglia inferiorly with definitive chronic lacune identified in the right basal ganglia superiorly. No acute or subacute lobar brain infarction is appreciable by standard CT criteria. Mild age-related neuro degenerative changes are identifed. No acute intracranial hemorrhage or mass is identified throughout * 08/26: Off Sedation-->patient moves all extremities randomly but does not follow directions * 08/27: off sedation-->patient is very calm, smiles at his * 08/28: off sedation-->patient is very calm, turns head towards me Status: Chronic (15) Unstageable sacral ulcer Assessment and Plan: * Wound care on board * WOUND CARE NOTE (08/26)-->Pt with a sacral unstageable being treated with medihoney. No changes to dimensions at this time. Also, pt favoring Left side of head and has developed a 1x1 serous filled blister on his left ear. Primary nurse placed duoderm on the ear. Wound care nurse left duoderm in place , and recommends leaving it on until it falls off on its own. Pt has been NPO for several days, new peg inserted yesterday. Will be starting glucerna tube feedings later today. Albumin 3.3 * Turn q 2 hours * [facility] Status: Acute (16) Elevated LFTs Assessment and Plan: * 08/27: Yina * Discussed with cardiology-->changed amiodarone 200mg PO tid to amiodaron 200mg PO daily * D/C tylenol * Held Statin * patient is also on Rocephin to cover for pneumonia * Will not start antifungal * 08/28: starting to down trending since change in amiodarone dose; awaiting to restart statin Status: Acute (17) Prophylactic measure Assessment and Plan: * Pepcid 20mg PO daily * Start Eliquis 2.5mg PO BID * s/p peg placement 08/25 * s/p trachesostomy 08/22 * s/p Permcath placement 08/22 removal Kurtis catheter * s/p right posterior chest tube 08/19-->removed 08/24 * s/p PICC 08/26 * (Jovita Serrano): -->number provided to the nurse- ->consented for peg placement; discussed about LTAC 08/26 * Spoke with Dr. Pickard, PMD regarding patient's hospitalization up until this point 08/26 Disposition: * Patient restarted on Aspirin and Eliquis. * Patient has no drainage for IR to place pigtail for left pleural effusion * Patient's white count downtrending-->f/u repeat cultures (08/26) * s/p PICC line by IR * Monitor daily LFTs-->changed amiodarone, d/c tylenol, held statin on 08/27--> continue to monitor * Patient is for LTAC; discussed with case management who will speak with the -->pending approval
[2017-08-28] MEDS: Lactobacillus Acidophilus 500 MU Cap PO SCH ×2 (09:24→17:41)
--- NOTE | 2017-08-28 16:46 | CP.PCM.PN ---
Subjective - Date & Time of Evaluation Date of Evaluation: 08/28/17 Time of Evaluation: 10:30 - Subjective Subjective: No events, patient is responsive, tracks people, in no distress, and tolerates CPAP on high pressure support Objective - Vital Signs/Intake and Output Vital Signs (last 24 hours): Temp Pulse Resp BP Pulse Ox 98 F 81 15 124/48 L 94 L 08/28/17 04:00 08/28/17 07:10 08/28/17 07:10 08/28/17 07:10 08/28/17 07:10 Intake and Output: 08/28/17 08/28/17 06:59 18:59 Intake Total 600 50 Output Total 0 0 Balance 600 50 - Medications Medications: Current Medications Albuterol/Ipratropium (Duoneb 3 Mg/0.5 Mg (3 Ml) Ud) 3 ml INH RQ4 [facility] Last Admin: 08/28/17 11:14 Dose: 3 ml Amiodarone HCl (Cordarone) 200 mg PO DAILY [facility] Last Admin: 08/28/17 09:27 Dose: 200 mg Apixaban (Eliquis) 2.5 mg PO BID [facility] Last Admin: 08/28/17 09:28 Dose: 2.5 mg Aspirin (Aspirin Chewable) 81 mg PO DAILY [facility] Last Admin: 08/28/17 09:24 Dose: 81 mg Calcium Acetate (Phoslo) 1,334 mg GT TID [facility] Last Admin: 08/28/17 14:27 Dose: 1,334 mg Epoetin Chencho (Procrit) 10,000 unit IV MWF [facility] Last Admin: 08/26/17 14:05 Dose: 10,000 unit Famotidine (Pepcid) 20 mg PO DAILY [facility] Last Admin: 08/28/17 09:28 Dose: 20 mg Cefepime HCl 1 gm/ Dextrose 50 mls @ 100 mls/hr IVPB Q24H [facility] Last Admin: 08/28/17 12:16 Dose: 100 mls/hr Insulin Aspart (Novolog) 0 unit SC Q6 [facility] PRN Reason: Protocol Last Admin: 08/28/17 12:15 Dose: 4 unit Insulin Detemir (Levemir) 19 unit SC Q12H [facility] Lactobacillus Acidophilus (Bacid Acidophilus) 1 cap PO BID [facility] Last Admin: 08/28/17 09:24 Dose: 1 cap Lorazepam (Ativan) 1 mg IVP Q2H PRN PRN Reason: Anxiety Last Admin: 08/26/17 11:10 Dose: 1 mg Metoprolol Tartrate (Lopressor) 50 mg PO BID [facility] Last Admin: 08/28/17 09:28 Dose: 50 mg Rosuvastatin Calcium (Crestor) 10 mg PO HS [facility] Last Admin: 08/26/17 22:41 Dose: 10 mg - Labs Labs: 08/28/17 06:49 08/28/17 06:49 PT 13.9 SECONDS (9.7-12.2) H 08/24/17 06:08 INR 1.2 08/24/17 06:08 APTT 55 SECONDS (21-34) H D 08/17/17 06:12 - Additional Findings Additional findings: * KAYLA RENEE * Neck Supple, trache in place * CVS regular, sinus on tele * Chest reduced in basis * PA peg in place * Ext no 1+ edema * Skin edema as above * [employer] awake, track/follow people, recognizes family * Assessment and Plan - Assessment and Plan (Free Text) Assessment: * Vent dependent resp failure s/p trache * S/p PEG * PNA on cefepime * Aflutter now sinus on amiodarone, eliquis * Cardiomyopathy ? inschemic * ALIREZA in hospital now on HD will hence start ACEI * Sacral decub * Uncontrolled dm * Weakness, deconditioning Plan: * Supportive care * Prevent decubiti * LTAC eval * Started ACEI * Titrate insulin lantus increased to 19-0-19 from 16 units q12 * DVT prophylaxis with eliquis * See orders for detail
--- NOTE | 2017-08-28 21:39 | CP.PCM.PN ---
Subjective - Date & Time of Evaluation Date of Evaluation: 08/28/17 Time of Evaluation: 08:50 - Subjective Subjective: Patient seen and evaluated On Trach and ventilator Not in distress Physical Examination - Constitutional Appears: Non-toxic, No Acute Distress - Head Exam Head Exam: NORMAL INSPECTION - Eye Exam Eye Exam: EOMI - ENT Exam ENT Exam: Mucous Membranes Dry - Respiratory Exam Respiratory Exam: Decreased Breath Sounds, NORMAL BREATHING PATTERN. absent: Rales, Rhonchi, Wheezes, Respiratory Distress Additional comments: on trach s/p vent - Cardiovascular Exam Cardiovascular Exam: REGULAR RHYTHM, +S1, +S2 - GI/Abdominal Exam GI & Abdominal Exam: Distended, Soft, Normal Bowel Sounds. absent: Firm, Guarding, Rigid, Tenderness, Rebound - Extremities Exam Extremities Exam: absent: Pedal Edema, Tenderness Additional comments: prevalon boots b/l - Neurological Exam Neurological Exam: Alert, Awake, Oriented x3 - Psychiatric Exam Psychiatric exam: Normal Affect, Normal Mood - Skin Skin Exam: Dry, Normal Color, Warm Objective - Vital Signs/Intake and Output Vital Signs (last 24 hours): Temp Pulse Resp BP Pulse Ox 97.4 F L 85 12 108/45 L 99 08/28/17 20:00 08/28/17 21:10 08/28/17 21:10 08/28/17 21:10 08/28/17 21:10 Intake and Output: 08/28/17 08/29/17 18:59 06:59 Intake Total 600 Output Total 0 Balance 600 - Medications Medications: Current Medications Albuterol/Ipratropium (Duoneb 3 Mg/0.5 Mg (3 Ml) Ud) 3 ml INH RQ4 [facility] Last Admin: 08/28/17 20:40 Dose: 3 ml Amiodarone HCl (Cordarone) 200 mg PO DAILY [facility] Last Admin: 08/28/17 09:27 Dose: 200 mg Apixaban (Eliquis) 2.5 mg PO BID [facility] Last Admin: 08/28/17 19:02 Dose: 2.5 mg Aspirin (Aspirin Chewable) 81 mg PO DAILY [facility] Last Admin: 08/28/17 09:24 Dose: 81 mg Calcium Acetate (Phoslo) 1,334 mg GT TID [facility] Last Admin: 08/28/17 17:30 Dose: 1,334 mg Epoetin Chencho (Procrit) 10,000 unit IV MWF [facility] Last Admin: 08/26/17 14:05 Dose: 10,000 unit Famotidine (Pepcid) 20 mg PO DAILY [facility] Last Admin: 08/28/17 09:28 Dose: 20 mg Cefepime HCl 1 gm/ Dextrose 50 mls @ 100 mls/hr IVPB Q24H [facility] Last Admin: 08/28/17 12:16 Dose: 100 mls/hr Insulin Aspart (Novolog) 0 unit SC Q6 [facility] PRN Reason: Protocol Last Admin: 08/28/17 18:17 Dose: 3 unit Insulin Detemir (Levemir) 19 unit SC Q12H [facility] Last Admin: 08/28/17 20:47 Dose: 19 unit Lactobacillus Acidophilus (Bacid Acidophilus) 1 cap PO BID [facility] Last Admin: 08/28/17 17:41 Dose: 1 cap Lisinopril (Zestril) 5 mg PO DAILY [facility] Lorazepam (Ativan) 1 mg IVP Q2H PRN PRN Reason: Anxiety Last Admin: 08/26/17 11:10 Dose: 1 mg Metoprolol Tartrate (Lopressor) 50 mg PO BID [facility] Last Admin: 08/28/17 17:29 Dose: 50 mg Rosuvastatin Calcium (Crestor) 10 mg PO HS [facility] Last Admin: 08/26/17 22:41 Dose: 10 mg - Labs Labs: 08/28/17 06:49 08/28/17 06:49 PT 13.9 SECONDS (9.7-12.2) H 08/24/17 06:08 INR 1.2 08/24/17 06:08 APTT 55 SECONDS (21-34) H D 08/17/17 06:12 Assessment and Plan - Assessment and Plan (Free Text) Assessment: (1) Acute Respiratory Failure ARDS Cardiac Arrest Pulmonary Edema Nonstemi Assessment and Plan: * Code Blue on 08/10: asystole, cardiopulmonary resuscitative measures initiated , requiring 3 epis, bicarbonate, ROSC achieved and intubated and brought to the ICU for further management; Patient in the ICU from 08/10 until present. * Pulmonary: Dr Mena (Dr. Jeffers covering until 09/04/17)-->help appreciated * GI (Dr. Wills) on board-->help appreciated * S/P Tracheostomy 08/22 * S/P Peg tube placement 08/25 * s/p insertion of right posterior chest tube 08/19-->removed 08/24/17 * There was consideration for possible thoracentesis of left side pleural effusion, evaluated by IR, there is no fluid to drain per Dr. Gross * Chest xray (08/26): right arm PICC is seen with the tip of distal subclavian vein. PICC may be used, * Restart Aspirin 81mg PO daily * Patient does not need Plavix at this time * Recommend for Eliquis 2.5mg PO BID for atrial flutter * 08/27: patient is pending LTAC, he went eventually need cardiac catherization when he has stabilized. Held statin secondary to elevated LFTs. Discussed with Dr. Cortés, lowered Amiodarone 200mg PO daily (2) Abnormal Stress Test History of AICD History of Coronary Artery Disease Assessment and Plan: * TSH: 1.16; T4: 1.53 * Echocardiogram (08/08/17): left ventricle systolic function is severely impaired. EF: 25-30%; global hypokinesis of left ventricle mild aortic regurgitation. Mitral regurgitation is moderate. Moderate-severe pulmonary hypertension * Plan was for cardiac catheterization; delayed due to acute renal failure; Attempted gentle hydration and mucomyst on 08/09 to optimize prior to cath * On 08/10, patient was in asystole, ACLS protocol, ROSC achieved, intubated and transfered to the ICU. Patient in acute pulmonary edema. * Patient hospitalized in the ICU since 08/10/17 to present. * Medications: * Aspirin 81mg PO daily * Plavix d/c by cardiology * Lopressor 50mg PO bid * d/c Crestor 10mg POqHS secondary to rise in LFTS 08/27--->monitor LFTs daily * ARB d/c secondary to acute renal failure * 08/27: patient is pending LTAC, he went eventually need cardiac catherization when he has stabilized. Held statin secondary to elevated LFTs. Discussed with Dr. Cortés, lowered Amiodarone 200mg PO daily (3) Atrial flutter Assessment and Plan: * Refractory to Lopressor/Cardizem IVP * Eliquis 2.5mg PO bid * Amiodarone bolus-->Amiodarine drip on 08/24-->converted to Amiodarone 200mg PO TID on 08/26 will lower Amiodarone 200mg PO daily and monitor LFTs. Statin held and tylenol d/c Status: Acute (4) Acute on Chronic Systolic CHF exacerbation Assessment and Plan: * Transferred to the ICU on 08/10 following cardiac arrest and intubation. * Echocardiogram (08/08/17): left ventricular systolic function is severely impaired. EF: 25-30%; global hypokinesis of left ventricle mild aortic regurgitation. Mitral regurgitation is moderate. Moderate-severe pulmonary hypertension * Medications: * Aspirin 81mg PO daily * Plavix d/c by cardiology * Lopressor 50mg PO bid * d/c Crestor 10mg POqHS on 08/27 secondary to rise in LFTs * ARB d/c secondary to acute renal failure Status: Acute (5) Leukocytosis Assessment and Plan: * Patient's white count rising * Procalcitonin elevated * Blood cultures (08/26): no growth After 24hours X2 * UA and urine culture (08/27): pending * Patient has elevated LFTs-->did not start anti-fungal in light of LFTs Status: Acute (6) Pneumonia Assessment and Plan: * Pulmonary (Dr. Mena) on board-->help appreciated; Dr. Jeffers covering while Dr. Mena away * Infectious Disease (Dr. Lawrence)-->help appreciated * Chest xray (08/26): right arm PICC is seen with the tip of distal subclavian vein. PICC may be used * Rapid A strep, Influenza A and B studies, Urine Legionella, Mycoplasma studies = Negative * Florastor 250mg PO bid * 08/07/17: +Strep Pneumoniae in the urine * Meropenem 500mg IV Q 8 hours (08/14/17 through 08/18/17) and Zosyn 2.25 mg IV Q6H (08/13/17 through 08/18/17) * Cefepime 1 gm IV Q24H (08/19/17)-->DAY 8 * s/p right posterior chest tube 08/19-08/24 * Sputum Culture 08/19/17 shows No growth * Pleural fluid 08/19/17: No growth Status: Acute (7) HTN (hypertension) Assessment and Plan: * Lopressor 50mg PO bid Status: Chronic (8) CKD (chronic kidney disease) on Dialysis Assessment and Plan: * Dr. Miranda (nephrology) consulted on the case * Hx of CKD-->Started on dialysis 08/15/17 * Kurtis catheter placed and removed 08/22 * s/p Permcath 08/22 * Patient is on dialysis; oliguric * Phoslo 1334mg GT TID * Epoetin 10,000 unit IV MWF Status: Acute (9) Diabetes mellitus Assessment and Plan: * Accuchecks Q6H * HgbA1c 8.4 * Levemir 16 units subq12 * Start peg feedings on 08/26/17 * Nepro-->20 ml/hr w goal: 50 ml/h (10) HLD (hyperlipidemia) Assessment and Plan: * 08/27: held Crestor 10 mg PO HS secondary to rise in LFTs Status: Chronic (11) Anemia Assessment and Plan: * Heme-oncology (Dr. Giles bender) on board-->help appreciated * Likely iron deficiency anemia based on prior admissions * Ferritin 27.4, Iron 22, TIBC 322, % Saturation 7 * Ferric Sodium Gluconate 125mg IVPB daily (active 08/08-08/16) * Procrit 10,000 units M-- * Monitor Hgb/Hct: stable Status: Chronic (12) History of DVT (deep vein thrombosis) Assessment and Plan: * Patient was previously on Eliquis for a prior history of DVT. * Repeat dopplers 08/09/17 are negative for DVT * Off Heparin Drip 08/17/17 * Start Eliquis 2.5mg PO BID for atrial flutter and history of DVT Status: Chronic (13) UTI Assessment and Plan: * Infectious disease (Dr. Lawrence) on board-->help appreciated * Exchange jaquez out and repeat urine cultures * Urine Culture 08/12/17 showed Gram Negative Rods: NO identification and NO sensitivities were performed * Meropenem 500mg IV Q 12hours (active since 08/14/17 through 08/18/17) to cover for UTI per ID * Repeat Urine Culture 08/18/17 shows NO growth * 08/25: reculture in light of leukocytosis * 08/27: pending urine studies Status: Chronic (14) Confusion; Alzheimer's Dementia Assessment and Plan: * Per daughter, patient has been getting bouts of confusion over the past year but appears at baseline. Patient has not seen formal neurology as outpatient per daughter. Per , prior to event, noted Alzheimers' disease dx one year ago * CT head w/o contrast (08/10/17):acute os subacute lacune infarct is not excluded in the left basal ganglia inferiorly with definitive chronic lacune identified in the right basal ganglia superiorly. No acute or subacute lobar brain infarction is appreciable by standard CT criteria. Mild age-related neuro degenerative changes are identifed. No acute intracranial hemorrhage or mass is identified throughout * 08/26: Off Sedation-->patient moves all extremities randomly but does not follow directions * 08/27: off sedation-->patient is very calm, smiles at his Status: Chronic (15) Unstageable sacral ulcer Assessment and Plan: * Wound care on board * WOUND CARE NOTE (08/26)-->Pt with a sacral unstageable being treated with medihoney. No changes to dimensions at this time. Also, pt favoring Left side of head and has developed a 1x1 serous filled blister on his left ear. Primary nurse placed duoderm on the ear. Wound care nurse left duoderm in place , and recommends leaving it on until it falls off on its own. Pt has been NPO for several days, new peg inserted yesterday. Will be starting glucerna tube feedings later today. Albumin 3.3 * Turn q 2 hours * medihoney Status: Acute (16) Elevated LFTs Assessment and Plan: * 08/27: Yina * Discussed with cardiology-->changed amiodarone 200mg PO tid to amiodaron 200mg PO daily * D/C tylenol * Held Statin * patient is also on Rocephin to cover for pneumonia * Will not start antifungal * Will need daily LFTs Status: Acute (17) Prophylactic measure Assessment and Plan: * Pepcid 20mg PO daily * Start Eliquis 2.5mg PO BID * s/p peg placement 08/25 * s/p trachesostomy 08/22 * s/p Permcath placement 08/22 removal Kurtis catheter * s/p right posterior chest tube 08/19-->removed 08/24 * s/p PICC 08/26 * (Jovita Serrano): -->number provided to the nurse- ->consented for peg placement; discussed about LTAC 08/26 * Spoke with Dr. Pickard, [place] regarding patient's hospitalization up until this point 08/26 Disposition: * Patient restarted on Aspirin and Eliquis. * Patient has no drainage for IR to place pigtail for left pleural effusion * Patient's white count uptrending-->f/u repeat cultures (08/26) * Patient is for LTAC; discussed with case management who will speak with the -->pending approval * s/p PICC line by IR * Monitor daily LFTs-->changed amiodarone, d/c tylenol, held statin on 08/27--> continue to monitor
[2017-08-29] MEDS: Albuterol-Ipratrop 3 mg / 0.5 (3 ml) UD INH SCH ×5 (03:19→20:23)
[2017-08-29] MEDS: (Novolog) Insulin Aspart, Recombinant 100 u/ml 10 ml vial SC SCH ×4 (05:36→18:31)
--- NOTE | 2017-08-29 07:57 | CP.CCUPN ---
CCU Subjective - Physician Review Subjective (Free Text): Patient was seen and examined at bedside. Patient was alert with extraocular movement. Patient is with tracheostomy and PEG tube. As per nursing, there were no acute issues overnight. Unable to evaluate ROS as patient is non- verbal. Patient was receiving HD during the encounter. Critical Care Time Spent (in minutes): 35 CCU Objective - Vital Signs / Intake & Output Vital Signs (Last 4 hours): Vital Signs Temp Pulse Resp BP Pulse Ox 08/29/17 06:10 87 24 100/46 L 97 08/29/17 06:00 90 16 100 08/29/17 05:10 89 116/39 L 96 08/29/17 05:00 89 99 08/29/17 04:10 88 109/42 L 98 08/29/17 04:00 98 F 85 93 L Intake and Output (Last 8hrs): Intake & Output 08/28/17 08/29/17 08/29/17 22:59 06:59 14:59 Intake Total 150 350 Balance 150 350 Weight 184 lb Intake: Tube Feeding 150 300 Other 50 Other: # Voids Urine, Voided 0 # Bowel Movements 1 0 - Physical Exam Head: Positive for: Atraumatic Pupils: Positive for: Sluggish Extroacular Muscles: Positive for: EOMI Pharnyx: Positive for: Normal Respiratory/Chest: Positive for: Clear to Auscultation, Other (Tracheostomy ). Negative for: Good Air Exchange, Respiratory Distress Cardiovascular: Positive for: Regular Rate and Rhythm, Normal S1, S2 Abdomen: Positive for: Distention, Normal Bowel Sounds, Other (obese habitus) Upper Extremity: Negative for: Edema Lower Extremity: Negative for: Edema, Swelling Skin: Positive for: Warm, Dry Psychiatric: Positive for: Alert (off sedation). Negative for: Oriented x 3 - Medications Active Medications: Active Medications Generic Name Dose Route Start Last Admin Trade Name Freq PRN Reason Stop Dose Admin Albuterol/Ipratropium 3 ml 08/26/17 16:00 08/29/17 07:51 Duoneb 3 Mg/0.5 Mg (3 Ml) Ud INH 3 ml RQ4 [facility] Administration Amiodarone HCl 200 mg 08/28/17 10:00 08/28/17 09:27 Cordarone PO 200 mg DAILY [facility] FERNANDO Administration Apixaban 2.5 mg 08/27/17 12:00 08/28/17 19:02 Eliquis PO 2.5 mg BID [facility] FERNANDO Administration Aspirin 81 mg 08/26/17 14:00 08/28/17 09:24 Aspirin Chewable PO 81 mg DAILY [facility]ERNAND[facility] Administration Calcium Acetate 1,334 mg 08/26/17 14:00 08/28/17 17:30 Phoslo GT 1,334 mg TID [facility] FERNANDO Administration Epoetin Chencho 10,000 unit 08/17/17 14:00 08/26/17 14:05 Procrit IV 10,000 unit MWF [facility] Administration Famotidine 20 mg 08/09/17 10:00 08/28/17 09:28 Pepcid PO 20 mg DAILY [facility] Administration Cefepime HCl 1 gm/ Dextrose 50 mls @ 100 mls/hr 08/19/17 12:00 08/28/17 12:16 IVPB 100 mls/hr Q24H [facility]ERNANDO Administration Insulin Aspart 0 unit 08/23/17 13:34 08/29/17 05:36 Novolog SC 4 unit Q6 [facility] Administration Protocol Insulin Detemir 19 unit 08/28/17 20:00 08/28/17 20:47 Levemir SC 19 unit Q12H [facility]ERNANDO Administration Lactobacillus Acidophilus 1 cap 08/13/17 18:00 08/28/17 17:41 Bacid Acidophilus PO 1 cap BID [facility]ERNANDO Administration Lisinopril 5 mg 08/29/17 10:00 Zestril PO DAILY [facility] Lorazepam 1 mg 08/23/17 10:28 08/26/17 11:10 Ativan IVP 1 mg Q2H PRN Administration Anxiety Metoprolol Tartrate 50 mg 08/22/17 09:09 08/28/17 17:29 Lopressor PO 50 mg BID [facility] Administration Rosuvastatin Calcium 10 mg 08/06/17 22:00 08/26/17 22:41 Crestor PO 10 mg HS [facility]ERNA[facility] Administration - Patient Studies Lab Studies: Microbiology Studies 08/25/17 18:00 Blood Culture - Preliminary Blood NO GROWTH AFTER 3 DAYS 08/25/17 17:30 Blood Culture - Preliminary Blood NO GROWTH AFTER 3 DAYS 08/26/17 12:30 Blood Culture - Preliminary Blood-Venous NO GROWTH AFTER 48 HOURS 08/26/17 12:00 Blood Culture - Preliminary Blood-Venous NO GROWTH AFTER 48 HOURS 08/26/17 15:10 Gram Stain - Final Trachasp Sputum Culture - Final NORMAL ORAL SILVIA Lab Studies 08/29/17 08/28/17 08/28/17 Range/Units 05:32 23:23 18:11 Neutrophils % (Manual) (50-75) % Band Neutrophils % (0-2) % Lymphocytes % (Manual) (20-40) % Monocytes % (Manual) (0-10) % Eosinophils % (Manual) (0-4) % Platelet Estimate (NORMAL) Large Platelets Polychromasia Hypochromasia (manual) Poikilocytosis (manual Anisocytosis (manual) Microcytosis (manual) Macrocytosis (manual) Spherocytes Ovalocytes Creatinine (0.8-1.5) MG/DL Est GFR ( Amer) Est GFR (Non-Af Amer) POC Glucose (mg/dL) 307 H 276 H 291 H (65-110) mg/dL 08/28/17 08/28/17 08/28/17 Range/Units 11:29 06:49 06:49 Neutrophils % (Manual) 82 H (50-75) % Band Neutrophils % 1 (0-2) % Lymphocytes % (Manual) 8 L (20-40) % Monocytes % (Manual) 6 (0-10) % Eosinophils % (Manual) 3 (0-4) % Platelet Estimate Slightly increased H (NORMAL) Large Platelets Present Polychromasia Slight Hypochromasia (manual) Slight Poikilocytosis (manual Slight Anisocytosis (manual) Moderate Microcytosis (manual) Slight Macrocytosis (manual) Slight Spherocytes Slight Ovalocytes Slight Creatinine 6.2 H (0.8-1.5) MG/DL Est GFR ( Amer) 11 Est GFR (Non-Af Amer) 9 POC Glucose (mg/dL) 322 H (65-110) mg/dL Laboratory Results - last 24 hr 08/28/17 08/28/17 08/28/17 06:49 06:49 11:29 Neutrophils % (Manual) 82 H Band Neutrophils % 1 Lymphocytes % (Manual) 8 L Monocytes % (Manual) 6 Eosinophils % (Manual) 3 Platelet Estimate Slightly increased H Large Platelets Present Polychromasia Slight Hypochromasia (manual) Slight Poikilocytosis (manual Slight Anisocytosis (manual) Moderate Microcytosis (manual) Slight Macrocytosis (manual) Slight Spherocytes Slight Ovalocytes Slight Creatinine 6.2 H Est GFR ( Amer) 11 Est GFR (Non-Af Amer) 9 POC Glucose (mg/dL) 322 H 08/28/17 08/28/17 08/29/17 18:11 23:23 05:32 Neutrophils % (Manual) Band Neutrophils % Lymphocytes % (Manual) Monocytes % (Manual) Eosinophils % (Manual) Platelet Estimate Large Platelets Polychromasia Hypochromasia (manual) Poikilocytosis (manual Anisocytosis (manual) Microcytosis (manual) Macrocytosis (manual) Spherocytes Ovalocytes Creatinine Est GFR ( Amer) Est GFR (Non-Af Amer) POC Glucose (mg/dL) 291 H 276 H 307 H Fingerstick Blood Sugar Results: 286 Review of Systems - Review of Systems Review of Systems: Unable to evaluate as patient is non-verbal Critical Care Progress Note - Nutrition Nutrition: Nutrition Category Date Time Status NPO Diet [DIET] Diets 08/21/17 Dinner Active Assessment/Plan - Assessment and Plan (Free Text) Assessment: 77 year old male admitted to ICU on 08/10 from hospital floors, patient was to get a CT scan and had respiratory distress, code blue was called and patient was transferred to ICU and intubated. Patient is with tracheostomy, PEG tube and midline Plan: To discharge to LTAC Plan: Neuro: no acute issues - Ativan 1mg IVP Q2H prn for anxiety Pulm: Acute respiratory failure in severe ARDS, was initially intubated but now with tracheostomy - 08/19 CT chest showed large right pleural effusion. Right sided pigtail was placed. - 08/25: Chest X-ray:Stable left pleural effusion---> IR consult for left effusion drainage--> No drainage from left pleural effusion (08/26/17) - Tracheostomy in place, FIO2 decreased from 60%-50%-40% (08/26/17). FIO2 remains at 40% - Duoneb 3 ml INH RQ4 CV: NSTEMI and onset of A.flutter - Plavix discontinued due to stent being placed >1 year ago. - ASA 81 mg PO daily (HELD) - Lopressor 50 mg PO BID - Crestor 10 mg PO HS -Amiodarone 200mg PO TID -Eliquis 2.5mg PO BID Heme: h/o anemia, DVT - 08/09 Lower extremities doppler negative for DVTs bilaterally Renal: ALIREZA - Continue aggressive HD (MWF) via perma cath - Phoslo 1,334mg GT TID - Procrit 10,000 unit IV MWF Endo: DM type 2 - ISS- low dose protocol - Levemir 19 unit SC Q12H GI: no acute issues Dr. Wills on board for PEG -TUBE placement * PEG tube in place : Sanchez D/C ID: Severe sepsis from pneumonia Leukocytosis - 08/19 Sputum: no growth - 08/18 Urine Cx: no growth - 08/26/17: F/u repeat blood culture, sputum culture and urine culture and procalcitonin: * Blood Culture: Negative * Urine Culture: yeast species * Tracheostomy Sputum culture: Normal Silvia * Procalcitonin: 3.27 Medication: Cefepime 1 gm daily: Day 11 (started on 08/19) Prophylaxis DVT: SCDs and Eliquis 2.5mg PO BID GI: pepcid 20 mg PO daily, Lactobacillus 1 cap PO BID Acetaminophen 650 mg PO prn Sanchez for strict I/O's during acute illness Code status - full code Plan: To discharge to LTAC, human services case manager/social group worker working on LTAC arrangement
[2017-08-29] MEDS: Insulin Detemir 100 units/ml Vial (Levemir) SC SCH ×2 (08:04→21:15)
[2017-08-29 09:25] LABS: BASO # 0.1 K/uL (0.0-0.2); BASO % 1.1 % (0.0-2.0); EOS # 0.5 K/uL (0.0-0.7); EOS % 3.5 % (0.0-4.0); HEMATOCRIT 27.8 % (35.0-51.0); LYMPH # 1.1 K/uL (1.0-4.3); LYMPH % 8.2 % (20.0-40.0); MEAN CELL VOLUME 74.2 fL (80.0-94.0); MEAN CORPUSCULAR HEMOGLOBIN 23.7 pg (27.0-31.0); MEAN CORPUSCULAR HGB CONC 31.9 g/dL (33.0-37.0); MONO # 0.4 K/uL (0.0-0.8); MONO % 3.2 % (0.0-10.0); PLATELET COUNT 478 K/uL (130-400); RED CELL DISTRIBUTION WIDTH 21.8 % (11.5-14.5); WHITE BLOOD COUNT 13.1 K/uL (4.8-10.8)
--- NOTE | 2017-08-29 09:27 | CP.PCM.PN ---
Subjective - Date & Time of Evaluation Date of Evaluation: 08/29/17 Time of Evaluation: 09:00 - Subjective Subjective: Hospitalist Progress Note Patient was seen and examined at 9:00 08/29/17 ICU Bed #5. 77 year old male with extensive medical history (please see Assessment and Plans below) was admitted on 08/06/17 for evaluation of SOB and Chest Pain. He was planned for Cardiac Catheterization on 08/09/17. Patient then had Acute Respiratory Failure and had to be intubated and placed on vent. He is S/P Tracheostomy 08/22/17 and PEG Tube Placement 08/25/17. Please see details below. ROS are not possible as although patient is awake he is not answering (shaking his head yes or no) Exam: - Head Exam Head Exam: NORMAL INSPECTION - Eye Exam Eye Exam: could not evaluate EOM due to patient's current status Pupil Exam: round, equal, and reactive to light - Respiratory Exam Respiratory Exam: Decreased Breath Sounds bilateral lower lung buchanan but limited due to lack of patient participation Additional comments: Trach Collar - Cardiovascular Exam Cardiovascular Exam: REGULAR RHYTHM, +S1, +S2 - GI/Abdominal Exam GI & Abdominal Exam: Distended, Soft, Normal Bowel Sounds, could not palpate liver and spleen, PEG Tube Insertion Site LUQ without evidence of cellutlitis. absent: Firm, Guarding, Rigid, Tenderness, Rebound Additional comments: obese habitus - Extremities Exam Extremities Exam: Normal Capillary Refill, Pedal Edema. absent: Tenderness Additional comments: Prevalon boots b/l - Neurological Exam Additional comments: Could not be performed due to lack of patient participation - Skin Skin Exam: Unstageable Sacral Ulcer. Shallow Ulcer Left outer ear Assessment and Plan - Assessment and Plan (Free Text) Assessment: (1) Acute Respiratory Failure ARDS Cardiac Arrest Pulmonary Edema Nonstemi Assessment and Plan: * Code Blue on 08/10: asystole, cardiopulmonary resuscitative measures initiated , requiring 3 epis, bicarbonate, ROSC achieved and intubated and brought to the ICU for further management; Patient in the ICU from 08/10 until present. * Pulmonary: Dr Mena (Dr. Jeffers covering until 09/04/17)-->help appreciated * Cardiology: Dr. Cortés on board-->help appreciated * GI (Dr. Wills) on board-->help appreciated * S/P Tracheostomy 9/25 * S/P Peg tube placement 08/25 * s/p insertion of right posterior chest tube 08/19-->removed 08/24/17 * There was consideration for possible thoracentesis of left side pleural effusion, evaluated by IR, there is no fluid to drain per Dr. Gross * Chest xray (08/26): right arm PICC is seen with the tip of distal subclavian vein. PICC may be used * Per cardiology, * Restart Aspirin 81mg PO daily * Patient does not need Plavix at this time * Recommend for Eliquis 2.5mg PO BID for atrial flutter * 08/27: patient is pending LTAC, he went eventually need cardiac catheterization when he has stabilized. Held statin secondary to elevated LFTs. Discussed with Dr. Cortés, lowered Amiodarone 200mg PO daily * 08/28: patient is pending LTAC, he went eventually need cardiac catheterization when he has stabilized. Liver function tests improving * 08/29: Other Spatial Scientist Nehal has sent request to insurance for authorization for LTAC (2) Abnormal Stress Test History of AICD History of Coronary Artery Disease Assessment and Plan: * Cardiology (Dr. Cortés) on board-->help appreciated * TSH: 1.16; T4: 1.53 * Echocardiogram (08/08/17): left ventricle systolic function is severely impaired. EF: 25-30%; global hypokinesis of left ventricle mild aortic regurgitation. Mitral regurgitation is moderate. Moderate-severe pulmonary hypertension * Plan was for cardiac catheterization; delayed due to acute renal failure; Attempted gentle hydration and mucomyst on 08/09 to optimize prior to cath * On 08/10, patient was in asystole, ACLS protocol, ROSC achieved, intubated and transfered to the ICU. Patient in acute pulmonary edema. * Patient hospitalized in the ICU since 08/10/17 to present. * Medications: * Aspirin 81mg PO daily * Plavix d/c by cardiology * Lopressor 50mg PO bid * d/c Crestor 10mg POqHS secondary to rise in LFTS 08/27--->monitor LFTs daily * ARB d/c secondary to acute renal failure * 08/27: patient is pending LTAC, he went eventually need cardiac catheterization when he has stabilized. Held statin secondary to elevated LFTs. Discussed with Dr. Cortés, lowered Amiodarone 200mg PO daily * 08/28: patient is pending LTAC, he went eventually need cardiac catheterrization when he has stabilized. Liver function tests improving. Statin is on hold (3) Atrial flutter Assessment and Plan: * Cardiology (Dr. Cortés) on board-->help appreciated * Refractory to Lopressor/Cardizem IVP * Eliquis 2.5mg PO bid * Amiodarone bolus-->Amiodarine drip on 08/24-->converted to Amiodarone 200mg PO TID on 08/26 and this was decreased to 200 mg 1x/day due to increased LFTs * 08/27: Discussed with Dr. Cortés, will lower Amiodarone 200mg PO daily and monitor LFTs. Statin held and tylenol d/c * 08/28: patient is pending LTAC, he went eventually need cardiac catheterization when he has stabilized. Liver function tests improving. Statin is on hold Status: Acute (4) Acute on Chronic Systolic CHF exacerbation Assessment and Plan: * Cardiology (Dr. Cortés) on board-->help appreciated * Transferred to the ICU on 08/10 following cardiac arrest and intubation. * Echocardiogram (08/08/17): left ventricular systolic function is severely impaired. EF: 25-30%; global hypokinesis of left ventricle mild aortic regurgitation. Mitral regurgitation is moderate. Moderate-severe pulmonary hypertension * Medications: * Aspirin 81mg PO daily * Plavix d/c by cardiology * Lopressor 50mg PO bid * d/c Crestor 10mg POqHS on 08/27 secondary to rise in LFTs * ARB d/c secondary to acute renal failure Status: Acute (5) Leukocytosis Assessment and Plan: * Patient's white count rising * Procalcitonin elevated * Pleural Fluid 08/19/17 did not show any growth * Blood cultures (08/26): no growth After 48hours X2 * UA and urine culture (08/27): pending * Patient has elevated LFTs-->did not start anti-fungal in light of LFTs Status: Acute (6) Pneumonia Assessment and Plan: * Pulmonary (Dr. Mena) on board-->help appreciated; Dr. Jeffers covering while Dr. Mena away * Infectious Disease (Dr. Lawrence)-->help appreciated * Chest xray (08/26): right arm PICC is seen with the tip of distal subclavian vein. PICC may be used * Rapid A strep, Influenza A and B studies, Urine Legionella, Mycoplasma studies = Negative * Florastor 250mg PO bid * 08/07/17: +Strep Pneumoniae in the urine * Meropenem 500mg IV Q 8 hours (08/14/17 through 08/18/17) and Zosyn 2.25 mg IV Q6H (08/13/17 through 08/18/17) * Cefepime 1 gm IV Q24H (08/19/17)-->DAY 8 * s/p right posterior chest tube 08/19-08/24 * Sputum Culture 08/19/17 shows No growth * Pleural fluid 08/19/17: No growth Status: Acute (7) HTN (hypertension) Assessment and Plan: * Lopressor 50mg PO bid Status: Chronic (8) CKD (chronic kidney disease) on Dialysis Assessment and Plan: * Dr. Miranda (nephrology) consulted on the case * Hx of CKD-->Started on dialysis 08/15/17 * Kurtis catheter placed and removed 08/22 * s/p Right Chest Permcath 08/22 * Patient is on dialysis; oliguric * Phoslo 1334mg GT TID * Epoetin 10,000 unit IV MWF Status: Acute (9) Diabetes mellitus Assessment and Plan: * Accuchecks Q6H * HgbA1c 8.4 * Levemir 16 units subq12 * Start peg feedings on 08/26/17 * Nepro-->20 ml/hr w goal: 50 ml/h (10) HLD (hyperlipidemia) Assessment and Plan: * 08/27: held Crestor 10 mg PO HS secondary to rise in LFTs * 08/28: Liver function tests improving; waiting to restart statin Status: Chronic (11) Anemia Assessment and Plan: * Heme-oncology (Dr. Giles bender) on board-->help appreciated * Likely iron deficiency anemia based on prior admissions * Ferritin 27.4, Iron 22, TIBC 322, % Saturation 7 * Ferric Sodium Gluconate 125mg IVPB daily (active 08/08-08/16) * Procrit 10,000 units M-W-F * Monitor Hgb/Hct: stable Status: Chronic (12) History of DVT (deep vein thrombosis) Assessment and Plan: * Patient was previously on Eliquis for a prior history of DVT. * Repeat dopplers 08/09/17 are negative for DVT * Off Heparin Drip 08/17/17 * Start Eliquis 2.5mg PO BID for atrial flutter and history of DVT Status: Chronic (13) UTI Assessment and Plan: * Infectious disease (Dr. Lawrence) on board-->help appreciated * Exchange jaquez out and repeat urine cultures * Urine Culture 08/12/17 showed Gram Negative Rods: NO identification and NO sensitivities were performed * Meropenem 500mg IV Q 12hours (active since 08/14/17 through 08/18/17) to cover for UTI per ID * Repeat Urine Culture 08/18/17 shows NO growth * 08/25: reculture in light of leukocytosis * 08/27: pending urine studies Status: Chronic (14) Confusion; Alzheimer's Dementia Assessment and Plan: * Per daughter, patient has been getting bouts of confusion over the past year but appears at baseline. Patient has not seen formal neurology as outpatient per daughter. Per , prior to event, noted Alzheimers' disease dx one year ago * CT head w/o contrast (08/10/17):acute os subacute lacune infarct is not excluded in the left basal ganglia inferiorly with definitive chronic lacune identified in the right basal ganglia superiorly. No acute or subacute lobar brain infarction is appreciable by standard CT criteria. Mild age-related neuro degenerative changes are identifed. 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 No changes to dimensions at this time. Also, pt favoring Left side of head and has developed a 1x1 serous filled blister on his left ear. Primary nurse placed duoderm on the ear. Wound care nurse left duoderm in place , and recommends leaving it on until it falls off on its own. Pt has been NPO for several days, new peg inserted yesterday. Will be starting glucerna tube feedings later today. Albumin 3.3 * Turn q 2 hours * medihoney on unstageable ulcer * duoderm on left ear aurical ulcer Status: Acute (16) Elevated LFTs Assessment and Plan: * 08/27: Yina * Discussed with cardiology-->changed amiodarone 200mg PO tid to amiodaron 200mg PO daily * D/C tylenol * Held Statin * patient is also on Rocephin to cover for pneumonia * Will not start antifungal * 08/28: starting to down trending since change in amiodarone dose; awaiting to restart statin Status: Acute (17) Prophylactic measure Assessment and Plan: * Pepcid 20mg PO daily * Start Eliquis 2.5mg PO BID * s/p peg placement 08/25 * s/p trachesostomy 08/22 * s/p Permcath placement 08/22 removal Kurtis catheter * s/p right posterior chest tube 08/19-->removed 08/24 * s/p Right Arm PICC 08/26 * (Jovita Serrano): -->number provided to the nurse- ->consented for peg placement; discussed about LTAC 08/26 * Dr Mariangel Lazar spoke with Dr. Pickard, [facility] regarding patient's hospitalization up until this point 08/26 I spoke with Other Spatial Scientist Nehal and she has sent authorization for LTAC to insurance company. Cullen Barth D.O. Objective - Vital Signs/Intake and Output Vital Signs (last 24 hours): Temp Pulse Resp BP Pulse Ox 98 F 91 H 13 115/42 L 100 08/29/17 08:38 08/29/17 09:00 08/29/17 09:00 08/29/17 08:53 08/29/17 09:00 Intake and Output: 08/29/17 08/29/17 06:59 18:59 Intake Total 350 Balance 350 - Medications Medications: Current Medications Albuterol/Ipratropium (Duoneb 3 Mg/0.5 Mg (3 Ml) Ud) 3 ml INH RQ4 [facility] Last Admin: 08/29/17 07:51 Dose: 3 ml Amiodarone HCl (Cordarone) 200 mg PO DAILY [facility] Last Admin: 08/28/17 09:27 Dose: 200 mg Apixaban (Eliquis) 2.5 mg PO BID [facility] Last Admin: 08/28/17 19:02 Dose: 2.5 mg Aspirin (Aspirin Chewable) 81 mg PO DAILY [facility] Last Admin: 08/28/17 09:24 Dose: 81 mg Calcium Acetate (Phoslo) 1,334 mg GT TID [facility] Last Admin: 08/28/17 17:30 Dose: 1,334 mg Epoetin Chencho (Procrit) 10,000 unit IV MWF [facility] Last Admin: 08/26/17 14:05 Dose: 10,000 unit Famotidine (Pepcid) 20 mg PO DAILY [facility] Last Admin: 08/28/17 09:28 Dose: 20 mg Cefepime HCl 1 gm/ Dextrose 50 mls @ 100 mls/hr IVPB Q24H [facility] Last Admin: 08/28/17 12:16 Dose: 100 mls/hr Insulin Aspart (Novolog) 0 unit SC Q6 [facility] PRN Reason: Protocol Last Admin: 08/29/17 05:36 Dose: 4 unit Insulin Detemir (Levemir) 19 unit SC Q12H [facility] Last Admin: 08/29/17 08:04 Dose: 19 unit Lactobacillus Acidophilus (Bacid Acidophilus) 1 cap PO BID [facility] Last Admin: 08/28/17 17:41 Dose: 1 cap Lisinopril (Zestril) 5 mg PO DAILY [facility] Lorazepam (Ativan) 1 mg IVP Q2H PRN PRN Reason: Anxiety Last Admin: 08/26/17 11:10 Dose: 1 mg Metoprolol Tartrate (Lopressor) 50 mg PO BID [facility] Last Admin: 08/28/17 17:29 Dose: 50 mg Rosuvastatin Calcium (Crestor) 10 mg PO HS [facility] Last Admin: 08/26/17 22:41 Dose: 10 mg - Labs Labs: 08/28/17 06:49 08/28/17 06:49 PT 13.9 SECONDS (9.7-12.2) H 08/24/17 06:08 INR 1.2 08/24/17 06:08 APTT 55 SECONDS (21-34) H D 08/17/17 06:12
[2017-08-29 09:42] LABS: POTASSIUM 3.4 mmol/L (3.6-5.2)
[2017-08-29 09:44] LABS: ALB/GLOB RATIO 0.8 (1.0-2.1); BILIRUBIN,TOTAL 0.5 mg/dL (0.2-1.3); TOTAL PROTEIN 7.1 g/dL (6.3-8.3)
[2017-08-29 09:45] LABS: CALCIUM 8.5 mg/dl (8.6-10.4)
[2017-08-29] MEDS: EPOETIN ALFA 10,000 UNIT/ML ML IV SCH (09:53)
[2017-08-29 10:30] LABS: EOSINOPHIL 7 % (0-4); NEUTROPHIL 84 % (50-75); TOTAL CELLS COUNTED 100
--- NOTE | 2017-08-29 11:18 | CP.PCM.PN ---
Subjective - Date & Time of Evaluation Date of Evaluation: 08/29/17 Time of Evaluation: 11:16 - Subjective Subjective: On dialysis now- to UF 2000ml K low- incewase K bath Phos still increased - increase phos binders on trach, awake, confused- cannot obtain ROS Objective - Vital Signs/Intake and Output Vital Signs (last 24 hours): Temp Pulse Resp BP Pulse Ox 98 F 91 H 13 104/47 L 100 08/29/17 08:38 08/29/17 09:00 08/29/17 09:00 08/29/17 11:08 08/29/17 09:00 Intake and Output: 08/29/17 08/29/17 06:59 18:59 Intake Total 350 Balance 350 - Medications Medications: Current Medications Albuterol/Ipratropium (Duoneb 3 Mg/0.5 Mg (3 Ml) Ud) 3 ml INH RQ4 [facility] Last Admin: 08/29/17 07:51 Dose: 3 ml Amiodarone HCl (Cordarone) 200 mg PO DAILY [facility] Last Admin: 08/28/17 09:27 Dose: 200 mg Apixaban (Eliquis) 2.5 mg PO BID [facility] Last Admin: 08/28/17 19:02 Dose: 2.5 mg Aspirin (Aspirin Chewable) 81 mg PO DAILY [facility] Last Admin: 08/28/17 09:24 Dose: 81 mg Calcium Acetate (Phoslo) 2,001 mg GT TID [facility] Epoetin Chencho (Procrit) 10,000 unit IV MWF [facility] Last Admin: 08/29/17 09:53 Dose: 10,000 unit Famotidine (Pepcid) 20 mg PO DAILY [facility] Last Admin: 08/28/17 09:28 Dose: 20 mg Cefepime HCl 1 gm/ Dextrose 50 mls @ 100 mls/hr IVPB Q24H [facility] Last Admin: 08/28/17 12:16 Dose: 100 mls/hr Insulin Aspart (Novolog) 0 unit SC Q6 [facility] PRN Reason: Protocol Last Admin: 08/29/17 05:36 Dose: 4 unit Insulin Detemir (Levemir) 19 unit SC Q12H [facility] Last Admin: 08/29/17 08:04 Dose: 19 unit Lactobacillus Acidophilus (Bacid Acidophilus) 1 cap PO BID [facility] Last Admin: 08/28/17 17:41 Dose: 1 cap Lisinopril (Zestril) 5 mg PO DAILY [facility] Lorazepam (Ativan) 1 mg IVP Q2H PRN PRN Reason: Anxiety Last Admin: 08/26/17 11:10 Dose: 1 mg Metoprolol Tartrate (Lopressor) 50 mg PO BID [facility] Last Admin: 08/28/17 17:29 Dose: 50 mg Rosuvastatin Calcium (Crestor) 10 mg PO HS [facility] Last Admin: 08/26/17 22:41 Dose: 10 mg - Labs Labs: 08/29/17 09:22 08/29/17 09:22 PT 13.9 SECONDS (9.7-12.2) H 08/24/17 06:08 INR 1.2 08/24/17 06:08 APTT 55 SECONDS (21-34) H D 08/17/17 06:12 - Constitutional Appears: Confused, Chronically Ill - Head Exam Head Exam: ATRAUMATIC - Eye Exam Eye Exam: EOMI, Normal appearance - Neck Exam Neck Exam: Normal Inspection. absent: Tenderness - Respiratory Exam Respiratory Exam: Rhonchi, Respiratory Distress - Cardiovascular Exam Cardiovascular Exam: REGULAR RHYTHM, +S1 - GI/Abdominal Exam GI & Abdominal Exam: Soft. absent: Tenderness - Extremities Exam Extremities Exam: Normal Inspection. absent: Tenderness - Neurological Exam Neurological Exam: Altered, CN II-XII Intact - Skin Skin Exam: Dry, Warm Assessment and Plan (1) Acute on chronic renal failure Status: Acute (2) CAD (coronary artery disease) Status: Acute (3) CHF exacerbation Status: Chronic (4) Type 2 diabetes mellitus with diabetic nephropathy Status: Acute (5) CKD stage 4 due to type 2 diabetes mellitus Status: Acute (6) Cardiorenal disease Status: Acute (7) ESRD (end stage renal disease) Status: Acute - Assessment and Plan (Free Text) Plan: Dialysis now- increase UF goal dialysis MWF increase binders for eventual LTAC
[2017-08-29] MEDS: Lactobacillus Acidophilus 500 MU Cap PO SCH ×2 (11:27→17:34)
--- NOTE | 2017-08-29 11:35 | CP.PCM.PN ---
<Darryl Roe - Last Filed: 08/29/17 15:57> Subjective - Date & Time of Evaluation Date of Evaluation: 08/29/17 Time of Evaluation: 09:10 - Subjective Subjective: Cardiology Progress Note- Dr. Cortés's service Patient seen and examined and minimally responsive at this time. Patient awake but not responding to commands. No acute events per nursing. Patient s/p tracheostomy and peg placement. Patient not able to respond to ROS at this time due to his clinical status. Objective - Vital Signs/Intake and Output Vital Signs (last 24 hours): Temp Pulse Resp BP Pulse Ox 98 F 91 H 13 104/47 L 100 08/29/17 08:38 08/29/17 09:00 08/29/17 09:00 08/29/17 11:08 08/29/17 09:00 Intake and Output: 08/29/17 08/29/17 06:59 18:59 Intake Total 350 Balance 350 - Medications Medications: Current Medications Albuterol/Ipratropium (Duoneb 3 Mg/0.5 Mg (3 Ml) Ud) 3 ml INH RQ4 [facility] Last Admin: 08/29/17 07:51 Dose: 3 ml Amiodarone HCl (Cordarone) 200 mg PO DAILY [facility] Last Admin: 08/29/17 11:26 Dose: 200 mg Apixaban (Eliquis) 2.5 mg PO BID [facility] Last Admin: 08/29/17 11:27 Dose: 2.5 mg Aspirin (Aspirin Chewable) 81 mg PO DAILY [facility] Last Admin: 08/29/17 11:26 Dose: 81 mg Calcium Acetate (Phoslo) 2,001 mg GT TID [facility] Epoetin Chencho (Procrit) 10,000 unit IV MWF [facility] Last Admin: 08/29/17 09:53 Dose: 10,000 unit Famotidine (Pepcid) 20 mg PO DAILY [facility] Last Admin: 08/29/17 11:27 Dose: 20 mg Cefepime HCl 1 gm/ Dextrose 50 mls @ 100 mls/hr IVPB Q24H [facility] Last Admin: 08/28/17 12:16 Dose: 100 mls/hr Insulin Aspart (Novolog) 0 unit SC Q6 [facility] PRN Reason: Protocol Last Admin: 08/29/17 05:36 Dose: 4 unit Insulin Detemir (Levemir) 19 unit SC Q12H [facility] Last Admin: 08/29/17 08:04 Dose: 19 unit Lactobacillus Acidophilus (Bacid Acidophilus) 1 cap PO BID [facility] Last Admin: 08/29/17 11:27 Dose: 1 cap Lisinopril (Zestril) 5 mg PO DAILY [facility] Lorazepam (Ativan) 1 mg IVP Q2H PRN PRN Reason: Anxiety Last Admin: 08/26/17 11:10 Dose: 1 mg Metoprolol Tartrate (Lopressor) 50 mg PO BID [facility] Last Admin: 08/29/17 11:26 Dose: 50 mg Rosuvastatin Calcium (Crestor) 10 mg PO HS [facility] Last Admin: 08/26/17 22:41 Dose: 10 mg - Labs Labs: 08/29/17 09:22 08/29/17 09:22 PT 13.9 SECONDS (9.7-12.2) H 08/24/17 06:08 INR 1.2 08/24/17 06:08 APTT 55 SECONDS (21-34) H D 08/17/17 06:12 - Head Exam Head Exam: NORMAL INSPECTION - Eye Exam Eye Exam: PERRL - ENT Exam ENT Exam: Mucous Membranes Moist Additional comments: trach collar in place with minimal secretions noted - Neck Exam Neck Exam: Full ROM - Respiratory Exam Respiratory Exam: NORMAL BREATHING PATTERN - Cardiovascular Exam Cardiovascular Exam: +S1, +S2. absent: JVD, Murmur - GI/Abdominal Exam GI & Abdominal Exam: Soft, Normal Bowel Sounds Additional comments: central obesity - Extremities Exam Extremities Exam: Full ROM. absent: Pedal Edema - Neurological Exam Neurological Exam: Awake. absent: Alert, Oriented x3 - Psychiatric Exam Psychiatric exam: Flat Affect - Skin Skin Exam: Dry, Normal Color, Warm Assessment and Plan (1) Chest pain Status: Acute (2) CHF exacerbation Status: Chronic (3) Pneumonia Status: Acute (4) CAD (coronary artery disease) Status: Acute (5) HTN (hypertension) Status: Chronic (6) CKD (chronic kidney disease) Status: Acute (7) Diabetes mellitus Status: Chronic (8) HLD (hyperlipidemia) Status: Chronic (9) Constipation Status: Chronic (10) Anemia Status: Chronic (11) History of DVT (deep vein thrombosis) Status: Acute (12) Prophylactic measure Status: Acute - Assessment and Plan (Free Text) Assessment: Atrial Flutter Intermittent Likely due to Dobutamine administration last week which has since been discontinued Amiodarone discontinued; Will monitor to see that patient is rate controlled. On Metoprolol 50 mg PO BID, Eliquis 2.5 mg PO BID CAD, chest pain -No current plans for cardiac cath (acute respiratory failure and elevated Cr) , history of abnormal stress test -Elevated Troponin likely due to chest compressions during cardiac arrest 08/10 -No acute ST changes on EKG -Continue ASA, Crestor, Metoprolol. Plavix discontinued. -Echocardiogram from 08/08/17 showed left ventricle systolic function is severely impaired. EF: 25-30%; global hypokinesis of LV mild AR. MR is moderate. Moderate-severe pulmonary hypertension Systolic CHF exacerbation -BNP [id number] on 08/06/17 -Continue ASA, Crestor, Metoprolol -Echocardiogram from 08/08/17 showed left ventricle systolic function is severely impaired. EF: 25-30%; global hypokinesis of LV mild AR. MR is moderate. Moderate-severe pulmonary hypertesnion Dobutamine discontinued in light of atrial flutter-type episodes Prophylaxis -Pepcid 20 mg PO daily -Eliquis 2.5 mg PO BID (Renal precautions) Disposition - Awaiting Transfer to LTAC Discussed with attending. All management and planning per Dr. Cortés <Sina Cortés - Last Filed: 08/29/17 22:33> Objective - Vital Signs/Intake and Output Vital Signs (last 24 hours): Temp Pulse Resp BP Pulse Ox 97.7 F 85 17 119/47 L 97 08/29/17 16:00 08/29/17 19:00 08/29/17 19:00 08/29/17 19:00 08/29/17 19:00 Intake and Output: 08/29/17 08/30/17 18:59 06:59 Intake Total 910 50 Balance 910 50 - Medications Medications: Current Medications Albuterol/Ipratropium (Duoneb 3 Mg/0.5 Mg (3 Ml) Ud) 3 ml INH RQ4 [facility] Last Admin: 08/29/17 20:23 Dose: 3 ml Apixaban (Eliquis) 2.5 mg PO BID [facility] Last Admin: 08/29/17 17:34 Dose: 2.5 mg Aspirin (Aspirin Chewable) 81 mg PO DAILY [facility] Last Admin: 08/29/17 11:26 Dose: 81 mg Calcium Acetate (Phoslo) 2,001 mg GT TIDCC [facility] Last Admin: 08/29/17 17:34 Dose: 2,001 mg Epoetin Chencho (Procrit) 10,000 unit IV MWF [facility] Last Admin: 08/29/17 09:53 Dose: 10,000 unit Famotidine (Pepcid) 20 mg PO DAILY [facility] Last Admin: 08/29/17 11:27 Dose: 20 mg Cefepime HCl 1 gm/ Dextrose 50 mls @ 100 mls/hr IVPB Q24H [facility] Last Admin: 08/29/17 12:50 Dose: 100 mls/hr Insulin Aspart (Novolog) 0 unit SC Q6 [facility] PRN Reason: Protocol Last Admin: 08/29/17 18:31 Dose: 4 unit Insulin Detemir (Levemir) 19 unit SC Q12H [facility] Last Admin: 08/29/17 21:15 Dose: 19 unit Lactobacillus Acidophilus (Bacid Acidophilus) 1 cap PO BID [facility] Last Admin: 08/29/17 17:34 Dose: 1 cap Lisinopril (Zestril) 5 mg PO DAILY [facility] Last Admin: 08/29/17 12:51 Dose: Not Given Lorazepam (Ativan) 1 mg IVP Q2H PRN PRN Reason: Anxiety Last Admin: 08/26/17 11:10 Dose: 1 mg Metoprolol Tartrate (Lopressor) 50 mg PO BID [facility] Last Admin: 08/29/17 17:35 Dose: 50 mg Rosuvastatin Calcium (Crestor) 10 mg PO HS [facility] Last Admin: 08/26/17 22:41 Dose: 10 mg - Labs Labs: 08/29/17 09:22 08/29/17 09:22 PT 13.9 SECONDS (9.7-12.2) H 08/24/17 06:08 INR 1.2 08/24/17 06:08 APTT 55 SECONDS (21-34) H D 08/17/17 06:12 Assessment and Plan - Assessment and Plan (Free Text) Assessment: Patient seen and evaluated with the ophthalmic medical technician Plan of care as documented
--- NOTE | 2017-08-29 13:13 | CARD ---
APPROVED REPORT EKG Measurement Heart [id number] <Conclusion> Sinus tachycardia with premature atrial complexes Left anterior fascicular block Abnormal ECG
--- NOTE | 2017-08-29 13:39 | US ---
Date of study: 08/26/2017 Study: Right arm PICC line placement Medications: 2 percent lidocaine 5 cubic centimeters Findings: Lung informed consent and procedure time-out, right arm prepped and draped in the usual sterile fashion. Ultrasound showed a patent and compressible right brachial vein. Under ultrasound guidance, the brachial vein was accessed with micropuncture technique. A single-lumen PICC was trimmed to 25 centimeters and position within the mid subclavian vein. Position of the PICC was confirmed with follow-up x-ray. The PICC was secured to patient's skin. A biopatch and sterile dressing was placed. Impression: Placement of a dual-lumen PICC right arm. The PICC was trimmed to 25 centimeters.
--- NOTE | 2017-08-29 17:39 | PN ---
SUBJECTIVE: The patient remains sedated on the ventilator with the trach-vent and is drowsy at this time. PHYSICAL EXAMINATION: NECK: Supple. LUNGS: Mostly clear. HEART: S1 and S2 are regular. ABDOMEN: Soft, nontender. He has a PEG tube present. EXTREMITIES: Remain with edema. His chest tube has been discontinued. LABORATORY DATA: Shows white count is 13.1, it is better; hemoglobin 8.9, hematocrit 27.8, platelet count is 478. His sodium is 135, potassium 3.4, chloride is 91, CO2 is 26, anion gap is 21, BUN is 78, creatinine still remains elevated at 5.4. He does have a dialysis catheter on the right side. He remains on cefepime which we started on 08/19, so it will be almost 10 days. His last chest x-ray was on 08/26, which showed right arm PICC line is seen with the tip, so that was when they put the PICC line in and they also did a joint effusion ultrasound. So at this time, the patient remains with respiratory failure, status post cardiopulmonary arrest, had Streptococcus pneumoniae in the sputum, has acute renal failure and is status post tracheostomy and PEG. He is on Maxipime, white count is coming down, it is almost coming to get him off of antibiotics or get him to long-term care. Allan Lawrence MD
[2017-08-30] MEDS: (Novolog) Insulin Aspart, Recombinant 100 u/ml 10 ml vial SC SCH ×4 (00:30→18:29)
[2017-08-30] MEDS: Albuterol-Ipratrop 3 mg / 0.5 (3 ml) UD INH SCH ×6 (00:56→19:19)
[2017-08-30 06:39] LABS: BASO # 0.1 K/uL (0.0-0.2); EOS # 0.5 K/uL (0.0-0.7); EOS % 3.5 % (0.0-4.0); HEMATOCRIT 29.5 % (35.0-51.0); LYMPH # 1.1 K/uL (1.0-4.3); LYMPH % 8.4 % (20.0-40.0); MEAN CELL VOLUME 74.8 fL (80.0-94.0); MEAN CORPUSCULAR HEMOGLOBIN 23.4 pg (27.0-31.0); MEAN CORPUSCULAR HGB CONC 31.3 g/dL (33.0-37.0); MEAN PLATELET VOLUME 8.4 fL (7.2-11.7); MONO # 1.1 K/uL (0.0-0.8); PLATELET COUNT 466 K/uL (130-400); RED CELL DISTRIBUTION WIDTH 22.7 % (11.5-14.5); WHITE BLOOD COUNT 13.2 K/uL (4.8-10.8)
[2017-08-30 06:56] LABS: POTASSIUM 4.5 mmol/L (3.6-5.2)
[2017-08-30 06:59] LABS: ALB/GLOB RATIO 0.8 (1.0-2.1); BILIRUBIN,TOTAL 0.6 mg/dL (0.2-1.3); CALCIUM 8.9 mg/dl (8.6-10.4); TOTAL PROTEIN 7.3 g/dL (6.3-8.3)
[2017-08-30] MEDS: Insulin Detemir 100 units/ml Vial (Levemir) SC SCH ×3 (07:33→22:57)
[2017-08-30 08:40] LABS: EOSINOPHIL 1 % (0-4); NEUTROPHIL 84 % (50-75); TOTAL CELLS COUNTED 100
[2017-08-30 08:41] LABS: GIANT PLATELETS PRESENT; LARGE PLATELETS PRESENT
--- NOTE | 2017-08-30 09:38 | CP.PCM.PN ---
Subjective - Date & Time of Evaluation Date of Evaluation: 08/30/17 Time of Evaluation: 09:30 - Subjective Subjective: Hospitalist Progress Note Patient was seen and examined at 9:30 08/30/17 ICU Bed #5. 77 year old male with extensive medical history (please see Assessment and Plans below) was admitted on 08/06/17 for evaluation of SOB and Chest Pain. He was planned for Cardiac Catheterization on 08/09/17. Patient then had Acute Respiratory Failure and had to be intubated and placed on vent. He is S/P Tracheostomy 08/22/17 and PEG Tube Placement 08/25/17. Please see details below. ROS are not possible as although patient is awake he is not answering (shaking his head yes or no) Exam: - Head Exam Head Exam: NORMAL INSPECTION - Eye Exam Eye Exam: could not evaluate EOM due to patient's current status Pupil Exam: round, equal, and reactive to light - Respiratory Exam Respiratory Exam: Decreased Breath Sounds bilateral lower lung buchanan but limited due to lack of patient participation Additional comments: Trach Collar - Cardiovascular Exam Cardiovascular Exam: REGULAR RHYTHM, +S1, +S2 - GI/Abdominal Exam GI & Abdominal Exam: Distended, Soft, Normal Bowel Sounds, could not palpate liver and spleen, PEG Tube Insertion Site LUQ without evidence of cellutlitis. absent: Firm, Guarding, Rigid, Tenderness, Rebound Additional comments: obese habitus - Extremities Exam Extremities Exam: Normal Capillary Refill, Pedal Edema. absent: Tenderness Additional comments: Prevalon boots b/l - Neurological Exam Additional comments: Could not be performed due to lack of patient participation - Skin Skin Exam: Unstageable Sacral Ulcer. Shallow Ulcer Left outer ear Assessment and Plan - Assessment and Plan (Free Text) Assessment: (1) Acute Respiratory Failure ARDS Cardiac Arrest Pulmonary Edema Nonstemi Assessment and Plan: * Code Blue on 08/10: asystole, cardiopulmonary resuscitative measures initiated , requiring 3 epis, bicarbonate, ROSC achieved and intubated and brought to the ICU for further management; Patient in the ICU from 08/10 until present. * Pulmonary: Dr Mena (Dr. Jeffers covering until 09/04/17)-->help appreciated * Cardiology: Dr. Cortés on board-->help appreciated * GI (Dr. Wills) on board-->help appreciated * S/P Tracheostomy 9/25 * S/P Peg tube placement 08/25 * s/p insertion of right posterior chest tube 08/19-->removed 08/24/17 * There was consideration for possible thoracentesis of left side pleural effusion, evaluated by IR, there is no fluid to drain per Dr. Gross * Chest xray (08/26): right arm PICC is seen with the tip of distal subclavian vein. PICC may be used * Per cardiology, * Restart Aspirin 81mg PO daily * Patient does not need Plavix at this time * Recommend for Eliquis 2.5mg PO BID for atrial flutter * 08/27: patient is pending LTAC, he went eventually need cardiac catheterization when he has stabilized. Held statin secondary to elevated LFTs. Discussed with Dr. Cortés, lowered Amiodarone 200mg PO daily * 08/28: patient is pending LTAC, he went eventually need cardiac catheterization when he has stabilized. Liver function tests improving * 08/29: [facility] has sent request to insurance for authorization for LTAC (2) Abnormal Stress Test History of AICD History of Coronary Artery Disease Assessment and Plan: * Cardiology (Dr. Cortés) on board-->help appreciated * TSH: 1.16; T4: 1.53 * Echocardiogram (08/08/17): left ventricle systolic function is severely impaired. EF: 25-30%; global hypokinesis of left ventricle mild aortic regurgitation. Mitral regurgitation is moderate. Moderate-severe pulmonary hypertension * Plan was for cardiac catheterization; delayed due to acute renal failure; Attempted gentle hydration and mucomyst on 08/09 to optimize prior to cath * On 08/10, patient was in asystole, ACLS protocol, ROSC achieved, intubated and transfered to the ICU. Patient in acute pulmonary edema. * Patient hospitalized in the ICU since 08/10/17 to present. * Medications: * Aspirin 81mg PO daily * Plavix d/c by cardiology * Lopressor 50mg PO bid * d/c Crestor 10mg POqHS secondary to rise in LFTS 08/27--->monitor LFTs daily * ARB d/c secondary to acute renal failure * 08/27: patient is pending LTAC, he went eventually need cardiac catheterization when he has stabilized. Held statin secondary to elevated LFTs. Discussed with Dr. Cortés, lowered Amiodarone 200mg PO daily * 08/28: patient is pending LTAC, he will eventually need cardiac catheterrization when he has stabilized. Liver function tests improving. Statin is on hold (3) Atrial flutter Assessment and Plan: * Cardiology (Dr. Cortés) on board-->help appreciated * Refractory to Lopressor/Cardizem IVP * Eliquis 2.5mg PO bid * Amiodarone bolus-->Amiodarine drip on 08/24-->converted to Amiodarone 200mg PO TID on 08/26 and this was decreased to 200 mg 1x/day due to increased LFTs * 08/27: Discussed with Dr. Cortés, will lower Amiodarone 200mg PO daily and monitor LFTs. Statin held and tylenol d/c * 08/29: patient is pending LTAC, he will eventually need cardiac catheterization when he has stabilized. Liver function tests improving. Statin is on hold * 08/30: Cardiology discontinued the Amiodarone Status: Acute (4) Acute on Chronic Systolic CHF exacerbation Assessment and Plan: * Cardiology (Dr. Cortés) on board-->help appreciated * Transferred to the ICU on 08/10 following cardiac arrest and intubation. * Echocardiogram (08/08/17): left ventricular systolic function is severely impaired. EF: 25-30%; global hypokinesis of left ventricle mild aortic regurgitation. Mitral regurgitation is moderate. Moderate-severe pulmonary hypertension * Medications: * Aspirin 81mg PO daily * Plavix d/c by cardiology * Lopressor 50mg PO bid * d/c Crestor 10mg POqHS on 08/27 secondary to rise in LFTs * ARB d/c secondary to acute renal failure Status: Acute (5) Leukocytosis Assessment and Plan: * Patient's white count rising * Procalcitonin elevated * Pleural Fluid 08/19/17 did not show any growth * Blood cultures (08/26): no growth After 48hours X2 * UA and urine culture (08/27): pending * Patient has elevated LFTs-->did not start anti-fungal in light of LFTs Status: Acute (6) Pneumonia Assessment and Plan: * Pulmonary (Dr. Mena) on board-->help appreciated; Dr. Jeffers covering while Dr. Mena away * Infectious Disease (Dr. Lawrence)-->help appreciated * Chest xray (08/26): right arm PICC is seen with the tip of distal subclavian vein. PICC may be used * Rapid A strep, Influenza A and B studies, Urine Legionella, Mycoplasma studies = Negative * Florastor 250mg PO bid * 08/07/17: +Strep Pneumoniae in the urine * Meropenem 500mg IV Q 8 hours (08/14/17 through 08/18/17) and Zosyn 2.25 mg IV Q6H (08/13/17 through 08/18/17) * Cefepime 1 gm IV Q24H (08/19/17)-->DAY 8 * s/p right posterior chest tube 08/19-08/24 * Sputum Culture 08/19/17 shows No growth * Pleural fluid 08/19/17: No growth Status: Acute (7) HTN (hypertension) Assessment and Plan: * Lopressor 50mg PO bid Status: Chronic (8) CKD (chronic kidney disease) on Dialysis Assessment and Plan: * Dr. Miranda (nephrology) consulted on the case * Hx of CKD-->Started on dialysis 08/15/17 * Kurtis catheter placed and removed 08/22 * s/p Right Chest Permcath 08/22 * Patient is on dialysis; oliguric * Phoslo 1334mg GT TID * Epoetin 10,000 unit IV MWF Status: Acute (9) Diabetes mellitus Assessment and Plan: * Accuchecks Q6H * HgbA1c 8.4 * Levemir 16 units subq12 * Start peg feedings on 08/26/17 * Nepro-->20 ml/hr w goal: 50 ml/h (10) HLD (hyperlipidemia) Assessment and Plan: * 08/27: held Crestor 10 mg PO HS secondary to rise in LFTs * 08/29: Liver function tests improving; waiting to restart statin Status: Chronic (11) Anemia Assessment and Plan: * Heme-oncology (Dr. Glies bender) on board-->help appreciated * Likely iron deficiency anemia based on prior admissions * Ferritin 27.4, Iron 22, TIBC 322, % Saturation 7 * Ferric Sodium Gluconate 125mg IVPB daily (active 08/08-08/16) * Procrit 10,000 units M-W- * Monitor Hgb/Hct: stable Status: Chronic (12) History of DVT (deep vein thrombosis) Assessment and Plan: * Patient was previously on Eliquis for a prior history of DVT. * Repeat dopplers 08/09/17 are negative for DVT * Off Heparin Drip 08/17/17 * Start Eliquis 2.5mg PO BID for atrial flutter and history of DVT Status: Chronic (13) UTI Assessment and Plan: * Infectious disease (Dr. Lawrence) on board-->help appreciated * Exchange jaquez out and repeat urine cultures * Urine Culture 08/12/17 showed Gram Negative Rods: NO identification and NO sensitivities were performed * Meropenem 500mg IV Q 12hours (active since 08/14/17 through 08/18/17) to cover for UTI per ID * Repeat Urine Culture 08/18/17 shows NO growth * 08/25: reculture in light of leukocytosis * 08/27: pending urine studies * 08/30: Urine Culture 08/27/17 showed Yeast Species but no antifungal secondary to recent history of Elevated LFTs Status: Chronic (14) Confusion; Alzheimer's Dementia Assessment and Plan: * Per daughter, patient has been getting bouts of confusion over the past year but appears at baseline. Patient has not seen formal neurology as outpatient per daughter. Per , prior to event, noted Alzheimers' disease dx one year ago * CT head w/o contrast (08/10/17):acute os subacute lacune infarct is not excluded in the left basal ganglia inferiorly with definitive chronic lacune identified in the right basal ganglia superiorly. No acute or subacute lobar brain infarction is appreciable by standard CT criteria. Mild age-related neuro degenerative changes are identifed. 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 No changes to dimensions at this time. Also, pt favoring Left side of head and has developed a 1x1 serous filled blister on his left ear. Primary nurse placed duoderm on the ear. Wound care nurse left duoderm in place , and recommends leaving it on until it falls off on its own. Pt has been NPO for several days, new peg inserted yesterday. Will be starting glucerna tube feedings later today. Albumin 3.3 * Turn q 2 hours * medihoney on unstageable ulcer * duoderm on left ear aurical ulcer Status: Acute (16) Elevated LFTs Assessment and Plan: * 08/27: Yina * Discussed with cardiology-->changed amiodarone 200mg PO tid to amiodaron 200mg PO daily * D/C tylenol * Held Statin * patient is also on Rocephin to cover for pneumonia * Will not start antifungal * 08/29: starting to down trending since change in amiodarone dose; awaiting to restart statin * 08/30: continues to trend down. Amiodarone was discontinued Status: Acute () Prophylactic measure Assessment and Plan: * Pepcid 20mg PO daily * Start Eliquis 2.5mg PO BID * s/p peg placement 08/25 * s/p trachesostomy 08/22 * s/p Permcath placement 08/22 removal Kurtis catheter * s/p right posterior chest tube 08/19-->removed 08/24 * s/p Right Arm PICC 08/26 * (Jovita Serrano): -->number provided to the nurse- ->consented for peg placement; discussed about LTAC 08/26 * Dr Mariangel Lazar spoke with Dr. Pickard, MARIAJOSE regarding patient's hospitalization up until this point 08/26 Cullen Barth D.O. Objective - Vital Signs/Intake and Output Vital Signs (last 24 hours): Temp Pulse Resp BP Pulse Ox 98.8 F 90 24 124/45 L 97 08/30/17 08:00 08/30/17 08:00 08/30/17 08:00 08/30/17 08:00 08/30/17 08:00 Intake and Output: 08/30/17 08/30/17 06:59 18:59 Intake Total 600 200 Output Total 0 0 Balance 600 200 - Medications Medications: Current Medications Albuterol/Ipratropium (Duoneb 3 Mg/0.5 Mg (3 Ml) Ud) 3 ml INH RQ4 [facility] Last Admin: 08/30/17 07:42 Dose: 3 ml Apixaban (Eliquis) 2.5 mg PO BID [facility] Last Admin: 08/29/17 17:34 Dose: 2.5 mg Aspirin (Aspirin Chewable) 81 mg PO DAILY [facility] Last Admin: 08/29/17 11:26 Dose: 81 mg Calcium Acetate (Phoslo) 2,001 mg GT TIDCC [facility] Last Admin: 08/30/17 07:34 Dose: 2,001 mg Epoetin Chencho (Procrit) 10,000 unit IV MWF [facility] Last Admin: 08/29/17 09:53 Dose: 10,000 unit Famotidine (Pepcid) 20 mg PO DAILY [facility] Last Admin: 08/29/17 11:27 Dose: 20 mg Cefepime HCl 1 gm/ Dextrose 50 mls @ 100 mls/hr IVPB Q24H [facility] Last Admin: 08/29/17 12:50 Dose: 100 mls/hr Insulin Aspart (Novolog) 0 unit SC Q6 [facility] PRN Reason: Protocol Last Admin: 08/30/17 06:00 Dose: 4 unit Insulin Detemir (Levemir) 19 unit SC Q12H [facility] Last Admin: 08/30/17 07:33 Dose: 19 unit Lactobacillus Acidophilus (Bacid Acidophilus) 1 cap PO BID [facility] Last Admin: 08/29/17 17:34 Dose: 1 cap Lisinopril (Zestril) 5 mg PO DAILY [facility] Last Admin: 08/29/17 12:51 Dose: Not Given Lorazepam (Ativan) 1 mg IVP Q2H PRN PRN Reason: Anxiety Last Admin: 08/26/17 11:10 Dose: 1 mg Metoprolol Tartrate (Lopressor) 50 mg PO BID [facility] Last Admin: 08/29/17 17:35 Dose: 50 mg Rosuvastatin Calcium (Crestor) 10 mg PO HS [facility] Last Admin: 08/26/17 22:41 Dose: 10 mg - Labs Labs: 08/30/17 06:26 08/30/17 06:26 PT 13.9 SECONDS (9.7-12.2) H 08/24/17 06:08 INR 1.2 08/24/17 06:08 APTT 55 SECONDS (21-34) H D 08/17/17 06:12
[2017-08-30] MEDS ORDERED: POLYETHYLENE GLYCOL 3350 17 GM/Dose PACKET PO ONE (10:00)
[2017-08-30] MEDS: Lactobacillus Acidophilus 500 MU Cap PO SCH ×2 (10:08→17:26)
--- NOTE | 2017-08-30 11:22 | CP.PCM.PN ---
Subjective - Date & Time of Evaluation Date of Evaluation: 08/30/17 Time of Evaluation: 11:21 - Subjective Subjective: seen and examined s/p peg and trach unable to obtain ros due to ams. at bedside. denies any diarrhea hd yestreday Objective - Vital Signs/Intake and Output Vital Signs (last 24 hours): Temp Pulse Resp BP Pulse Ox 98.8 F 101 H 14 123/57 L 95 08/30/17 08:00 08/30/17 10:01 08/30/17 10:01 08/30/17 10:01 08/30/17 10:01 Intake and Output: 08/30/17 08/30/17 06:59 18:59 Intake Total 600 450 Output Total 0 0 Balance 600 450 - Medications Medications: Current Medications Albuterol/Ipratropium (Duoneb 3 Mg/0.5 Mg (3 Ml) Ud) 3 ml INH RQ4 [facility] Last Admin: 08/30/17 07:42 Dose: 3 ml Apixaban (Eliquis) 2.5 mg PO BID [facility] Last Admin: 08/30/17 10:08 Dose: 2.5 mg Aspirin (Aspirin Chewable) 81 mg PO DAILY [facility] Last Admin: 08/30/17 10:07 Dose: 81 mg Calcium Acetate (Phoslo) 2,001 mg GT TIDCC [facility] Last Admin: 08/30/17 07:34 Dose: 2,001 mg Epoetin Chencho (Procrit) 10,000 unit IV MWF [facility] Last Admin: 08/29/17 09:53 Dose: 10,000 unit Famotidine (Pepcid) 20 mg PO DAILY [facility] Last Admin: 08/30/17 10:09 Dose: 20 mg Cefepime HCl 1 gm/ Dextrose 50 mls @ 100 mls/hr IVPB Q24H [facility] Last Admin: 08/29/17 12:50 Dose: 100 mls/hr Insulin Aspart (Novolog) 0 unit SC Q6 [facility] PRN Reason: Protocol Last Admin: 08/30/17 06:00 Dose: 4 unit Insulin Detemir (Levemir) 28 unit SC Q12 [facility] Last Admin: 08/30/17 09:58 Dose: Not Given Lactobacillus Acidophilus (Bacid Acidophilus) 1 cap PO BID [facility] Last Admin: 08/30/17 10:08 Dose: 1 cap Lisinopril (Zestril) 5 mg PO DAILY [facility] Last Admin: 08/30/17 10:19 Dose: 5 mg Lorazepam (Ativan) 1 mg IVP Q2H PRN PRN Reason: Anxiety Last Admin: 08/26/17 11:10 Dose: 1 mg Metoprolol Tartrate (Lopressor) 50 mg PO BID [facility] Last Admin: 08/30/17 10:07 Dose: 50 mg Rosuvastatin Calcium (Crestor) 10 mg PO HS [facility] Last Admin: 08/26/17 22:41 Dose: 10 mg - Labs Labs: 08/30/17 06:26 08/30/17 06:26 PT 13.9 SECONDS (9.7-12.2) H 08/24/17 06:08 INR 1.2 08/24/17 06:08 APTT 55 SECONDS (21-34) H D 08/17/17 06:12 - Constitutional Appears: No Acute Distress, Older Than Stated Age, Chronically Ill - Head Exam Head Exam: NORMAL INSPECTION - Eye Exam Eye Exam: Normal appearance - ENT Exam ENT Exam: Mucous Membranes Dry - Neck Exam Additional comments: trach-vent - Respiratory Exam Respiratory Exam: NORMAL BREATHING PATTERN (mechanical vent sounds) - Cardiovascular Exam Cardiovascular Exam: REGULAR RHYTHM, RRR - GI/Abdominal Exam GI & Abdominal Exam: Distended (peg tube), Soft - Back Exam Back Exam: NORMAL INSPECTION Assessment and Plan (1) Acute on chronic renal failure Status: Acute (2) CHF (congestive heart failure) Status: Acute (3) History of DVT (deep vein thrombosis) Status: Acute (4) CAD (coronary artery disease) Status: Acute (5) CKD (chronic kidney disease) Status: Acute - Assessment and Plan (Free Text) Assessment: maintain hd mwf placement
--- NOTE | 2017-08-30 21:06 | CP.PCM.PN ---
Subjective - Date & Time of Evaluation Date of Evaluation: 08/30/17 Time of Evaluation: 03:15 - Subjective Subjective: dictated Objective - Vital Signs/Intake and Output Vital Signs (last 24 hours): Temp Pulse Resp BP Pulse Ox 97.3 F L 73 19 127/41 L 100 08/30/17 16:00 08/30/17 19:00 08/30/17 19:00 08/30/17 19:00 08/30/17 19:00 Intake and Output: 08/30/17 08/31/17 18:59 06:59 Intake Total 1320 50 Output Total 0 Balance 1320 50 - Medications Medications: Current Medications Albuterol/Ipratropium (Duoneb 3 Mg/0.5 Mg (3 Ml) Ud) 3 ml INH RQ4 [facility] Last Admin: 08/30/17 19:19 Dose: 3 ml Apixaban (Eliquis) 2.5 mg PO BID [facility] Last Admin: 08/30/17 17:26 Dose: 2.5 mg Aspirin (Aspirin Chewable) 81 mg PO DAILY [facility] Last Admin: 08/30/17 10:07 Dose: 81 mg Calcium Acetate (Phoslo) 2,001 mg GT TIDCC [facility] Last Admin: 08/30/17 16:10 Dose: 2,001 mg Epoetin Chencho (Procrit) 10,000 unit IV MWF [facility] Last Admin: 08/29/17 09:53 Dose: 10,000 unit Famotidine (Pepcid) 20 mg PO DAILY [facility] Last Admin: 08/30/17 10:09 Dose: 20 mg Cefepime HCl 1 gm/ Dextrose 50 mls @ 100 mls/hr IVPB Q24H [facility] Last Admin: 08/30/17 12:07 Dose: 100 mls/hr Insulin Aspart (Novolog) 0 unit SC Q6 [facility] PRN Reason: Protocol Last Admin: 08/30/17 18:29 Dose: 6 unit Insulin Detemir (Levemir) 28 unit SC Q12 [facility] Last Admin: 08/30/17 09:58 Dose: Not Given Lactobacillus Acidophilus (Bacid Acidophilus) 1 cap PO BID [facility] Last Admin: 08/30/17 17:26 Dose: 1 cap Lisinopril (Zestril) 5 mg PO DAILY [facility] Last Admin: 08/30/17 10:19 Dose: 5 mg Lorazepam (Ativan) 1 mg IVP Q2H PRN PRN Reason: Anxiety Last Admin: 08/26/17 11:10 Dose: 1 mg Metoprolol Tartrate (Lopressor) 50 mg PO BID [facility] Last Admin: 08/30/17 17:26 Dose: 50 mg Rosuvastatin Calcium (Crestor) 10 mg PO HS [facility] Last Admin: 08/26/17 22:41 Dose: 10 mg - Labs Labs: 08/30/17 06:26 08/30/17 06:26 PT 13.9 SECONDS (9.7-12.2) H 08/24/17 06:08 INR 1.2 08/24/17 06:08 APTT 55 SECONDS (21-34) H D 08/17/17 06:12
--- NOTE | 2017-08-30 23:38 | CP.PCM.PN ---
Subjective - Date & Time of Evaluation Date of Evaluation: 08/30/17 Time of Evaluation: 13:40 - Subjective Subjective: Patient seen and evaluated Off Ventilator Comfortable Physical Examination - Head Exam Head Exam: NORMAL INSPECTION - Eye Exam Eye Exam: PERRL - ENT Exam ENT Exam: Mucous Membranes Moist Additional comments: trach collar in place with minimal secretions noted - Neck Exam Neck Exam: Full ROM - Respiratory Exam Respiratory Exam: NORMAL BREATHING PATTERN - Cardiovascular Exam Cardiovascular Exam: +S1, +S2. absent: JVD, Murmur - GI/Abdominal Exam GI & Abdominal Exam: Soft, Normal Bowel Sounds Additional comments: central obesity - Extremities Exam Extremities Exam: Full ROM. absent: Pedal Edema - Neurological Exam Neurological Exam: Awake. absent: Alert, Oriented x3 - Psychiatric Exam Psychiatric exam: Flat Affect - Skin Skin Exam: Dry, Normal Color, Warm Objective - Vital Signs/Intake and Output Vital Signs (last 24 hours): Temp Pulse Resp BP Pulse Ox 97.3 F L 84 12 127/45 L 98 08/30/17 16:00 08/30/17 21:00 08/30/17 21:00 08/30/17 21:00 08/30/17 21:00 Intake and Output: 08/30/17 08/31/17 18:59 06:59 Intake Total 1320 150 Output Total 0 Balance 1320 150 - Medications Medications: Current Medications Albuterol/Ipratropium (Duoneb 3 Mg/0.5 Mg (3 Ml) Ud) 3 ml INH RQ4 [facility] Last Admin: 08/30/17 19:19 Dose: 3 ml Apixaban (Eliquis) 2.5 mg PO BID [facility] Last Admin: 08/30/17 17:26 Dose: 2.5 mg Aspirin (Aspirin Chewable) 81 mg PO DAILY [facility] Last Admin: 08/30/17 10:07 Dose: 81 mg Calcium Acetate (Phoslo) 2,001 mg GT TIDCC [facility] Last Admin: 08/30/17 16:10 Dose: 2,001 mg Epoetin Chencho (Procrit) 10,000 unit IV MWF [facility] Last Admin: 08/29/17 09:53 Dose: 10,000 unit Famotidine (Pepcid) 20 mg PO DAILY [facility] Last Admin: 08/30/17 10:09 Dose: 20 mg Insulin Aspart (Novolog) 0 unit SC Q6 [facility] PRN Reason: Protocol Last Admin: 08/30/17 18:29 Dose: 6 unit Insulin Detemir (Levemir) 28 unit SC Q12 [facility] Last Admin: 08/30/17 22:57 Dose: 28 unit Lactobacillus Acidophilus (Bacid Acidophilus) 1 cap PO BID [facility] Last Admin: 08/30/17 17:26 Dose: 1 cap Lisinopril (Zestril) 5 mg PO DAILY [facility] Last Admin: 08/30/17 10:19 Dose: 5 mg Lorazepam (Ativan) 1 mg IVP Q2H PRN PRN Reason: Anxiety Last Admin: 08/26/17 11:10 Dose: 1 mg Metoprolol Tartrate (Lopressor) 50 mg PO BID [facility] Last Admin: 08/30/17 17:26 Dose: 50 mg Rosuvastatin Calcium (Crestor) 10 mg PO HS [facility] Last Admin: 08/26/17 22:41 Dose: 10 mg - Labs Labs: 08/30/17 06:26 08/30/17 06:26 PT 13.9 SECONDS (9.7-12.2) H 08/24/17 06:08 INR 1.2 08/24/17 06:08 APTT 55 SECONDS (21-34) H D 08/17/17 06:12 Assessment and Plan - Assessment and Plan (Free Text) Assessment: Atrial Flutter Intermittent Likely due to Dobutamine administration last week which has since been discontinued Amiodarone discontinued; Will monitor to see that patient is rate controlled. On Metoprolol 50 mg PO BID, Eliquis 2.5 mg PO BID CAD, chest pain -No current plans for cardiac cath (acute respiratory failure and elevated Cr) , history of abnormal stress test -Elevated Troponin likely due to chest compressions during cardiac arrest 08/10 -No acute ST changes on EKG -Continue ASA, Crestor, Metoprolol. Plavix discontinued. -Echocardiogram from 08/08/17 showed left ventricle systolic function is severely impaired. EF: 25-30%; global hypokinesis of LV mild AR. MR is moderate. Moderate-severe pulmonary hypertension Systolic CHF exacerbation -BNP 29266 on 08/06/17 -Continue ASA, Crestor, Metoprolol -Echocardiogram from 08/08/17 showed left ventricle systolic function is severely impaired. EF: 25-30%; global hypokinesis of LV mild AR. MR is moderate. Moderate-severe pulmonary hypertesnion Dobutamine discontinued in light of atrial flutter-type episodes Prophylaxis -Pepcid 20 mg PO daily -Eliquis 2.5 mg PO BID (Renal precautions) Disposition - Awaiting Transfer to LTAC
[2017-08-31] MEDS: Albuterol-Ipratrop 3 mg / 0.5 (3 ml) UD INH SCH ×5 (00:25→16:07)
[2017-08-31] MEDS: (Novolog) Insulin Aspart, Recombinant 100 u/ml 10 ml vial SC SCH ×4 (00:55→17:56)
--- NOTE | 2017-08-31 02:16 | PN ---
DATE: SUBJECTIVE: The patient was sitting in the chair today. He has a trach collar with Venturi-mask. His was at the bedside. PHYSICAL EXAMINATION: VITAL SIGNS: T-max is 98.5, pulse of 79, blood pressure 141/55 and at 12 noon it was 138/55, and respirations are 15. HEENT: Head is atraumatic and normocephalic. He still looked kind of with altered mental status. NECK: Supple. LUNGS: Decreased breath sounds bilaterally. HEART: S1 and S2 regular. ABDOMEN: Soft and nontender. No guarding. No rigidity present. EXTREMITIES: Trace edema. LABORATORY DATA: At this time, his lab show white count is 13.2, hemoglobin 9.2, hematocrit 29.5, platelet count is 466, neutrophils are 79.1, so they are looking better. His kidney function still remain worse at BUN 78, creatinine 6.0, and his sugars remains a little high. LFTs; ALT is 66, alkaline phosphatase is 172, and his white count has come down dramatically, is coming down now. He has been on Maxipime from 08/19/2017, so I will discontinue it now and will follow, stop cefepime and follow clinically how he does. He did receive more antibiotics for a longtime and is improving. We will follow. Off of antibiotics and repeat the labs tomorrow. Allan Lawrence MD
[2017-08-31 06:46] LABS: BASO # 0.1 K/uL (0.0-0.2); BASO % 0.5 % (0.0-2.0); EOS # 0.4 K/uL (0.0-0.7); EOS % 2.7 % (0.0-4.0); HEMATOCRIT 29.8 % (35.0-51.0); LYMPH # 1.3 K/uL (1.0-4.3); LYMPH % 7.9 % (20.0-40.0); MEAN CELL VOLUME 75.2 fL (80.0-94.0); MEAN CORPUSCULAR HEMOGLOBIN 23.7 pg (27.0-31.0); MEAN CORPUSCULAR HGB CONC 31.5 g/dL (33.0-37.0); MEAN PLATELET VOLUME 8.7 fL (7.2-11.7); MONO # 1.1 K/uL (0.0-0.8); MONO % 6.9 % (0.0-10.0); PLATELET COUNT 491 K/uL (130-400); WHITE BLOOD COUNT 16.2 K/uL (4.8-10.8)
[2017-08-31 07:00] LABS: ALB/GLOB RATIO 0.7 (1.0-2.1); BILIRUBIN,TOTAL 0.5 mg/dL (0.2-1.3); CALCIUM 9.7 mg/dl (8.6-10.4); POTASSIUM 4.7 mmol/L (3.6-5.2); TOTAL PROTEIN 7.7 g/dL (6.3-8.3)
[2017-08-31 08:28] LABS: BASOPHIL 1 % (0-2); EOSINOPHIL 1 % (0-4); MYELOCYTE 1 % (0-0); NEUTROPHIL 82 % (50-75); TOTAL CELLS COUNTED 100
[2017-08-31] MEDS: Insulin Detemir 100 units/ml Vial (Levemir) SC SCH ×2 (10:30→22:05)
[2017-08-31] MEDS: EPOETIN ALFA 10,000 UNIT/ML ML IV SCH (10:51)
--- NOTE | 2017-08-31 13:10 | CP.PCM.PN ---
<Darryl Roe - Last Filed: 08/31/17 13:18> Subjective - Date & Time of Evaluation Date of Evaluation: 08/31/17 Time of Evaluation: 10:11 - Subjective Subjective: Cardiology Progress Note- Dr. Cortés's service Patient seen and examined. Patient does not directly follow commands when spoken to. He does move arms and look from side to side but not in response to one's direction. Patient s/p tracheostomy and peg placement. Patient is off ventilator. Patient not able to respond to ROS at this time due to his clinical status. Objective - Vital Signs/Intake and Output Vital Signs (last 24 hours): Temp Pulse Resp BP Pulse Ox 98.7 F 105 H 31 H 105/36 L 100 08/31/17 09:35 08/31/17 11:32 08/31/17 11:32 08/31/17 12:35 08/31/17 11:32 Intake and Output: 08/31/17 08/31/17 06:59 18:59 Intake Total 600 350 Balance 600 350 - Medications Medications: Current Medications Albuterol/Ipratropium (Duoneb 3 Mg/0.5 Mg (3 Ml) Ud) 3 ml INH RQ4 [facility] Last Admin: 08/31/17 11:52 Dose: 3 ml Apixaban (Eliquis) 2.5 mg PO BID [facility] Last Admin: 08/30/17 17:26 Dose: 2.5 mg Aspirin (Aspirin Chewable) 81 mg PO DAILY [facility] Last Admin: 08/30/17 10:07 Dose: 81 mg Calcium Acetate (Phoslo) 2,001 mg GT TIDCC [facility] Last Admin: 08/31/17 08:47 Dose: 2,001 mg Epoetin Chencho (Procrit) 10,000 unit IV MWF [facility] Last Admin: 08/31/17 10:51 Dose: 10,000 unit Famotidine (Pepcid) 20 mg PO DAILY [facility] Last Admin: 08/30/17 10:09 Dose: 20 mg Insulin Aspart (Novolog) 0 unit SC Q6 [facility] PRN Reason: Protocol Last Admin: 08/31/17 06:37 Dose: 3 unit Insulin Detemir (Levemir) 28 unit SC Q12 [facility] Last Admin: 08/30/17 22:57 Dose: 28 unit Lactobacillus Acidophilus (Bacid Acidophilus) 1 cap PO BID [facility] Last Admin: 08/30/17 17:26 Dose: 1 cap Lisinopril (Zestril) 5 mg PO DAILY [facility] Last Admin: 08/30/17 10:19 Dose: 5 mg Lorazepam (Ativan) 1 mg IVP Q2H PRN PRN Reason: Anxiety Last Admin: 08/26/17 11:10 Dose: 1 mg Metoprolol Tartrate (Lopressor) 50 mg PO BID [facility] Last Admin: 08/30/17 17:26 Dose: 50 mg Rosuvastatin Calcium (Crestor) 10 mg PO HS [facility] Last Admin: 08/26/17 22:41 Dose: 10 mg - Labs Labs: 08/31/17 06:36 08/31/17 06:36 PT 13.9 SECONDS (9.7-12.2) H 08/24/17 06:08 INR 1.2 08/24/17 06:08 APTT 55 SECONDS (21-34) H D 08/17/17 06:12 - Constitutional Appears: Non-toxic - Head Exam Head Exam: NORMAL INSPECTION - Eye Exam Eye Exam: PERRL - ENT Exam ENT Exam: Mucous Membranes Moist Additional comments: trach collar in place - Neck Exam Neck Exam: Full ROM - Respiratory Exam Respiratory Exam: NORMAL BREATHING PATTERN. absent: Wheezes - Cardiovascular Exam Cardiovascular Exam: +S1, +S2. absent: Murmur - GI/Abdominal Exam GI & Abdominal Exam: Soft Additional comments: central obesity - Extremities Exam Extremities Exam: Full ROM. absent: Pedal Edema - Neurological Exam Neurological Exam: Awake. absent: Alert - Psychiatric Exam Psychiatric exam: Flat Affect - Skin Skin Exam: Dry, Warm Assessment and Plan (1) Chest pain Status: Acute (2) CHF exacerbation Status: Chronic (3) Pneumonia Status: Acute (4) CAD (coronary artery disease) Status: Chronic (5) HTN (hypertension) Status: Chronic (6) CKD (chronic kidney disease) Status: Chronic (7) Diabetes mellitus Status: Chronic (8) HLD (hyperlipidemia) Status: Chronic (9) Constipation Status: Chronic (10) Anemia Status: Chronic (11) History of DVT (deep vein thrombosis) Status: Acute (12) Prophylactic measure Status: Acute - Assessment and Plan (Free Text) Assessment: Atrial Flutter Intermittent Likely due to Dobutamine administration last week which has since been discontinued Amiodarone discontinued; Will monitor to see that patient is rate controlled. On Metoprolol 50 mg PO BID, Eliquis 2.5 mg PO BID CAD, chest pain -No current plans for cardiac cath (acute respiratory failure and elevated Cr) , history of abnormal stress test -Elevated Troponin likely due to chest compressions during cardiac arrest 08/10 -No acute ST changes on EKG -Continue ASA, Crestor, Metoprolol. Plavix discontinued. -Echocardiogram from 08/08/17 showed left ventricle systolic function is severely impaired. EF: 25-30%; global hypokinesis of LV mild AR. MR is moderate. Moderate-severe pulmonary hypertension Systolic CHF exacerbation -BNP 21994 on 08/06/17 -Continue ASA, Crestor, Metoprolol -Echocardiogram from 08/08/17 showed left ventricle systolic function is severely impaired. EF: 25-30%; global hypokinesis of LV mild AR. MR is moderate. Moderate-severe pulmonary hypertesnion Dobutamine discontinued in light of atrial flutter-type episodes Diabetes Mellitus Elevated levels overnight ISS Continue to monitor ESRD on HD On Procrit and Phoslo Nephro on the case Prophylaxis Pepcid 20 mg PO daily Eliquis 2.5 mg PO BID (Renal precautions) Disposition Awaiting Transfer to LTAC Discussed with attending. All management and planning per Dr. Cortés <Sina Cortés - Last Filed: 08/31/17 21:42> Objective - Vital Signs/Intake and Output Vital Signs (last 24 hours): Temp Pulse Resp BP Pulse Ox 97.6 F 91 H 15 115/44 L 94 L 08/31/17 20:00 08/31/17 21:00 08/31/17 21:00 08/31/17 19:12 08/31/17 21:00 Intake and Output: 08/31/17 09/01/17 18:59 06:59 Intake Total 950 150 Balance 950 150 - Medications Medications: Current Medications Albuterol/Ipratropium (Duoneb 3 Mg/0.5 Mg (3 Ml) Ud) 3 ml INH RQ6 [facility] Apixaban (Eliquis) 2.5 mg PO BID [facility] Last Admin: 08/31/17 17:57 Dose: 2.5 mg Aspirin (Aspirin Chewable) 81 mg PO DAILY [facility] Last Admin: 08/31/17 13:53 Dose: 81 mg Calcium Acetate (Phoslo) 2,001 mg GT TIDCC [facility] Last Admin: 08/31/17 17:57 Dose: 2,001 mg Epoetin Chencho (Procrit) 10,000 unit IV MWF [facility] Last Admin: 08/31/17 10:51 Dose: 10,000 unit Famotidine (Pepcid) 20 mg PO DAILY [facility] Last Admin: 08/31/17 13:53 Dose: 20 mg Insulin Aspart (Novolog) 0 unit SC Q6 [facility] PRN Reason: Protocol Last Admin: 08/31/17 17:56 Dose: 5 unit Insulin Detemir (Levemir) 28 unit SC Q12 [facility] Last Admin: 08/31/17 10:30 Dose: 28 unit Lactobacillus Acidophilus (Bacid Acidophilus) 1 cap PO BID [facility] Last Admin: 08/31/17 17:57 Dose: 1 cap Lisinopril (Zestril) 5 mg PO DAILY [facility] Last Admin: 08/31/17 13:54 Dose: 5 mg Lorazepam (Ativan) 1 mg IVP Q2H PRN PRN Reason: Anxiety Last Admin: 08/26/17 11:10 Dose: 1 mg Metoprolol Tartrate (Lopressor) 50 mg PO BID [facility] Last Admin: 08/31/17 17:57 Dose: 50 mg Rosuvastatin Calcium (Crestor) 10 mg PO HS [facility] Last Admin: 08/26/17 22:41 Dose: 10 mg - Labs Labs: 08/31/17 06:36 08/31/17 06:36 PT 13.9 SECONDS (9.7-12.2) H 08/24/17 06:08 INR 1.2 08/24/17 06:08 APTT 55 SECONDS (21-34) H D 08/17/17 06:12 Assessment and Plan - Assessment and Plan (Free Text) Assessment: Patient seen and evaluated with the medical affairs specialist Plan of care as documented
--- NOTE | 2017-08-31 13:22 | CP.PCM.PN ---
Subjective - Date & Time of Evaluation Date of Evaluation: 08/31/17 Time of Evaluation: 13:20 - Subjective Subjective: Seen at dialysis today UF around 2000ml More alert; baseline confusion Off vent s/p PEG, trach Cannot obtain further ROS Labs improved Objective - Vital Signs/Intake and Output Vital Signs (last 24 hours): Temp Pulse Resp BP Pulse Ox 97.7 F 104 H 31 H 113/38 L 98 08/31/17 13:05 08/31/17 13:05 08/31/17 11:32 08/31/17 13:05 08/31/17 13:05 Intake and Output: 08/31/17 08/31/17 06:59 18:59 Intake Total 600 350 Balance 600 350 - Medications Medications: Current Medications Albuterol/Ipratropium (Duoneb 3 Mg/0.5 Mg (3 Ml) Ud) 3 ml INH RQ4 [facility] Last Admin: 08/31/17 11:52 Dose: 3 ml Apixaban (Eliquis) 2.5 mg PO BID [facility] Last Admin: 08/30/17 17:26 Dose: 2.5 mg Aspirin (Aspirin Chewable) 81 mg PO DAILY [facility] Last Admin: 08/30/17 10:07 Dose: 81 mg Calcium Acetate (Phoslo) 2,001 mg GT TIDCC [facility] Last Admin: 08/31/17 08:47 Dose: 2,001 mg Epoetin Chencho (Procrit) 10,000 unit IV MWF [facility] Last Admin: 08/31/17 10:51 Dose: 10,000 unit Famotidine (Pepcid) 20 mg PO DAILY [facility] Last Admin: 08/30/17 10:09 Dose: 20 mg Insulin Aspart (Novolog) 0 unit SC Q6 [facility] PRN Reason: Protocol Last Admin: 08/31/17 06:37 Dose: 3 unit Insulin Detemir (Levemir) 28 unit SC Q12 [facility] Last Admin: 08/30/17 22:57 Dose: 28 unit Lactobacillus Acidophilus (Bacid Acidophilus) 1 cap PO BID [facility] Last Admin: 08/30/17 17:26 Dose: 1 cap Lisinopril (Zestril) 5 mg PO DAILY [facility] Last Admin: 08/30/17 10:19 Dose: 5 mg Lorazepam (Ativan) 1 mg IVP Q2H PRN PRN Reason: Anxiety Last Admin: 08/26/17 11:10 Dose: 1 mg Metoprolol Tartrate (Lopressor) 50 mg PO BID [facility] Last Admin: 08/30/17 17:26 Dose: 50 mg Rosuvastatin Calcium (Crestor) 10 mg PO HS [facility] Last Admin: 08/26/17 22:41 Dose: 10 mg - Labs Labs: 08/31/17 06:36 08/31/17 06:36 PT 13.9 SECONDS (9.7-12.2) H 08/24/17 06:08 INR 1.2 08/24/17 06:08 APTT 55 SECONDS (21-34) H D 08/17/17 06:12 - Constitutional Appears: No Acute Distress, Chronically Ill - Head Exam Head Exam: ATRAUMATIC, NORMAL INSPECTION - Eye Exam Eye Exam: EOMI, Normal appearance - Neck Exam Neck Exam: Normal Inspection. absent: Tenderness - Cardiovascular Exam Cardiovascular Exam: REGULAR RHYTHM, +S1 - GI/Abdominal Exam GI & Abdominal Exam: Soft. absent: Tenderness - Neurological Exam Neurological Exam: Altered, CN II-XII Intact - Skin Skin Exam: Dry, Warm Assessment and Plan (1) Acute on chronic renal failure Status: Acute (2) CAD (coronary artery disease) Status: Acute (3) CHF exacerbation Status: Chronic (4) Type 2 diabetes mellitus with diabetic nephropathy Status: Acute (5) CKD stage 4 due to type 2 diabetes mellitus Status: Acute (6) Cardiorenal disease Status: Acute (7) ESRD (end stage renal disease) Status: Acute - Assessment and Plan (Free Text) Plan: Same dialysis MWF Follow up labs for LTC facility
[2017-08-31] MEDS: Lactobacillus Acidophilus 500 MU Cap PO SCH ×2 (13:54→17:57)
--- NOTE | 2017-08-31 14:39 | CP.PCM.PN ---
Subjective - Date & Time of Evaluation Date of Evaluation: 08/31/17 Time of Evaluation: 14:35 - Subjective Subjective: Hospitalist Progress Note Patient was seen and examined at 2:35 PM 08/31/17 ICU Bed #5. 77 year old male with extensive medical history (please see Assessment and Plans below) was admitted on 08/06/17 for evaluation of SOB and Chest Pain. He was planned for Cardiac Catheterization on 08/09/17. Patient then had Acute Respiratory Failure and had to be intubated and placed on vent. He is S/P Tracheostomy 08/22/17 and PEG Tube Placement 08/25/17. Please see details below. ROS are not possible as although patient is awake he is not answering (shaking his head yes or no) Exam: - Head Exam Head Exam: NORMAL INSPECTION - Eye Exam Eye Exam: could not evaluate EOM due to patient's current status Pupil Exam: round, equal, and reactive to light - Respiratory Exam Respiratory Exam: Decreased Breath Sounds bilateral lower lung buchanan but limited due to lack of patient participation Additional comments: Trach Collar - Cardiovascular Exam Cardiovascular Exam: REGULAR RHYTHM, +S1, +S2 - GI/Abdominal Exam GI & Abdominal Exam: Distended, Soft, Normal Bowel Sounds, could not palpate liver and spleen, PEG Tube Insertion Site LUQ without evidence of cellutlitis. absent: Firm, Guarding, Rigid, Tenderness, Rebound Additional comments: obese habitus - Extremities Exam Extremities Exam: Normal Capillary Refill, Pedal Edema. absent: Tenderness Additional comments: Prevalon boots b/l - Neurological Exam Additional comments: Could not be performed due to lack of patient participation - Skin Skin Exam: Unstageable Sacral Ulcer. Shallow Ulcer Left outer ear Assessment and Plan - Assessment and Plan (Free Text) Assessment: (1) Acute Respiratory Failure ARDS Cardiac Arrest Pulmonary Edema Nonstemi Assessment and Plan: * Code Blue on 08/10: asystole, cardiopulmonary resuscitative measures initiated , requiring 3 epis, bicarbonate, ROSC achieved and intubated and brought to the ICU for further management; Patient in the ICU from 08/10 until present. * Pulmonary: Dr Mena (Dr. Jeffers covering until 09/04/17)-->help appreciated * Cardiology: Dr. Cortés on board-->help appreciated * GI (Dr. Wills) on board-->help appreciated * S/P Tracheostomy 08/22 * S/P Peg tube placement 08/25 * s/p insertion of right posterior chest tube 08/19-->removed 08/24/17 * There was consideration for possible thoracentesis of left side pleural effusion, evaluated by IR, there is no fluid to drain per Dr. Gross * Chest xray (08/26): right arm PICC is seen with the tip of distal subclavian vein. PICC may be used * Per cardiology, * Restart Aspirin 81mg PO daily * Patient does not need Plavix at this time * Recommend for Eliquis 2.5mg PO BID for atrial flutter * 08/27: patient is pending LTAC, he went eventually need cardiac catheterization when he has stabilized. Held statin secondary to elevated LFTs. Discussed with Dr. Cortés, lowered Amiodarone 200mg PO daily * 08/28: patient is pending LTAC, he went eventually need cardiac catheterization when he has stabilized. Liver function tests improving * 08/29: [facility] has sent request to insurance for authorization for LTAC (2) Abnormal Stress Test History of AICD History of Coronary Artery Disease Assessment and Plan: * Cardiology (Dr. Cortés) on board-->help appreciated * TSH: 1.16; T4: 1.53 * Echocardiogram (08/08/17): left ventricle systolic function is severely impaired. EF: 25-30%; global hypokinesis of left ventricle mild aortic regurgitation. Mitral regurgitation is moderate. Moderate-severe pulmonary hypertension * Plan was for cardiac catheterization; delayed due to acute renal failure; Attempted gentle hydration and mucomyst on 08/09 to optimize prior to cath * On 08/10, patient was in asystole, ACLS protocol, ROSC achieved, intubated and transfered to the ICU. Patient in acute pulmonary edema. * Patient hospitalized in the ICU since 08/10/17 to present. * Medications: * Aspirin 81mg PO daily * Plavix d/c by cardiology * Lopressor 50mg PO bid * d/c Crestor 10mg POqHS secondary to rise in LFTS 08/27--->monitor LFTs daily * ARB d/c secondary to acute renal failure * 08/27: patient is pending LTAC, he went eventually need cardiac catheterization when he has stabilized. Held statin secondary to elevated LFTs. Discussed with Dr. Cortés, lowered Amiodarone 200mg PO daily * 08/28: patient is pending LTAC. He will eventually need cardiac catheterrization when he has stabilized. Liver function tests improving. Statin is on hold (3) Atrial flutter Assessment and Plan: * Cardiology (Dr. Cortés) on board-->help appreciated * Refractory to Lopressor/Cardizem IVP * Eliquis 2.5mg PO bid * Amiodarone bolus-->Amiodarine drip on 08/24-->converted to Amiodarone 200mg PO TID on 08/26 and this was decreased to 200 mg 1x/day due to increased LFTs * 08/27: Discussed with Dr. Cortés, will lower Amiodarone 200mg PO daily and monitor LFTs. Statin held and tylenol d/c * 08/29: patient is pending LTAC, he will eventually need cardiac catheterization when he has stabilized. Liver function tests improving. Statin is on hold * 08/30: Cardiology discontinued the Amiodarone Status: Acute (4) Acute on Chronic Systolic CHF exacerbation Assessment and Plan: * Cardiology (Dr. Cortés) on board-->help appreciated * Transferred to the ICU on 08/10 following cardiac arrest and intubation. * Echocardiogram (08/08/17): left ventricular systolic function is severely impaired. EF: 25-30%; global hypokinesis of left ventricle mild aortic regurgitation. Mitral regurgitation is moderate. Moderate-severe pulmonary hypertension * Medications: * Aspirin 81mg PO daily * Plavix d/c by cardiology * Lopressor 50mg PO bid * d/c Crestor 10mg POqHS on 08/27 secondary to rise in LFTs * ARB d/c secondary to acute renal failure Status: Acute (5) Leukocytosis Assessment and Plan: * Patient's white count rising * Procalcitonin elevated * Pleural Fluid 08/19/17 did not show any growth * Blood cultures (08/26): no growth After 48hours X2 * UA and urine culture (08/27): pending * Patient has elevated LFTs-->did not start anti-fungal in light of LFTs Status: Acute (6) Pneumonia Assessment and Plan: * Pulmonary (Dr. Mena) on board-->help appreciated; Dr. Jeffers covering while Dr. Mena away * Infectious Disease (Dr. Lawrence)-->help appreciated * Chest xray (08/26): right arm PICC is seen with the tip of distal subclavian vein. PICC may be used * Rapid A strep, Influenza A and B studies, Urine Legionella, Mycoplasma studies = Negative * Florastor 250mg PO bid * 08/07/17: +Strep Pneumoniae in the urine * Meropenem 500mg IV Q 8 hours (08/14/17 through 08/18/17) and Zosyn 2.25 mg IV Q6H (08/13/17 through 08/18/17) * Cefepime 1 gm IV Q24H: started on 08/19/17 and was discontinued by ID Dr. Dwyer on 08/30/17: monitor vitals and labs * s/p right posterior chest tube 08/19-08/24 * Sputum Culture 08/19/17 shows No growth * Pleural fluid 08/19/17: No growth Status: Acute (7) HTN (hypertension) Assessment and Plan: * Lopressor 50mg PO bid Status: Chronic (8) CKD (chronic kidney disease) on Dialysis Assessment and Plan: * Dr. Miranda (nephrology) consulted on the case * Hx of CKD-->Started on dialysis 08/15/17 * Kurtis catheter placed and removed 08/22 * s/p Right Chest Permcath 08/22 * Patient is on dialysis; oliguric * Phoslo 1334mg GT TID * Epoetin 10,000 unit IV MWF Status: Acute (9) Diabetes mellitus Assessment and Plan: * Accuchecks Q6H * HgbA1c 8.4 * Levemir 16 units subq12 * Start peg feedings on 08/26/17 * Nepro-->50 ml/hour (10) HLD (hyperlipidemia) Assessment and Plan: * 08/27: held Crestor 10 mg PO HS secondary to rise in LFTs * 08/29: Liver function tests improving; waiting to restart statin Status: Chronic (11) Anemia Assessment and Plan: * Heme-oncology (Dr. Giles bender) on board-->help appreciated * Likely iron deficiency anemia based on prior admissions * Ferritin 27.4, Iron 22, TIBC 322, % Saturation 7 * Ferric Sodium Gluconate 125mg IVPB daily (active 08/08-08/16) * Procrit 10,000 units M-W-F * Monitor Hgb/Hct: stable Status: Chronic (12) History of DVT (deep vein thrombosis) Assessment and Plan: * Patient was previously on Eliquis for a prior history of DVT. * Repeat dopplers 08/09/17 are negative for DVT * Off Heparin Drip 08/17/17 * Start Eliquis 2.5mg PO BID for atrial flutter and history of DVT Status: Chronic (13) UTI Assessment and Plan: * Infectious disease (Dr. Lawrence) on board-->help appreciated * Exchange jaquez out and repeat urine cultures * Urine Culture 08/12/17 showed Gram Negative Rods: NO identification and NO sensitivities were performed * Meropenem 500mg IV Q 12hours (active since 08/14/17 through 08/18/17) to cover for UTI per ID * Repeat Urine Culture 08/18/17 shows NO growth * 08/25: reculture in light of leukocytosis * 08/27: pending urine studies * 08/30: Urine Culture 08/27/17 showed Yeast Species but no antifungal secondary to recent history of Elevated LFTs Status: Chronic (14) Confusion; Alzheimer's Dementia Assessment and Plan: * Per daughter, patient has been getting bouts of confusion over the past year but appears at baseline. Patient has not seen formal neurology as outpatient per daughter. Per , prior to event, noted Alzheimers' disease dx one year ago * CT head w/o contrast (08/10/17):acute os subacute lacune infarct is not excluded in the left basal ganglia inferiorly with definitive chronic lacune identified in the right basal ganglia superiorly. No acute or subacute lobar brain infarction is appreciable by standard CT criteria. Mild age-related neuro degenerative changes are identifed. 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 No changes to dimensions at this time. Also, pt favoring Left side of head and has developed a 1x1 serous filled blister on his left ear. Primary nurse placed duoderm on the ear. Wound care nurse left duoderm in place , and recommends leaving it on until it falls off on its own. Pt has been NPO for several days, new peg inserted yesterday. Will be starting glucerna tube feedings later today. Albumin 3.3 * Turn q 2 hours * medihoney on unstageable ulcer * duoderm on left ear aurical ulcer Status: Acute (16) Elevated LFTs Assessment and Plan: * 08/27: Yina * Discussed with cardiology-->changed amiodarone 200mg PO tid to amiodaron 200mg PO daily * D/C tylenol * Held Statin * patient is also on Rocephin to cover for pneumonia * Will not start antifungal * 08/29: starting to down trending since change in amiodarone dose; awaiting to restart statin * 08/30: continues to trend down. Amiodarone was discontinued Status: Acute (17) Prophylactic measure Assessment and Plan: * Pepcid 20mg PO daily * Start Eliquis 2.5mg PO BID * s/p peg placement 08/25 * s/p trachesostomy 08/22 * s/p Permcath placement 08/22 removal Kurtis catheter * s/p right posterior chest tube 08/19-->removed 08/24 * s/p Right Arm PICC 08/26 * (Jovita Serrano): -->number provided to the nurse- ->consented for peg placement; discussed about LTAC 08/26 * Dr Mariangel Lazar spoke with Dr. Pickard, MARIAJOSE regarding patient's hospitalization up until this point 08/26 I spoke with Nurse Fontaine and patient has not had a bowel movement since . 1 dose of Miraalax was given 08/30/17 but still no bowel movement. 1 dose of Lactulose 20 gm ordered and if this does not work then will try Fleet Enema on 09/01/17. Still awaiting LTAC placement. Cullen Barth D.O. Objective - Vital Signs/Intake and Output Vital Signs (last 24 hours): Temp Pulse Resp BP Pulse Ox 97.7 F 104 H 31 H 113/38 L 98 08/31/17 13:05 08/31/17 13:05 08/31/17 11:32 08/31/17 13:05 08/31/17 13:05 Intake and Output: 08/31/17 08/31/17 06:59 18:59 Intake Total 600 350 Balance 600 350 - Medications Medications: Current Medications Albuterol/Ipratropium (Duoneb 3 Mg/0.5 Mg (3 Ml) Ud) 3 ml INH RQ4 [facility] Last Admin: 08/31/17 11:52 Dose: 3 ml Apixaban (Eliquis) 2.5 mg PO BID [facility] Last Admin: 08/31/17 13:53 Dose: 2.5 mg Aspirin (Aspirin Chewable) 81 mg PO DAILY [facility] Last Admin: 08/31/17 13:53 Dose: 81 mg Calcium Acetate (Phoslo) 2,001 mg GT TIDCC [facility] Last Admin: 08/31/17 13:57 Dose: 2,001 mg Epoetin Chencho (Procrit) 10,000 unit IV MWF [facility] Last Admin: 08/31/17 10:51 Dose: 10,000 unit Famotidine (Pepcid) 20 mg PO DAILY [facility] Last Admin: 08/31/17 13:53 Dose: 20 mg Insulin Aspart (Novolog) 0 unit SC Q6 [facility] PRN Reason: Protocol Last Admin: 08/31/17 12:40 Dose: 3 unit Insulin Detemir (Levemir) 28 unit SC Q12 [facility] Last Admin: 08/31/17 10:30 Dose: 28 unit Lactobacillus Acidophilus (Bacid Acidophilus) 1 cap PO BID [facility] Last Admin: 08/31/17 13:54 Dose: 1 cap Lisinopril (Zestril) 5 mg PO DAILY [facility] Last Admin: 08/31/17 13:54 Dose: 5 mg Lorazepam (Ativan) 1 mg IVP Q2H PRN PRN Reason: Anxiety Last Admin: 08/26/17 11:10 Dose: 1 mg Metoprolol Tartrate (Lopressor) 50 mg PO BID [facility] Last Admin: 08/31/17 13:54 Dose: 50 mg Rosuvastatin Calcium (Crestor) 10 mg PO HS [facility] Last Admin: 08/26/17 22:41 Dose: 10 mg - Labs Labs: 08/31/17 06:36 08/31/17 06:36 PT 13.9 SECONDS (9.7-12.2) H 08/24/17 06:08 INR 1.2 08/24/17 06:08 APTT 55 SECONDS (21-34) H D 08/17/17 06:12
--- NOTE | 2017-08-31 16:07 | CP.PCM.PN ---
Subjective - Date & Time of Evaluation Date of Evaluation: 08/31/17 Time of Evaluation: 07:00 - Subjective Subjective: PGY1- Medicine Note- Dr. Barth's Service Patient seen and examined at bedside. S/P Tracheostomy 08/22/17 and PEG Tube Placement 08/25/17. Patient opened eyes to verbal stimuli. ROS unobtainable due to current status. Objective - Vital Signs/Intake and Output Vital Signs (last 24 hours): Temp Pulse Resp BP Pulse Ox 97.7 F 110 H 36 H 104/44 L 98 08/31/17 13:05 08/31/17 14:11 08/31/17 14:11 08/31/17 14:11 08/31/17 14:11 Intake and Output: 08/31/17 08/31/17 06:59 18:59 Intake Total 600 650 Balance 600 650 - Medications Medications: Current Medications Albuterol/Ipratropium (Duoneb 3 Mg/0.5 Mg (3 Ml) Ud) 3 ml INH RQ4 [facility] Last Admin: 08/31/17 11:52 Dose: 3 ml Apixaban (Eliquis) 2.5 mg PO BID [facility] Last Admin: 08/31/17 13:53 Dose: 2.5 mg Aspirin (Aspirin Chewable) 81 mg PO DAILY [facility] Last Admin: 08/31/17 13:53 Dose: 81 mg Calcium Acetate (Phoslo) 2,001 mg GT TIDCC [facility] Last Admin: 08/31/17 13:57 Dose: 2,001 mg Epoetin Chencho (Procrit) 10,000 unit IV MWF [facility] Last Admin: 08/31/17 10:51 Dose: 10,000 unit Famotidine (Pepcid) 20 mg PO DAILY [facility] Last Admin: 08/31/17 13:53 Dose: 20 mg Insulin Aspart (Novolog) 0 unit SC Q6 [facility] PRN Reason: Protocol Last Admin: 08/31/17 12:40 Dose: 3 unit Insulin Detemir (Levemir) 28 unit SC Q12 [facility] Last Admin: 08/31/17 10:30 Dose: 28 unit Lactobacillus Acidophilus (Bacid Acidophilus) 1 cap PO BID [facility] Last Admin: 08/31/17 13:54 Dose: 1 cap Lisinopril (Zestril) 5 mg PO DAILY [facility] Last Admin: 08/31/17 13:54 Dose: 5 mg Lorazepam (Ativan) 1 mg IVP Q2H PRN PRN Reason: Anxiety Last Admin: 08/26/17 11:10 Dose: 1 mg Metoprolol Tartrate (Lopressor) 50 mg PO BID [facility] Last Admin: 08/31/17 13:54 Dose: 50 mg Rosuvastatin Calcium (Crestor) 10 mg PO HS [facility] Last Admin: 08/26/17 22:41 Dose: 10 mg - Labs Labs: 08/31/17 06:36 08/31/17 06:36 PT 13.9 SECONDS (9.7-12.2) H 08/24/17 06:08 INR 1.2 08/24/17 06:08 APTT 55 SECONDS (21-34) H D 08/17/17 06:12 - Constitutional Appears: Non-toxic, No Acute Distress, Chronically Ill - Head Exam Head Exam: ATRAUMATIC, NORMAL INSPECTION, NORMOCEPHALIC Additional comments: ulcer on left oracle - Eye Exam Eye Exam: EOMI, Normal appearance - ENT Exam ENT Exam: Mucous Membranes Moist - Neck Exam Additional comments: trach in place - Respiratory Exam Respiratory Exam: Rales Additional comments: trach in place - Cardiovascular Exam Cardiovascular Exam: REGULAR RHYTHM, +S1, +S2 - GI/Abdominal Exam GI & Abdominal Exam: Soft, Normal Bowel Sounds. absent: Tenderness Additional comments: PEG Tube Insertion Site LUQ - Extremities Exam Extremities Exam: Pedal Edema. absent: Tenderness Additional comments: prevalon boots b/l - Back Exam Additional comments: unstageable sacral ulcer - Neurological Exam Neurological Exam: Alert, Awake. absent: Oriented x3 - Skin Skin Exam: Normal Color, Warm Additional comments: Unstageable sacral ulcer. Shallow ulcer left oracle Assessment and Plan - Assessment and Plan (Free Text) Assessment: (1) Acute Respiratory Failure ARDS Cardiac Arrest Pulmonary Edema Nonstemi Assessment and Plan: * Code Blue on 08/10: asystole, cardiopulmonary resuscitative measures initiated , requiring 3 epis, bicarbonate, ROSC achieved and intubated and brought to the ICU for further management; Patient in the ICU from 08/10 until present. * Pulmonary: Dr Mena (Dr. Jeffers covering until 09/04/17)-->help appreciated * Cardiology: Dr. Cortés on board-->help appreciated * GI (Dr. Wills) on board-->help appreciated * S/P Tracheostomy 08/22 * S/P Peg tube placement 08/25 * s/p insertion of right posterior chest tube 08/19-->removed 08/24/17 * There was consideration for possible thoracentesis of left side pleural effusion, evaluated by IR, there is no fluid to drain per Dr. Gross * Chest xray (08/26): right arm PICC is seen with the tip of distal subclavian vein. PICC may be used * Per cardiology, * Restart Aspirin 81mg PO daily * Patient does not need Plavix at this time * Recommend for Eliquis 2.5mg PO BID for atrial flutter * 08/27: patient is pending LTAC, he went eventually need cardiac catheterization when he has stabilized. Held statin secondary to elevated LFTs. Discussed with Dr. Cortés, lowered Amiodarone 200mg PO daily * 08/28: patient is pending LTAC, he went eventually need cardiac catheterization when he has stabilized. Liver function tests improving * 08/29: [employer] has sent request to insurance for authorization for LTAC (2) Abnormal Stress Test History of AICD History of Coronary Artery Disease Assessment and Plan: * Cardiology (Dr. Cortés) on board-->help appreciated * TSH: 1.16; T4: 1.53 * Echocardiogram (08/08/17): left ventricle systolic function is severely impaired. EF: 25-30%; global hypokinesis of left ventricle mild aortic regurgitation. Mitral regurgitation is moderate. Moderate-severe pulmonary hypertension * Plan was for cardiac catheterization; delayed due to acute renal failure; Attempted gentle hydration and mucomyst on 08/09 to optimize prior to cath * On 08/10, patient was in asystole, ACLS protocol, ROSC achieved, intubated and transfered to the ICU. Patient in acute pulmonary edema. * Patient hospitalized in the ICU since 08/10/17 to present. * Medications: * Aspirin 81mg PO daily * Plavix d/c by cardiology * Lopressor 50mg PO bid * d/c Crestor 10mg POqHS secondary to rise in LFTS 08/27--->monitor LFTs daily * ARB d/c secondary to acute renal failure * 08/27: patient is pending LTAC, he went eventually need cardiac catheterization when he has stabilized. Held statin secondary to elevated LFTs. Discussed with Dr. Cortés, lowered Amiodarone 200mg PO daily * 08/28: patient is pending LTAC. He will eventually need cardiac catheterrization when he has stabilized. Liver function tests improving. Statin is on hold (3) Atrial flutter Assessment and Plan: * Cardiology (Dr. Cortés) on board-->help appreciated * Refractory to Lopressor/Cardizem IVP * Eliquis 2.5mg PO bid * Amiodarone bolus-->Amiodarine drip on 08/24-->converted to Amiodarone 200mg PO TID on 08/26 and this was decreased to 200 mg 1x/day due to increased LFTs * 08/27: Discussed with Dr. Cortés, will lower Amiodarone 200mg PO daily and monitor LFTs. Statin held and tylenol d/c * 08/29: patient is pending LTAC, he will eventually need cardiac catheterization when he has stabilized. Liver function tests improving. Statin is on hold * 08/30: Cardiology discontinued the Amiodarone Status: Acute (4) Acute on Chronic Systolic CHF exacerbation Assessment and Plan: * Cardiology (Dr. Cortés) on board-->help appreciated * Transferred to the ICU on 08/10 following cardiac arrest and intubation. * Echocardiogram (08/08/17): left ventricular systolic function is severely impaired. EF: 25-30%; global hypokinesis of left ventricle mild aortic regurgitation. Mitral regurgitation is moderate. Moderate-severe pulmonary hypertension * Medications: * Aspirin 81mg PO daily * Plavix d/c by cardiology * Lopressor 50mg PO bid * d/c Crestor 10mg POqHS on 08/27 secondary to rise in LFTs * ARB d/c secondary to acute renal failure Status: Acute (5) Constipation Assessment and Plan: No BM since 08/28/17 1 dose of Miraalax was given 08/30/17 but no bm 1 dose of Lactulose 20 gm on 08/31, no bm try Fleet Enema on 09/01/17. Status: Acute (6) Leukocytosis Assessment and Plan: * resolved, WBC: 8.8 on 08/31 * Procalcitonin elevated * Pleural Fluid 08/19/17 did not show any growth * Blood cultures (08/26): no growth After 48hours X2 * UA and urine culture (08/27): pending * Patient has elevated LFTs-->did not start anti-fungal in light of LFTs Status: Acute (7) Pneumonia Assessment and Plan: * Pulmonary (Dr. Mena) on board-->help appreciated; Dr. Jeffers covering while Dr. Mena away * Infectious Disease (Dr. Lawrence)-->help appreciated * Chest xray (08/26): right arm PICC is seen with the tip of distal subclavian vein. PICC may be used * Rapid A strep, Influenza A and B studies, Urine Legionella, Mycoplasma studies = Negative * Florastor 250mg PO bid * 08/07/17: +Strep Pneumoniae in the urine * Meropenem 500mg IV Q 8 hours (08/14/17 through 08/18/17) and Zosyn 2.25 mg IV Q6H (08/13/17 through 08/18/17) * Cefepime 1 gm IV Q24H: started on 08/19/17 and was discontinued by ID Dr. Dwyer on 08/30/17: monitor vitals and labs * s/p right posterior chest tube 08/19-08/24 * Sputum Culture 08/19/17 shows No growth * Pleural fluid 08/19/17: No growth Status: Acute (8) HTN (hypertension) Assessment and Plan: * Lopressor 50mg PO bid Status: Chronic (9) CKD (chronic kidney disease) on Dialysis Assessment and Plan: * Dr. Miranda (nephrology) consulted on the case * Hx of CKD-->Started on dialysis 08/15/17 * Kurtis catheter placed and removed 08/22 * s/p Right Chest Permcath 08/22 * Patient is on dialysis; oliguric * Phoslo 1334mg GT TID * Epoetin 10,000 unit IV MWF Status: Acute (10) Diabetes mellitus Assessment and Plan: * Accuchecks Q6H * HgbA1c 8.4 * Levemir 16 units subq12 * Start peg feedings on 08/26/17 * Nepro-->50 ml/hour (11) HLD (hyperlipidemia) Assessment and Plan: * 08/27: held Crestor 10 mg PO HS secondary to rise in LFTs * 08/29: Liver function tests improving; waiting to restart statin Status: Chronic (12) Anemia Assessment and Plan: * Heme-oncology (Dr. Giles bender) on board-->help appreciated * Likely iron deficiency anemia based on prior admissions * Ferritin 27.4, Iron 22, TIBC 322, % Saturation 7 * Ferric Sodium Gluconate 125mg IVPB daily (active 08/08-08/16) * Procrit 10,000 units M-W-F * Monitor Hgb/Hct: stable Status: Chronic (13) History of DVT (deep vein thrombosis) Assessment and Plan: * Patient was previously on Eliquis for a prior history of DVT. * Repeat dopplers 08/09/17 are negative for DVT * Off Heparin Drip 08/17/17 * Start Eliquis 2.5mg PO BID for atrial flutter and history of DVT Status: Chronic (14) UTI Assessment and Plan: * Infectious disease (Dr. Lawrence) on board-->help appreciated * Exchange jaquez out and repeat urine cultures * Urine Culture 08/12/17 showed Gram Negative Rods: NO identification and NO sensitivities were performed * Meropenem 500mg IV Q 12hours (active since 08/14/17 through 08/18/17) to cover for UTI per ID * Repeat Urine Culture 08/18/17 shows NO growth * 08/25: reculture in light of leukocytosis * 08/27: pending urine studies * 08/30: Urine Culture 08/27/17 showed Yeast Species but no antifungal secondary to recent history of Elevated LFTs Status: Chronic (15) Confusion; Alzheimer's Dementia Assessment and Plan: * Per daughter, patient has been getting bouts of confusion over the past year but appears at baseline. Patient has not seen formal neurology as outpatient per daughter. Per , prior to event, noted Alzheimers' disease dx one year ago * CT head w/o contrast (08/10/17):acute os subacute lacune infarct is not excluded in the left basal ganglia inferiorly with definitive chronic lacune identified in the right basal ganglia superiorly. No acute or subacute lobar brain infarction is appreciable by standard CT criteria. Mild age-related neuro degenerative changes are identifed. 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 No changes to dimensions at this time. Also, pt favoring Left side of head and has developed a 1x1 serous filled blister on his left ear. Primary nurse placed duoderm on the ear. Wound care nurse left duoderm in place , and recommends leaving it on until it falls off on its own. Pt has been NPO for several days, new peg inserted yesterday. Will be starting glucerna tube feedings later today. Albumin 3.3 * Turn q 2 hours * medihoney on unstageable ulcer * duoderm on left ear aurical ulcer Status: Acute (17) Elevated LFTs Assessment and Plan: * 08/27: increased * Discussed with cardiology-->changed amiodarone 200mg PO tid to amiodaron 200mg PO daily * D/C tylenol * Held Statin * patient is also on Rocephin to cover for pneumonia * Will not start antifungal * 08/29: starting to down trending since change in amiodarone dose; awaiting to restart statin * 08/30: continues to trend down. Amiodarone was discontinued Status: Acute (18) Prophylactic measure Assessment and Plan: * Pepcid 20mg PO daily * Start Eliquis 2.5mg PO BID * s/p peg placement 08/25 * s/p trachesostomy 08/22 * s/p Permcath placement 08/22 removal Kurtis catheter * s/p right posterior chest tube 08/19-->removed 08/24 * s/p Right Arm PICC 08/26 * (Jovita Serrano): -->number provided to the nurse- ->consented for peg placement; discussed about LTAC 08/26 * Dr Mariangel Lazar spoke with Dr. Pickard, PMD regarding patient's hospitalization up until this point 08/26 Still awaiting LTAC placement.
[2017-09-01] MEDS: (Novolog) Insulin Aspart, Recombinant 100 u/ml 10 ml vial SC SCH ×4 (00:09→18:00)
[2017-09-01] MEDS: Albuterol-Ipratrop 3 mg / 0.5 (3 ml) UD INH SCH ×4 (01:10→19:38)
[2017-09-01 06:37] LABS: BASO # 0.1 K/uL (0.0-0.2); BASO % 0.6 % (0.0-2.0); EOS # 0.3 K/uL (0.0-0.7); HEMATOCRIT 29.7 % (35.0-51.0); LYMPH # 1.5 K/uL (1.0-4.3); LYMPH % 8.9 % (20.0-40.0); MEAN CELL VOLUME 76.4 fL (80.0-94.0); MEAN CORPUSCULAR HEMOGLOBIN 23.5 pg (27.0-31.0); MEAN CORPUSCULAR HGB CONC 30.7 g/dL (33.0-37.0); MEAN PLATELET VOLUME 8.1 fL (7.2-11.7); MONO # 1.4 K/uL (0.0-0.8); MONO % 7.9 % (0.0-10.0); PLATELET COUNT 445 K/uL (130-400); RED CELL DISTRIBUTION WIDTH 23.4 % (11.5-14.5); WHITE BLOOD COUNT 17.4 K/uL (4.8-10.8)
[2017-09-01 06:47] LABS: POTASSIUM 4.7 mmol/L (3.6-5.2)
[2017-09-01 06:49] LABS: BILIRUBIN,TOTAL 0.6 mg/dL (0.2-1.3); TOTAL PROTEIN 7.8 g/dL (6.3-8.3)
[2017-09-01 06:50] LABS: CALCIUM 9.1 mg/dl (8.6-10.4)
[2017-09-01 07:05] LABS: ALB/GLOB RATIO 0.7 (1.0-2.1)
[2017-09-01 08:37] LABS: BASOPHIL 1 % (0-2); EOSINOPHIL 1 % (0-4); NEUTROPHIL 80 % (50-75); TOTAL CELLS COUNTED 100
--- NOTE | 2017-09-01 08:53 | CP.PCM.PN ---
Subjective - Date & Time of Evaluation Date of Evaluation: 09/01/17 Time of Evaluation: 08:45 - Subjective Subjective: Hospitalist Progress Note Patient was seen and examined at 8:45 AM 09/01/17 ICU Bed #5. 77 year old male with extensive medical history (please see Assessment and Plans below) was admitted on 08/06/17 for evaluation of SOB and Chest Pain. He was planned for Cardiac Catheterization on 08/09/17. Patient then had Acute Respiratory Failure and had to be intubated and placed on vent. He is S/P Tracheostomy 08/22/17 and PEG Tube Placement 08/25/17. Please see details below. ROS are not possible as although patient is awake he is not answering (shaking his head yes or no) Exam: - Head Exam Head Exam: NORMAL INSPECTION - Eye Exam Eye Exam: could not evaluate EOM due to patient's current status Pupil Exam: round, equal, and reactive to light - Respiratory Exam Respiratory Exam: Decreased Breath Sounds bilateral lower lung buchanan but limited due to lack of patient participation Additional comments: Trach Collar - Cardiovascular Exam Cardiovascular Exam: REGULAR RHYTHM, +S1, +S2 - GI/Abdominal Exam GI & Abdominal Exam: Distended, Soft, Normal Bowel Sounds, could not palpate liver and spleen, PEG Tube Insertion Site LUQ without evidence of cellutlitis. absent: Firm, Guarding, Rigid, Tenderness, Rebound Additional comments: obese habitus - Extremities Exam Extremities Exam: Normal Capillary Refill, Pedal Edema. absent: Tenderness Additional comments: Prevalon boots b/l - Neurological Exam Additional comments: Could not be performed due to lack of patient participation - Skin Skin Exam: Unstageable Sacral Ulcer. Shallow Ulcer Left outer ear Assessment and Plan - Assessment and Plan (Free Text) Assessment: (1) Acute Respiratory Failure ARDS Cardiac Arrest Pulmonary Edema Nonstemi Assessment and Plan: * Code Blue on 08/10: asystole, cardiopulmonary resuscitative measures initiated , requiring 3 epis, bicarbonate, ROSC achieved and intubated and brought to the ICU for further management; Patient in the ICU from 08/10 until present. * Pulmonary: Dr Mena (Dr. Jeffers covering until 09/04/17)-->help appreciated * Cardiology: Dr. Cortés on board-->help appreciated * GI (Dr. Wills) on board-->help appreciated * S/P Tracheostomy 08/22 * S/P Peg tube placement 08/25 * s/p insertion of right posterior chest tube 08/19-->removed 08/24/17 * There was consideration for possible thoracentesis of left side pleural effusion, evaluated by IR, there is no fluid to drain per Dr. Gross * Chest xray (08/26): right arm PICC is seen with the tip of distal subclavian vein. PICC may be used * Per cardiology, * Restart Aspirin 81mg PO daily * Patient does not need Plavix at this time * Recommend for Eliquis 2.5mg PO BID for atrial flutter * 08/27: patient is pending LTAC, he went eventually need cardiac catheterization when he has stabilized. Held statin secondary to elevated LFTs. Discussed with Dr. Cortés, lowered Amiodarone 200mg PO daily * 08/28: patient is pending LTAC, he went eventually need cardiac catheterization when he has stabilized. Liver function tests improving * 08/29: Electrical Helper Nehal has sent request to insurance for authorization for LTAC (2) Abnormal Stress Test History of AICD History of Coronary Artery Disease Assessment and Plan: * Cardiology (Dr. Cortés) on board-->help appreciated * TSH: 1.16; T4: 1.53 * Echocardiogram (08/08/17): left ventricle systolic function is severely impaired. EF: 25-30%; global hypokinesis of left ventricle mild aortic regurgitation. Mitral regurgitation is moderate. Moderate-severe pulmonary hypertension * Plan was for cardiac catheterization; delayed due to acute renal failure; Attempted gentle hydration and mucomyst on 08/09 to optimize prior to cath * On 08/10, patient was in asystole, ACLS protocol, ROSC achieved, intubated and transfered to the ICU. Patient in acute pulmonary edema. * Patient hospitalized in the ICU since 08/10/17 to present. * Medications: * Aspirin 81mg PO daily * Plavix d/c by cardiology * Lopressor 50mg PO bid * d/c Crestor 10mg POqHS secondary to rise in LFTS 08/27--->monitor LFTs daily * ARB d/c secondary to acute renal failure * 08/27: patient is pending LTAC, he went eventually need cardiac catheterization when he has stabilized. Held statin secondary to elevated LFTs. Discussed with Dr. Cortés, lowered Amiodarone 200mg PO daily * 08/28: patient is pending LTAC. He will eventually need cardiac catheterrization when he has stabilized. Liver function tests improving. Statin is on hold (3) Atrial flutter Assessment and Plan: * Cardiology (Dr. Cortés) on board-->help appreciated * Refractory to Lopressor/Cardizem IVP * Eliquis 2.5mg PO bid * Amiodarone bolus-->Amiodarine drip on 08/24-->converted to Amiodarone 200mg PO TID on 08/26 and this was decreased to 200 mg 1x/day due to increased LFTs * 08/27: Discussed with Dr. Cortés, will lower Amiodarone 200mg PO daily and monitor LFTs. Statin held and tylenol d/c * 08/29: patient is pending LTAC, he will eventually need cardiac catheterization when he has stabilized. Liver function tests improving. Statin is on hold * 08/30: Cardiology discontinued the Amiodarone Status: Acute (4) Acute on Chronic Systolic CHF exacerbation Assessment and Plan: * Cardiology (Dr. Cortés) on board-->help appreciated * Transferred to the ICU on 08/10 following cardiac arrest and intubation. * Echocardiogram (08/08/17): left ventricular systolic function is severely impaired. EF: 25-30%; global hypokinesis of left ventricle mild aortic regurgitation. Mitral regurgitation is moderate. Moderate-severe pulmonary hypertension * Medications: * Aspirin 81mg PO daily * Plavix d/c by cardiology * Lopressor 50mg PO bid * d/c Crestor 10mg POqHS on 08/27 secondary to rise in LFTs * ARB d/c secondary to acute renal failure Status: Acute (5) Leukocytosis Assessment and Plan: * Patient's white count rising * Procalcitonin elevated * Pleural Fluid 08/19/17 did not show any growth * Blood cultures (08/26): no growth After 48hours X2 * UA and urine culture (08/27): Urine Culture showed Yeast Species * Patient has elevated LFTs-->did not start anti-fungal in light of LFTs Status: Acute (6) Pneumonia Assessment and Plan: * Pulmonary (Dr. Mena) on board-->help appreciated; Dr. Jeffers covering while Dr. Mena away * Infectious Disease (Dr. Lawrence)-->help appreciated * Chest xray (08/26): right arm PICC is seen with the tip of distal subclavian vein. PICC may be used * Rapid A strep, Influenza A and B studies, Urine Legionella, Mycoplasma studies = Negative * Florastor 250mg PO bid * 08/07/17: +Strep Pneumoniae in the urine * Meropenem 500mg IV Q 8 hours (08/14/17 through 08/18/17) and Zosyn 2.25 mg IV Q6H (08/13/17 through 08/18/17) * Cefepime 1 gm IV Q24H: started on 08/19/17 and was discontinued by ID Dr. Dwyer on 08/30/17: monitor vitals and labs * s/p right posterior chest tube 08/19-08/24 * Sputum Culture 08/19/17 shows No growth * Pleural fluid 08/19/17: No growth Status: Acute (7) HTN (hypertension) Assessment and Plan: * Lopressor 50mg PO bid Status: Chronic (8) CKD (chronic kidney disease) on Dialysis Assessment and Plan: * Dr. Miranda (nephrology) consulted on the case * Hx of CKD-->Started on dialysis 08/15/17 * Kurtis catheter placed and removed 08/22 * s/p Right Chest Permcath 08/22 * Patient is on dialysis; oliguric * Phoslo 1334mg GT TID * Epoetin 10,000 unit IV MWF Status: Acute (9) Diabetes mellitus Assessment and Plan: * Accuchecks Q6H * HgbA1c 8.4 * As patient required a total of 34 units on Aspart Insulin Sliding Scale from 4 AM 08/31/17 through 4 AM 09/01/17, Levemir as been increased to 36 units SC Q12H starting 09/01/17. * Start peg feedings on 08/26/17 * Nepro-->50 ml/hour (10) HLD (hyperlipidemia) Assessment and Plan: * 08/27: held Crestor 10 mg PO HS secondary to rise in LFTs * 08/29: Liver function tests improving; waiting to restart statin Status: Chronic (11) Anemia Assessment and Plan: * Heme-oncology (Dr. Giles bender) on board-->help appreciated * Likely iron deficiency anemia based on prior admissions * Ferritin 27.4, Iron 22, TIBC 322, % Saturation 7 * Ferric Sodium Gluconate 125mg IVPB daily (active 08/08-08/16) * Procrit 10,000 units M-W- * Monitor Hgb/Hct: stable Status: Chronic (12) History of DVT (deep vein thrombosis) Assessment and Plan: * Patient was previously on Eliquis for a prior history of DVT. * Repeat dopplers 08/09/17 are negative for DVT * Off Heparin Drip 08/17/17 * Started Eliquis 2.5mg PO BID for atrial flutter and history of DVT Status: Chronic (13) UTI Assessment and Plan: * Infectious disease (Dr. Lawrence) on board-->help appreciated * Exchange jaquez out and repeat urine cultures * Urine Culture 08/12/17 showed Gram Negative Rods: NO identification and NO sensitivities were performed * Meropenem 500mg IV Q 12hours (active since 08/14/17 through 08/18/17) to cover for UTI per ID * Repeat Urine Culture 08/18/17 shows NO growth * 08/25: reculture in light of leukocytosis * 08/27: pending urine studies * 08/30: Urine Culture 08/27/17 showed Yeast Species but no antifungal secondary to recent history of Elevated LFTs Status: Chronic (14) Confusion; Alzheimer's Dementia Assessment and Plan: * Per daughter, patient has been getting bouts of confusion over the past year but appears at baseline. Patient has not seen formal neurology as outpatient per daughter. Per , prior to event, noted Alzheimers' disease dx one year ago * CT head w/o contrast (08/10/17):acute os subacute lacune infarct is not excluded in the left basal ganglia inferiorly with definitive chronic lacune identified in the right basal ganglia superiorly. No acute or subacute lobar brain infarction is appreciable by standard CT criteria. Mild age-related neuro degenerative changes are identifed. 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 No changes to dimensions at this time. Also, pt favoring Left side of head and has developed a 1x1 serous filled blister on his left ear. Primary nurse placed duoderm on the ear. Wound care nurse left duoderm in place , and recommends leaving it on until it falls off on its own. Pt has been NPO for several days, new peg inserted yesterday. Will be starting glucerna tube feedings later today. Albumin 3.3 * Turn q 2 hours * medihoney on unstageable ulcer * duoderm on left ear aurical ulcer Status: Acute (16) Elevated LFTs Assessment and Plan: * 08/27: Yina * Discussed with cardiology-->changed amiodarone 200mg PO tid to amiodaron 200mg PO daily * D/C tylenol * Held Statin * patient is also on Rocephin to cover for pneumonia * Will not start antifungal * 08/29: starting to down trending since change in amiodarone dose; awaiting to restart statin * 08/30: continues to trend down. Amiodarone was discontinued * 09/01: AST, ALT, Alk Phos still elevated but stable Status: Acute (17). Constipation NO bowel movement since 08/28/17 Miraalax given 08/30/17 and Lactulose 20 gm given 08/31/17 but still NO bowel movement as of 09/01/17 morning Fleet Enema ordered 09/01/17 (18). Prophylactic measure Assessment and Plan: * Pepcid 20mg PO daily * Start Eliquis 2.5mg PO BID * s/p peg placement 08/25 * s/p trachesostomy 08/22 * s/p Permcath placement 08/22 removal Kurtis catheter * s/p right posterior chest tube 08/19-->removed 08/24 * s/p Right Arm PICC 08/26 * (Jovita Serrano): -->number provided to the nurse- ->consented for peg placement; discussed about LTAC 08/26 * Dr Mariangel Lazar spoke with Dr. Pickard, MARIAJOSE regarding patient's hospitalization up until this point 08/26 I spoke with Cryptologic Support Specialist Demetria and we are still awaiting insurance authorization for LTAC placement. uCllen Barth D.O. Objective - Vital Signs/Intake and Output Vital Signs (last 24 hours): Temp Pulse Resp BP Pulse Ox 98.2 F 99 H 16 122/54 L 98 09/01/17 08:00 09/01/17 08:00 09/01/17 08:00 09/01/17 07:15 09/01/17 08:00 Intake and Output: 09/01/17 09/01/17 06:59 18:59 Intake Total 200 100 Balance 200 100 - Medications Medications: Current Medications Albuterol/Ipratropium (Duoneb 3 Mg/0.5 Mg (3 Ml) Ud) 3 ml INH RQ6 [facility] Last Admin: 09/01/17 07:45 Dose: 3 ml Apixaban (Eliquis) 2.5 mg PO BID [facility] Last Admin: 08/31/17 17:57 Dose: 2.5 mg Aspirin (Aspirin Chewable) 81 mg PO DAILY [facility] Last Admin: 08/31/17 13:53 Dose: 81 mg Calcium Acetate (Phoslo) 2,001 mg GT TIDCC [facility] Last Admin: 08/31/17 17:57 Dose: 2,001 mg Epoetin Chencho (Procrit) 10,000 unit IV MWF [facility] Last Admin: 08/31/17 10:51 Dose: 10,000 unit Famotidine (Pepcid) 20 mg PO DAILY [facility] Last Admin: 08/31/17 13:53 Dose: 20 mg Insulin Aspart (Novolog) 0 unit SC Q6 [facility] PRN Reason: Protocol Last Admin: 09/01/17 06:26 Dose: 3 unit Insulin Detemir (Levemir) 28 unit SC Q12 [facility] Last Admin: 08/31/17 22:05 Dose: 28 unit Lactobacillus Acidophilus (Bacid Acidophilus) 1 cap PO BID [facility] Last Admin: 08/31/17 17:57 Dose: 1 cap Lisinopril (Zestril) 5 mg PO DAILY [facility] Last Admin: 08/31/17 13:54 Dose: 5 mg Lorazepam (Ativan) 1 mg IVP Q2H PRN PRN Reason: Anxiety Last Admin: 08/26/17 11:10 Dose: 1 mg Metoprolol Tartrate (Lopressor) 50 mg PO BID [facility] Last Admin: 08/31/17 17:57 Dose: 50 mg Rosuvastatin Calcium (Crestor) 10 mg PO [facility] Last Admin: 08/26/17 22:41 Dose: 10 mg - Labs Labs: 09/01/17 06:33 09/01/17 06:28 PT 13.9 SECONDS (9.7-12.2) H 08/24/17 06:08 INR 1.2 08/24/17 06:08 APTT 55 SECONDS (21-34) H D 08/17/17 06:12
[2017-09-01] MEDS: Insulin Detemir 100 units/ml Vial (Levemir) SC SCH ×2 (09:28→21:43)
[2017-09-01] MEDS: Lactobacillus Acidophilus 500 MU Cap PO SCH ×2 (09:28→17:48)
--- NOTE | 2017-09-01 09:37 | CP.PCM.PN ---
Subjective - Date & Time of Evaluation Date of Evaluation: 09/01/17 Time of Evaluation: 09:34 - Subjective Subjective: s/p dialysis 08/31- UF 1000ml- cannot tolerate excess fluid removal on trach collar, confused as before on intermittent PEG feeds no other changes Objective - Vital Signs/Intake and Output Vital Signs (last 24 hours): Temp Pulse Resp BP Pulse Ox 98.2 F 99 H 16 122/54 L 98 09/01/17 08:00 09/01/17 08:00 09/01/17 08:00 09/01/17 07:15 09/01/17 08:00 Intake and Output: 09/01/17 09/01/17 06:59 18:59 Intake Total 200 100 Balance 200 100 - Medications Medications: Current Medications Albuterol/Ipratropium (Duoneb 3 Mg/0.5 Mg (3 Ml) Ud) 3 ml INH RQ6 [facility] Last Admin: 09/01/17 07:45 Dose: 3 ml Apixaban (Eliquis) 2.5 mg PO BID [facility] Last Admin: 09/01/17 09:28 Dose: 2.5 mg Aspirin (Aspirin Chewable) 81 mg PO DAILY [facility] Last Admin: 09/01/17 09:27 Dose: 81 mg Calcium Acetate (Phoslo) 2,001 mg GT TIDCC [facility] Last Admin: 09/01/17 08:30 Dose: 2,001 mg Epoetin Chencho (Procrit) 10,000 unit IV MWF [facility] Last Admin: 08/31/17 10:51 Dose: 10,000 unit Famotidine (Pepcid) 20 mg PO DAILY [facility] Last Admin: 09/01/17 09:28 Dose: 20 mg Insulin Aspart (Novolog) 0 unit SC Q6 [facility] PRN Reason: Protocol Last Admin: 09/01/17 06:26 Dose: 3 unit Insulin Detemir (Levemir) 36 unit SC Q12 [facility] Lactobacillus Acidophilus (Bacid Acidophilus) 1 cap PO BID [facility] Last Admin: 09/01/17 09:28 Dose: 1 cap Lisinopril (Zestril) 5 mg PO DAILY [facility] Last Admin: 09/01/17 09:28 Dose: 5 mg Lorazepam (Ativan) 1 mg IVP Q2H PRN PRN Reason: Anxiety Last Admin: 08/26/17 11:10 Dose: 1 mg Metoprolol Tartrate (Lopressor) 50 mg PO BID [facility] Last Admin: 09/01/17 09:27 Dose: 50 mg Rosuvastatin Calcium (Crestor) 10 mg PO [facility] Last Admin: 08/26/17 22:41 Dose: 10 mg - Labs Labs: 09/01/17 06:33 09/01/17 06:28 PT 13.9 SECONDS (9.7-12.2) H 08/24/17 06:08 INR 1.2 08/24/17 06:08 APTT 55 SECONDS (21-34) H D 08/17/17 06:12 - Constitutional Appears: Confused, Chronically Ill - Head Exam Head Exam: ATRAUMATIC, NORMAL INSPECTION - Eye Exam Eye Exam: EOMI, Normal appearance - Neck Exam Neck Exam: Normal Inspection. absent: Tenderness - Respiratory Exam Respiratory Exam: Clear to Ausculation Bilateral, NORMAL BREATHING PATTERN - Cardiovascular Exam Cardiovascular Exam: REGULAR RHYTHM, +S1 - GI/Abdominal Exam GI & Abdominal Exam: Soft. absent: Tenderness - Extremities Exam Extremities Exam: Normal Inspection. 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
--- NOTE | 2017-09-01 15:44 | CARD ---
APPROVED REPORT EKG Measurement Heart [id number] <Conclusion> Atrial flutter with variable AV block Left anterior fascicular block Left ventricular hypertrophy with repolarization abnormality Abnormal ECG
--- NOTE | 2017-09-01 18:07 | CP.PCM.PN ---
Subjective - Date & Time of Evaluation Date of Evaluation: 09/01/17 Time of Evaluation: 18:00 - Subjective Subjective: Patient seen and evaluated Comfortable denies chest pain and dyspnea For LTAC transfer today Physical Examination - Head Exam Head Exam: NORMAL INSPECTION - Eye Exam Eye Exam: PERRL - ENT Exam ENT Exam: Mucous Membranes Moist Additional comments: trach collar in place with minimal secretions noted - Neck Exam Neck Exam: Full ROM - Respiratory Exam Respiratory Exam: NORMAL BREATHING PATTERN - Cardiovascular Exam Cardiovascular Exam: +S1, +S2. absent: JVD, Murmur - GI/Abdominal Exam GI & Abdominal Exam: Soft, Normal Bowel Sounds Additional comments: central obesity - Extremities Exam Extremities Exam: Full ROM. absent: Pedal Edema - Neurological Exam Neurological Exam: Awake. absent: Alert, Oriented x3 - Psychiatric Exam Psychiatric exam: Flat Affect - Skin Skin Exam: Dry, Normal Color, Warm Objective - Vital Signs/Intake and Output Vital Signs (last 24 hours): Temp Pulse Resp BP Pulse Ox 98.8 F 82 26 H 103/41 L 96 09/01/17 16:00 09/01/17 17:14 09/01/17 17:14 09/01/17 17:14 09/01/17 17:14 Intake and Output: 09/01/17 09/01/17 06:59 18:59 Intake Total 200 550 Balance 200 550 - Medications Medications: Current Medications Albuterol/Ipratropium (Duoneb 3 Mg/0.5 Mg (3 Ml) Ud) 3 ml INH RQ6 [facility] Last Admin: 09/01/17 13:02 Dose: 3 ml Apixaban (Eliquis) 2.5 mg PO BID [facility] Last Admin: 09/01/17 17:48 Dose: 2.5 mg Aspirin (Aspirin Chewable) 81 mg PO DAILY [facility] Last Admin: 09/01/17 09:27 Dose: 81 mg Calcium Acetate (Phoslo) 2,001 mg GT TIDCC [facility] Last Admin: 09/01/17 17:48 Dose: 2,001 mg Famotidine (Pepcid) 20 mg PO DAILY [facility] Last Admin: 09/01/17 09:28 Dose: 20 mg Insulin Aspart (Novolog) 0 unit SC Q6 [facility] PRN Reason: Protocol Last Admin: 09/01/17 18:00 Dose: 4 unit Insulin Detemir (Levemir) 36 unit SC Q12 [facility] Last Admin: 09/01/17 09:28 Dose: 36 unit Lactobacillus Acidophilus (Bacid Acidophilus) 1 cap PO BID [facility] Last Admin: 09/01/17 17:48 Dose: 1 cap Lisinopril (Zestril) 5 mg PO DAILY [facility] Last Admin: 09/01/17 09:28 Dose: 5 mg Lorazepam (Ativan) 1 mg IVP Q2H PRN PRN Reason: Anxiety Last Admin: 08/26/17 11:10 Dose: 1 mg Metoprolol Tartrate (Lopressor) 50 mg PO BID [facility] Last Admin: 09/01/17 17:48 Dose: 50 mg Rosuvastatin Calcium (Crestor) 10 mg PO HS [facility] Last Admin: 08/26/17 22:41 Dose: 10 mg - Labs Labs: 09/01/17 06:33 09/01/17 06:28 PT 13.9 SECONDS (9.7-12.2) H 08/24/17 06:08 INR 1.2 08/24/17 06:08 APTT 55 SECONDS (21-34) H D 08/17/17 06:12 Assessment and Plan - Assessment and Plan (Free Text) Assessment: Paraxysmal A Fib Intermittent Eliquis 2.5 mg PO BID CAD, chest pain -No current plans for cardiac cath (acute respiratory failure and elevated Cr) , history of abnormal stress test -Elevated Troponin likely due to chest compressions during cardiac arrest 08/10 -No acute ST changes on EKG -Continue ASA, Crestor, Metoprolol. Plavix discontinued. -Echocardiogram from 08/08/17 showed left ventricle systolic function is severely impaired. EF: 25-30%; global hypokinesis of LV mild AR. MR is moderate. Moderate-severe pulmonary hypertension Systolic CHF exacerbation -BNP [id number] on 08/06/17 -Continue ASA, Crestor, Metoprolol -Echocardiogram from 08/08/17 showed left ventricle systolic function is severely impaired. EF: 25-30%; global hypokinesis of LV mild AR. MR is moderate. Moderate-severe pulmonary hypertesnion Diabetes Mellitus ISS Continue to monitor ESRD on HD On Procrit and Phoslo Nephro on the case Prophylaxis Pepcid 20 mg PO daily Eliquis 2.5 mg PO BID (Renal precautions) Disposition Awaiting Transfer to LTAC
--- NOTE | 2017-09-01 22:23 | CP.PCM.PN ---
Subjective - Date & Time of Evaluation Date of Evaluation: 09/01/17 Time of Evaluation: 03:15 - Subjective Subjective: dictated Objective - Vital Signs/Intake and Output Vital Signs (last 24 hours): Temp Pulse Resp BP Pulse Ox 98.2 F 87 21 105/46 L 95 09/01/17 20:00 09/01/17 20:17 09/01/17 20:17 09/01/17 20:17 09/01/17 20:17 Intake and Output: 09/01/17 09/02/17 18:59 06:59 Intake Total 600 100 Balance 600 100 - Medications Medications: Current Medications Albuterol/Ipratropium (Duoneb 3 Mg/0.5 Mg (3 Ml) Ud) 3 ml INH RQ6 [facility] Last Admin: 09/01/17 19:38 Dose: 3 ml Apixaban (Eliquis) 2.5 mg PO BID [facility] Last Admin: 09/01/17 17:48 Dose: 2.5 mg Aspirin (Aspirin Chewable) 81 mg PO DAILY [facility] Last Admin: 09/01/17 09:27 Dose: 81 mg Calcium Acetate (Phoslo) 2,001 mg GT TIDCC [facility] Last Admin: 09/01/17 17:48 Dose: 2,001 mg Famotidine (Pepcid) 20 mg PO DAILY [facility] Last Admin: 09/01/17 09:28 Dose: 20 mg Insulin Aspart (Novolog) 0 unit SC Q6 [facility] PRN Reason: Protocol Last Admin: 09/01/17 18:00 Dose: 4 unit Insulin Detemir (Levemir) 36 unit SC Q12 [facility] Last Admin: 09/01/17 21:43 Dose: 36 unit Lactobacillus Acidophilus (Bacid Acidophilus) 1 cap PO BID [facility] Last Admin: 09/01/17 17:48 Dose: 1 cap Lisinopril (Zestril) 5 mg PO DAILY [facility] Last Admin: 09/01/17 09:28 Dose: 5 mg Lorazepam (Ativan) 1 mg IVP Q2H PRN PRN Reason: Anxiety Last Admin: 08/26/17 11:10 Dose: 1 mg Metoprolol Tartrate (Lopressor) 50 mg PO BID [facility] Last Admin: 09/01/17 17:48 Dose: 50 mg Rosuvastatin Calcium (Crestor) 10 mg PO HS [facility] Last Admin: 08/26/17 22:41 Dose: 10 mg - Labs Labs: 09/01/17 06:33 09/01/17 06:28 PT 13.9 SECONDS (9.7-12.2) H 08/24/17 06:08 INR 1.2 08/24/17 06:08 APTT 55 SECONDS (21-34) H D 08/17/17 06:12
[2017-09-02] MEDS: (Novolog) Insulin Aspart, Recombinant 100 u/ml 10 ml vial SC SCH ×4 (00:07→17:58)
[2017-09-02] MEDS: Albuterol-Ipratrop 3 mg / 0.5 (3 ml) UD INH SCH ×4 (01:09→19:51)
--- NOTE | 2017-09-02 03:00 | PN ---
DATE: SUBJECTIVE: The patient was seen today. He still is in ICU. He is opening his eyes, but still remains unclear whether he is fully there or not. Eyes are open. Neck is supple. He remains afebrile. Lungs are clear. He still has a PICC line in the right arm and there is a hemodialysis catheter. He did get some fleet enema, I was told. PHYSICAL EXAMINATION: LUNGS: Clear. Decreased breath sounds bilaterally on both bases. HEART: S1 and S2 is regular. ABDOMEN: Remains prominent. EXTREMITIES: Have mild edema present. LABORATORY DATA: Labs are noted. Lab show white count is 17, is creeping up again. He still remains on dialysis. His creatinine is 4.9 and sodium is 131. Liver enzymes remain elevated with AST at 92, ALT at 78, alkaline phosphatase 168. PLAN: He is off IV antibiotics. Urine still showed some yeast on 08/27/2017 but if his white count increases further, I would suggest to re-culture him and dialysis for a blood and also urine culture as well as stool for C. diff, but right now, I would just repeat the labs. We will follow the labs in the morning. Allan Lawrence MD
[2017-09-02 06:26] LABS: BASO # 0.1 K/uL (0.0-0.2); BASO % 0.6 % (0.0-2.0); EOS # 0.5 K/uL (0.0-0.7); HEMATOCRIT 29.8 % (35.0-51.0); LYMPH # 1.5 K/uL (1.0-4.3); MEAN CORPUSCULAR HEMOGLOBIN 24.1 pg (27.0-31.0); MEAN CORPUSCULAR HGB CONC 32.1 g/dL (33.0-37.0); MEAN PLATELET VOLUME 8.6 fL (7.2-11.7); MONO # 1.1 K/uL (0.0-0.8); MONO % 6.9 % (0.0-10.0); NRBC % 0.1 % (0.0-2.0); RED CELL DISTRIBUTION WIDTH 23.1 % (11.5-14.5); WHITE BLOOD COUNT 15.4 K/uL (4.8-10.8)
[2017-09-02 06:40] LABS: POTASSIUM 5.1 mmol/L (3.6-5.2)
[2017-09-02 06:42] LABS: BILIRUBIN,TOTAL 0.7 mg/dL (0.2-1.3)
[2017-09-02 06:43] LABS: ALB/GLOB RATIO 0.6 (1.0-2.1); TOTAL PROTEIN 7.8 g/dL (6.3-8.3)
[2017-09-02 06:44] LABS: CALCIUM 9.9 mg/dl (8.6-10.4)
[2017-09-02] MEDS: Lactobacillus Acidophilus 500 MU Cap PO SCH ×2 (10:00→17:20)
--- NOTE | 2017-09-02 10:07 | CP.PCM.PN ---
Subjective - Date & Time of Evaluation Date of Evaluation: 09/02/17 Time of Evaluation: 09:40 - Subjective Subjective: Hospitalist Progress Note Patient was seen and examined at 9:40 AM 09/02/17 ICU Bed #5. 77 year old male with extensive medical history (please see Assessment and Plans below) was admitted on 08/06/17 for evaluation of SOB and Chest Pain. He was planned for Cardiac Catheterization on 08/09/17. Patient then had Acute Respiratory Failure and had to be intubated and placed on vent. He is S/P Tracheostomy 08/22/17 and PEG Tube Placement 08/25/17. Please see details below. ROS are not possible as although patient is awake he is not answering (shaking his head yes or no) Exam: - Head Exam Head Exam: NORMAL INSPECTION - Eye Exam Eye Exam: could not evaluate EOM due to patient's current status Pupil Exam: round, equal, and reactive to light - Respiratory Exam Respiratory Exam: Decreased Breath Sounds bilateral lower lung buchanan but limited due to lack of patient participation Additional comments: Trach Collar - Cardiovascular Exam Cardiovascular Exam: REGULAR RHYTHM, +S1, +S2 - GI/Abdominal Exam GI & Abdominal Exam: Distended, Soft, Normal Bowel Sounds, could not palpate liver and spleen, PEG Tube Insertion Site LUQ without evidence of cellutlitis. absent: Firm, Guarding, Rigid, Tenderness, Rebound Additional comments: obese habitus - Extremities Exam Extremities Exam: Normal Capillary Refill, Pedal Edema. absent: Tenderness Additional comments: Prevalon boots b/l - Neurological Exam Additional comments: Could not be performed due to lack of patient participation - Skin Skin Exam: Unstageable Sacral Ulcer with NO surrounding signs of cellulitis. Shallow Ulcer Left outer ear Assessment and Plan - Assessment and Plan (Free Text) Assessment: (1) Acute Respiratory Failure ARDS Cardiac Arrest Pulmonary Edema Nonstemi Assessment and Plan: * Code Blue on 08/10: asystole, cardiopulmonary resuscitative measures initiated , requiring 3 epis, bicarbonate, ROSC achieved and intubated and brought to the ICU for further management; Patient in the ICU from 08/10 until present. * Pulmonary: Dr Mena (Dr. Jeffers covering until 09/04/17)-->help appreciated * Cardiology: Dr. Cortés on board-->help appreciated * GI (Dr. Wills) on board-->help appreciated * S/P Tracheostomy 08/22 * S/P Peg tube placement 08/25 * s/p insertion of right posterior chest tube 08/19-->removed 08/24/17 * There was consideration for possible thoracentesis of left side pleural effusion, evaluated by IR, there is no fluid to drain per Dr. Gross * Chest xray (08/26): right arm PICC is seen with the tip of distal subclavian vein. PICC may be used * Per cardiology, * Restart Aspirin 81mg PO daily * Patient does not need Plavix at this time * Recommend for Eliquis 2.5mg PO BID for atrial flutter * 08/27: patient is pending LTAC, he went eventually need cardiac catheterization when he has stabilized. Held statin secondary to elevated LFTs. Discussed with Dr. Cortés, lowered Amiodarone 200mg PO daily * 08/28: patient is pending LTAC, he went eventually need cardiac catheterization when he has stabilized. Liver function tests improving * 08/29: [place] [employer] has sent request to insurance for authorization for LTAC (2) Abnormal Stress Test History of AICD History of Coronary Artery Disease Assessment and Plan: * Cardiology (Dr. Cortés) on board-->help appreciated * TSH: 1.16; T4: 1.53 * Echocardiogram (08/08/17): left ventricle systolic function is severely impaired. EF: 25-30%; global hypokinesis of left ventricle mild aortic regurgitation. Mitral regurgitation is moderate. Moderate-severe pulmonary hypertension * Plan was for cardiac catheterization; delayed due to acute renal failure; Attempted gentle hydration and mucomyst on 08/09 to optimize prior to cath * On 08/10, patient was in asystole, ACLS protocol, ROSC achieved, intubated and transfered to the ICU. Patient in acute pulmonary edema. * Patient hospitalized in the ICU since 08/10/17 to present. * Medications: * Aspirin 81mg PO daily * Plavix d/c by cardiology * Lopressor 50mg PO bid * d/c Crestor 10mg POqHS secondary to rise in LFTS 08/27--->monitor LFTs daily * ARB d/c secondary to acute renal failure * 08/27: patient is pending LTAC, he went eventually need cardiac catheterization when he has stabilized. Held statin secondary to elevated LFTs. Discussed with Dr. Cortés, lowered Amiodarone 200mg PO daily * 08/28: patient is pending LTAC. He will eventually need cardiac catheterrization when he has stabilized. Liver function tests improving. Statin is on hold (3) Atrial flutter Assessment and Plan: * Cardiology (Dr. Cortés) on board-->help appreciated * Refractory to Lopressor/Cardizem IVP * Eliquis 2.5mg PO bid * Amiodarone bolus-->Amiodarine drip on 08/24-->converted to Amiodarone 200mg PO TID on 08/26 and this was decreased to 200 mg 1x/day due to increased LFTs * 08/27: Discussed with Dr. Cortés, will lower Amiodarone 200mg PO daily and monitor LFTs. Statin held and tylenol d/c * 08/29: patient is pending LTAC, he will eventually need cardiac catheterization when he has stabilized. Liver function tests improving. Statin is on hold * 08/30: Cardiology discontinued the Amiodarone Status: Acute (4) Acute on Chronic Systolic CHF exacerbation Assessment and Plan: * Cardiology (Dr. Cortés) on board-->help appreciated * Transferred to the ICU on 08/10 following cardiac arrest and intubation. * Echocardiogram (08/08/17): left ventricular systolic function is severely impaired. EF: 25-30%; global hypokinesis of left ventricle mild aortic regurgitation. Mitral regurgitation is moderate. Moderate-severe pulmonary hypertension * Medications: * Aspirin 81mg PO daily * Plavix d/c by cardiology * Lopressor 50mg PO bid * d/c Crestor 10mg POqHS on 08/27 secondary to rise in LFTs * ARB d/c secondary to acute renal failure Status: Acute (5) Leukocytosis Assessment and Plan: * Patient's white count rising * Procalcitonin elevated * Pleural Fluid 08/19/17 did not show any growth * Blood cultures (08/26): no growth After 48hours X2 * UA and urine culture (08/27): Urine Culture showed Yeast Species. * Patient has elevated LFTs-->did not start anti-fungal in light of LFTs * Reculture Urine, Blood, and Stool should the WBC continue to trend up Status: Acute (6) Pneumonia Assessment and Plan: * Pulmonary (Dr. Mena) on board-->help appreciated; Dr. Jeffers covering while Dr. Mena away * Infectious Disease (Dr. Lawrence)-->help appreciated * Chest xray (08/26): right arm PICC is seen with the tip of distal subclavian vein. PICC may be used * Rapid A strep, Influenza A and B studies, Urine Legionella, Mycoplasma studies = Negative * Florastor 250mg PO bid * 08/07/17: +Strep Pneumoniae in the urine * Meropenem 500mg IV Q 8 hours (08/14/17 through 08/18/17) and Zosyn 2.25 mg IV Q6H (08/13/17 through 08/18/17) * Cefepime 1 gm IV Q24H: started on 08/19/17 and was discontinued by ID Dr. Dwyer on 08/30/17: monitor vitals and labs * s/p right posterior chest tube 08/19-08/24 * Sputum Culture 08/19/17 shows No growth * Pleural fluid 08/19/17: No growth Status: Acute (7) HTN (hypertension) Assessment and Plan: * Lopressor 50mg PO bid Status: Chronic (8) CKD (chronic kidney disease) on Dialysis Assessment and Plan: * Dr. Miranda (nephrology) consulted on the case * Hx of CKD-->Started on dialysis 08/15/17 * Kurtis catheter placed and removed 08/22 * s/p Right Chest Permcath 08/22 * Patient is on dialysis; oliguric * Phoslo 1334mg GT TID * Epoetin 10,000 unit IV MWF Status: Acute (9) Diabetes mellitus Assessment and Plan: * Accuchecks Q6H * HgbA1c 8.4 * As patient required a total of 34 units on Aspart Insulin Sliding Scale from 4 AM 08/31/17 through 4 AM 09/01/17, Levemir as been increased to 36 units SC Q12H starting 09/01/17. * Started peg feedings on 08/26/17 * Nepro-->50 ml/hour (10) HLD (hyperlipidemia) Assessment and Plan: * 08/27: held Crestor 10 mg PO HS secondary to rise in LFTs * 08/29: Liver function tests improving; waiting to restart statin Status: Chronic (11) Anemia Assessment and Plan: * Heme-oncology (Dr. Giles bender) on board-->help appreciated * Likely iron deficiency anemia based on prior admissions * Ferritin 27.4, Iron 22, TIBC 322, % Saturation 7 * Ferric Sodium Gluconate 125mg IVPB daily (active 08/08-08/16) * Procrit 10,000 units M-W- * Monitor Hgb/Hct: stable Status: Chronic (12) History of DVT (deep vein thrombosis) Assessment and Plan: * Patient was previously on Eliquis for a prior history of DVT. * Repeat dopplers 08/09/17 are negative for DVT * Off Heparin Drip 08/17/17 * Started Eliquis 2.5mg PO BID for atrial flutter and history of DVT Status: Chronic (13) UTI Assessment and Plan: * Infectious disease (Dr. Lawrence) on board-->help appreciated * Exchange jaquez out and repeat urine cultures * Urine Culture 08/12/17 showed Gram Negative Rods: NO identification and NO sensitivities were performed * Meropenem 500mg IV Q 12hours (active since 08/14/17 through 08/18/17) to cover for UTI per ID * Repeat Urine Culture 08/18/17 shows NO growth * 08/25: reculture in light of leukocytosis * 08/27: pending urine studies * 08/30: Urine Culture 08/27/17 showed Yeast Species but no antifungal secondary to recent history of Elevated LFTs Status: Chronic (14) Confusion; Alzheimer's Dementia Assessment and Plan: * Per daughter, patient has been getting bouts of confusion over the past year but appears at baseline. Patient has not seen formal neurology as outpatient per daughter. Per , prior to event, noted Alzheimers' disease dx one year ago * CT head w/o contrast (08/10/17):acute os subacute lacune infarct is not excluded in the left basal ganglia inferiorly with definitive chronic lacune identified in the right basal ganglia superiorly. No acute or subacute lobar brain infarction is appreciable by standard CT criteria. Mild age-related neuro degenerative changes are identifed. 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 No changes to dimensions at this time. Also, pt favoring Left side of head and has developed a 1x1 serous filled blister on his left ear. Primary nurse placed duoderm on the ear. Wound care nurse left duoderm in place , and recommends leaving it on until it falls off on its own. Pt has been NPO for several days, new peg inserted yesterday. Will be starting glucerna tube feedings later today. Albumin 3.3 * Turn q 2 hours * medihoney on unstageable ulcer * duoderm on left ear aurical ulcer * 09/02/17: examined with Wound Care Nurse Emeka Samuel and periphery of the Sacral Wound is pink with some bleeding however center is still black and therefore still unstageable. Continue spay with Cavelon followed by thick coating with MediHoney followed by covering with OptiFoam once a day. Status: Acute (16) Elevated LFTs Assessment and Plan: * 08/27: Yina * Discussed with cardiology-->changed amiodarone 200mg PO tid to amiodaron 200mg PO daily * D/C tylenol * Held Statin * patient is also on Rocephin to cover for pneumonia * Will not start antifungal * 08/29: starting to down trending since change in amiodarone dose; awaiting to restart statin * 08/30: continues to trend down. Amiodarone was discontinued * 09/01: AST, ALT, Alk Phos still elevated but stable * 09/02: AST, ALT, Alk Phos still elevated but stable Status: Acute (17). Hx Constipation NO bowel movement since 08/28/17 Miraalax given 08/30/17 and Lactulose 20 gm given 08/31/17 but still NO bowel movement as of 09/01/17 morning Fleet Enema ordered 09/01/17 and patient subsequently had 2 large bowel movements (18). Prophylactic measure Assessment and Plan: * Pepcid 20mg PO daily * Start Eliquis 2.5mg PO BID * s/p peg placement 08/25 * s/p trachesostomy 08/22 * s/p Permcath placement 08/22 removal Kurtis catheter * s/p right posterior chest tube 08/19-->removed 08/24 * s/p Right Arm PICC 08/26 * (Jovita Serrano): -->number provided to the nurse- ->consented for peg placement; discussed about LTAC 08/26 * Dr Mariangel Lazar spoke with Dr. Pickard, MARIAJOSE regarding patient's hospitalization up until this point 08/2609/01/17: I spoke with the patient's [place] with the assistance of Nurse Campos on 3 tower (as multiple attempts of using [employer] indicated that all of the [place] translators were busy) and explained all of the patient's diagnosises. 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 Her ultimate wish is to take patient to [facility] where their children live. I explained to patient that I would not know how that would be coordinated but that the Social Workers/Residence Manager at LTAC may be of assistance in this regard. I also informed her that I am not aware of any insurance company that would finance this request. She understands that the patient is awaiting insurance approval for LTAC. 09/01/17 and 09/02/17: I spoke with Label Pinker Demetria and we are still awaiting insurance authorization for LTAC placement. Cullen Barth D.O. Objective - Vital Signs/Intake and Output Vital Signs (last 24 hours): Temp Pulse Resp BP Pulse Ox 99.8 F H 101 H 17 120/49 L 98 09/02/17 07:50 09/02/17 09:14 09/02/17 09:14 09/02/17 09:14 09/02/17 09:14 Intake and Output: 09/02/17 09/02/17 06:59 18:59 Intake Total 600 100 Balance 600 100 - Medications Medications: Current Medications Albuterol/Ipratropium (Duoneb 3 Mg/0.5 Mg (3 Ml) Ud) 3 ml INH RQ6 [facility] Last Admin: 09/02/17 07:30 Dose: 3 ml Apixaban (Eliquis) 2.5 mg PO BID [facility] Last Admin: 09/01/17 17:48 Dose: 2.5 mg Aspirin (Aspirin Chewable) 81 mg PO DAILY [facility] Last Admin: 09/01/17 09:27 Dose: 81 mg Calcium Acetate (Phoslo) 2,001 mg GT TIDCC [facility] Last Admin: 09/02/17 08:42 Dose: 2,001 mg Famotidine (Pepcid) 20 mg PO DAILY [facility] Last Admin: 09/01/17 09:28 Dose: 20 mg Insulin Aspart (Novolog) 0 unit SC Q6 [facility] PRN Reason: Protocol Last Admin: 09/02/17 06:11 Dose: 3 unit Insulin Detemir (Levemir) 36 unit SC Q12 [facility] Last Admin: 09/01/17 21:43 Dose: 36 unit Lactobacillus Acidophilus (Bacid Acidophilus) 1 cap PO BID [facility] Last Admin: 09/01/17 17:48 Dose: 1 cap Lisinopril (Zestril) 5 mg PO DAILY [facility] Last Admin: 09/01/17 09:28 Dose: 5 mg Lorazepam (Ativan) 1 mg IVP Q2H PRN PRN Reason: Anxiety Last Admin: 08/26/17 11:10 Dose: 1 mg Metoprolol Tartrate (Lopressor) 50 mg PO BID [facility] Last Admin: 09/01/17 17:48 Dose: 50 mg Rosuvastatin Calcium (Crestor) 10 mg PO HS [facility] Last Admin: 08/26/17 22:41 Dose: 10 mg - Labs Labs: 09/02/17 06:17 09/02/17 06:17 PT 13.9 SECONDS (9.7-12.2) H 08/24/17 06:08 INR 1.2 08/24/17 06:08 APTT 55 SECONDS (21-34) H D 08/17/17 06:12
[2017-09-02] MEDS: Insulin Detemir 100 units/ml Vial (Levemir) SC SCH ×2 (10:38→21:58)
--- NOTE | 2017-09-02 12:42 | CP.PCM.PN ---
Subjective - Date & Time of Evaluation Date of Evaluation: 09/02/17 Time of Evaluation: 12:40 - Subjective Subjective: Remains on trach collar For dialysis today On PEG feeds- now 50 ml qh Same confusional state Objective - Vital Signs/Intake and Output Vital Signs (last 24 hours): Temp Pulse Resp BP Pulse Ox 99.9 F H 107 H 14 128/40 L 96 09/02/17 12:00 09/02/17 11:15 09/02/17 11:15 09/02/17 11:15 09/02/17 11:15 Intake and Output: 09/02/17 09/02/17 06:59 18:59 Intake Total 600 350 Balance 600 350 - Medications Medications: Current Medications Albuterol/Ipratropium (Duoneb 3 Mg/0.5 Mg (3 Ml) Ud) 3 ml INH RQ6 [facility] Last Admin: 09/02/17 07:30 Dose: 3 ml Apixaban (Eliquis) 2.5 mg PO BID [facility] Last Admin: 09/02/17 10:00 Dose: Not Given Aspirin (Aspirin Chewable) 81 mg PO DAILY [facility] Last Admin: 09/02/17 10:00 Dose: Not Given Calcium Acetate (Phoslo) 2,001 mg GT TIDCC [facility] Last Admin: 09/02/17 12:30 Dose: 2,001 mg Famotidine (Pepcid) 20 mg PO DAILY [facility] Last Admin: 09/02/17 10:00 Dose: Not Given Insulin Aspart (Novolog) 0 unit SC Q6 [facility] PRN Reason: Protocol Last Admin: 09/02/17 12:30 Dose: 5 unit Insulin Detemir (Levemir) 36 unit SC Q12 [facility] Last Admin: 09/02/17 10:38 Dose: 36 unit Lactobacillus Acidophilus (Bacid Acidophilus) 1 cap PO BID [facility] Last Admin: 09/02/17 10:00 Dose: Not Given Lisinopril (Zestril) 5 mg PO DAILY [facility] Last Admin: 09/02/17 10:00 Dose: Not Given Lorazepam (Ativan) 1 mg IVP Q2H PRN PRN Reason: Anxiety Last Admin: 08/26/17 11:10 Dose: 1 mg Metoprolol Tartrate (Lopressor) 50 mg PO BID [facility] Last Admin: 09/02/17 10:00 Dose: Not Given Rosuvastatin Calcium (Crestor) 10 mg PO HS [facility] Last Admin: 08/26/17 22:41 Dose: 10 mg - Labs Labs: 09/02/17 06:17 09/02/17 06:17 PT 13.9 SECONDS (9.7-12.2) H 08/24/17 06:08 INR 1.2 08/24/17 06:08 APTT 55 SECONDS (21-34) H D 08/17/17 06:12 - Constitutional Appears: No Acute Distress, Confused, Chronically Ill - Head Exam Head Exam: ATRAUMATIC, NORMAL INSPECTION - Eye Exam Eye Exam: EOMI, Normal appearance - Neck Exam Neck Exam: Normal Inspection. absent: Tenderness - Respiratory Exam Respiratory Exam: Clear to Ausculation Bilateral, NORMAL BREATHING PATTERN - Cardiovascular Exam Cardiovascular Exam: REGULAR RHYTHM, +S1 - GI/Abdominal Exam GI & Abdominal Exam: Soft. absent: Tenderness - Extremities Exam Extremities Exam: Normal Inspection. 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
[2017-09-03] MEDS: (Novolog) Insulin Aspart, Recombinant 100 u/ml 10 ml vial SC SCH ×4 (00:34→17:51)
[2017-09-03] MEDS: Albuterol-Ipratrop 3 mg / 0.5 (3 ml) UD INH SCH ×4 (01:34→20:28)
[2017-09-03 06:53] LABS: BASO # 0.1 K/uL (0.0-0.2); BASO % 0.8 % (0.0-2.0); EOS # 0.5 K/uL (0.0-0.7); EOS % 3.4 % (0.0-4.0); HEMATOCRIT 28.6 % (35.0-51.0); LYMPH # 1.3 K/uL (1.0-4.3); LYMPH % 9.6 % (20.0-40.0); MEAN CELL VOLUME 76.2 fL (80.0-94.0); MEAN CORPUSCULAR HEMOGLOBIN 23.9 pg (27.0-31.0); MEAN CORPUSCULAR HGB CONC 31.4 g/dL (33.0-37.0); MEAN PLATELET VOLUME 8.4 fL (7.2-11.7); MONO # 1.1 K/uL (0.0-0.8); MONO % 7.9 % (0.0-10.0); PLATELET COUNT 496 K/uL (130-400); RED CELL DISTRIBUTION WIDTH 22.9 % (11.5-14.5); WHITE BLOOD COUNT 13.5 K/uL (4.8-10.8)
[2017-09-03 07:04] LABS: POTASSIUM 4.6 mmol/L (3.6-5.2)
[2017-09-03 07:06] LABS: ALB/GLOB RATIO 0.7 (1.0-2.1); BILIRUBIN,TOTAL 0.6 mg/dL (0.2-1.3); TOTAL PROTEIN 7.4 g/dL (6.3-8.3)
[2017-09-03 07:07] LABS: CALCIUM 9.2 mg/dl (8.6-10.4)
[2017-09-03 08:51] LABS: MAGNESIUM 2.5 mg/dL (1.6-2.3); PHOSPHOROUS 3.4 mg/dL (2.5-4.5)
[2017-09-03 08:57] LABS: NEUTROPHIL 83 % (50-75); TOTAL CELLS COUNTED 100
--- NOTE | 2017-09-03 09:19 | CP.PCM.PN ---
Subjective - Date & Time of Evaluation Date of Evaluation: 09/03/17 Time of Evaluation: 09:00 - Subjective Subjective: Hospitalist Progress Note Patient was seen and examined at 9:00 AM 09/03/17 ICU Bed #5. 77 year old male with extensive medical history (please see Assessment and Plans below) was admitted on 08/06/17 for evaluation of SOB and Chest Pain. He was planned for Cardiac Catheterization on 08/09/17. Patient then had Acute Respiratory Failure and had to be intubated and placed on vent. He is S/P Tracheostomy 08/22/17 and PEG Tube Placement 08/25/17. Please see details below. ROS are not possible as although patient is awake he is not answering (not shaking his head yes or no) Exam: - Head Exam Head Exam: NORMAL INSPECTION - Eye Exam Eye Exam: could not evaluate EOM due to patient's current status Pupil Exam: round, equal, and reactive to light - Respiratory Exam Respiratory Exam: Decreased Breath Sounds bilateral lower lung buchaann but limited due to lack of patient participation Additional comments: Trach Collar - Cardiovascular Exam Cardiovascular Exam: REGULAR RHYTHM, +S1, +S2 - GI/Abdominal Exam GI & Abdominal Exam: Distended, Soft, Normal Bowel Sounds, could not palpate liver and spleen, PEG Tube Insertion Site LUQ without evidence of cellutlitis. absent: Firm, Guarding, Rigid, Tenderness, Rebound Additional comments: obese habitus - Extremities Exam Extremities Exam: Normal Capillary Refill, Pedal Edema. absent: Tenderness Additional comments: Prevalon boots b/l - Neurological Exam Additional comments: Could not be performed due to lack of patient participation - Skin Skin Exam: Unstageable Sacral Ulcer with NO surrounding signs of cellulitis. Shallow Ulcer Left outer ear Assessment and Plan - Assessment and Plan (Free Text) Assessment: (1) Acute Respiratory Failure ARDS Cardiac Arrest Pulmonary Edema Nonstemi Assessment and Plan: * Code Blue on 08/10: asystole, cardiopulmonary resuscitative measures initiated , requiring 3 epis, bicarbonate, ROSC achieved and intubated and brought to the ICU for further management; Patient in the ICU from 08/10 until present. * Pulmonary: Dr Mena (Dr. Jeffers covering until 09/04/17)-->help appreciated * Cardiology: Dr. Cortés on board-->help appreciated * GI (Dr. Wills) on board-->help appreciated * S/P Tracheostomy 08/22 * S/P Peg tube placement 08/25 * s/p insertion of right posterior chest tube 08/19-->removed 08/24/17 * There was consideration for possible thoracentesis of left side pleural effusion, evaluated by IR, there is no fluid to drain per Dr. Gross * Chest xray (08/26): right arm PICC is seen with the tip of distal subclavian vein. PICC may be used * Per cardiology, * Restart Aspirin 81mg PO daily * Patient does not need Plavix at this time * Recommend for Eliquis 2.5mg PO BID for atrial flutter * 08/27: patient is pending LTAC, he went eventually need cardiac catheterization when he has stabilized. Held statin secondary to elevated LFTs. Discussed with Dr. Cortés, lowered Amiodarone 200mg PO daily * 08/28: patient is pending LTAC, he went eventually need cardiac catheterization when he has stabilized. Liver function tests improving * 08/29: Fountain Waitress/Waiter Nehal has sent request to insurance for authorization for LTAC (2) Abnormal Stress Test History of AICD History of Coronary Artery Disease Assessment and Plan: * Cardiology (Dr. Cortés) on board-->help appreciated * TSH: 1.16; T4: 1.53 * Echocardiogram (08/08/17): left ventricle systolic function is severely impaired. EF: 25-30%; global hypokinesis of left ventricle mild aortic regurgitation. Mitral regurgitation is moderate. Moderate-severe pulmonary hypertension * Plan was for cardiac catheterization; delayed due to acute renal failure; Attempted gentle hydration and mucomyst on 08/09 to optimize prior to cath * On 08/10, patient was in asystole, ACLS protocol, ROSC achieved, intubated and transfered to the ICU. Patient in acute pulmonary edema. * Patient hospitalized in the ICU since 08/10/17 to present. * Medications: * Aspirin 81mg PO daily * Plavix d/c by cardiology * Lopressor 50mg PO bid * d/c Crestor 10mg POqHS secondary to rise in LFTS 08/27--->monitor LFTs daily * ARB d/c secondary to acute renal failure * 08/27: patient is pending LTAC, he went eventually need cardiac catheterization when he has stabilized. Held statin secondary to elevated LFTs. Discussed with Dr. Cortés, lowered Amiodarone 200mg PO daily * 08/28: patient is pending LTAC. He will eventually need cardiac catheterization when he has stabilized. Liver function tests improving. Statin is on hold (3) Atrial flutter Assessment and Plan: * Cardiology (Dr. Cortés) on board-->help appreciated * Refractory to Lopressor/Cardizem IVP * Eliquis 2.5mg PO bid * Amiodarone bolus-->Amiodarine drip on 08/24-->converted to Amiodarone 200mg PO TID on 08/26 and this was decreased to 200 mg 1x/day due to increased LFTs * 08/27: Discussed with Dr. Cortés, will lower Amiodarone 200mg PO daily and monitor LFTs. Statin held and tylenol d/c * 08/29: patient is pending LTAC, he will eventually need cardiac catheterization when he has stabilized. Liver function tests improving. Statin is on hold due to the elevated LFTs * 08/30: Cardiology discontinued the Amiodarone Status: Acute (4) Acute on Chronic Systolic CHF exacerbation Assessment and Plan: * Cardiology (Dr. Cortés) on board-->help appreciated * Transferred to the ICU on 08/10 following cardiac arrest and intubation. * Echocardiogram (08/08/17): left ventricular systolic function is severely impaired. EF: 25-30%; global hypokinesis of left ventricle mild aortic regurgitation. Mitral regurgitation is moderate. Moderate-severe pulmonary hypertension * Medications: * Aspirin 81mg PO daily * Plavix d/c by cardiology * Lopressor 50mg PO bid * d/c Crestor 10mg POqHS on 08/27 secondary to rise in LFTs * ARB d/c secondary to acute renal failure Status: Acute (5) Leukocytosis Assessment and Plan: * Patient's white count rising * Procalcitonin elevated * Pleural Fluid 08/19/17 did not show any growth * Blood cultures (08/26): no growth After 48hours X2 * UA and urine culture (08/27): Urine Culture showed Yeast Species. * Patient has elevated LFTs-->did not start anti-fungal in light of LFTs * Reculture Urine, Blood, and Stool should the WBC continue to trend up Status: Acute (6) Pneumonia Assessment and Plan: * Pulmonary (Dr. Mena) on board-->help appreciated; Dr. Jeffers covering while Dr. Mena away * Infectious Disease (Dr. Lawrence)-->help appreciated * Chest xray (08/26): right arm PICC is seen with the tip of distal subclavian vein. PICC may be used * Rapid A strep, Influenza A and B studies, Urine Legionella, Mycoplasma studies = Negative * Florastor 250mg PO bid * 08/07/17: +Strep Pneumoniae in the urine * Meropenem 500mg IV Q 8 hours (08/14/17 through 08/18/17) and Zosyn 2.25 mg IV Q6H (08/13/17 through 08/18/17) * Cefepime 1 gm IV Q24H: started on 08/19/17 and was discontinued by ID Dr. Dwyer on 08/30/17: monitor vitals and labs * s/p right posterior chest tube 08/19-08/24 * Sputum Culture 08/19/17 shows No growth * Pleural fluid 08/19/17: No growth Status: Acute (7) HTN (hypertension) Assessment and Plan: * Lopressor 50mg PO bid Status: Chronic (8) CKD (chronic kidney disease) on Dialysis Assessment and Plan: * Dr. Miranda (nephrology) consulted on the case * Hx of CKD-->Started on dialysis 08/15/17 * Kurtis catheter placed and removed 08/22 * s/p Right Chest Permcath 08/22 * Patient is on dialysis; oliguric * Phoslo 1334mg GT TID * Epoetin 10,000 unit IV MWF * 09/03: Hyponatremia noted and is trending back up Status: Acute (9) Diabetes mellitus Assessment and Plan: * Accuchecks Q6H * HgbA1c 8.4 * As patient required a total of 34 units on Aspart Insulin Sliding Scale from 4 AM 08/31/17 through 4 AM 09/01/17, Levemir as been increased to 36 units SC Q12H starting 09/01/17. * Started peg feedings on 08/26/17 * Nepro-->50 ml/hour (10) HLD (hyperlipidemia) Assessment and Plan: * 08/27: held Crestor 10 mg PO HS secondary to rise in LFTs * 08/29: Liver function tests improving; waiting to restart statin Status: Chronic (11) Anemia Assessment and Plan: * Heme-oncology (Dr. Giles bender) on board-->help appreciated * Likely iron deficiency anemia based on prior admissions * Ferritin 27.4, Iron 22, TIBC 322, % Saturation 7 * Ferric Sodium Gluconate 125mg IVPB daily (active 08/08-08/16) * Procrit 10,000 units M-W- * Monitor Hgb/Hct: stable Status: Chronic (12) History of DVT (deep vein thrombosis) Assessment and Plan: * Patient was previously on Eliquis for a prior history of DVT. * Repeat dopplers 08/09/17 are negative for DVT * Off Heparin Drip 08/17/17 * Started Eliquis 2.5mg PO BID for atrial flutter and history of DVT Status: Chronic (13) UTI Assessment and Plan: * Infectious disease (Dr. Lawrence) on board-->help appreciated * Exchange jaquez out and repeat urine cultures * Urine Culture 08/12/17 showed Gram Negative Rods: NO identification and NO sensitivities were performed * Meropenem 500mg IV Q 12hours (active since 08/14/17 through 08/18/17) to cover for UTI per ID * Repeat Urine Culture 08/18/17 shows NO growth * 08/25: reculture in light of leukocytosis * 08/27: pending urine studies * 08/30: Urine Culture 08/27/17 showed Yeast Species but no antifungal secondary to recent history of Elevated LFTs Status: Chronic (14) Confusion; Alzheimer's Dementia Assessment and Plan: * Per daughter, patient has been getting bouts of confusion over the past year but appears at baseline. Patient has not seen formal neurology as outpatient per daughter. Per , prior to event, noted Alzheimers' disease dx one year ago * CT head w/o contrast (08/10/17):acute os subacute lacune infarct is not excluded in the left basal ganglia inferiorly with definitive chronic lacune identified in the right basal ganglia superiorly. No acute or subacute lobar brain infarction is appreciable by standard CT criteria. Mild age-related neuro degenerative changes are identifed. 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 No changes to dimensions at this time. Also, pt favoring Left side of head and has developed a 1x1 serous filled blister on his left ear. Primary nurse placed duoderm on the ear. Wound care nurse left duoderm in place , and recommends leaving it on until it falls off on its own. Pt has been NPO for several days, new peg inserted yesterday. Will be starting glucerna tube feedings later today. Albumin 3.3 * Turn q 2 hours * medihoney on unstageable ulcer * duoderm on left ear aurical ulcer * 09/02/17: examined with Wound Care Nurse Emeka Samuel and periphery of the Sacral Wound is pink with some bleeding however center is still black and therefore still unstageable. Continue spray with Cavelon followed by thick coating with MediHoney followed by covering with OptiFoam once a day. * 09/03/17: Change of sacral ulcer dressing was performed by me with assitance from Nurse Lyman Status: Acute (16) Elevated LFTs Assessment and Plan: * 08/27: Yina * Discussed with cardiology-->changed amiodarone 200mg PO tid to amiodaron 200mg PO daily * D/C tylenol * Held Statin * patient is also on Rocephin to cover for pneumonia * Will not start antifungal * 08/29: starting to down trending since change in amiodarone dose; awaiting to restart statin * 08/30: continues to trend down. Amiodarone was discontinued * 09/01: AST, ALT, Alk Phos still elevated but stable * 09/02: AST, ALT, Alk Phos still elevated but stable * 09/03: LFTs stable Status: Acute (17). Hx Constipation NO bowel movement since 08/28/17 Miraalax given 08/30/17 and Lactulose 20 gm given 08/31/17 but still NO bowel movement as of 09/01/17 morning Fleet Enema ordered 09/01/17 and patient subsequently had 2 large bowel movements * 09/03: confirmed with Nurse Esmer that he is continuing to have normal bowel movements (18). Prophylactic measure Assessment and Plan: * Pepcid 20mg PO daily * Start Eliquis 2.5mg PO BID * s/p peg placement 08/25 * s/p trachesostomy 08/22 * s/p Permcath placement 08/22 removal Kurtis catheter * s/p right posterior chest tube 08/19-->removed 08/24 * s/p Right Arm PICC 08/26 * (Jovita Serrano): -->number provided to the nurse- ->consented for peg placement; discussed about LTAC 08/26 * Dr Mariangel Lazar spoke with Dr. Pickard, MARIAJOSE regarding patient's hospitalization up until this point 08/2609/01/17: I spoke with the patient's [place] with the assistance of Nurse Campos on 3 tower (as multiple attempts of using FONU2d indicated that all of the Irish translators were busy) and explained all of the patient's diagnosises. 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 Her ultimate wish is to take patient to [facility] where their children live. I explained to patient that I would not know how that would be coordinated but that the Social Workers/Wireless Architect at LTAC may be of assistance in this regard. I also informed her that I am not aware of any insurance company that would finance this request. She understands that the patient is awaiting insurance approval for LTAC. 09/01/17 and 09/02/17: I spoke with Script Worker Demetria and we are still awaiting insurance authorization for LTAC placement. Cullen Barth D.O. Objective - Vital Signs/Intake and Output Vital Signs (last 24 hours): Temp Pulse Resp BP Pulse Ox 98.6 F 105 H 31 H 139/35 L 89 L 09/03/17 08:00 09/03/17 08:17 09/03/17 08:17 09/03/17 08:17 09/03/17 08:17 Intake and Output: 09/03/17 09/03/17 06:59 18:59 Intake Total 600 50 Output Total 0 Balance 600 50 - Medications Medications: Current Medications Albuterol/Ipratropium (Duoneb 3 Mg/0.5 Mg (3 Ml) Ud) 3 ml INH RQ6 [facility] Last Admin: 09/03/17 08:12 Dose: 3 ml Apixaban (Eliquis) 2.5 mg PO BID [facility] Last Admin: 09/02/17 17:20 Dose: 2.5 mg Aspirin (Aspirin Chewable) 81 mg PO DAILY [facility] Last Admin: 09/02/17 10:00 Dose: Not Given Calcium Acetate (Phoslo) 2,001 mg GT TIDCC [facility] Last Admin: 09/02/17 17:20 Dose: 2,001 mg Famotidine (Pepcid) 20 mg PO DAILY [facility] Last Admin: 09/02/17 10:00 Dose: Not Given Insulin Aspart (Novolog) 0 unit SC Q6 [facility] PRN Reason: Protocol Last Admin: 09/03/17 06:49 Dose: 5 unit Insulin Detemir (Levemir) 36 unit SC Q12 [facility] Last Admin: 09/02/17 21:58 Dose: 36 unit Lactobacillus Acidophilus (Bacid Acidophilus) 1 cap PO BID [facility] Last Admin: 09/02/17 17:20 Dose: 1 cap Lisinopril (Zestril) 5 mg PO DAILY [facility] Last Admin: 09/02/17 10:00 Dose: Not Given Lorazepam (Ativan) 1 mg IVP Q2H PRN PRN Reason: Anxiety Last Admin: 09/02/17 15:18 Dose: 1 mg Metoprolol Tartrate (Lopressor) 50 mg PO BID [facility] Last Admin: 09/02/17 17:21 Dose: Not Given Rosuvastatin Calcium (Crestor) 10 mg PO HS [facility] Last Admin: 08/26/17 22:41 Dose: 10 mg - Labs Labs: 09/03/17 06:48 09/03/17 06:46 PT 13.9 SECONDS (9.7-12.2) H 08/24/17 06:08 INR 1.2 08/24/17 06:08 APTT 55 SECONDS (21-34) H D 08/17/17 06:12
[2017-09-03] MEDS: Lactobacillus Acidophilus 500 MU Cap PO SCH ×2 (10:28→17:53)
[2017-09-03] MEDS: Insulin Detemir 100 units/ml Vial (Levemir) SC SCH ×2 (10:30→21:35)
--- NOTE | 2017-09-03 13:09 | CP.PCM.PN ---
Subjective - Date & Time of Evaluation Date of Evaluation: 09/03/17 Time of Evaluation: 13:07 - Subjective Subjective: on trach collar family at bedside coughing unable to obtain ROS due to clinical condition Objective - Vital Signs/Intake and Output Vital Signs (last 24 hours): Temp Pulse Resp BP Pulse Ox 98.1 F 84 21 129/40 L 99 09/03/17 12:00 09/03/17 12:37 09/03/17 12:37 09/03/17 12:37 09/03/17 12:37 Intake and Output: 09/03/17 09/03/17 06:59 18:59 Intake Total 600 250 Output Total 0 Balance 600 250 - Medications Medications: Current Medications Albuterol/Ipratropium (Duoneb 3 Mg/0.5 Mg (3 Ml) Ud) 3 ml INH RQ6 [facility] Last Admin: 09/03/17 08:12 Dose: 3 ml Apixaban (Eliquis) 2.5 mg PO BID [facility] Last Admin: 09/03/17 10:29 Dose: 2.5 mg Aspirin (Aspirin Chewable) 81 mg PO DAILY [facility] Last Admin: 09/03/17 10:27 Dose: 81 mg Calcium Acetate (Phoslo) 2,001 mg GT TIDCC [facility] Last Admin: 09/03/17 12:59 Dose: 2,001 mg Famotidine (Pepcid) 20 mg PO DAILY [facility] Last Admin: 09/03/17 10:28 Dose: 20 mg Insulin Aspart (Novolog) 0 unit SC Q6 [facility] PRN Reason: Protocol Last Admin: 09/03/17 12:58 Dose: 5 unit Insulin Detemir (Levemir) 43 unit SC Q12 [facility] Last Admin: 09/03/17 10:30 Dose: 43 unit Lactobacillus Acidophilus (Bacid Acidophilus) 1 cap PO BID [facility] Last Admin: 09/03/17 10:28 Dose: 1 cap Lisinopril (Zestril) 5 mg PO DAILY [facility] Last Admin: 09/03/17 10:29 Dose: 5 mg Lorazepam (Ativan) 1 mg IVP Q2H PRN PRN Reason: Anxiety Last Admin: 09/02/17 15:18 Dose: 1 mg Metoprolol Tartrate (Lopressor) 50 mg PO BID [facility] Last Admin: 09/03/17 10:29 Dose: 50 mg Rosuvastatin Calcium (Crestor) 10 mg PO HS [facility] Last Admin: 08/26/17 22:41 Dose: 10 mg - Labs Labs: 09/03/17 06:48 09/03/17 06:46 PT 13.9 SECONDS (9.7-12.2) H 08/24/17 06:08 INR 1.2 08/24/17 06:08 APTT 55 SECONDS (21-34) H D 08/17/17 06:12 - Constitutional Appears: Chronically Ill - ENT Exam ENT Exam: Mucous Membranes Moist - Neck Exam Neck Exam: Full ROM. absent: Lymphadenopathy - Respiratory Exam Respiratory Exam: Rhonchi. absent: Accessory Muscle Use - Cardiovascular Exam Cardiovascular Exam: REGULAR RHYTHM. absent: Rubs - GI/Abdominal Exam GI & Abdominal Exam: Distended. absent: Tenderness - Extremities Exam Extremities Exam: absent: Pedal Edema - Neurological Exam Neurological Exam: absent: Alert, Oriented x3 Assessment and Plan - Assessment and Plan (Free Text) Assessment: esrd new trach collar ischemic cardiomyopathy post cardiac arrest not awake maint HD to be continued aggressive suctioning
--- NOTE | 2017-09-03 18:05 | CP.PCM.PN ---
Subjective - Date & Time of Evaluation Date of Evaluation: 09/02/17 Time of Evaluation: 17:40 - Subjective Subjective: Patient seen and evaluated Comfortable Physical Examination - Head Exam Head Exam: NORMAL INSPECTION - Eye Exam Eye Exam: PERRL - ENT Exam ENT Exam: Mucous Membranes Moist Additional comments: trach collar in place with minimal secretions noted - Neck Exam Neck Exam: Full ROM - Respiratory Exam Respiratory Exam: NORMAL BREATHING PATTERN - Cardiovascular Exam Cardiovascular Exam: +S1, +S2. absent: JVD, Murmur - GI/Abdominal Exam GI & Abdominal Exam: Soft, Normal Bowel Sounds Additional comments: central obesity - Extremities Exam Extremities Exam: Full ROM. absent: Pedal Edema - Neurological Exam Neurological Exam: Awake. absent: Alert, Oriented x3 - Psychiatric Exam Psychiatric exam: Flat Affect - Skin Skin Exam: Dry, Normal Color, Warm Objective - Vital Signs/Intake and Output Vital Signs (last 24 hours): Temp Pulse Resp BP Pulse Ox 98.0 F 100 H 10 L 114/21 L 97 09/03/17 15:26 09/03/17 17:17 09/03/17 17:17 09/03/17 17:17 09/03/17 17:17 Intake and Output: 09/03/17 09/03/17 06:59 18:59 Intake Total 600 500 Output Total 0 Balance 600 500 - Medications Medications: Current Medications Albuterol/Ipratropium (Duoneb 3 Mg/0.5 Mg (3 Ml) Ud) 3 ml INH RQ6 [facility] Last Admin: 09/03/17 13:51 Dose: 3 ml Apixaban (Eliquis) 2.5 mg PO BID [facility] Last Admin: 09/03/17 17:53 Dose: 2.5 mg Aspirin (Aspirin Chewable) 81 mg PO DAILY [facility] Last Admin: 09/03/17 10:27 Dose: 81 mg Calcium Acetate (Phoslo) 2,001 mg GT TIDCC [facility] Last Admin: 09/03/17 17:53 Dose: 2,001 mg Famotidine (Pepcid) 20 mg PO DAILY [facility] Last Admin: 09/03/17 10:28 Dose: 20 mg Insulin Aspart (Novolog) 0 unit SC Q6 [facility] PRN Reason: Protocol Last Admin: 09/03/17 17:51 Dose: 4 unit Insulin Detemir (Levemir) 43 unit SC Q12 [facility] Last Admin: 09/03/17 10:30 Dose: 43 unit Lactobacillus Acidophilus (Bacid Acidophilus) 1 cap PO BID [facility] Last Admin: 09/03/17 17:53 Dose: 1 cap Lisinopril (Zestril) 5 mg PO DAILY [facility] Last Admin: 09/03/17 10:29 Dose: 5 mg Lorazepam (Ativan) 1 mg IVP Q2H PRN PRN Reason: Anxiety Last Admin: 09/02/17 15:18 Dose: 1 mg Metoprolol Tartrate (Lopressor) 50 mg PO BID [facility] Last Admin: 09/03/17 17:53 Dose: 50 mg Rosuvastatin Calcium (Crestor) 10 mg PO HS [facility] Last Admin: 08/26/17 22:41 Dose: 10 mg - Labs Labs: 09/03/17 06:48 09/03/17 06:46 PT 13.9 SECONDS (9.7-12.2) H 08/24/17 06:08 INR 1.2 08/24/17 06:08 APTT 55 SECONDS (21-34) H D 08/17/17 06:12 Assessment and Plan - Assessment and Plan (Free Text) Assessment: Paraxysmal A Fib Intermittent Eliquis 2.5 mg PO BID CAD, chest pain -No current plans for cardiac cath (acute respiratory failure and elevated Cr) , history of abnormal stress test -Elevated Troponin likely due to chest compressions during cardiac arrest 08/10 -No acute ST changes on EKG -Continue ASA, Crestor, Metoprolol. Plavix discontinued. -Echocardiogram from 08/08/17 showed left ventricle systolic function is severely impaired. EF: 25-30%; global hypokinesis of LV mild AR. MR is moderate. Moderate-severe pulmonary hypertension Systolic CHF exacerbation -BNP [id number] on 08/06/17 -Continue ASA, Crestor, Metoprolol -Echocardiogram from 08/08/17 showed left ventricle systolic function is severely impaired. EF: 25-30%; global hypokinesis of LV mild AR. MR is moderate. Moderate-severe pulmonary hypertesnion Diabetes Mellitus ISS Continue to monitor ESRD on HD On Procrit and Phoslo Nephro on the case Prophylaxis Pepcid 20 mg PO daily Eliquis 2.5 mg PO BID (Renal precautions) Disposition Awaiting Transfer to LTAC
[2017-09-04] MEDS: (Novolog) Insulin Aspart, Recombinant 100 u/ml 10 ml vial SC SCH ×4 (00:24→18:30)
[2017-09-04] MEDS: Albuterol-Ipratrop 3 mg / 0.5 (3 ml) UD INH SCH ×4 (01:22→19:56)
[2017-09-04] MEDS: Insulin Detemir 100 units/ml Vial (Levemir) SC SCH ×2 (09:41→21:54)
[2017-09-04] MEDS: Lactobacillus Acidophilus 500 MU Cap PO SCH ×2 (09:42→18:30)
--- NOTE | 2017-09-04 12:39 | CP.PCM.PN ---
Subjective - Date & Time of Evaluation Date of Evaluation: 09/04/17 Time of Evaluation: 12:20 - Subjective Subjective: Hospitalist Progress Note Patient was seen and examined at 12:20 PM 09/04/17 ICU Bed #5. 77 year old male with extensive medical history (please see Assessment and Plans below) was admitted on 08/06/17 for evaluation of SOB and Chest Pain. He was planned for Cardiac Catheterization on 08/09/17. Patient then had Acute Respiratory Failure and had to be intubated and placed on vent. He is S/P Tracheostomy 08/22/17 and PEG Tube Placement 08/25/17. Please see details below. ROS are not possible as although patient is awake he is not answering (not shaking his head yes or no) Exam: - Head Exam Head Exam: NORMAL INSPECTION - Eye Exam Eye Exam: could not evaluate EOM due to patient's current status Pupil Exam: round, equal, and reactive to light - Respiratory Exam Respiratory Exam: Decreased Breath Sounds bilateral lower lung buchanan but limited due to lack of patient participation Additional comments: Trach Collar - Cardiovascular Exam Cardiovascular Exam: REGULAR RHYTHM, +S1, +S2 - GI/Abdominal Exam GI & Abdominal Exam: Distended, Soft, Normal Bowel Sounds, could not palpate liver and spleen, PEG Tube Insertion Site LUQ without evidence of cellutlitis. absent: Firm, Guarding, Rigid, Tenderness, Rebound Additional comments: obese habitus - Extremities Exam Extremities Exam: Normal Capillary Refill, Pedal Edema. absent: Tenderness Additional comments: Prevalon boots b/l - Neurological Exam Additional comments: Could not be performed due to lack of patient participation - Skin Skin Exam: Unstageable Sacral Ulcer with NO surrounding signs of cellulitis. Shallow Ulcer Left outer ear Assessment and Plan - Assessment and Plan (Free Text) Assessment: (1) Acute Respiratory Failure ARDS Cardiac Arrest Pulmonary Edema Nonstemi Assessment and Plan: * Code Blue on 08/10: asystole, cardiopulmonary resuscitative measures initiated , requiring 3 epis, bicarbonate, ROSC achieved and intubated and brought to the ICU for further management; Patient in the ICU from 08/10 until present. * Pulmonary: Dr Mena (Dr. Jeffers covering until 09/04/17)-->help appreciated * Cardiology: Dr. Cortés on board-->help appreciated * GI (Dr. Wills) on board-->help appreciated * S/P Tracheostomy 08/22 * S/P Peg tube placement 08/25 * s/p insertion of right posterior chest tube 08/19-->removed 08/24/17 * There was consideration for possible thoracentesis of left side pleural effusion, evaluated by IR, there is no fluid to drain per Dr. Gross * Chest xray (08/26): right arm PICC is seen with the tip of distal subclavian vein. PICC may be used * Per cardiology, * Restart Aspirin 81mg PO daily * Patient does not need Plavix at this time * Recommend for Eliquis 2.5mg PO BID for atrial flutter * 08/27: patient is pending LTAC, he went eventually need cardiac catheterization when he has stabilized. Held statin secondary to elevated LFTs. Discussed with Dr. Cortés, lowered Amiodarone 200mg PO daily * 08/28: patient is pending LTAC, he went eventually need cardiac catheterization when he has stabilized. Liver function tests improving * 08/29: Supervisor [employer] has sent request to insurance for authorization for LTAC (2) Abnormal Stress Test History of AICD History of Coronary Artery Disease Assessment and Plan: * Cardiology (Dr. Cortés) on board-->help appreciated * TSH: 1.16; T4: 1.53 * Echocardiogram (08/08/17): left ventricle systolic function is severely impaired. EF: 25-30%; global hypokinesis of left ventricle mild aortic regurgitation. Mitral regurgitation is moderate. Moderate-severe pulmonary hypertension * Plan was for cardiac catheterization; delayed due to acute renal failure; Attempted gentle hydration and mucomyst on 08/09 to optimize prior to cath * On 08/10, patient was in asystole, ACLS protocol, ROSC achieved, intubated and transfered to the ICU. Patient in acute pulmonary edema. * Patient hospitalized in the ICU since 08/10/17 to present. * Medications: * Aspirin 81mg PO daily * Plavix d/c by cardiology * Lopressor 50mg PO bid * d/c Crestor 10mg POqHS secondary to rise in LFTS 08/27--->monitor LFTs daily * ARB d/c secondary to acute renal failure * 08/27: patient is pending LTAC, he went eventually need cardiac catheterization when he has stabilized. Held statin secondary to elevated LFTs. Discussed with Dr. Cortés, lowered Amiodarone 200mg PO daily * 08/28: patient is pending LTAC. He will eventually need cardiac catheterization when he has stabilized. Liver function tests improving. Statin is on hold (3) Atrial flutter Assessment and Plan: * Cardiology (Dr. Cortés) on board-->help appreciated * Refractory to Lopressor/Cardizem IVP * Eliquis 2.5mg PO bid * Amiodarone bolus-->Amiodarine drip on 08/24-->converted to Amiodarone 200mg PO TID on 08/26 and this was decreased to 200 mg 1x/day due to increased LFTs * 08/27: Discussed with Dr. Cortés, will lower Amiodarone 200mg PO daily and monitor LFTs. Statin held and tylenol d/c * 08/29: patient is pending LTAC, he will eventually need cardiac catheterization when he has stabilized. Liver function tests improving. Statin is on hold due to the elevated LFTs * 08/30: Cardiology discontinued the Amiodarone Status: Acute (4) Acute on Chronic Systolic CHF exacerbation Assessment and Plan: * Cardiology (Dr. Cortés) on board-->help appreciated * Transferred to the ICU on 08/10 following cardiac arrest and intubation. * Echocardiogram (08/08/17): left ventricular systolic function is severely impaired. EF: 25-30%; global hypokinesis of left ventricle mild aortic regurgitation. Mitral regurgitation is moderate. Moderate-severe pulmonary hypertension * Medications: * Aspirin 81mg PO daily * Plavix d/c by cardiology * Lopressor 50mg PO bid * d/c Crestor 10mg POqHS on 08/27 secondary to rise in LFTs * ARB d/c secondary to acute renal failure Status: Acute (5) Leukocytosis Assessment and Plan: * Patient's white count rising * Procalcitonin elevated * Pleural Fluid 08/19/17 did not show any growth * Blood cultures (08/26): no growth After 48hours X2 * UA and urine culture (08/27): Urine Culture showed Yeast Species. * Patient has elevated LFTs-->did not start anti-fungal in light of LFTs * Reculture Urine, Blood, and Stool should the WBC continue to trend up Status: Acute (6) Pneumonia Assessment and Plan: * Pulmonary (Dr. Mena) on board-->help appreciated; Dr. Jeffers covering while Dr. Mena away * Infectious Disease (Dr. Lawrence)-->help appreciated * Chest xray (08/26): right arm PICC is seen with the tip of distal subclavian vein. PICC may be used * Rapid A strep, Influenza A and B studies, Urine Legionella, Mycoplasma studies = Negative * Florastor 250mg PO bid * 08/07/17: +Strep Pneumoniae in the urine * Meropenem 500mg IV Q 8 hours (08/14/17 through 08/18/17) and Zosyn 2.25 mg IV Q6H (08/13/17 through 08/18/17) * Cefepime 1 gm IV Q24H: started on 08/19/17 and was discontinued by ID Dr. Dwyer on 08/30/17: monitor vitals and labs * s/p right posterior chest tube 08/19-08/24 * Sputum Culture 08/19/17 shows No growth * Pleural fluid 08/19/17: No growth Status: Acute (7) HTN (hypertension) Assessment and Plan: * Lopressor 50mg PO bid Status: Chronic (8) CKD (chronic kidney disease) on Dialysis Assessment and Plan: * Dr. Miranda (nephrology) consulted on the case * Hx of CKD-->Started on dialysis 08/15/17 * Kurtis catheter placed and removed 08/22 * s/p Right Chest Permcath 08/22 * Patient is on dialysis; oliguric * Phoslo 1334mg GT TID * Epoetin 10,000 unit IV MWF * 09/03: Hyponatremia noted and is trending back up Status: Acute (9) Diabetes mellitus Assessment and Plan: * Accuchecks Q6H * HgbA1c 8.4 * 09/03/17: Please note that patient required additional 30 units on Insulin Sliding Scale from 4 AM 09/02/17 through 4 AM 09/03/17. Therefore half of this ( 15 units) will be added onto the Levemir. Therefore Levemir 43 units SC Q12H order placed . Adjust this based upon units required on Insulin Sliding Scale from 4 AM 09/04/17 through 4 AM 09/05/17. * Started peg feedings on 08/26/17 * Nepro-->50 ml/hour (10) HLD (hyperlipidemia) Assessment and Plan: * 08/27: held Crestor 10 mg PO HS secondary to rise in LFTs * 08/29: Liver function tests improving; waiting to restart statin Status: Chronic (11) Anemia Assessment and Plan: * Heme-oncology (Dr. Giles bender) on board-->help appreciated * Likely iron deficiency anemia based on prior admissions * Ferritin 27.4, Iron 22, TIBC 322, % Saturation 7 * Ferric Sodium Gluconate 125mg IVPB daily (active 08/08-08/16) * Procrit 10,000 units M-W- * Monitor Hgb/Hct: stable Status: Chronic (12) History of DVT (deep vein thrombosis) Assessment and Plan: * Patient was previously on Eliquis for a prior history of DVT. * Repeat dopplers 08/09/17 are negative for DVT * Off Heparin Drip 08/17/17 * Started Eliquis 2.5mg PO BID for atrial flutter and history of DVT Status: Chronic (13) UTI Assessment and Plan: * Infectious disease (Dr. Lawrence) on board-->help appreciated * Exchange jaquez out and repeat urine cultures * Urine Culture 08/12/17 showed Gram Negative Rods: NO identification and NO sensitivities were performed * Meropenem 500mg IV Q 12hours (active since 08/14/17 through 08/18/17) to cover for UTI per ID * Repeat Urine Culture 08/18/17 shows NO growth * 08/25: reculture in light of leukocytosis * 08/27: pending urine studies * 08/30: Urine Culture 08/27/17 showed Yeast Species but no antifungal secondary to recent history of Elevated LFTs Status: Chronic (14) Confusion; Alzheimer's Dementia Assessment and Plan: * Per daughter, patient has been getting bouts of confusion over the past year but appears at baseline. Patient has not seen formal neurology as outpatient per daughter. Per , prior to event, noted Alzheimers' disease dx one year ago * CT head w/o contrast (08/10/17):acute os subacute lacune infarct is not excluded in the left basal ganglia inferiorly with definitive chronic lacune identified in the right basal ganglia superiorly. No acute or subacute lobar brain infarction is appreciable by standard CT criteria. Mild age-related neuro degenerative changes are identifed. 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 No changes to dimensions at this time. Also, pt favoring Left side of head and has developed a 1x1 serous filled blister on his left ear. Primary nurse placed duoderm on the ear. Wound care nurse left duoderm in place , and recommends leaving it on until it falls off on its own. Pt has been NPO for several days, new peg inserted yesterday. Will be starting glucerna tube feedings later today. Albumin 3.3 * Turn q 2 hours * medihoney on unstageable ulcer * duoderm on left ear aurical ulcer * 09/02/17: examined with Wound Care Nurse Emeka Samuel and periphery of the Sacral Wound is pink with some bleeding however center is still black and therefore still unstageable. Continue spray with Cavelon followed by thick coating with MediHoney followed by covering with OptiFoam once a day. * 09/03/17: Change of sacral ulcer dressing was performed by me with assitance from Nurse Lyman * 09/04/17: 09/03/17: Change of sacral ulcer dressing was performed by me with assistance from ALEXANDRA Unger Status: Acute (16) Elevated LFTs Assessment and Plan: * 08/27: Yina * Discussed with cardiology-->changed amiodarone 200mg PO tid to amiodaron 200mg PO daily * D/C tylenol * Held Statin * patient is also on Rocephin to cover for pneumonia * Will not start antifungal * 08/29: starting to down trending since change in amiodarone dose; awaiting to restart statin * 08/30: continues to trend down. Amiodarone was discontinued * 09/01: AST, ALT, Alk Phos still elevated but stable * 09/02: AST, ALT, Alk Phos still elevated but stable * 09/03: LFTs stable * 09/04: LFTs stable Status: Acute (17). Hx Constipation NO bowel movement since 08/28/17 Miraalax given 08/30/17 and Lactulose 20 gm given 08/31/17 but still NO bowel movement as of 09/01/17 morning Fleet Enema ordered 09/01/17 and patient subsequently had 2 large bowel movements * 09/03: confirmed with Nurse Esmer that he is continuing to have normal bowel movements last at 5 AM * 09/04: NO bowel movement (18). Prophylactic measure Assessment and Plan: * Pepcid 20mg PO daily * Start Eliquis 2.5mg PO BID * s/p peg placement 08/25 * s/p trachesostomy 08/22 * s/p Permcath placement 08/22 removal Kurtis catheter * s/p right posterior chest tube 08/19-->removed 08/24 * s/p Right Arm PICC 08/26 * (Jovita Serrano): -->number provided to the nurse- ->consented for peg placement; discussed about LTAC 08/26 * Dr Mariangel Lazar spoke with Dr. Pickard, MARIAJOSE regarding patient's hospitalization up until this point 08/2609/01/17: I spoke with the patient's [place] with the assistance of Nurse Campos on 3 tower (as multiple attempts of using In[employer] indicated that all of the [place] translators were busy) and explained all of the patient's diagnosises. 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 Her ultimate wish is to take patient to [facility] where their children live. I explained to patient that I would not know how that would be coordinated but that the Social Workers/Gas Cutter at LTAC may be of assistance in this regard. I also informed her that I am not aware of any insurance company that would finance this request. She understands that the patient is awaiting insurance approval for LTAC. 09/01/17 and 09/02/17: I spoke with Protein Scientist Demetria and we are still awaiting insurance authorization for LTAC placement. Cullen Barth D.O. Objective - Vital Signs/Intake and Output Vital Signs (last 24 hours): Temp Pulse Resp BP Pulse Ox 98.2 F 91 H 30 H 116/51 L 99 09/04/17 04:00 09/04/17 11:37 09/04/17 11:37 09/04/17 11:37 09/04/17 11:37 Intake and Output: 09/04/17 09/04/17 06:59 18:59 Intake Total 700 200 Output Total 0 20 Balance 700 180 - Medications Medications: Current Medications Albuterol/Ipratropium (Duoneb 3 Mg/0.5 Mg (3 Ml) Ud) 3 ml INH RQ6 [facility] Last Admin: 09/04/17 08:08 Dose: 3 ml Apixaban (Eliquis) 2.5 mg PO BID [facility] Last Admin: 09/04/17 09:41 Dose: 2.5 mg Aspirin (Aspirin Chewable) 81 mg PO DAILY [facility] Last Admin: 09/04/17 09:41 Dose: 81 mg Calcium Acetate (Phoslo) 2,001 mg GT TIDCC [facility] Last Admin: 09/04/17 12:27 Dose: 2,001 mg Famotidine (Pepcid) 20 mg PO DAILY [facility] Last Admin: 09/04/17 09:41 Dose: 20 mg Insulin Aspart (Novolog) 0 unit SC Q6 [facility] PRN Reason: Protocol Last Admin: 09/04/17 12:25 Dose: 5 unit Insulin Detemir (Levemir) 43 unit SC Q12 [facility] Last Admin: 09/04/17 09:41 Dose: 43 unit Lactobacillus Acidophilus (Bacid Acidophilus) 1 cap PO BID [facility] Last Admin: 09/04/17 09:42 Dose: 1 cap Lisinopril (Zestril) 5 mg PO DAILY [facility] Last Admin: 09/04/17 09:42 Dose: 5 mg Lorazepam (Ativan) 1 mg IVP Q2H PRN PRN Reason: Anxiety Last Admin: 09/02/17 15:18 Dose: 1 mg Metoprolol Tartrate (Lopressor) 50 mg PO BID [facility] Last Admin: 09/04/17 09:40 Dose: 50 mg Rosuvastatin Calcium (Crestor) 10 mg PO HS [facility] Last Admin: 08/26/17 22:41 Dose: 10 mg - Labs Labs: 09/03/17 06:48 09/03/17 06:46 PT 13.9 SECONDS (9.7-12.2) H 08/24/17 06:08 INR 1.2 08/24/17 06:08 APTT 55 SECONDS (21-34) H D 08/17/17 06:12
[2017-09-04 19:06] LABS: BASO # 0.1 K/uL (0.0-0.2); BASO % 0.7 % (0.0-2.0); EOS # 0.5 K/uL (0.0-0.7); EOS % 4.1 % (0.0-4.0); HEMATOCRIT 29.1 % (35.0-51.0); LYMPH # 1.2 K/uL (1.0-4.3); LYMPH % 9.2 % (20.0-40.0); MEAN CELL VOLUME 75.1 fL (80.0-94.0); MEAN CORPUSCULAR HEMOGLOBIN 23.3 pg (27.0-31.0); MEAN CORPUSCULAR HGB CONC 31.1 g/dL (33.0-37.0); MEAN PLATELET VOLUME 8.2 fL (7.2-11.7); MONO # 0.9 K/uL (0.0-0.8); MONO % 6.7 % (0.0-10.0); PLATELET COUNT 501 K/uL (130-400); RED CELL DISTRIBUTION WIDTH 23.3 % (11.5-14.5); WHITE BLOOD COUNT 12.9 K/uL (4.8-10.8)
[2017-09-04 19:13] LABS: POTASSIUM 4.9 mmol/L (3.6-5.2)
[2017-09-04 19:15] LABS: BILIRUBIN,TOTAL 0.5 mg/dL (0.2-1.3); TOTAL PROTEIN 7.7 g/dL (6.3-8.3)
[2017-09-04 19:49] LABS: ALB/GLOB RATIO 0.6 (1.0-2.1)
[2017-09-04 19:59] LABS: EOSINOPHIL 3 % (0-4); NEUTROPHIL 84 % (50-75); TOTAL CELLS COUNTED 100
[2017-09-04 20:01] LABS: LARGE PLATELETS PRESENT
--- NOTE | 2017-09-04 20:52 | CP.PCM.PN ---
Subjective - Date & Time of Evaluation Date of Evaluation: 09/04/17 Time of Evaluation: 20:52 - Subjective Subjective: Patient seen and evaluated Comfortable Physical Examination - Head Exam Head Exam: NORMAL INSPECTION - Eye Exam Eye Exam: PERRL - ENT Exam ENT Exam: Mucous Membranes Moist Additional comments: trach collar in place with minimal secretions noted - Neck Exam Neck Exam: Full ROM - Respiratory Exam Respiratory Exam: NORMAL BREATHING PATTERN - Cardiovascular Exam Cardiovascular Exam: +S1, +S2. absent: JVD, Murmur - GI/Abdominal Exam GI & Abdominal Exam: Soft, Normal Bowel Sounds Additional comments: central obesity - Extremities Exam Extremities Exam: Full ROM. absent: Pedal Edema - Neurological Exam Neurological Exam: Awake. absent: Alert, Oriented x3 - Psychiatric Exam Psychiatric exam: Flat Affect - Skin Skin Exam: Dry, Normal Color, Warm Objective - Vital Signs/Intake and Output Vital Signs (last 24 hours): Temp Pulse Resp BP Pulse Ox 99.6 F 106 H 16 106/39 L 98 09/04/17 16:00 09/04/17 19:57 09/04/17 19:57 09/04/17 19:57 09/04/17 19:57 Intake and Output: 09/04/17 09/05/17 18:59 06:59 Intake Total 240 0 Output Total 20 Balance 220 0 - Medications Medications: Current Medications Albuterol/Ipratropium (Duoneb 3 Mg/0.5 Mg (3 Ml) Ud) 3 ml INH RQ6 [facility] Last Admin: 09/04/17 19:56 Dose: 3 ml Apixaban (Eliquis) 2.5 mg PO BID [facility] Last Admin: 09/04/17 18:30 Dose: 2.5 mg Aspirin (Aspirin Chewable) 81 mg PO DAILY [facility] Last Admin: 09/04/17 09:41 Dose: 81 mg Calcium Acetate (Phoslo) 2,001 mg GT TIDCC [facility] Last Admin: 09/04/17 17:30 Dose: 2,001 mg Famotidine (Pepcid) 20 mg PO DAILY [facility] Last Admin: 09/04/17 09:41 Dose: 20 mg Insulin Aspart (Novolog) 0 unit SC Q6 [facility] PRN Reason: Protocol Last Admin: 09/04/17 18:30 Dose: 2 unit Insulin Detemir (Levemir) 43 unit SC Q12 [facility] Last Admin: 09/04/17 09:41 Dose: 43 unit Lactobacillus Acidophilus (Bacid Acidophilus) 1 cap PO BID [facility] Last Admin: 09/04/17 18:30 Dose: 1 cap Lisinopril (Zestril) 5 mg PO DAILY [facility] Last Admin: 09/04/17 09:42 Dose: 5 mg Lorazepam (Ativan) 1 mg IVP Q2H PRN PRN Reason: Anxiety Last Admin: 09/02/17 15:18 Dose: 1 mg Metoprolol Tartrate (Lopressor) 50 mg PO BID [facility] Last Admin: 09/04/17 18:30 Dose: 50 mg Rosuvastatin Calcium (Crestor) 10 mg PO HS [facility] Last Admin: 08/26/17 22:41 Dose: 10 mg - Labs Labs: 09/04/17 18:51 09/04/17 18:51 PT 13.9 SECONDS (9.7-12.2) H 08/24/17 06:08 INR 1.2 08/24/17 06:08 APTT 55 SECONDS (21-34) H D 08/17/17 06:12 Assessment and Plan - Assessment and Plan (Free Text) Assessment: (1) Acute Respiratory Failure ARDS Cardiac Arrest Pulmonary Edema Nonstemi Assessment and Plan: * Code Blue on 08/10: asystole, cardiopulmonary resuscitative measures initiated , requiring 3 epis, bicarbonate, ROSC achieved and intubated and brought to the ICU for further management; Patient in the ICU from 08/10 until present. * Pulmonary: Dr Mena (Dr. Jeffers covering until 09/04/17)-->help appreciated * GI (Dr. Wills) on board-->help appreciated * S/P Tracheostomy 08/22 * S/P Peg tube placement 08/25 * s/p insertion of right posterior chest tube 08/19-->removed 08/24/17 * There was consideration for possible thoracentesis of left side pleural effusion, evaluated by IR, there is no fluid to drain per Dr. Gross * Chest xray (08/26): right arm PICC is seen with the tip of distal subclavian vein. PICC may be used * Per cardiology, * Restart Aspirin 81mg PO daily * Patient does not need Plavix at this time * Recommend for Eliquis 2.5mg PO BID for atrial flutter * 08/27: patient is pending LTAC, he went eventually need cardiac catheterization when he has stabilized. Held statin secondary to elevated LFTs. lowered Amiodarone 200mg PO daily * 08/28: patient is pending LTAC, he went eventually need cardiac catheterization when he has stabilized. Liver function tests improving * 08/29: [employer] has sent request to insurance for authorization for LTAC (2) Abnormal Stress Test History of AICD History of Coronary Artery Disease Assessment and Plan: * Cardiology (Dr. Cortés) on board-->help appreciated * TSH: 1.16; T4: 1.53 * Echocardiogram (08/08/17): left ventricle systolic function is severely impaired. EF: 25-30%; global hypokinesis of left ventricle mild aortic regurgitation. Mitral regurgitation is moderate. Moderate-severe pulmonary hypertension * Plan was for cardiac catheterization; delayed due to acute renal failure; Attempted gentle hydration and mucomyst on 08/09 to optimize prior to cath * On 08/10, patient was in asystole, ACLS protocol, ROSC achieved, intubated and transfered to the ICU. Patient in acute pulmonary edema. * Patient hospitalized in the ICU since 08/10/17 to present. * Medications: * Aspirin 81mg PO daily * Plavix d/tan * Lopressor 50mg PO bid * d/c Crestor 10mg POqHS secondary to rise in LFTS 08/27--->monitor LFTs daily * ARB d/c secondary to acute renal failure * 08/27: patient is pending LTAC, he went eventually need cardiac catheterization when he has stabilized. Held statin secondary to elevated LFTs. Discussed with Dr. Cortés, lowered Amiodarone 200mg PO daily * 08/28: patient is pending LTAC. He will eventually need cardiac catheterization when he has stabilized. Liver function tests improving. Statin is on hold (3) Atrial flutter Assessment and Plan: * Cardiology (Dr. Cortés) on board-->help appreciated * Refractory to Lopressor/Cardizem IVP * Eliquis 2.5mg PO bid * Amiodarone bolus-->Amiodarine drip on 08/24-->converted to Amiodarone 200mg PO TID on 08/26 and this was decreased to 200 mg 1x/day due to increased LFTs * 08/27: Discussed with Dr. Cortés, will lower Amiodarone 200mg PO daily and monitor LFTs. Statin held and tylenol d/c * 08/29: patient is pending LTAC, he will eventually need cardiac catheterization when he has stabilized. Liver function tests improving. Statin is on hold due to the elevated LFTs * 08/30: Cardiology discontinued the Amiodarone Status: Acute (4) Acute on Chronic Systolic CHF exacerbation Assessment and Plan: * Cardiology (Dr. Cortés) on board-->help appreciated * Transferred to the ICU on 08/10 following cardiac arrest and intubation. * Echocardiogram (08/08/17): left ventricular systolic function is severely impaired. EF: 25-30%; global hypokinesis of left ventricle mild aortic regurgitation. Mitral regurgitation is moderate. Moderate-severe pulmonary hypertension * Medications: * Aspirin 81mg PO daily * Plavix d/c by cardiology * Lopressor 50mg PO bid * d/c Crestor 10mg POqHS on 08/27 secondary to rise in LFTs * ARB d/c secondary to acute renal failure Status: Acute (5) Leukocytosis Assessment and Plan: * Patient's white count rising * Procalcitonin elevated * Pleural Fluid 08/19/17 did not show any growth * Blood cultures (08/26): no growth After 48hours X2 * UA and urine culture (08/27): Urine Culture showed Yeast Species. * Patient has elevated LFTs-->did not start anti-fungal in light of LFTs * Reculture Urine, Blood, and Stool should the WBC continue to trend up Status: Acute (6) Pneumonia Assessment and Plan: * Pulmonary (Dr. Mean) on board-->help appreciated; Dr. Jeffers covering while Dr. Mena away * Infectious Disease (Dr. Lawrence)-->help appreciated * Chest xray (08/26): right arm PICC is seen with the tip of distal subclavian vein. PICC may be used * Rapid A strep, Influenza A and B studies, Urine Legionella, Mycoplasma studies = Negative * Florastor 250mg PO bid * 08/07/17: +Strep Pneumoniae in the urine * Meropenem 500mg IV Q 8 hours (08/14/17 through 08/18/17) and Zosyn 2.25 mg IV Q6H (08/13/17 through 08/18/17) * Cefepime 1 gm IV Q24H: started on 08/19/17 and was discontinued by ID Dr. Dwyer on 08/30/17: monitor vitals and labs * s/p right posterior chest tube 08/19-08/24 * Sputum Culture 08/19/17 shows No growth * Pleural fluid 08/19/17: No growth Status: Acute (7) HTN (hypertension) Assessment and Plan: * Lopressor 50mg PO bid Status: Chronic (8) CKD (chronic kidney disease) on Dialysis Assessment and Plan: * Dr. Miranda (nephrology) consulted on the case * Hx of CKD-->Started on dialysis 08/15/17 * Kurtis catheter placed and removed 08/22 * s/p Right Chest Permcath 08/22 * Patient is on dialysis; oliguric * Phoslo 1334mg GT TID * Epoetin 10,000 unit IV MWF * 09/03: Hyponatremia noted and is trending back up Status: Acute (9) Diabetes mellitus Assessment and Plan: * Accuchecks Q6H * HgbA1c 8.4 * As patient required a total of 34 units on Aspart Insulin Sliding Scale from 4 AM 08/31/17 through 4 AM 09/01/17, Levemir as been increased to 36 units SC Q12H starting 09/01/17. * Started peg feedings on 08/26/17 * Nepro-->50 ml/hour (10) HLD (hyperlipidemia) Assessment and Plan: * 08/27: held Crestor 10 mg PO HS secondary to rise in LFTs * 08/29: Liver function tests improving; waiting to restart statin Status: Chronic (11) Anemia Assessment and Plan: * Heme-oncology (Dr. Giles bender) on board-->help appreciated * Likely iron deficiency anemia based on prior admissions * Ferritin 27.4, Iron 22, TIBC 322, % Saturation 7 * Ferric Sodium Gluconate 125mg IVPB daily (active 08/08-08/16) * Procrit 10,000 units M-W- * Monitor Hgb/Hct: stable Status: Chronic (12) History of DVT (deep vein thrombosis) Assessment and Plan: * Patient was previously on Eliquis for a prior history of DVT. * Repeat dopplers 08/09/17 are negative for DVT * Off Heparin Drip 08/17/17 * Started Eliquis 2.5mg PO BID for atrial flutter and history of DVT Status: Chronic (13) UTI Assessment and Plan: * Infectious disease (Dr. Lawrence) on board-->help appreciated * Exchange jaquez out and repeat urine cultures * Urine Culture 08/12/17 showed Gram Negative Rods: NO identification and NO sensitivities were performed * Meropenem 500mg IV Q 12hours (active since 08/14/17 through 08/18/17) to cover for UTI per ID * Repeat Urine Culture 08/18/17 shows NO growth * 08/25: reculture in light of leukocytosis * 08/27: pending urine studies * 08/30: Urine Culture 08/27/17 showed Yeast Species but no antifungal secondary to recent history of Elevated LFTs Status: Chronic (14) Confusion; Alzheimer's Dementia Assessment and Plan: * Per daughter, patient has been getting bouts of confusion over the past year but appears at baseline. Patient has not seen formal neurology as outpatient per daughter. Per , prior to event, noted Alzheimers' disease dx one year ago * CT head w/o contrast (08/10/17):acute os subacute lacune infarct is not excluded in the left basal ganglia inferiorly with definitive chronic lacune identified in the right basal ganglia superiorly. No acute or subacute lobar brain infarction is appreciable by standard CT criteria. Mild age-related neuro degenerative changes are identifed. 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 No changes to dimensions at this time. Also, pt favoring Left side of head and has developed a 1x1 serous filled blister on his left ear. Primary nurse placed duoderm on the ear. Wound care nurse left duoderm in place , and recommends leaving it on until it falls off on its own. Pt has been NPO for several days, new peg inserted yesterday. Will be starting glucerna tube feedings later today. Albumin 3.3 * Turn q 2 hours * medihoney on unstageable ulcer * duoderm on left ear aurical ulcer * 09/02/17: examined with Wound Care Nurse Emeka Samuel and periphery of the Sacral Wound is pink with some bleeding however center is still black and therefore still unstageable. Continue spray with Cavelon followed by thick coating with MediHoney followed by covering with OptiFoam once a day. * 09/03/17: Change of sacral ulcer dressing was performed by me with assitance from Nurse Lyman Status: Acute (16) Elevated LFTs Assessment and Plan: * 08/27: Yina * Discussed with cardiology-->changed amiodarone 200mg PO tid to amiodaron 200mg PO daily * D/C tylenol * Held Statin * patient is also on Rocephin to cover for pneumonia * Will not start antifungal * 08/29: starting to down trending since change in amiodarone dose; awaiting to restart statin * 08/30: continues to trend down. Amiodarone was discontinued * 09/01: AST, ALT, Alk Phos still elevated but stable * 09/02: AST, ALT, Alk Phos still elevated but stable * 09/03: LFTs stable Status: Acute (17). Hx Constipation NO bowel movement since 08/28/17 Miraalax given 08/30/17 and Lactulose 20 gm given 08/31/17 but still NO bowel movement as of 09/01/17 morning Fleet Enema ordered 09/01/17 and patient subsequently had 2 large bowel movements * 09/03: confirmed with Nurse Lyman that he is continuing to have normal bowel movements (18). Prophylactic measure Assessment and Plan: * Pepcid 20mg PO daily * Start Eliquis 2.5mg PO BID * s/p peg placement 08/25 * s/p trachesostomy 08/22 * s/p Permcath placement 08/22 removal Kurtis catheter * s/p right posterior chest tube 08/19-->removed 08/24 * s/p Right Arm PICC 08/26 * (Jovita Serrano): -->number provided to the nurse- ->consented for peg placement; discussed about LTAC 08/26 * Dr Mariangel Lazar spoke with MARIAJOSE Figueroa regarding patient's hospitalization up until this point 08/2609/01/17: I spoke with the patient's [place] with the assistance of Nurse Beth on 3 tower (as multiple attempts of using [employer] indicated that all of the [place] translators were busy) and explained all of the patient's diagnosises. 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 Her ultimate wish is to take patient to [facility] where their children live. I explained to patient that I would not know how that would be coordinated but that the Social Workers/Pre Sales Systems Engineer at LTAC may be of assistance in this regard. I also informed her that I am not aware of any insurance company that would finance this request. She understands that the patient is awaiting insurance approval for LTAC.
--- NOTE | 2017-09-04 20:52 | CP.PCM.PN ---
Subjective - Date & Time of Evaluation Date of Evaluation: 09/03/17 Time of Evaluation: 13:00 - Subjective Subjective: Patient seen and evaluated No new events noted Physical Examination - Head Exam Head Exam: NORMAL INSPECTION - Eye Exam Eye Exam: PERRL - ENT Exam ENT Exam: Mucous Membranes Moist Additional comments: trach collar in place with minimal secretions noted - Neck Exam Neck Exam: Full ROM - Respiratory Exam Respiratory Exam: NORMAL BREATHING PATTERN - Cardiovascular Exam Cardiovascular Exam: +S1, +S2. absent: JVD, Murmur - GI/Abdominal Exam GI & Abdominal Exam: Soft, Normal Bowel Sounds Additional comments: central obesity - Extremities Exam Extremities Exam: Full ROM. absent: Pedal Edema - Neurological Exam Neurological Exam: Awake. absent: Alert, Oriented x3 - Psychiatric Exam Psychiatric exam: Flat Affect - Skin Skin Exam: Dry, Normal Color, Warm Objective - Vital Signs/Intake and Output Vital Signs (last 24 hours): Temp Pulse Resp BP Pulse Ox 99.6 F 106 H 16 106/39 L 98 09/04/17 16:00 09/04/17 19:57 09/04/17 19:57 09/04/17 19:57 09/04/17 19:57 Intake and Output: 09/04/17 09/05/17 18:59 06:59 Intake Total 240 0 Output Total 20 Balance 220 0 - Medications Medications: Current Medications Albuterol/Ipratropium (Duoneb 3 Mg/0.5 Mg (3 Ml) Ud) 3 ml INH RQ6 [facility] Last Admin: 09/04/17 19:56 Dose: 3 ml Apixaban (Eliquis) 2.5 mg PO BID [facility] Last Admin: 09/04/17 18:30 Dose: 2.5 mg Aspirin (Aspirin Chewable) 81 mg PO DAILY [facility] Last Admin: 09/04/17 09:41 Dose: 81 mg Calcium Acetate (Phoslo) 2,001 mg GT TIDCC [facility] Last Admin: 09/04/17 17:30 Dose: 2,001 mg Famotidine (Pepcid) 20 mg PO DAILY [facility] Last Admin: 09/04/17 09:41 Dose: 20 mg Insulin Aspart (Novolog) 0 unit SC Q6 [facility] PRN Reason: Protocol Last Admin: 09/04/17 18:30 Dose: 2 unit Insulin Detemir (Levemir) 43 unit SC Q12 [facility] Last Admin: 09/04/17 09:41 Dose: 43 unit Lactobacillus Acidophilus (Bacid Acidophilus) 1 cap PO BID [facility] Last Admin: 09/04/17 18:30 Dose: 1 cap Lisinopril (Zestril) 5 mg PO DAILY [facility] Last Admin: 09/04/17 09:42 Dose: 5 mg Lorazepam (Ativan) 1 mg IVP Q2H PRN PRN Reason: Anxiety Last Admin: 09/02/17 15:18 Dose: 1 mg Metoprolol Tartrate (Lopressor) 50 mg PO BID [facility] Last Admin: 09/04/17 18:30 Dose: 50 mg Rosuvastatin Calcium (Crestor) 10 mg PO HS [facility] Last Admin: 08/26/17 22:41 Dose: 10 mg - Labs Labs: 09/04/17 18:51 09/04/17 18:51 PT 13.9 SECONDS (9.7-12.2) H 08/24/17 06:08 INR 1.2 08/24/17 06:08 APTT 55 SECONDS (21-34) H D 08/17/17 06:12 Assessment and Plan - Assessment and Plan (Free Text) Assessment: (1) Acute Respiratory Failure ARDS Cardiac Arrest Pulmonary Edema Nonstemi Assessment and Plan: * Code Blue on 08/10: asystole, cardiopulmonary resuscitative measures initiated , requiring 3 epis, bicarbonate, ROSC achieved and intubated and brought to the ICU for further management; Patient in the ICU from 08/10 until present. * Pulmonary: Dr Mena (Dr. Jeffers covering until 09/04/17)-->help appreciated * GI (Dr. Wills) on board-->help appreciated * S/P Tracheostomy 08/22 * S/P Peg tube placement 08/25 * s/p insertion of right posterior chest tube 08/19-->removed 08/24/17 * There was consideration for possible thoracentesis of left side pleural effusion, evaluated by IR, there is no fluid to drain per Dr. Gross * Chest xray (08/26): right arm PICC is seen with the tip of distal subclavian vein. PICC may be used * Per cardiology, * Restart Aspirin 81mg PO daily * Patient does not need Plavix at this time * Recommend for Eliquis 2.5mg PO BID for atrial flutter * 08/27: patient is pending LTAC, he went eventually need cardiac catheterization when he has stabilized. Held statin secondary to elevated LFTs. lowered Amiodarone 200mg PO daily * 08/28: patient is pending LTAC, he went eventually need cardiac catheterization when he has stabilized. Liver function tests improving * 08/29: Finish Sander Nehal has sent request to insurance for authorization for LTAC (2) Abnormal Stress Test History of AICD History of Coronary Artery Disease Assessment and Plan: * Cardiology (Dr. Cortés) on board-->help appreciated * TSH: 1.16; T4: 1.53 * Echocardiogram (08/08/17): left ventricle systolic function is severely impaired. EF: 25-30%; global hypokinesis of left ventricle mild aortic regurgitation. Mitral regurgitation is moderate. Moderate-severe pulmonary hypertension * Plan was for cardiac catheterization; delayed due to acute renal failure; Attempted gentle hydration and mucomyst on 08/09 to optimize prior to cath * On 08/10, patient was in asystole, ACLS protocol, ROSC achieved, intubated and transfered to the ICU. Patient in acute pulmonary edema. * Patient hospitalized in the ICU since 08/10/17 to present. * Medications: * Aspirin 81mg PO daily * Plavix d/tan * Lopressor 50mg PO bid * d/c Crestor 10mg POqHS secondary to rise in LFTS 08/27--->monitor LFTs daily * ARB d/c secondary to acute renal failure * 08/27: patient is pending LTAC, he went eventually need cardiac catheterization when he has stabilized. Held statin secondary to elevated LFTs. Discussed with Dr. Cortés, lowered Amiodarone 200mg PO daily * 08/28: patient is pending LTAC. He will eventually need cardiac catheterization when he has stabilized. Liver function tests improving. Statin is on hold (3) Atrial flutter Assessment and Plan: * Cardiology (Dr. Cortés) on board-->help appreciated * Refractory to Lopressor/Cardizem IVP * Eliquis 2.5mg PO bid * Amiodarone bolus-->Amiodarine drip on 08/24-->converted to Amiodarone 200mg PO TID on 08/26 and this was decreased to 200 mg 1x/day due to increased LFTs * 08/27: Discussed with Dr. Cortés, will lower Amiodarone 200mg PO daily and monitor LFTs. Statin held and tylenol d/c * 08/29: patient is pending LTAC, he will eventually need cardiac catheterization when he has stabilized. Liver function tests improving. Statin is on hold due to the elevated LFTs * 08/30: Cardiology discontinued the Amiodarone Status: Acute (4) Acute on Chronic Systolic CHF exacerbation Assessment and Plan: * Cardiology (Dr. Cortés) on board-->help appreciated * Transferred to the ICU on 08/10 following cardiac arrest and intubation. * Echocardiogram (08/08/17): left ventricular systolic function is severely impaired. EF: 25-30%; global hypokinesis of left ventricle mild aortic regurgitation. Mitral regurgitation is moderate. Moderate-severe pulmonary hypertension * Medications: * Aspirin 81mg PO daily * Plavix d/c by cardiology * Lopressor 50mg PO bid * d/c Crestor 10mg POqHS on 08/27 secondary to rise in LFTs * ARB d/c secondary to acute renal failure Status: Acute (5) Leukocytosis Assessment and Plan: * Patient's white count rising * Procalcitonin elevated * Pleural Fluid 08/19/17 did not show any growth * Blood cultures (08/26): no growth After 48hours X2 * UA and urine culture (08/27): Urine Culture showed Yeast Species. * Patient has elevated LFTs-->did not start anti-fungal in light of LFTs * Reculture Urine, Blood, and Stool should the WBC continue to trend up Status: Acute (6) Pneumonia Assessment and Plan: * Pulmonary (Dr. Mena) on board-->help appreciated; Dr. Jeffers covering while Dr. Mena away * Infectious Disease (Dr. Lawrence)-->help appreciated * Chest xray (08/26): right arm PICC is seen with the tip of distal subclavian vein. PICC may be used * Rapid A strep, Influenza A and B studies, Urine Legionella, Mycoplasma studies = Negative * Florastor 250mg PO bid * 08/07/17: +Strep Pneumoniae in the urine * Meropenem 500mg IV Q 8 hours (08/14/17 through 08/18/17) and Zosyn 2.25 mg IV Q6H (08/13/17 through 08/18/17) * Cefepime 1 gm IV Q24H: started on 08/19/17 and was discontinued by ID Dr. Dwyer on 08/30/17: monitor vitals and labs * s/p right posterior chest tube 08/19-08/24 * Sputum Culture 08/19/17 shows No growth * Pleural fluid 08/19/17: No growth Status: Acute (7) HTN (hypertension) Assessment and Plan: * Lopressor 50mg PO bid Status: Chronic (8) CKD (chronic kidney disease) on Dialysis Assessment and Plan: * Dr. Miranda (nephrology) consulted on the case * Hx of CKD-->Started on dialysis 08/15/17 * Kurtis catheter placed and removed 08/22 * s/p Right Chest Permcath 08/22 * Patient is on dialysis; oliguric * Phoslo 1334mg GT TID * Epoetin 10,000 unit IV MWF * 09/03: Hyponatremia noted and is trending back up Status: Acute (9) Diabetes mellitus Assessment and Plan: * Accuchecks Q6H * HgbA1c 8.4 * As patient required a total of 34 units on Aspart Insulin Sliding Scale from 4 AM 08/31/17 through 4 AM 09/01/17, Levemir as been increased to 36 units SC Q12H starting 09/01/17. * Started peg feedings on 08/26/17 * Nepro-->50 ml/hour (10) HLD (hyperlipidemia) Assessment and Plan: * 08/27: held Crestor 10 mg PO HS secondary to rise in LFTs * 08/29: Liver function tests improving; waiting to restart statin Status: Chronic (11) Anemia Assessment and Plan: * Heme-oncology (Dr. Giles bender) on board-->help appreciated * Likely iron deficiency anemia based on prior admissions * Ferritin 27.4, Iron 22, TIBC 322, % Saturation 7 * Ferric Sodium Gluconate 125mg IVPB daily (active 08/08-08/16) * Procrit 10,000 units M-W- * Monitor Hgb/Hct: stable Status: Chronic (12) History of DVT (deep vein thrombosis) Assessment and Plan: * Patient was previously on Eliquis for a prior history of DVT. * Repeat dopplers 08/09/17 are negative for DVT * Off Heparin Drip 08/17/17 * Started Eliquis 2.5mg PO BID for atrial flutter and history of DVT Status: Chronic (13) UTI Assessment and Plan: * Infectious disease (Dr. Lawrence) on board-->help appreciated * Exchange jaquez out and repeat urine cultures * Urine Culture 08/12/17 showed Gram Negative Rods: NO identification and NO sensitivities were performed * Meropenem 500mg IV Q 12hours (active since 08/14/17 through 08/18/17) to cover for UTI per ID * Repeat Urine Culture 08/18/17 shows NO growth * 08/25: reculture in light of leukocytosis * 08/27: pending urine studies * 08/30: Urine Culture 08/27/17 showed Yeast Species but no antifungal secondary to recent history of Elevated LFTs Status: Chronic (14) Confusion; Alzheimer's Dementia Assessment and Plan: * Per daughter, patient has been getting bouts of confusion over the past year but appears at baseline. Patient has not seen formal neurology as outpatient per daughter. Per , prior to event, noted Alzheimers' disease dx one year ago * CT head w/o contrast (08/10/17):acute os subacute lacune infarct is not excluded in the left basal ganglia inferiorly with definitive chronic lacune identified in the right basal ganglia superiorly. No acute or subacute lobar brain infarction is appreciable by standard CT criteria. Mild age-related neuro degenerative changes are identifed. 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 No changes to dimensions at this time. Also, pt favoring Left side of head and has developed a 1x1 serous filled blister on his left ear. Primary nurse placed duoderm on the ear. Wound care nurse left duoderm in place , and recommends leaving it on until it falls off on its own. Pt has been NPO for several days, new peg inserted yesterday. Will be starting glucerna tube feedings later today. Albumin 3.3 * Turn q 2 hours * medihoney on unstageable ulcer * duoderm on left ear aurical ulcer * 09/02/17: examined with Wound Care Nurse Emeka Samuel and periphery of the Sacral Wound is pink with some bleeding however center is still black and therefore still unstageable. Continue spray with Cavelon followed by thick coating with MediHoney followed by covering with OptiFoam once a day. * 09/03/17: Change of sacral ulcer dressing was performed by me with assitance from Nurse Lyman Status: Acute (16) Elevated LFTs Assessment and Plan: * 08/27: Yina * Discussed with cardiology-->changed amiodarone 200mg PO tid to amiodaron 200mg PO daily * D/C tylenol * Held Statin * patient is also on Rocephin to cover for pneumonia * Will not start antifungal * 08/29: starting to down trending since change in amiodarone dose; awaiting to restart statin * 08/30: continues to trend down. Amiodarone was discontinued * 09/01: AST, ALT, Alk Phos still elevated but stable * 09/02: AST, ALT, Alk Phos still elevated but stable * 09/03: LFTs stable Status: Acute (17). Hx Constipation NO bowel movement since 08/28/17 Miraalax given 08/30/17 and Lactulose 20 gm given 08/31/17 but still NO bowel movement as of 09/01/17 morning Fleet Enema ordered 09/01/17 and patient subsequently had 2 large bowel movements * 09/03: confirmed with Nurse Lyman that he is continuing to have normal bowel movements (18). Prophylactic measure Assessment and Plan: * Pepcid 20mg PO daily * Start Eliquis 2.5mg PO BID * s/p peg placement 08/25 * s/p trachesostomy 08/22 * s/p Permcath placement 08/22 removal Kurtis catheter * s/p right posterior chest tube 08/19-->removed 08/24 * s/p Right Arm PICC 08/26 * (Jovita Serrano): -->number provided to the nurse- ->consented for peg placement; discussed about LTAC 08/26 * Dr Mariangel Lazar spoke with MARIAJOSE Figueroa regarding patient's hospitalization up until this point 08/2609/01/17: I spoke with the patient's [place] with the assistance of Nurse Campos on 3 tower (as multiple attempts of using [employer] indicated that all of the [place] translators were busy) and explained all of the patient's diagnosises. 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 Her ultimate wish is to take patient to [facility] where their children live. I explained to patient that I would not know how that would be coordinated but that the Social Workers/Machine Records Units Supervisor at LTAC may be of assistance in this regard. I also informed her that I am not aware of any insurance company that would finance this request. She understands that the patient is awaiting insurance approval for LTAC.
[2017-09-05] MEDS: (Novolog) Insulin Aspart, Recombinant 100 u/ml 10 ml vial SC SCH ×4 (00:52→17:48)
[2017-09-05] MEDS: Albuterol-Ipratrop 3 mg / 0.5 (3 ml) UD INH SCH ×4 (01:05→19:47)
[2017-09-05 06:20] LABS: BASO # 0.1 K/uL (0.0-0.2); BASO % 0.7 % (0.0-2.0); EOS # 0.7 K/uL (0.0-0.7); EOS % 4.7 % (0.0-4.0); HEMATOCRIT 28.9 % (35.0-51.0); LYMPH # 1.6 K/uL (1.0-4.3); LYMPH % 11.7 % (20.0-40.0); MEAN CELL VOLUME 75.4 fL (80.0-94.0); MEAN CORPUSCULAR HEMOGLOBIN 23.8 pg (27.0-31.0); MEAN CORPUSCULAR HGB CONC 31.6 g/dL (33.0-37.0); MEAN PLATELET VOLUME 8.4 fL (7.2-11.7); MONO # 0.9 K/uL (0.0-0.8); MONO % 6.3 % (0.0-10.0); NRBC % 0.1 % (0.0-2.0); RED CELL DISTRIBUTION WIDTH 23.2 % (11.5-14.5)
[2017-09-05 06:34] LABS: ALB/GLOB RATIO 0.7 (1.0-2.1); BILIRUBIN,TOTAL 0.6 mg/dL (0.2-1.3); TOTAL PROTEIN 7.7 g/dL (6.3-8.3)
[2017-09-05 06:35] LABS: CALCIUM 9.6 mg/dl (8.6-10.4)
[2017-09-05] MEDS: Insulin Detemir 100 units/ml Vial (Levemir) SC SCH ×2 (10:01→22:40)
[2017-09-05] MEDS: Lactobacillus Acidophilus 500 MU Cap PO SCH ×2 (10:01→17:51)
--- NOTE | 2017-09-05 10:51 | CP.PCM.PN ---
Subjective - Date & Time of Evaluation Date of Evaluation: 09/05/17 Time of Evaluation: 10:48 - Subjective Subjective: On dialysis; tolerating well BUN very elevated- will need larger dialyzer next HD Will try to UF 2000ml Remains on trach collar, lethargic as before Objective - Vital Signs/Intake and Output Vital Signs (last 24 hours): Temp Pulse Resp BP Pulse Ox 98.2 F 107 H 17 104/48 L 90 L 09/05/17 09:13 09/05/17 09:13 09/05/17 09:13 09/05/17 09:58 09/05/17 09:13 Intake and Output: 09/05/17 09/05/17 06:59 18:59 Intake Total 320 90 Output Total 0 0 Balance 320 90 - Medications Medications: Current Medications Albuterol/Ipratropium (Duoneb 3 Mg/0.5 Mg (3 Ml) Ud) 3 ml INH RQ6 [facility] Last Admin: 09/05/17 07:49 Dose: 3 ml Apixaban (Eliquis) 2.5 mg PO BID [facility] Last Admin: 09/05/17 10:01 Dose: Not Given Aspirin (Aspirin Chewable) 81 mg PO DAILY [facility] Last Admin: 09/05/17 10:01 Dose: Not Given Calcium Acetate (Phoslo) 2,001 mg GT TIDCC [facility] Last Admin: 09/05/17 08:50 Dose: Not Given Famotidine (Pepcid) 20 mg PO DAILY [facility] Last Admin: 09/05/17 10:01 Dose: Not Given Insulin Aspart (Novolog) 0 unit SC Q6 [facility] PRN Reason: Protocol Last Admin: 09/05/17 06:00 Dose: 1 unit Insulin Detemir (Levemir) 43 unit SC Q12 [facility] Last Admin: 09/05/17 10:01 Dose: Not Given Lactobacillus Acidophilus (Bacid Acidophilus) 1 cap PO BID [facility] Last Admin: 09/05/17 10:01 Dose: Not Given Lisinopril (Zestril) 5 mg PO DAILY [facility] Last Admin: 09/05/17 10:01 Dose: Not Given Lorazepam (Ativan) 1 mg IVP Q2H PRN PRN Reason: Anxiety Last Admin: 09/02/17 15:18 Dose: 1 mg Metoprolol Tartrate (Lopressor) 50 mg PO BID [facility] Last Admin: 09/05/17 10:01 Dose: Not Given Rosuvastatin Calcium (Crestor) 10 mg PO [facility] Last Admin: 08/26/17 22:41 Dose: 10 mg - Labs Labs: 09/05/17 06:09 09/05/17 06:10 PT 13.9 SECONDS (9.7-12.2) H 08/24/17 06:08 INR 1.2 08/24/17 06:08 APTT 55 SECONDS (21-34) H D 08/17/17 06:12 - Constitutional Appears: Confused, Chronically Ill - Head Exam Head Exam: ATRAUMATIC, NORMAL INSPECTION - Eye Exam Eye Exam: EOMI, Normal appearance - Neck Exam Neck Exam: Normal Inspection. absent: Tenderness - Respiratory Exam Respiratory Exam: Rhonchi, Respiratory Distress - Cardiovascular Exam Cardiovascular Exam: Tachycardia, +S1 - GI/Abdominal Exam GI & Abdominal Exam: Soft. absent: Tenderness - Extremities Exam Extremities Exam: Normal Inspection - Neurological Exam Neurological Exam: Altered, CN II-XII Intact - Skin Skin Exam: Dry, Warm Assessment and Plan (1) Acute on chronic renal failure Status: Acute (2) CAD (coronary artery disease) Status: Chronic (3) CHF exacerbation Status: Chronic (4) Type 2 diabetes mellitus with diabetic nephropathy Status: Acute (5) CKD stage 4 due to type 2 diabetes mellitus Status: Acute (6) Cardiorenal disease Status: Acute (7) ESRD (end stage renal disease) Status: Acute - Assessment and Plan (Free Text) Plan: Increase clearances and UF rate with HD Will need placement for outpt dialysis
--- NOTE | 2017-09-05 14:44 | CP.PCM.PN ---
Subjective - Date & Time of Evaluation Date of Evaluation: 09/05/17 Time of Evaluation: 13:00 - Subjective Subjective: medical Attending Note: Patient seen at bedside. Patient receiving dialysis. Patient is awake, nonverbal. Family not present. Unable to ROS with clinical status secondary to clinical condition. Objective - Vital Signs/Intake and Output Vital Signs (last 24 hours): Temp Pulse Resp BP Pulse Ox 98.4 F 112 H 20 103/45 L 100 09/05/17 12:13 09/05/17 12:13 09/05/17 12:13 09/05/17 12:13 09/05/17 12:13 Intake and Output: 09/05/17 09/05/17 06:59 18:59 Intake Total 320 90 Output Total 0 0 Balance 320 90 - Medications Medications: Current Medications Albuterol/Ipratropium (Duoneb 3 Mg/0.5 Mg (3 Ml) Ud) 3 ml INH RQ6 [facility] Last Admin: 09/05/17 13:18 Dose: 3 ml Apixaban (Eliquis) 2.5 mg PO BID [facility] Last Admin: 09/05/17 10:01 Dose: Not Given Aspirin (Aspirin Chewable) 81 mg PO DAILY [facility] Last Admin: 09/05/17 10:01 Dose: Not Given Calcium Acetate (Phoslo) 2,001 mg GT TIDCC [facility] Last Admin: 09/05/17 12:40 Dose: Not Given Famotidine (Pepcid) 20 mg PO DAILY [facility] Last Admin: 09/05/17 10:01 Dose: Not Given Insulin Aspart (Novolog) 0 unit SC Q6 [facility] PRN Reason: Protocol Last Admin: 09/05/17 12:39 Dose: Not Given Insulin Detemir (Levemir) 43 unit SC Q12 [facility] Last Admin: 09/05/17 10:01 Dose: Not Given Lactobacillus Acidophilus (Bacid Acidophilus) 1 cap PO BID [facility] Last Admin: 09/05/17 10:01 Dose: Not Given Lisinopril (Zestril) 5 mg PO DAILY [facility] Last Admin: 09/05/17 10:01 Dose: Not Given Metoprolol Tartrate (Lopressor) 50 mg PO BID [facility] Last Admin: 09/05/17 10:01 Dose: Not Given Rosuvastatin Calcium (Crestor) 10 mg PO HS [facility] Last Admin: 08/26/17 22:41 Dose: 10 mg - Labs Labs: 09/05/17 06:09 09/05/17 06:10 PT 13.9 SECONDS (9.7-12.2) H 08/24/17 06:08 INR 1.2 08/24/17 06:08 APTT 55 SECONDS (21-34) H D 08/17/17 06:12 - Constitutional Appears: Chronically Ill - Head Exam Head Exam: NORMAL INSPECTION - Eye Exam Eye Exam: EOMI - Respiratory Exam Respiratory Exam: Decreased Breath Sounds, Rhonchi. absent: Wheezes, Respiratory Distress - Cardiovascular Exam Cardiovascular Exam: REGULAR RHYTHM, +S1, +S2 - GI/Abdominal Exam GI & Abdominal Exam: Soft, Normal Bowel Sounds. absent: Distended, Firm, Guarding, Rigid, Tenderness, Rebound - Extremities Exam Extremities Exam: absent: Pedal Edema, Tenderness - Neurological Exam Neurological Exam: Alert - Skin Skin Exam: Dry, Normal Color, Warm Assessment and Plan - Assessment and Plan (Free Text) Assessment: (1) Acute Respiratory Failure ARDS Cardiac Arrest Pulmonary Edema Nonstemi Assessment and Plan: * Code Blue on 08/10: asystole, cardiopulmonary resuscitative measures initiated , requiring 3 epis, bicarbonate, ROSC achieved and intubated and brought to the ICU for further management; Patient in the ICU from 08/10 until present. * Pulmonary: Dr Mena (Dr. Jeffers covering until 09/04/17)-->help appreciated * Cardiology: Dr. Cortés on board-->help appreciated * GI (Dr. Wills) on board-->help appreciated * S/P Tracheostomy 08/22 * S/P Peg tube placement 08/25 * s/p insertion of right posterior chest tube 08/19-->removed 08/24/17 * There was consideration for possible thoracentesis of left side pleural effusion, evaluated by IR, there is no fluid to drain per Dr. Gross * Chest xray (08/26): right arm PICC is seen with the tip of distal subclavian vein. PICC may be used * Per cardiology, * Restart Aspirin 81mg PO daily * Patient does not need Plavix at this time * Recommend for Eliquis 2.5mg PO BID for atrial flutter * 08/27: patient is pending LTAC, he went eventually need cardiac catheterization when he has stabilized. Held statin secondary to elevated LFTs. Discussed with Dr. Cortés, lowered Amiodarone 200mg PO daily * 08/28: patient is pending LTAC, he went eventually need cardiac catheterization when he has stabilized. Liver function tests improving * 08/29: Plastic Eye Technician Nehal has sent request to insurance for authorization for LTAC (2) Abnormal Stress Test History of AICD History of Coronary Artery Disease Assessment and Plan: * Cardiology (Dr. Cortés) on board-->help appreciated * TSH: 1.16; T4: 1.53 * Echocardiogram (08/08/17): left ventricle systolic function is severely impaired. EF: 25-30%; global hypokinesis of left ventricle mild aortic regurgitation. Mitral regurgitation is moderate. Moderate-severe pulmonary hypertension * Plan was for cardiac catheterization; delayed due to acute renal failure; Attempted gentle hydration and mucomyst on 08/09 to optimize prior to cath * On 08/10, patient was in asystole, ACLS protocol, ROSC achieved, intubated and transfered to the ICU. Patient in acute pulmonary edema. * Patient hospitalized in the ICU since 08/10/17 to present. * Medications: * Aspirin 81mg PO daily * Plavix d/c by cardiology * Lopressor 50mg PO bid * d/c Crestor 10mg POqHS secondary to rise in LFTS 08/27--->monitor LFTs daily * ARB d/c secondary to acute renal failure * 08/27: patient is pending LTAC, he went eventually need cardiac catheterization when he has stabilized. Held statin secondary to elevated LFTs. Discussed with Dr. Cortés, lowered Amiodarone 200mg PO daily * 08/28: patient is pending LTAC. He will eventually need cardiac catheterization when he has stabilized. Liver function tests improving. Statin is on hold (3) Atrial flutter Assessment and Plan: * Cardiology (Dr. Cortés) on board-->help appreciated * Refractory to Lopressor/Cardizem IVP * Eliquis 2.5mg PO bid * Amiodarone bolus-->Amiodarine drip on 08/24-->converted to Amiodarone 200mg PO TID on 08/26 and this was decreased to 200 mg 1x/day due to increased LFTs * 08/27: Discussed with Dr. Cortés, will lower Amiodarone 200mg PO daily and monitor LFTs. Statin held and tylenol d/c * 08/29: patient is pending LTAC, he will eventually need cardiac catheterization when he has stabilized. Liver function tests improving. Statin is on hold due to the elevated LFTs * 08/30: Cardiology discontinued the Amiodarone Status: Acute (4) Acute on Chronic Systolic CHF exacerbation Assessment and Plan: * Cardiology (Dr. Cortés) on board-->help appreciated * Transferred to the ICU on 08/10 following cardiac arrest and intubation. * Echocardiogram (08/08/17): left ventricular systolic function is severely impaired. EF: 25-30%; global hypokinesis of left ventricle mild aortic regurgitation. Mitral regurgitation is moderate. Moderate-severe pulmonary hypertension * Medications: * Aspirin 81mg PO daily * Plavix d/c by cardiology * Lopressor 50mg PO bid * d/c Crestor 10mg POqHS on 08/27 secondary to rise in LFTs * ARB d/c secondary to acute renal failure Status: Acute (5) Leukocytosis Assessment and Plan: * Patient's white count rising * Procalcitonin elevated * Pleural Fluid 08/19/17 did not show any growth * Blood cultures (08/26): no growth After 48hours X2 * UA and urine culture (08/27): Urine Culture showed Yeast Species. * Patient has elevated LFTs-->did not start anti-fungal in light of LFTs * Reculture Urine, Blood, and Stool should the WBC continue to trend up Status: Acute (6) Pneumonia Assessment and Plan: * Pulmonary (Dr. Mena) on board-->help appreciated; Dr. Jeffers covering while Dr. Mena away * Infectious Disease (Dr. Lawrence)-->help appreciated * Chest xray (08/26): right arm PICC is seen with the tip of distal subclavian vein. PICC may be used * Rapid A strep, Influenza A and B studies, Urine Legionella, Mycoplasma studies = Negative * Florastor 250mg PO bid * 08/07/17: +Strep Pneumoniae in the urine * Meropenem 500mg IV Q 8 hours (08/14/17 through 08/18/17) and Zosyn 2.25 mg IV Q6H (08/13/17 through 08/18/17) * Cefepime 1 gm IV Q24H: started on 08/19/17 and was discontinued by ID Dr. Dwyer on 08/30/17: monitor vitals and labs * s/p right posterior chest tube 08/19-08/24 * Sputum Culture 08/19/17 shows No growth * Pleural fluid 08/19/17: No growth Status: Acute (7) HTN (hypertension) Assessment and Plan: * Lopressor 50mg PO bid Status: Chronic (8) CKD (chronic kidney disease) on Dialysis Assessment and Plan: * Dr. Miranda (nephrology) consulted on the case * Hx of CKD-->Started on dialysis 08/15/17 * Kurtis catheter placed and removed 08/22 * s/p Right Chest Permcath 08/22 * Patient is on dialysis; oliguric * Phoslo 1334mg GT TID * Epoetin 10,000 unit IV MWF * 09/03: Hyponatremia noted and is trending back up Status: Acute (9) Diabetes mellitus Assessment and Plan: * Accuchecks Q6H * HgbA1c 8.4 * Started peg feedings on 08/26/17 * Nepro-->50 ml/hour (10) HLD (hyperlipidemia) Assessment and Plan: * 08/27: held Crestor 10 mg PO HS secondary to rise in LFTs * 08/29: Liver function tests improving; waiting to restart statin Status: Chronic (11) Anemia Assessment and Plan: * Heme-oncology (Dr. Giles bender) on board-->help appreciated * Likely iron deficiency anemia based on prior admissions * Ferritin 27.4, Iron 22, TIBC 322, % Saturation 7 * Ferric Sodium Gluconate 125mg IVPB daily (active 08/08-08/16) * Procrit 10,000 units M-W- * Monitor Hgb/Hct: stable Status: Chronic (12) History of DVT (deep vein thrombosis) Assessment and Plan: * Patient was previously on Eliquis for a prior history of DVT. * Repeat dopplers 08/09/17 are negative for DVT * Off Heparin Drip 08/17/17 * Started Eliquis 2.5mg PO BID for atrial flutter and history of DVT Status: Chronic (13) UTI Assessment and Plan: * Infectious disease (Dr. Lawrence) on board-->help appreciated * Exchange jaquez out and repeat urine cultures * Urine Culture 08/12/17 showed Gram Negative Rods: NO identification and NO sensitivities were performed * Meropenem 500mg IV Q 12hours (active since 08/14/17 through 08/18/17) to cover for UTI per ID * Repeat Urine Culture 08/18/17 shows NO growth * 08/25: reculture in light of leukocytosis * 08/27: pending urine studies * 08/30: Urine Culture 08/27/17 showed Yeast Species but no antifungal secondary to recent history of Elevated LFTs Status: Chronic (14) Confusion; Alzheimer's Dementia Assessment and Plan: * Per daughter, patient has been getting bouts of confusion over the past year but appears at baseline. Patient has not seen formal neurology as outpatient per daughter. Per , prior to event, noted Alzheimers' disease dx one year ago * CT head w/o contrast (08/10/17):acute os subacute lacune infarct is not excluded in the left basal ganglia inferiorly with definitive chronic lacune identified in the right basal ganglia superiorly. No acute or subacute lobar brain infarction is appreciable by standard CT criteria. Mild age-related neuro degenerative changes are identifed. 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 No changes to dimensions at this time. Also, pt favoring Left side of head and has developed a 1x1 serous filled blister on his left ear. Primary nurse placed duoderm on the ear. Wound care nurse left duoderm in place , and recommends leaving it on until it falls off on its own. Pt has been NPO for several days, new peg inserted yesterday. Will be starting glucerna tube feedings later today. Albumin 3.3 * Turn q 2 hours * medihoney on unstageable ulcer * duoderm on left ear aurical ulcer * 09/02/17: examined with Wound Care Nurse Emeka Samuel and periphery of the Sacral Wound is pink with some bleeding however center is still black and therefore still unstageable. Continue spray with Cavelon followed by thick coating with MediHoney followed by covering with OptiFoam once a day. * 09/03/17: Change of sacral ulcer dressing was performed by me with assitance from Nurse Esmer * 09/04/17: 09/03/17: Change of sacral ulcer dressing was performed by me with assistance from ALEXANDRA Unger Status: Acute (16) Elevated LFTs Assessment and Plan: * 08/27: Yina * Discussed with cardiology-->changed amiodarone 200mg PO tid to amiodaron 200mg PO daily * D/C tylenol * Held Statin * patient is also on Rocephin to cover for pneumonia * Will not start antifungal * 08/29: starting to down trending since change in amiodarone dose; awaiting to restart statin * 08/30: continues to trend down. Amiodarone was discontinued * 09/01: AST, ALT, Alk Phos still elevated but stable * 09/02: AST, ALT, Alk Phos still elevated but stable * 09/03: LFTs stable * 09/04: LFTs stable Status: Acute (17). Hx Constipation * Monitor bowel movement (18). Prophylactic measure Assessment and Plan: * Pepcid 20mg PO daily * Start Eliquis 2.5mg PO BID * s/p peg placement 08/25 * s/p trachesostomy 08/22 * s/p Permcath placement 08/22 removal Kurtis catheter * s/p right posterior chest tube 08/19-->removed 08/24 * s/p Right Arm PICC 08/26 * (Jovita Serrano): -->number provided to the nurse- ->consented for peg placement; discussed about LTAC 08/26 * I spoke with Dr. Pickard, MARIAJOSE regarding patient's hospitalization up until this point 08/2609/01/17: Dr. Cullen Barth spoke with the patient's [place] with the assistance of Nurse Campos on 3 tower (as multiple attempts of using [employer] indicated that all of the [place] translators were busy) and explained all of the patient's diagnosises. 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 Her ultimate wish is to take patient to [facility] where their children live. I explained to patient that I would not know how that would be coordinated but that the Social Workers/Nurse Aide Evaluator at LTAC may be of assistance in this regard. I also informed her that I am not aware of any insurance company that would finance this request. She understands that the patient is awaiting insurance approval for LTAC. 09/01/17 and 09/02/17: Dr. Cullen Barth spoke with Sales Agent Financial Report Service [employer] and we are still awaiting insurance authorization for LTAC placement. 09/05/17: Spoke with nehal, social worker masters, wean trials sent to LTAC pending approval no word yet regarding approval. Ordered for repeat cultures given uptrend in white count.
--- NOTE | 2017-09-05 15:28 | CP.PCM.PN ---
<Darryl Roe - Last Filed: 09/05/17 17:56> Subjective - Date & Time of Evaluation Date of Evaluation: 09/05/17 Time of Evaluation: 11:55 - Subjective Subjective: Cardiology Progress Note- Dr. Cortés's service Patient seen and examined in no acute distress. Patient does not follow commands when spoken to. He does move arms and look from side to side but not in specific response to one's direction or comments. Patient not able to respond to ROS at this time due to his clinical status. Objective - Vital Signs/Intake and Output Vital Signs (last 24 hours): Temp Pulse Resp BP Pulse Ox 98.4 F 103 H 33 H 119/47 L 38 L 09/05/17 12:13 09/05/17 15:00 09/05/17 15:00 09/05/17 14:58 09/05/17 15:00 Intake and Output: 09/05/17 09/05/17 06:59 18:59 Intake Total 320 90 Output Total 0 0 Balance 320 90 - Medications Medications: Current Medications Albuterol/Ipratropium (Duoneb 3 Mg/0.5 Mg (3 Ml) Ud) 3 ml INH RQ6 [facility] Last Admin: 09/05/17 13:18 Dose: 3 ml Apixaban (Eliquis) 2.5 mg PO BID [facility] Last Admin: 09/05/17 10:01 Dose: Not Given Aspirin (Aspirin Chewable) 81 mg PO DAILY [facility] Last Admin: 09/05/17 10:01 Dose: Not Given Calcium Acetate (Phoslo) 2,001 mg GT TIDCC [facility] Last Admin: 09/05/17 12:40 Dose: Not Given Famotidine (Pepcid) 20 mg PO DAILY [facility] Last Admin: 09/05/17 10:01 Dose: Not Given Insulin Aspart (Novolog) 0 unit SC Q6 [facility] PRN Reason: Protocol Last Admin: 09/05/17 12:39 Dose: Not Given Insulin Detemir (Levemir) 43 unit SC Q12 [facility] Last Admin: 09/05/17 10:01 Dose: Not Given Lactobacillus Acidophilus (Bacid Acidophilus) 1 cap PO BID [facility] Last Admin: 09/05/17 10:01 Dose: Not Given Lisinopril (Zestril) 5 mg PO DAILY [facility] Last Admin: 09/05/17 10:01 Dose: Not Given Metoprolol Tartrate (Lopressor) 50 mg PO BID [facility] Last Admin: 09/05/17 10:01 Dose: Not Given Rosuvastatin Calcium (Crestor) 10 mg PO HS [facility] Last Admin: 08/26/17 22:41 Dose: 10 mg - Labs Labs: 09/05/17 06:09 09/05/17 06:10 PT 13.9 SECONDS (9.7-12.2) H 08/24/17 06:08 INR 1.2 08/24/17 06:08 APTT 55 SECONDS (21-34) H D 08/17/17 06:12 - Constitutional Appears: Non-toxic, No Acute Distress - Head Exam Head Exam: ATRAUMATIC. absent: NORMAL INSPECTION - Eye Exam Eye Exam: EOMI Pupil Exam: NORMAL ACCOMODATION - ENT Exam ENT Exam: Mucous Membranes Moist - Neck Exam Neck Exam: Full ROM - Respiratory Exam Respiratory Exam: NORMAL BREATHING PATTERN. absent: Wheezes - Cardiovascular Exam Cardiovascular Exam: +S1, +S2 - GI/Abdominal Exam GI & Abdominal Exam: Soft - Extremities Exam Extremities Exam: Full ROM - Back Exam Back Exam: Full ROM - Neurological Exam Neurological Exam: Awake. absent: Alert - Psychiatric Exam Psychiatric exam: Flat Affect - Skin Skin Exam: Normal Color, Warm Assessment and Plan (1) Chest pain Status: Acute (2) CHF exacerbation Status: Chronic (3) Pneumonia Status: Acute (4) CAD (coronary artery disease) Status: Chronic (5) HTN (hypertension) Status: Chronic (6) CKD (chronic kidney disease) Status: Chronic (7) Diabetes mellitus Status: Chronic (8) HLD (hyperlipidemia) Status: Chronic (9) Constipation Status: Chronic (10) Anemia Status: Chronic (11) History of DVT (deep vein thrombosis) Status: Acute (12) Prophylactic measure Status: Acute - Assessment and Plan (Free Text) Assessment: Hx of Atrial Flutter Intermittent Likely due to Dobutamine administration which has since been discontinued Amiodarone discontinued; Will monitor to see that patient is rate controlled. On Metoprolol 50 mg PO BID, Eliquis 2.5 mg PO BID CAD, chest pain -No current plans for cardiac cath (acute respiratory failure and elevated Cr) , history of abnormal stress test -Elevated Troponin likely due to chest compressions during cardiac arrest 08/10 -No acute ST changes on EKG -Continue ASA, Crestor, Metoprolol. Plavix discontinued. -Echocardiogram from 08/08/17 showed left ventricle systolic function is severely impaired. EF: 25-30%; global hypokinesis of LV mild AR. MR is moderate. Moderate-severe pulmonary hypertension Systolic CHF exacerbation -BNP 06312 on 08/06/17 -Continue ASA, Crestor, Metoprolol -Echocardiogram from 08/08/17 showed left ventricle systolic function is severely impaired. EF: 25-30%; global hypokinesis of LV mild AR. MR is moderate. Moderate-severe pulmonary hypertesnion Dobutamine discontinued in light of atrial flutter-type episodes Diabetes Mellitus ISS Continue to monitor ESRD on HD Had HD today On Procrit and Phoslo Nephro on the case Prophylaxis Pepcid 20 mg PO daily Eliquis 2.5 mg PO BID (Renal precautions) Disposition Awaiting Transfer to LTAC Discussed with attending. All management and planning per Dr. Cortés <Sina Cortés - Last Filed: 09/05/17 21:33> Objective - Vital Signs/Intake and Output Vital Signs (last 24 hours): Temp Pulse Resp BP Pulse Ox 97.9 F 104 H 27 H 108/45 L 100 09/05/17 16:00 09/05/17 18:13 09/05/17 18:13 09/05/17 18:13 09/05/17 19:15 Intake and Output: 09/05/17 09/06/17 18:59 06:59 Intake Total 90 0 Output Total 0 0 Balance 90 0 - Medications Medications: Current Medications Albuterol/Ipratropium (Duoneb 3 Mg/0.5 Mg (3 Ml) Ud) 3 ml INH RQ6 [facility] Last Admin: 09/05/17 19:47 Dose: 3 ml Apixaban (Eliquis) 2.5 mg PO BID [facility] Last Admin: 09/05/17 17:49 Dose: 2.5 mg Aspirin (Aspirin Chewable) 81 mg PO DAILY [facility] Last Admin: 09/05/17 10:01 Dose: Not Given Calcium Acetate (Phoslo) 2,001 mg GT TIDCC [facility] Last Admin: 09/05/17 17:49 Dose: 2,001 mg Famotidine (Pepcid) 20 mg PO DAILY [facility] Last Admin: 10/09/17 10:01 Dose: Not Given Insulin Aspart (Novolog) 0 unit SC Q6 [facility] PRN Reason: Protocol Last Admin: 09/05/17 17:48 Dose: 3 unit Insulin Detemir (Levemir) 43 unit SC Q12 [facility] Last Admin: 09/05/17 10:01 Dose: Not Given Lactobacillus Acidophilus (Bacid Acidophilus) 1 cap PO BID [facility] Last Admin: 09/05/17 17:51 Dose: 1 cap Lisinopril (Zestril) 5 mg PO DAILY [facility] Last Admin: 09/05/17 10:01 Dose: Not Given Metoprolol Tartrate (Lopressor) 50 mg PO BID [facility] Last Admin: 09/05/17 17:49 Dose: 50 mg Rosuvastatin Calcium (Crestor) 10 mg PO HS [facility] Last Admin: 08/26/17 22:41 Dose: 10 mg - Labs Labs: 09/05/17 06:09 09/05/17 06:10 PT 13.9 SECONDS (9.7-12.2) H 08/24/17 06:08 INR 1.2 08/24/17 06:08 APTT 55 SECONDS (21-34) H D 08/17/17 06:12 Assessment and Plan - Assessment and Plan (Free Text) Assessment: Patient seen and evaluated with the medical screener Plan of care as documented
[2017-09-06] MEDS: (Novolog) Insulin Aspart, Recombinant 100 u/ml 10 ml vial SC SCH ×4 (00:55→18:26)
[2017-09-06] MEDS: Albuterol-Ipratrop 3 mg / 0.5 (3 ml) UD INH SCH ×4 (01:34→19:31)
[2017-09-06 06:04] LABS: BASO # 0.1 K/uL (0.0-0.2); BASO % 0.8 % (0.0-2.0); EOS # 0.4 K/uL (0.0-0.7); EOS % 3.2 % (0.0-4.0); HEMATOCRIT 28.7 % (35.0-51.0); LYMPH # 1.8 K/uL (1.0-4.3); LYMPH % 13.7 % (20.0-40.0); MEAN CELL VOLUME 75.3 fL (80.0-94.0); MEAN CORPUSCULAR HEMOGLOBIN 24.3 pg (27.0-31.0); MEAN CORPUSCULAR HGB CONC 32.3 g/dL (33.0-37.0); MEAN PLATELET VOLUME 7.8 fL (7.2-11.7); MONO % 7.5 % (0.0-10.0); RED CELL DISTRIBUTION WIDTH 23.4 % (11.5-14.5); WHITE BLOOD COUNT 12.9 K/uL (4.8-10.8)
[2017-09-06 06:11] LABS: POTASSIUM 4.3 mmol/L (3.6-5.2)
[2017-09-06 06:13] LABS: ALB/GLOB RATIO 0.7 (1.0-2.1); BILIRUBIN,TOTAL 0.6 mg/dL (0.2-1.3); TOTAL PROTEIN 7.6 g/dL (6.3-8.3)
[2017-09-06 06:14] LABS: CALCIUM 9.3 mg/dl (8.6-10.4); MAGNESIUM 2.6 mg/dL (1.6-2.3)
[2017-09-06] MEDS ORDERED: Acetylcysteine 20% Inhal Soln (4ml) INH SCH (06:15)
[2017-09-06] MEDS: Lactobacillus Acidophilus 500 MU Cap PO SCH ×2 (10:06→17:32)
[2017-09-06] MEDS: Insulin Detemir 100 units/ml Vial (Levemir) SC SCH ×2 (10:07→23:08)
--- NOTE | 2017-09-06 12:36 | CP.PCM.PN ---
Subjective - Date & Time of Evaluation Date of Evaluation: 09/06/17 Time of Evaluation: 12:35 - Subjective Subjective: seen and examined hd yesterday, unremarkable non verbal. ROS could not be obtained Objective - Vital Signs/Intake and Output Vital Signs (last 24 hours): Temp Pulse Resp BP Pulse Ox 97.9 F 114 H 14 124/49 L 95 09/06/17 08:00 09/06/17 09:28 09/06/17 09:28 09/06/17 09:28 09/06/17 09:28 Intake and Output: 09/06/17 09/06/17 06:59 18:59 Intake Total 100 160 Output Total 0 Balance 100 160 - Medications Medications: Current Medications Acetylcysteine (Acetylcysteine 20%) 4 ml INH RQ6 [facility] Albuterol/Ipratropium (Duoneb 3 Mg/0.5 Mg (3 Ml) Ud) 3 ml INH RQ6 [facility] Last Admin: 09/06/17 07:53 Dose: 3 ml Apixaban (Eliquis) 2.5 mg PO BID [facility] Last Admin: 09/06/17 10:07 Dose: 2.5 mg Aspirin (Aspirin Chewable) 81 mg PO DAILY [facility] Last Admin: 09/06/17 10:07 Dose: 81 mg Calcium Acetate (Phoslo) 2,001 mg GT TIDCC [facility] Last Admin: 09/06/17 10:06 Dose: 2,001 mg Famotidine (Pepcid) 20 mg PO DAILY [facility] Last Admin: 09/06/17 10:07 Dose: 20 mg Insulin Aspart (Novolog) 0 unit SC Q6 [facility] PRN Reason: Protocol Last Admin: 09/06/17 06:10 Dose: 2 unit Insulin Detemir (Levemir) 43 unit SC Q12 [facility] Last Admin: 09/06/17 10:07 Dose: 43 unit Lactobacillus Acidophilus (Bacid Acidophilus) 1 cap PO BID [facility] Last Admin: 09/06/17 10:06 Dose: 1 cap Lisinopril (Zestril) 5 mg PO DAILY [facility] Last Admin: 09/06/17 10:07 Dose: 5 mg Metoprolol Tartrate (Lopressor) 50 mg PO BID [facility] Last Admin: 09/06/17 10:06 Dose: 50 mg Rosuvastatin Calcium (Crestor) 10 mg PO HS [facility] Last Admin: 08/26/17 22:41 Dose: 10 mg - Labs Labs: 09/06/17 05:51 09/06/17 05:51 PT 13.9 SECONDS (9.7-12.2) H 08/24/17 06:08 INR 1.2 08/24/17 06:08 APTT 55 SECONDS (21-34) H D 08/17/17 06:12 - Constitutional Appears: Non-toxic, No Acute Distress, Chronically Ill - Head Exam Head Exam: NORMAL INSPECTION - Eye Exam Eye Exam: Normal appearance - ENT Exam ENT Exam: Mucous Membranes Dry Additional comments: trach - vent - Neck Exam Neck Exam: Normal Inspection - Respiratory Exam Respiratory Exam: Decreased Breath Sounds - Cardiovascular Exam Cardiovascular Exam: REGULAR RHYTHM, RRR - GI/Abdominal Exam GI & Abdominal Exam: Distended (peg in place), Soft - Extremities Exam Extremities Exam: Normal Inspection Assessment and Plan (1) Acute on chronic renal failure Status: Acute (2) CHF (congestive heart failure) Status: Acute (3) History of DVT (deep vein thrombosis) Status: Acute (4) CAD (coronary artery disease) Status: Chronic (5) CKD (chronic kidney disease) Status: Chronic - Assessment and Plan (Free Text) Assessment: maintain hd tts LTAC placement
[2017-09-06] MEDS: Acetylcysteine 20% Inhal Soln (4ml) INH SCH ×2 (14:25→19:31)
--- NOTE | 2017-09-06 15:15 | CP.PCM.PN ---
Subjective - Date & Time of Evaluation Date of Evaluation: 09/06/17 Time of Evaluation: 15:15 - Subjective Subjective: Medical Attending Note: Patient seen, examined, with present. Patient sitting upright in chair. Patient is awake but nonverbal. Unable to review ROS secondary to clinical condition. Objective - Vital Signs/Intake and Output Vital Signs (last 24 hours): Temp Pulse Resp BP Pulse Ox 98.1 F 78 11 L 120/50 L 94 L 09/06/17 12:00 09/06/17 12:16 09/06/17 12:16 09/06/17 12:16 09/06/17 12:16 Intake and Output: 09/06/17 09/06/17 06:59 18:59 Intake Total 100 370 Output Total 0 Balance 100 370 - Medications Medications: Current Medications Acetylcysteine (Acetylcysteine 20%) 4 ml INH RQ6 [facility] Last Admin: 09/06/17 14:25 Dose: 4 ml Albuterol/Ipratropium (Duoneb 3 Mg/0.5 Mg (3 Ml) Ud) 3 ml INH RQ6 [facility] Last Admin: 09/06/17 14:24 Dose: 3 ml Alteplase, Recombinant (Cathflo 2 Mg Inj) 2 mg IV ONCE ONE Stop: 09/06/17 15:13 Apixaban (Eliquis) 2.5 mg PO BID [facility] Last Admin: 09/06/17 10:07 Dose: 2.5 mg Aspirin (Aspirin Chewable) 81 mg PO DAILY [facility] Last Admin: 09/06/17 10:07 Dose: 81 mg Calcium Acetate (Phoslo) 2,001 mg GT TIDCC [facility] Last Admin: 09/06/17 12:55 Dose: 2,001 mg Famotidine (Pepcid) 20 mg PO DAILY [facility] Last Admin: 09/06/17 10:07 Dose: 20 mg Insulin Aspart (Novolog) 0 unit SC Q6 [facility] PRN Reason: Protocol Last Admin: 09/06/17 12:55 Dose: 1 unit Insulin Detemir (Levemir) 43 unit SC Q12 [facility] Last Admin: 09/06/17 10:07 Dose: 43 unit Lactobacillus Acidophilus (Bacid Acidophilus) 1 cap PO BID [facility] Last Admin: 09/06/17 10:06 Dose: 1 cap Lisinopril (Zestril) 5 mg PO DAILY [facility] Last Admin: 09/06/17 10:07 Dose: 5 mg Metoprolol Tartrate (Lopressor) 50 mg PO BID [facility] Last Admin: 09/06/17 10:06 Dose: 50 mg Rosuvastatin Calcium (Crestor) 10 mg PO HS [facility] Last Admin: 08/26/17 22:41 Dose: 10 mg - Labs Labs: 09/06/17 05:51 09/06/17 05:51 PT 13.9 SECONDS (9.7-12.2) H 08/24/17 06:08 INR 1.2 08/24/17 06:08 APTT 55 SECONDS (21-34) H D 08/17/17 06:12 - Constitutional Appears: Non-toxic, No Acute Distress, Chronically Ill - Head Exam Head Exam: NORMAL INSPECTION - Eye Exam Eye Exam: EOMI - ENT Exam ENT Exam: Mucous Membranes Moist - Respiratory Exam Respiratory Exam: Decreased Breath Sounds, Rhonchi, NORMAL BREATHING PATTERN. absent: Respiratory Distress, Stridor Additional comments: s/p trach: c/d/i - Cardiovascular Exam Cardiovascular Exam: REGULAR RHYTHM, +S1, +S2 - GI/Abdominal Exam GI & Abdominal Exam: Soft, Normal Bowel Sounds. absent: Distended, Firm, Guarding, Rigid, Tenderness, Rebound - Extremities Exam Extremities Exam: Normal Capillary Refill. absent: Pedal Edema, Tenderness Additional comments: decreased muscle atrophy bilateral - Neurological Exam Neurological Exam: Alert, Awake - Psychiatric Exam Psychiatric exam: Normal Affect, Normal Mood - Skin Skin Exam: Dry, Intact, Normal Color, Warm Assessment and Plan - Assessment and Plan (Free Text) Assessment: (1) Acute Respiratory Failure ARDS Cardiac Arrest Pulmonary Edema Nonstemi Assessment and Plan: * Code Blue on 08/10: asystole, cardiopulmonary resuscitative measures initiated , requiring 3 epis, bicarbonate, ROSC achieved and intubated and brought to the ICU for further management; Patient in the ICU from 08/10 until present. * Pulmonary: Dr Mena (Dr. Jeffers covering until 09/04/17)-->help appreciated * Cardiology: Dr. Cortés on board-->help appreciated * GI (Dr. Wills) on board-->help appreciated * S/P Tracheostomy 08/22 * S/P Peg tube placement 08/25 * s/p insertion of right posterior chest tube 08/19-->removed 08/24/17 * There was consideration for possible thoracentesis of left side pleural effusion, evaluated by IR, there is no fluid to drain per Dr. Gross * Chest xray (08/26): right arm PICC is seen with the tip of distal subclavian vein. PICC may be used * Per cardiology, * Restart Aspirin 81mg PO daily * Patient does not need Plavix at this time * Recommend for Eliquis 2.5mg PO BID for atrial flutter * 08/27: patient is pending LTAC, he went eventually need cardiac catheterization when he has stabilized. Held statin secondary to elevated LFTs. Discussed with Dr. Cortés, lowered Amiodarone 200mg PO daily * 08/28: patient is pending LTAC, he went eventually need cardiac catheterization when he has stabilized. Liver function tests improving * 08/29: Planing Machine Operator Nehal has sent request to insurance for authorization for LTAC-->pending * 09/06: pending social work/case management approval for LTAC (2) Abnormal Stress Test History of AICD History of Coronary Artery Disease Assessment and Plan: * Cardiology (Dr. Cortés) on board-->help appreciated * TSH: 1.16; T4: 1.53 * Echocardiogram (08/08/17): left ventricle systolic function is severely impaired. EF: 25-30%; global hypokinesis of left ventricle mild aortic regurgitation. Mitral regurgitation is moderate. Moderate-severe pulmonary hypertension * Plan was for cardiac catheterization; delayed due to acute renal failure; Attempted gentle hydration and mucomyst on 08/09 to optimize prior to cath * On 08/10, patient was in asystole, ACLS protocol, ROSC achieved, intubated and transfered to the ICU. Patient in acute pulmonary edema. * Patient hospitalized in the ICU since 08/10/17 to present. * Medications: * Aspirin 81mg PO daily * Plavix d/c by cardiology * Lopressor 50mg PO bid * d/c Crestor 10mg POqHS secondary to rise in LFTS 08/27--->monitor LFTs daily * ARB d/c secondary to acute renal failure * 08/27: patient is pending LTAC, he went eventually need cardiac catheterization when he has stabilized. Held statin secondary to elevated LFTs. Discussed with Dr. Cortés, lowered Amiodarone 200mg PO daily * 08/28: patient is pending LTAC. He will eventually need cardiac catheterization when he has stabilized. Liver function tests improving. Statin is on hold (3) Atrial flutter Assessment and Plan: * Cardiology (Dr. Cortés) on board-->help appreciated * Refractory to Lopressor/Cardizem IVP * Eliquis 2.5mg PO bid * Amiodarone bolus-->Amiodarine drip on 08/24-->converted to Amiodarone 200mg PO TID on 08/26 and this was decreased to 200 mg 1x/day due to increased LFTs * 08/27: Discussed with Dr. Cortés, will lower Amiodarone 200mg PO daily and monitor LFTs. Statin held and tylenol d/c * 08/29: patient is pending LTAC, he will eventually need cardiac catheterization when he has stabilized. Liver function tests improving. Statin is on hold due to the elevated LFTs * 08/30: Cardiology discontinued the Amiodarone Status: Acute (4) Acute on Chronic Systolic CHF exacerbation Assessment and Plan: * Cardiology (Dr. Cortés) on board-->help appreciated * Transferred to the ICU on 08/10 following cardiac arrest and intubation. * Echocardiogram (08/08/17): left ventricular systolic function is severely impaired. EF: 25-30%; global hypokinesis of left ventricle mild aortic regurgitation. Mitral regurgitation is moderate. Moderate-severe pulmonary hypertension * Medications: * Aspirin 81mg PO daily * Plavix d/c by cardiology * Lopressor 50mg PO bid * d/c Crestor 10mg POqHS on 08/27 secondary to rise in LFTs * ARB d/c secondary to acute renal failure Status: Acute (5) Leukocytosis Assessment and Plan: * Patient's white count mildly rising * Pleural Fluid 08/19/17 did not show any growth * Blood cultures (08/26): no growth After 48hours X2 * UA and urine culture (08/27): Urine Culture showed Yeast Species. * Patient has elevated LFTs-->did not start anti-fungal in light of LFTs * Reculture Urine, Blood, and Stool should the WBC continue to trend up * 09/06: stool culture pending; has not had diarrhea or bowel movement Status: Acute (6) Pneumonia Assessment and Plan: * Pulmonary (Dr. Mena) on board-->help appreciated; Dr. Jeffers covering while Dr. Mena away * Infectious Disease (Dr. Lawrence)-->help appreciated * Chest xray (08/26): right arm PICC is seen with the tip of distal subclavian vein. PICC may be used * Rapid A strep, Influenza A and B studies, Urine Legionella, Mycoplasma studies = Negative * Florastor 250mg PO bid * 08/07/17: +Strep Pneumoniae in the urine * Meropenem 500mg IV Q 8 hours (08/14/17 through 08/18/17) and Zosyn 2.25 mg IV Q6H (08/13/17 through 08/18/17) * Cefepime 1 gm IV Q24H: started on 08/19/17 and was discontinued by ID Dr. Lawrence on 08/30/17: monitor vitals and labs * s/p right posterior chest tube 08/19-08/24 * Sputum Culture 08/19/17 shows No growth * Pleural fluid 08/19/17: No growth Status: Acute (7) HTN (hypertension) Assessment and Plan: * Lopressor 50mg PO bid Status: Chronic (8) CKD (chronic kidney disease) on Dialysis Assessment and Plan: * Dr. Miranda (nephrology) consulted on the case * Hx of CKD-->Started on dialysis 08/15/17 * Kurtis catheter placed and removed 08/22 * s/p Right Chest Permcath 08/22 * Patient is on dialysis; oliguric * Phoslo 1334mg GT TID * Epoetin 10,000 unit IV MWF * 09/03: Hyponatremia noted and is trending back up Status: Acute (9) Diabetes mellitus Assessment and Plan: * Accuchecks Q6H * HgbA1c 8.4 * Started peg feedings on 08/26/17 * Nepro-->50 ml/hour (10) HLD (hyperlipidemia) Assessment and Plan: * 08/27: held Crestor 10 mg PO HS secondary to rise in LFTs * 08/29: Liver function tests improving; waiting to restart statin Status: Chronic (11) Anemia Assessment and Plan: * Heme-oncology (Dr. Giles bender) on board-->help appreciated * Likely iron deficiency anemia based on prior admissions * Ferritin 27.4, Iron 22, TIBC 322, % Saturation 7 * Ferric Sodium Gluconate 125mg IVPB daily (active 08/08-08/16) * Procrit 10,000 units M-W-F * Monitor Hgb/Hct: stable Status: Chronic (12) History of DVT (deep vein thrombosis) Assessment and Plan: * Patient was previously on Eliquis for a prior history of DVT. * Repeat dopplers 08/09/17 are negative for DVT * Off Heparin Drip 08/17/17 * Started Eliquis 2.5mg PO BID for atrial flutter and history of DVT Status: Chronic (13) UTI Assessment and Plan: * Infectious disease (Dr. Lawrence) on board-->help appreciated * Exchange jaquez out and repeat urine cultures * Urine Culture 08/12/17 showed Gram Negative Rods: NO identification and NO sensitivities were performed * Meropenem 500mg IV Q 12hours (active since 08/14/17 through 08/18/17) to cover for UTI per ID * Repeat Urine Culture 08/18/17 shows NO growth * 08/25: reculture in light of leukocytosis * 08/27: pending urine studies * 08/30: Urine Culture 08/27/17 showed Yeast Species but no antifungal secondary to recent history of Elevated LFTs Status: Chronic (14) Confusion; Alzheimer's Dementia Assessment and Plan: * Per daughter, patient has been getting bouts of confusion over the past year but appears at baseline. Patient has not seen formal neurology as outpatient per daughter. Per , prior to event, noted Alzheimers' disease dx one year ago * CT head w/o contrast (08/10/17):acute os subacute lacune infarct is not excluded in the left basal ganglia inferiorly with definitive chronic lacune identified in the right basal ganglia superiorly. No acute or subacute lobar brain infarction is appreciable by standard CT criteria. Mild age-related neuro degenerative changes are identifed. 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 No changes to dimensions at this time. Also, pt favoring Left side of head and has developed a 1x1 serous filled blister on his left ear. Primary nurse placed duoderm on the ear. Wound care nurse left duoderm in place , and recommends leaving it on until it falls off on its own. Pt has been NPO for several days, new peg inserted yesterday. Will be starting glucerna tube feedings later today. Albumin 3.3 * Turn q 2 hours * medihoney on unstageable ulcer * duoderm on left ear aurical ulcer * 09/02/17: examined with Wound Care Nurse Emeka Samuel and periphery of the Sacral Wound is pink with some bleeding however center is still black and therefore still unstageable. Continue spray with Cavelon followed by thick coating with MediHoney followed by covering with OptiFoam once a day. * 09/03/17: Change of sacral ulcer dressing was performed by me with assitance from Nurse Lyman * 09/04/17: 09/03/17: Change of sacral ulcer dressing was performed by me with assistance from ALEXANDRA Unger Status: Acute (16) Elevated LFTs Assessment and Plan: * 08/27: Yina * Discussed with cardiology-->changed amiodarone 200mg PO tid to amiodaron 200mg PO daily * D/C tylenol * Held Statin * patient is also on Rocephin to cover for pneumonia * Will not start antifungal * 08/29: starting to down trending since change in amiodarone dose; awaiting to restart statin * 08/30: continues to trend down. Amiodarone was discontinued * 09/01: AST, ALT, Alk Phos still elevated but stable * 09/02: AST, ALT, Alk Phos still elevated but stable * 09/03: LFTs stable * 09/04: LFTs stable Status: Acute (17). Hx Constipation * Monitor bowel movement (18). Prophylactic measure Assessment and Plan: * Pepcid 20mg PO daily * Start Eliquis 2.5mg PO BID * s/p peg placement 08/25 * s/p trachesostomy 08/22 * s/p Permcath placement 08/22 removal Kurtis catheter * s/p right posterior chest tube 08/19-->removed 08/24 * s/p Right Arm PICC 08/26 * (Jovita Serrano): -->number provided to the nurse- ->consented for peg placement; discussed about LTAC 08/26 * I spoke with Dr. Pickard, MARIAJOSE regarding patient's hospitalization up until this point 08/2609/01/17: Dr. Cullen Barth spoke with the patient's [place] with the assistance of Nurse Campos on 3 tower (as multiple attempts of using [facility] indicated that all of the [place] translators were busy) and explained all of the patient's diagnosises. 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 Her ultimate wish is to take patient to [facility] where their children live. I explained to patient that I would not know how that would be coordinated but that the Social Workers/Museum Guide at LTAC may be of assistance in this regard. I also informed her that I am not aware of any insurance company that would finance this request. She understands that the patient is awaiting insurance approval for LTAC. 09/01/17 and 09/02/17: Dr. Cullen Barth spoke with Steward/Stewardess Tourist Class Demetria and we are still awaiting insurance authorization for LTAC placement. 09/05/17: Spoke with nehal, social service technician, wean trials sent to LTAC pending approval no word yet regarding approval. Ordered for repeat cultures given uptrend in white count. 09/06/17: pending repeat cultures in light of elevated procalcitonin; ID recommended to reculture. Note: patients PICC lined had clogged ports. Red port remains clogged in spite of cath rafaela. Blue port improved after cath rafaela. Possible may need to remove line to r/o infected line. Strong suspicion due to patient's pneumonia given he has thick secretions.
--- NOTE | 2017-09-06 22:43 | CP.PCM.PN ---
Subjective - Date & Time of Evaluation Date of Evaluation: 09/06/17 Time of Evaluation: 08:40 - Subjective Subjective: Patient seen and evaluated Denies chest pain and dyspnea Comfortable Physical Examination - Constitutional Appears: Non-toxic, No Acute Distress - Head Exam Head Exam: ATRAUMATIC - Eye Exam Eye Exam: EOMI - Neck Exam Neck Exam: Full ROM - Cardiovascular Exam Cardiovascular Exam: Irregular Rhythm, +S1, +S2 - GI/Abdominal Exam GI & Abdominal Exam: Soft, Normal Bowel Sounds - Extremities Exam Extremities Exam: Full ROM - Neurological Exam Neurological Exam: Altered - Psychiatric Exam Psychiatric exam: Flat Affect - Skin Skin Exam: Dry, Warm Objective - Vital Signs/Intake and Output Vital Signs (last 24 hours): Temp Pulse Resp BP Pulse Ox 98.2 F 90 25 H 126/42 L 90 L 09/06/17 20:00 09/06/17 20:21 09/06/17 20:21 09/06/17 20:21 09/06/17 20:21 Intake and Output: 09/06/17 09/07/17 18:59 06:59 Intake Total 770 160 Balance 770 160 - Medications Medications: Current Medications Acetylcysteine (Acetylcysteine 20%) 4 ml INH RQ6 [facility] Last Admin: 09/06/17 19:31 Dose: 4 ml Albuterol/Ipratropium (Duoneb 3 Mg/0.5 Mg (3 Ml) Ud) 3 ml INH RQ6 [facility] Last Admin: 09/06/17 19:31 Dose: 3 ml Apixaban (Eliquis) 2.5 mg PO BID [facility] Last Admin: 09/06/17 10:07 Dose: 2.5 mg Aspirin (Aspirin Chewable) 81 mg PO DAILY [facility] Last Admin: 09/06/17 10:07 Dose: 81 mg Calcium Acetate (Phoslo) 2,001 mg GT TIDCC [facility] Last Admin: 09/06/17 17:31 Dose: 2,001 mg Famotidine (Pepcid) 20 mg PO DAILY [facility] Last Admin: 09/06/17 10:07 Dose: 20 mg Insulin Aspart (Novolog) 0 unit SC Q6 [facility] PRN Reason: Protocol Last Admin: 09/06/17 18:26 Dose: 1 unit Insulin Detemir (Levemir) 43 unit SC Q12 [facility] Last Admin: 09/06/17 10:07 Dose: 43 unit Lactobacillus Acidophilus (Bacid Acidophilus) 1 cap PO BID [facility] Last Admin: 09/06/17 17:32 Dose: 1 cap Lisinopril (Zestril) 5 mg PO DAILY [facility] Last Admin: 09/06/17 10:07 Dose: 5 mg Metoprolol Tartrate (Lopressor) 50 mg PO BID [facility] Last Admin: 09/06/17 17:32 Dose: 50 mg Rosuvastatin Calcium (Crestor) 10 mg PO HS [facility] Last Admin: 08/26/17 22:41 Dose: 10 mg - Labs Labs: 09/06/17 05:51 09/06/17 05:51 PT 13.9 SECONDS (9.7-12.2) H 08/24/17 06:08 INR 1.2 08/24/17 06:08 APTT 55 SECONDS (21-34) H D 08/17/17 06:12 Assessment and Plan - Assessment and Plan (Free Text) Assessment: SIRS Hypotensive event with tachycardia yesterday Considerations for sacral wound. Concepcion cultures- Wound cultures grew out Vancomycin Resistant Enteroccoci, Urine cuture- yeast species Has undergone wound debridement per Surgery Atrial Fibrillation Intermittent Rate controlled. On Metoprolol 50 mg PO BID, Eliquis 2.5 mg PO BID CAD, chest pain -No current plans for cardiac cath (acute respiratory failure and elevated Cr) , history of abnormal stress test -Elevated Troponin likely due to chest compressions during cardiac arrest 08/10 -No acute ST changes on EKG -Continue ASA, Crestor, Metoprolol. -Echocardiogram from 08/08/17 showed left ventricle systolic function is severely impaired. EF: 25-30%; global hypokinesis of LV mild AR. MR is moderate. Moderate-severe pulmonary hypertension Systolic CHF exacerbation -CXR 09/09: Diminished bilateral basilar airspace disease; stable cardiomegaly -BNP [id number] on 08/06/17 -Continue ASA, Crestor, Metoprolol -Echocardiogram from 08/08/17 showed left ventricle systolic function is severely impaired. EF: 25-30%; global hypokinesis of LV mild AR. MR is moderate. Moderate-severe pulmonary hypertesnion Dobutamine discontinued in light of atrial flutter-type episodes Diabetes Mellitus ISS Continue to monitor ESRD on HD Currently on HD On Procrit and Phoslo Nephro on the case Prophylaxis Pepcid 20 mg PO daily Eliquis 2.5 mg PO BID (Renal precautions) Disposition Awaiting Transfer to LTAC
[2017-09-07] MEDS: Acetylcysteine 20% Inhal Soln (4ml) INH SCH ×4 (02:00→19:09)
[2017-09-07] MEDS: Albuterol-Ipratrop 3 mg / 0.5 (3 ml) UD INH SCH ×4 (02:00→19:10)
[2017-09-07] MEDS: (Novolog) Insulin Aspart, Recombinant 100 u/ml 10 ml vial SC SCH ×4 (06:20→18:29)
[2017-09-07 06:34] LABS: WHITE BLOOD COUNT 14.6 K/uL (4.8-10.8)
[2017-09-07 06:35] LABS: BASO # 0.1 K/uL (0.0-0.2); BASO % 0.9 % (0.0-2.0); EOS # 0.5 K/uL (0.0-0.7); EOS % 3.4 % (0.0-4.0); LYMPH # 1.7 K/uL (1.0-4.3); LYMPH % 11.6 % (20.0-40.0); MEAN CELL VOLUME 75.5 fL (80.0-94.0); MEAN CORPUSCULAR HGB CONC 31.8 g/dL (33.0-37.0); MONO # 1.1 K/uL (0.0-0.8); MONO % 7.4 % (0.0-10.0); RED CELL DISTRIBUTION WIDTH 23.3 % (11.5-14.5)
[2017-09-07 06:47] LABS: POTASSIUM 4.3 mmol/L (3.6-5.2)
[2017-09-07 06:50] LABS: ALB/GLOB RATIO 0.6 (1.0-2.1); BILIRUBIN,TOTAL 0.5 mg/dL (0.2-1.3)
[2017-09-07] MEDS: Lactobacillus Acidophilus 500 MU Cap PO SCH ×2 (10:24→18:49)
[2017-09-07] MEDS: Insulin Detemir 100 units/ml Vial (Levemir) SC SCH ×2 (10:26→21:51)
--- NOTE | 2017-09-07 13:47 | CP.PCM.PN ---
<Darryl Roe - Last Filed: 09/07/17 13:43> Subjective - Date & Time of Evaluation Date of Evaluation: 09/07/17 Time of Evaluation: 09:17 - Subjective Subjective: Cardiology Progress Note- Dr. Cortés's service Patient seen and examined in no acute distress. Patient moves arms and looks from side to side in a spontaneous manner. Patient not able to respond to ROS at this time due to his clinical status. Objective - Vital Signs/Intake and Output Vital Signs (last 24 hours): Temp Pulse Resp BP Pulse Ox 97 F L 85 18 116/44 L 98 09/07/17 08:00 09/07/17 12:00 09/07/17 12:00 09/07/17 10:34 09/07/17 12:00 Intake and Output: 09/07/17 09/07/17 06:59 18:59 Intake Total 480 390 Balance 480 390 - Medications Medications: Current Medications Acetylcysteine (Acetylcysteine 20%) 4 ml INH RQ6 [facility] Last Admin: 09/07/17 13:33 Dose: 4 ml Albuterol/Ipratropium (Duoneb 3 Mg/0.5 Mg (3 Ml) Ud) 3 ml INH RQ6 [facility] Last Admin: 09/07/17 13:33 Dose: 3 ml Apixaban (Eliquis) 2.5 mg PO BID [facility] Last Admin: 09/06/17 10:07 Dose: 2.5 mg Aspirin (Aspirin Chewable) 81 mg PO DAILY [facility] Last Admin: 09/07/17 10:24 Dose: 81 mg Calcium Acetate (Phoslo) 2,001 mg GT TIDCC [facility] Last Admin: 09/07/17 12:27 Dose: 2,001 mg Famotidine (Pepcid) 20 mg PO DAILY [facility] Last Admin: 09/07/17 10:24 Dose: 20 mg Insulin Aspart (Novolog) 0 unit SC Q6 [facility] PRN Reason: Protocol Last Admin: 09/07/17 12:27 Dose: 2 unit Insulin Detemir (Levemir) 43 unit SC Q12 [facility] Last Admin: 09/07/17 10:26 Dose: 43 unit Lactobacillus Acidophilus (Bacid Acidophilus) 1 cap PO BID [facility] Last Admin: 09/07/17 10:24 Dose: 1 cap Lisinopril (Zestril) 5 mg PO DAILY [facility] Last Admin: 09/07/17 10:24 Dose: 5 mg Metoprolol Tartrate (Lopressor) 50 mg PO BID [facility] Last Admin: 09/07/17 10:24 Dose: 50 mg Rosuvastatin Calcium (Crestor) 10 mg PO HS [facility] Last Admin: 08/26/17 22:41 Dose: 10 mg - Labs Labs: 09/07/17 06:15 09/07/17 06:19 PT 13.9 SECONDS (9.7-12.2) H 08/24/17 06:08 INR 1.2 08/24/17 06:08 APTT 55 SECONDS (21-34) H D 08/17/17 06:12 - Constitutional Appears: Non-toxic, No Acute Distress - Head Exam Head Exam: ATRAUMATIC, NORMAL INSPECTION - Eye Exam Eye Exam: EOMI, PERRL - ENT Exam ENT Exam: Mucous Membranes Moist Additional comments: trach in place with minimal secretions - Neck Exam Neck Exam: Full ROM - Respiratory Exam Respiratory Exam: NORMAL BREATHING PATTERN - Cardiovascular Exam Cardiovascular Exam: +S1, +S2 - GI/Abdominal Exam GI & Abdominal Exam: Soft - Extremities Exam Extremities Exam: Full ROM - Neurological Exam Neurological Exam: Awake Additional comments: responsive to touch - Psychiatric Exam Psychiatric exam: Flat Affect - Skin Skin Exam: Dry, Warm Assessment and Plan (1) Chest pain Status: Acute (2) CHF exacerbation Status: Chronic (3) Pneumonia Status: Acute (4) CAD (coronary artery disease) Status: Chronic (5) HTN (hypertension) Status: Chronic (6) CKD (chronic kidney disease) Status: Chronic (7) Diabetes mellitus Status: Chronic (8) HLD (hyperlipidemia) Status: Chronic (9) Constipation Status: Chronic (10) Anemia Status: Chronic (11) History of DVT (deep vein thrombosis) Status: Acute (12) Prophylactic measure Status: Acute - Assessment and Plan (Free Text) Assessment: Hx of Atrial Flutter Intermittent Likely due to Dobutamine administration which has since been discontinued Amiodarone discontinued; Will monitor to see that patient is rate controlled. On Metoprolol 50 mg PO BID, Eliquis 2.5 mg PO BID CAD, chest pain -No current plans for cardiac cath (acute respiratory failure and elevated Cr) , history of abnormal stress test -Elevated Troponin likely due to chest compressions during cardiac arrest 9/13 -No acute ST changes on EKG -Continue ASA, Crestor, Metoprolol. -Echocardiogram from 08/08/17 showed left ventricle systolic function is severely impaired. EF: 25-30%; global hypokinesis of LV mild AR. MR is moderate. Moderate-severe pulmonary hypertension Systolic CHF exacerbation -BNP 99962 on 08/06/17 -Continue ASA, Crestor, Metoprolol -Echocardiogram from 08/08/17 showed left ventricle systolic function is severely impaired. EF: 25-30%; global hypokinesis of LV mild AR. MR is moderate. Moderate-severe pulmonary hypertesnion Dobutamine discontinued in light of atrial flutter-type episodes Positive Blood cultures Positive blood cultures noted on 09/05 Repeat B/C to rule out contaminant Diabetes Mellitus ISS Continue to monitor ESRD on HD HD today On Procrit and Phoslo Nephro on the case Prophylaxis Pepcid 20 mg PO daily Eliquis 2.5 mg PO BID (Renal precautions) Disposition Awaiting Transfer to LTAC Discussed with attending. All management and planning per Dr. Cortés <Sina Cortés - Last Filed: 09/07/17 22:37> Objective - Vital Signs/Intake and Output Vital Signs (last 24 hours): Temp Pulse Resp BP Pulse Ox 98.8 F 88 12 104/50 L 95 09/07/17 19:15 09/07/17 20:28 09/07/17 20:28 09/07/17 20:28 09/07/17 20:28 Intake and Output: 09/07/17 09/08/17 18:59 06:59 Intake Total 790 150 Output Total 0 0 Balance 790 150 - Medications Medications: Current Medications Acetylcysteine (Acetylcysteine 20%) 4 ml INH RQ6 [facility] Last Admin: 09/07/17 19:09 Dose: 4 ml Albuterol/Ipratropium (Duoneb 3 Mg/0.5 Mg (3 Ml) Ud) 3 ml INH RQ6 [facility] Last Admin: 09/07/17 19:10 Dose: 3 ml Apixaban (Eliquis) 2.5 mg PO BID [facility] Last Admin: 09/06/17 10:07 Dose: 2.5 mg Aspirin (Aspirin Chewable) 81 mg PO DAILY [facility] Last Admin: 09/07/17 10:24 Dose: 81 mg Calcium Acetate (Phoslo) 2,001 mg GT TIDCC [facility] Last Admin: 09/07/17 16:41 Dose: 2,001 mg Famotidine (Pepcid) 20 mg PO DAILY [facility] Last Admin: 09/07/17 10:24 Dose: 20 mg Vancomycin HCl 1 gm/ Sodium (Chloride) 250 mls @ 166.7 mls/hr IVPB MWF [facility] Insulin Aspart (Novolog) 0 unit SC Q6 [facility] PRN Reason: Protocol Last Admin: 09/07/17 18:29 Dose: Not Given Insulin Detemir (Levemir) 43 unit SC Q12 [facility] Last Admin: 09/07/17 21:51 Dose: 43 unit Lactobacillus Acidophilus (Bacid Acidophilus) 1 cap PO BID [facility] Last Admin: 09/07/17 18:49 Dose: 1 cap Lisinopril (Zestril) 5 mg PO DAILY [facility] Last Admin: 09/07/17 10:24 Dose: 5 mg Metoprolol Tartrate (Lopressor) 50 mg PO BID [facility] Last Admin: 09/07/17 18:49 Dose: 50 mg Rosuvastatin Calcium (Crestor) 10 mg PO HS [facility] Last Admin: 08/26/17 22:41 Dose: 10 mg - Labs Labs: 09/07/17 06:15 09/07/17 06:19 PT 13.9 SECONDS (9.7-12.2) H 08/24/17 06:08 INR 1.2 08/24/17 06:08 APTT 55 SECONDS (21-34) H D 08/17/17 06:12 Assessment and Plan - Assessment and Plan (Free Text) Assessment: Patient seen and evaluated with the medical parasitologist Plan of care as documented
--- NOTE | 2017-09-07 13:58 | RAD ---
Right hip x-ray two views History: Dislocation. Comparison: None available. Findings: Limited study secondary to osteopenia and large patient body habitus. Prominent vascular calcifications. Moderate degenerative changes of the right hip joint space with joint space narrowing and subchondral sclerosis. No evidence of acute displaced fracture or dislocation. Correlation with MRI may be helpful to exclude radiooccult injury. Moderate degenerative changes at the left hip joint space with subchondral sclerosis. 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 Degenerative changes in the lower lumbar spine with a suggestion of loss of height of the L4 vertebral body. Impression: Degenerative changes. If pain persists, consider MRI to exclude radiooccult injury.
--- NOTE | 2017-09-07 16:04 | CP.PCM.PN ---
Subjective - Date & Time of Evaluation Date of Evaluation: 09/07/17 Time of Evaluation: 14:25 - Subjective Subjective: on HD on trach collar at side nonverbal unable to obtain ROS due to clinical condition Objective - Vital Signs/Intake and Output Vital Signs (last 24 hours): Temp Pulse Resp BP Pulse Ox 99 F 94 H 28 H 115/44 L 93 L 09/07/17 12:00 09/07/17 14:06 09/07/17 14:06 09/07/17 14:06 09/07/17 14:06 Intake and Output: 09/07/17 09/07/17 06:59 18:59 Intake Total 480 590 Balance 480 590 - Medications Medications: Current Medications Acetylcysteine (Acetylcysteine 20%) 4 ml INH RQ6 [facility] Last Admin: 09/07/17 13:33 Dose: 4 ml Albuterol/Ipratropium (Duoneb 3 Mg/0.5 Mg (3 Ml) Ud) 3 ml INH RQ6 [facility] Last Admin: 09/07/17 13:33 Dose: 3 ml Apixaban (Eliquis) 2.5 mg PO BID [facility] Last Admin: 09/06/17 10:07 Dose: 2.5 mg Aspirin (Aspirin Chewable) 81 mg PO DAILY [facility] Last Admin: 09/07/17 10:24 Dose: 81 mg Calcium Acetate (Phoslo) 2,001 mg GT TIDCC [facility] Last Admin: 09/07/17 12:27 Dose: 2,001 mg Famotidine (Pepcid) 20 mg PO DAILY [facility] Last Admin: 09/07/17 10:24 Dose: 20 mg Vancomycin HCl (Vancomycin 1gm In Normal Saline Addvantage) 1 gm in 250 mls @ 167 mls/hr IVPB ONCE ONE Stop: 09/07/17 18:29 Insulin Aspart (Novolog) 0 unit SC Q6 [facility] PRN Reason: Protocol Last Admin: 09/07/17 12:27 Dose: 2 unit Insulin Detemir (Levemir) 43 unit SC Q12 [facility] Last Admin: 09/07/17 10:26 Dose: 43 unit Lactobacillus Acidophilus (Bacid Acidophilus) 1 cap PO BID [facility] Last Admin: 09/07/17 10:24 Dose: 1 cap Lisinopril (Zestril) 5 mg PO DAILY [facility] Last Admin: 09/07/17 10:24 Dose: 5 mg Metoprolol Tartrate (Lopressor) 50 mg PO BID [facility] Last Admin: 09/07/17 10:24 Dose: 50 mg Rosuvastatin Calcium (Crestor) 10 mg PO HS [facility] Last Admin: 08/26/17 22:41 Dose: 10 mg - Labs Labs: 09/07/17 06:15 09/07/17 06:19 PT 13.9 SECONDS (9.7-12.2) H 08/24/17 06:08 INR 1.2 08/24/17 06:08 APTT 55 SECONDS (21-34) H D 08/17/17 06:12 - Constitutional Appears: Confused, Chronically Ill - Head Exam Head Exam: ATRAUMATIC - ENT Exam ENT Exam: Mucous Membranes Moist Additional comments: tracheostomy - Neck Exam Neck Exam: absent: Lymphadenopathy - Respiratory Exam Respiratory Exam: Decreased Breath Sounds. absent: Accessory Muscle Use - Cardiovascular Exam Cardiovascular Exam: REGULAR RHYTHM. absent: Rubs - GI/Abdominal Exam GI & Abdominal Exam: Distended. absent: Guarding - Extremities Exam Extremities Exam: Pedal Edema Assessment and Plan - Assessment and Plan (Free Text) Plan: s/p cardiac arrest trach collar new HD ischemic cardiomyopathy maint HD probable LTACH placement
[2017-09-07] MEDS ORDERED: Vancomycin 1 GM 1 GM/250 ML BAG IVPB ONE (17:00)
[2017-09-07] MEDS ORDERED: Vancomycin 1 gm/NS 200 ml 1 GM/200 ML BAG IVPB ONE (17:00)
--- NOTE | 2017-09-07 17:22 | CP.PCM.CON ---
History of Present Illness - History of Present Illness History of Present Illness: 77 year old male with extensive medical history (please see Assessment and Plans below) was admitted on 08/06/17 for evaluation of SOB and Chest Pain. He was planned for Cardiac Catheterization on 08/09/17. Patient then had Acute Respiratory Failure and had to be intubated and placed on vent. He is S/P Tracheostomy 08/22/17 and PEG Tube Placement 08/25/17. Had been seen by Dr Lawrence in the past Now has positive blood cultures IV antibiotics ordered Lines have been changed as per nursing Review of Systems - Review of Systems All systems: reviewed and no additional remarkable complaints except - Constitutional Constitutional: As Per HPI - EENT Eyes: absent: As Per HPI, Blind Spots, Blurred Vision, Change in Vision, Decreased Night Vision, Diplopia, Discharge, Dry Eye, Exophthalmos, Floaters, Irritation, Itchy Eyes, Loss of Peripheral Vision, Pain, Photophobia, Requires Corrective Lenses, Sees Flashes, Spots in Vision, Tunnel Vision, Other Visual Disturbances, Loss of Vision, Other Ears: absent: As Per HPI, Decreased Hearing, Ear Discharge, Ear Pain, Tinnitus, Abnormal Hearing, Disequilibrium, Dizziness, Other Nose/Mouth/Throat: absent: As Per HPI, Epistaxis, Nasal Congestion, Nasal Discharge, Nasal Obstruction, Nasal Trauma, Nose Pain, Post Nasal Drip, Sinus Pain, Sinus Pressure, Bleeding Gums, Change in Voice, Dental Pain, Dry Mouth, Dysphagia, Halitosis, Hoarsness, Lip Swelling, Mouth Lesions, Mouth Pain, Odynophagia, Sore Throat, Throat Swelling, Tongue Swelling, Facial Pain, Neck Pain, Neck Mass, Other - Cardiovascular Cardiovascular: As Per HPI - Respiratory Respiratory: As Per HPI - Gastrointestinal Gastrointestinal: absent: As Per HPI, Abdominal Pain, Belching, Bloating, Change in Bowel Habits, Change in Stool Character, Coffee Ground Emesis, Constipation, Cramping, Diarrhea, Dyspepsia, Dysphagia, Early Satiety, Excessive Flatus, Fecal Incontinence, Heartburn, Hematemesis, Hematochezia, Loose Stools, Melena, Nausea, Odynophagia, Temesmus, Vomiting, Other - Genitourinary Genitourinary: absent: As Per HPI, Change in Urinary Stream, Difficulty Urinating, Dysuria, Flank Pain, Hematuria, Pyuria, Nocturia, Urinary Incontinence, Urinary Frequency, Urinary Hesitance, Urinary Urgency, Voiding Freq/Small Amts, Freq UTI, Hx Renal/Bladder Calculi, Hx /Renal Surgery, Bladder Distension, Other - Musculoskeletal Musculoskeletal: absent: As Per HPI, Abnormal Gait, Arthralgias, Atrophy, Back Pain, Deformity, Joint Swelling, Limited Range of Motion, Loss of Height, Muscle Cramps, Muscle Weakness, Myalgias, Neck Pain, Numbness, Radiating Pain into Limb, Stiffness, Tingling, Other - Integumentary Integumentary: absent: As Per HPI, Acne, Alopecia, Bleeding Lesions, Change in Hair, Change in Nails, Change in Pigmentation, Changing Lesions, Dry Skin, Erythema, Furuncle, Hirsutism, Lesions, New Lesions, Non-Healing Lesions, Photosensitivity, Pruritus, Rash, Skin Pain, Skin Ulcer, Sores, Striae, Swelling , Unusual Bruising, Wounds, Jaundice, Other - Neurological Neurological: As Per HPI - Psychiatric Psychiatric: absent: As Per HPI, Abnormal Sleep Pattern, Anhedonia, Anxiety, Auditory Hallucinations, Behavioral Changes, Change in Appetite, Change in Libido, Confusion, Depression, Difficulty Concentrating, Hallucinations, Homicidal Ideation, Hopelessness, Irritability, Memory Loss, Mood Swings, Panic Attacks, Paranoia, Suicidal Ideation, Visual Hallucinations, Tactile Hallucinations, Other - Endocrine Endocrine: absent: As Per HPI, Change in Body Appearance, Change in Libido, Cold Intolorance, Deepening of Voice, Excessive Sweating, Fatigue, Flushing, Heat Intolorance, Increase in Ring/Shoe/Hat Size, Palpitations, Polydipsia, Polyphagia, Polyuria, Other - Hematologic/Lymphatic Hematologic: absent: As Per HPI, Easy Bleeding, Easy Bruising, Lymphadenopathy, Other Past Patient History - Infectious Disease Hx of Infectious Diseases: None - Past Medical History & Family History Past Medical History?: Yes - Past Social History Smoking Status: Never Smoked Alcohol: None Drugs: Denies Home Situation {Lives}: With Family - CARDIAC Hx Congestive Heart Failure: Yes Hx Hypercholesterolemia: Yes Hx Hypertension: Yes - PULMONARY Hx Asthma: Yes - RENAL Hx Chronic Kidney Disease: Yes (REANAL INSUFFICIENCY) Hx Kidney Stones: Yes - ENDOCRINE/METABOLIC Hx Diabetes Mellitus Type 2: Yes - MUSCULOSKELETAL/RHEUMATOLOGICAL Hx Arthritis: Yes - GENITOURINARY/GYNECOLOGICAL Hx Genitourinary Disorders: Yes Hx Prostate Problems: Yes (ELEVATED PSA) - PSYCHIATRIC Hx Anxiety: Yes Hx Depression: Yes Hx Substance Use: No - SURGICAL HISTORY Hx Surgeries: Yes Other/Comment: pacemaker on - ANESTHESIA Hx Anesthesia: Yes Hx Anesthesia Reactions: No Hx Malignant Hyperthermia: No Meds Allergies/Adverse Reactions: Allergies Allergy/AdvReac Type Severity Reaction Status Date / Time No Known Allergies Allergy Verified 08/06/17 13:20 - Medications Medications: Current Medications Acetylcysteine (Acetylcysteine 20%) 4 ml INH RQ6 [facility] Last Admin: 09/07/17 13:33 Dose: 4 ml Albuterol/Ipratropium (Duoneb 3 Mg/0.5 Mg (3 Ml) Ud) 3 ml INH RQ6 [facility] Last Admin: 09/07/17 13:33 Dose: 3 ml Apixaban (Eliquis) 2.5 mg PO BID [facility] Last Admin: 09/06/17 10:07 Dose: 2.5 mg Aspirin (Aspirin Chewable) 81 mg PO DAILY [facility] Last Admin: 09/07/17 10:24 Dose: 81 mg Calcium Acetate (Phoslo) 2,001 mg GT TIDCC [facility] Last Admin: 09/07/17 16:41 Dose: 2,001 mg Famotidine (Pepcid) 20 mg PO DAILY [facility] Last Admin: 09/07/17 10:24 Dose: 20 mg Vancomycin/Sodium Chloride (Vancocin) 1 gm in 200 mls @ 167 mls/hr IVPB ONCE ONE Stop: 09/07/17 18:11 Insulin Aspart (Novolog) 0 unit SC Q6 [facility] PRN Reason: Protocol Last Admin: 09/07/17 12:27 Dose: 2 unit Insulin Detemir (Levemir) 43 unit SC Q12 [facility] Last Admin: 09/07/17 10:26 Dose: 43 unit Lactobacillus Acidophilus (Bacid Acidophilus) 1 cap PO BID [facility] Last Admin: 09/07/17 10:24 Dose: 1 cap Lisinopril (Zestril) 5 mg PO DAILY [facility] Last Admin: 09/07/17 10:24 Dose: 5 mg Metoprolol Tartrate (Lopressor) 50 mg PO BID [facility] Last Admin: 09/07/17 10:24 Dose: 50 mg Rosuvastatin Calcium (Crestor) 10 mg PO HS [facility] Last Admin: 08/26/17 22:41 Dose: 10 mg Physical Exam - Constitutional Appears: Non-toxic, Chronically Ill - Head Exam Head Exam: NORMOCEPHALIC - Eye Exam Eye Exam: absent: Scleral icterus - ENT Exam ENT Exam: Mucous Membranes Dry, Normal Oropharynx - Neck Exam Neck exam: Negative for: Lymphadenopathy - Respiratory Exam Respiratory Exam: Decreased Breath Sounds - Cardiovascular Exam Cardiovascular Exam: REGULAR RHYTHM - GI/Abdominal Exam GI & Abdominal Exam: Diminished Bowel Sounds, Soft - Rectal Exam Rectal Exam: Deferred - Exam Exam: NORMAL INSPECTION - Extremities Exam Extremities exam: Negative for: pedal edema - Back Exam Back exam: absent: CVA tenderness (L), CVA tenderness (R) - Neurological Exam Neurological exam: Alert, CN II-XII Intact - Psychiatric Exam Psychiatric exam: Depressed Results - Vital Signs Recent Vital Signs: Last Vital Signs Temp 98 F 09/07/17 14:40 Pulse 94 H 09/07/17 16:30 Resp 24 09/07/17 16:30 BP 117/69 09/07/17 16:30 Pulse Ox 97 09/07/17 16:30 - Labs Result Diagrams: 09/07/17 06:15 09/07/17 06:19 Labs: Laboratory Results - last 24 hr 09/06/17 09/07/17 09/07/17 18:08 00:03 06:14 WBC RBC Hgb Hct MCV MCH MCHC RDW Plt Count MPV Neut % (Auto) Lymph % (Auto) Rob[place] % (Auto) Eos % (Auto) Baso % (Auto) Neut # Lymph # Rob[place] # Eos # Baso # Sodium Potassium Chloride Carbon Dioxide Anion Gap BUN Creatinine Est GFR ( Amer) Est GFR (Non-Af Amer) POC Glucose (mg/dL) 174 H 194 H 192 H Random Glucose Calcium Total Bilirubin AST ALT Alkaline Phosphatase Total Protein Albumin Globulin Albumin/Globulin Ratio 09/07/17 09/07/17 09/07/17 06:15 06:19 11:37 WBC 14.6 H RBC 3.84 L Hgb 9.2 L Hct 29.0 L MCV 75.5 L MCH 24.0 L MCHC 31.8 L RDW 23.3 H Plt Count 520 H MPV 8.0 Neut % (Auto) 76.7 H Lymph % (Auto) 11.6 L Robeson % (Auto) 7.4 Eos % (Auto) 3.4 Baso % (Auto) 0.9 Neut # 11.2 H Lymph # 1.7 Robeson # 1.1 H Eos # 0.5 Baso # 0.1 Sodium 135 Potassium 4.3 Chloride 97 L Carbon Dioxide 24 Anion Gap 18 BUN 98 H Creatinine 7.2 H Est GFR ( Amer) 9 Est GFR (Non-Af Amer) 7 POC Glucose (mg/dL) 239 H Random Glucose 178 H Calcium 10.0 Total Bilirubin 0.5 AST 73 H D ALT 83 H Alkaline Phosphatase 184 H Total Protein 8.0 Albumin 3.1 L Globulin 5.0 H Albumin/Globulin Ratio 0.6 L Assessment & Plan (1) ARDS (adult respiratory distress syndrome) Status: Acute (2) Acute on chronic renal failure Status: Acute (3) CHF (congestive heart failure) Status: Acute (4) Cardiac arrest Status: Acute (5) ESRD (end stage renal disease) Status: Acute (6) Leukocytosis Status: Acute (7) Pneumonia Status: Acute (8) Type 2 diabetes mellitus with diabetic nephropathy Status: Acute - Assessment and Plan (Free Text) Assessment: start IV Vanco cont to monitor in ICU Dr Moo hawk
[2017-09-08] MEDS: (Novolog) Insulin Aspart, Recombinant 100 u/ml 10 ml vial SC SCH ×4 (00:44→18:04)
[2017-09-08] MEDS: Acetylcysteine 20% Inhal Soln (4ml) INH SCH ×4 (02:47→19:55)
[2017-09-08] MEDS: Albuterol-Ipratrop 3 mg / 0.5 (3 ml) UD INH SCH ×4 (02:47→19:55)
[2017-09-08 07:02] LABS: POTASSIUM 3.8 mmol/L (3.6-5.2)
[2017-09-08 07:04] LABS: BILIRUBIN,TOTAL 0.5 mg/dL (0.2-1.3)
[2017-09-08 07:05] LABS: ALB/GLOB RATIO 0.6 (1.0-2.1); CALCIUM 9.4 mg/dl (8.6-10.4); TOTAL PROTEIN 7.8 g/dL (6.3-8.3)
[2017-09-08 07:45] LABS: BASO # 0.1 K/uL (0.0-0.2); BASO % 1.2 % (0.0-2.0); EOS # 0.4 K/uL (0.0-0.7); EOS % 3.5 % (0.0-4.0); HEMATOCRIT 29.1 % (35.0-51.0); LYMPH # 1.3 K/uL (1.0-4.3); LYMPH % 10.6 % (20.0-40.0); MEAN CELL VOLUME 75.6 fL (80.0-94.0); MEAN CORPUSCULAR HGB CONC 31.7 g/dL (33.0-37.0); MEAN PLATELET VOLUME 7.7 fL (7.2-11.7); MONO # 0.9 K/uL (0.0-0.8); MONO % 7.1 % (0.0-10.0); RED CELL DISTRIBUTION WIDTH 22.8 % (11.5-14.5); WHITE BLOOD COUNT 12.4 K/uL (4.8-10.8)
--- NOTE | 2017-09-08 09:46 | CP.PCM.PN ---
Subjective - Date & Time of Evaluation Date of Evaluation: 09/07/17 Time of Evaluation: 08:00 - Subjective Subjective: Medical Attending Note: Patient seen and examined at bedside. Discussed with nursing staff, patient had questionable hematoma over the right lateral thigh which does not appear as hematoma. Completed hip xray overnight: no acute fracture noted. Unable to review ROS secondary to clinical condition. Family not present at bedside. Objective - Vital Signs/Intake and Output Vital Signs (last 24 hours): Temp Pulse Resp BP Pulse Ox 99 F 104 H 26 H 86/38 L 95 09/08/17 08:00 09/08/17 08:00 09/08/17 08:00 09/08/17 07:57 09/08/17 08:00 Intake and Output: 09/08/17 09/08/17 06:59 18:59 Intake Total 200 Output Total 0 Balance 200 - Medications Medications: Current Medications Acetylcysteine (Acetylcysteine 20%) 4 ml INH RQ6 [facility] Last Admin: 09/08/17 08:32 Dose: 4 ml Albuterol/Ipratropium (Duoneb 3 Mg/0.5 Mg (3 Ml) Ud) 3 ml INH RQ6 [facility] Last Admin: 09/08/17 08:32 Dose: 3 ml Apixaban (Eliquis) 2.5 mg PO BID [facility] Last Admin: 09/06/17 10:07 Dose: 2.5 mg Aspirin (Aspirin Chewable) 81 mg PO DAILY [facility] Last Admin: 09/07/17 10:24 Dose: 81 mg Calcium Acetate (Phoslo) 2,001 mg GT TIDCC [facility] Last Admin: 09/08/17 07:02 Dose: 2,001 mg Famotidine (Pepcid) 20 mg PO DAILY [facility] Last Admin: 09/07/17 10:24 Dose: 20 mg Vancomycin HCl 1 gm/ Sodium (Chloride) 250 mls @ 166.7 mls/hr IVPB MWF [facility] Insulin Aspart (Novolog) 0 unit SC Q6 [facility] PRN Reason: Protocol Last Admin: 09/08/17 05:45 Dose: 1 unit Insulin Detemir (Levemir) 43 unit SC Q12 [facility] Last Admin: 09/07/17 21:51 Dose: 43 unit Lactobacillus Acidophilus (Bacid Acidophilus) 1 cap PO BID [facility] Last Admin: 09/07/17 18:49 Dose: 1 cap Lisinopril (Zestril) 5 mg PO DAILY [facility] Last Admin: 09/07/17 10:24 Dose: 5 mg Metoprolol Tartrate (Lopressor) 50 mg PO BID [facility] Last Admin: 09/07/17 18:49 Dose: 50 mg Rosuvastatin Calcium (Crestor) 10 mg PO HS [facility] Last Admin: 08/26/17 22:41 Dose: 10 mg - Labs Labs: 09/08/17 07:35 09/08/17 06:32 PT 13.9 SECONDS (9.7-12.2) H 08/24/17 06:08 INR 1.2 08/24/17 06:08 APTT 55 SECONDS (21-34) H D 08/17/17 06:12 - Constitutional Appears: Chronically Ill - Head Exam Head Exam: NORMAL INSPECTION - Eye Exam Eye Exam: EOMI - ENT Exam ENT Exam: Mucous Membranes Dry - Respiratory Exam Respiratory Exam: Decreased Breath Sounds, Rhonchi, NORMAL BREATHING PATTERN. absent: Respiratory Distress, Stridor - Cardiovascular Exam Cardiovascular Exam: REGULAR RHYTHM, +S1, +S2 - GI/Abdominal Exam GI & Abdominal Exam: Soft, Normal Bowel Sounds. absent: Distended, Firm, Guarding, Rigid, Tenderness, Rebound Additional comments: obese habitus - Extremities Exam Extremities Exam: absent: Pedal Edema, Tenderness Additional comments: no tenderness over the illia bilateral No hematoma noted over right lateral aspect of the thigh - Back Exam Back Exam: absent: CVA tenderness (L), CVA tenderness (R) - Neurological Exam Neurological Exam: Alert, Awake - Skin Skin Exam: Dry, Normal Color, Warm Assessment and Plan - Assessment and Plan (Free Text) Assessment: This is late computer entry for 09/07/17. [email or web address] did not save original note. (1) Acute Respiratory Failure ARDS Cardiac Arrest Pulmonary Edema Nonstemi Assessment and Plan: * Code Blue on 08/10: asystole, cardiopulmonary resuscitative measures initiated , requiring 3 epis, bicarbonate, ROSC achieved and intubated and brought to the ICU for further management; Patient in the ICU from 08/10 until present. * Pulmonary: Dr Mena (Dr. Jeffers covering until 09/04/17)-->help appreciated * Cardiology: Dr. Cortés on board-->help appreciated * GI (Dr. Wills) on board-->help appreciated * S/P Tracheostomy 08/22 * S/P Peg tube placement 08/25 * s/p insertion of right posterior chest tube 08/19-->removed 08/24/17 * There was consideration for possible thoracentesis of left side pleural effusion, evaluated by IR, there is no fluid to drain per Dr. Gross * Chest xray (08/26): right arm PICC is seen with the tip of distal subclavian vein. PICC may be used * Per cardiology, * Restart Aspirin 81mg PO daily * Patient does not need Plavix at this time * Recommend for Eliquis 2.5mg PO BID for atrial flutter * 08/27: patient is pending LTAC, he went eventually need cardiac catheterization when he has stabilized. Held statin secondary to elevated LFTs. Discussed with Dr. Cortés, lowered Amiodarone 200mg PO daily * 08/28: patient is pending LTAC, he went eventually need cardiac catheterization when he has stabilized. Liver function tests improving * 08/29: [facility] has sent request to insurance for authorization for LTAC-->pending * 09/06: pending social work/case management approval for LTAC * 09/07: pending social work/case management approval for LTAC; pending (2) Abnormal Stress Test History of AICD History of Coronary Artery Disease Assessment and Plan: * Cardiology (Dr. Cortés) on board-->help appreciated * TSH: 1.16; T4: 1.53 * Echocardiogram (08/08/17): left ventricle systolic function is severely impaired. EF: 25-30%; global hypokinesis of left ventricle mild aortic regurgitation. Mitral regurgitation is moderate. Moderate-severe pulmonary hypertension * Plan was for cardiac catheterization; delayed due to acute renal failure; Attempted gentle hydration and mucomyst on 08/09 to optimize prior to cath * On 08/10, patient was in asystole, ACLS protocol, ROSC achieved, intubated and transfered to the ICU. Patient in acute pulmonary edema. * Patient hospitalized in the ICU since 08/10/17 to present. * Medications: * Aspirin 81mg PO daily * Plavix d/c by cardiology * Lopressor 50mg PO bid * d/c Crestor 10mg POqHS secondary to rise in LFTS 08/27--->monitor LFTs daily * ARB d/c secondary to acute renal failure * 08/27: patient is pending LTAC, he went eventually need cardiac catheterization when he has stabilized. Held statin secondary to elevated LFTs. Discussed with Dr. Cortés, lowered Amiodarone 200mg PO daily * 08/28: patient is pending LTAC. He will eventually need cardiac catheterization when he has stabilized. Liver function tests improving. Statin is on hold (3) Atrial flutter Assessment and Plan: * Cardiology (Dr. Cortés) on board-->help appreciated * Refractory to Lopressor/Cardizem IVP * Eliquis 2.5mg PO bid * Amiodarone bolus-->Amiodarine drip on 08/24-->converted to Amiodarone 200mg PO TID on 08/26 and this was decreased to 200 mg 1x/day due to increased LFTs * 08/27: Discussed with Dr. Cortés, will lower Amiodarone 200mg PO daily and monitor LFTs. Statin held and tylenol d/c * 08/29: patient is pending LTAC, he will eventually need cardiac catheterization when he has stabilized. Liver function tests improving. Statin is on hold due to the elevated LFTs * 08/30: Cardiology discontinued the Amiodarone * 09/07: Held eliquis; will need to resume Status: Acute (4) Acute on Chronic Systolic CHF exacerbation Assessment and Plan: * Cardiology (Dr. Cortés) on board-->help appreciated * Transferred to the ICU on 08/10 following cardiac arrest and intubation. * Echocardiogram (08/08/17): left ventricular systolic function is severely impaired. EF: 25-30%; global hypokinesis of left ventricle mild aortic regurgitation. Mitral regurgitation is moderate. Moderate-severe pulmonary hypertension * Medications: * Aspirin 81mg PO daily * Plavix d/c by cardiology * Lopressor 50mg PO bid * d/c Crestor 10mg POqHS on 08/27 secondary to rise in LFTs * ARB d/c secondary to acute renal failure Status: Acute (5) Leukocytosis Assessment and Plan: * Patient's white count mildly rising * Pleural Fluid 08/19/17 did not show any growth * Blood cultures (08/26): no growth After 48hours X2 * UA and urine culture (08/27): Urine Culture showed Yeast Species. * Patient has elevated LFTs-->did not start anti-fungal in light of LFTs * Reculture Urine, Blood, and Stool should the WBC continue to trend up * 09/06: stool culture pending; has not had diarrhea or bowel movement * 09/07: Dr. Zimmer (covering Dr. Lawrence) to see the patient given elevated procalcitonin, patient recultured 2 days prior Status: Acute (6) Pneumonia Assessment and Plan: * Pulmonary (Dr. Mena) on board-->help appreciated; Dr. Jeffers covering while Dr. Mena away * Infectious Disease (Dr. Lawrence)-->help appreciated * Chest xray (08/26): right arm PICC is seen with the tip of distal subclavian vein. PICC may be used * Rapid A strep, Influenza A and B studies, Urine Legionella, Mycoplasma studies = Negative * Florastor 250mg PO bid * 08/07/17: +Strep Pneumoniae in the urine * Meropenem 500mg IV Q 8 hours (08/14/17 through 08/18/17) and Zosyn 2.25 mg IV Q6H (08/13/17 through 08/18/17) * Cefepime 1 gm IV Q24H: started on 08/19/17 and was discontinued by ID Dr. Lawrence on 08/30/17: monitor vitals and labs * s/p right posterior chest tube 08/19-08/24 * Sputum Culture 08/19/17 shows No growth * Pleural fluid 08/19/17: No growth Status: Acute (7) HTN (hypertension) Assessment and Plan: * Lopressor 50mg PO bid Status: Chronic (8) CKD (chronic kidney disease) on Dialysis Assessment and Plan: * Dr. Miranda (nephrology) consulted on the case * Hx of CKD-->Started on dialysis 08/15/17 * Kurtis catheter placed and removed 08/22 * s/p Right Chest Permcath 08/22 * Patient is on dialysis; oliguric * Phoslo 1334mg GT TID * Epoetin 10,000 unit IV MWF * 09/03: Hyponatremia noted and is trending back up Status: Acute (9) Diabetes mellitus Assessment and Plan: * Accuchecks Q6H * HgbA1c 8.4 * Started peg feedings on 08/26/17 * Nepro-->50 ml/hour (10) HLD (hyperlipidemia) Assessment and Plan: * 08/27: held Crestor 10 mg PO HS secondary to rise in LFTs * 08/29: Liver function tests improving; waiting to restart statin Status: Chronic (11) Anemia Assessment and Plan: * Heme-oncology (Dr. Giles bender) on board-->help appreciated * Likely iron deficiency anemia based on prior admissions * Ferritin 27.4, Iron 22, TIBC 322, % Saturation 7 * Ferric Sodium Gluconate 125mg IVPB daily (active 08/08-08/16) * Procrit 10,000 units M-W- * Monitor Hgb/Hct: stable Status: Chronic (12) History of DVT (deep vein thrombosis) Assessment and Plan: * Patient was previously on Eliquis for a prior history of DVT. * Repeat dopplers 08/09/17 are negative for DVT * Off Heparin Drip 08/17/17 * Started Eliquis 2.5mg PO BID for atrial flutter and history of DVT Status: Chronic (13) UTI Assessment and Plan: * Infectious disease (Dr. Lawrence) on board-->help appreciated * Exchange jaquez out and repeat urine cultures * Urine Culture 08/12/17 showed Gram Negative Rods: NO identification and NO sensitivities were performed * Meropenem 500mg IV Q 12hours (active since 08/14/17 through 08/18/17) to cover for UTI per ID * Repeat Urine Culture 08/18/17 shows NO growth * 08/25: reculture in light of leukocytosis * 08/27: pending urine studies * 08/30: Urine Culture 08/27/17 showed Yeast Species but no antifungal secondary to recent history of Elevated LFTs Status: Chronic (14) Confusion; Alzheimer's Dementia Assessment and Plan: * Per daughter, patient has been getting bouts of confusion over the past year but appears at baseline. Patient has not seen formal neurology as outpatient per daughter. Per , prior to event, noted Alzheimers' disease dx one year ago * CT head w/o contrast (08/10/17):acute os subacute lacune infarct is not excluded in the left basal ganglia inferiorly with definitive chronic lacune identified in the right basal ganglia superiorly. No acute or subacute lobar brain infarction is appreciable by standard CT criteria. Mild age-related neuro degenerative changes are identifed. 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 No changes to dimensions at this time. Also, pt favoring Left side of head and has developed a 1x1 serous filled blister on his left ear. Primary nurse placed duoderm on the ear. Wound care nurse left duoderm in place , and recommends leaving it on until it falls off on its own. Pt has been NPO for several days, new peg inserted yesterday. Will be starting glucerna tube feedings later today. Albumin 3.3 * Turn q 2 hours * medihoney on unstageable ulcer * duoderm on left ear aurical ulcer * 09/02/17: examined with Wound Care Nurse Emeka Samuel and periphery of the Sacral Wound is pink with some bleeding however center is still black and therefore still unstageable. Continue spray with Cavelon followed by thick coating with MediHoney followed by covering with OptiFoam once a day. * 09/03/17: Change of sacral ulcer dressing was performed by me with assitance from Nurse Lyman * 09/04/17: 09/03/17: Change of sacral ulcer dressing was performed by me with assistance from ALEXANDRA Unger Status: Acute (16) Elevated LFTs Assessment and Plan: * 08/27: Yina * Discussed with cardiology-->changed amiodarone 200mg PO tid to amiodaron 200mg PO daily * D/C tylenol * Held Statin * patient is also on Rocephin to cover for pneumonia * Will not start antifungal * 08/29: starting to down trending since change in amiodarone dose; awaiting to restart statin * 08/30: continues to trend down. Amiodarone was discontinued * 09/01: AST, ALT, Alk Phos still elevated but stable * 09/02: AST, ALT, Alk Phos still elevated but stable * 09/03: LFTs stable * 09/04: LFTs stable Status: Acute (17). Hx Constipation * Monitor bowel movement (18). Prophylactic measure Assessment and Plan: * Pepcid 20mg PO daily * Start Eliquis 2.5mg PO BID * s/p peg placement 08/25 * s/p trachesostomy 08/22 * s/p Permcath placement 08/22 removal Kurtis catheter * s/p right posterior chest tube 08/19-->removed 08/24 * s/p Right Arm PICC 08/26 * (Jovita Serrano): -->number provided to the nurse- ->consented for peg placement; discussed about LTAC 08/26 * I spoke with Dr. Pickard, MARIAJOSE regarding patient's hospitalization up until this point 08/2609/01/17: Dr. Cullen Barth spoke with the patient's [place] with the assistance of Nurse Campos on 3 tower (as multiple attempts of using [employer] indicated that all of the Persian translators were busy) and explained all of the patient's diagnosises. 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 Her ultimate wish is to take patient to [facility] where their children live. I explained to patient that I would not know how that would be coordinated but that the Social Workers/Digital Media Associate at LTAC may be of assistance in this regard. I also informed her that I am not aware of any insurance company that would finance this request. She understands that the patient is awaiting insurance approval for LTAC. 09/01/17 and 09/02/17: Dr. Cullen Barth spoke with Coal Equipment Operator [employer] and we are still awaiting insurance authorization for LTAC placement. 09/05/17: Spoke with [facility] term care social worker, wean trials sent to LTAC pending approval no word yet regarding approval. Ordered for repeat cultures given uptrend in white count. 09/06/17: pending repeat cultures in light of elevated procalcitonin; ID recommended to reculture. Note: patients PICC lined had clogged ports. Red port remains clogged in spite of cath rafaela. Blue port improved after cath rafaela. Possible may need to remove line to r/o infected line. Strong suspicion due to patient's pneumonia given he has thick secretions. 09/07/17: Infectious disease. pending repeat cultures in light of elevated procalcitonin; Note: patients PICC lined had clogged ports. Red port remains clogged in spite of cath rafaela. Blue port improved after cath rafaela. Hip xray negative for acute fracture. There are no noted falls.
[2017-09-08] MEDS ORDERED: Sodium Chloride 0.9% 1,000 ML IV ONE (09:52)
--- NOTE | 2017-09-08 09:54 | CP.PCM.PN ---
Subjective - Date & Time of Evaluation Date of Evaluation: 09/08/17 Time of Evaluation: 09:50 - Subjective Subjective: Medical Attending Note; Patient seen and examined at bedside. Patient finishing therapy with physical and occupational therapy at bedside. Unable to review ROS secondary to condition. Objective - Vital Signs/Intake and Output Vital Signs (last 24 hours): Temp Pulse Resp BP Pulse Ox 99 F 104 H 26 H 86/38 L 95 09/08/17 08:00 09/08/17 08:00 09/08/17 08:00 09/08/17 07:57 09/08/17 08:00 Intake and Output: 09/08/17 09/08/17 06:59 18:59 Intake Total 200 Output Total 0 Balance 200 - Medications Medications: Current Medications Acetylcysteine (Acetylcysteine 20%) 4 ml [facility]H RQ6 [facility] Last Admin: 09/08/17 08:32 Dose: 4 ml Albuterol/Ipratropium (Duoneb 3 Mg/0.5 Mg (3 Ml) Ud) 3 ml INH RQ6 [facility] Last Admin: 09/08/17 08:32 Dose: 3 ml Apixaban (Eliquis) 2.5 mg PO BID [facility] Last Admin: 09/06/17 10:07 Dose: 2.5 mg Aspirin (Aspirin Chewable) 81 mg PO DAILY [facility] Last Admin: 09/07/17 10:24 Dose: 81 mg Calcium Acetate (Phoslo) 2,001 mg GT TIDCC [facility] Last Admin: 09/08/17 07:02 Dose: 2,001 mg Famotidine (Pepcid) 20 mg PO DAILY [facility] Last Admin: 09/07/17 10:24 Dose: 20 mg Vancomycin HCl 1 gm/ Sodium (Chloride) 250 mls @ 166.7 mls/hr IVPB MWF [facility] Insulin Aspart (Novolog) 0 unit SC Q6 [facility] PRN Reason: Protocol Last Admin: 09/08/17 05:45 Dose: 1 unit Insulin Detemir (Levemir) 43 unit SC Q12 [facility] Last Admin: 09/07/17 21:51 Dose: 43 unit Lactobacillus Acidophilus (Bacid Acidophilus) 1 cap PO BID [facility] Last Admin: 09/07/17 18:49 Dose: 1 cap Lisinopril (Zestril) 5 mg PO DAILY [facility] Last Admin: 09/07/17 10:24 Dose: 5 mg Metoprolol Tartrate (Lopressor) 50 mg PO BID [facility] Last Admin: 09/07/17 18:49 Dose: 50 mg Rosuvastatin Calcium (Crestor) 10 mg PO HS [facility] Last Admin: 08/26/17 22:41 Dose: 10 mg - Labs Labs: 09/08/17 07:35 09/08/17 06:32 PT 13.9 SECONDS (9.7-12.2) H 08/24/17 06:08 INR 1.2 08/24/17 06:08 APTT 55 SECONDS (21-34) H D 08/17/17 06:12 - Constitutional Appears: Chronically Ill - Head Exam Head Exam: NORMAL INSPECTION - Eye Exam Eye Exam: EOMI - ENT Exam ENT Exam: Mucous Membranes Dry - Respiratory Exam Respiratory Exam: Decreased Breath Sounds, Rhonchi, NORMAL BREATHING PATTERN. absent: Stridor Additional comments: trach--clean/dry/intact - Cardiovascular Exam Cardiovascular Exam: Tachycardia, +S1, +S2 - GI/Abdominal Exam GI & Abdominal Exam: Soft, Normal Bowel Sounds. absent: Distended, Firm, Guarding, Rigid, Tenderness, Rebound Additional comments: +peg tube-->clean/dry/intact - Extremities Exam Extremities Exam: absent: Pedal Edema, Tenderness - Neurological Exam Neurological Exam: Alert, Awake - Skin Skin Exam: Dry, Normal Color, Warm Assessment and Plan - Assessment and Plan (Free Text) Assessment: (1) Acute Respiratory Failure ARDS Cardiac Arrest Pulmonary Edema Nonstemi Assessment and Plan: * Code Blue on 08/10: asystole, cardiopulmonary resuscitative measures initiated , requiring 3 epis, bicarbonate, ROSC achieved and intubated and brought to the ICU for further management; Patient in the ICU from 08/10 until present. * Pulmonary: Dr Mena (Dr. Jeffers covering until 09/04/17)-->help appreciated * Cardiology: Dr. Cortés on board-->help appreciated * GI (Dr. Wills) on board-->help appreciated * S/P Tracheostomy 08/22 * S/P Peg tube placement 08/25 * s/p insertion of right posterior chest tube 08/19-->removed 08/24/17 * There was consideration for possible thoracentesis of left side pleural effusion, evaluated by IR, there is no fluid to drain per Dr. Gross * Chest xray (08/26): right arm PICC is seen with the tip of distal subclavian vein. PICC may be used * Per cardiology, * Restart Aspirin 81mg PO daily * Patient does not need Plavix at this time * Recommend for Eliquis 2.5mg PO BID for atrial flutter * 08/27: patient is pending LTAC, he went eventually need cardiac catheterization when he has stabilized. Held statin secondary to elevated LFTs. Discussed with Dr. Cortés, lowered Amiodarone 200mg PO daily * 08/28: patient is pending LTAC, he went eventually need cardiac catheterization when he has stabilized. Liver function tests improving * 08/29: Warping Mill Operator Nehal has sent request to insurance for authorization for LTAC-->pending * 09/06: pending social work/case management approval for LTAC * 09/07: pending social work/case management approval for LTAC * 09/08: Unable to get approval for LTAC; pending other options (2) Abnormal Stress Test History of AICD History of Coronary Artery Disease Assessment and Plan: * Cardiology (Dr. Cortés) on board-->help appreciated * TSH: 1.16; T4: 1.53 * Echocardiogram (08/08/17): left ventricle systolic function is severely impaired. EF: 25-30%; global hypokinesis of left ventricle mild aortic regurgitation. Mitral regurgitation is moderate. Moderate-severe pulmonary hypertension * Plan was for cardiac catheterization; delayed due to acute renal failure; Attempted gentle hydration and mucomyst on 08/09 to optimize prior to cath * On 08/10, patient was in asystole, ACLS protocol, ROSC achieved, intubated and transfered to the ICU. Patient in acute pulmonary edema. * Patient hospitalized in the ICU since 08/10/17 to present. * Medications: * Aspirin 81mg PO daily * Plavix d/c by cardiology * Lopressor 50mg PO bid * d/c Crestor 10mg POqHS secondary to rise in LFTS 08/27--->monitor LFTs daily * ARB d/c secondary to acute renal failure * 08/27: patient is pending LTAC, he went eventually need cardiac catheterization when he has stabilized. Held statin secondary to elevated LFTs. Discussed with Dr. Cortés, lowered Amiodarone 200mg PO daily * 08/28: patient is pending LTAC. He will eventually need cardiac catheterization when he has stabilized. Liver function tests improving. Statin is on hold (3) Atrial flutter Assessment and Plan: * Cardiology (Dr. Cortés) on board-->help appreciated * Refractory to Lopressor/Cardizem IVP * Eliquis 2.5mg PO bid * Amiodarone bolus-->Amiodarine drip on 08/24-->converted to Amiodarone 200mg PO TID on 08/26 and this was decreased to 200 mg 1x/day due to increased LFTs * 08/27: Discussed with Dr. Cortés, will lower Amiodarone 200mg PO daily and monitor LFTs. Statin held and tylenol d/c * 08/29: patient is pending LTAC, he will eventually need cardiac catheterization when he has stabilized. Liver function tests improving. Statin is on hold due to the elevated LFTs * 08/30: Cardiology discontinued the Amiodarone * 09/07: Held eliquis; will need to resume Status: Acute (4) Acute on Chronic Systolic CHF exacerbation Assessment and Plan: * Cardiology (Dr. Cortés) on board-->help appreciated * Transferred to the ICU on 08/10 following cardiac arrest and intubation. * Echocardiogram (08/08/17): left ventricular systolic function is severely impaired. EF: 25-30%; global hypokinesis of left ventricle mild aortic regurgitation. Mitral regurgitation is moderate. Moderate-severe pulmonary hypertension * Medications: * Aspirin 81mg PO daily * Plavix d/c by cardiology * Lopressor 50mg PO bid * d/c Crestor 10mg POqHS on 08/27 secondary to rise in LFTs * ARB d/c secondary to acute renal failure Status: Acute (5) Leukocytosis Assessment and Plan: * Patient's white count mildly rising * Pleural Fluid 08/19/17 did not show any growth * Blood cultures (08/26): no growth After 48hours X2 * UA and urine culture (08/27): Urine Culture showed Yeast Species. * Patient has elevated LFTs-->did not start anti-fungal in light of LFTs * Reculture Urine, Blood, and Stool should the WBC continue to trend up * 09/06: stool culture pending; has not had diarrhea or bowel movement * 09/07: Dr. Zimmer (covering Dr. Lawrence) to see the patient given elevated procalcitonin, patient recultured 2 days prior Status: Acute (6) Pneumonia Assessment and Plan: * Pulmonary (Dr. Mena) on board-->help appreciated; Dr. Jeffers covering while Dr. Mena away * Infectious Disease (Dr. Lawrence)-->help appreciated * Chest xray (08/26): right arm PICC is seen with the tip of distal subclavian vein. PICC may be used * Rapid A strep, Influenza A and B studies, Urine Legionella, Mycoplasma studies = Negative * Florastor 250mg PO bid * 08/07/17: +Strep Pneumoniae in the urine * Meropenem 500mg IV Q 8 hours (08/14/17 through 08/18/17) and Zosyn 2.25 mg IV Q6H (08/13/17 through 08/18/17) * Cefepime 1 gm IV Q24H: started on 08/19/17 and was discontinued by ID Dr. Lawrence on 08/30/17: monitor vitals and labs * s/p right posterior chest tube 08/19-08/24 * Sputum Culture 08/19/17 shows No growth * Pleural fluid 08/19/17: No growth Status: Acute (7) HTN (hypertension) Assessment and Plan: * Lopressor 50mg PO bid Status: Chronic (8) CKD (chronic kidney disease) on Dialysis Assessment and Plan: * Dr. Miranda (nephrology) consulted on the case * Hx of CKD-->Started on dialysis 08/15/17 * Kurtis catheter placed and removed 08/22 * s/p Right Chest Permcath 08/22 * Patient is on dialysis; oliguric * Phoslo 1334mg GT TID * Epoetin 10,000 unit IV MWF * 09/03: Hyponatremia noted and is trending back up Status: Acute (9) Diabetes mellitus Assessment and Plan: * Accuchecks Q6H * HgbA1c 8.4 * Started peg feedings on 08/26/17 * Nepro-->50 ml/hour (10) HLD (hyperlipidemia) Assessment and Plan: * 08/27: held Crestor 10 mg PO HS secondary to rise in LFTs * 08/29: Liver function tests improving; waiting to restart statin Status: Chronic (11) Anemia Assessment and Plan: * Heme-oncology (Dr. Giles bender) on board-->help appreciated * Likely iron deficiency anemia based on prior admissions * Ferritin 27.4, Iron 22, TIBC 322, % Saturation 7 * Ferric Sodium Gluconate 125mg IVPB daily (active 08/08-08/16) * Procrit 10,000 units M-W- * Monitor Hgb/Hct: stable Status: Chronic (12) History of DVT (deep vein thrombosis) Assessment and Plan: * Patient was previously on Eliquis for a prior history of DVT. * Repeat dopplers 08/09/17 are negative for DVT * Off Heparin Drip 08/17/17 * Started Eliquis 2.5mg PO BID for atrial flutter and history of DVT Status: Chronic (13) UTI Assessment and Plan: * Infectious disease (Dr. Lawrence) on board-->help appreciated * Exchange jaquez out and repeat urine cultures * Urine Culture 08/12/17 showed Gram Negative Rods: NO identification and NO sensitivities were performed * Meropenem 500mg IV Q 12hours (active since 08/14/17 through 08/18/17) to cover for UTI per ID * Repeat Urine Culture 08/18/17 shows NO growth * 08/25: reculture in light of leukocytosis * 08/27: pending urine studies * 08/30: Urine Culture 08/27/17 showed Yeast Species but no antifungal secondary to recent history of Elevated LFTs Status: Chronic (14) Confusion; Alzheimer's Dementia Assessment and Plan: * Per daughter, patient has been getting bouts of confusion over the past year but appears at baseline. Patient has not seen formal neurology as outpatient per daughter. Per , prior to event, noted Alzheimers' disease dx one year ago * CT head w/o contrast (08/10/17):acute os subacute lacune infarct is not excluded in the left basal ganglia inferiorly with definitive chronic lacune identified in the right basal ganglia superiorly. No acute or subacute lobar brain infarction is appreciable by standard CT criteria. Mild age-related neuro degenerative changes are identifed. 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 No changes to dimensions at this time. Also, pt favoring Left side of head and has developed a 1x1 serous filled blister on his left ear. Primary nurse placed duoderm on the ear. Wound care nurse left duoderm in place , and recommends leaving it on until it falls off on its own. Pt has been NPO for several days, new peg inserted yesterday. Will be starting glucerna tube feedings later today. Albumin 3.3 * Turn q 2 hours * medihoney on unstageable ulcer * duoderm on left ear aurical ulcer * 09/02/17: examined with Wound Care Nurse Emeka Samuel and periphery of the Sacral Wound is pink with some bleeding however center is still black and therefore still unstageable. Continue spray with Cavelon followed by thick coating with MediHoney followed by covering with OptiFoam once a day. * 09/03/17: Change of sacral ulcer dressing was performed by me with assitance from Nurse Lyman * 09/04/17: 09/03/17: Change of sacral ulcer dressing was performed by me with assistance from ALEXANDRA Unger Status: Acute (16) Elevated LFTs Assessment and Plan: * 08/27: Yina * Discussed with cardiology-->changed amiodarone 200mg PO tid to amiodaron 200mg PO daily * D/C tylenol * Held Statin * patient is also on Rocephin to cover for pneumonia * Will not start antifungal * 08/29: starting to down trending since change in amiodarone dose; awaiting to restart statin * 08/30: continues to trend down. Amiodarone was discontinued * 09/01: AST, ALT, Alk Phos still elevated but stable * 09/02: AST, ALT, Alk Phos still elevated but stable * 09/03: LFTs stable * 09/04: LFTs stable Status: Acute (17). Hx Constipation * Monitor bowel movement (18). Prophylactic measure Assessment and Plan: * Pepcid 20mg PO daily * Start Eliquis 2.5mg PO BID * s/p peg placement 08/25 * s/p trachesostomy 08/22 * s/p Permcath placement 08/22 removal Kurtis catheter * s/p right posterior chest tube 08/19-->removed 08/24 * s/p Right Arm PICC 08/26 * (Jovita Serrano): -->number provided to the nurse- ->consented for peg placement; discussed about LTAC 08/26 * I spoke with Dr. Pickard, MARIAJOSE regarding patient's hospitalization up until this point 08/2609/01/17: Dr. Cullen Barth spoke with the patient's [place] with the assistance of Nurse Campos on 3 tower (as multiple attempts of using [employer] indicated that all of the Mongolian translators were busy) and explained all of the patient's diagnosises. 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 Her ultimate wish is to take patient to [facility] where their children live. I explained to patient that I would not know how that would be coordinated but that the Social Workers/Psychology Clinician at LTAC may be of assistance in this regard. I also informed her that I am not aware of any insurance company that would finance this request. She understands that the patient is awaiting insurance approval for LTAC. 09/01/17 and 09/02/17: Dr. Cullen Barth spoke with Community Marketing Manager Demetria and we are still awaiting insurance authorization for LTAC placement. 09/05/17: Spoke with nehal, social work therapist, wean trials sent to LTAC pending approval no word yet regarding approval. Ordered for repeat cultures given uptrend in white count. 09/06/17: pending repeat cultures in light of elevated procalcitonin; ID recommended to reculture. Note: patients PICC lined had clogged ports. Red port remains clogged in spite of cath rafaela. Blue port improved after cath rafaela. Possible may need to remove line to r/o infected line. Strong suspicion due to patient's pneumonia given he has thick secretions. 09/07/17: Infectious disease. pending repeat cultures in light of elevated procalcitonin; Note: patients PICC lined had clogged ports. Red port remains clogged in spite of cath rafaela. Blue port improved after cath rafaela. Hip xray negative for acute fracture. There are no noted falls. 09/08/17: Patient denied for LTAC; awaiting for other options from case management/social work. Resident Daniel spoke with Dr. Cortés, patient be transferred under regular bed, when bed is available. Infectious disease on board; Patient started on IV Vancomycin in light of + blood culture. Pending chest xray.
--- NOTE | 2017-09-08 10:00 | CP.PCM.PN ---
Subjective - Date & Time of Evaluation Date of Evaluation: 09/08/17 Time of Evaluation: 09:58 - Subjective Subjective: Stable dialysis 09/07 Remains confused, on trach collar Objective - Vital Signs/Intake and Output Vital Signs (last 24 hours): Temp Pulse Resp BP Pulse Ox 99 F 104 H 26 H 86/38 L 95 09/08/17 08:00 09/08/17 08:00 09/08/17 08:00 09/08/17 07:57 09/08/17 08:00 Intake and Output: 09/08/17 09/08/17 06:59 18:59 Intake Total 200 Output Total 0 Balance 200 - Medications Medications: Current Medications Acetylcysteine (Acetylcysteine 20%) 4 ml INH RQ6 [facility] Last Admin: 09/08/17 08:32 Dose: 4 ml Albuterol/Ipratropium (Duoneb 3 Mg/0.5 Mg (3 Ml) Ud) 3 ml INH RQ6 [facility] Last Admin: 09/08/17 08:32 Dose: 3 ml Apixaban (Eliquis) 2.5 mg PO BID [facility] Last Admin: 09/06/17 10:07 Dose: 2.5 mg Aspirin (Aspirin Chewable) 81 mg PO DAILY [facility] Last Admin: 09/07/17 10:24 Dose: 81 mg Calcium Acetate (Phoslo) 2,001 mg GT TIDCC [facility] Last Admin: 09/08/17 07:02 Dose: 2,001 mg Famotidine (Pepcid) 20 mg PO DAILY [facility] Last Admin: 09/07/17 10:24 Dose: 20 mg Vancomycin HCl 1 gm/ Sodium (Chloride) 250 mls @ 166.7 mls/hr IVPB MWF [facility] Sodium Chloride (Sodium Chloride 0.9%) 1,000 mls @ 1,000 mls/hr IV .Q1H ONE Stop: 09/08/17 10:51 Insulin Aspart (Novolog) 0 unit SC Q6 [facility] PRN Reason: Protocol Last Admin: 09/08/17 05:45 Dose: 1 unit Insulin Detemir (Levemir) 43 unit SC Q12 [facility] Last Admin: 09/07/17 21:51 Dose: 43 unit Lactobacillus Acidophilus (Bacid Acidophilus) 1 cap PO BID [facility] Last Admin: 09/07/17 18:49 Dose: 1 cap Lisinopril (Zestril) 5 mg PO DAILY [facility] Last Admin: 09/07/17 10:24 Dose: 5 mg Metoprolol Tartrate (Lopressor) 50 mg PO BID [facility] Last Admin: 09/07/17 18:49 Dose: 50 mg Rosuvastatin Calcium (Crestor) 10 mg PO HS [facility] Last Admin: 08/26/17 22:41 Dose: 10 mg - Labs Labs: 09/08/17 07:35 09/08/17 06:32 PT 13.9 SECONDS (9.7-12.2) H 08/24/17 06:08 INR 1.2 08/24/17 06:08 APTT 55 SECONDS (21-34) H D 08/17/17 06:12 - Constitutional Appears: No Acute Distress, Chronically Ill - Head Exam Head Exam: ATRAUMATIC, NORMAL INSPECTION - Eye Exam Eye Exam: EOMI, Normal appearance - Neck Exam Neck Exam: Normal Inspection. absent: Tenderness - Respiratory Exam Respiratory Exam: Rhonchi, NORMAL BREATHING PATTERN - Cardiovascular Exam Cardiovascular Exam: Irregular Rhythm, +S1 - GI/Abdominal Exam GI & Abdominal Exam: Soft. absent: Tenderness - Extremities Exam Extremities Exam: Normal Inspection. absent: Tenderness - Neurological Exam Neurological Exam: Altered, CN II-XII Intact - Skin Skin Exam: Dry, Warm Assessment and Plan (1) Acute on chronic renal failure Status: Acute (2) CAD (coronary artery disease) Status: Chronic (3) CHF exacerbation Status: Chronic (4) Type 2 diabetes mellitus with diabetic nephropathy Status: Acute (5) CKD stage 4 due to type 2 diabetes mellitus Status: Acute (6) Cardiorenal disease Status: Acute (7) ESRD (end stage renal disease) Status: Acute - Assessment and Plan (Free Text) Plan: Dialysis MWF Same other treatments Await outpt dialysis placement
[2017-09-08] MEDS: Lactobacillus Acidophilus 500 MU Cap PO SCH ×2 (10:06→17:13)
[2017-09-08] MEDS: Insulin Detemir 100 units/ml Vial (Levemir) SC SCH ×2 (10:08→21:22)
--- NOTE | 2017-09-08 18:15 | CP.PCM.PN ---
Subjective - Date & Time of Evaluation Date of Evaluation: 09/08/17 Time of Evaluation: 07:00 - Subjective Subjective: resting on vent afebrile confused some secretions from trach on Vanco IV sputum c/s noted- possible colonization ? will obtain cxr Objective - Vital Signs/Intake and Output Vital Signs (last 24 hours): Temp Pulse Resp BP Pulse Ox 97.8 F 105 H 28 H 108/42 L 98 09/08/17 16:00 09/08/17 16:00 09/08/17 16:00 09/08/17 15:56 09/08/17 16:00 Intake and Output: 09/08/17 09/08/17 06:59 18:59 Intake Total 200 450 Output Total 0 Balance 200 450 - Medications Medications: Current Medications Acetylcysteine (Acetylcysteine 20%) 4 ml INH RQ6 [facility] Last Admin: 09/08/17 13:53 Dose: 4 ml Albuterol/Ipratropium (Duoneb 3 Mg/0.5 Mg (3 Ml) Ud) 3 ml INH RQ6 [facility] Last Admin: 09/08/17 13:53 Dose: 3 ml Apixaban (Eliquis) 2.5 mg PO BID [facility] Last Admin: 09/08/17 17:14 Dose: 2.5 mg Aspirin (Aspirin Chewable) 81 mg PO DAILY [facility] Last Admin: 09/08/17 10:06 Dose: 81 mg Calcium Acetate (Phoslo) 2,001 mg GT TIDCC [facility] Last Admin: 09/08/17 17:14 Dose: 2,001 mg Famotidine (Pepcid) 20 mg PO DAILY [facility] Last Admin: 09/08/17 10:10 Dose: 20 mg Vancomycin HCl 1 gm/ Sodium (Chloride) 250 mls @ 166.7 mls/hr IVPB MWF [facility] Insulin Aspart (Novolog) 0 unit SC Q6 [facility] PRN Reason: Protocol Last Admin: 09/08/17 18:04 Dose: 2 unit Insulin Detemir (Levemir) 43 unit SC Q12 [facility] Last Admin: 09/08/17 10:08 Dose: 43 unit Lactobacillus Acidophilus (Bacid Acidophilus) 1 cap PO BID [facility] Last Admin: 09/08/17 17:13 Dose: 1 cap Lisinopril (Zestril) 5 mg PO DAILY [facility] Last Admin: 09/08/17 10:10 Dose: 5 mg Metoprolol Tartrate (Lopressor) 50 mg PO BID [facility] Last Admin: 09/08/17 17:15 Dose: 50 mg Rosuvastatin Calcium (Crestor) 10 mg PO HS [facility] Last Admin: 08/26/17 22:41 Dose: 10 mg - Labs Labs: 09/08/17 07:35 09/08/17 06:32 PT 13.9 SECONDS (9.7-12.2) H 08/24/17 06:08 INR 1.2 08/24/17 06:08 APTT 55 SECONDS (21-34) H D 08/17/17 06:12 - Constitutional Appears: Non-toxic, Confused, Chronically Ill - Head Exam Head Exam: NORMOCEPHALIC - Eye Exam Eye Exam: PERRL - ENT Exam ENT Exam: Mucous Membranes Dry - Neck Exam Neck Exam: absent: Lymphadenopathy - Respiratory Exam Respiratory Exam: Decreased Breath Sounds, Rhonchi - Cardiovascular Exam Cardiovascular Exam: REGULAR RHYTHM - GI/Abdominal Exam GI & Abdominal Exam: Distended, Soft - Rectal Exam Rectal Exam: Deferred - Exam Exam: NORMAL INSPECTION - Extremities Exam Extremities Exam: absent: Pedal Edema - Back Exam Back Exam: absent: CVA tenderness (L), CVA tenderness (R) - Neurological Exam Neurological Exam: Altered, CN II-XII Intact - Psychiatric Exam Psychiatric exam: Normal Mood - Skin Skin Exam: Dry Assessment and Plan (1) ARDS (adult respiratory distress syndrome) Status: Acute (2) Acute on chronic renal failure Status: Acute (3) CHF (congestive heart failure) Status: Acute (4) Cardiac arrest Status: Acute (5) ESRD (end stage renal disease) Status: Acute (6) Leukocytosis Status: Acute (7) Pneumonia Status: Acute (8) Type 2 diabetes mellitus with diabetic nephropathy Status: Acute
--- NOTE | 2017-09-08 22:24 | CP.PCM.PN ---
Subjective - Date & Time of Evaluation Date of Evaluation: 09/08/17 Time of Evaluation: 07:05 - Subjective Subjective: Patient seen and examined in no acute distress. Denies chest pain and dyspnea Physical Examination - Constitutional Appears: Non-toxic, No Acute Distress - Head Exam Head Exam: ATRAUMATIC, NORMAL INSPECTION - Eye Exam Eye Exam: EOMI, PERRL - ENT Exam ENT Exam: Mucous Membranes Moist Additional comments: trach in place with minimal secretions - Neck Exam Neck Exam: Full ROM - Respiratory Exam Respiratory Exam: NORMAL BREATHING PATTERN - Cardiovascular Exam Cardiovascular Exam: +S1, +S2 - GI/Abdominal Exam GI & Abdominal Exam: Soft - Extremities Exam Extremities Exam: Full ROM - Neurological Exam Neurological Exam: Awake Additional comments: responsive to touch - Psychiatric Exam Psychiatric exam: Flat Affect - Skin Skin Exam: Dry, Warm Objective - Vital Signs/Intake and Output Vital Signs (last 24 hours): Temp Pulse Resp BP Pulse Ox 97.9 F 92 H 12 108/45 L 98 09/08/17 20:00 09/08/17 22:00 09/08/17 22:00 09/08/17 22:00 09/08/17 22:00 Intake and Output: 09/08/17 09/09/17 18:59 06:59 Intake Total 550 Output Total 0 Balance 550 - Medications Medications: Current Medications Acetylcysteine (Acetylcysteine 20%) 4 ml INH RQ6 [facility] Last Admin: 09/08/17 19:55 Dose: 4 ml Albuterol/Ipratropium (Duoneb 3 Mg/0.5 Mg (3 Ml) Ud) 3 ml INH RQ6 [facility] Last Admin: 09/08/17 19:55 Dose: 3 ml Apixaban (Eliquis) 2.5 mg PO BID [facility] Last Admin: 09/08/17 17:14 Dose: 2.5 mg Aspirin (Aspirin Chewable) 81 mg PO DAILY [facility] Last Admin: 09/08/17 10:06 Dose: 81 mg Calcium Acetate (Phoslo) 2,001 mg GT TIDCC [facility] Last Admin: 09/08/17 17:14 Dose: 2,001 mg Famotidine (Pepcid) 20 mg PO DAILY [facility] Last Admin: 09/08/17 10:10 Dose: 20 mg Vancomycin HCl 1 gm/ Sodium (Chloride) 250 mls @ 166.7 mls/hr IVPB MWF [facility] Insulin Aspart (Novolog) 0 unit SC Q6 [facility] PRN Reason: Protocol Last Admin: 09/08/17 18:04 Dose: 2 unit Insulin Detemir (Levemir) 43 unit SC Q12 [facility] Last Admin: 09/08/17 21:22 Dose: 43 unit Lactobacillus Acidophilus (Bacid Acidophilus) 1 cap PO BID [facility] Last Admin: 09/08/17 17:13 Dose: 1 cap Lisinopril (Zestril) 5 mg PO DAILY [facility] Last Admin: 09/08/17 10:10 Dose: 5 mg Metoprolol Tartrate (Lopressor) 50 mg PO BID [facility] Last Admin: 09/08/17 17:15 Dose: 50 mg Rosuvastatin Calcium (Crestor) 10 mg PO HS [facility] Last Admin: 08/26/17 22:41 Dose: 10 mg - Labs Labs: 09/08/17 07:35 09/08/17 06:32 PT 13.9 SECONDS (9.7-12.2) H 08/24/17 06:08 INR 1.2 08/24/17 06:08 APTT 55 SECONDS (21-34) H D 08/17/17 06:12 Assessment and Plan - Assessment and Plan (Free Text) Assessment: Hx of Atrial Flutter Intermittent Likely due to Dobutamine administration which has since been discontinued Amiodarone discontinued; Will monitor to see that patient is rate controlled. On Metoprolol 50 mg PO BID, Eliquis 2.5 mg PO BID CAD, chest pain -No current plans for cardiac cath (acute respiratory failure and elevated Cr) , history of abnormal stress test -Elevated Troponin likely due to chest compressions during cardiac arrest 08/10 -No acute ST changes on EKG -Continue ASA, Crestor, Metoprolol. -Echocardiogram from 08/08/17 showed left ventricle systolic function is severely impaired. EF: 25-30%; global hypokinesis of LV mild AR. MR is moderate. Moderate-severe pulmonary hypertension Systolic CHF exacerbation -BNP 84253 on 08/06/17 -Continue ASA, Crestor, Metoprolol -Echocardiogram from 08/08/17 showed left ventricle systolic function is severely impaired. EF: 25-30%; global hypokinesis of LV mild AR. MR is moderate. Moderate-severe pulmonary hypertesnion Dobutamine discontinued in light of atrial flutter-type episodes Positive Blood cultures Positive blood cultures noted on 09/05 Repeat B/C to rule out contaminant Diabetes Mellitus ISS Continue to monitor ESRD on HD HD today On [place]t and Scar Nephro on the case Prophylaxis Pepcid 20 mg PO daily Eliquis 2.5 mg PO BID (Renal precautions) Disposition Awaiting Transfer to LTAC
[2017-09-09] MEDS: (Novolog) Insulin Aspart, Recombinant 100 u/ml 10 ml vial SC SCH ×4 (00:26→18:23)
[2017-09-09] MEDS: Acetylcysteine 20% Inhal Soln (4ml) INH SCH ×4 (01:36→19:06)
[2017-09-09] MEDS: Albuterol-Ipratrop 3 mg / 0.5 (3 ml) UD INH SCH ×4 (01:36→19:06)
[2017-09-09 06:14] LABS: BASO # 0.1 K/uL (0.0-0.2); BASO % 0.6 % (0.0-2.0); EOS # 0.4 K/uL (0.0-0.7); EOS % 3.3 % (0.0-4.0); HEMATOCRIT 27.8 % (35.0-51.0); LYMPH # 1.4 K/uL (1.0-4.3); LYMPH % 11.2 % (20.0-40.0); MEAN CELL VOLUME 75.6 fL (80.0-94.0); MEAN CORPUSCULAR HEMOGLOBIN 23.6 pg (27.0-31.0); MEAN CORPUSCULAR HGB CONC 31.2 g/dL (33.0-37.0); MEAN PLATELET VOLUME 8.1 fL (7.2-11.7); MONO # 0.9 K/uL (0.0-0.8); WHITE BLOOD COUNT 12.2 K/uL (4.8-10.8)
[2017-09-09 06:31] LABS: POTASSIUM 4.2 mmol/L (3.6-5.2)
[2017-09-09 06:33] LABS: ALB/GLOB RATIO 0.6 (1.0-2.1); BILIRUBIN,TOTAL 0.4 mg/dL (0.2-1.3); TOTAL PROTEIN 7.5 g/dL (6.3-8.3)
--- NOTE | 2017-09-09 08:11 | RAD ---
HISTORY: fever s/p trach COMPARISON: Portable chest 08/17/2017. FINDINGS: Tunneled right central venous line, tracheostomy tube and implanted fit defibrillator/pacemaker unchanged. Tracheostomy tube stable as well. Right Midline PICC unchanged LUNGS: Diminishing left basilar airspace disease appreciated as well as at the medial right base. PLEURA: Diminished left pleural effusion noted. None is seen the right. No pneumothorax bilaterally. CARDIOVASCULAR: Cardiomegaly is stable. No pulmonary vascular derangement. OSSEOUS STRUCTURES: No significant abnormalities. VISUALIZED UPPER ABDOMEN: Normal. OTHER FINDINGS: None. IMPRESSION: Diminishing bilateral basilar airspace disease, particularly at the left side with trace of pleural effusion remaining. None is seen the right. Stable cardiomegaly.
[2017-09-09 09:04] LABS: PHOSPHOROUS 5.1 mg/dL (2.5-4.5)
[2017-09-09 09:05] LABS: MAGNESIUM 2.8 mg/dL (1.6-2.3)
[2017-09-09] MEDS: Lactobacillus Acidophilus 500 MU Cap PO SCH ×2 (09:12→17:21)
[2017-09-09] MEDS: Insulin Detemir 100 units/ml Vial (Levemir) SC SCH ×2 (09:33→22:04)
--- NOTE | 2017-09-09 12:43 | CP.PCM.PN ---
Subjective - Date & Time of Evaluation Date of Evaluation: 09/09/17 Time of Evaluation: 12:40 - Subjective Subjective: Appears same- lethargic, on trach collar afebrile discharges around permcath exit site? CXR- less CHF changes Objective - Vital Signs/Intake and Output Vital Signs (last 24 hours): Temp Pulse Resp BP Pulse Ox 98.3 F 93 H 25 H 122/47 L 97 09/09/17 08:00 09/09/17 10:07 09/09/17 10:07 09/09/17 10:07 09/09/17 10:07 Intake and Output: 09/09/17 09/09/17 06:59 18:59 Intake Total 250 Balance 250 - Medications Medications: Current Medications Acetylcysteine (Acetylcysteine 20%) 4 ml INH RQ6 [facility] Last Admin: 09/09/17 07:46 Dose: 4 ml Albuterol/Ipratropium (Duoneb 3 Mg/0.5 Mg (3 Ml) Ud) 3 ml INH RQ6 [facility] Last Admin: 09/09/17 07:46 Dose: 3 ml Apixaban (Eliquis) 2.5 mg PO BID [facility] Last Admin: 09/09/17 09:31 Dose: 2.5 mg Aspirin (Aspirin Chewable) 81 mg PO DAILY [facility] Last Admin: 09/09/17 09:12 Dose: 81 mg Calcium Acetate (Phoslo) 2,001 mg GT TIDCC [facility] Last Admin: 09/09/17 11:52 Dose: Not Given Famotidine (Pepcid) 20 mg PO DAILY [facility] Last Admin: 09/09/17 09:11 Dose: 20 mg Vancomycin HCl 1 gm/ Sodium (Chloride) 250 mls @ 166.7 mls/hr IVPB MWF [facility] Last Admin: 09/09/17 08:51 Dose: 166.7 mls/hr Insulin Aspart (Novolog) 0 unit SC Q6 [facility] PRN Reason: Protocol Last Admin: 09/09/17 11:51 Dose: 2 unit Insulin Detemir (Levemir) 43 unit SC Q12 [facility] Last Admin: 09/09/17 09:33 Dose: 43 unit Lactobacillus Acidophilus (Bacid Acidophilus) 1 cap PO BID [facility] Last Admin: 09/09/17 09:12 Dose: 1 cap Lisinopril (Zestril) 5 mg PO DAILY [facility] Last Admin: 09/09/17 09:35 Dose: Not Given Metoprolol Tartrate (Lopressor) 50 mg PO BID [facility] Last Admin: 09/09/17 09:34 Dose: Not Given Rosuvastatin Calcium (Crestor) 10 mg PO HS [facility] Last Admin: 08/26/17 22:41 Dose: 10 mg - Labs Labs: 09/09/17 06:04 09/09/17 06:04 PT 13.9 SECONDS (9.7-12.2) H 08/24/17 06:08 INR 1.2 08/24/17 06:08 APTT 55 SECONDS (21-34) H D 08/17/17 06:12 - Constitutional Appears: No Acute Distress, Chronically Ill - Head Exam Head Exam: ATRAUMATIC, NORMAL INSPECTION - Eye Exam Eye Exam: EOMI, Normal appearance - Neck Exam Neck Exam: Normal Inspection. absent: Tenderness - Respiratory Exam Respiratory Exam: Decreased Breath Sounds, Clear to Ausculation Bilateral - Cardiovascular Exam Cardiovascular Exam: Tachycardia, +S1 - GI/Abdominal Exam GI & Abdominal Exam: Soft. absent: Tenderness - Extremities Exam Extremities Exam: Normal Inspection. absent: Tenderness - Neurological Exam Neurological Exam: Altered, CN II-XII Intact - Skin Skin Exam: Dry, Warm Assessment and Plan (1) Acute on chronic renal failure Status: Acute (2) CAD (coronary artery disease) Status: Chronic (3) CHF exacerbation Status: Chronic (4) Type 2 diabetes mellitus with diabetic nephropathy Status: Acute (5) CKD stage 4 due to type 2 diabetes mellitus Status: Acute (6) Cardiorenal disease Status: Acute (7) ESRD (end stage renal disease) Status: Acute - Assessment and Plan (Free Text) Plan: Dialysis today and MWF Same meds await LTC transfer
--- NOTE | 2017-09-09 12:50 | CP.PCM.PN ---
<Darryl Roe - Last Filed: 09/09/17 12:47> Subjective - Date & Time of Evaluation Date of Evaluation: 09/09/17 Time of Evaluation: 08:29 - Subjective Subjective: Cardiology Progress Note- Dr. Cortés's service Patient seen and examined in no acute distress. No acute events overnight. Patient does not follow commands. He moves his arms and looks from side to side but not in specific response to one's direction or comments. Patient not able to respond to ROS at this time due to his clinical status. Objective - Vital Signs/Intake and Output Vital Signs (last 24 hours): Temp Pulse Resp BP Pulse Ox 98.3 F 93 H 25 H 122/47 L 97 09/09/17 08:00 09/09/17 10:07 09/09/17 10:07 09/09/17 10:07 09/09/17 10:07 Intake and Output: 09/09/17 09/09/17 06:59 18:59 Intake Total 250 Balance 250 - Medications Medications: Current Medications Acetylcysteine (Acetylcysteine 20%) 4 ml INH RQ6 [facility] Last Admin: 09/09/17 07:46 Dose: 4 ml Albuterol/Ipratropium (Duoneb 3 Mg/0.5 Mg (3 Ml) Ud) 3 ml INH RQ6 [facility] Last Admin: 09/09/17 07:46 Dose: 3 ml Apixaban (Eliquis) 2.5 mg PO BID [facility] Last Admin: 09/09/17 09:31 Dose: 2.5 mg Aspirin (Aspirin Chewable) 81 mg PO DAILY [facility] Last Admin: 09/09/17 09:12 Dose: 81 mg Calcium Acetate (Phoslo) 2,001 mg GT TIDCC [facility] Last Admin: 09/09/17 12:44 Dose: 2,001 mg Epoetin Chencho (Procrit) 10,000 unit IV MWF [facility] Famotidine (Pepcid) 20 mg PO DAILY [facility] Last Admin: 09/09/17 09:11 Dose: 20 mg Vancomycin HCl 1 gm/ Sodium (Chloride) 250 mls @ 166.7 mls/hr IVPB MWF [facility] Last Admin: 09/09/17 08:51 Dose: 166.7 mls/hr Insulin Aspart (Novolog) 0 unit SC Q6 [facility] PRN Reason: Protocol Last Admin: 09/09/17 11:51 Dose: 2 unit Insulin Detemir (Levemir) 43 unit SC Q12 [facility] Last Admin: 09/09/17 09:33 Dose: 43 unit Lactobacillus Acidophilus (Bacid Acidophilus) 1 cap PO BID [facility] Last Admin: 09/09/17 09:12 Dose: 1 cap Lisinopril (Zestril) 5 mg PO DAILY [facility] Last Admin: 09/09/17 09:35 Dose: Not Given Metoprolol Tartrate (Lopressor) 50 mg PO BID [facility] Last Admin: 09/09/17 09:34 Dose: Not Given Rosuvastatin Calcium (Crestor) 10 mg PO HS [facility] Last Admin: 08/26/17 22:41 Dose: 10 mg - Labs Labs: 09/09/17 06:04 09/09/17 06:04 PT 13.9 SECONDS (9.7-12.2) H 08/24/17 06:08 INR 1.2 08/24/17 06:08 APTT 55 SECONDS (21-34) H D 08/17/17 06:12 - Constitutional Appears: Non-toxic, No Acute Distress - Head Exam Head Exam: ATRAUMATIC - Eye Exam Eye Exam: EOMI, Normal appearance - ENT Exam ENT Exam: Mucous Membranes Moist - Neck Exam Neck Exam: Full ROM - Respiratory Exam Respiratory Exam: NORMAL BREATHING PATTERN - Cardiovascular Exam Cardiovascular Exam: +S1, +S2 - GI/Abdominal Exam GI & Abdominal Exam: Soft - Extremities Exam Extremities Exam: Full ROM - Back Exam Back Exam: Full ROM - Neurological Exam Neurological Exam: Awake - Psychiatric Exam Psychiatric exam: Flat Affect - Skin Skin Exam: Normal Color, Warm Assessment and Plan (1) Chest pain Status: Acute (2) CHF exacerbation Status: Chronic (3) Pneumonia Status: Acute (4) CAD (coronary artery disease) Status: Chronic (5) HTN (hypertension) Status: Chronic (6) CKD (chronic kidney disease) Status: Chronic (7) Diabetes mellitus Status: Chronic (8) HLD (hyperlipidemia) Status: Chronic (9) Constipation Status: Chronic (10) Anemia Status: Chronic (11) History of DVT (deep vein thrombosis) Status: Acute (12) Prophylactic measure Status: Acute - Assessment and Plan (Free Text) Assessment: Hx of Atrial Flutter Intermittent Likely due to Dobutamine administration which has since been discontinued Amiodarone discontinued; Will monitor to see that patient is rate controlled. On Metoprolol 50 mg PO BID, Eliquis 2.5 mg PO BID CAD, chest pain -No current plans for cardiac cath (acute respiratory failure and elevated Cr) , history of abnormal stress test -Elevated Troponin likely due to chest compressions during cardiac arrest 08/10 -No acute ST changes on EKG -Continue ASA, Crestor, Metoprolol. Plavix discontinued. -Echocardiogram from 08/08/17 showed left ventricle systolic function is severely impaired. EF: 25-30%; global hypokinesis of LV mild AR. MR is moderate. Moderate-severe pulmonary hypertension Systolic CHF exacerbation -CXR 09/09: Diminished bilateral basilar airspace disease; stable cardiomegaly -BNP 23584 on 08/06/17 -Continue ASA, Crestor, Metoprolol -Echocardiogram from 08/08/17 showed left ventricle systolic function is severely impaired. EF: 25-30%; global hypokinesis of LV mild AR. MR is moderate. Moderate-severe pulmonary hypertesnion Dobutamine discontinued in light of atrial flutter-type episodes Diabetes Mellitus ISS Continue to monitor ESRD on HD HD due today On Procrit and Phoslo Nephro on the case Prophylaxis Pepcid 20 mg PO daily Eliquis 2.5 mg PO BID (Renal precautions) Disposition Awaiting Transfer to LTAC Discussed with attending. All management and planning per Dr. Cortés <Sina Cortés - Last Filed: 09/09/17 23:03> Objective - Vital Signs/Intake and Output Vital Signs (last 24 hours): Temp Pulse Resp BP Pulse Ox 98 F 109 H 20 106/61 98 09/09/17 20:22 09/09/17 20:22 09/09/17 20:22 09/09/17 20:22 09/09/17 20:22 Intake and Output: 09/09/17 09/10/17 18:59 06:59 Intake Total 850 Balance 850 - Medications Medications: Current Medications Acetylcysteine (Acetylcysteine 20%) 4 ml INH RQ6 [facility] Last Admin: 09/09/17 19:06 Dose: 4 ml Albuterol/Ipratropium (Duoneb 3 Mg/0.5 Mg (3 Ml) Ud) 3 ml INH RQ6 [facility] Last Admin: 09/09/17 19:06 Dose: 3 ml Apixaban (Eliquis) 2.5 mg PO BID [facility] Last Admin: 09/09/17 17:21 Dose: 2.5 mg Aspirin (Aspirin Chewable) 81 mg PO DAILY [facility] Last Admin: 09/09/17 09:12 Dose: 81 mg Calcium Acetate (Phoslo) 2,001 mg GT TIDCC [facility] Last Admin: 09/09/17 17:21 Dose: 2,001 mg Collagenase (Santyl) 0 gm TOP DAILY [facility] Epoetin Chencho (Procrit) 10,000 unit IV [facility] Last Admin: 09/09/17 16:12 Dose: 10,000 unit Famotidine (Pepcid) 20 mg PO DAILY [facility] Last Admin: 09/09/17 09:11 Dose: 20 mg Vancomycin HCl 1 gm/ Sodium (Chloride) 250 mls @ 166.7 mls/hr IVPB [facility] Last Admin: 09/09/17 08:51 Dose: 166.7 mls/hr Insulin Aspart (Novolog) 0 unit SC Q6 [facility] PRN Reason: Protocol Last Admin: 09/09/17 18:23 Dose: 1 unit Insulin Detemir (Levemir) 43 unit SC Q12 [facility] Last Admin: 09/09/17 22:04 Dose: 43 unit Lactobacillus Acidophilus (Bacid Acidophilus) 1 cap PO BID [facility] Last Admin: 09/09/17 17:21 Dose: 1 cap Lisinopril (Zestril) 5 mg PO DAILY [facility] Last Admin: 09/09/17 09:35 Dose: Not Given Metoprolol Tartrate (Lopressor) 50 mg PO BID [facility] Last Admin: 09/09/17 17:17 Dose: Not Given Rosuvastatin Calcium (Crestor) 10 mg PO HS [facility] Last Admin: 08/26/17 22:41 Dose: 10 mg - Labs Labs: 09/09/17 06:04 09/09/17 06:04 PT 13.9 SECONDS (9.7-12.2) H 08/24/17 06:08 INR 1.2 08/24/17 06:08 APTT 55 SECONDS (21-34) H D 08/17/17 06:12 Assessment and Plan - Assessment and Plan (Free Text) Assessment: Patient seen and evaluated with the medical videographer Plan of care as documented
[2017-09-09] MEDS: Epoetin Alfa 10,000 unit/ml Dialysis IV SCH (16:12)
[2017-09-09] MEDS ORDERED: Bisacodyl 5mg EC Tab PO ONE ×2 (19:38→22:05)
--- NOTE | 2017-09-09 21:53 | CP.PCM.PN ---
<Mariangel Lazar V - Last Filed: 09/09/17 23:14> Objective - Vital Signs/Intake and Output Vital Signs (last 24 hours): Temp Pulse Resp BP Pulse Ox 98 F 109 H 20 106/61 98 09/09/17 20:22 09/09/17 20:22 09/09/17 20:22 09/09/17 20:22 09/09/17 20:22 Intake and Output: 09/09/17 09/10/17 18:59 06:59 Intake Total 850 Balance 850 - Medications Medications: Current Medications Acetylcysteine (Acetylcysteine 20%) 4 ml INH RQ6 [facility] Last Admin: 09/09/17 19:06 Dose: 4 ml Albuterol/Ipratropium (Duoneb 3 Mg/0.5 Mg (3 Ml) Ud) 3 ml INH RQ6 [facility] Last Admin: 09/09/17 19:06 Dose: 3 ml Apixaban (Eliquis) 2.5 mg PO BID [facility] Last Admin: 09/09/17 17:21 Dose: 2.5 mg Aspirin (Aspirin Chewable) 81 mg PO DAILY [facility] Last Admin: 09/09/17 09:12 Dose: 81 mg Calcium Acetate (Phoslo) 2,001 mg GT TIDCC [facility] Last Admin: 09/09/17 17:21 Dose: 2,001 mg Collagenase (Santyl) 0 gm TOP DAILY [facility] Epoetin Chencho (Procrit) 10,000 unit IV MWF [facility] Last Admin: 09/09/17 16:12 Dose: 10,000 unit Famotidine (Pepcid) 20 mg PO DAILY [facility] Last Admin: 09/09/17 09:11 Dose: 20 mg Vancomycin HCl 1 gm/ Sodium (Chloride) 250 mls @ 166.7 mls/hr IVPB MWF [facility] Last Admin: 09/09/17 08:51 Dose: 166.7 mls/hr Insulin Aspart (Novolog) 0 unit SC Q6 [facility] PRN Reason: Protocol Last Admin: 09/09/17 18:23 Dose: 1 unit Insulin Detemir (Levemir) 43 unit SC Q12 [facility] Last Admin: 09/09/17 22:04 Dose: 43 unit Lactobacillus Acidophilus (Bacid Acidophilus) 1 cap PO BID [facility] Last Admin: 09/09/17 17:21 Dose: 1 cap Lisinopril (Zestril) 5 mg PO DAILY [facility] Last Admin: 09/09/17 09:35 Dose: Not Given Metoprolol Tartrate (Lopressor) 50 mg PO BID [facility] Last Admin: 09/09/17 17:17 Dose: Not Given Rosuvastatin Calcium (Crestor) 10 mg PO HS [facility] Last Admin: 08/26/17 22:41 Dose: 10 mg - Labs Labs: 09/09/17 06:04 09/09/17 06:04 PT 13.9 SECONDS (9.7-12.2) H 08/24/17 06:08 INR 1.2 08/24/17 06:08 APTT 55 SECONDS (21-34) H D 08/17/17 06:12 Attending/Attestation - Attestation I have personally seen and examined this patient.: Yes I have fully participated in the care of the patient.: Yes I have reviewed all pertinent clinical information, including history, physical exam and plan: Yes Notes (Text): 09/09/17 23:09 (1) Acute Respiratory Failure ARDS Cardiac Arrest Pulmonary Edema Nonstemi Assessment and Plan: * Code Blue on 08/10: asystole, cardiopulmonary resuscitative measures initiated , requiring 3 epis, bicarbonate, ROSC achieved and intubated and brought to the ICU for further management; Patient in the ICU from 08/10 until present. * Pulmonary: Dr Mena (Dr. Jeffers covering until 09/04/17)-->help appreciated * Cardiology: Dr. Cortés on board-->help appreciated * GI (Dr. Wills) on board-->help appreciated * S/P Tracheostomy 08/22 * S/P Peg tube placement 08/25 * s/p insertion of right posterior chest tube 08/19-->removed 08/24/17 * There was consideration for possible thoracentesis of left side pleural effusion, evaluated by IR, there is no fluid to drain per Dr. Gross * Chest xray (08/26): right arm PICC is seen with the tip of distal subclavian vein. PICC may be used * Per cardiology, * Restart Aspirin 81mg PO daily * Patient does not need Plavix at this time * Recommend for Eliquis 2.5mg PO BID for atrial flutter * 08/27: patient is pending LTAC, he went eventually need cardiac catheterization when he has stabilized. Held statin secondary to elevated LFTs. Discussed with Dr. Cortés, lowered Amiodarone 200mg PO daily * 08/28: patient is pending LTAC, he went eventually need cardiac catheterization when he has stabilized. Liver function tests improving * 08/29: Aircraft Avionics Technician [employer] has sent request to insurance for authorization for LTAC-->pending * 09/06: pending social work/case management approval for LTAC * 09/07: pending social work/case management approval for LTAC * 09/08: Unable to get approval for LTAC; pending other options * 09/09: Transferred from step-down ICU to the floors (2) Abnormal Stress Test History of AICD History of Coronary Artery Disease Assessment and Plan: * Cardiology (Dr. Cortés) on board-->help appreciated * TSH: 1.16; T4: 1.53 * Echocardiogram (08/08/17): left ventricle systolic function is severely impaired. EF: 25-30%; global hypokinesis of left ventricle mild aortic regurgitation. Mitral regurgitation is moderate. Moderate-severe pulmonary hypertension * Plan was for cardiac catheterization; delayed due to acute renal failure; Attempted gentle hydration and mucomyst on 08/09 to optimize prior to cath * On 08/10, patient was in asystole, ACLS protocol, ROSC achieved, intubated and transfered to the ICU. Patient in acute pulmonary edema. * Patient hospitalized in the ICU since 08/10/17 to present. * Medications: * Aspirin 81mg PO daily * Plavix d/c by cardiology * Lopressor 50mg PO bid * d/c Crestor 10mg POqHS secondary to rise in LFTS 08/27--->monitor LFTs daily * ARB d/c secondary to acute renal failure * 08/27: patient is pending LTAC, he went eventually need cardiac catheterization when he has stabilized. Held statin secondary to elevated LFTs. Discussed with Dr. Cortés, lowered Amiodarone 200mg PO daily * 08/28: patient is pending LTAC. He will eventually need cardiac catheterization when he has stabilized. Liver function tests improving. Statin is on hold (3) Atrial flutter Assessment and Plan: * Cardiology (Dr. Cortés) on board-->help appreciated * Refractory to Lopressor/Cardizem IVP * Eliquis 2.5mg PO bid * Amiodarone bolus-->Amiodarine drip on 08/24-->converted to Amiodarone 200mg PO TID on 08/26 and this was decreased to 200 mg 1x/day due to increased LFTs * 08/27: Discussed with Dr. Cortés, will lower Amiodarone 200mg PO daily and monitor LFTs. Statin held and tylenol d/c * 08/29: patient is pending LTAC, he will eventually need cardiac catheterization when he has stabilized. Liver function tests improving. Statin is on hold due to the elevated LFTs * 08/30: Cardiology discontinued the Amiodarone * 09/07: Held eliquis; will need to resume * 09/09: Eliquis resumed, off Amiodarone Status: Acute (4) Acute on Chronic Systolic CHF exacerbation Assessment and Plan: * Cardiology (Dr. Cortés) on board-->help appreciated * Transferred to the ICU on 08/10 following cardiac arrest and intubation. * Echocardiogram (08/08/17): left ventricular systolic function is severely impaired. EF: 25-30%; global hypokinesis of left ventricle mild aortic regurgitation. Mitral regurgitation is moderate. Moderate-severe pulmonary hypertension * Medications: * Aspirin 81mg PO daily * Plavix d/c by cardiology * Lopressor 50mg PO bid * d/c Crestor 10mg POqHS on 08/27 secondary to rise in LFTs * ARB d/c secondary to acute renal failure Status: Acute (5) Leukocytosis Assessment and Plan: * Patient's white count downtrending * Pleural Fluid 08/19/17 did not show any growth * Blood cultures (08/26): no growth X5 days * UA and urine culture (08/27): Urine Culture showed Yeast Species. * Patient has elevated LFTs-->did not start anti-fungal in light of LFTs New: * 09/05/17 Blood: gram positive cocci-->pending speciation * 09/05/17 Blood: no growth after 4 days * 09/07/17 Legionella Culture: negative * 09/07/17 Mycobacteria: negative * 09/07/17 Sputum: Enterocloace Bacter; yeast-->f/u sensitivities * 09/07/17 Blood: negative X 48 hours * 09/07/17 Blood: negative X 48 hours * 09/06: stool culture pending; has not had diarrhea or bowel movement * 09/07: Dr. Zimmer (covering Dr. Lawrence) to see the patient given elevated procalcitonin * IV abx: Vancomycin 1 gram MWF; will need to f/u with ID regarding sputum culture Status: Acute (6) Pneumonia Assessment and Plan: * Pulmonary (Dr. Mena) on board-->help appreciated; Dr. Jeffers covering while Dr. Mena away * Infectious Disease (Dr. Lawrence)-->help appreciated * Chest xray (08/26): right arm PICC is seen with the tip of distal subclavian vein. PICC may be used * Rapid A strep, Influenza A and B studies, Urine Legionella, Mycoplasma studies = Negative * Florastor 250mg PO bid * 08/07/17: +Strep Pneumoniae in the urine * Meropenem 500mg IV Q 8 hours (08/14/17 through 08/18/17) and Zosyn 2.25 mg IV Q6H (08/13/17 through 08/18/17) * Cefepime 1 gm IV Q24H: started on 08/19/17 and was discontinued by ID Dr. Lawrence on 08/30/17: monitor vitals and labs * s/p right posterior chest tube 08/19-08/24 * Sputum Culture 08/19/17 shows No growth * Pleural fluid 08/19/17: No growth * 09/07/17 Sputum: Enterocloace Bacter; yeast-->f/u sensitivities * IV abx: Vancomycin 1 gram MWF; will need to f/u with ID regarding sputum culture Status: Acute (7) HTN (hypertension) Assessment and Plan: * Lopressor 50mg PO bid * Lisinopril 5mg PO daily Status: Chronic (8) CKD (chronic kidney disease) on Dialysis Assessment and Plan: * Dr. Miranda (nephrology) consulted on the case * Hx of CKD-->Started on dialysis 08/15/17 * Kurtis catheter placed and removed 08/22 * s/p Right Chest Permcath 08/22 * Patient is on dialysis; oliguric * Phoslo 1334mg GT TID * Epoetin 10,000 unit IV MWF Status: Acute (9) Diabetes mellitus Assessment and Plan: * Accuchecks Q6H * HgbA1c 8.4 * Started peg feedings on 08/26/17 * Nepro-->50 ml/hour (10) HLD (hyperlipidemia) Assessment and Plan: * 08/27: held Crestor 10 mg PO HS secondary to rise in LFTs * 08/29: Liver function tests improving; waiting to restart statin Status: Chronic (11) Anemia Assessment and Plan: * Heme-oncology (Dr. Giles bender) on board-->help appreciated * Likely iron deficiency anemia based on prior admissions * Ferritin 27.4, Iron 22, TIBC 322, % Saturation 7 * Ferric Sodium Gluconate 125mg IVPB daily (active 08/08-08/16) * Procrit 10,000 units M-W- * Monitor Hgb/Hct: stable Status: Chronic (12) History of DVT (deep vein thrombosis) Assessment and Plan: * Patient was previously on Eliquis for a prior history of DVT. * Repeat dopplers 08/09/17 are negative for DVT * Off Heparin Drip 08/17/17 * Started Eliquis 2.5mg PO BID for atrial flutter and history of DVT Status: Chronic (13) UTI Assessment and Plan: * Infectious disease (Dr. Lawrence) on board-->help appreciated * Exchange jaquez out and repeat urine cultures * Urine Culture 08/12/17 showed Gram Negative Rods: NO identification and NO sensitivities were performed * Meropenem 500mg IV Q 12hours (active since 08/14/17 through 08/18/17) to cover for UTI per ID * Repeat Urine Culture 08/18/17 shows NO growth * 08/25: reculture in light of leukocytosis * 08/27: pending urine studies * 08/30: Urine Culture 08/27/17 showed Yeast Species but no antifungal secondary to recent history of Elevated LFTs Status: Chronic (14) Confusion; Alzheimer's Dementia Assessment and Plan: * Per daughter, patient has been getting bouts of confusion over the past year but appears at baseline. Patient has not seen formal neurology as outpatient per daughter. Per , prior to event, noted Alzheimers' disease dx one year ago * CT head w/o contrast (08/10/17):acute os subacute lacune infarct is not excluded in the left basal ganglia inferiorly with definitive chronic lacune identified in the right basal ganglia superiorly. No acute or subacute lobar brain infarction is appreciable by standard CT criteria. Mild age-related neuro degenerative changes are identifed. 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 No changes to dimensions at this time. Also, pt favoring Left side of head and has developed a 1x1 serous filled blister on his left ear. Primary nurse placed duoderm on the ear. Wound care nurse left duoderm in place , and recommends leaving it on until it falls off on its own. Pt has been NPO for several days, new peg inserted yesterday. Will be starting glucerna tube feedings later today. Albumin 3.3 * Turn q 2 hours * medihoney on unstageable ulcer * duoderm on left ear aurical ulcer * 09/02/17: examined with Wound Care Nurse Emeka Samuel and periphery of the Sacral Wound is pink with some bleeding however center is still black and therefore still unstageable. Continue spray with Cavelon followed by thick coating with MediHoney followed by covering with OptiFoam once a day. * 09/03/17: Change of sacral ulcer dressing was performed by me with assitance from Nurse Lyman * 09/04/17: 09/03/17: Change of sacral ulcer dressing was performed by me with assistance from ALEXANDRA Unger * Per wound care note (09/07): sacral ulcer is stable per wound care nurse Status: Acute (16) Elevated LFTs Assessment and Plan: * 08/27: Yina * Discussed with cardiology-->changed amiodarone 200mg PO tid to amiodaron 200mg PO daily * D/C tylenol * Held Statin * patient is also on Rocephin to cover for pneumonia * Will not start antifungal * 08/29: starting to down trending since change in amiodarone dose; awaiting to restart statin * 08/30: continues to trend down. Amiodarone was discontinued * 09/01: AST, ALT, Alk Phos still elevated but stable * 09/02: AST, ALT, Alk Phos still elevated but stable * 09/03: LFTs stable * 09/04: LFTs stable Status: Acute (17). Hx Constipation * Monitor bowel movement * Patient is given Ducolax--f/u Bowel movement (18). Prophylactic measure Assessment and Plan: * Pepcid 20mg PO daily * Start Eliquis 2.5mg PO BID * s/p peg placement 08/25 * s/p trachesostomy 08/22 * s/p Permcath placement 08/22 removal Kurtis catheter * s/p right posterior chest tube 08/19-->removed 08/24 * s/p Right Arm PICC 08/26 * (Jovita Serrano): -->number provided to the nurse- ->consented for peg placement; discussed about LTAC 08/26 * I spoke with MARIAJOSE Figueroa regarding patient's hospitalization up until this point 08/2609/01/17: Dr. Cullen Barth spoke with the patient's [place] with the assistance of Nurse Campos on 3 tower (as multiple attempts of using Purpluemand indicated that all of the [place] translators were busy) and explained all of the patient's diagnosises. 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 Her ultimate wish is to take patient to [facility] where their children live. I explained to patient that I would not know how that would be coordinated but that the Social Workers/Motor Vehicle Escort Driver at LTAC may be of assistance in this regard. I also informed her that I am not aware of any insurance company that would finance this request. She understands that the patient is awaiting insurance approval for LTAC. 09/01/17 and 09/02/17: Dr. Cullen Barth spoke with Spike [employer] Demet[employer] and we are still awaiting insurance authorization for LTAC placement. 09/05/17: Spoke with [facility] licensed social worker, wean trials sent to LTAC pending approval no word yet regarding approval. Ordered for repeat cultures given uptrend in white count. 09/06/17: pending repeat cultures in light of elevated procalcitonin; ID recommended to reculture. Note: patients PICC lined had clogged ports. Red port remains clogged in spite of cath rafaela. Blue port improved after cath rafaela. Possible may need to remove line to r/o infected line. Strong suspicion due to patient's pneumonia given he has thick secretions. 09/07/17: Infectious disease. pending repeat cultures in light of elevated procalcitonin; Note: patients PICC lined had clogged ports. Red port remains clogged in spite of cath rafaela. Blue port improved after cath rafaela. Hip xray negative for acute fracture. There are no noted falls. 09/08/17: Patient denied for LTAC; awaiting for other options from case management/social work. Resident Daniel spoke with Dr. Cortés, patient be transferred under regular bed, when bed is available. Infectious disease on board; Patient started on IV Vancomycin in light of + blood culture. Pending chest xray. 09/09/17: Patient denied for LTAC; awaiting for other options from case management/social work with kamlesh verdin support. Patient started on IV Vancomycin MWF in light of + blood culture. Pending chest xray. F/U sputum with ID. f/u latest blood cultures. <Tangela Sanchez - Last Filed: 09/09/17 23:50> Subjective - Date & Time of Evaluation Date of Evaluation: 09/09/17 Time of Evaluation: 21:50 - Subjective Subjective: Progress note for Dr. Lazar Patient seen and examined at bedside. Patient seems less active today than yesterday. Patient was switched to regular bed from telemetry yesterday, pending available bed. No acute events overnight per nursing staff. Patient unable to verbalize for the review of systems Objective - Vital Signs/Intake and Output Vital Signs (last 24 hours): Temp Pulse Resp BP Pulse Ox 98 F 109 H 20 106/61 98 09/09/17 20:22 09/09/17 20:22 09/09/17 20:22 09/09/17 20:22 09/09/17 20:22 Intake and Output: 09/09/17 09/10/17 18:59 06:59 Intake Total 850 Balance 850 - Medications Medications: Current Medications Acetylcysteine (Acetylcysteine 20%) 4 ml INH RQ6 [facility] Last Admin: 09/09/17 19:06 Dose: 4 ml Albuterol/Ipratropium (Duoneb 3 Mg/0.5 Mg (3 Ml) Ud) 3 ml INH RQ6 [facility] Last Admin: 09/09/17 19:06 Dose: 3 ml Apixaban (Eliquis) 2.5 mg PO BID [facility] Last Admin: 09/09/17 17:21 Dose: 2.5 mg Aspirin (Aspirin Chewable) 81 mg PO DAILY [facility] Last Admin: 09/09/17 09:12 Dose: 81 mg Calcium Acetate (Phoslo) 2,001 mg GT TIDCC [facility] Last Admin: 09/09/17 17:21 Dose: 2,001 mg Epoetin Chencho (Procrit) 10,000 unit IV MWF [facility] Last Admin: 09/09/17 16:12 Dose: 10,000 unit Famotidine (Pepcid) 20 mg PO DAILY [facility] Last Admin: 09/09/17 09:11 Dose: 20 mg Vancomycin HCl 1 gm/ Sodium (Chloride) 250 mls @ 166.7 mls/hr IVPB MWF [facility] Last Admin: 09/09/17 08:51 Dose: 166.7 mls/hr Insulin Aspart (Novolog) 0 unit SC Q6 [facility] PRN Reason: Protocol Last Admin: 09/09/17 18:23 Dose: 1 unit Insulin Detemir (Levemir) 43 unit SC Q12 [facility] Last Admin: 09/09/17 09:33 Dose: 43 unit Lactobacillus Acidophilus (Bacid Acidophilus) 1 cap PO BID [facility] Last Admin: 09/09/17 17:21 Dose: 1 cap Lisinopril (Zestril) 5 mg PO DAILY [facility] Last Admin: 09/09/17 09:35 Dose: Not Given Metoprolol Tartrate (Lopressor) 50 mg PO BID [facility] Last Admin: 09/09/17 17:17 Dose: Not Given Rosuvastatin Calcium (Crestor) 10 mg PO HS [facility] Last Admin: 08/26/17 22:41 Dose: 10 mg - Labs Labs: 09/09/17 06:04 09/09/17 06:04 PT 13.9 SECONDS (9.7-12.2) H 08/24/17 06:08 INR 1.2 08/24/17 06:08 APTT 55 SECONDS (21-34) H D 08/17/17 06:12 - Constitutional Appears: Non-toxic - Head Exam Head Exam: NORMAL INSPECTION Additional comments: left ear has ulcer treated by wound care. dressing intact - Eye Exam Eye Exam: EOMI - ENT Exam ENT Exam: Mucous Membranes Moist - Neck Exam Neck Exam: Full ROM. absent: Tenderness - Respiratory Exam Respiratory Exam: NORMAL BREATHING PATTERN. absent: Accessory Muscle Use - Cardiovascular Exam Cardiovascular Exam: REGULAR RHYTHM, +S1, +S2. absent: Bradycardia, Tachycardia - GI/Abdominal Exam GI & Abdominal Exam: Soft Additional comments: PEG tube in place area surrounding PEG tube, no signs of erythema, purulence, induration - Extremities Exam Extremities Exam: absent: Full ROM, Pedal Edema - Neurological Exam Neurological Exam: Awake - Psychiatric Exam Psychiatric exam: Normal Affect, Normal Mood - Skin Skin Exam: Warm Additional comments: Patient has a sacral ulcer with eschar in center. Assessment and Plan - Assessment and Plan (Free Text) Assessment: Acute Respiratory Failure, patient has a trach and saturating well on room air. ARDS, Cardiac Arrest, Pulmonary Edema, NSTEMI 08/27: patient is pending LTAC, he went eventually need cardiac catheterization when he has stabilized. Per cardiology consult, lowered Amiodarone 200mg PO daily due to elevated LFTs, statin also held 09/08: Unable to get approval for LTAC; pending other options Abnormal Stress Test History of AICD History of Coronary Artery Disease Cardiology Consult Dr. Cortés TSH: 1.16; T4: 1.53 08/08 Echo: EF: 25-30% global hypokinesis of left ventricle mild aortic regurgitation. moderate Mitral regurgitation. Moderate-severe pulmonary hypertension original plan for cardiac catheterization was delayed because of acute Renal failure. Gentle hydration and mucomyst on 08/09 to optimize prior to cath On 08/10, patient was in asystole, ACLS protocol, ROSC achieved, intubated and transferred to the ICU. Atrial flutter Cardiology consult: Dr. Cortés Refractory to Lopressor/Cardizem IVP Eliquis 2.5mg PO bid Amiodarone bolus-->Amiodarine drip on 08/24-->converted to Amiodarone 200mg PO TID on 08/26 08/27: lowered Amiodarone 200mg PO daily and monitor LFTs. Statin held and tylenol d/c 08/29: patient is pending LTAC, he will eventually need cardiac catheterization when he has stabilized. Liver function tests improving. Statin is on hold due to the elevated LFTs 08/30: Cardiology discontinued the Amiodarone (d/t elevated LFTs) 09/07: Held eliquis Acute on Chronic Systolic CHF exacerbation Cardiology consult Dr. Cortés 08/10 Transferred to the ICU after cardiac arrest, CPR, ROSC and intubation. 08/08 Echo: left ventricular systolic function is severely impaired. EF: 25-30%; global hypokinesis of left ventricle mild aortic regurgitation. Mitral regurgitation is moderate. Moderate-severe pulmonary hypertension Medications: Aspirin 81mg PO daily, Plavix d/c by cardiology, Lopressor 50mg PO bid, d/c Crestor 10mg POqHS on 08/27 secondary to rise in LFTs, ARB d/c secondary to acute renal failure Leukocytosis 08/19 Pleural Fluid no growth 08/26 Blood cultures After 48hours - no growth 08/27 UA and urine culture: Urine Culture showed Yeast Species, but were unable to start anti-fungals due to elevated LFTs Reculture Urine, Blood, and Stool should the WBC continue to trend up 09/06: stool culture pending; has not had diarrhea or bowel movement 09/07: Dr. Zimmer on board to cover for Dr. Lawrencepatient recultured 2 days prior Repeat Sputum cultures done due to increase in WBC: enterobactor cloacae f/u Dr. Zimmer's recommendations Pneumonia Pulmonary Consult Dr. Mena with Dr. Jeffers covering Infectious Disease Consult Dr. Lawrence 08/26 CXR confirms placement of Right PICC Rapid A strep, Influenza A and B studies, Urine Legionella, Mycoplasma studies = Negative Florastor 250mg PO bid 08/07/17: +Strep Pneumoniae in the urine Meropenem 500mg IV Q 8 hours (08/14/17 through 08/18/17) and Zosyn 2.25 mg IV Q6H (08/13/17 through 08/18/17) Cefepime 1 gm IV Q24H: started on 08/19/17 and was discontinued by ID Dr. Lawrence on 08/30/17: monitor vitals and labs 08/19-08/24 right posterior chest tube 08/19 Sputum Culture shows No growth 08/19 Pleural fluid: No growth 09/08 Repeat Sputum cultures done due to increase in WBC: enterobactor cloacae f/u Dr. Zimmer's recommendations HTN (hypertension) Lopressor 50mg PO bid Hx CKD. Patient is on Dialysis, oliguric Nephrology consult: Dr. Miranda 08/15 started on dialysis Kurtis catheter placed and removed 08/22 s/p Right Chest Permcath 07/30 Phoslo 1334mg GT TID Epoetin 10,000 unit IV MWF 09/03: Hyponatremia noted and is trending back up Diabetes mellitus, monitor carbohydrate intake Accuchecks Q6H HgbA1c 8.4 08/26 Started peg feedings, nepro at 50 ml/hour HLD (hyperlipidemia) 08/27: held Crestor 10 mg PO HS secondary to rise in LFTs 08/29: Liver function tests improving; waiting to restart statin Anemia Heme-oncology Consult Dr. Giles Bender: Ferritin 27.4, Iron 22, TIBC 322, % Saturation 7, likely iron deficiency anemia based on prior admissions Ferric Sodium Gluconate 125mg IVPB daily (active 08/08-08/16) Procrit 10,000 units MWF Monitor CBCs Hx DVT (deep vein thrombosis) Patient was previously on Eliquis for a prior history of DVT. Repeat dopplers 08/09/17 are negative for DVT Off Heparin Drip 08/17/17 Started Eliquis 2.5mg PO BID for atrial flutter and history of DVT UTI Infectious disease Dr. Lawrence with Dr. Zimmer covering. 08/12 Urine Culture showed Gram Negative Rods: NO identification and NO sensitivities were performed Meropenem 500mg IV Q 12hours (08/14-08/18) D Repeat Urine Culture 08/18/17 shows NO growth 08/25: recultured 08/27: pending urine studies 08/30: Urine Culture 08/27/17 showed Yeast Species but no antifungal secondary to recent history of Elevated LFTs Confusion; Alzheimer's Dementia, patient is currently nonverbal Per daughter, patient has been getting bouts of confusion over the past year, but this is his baseline. Patient never saw neurologist formally in outpatient care. 2015 Alzheimers' disease diagnosed in patient 08/10 CT head w/o contrast: acute os subacute lacunar infarct is not excluded in the left inferior basal ganglia with definitive chronic lacunae identified in the superior right basal ganglia. No acute or subacute lobar infarcts. Mild age-related neuro degenerative changes are identifed. No acute intracranial hemorrhage or mass is identified throughout 08/26: Off Sedation, patient is observed to move extremities without following directions 09/09: Patient continues to smile sporadically or have flat affect at times of visit. 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 treatment:medihoney on unstageable ulcer and duoderm on left ear aurical ulcer 09/02/17: examined with Wound Care Nurse Emeka Samuel and periphery of the Sacral Wound is pink with some bleeding however center is still black and therefore still unstageable. Continue spray with [place] followed by thick coating with MediHoney followed by covering with OptiFoam once a day. 09/09: santyl ordered to be placed on black eschar center. consider scoring the wound prior to santyl addition to allow for better penetrance of the thick tissue. Elevated LFTs, stable 08/27: elevated LFTs. Discussed with cardiology and decreased Amiodarone 200mg POTID to POQD, Tyelenol was discontinued, statin was held 08/29: starting to down trending since change in amiodarone dose; awaiting to restart statin 08/30: Admiodarone discontinued. LFT trending down. 09/01 - 09/02: AST, ALT, Alk Phos still elevated but stable 09/03-present: LFTs stable Hx Constipation continue to monitor BM Prophylaxis Pepcid 20mg PO daily Eliquis 2.5mg PO BID, on hold SCDs PT eval and treat Contacts: (Jovita Serrano): consented for peg placement 08/26 was contacted and informed about LTAC Dr. Pickard, PMD is aware of patient's hospitalization up until this point 08/[address] Nagi Sanchez, DO PGY1
[2017-09-10] MEDS: (Novolog) Insulin Aspart, Recombinant 100 u/ml 10 ml vial SC SCH ×4 (00:25→17:42)
--- NOTE | 2017-09-10 00:50 | CP.PCM.PN ---
<Danni Almaraz - Last Filed: 09/10/17 00:48> Subjective - Date & Time of Evaluation Date of Evaluation: 09/10/17 Time of Evaluation: 00:48 - Subjective Subjective: Medicine Note for Dr. Lazar Patient seen and examined at bedside. Patient resting comfortably in bed. No acute complaints. Objective - Vital Signs/Intake and Output Vital Signs (last 24 hours): Temp Pulse Resp BP Pulse Ox 98.7 F 98 H 20 110/57 L 97 09/09/17 23:07 09/09/17 23:07 09/09/17 23:07 09/09/17 23:07 09/09/17 23:07 Intake and Output: 09/09/17 09/10/17 18:59 06:59 Intake Total 850 Balance 850 - Medications Medications: Current Medications Acetylcysteine (Acetylcysteine 20%) 4 ml INH RQ6 [facility] Last Admin: 09/09/17 19:06 Dose: 4 ml Albuterol/Ipratropium (Duoneb 3 Mg/0.5 Mg (3 Ml) Ud) 3 ml INH RQ6 [facility] Last Admin: 09/09/17 19:06 Dose: 3 ml Apixaban (Eliquis) 2.5 mg PO BID [facility] Last Admin: 09/09/17 17:21 Dose: 2.5 mg Aspirin (Aspirin Chewable) 81 mg PO DAILY [facility] Last Admin: 09/09/17 09:12 Dose: 81 mg Calcium Acetate (Phoslo) 2,001 mg GT TIDCC [facility] Last Admin: 09/09/17 17:21 Dose: 2,001 mg Collagenase (Santyl) 0 gm TOP DAILY [facility] Epoetin Chencho (Procrit) 10,000 unit IV MWF [facility] Last Admin: 09/09/17 16:12 Dose: 10,000 unit Famotidine (Pepcid) 20 mg PO DAILY [facility] Last Admin: 09/09/17 09:11 Dose: 20 mg Vancomycin HCl 1 gm/ Sodium (Chloride) 250 mls @ 166.7 mls/hr IVPB MWF [facility] Last Admin: 09/09/17 08:51 Dose: 166.7 mls/hr Insulin Aspart (Novolog) 0 unit SC Q6 [facility] PRN Reason: Protocol Last Admin: 09/10/17 00:25 Dose: Not Given Insulin Detemir (Levemir) 43 unit SC Q12 [facility] Last Admin: 09/09/17 22:04 Dose: 43 unit Lactobacillus Acidophilus (Bacid Acidophilus) 1 cap PO BID [facility] Last Admin: 09/09/17 17:21 Dose: 1 cap Lisinopril (Zestril) 5 mg PO DAILY [facility] Last Admin: 09/09/17 09:35 Dose: Not Given Metoprolol Tartrate (Lopressor) 50 mg PO BID [facility] Last Admin: 09/09/17 17:17 Dose: Not Given Rosuvastatin Calcium (Crestor) 10 mg PO HS [facility] Last Admin: 08/26/17 22:41 Dose: 10 mg - Labs Labs: 09/09/17 06:04 09/09/17 06:04 PT 13.9 SECONDS (9.7-12.2) H 08/24/17 06:08 INR 1.2 08/24/17 06:08 APTT 55 SECONDS (21-34) H D 08/17/17 06:12 - Additional Findings Additional findings: - Constitutional Appears: Non-toxic - Head Exam Head Exam: NORMAL INSPECTION Additional comments: left ear has ulcer treated by wound care. dressing intact - Eye Exam Eye Exam: EOMI - ENT Exam ENT Exam: Mucous Membranes Moist - Neck Exam Neck Exam: Full ROM. absent: Tenderness - Respiratory Exam Respiratory Exam: NORMAL BREATHING PATTERN. absent: Accessory Muscle Use - Cardiovascular Exam Cardiovascular Exam: REGULAR RHYTHM, +S1, +S2. absent: Bradycardia, Tachycardia - GI/Abdominal Exam GI & Abdominal Exam: Soft Additional comments: PEG tube in place area surrounding PEG tube, no signs of erythema, purulence, induration - Extremities Exam Extremities Exam: absent: Full ROM, Pedal Edema - Neurological Exam Neurological Exam: Awake - Psychiatric Exam Psychiatric exam: Normal Affect, Normal Mood - Skin Skin Exam: Warm Additional comments: Patient has a sacral ulcer with eschar in center. Assessment and Plan - Assessment and Plan (Free Text) Plan: (1) Acute Respiratory Failure ARDS Cardiac Arrest Pulmonary Edema Nonstemi Assessment and Plan: * Code Blue on 08/10: asystole, cardiopulmonary resuscitative measures initiated , requiring 3 epis, bicarbonate, ROSC achieved and intubated and brought to the ICU for further management; Patient in the ICU from 08/10 until present. * Pulmonary: Dr Mena (Dr. Jeffers covering until 09/04/17)-->help appreciated * Cardiology: Dr. Cortés on board-->help appreciated * GI (Dr. Wills) on board-->help appreciated * S/P Tracheostomy 08/22 * S/P Peg tube placement 08/25 * s/p insertion of right posterior chest tube 08/19-->removed 08/24/17 * There was consideration for possible thoracentesis of left side pleural effusion, evaluated by IR, there is no fluid to drain per Dr. Gross * Chest xray (08/26): right arm PICC is seen with the tip of distal subclavian vein. PICC may be used * Per cardiology, * Restart Aspirin 81mg PO daily * Patient does not need Plavix at this time * Recommend for Eliquis 2.5mg PO BID for atrial flutter * 08/27: patient is pending LTAC, he went eventually need cardiac catheterization when he has stabilized. Held statin secondary to elevated LFTs. Discussed with Dr. Cortés, lowered Amiodarone 200mg PO daily * 08/28: patient is pending LTAC, he went eventually need cardiac catheterization when he has stabilized. Liver function tests improving * 08/29: Prn Occupational Therapist Nehal has sent request to insurance for authorization for LTAC-->pending * 09/06: pending social work/case management approval for LTAC * 09/07: pending social work/case management approval for LTAC * 09/08: Unable to get approval for LTAC; pending other options * 09/09: Transferred from step-down ICU to the floors (2) Abnormal Stress Test History of AICD History of Coronary Artery Disease Assessment and Plan: * Cardiology (Dr. Cortés) on board-->help appreciated * TSH: 1.16; T4: 1.53 * Echocardiogram (08/08/17): left ventricle systolic function is severely impaired. EF: 25-30%; global hypokinesis of left ventricle mild aortic regurgitation. Mitral regurgitation is moderate. Moderate-severe pulmonary hypertension * Plan was for cardiac catheterization; delayed due to acute renal failure; Attempted gentle hydration and mucomyst on 08/09 to optimize prior to cath * On 08/10, patient was in asystole, ACLS protocol, ROSC achieved, intubated and transfered to the ICU. Patient in acute pulmonary edema. * Patient hospitalized in the ICU since 08/10/17 to present. * Medications: * Aspirin 81mg PO daily * Plavix d/c by cardiology * Lopressor 50mg PO bid * d/c Crestor 10mg POqHS secondary to rise in LFTS 08/27--->monitor LFTs daily * ARB d/c secondary to acute renal failure * 08/27: patient is pending LTAC, he went eventually need cardiac catheterization when he has stabilized. Held statin secondary to elevated LFTs. Discussed with Dr. Cortés, lowered Amiodarone 200mg PO daily * 08/28: patient is pending LTAC. He will eventually need cardiac catheterization when he has stabilized. Liver function tests improving. Statin is on hold (3) Atrial flutter Assessment and Plan: * Cardiology (Dr. Cortés) on board-->help appreciated * Refractory to Lopressor/Cardizem IVP * Eliquis 2.5mg PO bid * Amiodarone bolus-->Amiodarine drip on 08/24-->converted to Amiodarone 200mg PO TID on 08/26 and this was decreased to 200 mg 1x/day due to increased LFTs * 08/27: Discussed with Dr. oCrtés, will lower Amiodarone 200mg PO daily and monitor LFTs. Statin held and tylenol d/c * 08/29: patient is pending LTAC, he will eventually need cardiac catheterization when he has stabilized. Liver function tests improving. Statin is on hold due to the elevated LFTs * 08/30: Cardiology discontinued the Amiodarone * 09/07: Held eliquis; will need to resume * 09/09: Eliquis resumed, off Amiodarone Status: Acute (4) Acute on Chronic Systolic CHF exacerbation Assessment and Plan: * Cardiology (Dr. Cortés) on board-->help appreciated * Transferred to the ICU on 08/10 following cardiac arrest and intubation. * Echocardiogram (08/08/17): left ventricular systolic function is severely impaired. EF: 25-30%; global hypokinesis of left ventricle mild aortic regurgitation. Mitral regurgitation is moderate. Moderate-severe pulmonary hypertension * Medications: * Aspirin 81mg PO daily * Plavix d/c by cardiology * Lopressor 50mg PO bid * d/c Crestor 10mg POqHS on 08/27 secondary to rise in LFTs * ARB d/c secondary to acute renal failure Status: Acute (5) Leukocytosis Assessment and Plan: * Patient's white count downtrending * Pleural Fluid 08/19/17 did not show any growth * Blood cultures (08/26): no growth X5 days * UA and urine culture (08/27): Urine Culture showed Yeast Species. * Patient has elevated LFTs-->did not start anti-fungal in light of LFTs New: * 09/05/17 Blood: gram positive cocci-->pending speciation * 09/05/17 Blood: no growth after 4 days * 09/07/17 Legionella Culture: negative * 09/07/17 Mycobacteria: negative * 09/07/17 Sputum: Enterocloace Bacter; yeast-->f/u sensitivities * 09/07/17 Blood: negative X 48 hours * 09/07/17 Blood: negative X 48 hours * 09/06: stool culture pending; has not had diarrhea or bowel movement * 09/07: Dr. Zimmer (covering Dr. Lawrence) to see the patient given elevated procalcitonin * IV abx: Vancomycin 1 gram MWF; will need to f/u with ID regarding sputum culture Status: Acute (6) Pneumonia Assessment and Plan: * Pulmonary (Dr. Mena) on board-->help appreciated; Dr. Jeffers covering while Dr. Mena away * Infectious Disease (Dr. Lawrence)-->help appreciated * Chest xray (08/26): right arm PICC is seen with the tip of distal subclavian vein. PICC may be used * Rapid A strep, Influenza A and B studies, Urine Legionella, Mycoplasma studies = Negative * Florastor 250mg PO bid * 08/07/17: +Strep Pneumoniae in the urine * Meropenem 500mg IV Q 8 hours (08/14/17 through 08/18/17) and Zosyn 2.25 mg IV Q6H (08/13/17 through 08/18/17) * Cefepime 1 gm IV Q24H: started on 08/19/17 and was discontinued by ID Dr. Lawrence on 08/30/17: monitor vitals and labs * s/p right posterior chest tube 08/19-08/24 * Sputum Culture 08/19/17 shows No growth * Pleural fluid 08/19/17: No growth * 09/07/17 Sputum: Enterocloace Bacter; yeast-->f/u sensitivities * IV abx: Vancomycin 1 gram MWF; will need to f/u with ID regarding sputum culture Status: Acute (7) HTN (hypertension) Assessment and Plan: * Lopressor 50mg PO bid * Lisinopril 5mg PO daily Status: Chronic (8) CKD (chronic kidney disease) on Dialysis Assessment and Plan: * Dr. Miranda (nephrology) consulted on the case * Hx of CKD-->Started on dialysis 08/15/17 * Kurtis catheter placed and removed 08/22 * s/p Right Chest Permcath 08/22 * Patient is on dialysis; oliguric * Phoslo 1334mg GT TID * Epoetin 10,000 unit IV MWF Status: Acute (9) Diabetes mellitus Assessment and Plan: * Accuchecks Q6H * HgbA1c 8.4 * Started peg feedings on 08/26/17 * Nepro-->50 ml/hour (10) HLD (hyperlipidemia) Assessment and Plan: * 08/27: held Crestor 10 mg PO HS secondary to rise in LFTs * 08/29: Liver function tests improving; waiting to restart statin Status: Chronic (11) Anemia Assessment and Plan: * Heme-oncology (Dr. Giles bender) on board-->help appreciated * Likely iron deficiency anemia based on prior admissions * Ferritin 27.4, Iron 22, TIBC 322, % Saturation 7 * Ferric Sodium Gluconate 125mg IVPB daily (active 08/08-08/16) * Procrit 10,000 units M-W- * Monitor Hgb/Hct: stable Status: Chronic (12) History of DVT (deep vein thrombosis) Assessment and Plan: * Patient was previously on Eliquis for a prior history of DVT. * Repeat dopplers 08/09/17 are negative for DVT * Off Heparin Drip 08/17/17 * Started Eliquis 2.5mg PO BID for atrial flutter and history of DVT Status: Chronic (13) UTI Assessment and Plan: * Infectious disease (Dr. Lawrence) on board-->help appreciated * Exchange jaquez out and repeat urine cultures * Urine Culture 08/12/17 showed Gram Negative Rods: NO identification and NO sensitivities were performed * Meropenem 500mg IV Q 12hours (active since 08/14/17 through 08/18/17) to cover for UTI per ID * Repeat Urine Culture 08/18/17 shows NO growth * 08/25: reculture in light of leukocytosis * 08/27: pending urine studies * 08/30: Urine Culture 08/27/17 showed Yeast Species but no antifungal secondary to recent history of Elevated LFTs Status: Chronic (14) Confusion; Alzheimer's Dementia Assessment and Plan: * Per daughter, patient has been getting bouts of confusion over the past year but appears at baseline. Patient has not seen formal neurology as outpatient per daughter. Per , prior to event, noted Alzheimers' disease dx one year ago * CT head w/o contrast (08/10/17):acute os subacute lacune infarct is not excluded in the left basal ganglia inferiorly with definitive chronic lacune identified in the right basal ganglia superiorly. No acute or subacute lobar brain infarction is appreciable by standard CT criteria. Mild age-related neuro degenerative changes are identifed. 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 No changes to dimensions at this time. Also, pt favoring Left side of head and has developed a 1x1 serous filled blister on his left ear. Primary nurse placed duoderm on the ear. Wound care nurse left duoderm in place , and recommends leaving it on until it falls off on its own. Pt has been NPO for several days, new peg inserted yesterday. Will be starting glucerna tube feedings later today. Albumin 3.3 * Turn q 2 hours * medihoney on unstageable ulcer * duoderm on left ear aurical ulcer * 09/02/17: examined with Wound Care Nurse Emeka Samuel and periphery of the Sacral Wound is pink with some bleeding however center is still black and therefore still unstageable. Continue spray with Cavelon followed by thick coating with MediHoney followed by covering with OptiFoam once a day. * 09/03/17: Change of sacral ulcer dressing was performed by me with assitance from Nurse Esmer * 09/04/17: 09/03/17: Change of sacral ulcer dressing was performed by me with assistance from ALEXANDRA Unger * Per wound care note (09/07): sacral ulcer is stable per wound care nurse Status: Acute (16) Elevated LFTs Assessment and Plan: * 08/27: Yina * Discussed with cardiology-->changed amiodarone 200mg PO tid to amiodaron 200mg PO daily * D/C tylenol * Held Statin * patient is also on Rocephin to cover for pneumonia * Will not start antifungal * 08/29: starting to down trending since change in amiodarone dose; awaiting to restart statin * 08/30: continues to trend down. Amiodarone was discontinued * 09/01: AST, ALT, Alk Phos still elevated but stable * 09/02: AST, ALT, Alk Phos still elevated but stable * 09/03: LFTs stable * 09/04: LFTs stable Status: Acute (17). Hx Constipation * Monitor bowel movement * Patient is given Ducolax--f/u Bowel movement (18). Prophylactic measure Assessment and Plan: * Pepcid 20mg PO daily * Start Eliquis 2.5mg PO BID * s/p peg placement 08/25 * s/p trachesostomy 08/22 * s/p Permcath placement 08/22 removal Kurtis catheter * s/p right posterior chest tube 08/19-->removed 08/24 * s/p Right Arm PICC 08/26 * (Jovita Serrano): -->number provided to the nurse- ->consented for peg placement; discussed about LTAC 08/26 * I spoke with Dr. Pickard, MARIAJOSE regarding patient's hospitalization up until this point 08/2609/01/17: Dr. Cullen Barth spoke with the patient's [place] with the assistance of Nurse Campos on 3 tower (as multiple attempts of using InDandreasd indicated that all of the [place] translators were busy) and explained all of the patient's diagnosises. 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 Her ultimate wish is to take patient to [facility] where their children live. I explained to patient that I would not know how that would be coordinated but that the Social Workers/Press Department Manager at LTAC may be of assistance in this regard. I also informed her that I am not aware of any insurance company that would finance this request. She understands that the patient is awaiting insurance approval for LTAC. 09/01/17 and 09/02/17: Dr. Cullen Barth spoke with Painting Contractor Demetria and we are still awaiting insurance authorization for LTAC placement. 09/05/17: Spoke with [facility]hal social media marketing manager, wean trials sent to LTAC pending approval no word yet regarding approval. Ordered for repeat cultures given uptrend in white count. 09/06/17: pending repeat cultures in light of elevated procalcitonin; ID recommended to reculture. Note: patients PICC lined had clogged ports. Red port remains clogged in spite of cath rafaela. Blue port improved after cath rafaela. Possible may need to remove line to r/o infected line. Strong suspicion due to patient's pneumonia given he has thick secretions. 09/07/17: Infectious disease. pending repeat cultures in light of elevated procalcitonin; Note: patients PICC lined had clogged ports. Red port remains clogged in spite of cath rafaela. Blue port improved after cath rafaela. Hip xray negative for acute fracture. There are no noted falls. 09/08/17: Patient denied for LTAC; awaiting for other options from case management/social work. Resident Daniel spoke with Dr. Cortés, patient be transferred under regular bed, when bed is available. Infectious disease on board; Patient started on IV Vancomycin in light of + blood culture. Pending chest xray. 09/09/17: Patient denied for LTAC; awaiting for other options from case management/social work with kamlesh verdin support. Patient started on IV Vancomycin MWF in light of + blood culture. Pending chest xray. F/U sputum with ID. f/u latest blood cultures. <Mariangel Lazar V - Last Filed: 09/10/17 14:29> Objective - Vital Signs/Intake and Output Vital Signs (last 24 hours): Temp Pulse Resp BP Pulse Ox 98.4 F 103 H 18 111/47 L 100 09/10/17 07:35 09/10/17 07:35 09/10/17 07:35 09/10/17 13:09 09/10/17 07:35 - Medications Medications: Current Medications Acetylcysteine (Acetylcysteine 20%) 4 ml INH RQ6 [facility] Last Admin: 09/10/17 08:15 Dose: 4 ml Albuterol/Ipratropium (Duoneb 3 Mg/0.5 Mg (3 Ml) Ud) 3 ml INH RQ6 [facility] Last Admin: 09/10/17 08:15 Dose: 3 ml Apixaban (Eliquis) 2.5 mg PO BID [facility] Last Admin: 09/10/17 11:46 Dose: 2.5 mg Aspirin (Aspirin Chewable) 81 mg PO DAILY [facility] Last Admin: 09/10/17 11:45 Dose: 81 mg Calcium Acetate (Phoslo) 2,001 mg GT TIDCC [facility] Last Admin: 09/10/17 11:46 Dose: 2,001 mg Collagenase (Santyl) 0 gm TOP DAILY [facility] Last Admin: 09/10/17 11:45 Dose: 1 applic Epoetin Chencho (Procrit) 10,000 unit IV MWF [facility] Last Admin: 09/09/17 16:12 Dose: 10,000 unit Famotidine (Pepcid) 20 mg PO DAILY [facility] Last Admin: 09/10/17 11:47 Dose: 20 mg Vancomycin HCl 1 gm/ Sodium (Chloride) 250 mls @ 166.7 mls/hr IVPB MWF [facility] Last Admin: 09/09/17 08:51 Dose: 166.7 mls/hr Insulin Aspart (Novolog) 0 unit SC Q6 [facility] PRN Reason: Protocol Last Admin: 09/10/17 12:27 Dose: 2 unit Insulin Detemir (Levemir) 43 unit SC Q12 [facility] Last Admin: 09/10/17 11:46 Dose: 43 unit Lactobacillus Acidophilus (Bacid Acidophilus) 1 cap PO BID [facility] Last Admin: 09/10/17 11:47 Dose: 1 cap Lisinopril (Zestril) 5 mg PO DAILY [facility] Last Admin: 09/10/17 12:02 Dose: Not Given Metoprolol Tartrate (Lopressor) 50 mg PO BID [facility] Rosuvastatin Calcium (Crestor) 10 mg PO HS [facility] Last Admin: 08/26/17 22:41 Dose: 10 mg - Labs Labs: 09/10/17 07:52 09/10/17 07:52 PT 13.9 SECONDS (9.7-12.2) H 08/24/17 06:08 INR 1.2 08/24/17 06:08 APTT 55 SECONDS (21-34) H D 08/17/17 06:12 Attending/Attestation - Attestation I have personally seen and examined this patient.: Yes I have fully participated in the care of the patient.: Yes I have reviewed all pertinent clinical information, including history, physical exam and plan: Yes Notes (Text): Patient seen, examined, and case discussed with day-time resident. Patient alert, nonverbal, awake, but unable to follow directions or commands. Family not present at bedside. Patient is on telemetry. Patient was hypotensive and mild tachycardia but has had this trend in the ICU while awaiting bed. Patient given 250cc bolus of NS. Patien's next dialysis session is for Tuesday per nurseLincoln. Will need to be careful with fluid. Patient's has low EJ fraction. Adjusted dose of Lopressor 25mg PO bid for the floor. Patient's sputum culture has resulted-->will need to follow with ID; patient's dialysis is on Tuesday to determine which antibiotic. Patient will need suctioning. Patient has thick secretions unable to clear without assistance. Patient is on Vancomycin 1 gram IV MWF (active 09/07/17) for 09/05/17 Coag Negative Staph Aureus in Blood Culture (1/2 bottles) and blood culture 09/07/17 no growth after 48 hours X2. Patient has unstageable sacral ulcer which is stable; wound care is on board. Reconsulted PT/OT since patient was transferred out. Patient is pending LTAC or other facility options for discharge planning purposes.
[2017-09-10] MEDS: Albuterol-Ipratrop 3 mg / 0.5 (3 ml) UD INH SCH ×4 (01:20→19:55)
[2017-09-10] MEDS: Acetylcysteine 20% Inhal Soln (4ml) INH SCH ×4 (01:20→19:55)
--- NOTE | 2017-09-10 07:41 | CP.PCM.PN ---
Subjective - Date & Time of Evaluation Date of Evaluation: 09/10/17 Time of Evaluation: 07:38 - Subjective Subjective: Notes reviewed Out of ICU No distress Awake in bed Soft restraints remain Trach collar for O2 ROS unobtainable due to AMS and clinical condition Objective - Vital Signs/Intake and Output Vital Signs (last 24 hours): Temp Pulse Resp BP Pulse Ox 98.7 F 98 H 20 110/57 L 97 09/09/17 23:07 09/09/17 23:07 09/09/17 23:07 09/09/17 23:07 09/09/17 23:07 - Medications Medications: Current Medications Acetylcysteine (Acetylcysteine 20%) 4 ml INH RQ6 [facility] Last Admin: 09/10/17 01:20 Dose: 4 ml Albuterol/Ipratropium (Duoneb 3 Mg/0.5 Mg (3 Ml) Ud) 3 ml INH RQ6 [facility] Last Admin: 09/10/17 01:20 Dose: 3 ml Apixaban (Eliquis) 2.5 mg PO BID [facility] Last Admin: 09/09/17 17:21 Dose: 2.5 mg Aspirin (Aspirin Chewable) 81 mg PO DAILY [facility] Last Admin: 09/09/17 09:12 Dose: 81 mg Calcium Acetate (Phoslo) 2,001 mg GT TIDCC [facility] Last Admin: 09/09/17 17:21 Dose: 2,001 mg Collagenase (Santyl) 0 gm TOP DAILY [facility] Epoetin Chencho (Procrit) 10,000 unit IV MWF [facility] Last Admin: 09/09/17 16:12 Dose: 10,000 unit Famotidine (Pepcid) 20 mg PO DAILY [facility] Last Admin: 09/09/17 09:11 Dose: 20 mg Vancomycin HCl 1 gm/ Sodium (Chloride) 250 mls @ 166.7 mls/hr IVPB MWF [facility] Last Admin: 09/09/17 08:51 Dose: 166.7 mls/hr Insulin Aspart (Novolog) 0 unit SC Q6 [facility] PRN Reason: Protocol Last Admin: 09/10/17 06:31 Dose: 2 unit Insulin Detemir (Levemir) 43 unit SC Q12 [facility] Last Admin: 09/09/17 22:04 Dose: 43 unit Lactobacillus Acidophilus (Bacid Acidophilus) 1 cap PO BID [facility] Last Admin: 09/09/17 17:21 Dose: 1 cap Lisinopril (Zestril) 5 mg PO DAILY [facility] Last Admin: 09/09/17 09:35 Dose: Not Given Metoprolol Tartrate (Lopressor) 50 mg PO BID [facility] Last Admin: 09/09/17 17:17 Dose: Not Given Rosuvastatin Calcium (Crestor) 10 mg PO HS [facility] Last Admin: 08/26/17 22:41 Dose: 10 mg - Labs Labs: 09/09/17 06:04 09/09/17 06:04 PT 13.9 SECONDS (9.7-12.2) H 08/24/17 06:08 INR 1.2 08/24/17 06:08 APTT 55 SECONDS (21-34) H D 08/17/17 06:12 - Constitutional Appears: No Acute Distress, Chronically Ill - Head Exam Head Exam: ATRAUMATIC, NORMAL INSPECTION - ENT Exam ENT Exam: Mucous Membranes Moist - Neck Exam Neck Exam: absent: Thyromegaly Additional comments: trach site clean - Respiratory Exam Respiratory Exam: Wheezes. absent: Rales - Cardiovascular Exam Cardiovascular Exam: +S1, +S2. absent: Rubs - GI/Abdominal Exam GI & Abdominal Exam: Soft, Normal Bowel Sounds - Neurological Exam Neurological Exam: Awake. absent: Oriented x3 - Skin Skin Exam: Dry, Intact Assessment and Plan (1) ARDS (adult respiratory distress syndrome) Status: Acute (2) Acute on chronic renal failure Status: Acute (3) ESRD (end stage renal disease) Status: Acute (4) Congestive heart failure Status: Acute (5) CHF exacerbation Status: Chronic (6) Diabetes mellitus Status: Chronic (7) HTN (hypertension) Status: Chronic - Assessment and Plan (Free Text) Assessment: Maintain dialysis schedule Labs stable MACIEL with dialysis Tube feeding as tolerated [facility]ive care [facility] when possible
[2017-09-10 08:26] LABS: BASO # 0.1 K/uL (0.0-0.2); BASO % 0.6 % (0.0-2.0); EOS # 0.4 K/uL (0.0-0.7); EOS % 3.4 % (0.0-4.0); HEMATOCRIT 31.1 % (35.0-51.0); LYMPH # 1.6 K/uL (1.0-4.3); LYMPH % 13.2 % (20.0-40.0); MEAN CELL VOLUME 76.4 fL (80.0-94.0); MEAN CORPUSCULAR HEMOGLOBIN 23.8 pg (27.0-31.0); MEAN CORPUSCULAR HGB CONC 31.1 g/dL (33.0-37.0); MEAN PLATELET VOLUME 8.4 fL (7.2-11.7); MONO # 0.8 K/uL (0.0-0.8); MONO % 6.9 % (0.0-10.0); RED CELL DISTRIBUTION WIDTH 23.1 % (11.5-14.5); WHITE BLOOD COUNT 12.1 K/uL (4.8-10.8)
[2017-09-10 08:29] LABS: BILIRUBIN,TOTAL 0.4 mg/dL (0.2-1.3); MAGNESIUM 2.5 mg/dL (1.6-2.3); PHOSPHOROUS 3.3 mg/dL (2.5-4.5)
[2017-09-10 08:31] LABS: ALB/GLOB RATIO 0.6 (1.0-2.1)
[2017-09-10] MEDS: Collagenase 250 Units/gm Ointment(30 gm) TOP SCH ×2 (11:45)
[2017-09-10] MEDS: Insulin Detemir 100 units/ml Vial (Levemir) SC SCH ×2 (11:46→21:55)
[2017-09-10] MEDS: Lactobacillus Acidophilus 500 MU Cap PO SCH ×2 (11:47→17:58)
[2017-09-10] MEDS ORDERED: Sodium Chloride 0.9% 250 ML IV ONE (11:58)
--- NOTE | 2017-09-10 21:21 | CP.PCM.PN ---
Subjective - Date & Time of Evaluation Date of Evaluation: 09/10/17 Time of Evaluation: 11:45 - Subjective Subjective: Patient with no cardiac events Patient awaiting placement Physical examination - Constitutional Appears: Non-toxic, No Acute Distress - Head Exam Head Exam: ATRAUMATIC - Eye Exam Eye Exam: EOMI, Normal appearance - ENT Exam ENT Exam: Mucous Membranes Moist - Neck Exam Neck Exam: Full ROM - Respiratory Exam Respiratory Exam: NORMAL BREATHING PATTERN - Cardiovascular Exam Cardiovascular Exam: +S1, +S2 - GI/Abdominal Exam GI & Abdominal Exam: Soft - Extremities Exam Extremities Exam: Full ROM - Back Exam Back Exam: Full ROM - Neurological Exam Neurological Exam: Awake - Psychiatric Exam Psychiatric exam: Flat Affect - Skin Skin Exam: Normal Color, Warm Objective - Vital Signs/Intake and Output Vital Signs (last 24 hours): Temp Pulse Resp BP Pulse Ox 98.1 F 91 H 20 110/57 L 98 09/10/17 15:38 09/10/17 20:08 09/10/17 15:38 09/10/17 17:57 09/10/17 15:38 Intake and Output: 09/10/17 09/11/17 18:59 06:59 Intake Total 770 100 Balance 770 100 - Medications Medications: Current Medications Acetylcysteine (Acetylcysteine 20%) 4 ml INH RQ6 [facility] Last Admin: 09/10/17 19:55 Dose: 4 ml Albuterol/Ipratropium (Duoneb 3 Mg/0.5 Mg (3 Ml) Ud) 3 ml INH RQ6 [facility] Last Admin: 09/10/17 19:55 Dose: 3 ml Apixaban (Eliquis) 2.5 mg PO BID [facility] Last Admin: 09/10/17 17:58 Dose: 2.5 mg Aspirin (Aspirin Chewable) 81 mg PO DAILY [facility] Last Admin: 09/10/17 11:45 Dose: 81 mg Calcium Acetate (Phoslo) 2,001 mg GT TIDCC [facility] Last Admin: 09/10/17 16:47 Dose: 2,001 mg Collagenase (Santyl) 0 gm TOP DAILY [facility] Last Admin: 09/10/17 11:45 Dose: Not Given Epoetin Chencho (Procrit) 10,000 unit IV MWF [facility] Last Admin: 09/09/17 16:12 Dose: 10,000 unit Famotidine (Pepcid) 20 mg PO DAILY [facility] Last Admin: 09/10/17 11:47 Dose: 20 mg Vancomycin HCl 1 gm/ Sodium (Chloride) 250 mls @ 166.7 mls/hr IVPB MWF [facility] Last Admin: 09/09/17 08:51 Dose: 166.7 mls/hr Insulin Aspart (Novolog) 0 unit SC Q6 [facility] PRN Reason: Protocol Last Admin: 09/10/17 17:42 Dose: 2 unit Insulin Detemir (Levemir) 43 unit SC Q12 [facility] Last Admin: 09/10/17 11:46 Dose: 43 unit Lactobacillus Acidophilus (Bacid Acidophilus) 1 cap PO BID [facility] Last Admin: 09/10/17 17:58 Dose: 1 cap Lisinopril (Zestril) 5 mg PO DAILY [facility] Last Admin: 09/10/17 12:02 Dose: Not Given Metoprolol Tartrate (Lopressor) 50 mg PO BID [facility] Last Admin: 09/10/17 17:58 Dose: 50 mg Rosuvastatin Calcium (Crestor) 10 mg PO HS [facility] Last Admin: 08/26/17 22:41 Dose: 10 mg - Labs Labs: 09/10/17 07:52 09/10/17 07:52 PT 13.9 SECONDS (9.7-12.2) H 08/24/17 06:08 INR 1.2 08/24/17 06:08 APTT 55 SECONDS (21-34) H D 08/17/17 06:12 Assessment and Plan - Assessment and Plan (Free Text) Assessment: Paraxysmal a Fib Intermittent On Metoprolol 50 mg PO BID, Eliquis 2.5 mg PO BID CAD, chest pain -No current plans for cardiac cath (acute respiratory failure and elevated Cr) , history of abnormal stress test -Elevated Troponin likely due to chest compressions during cardiac arrest 08/10 -No acute ST changes on EKG -Continue ASA, Crestor, Metoprolol. Plavix discontinued. -Echocardiogram from 08/08/17 showed left ventricle systolic function is severely impaired. EF: 25-30%; global hypokinesis of LV mild AR. MR is moderate. Moderate-severe pulmonary hypertension Systolic CHF exacerbation -CXR 09/09: Diminished bilateral basilar airspace disease; stable cardiomegaly -BNP [id number] on 08/06/17 -Continue ASA, Crestor, Metoprolol -Echocardiogram from 08/08/17 showed left ventricle systolic function is severely impaired. EF: 25-30%; global hypokinesis of LV mild AR. MR is moderate. Moderate-severe pulmonary hypertesnion Dobutamine discontinued in light of atrial flutter-type episodes Diabetes Mellitus ISS Continue to monitor ESRD on HD HD due today On Procrit and Phoslo Nephro on the case Prophylaxis Pepcid 20 mg PO daily Eliquis 2.5 mg PO BID (Renal precautions) Disposition Awaiting Transfer to LTAC
--- NOTE | 2017-09-10 23:14 | CP.PCM.PN ---
<Danni Almaraz - Last Filed: 09/11/17 00:52> Subjective - Date & Time of Evaluation Date of Evaluation: 09/11/17 Time of Evaluation: 00:25 - Subjective Subjective: Medicine Note for Dr. Lazar Patient seen and examined at bedside. Patient resting comfortably in bed. No acute complaints. Objective - Vital Signs/Intake and Output Vital Signs (last 24 hours): Temp Pulse Resp BP Pulse Ox 98.1 F 98 H 20 111/42 L 98 09/10/17 15:38 09/10/17 21:00 09/10/17 15:38 09/10/17 21:00 09/10/17 15:38 Intake and Output: 09/10/17 09/11/17 18:59 06:59 Intake Total 770 460 Balance 770 460 - Medications Medications: Current Medications Acetylcysteine (Acetylcysteine 20%) 4 ml INH RQ6 [facility] Last Admin: 09/10/17 19:55 Dose: 4 ml Albuterol/Ipratropium (Duoneb 3 Mg/0.5 Mg (3 Ml) Ud) 3 ml INH RQ6 [facility] Last Admin: 09/10/17 19:55 Dose: 3 ml Apixaban (Eliquis) 2.5 mg PO BID [facility] Last Admin: 09/10/17 17:58 Dose: 2.5 mg Aspirin (Aspirin Chewable) 81 mg PO DAILY [facility] Last Admin: 09/10/17 11:45 Dose: 81 mg Calcium Acetate (Phoslo) 2,001 mg GT TIDCC [facility] Last Admin: 09/10/17 16:47 Dose: 2,001 mg Collagenase (Santyl) 0 gm TOP DAILY [facility] Last Admin: 09/10/17 11:45 Dose: Not Given Epoetin Chencho (Procrit) 10,000 unit IV MWF [facility] Last Admin: 09/09/17 16:12 Dose: 10,000 unit Famotidine (Pepcid) 20 mg PO DAILY [facility] Last Admin: 09/10/17 11:47 Dose: 20 mg Vancomycin HCl 1 gm/ Sodium (Chloride) 250 mls @ 166.7 mls/hr IVPB MWF [facility] Last Admin: 09/09/17 08:51 Dose: 166.7 mls/hr Insulin Aspart (Novolog) 0 unit SC Q6 [facility] PRN Reason: Protocol Last Admin: 09/10/17 17:42 Dose: 2 unit Insulin Detemir (Levemir) 43 unit SC Q12 [facility] Last Admin: 09/10/17 21:55 Dose: 43 unit Lactobacillus Acidophilus (Bacid Acidophilus) 1 cap PO BID [facility] Last Admin: 09/10/17 17:58 Dose: 1 cap Lisinopril (Zestril) 5 mg PO DAILY [facility] Last Admin: 09/10/17 12:02 Dose: Not Given Metoprolol Tartrate (Lopressor) 50 mg PO BID [facility] Last Admin: 09/10/17 17:58 Dose: 50 mg Rosuvastatin Calcium (Crestor) 10 mg PO HS [facility] Last Admin: 08/26/17 22:41 Dose: 10 mg - Labs Labs: 09/10/17 07:52 09/10/17 07:52 PT 13.9 SECONDS (9.7-12.2) H 08/24/17 06:08 INR 1.2 08/24/17 06:08 APTT 55 SECONDS (21-34) H D 08/17/17 06:12 - Additional Findings Additional findings: - Constitutional Appears: Non-toxic - Head Exam Head Exam: NORMAL INSPECTION Additional comments: left ear has ulcer treated by wound care. dressing intact - Eye Exam Eye Exam: EOMI - ENT Exam ENT Exam: Mucous Membranes Moist - Neck Exam Neck Exam: Full ROM. absent: Tenderness - Respiratory Exam Respiratory Exam: NORMAL BREATHING PATTERN. absent: Accessory Muscle Use - Cardiovascular Exam Cardiovascular Exam: REGULAR RHYTHM, +S1, +S2. absent: Bradycardia, Tachycardia - GI/Abdominal Exam GI & Abdominal Exam: Soft Additional comments: PEG tube in place area surrounding PEG tube, no signs of erythema, purulence, induration - Extremities Exam Extremities Exam: absent: Full ROM, Pedal Edema - Neurological Exam Neurological Exam: Awake - Psychiatric Exam Psychiatric exam: Normal Affect, Normal Mood - Skin Skin Exam: Warm Additional comments: Patient has a sacral ulcer with eschar in center. Assessment and Plan - Assessment and Plan (Free Text) Plan: (1) Acute Respiratory Failure ARDS Cardiac Arrest Pulmonary Edema Nonstemi Assessment and Plan: * Code Blue on 08/10: asystole, cardiopulmonary resuscitative measures initiated , requiring 3 epis, bicarbonate, ROSC achieved and intubated and brought to the ICU for further management; Patient in the ICU from 08/10 until present. * Pulmonary: Dr Mena (Dr. Jeffers covering until 09/04/17)-->help appreciated * Cardiology: Dr. Cortés on board-->help appreciated * GI (Dr. Wills) on board-->help appreciated * S/P Tracheostomy 08/22 * S/P Peg tube placement 08/25 * s/p insertion of right posterior chest tube 08/19-->removed 08/24/17 * There was consideration for possible thoracentesis of left side pleural effusion, evaluated by IR, there is no fluid to drain per Dr. Gross * Chest xray (08/26): right arm PICC is seen with the tip of distal subclavian vein. PICC may be used * Per cardiology, * Restart Aspirin 81mg PO daily * Patient does not need Plavix at this time * Recommend for Eliquis 2.5mg PO BID for atrial flutter * 08/27: patient is pending LTAC, he went eventually need cardiac catheterization when he has stabilized. Held statin secondary to elevated LFTs. Discussed with Dr. Cortés, lowered Amiodarone 200mg PO daily * 08/28: patient is pending LTAC, he went eventually need cardiac catheterization when he has stabilized. Liver function tests improving * 08/29: Valve Seater Operator Nehal has sent request to insurance for authorization for LTAC-->pending * 09/06: pending social work/case management approval for LTAC * 09/07: pending social work/case management approval for LTAC * 09/08: Unable to get approval for LTAC; pending other options * 09/09: Transferred from step-down ICU to the floors (2) Abnormal Stress Test History of AICD History of Coronary Artery Disease Assessment and Plan: * Cardiology (Dr. Cortés) on board-->help appreciated * TSH: 1.16; T4: 1.53 * Echocardiogram (08/08/17): left ventricle systolic function is severely impaired. EF: 25-30%; global hypokinesis of left ventricle mild aortic regurgitation. Mitral regurgitation is moderate. Moderate-severe pulmonary hypertension * Plan was for cardiac catheterization; delayed due to acute renal failure; Attempted gentle hydration and mucomyst on 08/09 to optimize prior to cath * On 08/10, patient was in asystole, ACLS protocol, ROSC achieved, intubated and transfered to the ICU. Patient in acute pulmonary edema. * Patient hospitalized in the ICU since 08/10/17 to present. * Medications: * Aspirin 81mg PO daily * Plavix d/c by cardiology * Lopressor 50mg PO bid * d/c Crestor 10mg POqHS secondary to rise in LFTS 08/27--->monitor LFTs daily * ARB d/c secondary to acute renal failure * 08/27: patient is pending LTAC, he went eventually need cardiac catheterization when he has stabilized. Held statin secondary to elevated LFTs. Discussed with Dr. Cortés, lowered Amiodarone 200mg PO daily * 08/28: patient is pending LTAC. He will eventually need cardiac catheterization when he has stabilized. Liver function tests improving. Statin is on hold (3) Atrial flutter Assessment and Plan: * Cardiology (Dr. Cortés) on board-->help appreciated * Refractory to Lopressor/Cardizem IVP * Eliquis 2.5mg PO bid * Amiodarone bolus-->Amiodarine drip on 08/24-->converted to Amiodarone 200mg PO TID on 08/26 and this was decreased to 200 mg 1x/day due to increased LFTs * 08/27: Discussed with Dr. Cortés, will lower Amiodarone 200mg PO daily and monitor LFTs. Statin held and tylenol d/c * 08/29: patient is pending LTAC, he will eventually need cardiac catheterization when he has stabilized. Liver function tests improving. Statin is on hold due to the elevated LFTs * 08/30: Cardiology discontinued the Amiodarone * 09/07: Held eliquis; will need to resume * 09/09: Eliquis resumed, off Amiodarone Status: Acute (4) Acute on Chronic Systolic CHF exacerbation Assessment and Plan: * Cardiology (Dr. Cortés) on board-->help appreciated * Transferred to the ICU on 08/10 following cardiac arrest and intubation. * Echocardiogram (08/08/17): left ventricular systolic function is severely impaired. EF: 25-30%; global hypokinesis of left ventricle mild aortic regurgitation. Mitral regurgitation is moderate. Moderate-severe pulmonary hypertension * Medications: * Aspirin 81mg PO daily * Plavix d/c by cardiology * Lopressor 50mg PO bid * d/c Crestor 10mg POqHS on 08/27 secondary to rise in LFTs * ARB d/c secondary to acute renal failure Status: Acute (5) Leukocytosis Assessment and Plan: * Patient's white count downtrending * Pleural Fluid 08/19/17 did not show any growth * Blood cultures (08/26): no growth X5 days * UA and urine culture (08/27): Urine Culture showed Yeast Species. * Patient has elevated LFTs-->did not start anti-fungal in light of LFTs New: * 09/05/17 Blood: gram positive cocci-->pending speciation * 09/05/17 Blood: no growth after 4 days * 09/07/17 Legionella Culture: negative * 09/07/17 Mycobacteria: negative * 09/07/17 Sputum: Enterocloace Bacter; yeast-->f/u sensitivities * 09/07/17 Blood: negative X 48 hours * 09/07/17 Blood: negative X 48 hours * 09/06: stool culture pending; has not had diarrhea or bowel movement * 09/07: Dr. Zimmer (covering Dr. Lawrence) to see the patient given elevated procalcitonin * IV abx: Vancomycin 1 gram MWF; will need to f/u with ID regarding sputum culture Status: Acute (6) Pneumonia Assessment and Plan: * Pulmonary (Dr. Mena) on board-->help appreciated; Dr. Jeffers covering while Dr. Mena away * Infectious Disease (Dr. Lawrence)-->help appreciated * Chest xray (08/26): right arm PICC is seen with the tip of distal subclavian vein. PICC may be used * Rapid A strep, Influenza A and B studies, Urine Legionella, Mycoplasma studies = Negative * Florastor 250mg PO bid * 08/07/17: +Strep Pneumoniae in the urine * Meropenem 500mg IV Q 8 hours (08/14/17 through 08/18/17) and Zosyn 2.25 mg IV Q6H (08/13/17 through 08/18/17) * Cefepime 1 gm IV Q24H: started on 08/19/17 and was discontinued by ID Dr. Lawrence on 08/30/17: monitor vitals and labs * s/p right posterior chest tube 08/19-08/24 * Sputum Culture 08/19/17 shows No growth * Pleural fluid 08/19/17: No growth * 09/07/17 Sputum: Enterocloace Bacter; yeast-->f/u sensitivities * IV abx: Vancomycin 1 gram MWF; will need to f/u with ID regarding sputum culture Status: Acute (7) HTN (hypertension) Assessment and Plan: * Lopressor 50mg PO bid * Lisinopril 5mg PO daily Status: Chronic (8) CKD (chronic kidney disease) on Dialysis Assessment and Plan: * Dr. Miranda (nephrology) consulted on the case * Hx of CKD-->Started on dialysis 08/15/17 * Kurtis catheter placed and removed 08/22 * s/p Right Chest Permcath 08/22 * Patient is on dialysis; oliguric * Phoslo 1334mg GT TID * Epoetin 10,000 unit IV MWF Status: Acute (9) Diabetes mellitus Assessment and Plan: * Accuchecks Q6H * HgbA1c 8.4 * Started peg feedings on 08/26/17 * Nepro-->50 ml/hour (10) HLD (hyperlipidemia) Assessment and Plan: * 08/27: held Crestor 10 mg PO HS secondary to rise in LFTs * 08/29: Liver function tests improving; waiting to restart statin Status: Chronic (11) Anemia Assessment and Plan: * Heme-oncology (Dr. Giles bender) on board-->help appreciated * Likely iron deficiency anemia based on prior admissions * Ferritin 27.4, Iron 22, TIBC 322, % Saturation 7 * Ferric Sodium Gluconate 125mg IVPB daily (active 08/08-08/16) * Procrit 10,000 units -W- * Monitor Hgb/Hct: stable Status: Chronic (12) History of DVT (deep vein thrombosis) Assessment and Plan: * Patient was previously on Eliquis for a prior history of DVT. * Repeat dopplers 08/09/17 are negative for DVT * Off Heparin Drip 08/17/17 * Started Eliquis 2.5mg PO BID for atrial flutter and history of DVT Status: Chronic (13) UTI Assessment and Plan: * Infectious disease (Dr. Lawrence) on board-->help appreciated * Exchange jaquez out and repeat urine cultures * Urine Culture 08/12/17 showed Gram Negative Rods: NO identification and NO sensitivities were performed * Meropenem 500mg IV Q 12hours (active since 08/14/17 through 08/18/17) to cover for UTI per ID * Repeat Urine Culture 08/18/17 shows NO growth * 08/25: reculture in light of leukocytosis * 08/27: pending urine studies * 08/30: Urine Culture 08/27/17 showed Yeast Species but no antifungal secondary to recent history of Elevated LFTs Status: Chronic (14) Confusion; Alzheimer's Dementia Assessment and Plan: * Per daughter, patient has been getting bouts of confusion over the past year but appears at baseline. Patient has not seen formal neurology as outpatient per daughter. Per , prior to event, noted Alzheimers' disease dx one year ago * CT head w/o contrast (08/10/17):acute os subacute lacune infarct is not excluded in the left basal ganglia inferiorly with definitive chronic lacune identified in the right basal ganglia superiorly. No acute or subacute lobar brain infarction is appreciable by standard CT criteria. Mild age-related neuro degenerative changes are identifed. 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 No changes to dimensions at this time. Also, pt favoring Left side of head and has developed a 1x1 serous filled blister on his left ear. Primary nurse placed duoderm on the ear. Wound care nurse left duoderm in place , and recommends leaving it on until it falls off on its own. Pt has been NPO for several days, new peg inserted yesterday. Will be starting glucerna tube feedings later today. Albumin 3.3 * Turn q 2 hours * medihoney on unstageable ulcer * duoderm on left ear aurical ulcer * 09/02/17: examined with Wound Care Nurse Emeka Samuel and periphery of the Sacral Wound is pink with some bleeding however center is still black and therefore still unstageable. Continue spray with Cavelon followed by thick coating with MediHoney followed by covering with OptiFoam once a day. * 09/03/17: Change of sacral ulcer dressing was performed by me with assitance from Nurse Esmer * 09/04/17: 09/03/17: Change of sacral ulcer dressing was performed by me with assistance from ALEXANDRA Unger * Per wound care note (09/07): sacral ulcer is stable per wound care nurse Status: Acute (16) Elevated LFTs Assessment and Plan: * 08/27: Yina * Discussed with cardiology-->changed amiodarone 200mg PO tid to amiodaron 200mg PO daily * D/C tylenol * Held Statin * patient is also on Rocephin to cover for pneumonia * Will not start antifungal * 08/29: starting to down trending since change in amiodarone dose; awaiting to restart statin * 08/30: continues to trend down. Amiodarone was discontinued * 09/01: AST, ALT, Alk Phos still elevated but stable * 09/02: AST, ALT, Alk Phos still elevated but stable * 09/03: LFTs stable * 09/04: LFTs stable Status: Acute (17). Hx Constipation * Monitor bowel movement * Patient is given Ducolax--f/u Bowel movement (18). Prophylactic measure Assessment and Plan: * Pepcid 20mg PO daily * Start Eliquis 2.5mg PO BID * s/p peg placement 08/25 * s/p trachesostomy 08/22 * s/p Permcath placement 08/22 removal Kurtis catheter * s/p right posterior chest tube 08/19-->removed 08/24 * s/p Right Arm PICC 08/26 * (Jovita Serrano): -->number provided to the nurse- ->consented for peg placement; discussed about LTAC 08/26 * I spoke with Dr. Pickard, [place] regarding patient's hospitalization up until this point 08/2609/01/17: Dr. Cullen Barth spoke with the patient's [place] with the assistance of Nurse Campos on 3 tower (as multiple attempts of using [employer] indicated that all of the [place] translators were busy) and explained all of the patient's diagnosises. 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 Her ultimate wish is to take patient to [facility] where their children live. I explained to patient that I would not know how that would be coordinated but that the Social Workers/Continuing Education Instructor at LTAC may be of assistance in this regard. I also informed her that I am not aware of any insurance company that would finance this request. She understands that the patient is awaiting insurance approval for LTAC. 09/01/17 and 09/02/17: Dr. Cullen Barth spoke with Operator Coating Furnace Demetria and we are still awaiting insurance authorization for LTAC placement. 09/05/17: Spoke with nehal, social worker aide, wean trials sent to LTAC pending approval no word yet regarding approval. Ordered for repeat cultures given uptrend in white count. 09/06/17: pending repeat cultures in light of elevated procalcitonin; ID recommended to reculture. Note: patients PICC lined had clogged ports. Red port remains clogged in spite of cath rafaela. Blue port improved after cath rafaela. Possible may need to remove line to r/o infected line. Strong suspicion due to patient's pneumonia given he has thick secretions. 09/07/17: Infectious disease. pending repeat cultures in light of elevated procalcitonin; Note: patients PICC lined had clogged ports. Red port remains clogged in spite of cath rafaela. Blue port improved after cath rafaela. Hip xray negative for acute fracture. There are no noted falls. 09/08/17: Patient denied for LTAC; awaiting for other options from case management/social work. Resident Daniel spoke with Dr. Cortés, patient be transferred under regular bed, when bed is available. Infectious disease on board; Patient started on IV Vancomycin in light of + blood culture. Pending chest xray. 09/09/17: Patient denied for LTAC; awaiting for other options from case management/social work with kamlesh verdin support. Patient started on IV Vancomycin MWF in light of + blood culture. Pending chest xray. F/U sputum with ID. f/u latest blood cultures. <Mariangel Lazar V - Last Filed: 09/13/17 16:57> Objective - Vital Signs/Intake and Output Vital Signs (last 24 hours): Temp Pulse Resp BP Pulse Ox 98.6 F 103 H 15 83/28 L 98 09/13/17 13:00 09/13/17 15:09 09/13/17 15:09 09/13/17 15:09 09/13/17 15:09 - Medications Medications: Current Medications Acetylcysteine (Acetylcysteine 20%) 4 ml INH RQ6 [facility] Last Admin: 09/13/17 03:08 Dose: 4 ml Albuterol/Ipratropium (Duoneb 3 Mg/0.5 Mg (3 Ml) Ud) 3 ml INH RQ6 [facility] Last Admin: 09/13/17 03:08 Dose: 3 ml Apixaban (Eliquis) 2.5 mg PO BID [facility] Last Admin: 09/12/17 21:54 Dose: 2.5 mg Aspirin (Aspirin Chewable) 81 mg PO DAILY [facility] Last Admin: 09/12/17 10:33 Dose: 81 mg Collagenase (Santyl) 0 gm TOP DAILY [facility] Last Admin: 09/13/17 10:50 Dose: 1 applic Epoetin Chencho (Procrit) 10,000 unit IV [facility] Last Admin: 09/12/17 16:23 Dose: 10,000 unit Famotidine (Pepcid) 20 mg PO DAILY [facility] Last Admin: 09/12/17 10:33 Dose: 20 mg Fluconazole (Diflucan) 200 mg PO DAILY [facility] Last Admin: 09/13/17 10:49 Dose: 200 mg Vancomycin HCl 1 gm/ Sodium (Chloride) 250 mls @ 166.7 mls/hr IVPB MWF [facility] Last Admin: 09/12/17 21:57 Dose: 166.7 mls/hr Norepinephrine Bitartrate 4 mg (/ Dextrose) 254 mls @ 15.24 mls/hr IV .[id number] PRN; Protocol; 4 MCG/MIN PRN Reason: TITRATE PER MD ORDER Meropenem 500 mg/ Sodium (Chloride) 100 mls @ 200 mls/hr IVPB Q12H [facility] Last Admin: 09/13/17 14:35 Dose: 200 mls/hr Insulin Aspart (Novolog) 0 unit SC Q6 [facility] PRN Reason: Protocol Last Admin: 09/13/17 13:41 Dose: 4 unit Insulin Detemir (Levemir) 43 unit SC Q12 [facility] Last Admin: 09/12/17 22:08 Dose: 43 unit Lactobacillus Acidophilus (Bacid Acidophilus) 1 cap PO BID [facility] Last Admin: 09/12/17 21:24 Dose: 1 cap Metoprolol Tartrate (Lopressor) 50 mg PO BID [facility] Last Admin: 09/13/17 10:51 Dose: Not Given Rosuvastatin Calcium (Crestor) 10 mg PO HS [facility] Last Admin: 08/26/17 22:41 Dose: 10 mg Sevelamer Carbonate (Renvela) 1.6 gm GT TIDCC [facility] Last Admin: 09/13/17 13:38 Dose: Not Given Trimethoprim/Sulfamethoxazole (Sulfatrim Pediatric Susp) 10 ml PO Q12 [facility] Last Admin: 09/12/17 21:26 Dose: 10 ml - Labs Labs: 09/13/17 13:23 09/13/17 13:23 PT 13.9 SECONDS (9.7-12.2) H 08/24/17 06:08 INR 1.2 08/24/17 06:08 APTT 55 SECONDS (21-34) H D 08/17/17 06:12 Attending/Attestation - Attestation I have personally seen and examined this patient.: Yes I have fully participated in the care of the patient.: Yes I have reviewed all pertinent clinical information, including history, physical exam and plan: Yes Notes (Text): This is late computer entry for 09/11/17. Patient seen, examined, and case discussed with day-time resident. Patient alert, nonverbal, awake, but unable to follow directions or commands. Family not present at bedside. Patient is on telemetry. Patient resting at bedside this afternoon. Patien's next dialysis session is for Tuesday per nurseLincoln. Will need to be careful with fluid. Patient's has low EJ fraction. Adjusted dose of Lopressor 25mg PO bid for the floor yesterday. Patient's sputum culture has resulted-->will need to follow with ID; patient's dialysis is on Tuesday to determine which antibiotic. Patient will need suctioning. Patient has thick secretions unable to clear without assistance. Patient is on Vancomycin 1 gram IV MWF (active 09/07/17) for 09/05/17 Coag Negative Staph Aureus in Blood Culture (1/2 bottles) and blood culture 09/07/17 no growth after 48 hours X2. Patient has unstageable sacral ulcer which is stable; wound care is on board. Reconsulted PT/OT since patient was transferred out. Patient is pending LTAC or other facility options for discharge planning purposes.
[2017-09-11] MEDS: (Novolog) Insulin Aspart, Recombinant 100 u/ml 10 ml vial SC SCH ×4 (00:22→17:48)
[2017-09-11] MEDS: Acetylcysteine 20% Inhal Soln (4ml) INH SCH ×4 (03:02→19:50)
[2017-09-11] MEDS: Albuterol-Ipratrop 3 mg / 0.5 (3 ml) UD INH SCH ×4 (03:02→19:50)
[2017-09-11 08:51] LABS: BASO # 0.1 K/uL (0.0-0.2); BASO % 0.8 % (0.0-2.0); EOS # 0.4 K/uL (0.0-0.7); EOS % 2.6 % (0.0-4.0); HEMATOCRIT 30.8 % (35.0-51.0); LYMPH % 13.4 % (20.0-40.0); MEAN CELL VOLUME 76.5 fL (80.0-94.0); MEAN CORPUSCULAR HEMOGLOBIN 23.7 pg (27.0-31.0); MEAN CORPUSCULAR HGB CONC 30.9 g/dL (33.0-37.0); MEAN PLATELET VOLUME 8.4 fL (7.2-11.7); MONO # 0.9 K/uL (0.0-0.8); NRBC % 0.1 % (0.0-2.0); RED CELL DISTRIBUTION WIDTH 23.3 % (11.5-14.5); WHITE BLOOD COUNT 14.9 K/uL (4.8-10.8)
[2017-09-11 09:25] LABS: POTASSIUM 4.3 mmol/L (3.6-5.2)
[2017-09-11 09:27] LABS: BILIRUBIN,TOTAL 0.4 mg/dL (0.2-1.3)
[2017-09-11 09:28] LABS: ALB/GLOB RATIO 0.6 (1.0-2.1); CALCIUM 10.9 mg/dl (8.6-10.4); PHOSPHOROUS 4.1 mg/dL (2.5-4.5); TOTAL PROTEIN 8.1 g/dL (6.3-8.3)
[2017-09-11 09:29] LABS: MAGNESIUM 2.8 mg/dL (1.6-2.3)
[2017-09-11] MEDS: Lactobacillus Acidophilus 500 MU Cap PO SCH ×2 (10:56→17:49)
[2017-09-11] MEDS: Insulin Detemir 100 units/ml Vial (Levemir) SC SCH ×2 (10:57→21:56)
[2017-09-11] MEDS: Collagenase 250 Units/gm Ointment(30 gm) TOP SCH (10:57)
--- NOTE | 2017-09-11 14:55 | CP.PCM.PN ---
Subjective - Date & Time of Evaluation Date of Evaluation: 09/11/17 Time of Evaluation: 08:00 - Subjective Subjective: s/p cardiac arrest , trach and PEG afebrile Objective - Vital Signs/Intake and Output Vital Signs (last 24 hours): Temp Pulse Resp BP Pulse Ox 98.5 F 100 H 20 90/54 L 97 09/11/17 08:00 09/11/17 08:00 09/11/17 08:00 09/11/17 08:00 09/11/17 08:00 Intake and Output: 09/11/17 09/11/17 06:59 18:59 Intake Total 460 Balance 460 - Medications Medications: Current Medications Acetylcysteine (Acetylcysteine 20%) 4 ml INH RQ6 [facility] Last Admin: 09/11/17 13:45 Dose: 4 ml Albuterol/Ipratropium (Duoneb 3 Mg/0.5 Mg (3 Ml) Ud) 3 ml INH RQ6 [facility] Last Admin: 09/11/17 13:45 Dose: 3 ml Apixaban (Eliquis) 2.5 mg PO BID [facility] Last Admin: 09/11/17 10:56 Dose: 2.5 mg Aspirin (Aspirin Chewable) 81 mg PO DAILY [facility] Last Admin: 09/11/17 10:57 Dose: 81 mg Calcium Acetate (Phoslo) 2,001 mg GT TIDCC [facility] Last Admin: 09/11/17 13:29 Dose: 2,001 mg Collagenase (Santyl) 0 gm TOP DAILY [facility] Last Admin: 09/10/17 11:45 Dose: Not Given Epoetin Chencho (Procrit) 10,000 unit IV MWF [facility] Last Admin: 09/09/17 16:12 Dose: 10,000 unit Famotidine (Pepcid) 20 mg PO DAILY [facility] Last Admin: 09/11/17 10:57 Dose: 20 mg Vancomycin HCl 1 gm/ Sodium (Chloride) 250 mls @ 166.7 mls/hr IVPB MWF [facility] Last Admin: 09/09/17 08:51 Dose: 166.7 mls/hr Insulin Aspart (Novolog) 0 unit SC Q6 [facility] PRN Reason: Protocol Last Admin: 09/11/17 13:28 Dose: 3 unit Insulin Detemir (Levemir) 43 unit SC Q12 [facility] Last Admin: 10/15/17 10:57 Dose: 43 unit Lactobacillus Acidophilus (Bacid Acidophilus) 1 cap PO BID [facility] Last Admin: 09/11/17 10:56 Dose: 1 cap Lisinopril (Zestril) 5 mg PO DAILY [facility] Last Admin: 09/11/17 10:57 Dose: Not Given Metoprolol Tartrate (Lopressor) 50 mg PO BID [facility] Last Admin: 09/11/17 10:58 Dose: Not Given Rosuvastatin Calcium (Crestor) 10 mg PO HS [facility] Last Admin: 08/26/17 22:41 Dose: 10 mg - Labs Labs: 09/11/17 08:22 09/11/17 08:22 PT 13.9 SECONDS (9.7-12.2) H 08/24/17 06:08 INR 1.2 08/24/17 06:08 APTT 55 SECONDS (21-34) H D 08/17/17 06:12 - Constitutional Appears: Non-toxic - Head Exam Head Exam: NORMOCEPHALIC - Eye Exam Eye Exam: absent: Scleral icterus - ENT Exam ENT Exam: Mucous Membranes Dry - Neck Exam Neck Exam: absent: Lymphadenopathy - Respiratory Exam Respiratory Exam: Decreased Breath Sounds - Cardiovascular Exam Cardiovascular Exam: REGULAR RHYTHM - GI/Abdominal Exam GI & Abdominal Exam: Distended - Rectal Exam Rectal Exam: Deferred - Exam Exam: NORMAL INSPECTION Assessment and Plan (1) ARDS (adult respiratory distress syndrome) Status: Acute (2) Acute on chronic renal failure Status: Acute (3) CHF (congestive heart failure) Status: Acute (4) Cardiac arrest Status: Acute (5) ESRD (end stage renal disease) Status: Acute (6) Leukocytosis Status: Acute (7) Pneumonia Status: Acute (8) Type 2 diabetes mellitus with diabetic nephropathy Status: Acute
--- NOTE | 2017-09-11 17:49 | CP.PCM.PN ---
Subjective - Date & Time of Evaluation Date of Evaluation: 09/11/17 Time of Evaluation: 15:00 - Subjective Subjective: Patient seen and examined. Lying Comfortably in no acute distress On trach collar Afebrile Patient is awake and responsive Objective - Vital Signs/Intake and Output Vital Signs (last 24 hours): Temp Pulse Resp BP Pulse Ox 98 F 102 H 20 111/65 95 09/11/17 16:00 09/11/17 16:00 09/11/17 16:00 09/11/17 16:00 09/11/17 16:00 Intake and Output: 09/11/17 09/11/17 06:59 18:59 Intake Total 460 540 Balance 460 540 - Medications Medications: Current Medications Acetylcysteine (Acetylcysteine 20%) 4 ml INH RQ6 [facility] Last Admin: 09/11/17 13:45 Dose: 4 ml Albuterol/Ipratropium (Duoneb 3 Mg/0.5 Mg (3 Ml) Ud) 3 ml INH RQ6 [facility] Last Admin: 09/11/17 13:45 Dose: 3 ml Apixaban (Eliquis) 2.5 mg PO BID [facility] Last Admin: 09/11/17 10:56 Dose: 2.5 mg Aspirin (Aspirin Chewable) 81 mg PO DAILY [facility] Last Admin: 09/11/17 10:57 Dose: 81 mg Calcium Acetate (Phoslo) 2,001 mg GT TIDCC [facility] Last Admin: 09/11/17 17:05 Dose: 2,001 mg Collagenase (Santyl) 0 gm TOP DAILY [facility] Last Admin: 09/11/17 10:57 Dose: Not Given Epoetin Chencho (Procrit) 10,000 unit IV MWF [facility] Last Admin: 09/09/17 16:12 Dose: 10,000 unit Famotidine (Pepcid) 20 mg PO DAILY [facility] Last Admin: 09/11/17 10:57 Dose: 20 mg Vancomycin HCl 1 gm/ Sodium (Chloride) 250 mls @ 166.7 mls/hr IVPB MWF [facility] Last Admin: 09/09/17 08:51 Dose: 166.7 mls/hr Insulin Aspart (Novolog) 0 unit SC Q6 [facility] PRN Reason: Protocol Last Admin: 09/11/17 13:28 Dose: 3 unit Insulin Detemir (Levemir) 43 unit SC Q12 [facility] Last Admin: 09/11/17 10:57 Dose: 43 unit Lactobacillus Acidophilus (Bacid Acidophilus) 1 cap PO BID [facility] Last Admin: 09/11/17 10:56 Dose: 1 cap Lisinopril (Zestril) 5 mg PO DAILY [facility] Last Admin: 09/11/17 10:57 Dose: Not Given Metoprolol Tartrate (Lopressor) 50 mg PO BID [facility] Last Admin: 09/11/17 10:58 Dose: Not Given Rosuvastatin Calcium (Crestor) 10 mg PO HS [facility] Last Admin: 08/26/17 22:41 Dose: 10 mg - Labs Labs: 09/11/17 08:22 09/11/17 08:22 PT 13.9 SECONDS (9.7-12.2) H 08/24/17 06:08 INR 1.2 08/24/17 06:08 APTT 55 SECONDS (21-34) H D 08/17/17 06:12 - Head Exam Head Exam: ATRAUMATIC, NORMOCEPHALIC - Eye Exam Eye Exam: Normal appearance - ENT Exam ENT Exam: Mucous Membranes Moist - Neck Exam Neck Exam: Normal Inspection - Respiratory Exam Respiratory Exam: Clear to Ausculation Bilateral - Cardiovascular Exam Cardiovascular Exam: REGULAR RHYTHM - GI/Abdominal Exam GI & Abdominal Exam: Soft, Normal Bowel Sounds Assessment and Plan (1) Cardiac arrest Assessment & Plan: Status post tracheostomy Patient is awake and responsive We will start weaning for decannulation Status: Acute (2) Pneumonia Status: Acute (3) History of DVT (deep vein thrombosis) Status: Acute (4) CKD (chronic kidney disease) Status: Chronic (5) Acute on chronic renal failure Status: Acute (6) CHF (congestive heart failure) Status: Acute
--- NOTE | 2017-09-11 20:39 | CP.PCM.PN ---
Subjective - Date & Time of Evaluation Date of Evaluation: 09/11/17 Time of Evaluation: 11:00 - Subjective Subjective: Patient with no cardiac events Patient awaiting placement Physical examination - Constitutional Appears: Non-toxic, No Acute Distress - Head Exam Head Exam: ATRAUMATIC - Eye Exam Eye Exam: EOMI, Normal appearance - ENT Exam ENT Exam: Mucous Membranes Moist - Neck Exam Neck Exam: Full ROM - Respiratory Exam Respiratory Exam: NORMAL BREATHING PATTERN - Cardiovascular Exam Cardiovascular Exam: +S1, +S2 - GI/Abdominal Exam GI & Abdominal Exam: Soft - Extremities Exam Extremities Exam: Full ROM - Back Exam Back Exam: Full ROM - Neurological Exam Neurological Exam: Awake - Psychiatric Exam Psychiatric exam: Flat Affect - Skin Skin Exam: Normal Color, Warm Objective - Vital Signs/Intake and Output Vital Signs (last 24 hours): Temp Pulse Resp BP Pulse Ox 98 F 88 20 113/61 95 09/11/17 16:00 09/11/17 20:03 09/11/17 16:00 09/11/17 17:57 09/11/17 16:00 Intake and Output: 09/11/17 09/12/17 18:59 06:59 Intake Total 540 Balance 540 - Medications Medications: Current Medications Acetylcysteine (Acetylcysteine 20%) 4 ml INH RQ6 [facility] Last Admin: 09/11/17 19:50 Dose: 4 ml Albuterol/Ipratropium (Duoneb 3 Mg/0.5 Mg (3 Ml) Ud) 3 ml INH RQ6 [facility] Last Admin: 09/11/17 19:50 Dose: 3 ml Apixaban (Eliquis) 2.5 mg PO BID [facility] Last Admin: 09/11/17 17:49 Dose: 2.5 mg Aspirin (Aspirin Chewable) 81 mg PO DAILY [facility] Last Admin: 09/11/17 10:57 Dose: 81 mg Calcium Acetate (Phoslo) 2,001 mg GT TIDCC [facility] Last Admin: 09/11/17 17:05 Dose: 2,001 mg Collagenase (Santyl) 0 gm TOP DAILY [facility] Last Admin: 09/11/17 10:57 Dose: Not Given Epoetin Chencho (Procrit) 10,000 unit IV MWF [facility] Last Admin: 09/09/17 16:12 Dose: 10,000 unit Famotidine (Pepcid) 20 mg PO DAILY [facility] Last Admin: 09/11/17 10:57 Dose: 20 mg Vancomycin HCl 1 gm/ Sodium (Chloride) 250 mls @ 166.7 mls/hr IVPB MWF [facility] Last Admin: 09/09/17 08:51 Dose: 166.7 mls/hr Insulin Aspart (Novolog) 0 unit SC Q6 [facility] PRN Reason: Protocol Last Admin: 09/11/17 17:48 Dose: 2 unit Insulin Detemir (Levemir) 43 unit SC Q12 [facility] Last Admin: 09/11/17 10:57 Dose: 43 unit Lactobacillus Acidophilus (Bacid Acidophilus) 1 cap PO BID [facility] Last Admin: 09/11/17 17:49 Dose: 1 cap Lisinopril (Zestril) 5 mg PO DAILY [facility] Last Admin: 09/11/17 10:57 Dose: Not Given Metoprolol Tartrate (Lopressor) 50 mg PO BID [facility] Last Admin: 09/11/17 17:49 Dose: 50 mg Rosuvastatin Calcium (Crestor) 10 mg PO HS [facility] Last Admin: 08/26/17 22:41 Dose: 10 mg - Labs Labs: 09/11/17 08:22 09/11/17 08:22 PT 13.9 SECONDS (9.7-12.2) H 08/24/17 06:08 INR 1.2 08/24/17 06:08 APTT 55 SECONDS (21-34) H D 08/17/17 06:12 Assessment and Plan - Assessment and Plan (Free Text) Assessment: Paraxysmal a Fib Intermittent On Metoprolol 50 mg PO BID, Eliquis 2.5 mg PO BID CAD, chest pain -No current plans for cardiac cath (acute respiratory failure and elevated Cr) , history of abnormal stress test -Elevated Troponin likely due to chest compressions during cardiac arrest 08/10 -No acute ST changes on EKG -Continue ASA, Crestor, Metoprolol. Plavix discontinued. -Echocardiogram from 08/08/17 showed left ventricle systolic function is severely impaired. EF: 25-30%; global hypokinesis of LV mild AR. MR is moderate. Moderate-severe pulmonary hypertension Systolic CHF exacerbation -CXR 09/09: Diminished bilateral basilar airspace disease; stable cardiomegaly -BNP [id number] on 08/06/17 -Continue ASA, Crestor, Metoprolol -Echocardiogram from 08/08/17 showed left ventricle systolic function is severely impaired. EF: 25-30%; global hypokinesis of LV mild AR. MR is moderate. Moderate-severe pulmonary hypertesnion Dobutamine discontinued in light of atrial flutter-type episodes Diabetes Mellitus ISS Continue to monitor ESRD on HD HD due today On Procrit and Phoslo Nephro on the case Prophylaxis Pepcid 20 mg PO daily Eliquis 2.5 mg PO BID (Renal precautions) Disposition Awaiting Transfer to [facility]
[2017-09-12] MEDS: (Novolog) Insulin Aspart, Recombinant 100 u/ml 10 ml vial SC SCH ×4 (00:12→13:05)
[2017-09-12] MEDS: Albuterol-Ipratrop 3 mg / 0.5 (3 ml) UD INH SCH ×4 (01:44→19:41)
[2017-09-12] MEDS: Acetylcysteine 20% Inhal Soln (4ml) INH SCH ×4 (01:44→19:41)
[2017-09-12 07:29] LABS: BASO # 0.1 K/uL (0.0-0.2); BASO % 0.6 % (0.0-2.0); EOS # 0.5 K/uL (0.0-0.7); EOS % 3.6 % (0.0-4.0); HEMATOCRIT 29.3 % (35.0-51.0); LYMPH % 13.9 % (20.0-40.0); MEAN CELL VOLUME 76.7 fL (80.0-94.0); MEAN CORPUSCULAR HEMOGLOBIN 23.9 pg (27.0-31.0); MEAN CORPUSCULAR HGB CONC 31.1 g/dL (33.0-37.0); MEAN PLATELET VOLUME 8.1 fL (7.2-11.7); MONO # 0.8 K/uL (0.0-0.8); MONO % 5.8 % (0.0-10.0); RED CELL DISTRIBUTION WIDTH 23.2 % (11.5-14.5); WHITE BLOOD COUNT 14.4 K/uL (4.8-10.8)
[2017-09-12 08:12] LABS: POTASSIUM 4.3 mmol/L (3.6-5.2)
[2017-09-12 08:14] LABS: ALB/GLOB RATIO 0.7 (1.0-2.1); BILIRUBIN,TOTAL 0.5 mg/dL (0.2-1.3); TOTAL PROTEIN 7.4 g/dL (6.3-8.3)
[2017-09-12 08:15] LABS: CALCIUM 11.3 mg/dl (8.6-10.4)
[2017-09-12 08:56] LABS: PHOSPHOROUS 4.1 mg/dL (2.5-4.5)
[2017-09-12] MEDS: Insulin Detemir 100 units/ml Vial (Levemir) SC SCH ×2 (10:32→22:08)
[2017-09-12] MEDS: Lactobacillus Acidophilus 500 MU Cap PO SCH ×2 (10:33→21:24)
[2017-09-12] MEDS: Collagenase 250 Units/gm Ointment(30 gm) TOP SCH (11:00)
--- NOTE | 2017-09-12 11:50 | CP.PCM.PN ---
Subjective - Date & Time of Evaluation Date of Evaluation: 09/12/17 Time of Evaluation: 08:00 - Subjective Subjective: awake confused on trach collar no fever + secretions from trach Objective - Vital Signs/Intake and Output Vital Signs (last 24 hours): Temp Pulse Resp BP Pulse Ox 98.2 F 110 H 18 99/48 L 96 09/12/17 08:00 09/12/17 08:00 09/12/17 08:00 09/12/17 08:00 09/12/17 08:00 Intake and Output: 09/12/17 09/12/17 06:59 18:59 Intake Total 400 Balance 400 - Medications Medications: Current Medications Acetylcysteine (Acetylcysteine 20%) 4 ml INH RQ6 [facility] Last Admin: 09/12/17 08:35 Dose: 4 ml Albuterol/Ipratropium (Duoneb 3 Mg/0.5 Mg (3 Ml) Ud) 3 ml INH RQ6 [facility] Last Admin: 09/12/17 08:35 Dose: 3 ml Apixaban (Eliquis) 2.5 mg PO BID [facility] Last Admin: 09/12/17 10:33 Dose: 2.5 mg Aspirin (Aspirin Chewable) 81 mg PO DAILY [facility] Last Admin: 09/12/17 10:33 Dose: 81 mg Calcium Acetate (Phoslo) 2,001 mg GT TIDCC [facility] Last Admin: 09/12/17 09:30 Dose: 2,001 mg Collagenase (Santyl) 0 gm TOP DAILY [facility] Last Admin: 09/11/17 10:57 Dose: Not Given Epoetin Chencho (Procrit) 10,000 unit IV MWF [facility] Last Admin: 09/09/17 16:12 Dose: 10,000 unit Famotidine (Pepcid) 20 mg PO DAILY [facility] Last Admin: 09/12/17 10:33 Dose: 20 mg Vancomycin HCl 1 gm/ Sodium (Chloride) 250 mls @ 166.7 mls/hr IVPB MWF [facility] Last Admin: 09/09/17 08:51 Dose: 166.7 mls/hr Metronidazole (Flagyl) 250 mg in 50 mls @ 100 mls/hr IVPB Q8 [facility] Stop: 09/17/17 14:01 Insulin Aspart (Novolog) 0 unit SC Q6 [facility] PRN Reason: Protocol Last Admin: 09/12/17 08:06 Dose: 2 unit Insulin Detemir (Levemir) 43 unit SC Q12 [facility] Last Admin: 09/12/17 10:32 Dose: 43 unit Lactobacillus Acidophilus (Bacid Acidophilus) 1 cap PO BID [facility] Last Admin: 09/12/17 10:33 Dose: 1 cap Lisinopril (Zestril) 5 mg PO DAILY [facility] Last Admin: 09/12/17 10:33 Dose: 5 mg Metoprolol Tartrate (Lopressor) 50 mg PO BID [facility] Last Admin: 09/12/17 10:33 Dose: 50 mg Rosuvastatin Calcium (Crestor) 10 mg PO HS [facility] Last Admin: 08/26/17 22:41 Dose: 10 mg - Labs Labs: 09/12/17 07:10 09/12/17 07:10 PT 13.9 SECONDS (9.7-12.2) H 08/24/17 06:08 INR 1.2 08/24/17 06:08 APTT 55 SECONDS (21-34) H D 08/17/17 06:12 - Constitutional Appears: Non-toxic, Chronically Ill - Head Exam Head Exam: NORMOCEPHALIC - Eye Exam Eye Exam: PERRL. absent: Scleral icterus - ENT Exam ENT Exam: Mucous Membranes Dry - Neck Exam Neck Exam: absent: Lymphadenopathy - Respiratory Exam Respiratory Exam: Decreased Breath Sounds, Rhonchi - Cardiovascular Exam Cardiovascular Exam: REGULAR RHYTHM - GI/Abdominal Exam GI & Abdominal Exam: Distended, Soft - Rectal Exam Rectal Exam: Deferred - Exam Exam: NORMAL INSPECTION - Extremities Exam Extremities Exam: absent: Pedal Edema - Back Exam Back Exam: absent: CVA tenderness (L), CVA tenderness (R) - Neurological Exam Neurological Exam: Alert, Altered, Awake - Psychiatric Exam Psychiatric exam: Normal Mood - Skin Skin Exam: Dry Assessment and Plan (1) ARDS (adult respiratory distress syndrome) Status: Acute (2) Acute on chronic renal failure Status: Acute (3) CHF (congestive heart failure) Status: Acute (4) Cardiac arrest Status: Acute (5) ESRD (end stage renal disease) Status: Acute (6) Leukocytosis Status: Acute (7) Pneumonia Status: Acute (8) Type 2 diabetes mellitus with diabetic nephropathy Status: Acute - Assessment and Plan (Free Text) Assessment: enterobacter and yeast from sputum may have tracheobronchitis ? cont po rx Plan: add bactrim/ diflucan
--- NOTE | 2017-09-12 11:51 | CP.PCM.PN ---
Subjective - Date & Time of Evaluation Date of Evaluation: 09/12/17 Time of Evaluation: 09:00 - Subjective Subjective: Patient seen and examined. Status post tracheostomy on trach collar Lethargic but no respiratory distress Afebrile Objective - Vital Signs/Intake and Output Vital Signs (last 24 hours): Temp Pulse Resp BP Pulse Ox 98.2 F 110 H 18 99/48 L 96 09/12/17 08:00 09/12/17 08:00 09/12/17 08:00 09/12/17 08:00 09/12/17 08:00 Intake and Output: 09/12/17 09/12/17 06:59 18:59 Intake Total 400 Balance 400 - Medications Medications: Current Medications Acetylcysteine (Acetylcysteine 20%) 4 ml INH RQ6 [facility] Last Admin: 09/12/17 08:35 Dose: 4 ml Albuterol/Ipratropium (Duoneb 3 Mg/0.5 Mg (3 Ml) Ud) 3 ml INH RQ6 [facility] Last Admin: 09/12/17 08:35 Dose: 3 ml Apixaban (Eliquis) 2.5 mg PO BID [facility] Last Admin: 09/12/17 10:33 Dose: 2.5 mg Aspirin (Aspirin Chewable) 81 mg PO DAILY [facility] Last Admin: 09/12/17 10:33 Dose: 81 mg Calcium Acetate (Phoslo) 2,001 mg GT TIDCC [facility] Last Admin: 09/12/17 09:30 Dose: 2,001 mg Collagenase (Santyl) 0 gm TOP DAILY [facility] Last Admin: 09/11/17 10:57 Dose: Not Given Epoetin Chencho (Procrit) 10,000 unit IV MWF [facility] Last Admin: 09/09/17 16:12 Dose: 10,000 unit Famotidine (Pepcid) 20 mg PO DAILY [facility] Last Admin: 09/12/17 10:33 Dose: 20 mg Vancomycin HCl 1 gm/ Sodium (Chloride) 250 mls @ 166.7 mls/hr IVPB MWF [facility] Last Admin: 09/09/17 08:51 Dose: 166.7 mls/hr Metronidazole (Flagyl) 250 mg in 50 mls @ 100 mls/hr IVPB Q8 [facility] Stop: 09/17/17 14:01 Insulin Aspart (Novolog) 0 unit SC Q6 [facility] PRN Reason: Protocol Last Admin: 09/12/17 08:06 Dose: 2 unit Insulin Detemir (Levemir) 43 unit SC Q12 [facility] Last Admin: 09/12/17 10:32 Dose: 43 unit Lactobacillus Acidophilus (Bacid Acidophilus) 1 cap PO BID [facility] Last Admin: 09/12/17 10:33 Dose: 1 cap Lisinopril (Zestril) 5 mg PO DAILY [facility] Last Admin: 09/12/17 10:33 Dose: 5 mg Metoprolol Tartrate (Lopressor) 50 mg PO BID [facility] Last Admin: 09/12/17 10:33 Dose: 50 mg Rosuvastatin Calcium (Crestor) 10 mg PO HS [facility] Last Admin: 08/26/17 22:41 Dose: 10 mg - Labs Labs: 09/12/17 07:10 09/12/17 07:10 PT 13.9 SECONDS (9.7-12.2) H 08/24/17 06:08 INR 1.2 08/24/17 06:08 APTT 55 SECONDS (21-34) H D 08/17/17 06:12 - Head Exam Head Exam: ATRAUMATIC, NORMOCEPHALIC - ENT Exam ENT Exam: Mucous Membranes Moist - Neck Exam Neck Exam: Normal Inspection - Respiratory Exam Respiratory Exam: Decreased Breath Sounds - Cardiovascular Exam Cardiovascular Exam: REGULAR RHYTHM - GI/Abdominal Exam GI & Abdominal Exam: Soft, Normal Bowel Sounds - Extremities Exam Extremities Exam: Normal Inspection Assessment and Plan (1) Cardiac arrest Assessment & Plan: Status post cardiac arrest Patient appears lethargic today Status post tracheostomy Continue antibiotics Continue hemodialysis Status: Acute (2) Pneumonia Status: Acute (3) History of DVT (deep vein thrombosis) Status: Acute (4) CKD (chronic kidney disease) Status: Chronic (5) Acute on chronic renal failure Status: Acute (6) CHF (congestive heart failure) Status: Acute
--- NOTE | 2017-09-12 12:09 | CP.PCM.PN ---
Subjective - Date & Time of Evaluation Date of Evaluation: 09/12/17 Time of Evaluation: 12:06 - Subjective Subjective: Same poor mental status- confused for dialysis today No fevers, chills, diarrhea, n, v, CPs BUN elevated>120 Ca increased Objective - Vital Signs/Intake and Output Vital Signs (last 24 hours): Temp Pulse Resp BP Pulse Ox 98.2 F 110 H 18 99/48 L 96 09/12/17 08:00 09/12/17 08:00 09/12/17 08:00 09/12/17 08:00 09/12/17 08:00 Intake and Output: 09/12/17 09/12/17 06:59 18:59 Intake Total 400 Balance 400 - Medications Medications: Current Medications Acetylcysteine (Acetylcysteine 20%) 4 ml INH RQ6 [facility] Last Admin: 09/12/17 08:35 Dose: 4 ml Albuterol/Ipratropium (Duoneb 3 Mg/0.5 Mg (3 Ml) Ud) 3 ml INH RQ6 [facility] Last Admin: 09/12/17 08:35 Dose: 3 ml Apixaban (Eliquis) 2.5 mg PO BID [facility] Last Admin: 09/12/17 10:33 Dose: 2.5 mg Aspirin (Aspirin Chewable) 81 mg PO DAILY [facility] Last Admin: 09/12/17 10:33 Dose: 81 mg Collagenase (Santyl) 0 gm TOP DAILY [facility] Last Admin: 09/11/17 10:57 Dose: Not Given Epoetin Chencho (Procrit) 10,000 unit IV MWF [facility] Last Admin: 09/09/17 16:12 Dose: 10,000 unit Famotidine (Pepcid) 20 mg PO DAILY [facility] Last Admin: 09/12/17 10:33 Dose: 20 mg Fluconazole (Diflucan) 200 mg PO DAILY [facility] Vancomycin HCl 1 gm/ Sodium (Chloride) 250 mls @ 166.7 mls/hr IVPB MWF [facility] Last Admin: 09/09/17 08:51 Dose: 166.7 mls/hr Metronidazole (Flagyl) 250 mg in 50 mls @ 100 mls/hr IVPB Q8 [facility] Stop: 09/17/17 14:01 Insulin Aspart (Novolog) 0 unit SC Q6 [facility] PRN Reason: Protocol Last Admin: 09/12/17 08:06 Dose: 2 unit Insulin Detemir (Levemir) 43 unit SC Q12 [facility] Last Admin: 09/12/17 10:32 Dose: 43 unit Lactobacillus Acidophilus (Bacid Acidophilus) 1 cap PO BID [facility] Last Admin: 09/12/17 10:33 Dose: 1 cap Lisinopril (Zestril) 5 mg PO DAILY [facility] Last Admin: 09/12/17 10:33 Dose: 5 mg Metoprolol Tartrate (Lopressor) 50 mg PO BID [facility] Last Admin: 09/12/17 10:33 Dose: 50 mg Rosuvastatin Calcium (Crestor) 10 mg PO HS [facility] Last Admin: 08/26/17 22:41 Dose: 10 mg Sevelamer Carbonate (Renvela) 1.6 gm GT TIDCC [facility] Trimethoprim/Sulfamethoxazole (Sulfatrim Pediatric Susp) 10 ml PO Q12 [facility] - Labs Labs: 09/12/17 07:10 09/12/17 07:10 PT 13.9 SECONDS (9.7-12.2) H 08/24/17 06:08 INR 1.2 08/24/17 06:08 APTT 55 SECONDS (21-34) H D 08/17/17 06:12 - Constitutional Appears: No Acute Distress, Chronically Ill - Head Exam Head Exam: ATRAUMATIC, NORMAL INSPECTION - Eye Exam Eye Exam: EOMI, Normal appearance - Neck Exam Neck Exam: Normal Inspection. absent: Tenderness - Cardiovascular Exam Cardiovascular Exam: REGULAR RHYTHM, +S1 - GI/Abdominal Exam GI & Abdominal Exam: Soft. absent: Tenderness - Extremities Exam Extremities Exam: Normal Inspection. absent: Tenderness - Neurological Exam Neurological Exam: Altered, Motor Sensory Deficit - Skin Skin Exam: Dry, Warm Assessment and Plan (1) Acute on chronic renal failure Status: Acute (2) CAD (coronary artery disease) Status: Chronic (3) CHF exacerbation Status: Chronic (4) Type 2 diabetes mellitus with diabetic nephropathy Status: Acute (5) CKD stage 4 due to type 2 diabetes mellitus Status: Acute (6) Cardiorenal disease Status: Acute (7) ESRD (end stage renal disease) Status: Acute - Assessment and Plan (Free Text) Plan: Dialysis MWF- today change binders to renvela increase time on machine; continue large dialyzer for increased BUN
[2017-09-12] MEDS ORDERED: metroNIDAZOLE IV 250mg/50 ml 250 MG/50 ML BAG IVPB SCH (14:00)
--- NOTE | 2017-09-12 16:02 | CP.PCM.PN ---
<Darryl Roe - Last Filed: 09/12/17 16:02> Subjective - Date & Time of Evaluation Date of Evaluation: 09/12/17 Time of Evaluation: 09:42 - Subjective Subjective: Cardiology Progress Note- Dr. Cortés's service Patient seen and examined in no acute distress. Patient does not follow commands. He moves his arms and looks from side to side- often in a spontaneous manner. Patient not able to respond to ROS at this time due to his presentation Objective - Vital Signs/Intake and Output Vital Signs (last 24 hours): Temp Pulse Resp BP Pulse Ox 98.4 F 91 H 24 124/103 H 96 09/12/17 15:05 09/12/17 15:05 09/12/17 15:05 09/12/17 15:20 09/12/17 08:00 Intake and Output: 09/12/17 09/12/17 06:59 18:59 Intake Total 400 Balance 400 - Medications Medications: Current Medications Acetylcysteine (Acetylcysteine 20%) 4 ml INH RQ6 [facility] Last Admin: 09/12/17 14:09 Dose: 4 ml Albuterol/Ipratropium (Duoneb 3 Mg/0.5 Mg (3 Ml) Ud) 3 ml INH RQ6 [facility] Last Admin: 09/12/17 14:09 Dose: 3 ml Apixaban (Eliquis) 2.5 mg PO BID [facility] Last Admin: 09/12/17 10:33 Dose: 2.5 mg Aspirin (Aspirin Chewable) 81 mg PO DAILY [facility] Last Admin: 09/12/17 10:33 Dose: 81 mg Collagenase (Santyl) 0 gm TOP DAILY [facility] Last Admin: 09/11/17 10:57 Dose: Not Given Epoetin Chencho (Procrit) 10,000 unit IV MWF [facility] Last Admin: 09/09/17 16:12 Dose: 10,000 unit Famotidine (Pepcid) 20 mg PO DAILY [facility] Last Admin: 09/12/17 10:33 Dose: 20 mg Fluconazole (Diflucan) 200 mg PO DAILY [facility] Vancomycin HCl 1 gm/ Sodium (Chloride) 250 mls @ 166.7 mls/hr IVPB MWF [facility] Last Admin: 09/09/17 08:51 Dose: 166.7 mls/hr Metronidazole (Flagyl) 250 mg in 50 mls @ 100 mls/hr IVPB Q8 [facility] Stop: 09/17/17 14:01 Insulin Aspart (Novolog) 0 unit SC Q6 [facility] PRN Reason: Protocol Last Admin: 09/12/17 13:05 Dose: 2 unit Insulin Detemir (Levemir) 43 unit SC Q12 [facility] Last Admin: 09/12/17 10:32 Dose: 43 unit Lactobacillus Acidophilus (Bacid Acidophilus) 1 cap PO BID [facility] Last Admin: 09/12/17 10:33 Dose: 1 cap Lisinopril (Zestril) 5 mg PO DAILY [facility] Last Admin: 09/12/17 10:33 Dose: 5 mg Metoprolol Tartrate (Lopressor) 50 mg PO BID [facility] Last Admin: 09/12/17 10:33 Dose: 50 mg Rosuvastatin Calcium (Crestor) 10 mg PO HS [facility] Last Admin: 08/26/17 22:41 Dose: 10 mg Sevelamer Carbonate (Renvela) 1.6 gm GT TIDCC [facility] Trimethoprim/Sulfamethoxazole (Sulfatrim Pediatric Susp) 10 ml PO Q12 [facility] - Labs Labs: 09/12/17 07:10 09/12/17 07:10 PT 13.9 SECONDS (9.7-12.2) H 08/24/17 06:08 INR 1.2 08/24/17 06:08 APTT 55 SECONDS (21-34) H D 08/17/17 06:12 - Constitutional Appears: Non-toxic, No Acute Distress - Head Exam Head Exam: ATRAUMATIC, NORMAL INSPECTION, NORMOCEPHALIC - Eye Exam Eye Exam: EOMI - ENT Exam ENT Exam: Mucous Membranes Moist - Respiratory Exam Respiratory Exam: NORMAL BREATHING PATTERN - Cardiovascular Exam Cardiovascular Exam: Irregular Rhythm, +S1, +S2. absent: JVD - GI/Abdominal Exam GI & Abdominal Exam: Soft - Neurological Exam Neurological Exam: Altered - Psychiatric Exam Psychiatric exam: Flat Affect - Skin Skin Exam: Dry, Warm Assessment and Plan (1) Chest pain Status: Acute (2) CHF exacerbation Status: Chronic (3) Pneumonia Status: Acute (4) CAD (coronary artery disease) Status: Chronic (5) HTN (hypertension) Status: Chronic (6) CKD (chronic kidney disease) Status: Chronic (7) Diabetes mellitus Status: Chronic (8) HLD (hyperlipidemia) Status: Chronic (9) Constipation Status: Chronic (10) Anemia Status: Chronic (11) History of DVT (deep vein thrombosis) Status: Acute (12) Prophylactic measure Status: Acute - Assessment and Plan (Free Text) Assessment: Hx of Atrial Flutter Intermittent Likely due to Dobutamine administration which has since been discontinued Amiodarone discontinued; Will monitor to see that patient is rate controlled. On Metoprolol 50 mg PO BID, Eliquis 2.5 mg PO BID CAD, chest pain -No current plans for cardiac cath (acute respiratory failure and elevated Cr) , history of abnormal stress test -Elevated Troponin likely due to chest compressions during cardiac arrest 08/10 -No acute ST changes on EKG -Continue ASA, Crestor, Metoprolol. -Echocardiogram from 08/08/17 showed left ventricle systolic function is severely impaired. EF: 25-30%; global hypokinesis of LV mild AR. MR is moderate. Moderate-severe pulmonary hypertension Systolic CHF exacerbation -CXR 09/09: Diminished bilateral basilar airspace disease; stable cardiomegaly -BNP 52912 on 08/06/17 -Continue ASA, Crestor, Metoprolol -Echocardiogram from 08/08/17 showed left ventricle systolic function is severely impaired. EF: 25-30%; global hypokinesis of LV mild AR. MR is moderate. Moderate-severe pulmonary hypertesnion Dobutamine discontinued in light of atrial flutter-type episodes Diabetes Mellitus ISS Continue to monitor ESRD on HD HD due today On Procrit and Phoslo Nephro on the case Prophylaxis Pepcid 20 mg PO daily Eliquis 2.5 mg PO BID (Renal precautions) Disposition Awaiting Transfer to LTAC Discussed with attending. All management and planning per Dr. Cortés <Sina Cortés - Last Filed: 09/12/17 21:49> Objective - Vital Signs/Intake and Output Vital Signs (last 24 hours): Temp Pulse Resp BP Pulse Ox 98.5 F 101 H 16 85/75 L 96 09/12/17 18:50 09/12/17 19:00 09/12/17 18:50 09/12/17 18:50 09/12/17 08:00 - Medications Medications: Current Medications Acetylcysteine (Acetylcysteine 20%) 4 ml INH RQ6 [facility] Last Admin: 09/12/17 19:41 Dose: 4 ml Albuterol/Ipratropium (Duoneb 3 Mg/0.5 Mg (3 Ml) Ud) 3 ml INH RQ6 [facility] Last Admin: 09/12/17 19:41 Dose: 3 ml Apixaban (Eliquis) 2.5 mg PO BID [facility] Last Admin: 09/12/17 10:33 Dose: 2.5 mg Aspirin (Aspirin Chewable) 81 mg PO DAILY [facility] Last Admin: 09/12/17 10:33 Dose: 81 mg Collagenase (Santyl) 0 gm TOP DAILY [facility] Last Admin: 09/12/17 11:00 Dose: Not Given Epoetin Chencho (Procrit) 10,000 unit IV F [facility] Last Admin: 09/12/17 16:23 Dose: 10,000 unit Famotidine (Pepcid) 20 mg PO DAILY [facility] Last Admin: 09/12/17 10:33 Dose: 20 mg Fluconazole (Diflucan) 200 mg PO DAILY [facility] Vancomycin HCl 1 gm/ Sodium (Chloride) 250 mls @ 166.7 mls/hr IVPB MWF [facility] Last Admin: 09/09/17 08:51 Dose: 166.7 mls/hr Insulin Aspart (Novolog) 0 unit SC Q6 [facility] PRN Reason: Protocol Last Admin: 09/12/17 13:05 Dose: 2 unit Insulin Detemir (Levemir) 43 unit SC Q12 [facility] Last Admin: 09/12/17 10:32 Dose: 43 unit Lactobacillus Acidophilus (Bacid Acidophilus) 1 cap PO BID [facility] Last Admin: 09/12/17 21:24 Dose: 1 cap Lisinopril (Zestril) 5 mg PO DAILY [facility] Last Admin: 09/12/17 10:33 Dose: 5 mg Metoprolol Tartrate (Lopressor) 50 mg PO BID [facility] Last Admin: 09/12/17 21:39 Dose: Not Given Rosuvastatin Calcium (Crestor) 10 mg PO HS [facility] Last Admin: 08/26/17 22:41 Dose: 10 mg Sevelamer Carbonate (Renvela) 1.6 gm GT TIDCC [facility] Last Admin: 09/12/17 21:25 Dose: 1.6 gm Trimethoprim/Sulfamethoxazole (Sulfatrim Pediatric Susp) 10 ml PO Q12 [facility] Last Admin: 09/12/17 21:26 Dose: 10 ml - Labs Labs: 09/12/17 07:10 09/12/17 07:10 PT 13.9 SECONDS (9.7-12.2) H 08/24/17 06:08 INR 1.2 08/24/17 06:08 APTT 55 SECONDS (21-34) H D 08/17/17 06:12 Assessment and Plan - Assessment and Plan (Free Text) Assessment: Patient seen and evaluated with the emergency medical service manager Plan of care as documented
[2017-09-12] MEDS: Epoetin Alfa 10,000 unit/ml Dialysis IV SCH (16:23)
--- NOTE | 2017-09-12 16:26 | CP.PCM.PN ---
<Tangela Sanchez - Last Filed: 09/12/17 16:29> Subjective - Date & Time of Evaluation Date of Evaluation: 09/12/17 Time of Evaluation: 10:00 - Subjective Subjective: Progress note for Dr. Stoll Patient seen and examined at bedside. Patient does not verbally answer questions or follow commands. unable to fully assess patient. Objective - Vital Signs/Intake and Output Vital Signs (last 24 hours): Temp Pulse Resp BP Pulse Ox 98.4 F 91 H 20 124/103 H 96 09/12/17 16:09 09/12/17 16:09 09/12/17 16:09 09/12/17 16:09 09/12/17 08:00 Intake and Output: 09/12/17 09/12/17 06:59 18:59 Intake Total 400 Balance 400 - Medications Medications: Current Medications Acetylcysteine (Acetylcysteine 20%) 4 ml INH RQ6 [facility] Last Admin: 09/12/17 14:09 Dose: 4 ml Albuterol/Ipratropium (Duoneb 3 Mg/0.5 Mg (3 Ml) Ud) 3 ml INH RQ6 [facility] Last Admin: 09/12/17 14:09 Dose: 3 ml Apixaban (Eliquis) 2.5 mg PO BID [facility] Last Admin: 09/12/17 10:33 Dose: 2.5 mg Aspirin (Aspirin Chewable) 81 mg PO DAILY [facility] Last Admin: 09/12/17 10:33 Dose: 81 mg Collagenase (Santyl) 0 gm TOP DAILY [facility] Last Admin: 09/11/17 10:57 Dose: Not Given Epoetin Chencho (Procrit) 10,000 unit IV [facility] [place] [place] Last Admin: 09/12/17 16:23 Dose: 10,000 unit Famotidine (Pepcid) 20 mg PO DAILY [facility] Last Admin: 09/12/17 10:33 Dose: 20 mg Fluconazole (Diflucan) 200 mg PO DAILY [facility] Vancomycin HCl 1 gm/ Sodium (Chloride) 250 mls @ 166.7 mls/hr IVPB MWF [facility] Last Admin: 09/09/17 08:51 Dose: 166.7 mls/hr Insulin Aspart (Novolog) 0 unit SC Q6 [facility] PRN Reason: Protocol Last Admin: 09/12/17 13:05 Dose: 2 unit Insulin Detemir (Levemir) 43 unit SC Q12 [facility] Last Admin: 09/12/17 10:32 Dose: 43 unit Lactobacillus Acidophilus (Bacid Acidophilus) 1 cap PO BID [facility] Last Admin: 09/12/17 10:33 Dose: 1 cap Lisinopril (Zestril) 5 mg PO DAILY [facility] Last Admin: 09/12/17 10:33 Dose: 5 mg Metoprolol Tartrate (Lopressor) 50 mg PO BID [facility] Last Admin: 09/12/17 10:33 Dose: 50 mg Rosuvastatin Calcium (Crestor) 10 mg PO HS [facility] Last Admin: 08/26/17 22:41 Dose: 10 mg Sevelamer Carbonate (Renvela) 1.6 gm GT TIDCC [facility] Trimethoprim/Sulfamethoxazole (Sulfatrim Pediatric Susp) 10 ml PO Q12 [facility] - Labs Labs: 09/12/17 07:10 09/12/17 07:10 PT 13.9 SECONDS (9.7-12.2) H 08/24/17 06:08 INR 1.2 08/24/17 06:08 APTT 55 SECONDS (21-34) H D 08/17/17 06:12 - Constitutional Appears: Non-toxic - Head Exam Additional comments: patient has a skin lesion on left auricle, dressing is on and intact - Eye Exam Additional comments: patient has eyes closed. unable to assess occular motion - ENT Exam ENT Exam: Mucous Membranes Moist - Neck Exam Neck Exam: Full ROM - Respiratory Exam Respiratory Exam: NORMAL BREATHING PATTERN. absent: Accessory Muscle Use, Respiratory Distress - Cardiovascular Exam Cardiovascular Exam: +S1, +S2. absent: Bradycardia, Tachycardia - GI/Abdominal Exam GI & Abdominal Exam: Soft Additional comments: PEG - Extremities Exam Extremities Exam: Full ROM. 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 ARDS, Cardiac Arrest, Pulmonary Edema, NSTEMI 08/27: patient is pending LTAC, he went eventually need cardiac catheterization when he has stabilized. Per cardiology consult, lowered Amiodarone 200mg PO daily due to elevated LFTs, statin also held Abnormal Stress Test History of AICD History of Coronary Artery Disease Cardiology Consult Dr. Cortés TSH: 1.16; T4: 1.53 08/08 Echo: EF: 25-30% global hypokinesis of left ventricle mild aortic regurgitation. moderate Mitral regurgitation. Moderate-severe pulmonary hypertension original plan for cardiac catheterization was delayed because of acute Renal failure. Gentle hydration and mucomyst on 08/09 to optimize prior to cath On 08/10, patient was in asystole, ACLS protocol, ROSC achieved, intubated and transferred to the ICU. Atrial flutter Cardiology consult: Dr. Cortés Refractory to Lopressor/Cardizem IVP Eliquis 2.5mg PO bid Amiodarone bolus-->Amiodarine drip on 08/24-->converted to Amiodarone 200mg PO TID on 08/26 08/27: lowered Amiodarone 200mg PO daily and monitor LFTs. Statin held and tylenol d/c 08/29: patient is pending LTAC, he will eventually need cardiac catheterization when he has stabilized. Liver function tests improving. Statin is on hold due to the elevated LFTs 08/30: Cardiology discontinued the Amiodarone (d/t elevated LFTs) 09/07: Held eliquis Acute on Chronic Systolic CHF exacerbation Cardiology consult Dr. Cortés 08/10 Transferred to the ICU after cardiac arrest, CPR, ROSC and intubation. 08/08 Echo: left ventricular systolic function is severely impaired. EF: 25-30%; global hypokinesis of left ventricle mild aortic regurgitation. Mitral regurgitation is moderate. Moderate-severe pulmonary hypertension Medications: Aspirin 81mg PO daily, Plavix d/c by cardiology, Lopressor 50mg PO bid, d/c Crestor 10mg POqHS on 08/27 secondary to rise in LFTs, ARB d/c secondary to acute renal failure Leukocytosis 08/19 Pleural Fluid no growth 08/26 Blood cultures After 48hours - no growth 08/27 UA and urine culture: Urine Culture showed Yeast Species, but were unable to start anti-fungals due to elevated LFTs Reculture Urine, Blood, and Stool should the WBC continue to trend up 09/06: stool culture pending; has not had diarrhea or bowel movement 09/07: Dr. Zimmer on board to cover for Dr. Lawrencepatient recultured 2 days prior Repeat Sputum cultures done due to increase in WBC: enterobactor cloacae and yeast 09/12 Dr. Zimmer: Sulfamethoxazole/TMP 10mcc POQ12H Pneumonia Pulmonary Consult Dr. Mena with Dr. Jeffers covering Infectious Disease Consult Dr. Lawrence 08/26 CXR confirms placement of Right PICC Rapid A strep, Influenza A and B studies, Urine Legionella, Mycoplasma studies = Negative Florastor 250mg PO bid 08/07/17: +Strep Pneumoniae in the urine Meropenem 500mg IV Q 8 hours (08/14/17 through 08/18/17) and Zosyn 2.25 mg IV Q6H (08/13/17 through 08/18/17) Cefepime 1 gm IV Q24H: started on 08/19/17 and was discontinued by ID Dr. Lawrence on 08/30/17: monitor vitals and labs 08/19-08/24 right posterior chest tube 08/19 Sputum Culture shows No growth 08/19 Pleural fluid: No growth 09/08 Repeat Sputum cultures done due to increase in WBC: enterobactor cloacae and yeast 09/12 Dr. Zimmer: Sulfamethoxazole/TMP 10mcc POQ12H HTN (hypertension) Lopressor 50mg PO bid Hx CKD. Patient is on Dialysis, oliguric Nephrology consult: Dr. Miranda 08/15 started on dialysis Kurtis catheter placed and removed 08/22 s/p Right Chest Permcath 07/30 Phoslo 1334mg GT TID Epoetin 10,000 unit IV MWF 09/03: Hyponatremia noted and is trending back up Diabetes mellitus, monitor carbohydrate intake Accuchecks Q6H HgbA1c 8.4 08/26 Started peg feedings, nepro at 50 ml/hour HLD (hyperlipidemia) 08/27: held Crestor 10 mg PO HS secondary to rise in LFTs 08/29: Liver function tests improving; waiting to restart statin Anemia Heme-oncology Consult Dr. Giles Crawford: Ferritin 27.4, Iron 22, TIBC 322, % Saturation 7, likely iron deficiency anemia based on prior admissions Ferric Sodium Gluconate 125mg IVPB daily (active 08/08-08/16) Procrit 10,000 units MWF Monitor CBCs Hx DVT (deep vein thrombosis) Patient was previously on Eliquis for a prior history of DVT. Repeat dopplers 08/09/17 are negative for DVT Off Heparin Drip 08/17/17 Started Eliquis 2.5mg PO BID for atrial flutter and history of DVT UTI Infectious disease Dr. Lawrence with Dr. Goran hamilton. 08/12 Urine Culture showed Gram Negative Rods: NO identification and NO sensitivities were performed Meropenem 500mg IV Q 12hours (08/14-08/18) D Repeat Urine Culture 08/18/17 shows NO growth 08/25: recultured 08/27: pending urine studies 08/30: Urine Culture 08/27/17 showed Yeast Species but no antifungal secondary to recent history of Elevated LFTs Confusion; Alzheimer's Dementia, patient is currently nonverbal Per daughter, patient has been getting bouts of confusion over the past year, but this is his baseline. Patient never saw neurologist formally in outpatient care. 2015 Alzheimers' disease diagnosed in patient 08/10 CT head w/o contrast: acute os subacute lacunar infarct is not excluded in the left inferior basal ganglia with definitive chronic lacunae identified in the superior right basal ganglia. No acute or subacute lobar infarcts. Mild age-related neuro degenerative changes are identifed. No acute intracranial hemorrhage or mass is identified throughout 08/26: Off Sedation, patient is observed to move extremities without following directions 09/09: Patient continues to smile sporadically or have flat affect at times of visit. 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 treatment:medihoney on unstageable ulcer and duoderm on left ear aurical ulcer 09/02/17: examined with Wound Care Nurse Emeka Samuel and periphery of the Sacral Wound is pink with some bleeding however center is still black and therefore still unstageable. Continue spray with Cavelon followed by thick coating with MediHoney followed by covering with OptiFoam once a day. 09/09: santyl ordered to be placed on black eschar center. consider scoring the wound prior to santyl addition to allow for better penetrance of the thick tissue. Elevated LFTs, stable 08/27: elevated LFTs. Discussed with cardiology and decreased Amiodarone 200mg POTID to POQD, Tyelenol was discontinued, statin was held 08/29: starting to down trending since change in amiodarone dose; awaiting to restart statin 08/30: Admiodarone discontinued. LFT trending down. 09/01 - 09/02: AST, ALT, Alk Phos still elevated but stable 09/03-present: LFTs stable Hx Constipation continue to monitor BM Prophylaxis Pepcid 20mg PO daily Eliquis 2.5mg PO BID, on hold SCDs PT eval and treat Contacts: (Jovita Serrano): consented for peg placement 08/26 was contacted and informed about LTAC Dr. Pickard, PMD is aware of patient's hospitalization up until this point 08/[address] Nagi Sanchez, DO PGY1 <Tadeo Stoll - Last Filed: 09/22/17 18:17> Objective - Vital Signs/Intake and Output Vital Signs (last 24 hours): Temp Pulse Resp BP Pulse Ox 98.7 F 89 27 H 144/64 100 09/22/17 11:30 09/22/17 12:00 09/22/17 12:00 09/22/17 11:30 09/22/17 12:00 Intake and Output: 09/22/17 09/22/17 06:59 18:59 Intake Total 0 300 Output Total 0 0 Balance 0 300 - Medications Medications: Current Medications Acetylcysteine (Acetylcysteine 20%) 4 ml INH RQ6 [facility] Last Admin: 09/22/17 13:59 Dose: 4 ml Albuterol/Ipratropium (Duoneb 3 Mg/0.5 Mg (3 Ml) Ud) 3 ml INH RQ6 [facility] Last Admin: 09/22/17 13:59 Dose: 3 ml Apixaban (Eliquis) 2.5 mg PO BID [facility] Last Admin: 09/22/17 11:29 Dose: 2.5 mg Aspirin (Aspirin Chewable) 81 mg PO DAILY [facility] Last Admin: 09/22/17 11:29 Dose: 81 mg Calcium Acetate (Phoslo) 1,334 mg GT TID [facility] Last Admin: 09/22/17 13:19 Dose: 1,334 mg Epoetin Chencho (Procrit) 10,000 unit IV MWF [facility] Last Admin: 09/21/17 10:14 Dose: 10,000 unit Famotidine (Pepcid) 20 mg PO DAILY [facility] Last Admin: 09/22/17 11:30 Dose: 20 mg Fluconazole (Diflucan) 200 mg PO DAILY [facility] Last Admin: 09/22/17 13:17 Dose: 200 mg Heparin Sodium (Porcine) (Heparin) 3,700 units IVP MWF [facility] Tigecycline 50 mg/ Dextrose 100 mls @ 100 mls/hr IVPB Q12H [facility] Insulin Aspart (Novolog) 0 unit SC Q6 [facility] PRN Reason: Protocol Last Admin: 09/22/17 11:39 Dose: 6 unit Insulin Detemir (Levemir) 43 unit SC Q12 [facility] Last Admin: 09/22/17 10:00 Dose: Not Given Lactobacillus Acidophilus (Bacid Acidophilus) 1 cap PO BID [facility] Last Admin: 09/22/17 11:30 Dose: 1 cap Metoprolol Tartrate (Lopressor) 50 mg PO BID [facility] Last Admin: 09/22/17 11:29 Dose: 50 mg Rosuvastatin Calcium (Crestor) 10 mg PO HS [facility] Last Admin: 08/26/17 22:41 Dose: 10 mg - Labs Labs: 09/22/17 06:25 09/22/17 06:25 PT 13.9 SECONDS (9.7-12.2) H 08/24/17 06:08 INR 1.2 08/24/17 06:08 APTT 55 SECONDS (21-34) H D 08/17/17 06:12 Attending/Attestation - Attestation I have personally seen and examined this patient.: Yes I have fully participated in the care of the patient.: Yes I have reviewed all pertinent clinical information, including history, physical exam and plan: Yes Notes (Text): Acute Respiratory Failure, patient has a trach and saturating well on room air. Abnormal Stress Test Atrial flutter Acute on Chronic Systolic CHF exacerbation
[2017-09-12] MEDS ORDERED: Albumin Human 25% (12.5 gm/50 ml) IV ONE (17:00)
[2017-09-12] MEDS: Sevelamer Carb 0.8 gm/Packet GT SCH (21:25)
[2017-09-12] MEDS: Tmp-Smz 200-40mg/5 ml Oral Sus(120 ml) PO SCH (21:26)
[2017-09-13] MEDS: (Novolog) Insulin Aspart, Recombinant 100 u/ml 10 ml vial SC SCH ×6 (00:26→23:59)
[2017-09-13] MEDS: Acetylcysteine 20% Inhal Soln (4ml) INH SCH ×3 (03:08→19:33)
[2017-09-13] MEDS: Albuterol-Ipratrop 3 mg / 0.5 (3 ml) UD INH SCH ×3 (03:08→19:34)
[2017-09-13 07:39] LABS: BASO # 0.1 K/uL (0.0-0.2); BASO % 0.5 % (0.0-2.0); EOS # 0.1 K/uL (0.0-0.7); EOS % 0.7 % (0.0-4.0); HEMATOCRIT 29.4 % (35.0-51.0); LYMPH # 2.1 K/uL (1.0-4.3); LYMPH % 10.7 % (20.0-40.0); MEAN CELL VOLUME 76.7 fL (80.0-94.0); MEAN CORPUSCULAR HEMOGLOBIN 23.7 pg (27.0-31.0); MEAN CORPUSCULAR HGB CONC 30.9 g/dL (33.0-37.0); MEAN PLATELET VOLUME 8.2 fL (7.2-11.7); MONO # 1.2 K/uL (0.0-0.8); MONO % 6.1 % (0.0-10.0); RED CELL DISTRIBUTION WIDTH 23.2 % (11.5-14.5)
[2017-09-13 07:53] LABS: POTASSIUM 4.2 mmol/L (3.6-5.2)
[2017-09-13 07:55] LABS: ALB/GLOB RATIO 0.7 (1.0-2.1); BILIRUBIN,TOTAL 0.5 mg/dL (0.2-1.3); TOTAL PROTEIN 7.5 g/dL (6.3-8.3)
[2017-09-13 07:56] LABS: MAGNESIUM 2.4 mg/dL (1.6-2.3); PHOSPHOROUS 3.3 mg/dL (2.5-4.5)
[2017-09-13] MEDS: Sevelamer Carb 0.8 gm/Packet GT SCH ×3 (08:11→18:08)
[2017-09-13] MEDS: Lactobacillus Acidophilus 500 MU Cap PO SCH ×2 (10:48→18:07)
[2017-09-13] MEDS: Tmp-Smz 200-40mg/5 ml Oral Sus(120 ml) PO SCH ×2 (10:49→22:04)
[2017-09-13] MEDS: Insulin Detemir 100 units/ml Vial (Levemir) SC SCH ×2 (10:49→22:53)
[2017-09-13] MEDS: Collagenase 250 Units/gm Ointment(30 gm) TOP SCH (10:50)
--- NOTE | 2017-09-13 11:47 | CP.PCM.PN ---
Subjective - Date & Time of Evaluation Date of Evaluation: 09/13/17 Time of Evaluation: 11:20 - Subjective Subjective: Hospitalist Progress Note Patient was seen and examined at 11:20 AM 09/13/17 554 A. 77 year old male with extensive medical history (please see Assessment and Plans below) was admitted on 08/06/17 for evaluation of SOB and Chest Pain. He was planned for Cardiac Catheterization on 08/09/17. Patient then had Acute Respiratory Failure and had to be intubated and placed on vent. He is S/P Tracheostomy 08/22/17 and PEG Tube Placement 08/25/17. Please see details below. ROS are not possible as although patient is awake he is not answering (not shaking his head yes or no) Exam: - Head Exam Head Exam: NORMAL INSPECTION - Eye Exam Eye Exam: could not evaluate EOM due to patient's current status Pupil Exam: round, equal, and reactive to light - Respiratory Exam Respiratory Exam: Decreased Breath Sounds bilateral lower lung buchanan but limited due to lack of patient participation Additional comments: Trach Collar - Cardiovascular Exam Cardiovascular Exam: REGULAR RHYTHM, +S1, +S2 - GI/Abdominal Exam GI & Abdominal Exam: Distended, Soft, Decreased Bowel Sounds in the RUQ/RLQ/LLQ and NO bowel sounds in LUQ, could not palpate liver and spleen, PEG Tube Insertion Site LUQ without evidence of cellutlitis. absent: Firm, Guarding, Rigid, Tenderness, Rebound Additional comments: obese habitus - Extremities Exam Extremities Exam: Normal Capillary Refill, Pedal Edema. absent: Tenderness Additional comments: Prevalon boots b/l - Neurological Exam Additional comments: Could not be performed due to lack of patient participation - Skin Skin Exam: Unstageable Sacral Ulcer with NO surrounding signs of cellulitis. Shallow Ulcer Left outer ear (1) Acute Respiratory Failure ARDS Cardiac Arrest Pulmonary Edema Nonstemi Assessment and Plan: * Code Blue on 08/10: asystole, cardiopulmonary resuscitative measures initiated , requiring 3 epis, bicarbonate, ROSC achieved and intubated and brought to the ICU for further management; Patient in the ICU from 08/10 until present. * Pulmonary: Dr Mena (Dr. Jeffers covering until 09/04/17)-->help appreciated * Cardiology: Dr. Cortés on board-->help appreciated * GI (Dr. Wills) on board-->help appreciated * S/P Tracheostomy 08/22 * S/P Peg tube placement 08/25 * s/p insertion of right posterior chest tube 08/19-->removed 08/24/17 * There was consideration for possible thoracentesis of left side pleural effusion, evaluated by IR, there is no fluid to drain per Dr. Gross * Chest xray (08/26): right arm PICC is seen with the tip of distal subclavian vein. PICC may be used * Per cardiology, * Restart Aspirin 81mg PO daily * Patient does not need Plavix at this time * Recommend for Eliquis 2.5mg PO BID for atrial flutter * 08/27: patient is pending LTAC, he went eventually need cardiac catheterization when he has stabilized. Held statin secondary to elevated LFTs. Discussed with Dr. Cortés, lowered Amiodarone 200mg PO daily * 08/28: patient is pending LTAC, he went eventually need cardiac catheterization when he has stabilized. Liver function tests improving * 08/29: [employer] [facility] has sent request to insurance for authorization for LTAC-->pending * 09/06: pending social work/case management approval for LTAC * 09/07: pending social work/case management approval for LTAC * 09/08: Unable to get approval for LTAC; pending other options * 09/09: Transferred from step-down ICU to the floors * 09/13: Trasnferred back to ICU S/P Rapid Response for low blood pressure (2) Abnormal Stress Test History of AICD History of Coronary Artery Disease Assessment and Plan: * Cardiology (Dr. Cortés) on board-->help appreciated * TSH: 1.16; T4: 1.53 * Echocardiogram (08/08/17): left ventricle systolic function is severely impaired. EF: 25-30%; global hypokinesis of left ventricle mild aortic regurgitation. Mitral regurgitation is moderate. Moderate-severe pulmonary hypertension * Plan was for cardiac catheterization; delayed due to acute renal failure; Attempted gentle hydration and mucomyst on 08/09 to optimize prior to cath * On 08/10, patient was in asystole, ACLS protocol, ROSC achieved, intubated and transfered to the ICU. Patient in acute pulmonary edema. * Patient hospitalized in the ICU since 08/10/17 to present. * Medications: * Aspirin 81mg PO daily * Plavix d/c by cardiology * Lopressor 50mg PO bid * d/c Crestor 10mg POqHS secondary to rise in LFTS 08/27--->monitor LFTs daily * ARB d/c secondary to acute renal failure * 08/27: patient is pending LTAC, he went eventually need cardiac catheterization when he has stabilized. Held statin secondary to elevated LFTs. Discussed with Dr. Cortés, lowered Amiodarone 200mg PO daily * 08/28: He will eventually need cardiac catheterization when he has stabilized. Liver function tests improving. Statin is on hold (3) Atrial flutter Assessment and Plan: * Cardiology (Dr. Cortés) on board-->help appreciated * Refractory to Lopressor/Cardizem IVP * Eliquis 2.5mg PO bid * Amiodarone bolus-->Amiodarine drip on 08/24-->converted to Amiodarone 200mg PO TID on 08/26 and this was decreased to 200 mg 1x/day due to increased LFTs * 08/27: Discussed with Dr. Cortés, will lower Amiodarone 200mg PO daily and monitor LFTs. Statin held and tylenol d/c * 08/29: patient is pending LTAC, he will eventually need cardiac catheterization when he has stabilized. Liver function tests improving. Statin is on hold due to the elevated LFTs * 08/30: Cardiology discontinued the Amiodarone * 09/07: Held eliquis; will need to resume * 09/09: Eliquis resumed, off Amiodarone Status: Acute (4) Acute on Chronic Systolic CHF exacerbation Assessment and Plan: * Cardiology (Dr. Cortés) on board-->help appreciated * Transferred to the ICU on 08/10 following cardiac arrest and intubation. * Echocardiogram (08/08/17): left ventricular systolic function is severely impaired. EF: 25-30%; global hypokinesis of left ventricle mild aortic regurgitation. Mitral regurgitation is moderate. Moderate-severe pulmonary hypertension * Medications: * Aspirin 81mg PO daily * Plavix d/c by cardiology * Lopressor 50mg PO bid * d/c Crestor 10mg POqHS on 08/27 secondary to rise in LFTs * ARB d/c secondary to acute renal failure Status: Acute (5) Leukocytosis Assessment and Plan: * Patient's white count downtrending * Pleural Fluid 08/19/17 did not show any growth * Blood cultures (08/26): no growth X5 days * UA and urine culture (08/27): Urine Culture showed Yeast Species. * Patient has elevated LFTs-->did not start anti-fungal in light of LFTs New: * 09/05/17 Blood: gram positive cocci-->pending speciation * 09/05/17 Blood: no growth after 4 days * 09/07/17 Legionella Culture: negative * 09/07/17 Mycobacteria: negative * 09/07/17 Sputum: Enterocloace Bacter; yeast-->f/u sensitivities * 09/07/17 Blood: negative X 48 hours * 09/07/17 Blood: negative X 48 hours * 09/06: stool culture pending; has not had diarrhea or bowel movement * 09/07: Dr. Zimmer (covering Dr. Lawrence) to see the patient given elevated procalcitonin * IV abx: Vancomycin 1 gram MWF (09/09/17) and Meropenem 500 mg IV Q8H (09/13/17 ) * 09/13: F/U Repeat Blood and Urine Culture, Change Right Arm PICC Line, Change Trach Collar Status: Acute (6) Pneumonia Assessment and Plan: * Pulmonary (Dr. Mena) on board-->help appreciated; Dr. Jeffers covering while Dr. Mena away * Infectious Disease (Dr. Lawrence)-->help appreciated * Chest xray (08/26): right arm PICC is seen with the tip of distal subclavian vein. PICC may be used * Rapid A strep, Influenza A and B studies, Urine Legionella, Mycoplasma studies = Negative * Florastor 250mg PO bid * 08/07/17: +Strep Pneumoniae in the urine * Meropenem 500mg IV Q 8 hours (08/14/17 through 08/18/17) and Zosyn 2.25 mg IV Q6H (08/13/17 through 08/18/17) * Cefepime 1 gm IV Q24H: started on 08/19/17 and was discontinued by ID Dr. Lawrence on 08/30/17: monitor vitals and labs * s/p right posterior chest tube 08/19-08/24 * Sputum Culture 08/19/17 shows No growth * Pleural fluid 08/19/17: No growth * 09/07/17 Sputum: Enterocloace Bacter; yeast-->f/u sensitivities * IV abx: IV abx: Vancomycin 1 gram MWF (09/09/17) and Meropenem 500 mg IV Q8H ( 09/13/17) Status: Acute (7) HTN (hypertension) Assessment and Plan: * Lopressor 50mg PO bid * Lisinopril 5mg PO daily Status: Chronic (8) CKD (chronic kidney disease) on Dialysis Assessment and Plan: * Dr. Miranda (nephrology) consulted on the case * Hx of CKD-->Started on dialysis 08/15/17 * Kurtis catheter placed and removed 08/22 * s/p Right Chest Permcath 08/22 * Patient is on dialysis -; oliguric * Phoslo 1334mg GT TID * Epoetin 10,000 unit IV MWF Status: Acute (9) Diabetes mellitus Assessment and Plan: * Accuchecks Q6H * HgbA1c 8.4 * Started peg feedings on 08/26/17 * Nepro-->50 ml/hour but this was held 09/13/17 due suspicion of Bowel Obstruction as NO bowel Movement since 09/07/17. F/U Obstruction Series (10) HLD (hyperlipidemia) Assessment and Plan: * 08/27: held Crestor 10 mg PO HS secondary to rise in LFTs * 08/29: Liver function tests improving; waiting to restart statin Status: Chronic (11) Anemia Assessment and Plan: * Heme-oncology (Dr. Giles bender) on board-->help appreciated * Likely iron deficiency anemia based on prior admissions * Ferritin 27.4, Iron 22, TIBC 322, % Saturation 7 * Ferric Sodium Gluconate 125mg IVPB daily (active 08/08-08/16) * Procrit 10,000 units - * Monitor Hgb/Hct: stable Status: Chronic (12) History of DVT (deep vein thrombosis) Assessment and Plan: * Patient was previously on Eliquis for a prior history of DVT. * Repeat dopplers 08/09/17 are negative for DVT * Off Heparin Drip 08/17/17 * Started Eliquis 2.5mg PO BID for atrial flutter and history of DVT Status: Chronic (13) UTI Assessment and Plan: * Infectious disease (Dr. Lawrence) on board-->help appreciated * Exchange jaquez out and repeat urine cultures * Urine Culture 08/12/17 showed Gram Negative Rods: NO identification and NO sensitivities were performed * Meropenem 500mg IV Q 12hours (active since 08/14/17 through 08/18/17) to cover for UTI per ID * Repeat Urine Culture 08/18/17 shows NO growth * 08/25: reculture in light of leukocytosis * 08/27: pending urine studies * 08/30: Urine Culture 08/27/17 showed Yeast Species but no antifungal secondary to recent history of Elevated LFTs Status: Chronic (14) Confusion; Alzheimer's Dementia Assessment and Plan: * Per daughter, patient has been getting bouts of confusion over the past year but appears at baseline. Patient has not seen formal neurology as outpatient per daughter. Per , prior to event, noted Alzheimers' disease dx one year ago * CT head w/o contrast (08/10/17):acute os subacute lacune infarct is not excluded in the left basal ganglia inferiorly with definitive chronic lacune identified in the right basal ganglia superiorly. No acute or subacute lobar brain infarction is appreciable by standard CT criteria. Mild age-related neuro degenerative changes are identifed. 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 No changes to dimensions at this time. Also, pt favoring Left side of head and has developed a 1x1 serous filled blister on his left ear. Primary nurse placed duoderm on the ear. Wound care nurse left duoderm in place , and recommends leaving it on until it falls off on its own. Pt has been NPO for several days, new peg inserted yesterday. Will be starting glucerna tube feedings later today. Albumin 3.3 * Turn q 2 hours * medihoney on unstageable ulcer * duoderm on left ear aurical ulcer * 09/02/17: examined with Wound Care Nurse Emeka Samuel and periphery of the Sacral Wound is pink with some bleeding however center is still black and therefore still unstageable. Continue spray with Cavelon followed by thick coating with MediHoney followed by covering with OptiFoam once a day. * 09/03/17: Change of sacral ulcer dressing was performed by me with assitance from Nurse Esmer * 09/04/17: 09/03/17: Change of sacral ulcer dressing was performed by me with assistance from ALEXANDRA Unger * Per wound care note (09/07): sacral ulcer is stable per wound care nurse Status: Acute (16) Elevated LFTs Assessment and Plan: * 08/27: Yina * Discussed with cardiology-->changed amiodarone 200mg PO tid to amiodaron 200mg PO daily * D/C tylenol * Held Statin * patient is also on Rocephin to cover for pneumonia * Will not start antifungal * 08/29: starting to down trending since change in amiodarone dose; awaiting to restart statin * 08/30: continues to trend down. Amiodarone was discontinued * 09/01: AST, ALT, Alk Phos still elevated but stable * 09/02: AST, ALT, Alk Phos still elevated but stable * 09/03: LFTs stable * 09/04: LFTs stable Status: Acute (17). Hx Constipation * Monitor bowel movement * NO bowel Movement since 09/07/17. F/U Obstruction Series 09/13/17 ordered during rapid response (18). Prophylactic measure Assessment and Plan: * Pepcid 20mg PO daily * Start Eliquis 2.5mg PO BID * s/p peg placement 08/25 * s/p trachesostomy 08/22 * s/p Permcath placement 08/22 removal Kurtis catheter * s/p right posterior chest tube 08/19-->removed 08/24 * s/p Right Arm PICC 08/26 * (Jovita Serrano): -->number provided to the nurse- ->consented for peg placement; discussed about LTAC 08/26 * Spoke with Dr. Pickard, PMD regarding patient's hospitalization up until this point 08/2609/01/17: Dr. Cullen Barth spoke with the patient's [place] with the assistance of Nurse Beth on 3 tower (as multiple attempts of using Iumd indicated that all of the Vietnamese translators were busy) and explained all of the patient's diagnosises. 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 Her ultimate wish is to take patient to [facility] where their children live. I explained to patient that I would not know how that would be coordinated but that the Social Workers/Travel Clerk at LTAC may be of assistance in this regard. I also informed her that I am not aware of any insurance company that would finance this request. She understands that the patient is awaiting insurance approval for LTAC. 09/01/17 and 09/02/17: Dr. Cullen Barth spoke with [employer] Work[employer] Apprentice Demetria and we are still awaiting insurance authorization for LTAC placement. 09/05/17: Spoke with nehal, medical social consultant, wean trials sent to LTAC pending approval no word yet regarding approval. Ordered for repeat cultures given uptrend in white count. 09/06/17: pending repeat cultures in light of elevated procalcitonin; ID recommended to reculture. Note: patients PICC lined had clogged ports. Red port remains clogged in spite of cath rafaela. Blue port improved after cath rafaela. Possible may need to remove line to r/o infected line. Strong suspicion due to patient's pneumonia given he has thick secretions. 09/07/17: Infectious disease. pending repeat cultures in light of elevated procalcitonin; Note: patients PICC lined had clogged ports. Red port remains clogged in spite of cath rafaela. Blue port improved after cath rafaela. Hip xray negative for acute fracture. There are no noted falls. 09/08/17: Patient denied for LTAC; awaiting for other options from case management/social work. Resident Daniel spoke with Dr. Cortés, patient be transferred under regular bed, when bed is available. Infectious disease on board; Patient started on IV Vancomycin in light of + blood culture. Pending chest xray. 09/09/17: Patient denied for LTAC; awaiting for other options from case management/social work with kamlesh verdin support. Patient started on IV Vancomycin MWF in light of + blood culture. Pending chest xray. F/U sputum with ID. f/u latest blood cultures. 09/13/17: Rapid response for low blood pressure and elevated WBC likely Septic Shock. Started on Levophed, added Meropenem to Vancomycin and 1 dose of Gentamycin given after speaking with ID. Ordered Obstruction Series as no bowel movement since 09/07/17. F/U Shock Panel. Discussed with ICU Resident to arrange for Change of PICC line and Trach Collar. Cullen Barth D.O. Objective - Vital Signs/Intake and Output Vital Signs (last 24 hours): Temp Pulse Resp BP Pulse Ox 98.3 F 112 H 20 69/27 L 97 09/13/17 09:02 09/13/17 11:05 09/13/17 11:05 09/13/17 11:05 09/13/17 11:05 - Medications Medications: Current Medications Acetylcysteine (Acetylcysteine 20%) 4 ml INH RQ6 [facility] Last Admin: 09/13/17 03:08 Dose: 4 ml Albuterol/Ipratropium (Duoneb 3 Mg/0.5 Mg (3 Ml) Ud) 3 ml INH RQ6 [facility] Last Admin: 09/13/17 03:08 Dose: 3 ml Apixaban (Eliquis) 2.5 mg PO BID [facility] Last Admin: 09/12/17 21:54 Dose: 2.5 mg Aspirin (Aspirin Chewable) 81 mg PO DAILY [facility] Last Admin: 09/12/17 10:33 Dose: 81 mg Collagenase (Santyl) 0 gm TOP DAILY [facility] Last Admin: 09/13/17 10:50 Dose: 1 applic Epoetin Chencho (Procrit) 10,000 unit IV MWF [facility] Last Admin: 09/12/17 16:23 Dose: 10,000 unit Famotidine (Pepcid) 20 mg PO DAILY [facility] Last Admin: 09/12/17 10:33 Dose: 20 mg Fluconazole (Diflucan) 200 mg PO DAILY [facility] Last Admin: 09/13/17 10:49 Dose: 200 mg Vancomycin HCl 1 gm/ Sodium (Chloride) 250 mls @ 166.7 mls/hr IVPB MWF [facility] Last Admin: 09/12/17 21:57 Dose: 166.7 mls/hr Norepinephrine Bitartrate 4 mg (/ Dextrose) 254 mls @ 15.24 mls/hr IV .[id number] PRN; Protocol; 4 MCG/MIN PRN Reason: TITRATE PER MD ORDER Gentamicin Sulfate/Sodium Chloride (Gentamicin Iv 80 Mg Premix) 80 mg in 100 mls @ 200 mls/hr IVPB ONCE ONE Stop: 09/13/17 12:29 Meropenem 500 mg/ Sodium (Chloride) 100 mls @ 200 mls/hr IVPB Q12H [facility] Insulin Aspart (Novolog) 0 unit SC Q6 [facility] PRN Reason: Protocol Last Admin: 09/13/17 06:33 Dose: 3 unit Insulin Detemir (Levemir) 43 unit SC Q12 [facility] Last Admin: 09/12/17 22:08 Dose: 43 unit Lactobacillus Acidophilus (Bacid Acidophilus) 1 cap PO BID [facility] Last Admin: 09/12/17 21:24 Dose: 1 cap Metoprolol Tartrate (Lopressor) 50 mg PO BID [facility] Last Admin: 09/13/17 10:51 Dose: Not Given Rosuvastatin Calcium (Crestor) 10 mg PO HS [facility] Last Admin: 08/26/17 22:41 Dose: 10 mg Sevelamer Carbonate (Renvela) 1.6 gm GT TIDCC [facility] Last Admin: 09/13/17 08:11 Dose: 1.6 gm Trimethoprim/Sulfamethoxazole (Sulfatrim Pediatric Susp) 10 ml PO Q12 [facility] Last Admin: 09/12/17 21:26 Dose: 10 ml - Labs Labs: 09/13/17 07:23 09/13/17 07:23 PT 13.9 SECONDS (9.7-12.2) H 08/24/17 06:08 INR 1.2 08/24/17 06:08 APTT 55 SECONDS (21-34) H D 08/17/17 06:12
--- NOTE | 2017-09-13 11:49 | CP.PCM.PN ---
Subjective - Date & Time of Evaluation Date of Evaluation: 09/13/17 Time of Evaluation: 11:48 - Subjective Subjective: events noted pt hypotensive, transferred back to ICU on levophed, didnt receive iv fluids s/p hd yesterday unable to obtain ros due to ams Objective - Vital Signs/Intake and Output Vital Signs (last 24 hours): Temp Pulse Resp BP Pulse Ox 98.3 F 112 H 20 69/27 L 97 09/13/17 09:02 09/13/17 11:05 09/13/17 11:05 09/13/17 11:05 09/13/17 11:05 - Medications Medications: Current Medications Acetylcysteine (Acetylcysteine 20%) 4 ml INH RQ6 [facility] Last Admin: 09/13/17 03:08 Dose: 4 ml Albuterol/Ipratropium (Duoneb 3 Mg/0.5 Mg (3 Ml) Ud) 3 ml INH RQ6 [facility] Last Admin: 09/13/17 03:08 Dose: 3 ml Apixaban (Eliquis) 2.5 mg PO BID [facility] Last Admin: 09/12/17 21:54 Dose: 2.5 mg Aspirin (Aspirin Chewable) 81 mg PO DAILY [facility] Last Admin: 09/12/17 10:33 Dose: 81 mg Collagenase (Santyl) 0 gm TOP DAILY [facility] Last Admin: 09/13/17 10:50 Dose: 1 applic Epoetin Chencho (Procrit) 10,000 unit IV [facility] Last Admin: 09/12/17 16:23 Dose: 10,000 unit Famotidine (Pepcid) 20 mg PO DAILY [facility] Last Admin: 09/12/17 10:33 Dose: 20 mg Fluconazole (Diflucan) 200 mg PO DAILY [facility] Last Admin: 09/13/17 10:49 Dose: 200 mg Vancomycin HCl 1 gm/ Sodium (Chloride) 250 mls @ 166.7 mls/hr IVPB MWF [facility] Last Admin: 09/12/17 21:57 Dose: 166.7 mls/hr Norepinephrine Bitartrate 4 mg (/ Dextrose) 254 mls @ 15.24 mls/hr IV .[id number] PRN; Protocol; 4 MCG/MIN PRN Reason: TITRATE PER MD ORDER Gentamicin Sulfate/Sodium Chloride (Gentamicin Iv 80 Mg Premix) 80 mg in 100 mls @ 200 mls/hr IVPB ONCE ONE Stop: 09/13/17 12:29 Meropenem 500 mg/ Sodium (Chloride) 100 mls @ 200 mls/hr IVPB Q12H [facility] Insulin Aspart (Novolog) 0 unit SC Q6 [facility] PRN Reason: Protocol Last Admin: 09/13/17 06:33 Dose: 3 unit Insulin Detemir (Levemir) 43 unit SC Q12 [facility] Last Admin: 09/12/17 22:08 Dose: 43 unit Lactobacillus Acidophilus (Bacid Acidophilus) 1 cap PO BID [facility] Last Admin: 09/12/17 21:24 Dose: 1 cap Metoprolol Tartrate (Lopressor) 50 mg PO BID [facility] Last Admin: 09/13/17 10:51 Dose: Not Given Rosuvastatin Calcium (Crestor) 10 mg PO HS [facility] Last Admin: 08/26/17 22:41 Dose: 10 mg Sevelamer Carbonate (Renvela) 1.6 gm GT TIDCC [facility] Last Admin: 09/13/17 08:11 Dose: 1.6 gm Trimethoprim/Sulfamethoxazole (Sulfatrim Pediatric Susp) 10 ml PO Q12 [facility] Last Admin: 09/12/17 21:26 Dose: 10 ml - Labs Labs: 09/13/17 07:23 09/13/17 07:23 PT 13.9 SECONDS (9.7-12.2) H 08/24/17 06:08 INR 1.2 08/24/17 06:08 APTT 55 SECONDS (21-34) H D 08/17/17 06:12 - Constitutional Appears: No Acute Distress, Chronically Ill - Head Exam Head Exam: NORMAL INSPECTION - Eye Exam Eye Exam: Normal appearance - ENT Exam ENT Exam: Mucous Membranes Dry Additional comments: trach - vent - Neck Exam Neck Exam: Normal Inspection - Respiratory Exam Respiratory Exam: Decreased Breath Sounds, NORMAL BREATHING PATTERN - Cardiovascular Exam Cardiovascular Exam: Tachycardia, REGULAR RHYTHM - GI/Abdominal Exam GI & Abdominal Exam: Distended, Soft, Diminished Bowel Sounds - Extremities Exam Extremities Exam: Normal Inspection - Back Exam Back Exam: NORMAL INSPECTION Assessment and Plan (1) Acute on chronic renal failure Status: Acute (2) CHF (congestive heart failure) Status: Acute (3) History of DVT (deep vein thrombosis) Status: Acute (4) CAD (coronary artery disease) Status: Chronic (5) CKD (chronic kidney disease) Status: Chronic - Assessment and Plan (Free Text) Assessment: r/o sepsis. cultures pending. pressor support consider abdominal imaging plan for hd tomorrow if hemodynamically stable
[2017-09-13 11:51] LABS: DRAW SITE LB
[2017-09-13] MEDS ORDERED: Gentamicin 80 mg in 0.9% NS 80 MG/100 ML BAG IVPB ONE (12:00)
--- NOTE | 2017-09-13 12:20 | PCM.RRT ---
RECONCILIATION ANALYST Nurses Assessment - Situation Date: 09/13/17 Time RECONCILIATION ANALYST was called: 11:05 RECONCILIATION ANALYST Responder Arrival Time:: 11:06 RECONCILIATION ANALYST Location:: Med/Surg RECONCILIATION ANALYST Reason for Call: Hypotension (SBP 80s systolic.) RECONCILIATION ANALYST Called By: RN - IV IV Inserted during RECONCILIATION ANALYST?: No - Respiratory RECONCILIATION ANALYST Delivery Method: Trach Collar @% Was the Patient Ventilated with Bag/Mask 100% O2?: No Secretions Suctioned?: Yes (clear, secretions, about 10cc) - Ventilator Settings FIO2 (% Oxygen): 40 - Diagnostic Test Ordered EKG: Yes Chest X-Ray: Yes CT Scan: No - Stat Labs Ordered RECONCILIATION ANALYST Stat Labs Ordered: LACTIC ACID, ABG (lactic acid 2.3 pO2 50s) CPR started during RECONCILIATION ANALYST?: No - Se Coma Scale Coma Scale Eye Opening: To pain Coma Scale Verbal: No response - Sepsis Screen Part 1 Sepsis Screen Part 1: Hypotensive - Recommendations 5) RECONCILIATION ANALYST Level of Care Recommendations: Transfer to ICU I.Reason for RECONCILIATION ANALYST - A) Acute Change in Patient: (Select all that apply): Acute change in SBP below - Neurological Status (Select all that apply): Lethargic - Respiratory Oxygen Delivery Method: Trach Collar @% - Eyes Eye Exam: EOMI, Normal appearance - Respiratory Exam Respiratory Exam: Rales. absent: Chest Wall Tenderness - Cardiovascular Exam Cardiovascular Exam: Tachycardia, REGULAR RHYTHM, +S1, +S2 - GI/Abdominal Exam GI & Abdominal Exam: Distended, Soft, Hypoactive Bowel Sounds Additional comments: RLQ , LLQ, RUQ bowel sounds, faint no bowel sounds auscultated on LUQ - Neurological Exam Neurological Exam: Awake - Extremities Exam Extremities Exam: absent: Joint Swelling, Pedal Edema Additional comments: right heel unstagable ulcer Plan - Assessment of Findings&Treatment Plan f/u ABG f/u blood cultures f/u sputum cultures monitor vitals f/u obstructive series f/u BM Patient placed on Gentamicin one dose patient is on Merrem Q12H per Dr. Zimmer
[2017-09-13 13:29] LABS: BASO # 0.1 K/uL (0.0-0.2); BASO % 0.5 % (0.0-2.0); EOS # 0.2 K/uL (0.0-0.7); HEMATOCRIT 30.1 % (35.0-51.0); LYMPH # 1.8 K/uL (1.0-4.3); LYMPH % 8.8 % (20.0-40.0); MEAN CELL VOLUME 76.1 fL (80.0-94.0); MEAN CORPUSCULAR HEMOGLOBIN 23.8 pg (27.0-31.0); MEAN CORPUSCULAR HGB CONC 31.2 g/dL (33.0-37.0); MEAN PLATELET VOLUME 8.2 fL (7.2-11.7); MONO # 1.2 K/uL (0.0-0.8); MONO % 5.9 % (0.0-10.0); NRBC % 0.1 % (0.0-2.0); PLATELET COUNT 520 K/uL (130-400); RED CELL DISTRIBUTION WIDTH 22.9 % (11.5-14.5); WHITE BLOOD COUNT 20.4 K/uL (4.8-10.8)
[2017-09-13 13:40] LABS: POTASSIUM 4.1 mmol/L (3.6-5.2)
[2017-09-13 13:42] LABS: BILIRUBIN,TOTAL 0.5 mg/dL (0.2-1.3)
[2017-09-13 13:43] LABS: ALB/GLOB RATIO 0.6 (1.0-2.1); PHOSPHOROUS 3.2 mg/dL (2.5-4.5); TOTAL PROTEIN 8.3 g/dL (6.3-8.3)
--- NOTE | 2017-09-13 13:43 | RAD ---
PROCEDURE: Radiographs of the chest and abdomen (obstructive series) HISTORY: no bm for 6 days, bed bound COMPARISON: No prior. TECHNIQUE: AP radiograph of the chest, with upright and supine radiographs of the abdomen. FINDINGS: CHEST: Lungs: No discrete infiltrates. Cardiovascular: Emil for cardiomegaly Position/ configuration of pacemaker Pleura: No pleural fluid. No pneumothorax. Other findings: Satisfactory position ventilatory, vascular apparatus. ABDOMEN AND PELVIS: Bowel: Constipation without fecal impaction or obstruction. Free air: None. Bones: Unremarkable. Other findings: None. IMPRESSION: Constipation without fecal impaction or obstruction. Additional benign and/or incidental findings described above.
[2017-09-13 13:44] LABS: CALCIUM 9.4 mg/dl (8.6-10.4); MAGNESIUM 2.5 mg/dL (1.6-2.3)
[2017-09-13 13:59] LABS: EOSINOPHIL 1 % (0-4); NEUTROPHIL 82 % (50-75); REACTIVE LYMPHOCYTES 1 % (0-0); TOTAL CELLS COUNTED 100
[2017-09-13] MEDS: Meropenem 500 MG in Sodium Chloride 0.9% 100 ML IVPB SCH (14:35)
--- NOTE | 2017-09-13 15:26 | CP.PCM.CON ---
History of Present Illness - History of Present Illness History of Present Illness: ICU Consult: FARM EQUIPMENT ENGINEER for hypotension HPI: Patient is a 77 year old male with PMHx significant for CAD with prior stent placement, HTN, HLD, DM 2, CKD, Anemia, permanent pacemaker, prior DVT and chronic lower extremity edema presents with complaints of chest pain and shortness of breath with ambulation (08/06/17). Patient has had an extensive and complicated course over the course of his admission. Patient was admitted to ICU on 08/10 from hospital floors due to code blue as patient was enrouting to get a CT scan. Patient is currently with a tracheostomy due to respiratory distress secondary to cardiac arrest. Patient was transferred to telemetery on 08/29/17. Patient was transferred back to the ICU today due to FARM EQUIPMENT ENGINEER for hypotension (/); patient was started on levophed at 4mcg/min. (As per admission): PMD: Dr Pickard PMHx: CAD with prior stent placement, HTN, HLD, DM 2, CKD, Anemia, permanent pacemaker, prior DVT and chronic lower extremity edema PSHx: abdominal hernia repair, pacemaker placement, prior cardiac stent placement, Prior Cardiac cath by Dr. Cortés FHx: Mom with DM and vaginal CA, Dad with from [place] at 68. Medications: Please refer to chart Allergies: no known drug allergies PMD: Dr Pickard Social Hx: denies tobacco use; only drank alcohol sparingly when he was very young; denies illicit drug use. Review of Systems - Review of Systems Review of Systems: Unable to evaluate ROS due to patient's current clinical status Past Patient History - Infectious Disease Hx of Infectious Diseases: None - Past Medical History & Family History Past Medical History?: Yes - Past Social History Smoking Status: Never Smoked Alcohol: None Drugs: Denies Home Situation {Lives}: With Family - CARDIAC Hx Congestive Heart Failure: Yes Hx Hypercholesterolemia: Yes Hx Hypertension: Yes - PULMONARY Hx Asthma: Yes - RENAL Hx Chronic Kidney Disease: Yes (REANAL INSUFFICIENCY) Hx Kidney Stones: Yes - ENDOCRINE/METABOLIC Hx Diabetes Mellitus Type 2: Yes - MUSCULOSKELETAL/RHEUMATOLOGICAL Hx Arthritis: Yes - GENITOURINARY/GYNECOLOGICAL Hx Genitourinary Disorders: Yes Hx Prostate Problems: Yes (ELEVATED PSA) - PSYCHIATRIC Hx Anxiety: Yes Hx Depression: Yes Hx Substance Use: No - SURGICAL HISTORY Hx Surgeries: Yes Other/Comment: pacemaker on - ANESTHESIA Hx Anesthesia: Yes Hx Anesthesia Reactions: No Hx Malignant Hyperthermia: No Meds Allergies/Adverse Reactions: Allergies Allergy/AdvReac Type Severity Reaction Status Date / Time No Known Allergies Allergy Verified 08/06/17 13:20 - Medications Medications: Current Medications Acetylcysteine (Acetylcysteine 20%) 4 ml INH RQ6 [facility] Last Admin: 09/13/17 03:08 Dose: 4 ml Albuterol/Ipratropium (Duoneb 3 Mg/0.5 Mg (3 Ml) Ud) 3 ml INH RQ6 [facility] Last Admin: 09/13/17 03:08 Dose: 3 ml Apixaban (Eliquis) 2.5 mg PO BID [facility] Last Admin: 09/12/17 21:54 Dose: 2.5 mg Aspirin (Aspirin Chewable) 81 mg PO DAILY [facility] Last Admin: 09/12/17 10:33 Dose: 81 mg Collagenase (Santyl) 0 gm TOP DAILY [facility] Last Admin: 09/13/17 10:50 Dose: 1 applic Epoetin Chencho (Procrit) 10,000 unit IV [facility] Last Admin: 09/12/17 16:23 Dose: 10,000 unit Famotidine (Pepcid) 20 mg PO DAILY [facility] Last Admin: 09/12/17 10:33 Dose: 20 mg Fluconazole (Diflucan) 200 mg PO DAILY [facility] Last Admin: 09/13/17 10:49 Dose: 200 mg Vancomycin HCl 1 gm/ Sodium (Chloride) 250 mls @ 166.7 mls/hr IVPB MWF [facility] Last Admin: 09/12/17 21:57 Dose: 166.7 mls/hr Norepinephrine Bitartrate 4 mg (/ Dextrose) 254 mls @ 15.24 mls/hr IV .[id number] PRN; Protocol; 4 MCG/MIN PRN Reason: TITRATE PER MD ORDER Meropenem 500 mg/ Sodium (Chloride) 100 mls @ 200 mls/hr IVPB Q12H [facility] Last Admin: 09/13/17 14:35 Dose: 200 mls/hr Insulin Aspart (Novolog) 0 unit SC Q6 [facility] PRN Reason: Protocol Last Admin: 09/13/17 13:41 Dose: 4 unit Insulin Detemir (Levemir) 43 unit SC Q12 [facility] Last Admin: 09/12/17 22:08 Dose: 43 unit Lactobacillus Acidophilus (Bacid Acidophilus) 1 cap PO BID [facility] Last Admin: 09/12/17 21:24 Dose: 1 cap Metoprolol Tartrate (Lopressor) 50 mg PO BID [facility] Last Admin: 09/13/17 10:51 Dose: Not Given Rosuvastatin Calcium (Crestor) 10 mg PO HS [facility] Last Admin: 08/26/17 22:41 Dose: 10 mg Sevelamer Carbonate (Renvela) 1.6 gm GT TIDCC [facility] Last Admin: 09/13/17 13:38 Dose: Not Given Trimethoprim/Sulfamethoxazole (Sulfatrim Pediatric Susp) 10 ml PO Q12 [facility] Last Admin: 09/12/17 21:26 Dose: 10 ml Physical Exam - Eye Exam Eye Exam: EOMI - Respiratory Exam Respiratory Exam: NORMAL BREATHING PATTERN. absent: Accessory Muscle Use, Respiratory Distress Additional comments: Tracheostomy - Cardiovascular Exam Cardiovascular Exam: REGULAR RHYTHM, +S1, +S2 - GI/Abdominal Exam GI & Abdominal Exam: Distended, Normal Bowel Sounds - Extremities Exam Extremities exam: Negative for: pedal edema - Neurological Exam Neurological exam: Alert Results - Vital Signs Recent Vital Signs: Last Vital Signs Temp 98.3 F 09/13/17 09:02 Pulse 112 H 09/13/17 11:05 Resp 20 09/13/17 11:05 BP 69/27 L 09/13/17 11:05 Pulse Ox 97 09/13/17 11:05 - Labs Result Diagrams: 09/13/17 13:23 09/13/17 13:23 Labs: Laboratory Results - last 24 hr 09/12/17 09/12/17 09/13/17 15:51 21:22 00:05 WBC RBC Hgb Hct MCV MCH MCHC RDW Plt Count MPV Neut % (Auto) Lymph % (Auto) Roberts % (Auto) Eos % (Auto) Baso % (Auto) Neut # Lymph # Roberts # Eos # Baso # Neutrophils % (Manual) Band Neutrophils % Lymphocytes % (Manual) Reactive Lymphs % Monocytes % (Manual) Eosinophils % (Manual) Differential Comment Platelet Estimate Hypochromasia (manual) Poikilocytosis (manual Anisocytosis (manual) Ovalocytes Puncture Site pCO2 pO2 HCO3 ABG pH ABG Total CO2 ABG O2 Saturation ABG Base Excess Uriel Test ABG Potassium A-a O2 Difference Respiratory Index Glucose Lactate FiO2 Sodium Potassium Chloride Carbon Dioxide Anion Gap BUN Creatinine Est GFR ( Amer) Est GFR (Non-Af Amer) POC Glucose (mg/dL) 145 H 325 H 321 H Random Glucose Calcium Phosphorus Magnesium Total Bilirubin AST ALT Alkaline Phosphatase Total Protein Albumin Globulin Albumin/Globulin Ratio Arterial Blood Potassium 09/13/17 09/13/17 09/13/17 06:23 07:23 07:23 WBC 20.0 H RBC 3.83 L Hgb 9.1 L Hct 29.4 L MCV 76.7 L MCH 23.7 L MCHC 30.9 L RDW 23.2 H Plt Count 463 H MPV 8.2 Neut % (Auto) 82.0 H Lymph % (Auto) 10.7 L Roberts % (Auto) 6.1 Eos % (Auto) 0.7 Baso % (Auto) 0.5 Neut # 16.4 H Lymph # 2.1 Roberts # 1.2 H Eos # 0.1 Baso # 0.1 Neutrophils % (Manual) Band Neutrophils % Lymphocytes % (Manual) Reactive Lymphs % Monocytes % (Manual) Eosinophils % (Manual) Differential Comment Platelet Estimate Hypochromasia (manual) Poikilocytosis (manual Anisocytosis (manual) Ovalocytes Puncture Site pCO2 pO2 HCO3 ABG pH ABG Total CO2 ABG O2 Saturation ABG Base Excess Uriel Test ABG Potassium A-a O2 Difference Respiratory Index Glucose Lactate FiO2 Sodium 132 Potassium 4.2 Chloride 91 L Carbon Dioxide 26 Anion Gap 19 BUN 72 H Creatinine 4.2 H Est GFR ( Amer) 17 Est GFR (Non-Af Amer) 14 POC Glucose (mg/dL) 279 H Random Glucose 237 H Calcium 9.0 Phosphorus 3.3 Magnesium 2.4 H Total Bilirubin 0.5 AST 79 H ALT 62 Alkaline Phosphatase 167 H Total Protein 7.5 Albumin 3.1 L Globulin 4.4 H Albumin/Globulin Ratio 0.7 L Arterial Blood Potassium 09/13/17 09/13/17 09/13/17 10:59 11:35 13:21 WBC RBC Hgb Hct MCV MCH MCHC RDW Plt Count MPV Neut % (Auto) Lymph % (Auto) Roberts % (Auto) Eos % (Auto) Baso % (Auto) Neut # Lymph # Roberts # Eos # Baso # Neutrophils % (Manual) Band Neutrophils % Lymphocytes % (Manual) Reactive Lymphs % Monocytes % (Manual) Eosinophils % (Manual) Differential Comment Platelet Estimate Hypochromasia (manual) Poikilocytosis (manual Anisocytosis (manual) Ovalocytes Puncture Site Lb pCO2 38 pO2 55 L HCO3 27.8 ABG pH 7.47 H ABG Total CO2 28.9 H ABG O2 Saturation 92.0 L ABG Base Excess 3.9 H Uriel Test Na ABG Potassium 3.7 A-a O2 Difference 147.0 Respiratory Index 2.7 Glucose 279 H Lactate 2.2 H FiO2 35.0 Sodium 135.0 Potassium Chloride 99.0 Carbon Dioxide Anion Gap BUN Creatinine Est GFR ( Amer) Est GFR (Non-Af Amer) POC Glucose (mg/dL) 312 H 312 H Random Glucose Calcium Phosphorus Magnesium Total Bilirubin AST ALT Alkaline Phosphatase Total Protein Albumin Globulin Albumin/Globulin Ratio Arterial Blood Potassium 3.7 09/13/17 09/13/17 13:23 13:23 WBC 20.4 H RBC 3.95 L Hgb 9.4 L Hct 30.1 L MCV 76.1 L MCH 23.8 L MCHC 31.2 L RDW 22.9 H Plt Count 520 H MPV 8.2 Neut % (Auto) 83.8 H Lymph % (Auto) 8.8 L Roberts % (Auto) 5.9 Eos % (Auto) 1.0 Baso % (Auto) 0.5 Neut # 17.1 H Lymph # 1.8 Roberts # 1.2 H Eos # 0.2 Baso # 0.1 Neutrophils % (Manual) 82 H Band Neutrophils % 6 H Lymphocytes % (Manual) 9 L Reactive Lymphs % 1 H Monocytes % (Manual) 1 Eosinophils % (Manual) 1 Differential Comment Platelet Estimate Increased H Hypochromasia (manual) Slight Poikilocytosis (manual Slight Anisocytosis (manual) Moderate Ovalocytes Slight Puncture Site pCO2 pO2 HCO3 ABG pH ABG Total CO2 ABG O2 Saturation ABG Base Excess Uriel Test ABG Potassium A-a O2 Difference Respiratory Index Glucose Lactate FiO2 Sodium 132 Potassium 4.1 Chloride 93 L Carbon Dioxide 28 Anion Gap 16 BUN 82 H Creatinine 4.6 H Est GFR ( Amer) 15 Est GFR (Non-Af Amer) 12 POC Glucose (mg/dL) Random Glucose 257 H Calcium 9.4 Phosphorus 3.2 Magnesium 2.5 H Total Bilirubin 0.5 AST 67 H ALT 73 H Alkaline Phosphatase 183 H Total Protein 8.3 Albumin 3.2 L Globulin 5.1 H Albumin/Globulin Ratio 0.6 L Arterial Blood Potassium Assessment & Plan - Assessment and Plan (Free Text) Assessment: Patient is a 77 year old male with PMHx significant for CAD with prior stent placement, HTN, HLD, DM 2, CKD, Anemia, permanent pacemaker, prior DVT and chronic lower extremity edema presents with complaints of chest pain and shortness of breath with ambulation (08/06/17). Patient was admitted to ICU on from hospital floors due to code blue as patient was enrouting to get a CT scan. Patient is currently with a tracheostomy due to respiratory distress secondary to cardiac arrest. Patient was transferred to telemetery on 08/29/17. Patient was transferred back to the ICU today due to FARM EQUIPMENT ENGINEER for hypotension () ; patient was started on levophed at 4mcg/min. Plan: Neuro: Alert, minimally verbal Pulm: Respiratory distress secondary to cardiac arrest Medication/Management: * Tracheostomy * Acetylcysteine 20% 4ML INH RQ6 * Duoneb 3ml INH RQ6 CV: Hypotension S/p Cardica arrest (08/10/17), Hx of CAD with prior stent placement, HTN, HLD, [employer], Dr. Cortés----> Help appreciated Medication/Management: * Levophed 4mcg/min * Eliquis 2.5mg PO BID * Aspirin 81mg PO daily * Lopressor 50mg PO BID ( Held due to hypotension) * Crestor 10mg PO HS Renal: CKD Rn Stars, Dr. Miranda---> Help appreciated - HD (MWF) via perma cath - Phoslo 1,334mg GT TID - Procrit 10,000 unit IV MWF -Sevelamer Carbonate 1.6gm GT TIDCC Endo: DM type 2 - ISS- low dose protocol - Levemir 43 unit SC Q12H GI: Constipation * Phosphate enema 135ml SD once * Monitor bowel movement ID: Leukocytosis, Sputum culture ( Enterobacter Cloacae sp, yeast species- 09/07) and blood culture ( Coagulase neg staphy-09/05/17) ID, Dr. Zimmer----> Help appreciated Medications: * Meropenen 500mg IVBP Q12H * Bactrim 10ml PO q12 * Diflucan 200mg PO daily Prophylaxis DVT: SCDs and Eliquis 2.5mg PO BID GI: pepcid 20 mg PO daily, Lactobacillus 1 cap PO BID
--- NOTE | 2017-09-13 21:25 | CP.PCM.PN ---
Subjective - Date & Time of Evaluation Date of Evaluation: 09/13/17 Time of Evaluation: 15:40 - Subjective Subjective: Patient seen and evaluated Transferred to ICU after Rapid response Sepsis and hypotension Physical Examination - Constitutional Appears: Non-toxic, No Acute Distress - Head Exam Head Exam: ATRAUMATIC, NORMAL INSPECTION, NORMOCEPHALIC - Eye Exam Eye Exam: EOMI - ENT Exam ENT Exam: Mucous Membranes Moist - Respiratory Exam Respiratory Exam: NORMAL BREATHING PATTERN - Cardiovascular Exam Cardiovascular Exam: Irregular Rhythm, +S1, +S2. absent: JVD - GI/Abdominal Exam GI & Abdominal Exam: Soft - Neurological Exam Neurological Exam: Altered - Psychiatric Exam Psychiatric exam: Flat Affect - Skin Skin Exam: Dry, Warm Objective - Vital Signs/Intake and Output Vital Signs (last 24 hours): Temp Pulse Resp BP Pulse Ox 98.1 F 98 H 12 112/43 L 98 09/13/17 16:00 09/13/17 19:04 09/13/17 19:04 09/13/17 19:04 09/13/17 19:04 Intake and Output: 09/13/17 09/14/17 18:59 06:59 Intake Total 728.5 65 Output Total 300 Balance 428.5 65 - Medications Medications: Current Medications Acetylcysteine (Acetylcysteine 20%) 4 ml INH RQ6 [facility] Last Admin: 09/13/17 19:33 Dose: 4 ml Albuterol/Ipratropium (Duoneb 3 Mg/0.5 Mg (3 Ml) Ud) 3 ml INH RQ6 [facility] Last Admin: 09/13/17 19:34 Dose: 3 ml Apixaban (Eliquis) 2.5 mg PO BID [facility] Last Admin: 09/13/17 18:08 Dose: 2.5 mg Aspirin (Aspirin Chewable) 81 mg PO DAILY [facility] Last Admin: 09/12/17 10:33 Dose: 81 mg Collagenase (Santyl) 0 gm TOP DAILY [facility] Last Admin: 09/13/17 10:50 Dose: 1 applic Epoetin Chencho (Procrit) 10,000 unit IV MWF [facility] Last Admin: 09/12/17 16:23 Dose: 10,000 unit Famotidine (Pepcid) 20 mg PO DAILY [facility] Last Admin: 09/12/17 10:33 Dose: 20 mg Fluconazole (Diflucan) 200 mg PO DAILY [facility] Last Admin: 09/13/17 10:49 Dose: 200 mg Vancomycin HCl 1 gm/ Sodium (Chloride) 250 mls @ 166.7 mls/hr IVPB MWF [facility] Last Admin: 09/12/17 21:57 Dose: 166.7 mls/hr Norepinephrine Bitartrate 4 mg (/ Dextrose) 254 mls @ 15.24 mls/hr IV .[id number] PRN; Protocol; 4 MCG/MIN PRN Reason: TITRATE PER MD ORDER Last Admin: 09/13/17 18:49 Dose: 4 mcg/min, 15.24 mls/hr Meropenem 500 mg/ Sodium (Chloride) 100 mls @ 200 mls/hr IVPB Q12H [facility] Last Admin: 09/13/17 14:35 Dose: 200 mls/hr Insulin Aspart (Novolog) 0 unit SC Q6 [facility] PRN Reason: Protocol Last Admin: 09/13/17 18:07 Dose: 4 unit Insulin Detemir (Levemir) 43 unit SC Q12 [facility] Last Admin: 09/12/17 22:08 Dose: 43 unit Lactobacillus Acidophilus (Bacid Acidophilus) 1 cap PO BID [facility] Last Admin: 09/13/17 18:07 Dose: 1 cap Metoprolol Tartrate (Lopressor) 50 mg PO BID [facility] Last Admin: 09/13/17 18:08 Dose: Not Given Rosuvastatin Calcium (Crestor) 10 mg PO HS [facility] Last Admin: 08/26/17 22:41 Dose: 10 mg Sevelamer Carbonate (Renvela) 1.6 gm GT TIDCC [facility] Last Admin: 09/13/17 18:08 Dose: 1.6 gm Trimethoprim/Sulfamethoxazole (Sulfatrim Pediatric Susp) 10 ml PO Q12 [facility] Last Admin: 09/12/17 21:26 Dose: 10 ml - Labs Labs: 09/13/17 13:23 09/13/17 13:23 PT 13.9 SECONDS (9.7-12.2) H 08/24/17 06:08 INR 1.2 08/24/17 06:08 APTT 55 SECONDS (21-34) H D 08/17/17 06:12 Assessment and Plan - Assessment and Plan (Free Text) Assessment: Hx of Paraxysmal A Fib Intermittent Patient is rate controlled. On Metoprolol 50 mg PO BID, Eliquis 2.5 mg PO BID CAD, chest pain -No current plans for cardiac cath (acute respiratory failure and elevated Cr) , history of abnormal stress test -Elevated Troponin likely due to chest compressions during cardiac arrest 08/10 -No acute ST changes on EKG -Continue ASA, Crestor, Metoprolol. -Echocardiogram from 08/08/17 showed left ventricle systolic function is severely impaired. EF: 25-30%; global hypokinesis of LV mild AR. MR is moderate. Moderate-severe pulmonary hypertension Systolic CHF exacerbation -CXR 09/09: Diminished bilateral basilar airspace disease; stable cardiomegaly -BNP [id number] on 08/06/17 -Continue ASA, Crestor, Metoprolol -Echocardiogram from 08/08/17 showed left ventricle systolic function is severely impaired. EF: 25-30%; global hypokinesis of LV mild AR. MR is moderate. Moderate-severe pulmonary hypertesnion Diabetes Mellitus ISS Continue to monitor ESRD on HD HD due today On Procrit and Phoslo Nephro on the case Prophylaxis Pepcid 20 mg PO daily Eliquis 2.5 mg PO BID (Renal precautions) Disposition Awaiting Transfer to LTAC
[2017-09-14] MEDS: Acetylcysteine 20% Inhal Soln (4ml) INH SCH ×4 (01:35→19:30)
[2017-09-14] MEDS: Albuterol-Ipratrop 3 mg / 0.5 (3 ml) UD INH SCH ×4 (01:35→19:30)
[2017-09-14 06:21] LABS: BASO # 0.1 K/uL (0.0-0.2); BASO % 0.3 % (0.0-2.0); EOS # 0.2 K/uL (0.0-0.7); EOS % 1.1 % (0.0-4.0); HEMATOCRIT 28.1 % (35.0-51.0); LYMPH # 1.9 K/uL (1.0-4.3); LYMPH % 9.4 % (20.0-40.0); MEAN CELL VOLUME 76.3 fL (80.0-94.0); MEAN CORPUSCULAR HEMOGLOBIN 23.7 pg (27.0-31.0); MEAN PLATELET VOLUME 8.1 fL (7.2-11.7); MONO % 4.8 % (0.0-10.0); NRBC % 0.1 % (0.0-2.0); PLATELET COUNT 471 K/uL (130-400); RED CELL DISTRIBUTION WIDTH 23.4 % (11.5-14.5); WHITE BLOOD COUNT 19.8 K/uL (4.8-10.8)
[2017-09-14 06:38] LABS: POTASSIUM 3.7 mmol/L (3.6-5.2)
[2017-09-14 06:40] LABS: ALB/GLOB RATIO 0.6 (1.0-2.1); BILIRUBIN,TOTAL 0.3 mg/dL (0.2-1.3); TOTAL PROTEIN 7.5 g/dL (6.3-8.3)
[2017-09-14 06:41] LABS: CALCIUM 9.1 mg/dl (8.6-10.4); MAGNESIUM 2.6 mg/dL (1.6-2.3); PHOSPHOROUS 3.5 mg/dL (2.5-4.5)
[2017-09-14] MEDS: (Novolog) Insulin Aspart, Recombinant 100 u/ml 10 ml vial SC SCH ×4 (06:47→17:52)
--- NOTE | 2017-09-14 07:49 | CP.PCM.PN ---
<Darryl Roe - Last Filed: 09/14/17 17:44> Subjective - Date & Time of Evaluation Date of Evaluation: 09/14/17 Time of Evaluation: 12:02 - Subjective Subjective: Cardiology Progress Note- Dr. Cortés's service Patient seen and examined in no acute distress. Patient does not follow commands. Patient smiled when addressed though likely - spontaneously. Patient not able to respond to ROS at this time due to his presentation. Objective - Vital Signs/Intake and Output Vital Signs (last 24 hours): Temp Pulse Resp BP Pulse Ox 98.2 F 106 H 11 L 129/45 L 98 09/14/17 00:00 09/14/17 07:17 09/14/17 07:17 09/14/17 07:17 09/14/17 07:17 Intake and Output: 09/14/17 09/14/17 06:59 18:59 Intake Total 731.4 50 Output Total 150 0 Balance 581.4 50 - Medications Medications: Current Medications Acetylcysteine (Acetylcysteine 20%) 4 ml INH RQ6 [facility] Last Admin: 09/14/17 01:35 Dose: 4 ml Albuterol/Ipratropium (Duoneb 3 Mg/0.5 Mg (3 Ml) Ud) 3 ml INH RQ6 [facility] Last Admin: 09/14/17 01:35 Dose: 3 ml Apixaban (Eliquis) 2.5 mg PO BID [facility] Last Admin: 09/13/17 18:08 Dose: 2.5 mg Aspirin (Aspirin Chewable) 81 mg PO DAILY [facility] Last Admin: 09/12/17 10:33 Dose: 81 mg Collagenase (Santyl) 0 gm TOP DAILY [facility] Last Admin: 09/13/17 10:50 Dose: 1 applic Epoetin Chencho (Procrit) 10,000 unit IV MWF [facility] Last Admin: 09/12/17 16:23 Dose: 10,000 unit Famotidine (Pepcid) 20 mg PO DAILY [facility] Last Admin: 09/12/17 10:33 Dose: 20 mg Fluconazole (Diflucan) 200 mg PO DAILY [facility] Last Admin: 09/13/17 10:49 Dose: 200 mg Vancomycin HCl 1 gm/ Sodium (Chloride) 250 mls @ 166.7 mls/hr IVPB MWF [facility] Last Admin: 09/12/17 21:57 Dose: 166.7 mls/hr Norepinephrine Bitartrate 4 mg (/ Dextrose) 254 mls @ 15.24 mls/hr IV .[id number] PRN; Protocol; 4 MCG/MIN PRN Reason: TITRATE PER MD ORDER Last Admin: 09/13/17 18:49 Dose: 4 mcg/min, 15.24 mls/hr Meropenem 500 mg/ Sodium (Chloride) 100 mls @ 200 mls/hr IVPB Q12H [facility] Last Admin: 09/14/17 00:00 Dose: 200 mls/hr Insulin Aspart (Novolog) 0 unit SC Q6 [facility] PRN Reason: Protocol Last Admin: 09/14/17 07:00 Dose: 3 unit Insulin Detemir (Levemir) 43 unit SC Q12 [facility] Last Admin: 09/13/17 22:53 Dose: 43 unit Lactobacillus Acidophilus (Bacid Acidophilus) 1 cap PO BID [facility] Last Admin: 09/13/17 18:07 Dose: 1 cap Metoprolol Tartrate (Lopressor) 50 mg PO BID [facility] Last Admin: 09/13/17 18:08 Dose: Not Given Rosuvastatin Calcium (Crestor) 10 mg PO HS [facility] Last Admin: 08/26/17 22:41 Dose: 10 mg Sevelamer Carbonate (Renvela) 1.6 gm GT TIDCC [facility] Last Admin: 09/13/17 18:08 Dose: 1.6 gm Trimethoprim/Sulfamethoxazole (Sulfatrim Pediatric Susp) 10 ml PO Q12 [facility] Last Admin: 09/13/17 22:04 Dose: 10 ml - Labs Labs: 09/14/17 06:14 09/14/17 06:14 PT 13.9 SECONDS (9.7-12.2) H 08/24/17 06:08 INR 1.2 08/24/17 06:08 APTT 55 SECONDS (21-34) H D 08/17/17 06:12 - Constitutional Appears: Non-toxic, No Acute Distress - Head Exam Head Exam: ATRAUMATIC, NORMAL INSPECTION - Eye Exam Eye Exam: EOMI - ENT Exam ENT Exam: Mucous Membranes Moist Additional comments: trach collar in place with minimal secretions - Neck Exam Neck Exam: Full ROM - Respiratory Exam Respiratory Exam: NORMAL BREATHING PATTERN - Cardiovascular Exam Cardiovascular Exam: Irregular Rhythm, +S1, +S2 - GI/Abdominal Exam GI & Abdominal Exam: Soft, Normal Bowel Sounds - Extremities Exam Extremities Exam: Full ROM. absent: Pedal Edema - Neurological Exam Neurological Exam: Altered - Skin Skin Exam: Dry, Warm Assessment and Plan (1) Chest pain Status: Acute (2) CHF exacerbation Status: Chronic (3) Pneumonia Status: Acute (4) CAD (coronary artery disease) Status: Chronic (5) HTN (hypertension) Status: Chronic (6) CKD (chronic kidney disease) Assessment & Plan: SIRS Unknown source, although there are considerations for sacral wound. Hx of Atrial Flutter Intermittent Likely due to Dobutamine administration which has since been discontinued Amiodarone discontinued; Will monitor to see that patient is rate controlled. On Metoprolol 50 mg PO BID, Eliquis 2.5 mg PO BID CAD, chest pain -No current plans for cardiac cath (acute respiratory failure and elevated Cr) , history of abnormal stress test -Elevated Troponin likely due to chest compressions during cardiac arrest 08/10 -No acute ST changes on EKG -Continue ASA, Crestor, Metoprolol. -Echocardiogram from 08/08/17 showed left ventricle systolic function is severely impaired. EF: 25-30%; global hypokinesis of LV mild AR. MR is moderate. Moderate-severe pulmonary hypertension Systolic CHF exacerbation -CXR 09/09: Diminished bilateral basilar airspace disease; stable cardiomegaly -BNP [id number] on 08/06/17 -Continue ASA, Crestor, Metoprolol -Echocardiogram from 08/08/17 showed left ventricle systolic function is severely impaired. EF: 25-30%; global hypokinesis of LV mild AR. MR is moderate. Moderate-severe pulmonary hypertesnion Dobutamine discontinued in light of atrial flutter-type episodes Diabetes Mellitus ISS Continue to monitor ESRD on HD HD due today On Procrit and Phoslo Nephro on the case Prophylaxis Pepcid 20 mg PO daily Eliquis 2.5 mg PO BID (Renal precautions) Disposition Awaiting Transfer to LTAC Discussed with attending. All management and planning per Dr. Cortés Status: Chronic (7) Diabetes mellitus Status: Chronic (8) HLD (hyperlipidemia) Status: Chronic (9) Constipation Status: Chronic (10) Anemia Status: Chronic (11) History of DVT (deep vein thrombosis) Status: Acute (12) Prophylactic measure Status: Acute - Assessment and Plan (Free Text) Assessment: SIRS Hypotensive event with tachycardia yesterday Unclear source at this time, though considerations for sacral wound. Concepcion cultures- Also Check wound culture Surgery also consulted now on case Atrial Fibrillation Intermittent Rate controlled. On Metoprolol 50 mg PO BID, Eliquis 2.5 mg PO BID CAD, chest pain -No current plans for cardiac cath (acute respiratory failure and elevated Cr) , history of abnormal stress test -Elevated Troponin likely due to chest compressions during cardiac arrest 08/10 -No acute ST changes on EKG -Continue ASA, Crestor, Metoprolol. -Echocardiogram from 08/08/17 showed left ventricle systolic function is severely impaired. EF: 25-30%; global hypokinesis of LV mild AR. MR is moderate. Moderate-severe pulmonary hypertension Systolic CHF exacerbation -CXR 09/09: Diminished bilateral basilar airspace disease; stable cardiomegaly -BNP [id number] on 08/06/17 -Continue ASA, Crestor, Metoprolol -Echocardiogram from 08/08/17 showed left ventricle systolic function is severely impaired. EF: 25-30%; global hypokinesis of LV mild AR. MR is moderate. Moderate-severe pulmonary hypertesnion Dobutamine discontinued in light of atrial flutter-type episodes Diabetes Mellitus ISS Continue to monitor ESRD on HD HD due today On Procrit and Phoslo Nephro on the case Prophylaxis Pepcid 20 mg PO daily Eliquis 2.5 mg PO BID (Renal precautions) Disposition Awaiting Transfer to LTAC Discussed with attending. All management and planning per Dr. Cortés <Sina Cortés - Last Filed: 09/14/17 20:20> Objective - Vital Signs/Intake and Output Vital Signs (last 24 hours): Temp Pulse Resp BP Pulse Ox 98.3 F 108 H 13 94/31 L 100 09/14/17 17:30 09/14/17 19:12 09/14/17 19:12 09/14/17 19:12 09/14/17 19:12 Intake and Output: 09/14/17 09/15/17 18:59 06:59 Intake Total 1048.0 50 Output Total 0 150 Balance 1048.0 -100 - Medications Medications: Current Medications Acetylcysteine (Acetylcysteine 20%) 4 ml INH RQ6 [facility] Last Admin: 09/14/17 19:30 Dose: 4 ml Albuterol/Ipratropium (Duoneb 3 Mg/0.5 Mg (3 Ml) Ud) 3 ml INH RQ6 [facility] Last Admin: 09/14/17 19:30 Dose: 3 ml Apixaban (Eliquis) 2.5 mg PO BID [facility] Last Admin: 09/14/17 17:39 Dose: 2.5 mg Aspirin (Aspirin Chewable) 81 mg PO DAILY [facility] Last Admin: 09/14/17 09:16 Dose: 81 mg Epoetin Chencho (Procrit) 10,000 unit IV F [facility] Last Admin: 09/14/17 15:15 Dose: 10,000 unit Famotidine (Pepcid) 20 mg PO DAILY [facility] Last Admin: 09/14/17 09:16 Dose: 20 mg Fluconazole (Diflucan) 200 mg PO DAILY [facility] Last Admin: 09/14/17 09:16 Dose: 200 mg Vancomycin HCl 1 gm/ Sodium (Chloride) 250 mls @ 166.7 mls/[facility] Last Admin: 09/14/17 17:40 Dose: 166.7 mls/hr Norepinephrine Bitartrate 4 mg (/ Dextrose) 254 mls @ 15.24 mls/hr IV .[id number] PRN; Protocol; 4 MCG/MIN PRN Reason: TITRATE PER MD ORDER Last Titration: 09/14/17 18:30 Dose: 0 mcg/min, 0 mls/hr Meropenem 500 mg/ Sodium (Chloride) 100 mls @ 200 mls/hr IVPB Q12H [facility] Last Admin: 09/14/17 12:11 Dose: 200 mls/hr Insulin Aspart (Novolog) 0 unit SC Q6 [facility] PRN Reason: Protocol Last Admin: 09/14/17 17:52 Dose: 2 unit Insulin Detemir (Levemir) 43 unit SC Q12 [facility] Last Admin: 09/14/17 09:15 Dose: 43 unit Lactobacillus Acidophilus (Bacid Acidophilus) 1 cap PO BID [facility] Last Admin: 09/14/17 17:39 Dose: 1 cap Metoprolol Tartrate (Lopressor) 50 mg PO BID [facility] Last Admin: 09/14/17 17:53 Dose: Not Given Rosuvastatin Calcium (Crestor) 10 mg PO HS [facility] Last Admin: 08/26/17 22:41 Dose: 10 mg Sevelamer Carbonate (Renvela) 1.6 gm GT TIDCC [facility] Last Admin: 09/14/17 17:39 Dose: 1.6 gm Trimethoprim/Sulfamethoxazole (Sulfatrim Pediatric Susp) 10 ml PO Q12 [facility] Last Admin: 09/14/17 09:20 Dose: 10 ml - Labs Labs: 09/14/17 06:14 09/14/17 06:14 PT 13.9 SECONDS (9.7-12.2) H 08/24/17 06:08 INR 1.2 08/24/17 06:08 APTT 55 SECONDS (21-34) H D 08/17/17 06:12 Assessment and Plan - Assessment and Plan (Free Text) Assessment: Patient seen and evaluated with the [facility] medical inpatient services Plan of care as documented
--- NOTE | 2017-09-14 07:51 | CP.CCUPN ---
<Chintan Oliver E - Last Filed: 09/14/17 11:09> CCU Subjective - Physician Review Subjective (Free Text): Patient was seen and examined at bedside. Patient was alert with extraocular movement. Patient is with tracheostomy and PEG tube. As per nursing, there were no acute issues overnight. Patient verbally greeted me this morning when I said "good morning" in espanol, however, still unable to evaluate adequate ROS as patient is not answering verbally or utilizing head motion to nod " yes or no ". CCU Objective - Vital Signs / Intake & Output Vital Signs (Last 4 hours): Vital Signs Pulse Resp BP Pulse Ox 09/14/17 07:17 106 H 11 L 129/45 L 98 09/14/17 07:00 105 H 15 97 09/14/17 06:17 99 H 19 123/49 L 99 09/14/17 06:01 106 H 14 97 09/14/17 05:25 105 H 20 116/46 L 98 09/14/17 05:00 107 H 10 L 117/43 L 99 09/14/17 04:42 101 H 20 100 Intake and Output (Last 8hrs): Intake & Output 09/13/17 09/14/17 09/14/17 22:59 06:59 14:59 Intake Total 612.5 471.4 50 Output Total 450 0 0 Balance 162.5 471.4 50 Weight 169 lb 12.095 oz Intake: Intake, IV Amount 212.5 71.4 0 Right Medial Port 100 Right Proximal Port 112.5 71.4 0 Tube Feeding 400 400 50 Output: Urine 300 0 0 Urine, Voided 300 0 0 Stool 150 Other: # Bowel Movements 1 - Physical Exam Head: Positive for: Atraumatic Extroacular Muscles: Positive for: EOMI Mouth: Positive for: Moist Mucous Membranes Respiratory/Chest: Positive for: Clear to Auscultation, Good Air Exchange, Other (Tracheostomy ). Negative for: Respiratory Distress Cardiovascular: Positive for: Regular Rate and Rhythm, Normal S1, S2 Abdomen: Positive for: Distention, Other (Decreased bowel sounds) Upper Extremity: Negative for: Edema Lower Extremity: Negative for: Edema, Swelling Neurological: Negative for: Speech Normal Skin: Positive for: Normal Color Psychiatric: Positive for: Alert (off sedation). Negative for: Oriented x 3 - Medications Active Medications: Active Medications Generic Name Dose Route Start Last Admin Trade Name Freq PRN Reason Stop Dose Admin Acetylcysteine 4 ml 09/06/17 14:00 09/14/17 01:35 Acetylcysteine 20% INH 4 ml RQ6 LUIS FERNANDO Administration Albuterol/Ipratropium 3 ml 09/01/17 02:00 09/14/17 01:35 Duoneb 3 Mg/0.5 Mg (3 Ml) Ud INH 3 ml RQ6 LUIS FERNANDO Administration Apixaban 2.5 mg 08/27/17 12:00 09/13/17 18:08 Eliquis PO 2.5 mg BID LUIS FERNANDO Administration Aspirin 81 mg 08/26/17 14:00 09/12/17 10:33 Aspirin Chewable PO 81 mg DAILY LUIS FERNANDO Administration Collagenase 0 gm 09/10/17 10:00 09/13/17 10:50 Santyl TOP 1 applic DAILY LUIS FERNANDO Administration Epoetin Chencho 10,000 unit 09/09/17 09:00 09/12/17 16:23 Procrit IV 10,000 unit MWF LUIS FERNANDO Administration Famotidine 20 mg 08/09/17 10:00 09/12/17 10:33 Pepcid PO 20 mg DAILY LUIS FERNANDO Administration Fluconazole 200 mg 09/13/17 10:00 09/13/17 10:49 Diflucan PO 200 mg DAILY LUIS FERNANDO Administration Vancomycin HCl 1 gm/ Sodium 250 mls @ 166.7 mls/hr 09/09/17 09:00 09/12/17 21 :57 Chloride IVPB 166.7 mls/hr MWF LUIS FERNANDO Administration Norepinephrine Bitartrate 4 mg 254 mls @ 15.24 mls/hr 09/13/17 11:11 18:49 / Dextrose IV 4 mcg/min .[id number] PRN 15.24 mls/hr TITRATE PER MD ORDER Administration Protocol 4 MCG/MIN Meropenem 500 mg/ Sodium 100 mls @ 200 mls/hr 09/13/17 12:00 09/14/17 00:00 Chloride IVPB 200 mls/hr Q12H LUIS FERNANDO Administration Insulin Aspart 0 unit 08/23/17 13:34 09/14/17 07:00 Novolog SC 3 unit Q6 LUIS FERNANDO Administration Protocol Insulin Detemir 43 unit 09/03/17 10:00 09/13/17 22:53 Levemir SC 43 unit Q12 LUIS FERNANDO Administration Lactobacillus Acidophilus 1 cap 08/13/17 18:00 09/13/17 18:07 Bacid Acidophilus PO 1 cap BID LUIS FERNANDO Administration Metoprolol Tartrate 50 mg 09/10/17 12:03 09/13/17 18:08 Lopressor PO Not Given BID LUIS FERNANDO Rosuvastatin Calcium 10 mg 08/06/17 22:00 08/26/17 22:41 Crestor PO 10 mg HS LUIS FERNANDO Administration Sevelamer Carbonate 1.6 gm 09/12/17 17:00 09/13/17 18:08 Renvela GT 1.6 gm TIDCC LUIS FERNANDO Administration Trimethoprim/Sulfamethoxazole 10 ml 09/12/17 22:00 09/13/17 22:04 Sulfatrim Pediatric Susp PO 10 ml Q12 LUIS FERNANDO Administration - Patient Studies Lab Studies: Microbiology Studies 09/10/17 10:38 Mycobacterial Culture - Preliminary Other: Please Indicate Lab Studies 09/14/17 09/14/17 09/14/17 Range/Units 06:14 06:14 05:30 WBC 19.8 H (4.8-10.8) K/uL RBC 3.69 L (4.40-5.90) Mil/uL Hgb 8.7 L (12.0-18.0) g/dL Hct 28.1 L (35.0-51.0) % MCV 76.3 L (80.0-94.0) fL MCH 23.7 L (27.0-31.0) pg MCHC 31.0 L (33.0-37.0) g/dL RDW 23.4 H (11.5-14.5) % Plt Count 471 H (130-400) K/uL MPV 8.1 (7.2-11.7) fL Neut % (Auto) 84.4 H (50.0-75.0) % Lymph % (Auto) 9.4 L (20.0-40.0) % [place] % (Auto) 4.8 (0.0-10.0) % Eos % (Auto) 1.1 (0.0-4.0) % Baso % (Auto) 0.3 (0.0-2.0) % Neut # 16.7 H (1.8-7.0) K/uL Lymph # 1.9 (1.0-4.3) K/uL [place] # 1.0 H (0.0-0.8) K/uL Eos # 0.2 (0.0-0.7) K/uL Baso # 0.1 (0.0-0.2) K/uL Neutrophils % (Manual) (50-75) % Band Neutrophils % (0-2) % Lymphocytes % (Manual) (20-40) % Reactive Lymphs % (0-0) % Monocytes % (Manual) (0-10) % Eosinophils % (Manual) (0-4) % Differential Comment Platelet Estimate (NORMAL) Hypochromasia (manual) Poikilocytosis (manual Anisocytosis (manual) Ovalocytes Puncture Site pCO2 (35-45) mm/Hg pO2 (80-100) mm/Hg HCO3 (21-28) mmol/L ABG pH (7.35-7.45) ABG Total CO2 (22-28) mmol/L ABG O2 Saturation (95-98) % ABG Base Excess (-2.0-3.0) mmol/L Uriel Test ABG Potassium (3.6-5.2) mmol/L A-a O2 Difference mm/Hg Respiratory Index Glucose (75-110) mg/dl Lactate (0.7-2.1) mmol/L FiO2 % Sodium 133 (132-148) mmol/L Potassium 3.7 (3.6-5.2) mmol/L Chloride 93 L (98-107) mmol/L Carbon Dioxide 24 (22-30) mmol/L Anion Gap 20 (10-20) BUN 100 H* D (9-20) mg/dL Creatinine 5.4 H (0.8-1.5) mg/dL Est GFR ( Amer) 13 Est GFR (Non-Af Amer) 10 POC Glucose (mg/dL) 274 H (65-110) mg/dL Random Glucose 285 H (75-110) mg/dL Lactic Acid (0.7-2.1) mmol/L Calcium 9.1 (8.6-10.4) mg/dl Phosphorus 3.5 (2.5-4.5) mg/dL Magnesium 2.6 H (1.6-2.3) mg/dL Total Bilirubin 0.3 (0.2-1.3) mg/dL AST 42 (17-59) U/L ALT 49 (21-72) U/L Alkaline Phosphatase 157 H (38-126) U/L Total Protein 7.5 (6.3-8.3) g/dL Albumin 2.9 L (3.5-5.0) g/dL Globulin 4.6 H (2.2-3.9) gm/dL Albumin/Globulin Ratio 0.6 L (1.0-2.1) Arterial Blood Potassium (3.6-5.2) mmol/L M.pneumoniae IgG Titer (<=0.90) 09/13/17 09/13/17 09/13/17 Range/Units 23:55 17:39 15:11 WBC (4.8-10.8) K/uL RBC (4.40-5.90) Mil/uL Hgb (12.0-18.0) g/dL Hct (35.0-51.0) % MCV (80.0-94.0) fL MCH (27.0-31.0) pg MCHC (33.0-37.0) g/dL RDW (11.5-14.5) % Plt Count (130-400) K/uL MPV (7.2-11.7) fL Neut % (Auto) (50.0-75.0) % Lymph % (Auto) (20.0-40.0) % [place] % (Auto) (0.0-10.0) % Eos % (Auto) (0.0-4.0) % Baso % (Auto) (0.0-2.0) % Neut # (1.8-7.0) K/uL Lymph # (1.0-4.3) K/uL [place] # (0.0-0.8) K/uL Eos # (0.0-0.7) K/uL Baso # (0.0-0.2) K/uL Neutrophils % (Manual) (50-75) % Band Neutrophils % (0-2) % Lymphocytes % (Manual) (20-40) % Reactive Lymphs % (0-0) % Monocytes % (Manual) (0-10) % Eosinophils % (Manual) (0-4) % Differential Comment Platelet Estimate (NORMAL) Hypochromasia (manual) Poikilocytosis (manual Anisocytosis (manual) Ovalocytes Puncture Site pCO2 (35-45) mm/Hg pO2 (80-100) mm/Hg HCO3 (21-28) mmol/L ABG pH (7.35-7.45) ABG Total CO2 (22-28) mmol/L ABG O2 Saturation (95-98) % ABG Base Excess (-2.0-3.0) mmol/L Uriel Test ABG Potassium (3.6-5.2) mmol/L A-a O2 Difference mm/Hg Respiratory Index Glucose (75-110) mg/dl Lactate (0.7-2.1) mmol/L FiO2 % Sodium (132-148) mmol/L Potassium (3.6-5.2) mmol/L Chloride (98-107) mmol/L Carbon Dioxide (22-30) mmol/L Anion Gap (10-20) BUN (9-20) mg/dL Creatinine (0.8-1.5) mg/dL Est GFR ( Amer) Est GFR (Non-Af Amer) POC Glucose (mg/dL) 300 H 322 H (65-110) mg/dL Random Glucose (75-110) mg/dL Lactic Acid 2.4 H (0.7-2.1) mmol/L Calcium (8.6-10.4) mg/dl Phosphorus (2.5-4.5) mg/dL Magnesium (1.6-2.3) mg/dL Total Bilirubin (0.2-1.3) mg/dL AST (17-59) U/L ALT (21-72) U/L Alkaline Phosphatase (38-126) U/L Total Protein (6.3-8.3) g/dL Albumin (3.5-5.0) g/dL Globulin (2.2-3.9) gm/dL Albumin/Globulin Ratio (1.0-2.1) Arterial Blood Potassium (3.6-5.2) mmol/L M.pneumoniae IgG Titer (<=0.90) 09/13/17 09/13/17 09/13/17 Range/Units 13:23 13:23 13:21 WBC 20.4 H (4.8-10.8) K/uL RBC 3.95 L (4.40-5.90) Mil/uL Hgb 9.4 L (12.0-18.0) g/dL Hct 30.1 L (35.0-51.0) % MCV 76.1 L (80.0-94.0) fL MCH 23.8 L (27.0-31.0) pg MCHC 31.2 L (33.0-37.0) g/dL RDW 22.9 H (11.5-14.5) % Plt Count 520 H (130-400) K/uL MPV 8.2 (7.2-11.7) fL Neut % (Auto) 83.8 H (50.0-75.0) % Lymph % (Auto) 8.8 L (20.0-40.0) % [place] % (Auto) 5.9 (0.0-10.0) % Eos % (Auto) 1.0 (0.0-4.0) % Baso % (Auto) 0.5 (0.0-2.0) % Neut # 17.1 H (1.8-7.0) K/uL Lymph # 1.8 (1.0-4.3) K/uL [place] # 1.2 H (0.0-0.8) K/uL Eos # 0.2 (0.0-0.7) K/uL Baso # 0.1 (0.0-0.2) K/uL Neutrophils % (Manual) 82 H (50-75) % Band Neutrophils % 6 H (0-2) % Lymphocytes % (Manual) 9 L (20-40) % Reactive Lymphs % 1 H (0-0) % Monocytes % (Manual) 1 (0-10) % Eosinophils % (Manual) 1 (0-4) % Differential Comment Platelet Estimate Increased H (NORMAL) Hypochromasia (manual) Slight Poikilocytosis (manual Slight Anisocytosis (manual) Moderate Ovalocytes Slight Puncture Site pCO2 (35-45) mm/Hg pO2 (80-100) mm/Hg HCO3 (21-28) mmol/L ABG pH (7.35-7.45) ABG Total CO2 (22-28) mmol/L ABG O2 Saturation (95-98) % ABG Base Excess (-2.0-3.0) mmol/L Uriel Test ABG Potassium (3.6-5.2) mmol/L A-a O2 Difference mm/Hg Respiratory Index Glucose (75-110) mg/dl Lactate (0.7-2.1) mmol/L FiO2 % Sodium 132 (132-148) mmol/L Potassium 4.1 (3.6-5.2) mmol/L Chloride 93 L (98-107) mmol/L Carbon Dioxide 28 (22-30) mmol/L Anion Gap 16 (10-20) BUN 82 H (9-20) mg/dL Creatinine 4.6 H (0.8-1.5) mg/dL Est GFR ( Amer) 15 Est GFR (Non-Af Amer) 12 POC Glucose (mg/dL) 312 H (65-110) mg/dL Random Glucose 257 H (75-110) mg/dL Lactic Acid (0.7-2.1) mmol/L Calcium 9.4 (8.6-10.4) mg/dl Phosphorus 3.2 (2.5-4.5) mg/dL Magnesium 2.5 H (1.6-2.3) mg/dL Total Bilirubin 0.5 (0.2-1.3) mg/dL AST 67 H (17-59) U/L ALT 73 H (21-72) U/L Alkaline Phosphatase 183 H (38-126) U/L Total Protein 8.3 (6.3-8.3) g/dL Albumin 3.2 L (3.5-5.0) g/dL Globulin 5.1 H (2.2-3.9) gm/dL Albumin/Globulin Ratio 0.6 L (1.0-2.1) Arterial Blood Potassium (3.6-5.2) mmol/L M.pneumoniae IgG Titer (<=0.90) 09/13/17 09/13/17 09/13/17 Range/Units 11:35 10:59 07:23 WBC (4.8-10.8) K/uL RBC (4.40-5.90) Mil/uL Hgb (12.0-18.0) g/dL Hct (35.0-51.0) % MCV (80.0-94.0) fL MCH (27.0-31.0) pg MCHC (33.0-37.0) g/dL RDW (11.5-14.5) % Plt Count (130-400) K/uL MPV (7.2-11.7) fL Neut % (Auto) (50.0-75.0) % Lymph % (Auto) (20.0-40.0) % [place] % (Auto) (0.0-10.0) % Eos % (Auto) (0.0-4.0) % Baso % (Auto) (0.0-2.0) % Neut # (1.8-7.0) K/uL Lymph # (1.0-4.3) K/uL [place] # (0.0-0.8) K/uL Eos # (0.0-0.7) K/uL Baso # (0.0-0.2) K/uL Neutrophils % (Manual) (50-75) % Band Neutrophils % (0-2) % Lymphocytes % (Manual) (20-40) % Reactive Lymphs % (0-0) % Monocytes % (Manual) (0-10) % Eosinophils % (Manual) (0-4) % Differential Comment Platelet Estimate (NORMAL) Hypochromasia (manual) Poikilocytosis (manual Anisocytosis (manual) Ovalocytes Puncture Site Lb pCO2 38 (35-45) mm/Hg pO2 55 L (80-100) mm/Hg HCO3 27.8 (21-28) mmol/L ABG pH 7.47 H (7.35-7.45) ABG Total CO2 28.9 H (22-28) mmol/L ABG O2 Saturation 92.0 L (95-98) % ABG Base Excess 3.9 H (-2.0-3.0) mmol/L Uriel Test Na ABG Potassium 3.7 (3.6-5.2) mmol/L A-a O2 Difference 147.0 mm/Hg Respiratory Index 2.7 Glucose 279 H (75-110) mg/dl Lactate 2.2 H (0.7-2.1) mmol/L FiO2 35.0 % Sodium 135.0 132 (132-148) mmol/L Potassium 4.2 (3.6-5.2) mmol/L Chloride 99.0 91 L (98-107) mmol/L Carbon Dioxide 26 (22-30) mmol/L Anion Gap 19 (10-20) BUN 72 H (9-20) mg/dL Creatinine 4.2 H (0.8-1.5) mg/dL Est GFR ( Amer) 17 Est GFR (Non-Af Amer) 14 POC Glucose (mg/dL) 312 H (65-110) mg/dL Random Glucose 237 H (75-110) mg/dL Lactic Acid (0.7-2.1) mmol/L Calcium 9.0 (8.6-10.4) mg/dl Phosphorus 3.3 (2.5-4.5) mg/dL Magnesium 2.4 H (1.6-2.3) mg/dL Total Bilirubin 0.5 (0.2-1.3) mg/dL AST 79 H (17-59) U/L ALT 62 (21-72) U/L Alkaline Phosphatase 167 H (38-126) U/L Total Protein 7.5 (6.3-8.3) g/dL Albumin 3.1 L (3.5-5.0) g/dL Globulin 4.4 H (2.2-3.9) gm/dL Albumin/Globulin Ratio 0.7 L (1.0-2.1) Arterial Blood Potassium 3.7 (3.6-5.2) mmol/L M.pneumoniae IgG Titer (<=0.90) 09/13/17 09/07/17 Range/Units 07:23 06:23 WBC (4.8-10.8) K/uL RBC (4.40-5.90) Mil/uL Hgb (12.0-18.0) g/dL Hct (35.0-51.0) % MCV (80.0-94.0) fL MCH (27.0-31.0) pg MCHC (33.0-37.0) g/dL RDW (11.5-14.5) % Plt Count (130-400) K/uL MPV (7.2-11.7) fL Neut % (Auto) (50.0-75.0) % Lymph % (Auto) (20.0-40.0) % [place] % (Auto) (0.0-10.0) % Eos % (Auto) (0.0-4.0) % Baso % (Auto) (0.0-2.0) % Neut # (1.8-7.0) K/uL Lymph # (1.0-4.3) K/uL [place] # (0.0-0.8) K/uL Eos # (0.0-0.7) K/uL Baso # (0.0-0.2) K/uL Neutrophils % (Manual) (50-75) % Band Neutrophils % (0-2) % Lymphocytes % (Manual) (20-40) % Reactive Lymphs % (0-0) % Monocytes % (Manual) (0-10) % Eosinophils % (Manual) (0-4) % Differential Comment Platelet Estimate (NORMAL) Hypochromasia (manual) Poikilocytosis (manual Anisocytosis (manual) Ovalocytes Puncture Site pCO2 (35-45) mm/Hg pO2 (80-100) mm/Hg HCO3 (21-28) mmol/L ABG pH (7.35-7.45) ABG Total CO2 (22-28) mmol/L ABG O2 Saturation (95-98) % ABG Base Excess (-2.0-3.0) mmol/L Uriel Test ABG Potassium (3.6-5.2) mmol/L A-a O2 Difference mm/Hg Respiratory Index Glucose (75-110) mg/dl Lactate (0.7-2.1) mmol/L FiO2 % Sodium (132-148) mmol/L Potassium (3.6-5.2) mmol/L Chloride (98-107) mmol/L Carbon Dioxide (22-30) mmol/L Anion Gap (10-20) BUN (9-20) mg/dL Creatinine (0.8-1.5) mg/dL Est GFR ( Amer) Est GFR (Non-Af Amer) POC Glucose (mg/dL) (65-110) mg/dL Random Glucose (75-110) mg/dL Lactic Acid (0.7-2.1) mmol/L Calcium (8.6-10.4) mg/dl Phosphorus (2.5-4.5) mg/dL Magnesium (1.6-2.3) mg/dL Total Bilirubin (0.2-1.3) mg/dL AST (17-59) U/L ALT (21-72) U/L Alkaline Phosphatase (38-126) U/L Total Protein (6.3-8.3) g/dL Albumin (3.5-5.0) g/dL Globulin (2.2-3.9) gm/dL Albumin/Globulin Ratio (1.0-2.1) Arterial Blood Potassium (3.6-5.2) mmol/L M.pneumoniae IgG Titer 0.65 (<=0.90) Laboratory Results - last 24 hr 09/07/17 09/13/17 09/13/17 06:23 07:23 07:23 WBC RBC Hgb Hct MCV MCH MCHC RDW Plt Count MPV Neut % (Auto) Lymph % (Auto) [place] % (Auto) Eos % (Auto) Baso % (Auto) Neut # Lymph # [place] # Eos # Baso # Neutrophils % (Manual) Band Neutrophils % Lymphocytes % (Manual) Reactive Lymphs % Monocytes % (Manual) Eosinophils % (Manual) Differential Comment Platelet Estimate Hypochromasia (manual) Poikilocytosis (manual Anisocytosis (manual) Ovalocytes Puncture Site pCO2 pO2 HCO3 ABG pH ABG Total CO2 ABG O2 Saturation ABG Base Excess Uriel Test ABG Potassium A-a O2 Difference Respiratory Index Glucose Lactate FiO2 Sodium 132 Potassium 4.2 Chloride 91 L Carbon Dioxide 26 Anion Gap 19 BUN 72 H Creatinine 4.2 H Est GFR ( Amer) 17 Est GFR (Non-Af Amer) 14 POC Glucose (mg/dL) Random Glucose 237 H Lactic Acid Calcium 9.0 Phosphorus 3.3 Magnesium 2.4 H Total Bilirubin 0.5 AST 79 H ALT 62 Alkaline Phosphatase 167 H Total Protein 7.5 Albumin 3.1 L Globulin 4.4 H Albumin/Globulin Ratio 0.7 L Arterial Blood Potassium M.pneumoniae IgG Titer 0.65 09/13/17 09/13/17 09/13/17 10:59 11:35 13:21 WBC RBC Hgb Hct MCV MCH MCHC RDW Plt Count MPV Neut % (Auto) Lymph % (Auto) [place] % (Auto) Eos % (Auto) Baso % (Auto) Neut # Lymph # [place] # Eos # Baso # Neutrophils % (Manual) Band Neutrophils % Lymphocytes % (Manual) Reactive Lymphs % Monocytes % (Manual) Eosinophils % (Manual) Differential Comment Platelet Estimate Hypochromasia (manual) Poikilocytosis (manual Anisocytosis (manual) Ovalocytes Puncture Site Lb pCO2 38 pO2 55 L HCO3 27.8 ABG pH 7.47 H ABG Total CO2 28.9 H ABG O2 Saturation 92.0 L ABG Base Excess 3.9 H Uriel Test Na ABG Potassium 3.7 A-a O2 Difference 147.0 Respiratory Index 2.7 Glucose 279 H Lactate 2.2 H FiO2 35.0 Sodium 135.0 Potassium Chloride 99.0 Carbon Dioxide Anion Gap BUN Creatinine Est GFR ( Amer) Est GFR (Non-Af Amer) POC Glucose (mg/dL) 312 H 312 H Random Glucose Lactic Acid Calcium Phosphorus Magnesium Total Bilirubin AST ALT Alkaline Phosphatase Total Protein Albumin Globulin Albumin/Globulin Ratio Arterial Blood Potassium 3.7 M.pneumoniae IgG Titer 09/13/17 09/13/17 09/13/17 13:23 13:23 15:11 WBC 20.4 H RBC 3.95 L Hgb 9.4 L Hct 30.1 L MCV 76.1 L MCH 23.8 L MCHC 31.2 L RDW 22.9 H Plt Count 520 H MPV 8.2 Neut % (Auto) 83.8 H Lymph % (Auto) 8.8 L [place] % (Auto) 5.9 Eos % (Auto) 1.0 Baso % (Auto) 0.5 Neut # 17.1 H Lymph # 1.8 [place] # 1.2 H Eos # 0.2 Baso # 0.1 Neutrophils % (Manual) 82 H Band Neutrophils % 6 H Lymphocytes % (Manual) 9 L Reactive Lymphs % 1 H Monocytes % (Manual) 1 Eosinophils % (Manual) 1 Differential Comment Platelet Estimate Increased H Hypochromasia (manual) Slight Poikilocytosis (manual Slight Anisocytosis (manual) Moderate Ovalocytes Slight Puncture Site pCO2 pO2 HCO3 ABG pH ABG Total CO2 ABG O2 Saturation ABG Base Excess Uriel Test ABG Potassium A-a O2 Difference Respiratory Index Glucose Lactate FiO2 Sodium 132 Potassium 4.1 Chloride 93 L Carbon Dioxide 28 Anion Gap 16 BUN 82 H Creatinine 4.6 H Est GFR ( Amer) 15 Est GFR (Non-Af Amer) 12 POC Glucose (mg/dL) Random Glucose 257 H Lactic Acid 2.4 H Calcium 9.4 Phosphorus 3.2 Magnesium 2.5 H Total Bilirubin 0.5 AST 67 H ALT 73 H Alkaline Phosphatase 183 H Total Protein 8.3 Albumin 3.2 L Globulin 5.1 H Albumin/Globulin Ratio 0.6 L Arterial Blood Potassium M.pneumoniae IgG Titer 09/13/17 09/13/17 09/14/17 17:39 23:55 05:30 WBC RBC Hgb Hct MCV MCH MCHC RDW Plt Count MPV Neut % (Auto) Lymph % (Auto) [place] % (Auto) Eos % (Auto) Baso % (Auto) Neut # Lymph # [place] # Eos # Baso # Neutrophils % (Manual) Band Neutrophils % Lymphocytes % (Manual) Reactive Lymphs % Monocytes % (Manual) Eosinophils % (Manual) Differential Comment Platelet Estimate Hypochromasia (manual) Poikilocytosis (manual Anisocytosis (manual) Ovalocytes Puncture Site pCO2 pO2 HCO3 ABG pH ABG Total CO2 ABG O2 Saturation ABG Base Excess Uriel Test ABG Potassium A-a O2 Difference Respiratory Index Glucose Lactate FiO2 Sodium Potassium Chloride Carbon Dioxide Anion Gap BUN Creatinine Est GFR ( Amer) Est GFR (Non-Af Amer) POC Glucose (mg/dL) 322 H 300 H 274 H Random Glucose Lactic Acid Calcium Phosphorus Magnesium Total Bilirubin AST ALT Alkaline Phosphatase Total Protein Albumin Globulin Albumin/Globulin Ratio Arterial Blood Potassium M.pneumoniae IgG Titer 09/14/17 09/14/17 06:14 06:14 WBC 19.8 H RBC 3.69 L Hgb 8.7 L Hct 28.1 L MCV 76.3 L MCH 23.7 L MCHC 31.0 L RDW 23.4 H Plt Count 471 H MPV 8.1 Neut % (Auto) 84.4 H Lymph % (Auto) 9.4 L [place] % (Auto) 4.8 Eos % (Auto) 1.1 Baso % (Auto) 0.3 Neut # 16.7 H Lymph # 1.9 [place] # 1.0 H Eos # 0.2 Baso # 0.1 Neutrophils % (Manual) Band Neutrophils % Lymphocytes % (Manual) Reactive Lymphs % Monocytes % (Manual) Eosinophils % (Manual) Differential Comment Platelet Estimate Hypochromasia (manual) Poikilocytosis (manual Anisocytosis (manual) Ovalocytes Puncture Site pCO2 pO2 HCO3 ABG pH ABG Total CO2 ABG O2 Saturation ABG Base Excess Uriel Test ABG Potassium A-a O2 Difference Respiratory Index Glucose Lactate FiO2 Sodium 133 Potassium 3.7 Chloride 93 L Carbon Dioxide 24 Anion Gap 20 BUN 100 H* D Creatinine 5.4 H Est GFR ( Amer) 13 Est GFR (Non-Af Amer) 10 POC Glucose (mg/dL) Random Glucose 285 H Lactic Acid Calcium 9.1 Phosphorus 3.5 Magnesium 2.6 H Total Bilirubin 0.3 AST 42 ALT 49 Alkaline Phosphatase 157 H Total Protein 7.5 Albumin 2.9 L Globulin 4.6 H Albumin/Globulin Ratio 0.6 L Arterial Blood Potassium M.pneumoniae IgG Titer Fingerstick Blood Sugar Results: 274 Review of Systems - Review of Systems Review of Systems: Unable to evaluate adequate ROS due to patient's current clinicals status Critical Care Progress Note - Nutrition Nutrition: Nutrition Category Date Time Status NPO Diet [DIET] Diets 08/21/17 Dinner Active Assessment/Plan - Assessment and Plan (Free Text) Assessment: Patient is a 77 year old male with PMHx significant for CAD with prior stent placement, HTN, HLD, DM 2, CKD, Anemia, permanent pacemaker, prior DVT and chronic lower extremity edema presents with complaints of chest pain and shortness of breath with ambulation (08/06/17). Patient was admitted to ICU on from hospital floors due to code blue as patient was enrouting to get a CT scan. Patient is currently with a tracheostomy due to respiratory distress secondary to cardiac arrest. Patient was transferred to telemetery on 08/29/17. Patient was transferred back to the ICU today due to [employer]CH[employer] for hypotension (84/48) ; patient was started on levophed at 4mcg/min. Plan: Today: Levophed stopped at 5am and blood pressure has been in a stable range * Continue current management Plan: Neuro: Alert, minimally verbal Pulm: Respiratory distress secondary to cardiac arrest Medication/Management: * Tracheostomy * Acetylcysteine 20% 4ML INH RQ6 * Duoneb 3ml INH RQ6 CV: Hypotension S/p Cardica arrest (08/10/17), Hx of CAD with prior stent placement, HTN, HLD, [facility]amper, Dr. Cortés----> Help appreciated Medication/Management: * Levophed 4mcg/min (Stopped 09/14/17) * Eliquis 2.5mg PO BID * Aspirin 81mg PO daily * Lopressor 50mg PO BID ( Held due to hypotension) * Crestor 10mg PO HS ( Held due to elevated LFTs) Renal: CKD Np, Dr. Miranda---> Help appreciated - HD (MWF) via perma cath - Phoslo 1,334mg GT TID - Procrit 10,000 unit IV MWF -Sevelamer Carbonate 1.6gm GT TIDCC Endo: DM type 2 - ISS- low dose protocol - Levemir 43 unit SC Q12H GI: Constipation, Elevated LFTs * Monitor bowel movement * LFTs stable ID: Leukocytosis, Sputum culture ( Enterobacter Cloacae sp, yeast species- 09/07) and blood culture ( Coagulase neg staphy-09/05/17) ID, Dr. Zimmer----> Help appreciated Medications: * Meropenen 500mg IVBP Q12H * Bactrim 10ml PO q12 * Diflucan 200mg PO daily Prophylaxis DVT: SCDs and Eliquis 2.5mg PO BID GI: pepcid 20 mg PO daily, Lactobacillus 1 cap PO BID <Elkin Mena - Last Filed: 09/14/17 16:37> CCU Objective - Vital Signs / Intake & Output Vital Signs (Last 4 hours): Vital Signs Temp Pulse Pulse Resp BP BP Pulse Ox 09/14/17 16:32 101/41 L 09/14/17 16:01 95/39 L 09/14/17 15:32 82/63 L 09/14/17 15:02 87/45 L 09/14/17 14:54 110 H 17 74/40 L 99 09/14/17 14:47 74/46 L 09/14/17 14:32 106/43 L 09/14/17 14:17 104/40 L 09/14/17 14:02 98.8 F 106 H 18 109/36 L 99 09/14/17 14:00 98.8 F 106 H 18 106/36 L 09/14/17 13:27 105 H 15 112/32 L 93 L 09/14/17 13:00 101 H 14 97 Intake and Output (Last 8hrs): Intake & Output 09/14/17 09/14/17 09/14/17 06:59 14:59 22:59 Intake Total 471.4 634 65 Output Total 0 0 Balance 471.4 634 65 Weight 169 lb 12.095 oz Intake: IV 104 Intake, IV Amount 71.4 0 15 Right Proximal Port 71.4 0 15 Tube Feeding 400 400 50 Other 130 Output: Urine 0 0 Urine, Voided 0 0 Other: # Bowel Movements 1 - Medications Active Medications: Active Medications Generic Name Dose Route Start Last Admin Trade Name Freq PRN Reason Stop Dose Admin Acetylcysteine 4 ml 09/06/17 14:00 09/14/17 13:29 Acetylcysteine 20% INH 4 ml RQ6 LUIS FERNANDO Administration Albuterol/Ipratropium 3 ml 09/01/17 02:00 09/14/17 13:29 Duoneb 3 Mg/0.5 Mg (3 Ml) Ud INH 3 ml RQ6 LUIS FERNANDO Administration Apixaban 2.5 mg 08/27/17 12:00 09/14/17 09:16 Eliquis PO 2.5 mg BID LUIS FERNANDO Administration Aspirin 81 mg 08/26/17 14:00 09/14/17 09:16 Aspirin Chewable PO 81 mg DAILY LUIS FERNANDO Administration Epoetin Chencho 10,000 unit 09/09/17 09:00 09/14/17 15:15 Procrit IV 10,000 unit [facility] [place] Administration Famotidine 20 mg 08/09/17 10:00 09/14/17 09:16 Pepcid PO 20 mg DAILY LUIS FERNANDO Administration Fluconazole 200 mg 09/13/17 10:00 09/14/17 09:16 Diflucan PO 200 mg DAILY [facility] Administration Vancomycin HCl 1 gm/ Sodium 250 mls @ 166.7 mls/hr 09/09/17 09:00 09/12/17 21 :57 Chloride IVPB 166.7 mls/hr [facility] [place] Administration Norepinephrine Bitartrate 4 mg 254 mls @ 15.24 mls/hr 09/13/17 11:11 14:54 / Dextrose IV 4 mcg/min .[id number] PRN 15.24 mls/hr TITRATE PER MD ORDER Administration Protocol 4 MCG/MIN Meropenem 500 mg/ Sodium 100 mls @ 200 mls/hr 09/13/17 12:00 09/14/17 12:11 Chloride IVPB 200 mls/hr Q12H LUIS FERNANDO Administration Insulin Aspart 0 unit 09/14/17 12:00 09/14/17 11:52 Novolog SC 6 unit Q6 LUIS FERNANDO Administration Protocol Insulin Detemir 43 unit 09/03/17 10:00 09/14/17 09:15 Levemir SC 43 unit Q12 LUIS FERNANDO Administration Lactobacillus Acidophilus 1 cap 08/13/17 18:00 09/14/17 09:16 Bacid Acidophilus PO 1 cap BID LUIS FERNANDO Administration Metoprolol Tartrate 50 mg 09/10/17 12:03 09/14/17 09:00 Lopressor PO Not Given BID LUIS FERNANDO Rosuvastatin Calcium 10 mg 08/06/17 22:00 08/26/17 22:41 Crestor PO 10 mg HS LUIS FERNANDO Administration Sevelamer Carbonate 1.6 gm 09/12/17 17:00 09/14/17 11:17 Renvela GT 1.6 gm TIDCC LUIS FERNANDO Administration Trimethoprim/Sulfamethoxazole 10 ml 09/12/17 22:00 09/14/17 09:20 Sulfatrim Pediatric Susp PO 10 ml Q12 LUIS FERNANDO Administration - Patient Studies Lab Studies: Microbiology Studies 09/13/17 12:30 Blood Culture - Preliminary Blood-Venous NO GROWTH AFTER 24 HOURS 09/13/17 13:00 Blood Culture - Preliminary Blood-Venous NO GROWTH AFTER 24 HOURS 09/13/17 13:42 MRSA Culture (Admit) - Final Naris MRSA NOT DETECTED 09/10/17 10:38 Mycobacterial Culture - Preliminary Other: Please Indicate Lab Studies 09/14/17 09/14/17 09/14/17 Range/Units 11:47 11:26 10:41 WBC (4.8-10.8) K/uL RBC (4.40-5.90) Mil/uL Hgb (12.0-18.0) g/dL Hct (35.0-51.0) % MCV (80.0-94.0) fL MCH (27.0-31.0) pg MCHC (33.0-37.0) g/dL RDW (11.5-14.5) % Plt Count (130-400) K/uL MPV (7.2-11.7) fL Neut % (Auto) (50.0-75.0) % Lymph % (Auto) (20.0-40.0) % [place] % (Auto) (0.0-10.0) % Eos % (Auto) (0.0-4.0) % Baso % (Auto) (0.0-2.0) % Neut # (1.8-7.0) K/uL Lymph # (1.0-4.3) K/uL [place] # (0.0-0.8) K/uL Eos # (0.0-0.7) K/uL Baso # (0.0-0.2) K/uL Neutrophils % (Manual) (50-75) % Band Neutrophils % (0-2) % Lymphocytes % (Manual) (20-40) % Monocytes % (Manual) (0-10) % Eosinophils % (Manual) (0-4) % Myelocytes % (0-0) % Platelet Estimate (NORMAL) Hypochromasia (manual) Anisocytosis (manual) Ovalocytes ESR 89 H (0-15) mm/hr Sodium (132-148) mmol/L Potassium (3.6-5.2) mmol/L Chloride (98-107) mmol/L Carbon Dioxide (22-30) mmol/L Anion Gap (10-20) BUN (9-20) mg/dL Creatinine (0.8-1.5) mg/dL Est GFR ( Amer) Est GFR (Non-Af Amer) POC Glucose (mg/dL) 257 H (65-110) mg/dL Random Glucose (75-110) mg/dL Calcium (8.6-10.4) mg/dl Phosphorus (2.5-4.5) mg/dL Magnesium (1.6-2.3) mg/dL Total Bilirubin (0.2-1.3) mg/dL AST (17-59) U/L ALT (21-72) U/L Alkaline Phosphatase (38-126) U/L Total Protein (6.3-8.3) g/dL Albumin (3.5-5.0) g/dL Globulin (2.2-3.9) gm/dL Albumin/Globulin Ratio (1.0-2.1) Random Vancomycin 21.00 ug/mL M.pneumoniae IgG Titer (<=0.90) 09/14/17 09/14/17 09/14/17 Range/Units 06:14 06:14 05:30 WBC 19.8 H (4.8-10.8) K/uL RBC 3.69 L (4.40-5.90) Mil/uL Hgb 8.7 L (12.0-18.0) g/dL Hct 28.1 L (35.0-51.0) % MCV 76.3 L (80.0-94.0) fL MCH 23.7 L (27.0-31.0) pg MCHC 31.0 L (33.0-37.0) g/dL RDW 23.4 H (11.5-14.5) % Plt Count 471 H (130-400) K/uL MPV 8.1 (7.2-11.7) fL Neut % (Auto) 84.4 H (50.0-75.0) % Lymph % (Auto) 9.4 L (20.0-40.0) % [place] % (Auto) 4.8 (0.0-10.0) % Eos % (Auto) 1.1 (0.0-4.0) % Baso % (Auto) 0.3 (0.0-2.0) % Neut # 16.7 H (1.8-7.0) K/uL Lymph # 1.9 (1.0-4.3) K/uL [place] # 1.0 H (0.0-0.8) K/uL Eos # 0.2 (0.0-0.7) K/uL Baso # 0.1 (0.0-0.2) K/uL Neutrophils % (Manual) 86 H (50-75) % Band Neutrophils % 1 (0-2) % Lymphocytes % (Manual) 8 L (20-40) % Monocytes % (Manual) 2 (0-10) % Eosinophils % (Manual) 2 (0-4) % Myelocytes % 1 H (0-0) % Platelet Estimate Slightly increased H (NORMAL) Hypochromasia (manual) Slight Anisocytosis (manual) Moderate Ovalocytes Slight ESR (0-15) mm/hr Sodium 133 (132-148) mmol/L Potassium 3.7 (3.6-5.2) mmol/L Chloride 93 L (98-107) mmol/L Carbon Dioxide 24 (22-30) mmol/L Anion Gap 20 (10-20) BUN 100 H* D (9-20) mg/dL Creatinine 5.4 H (0.8-1.5) mg/dL Est GFR ( Amer) 13 Est GFR (Non-Af Amer) 10 POC Glucose (mg/dL) 274 H (65-110) mg/dL Random Glucose 285 H (75-110) mg/dL Calcium 9.1 (8.6-10.4) mg/dl Phosphorus 3.5 (2.5-4.5) mg/dL Magnesium 2.6 H (1.6-2.3) mg/dL Total Bilirubin 0.3 (0.2-1.3) mg/dL AST 42 (17-59) U/L ALT 49 (21-72) U/L Alkaline Phosphatase 157 H (38-126) U/L Total Protein 7.5 (6.3-8.3) g/dL Albumin 2.9 L (3.5-5.0) g/dL Globulin 4.6 H (2.2-3.9) gm/dL Albumin/Globulin Ratio 0.6 L (1.0-2.1) Random Vancomycin ug/mL M.pneumoniae IgG Titer (<=0.90) 09/13/17 09/13/17 09/07/17 Range/Units 23:55 17:39 06:23 WBC (4.8-10.8) K/uL RBC (4.40-5.90) Mil/uL Hgb (12.0-18.0) g/dL Hct (35.0-51.0) % MCV (80.0-94.0) fL MCH (27.0-31.0) pg MCHC (33.0-37.0) g/dL RDW (11.5-14.5) % Plt Count (130-400) K/uL MPV (7.2-11.7) fL Neut % (Auto) (50.0-75.0) % Lymph % (Auto) (20.0-40.0) % [place] % (Auto) (0.0-10.0) % Eos % (Auto) (0.0-4.0) % Baso % (Auto) (0.0-2.0) % Neut # (1.8-7.0) K/uL Lymph # (1.0-4.3) K/uL [place] # (0.0-0.8) K/uL Eos # (0.0-0.7) K/uL Baso # (0.0-0.2) K/uL Neutrophils % (Manual) (50-75) % Band Neutrophils % (0-2) % Lymphocytes % (Manual) (20-40) % Monocytes % (Manual) (0-10) % Eosinophils % (Manual) (0-4) % Myelocytes % (0-0) % Platelet Estimate (NORMAL) Hypochromasia (manual) Anisocytosis (manual) Ovalocytes ESR (0-15) mm/hr Sodium (132-148) mmol/L Potassium (3.6-5.2) mmol/L Chloride (98-107) mmol/L Carbon Dioxide (22-30) mmol/L Anion Gap (10-20) BUN (9-20) mg/dL Creatinine (0.8-1.5) mg/dL Est GFR ( Amer) Est GFR (Non-Af Amer) POC Glucose (mg/dL) 300 H 322 H (65-110) mg/dL Random Glucose (75-110) mg/dL Calcium (8.6-10.4) mg/dl Phosphorus (2.5-4.5) mg/dL Magnesium (1.6-2.3) mg/dL Total Bilirubin (0.2-1.3) mg/dL AST (17-59) U/L ALT (21-72) U/L Alkaline Phosphatase (38-126) U/L Total Protein (6.3-8.3) g/dL Albumin (3.5-5.0) g/dL Globulin (2.2-3.9) gm/dL Albumin/Globulin Ratio (1.0-2.1) Random Vancomycin ug/mL M.pneumoniae IgG Titer 0.65 (<=0.90) Laboratory Results - last 24 hr 09/07/17 09/13/17 09/13/17 06:23 17:39 23:55 WBC RBC Hgb Hct MCV MCH MCHC RDW Plt Count MPV Neut % (Auto) Lymph % (Auto) [place] % (Auto) Eos % (Auto) Baso % (Auto) Neut # Lymph # [place] # Eos # Baso # Neutrophils % (Manual) Band Neutrophils % Lymphocytes % (Manual) Monocytes % (Manual) Eosinophils % (Manual) Myelocytes % Platelet Estimate Hypochromasia (manual) Anisocytosis (manual) Ovalocytes ESR Sodium Potassium Chloride Carbon Dioxide Anion Gap BUN Creatinine Est GFR ( Amer) Est GFR (Non-Af Amer) POC Glucose (mg/dL) 322 H 300 H Random Glucose Calcium Phosphorus Magnesium Total Bilirubin AST ALT Alkaline Phosphatase Total Protein Albumin Globulin Albumin/Globulin Ratio Random Vancomycin M.pneumoniae IgG Titer 0.65 09/14/17 09/14/17 09/14/17 05:30 06:14 06:14 WBC 19.8 H RBC 3.69 L Hgb 8.7 L Hct 28.1 L MCV 76.3 L MCH 23.7 L MCHC 31.0 L RDW 23.4 H Plt Count 471 H MPV 8.1 Neut % (Auto) 84.4 H Lymph % (Auto) 9.4 L [place] % (Auto) 4.8 Eos % (Auto) 1.1 Baso % (Auto) 0.3 Neut # 16.7 H Lymph # 1.9 [place] # 1.0 H Eos # 0.2 Baso # 0.1 Neutrophils % (Manual) 86 H Band Neutrophils % 1 Lymphocytes % (Manual) 8 L Monocytes % (Manual) 2 Eosinophils % (Manual) 2 Myelocytes % 1 H Platelet Estimate Slightly increased H Hypochromasia (manual) Slight Anisocytosis (manual) Moderate Ovalocytes Slight ESR Sodium 133 Potassium 3.7 Chloride 93 L Carbon Dioxide 24 Anion Gap 20 BUN 100 H* D Creatinine 5.4 H Est GFR ( Amer) 13 Est GFR (Non-Af Amer) 10 POC Glucose (mg/dL) 274 H Random Glucose 285 H Calcium 9.1 Phosphorus 3.5 Magnesium 2.6 H Total Bilirubin 0.3 AST 42 ALT 49 Alkaline Phosphatase 157 H Total Protein 7.5 Albumin 2.9 L Globulin 4.6 H Albumin/Globulin Ratio 0.6 L Random Vancomycin M.pneumoniae IgG Titer 09/14/17 09/14/17 09/14/17 10:41 11:26 11:47 WBC RBC Hgb Hct MCV MCH MCHC RDW Plt Count MPV Neut % (Auto) Lymph % (Auto) [place] % (Auto) Eos % (Auto) Baso % (Auto) Neut # Lymph # [place] # Eos # Baso # Neutrophils % (Manual) Band Neutrophils % Lymphocytes % (Manual) Monocytes % (Manual) Eosinophils % (Manual) Myelocytes % Platelet Estimate Hypochromasia (manual) Anisocytosis (manual) Ovalocytes ESR 89 H Sodium Potassium Chloride Carbon Dioxide Anion Gap BUN Creatinine Est GFR ( Amer) Est GFR (Non-Af Amer) POC Glucose (mg/dL) 257 H Random Glucose Calcium Phosphorus Magnesium Total Bilirubin AST ALT Alkaline Phosphatase Total Protein Albumin Globulin Albumin/Globulin Ratio Random Vancomycin 21.00 M.pneumoniae IgG Titer Critical Care Progress Note - Nutrition Nutrition: Nutrition Category Date Time Status NPO Diet [DIET] Diets 08/21/17 Dinner Active Assessment/Plan (1) Cardiac arrest Current Visit: Yes Status: Acute (2) Pneumonia Current Visit: Yes Status: Acute (3) History of DVT (deep vein thrombosis) Current Visit: Yes Status: Acute (4) CKD (chronic kidney disease) Current Visit: No Status: Chronic Comment: BUN/Cr 32/2.5 today Cr 2.0 at baseline (5) Acute on chronic renal failure Current Visit: Yes Status: Acute (6) CHF (congestive heart failure) Current Visit: Yes Status: Acute Comment: Patient's weight in the ER on 03/17 was 190 pounds and yesterday was 186.3 pounds on exam Lasix 40 mg PO daily Metoprolol 25 mg PO 1x/day Losartan 100 mg PO 1x/day Cardiology Dr. Cortés is following - help appreciated Attending/Attestation - Attestation I have personally seen and examined this patient.: Yes I have fully participated in the care of the patient.: Yes I have reviewed all pertinent clinical information: Yes Notes (Text): 09/14/17 16:37 Patient seen and examined in the intensive care unit. Case discussed with staff in the morning. Patient much more awake and responsive Taper off pressors as tolerated Continue antibiotics Surgical consult for debridement of decubiti
[2017-09-14 08:01] LABS: EOSINOPHIL 2 % (0-4); MYELOCYTE 1 % (0-0); NEUTROPHIL 86 % (50-75); TOTAL CELLS COUNTED 100
[2017-09-14] MEDS: Sevelamer Carb 0.8 gm/Packet GT SCH ×3 (08:02→17:39)
[2017-09-14] MEDS: Insulin Detemir 100 units/ml Vial (Levemir) SC SCH ×2 (09:15→21:37)
[2017-09-14] MEDS: Lactobacillus Acidophilus 500 MU Cap PO SCH ×2 (09:16→17:39)
[2017-09-14] MEDS: Tmp-Smz 200-40mg/5 ml Oral Sus(120 ml) PO SCH ×2 (09:20→21:37)
[2017-09-14] MEDS: Meropenem 500 MG in Sodium Chloride 0.9% 100 ML IVPB SCH ×3 (12:11→23:52)
--- NOTE | 2017-09-14 12:14 | CP.PCM.PN ---
Subjective - Date & Time of Evaluation Date of Evaluation: 09/14/17 Time of Evaluation: 11:45 - Subjective Subjective: Hospitalist Progress Note Patient was seen and examined at 11:45 AM 09/14/17 554 A. 77 year old male with extensive medical history (please see Assessment and Plans below) was admitted on 08/06/17 for evaluation of SOB and Chest Pain. He was planned for Cardiac Catheterization on 08/09/17. Patient then had Acute Respiratory Failure and had to be intubated and placed on vent. He is S/P Tracheostomy 08/22/17 and PEG Tube Placement 08/25/17. Please see details below. ROS are not possible as although patient is awake he is not answering (not shaking his head yes or no) Exam: - Head Exam Head Exam: NORMAL INSPECTION - Eye Exam Eye Exam: could not evaluate EOM due to patient's current status Pupil Exam: round, equal, and reactive to light - Respiratory Exam Respiratory Exam: Decreased Breath Sounds bilateral lower lung buchanan but limited due to lack of patient participation Additional comments: Trach Collar - Cardiovascular Exam Cardiovascular Exam: REGULAR RHYTHM, +S1, +S2 - GI/Abdominal Exam GI & Abdominal Exam: Distended, Soft, BSx4 much improved, could not palpate liver and spleen, PEG Tube Insertion Site LUQ without evidence of cellutlitis. absent: Firm, Guarding, Rigid, Tenderness, Rebound Additional comments: obese habitus, Peg Tube insertion site without signs of cellulitis - Extremities Exam Extremities Exam: Normal Capillary Refill, Pedal Edema. absent: Tenderness Additional comments: Prevalon boots b/l - Neurological Exam Additional comments: Could not be performed due to lack of patient participation - Skin Skin Exam: Unstageable Sacral Ulcer with NO surrounding signs of cellulitis. Shallow Ulcer Left outer ear. Right heal blister (1) Acute Respiratory Failure ARDS Cardiac Arrest Pulmonary Edema Nonstemi Assessment and Plan: * Code Blue on 08/10: asystole, cardiopulmonary resuscitative measures initiated , requiring 3 epis, bicarbonate, ROSC achieved and intubated and brought to the ICU for further management; Patient in the ICU from 08/10 until present. * Pulmonary: Dr Mena (Dr. Jeffers covering until 09/04/17)-->help appreciated * Cardiology: Dr. Cortés on board-->help appreciated * GI (Dr. Wills) on board-->help appreciated * S/P Tracheostomy 08/22 * S/P Peg tube placement 08/25 * s/p insertion of right posterior chest tube 08/19-->removed 08/24/17 * There was consideration for possible thoracentesis of left side pleural effusion, evaluated by IR, there is no fluid to drain per Dr. Gross * Chest xray (08/26): right arm PICC is seen with the tip of distal subclavian vein. PICC may be used * Per cardiology, * Restart Aspirin 81mg PO daily * Patient does not need Plavix at this time * Recommend for Eliquis 2.5mg PO BID for atrial flutter * 08/27: patient is pending LTAC, he went eventually need cardiac catheterization when he has stabilized. Held statin secondary to elevated LFTs. Discussed with Dr. Cortés, lowered Amiodarone 200mg PO daily * 08/28: patient is pending LTAC, he went eventually need cardiac catheterization when he has stabilized. Liver function tests improving * 08/29: Stem Assembler Nehla has sent request to insurance for authorization for LTAC-->pending * 09/06: pending social work/case management approval for LTAC * 09/07: pending social work/case management approval for LTAC * 09/08: Unable to get approval for LTAC; pending other options * 09/09: Transferred from step-down ICU to the floors * 09/13: Trasnferred back to ICU S/P Rapid Response for low blood pressure * 09/14: Currently on Acetylcysteine 20 % Neb Q6H and Duoneb Q6H (2) Abnormal Stress Test History of AICD History of Coronary Artery Disease Assessment and Plan: * Cardiology (Dr. Cortés) on board-->help appreciated * TSH: 1.16; T4: 1.53 * Echocardiogram (08/08/17): left ventricle systolic function is severely impaired. EF: 25-30%; global hypokinesis of left ventricle mild aortic regurgitation. Mitral regurgitation is moderate. Moderate-severe pulmonary hypertension * Plan was for cardiac catheterization; delayed due to acute renal failure; Attempted gentle hydration and mucomyst on 08/09 to optimize prior to cath * On 08/10, patient was in asystole, ACLS protocol, ROSC achieved, intubated and transfered to the ICU. Patient in acute pulmonary edema. * Patient hospitalized in the ICU since 08/10/17 to present. * Medications: * Aspirin 81mg PO daily * Plavix d/c by cardiology * Lopressor 50mg PO bid * d/c Crestor 10mg POqHS secondary to rise in LFTS 08/27--->monitor LFTs daily * ARB d/c secondary to acute renal failure * 08/27: patient is pending LTAC, he went eventually need cardiac catheterization when he has stabilized. Held statin secondary to elevated LFTs. Discussed with Dr. Cortés, lowered Amiodarone 200mg PO daily * 08/28: He will eventually need cardiac catheterization when he has stabilized. Liver function tests improving. Statin is on hold (3) Atrial flutter Assessment and Plan: * Cardiology (Dr. Cortés) on board-->help appreciated * Refractory to Lopressor/Cardizem IVP * Eliquis 2.5mg PO bid * Amiodarone bolus-->Amiodarine drip on 08/24-->converted to Amiodarone 200mg PO TID on 08/26 and this was decreased to 200 mg 1x/day due to increased LFTs * 08/27: Discussed with Dr. Cortés, will lower Amiodarone 200mg PO daily and monitor LFTs. Statin held and tylenol d/c * 08/29: patient is pending LTAC, he will eventually need cardiac catheterization when he has stabilized. Liver function tests improving. Statin is on hold due to the elevated LFTs * 08/30: Cardiology discontinued the Amiodarone * 09/07: Held eliquis; will need to resume * 09/09: Eliquis resumed, off Amiodarone Status: Acute (4) Acute on Chronic Systolic CHF exacerbation Assessment and Plan: * Cardiology (Dr. Cortés) on board-->help appreciated * Transferred to the ICU on 08/10 following cardiac arrest and intubation. * Echocardiogram (08/08/17): left ventricular systolic function is severely impaired. EF: 25-30%; global hypokinesis of left ventricle mild aortic regurgitation. Mitral regurgitation is moderate. Moderate-severe pulmonary hypertension * Medications: * Aspirin 81mg PO daily * Plavix d/c by cardiology * Lopressor 50mg PO bid * d/c Crestor 10mg POqHS on 08/27 secondary to rise in LFTs * ARB d/c secondary to acute renal failure Status: Acute (5) Leukocytosis Assessment and Plan: * Patient's white count downtrending * Pleural Fluid 08/19/17 did not show any growth * Blood cultures (08/26): no growth X5 days * UA and urine culture (08/27): Urine Culture showed Yeast Species. * Patient has elevated LFTs-->did not start anti-fungal in light of LFTs New: * 09/05/17 Blood: gram positive cocci-->pending speciation * 09/05/17 Blood: no growth after 4 days * 09/07/17 Legionella Culture: negative * 09/07/17 Mycobacteria: negative * 09/07/17 Sputum: Enterocloace Bacter; yeast * 09/07/17 Blood: negative X 48 hours * 09/07/17 Blood: negative X 48 hours * 09/06: stool culture pending; has not had diarrhea or bowel movement * 09/07: Dr. Zimmer (covering Dr. Lawrence) to see the patient given elevated procalcitonin * 09/13: F/U Repeat Blood and Urine Culture which were ordered as part of TRUST MANAGER ASSISTANT likely secondary to Septic Shock that required Levophed till 5 AM 09/14/17. * 09/14: Could this be secondary to the Septic Shock? Secondary to Osteomyelitis of the Sacrum? He is currently on the following medications that should cover these possibilities and based upon Sputum Culture 09/07/17 results : Vancomycin 1 gram MWF (09/09/17) and Meropenem 500 mg IV Q8H (09/13/17), Diflucan 200 mg PO 1x/day (09/13/17), Bactrim 10 mL PO Q12H (09/12/17) * Vancomycin Trough Random 09/14/17 is 21 and this is ok for now as we would like the Trough to be 10-20 considering the possibility of Sacral Osteomyelitis * F/U ESR 09/14/17 Status: Acute (6) Pneumonia Assessment and Plan: * Pulmonary (Dr. Mena) on board-->help appreciated; Dr. Jeffers covering while Dr. Mena away * Infectious Disease (Dr. Lawrence)-->help appreciated * Chest xray (08/26): right arm PICC is seen with the tip of distal subclavian vein. PICC may be used * Rapid A strep, Influenza A and B studies, Urine Legionella, Mycoplasma studies = Negative * Florastor 250mg PO bid * 08/07/17: +Strep Pneumoniae in the urine * Meropenem 500mg IV Q 8 hours (08/14/17 through 08/18/17) and Zosyn 2.25 mg IV Q6H (08/13/17 through 08/18/17) * Cefepime 1 gm IV Q24H: started on 08/19/17 and was discontinued by ID Dr. Lawrence on 08/30/17: monitor vitals and labs * s/p right posterior chest tube 08/19-08/24 * Sputum Culture 08/19/17 shows No growth * Pleural fluid 08/19/17: No growth * 09/07/17 Sputum: Enterocloace Bacter and Yeast Species: See Antibiotic treatment in previous Assessment and Plan Status: Acute (7) HTN (hypertension) Assessment and Plan: * Lopressor 50mg PO bid * Lisinopril 5mg PO daily Status: Chronic (8) CKD (chronic kidney disease) on Dialysis Assessment and Plan: * Dr. Miranda (nephrology) consulted on the case * Hx of CKD-->Started on dialysis 08/15/17 * Kurtis catheter placed and removed 08/22 * s/p Right Chest Permcath 08/22 * Patient is on dialysis --; oliguric * Phoslo 1334mg GT TID * Epoetin 10,000 unit IV MWF Status: Acute (9) Diabetes mellitus Assessment and Plan: * Accuchecks Q6H * HgbA1c 8.4 * Started peg feedings on 08/26/17 * Nepro-->50 ml/hour but this was held 09/13/17 due suspicion of Bowel Obstruction as NO bowel Movement since 09/07/17. This was restarted on after NO obstruction was observed on Obstruction Series 09/13/17 and after multiple bowel movement s/p Fleet Enema 09/13/17 (10) HLD (hyperlipidemia) Assessment and Plan: * 08/27: held Crestor 10 mg PO HS secondary to rise in LFTs * 08/29: Liver function tests improving; waiting to restart statin Status: Chronic (11) Anemia Assessment and Plan: * Heme-oncology (Dr. Giles bender) on board-->help appreciated * Likely iron deficiency anemia based on prior admissions * Ferritin 27.4, Iron 22, TIBC 322, % Saturation 7 * Ferric Sodium Gluconate 125mg IVPB daily (active 08/08-08/16) * Procrit 10,000 units M-W- * Monitor Hgb/Hct: stable Status: Chronic (12) History of DVT (deep vein thrombosis) Assessment and Plan: * Patient was previously on Eliquis for a prior history of DVT. * Repeat dopplers 08/09/17 are negative for DVT * Off Heparin Drip 08/17/17 * Started Eliquis 2.5mg PO BID for atrial flutter and history of DVT Status: Chronic (13) UTI Assessment and Plan: * Infectious disease (Dr. Lawrence) on board-->help appreciated * Exchange jaquez out and repeat urine cultures * Urine Culture 08/12/17 showed Gram Negative Rods: NO identification and NO sensitivities were performed * Meropenem 500mg IV Q 12hours (active since 08/14/17 through 08/18/17) to cover for UTI per ID * Repeat Urine Culture 08/18/17 shows NO growth * 08/25: reculture in light of leukocytosis * 08/27: pending urine studies * 08/30: Urine Culture 08/27/17 showed Yeast Species but no antifungal at that time secondary to recent history of Elevated LFTs Status: Chronic (14) Confusion; Alzheimer's Dementia Assessment and Plan: * Per daughter, patient has been getting bouts of confusion over the past year but appears at baseline. Patient has not seen formal neurology as outpatient per daughter. Per , prior to event, noted Alzheimers' disease dx one year ago * CT head w/o contrast (08/10/17):acute os subacute lacune infarct is not excluded in the left basal ganglia inferiorly with definitive chronic lacune identified in the right basal ganglia superiorly. No acute or subacute lobar brain infarction is appreciable by standard CT criteria. Mild age-related neuro degenerative changes are identifed. No acute intracranial hemorrhage or mass is identified throughout * 08/26: Off Sedation-->patient moves all extremities randomly but does not follow directions * 08/27: off sedation-->patient is very calm, smiles at his * 08/28: off sedation-->patient is very calm Status: Chronic (15) Unstageable Sacral Ulcer, Left Ear Auricle Ulcer, Right Heal Ulcer Assessment and Plan: * Wound care on board * WOUND CARE NOTE (08/26)-->Pt with a sacral unstageable being treated with medihoney. No changes to dimensions at this time. Also, pt favoring Left side of head and has developed a 1x1 serous filled blister on his left ear. Primary nurse placed duoderm on the ear. Wound care nurse left duoderm in place , and recommends leaving it on until it falls off on its own. Pt has been NPO for several days, new peg inserted yesterday. Will be starting glucerna tube feedings later today. Albumin 3.3 * Turn q 2 hours * medihoney on unstageable ulcer * duoderm on left ear aurical ulcer * Prevalon Boots for Right Heal Blister 09/13/17 * 09/02/17: examined with Wound Care Nurse Emeka Samuel and periphery of the Sacral Wound is pink with some bleeding however center is still black and therefore still unstageable. Continue spray with Cavelon followed by thick coating with MediHoney followed by covering with OptiFoam once a day. * 09/03/17: Change of sacral ulcer dressing was performed by me with assitance from Nurse Lyman * 09/04/17: 09/03/17: Change of sacral ulcer dressing was performed by me with assistance from ALEXANDRA Unger * Per wound care note (09/07): sacral ulcer is stable per wound care nurse * 09/14/17: Sacral Ulcer is unstageable and area of blackness fills entire circumference. General Surgery consult placed to see if debridement is necessary. Continue Cavelon [place] followed by paulina thick coating of MediHoney followed by covering with OptiFoam. Status: Acute (16) Elevated LFTs Assessment and Plan: * 08/27: Yina * Discussed with cardiology-->changed amiodarone 200mg PO tid to amiodaron 200mg PO daily * D/C tylenol * Held Statin * patient is also on Rocephin to cover for pneumonia * Will not start antifungal * 08/29: starting to down trending since change in amiodarone dose; awaiting to restart statin * 08/30: continues to trend down. Amiodarone was discontinued * 09/01: AST, ALT, Alk Phos still elevated but stable * 09/02: AST, ALT, Alk Phos still elevated but stable * 09/03: LFTs stable * 09/04: LFTs stable Status: Acute (17). Hx Constipation * Monitor bowel movement * Multiple bowel movements on 09/13/17 and 09/14/17 that are well formed s/p Fleet Enema on 09/13/17 (18). Prophylactic measure Assessment and Plan: * Pepcid 20mg PO daily * Start Eliquis 2.5mg PO BID * s/p peg placement 08/25 * s/p trachesostomy 08/22 * s/p Permcath placement 08/22 removal Kurtis catheter * s/p right posterior chest tube 08/19-->removed 08/24 * s/p Right Arm PICC 08/26 * (Jovita Serrano): -->number provided to the nurse- ->consented for peg placement; discussed about LTAC 08/26 * Spoke with Dr. Pickard, PMD regarding patient's hospitalization up until this point 08/2609/01/17: Dr. Cullen Barth spoke with the patient's [place] with the assistance of Nurse Beth on 3 tower (as multiple attempts of using InDemand indicated that all of the Marshallese translators were busy) and explained all of the patient's diagnosises. 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 Her ultimate wish is to take patient to [facility] where their children live. I explained to patient that I would not know how that would be coordinated but that the Social Workers/Furnace Combination Analyst at LTAC may be of assistance in this regard. I also informed her that I am not aware of any insurance company that would finance this request. She understands that the patient is awaiting insurance approval for LTAC. 09/01/17 and 09/02/17: Dr. Cullen Barth spoke with Central Office Trouble Shooter Demetria and we are still awaiting insurance authorization for LTAC placement. 09/05/17: Spoke with nehal director social, wean trials sent to LTAC pending approval no word yet regarding approval. Ordered for repeat cultures given uptrend in white count. 09/06/17: pending repeat cultures in light of elevated procalcitonin; ID recommended to reculture. Note: patients PICC lined had clogged ports. Red port remains clogged in spite of cath rafaela. Blue port improved after cath rafaela. Possible may need to remove line to r/o infected line. Strong suspicion due to patient's pneumonia given he has thick secretions. 09/07/17: Infectious disease. pending repeat cultures in light of elevated procalcitonin; Note: patients PICC lined had clogged ports. Red port remains clogged in spite of cath rafaela. Blue port improved after cath rafaela. Hip xray negative for acute fracture. There are no noted falls. 09/08/17: Patient denied for LTAC; awaiting for other options from case management/social work. Resident Daniel spoke with Dr. Cortés, patient be transferred under regular bed, when bed is available. Infectious disease on board; Patient started on IV Vancomycin in light of + blood culture. Pending chest xray. 09/09/17: Patient denied for LTAC; awaiting for other options from case management/social work with kamlesh verdin support. Patient started on IV Vancomycin MWF in light of + blood culture. Pending chest xray. F/U sputum with ID. f/u latest blood cultures. 09/13/17: Rapid response for low blood pressure and elevated WBC likely Septic Shock. Started on Levophed, added Meropenem to Vancomycin and 1 dose of Gentamycin given after speaking with ID. Ordered Obstruction Series as no bowel movement since 09/07/17. F/U Shock Panel. Discussed with ICU Resident to arrange for Change of Right Arm Midline line and Trach Collar. 09/14/17: Will await results of Blood Culture 09/13/17 to determine if the Right Arm Midline, Right Chest Perm Cath, and Trach Collar needs to be changed. Spoke with Central Office Trouble Shooter Demetria in ICU and patient information has been sent to [facility] (they accept patients on Trach) and she is awaiting to hear back from them before submitting approval request to insurance company. Cullen Barth D.O. Objective - Vital Signs/Intake and Output Vital Signs (last 24 hours): Temp Pulse Resp BP Pulse Ox 98.4 F 100 H 12 120/49 L 98 09/14/17 08:00 09/14/17 12:00 09/14/17 12:00 09/14/17 11:20 09/14/17 12:00 Intake and Output: 09/14/17 09/14/17 06:59 18:59 Intake Total 731.4 430 Output Total 150 0 Balance 581.4 430 - Medications Medications: Current Medications Acetylcysteine (Acetylcysteine 20%) 4 ml INH RQ6 [facility] Last Admin: 09/14/17 07:54 Dose: 4 ml Albuterol/Ipratropium (Duoneb 3 Mg/0.5 Mg (3 Ml) Ud) 3 ml INH RQ6 [facility] Last Admin: 09/14/17 07:54 Dose: 3 ml Apixaban (Eliquis) 2.5 mg PO BID [facility] Last Admin: 09/14/17 09:16 Dose: 2.5 mg Aspirin (Aspirin Chewable) 81 mg PO DAILY [facility] Last Admin: 09/14/17 09:16 Dose: 81 mg Epoetin Chencho (Procrit) 10,000 unit IV MWF [facility] Last Admin: 09/12/17 16:23 Dose: 10,000 unit Famotidine (Pepcid) 20 mg PO DAILY [facility] Last Admin: 09/14/17 09:16 Dose: 20 mg Fluconazole (Diflucan) 200 mg PO DAILY [facility] Last Admin: 09/14/17 09:16 Dose: 200 mg Vancomycin HCl 1 gm/ Sodium (Chloride) 250 mls @ 166.7 mls/hr IVPB MWF [facility] Last Admin: 09/12/17 21:57 Dose: 166.7 mls/hr Norepinephrine Bitartrate 4 mg (/ Dextrose) 254 mls @ 15.24 mls/hr IV .[id number] PRN; Protocol; 4 MCG/MIN PRN Reason: TITRATE PER MD ORDER Last Admin: 09/13/17 18:49 Dose: 4 mcg/min, 15.24 mls/hr Meropenem 500 mg/ Sodium (Chloride) 100 mls @ 200 mls/hr IVPB Q12H [facility] Last Admin: 09/14/17 00:00 Dose: 200 mls/hr Insulin Aspart (Novolog) 0 unit SC Q6 [facility] PRN Reason: Protocol Last Admin: 09/14/17 11:52 Dose: 6 unit Insulin Detemir (Levemir) 43 unit SC Q12 [facility] Last Admin: 09/14/17 09:15 Dose: 43 unit Lactobacillus Acidophilus (Bacid Acidophilus) 1 cap PO BID [facility] Last Admin: 09/14/17 09:16 Dose: 1 cap Metoprolol Tartrate (Lopressor) 50 mg PO BID [facility] Last Admin: 09/14/17 09:00 Dose: Not Given Rosuvastatin Calcium (Crestor) 10 mg PO HS [facility] Last Admin: 08/26/17 22:41 Dose: 10 mg Sevelamer Carbonate (Renvela) 1.6 gm GT TIDCC [facility] Last Admin: 09/14/17 11:17 Dose: 1.6 gm Trimethoprim/Sulfamethoxazole (Sulfatrim Pediatric Susp) 10 ml PO Q12 [facility] Last Admin: 09/14/17 09:20 Dose: 10 ml - Labs Labs: 09/14/17 06:14 09/14/17 06:14 PT 13.9 SECONDS (9.7-12.2) H 08/24/17 06:08 INR 1.2 08/24/17 06:08 APTT 55 SECONDS (21-34) H D 08/17/17 06:12
--- NOTE | 2017-09-14 12:40 | CP.PCM.PN ---
Subjective - Date & Time of Evaluation Date of Evaluation: 09/14/17 Time of Evaluation: 12:37 - Subjective Subjective: More alert; off pressors now BP better On trach collar; PEG feeds 50 ml qh for dialysis today Objective - Vital Signs/Intake and Output Vital Signs (last 24 hours): Temp Pulse Resp BP Pulse Ox 98.4 F 100 H 12 120/49 L 98 09/14/17 08:00 09/14/17 12:00 09/14/17 12:00 09/14/17 11:20 09/14/17 12:00 Intake and Output: 09/14/17 09/14/17 06:59 18:59 Intake Total 731.4 430 Output Total 150 0 Balance 581.4 430 - Medications Medications: Current Medications Acetylcysteine (Acetylcysteine 20%) 4 ml INH RQ6 [facility] Last Admin: 09/14/17 07:54 Dose: 4 ml Albuterol/Ipratropium (Duoneb 3 Mg/0.5 Mg (3 Ml) Ud) 3 ml INH RQ6 [facility] Last Admin: 09/14/17 07:54 Dose: 3 ml Apixaban (Eliquis) 2.5 mg PO BID [facility] Last Admin: 09/14/17 09:16 Dose: 2.5 mg Aspirin (Aspirin Chewable) 81 mg PO DAILY [facility] Last Admin: 09/14/17 09:16 Dose: 81 mg Epoetin Chencho (Procrit) 10,000 unit IV [facility] Last Admin: 09/12/17 16:23 Dose: 10,000 unit Famotidine (Pepcid) 20 mg PO DAILY [facility] Last Admin: 09/14/17 09:16 Dose: 20 mg Fluconazole (Diflucan) 200 mg PO DAILY [facility] Last Admin: 09/14/17 09:16 Dose: 200 mg Vancomycin HCl 1 gm/ Sodium (Chloride) 250 mls @ 166.7 mls/hr IVPB [facility] [place] Last Admin: 09/12/17 21:57 Dose: 166.7 mls/hr Norepinephrine Bitartrate 4 mg (/ Dextrose) 254 mls @ 15.24 mls/hr IV .[id number] PRN; Protocol; 4 MCG/MIN PRN Reason: TITRATE PER MD ORDER Last Admin: 09/13/17 18:49 Dose: 4 mcg/min, 15.24 mls/hr Meropenem 500 mg/ Sodium (Chloride) 100 mls @ 200 mls/hr IVPB Q12H [facility] Last Admin: 09/14/17 12:11 Dose: 200 mls/hr Insulin Aspart (Novolog) 0 unit SC Q6 [facility] PRN Reason: Protocol Last Admin: 09/14/17 11:52 Dose: 6 unit Insulin Detemir (Levemir) 43 unit SC Q12 [facility] Last Admin: 09/14/17 09:15 Dose: 43 unit Lactobacillus Acidophilus (Bacid Acidophilus) 1 cap PO BID [facility] Last Admin: 09/14/17 09:16 Dose: 1 cap Metoprolol Tartrate (Lopressor) 50 mg PO BID [facility] Last Admin: 09/14/17 09:00 Dose: Not Given Rosuvastatin Calcium (Crestor) 10 mg PO HS [facility] Last Admin: 08/26/17 22:41 Dose: 10 mg Sevelamer Carbonate (Renvela) 1.6 gm GT TIDCC [facility] Last Admin: 09/14/17 11:17 Dose: 1.6 gm Trimethoprim/Sulfamethoxazole (Sulfatrim Pediatric Susp) 10 ml PO Q12 [facility] Last Admin: 09/14/17 09:20 Dose: 10 ml - Labs Labs: 09/14/17 06:14 09/14/17 06:14 PT 13.9 SECONDS (9.7-12.2) H 08/24/17 06:08 INR 1.2 08/24/17 06:08 APTT 55 SECONDS (21-34) H D 08/17/17 06:12 - Constitutional Appears: No Acute Distress, Confused, Chronically Ill - Head Exam Head Exam: ATRAUMATIC, NORMAL INSPECTION - Eye Exam Eye Exam: EOMI, Normal appearance - Neck Exam Neck Exam: Normal Inspection. absent: Tenderness - Respiratory Exam Respiratory Exam: Clear to Ausculation Bilateral, NORMAL BREATHING PATTERN - Cardiovascular Exam Cardiovascular Exam: REGULAR RHYTHM, +S1 - GI/Abdominal Exam GI & Abdominal Exam: Tenderness. absent: Soft - Extremities Exam Extremities Exam: Normal Inspection. absent: Tenderness - Neurological Exam Neurological Exam: Altered, Motor Sensory Deficit - Skin Skin Exam: Dry, Warm Assessment and Plan (1) Acute on chronic renal failure Status: Acute (2) CAD (coronary artery disease) Status: Chronic (3) CHF exacerbation Status: Chronic (4) Type 2 diabetes mellitus with diabetic nephropathy Status: Acute (5) CKD stage 4 due to type 2 diabetes mellitus Status: Acute (6) Cardiorenal disease Status: Acute (7) ESRD (end stage renal disease) Status: Acute - Assessment and Plan (Free Text) Plan: continue dialysis MWF monitor BP try to decrease BUN with larger dialyzer
--- NOTE | 2017-09-14 12:49 | CP.PCM.PN ---
Subjective - Date & Time of Evaluation Date of Evaluation: 09/14/17 Time of Evaluation: 07:00 - Subjective Subjective: Consult Note for General Surgery for Dr. Bay Consulted for: unstageable sacral ulcer HPI: Patient is a 77 year old male with PMHx significant for CAD with prior stent placement, HTN, HLD, DM 2, CKD, Anemia, permanent pacemaker, prior DVT and chronic lower extremity edema who presented to the ED on 08/06/17 with complaints of chest pain and shortness of breath with ambulation. Patient has had an extensive and complicated hospital course since his admission. Patient was transferred to ICU on 08/10 from med/surg due to a code blue as the patient was going to CT. Patient is currently with a tracheostomy due to respiratory distress secondary to cardiac arrest. Patient was transferred to telemetery on 08/29/17. Patient was transferred back to the ICU on 09/14 due to [employer] for hypotension (84/48) and started on Levophed at 4mcg/min. Surgery consulted for an unstageable sacral ulcer. ROS could not be obtained due to patient's current status. Patient is awake, but does not respond to questions. (As per admission): PMD: Dr Pickard PMHx: CAD with prior stent placement, HTN, HLD, DM 2, CKD, Anemia, permanent pacemaker, prior DVT and chronic lower extremity edema PSHx: abdominal hernia repair, pacemaker placement, prior cardiac stent placement, Prior Cardiac cath by Dr. Cortés FHx: Mom with DM and vaginal CA, Dad with from [place] at 68. Medications: Please refer to chart Allergies: no known drug allergies Social Hx: denies tobacco use; only drank alcohol sparingly when he was very young; denies illicit drug use. Objective - Vital Signs/Intake and Output Vital Signs (last 24 hours): Temp Pulse Resp BP Pulse Ox 98.4 F 100 H 12 120/49 L 98 09/14/17 08:00 09/14/17 12:00 09/14/17 12:00 09/14/17 11:20 09/14/17 12:00 Intake and Output: 09/14/17 09/14/17 06:59 18:59 Intake Total 731.4 430 Output Total 150 0 Balance 581.4 430 - Medications Medications: Current Medications Acetylcysteine (Acetylcysteine 20%) 4 ml INH RQ6 [facility] Last Admin: 09/14/17 07:54 Dose: 4 ml Albuterol/Ipratropium (Duoneb 3 Mg/0.5 Mg (3 Ml) Ud) 3 ml INH RQ6 [facility] Last Admin: 09/14/17 07:54 Dose: 3 ml Apixaban (Eliquis) 2.5 mg PO BID [facility] Last Admin: 09/14/17 09:16 Dose: 2.5 mg Aspirin (Aspirin Chewable) 81 mg PO DAILY [facility] Last Admin: 09/14/17 09:16 Dose: 81 mg Epoetin Chencho (Procrit) 10,000 unit IV MWF [facility] Last Admin: 09/12/17 16:23 Dose: 10,000 unit Famotidine (Pepcid) 20 mg PO DAILY [facility] Last Admin: 09/14/17 09:16 Dose: 20 mg Fluconazole (Diflucan) 200 mg PO DAILY [facility] Last Admin: 09/14/17 09:16 Dose: 200 mg Vancomycin HCl 1 gm/ Sodium (Chloride) 250 mls @ 166.7 mls/hr IVPB MWF [facility] Last Admin: 09/12/17 21:57 Dose: 166.7 mls/hr Norepinephrine Bitartrate 4 mg (/ Dextrose) 254 mls @ 15.24 mls/hr IV .[id number] PRN; Protocol; 4 MCG/MIN PRN Reason: TITRATE PER MD ORDER Last Admin: 09/13/17 18:49 Dose: 4 mcg/min, 15.24 mls/hr Meropenem 500 mg/ Sodium (Chloride) 100 mls @ 200 mls/hr IVPB Q12H [facility] Last Admin: 09/14/17 12:11 Dose: 200 mls/hr Insulin Aspart (Novolog) 0 unit SC Q6 [facility] PRN Reason: Protocol Last Admin: 09/14/17 11:52 Dose: 6 unit Insulin Detemir (Levemir) 43 unit SC Q12 [facility] Last Admin: 09/14/17 09:15 Dose: 43 unit Lactobacillus Acidophilus (Bacid Acidophilus) 1 cap PO BID [facility] Last Admin: 09/14/17 09:16 Dose: 1 cap Metoprolol Tartrate (Lopressor) 50 mg PO BID [facility] Last Admin: 09/14/17 09:00 Dose: Not Given Rosuvastatin Calcium (Crestor) 10 mg PO HS [facility] Last Admin: 08/26/17 22:41 Dose: 10 mg Sevelamer Carbonate (Renvela) 1.6 gm GT TIDCC [facility] Last Admin: 09/14/17 11:17 Dose: 1.6 gm Trimethoprim/Sulfamethoxazole (Sulfatrim Pediatric Susp) 10 ml PO Q12 [facility] Last Admin: 09/14/17 09:20 Dose: 10 ml - Labs Labs: 09/14/17 06:14 09/14/17 06:14 PT 13.9 SECONDS (9.7-12.2) H 08/24/17 06:08 INR 1.2 08/24/17 06:08 APTT 55 SECONDS (21-34) H D 08/17/17 06:12 - Constitutional Appears: Non-toxic, No Acute Distress - Head Exam Head Exam: ATRAUMATIC, NORMAL INSPECTION, NORMOCEPHALIC - Eye Exam Eye Exam: EOMI, Normal appearance - Neck Exam Additional comments: trach in place - Respiratory Exam Respiratory Exam: Decreased Breath Sounds - Cardiovascular Exam Cardiovascular Exam: REGULAR RHYTHM, +S1, +S2 - GI/Abdominal Exam GI & Abdominal Exam: Soft Additional comments: peg tube intact - Extremities Exam Additional comments: prevalon boots on b/l - Back Exam Additional comments: sacral unstageable ulcer with eschar, necrotic tissue ~10cm x 10cm - Neurological Exam Neurological Exam: Awake. absent: Alert, Oriented x3 - Skin Skin Exam: Warm Additional comments: unstageable sacral ulcer, shallow ulcer left outer ear, right heal blister Assessment and Plan - Assessment and Plan (Free Text) Assessment: 77 y/o M with unstageable sacral ulcer Plan: -possible debridement -continue medical management as per ICU -futher recommendations as per Dr. Bay
[2017-09-14] MEDS: Epoetin Alfa 10,000 unit/ml Dialysis IV SCH (15:15)
[2017-09-15] MEDS: (Novolog) Insulin Aspart, Recombinant 100 u/ml 10 ml vial SC SCH ×4 (00:26→17:51)
[2017-09-15] MEDS: Acetylcysteine 20% Inhal Soln (4ml) INH SCH ×4 (01:17→19:39)
[2017-09-15] MEDS: Albuterol-Ipratrop 3 mg / 0.5 (3 ml) UD INH SCH ×4 (01:17→19:39)
[2017-09-15 06:34] LABS: BASO # 0.1 K/uL (0.0-0.2); BASO % 0.6 % (0.0-2.0); EOS # 0.3 K/uL (0.0-0.7); EOS % 2.4 % (0.0-4.0); HEMATOCRIT 26.4 % (35.0-51.0); LYMPH # 2.1 K/uL (1.0-4.3); LYMPH % 15.4 % (20.0-40.0); MEAN CELL VOLUME 76.6 fL (80.0-94.0); MEAN CORPUSCULAR HEMOGLOBIN 24.7 pg (27.0-31.0); MEAN CORPUSCULAR HGB CONC 32.2 g/dL (33.0-37.0); MONO # 0.9 K/uL (0.0-0.8); MONO % 6.5 % (0.0-10.0); RED CELL DISTRIBUTION WIDTH 23.1 % (11.5-14.5); WHITE BLOOD COUNT 13.9 K/uL (4.8-10.8)
[2017-09-15 06:54] LABS: POTASSIUM 3.4 mmol/L (3.6-5.2)
[2017-09-15 06:56] LABS: BILIRUBIN,TOTAL 0.3 mg/dL (0.2-1.3)
[2017-09-15 06:57] LABS: ALB/GLOB RATIO 0.6 (1.0-2.1); CALCIUM 8.8 mg/dl (8.6-10.4); PHOSPHOROUS 2.4 mg/dL (2.5-4.5); TOTAL PROTEIN 7.2 g/dL (6.3-8.3)
[2017-09-15 06:58] LABS: MAGNESIUM 2.2 mg/dL (1.6-2.3)
[2017-09-15] MEDS: Sevelamer Carb 0.8 gm/Packet GT SCH ×3 (07:31→17:43)
--- NOTE | 2017-09-15 09:12 | CP.PCM.PN ---
Subjective - Date & Time of Evaluation Date of Evaluation: 09/15/17 Time of Evaluation: 09:09 - Subjective Subjective: s/p dialysis 09/14- UF 1000ml Alert with trach collar On low dose levophed mainainted with PEG feeds 50 ml qh awaiting LTC transfer when BP stabilizes Objective - Vital Signs/Intake and Output Vital Signs (last 24 hours): Temp Pulse Resp BP Pulse Ox 97.7 F 107 H 12 131/45 L 100 09/15/17 08:00 09/15/17 08:11 09/15/17 08:11 09/15/17 08:11 09/15/17 08:11 Intake and Output: 09/15/17 09/15/17 06:59 18:59 Intake Total 1100 200 Output Total 170 Balance 930 200 - Medications Medications: Current Medications Acetylcysteine (Acetylcysteine 20%) 4 ml INH RQ6 [facility] Last Admin: 09/15/17 08:41 Dose: 4 ml Albuterol/Ipratropium (Duoneb 3 Mg/0.5 Mg (3 Ml) Ud) 3 ml INH RQ6 [facility] Last Admin: 09/15/17 08:41 Dose: 3 ml Apixaban (Eliquis) 2.5 mg PO BID [facility] Last Admin: 09/14/17 17:39 Dose: 2.5 mg Aspirin (Aspirin Chewable) 81 mg PO DAILY [facility] Last Admin: 09/14/17 09:16 Dose: 81 mg Epoetin Chencho (Procrit) [facility] Last Admin: 09/14/17 15:15 Dose: 10,000 unit Famotidine (Pepcid) 20 mg PO DAILY [facility] Last Admin: 09/14/17 09:16 Dose: 20 mg Fluconazole (Diflucan) 200 mg PO DAILY [facility] Last Admin: 09/14/17 09:16 Dose: 200 mg Vancomycin HCl 1 gm/ Sodium (Chloride) 250 mls @ 166.7 mls/hr IVPB MWF [facility] Last Admin: 09/14/17 17:40 Dose: 166.7 mls/hr Norepinephrine Bitartrate 4 mg (/ Dextrose) 254 mls @ 15.24 mls/hr IV .[id number] PRN; Protocol; 4 MCG/MIN PRN Reason: TITRATE PER MD ORDER Last Titration: 09/14/17 18:30 Dose: 0 mcg/min, 0 mls/hr Meropenem 500 mg/ Sodium (Chloride) 100 mls @ 200 mls/hr IVPB Q12H [facility] Last Admin: 09/14/17 23:52 Dose: 200 mls/hr Insulin Aspart (Novolog) 0 unit SC Q6 [facility] PRN Reason: Protocol Last Admin: 09/15/17 06:15 Dose: 2 unit Insulin Detemir (Levemir) 43 unit SC Q12 [facility] Last Admin: 09/14/17 21:37 Dose: 43 unit Lactobacillus Acidophilus (Bacid Acidophilus) 1 cap PO BID [facility] Last Admin: 09/14/17 17:39 Dose: 1 cap Metoprolol Tartrate (Lopressor) 50 mg PO BID [facility] Last Admin: 09/14/17 17:53 Dose: Not Given Rosuvastatin Calcium (Crestor) 10 mg PO HS [facility] Last Admin: 08/26/17 22:41 Dose: 10 mg Sevelamer Carbonate (Renvela) 1.6 gm GT TIDCC [facility] Last Admin: 09/15/17 07:31 Dose: 1.6 gm Trimethoprim/Sulfamethoxazole (Sulfatrim Pediatric Susp) 10 ml PO Q12 [facility] Last Admin: 09/14/17 21:37 Dose: 10 ml - Labs Labs: 09/15/17 06:23 09/15/17 06:23 PT 13.9 SECONDS (9.7-12.2) H 08/24/17 06:08 INR 1.2 08/24/17 06:08 APTT 55 SECONDS (21-34) H D 08/17/17 06:12 - Constitutional Appears: No Acute Distress, Chronically Ill - Head Exam Head Exam: ATRAUMATIC, NORMAL INSPECTION - Eye Exam Eye Exam: EOMI, Normal appearance - Neck Exam Neck Exam: Normal Inspection. absent: Tenderness - Respiratory Exam Respiratory Exam: Clear to Ausculation Bilateral, Respiratory Distress - Cardiovascular Exam Cardiovascular Exam: REGULAR RHYTHM, +S1 - GI/Abdominal Exam GI & Abdominal Exam: Soft. absent: Tenderness - Extremities Exam Extremities Exam: Normal Inspection. absent: Tenderness - Neurological Exam Neurological Exam: Altered, CN II-XII Intact - Skin Skin Exam: Dry, Warm Assessment and Plan (1) Acute on chronic renal failure Status: Acute (2) CAD (coronary artery disease) Status: Chronic (3) CHF exacerbation Status: Chronic (4) Type 2 diabetes mellitus with diabetic nephropathy Status: Acute (5) CKD stage 4 due to type 2 diabetes mellitus Status: Acute (6) Cardiorenal disease Status: Acute (7) ESRD (end stage renal disease) Status: Acute - Assessment and Plan (Free Text) Plan: Dialysis MWF BP support eventual LTC transfer
--- NOTE | 2017-09-15 09:15 | CP.CCUPN ---
<Diaz Streeter - Last Filed: 09/15/17 16:22> CCU Objective - Vital Signs / Intake & Output Vital Signs (Last 4 hours): Vital Signs Pulse Resp BP Pulse Ox 09/15/17 15:11 102 H 17 126/40 L 100 09/15/17 15:00 101 H 20 97 09/15/17 14:13 102/20 L 09/15/17 14:00 112 H 10 L 100 09/15/17 13:11 93 H 29 H 121/42 L 95 09/15/17 13:00 94 H 30 H 96 Intake and Output (Last 8hrs): Intake & Output 09/15/17 09/15/17 09/15/17 06:59 14:59 22:59 Intake Total 550 650 50 Output Total 20 Balance 530 650 50 Weight 176 lb Intake: Intake, IV Amount 100 100 Right Medial Port 100 100 Tube Feeding 450 350 50 Other 200 Output: Urine 20 Straight 20 - Medications Active Medications: Active Medications Generic Name Dose Route Start Last Admin Trade Name Freq PRN Reason Stop Dose Admin Acetylcysteine 4 ml 09/06/17 14:00 09/15/17 14:41 Acetylcysteine 20% INH 4 ml RQ6 LUISF ERNANDO Administration Albuterol/Ipratropium 3 ml 09/01/17 02:00 09/15/17 14:41 Duoneb 3 Mg/0.5 Mg (3 Ml) Ud INH 3 ml RQ6 LUIS FERNANDO Administration Apixaban 2.5 mg 08/27/17 12:00 09/15/17 10:02 Eliquis PO 2.5 mg BID LUIS FERNANDO Administration Aspirin 81 mg 08/26/17 14:00 09/15/17 10:02 Aspirin Chewable PO 81 mg DAILY LUIS FERNANDO Administration Epoetin Chencho 10,000 unit 09/09/17 09:00 09/14/17 15:15 Procrit IV 10,000 unit MWF LUIS FERNANDO Administration Famotidine 20 mg 08/09/17 10:00 09/15/17 10:03 Pepcid PO 20 mg DAILY LUIS FERNANDO Administration Fluconazole 200 mg 09/13/17 10:00 09/15/17 11:53 Diflucan PO 200 mg DAILY LUIS FERNANDO Administration Vancomycin HCl 1 gm/ Sodium 250 mls @ 166.7 mls/hr 09/09/17 09:00 09/14/17 17 :40 Chloride IVPB 166.7 mls/hr MWF LUIS FERNANDO Administration Norepinephrine Bitartrate 4 mg 254 mls @ 15.24 mls/hr 09/13/17 11:11 18:30 / Dextrose IV 0 mcg/min .[id number] PRN 0 mls/hr TITRATE PER MD ORDER Titration Protocol 4 MCG/MIN Meropenem 500 mg/ Sodium 100 mls @ 200 mls/hr 09/13/17 12:00 09/15/17 11:53 Chloride IVPB 200 mls/hr Q12H LUIS FERNANDO Administration Insulin Aspart 0 unit 09/14/17 12:00 09/15/17 12:02 Novolog SC 2 unit Q6 LUIS FERNANDO Administration Protocol Insulin Detemir 43 unit 09/03/17 10:00 09/15/17 10:06 Levemir SC 43 unit Q12 LUIS FERNANDO Administration Lactobacillus Acidophilus 1 cap 08/13/17 18:00 09/15/17 10:02 Bacid Acidophilus PO 1 cap BID LUIS FERNANDO Administration Metoprolol Tartrate 50 mg 09/10/17 12:03 09/15/17 10:03 Lopressor PO 50 mg BID LUIS FERNANDO Administration Rosuvastatin Calcium 10 mg 08/06/17 22:00 08/26/17 22:41 Crestor PO 10 mg HS LUIS FERNANDO Administration Sevelamer Carbonate 1.6 gm 09/12/17 17:00 09/15/17 12:00 Renvela GT 1.6 gm TIDCC LUIS FERNANDO Administration Trimethoprim/Sulfamethoxazole 10 ml 09/12/17 22:00 09/15/17 10:03 Sulfatrim Pediatric Susp PO 10 ml Q12 LUIS FERNANDO Administration - Patient Studies Lab Studies: Microbiology Studies 09/13/17 12:30 Blood Culture - Preliminary Blood-Venous NO GROWTH AFTER 48 HOURS 09/13/17 13:00 Blood Culture - Preliminary Blood-Venous NO GROWTH AFTER 48 HOURS 09/13/17 17:35 Urine Culture - Final Urine,Catheterized Yeast Species 09/14/17 21:55 Gram Stain - Final Sacral Wound Culture - Preliminary Gram Positive Cocci Yeast Species 09/07/17 04:00 Mycobacterial Culture - Preliminary Other: Please Indicate Lab Studies 09/15/17 09/15/17 09/15/17 Range/Units 11:56 06:23 06:23 WBC 13.9 H (4.8-10.8) K/uL RBC 3.45 L (4.40-5.90) Mil/uL Hgb 8.5 L (12.0-18.0) g/dL Hct 26.4 L (35.0-51.0) % MCV 76.6 L (80.0-94.0) fL MCH 24.7 L (27.0-31.0) pg MCHC 32.2 L (33.0-37.0) g/dL RDW 23.1 H (11.5-14.5) % Plt Count 425 H (130-400) K/uL MPV 8.0 (7.2-11.7) fL Neut % (Auto) 75.1 H (50.0-75.0) % Lymph % (Auto) 15.4 L (20.0-40.0) % [place] % (Auto) 6.5 (0.0-10.0) % Eos % (Auto) 2.4 (0.0-4.0) % Baso % (Auto) 0.6 (0.0-2.0) % Neut # 10.5 H (1.8-7.0) K/uL Lymph # 2.1 (1.0-4.3) K/uL [place] # 0.9 H (0.0-0.8) K/uL Eos # 0.3 (0.0-0.7) K/uL Baso # 0.1 (0.0-0.2) K/uL Sodium 134 (132-148) mmol/L Potassium 3.4 L (3.6-5.2) mmol/L Chloride 94 L (98-107) mmol/L Carbon Dioxide 28 (22-30) mmol/L Anion Gap 15 (10-20) BUN 54 H (9-20) mg/dL Creatinine 3.3 H (0.8-1.5) mg/dL Est GFR ( Amer) 22 Est GFR (Non-Af Amer) 18 POC Glucose (mg/dL) 197 H (65-110) mg/dL Random Glucose 129 H (75-110) mg/dL Calcium 8.8 (8.6-10.4) mg/dl Phosphorus 2.4 L (2.5-4.5) mg/dL Magnesium 2.2 (1.6-2.3) mg/dL Total Bilirubin 0.3 (0.2-1.3) mg/dL AST 57 (17-59) U/L ALT 56 (21-72) U/L Alkaline Phosphatase 158 H (38-126) U/L Total Protein 7.2 (6.3-8.3) g/dL Albumin 2.8 L (3.5-5.0) g/dL Globulin 4.4 H (2.2-3.9) gm/dL Albumin/Globulin Ratio 0.6 L (1.0-2.1) 09/15/17 09/15/17 09/14/17 Range/Units 05:13 00:03 17:48 WBC (4.8-10.8) K/uL RBC (4.40-5.90) Mil/uL Hgb (12.0-18.0) g/dL Hct (35.0-51.0) % MCV (80.0-94.0) fL MCH (27.0-31.0) pg MCHC (33.0-37.0) g/dL RDW (11.5-14.5) % Plt Count (130-400) K/uL MPV (7.2-11.7) fL Neut % (Auto) (50.0-75.0) % Lymph % (Auto) (20.0-40.0) % [place] % (Auto) (0.0-10.0) % Eos % (Auto) (0.0-4.0) % Baso % (Auto) (0.0-2.0) % Neut # (1.8-7.0) K/uL Lymph # (1.0-4.3) K/uL [place] # (0.0-0.8) K/uL Eos # (0.0-0.7) K/uL Baso # (0.0-0.2) K/uL Sodium (132-148) mmol/L Potassium (3.6-5.2) mmol/L Chloride (98-107) mmol/L Carbon Dioxide (22-30) mmol/L Anion Gap (10-20) BUN (9-20) mg/dL Creatinine (0.8-1.5) mg/dL Est GFR ( Amer) Est GFR (Non-Af Amer) POC Glucose (mg/dL) 162 H 212 H 158 H (65-110) mg/dL Random Glucose (75-110) mg/dL Calcium (8.6-10.4) mg/dl Phosphorus (2.5-4.5) mg/dL Magnesium (1.6-2.3) mg/dL Total Bilirubin (0.2-1.3) mg/dL AST (17-59) U/L ALT (21-72) U/L Alkaline Phosphatase (38-126) U/L Total Protein (6.3-8.3) g/dL Albumin (3.5-5.0) g/dL Globulin (2.2-3.9) gm/dL Albumin/Globulin Ratio (1.0-2.1) Laboratory Results - last 24 hr 09/14/17 09/15/17 09/15/17 17:48 00:03 05:13 WBC RBC Hgb Hct MCV MCH MCHC RDW Plt Count MPV Neut % (Auto) Lymph % (Auto) [place] % (Auto) Eos % (Auto) Baso % (Auto) Neut # Lymph # [place] # Eos # Baso # Sodium Potassium Chloride Carbon Dioxide Anion Gap BUN Creatinine Est GFR ( Amer) Est GFR (Non-Af Amer) POC Glucose (mg/dL) 158 H 212 H 162 H Random Glucose Calcium Phosphorus Magnesium Total Bilirubin AST ALT Alkaline Phosphatase Total Protein Albumin Globulin Albumin/Globulin Ratio 09/15/17 09/15/17 09/15/17 06:23 06:23 11:56 WBC 13.9 H RBC 3.45 L Hgb 8.5 L Hct 26.4 L MCV 76.6 L MCH 24.7 L MCHC 32.2 L RDW 23.1 H Plt Count 425 H MPV 8.0 Neut % (Auto) 75.1 H Lymph % (Auto) 15.4 L [place] % (Auto) 6.5 Eos % (Auto) 2.4 Baso % (Auto) 0.6 Neut # 10.5 H Lymph # 2.1 [place] # 0.9 H Eos # 0.3 Baso # 0.1 Sodium 134 Potassium 3.4 L Chloride 94 L Carbon Dioxide 28 Anion Gap 15 BUN 54 H Creatinine 3.3 H Est GFR ( Amer) 22 Est GFR (Non-Af Amer) 18 POC Glucose (mg/dL) 197 H Random Glucose 129 H Calcium 8.8 Phosphorus 2.4 L Magnesium 2.2 Total Bilirubin 0.3 AST 57 ALT 56 Alkaline Phosphatase 158 H Total Protein 7.2 Albumin 2.8 L Globulin 4.4 H Albumin/Globulin Ratio 0.6 L Critical Care Progress Note - Nutrition Nutrition: Nutrition Category Date Time Status NPO Diet [DIET] Diets 08/21/17 Dinner Active Assessment/Plan (1) ARDS (adult respiratory distress syndrome) Current Visit: Yes Status: Acute Attending/Attestation - Attestation I have personally seen and examined this patient.: Yes I have fully participated in the care of the patient.: Yes I have reviewed all pertinent clinical information: Yes Notes (Text): 09/15/17 16:22 I have seen and examined the patient. Medical records, lab studies, and imaging were reviewed by me and a management plan was formulated on multidisciplinary rounds with resident Dr. Oliver. I agree with their above documented assessment and plan. Most likely source of sepsis is sacral ulcer, underwent debridement today. Swapped out trach to fenestrated today. Patient will be a candidate for Passy- Kirti valve. Patient needs aggressive rehab, but resources in hospital are limited. Will titrate down to nasal canula. Critical Care Time 35 minutes. Multi-disciplinary rounds were performed with house staff, nursing, speech therapy, respiratory therapy, pharmacy and nutrition with integrated input from the primary team/attending and other consulting services. The documented time is cumulative and includes review of patient data/exams/labs/chart review and examination of the patient on rounds and throughout the day; time is exclusive of any procedures or teaching time. <Chintan Oliver E - Last Filed: 09/15/17 18:13> CCU Subjective - Physician Review Subjective (Free Text): Patient was seen and examined at bedside. Patient was alert with extraocular movement and sitting in a chair. Patient is with tracheostomy and PEG tube. As per nursing, there were no acute issues overnight. Patient mouthed greetings quietly. Unable to evaluate adequate ROS as patient is not adequately answering verbally or utilizing head motion to nod " yes or no". CCU Objective - Vital Signs / Intake & Output Vital Signs (Last 4 hours): Vital Signs Temp Pulse Resp BP Pulse Ox 09/15/17 08:11 107 H 12 131/45 L 100 09/15/17 08:00 97.7 F 106 H 12 100 09/15/17 07:12 112 H 13 123/46 L 98 09/15/17 07:00 108 H 13 99 09/15/17 06:11 105 H 20 118/40 L 96 09/15/17 06:00 111 H 23 92 L Intake and Output (Last 8hrs): Intake & Output 09/14/17 09/15/17 09/15/17 22:59 06:59 14:59 Intake Total 964.0 550 200 Output Total 150 20 Balance 814.0 530 200 Weight 176 lb Intake: IV 70 Intake, IV Amount 314.0 100 Right Medial Port 250 100 Right Proximal Port 64.0 Tube Feeding 400 450 100 Other 180 100 Output: Urine 150 20 Straight 150 20 - Physical Exam Head: Positive for: Atraumatic Extroacular Muscles: Positive for: EOMI Mouth: Positive for: Moist Mucous Membranes Respiratory/Chest: Positive for: Clear to Auscultation, Good Air Exchange ( Anteriorly ), Other (Tracheostomy ). Negative for: Respiratory Distress Cardiovascular: Positive for: Regular Rate and Rhythm, Normal S1, S2 Abdomen: Positive for: Distention, Other (Decreased bowel sounds) Upper Extremity: Negative for: Edema Lower Extremity: Negative for: Edema, Swelling Neurological: Negative for: Speech Normal Skin: Positive for: Normal Color Psychiatric: Positive for: Alert. Negative for: Oriented x 3 - Medications Active Medications: Active Medications Generic Name Dose Route Start Last Admin Trade Name Freq PRN Reason Stop Dose Admin Acetylcysteine 4 ml 09/06/17 14:00 09/15/17 08:41 Acetylcysteine 20% INH 4 ml RQ6 LUIS FERNANDO Administration Albuterol/Ipratropium 3 ml 09/01/17 02:00 09/15/17 08:41 Duoneb 3 Mg/0.5 Mg (3 Ml) Ud INH 3 ml RQ6 LUIS FERNANDO Administration Apixaban 2.5 mg 08/27/17 12:00 09/14/17 17:39 Eliquis PO 2.5 mg BID LUIS FERNANDO Administration Aspirin 81 mg 08/26/17 14:00 09/14/17 09:16 Aspirin Chewable PO 81 mg DAILY LUIS FERNANDO Administration Epoetin Chencho 10,000 unit 09/09/17 09:00 09/14/17 15:15 Procrit IV 10,000 unit MWF LUIS FERNANDO Administration Famotidine 20 mg 08/09/17 10:00 09/14/17 09:16 Pepcid PO 20 mg DAILY LUIS FERNANDO Administration Fluconazole 200 mg 09/13/17 10:00 09/14/17 09:16 Diflucan PO 200 mg DAILY LUIS FERNANDO Administration Vancomycin HCl 1 gm/ Sodium 250 mls @ 166.7 mls/hr 09/09/17 09:00 09/14/17 17 :40 Chloride IVPB 166.7 mls/hr MWF LUIS FERNANDO Administration Norepinephrine Bitartrate 4 mg 254 mls @ 15.24 mls/hr 09/13/17 11:11 18:30 / Dextrose IV 0 mcg/min .[id number] PRN 0 mls/hr TITRATE PER MD ORDER Titration Protocol 4 MCG/MIN Meropenem 500 mg/ Sodium 100 mls @ 200 mls/hr 09/13/17 12:00 09/14/17 23:52 Chloride IVPB 200 mls/hr Q12H LUIS FERNANDO Administration Insulin Aspart 0 unit 09/14/17 12:00 09/15/17 06:15 Novolog SC 2 unit Q6 LUIS FERNANDO Administration Protocol Insulin Detemir 43 unit 09/03/17 10:00 09/14/17 21:37 Levemir SC 43 unit Q12 LUIS FERNANDO Administration Lactobacillus Acidophilus 1 cap 08/13/17 18:00 09/14/17 17:39 Bacid Acidophilus PO 1 cap BID LUIS FERNANDO Administration Metoprolol Tartrate 50 mg 09/10/17 12:03 09/14/17 17:53 Lopressor PO Not Given BID LUIS FERNANDO Rosuvastatin Calcium 10 mg 08/06/17 22:00 08/26/17 22:41 Crestor PO 10 mg HS LUIS FERNANDO Administration Sevelamer Carbonate 1.6 gm 09/12/17 17:00 09/15/17 07:31 Renvela GT 1.6 gm TIDCC LUIS FERNANDO Administration Trimethoprim/Sulfamethoxazole 10 ml 09/12/17 22:00 09/14/17 21:37 Sulfatrim Pediatric Susp PO 10 ml Q12 LUIS FERNANDO Administration - Patient Studies Lab Studies: Microbiology Studies 09/14/17 21:55 Gram Stain - Final Sacral 09/13/17 12:30 Blood Culture - Preliminary Blood-Venous NO GROWTH AFTER 24 HOURS 09/13/17 13:00 Blood Culture - Preliminary Blood-Venous NO GROWTH AFTER 24 HOURS 09/13/17 13:42 MRSA Culture (Admit) - Final Naris MRSA NOT DETECTED Lab Studies 09/15/17 09/15/17 09/15/17 Range/Units 06:23 06:23 05:13 WBC 13.9 H (4.8-10.8) K/uL RBC 3.45 L (4.40-5.90) Mil/uL Hgb 8.5 L (12.0-18.0) g/dL Hct 26.4 L (35.0-51.0) % MCV 76.6 L (80.0-94.0) fL MCH 24.7 L (27.0-31.0) pg MCHC 32.2 L (33.0-37.0) g/dL RDW 23.1 H (11.5-14.5) % Plt Count 425 H (130-400) K/uL MPV 8.0 (7.2-11.7) fL Neut % (Auto) 75.1 H (50.0-75.0) % Lymph % (Auto) 15.4 L (20.0-40.0) % [place] % (Auto) 6.5 (0.0-10.0) % Eos % (Auto) 2.4 (0.0-4.0) % Baso % (Auto) 0.6 (0.0-2.0) % Neut # 10.5 H (1.8-7.0) K/uL Lymph # 2.1 (1.0-4.3) K/uL [place] # 0.9 H (0.0-0.8) K/uL Eos # 0.3 (0.0-0.7) K/uL Baso # 0.1 (0.0-0.2) K/uL ESR (0-15) mm/hr Sodium 134 (132-148) mmol/L Potassium 3.4 L (3.6-5.2) mmol/L Chloride 94 L (98-107) mmol/L Carbon Dioxide 28 (22-30) mmol/L Anion Gap 15 (10-20) BUN 54 H (9-20) mg/dL Creatinine 3.3 H (0.8-1.5) mg/dL Est GFR ( Amer) 22 Est GFR (Non-Af Amer) 18 POC Glucose (mg/dL) 162 H (65-110) mg/dL Random Glucose 129 H (75-110) mg/dL Calcium 8.8 (8.6-10.4) mg/dl Phosphorus 2.4 L (2.5-4.5) mg/dL Magnesium 2.2 (1.6-2.3) mg/dL Total Bilirubin 0.3 (0.2-1.3) mg/dL AST 57 (17-59) U/L ALT 56 (21-72) U/L Alkaline Phosphatase 158 H (38-126) U/L Total Protein 7.2 (6.3-8.3) g/dL Albumin 2.8 L (3.5-5.0) g/dL Globulin 4.4 H (2.2-3.9) gm/dL Albumin/Globulin Ratio 0.6 L (1.0-2.1) Random Vancomycin ug/mL 09/15/17 09/14/17 09/14/17 Range/Units 00:03 17:48 11:47 WBC (4.8-10.8) K/uL RBC (4.40-5.90) Mil/uL Hgb (12.0-18.0) g/dL Hct (35.0-51.0) % MCV (80.0-94.0) fL MCH (27.0-31.0) pg MCHC (33.0-37.0) g/dL RDW (11.5-14.5) % Plt Count (130-400) K/uL MPV (7.2-11.7) fL Neut % (Auto) (50.0-75.0) % Lymph % (Auto) (20.0-40.0) % [place] % (Auto) (0.0-10.0) % Eos % (Auto) (0.0-4.0) % Baso % (Auto) (0.0-2.0) % Neut # (1.8-7.0) K/uL Lymph # (1.0-4.3) K/uL [place] # (0.0-0.8) K/uL Eos # (0.0-0.7) K/uL Baso # (0.0-0.2) K/uL ESR 89 H (0-15) mm/hr Sodium (132-148) mmol/L Potassium (3.6-5.2) mmol/L Chloride (98-107) mmol/L Carbon Dioxide (22-30) mmol/L Anion Gap (10-20) BUN (9-20) mg/dL Creatinine (0.8-1.5) mg/dL Est GFR ( Amer) Est GFR (Non-Af Amer) POC Glucose (mg/dL) 212 H 158 H (65-110) mg/dL Random Glucose (75-110) mg/dL Calcium (8.6-10.4) mg/dl Phosphorus (2.5-4.5) mg/dL Magnesium (1.6-2.3) mg/dL Total Bilirubin (0.2-1.3) mg/dL AST (17-59) U/L ALT (21-72) U/L Alkaline Phosphatase (38-126) U/L Total Protein (6.3-8.3) g/dL Albumin (3.5-5.0) g/dL Globulin (2.2-3.9) gm/dL Albumin/Globulin Ratio (1.0-2.1) Random Vancomycin ug/mL 09/14/17 09/14/17 Range/Units 11:26 10:41 WBC (4.8-10.8) K/uL RBC (4.40-5.90) Mil/uL Hgb (12.0-18.0) g/dL Hct (35.0-51.0) % MCV (80.0-94.0) fL MCH (27.0-31.0) pg MCHC (33.0-37.0) g/dL RDW (11.5-14.5) % Plt Count (130-400) K/uL MPV (7.2-11.7) fL Neut % (Auto) (50.0-75.0) % Lymph % (Auto) (20.0-40.0) % [place] % (Auto) (0.0-10.0) % Eos % (Auto) (0.0-4.0) % Baso % (Auto) (0.0-2.0) % Neut # (1.8-7.0) K/uL Lymph # (1.0-4.3) K/uL [place] # (0.0-0.8) K/uL Eos # (0.0-0.7) K/uL Baso # (0.0-0.2) K/uL ESR (0-15) mm/hr Sodium (132-148) mmol/L Potassium (3.6-5.2) mmol/L Chloride (98-107) mmol/L Carbon Dioxide (22-30) mmol/L Anion Gap (10-20) BUN (9-20) mg/dL Creatinine (0.8-1.5) mg/dL Est GFR ( Amer) Est GFR (Non-Af Amer) POC Glucose (mg/dL) 257 H (65-110) mg/dL Random Glucose (75-110) mg/dL Calcium (8.6-10.4) mg/dl Phosphorus (2.5-4.5) mg/dL Magnesium (1.6-2.3) mg/dL Total Bilirubin (0.2-1.3) mg/dL AST (17-59) U/L ALT (21-72) U/L Alkaline Phosphatase (38-126) U/L Total Protein (6.3-8.3) g/dL Albumin (3.5-5.0) g/dL Globulin (2.2-3.9) gm/dL Albumin/Globulin Ratio (1.0-2.1) Random Vancomycin 21.00 ug/mL Laboratory Results - last 24 hr 09/14/17 09/14/17 09/14/17 10:41 11:26 11:47 WBC RBC Hgb Hct MCV MCH MCHC RDW Plt Count MPV Neut % (Auto) Lymph % (Auto) [place] % (Auto) Eos % (Auto) Baso % (Auto) Neut # Lymph # [place] # Eos # Baso # ESR 89 H Sodium Potassium Chloride Carbon Dioxide Anion Gap BUN Creatinine Est GFR ( Amer) Est GFR (Non-Af Amer) POC Glucose (mg/dL) 257 H Random Glucose Calcium Phosphorus Magnesium Total Bilirubin AST ALT Alkaline Phosphatase Total Protein Albumin Globulin Albumin/Globulin Ratio Random Vancomycin 21.00 09/14/17 09/15/17 09/15/17 17:48 00:03 05:13 WBC RBC Hgb Hct MCV MCH MCHC RDW Plt Count MPV Neut % (Auto) Lymph % (Auto) [place] % (Auto) Eos % (Auto) Baso % (Auto) Neut # Lymph # [place] # Eos # Baso # ESR Sodium Potassium Chloride Carbon Dioxide Anion Gap BUN Creatinine Est GFR ( Amer) Est GFR (Non-Af Amer) POC Glucose (mg/dL) 158 H 212 H 162 H Random Glucose Calcium Phosphorus Magnesium Total Bilirubin AST ALT Alkaline Phosphatase Total Protein Albumin Globulin Albumin/Globulin Ratio Random Vancomycin 09/15/17 09/15/17 06:23 06:23 WBC 13.9 H RBC 3.45 L Hgb 8.5 L Hct 26.4 L MCV 76.6 L MCH 24.7 L MCHC 32.2 L RDW 23.1 H Plt Count 425 H MPV 8.0 Neut % (Auto) 75.1 H Lymph % (Auto) 15.4 L [place] % (Auto) 6.5 Eos % (Auto) 2.4 Baso % (Auto) 0.6 Neut # 10.5 H Lymph # 2.1 [place] # 0.9 H Eos # 0.3 Baso # 0.1 ESR Sodium 134 Potassium 3.4 L Chloride 94 L Carbon Dioxide 28 Anion Gap 15 BUN 54 H Creatinine 3.3 H Est GFR ( Amer) 22 Est GFR (Non-Af Amer) 18 POC Glucose (mg/dL) Random Glucose 129 H Calcium 8.8 Phosphorus 2.4 L Magnesium 2.2 Total Bilirubin 0.3 AST 57 ALT 56 Alkaline Phosphatase 158 H Total Protein 7.2 Albumin 2.8 L Globulin 4.4 H Albumin/Globulin Ratio 0.6 L Random Vancomycin Fingerstick Blood Sugar Results: 162 Review of Systems - Review of Systems Review of Systems: Unable to evaluate ROS due to patient's current clinical status Critical Care Progress Note - Ventilator Checklist Head of Bed 30 Degrees: No Daily Sedation Vacation: No Daily Assessment of Readiness to Wean: No Daily Spontaneous Breathing Trial: No PUD Prophalyxis: Yes DVT Prophylaxis: Yes - Nutrition Nutrition: Nutrition Category Date Time Status NPO Diet [DIET] Diets 08/21/17 Dinner Active Assessment/Plan - Assessment and Plan (Free Text) Assessment: Patient is a 77 year old male with PMHx significant for CAD with prior stent placement, HTN, HLD, DM 2, CKD, Anemia, permanent pacemaker, prior DVT and chronic lower extremity edema presents with complaints of chest pain and shortness of breath with ambulation (9/9/17). Patient was admitted to ICU on from hospital floors due to code blue as patient was enrouting to get a CT scan. Patient is currently with a tracheostomy due to respiratory distress secondary to cardiac arrest. Patient was transferred to telemetery on 08/29/17. 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 Cortés----> Help appreciated Medication/Management: * Levophed 4mcg/min (Stopped 09/14/17) * Eliquis 2.5mg PO BID * Aspirin 81mg PO daily * Lopressor 50mg PO BID ( Held due to hypotension) * Crestor 10mg PO HS ( Held due to elevated LFTs) Renal: CKD Manager Flight, Dr. Miranda---> Help appreciated - HD (MWF) via perma cath - Phoslo 1,334mg GT TID - Procrit 10,000 unit IV MWF -Sevelamer Carbonate 1.6gm GT TIDCC Endo: DM type 2 - Accuchecks Q6H - ISS- high dose protocol Q6H - Levemir 43 unit SC Q12H GI: Constipation, Elevated LFTs * Monitor bowel movement * LFTs stable ID: Leukocytosis, Sputum culture ( Enterobacter Cloacae sp, yeast species- 09/07) and blood culture ( Coagulase neg staphy-09/05/17) ID, Dr. Zimmer----> Help appreciated Medications: * Meropenen 500mg IVBP Q12H * Bactrim 10ml PO q12 * Diflucan 200mg PO daily Skin: Unstageable sacral ulcer General surgery consult, Dr. Bay---> Help appreciated * Management as per surgery Medication/Management: * Bone 3D scan * Bedside debridement (09/15/17) Prophylaxis DVT: SCDs and Eliquis 2.5mg PO BID GI: pepcid 20 mg PO daily, Lactobacillus 1 cap PO BID Speech evaluation: Passy-kirti valve PT and OT evaluation and treatment
[2017-09-15] MEDS: Lactobacillus Acidophilus 500 MU Cap PO SCH ×2 (10:02→17:43)
[2017-09-15] MEDS: Tmp-Smz 200-40mg/5 ml Oral Sus(120 ml) PO SCH ×2 (10:03→21:19)
[2017-09-15] MEDS: Insulin Detemir 100 units/ml Vial (Levemir) SC SCH ×2 (10:06→21:18)
--- NOTE | 2017-09-15 10:29 | CP.PCM.PN ---
Subjective - Date & Time of Evaluation Date of Evaluation: 09/15/17 Time of Evaluation: 10:25 - Subjective Subjective: Surgery Progress Note for Dr. Bay HPI: Patient seen and examined at bedside. Sitting up in chair. Looks comfortable. Trach. Nonvocal. ROS unattainable Objective - Vital Signs/Intake and Output Vital Signs (last 24 hours): Temp Pulse Resp BP Pulse Ox 97.7 F 107 H 12 131/45 L 100 09/15/17 08:00 09/15/17 08:11 09/15/17 08:11 09/15/17 08:11 09/15/17 08:11 Intake and Output: 09/15/17 09/15/17 06:59 18:59 Intake Total 1100 200 Output Total 170 Balance 930 200 - Medications Medications: Current Medications Acetylcysteine (Acetylcysteine 20%) 4 ml INH RQ6 [facility] Last Admin: 09/15/17 08:41 Dose: 4 ml Albuterol/Ipratropium (Duoneb 3 Mg/0.5 Mg (3 Ml) Ud) 3 ml INH RQ6 [facility] Last Admin: 09/15/17 08:41 Dose: 3 ml Apixaban (Eliquis) 2.5 mg PO BID [facility] Last Admin: 09/15/17 10:02 Dose: 2.5 mg Aspirin (Aspirin Chewable) 81 mg PO DAILY [facility] Last Admin: 09/15/17 10:02 Dose: 81 mg Epoetin Chencho (Procrit) 10,000 unit IV [facility] Last Admin: 09/14/17 15:15 Dose: 10,000 unit Famotidine (Pepcid) 20 mg PO DAILY [facility] Last Admin: 09/15/17 10:03 Dose: 20 mg Fluconazole (Diflucan) 200 mg PO DAILY [facility] Last Admin: 09/14/17 09:16 Dose: 200 mg Vancomycin HCl 1 gm/ Sodium (Chloride) 250 mls @ 166.7 mls/hr IVPB F [facility] Last Admin: 09/14/17 17:40 Dose: 166.7 mls/hr Norepinephrine Bitartrate 4 mg (/ Dextrose) 254 mls @ 15.24 mls/hr IV .[id number] PRN; Protocol; 4 MCG/MIN PRN Reason: TITRATE PER MD ORDER Last Titration: 09/14/17 18:30 Dose: 0 mcg/min, 0 mls/hr Meropenem 500 mg/ Sodium (Chloride) 100 mls @ 200 mls/hr IVPB Q12H [facility] Last Admin: 09/14/17 23:52 Dose: 200 mls/hr Insulin Aspart (Novolog) 0 unit SC Q6 [facility] PRN Reason: Protocol Last Admin: 09/15/17 06:15 Dose: 2 unit Insulin Detemir (Levemir) 43 unit SC Q12 [facility] Last Admin: 09/15/17 10:06 Dose: 43 unit Lactobacillus Acidophilus (Bacid Acidophilus) 1 cap PO BID [facility] Last Admin: 09/15/17 10:02 Dose: 1 cap Metoprolol Tartrate (Lopressor) 50 mg PO BID [facility] Last Admin: 09/15/17 10:03 Dose: 50 mg Rosuvastatin Calcium (Crestor) 10 mg PO HS [facility] Last Admin: 08/26/17 22:41 Dose: 10 mg Sevelamer Carbonate (Renvela) 1.6 gm GT TIDCC [facility] Last Admin: 09/15/17 07:31 Dose: 1.6 gm Trimethoprim/Sulfamethoxazole (Sulfatrim Pediatric Susp) 10 ml PO Q12 [facility] Last Admin: 09/15/17 10:03 Dose: 10 ml - Labs Labs: 09/15/17 06:23 09/15/17 06:23 PT 13.9 SECONDS (9.7-12.2) H 08/24/17 06:08 INR 1.2 08/24/17 06:08 APTT 55 SECONDS (21-34) H D 08/17/17 06:12 - Constitutional Appears: Chronically Ill - Head Exam Head Exam: ATRAUMATIC, NORMAL INSPECTION, NORMOCEPHALIC - Eye Exam Eye Exam: EOMI - ENT Exam ENT Exam: Mucous Membranes Moist - Neck Exam Additional comments: trach - Respiratory Exam Respiratory Exam: Clear to Ausculation Bilateral - Cardiovascular Exam Cardiovascular Exam: Tachycardia, REGULAR RHYTHM - GI/Abdominal Exam GI & Abdominal Exam: Soft, Normal Bowel Sounds. absent: Distended, Tenderness - Extremities Exam Extremities Exam: absent: Joint Swelling, Tenderness - Back Exam Additional comments: unstagable sacral decub ~[id number] covered in black eschar surrounded by necrotic tissue. - Neurological Exam Neurological Exam: Alert, Awake, Oriented x3 - Skin Skin Exam: Dry, Normal Color, Warm Assessment and Plan - Assessment and Plan (Free Text) Assessment: 77M w/Sacral decub Plan: * bedside debridement planned for today * Further management per ICU * Further reccs per Dr. Shanique White PGY1
[2017-09-15] MEDS: Meropenem 500 MG in Sodium Chloride 0.9% 100 ML IVPB SCH ×2 (11:53→23:04)
--- NOTE | 2017-09-15 14:07 | CP.PCM.PN ---
Subjective - Date & Time of Evaluation Date of Evaluation: 09/15/17 Time of Evaluation: 13:30 - Subjective Subjective: ubjective: Hospitalist Progress Note Patient was seen and examined at 1:30 PM 09/15/17 554 A. 77 year old male with extensive medical history (please see Assessment and Plans below) was admitted on 08/06/17 for evaluation of SOB and Chest Pain. He was planned for Cardiac Catheterization on 08/09/17. Patient then had Acute Respiratory Failure and had to be intubated and placed on vent. He is S/P Tracheostomy 08/22/17 and PEG Tube Placement 08/25/17. Please see details below. ROS are not possible as although patient is awake he is not answering (not shaking his head yes or no) Exam: - Head Exam Head Exam: NORMAL INSPECTION - Eye Exam Eye Exam: could not evaluate EOM due to patient's current status Pupil Exam: round, equal, and reactive to light - Respiratory Exam Respiratory Exam: Decreased Breath Sounds bilateral lower lung buchanan but limited due to lack of patient participation Additional comments: Trach Collar - Cardiovascular Exam Cardiovascular Exam: REGULAR RHYTHM, +S1, +S2 - GI/Abdominal Exam GI & Abdominal Exam: Distended, Soft, BSx4 much improved, could not palpate liver and spleen, PEG Tube Insertion Site LUQ without evidence of cellutlitis. absent: Firm, Guarding, Rigid, Tenderness, Rebound Additional comments: obese habitus, Peg Tube insertion site without signs of cellulitis - Extremities Exam Extremities Exam: Normal Capillary Refill, Pedal Edema. absent: Tenderness Additional comments: Prevalon boots b/l - Neurological Exam Additional comments: Could not be performed due to lack of patient participation - Skin Skin Exam: Unstageable Sacral Ulcer with NO surrounding signs of cellulitis. Shallow Ulcer Left outer ear that is healed. Right heal blister without surrounding signs of cellulitis (1) Acute Respiratory Failure ARDS Cardiac Arrest Pulmonary Edema Nonstemi Assessment and Plan: * Code Blue on 08/10: asystole, cardiopulmonary resuscitative measures initiated , requiring 3 epis, bicarbonate, ROSC achieved and intubated and brought to the ICU for further management; Patient in the ICU from 08/10 until present. * Pulmonary: Dr Mena (Dr. Jeffers covering until 09/04/17)-->help appreciated * Cardiology: Dr. Cortés on board-->help appreciated * GI (Dr. Wills) on board-->help appreciated * S/P Tracheostomy 08/22 * S/P Peg tube placement 08/25 * s/p insertion of right posterior chest tube 08/19-->removed 08/24/17 * There was consideration for possible thoracentesis of left side pleural effusion, evaluated by IR, there is no fluid to drain per Dr. Gross * Chest xray (08/26): right arm PICC is seen with the tip of distal subclavian vein. PICC may be used * Per cardiology, * Restart Aspirin 81mg PO daily * Patient does not need Plavix at this time * Recommend for Eliquis 2.5mg PO BID for atrial flutter * 08/27: patient is pending LTAC, he went eventually need cardiac catheterization when he has stabilized. Held statin secondary to elevated LFTs. Discussed with Dr. Cortés, lowered Amiodarone 200mg PO daily * 08/28: patient is pending LTAC, he went eventually need cardiac catheterization when he has stabilized. Liver function tests improving * 08/29: Tape Recorder Repairer Nehal has sent request to insurance for authorization for LTAC-->pending * 09/06: pending social work/case management approval for LTAC * 09/07: pending social work/case management approval for LTAC * 09/08: Unable to get approval for LTAC; pending other options * 09/09: Transferred from step-down ICU to the floors * 09/13: Trasnferred back to ICU S/P Rapid Response for low blood pressure * 09/14: Currently on Acetylcysteine 20 % Neb Q6H and Duoneb Q6H * 09/15: Passy Flex Trach placed by Boiler Service Technician (2) Abnormal Stress Test History of AICD History of Coronary Artery Disease Assessment and Plan: * Cardiology (Dr. Cortés) on board-->help appreciated * TSH: 1.16; T4: 1.53 * Echocardiogram (08/08/17): left ventricle systolic function is severely impaired. EF: 25-30%; global hypokinesis of left ventricle mild aortic regurgitation. Mitral regurgitation is moderate. Moderate-severe pulmonary hypertension * Plan was for cardiac catheterization; delayed due to acute renal failure; Attempted gentle hydration and mucomyst on 08/09 to optimize prior to cath * On 08/10, patient was in asystole, ACLS protocol, ROSC achieved, intubated and transfered to the ICU. Patient in acute pulmonary edema. * Patient hospitalized in the ICU since 08/10/17 to present. * Medications: * Aspirin 81mg PO daily * Plavix d/c by cardiology * Lopressor 50mg PO bid * d/c Crestor 10mg POqHS secondary to rise in LFTS 08/27--->monitor LFTs daily * ARB d/c secondary to acute renal failure * 08/27: patient is pending LTAC, he went eventually need cardiac catheterization when he has stabilized. Held statin secondary to elevated LFTs. Discussed with Dr. Cortés, lowered Amiodarone 200mg PO daily * 08/28: He will eventually need cardiac catheterization when he has stabilized. Liver function tests improving. Statin is on hold (3) Atrial flutter Assessment and Plan: * Cardiology (Dr. Cortés) on board-->help appreciated * Refractory to Lopressor/Cardizem IVP * Eliquis 2.5mg PO bid * Amiodarone bolus-->Amiodarine drip on 08/24-->converted to Amiodarone 200mg PO TID on 08/26 and this was decreased to 200 mg 1x/day due to increased LFTs * 08/27: Discussed with Dr. Cortés, will lower Amiodarone 200mg PO daily and monitor LFTs. Statin held and tylenol d/c * 08/29: patient is pending LTAC, he will eventually need cardiac catheterization when he has stabilized. Liver function tests improving. Statin is on hold due to the elevated LFTs * 08/30: Cardiology discontinued the Amiodarone * 09/07: Held eliquis; will need to resume * 09/09: Eliquis resumed, off Amiodarone Status: Acute (4) Acute on Chronic Systolic CHF exacerbation Assessment and Plan: * Cardiology (Dr. Cortés) on board-->help appreciated * Transferred to the ICU on 08/10 following cardiac arrest and intubation. * Echocardiogram (08/08/17): left ventricular systolic function is severely impaired. EF: 25-30%; global hypokinesis of left ventricle mild aortic regurgitation. Mitral regurgitation is moderate. Moderate-severe pulmonary hypertension * Medications: * Aspirin 81mg PO daily * Plavix d/c by cardiology * Lopressor 50mg PO bid * d/c Crestor 10mg POqHS on 08/27 secondary to rise in LFTs * ARB d/c secondary to acute renal failure Status: Acute (5) Leukocytosis Assessment and Plan: * Patient's white count downtrending * Pleural Fluid 08/19/17 did not show any growth * Blood cultures (08/26): no growth X5 days * UA and urine culture (08/27): Urine Culture showed Yeast Species. * Patient has elevated LFTs-->did not start anti-fungal in light of LFTs New: * 09/05/17 Blood: gram positive cocci-->pending speciation * 09/05/17 Blood: no growth after 4 days * 09/07/17 Legionella Culture: negative * 09/07/17 Mycobacteria: negative * 09/07/17 Sputum: Enterocloace Bacter; yeast * 09/07/17 Blood: negative X 48 hours * 09/07/17 Blood: negative X 48 hours * 09/06: stool culture pending; has not had diarrhea or bowel movement * 09/07: Dr. Zimmer (covering Dr. Lawrence) to see the patient given elevated procalcitonin * Blood Culture 09/13/17 is negative to date and Urine Culture 09/13/17 showed Yeast Species * 09/14: Could this be secondary to the Septic Shock? Secondary to Osteomyelitis of the Sacrum? He is currently on the following medications that should cover these possibilities and based upon Sputum Culture 09/07/17 results : Vancomycin 1 gram MWF (09/09/17) and Meropenem 500 mg IV Q8H (09/13/17), Diflucan 200 mg PO 1x/day (09/13/17), Bactrim 10 mL PO Q12H (09/12/17) * Vancomycin Trough Random 09/14/17 is 21 and this is ok for now as we would like the Trough to be 10-20 considering the possibility of Sacral Osteomyelitis * ESR 09/14/17 elevated at 89 * F/U Bone Scan 09/15/17 Status: Acute (6) Pneumonia Assessment and Plan: * Pulmonary (Dr. Mena) on board-->help appreciated; Dr. Jeffers covering while Dr. Mena away * Infectious Disease (Dr. Lawrence)-->help appreciated * Chest xray (08/26): right arm PICC is seen with the tip of distal subclavian vein. PICC may be used * Rapid A strep, Influenza A and B studies, Urine Legionella, Mycoplasma studies = Negative * Florastor 250mg PO bid * 08/07/17: +Strep Pneumoniae in the urine * Meropenem 500mg IV Q 8 hours (08/14/17 through 08/18/17) and Zosyn 2.25 mg IV Q6H (08/13/17 through 08/18/17) * Cefepime 1 gm IV Q24H: started on 08/19/17 and was discontinued by ID Dr. Lawrence on 08/30/17: monitor vitals and labs * s/p right posterior chest tube 08/19-08/24 * Sputum Culture 08/19/17 shows No growth * Pleural fluid 08/19/17: No growth * 09/07/17 Sputum: Enterocloace Bacter and Yeast Species: See Antibiotic treatment in previous Assessment and Plan * Sputum 09/10/17 shows NO AFB Status: Acute (7) HTN (hypertension) Assessment and Plan: * Lopressor 50mg PO bid * Lisinopril 5mg PO daily Status: Chronic (8) CKD (chronic kidney disease) on Dialysis Assessment and Plan: * Dr. Miranda (nephrology) consulted on the case * Hx of CKD-->Started on dialysis 08/15/17 * Kurtis catheter placed and removed 08/22 * s/p Right Chest Permcath 08/22 * Patient is on dialysis M-W-F; oliguric * Phoslo 1334mg GT TID * Epoetin 10,000 unit IV MWF Status: Acute (9) Diabetes mellitus Assessment and Plan: * Accuchecks Q6H * HgbA1c 8.4 * Started peg feedings on 08/26/17 * Nepro-->50 ml/hour but this was held 09/13/17 due suspicion of Bowel Obstruction as NO bowel Movement since 09/07/17. This was restarted on after NO obstruction was observed on Obstruction Series 09/13/17 and after multiple bowel movement s/p Fleet Enema 09/13/17 (10) HLD (hyperlipidemia) Assessment and Plan: * 08/27: held Crestor 10 mg PO HS secondary to rise in LFTs * 08/29: Liver function tests improving; waiting to restart statin Status: Chronic (11) Anemia Assessment and Plan: * Heme-oncology (Dr. Giles bender) on board-->help appreciated * Likely iron deficiency anemia based on prior admissions * Ferritin 27.4, Iron 22, TIBC 322, % Saturation 7 * Ferric Sodium Gluconate 125mg IVPB daily (active 08/08-08/16) * Procrit 10,000 units M-- * Monitor Hgb/Hct: stable Status: Chronic (12) History of DVT (deep vein thrombosis) Assessment and Plan: * Patient was previously on Eliquis for a prior history of DVT. * Repeat dopplers 08/09/17 are negative for DVT * Off Heparin Drip 08/17/17 * Started Eliquis 2.5mg PO BID for atrial flutter and history of DVT Status: Chronic (13) UTI Assessment and Plan: * Infectious disease (Dr. Lawrence) on board-->help appreciated * Exchange jaquez out and repeat urine cultures * Urine Culture 08/12/17 showed Gram Negative Rods: NO identification and NO sensitivities were performed * Meropenem 500mg IV Q 12hours (active since 08/14/17 through 08/18/17) to cover for UTI per ID * Repeat Urine Culture 08/18/17 shows NO growth * 08/25: reculture in light of leukocytosis * 08/27: pending urine studies * 08/30: Urine Culture 08/27/17 showed Yeast Species but no antifungal at that time secondary to recent history of Elevated LFTs * Urine Culture 09/13/17 showed Yeast Species: he is on Diflucan Status: Chronic (14) Confusion; Alzheimer's Dementia Assessment and Plan: * Per daughter, patient has been getting bouts of confusion over the past year but appears at baseline. Patient has not seen formal neurology as outpatient per daughter. Per , prior to event, noted Alzheimers' disease dx one year ago * CT head w/o contrast (08/10/17):acute os subacute lacune infarct is not excluded in the left basal ganglia inferiorly with definitive chronic lacune identified in the right basal ganglia superiorly. No acute or subacute lobar brain infarction is appreciable by standard CT criteria. Mild age-related neuro degenerative changes are identifed. No acute intracranial hemorrhage or mass is identified throughout * 08/26: Off Sedation-->patient moves all extremities randomly but does not follow directions * 08/27: off sedation-->patient is very calm, smiles at his * 08/28: off sedation-->patient is very calm Status: Chronic (15) Unstageable Sacral Ulcer, Left Ear Auricle Ulcer, Right Heal Ulcer Assessment and Plan: * Wound care on board * WOUND CARE NOTE (08/26)-->Pt with a sacral unstageable being treated with medihoney. No changes to dimensions at this time. Also, pt favoring Left side of head and has developed a 1x1 serous filled blister on his left ear. Primary nurse placed duoderm on the ear. Wound care nurse left duoderm in place , and recommends leaving it on until it falls off on its own. Pt has been NPO for several days, new peg inserted yesterday. Will be starting glucerna tube feedings later today. Albumin 3.3 * Turn q 2 hours * medihoney on unstageable ulcer * duoderm on left ear aurical ulcer: this is healed as of 09/15/17 * Prevalon Boots for Right Heal Blister 09/13/17 * 09/02/17: examined with Wound Care Nurse Emeka Samuel and periphery of the Sacral Wound is pink with some bleeding however center is still black and therefore still unstageable. Continue spray with Cavelon followed by thick coating with MediHoney followed by covering with OptiFoam once a day. * 09/03/17: Change of sacral ulcer dressing was performed by me with assitance from Nurse Lyman * 09/04/17: 09/03/17: Change of sacral ulcer dressing was performed by me with assistance from ALEXANDRA Unger * Per wound care note (09/07): sacral ulcer is stable per wound care nurse * 09/14/17: Sacral Ulcer is unstageable and area of blackness fills entire circumference. General Surgery consult placed to see if debridement is necessary. Continue Cavelon [facility] followed by paulina thick coating of MediHoney followed by covering with OptiFoam. * 09/15/17: Surgery Team debrided Sacral Ulcer and Bone Scan will need to be followed up Status: Acute (16) Elevated LFTs Assessment and Plan: * 08/27: Yina * Discussed with cardiology-->changed amiodarone 200mg PO tid to amiodaron 200mg PO daily * D/C tylenol * Held Statin * patient is also on Rocephin to cover for pneumonia * Will not start antifungal * 08/29: starting to down trending since change in amiodarone dose; awaiting to restart statin * 08/30: continues to trend down. Amiodarone was discontinued * 09/01: AST, ALT, Alk Phos still elevated but stable * 09/02: AST, ALT, Alk Phos still elevated but stable * 09/03: LFTs stable * 09/04: LFTs stable Status: Acute (17). Hx Constipation * Monitor bowel movement * Multiple bowel movements on 09/13/17 and 09/14/17 that are well formed s/p Fleet Enema on 09/13/17 * 09/15/17: NO bowel movement (). Prophylactic measure Assessment and Plan: * Pepcid 20mg PO daily * Start Eliquis 2.5mg PO BID * s/p peg placement 08/25 * s/p trachesostomy 08/22 * s/p Permcath placement 08/22 removal Kurtis catheter * s/p right posterior chest tube 08/19-->removed 08/24 * s/p Right Arm PICC 08/26 * (Jovita Serrano): -->number provided to the nurse- ->consented for peg placement; discussed about LTAC 08/26 * Spoke with Dr. Pickard, MARIAJOSE regarding patient's hospitalization up until this point 08/2609/01/17: Dr. Cullen Barth spoke with the patient's [place] with the assistance of Nurse Beth on 3 tower (as multiple attempts of using [employer] indicated that all of the [place] translators were busy) and explained all of the patient's diagnosises. 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 Her ultimate wish is to take patient to [facility] where their children live. I explained to patient that I would not know how that would be coordinated but that the Social Workers/Cataloging Assistant at LTAC may be of assistance in this regard. I also informed her that I am not aware of any insurance company that would finance this request. She understands that the patient is awaiting insurance approval for LTAC. 09/01/17 and 09/02/17: Dr. Cullen Barth spoke with Lead Manufacturing Technician Demetria and we are still awaiting insurance authorization for LTAC placement. 09/05/17: Spoke with nehal, social service manager, wean trials sent to LTAC pending approval no word yet regarding approval. Ordered for repeat cultures given uptrend in white count. 09/06/17: pending repeat cultures in light of elevated procalcitonin; ID recommended to reculture. Note: patients PICC lined had clogged ports. Red port remains clogged in spite of cath rafaela. Blue port improved after cath rafaela. Possible may need to remove line to r/o infected line. Strong suspicion due to patient's pneumonia given he has thick secretions. 09/07/17: Infectious disease. pending repeat cultures in light of elevated procalcitonin; Note: patients PICC lined had clogged ports. Red port remains clogged in spite of cath rafaela. Blue port improved after cath rafaela. Hip xray negative for acute fracture. There are no noted falls. 09/08/17: Patient denied for LTAC; awaiting for other options from case management/social work. Resident Daniel spoke with Dr. Cortés, patient be transferred under regular bed, when bed is available. Infectious disease on board; Patient started on IV Vancomycin in light of + blood culture. Pending chest xray. 09/09/17: Patient denied for LTAC; awaiting for other options from case management/social work with kamlesh verdin support. Patient started on IV Vancomycin MWF in light of + blood culture. Pending chest xray. F/U sputum with ID. f/u latest blood cultures. 09/13/17: Rapid response for low blood pressure and elevated WBC likely Septic Shock. Started on Levophed, added Meropenem to Vancomycin and 1 dose of Gentamycin given after speaking with ID. Ordered Obstruction Series as no bowel movement since 09/07/17. F/U Shock Panel. Discussed with ICU Resident to arrange for Change of Right Arm Midline line and Trach Collar. 09/14/17: Will await results of Blood Culture 09/13/17 to determine if the Right Arm Midline, Right Chest Perm Cath, and Trach Collar needs to be changed. Spoke with Lead Manufacturing Technician Demetria in ICU and patient information has been sent to [facility] and [facility] (they accept patients on Trach) and she is awaiting to hear back from them before submitting approval request to insurance company. 09/15/17: Passy Carpenter Trach placed by Boiler Service Technician. Surgical Team for debridement of Sacral Ulcer. Spoke with patient's (IN DEMAND Denisa [id number]) and explained/updated her on patient condition and obtained consent for sacral ulcer debridement. Cullen Barth D.O. Objective - Vital Signs/Intake and Output Vital Signs (last 24 hours): Temp Pulse Resp BP Pulse Ox 97.7 F 94 H 14 129/44 L 99 09/15/17 08:00 09/15/17 12:11 09/15/17 12:11 09/15/17 12:11 09/15/17 12:11 Intake and Output: 09/15/17 09/15/17 06:59 18:59 Intake Total 1100 450 Output Total 170 Balance 930 450 - Medications Medications: Current Medications Acetylcysteine (Acetylcysteine 20%) 4 ml INH RQ6 PENDING SALE TO [facility] Last Admin: 09/15/17 08:41 Dose: 4 ml Albuterol/Ipratropium (Duoneb 3 Mg/0.5 Mg (3 Ml) Ud) 3 ml INH RQ6 PENDING SALE TO [facility] Last Admin: 09/15/17 08:41 Dose: 3 ml Apixaban (Eliquis) 2.5 mg PO BID PENDING SALE TO [facility] Last Admin: 09/15/17 10:02 Dose: 2.5 mg Aspirin (Aspirin Chewable) 81 mg PO DAILY PENDING SALE TO [facility] Last Admin: 09/15/17 10:02 Dose: 81 mg Epoetin Chencho (Procrit) 10,000 unit IV MWF PENDING SALE TO [facility] Last Admin: 09/14/17 15:15 Dose: 10,000 unit Famotidine (Pepcid) 20 mg PO DAILY PENDING SALE TO [facility] Last Admin: 09/15/17 10:03 Dose: 20 mg Fluconazole (Diflucan) 200 mg PO DAILY PENDING SALE TO [facility] Last Admin: 09/15/17 11:53 Dose: 200 mg Vancomycin HCl 1 gm/ Sodium (Chloride) 250 mls @ 166.7 mls/hr IVPB MWF PENDING SALE TO [facility] Last Admin: 09/14/17 17:40 Dose: 166.7 mls/hr Norepinephrine Bitartrate 4 mg (/ Dextrose) 254 mls @ 15.24 mls/hr IV .[id number] PRN; Protocol; 4 MCG/MIN PRN Reason: TITRATE PER MD ORDER Last Titration: 09/14/17 18:30 Dose: 0 mcg/min, 0 mls/hr Meropenem 500 mg/ Sodium (Chloride) 100 mls @ 200 mls/hr IVPB Q12H PENDING SALE TO [facility] Last Admin: 09/15/17 11:53 Dose: 200 mls/hr Insulin Aspart (Novolog) 0 unit SC Q6 LUIS FERNANDO PRN Reason: Protocol Last Admin: 09/15/17 12:02 Dose: 2 unit Insulin Detemir (Levemir) 43 unit SC Q12 PENDING SALE TO [facility] Last Admin: 09/15/17 10:06 Dose: 43 unit Lactobacillus Acidophilus (Bacid Acidophilus) 1 cap PO BID PENDING SALE TO [facility] Last Admin: 09/15/17 10:02 Dose: 1 cap Metoprolol Tartrate (Lopressor) 50 mg PO BID PENDING SALE TO [facility] Last Admin: 09/15/17 10:03 Dose: 50 mg Rosuvastatin Calcium (Crestor) 10 mg PO HS PENDING SALE TO [facility] Last Admin: 08/26/17 22:41 Dose: 10 mg Sevelamer Carbonate (Renvela) 1.6 gm GT TIDCC PENDING SALE TO [facility] Last Admin: 09/15/17 07:31 Dose: 1.6 gm Trimethoprim/Sulfamethoxazole (Sulfatrim Pediatric Susp) 10 ml PO Q12 PENDING SALE TO [facility] Last Admin: 09/15/17 10:03 Dose: 10 ml - Labs Labs: 09/15/17 06:23 09/15/17 06:23 PT 13.9 SECONDS (9.7-12.2) H 08/24/17 06:08 INR 1.2 08/24/17 06:08 APTT 55 SECONDS (21-34) H D 08/17/17 06:12
--- NOTE | 2017-09-15 17:11 | CP.PCM.PN ---
Objective - Vital Signs/Intake and Output Vital Signs (last 24 hours): Temp Pulse Resp BP Pulse Ox 98.8 F 90 28 H 111/37 L 100 09/15/17 16:00 09/15/17 17:00 09/15/17 17:00 09/15/17 16:11 09/15/17 17:00 Intake and Output: 09/15/17 09/15/17 06:59 18:59 Intake Total 1100 850 Output Total 170 Balance 930 850 - Medications Medications: Current Medications Acetylcysteine (Acetylcysteine 20%) 4 ml INH RQ6 [facility] Last Admin: 09/15/17 14:41 Dose: 4 ml Albuterol/Ipratropium (Duoneb 3 Mg/0.5 Mg (3 Ml) Ud) 3 ml INH RQ6 [facility] Last Admin: 09/15/17 14:41 Dose: 3 ml Apixaban (Eliquis) 2.5 mg PO BID [facility] Last Admin: 09/15/17 10:02 Dose: 2.5 mg Aspirin (Aspirin Chewable) 81 mg PO DAILY [facility] Last Admin: 09/15/17 10:02 Dose: 81 mg Epoetin Chencho (Procrit) 10,000 unit IV MWF [facility] Last Admin: 09/14/17 15:15 Dose: 10,000 unit Famotidine (Pepcid) 20 mg PO DAILY [facility] Last Admin: 09/15/17 10:03 Dose: 20 mg Fluconazole (Diflucan) 200 mg PO DAILY [facility] Last Admin: 09/15/17 11:53 Dose: 200 mg Vancomycin HCl 1 gm/ Sodium (Chloride) 250 mls @ 166.7 mls/hr IVPB MWF [facility] Last Admin: 09/14/17 17:40 Dose: 166.7 mls/hr Norepinephrine Bitartrate 4 mg (/ Dextrose) 254 mls @ 15.24 mls/hr IV .[id number] PRN; Protocol; 4 MCG/MIN PRN Reason: TITRATE PER MD ORDER Last Titration: 09/14/17 18:30 Dose: 0 mcg/min, 0 mls/hr Meropenem 500 mg/ Sodium (Chloride) 100 mls @ 200 mls/hr IVPB Q12H [facility] Last Admin: 09/15/17 11:53 Dose: 200 mls/hr Insulin Aspart (Novolog) 0 unit SC Q6 [facility] PRN Reason: Protocol Last Admin: 09/15/17 12:02 Dose: 2 unit Insulin Detemir (Levemir) 43 unit SC Q12 [facility] Last Admin: 09/15/17 10:06 Dose: 43 unit Lactobacillus Acidophilus (Bacid Acidophilus) 1 cap PO BID [facility] Last Admin: 09/15/17 10:02 Dose: 1 cap Metoprolol Tartrate (Lopressor) 50 mg PO BID [facility] Last Admin: 09/15/17 10:03 Dose: 50 mg Rosuvastatin Calcium (Crestor) 10 mg PO HS [facility] Last Admin: 08/26/17 22:41 Dose: 10 mg Sevelamer Carbonate (Renvela) 1.6 gm GT TIDCC [facility] Last Admin: 09/15/17 12:00 Dose: 1.6 gm Trimethoprim/Sulfamethoxazole (Sulfatrim Pediatric Susp) 10 ml PO Q12 [facility] Last Admin: 09/15/17 10:03 Dose: 10 ml - Labs Labs: 09/15/17 06:23 09/15/17 06:23 PT 13.9 SECONDS (9.7-12.2) H 08/24/17 06:08 INR 1.2 08/24/17 06:08 APTT 55 SECONDS (21-34) H D 08/17/17 06:12 Assessment and Plan (1) Cardiac arrest Status: Acute (2) Pneumonia Status: Acute (3) History of DVT (deep vein thrombosis) Status: Acute (4) CKD (chronic kidney disease) Status: Chronic (5) Acute on chronic renal failure Status: Acute (6) CHF (congestive heart failure) Status: Acute
--- NOTE | 2017-09-15 18:17 | CP.PCM.PN ---
Subjective - Date & Time of Evaluation Date of Evaluation: 09/15/17 Time of Evaluation: 08:00 - Subjective Subjective: events noted no new cultures iv rx to cont Objective - Vital Signs/Intake and Output Vital Signs (last 24 hours): Temp Pulse Resp BP Pulse Ox 98.8 F 90 28 H 111/37 L 100 09/15/17 16:00 09/15/17 17:00 09/15/17 17:00 09/15/17 16:11 09/15/17 17:00 Intake and Output: 09/15/17 09/15/17 06:59 18:59 Intake Total 1100 850 Output Total 170 Balance 930 850 - Medications Medications: Current Medications Acetylcysteine (Acetylcysteine 20%) 4 ml INH RQ6 [facility] Last Admin: 09/15/17 14:41 Dose: 4 ml Albuterol/Ipratropium (Duoneb 3 Mg/0.5 Mg (3 Ml) Ud) 3 ml INH RQ6 [facility] Last Admin: 09/15/17 14:41 Dose: 3 ml Apixaban (Eliquis) 2.5 mg PO BID [facility] Last Admin: 09/15/17 17:43 Dose: 2.5 mg Aspirin (Aspirin Chewable) 81 mg PO DAILY [facility] Last Admin: 09/15/17 10:02 Dose: 81 mg Epoetin Chencho (Procrit) 10,000 unit IV [facility] Last Admin: 09/14/17 15:15 Dose: 10,000 unit Famotidine (Pepcid) 20 mg PO DAILY [facility] Last Admin: 09/15/17 10:03 Dose: 20 mg Fluconazole (Diflucan) 200 mg PO DAILY [facility] Last Admin: 09/15/17 11:53 Dose: 200 mg Vancomycin HCl 1 gm/ Sodium (Chloride) 250 mls @ 166.7 mls/hr IVPB MWF [facility] Last Admin: 09/14/17 17:40 Dose: 166.7 mls/hr Norepinephrine Bitartrate 4 mg (/ Dextrose) 254 mls @ 15.24 mls/hr IV .[id number] PRN; Protocol; 4 MCG/MIN PRN Reason: TITRATE PER MD ORDER Last Titration: 09/14/17 18:30 Dose: 0 mcg/min, 0 mls/hr Meropenem 500 mg/ Sodium (Chloride) 100 mls @ 200 mls/hr IVPB Q12H [facility] Last Admin: 09/15/17 11:53 Dose: 200 mls/hr Insulin Aspart (Novolog) 0 unit SC Q6 [facility] PRN Reason: Protocol Last Admin: 09/15/17 17:51 Dose: Not Given Insulin Detemir (Levemir) 43 unit SC Q12 [facility] Last Admin: 09/15/17 10:06 Dose: 43 unit Lactobacillus Acidophilus (Bacid Acidophilus) 1 cap PO BID [facility] Last Admin: 09/15/17 17:43 Dose: 1 cap Metoprolol Tartrate (Lopressor) 50 mg PO BID [facility] Last Admin: 09/15/17 17:43 Dose: 50 mg Rosuvastatin Calcium (Crestor) 10 mg PO HS [facility] Last Admin: 08/26/17 22:41 Dose: 10 mg Sevelamer Carbonate (Renvela) 1.6 gm GT TIDCC [facility] Last Admin: 09/15/17 17:43 Dose: 1.6 gm Trimethoprim/Sulfamethoxazole (Sulfatrim Pediatric Susp) 10 ml PO Q12 [facility] Last Admin: 09/15/17 10:03 Dose: 10 ml - Labs Labs: 09/15/17 06:23 09/15/17 06:23 PT 13.9 SECONDS (9.7-12.2) H 08/24/17 06:08 INR 1.2 08/24/17 06:08 APTT 55 SECONDS (21-34) H D 08/17/17 06:12 - Constitutional Appears: Non-toxic, Cachectic, Chronically Ill - Head Exam Head Exam: NORMOCEPHALIC - Eye Exam Eye Exam: PERRL - ENT Exam ENT Exam: Mucous Membranes Dry - Neck Exam Neck Exam: absent: Lymphadenopathy - Respiratory Exam Respiratory Exam: Decreased Breath Sounds - Cardiovascular Exam Cardiovascular Exam: REGULAR RHYTHM - GI/Abdominal Exam GI & Abdominal Exam: Distended, Soft - Rectal Exam Rectal Exam: Deferred - Exam Exam: NORMAL INSPECTION - Extremities Exam Extremities Exam: absent: Pedal Edema Assessment and Plan (1) ARDS (adult respiratory distress syndrome) Status: Acute (2) Acute on chronic renal failure Status: Acute (3) CHF (congestive heart failure) Status: Acute (4) Cardiac arrest Status: Acute (5) ESRD (end stage renal disease) Status: Acute (6) Leukocytosis Status: Acute (7) Pneumonia Status: Acute (8) Type 2 diabetes mellitus with diabetic nephropathy Status: Acute - Assessment and Plan (Free Text) Assessment: cont wound care, nutritional support, iv antibiotics
--- NOTE | 2017-09-15 22:24 | CP.PCM.PN ---
Subjective - Date & Time of Evaluation Date of Evaluation: 09/15/17 Time of Evaluation: 07:40 - Subjective Subjective: Patient seen and evaluated No cardiac events Sepsis on antibiotics Physical Examination - Constitutional Appears: Non-toxic, No Acute Distress - Head Exam Head Exam: ATRAUMATIC - Eye Exam Eye Exam: EOMI - Neck Exam Neck Exam: Full ROM - Cardiovascular Exam Cardiovascular Exam: Irregular Rhythm, +S1, +S2 - GI/Abdominal Exam GI & Abdominal Exam: Soft, Normal Bowel Sounds - Extremities Exam Extremities Exam: Full ROM - Neurological Exam Neurological Exam: Altered - Psychiatric Exam Psychiatric exam: Flat Affect - Skin Skin Exam: Dry, Warm Objective - Vital Signs/Intake and Output Vital Signs (last 24 hours): Temp Pulse Resp BP Pulse Ox 99 F 101 H 20 118/73 97 09/15/17 20:00 09/15/17 22:00 09/15/17 22:00 09/15/17 21:11 09/15/17 22:00 Intake and Output: 09/15/17 09/16/17 18:59 06:59 Intake Total 900 250 Balance 900 250 - Medications Medications: Current Medications Acetylcysteine (Acetylcysteine 20%) 4 ml INH RQ6 [facility] Last Admin: 09/15/17 19:39 Dose: 4 ml Albuterol/Ipratropium (Duoneb 3 Mg/0.5 Mg (3 Ml) Ud) 3 ml INH RQ6 [facility] Last Admin: 09/15/17 19:39 Dose: 3 ml Apixaban (Eliquis) 2.5 mg PO BID [facility] Last Admin: 09/15/17 17:43 Dose: 2.5 mg Aspirin (Aspirin Chewable) 81 mg PO DAILY [facility] Last Admin: 09/15/17 10:02 Dose: 81 mg Epoetin Chencho (Procrit) 10,000 unit IV MWF [facility] Last Admin: 09/14/17 15:15 Dose: 10,000 unit Famotidine (Pepcid) 20 mg PO DAILY [facility] Last Admin: 09/15/17 10:03 Dose: 20 mg Fluconazole (Diflucan) 200 mg PO DAILY [facility] Last Admin: 09/15/17 11:53 Dose: 200 mg Vancomycin HCl 1 gm/ Sodium (Chloride) 250 mls @ 166.7 mls/hr IVPB MWF [facility] Last Admin: 09/14/17 17:40 Dose: 166.7 mls/hr Norepinephrine Bitartrate 4 mg (/ Dextrose) 254 mls @ 15.24 mls/hr IV .[id number] PRN; Protocol; 4 MCG/MIN PRN Reason: TITRATE PER MD ORDER Last Titration: 09/14/17 18:30 Dose: 0 mcg/min, 0 mls/hr Meropenem 500 mg/ Sodium (Chloride) 100 mls @ 200 mls/hr IVPB Q12H [facility] Last Admin: 09/15/17 11:53 Dose: 200 mls/hr Insulin Aspart (Novolog) 0 unit SC Q6 [facility] PRN Reason: Protocol Last Admin: 09/15/17 17:51 Dose: Not Given Insulin Detemir (Levemir) 43 unit SC Q12 [facility] Last Admin: 09/15/17 21:18 Dose: 43 unit Lactobacillus Acidophilus (Bacid Acidophilus) 1 cap PO BID [facility] Last Admin: 09/15/17 17:43 Dose: 1 cap Metoprolol Tartrate (Lopressor) 50 mg PO BID [facility] Last Admin: 09/15/17 17:43 Dose: 50 mg Rosuvastatin Calcium (Crestor) 10 mg PO HS [facility] Last Admin: 08/26/17 22:41 Dose: 10 mg Sevelamer Carbonate (Renvela) 1.6 gm GT TIDCC [facility] Last Admin: 09/15/17 17:43 Dose: 1.6 gm Trimethoprim/Sulfamethoxazole (Sulfatrim Pediatric Susp) 10 ml PO Q12 [facility] Last Admin: 09/15/17 21:19 Dose: 10 ml - Labs Labs: 09/15/17 06:23 09/15/17 06:23 PT 13.9 SECONDS (9.7-12.2) H 08/24/17 06:08 INR 1.2 08/24/17 06:08 APTT 55 SECONDS (21-34) H D 08/17/17 06:12 Assessment and Plan - Assessment and Plan (Free Text) Assessment: SIRS Hypotensive event with tachycardia yesterday Considerations for sacral wound. Concepcion cultures- Wound cultures grew out Vancomycin Resistant Enteroccoci, Urine cuture- yeast species Has undergone wound debridement per Surgery Atrial Fibrillation Intermittent Rate controlled. On Metoprolol 50 mg PO BID, Eliquis 2.5 mg PO BID CAD, chest pain -No current plans for cardiac cath (acute respiratory failure and elevated Cr) , history of abnormal stress test -Elevated Troponin likely due to chest compressions during cardiac arrest 08/10 -No acute ST changes on EKG -Continue ASA, Crestor, Metoprolol. -Echocardiogram from 08/08/17 showed left ventricle systolic function is severely impaired. EF: 25-30%; global hypokinesis of LV mild AR. MR is moderate. Moderate-severe pulmonary hypertension Systolic CHF exacerbation -CXR 09/09: Diminished bilateral basilar airspace disease; stable cardiomegaly -BNP 50661 on 08/06/17 -Continue ASA, Crestor, Metoprolol -Echocardiogram from 08/08/17 showed left ventricle systolic function is severely impaired. EF: 25-30%; global hypokinesis of LV mild AR. MR is moderate. Moderate-severe pulmonary hypertesnion Dobutamine discontinued in light of atrial flutter-type episodes Diabetes Mellitus ISS Continue to monitor ESRD on HD Currently on HD On Procrit and Phoslo Nephro on the case Prophylaxis Pepcid 20 mg PO daily Eliquis 2.5 mg PO BID (Renal precautions) Disposition Awaiting Transfer to LTAC
[2017-09-16] MEDS: (Novolog) Insulin Aspart, Recombinant 100 u/ml 10 ml vial SC SCH ×4 (00:55→18:13)
[2017-09-16] MEDS: Acetylcysteine 20% Inhal Soln (4ml) INH SCH ×4 (01:18→19:05)
[2017-09-16] MEDS: Albuterol-Ipratrop 3 mg / 0.5 (3 ml) UD INH SCH ×4 (01:18→19:06)
--- NOTE | 2017-09-16 07:43 | CP.PCM.PN ---
<Darryl Roe - Last Filed: 09/16/17 13:41> Subjective - Date & Time of Evaluation Date of Evaluation: 09/16/17 Time of Evaluation: 11:32 - Subjective Subjective: Cardiology Progress Note- Dr. Cortés's service Patient seen and examined in no acute distress. Patient waves upon greeting. Patient not always able to directly follow commands. Patient not able to respond to ROS at this time due to his presentation. Objective - Vital Signs/Intake and Output Vital Signs (last 24 hours): Temp Pulse Resp BP Pulse Ox 98.8 F 99 H 22 126/33 L 98 09/16/17 04:00 09/16/17 04:11 09/16/17 04:11 09/16/17 04:11 09/16/17 04:11 Intake and Output: 09/16/17 09/16/17 06:59 18:59 Intake Total 650 Balance 650 - Medications Medications: Current Medications Acetylcysteine (Acetylcysteine 20%) 4 ml INH RQ6 [facility] Last Admin: 09/16/17 01:18 Dose: 4 ml Albuterol/Ipratropium (Duoneb 3 Mg/0.5 Mg (3 Ml) Ud) 3 ml INH RQ6 [facility] Last Admin: 09/16/17 01:18 Dose: 3 ml Apixaban (Eliquis) 2.5 mg PO BID [facility] Last Admin: 09/15/17 17:43 Dose: 2.5 mg Aspirin (Aspirin Chewable) 81 mg PO DAILY [facility] Last Admin: 09/15/17 10:02 Dose: 81 mg Epoetin Chencho (Procrit) 10,000 unit IV [facility] Last Admin: 09/14/17 15:15 Dose: 10,000 unit Famotidine (Pepcid) 20 mg PO DAILY [facility] Last Admin: 09/15/17 10:03 Dose: 20 mg Fluconazole (Diflucan) 200 mg PO DAILY [facility] Last Admin: 09/15/17 11:53 Dose: 200 mg Vancomycin HCl 1 gm/ Sodium (Chloride) 250 mls @ 166.7 mls/hr IVPB [facility] Last Admin: 09/14/17 17:40 Dose: 166.7 mls/hr Norepinephrine Bitartrate 4 mg (/ Dextrose) 254 mls @ 15.24 mls/hr IV .[id number] PRN; Protocol; 4 MCG/MIN PRN Reason: TITRATE PER MD ORDER Last Titration: 09/14/17 18:30 Dose: 0 mcg/min, 0 mls/hr Meropenem 500 mg/ Sodium (Chloride) 100 mls @ 200 mls/hr IVPB Q12H [facility] Last Admin: 09/15/17 23:04 Dose: 200 mls/hr Insulin Aspart (Novolog) 0 unit SC Q6 [facility] PRN Reason: Protocol Last Admin: 09/16/17 07:00 Dose: 2 unit Insulin Detemir (Levemir) 43 unit SC Q12 [facility] Last Admin: 09/15/17 21:18 Dose: 43 unit Lactobacillus Acidophilus (Bacid Acidophilus) 1 cap PO BID [facility] Last Admin: 09/15/17 17:43 Dose: 1 cap Metoprolol Tartrate (Lopressor) 50 mg PO BID [facility] Last Admin: 09/15/17 17:43 Dose: 50 mg Rosuvastatin Calcium (Crestor) 10 mg PO HS [facility] Last Admin: 08/26/17 22:41 Dose: 10 mg Sevelamer Carbonate (Renvela) 1.6 gm GT TIDCC [facility] Last Admin: 09/15/17 17:43 Dose: 1.6 gm Trimethoprim/Sulfamethoxazole (Sulfatrim Pediatric Susp) 10 ml PO Q12 [facility] Last Admin: 09/15/17 21:19 Dose: 10 ml - Labs Labs: 09/15/17 06:23 09/15/17 06:23 PT 13.9 SECONDS (9.7-12.2) H 08/24/17 06:08 INR 1.2 08/24/17 06:08 APTT 55 SECONDS (21-34) H D 08/17/17 06:12 - Constitutional Appears: Non-toxic, No Acute Distress - Head Exam Head Exam: ATRAUMATIC - Eye Exam Eye Exam: EOMI - Neck Exam Neck Exam: Full ROM - Cardiovascular Exam Cardiovascular Exam: Irregular Rhythm, +S1, +S2 - GI/Abdominal Exam GI & Abdominal Exam: Soft, Normal Bowel Sounds - Extremities Exam Extremities Exam: Full ROM - Neurological Exam Neurological Exam: Altered - Psychiatric Exam Psychiatric exam: Flat Affect - Skin Skin Exam: Dry, Warm Assessment and Plan (1) Chest pain Status: Acute (2) CHF exacerbation Status: Chronic (3) Pneumonia Status: Acute (4) CAD (coronary artery disease) Status: Chronic (5) HTN (hypertension) Status: Chronic (6) CKD (chronic kidney disease) Status: Chronic (7) Diabetes mellitus Status: Chronic (8) HLD (hyperlipidemia) Status: Chronic (9) Constipation Status: Chronic (10) Anemia Status: Chronic (11) History of DVT (deep vein thrombosis) Status: Acute (12) Prophylactic measure Status: Acute - Assessment and Plan (Free Text) Assessment: SIRS Hypotensive event with tachycardia yesterday Considerations for sacral wound. Concepcion cultures- Wound cultures grew out Vancomycin Resistant Enteroccoci, Urine cuture- yeast species Has undergone wound debridement per Surgery Atrial Fibrillation Intermittent Rate controlled. On Metoprolol 50 mg PO BID, Eliquis 2.5 mg PO BID CAD, chest pain -No current plans for cardiac cath (acute respiratory failure and elevated Cr) , history of abnormal stress test -Elevated Troponin likely due to chest compressions during cardiac arrest 08/10 -No acute ST changes on EKG -Continue ASA, Crestor, Metoprolol. -Echocardiogram from 08/08/17 showed left ventricle systolic function is severely impaired. EF: 25-30%; global hypokinesis of LV mild AR. MR is moderate. Moderate-severe pulmonary hypertension Systolic CHF exacerbation -CXR 09/09: Diminished bilateral basilar airspace disease; stable cardiomegaly -BNP 80721 on 08/06/17 -Continue ASA, Crestor, Metoprolol -Echocardiogram from 08/08/17 showed left ventricle systolic function is severely impaired. EF: 25-30%; global hypokinesis of LV mild AR. MR is moderate. Moderate-severe pulmonary hypertesnion Dobutamine discontinued in light of atrial flutter-type episodes Diabetes Mellitus ISS Continue to monitor ESRD on HD Currently on HD On Procrit and Phoslo Nephro on the case Prophylaxis Pepcid 20 mg PO daily Eliquis 2.5 mg PO BID (Renal precautions) Disposition Awaiting Transfer to LTAC Discussed with attending. All management and planning per Dr. Cortés <Sina Cortés - Last Filed: 09/16/17 20:41> Objective - Vital Signs/Intake and Output Vital Signs (last 24 hours): Temp Pulse Resp BP Pulse Ox 99.6 F 101 H 18 117/48 L 100 09/16/17 20:00 09/16/17 20:02 09/16/17 20:02 09/16/17 20:02 09/16/17 20:00 Intake and Output: 09/16/17 09/17/17 18:59 06:59 Intake Total 830.0 50 Output Total 1500 Balance -670.0 50 - Medications Medications: Current Medications Acetylcysteine (Acetylcysteine 20%) 4 ml INH RQ6 [facility] Last Admin: 09/16/17 19:05 Dose: 4 ml Albuterol/Ipratropium (Duoneb 3 Mg/0.5 Mg (3 Ml) Ud) 3 ml INH RQ6 [facility] Last Admin: 09/16/17 19:06 Dose: 3 ml Apixaban (Eliquis) 2.5 mg PO BID [facility] Last Admin: 09/16/17 17:11 Dose: 2.5 mg Aspirin (Aspirin Chewable) 81 mg PO DAILY [facility] Last Admin: 09/16/17 09:27 Dose: 81 mg Epoetin Chencho (Procrit) 10,000 unit IV MWF [facility] Last Admin: 09/16/17 09:32 Dose: 10,000 unit Famotidine (Pepcid) 20 mg PO DAILY [facility] Last Admin: 09/16/17 09:33 Dose: 20 mg Fluconazole (Diflucan) 200 mg PO DAILY [facility] Last Admin: 09/16/17 11:20 Dose: Not Given Norepinephrine Bitartrate 4 mg (/ Dextrose) 254 mls @ 15.24 mls/hr IV .[id number] PRN; Protocol; 4 MCG/MIN PRN Reason: TITRATE PER MD ORDER Last Titration: 09/14/17 18:30 Dose: 0 mcg/min, 0 mls/hr Tigecycline 50 mg/ Dextrose 100 mls @ 100 mls/hr IVPB Q12H [facility] Insulin Aspart (Novolog) 0 unit SC Q6 [facility] PRN Reason: Protocol Last Admin: 09/16/17 18:13 Dose: 4 unit Insulin Detemir (Levemir) 43 unit SC Q12 [facility] Last Admin: 09/16/17 11:36 Dose: Not Given Lactobacillus Acidophilus (Bacid Acidophilus) 1 cap PO BID [facility] Last Admin: 09/16/17 17:18 Dose: 1 cap Metoprolol Tartrate (Lopressor) 50 mg PO BID [facility] Last Admin: 09/16/17 17:02 Dose: Not Given Rosuvastatin Calcium (Crestor) 10 mg PO HS [facility] Last Admin: 08/26/17 22:41 Dose: 10 mg Sevelamer Carbonate (Renvela) 1.6 gm GT TIDCC [facility] Last Admin: 09/16/17 17:11 Dose: 1.6 gm Trimethoprim/Sulfamethoxazole (Sulfatrim Pediatric Susp) 10 ml PO Q12 [facility] Last Admin: 09/16/17 09:29 Dose: 10 ml - Labs Labs: 09/16/17 08:07 09/16/17 08:07 PT 13.9 SECONDS (9.7-12.2) H 08/24/17 06:08 INR 1.2 08/24/17 06:08 APTT 55 SECONDS (21-34) H D 08/17/17 06:12 Assessment and Plan - Assessment and Plan (Free Text) Assessment: Patient seen and evaluated with the medical education manager Plan of minnie as documented
[2017-09-16 08:20] LABS: BASO # 0.1 K/uL (0.0-0.2); BASO % 0.7 % (0.0-2.0); EOS # 0.6 K/uL (0.0-0.7); EOS % 5.2 % (0.0-4.0); HEMATOCRIT 26.8 % (35.0-51.0); LYMPH # 2.1 K/uL (1.0-4.3); LYMPH % 17.5 % (20.0-40.0); MEAN CELL VOLUME 76.9 fL (80.0-94.0); MEAN CORPUSCULAR HEMOGLOBIN 24.8 pg (27.0-31.0); MEAN CORPUSCULAR HGB CONC 32.2 g/dL (33.0-37.0); MEAN PLATELET VOLUME 7.9 fL (7.2-11.7); MONO # 0.8 K/uL (0.0-0.8); MONO % 6.9 % (0.0-10.0); NRBC % 0.1 % (0.0-2.0); RED CELL DISTRIBUTION WIDTH 23.5 % (11.5-14.5); WHITE BLOOD COUNT 11.9 K/uL (4.8-10.8)
[2017-09-16 08:39] LABS: POTASSIUM 4.1 mmol/L (3.6-5.2)
[2017-09-16 08:41] LABS: ALB/GLOB RATIO 0.7 (1.0-2.1); BILIRUBIN,TOTAL 0.5 mg/dL (0.2-1.3); TOTAL PROTEIN 7.1 g/dL (6.3-8.3)
[2017-09-16 08:42] LABS: CALCIUM 8.7 mg/dl (8.6-10.4); MAGNESIUM 2.6 mg/dL (1.6-2.3); PHOSPHOROUS 3.6 mg/dL (2.5-4.5)
[2017-09-16] MEDS: Lactobacillus Acidophilus 500 MU Cap PO SCH ×2 (09:26→17:18)
[2017-09-16] MEDS: Tmp-Smz 200-40mg/5 ml Oral Sus(120 ml) PO SCH ×2 (09:29→21:28)
[2017-09-16] MEDS: Sevelamer Carb 0.8 gm/Packet GT SCH ×3 (09:29→17:11)
[2017-09-16] MEDS: Epoetin Alfa 10,000 unit/ml Dialysis IV SCH (09:32)
--- NOTE | 2017-09-16 10:15 | CP.PCM.PN ---
Subjective - Date & Time of Evaluation Date of Evaluation: 09/16/17 Time of Evaluation: 10:11 - Subjective Subjective: Surgery Progress Note For Dr. Bay HPI: Patient seen and examined at bedside. Patient seems more awake and aware. Trach. No ROS attainable. Objective - Vital Signs/Intake and Output Vital Signs (last 24 hours): Temp Pulse Resp BP Pulse Ox 98.3 F 105 H 13 108/50 L 95 09/16/17 08:48 09/16/17 09:18 09/16/17 09:18 09/16/17 09:18 09/16/17 09:18 Intake and Output: 09/16/17 09/16/17 06:59 18:59 Intake Total 750 157.5 Balance 750 157.5 - Medications Medications: Current Medications Acetylcysteine (Acetylcysteine 20%) 4 ml INH RQ6 [facility] Last Admin: 09/16/17 08:15 Dose: 4 ml Albuterol/Ipratropium (Duoneb 3 Mg/0.5 Mg (3 Ml) Ud) 3 ml INH RQ6 [facility] Last Admin: 09/16/17 08:15 Dose: 3 ml Apixaban (Eliquis) 2.5 mg PO BID [facility] Last Admin: 09/16/17 09:27 Dose: 2.5 mg Aspirin (Aspirin Chewable) 81 mg PO DAILY [facility] Last Admin: 09/16/17 09:27 Dose: 81 mg Epoetin Chencho (Procrit) 10,000 unit [place] [facility] Last Admin: 09/16/17 09:32 Dose: 10,000 unit Famotidine (Pepcid) 20 mg PO DAILY [facility] Last Admin: 09/16/17 09:33 Dose: 20 mg Fluconazole (Diflucan) 200 mg PO DAILY [facility] Last Admin: 09/15/17 11:53 Dose: 200 mg Vancomycin HCl 1 gm/ Sodium (Chloride) 250 mls @ 166.7 mls/hr [place]PB [facility] Last Admin: 09/16/17 09:32 Dose: 166.7 mls/hr Norepinephrine Bitartrate 4 mg (/ Dextrose) 254 mls @ 15.24 mls/hr IV .[id number] PRN; Protocol; 4 MCG/MIN PRN Reason: TITRATE PER MD ORDER Last Titration: 09/14/17 18:30 Dose: 0 mcg/min, 0 mls/hr Meropenem 500 mg/ Sodium (Chloride) 100 mls @ 200 mls/hr IVPB Q12H [facility] Last Admin: 09/15/17 23:04 Dose: 200 mls/hr Insulin Aspart (Novolog) 0 unit SC Q6 [facility] PRN Reason: Protocol Last Admin: 09/16/17 07:00 Dose: 2 unit Insulin Detemir (Levemir) 43 unit SC Q12 [facility] Last Admin: 09/15/17 21:18 Dose: 43 unit Lactobacillus Acidophilus (Bacid Acidophilus) 1 cap PO BID [facility] Last Admin: 09/16/17 09:26 Dose: 1 cap Metoprolol Tartrate (Lopressor) 50 mg PO BID [facility] Last Admin: 09/16/17 09:28 Dose: Not Given Rosuvastatin Calcium (Crestor) 10 mg PO HS [facility] Last Admin: 08/26/17 22:41 Dose: 10 mg Sevelamer Carbonate (Renvela) 1.6 gm GT TIDCC [facility] Last Admin: 09/16/17 09:29 Dose: 1.6 gm Trimethoprim/Sulfamethoxazole (Sulfatrim Pediatric Susp) 10 ml PO Q12 [facility] Last Admin: 09/16/17 09:29 Dose: 10 ml - Labs Labs: 09/16/17 08:07 09/16/17 08:07 PT 13.9 SECONDS (9.7-12.2) H 08/24/17 06:08 INR 1.2 08/24/17 06:08 APTT 55 SECONDS (21-34) H D 08/17/17 06:12 - Constitutional Appears: Chronically Ill - Head Exam Head Exam: ATRAUMATIC, NORMAL INSPECTION, NORMOCEPHALIC - Eye Exam Eye Exam: EOMI Additional comments: Trach - Respiratory Exam Respiratory Exam: Clear to Ausculation Bilateral, NORMAL BREATHING PATTERN - Cardiovascular Exam Cardiovascular Exam: REGULAR RHYTHM - GI/Abdominal Exam GI & Abdominal Exam: Soft, Normal Bowel Sounds. absent: Distended, Tenderness - Extremities Exam Extremities Exam: absent: Joint Swelling, Tenderness - Back Exam Additional comments: [id number] sacral decub with no necrotic tissue present. Dressing chaged at bedside. No active bleeding. Stage 3 - Neurological Exam Neurological Exam: Alert, Awake - Skin Skin Exam: Dry, Intact, Normal Color, Warm Assessment and Plan - Assessment and Plan (Free Text) Assessment: 77M with Sacral decub Plan: * continue daily dressing change; wet to dry with betadine * further reccs per Dr. Bay * Medical managment per ICU Sina White PGY1
[2017-09-16] MEDS: Insulin Detemir 100 units/ml Vial (Levemir) SC SCH ×2 (11:36→21:28)
[2017-09-16] MEDS: Meropenem 500 MG in Sodium Chloride 0.9% 100 ML IVPB SCH (12:34)
--- NOTE | 2017-09-16 12:34 | CP.PCM.PN ---
Subjective - Date & Time of Evaluation Date of Evaluation: 09/16/17 Time of Evaluation: 12:32 - Subjective Subjective: s/p dialysis now UF 1500ml BP low with dialysis- will decrease UF goal awake, on trach cannot obtain ROS Objective - Vital Signs/Intake and Output Vital Signs (last 24 hours): Temp Pulse Resp BP Pulse Ox 98.1 F 108 H 13 119/69 100 09/16/17 12:00 09/16/17 12:17 09/16/17 12:17 09/16/17 12:17 09/16/17 12:17 Intake and Output: 09/16/17 09/16/17 06:59 18:59 Intake Total 750 330.0 Balance 750 330.0 - Medications Medications: Current Medications Acetylcysteine (Acetylcysteine 20%) 4 ml INH RQ6 [facility] Last Admin: 09/16/17 08:15 Dose: 4 ml Albuterol/Ipratropium (Duoneb 3 Mg/0.5 Mg (3 Ml) Ud) 3 ml INH RQ6 [facility] Last Admin: 09/16/17 08:15 Dose: 3 ml Apixaban (Eliquis) 2.5 mg PO BID [facility] Last Admin: 09/16/17 09:27 Dose: 2.5 mg Aspirin (Aspirin Chewable) 81 mg PO DAILY [facility] Last Admin: 09/16/17 09:27 Dose: 81 mg Epoetin Chencho (Procrit) 10,000 unit IV MWF [facility] Last Admin: 09/16/17 09:32 Dose: 10,000 unit Famotidine (Pepcid) 20 mg PO DAILY [facility] Last Admin: 09/16/17 09:33 Dose: 20 mg Fluconazole (Diflucan) 200 mg PO DAILY [facility] Last Admin: 09/16/17 11:20 Dose: Not Given Norepinephrine Bitartrate 4 mg (/ Dextrose) 254 mls @ 15.24 mls/hr IV .[id number] PRN; Protocol; 4 MCG/MIN PRN Reason: TITRATE PER MD ORDER Last Titration: 09/14/17 18:30 Dose: 0 mcg/min, 0 mls/hr Meropenem 500 mg/ Sodium (Chloride) 100 mls @ 200 mls/hr IVPB Q12H [facility] Last Admin: 09/15/17 23:04 Dose: 200 mls/hr Tigecycline 100 mg/ Sodium (Chloride) 100 mls @ 100 mls/hr IVPB ONCE ONE Stop: 09/16/17 12:59 Tigecycline 50 mg/ Dextrose 100 mls @ 100 mls/hr IVPB Q12H [facility] Insulin Aspart (Novolog) 0 unit SC Q6 [facility] PRN Reason: Protocol Last Admin: 09/16/17 07:00 Dose: 2 unit Insulin Detemir (Levemir) 43 unit SC Q12 [facility] Last Admin: 09/16/17 11:36 Dose: Not Given Lactobacillus Acidophilus (Bacid Acidophilus) 1 cap PO BID [facility] Last Admin: 09/16/17 09:26 Dose: 1 cap Metoprolol Tartrate (Lopressor) 50 mg PO BID [facility] Last Admin: 09/16/17 09:28 Dose: Not Given Rosuvastatin Calcium (Crestor) 10 mg PO HS [facility] Last Admin: 08/26/17 22:41 Dose: 10 mg Sevelamer Carbonate (Renvela) 1.6 gm GT TIDCC [facility] Last Admin: 09/16/17 09:29 Dose: 1.6 gm Trimethoprim/Sulfamethoxazole (Sulfatrim Pediatric Susp) 10 ml PO Q12 [facility] Last Admin: 09/16/17 09:29 Dose: 10 ml - Labs Labs: 09/16/17 08:07 09/16/17 08:07 PT 13.9 SECONDS (9.7-12.2) H 08/24/17 06:08 INR 1.2 08/24/17 06:08 APTT 55 SECONDS (21-34) H D 08/17/17 06:12 - Constitutional Appears: No Acute Distress, Chronically Ill - Head Exam Head Exam: ATRAUMATIC, NORMAL INSPECTION - Eye Exam Eye Exam: EOMI, Normal appearance - Neck Exam Neck Exam: Normal Inspection. absent: Tenderness - Respiratory Exam Respiratory Exam: Clear to Ausculation Bilateral, Respiratory Distress - Cardiovascular Exam Cardiovascular Exam: REGULAR RHYTHM, +S1 - GI/Abdominal Exam GI & Abdominal Exam: Soft. absent: Tenderness - Extremities Exam Extremities Exam: Normal Inspection. absent: Tenderness - Neurological Exam Neurological Exam: Altered, Motor Sensory Deficit - Skin Skin Exam: Dry, Warm Assessment and Plan (1) Acute on chronic renal failure Status: Resolved (2) CAD (coronary artery disease) Status: Chronic (3) CHF exacerbation Status: Chronic (4) Type 2 diabetes mellitus with diabetic nephropathy Status: Acute (5) Cardiorenal disease Status: Acute (6) ESRD (end stage renal disease) Status: Acute - Assessment and Plan (Free Text) Plan: Continue dialysis MWF Lower UF goal Same PEG feeds Same other care await LTC transfer
--- NOTE | 2017-09-16 13:22 | CP.PCM.PN ---
Subjective - Date & Time of Evaluation Date of Evaluation: 09/16/17 Time of Evaluation: 09:20 - Subjective Subjective: patient seen and examined. Getting hemodialysis Started on dopamine for hypotension Response to vocal command Tracheostomy changed to fenestrated one Afebrile Status post debridement Objective - Vital Signs/Intake and Output Vital Signs (last 24 hours): Temp Pulse Resp BP Pulse Ox 99.2 F 103 H 12 119/69 99 09/16/17 12:20 09/16/17 12:20 09/16/17 12:20 09/16/17 12:20 09/16/17 12:20 Intake and Output: 09/16/17 09/16/17 06:59 18:59 Intake Total 750 330.0 Balance 750 330.0 - Medications Medications: Current Medications Acetylcysteine (Acetylcysteine 20%) 4 ml INH RQ6 [facility] Last Admin: 09/16/17 08:15 Dose: 4 ml Albuterol/Ipratropium (Duoneb 3 Mg/0.5 Mg (3 Ml) Ud) 3 ml INH RQ6 [facility] Last Admin: 09/16/17 08:15 Dose: 3 ml Apixaban (Eliquis) 2.5 mg PO BID [facility] Last Admin: 09/16/17 09:27 Dose: 2.5 mg Aspirin (Aspirin Chewable) 81 mg PO DAILY [facility] Last Admin: 09/16/17 09:27 Dose: 81 mg Epoetin Chencho (Procrit) 10,000 unit IV MWF [facility] Last Admin: 09/16/17 09:32 Dose: 10,000 unit Famotidine (Pepcid) 20 mg PO DAILY [facility] Last Admin: 09/16/17 09:33 Dose: 20 mg Fluconazole (Diflucan) 200 mg PO DAILY [facility] Last Admin: 09/16/17 11:20 Dose: Not Given Norepinephrine Bitartrate 4 mg (/ Dextrose) 254 mls @ 15.24 mls/hr IV .[id number] PRN; Protocol; 4 MCG/MIN PRN Reason: TITRATE PER MD ORDER Last Titration: 09/14/17 18:30 Dose: 0 mcg/min, 0 mls/hr Meropenem 500 mg/ Sodium (Chloride) 100 mls @ 200 mls/hr IVPB Q12H [facility] Last Admin: 09/16/17 12:34 Dose: 200 mls/hr Tigecycline 50 mg/ Dextrose 100 mls @ 100 mls/hr IVPB Q12H [facility] Insulin Aspart (Novolog) 0 unit SC Q6 [facility] PRN Reason: Protocol Last Admin: 09/16/17 07:00 Dose: 2 unit Insulin Detemir (Levemir) 43 unit SC Q12 [facility] Last Admin: 09/16/17 11:36 Dose: Not Given Lactobacillus Acidophilus (Bacid Acidophilus) 1 cap PO BID [facility] Last Admin: 09/16/17 09:26 Dose: 1 cap Metoprolol Tartrate (Lopressor) 50 mg PO BID [facility] Last Admin: 09/16/17 09:28 Dose: Not Given Rosuvastatin Calcium (Crestor) 10 mg PO HS [facility] Last Admin: 08/26/17 22:41 Dose: 10 mg Sevelamer Carbonate (Renvela) 1.6 gm GT TIDCC [facility] Last Admin: 09/16/17 09:29 Dose: 1.6 gm Trimethoprim/Sulfamethoxazole (Sulfatrim Pediatric Susp) 10 ml PO Q12 [facility] Last Admin: 09/16/17 09:29 Dose: 10 ml - Labs Labs: 09/16/17 08:07 09/16/17 08:07 PT 13.9 SECONDS (9.7-12.2) H 08/24/17 06:08 INR 1.2 08/24/17 06:08 APTT 55 SECONDS (21-34) H D 08/17/17 06:12 - Head Exam Head Exam: ATRAUMATIC, NORMOCEPHALIC - Eye Exam Eye Exam: Normal appearance - ENT Exam ENT Exam: Mucous Membranes Moist - Neck Exam Neck Exam: Normal Inspection - Respiratory Exam Respiratory Exam: Decreased Breath Sounds - Cardiovascular Exam Cardiovascular Exam: REGULAR RHYTHM - GI/Abdominal Exam GI & Abdominal Exam: Soft, Normal Bowel Sounds Assessment and Plan (1) Cardiac arrest Status: Acute (2) Pneumonia Status: Acute (3) History of DVT (deep vein thrombosis) Status: Acute (4) CKD (chronic kidney disease) Status: Chronic (5) Acute on chronic renal failure Status: Resolved (6) CHF (congestive heart failure) Status: Acute
--- NOTE | 2017-09-16 16:21 | CP.PCM.PN ---
Subjective - Date & Time of Evaluation Date of Evaluation: 09/16/17 Time of Evaluation: 16:00 - Subjective Subjective: Hospitalist Progress Note Patient was seen and examined at 4 PM 09/16/17 554 A. 77 year old male with extensive medical history (please see Assessment and Plans below) was admitted on 08/06/17 for evaluation of SOB and Chest Pain. He was planned for Cardiac Catheterization on 08/09/17. Patient then had Acute Respiratory Failure and had to be intubated and placed on vent. He is S/P Tracheostomy 08/22/17 and PEG Tube Placement 08/25/17. Please see details below. ROS are not possible as although patient is awake he is not answering (not shaking his head yes or no) Exam: - Head Exam Head Exam: NORMAL INSPECTION - Eye Exam Eye Exam: could not evaluate EOM due to patient's current status Pupil Exam: round, equal, and reactive to light - Respiratory Exam Respiratory Exam: Decreased Breath Sounds bilateral lower lung buchanan but limited due to lack of patient participation Additional comments: Trach Collar - Cardiovascular Exam Cardiovascular Exam: REGULAR RHYTHM, +S1, +S2 - GI/Abdominal Exam GI & Abdominal Exam: Distended, Soft, BSx4 much improved, could not palpate liver and spleen, PEG Tube Insertion Site LUQ without evidence of cellutlitis. absent: Firm, Guarding, Rigid, Tenderness, Rebound Additional comments: obese habitus, Peg Tube insertion site without signs of cellulitis - Extremities Exam Extremities Exam: Normal Capillary Refill, Pedal Edema. absent: Tenderness Additional comments: Prevalon boots b/l - Neurological Exam Additional comments: Could not be performed due to lack of patient participation - Skin Skin Exam: Unstageable Sacral Ulcer S/P Debridement. Shallow Ulcer Left outer ear that is healed. Right heal blister without surrounding signs of cellulitis (1) Acute Respiratory Failure ARDS Cardiac Arrest Pulmonary Edema Nonstemi Assessment and Plan: * Code Blue on 08/10: asystole, cardiopulmonary resuscitative measures initiated , requiring 3 epis, bicarbonate, ROSC achieved and intubated and brought to the ICU for further management; Patient in the ICU from 08/10 until present. * Pulmonary: Dr Mena (Dr. Jeffers covering until 09/04/17)-->help appreciated * Cardiology: Dr. Cortés on board-->help appreciated * GI (Dr. Wills) on board-->help appreciated * S/P Tracheostomy 08/22 * S/P Peg tube placement 08/25 * s/p insertion of right posterior chest tube 08/19-->removed 08/24/17 * There was consideration for possible thoracentesis of left side pleural effusion, evaluated by IR, there is no fluid to drain per Dr. Gross * Chest xray (08/26): right arm PICC is seen with the tip of distal subclavian vein. PICC may be used * Per cardiology, * Restart Aspirin 81mg PO daily * Patient does not need Plavix at this time * Recommend for Eliquis 2.5mg PO BID for atrial flutter * 08/27: patient is pending LTAC, he went eventually need cardiac catheterization when he has stabilized. Held statin secondary to elevated LFTs. Discussed with Dr. Cortés, lowered Amiodarone 200mg PO daily * 08/28: patient is pending LTAC, he went eventually need cardiac catheterization when he has stabilized. Liver function tests improving * 08/29: Engine Lathe Set Up Operator Nehal has sent request to insurance for authorization for LTAC-->pending * 09/06: pending social work/case management approval for LTAC * 09/07: pending social work/case management approval for LTAC * 09/08: Unable to get approval for LTAC; pending other options * 09/09: Transferred from step-down ICU to the floors * 09/13: Trasnferred back to ICU S/P Rapid Response for low blood pressure * 09/14: Currently on Acetylcysteine 20 % Neb Q6H and Duoneb Q6H * 09/15: Passy Flex Trach placed by Wood Floor Refinisher (2) Abnormal Stress Test History of AICD History of Coronary Artery Disease Assessment and Plan: * Cardiology (Dr. Cortés) on board-->help appreciated * TSH: 1.16; T4: 1.53 * Echocardiogram (08/08/17): left ventricle systolic function is severely impaired. EF: 25-30%; global hypokinesis of left ventricle mild aortic regurgitation. Mitral regurgitation is moderate. Moderate-severe pulmonary hypertension * Plan was for cardiac catheterization; delayed due to acute renal failure; Attempted gentle hydration and mucomyst on 08/09 to optimize prior to cath * On 08/10, patient was in asystole, ACLS protocol, ROSC achieved, intubated and transfered to the ICU. Patient in acute pulmonary edema. * Patient hospitalized in the ICU since 08/10/17 to present. * Medications: * Aspirin 81mg PO daily * Plavix d/c by cardiology * Lopressor 50mg PO bid * d/c Crestor 10mg POqHS secondary to rise in LFTS 08/27--->monitor LFTs daily * ARB d/c secondary to acute renal failure * 08/27: patient is pending LTAC, he went eventually need cardiac catheterization when he has stabilized. Held statin secondary to elevated LFTs. Discussed with Dr. Cortés, lowered Amiodarone 200mg PO daily * 08/28: He will eventually need cardiac catheterization when he has stabilized. Liver function tests improving. Statin is on hold (3) Atrial flutter Assessment and Plan: * Cardiology (Dr. Cortés) on board-->help appreciated * Refractory to Lopressor/Cardizem IVP * Eliquis 2.5mg PO bid * Amiodarone bolus-->Amiodarine drip on 08/24-->converted to Amiodarone 200mg PO TID on 08/26 and this was decreased to 200 mg 1x/day due to increased LFTs * 08/27: Discussed with Dr. Cortés, will lower Amiodarone 200mg PO daily and monitor LFTs. Statin held and tylenol d/c * 08/29: patient is pending LTAC, he will eventually need cardiac catheterization when he has stabilized. Liver function tests improving. Statin is on hold due to the elevated LFTs * 08/30: Cardiology discontinued the Amiodarone * 09/07: Held eliquis; will need to resume * 09/09: Eliquis resumed, off Amiodarone Status: Acute (4) Acute on Chronic Systolic CHF exacerbation Assessment and Plan: * Cardiology (Dr. Cortés) on board-->help appreciated * Transferred to the ICU on 08/10 following cardiac arrest and intubation. * Echocardiogram (08/08/17): left ventricular systolic function is severely impaired. EF: 25-30%; global hypokinesis of left ventricle mild aortic regurgitation. Mitral regurgitation is moderate. Moderate-severe pulmonary hypertension * Medications: * Aspirin 81mg PO daily * Plavix d/c by cardiology * Lopressor 50mg PO bid * d/c Crestor 10mg POqHS on 08/27 secondary to rise in LFTs * ARB d/c secondary to acute renal failure Status: Acute (5) Leukocytosis Assessment and Plan: * Patient's white count downtrending * Pleural Fluid 08/19/17 did not show any growth * Blood cultures (08/26): no growth X5 days * UA and urine culture (08/27): Urine Culture showed Yeast Species. * Patient has elevated LFTs-->did not start anti-fungal in light of LFTs New: * 09/05/17 Blood: gram positive cocci-->pending speciation * 09/05/17 Blood: no growth after 4 days * 09/07/17 Legionella Culture: negative * 09/07/17 Mycobacteria: negative * 09/07/17 Sputum: Enterocloace Bacter; yeast * 09/07/17 Blood: negative X 48 hours * 09/07/17 Blood: negative X 48 hours * 09/06: stool culture pending; has not had diarrhea or bowel movement * 09/07: Dr. Zimmer (covering Dr. Lawrence) to see the patient given elevated procalcitonin * Blood Culture 09/13/17 is negative to date and Urine Culture 09/13/17 showed Yeast Species * 09/14: Could this be secondary to the Septic Shock? Secondary to Osteomyelitis of the Sacrum? 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) and Meropenem 500 mg IV Q8H (09/13/17), Diflucan 200 mg PO 1x/day (09/13/17), Bactrim 10 mL PO Q12H ( through 09/16/17), Tigecycline 50 mg IV Q12H (09/16/17 started because of VRE on Sacrum Wound Culture 09/14/17) * ESR 09/14/17 elevated at 89 * Bone Scan to be performed today 09/16/17 to check for Osteomyelitis at the Sacrum * Antibiotics as of 09/16/17: Meropenem 500 mg IV Q12H (09/13/17: which will cover the Enterbacter in the Sputum 09/07/17 and the possibility of Sacral Osteomyelitis) and Tigecycline (09/16/17: which will cover the VRE in Sacral Wound Culture 09/14/17 and the possibility of Sacral Osteomyelitis), Diflucan 200 mg PO 1x/day (09/13/17: which will cover with Yeast in the Sputum, Urine, and Sacral Wound Culture) Status: Acute (6) Pneumonia Assessment and Plan: * Pulmonary (Dr. Mena) on board-->help appreciated; Dr. Jeffers covering while Dr. Mena away * Infectious Disease (Dr. Lawrence)-->help appreciated * Chest xray (08/26): right arm PICC is seen with the tip of distal subclavian vein. PICC may be used * Rapid A strep, Influenza A and B studies, Urine Legionella, Mycoplasma studies = Negative * Florastor 250mg PO bid * 08/07/17: +Strep Pneumoniae in the urine * Meropenem 500mg IV Q 8 hours (08/14/17 through 08/18/17) and Zosyn 2.25 mg IV Q6H (08/13/17 through 08/18/17) * Cefepime 1 gm IV Q24H: started on 08/19/17 and was discontinued by ID Dr. Lawrence on 08/30/17: monitor vitals and labs * s/p right posterior chest tube 08/19-08/24 * Sputum Culture 08/19/17 shows No growth * Pleural fluid 08/19/17: No growth * 09/07/17 Sputum: Enterocloace Bacter and Yeast Species: See Antibiotic treatment in previous Assessment and Plan * Sputum 09/10/17 shows NO AFB Status: Acute (7) HTN (hypertension) Assessment and Plan: * Lopressor 50mg PO bid * Lisinopril 5mg PO daily Status: Chronic (8) CKD (chronic kidney disease) on Dialysis Assessment and Plan: * Dr. Miranda (nephrology) consulted on the case * Hx of CKD-->Started on dialysis 08/15/17 * Kurtis catheter placed and removed 08/22 * s/p Right Chest Permcath 08/22 * Patient is on dialysis M-W-F; oliguric * Phoslo 1334mg GT TID * Epoetin 10,000 unit IV MWF Status: Acute (9) Diabetes mellitus Assessment and Plan: * Accuchecks Q6H * HgbA1c 8.4 * Started peg feedings on 08/26/17 * Nepro-->50 ml/hour but this was held 09/13/17 due suspicion of Bowel Obstruction as NO bowel Movement since 09/07/17. This was restarted on after NO obstruction was observed on Obstruction Series 09/13/17 and after multiple bowel movement s/p Fleet Enema 09/13/17 (10) HLD (hyperlipidemia) Assessment and Plan: * 08/27: held Crestor 10 mg PO HS secondary to rise in LFTs * 08/29: Liver function tests improving; waiting to restart statin Status: Chronic (11) Anemia Assessment and Plan: * Heme-oncology (Dr. Giles bender) on board-->help appreciated * Likely iron deficiency anemia based on prior admissions * Ferritin 27.4, Iron 22, TIBC 322, % Saturation 7 * Ferric Sodium Gluconate 125mg IVPB daily (active 08/08-08/16) * Procrit 10,000 units M-W- * Monitor Hgb/Hct: stable Status: Chronic (12) History of DVT (deep vein thrombosis) Assessment and Plan: * Patient was previously on Eliquis for a prior history of DVT. * Repeat dopplers 08/09/17 are negative for DVT * Off Heparin Drip 08/17/17 * Started Eliquis 2.5mg PO BID for atrial flutter and history of DVT Status: Chronic (13) UTI Assessment and Plan: * Infectious disease (Dr. Lawrence) on board-->help appreciated * Exchange jaquez out and repeat urine cultures * Urine Culture 08/12/17 showed Gram Negative Rods: NO identification and NO sensitivities were performed * Meropenem 500mg IV Q 12hours (active since 08/14/17 through 08/18/17) to cover for UTI per ID * Repeat Urine Culture 08/18/17 shows NO growth * 08/25: reculture in light of leukocytosis * 08/27: pending urine studies * 08/30: Urine Culture 08/27/17 showed Yeast Species but no antifungal at that time secondary to recent history of Elevated LFTs * Urine Culture 10/17/17 showed Yeast Species: he is on Diflucan Status: Chronic (14) Confusion; Alzheimer's Dementia Assessment and Plan: * Per daughter, patient has been getting bouts of confusion over the past year but appears at baseline. Patient has not seen formal neurology as outpatient per daughter. Per , prior to event, noted Alzheimers' disease dx one year ago * CT head w/o contrast (08/10/17):acute os subacute lacune infarct is not excluded in the left basal ganglia inferiorly with definitive chronic lacune identified in the right basal ganglia superiorly. No acute or subacute lobar brain infarction is appreciable by standard CT criteria. Mild age-related neuro degenerative changes are identifed. No acute intracranial hemorrhage or mass is identified throughout * 08/26: Off Sedation-->patient moves all extremities randomly but does not follow directions * 08/27: off sedation-->patient is very calm, smiles at his * 08/28: off sedation-->patient is very calm Status: Chronic (15) Unstageable Sacral Ulcer, Left Ear Auricle Ulcer, Right Heal Ulcer Assessment and Plan: * Wound care on board * WOUND CARE NOTE (08/26)-->Pt with a sacral unstageable being treated with medihoney. No changes to dimensions at this time. Also, pt favoring Left side of head and has developed a 1x1 serous filled blister on his left ear. Primary nurse placed duoderm on the ear. Wound care nurse left duoderm in place , and recommends leaving it on until it falls off on its own. Pt has been NPO for several days, new peg inserted yesterday. Will be starting glucerna tube feedings later today. Albumin 3.3 * Turn q 2 hours * medihoney on unstageable ulcer * duoderm on left ear aurical ulcer: this is healed as of 09/15/17 * Prevalon Boots for Right Heal Blister 09/13/17 * 09/02/17: examined with Wound Care Nurse Emeka Samuel and periphery of the Sacral Wound is pink with some bleeding however center is still black and therefore still unstageable. Continue spray with Cavelon followed by thick coating with MediHoney followed by covering with OptiFoam once a day. * 09/03/17: Change of sacral ulcer dressing was performed by me with assitance from Nurse Lyman * 09/04/17: 09/03/17: Change of sacral ulcer dressing was performed by me with assistance from ALEXNADRA Unger * Per wound care note (09/07): sacral ulcer is stable per wound care nurse * 09/14/17: Sacral Ulcer is unstageable and area of blackness fills entire circumference. General Surgery consult placed to see if debridement is necessary. Continue Cavelon [place] followed by paulina thick coating of MediHoney followed by covering with OptiFoam. * 09/15/17: Surgery Team debrided Sacral Ulcer and Bone Scan will need to be followed up which will be performed 09/16/17 Status: Acute (16) Elevated LFTs Assessment and Plan: * 08/27: Yina * Discussed with cardiology-->changed amiodarone 200mg PO tid to amiodaron 200mg PO daily * D/C tylenol * Held Statin * patient is also on Rocephin to cover for pneumonia * Will not start antifungal * 08/29: starting to down trending since change in amiodarone dose; awaiting to restart statin * 08/30: continues to trend down. Amiodarone was discontinued * 09/01: AST, ALT, Alk Phos still elevated but stable * 09/02: AST, ALT, Alk Phos still elevated but stable * 09/03: LFTs stable * 09/04: LFTs stable Status: Acute (17). Hx Constipation * Monitor bowel movement * Multiple bowel movements on 09/13/17 and 09/14/17 that are well formed s/p Fleet Enema on 09/13/17 * 09/15/17: NO bowel movement * 09/16/17: Soft pasty bowel movement (18). Prophylactic measure Assessment and Plan: * Pepcid 20mg PO daily * Start Eliquis 2.5mg PO BID * s/p peg placement 08/25 * s/p trachesostomy 08/22 * s/p Permcath placement 08/22 removal Kurtis catheter * s/p right posterior chest tube 08/19-->removed 08/24 * s/p Right Arm PICC 08/26 * (Jovita Serrano): -->number provided to the nurse- ->consented for peg placement; discussed about LTAC 08/26 * Spoke with Dr. Pickard, [place] regarding patient's hospitalization up until this point 08/2609/01/17: Dr. Cullen Barth spoke with the patient's [place] with the assistance of Nurse Beth on 3 tower (as multiple attempts of using Micky indicated that all of the Ethiopian translators were busy) and explained all of the patient's diagnosises. 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 Her ultimate wish is to take patient to [facility] where their children live. I explained to patient that I would not know how that would be coordinated but that the Social Workers/Summer Nanny at LTAC may be of assistance in this regard. I also informed her that I am not aware of any insurance company that would finance this request. She understands that the patient is awaiting insurance approval for LTAC. 09/01/17 and 09/02/17: Dr. Cullen Barth spoke with Commutator Repairer Demetria and we are still awaiting insurance authorization for LTAC placement. 09/05/17: Spoke with nehal, social work administrator, wean trials sent to LTAC pending approval no word yet regarding approval. Ordered for repeat cultures given uptrend in white count. 09/06/17: pending repeat cultures in light of elevated procalcitonin; ID recommended to reculture. Note: patients PICC lined had clogged ports. Red port remains clogged in spite of cath rafaela. Blue port improved after cath rafaela. Possible may need to remove line to r/o infected line. Strong suspicion due to patient's pneumonia given he has thick secretions. 09/07/17: Infectious disease. pending repeat cultures in light of elevated procalcitonin; Note: patients PICC lined had clogged ports. Red port remains clogged in spite of cath rafaela. Blue port improved after cath rafaela. Hip xray negative for acute fracture. There are no noted falls. 09/08/17: Patient denied for LTAC; awaiting for other options from case management/social work. Resident Daniel spoke with Dr. Cortés, patient be transferred under regular bed, when bed is available. Infectious disease on board; Patient started on IV Vancomycin in light of + blood culture. Pending chest xray. 09/09/17: Patient denied for LTAC; awaiting for other options from case management/social work with kamlesh thompson velvet support. Patient started on IV Vancomycin MWF in light of + blood culture. Pending chest xray. F/U sputum with ID. f/u latest blood cultures. 09/13/17: Rapid response for low blood pressure and elevated WBC likely Septic Shock. Started on Levophed, added Meropenem to Vancomycin and 1 dose of Gentamycin given after speaking with ID. Ordered Obstruction Series as no bowel movement since 09/07/17. F/U Shock Panel. Discussed with ICU Resident to arrange for Change of Right Arm Midline line and Trach Collar. 09/14/17: Will await results of Blood Culture 09/13/17 to determine if the Right Arm Midline, Right Chest Perm Cath, and Trach Collar needs to be changed. Spoke with Commutator Repairer Demetria in ICU and patient information has been sent to [facility] (they accept patients on Trach) and she is awaiting to hear back from them before submitting approval request to insurance [employer]. 09/15/17: Passy [place] Trach placed by Wood Floor Refinisher. Surgical Team for debridement of Sacral Ulcer. Spoke with patient's ([place] Denisa [id number]) and explained/updated her on patient condition and obtained consent for sacral ulcer debridement. 09/16/17: Still awaiting performance of Sacral Bone Scan Cullen Barth D.O. Objective - Vital Signs/Intake and Output Vital Signs (last 24 hours): Temp Pulse Resp BP Pulse Ox 99.2 F 103 H 12 119/69 99 09/16/17 12:20 09/16/17 12:20 09/16/17 12:20 09/16/17 12:20 09/16/17 12:20 Intake and Output: 09/16/17 09/16/17 06:59 18:59 Intake Total 750 330.0 Balance 750 330.0 - Medications Medications: Current Medications Acetylcysteine (Acetylcysteine 20%) 4 ml INH RQ6 LUIS FERNANDO Last Admin: 09/16/17 14:00 Dose: 4 ml Albuterol/Ipratropium (Duoneb 3 Mg/0.5 Mg (3 Ml) Ud) 3 ml INH RQ6 LUIS FERNANDO Last Admin: 09/16/17 14:00 Dose: 3 ml Apixaban (Eliquis) 2.5 mg PO BID [facility] Last Admin: 09/16/17 09:27 Dose: 2.5 mg Aspirin (Aspirin Chewable) 81 mg PO DAILY [facility] Last Admin: 09/16/17 09:27 Dose: 81 mg Epoetin Chen[place] (Procrit) 10,000 unit IV MWF [facility] Last Admin: 09/16/17 09:32 Dose: 10,000 unit Famotidine (Pepcid) 20 mg PO DAILY [facility] Last Admin: 09/16/17 09:33 Dose: 20 mg Fluconazole (Diflucan) 200 mg PO DAILY [facility] Last Admin: 09/16/17 11:20 Dose: Not Given Norepinephrine Bitartrate 4 mg (/ Dextrose) 254 mls @ 15.24 mls/hr IV .[id number] PRN; Protocol; 4 MCG/MIN PRN Reason: TITRATE PER MD ORDER Last Titration: 09/14/17 18:30 Dose: 0 mcg/min, 0 mls/hr Meropenem 500 mg/ Sodium (Chloride) 100 mls @ 200 mls/hr IVPB Q12H [facility] Last Admin: 09/16/17 12:34 Dose: 200 mls/hr Tigecycline 50 mg/ Dextrose 100 mls @ 100 mls/hr IVPB Q12H [facility] Insulin Aspart (Novolog) 0 unit SC Q6 LUIS FERNANDO PRN Reason: Protocol Last Admin: 09/16/17 07:00 Dose: 2 unit Insulin Detemir (Levemir) 43 unit SC Q12 [facility] Last Admin: 09/16/17 11:36 Dose: Not Given Lactobacillus Acidophilus (Bacid Acidophilus) 1 cap PO BID [facility] Last Admin: 09/16/17 09:26 Dose: 1 cap Metoprolol Tartrate (Lopressor) 50 mg PO BID [facility] Last Admin: 09/16/17 09:28 Dose: Not Given Rosuvastatin Calcium (Crestor) 10 mg PO HS [facility] Last Admin: 08/26/17 22:41 Dose: 10 mg Sevelamer Carbonate (Renvela) 1.6 gm GT TIDCC [facility] Last Admin: 09/16/17 09:29 Dose: 1.6 gm Trimethoprim/Sulfamethoxazole (Sulfatrim Pediatric Susp) 10 ml PO Q12 [facility] Last Admin: 09/16/17 09:29 Dose: 10 ml - Labs Labs: 09/16/17 08:07 09/16/17 08:07 PT 13.9 SECONDS (9.7-12.2) H 08/24/17 06:08 INR 1.2 08/24/17 06:08 APTT 55 SECONDS (21-34) H D 08/17/17 06:12
[2017-09-17] MEDS: Tigecycline 50 MG in Dextrose 5% In Water 100 ML IVPB SCH ×2 (00:39→13:00)
[2017-09-17] MEDS: (Novolog) Insulin Aspart, Recombinant 100 u/ml 10 ml vial SC SCH ×5 (00:39→19:00)
[2017-09-17] MEDS: Acetylcysteine 20% Inhal Soln (4ml) INH SCH ×4 (01:17→19:44)
[2017-09-17] MEDS: Albuterol-Ipratrop 3 mg / 0.5 (3 ml) UD INH SCH ×4 (01:17→19:44)
--- NOTE | 2017-09-17 08:53 | CP.PCM.PN ---
Subjective - Date & Time of Evaluation Date of Evaluation: 09/17/17 Time of Evaluation: 08:51 - Subjective Subjective: Arousable; on trach collar BP better now No new events s/p dialysis 09/16 Objective - Vital Signs/Intake and Output Vital Signs (last 24 hours): Temp Pulse Resp BP Pulse Ox 98.7 F 106 H 14 128/41 L 96 09/17/17 04:00 09/17/17 08:00 09/17/17 08:00 09/17/17 06:04 09/17/17 08:00 Intake and Output: 09/17/17 09/17/17 06:59 18:59 Intake Total 50 400 Output Total 0 Balance 50 400 - Medications Medications: Current Medications Acetylcysteine (Acetylcysteine 20%) 4 ml INH RQ6 [facility] Last Admin: 09/17/17 07:29 Dose: 4 ml Albuterol/Ipratropium (Duoneb 3 Mg/0.5 Mg (3 Ml) Ud) 3 ml INH RQ6 [facility] Last Admin: 09/17/17 07:28 Dose: 3 ml Apixaban (Eliquis) 2.5 mg PO BID [facility] Last Admin: 09/16/17 17:11 Dose: 2.5 mg Aspirin (Aspirin Chewable) 81 mg PO DAILY [facility] Last Admin: 09/16/17 09:27 Dose: 81 mg Epoetin Chencho (Procrit) 10,000 unit IV MWF [facility] Last Admin: 09/16/17 09:32 Dose: 10,000 unit Famotidine (Pepcid) 20 mg PO DAILY [facility] Last Admin: 09/16/17 09:33 Dose: 20 mg Fluconazole (Diflucan) 200 mg PO DAILY [facility] Last Admin: 09/16/17 11:20 Dose: Not Given Norepinephrine Bitartrate 4 mg (/ Dextrose) 254 mls @ 15.24 mls/hr IV .[id number] PRN; Protocol; 4 MCG/MIN PRN Reason: TITRATE PER MD ORDER Last Titration: 09/14/17 18:30 Dose: 0 mcg/min, 0 mls/hr Tigecycline 50 mg/ Dextrose 100 mls @ 100 mls/hr IVPB Q12H [facility] Last Admin: 09/17/17 00:39 Dose: 100 mls/hr Insulin Aspart (Novolog) 0 unit SC Q6 [facility] PRN Reason: Protocol Last Admin: 09/17/17 07:05 Dose: 2 unit Insulin Detemir (Levemir) 43 unit SC Q12 [facility] Last Admin: 09/16/17 21:28 Dose: 43 unit Lactobacillus Acidophilus (Bacid Acidophilus) 1 cap PO BID [facility] Last Admin: 09/16/17 17:18 Dose: 1 cap Metoprolol Tartrate (Lopressor) 50 mg PO BID [facility] Last Admin: 09/16/17 17:02 Dose: Not Given Rosuvastatin Calcium (Crestor) 10 mg PO HS [facility] Last Admin: 08/26/17 22:41 Dose: 10 mg Sevelamer Carbonate (Renvela) 1.6 gm GT TIDCC [facility] Last Admin: 09/16/17 17:11 Dose: 1.6 gm Trimethoprim/Sulfamethoxazole (Sulfatrim Pediatric Susp) 10 ml PO Q12 [facility] Last Admin: 09/16/17 21:28 Dose: 10 ml - Labs Labs: 09/16/17 08:07 09/16/17 08:07 PT 13.9 SECONDS (9.7-12.2) H 08/24/17 06:08 INR 1.2 08/24/17 06:08 APTT 55 SECONDS (21-34) H D 08/17/17 06:12 - Constitutional Appears: No Acute Distress, Chronically Ill - Head Exam Head Exam: ATRAUMATIC, NORMAL INSPECTION - Eye Exam Eye Exam: EOMI, Normal appearance - Neck Exam Neck Exam: Normal Inspection. absent: Tenderness - Respiratory Exam Respiratory Exam: Clear to Ausculation Bilateral, NORMAL BREATHING PATTERN - Cardiovascular Exam Cardiovascular Exam: REGULAR RHYTHM, +S1 - GI/Abdominal Exam GI & Abdominal Exam: Soft. absent: Tenderness - Extremities Exam Extremities Exam: Normal Inspection. absent: Tenderness - Neurological Exam Neurological Exam: Altered, Motor Sensory Deficit - Skin Skin Exam: Dry, Warm Assessment and Plan (1) Acute on chronic renal failure Status: Resolved (2) CAD (coronary artery disease) Status: Chronic (3) CHF exacerbation Status: Chronic (4) Type 2 diabetes mellitus with diabetic nephropathy Status: Acute (5) Cardiorenal disease Status: Acute (6) ESRD (end stage renal disease) Status: Acute - Assessment and Plan (Free Text) Plan: Dialysis MWF Decrease UF goal tele transfer
[2017-09-17] MEDS: Lactobacillus Acidophilus 500 MU Cap PO SCH ×2 (09:47→18:01)
[2017-09-17] MEDS: Tmp-Smz 200-40mg/5 ml Oral Sus(120 ml) PO SCH ×2 (09:47→22:37)
[2017-09-17] MEDS: Sevelamer Carb 0.8 gm/Packet GT SCH ×3 (09:49→17:00)
[2017-09-17] MEDS: Insulin Detemir 100 units/ml Vial (Levemir) SC SCH ×3 (09:50→22:36)
--- NOTE | 2017-09-17 11:59 | CP.PCM.PN ---
Subjective - Date & Time of Evaluation Date of Evaluation: 09/17/17 Time of Evaluation: 11:57 - Subjective Subjective: Surgery Progress Note for Dr. Bay HPI: Patient seen and examined at bedside. Patient looks more awake and alert. ROS unattainable Objective - Vital Signs/Intake and Output Vital Signs (last 24 hours): Temp Pulse Resp BP Pulse Ox 98.7 F 105 H 15 129/51 L 96 09/17/17 04:00 09/17/17 08:03 09/17/17 08:03 09/17/17 08:03 09/17/17 08:03 Intake and Output: 09/17/17 09/17/17 06:59 18:59 Intake Total 50 400 Output Total 0 Balance 50 400 - Medications Medications: Current Medications Acetylcysteine (Acetylcysteine 20%) 4 ml INH RQ6 [facility] Last Admin: 09/17/17 07:29 Dose: 4 ml Albuterol/Ipratropium (Duoneb 3 Mg/0.5 Mg (3 Ml) Ud) 3 ml INH RQ6 [facility] Last Admin: 09/17/17 07:28 Dose: 3 ml Apixaban (Eliquis) 2.5 mg PO BID [facility] Last Admin: 09/17/17 09:47 Dose: 2.5 mg Aspirin (Aspirin Chewable) 81 mg PO DAILY [facility] Last Admin: 09/17/17 09:47 Dose: 81 mg Epoetin Chencho (Procrit) 10,000 unit IV MWF [facility] Last Admin: 09/16/17 09:32 Dose: 10,000 unit Famotidine (Pepcid) 20 mg PO DAILY [facility] Last Admin: 09/17/17 09:47 Dose: 20 mg Fluconazole (Diflucan) 200 mg PO DAILY [facility] Last Admin: 09/16/17 11:20 Dose: Not Given Norepinephrine Bitartrate 4 mg (/ Dextrose) 254 mls @ 15.24 mls/hr IV .[id number] PRN; Protocol; 4 MCG/MIN PRN Reason: TITRATE PER MD ORDER Last Titration: 09/14/17 18:30 Dose: 0 mcg/min, 0 mls/hr Tigecycline 50 mg/ Dextrose 100 mls @ 100 mls/hr IVPB Q12H [facility] Last Admin: 09/17/17 00:39 Dose: 100 mls/hr Insulin Aspart (Novolog) 0 unit SC Q6 [facility] PRN Reason: Protocol Last Admin: 09/17/17 07:05 Dose: 2 unit Insulin Detemir (Levemir) 43 unit SC Q12 [facility] Last Admin: 09/17/17 09:50 Dose: 43 unit Lactobacillus Acidophilus (Bacid Acidophilus) 1 cap PO BID [facility] Last Admin: 09/17/17 09:47 Dose: 1 cap Metoprolol Tartrate (Lopressor) 50 mg PO BID [facility] Last Admin: 09/17/17 09:47 Dose: 50 mg Rosuvastatin Calcium (Crestor) 10 mg PO HS [facility] Last Admin: 08/26/17 22:41 Dose: 10 mg Sevelamer Carbonate (Renvela) 1.6 gm GT TIDCC [facility] Last Admin: 09/17/17 09:49 Dose: 1.6 gm Trimethoprim/Sulfamethoxazole (Sulfatrim Pediatric Susp) 10 ml PO Q12 [facility] Last Admin: 09/17/17 09:47 Dose: 10 ml - Labs Labs: 09/16/17 08:07 09/16/17 08:07 PT 13.9 SECONDS (9.7-12.2) H 08/24/17 06:08 INR 1.2 08/24/17 06:08 APTT 55 SECONDS (21-34) H D 08/17/17 06:12 - Constitutional Appears: Chronically Ill - Head Exam Head Exam: ATRAUMATIC, NORMAL INSPECTION, NORMOCEPHALIC - Eye Exam Eye Exam: EOMI - ENT Exam ENT Exam: Mucous Membranes Moist Additional comments: trach - Respiratory Exam Respiratory Exam: Clear to Ausculation Bilateral - Cardiovascular Exam Cardiovascular Exam: REGULAR RHYTHM - GI/Abdominal Exam GI & Abdominal Exam: Soft, Normal Bowel Sounds. absent: Distended, Tenderness - Extremities Exam Extremities Exam: absent: Joint Swelling, Tenderness - Back Exam Additional comments: sacral decub measuring 10cm x 10cm with clean healthy tissue at base stage 3 dressing changed, c/d/i - Neurological Exam Neurological Exam: Alert, Awake, Oriented x3 - Psychiatric Exam Psychiatric exam: Normal Affect, Normal Mood - Skin Skin Exam: Dry, Intact, Normal Color, Warm Assessment and Plan - Assessment and Plan (Free Text) Assessment: 77M with sacral decub Plan: * Dressing changed QD * Med[place] * turn Q2 * Off loading boots * Further reccs per Dr. Shanique White PGY1
--- NOTE | 2017-09-17 16:42 | CP.PCM.PN ---
Subjective - Date & Time of Evaluation Date of Evaluation: 09/17/17 Time of Evaluation: 16:30 - Subjective Subjective: Hospitalist Progress Note Patient was seen and examined at 4:30 PM 09/17/17 554 A. 77 year old male with extensive medical history (please see Assessment and Plans below) was admitted on 08/06/17 for evaluation of SOB and Chest Pain. He was planned for Cardiac Catheterization on 08/09/17. Patient then had Acute Respiratory Failure and had to be intubated and placed on vent. He is S/P Tracheostomy 08/22/17 and PEG Tube Placement 08/25/17. Please see details below. ROS are not possible as although patient is awake he is not answering (not shaking his head yes or no) Exam: - Head Exam Head Exam: NORMAL INSPECTION - Eye Exam Eye Exam: could not evaluate EOM due to patient's current status Pupil Exam: round, equal, and reactive to light - Respiratory Exam Respiratory Exam: Decreased Breath Sounds bilateral lower lung buchnaan but limited due to lack of patient participation Additional comments: Trach Collar - Cardiovascular Exam Cardiovascular Exam: REGULAR RHYTHM, +S1, +S2 - GI/Abdominal Exam GI & Abdominal Exam: Distended, Soft, BSx4 , could not palpate liver and spleen , PEG Tube Insertion Site LUQ without evidence of cellutlitis. absent: Firm, Guarding, Rigid, Tenderness, Rebound Additional comments: obese habitus, Peg Tube insertion site without signs of cellulitis - Extremities Exam Extremities Exam: Normal Capillary Refill, Pedal Edema. absent: Tenderness Additional comments: Prevalon boots b/l - Neurological Exam Additional comments: Could not be performed due to lack of patient participation - Skin Skin Exam: Sacral Ulcer S/P debridement with healthy tissue at base. Shallow Ulcer Left outer ear that is healed. Right heal blister without surrounding signs of cellulitis (1) Acute Respiratory Failure ARDS Cardiac Arrest Pulmonary Edema Nonstemi Assessment and Plan: * Code Blue on 08/10: asystole, cardiopulmonary resuscitative measures initiated , requiring 3 epis, bicarbonate, ROSC achieved and intubated and brought to the ICU for further management; Patient in the ICU from 08/10 until present. * Pulmonary: Dr Mena (Dr. Jeffers covering until 09/04/17)-->help appreciated * Cardiology: Dr. Cortés on board-->help appreciated * GI (Dr. Wills) on board-->help appreciated * S/P Tracheostomy 08/22 * S/P Peg tube placement 08/25 * s/p insertion of right posterior chest tube 08/19-->removed 08/24/17 * There was consideration for possible thoracentesis of left side pleural effusion, evaluated by IR, there is no fluid to drain per Dr. Gross * Chest xray (08/26): right arm PICC is seen with the tip of distal subclavian vein. PICC may be used * Per cardiology, * Restart Aspirin 81mg PO daily * Patient does not need Plavix at this time * Recommend for Eliquis 2.5mg PO BID for atrial flutter * 08/27: patient is pending LTAC, he went eventually need cardiac catheterization when he has stabilized. Held statin secondary to elevated LFTs. Discussed with Dr. Cortés, lowered Amiodarone 200mg PO daily * 08/28: patient is pending LTAC, he went eventually need cardiac catheterization when he has stabilized. Liver function tests improving * 08/29: Senior Contracts Manager Nehal has sent request to insurance for authorization for LTAC-->pending * 09/06: pending social work/case management approval for LTAC * 09/07: pending social work/case management approval for LTAC * 09/08: Unable to get approval for LTAC; pending other options * 09/09: Transferred from step-down ICU to the floors * 09/13: Trasnferred back to ICU S/P Rapid Response for low blood pressure * 09/14: Currently on Acetylcysteine 20 % Neb Q6H and Duoneb Q6H * 09/15: Passy Flex Trach placed by South Asian History Professor (2) Abnormal Stress Test History of AICD History of Coronary Artery Disease Assessment and Plan: * Cardiology (Dr. Cortés) on board-->help appreciated * TSH: 1.16; T4: 1.53 * Echocardiogram (08/08/17): left ventricle systolic function is severely impaired. EF: 25-30%; global hypokinesis of left ventricle mild aortic regurgitation. Mitral regurgitation is moderate. Moderate-severe pulmonary hypertension * Plan was for cardiac catheterization; delayed due to acute renal failure; Attempted gentle hydration and mucomyst on 08/09 to optimize prior to cath * On 08/10, patient was in asystole, ACLS protocol, ROSC achieved, intubated and transfered to the ICU. Patient in acute pulmonary edema. * Patient hospitalized in the ICU since 08/10/17 to present. * Medications: * Aspirin 81mg PO daily * Plavix d/c by cardiology * Lopressor 50mg PO bid * d/c Crestor 10mg POqHS secondary to rise in LFTS 08/27--->monitor LFTs daily * ARB d/c secondary to acute renal failure * 08/27: patient is pending LTAC, he went eventually need cardiac catheterization when he has stabilized. Held statin secondary to elevated LFTs. Discussed with Dr. Cortés, lowered Amiodarone 200mg PO daily * 08/28: He will eventually need cardiac catheterization when he has stabilized. Liver function tests improving. Statin is on hold (3) Atrial flutter Assessment and Plan: * Cardiology (Dr. Cortés) on board-->help appreciated * Refractory to Lopressor/Cardizem IVP * Eliquis 2.5mg PO bid * Amiodarone bolus-->Amiodarine drip on 08/24-->converted to Amiodarone 200mg PO TID on 08/26 and this was decreased to 200 mg 1x/day due to increased LFTs * 08/27: Discussed with Dr. Cortés, will lower Amiodarone 200mg PO daily and monitor LFTs. Statin held and tylenol d/c * 08/29: patient is pending LTAC, he will eventually need cardiac catheterization when he has stabilized. Liver function tests improving. Statin is on hold due to the elevated LFTs * 08/30: Cardiology discontinued the Amiodarone * 09/07: Held eliquis; will need to resume * 09/09: Eliquis resumed, off Amiodarone Status: Acute (4) Acute on Chronic Systolic CHF exacerbation Assessment and Plan: * Cardiology (Dr. Cortés) on board-->help appreciated * Transferred to the ICU on 08/10 following cardiac arrest and intubation. * Echocardiogram (08/08/17): left ventricular systolic function is severely impaired. EF: 25-30%; global hypokinesis of left ventricle mild aortic regurgitation. Mitral regurgitation is moderate. Moderate-severe pulmonary hypertension * Medications: * Aspirin 81mg PO daily * Plavix d/c by cardiology * Lopressor 50mg PO bid * d/c Crestor 10mg POqHS on 08/27 secondary to rise in LFTs * ARB d/c secondary to acute renal failure Status: Acute (5) Leukocytosis Assessment and Plan: * Patient's white count downtrending * Pleural Fluid 08/19/17 did not show any growth * Blood cultures (08/26): no growth X5 days * UA and urine culture (08/27): Urine Culture showed Yeast Species. * Patient has elevated LFTs-->did not start anti-fungal in light of LFTs New: * 09/05/17 Blood: gram positive cocci-->pending speciation * 09/05/17 Blood: no growth after 4 days * 09/07/17 Legionella Culture: negative * 09/07/17 Mycobacteria: negative * 09/07/17 Sputum: Enterocloace Bacter; yeast * 09/07/17 Blood: negative X 48 hours * 09/07/17 Blood: negative X 48 hours * 09/06: stool culture pending; has not had diarrhea or bowel movement * 09/07: Dr. Zimmer (covering Dr. Lawrence) to see the patient given elevated procalcitonin * Blood Culture 09/13/17 is negative to date and Urine Culture 09/13/17 showed Yeast Species * 09/14: Could this be secondary to the Septic Shock? Secondary to Osteomyelitis of the Sacrum? 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) and Meropenem 500 mg IV Q8H (09/13/17 through 09/16/17), Diflucan 200 mg PO 1x/day (09/13/17), Bactrim 10 mL PO Q12H (09/12/17 through 09/16/17), Tigecycline 50 mg IV Q12H (09/16/17 started because of VRE on Sacrum Wound Culture 09/14/17) * ESR 09/14/17 elevated at 89 * Bone Scan performed today 09/17/17 to check for Osteomyelitis at the Sacrum: results are pending * Meropenem 500 mg IV Q12H (09/13/17 through 09/16/17: which will cover the Enterbacter in the Sputum 09/07/17 and the possibility of Sacral Osteomyelitis) * Antibiotics as of 09/17/17:Tigecycline (09/16/17: which will cover the VRE in Sacral Wound Culture 09/14/17 and the possibility of Sacral Osteomyelitis) and Diflucan 200 mg PO 1x/day (09/13/17: which will cover with Yeast in the Sputum, Urine, and Sacral Wound Culture) Status: Acute (6) Pneumonia Assessment and Plan: * Pulmonary (Dr. Mena) on board-->help appreciated; Dr. Jeffers covering while Dr. Mena away * Infectious Disease (Dr. Lawrence)-->help appreciated * Chest xray (08/26): right arm PICC is seen with the tip of distal subclavian vein. PICC may be used * Rapid A strep, Influenza A and B studies, Urine Legionella, Mycoplasma studies = Negative * Florastor 250mg PO bid * 08/07/17: +Strep Pneumoniae in the urine * Meropenem 500mg IV Q 8 hours (08/14/17 through 08/18/17) and Zosyn 2.25 mg IV Q6H (08/13/17 through 08/18/17) * Cefepime 1 gm IV Q24H: started on 08/19/17 and was discontinued by ID Dr. Lawrence on 08/30/17: monitor vitals and labs * s/p right posterior chest tube 08/19-08/24 * Sputum Culture 08/19/17 shows No growth * Pleural fluid 08/19/17: No growth * 09/07/17 Sputum: Enterocloace Bacter and Yeast Species: See Antibiotic treatment in previous Assessment and Plan * Sputum 09/10/17 shows NO AFB Status: Acute (7) HTN (hypertension) Assessment and Plan: * Lopressor 50mg PO bid * Lisinopril 5mg PO daily Status: Chronic (8) CKD (chronic kidney disease) on Dialysis Assessment and Plan: * Dr. Miranda (nephrology) consulted on the case * Hx of CKD-->Started on dialysis 08/15/17 * Kurtis catheter placed and removed 08/22 * s/p Right Chest Permcath 08/22 * Patient is on dialysis M-W-F; oliguric * Phoslo 1334mg GT TID * Epoetin 10,000 unit IV MWF Status: Acute (9) Diabetes mellitus Assessment and Plan: * Accuchecks Q6H * HgbA1c 8.4 * Started peg feedings on 08/26/17 * Nepro-->50 ml/hour but this was held 09/13/17 due suspicion of Bowel Obstruction as NO bowel Movement since 09/07/17. This was restarted on after NO obstruction was observed on Obstruction Series 09/13/17 and after multiple bowel movement s/p Fleet Enema 09/13/17 (10) HLD (hyperlipidemia) Assessment and Plan: * 08/27: held Crestor 10 mg PO HS secondary to rise in LFTs * 08/29: Liver function tests improving; waiting to restart statin Status: Chronic (11) Anemia Assessment and Plan: * Heme-oncology (Dr. Giles bender) on board-->help appreciated * Likely iron deficiency anemia based on prior admissions * Ferritin 27.4, Iron 22, TIBC 322, % Saturation 7 * Ferric Sodium Gluconate 125mg IVPB daily (active 08/08-08/16) * Procrit 10,000 units -- * Monitor Hgb/Hct: stable Status: Chronic (12) History of DVT (deep vein thrombosis) Assessment and Plan: * Patient was previously on Eliquis for a prior history of DVT. * Repeat dopplers 08/09/17 are negative for DVT * Off Heparin Drip 08/17/17 * Started Eliquis 2.5mg PO BID for atrial flutter and history of DVT Status: Chronic (13) UTI Assessment and Plan: * Infectious disease (Dr. Lawrence) on board-->help appreciated * Exchange jaquez out and repeat urine cultures * Urine Culture 08/12/17 showed Gram Negative Rods: NO identification and NO sensitivities were performed * Meropenem 500mg IV Q 12hours (active since 08/14/17 through 08/18/17) to cover for UTI per ID * Repeat Urine Culture 08/18/17 shows NO growth * 08/25: reculture in light of leukocytosis * 08/27: pending urine studies * 08/30: Urine Culture 08/27/17 showed Yeast Species but no antifungal at that time secondary to recent history of Elevated LFTs * Urine Culture 09/13/17 showed Yeast Species: he is on Diflucan Status: Chronic (14) Confusion; Alzheimer's Dementia Assessment and Plan: * Per daughter, patient has been getting bouts of confusion over the past year but appears at baseline. Patient has not seen formal neurology as outpatient per daughter. Per , prior to event, noted Alzheimers' disease dx one year ago * CT head w/o contrast (08/10/17):acute os subacute lacune infarct is not excluded in the left basal ganglia inferiorly with definitive chronic lacune identified in the right basal ganglia superiorly. No acute or subacute lobar brain infarction is appreciable by standard CT criteria. Mild age-related neuro degenerative changes are identifed. No acute intracranial hemorrhage or mass is identified throughout * 08/26: Off Sedation-->patient moves all extremities randomly but does not follow directions * 08/27: off sedation-->patient is very calm, smiles at his * 08/28: off sedation-->patient is very calm Status: Chronic (15) Unstageable Sacral Ulcer, Left Ear Auricle Ulcer, Right Heal Ulcer Assessment and Plan: * Wound care on board * WOUND CARE NOTE (08/26)-->Pt with a sacral unstageable being treated with medihoney. No changes to dimensions at this time. Also, pt favoring Left side of head and has developed a 1x1 serous filled blister on his left ear. Primary nurse placed duoderm on the ear. Wound care nurse left duoderm in place , and recommends leaving it on until it falls off on its own. Pt has been NPO for several days, new peg inserted yesterday. Will be starting glucerna tube feedings later today. Albumin 3.3 * Turn q 2 hours * medihoney on unstageable ulcer * duoderm on left ear aurical ulcer: this is healed as of 09/15/17 * Prevalon Boots for Right Heal Blister 09/13/17 * 09/02/17: examined with Wound Care Nurse Emeka Samuel and periphery of the Sacral Wound is pink with some bleeding however center is still black and therefore still unstageable. Continue spray with Cavelon followed by thick coating with MediHoney followed by covering with OptiFoam once a day. * 09/03/17: Change of sacral ulcer dressing was performed by me with assitance from Nurse Esmer * 09/04/17: 09/03/17: Change of sacral ulcer dressing was performed by me with assistance from ALEXANDRA Unger * Per wound care note (09/07): sacral ulcer is stable per wound care nurse * 09/14/17: Sacral Ulcer is unstageable and area of blackness fills entire circumference. General Surgery consult placed to see if debridement is necessary. Continue Cavelon [place] followed by paulina thick coating of MediHoney followed by covering with OptiFoam. * 09/15/17: Surgery Team debrided Sacral Ulcer and Bone Scan will need to be followed up which was performed 09/17/17 Status: Acute (16) Elevated LFTs Assessment and Plan: * 08/27: Yina * Discussed with cardiology-->changed amiodarone 200mg PO tid to amiodaron 200mg PO daily * D/C tylenol * Held Statin * patient is also on Rocephin to cover for pneumonia * Will not start antifungal * 08/29: starting to down trending since change in amiodarone dose; awaiting to restart statin * 08/30: continues to trend down. Amiodarone was discontinued * 09/01: AST, ALT, Alk Phos still elevated but stable * 09/02: AST, ALT, Alk Phos still elevated but stable * 09/03: LFTs stable * 09/04: LFTs stable Status: Acute (17). Hx Constipation * Monitor bowel movement * Multiple bowel movements on 09/13/17 and 09/14/17 that are well formed s/p Fleet Enema on 09/13/17 * 09/15/17: NO bowel movement * 09/16/17: Soft pasty bowel movement (18). Prophylactic measure Assessment and Plan: * Pepcid 20mg PO daily * Start Eliquis 2.5mg PO BID * s/p peg placement 08/25 * s/p trachesostomy 08/22 * s/p Permcath placement 08/22 removal Kurtis catheter * s/p right posterior chest tube 08/19-->removed 08/24 * s/p Right Arm PICC 08/26 * (Jovita Serrano): -->number provided to the nurse- ->consented for peg placement; discussed about LTAC 08/26 * Spoke with Dr. Pickard, [place] regarding patient's hospitalization up until this point 08/2609/01/17: Dr. Cullen Barth spoke with the patient's [place] with the assistance of Nurse Beth on 3 tower (as multiple attempts of using [employer] indicated that all of the Mongolian translators were busy) and explained all of the patient's diagnosises. 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 Her ultimate wish is to take patient to [facility] where their children live. I explained to patient that I would not know how that would be coordinated but that the Social Workers/Credit Analysis Manager at LTAC may be of assistance in this regard. I also informed her that I am not aware of any insurance company that would finance this request. She understands that the patient is awaiting insurance approval for LTAC. 09/01/17 and 09/02/17: Dr. Cullen Barth spoke with Concrete Curer Demetria and we are still awaiting insurance authorization for LTAC placement. 09/05/17: Spoke with nehal, high school social studies teacher, wean trials sent to LTAC pending approval no word yet regarding approval. Ordered for repeat cultures given uptrend in white count. 09/06/17: pending repeat cultures in light of elevated procalcitonin; ID recommended to reculture. Note: patients PICC lined had clogged ports. Red port remains clogged in spite of cath rafaela. Blue port improved after cath rafaela. Possible may need to remove line to r/o infected line. Strong suspicion due to patient's pneumonia given he has thick secretions. 09/07/17: Infectious disease. pending repeat cultures in light of elevated procalcitonin; Note: patients PICC lined had clogged ports. Red port remains clogged in spite of cath rafaela. Blue port improved after cath rafaela. Hip xray negative for acute fracture. There are no noted falls. 09/08/17: Patient denied for LTAC; awaiting for other options from case management/social work. Resident Daniel spoke with Dr. Cortés, patient be transferred under regular bed, when bed is available. Infectious disease on board; Patient started on IV Vancomycin in light of + blood culture. Pending chest xray. 09/09/17: Patient denied for LTAC; awaiting for other options from case management/social work with kamlesh thompson velvet support. Patient started on IV Vancomycin MWF in light of + blood culture. Pending chest xray. F/U sputum with ID. f/u latest blood cultures. 09/13/17: Rapid response for low blood pressure and elevated WBC likely Septic Shock. Started on Levophed, added Meropenem to Vancomycin and 1 dose of Gentamycin given after speaking with ID. Ordered Obstruction Series as no bowel movement since 09/07/17. F/U Shock Panel. Discussed with ICU Resident to arrange for Change of Right Arm Midline line and Trach Collar. 09/14/17: Will await results of Blood Culture 09/13/17 to determine if the Right Arm Midline, Right Chest Perm Cath, and Trach Collar needs to be changed. Spoke with Concrete Curer Demetria in ICU and patient information has been sent to [facility] (they accept patients on Trach) and she is awaiting to hear back from them before submitting approval request to insurance company. 09/15/17: Passy [place] Trach placed by South Asian History Professor. Surgical Team for debridement of Sacral Ulcer. Spoke with patient's (IN DEMAND Denisa [id number]) and explained/updated her on patient condition and obtained consent for sacral ulcer debridement. 09/16/17: Still awaiting performance of Sacral Bone Scan 09/17/17: Bone Scan performed and awaiting results Cullen Barth D.O. Objective - Vital Signs/Intake and Output Vital Signs (last 24 hours): Temp Pulse Resp BP Pulse Ox 98.7 F 105 H 15 129/51 L 96 09/17/17 04:00 09/17/17 08:03 09/17/17 08:03 09/17/17 08:03 09/17/17 08:03 Intake and Output: 09/17/17 09/17/17 06:59 18:59 Intake Total 50 400 Output Total 0 Balance 50 400 - Medications Medications: Current Medications Acetylcysteine (Acetylcysteine 20%) 4 ml INH RQ6 [facility] Last Admin: 10/21/17 13:49 Dose: Not Given Albuterol/Ipratropium (Duoneb 3 Mg/0.5 Mg (3 Ml) Ud) 3 ml INH RQ6 [facility] Last Admin: 09/17/17 13:49 Dose: Not Given Apixaban (Eliquis) 2.5 mg PO BID [facility] Last Admin: 09/17/17 09:47 Dose: 2.5 mg Aspirin (Aspirin Chewable) 81 mg PO DAILY [facility] Last Admin: 09/17/17 09:47 Dose: 81 mg Epoetin Chencho (Procrit) 10,000 unit IV MWF [facility] Last Admin: 09/16/17 09:32 Dose: 10,000 unit Famotidine (Pepcid) 20 mg PO DAILY [facility] Last Admin: 09/17/17 09:47 Dose: 20 mg Fluconazole (Diflucan) 200 mg PO DAILY [facility] Last Admin: 09/17/17 15:48 Dose: Not Given Tigecycline 50 mg/ Dextrose 100 mls @ 100 mls/hr IVPB Q12H [facility] Last Admin: 09/17/17 13:00 Dose: 100 mls/hr Insulin Aspart (Novolog) 0 unit SC Q6 [facility] PRN Reason: Protocol Last Admin: 09/17/17 12:00 Dose: Not Given Insulin Detemir (Levemir) 43 unit SC Q12 [facility] Last Admin: 09/17/17 15:49 Dose: Not Given Lactobacillus Acidophilus (Bacid Acidophilus) 1 cap PO BID [facility] Last Admin: 09/17/17 09:47 Dose: 1 cap Metoprolol Tartrate (Lopressor) 50 mg PO BID [facility] Last Admin: 09/17/17 09:47 Dose: 50 mg Rosuvastatin Calcium (Crestor) 10 mg PO HS [facility] Last Admin: 08/26/17 22:41 Dose: 10 mg Sevelamer Carbonate (Renvela) 1.6 gm GT TIDCC [facility] Last Admin: 09/17/17 12:00 Dose: 1.6 gm Trimethoprim/Sulfamethoxazole (Sulfatrim Pediatric Susp) 10 ml PO Q12 [facility] Last Admin: 09/17/17 09:47 Dose: 10 ml - Labs Labs: 09/16/17 08:07 09/16/17 08:07 PT 13.9 SECONDS (9.7-12.2) H 08/24/17 06:08 INR 1.2 08/24/17 06:08 APTT 55 SECONDS (21-34) H D 08/17/17 06:12
--- NOTE | 2017-09-17 21:38 | CP.PCM.PN ---
Subjective - Date & Time of Evaluation Date of Evaluation: 09/17/17 Time of Evaluation: 08:30 - Subjective Subjective: Patient seen and evaluated Comfortable Denies chest pain and dyspnea Physical Examination - Constitutional Appears: Non-toxic, No Acute Distress - Head Exam Head Exam: ATRAUMATIC - Eye Exam Eye Exam: EOMI - Neck Exam Neck Exam: Full ROM - Cardiovascular Exam Cardiovascular Exam: Irregular Rhythm, +S1, +S2 - GI/Abdominal Exam GI & Abdominal Exam: Soft, Normal Bowel Sounds - Extremities Exam Extremities Exam: Full ROM - Neurological Exam Neurological Exam: Altered - Psychiatric Exam Psychiatric exam: Flat Affect - Skin Skin Exam: Dry, Warm Objective - Vital Signs/Intake and Output Vital Signs (last 24 hours): Temp Pulse Resp BP Pulse Ox 97.8 F 92 H 13 112/50 L 98 09/17/17 14:00 09/17/17 16:03 09/17/17 16:03 09/17/17 16:03 09/17/17 16:03 Intake and Output: 09/17/17 09/18/17 18:59 06:59 Intake Total 800 Output Total 20 Balance 780 - Medications Medications: Current Medications Acetylcysteine (Acetylcysteine 20%) 4 ml INH RQ6 [facility] [place] Last Admin: 09/17/17 19:44 Dose: 4 ml Albuterol/Ipratropium (Duoneb 3 Mg/0.5 Mg (3 Ml) Ud) 3 ml INH RQ6 [facility] [place] Last Admin: 09/17/17 19:44 Dose: 3 ml Apixaban (Eliquis) 2.5 mg PO BID [facility] [place] Last Admin: 09/17/17 17:50 Dose: 2.5 mg Aspirin (Aspirin Chewable) 81 mg PO DAILY [facility] [place] Last Admin: 09/17/17 09:47 Dose: 81 mg Epoetin Chencho (Procrit) 10,000 unit IV MWF [facility] [place] Last Admin: 09/16/17 09:32 Dose: 10,000 unit Famotidine (Pepcid) 20 mg PO DAILY [facility] [place] Last Admin: 09/17/17 09:47 Dose: 20 mg Fluconazole (Diflucan) 200 mg PO DAILY [facility] [place] Last Admin: 09/17/17 15:48 Dose: Not Given Tigecycline 50 mg/ Dextrose 100 mls @ 100 mls/hr IVPB Q12H [facility] [place] Last Admin: 09/17/17 13:00 Dose: 100 mls/hr Insulin Aspart (Novolog) 0 unit SC Q6 [facility] [place] PRN Reason: Protocol Last Admin: 09/17/17 19:00 Dose: 4 unit Insulin Detemir (Levemir) 43 unit SC Q12 [facility] [place] Last Admin: 09/17/17 15:49 Dose: Not Given Lactobacillus Acidophilus (Bacid Acidophilus) 1 cap PO BID [facility] [place] Last Admin: 09/17/17 18:01 Dose: 1 cap Metoprolol Tartrate (Lopressor) 50 mg PO BID [facility] [place] Last Admin: 09/17/17 18:00 Dose: Not Given Rosuvastatin Calcium (Crestor) 10 mg PO HS [facility] [place] Last Admin: 08/26/17 22:41 Dose: 10 mg Sevelamer Carbonate (Renvela) 1.6 gm GT TIDCC [facility] [place] Last Admin: 09/17/17 17:00 Dose: 1.6 gm Trimethoprim/Sulfamethoxazole (Sulfatrim Pediatric Susp) 10 ml PO Q12 [facility] [place] Last Admin: 09/17/17 09:47 Dose: 10 ml - Labs Labs: 09/16/17 08:07 09/16/17 08:07 PT 13.9 SECONDS (9.7-12.2) H 08/24/17 06:08 INR 1.2 08/24/17 06:08 APTT 55 SECONDS (21-34) H D 08/17/17 06:12 Assessment and Plan - Assessment and Plan (Free Text) Assessment: SIRS Hypotensive event with tachycardia yesterday Considerations for sacral wound. Concepcion cultures- Wound cultures grew out Vancomycin Resistant Enteroccoci, Urine cuture- yeast species Has undergone wound debridement per Surgery Atrial Fibrillation Intermittent Rate controlled. On Metoprolol 50 mg PO BID, Eliquis 2.5 mg PO BID CAD, chest pain -No current plans for cardiac cath (acute respiratory failure and elevated Cr) , history of abnormal stress test -Elevated Troponin likely due to chest compressions during cardiac arrest 08/10 -No acute ST changes on EKG -Continue ASA, Crestor, Metoprolol. -Echocardiogram from 08/08/17 showed left ventricle systolic function is severely impaired. EF: 25-30%; global hypokinesis of LV mild AR. MR is moderate. Moderate-severe pulmonary hypertension Systolic CHF exacerbation -CXR 09/09: Diminished bilateral basilar airspace disease; stable cardiomegaly -BNP 27985 on 08/06/17 -Continue ASA, Crestor, Metoprolol -Echocardiogram from 08/08/17 showed left ventricle systolic function is severely impaired. EF: 25-30%; global hypokinesis of LV mild AR. MR is moderate. Moderate-severe pulmonary hypertesnion Dobutamine discontinued in light of atrial flutter-type episodes Diabetes Mellitus ISS Continue to monitor ESRD on HD Currently on HD On Procrit and Phoslo Nephro on the case Prophylaxis Pepcid 20 mg PO daily Eliquis 2.5 mg PO BID (Renal precautions) Disposition Awaiting Transfer to LTAC
[2017-09-18] MEDS: Tigecycline 50 MG in Dextrose 5% In Water 100 ML IVPB SCH ×2 (00:19→11:30)
[2017-09-18] MEDS: (Novolog) Insulin Aspart, Recombinant 100 u/ml 10 ml vial SC SCH ×4 (00:20→17:47)
[2017-09-18] MEDS: Acetylcysteine 20% Inhal Soln (4ml) INH SCH ×4 (02:42→19:23)
[2017-09-18] MEDS: Albuterol-Ipratrop 3 mg / 0.5 (3 ml) UD INH SCH ×4 (02:42→19:23)
[2017-09-18] MEDS: Sevelamer Carb 0.8 gm/Packet GT SCH ×3 (07:48→18:34)
[2017-09-18] MEDS: Lactobacillus Acidophilus 500 MU Cap PO SCH ×2 (09:38→17:46)
[2017-09-18] MEDS: Insulin Detemir 100 units/ml Vial (Levemir) SC SCH ×2 (09:46→23:25)
[2017-09-18] MEDS: Tmp-Smz 200-40mg/5 ml Oral Sus(120 ml) PO SCH (09:46)
--- NOTE | 2017-09-18 10:26 | CP.PCM.PN ---
Subjective - Date & Time of Evaluation Date of Evaluation: 09/18/17 Time of Evaluation: 06:45 - Subjective Subjective: General Surgery Dr. Bay Pt seen and examined @bedside. NAEO. jackson nonverbal w/ tracheostomy - ROS unobtainable. Objective - Vital Signs/Intake and Output Vital Signs (last 24 hours): Temp Pulse Resp BP Pulse Ox 98.2 F 99 H 18 136/48 L 100 09/18/17 10:00 09/18/17 10:00 09/18/17 10:00 09/18/17 09:39 09/18/17 10:00 Intake and Output: 09/18/17 09/18/17 06:59 18:59 Intake Total 300 Output Total 350 Balance -50 - Medications Medications: Current Medications Acetylcysteine (Acetylcysteine 20%) 4 ml INH RQ6 [facility] Last Admin: 09/18/17 09:00 Dose: 4 ml Albuterol/Ipratropium (Duoneb 3 Mg/0.5 Mg (3 Ml) Ud) 3 ml INH RQ6 [facility] Last Admin: 09/18/17 09:00 Dose: 3 ml Apixaban (Eliquis) 2.5 mg PO BID [facility] Last Admin: 09/18/17 09:38 Dose: 2.5 mg Aspirin (Aspirin Chewable) 81 mg PO DAILY [facility] Last Admin: 09/18/17 09:38 Dose: 81 mg Epoetin Chencho (Procrit) 10,000 unit IV MWF [facility] Last Admin: 09/16/17 09:32 Dose: 10,000 unit Famotidine (Pepcid) 20 mg PO DAILY [facility] Last Admin: 09/18/17 09:38 Dose: 20 mg Fluconazole (Diflucan) 200 mg PO DAILY [facility] Last Admin: 09/18/17 09:38 Dose: 200 mg Tigecycline 50 mg/ Dextrose 100 mls @ 100 mls/hr IVPB Q12H [facility] Last Admin: 09/18/17 00:19 Dose: 100 mls/hr Insulin Aspart (Novolog) 0 unit SC Q6 [facility] PRN Reason: Protocol Last Admin: 09/18/17 06:30 Dose: 4 unit Insulin Detemir (Levemir) 43 unit SC Q12 [facility] Last Admin: 09/18/17 09:46 Dose: 43 unit Lactobacillus Acidophilus (Bacid Acidophilus) 1 cap PO BID [facility] Last Admin: 09/18/17 09:38 Dose: 1 cap Metoprolol Tartrate (Lopressor) 50 mg PO BID [facility] Last Admin: 09/18/17 09:39 Dose: 50 mg Rosuvastatin Calcium (Crestor) 10 mg PO HS [facility] Last Admin: 08/26/17 22:41 Dose: 10 mg Sevelamer Carbonate (Renvela) 1.6 gm GT TIDCC [facility] Last Admin: 09/18/17 07:48 Dose: 1.6 gm Trimethoprim/Sulfamethoxazole (Sulfatrim Pediatric Susp) 10 ml PO Q12 [facility] Last Admin: 09/18/17 09:46 Dose: 10 ml - Labs Labs: 09/16/17 08:07 09/16/17 08:07 PT 13.9 SECONDS (9.7-12.2) H 08/24/17 06:08 INR 1.2 08/24/17 06:08 APTT 55 SECONDS (21-34) H D 08/17/17 06:12 - Constitutional Appears: Non-toxic, No Acute Distress - Head Exam Head Exam: NORMAL INSPECTION - Eye Exam Eye Exam: Normal appearance - ENT Exam ENT Exam: Mucous Membranes Moist - Respiratory Exam Respiratory Exam: NORMAL BREATHING PATTERN. absent: Accessory Muscle Use, Respiratory Distress Additional comments: tracheostomy - Cardiovascular Exam Cardiovascular Exam: Tachycardia - GI/Abdominal Exam GI & Abdominal Exam: Soft. absent: Distended, Tenderness - Back Exam Additional comments: stage 3 sacral decub measuring 10cm x 10cm dressing c/d/i - Neurological Exam Neurological Exam: Alert, Awake - Psychiatric Exam Psychiatric exam: Flat Affect - Skin Skin Exam: Dry, Warm Assessment and Plan - Assessment and Plan (Free Text) Assessment: 77 y/o M w/ stage 3 sacral decubitus ulcer - daily dressing changes - apply medihoney - turn Q2 - cont management per ICU Pt discussed w/ Dr. Shanique Lanier DO PGY2
--- NOTE | 2017-09-18 17:22 | CP.PCM.PN ---
Subjective - Date & Time of Evaluation Date of Evaluation: 09/18/17 Time of Evaluation: 17:00 - Subjective Subjective: Hospitalist Progress Note Patient was seen and examined at 5:00 PM 09/18/17 554 A 77 year old male with extensive medical history (please see Assessment and Plans below) was admitted on 08/06/17 for evaluation of SOB and Chest Pain. He was planned for Cardiac Catheterization on 08/09/17. Patient then had Acute Respiratory Failure and had to be intubated and placed on vent. He is S/P Tracheostomy 08/22/17 and PEG Tube Placement 08/25/17. Please see details below. ROS are not possible as although patient is awake he is not answering (not shaking his head yes or no) Exam: - Head Exam Head Exam: NORMAL INSPECTION - Eye Exam Eye Exam: could not evaluate EOM due to patient's current status Pupil Exam: round, equal, and reactive to light - Respiratory Exam Respiratory Exam: Decreased Breath Sounds bilateral lower lung buchanan but limited due to lack of patient participation Additional comments: Trach Collar - Cardiovascular Exam Cardiovascular Exam: REGULAR RHYTHM, +S1, +S2 - GI/Abdominal Exam GI & Abdominal Exam: Distended, Soft, BSx4 , could not palpate liver and spleen , PEG Tube Insertion Site LUQ without evidence of cellutlitis. absent: Firm, Guarding, Rigid, Tenderness, Rebound Additional comments: obese habitus, Peg Tube insertion site without signs of cellulitis - Extremities Exam Extremities Exam: Normal Capillary Refill, Pedal Edema. absent: Tenderness Additional comments: Prevalon boots b/l - Neurological Exam Additional comments: Could not be performed due to lack of patient participation - Skin Skin Exam: Sacral Ulcer S/P debridement with healthy tissue at base/ subcutaneous fat visible with few scattered black areas. Shallow Ulcer Left outer ear that is healed. Right heal blister without surrounding signs of cellulitis (1) Acute Respiratory Failure ARDS Cardiac Arrest Pulmonary Edema Nonstemi Assessment and Plan: * Code Blue on 08/10: asystole, cardiopulmonary resuscitative measures initiated , requiring 3 epis, bicarbonate, ROSC achieved and intubated and brought to the ICU for further management; Patient in the ICU from 08/10 until present. * Pulmonary: Dr Mena (Dr. Jeffers covering until 09/04/17)-->help appreciated * Cardiology: Dr. Cortés on board-->help appreciated * GI (Dr. Wills) on board-->help appreciated * S/P Tracheostomy 08/22 * S/P Peg tube placement 08/25 * s/p insertion of right posterior chest tube 08/19-->removed 08/24/17 * There was consideration for possible thoracentesis of left side pleural effusion, evaluated by IR, there is no fluid to drain per Dr. Gross * Chest xray (08/26): right arm PICC is seen with the tip of distal subclavian vein. PICC may be used * Per cardiology, * Restart Aspirin 81mg PO daily * Patient does not need Plavix at this time * Recommend for Eliquis 2.5mg PO BID for atrial flutter * 08/27: patient is pending LTAC, he went eventually need cardiac catheterization when he has stabilized. Held statin secondary to elevated LFTs. Discussed with Dr. Cortés, lowered Amiodarone 200mg PO daily * 08/28: patient is pending LTAC, he went eventually need cardiac catheterization when he has stabilized. Liver function tests improving * 08/29: Silk Worker Nehal has sent request to insurance for authorization for LTAC-->pending * 09/06: pending social work/case management approval for LTAC * 09/07: pending social work/case management approval for LTAC * 09/08: Unable to get approval for LTAC; pending other options * 09/09: Transferred from step-down ICU to the floors * 09/13: Trasnferred back to ICU S/P Rapid Response for low blood pressure * 09/14: Currently on Acetylcysteine 20 % Neb Q6H and Duoneb Q6H * 09/15: Passy Flex Trach placed by Eligibility Technician (2) Abnormal Stress Test History of AICD History of Coronary Artery Disease Assessment and Plan: * Cardiology (Dr. Cortés) on board-->help appreciated * TSH: 1.16; T4: 1.53 * Echocardiogram (08/08/17): left ventricle systolic function is severely impaired. EF: 25-30%; global hypokinesis of left ventricle mild aortic regurgitation. Mitral regurgitation is moderate. Moderate-severe pulmonary hypertension * Plan was for cardiac catheterization; delayed due to acute renal failure; Attempted gentle hydration and mucomyst on 08/09 to optimize prior to cath * On 08/10, patient was in asystole, ACLS protocol, ROSC achieved, intubated and transfered to the ICU. Patient in acute pulmonary edema. * Patient hospitalized in the ICU since 08/10/17 to present. * Medications: * Aspirin 81mg PO daily * Plavix d/c by cardiology * Lopressor 50mg PO bid * d/c Crestor 10mg POqHS secondary to rise in LFTS 08/27--->monitor LFTs daily * ARB d/c secondary to acute renal failure * 08/27: patient is pending LTAC, he went eventually need cardiac catheterization when he has stabilized. Held statin secondary to elevated LFTs. Discussed with Dr. Cortés, lowered Amiodarone 200mg PO daily * 08/28: He will eventually need cardiac catheterization when he has stabilized. Liver function tests improving. Statin is on hold (3) Atrial flutter Assessment and Plan: * Cardiology (Dr. Cortés) on board-->help appreciated * Refractory to Lopressor/Cardizem IVP * Eliquis 2.5mg PO bid * Amiodarone bolus-->Amiodarine drip on 08/24-->converted to Amiodarone 200mg PO TID on 08/26 and this was decreased to 200 mg 1x/day due to increased LFTs * 08/27: Discussed with Dr. Cortés, will lower Amiodarone 200mg PO daily and monitor LFTs. Statin held and tylenol d/c * 08/29: patient is pending LTAC, he will eventually need cardiac catheterization when he has stabilized. Liver function tests improving. Statin is on hold due to the elevated LFTs * 08/30: Cardiology discontinued the Amiodarone * 09/07: Held eliquis; will need to resume * 09/09: Eliquis resumed, off Amiodarone Status: Acute (4) Acute on Chronic Systolic CHF exacerbation Assessment and Plan: * Cardiology (Dr. Cortés) on board-->help appreciated * Transferred to the ICU on 08/10 following cardiac arrest and intubation. * Echocardiogram (08/08/17): left ventricular systolic function is severely impaired. EF: 25-30%; global hypokinesis of left ventricle mild aortic regurgitation. Mitral regurgitation is moderate. Moderate-severe pulmonary hypertension * Medications: * Aspirin 81mg PO daily * Plavix d/c by cardiology * Lopressor 50mg PO bid * d/c Crestor 10mg POqHS on 08/27 secondary to rise in LFTs * ARB d/c secondary to acute renal failure Status: Acute (5) Leukocytosis Assessment and Plan: * Patient's white count downtrending * Pleural Fluid 08/19/17 did not show any growth * Blood cultures (08/26): no growth X5 days * UA and urine culture (08/27): Urine Culture showed Yeast Species. * Patient has elevated LFTs-->did not start anti-fungal in light of LFTs New: * 09/05/17 Blood: gram positive cocci-->pending speciation * 09/05/17 Blood: no growth after 4 days * 09/07/17 Legionella Culture: negative * 09/07/17 Mycobacteria: negative * 09/07/17 Sputum: Enterocloace Bacter; yeast * 09/07/17 Blood: negative X 48 hours * 09/07/17 Blood: negative X 48 hours * 09/06: stool culture pending; has not had diarrhea or bowel movement * 09/07: Dr. Zimmer (covering Dr. Lawrence) to see the patient given elevated procalcitonin * Blood Culture 09/13/17 is negative to date and Urine Culture 09/13/17 showed Yeast Species * 09/14: Could this be secondary to the Septic Shock? Secondary to Osteomyelitis of the Sacrum? 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) and Meropenem 500 mg IV Q8H (09/13/17 through 09/16/17), Diflucan 200 mg PO 1x/day (09/13/17), Bactrim 10 mL PO Q12H (09/12/17 through 09/16/17), Tigecycline 50 mg IV Q12H (09/16/17 started because of VRE on Sacrum Wound Culture 09/14/17) * ESR 09/14/17 elevated at 89 * Bone Scan performed today 09/17/17 to check for Osteomyelitis at the Sacrum: results are pending * Meropenem 500 mg IV Q12H (09/13/17 through 09/16/17: which will cover the Enterbacter in the Sputum 09/07/17 and the possibility of Sacral Osteomyelitis) * Antibiotics as of 09/17/17:Tigecycline (09/16/17: which will cover the VRE in Sacral Wound Culture 09/14/17 and the possibility of Sacral Osteomyelitis) and Diflucan 200 mg PO 1x/day (09/13/17: which will cover with Yeast in the Sputum, Urine, and Sacral Wound Culture) Status: Acute (6) Pneumonia Assessment and Plan: * Pulmonary (Dr. Mena) on board-->help appreciated; Dr. Jeffers covering while Dr. Mena away * Infectious Disease (Dr. Lawrence)-->help appreciated * Chest xray (08/26): right arm PICC is seen with the tip of distal subclavian vein. PICC may be used * Rapid A strep, Influenza A and B studies, Urine Legionella, Mycoplasma studies = Negative * Florastor 250mg PO bid * 08/07/17: +Strep Pneumoniae in the urine * Meropenem 500mg IV Q 8 hours (08/14/17 through 08/18/17) and Zosyn 2.25 mg IV Q6H (08/13/17 through 08/18/17) * Cefepime 1 gm IV Q24H: started on 08/19/17 and was discontinued by ID Dr. Lawrence on 08/30/17: monitor vitals and labs * s/p right posterior chest tube 08/19-08/24 * Sputum Culture 08/19/17 shows No growth * Pleural fluid 08/19/17: No growth * 09/07/17 Sputum: Enterocloace Bacter and Yeast Species: See Antibiotic treatment in previous Assessment and Plan * Sputum 09/10/17 shows NO AFB Status: Acute (7) HTN (hypertension) Assessment and Plan: * Lopressor 50mg PO bid * Lisinopril 5mg PO daily Status: Chronic (8) CKD (chronic kidney disease) on Dialysis Assessment and Plan: * Dr. Miranda (nephrology) consulted on the case * Hx of CKD-->Started on dialysis 08/15/17 * Kurtis catheter placed and removed 08/22 * s/p Right Chest Permcath 08/22 * Patient is on dialysis M-W-; oliguric * Phoslo 1334mg GT TID * Epoetin 10,000 unit IV MWF Status: Acute (9) Diabetes mellitus Assessment and Plan: * Accuchecks Q6H * HgbA1c 8.4 * Started peg feedings on 08/26/17 * Nepro-->50 ml/hour but this was held 09/13/17 due suspicion of Bowel Obstruction as NO bowel Movement since 09/07/17. This was restarted on after NO obstruction was observed on Obstruction Series 09/13/17 and after multiple bowel movement s/p Fleet Enema 09/13/17 (10) HLD (hyperlipidemia) Assessment and Plan: * 08/27: held Crestor 10 mg PO HS secondary to rise in LFTs * 08/29: Liver function tests improving; waiting to restart statin Status: Chronic (11) Anemia Assessment and Plan: * Heme-oncology (Dr. Giles bender) on board-->help appreciated * Likely iron deficiency anemia based on prior admissions * Ferritin 27.4, Iron 22, TIBC 322, % Saturation 7 * Ferric Sodium Gluconate 125mg IVPB daily (active 08/08-08/16) * Procrit 10,000 units -- * Monitor Hgb/Hct: stable Status: Chronic (12) History of DVT (deep vein thrombosis) Assessment and Plan: * Patient was previously on Eliquis for a prior history of DVT. * Repeat dopplers 08/09/17 are negative for DVT * Off Heparin Drip 08/17/17 * Started Eliquis 2.5mg PO BID for atrial flutter and history of DVT Status: Chronic (13) UTI Assessment and Plan: * Infectious disease (Dr. Lawrence) on board-->help appreciated * Exchange jaquez out and repeat urine cultures * Urine Culture 08/12/17 showed Gram Negative Rods: NO identification and NO sensitivities were performed * Meropenem 500mg IV Q 12hours (active since 08/14/17 through 08/18/17) to cover for UTI per ID * Repeat Urine Culture 08/18/17 shows NO growth * 08/25: reculture in light of leukocytosis * 08/27: pending urine studies * 08/30: Urine Culture 08/27/17 showed Yeast Species but no antifungal at that time secondary to recent history of Elevated LFTs * Urine Culture 09/13/17 showed Yeast Species: he is on Diflucan Status: Chronic (14) Confusion; Alzheimer's Dementia Assessment and Plan: * Per daughter, patient has been getting bouts of confusion over the past year but appears at baseline. Patient has not seen formal neurology as outpatient per daughter. Per , prior to event, noted Alzheimers' disease dx one year ago * CT head w/o contrast (08/10/17):acute os subacute lacune infarct is not excluded in the left basal ganglia inferiorly with definitive chronic lacune identified in the right basal ganglia superiorly. No acute or subacute lobar brain infarction is appreciable by standard CT criteria. Mild age-related neuro degenerative changes are identifed. No acute intracranial hemorrhage or mass is identified throughout * 08/26: Off Sedation-->patient moves all extremities randomly but does not follow directions * 08/27: off sedation-->patient is very calm, smiles at his * 08/28: off sedation-->patient is very calm Status: Chronic (15) Unstageable Sacral Ulcer, Left Ear Auricle Ulcer, Right Heal Ulcer Assessment and Plan: * Wound care on board * WOUND CARE NOTE (08/26)-->Pt with a sacral unstageable being treated with medihoney. No changes to dimensions at this time. Also, pt favoring Left side of head and has developed a 1x1 serous filled blister on his left ear. Primary nurse placed duoderm on the ear. Wound care nurse left duoderm in place , and recommends leaving it on until it falls off on its own. Pt has been NPO for several days, new peg inserted yesterday. Will be starting glucerna tube feedings later today. Albumin 3.3 * Turn q 2 hours * medihoney on unstageable ulcer * duoderm on left ear aurical ulcer: this is healed as of 09/15/17 * Prevalon Boots for Right Heal Blister 09/13/17 * 09/02/17: examined with Wound Care Nurse Emeka Samuel and periphery of the Sacral Wound is pink with some bleeding however center is still black and therefore still unstageable. Continue spray with Cavelon followed by thick coating with MediHoney followed by covering with OptiFoam once a day. * 09/03/17: Change of sacral ulcer dressing was performed by me with assitance from Nurse Esmer * 09/04/17: 09/03/17: Change of sacral ulcer dressing was performed by me with assistance from ALEXANDRA Unger * Per wound care note (09/07): sacral ulcer is stable per wound care nurse * 09/14/17: Sacral Ulcer is unstageable and area of blackness fills entire circumference. General Surgery consult placed to see if debridement is necessary. Continue Cavelon [place] followed by paulina thick coating of MediHoney followed by covering with OptiFoam. * 09/15/17: Surgery Team debrided Sacral Ulcer and Bone Scan will need to be followed up which was performed 09/17/17 * 09/18/17: With the help of Nurse Guzman, applied Cavelon [place] followed by thick coating of MediHoney followed by covering with OptiFoam Status: Acute (16) Elevated LFTs Assessment and Plan: * 08/27: Yina * Discussed with cardiology-->changed amiodarone 200mg PO tid to amiodaron 200mg PO daily * D/C tylenol * Held Statin * patient is also on Rocephin to cover for pneumonia * Will not start antifungal * 08/29: starting to down trending since change in amiodarone dose; awaiting to restart statin * 08/30: continues to trend down. Amiodarone was discontinued * 09/01: AST, ALT, Alk Phos still elevated but stable * 09/02: AST, ALT, Alk Phos still elevated but stable * 09/03: LFTs stable * 09/04: LFTs stable Status: Acute (17). Hx Constipation * Monitor bowel movement * Multiple bowel movements on 09/13/17 and 09/14/17 that are well formed s/p Fleet Enema on 09/13/17 * 09/15/17: NO bowel movement * 09/16/17: Soft pasty bowel movement * 09/17/17: Soft pasty bowel movement * 09/18/17: NO bowel movement (18). Prophylactic measure Assessment and Plan: * Pepcid 20mg PO daily * Start Eliquis 2.5mg PO BID * s/p peg placement 08/25 * s/p trachesostomy 08/22 * s/p Permcath placement 08/22 removal Kurtis catheter * s/p right posterior chest tube 08/19-->removed 08/24 * s/p Right Arm PICC 08/26 * (Jovita Serrano): -->number provided to the nurse- ->consented for peg placement; discussed about LTAC 08/26 * Spoke with Dr. Pickard, MARIAJOSE regarding patient's hospitalization up until this point 08/2609/01/17: Dr. Cullen Barth spoke with the patient's [place] with the assistance of Nurse Beth on 3 tower (as multiple attempts of using [employer] indicated that all of the English translators were busy) and explained all of the patient's diagnosises. 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 Her ultimate wish is to take patient to [facility] where their children live. I explained to patient that I would not know how that would be coordinated but that the Social Workers/Talent Acquisition Associate at LTAC may be of assistance in this regard. I also informed her that I am not aware of any insurance company that would finance this request. She understands that the patient is awaiting insurance approval for LTAC. 09/01/17 and 09/02/17: Dr. Cullen Barth spoke with Application Security Engineer Demetria and we are still awaiting insurance authorization for LTAC placement. 09/05/17: Spoke with nehal, director social welfare, wean trials sent to LTAC pending approval no word yet regarding approval. Ordered for repeat cultures given uptrend in white count. 09/06/17: pending repeat cultures in light of elevated procalcitonin; ID recommended to reculture. Note: patients PICC lined had clogged ports. Red port remains clogged in spite of cath rafaela. Blue port improved after cath rafaela. Possible may need to remove line to r/o infected line. Strong suspicion due to patient's pneumonia given he has thick secretions. 09/07/17: Infectious disease. pending repeat cultures in light of elevated procalcitonin; Note: patients PICC lined had clogged ports. Red port remains clogged in spite of cath rafaela. Blue port improved after cath rafaela. Hip xray negative for acute fracture. There are no noted falls. 09/08/17: Patient denied for LTAC; awaiting for other options from case management/social work. Resident Eng spoke with Dr. Cortés, patient be transferred under regular bed, when bed is available. Infectious disease on board; Patient started on IV Vancomycin in light of + blood culture. Pending chest xray. 09/09/17: Patient denied for LTAC; awaiting for other options from case management/social work with [facility] support. Patient started on IV Vancomycin MWF in light of + blood culture. Pending chest xray. F/U sputum with ID. f/u latest blood cultures. 09/13/17: Rapid response for low blood pressure and elevated WBC likely Septic Shock. Started on Levophed, added Meropenem to Vancomycin and 1 dose of Gentamycin given after speaking with ID. Ordered Obstruction Series as no bowel movement since 09/07/17. F/U Shock Panel. Discussed with ICU Resident to arrange for Change of Right Arm Midline line and Trach Collar. 09/14/17: Will await results of Blood Culture 09/13/17 to determine if the Right Arm Midline, Right Chest Perm Cath, and Trach Collar needs to be changed. Spoke with Application Security Engineer Demetria in ICU and patient information has been sent to [facility] and [place] (they accept patients on Trach) and she is awaiting to hear back from them before submitting approval request to insurance company. 09/15/17: Passy Flex Trach placed by Eligibility Technician. Surgical Team for debridement of Sacral Ulcer. Spoke with patient's ([place] Denisa [id number]) and explained/updated her on patient condition and obtained consent for sacral ulcer debridement. 09/16/17: Still awaiting performance of Sacral Bone Scan 09/17/17: Bone Scan performed and awaiting results 09/18/17: Awaiting Bone Scan Report Cullen Barth D.O. Objective - Vital Signs/Intake and Output Vital Signs (last 24 hours): Temp Pulse Resp BP Pulse Ox 99 F 103 H 14 110/44 L 99 09/18/17 12:00 09/18/17 16:00 09/18/17 16:00 09/18/17 15:39 09/18/17 16:00 Intake and Output: 09/18/17 09/18/17 06:59 18:59 Intake Total 800 Output Total 350 Balance 450 - Medications Medications: Current Medications Acetylcysteine (Acetylcysteine 20%) 4 ml INH RQ6 [facility] Last Admin: 09/18/17 13:26 Dose: 4 ml Albuterol/Ipratropium (Duoneb 3 Mg/0.5 Mg (3 Ml) Ud) 3 ml INH RQ6 [facility] Last Admin: 09/18/17 13:26 Dose: 3 ml Apixaban (Eliquis) 2.5 mg PO BID [facility] Last Admin: 09/18/17 09:38 Dose: 2.5 mg Aspirin (Aspirin Chewable) 81 mg PO DAILY [facility] Last Admin: 09/18/17 09:38 Dose: 81 mg Epoetin Chencho (Procrit) 10,000 unit IV MWF [facility] Last Admin: 09/16/17 09:32 Dose: 10,000 unit Famotidine (Pepcid) 20 mg PO DAILY [facility] Last Admin: 09/18/17 09:38 Dose: 20 mg Fluconazole (Diflucan) 200 mg PO DAILY [facility] Last Admin: 09/18/17 09:38 Dose: 200 mg Tigecycline 50 mg/ Dextrose 100 mls @ 100 mls/hr IVPB Q12H [facility] Last Admin: 09/18/17 11:30 Dose: 100 mls/hr Insulin Aspart (Novolog) 0 unit SC Q6 [facility] PRN Reason: Protocol Last Admin: 09/18/17 11:43 Dose: 2 unit Insulin Detemir (Levemir) 43 unit SC Q12 [facility] Last Admin: 09/18/17 09:46 Dose: 43 unit Lactobacillus Acidophilus (Bacid Acidophilus) 1 cap PO BID [facility] Last Admin: 09/18/17 09:38 Dose: 1 cap Metoprolol Tartrate (Lopressor) 50 mg PO BID [facility] Last Admin: 09/18/17 09:39 Dose: 50 mg Rosuvastatin Calcium (Crestor) 10 mg PO HS [facility] Last Admin: 08/26/17 22:41 Dose: 10 mg Sevelamer Carbonate (Renvela) 1.6 gm GT TIDCC [facility] Last Admin: 09/18/17 11:39 Dose: 1.6 gm - Labs Labs: 09/16/17 08:07 09/16/17 08:07 PT 13.9 SECONDS (9.7-12.2) H 08/24/17 06:08 INR 1.2 08/24/17 06:08 APTT 55 SECONDS (21-34) H D 08/17/17 06:12
--- NOTE | 2017-09-18 21:18 | CP.PCM.PN ---
Subjective - Date & Time of Evaluation Date of Evaluation: 09/18/17 Time of Evaluation: 17:20 - Subjective Subjective: Patient seen and evaluated Not in distress Denies chest pain and dyspnea Physical Examination - Constitutional Appears: Non-toxic, No Acute Distress - Head Exam Head Exam: ATRAUMATIC - Eye Exam Eye Exam: EOMI - Neck Exam Neck Exam: Full ROM - Cardiovascular Exam Cardiovascular Exam: Irregular Rhythm, +S1, +S2 - GI/Abdominal Exam GI & Abdominal Exam: Soft, Normal Bowel Sounds - Extremities Exam Extremities Exam: Full ROM - Neurological Exam Neurological Exam: Altered - Psychiatric Exam Psychiatric exam: Flat Affect - Skin Skin Exam: Dry, Warm Objective - Vital Signs/Intake and Output Vital Signs (last 24 hours): Temp Pulse Resp BP Pulse Ox 99.7 F H 103 H 12 123/45 L 100 09/18/17 16:00 09/18/17 18:00 09/18/17 18:00 09/18/17 17:36 09/18/17 18:00 Intake and Output: 09/18/17 09/19/17 18:59 06:59 Intake Total 800 Output Total 350 Balance 450 - Medications Medications: Current Medications Acetylcysteine (Acetylcysteine 20%) 4 ml INH RQ6 [facility] Last Admin: 09/18/17 19:23 Dose: 4 ml Albuterol/Ipratropium (Duoneb 3 Mg/0.5 Mg (3 Ml) Ud) 3 ml INH RQ6 [facility] Last Admin: 09/18/17 19:23 Dose: 3 ml Apixaban (Eliquis) 2.5 mg PO BID [facility] Last Admin: 09/18/17 17:46 Dose: 2.5 mg Aspirin (Aspirin Chewable) 81 mg PO DAILY [facility] Last Admin: 09/18/17 09:38 Dose: 81 mg Epoetin Chencho (Procrit) 10,000 unit IV MWF [facility] Last Admin: 09/16/17 09:32 Dose: 10,000 unit Famotidine (Pepcid) 20 mg PO DAILY [facility] Last Admin: 09/18/17 09:38 Dose: 20 mg Fluconazole (Diflucan) 200 mg PO DAILY [facility] Last Admin: 09/18/17 09:38 Dose: 200 mg Tigecycline 50 mg/ Sodium (Chloride) 100 mls @ 100 mls/hr IVPB Q12H [facility] Insulin Aspart (Novolog) 0 unit SC Q6 [facility] PRN Reason: Protocol Last Admin: 09/18/17 17:47 Dose: Not Given Insulin Detemir (Levemir) 43 unit SC Q12 [facility] Last Admin: 09/18/17 09:46 Dose: 43 unit Lactobacillus Acidophilus (Bacid Acidophilus) 1 cap PO BID [facility] Last Admin: 09/18/17 17:46 Dose: 1 cap Metoprolol Tartrate (Lopressor) 50 mg PO BID [facility] Last Admin: 09/18/17 17:46 Dose: 50 mg Rosuvastatin Calcium (Crestor) 10 mg PO HS [facility] Last Admin: 08/26/17 22:41 Dose: 10 mg Sevelamer Carbonate (Renvela) 1.6 gm GT TIDCC [facility] Last Admin: 09/18/17 18:34 Dose: Not Given - Labs Labs: 09/16/17 08:07 09/16/17 08:07 PT 13.9 SECONDS (9.7-12.2) H 08/24/17 06:08 INR 1.2 08/24/17 06:08 APTT 55 SECONDS (21-34) H D 08/17/17 06:12 Assessment and Plan - Assessment and Plan (Free Text) Assessment: SIRS Hypotensive event with tachycardia yesterday Considerations for sacral wound. Concepcion cultures- Wound cultures grew out Vancomycin Resistant Enteroccoci, Urine cuture- yeast species Has undergone wound debridement per Surgery Atrial Fibrillation Intermittent Rate controlled. On Metoprolol 50 mg PO BID, Eliquis 2.5 mg PO BID CAD, chest pain -No current plans for cardiac cath (acute respiratory failure and elevated Cr) , history of abnormal stress test -Elevated Troponin likely due to chest compressions during cardiac arrest 08/10 -No acute ST changes on EKG -Continue ASA, Crestor, Metoprolol. -Echocardiogram from 08/08/17 showed left ventricle systolic function is severely impaired. EF: 25-30%; global hypokinesis of LV mild AR. MR is moderate. Moderate-severe pulmonary hypertension Systolic CHF exacerbation -CXR 09/09: Diminished bilateral basilar airspace disease; stable cardiomegaly -BNP [id number] on 08/06/17 -Continue ASA, Crestor, Metoprolol -Echocardiogram from 08/08/17 showed left ventricle systolic function is severely impaired. EF: 25-30%; global hypokinesis of LV mild AR. MR is moderate. Moderate-severe pulmonary hypertesnion Dobutamine discontinued in light of atrial flutter-type episodes Diabetes Mellitus ISS Continue to monitor ESRD on HD Currently on HD On Procrit and Phoslo Nephro on the case Prophylaxis Pepcid 20 mg PO daily Eliquis 2.5 mg PO BID (Renal precautions) Disposition Awaiting Transfer to [facility]
[2017-09-19] MEDS: (Novolog) Insulin Aspart, Recombinant 100 u/ml 10 ml vial SC SCH ×5 (00:34→23:55)
[2017-09-19] MEDS: Albuterol-Ipratrop 3 mg / 0.5 (3 ml) UD INH SCH ×4 (01:08→20:45)
[2017-09-19] MEDS: Acetylcysteine 20% Inhal Soln (4ml) INH SCH ×4 (01:09→20:45)
[2017-09-19 06:40] LABS: BASO # 0.1 K/uL (0.0-0.2); BASO % 0.5 % (0.0-2.0); EOS # 0.3 K/uL (0.0-0.7); EOS % 1.9 % (0.0-4.0); HEMATOCRIT 26.8 % (35.0-51.0); LYMPH % 12.3 % (20.0-40.0); MEAN CELL VOLUME 76.5 fL (80.0-94.0); MEAN CORPUSCULAR HEMOGLOBIN 24.5 pg (27.0-31.0); MEAN PLATELET VOLUME 7.6 fL (7.2-11.7); MONO # 0.9 K/uL (0.0-0.8); MONO % 5.9 % (0.0-10.0); RED CELL DISTRIBUTION WIDTH 24.5 % (11.5-14.5); WHITE BLOOD COUNT 15.9 K/uL (4.8-10.8)
[2017-09-19 06:45] LABS: POTASSIUM 4.8 mmol/L (3.6-5.2)
[2017-09-19 06:47] LABS: ALB/GLOB RATIO 0.6 (1.0-2.1); BILIRUBIN,TOTAL 0.4 mg/dL (0.2-1.3); TOTAL PROTEIN 6.9 g/dL (6.3-8.3)
[2017-09-19 06:48] LABS: CALCIUM 8.2 mg/dl (8.6-10.4)
[2017-09-19] MEDS: Sevelamer Carb 0.8 gm/Packet GT SCH (08:39)
[2017-09-19] MEDS: Lactobacillus Acidophilus 500 MU Cap PO SCH ×2 (09:05→17:42)
[2017-09-19] MEDS: Insulin Detemir 100 units/ml Vial (Levemir) SC SCH ×2 (09:06→21:28)
--- NOTE | 2017-09-19 09:47 | CP.PCM.PN ---
Objective - Vital Signs/Intake and Output Vital Signs (last 24 hours): Temp Pulse Resp BP Pulse Ox 99.2 F 98 H 29 H 127/46 L 100 09/19/17 08:00 09/19/17 08:00 09/19/17 08:00 09/19/17 07:36 09/19/17 08:00 Intake and Output: 09/19/17 09/19/17 06:59 18:59 Intake Total 700 250 Output Total 0 Balance 700 250 - Medications Medications: Current Medications Acetylcysteine (Acetylcysteine 20%) 4 ml INH RQ6 [facility] Last Admin: 09/19/17 07:48 Dose: 4 ml Albuterol/Ipratropium (Duoneb 3 Mg/0.5 Mg (3 Ml) Ud) 3 ml INH RQ6 [facility] Last Admin: 09/19/17 07:48 Dose: 3 ml Apixaban (Eliquis) 2.5 mg PO BID [facility] Last Admin: 09/19/17 09:05 Dose: 2.5 mg Aspirin (Aspirin Chewable) 81 mg PO DAILY [facility] Last Admin: 09/19/17 09:05 Dose: 81 mg Epoetin Chencho (Procrit) 10,000 unit IV MWF [facility] Last Admin: 09/16/17 09:32 Dose: 10,000 unit Famotidine (Pepcid) 20 mg PO DAILY [facility] Last Admin: 09/19/17 09:05 Dose: 20 mg Fluconazole (Diflucan) 200 mg PO DAILY [facility] Last Admin: 09/18/17 09:38 Dose: 200 mg Tigecycline 50 mg/ Sodium (Chloride) 100 mls @ 100 mls/hr IVPB Q12H [facility] Last Admin: 09/18/17 23:20 Dose: 100 mls/hr Insulin Aspart (Novolog) 0 unit SC Q6 [facility] PRN Reason: Protocol Last Admin: 09/19/17 05:49 Dose: 4 unit Insulin Detemir (Levemir) 43 unit SC Q12 [facility] Last Admin: 09/19/17 09:06 Dose: 43 unit Lactobacillus Acidophilus (Bacid Acidophilus) 1 cap PO BID [facility] Last Admin: 09/19/17 09:05 Dose: 1 cap Metoprolol Tartrate (Lopressor) 50 mg PO BID [facility] Last Admin: 09/19/17 09:23 Dose: Not Given Rosuvastatin Calcium (Crestor) 10 mg PO HS [facility] Last Admin: 08/26/17 22:41 Dose: 10 mg Sevelamer Carbonate (Renvela) 1.6 gm GT TIDCC [facility] Last Admin: 09/19/17 08:39 Dose: Not Given - Labs Labs: 09/19/17 06:28 09/19/17 06:28 PT 13.9 SECONDS (9.7-12.2) H 08/24/17 06:08 INR 1.2 08/24/17 06:08 APTT 55 SECONDS (21-34) H D 08/17/17 06:12
--- NOTE | 2017-09-19 10:01 | CP.PCM.PN ---
Subjective - Date & Time of Evaluation Date of Evaluation: 09/19/17 Time of Evaluation: 09:45 - Subjective Subjective: Hospitalist Progress Note Patient was seen and examined at 9:45 AM 09/19/17 554 A 77 year old male with extensive medical history (please see Assessment and Plans below) was admitted on 08/06/17 for evaluation of SOB and Chest Pain. He was planned for Cardiac Catheterization on 08/09/17. Patient then had Acute Respiratory Failure and had to be intubated and placed on vent. He is S/P Tracheostomy 08/22/17 and PEG Tube Placement 08/25/17. Please see details below. ROS are not possible as although patient is awake he is not answering (not shaking his head yes or no) Exam: - Head Exam Head Exam: NORMAL INSPECTION - Eye Exam Eye Exam: could not evaluate EOM due to patient's current status Pupil Exam: round, equal, and reactive to light - Respiratory Exam Respiratory Exam: Decreased Breath Sounds bilateral lower lung buchanan but limited due to lack of patient participation Additional comments: Trach Collar - Cardiovascular Exam Cardiovascular Exam: REGULAR RHYTHM, +S1, +S2 - GI/Abdominal Exam GI & Abdominal Exam: Distended, Soft, BSx4 , could not palpate liver and spleen , PEG Tube Insertion Site LUQ without evidence of cellutlitis. absent: Firm, Guarding, Rigid, Tenderness, Rebound Additional comments: obese habitus, Peg Tube insertion site without signs of cellulitis - Extremities Exam Extremities Exam: Normal Capillary Refill, Pedal Edema. absent: Tenderness Additional comments: Prevalon boots b/l - Neurological Exam Additional comments: Could not be performed due to lack of patient participation - Skin Skin Exam: Sacral Ulcer S/P debridement with healthy tissue at base/ subcutaneous fat visible with few scattered black areas. Shallow Ulcer Left outer ear that is healed. Right heal blister without surrounding signs of cellulitis (1) Acute Respiratory Failure ARDS Cardiac Arrest Pulmonary Edema Nonstemi Assessment and Plan: * Code Blue on 08/10: asystole, cardiopulmonary resuscitative measures initiated , requiring 3 epis, bicarbonate, ROSC achieved and intubated and brought to the ICU for further management; Patient in the ICU from 08/10 until present. * Pulmonary: Dr Mena (Dr. Jeffers covering until 09/04/17)-->help appreciated * Cardiology: Dr. Cortés on board-->help appreciated * GI (Dr. Wills) on board-->help appreciated * S/P Tracheostomy 08/22 * S/P Peg tube placement 08/25 * s/p insertion of right posterior chest tube 08/19-->removed 08/24/17 * There was consideration for possible thoracentesis of left side pleural effusion, evaluated by IR, there is no fluid to drain per Dr. Gross * Chest xray (08/26): right arm PICC is seen with the tip of distal subclavian vein. PICC may be used * Per cardiology, * Restart Aspirin 81mg PO daily * Patient does not need Plavix at this time * Recommend for Eliquis 2.5mg PO BID for atrial flutter * 08/27: patient is pending LTAC, he went eventually need cardiac catheterization when he has stabilized. Held statin secondary to elevated LFTs. Discussed with Dr. Cortés, lowered Amiodarone 200mg PO daily * 08/28: patient is pending LTAC, he went eventually need cardiac catheterization when he has stabilized. Liver function tests improving * 08/29: Rn Clinical Resource [facility] has sent request to insurance for authorization for LTAC-->pending * 09/06: pending social work/case management approval for LTAC * 09/07: pending social work/case management approval for LTAC * 09/08: Unable to get approval for LTAC; pending other options * 09/09: Transferred from step-down ICU to the floors * 09/13: Trasnferred back to ICU S/P Rapid Response for low blood pressure * 09/14: Currently on Acetylcysteine 20 % Neb Q6H and Duoneb Q6H * 09/15: Passy Flex Trach placed by Clinical Radiologist (2) Abnormal Stress Test History of AICD History of Coronary Artery Disease Assessment and Plan: * Cardiology (Dr. Cortés) on board-->help appreciated * TSH: 1.16; T4: 1.53 * Echocardiogram (08/08/17): left ventricle systolic function is severely impaired. EF: 25-30%; global hypokinesis of left ventricle mild aortic regurgitation. Mitral regurgitation is moderate. Moderate-severe pulmonary hypertension * Plan was for cardiac catheterization; delayed due to acute renal failure; Attempted gentle hydration and mucomyst on 08/09 to optimize prior to cath * On 08/10, patient was in asystole, ACLS protocol, ROSC achieved, intubated and transfered to the ICU. Patient in acute pulmonary edema. * Patient hospitalized in the ICU since 08/10/17 to present. * Medications: * Aspirin 81mg PO daily * Plavix d/c by cardiology * Lopressor 50mg PO bid * d/c Crestor 10mg POqHS secondary to rise in LFTS 08/27--->monitor LFTs daily * ARB d/c secondary to acute renal failure * 08/27: patient is pending LTAC, he went eventually need cardiac catheterization when he has stabilized. Held statin secondary to elevated LFTs. Discussed with Dr. Cortés, lowered Amiodarone 200mg PO daily * 08/28: He will eventually need cardiac catheterization when he has stabilized. Liver function tests improving. Statin is on hold (3) Atrial flutter Assessment and Plan: * Cardiology (Dr. Cortés) on board-->help appreciated * Refractory to Lopressor/Cardizem IVP * Eliquis 2.5mg PO bid * Amiodarone bolus-->Amiodarine drip on 08/24-->converted to Amiodarone 200mg PO TID on 08/26 and this was decreased to 200 mg 1x/day due to increased LFTs * 08/27: Discussed with Dr. Cortés, will lower Amiodarone 200mg PO daily and monitor LFTs. Statin held and tylenol d/c * 08/29: patient is pending LTAC, he will eventually need cardiac catheterization when he has stabilized. Liver function tests improving. Statin is on hold due to the elevated LFTs * 08/30: Cardiology discontinued the Amiodarone * 09/07: Held eliquis; will need to resume * 09/09: Eliquis resumed, off Amiodarone Status: Acute (4) Acute on Chronic Systolic CHF exacerbation Assessment and Plan: * Cardiology (Dr. Cortés) on board-->help appreciated * Transferred to the ICU on 08/10 following cardiac arrest and intubation. * Echocardiogram (08/08/17): left ventricular systolic function is severely impaired. EF: 25-30%; global hypokinesis of left ventricle mild aortic regurgitation. Mitral regurgitation is moderate. Moderate-severe pulmonary hypertension * Medications: * Aspirin 81mg PO daily * Plavix d/c by cardiology * Lopressor 50mg PO bid * d/c Crestor 10mg POqHS on 08/27 secondary to rise in LFTs * ARB d/c secondary to acute renal failure Status: Acute (5) Leukocytosis Assessment and Plan: * Patient's white count downtrending * Pleural Fluid 08/19/17 did not show any growth * Blood cultures (08/26): no growth X5 days * UA and urine culture (08/27): Urine Culture showed Yeast Species. * Patient has elevated LFTs-->did not start anti-fungal in light of LFTs New: * 09/05/17 Blood: gram positive cocci-->pending speciation * 09/05/17 Blood: no growth after 4 days * 09/07/17 Legionella Culture: negative * 09/07/17 Mycobacteria: negative * 09/07/17 Sputum: Enterocloace Bacter; yeast * 09/07/17 Blood: negative X 48 hours * 09/07/17 Blood: negative X 48 hours * 09/06: stool culture pending; has not had diarrhea or bowel movement * 09/07: Dr. Zimmer (covering Dr. Lawrence) to see the patient given elevated procalcitonin * Blood Culture 09/13/17 is negative to date and Urine Culture 09/13/17 showed Yeast Species * 09/14: Could this be secondary to the Septic Shock? Secondary to Osteomyelitis of the Sacrum? 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) and Meropenem 500 mg IV Q8H (09/13/17 through 09/16/17), Diflucan 200 mg PO 1x/day (09/13/17), Bactrim 10 mL PO Q12H (09/12/17 through 09/16/17), Tigecycline 50 mg IV Q12H (09/16/17 started because of VRE on Sacrum Wound Culture 09/14/17) * ESR 09/14/17 elevated at 89 * Bone Scan performed 09/17/17 to check for Osteomyelitis at the Sacrum: results are pending * Meropenem 500 mg IV Q12H (09/13/17 through 09/16/17: which will cover the Enterbacter in the Sputum 09/07/17 and the possibility of Sacral Osteomyelitis) * Antibiotics as of 09/17/17:Tigecycline (09/16/17: which will cover the VRE in Sacral Wound Culture 09/14/17 and the possibility of Sacral Osteomyelitis) and Diflucan 200 mg PO 1x/day (09/13/17: which will cover with Yeast in the Sputum, Urine, and Sacral Wound Culture) Status: Acute (6) Pneumonia Assessment and Plan: * Pulmonary (Dr. Mena) on board-->help appreciated; Dr. Jeffers covering while Dr. Mena away * Infectious Disease (Dr. Lawrence)-->help appreciated * Chest xray (08/26): right arm PICC is seen with the tip of distal subclavian vein. PICC may be used * Rapid A strep, Influenza A and B studies, Urine Legionella, Mycoplasma studies = Negative * Florastor 250mg PO bid * 08/07/17: +Strep Pneumoniae in the urine * Meropenem 500mg IV Q 8 hours (08/14/17 through 08/18/17) and Zosyn 2.25 mg IV Q6H (08/13/17 through 08/18/17) * Cefepime 1 gm IV Q24H: started on 08/19/17 and was discontinued by ID Dr. Lawrence on 08/30/17: monitor vitals and labs * s/p right posterior chest tube 08/19-08/24 * Sputum Culture 08/19/17 shows No growth * Pleural fluid 08/19/17: No growth * 09/07/17 Sputum: Enterocloace Bacter and Yeast Species: See Antibiotic treatment in previous Assessment and Plan * Sputum 09/10/17 shows NO AFB Status: Acute (7) HTN (hypertension) Assessment and Plan: * Lopressor 50mg PO bid * Lisinopril 5mg PO daily Status: Chronic (8) CKD (chronic kidney disease) on Dialysis Assessment and Plan: * Dr. Miranda (nephrology) consulted on the case * Hx of CKD-->Started on dialysis 08/15/17 * Kurtis catheter placed and removed 08/22 * s/p Right Chest Permcath 08/22 * Patient is on dialysis M-W-; oliguric * Phoslo 1334mg GT TID * Epoetin 10,000 unit IV MWF Status: Acute (9) Diabetes mellitus Assessment and Plan: * Accuchecks Q6H * HgbA1c 8.4 * Started peg feedings on 08/26/17 * Nepro-->50 ml/hour but this was held 09/13/17 due suspicion of Bowel Obstruction as NO bowel Movement since 09/07/17. This was restarted on after NO obstruction was observed on Obstruction Series 09/13/17 and after multiple bowel movement s/p Fleet Enema 09/13/17 (10) HLD (hyperlipidemia) Assessment and Plan: * 08/27: held Crestor 10 mg PO HS secondary to rise in LFTs * 08/29: Liver function tests improving; waiting to restart statin Status: Chronic (11) Anemia Assessment and Plan: * Heme-oncology (Dr. Giles bender) on board-->help appreciated * Likely iron deficiency anemia based on prior admissions * Ferritin 27.4, Iron 22, TIBC 322, % Saturation 7 * Ferric Sodium Gluconate 125mg IVPB daily (active 08/08-08/16) * Procrit 10,000 units -- * Monitor Hgb/Hct: stable Status: Chronic (12) History of DVT (deep vein thrombosis) Assessment and Plan: * Patient was previously on Eliquis for a prior history of DVT. * Repeat dopplers 08/09/17 are negative for DVT * Off Heparin Drip 08/17/17 * Started Eliquis 2.5mg PO BID for atrial flutter and history of DVT Status: Chronic (13) UTI Assessment and Plan: * Infectious disease (Dr. Lawrence) on board-->help appreciated * Exchange jaquez out and repeat urine cultures * Urine Culture 08/12/17 showed Gram Negative Rods: NO identification and NO sensitivities were performed * Meropenem 500mg IV Q 12hours (active since 08/14/17 through 08/18/17) to cover for UTI per ID * Repeat Urine Culture 08/18/17 shows NO growth * 08/25: reculture in light of leukocytosis * 08/27: pending urine studies * 08/30: Urine Culture 08/27/17 showed Yeast Species but no antifungal at that time secondary to recent history of Elevated LFTs * Urine Culture 09/13/17 showed Yeast Species: he is on Diflucan Status: Chronic (14) Confusion; Alzheimer's Dementia Assessment and Plan: * Per daughter, patient has been getting bouts of confusion over the past year but appears at baseline. Patient has not seen formal neurology as outpatient per daughter. Per , prior to event, noted Alzheimers' disease dx one year ago * CT head w/o contrast (08/10/17):acute os subacute lacune infarct is not excluded in the left basal ganglia inferiorly with definitive chronic lacune identified in the right basal ganglia superiorly. No acute or subacute lobar brain infarction is appreciable by standard CT criteria. Mild age-related neuro degenerative changes are identifed. No acute intracranial hemorrhage or mass is identified throughout * 08/26: Off Sedation-->patient moves all extremities randomly but does not follow directions * 08/27: off sedation-->patient is very calm, smiles at his * 08/28: off sedation-->patient is very calm Status: Chronic (15) Unstageable Sacral Ulcer, Left Ear Auricle Ulcer, Right Heal Ulcer Assessment and Plan: * Wound care on board * WOUND CARE NOTE (08/26)-->Pt with a sacral unstageable being treated with medihoney. No changes to dimensions at this time. Also, pt favoring Left side of head and has developed a 1x1 serous filled blister on his left ear. Primary nurse placed duoderm on the ear. Wound care nurse left duoderm in place , and recommends leaving it on until it falls off on its own. Pt has been NPO for several days, new peg inserted yesterday. Will be starting glucerna tube feedings later today. Albumin 3.3 * Turn q 2 hours * medihoney on unstageable ulcer * duoderm on left ear aurical ulcer: this is healed as of 09/15/17 * Prevalon Boots for Right Heal Blister 09/13/17 * 09/02/17: examined with Wound Care Nurse Emeka Samuel and periphery of the Sacral Wound is pink with some bleeding however center is still black and therefore still unstageable. Continue spray with Cavelon followed by thick coating with MediHoney followed by covering with OptiFoam once a day. * 09/03/17: Change of sacral ulcer dressing was performed by me with assitance from Nurse Esmer * 09/04/17: 09/03/17: Change of sacral ulcer dressing was performed by me with assistance from ALEXANDRA Unger * Per wound care note (09/07): sacral ulcer is stable per wound care nurse * 09/14/17: Sacral Ulcer is unstageable and area of blackness fills entire circumference. General Surgery consult placed to see if debridement is necessary. Continue Cavelon Kinney followed by paulina thick coating of MediHoney followed by covering with OptiFoam. * 09/15/17: Surgery Team debrided Sacral Ulcer and Bone Scan will need to be followed up which was performed 09/17/17 * 09/18/17: With the help of Nurse Guzman, applied Cavelon Kinney followed by thick coating of MediHoney followed by covering with OptiFoam * 09/19/17: Dressing for Sacral Ulcer already changed before my exam. Explained to Nurse Guzman that best application of MediHoney would be to cover the padding of the OptiFoam with it and then apply the OptiFoam to the ulcer. Status: Acute (16) Elevated LFTs Assessment and Plan: * 08/27: Yina * Discussed with cardiology-->changed amiodarone 200mg PO tid to amiodaron 200mg PO daily * D/C tylenol * Held Statin * patient is also on Rocephin to cover for pneumonia * Will not start antifungal * 08/29: starting to down trending since change in amiodarone dose; awaiting to restart statin * 08/30: continues to trend down. Amiodarone was discontinued * 09/01: AST, ALT, Alk Phos still elevated but stable * 09/02: AST, ALT, Alk Phos still elevated but stable * 09/03: LFTs stable * 09/04: LFTs stable Status: Acute (17). Hx Constipation * Monitor bowel movement * Multiple bowel movements on 09/13/17 and 09/14/17 that are well formed s/p Fleet Enema on 09/13/17 * 09/15/17: NO bowel movement * 09/16/17: Soft pasty bowel movement * 09/17/17: Soft pasty bowel movement * 09/18/17: NO bowel movement * 09/19/17: ordered one dose of Lactulose 20 gm via PEG as still no bowel movement (18). Hyponatremia * 09/19/17: at 127 monitor for now (19). Prophylactic measure Assessment and Plan: * Pepcid 20mg PO daily * Start Eliquis 2.5mg PO BID * s/p peg placement 08/25 * s/p trachesostomy 08/22 * s/p Permcath placement 08/22 removal Kurtis catheter * s/p right posterior chest tube 08/19-->removed 08/24 * s/p Right Arm PICC 08/26 * (Jovita Serrano): -->number provided to the nurse- ->consented for peg placement; discussed about LTAC 08/26 * Spoke with Dr. Pickard, MARIAJOSE regarding patient's hospitalization up until this point 08/2609/01/17: Dr. Cullen Barth spoke with the patient's [place] with the assistance of Nurse Campos on 3 tower (as multiple attempts of using [employer] indicated that all of the [place] translators were busy) and explained all of the patient's diagnosises. 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 Her ultimate wish is to take patient to [facility] where their children live. I explained to patient that I would not know how that would be coordinated but that the Social Workers/Training Analyst at LTAC may be of assistance in this regard. I also informed her that I am not aware of any insurance company that would finance this request. She understands that the patient is awaiting insurance approval for LTAC. 09/01/17 and 09/02/17: Dr. Cullen Barth spoke with Assembler Crimper Demetria and we are still awaiting insurance authorization for LTAC placement. 09/05/17: Spoke with [facility] social service worker, wean trials sent to LTAC pending approval no word yet regarding approval. Ordered for repeat cultures given uptrend in white count. 09/06/17: pending repeat cultures in light of elevated procalcitonin; ID recommended to reculture. Note: patients PICC lined had clogged ports. Red port remains clogged in spite of cath rafaela. Blue port improved after cath rafaela. Possible may need to remove line to r/o infected line. Strong suspicion due to patient's pneumonia given he has thick secretions. 09/07/17: Infectious disease. pending repeat cultures in light of elevated procalcitonin; Note: patients PICC lined had clogged ports. Red port remains clogged in spite of cath rafaela. Blue port improved after cath rafaela. Hip xray negative for acute fracture. There are no noted falls. 09/08/17: Patient denied for LTAC; awaiting for other options from case management/social work. Resident Daniel spoke with Dr. Cortés, patient be transferred under regular bed, when bed is available. Infectious disease on board; Patient started on IV Vancomycin in light of + blood culture. Pending chest xray. 09/09/17: Patient denied for LTAC; awaiting for other options from case management/social work with kamlesh verdin support. Patient started on IV Vancomycin MWF in light of + blood culture. Pending chest xray. F/U sputum with ID. f/u latest blood cultures. 09/13/17: Rapid response for low blood pressure and elevated WBC likely Septic Shock. Started on Levophed, added Meropenem to Vancomycin and 1 dose of Gentamycin given after speaking with ID. Ordered Obstruction Series as no bowel movement since 09/07/17. F/U Shock Panel. Discussed with ICU Resident to arrange for Change of Right Arm Midline line and Trach Collar. 09/14/17: Will await results of Blood Culture 09/13/17 to determine if the Right Arm Midline, Right Chest Perm Cath, and Trach Collar needs to be changed. Spoke with Assembler Crimper Demetria in ICU and patient information has been sent to [facility] (they accept patients on Trach) and she is awaiting to hear back from them before submitting approval request to insurance [employer]. 09/15/17: Passy Flex Trach placed by Clinical Radiologist. Surgical Team for debridement of Sacral Ulcer. Spoke with patient's ([place] Denisa [id number]) and explained/updated her on patient condition and obtained consent for sacral ulcer debridement. 09/16/17: Still awaiting performance of Sacral Bone Scan 09/17/17: Bone Scan performed and awaiting results 09/18/17: Awaiting Bone Scan Report 09/19/17: Still awaiting Bone Scan Report. Spoke again with Assembler Crimper Demetria and NO word yet from [facility] or [facility] (they do treat patients with Trachs). Cullen Barth D.O. Objective - Vital Signs/Intake and Output Vital Signs (last 24 hours): Temp Pulse Resp BP Pulse Ox 99.2 F 98 H 29 H 127/46 L 100 09/19/17 08:00 09/19/17 08:00 09/19/17 08:00 09/19/17 07:36 09/19/17 08:00 Intake and Output: 09/19/17 09/19/17 06:59 18:59 Intake Total 700 250 Output Total 0 Balance 700 250 - Medications Medications: Current Medications Acetylcysteine (Acetylcysteine 20%) 4 ml INH RQ6 [facility] Last Admin: 09/19/17 07:48 Dose: 4 ml Albuterol/Ipratropium (Duoneb 3 Mg/0.5 Mg (3 Ml) Ud) 3 ml INH RQ6 [facility] Last Admin: 09/19/17 07:48 Dose: 3 ml Apixaban (Eliquis) 2.5 mg PO BID [facility] Last Admin: 09/19/17 09:05 Dose: 2.5 mg Aspirin (Aspirin Chewable) 81 mg PO DAILY [facility] Last Admin: 09/19/17 09:05 Dose: 81 mg Epoetin Chencho (Procrit) 10,000 unit IV MWF [facility] Last Admin: 09/16/17 09:32 Dose: 10,000 unit Famotidine (Pepcid) 20 mg PO DAILY [facility] Last Admin: 09/19/17 09:05 Dose: 20 mg Fluconazole (Diflucan) 200 mg PO DAILY [facility] Last Admin: 09/18/17 09:38 Dose: 200 mg Tigecycline 50 mg/ Sodium (Chloride) 100 mls @ 100 mls/hr IVPB Q12H [facility] Last Admin: 09/18/17 23:20 Dose: 100 mls/hr Insulin Aspart (Novolog) 0 unit SC Q6 [facility]NA[facility]O PRN Reason: Protocol Last Admin: 09/19/17 05:49 Dose: 4 unit Insulin Detemir (Levemir) 43 unit SC Q12 [facility] Last Admin: 09/19/17 09:06 Dose: 43 unit Lactobacillus Acidophilus (Bacid Acidophilus) 1 cap PO BID [facility] FERNANDO Last Admin: 09/19/17 09:05 Dose: 1 cap Metoprolol Tartrate (Lopressor) 50 mg PO BID [facility] Last Admin: 09/19/17 09:23 Dose: Not Given Rosuvastatin Calcium (Crestor) 10 mg PO HS [facility]ERNAND[facility] Last Admin: 08/26/17 22:41 Dose: 10 mg Sevelamer Carbonate (Renvela) 1.6 gm GT TIDCC [facility] Last Admin: 09/19/17 08:39 Dose: Not Given - Labs Labs: 09/19/17 06:28 09/19/17 06:28 PT 13.9 SECONDS (9.7-12.2) H 08/24/17 06:08 INR 1.2 08/24/17 06:08 APTT 55 SECONDS (21-34) H D 08/17/17 06:12
--- NOTE | 2017-09-19 10:52 | CP.PCM.PN ---
Subjective - Date & Time of Evaluation Date of Evaluation: 09/19/17 Time of Evaluation: 10:45 - Subjective Subjective: Seen on dialysis- BP stable with less UF goal Same confusional state Remains on trach collar formulary ran out of renvela BUN elevated likely due to catabolic effect of tygacil Objective - Vital Signs/Intake and Output Vital Signs (last 24 hours): Temp Pulse Resp BP Pulse Ox 99.2 F 96 H 17 132/36 L 100 09/19/17 08:00 09/19/17 10:14 09/19/17 10:14 09/19/17 10:14 09/19/17 10:14 Intake and Output: 09/19/17 09/19/17 06:59 18:59 Intake Total 700 250 Output Total 0 Balance 700 250 - Medications Medications: Current Medications Acetylcysteine (Acetylcysteine 20%) 4 ml INH RQ6 [facility] Last Admin: 09/19/17 07:48 Dose: 4 ml Albuterol/Ipratropium (Duoneb 3 Mg/0.5 Mg (3 Ml) Ud) 3 ml INH RQ6 [facility] Last Admin: 09/19/17 07:48 Dose: 3 ml Apixaban (Eliquis) 2.5 mg PO BID [facility] Last Admin: 09/19/17 09:05 Dose: 2.5 mg Aspirin (Aspirin Chewable) 81 mg PO DAILY [facility] Last Admin: 09/19/17 09:05 Dose: 81 mg Calcium Acetate (Phoslo) 667 mg GT TID [facility] Epoetin Chencho (Procrit) 10,000 unit IV MWF [facility] Last Admin: 09/16/17 09:32 Dose: 10,000 unit Famotidine (Pepcid) 20 mg PO DAILY [facility] Last Admin: 09/19/17 09:05 Dose: 20 mg Fluconazole (Diflucan) 200 mg PO DAILY [facility] Last Admin: 09/18/17 09:38 Dose: 200 mg Tigecycline 50 mg/ Sodium (Chloride) 100 mls @ 100 mls/hr IVPB Q12H [facility] Last Admin: 09/18/17 23:20 Dose: 100 mls/hr Insulin Aspart (Novolog) 0 unit SC Q6 [facility] PRN Reason: Protocol Last Admin: 09/19/17 05:49 Dose: 4 unit Insulin Detemir (Levemir) 43 unit SC Q12 [facility] Last Admin: 09/19/17 09:06 Dose: 43 unit Lactobacillus Acidophilus (Bacid Acidophilus) 1 cap PO BID [facility] Last Admin: 09/19/17 09:05 Dose: 1 cap Metoprolol Tartrate (Lopressor) 50 mg PO BID [facility] Last Admin: 09/19/17 09:23 Dose: Not Given Rosuvastatin Calcium (Crestor) 10 mg PO HS [facility] Last Admin: 08/26/17 22:41 Dose: 10 mg - Labs Labs: 09/19/17 06:28 09/19/17 06:28 PT 13.9 SECONDS (9.7-12.2) H 08/24/17 06:08 INR 1.2 08/24/17 06:08 APTT 55 SECONDS (21-34) H D 08/17/17 06:12 - Constitutional Appears: No Acute Distress, Chronically Ill - Head Exam Head Exam: ATRAUMATIC, NORMAL INSPECTION - Eye Exam Eye Exam: EOMI, Normal appearance - Neck Exam Neck Exam: Normal Inspection. absent: Tenderness - Respiratory Exam Respiratory Exam: Rhonchi, NORMAL BREATHING PATTERN - Cardiovascular Exam Cardiovascular Exam: REGULAR RHYTHM, +S1 - GI/Abdominal Exam GI & Abdominal Exam: Soft. absent: Tenderness - Extremities Exam Extremities Exam: Normal Inspection. absent: Tenderness - Neurological Exam Neurological Exam: Altered, Awake, CN II-XII Intact - Skin Skin Exam: Dry, Warm Assessment and Plan (1) Acute on chronic renal failure Status: Resolved (2) CAD (coronary artery disease) Status: Chronic (3) CHF exacerbation Status: Chronic (4) Type 2 diabetes mellitus with diabetic nephropathy Status: Acute (5) Cardiorenal disease Status: Acute (6) ESRD (end stage renal disease) Status: Acute - Assessment and Plan (Free Text) Plan: Increase time on machine as BUN elevated Change renvela to ca acetate as ca lower now
--- NOTE | 2017-09-19 11:41 | CP.PCM.PN ---
<Danni Almaraz - Last Filed: 09/19/17 12:10> Subjective - Date & Time of Evaluation Date of Evaluation: 09/19/17 Time of Evaluation: 11:00 - Subjective Subjective: Pulmonology Note for Dr. Mena's Service Patient was seen and examined at bedside. Currently getting hemodialysis. Currently not on pressors. Tracheostomy changed to fenestrated one. Status post debridement. Denied fever, chills, headache, chest pain, SOB, cough abdominal pain, n/v/d/c, or urinary symptoms. Objective - Vital Signs/Intake and Output Vital Signs (last 24 hours): Temp Pulse Resp BP Pulse Ox 99.2 F 99 H 12 105/47 L 100 09/19/17 08:00 09/19/17 11:13 09/19/17 11:13 09/19/17 11:13 09/19/17 11:13 Intake and Output: 09/19/17 09/19/17 06:59 18:59 Intake Total 700 250 Output Total 0 Balance 700 250 - Medications Medications: Current Medications Acetylcysteine (Acetylcysteine 20%) 4 ml INH RQ6 [facility] Last Admin: 09/19/17 07:48 Dose: 4 ml Albuterol/Ipratropium (Duoneb 3 Mg/0.5 Mg (3 Ml) Ud) 3 ml INH RQ6 [facility] Last Admin: 09/19/17 07:48 Dose: 3 ml Apixaban (Eliquis) 2.5 mg PO BID [facility] Last Admin: 09/19/17 09:05 Dose: 2.5 mg Aspirin (Aspirin Chewable) 81 mg PO DAILY [facility] Last Admin: 09/19/17 09:05 Dose: 81 mg Calcium Acetate (Phoslo) 667 mg GT TID [facility] Epoetin Chencho (Procrit) 10,000 unit IV MWF [facility] Last Admin: 09/16/17 09:32 Dose: 10,000 unit Famotidine (Pepcid) 20 mg PO DAILY [facility] Last Admin: 09/19/17 09:05 Dose: 20 mg Fluconazole (Diflucan) 200 mg PO DAILY [facility] Last Admin: 09/18/17 09:38 Dose: 200 mg Tigecycline 50 mg/ Sodium (Chloride) 100 mls @ 100 mls/hr IVPB Q12H [facility] Last Admin: 10/22/17 23:20 Dose: 100 mls/hr Insulin Aspart (Novolog) 0 unit SC Q6 [facility] PRN Reason: Protocol Last Admin: 09/19/17 05:49 Dose: 4 unit Insulin Detemir (Levemir) 43 unit SC Q12 [facility] Last Admin: 09/19/17 09:06 Dose: 43 unit Lactobacillus Acidophilus (Bacid Acidophilus) 1 cap PO BID [facility] Last Admin: 09/19/17 09:05 Dose: 1 cap Metoprolol Tartrate (Lopressor) 50 mg PO BID [facility] Last Admin: 09/19/17 09:23 Dose: Not Given Rosuvastatin Calcium (Crestor) 10 mg PO HS [facility] Last Admin: 08/26/17 22:41 Dose: 10 mg - Labs Labs: 09/19/17 06:28 09/19/17 06:28 PT 13.9 SECONDS (9.7-12.2) H 08/24/17 06:08 INR 1.2 08/24/17 06:08 APTT 55 SECONDS (21-34) H D 08/17/17 06:12 - Additional Findings Additional findings: - Head Exam Head Exam: NORMAL INSPECTION - Eye Exam Eye Exam: could not evaluate EOM due to patient's current status Pupil Exam: round, equal, and reactive to light - Respiratory Exam Respiratory Exam: Decreased Breath Sounds bilateral lower lung buchanan but limited due to lack of patient participation Additional comments: Trach Collar - Cardiovascular Exam Cardiovascular Exam: REGULAR RHYTHM, +S1, +S2 - GI/Abdominal Exam GI & Abdominal Exam: Distended, Soft, BSx4 , could not palpate liver and spleen , PEG Tube Insertion Site LUQ without evidence of cellutlitis. absent: Firm, Guarding, Rigid, Tenderness, Rebound Additional comments: obese habitus, Peg Tube insertion site without signs of cellulitis - Extremities Exam Extremities Exam: Normal Capillary Refill, Pedal Edema. absent: Tenderness Additional comments: Prevalon boots b/l - Neurological Exam Additional comments: Could not be performed due to lack of patient participation - Skin Skin Exam: Sacral Ulcer S/P debridement with healthy tissue at base/ subcutaneous fat visible with few scattered black areas. Shallow Ulcer Left outer ear that is healed. Right heal blister without surrounding signs of cellulitis Assessment and Plan - Assessment and Plan (Free Text) Plan: Acute Respiratory Failure ARDS Cardiac Arrest Pulmonary Edema Nonstemi S/P Tracheostomy 08/22 S/P Peg tube placement 08/25 Currently on Acetylcysteine 20 % Neb Q6H and Duoneb Q6H Passy Flex Trach placed by Patient Coordinator Front Desk Acute on chronic renal failure CHF (congestive heart failure) CKD (chronic kidney disease) Pneumonia Diflucan and Tigecycline Q12 History of DVT (deep vein thrombosis) DW Dr. Mena, Sung MCKEON, PGY-1 <Elkin Mena S - Last Filed: 09/19/17 13:33> Objective - Vital Signs/Intake and Output Vital Signs (last 24 hours): Temp Pulse Resp BP Pulse Ox 98 F 103 H 16 133/55 L 100 09/19/17 10:00 09/19/17 13:30 09/19/17 13:30 09/19/17 13:30 09/19/17 13:30 Intake and Output: 09/19/17 09/19/17 06:59 18:59 Intake Total 700 250 Output Total 0 Balance 700 250 - Medications Medications: Current Medications Acetylcysteine (Acetylcysteine 20%) 4 ml INH RQ6 [facility] Last Admin: 09/19/17 07:48 Dose: 4 ml Albuterol/Ipratropium (Duoneb 3 Mg/0.5 Mg (3 Ml) Ud) 3 ml INH RQ6 [facility] Last Admin: 09/19/17 07:48 Dose: 3 ml Apixaban (Eliquis) 2.5 mg PO BID [facility] Last Admin: 09/19/17 09:05 Dose: 2.5 mg Aspirin (Aspirin Chewable) 81 mg PO DAILY [facility] Last Admin: 09/19/17 09:05 Dose: 81 mg Calcium Acetate (Phoslo) 667 mg GT TID [facility] Epoetin Chencho (Procrit) 10,000 unit IV MWF [facility] Last Admin: 09/19/17 13:15 Dose: 10,000 unit Famotidine (Pepcid) 20 mg PO DAILY [facility] Last Admin: 09/19/17 09:05 Dose: 20 mg Fluconazole (Diflucan) 200 mg PO DAILY [facility] Last Admin: 09/18/17 09:38 Dose: 200 mg Tigecycline 50 mg/ Sodium (Chloride) 100 mls @ 100 mls/hr IVPB Q12H [facility] Last Admin: 09/18/17 23:20 Dose: 100 mls/hr Insulin Aspart (Novolog) 0 unit SC Q6 [facility] PRN Reason: Protocol Last Admin: 09/19/17 12:02 Dose: 2 unit Insulin Detemir (Levemir) 43 unit SC Q12 [facility] Last Admin: 09/19/17 09:06 Dose: 43 unit Lactobacillus Acidophilus (Bacid Acidophilus) 1 cap PO BID [facility] Last Admin: 09/19/17 09:05 Dose: 1 cap Lactulose (Enulose) 20 gm PO ONCE ONE Stop: 09/19/17 13:46 Metoprolol Tartrate (Lopressor) 50 mg PO BID [facility] Last Admin: 09/19/17 09:23 Dose: Not Given Rosuvastatin Calcium (Crestor) 10 mg PO HS [facility] Last Admin: 08/26/17 22:41 Dose: 10 mg - Labs Labs: 09/19/17 06:28 09/19/17 06:28 PT 13.9 SECONDS (9.7-12.2) H 08/24/17 06:08 INR 1.2 08/24/17 06:08 APTT 55 SECONDS (21-34) H D 08/17/17 06:12 Assessment and Plan (1) Cardiac arrest Status: Acute (2) Pneumonia Status: Acute (3) History of DVT (deep vein thrombosis) Status: Acute (4) CKD (chronic kidney disease) Status: Chronic (5) Acute on chronic renal failure Status: Resolved (6) CHF (congestive heart failure) Status: Acute Attending/Attestation - Attestation I have personally seen and examined this patient.: Yes I have fully participated in the care of the patient.: Yes I have reviewed all pertinent clinical information, including history, physical exam and plan: Yes Notes (Text): 09/19/17 13:32 patient seen and examined in the intensive care unit Patient getting hemodialysis Normotensive Awake Continue antibiotics Status post debridement Followup ABG and chest X.
--- NOTE | 2017-09-19 12:44 | NM ---
PROCEDURE: Whole Body Bone Scan HISTORY: Sacrum, r/o osteomyelitis COMPARISON: None available. TECHNIQUE: Following administration of 24.1 miCu of Tc MDP multiplanar whole body images were obtained. FINDINGS: Flow component: No focal abnormalities identified. Blood pool component: No focal abnormalities identified Delayed images at 3:00: Degenerative changes visualized lower lumbar spine. Degenerative changes left hip. Other findings: None. IMPRESSION: Negative study for acute osseous process/sacral osteomyelitis.
[2017-09-19] MEDS: Epoetin Alfa 10,000 unit/ml Dialysis IV SCH (13:15)
--- NOTE | 2017-09-19 15:45 | CP.PCM.PN ---
Subjective - Date & Time of Evaluation Date of Evaluation: 09/19/17 Time of Evaluation: 15:42 - Subjective Subjective: Surgery: Dr. Bay Pt seen and examined. No acute events overnight. Pt is non-verbal. Does not appear in any distress. Objective - Vital Signs/Intake and Output Vital Signs (last 24 hours): Temp Pulse Resp BP Pulse Ox 98.2 F 93 H 13 135/49 L 98 09/19/17 12:00 09/19/17 14:12 09/19/17 14:12 09/19/17 14:12 09/19/17 14:12 Intake and Output: 09/19/17 09/19/17 06:59 18:59 Intake Total 700 550 Output Total 0 Balance 700 550 - Medications Medications: Current Medications Acetylcysteine (Acetylcysteine 20%) 4 ml INH RQ6 [facility] Last Admin: 09/19/17 13:51 Dose: 4 ml Albuterol/Ipratropium (Duoneb 3 Mg/0.5 Mg (3 Ml) Ud) 3 ml INH RQ6 [facility] Last Admin: 09/19/17 13:51 Dose: 3 ml Apixaban (Eliquis) 2.5 mg PO BID [facility] Last Admin: 09/19/17 09:05 Dose: 2.5 mg Aspirin (Aspirin Chewable) 81 mg PO DAILY [facility] Last Admin: 09/19/17 09:05 Dose: 81 mg Calcium Acetate (Phoslo) 667 mg GT TID [facility] Last Admin: 09/19/17 13:39 Dose: 667 mg Epoetin Chencho (Procrit) 10,000 unit IV MWF [facility] Last Admin: 09/19/17 13:15 Dose: 10,000 unit Famotidine (Pepcid) 20 mg PO DAILY [facility] Last Admin: 09/19/17 09:05 Dose: 20 mg Fluconazole (Diflucan) 200 mg PO DAILY [facility] Last Admin: 09/19/17 13:40 Dose: 200 mg Tigecycline 50 mg/ Sodium (Chloride) 100 mls @ 100 mls/hr IVPB Q12H [facility] Last Admin: 09/19/17 13:40 Dose: 100 mls/hr Insulin Aspart (Novolog) 0 unit SC Q6 [facility] PRN Reason: Protocol Last Admin: 09/19/17 12:02 Dose: 2 unit Insulin Detemir (Levemir) 43 unit SC Q12 [facility] Last Admin: 09/19/17 09:06 Dose: 43 unit Lactobacillus Acidophilus (Bacid Acidophilus) 1 cap PO BID [facility] Last Admin: 09/19/17 09:05 Dose: 1 cap Metoprolol Tartrate (Lopressor) 50 mg PO BID [facility] Last Admin: 09/19/17 09:23 Dose: Not Given Rosuvastatin Calcium (Crestor) 10 mg PO HS [facility] Last Admin: 08/26/17 22:41 Dose: 10 mg - Labs Labs: 09/19/17 06:28 09/19/17 06:28 PT 13.9 SECONDS (9.7-12.2) H 08/24/17 06:08 INR 1.2 08/24/17 06:08 APTT 55 SECONDS (21-34) H D 08/17/17 06:12 - Constitutional Appears: Non-toxic, No Acute Distress - Head Exam Head Exam: ATRAUMATIC, NORMOCEPHALIC - Eye Exam Eye Exam: EOMI - ENT Exam ENT Exam: Mucous Membranes Moist - Respiratory Exam Respiratory Exam: NORMAL BREATHING PATTERN. absent: Accessory Muscle Use, Respiratory Distress - GI/Abdominal Exam GI & Abdominal Exam: Soft. absent: Tenderness Additional comments: PEG in place - Extremities Exam Extremities Exam: absent: Calf Tenderness, Pedal Edema - Neurological Exam Neurological Exam: Alert, Awake. absent: Oriented x3 - Skin Additional comments: Sacral decub stage III 10x10 cm Assessment and Plan - Assessment and Plan (Free Text) Assessment: 77M w. Stage III sacral decub -Daily dressing changes demetrius haines -c/w abx -d/w attending Sharda PGY3
--- NOTE | 2017-09-19 18:59 | CP.PCM.PN ---
Subjective - Date & Time of Evaluation Date of Evaluation: 09/19/17 Time of Evaluation: 04:00 - Subjective Subjective: dictated Objective - Vital Signs/Intake and Output Vital Signs (last 24 hours): Temp Pulse Resp BP Pulse Ox 99 F 96 H 27 H 104/43 L 100 09/19/17 16:00 09/19/17 18:31 09/19/17 18:31 09/19/17 18:31 09/19/17 18:31 Intake and Output: 09/19/17 09/19/17 06:59 18:59 Intake Total 700 1000 Output Total 0 Balance 700 1000 - Medications Medications: Current Medications Acetylcysteine (Acetylcysteine 20%) 4 ml INH RQ6 [facility] Last Admin: 09/19/17 13:51 Dose: 4 ml Albuterol/Ipratropium (Duoneb 3 Mg/0.5 Mg (3 Ml) Ud) 3 ml INH RQ6 [facility] Last Admin: 09/19/17 13:51 Dose: 3 ml Apixaban (Eliquis) 2.5 mg PO BID [facility] Last Admin: 09/19/17 17:42 Dose: 2.5 mg Aspirin (Aspirin Chewable) 81 mg PO DAILY [facility] Last Admin: 09/19/17 09:05 Dose: 81 mg Calcium Acetate (Phoslo) 667 mg GT TID [facility] Last Admin: 09/19/17 17:42 Dose: 667 mg Epoetin Chencho (Procrit) 10,000 unit IV MWF [facility] Last Admin: 09/19/17 13:15 Dose: 10,000 unit Famotidine (Pepcid) 20 mg PO DAILY [facility] Last Admin: 09/19/17 09:05 Dose: 20 mg Fluconazole (Diflucan) 200 mg PO DAILY [facility] Last Admin: 09/19/17 13:40 Dose: 200 mg Tigecycline 50 mg/ Sodium (Chloride) 100 mls @ 100 mls/hr IVPB Q12H [facility] Last Admin: 09/19/17 13:40 Dose: 100 mls/hr Insulin Aspart (Novolog) 0 unit SC Q6 [facility] PRN Reason: Protocol Last Admin: 09/19/17 17:38 Dose: Not Given Insulin Detemir (Levemir) 43 unit SC Q12 [facility] Last Admin: 09/19/17 09:06 Dose: 43 unit Lactobacillus Acidophilus (Bacid Acidophilus) 1 cap PO BID [facility] Last Admin: 09/19/17 17:42 Dose: 1 cap Metoprolol Tartrate (Lopressor) 50 mg PO BID [facility] Last Admin: 09/19/17 17:44 Dose: 50 mg Rosuvastatin Calcium (Crestor) 10 mg PO HS [facility] Last Admin: 08/26/17 22:41 Dose: 10 mg - Labs Labs: 09/19/17 06:28 09/19/17 06:28 PT 13.9 SECONDS (9.7-12.2) H 08/24/17 06:08 INR 1.2 08/24/17 06:08 APTT 55 SECONDS (21-34) H D 08/17/17 06:12
--- NOTE | 2017-09-19 22:00 | CP.PCM.PN ---
Subjective - Date & Time of Evaluation Date of Evaluation: 09/19/17 Time of Evaluation: 15:05 - Subjective Subjective: Patient seen and evaluated Comfortable Denies chest pain and dyspnea Physical Examination - Constitutional Appears: Non-toxic, No Acute Distress - Head Exam Head Exam: ATRAUMATIC - Eye Exam Eye Exam: EOMI - Neck Exam Neck Exam: Full ROM - Cardiovascular Exam Cardiovascular Exam: Irregular Rhythm, +S1, +S2 - GI/Abdominal Exam GI & Abdominal Exam: Soft, Normal Bowel Sounds - Extremities Exam Extremities Exam: Full ROM - Neurological Exam Neurological Exam: Altered - Psychiatric Exam Psychiatric exam: Flat Affect - Skin Skin Exam: Dry, Warm Objective - Vital Signs/Intake and Output Vital Signs (last 24 hours): Temp Pulse Resp BP Pulse Ox 98.9 F 94 H 28 H 104/42 L 100 09/19/17 20:00 09/19/17 20:32 09/19/17 20:32 09/19/17 20:32 09/19/17 20:32 Intake and Output: 09/19/17 09/20/17 18:59 06:59 Intake Total 1000 Balance 1000 - Medications Medications: Current Medications Acetylcysteine (Acetylcysteine 20%) 4 ml INH RQ6 [facility] Last Admin: 09/19/17 20:45 Dose: 4 ml Albuterol/Ipratropium (Duoneb 3 Mg/0.5 Mg (3 Ml) Ud) 3 ml INH RQ6 [facility] Last Admin: 09/19/17 20:45 Dose: 3 ml Apixaban (Eliquis) 2.5 mg PO BID [facility] Last Admin: 09/19/17 17:42 Dose: 2.5 mg Aspirin (Aspirin Chewable) 81 mg PO DAILY [facility] Last Admin: 09/19/17 09:05 Dose: 81 mg Calcium Acetate (Phoslo) 667 mg GT TID [facility] Last Admin: 09/19/17 17:42 Dose: 667 mg Epoetin Chencho (Procrit) 10,000 unit IV MWF [facility] Last Admin: 09/19/17 13:15 Dose: 10,000 unit Famotidine (Pepcid) 20 mg PO DAILY [facility] Last Admin: 09/19/17 09:05 Dose: 20 mg Fluconazole (Diflucan) 200 mg PO DAILY [facility] Last Admin: 09/19/17 13:40 Dose: 200 mg Tigecycline 50 mg/ Sodium (Chloride) 100 mls @ 100 mls/hr IVPB Q12H [facility] Last Admin: 09/19/17 13:40 Dose: 100 mls/hr Insulin Aspart (Novolog) 0 unit SC Q6 [facility] PRN Reason: Protocol Last Admin: 09/19/17 17:38 Dose: Not Given Insulin Detemir (Levemir) 43 unit SC Q12 [facility] Last Admin: 09/19/17 21:28 Dose: 43 unit Lactobacillus Acidophilus (Bacid Acidophilus) 1 cap PO BID [facility] Last Admin: 09/19/17 17:42 Dose: 1 cap Metoprolol Tartrate (Lopressor) 50 mg PO BID [facility] Last Admin: 09/19/17 17:44 Dose: 50 mg Rosuvastatin Calcium (Crestor) 10 mg PO HS [facility] Last Admin: 08/26/17 22:41 Dose: 10 mg - Labs Labs: 09/19/17 06:28 09/19/17 06:28 PT 13.9 SECONDS (9.7-12.2) H 08/24/17 06:08 INR 1.2 08/24/17 06:08 APTT 55 SECONDS (21-34) H D 08/17/17 06:12 Assessment and Plan - Assessment and Plan (Free Text) Assessment: SIRS Hypotensive event with tachycardia yesterday Considerations for sacral wound. Concepcion cultures- Wound cultures grew out Vancomycin Resistant Enteroccoci, Urine cuture- yeast species Has undergone wound debridement per Surgery Atrial Fibrillation Intermittent Rate controlled. On Metoprolol 50 mg PO BID, Eliquis 2.5 mg PO BID CAD, chest pain -No current plans for cardiac cath (acute respiratory failure and elevated Cr) , history of abnormal stress test -Elevated Troponin likely due to chest compressions during cardiac arrest 08/10 -No acute ST changes on EKG -Continue ASA, Crestor, Metoprolol. -Echocardiogram from 08/08/17 showed left ventricle systolic function is severely impaired. EF: 25-30%; global hypokinesis of LV mild AR. MR is moderate. Moderate-severe pulmonary hypertension Systolic CHF exacerbation -CXR 09/09: Diminished bilateral basilar airspace disease; stable cardiomegaly -BNP [id number] on 08/06/17 -Continue ASA, Crestor, Metoprolol -Echocardiogram from 08/08/17 showed left ventricle systolic function is severely impaired. EF: 25-30%; global hypokinesis of LV mild AR. MR is moderate. Moderate-severe pulmonary hypertesnion Dobutamine discontinued in light of atrial flutter-type episodes Diabetes Mellitus ISS Continue to monitor ESRD on HD Currently on HD On Procrit and Phoslo Nephro on the case Prophylaxis Pepcid 20 mg PO daily Eliquis 2.5 mg PO BID (Renal precautions) Disposition Awaiting Transfer to LT[facility]
--- NOTE | 2017-09-19 23:14 | PN ---
DATE: SUBJECTIVE: The patient remains in ICU, bed 5. He is nonverbal. He is drowsy at this time. PHYSICAL EXAMINATION: VITAL SIGNS: T-max is 99, heart rate of 104, blood pressure 121/43, and respirations are with a trach collar. HEENT: Head is atraumatic. NECK: Supple. LUNGS: Clear. Decreased breath sounds bilaterally. HEART: S1 and S2 regular, tachycardic. ABDOMEN: Soft and nontender. No guarding. No rigidity. He has a right PICC line. EXTREMITIES: Right extremity with protectors. He does have a sacral decubitus. LABORATORY DATA: White count today is 15.9, hemoglobin 8.6, hematocrit 26.9, and platelet count is 477. His white count increased since the last time with it, the white count which was 11.9 on 09/16/2017. Sodium is 128, BUN is 149, creatinine is 5.6. He remains with renal failure. His last culture from the sacrum came out VRE and he is on Tygacil. He is also on Diflucan at this time. We did a bone scan on 09/17/2017 to rule out any sacral osteomyelitis and it was negative for that. So at this time with this sacral decubitus, we need to continue antibiotics and position change. If he continues to have increasing white count, we will have to do septic workup again including blood, sputum, chest x-ray. At this time, I would just repeat the white count tomorrow morning. He is status post cardiopulmonary arrest, status post respiratory failure, renal failure, and pneumonia, acute respiratory distress syndrome, and hyponatremia now. He is being followed. Allan Lawrence MD
[2017-09-20] MEDS: Albuterol-Ipratrop 3 mg / 0.5 (3 ml) UD INH SCH ×4 (01:13→19:39)
[2017-09-20] MEDS: Acetylcysteine 20% Inhal Soln (4ml) INH SCH ×4 (01:13→19:39)
[2017-09-20 06:18] LABS: BASO # 0.1 K/uL (0.0-0.2); BASO % 0.6 % (0.0-2.0); EOS # 0.5 K/uL (0.0-0.7); EOS % 3.2 % (0.0-4.0); HEMATOCRIT 28.9 % (35.0-51.0); LYMPH # 2.5 K/uL (1.0-4.3); LYMPH % 15.5 % (20.0-40.0); MEAN CELL VOLUME 78.4 fL (80.0-94.0); MEAN CORPUSCULAR HEMOGLOBIN 24.5 pg (27.0-31.0); MEAN CORPUSCULAR HGB CONC 31.2 g/dL (33.0-37.0); MEAN PLATELET VOLUME 7.8 fL (7.2-11.7); MONO # 1.3 K/uL (0.0-0.8); MONO % 8.5 % (0.0-10.0); RED CELL DISTRIBUTION WIDTH 24.8 % (11.5-14.5); WHITE BLOOD COUNT 15.8 K/uL (4.8-10.8)
[2017-09-20] MEDS: (Novolog) Insulin Aspart, Recombinant 100 u/ml 10 ml vial SC SCH ×4 (06:19→23:49)
[2017-09-20 06:41] LABS: POTASSIUM 4.4 mmol/L (3.6-5.2)
[2017-09-20 06:43] LABS: ALB/GLOB RATIO 0.6 (1.0-2.1); BILIRUBIN,TOTAL 0.4 mg/dL (0.2-1.3)
[2017-09-20 06:44] LABS: CALCIUM 8.2 mg/dl (8.6-10.4); PHOSPHOROUS 7.1 mg/dL (2.5-4.5)
--- NOTE | 2017-09-20 09:36 | RAD ---
Chest x-ray single frontal view History: Pneumonia. Comparison: 09/09/2017 Findings: Lines and tubes stable position. Left-sided pacemaker. Moderate venous congestion. Left basilar airspace opacity with associated small left pleural effusion. Cardiomegaly. Prominent aorta. Degenerative changes in the spine and shoulders. Impression: No significant interval change.
[2017-09-20] MEDS: Lactobacillus Acidophilus 500 MU Cap PO SCH ×2 (09:55→17:56)
[2017-09-20] MEDS: Insulin Detemir 100 units/ml Vial (Levemir) SC SCH ×2 (09:56→21:32)
--- NOTE | 2017-09-20 11:07 | CP.PCM.PN ---
<Danni Almaraz - Last Filed: 09/20/17 11:17> Subjective - Date & Time of Evaluation Date of Evaluation: 09/20/17 Time of Evaluation: 09:00 - Subjective Subjective: Pulmonology Note for Dr. Mena's Service Patient was seen and examined at bedside. Currently not on pressors. Tracheostomy changed to fenestrated one. Status post debridement, continued antibiotics. Denied fever, chills, headache, chest pain, SOB, cough abdominal pain, n/v/d/c, or urinary symptoms. Objective - Vital Signs/Intake and Output Vital Signs (last 24 hours): Temp Pulse Resp BP Pulse Ox 98.9 F 107 H 18 117/46 L 100 09/20/17 08:00 09/20/17 08:32 09/20/17 08:32 09/20/17 08:32 09/20/17 08:32 Intake and Output: 09/20/17 09/20/17 06:59 18:59 Intake Total 450 Balance 450 - Medications Medications: Current Medications Acetylcysteine (Acetylcysteine 20%) 4 ml INH RQ6 [facility] Last Admin: 09/20/17 08:09 Dose: 4 ml Albuterol/Ipratropium (Duoneb 3 Mg/0.5 Mg (3 Ml) Ud) 3 ml INH RQ6 [facility] Last Admin: 09/20/17 08:09 Dose: 3 ml Apixaban (Eliquis) 2.5 mg PO BID [facility] Last Admin: 09/20/17 09:56 Dose: 2.5 mg Aspirin (Aspirin Chewable) 81 mg PO DAILY [facility] Last Admin: 09/20/17 09:55 Dose: 81 mg Calcium Acetate (Phoslo) 667 mg GT TID [facility] Last Admin: 09/20/17 09:55 Dose: 667 mg Epoetin Chencho (Procrit) 10,000 unit IV MWF [facility] Last Admin: 09/19/17 13:15 Dose: 10,000 unit Famotidine (Pepcid) 20 mg PO DAILY [facility] Last Admin: 09/20/17 09:55 Dose: 20 mg Fluconazole (Diflucan) 200 mg PO DAILY [facility] Last Admin: 09/20/17 09:56 Dose: 200 mg Tigecycline 50 mg/ Sodium (Chloride) 100 mls @ 100 mls/hr IVPB Q12H [facility] Last Admin: 09/19/17 23:29 Dose: 100 mls/hr Insulin Aspart (Novolog) 0 unit SC Q6 [facility] PRN Reason: Protocol Last Admin: 09/20/17 06:19 Dose: 2 unit Insulin Detemir (Levemir) 43 unit SC Q12 [facility] Last Admin: 09/20/17 09:56 Dose: 43 unit Lactobacillus Acidophilus (Bacid Acidophilus) 1 cap PO BID [facility] Last Admin: 09/20/17 09:55 Dose: 1 cap Metoprolol Tartrate (Lopressor) 50 mg PO BID [facility] Last Admin: 09/20/17 09:56 Dose: 50 mg Rosuvastatin Calcium (Crestor) 10 mg PO HS [facility] Last Admin: 08/26/17 22:41 Dose: 10 mg - Labs Labs: 09/20/17 06:04 09/20/17 06:04 PT 13.9 SECONDS (9.7-12.2) H 08/24/17 06:08 INR 1.2 08/24/17 06:08 APTT 55 SECONDS (21-34) H D 08/17/17 06:12 - Additional Findings Additional findings: - Head Exam Head Exam: NORMAL INSPECTION - Eye Exam Eye Exam: could not evaluate EOM due to patient's current status Pupil Exam: round, equal, and reactive to light - Respiratory Exam Respiratory Exam: Decreased Breath Sounds bilateral lower lung buchanan but limited due to lack of patient participation Additional comments: Trach Collar - Cardiovascular Exam Cardiovascular Exam: REGULAR RHYTHM, +S1, +S2 - GI/Abdominal Exam GI & Abdominal Exam: Distended, Soft, BSx4 , could not palpate liver and spleen , PEG Tube Insertion Site LUQ without evidence of cellutlitis. absent: Firm, Guarding, Rigid, Tenderness, Rebound Additional comments: obese habitus, Peg Tube insertion site without signs of cellulitis - Extremities Exam Extremities Exam: Normal Capillary Refill, Pedal Edema. absent: Tenderness Additional comments: Prevalon boots b/l - Neurological Exam Additional comments: Could not be performed due to lack of patient participation - Skin Skin Exam: Sacral Ulcer S/P debridement with healthy tissue at base/ subcutaneous fat visible with few scattered black areas. Shallow Ulcer Left outer ear that is healed. Right heal blister without surrounding signs of cellulitis Assessment and Plan - Assessment and Plan (Free Text) Plan: Acute Respiratory Failure ARDS Cardiac Arrest Pulmonary Edema NSTEMI S/P Tracheostomy 08/22 S/P Peg tube placement 08/25 Currently on Acetylcysteine 20 % Neb Q6H and Duoneb Q6H Passy Flex Trach placed by Sorting Machine Attendant CXR unchanged 09/20/17 Acute on chronic renal failure CHF (congestive heart failure) CKD (chronic kidney disease) Pneumonia Diflucan and Tigecycline Q12 History of DVT (deep vein thrombosis) DW Sung Ivey DO, PGY-1 <Elkin Mena S - Last Filed: 09/20/17 18:16> Objective - Vital Signs/Intake and Output Vital Signs (last 24 hours): Temp Pulse Resp BP Pulse Ox 99 F 95 H 14 110/64 100 09/20/17 16:00 09/20/17 16:31 09/20/17 16:31 09/20/17 16:31 09/20/17 16:31 Intake and Output: 09/20/17 09/20/17 06:59 18:59 Intake Total 450 350 Output Total 500 Balance 450 -150 - Medications Medications: Current Medications Acetylcysteine (Acetylcysteine 20%) 4 ml INH RQ6 [facility] Last Admin: 09/20/17 14:30 Dose: 4 ml Albuterol/Ipratropium (Duoneb 3 Mg/0.5 Mg (3 Ml) Ud) 3 ml INH RQ6 [facility] Last Admin: 09/20/17 14:30 Dose: 3 ml Apixaban (Eliquis) 2.5 mg PO BID [facility] Last Admin: 09/20/17 17:56 Dose: 2.5 mg Aspirin (Aspirin Chewable) 81 mg PO DAILY [facility] Last Admin: 09/20/17 09:55 Dose: 81 mg Calcium Acetate (Phoslo) 667 mg GT TID [facility] Last Admin: 09/20/17 17:56 Dose: 667 mg Epoetin Chencho (Procrit) 10,000 unit IV MWF [facility] Last Admin: 09/19/17 13:15 Dose: 10,000 unit Famotidine (Pepcid) 20 mg PO DAILY [facility] Last Admin: 09/20/17 09:55 Dose: 20 mg Fluconazole (Diflucan) 200 mg PO DAILY [facility] Last Admin: 09/20/17 09:56 Dose: 200 mg Tigecycline 50 mg/ Sodium (Chloride) 100 mls @ 100 mls/hr IVPB Q12H [facility] Last Admin: 09/20/17 11:50 Dose: 100 mls/hr Insulin Aspart (Novolog) 0 unit SC Q6 [facility] PRN Reason: Protocol Last Admin: 09/20/17 17:53 Dose: Not Given Insulin Detemir (Levemir) 43 unit SC Q12 [facility] Last Admin: 09/20/17 09:56 Dose: 43 unit Lactobacillus Acidophilus (Bacid Acidophilus) 1 cap PO BID [facility] Last Admin: 09/20/17 17:56 Dose: 1 cap Metoprolol Tartrate (Lopressor) 50 mg PO BID [facility] Last Admin: 09/20/17 17:56 Dose: 50 mg Rosuvastatin Calcium (Crestor) 10 mg PO HS [facility] Last Admin: 08/26/17 22:41 Dose: 10 mg - Labs Labs: 09/20/17 06:04 09/20/17 06:04 PT 13.9 SECONDS (9.7-12.2) H 08/24/17 06:08 INR 1.2 08/24/17 06:08 APTT 55 SECONDS (21-34) H D 08/17/17 06:12 Assessment and Plan (1) Cardiac arrest Status: Acute (2) Pneumonia Status: Acute (3) History of DVT (deep vein thrombosis) Status: Acute (4) CKD (chronic kidney disease) Status: Chronic (5) Acute on chronic renal failure Status: Resolved (6) CHF (congestive heart failure) Status: Acute Attending/Attestation - Attestation I have personally seen and examined this patient.: Yes I have fully participated in the care of the patient.: Yes I have reviewed all pertinent clinical information, including history, physical exam and plan: Yes Notes (Text): 09/20/17 18:16 Patient seen and examined. Condition improving Status post tracheostomy Continue antibiotics
--- NOTE | 2017-09-20 11:11 | CP.PCM.PN ---
<Uzma Sun DO - Last Filed: 09/20/17 17:05> Subjective - Date & Time of Evaluation Date of Evaluation: 09/20/17 Time of Evaluation: 11:08 - Subjective Subjective: Cardiology Progress Note for Dr. Cortés's service: Patient seen and examined. Patient sitting in chair at bedside. Patient awake and alert but not responding to questioning at this time. No acute events overnight as per nursing. Objective - Vital Signs/Intake and Output Vital Signs (last 24 hours): Temp Pulse Resp BP Pulse Ox 98.9 F 107 H 18 117/46 L 100 09/20/17 08:00 09/20/17 08:32 09/20/17 08:32 09/20/17 08:32 09/20/17 08:32 Intake and Output: 09/20/17 09/20/17 06:59 18:59 Intake Total 450 Balance 450 - Medications Medications: Current Medications Acetylcysteine (Acetylcysteine 20%) 4 ml INH RQ6 [facility] Last Admin: 09/20/17 08:09 Dose: 4 ml Albuterol/Ipratropium (Duoneb 3 Mg/0.5 Mg (3 Ml) Ud) 3 ml INH RQ6 [facility] Last Admin: 09/20/17 08:09 Dose: 3 ml Apixaban (Eliquis) 2.5 mg PO BID [facility] Last Admin: 09/20/17 09:56 Dose: 2.5 mg Aspirin (Aspirin Chewable) 81 mg PO DAILY [facility] Last Admin: 09/20/17 09:55 Dose: 81 mg Calcium Acetate (Phoslo) 667 mg GT TID [facility] Last Admin: 09/20/17 09:55 Dose: 667 mg Epoetin Chencho (Procrit) 10,000 unit IV MWF [facility] Last Admin: 09/19/17 13:15 Dose: 10,000 unit Famotidine (Pepcid) 20 mg PO DAILY [facility] Last Admin: 09/20/17 09:55 Dose: 20 mg Fluconazole (Diflucan) 200 mg PO DAILY [facility] Last Admin: 09/20/17 09:56 Dose: 200 mg Tigecycline 50 mg/ Sodium (Chloride) 100 mls @ 100 mls/hr IVPB Q12H [facility] Last Admin: 09/19/17 23:29 Dose: 100 mls/hr Insulin Aspart (Novolog) 0 unit SC Q6 [facility] PRN Reason: Protocol Last Admin: 09/20/17 06:19 Dose: 2 unit Insulin Detemir (Levemir) 43 unit SC Q12 [facility] Last Admin: 09/20/17 09:56 Dose: 43 unit Lactobacillus Acidophilus (Bacid Acidophilus) 1 cap PO BID [facility] Last Admin: 09/20/17 09:55 Dose: 1 cap Metoprolol Tartrate (Lopressor) 50 mg PO BID [facility] Last Admin: 09/20/17 09:56 Dose: 50 mg Rosuvastatin Calcium (Crestor) 10 mg PO HS [facility] Last Admin: 08/26/17 22:41 Dose: 10 mg - Labs Labs: 09/20/17 06:04 09/20/17 06:04 PT 13.9 SECONDS (9.7-12.2) H 08/24/17 06:08 INR 1.2 08/24/17 06:08 APTT 55 SECONDS (21-34) H D 08/17/17 06:12 - Constitutional Appears: No Acute Distress - Head Exam Head Exam: ATRAUMATIC - Eye Exam Eye Exam: EOMI - ENT Exam ENT Exam: Mucous Membranes Moist - Neck Exam Additional comments: trach collar - Respiratory Exam Respiratory Exam: Decreased Breath Sounds (poor inspiratory effort), NORMAL BREATHING PATTERN - Cardiovascular Exam Cardiovascular Exam: Tachycardia, +S1, +S2 - GI/Abdominal Exam GI & Abdominal Exam: Soft. absent: Tenderness Additional comments: PEG tube - Extremities Exam Extremities Exam: Normal Inspection - Neurological Exam Neurological Exam: Alert, Awake - Skin Skin Exam: Warm Assessment and Plan - Assessment and Plan (Free Text) Assessment: Patient is a 77 year old male with PMHx significant for CAD with prior stent placement, HTN, HLD, DM 2, CKD, Anemia, permanent pacemaker, prior DVT and chronic lower extremity edema presents with complaints of chest pain and shortness of breath with ambulation (08/06/17). Patient was admitted to ICU on from hospital floors due to code blue as patient was enroute to CT scan. Patient is currently with a tracheostomy due to respiratory distress secondary to cardiac arrest. Patient currently telemetry status. Atrial Fibrillation Intermittent Rate controlled. On Metoprolol 50 mg PO BID, Eliquis 2.5 mg PO BID CAD, chest pain -No current plans for cardiac cath (acute respiratory failure and elevated Cr) , history of abnormal stress test -Elevated Troponin likely due to chest compressions during cardiac arrest 08/10 -No acute ST changes on EKG -Continue ASA, Crestor, Metoprolol. -Echocardiogram from 08/08/17 showed left ventricle systolic function is severely impaired. EF: 25-30%; global hypokinesis of LV mild AR. MR is moderate. Moderate-severe pulmonary hypertension Chronic Systolic CHF s/p AICD -CXR 09/20: left-sided pacemaker, moderate venous congestion, left basilar opacity with small left pleural effusion, cardiomegaly. no significant interval change -BNP 65020 on 08/06/17 -Continue ASA, Crestor, Metoprolol -Echocardiogram from 08/08/17 showed left ventricle systolic function is severely impaired. EF: 25-30%; global hypokinesis of LV mild AR. MR is moderate. Moderate-severe pulmonary hypertesnion Dobutamine discontinued in light of atrial flutter-type episodes Leukocytosis continue antibiotics as per primary team continue sacral wound dressing changes Renal failure continue HD as per nephrology team Patient pending NH placement Plan as per Dr. Cortés <Sina Cortés - Last Filed: 09/20/17 23:21> Objective - Vital Signs/Intake and Output Vital Signs (last 24 hours): Temp Pulse Resp BP Pulse Ox 98.1 F 93 H 12 104/32 L 100 09/20/17 20:00 09/20/17 20:00 09/20/17 20:00 09/20/17 18:31 09/20/17 20:00 Intake and Output: 09/20/17 09/21/17 18:59 06:59 Intake Total 550 Output Total 500 Balance 50 - Medications Medications: Current Medications Acetylcysteine (Acetylcysteine 20%) 4 ml INH RQ6 [facility] Last Admin: 09/20/17 19:39 Dose: 4 ml Albuterol/Ipratropium (Duoneb 3 Mg/0.5 Mg (3 Ml) Ud) 3 ml INH RQ6 [facility] Last Admin: 09/20/17 19:39 Dose: 3 ml Apixaban (Eliquis) 2.5 mg PO BID [facility] Last Admin: 09/20/17 17:56 Dose: 2.5 mg Aspirin (Aspirin Chewable) 81 mg PO DAILY [facility] Last Admin: 09/20/17 09:55 Dose: 81 mg Calcium Acetate (Phoslo) 667 mg GT TID [facility] Last Admin: 09/20/17 17:56 Dose: 667 mg Epoetin Chencho (Procrit) 10,000 unit IV MWF [facility] Last Admin: 09/19/17 13:15 Dose: 10,000 unit Famotidine (Pepcid) 20 mg PO DAILY [facility] Last Admin: 09/20/17 09:55 Dose: 20 mg Fluconazole (Diflucan) 200 mg PO DAILY [facility] Last Admin: 09/20/17 09:56 Dose: 200 mg Tigecycline 50 mg/ Sodium (Chloride) 100 mls @ 100 mls/hr IVPB Q12H [facility] Last Admin: 09/20/17 11:50 Dose: 100 mls/hr Insulin Aspart (Novolog) 0 unit SC Q6 [facility] PRN Reason: Protocol Last Admin: 09/20/17 17:53 Dose: Not Given Insulin Detemir (Levemir) 43 unit SC Q12 [facility] Last Admin: 09/20/17 21:32 Dose: 43 unit Lactobacillus Acidophilus (Bacid Acidophilus) 1 cap PO BID [facility] Last Admin: 09/20/17 17:56 Dose: 1 cap Metoprolol Tartrate (Lopressor) 50 mg PO BID [facility] Last Admin: 09/20/17 17:56 Dose: 50 mg Rosuvastatin Calcium (Crestor) 10 mg PO HS [facility] Last Admin: 08/26/17 22:41 Dose: 10 mg - Labs Labs: 09/20/17 06:04 09/20/17 06:04 PT 13.9 SECONDS (9.7-12.2) H 08/24/17 06:08 INR 1.2 08/24/17 06:08 APTT 55 SECONDS (21-34) H D 08/17/17 06:12 Assessment and Plan - Assessment and Plan (Free Text) Assessment: Patient seen and evaluated with the center medical and lab director Plan of care as documented
--- NOTE | 2017-09-20 13:26 | CP.PCM.PN ---
Subjective - Date & Time of Evaluation Date of Evaluation: 09/20/17 Time of Evaluation: 13:25 - Subjective Subjective: up in chair confused unable to answer questions trach-vent no events Objective - Vital Signs/Intake and Output Vital Signs (last 24 hours): Temp Pulse Resp BP Pulse Ox 98.9 F 86 9 L 118/41 L 100 09/20/17 08:00 09/20/17 10:31 09/20/17 10:31 09/20/17 10:31 09/20/17 10:31 Intake and Output: 09/20/17 09/20/17 06:59 18:59 Intake Total 450 Output Total 0 Balance 450 0 - Medications Medications: Current Medications Acetylcysteine (Acetylcysteine 20%) 4 ml INH RQ6 [facility] Last Admin: 09/20/17 08:09 Dose: 4 ml Albuterol/Ipratropium (Duoneb 3 Mg/0.5 Mg (3 Ml) Ud) 3 ml INH RQ6 [facility] Last Admin: 09/20/17 08:09 Dose: 3 ml Apixaban (Eliquis) 2.5 mg PO BID [facility] Last Admin: 09/20/17 09:56 Dose: 2.5 mg Aspirin (Aspirin Chewable) 81 mg PO DAILY [facility] Last Admin: 09/20/17 09:55 Dose: 81 mg Calcium Acetate (Phoslo) 667 mg GT TID [facility] Last Admin: 09/20/17 09:55 Dose: 667 mg Epoetin Chencho (Procrit) 10,000 unit IV MWF [facility] Last Admin: 09/19/17 13:15 Dose: 10,000 unit Famotidine (Pepcid) 20 mg PO DAILY [facility] Last Admin: 09/20/17 09:55 Dose: 20 mg Fluconazole (Diflucan) 200 mg PO DAILY [facility] Last Admin: 09/20/17 09:56 Dose: 200 mg Tigecycline 50 mg/ Sodium (Chloride) 100 mls @ 100 mls/hr IVPB Q12H [facility] Last Admin: 09/20/17 11:50 Dose: 100 mls/hr Insulin Aspart (Novolog) 0 unit SC Q6 [facility] PRN Reason: Protocol Last Admin: 09/20/17 11:55 Dose: Not Given Insulin Detemir (Levemir) 43 unit SC Q12 [facility] Last Admin: 10/24/17 09:56 Dose: 43 unit Lactobacillus Acidophilus (Bacid Acidophilus) 1 cap PO BID [facility] Last Admin: 09/20/17 09:55 Dose: 1 cap Metoprolol Tartrate (Lopressor) 50 mg PO BID [facility] Last Admin: 09/20/17 09:56 Dose: 50 mg Rosuvastatin Calcium (Crestor) 10 mg PO HS [facility] Last Admin: 08/26/17 22:41 Dose: 10 mg - Labs Labs: 09/20/17 06:04 09/20/17 06:04 PT 13.9 SECONDS (9.7-12.2) H 08/24/17 06:08 INR 1.2 08/24/17 06:08 APTT 55 SECONDS (21-34) H D 08/17/17 06:12 - Constitutional Appears: Non-toxic, No Acute Distress, Chronically Ill - Head Exam Head Exam: NORMAL INSPECTION - Eye Exam Eye Exam: Normal appearance - ENT Exam ENT Exam: Mucous Membranes Dry (trach collar) - Respiratory Exam Respiratory Exam: Decreased Breath Sounds (mechanical vent sounds) - Cardiovascular Exam Cardiovascular Exam: REGULAR RHYTHM, RRR - GI/Abdominal Exam GI & Abdominal Exam: Distended, Soft - Extremities Exam Extremities Exam: Normal Inspection Assessment and Plan (1) Acute on chronic renal failure Status: Resolved (2) CHF (congestive heart failure) Status: Acute (3) History of DVT (deep vein thrombosis) Status: Acute (4) CAD (coronary artery disease) Status: Chronic (5) CKD (chronic kidney disease) Status: Chronic - Assessment and Plan (Free Text) Assessment: maintain hd [facility]wf supportive care
--- NOTE | 2017-09-20 15:02 | CP.PCM.PN ---
<Sina White - Last Filed: 09/20/17 15:03> Subjective - Date & Time of Evaluation Date of Evaluation: 09/20/17 Time of Evaluation: 14:59 - Subjective Subjective: Medicine Progress Note for Dr. Lazar HPI: Patient seen and examined at bedside. Doing well with no complainants. Looking much more aware and awake. Sitting comfortably in chair. Objective - Vital Signs/Intake and Output Vital Signs (last 24 hours): Temp Pulse Resp BP Pulse Ox 98.9 F 86 9 L 118/41 L 100 09/20/17 08:00 09/20/17 10:31 09/20/17 10:31 09/20/17 10:31 09/20/17 10:31 Intake and Output: 09/20/17 09/20/17 06:59 18:59 Intake Total 450 Output Total 0 Balance 450 0 - Medications Medications: Current Medications Acetylcysteine (Acetylcysteine 20%) 4 ml INH RQ6 [facility] Last Admin: 09/20/17 14:30 Dose: 4 ml Albuterol/Ipratropium (Duoneb 3 Mg/0.5 Mg (3 Ml) Ud) 3 ml INH RQ6 [facility] Last Admin: 09/20/17 14:30 Dose: 3 ml Apixaban (Eliquis) 2.5 mg PO BID [facility] Last Admin: 09/20/17 09:56 Dose: 2.5 mg Aspirin (Aspirin Chewable) 81 mg PO DAILY [facility] Last Admin: 09/20/17 09:55 Dose: 81 mg Calcium Acetate (Phoslo) 667 mg GT TID [facility] Last Admin: 09/20/17 09:55 Dose: 667 mg Epoetin Chencho (Procrit) 10,000 unit IV MWF [facility] Last Admin: 09/19/17 13:15 Dose: 10,000 unit Famotidine (Pepcid) 20 mg PO DAILY [facility] Last Admin: 09/20/17 09:55 Dose: 20 mg Fluconazole (Diflucan) 200 mg PO DAILY [facility] Last Admin: 09/20/17 09:56 Dose: 200 mg Tigecycline 50 mg/ Sodium (Chloride) 100 mls @ 100 mls/hr IVPB Q12H [facility] Last Admin: 09/20/17 11:50 Dose: 100 mls/hr Insulin Aspart (Novolog) 0 unit SC Q6 [facility] PRN Reason: Protocol Last Admin: 09/20/17 11:55 Dose: Not Given Insulin Detemir (Levemir) 43 unit SC Q12 [facility] Last Admin: 09/20/17 09:56 Dose: 43 unit Lactobacillus Acidophilus (Bacid Acidophilus) 1 cap PO BID [facility] Last Admin: 09/20/17 09:55 Dose: 1 cap Metoprolol Tartrate (Lopressor) 50 mg PO BID [facility] Last Admin: 09/20/17 09:56 Dose: 50 mg Rosuvastatin Calcium (Crestor) 10 mg PO HS [facility] Last Admin: 08/26/17 22:41 Dose: 10 mg - Labs Labs: 09/20/17 06:04 09/20/17 06:04 PT 13.9 SECONDS (9.7-12.2) H 08/24/17 06:08 INR 1.2 08/24/17 06:08 APTT 55 SECONDS (21-34) H D 08/17/17 06:12 - Constitutional Appears: Chronically Ill - Head Exam Head Exam: ATRAUMATIC, NORMAL INSPECTION, NORMOCEPHALIC - ENT Exam ENT Exam: Mucous Membranes Moist - Neck Exam Additional comments: trach - Respiratory Exam Respiratory Exam: Clear to Ausculation Bilateral, NORMAL BREATHING PATTERN - GI/Abdominal Exam GI & Abdominal Exam: Soft, Normal Bowel Sounds. absent: Distended, Tenderness - Extremities Exam Extremities Exam: absent: Joint Swelling, Tenderness - Back Exam Additional comments: 10x10 sacral decub stage 3 clean moist base, no necrotic tissue. Dressing changed with optifoam/medihoney. - Neurological Exam Neurological Exam: Alert, Awake - Skin Skin Exam: Dry, Normal Color, Warm. absent: Intact Assessment and Plan - Assessment and Plan (Free Text) Assessment: (1) Acute Respiratory Failure ARDS Cardiac Arrest Pulmonary Edema Nonstemi Assessment and Plan: * Code Blue on 08/10: asystole, cardiopulmonary resuscitative measures initiated , requiring 3 epis, bicarbonate, ROSC achieved and intubated and brought to the ICU for further management; Patient in the ICU from 08/10 until present. * Pulmonary: Dr Mena (Dr. Jeffers covering until 09/04/17)-->help appreciated * Cardiology: Dr. Cortés on board-->help appreciated * GI (Dr. Wills) on board-->help appreciated * S/P Tracheostomy 08/22 * S/P Peg tube placement 08/25 * s/p insertion of right posterior chest tube 08/19-->removed 08/24/17 * There was consideration for possible thoracentesis of left side pleural effusion, evaluated by IR, there is no fluid to drain per Dr. Gross * Chest xray (08/26): right arm PICC is seen with the tip of distal subclavian vein. PICC may be used * Per cardiology, * Restart Aspirin 81mg PO daily * Patient does not need Plavix at this time * Recommend for Eliquis 2.5mg PO BID for atrial flutter * 08/27: patient is pending LTAC, he went eventually need cardiac catheterization when he has stabilized. Held statin secondary to elevated LFTs. Discussed with Dr. Cortés, lowered Amiodarone 200mg PO daily * 08/28: patient is pending LTAC, he went eventually need cardiac catheterization when he has stabilized. Liver function tests improving * 08/29: Clinical Documentation Developer Nehal has sent request to insurance for authorization for LTAC-->pending * 09/06: pending social work/case management approval for LTAC * 09/07: pending social work/case management approval for LTAC * 09/08: Unable to get approval for LTAC; pending other options * 09/09: Transferred from step-down ICU to the floors * 09/13: Trasnferred back to ICU S/P Rapid Response for low blood pressure * 09/14: Currently on Acetylcysteine 20 % Neb Q6H and Duoneb Q6H * 09/15: Passy Rombauer Trach placed by Electroplater Helper (2) Abnormal Stress Test History of AICD History of Coronary Artery Disease Assessment and Plan: * Cardiology (Dr. Cortés) on board-->help appreciated * TSH: 1.16; T4: 1.53 * Echocardiogram (08/08/17): left ventricle systolic function is severely impaired. EF: 25-30%; global hypokinesis of left ventricle mild aortic regurgitation. Mitral regurgitation is moderate. Moderate-severe pulmonary hypertension * Plan was for cardiac catheterization; delayed due to acute renal failure; Attempted gentle hydration and mucomyst on 08/09 to optimize prior to cath * On 08/10, patient was in asystole, ACLS protocol, ROSC achieved, intubated and transfered to the ICU. Patient in acute pulmonary edema. * Patient hospitalized in the ICU since 08/10/17 to present. * Medications: * Aspirin 81mg PO daily * Plavix d/c by cardiology * Lopressor 50mg PO bid * d/c Crestor 10mg POqHS secondary to rise in LFTS 08/27--->monitor LFTs daily * ARB d/c secondary to acute renal failure * 08/27: patient is pending LTAC, he went eventually need cardiac catheterization when he has stabilized. Held statin secondary to elevated LFTs. Discussed with Dr. Cortés, lowered Amiodarone 200mg PO daily * 08/28: He will eventually need cardiac catheterization when he has stabilized. Liver function tests improving. Statin is on hold (3) Atrial flutter Assessment and Plan: * Cardiology (Dr. Cortés) on board-->help appreciated * Refractory to Lopressor/Cardizem IVP * Eliquis 2.5mg PO bid * Amiodarone bolus-->Amiodarine drip on 08/24-->converted to Amiodarone 200mg PO TID on 08/26 and this was decreased to 200 mg 1x/day due to increased LFTs * 08/27: Discussed with Dr. Cortés, will lower Amiodarone 200mg PO daily and monitor LFTs. Statin held and tylenol d/c * 08/29: patient is pending LTAC, he will eventually need cardiac catheterization when he has stabilized. Liver function tests improving. Statin is on hold due to the elevated LFTs * 08/30: Cardiology discontinued the Amiodarone * 09/07: Held eliquis; will need to resume * 09/09: Eliquis resumed, off Amiodarone Status: Acute (4) Acute on Chronic Systolic CHF exacerbation Assessment and Plan: * Cardiology (Dr. Cortés) on board-->help appreciated * Transferred to the ICU on 08/10 following cardiac arrest and intubation. * Echocardiogram (08/08/17): left ventricular systolic function is severely impaired. EF: 25-30%; global hypokinesis of left ventricle mild aortic regurgitation. Mitral regurgitation is moderate. Moderate-severe pulmonary hypertension * Medications: * Aspirin 81mg PO daily * Plavix d/c by cardiology * Lopressor 50mg PO bid * d/c Crestor 10mg POqHS on 08/27 secondary to rise in LFTs * ARB d/c secondary to acute renal failure Status: Acute (5) Leukocytosis Assessment and Plan: * Patient's white count downtrending * Pleural Fluid 08/19/17 did not show any growth * Blood cultures (08/26): no growth X5 days * UA and urine culture (08/27): Urine Culture showed Yeast Species. * Patient has elevated LFTs-->did not start anti-fungal in light of LFTs New: * 09/05/17 Blood: gram positive cocci-->pending speciation * 09/05/17 Blood: no growth after 4 days * 09/07/17 Legionella Culture: negative * 09/07/17 Mycobacteria: negative * 09/07/17 Sputum: Enterocloace Bacter; yeast * 09/07/17 Blood: negative X 48 hours * 09/07/17 Blood: negative X 48 hours * 09/06: stool culture pending; has not had diarrhea or bowel movement * 09/07: Dr. Zimmer (covering Dr. Lawrence) to see the patient given elevated procalcitonin * Blood Culture 09/13/17 is negative to date and Urine Culture 09/13/17 showed Yeast Species * 09/14: Could this be secondary to the Septic Shock? Secondary to Osteomyelitis of the Sacrum? 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) and Meropenem 500 mg IV Q8H (09/13/17 through 09/16/17), Diflucan 200 mg PO 1x/day (09/13/17), Bactrim 10 mL PO Q12H (09/12/17 through 09/16/17), Tigecycline 50 mg IV Q12H (09/16/17 started because of VRE on Sacrum Wound Culture 09/14/17) * ESR 09/14/17 elevated at 89 * Bone Scan performed 09/17/17 to check for Osteomyelitis at the Sacrum: results are pending * Meropenem 500 mg IV Q12H (09/13/17 through 09/16/17: which will cover the Enterbacter in the Sputum 09/07/17 and the possibility of Sacral Osteomyelitis) * Antibiotics as of 09/17/17:Tigecycline (09/16/17: which will cover the VRE in Sacral Wound Culture 09/14/17 and the possibility of Sacral Osteomyelitis) and Diflucan 200 mg PO 1x/day (09/13/17: which will cover with Yeast in the Sputum, Urine, and Sacral Wound Culture) Status: Acute (6) Pneumonia Assessment and Plan: * Pulmonary (Dr. Mena) on board-->help appreciated; Dr. Jeffers covering while Dr. Mena away * Infectious Disease (Dr. Lawrence)-->help appreciated * Chest xray (08/26): right arm PICC is seen with the tip of distal subclavian vein. PICC may be used * Rapid A strep, Influenza A and B studies, Urine Legionella, Mycoplasma studies = Negative * Florastor 250mg PO bid * 08/07/17: +Strep Pneumoniae in the urine * Meropenem 500mg IV Q 8 hours (08/14/17 through 08/18/17) and Zosyn 2.25 mg IV Q6H (08/13/17 through 08/18/17) * Cefepime 1 gm IV Q24H: started on 08/19/17 and was discontinued by ID Dr. Lawrence on 08/30/17: monitor vitals and labs * s/p right posterior chest tube 08/19-08/24 * Sputum Culture 08/19/17 shows No growth * Pleural fluid 08/19/17: No growth * 09/07/17 Sputum: Enterocloace Bacter and Yeast Species: See Antibiotic treatment in previous Assessment and Plan * Sputum 09/10/17 shows NO AFB Status: Acute (7) HTN (hypertension) Assessment and Plan: * Lopressor 50mg PO bid * Lisinopril 5mg PO daily Status: Chronic (8) CKD (chronic kidney disease) on Dialysis Assessment and Plan: * Dr. Miranda (nephrology) consulted on the case * Hx of CKD-->Started on dialysis 08/15/17 * Kurtis catheter placed and removed 08/22 * s/p Right Chest Permcath 08/22 * Patient is on dialysis M-W-F; oliguric * Phoslo 1334mg GT TID * Epoetin 10,000 unit IV MWF Status: Acute (9) Diabetes mellitus Assessment and Plan: * Accuchecks Q6H * HgbA1c 8.4 * Started peg feedings on 08/26/17 * Nepro-->50 ml/hour but this was held 09/13/17 due suspicion of Bowel Obstruction as NO bowel Movement since 09/07/17. This was restarted on after NO obstruction was observed on Obstruction Series 09/13/17 and after multiple bowel movement s/p Fleet Enema 09/13/17 (10) HLD (hyperlipidemia) Assessment and Plan: * 08/27: held Crestor 10 mg PO HS secondary to rise in LFTs * 08/29: Liver function tests improving; waiting to restart statin Status: Chronic (11) Anemia Assessment and Plan: * Heme-oncology (Dr. Giles bender) on board-->help appreciated * Likely iron deficiency anemia based on prior admissions * Ferritin 27.4, Iron 22, TIBC 322, % Saturation 7 * Ferric Sodium Gluconate 125mg IVPB daily (active 08/08-08/16) * Procrit 10,000 units M-W- * Monitor Hgb/Hct: stable Status: Chronic (12) History of DVT (deep vein thrombosis) Assessment and Plan: * Patient was previously on Eliquis for a prior history of DVT. * Repeat dopplers 08/09/17 are negative for DVT * Off Heparin Drip 08/17/17 * Started Eliquis 2.5mg PO BID for atrial flutter and history of DVT Status: Chronic (13) UTI Assessment and Plan: * Infectious disease (Dr. Lawrence) on board-->help appreciated * Exchange jaquez out and repeat urine cultures * Urine Culture 08/12/17 showed Gram Negative Rods: NO identification and NO sensitivities were performed * Meropenem 500mg IV Q 12hours (active since 08/14/17 through 08/18/17) to cover for UTI per ID * Repeat Urine Culture 08/18/17 shows NO growth * 08/25: reculture in light of leukocytosis * 08/27: pending urine studies * 08/30: Urine Culture 08/27/17 showed Yeast Species but no antifungal at that time secondary to recent history of Elevated LFTs * Urine Culture 09/13/17 showed Yeast Species: he is on Diflucan Status: Chronic (14) Confusion; Alzheimer's Dementia Assessment and Plan: * Per daughter, patient has been getting bouts of confusion over the past year but appears at baseline. Patient has not seen formal neurology as outpatient per daughter. Per , prior to event, noted Alzheimers' disease dx one year ago * CT head w/o contrast (08/10/17):acute os subacute lacune infarct is not excluded in the left basal ganglia inferiorly with definitive chronic lacune identified in the right basal ganglia superiorly. No acute or subacute lobar brain infarction is appreciable by standard CT criteria. Mild age-related neuro degenerative changes are identifed. No acute intracranial hemorrhage or mass is identified throughout * 08/26: Off Sedation-->patient moves all extremities randomly but does not follow directions * 08/27: off sedation-->patient is very calm, smiles at his * 08/28: off sedation-->patient is very calm Status: Chronic (15) Unstageable Sacral Ulcer, Left Ear Auricle Ulcer, Right Heal Ulcer Assessment and Plan: * Wound care on board * WOUND CARE NOTE (08/26)-->Pt with a sacral unstageable being treated with medihoney. No changes to dimensions at this time. Also, pt favoring Left side of head and has developed a 1x1 serous filled blister on his left ear. Primary nurse placed duoderm on the ear. Wound care nurse left duoderm in place , and recommends leaving it on until it falls off on its own. Pt has been NPO for several days, new peg inserted yesterday. Will be starting glucerna tube feedings later today. Albumin 3.3 * Turn q 2 hours * medihoney on unstageable ulcer * duoderm on left ear aurical ulcer: this is healed as of 09/15/17 * Prevalon Boots for Right Heal Blister 09/13/17 * 09/02/17: examined with Wound Care Nurse Emeka Samuel and periphery of the Sacral Wound is pink with some bleeding however center is still black and therefore still unstageable. Continue spray with Cavelon followed by thick coating with MediHoney followed by covering with OptiFoam once a day. * 09/03/17: Change of sacral ulcer dressing was performed by me with assitance from Nurse Lyman * 09/04/17: 09/03/17: Change of sacral ulcer dressing was performed by me with assistance from ALEXANDRA Unger * Per wound care note (09/07): sacral ulcer is stable per wound care nurse * 09/14/17: Sacral Ulcer is unstageable and area of blackness fills entire circumference. General Surgery consult placed to see if debridement is necessary. Continue Cavelon [place] followed by paulina thick coating of MediHoney followed by covering with OptiFoam. * 09/15/17: Surgery Team debrided Sacral Ulcer and Bone Scan will need to be followed up which was performed 09/17/17 * 09/18/17: With the help of Nurse Guzman, applied Cavelon [place] followed by thick coating of MediHoney followed by covering with OptiFoam * 09/19/17: Dressing for Sacral Ulcer already changed before my exam. Explained to Nurse Guzman that best application of MediHoney would be to cover the padding of the OptiFoam with it and then apply the OptiFoam to the ulcer. Status: Acute (16) Elevated LFTs Assessment and Plan: * 08/27: Yina * Discussed with cardiology-->changed amiodarone 200mg PO tid to amiodaron 200mg PO daily * D/C tylenol * Held Statin * patient is also on Rocephin to cover for pneumonia * Will not start antifungal * 08/29: starting to down trending since change in amiodarone dose; awaiting to restart statin * 08/30: continues to trend down. Amiodarone was discontinued * 09/01: AST, ALT, Alk Phos still elevated but stable * 09/02: AST, ALT, Alk Phos still elevated but stable * 09/03: LFTs stable * 09/04: LFTs stable Status: Acute (17). Hx Constipation * Monitor bowel movement * Multiple bowel movements on 09/13/17 and 09/14/17 that are well formed s/p Fleet Enema on 09/13/17 * 09/15/17: NO bowel movement * 09/16/17: Soft pasty bowel movement * 09/17/17: Soft pasty bowel movement * 09/18/17: NO bowel movement * 09/19/17: ordered one dose of Lactulose 20 gm via PEG as still no bowel movement (18). Hyponatremia * 09/19/17: at 127 monitor for now (19). Prophylactic measure Assessment and Plan: * Pepcid 20mg PO daily * Start Eliquis 2.5mg PO BID * s/p peg placement 08/25 * s/p trachesostomy 08/22 * s/p Permcath placement 08/22 removal Kurtis catheter * s/p right posterior chest tube 08/19-->removed 08/24 * s/p Right Arm PICC 08/26 * (Jovita Serrano): -->number provided to the nurse- ->consented for peg placement; discussed about LTAC 08/26 * Spoke with Dr. Pickard, MARIAJOSE regarding patient's hospitalization up until this point 08/2609/01/17: Dr. Cullen Barth spoke with the patient's [place] with the assistance of Nurse Campos on 3 tower (as multiple attempts of using Cliqd indicated that all of the [place] translators were busy) and explained all of the patient's diagnosises. 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 Her ultimate wish is to take patient to [facility] where their children live. I explained to patient that I would not know how that would be coordinated but that the Social Workers/Cotton Farmworker at LTAC may be of assistance in this regard. I also informed her that I am not aware of any insurance company that would finance this request. She understands that the patient is awaiting insurance approval for LTAC. 09/01/17 and 09/02/17: Dr. Cullen Barth spoke with Business Law Professor Demetria and we are still awaiting insurance authorization for LTAC placement. 09/05/17: Spoke with nehal medical social consultant, wean trials sent to LTAC pending approval no word yet regarding approval. Ordered for repeat cultures given uptrend in white count. 09/06/17: pending repeat cultures in light of elevated procalcitonin; ID recommended to reculture. Note: patients PICC lined had clogged ports. Red port remains clogged in spite of cath rafaela. Blue port improved after cath rafaela. Possible may need to remove line to r/o infected line. Strong suspicion due to patient's pneumonia given he has thick secretions. 09/07/17: Infectious disease. pending repeat cultures in light of elevated procalcitonin; Note: patients PICC lined had clogged ports. Red port remains clogged in spite of cath rafaela. Blue port improved after cath rafaela. Hip xray negative for acute fracture. There are no noted falls. 09/08/17: Patient denied for LTAC; awaiting for other options from case management/social work. Resident Eng spoke with Dr. Cortés, patient be transferred under regular bed, when bed is available. Infectious disease on board; Patient started on IV Vancomycin in light of + blood culture. Pending chest xray. 09/09/17: Patient denied for LTAC; awaiting for other options from case management/social work with kamlesh verdin support. Patient started on IV Vancomycin MWF in light of + blood culture. Pending chest xray. F/U sputum with ID. f/u latest blood cultures. 09/13/17: Rapid response for low blood pressure and elevated WBC likely Septic Shock. Started on Levophed, added Meropenem to Vancomycin and 1 dose of Gentamycin given after speaking with ID. Ordered Obstruction Series as no bowel movement since 09/07/17. F/U Shock Panel. Discussed with ICU Resident to arrange for Change of Right Arm Midline line and Trach Collar. 09/14/17: Will await results of Blood Culture 09/13/17 to determine if the Right Arm Midline, Right Chest Perm Cath, and Trach Collar needs to be changed. Spoke with Business Law Professor Demetria in ICU and patient information has been sent to [facility] (they accept patients on Trach) and she is awaiting to hear back from them before submitting approval request to insurance [employer]. 09/15/17: Passy Rombauer Trach placed by Electroplater Helper. Surgical Team for debridement of Sacral Ulcer. Spoke with patient's ([place] Denisa [id number]) and explained/updated her on patient condition and obtained consent for sacral ulcer debridement. 09/16/17: Still awaiting performance of Sacral Bone Scan 09/17/17: Bone Scan performed and awaiting results 09/18/17: Awaiting Bone Scan Report 09/19/17: Still awaiting Bone Scan Report. Spoke again with Business Law Professor Demetria and NO word yet from [facility] (they do treat patients with Trachs). 09/20/17: Repeat Wound culture and urine culture sent. Dressing changed with medihoney and optifoam. No other changes at this time. Still waiting for approval for [facility] <Mariangel Lazar V - Last Filed: 09/20/17 16:14> Objective - Vital Signs/Intake and Output Vital Signs (last 24 hours): Temp Pulse Resp BP Pulse Ox 98.9 F 86 9 L 118/41 L 100 09/20/17 08:00 09/20/17 10:31 09/20/17 10:31 09/20/17 10:31 09/20/17 10:31 Intake and Output: 09/20/17 09/20/17 06:59 18:59 Intake Total 450 Output Total 0 Balance 450 0 - Medications Medications: Current Medications Acetylcysteine (Acetylcysteine 20%) 4 ml INH RQ6 [facility] Last Admin: 09/20/17 14:30 Dose: 4 ml Albuterol/Ipratropium (Duoneb 3 Mg/0.5 Mg (3 Ml) Ud) 3 ml INH RQ6 [facility] Last Admin: 09/20/17 14:30 Dose: 3 ml Apixaban (Eliquis) 2.5 mg PO BID [facility] Last Admin: 09/20/17 09:56 Dose: 2.5 mg Aspirin (Aspirin Chewable) 81 mg PO DAILY [facility] Last Admin: 09/20/17 09:55 Dose: 81 mg Calcium Acetate (Phoslo) 667 mg GT TID [facility] Last Admin: 09/20/17 09:55 Dose: 667 mg Epoetin Chencho (Procrit) 10,000 unit IV MWF [facility] Last Admin: 09/19/17 13:15 Dose: 10,000 unit Famotidine (Pepcid) 20 mg PO DAILY [facility] Last Admin: 09/20/17 09:55 Dose: 20 mg Fluconazole (Diflucan) 200 mg PO DAILY [facility] Last Admin: 09/20/17 09:56 Dose: 200 mg Tigecycline 50 mg/ Sodium (Chloride) 100 mls @ 100 mls/hr IVPB Q12H [facility] Last Admin: 09/20/17 11:50 Dose: 100 mls/hr Insulin Aspart (Novolog) 0 unit SC Q6 [facility] PRN Reason: Protocol Last Admin: 09/20/17 11:55 Dose: Not Given Insulin Detemir (Levemir) 43 unit SC Q12 [facility] Last Admin: 09/20/17 09:56 Dose: 43 unit Lactobacillus Acidophilus (Bacid Acidophilus) 1 cap PO BID [facility] Last Admin: 09/20/17 09:55 Dose: 1 cap Metoprolol Tartrate (Lopressor) 50 mg PO BID [facility] Last Admin: 09/20/17 09:56 Dose: 50 mg Rosuvastatin Calcium (Crestor) 10 mg PO HS [facility] Last Admin: 08/26/17 22:41 Dose: 10 mg - Labs Labs: 09/20/17 06:04 09/20/17 06:04 PT 13.9 SECONDS (9.7-12.2) H 08/24/17 06:08 INR 1.2 08/24/17 06:08 APTT 55 SECONDS (21-34) H D 08/17/17 06:12 Attending/Attestation - Attestation I have personally seen and examined this patient.: Yes I have fully participated in the care of the patient.: Yes I have reviewed all pertinent clinical information, including history, physical exam and plan: Yes Notes (Text): (1) Acute Respiratory Failure ARDS Cardiac Arrest Pulmonary Edema Nonstemi Assessment and Plan: * Code Blue on 08/10: asystole, cardiopulmonary resuscitative measures initiated , requiring 3 epis, bicarbonate, ROSC achieved and intubated and brought to the ICU for further management; Patient in the ICU from 08/10 until present. * Pulmonary: Dr Mena (Dr. Jeffers covering until 09/04/17)-->help appreciated * Cardiology: Dr. Cortés on board-->help appreciated * GI (Dr. Wills) on board-->help appreciated * S/P Tracheostomy 08/22 * S/P Peg tube placement 08/25 * s/p insertion of right posterior chest tube 08/19-->removed 08/24/17 * Passy Flex Trach placed 09/15 * There was consideration for possible thoracentesis of left side pleural effusion, evaluated by IR, there is no fluid to drain per Dr. Gross * Chest xray (08/26): right arm PICC is seen with the tip of distal subclavian vein. PICC may be used * Chest Xray (09/20/17): lines and tubes stable position, left-sided pacemaker, moderate venous congestion, left basilar opacity with associated small left pleural effusion, Cardiomegaly. Prominent aorta, degenrative changes in spine and shoulders * Medications: * Acetylcysteine 20% 4ml INH RQ6H * Duoneb 3ml INH RQ6H * Aspirin 81mg PO daily * Eliquis 2.5mg PO bid * Lopressor 50mg PO bid (2) Abnormal Stress Test History of AICD History of Coronary Artery Disease Assessment and Plan: * Cardiology (Dr. Cortés) on board-->help appreciated * TSH: 1.16; T4: 1.53 * Echocardiogram (08/08/17): left ventricle systolic function is severely impaired. EF: 25-30%; global hypokinesis of left ventricle mild aortic regurgitation. Mitral regurgitation is moderate. Moderate-severe pulmonary hypertension * Plan was for cardiac catheterization; delayed due to acute renal failure; Attempted gentle hydration and mucomyst on 08/09 to optimize prior to cath * On 08/10, patient was in asystole, ACLS protocol, ROSC achieved, intubated and transfered to the ICU. Patient in acute pulmonary edema. * Patient hospitalized and require to and from ICU twice during this admission * Cardiac cath postponed at this time * Medications: * Acetylcysteine 20% 4ml INH RQ6H * Duoneb 3ml INH RQ6H * Aspirin 81mg PO daily * Eliquis 2.5mg PO bid * Lopressor 50mg PO bid (3) Atrial flutter Assessment and Plan: * Cardiology (Dr. Cortés) on board-->help appreciated * Refractory to Lopressor/Cardizem IVP * Eliquis 2.5mg PO bid * Off Amiodarone per cardiology * c/w Lopressor 50mg PO bid Status: Resolved (4) Acute on Chronic Systolic CHF exacerbation Assessment and Plan: * Cardiology (Dr. Cortés) on board-->help appreciated * Transferred to the ICU on 08/10 following cardiac arrest and intubation. * Echocardiogram (08/08/17): left ventricular systolic function is severely impaired. EF: 25-30%; global hypokinesis of left ventricle mild aortic regurgitation. Mitral regurgitation is moderate. Moderate-severe pulmonary hypertension * Medications: * Aspirin 81mg PO daily * Lopressor 50mg PO bid * ARB d/c secondary to acute renal failure * Restart statin given LFTs normalized * Weight: 184; as high as 291 (questionable) on admission Status: Stable (5) Leukocytosis Assessment and Plan: * Pleural Fluid 08/19/17 did not show any growth * Blood cultures (09/13): no growth X5 days X2 * Blood cultures (09/07) during dialysis: no growth X5 days X2 * UA and urine culture (08/27): Yeast Species. * UA and urine culture (09/13): Yeast Species. 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 * Sacral Ulcer (09/14/17): VRE and Reny Albicans * Blood Culture 09/13/17 is negative to date and Urine Culture 09/13/17 showed Yeast Species * Bone Scan performed 09/17/17 to check for Osteomyelitis at the Sacrum: negative for osteomyelitis * OFF Meropenem 500 mg IV Q12H (09/13/17 through 09/16/17: which will cover the Enterbacter in the Sputum 09/07/17 and the possibility of Sacral Osteomyelitis) * c/w Tigecycline (09/16/17: which will cover the VRE in Sacral Wound Culture and the possibility of Sacral Osteomyelitis) and Diflucan 200 mg PO 1x/ day (09/13/17: which will cover with Yeast in the Sputum, Urine, and Sacral Wound Culture) * Procalcitionin: 8.60 (09/06/17)-->pending repeat procalcitonin Status: Acute (6) Pneumonia Assessment and Plan: * Pulmonary (Dr. Mena) on board-->help appreciated * Infectious Disease (Dr. Lawrence)-->help appreciated * Chest xray (08/26): right arm PICC is seen with the tip of distal subclavian vein. PICC may be used * Rapid A strep, Influenza A and B studies, Urine Legionella, Mycoplasma studies = Negative * Florastor 250mg PO bid * 08/07/17: +Strep Pneumoniae in the urine * Meropenem 500mg IV Q 8 hours (08/14/17 through 08/18/17) and Zosyn 2.25 mg IV Q6H (08/13/17 through 08/18/17) * Cefepime 1 gm IV Q24H: started on 08/19/17 and was discontinued by ID Dr. Lawrence on 08/30/17: monitor vitals and labs * s/p right posterior chest tube 08/19-08/24 * Sputum Culture 08/19/17 shows No growth * Pleural fluid 08/19/17: No growth * 09/07/17 Sputum: Enterocloace Bacter and Yeast Species: See Antibiotic treatment in previous Assessment and Plan * Sputum 09/10/17 shows NO AFB Status: Acute (7) HTN (hypertension) Assessment and Plan: * Lopressor 50mg PO bid * Lisinopril 5mg PO daily Status: Chronic (8) CKD (chronic kidney disease) on Dialysis Assessment and Plan: * Dr. Miranda (nephrology) consulted on the case * Hx of CKD-->Started on dialysis 08/15/17 * Kurtis catheter placed and removed 08/22 * s/p Right Chest Permcath 08/22 * Patient is on dialysis --; oliguric * Phoslo 1334mg GT TID * Epoetin 10,000 unit IV MWF Status: Crhonic (9) Diabetes mellitus Assessment and Plan: * Accuchecks Q6H * HgbA1c 8.4 * Started peg feedings on 08/26/17 * Nepro-->50 ml/hour but this was held 09/13/17 due suspicion of Bowel Obstruction as NO bowel Movement since 09/07/17. This was restarted on after NO obstruction was observed on Obstruction Series 09/13/17 and after multiple bowel movement s/p Fleet Enema 09/13/17 (10) HLD (hyperlipidemia) Assessment and Plan: * LFTS have normalized; will restart statin 09/20/17 Status: Chronic (11) Anemia Assessment and Plan: * Heme-oncology (Dr. Giles bender) on board-->help appreciated * Likely iron deficiency anemia based on prior admissions * Ferritin 27.4, Iron 22, TIBC 322, % Saturation 7 * Ferric Sodium Gluconate 125mg IVPB daily (active 08/08-08/16) * Procrit 10,000 units M-- * Monitor Hgb/Hct: stable Status: Chronic (12) History of DVT (deep vein thrombosis) Assessment and Plan: * Patient was previously on Eliquis for a prior history of DVT. * Repeat dopplers 08/09/17 are negative for DVT * Off Heparin Drip 08/17/17 * Started Eliquis 2.5mg PO BID for atrial flutter and history of DVT Status: Chronic (13) UTI Assessment and Plan: * Infectious disease (Dr. Lawrence) on board-->help appreciated * Exchange jaquez out and repeat urine cultures * Urine Culture 08/12/17 showed Gram Negative Rods: NO identification and NO sensitivities were performed * Meropenem 500mg IV Q 12hours (active since 08/14/17 through 08/18/17) to cover for UTI per ID * Repeat Urine Culture 08/18/17 shows NO growth * 08/25: reculture in light of leukocytosis * 08/27: pending urine studies * 08/30: Urine Culture 08/27/17 showed Yeast Species but no antifungal at that time secondary to recent history of Elevated LFTs * Urine Culture 09/13/17 showed Yeast Species: he is on Diflucan Status: Chronic (14) Confusion; Alzheimer's Dementia Assessment and Plan: * Per daughter, patient has been getting bouts of confusion over the past year but appears at baseline. Patient has not seen formal neurology as outpatient per daughter. Per , prior to event, noted Alzheimers' disease dx one year ago * CT head w/o contrast (08/10/17):acute os subacute lacune infarct is not excluded in the left basal ganglia inferiorly with definitive chronic lacune identified in the right basal ganglia superiorly. No acute or subacute lobar brain infarction is appreciable by standard CT criteria. Mild age-related neuro degenerative changes are identifed. No acute intracranial hemorrhage or mass is identified throughout * 08/26: Off Sedation-->patient moves all extremities randomly but does not follow directions * 08/27: off sedation-->patient is very calm, smiles at his * 08/28: off sedation-->patient is very calm Status: Chronic (15) Unstageable Sacral Ulcer, Left Ear Auricle Ulcer, Right Heal Ulcer Assessment and Plan: * Wound care on board * WOUND CARE NOTE (08/26)-->Pt with a sacral unstageable being treated with medihoney. No changes to dimensions at this time. Also, pt favoring Left side of head and has developed a 1x1 serous filled blister on his left ear. Primary nurse placed duoderm on the ear. Wound care nurse left duoderm in place , and recommends leaving it on until it falls off on its own. Pt has been NPO for several days, new peg inserted yesterday. Will be starting glucerna tube feedings later today. Albumin 3.3 * Turn q 2 hours * medihoney on unstageable ulcer * duoderm on left ear aurical ulcer: this is healed as of 09/15/17 * Prevalon Boots for Right Heal Blister 09/13/17 * 09/02/17: examined with Wound Care Nurse Emeka Samuel and periphery of the Sacral Wound is pink with some bleeding however center is still black and therefore still unstageable. Continue spray with Cavelon followed by thick coating with MediHoney followed by covering with OptiFoam once a day. * 09/03/17: Change of sacral ulcer dressing was performed by me with assitance from Nurse Lyman * 09/04/17: 09/03/17: Change of sacral ulcer dressing was performed by me with assistance from ALEXANDRA Unger * Per wound care note (09/07): sacral ulcer is stable per wound care nurse * 09/14/17: Sacral Ulcer is unstageable and area of blackness fills entire circumference. General Surgery consult placed to see if debridement is necessary. Continue Cavelon [place] followed by paulina thick coating of MediHoney followed by covering with OptiFoam. * 09/15/17: Surgery Team debrided Sacral Ulcer and Bone Scan will need to be followed up which was performed 09/17/17 * 09/18/17: With the help of Nurse Guzman, applied Cavelon [place] followed by thick coating of MediHoney followed by covering with OptiFoam * 09/19/17: Dressing for Sacral Ulcer already changed before my exam. Explained to Nurse Guzman that best application of MediHoney would be to cover the padding of the OptiFoam with it and then apply the OptiFoam to the ulcer. * Sacral Ulcer (09/15/17): VRE and Reny Albicans * Sacral Ulcer (09/14/17): VRE and Reny Albicans * c/w Tigecycline (09/16/17: which will cover the VRE in Sacral Wound Culture 09/14/17 and the possibility of Sacral Osteomyelitis) and Diflucan 200 mg PO 1x/ day (09/13/17: which will cover with Yeast in the Sputum, Urine, and Sacral Wound Culture) Status: Acute (16) Elevated LFTs Assessment and Plan: * Have normalized * Currently on Diflucan since 09/13/17 * Will restart patient's statin (17). Hx Constipation * Monitor bowel movement * 09/20/17; discussed with ICU nurse, patient had bowel movement today and yesterday (18). Hyponatremia * 09/19/17: at 127 monitor for now (19). Prophylactic measure Assessment and Plan: * Pepcid 20mg PO daily * Start Eliquis 2.5mg PO BID * s/p peg placement 08/25 * s/p trachesostomy 08/22 * s/p Permcath placement 08/22 removal Kurtis catheter * s/p right posterior chest tube 08/19-->removed 08/24 * s/p Right Arm PICC 08/26 * Passy [place] Trach placed 09/15 * (Jovita Serrano): -->number provided to the nurse- ->consented for peg placement; discussed about LTAC 08/26 * Spoke with Dr. Pickard, MARIAJOSE regarding patient's hospitalization up until this point 08/26 Disposition: * Awaiting from case management in regards to discharge to subacute rehab * Patient is currently on IV abx for sacral wound and urinary tract infection; will monitor CBC, and repeat procalcitonin, and wound culture
--- NOTE | 2017-09-20 15:56 | CP.PCM.PN ---
Subjective - Date & Time of Evaluation Date of Evaluation: 09/20/17 Time of Evaluation: 07:54 - Subjective Subjective: SURGERY PROGRESS NOTE FOR DR. NEWELL Patient seen and examined. He is OOB to chair. Pt is non-verbal. Objective - Vital Signs/Intake and Output Vital Signs (last 24 hours): Temp Pulse Resp BP Pulse Ox 98.9 F 86 9 L 118/41 L 100 09/20/17 08:00 09/20/17 10:31 09/20/17 10:31 09/20/17 10:31 09/20/17 10:31 Intake and Output: 09/20/17 09/20/17 06:59 18:59 Intake Total 450 Output Total 0 Balance 450 0 - Medications Medications: Current Medications Acetylcysteine (Acetylcysteine 20%) 4 ml INH RQ6 [facility] Last Admin: 09/20/17 14:30 Dose: 4 ml Albuterol/Ipratropium (Duoneb 3 Mg/0.5 Mg (3 Ml) Ud) 3 ml INH RQ6 [facility] Last Admin: 09/20/17 14:30 Dose: 3 ml Apixaban (Eliquis) 2.5 mg PO BID [facility] Last Admin: 09/20/17 09:56 Dose: 2.5 mg Aspirin (Aspirin Chewable) 81 mg PO DAILY [facility] Last Admin: 09/20/17 09:55 Dose: 81 mg Calcium Acetate (Phoslo) 667 mg GT TID [facility] Last Admin: 09/20/17 09:55 Dose: 667 mg Epoetin Chencho (Procrit) 10,000 unit IV MWF [facility] Last Admin: 09/19/17 13:15 Dose: 10,000 unit Famotidine (Pepcid) 20 mg PO DAILY [facility] Last Admin: 09/20/17 09:55 Dose: 20 mg Fluconazole (Diflucan) 200 mg PO DAILY [facility] Last Admin: 09/20/17 09:56 Dose: 200 mg Tigecycline 50 mg/ Sodium (Chloride) 100 mls @ 100 mls/hr IVPB Q12H [facility] Last Admin: 09/20/17 11:50 Dose: 100 mls/hr Insulin Aspart (Novolog) 0 unit SC Q6 [facility] PRN Reason: Protocol Last Admin: 09/20/17 11:55 Dose: Not Given Insulin Detemir (Levemir) 43 unit SC Q12 [facility] Last Admin: 09/20/17 09:56 Dose: 43 unit Lactobacillus Acidophilus (Bacid Acidophilus) 1 cap PO BID [facility] Last Admin: 09/20/17 09:55 Dose: 1 cap Metoprolol Tartrate (Lopressor) 50 mg PO BID [facility] Last Admin: 09/20/17 09:56 Dose: 50 mg Rosuvastatin Calcium (Crestor) 10 mg PO HS [facility] Last Admin: 08/26/17 22:41 Dose: 10 mg - Labs Labs: 09/20/17 06:04 09/20/17 06:04 PT 13.9 SECONDS (9.7-12.2) H 08/24/17 06:08 INR 1.2 08/24/17 06:08 APTT 55 SECONDS (21-34) H D 08/17/17 06:12 - Constitutional Appears: Non-toxic, No Acute Distress - Head Exam Head Exam: ATRAUMATIC, NORMAL INSPECTION - Respiratory Exam Respiratory Exam: NORMAL BREATHING PATTERN (trach). absent: Respiratory Distress - Cardiovascular Exam Cardiovascular Exam: +S1, +S2 - GI/Abdominal Exam Additional comments: PEG - Skin Additional comments: Sacral decubitus ulcer [id number] Assessment and Plan - Assessment and Plan (Free Text) Assessment: 77yo M with Stage III sacral decub s/p debridement 5 days ago - Continue daily dressing changes with zaki or as per wound care nurse - Continue Abx - Dw attending Eloise Hahn PGY-3
[2017-09-21] MEDS: Albuterol-Ipratrop 3 mg / 0.5 (3 ml) UD INH SCH ×4 (01:13→20:00)
[2017-09-21] MEDS: Acetylcysteine 20% Inhal Soln (4ml) INH SCH ×4 (01:13→20:00)
[2017-09-21] MEDS: (Novolog) Insulin Aspart, Recombinant 100 u/ml 10 ml vial SC SCH ×3 (05:41→17:43)
[2017-09-21] MEDS: Epoetin Alfa 10,000 unit/ml Dialysis IV SCH (10:14)
--- NOTE | 2017-09-21 10:29 | CP.PCM.PN ---
Subjective - Date & Time of Evaluation Date of Evaluation: 09/21/17 Time of Evaluation: 09:00 - Subjective Subjective: Pulmonology Note for Dr. Mena's Service Patient was seen and examined at bedside. Currently not on pressors. Tracheostomy changed to fenestrated one. Status post debridement, continued antibiotics. ROS unattainable. Objective - Vital Signs/Intake and Output Vital Signs (last 24 hours): Temp Pulse Resp BP Pulse Ox 98 F 95 H 15 112/36 L 98 09/21/17 08:43 09/21/17 08:43 09/21/17 08:43 09/21/17 09:43 09/21/17 08:43 Intake and Output: 09/21/17 09/21/17 06:59 18:59 Intake Total 600 Output Total 0 Balance 600 - Medications Medications: Current Medications Acetylcysteine (Acetylcysteine 20%) 4 ml INH RQ6 [facility] Last Admin: 09/21/17 08:05 Dose: 4 ml Albuterol/Ipratropium (Duoneb 3 Mg/0.5 Mg (3 Ml) Ud) 3 ml INH RQ6 [facility] Last Admin: 09/21/17 08:04 Dose: 3 ml Apixaban (Eliquis) 2.5 mg PO BID [facility] Last Admin: 09/20/17 17:56 Dose: 2.5 mg Aspirin (Aspirin Chewable) 81 mg PO DAILY [facility] Last Admin: 09/20/17 09:55 Dose: 81 mg Calcium Acetate (Phoslo) 667 mg GT TID [facility] Last Admin: 09/20/17 17:56 Dose: 667 mg Epoetin Chencho (Procrit) 10,000 unit IV MWF [facility] Last Admin: 09/21/17 10:14 Dose: 10,000 unit Famotidine (Pepcid) 20 mg PO DAILY [facility] Last Admin: 09/20/17 09:55 Dose: 20 mg Fluconazole (Diflucan) 200 mg PO DAILY [facility] Last Admin: 09/20/17 09:56 Dose: 200 mg Heparin Sodium (Porcine) (Heparin) 3,700 units IVP TTS [facility] Stop: 10/07/17 23:59 Last Admin: 09/21/17 10:14 Dose: 3,700 units Tigecycline 50 mg/ Sodium (Chloride) 100 mls @ 100 mls/hr IVPB Q12H [facility] Last Admin: 09/20/17 23:44 Dose: 100 mls/hr Insulin Aspart (Novolog) 0 unit SC Q6 [facility] PRN Reason: Protocol Last Admin: 09/21/17 05:41 Dose: Not Given Insulin Detemir (Levemir) 43 unit SC Q12 [facility] Last Admin: 09/20/17 21:32 Dose: 43 unit Lactobacillus Acidophilus (Bacid Acidophilus) 1 cap PO BID [facility] Last Admin: 09/20/17 17:56 Dose: 1 cap Metoprolol Tartrate (Lopressor) 50 mg PO BID [facility] Last Admin: 09/20/17 17:56 Dose: 50 mg Rosuvastatin Calcium (Crestor) 10 mg PO HS [facility] Last Admin: 08/26/17 22:41 Dose: 10 mg - Labs Labs: 09/20/17 06:04 09/20/17 06:04 PT 13.9 SECONDS (9.7-12.2) H 08/24/17 06:08 INR 1.2 08/24/17 06:08 APTT 55 SECONDS (21-34) H D 08/17/17 06:12 - Additional Findings Additional findings: - Head Exam Head Exam: NORMAL INSPECTION - Eye Exam Eye Exam: could not evaluate EOM due to patient's current status Pupil Exam: round, equal, and reactive to light - Respiratory Exam Respiratory Exam: Decreased Breath Sounds bilateral lower lung buchanan but limited due to lack of patient participation Additional comments: Trach Collar - Cardiovascular Exam Cardiovascular Exam: REGULAR RHYTHM, +S1, +S2 - GI/Abdominal Exam GI & Abdominal Exam: Distended, Soft, BSx4 , could not palpate liver and spleen , PEG Tube Insertion Site LUQ without evidence of cellutlitis. absent: Firm, Guarding, Rigid, Tenderness, Rebound Additional comments: obese habitus, Peg Tube insertion site without signs of cellulitis - Extremities Exam Extremities Exam: Normal Capillary Refill, Pedal Edema. absent: Tenderness Additional comments: Prevalon boots b/l - Neurological Exam Additional comments: Could not be performed due to lack of patient participation - Skin Skin Exam: Sacral Ulcer S/P debridement with healthy tissue at base/ subcutaneous fat visible with few scattered black areas. Shallow Ulcer Left outer ear that is healed. Right heal blister without surrounding signs of cellulitis Assessment and Plan - Assessment and Plan (Free Text) Plan: Acute Respiratory Failure ARDS Cardiac Arrest Pulmonary Edema NSTEMI S/P Tracheostomy 08/22 S/P Peg tube placement 08/25 Currently on Acetylcysteine 20 % Neb Q6H and Duoneb Q6H Passy [place] Trach placed by Director Rehabilitation Program CXR unchanged 09/20/17 Continue current management Acute on chronic renal failure CHF (congestive heart failure) CKD (chronic kidney disease) Pneumonia Diflucan and Tigecycline Q12 History of DVT (deep vein thrombosis) DW Sung Ivey DO, PGY-1
[2017-09-21] MEDS: Lactobacillus Acidophilus 500 MU Cap PO SCH ×2 (10:37→17:43)
[2017-09-21] MEDS: Insulin Detemir 100 units/ml Vial (Levemir) SC SCH ×2 (10:38→22:00)
--- NOTE | 2017-09-21 11:06 | CP.PCM.PN ---
<Sina White - Last Filed: 09/21/17 11:02> Subjective - Date & Time of Evaluation Date of Evaluation: 09/21/17 Time of Evaluation: 11:02 - Subjective Subjective: Medicine Progress Note for Dr. Lazar HPI: Patient seen and examined at bedside. More awake/aware. Smiles. NAD. ROS unattainable. Objective - Vital Signs/Intake and Output Vital Signs (last 24 hours): Temp Pulse Resp BP Pulse Ox 98 F 95 H 15 112/36 L 98 09/21/17 08:43 09/21/17 08:43 09/21/17 08:43 09/21/17 09:43 09/21/17 08:43 Intake and Output: 09/21/17 09/21/17 06:59 18:59 Intake Total 600 Output Total 0 Balance 600 - Medications Medications: Current Medications Acetylcysteine (Acetylcysteine 20%) 4 ml INH RQ6 [facility] Last Admin: 09/21/17 08:05 Dose: 4 ml Albuterol/Ipratropium (Duoneb 3 Mg/0.5 Mg (3 Ml) Ud) 3 ml INH RQ6 [facility] Last Admin: 09/21/17 08:04 Dose: 3 ml Apixaban (Eliquis) 2.5 mg PO BID [facility] Last Admin: 09/21/17 10:37 Dose: 2.5 mg Aspirin (Aspirin Chewable) 81 mg PO DAILY [facility] Last Admin: 09/21/17 10:37 Dose: 81 mg Calcium Acetate (Phoslo) 667 mg GT TID [facility] Last Admin: 09/21/17 10:37 Dose: 667 mg Epoetin Chencho (Procrit) 10,000 unit IV MWF [facility] Last Admin: 09/21/17 10:14 Dose: 10,000 unit Famotidine (Pepcid) 20 mg PO DAILY [facility] Last Admin: 09/21/17 10:37 Dose: 20 mg Fluconazole (Diflucan) 200 mg PO DAILY [facility] Last Admin: 09/21/17 10:41 Dose: 200 mg Heparin Sodium (Porcine) (Heparin) 3,700 units IVP TTS [facility] Stop: 10/07/17 23:59 Last Admin: 09/21/17 10:14 Dose: 3,700 units Tigecycline 50 mg/ Sodium (Chloride) 100 mls @ 100 mls/hr IVPB Q12H [facility] Last Admin: 09/20/17 23:44 Dose: 100 mls/hr Insulin Aspart (Novolog) 0 unit SC Q6 [facility] PRN Reason: Protocol Last Admin: 09/21/17 05:41 Dose: Not Given Insulin Detemir (Levemir) 43 unit SC Q12 [facility] Last Admin: 09/21/17 10:38 Dose: 43 unit Lactobacillus Acidophilus (Bacid Acidophilus) 1 cap PO BID [facility] Last Admin: 09/21/17 10:37 Dose: 1 cap Metoprolol Tartrate (Lopressor) 50 mg PO BID [facility] Last Admin: 09/21/17 10:39 Dose: Not Given Rosuvastatin Calcium (Crestor) 10 mg PO HS [facility] Last Admin: 08/26/17 22:41 Dose: 10 mg - Labs Labs: 09/20/17 06:04 09/20/17 06:04 PT 13.9 SECONDS (9.7-12.2) H 08/24/17 06:08 INR 1.2 08/24/17 06:08 APTT 55 SECONDS (21-34) H D 08/17/17 06:12 - Additional Findings Additional findings: - Constitutional Appears: Chronically Ill - Head Exam Head Exam: ATRAUMATIC, NORMAL INSPECTION, NORMOCEPHALIC - ENT Exam ENT Exam: Mucous Membranes Moist - Neck Exam Additional comments: trach - Respiratory Exam Respiratory Exam: Clear to Ausculation Bilateral, NORMAL BREATHING PATTERN - GI/Abdominal Exam GI & Abdominal Exam: Soft, Normal Bowel Sounds. absent: Distended, Tenderness - Extremities Exam Extremities Exam: absent: Joint Swelling, Tenderness - Back Exam Additional comments: 10x10 sacral decub stage 3 clean moist base, no necrotic tissue. Dressing changed with optifoam/medihoney. - Neurological Exam Neurological Exam: Alert, Awake - Skin Skin Exam: Dry, Normal Color, Warm. absent: Intact Assessment and Plan - Assessment and Plan (Free Text) Assessment: (1) Acute Respiratory Failure ARDS Cardiac Arrest Pulmonary Edema Nonstemi Assessment and Plan: * Code Blue on 08/10: asystole, cardiopulmonary resuscitative measures initiated , requiring 3 epis, bicarbonate, ROSC achieved and intubated and brought to the ICU for further management; Patient in the ICU from 08/10 until present. * Pulmonary: Dr Mena (Dr. Jeffers covering until 09/04/17)-->help appreciated * Cardiology: Dr. Cortés on board-->help appreciated * GI (Dr. Wills) on board-->help appreciated * S/P Tracheostomy 08/22 * S/P Peg tube placement 08/25 * s/p insertion of right posterior chest tube 08/19-->removed 08/24/17 * There was consideration for possible thoracentesis of left side pleural effusion, evaluated by IR, there is no fluid to drain per Dr. Gross * Chest xray (08/26): right arm PICC is seen with the tip of distal subclavian vein. PICC may be used * Per cardiology, * Restart Aspirin 81mg PO daily * Patient does not need Plavix at this time * Recommend for Eliquis 2.5mg PO BID for atrial flutter * 08/27: patient is pending LTAC, he went eventually need cardiac catheterization when he has stabilized. Held statin secondary to elevated LFTs. Discussed with Dr. Cortés, lowered Amiodarone 200mg PO daily * 08/28: patient is pending LTAC, he went eventually need cardiac catheterization when he has stabilized. 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 Nehal has sent request to insurance for authorization for LTAC-->pending * 09/06: pending social work/case management approval for LTAC * 09/07: pending social work/case management approval for LTAC * 09/08: Unable to get approval for LTAC; pending other options * 09/09: Transferred from step-down ICU to the floors * 09/13: Trasnferred back to ICU S/P Rapid Response for low blood pressure * 09/14: Currently on Acetylcysteine 20 % Neb Q6H and Duoneb Q6H * 09/15: Passy Flex Trach placed by Showroom Executive Director (2) Abnormal Stress Test History of AICD History of Coronary Artery Disease Assessment and Plan: * Cardiology (Dr. Cortés) on board-->help appreciated * TSH: 1.16; T4: 1.53 * Echocardiogram (08/08/17): left ventricle systolic function is severely impaired. EF: 25-30%; global hypokinesis of left ventricle mild aortic regurgitation. Mitral regurgitation is moderate. Moderate-severe pulmonary hypertension * Plan was for cardiac catheterization; delayed due to acute renal failure; Attempted gentle hydration and mucomyst on 08/09 to optimize prior to cath * On 08/10, patient was in asystole, ACLS protocol, ROSC achieved, intubated and transfered to the ICU. Patient in acute pulmonary edema. * Patient hospitalized in the ICU since 08/10/17 to present. * Medications: * Aspirin 81mg PO daily * Plavix d/c by cardiology * Lopressor 50mg PO bid * d/c Crestor 10mg POqHS secondary to rise in LFTS 08/27--->monitor LFTs daily * ARB d/c secondary to acute renal failure * 08/27: patient is pending LTAC, he went eventually need cardiac catheterization when he has stabilized. Held statin secondary to elevated LFTs. Discussed with Dr. Cortés, lowered Amiodarone 200mg PO daily * 08/28: He will eventually need cardiac catheterization when he has stabilized. Liver function tests improving. Statin is on hold (3) Atrial flutter Assessment and Plan: * Cardiology (Dr. Cortés) on board-->help appreciated * Refractory to Lopressor/Cardizem IVP * Eliquis 2.5mg PO bid * Amiodarone bolus-->Amiodarine drip on 08/24-->converted to Amiodarone 200mg PO TID on 08/26 and this was decreased to 200 mg 1x/day due to increased LFTs * 08/27: Discussed with Dr. Cortés, will lower Amiodarone 200mg PO daily and monitor LFTs. Statin held and tylenol d/c * 08/29: patient is pending LTAC, he will eventually need cardiac catheterization when he has stabilized. Liver function tests improving. Statin is on hold due to the elevated LFTs * 08/30: Cardiology discontinued the Amiodarone * 09/07: Held eliquis; will need to resume * 09/09: Eliquis resumed, off Amiodarone Status: Acute (4) Acute on Chronic Systolic CHF exacerbation Assessment and Plan: * Cardiology (Dr. Cortés) on board-->help appreciated * Transferred to the ICU on 08/10 following cardiac arrest and intubation. * Echocardiogram (08/08/17): left ventricular systolic function is severely impaired. EF: 25-30%; global hypokinesis of left ventricle mild aortic regurgitation. Mitral regurgitation is moderate. Moderate-severe pulmonary hypertension * Medications: * Aspirin 81mg PO daily * Plavix d/c by cardiology * Lopressor 50mg PO bid * d/c Crestor 10mg POqHS on 08/27 secondary to rise in LFTs * ARB d/c secondary to acute renal failure Status: Acute (5) Leukocytosis Assessment and Plan: * Patient's white count downtrending * Pleural Fluid 08/19/17 did not show any growth * Blood cultures (08/26): no growth X5 days * UA and urine culture (08/27): Urine Culture showed Yeast Species. * Patient has elevated LFTs-->did not start anti-fungal in light of LFTs New: * 09/05/17 Blood: gram positive cocci-->pending speciation * 09/05/17 Blood: no growth after 4 days * 09/07/17 Legionella Culture: negative * 09/07/17 Mycobacteria: negative * 09/07/17 Sputum: Enterocloace Bacter; yeast * 09/07/17 Blood: negative X 48 hours * 09/07/17 Blood: negative X 48 hours * 09/06: stool culture pending; has not had diarrhea or bowel movement * 09/07: Dr. Zimmer (covering Dr. Lawrence) to see the patient given elevated procalcitonin * Blood Culture 09/13/17 is negative to date and Urine Culture 09/13/17 showed Yeast Species * 09/14: Could this be secondary to the Septic Shock? Secondary to Osteomyelitis of the Sacrum? 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) and Meropenem 500 mg IV Q8H (09/13/17 through 09/16/17), Diflucan 200 mg PO 1x/day (09/13/17), Bactrim 10 mL PO Q12H (09/12/17 through 09/16/17), Tigecycline 50 mg IV Q12H (09/16/17 started because of VRE on Sacrum Wound Culture 09/14/17) * ESR 09/14/17 elevated at 89 * Bone Scan performed 09/17/17 to check for Osteomyelitis at the Sacrum: results are pending * Meropenem 500 mg IV Q12H (09/13/17 through 09/16/17: which will cover the Enterbacter in the Sputum 09/07/17 and the possibility of Sacral Osteomyelitis) * Antibiotics as of 09/17/17:Tigecycline (09/16/17: which will cover the VRE in Sacral Wound Culture 09/14/17 and the possibility of Sacral Osteomyelitis) and Diflucan 200 mg PO 1x/day (09/13/17: which will cover with Yeast in the Sputum, Urine, and Sacral Wound Culture) Status: Acute (6) Pneumonia Assessment and Plan: * Pulmonary (Dr. Mena) on board-->help appreciated; Dr. Jeffers covering while Dr. Mena away * Infectious Disease (Dr. Lawrence)-->help appreciated * Chest xray (08/26): right arm PICC is seen with the tip of distal subclavian vein. PICC may be used * Rapid A strep, Influenza A and B studies, Urine Legionella, Mycoplasma studies = Negative * Florastor 250mg PO bid * 08/07/17: +Strep Pneumoniae in the urine * Meropenem 500mg IV Q 8 hours (08/14/17 through 08/18/17) and Zosyn 2.25 mg IV Q6H (08/13/17 through 08/18/17) * Cefepime 1 gm IV Q24H: started on 08/19/17 and was discontinued by ID Dr. Lawrence on 08/30/17: monitor vitals and labs * s/p right posterior chest tube 08/19-08/24 * Sputum Culture 08/19/17 shows No growth * Pleural fluid 08/19/17: No growth * 09/07/17 Sputum: Enterocloace Bacter and Yeast Species: See Antibiotic treatment in previous Assessment and Plan * Sputum 09/10/17 shows NO AFB Status: Acute (7) HTN (hypertension) Assessment and Plan: * Lopressor 50mg PO bid * Lisinopril 5mg PO daily Status: Chronic (8) CKD (chronic kidney disease) on Dialysis Assessment and Plan: * Dr. Miranda (nephrology) consulted on the case * Hx of CKD-->Started on dialysis 08/15/17 * Kurtis catheter placed and removed 08/22 * s/p Right Chest Permcath 08/22 * Patient is on dialysis -W-; oliguric * Phoslo 1334mg GT TID * Epoetin 10,000 unit IV MWF Status: Acute (9) Diabetes mellitus Assessment and Plan: * Accuchecks Q6H * HgbA1c 8.4 * Started peg feedings on 08/26/17 * Nepro-->50 ml/hour but this was held 09/13/17 due suspicion of Bowel Obstruction as NO bowel Movement since 09/07/17. This was restarted on after NO obstruction was observed on Obstruction Series 09/13/17 and after multiple bowel movement s/p Fleet Enema 09/13/17 (10) HLD (hyperlipidemia) Assessment and Plan: * 08/27: held Crestor 10 mg PO HS secondary to rise in LFTs * 08/29: Liver function tests improving; waiting to restart statin Status: Chronic (11) Anemia Assessment and Plan: * Heme-oncology (Dr. Giles bender) on board-->help appreciated * Likely iron deficiency anemia based on prior admissions * Ferritin 27.4, Iron 22, TIBC 322, % Saturation 7 * Ferric Sodium Gluconate 125mg IVPB daily (active 08/08-08/16) * Procrit 10,000 units * Monitor Hgb/Hct: stable Status: Chronic (12) History of DVT (deep vein thrombosis) Assessment and Plan: * Patient was previously on Eliquis for a prior history of DVT. * Repeat dopplers 08/09/17 are negative for DVT * Off Heparin Drip 08/17/17 * Started Eliquis 2.5mg PO BID for atrial flutter and history of DVT Status: Chronic (13) UTI Assessment and Plan: * Infectious disease (Dr. Lawrence) on board-->help appreciated * Exchange jaquez out and repeat urine cultures * Urine Culture 08/12/17 showed Gram Negative Rods: NO identification and NO sensitivities were performed * Meropenem 500mg IV Q 12hours (active since 08/14/17 through 08/18/17) to cover for UTI per ID * Repeat Urine Culture 08/18/17 shows NO growth * 08/25: reculture in light of leukocytosis * 08/27: pending urine studies * 08/30: Urine Culture 08/27/17 showed Yeast Species but no antifungal at that time secondary to recent history of Elevated LFTs * Urine Culture 09/13/17 showed Yeast Species: he is on Diflucan Status: Chronic (14) Confusion; Alzheimer's Dementia Assessment and Plan: * Per daughter, patient has been getting bouts of confusion over the past year but appears at baseline. Patient has not seen formal neurology as outpatient per daughter. Per , prior to event, noted Alzheimers' disease dx one year ago * CT head w/o contrast (08/10/17):acute os subacute lacune infarct is not excluded in the left basal ganglia inferiorly with definitive chronic lacune identified in the right basal ganglia superiorly. No acute or subacute lobar brain infarction is appreciable by standard CT criteria. Mild age-related neuro degenerative changes are identifed. No acute intracranial hemorrhage or mass is identified throughout * 08/26: Off Sedation-->patient moves all extremities randomly but does not follow directions * 08/27: off sedation-->patient is very calm, smiles at his * 08/28: off sedation-->patient is very calm Status: Chronic (15) Unstageable Sacral Ulcer, Left Ear Auricle Ulcer, Right Heal Ulcer Assessment and Plan: * Wound care on board * WOUND CARE NOTE (08/26)-->Pt with a sacral unstageable being treated with medihoney. No changes to dimensions at this time. Also, pt favoring Left side of head and has developed a 1x1 serous filled blister on his left ear. Primary nurse placed duoderm on the ear. Wound care nurse left duoderm in place , and recommends leaving it on until it falls off on its own. Pt has been NPO for several days, new peg inserted yesterday. Will be starting glucerna tube feedings later today. Albumin 3.3 * Turn q 2 hours * medihoney on unstageable ulcer * duoderm on left ear aurical ulcer: this is healed as of 09/15/17 * Prevalon Boots for Right Heal Blister 09/13/17 * 09/02/17: examined with Wound Care Nurse Emeka Samuel and periphery of the Sacral Wound is pink with some bleeding however center is still black and therefore still unstageable. Continue spray with Cavelon followed by thick coating with MediHoney followed by covering with OptiFoam once a day. * 09/03/17: Change of sacral ulcer dressing was performed by me with assitance from Nurse Esmer * 09/04/17: 09/03/17: Change of sacral ulcer dressing was performed by me with assistance from ALEXANDRA Unger * Per wound care note (09/07): sacral ulcer is stable per wound care nurse * 09/14/17: Sacral Ulcer is unstageable and area of blackness fills entire circumference. General Surgery consult placed to see if debridement is necessary. Continue Cavelon [place] followed by paulina thick coating of MediHoney followed by covering with OptiFoam. * 09/15/17: Surgery Team debrided Sacral Ulcer and Bone Scan will need to be followed up which was performed 09/17/17 * 09/18/17: With the help of Nurse Guzman, applied Cavelon [place] followed by thick coating of MediHoney followed by covering with OptiFoam * 09/19/17: Dressing for Sacral Ulcer already changed before my exam. Explained to Nurse Guzman that best application of MediHoney would be to cover the padding of the OptiFoam with it and then apply the OptiFoam to the ulcer. Status: Acute (16) Elevated LFTs Assessment and Plan: * 08/27: Yina * Discussed with cardiology-->changed amiodarone 200mg PO tid to amiodaron 200mg PO daily * D/C tylenol * Held Statin * patient is also on Rocephin to cover for pneumonia * Will not start antifungal * 08/29: starting to down trending since change in amiodarone dose; awaiting to restart statin * 08/30: continues to trend down. Amiodarone was discontinued * 09/01: AST, ALT, Alk Phos still elevated but stable * 09/02: AST, ALT, Alk Phos still elevated but stable * 09/03: LFTs stable * 09/04: LFTs stable Status: Acute (17). Hx Constipation * Monitor bowel movement * Multiple bowel movements on 09/13/17 and 09/14/17 that are well formed s/p Fleet Enema on 09/13/17 * 09/15/17: NO bowel movement * 09/16/17: Soft pasty bowel movement * 09/17/17: Soft pasty bowel movement * 09/18/17: NO bowel movement * 09/19/17: ordered one dose of Lactulose 20 gm via PEG as still no bowel movement (18). Hyponatremia * 09/19/17: at 127 monitor for now (19). Prophylactic measure Assessment and Plan: * Pepcid 20mg PO daily * Start Eliquis 2.5mg PO BID * s/p peg placement 08/25 * s/p trachesostomy 08/22 * s/p Permcath placement 08/22 removal Kurtis catheter * s/p right posterior chest tube 08/19-->removed 08/24 * s/p Right Arm PICC 08/26 * (Jovita Serrano): -->number provided to the nurse- ->consented for peg placement; discussed about LTAC 08/26 * Spoke with Dr. Pickard, [place] regarding patient's hospitalization up until this point 08/2609/01/17: Dr. Cullen Barth spoke with the patient's [place] with the assistance of Nurse Campos on 3 tower (as multiple attempts of using AYLIENd indicated that all of the [place] translators were busy) and explained all of the patient's diagnosises. 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 Her ultimate wish is to take patient to [facility] where their children live. I explained to patient that I would not know how that would be coordinated but that the Social Workers/Data Entry Machine Operator at LTAC may be of assistance in this regard. I also informed her that I am not aware of any insurance company that would finance this request. She understands that the patient is awaiting insurance approval for LTAC. 09/01/17 and 09/02/17: Dr. Cullen Barth spoke with Wildlife Refuge Specialist Demetria and we are still awaiting insurance authorization for LTAC placement. 09/05/17: Spoke with nehal outreach and education social worker, wean trials sent to LTAC pending approval no word yet regarding approval. Ordered for repeat cultures given uptrend in white count. 09/06/17: pending repeat cultures in light of elevated procalcitonin; ID recommended to reculture. Note: patients PICC lined had clogged ports. Red port remains clogged in spite of cath rafaela. Blue port improved after cath rafaela. Possible may need to remove line to r/o infected line. Strong suspicion due to patient's pneumonia given he has thick secretions. 09/07/17: Infectious disease. pending repeat cultures in light of elevated procalcitonin; Note: patients PICC lined had clogged ports. Red port remains clogged in spite of cath rafaela. Blue port improved after cath rafaela. Hip xray negative for acute fracture. There are no noted falls. 09/08/17: Patient denied for LTAC; awaiting for other options from case management/social work. Resident Eng spoke with Dr. Cortés, patient be transferred under regular bed, when bed is available. Infectious disease on board; Patient started on IV Vancomycin in light of + blood culture. Pending chest xray. 09/09/17: Patient denied for LTAC; awaiting for other options from case management/social work with kamlesh verdin support. Patient started on IV Vancomycin MWF in light of + blood culture. Pending chest xray. F/U sputum with ID. f/u latest blood cultures. 09/13/17: Rapid response for low blood pressure and elevated WBC likely Septic Shock. Started on Levophed, added Meropenem to Vancomycin and 1 dose of Gentamycin given after speaking with ID. Ordered Obstruction Series as no bowel movement since 09/07/17. F/U Shock Panel. Discussed with ICU Resident to arrange for Change of Right Arm Midline line and Trach Collar. 09/14/17: Will await results of Blood Culture 09/13/17 to determine if the Right Arm Midline, Right Chest Perm Cath, and Trach Collar needs to be changed. Spoke with Wildlife Refuge Specialist Demetria in ICU and patient information has been sent to [facility] (they accept patients on Trach) and she is awaiting to hear back from them before submitting approval request to insurance company. 09/15/17: Passy [place] Trach placed by Showroom Executive Director. Surgical Team for debridement of Sacral Ulcer. Spoke with patient's ([place] [id number]) and explained/updated her on patient condition and obtained consent for sacral ulcer debridement. 09/16/17: Still awaiting performance of Sacral Bone Scan 09/17/17: Bone Scan performed and awaiting results 09/18/17: Awaiting Bone Scan Report 09/19/17: Still awaiting Bone Scan Report. Spoke again with Wildlife Refuge Specialist Demetria and NO word yet from [facility] or [place] (they do treat patients with Trachs). 09/20/17: Repeat Wound culture and urine culture sent. Dressing changed with medihoney and optifoam. No other changes at this time. Still waiting for approval for [facility] 09/21/17: No changes at this time. Will continue to change wound dressing Q3D and follow up with case management for for usp transfer. <Mariangel Lazar V - Last Filed: 09/21/17 16:51> Objective - Vital Signs/Intake and Output Vital Signs (last 24 hours): Temp Pulse Resp BP Pulse Ox 99 F 100 H 14 120/45 L 100 09/21/17 12:14 09/21/17 15:24 09/21/17 15:24 09/21/17 15:24 09/21/17 15:24 Intake and Output: 09/21/17 09/21/17 06:59 18:59 Intake Total 600 400 Output Total 0 0 Balance 600 400 - Medications Medications: Current Medications Acetylcysteine (Acetylcysteine 20%) 4 ml INH RQ6 [facility] Last Admin: 09/21/17 14:25 Dose: 4 ml Albuterol/Ipratropium (Duoneb 3 Mg/0.5 Mg (3 Ml) Ud) 3 ml INH RQ6 [facility] Last Admin: 09/21/17 14:25 Dose: 3 ml Apixaban (Eliquis) 2.5 mg PO BID [facility] Last Admin: 09/21/17 10:37 Dose: 2.5 mg Aspirin (Aspirin Chewable) 81 mg PO DAILY [facility] Last Admin: 09/21/17 10:37 Dose: 81 mg Calcium Acetate (Phoslo) 1,334 mg GT TID [facility] Last Admin: 09/21/17 13:14 Dose: 1,334 mg Epoetin Chencho (Procrit) 10,000 unit IV MWF [facility] Last Admin: 09/21/17 10:14 Dose: 10,000 unit Famotidine (Pepcid) 20 mg PO DAILY [facility] Last Admin: 09/21/17 10:37 Dose: 20 mg Fluconazole (Diflucan) 200 mg PO DAILY [facility] Last Admin: 09/21/17 10:41 Dose: 200 mg Heparin Sodium (Porcine) (Heparin) 3,700 units IVP TTS [facility] Stop: 10/07/17 23:59 Last Admin: 09/21/17 10:14 Dose: 3,700 units Tigecycline 50 mg/ Sodium (Chloride) 100 mls @ 100 mls/hr IVPB Q12H [facility] Last Admin: 09/21/17 13:00 Dose: 100 mls/hr Insulin Aspart (Novolog) 0 unit SC Q6 [facility] PRN Reason: Protocol Last Admin: 09/21/17 13:14 Dose: 2 unit Insulin Detemir (Levemir) 43 unit SC Q12 [facility] Last Admin: 09/21/17 10:38 Dose: 43 unit Lactobacillus Acidophilus (Bacid Acidophilus) 1 cap PO BID [facility] Last Admin: 09/21/17 10:37 Dose: 1 cap Metoprolol Tartrate (Lopressor) 50 mg PO BID [facility] Last Admin: 09/21/17 10:39 Dose: Not Given Rosuvastatin Calcium (Crestor) 10 mg PO HS [facility] Last Admin: 08/26/17 22:41 Dose: 10 mg - Labs Labs: 09/20/17 06:04 09/20/17 06:04 PT 13.9 SECONDS (9.7-12.2) H 08/24/17 06:08 INR 1.2 08/24/17 06:08 APTT 55 SECONDS (21-34) H D 08/17/17 06:12 Attending/Attestation - Attestation I have personally seen and examined this patient.: Yes I have fully participated in the care of the patient.: Yes I have reviewed all pertinent clinical information, including history, physical exam and plan: Yes Notes (Text): Patient seen, examined, and case discussed with day-time resident. Patient seen during dialysis. Patient does not appear in acute distress, Patient sacral wound changed yesterday, per resident appears granulation tissue , no necrosis, sarcral wound sample taken. Has opti-dressing. Will observe every 3 days. pending blood work. procalcitonin improved 8-->5. Pending placement Assessment/Plan (1) Acute Respiratory Failure ARDS Cardiac Arrest Pulmonary Edema Nonstemi Assessment and Plan: * Code Blue on 08/10: asystole, cardiopulmonary resuscitative measures initiated , requiring 3 epis, bicarbonate, ROSC achieved and intubated and brought to the ICU for further management; Patient in the ICU from 08/10 until present. * Pulmonary: Dr Mena (Dr. Jeffers covering until 09/04/17)-->help appreciated * Cardiology: Dr. Cortés on board-->help appreciated * GI (Dr. Wills) on board-->help appreciated * S/P Tracheostomy 08/22 * S/P Peg tube placement 08/25 * s/p insertion of right posterior chest tube 08/19-->removed 08/24/17 * Passy Flex Trach placed 09/15 * There was consideration for possible thoracentesis of left side pleural effusion, evaluated by IR, there is no fluid to drain per Dr. Gross * Chest xray (08/26): right arm PICC is seen with the tip of distal subclavian vein. PICC may be used * Chest Xray (09/20/17): lines and tubes stable position, left-sided pacemaker, moderate venous congestion, left basilar opacity with associated small left pleural effusion, Cardiomegaly. Prominent aorta, degenrative changes in spine and shoulders * Medications: * Acetylcysteine 20% 4ml INH RQ6H * Duoneb 3ml INH RQ6H * Aspirin 81mg PO daily * Eliquis 2.5mg PO bid * Lopressor 50mg PO bid (2) Abnormal Stress Test History of AICD History of Coronary Artery Disease Assessment and Plan: * Cardiology (Dr. Cortés) on board-->help appreciated * TSH: 1.16; T4: 1.53 * Echocardiogram (08/08/17): left ventricle systolic function is severely impaired. EF: 25-30%; global hypokinesis of left ventricle mild aortic regurgitation. Mitral regurgitation is moderate. Moderate-severe pulmonary hypertension * Plan was for cardiac catheterization; delayed due to acute renal failure; Attempted gentle hydration and mucomyst on 08/09 to optimize prior to cath * On 08/10, patient was in asystole, ACLS protocol, ROSC achieved, intubated and transfered to the ICU. Patient in acute pulmonary edema. * Patient hospitalized and require to and from ICU twice during this admission * Cardiac cath postponed at this time * Medications: * Acetylcysteine 20% 4ml INH RQ6H * Duoneb 3ml INH RQ6H * Aspirin 81mg PO daily * Eliquis 2.5mg PO bid * Lopressor 50mg PO bid (3) Atrial flutter Assessment and Plan: * Cardiology (Dr. Cortés) on board-->help appreciated * Refractory to Lopressor/Cardizem IVP * Eliquis 2.5mg PO bid * Off Amiodarone per cardiology * c/w Lopressor 50mg PO bid Status: Resolved (4) Acute on Chronic Systolic CHF exacerbation Assessment and Plan: * Cardiology (Dr. Cortés) on board-->help appreciated * Transferred to the ICU on 08/10 following cardiac arrest and intubation. * Echocardiogram (08/08/17): left ventricular systolic function is severely impaired. EF: 25-30%; global hypokinesis of left ventricle mild aortic regurgitation. Mitral regurgitation is moderate. Moderate-severe pulmonary hypertension * Medications: * Aspirin 81mg PO daily * Lopressor 50mg PO bid * ARB d/c secondary to acute renal failure * Restart statin given LFTs normalized * Weight: 184; as high as 291 (questionable) on admission Status: Stable (5) Leukocytosis Assessment and Plan: * Pleural Fluid 08/19/17 did not show any growth * Blood cultures (09/13): no growth X5 days X2 * Blood cultures (09/07) during dialysis: no growth X5 days X2 * UA and urine culture (08/27): Yeast Species. * UA and urine culture (09/13): Yeast Species. 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 * Sacral Ulcer (09/14/17): VRE and Reny Albicans * Blood Culture 09/13/17 is negative to date and Urine Culture 09/13/17 showed Yeast Species * Bone Scan performed 09/17/17 to check for Osteomyelitis at the Sacrum: negative for osteomyelitis * OFF Meropenem 500 mg IV Q12H (09/13/17 through 09/16/17: which will cover the Enterbacter in the Sputum 09/07/17 and the possibility of Sacral Osteomyelitis) * c/w Tigecycline (09/16/17: which will cover the VRE in Sacral Wound Culture and the possibility of Sacral Osteomyelitis) and Diflucan 200 mg PO 1x/ day (09/13/17: which will cover with Yeast in the Sputum, Urine, and Sacral Wound Culture) * Procalcitionin: 8.60 (09/06/17)-->5.50 Status: Acute (6) Pneumonia Assessment and Plan: * Pulmonary (Dr. Mena) on board-->help appreciated * Infectious Disease (Dr. Lawrence)-->help appreciated * Chest xray (08/26): right arm PICC is seen with the tip of distal subclavian vein. PICC may be used * Rapid A strep, Influenza A and B studies, Urine Legionella, Mycoplasma studies = Negative * Florastor 250mg PO bid * 08/07/17: +Strep Pneumoniae in the urine * Meropenem 500mg IV Q 8 hours (08/14/17 through 08/18/17) and Zosyn 2.25 mg IV Q6H (08/13/17 through 08/18/17) * Cefepime 1 gm IV Q24H: started on 08/19/17 and was discontinued by ID Dr. Lawrence on 08/30/17: monitor vitals and labs * s/p right posterior chest tube 08/19-08/24 * Sputum Culture 08/19/17 shows No growth * Pleural fluid 08/19/17: No growth * 09/07/17 Sputum: Enterocloace Bacter and Yeast Species: See Antibiotic treatment in previous Assessment and Plan * Sputum 09/10/17 shows NO AFB Status: Acute (7) HTN (hypertension) Assessment and Plan: * Lopressor 50mg PO bid * Lisinopril 5mg PO daily Status: Chronic (8) CKD (chronic kidney disease) on Dialysis Assessment and Plan: * Dr. Miranda (nephrology) consulted on the case * Hx of CKD-->Started on dialysis 08/15/17 * Kurtis catheter placed and removed 08/22 * s/p Right Chest Permcath 08/22 * Patient is on dialysis M-W-F; oliguric * Phoslo 1334mg GT TID * Epoetin 10,000 unit IV MWF Status: Crhonic (9) Diabetes mellitus Assessment and Plan: * Accuchecks Q6H * HgbA1c 8.4 * Started peg feedings on 08/26/17 * Nepro-->50 ml/hour but this was held 09/13/17 due suspicion of Bowel Obstruction as NO bowel Movement since 09/07/17. This was restarted on after NO obstruction was observed on Obstruction Series 09/13/17 and after multiple bowel movement s/p Fleet Enema 09/13/17 (10) HLD (hyperlipidemia) Assessment and Plan: * LFTS have normalized; will restart statin 09/20/17 Status: Chronic (11) Anemia Assessment and Plan: * Heme-oncology (Dr. Giles bender) on board-->help appreciated * Likely iron deficiency anemia based on prior admissions * Ferritin 27.4, Iron 22, TIBC 322, % Saturation 7 * Ferric Sodium Gluconate 125mg IVPB daily (active 08/08-08/16) * Procrit 10,000 units -W- * Monitor Hgb/Hct: stable Status: Chronic (12) History of DVT (deep vein thrombosis) Assessment and Plan: * Patient was previously on Eliquis for a prior history of DVT. * Repeat dopplers 08/09/17 are negative for DVT * Off Heparin Drip 08/17/17 * Started Eliquis 2.5mg PO BID for atrial flutter and history of DVT Status: Chronic (13) UTI Assessment and Plan: * Infectious disease (Dr. Lawrence) on board-->help appreciated * Exchange jaquez out and repeat urine cultures * Urine Culture 08/12/17 showed Gram Negative Rods: NO identification and NO sensitivities were performed * Meropenem 500mg IV Q 12hours (active since 08/14/17 through 08/18/17) to cover for UTI per ID * Repeat Urine Culture 08/18/17 shows NO growth * 08/25: reculture in light of leukocytosis * 08/27: pending urine studies * 08/30: Urine Culture 08/27/17 showed Yeast Species but no antifungal at that time secondary to recent history of Elevated LFTs * Urine Culture 09/13/17 showed Yeast Species: he is on Diflucan Status: Chronic (14) Confusion; Alzheimer's Dementia Assessment and Plan: * Per daughter, patient has been getting bouts of confusion over the past year but appears at baseline. Patient has not seen formal neurology as outpatient per daughter. Per , prior to event, noted Alzheimers' disease dx one year ago * CT head w/o contrast (08/10/17):acute os subacute lacune infarct is not excluded in the left basal ganglia inferiorly with definitive chronic lacune identified in the right basal ganglia superiorly. No acute or subacute lobar brain infarction is appreciable by standard CT criteria. Mild age-related neuro degenerative changes are identifed. No acute intracranial hemorrhage or mass is identified throughout * 08/26: Off Sedation-->patient moves all extremities randomly but does not follow directions * 08/27: off sedation-->patient is very calm, smiles at his * 08/28: off sedation-->patient is very calm Status: Chronic (15) Unstageable Sacral Ulcer, Left Ear Auricle Ulcer, Right Heal Ulcer Assessment and Plan: * Wound care on board * WOUND CARE NOTE (08/26)-->Pt with a sacral unstageable being treated with medihoney. No changes to dimensions at this time. Also, pt favoring Left side of head and has developed a 1x1 serous filled blister on his left ear. Primary nurse placed duoderm on the ear. Wound care nurse left duoderm in place , and recommends leaving it on until it falls off on its own. Pt has been NPO for several days, new peg inserted yesterday. Will be starting glucerna tube feedings later today. Albumin 3.3 * Turn q 2 hours * medihoney on unstageable ulcer * duoderm on left ear aurical ulcer: this is healed as of 09/15/17 * Prevalon Boots for Right Heal Blister 09/13/17 * 09/02/17: examined with Wound Care Nurse Emeka Samuel and periphery of the Sacral Wound is pink with some bleeding however center is still black and therefore still unstageable. Continue spray with Cavelon followed by thick coating with MediHoney followed by covering with OptiFoam once a day. * 09/03/17: Change of sacral ulcer dressing was performed by me with assitance from Nurse Lyman * 09/04/17: 09/03/17: Change of sacral ulcer dressing was performed by me with assistance from ALEXANDRA Unger * Per wound care note (09/07): sacral ulcer is stable per wound care nurse * 09/14/17: Sacral Ulcer is unstageable and area of blackness fills entire circumference. General Surgery consult placed to see if debridement is necessary. Continue Cavelon [place] followed by paulina thick coating of MediHoney followed by covering with OptiFoam. * 09/15/17: Surgery Team debrided Sacral Ulcer and Bone Scan will need to be followed up which was performed 09/17/17 * 09/18/17: With the help of Nurse Guzman, applied Cavelon [place] followed by thick coating of MediHoney followed by covering with OptiFoam * 09/19/17: Dressing for Sacral Ulcer already changed before my exam. Explained to Nurse Guzman that best application of MediHoney would be to cover the padding of the OptiFoam with it and then apply the OptiFoam to the ulcer. * Sacral Ulcer (09/15/17): VRE and Reny Albicans * Sacral Ulcer (09/14/17): VRE and Reny Albicans * c/w Tigecycline (09/16/17: which will cover the VRE in Sacral Wound Culture 09/14/17 and the possibility of Sacral Osteomyelitis) and Diflucan 200 mg PO 1x/ day (09/13/17: which will cover with Yeast in the Sputum, Urine, and Sacral Wound Culture) Status: Acute (16) Elevated LFTs Assessment and Plan: * Have normalized * Currently on Diflucan since 09/13/17 * Will restart patient's statin (17). Hx Constipation * Monitor bowel movement * 09/20/17; discussed with ICU nurse, patient had bowel movement today and yesterday (18). Hyponatremia * 09/19/17: at 127 monitor for now (19). Prophylactic measure Assessment and Plan: * Pepcid 20mg PO daily * Start Eliquis 2.5mg PO BID * s/p peg placement 08/25 * s/p trachesostomy 08/22 * s/p Permcath placement 08/22 removal Kurtis catheter * s/p right posterior chest tube 08/19-->removed 08/24 * s/p Right Arm PICC 08/26 * Passy [place] Trach placed 09/15 * (Jovita Serrano): -->number provided to the nurse- ->consented for peg placement; discussed about LTAC 08/26 * Spoke with Dr. Pickard, PMD regarding patient's hospitalization up until this point 08/26 Disposition: * Awaiting from case management in regards to discharge to subacute rehab * Patient is currently on IV abx for sacral wound and urinary tract infection; monitor sacral wound
--- NOTE | 2017-09-21 12:07 | CP.PCM.PN ---
Subjective - Date & Time of Evaluation Date of Evaluation: 09/21/17 Time of Evaluation: 12:04 - Subjective Subjective: On dialysis now- to UF 1000ml Tolerating well PEG feeds in progress Phos elevated- increase binder dose Same confusional stste Objective - Vital Signs/Intake and Output Vital Signs (last 24 hours): Temp Pulse Resp BP Pulse Ox 98 F 102 H 22 112/41 L 100 09/21/17 08:43 09/21/17 10:58 09/21/17 10:58 09/21/17 11:43 09/21/17 10:58 Intake and Output: 09/21/17 09/21/17 06:59 18:59 Intake Total 600 200 Output Total 0 0 Balance 600 200 - Medications Medications: Current Medications Acetylcysteine (Acetylcysteine 20%) 4 ml INH RQ6 [facility] Last Admin: 09/21/17 08:05 Dose: 4 ml Albuterol/Ipratropium (Duoneb 3 Mg/0.5 Mg (3 Ml) Ud) 3 ml INH RQ6 [facility] Last Admin: 09/21/17 08:04 Dose: 3 ml Apixaban (Eliquis) 2.5 mg PO BID [facility] Last Admin: 09/21/17 10:37 Dose: 2.5 mg Aspirin (Aspirin Chewable) 81 mg PO DAILY [facility] Last Admin: 09/21/17 10:37 Dose: 81 mg Calcium Acetate (Phoslo) 1,334 mg GT TID [facility] Epoetin Chencho (Procrit) 10,000 unit IV MWF [facility] Last Admin: 09/21/17 10:14 Dose: 10,000 unit Famotidine (Pepcid) 20 mg PO DAILY [facility] Last Admin: 09/21/17 10:37 Dose: 20 mg Fluconazole (Diflucan) 200 mg PO DAILY [facility] Last Admin: 09/21/17 10:41 Dose: 200 mg Heparin Sodium (Porcine) (Heparin) 3,700 units IVP TTS [facility] Stop: 10/07/17 23:59 Last Admin: 09/21/17 10:14 Dose: 3,700 units Tigecycline 50 mg/ Sodium (Chloride) 100 mls @ 100 mls/hr IVPB Q12H [facility] Last Admin: 09/20/17 23:44 Dose: 100 mls/hr Insulin Aspart (Novolog) 0 unit SC Q6 [facility] PRN Reason: Protocol Last Admin: 09/21/17 05:41 Dose: Not Given Insulin Detemir (Levemir) 43 unit SC Q12 [facility] Last Admin: 09/21/17 10:38 Dose: 43 unit Lactobacillus Acidophilus (Bacid Acidophilus) 1 cap PO BID [facility] Last Admin: 09/21/17 10:37 Dose: 1 cap Metoprolol Tartrate (Lopressor) 50 mg PO BID [facility] Last Admin: 09/21/17 10:39 Dose: Not Given Rosuvastatin Calcium (Crestor) 10 mg PO HS [facility] Last Admin: 08/26/17 22:41 Dose: 10 mg - Labs Labs: 09/20/17 06:04 09/20/17 06:04 PT 13.9 SECONDS (9.7-12.2) H 08/24/17 06:08 INR 1.2 08/24/17 06:08 APTT 55 SECONDS (21-34) H D 08/17/17 06:12 - Constitutional Appears: No Acute Distress, Chronically Ill - Head Exam Head Exam: ATRAUMATIC, NORMAL INSPECTION - Eye Exam Eye Exam: EOMI, Normal appearance - Neck Exam Neck Exam: Normal Inspection. absent: Tenderness - Respiratory Exam Respiratory Exam: Clear to Ausculation Bilateral, NORMAL BREATHING PATTERN - GI/Abdominal Exam GI & Abdominal Exam: Soft. absent: Tenderness - Extremities Exam Extremities Exam: Normal Inspection. absent: Tenderness - Neurological Exam Neurological Exam: Altered, CN II-XII Intact - Skin Skin Exam: Dry, Warm Assessment and Plan (1) Acute on chronic renal failure Status: Resolved (2) CAD (coronary artery disease) Status: Chronic (3) CHF exacerbation Status: Chronic (4) Type 2 diabetes mellitus with diabetic nephropathy Status: Acute (5) Cardiorenal disease Status: Acute (6) ESRD (end stage renal disease) Status: Acute - Assessment and Plan (Free Text) Plan: Dialysis MWF Moderate UF Increase phoslo dose
--- NOTE | 2017-09-21 17:36 | CP.PCM.PN ---
<Uzma Sun DO - Last Filed: 09/21/17 17:33> Subjective - Date & Time of Evaluation Date of Evaluation: 09/21/17 Time of Evaluation: 09:50 - Subjective Subjective: Cardiology progress note for Dr. Cortés Patient seen and examined. Patient nonverbal, observed to be restless during HD session. No acute events per nursing. Objective - Vital Signs/Intake and Output Vital Signs (last 24 hours): Temp Pulse Resp BP Pulse Ox 99 F 100 H 14 120/45 L 100 09/21/17 12:14 09/21/17 15:24 09/21/17 15:24 09/21/17 15:24 09/21/17 15:24 Intake and Output: 09/21/17 09/21/17 06:59 18:59 Intake Total 600 400 Output Total 0 0 Balance 600 400 - Medications Medications: Current Medications Acetylcysteine (Acetylcysteine 20%) 4 ml INH RQ6 [facility] Last Admin: 09/21/17 14:25 Dose: 4 ml Albuterol/Ipratropium (Duoneb 3 Mg/0.5 Mg (3 Ml) Ud) 3 ml INH RQ6 [facility] Last Admin: 09/21/17 14:25 Dose: 3 ml Apixaban (Eliquis) 2.5 mg PO BID [facility] Last Admin: 09/21/17 10:37 Dose: 2.5 mg Aspirin (Aspirin Chewable) 81 mg PO DAILY [facility] Last Admin: 09/21/17 10:37 Dose: 81 mg Calcium Acetate (Phoslo) 1,334 mg GT TID [facility] Last Admin: 09/21/17 13:14 Dose: 1,334 mg Epoetin Chencho (Procrit) 10,000 unit IV MWF [facility] Last Admin: 09/21/17 10:14 Dose: 10,000 unit Famotidine (Pepcid) 20 mg PO DAILY [facility] Last Admin: 09/21/17 10:37 Dose: 20 mg Fluconazole (Diflucan) 200 mg PO DAILY [facility] Last Admin: 09/21/17 10:41 Dose: 200 mg Heparin Sodium (Porcine) (Heparin) 3,700 units IVP TTS [facility] Stop: 10/07/17 23:59 Last Admin: 09/21/17 10:14 Dose: 3,700 units Tigecycline 50 mg/ Sodium (Chloride) 100 mls @ 100 mls/hr IVPB Q12H [facility] Last Admin: 09/21/17 13:00 Dose: 100 mls/hr Insulin Aspart (Novolog) 0 unit SC Q6 [facility] PRN Reason: Protocol Last Admin: 09/21/17 13:14 Dose: 2 unit Insulin Detemir (Levemir) 43 unit SC Q12 [facility] Last Admin: 09/21/17 10:38 Dose: 43 unit Lactobacillus Acidophilus (Bacid Acidophilus) 1 cap PO BID [facility] Last Admin: 09/21/17 10:37 Dose: 1 cap Metoprolol Tartrate (Lopressor) 50 mg PO BID [facility] Last Admin: 09/21/17 10:39 Dose: Not Given Rosuvastatin Calcium (Crestor) 10 mg PO HS [facility] Last Admin: 08/26/17 22:41 Dose: 10 mg - Labs Labs: 09/20/17 06:04 09/20/17 06:04 PT 13.9 SECONDS (9.7-12.2) H 08/24/17 06:08 INR 1.2 08/24/17 06:08 APTT 55 SECONDS (21-34) H D 08/17/17 06:12 - Constitutional Appears: No Acute Distress - Head Exam Head Exam: ATRAUMATIC, NORMOCEPHALIC - Eye Exam Eye Exam: EOMI - ENT Exam ENT Exam: Mucous Membranes Moist - Neck Exam Additional comments: trach collar - Respiratory Exam Respiratory Exam: Clear to Ausculation Bilateral, NORMAL BREATHING PATTERN. absent: Respiratory Distress - Cardiovascular Exam Cardiovascular Exam: Tachycardia, +S1, +S2 - GI/Abdominal Exam GI & Abdominal Exam: Soft, Normal Bowel Sounds Additional comments: PEG in place - Extremities Exam Extremities Exam: Normal Inspection - Neurological Exam Neurological Exam: Alert, Awake - Skin Skin Exam: Warm Assessment and Plan - Assessment and Plan (Free Text) Assessment: Patient is a 77 year old male with PMHx significant for CAD with prior stent placement, HTN, HLD, DM 2, CKD, Anemia, permanent pacemaker, prior DVT and chronic lower extremity edema presents with complaints of chest pain and shortness of breath with ambulation (08/06/17). Patient was admitted to ICU on from hospital floors due to code blue as patient was enroute to CT scan. Patient is currently with a tracheostomy due to respiratory distress secondary to cardiac arrest. Patient currently telemetry status. Atrial Fibrillation Intermittent Rate controlled. On Metoprolol 50 mg PO BID, Eliquis 2.5 mg PO BID CAD, chest pain -No current plans for cardiac cath (acute respiratory failure and elevated Cr) , history of abnormal stress test, continue medical management -Elevated Troponin likely due to chest compressions during cardiac arrest 08/10 -No acute ST changes on EKG -Continue ASA, Crestor, Metoprolol. -Echocardiogram from 08/08/17 showed left ventricle systolic function is severely impaired. EF: 25-30%; global hypokinesis of LV mild AR. MR is moderate. Moderate-severe pulmonary hypertension Chronic Systolic CHF s/p AICD -CXR 09/20: left-sided pacemaker, moderate venous congestion, left basilar opacity with small left pleural effusion, cardiomegaly. no significant interval change -BNP [id number] on 08/06/17 -Continue ASA, Crestor, Metoprolol -Echocardiogram from 08/08/17 showed left ventricle systolic function is severely impaired. EF: 25-30%; global hypokinesis of LV mild AR. MR is moderate. Moderate-severe pulmonary hypertesnion Dobutamine discontinued in light of atrial flutter-type episodes Sacral ulcer pt s/p debridement continue sacral wound dressing changes continue antibiotics micro: gram positive cocci Leukocytosis continue antibiotics as per primary team for ulcer and UTI Renal failure continue HD as per nephrology team Patient pending NH placement Plan as per Dr. Cortés <Sina Cortés - Last Filed: 09/21/17 23:33> Objective - Vital Signs/Intake and Output Vital Signs (last 24 hours): Temp Pulse Resp BP Pulse Ox 98.7 F 88 12 106/41 L 97 09/21/17 16:00 09/21/17 19:24 09/21/17 19:24 09/21/17 19:24 09/21/17 19:24 Intake and Output: 09/21/17 09/22/17 18:59 06:59 Intake Total 400 Output Total 0 Balance 400 - Medications Medications: Current Medications Acetylcysteine (Acetylcysteine 20%) 4 ml INH RQ6 [facility] Last Admin: 09/21/17 20:00 Dose: 4 ml Albuterol/Ipratropium (Duoneb 3 Mg/0.5 Mg (3 Ml) Ud) 3 ml INH RQ6 [facility] Last Admin: 09/21/17 20:00 Dose: 3 ml Apixaban (Eliquis) 2.5 mg PO BID [facility] Last Admin: 09/21/17 17:42 Dose: 2.5 mg Aspirin (Aspirin Chewable) 81 mg PO DAILY [facility] Last Admin: 09/21/17 10:37 Dose: 81 mg Calcium Acetate (Phoslo) 1,334 mg GT TID [facility] Last Admin: 09/21/17 17:43 Dose: 1,334 mg Epoetin Chen[place] (Procrit) 10,000 unit IV MWF [facility] Last Admin: 09/21/17 10:14 Dose: 10,000 unit Famotidine (Pepcid) 20 mg PO DAILY [facility] Last Admin: 09/21/17 10:37 Dose: 20 mg Fluconazole (Diflucan) 200 mg PO DAILY [facility] Last Admin: 09/21/17 10:41 Dose: 200 mg Heparin Sodium (Porcine) (Heparin) 3,700 units IVP TTS [facility] Stop: 10/07/17 23:59 Last Admin: 09/21/17 10:14 Dose: 3,700 units Tigecycline 50 mg/ Sodium (Chloride) 100 mls @ 100 mls/hr IVPB Q12H [facility] Last Admin: 09/21/17 13:00 Dose: 100 mls/hr Insulin Aspart (Novolog) 0 unit SC Q6 [facility] PRN Reason: Protocol Last Admin: 09/21/17 17:43 Dose: Not Given Insulin Detemir (Levemir) 43 unit SC Q12 [facility] Last Admin: 09/21/17 10:38 Dose: 43 unit Lactobacillus Acidophilus (Bacid Acidophilus) 1 cap PO BID [facility] Last Admin: 09/21/17 17:43 Dose: 1 cap Metoprolol Tartrate (Lopressor) 50 mg PO BID [facility] Last Admin: 09/21/17 17:42 Dose: 50 mg Rosuvastatin Calcium (Crestor) 10 mg PO HS [facility] Last Admin: 08/26/17 22:41 Dose: 10 mg - Labs Labs: 09/20/17 06:04 09/21/17 21:45 PT 13.9 SECONDS (9.7-12.2) H 08/24/17 06:08 INR 1.2 08/24/17 06:08 APTT 55 SECONDS (21-34) H D 08/17/17 06:12 Assessment and Plan - Assessment and Plan (Free Text) Assessment: Patient seen and evaluated with the medical hospital sales Plan of care as documented
--- NOTE | 2017-09-21 21:50 | CP.PCM.PN ---
Subjective - Date & Time of Evaluation Date of Evaluation: 09/21/17 Time of Evaluation: 05:25 - Subjective Subjective: dictated Objective - Vital Signs/Intake and Output Vital Signs (last 24 hours): Temp Pulse Resp BP Pulse Ox 98.7 F 88 12 106/41 L 97 09/21/17 16:00 09/21/17 19:24 09/21/17 19:24 09/21/17 19:24 09/21/17 19:24 Intake and Output: 09/21/17 09/22/17 18:59 06:59 Intake Total 400 Output Total 0 Balance 400 - Medications Medications: Current Medications Acetylcysteine (Acetylcysteine 20%) 4 ml INH RQ6 [facility] Last Admin: 09/21/17 20:00 Dose: 4 ml Albuterol/Ipratropium (Duoneb 3 Mg/0.5 Mg (3 Ml) Ud) 3 ml INH RQ6 [facility] Last Admin: 09/21/17 20:00 Dose: 3 ml Apixaban (Eliquis) 2.5 mg PO BID [facility] Last Admin: 09/21/17 17:42 Dose: 2.5 mg Aspirin (Aspirin Chewable) 81 mg PO DAILY [facility] Last Admin: 09/21/17 10:37 Dose: 81 mg Calcium Acetate (Phoslo) 1,334 mg GT TID [facility] Last Admin: 09/21/17 17:43 Dose: 1,334 mg Epoetin Chencho (Procrit) 10,000 unit IV MWF [facility] Last Admin: 09/21/17 10:14 Dose: 10,000 unit Famotidine (Pepcid) 20 mg PO DAILY [facility] Last Admin: 09/21/17 10:37 Dose: 20 mg Fluconazole (Diflucan) 200 mg PO DAILY [facility] Last Admin: 09/21/17 10:41 Dose: 200 mg Heparin Sodium (Porcine) (Heparin) 3,700 units IVP TTS [facility] Stop: 10/07/17 23:59 Last Admin: 09/21/17 10:14 Dose: 3,700 units Tigecycline 50 mg/ Sodium (Chloride) 100 mls @ 100 mls/hr IVPB Q12H [facility] Last Admin: 09/21/17 13:00 Dose: 100 mls/hr Insulin Aspart (Novolog) 0 unit SC Q6 [facility] PRN Reason: Protocol Last Admin: 09/21/17 17:43 Dose: Not Given Insulin Detemir (Levemir) 43 unit SC Q12 [facility] Last Admin: 09/21/17 10:38 Dose: 43 unit Lactobacillus Acidophilus (Bacid Acidophilus) 1 cap PO BID [facility] Last Admin: 09/21/17 17:43 Dose: 1 cap Metoprolol Tartrate (Lopressor) 50 mg PO BID [facility] Last Admin: 09/21/17 17:42 Dose: 50 mg Rosuvastatin Calcium (Crestor) 10 mg PO HS [facility] Last Admin: 08/26/17 22:41 Dose: 10 mg - Labs Labs: 09/20/17 06:04 09/20/17 06:04 PT 13.9 SECONDS (9.7-12.2) H 08/24/17 06:08 INR 1.2 08/24/17 06:08 APTT 55 SECONDS (21-34) H D 08/17/17 06:12
[2017-09-21 22:02] LABS: POTASSIUM 4.1 mmol/L (3.6-5.2)
[2017-09-21 22:04] LABS: ALB/GLOB RATIO 0.8 (1.0-2.1); BILIRUBIN,TOTAL 0.6 mg/dL (0.2-1.3); TOTAL PROTEIN 5.7 g/dL (6.3-8.3)
[2017-09-21 22:05] LABS: MAGNESIUM 2.2 mg/dL (1.6-2.3); PHOSPHOROUS 4.5 mg/dL (2.5-4.5)
[2017-09-22] MEDS: Acetylcysteine 20% Inhal Soln (4ml) INH SCH ×4 (01:43→20:29)
[2017-09-22] MEDS: Albuterol-Ipratrop 3 mg / 0.5 (3 ml) UD INH SCH ×4 (01:43→20:29)
[2017-09-22 06:37] LABS: BASO # 0.1 K/uL (0.0-0.2); BASO % 0.8 % (0.0-2.0); EOS # 0.4 K/uL (0.0-0.7); EOS % 3.2 % (0.0-4.0); HEMATOCRIT 31.4 % (35.0-51.0); LYMPH # 2.4 K/uL (1.0-4.3); LYMPH % 17.5 % (20.0-40.0); MEAN CELL VOLUME 78.7 fL (80.0-94.0); MEAN CORPUSCULAR HGB CONC 31.8 g/dL (33.0-37.0); MEAN PLATELET VOLUME 8.1 fL (7.2-11.7); MONO # 0.9 K/uL (0.0-0.8); MONO % 6.5 % (0.0-10.0); NRBC % 0.1 % (0.0-2.0); RED CELL DISTRIBUTION WIDTH 24.9 % (11.5-14.5); WHITE BLOOD COUNT 13.7 K/uL (4.8-10.8)
[2017-09-22] MEDS: (Novolog) Insulin Aspart, Recombinant 100 u/ml 10 ml vial SC SCH ×4 (06:37→18:23)
[2017-09-22 06:39] LABS: POTASSIUM 4.7 mmol/L (3.6-5.2)
[2017-09-22 06:41] LABS: ALB/GLOB RATIO 0.7 (1.0-2.1); BILIRUBIN,TOTAL 0.8 mg/dL (0.2-1.3); CALCIUM 8.3 mg/dl (8.6-10.4); PHOSPHOROUS 5.4 mg/dL (2.5-4.5)
[2017-09-22 06:42] LABS: MAGNESIUM 2.4 mg/dL (1.6-2.3)
--- NOTE | 2017-09-22 08:10 | PN ---
DATE: INFECTIOUS DISEASE FOLLOWUP SUBJECTIVE: PHYSICAL EXAMINATION VITAL SIGNS: T-max is 98.5, heart rate is 102, blood pressure is 120/45. GENERAL: The patient is more awake. He has a trach. NECK: Supple. LUNGS: Clear. No crackles or rales. HEART: S1, S2, remains tachy. ABDOMEN: Soft, nontender. No guarding. No rigidity present. He has a sacral decubitus, also has dialysis catheter on the right side. EXTREMITIES: Foot protectors present. LABORATORY DATA: Lab show white count still remains elevated at 15.8, which is on 09/20/2017. Hemoglobin of 9, hematocrit is 28.9, platelet count is 409. PLAN: He is on Tygacil and Diflucan. On 09/13/2017 Diflucan was started and Tygacil was started on 09/19/2017. We will continue Tygacil and Diflucan at this time and will monitor and he needs position change and remains at end-stage renal disease, status post cardiopulmonary arrest, also had Streptococcal pneumonia and status post respiratory failure and status post tracheostomy and PEG. Allan Lawrence MD
--- NOTE | 2017-09-22 08:32 | CP.PCM.PN ---
Subjective - Date & Time of Evaluation Date of Evaluation: 09/22/17 Time of Evaluation: 08:00 - Subjective Subjective: Pulmonology Note for Dr. Mena's Service Patient was seen and examined at bedside. Currently not on pressors. Tracheostomy changed to fenestrated one. Status post debridement, continued antibiotics. ROS unattainable. Objective - Vital Signs/Intake and Output Vital Signs (last 24 hours): Temp Pulse Resp BP Pulse Ox 98.8 F 84 24 134/61 100 09/22/17 04:00 09/22/17 06:00 09/22/17 06:00 09/22/17 05:39 09/22/17 06:00 Intake and Output: 09/22/17 09/22/17 06:59 18:59 Intake Total 0 Output Total 0 Balance 0 - Medications Medications: Current Medications Acetylcysteine (Acetylcysteine 20%) 4 ml INH RQ6 [facility] Last Admin: 09/22/17 07:52 Dose: 4 ml Albuterol/Ipratropium (Duoneb 3 Mg/0.5 Mg (3 Ml) Ud) 3 ml INH RQ6 [facility] Last Admin: 09/22/17 07:52 Dose: 3 ml Apixaban (Eliquis) 2.5 mg PO BID [facility] Last Admin: 09/21/17 17:42 Dose: 2.5 mg Aspirin (Aspirin Chewable) 81 mg PO DAILY [facility] Last Admin: 09/21/17 10:37 Dose: 81 mg Calcium Acetate (Phoslo) 1,334 mg GT TID [facility] Last Admin: 09/21/17 17:43 Dose: 1,334 mg Epoetin Chencho (Procrit) 10,000 unit IV MWF [facility] Last Admin: 09/21/17 10:14 Dose: 10,000 unit Famotidine (Pepcid) 20 mg PO DAILY [facility] Last Admin: 09/21/17 10:37 Dose: 20 mg Fluconazole (Diflucan) 200 mg PO DAILY [facility] Last Admin: 09/21/17 10:41 Dose: 200 mg Heparin Sodium (Porcine) (Heparin) 3,700 units IVP TTS [facility] Stop: 10/07/17 23:59 Last Admin: 09/21/17 10:14 Dose: 3,700 units Tigecycline 50 mg/ Sodium (Chloride) 100 mls @ 100 mls/hr IVPB Q12H [facility] Last Admin: 09/21/17 23:54 Dose: 100 mls/hr Insulin Aspart (Novolog) 0 unit SC Q6 [facility] PRN Reason: Protocol Last Admin: 09/22/17 06:37 Dose: 2 unit Insulin Detemir (Levemir) 43 unit SC Q12 [facility] Last Admin: 09/21/17 22:00 Dose: Not Given Lactobacillus Acidophilus (Bacid Acidophilus) 1 cap PO BID [facility] Last Admin: 09/21/17 17:43 Dose: 1 cap Metoprolol Tartrate (Lopressor) 50 mg PO BID [facility] Last Admin: 09/21/17 17:42 Dose: 50 mg Rosuvastatin Calcium (Crestor) 10 mg PO HS [facility] Last Admin: 08/26/17 22:41 Dose: 10 mg - Labs Labs: 09/22/17 06:25 09/22/17 06:25 PT 13.9 SECONDS (9.7-12.2) H 08/24/17 06:08 INR 1.2 08/24/17 06:08 APTT 55 SECONDS (21-34) H D 08/17/17 06:12 - Additional Findings Additional findings: - Head Exam Head Exam: NORMAL INSPECTION - Eye Exam Eye Exam: could not evaluate EOM due to patient's current status Pupil Exam: round, equal, and reactive to light - Respiratory Exam Respiratory Exam: Decreased Breath Sounds bilateral lower lung buchanan but limited due to lack of patient participation Additional comments: Trach Collar - Cardiovascular Exam Cardiovascular Exam: REGULAR RHYTHM, +S1, +S2 - GI/Abdominal Exam GI & Abdominal Exam: Distended, Soft, BSx4 , could not palpate liver and spleen , PEG Tube Insertion Site LUQ without evidence of cellutlitis. absent: Firm, Guarding, Rigid, Tenderness, Rebound Additional comments: obese habitus, Peg Tube insertion site without signs of cellulitis - Extremities Exam Extremities Exam: Normal Capillary Refill, Pedal Edema. absent: Tenderness Additional comments: Prevalon boots b/l - Neurological Exam Additional comments: Could not be performed due to lack of patient participation - Skin Skin Exam: Sacral Ulcer S/P debridement with healthy tissue at base/ subcutaneous fat visible with few scattered black areas. Shallow Ulcer Left outer ear that is healed. Right heal blister without surrounding signs of cellulitis Assessment and Plan - Assessment and Plan (Free Text) Plan: Acute Respiratory Failure ARDS Cardiac Arrest Pulmonary Edema NSTEMI S/P Tracheostomy 08/22 S/P Peg tube placement 08/25 Currently on Acetylcysteine 20 % Neb Q6H and Duoneb Q6H Passy Flex Trach placed by [employer] CXR unchanged 09/20/17 Continue current management Acute on chronic renal failure CHF (congestive heart failure) CKD (chronic kidney disease) Pneumonia Diflucan and Tigecycline Q12 History of DVT (deep vein thrombosis) Sung Ventura Dr., DO, PGY-1
--- NOTE | 2017-09-22 09:29 | CP.PCM.PN ---
Subjective - Date & Time of Evaluation Date of Evaluation: 09/22/17 Time of Evaluation: 09:26 - Subjective Subjective: Stable dialysis 09/21- UF 1000ml Alert on trach collar BP stable now labs acceptable Objective - Vital Signs/Intake and Output Vital Signs (last 24 hours): Temp Pulse Resp BP Pulse Ox 98.8 F 84 24 134/61 100 09/22/17 04:00 09/22/17 06:00 09/22/17 06:00 09/22/17 05:39 09/22/17 06:00 Intake and Output: 09/22/17 09/22/17 06:59 18:59 Intake Total 0 Output Total 0 Balance 0 - Medications Medications: Current Medications Acetylcysteine (Acetylcysteine 20%) 4 ml INH RQ6 [facility] Last Admin: 09/22/17 07:52 Dose: 4 ml Albuterol/Ipratropium (Duoneb 3 Mg/0.5 Mg (3 Ml) Ud) 3 ml INH RQ6 [facility] Last Admin: 09/22/17 07:52 Dose: 3 ml Apixaban (Eliquis) 2.5 mg PO BID [facility] Last Admin: 09/21/17 17:42 Dose: 2.5 mg Aspirin (Aspirin Chewable) 81 mg PO DAILY [facility] Last Admin: 09/21/17 10:37 Dose: 81 mg Calcium Acetate (Phoslo) 1,334 mg GT TID [facility] Last Admin: 09/21/17 17:43 Dose: 1,334 mg Epoetin Chencho (Procrit) 10,000 unit IV MWF [facility] Last Admin: 09/21/17 10:14 Dose: 10,000 unit Famotidine (Pepcid) 20 mg PO DAILY [facility] Last Admin: 09/21/17 10:37 Dose: 20 mg Fluconazole (Diflucan) 200 mg PO DAILY [facility] Last Admin: 09/21/17 10:41 Dose: 200 mg Heparin Sodium (Porcine) (Heparin) 3,700 units IVP TTS [facility] Stop: 10/07/17 23:59 Last Admin: 09/21/17 10:14 Dose: 3,700 units Tigecycline 50 mg/ Sodium (Chloride) 100 mls @ 100 mls/hr IVPB Q12H [facility] Last Admin: 09/21/17 23:54 Dose: 100 mls/hr Insulin Aspart (Novolog) 0 unit SC Q6 [facility] PRN Reason: Protocol Last Admin: 09/22/17 06:37 Dose: 2 unit Insulin Detemir (Levemir) 43 unit SC Q12 [facility] Last Admin: 09/21/17 22:00 Dose: Not Given Lactobacillus Acidophilus (Bacid Acidophilus) 1 cap PO BID [facility] Last Admin: 09/21/17 17:43 Dose: 1 cap Metoprolol Tartrate (Lopressor) 50 mg PO BID [facility] Last Admin: 09/21/17 17:42 Dose: 50 mg Rosuvastatin Calcium (Crestor) 10 mg PO HS [facility] Last Admin: 08/26/17 22:41 Dose: 10 mg - Labs Labs: 09/22/17 06:25 09/22/17 06:25 PT 13.9 SECONDS (9.7-12.2) H 08/24/17 06:08 INR 1.2 08/24/17 06:08 APTT 55 SECONDS (21-34) H D 08/17/17 06:12 - Constitutional Appears: No Acute Distress, Chronically Ill - Head Exam Head Exam: ATRAUMATIC, NORMAL INSPECTION - Eye Exam Eye Exam: EOMI, Normal appearance - Neck Exam Neck Exam: Normal Inspection. absent: Tenderness - Respiratory Exam Respiratory Exam: Rales, NORMAL BREATHING PATTERN - Cardiovascular Exam Cardiovascular Exam: Tachycardia, +S1 - GI/Abdominal Exam GI & Abdominal Exam: Soft. absent: Tenderness - Extremities Exam Extremities Exam: Normal Inspection. absent: Tenderness - Neurological Exam Neurological Exam: Awake, Motor Sensory Deficit - Skin Skin Exam: Dry, Warm Assessment and Plan (1) Acute on chronic renal failure Status: Resolved (2) CAD (coronary artery disease) Status: Chronic (3) CHF exacerbation Status: Chronic (4) Type 2 diabetes mellitus with diabetic nephropathy Status: Acute (5) Cardiorenal disease Status: Acute (6) ESRD (end stage renal disease) Status: Acute - Assessment and Plan (Free Text) Plan: Maintain dialysis MWF Same meds Await LTC transfer
[2017-09-22] MEDS: Insulin Detemir 100 units/ml Vial (Levemir) SC SCH ×2 (10:00→22:00)
--- NOTE | 2017-09-22 10:35 | CP.PCM.PN ---
<Sina White - Last Filed: 09/22/17 15:26> Subjective - Date & Time of Evaluation Date of Evaluation: 09/22/17 Time of Evaluation: 10:34 - Subjective Subjective: Medicine Progress Note for Dr. Lazar HPI: Patient seen and examined at bedside. Resting comfortably in bed. Family at bedside. ROS unattainable. Objective - Vital Signs/Intake and Output Vital Signs (last 24 hours): Temp Pulse Resp BP Pulse Ox 98.8 F 84 24 134/61 100 09/22/17 04:00 09/22/17 06:00 09/22/17 06:00 09/22/17 05:39 09/22/17 06:00 Intake and Output: 09/22/17 09/22/17 06:59 18:59 Intake Total 0 Output Total 0 Balance 0 - Medications Medications: Current Medications Acetylcysteine (Acetylcysteine 20%) 4 ml INH RQ6 [facility] Last Admin: 09/22/17 07:52 Dose: 4 ml Albuterol/Ipratropium (Duoneb 3 Mg/0.5 Mg (3 Ml) Ud) 3 ml INH RQ6 [facility] Last Admin: 09/22/17 07:52 Dose: 3 ml Apixaban (Eliquis) 2.5 mg PO BID [facility] Last Admin: 09/21/17 17:42 Dose: 2.5 mg Aspirin (Aspirin Chewable) 81 mg PO DAILY [facility] Last Admin: 09/21/17 10:37 Dose: 81 mg Calcium Acetate (Phoslo) 1,334 mg GT TID [facility] Last Admin: 09/21/17 17:43 Dose: 1,334 mg Epoetin Chencho (Procrit) 10,000 unit IV MWF [facility] Last Admin: 09/21/17 10:14 Dose: 10,000 unit Famotidine (Pepcid) 20 mg PO DAILY [facility] Last Admin: 09/21/17 10:37 Dose: 20 mg Fluconazole (Diflucan) 200 mg PO DAILY [facility] Last Admin: 09/21/17 10:41 Dose: 200 mg Heparin Sodium (Porcine) (Heparin) 3,700 units IVP TTS [facility] Stop: 10/07/17 23:59 Last Admin: 09/21/17 10:14 Dose: 3,700 units Tigecycline 50 mg/ Sodium (Chloride) 100 mls @ 100 mls/hr IVPB Q12H [facility] Last Admin: 09/21/17 23:54 Dose: 100 mls/hr Insulin Aspart (Novolog) 0 unit SC Q6 [facility] PRN Reason: Protocol Last Admin: 09/22/17 06:37 Dose: 2 unit Insulin Detemir (Levemir) 43 unit SC Q12 [facility] Last Admin: 09/21/17 22:00 Dose: Not Given Lactobacillus Acidophilus (Bacid Acidophilus) 1 cap PO BID [facility] Last Admin: 09/21/17 17:43 Dose: 1 cap Metoprolol Tartrate (Lopressor) 50 mg PO BID [facility] Last Admin: 09/21/17 17:42 Dose: 50 mg Rosuvastatin Calcium (Crestor) 10 mg PO HS [facility] Last Admin: 08/26/17 22:41 Dose: 10 mg - Labs Labs: 09/22/17 06:25 09/22/17 06:25 PT 13.9 SECONDS (9.7-12.2) H 08/24/17 06:08 INR 1.2 08/24/17 06:08 APTT 55 SECONDS (21-34) H D 08/17/17 06:12 - Additional Findings Additional findings: - Constitutional Appears: Chronically Ill - Head Exam Head Exam: ATRAUMATIC, NORMAL INSPECTION, NORMOCEPHALIC - ENT Exam ENT Exam: Mucous Membranes Moist - Neck Exam Additional comments: trach - Respiratory Exam Respiratory Exam: Clear to Ausculation Bilateral, NORMAL BREATHING PATTERN - GI/Abdominal Exam GI & Abdominal Exam: Soft, Normal Bowel Sounds. absent: Distended, Tenderness - Extremities Exam Extremities Exam: absent: Joint Swelling, Tenderness - Back Exam Additional comments: 10x10 sacral decub stage 3 clean moist base, no necrotic tissue. Dressing changed with optifoam/medihoney. - Neurological Exam Neurological Exam: Alert, Awake - Skin Skin Exam: Dry, Normal Color, Warm. absent: Intact Assessment and Plan - Assessment and Plan (Free Text) Assessment: (1) Acute Respiratory Failure ARDS Cardiac Arrest Pulmonary Edema Nonstemi Assessment and Plan: * Code Blue on 08/10: asystole, cardiopulmonary resuscitative measures initiated , requiring 3 epis, bicarbonate, ROSC achieved and intubated and brought to the ICU for further management; Patient in the ICU from 08/10 until present. * Pulmonary: Dr Mena (Dr. Jeffers covering until 09/04/17)-->help appreciated * Cardiology: Dr. Cortés on board-->help appreciated * GI (Dr. Wills) on board-->help appreciated * S/P Tracheostomy 08/22 * S/P Peg tube placement 08/25 * s/p insertion of right posterior chest tube 08/19-->removed 08/24/17 * There was consideration for possible thoracentesis of left side pleural effusion, evaluated by IR, there is no fluid to drain per Dr. Gross * Chest xray (08/26): right arm PICC is seen with the tip of distal subclavian vein. PICC may be used * Per cardiology, * Restart Aspirin 81mg PO daily * Patient does not need Plavix at this time * Recommend for Eliquis 2.5mg PO BID for atrial flutter * 08/27: patient is pending LTAC, he went eventually need cardiac catheterization when he has stabilized. Held statin secondary to elevated LFTs. Discussed with Dr. Cortés, lowered Amiodarone 200mg PO daily * 08/28: patient is pending LTAC, he went eventually need cardiac catheterization when he has stabilized. Liver function tests improving * 08/29: Train Electronic Technician Nehal has sent request to insurance for authorization for LTAC-->pending * 09/06: pending social work/case management approval for LTAC * 09/07: pending social work/case management approval for LTAC * 09/08: Unable to get approval for LTAC; pending other options * 09/09: Transferred from step-down ICU to the floors * 09/13: Trasnferred back to ICU S/P Rapid Response for low blood pressure * 09/14: Currently on Acetylcysteine 20 % Neb Q6H and Duoneb Q6H * 09/15: [place] Trach placed by [facility] (2) Abnormal Stress Test History of AICD History of Coronary Artery Disease Assessment and Plan: * Cardiology (Dr. Cortés) on board-->help appreciated * TSH: 1.16; T4: 1.53 * Echocardiogram (08/08/17): left ventricle systolic function is severely impaired. EF: 25-30%; global hypokinesis of left ventricle mild aortic regurgitation. Mitral regurgitation is moderate. Moderate-severe pulmonary hypertension * Plan was for cardiac catheterization; delayed due to acute renal failure; Attempted gentle hydration and mucomyst on 08/09 to optimize prior to cath * On 08/10, patient was in asystole, ACLS protocol, ROSC achieved, intubated and transfered to the ICU. Patient in acute pulmonary edema. * Patient hospitalized in the ICU since 08/10/17 to present. * Medications: * Aspirin 81mg PO daily * Plavix d/c by cardiology * Lopressor 50mg PO bid * d/c Crestor 10mg POqHS secondary to rise in LFTS 08/27--->monitor LFTs daily * ARB d/c secondary to acute renal failure * 08/27: patient is pending LTAC, he went eventually need cardiac catheterization when he has stabilized. Held statin secondary to elevated LFTs. Discussed with Dr. Cortés, lowered Amiodarone 200mg PO daily * 08/28: He will eventually need cardiac catheterization when he has stabilized. Liver function tests improving. Statin is on hold (3) Atrial flutter Assessment and Plan: * Cardiology (Dr. Cortés) on board-->help appreciated * Refractory to Lopressor/Cardizem IVP * Eliquis 2.5mg PO bid * Amiodarone bolus-->Amiodarine drip on 08/24-->converted to Amiodarone 200mg PO TID on 08/26 and this was decreased to 200 mg 1x/day due to increased LFTs * 08/27: Discussed with Dr. Cortés, will lower Amiodarone 200mg PO daily and monitor LFTs. Statin held and tylenol d/c * 08/29: patient is pending LTAC, he will eventually need cardiac catheterization when he has stabilized. Liver function tests improving. Statin is on hold due to the elevated LFTs * 08/30: Cardiology discontinued the Amiodarone * 09/07: Held eliquis; will need to resume * 09/09: Eliquis resumed, off Amiodarone Status: Acute (4) Acute on Chronic Systolic CHF exacerbation Assessment and Plan: * Cardiology (Dr. Cortés) on board-->help appreciated * Transferred to the ICU on 08/10 following cardiac arrest and intubation. * Echocardiogram (08/08/17): left ventricular systolic function is severely impaired. EF: 25-30%; global hypokinesis of left ventricle mild aortic regurgitation. Mitral regurgitation is moderate. Moderate-severe pulmonary hypertension * Medications: * Aspirin 81mg PO daily * Plavix d/c by cardiology * Lopressor 50mg PO bid * d/c Crestor 10mg POqHS on 08/27 secondary to rise in LFTs * ARB d/c secondary to acute renal failure Status: Acute (5) Leukocytosis Assessment and Plan: * Patient's white count downtrending * Pleural Fluid 08/19/17 did not show any growth * Blood cultures (08/26): no growth X5 days * UA and urine culture (08/27): Urine Culture showed Yeast Species. * Patient has elevated LFTs-->did not start anti-fungal in light of LFTs New: * 09/05/17 Blood: gram positive cocci-->pending speciation * 09/05/17 Blood: no growth after 4 days * 09/07/17 Legionella Culture: negative * 09/07/17 Mycobacteria: negative * 09/07/17 Sputum: Enterocloace Bacter; yeast * 09/07/17 Blood: negative X 48 hours * 09/07/17 Blood: negative X 48 hours * 09/06: stool culture pending; has not had diarrhea or bowel movement * 09/07: Dr. Zimmer (covering Dr. Lawrence) to see the patient given elevated procalcitonin * Blood Culture 09/13/17 is negative to date and Urine Culture 09/13/17 showed Yeast Species * 09/14: Could this be secondary to the Septic Shock? Secondary to Osteomyelitis of the Sacrum? 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) and Meropenem 500 mg IV Q8H (09/13/17 through 09/16/17), Diflucan 200 mg PO 1x/day (09/13/17), Bactrim 10 mL PO Q12H (09/12/17 through 09/16/17), Tigecycline 50 mg IV Q12H (09/16/17 started because of VRE on Sacrum Wound Culture 09/14/17) * ESR 09/14/17 elevated at 89 * Bone Scan performed 09/17/17 to check for Osteomyelitis at the Sacrum: results are pending * Meropenem 500 mg IV Q12H (09/13/17 through 09/16/17: which will cover the Enterbacter in the Sputum 09/07/17 and the possibility of Sacral Osteomyelitis) * Antibiotics as of 09/17/17:Tigecycline (09/16/17: which will cover the VRE in Sacral Wound Culture 09/14/17 and the possibility of Sacral Osteomyelitis) and Diflucan 200 mg PO 1x/day (09/13/17: which will cover with Yeast in the Sputum, Urine, and Sacral Wound Culture) Status: Acute (6) Pneumonia Assessment and Plan: * Pulmonary (Dr. Mena) on board-->help appreciated; Dr. Jeffers covering while Dr. Mean away * Infectious Disease (Dr. Lawrence)-->help appreciated * Chest xray (08/26): right arm PICC is seen with the tip of distal subclavian vein. PICC may be used * Rapid A strep, Influenza A and B studies, Urine Legionella, Mycoplasma studies = Negative * Florastor 250mg PO bid * 08/07/17: +Strep Pneumoniae in the urine * Meropenem 500mg IV Q 8 hours (08/14/17 through 08/18/17) and Zosyn 2.25 mg IV Q6H (08/13/17 through 08/18/17) * Cefepime 1 gm IV Q24H: started on 08/19/17 and was discontinued by ID Dr. Lawrence on 08/30/17: monitor vitals and labs * s/p right posterior chest tube 08/19-08/24 * Sputum Culture 08/19/17 shows No growth * Pleural fluid 08/19/17: No growth * 09/07/17 Sputum: Enterocloace Bacter and Yeast Species: See Antibiotic treatment in previous Assessment and Plan * Sputum 09/10/17 shows NO AFB Status: Acute (7) HTN (hypertension) Assessment and Plan: * Lopressor 50mg PO bid * Lisinopril 5mg PO daily Status: Chronic (8) CKD (chronic kidney disease) on Dialysis Assessment and Plan: * Dr. Miranda (nephrology) consulted on the case * Hx of CKD-->Started on dialysis 08/15/17 * Kurtis catheter placed and removed 08/22 * s/p Right Chest Permcath 08/22 * Patient is on dialysis -W-; oliguric * Phoslo 1334mg GT TID * Epoetin 10,000 unit IV MWF Status: Acute (9) Diabetes mellitus Assessment and Plan: * Accuchecks Q6H * HgbA1c 8.4 * Started peg feedings on 08/26/17 * Nepro-->50 ml/hour but this was held 09/13/17 due suspicion of Bowel Obstruction as NO bowel Movement since 09/07/17. This was restarted on after NO obstruction was observed on Obstruction Series 09/13/17 and after multiple bowel movement s/p Fleet Enema 09/13/17 (10) HLD (hyperlipidemia) Assessment and Plan: * 08/27: held Crestor 10 mg PO HS secondary to rise in LFTs * 08/29: Liver function tests improving; waiting to restart statin Status: Chronic (11) Anemia Assessment and Plan: * Heme-oncology (Dr. Giles bender) on board-->help appreciated * Likely iron deficiency anemia based on prior admissions * Ferritin 27.4, Iron 22, TIBC 322, % Saturation 7 * Ferric Sodium Gluconate 125mg IVPB daily (active 08/08-08/16) * Procrit 10,000 units - * Monitor Hgb/Hct: stable Status: Chronic (12) History of DVT (deep vein thrombosis) Assessment and Plan: * Patient was previously on Eliquis for a prior history of DVT. * Repeat dopplers 08/09/17 are negative for DVT * Off Heparin Drip 08/17/17 * Started Eliquis 2.5mg PO BID for atrial flutter and history of DVT Status: Chronic (13) UTI Assessment and Plan: * Infectious disease (Dr. Lawrence) on board-->help appreciated * Exchange jaquez out and repeat urine cultures * Urine Culture 08/12/17 showed Gram Negative Rods: NO identification and NO sensitivities were performed * Meropenem 500mg IV Q 12hours (active since 08/14/17 through 08/18/17) to cover for UTI per ID * Repeat Urine Culture 08/18/17 shows NO growth * 08/25: reculture in light of leukocytosis * 08/27: pending urine studies * 08/30: Urine Culture 08/27/17 showed Yeast Species but no antifungal at that time secondary to recent history of Elevated LFTs * Urine Culture 09/13/17 showed Yeast Species: he is on Diflucan Status: Chronic (14) Confusion; Alzheimer's Dementia Assessment and Plan: * Per daughter, patient has been getting bouts of confusion over the past year but appears at baseline. Patient has not seen formal neurology as outpatient per daughter. Per , prior to event, noted Alzheimers' disease dx one year ago * CT head w/o contrast (08/10/17):acute os subacute lacune infarct is not excluded in the left basal ganglia inferiorly with definitive chronic lacune identified in the right basal ganglia superiorly. No acute or subacute lobar brain infarction is appreciable by standard CT criteria. Mild age-related neuro degenerative changes are identifed. No acute intracranial hemorrhage or mass is identified throughout * 08/26: Off Sedation-->patient moves all extremities randomly but does not follow directions * 08/27: off sedation-->patient is very calm, smiles at his * 08/28: off sedation-->patient is very calm Status: Chronic (15) Unstageable Sacral Ulcer, Left Ear Auricle Ulcer, Right Heal Ulcer Assessment and Plan: * Wound care on board * WOUND CARE NOTE (08/26)-->Pt with a sacral unstageable being treated with medihoney. No changes to dimensions at this time. Also, pt favoring Left side of head and has developed a 1x1 serous filled blister on his left ear. Primary nurse placed duoderm on the ear. Wound care nurse left duoderm in place , and recommends leaving it on until it falls off on its own. Pt has been NPO for several days, new peg inserted yesterday. Will be starting glucerna tube feedings later today. Albumin 3.3 * Turn q 2 hours * medihoney on unstageable ulcer * duoderm on left ear aurical ulcer: this is healed as of 09/15/17 * Prevalon Boots for Right Heal Blister 09/13/17 * 09/02/17: examined with Wound Care Nurse Emeka Samuel and periphery of the Sacral Wound is pink with some bleeding however center is still black and therefore still unstageable. Continue spray with Cavelon followed by thick coating with MediHoney followed by covering with OptiFoam once a day. * 09/03/17: Change of sacral ulcer dressing was performed by me with assitance from Nurse Lyman * 09/04/17: 09/03/17: Change of sacral ulcer dressing was performed by me with assistance from ALEXANDRA Unger * Per wound care note (09/07): sacral ulcer is stable per wound care nurse * 09/14/17: Sacral Ulcer is unstageable and area of blackness fills entire circumference. General Surgery consult placed to see if debridement is necessary. Continue Cavelon [place] followed by paulina thick coating of MediHoney followed by covering with OptiFoam. * 09/15/17: Surgery Team debrided Sacral Ulcer and Bone Scan will need to be followed up which was performed 09/17/17 * 09/18/17: With the help of Nurse Guzman, applied Cavelon [place] followed by thick coating of MediHoney followed by covering with OptiFoam * 09/19/17: Dressing for Sacral Ulcer already changed before my exam. Explained to Nurse Guzman that best application of MediHoney would be to cover the padding of the OptiFoam with it and then apply the OptiFoam to the ulcer. Status: Acute (16) Elevated LFTs Assessment and Plan: * 08/27: Yina * Discussed with cardiology-->changed amiodarone 200mg PO tid to amiodaron 200mg PO daily * D/C tylenol * Held Statin * patient is also on Rocephin to cover for pneumonia * Will not start antifungal * 08/29: starting to down trending since change in amiodarone dose; awaiting to restart statin * 08/30: continues to trend down. Amiodarone was discontinued * 09/01: AST, ALT, Alk Phos still elevated but stable * 09/02: AST, ALT, Alk Phos still elevated but stable * 09/03: LFTs stable * 09/04: LFTs stable Status: Acute (17). Hx Constipation * Monitor bowel movement * Multiple bowel movements on 09/13/17 and 09/14/17 that are well formed s/p Fleet Enema on 09/13/17 * 09/15/17: NO bowel movement * 09/16/17: Soft pasty bowel movement * 09/17/17: Soft pasty bowel movement * 09/18/17: NO bowel movement * 09/19/17: ordered one dose of Lactulose 20 gm via PEG as still no bowel movement (18). Hyponatremia * 09/19/17: at 127 monitor for now (19). Prophylactic measure Assessment and Plan: * Pepcid 20mg PO daily * Start Eliquis 2.5mg PO BID * s/p peg placement 08/25 * s/p trachesostomy 08/22 * s/p Permcath placement 08/22 removal Kurtis catheter * s/p right posterior chest tube 08/19-->removed 08/24 * s/p Right Arm PICC 08/26 * (Jovita Serrano): -->number provided to the nurse- ->consented for peg placement; discussed about LTAC 08/26 * Spoke with Dr. Pickard, PMD regarding patient's hospitalization up until this point 08/2609/01/17: Dr. Cullen Barth spoke with the patient's [place] with the assistance of Nurse Campos on 3 tower (as multiple attempts of using [employer] indicated that all of the German translators were busy) and explained all of the patient's diagnosises. 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 Her ultimate wish is to take patient to [facility] where their children live. I explained to patient that I would not know how that would be coordinated but that the Social Workers/Brake Engineer at LTAC may be of assistance in this regard. I also informed her that I am not aware of any insurance company that would finance this request. She understands that the patient is awaiting insurance approval for LTAC. 09/01/17 and 09/02/17: Dr. Cullen Barth spoke with Ore Miner Demetria and we are still awaiting insurance authorization for LTAC placement. 09/05/17: Spoke with nehal social insurance adviser, wean trials sent to LTAC pending approval no word yet regarding approval. Ordered for repeat cultures given uptrend in white count. 09/06/17: pending repeat cultures in light of elevated procalcitonin; ID recommended to reculture. Note: patients PICC lined had clogged ports. Red port remains clogged in spite of cath rafaela. Blue port improved after cath rafaela. Possible may need to remove line to r/o infected line. Strong suspicion due to patient's pneumonia given he has thick secretions. 09/07/17: Infectious disease. pending repeat cultures in light of elevated procalcitonin; Note: patients PICC lined had clogged ports. Red port remains clogged in spite of cath rafaela. Blue port improved after cath rafaela. Hip xray negative for acute fracture. There are no noted falls. 09/08/17: Patient denied for LTAC; awaiting for other options from case management/social work. Resident Eng spoke with Dr. Cortés, patient be transferred under regular bed, when bed is available. Infectious disease on board; Patient started on IV Vancomycin in light of + blood culture. Pending chest xray. 09/09/17: Patient denied for LTAC; awaiting for other options from case management/social work with kamlesh verdin support. Patient started on IV Vancomycin MWF in light of + blood culture. Pending chest xray. F/U sputum with ID. f/u latest blood cultures. 09/13/17: Rapid response for low blood pressure and elevated WBC likely Septic Shock. Started on Levophed, added Meropenem to Vancomycin and 1 dose of Gentamycin given after speaking with ID. Ordered Obstruction Series as no bowel movement since 09/07/17. F/U Shock Panel. Discussed with ICU Resident to arrange for Change of Right Arm Midline line and Trach Collar. 09/14/17: Will await results of Blood Culture 09/13/17 to determine if the Right Arm Midline, Right Chest Perm Cath, and Trach Collar needs to be changed. Spoke with Ore Miner Demetria in ICU and patient information has been sent to [facility] (they accept patients on Trach) and she is awaiting to hear back from them before submitting approval request to insurance company. 09/15/17: [place] Trach placed by [facility]. Surgical Team for debridement of Sacral Ulcer. Spoke with patient's ([place] Den[place] [id number]) and explained/updated her on patient condition and obtained consent for sacral ulcer debridement. 09/16/17: Still awaiting performance of Sacral Bone Scan 09/17/17: Bone Scan performed and awaiting results 09/18/17: Awaiting Bone Scan Report 09/19/17: Still awaiting Bone Scan Report. Spoke again with Ore Miner Demetria and NO word yet from [facility] or [facility] (they do treat patients with Trachs). 09/20/17: Repeat Wound culture and urine culture sent. Dressing changed with medihoney and optifoam. No other changes at this time. Still waiting for approval for [facility] 09/21/17: No changes at this time. Will continue to change wound dressing Q3D and follow up with case management for for long term transfer. 09/22/17: Dressing changed today with medihoney. Healing appropriately. Talked to case management. Still no update from [facility] transfer. Bone scan negative for osteo. Repeat wound cultures continue to grow Enterococcus. Will follow up sensitivities <Mariangel Lazar V - Last Filed: 09/23/17 08:37> Objective - Vital Signs/Intake and Output Vital Signs (last 24 hours): Temp Pulse Resp BP Pulse Ox 98.6 F 90 25 H 145/57 L 99 09/23/17 04:00 09/23/17 06:09 09/23/17 06:09 09/23/17 06:09 09/23/17 06:09 Intake and Output: 09/23/17 09/23/17 06:59 18:59 Intake Total 600 Output Total 0 Balance 600 - Medications Medications: Current Medications Acetylcysteine (Acetylcysteine 20%) 4 ml INH RQ6 [facility] Last Admin: 09/23/17 07:53 Dose: 4 ml Albuterol/Ipratropium (Duoneb 3 Mg/0.5 Mg (3 Ml) Ud) 3 ml INH RQ6 [facility] Last Admin: 09/23/17 07:53 Dose: 3 ml Apixaban (Eliquis) 2.5 mg PO BID [facility] Last Admin: 09/22/17 18:22 Dose: 2.5 mg Aspirin (Aspirin Chewable) 81 mg PO DAILY [facility] Last Admin: 09/22/17 11:29 Dose: 81 mg Calcium Acetate (Phoslo) 1,334 mg GT TID [facility] Last Admin: 09/22/17 18:22 Dose: 1,334 mg Epoetin Chencho (Procrit) 10,000 unit IV MWF [facility] Last Admin: 09/21/17 10:14 Dose: 10,000 unit Famotidine (Pepcid) 20 mg PO DAILY [facility] Last Admin: 09/22/17 11:30 Dose: 20 mg Fluconazole (Diflucan) 200 mg PO DAILY [facility] Last Admin: 09/22/17 13:17 Dose: 200 mg Heparin Sodium (Porcine) (Heparin) 3,700 units IVP [facility] Tigecycline 50 mg/ Dextrose 100 mls @ 100 mls/hr IVPB Q12H [facility] Last Admin: 09/23/17 00:07 Dose: 100 mls/hr Insulin Aspart (Novolog) 0 unit SC Q6 [facility] PRN Reason: Protocol Last Admin: 09/23/17 07:10 Dose: Not Given Insulin Detemir (Levemir) 43 unit SC Q12 [facility] [facility] Last Admin: 09/22/17 22:00 Dose: 43 unit Lactobacillus Acidophilus (Bacid Acidophilus) 1 cap PO BID [facility] Last Admin: 09/22/17 18:00 Dose: 1 cap Metoprolol Tartrate (Lopressor) 50 mg PO BID [facility] Last Admin: 09/22/17 18:22 Dose: 50 mg Rosuvastatin Calcium (Crestor) 10 mg PO HS [facility] Last Admin: 08/26/17 22:41 Dose: 10 mg - Labs Labs: 09/22/17 06:25 09/22/17 06:25 PT 13.9 SECONDS (9.7-12.2) H 08/24/17 06:08 INR 1.2 08/24/17 06:08 APTT 55 SECONDS (21-34) H D 08/17/17 06:12 Attending/Attestation - Attestation I have personally seen and examined this patient.: Yes I have fully participated in the care of the patient.: Yes I have reviewed all pertinent clinical information, including history, physical exam and plan: Yes Notes (Text): This is a late computer entry for 09/22/2017. Patient seen, examined, and case discussed with day-time resident. Patient's sacral wound dressing changed yesterday by resident, sacral wound is healing appropriately. Patient to continue IV abx per ID. Patient is awaiting subacute rehab for discharge, awaiting further updates by case management. Assessment/Plan (1) Acute Respiratory Failure ARDS Cardiac Arrest Pulmonary Edema Nonstemi Assessment and Plan: * Code Blue on 08/10: asystole, cardiopulmonary resuscitative measures initiated , requiring 3 epis, bicarbonate, ROSC achieved and intubated and brought to the ICU for further management; Patient in the ICU from 08/10 until present. * Pulmonary: Dr Mena (Dr. Jeffers covering until 09/04/17)-->help appreciated * Cardiology: Dr. Cortés on board-->help appreciated * GI (Dr. Wills) on board-->help appreciated * S/P Tracheostomy 08/22 * S/P Peg tube placement 08/25 * s/p insertion of right posterior chest tube 08/19-->removed 08/24/17 * Pass[place] Trach placed 09/15 * There was consideration for possible thoracentesis of left side pleural effusion, evaluated by IR, there is no fluid to drain per Dr. Gross * Chest xray (08/26): right arm PICC is seen with the tip of distal subclavian vein. PICC may be used * Chest Xray (09/20/17): lines and tubes stable position, left-sided pacemaker, moderate venous congestion, left basilar opacity with associated small left pleural effusion, Cardiomegaly. Prominent aorta, degenrative changes in spine and shoulders * Medications: * Acetylcysteine 20% 4ml INH RQ6H * Duoneb 3ml INH RQ6H * Aspirin 81mg PO daily * Eliquis 2.5mg PO bid * Lopressor 50mg PO bid (2) Abnormal Stress Test History of AICD History of Coronary Artery Disease Assessment and Plan: * Cardiology (Dr. Cortés) on board-->help appreciated * TSH: 1.16; T4: 1.53 * Echocardiogram (08/08/17): left ventricle systolic function is severely impaired. EF: 25-30%; global hypokinesis of left ventricle mild aortic regurgitation. Mitral regurgitation is moderate. Moderate-severe pulmonary hypertension * Plan was for cardiac catheterization; delayed due to acute renal failure; Attempted gentle hydration and mucomyst on 08/09 to optimize prior to cath * On 08/10, patient was in asystole, ACLS protocol, ROSC achieved, intubated and transfered to the ICU. Patient in acute pulmonary edema. * Patient hospitalized and require to and from ICU twice during this admission * Cardiac cath postponed at this time * Medications: * Acetylcysteine 20% 4ml INH RQ6H * Duoneb 3ml INH RQ6H * Aspirin 81mg PO daily * Eliquis 2.5mg PO bid * Lopressor 50mg PO bid (3) Atrial flutter Assessment and Plan: * Cardiology (Dr. Cortés) on board-->help appreciated * Refractory to Lopressor/Cardizem IVP * Eliquis 2.5mg PO bid * Off Amiodarone per cardiology * c/w Lopressor 50mg PO bid Status: Resolved (4) Acute on Chronic Systolic CHF exacerbation Assessment and Plan: * Cardiology (Dr. Cortés) on board-->help appreciated * Transferred to the ICU on 08/10 following cardiac arrest and intubation. * Echocardiogram (08/08/17): left ventricular systolic function is severely impaired. EF: 25-30%; global hypokinesis of left ventricle mild aortic regurgitation. Mitral regurgitation is moderate. Moderate-severe pulmonary hypertension * Medications: * Aspirin 81mg PO daily * Lopressor 50mg PO bid * ARB d/c secondary to acute renal failure * Restart statin given LFTs normalized * Weight: 184; as high as 291 (questionable) on admission Status: Stable (5) Leukocytosis Assessment and Plan: * Pleural Fluid 08/19/17 did not show any growth * Blood cultures (09/13): no growth X5 days X2 * Blood cultures (09/07) during dialysis: no growth X5 days X2 * UA and urine culture (08/27): Yeast Species. * UA and urine culture (09/13): Yeast Species. 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 * Sacral Ulcer (09/14/17): VRE and Reny Albicans * Blood Culture 09/13/17 is negative to date and Urine Culture 09/13/17 showed Yeast Species * Bone Scan performed 09/17/17 to check for Osteomyelitis at the Sacrum: negative for osteomyelitis * OFF Meropenem 500 mg IV Q12H (09/13/17 through 09/16/17: which will cover the Enterbacter in the Sputum 09/07/17 and the possibility of Sacral Osteomyelitis) * c/w Tigecycline (09/16/17: which will cover the VRE in Sacral Wound Culture and the possibility of Sacral Osteomyelitis) and Diflucan 200 mg PO 1x/ day (09/13/17: which will cover with Yeast in the Sputum, Urine, and Sacral Wound Culture) * Procalcitionin: 8.60 (09/06/17)-->5.50 Status: Acute (6) Pneumonia Assessment and Plan: * Pulmonary (Dr. Mena) on board-->help appreciated * Infectious Disease (Dr. Lawrence)-->help appreciated * Chest xray (08/26): right arm PICC is seen with the tip of distal subclavian vein. PICC may be used * Rapid A strep, Influenza A and B studies, Urine Legionella, Mycoplasma studies = Negative * Florastor 250mg PO bid * 08/07/17: +Strep Pneumoniae in the urine * Meropenem 500mg IV Q 8 hours (08/14/17 through 08/18/17) and Zosyn 2.25 mg IV Q6H (08/13/17 through 08/18/17) * Cefepime 1 gm IV Q24H: started on 08/19/17 and was discontinued by ID Dr. Lawrence on 08/30/17: monitor vitals and labs * s/p right posterior chest tube 08/19-08/24 * Sputum Culture 08/19/17 shows No growth * Pleural fluid 08/19/17: No growth * 09/07/17 Sputum: Enterocloace Bacter and Yeast Species: See Antibiotic treatment in previous Assessment and Plan * Sputum 09/10/17 shows NO AFB Status: Acute (7) HTN (hypertension) Assessment and Plan: * Lopressor 50mg PO bid * Lisinopril 5mg PO daily Status: Chronic (8) CKD (chronic kidney disease) on Dialysis Assessment and Plan: * Dr. Miranda (nephrology) consulted on the case * Hx of CKD-->Started on dialysis 08/15/17 * Kurtis catheter placed and removed 08/22 * s/p Right Chest Permcath 08/22 * Patient is on dialysis -W-; oliguric * Phoslo 1334mg GT TID * Epoetin 10,000 unit IV MWF Status: Crhonic (9) Diabetes mellitus Assessment and Plan: * Accuchecks Q6H * HgbA1c 8.4 * Started peg feedings on 08/26/17 * Nepro-->50 ml/hour but this was held 09/13/17 due suspicion of Bowel Obstruction as NO bowel Movement since 09/07/17. This was restarted on after NO obstruction was observed on Obstruction Series 09/13/17 and after multiple bowel movement s/p Fleet Enema 09/13/17 (10) HLD (hyperlipidemia) Assessment and Plan: * LFTS have normalized; will restart statin 09/20/17 Status: Chronic (11) Anemia Assessment and Plan: * Heme-oncology (Dr. Giles bender) on board-->help appreciated * Likely iron deficiency anemia based on prior admissions * Ferritin 27.4, Iron 22, TIBC 322, % Saturation 7 * Ferric Sodium Gluconate 125mg IVPB daily (active 08/08-08/16) * Procrit 10,000 units -- * Monitor Hgb/Hct: stable Status: Chronic (12) History of DVT (deep vein thrombosis) Assessment and Plan: * Patient was previously on Eliquis for a prior history of DVT. * Repeat dopplers 08/09/17 are negative for DVT * Off Heparin Drip 08/17/17 * Started Eliquis 2.5mg PO BID for atrial flutter and history of DVT Status: Chronic (13) UTI Assessment and Plan: * Infectious disease (Dr. Lawrence) on board-->help appreciated * Exchange jaquez out and repeat urine cultures * Urine Culture 08/12/17 showed Gram Negative Rods: NO identification and NO sensitivities were performed * Meropenem 500mg IV Q 12hours (active since 08/14/17 through 08/18/17) to cover for UTI per ID * Repeat Urine Culture 08/18/17 shows NO growth * 08/25: reculture in light of leukocytosis * 08/27: pending urine studies * 08/30: Urine Culture 08/27/17 showed Yeast Species but no antifungal at that time secondary to recent history of Elevated LFTs * Urine Culture 09/13/17 showed Yeast Species: he is on Diflucan Status: Chronic (14) Confusion; Alzheimer's Dementia Assessment and Plan: * Per daughter, patient has been getting bouts of confusion over the past year but appears at baseline. Patient has not seen formal neurology as outpatient per daughter. Per , prior to event, noted Alzheimers' disease dx one year ago * CT head w/o contrast (08/10/17):acute os subacute lacune infarct is not excluded in the left basal ganglia inferiorly with definitive chronic lacune identified in the right basal ganglia superiorly. No acute or subacute lobar brain infarction is appreciable by standard CT criteria. Mild age-related neuro degenerative changes are identifed. No acute intracranial hemorrhage or mass is identified throughout * 08/26: Off Sedation-->patient moves all extremities randomly but does not follow directions * 08/27: off sedation-->patient is very calm, smiles at his * 08/28: off sedation-->patient is very calm Status: Chronic (15) Unstageable Sacral Ulcer, Left Ear Auricle Ulcer, Right Heal Ulcer Assessment and Plan: * Wound care on board * WOUND CARE NOTE (08/26)-->Pt with a sacral unstageable being treated with medihoney. No changes to dimensions at this time. Also, pt favoring Left side of head and has developed a 1x1 serous filled blister on his left ear. Primary nurse placed duoderm on the ear. Wound care nurse left duoderm in place , and recommends leaving it on until it falls off on its own. Pt has been NPO for several days, new peg inserted yesterday. Will be starting glucerna tube feedings later today. Albumin 3.3 * Turn q 2 hours * medihoney on unstageable ulcer * duoderm on left ear aurical ulcer: this is healed as of 09/15/17 * Prevalon Boots for Right Heal Blister 09/13/17 * 09/02/17: examined with Wound Care Nurse Emeka Samuel and periphery of the Sacral Wound is pink with some bleeding however center is still black and therefore still unstageable. Continue spray with Cavelon followed by thick coating with MediHoney followed by covering with OptiFoam once a day. * 09/03/17: Change of sacral ulcer dressing was performed by me with assitance from Nurse Lyman * 09/04/17: 09/03/17: Change of sacral ulcer dressing was performed by me with assistance from ALEXANDRA Unger * Per wound care note (09/07): sacral ulcer is stable per wound care nurse * 09/14/17: Sacral Ulcer is unstageable and area of blackness fills entire circumference. General Surgery consult placed to see if debridement is necessary. Continue Cavelon [place] followed by paulina thick coating of MediHoney followed by covering with OptiFoam. * 09/15/17: Surgery Team debrided Sacral Ulcer and Bone Scan will need to be followed up which was performed 09/17/17 * 09/18/17: With the help of Nurse Guzman, applied Cavelon [place] followed by thick coating of MediHoney followed by covering with OptiFoam * 09/19/17: Dressing for Sacral Ulcer already changed before my exam. Explained to Nurse Guzman that best application of MediHoney would be to cover the padding of the OptiFoam with it and then apply the OptiFoam to the ulcer. * Sacral Ulcer (09/15/17): VRE and Reny Albicans * Sacral Ulcer (09/14/17): VRE and Reny Albicans * c/w Tigecycline (09/16/17: which will cover the VRE in Sacral Wound Culture 09/14/17 and the possibility of Sacral Osteomyelitis) and Diflucan 200 mg PO 1x/ day (09/13/17: which will cover with Yeast in the Sputum, Urine, and Sacral Wound Culture) * 09/20/17: Opti dressing placed by resident, sample taken by resident to see if sacral wound is healing/treated with IV abx coverage * 09/22/17: Dressing was changed yesterday by the resident, granulation tissue, procalcitonin improved from 8-->5. Status: Acute (16) Elevated LFTs Assessment and Plan: * Have normalized * Currently on Diflucan since 09/13/17 * Will restart patient's statin (17). Hx Constipation * Monitor bowel movement * 09/20/17; discussed with ICU nurse, patient had bowel movement today and yesterday * 09/22/17: patient had bowel movement (18). Hyponatremia * 09/19/17: at 127 monitor for now (19). Prophylactic measure Assessment and Plan: * Pepcid 20mg PO daily * Start Eliquis 2.5mg PO BID * s/p peg placement 08/25 * s/p trachesostomy 08/22 * s/p Permcath placement 08/22 removal Kurtis catheter * s/p right posterior chest tube 08/19-->removed 08/24 * s/p Right Arm PICC 08/26 * [place] Trach placed 09/15 * (Jovita Serrano): -->number provided to the nurse- ->consented for peg placement; discussed about LTAC 08/26 * Spoke with Dr. Pickard, PMD regarding patient's hospitalization up until this point 08/26 Disposition: * Awaiting from case management in regards to discharge to subacute rehab * Patient is currently on IV abx for sacral wound and urinary tract infection; monitor sacral wound; dressing changed today
--- NOTE | 2017-09-22 10:47 | CP.PCM.PN ---
<Uzma Sun DO - Last Filed: 09/22/17 11:41> Subjective - Date & Time of Evaluation Date of Evaluation: 09/22/17 Time of Evaluation: 10:40 - Subjective Subjective: Cardiology progress note for Dr. Cortés Patient seen and examined. No acute events noted overnight. Patient resting comfortable in bed, ROS unobtainable, patient nonverbal. Objective - Vital Signs/Intake and Output Vital Signs (last 24 hours): Temp Pulse Resp BP Pulse Ox 98.8 F 84 24 134/61 100 09/22/17 04:00 09/22/17 06:00 09/22/17 06:00 09/22/17 05:39 09/22/17 06:00 Intake and Output: 09/22/17 09/22/17 06:59 18:59 Intake Total 0 Output Total 0 Balance 0 - Medications Medications: Current Medications Acetylcysteine (Acetylcysteine 20%) 4 ml INH RQ6 [facility] Last Admin: 09/22/17 07:52 Dose: 4 ml Albuterol/Ipratropium (Duoneb 3 Mg/0.5 Mg (3 Ml) Ud) 3 ml INH RQ6 [facility] Last Admin: 09/22/17 07:52 Dose: 3 ml Apixaban (Eliquis) 2.5 mg PO BID [facility] Last Admin: 09/21/17 17:42 Dose: 2.5 mg Aspirin (Aspirin Chewable) 81 mg PO DAILY [facility] Last Admin: 09/21/17 10:37 Dose: 81 mg Calcium Acetate (Phoslo) 1,334 mg GT TID [facility] Last Admin: 09/21/17 17:43 Dose: 1,334 mg Epoetin Chencho (Procrit) 10,000 unit IV MWF [facility] Last Admin: 09/21/17 10:14 Dose: 10,000 unit Famotidine (Pepcid) 20 mg PO DAILY [facility] Last Admin: 09/21/17 10:37 Dose: 20 mg Fluconazole (Diflucan) 200 mg PO DAILY [facility] Last Admin: 09/21/17 10:41 Dose: 200 mg Heparin Sodium (Porcine) (Heparin) 3,700 units IVP TTS [facility] Stop: 10/07/17 23:59 Last Admin: 09/21/17 10:14 Dose: 3,700 units Tigecycline 50 mg/ Sodium (Chloride) 100 mls @ 100 mls/hr IVPB Q12H [facility] Last Admin: 09/21/17 23:54 Dose: 100 mls/hr Insulin Aspart (Novolog) 0 unit SC Q6 [facility] PRN Reason: Protocol Last Admin: 09/22/17 06:37 Dose: 2 unit Insulin Detemir (Levemir) 43 unit SC Q12 [facility] Last Admin: 09/21/17 22:00 Dose: Not Given Lactobacillus Acidophilus (Bacid Acidophilus) 1 cap PO BID [facility] Last Admin: 09/21/17 17:43 Dose: 1 cap Metoprolol Tartrate (Lopressor) 50 mg PO BID [facility] Last Admin: 09/21/17 17:42 Dose: 50 mg Rosuvastatin Calcium (Crestor) 10 mg PO HS [facility] Last Admin: 08/26/17 22:41 Dose: 10 mg - Labs Labs: 09/22/17 06:25 09/22/17 06:25 PT 13.9 SECONDS (9.7-12.2) H 08/24/17 06:08 INR 1.2 08/24/17 06:08 APTT 55 SECONDS (21-34) H D 08/17/17 06:12 - Constitutional Appears: Non-toxic, No Acute Distress - Head Exam Head Exam: ATRAUMATIC, NORMOCEPHALIC - Eye Exam Eye Exam: EOMI - ENT Exam ENT Exam: Mucous Membranes Moist - Neck Exam Additional comments: trach collar - Respiratory Exam Respiratory Exam: Clear to Ausculation Bilateral, NORMAL BREATHING PATTERN - Cardiovascular Exam Cardiovascular Exam: Tachycardia, +S1, +S2 - GI/Abdominal Exam GI & Abdominal Exam: Soft, Normal Bowel Sounds Additional comments: PEG - Extremities Exam Extremities Exam: Normal Inspection - Back Exam Additional comments: sacral ulcer examined, necrotic base medihoney applied - Neurological Exam Neurological Exam: Alert, Awake - Skin Skin Exam: Warm Assessment and Plan - Assessment and Plan (Free Text) Assessment: Patient is a 77 year old male with PMHx significant for CAD with prior stent placement, HTN, HLD, DM 2, CKD, Anemia, permanent pacemaker, prior DVT and chronic lower extremity edema presents with complaints of chest pain and shortness of breath with ambulation (08/06/17). Patient was admitted to ICU on from hospital floors due to code blue as patient was enroute to CT scan. Patient is currently with a tracheostomy due to respiratory distress secondary to cardiac arrest. Patient currently telemetry status. Atrial Fibrillation Intermittent Rate controlled. On Metoprolol 50 mg PO BID, Eliquis 2.5 mg PO BID CAD, chest pain -patient not currently candidate for cath (acute respiratory failure and elevated Cr), history of abnormal stress test, continue medical management -Elevated Troponin likely due to chest compressions during cardiac arrest 08/10 -No acute ST changes on EKG -Continue ASA, Crestor 10mg HS, Metoprolol 50mg BID -Echocardiogram from 08/08/17 showed left ventricle systolic function is severely impaired. EF: 25-30%; global hypokinesis of LV mild AR. MR is moderate. Moderate-severe pulmonary hypertension Chronic Systolic CHF s/p AICD -CXR 09/20: left-sided pacemaker, moderate venous congestion, left basilar opacity with small left pleural effusion, cardiomegaly. no significant interval change -BNP 89024 on 08/06/17 -Continue ASA, Crestor, Metoprolol -Echocardiogram from 08/08/17 showed left ventricle systolic function is severely impaired. EF: 25-30%; global hypokinesis of LV mild AR. MR is moderate. Moderate-severe pulmonary hypertesnion Dobutamine discontinued in light of atrial flutter-type episodes Sacral ulcer pt s/p debridement continue sacral wound dressing changes continue antibiotics micro: Enterococcus faecium contact Leukocytosis continue antibiotics as per primary team for ulcer and UTI Renal failure continue HD MWF as per nephrology team Patient pending NH/ LTAC placement Plan as per Dr. Cortés <Sina Cortés - Last Filed: 09/22/17 23:13> Objective - Vital Signs/Intake and Output Vital Signs (last 24 hours): Temp Pulse Resp BP Pulse Ox 98.6 F 82 11 L 140/54 L 90 L 09/22/17 20:00 09/22/17 22:09 09/22/17 22:09 09/22/17 22:09 09/22/17 22:09 Intake and Output: 09/22/17 09/23/17 18:59 06:59 Intake Total 500 200 Output Total 0 0 Balance 500 200 - Medications Medications: Current Medications Acetylcysteine (Acetylcysteine 20%) 4 ml INH RQ6 [facility] Last Admin: 09/22/17 20:29 Dose: 4 ml Albuterol/Ipratropium (Duoneb 3 Mg/0.5 Mg (3 Ml) Ud) 3 ml INH RQ6 [facility] Last Admin: 09/22/17 20:29 Dose: 3 ml Apixaban (Eliquis) 2.5 mg PO BID [facility] Last Admin: 09/22/17 18:22 Dose: 2.5 mg Aspirin (Aspirin Chewable) 81 mg PO DAILY [facility] Last Admin: 09/22/17 11:29 Dose: 81 mg Calcium Acetate (Phoslo) 1,334 mg GT TID [facility] Last Admin: 09/22/17 18:22 Dose: 1,334 mg Epoetin Chencho (Procrit) 10,000 unit IV MWF [facility] Last Admin: 09/21/17 10:14 Dose: 10,000 unit Famotidine (Pepcid) 20 mg PO DAILY [facility] Last Admin: 09/22/17 11:30 Dose: 20 mg Fluconazole (Diflucan) 200 mg PO DAILY [facility] Last Admin: 09/22/17 13:17 Dose: 200 mg Heparin Sodium (Porcine) (Heparin) 3,700 units IVP [facility] Tigecycline 50 mg/ Dextrose 100 mls @ 100 mls/hr IVPB Q12H [facility] Insulin Aspart (Novolog) 0 unit SC Q6 [facility] PRN Reason: Protocol Last Admin: 09/22/17 18:23 Dose: 4 unit Insulin Detemir (Levemir) 43 unit SC Q12 [facility] Last Admin: 09/22/17 10:00 Dose: Not Given Lactobacillus Acidophilus (Bacid Acidophilus) 1 cap PO BID [facility] Last Admin: 09/22/17 11:30 Dose: 1 cap Metoprolol Tartrate (Lopressor) 50 mg PO BID [facility] Last Admin: 09/22/17 18:22 Dose: 50 mg Rosuvastatin Calcium (Crestor) 10 mg PO HS [facility] Last Admin: 08/26/17 22:41 Dose: 10 mg - Labs Labs: 09/22/17 06:25 09/22/17 06:25 PT 13.9 SECONDS (9.7-12.2) H 08/24/17 06:08 INR 1.2 08/24/17 06:08 APTT 55 SECONDS (21-34) H D 08/17/17 06:12 Assessment and Plan - Assessment and Plan (Free Text) Assessment: Patient seen and evaluated with the ophthalmic medical technologist Plan of care as documented
[2017-09-22] MEDS: Lactobacillus Acidophilus 500 MU Cap PO SCH ×2 (11:30→18:00)
[2017-09-23] MEDS: (Novolog) Insulin Aspart, Recombinant 100 u/ml 10 ml vial SC SCH ×4 (00:05→18:33)
[2017-09-23] MEDS: Tigecycline 50 MG in Dextrose 5% In Water 100 ML IVPB SCH ×2 (00:07→12:37)
[2017-09-23] MEDS: Albuterol-Ipratrop 3 mg / 0.5 (3 ml) UD INH SCH ×3 (01:19→14:09)
[2017-09-23] MEDS: Acetylcysteine 20% Inhal Soln (4ml) INH SCH ×4 (01:19→19:53)
--- NOTE | 2017-09-23 08:38 | CP.PCM.PN ---
Subjective - Date & Time of Evaluation Date of Evaluation: 09/23/17 Time of Evaluation: 08:25 - Subjective Subjective: Medical Attending Note: Patient seen, examined, and case discussed with nursing staff. No acute events overnight. Patient is having bowel movements. Patient having oral care at bedside. ROS unobtainable secondary to clinical condition. Awaiting blood works this morning Objective - Vital Signs/Intake and Output Vital Signs (last 24 hours): Temp Pulse Resp BP Pulse Ox 98.6 F 90 25 H 145/57 L 99 09/23/17 04:00 09/23/17 06:09 09/23/17 06:09 09/23/17 06:09 09/23/17 06:09 Intake and Output: 09/23/17 09/23/17 06:59 18:59 Intake Total 600 Output Total 0 Balance 600 - Medications Medications: Current Medications Acetylcysteine (Acetylcysteine 20%) 4 ml INH RQ6 [facility] Last Admin: 09/23/17 07:53 Dose: 4 ml Albuterol/Ipratropium (Duoneb 3 Mg/0.5 Mg (3 Ml) Ud) 3 ml INH RQ6 [facility] Last Admin: 09/23/17 07:53 Dose: 3 ml Apixaban (Eliquis) 2.5 mg PO BID [facility] Last Admin: 09/22/17 18:22 Dose: 2.5 mg Aspirin (Aspirin Chewable) 81 mg PO DAILY [facility] Last Admin: 09/22/17 11:29 Dose: 81 mg Calcium Acetate (Phoslo) 1,334 mg GT TID [facility] Last Admin: 09/22/17 18:22 Dose: 1,334 mg Epoetin Chencho (Procrit) 10,000 unit IV MWF [facility] Last Admin: 09/21/17 10:14 Dose: 10,000 unit Famotidine (Pepcid) 20 mg PO DAILY [facility] Last Admin: 09/22/17 11:30 Dose: 20 mg Fluconazole (Diflucan) 200 mg PO DAILY [facility] Last Admin: 09/22/17 13:17 Dose: 200 mg Heparin Sodium (Porcine) (Heparin) 3,700 units IVP MWF [facility] Tigecycline 50 mg/ Dextrose 100 mls @ 100 mls/hr IVPB Q12H [facility] Last Admin: 09/23/17 00:07 Dose: 100 mls/hr Insulin Aspart (Novolog) 0 unit SC Q6 [facility] PRN Reason: Protocol Last Admin: 09/23/17 07:10 Dose: Not Given Insulin Detemir (Levemir) 43 unit SC Q12 [facility] Last Admin: 09/22/17 22:00 Dose: 43 unit Lactobacillus Acidophilus (Bacid Acidophilus) 1 cap PO BID [facility] Last Admin: 09/22/17 18:00 Dose: 1 cap Metoprolol Tartrate (Lopressor) 50 mg PO BID [facility] Last Admin: 09/22/17 18:22 Dose: 50 mg Rosuvastatin Calcium (Crestor) 10 mg PO HS [facility] Last Admin: 08/26/17 22:41 Dose: 10 mg - Labs Labs: 09/22/17 06:25 09/22/17 06:25 PT 13.9 SECONDS (9.7-12.2) H 08/24/17 06:08 INR 1.2 08/24/17 06:08 APTT 55 SECONDS (21-34) H D 08/17/17 06:12 - Constitutional Appears: Chronically Ill - Head Exam Head Exam: NORMAL INSPECTION - Eye Exam Eye Exam: EOMI - ENT Exam ENT Exam: Mucous Membranes Dry - Respiratory Exam Respiratory Exam: Decreased Breath Sounds, NORMAL BREATHING PATTERN. absent: Respiratory Distress - Cardiovascular Exam Cardiovascular Exam: REGULAR RHYTHM, +S1, +S2 - GI/Abdominal Exam GI & Abdominal Exam: Soft, Normal Bowel Sounds. absent: Distended, Firm, Guarding, Rigid, Tenderness, Rebound - Extremities Exam Extremities Exam: absent: Pedal Edema, Tenderness Additional comments: scds b/l - Neurological Exam Neurological Exam: Awake - Psychiatric Exam Psychiatric exam: Normal Mood - Skin Skin Exam: Dry, Normal Color, Warm Assessment and Plan - Assessment and Plan (Free Text) Assessment: Patient seen, examined, and case discussed with day-time resident. Patient seen during dialysis. Patient does not appear in acute distress, Dressing over sacral wound changed yesterday, granulation tissue, healing. Patient's repeat sacral wound (09/20/17): VRE and Reny Albicans. Patient is pending placement. Patient had bowel movement yesterday and today per nursing staff, no acute events overnight. Assessment/Plan (1) Acute Respiratory Failure ARDS Cardiac Arrest Pulmonary Edema Nonstemi Assessment and Plan: * Code Blue on 08/10: asystole, cardiopulmonary resuscitative measures initiated , requiring 3 epis, bicarbonate, ROSC achieved and intubated and brought to the ICU for further management; Patient in the ICU from 08/10 until present. * Pulmonary: Dr Mena (Dr. Jeffers covering until 09/04/17)-->help appreciated * Cardiology: Dr. Cortés on board-->help appreciated * GI (Dr. Wills) on board-->help appreciated * S/P Tracheostomy 08/22 * S/P Peg tube placement 08/25 * s/p insertion of right posterior chest tube 08/19-->removed 08/24/17 * Passy Flex Trach placed 09/15 * There was consideration for possible thoracentesis of left side pleural effusion, evaluated by IR, there is no fluid to drain per Dr. Gross * Chest xray (08/26): right arm PICC is seen with the tip of distal subclavian vein. PICC may be used * Chest Xray (09/20/17): lines and tubes stable position, left-sided pacemaker, moderate venous congestion, left basilar opacity with associated small left pleural effusion, Cardiomegaly. Prominent aorta, degenrative changes in spine and shoulders * Medications: * Acetylcysteine 20% 4ml INH RQ6H * Duoneb 3ml INH RQ6H * Aspirin 81mg PO daily * Eliquis 2.5mg PO bid * Lopressor 50mg PO bid (2) Abnormal Stress Test History of AICD History of Coronary Artery Disease Assessment and Plan: * Cardiology (Dr. Cortés) on board-->help appreciated * TSH: 1.16; T4: 1.53 * Echocardiogram (08/08/17): left ventricle systolic function is severely impaired. EF: 25-30%; global hypokinesis of left ventricle mild aortic regurgitation. Mitral regurgitation is moderate. Moderate-severe pulmonary hypertension * Plan was for cardiac catheterization; delayed due to acute renal failure; Attempted gentle hydration and mucomyst on 08/09 to optimize prior to cath * On 08/10, patient was in asystole, ACLS protocol, ROSC achieved, intubated and transfered to the ICU. Patient in acute pulmonary edema. * Patient hospitalized and require to and from ICU twice during this admission * Cardiac cath postponed at this time * Medications: * Acetylcysteine 20% 4ml INH RQ6H * Duoneb 3ml INH RQ6H * Aspirin 81mg PO daily * Eliquis 2.5mg PO bid * Lopressor 50mg PO bid (3) Atrial flutter Assessment and Plan: * Cardiology (Dr. Cortés) on board-->help appreciated * Refractory to Lopressor/Cardizem IVP * Eliquis 2.5mg PO bid * Off Amiodarone per cardiology * c/w Lopressor 50mg PO bid Status: Resolved (4) Acute on Chronic Systolic CHF exacerbation Assessment and Plan: * Cardiology (Dr. Cortés) on board-->help appreciated * Transferred to the ICU on 08/10 following cardiac arrest and intubation. * Echocardiogram (08/08/17): left ventricular systolic function is severely impaired. EF: 25-30%; global hypokinesis of left ventricle mild aortic regurgitation. Mitral regurgitation is moderate. Moderate-severe pulmonary hypertension * Medications: * Aspirin 81mg PO daily * Lopressor 50mg PO bid * ARB d/c secondary to acute renal failure * Restart statin given LFTs normalized * Weight: 184; as high as 291 (questionable) on admission Status: Stable (5) Leukocytosis Assessment and Plan: * Pleural Fluid 08/19/17 did not show any growth * Blood cultures (09/13): no growth X5 days X2 * Blood cultures (09/07) during dialysis: no growth X5 days X2 * UA and urine culture (08/27): Yeast Species. * UA and urine culture (09/13): Yeast Species. 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 * Sacral Ulcer (09/14/17): VRE and Reny Albicans * Blood Culture 09/13/17 is negative to date and Urine Culture 09/13/17 showed Yeast Species * Bone Scan performed 09/17/17 to check for Osteomyelitis at the Sacrum: negative for osteomyelitis * OFF Meropenem 500 mg IV Q12H (09/13/17 through 09/16/17: which will cover the Enterbacter in the Sputum 09/07/17 and the possibility of Sacral Osteomyelitis) * c/w Tigecycline (09/16/17: which will cover the VRE in Sacral Wound Culture and the possibility of Sacral Osteomyelitis) and Diflucan 200 mg PO 1x/ day (09/13/17: which will cover with Yeast in the Sputum, Urine, and Sacral Wound Culture) * Procalcitionin: 8.60 (09/06/17)-->5.50 Status: Acute (6) Pneumonia Assessment and Plan: * Pulmonary (Dr. Mena) on board-->help appreciated * Infectious Disease (Dr. Lawrence)-->help appreciated * Chest xray (08/26): right arm PICC is seen with the tip of distal subclavian vein. PICC may be used * Rapid A strep, Influenza A and B studies, Urine Legionella, Mycoplasma studies = Negative * Florastor 250mg PO bid * 08/07/17: +Strep Pneumoniae in the urine * Meropenem 500mg IV Q 8 hours (08/14/17 through 08/18/17) and Zosyn 2.25 mg IV Q6H (08/13/17 through 08/18/17) * Cefepime 1 gm IV Q24H: started on 08/19/17 and was discontinued by ID Dr. Lawrence on 08/30/17: monitor vitals and labs * s/p right posterior chest tube 08/19-08/24 * Sputum Culture 08/19/17 shows No growth * Pleural fluid 08/19/17: No growth * 09/07/17 Sputum: Enterocloace Bacter and Yeast Species: See Antibiotic treatment in previous Assessment and Plan * Sputum 09/10/17 shows NO AFB Status: Acute (7) HTN (hypertension) Assessment and Plan: * Lopressor 50mg PO bid * Lisinopril 5mg PO daily Status: Chronic (8) CKD (chronic kidney disease) on Dialysis Assessment and Plan: * Dr. iMranda (nephrology) consulted on the case * Hx of CKD-->Started on dialysis 08/15/17 * Kurtis catheter placed and removed 08/22 * s/p Right Chest Permcath 08/22 * Patient is on dialysis M-W-F; oliguric * Phoslo 1334mg GT TID * Epoetin 10,000 unit IV MWF Status: Crhonic (9) Diabetes mellitus Assessment and Plan: * Accuchecks Q6H * HgbA1c 8.4 * Started peg feedings on 08/26/17 * Nepro-->50 ml/hour but this was held 09/13/17 due suspicion of Bowel Obstruction as NO bowel Movement since 09/07/17. This was restarted on after NO obstruction was observed on Obstruction Series 09/13/17 and after multiple bowel movement s/p Fleet Enema 09/13/17 (10) HLD (hyperlipidemia) Assessment and Plan: * LFTS have normalized; will restart statin 09/20/17 Status: Chronic (11) Anemia Assessment and Plan: * Heme-oncology (Dr. Giles bender) on board-->help appreciated * Likely iron deficiency anemia based on prior admissions * Ferritin 27.4, Iron 22, TIBC 322, % Saturation 7 * Ferric Sodium Gluconate 125mg IVPB daily (active 08/08-08/16) * Procrit 10,000 units M-W- * Monitor Hgb/Hct: stable Status: Chronic (12) History of DVT (deep vein thrombosis) Assessment and Plan: * Patient was previously on Eliquis for a prior history of DVT. * Repeat dopplers 08/09/17 are negative for DVT * Off Heparin Drip 08/17/17 * Started Eliquis 2.5mg PO BID for atrial flutter and history of DVT Status: Chronic (13) UTI Assessment and Plan: * Infectious disease (Dr. Lawrence) on board-->help appreciated * Exchange jaquez out and repeat urine cultures * Urine Culture 08/12/17 showed Gram Negative Rods: NO identification and NO sensitivities were performed * Meropenem 500mg IV Q 12hours (active since 08/14/17 through 08/18/17) to cover for UTI per ID * Repeat Urine Culture 08/18/17 shows NO growth * 08/25: reculture in light of leukocytosis * 08/27: pending urine studies * 08/30: Urine Culture 08/27/17 showed Yeast Species but no antifungal at that time secondary to recent history of Elevated LFTs * Urine Culture 09/13/17 showed Yeast Species: he is on Diflucan Status: Chronic (14) Confusion; Alzheimer's Dementia Assessment and Plan: * Per daughter, patient has been getting bouts of confusion over the past year but appears at baseline. Patient has not seen formal neurology as outpatient per daughter. Per , prior to event, noted Alzheimers' disease dx one year ago * CT head w/o contrast (08/10/17):acute os subacute lacune infarct is not excluded in the left basal ganglia inferiorly with definitive chronic lacune identified in the right basal ganglia superiorly. No acute or subacute lobar brain infarction is appreciable by standard CT criteria. Mild age-related neuro degenerative changes are identifed. No acute intracranial hemorrhage or mass is identified throughout * 08/26: Off Sedation-->patient moves all extremities randomly but does not follow directions * 08/27: off sedation-->patient is very calm, smiles at his * 08/28: off sedation-->patient is very calm Status: Chronic (15) Unstageable Sacral Ulcer, Left Ear Auricle Ulcer, Right Heal Ulcer Assessment and Plan: * Wound care on board * WOUND CARE NOTE (08/26)-->Pt with a sacral unstageable being treated with medihoney. No changes to dimensions at this time. Also, pt favoring Left side of head and has developed a 1x1 serous filled blister on his left ear. Primary nurse placed duoderm on the ear. Wound care nurse left duoderm in place , and recommends leaving it on until it falls off on its own. Pt has been NPO for several days, new peg inserted yesterday. Will be starting glucerna tube feedings later today. Albumin 3.3 * Turn q 2 hours * medihoney on unstageable ulcer * duoderm on left ear aurical ulcer: this is healed as of 09/15/17 * Prevalon Boots for Right Heal Blister 09/13/17 * 09/02/17: examined with Wound Care Nurse Emeka Samuel and periphery of the Sacral Wound is pink with some bleeding however center is still black and therefore still unstageable. Continue spray with Cavelon followed by thick coating with MediHoney followed by covering with OptiFoam once a day. * 09/03/17: Change of sacral ulcer dressing was performed by me with assitance from Nurse Lyman * 09/04/17: 09/03/17: Change of sacral ulcer dressing was performed by me with assistance from ALEXANDRA Unger * Per wound care note (10/11): sacral ulcer is stable per wound care nurse * 09/14/17: Sacral Ulcer is unstageable and area of blackness fills entire circumference. General Surgery consult placed to see if debridement is necessary. Continue Cavelon [place] followed by paulina thick coating of MediHoney followed by covering with OptiFoam. * 09/15/17: Surgery Team debrided Sacral Ulcer and Bone Scan will need to be followed up which was performed 09/17/17 * 09/18/17: With the help of Nurse Guzman, applied Cavelon [place] followed by thick coating of MediHoney followed by covering with OptiFoam * 09/19/17: Dressing for Sacral Ulcer already changed before my exam. Explained to Nurse Guzman that best application of MediHoney would be to cover the padding of the OptiFoam with it and then apply the OptiFoam to the ulcer. * Sacral Ulcer (09/15/17): VRE and Reny Albicans * Sacral Ulcer (09/14/17): VRE and Reny Albicans * c/w Tigecycline (09/16/17: which will cover the VRE in Sacral Wound Culture 09/14/17 and the possibility of Sacral Osteomyelitis) and Diflucan 200 mg PO 1x/ day (09/13/17: which will cover with Yeast in the Sputum, Urine, and Sacral Wound Culture) * 09/20/17: Opti dressing placed by resident, sample taken by resident to see if sacral wound is healing/treated with IV abx coverage * 09/22/17: Dressing was changed yesterday by the resident, granulation tissue, procalcitonin improved from 8-->5. * 09/23/17: Patient's repeat sacral wound (09/20/17): VRE and Reny Albicans. c/w IV abx Status: Acute (16) Elevated LFTs Assessment and Plan: * Have normalized * Currently on Diflucan since 09/13/17 * Will restart patient's statin (17). Hx Constipation * Monitor bowel movement * 09/20/17; discussed with ICU nurse, patient had bowel movement today and yesterday (18). Hyponatremia * 09/19/17: at 127 monitor for now (19). Prophylactic measure Assessment and Plan: * Pepcid 20mg PO daily * Start Eliquis 2.5mg PO BID * s/p peg placement 08/25 * s/p trachesostomy 08/22 * s/p Permcath placement 08/22 removal Kurtis catheter * s/p right posterior chest tube 08/19-->removed 08/24 * s/p Right Arm PICC 08/26 * Passy Flex Trach placed 09/15 * (Jovita Serrano): -->number provided to the nurse- ->consented for peg placement; discussed about LTAC 08/26 * Spoke with Dr. Pickard, PMD regarding patient's hospitalization up until this point 08/26 Disposition: * Awaiting from case management in regards to discharge to subacute rehab * Patient is currently on IV abx for sacral wound and urinary tract infection; monitor sacral wound
[2017-09-23] MEDS: Lactobacillus Acidophilus 500 MU Cap PO SCH ×2 (10:43→18:28)
[2017-09-23] MEDS: Insulin Detemir 100 units/ml Vial (Levemir) SC SCH ×2 (10:43→21:51)
--- NOTE | 2017-09-23 13:06 | CP.PCM.PN ---
Subjective - Date & Time of Evaluation Date of Evaluation: 09/23/17 Time of Evaluation: 13:04 - Subjective Subjective: sleepy as before maintained on trach collar for dialysis today BP has stabilized cannot obtain further ROS Objective - Vital Signs/Intake and Output Vital Signs (last 24 hours): Temp Pulse Resp BP Pulse Ox 98.3 F 81 21 149/62 98 09/23/17 12:00 09/23/17 12:09 09/23/17 12:09 09/23/17 12:09 09/23/17 12:09 Intake and Output: 09/23/17 09/23/17 06:59 18:59 Intake Total 600 500 Output Total 0 0 Balance 600 500 - Medications Medications: Current Medications Acetylcysteine (Acetylcysteine 20%) 4 ml INH RQ6 [facility] Last Admin: 09/23/17 07:53 Dose: 4 ml Albuterol/Ipratropium (Duoneb 3 Mg/0.5 Mg (3 Ml) Ud) 3 ml INH RQ6 [facility] Last Admin: 09/23/17 07:53 Dose: 3 ml Apixaban (Eliquis) 2.5 mg PO BID [facility] Last Admin: 09/23/17 10:42 Dose: 2.5 mg Aspirin (Aspirin Chewable) 81 mg PO DAILY [facility] Last Admin: 09/23/17 10:42 Dose: 81 mg Calcium Acetate (Phoslo) 1,334 mg GT TID [facility] Last Admin: 09/23/17 10:42 Dose: 1,334 mg Epoetin Chencho (Procrit) 10,000 unit IV MWF [facility] Last Admin: 09/21/17 10:14 Dose: 10,000 unit Famotidine (Pepcid) 20 mg PO DAILY [facility] Last Admin: 09/23/17 10:45 Dose: 20 mg Fluconazole (Diflucan) 200 mg PO DAILY [facility] Last Admin: 09/23/17 10:47 Dose: 200 mg Heparin Sodium (Porcine) (Heparin) 3,700 units IVP MWF [facility] Tigecycline 50 mg/ Dextrose 100 mls @ 100 mls/hr IVPB Q12H [facility] Last Admin: 09/23/17 12:37 Dose: 100 mls/hr Insulin Aspart (Novolog) 0 unit SC Q6 [facility] PRN Reason: Protocol Last Admin: 09/23/17 07:10 Dose: Not Given Insulin Detemir (Levemir) 43 unit SC Q12 [facility] Last Admin: 09/23/17 10:43 Dose: 43 unit Lactobacillus Acidophilus (Bacid Acidophilus) 1 cap PO BID [facility] Last Admin: 09/23/17 10:43 Dose: 1 cap Metoprolol Tartrate (Lopressor) 50 mg PO BID [facility] Last Admin: 09/23/17 10:42 Dose: 50 mg Rosuvastatin Calcium (Crestor) 10 mg PO HS [facility] Last Admin: 08/26/17 22:41 Dose: 10 mg - Labs Labs: 09/22/17 06:25 09/22/17 06:25 PT 13.9 SECONDS (9.7-12.2) H 08/24/17 06:08 INR 1.2 08/24/17 06:08 APTT 55 SECONDS (21-34) H D 08/17/17 06:12 - Constitutional Appears: No Acute Distress, Confused, Chronically Ill - Head Exam Head Exam: ATRAUMATIC, NORMAL INSPECTION - Eye Exam Eye Exam: EOMI, Normal appearance - Neck Exam Neck Exam: Normal Inspection. absent: Tenderness - Respiratory Exam Respiratory Exam: Clear to Ausculation Bilateral, NORMAL BREATHING PATTERN - Cardiovascular Exam Cardiovascular Exam: REGULAR RHYTHM, +S1 - GI/Abdominal Exam GI & Abdominal Exam: Soft. absent: Tenderness - Extremities Exam Extremities Exam: Normal Inspection. absent: Tenderness - Neurological Exam Neurological Exam: Alert, CN II-XII Intact - Skin Skin Exam: Dry, Warm Assessment and Plan (1) Acute on chronic renal failure Status: Resolved (2) CAD (coronary artery disease) Status: Chronic (3) CHF exacerbation Status: Chronic (4) Type 2 diabetes mellitus with diabetic nephropathy Status: Acute (5) Cardiorenal disease Status: Acute (6) ESRD (end stage renal disease) Status: Acute - Assessment and Plan (Free Text) Plan: Dialysis MWF schedule Same ESAs Try increase UF goal slightly
[2017-09-23] MEDS: Epoetin Alfa 10,000 unit/ml Dialysis IV SCH (15:18)
[2017-09-24] MEDS: Tigecycline 50 MG in Dextrose 5% In Water 100 ML IVPB SCH ×3 (00:47→23:06)
[2017-09-24] MEDS: (Novolog) Insulin Aspart, Recombinant 100 u/ml 10 ml vial SC SCH ×4 (00:47→18:15)
[2017-09-24] MEDS: Acetylcysteine 20% Inhal Soln (4ml) INH SCH ×3 (01:10→14:23)
--- NOTE | 2017-09-24 03:11 | CP.PCM.PN ---
<Sina White - Last Filed: 09/24/17 03:06> Subjective - Date & Time of Evaluation Date of Evaluation: 09/24/17 Time of Evaluation: 03:06 - Subjective Subjective: Medicine Progress Note HPI: Patient seen and examined at bedside. More awake/aware. Smiles. NAD. ROS unattainable. Objective - Vital Signs/Intake and Output Vital Signs (last 24 hours): Temp Pulse Resp BP Pulse Ox 98.4 F 85 12 113/35 L 71 L 09/24/17 00:00 09/24/17 02:09 09/24/17 02:09 09/24/17 02:09 09/24/17 02:09 Intake and Output: 09/23/17 09/24/17 18:59 06:59 Intake Total 700 400 Output Total 0 0 Balance 700 400 - Medications Medications: Current Medications Acetylcysteine (Acetylcysteine 20%) 4 ml INH RQ6 [facility] Last Admin: 09/24/17 01:10 Dose: Not Given Apixaban (Eliquis) 2.5 mg PO BID [facility] Last Admin: 09/23/17 18:28 Dose: 2.5 mg Aspirin (Aspirin Chewable) 81 mg PO DAILY [facility] Calcium Acetate (Phoslo) 1,334 mg GT TID [facility] Last Admin: 09/23/17 18:28 Dose: 1,334 mg Epoetin Chen[place] (Procrit) [facility] Last Admin: 09/23/17 15:18 Dose: 10,000 unit Famotidine (Pepcid) 20 mg PO DAILY [facility] Last Admin: 09/23/17 10:45 Dose: 20 mg Fluconazole (Diflucan) 200 mg PO DAILY [facility] Last Admin: 09/23/17 10:47 Dose: 200 mg Heparin Sodium (Porcine) (Heparin) 3,700 units IVP MWF [facility] Last Admin: 09/23/17 18:27 Dose: 3,700 units Tigecycline 50 mg/ Dextrose 100 mls @ 100 mls/hr IVPB Q12H [facility] Last Admin: 09/24/17 00:47 Dose: 100 mls/hr Insulin Aspart (Novolog) 0 unit SC Q6 [facility] PRN Reason: Protocol Last Admin: 09/24/17 00:47 Dose: 2 unit Insulin Detemir (Levemir) 43 unit SC Q12 [facility] Last Admin: 09/23/17 21:51 Dose: 43 unit Lactobacillus Acidophilus (Bacid Acidophilus) 1 cap PO BID [facility] Last Admin: 09/23/17 18:28 Dose: 1 cap Metoprolol Tartrate (Lopressor) 50 mg PO BID [facility] Last Admin: 09/23/17 18:27 Dose: 50 mg Rosuvastatin Calcium (Crestor) 10 mg PO HS [facility] Last Admin: 08/26/17 22:41 Dose: 10 mg - Labs Labs: 09/22/17 06:25 09/22/17 06:25 PT 13.9 SECONDS (9.7-12.2) H 08/24/17 06:08 INR 1.2 08/24/17 06:08 APTT 55 SECONDS (21-34) H D 08/17/17 06:12 - Additional Findings Additional findings: - Constitutional Appears: Chronically Ill - Head Exam Head Exam: ATRAUMATIC, NORMAL INSPECTION, NORMOCEPHALIC - ENT Exam ENT Exam: Mucous Membranes Moist - Neck Exam Additional comments: trach - Respiratory Exam Respiratory Exam: Clear to Ausculation Bilateral, NORMAL BREATHING PATTERN - GI/Abdominal Exam GI & Abdominal Exam: Soft, Normal Bowel Sounds. absent: Distended, Tenderness - Extremities Exam Extremities Exam: absent: Joint Swelling, Tenderness - Back Exam Additional comments: 10x10 sacral decub stage 3 clean moist base, no necrotic tissue. Dressing changed with optifoam/medihoney. - Neurological Exam Neurological Exam: Alert, Awake - Skin Skin Exam: Dry, Normal Color, Warm. absent: Intact Assessment and Plan - Assessment and Plan (Free Text) Assessment: (1) Acute Respiratory Failure ARDS Cardiac Arrest Pulmonary Edema Nonstemi Assessment and Plan: * Code Blue on 08/10: asystole, cardiopulmonary resuscitative measures initiated , requiring 3 epis, bicarbonate, ROSC achieved and intubated and brought to the ICU for further management; Patient in the ICU from 08/10 until present. * Pulmonary: Dr Mena (Dr. Jeffers covering until 09/04/17)-->help appreciated * Cardiology: Dr. Cortés on board-->help appreciated * GI (Dr. Wills) on board-->help appreciated * S/P Tracheostomy 08/22 * S/P Peg tube placement 08/25 * s/p insertion of right posterior chest tube 08/19-->removed 08/24/17 * There was consideration for possible thoracentesis of left side pleural effusion, evaluated by IR, there is no fluid to drain per Dr. Gross * Chest xray (08/26): right arm PICC is seen with the tip of distal subclavian vein. PICC may be used * Per cardiology, * Restart Aspirin 81mg PO daily * Patient does not need Plavix at this time * Recommend for Eliquis 2.5mg PO BID for atrial flutter * 08/27: patient is pending LTAC, he went eventually need cardiac catheterization when he has stabilized. Held statin secondary to elevated LFTs. Discussed with Dr. Cortés, lowered Amiodarone 200mg PO daily * 08/28: patient is pending LTAC, he went eventually need cardiac catheterization when he has stabilized. Liver function tests improving * 08/29: Sandblaster Paint Sprayer Nehal has sent request to insurance for authorization for LTAC-->pending * 09/06: pending social work/case management approval for LTAC * 09/07: pending social work/case management approval for LTAC * 09/08: Unable to get approval for LTAC; pending other options * 09/09: Transferred from step-down ICU to the floors * 09/13: Trasnferred back to ICU S/P Rapid Response for low blood pressure * 09/14: Currently on Acetylcysteine 20 % Neb Q6H and Duoneb Q6H * 09/15: Passy [place] Trach placed by Mailroom Assistant (2) Abnormal Stress Test History of AICD History of Coronary Artery Disease Assessment and Plan: * Cardiology (Dr. Cortés) on board-->help appreciated * TSH: 1.16; T4: 1.53 * Echocardiogram (08/08/17): left ventricle systolic function is severely impaired. EF: 25-30%; global hypokinesis of left ventricle mild aortic regurgitation. Mitral regurgitation is moderate. Moderate-severe pulmonary hypertension * Plan was for cardiac catheterization; delayed due to acute renal failure; Attempted gentle hydration and mucomyst on 08/09 to optimize prior to cath * On 08/10, patient was in asystole, ACLS protocol, ROSC achieved, intubated and transfered to the ICU. Patient in acute pulmonary edema. * Patient hospitalized in the ICU since 08/10/17 to present. * Medications: * Aspirin 81mg PO daily * Plavix d/c by cardiology * Lopressor 50mg PO bid * d/c Crestor 10mg POqHS secondary to rise in LFTS 08/27--->monitor LFTs daily * ARB d/c secondary to acute renal failure * 08/27: patient is pending LTAC, he went eventually need cardiac catheterization when he has stabilized. Held statin secondary to elevated LFTs. Discussed with Dr. Cortés, lowered Amiodarone 200mg PO daily * 08/28: He will eventually need cardiac catheterization when he has stabilized. Liver function tests improving. Statin is on hold (3) Atrial flutter Assessment and Plan: * Cardiology (Dr. Cortés) on board-->help appreciated * Refractory to Lopressor/Cardizem IVP * Eliquis 2.5mg PO bid * Amiodarone bolus-->Amiodarine drip on 08/24-->converted to Amiodarone 200mg PO TID on 08/26 and this was decreased to 200 mg 1x/day due to increased LFTs * 08/27: Discussed with Dr. Cortés, will lower Amiodarone 200mg PO daily and monitor LFTs. Statin held and tylenol d/c * 08/29: patient is pending LTAC, he will eventually need cardiac catheterization when he has stabilized. Liver function tests improving. Statin is on hold due to the elevated LFTs * 08/30: Cardiology discontinued the Amiodarone * 09/07: Held eliquis; will need to resume * 09/09: Eliquis resumed, off Amiodarone Status: Acute (4) Acute on Chronic Systolic CHF exacerbation Assessment and Plan: * Cardiology (Dr. Cortés) on board-->help appreciated * Transferred to the ICU on 08/10 following cardiac arrest and intubation. * Echocardiogram (08/08/17): left ventricular systolic function is severely impaired. EF: 25-30%; global hypokinesis of left ventricle mild aortic regurgitation. Mitral regurgitation is moderate. Moderate-severe pulmonary hypertension * Medications: * Aspirin 81mg PO daily * Plavix d/c by cardiology * Lopressor 50mg PO bid * d/c Crestor 10mg POqHS on 08/27 secondary to rise in LFTs * ARB d/c secondary to acute renal failure Status: Acute (5) Leukocytosis Assessment and Plan: * Patient's white count downtrending * Pleural Fluid 08/19/17 did not show any growth * Blood cultures (08/26): no growth X5 days * UA and urine culture (08/27): Urine Culture showed Yeast Species. * Patient has elevated LFTs-->did not start anti-fungal in light of LFTs New: * 09/05/17 Blood: gram positive cocci-->pending speciation * 09/05/17 Blood: no growth after 4 days * 09/07/17 Legionella Culture: negative * 09/07/17 Mycobacteria: negative * 09/07/17 Sputum: Enterocloace Bacter; yeast * 09/07/17 Blood: negative X 48 hours * 09/07/17 Blood: negative X 48 hours * 09/06: stool culture pending; has not had diarrhea or bowel movement * 09/07: Dr. Zimmer (covering Dr. Lawrence) to see the patient given elevated procalcitonin * Blood Culture 09/13/17 is negative to date and Urine Culture 09/13/17 showed Yeast Species * 09/14: Could this be secondary to the Septic Shock? Secondary to Osteomyelitis of the Sacrum? 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) and Meropenem 500 mg IV Q8H (09/13/17 through 09/16/17), Diflucan 200 mg PO 1x/day (09/13/17), Bactrim 10 mL PO Q12H (09/12/17 through 09/16/17), Tigecycline 50 mg IV Q12H (09/16/17 started because of VRE on Sacrum Wound Culture 09/14/17) * ESR 09/14/17 elevated at 89 * Bone Scan performed 09/17/17 to check for Osteomyelitis at the Sacrum: results are pending * Meropenem 500 mg IV Q12H (09/13/17 through 09/16/17: which will cover the Enterbacter in the Sputum 09/07/17 and the possibility of Sacral Osteomyelitis) * Antibiotics as of 09/17/17:Tigecycline (09/16/17: which will cover the VRE in Sacral Wound Culture 09/14/17 and the possibility of Sacral Osteomyelitis) and Diflucan 200 mg PO 1x/day (09/13/17: which will cover with Yeast in the Sputum, Urine, and Sacral Wound Culture) Status: Acute (6) Pneumonia Assessment and Plan: * Pulmonary (Dr. Mena) on board-->help appreciated; Dr. Jeffers covering while Dr. Mena away * Infectious Disease (Dr. Lawrence)-->help appreciated * Chest xray (08/26): right arm PICC is seen with the tip of distal subclavian vein. PICC may be used * Rapid A strep, Influenza A and B studies, Urine Legionella, Mycoplasma studies = Negative * Florastor 250mg PO bid * 08/07/17: +Strep Pneumoniae in the urine * Meropenem 500mg IV Q 8 hours (08/14/17 through 08/18/17) and Zosyn 2.25 mg IV Q6H (08/13/17 through 08/18/17) * Cefepime 1 gm IV Q24H: started on 08/19/17 and was discontinued by ID Dr. Lawrence on 08/30/17: monitor vitals and labs * s/p right posterior chest tube 08/19-08/24 * Sputum Culture 08/19/17 shows No growth * Pleural fluid 08/19/17: No growth * 09/07/17 Sputum: Enterocloace Bacter and Yeast Species: See Antibiotic treatment in previous Assessment and Plan * Sputum 09/10/17 shows NO AFB Status: Acute (7) HTN (hypertension) Assessment and Plan: * Lopressor 50mg PO bid * Lisinopril 5mg PO daily Status: Chronic (8) CKD (chronic kidney disease) on Dialysis Assessment and Plan: * Dr. Miranda (nephrology) consulted on the case * Hx of CKD-->Started on dialysis 08/15/17 * Kurtis catheter placed and removed 08/22 * s/p Right Chest Permcath 08/22 * Patient is on dialysis M-W-F; oliguric * Phoslo 1334mg GT TID * Epoetin 10,000 unit IV MWF Status: Acute (9) Diabetes mellitus Assessment and Plan: * Accuchecks Q6H * HgbA1c 8.4 * Started peg feedings on 08/26/17 * Nepro-->50 ml/hour but this was held 09/13/17 due suspicion of Bowel Obstruction as NO bowel Movement since 09/07/17. This was restarted on after NO obstruction was observed on Obstruction Series 09/13/17 and after multiple bowel movement s/p Fleet Enema 09/13/17 (10) HLD (hyperlipidemia) Assessment and Plan: * 08/27: held Crestor 10 mg PO HS secondary to rise in LFTs * 08/29: Liver function tests improving; waiting to restart statin Status: Chronic (11) Anemia Assessment and Plan: * Heme-oncology (Dr. Giles bender) on board-->help appreciated * Likely iron deficiency anemia based on prior admissions * Ferritin 27.4, Iron 22, TIBC 322, % Saturation 7 * Ferric Sodium Gluconate 125mg IVPB daily (active 08/08-08/16) * Procrit 10,000 units M-W- * Monitor Hgb/Hct: stable Status: Chronic (12) History of DVT (deep vein thrombosis) Assessment and Plan: * Patient was previously on Eliquis for a prior history of DVT. * Repeat dopplers 08/09/17 are negative for DVT * Off Heparin Drip 08/17/17 * Started Eliquis 2.5mg PO BID for atrial flutter and history of DVT Status: Chronic (13) UTI Assessment and Plan: * Infectious disease (Dr. Lawrence) on board-->help appreciated * Exchange jaquez out and repeat urine cultures * Urine Culture 08/12/17 showed Gram Negative Rods: NO identification and NO sensitivities were performed * Meropenem 500mg IV Q 12hours (active since 08/14/17 through 08/18/17) to cover for UTI per ID * Repeat Urine Culture 08/18/17 shows NO growth * 08/25: reculture in light of leukocytosis * 08/27: pending urine studies * 08/30: Urine Culture 08/27/17 showed Yeast Species but no antifungal at that time secondary to recent history of Elevated LFTs * Urine Culture 09/13/17 showed Yeast Species: he is on Diflucan Status: Chronic (14) Confusion; Alzheimer's Dementia Assessment and Plan: * Per daughter, patient has been getting bouts of confusion over the past year but appears at baseline. Patient has not seen formal neurology as outpatient per daughter. Per , prior to event, noted Alzheimers' disease dx one year ago * CT head w/o contrast (08/10/17):acute os subacute lacune infarct is not excluded in the left basal ganglia inferiorly with definitive chronic lacune identified in the right basal ganglia superiorly. No acute or subacute lobar brain infarction is appreciable by standard CT criteria. Mild age-related neuro degenerative changes are identifed. No acute intracranial hemorrhage or mass is identified throughout * 08/26: Off Sedation-->patient moves all extremities randomly but does not follow directions * 08/27: off sedation-->patient is very calm, smiles at his * 08/28: off sedation-->patient is very calm Status: Chronic (15) Unstageable Sacral Ulcer, Left Ear Auricle Ulcer, Right Heal Ulcer Assessment and Plan: * Wound care on board * WOUND CARE NOTE (08/26)-->Pt with a sacral unstageable being treated with medihoney. No changes to dimensions at this time. Also, pt favoring Left side of head and has developed a 1x1 serous filled blister on his left ear. Primary nurse placed duoderm on the ear. Wound care nurse left duoderm in place , and recommends leaving it on until it falls off on its own. Pt has been NPO for several days, new peg inserted yesterday. Will be starting glucerna tube feedings later today. Albumin 3.3 * Turn q 2 hours * medihoney on unstageable ulcer * duoderm on left ear aurical ulcer: this is healed as of 09/15/17 * Prevalon Boots for Right Heal Blister 09/13/17 * 09/02/17: examined with Wound Care Nurse Emeka Samuel and periphery of the Sacral Wound is pink with some bleeding however center is still black and therefore still unstageable. Continue spray with Cavelon followed by thick coating with MediHoney followed by covering with OptiFoam once a day. * 09/03/17: Change of sacral ulcer dressing was performed by me with assitance from Nurse Lyman * 09/04/17: 09/03/17: Change of sacral ulcer dressing was performed by me with assistance from ALEXANDRA Unger * Per wound care note (09/07): sacral ulcer is stable per wound care nurse * 09/14/17: Sacral Ulcer is unstageable and area of blackness fills entire circumference. General Surgery consult placed to see if debridement is necessary. Continue Cavelon Florien followed by paulina thick coating of MediHoney followed by covering with OptiFoam. * 09/15/17: Surgery Team debrided Sacral Ulcer and Bone Scan will need to be followed up which was performed 09/17/17 * 09/18/17: With the help of Nurse Guzman, applied Cavelon Florien followed by thick coating of MediHoney followed by covering with OptiFoam * 09/19/17: Dressing for Sacral Ulcer already changed before my exam. Explained to Nurse Megan that best application of MediHoney would be to cover the padding of the OptiFoam with it and then apply the OptiFoam to the ulcer. Status: Acute (16) Elevated LFTs Assessment and Plan: * 08/27: Yina * Discussed with cardiology-->changed amiodarone 200mg PO tid to amiodaron 200mg PO daily * D/C tylenol * Held Statin * patient is also on Rocephin to cover for pneumonia * Will not start antifungal * 08/29: starting to down trending since change in amiodarone dose; awaiting to restart statin * 08/30: continues to trend down. Amiodarone was discontinued * 09/01: AST, ALT, Alk Phos still elevated but stable * 09/02: AST, ALT, Alk Phos still elevated but stable * 09/03: LFTs stable * 09/04: LFTs stable Status: Acute (17). Hx Constipation * Monitor bowel movement * Multiple bowel movements on 09/13/17 and 09/14/17 that are well formed s/p Fleet Enema on 09/13/17 * 09/15/17: NO bowel movement * 09/16/17: Soft pasty bowel movement * 09/17/17: Soft pasty bowel movement * 09/18/17: NO bowel movement * 09/19/17: ordered one dose of Lactulose 20 gm via PEG as still no bowel movement (18). Hyponatremia * 09/19/17: at 127 monitor for now (19). Prophylactic measure Assessment and Plan: * Pepcid 20mg PO daily * Start Eliquis 2.5mg PO BID * s/p peg placement 08/25 * s/p trachesostomy 08/22 * s/p Permcath placement 08/22 removal Kurtis catheter * s/p right posterior chest tube 08/19-->removed 08/24 * s/p Right Arm PICC 08/26 * (Jovita Serrano): -->number provided to the nurse- ->consented for peg placement; discussed about LTAC 08/26 * Spoke with Dr. Pickard, MARIAJOSE regarding patient's hospitalization up until this point 08/2609/01/17: Dr. Cullen Barth spoke with the patient's [place] with the assistance of Nurse Beth on 3 tower (as multiple attempts of using [employer] indicated that all of the [place] translators were busy) and explained all of the patient's diagnosises. 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 Her ultimate wish is to take patient to [facility] where their children live. I explained to patient that I would not know how that would be coordinated but that the Social Workers/Bar Assistant at LTAC may be of assistance in this regard. I also informed her that I am not aware of any insurance company that would finance this request. She understands that the patient is awaiting insurance approval for LTAC. 09/01/17 and 09/02/17: Dr. Cullen Barth spoke with Top Inventory Control Executive Demetria and we are still awaiting insurance authorization for LTAC placement. 09/05/17: Spoke with nehal, forensic social worker, wean trials sent to LTAC pending approval no word yet regarding approval. Ordered for repeat cultures given uptrend in white count. 09/06/17: pending repeat cultures in light of elevated procalcitonin; ID recommended to reculture. Note: patients PICC lined had clogged ports. Red port remains clogged in spite of cath rafaela. Blue port improved after cath rafaela. Possible may need to remove line to r/o infected line. Strong suspicion due to patient's pneumonia given he has thick secretions. 09/07/17: Infectious disease. pending repeat cultures in light of elevated procalcitonin; Note: patients PICC lined had clogged ports. Red port remains clogged in spite of cath rafaela. Blue port improved after cath rafaela. Hip xray negative for acute fracture. There are no noted falls. 09/08/17: Patient denied for LTAC; awaiting for other options from case management/social work. Resident Daniel spoke with Dr. Cortés, patient be transferred under regular bed, when bed is available. Infectious disease on board; Patient started on IV Vancomycin in light of + blood culture. Pending chest xray. 09/09/17: Patient denied for LTAC; awaiting for other options from case management/social work with kamlesh verdin support. Patient started on IV Vancomycin MWF in light of + blood culture. Pending chest xray. F/U sputum with ID. f/u latest blood cultures. 09/13/17: Rapid response for low blood pressure and elevated WBC likely Septic Shock. Started on Levophed, added Meropenem to Vancomycin and 1 dose of Gentamycin given after speaking with ID. Ordered Obstruction Series as no bowel movement since 09/07/17. F/U Shock Panel. Discussed with ICU Resident to arrange for Change of Right Arm Midline line and Trach Collar. 09/14/17: Will await results of Blood Culture 09/13/17 to determine if the Right Arm Midline, Right Chest Perm Cath, and Trach Collar needs to be changed. Spoke with Top Inventory Control Executive Demetria in ICU and patient information has been sent to [facility] (they accept patients on Trach) and she is awaiting to hear back from them before submitting approval request to insurance company. 09/15/17: Passy Flex Trach placed by Mailroom Assistant. Surgical Team for debridement of Sacral Ulcer. Spoke with patient's ([place] DEM[place] Denisa [id number]) and explained/updated her on patient condition and obtained consent for sacral ulcer debridement. 09/16/17: Still awaiting performance of Sacral Bone Scan 09/17/17: Bone Scan performed and awaiting results 09/18/17: Awaiting Bone Scan Report 09/19/17: Still awaiting Bone Scan Report. Spoke again with Top Inventory Control Executive Demetria and NO word yet from Nursing [facility] (they do treat patients with Trachs). 09/20/17: Repeat Wound culture and urine culture sent. Dressing changed with medihoney and optifoam. No other changes at this time. Still waiting for approval for [facility] 09/21/17: No changes at this time. Will continue to change wound dressing Q3D and follow up with case management for for shelter transfer. 09/22/17: Dressing changed today with medihoney. Healing appropriately. Talked to case management. Still no update from [facility] transfer. Bone scan negative for osteo. Repeat wound cultures continue to grow Enterococcus. Will follow up sensitivities <Tadeo Stoll - Last Filed: 09/28/17 15:17> Objective - Vital Signs/Intake and Output Vital Signs (last 24 hours): Temp Pulse Resp BP Pulse Ox 98.6 F 98 H 20 157/80 H 95 09/28/17 14:09 09/28/17 14:09 09/28/17 14:09 09/28/17 14:09 09/28/17 14:09 Intake and Output: 09/28/17 09/28/17 06:59 18:59 Intake Total 500 Balance 500 - Medications Medications: Current Medications Acetylcysteine (Acetylcysteine 20%) 4 ml INH RQ6 [facility] Last Admin: 09/28/17 13:13 Dose: Not Given Albuterol/Ipratropium (Duoneb 3 Mg/0.5 Mg (3 Ml) Ud) 3 ml INH RQ6 [facility] Last Admin: 09/28/17 13:13 Dose: Not Given Apixaban (Eliquis) 2.5 mg PO BID [facility] Last Admin: 09/28/17 10:00 Dose: Not Given Aspirin (Aspirin Chewable) 81 mg PO DAILY [facility] Last Admin: 09/28/17 13:35 Dose: 81 mg Calcium Acetate (Phoslo) 1,334 mg GT TID [facility] Last Admin: 09/28/17 13:35 Dose: 1,334 mg Famotidine (Pepcid) 20 mg PO DAILY [facility] Last Admin: 09/28/17 13:35 Dose: 20 mg Fluconazole (Diflucan) 100 mg PO DAILY [facility] Last Admin: 09/28/17 13:35 Dose: 100 mg Heparin Sodium (Porcine) (Heparin) 3,700 units IVP MWF [facility] Last Admin: 09/28/17 12:47 Dose: 3,700 units Insulin Aspart (Novolog) 0 unit SC Q6 [facility] PRN Reason: Protocol Last Admin: 09/28/17 13:35 Dose: 1 unit Rosuvastatin Calcium (Crestor) 10 mg PO HS [facility] Last Admin: 08/26/17 22:41 Dose: 10 mg Saccharomyces Boulardii (Florastor) 250 mg PO BID [facility] Last Admin: 09/28/17 10:00 Dose: Not Given - Labs Labs: 09/28/17 07:13 09/28/17 07:13 PT 13.9 SECONDS (9.7-12.2) H 08/24/17 06:08 INR 1.2 08/24/17 06:08 APTT 55 SECONDS (21-34) H D 08/17/17 06:12 Attending/Attestation - Attestation I have personally seen and examined this patient.: Yes I have fully participated in the care of the patient.: Yes I have reviewed all pertinent clinical information, including history, physical exam and plan: Yes Notes (Text): Acute Respiratory Failure ARDS Cardiac Arrest Pulmonary Edema Nonstemi
[2017-09-24 06:33] LABS: BASO # 0.1 K/uL (0.0-0.2); BASO % 0.6 % (0.0-2.0); EOS # 0.6 K/uL (0.0-0.7); EOS % 3.6 % (0.0-4.0); HEMATOCRIT 31.4 % (35.0-51.0); LYMPH # 2.3 K/uL (1.0-4.3); LYMPH % 14.6 % (20.0-40.0); MEAN CORPUSCULAR HEMOGLOBIN 24.1 pg (27.0-31.0); MEAN CORPUSCULAR HGB CONC 30.5 g/dL (33.0-37.0); MEAN PLATELET VOLUME 8.1 fL (7.2-11.7); MONO # 0.9 K/uL (0.0-0.8); RED CELL DISTRIBUTION WIDTH 25.2 % (11.5-14.5); WHITE BLOOD COUNT 15.6 K/uL (4.8-10.8)
[2017-09-24 06:46] LABS: POTASSIUM 3.4 mmol/L (3.6-5.2)
[2017-09-24 06:48] LABS: ALB/GLOB RATIO 0.7 (1.0-2.1); BILIRUBIN,TOTAL 0.7 mg/dL (0.2-1.3); TOTAL PROTEIN 6.2 g/dL (6.3-8.3)
[2017-09-24 06:49] LABS: CALCIUM 8.1 mg/dl (8.6-10.4); MAGNESIUM 2.2 mg/dL (1.6-2.3)
--- NOTE | 2017-09-24 08:13 | CP.PCM.PN ---
Subjective - Date & Time of Evaluation Date of Evaluation: 09/23/17 Time of Evaluation: 07:05 - Subjective Subjective: Patient seen and evaluated Denies chest pain and dyspnea Physical Examination - Constitutional Appears: Non-toxic, No Acute Distress - Head Exam Head Exam: ATRAUMATIC - Eye Exam Eye Exam: EOMI - Neck Exam Neck Exam: Full ROM - Cardiovascular Exam Cardiovascular Exam: Irregular Rhythm, +S1, +S2 - GI/Abdominal Exam GI & Abdominal Exam: Soft, Normal Bowel Sounds - Extremities Exam Extremities Exam: Full ROM - Neurological Exam Neurological Exam: Altered - Psychiatric Exam Psychiatric exam: Flat Affect - Skin Skin Exam: Dry, Warm Objective - Vital Signs/Intake and Output Vital Signs (last 24 hours): Temp Pulse Resp BP Pulse Ox 98.4 F 76 21 108/43 L 98 09/24/17 04:00 09/24/17 07:09 09/24/17 07:09 09/24/17 07:09 09/24/17 07:09 Intake and Output: 09/24/17 09/24/17 06:59 18:59 Intake Total 700 Output Total 0 Balance 700 - Medications Medications: Current Medications Acetylcysteine (Acetylcysteine 20%) 4 ml INH RQ6 [facility] Last Admin: 09/24/17 01:10 Dose: Not Given Apixaban (Eliquis) 2.5 mg PO BID [facility] Last Admin: 09/23/17 18:28 Dose: 2.5 mg Aspirin (Aspirin Chewable) 81 mg PO DAILY [facility] Calcium Acetate (Phoslo) 1,334 mg GT TID [facility] Last Admin: 09/23/17 18:28 Dose: 1,334 mg Epoetin Chencho (Procrit) 10,000 unit IV [facility] [place] Last Admin: 09/23/17 15:18 Dose: 10,000 unit Famotidine (Pepcid) 20 mg PO DAILY [facility] Last Admin: 09/23/17 10:45 Dose: 20 mg Fluconazole (Diflucan) 200 mg PO DAILY [facility] Last Admin: 09/23/17 10:47 Dose: 200 mg Heparin Sodium (Porcine) (Heparin) 3,700 units IVP MWF [facility] Last Admin: 09/23/17 18:27 Dose: 3,700 units Tigecycline 50 mg/ Dextrose 100 mls @ 100 mls/hr IVPB Q12H [facility] Last Admin: 09/24/17 00:47 Dose: 100 mls/hr Insulin Aspart (Novolog) 0 unit SC Q6 [facility] PRN Reason: Protocol Last Admin: 09/24/17 06:00 Dose: Not Given Insulin Detemir (Levemir) 43 unit SC Q12 [facility] Last Admin: 09/23/17 21:51 Dose: 43 unit Lactobacillus Acidophilus (Bacid Acidophilus) 1 cap PO BID [facility] Last Admin: 09/23/17 18:28 Dose: 1 cap Metoprolol Tartrate (Lopressor) 50 mg PO BID [facility] Last Admin: 09/23/17 18:27 Dose: 50 mg Rosuvastatin Calcium (Crestor) 10 mg PO HS [facility] Last Admin: 08/26/17 22:41 Dose: 10 mg - Labs Labs: 09/24/17 06:27 09/24/17 06:27 PT 13.9 SECONDS (9.7-12.2) H 08/24/17 06:08 INR 1.2 08/24/17 06:08 APTT 55 SECONDS (21-34) H D 08/17/17 06:12 Assessment and Plan - Assessment and Plan (Free Text) Assessment: SIRS Hypotensive event with tachycardia yesterday Considerations for sacral wound. Concepcion cultures- Wound cultures grew out Vancomycin Resistant Enteroccoci, Urine cuture- yeast species Has undergone wound debridement per Surgery Atrial Fibrillation Intermittent Rate controlled. On Metoprolol 50 mg PO BID, Eliquis 2.5 mg PO BID CAD, chest pain -No current plans for cardiac cath (acute respiratory failure and elevated Cr) , history of abnormal stress test -Elevated Troponin likely due to chest compressions during cardiac arrest 08/10 -No acute ST changes on EKG -Continue ASA, Crestor, Metoprolol. -Echocardiogram from 08/08/17 showed left ventricle systolic function is severely impaired. EF: 25-30%; global hypokinesis of LV mild AR. MR is moderate. Moderate-severe pulmonary hypertension Systolic CHF exacerbation -CXR 09/09: Diminished bilateral basilar airspace disease; stable cardiomegaly -BNP [id number] on 08/06/17 -Continue ASA, Crestor, Metoprolol -Echocardiogram from 08/08/17 showed left ventricle systolic function is severely impaired. EF: 25-30%; global hypokinesis of LV mild AR. MR is moderate. Moderate-severe pulmonary hypertesnion Dobutamine discontinued in light of atrial flutter-type episodes Diabetes Mellitus ISS Continue to monitor ESRD on HD Currently on HD On Procrit and Phoslo Nephro on the case Prophylaxis Pepcid 20 mg PO daily Eliquis 2.5 mg PO BID (Renal precautions) Disposition Awaiting Transfer to LTAC
--- NOTE | 2017-09-24 09:52 | CP.PCM.PN ---
Subjective - Date & Time of Evaluation Date of Evaluation: 09/24/17 Time of Evaluation: 09:50 - Subjective Subjective: pt seen and examined comfortable, on trach collar non verbal had HD yesterday tolerating tube feeds no events overnight ROS- unable to obtain as patient non verbal Objective - Vital Signs/Intake and Output Vital Signs (last 24 hours): Temp Pulse Resp BP Pulse Ox 98.4 F 76 21 108/43 L 98 09/24/17 04:00 09/24/17 07:09 09/24/17 07:09 09/24/17 07:09 09/24/17 07:09 Intake and Output: 09/24/17 09/24/17 06:59 18:59 Intake Total 700 Output Total 0 Balance 700 - Medications Medications: Current Medications Acetylcysteine (Acetylcysteine 20%) 4 ml INH RQ6 [facility] Last Admin: 09/24/17 09:44 Dose: Not Given Apixaban (Eliquis) 2.5 mg PO BID [facility] Last Admin: 09/23/17 18:28 Dose: 2.5 mg Aspirin (Aspirin Chewable) 81 mg PO DAILY [facility] Calcium Acetate (Phoslo) 1,334 mg GT TID [facility] Last Admin: 09/23/17 18:28 Dose: 1,334 mg Famotidine (Pepcid) 20 mg PO DAILY [facility] Last Admin: 09/23/17 10:45 Dose: 20 mg Fluconazole (Diflucan) 200 mg PO DAILY [facility] Last Admin: 09/23/17 10:47 Dose: 200 mg Heparin Sodium (Porcine) (Heparin) 3,700 units IVP MWF [facility] Last Admin: 09/23/17 18:27 Dose: 3,700 units Tigecycline 50 mg/ Dextrose 100 mls @ 100 mls/hr IVPB Q12H [facility] Last Admin: 09/24/17 00:47 Dose: 100 mls/hr Insulin Aspart (Novolog) 0 unit SC Q6 [facility] PRN Reason: Protocol Last Admin: 09/24/17 06:00 Dose: Not Given Insulin Detemir (Levemir) 43 unit SC Q12 [facility] Last Admin: 09/23/17 21:51 Dose: 43 unit Lactobacillus Acidophilus (Bacid Acidophilus) 1 cap PO BID [facility] Last Admin: 09/23/17 18:28 Dose: 1 cap Metoprolol Tartrate (Lopressor) 50 mg PO BID [facility] Last Admin: 09/23/17 18:27 Dose: 50 mg Rosuvastatin Calcium (Crestor) 10 mg PO HS [facility] Last Admin: 08/26/17 22:41 Dose: 10 mg - Labs Labs: 09/24/17 06:27 09/24/17 06:27 PT 13.9 SECONDS (9.7-12.2) H 08/24/17 06:08 INR 1.2 08/24/17 06:08 APTT 55 SECONDS (21-34) H D 08/17/17 06:12 - Constitutional Appears: Non-toxic, No Acute Distress - Head Exam Head Exam: ATRAUMATIC, NORMOCEPHALIC - Eye Exam Eye Exam: EOMI, PERRL - ENT Exam Additional comments: trach in place - Respiratory Exam Respiratory Exam: Clear to Ausculation Bilateral. absent: Rhonchi, Wheezes - Cardiovascular Exam Cardiovascular Exam: REGULAR RHYTHM, +S1, +S2 - GI/Abdominal Exam GI & Abdominal Exam: Soft. absent: Distended - Extremities Exam Extremities Exam: absent: Pedal Edema, Tenderness - Neurological Exam Neurological Exam: Awake. absent: Alert, Oriented x3 - Psychiatric Exam Psychiatric exam: Flat Affect - Skin Skin Exam: Dry, Warm Assessment and Plan (1) Acute on chronic renal failure Status: Resolved (2) CHF (congestive heart failure) Status: Acute (3) CKD stage 4 secondary to hypertension Status: Acute (4) Cardiac arrest Status: Acute (5) CAD (coronary artery disease) Status: Chronic - Assessment and Plan (Free Text) Plan: maintain dialysis MWF next HD tuesday supportive care
[2017-09-24] MEDS: Insulin Detemir 100 units/ml Vial (Levemir) SC SCH ×2 (10:29→22:03)
[2017-09-24] MEDS: Lactobacillus Acidophilus 500 MU Cap PO SCH ×2 (10:32→17:33)
--- NOTE | 2017-09-24 22:49 | CP.PCM.PN ---
Subjective - Date & Time of Evaluation Date of Evaluation: 09/24/17 Time of Evaluation: 08:25 - Subjective Subjective: Patient seen and evaluated Not in distress Objective - Vital Signs/Intake and Output Vital Signs (last 24 hours): Temp Pulse Resp BP Pulse Ox 98.7 F 84 9 L 124/43 L 99 09/24/17 16:00 09/24/17 20:00 09/24/17 20:00 09/24/17 17:24 09/24/17 20:00 Intake and Output: 09/24/17 09/25/17 18:59 06:59 Intake Total 500 200 Output Total 0 0 Balance 500 200 - Medications Medications: Current Medications Acetylcysteine (Acetylcysteine 20%) 4 ml INH RQ6 [facility] Last Admin: 09/24/17 14:23 Dose: Not Given Apixaban (Eliquis) 2.5 mg PO BID [facility] Last Admin: 09/24/17 17:32 Dose: 2.5 mg Aspirin (Aspirin Chewable) 81 mg PO DAILY [facility] Last Admin: 09/24/17 10:29 Dose: 81 mg Calcium Acetate (Phoslo) 1,334 mg GT TID [facility] Last Admin: 09/24/17 17:32 Dose: 1,334 mg Famotidine (Pepcid) 20 mg PO DAILY [facility] Last Admin: 09/24/17 10:29 Dose: 20 mg Fluconazole (Diflucan) 200 mg PO DAILY [facility] Last Admin: 09/24/17 10:47 Dose: 200 mg Heparin Sodium (Porcine) (Heparin) 3,700 units IVP MWF [facility] Last Admin: 09/23/17 18:27 Dose: 3,700 units Tigecycline 50 mg/ Dextrose 100 mls @ 100 mls/hr IVPB Q12H [facility] Last Admin: 09/24/17 11:58 Dose: 100 mls/hr Insulin Aspart (Novolog) 0 unit SC Q6 [facility] PRN Reason: Protocol Last Admin: 09/24/17 18:15 Dose: Not Given Insulin Detemir (Levemir) 43 unit SC Q12 [facility] Last Admin: 09/24/17 22:03 Dose: 43 unit Lactobacillus Acidophilus (Bacid Acidophilus) 1 cap PO BID [facility] Last Admin: 09/24/17 17:33 Dose: 1 cap Metoprolol Tartrate (Lopressor) 50 mg PO BID [facility] Last Admin: 09/24/17 17:32 Dose: 50 mg Rosuvastatin Calcium (Crestor) 10 mg PO HS [facility] Last Admin: 08/26/17 22:41 Dose: 10 mg - Labs Labs: 09/24/17 06:27 09/24/17 06:27 PT 13.9 SECONDS (9.7-12.2) H 08/24/17 06:08 INR 1.2 08/24/17 06:08 APTT 55 SECONDS (21-34) H D 08/17/17 06:12
--- NOTE | 2017-09-25 02:41 | CP.PCM.PN ---
<Sina White - Last Filed: 09/25/17 02:36> Subjective - Date & Time of Evaluation Date of Evaluation: 09/25/17 Time of Evaluation: 02:36 - Subjective Subjective: Medicine Progress Note HPI: Patient seen and examined at bedside. More awake/aware. Smiles. NAD. ROS unattainable. Objective - Vital Signs/Intake and Output Vital Signs (last 24 hours): Temp Pulse Resp BP Pulse Ox 98.7 F 85 22 132/55 L 100 09/24/17 16:00 09/25/17 01:24 09/25/17 01:24 09/25/17 01:24 09/25/17 01:24 Intake and Output: 09/24/17 09/25/17 18:59 06:59 Intake Total 500 500 Output Total 0 300 Balance 500 200 - Medications Medications: Current Medications Acetylcysteine (Acetylcysteine 20%) 4 ml INH RQ6 [facility] Last Admin: 09/24/17 14:23 Dose: Not Given Apixaban (Eliquis) 2.5 mg PO BID [facility] Last Admin: 09/24/17 17:32 Dose: 2.5 mg Aspirin (Aspirin Chewable) 81 mg PO DAILY [facility] Last Admin: 09/24/17 10:29 Dose: 81 mg Calcium Acetate (Phoslo) 1,334 mg GT TID [facility] Last Admin: 09/24/17 17:32 Dose: 1,334 mg Famotidine (Pepcid) 20 mg PO DAILY [facility] Last Admin: 09/24/17 10:29 Dose: 20 mg Fluconazole (Diflucan) 200 mg PO DAILY [facility] Last Admin: 09/24/17 10:47 Dose: 200 mg Heparin Sodium (Porcine) (Heparin) 3,700 units IVP MWF [facility] Last Admin: 09/23/17 18:27 Dose: 3,700 units Tigecycline 50 mg/ Dextrose 100 mls @ 100 mls/hr IVPB Q12H [facility] Last Admin: 09/24/17 23:06 Dose: 100 mls/hr Insulin Aspart (Novolog) 0 unit SC Q6 [facility] PRN Reason: Protocol Last Admin: 09/25/17 00:00 Dose: Not Given Insulin Detemir (Levemir) 43 unit SC Q12 [facility] Last Admin: 09/24/17 22:03 Dose: 43 unit Lactobacillus Acidophilus (Bacid Acidophilus) 1 cap PO BID [facility] Last Admin: 09/24/17 17:33 Dose: 1 cap Metoprolol Tartrate (Lopressor) 50 mg PO BID [facility] Last Admin: 09/24/17 17:32 Dose: 50 mg Rosuvastatin Calcium (Crestor) 10 mg PO HS [facility] Last Admin: 08/26/17 22:41 Dose: 10 mg - Labs Labs: 09/24/17 06:27 09/24/17 06:27 PT 13.9 SECONDS (9.7-12.2) H 08/24/17 06:08 INR 1.2 08/24/17 06:08 APTT 55 SECONDS (21-34) H D 08/17/17 06:12 - Additional Findings Additional findings: - Constitutional Appears: Chronically Ill - Head Exam Head Exam: ATRAUMATIC, NORMAL INSPECTION, NORMOCEPHALIC - ENT Exam ENT Exam: Mucous Membranes Moist - Neck Exam Additional comments: trach - Respiratory Exam Respiratory Exam: Clear to Ausculation Bilateral, NORMAL BREATHING PATTERN - GI/Abdominal Exam GI & Abdominal Exam: Soft, Normal Bowel Sounds. absent: Distended, Tenderness - Extremities Exam Extremities Exam: absent: Joint Swelling, Tenderness - Back Exam Additional comments: 10x10 sacral decub stage 3 clean moist base, no necrotic tissue. Dressing changed with optifoam/medihoney. - Neurological Exam Neurological Exam: Alert, Awake - Skin Skin Exam: Dry, Normal Color, Warm. absent: Intact Assessment and Plan - Assessment and Plan (Free Text) Assessment: (1) Acute Respiratory Failure ARDS Cardiac Arrest Pulmonary Edema Nonstemi Assessment and Plan: * Code Blue on 08/10: asystole, cardiopulmonary resuscitative measures initiated , requiring 3 epis, bicarbonate, ROSC achieved and intubated and brought to the ICU for further management; Patient in the ICU from 08/10 until present. * Pulmonary: Dr Mena (Dr. Jeffers covering until 09/04/17)-->help appreciated * Cardiology: Dr. Cortés on board-->help appreciated * GI (Dr. Wills) on board-->help appreciated * S/P Tracheostomy 08/22 * S/P Peg tube placement 08/25 * s/p insertion of right posterior chest tube 08/19-->removed 08/24/17 * There was consideration for possible thoracentesis of left side pleural effusion, evaluated by IR, there is no fluid to drain per Dr. Gross * Chest xray (08/26): right arm PICC is seen with the tip of distal subclavian vein. PICC may be used * Per cardiology, * Restart Aspirin 81mg PO daily * Patient does not need Plavix at this time * Recommend for Eliquis 2.5mg PO BID for atrial flutter * 08/27: patient is pending LTAC, he went eventually need cardiac catheterization when he has stabilized. Held statin secondary to elevated LFTs. Discussed with Dr. Cortés, lowered Amiodarone 200mg PO daily * 08/28: patient is pending LTAC, he went eventually need cardiac catheterization when he has stabilized. Liver function tests improving * 08/29: Training Development Director Nehal has sent request to insurance for authorization for LTAC-->pending * 09/06: pending social work/case management approval for LTAC * 09/07: pending social work/case management approval for LTAC * 09/08: Unable to get approval for LTAC; pending other options * 09/09: Transferred from step-down ICU to the floors * 09/13: Trasnferred back to ICU S/P Rapid Response for low blood pressure * 09/14: Currently on Acetylcysteine 20 % Neb Q6H and Duoneb Q6H * 09/15: Passy Flex Trach placed by Family Worker (2) Abnormal Stress Test History of AICD History of Coronary Artery Disease Assessment and Plan: * Cardiology (Dr. Cortés) on board-->help appreciated * TSH: 1.16; T4: 1.53 * Echocardiogram (08/08/17): left ventricle systolic function is severely impaired. EF: 25-30%; global hypokinesis of left ventricle mild aortic regurgitation. Mitral regurgitation is moderate. Moderate-severe pulmonary hypertension * Plan was for cardiac catheterization; delayed due to acute renal failure; Attempted gentle hydration and mucomyst on 08/09 to optimize prior to cath * On 08/10, patient was in asystole, ACLS protocol, ROSC achieved, intubated and transfered to the ICU. Patient in acute pulmonary edema. * Patient hospitalized in the ICU since 08/10/17 to present. * Medications: * Aspirin 81mg PO daily * Plavix d/c by cardiology * Lopressor 50mg PO bid * d/c Crestor 10mg POqHS secondary to rise in LFTS 08/27--->monitor LFTs daily * ARB d/c secondary to acute renal failure * 08/27: patient is pending LTAC, he went eventually need cardiac catheterization when he has stabilized. Held statin secondary to elevated LFTs. Discussed with Dr. Cortés, lowered Amiodarone 200mg PO daily * 08/28: He will eventually need cardiac catheterization when he has stabilized. Liver function tests improving. Statin is on hold (3) Atrial flutter Assessment and Plan: * Cardiology (Dr. Cortés) on board-->help appreciated * Refractory to Lopressor/Cardizem IVP * Eliquis 2.5mg PO bid * Amiodarone bolus-->Amiodarine drip on 08/24-->converted to Amiodarone 200mg PO TID on 08/26 and this was decreased to 200 mg 1x/day due to increased LFTs * 08/27: Discussed with Dr. Cortés, will lower Amiodarone 200mg PO daily and monitor LFTs. Statin held and tylenol d/c * 08/29: patient is pending LTAC, he will eventually need cardiac catheterization when he has stabilized. Liver function tests improving. Statin is on hold due to the elevated LFTs * 08/30: Cardiology discontinued the Amiodarone * 09/07: Held eliquis; will need to resume * 09/09: Eliquis resumed, off Amiodarone Status: Acute (4) Acute on Chronic Systolic CHF exacerbation Assessment and Plan: * Cardiology (Dr. Cortés) on board-->help appreciated * Transferred to the ICU on 08/10 following cardiac arrest and intubation. * Echocardiogram (08/08/17): left ventricular systolic function is severely impaired. EF: 25-30%; global hypokinesis of left ventricle mild aortic regurgitation. Mitral regurgitation is moderate. Moderate-severe pulmonary hypertension * Medications: * Aspirin 81mg PO daily * Plavix d/c by cardiology * Lopressor 50mg PO bid * d/c Crestor 10mg POqHS on 08/27 secondary to rise in LFTs * ARB d/c secondary to acute renal failure Status: Acute (5) Leukocytosis Assessment and Plan: * Patient's white count downtrending * Pleural Fluid 08/19/17 did not show any growth * Blood cultures (08/26): no growth X5 days * UA and urine culture (08/27): Urine Culture showed Yeast Species. * Patient has elevated LFTs-->did not start anti-fungal in light of LFTs New: * 09/05/17 Blood: gram positive cocci-->pending speciation * 09/05/17 Blood: no growth after 4 days * 09/07/17 Legionella Culture: negative * 09/07/17 Mycobacteria: negative * 09/07/17 Sputum: Enterocloace Bacter; yeast * 09/07/17 Blood: negative X 48 hours * 09/07/17 Blood: negative X 48 hours * 09/06: stool culture pending; has not had diarrhea or bowel movement * 09/07: Dr. Zimmer (covering Dr. Lawrence) to see the patient given elevated procalcitonin * Blood Culture 09/13/17 is negative to date and Urine Culture 09/13/17 showed Yeast Species * 09/14: Could this be secondary to the Septic Shock? Secondary to Osteomyelitis of the Sacrum? 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) and Meropenem 500 mg IV Q8H (09/13/17 through 09/16/17), Diflucan 200 mg PO 1x/day (09/13/17), Bactrim 10 mL PO Q12H (09/12/17 through 09/16/17), Tigecycline 50 mg IV Q12H (09/16/17 started because of VRE on Sacrum Wound Culture 09/14/17) * ESR 09/14/17 elevated at 89 * Bone Scan performed 09/17/17 to check for Osteomyelitis at the Sacrum: results are pending * Meropenem 500 mg IV Q12H (09/13/17 through 09/16/17: which will cover the Enterbacter in the Sputum 09/07/17 and the possibility of Sacral Osteomyelitis) * Antibiotics as of 09/17/17:Tigecycline (09/16/17: which will cover the VRE in Sacral Wound Culture 09/14/17 and the possibility of Sacral Osteomyelitis) and Diflucan 200 mg PO 1x/day (09/13/17: which will cover with Yeast in the Sputum, Urine, and Sacral Wound Culture) Status: Acute (6) Pneumonia Assessment and Plan: * Pulmonary (Dr. Mena) on board-->help appreciated; Dr. Jeffers covering while Dr. Mena away * Infectious Disease (Dr. Lawrence)-->help appreciated * Chest xray (08/26): right arm PICC is seen with the tip of distal subclavian vein. PICC may be used * Rapid A strep, Influenza A and B studies, Urine Legionella, Mycoplasma studies = Negative * Florastor 250mg PO bid * 08/07/17: +Strep Pneumoniae in the urine * Meropenem 500mg IV Q 8 hours (08/14/17 through 08/18/17) and Zosyn 2.25 mg IV Q6H (08/13/17 through 08/18/17) * Cefepime 1 gm IV Q24H: started on 08/19/17 and was discontinued by ID Dr. Lawrence on 08/30/17: monitor vitals and labs * s/p right posterior chest tube 08/19-08/24 * Sputum Culture 08/19/17 shows No growth * Pleural fluid 08/19/17: No growth * 09/07/17 Sputum: Enterocloace Bacter and Yeast Species: See Antibiotic treatment in previous Assessment and Plan * Sputum 09/10/17 shows NO AFB Status: Acute (7) HTN (hypertension) Assessment and Plan: * Lopressor 50mg PO bid * Lisinopril 5mg PO daily Status: Chronic (8) CKD (chronic kidney disease) on Dialysis Assessment and Plan: * Dr. Miranda (nephrology) consulted on the case * Hx of CKD-->Started on dialysis 08/15/17 * Kurtis catheter placed and removed 08/22 * s/p Right Chest Permcath 08/22 * Patient is on dialysis M-W-F; oliguric * Phoslo 1334mg GT TID * Epoetin 10,000 unit IV MWF Status: Acute (9) Diabetes mellitus Assessment and Plan: * Accuchecks Q6H * HgbA1c 8.4 * Started peg feedings on 08/26/17 * Nepro-->50 ml/hour but this was held 09/13/17 due suspicion of Bowel Obstruction as NO bowel Movement since 09/07/17. This was restarted on after NO obstruction was observed on Obstruction Series 09/13/17 and after multiple bowel movement s/p Fleet Enema 09/13/17 (10) HLD (hyperlipidemia) Assessment and Plan: * 08/27: held Crestor 10 mg PO HS secondary to rise in LFTs * 08/29: Liver function tests improving; waiting to restart statin Status: Chronic (11) Anemia Assessment and Plan: * Heme-oncology (Dr. Giles bender) on board-->help appreciated * Likely iron deficiency anemia based on prior admissions * Ferritin 27.4, Iron 22, TIBC 322, % Saturation 7 * Ferric Sodium Gluconate 125mg IVPB daily (active 08/08-08/16) * Procrit 10,000 units M-W- * Monitor Hgb/Hct: stable Status: Chronic (12) History of DVT (deep vein thrombosis) Assessment and Plan: * Patient was previously on Eliquis for a prior history of DVT. * Repeat dopplers 08/09/17 are negative for DVT * Off Heparin Drip 08/17/17 * Started Eliquis 2.5mg PO BID for atrial flutter and history of DVT Status: Chronic (13) UTI Assessment and Plan: * Infectious disease (Dr. Lawrence) on board-->help appreciated * Exchange jaquez out and repeat urine cultures * Urine Culture 08/12/17 showed Gram Negative Rods: NO identification and NO sensitivities were performed * Meropenem 500mg IV Q 12hours (active since 08/14/17 through 08/18/17) to cover for UTI per ID * Repeat Urine Culture 08/18/17 shows NO growth * 08/25: reculture in light of leukocytosis * 08/27: pending urine studies * 08/30: Urine Culture 08/27/17 showed Yeast Species but no antifungal at that time secondary to recent history of Elevated LFTs * Urine Culture 09/13/17 showed Yeast Species: he is on Diflucan Status: Chronic (14) Confusion; Alzheimer's Dementia Assessment and Plan: * Per daughter, patient has been getting bouts of confusion over the past year but appears at baseline. Patient has not seen formal neurology as outpatient per daughter. Per , prior to event, noted Alzheimers' disease dx one year ago * CT head w/o contrast (08/10/17):acute os subacute lacune infarct is not excluded in the left basal ganglia inferiorly with definitive chronic lacune identified in the right basal ganglia superiorly. No acute or subacute lobar brain infarction is appreciable by standard CT criteria. Mild age-related neuro degenerative changes are identifed. No acute intracranial hemorrhage or mass is identified throughout * 08/26: Off Sedation-->patient moves all extremities randomly but does not follow directions * 08/27: off sedation-->patient is very calm, smiles at his * 08/28: off sedation-->patient is very calm Status: Chronic (15) Unstageable Sacral Ulcer, Left Ear Auricle Ulcer, Right Heal Ulcer Assessment and Plan: * Wound care on board * WOUND CARE NOTE (08/26)-->Pt with a sacral unstageable being treated with medihoney. No changes to dimensions at this time. Also, pt favoring Left side of head and has developed a 1x1 serous filled blister on his left ear. Primary nurse placed duoderm on the ear. Wound care nurse left duoderm in place , and recommends leaving it on until it falls off on its own. Pt has been NPO for several days, new peg inserted yesterday. Will be starting glucerna tube feedings later today. Albumin 3.3 * Turn q 2 hours * medihoney on unstageable ulcer * duoderm on left ear aurical ulcer: this is healed as of 09/15/17 * Prevalon Boots for Right Heal Blister 09/13/17 * 09/02/17: examined with Wound Care Nurse Emeka Samuel and periphery of the Sacral Wound is pink with some bleeding however center is still black and therefore still unstageable. Continue spray with Cavelon followed by thick coating with MediHoney followed by covering with OptiFoam once a day. * 09/03/17: Change of sacral ulcer dressing was performed by me with assitance from Nurse Lyman * 09/04/17: 09/03/17: Change of sacral ulcer dressing was performed by me with assistance from ALEXANDRA Unger * Per wound care note (09/07): sacral ulcer is stable per wound care nurse * 09/14/17: Sacral Ulcer is unstageable and area of blackness fills entire circumference. General Surgery consult placed to see if debridement is necessary. Continue Cavelon Scurry followed by paulina thick coating of MediHoney followed by covering with OptiFoam. * 09/15/17: Surgery Team debrided Sacral Ulcer and Bone Scan will need to be followed up which was performed 09/17/17 * 09/18/17: With the help of Nurse Guzman, applied Cavelon Scurry followed by thick coating of MediHoney followed by covering with OptiFoam * 09/19/17: Dressing for Sacral Ulcer already changed before my exam. Explained to Nurse Megan that best application of MediHoney would be to cover the padding of the OptiFoam with it and then apply the OptiFoam to the ulcer. Status: Acute (16) Elevated LFTs Assessment and Plan: * 08/27: Yina * Discussed with cardiology-->changed amiodarone 200mg PO tid to amiodaron 200mg PO daily * D/C tylenol * Held Statin * patient is also on Rocephin to cover for pneumonia * Will not start antifungal * 08/29: starting to down trending since change in amiodarone dose; awaiting to restart statin * 08/30: continues to trend down. Amiodarone was discontinued * 09/01: AST, ALT, Alk Phos still elevated but stable * 09/02: AST, ALT, Alk Phos still elevated but stable * 09/03: LFTs stable * 09/04: LFTs stable Status: Acute (17). Hx Constipation * Monitor bowel movement * Multiple bowel movements on 09/13/17 and 09/14/17 that are well formed s/p Fleet Enema on 09/13/17 * 09/15/17: NO bowel movement * 09/16/17: Soft pasty bowel movement * 09/17/17: Soft pasty bowel movement * 09/18/17: NO bowel movement * 09/19/17: ordered one dose of Lactulose 20 gm via PEG as still no bowel movement (18). Hyponatremia * 09/19/17: at 127 monitor for now (19). Prophylactic measure Assessment and Plan: * Pepcid 20mg PO daily * Start Eliquis 2.5mg PO BID * s/p peg placement 08/25 * s/p trachesostomy 08/22 * s/p Permcath placement 08/22 removal Kurtis catheter * s/p right posterior chest tube 08/19-->removed 08/24 * s/p Right Arm PICC 08/26 * (Jovita Serrano): -->number provided to the nurse- ->consented for peg placement; discussed about LTAC 08/26 * Spoke with Dr. Pickard, MARIAJOSE regarding patient's hospitalization up until this point 08/2609/01/17: Dr. Cullen Barth spoke with the patient's [place] with the assistance of Nurse Campos on 3 tower (as multiple attempts of using [employer] indicated that all of the [place] translators were busy) and explained all of the patient's diagnosises. 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 Her ultimate wish is to take patient to [facility] where their children live. I explained to patient that I would not know how that would be coordinated but that the Social Workers/Cocoa Press Operator at LTAC may be of assistance in this regard. I also informed her that I am not aware of any insurance company that would finance this request. She understands that the patient is awaiting insurance approval for LTAC. 09/01/17 and 09/02/17: Dr. Cullen Barth spoke with Care Program Director Demetria and we are still awaiting insurance authorization for LTAC placement. 09/05/17: Spoke with nehal [employer] social science teacher, wean trials sent to LTAC pending approval no word yet regarding approval. Ordered for repeat cultures given uptrend in white count. 09/06/17: pending repeat cultures in light of elevated procalcitonin; ID recommended to reculture. Note: patients PICC lined had clogged ports. Red port remains clogged in spite of cath rafaela. Blue port improved after cath rafaela. Possible may need to remove line to r/o infected line. Strong suspicion due to patient's pneumonia given he has thick secretions. 09/07/17: Infectious disease. pending repeat cultures in light of elevated procalcitonin; Note: patients PICC lined had clogged ports. Red port remains clogged in spite of cath rafaela. Blue port improved after cath rafaela. Hip xray negative for acute fracture. There are no noted falls. 09/08/17: Patient denied for LTAC; awaiting for other options from case management/social work. Resident Eng spoke with Dr. Cortés, patient be transferred under regular bed, when bed is available. Infectious disease on board; Patient started on IV Vancomycin in light of + blood culture. Pending chest xray. 09/09/17: Patient denied for LTAC; awaiting for other options from case management/social work with kamlesh verdin support. Patient started on IV Vancomycin MWF in light of + blood culture. Pending chest xray. F/U sputum with ID. f/u latest blood cultures. 09/13/17: Rapid response for low blood pressure and elevated WBC likely Septic Shock. Started on Levophed, added Meropenem to Vancomycin and 1 dose of Gentamycin given after speaking with ID. Ordered Obstruction Series as no bowel movement since 09/07/17. F/U Shock Panel. Discussed with ICU Resident to arrange for Change of Right Arm Midline line and Trach Collar. 09/14/17: Will await results of Blood Culture 09/13/17 to determine if the Right Arm Midline, Right Chest Perm Cath, and Trach Collar needs to be changed. Spoke with Care Program Director Demetria in ICU and patient information has been sent to [facility] (they accept patients on Trach) and she is awaiting to hear back from them before submitting approval request to insurance company. 09/15/17: Passy [place] Trach placed by Family Worker. Surgical Team for debridement of Sacral Ulcer. Spoke with patient's ([place] Denisa [id number]) and explained/updated her on patient condition and obtained consent for sacral ulcer debridement. 09/16/17: Still awaiting performance of Sacral Bone Scan 09/17/17: Bone Scan performed and awaiting results 09/18/17: Awaiting Bone Scan Report 09/19/17: Still awaiting Bone Scan Report. Spoke again with Care Program Director Demetria and NO word yet from [facility] or [facility] (they do treat patients with Trachs). 09/20/17: Repeat Wound culture and urine culture sent. Dressing changed with medihoney and optifoam. No other changes at this time. Still waiting for approval for [facility] 09/21/17: No changes at this time. Will continue to change wound dressing Q3D and follow up with case management for for correction transfer. 09/22/17: Dressing changed today with medihoney. Healing appropriately. Talked to case management. Still no update from assisted transfer. Bone scan negative for osteo. Repeat wound cultures continue to grow Enterococcus. Will follow up sensitivities <Mariangel Lazar V - Last Filed: 09/25/17 20:34> Objective - Vital Signs/Intake and Output Vital Signs (last 24 hours): Temp Pulse Resp BP Pulse Ox 98.8 F 90 11 L 108/54 L 100 09/25/17 19:30 09/25/17 19:30 09/25/17 18:00 09/25/17 13:24 09/25/17 10:00 Intake and Output: 09/25/17 09/26/17 18:59 06:59 Intake Total 150 Output Total 850 Balance -700 - Medications Medications: Current Medications Acetylcysteine (Acetylcysteine 20%) 4 ml INH RQ6 [facility] Last Admin: 09/25/17 08:38 Dose: Not Given Apixaban (Eliquis) 2.5 mg PO BID [facility] Last Admin: 09/25/17 18:39 Dose: 2.5 mg Aspirin (Aspirin Chewable) 81 mg PO DAILY [facility] Last Admin: 09/25/17 10:19 Dose: 81 mg Calcium Acetate (Phoslo) 1,334 mg GT TID [facility] Last Admin: 09/25/17 18:38 Dose: 1,334 mg Famotidine (Pepcid) 20 mg PO DAILY [facility] Last Admin: 09/25/17 10:20 Dose: 20 mg Fluconazole (Diflucan) 200 mg PO DAILY [facility] Last Admin: 09/25/17 12:23 Dose: Not Given Heparin Sodium (Porcine) (Heparin) 3,700 units IVP MWF [facility] Last Admin: 09/23/17 18:27 Dose: 3,700 units Tigecycline 50 mg/ Dextrose 100 mls @ 100 mls/hr IVPB Q12H [facility] Last Admin: 09/25/17 12:22 Dose: 100 mls/hr Insulin Aspart (Novolog) 0 unit SC Q6 [facility] PRN Reason: Protocol Last Admin: 09/25/17 18:38 Dose: Not Given Rosuvastatin Calcium (Crestor) 10 mg PO HS [facility] Last Admin: 08/26/17 22:41 Dose: 10 mg - Labs Labs: 09/24/17 06:27 09/24/17 06:27 PT 13.9 SECONDS (9.7-12.2) H 08/24/17 06:08 INR 1.2 08/24/17 06:08 APTT 55 SECONDS (21-34) H D 08/17/17 06:12 Attending/Attestation - Attestation I have personally seen and examined this patient.: Yes I have fully participated in the care of the patient.: Yes I have reviewed all pertinent clinical information, including history, physical exam and plan: Yes Notes (Text): Patient seen, examined, and case discussed with day-time resident. Patient seen this evening Patient does not appear in acute distress, Dressing over sacral wound changed this evening. Healing. Patient had a bowel movement. Patient was hypoglycemic, but patient is having tube feedings. Patient also retained 600cc urine; straight cath urine PRN. Had discussed with case management; difficult to get patient rehab while on rehab-->will need to follow-up with pulmonary regarding weaning Adjusted insulin coverage to low dose sliding scale Patient has been on Fluconazole 200mg PO daily since 09/13/17-->will need to f/ u with ID when to discontinue. Will order procalcitonin for tomorrow Assessment/Plan (1) Acute Respiratory Failure ARDS Cardiac Arrest Pulmonary Edema Nonstemi Assessment and Plan: * Code Blue on 08/10: asystole, cardiopulmonary resuscitative measures initiated , requiring 3 epis, bicarbonate, ROSC achieved and intubated and brought to the ICU for further management; Patient in the ICU from 08/10 until present. * Pulmonary: Dr Mena (Dr. Jeffers covering until 09/04/17)-->help appreciated * Cardiology: Dr. Cortés on board-->help appreciated * GI (Dr. Wills) on board-->help appreciated * S/P Tracheostomy 08/22 * S/P Peg tube placement 08/25 * s/p insertion of right posterior chest tube 08/19-->removed 08/24/17 * Passy [place] Trach placed 09/15 * There was consideration for possible thoracentesis of left side pleural effusion, evaluated by IR, there is no fluid to drain per Dr. Gross * Chest xray (08/26): right arm PICC is seen with the tip of distal subclavian vein. PICC may be used * Chest Xray (09/20/17): lines and tubes stable position, left-sided pacemaker, moderate venous congestion, left basilar opacity with associated small left pleural effusion, Cardiomegaly. Prominent aorta, degenrative changes in spine and shoulders * Medications: * Acetylcysteine 20% 4ml INH RQ6H * Duoneb 3ml INH RQ6H * Aspirin 81mg PO daily * Eliquis 2.5mg PO bid * Lopressor 50mg PO bid (2) Abnormal Stress Test History of AICD History of Coronary Artery Disease Assessment and Plan: * Cardiology (Dr. Cortés) on board-->help appreciated * TSH: 1.16; T4: 1.53 * Echocardiogram (08/08/17): left ventricle systolic function is severely impaired. EF: 25-30%; global hypokinesis of left ventricle mild aortic regurgitation. Mitral regurgitation is moderate. Moderate-severe pulmonary hypertension * Plan was for cardiac catheterization; delayed due to acute renal failure; Attempted gentle hydration and mucomyst on 08/09 to optimize prior to cath * On 08/10, patient was in asystole, ACLS protocol, ROSC achieved, intubated and transfered to the ICU. Patient in acute pulmonary edema. * Patient hospitalized and require to and from ICU twice during this admission * Cardiac cath postponed at this time * Medications: * Acetylcysteine 20% 4ml INH RQ6H * Duoneb 3ml INH RQ6H * Aspirin 81mg PO daily * Eliquis 2.5mg PO bid * Lopressor 50mg PO bid (3) Atrial flutter Assessment and Plan: * Cardiology (Dr. Cortés) on board-->help appreciated * Refractory to Lopressor/Cardizem IVP * Eliquis 2.5mg PO bid * Off Amiodarone per cardiology * c/w Lopressor 50mg PO bid Status: Resolved (4) Acute on Chronic Systolic CHF exacerbation Assessment and Plan: * Cardiology (Dr. Cortés) on board-->help appreciated * Transferred to the ICU on 08/10 following cardiac arrest and intubation. * Echocardiogram (08/08/17): left ventricular systolic function is severely impaired. EF: 25-30%; global hypokinesis of left ventricle mild aortic regurgitation. Mitral regurgitation is moderate. Moderate-severe pulmonary hypertension * Medications: * Aspirin 81mg PO daily * Lopressor 50mg PO bid * ARB d/c secondary to acute renal failure * Restart statin given LFTs normalized * Weight: 184; as high as 291 (questionable) on admission Status: Stable (5) Leukocytosis Assessment and Plan: * Pleural Fluid 08/19/17 did not show any growth * Blood cultures (09/13): no growth X5 days X2 * Blood cultures (09/07) during dialysis: no growth X5 days X2 * UA and urine culture (08/27): Yeast Species. * UA and urine culture (09/13): Yeast Species. 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 * Sacral Ulcer (09/14/17): VRE and Reny Albicans * Blood Culture 09/13/17 is negative to date and Urine Culture 09/13/17 showed Yeast Species * Bone Scan performed 09/17/17 to check for Osteomyelitis at the Sacrum: negative for osteomyelitis * OFF Meropenem 500 mg IV Q12H (09/13/17 through 09/16/17: which will cover the Enterbacter in the Sputum 09/07/17 and the possibility of Sacral Osteomyelitis) * c/w Tigecycline (09/16/17: which will cover the VRE in Sacral Wound Culture and the possibility of Sacral Osteomyelitis) and Diflucan 200 mg PO 1x/ day (09/13/17: which will cover with Yeast in the Sputum, Urine, and Sacral Wound Culture) * Procalcitionin: 8.60 (09/06/17)-->5.50 Status: Acute (6) Pneumonia Assessment and Plan: * Pulmonary (Dr. Mena) on board-->help appreciated * Infectious Disease (Dr. Lawrence)-->help appreciated * Chest xray (08/26): right arm PICC is seen with the tip of distal subclavian vein. PICC may be used * Rapid A strep, Influenza A and B studies, Urine Legionella, Mycoplasma studies = Negative * Florastor 250mg PO bid * 08/07/17: +Strep Pneumoniae in the urine * Meropenem 500mg IV Q 8 hours (08/14/17 through 08/18/17) and Zosyn 2.25 mg IV Q6H (08/13/17 through 08/18/17) * Cefepime 1 gm IV Q24H: started on 08/19/17 and was discontinued by ID Dr. Lawrence on 08/30/17: monitor vitals and labs * s/p right posterior chest tube 08/19-08/24 * Sputum Culture 08/19/17 shows No growth * Pleural fluid 08/19/17: No growth * 09/07/17 Sputum: Enterocloace Bacter and Yeast Species: See Antibiotic treatment in previous Assessment and Plan * Sputum 09/10/17 shows NO AFB Status: Acute (7) HTN (hypertension) Assessment and Plan: * Lopressor 50mg PO bid * Lisinopril 5mg PO daily Status: Chronic (8) CKD (chronic kidney disease) on Dialysis Assessment and Plan: * Dr. Miranda (nephrology) consulted on the case * Hx of CKD-->Started on dialysis 08/15/17 * Kurtis catheter placed and removed 08/22 * s/p Right Chest Permcath 08/22 * Patient is on dialysis M-W-F; oliguric * Phoslo 1334mg GT TID * Epoetin 10,000 unit IV MWF Status: Crhonic (9) Diabetes mellitus Assessment and Plan: * Accuchecks Q6H * HgbA1c 8.4 * Started peg feedings on 08/26/17 * Nepro-->50 ml/hour but this was held 09/13/17 due suspicion of Bowel Obstruction as NO bowel Movement since 09/07/17. This was restarted on after NO obstruction was observed on Obstruction Series 09/13/17 and after multiple bowel movement s/p Fleet Enema 09/13/17 (10) HLD (hyperlipidemia) Assessment and Plan: * LFTS have normalized; will restart statin 10/24/17 Status: Chronic (11) Anemia Assessment and Plan: * Heme-oncology (Dr. Giles bender) on board-->help appreciated * Likely iron deficiency anemia based on prior admissions * Ferritin 27.4, Iron 22, TIBC 322, % Saturation 7 * Ferric Sodium Gluconate 125mg IVPB daily (active 08/08-08/16) * Procrit 10,000 units M-W- * Monitor Hgb/Hct: stable Status: Chronic (12) History of DVT (deep vein thrombosis) Assessment and Plan: * Patient was previously on Eliquis for a prior history of DVT. * Repeat dopplers 08/09/17 are negative for DVT * Off Heparin Drip 08/17/17 * Started Eliquis 2.5mg PO BID for atrial flutter and history of DVT Status: Chronic (13) UTI Assessment and Plan: * Infectious disease (Dr. Lawrence) on board-->help appreciated * Exchange jaquez out and repeat urine cultures * Urine Culture 08/12/17 showed Gram Negative Rods: NO identification and NO sensitivities were performed * Meropenem 500mg IV Q 12hours (active since 08/14/17 through 08/18/17) to cover for UTI per ID * Repeat Urine Culture 08/18/17 shows NO growth * 08/25: reculture in light of leukocytosis * 08/27: pending urine studies * 08/30: Urine Culture 08/27/17 showed Yeast Species but no antifungal at that time secondary to recent history of Elevated LFTs * Urine Culture 09/13/17 showed Yeast Species: he is on Diflucan Status: Chronic (14) Confusion; Alzheimer's Dementia Assessment and Plan: * Per daughter, patient has been getting bouts of confusion over the past year but appears at baseline. Patient has not seen formal neurology as outpatient per daughter. Per , prior to event, noted Alzheimers' disease dx one year ago * CT head w/o contrast (08/10/17):acute os subacute lacune infarct is not excluded in the left basal ganglia inferiorly with definitive chronic lacune identified in the right basal ganglia superiorly. No acute or subacute lobar brain infarction is appreciable by standard CT criteria. Mild age-related neuro degenerative changes are identifed. No acute intracranial hemorrhage or mass is identified throughout * 08/26: Off Sedation-->patient moves all extremities randomly but does not follow directions * 08/27: off sedation-->patient is very calm, smiles at his * 08/28: off sedation-->patient is very calm Status: Chronic (15) Unstageable Sacral Ulcer, Left Ear Auricle Ulcer, Right Heal Ulcer Assessment and Plan: * Wound care on board * WOUND CARE NOTE (08/26)-->Pt with a sacral unstageable being treated with medihoney. No changes to dimensions at this time. Also, pt favoring Left side of head and has developed a 1x1 serous filled blister on his left ear. Primary nurse placed duoderm on the ear. Wound care nurse left duoderm in place , and recommends leaving it on until it falls off on its own. Pt has been NPO for several days, new peg inserted yesterday. Will be starting glucerna tube feedings later today. Albumin 3.3 * Turn q 2 hours * medihoney on unstageable ulcer * duoderm on left ear aurical ulcer: this is healed as of 09/15/17 * Prevalon Boots for Right Heal Blister 09/13/17 * 09/02/17: examined with Wound Care Nurse Emeka Samuel and periphery of the Sacral Wound is pink with some bleeding however center is still black and therefore still unstageable. Continue spray with Cavelon followed by thick coating with MediHoney followed by covering with OptiFoam once a day. * 09/03/17: Change of sacral ulcer dressing was performed by me with assitance from Nurse Lyman * 09/04/17: 09/03/17: Change of sacral ulcer dressing was performed by me with assistance from ALEXANDRA Unger * Per wound care note (09/07): sacral ulcer is stable per wound care nurse * 09/14/17: Sacral Ulcer is unstageable and area of blackness fills entire circumference. General Surgery consult placed to see if debridement is necessary. Continue Cavelon Scurry followed by paulina thick coating of MediHoney followed by covering with OptiFoam. * 09/15/17: Surgery Team debrided Sacral Ulcer and Bone Scan will need to be followed up which was performed 09/17/17 * 09/18/17: With the help of Nurse Guzman, applied Cavelon Scurry followed by thick coating of MediHoney followed by covering with OptiFoam * 09/19/17: Dressing for Sacral Ulcer already changed before my exam. Explained to Nurse Megan that best application of MediHoney would be to cover the padding of the OptiFoam with it and then apply the OptiFoam to the ulcer. * Sacral Ulcer (09/15/17): VRE and Reny Albicans * Sacral Ulcer (09/14/17): VRE and Reny Albicans * c/w Tigecycline (09/16/17: which will cover the VRE in Sacral Wound Culture 09/14/17 and the possibility of Sacral Osteomyelitis) and Diflucan 200 mg PO 1x/ day (09/13/17: which will cover with Yeast in the Sputum, Urine, and Sacral Wound Culture) * 09/20/17: Opti dressing placed by resident, sample taken by resident to see if sacral wound is healing/treated with IV abx coverage * 09/22/17: Dressing was changed yesterday by the resident, granulation tissue, procalcitonin improved from 8-->5. * 09/23/17: Patient's repeat sacral wound (09/20/17): VRE and Reny Albicans. c/w IV abx Status: Acute (16) Elevated LFTs Assessment and Plan: * Have normalized * Currently on Diflucan since 09/13/17 * Will restart patient's statin (17). Hx Constipation * Monitor bowel movement * 09/25/17 had bowel movement today (18). Hyponatremia * 09/19/17: at 127 monitor for now (19). Prophylactic measure Assessment and Plan: * Pepcid 20mg PO daily * Start Eliquis 2.5mg PO BID * s/p peg placement 08/25 * s/p trachesostomy 08/22 * s/p Permcath placement 08/22 removal Kurtis catheter * s/p right posterior chest tube 08/19-->removed 08/24 * s/p Right Arm PICC 08/26 * Passy [place] Trach placed 09/15 * (Jovita Serrano): -->number provided to the nurse- ->consented for peg placement; discussed about LTAC 08/26 * Spoke with Dr. Pickard, [facility] regarding patient's hospitalization up until 9/29 Disposition: * Awaiting from case management in regards to discharge to subacute rehab * Patient is currently on IV abx for sacral wound and urinary tract infection; monitor sacral wound * Patient was hypoglycemic overnight; insulin sliding scale adjusted
[2017-09-25] MEDS: Acetylcysteine 20% Inhal Soln (4ml) INH SCH ×4 (02:59→20:00)
[2017-09-25] MEDS: (Novolog) Insulin Aspart, Recombinant 100 u/ml 10 ml vial SC SCH ×4 (06:00→18:38)
[2017-09-25] MEDS ORDERED: Dextrose 50% SYRINGE Inj (50 ml) ONE (06:07)
[2017-09-25] MEDS ORDERED: Dextrose 50% SYRINGE Inj (50 ml) IV STA (06:09)
[2017-09-25] MEDS: Lactobacillus Acidophilus 500 MU Cap PO SCH (10:21)
[2017-09-25] MEDS: Insulin Detemir 100 units/ml Vial (Levemir) SC SCH (12:16)
[2017-09-25] MEDS: Tigecycline 50 MG in Dextrose 5% In Water 100 ML IVPB SCH (12:22)
--- NOTE | 2017-09-25 23:50 | CP.PCM.PN ---
Subjective - Date & Time of Evaluation Date of Evaluation: 09/25/17 Time of Evaluation: 21:05 - Subjective Subjective: Patient seen and evaluated No cardiac events Not in distress Objective - Vital Signs/Intake and Output Vital Signs (last 24 hours): Temp Pulse Resp BP Pulse Ox 98.8 F 90 11 L 108/54 L 100 09/25/17 19:30 09/25/17 19:30 09/25/17 18:00 09/25/17 13:24 09/25/17 10:00 Intake and Output: 09/25/17 09/26/17 18:59 06:59 Intake Total 150 Output Total 850 Balance -700 - Medications Medications: Current Medications Acetylcysteine (Acetylcysteine 20%) 4 ml INH RQ6 [facility] Last Admin: 09/25/17 20:00 Dose: Not Given Apixaban (Eliquis) 2.5 mg PO BID [facility] Last Admin: 09/25/17 18:39 Dose: 2.5 mg Aspirin (Aspirin Chewable) 81 mg PO DAILY [facility] Last Admin: 09/25/17 10:19 Dose: 81 mg Calcium Acetate (Phoslo) 1,334 mg GT TID [facility] Last Admin: 09/25/17 18:38 Dose: 1,334 mg Famotidine (Pepcid) 20 mg PO DAILY [facility] Last Admin: 09/25/17 10:20 Dose: 20 mg Fluconazole (Diflucan) 200 mg PO DAILY [facility] Last Admin: 09/25/17 12:23 Dose: Not Given Heparin Sodium (Porcine) (Heparin) 3,700 units IVP MWF [facility] Last Admin: 09/23/17 18:27 Dose: 3,700 units Tigecycline 50 mg/ Dextrose 100 mls @ 100 mls/hr IVPB Q12H [facility] Last Admin: 09/25/17 12:22 Dose: 100 mls/hr Insulin Aspart (Novolog) 0 unit SC Q6 [facility] PRN Reason: Protocol Rosuvastatin Calcium (Crestor) 10 mg PO HS [facility] Last Admin: 08/26/17 22:41 Dose: 10 mg - Labs Labs: 09/24/17 06:27 09/24/17 06:27 PT 13.9 SECONDS (9.7-12.2) H 08/24/17 06:08 INR 1.2 08/24/17 06:08 APTT 55 SECONDS (21-34) H D 08/17/17 06:12
[2017-09-26] MEDS: Tigecycline 50 MG in Dextrose 5% In Water 100 ML IVPB SCH (00:58)
[2017-09-26] MEDS: (Novolog) Insulin Aspart, Recombinant 100 u/ml 10 ml vial SC SCH ×4 (00:59→18:18)
[2017-09-26] MEDS: Acetylcysteine 20% Inhal Soln (4ml) INH SCH ×4 (02:55→19:20)
[2017-09-26] MEDS: Albuterol-Ipratrop 3 mg / 0.5 (3 ml) UD INH SCH ×3 (09:36→19:20)
--- NOTE | 2017-09-26 11:38 | CP.PCM.PN ---
<Sina White - Last Filed: 09/26/17 17:32> Subjective - Date & Time of Evaluation Date of Evaluation: 09/26/17 Time of Evaluation: 11:33 - Subjective Subjective: Medicine Progress Note for Dr. Barth HPI: 77 year old male is found lying in bed resting comfortably in no acute distress. Patient is responding to commands and smiles. Review of systems is unobtainable because patient does not currently speak. Objective - Vital Signs/Intake and Output Vital Signs (last 24 hours): Temp Pulse Resp BP Pulse Ox 97.8 F 96 H 16 114/66 100 09/26/17 09:30 09/26/17 09:30 09/26/17 09:30 09/26/17 11:30 09/26/17 09:30 Intake and Output: 09/26/17 09/26/17 06:59 18:59 Intake Total 500 Output Total 25 Balance 475 - Medications Medications: Current Medications Acetylcysteine (Acetylcysteine 20%) 4 ml [facility]H R[facility]6 [facility] Last Admin: 09/26/17 07:18 Dose: Not Given Albuterol/Ipratropium (Duoneb 3 Mg/0.5 Mg (3 Ml) Ud) 3 ml INH RQ6 [facility] Last Admin: 09/26/17 09:36 Dose: Not Given Apixaban (Eliquis) 2.5 mg PO BID [facility] Last Admin: 09/25/17 18:39 Dose: 2.5 mg Aspirin (Aspirin Chewable) 81 mg PO DAILY [facility] Last Admin: 09/25/17 10:19 Dose: 81 mg Calcium Acetate (Phoslo) 1,334 mg GT TID [facility] Last Admin: 09/25/17 18:38 Dose: 1,334 mg Famotidine (Pepcid) 20 mg PO DAILY [facility] Last Admin: 09/25/17 10:20 Dose: 20 mg Fluconazole (Diflucan) 200 mg PO DAILY [facility] Last Admin: 09/25/17 12:23 Dose: Not Given Insulin Aspart (Novolog) 0 unit SC Q6 [facility] PRN Reason: Protocol Last Admin: 09/26/17 06:44 Dose: 1 unit Rosuvastatin Calcium (Crestor) 10 mg PO HS [facility] Last Admin: 08/26/17 22:41 Dose: 10 mg - Labs Labs: 09/24/17 06:27 09/24/17 06:27 PT 13.9 SECONDS (9.7-12.2) H 08/24/17 06:08 INR 1.2 08/24/17 06:08 APTT 55 SECONDS (21-34) H D 08/17/17 06:12 - Additional Findings Additional findings: - Constitutional Appears: Chronically Ill - Head Exam Head Exam: ATRAUMATIC, NORMAL INSPECTION, NORMOCEPHALIC - ENT Exam ENT Exam: Mucous Membranes Moist - Neck Exam Additional comments: trach - Respiratory Exam Respiratory Exam: Clear to Ausculation Bilateral, NORMAL BREATHING PATTERN - GI/Abdominal Exam GI & Abdominal Exam: Soft, Normal Bowel Sounds. absent: Distended, Tenderness - Extremities Exam Extremities Exam: absent: Joint Swelling, Tenderness - Back Exam Additional comments: 10x10 sacral decub stage 3 clean moist base, no necrotic tissue. Dressing changed with optifoam/medihoney. - Neurological Exam Neurological Exam: Alert, Awake - Skin Skin Exam: Dry, Normal Color, Warm. absent: Intact Assessment and Plan - Assessment and Plan (Free Text) Assessment: (1) Acute Respiratory Failure ARDS Cardiac Arrest Pulmonary Edema Nonstemi Assessment and Plan: * Code Blue on 08/10: asystole, cardiopulmonary resuscitative measures initiated , requiring 3 epis, bicarbonate, ROSC achieved and intubated and brought to the ICU for further management; Patient in the ICU from 08/10 until present. * Pulmonary: Dr Mena (Dr. Jeffers covering until 09/04/17)-->help appreciated * Cardiology: Dr. Cortés on board-->help appreciated * GI (Dr. Wills) on board-->help appreciated * S/P Tracheostomy 08/22 * S/P Peg tube placement 08/25 * s/p insertion of right posterior chest tube 08/19-->removed 08/24/17 * There was consideration for possible thoracentesis of left side pleural effusion, evaluated by IR, there is no fluid to drain per Dr. Gross * Chest xray (08/26): right arm PICC is seen with the tip of distal subclavian vein. PICC may be used * Per cardiology, * Restart Aspirin 81mg PO daily * Patient does not need Plavix at this time * Recommend for Eliquis 2.5mg PO BID for atrial flutter * 08/27: patient is pending LTAC, he went eventually need cardiac catheterization when he has stabilized. Held statin secondary to elevated LFTs. Discussed with Dr. Cortés, lowered Amiodarone 200mg PO daily * 08/28: patient is pending LTAC, he went eventually need cardiac catheterization when he has stabilized. 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 has sent request to insurance for authorization for LTAC-->pending * 09/06: pending social work/case management approval for LTAC * 09/07: pending social work/case management approval for LTAC * 09/08: Unable to get approval for LTAC; pending other options * 09/09: Transferred from step-down ICU to the floors * 09/13: Trasnferred back to ICU S/P Rapid Response for low blood pressure * 09/14: Currently on Acetylcysteine 20 % Neb Q6H and Duoneb Q6H * 09/15: Passy Flex Trach placed by Product Analyst (2) Abnormal Stress Test History of AICD History of Coronary Artery Disease Assessment and Plan: * Cardiology (Dr. Cortés) on board-->help appreciated * TSH: 1.16; T4: 1.53 * Echocardiogram (08/08/17): left ventricle systolic function is severely impaired. EF: 25-30%; global hypokinesis of left ventricle mild aortic regurgitation. Mitral regurgitation is moderate. Moderate-severe pulmonary hypertension * Plan was for cardiac catheterization; delayed due to acute renal failure; Attempted gentle hydration and mucomyst on 08/09 to optimize prior to cath * On 08/10, patient was in asystole, ACLS protocol, ROSC achieved, intubated and transfered to the ICU. Patient in acute pulmonary edema. * Patient hospitalized in the ICU since 08/10/17 to present. * Medications: * Aspirin 81mg PO daily * Plavix d/c by cardiology * Lopressor 50mg PO bid * d/c Crestor 10mg POqHS secondary to rise in LFTS 08/27--->monitor LFTs daily * ARB d/c secondary to acute renal failure * 08/27: patient is pending LTAC, he went eventually need cardiac catheterization when he has stabilized. Held statin secondary to elevated LFTs. Discussed with Dr. Cortés, lowered Amiodarone 200mg PO daily * 08/28: He will eventually need cardiac catheterization when he has stabilized. Liver function tests improving. Statin is on hold (3) Atrial flutter Assessment and Plan: * Cardiology (Dr. Cortés) on board-->help appreciated * Refractory to Lopressor/Cardizem IVP * Eliquis 2.5mg PO bid * Amiodarone bolus-->Amiodarine drip on 08/24-->converted to Amiodarone 200mg PO TID on 08/26 and this was decreased to 200 mg 1x/day due to increased LFTs * 08/27: Discussed with Dr. Cortés, will lower Amiodarone 200mg PO daily and monitor LFTs. Statin held and tylenol d/c * 08/29: patient is pending LTAC, he will eventually need cardiac catheterization when he has stabilized. Liver function tests improving. Statin is on hold due to the elevated LFTs * 08/30: Cardiology discontinued the Amiodarone * 09/07: Held eliquis; will need to resume * 09/09: Eliquis resumed, off Amiodarone Status: Acute (4) Acute on Chronic Systolic CHF exacerbation Assessment and Plan: * Cardiology (Dr. Cortés) on board-->help appreciated * Transferred to the ICU on 08/10 following cardiac arrest and intubation. * Echocardiogram (08/08/17): left ventricular systolic function is severely impaired. EF: 25-30%; global hypokinesis of left ventricle mild aortic regurgitation. Mitral regurgitation is moderate. Moderate-severe pulmonary hypertension * Medications: * Aspirin 81mg PO daily * Plavix d/c by cardiology * Lopressor 50mg PO bid * d/c Crestor 10mg POqHS on 08/27 secondary to rise in LFTs * ARB d/c secondary to acute renal failure Status: Acute (5) Leukocytosis Assessment and Plan: * Patient's white count downtrending * Pleural Fluid 08/19/17 did not show any growth * Blood cultures (08/26): no growth X5 days * UA and urine culture (08/27): Urine Culture showed Yeast Species. * Patient has elevated LFTs-->did not start anti-fungal in light of LFTs New: * 09/05/17 Blood: gram positive cocci-->pending speciation * 09/05/17 Blood: no growth after 4 days * 09/07/17 Legionella Culture: negative * 09/07/17 Mycobacteria: negative * 09/07/17 Sputum: Enterocloace Bacter; yeast * 09/07/17 Blood: negative X 48 hours * 09/07/17 Blood: negative X 48 hours * 09/06: stool culture pending; has not had diarrhea or bowel movement * 09/07: Dr. Zimmer (covering Dr. Lawrence) to see the patient given elevated procalcitonin * Blood Culture 09/13/17 is negative to date and Urine Culture 09/13/17 showed Yeast Species * 09/14: Could this be secondary to the Septic Shock? Secondary to Osteomyelitis of the Sacrum? 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) and Meropenem 500 mg IV Q8H (09/13/17 through 09/16/17), Diflucan 200 mg PO 1x/day (09/13/17), Bactrim 10 mL PO Q12H (09/12/17 through 09/16/17), Tigecycline 50 mg IV Q12H (09/16/17 started because of VRE on Sacrum Wound Culture 09/14/17) * ESR 09/14/17 elevated at 89 * Bone Scan performed 09/17/17 to check for Osteomyelitis at the Sacrum: results are pending * Meropenem 500 mg IV Q12H (09/13/17 through 09/16/17: which will cover the Enterbacter in the Sputum 09/07/17 and the possibility of Sacral Osteomyelitis) * Antibiotics as of 09/17/17:Tigecycline (09/16/17: which will cover the VRE in Sacral Wound Culture 09/14/17 and the possibility of Sacral Osteomyelitis) and Diflucan 200 mg PO 1x/day (09/13/17: which will cover with Yeast in the Sputum, Urine, and Sacral Wound Culture) Status: Acute (6) Pneumonia Assessment and Plan: * Pulmonary (Dr. Mena) on board-->help appreciated; Dr. Jeffers covering while Dr. Mena away * Infectious Disease (Dr. Lawrence)-->help appreciated * Chest xray (9/29): right arm PICC is seen with the tip of distal subclavian vein. PICC may be used * Rapid A strep, Influenza A and B studies, Urine Legionella, Mycoplasma studies = Negative * Florastor 250mg PO bid * 08/07/17: +Strep Pneumoniae in the urine * Meropenem 500mg IV Q 8 hours (08/14/17 through 08/18/17) and Zosyn 2.25 mg IV Q6H (08/13/17 through 08/18/17) * Cefepime 1 gm IV Q24H: started on 08/19/17 and was discontinued by ID Dr. Lawrence on 08/30/17: monitor vitals and labs * s/p right posterior chest tube 08/19-08/24 * Sputum Culture 08/19/17 shows No growth * Pleural fluid 08/19/17: No growth * 09/07/17 Sputum: Enterocloace Bacter and Yeast Species: See Antibiotic treatment in previous Assessment and Plan * Sputum 09/10/17 shows NO AFB Status: Acute (7) HTN (hypertension) Assessment and Plan: * Lopressor 50mg PO bid * Lisinopril 5mg PO daily Status: Chronic (8) CKD (chronic kidney disease) on Dialysis Assessment and Plan: * Dr. Miranda (nephrology) consulted on the case * Hx of CKD-->Started on dialysis 08/15/17 * Kurtis catheter placed and removed 08/22 * s/p Right Chest Permcath 08/22 * Patient is on dialysis M-W-F; oliguric * Phoslo 1334mg GT TID * Epoetin 10,000 unit IV MWF Status: Acute (9) Diabetes mellitus Assessment and Plan: * Accuchecks Q6H * HgbA1c 8.4 * Started peg feedings on 08/26/17 * Nepro-->50 ml/hour but this was held 09/13/17 due suspicion of Bowel Obstruction as NO bowel Movement since 09/07/17. This was restarted on after NO obstruction was observed on Obstruction Series 09/13/17 and after multiple bowel movement s/p Fleet Enema 09/13/17 (10) HLD (hyperlipidemia) Assessment and Plan: * 08/27: held Crestor 10 mg PO HS secondary to rise in LFTs * 08/29: Liver function tests improving; waiting to restart statin Status: Chronic (11) Anemia Assessment and Plan: * Heme-oncology (Dr. Giles bender) on board-->help appreciated * Likely iron deficiency anemia based on prior admissions * Ferritin 27.4, Iron 22, TIBC 322, % Saturation 7 * Ferric Sodium Gluconate 125mg IVPB daily (active 08/08-08/16) * Procrit 10,000 units -- * Monitor Hgb/Hct: stable Status: Chronic (12) History of DVT (deep vein thrombosis) Assessment and Plan: * Patient was previously on Eliquis for a prior history of DVT. * Repeat dopplers 08/09/17 are negative for DVT * Off Heparin Drip 08/17/17 * Started Eliquis 2.5mg PO BID for atrial flutter and history of DVT Status: Chronic (13) UTI Assessment and Plan: * Infectious disease (Dr. Lawrence) on board-->help appreciated * Exchange jaquez out and repeat urine cultures * Urine Culture 08/12/17 showed Gram Negative Rods: NO identification and NO sensitivities were performed * Meropenem 500mg IV Q 12hours (active since 08/14/17 through 08/18/17) to cover for UTI per ID * Repeat Urine Culture 08/18/17 shows NO growth * 08/25: reculture in light of leukocytosis * 08/27: pending urine studies * 08/30: Urine Culture 08/27/17 showed Yeast Species but no antifungal at that time secondary to recent history of Elevated LFTs * Urine Culture 09/13/17 showed Yeast Species: he is on Diflucan Status: Chronic (14) Confusion; Alzheimer's Dementia Assessment and Plan: * Per daughter, patient has been getting bouts of confusion over the past year but appears at baseline. Patient has not seen formal neurology as outpatient per daughter. Per , prior to event, noted Alzheimers' disease dx one year ago * CT head w/o contrast (08/10/17):acute os subacute lacune infarct is not excluded in the left basal ganglia inferiorly with definitive chronic lacune identified in the right basal ganglia superiorly. No acute or subacute lobar brain infarction is appreciable by standard CT criteria. Mild age-related neuro degenerative changes are identifed. No acute intracranial hemorrhage or mass is identified throughout * 08/26: Off Sedation-->patient moves all extremities randomly but does not follow directions * 08/27: off sedation-->patient is very calm, smiles at his * 08/28: off sedation-->patient is very calm Status: Chronic (15) Unstageable Sacral Ulcer, Left Ear Auricle Ulcer, Right Heal Ulcer Assessment and Plan: * Wound care on board * WOUND CARE NOTE (08/26)-->Pt with a sacral unstageable being treated with medihoney. No changes to dimensions at this time. Also, pt favoring Left side of head and has developed a 1x1 serous filled blister on his left ear. Primary nurse placed duoderm on the ear. Wound care nurse left duoderm in place , and recommends leaving it on until it falls off on its own. Pt has been NPO for several days, new peg inserted yesterday. Will be starting glucerna tube feedings later today. Albumin 3.3 * Turn q 2 hours * medihoney on unstageable ulcer * duoderm on left ear aurical ulcer: this is healed as of 09/15/17 * Prevalon Boots for Right Heal Blister 09/13/17 * 09/02/17: examined with Wound Care Nurse Emeka Samuel and periphery of the Sacral Wound is pink with some bleeding however center is still black and therefore still unstageable. Continue spray with Cavelon followed by thick coating with MediHoney followed by covering with OptiFoam once a day. * 09/03/17: Change of sacral ulcer dressing was performed by me with assitance from Nurse Lyman * 09/04/17: 09/03/17: Change of sacral ulcer dressing was performed by me with assistance from ALEXANDRA Unger * Per wound care note (09/07): sacral ulcer is stable per wound care nurse * 09/14/17: Sacral Ulcer is unstageable and area of blackness fills entire circumference. General Surgery consult placed to see if debridement is necessary. Continue Cavelon [place] followed by paulina thick coating of MediHoney followed by covering with OptiFoam. * 09/15/17: Surgery Team debrided Sacral Ulcer and Bone Scan will need to be followed up which was performed 09/17/17 * 09/18/17: With the help of Nurse Guzman, applied Cavelon [place] followed by thick coating of MediHoney followed by covering with OptiFoam * 09/19/17: Dressing for Sacral Ulcer already changed before my exam. Explained to Nurse Megan that best application of MediHoney would be to cover the padding of the OptiFoam with it and then apply the OptiFoam to the ulcer. Status: Acute (16) Elevated LFTs Assessment and Plan: * 08/27: Yina * Discussed with cardiology-->changed amiodarone 200mg PO tid to amiodaron 200mg PO daily * D/C tylenol * Held Statin * patient is also on Rocephin to cover for pneumonia * Will not start antifungal * 08/29: starting to down trending since change in amiodarone dose; awaiting to restart statin * 08/30: continues to trend down. Amiodarone was discontinued * 09/01: AST, ALT, Alk Phos still elevated but stable * 09/02: AST, ALT, Alk Phos still elevated but stable * 09/03: LFTs stable * 09/04: LFTs stable Status: Acute (17). Hx Constipation * Monitor bowel movement * Multiple bowel movements on 09/13/17 and 09/14/17 that are well formed s/p Fleet Enema on 09/13/17 * 09/15/17: NO bowel movement * 09/16/17: Soft pasty bowel movement * 09/17/17: Soft pasty bowel movement * 09/18/17: NO bowel movement * 09/19/17: ordered one dose of Lactulose 20 gm via PEG as still no bowel movement (18). Hyponatremia * 09/19/17: at 127 monitor for now (19). Prophylactic measure Assessment and Plan: * Pepcid 20mg PO daily * Start Eliquis 2.5mg PO BID * s/p peg placement 08/25 * s/p trachesostomy 08/22 * s/p Permcath placement 08/22 removal Kurtis catheter * s/p right posterior chest tube 08/19-->removed 08/24 * s/p Right Arm PICC 08/26 * (Jovita Serrano): -->number provided to the nurse- ->consented for peg placement; discussed about LTAC 08/26 * Spoke with Dr. Pickard, MARIAJOSE regarding patient's hospitalization up until this point 08/2609/01/17: Dr. Cullen Barth spoke with the patient's [place] with the assistance of Nurse Beth on 3 tower (as multiple attempts of using [employer]d indicated that all of the [place] translators were busy) and explained all of the patient's diagnosises. 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 Her ultimate wish is to take patient to [facility] where their children live. I explained to patient that I would not know how that would be coordinated but that the Social Workers/Brick Layer at LTAC may be of assistance in this regard. I also informed her that I am not aware of any insurance company that would finance this request. She understands that the patient is awaiting insurance approval for LTAC. 09/01/17 and 09/02/17: Dr. Cullen Barth spoke with Food Production Associate Demetria and we are still awaiting insurance authorization for LTAC placement. 09/05/17: Spoke with nehal, healthcare social worker, wean trials sent to LTAC pending approval no word yet regarding approval. Ordered for repeat cultures given uptrend in white count. 09/06/17: pending repeat cultures in light of elevated procalcitonin; ID recommended to reculture. Note: patients PICC lined had clogged ports. Red port remains clogged in spite of cath rafaela. Blue port improved after cath rafaela. Possible may need to remove line to r/o infected line. Strong suspicion due to patient's pneumonia given he has thick secretions. 09/07/17: Infectious disease. pending repeat cultures in light of elevated procalcitonin; Note: patients PICC lined had clogged ports. Red port remains clogged in spite of cath rafaela. Blue port improved after cath rafaela. Hip xray negative for acute fracture. There are no noted falls. 09/08/17: Patient denied for LTAC; awaiting for other options from case management/social work. Resident Daniel spoke with Dr. Cortés, patient be transferred under regular bed, when bed is available. Infectious disease on board; Patient started on IV Vancomycin in light of + blood culture. Pending chest xray. 09/09/17: Patient denied for LTAC; awaiting for other options from case management/social work with kamlesh verdin support. Patient started on IV Vancomycin MWF in light of + blood culture. Pending chest xray. F/U sputum with ID. f/u latest blood cultures. 09/13/17: Rapid response for low blood pressure and elevated WBC likely Septic Shock. Started on Levophed, added Meropenem to Vancomycin and 1 dose of Gentamycin given after speaking with ID. Ordered Obstruction Series as no bowel movement since 09/07/17. F/U Shock Panel. Discussed with ICU Resident to arrange for Change of Right Arm Midline line and Trach Collar. 09/14/17: Will await results of Blood Culture 09/13/17 to determine if the Right Arm Midline, Right Chest Perm Cath, and Trach Collar needs to be changed. Spoke with Food Production Associate Demetria in ICU and patient information has been sent to [facility] (they accept patients on Trach) and she is awaiting to hear back from them before submitting approval request to insurance [employer]. 09/15/17: Passy Flex Trach placed by Product Analyst. Surgical Team for debridement of Sacral Ulcer. Spoke with patient's ([place] Den[place] [id number]) and explained/updated her on patient condition and obtained consent for sacral ulcer debridement. 09/16/17: Still awaiting performance of Sacral Bone Scan 09/17/17: Bone Scan performed and awaiting results 09/18/17: Awaiting Bone Scan Report 09/19/17: Still awaiting Bone Scan Report. Spoke again with Food Production Associate Demetria and NO word yet from [facility] (they do treat patients with Trachs). 09/20/17: Repeat Wound culture and urine culture sent. Dressing changed with medihoney and optifoam. No other changes at this time. Still waiting for approval for [facility] 09/21/17: No changes at this time. Will continue to change wound dressing Q3D and follow up with case management for for residential transfer. 09/22/17: Dressing changed today with medihoney. Healing appropriately. Talked to case management. Still no update from alf transfer. Bone scan negative for osteo. Repeat wound cultures continue to grow Enterococcus. Will follow up sensitivities 09/26/17: Dialysis today. Dressing changed with optifoam and medihoney (nickel thick). VRE/germania in wound. Talked to case management. No updates at this time <Cullen Barth - Last Filed: 09/26/17 21:02> Objective - Vital Signs/Intake and Output Vital Signs (last 24 hours): Temp Pulse Resp BP Pulse Ox 98.2 F 117 H 20 138/67 98 09/26/17 17:24 09/26/17 17:24 09/26/17 17:24 09/26/17 17:24 09/26/17 17:24 Intake and Output: 09/26/17 09/27/17 18:59 06:59 Intake Total 600 Balance 600 - Medications Medications: Current Medications Acetylcysteine (Acetylcysteine 20%) 4 ml [facility]H RQ[facility] Last Admin: 09/26/17 19:20 Dose: 4 ml Albuterol/Ipratropium (Duoneb 3 Mg/0.5 Mg (3 Ml) Ud) 3 ml [facility]H RQ6 [facility] Last Admin: 09/26/17 19:20 Dose: 3 ml Apixaban (Eliquis) 2.5 mg PO BID [facility] Last Admin: 09/26/17 18:21 Dose: 2.5 mg Aspirin (Aspirin Chewable) 81 mg PO DAILY [facility] Last Admin: 09/26/17 14:51 Dose: 81 mg Calcium Acetate (Phoslo) 1,334 mg GT TID [facility] Last Admin: 09/26/17 18:21 Dose: 1,334 mg Famotidine (Pepcid) 20 mg PO DAILY [facility] Last Admin: 09/26/17 14:50 Dose: 20 mg Fluconazole (Diflucan) 200 mg PO DAILY [facility] Last Admin: 09/26/17 14:57 Dose: 200 mg Insulin Aspart (Novolog) 0 unit SC Q6 [facility] PRN Reason: Protocol Last Admin: 09/26/17 18:18 Dose: 1 unit Rosuvastatin Calcium (Crestor) 10 mg PO HS [facility] Last Admin: 08/26/17 22:41 Dose: 10 mg Saccharomyces Boulardii (Florastor) 250 mg PO BID [facility] Last Admin: 09/26/17 18:20 Dose: 250 mg - Labs Labs: 09/24/17 06:27 09/24/17 06:27 PT 13.9 SECONDS (9.7-12.2) H 08/24/17 06:08 INR 1.2 08/24/17 06:08 APTT 55 SECONDS (21-34) H D 08/17/17 06:12 Attending/Attestation - Attestation I have personally seen and examined this patient.: Yes I have fully participated in the care of the patient.: Yes I have reviewed all pertinent clinical information, including history, physical exam and plan: Yes Notes (Text): 09/26/17 20:58 Patient was seen and examined at 7 PM 09/26/17 552 B. Assessment and Plan were thoroughly gone over with the resident. Also note: Bone Scan 09/17/17 was NEGATIVE for ostemyelitis Repeat Sacral Wound Culture 09/20/17 showed VRE: Tigecycline 50 mg IV Q12H Repeat Urine Culture 09/20/17 showed Yeast: Diflucan 200 mg PO 1x/day I spoke wit Wound Care Nurse Emeka Samuel today and Sacral Ulcer requires MediHoney with Optifoam dressing change daily. Right Heal Ulcer is purple. I spoke with Nurse Vee and stressed that this patient must be turned- repositioned every 2 hours including his feet in the [employer] Boots. I spoke with Food Production Associate Tiffanie and [employer] is negotiating with [place] [employer]. Cullen Barth D.O.
--- NOTE | 2017-09-26 14:16 | CP.PCM.PN ---
Subjective - Date & Time of Evaluation Date of Evaluation: 09/26/17 Time of Evaluation: 14:13 - Subjective Subjective: stable dialysis just now- UF 1200ml Appears same; awake and confused Remains on trach collar No new labs Objective - Vital Signs/Intake and Output Vital Signs (last 24 hours): Temp Pulse Resp BP Pulse Ox 98.3 F 72 21 92/60 L 100 09/26/17 13:15 09/26/17 13:15 09/26/17 13:15 09/26/17 13:15 09/26/17 13:15 Intake and Output: 09/26/17 09/26/17 06:59 18:59 Intake Total 500 Output Total 25 Balance 475 - Medications Medications: Current Medications Acetylcysteine (Acetylcysteine 20%) 4 ml INH RQ6 [facility] Last Admin: 09/26/17 13:30 Dose: Not Given Albuterol/Ipratropium (Duoneb 3 Mg/0.5 Mg (3 Ml) Ud) 3 ml INH RQ6 [facility] Last Admin: 09/26/17 13:30 Dose: Not Given Apixaban (Eliquis) 2.5 mg PO BID [facility] Last Admin: 09/26/17 10:00 Dose: Not Given Aspirin (Aspirin Chewable) 81 mg PO DAILY [facility] Last Admin: 09/26/17 10:00 Dose: Not Given Calcium Acetate (Phoslo) 1,334 mg GT TID [facility] Last Admin: 09/26/17 13:27 Dose: Not Given Famotidine (Pepcid) 20 mg PO DAILY [facility] Last Admin: 09/26/17 10:00 Dose: Not Given Fluconazole (Diflucan) 200 mg PO DAILY [facility] Last Admin: 09/26/17 10:00 Dose: Not Given Insulin Aspart (Novolog) 0 unit SC Q6 [facility] PRN Reason: Protocol Last Admin: 09/26/17 12:43 Dose: Not Given Rosuvastatin Calcium (Crestor) 10 mg PO HS [facility] Last Admin: 08/26/17 22:41 Dose: 10 mg - Labs Labs: 09/24/17 06:27 09/24/17 06:27 PT 13.9 SECONDS (9.7-12.2) H 08/24/17 06:08 INR 1.2 08/24/17 06:08 APTT 55 SECONDS (21-34) H D 08/17/17 06:12 - Constitutional Appears: No Acute Distress, Chronically Ill - Head Exam Head Exam: ATRAUMATIC, NORMAL INSPECTION - Eye Exam Eye Exam: EOMI, Normal appearance - Neck Exam Neck Exam: Normal Inspection. absent: Tenderness - Respiratory Exam Respiratory Exam: Clear to Ausculation Bilateral, NORMAL BREATHING PATTERN - Cardiovascular Exam Cardiovascular Exam: REGULAR RHYTHM, +S1 - GI/Abdominal Exam GI & Abdominal Exam: Soft. absent: Tenderness - Neurological Exam Neurological Exam: Altered, Motor Sensory Deficit - Skin Skin Exam: Dry, Warm Assessment and Plan (1) Acute on chronic renal failure Status: Resolved (2) CAD (coronary artery disease) Status: Chronic (3) CHF exacerbation Status: Chronic (4) Type 2 diabetes mellitus with diabetic nephropathy Status: Acute (5) Cardiorenal disease Status: Acute (6) ESRD (end stage renal disease) Status: Acute - Assessment and Plan (Free Text) Plan: Same meds Same dialysis MWF Await LTC transfer
[2017-09-26] MEDS: Saccharomyces Boulardi 250 mg Cap PO SCH (18:20)
--- NOTE | 2017-09-26 22:29 | CP.PCM.PN ---
Subjective - Date & Time of Evaluation Date of Evaluation: 09/26/17 Time of Evaluation: 08:10 - Subjective Subjective: Patient seen and evaluated No cardiac events noted Objective - Vital Signs/Intake and Output Vital Signs (last 24 hours): Temp Pulse Resp BP Pulse Ox 98.2 F 117 H 20 138/67 98 09/26/17 17:24 09/26/17 17:24 09/26/17 17:24 09/26/17 17:24 09/26/17 17:24 Intake and Output: 09/26/17 09/27/17 18:59 06:59 Intake Total 600 Balance 600 - Medications Medications: Current Medications Acetylcysteine (Acetylcysteine 20%) 4 ml INH RQ6 [facility] [place] Last Admin: 09/26/17 19:20 Dose: 4 ml Albuterol/Ipratropium (Duoneb 3 Mg/0.5 Mg (3 Ml) Ud) 3 ml INH RQ6 [facility] Last Admin: 09/26/17 19:20 Dose: 3 ml Apixaban (Eliquis) 2.5 mg PO BID [facility] [place] Last Admin: 09/26/17 18:21 Dose: 2.5 mg Aspirin (Aspirin Chewable) 81 mg PO DAILY [facility] [place] Last Admin: 09/26/17 14:51 Dose: 81 mg Calcium Acetate (Phoslo) 1,334 mg GT TID [facility] Last Admin: 09/26/17 18:21 Dose: 1,334 mg Famotidine (Pepcid) 20 mg PO DAILY [facility] [place] Last Admin: 09/26/17 14:50 Dose: 20 mg Fluconazole (Diflucan) 200 mg PO DAILY [facility] [place] Last Admin: 09/26/17 14:57 Dose: 200 mg Insulin Aspart (Novolog) 0 unit SC Q6 [facility] [place] PRN Reason: Protocol Last Admin: 09/26/17 18:18 Dose: 1 unit Rosuvastatin Calcium (Crestor) 10 mg PO HS [facility] [place] Last Admin: 08/26/17 22:41 Dose: 10 mg Saccharomyces Boulardii (Florastor) 250 mg PO BID [facility] [place] Last Admin: 09/26/17 18:20 Dose: 250 mg - Labs Labs: 09/24/17 06:27 09/24/17 06:27 PT 13.9 SECONDS (9.7-12.2) H 08/24/17 06:08 INR 1.2 08/24/17 06:08 APTT 55 SECONDS (21-34) H D 08/17/17 06:12
[2017-09-27] MEDS: Albuterol-Ipratrop 3 mg / 0.5 (3 ml) UD INH SCH ×4 (01:06→20:09)
[2017-09-27] MEDS: Acetylcysteine 20% Inhal Soln (4ml) INH SCH ×4 (01:06→20:09)
[2017-09-27] MEDS: (Novolog) Insulin Aspart, Recombinant 100 u/ml 10 ml vial SC SCH ×4 (07:43→18:13)
[2017-09-27] MEDS: Saccharomyces Boulardi 250 mg Cap PO SCH ×2 (10:07→18:01)
[2017-09-27 14:55] LABS: BASO # 0.1 K/uL (0.0-0.2); BASO % 0.8 % (0.0-2.0); EOS # 0.4 K/uL (0.0-0.7); EOS % 3.5 % (0.0-4.0); HEMATOCRIT 28.6 % (35.0-51.0); LYMPH # 2.6 K/uL (1.0-4.3); LYMPH % 22.4 % (20.0-40.0); MEAN CELL VOLUME 79.1 fL (80.0-94.0); MEAN CORPUSCULAR HEMOGLOBIN 24.5 pg (27.0-31.0); MEAN CORPUSCULAR HGB CONC 30.9 g/dL (33.0-37.0); MEAN PLATELET VOLUME 7.5 fL (7.2-11.7); MONO # 0.8 K/uL (0.0-0.8); MONO % 6.9 % (0.0-10.0); RED CELL DISTRIBUTION WIDTH 24.5 % (11.5-14.5); WHITE BLOOD COUNT 11.6 K/uL (4.8-10.8)
[2017-09-27 15:04] LABS: POTASSIUM 3.8 mmol/L (3.6-5.2)
--- NOTE | 2017-09-27 15:04 | CP.PCM.PN ---
<Sina White - Last Filed: 09/27/17 15:57> Subjective - Date & Time of Evaluation Date of Evaluation: 09/27/17 Time of Evaluation: 15:00 - Subjective Subjective: Medicine Progress Note for Dr. Barth HPI: Patient seen and examined at bedside. Looks more comfortable and more aware. at bedside. ROS unattainable. Objective - Vital Signs/Intake and Output Vital Signs (last 24 hours): Temp Pulse Resp BP Pulse Ox 97.8 F 98 H 22 137/70 95 09/27/17 08:00 09/27/17 08:00 09/27/17 08:00 09/27/17 08:00 09/27/17 08:00 - Medications Medications: Current Medications Acetylcysteine (Acetylcysteine 20%) 4 ml INH RQ6 [facility] Last Admin: 09/27/17 13:13 Dose: 4 ml Albuterol/Ipratropium (Duoneb 3 Mg/0.5 Mg (3 Ml) Ud) 3 ml INH RQ6 [facility] Last Admin: 09/27/17 13:13 Dose: 3 ml Apixaban (Eliquis) 2.5 mg PO BID [facility] Last Admin: 09/27/17 10:07 Dose: 2.5 mg Aspirin (Aspirin Chewable) 81 mg PO DAILY [facility] Last Admin: 09/27/17 10:07 Dose: 81 mg Calcium Acetate (Phoslo) 1,334 mg GT TID [facility] Last Admin: 09/27/17 10:07 Dose: 1,334 mg Famotidine (Pepcid) 20 mg PO DAILY [facility] Last Admin: 09/27/17 10:07 Dose: 20 mg Fluconazole (Diflucan) 200 mg PO DAILY [facility] Last Admin: 09/27/17 10:07 Dose: 200 mg Insulin Aspart (Novolog) 0 unit SC Q6 [facility] PRN Reason: Protocol Last Admin: 09/27/17 12:11 Dose: 2 unit Rosuvastatin Calcium (Crestor) 10 mg PO HS [facility] Last Admin: 08/26/17 22:41 Dose: 10 mg Saccharomyces Boulardii (Florastor) 250 mg PO BID [facility] Last Admin: 09/27/17 10:07 Dose: 250 mg - Labs Labs: 09/24/17 06:27 09/24/17 06:27 PT 13.9 SECONDS (9.7-12.2) H 08/24/17 06:08 INR 1.2 08/24/17 06:08 APTT 55 SECONDS (21-34) H D 08/17/17 06:12 - Constitutional Appears: Chronically Ill - Head Exam Head Exam: ATRAUMATIC, NORMAL INSPECTION, NORMOCEPHALIC - Eye Exam Eye Exam: EOMI Pupil Exam: NORMAL ACCOMODATION - ENT Exam ENT Exam: Mucous Membranes Moist - Neck Exam Additional comments: trach - Respiratory Exam Respiratory Exam: Clear to Ausculation Bilateral, NORMAL BREATHING PATTERN - Cardiovascular Exam Cardiovascular Exam: REGULAR RHYTHM - GI/Abdominal Exam GI & Abdominal Exam: Soft, Normal Bowel Sounds. absent: Distended, Tenderness - Extremities Exam Extremities Exam: absent: Joint Swelling, Tenderness - Back Exam Additional comments: 10x10 unstageable ulcer with healthy granulation tissue. No necrotic tissue. optifoam dressing with medihoney. Clear dry and intact - Neurological Exam Neurological Exam: Alert, Awake - Psychiatric Exam Psychiatric exam: Normal Affect, Normal Mood - Skin Skin Exam: Dry, Intact, Normal Color, Warm Assessment and Plan - Assessment and Plan (Free Text) Assessment: (1) Acute Respiratory Failure ARDS Cardiac Arrest Pulmonary Edema Nonstemi Assessment and Plan: * Code Blue on 08/10: asystole, cardiopulmonary resuscitative measures initiated , requiring 3 epis, bicarbonate, ROSC achieved and intubated and brought to the ICU for further management; Patient in the ICU from 08/10 until present. * Pulmonary: Dr Mena (Dr. Jeffers covering until 09/04/17)-->help appreciated * Cardiology: Dr. Cortés on board-->help appreciated * GI (Dr. Wills) on board-->help appreciated * S/P Tracheostomy 08/22 * S/P Peg tube placement 08/25 * s/p insertion of right posterior chest tube 08/19-->removed 08/24/17 * There was consideration for possible thoracentesis of left side pleural effusion, evaluated by IR, there is no fluid to drain per Dr. Gross * Chest xray (08/26): right arm PICC is seen with the tip of distal subclavian vein. PICC may be used * Per cardiology, * Restart Aspirin 81mg PO daily * Patient does not need Plavix at this time * Recommend for Eliquis 2.5mg PO BID for atrial flutter * 08/27: patient is pending LTAC, he went eventually need cardiac catheterization when he has stabilized. Held statin secondary to elevated LFTs. Discussed with Dr. Cortés, lowered Amiodarone 200mg PO daily * 08/28: patient is pending LTAC, he went eventually need cardiac catheterization when he has stabilized. Liver function tests improving * 08/29: Pediatric Radiologist Nehal has sent request to insurance for authorization for LTAC-->pending * 09/06: pending social work/case management approval for LTAC * 09/07: pending social work/case management approval for LTAC * 09/08: Unable to get approval for LTAC; pending other options * 09/09: Transferred from step-down ICU to the floors * 09/13: Trasnferred back to ICU S/P Rapid Response for low blood pressure * 09/14: Currently on Acetylcysteine 20 % Neb Q6H and Duoneb Q6H * 09/15: Passy Flex Trach placed by Home School Teacher (2) Abnormal Stress Test History of AICD History of Coronary Artery Disease Assessment and Plan: * Cardiology (Dr. Cortés) on board-->help appreciated * TSH: 1.16; T4: 1.53 * Echocardiogram (08/08/17): left ventricle systolic function is severely impaired. EF: 25-30%; global hypokinesis of left ventricle mild aortic regurgitation. Mitral regurgitation is moderate. Moderate-severe pulmonary hypertension * Plan was for cardiac catheterization; delayed due to acute renal failure; Attempted gentle hydration and mucomyst on 08/09 to optimize prior to cath * On 08/10, patient was in asystole, ACLS protocol, ROSC achieved, intubated and transfered to the ICU. Patient in acute pulmonary edema. * Patient hospitalized in the ICU since 08/10/17 to present. * Medications: * Aspirin 81mg PO daily * Plavix d/c by cardiology * Lopressor 50mg PO bid * d/c Crestor 10mg POqHS secondary to rise in LFTS 08/27--->monitor LFTs daily * ARB d/c secondary to acute renal failure * 08/27: patient is pending LTAC, he went eventually need cardiac catheterization when he has stabilized. Held statin secondary to elevated LFTs. Discussed with Dr. Cortés, lowered Amiodarone 200mg PO daily * 08/28: He will eventually need cardiac catheterization when he has stabilized. Liver function tests improving. Statin is on hold (3) Atrial flutter Assessment and Plan: * Cardiology (Dr. Cortés) on board-->help appreciated * Refractory to Lopressor/Cardizem IVP * Eliquis 2.5mg PO bid * Amiodarone bolus-->Amiodarine drip on 08/24-->converted to Amiodarone 200mg PO TID on 08/26 and this was decreased to 200 mg 1x/day due to increased LFTs * 08/27: Discussed with Dr. Cortés, will lower Amiodarone 200mg PO daily and monitor LFTs. Statin held and tylenol d/c * 08/29: patient is pending LTAC, he will eventually need cardiac catheterization when he has stabilized. Liver function tests improving. Statin is on hold due to the elevated LFTs * 08/30: Cardiology discontinued the Amiodarone * 09/07: Held eliquis; will need to resume * 09/09: Eliquis resumed, off Amiodarone Status: Acute (4) Acute on Chronic Systolic CHF exacerbation Assessment and Plan: * Cardiology (Dr. Cortés) on board-->help appreciated * Transferred to the ICU on 08/10 following cardiac arrest and intubation. * Echocardiogram (08/08/17): left ventricular systolic function is severely impaired. EF: 25-30%; global hypokinesis of left ventricle mild aortic regurgitation. Mitral regurgitation is moderate. Moderate-severe pulmonary hypertension * Medications: * Aspirin 81mg PO daily * Plavix d/c by cardiology * Lopressor 50mg PO bid * d/c Crestor 10mg POqHS on 08/27 secondary to rise in LFTs * ARB d/c secondary to acute renal failure Status: Acute (5) Leukocytosis Assessment and Plan: * Patient's white count downtrending * Pleural Fluid 08/19/17 did not show any growth * Blood cultures (08/26): no growth X5 days * UA and urine culture (08/27): Urine Culture showed Yeast Species. * Patient has elevated LFTs-->did not start anti-fungal in light of LFTs New: * 09/05/17 Blood: gram positive cocci-->pending speciation * 09/05/17 Blood: no growth after 4 days * 09/07/17 Legionella Culture: negative * 09/07/17 Mycobacteria: negative * 09/07/17 Sputum: Enterocloace Bacter; yeast * 09/07/17 Blood: negative X 48 hours * 09/07/17 Blood: negative X 48 hours * 09/06: stool culture pending; has not had diarrhea or bowel movement * 09/07: Dr. Zimmer (covering Dr. Lawrence) to see the patient given elevated procalcitonin * Blood Culture 09/13/17 is negative to date and Urine Culture 09/13/17 showed Yeast Species * 09/14: Could this be secondary to the Septic Shock? Secondary to Osteomyelitis of the Sacrum? 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) and Meropenem 500 mg IV Q8H (09/13/17 through 09/16/17), Diflucan 200 mg PO 1x/day (09/13/17), Bactrim 10 mL PO Q12H (09/12/17 through 09/16/17), Tigecycline 50 mg IV Q12H (09/16/17 started because of VRE on Sacrum Wound Culture 09/14/17) * ESR 09/14/17 elevated at 89 * Bone Scan performed 09/17/17 to check for Osteomyelitis at the Sacrum: results are pending * Meropenem 500 mg IV Q12H (09/13/17 through 09/16/17: which will cover the Enterbacter in the Sputum 09/07/17 and the possibility of Sacral Osteomyelitis) * Antibiotics as of 09/17/17:Tigecycline (09/16/17: which will cover the VRE in Sacral Wound Culture 09/14/17 and the possibility of Sacral Osteomyelitis) and Diflucan 200 mg PO 1x/day (09/13/17: which will cover with Yeast in the Sputum, Urine, and Sacral Wound Culture) Status: Acute (6) Pneumonia Assessment and Plan: * Pulmonary (Dr. Mena) on board-->help appreciated; Dr. Jeffers covering while Dr. Rajesh away * Infectious Disease (Dr. Lawrence)-->help appreciated * Chest xray (08/26): right arm PICC is seen with the tip of distal subclavian vein. PICC may be used * Rapid A strep, Influenza A and B studies, Urine Legionella, Mycoplasma studies = Negative * Florastor 250mg PO bid * 08/07/17: +Strep Pneumoniae in the urine * Meropenem 500mg IV Q 8 hours (08/14/17 through 08/18/17) and Zosyn 2.25 mg IV Q6H (08/13/17 through 08/18/17) * Cefepime 1 gm IV Q24H: started on 08/19/17 and was discontinued by ID Dr. Lawrence on 08/30/17: monitor vitals and labs * s/p right posterior chest tube 08/19-08/24 * Sputum Culture 08/19/17 shows No growth * Pleural fluid 08/19/17: No growth * 09/07/17 Sputum: Enterocloace Bacter and Yeast Species: See Antibiotic treatment in previous Assessment and Plan * Sputum 09/10/17 shows NO AFB Status: Acute (7) HTN (hypertension) Assessment and Plan: * Lopressor 50mg PO bid * Lisinopril 5mg PO daily Status: Chronic (8) CKD (chronic kidney disease) on Dialysis Assessment and Plan: * Dr. Miranda (nephrology) consulted on the case * Hx of CKD-->Started on dialysis 08/15/17 * Kurtis catheter placed and removed 08/22 * s/p Right Chest Permcath 08/22 * Patient is on dialysis M-W-; oliguric * Phoslo 1334mg GT TID * Epoetin 10,000 unit IV MWF Status: Acute (9) Diabetes mellitus Assessment and Plan: * Accuchecks Q6H * HgbA1c 8.4 * Started peg feedings on 08/26/17 * Nepro-->50 ml/hour but this was held 09/13/17 due suspicion of Bowel Obstruction as NO bowel Movement since 09/07/17. This was restarted on after NO obstruction was observed on Obstruction Series 09/13/17 and after multiple bowel movement s/p Fleet Enema 09/13/17 (10) HLD (hyperlipidemia) Assessment and Plan: * 08/27: held Crestor 10 mg PO HS secondary to rise in LFTs * 08/29: Liver function tests improving; waiting to restart statin Status: Chronic (11) Anemia Assessment and Plan: * Heme-oncology (Dr. Giles bender) on board-->help appreciated * Likely iron deficiency anemia based on prior admissions * Ferritin 27.4, Iron 22, TIBC 322, % Saturation 7 * Ferric Sodium Gluconate 125mg IVPB daily (active 08/08-08/16) * Procrit 10,000 units M-- * Monitor Hgb/Hct: stable Status: Chronic (12) History of DVT (deep vein thrombosis) Assessment and Plan: * Patient was previously on Eliquis for a prior history of DVT. * Repeat dopplers 08/09/17 are negative for DVT * Off Heparin Drip 08/17/17 * Started Eliquis 2.5mg PO BID for atrial flutter and history of DVT Status: Chronic (13) UTI Assessment and Plan: * Infectious disease (Dr. Lawrence) on board-->help appreciated * Exchange jaquez out and repeat urine cultures * Urine Culture 08/12/17 showed Gram Negative Rods: NO identification and NO sensitivities were performed * Meropenem 500mg IV Q 12hours (active since 08/14/17 through 08/18/17) to cover for UTI per ID * Repeat Urine Culture 08/18/17 shows NO growth * 08/25: reculture in light of leukocytosis * 08/27: pending urine studies * 08/30: Urine Culture 08/27/17 showed Yeast Species but no antifungal at that time secondary to recent history of Elevated LFTs * Urine Culture 09/13/17 showed Yeast Species: he is on Diflucan Status: Chronic (14) Confusion; Alzheimer's Dementia Assessment and Plan: * Per daughter, patient has been getting bouts of confusion over the past year but appears at baseline. Patient has not seen formal neurology as outpatient per daughter. Per , prior to event, noted Alzheimers' disease dx one year ago * CT head w/o contrast (08/10/17):acute os subacute lacune infarct is not excluded in the left basal ganglia inferiorly with definitive chronic lacune identified in the right basal ganglia superiorly. No acute or subacute lobar brain infarction is appreciable by standard CT criteria. Mild age-related neuro degenerative changes are identifed. No acute intracranial hemorrhage or mass is identified throughout * 08/26: Off Sedation-->patient moves all extremities randomly but does not follow directions * 08/27: off sedation-->patient is very calm, smiles at his * 08/28: off sedation-->patient is very calm Status: Chronic (15) Unstageable Sacral Ulcer, Left Ear Auricle Ulcer, Right Heal Ulcer Assessment and Plan: * Wound care on board * WOUND CARE NOTE (08/26)-->Pt with a sacral unstageable being treated with medihoney. No changes to dimensions at this time. Also, pt favoring Left side of head and has developed a 1x1 serous filled blister on his left ear. Primary nurse placed duoderm on the ear. Wound care nurse left duoderm in place , and recommends leaving it on until it falls off on its own. Pt has been NPO for several days, new peg inserted yesterday. Will be starting glucerna tube feedings later today. Albumin 3.3 * Turn q 2 hours * medihoney on unstageable ulcer * duoderm on left ear aurical ulcer: this is healed as of 09/15/17 * Prevalon Boots for Right Heal Blister 09/13/17 * 09/02/17: examined with Wound Care Nurse Emeka Samuel and periphery of the Sacral Wound is pink with some bleeding however center is still black and therefore still unstageable. Continue spray with Cavelon followed by thick coating with MediHoney followed by covering with OptiFoam once a day. * 09/03/17: Change of sacral ulcer dressing was performed by me with assitance from Nurse Lyman * 09/04/17: 09/03/17: Change of sacral ulcer dressing was performed by me with assistance from ALEXANDRA Unger * Per wound care note (09/07): sacral ulcer is stable per wound care nurse * 09/14/17: Sacral Ulcer is unstageable and area of blackness fills entire circumference. General Surgery consult placed to see if debridement is necessary. Continue Cavelon [place] followed by paulina thick coating of MediHoney followed by covering with OptiFoam. * 09/15/17: Surgery Team debrided Sacral Ulcer and Bone Scan will need to be followed up which was performed 09/17/17 * 09/18/17: With the help of Nurse Megan, applied Cavelon [place] followed by thick coating of MediHoney followed by covering with OptiFoam * 09/19/17: Dressing for Sacral Ulcer already changed before my exam. Explained to Nurse Megan that best application of MediHoney would be to cover the padding of the OptiFoam with it and then apply the OptiFoam to the ulcer. Status: Acute (16) Elevated LFTs Assessment and Plan: * 08/27: Yina * Discussed with cardiology-->changed amiodarone 200mg PO tid to amiodaron 200mg PO daily * D/C tylenol * Held Statin * patient is also on Rocephin to cover for pneumonia * Will not start antifungal * 08/29: starting to down trending since change in amiodarone dose; awaiting to restart statin * 08/30: continues to trend down. Amiodarone was discontinued * 09/01: AST, ALT, Alk Phos still elevated but stable * 09/02: AST, ALT, Alk Phos still elevated but stable * 09/03: LFTs stable * 09/04: LFTs stable Status: Acute (17). Hx Constipation * Monitor bowel movement * Multiple bowel movements on 09/13/17 and 09/14/17 that are well formed s/p Fleet Enema on 09/13/17 * 09/15/17: NO bowel movement * 09/16/17: Soft pasty bowel movement * 09/17/17: Soft pasty bowel movement * 09/18/17: NO bowel movement * 09/19/17: ordered one dose of Lactulose 20 gm via PEG as still no bowel movement (18). Hyponatremia * 09/19/17: at 127 monitor for now (19). Prophylactic measure Assessment and Plan: * Pepcid 20mg PO daily * Start Eliquis 2.5mg PO BID * s/p peg placement 08/25 * s/p trachesostomy 08/22 * s/p Permcath placement 08/22 removal Kurtis catheter * s/p right posterior chest tube 08/19-->removed 08/24 * s/p Right Arm PICC 08/26 * (Jovita Serrano): -->number provided to the nurse- ->consented for peg placement; discussed about LTAC 08/26 * Spoke with MARIAJOSE Figueroa regarding patient's hospitalization up until this point 08/2609/01/17: Dr. Cullen Barth spoke with the patient's [place] with the assistance of Nurse Beth on 3 tower (as multiple attempts of using [employer] indicated that all of the [place] translators were busy) and explained all of the patient's diagnosises. 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 Her ultimate wish is to take patient to [facility] where their children live. I explained to patient that I would not know how that would be coordinated but that the Social Workers/Government Operations Consultant at LTAC may be of assistance in this regard. I also informed her that I am not aware of any insurance company that would finance this request. She understands that the patient is awaiting insurance approval for LTAC. 09/01/17 and 09/02/17: Dr. Cullen Barth spoke with Mix Technician Demetria and we are still awaiting insurance authorization for LTAC placement. 09/05/17: Spoke with nehal psychotherapist social worker, wean trials sent to LTAC pending approval no word yet regarding approval. Ordered for repeat cultures given uptrend in white count. 09/06/17: pending repeat cultures in light of elevated procalcitonin; ID recommended to reculture. Note: patients PICC lined had clogged ports. Red port remains clogged in spite of cath rafaela. Blue port improved after cath rafaela. Possible may need to remove line to r/o infected line. Strong suspicion due to patient's pneumonia given he has thick secretions. 09/07/17: Infectious disease. pending repeat cultures in light of elevated procalcitonin; Note: patients PICC lined had clogged ports. Red port remains clogged in spite of cath rafaela. Blue port improved after cath rafaela. Hip xray negative for acute fracture. There are no noted falls. 09/08/17: Patient denied for LTAC; awaiting for other options from case management/social work. Resident Daniel spoke with Dr. Moo, patient be transferred under regular bed, when bed is available. Infectious disease on board; Patient started on IV Vancomycin in light of + blood culture. Pending chest xray. 09/09/17: Patient denied for LTAC; awaiting for other options from case management/social work with kamlesh verdin support. Patient started on IV Vancomycin MWF in light of + blood culture. Pending chest xray. F/U sputum with ID. f/u latest blood cultures. 09/13/17: Rapid response for low blood pressure and elevated WBC likely Septic Shock. Started on Levophed, added Meropenem to Vancomycin and 1 dose of Gentamycin given after speaking with ID. Ordered Obstruction Series as no bowel movement since 09/07/17. F/U Shock Panel. Discussed with ICU Resident to arrange for Change of Right Arm Midline line and Trach Collar. 09/14/17: Will await results of Blood Culture 09/13/17 to determine if the Right Arm Midline, Right Chest Perm Cath, and Trach Collar needs to be changed. Spoke with Mix Technician Demetria in ICU and patient information has been sent to [facility] (they accept patients on Trach) and she is awaiting to hear back from them before submitting approval request to insurance company. 09/15/17: Passy [place] Trach placed by Home School Teacher. Surgical Team for debridement of Sacral Ulcer. Spoke with patient's (IN DEMAND Denisa [id number]) and explained/updated her on patient condition and obtained consent for sacral ulcer debridement. 09/16/17: Still awaiting performance of Sacral Bone Scan 09/17/17: Bone Scan performed and awaiting results 09/18/17: Awaiting Bone Scan Report 09/19/17: Still awaiting Bone Scan Report. Spoke again with Mix Technician Demetria and NO word yet from [facility] or [place] (they do treat patients with Trachs). 09/20/17: Repeat Wound culture and urine culture sent. Dressing changed with medihoney and optifoam. No other changes at this time. Still waiting for approval for [facility] 09/21/17: No changes at this time. Will continue to change wound dressing Q3D and follow up with case management for for intermediate transfer. 09/22/17: Dressing changed today with medihoney. Healing appropriately. Talked to case management. Still no update from [facility] transfer. Bone scan negative for osteo. Repeat wound cultures continue to grow Enterococcus. Will follow up sensitivities 09/26/17: Dialysis today. Dressing changed with optifoam and medihoney (nickel thick). VRE/germania in wound. Talked to case management. No updates at this time 09/27/17: dressing changed today with optifoam and medihoney (Nickel thick). Case management says no new information from [facility]. Will update as new information becomes available. <Cullen Barth - Last Filed: 09/27/17 20:45> Objective - Vital Signs/Intake and Output Vital Signs (last 24 hours): Temp Pulse Resp BP Pulse Ox 97.7 F 101 H 20 138/67 98 09/27/17 15:30 09/27/17 15:30 09/27/17 15:30 09/27/17 20:15 09/27/17 15:30 Intake and Output: 09/27/17 09/28/17 18:59 06:59 Intake Total 500 Balance 500 - Medications Medications: Current Medications Acetylcysteine (Acetylcysteine 20%) 4 ml INH RQ6 [facility] Last Admin: 09/27/17 20:09 Dose: 4 ml Albuterol/Ipratropium (Duoneb 3 Mg/0.5 Mg (3 Ml) Ud) 3 ml INH RQ6 [facility] Last Admin: 09/27/17 20:09 Dose: 3 ml Apixaban (Eliquis) 2.5 mg PO BID [facility] Last Admin: 09/27/17 18:01 Dose: 2.5 mg Aspirin (Aspirin Chewable) 81 mg PO DAILY [facility] Last Admin: 09/27/17 10:07 Dose: 81 mg Calcium Acetate (Phoslo) 1,334 mg GT TID [facility] Last Admin: 09/27/17 18:01 Dose: 1,334 mg Famotidine (Pepcid) 20 mg PO DAILY [facility] Last Admin: 09/27/17 10:07 Dose: 20 mg Fluconazole (Diflucan) 200 mg PO DAILY [facility] Last Admin: 09/27/17 10:07 Dose: 200 mg Insulin Aspart (Novolog) 0 unit SC Q6 [facility] PRN Reason: Protocol Last Admin: 09/27/17 18:13 Dose: Not Given Rosuvastatin Calcium (Crestor) 10 mg PO [facility] Last Admin: 08/26/17 22:41 Dose: 10 mg Saccharomyces Boulardii (Florastor) 250 mg PO BID [facility] Last Admin: 09/27/17 18:01 Dose: 250 mg - Labs Labs: 09/27/17 14:48 09/27/17 14:48 PT 13.9 SECONDS (9.7-12.2) H 08/24/17 06:08 INR 1.2 08/24/17 06:08 APTT 55 SECONDS (21-34) H D 08/17/17 06:12 Attending/Attestation - Attestation I have personally seen and examined this patient.: Yes I have fully participated in the care of the patient.: Yes I have reviewed all pertinent clinical information, including history, physical exam and plan: Yes Notes (Text): 09/27/17 20:43 Patient was seen and examined with the resident. Assessment and Plan were thoroughly gone over with the resident. Patient had a normal soft bowel movement at the time that we changed his Sacral Ulcer Bandage. Also note: Bone Scan 09/17/17 was NEGATIVE for ostemyelitis Repeat Sacral Wound Culture 09/20/17 showed VRE: Tigecycline 50 mg IV Q12H Repeat Urine Culture 09/20/17 showed Yeast: Diflucan 200 mg PO 1x/day I spoke wit Wound Care Nurse Emeka Samuel 09/26/17 and Sacral Ulcer requires MediHoney with Optifoam dressing change daily. Right Heal Ulcer is purple. I spoke with Nurse Vee 09/27/17 and stressed that this patient must be turned- repositioned every 2 hours including his feet in the Prevalon Boots. I spoke with Mix Technician Tiffanie 09/26/17 and Insurance Company is negotiating with [facility]. Cullen Barth D.O.
[2017-09-27 15:06] LABS: ALB/GLOB RATIO 0.5 (1.0-2.1); BILIRUBIN,TOTAL 0.6 mg/dL (0.2-1.3); TOTAL PROTEIN 6.9 g/dL (6.3-8.3)
[2017-09-27 15:07] LABS: CALCIUM 9.3 mg/dl (8.6-10.4); MAGNESIUM 2.4 mg/dL (1.6-2.3); PHOSPHOROUS 5.2 mg/dL (2.5-4.5)
--- NOTE | 2017-09-27 15:07 | CP.PCM.PN ---
Subjective - Date & Time of Evaluation Date of Evaluation: 09/27/17 Time of Evaluation: 03:00 - Subjective Subjective: dictated Objective - Vital Signs/Intake and Output Vital Signs (last 24 hours): Temp Pulse Resp BP Pulse Ox 97.8 F 98 H 22 137/70 95 09/27/17 08:00 09/27/17 08:00 09/27/17 08:00 09/27/17 08:00 09/27/17 08:00 - Medications Medications: Current Medications Acetylcysteine (Acetylcysteine 20%) 4 ml INH RQ6 [facility] Last Admin: 09/27/17 13:13 Dose: 4 ml Albuterol/Ipratropium (Duoneb 3 Mg/0.5 Mg (3 Ml) Ud) 3 ml INH RQ6 [facility] Last Admin: 09/27/17 13:13 Dose: 3 ml Apixaban (Eliquis) 2.5 mg PO BID [facility] Last Admin: 09/27/17 10:07 Dose: 2.5 mg Aspirin (Aspirin Chewable) 81 mg PO DAILY [facility] Last Admin: 09/27/17 10:07 Dose: 81 mg Calcium Acetate (Phoslo) 1,334 mg GT TID [facility] Last Admin: 09/27/17 10:07 Dose: 1,334 mg Famotidine (Pepcid) 20 mg PO DAILY [facility] Last Admin: 09/27/17 10:07 Dose: 20 mg Fluconazole (Diflucan) 200 mg PO DAILY [facility] Last Admin: 09/27/17 10:07 Dose: 200 mg Insulin Aspart (Novolog) 0 unit SC Q6 [facility] PRN Reason: Protocol Last Admin: 09/27/17 12:11 Dose: 2 unit Rosuvastatin Calcium (Crestor) 10 mg PO HS [facility] Last Admin: 08/26/17 22:41 Dose: 10 mg Saccharomyces Boulardii (Florastor) 250 mg PO BID [facility] Last Admin: 09/27/17 10:07 Dose: 250 mg - Labs Labs: 09/27/17 14:48 09/27/17 14:48 PT 13.9 SECONDS (9.7-12.2) H 08/24/17 06:08 INR 1.2 08/24/17 06:08 APTT 55 SECONDS (21-34) H D 08/17/17 06:12
--- NOTE | 2017-09-27 21:37 | CP.PCM.PN ---
Subjective - Date & Time of Evaluation Date of Evaluation: 09/27/17 Time of Evaluation: 14:10 - Subjective Subjective: Patient seen and examined at bedside. Looks more comfortable and more aware. at bedside. ROS unattainable. Physical Examination - Constitutional Appears: Chronically Ill - Head Exam Head Exam: ATRAUMATIC, NORMAL INSPECTION, NORMOCEPHALIC - Eye Exam Eye Exam: EOMI Pupil Exam: NORMAL ACCOMODATION - ENT Exam ENT Exam: Mucous Membranes Moist - Neck Exam Additional comments: trach - Respiratory Exam Respiratory Exam: Clear to Ausculation Bilateral, NORMAL BREATHING PATTERN - Cardiovascular Exam Cardiovascular Exam: REGULAR RHYTHM - GI/Abdominal Exam GI & Abdominal Exam: Soft, Normal Bowel Sounds. absent: Distended, Tenderness - Extremities Exam Extremities Exam: absent: Joint Swelling, Tenderness - Back Exam Additional comments: 10x10 unstageable ulcer with healthy granulation tissue. No necrotic tissue. optifoam dressing with medihoney. Clear dry and intact - Neurological Exam Neurological Exam: Alert, Awake - Psychiatric Exam Psychiatric exam: Normal Affect, Normal Mood - Skin Skin Exam: Dry, Intact, Normal Color, Warm Objective - Vital Signs/Intake and Output Vital Signs (last 24 hours): Temp Pulse Resp BP Pulse Ox 97.7 F 101 H 20 138/67 98 09/27/17 15:30 09/27/17 15:30 09/27/17 15:30 09/27/17 20:15 09/27/17 15:30 Intake and Output: 09/27/17 09/28/17 18:59 06:59 Intake Total 500 Balance 500 - Medications Medications: Current Medications Acetylcysteine (Acetylcysteine 20%) 4 ml INH RQ6 [facility] Last Admin: 09/27/17 20:09 Dose: 4 ml Albuterol/Ipratropium (Duoneb 3 Mg/0.5 Mg (3 Ml) Ud) 3 ml INH RQ6 [facility] Last Admin: 09/27/17 20:09 Dose: 3 ml Apixaban (Eliquis) 2.5 mg PO BID [facility] Last Admin: 09/27/17 18:01 Dose: 2.5 mg Aspirin (Aspirin Chewable) 81 mg PO DAILY [facility] Last Admin: 09/27/17 10:07 Dose: 81 mg Calcium Acetate (Phoslo) 1,334 mg GT TID [facility] Last Admin: 09/27/17 18:01 Dose: 1,334 mg Famotidine (Pepcid) 20 mg PO DAILY [facility] Last Admin: 09/27/17 10:07 Dose: 20 mg Fluconazole (Diflucan) 200 mg PO DAILY [facility] Last Admin: 09/27/17 10:07 Dose: 200 mg Insulin Aspart (Novolog) 0 unit SC Q6 [facility] PRN Reason: Protocol Last Admin: 09/27/17 18:13 Dose: Not Given Rosuvastatin Calcium (Crestor) 10 mg PO HS [facility] Last Admin: 08/26/17 22:41 Dose: 10 mg Saccharomyces Boulardii (Florastor) 250 mg PO BID [facility] Last Admin: 09/27/17 18:01 Dose: 250 mg - Labs Labs: 09/27/17 14:48 09/27/17 14:48 PT 13.9 SECONDS (9.7-12.2) H 08/24/17 06:08 INR 1.2 08/24/17 06:08 APTT 55 SECONDS (21-34) H D 08/17/17 06:12 Assessment and Plan - Assessment and Plan (Free Text) Assessment: SIRS Hypotensive event with tachycardia yesterday Considerations for sacral wound. Concepcion cultures- Wound cultures grew out Vancomycin Resistant Enteroccoci, Urine cuture- yeast species Has undergone wound debridement per Surgery Atrial Fibrillation Intermittent Rate controlled. On Metoprolol 50 mg PO BID, Eliquis 2.5 mg PO BID CAD, chest pain -No current plans for cardiac cath (acute respiratory failure and elevated Cr) , history of abnormal stress test -Elevated Troponin likely due to chest compressions during cardiac arrest 08/10 -No acute ST changes on EKG -Continue ASA, Crestor, Metoprolol. -Echocardiogram from 08/08/17 showed left ventricle systolic function is severely impaired. EF: 25-30%; global hypokinesis of LV mild AR. MR is moderate. Moderate-severe pulmonary hypertension Systolic CHF exacerbation -CXR 09/09: Diminished bilateral basilar airspace disease; stable cardiomegaly -BNP 32952 on 08/06/17 -Continue ASA, Crestor, Metoprolol -Echocardiogram from 08/08/17 showed left ventricle systolic function is severely impaired. EF: 25-30%; global hypokinesis of LV mild AR. MR is moderate. Moderate-severe pulmonary hypertesnion Dobutamine discontinued in light of atrial flutter-type episodes Diabetes Mellitus ISS Continue to monitor ESRD on HD Currently on HD On Procrit and Phoslo Nephro on the case Prophylaxis Pepcid 20 mg PO daily Eliquis 2.5 mg PO BID (Renal precautions) Disposition Awaiting Transfer to LTAC
--- NOTE | 2017-09-27 22:16 | CP.PCM.PN ---
Subjective - Date & Time of Evaluation Date of Evaluation: 09/27/17 Time of Evaluation: 22:14 - Subjective Subjective: patient seen and examined no events clinically unchanged unable to obtain ros due to ams Objective - Vital Signs/Intake and Output Vital Signs (last 24 hours): Temp Pulse Resp BP Pulse Ox 97.7 F 101 H 20 138/67 98 09/27/17 15:30 09/27/17 15:30 09/27/17 15:30 09/27/17 20:15 09/27/17 15:30 Intake and Output: 09/27/17 09/28/17 18:59 06:59 Intake Total 500 Balance 500 - Medications Medications: Current Medications Acetylcysteine (Acetylcysteine 20%) 4 ml INH RQ6 [facility] Last Admin: 09/27/17 20:09 Dose: 4 ml Albuterol/Ipratropium (Duoneb 3 Mg/0.5 Mg (3 Ml) Ud) 3 ml INH RQ6 [facility] Last Admin: 09/27/17 20:09 Dose: 3 ml Apixaban (Eliquis) 2.5 mg PO BID [facility] Last Admin: 09/27/17 18:01 Dose: 2.5 mg Aspirin (Aspirin Chewable) 81 mg PO DAILY [facility] Last Admin: 09/27/17 10:07 Dose: 81 mg Calcium Acetate (Phoslo) 1,334 mg GT TID [facility] Last Admin: 09/27/17 18:01 Dose: 1,334 mg Famotidine (Pepcid) 20 mg PO DAILY [facility] Last Admin: 09/27/17 10:07 Dose: 20 mg Fluconazole (Diflucan) 100 mg PO DAILY [facility] Insulin Aspart (Novolog) 0 unit SC Q6 [facility] PRN Reason: Protocol Last Admin: 09/27/17 18:13 Dose: Not Given Rosuvastatin Calcium (Crestor) 10 mg PO HS [facility] Last Admin: 08/26/17 22:41 Dose: 10 mg Saccharomyces Boulardii (Florastor) 250 mg PO BID [facility] Last Admin: 09/27/17 18:01 Dose: 250 mg - Labs Labs: 09/27/17 14:48 09/27/17 14:48 PT 13.9 SECONDS (9.7-12.2) H 08/24/17 06:08 INR 1.2 08/24/17 06:08 APTT 55 SECONDS (21-34) H D 08/17/17 06:12 - Constitutional Appears: No Acute Distress, Chronically Ill - Head Exam Head Exam: NORMAL INSPECTION - Eye Exam Eye Exam: Normal appearance - ENT Exam ENT Exam: Mucous Membranes Dry - Neck Exam Additional comments: tracheostomy - Respiratory Exam Respiratory Exam: Decreased Breath Sounds (mechanical vent sounds) - Cardiovascular Exam Cardiovascular Exam: REGULAR RHYTHM - GI/Abdominal Exam GI & Abdominal Exam: Distended, Soft, Normal Bowel Sounds - Neurological Exam Neurological Exam: Altered Assessment and Plan (1) Acute on chronic renal failure Status: Resolved (2) CHF (congestive heart failure) Status: Acute (3) History of DVT (deep vein thrombosis) Status: Acute (4) CAD (coronary artery disease) Status: Chronic (5) CKD (chronic kidney disease) Status: Chronic - Assessment and Plan (Free Text) Assessment: maintain hd mwf bp acceptable
[2017-09-28] MEDS: (Novolog) Insulin Aspart, Recombinant 100 u/ml 10 ml vial SC SCH ×4 (00:45→17:33)
[2017-09-28] MEDS: Acetylcysteine 20% Inhal Soln (4ml) INH SCH ×4 (01:04→20:23)
[2017-09-28] MEDS: Albuterol-Ipratrop 3 mg / 0.5 (3 ml) UD INH SCH ×4 (01:04→20:22)
--- NOTE | 2017-09-28 03:08 | PN ---
DATE: SUBJECTIVE: This patient is afebrile. He was very lethargic. The says he sleeps all the time. He still has a trach. PHYSICAL EXAMINATION: NECK: Supple. LUNGS: Clear. HEART: S1 and S2 is regular. Mildly tachycardic. ABDOMEN: Soft and nontender. He has a PEG tube. EXTREMITIES: He has foot protectors. He does have a sacral wound, I was unable to evaluate it today. LABORATORY DATA: Showed white count is 11.6, hemoglobin is 8.8, hematocrit is 28.6, and platelet count is 416. Sodium is 134, potassium is 3.8, creatinine is now 2.8, and BUN is 58. He was on renal dialysis before. ASSESSMENT: So, at this time, he is only on Diflucan, as his urine showed yeast. He is status post cardiopulmonary arrest, status post respiratory failure, and renal failure. He had Streptococcal pneumoniae in the urine, antigen positive, probably he had a pneumococcal pneumonia and now has urinary tract infection with yeast. PLAN: The plan is to continue Diflucan at this time. He is getting Diflucan 200 mg p.o. daily that is kind of high for the creatinine of , I will decrease it to 100 a day. We will follow. Allan Lawrence MD
[2017-09-28 07:21] LABS: BASO # 0.1 K/uL (0.0-0.2); BASO % 0.6 % (0.0-2.0); EOS # 0.4 K/uL (0.0-0.7); HEMATOCRIT 28.9 % (35.0-51.0); LYMPH # 2.4 K/uL (1.0-4.3); LYMPH % 21.7 % (20.0-40.0); MEAN CELL VOLUME 79.6 fL (80.0-94.0); MEAN CORPUSCULAR HEMOGLOBIN 24.1 pg (27.0-31.0); MEAN CORPUSCULAR HGB CONC 30.3 g/dL (33.0-37.0); MEAN PLATELET VOLUME 7.7 fL (7.2-11.7); MONO # 0.7 K/uL (0.0-0.8); MONO % 6.4 % (0.0-10.0); NRBC % 0.1 % (0.0-2.0); RED CELL DISTRIBUTION WIDTH 24.9 % (11.5-14.5); WHITE BLOOD COUNT 11.1 K/uL (4.8-10.8)
--- NOTE | 2017-09-28 07:31 | CP.PCM.PN ---
<Sina White - Last Filed: 09/28/17 18:16> Subjective - Date & Time of Evaluation Date of Evaluation: 09/28/17 Time of Evaluation: 07:31 - Subjective Subjective: Medicine Progress Note for Dr. Barth HPI: Patient seen and examined at bedside. Alert and awake. Looks comfortable. ROS is unavailable. Objective - Vital Signs/Intake and Output Vital Signs (last 24 hours): Temp Pulse Resp BP Pulse Ox 98 F 106 H 20 123/63 98 09/27/17 23:19 09/27/17 23:19 09/27/17 23:19 09/27/17 23:19 09/27/17 23:19 - Medications Medications: Current Medications Acetylcysteine (Acetylcysteine 20%) 4 ml INH RQ6 [facility] Last Admin: 09/28/17 01:04 Dose: 4 ml Albuterol/Ipratropium (Duoneb 3 Mg/0.5 Mg (3 Ml) Ud) 3 ml INH RQ6 [facility] Last Admin: 09/28/17 01:04 Dose: 3 ml Apixaban (Eliquis) 2.5 mg PO BID [facility] Last Admin: 09/27/17 18:01 Dose: 2.5 mg Aspirin (Aspirin Chewable) 81 mg PO DAILY [facility] Last Admin: 09/27/17 10:07 Dose: 81 mg Calcium Acetate (Phoslo) 1,334 mg GT TID [facility] Last Admin: 09/27/17 18:01 Dose: 1,334 mg Famotidine (Pepcid) 20 mg PO DAILY [facility] Last Admin: 09/27/17 10:07 Dose: 20 mg Fluconazole (Diflucan) 100 mg PO DAILY [facility] Insulin Aspart (Novolog) 0 unit SC Q6 [facility] PRN Reason: Protocol Last Admin: 09/28/17 06:05 Dose: 2 unit Rosuvastatin Calcium (Crestor) 10 mg PO HS [facility] Last Admin: 08/26/17 22:41 Dose: 10 mg Saccharomyces Boulardii (Florastor) 250 mg PO BID [facility] Last Admin: 09/27/17 18:01 Dose: 250 mg - Labs Labs: 09/28/17 07:13 09/27/17 14:48 PT 13.9 SECONDS (9.7-12.2) H 08/24/17 06:08 INR 1.2 08/24/17 06:08 APTT 55 SECONDS (21-34) H D 08/17/17 06:12 - Additional Findings Additional findings: - Constitutional Appears: Chronically Ill - Head Exam Head Exam: ATRAUMATIC, NORMAL INSPECTION, NORMOCEPHALIC - Eye Exam Eye Exam: EOMI Pupil Exam: NORMAL ACCOMODATION - ENT Exam ENT Exam: Mucous Membranes Moist - Neck Exam Additional comments: trach - Respiratory Exam Respiratory Exam: Clear to Ausculation Bilateral, NORMAL BREATHING PATTERN - Cardiovascular Exam Cardiovascular Exam: REGULAR RHYTHM - GI/Abdominal Exam GI & Abdominal Exam: Soft, Normal Bowel Sounds. absent: Distended, Tenderness - Extremities Exam Extremities Exam: absent: Joint Swelling, Tenderness - Back Exam Additional comments: 10x10 unstageable ulcer with healthy granulation tissue. No necrotic tissue. optifoam dressing with medihoney. Clear dry and intact - Neurological Exam Neurological Exam: Alert, Awake - Psychiatric Exam Psychiatric exam: Normal Affect, Normal Mood - Skin Skin Exam: Dry, Intact, Normal Color, Warm Assessment and Plan - Assessment and Plan (Free Text) Assessment: (1) Acute Respiratory Failure ARDS Cardiac Arrest Pulmonary Edema Nonstemi Assessment and Plan: * Code Blue on 08/10: asystole, cardiopulmonary resuscitative measures initiated , requiring 3 epis, bicarbonate, ROSC achieved and intubated and brought to the ICU for further management; Patient in the ICU from 08/10 until present. * Pulmonary: Dr Mena (Dr. Jeffers covering until 09/04/17)-->help appreciated * Cardiology: Dr. Cortés on board-->help appreciated * GI (Dr. Wills) on board-->help appreciated * S/P Tracheostomy 08/22 * S/P Peg tube placement 08/25 * s/p insertion of right posterior chest tube 08/19-->removed 08/24/17 * There was consideration for possible thoracentesis of left side pleural effusion, evaluated by IR, there is no fluid to drain per Dr. Gross * Chest xray (08/26): right arm PICC is seen with the tip of distal subclavian vein. PICC may be used * Per cardiology, * Restart Aspirin 81mg PO daily * Patient does not need Plavix at this time * Recommend for Eliquis 2.5mg PO BID for atrial flutter * 08/27: patient is pending LTAC, he went eventually need cardiac catheterization when he has stabilized. Held statin secondary to elevated LFTs. Discussed with Dr. Cortés, lowered Amiodarone 200mg PO daily * 08/28: patient is pending LTAC, he went eventually need cardiac catheterization when he has stabilized. Liver function tests improving * 08/29: Fitness Technician Nehal has sent request to insurance for authorization for LTAC-->pending * 09/06: pending social work/case management approval for LTAC * 09/07: pending social work/case management approval for LTAC * 09/08: Unable to get approval for LTAC; pending other options * 09/09: Transferred from step-down ICU to the floors * 09/13: Trasnferred back to ICU S/P Rapid Response for low blood pressure * 09/14: Currently on Acetylcysteine 20 % Neb Q6H and Duoneb Q6H * 09/15: Passy [place] Trach placed by Dramatic Director (2) Abnormal Stress Test History of AICD History of Coronary Artery Disease Assessment and Plan: * Cardiology (Dr. Cortés) on board-->help appreciated * TSH: 1.16; T4: 1.53 * Echocardiogram (08/08/17): left ventricle systolic function is severely impaired. EF: 25-30%; global hypokinesis of left ventricle mild aortic regurgitation. Mitral regurgitation is moderate. Moderate-severe pulmonary hypertension * Plan was for cardiac catheterization; delayed due to acute renal failure; Attempted gentle hydration and mucomyst on 08/09 to optimize prior to cath * On 08/10, patient was in asystole, ACLS protocol, ROSC achieved, intubated and transfered to the ICU. Patient in acute pulmonary edema. * Patient hospitalized in the ICU since 08/10/17 to present. * Medications: * Aspirin 81mg PO daily * Plavix d/c by cardiology * Lopressor 50mg PO bid * d/c Crestor 10mg POqHS secondary to rise in LFTS 08/27--->monitor LFTs daily * ARB d/c secondary to acute renal failure * 08/27: patient is pending LTAC, he went eventually need cardiac catheterization when he has stabilized. Held statin secondary to elevated LFTs. Discussed with Dr. Cortés, lowered Amiodarone 200mg PO daily * 08/28: He will eventually need cardiac catheterization when he has stabilized. Liver function tests improving. Statin is on hold (3) Atrial flutter Assessment and Plan: * Cardiology (Dr. Cortés) on board-->help appreciated * Refractory to Lopressor/Cardizem IVP * Eliquis 2.5mg PO bid * Amiodarone bolus-->Amiodarine drip on 08/24-->converted to Amiodarone 200mg PO TID on 08/26 and this was decreased to 200 mg 1x/day due to increased LFTs * 08/27: Discussed with Dr. Cortés, will lower Amiodarone 200mg PO daily and monitor LFTs. Statin held and tylenol d/c * 08/29: patient is pending LTAC, he will eventually need cardiac catheterization when he has stabilized. Liver function tests improving. Statin is on hold due to the elevated LFTs * 08/30: Cardiology discontinued the Amiodarone * 09/07: Held eliquis; will need to resume * 09/09: Eliquis resumed, off Amiodarone Status: Acute (4) Acute on Chronic Systolic CHF exacerbation Assessment and Plan: * Cardiology (Dr. Cortés) on board-->help appreciated * Transferred to the ICU on 08/10 following cardiac arrest and intubation. * Echocardiogram (08/08/17): left ventricular systolic function is severely impaired. EF: 25-30%; global hypokinesis of left ventricle mild aortic regurgitation. Mitral regurgitation is moderate. Moderate-severe pulmonary hypertension * Medications: * Aspirin 81mg PO daily * Plavix d/c by cardiology * Lopressor 50mg PO bid * d/c Crestor 10mg POqHS on 08/27 secondary to rise in LFTs * ARB d/c secondary to acute renal failure Status: Acute (5) Leukocytosis Assessment and Plan: * Patient's white count downtrending * Pleural Fluid 08/19/17 did not show any growth * Blood cultures (08/26): no growth X5 days * UA and urine culture (08/27): Urine Culture showed Yeast Species. * Patient has elevated LFTs-->did not start anti-fungal in light of LFTs New: * 09/05/17 Blood: gram positive cocci-->pending speciation * 09/05/17 Blood: no growth after 4 days * 09/07/17 Legionella Culture: negative * 09/07/17 Mycobacteria: negative * 09/07/17 Sputum: Enterocloace Bacter; yeast * 09/07/17 Blood: negative X 48 hours * 09/07/17 Blood: negative X 48 hours * 09/06: stool culture pending; has not had diarrhea or bowel movement * 09/07: Dr. Zimmer (covering Dr. Lawrence) to see the patient given elevated procalcitonin * Blood Culture 09/13/17 is negative to date and Urine Culture 09/13/17 showed Yeast Species * 09/14: Could this be secondary to the Septic Shock? Secondary to Osteomyelitis of the Sacrum? 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) and Meropenem 500 mg IV Q8H (09/13/17 through 09/16/17), Diflucan 200 mg PO 1x/day (09/13/17), Bactrim 10 mL PO Q12H (09/12/17 through 09/16/17), Tigecycline 50 mg IV Q12H (09/16/17 started because of VRE on Sacrum Wound Culture 09/14/17) * ESR 09/14/17 elevated at 89 * Bone Scan performed 09/17/17 to check for Osteomyelitis at the Sacrum: results are pending * Meropenem 500 mg IV Q12H (09/13/17 through 09/16/17: which will cover the Enterbacter in the Sputum 09/07/17 and the possibility of Sacral Osteomyelitis) * Antibiotics as of 09/17/17:Tigecycline (09/16/17: which will cover the VRE in Sacral Wound Culture 09/14/17 and the possibility of Sacral Osteomyelitis) and Diflucan 200 mg PO 1x/day (09/13/17: which will cover with Yeast in the Sputum, Urine, and Sacral Wound Culture) Status: Acute (6) Pneumonia Assessment and Plan: * Pulmonary (Dr. Mena) on board-->help appreciated; Dr. Jeffers covering while Dr. Mena away * Infectious Disease (Dr. Lawrence)-->help appreciated * Chest xray (08/26): right arm PICC is seen with the tip of distal subclavian vein. PICC may be used * Rapid A strep, Influenza A and B studies, Urine Legionella, Mycoplasma studies = Negative * Florastor 250mg PO bid * 08/07/17: +Strep Pneumoniae in the urine * Meropenem 500mg IV Q 8 hours (08/14/17 through 08/18/17) and Zosyn 2.25 mg IV Q6H (08/13/17 through 08/18/17) * Cefepime 1 gm IV Q24H: started on 08/19/17 and was discontinued by ID Dr. Lawrence on 08/30/17: monitor vitals and labs * s/p right posterior chest tube 08/19-08/24 * Sputum Culture 08/19/17 shows No growth * Pleural fluid 08/19/17: No growth * 09/07/17 Sputum: Enterocloace Bacter and Yeast Species: See Antibiotic treatment in previous Assessment and Plan * Sputum 09/10/17 shows NO AFB Status: Acute (7) HTN (hypertension) Assessment and Plan: * Lopressor 50mg PO bid * Lisinopril 5mg PO daily Status: Chronic (8) CKD (chronic kidney disease) on Dialysis Assessment and Plan: * Dr. Miranda (nephrology) consulted on the case * Hx of CKD-->Started on dialysis 08/15/17 * Kurtis catheter placed and removed 08/22 * s/p Right Chest Permcath 08/22 * Patient is on dialysis M-W-F; oliguric * Phoslo 1334mg GT TID * Epoetin 10,000 unit IV MWF Status: Acute (9) Diabetes mellitus Assessment and Plan: * Accuchecks Q6H * HgbA1c 8.4 * Started peg feedings on 08/26/17 * Nepro-->50 ml/hour but this was held 09/13/17 due suspicion of Bowel Obstruction as NO bowel Movement since 09/07/17. This was restarted on after NO obstruction was observed on Obstruction Series 09/13/17 and after multiple bowel movement s/p Fleet Enema 09/13/17 (10) HLD (hyperlipidemia) Assessment and Plan: * 08/27: held Crestor 10 mg PO HS secondary to rise in LFTs * 08/29: Liver function tests improving; waiting to restart statin Status: Chronic (11) Anemia Assessment and Plan: * Heme-oncology (Dr. Giles bender) on board-->help appreciated * Likely iron deficiency anemia based on prior admissions * Ferritin 27.4, Iron 22, TIBC 322, % Saturation 7 * Ferric Sodium Gluconate 125mg IVPB daily (active 08/08-08/16) * Procrit 10,000 units M-W- * Monitor Hgb/Hct: stable Status: Chronic (12) History of DVT (deep vein thrombosis) Assessment and Plan: * Patient was previously on Eliquis for a prior history of DVT. * Repeat dopplers 08/09/17 are negative for DVT * Off Heparin Drip 08/17/17 * Started Eliquis 2.5mg PO BID for atrial flutter and history of DVT Status: Chronic (13) UTI Assessment and Plan: * Infectious disease (Dr. Lawrence) on board-->help appreciated * Exchange jaquez out and repeat urine cultures * Urine Culture 08/12/17 showed Gram Negative Rods: NO identification and NO sensitivities were performed * Meropenem 500mg IV Q 12hours (active since 08/14/17 through 08/18/17) to cover for UTI per ID * Repeat Urine Culture 08/18/17 shows NO growth * 08/25: reculture in light of leukocytosis * 08/27: pending urine studies * 08/30: Urine Culture 08/27/17 showed Yeast Species but no antifungal at that time secondary to recent history of Elevated LFTs * Urine Culture 09/13/17 showed Yeast Species: he is on Diflucan Status: Chronic (14) Confusion; Alzheimer's Dementia Assessment and Plan: * Per daughter, patient has been getting bouts of confusion over the past year but appears at baseline. Patient has not seen formal neurology as outpatient per daughter. Per , prior to event, noted Alzheimers' disease dx one year ago * CT head w/o contrast (08/10/17):acute os subacute lacune infarct is not excluded in the left basal ganglia inferiorly with definitive chronic lacune identified in the right basal ganglia superiorly. No acute or subacute lobar brain infarction is appreciable by standard CT criteria. Mild age-related neuro degenerative changes are identifed. No acute intracranial hemorrhage or mass is identified throughout * 08/26: Off Sedation-->patient moves all extremities randomly but does not follow directions * 08/27: off sedation-->patient is very calm, smiles at his * 08/28: off sedation-->patient is very calm Status: Chronic (15) Unstageable Sacral Ulcer, Left Ear Auricle Ulcer, Right Heal Ulcer Assessment and Plan: * Wound care on board * WOUND CARE NOTE (08/26)-->Pt with a sacral unstageable being treated with medihoney. No changes to dimensions at this time. Also, pt favoring Left side of head and has developed a 1x1 serous filled blister on his left ear. Primary nurse placed duoderm on the ear. Wound care nurse left duoderm in place , and recommends leaving it on until it falls off on its own. Pt has been NPO for several days, new peg inserted yesterday. Will be starting glucerna tube feedings later today. Albumin 3.3 * Turn q 2 hours * medihoney on unstageable ulcer * duoderm on left ear aurical ulcer: this is healed as of 09/15/17 * Prevalon Boots for Right Heal Blister 09/13/17 * 09/02/17: examined with Wound Care Nurse Emeka Samuel and periphery of the Sacral Wound is pink with some bleeding however center is still black and therefore still unstageable. Continue spray with Cavelon followed by thick coating with MediHoney followed by covering with OptiFoam once a day. * 09/03/17: Change of sacral ulcer dressing was performed by me with assitance from Nurse Lyman * 09/04/17: 09/03/17: Change of sacral ulcer dressing was performed by me with assistance from ALEXANDRA Unger * Per wound care note (09/07): sacral ulcer is stable per wound care nurse * 09/14/17: Sacral Ulcer is unstageable and area of blackness fills entire circumference. General Surgery consult placed to see if debridement is necessary. Continue Cavelon Semora followed by paulina thick coating of MediHoney followed by covering with OptiFoam. * 09/15/17: Surgery Team debrided Sacral Ulcer and Bone Scan will need to be followed up which was performed 09/17/17 * 09/18/17: With the help of Nurse Guzman, applied Cavelon Semora followed by thick coating of MediHoney followed by covering with OptiFoam * 09/19/17: Dressing for Sacral Ulcer already changed before my exam. Explained to Nurse Megan that best application of MediHoney would be to cover the padding of the OptiFoam with it and then apply the OptiFoam to the ulcer. Status: Acute (16) Elevated LFTs Assessment and Plan: * 08/27: Yina * Discussed with cardiology-->changed amiodarone 200mg PO tid to amiodaron 200mg PO daily * D/C tylenol * Held Statin * patient is also on Rocephin to cover for pneumonia * Will not start antifungal * 08/29: starting to down trending since change in amiodarone dose; awaiting to restart statin * 08/30: continues to trend down. Amiodarone was discontinued * 09/01: AST, ALT, Alk Phos still elevated but stable * 09/02: AST, ALT, Alk Phos still elevated but stable * 09/03: LFTs stable * 09/04: LFTs stable Status: Acute (17). Hx Constipation * Monitor bowel movement * Multiple bowel movements on 09/13/17 and 09/14/17 that are well formed s/p Fleet Enema on 09/13/17 * 09/15/17: NO bowel movement * 09/16/17: Soft pasty bowel movement * 09/17/17: Soft pasty bowel movement * 09/18/17: NO bowel movement * 09/19/17: ordered one dose of Lactulose 20 gm via PEG as still no bowel movement (18). Hyponatremia * 09/19/17: at 127 monitor for now (19). Prophylactic measure Assessment and Plan: * Pepcid 20mg PO daily * Start Eliquis 2.5mg PO BID * s/p peg placement 08/25 * s/p trachesostomy 08/22 * s/p Permcath placement 08/22 removal Kurtis catheter * s/p right posterior chest tube 08/19-->removed 08/24 * s/p Right Arm PICC 08/26 * (Jovita Serrano): -->number provided to the nurse- ->consented for peg placement; discussed about LTAC 08/26 * Spoke with Dr. Pickard, PMD regarding patient's hospitalization up until this point 08/2609/01/17: Dr. Cullen Barth spoke with the patient's [place] with the assistance of Nurse Beth on 3 tower (as multiple attempts of using [employer] indicated that all of the Estonian translators were busy) and explained all of the patient's diagnosises. 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 Her ultimate wish is to take patient to [facility] where their children live. I explained to patient that I would not know how that would be coordinated but that the Social Workers/Granulator Operator at LTAC may be of assistance in this regard. I also informed her that I am not aware of any insurance company that would finance this request. She understands that the patient is awaiting insurance approval for LTAC. 09/01/17 and 09/02/17: Dr. Cullen Barth spoke with Edge Baster Demetria and we are still awaiting insurance authorization for LTAC placement. 09/05/17: Spoke with nehal, social insurance adviser, wean trials sent to LTAC pending approval no word yet regarding approval. Ordered for repeat cultures given uptrend in white count. 09/06/17: pending repeat cultures in light of elevated procalcitonin; ID recommended to reculture. Note: patients PICC lined had clogged ports. Red port remains clogged in spite of cath rafaela. Blue port improved after cath rafaela. Possible may need to remove line to r/o infected line. Strong suspicion due to patient's pneumonia given he has thick secretions. 09/07/17: Infectious disease. pending repeat cultures in light of elevated procalcitonin; Note: patients PICC lined had clogged ports. Red port remains clogged in spite of cath rafaela. Blue port improved after cath rafaela. Hip xray negative for acute fracture. There are no noted falls. 09/08/17: Patient denied for LTAC; awaiting for other options from case management/social work. Resident Daniel spoke with Dr. Cortés, patient be transferred under regular bed, when bed is available. Infectious disease on board; Patient started on IV Vancomycin in light of + blood culture. Pending chest xray. 09/09/17: Patient denied for LTAC; awaiting for other options from case management/social work with kamlesh verdin support. Patient started on IV Vancomycin MWF in light of + blood culture. Pending chest xray. F/U sputum with ID. f/u latest blood cultures. 09/13/17: Rapid response for low blood pressure and elevated WBC likely Septic Shock. Started on Levophed, added Meropenem to Vancomycin and 1 dose of Gentamycin given after speaking with ID. Ordered Obstruction Series as no bowel movement since 09/07/17. F/U Shock Panel. Discussed with ICU Resident to arrange for Change of Right Arm Midline line and Trach Collar. 09/14/17: Will await results of Blood Culture 09/13/17 to determine if the Right Arm Midline, Right Chest Perm Cath, and Trach Collar needs to be changed. Spoke with Edge Baster Demetria in ICU and patient information has been sent to [facility] (they accept patients on Trach) and she is awaiting to hear back from them before submitting approval request to insurance [employer]. 09/15/17: Passy Flex Trach placed by Dramatic Director. Surgical Team for debridement of Sacral Ulcer. Spoke with patient's ([place] Den[place] [id number]) and explained/updated her on patient condition and obtained consent for sacral ulcer debridement. 09/16/17: Still awaiting performance of Sacral Bone Scan 09/17/17: Bone Scan performed and awaiting results 09/18/17: Awaiting Bone Scan Report 09/19/17: Still awaiting Bone Scan Report. Spoke again with Edge Baster Demetria and [facility] with [facility]). 09/20/17: Repeat Wound culture and urine culture sent. Dressing changed with medihoney and optifoam. No other changes at this time. Still waiting for approval for [facility] 09/21/17: No changes at this time. Will continue to change wound dressing Q3D and follow up with case management for for longterm transfer. 09/22/17: Dressing changed today with medihoney. Healing appropriately. Talked to case management. Still no update from correction transfer. Bone scan negative for osteo. Repeat wound cultures continue to grow Enterococcus. Will follow up sensitivities 09/26/17: Dialysis today. Dressing changed with optifoam and medihoney (nickel thick). VRE/germania in wound. Talked to case management. No updates at this time 09/27/17: dressing changed today with optifoam and medihoney (Nickel thick). Case management says no new information from [facility]. Will update as new information becomes available. 09/28/17: dressing changed today with optifoam and medihoney (Nickel thick). Case management says no new information from [facility]. Will update as new information becomes available. 3x3cm unstageable ulcer on R. heel present. Will talk to surgery for possible bedside debridment. <Cullen Barth - Last Filed: 09/28/17 20:39> Objective - Vital Signs/Intake and Output Vital Signs (last 24 hours): Temp Pulse Resp BP Pulse Ox 98.3 F 109 H 20 129/64 96 09/28/17 15:17 09/28/17 19:24 09/28/17 15:17 09/28/17 15:17 09/28/17 15:17 Intake and Output: 09/28/17 09/29/17 18:59 06:59 Intake Total 500 Balance 500 - Medications Medications: Current Medications Acetylcysteine (Acetylcysteine 20%) 4 ml INH RQ6 [facility] Last Admin: 09/28/17 20:23 Dose: 4 ml Albuterol/Ipratropium (Duoneb 3 Mg/0.5 Mg (3 Ml) Ud) 3 ml INH RQ6 [facility] Last Admin: 09/28/17 20:22 Dose: 3 ml Apixaban (Eliquis) 2.5 mg PO BID [facility] Last Admin: 09/28/17 17:33 Dose: 2.5 mg Aspirin (Aspirin Chewable) 81 mg PO DAILY [facility] Last Admin: 09/28/17 13:35 Dose: 81 mg Calcium Acetate (Phoslo) 1,334 mg GT TID [facility] Last Admin: 09/28/17 17:33 Dose: 1,334 mg Famotidine (Pepcid) 20 mg PO DAILY [facility] Last Admin: 09/28/17 13:35 Dose: 20 mg Fluconazole (Diflucan) 100 mg PO DAILY [facility] Last Admin: 09/28/17 13:35 Dose: 100 mg Heparin Sodium (Porcine) (Heparin) 3,700 units IVP MWF [facility] Last Admin: 09/28/17 12:47 Dose: 3,700 units Insulin Aspart (Novolog) 0 unit SC Q6 [facility] PRN Reason: Protocol Last Admin: 09/28/17 17:33 Dose: 1 unit Rosuvastatin Calcium (Crestor) 10 mg PO HS [facility] Last Admin: 08/26/17 22:41 Dose: 10 mg Saccharomyces Boulardii (Florastor) 250 mg PO BID [facility] Last Admin: 09/28/17 17:33 Dose: 250 mg - Labs Labs: 09/28/17 07:13 09/28/17 07:13 PT 13.9 SECONDS (9.7-12.2) H 08/24/17 06:08 INR 1.2 08/24/17 06:08 APTT 55 SECONDS (21-34) H D 08/17/17 06:12 Attending/Attestation - Attestation I have personally seen and examined this patient.: Yes I have fully participated in the care of the patient.: Yes I have reviewed all pertinent clinical information, including history, physical exam and plan: Yes Notes (Text): 09/28/17 20:38 Patient was seen and examined with the resident. Assessment and Plan were thoroughly gone over with the resident. 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 Cullen Barth D.O.
[2017-09-28 07:36] LABS: POTASSIUM 3.5 mmol/L (3.6-5.2)
[2017-09-28 07:38] LABS: ALB/GLOB RATIO 0.7 (1.0-2.1); BILIRUBIN,TOTAL 0.9 mg/dL (0.2-1.3); PHOSPHOROUS 4.5 mg/dL (2.5-4.5); TOTAL PROTEIN 5.9 g/dL (6.3-8.3)
[2017-09-28 07:39] LABS: CALCIUM 9.7 mg/dl (8.6-10.4); MAGNESIUM 2.3 mg/dL (1.6-2.3)
[2017-09-28] MEDS: Saccharomyces Boulardi 250 mg Cap PO SCH ×2 (10:00→17:33)
--- NOTE | 2017-09-28 14:03 | CP.PCM.PN ---
Subjective - Date & Time of Evaluation Date of Evaluation: 09/28/17 Time of Evaluation: 14:02 - Subjective Subjective: Stable dialysis now-tolerated UF well BP low- unchanged Feels same- on trach collar No new complaints Objective - Vital Signs/Intake and Output Vital Signs (last 24 hours): Temp Pulse Resp BP Pulse Ox 98 F 94 H 20 96/73 L 99 09/28/17 13:00 09/28/17 13:00 09/28/17 13:00 09/28/17 13:00 09/28/17 13:00 - Medications Medications: Current Medications Acetylcysteine (Acetylcysteine 20%) 4 ml INH RQ6 [facility] Last Admin: 09/28/17 13:13 Dose: Not Given Albuterol/Ipratropium (Duoneb 3 Mg/0.5 Mg (3 Ml) Ud) 3 ml INH RQ6 [facility] Last Admin: 09/28/17 13:13 Dose: Not Given Apixaban (Eliquis) 2.5 mg PO BID [facility] Last Admin: 09/28/17 10:00 Dose: Not Given Aspirin (Aspirin Chewable) 81 mg PO DAILY [facility] Last Admin: 09/28/17 13:35 Dose: 81 mg Calcium Acetate (Phoslo) 1,334 mg GT TID [facility] Last Admin: 09/28/17 13:35 Dose: 1,334 mg Famotidine (Pepcid) 20 mg PO DAILY [facility] Last Admin: 09/28/17 13:35 Dose: 20 mg Fluconazole (Diflucan) 100 mg PO DAILY [facility] Last Admin: 09/28/17 13:35 Dose: 100 mg Heparin Sodium (Porcine) (Heparin) 3,700 units IVP MWF [facility] Last Admin: 09/28/17 12:47 Dose: 3,700 units Insulin Aspart (Novolog) 0 unit SC Q6 [facility] PRN Reason: Protocol Last Admin: 09/28/17 13:35 Dose: 1 unit Rosuvastatin Calcium (Crestor) 10 mg PO HS [facility] Last Admin: 08/26/17 22:41 Dose: 10 mg Saccharomyces Boulardii (Florastor) 250 mg PO BID [facility] Last Admin: 09/28/17 10:00 Dose: Not Given - Labs Labs: 09/28/17 07:13 09/28/17 07:13 PT 13.9 SECONDS (9.7-12.2) H 08/24/17 06:08 INR 1.2 08/24/17 06:08 APTT 55 SECONDS (21-34) H D 08/17/17 06:12 - Constitutional Appears: No Acute Distress, Chronically Ill - Head Exam Head Exam: ATRAUMATIC, NORMAL INSPECTION - Eye Exam Eye Exam: EOMI, Normal appearance - Neck Exam Neck Exam: Normal Inspection. absent: Tenderness - Respiratory Exam Respiratory Exam: Clear to Ausculation Bilateral, NORMAL BREATHING PATTERN - Cardiovascular Exam Cardiovascular Exam: REGULAR RHYTHM, +S1 - GI/Abdominal Exam GI & Abdominal Exam: Soft. absent: Tenderness - Extremities Exam Extremities Exam: Normal Inspection. absent: Pedal Edema, Tenderness - Neurological Exam Neurological Exam: Altered, Motor Sensory Deficit - Skin Skin Exam: Dry, Warm Assessment and Plan (1) Acute on chronic renal failure Status: Resolved (2) CAD (coronary artery disease) Status: Chronic (3) CHF exacerbation Status: Chronic (4) Type 2 diabetes mellitus with diabetic nephropathy Status: Acute (5) Cardiorenal disease Status: Acute (6) ESRD (end stage renal disease) Status: Acute - Assessment and Plan (Free Text) Plan: Continue dialysis TTS Same meds
--- NOTE | 2017-09-28 23:18 | CP.PCM.PN ---
Subjective - Date & Time of Evaluation Date of Evaluation: 09/28/17 Time of Evaluation: 10:15 - Subjective Subjective: Patient seen and evaluated No nw events noted Physical Examination - Constitutional Appears: Chronically Ill - Head Exam Head Exam: ATRAUMATIC, NORMAL INSPECTION, NORMOCEPHALIC - Eye Exam Eye Exam: EOMI Pupil Exam: NORMAL ACCOMODATION - ENT Exam ENT Exam: Mucous Membranes Moist - Neck Exam Additional comments: trach - Respiratory Exam Respiratory Exam: Clear to Ausculation Bilateral, NORMAL BREATHING PATTERN - Cardiovascular Exam Cardiovascular Exam: REGULAR RHYTHM - GI/Abdominal Exam GI & Abdominal Exam: Soft, Normal Bowel Sounds. absent: Distended, Tenderness - Extremities Exam Extremities Exam: absent: Joint Swelling, Tenderness - Back Exam Additional comments: 10x10 unstageable ulcer with healthy granulation tissue. No necrotic tissue. optifoam dressing with medihoney. Clear dry and intact - Neurological Exam Neurological Exam: Alert, Awake - Psychiatric Exam Psychiatric exam: Normal Affect, Normal Mood - Skin Skin Exam: Dry, Intact, Normal Color, Warm Objective - Vital Signs/Intake and Output Vital Signs (last 24 hours): Temp Pulse Resp BP Pulse Ox 98.3 F 117 H 20 129/64 96 09/28/17 15:17 09/28/17 21:04 09/28/17 15:17 09/28/17 15:17 09/28/17 15:17 Intake and Output: 09/28/17 09/29/17 18:59 06:59 Intake Total 500 400 Balance 500 400 - Medications Medications: Current Medications Acetylcysteine (Acetylcysteine 20%) 4 ml INH RQ6 [facility] Last Admin: 09/28/17 20:23 Dose: 4 ml Albuterol/Ipratropium (Duoneb 3 Mg/0.5 Mg (3 Ml) Ud) 3 ml INH RQ6 [facility] Last Admin: 09/28/17 20:22 Dose: 3 ml Apixaban (Eliquis) 2.5 mg PO BID [facility] Last Admin: 09/28/17 17:33 Dose: 2.5 mg Aspirin (Aspirin Chewable) 81 mg PO DAILY [facility] Last Admin: 09/28/17 13:35 Dose: 81 mg Calcium Acetate (Phoslo) 1,334 mg GT TID [facility] Last Admin: 09/28/17 17:33 Dose: 1,334 mg Famotidine (Pepcid) 20 mg PO DAILY [facility] Last Admin: 09/28/17 13:35 Dose: 20 mg Fluconazole (Diflucan) 100 mg PO DAILY [facility] Last Admin: 09/28/17 13:35 Dose: 100 mg Heparin Sodium (Porcine) (Heparin) 3,700 units IVP MWF [facility] Last Admin: 09/28/17 12:47 Dose: 3,700 units Insulin Aspart (Novolog) 0 unit SC Q6 [facility] PRN Reason: Protocol Last Admin: 09/28/17 17:33 Dose: 1 unit Rosuvastatin Calcium (Crestor) 10 mg PO HS [facility] Last Admin: 08/26/17 22:41 Dose: 10 mg Saccharomyces Boulardii (Florastor) 250 mg PO BID [facility] Last Admin: 09/28/17 17:33 Dose: 250 mg - Labs Labs: 09/28/17 07:13 09/28/17 07:13 PT 13.9 SECONDS (9.7-12.2) H 08/24/17 06:08 INR 1.2 08/24/17 06:08 APTT 55 SECONDS (21-34) H D 08/17/17 06:12 Assessment and Plan - Assessment and Plan (Free Text) Assessment: Assessment and Plan - Assessment and Plan (Free Text) Assessment: Atrial Fibrillation Intermittent Rate controlled. On Metoprolol 50 mg PO BID, Eliquis 2.5 mg PO BID CAD, chest pain -No current plans for cardiac cath (acute respiratory failure and elevated Cr) , history of abnormal stress test -Elevated Troponin likely due to chest compressions during cardiac arrest 08/10 -No acute ST changes on EKG -Continue ASA, Crestor, Metoprolol. -Echocardiogram from 08/08/17 showed left ventricle systolic function is severely impaired. EF: 25-30%; global hypokinesis of LV mild AR. MR is moderate. Moderate-severe pulmonary hypertension Systolic CHF exacerbation -CXR 09/09: Diminished bilateral basilar airspace disease; stable cardiomegaly -BNP [id number] on 08/06/17 -Continue ASA, Crestor, Metoprolol -Echocardiogram from 08/08/17 showed left ventricle systolic function is severely impaired. EF: 25-30%; global hypokinesis of LV mild AR. MR is moderate. Moderate-severe pulmonary hypertesnion Dobutamine discontinued in light of atrial flutter-type episodes Diabetes Mellitus ISS Continue to monitor ESRD on HD Currently on HD On Procrit and Scar Nephro on the case Prophylaxis Pepcid 20 mg PO daily Eliquis 2.5 mg PO BID (Renal precautions) Disposition Awaiting Transfer to LTAC
[2017-09-29] MEDS: (Novolog) Insulin Aspart, Recombinant 100 u/ml 10 ml vial SC SCH ×4 (00:37→20:47)
[2017-09-29] MEDS: Albuterol-Ipratrop 3 mg / 0.5 (3 ml) UD INH SCH ×4 (01:40→19:33)
[2017-09-29] MEDS: Acetylcysteine 20% Inhal Soln (4ml) INH SCH ×4 (01:41→19:33)
[2017-09-29 08:07] LABS: BASO # 0.1 K/uL (0.0-0.2); BASO % 0.8 % (0.0-2.0); EOS # 0.3 K/uL (0.0-0.7); HEMATOCRIT 27.2 % (35.0-51.0); LYMPH # 1.9 K/uL (1.0-4.3); LYMPH % 19.1 % (20.0-40.0); MEAN CORPUSCULAR HEMOGLOBIN 25.5 pg (27.0-31.0); MEAN CORPUSCULAR HGB CONC 31.9 g/dL (33.0-37.0); MEAN PLATELET VOLUME 7.9 fL (7.2-11.7); MONO # 0.7 K/uL (0.0-0.8); MONO % 7.4 % (0.0-10.0); NRBC % 0.1 % (0.0-2.0); RED CELL DISTRIBUTION WIDTH 24.1 % (11.5-14.5)
[2017-09-29 08:48] LABS: POTASSIUM 3.4 mmol/L (3.6-5.2)
[2017-09-29 08:50] LABS: ALB/GLOB RATIO 0.6 (1.0-2.1); BILIRUBIN,TOTAL 0.4 mg/dL (0.2-1.3); PHOSPHOROUS 2.7 mg/dL (2.5-4.5); TOTAL PROTEIN 6.8 g/dL (6.3-8.3)
[2017-09-29 08:51] LABS: MAGNESIUM 2.2 mg/dL (1.6-2.3)
--- NOTE | 2017-09-29 09:16 | CP.PCM.PN ---
<Sina White - Last Filed: 09/29/17 19:47> Subjective - Date & Time of Evaluation Date of Evaluation: 09/29/17 Time of Evaluation: 09:13 - Subjective Subjective: Medicine Progress Note for Dr. Barth HPI: Patient seen and examined at bedside. Awake and alert. ROS unattainable. Objective - Vital Signs/Intake and Output Vital Signs (last 24 hours): Temp Pulse Resp BP Pulse Ox 98.2 F 114 H 20 128/64 96 09/29/17 08:00 09/29/17 08:00 09/29/17 08:00 09/29/17 08:00 09/29/17 08:00 Intake and Output: 09/29/17 09/29/17 06:59 18:59 Intake Total 400 Balance 400 - Medications Medications: Current Medications Acetylcysteine (Acetylcysteine 20%) 4 ml INH RQ6 [facility] Last Admin: 09/29/17 07:58 Dose: 4 ml Albuterol/Ipratropium (Duoneb 3 Mg/0.5 Mg (3 Ml) Ud) 3 ml INH RQ6 [facility] Last Admin: 09/29/17 07:58 Dose: 3 ml Apixaban (Eliquis) 2.5 mg PO BID [facility] Last Admin: 09/28/17 17:33 Dose: 2.5 mg Aspirin (Aspirin Chewable) 81 mg PO DAILY [facility] Last Admin: 09/28/17 13:35 Dose: 81 mg Calcium Acetate (Phoslo) 1,334 mg GT TID [facility] Last Admin: 09/28/17 17:33 Dose: 1,334 mg Famotidine (Pepcid) 20 mg PO DAILY [facility] Last Admin: 09/28/17 13:35 Dose: 20 mg Fluconazole (Diflucan) 100 mg PO DAILY [facility] Last Admin: 09/28/17 13:35 Dose: 100 mg Heparin Sodium (Porcine) (Heparin) 3,700 units IVP MWF [facility] Last Admin: 09/28/17 12:47 Dose: 3,700 units Insulin Aspart (Novolog) 0 unit SC Q6 [facility] PRN Reason: Protocol Last Admin: 09/29/17 08:14 Dose: 3 unit Rosuvastatin Calcium (Crestor) 10 mg PO HS [facility] Last Admin: 08/26/17 22:41 Dose: 10 mg Saccharomyces Boulardii (Florastor) 250 mg PO BID [facility] Last Admin: 09/28/17 17:33 Dose: 250 mg - Labs Labs: 09/29/17 07:55 09/29/17 07:55 PT 13.9 SECONDS (9.7-12.2) H 08/24/17 06:08 INR 1.2 08/24/17 06:08 APTT 55 SECONDS (21-34) H D 08/17/17 06:12 - Additional Findings Additional findings: - Constitutional Appears: Chronically Ill - Head Exam Head Exam: ATRAUMATIC, NORMAL INSPECTION, NORMOCEPHALIC - Eye Exam Eye Exam: EOMI Pupil Exam: NORMAL ACCOMODATION - ENT Exam ENT Exam: Mucous Membranes Moist - Neck Exam Additional comments: trach, blood in trach collar - Respiratory Exam Respiratory Exam: Clear to Ausculation Bilateral, NORMAL BREATHING PATTERN - Cardiovascular Exam Cardiovascular Exam: REGULAR RHYTHM, tachycardic - GI/Abdominal Exam GI & Abdominal Exam: Soft, Normal Bowel Sounds. absent: Distended, Tenderness - Extremities Exam Extremities Exam: absent: Joint Swelling, Tenderness - Back Exam Additional comments: 10x10 unstageable ulcer with healthy granulation tissue. No necrotic tissue. optifoam dressing with medihoney. Clear dry and intact - Neurological Exam Neurological Exam: Alert, Awake - Psychiatric Exam Psychiatric exam: Normal Affect, Normal Mood - Skin Skin Exam: Dry, Intact, Normal Color, Warm Assessment and Plan - Assessment and Plan (Free Text) Assessment: (1) Acute Respiratory Failure ARDS Cardiac Arrest Pulmonary Edema Nonstemi Assessment and Plan: * Code Blue on 08/10: asystole, cardiopulmonary resuscitative measures initiated , requiring 3 epis, bicarbonate, ROSC achieved and intubated and brought to the ICU for further management; Patient in the ICU from 08/10 until present. * Pulmonary: Dr Mena (Dr. Jeffers covering until 09/04/17)-->help appreciated * Cardiology: Dr. Cortés on board-->help appreciated * GI (Dr. Wills) on board-->help appreciated * S/P Tracheostomy 08/22 * S/P Peg tube placement 08/25 * s/p insertion of right posterior chest tube 08/19-->removed 08/24/17 * There was consideration for possible thoracentesis of left side pleural effusion, evaluated by IR, there is no fluid to drain per Dr. Gross * Chest xray (08/26): right arm PICC is seen with the tip of distal subclavian vein. PICC may be used * Per cardiology, * Restart Aspirin 81mg PO daily * Patient does not need Plavix at this time * Recommend for Eliquis 2.5mg PO BID for atrial flutter * 08/27: patient is pending LTAC, he went eventually need cardiac catheterization when he has stabilized. Held statin secondary to elevated LFTs. Discussed with Dr. Cortés, lowered Amiodarone 200mg PO daily * 08/28: patient is pending LTAC, he went eventually need cardiac catheterization when he has stabilized. Liver function tests improving * 08/29: Coding Advisor Nehal has sent request to insurance for authorization for LTAC-->pending * 09/06: pending social work/case management approval for LTAC * 09/07: pending social work/case management approval for LTAC * 09/08: Unable to get approval for LTAC; pending other options * 09/09: Transferred from step-down ICU to the floors * 09/13: Trasnferred back to ICU S/P Rapid Response for low blood pressure * 09/14: Currently on Acetylcysteine 20 % Neb Q6H and Duoneb Q6H * 09/15: Passy Flex Trach placed by [facility] (2) Abnormal Stress Test History of AICD History of Coronary Artery Disease Assessment and Plan: * Cardiology (Dr. Cortés) on board-->help appreciated * TSH: 1.16; T4: 1.53 * Echocardiogram (08/08/17): left ventricle systolic function is severely impaired. EF: 25-30%; global hypokinesis of left ventricle mild aortic regurgitation. Mitral regurgitation is moderate. Moderate-severe pulmonary hypertension * Plan was for cardiac catheterization; delayed due to acute renal failure; Attempted gentle hydration and mucomyst on 08/09 to optimize prior to cath * On 08/10, patient was in asystole, ACLS protocol, ROSC achieved, intubated and transfered to the ICU. Patient in acute pulmonary edema. * Patient hospitalized in the ICU since 08/10/17 to present. * Medications: * Aspirin 81mg PO daily * Plavix d/c by cardiology * Lopressor 50mg PO bid * d/c Crestor 10mg POqHS secondary to rise in LFTS 08/27--->monitor LFTs daily * ARB d/c secondary to acute renal failure * 08/27: patient is pending LTAC, he went eventually need cardiac catheterization when he has stabilized. Held statin secondary to elevated LFTs. Discussed with Dr. Cortés, lowered Amiodarone 200mg PO daily * 08/28: He will eventually need cardiac catheterization when he has stabilized. Liver function tests improving. Statin is on hold (3) Atrial flutter Assessment and Plan: * Cardiology (Dr. Cortés) on board-->help appreciated * Refractory to Lopressor/Cardizem IVP * Eliquis 2.5mg PO bid * Amiodarone bolus-->Amiodarine drip on 08/24-->converted to Amiodarone 200mg PO TID on 08/26 and this was decreased to 200 mg 1x/day due to increased LFTs * 08/27: Discussed with Dr. Cortés, will lower Amiodarone 200mg PO daily and monitor LFTs. Statin held and tylenol d/c * 08/29: patient is pending LTAC, he will eventually need cardiac catheterization when he has stabilized. Liver function tests improving. Statin is on hold due to the elevated LFTs * 08/30: Cardiology discontinued the Amiodarone * 09/07: Held eliquis; will need to resume * 09/09: Eliquis resumed, off Amiodarone Status: Acute (4) Acute on Chronic Systolic CHF exacerbation Assessment and Plan: * Cardiology (Dr. Cortés) on board-->help appreciated * Transferred to the ICU on 08/10 following cardiac arrest and intubation. * Echocardiogram (08/08/17): left ventricular systolic function is severely impaired. EF: 25-30%; global hypokinesis of left ventricle mild aortic regurgitation. Mitral regurgitation is moderate. Moderate-severe pulmonary hypertension * Medications: * Aspirin 81mg PO daily * Plavix d/c by cardiology * Lopressor 50mg PO bid * d/c Crestor 10mg POqHS on 08/27 secondary to rise in LFTs * ARB d/c secondary to acute renal failure Status: Acute (5) Leukocytosis Assessment and Plan: * Patient's white count downtrending * Pleural Fluid 08/19/17 did not show any growth * Blood cultures (08/26): no growth X5 days * UA and urine culture (08/27): Urine Culture showed Yeast Species. * Patient has elevated LFTs-->did not start anti-fungal in light of LFTs New: * 09/05/17 Blood: gram positive cocci-->pending speciation * 09/05/17 Blood: no growth after 4 days * 09/07/17 Legionella Culture: negative * 09/07/17 Mycobacteria: negative * 09/07/17 Sputum: Enterocloace Bacter; yeast * 09/07/17 Blood: negative X 48 hours * 09/07/17 Blood: negative X 48 hours * 09/06: stool culture pending; has not had diarrhea or bowel movement * 09/07: Dr. Zimmer (covering Dr. Lawrence) to see the patient given elevated procalcitonin * Blood Culture 09/13/17 is negative to date and Urine Culture 09/13/17 showed Yeast Species * 09/14: Could this be secondary to the Septic Shock? Secondary to Osteomyelitis of the Sacrum? 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) and Meropenem 500 mg IV Q8H (09/13/17 through 09/16/17), Diflucan 200 mg PO 1x/day (09/13/17), Bactrim 10 mL PO Q12H (09/12/17 through 09/16/17), Tigecycline 50 mg IV Q12H (09/16/17 started because of VRE on Sacrum Wound Culture 09/14/17) * ESR 09/14/17 elevated at 89 * Bone Scan performed 09/17/17 to check for Osteomyelitis at the Sacrum: results are pending * Meropenem 500 mg IV Q12H (09/13/17 through 09/16/17: which will cover the Enterbacter in the Sputum 09/07/17 and the possibility of Sacral Osteomyelitis) * Antibiotics as of 09/17/17:Tigecycline (09/16/17: which will cover the VRE in Sacral Wound Culture 09/14/17 and the possibility of Sacral Osteomyelitis) and Diflucan 200 mg PO 1x/day (09/13/17: which will cover with Yeast in the Sputum, Urine, and Sacral Wound Culture) Status: Acute (6) Pneumonia Assessment and Plan: * Pulmonary (Dr. Mena) on board-->help appreciated; Dr. Jeffers covering while Dr. Mena away * Infectious Disease (Dr. Lawrence)-->help appreciated * Chest xray (08/26): right arm PICC is seen with the tip of distal subclavian vein. PICC may be used * Rapid A strep, Influenza A and B studies, Urine Legionella, Mycoplasma studies = Negative * Florastor 250mg PO bid * 08/07/17: +Strep Pneumoniae in the urine * Meropenem 500mg IV Q 8 hours (08/14/17 through 08/18/17) and Zosyn 2.25 mg IV Q6H (08/13/17 through 08/18/17) * Cefepime 1 gm IV Q24H: started on 08/19/17 and was discontinued by ID Dr. Lawrence on 08/30/17: monitor vitals and labs * s/p right posterior chest tube 08/19-08/24 * Sputum Culture 08/19/17 shows No growth * Pleural fluid 08/19/17: No growth * 09/07/17 Sputum: Enterocloace Bacter and Yeast Species: See Antibiotic treatment in previous Assessment and Plan * Sputum 09/10/17 shows NO AFB Status: Acute (7) HTN (hypertension) Assessment and Plan: * Lopressor 50mg PO bid * Lisinopril 5mg PO daily Status: Chronic (8) CKD (chronic kidney disease) on Dialysis Assessment and Plan: * Dr. Miranda (nephrology) consulted on the case * Hx of CKD-->Started on dialysis 08/15/17 * Kurtis catheter placed and removed 08/22 * s/p Right Chest Permcath 08/22 * Patient is on dialysis M-W-F; oliguric * Phoslo 1334mg GT TID * Epoetin 10,000 unit IV MWF Status: Acute (9) Diabetes mellitus Assessment and Plan: * Accuchecks Q6H * HgbA1c 8.4 * Started peg feedings on 08/26/17 * Nepro-->50 ml/hour but this was held 09/13/17 due suspicion of Bowel Obstruction as NO bowel Movement since 09/07/17. This was restarted on after NO obstruction was observed on Obstruction Series 09/13/17 and after multiple bowel movement s/p Fleet Enema 09/13/17 (10) HLD (hyperlipidemia) Assessment and Plan: * 08/27: held Crestor 10 mg PO HS secondary to rise in LFTs * 08/29: Liver function tests improving; waiting to restart statin Status: Chronic (11) Anemia Assessment and Plan: * Heme-oncology (Dr. Giles bender) on board-->help appreciated * Likely iron deficiency anemia based on prior admissions * Ferritin 27.4, Iron 22, TIBC 322, % Saturation 7 * Ferric Sodium Gluconate 125mg IVPB daily (active 08/08-08/16) * Procrit 10,000 units -- * Monitor Hgb/Hct: stable Status: Chronic (12) History of DVT (deep vein thrombosis) Assessment and Plan: * Patient was previously on Eliquis for a prior history of DVT. * Repeat dopplers 08/09/17 are negative for DVT * Off Heparin Drip 08/17/17 * Started Eliquis 2.5mg PO BID for atrial flutter and history of DVT Status: Chronic (13) UTI Assessment and Plan: * Infectious disease (Dr. Lawrence) on board-->help appreciated * Exchange jaquez out and repeat urine cultures * Urine Culture 08/12/17 showed Gram Negative Rods: NO identification and NO sensitivities were performed * Meropenem 500mg IV Q 12hours (active since 08/14/17 through 08/18/17) to cover for UTI per ID * Repeat Urine Culture 08/18/17 shows NO growth * 08/25: reculture in light of leukocytosis * 08/27: pending urine studies * 08/30: Urine Culture 08/27/17 showed Yeast Species but no antifungal at that time secondary to recent history of Elevated LFTs * Urine Culture 09/13/17 showed Yeast Species: he is on Diflucan Status: Chronic (14) Confusion; Alzheimer's Dementia Assessment and Plan: * Per daughter, patient has been getting bouts of confusion over the past year but appears at baseline. Patient has not seen formal neurology as outpatient per daughter. Per , prior to event, noted Alzheimers' disease dx one year ago * CT head w/o contrast (08/10/17):acute os subacute lacune infarct is not excluded in the left basal ganglia inferiorly with definitive chronic lacune identified in the right basal ganglia superiorly. No acute or subacute lobar brain infarction is appreciable by standard CT criteria. Mild age-related neuro degenerative changes are identifed. No acute intracranial hemorrhage or mass is identified throughout * 08/26: Off Sedation-->patient moves all extremities randomly but does not follow directions * 08/27: off sedation-->patient is very calm, smiles at his * 08/28: off sedation-->patient is very calm Status: Chronic (15) Unstageable Sacral Ulcer, Left Ear Auricle Ulcer, Right Heal Ulcer Assessment and Plan: * Wound care on board * WOUND CARE NOTE (08/26)-->Pt with a sacral unstageable being treated with medihoney. No changes to dimensions at this time. Also, pt favoring Left side of head and has developed a 1x1 serous filled blister on his left ear. Primary nurse placed duoderm on the ear. Wound care nurse left duoderm in place , and recommends leaving it on until it falls off on its own. Pt has been NPO for several days, new peg inserted yesterday. Will be starting glucerna tube feedings later today. Albumin 3.3 * Turn q 2 hours * medihoney on unstageable ulcer * duoderm on left ear aurical ulcer: this is healed as of 09/15/17 * Prevalon Boots for Right Heal Blister 09/13/17 * 09/02/17: examined with Wound Care Nurse Emeka Samuel and periphery of the Sacral Wound is pink with some bleeding however center is still black and therefore still unstageable. Continue spray with Cavelon followed by thick coating with MediHoney followed by covering with OptiFoam once a day. * 09/03/17: Change of sacral ulcer dressing was performed by me with assitance from Nurse Lyman * 09/04/17: 09/03/17: Change of sacral ulcer dressing was performed by me with assistance from ALEXANDRA Unger * Per wound care note (09/07): sacral ulcer is stable per wound care nurse * 09/14/17: Sacral Ulcer is unstageable and area of blackness fills entire circumference. General Surgery consult placed to see if debridement is necessary. Continue Cavelon Mcleod followed by paulina thick coating of MediHoney followed by covering with OptiFoam. * 09/15/17: Surgery Team debrided Sacral Ulcer and Bone Scan will need to be followed up which was performed 09/17/17 * 09/18/17: With the help of Nurse Guzman, applied Cavelon Mcleod followed by thick coating of MediHoney followed by covering with OptiFoam * 09/19/17: Dressing for Sacral Ulcer already changed before my exam. Explained to Nurse Megan that best application of MediHoney would be to cover the padding of the OptiFoam with it and then apply the OptiFoam to the ulcer. Status: Acute (16) Elevated LFTs Assessment and Plan: * 08/27: Yina * Discussed with cardiology-->changed amiodarone 200mg PO tid to amiodaron 200mg PO daily * D/C tylenol * Held Statin * patient is also on Rocephin to cover for pneumonia * Will not start antifungal * 08/29: starting to down trending since change in amiodarone dose; awaiting to restart statin * 08/30: continues to trend down. Amiodarone was discontinued * 09/01: AST, ALT, Alk Phos still elevated but stable * 09/02: AST, ALT, Alk Phos still elevated but stable * 09/03: LFTs stable * 09/04: LFTs stable Status: Acute (17). Hx Constipation * Monitor bowel movement * Multiple bowel movements on 09/13/17 and 09/14/17 that are well formed s/p Fleet Enema on 09/13/17 * 09/15/17: NO bowel movement * 09/16/17: Soft pasty bowel movement * 09/17/17: Soft pasty bowel movement * 09/18/17: NO bowel movement * 09/19/17: ordered one dose of Lactulose 20 gm via PEG as still no bowel movement (18). Hyponatremia * 09/19/17: at 127 monitor for now (19). Prophylactic measure Assessment and Plan: * Pepcid 20mg PO daily * Start Eliquis 2.5mg PO BID * s/p peg placement 08/25 * s/p trachesostomy 08/22 * s/p Permcath placement 08/22 removal Kurtis catheter * s/p right posterior chest tube 08/19-->removed 08/24 * s/p Right Arm PICC 08/26 * (Jovita Serrano): -->number provided to the nurse- ->consented for peg placement; discussed about LTAC 08/26 * Spoke with Dr. Pickard, MARIAJOSE regarding patient's hospitalization up until this point 08/2609/01/17: Dr. Cullen Barth spoke with the patient's [place] with the assistance of Nurse Beth on 3 tower (as multiple attempts of using [employer] P[employer] indicated that all of the [place] translators were busy) and explained all of the patient's diagnosises. 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 Her ultimate wish is to take patient to [facility] where their children live. I explained to patient that I would not know how that would be coordinated but that the Social Workers/Office Communication Professor at LTAC may be of assistance in this regard. I also informed her that I am not aware of any insurance company that would finance this request. She understands that the patient is awaiting insurance approval for LTAC. 09/01/17 and 09/02/17: Dr. Cullen Barth spoke with Transfer Station Attendant Demetria and we are still awaiting insurance authorization for LTAC placement. 09/05/17: Spoke with nehal, social work manager, wean trials sent to LTAC pending approval no word yet regarding approval. Ordered for repeat cultures given uptrend in white count. 09/06/17: pending repeat cultures in light of elevated procalcitonin; ID recommended to reculture. Note: patients PICC lined had clogged ports. Red port remains clogged in spite of cath rafaela. Blue port improved after cath rafaela. Possible may need to remove line to r/o infected line. Strong suspicion due to patient's pneumonia given he has thick secretions. 09/07/17: Infectious disease. pending repeat cultures in light of elevated procalcitonin; Note: patients PICC lined had clogged ports. Red port remains clogged in spite of cath rafaela. Blue port improved after cath rafaela. Hip xray negative for acute fracture. There are no noted falls. 09/08/17: Patient denied for LTAC; awaiting for other options from case management/social work. Resident Eng spoke with Dr. Cortés, patient be transferred under regular bed, when bed is available. Infectious disease on board; Patient started on IV Vancomycin in light of + blood culture. Pending chest xray. 09/09/17: Patient denied for LTAC; awaiting for other options from case management/social work with alisha verdin support. Patient started on IV Vancomycin MWF in light of + blood culture. Pending chest xray. F/U sputum with ID. f/u latest blood cultures. 09/13/17: Rapid response for low blood pressure and elevated WBC likely Septic Shock. Started on Levophed, added Meropenem to Vancomycin and 1 dose of Gentamycin given after speaking with ID. Ordered Obstruction Series as no bowel movement since 09/07/17. F/U Shock Panel. Discussed with ICU Resident to arrange for Change of Right Arm Midline line and Trach Collar. 09/14/17: Will await results of Blood Culture 09/13/17 to determine if the Right Arm Midline, Right Chest Perm Cath, and Trach Collar needs to be changed. Spoke with Transfer Station Attendant Demetria in ICU and patient information has been sent to [facility] and [facility] (they accept patients on Trach) and she is awaiting to hear back from them before submitting approval request to insurance company. 09/15/17: Passy Flex Trach placed by [facility]. Surgical Team for debridement of Sacral Ulcer. Spoke with patient's ([place] Denisa [id number]) and explained/updated her on patient condition and obtained consent for sacral ulcer debridement. 09/16/17: Still awaiting performance of Sacral Bone Scan 09/17/17: Bone Scan performed and awaiting results 09/18/17: Awaiting Bone Scan Report 09/19/17: Still awaiting Bone Scan Report. Spoke again with Transfer Station Attendant Demetria and NO word yet from [facility] or [facility] (they do treat patients with Trachs). 09/20/17: Repeat Wound culture and urine culture sent. Dressing changed with medihoney and optifoam. No other changes at this time. Still waiting for approval for [facility] 09/21/17: No changes at this time. Will continue to change wound dressing Q3D and follow up with case management for for prison transfer. 09/22/17: Dressing changed today with medihoney. Healing appropriately. Talked to case management. Still no update from correction transfer. Bone scan negative for osteo. Repeat wound cultures continue to grow Enterococcus. Will follow up sensitivities 09/26/17: Dialysis today. Dressing changed with optifoam and medihoney (nickel thick). VRE/germania in wound. Talked to case management. No updates at this time 09/27/17: dressing changed today with optifoam and medihoney (Nickel thick). Case management says no new information from [facility]. Will update as new information becomes available. 09/28/17: dressing changed today with optifoam and medihoney (Nickel thick). Case management says no new information from [facility]. Will update as new information becomes available. 3x3cm unstageable ulcer on R. heel present. Will talk to surgery for possible bedside debridment. 09/29/17:Talked to case management again today. No new information. Patient is tachycardiac and having blood tinged sputum in his trach collar. Will order a chest xray. <Cullen Barth - Last Filed: 09/29/17 20:17> Objective - Vital Signs/Intake and Output Vital Signs (last 24 hours): Temp Pulse Resp BP Pulse Ox 98.2 F 112 H 20 125/57 L 98 09/29/17 16:00 09/29/17 16:00 09/29/17 16:00 09/29/17 16:00 09/29/17 16:00 Intake and Output: 09/29/17 09/30/17 18:59 06:59 Intake Total 500 Balance 500 - Medications Medications: Current Medications Acetylcysteine (Acetylcysteine 20%) 4 ml INH RQ6 [facility] Last Admin: 09/29/17 19:33 Dose: 4 ml Albuterol/Ipratropium (Duoneb 3 Mg/0.5 Mg (3 Ml) Ud) 3 ml INH RQ6 [facility] Last Admin: 09/29/17 19:33 Dose: 3 ml Apixaban (Eliquis) 2.5 mg PO BID [facility] Last Admin: 09/29/17 12:17 Dose: Not Given Aspirin (Aspirin Chewable) 81 mg PO DAILY [facility] Last Admin: 09/29/17 12:17 Dose: Not Given Calcium Acetate (Phoslo) 1,334 mg GT TID [facility] Last Admin: 09/29/17 18:32 Dose: 1,334 mg Famotidine (Pepcid) 20 mg PO DAILY [facility] [facility] Last Admin: 09/29/17 10:24 Dose: 20 mg Ferric Sodium Gluconate Complex (Ferrlecit) 125 mg IVPB DAILY@1600 [facility] Stop: 10/07/17 16:01 Last Admin: 09/29/17 18:31 Dose: 125 mg Fluconazole (Diflucan) 100 mg PO DAILY [facility] Last Admin: 09/29/17 12:33 Dose: 100 mg Heparin Sodium (Porcine) (Heparin) 3,700 units IVP MWF [facility] Last Admin: 09/28/17 12:47 Dose: 3,700 units Tigecycline 50 mg/ Dextrose 100 mls @ 100 mls/hr IVPB Q12H [facility] Tigecycline 50 mg/ Dextrose 100 mls @ 100 mls/hr IVPB Q12H [facility] Insulin Aspart (Novolog) 0 unit SC Q6 [facility] PRN Reason: Protocol Last Admin: 09/29/17 12:28 Dose: 3 unit Metoprolol Tartrate (Lopressor) 50 mg PO BID [facility] Last Admin: 09/29/17 18:31 Dose: 50 mg Rosuvastatin Calcium (Crestor) 10 mg PO HS [facility] Last Admin: 08/26/17 22:41 Dose: 10 mg Saccharomyces Boulardii (Florastor) 250 mg PO BID [facility] Last Admin: 09/29/17 10:24 Dose: 250 mg - Labs Labs: 09/29/17 07:55 09/29/17 07:55 PT 13.9 SECONDS (9.7-12.2) H 08/24/17 06:08 INR 1.2 08/24/17 06:08 APTT 55 SECONDS (21-34) H D 08/17/17 06:12 Attending/Attestation - Attestation I have personally seen and examined this patient.: Yes I have fully participated in the care of the patient.: Yes I have reviewed all pertinent clinical information, including history, physical exam and plan: Yes Notes (Text): 09/29/17 20:13 Patient was seen and examined 6 PM 09/29/17. Assessment and Plan were thoroughly gone over with the resident. Also note: Patient required extra HD today due to increased Pulmonary Congestion on Chest X Ray that was done today 09/29/17 due to blood tinged suctioning from Trach. ASA and Eliquis were held and if no issues with Hgb/Hct morning 09/30/17, we will restart. 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
[2017-09-29] MEDS: Saccharomyces Boulardi 250 mg Cap PO SCH ×2 (10:24→20:36)
--- NOTE | 2017-09-29 10:52 | CP.PCM.PN ---
Subjective - Date & Time of Evaluation Date of Evaluation: 09/29/17 Time of Evaluation: 10:49 - Subjective Subjective: Has been more tachy; appears more dyspneic s/p dialysis 09/28 remains awake, lethargic, on trach collar CXR with mild CHF changes Objective - Vital Signs/Intake and Output Vital Signs (last 24 hours): Temp Pulse Resp BP Pulse Ox 98.2 F 114 H 20 128/64 96 09/29/17 08:00 09/29/17 08:00 09/29/17 08:00 09/29/17 08:00 09/29/17 08:00 Intake and Output: 09/29/17 09/29/17 06:59 18:59 Intake Total 400 Balance 400 - Medications Medications: Current Medications Acetylcysteine (Acetylcysteine 20%) 4 ml INH RQ6 [facility] Last Admin: 09/29/17 07:58 Dose: 4 ml Albuterol/Ipratropium (Duoneb 3 Mg/0.5 Mg (3 Ml) Ud) 3 ml INH RQ6 [facility] Last Admin: 09/29/17 07:58 Dose: 3 ml Apixaban (Eliquis) 2.5 mg PO BID [facility] Last Admin: 09/28/17 17:33 Dose: 2.5 mg Aspirin (Aspirin Chewable) 81 mg PO DAILY [facility] Last Admin: 09/28/17 13:35 Dose: 81 mg Calcium Acetate (Phoslo) 1,334 mg GT TID [facility] Last Admin: 09/29/17 10:24 Dose: 1,334 mg Famotidine (Pepcid) 20 mg PO DAILY [facility] Last Admin: 09/29/17 10:24 Dose: 20 mg Fluconazole (Diflucan) 100 mg PO DAILY [facility] Last Admin: 09/28/17 13:35 Dose: 100 mg Heparin Sodium (Porcine) (Heparin) 3,700 units IVP MWF [facility] Last Admin: 09/28/17 12:47 Dose: 3,700 units Insulin Aspart (Novolog) 0 unit SC Q6 [facility] PRN Reason: Protocol Last Admin: 09/29/17 08:14 Dose: 3 unit Rosuvastatin Calcium (Crestor) 10 mg PO HS [facility] Last Admin: 08/26/17 22:41 Dose: 10 mg Saccharomyces Boulardii (Florastor) 250 mg PO BID [facility] Last Admin: 09/29/17 10:24 Dose: 250 mg - Labs Labs: 09/29/17 07:55 09/29/17 07:55 PT 13.9 SECONDS (9.7-12.2) H 08/24/17 06:08 INR 1.2 08/24/17 06:08 APTT 55 SECONDS (21-34) H D 08/17/17 06:12 - Constitutional Appears: Non-toxic, Chronically Ill - Head Exam Head Exam: ATRAUMATIC, NORMAL INSPECTION - Eye Exam Eye Exam: EOMI, Normal appearance - Neck Exam Neck Exam: Normal Inspection. absent: Tenderness - Respiratory Exam Respiratory Exam: Rhonchi, Respiratory Distress - Cardiovascular Exam Cardiovascular Exam: Tachycardia, +S1 - GI/Abdominal Exam GI & Abdominal Exam: Soft. absent: Tenderness - Extremities Exam Extremities Exam: Normal Inspection. absent: Tenderness - Neurological Exam Neurological Exam: Altered, Awake, Motor Sensory Deficit - Skin Skin Exam: Dry, Warm Assessment and Plan (1) Acute on chronic renal failure Status: Resolved (2) CAD (coronary artery disease) Status: Chronic (3) CHF exacerbation Status: Chronic (4) Type 2 diabetes mellitus with diabetic nephropathy Status: Acute (5) Cardiorenal disease Status: Acute (6) ESRD (end stage renal disease) Status: Acute - Assessment and Plan (Free Text) Plan: Try to obtain dialysis today for increased UF attempts replete K
[2017-09-29] MEDS ORDERED: Potassium Chloride 20 mEq/15 ml LIQ UD PEG ONE ×2 (11:00→12:30)
[2017-09-29] MEDS ORDERED: Ferric Sodium Gluconat Complex 62.5 mg/5 ml Vial IVPB SCH (11:00)
--- NOTE | 2017-09-29 14:59 | RAD ---
Chest x-ray single frontal view History: Blood tinged sputum. Comparison: 09/20/2017 Findings: Patient is prominently rotated as the tracheostomy tube projects to the left of the midline trachea. Mild venous congestion. Patchy consolidative changes in the right infrahilar region and left lung base. Mild blunting of the left costophrenic angle suggestive for a small left pleural effusion. Right central venous catheter extending into the right atrium. Additional lines and tubes in stable position. Multiple overlying external wires and tubing. Left-sided pacemaker. Cardiomegaly. Tortuous ectatic aorta. Degenerative changes in the spine. Impression: Patient is prominently rotated as the tracheostomy tube projects to the left of the midline trachea. Mild venous congestion. Patchy consolidative changes in the right infrahilar region and left lung base. Mild blunting of the left costophrenic angle suggestive for a small left pleural effusion.
[2017-09-29] MEDS: Ferric Sodium Gluconat Complex 62.5 mg/5 ml Vial IVPB SCH (18:31)
[2017-09-29] MEDS ORDERED: Tigecycline 50 MG in Dextrose 5% In Water 100 ML IVPB SCH (20:00)
[2017-09-29] MEDS: Tigecycline 50 MG in Dextrose 5% In Water 100 ML IVPB SCH ×2 (20:36)
--- NOTE | 2017-09-29 23:23 | CP.PCM.PN ---
Subjective - Date & Time of Evaluation Date of Evaluation: 09/29/17 Time of Evaluation: 11:45 - Subjective Subjective: Patient seen and evaluated Not in distress Physical Examination - Constitutional Appears: Chronically Ill - Head Exam Head Exam: ATRAUMATIC, NORMAL INSPECTION, NORMOCEPHALIC - Eye Exam Eye Exam: EOMI Pupil Exam: NORMAL ACCOMODATION - ENT Exam ENT Exam: Mucous Membranes Moist - Neck Exam Additional comments: trach - Respiratory Exam Respiratory Exam: Clear to Ausculation Bilateral, NORMAL BREATHING PATTERN - Cardiovascular Exam Cardiovascular Exam: REGULAR RHYTHM - GI/Abdominal Exam GI & Abdominal Exam: Soft, Normal Bowel Sounds. absent: Distended, Tenderness - Extremities Exam Extremities Exam: absent: Joint Swelling, Tenderness - Back Exam Additional comments: 10x10 unstageable ulcer with healthy granulation tissue. No necrotic tissue. optifoam dressing with medihoney. Clear dry and intact - Neurological Exam Neurological Exam: Alert, Awake - Psychiatric Exam Psychiatric exam: Normal Affect, Normal Mood - Skin Skin Exam: Dry, Intact, Normal Color, Warm Objective - Vital Signs/Intake and Output Vital Signs (last 24 hours): Temp Pulse Resp BP Pulse Ox 98.2 F 90 20 125/57 L 98 09/29/17 16:00 09/29/17 18:00 09/29/17 16:00 09/29/17 16:00 09/29/17 16:00 Intake and Output: 09/29/17 09/30/17 18:59 06:59 Intake Total 500 Balance 500 - Medications Medications: Current Medications Acetylcysteine (Acetylcysteine 20%) 4 ml INH RQ6 [facility] Last Admin: 09/29/17 19:33 Dose: 4 ml Albuterol/Ipratropium (Duoneb 3 Mg/0.5 Mg (3 Ml) Ud) 3 ml INH RQ6 [facility] Last Admin: 09/29/17 19:33 Dose: 3 ml Apixaban (Eliquis) 2.5 mg PO BID [facility] Last Admin: 09/29/17 12:17 Dose: Not Given Aspirin (Aspirin Chewable) 81 mg PO DAILY [facility] Last Admin: 09/29/17 12:17 Dose: Not Given Calcium Acetate (Phoslo) 1,334 mg GT TID [facility] Last Admin: 09/29/17 18:32 Dose: 1,334 mg Famotidine (Pepcid) 20 mg PO DAILY [facility] Last Admin: 09/29/17 10:24 Dose: 20 mg Ferric Sodium Gluconate Complex (Ferrlecit) 125 mg IVPB DAILY@1600 [facility] Stop: 10/07/17 16:01 Last Admin: 09/29/17 18:31 Dose: 125 mg Fluconazole (Diflucan) 100 mg PO DAILY [facility] Last Admin: 09/29/17 12:33 Dose: 100 mg Heparin Sodium (Porcine) (Heparin) 3,700 units IVP MWF [facility] Last Admin: 09/28/17 12:47 Dose: 3,700 units Tigecycline 50 mg/ Dextrose 100 mls @ 100 mls/hr IVPB Q12H [facility] Last Admin: 09/29/17 20:36 Dose: 100 mls/hr Insulin Aspart (Novolog) 0 unit SC Q6 [facility] PRN Reason: Protocol Last Admin: 09/29/17 20:47 Dose: 1 unit Metoprolol Tartrate (Lopressor) 50 mg PO BID [facility] Last Admin: 09/29/17 18:31 Dose: 50 mg Rosuvastatin Calcium (Crestor) 10 mg PO HS [facility] Last Admin: 08/26/17 22:41 Dose: 10 mg Saccharomyces Boulardii (Florastor) 250 mg PO BID [facility] Last Admin: 09/29/17 20:36 Dose: 250 mg - Labs Labs: 09/29/17 07:55 09/29/17 07:55 PT 13.9 SECONDS (9.7-12.2) H 08/24/17 06:08 INR 1.2 08/24/17 06:08 APTT 55 SECONDS (21-34) H D 08/17/17 06:12 Assessment and Plan - Assessment and Plan (Free Text) Assessment: Assessment and Plan - Assessment and Plan (Free Text) Assessment: Atrial Fibrillation Intermittent Rate controlled. On Metoprolol 50 mg PO BID, Eliquis 2.5 mg PO BID CAD, chest pain -No current plans for cardiac cath (acute respiratory failure and elevated Cr) , history of abnormal stress test -Elevated Troponin likely due to chest compressions during cardiac arrest 08/10 -No acute ST changes on EKG -Continue ASA, Crestor, Metoprolol. -Echocardiogram from 08/08/17 showed left ventricle systolic function is severely impaired. EF: 25-30%; global hypokinesis of LV mild AR. MR is moderate. Moderate-severe pulmonary hypertension Systolic CHF exacerbation -CXR 09/09: Diminished bilateral basilar airspace disease; stable cardiomegaly -BNP [id number] on 08/06/17 -Continue ASA, Crestor, Metoprolol -Echocardiogram from 08/08/17 showed left ventricle systolic function is severely impaired. EF: 25-30%; global hypokinesis of LV mild AR. MR is moderate. Moderate-severe pulmonary hypertesnion Dobutamine discontinued in light of atrial flutter-type episodes Diabetes Mellitus ISS Continue to monitor ESRD on HD Currently on HD On Procrit and Phoslo Nephro on the case Prophylaxis Pepcid 20 mg PO daily Eliquis 2.5 mg PO BID (Renal precautions) Disposition Awaiting Transfer to LT[facility]
[2017-09-30] MEDS: (Novolog) Insulin Aspart, Recombinant 100 u/ml 10 ml vial SC SCH ×4 (00:17→18:42)
[2017-09-30] MEDS: Acetylcysteine 20% Inhal Soln (4ml) INH SCH ×4 (01:52→20:23)
[2017-09-30] MEDS: Albuterol-Ipratrop 3 mg / 0.5 (3 ml) UD INH SCH ×4 (01:53→20:24)
[2017-09-30] MEDS: Tigecycline 50 MG in Dextrose 5% In Water 100 ML IVPB SCH ×2 (05:36→18:43)
[2017-09-30] MEDS: Saccharomyces Boulardi 250 mg Cap PO SCH ×2 (10:33→18:43)
[2017-09-30 13:28] LABS: BASO # 0.1 K/uL (0.0-0.2); BASO % 1.1 % (0.0-2.0); EOS # 0.3 K/uL (0.0-0.7); EOS % 2.4 % (0.0-4.0); HEMATOCRIT 28.9 % (35.0-51.0); LYMPH # 2.1 K/uL (1.0-4.3); LYMPH % 15.4 % (20.0-40.0); MEAN CELL VOLUME 80.2 fL (80.0-94.0); MEAN CORPUSCULAR HEMOGLOBIN 24.9 pg (27.0-31.0); MEAN PLATELET VOLUME 7.6 fL (7.2-11.7); MONO # 0.8 K/uL (0.0-0.8); MONO % 5.7 % (0.0-10.0); WHITE BLOOD COUNT 13.4 K/uL (4.8-10.8)
[2017-09-30 13:36] LABS: POTASSIUM 3.8 mmol/L (3.6-5.2)
[2017-09-30 13:38] LABS: ALB/GLOB RATIO 0.7 (1.0-2.1); BILIRUBIN,TOTAL 0.6 mg/dL (0.2-1.3); TOTAL PROTEIN 6.3 g/dL (6.3-8.3)
[2017-09-30 13:39] LABS: CALCIUM 10.1 mg/dl (8.6-10.4); MAGNESIUM 2.1 mg/dL (1.6-2.3); PHOSPHOROUS 3.3 mg/dL (2.5-4.5)
--- NOTE | 2017-09-30 13:39 | CP.PCM.PN ---
Subjective - Date & Time of Evaluation Date of Evaluation: 09/30/17 Time of Evaluation: 13:35 - Subjective Subjective: Medicine Progress Note for Dr. Barth HPI: Patient seen and examined at bedside. Awake and alert. ROS unattainable. Objective - Vital Signs/Intake and Output Vital Signs (last 24 hours): Temp Pulse Resp BP Pulse Ox 98.3 F 99 H 18 123/68 96 09/30/17 08:35 09/30/17 10:30 09/30/17 08:35 09/30/17 10:30 09/30/17 08:35 - Medications Medications: Current Medications Acetylcysteine (Acetylcysteine 20%) 4 ml INH RQ6 [facility] Last Admin: 09/30/17 08:16 Dose: 4 ml Albuterol/Ipratropium (Duoneb 3 Mg/0.5 Mg (3 Ml) Ud) 3 ml INH RQ6 [facility] Last Admin: 09/30/17 08:15 Dose: 3 ml Apixaban (Eliquis) 2.5 mg PO BID [facility] Last Admin: 09/30/17 10:34 Dose: 2.5 mg Aspirin (Aspirin Chewable) 81 mg PO DAILY [facility] Last Admin: 09/30/17 10:33 Dose: 81 mg Calcium Acetate (Phoslo) 1,334 mg GT TID [facility] Last Admin: 09/30/17 13:16 Dose: Not Given Famotidine (Pepcid) 20 mg PO DAILY [facility] Last Admin: 09/30/17 10:34 Dose: 20 mg Ferric Sodium Gluconate Complex (Ferrlecit) 125 mg IVPB DAILY@1600 [facility] Stop: 10/07/17 16:01 Last Admin: 09/29/17 18:31 Dose: 125 mg Fluconazole (Diflucan) 100 mg PO DAILY [facility] Last Admin: 09/30/17 10:34 Dose: 100 mg Heparin Sodium (Porcine) (Heparin) 3,700 units IVP MWF [facility] Last Admin: 09/28/17 12:47 Dose: 3,700 units Tigecycline 50 mg/ Dextrose 100 mls @ 100 mls/hr IVPB Q12H [facility] Last Admin: 09/30/17 05:36 Dose: 100 mls/hr Insulin Aspart (Novolog) 0 unit SC Q6 [facility] PRN Reason: Protocol Last Admin: 09/30/17 12:43 Dose: 2 unit Metoprolol Tartrate (Lopressor) 50 mg PO BID [facility] Last Admin: 09/30/17 10:33 Dose: 50 mg Rosuvastatin Calcium (Crestor) 10 mg PO HS [facility] Last Admin: 08/26/17 22:41 Dose: 10 mg Saccharomyces Boulardii (Florastor) 250 mg PO BID [facility] Last Admin: 09/30/17 10:33 Dose: 250 mg - Labs Labs: 09/30/17 13:24 09/29/17 07:55 PT 13.9 SECONDS (9.7-12.2) H 08/24/17 06:08 INR 1.2 08/24/17 06:08 APTT 55 SECONDS (21-34) H D 08/17/17 06:12 - Additional Findings Additional findings: - Constitutional Appears: Chronically Ill - Head Exam Head Exam: ATRAUMATIC, NORMAL INSPECTION, NORMOCEPHALIC - Eye Exam Eye Exam: EOMI Pupil Exam: NORMAL ACCOMODATION - ENT Exam ENT Exam: Mucous Membranes Moist - Neck Exam Additional comments: trach, blood in trach collar - Respiratory Exam Respiratory Exam: Clear to Ausculation Bilateral, NORMAL BREATHING PATTERN - Cardiovascular Exam Cardiovascular Exam: REGULAR RHYTHM, tachycardic - GI/Abdominal Exam GI & Abdominal Exam: Soft, Normal Bowel Sounds. absent: Distended, Tenderness - Extremities Exam Extremities Exam: absent: Joint Swelling, Tenderness - Back Exam Additional comments: 10x10 unstageable ulcer with healthy granulation tissue. No necrotic tissue. optifoam dressing with medihoney. Clear dry and intact - Neurological Exam Neurological Exam: Alert, Awake - Psychiatric Exam Psychiatric exam: Normal Affect, Normal Mood - Skin Skin Exam: Dry, Intact, Normal Color, Warm Assessment and Plan - Assessment and Plan (Free Text) Assessment: (1) Acute Respiratory Failure ARDS Cardiac Arrest Pulmonary Edema Nonstemi Assessment and Plan: * Code Blue on 08/10: asystole, cardiopulmonary resuscitative measures initiated , requiring 3 epis, bicarbonate, ROSC achieved and intubated and brought to the ICU for further management; Patient in the ICU from 08/10 until present. * Pulmonary: Dr Mena (Dr. Jeffers covering until 09/04/17)-->help appreciated * Cardiology: Dr. Cortés on board-->help appreciated * GI (Dr. Wills) on board-->help appreciated * S/P Tracheostomy 08/22 * S/P Peg tube placement 08/25 * s/p insertion of right posterior chest tube 08/19-->removed 08/24/17 * There was consideration for possible thoracentesis of left side pleural effusion, evaluated by IR, there is no fluid to drain per Dr. Gross * Chest xray (08/26): right arm PICC is seen with the tip of distal subclavian vein. PICC may be used * Per cardiology, * Restart Aspirin 81mg PO daily * Patient does not need Plavix at this time * Recommend for Eliquis 2.5mg PO BID for atrial flutter * 08/27: patient is pending LTAC, he went eventually need cardiac catheterization when he has stabilized. Held statin secondary to elevated LFTs. Discussed with Dr. Cortés, lowered Amiodarone 200mg PO daily * 08/28: patient is pending LTAC, he went eventually need cardiac catheterization when he has stabilized. Liver function tests improving * 08/29: Gas Processing Plant Operator Nehal has sent request to insurance for authorization for LTAC-->pending * 09/06: pending social work/case management approval for LTAC * 09/07: pending social work/case management approval for LTAC * 09/08: Unable to get approval for LTAC; pending other options * 09/09: Transferred from step-down ICU to the floors * 09/13: Trasnferred back to ICU S/P Rapid Response for low blood pressure * 09/14: Currently on Acetylcysteine 20 % Neb Q6H and Duoneb Q6H * 09/15: Passy [place] Trach placed by Wool Cleaner (2) Abnormal Stress Test History of AICD History of Coronary Artery Disease Assessment and Plan: * Cardiology (Dr. Cortés) on board-->help appreciated * TSH: 1.16; T4: 1.53 * Echocardiogram (08/08/17): left ventricle systolic function is severely impaired. EF: 25-30%; global hypokinesis of left ventricle mild aortic regurgitation. Mitral regurgitation is moderate. Moderate-severe pulmonary hypertension * Plan was for cardiac catheterization; delayed due to acute renal failure; Attempted gentle hydration and mucomyst on 08/09 to optimize prior to cath * On 08/10, patient was in asystole, ACLS protocol, ROSC achieved, intubated and transfered to the ICU. Patient in acute pulmonary edema. * Patient hospitalized in the ICU since 08/10/17 to present. * Medications: * Aspirin 81mg PO daily * Plavix d/c by cardiology * Lopressor 50mg PO bid * d/c Crestor 10mg POqHS secondary to rise in LFTS 08/27--->monitor LFTs daily * ARB d/c secondary to acute renal failure * 08/27: patient is pending LTAC, he went eventually need cardiac catheterization when he has stabilized. Held statin secondary to elevated LFTs. Discussed with Dr. Cortés, lowered Amiodarone 200mg PO daily * 08/28: He will eventually need cardiac catheterization when he has stabilized. Liver function tests improving. Statin is on hold (3) Atrial flutter Assessment and Plan: * Cardiology (Dr. Cortés) on board-->help appreciated * Refractory to Lopressor/Cardizem IVP * Eliquis 2.5mg PO bid * Amiodarone bolus-->Amiodarine drip on 08/24-->converted to Amiodarone 200mg PO TID on 08/26 and this was decreased to 200 mg 1x/day due to increased LFTs * 08/27: Discussed with Dr. Cortés, will lower Amiodarone 200mg PO daily and monitor LFTs. Statin held and tylenol d/c * 08/29: patient is pending LTAC, he will eventually need cardiac catheterization when he has stabilized. Liver function tests improving. Statin is on hold due to the elevated LFTs * 08/30: Cardiology discontinued the Amiodarone * 09/07: Held eliquis; will need to resume * 09/09: Eliquis resumed, off Amiodarone Status: Acute (4) Acute on Chronic Systolic CHF exacerbation Assessment and Plan: * Cardiology (Dr. Cortés) on board-->help appreciated * Transferred to the ICU on 08/10 following cardiac arrest and intubation. * Echocardiogram (08/08/17): left ventricular systolic function is severely impaired. EF: 25-30%; global hypokinesis of left ventricle mild aortic regurgitation. Mitral regurgitation is moderate. Moderate-severe pulmonary hypertension * Medications: * Aspirin 81mg PO daily * Plavix d/c by cardiology * Lopressor 50mg PO bid * d/c Crestor 10mg POqHS on 08/27 secondary to rise in LFTs * ARB d/c secondary to acute renal failure Status: Acute (5) Leukocytosis Assessment and Plan: * Patient's white count downtrending * Pleural Fluid 08/19/17 did not show any growth * Blood cultures (08/26): no growth X5 days * UA and urine culture (08/27): Urine Culture showed Yeast Species. * Patient has elevated LFTs-->did not start anti-fungal in light of LFTs New: * 09/05/17 Blood: gram positive cocci-->pending speciation * 09/05/17 Blood: no growth after 4 days * 09/07/17 Legionella Culture: negative * 09/07/17 Mycobacteria: negative * 09/07/17 Sputum: Enterocloace Bacter; yeast * 09/07/17 Blood: negative X 48 hours * 09/07/17 Blood: negative X 48 hours * 09/06: stool culture pending; has not had diarrhea or bowel movement * 09/07: Dr. Zimmer (covering Dr. Lawrence) to see the patient given elevated procalcitonin * Blood Culture 09/13/17 is negative to date and Urine Culture 09/13/17 showed Yeast Species * 09/14: Could this be secondary to the Septic Shock? Secondary to Osteomyelitis of the Sacrum? 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) and Meropenem 500 mg IV Q8H (09/13/17 through 09/16/17), Diflucan 200 mg PO 1x/day (09/13/17), Bactrim 10 mL PO Q12H (09/12/17 through 09/16/17), Tigecycline 50 mg IV Q12H (09/16/17 started because of VRE on Sacrum Wound Culture 09/14/17) * ESR 09/14/17 elevated at 89 * Bone Scan performed 09/17/17 to check for Osteomyelitis at the Sacrum: results are pending * Meropenem 500 mg IV Q12H (09/13/17 through 09/16/17: which will cover the Enterbacter in the Sputum 09/07/17 and the possibility of Sacral Osteomyelitis) * Antibiotics as of 09/17/17:Tigecycline (09/16/17: which will cover the VRE in Sacral Wound Culture 09/14/17 and the possibility of Sacral Osteomyelitis) and Diflucan 200 mg PO 1x/day (09/13/17: which will cover with Yeast in the Sputum, Urine, and Sacral Wound Culture) Status: Acute (6) Pneumonia Assessment and Plan: * Pulmonary (Dr. Mena) on board-->help appreciated; Dr. Jeffers covering while Dr. Mena away * Infectious Disease (Dr. Lawrence)-->help appreciated * Chest xray (08/26): right arm PICC is seen with the tip of distal subclavian vein. PICC may be used * Rapid A strep, Influenza A and B studies, Urine Legionella, Mycoplasma studies = Negative * Florastor 250mg PO bid * 08/07/17: +Strep Pneumoniae in the urine * Meropenem 500mg IV Q 8 hours (08/14/17 through 08/18/17) and Zosyn 2.25 mg IV Q6H (08/13/17 through 08/18/17) * Cefepime 1 gm IV Q24H: started on 08/19/17 and was discontinued by ID Dr. Lawrence on 08/30/17: monitor vitals and labs * s/p right posterior chest tube 08/19-08/24 * Sputum Culture 08/19/17 shows No growth * Pleural fluid 08/19/17: No growth * 09/07/17 Sputum: Enterocloace Bacter and Yeast Species: See Antibiotic treatment in previous Assessment and Plan * Sputum 09/10/17 shows NO AFB Status: Acute (7) HTN (hypertension) Assessment and Plan: * Lopressor 50mg PO bid * Lisinopril 5mg PO daily Status: Chronic (8) CKD (chronic kidney disease) on Dialysis Assessment and Plan: * Dr. Miranda (nephrology) consulted on the case * Hx of CKD-->Started on dialysis 08/15/17 * Kurtis catheter placed and removed 08/22 * s/p Right Chest Permcath 08/22 * Patient is on dialysis M-W-F; oliguric * Phoslo 1334mg GT TID * Epoetin 10,000 unit IV MWF Status: Acute (9) Diabetes mellitus Assessment and Plan: * Accuchecks Q6H * HgbA1c 8.4 * Started peg feedings on 08/26/17 * Nepro-->50 ml/hour but this was held 09/13/17 due suspicion of Bowel Obstruction as NO bowel Movement since 09/07/17. This was restarted on after NO obstruction was observed on Obstruction Series 09/13/17 and after multiple bowel movement s/p Fleet Enema 09/13/17 (10) HLD (hyperlipidemia) Assessment and Plan: * 08/27: held Crestor 10 mg PO HS secondary to rise in LFTs * 08/29: Liver function tests improving; waiting to restart statin Status: Chronic (11) Anemia Assessment and Plan: * Heme-oncology (Dr. Giles bender) on board-->help appreciated * Likely iron deficiency anemia based on prior admissions * Ferritin 27.4, Iron 22, TIBC 322, % Saturation 7 * Ferric Sodium Gluconate 125mg IVPB daily (active 08/08-08/16) * Procrit 10,000 units M-W- * Monitor Hgb/Hct: stable Status: Chronic (12) History of DVT (deep vein thrombosis) Assessment and Plan: * Patient was previously on Eliquis for a prior history of DVT. * Repeat dopplers 08/09/17 are negative for DVT * Off Heparin Drip 08/17/17 * Started Eliquis 2.5mg PO BID for atrial flutter and history of DVT Status: Chronic (13) UTI Assessment and Plan: * Infectious disease (Dr. Lawrence) on board-->help appreciated * Exchange jaquez out and repeat urine cultures * Urine Culture 08/12/17 showed Gram Negative Rods: NO identification and NO sensitivities were performed * Meropenem 500mg IV Q 12hours (active since 08/14/17 through 08/18/17) to cover for UTI per ID * Repeat Urine Culture 08/18/17 shows NO growth * 08/25: reculture in light of leukocytosis * 08/27: pending urine studies * 08/30: Urine Culture 08/27/17 showed Yeast Species but no antifungal at that time secondary to recent history of Elevated LFTs * Urine Culture 09/13/17 showed Yeast Species: he is on Diflucan Status: Chronic (14) Confusion; Alzheimer's Dementia Assessment and Plan: * Per daughter, patient has been getting bouts of confusion over the past year but appears at baseline. Patient has not seen formal neurology as outpatient per daughter. Per , prior to event, noted Alzheimers' disease dx one year ago * CT head w/o contrast (08/10/17):acute os subacute lacune infarct is not excluded in the left basal ganglia inferiorly with definitive chronic lacune identified in the right basal ganglia superiorly. No acute or subacute lobar brain infarction is appreciable by standard CT criteria. Mild age-related neuro degenerative changes are identifed. No acute intracranial hemorrhage or mass is identified throughout * 08/26: Off Sedation-->patient moves all extremities randomly but does not follow directions * 08/27: off sedation-->patient is very calm, smiles at his * 08/28: off sedation-->patient is very calm Status: Chronic (15) Unstageable Sacral Ulcer, Left Ear Auricle Ulcer, Right Heal Ulcer Assessment and Plan: * Wound care on board * WOUND CARE NOTE (08/26)-->Pt with a sacral unstageable being treated with medihoney. No changes to dimensions at this time. Also, pt favoring Left side of head and has developed a 1x1 serous filled blister on his left ear. Primary nurse placed duoderm on the ear. Wound care nurse left duoderm in place , and recommends leaving it on until it falls off on its own. Pt has been NPO for several days, new peg inserted yesterday. Will be starting glucerna tube feedings later today. Albumin 3.3 * Turn q 2 hours * medihoney on unstageable ulcer * duoderm on left ear aurical ulcer: this is healed as of 09/15/17 * Prevalon Boots for Right Heal Blister 09/13/17 * 09/02/17: examined with Wound Care Nurse Emeka Samuel and periphery of the Sacral Wound is pink with some bleeding however center is still black and therefore still unstageable. Continue spray with Cavelon followed by thick coating with MediHoney followed by covering with OptiFoam once a day. * 09/03/17: Change of sacral ulcer dressing was performed by me with assitance from Nurse Lyman * 09/04/17: 09/03/17: Change of sacral ulcer dressing was performed by me with assistance from ALEXANDRA Unger * Per wound care note (09/07): sacral ulcer is stable per wound care nurse * 09/14/17: Sacral Ulcer is unstageable and area of blackness fills entire circumference. General Surgery consult placed to see if debridement is necessary. Continue Cavelon [place] followed by paulina thick coating of MediHoney followed by covering with OptiFoam. * 09/15/17: Surgery Team debrided Sacral Ulcer and Bone Scan will need to be followed up which was performed 09/17/17 * 09/18/17: With the help of Nurse Guzman, applied Cavelon [place] followed by thick coating of MediHoney followed by covering with OptiFoam * 09/19/17: Dressing for Sacral Ulcer already changed before my exam. Explained to Nurse Guzman that best application of MediHoney would be to cover the padding of the OptiFoam with it and then apply the OptiFoam to the ulcer. Status: Acute (16) Elevated LFTs Assessment and Plan: * 08/27: Yina * Discussed with cardiology-->changed amiodarone 200mg PO tid to amiodaron 200mg PO daily * D/C tylenol * Held Statin * patient is also on Rocephin to cover for pneumonia * Will not start antifungal * 08/29: starting to down trending since change in amiodarone dose; awaiting to restart statin * 08/30: continues to trend down. Amiodarone was discontinued * 09/01: AST, ALT, Alk Phos still elevated but stable * 09/02: AST, ALT, Alk Phos still elevated but stable * 09/03: LFTs stable * 09/04: LFTs stable Status: Acute (17). Hx Constipation * Monitor bowel movement * Multiple bowel movements on 09/13/17 and 09/14/17 that are well formed s/p Fleet Enema on 09/13/17 * 09/15/17: NO bowel movement * 09/16/17: Soft pasty bowel movement * 09/17/17: Soft pasty bowel movement * 09/18/17: NO bowel movement * 09/19/17: ordered one dose of Lactulose 20 gm via PEG as still no bowel movement (18). Hyponatremia * 09/19/17: at 127 monitor for now (19). Prophylactic measure Assessment and Plan: * Pepcid 20mg PO daily * Start Eliquis 2.5mg PO BID * s/p peg placement 08/25 * s/p trachesostomy 08/22 * s/p Permcath placement 08/22 removal Kurtis catheter * s/p right posterior chest tube 08/19-->removed 08/24 * s/p Right Arm PICC 08/26 * (Jovita Serrano): -->number provided to the nurse- ->consented for peg placement; discussed about LTAC 08/26 * Spoke with Dr. Pickard, MARIAJOSE regarding patient's hospitalization up until this point 08/2609/01/17: Dr. Cullen Barth spoke with the patient's [place] with the assistance of Nurse Campos on 3 tower (as multiple attempts of using [employer] indicated that all of the [place] translators were busy) and explained all of the patient's diagnosises. 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 Her ultimate wish is to take patient to [facility] where their children live. I explained to patient that I would not know how that would be coordinated but that the Social Workers/Market President at LTAC may be of assistance in this regard. I also informed her that I am not aware of any insurance company that would finance this request. She understands that the patient is awaiting insurance approval for LTAC. 09/01/17 and 09/02/17: Dr. Cullen Barth spoke with Dairy Equipment Installer Demetria and we are still awaiting insurance authorization for LTAC placement. 09/05/17: Spoke with [employer] social service agency director, wean trials sent to LTAC pending approval no word yet regarding approval. Ordered for repeat cultures given uptrend in white count. 09/06/17: pending repeat cultures in light of elevated procalcitonin; ID recommended to reculture. Note: patients PICC lined had clogged ports. Red port remains clogged in spite of cath rafaela. Blue port improved after cath rafaela. Possible may need to remove line to r/o infected line. Strong suspicion due to patient's pneumonia given he has thick secretions. 09/07/17: Infectious disease. pending repeat cultures in light of elevated procalcitonin; Note: patients PICC lined had clogged ports. Red port remains clogged in spite of cath rafaela. Blue port improved after cath rafaela. Hip xray negative for acute fracture. There are no noted falls. 09/08/17: Patient denied for LTAC; awaiting for other options from case management/social work. Resident Eng spoke with Dr. Cortés, patient be transferred under regular bed, when bed is available. Infectious disease on board; Patient started on IV Vancomycin in light of + blood culture. Pending chest xray. 09/09/17: Patient denied for LTAC; awaiting for other options from case management/social work with kamlesh verdin support. Patient started on IV Vancomycin MWF in light of + blood culture. Pending chest xray. F/U sputum with ID. f/u latest blood cultures. 09/13/17: Rapid response for low blood pressure and elevated WBC likely Septic Shock. Started on Levophed, added Meropenem to Vancomycin and 1 dose of Gentamycin given after speaking with ID. Ordered Obstruction Series as no bowel movement since 09/07/17. F/U Shock Panel. Discussed with ICU Resident to arrange for Change of Right Arm Midline line and Trach Collar. 09/14/17: Will await results of Blood Culture 09/13/17 to determine if the Right Arm Midline, Right Chest Perm Cath, and Trach Collar needs to be changed. Spoke with Dairy Equipment Installer Demetria in ICU and patient information has been sent to [facility] (they accept patients on Trach) and she is awaiting to hear back from them before submitting approval request to insurance [employer]. 09/15/17: Passy Flex Trach placed by Wool Cleaner. Surgical Team for debridement of Sacral Ulcer. Spoke with patient's ([place] Denisa [id number]) and explained/updated her on patient condition and obtained consent for sacral ulcer debridement. 09/16/17: Still awaiting performance of Sacral Bone Scan 09/17/17: Bone Scan performed and awaiting results 09/18/17: Awaiting Bone Scan Report 09/19/17: Still awaiting Bone Scan Report. Spoke again with Dairy Equipment Installer Demetria and NO word yet from [facility] or [facility] (they do treat patients with Trachs). 09/20/17: Repeat Wound culture and urine culture sent. Dressing changed with medihoney and optifoam. No other changes at this time. Still waiting for approval for [facility] 09/21/17: No changes at this time. Will continue to change wound dressing Q3D and follow up with case management for for care home transfer. 09/22/17: Dressing changed today with medihoney. Healing appropriately. Talked to case management. Still no update from group home transfer. Bone scan negative for osteo. Repeat wound cultures continue to grow Enterococcus. Will follow up sensitivities 09/26/17: Dialysis today. Dressing changed with optifoam and medihoney (nickel thick). VRE/germania in wound. Talked to case management. No updates at this time 09/27/17: dressing changed today with optifoam and medihoney (Nickel thick). Case management says no new information from [facility]. Will update as new information becomes available. 09/28/17: dressing changed today with optifoam and medihoney (Nickel thick). Case management says no new information from [facility]. Will update as new information becomes available. 3x3cm unstageable ulcer on R. heel present. Will talk to surgery for possible bedside debridment. 09/29/17:Talked to case management again today. No new information. Patient is tachycardiac and having blood tinged sputum in his trach collar. Will order a chest xray. 09/30/17: Talked to case management again today. No new information. went for dialysis yesterday due to excess fluid. Changed dressing at bedside today.
--- NOTE | 2017-09-30 14:16 | CP.PCM.PN ---
Subjective - Date & Time of Evaluation Date of Evaluation: 09/30/17 Time of Evaluation: 14:14 - Subjective Subjective: stable dialysis 09/29 for fluid overload on dialysis again same lethargy Objective - Vital Signs/Intake and Output Vital Signs (last 24 hours): Temp Pulse Resp BP Pulse Ox 98 F 86 18 125/60 96 09/30/17 13:20 09/30/17 13:20 09/30/17 13:20 09/30/17 13:20 09/30/17 08:35 - Medications Medications: Current Medications Acetylcysteine (Acetylcysteine 20%) 4 ml INH RQ6 [facility] Last Admin: 09/30/17 13:36 Dose: Not Given Albuterol/Ipratropium (Duoneb 3 Mg/0.5 Mg (3 Ml) Ud) 3 ml INH RQ6 [facility] Last Admin: 09/30/17 13:36 Dose: Not Given Apixaban (Eliquis) 2.5 mg PO BID [facility] Last Admin: 09/30/17 10:34 Dose: 2.5 mg Aspirin (Aspirin Chewable) 81 mg PO DAILY [facility] Last Admin: 09/30/17 10:33 Dose: 81 mg Calcium Acetate (Phoslo) 1,334 mg GT TID [facility] Last Admin: 09/30/17 13:16 Dose: Not Given Famotidine (Pepcid) 20 mg PO DAILY [facility] Last Admin: 09/30/17 10:34 Dose: 20 mg Ferric Sodium Gluconate Complex (Ferrlecit) 125 mg IVPB DAILY@1600 [facility] Stop: 10/07/17 16:01 Last Admin: 09/29/17 18:31 Dose: 125 mg Fluconazole (Diflucan) 100 mg PO DAILY [facility] Last Admin: 09/30/17 10:34 Dose: 100 mg Heparin Sodium (Porcine) (Heparin) 3,700 units IVP MWF [facility] Last Admin: 09/28/17 12:47 Dose: 3,700 units Tigecycline 50 mg/ Dextrose 100 mls @ 100 mls/hr IVPB Q12H [facility] Last Admin: 09/30/17 05:36 Dose: 100 mls/hr Insulin Aspart (Novolog) 0 unit SC Q6 [facility] PRN Reason: Protocol Last Admin: 09/30/17 12:43 Dose: 2 unit Metoprolol Tartrate (Lopressor) 50 mg PO BID [facility] Last Admin: 09/30/17 10:33 Dose: 50 mg Rosuvastatin Calcium (Crestor) 10 mg PO HS [facility] Last Admin: 08/26/17 22:41 Dose: 10 mg Saccharomyces Boulardii (Florastor) 250 mg PO BID [facility] Last Admin: 09/30/17 10:33 Dose: 250 mg - Labs Labs: 09/30/17 13:24 09/30/17 13:24 PT 13.9 SECONDS (9.7-12.2) H 08/24/17 06:08 INR 1.2 08/24/17 06:08 APTT 55 SECONDS (21-34) H D 08/17/17 06:12 - Constitutional Appears: No Acute Distress, Chronically Ill - Head Exam Head Exam: ATRAUMATIC, NORMAL INSPECTION - Eye Exam Eye Exam: EOMI, Normal appearance - Neck Exam Neck Exam: Normal Inspection. absent: Tenderness - Respiratory Exam Respiratory Exam: Rhonchi, NORMAL BREATHING PATTERN - Cardiovascular Exam Cardiovascular Exam: REGULAR RHYTHM, +S1 - GI/Abdominal Exam GI & Abdominal Exam: Soft. absent: Tenderness - Extremities Exam Extremities Exam: Normal Inspection. absent: Tenderness - Neurological Exam Neurological Exam: Altered, Motor Sensory Deficit - Skin Skin Exam: Dry, Warm Assessment and Plan (1) Acute on chronic renal failure Status: Resolved (2) CAD (coronary artery disease) Status: Chronic (3) CHF exacerbation Status: Chronic (4) Type 2 diabetes mellitus with diabetic nephropathy Status: Acute (5) Cardiorenal disease Status: Acute (6) ESRD (end stage renal disease) Status: Acute - Assessment and Plan (Free Text) Plan: Same dialysis MWF Monitor for CHF
[2017-09-30] MEDS: Ferric Sodium Gluconat Complex 62.5 mg/5 ml Vial IVPB SCH (15:13)
[2017-09-30] MEDS ORDERED: Bacitracin 500 Units/gm Oint Foilpak UD TOP ONE (16:11)
[2017-10-01] MEDS: (Novolog) Insulin Aspart, Recombinant 100 u/ml 10 ml vial SC SCH ×4 (00:14→18:20)
[2017-10-01] MEDS: Albuterol-Ipratrop 3 mg / 0.5 (3 ml) UD INH SCH ×4 (01:23→20:09)
[2017-10-01] MEDS: Acetylcysteine 20% Inhal Soln (4ml) INH SCH ×4 (01:25→20:09)
--- NOTE | 2017-10-01 03:23 | CP.PCM.PN ---
Subjective - Date & Time of Evaluation Date of Evaluation: 09/30/17 Time of Evaluation: 16:00 - Subjective Subjective: Patient seen and evaluated No acute events Not in distress Physical Examination - Constitutional Appears: Chronically Ill - Head Exam Head Exam: ATRAUMATIC, NORMAL INSPECTION, NORMOCEPHALIC - Eye Exam Eye Exam: EOMI Pupil Exam: NORMAL ACCOMODATION - ENT Exam ENT Exam: Mucous Membranes Moist - Neck Exam Additional comments: trach - Respiratory Exam Respiratory Exam: Clear to Ausculation Bilateral, NORMAL BREATHING PATTERN - Cardiovascular Exam Cardiovascular Exam: REGULAR RHYTHM - GI/Abdominal Exam GI & Abdominal Exam: Soft, Normal Bowel Sounds. absent: Distended, Tenderness - Extremities Exam Extremities Exam: absent: Joint Swelling, Tenderness - Back Exam Additional comments: 10x10 unstageable ulcer with healthy granulation tissue. No necrotic tissue. optifoam dressing with medihoney. Clear dry and intact - Neurological Exam Neurological Exam: Alert, Awake - Psychiatric Exam Psychiatric exam: Normal Affect, Normal Mood - Skin Skin Exam: Dry, Intact, Normal Color, Warm Objective - Vital Signs/Intake and Output Vital Signs (last 24 hours): Temp Pulse Resp BP Pulse Ox 98.1 F 101 H 20 120/59 L 99 09/30/17 23:23 09/30/17 23:35 09/30/17 23:23 09/30/17 23:23 09/30/17 23:23 Intake and Output: 09/30/17 10/01/17 18:59 06:59 Intake Total 300 500 Balance 300 500 - Medications Medications: Current Medications Acetylcysteine (Acetylcysteine 20%) 4 ml INH RQ6 [facility] Last Admin: 10/01/17 01:25 Dose: 4 ml Albuterol/Ipratropium (Duoneb 3 Mg/0.5 Mg (3 Ml) Ud) 3 ml INH RQ6 [facility] Last Admin: 10/01/17 01:23 Dose: 3 ml Apixaban (Eliquis) 2.5 mg PO BID [facility] Last Admin: 09/30/17 18:43 Dose: 2.5 mg Aspirin (Aspirin Chewable) 81 mg PO DAILY [facility] Last Admin: 09/30/17 10:33 Dose: 81 mg Calcium Acetate (Phoslo) 1,334 mg GT TID [facility] Last Admin: 09/30/17 18:43 Dose: 1,334 mg Famotidine (Pepcid) 20 mg PO DAILY [facility] Last Admin: 09/30/17 10:34 Dose: 20 mg Ferric Sodium Gluconate Complex (Ferrlecit) 125 mg IVPB DAILY@1600 [facility] Stop: 10/07/17 16:01 Last Admin: 09/30/17 15:13 Dose: 125 mg Fluconazole (Diflucan) 100 mg PO DAILY [facility] Last Admin: 09/30/17 10:34 Dose: 100 mg Heparin Sodium (Porcine) (Heparin) 3,700 units IVP MWF [facility] Last Admin: 09/30/17 15:59 Dose: 3,700 units Tigecycline 50 mg/ Dextrose 100 mls @ 100 mls/hr IVPB Q12H [facility] Last Admin: 09/30/17 18:43 Dose: 100 mls/hr Insulin Aspart (Novolog) 0 unit SC Q6 [facility] PRN Reason: Protocol Last Admin: 09/30/17 18:42 Dose: 2 unit Metoprolol Tartrate (Lopressor) 50 mg PO BID [facility] Last Admin: 09/30/17 18:21 Dose: Not Given Rosuvastatin Calcium (Crestor) 10 mg PO HS [facility] Last Admin: 08/26/17 22:41 Dose: 10 mg Saccharomyces Boulardii (Florastor) 250 mg PO BID [facility] Last Admin: 09/30/17 18:43 Dose: 250 mg - Labs Labs: 09/30/17 13:24 09/30/17 13:24 PT 13.9 SECONDS (9.7-12.2) H 08/24/17 06:08 INR 1.2 08/24/17 06:08 APTT 55 SECONDS (21-34) H D 08/17/17 06:12 Assessment and Plan - Assessment and Plan (Free Text) Assessment: Assessment and Plan - Assessment and Plan (Free Text) Assessment: Atrial Fibrillation Intermittent Rate controlled. On Metoprolol 50 mg PO BID, Eliquis 2.5 mg PO BID CAD, chest pain -No current plans for cardiac cath (acute respiratory failure and elevated Cr) , history of abnormal stress test -Elevated Troponin likely due to chest compressions during cardiac arrest 08/10 -No acute ST changes on EKG -Continue ASA, Crestor, Metoprolol. -Echocardiogram from 08/08/17 showed left ventricle systolic function is severely impaired. EF: 25-30%; global hypokinesis of LV mild AR. MR is moderate. Moderate-severe pulmonary hypertension Systolic CHF exacerbation -CXR 09/09: Diminished bilateral basilar airspace disease; stable cardiomegaly -BNP [id number] on 08/06/17 -Continue ASA, Crestor, Metoprolol -Echocardiogram from 08/08/17 showed left ventricle systolic function is severely impaired. EF: 25-30%; global hypokinesis of LV mild AR. MR is moderate. Moderate-severe pulmonary hypertesnion Dobutamine discontinued in light of atrial flutter-type episodes Diabetes Mellitus ISS Continue to monitor ESRD on HD Currently on HD On Procrit and Phoslo Nephro on the case Prophylaxis Pepcid 20 mg PO daily Eliquis 2.5 mg PO BID (Renal precautions) Disposition Awaiting Transfer to LTAC
--- NOTE | 2017-10-01 03:29 | CP.PCM.PN ---
<Uzma Alcantar - Last Filed: 10/01/17 03:25> Subjective - Date & Time of Evaluation Date of Evaluation: 10/01/17 Time of Evaluation: 03:26 - Subjective Subjective: Medicine Progress Note for Dr. Barth HPI: Patient seen and examined at bedside. Awake and alert. ROS unattainable. Objective - Vital Signs/Intake and Output Vital Signs (last 24 hours): Temp Pulse Resp BP Pulse Ox 98.1 F 101 H 20 120/59 L 99 09/30/17 23:23 09/30/17 23:35 09/30/17 23:23 09/30/17 23:23 09/30/17 23:23 Intake and Output: 09/30/17 10/01/17 18:59 06:59 Intake Total 300 500 Balance 300 500 - Medications Medications: Current Medications Acetylcysteine (Acetylcysteine 20%) 4 ml INH RQ6 [facility] Last Admin: 10/01/17 01:25 Dose: 4 ml Albuterol/Ipratropium (Duoneb 3 Mg/0.5 Mg (3 Ml) Ud) 3 ml INH RQ6 [facility] Last Admin: 10/01/17 01:23 Dose: 3 ml Apixaban (Eliquis) 2.5 mg PO BID [facility] Last Admin: 09/30/17 18:43 Dose: 2.5 mg Aspirin (Aspirin Chewable) 81 mg PO DAILY [facility] Last Admin: 09/30/17 10:33 Dose: 81 mg Calcium Acetate (Phoslo) 1,334 mg GT TID [facility] Last Admin: 09/30/17 18:43 Dose: 1,334 mg Famotidine (Pepcid) 20 mg PO DAILY [facility] Last Admin: 09/30/17 10:34 Dose: 20 mg Ferric Sodium Gluconate Complex (Ferrlecit) 125 mg IVPB DAILY@1600 [facility] Stop: 10/07/17 16:01 Last Admin: 09/30/17 15:13 Dose: 125 mg Fluconazole (Diflucan) 100 mg PO DAILY [facility] Last Admin: 09/30/17 10:34 Dose: 100 mg Heparin Sodium (Porcine) (Heparin) 3,700 units IVP MWF [facility] Last Admin: 09/30/17 15:59 Dose: 3,700 units Tigecycline 50 mg/ Dextrose 100 mls @ 100 mls/hr IVPB Q12H [facility] Last Admin: 09/30/17 18:43 Dose: 100 mls/hr Insulin Aspart (Novolog) 0 unit SC Q6 [facility] PRN Reason: Protocol Last Admin: 09/30/17 18:42 Dose: 2 unit Metoprolol Tartrate (Lopressor) 50 mg PO BID [facility] Last Admin: 09/30/17 18:21 Dose: Not Given Rosuvastatin Calcium (Crestor) 10 mg PO HS [facility] Last Admin: 08/26/17 22:41 Dose: 10 mg Saccharomyces Boulardii (Florastor) 250 mg PO BID [facility] Last Admin: 09/30/17 18:43 Dose: 250 mg - Labs Labs: 09/30/17 13:24 09/30/17 13:24 PT 13.9 SECONDS (9.7-12.2) H 08/24/17 06:08 INR 1.2 08/24/17 06:08 APTT 55 SECONDS (21-34) H D 08/17/17 06:12 - Additional Findings Additional findings: - Constitutional Appears: Chronically Ill - Head Exam Head Exam: ATRAUMATIC, NORMAL INSPECTION, NORMOCEPHALIC - Eye Exam Eye Exam: EOMI Pupil Exam: NORMAL ACCOMODATION - ENT Exam ENT Exam: Mucous Membranes Moist - Neck Exam Additional comments: trach, blood in trach collar - Respiratory Exam Respiratory Exam: Clear to Ausculation Bilateral, NORMAL BREATHING PATTERN - Cardiovascular Exam Cardiovascular Exam: REGULAR RHYTHM, tachycardic - GI/Abdominal Exam GI & Abdominal Exam: Soft, Normal Bowel Sounds. absent: Distended, Tenderness - Extremities Exam Extremities Exam: absent: Joint Swelling, Tenderness - Back Exam Additional comments: 10x10 unstageable ulcer with healthy granulation tissue. No necrotic tissue. optifoam dressing with medihoney. Clear dry and intact - Neurological Exam Neurological Exam: Alert, Awake - Psychiatric Exam Psychiatric exam: Normal Affect, Normal Mood - Skin Skin Exam: Dry, Intact, Normal Color, Warm Assessment and Plan - Assessment and Plan (Free Text) Plan: (1) Acute Respiratory Failure ARDS Cardiac Arrest Pulmonary Edema Nonstemi Assessment and Plan: * Code Blue on 08/10: asystole, cardiopulmonary resuscitative measures initiated , requiring 3 epis, bicarbonate, ROSC achieved and intubated and brought to the ICU for further management; Patient in the ICU from 08/10 until present. * Pulmonary: Dr Mena (Dr. Jeffers covering until 09/04/17)-->help appreciated * Cardiology: Dr. Cortés on board-->help appreciated * GI (Dr. Wills) on board-->help appreciated * S/P Tracheostomy 08/22 * S/P Peg tube placement 08/25 * s/p insertion of right posterior chest tube 08/19-->removed 08/24/17 * There was consideration for possible thoracentesis of left side pleural effusion, evaluated by IR, there is no fluid to drain per Dr. Gross * Chest xray (08/26): right arm PICC is seen with the tip of distal subclavian vein. PICC may be used * Per cardiology, * Restart Aspirin 81mg PO daily * Patient does not need Plavix at this time * Recommend for Eliquis 2.5mg PO BID for atrial flutter * 08/27: patient is pending LTAC, he went eventually need cardiac catheterization when he has stabilized. Held statin secondary to elevated LFTs. Discussed with Dr. Cortés, lowered Amiodarone 200mg PO daily * 08/28: patient is pending LTAC, he went eventually need cardiac catheterization when he has stabilized. Liver function tests improving * 08/29: Hotbed Lever Operator Nehal has sent request to insurance for authorization for LTAC-->pending * 09/06: pending social work/case management approval for LTAC * 09/07: pending social work/case management approval for LTAC * 09/08: Unable to get approval for LTAC; pending other options * 09/09: Transferred from step-down ICU to the floors * 09/13: Trasnferred back to ICU S/P Rapid Response for low blood pressure * 09/14: Currently on Acetylcysteine 20 % Neb Q6H and Duoneb Q6H * 09/15: Passy Flex Trach placed by Bender Machine Operator (2) Abnormal Stress Test History of AICD History of Coronary Artery Disease Assessment and Plan: * Cardiology (Dr. Cortés) on board-->help appreciated * TSH: 1.16; T4: 1.53 * Echocardiogram (08/08/17): left ventricle systolic function is severely impaired. EF: 25-30%; global hypokinesis of left ventricle mild aortic regurgitation. Mitral regurgitation is moderate. Moderate-severe pulmonary hypertension * Plan was for cardiac catheterization; delayed due to acute renal failure; Attempted gentle hydration and mucomyst on 08/09 to optimize prior to cath * On 08/10, patient was in asystole, ACLS protocol, ROSC achieved, intubated and transfered to the ICU. Patient in acute pulmonary edema. * Patient hospitalized in the ICU since 08/10/17 to present. * Medications: * Aspirin 81mg PO daily * Plavix d/c by cardiology * Lopressor 50mg PO bid * d/c Crestor 10mg POqHS secondary to rise in LFTS 08/27--->monitor LFTs daily * ARB d/c secondary to acute renal failure * 08/27: patient is pending LTAC, he went eventually need cardiac catheterization when he has stabilized. Held statin secondary to elevated LFTs. Discussed with Dr. Cortés, lowered Amiodarone 200mg PO daily * 08/28: He will eventually need cardiac catheterization when he has stabilized. Liver function tests improving. Statin is on hold (3) Atrial flutter Assessment and Plan: * Cardiology (Dr. Cortés) on board-->help appreciated * Refractory to Lopressor/Cardizem IVP * Eliquis 2.5mg PO bid * Amiodarone bolus-->Amiodarine drip on 08/24-->converted to Amiodarone 200mg PO TID on 08/26 and this was decreased to 200 mg 1x/day due to increased LFTs * 08/27: Discussed with Dr. Cortés, will lower Amiodarone 200mg PO daily and monitor LFTs. Statin held and tylenol d/c * 08/29: patient is pending LTAC, he will eventually need cardiac catheterization when he has stabilized. Liver function tests improving. Statin is on hold due to the elevated LFTs * 08/30: Cardiology discontinued the Amiodarone * 09/07: Held eliquis; will need to resume * 09/09: Eliquis resumed, off Amiodarone Status: Acute (4) Acute on Chronic Systolic CHF exacerbation Assessment and Plan: * Cardiology (Dr. Cortés) on board-->help appreciated * Transferred to the ICU on 08/10 following cardiac arrest and intubation. * Echocardiogram (08/08/17): left ventricular systolic function is severely impaired. EF: 25-30%; global hypokinesis of left ventricle mild aortic regurgitation. Mitral regurgitation is moderate. Moderate-severe pulmonary hypertension * Medications: * Aspirin 81mg PO daily * Plavix d/c by cardiology * Lopressor 50mg PO bid * d/c Crestor 10mg POqHS on 08/27 secondary to rise in LFTs * ARB d/c secondary to acute renal failure Status: Acute (5) Leukocytosis Assessment and Plan: * Patient's white count downtrending * Pleural Fluid 08/19/17 did not show any growth * Blood cultures (08/26): no growth X5 days * UA and urine culture (08/27): Urine Culture showed Yeast Species. * Patient has elevated LFTs-->did not start anti-fungal in light of LFTs New: * 09/05/17 Blood: gram positive cocci-->pending speciation * 09/05/17 Blood: no growth after 4 days * 09/07/17 Legionella Culture: negative * 09/07/17 Mycobacteria: negative * 09/07/17 Sputum: Enterocloace Bacter; yeast * 09/07/17 Blood: negative X 48 hours * 09/07/17 Blood: negative X 48 hours * 09/06: stool culture pending; has not had diarrhea or bowel movement * 09/07: Dr. Zimmer (covering Dr. Lawrence) to see the patient given elevated procalcitonin * Blood Culture 09/13/17 is negative to date and Urine Culture 09/13/17 showed Yeast Species * 09/14: Could this be secondary to the Septic Shock? Secondary to Osteomyelitis of the Sacrum? 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) and Meropenem 500 mg IV Q8H (09/13/17 through 09/16/17), Diflucan 200 mg PO 1x/day (09/13/17), Bactrim 10 mL PO Q12H (09/12/17 through 09/16/17), Tigecycline 50 mg IV Q12H (09/16/17 started because of VRE on Sacrum Wound Culture 09/14/17) * ESR 09/14/17 elevated at 89 * Bone Scan performed 09/17/17 to check for Osteomyelitis at the Sacrum: results are pending * Meropenem 500 mg IV Q12H (09/13/17 through 09/16/17: which will cover the Enterbacter in the Sputum 09/07/17 and the possibility of Sacral Osteomyelitis) * Antibiotics as of 09/17/17:Tigecycline (09/16/17: which will cover the VRE in Sacral Wound Culture 09/14/17 and the possibility of Sacral Osteomyelitis) and Diflucan 200 mg PO 1x/day (09/13/17: which will cover with Yeast in the Sputum, Urine, and Sacral Wound Culture) Status: Acute (6) Pneumonia Assessment and Plan: * Pulmonary (Dr. Mena) on board-->help appreciated; Dr. Jeffers covering while Dr. Mena away * Infectious Disease (Dr. Lawrence)-->help appreciated * Chest xray (08/26): right arm PICC is seen with the tip of distal subclavian vein. PICC may be used * Rapid A strep, Influenza A and B studies, Urine Legionella, Mycoplasma studies = Negative * Florastor 250mg PO bid * 08/07/17: +Strep Pneumoniae in the urine * Meropenem 500mg IV Q 8 hours (08/14/17 through 08/18/17) and Zosyn 2.25 mg IV Q6H (08/13/17 through 08/18/17) * Cefepime 1 gm IV Q24H: started on 08/19/17 and was discontinued by ID Dr. Lawrence on 08/30/17: monitor vitals and labs * s/p right posterior chest tube 08/19-08/24 * Sputum Culture 08/19/17 shows No growth * Pleural fluid 08/19/17: No growth * 09/07/17 Sputum: Enterocloace Bacter and Yeast Species: See Antibiotic treatment in previous Assessment and Plan * Sputum 09/10/17 shows NO AFB Status: Acute (7) HTN (hypertension) Assessment and Plan: * Lopressor 50mg PO bid * Lisinopril 5mg PO daily Status: Chronic (8) CKD (chronic kidney disease) on Dialysis Assessment and Plan: * Dr. Miranda (nephrology) consulted on the case * Hx of CKD-->Started on dialysis 08/15/17 * Kurtis catheter placed and removed 08/22 * s/p Right Chest Permcath 08/22 * Patient is on dialysis ; oliguric * Phoslo 1334mg GT TID * Epoetin 10,000 unit IV MWF Status: Acute (9) Diabetes mellitus Assessment and Plan: * Accuchecks Q6H * HgbA1c 8.4 * Started peg feedings on 08/26/17 * Nepro-->50 ml/hour but this was held 09/13/17 due suspicion of Bowel Obstruction as NO bowel Movement since 09/07/17. This was restarted on after NO obstruction was observed on Obstruction Series 09/13/17 and after multiple bowel movement s/p Fleet Enema 09/13/17 (10) HLD (hyperlipidemia) Assessment and Plan: * 08/27: held Crestor 10 mg PO HS secondary to rise in LFTs * 08/29: Liver function tests improving; waiting to restart statin Status: Chronic (11) Anemia Assessment and Plan: * Heme-oncology (Dr. Giles bender) on board-->help appreciated * Likely iron deficiency anemia based on prior admissions * Ferritin 27.4, Iron 22, TIBC 322, % Saturation 7 * Ferric Sodium Gluconate 125mg IVPB daily (active 08/08-08/16) * Procrit 10,000 units - * Monitor Hgb/Hct: stable Status: Chronic (12) History of DVT (deep vein thrombosis) Assessment and Plan: * Patient was previously on Eliquis for a prior history of DVT. * Repeat dopplers 08/09/17 are negative for DVT * Off Heparin Drip 08/17/17 * Started Eliquis 2.5mg PO BID for atrial flutter and history of DVT Status: Chronic (13) UTI Assessment and Plan: * Infectious disease (Dr. Lawrence) on board-->help appreciated * Exchange jaquez out and repeat urine cultures * Urine Culture 08/12/17 showed Gram Negative Rods: NO identification and NO sensitivities were performed * Meropenem 500mg IV Q 12hours (active since 08/14/17 through 08/18/17) to cover for UTI per ID * Repeat Urine Culture 08/18/17 shows NO growth * 08/25: reculture in light of leukocytosis * 08/27: pending urine studies * 08/30: Urine Culture 08/27/17 showed Yeast Species but no antifungal at that time secondary to recent history of Elevated LFTs * Urine Culture 09/13/17 showed Yeast Species: he is on Diflucan Status: Chronic (14) Confusion; Alzheimer's Dementia Assessment and Plan: * Per daughter, patient has been getting bouts of confusion over the past year but appears at baseline. Patient has not seen formal neurology as outpatient per daughter. Per , prior to event, noted Alzheimers' disease dx one year ago * CT head w/o contrast (08/10/17):acute os subacute lacune infarct is not excluded in the left basal ganglia inferiorly with definitive chronic lacune identified in the right basal ganglia superiorly. No acute or subacute lobar brain infarction is appreciable by standard CT criteria. Mild age-related neuro degenerative changes are identifed. No acute intracranial hemorrhage or mass is identified throughout * 08/26: Off Sedation-->patient moves all extremities randomly but does not follow directions * 08/27: off sedation-->patient is very calm, smiles at his * 08/28: off sedation-->patient is very calm Status: Chronic (15) Unstageable Sacral Ulcer, Left Ear Auricle Ulcer, Right Heal Ulcer Assessment and Plan: * Wound care on board * WOUND CARE NOTE (08/26)-->Pt with a sacral unstageable being treated with medihoney. No changes to dimensions at this time. Also, pt favoring Left side of head and has developed a 1x1 serous filled blister on his left ear. Primary nurse placed duoderm on the ear. Wound care nurse left duoderm in place , and recommends leaving it on until it falls off on its own. Pt has been NPO for several days, new peg inserted yesterday. Will be starting glucerna tube feedings later today. Albumin 3.3 * Turn q 2 hours * medihoney on unstageable ulcer * duoderm on left ear aurical ulcer: this is healed as of 09/15/17 * Prevalon Boots for Right Heal Blister 09/13/17 * 09/02/17: examined with Wound Care Nurse Emeka Samuel and periphery of the Sacral Wound is pink with some bleeding however center is still black and therefore still unstageable. Continue spray with Cavelon followed by thick coating with MediHoney followed by covering with OptiFoam once a day. * 09/03/17: Change of sacral ulcer dressing was performed by me with assitance from Nurse Lyman * 09/04/17: 09/03/17: Change of sacral ulcer dressing was performed by me with assistance from ALEXANDRA Unger * Per wound care note (09/07): sacral ulcer is stable per wound care nurse * 09/14/17: Sacral Ulcer is unstageable and area of blackness fills entire circumference. General Surgery consult placed to see if debridement is necessary. Continue Cavelon [place] followed by paulina thick coating of MediHoney followed by covering with OptiFoam. * 09/15/17: Surgery Team debrided Sacral Ulcer and Bone Scan will need to be followed up which was performed 09/17/17 * 09/18/17: With the help of Nurse Guzman, applied Cavelon [place] followed by thick coating of MediHoney followed by covering with OptiFoam * 09/19/17: Dressing for Sacral Ulcer already changed before my exam. Explained to Nurse Guzman that best application of MediHoney would be to cover the padding of the OptiFoam with it and then apply the OptiFoam to the ulcer. Status: Acute (16) Elevated LFTs Assessment and Plan: * 08/27: Yina * Discussed with cardiology-->changed amiodarone 200mg PO tid to amiodaron 200mg PO daily * D/C tylenol * Held Statin * patient is also on Rocephin to cover for pneumonia * Will not start antifungal * 08/29: starting to down trending since change in amiodarone dose; awaiting to restart statin * 08/30: continues to trend down. Amiodarone was discontinued * 09/01: AST, ALT, Alk Phos still elevated but stable * 09/02: AST, ALT, Alk Phos still elevated but stable * 09/03: LFTs stable * 09/04: LFTs stable Status: Acute (17). Hx Constipation * Monitor bowel movement * Multiple bowel movements on 09/13/17 and 09/14/17 that are well formed s/p Fleet Enema on 09/13/17 * 09/15/17: NO bowel movement * 09/16/17: Soft pasty bowel movement * 09/17/17: Soft pasty bowel movement * 09/18/17: NO bowel movement * 09/19/17: ordered one dose of Lactulose 20 gm via PEG as still no bowel movement (18). Hyponatremia * 09/19/17: at 127 monitor for now (19). Prophylactic measure Assessment and Plan: * Pepcid 20mg PO daily * Start Eliquis 2.5mg PO BID * s/p peg placement 08/25 * s/p trachesostomy 08/22 * s/p Permcath placement 08/22 removal Kurtis catheter * s/p right posterior chest tube 08/19-->removed 08/24 * s/p Right Arm PICC 08/26 * (Jovita Serrano): -->number provided to the nurse- ->consented for peg placement; discussed about LTAC 08/26 * Spoke with Dr. Pickard, PMD regarding patient's hospitalization up until this point 08/2609/01/17: Dr. Cullen Barth spoke with the patient's [place] with the assistance of Nurse Campos on 3 tower (as multiple attempts of using drumbid indicated that all of the [place] translators were busy) and explained all of the patient's diagnosises. 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 Her ultimate wish is to take patient to [facility] where their children live. I explained to patient that I would not know how that would be coordinated but that the Social Workers/Automobile And Property Underwriter at LTAC may be of assistance in this regard. I also informed her that I am not aware of any insurance company that would finance this request. She understands that the patient is awaiting insurance approval for LTAC. 09/01/17 and 09/02/17: Dr. Cullen Barth spoke with Communications Manager Demetria and we are still awaiting insurance authorization for LTAC placement. 09/05/17: Spoke with nehal social media marketing analyst, wean trials sent to LTAC pending approval no word yet regarding approval. Ordered for repeat cultures given uptrend in white count. 09/06/17: pending repeat cultures in light of elevated procalcitonin; ID recommended to reculture. Note: patients PICC lined had clogged ports. Red port remains clogged in spite of cath rafaela. Blue port improved after cath rafaela. Possible may need to remove line to r/o infected line. Strong suspicion due to patient's pneumonia given he has thick secretions. 09/07/17: Infectious disease. pending repeat cultures in light of elevated procalcitonin; Note: patients PICC lined had clogged ports. Red port remains clogged in spite of cath rafaela. Blue port improved after cath rafaela. Hip xray negative for acute fracture. There are no noted falls. 09/08/17: Patient denied for LTAC; awaiting for other options from case management/social work. Resident Eng spoke with Dr. Cortés, patient be transferred under regular bed, when bed is available. Infectious disease on board; Patient started on IV Vancomycin in light of + blood culture. Pending chest xray. 09/09/17: Patient denied for LTAC; awaiting for other options from case management/social work with alisha verdin support. Patient started on IV Vancomycin MWF in light of + blood culture. Pending chest xray. F/U sputum with ID. f/u latest blood cultures. 09/13/17: Rapid response for low blood pressure and elevated WBC likely Septic Shock. Started on Levophed, added Meropenem to Vancomycin and 1 dose of Gentamycin given after speaking with ID. Ordered Obstruction Series as no bowel movement since 09/07/17. F/U Shock Panel. Discussed with ICU Resident to arrange for Change of Right Arm Midline line and Trach Collar. 09/14/17: Will await results of Blood Culture 09/13/17 to determine if the Right Arm Midline, Right Chest Perm Cath, and Trach Collar needs to be changed. Spoke with Communications Manager Demetria in ICU and patient information has been sent to [facility] (they accept patients on Trach) and she is awaiting to hear back from them before submitting approval request to insurance [employer]. 09/15/17: Passy [place] Trach placed by Bender Machine Operator. Surgical Team for debridement of Sacral Ulcer. Spoke with patient's ([place] Denisa [id number]) and explained/updated her on patient condition and obtained consent for sacral ulcer debridement. 09/16/17: Still awaiting performance of Sacral Bone Scan 09/17/17: Bone Scan performed and awaiting results 09/18/17: Awaiting Bone Scan Report 09/19/17: Still awaiting Bone Scan Report. Spoke again with Communications Manager Demetria and NO word yet from Nursing [facility] or [place] (they do treat patients with Trachs). 09/20/17: Repeat Wound culture and urine culture sent. Dressing changed with medihoney and optifoam. No other changes at this time. Still waiting for approval for [facility] 09/21/17: No changes at this time. Will continue to change wound dressing Q3D and follow up with case management for for [facility]iary transfer. 09/22/17: Dressing changed today with medihoney. Healing appropriately. Talked to case management. Still no update from intermediate transfer. Bone scan negative for osteo. Repeat wound cultures continue to grow Enterococcus. Will follow up sensitivities 09/26/17: Dialysis today. Dressing changed with optifoam and medihoney (nickel thick). VRE/germania in wound. Talked to case management. No updates at this time 09/27/17: dressing changed today with optifoam and medihoney (Nickel thick). Case management says no new information from [facility]. Will update as new information becomes available. 09/28/17: dressing changed today with optifoam and medihoney (Nickel thick). Case management says no new information from [facility]. Will update as new information becomes available. 3x3cm unstageable ulcer on R. heel present. Will talk to surgery for possible bedside debridment. 09/29/17:Talked to case management again today. No new information. Patient is tachycardiac and having blood tinged sputum in his trach collar. Will order a chest xray. 09/30/17: Talked to case management again today. No new information. went for dialysis yesterday due to excess fluid. Changed dressing at bedside today. <Cullen Barth - Last Filed: 10/01/17 19:59> Objective - Vital Signs/Intake and Output Vital Signs (last 24 hours): Temp Pulse Resp BP Pulse Ox 98.4 F 88 20 114/63 98 10/01/17 16:54 10/01/17 16:54 10/01/17 16:54 10/01/17 16:54 10/01/17 16:54 Intake and Output: 10/01/17 10/02/17 18:59 05:59 Intake Total 580 Balance 580 - Medications Medications: Current Medications Acetylcysteine (Acetylcysteine 20%) 4 ml INH RQ6 [facility] Last Admin: 10/01/17 13:20 Dose: 4 ml Albuterol/Ipratropium (Duoneb 3 Mg/0.5 Mg (3 Ml) Ud) 3 ml INH RQ6 [facility] Last Admin: 10/01/17 13:19 Dose: 3 ml Apixaban (Eliquis) 2.5 mg PO BID [facility] Last Admin: 10/01/17 18:20 Dose: 2.5 mg Aspirin (Aspirin Chewable) 81 mg PO DAILY [facility] Last Admin: 10/01/17 10:39 Dose: 81 mg Calcium Acetate (Phoslo) 1,334 mg GT TID [facility] Last Admin: 10/01/17 18:19 Dose: 1,334 mg Famotidine (Pepcid) 20 mg PO DAILY [facility] Last Admin: 10/01/17 10:39 Dose: 20 mg Ferric Sodium Gluconate Complex (Ferrlecit) 125 mg IVPB DAILY@1600 [facility] Stop: 10/07/17 16:01 Last Admin: 10/01/17 16:32 Dose: 125 mg Fluconazole (Diflucan) 100 mg PO DAILY [facility] Last Admin: 10/01/17 10:39 Dose: 100 mg Heparin Sodium (Porcine) (Heparin) 3,700 units IVP MWF [facility] Last Admin: 09/30/17 15:59 Dose: 3,700 units Tigecycline 50 mg/ Dextrose 100 mls @ 100 mls/hr IVPB Q12H [facility] Last Admin: 10/01/17 18:26 Dose: 100 mls/hr Insulin Aspart (Novolog) 0 unit SC Q6 [facility] PRN Reason: Protocol Last Admin: 10/01/17 18:20 Dose: 2 unit Metoprolol Tartrate (Lopressor) 50 mg PO BID [facility] Last Admin: 10/01/17 18:20 Dose: 50 mg Rosuvastatin Calcium (Crestor) 10 mg PO HS [facility] Last Admin: 08/26/17 22:41 Dose: 10 mg Saccharomyces Boulardii (Florastor) 250 mg PO BID [facility] Last Admin: 10/01/17 18:19 Dose: 250 mg - Labs Labs: 10/01/17 07:46 10/01/17 07:46 PT 13.9 SECONDS (9.7-12.2) H 08/24/17 06:08 INR 1.2 08/24/17 06:08 APTT 55 SECONDS (21-34) H D 08/17/17 06:12 Attending/Attestation - Attestation I have personally seen and examined this patient.: Yes I have fully participated in the care of the patient.: Yes I have reviewed all pertinent clinical information, including history, physical exam and plan: Yes Notes (Text): 10/01/17 19:51 Patient was seen and examined at 3:00 PM with Nurse Allison who helped me to change Sacral Wound Dressing. ROS not possible as patient is awake but not responding to questioning nor is he following commands today. Patient did have bowel movement at the time of my exam/changing of his Sacral Wound Dressing and it was nonbloody and pasty. Alson on Exam: HEENT: NCA, Pupils are round and reactive to light. EOM could not be tested today nor the pharynx visualized as he did not follow instructions today, NO cervical lymphadenopathy Cardio: NS1 and NS2, NO M/R/G Resp: faintly course breath sounds noted throughout GI: BSx4, Soft, NT (he did not grimace upon palpation), NO guarding Ext: NO edema, Pulses are strong and equal, Capillary Refill is 2 seconds Neuro: not possible today Skin: 9 x 11 cm sacral wound with leathery skin filling in the ulcer with healthy surrounding tissue, Right Heal 3 x 2 cm eschar Also note: Patient required extra HD 09/29/17 due to increased Pulmonary Congestion on Chest X Ray that was done 09/29/17 due to blood tinged suctioning from Trach. ASA and Eliquis were held 09/29/17 but then restarted 09/30/17 as HgB/Hct remained stable. Will get repeat CXR 10/02/17 morning. 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 Repeat Urine Culture 09/20/17 showed Yeast: Diflucan 100 mg PO 1x/day Disposition: Communications Manager Tiffanie informed me 09/29/17 that we were now awaiting to hear back from Piedad barrientos [place] for ALISHA. Cullen Barth D.O.
[2017-10-01] MEDS: Tigecycline 50 MG in Dextrose 5% In Water 100 ML IVPB SCH ×2 (07:39→18:26)
[2017-10-01 08:05] LABS: BASO # 0.2 K/uL (0.0-0.2); EOS # 0.2 K/uL (0.0-0.7); EOS % 1.2 % (0.0-4.0); HEMATOCRIT 31.4 % (35.0-51.0); LYMPH # 2.6 K/uL (1.0-4.3); LYMPH % 16.7 % (20.0-40.0); MEAN CELL VOLUME 80.2 fL (80.0-94.0); MEAN CORPUSCULAR HEMOGLOBIN 24.7 pg (27.0-31.0); MEAN CORPUSCULAR HGB CONC 30.7 g/dL (33.0-37.0); MEAN PLATELET VOLUME 8.2 fL (7.2-11.7); MONO # 0.9 K/uL (0.0-0.8); RED CELL DISTRIBUTION WIDTH 24.5 % (11.5-14.5); WHITE BLOOD COUNT 15.3 K/uL (4.8-10.8)
[2017-10-01 08:31] LABS: POTASSIUM 3.7 mmol/L (3.6-5.2)
[2017-10-01 08:33] LABS: BILIRUBIN,TOTAL 0.4 mg/dL (0.2-1.3)
[2017-10-01 08:34] LABS: ALB/GLOB RATIO 0.6 (1.0-2.1); CALCIUM 9.8 mg/dl (8.6-10.4); PHOSPHOROUS 3.5 mg/dL (2.5-4.5); TOTAL PROTEIN 7.7 g/dL (6.3-8.3)
[2017-10-01 08:35] LABS: MAGNESIUM 2.2 mg/dL (1.6-2.3)
--- NOTE | 2017-10-01 10:01 | CP.PCM.PN ---
Subjective - Date & Time of Evaluation Date of Evaluation: 10/01/17 Time of Evaluation: 10:00 - Subjective Subjective: Stable dialysis 09/30- UF 1400ml Appears same on trach collar tolerating PEG feeds well Objective - Vital Signs/Intake and Output Vital Signs (last 24 hours): Temp Pulse Resp BP Pulse Ox 97.8 F 101 H 20 123/68 100 10/01/17 07:21 10/01/17 07:21 10/01/17 07:21 10/01/17 07:21 10/01/17 07:21 Intake and Output: 10/01/17 10/01/17 06:59 18:59 Intake Total 500 Balance 500 - Medications Medications: Current Medications Acetylcysteine (Acetylcysteine 20%) 4 ml INH RQ6 [facility] Last Admin: 10/01/17 07:45 Dose: 4 ml Albuterol/Ipratropium (Duoneb 3 Mg/0.5 Mg (3 Ml) Ud) 3 ml INH RQ6 [facility] Last Admin: 10/01/17 07:45 Dose: 3 ml Apixaban (Eliquis) 2.5 mg PO BID [facility] Last Admin: 09/30/17 18:43 Dose: 2.5 mg Aspirin (Aspirin Chewable) 81 mg PO DAILY [facility] Last Admin: 09/30/17 10:33 Dose: 81 mg Calcium Acetate (Phoslo) 1,334 mg GT TID [facility] Last Admin: 09/30/17 18:43 Dose: 1,334 mg Famotidine (Pepcid) 20 mg PO DAILY [facility] Last Admin: 09/30/17 10:34 Dose: 20 mg Ferric Sodium Gluconate Complex (Ferrlecit) 125 mg IVPB DAILY@1600 [facility] Stop: 10/07/17 16:01 Last Admin: 09/30/17 15:13 Dose: 125 mg Fluconazole (Diflucan) 100 mg PO DAILY [facility] Last Admin: 09/30/17 10:34 Dose: 100 mg Heparin Sodium (Porcine) (Heparin) 3,700 units IVP MWF [facility] Last Admin: 09/30/17 15:59 Dose: 3,700 units Tigecycline 50 mg/ Dextrose 100 mls @ 100 mls/hr IVPB Q12H [facility] Last Admin: 10/01/17 07:39 Dose: 100 mls/hr Insulin Aspart (Novolog) 0 unit SC Q6 [facility] PRN Reason: Protocol Last Admin: 10/01/17 06:31 Dose: 3 unit Metoprolol Tartrate (Lopressor) 50 mg PO BID [facility] Last Admin: 09/30/17 18:21 Dose: Not Given Rosuvastatin Calcium (Crestor) 10 mg PO HS [facility] Last Admin: 08/26/17 22:41 Dose: 10 mg Saccharomyces Boulardii (Florastor) 250 mg PO BID [facility] Last Admin: 09/30/17 18:43 Dose: 250 mg - Labs Labs: 10/01/17 07:46 10/01/17 07:46 PT 13.9 SECONDS (9.7-12.2) H 08/24/17 06:08 INR 1.2 08/24/17 06:08 APTT 55 SECONDS (21-34) H D 08/17/17 06:12 - Constitutional Appears: No Acute Distress, Chronically Ill - Head Exam Head Exam: ATRAUMATIC, NORMAL INSPECTION - Eye Exam Eye Exam: EOMI, Normal appearance - Neck Exam Neck Exam: Normal Inspection. absent: Tenderness - Respiratory Exam Respiratory Exam: Clear to Ausculation Bilateral, NORMAL BREATHING PATTERN - Cardiovascular Exam Cardiovascular Exam: REGULAR RHYTHM, +S1 - GI/Abdominal Exam GI & Abdominal Exam: Soft. absent: Tenderness - Extremities Exam Extremities Exam: Normal Inspection. absent: Tenderness - Neurological Exam Neurological Exam: Altered, Motor Sensory Deficit - Skin Skin Exam: Dry, Warm Assessment and Plan (1) Acute on chronic renal failure Status: Resolved (2) CAD (coronary artery disease) Status: Chronic (3) CHF exacerbation Status: Chronic (4) Type 2 diabetes mellitus with diabetic nephropathy Status: Acute (5) Cardiorenal disease Status: Acute (6) ESRD (end stage renal disease) Status: Acute - Assessment and Plan (Free Text) Plan: Same dialysis MWF monitor [email or web address]
[2017-10-01] MEDS: Saccharomyces Boulardi 250 mg Cap PO SCH ×2 (10:39→18:19)
[2017-10-01] MEDS: Ferric Sodium Gluconat Complex 62.5 mg/5 ml Vial IVPB SCH (16:32)
--- NOTE | 2017-10-01 19:36 | CP.PCM.PN ---
Subjective - Date & Time of Evaluation Date of Evaluation: 10/01/17 Time of Evaluation: 17:00 - Subjective Subjective: the patient seen and examined Response by opening eyes Status post tracheostomy on trach collar Sounds congested Afebrile On dialysis Continue antibiotics Followup chest x-ray Objective - Vital Signs/Intake and Output Vital Signs (last 24 hours): Temp Pulse Resp BP Pulse Ox 98.4 F 88 20 114/63 98 10/01/17 16:54 10/01/17 16:54 10/01/17 16:54 10/01/17 16:54 10/01/17 16:54 Intake and Output: 10/01/17 10/02/17 18:59 05:59 Intake Total 580 Balance 580 - Medications Medications: Current Medications Acetylcysteine (Acetylcysteine 20%) 4 ml INH RQ6 [facility] Last Admin: 10/01/17 13:20 Dose: 4 ml Albuterol/Ipratropium (Duoneb 3 Mg/0.5 Mg (3 Ml) Ud) 3 ml INH RQ6 [facility] Last Admin: 10/01/17 13:19 Dose: 3 ml Apixaban (Eliquis) 2.5 mg PO BID [facility] Last Admin: 10/01/17 18:20 Dose: 2.5 mg Aspirin (Aspirin Chewable) 81 mg PO DAILY [facility] Last Admin: 10/01/17 10:39 Dose: 81 mg Calcium Acetate (Phoslo) 1,334 mg GT TID [facility] Last Admin: 10/01/17 18:19 Dose: 1,334 mg Famotidine (Pepcid) 20 mg PO DAILY [facility] Last Admin: 10/01/17 10:39 Dose: 20 mg Ferric Sodium Gluconate Complex (Ferrlecit) 125 mg IVPB DAILY@1600 [facility] Stop: 10/07/17 16:01 Last Admin: 10/01/17 16:32 Dose: 125 mg Fluconazole (Diflucan) 100 mg PO DAILY [facility] Last Admin: 10/01/17 10:39 Dose: 100 mg Heparin Sodium (Porcine) (Heparin) 3,700 units IVP MWF [facility] Last Admin: 09/30/17 15:59 Dose: 3,700 units Tigecycline 50 mg/ Dextrose 100 mls @ 100 mls/hr IVPB Q12H [facility] Last Admin: 10/01/17 18:26 Dose: 100 mls/hr Insulin Aspart (Novolog) 0 unit SC Q6 [facility] PRN Reason: Protocol Last Admin: 10/01/17 18:20 Dose: 2 unit Metoprolol Tartrate (Lopressor) 50 mg PO BID [facility] Last Admin: 10/01/17 18:20 Dose: 50 mg Rosuvastatin Calcium (Crestor) 10 mg PO HS [facility] Last Admin: 08/26/17 22:41 Dose: 10 mg Saccharomyces Boulardii (Florastor) 250 mg PO BID [facility] Last Admin: 10/01/17 18:19 Dose: 250 mg - Labs Labs: 10/01/17 07:46 10/01/17 07:46 PT 13.9 SECONDS (9.7-12.2) H 08/24/17 06:08 INR 1.2 08/24/17 06:08 APTT 55 SECONDS (21-34) H D 08/17/17 06:12 - Head Exam Head Exam: ATRAUMATIC, NORMOCEPHALIC - Neck Exam Neck Exam: Normal Inspection - Respiratory Exam Respiratory Exam: Rales - Cardiovascular Exam Cardiovascular Exam: REGULAR RHYTHM - GI/Abdominal Exam GI & Abdominal Exam: Soft, Normal Bowel Sounds - Neurological Exam Neurological Exam: Awake Assessment and Plan (1) Cardiac arrest Status: Acute (2) Pneumonia Status: Acute (3) History of DVT (deep vein thrombosis) Status: Acute (4) CKD (chronic kidney disease) Status: Chronic (5) Acute on chronic renal failure Status: Resolved (6) CHF (congestive heart failure) Status: Acute
--- NOTE | 2017-10-01 23:31 | CP.PCM.PN ---
Subjective - Date & Time of Evaluation Date of Evaluation: 10/01/17 Time of Evaluation: 15:50 - Subjective Subjective: Patient with no cardiac events Physical Examination - Constitutional Appears: Chronically Ill - Head Exam Head Exam: ATRAUMATIC, NORMAL INSPECTION, NORMOCEPHALIC - Eye Exam Eye Exam: EOMI Pupil Exam: NORMAL ACCOMODATION - ENT Exam ENT Exam: Mucous Membranes Moist - Neck Exam Additional comments: trach - Respiratory Exam Respiratory Exam: Clear to Ausculation Bilateral, NORMAL BREATHING PATTERN - Cardiovascular Exam Cardiovascular Exam: REGULAR RHYTHM - GI/Abdominal Exam GI & Abdominal Exam: Soft, Normal Bowel Sounds. absent: Distended, Tenderness - Extremities Exam Extremities Exam: absent: Joint Swelling, Tenderness - Back Exam Additional comments: 10x10 unstageable ulcer with healthy granulation tissue. No necrotic tissue. optifoam dressing with medihoney. Clear dry and intact - Neurological Exam Neurological Exam: Alert, Awake - Psychiatric Exam Psychiatric exam: Normal Affect, Normal Mood - Skin Skin Exam: Dry, Intact, Normal Color, Warm Objective - Vital Signs/Intake and Output Vital Signs (last 24 hours): Temp Pulse Resp BP Pulse Ox 98.4 F 88 20 114/63 98 10/01/17 16:54 10/01/17 16:54 10/01/17 16:54 10/01/17 16:54 10/01/17 16:54 Intake and Output: 10/01/17 10/02/17 18:59 05:59 Intake Total 580 Balance 580 - Medications Medications: Current Medications Acetylcysteine (Acetylcysteine 20%) 4 ml INH RQ6 [facility] Last Admin: 10/01/17 20:09 Dose: 4 ml Albuterol/Ipratropium (Duoneb 3 Mg/0.5 Mg (3 Ml) Ud) 3 ml INH RQ6 [facility] Last Admin: 10/01/17 20:09 Dose: 3 ml Apixaban (Eliquis) 2.5 mg PO BID [facility] Last Admin: 10/01/17 18:20 Dose: 2.5 mg Aspirin (Aspirin Chewable) 81 mg PO DAILY [facility] Last Admin: 10/01/17 10:39 Dose: 81 mg Calcium Acetate (Phoslo) 1,334 mg GT TID [facility] Last Admin: 10/01/17 18:19 Dose: 1,334 mg Famotidine (Pepcid) 20 mg PO DAILY [facility] Last Admin: 10/01/17 10:39 Dose: 20 mg Ferric Sodium Gluconate Complex (Ferrlecit) 125 mg IVPB DAILY@1600 [facility] Stop: 10/07/17 16:01 Last Admin: 10/01/17 16:32 Dose: 125 mg Fluconazole (Diflucan) 100 mg PO DAILY [facility] Last Admin: 10/01/17 10:39 Dose: 100 mg Heparin Sodium (Porcine) (Heparin) 3,700 units IVP MWF [facility] Last Admin: 09/30/17 15:59 Dose: 3,700 units Tigecycline 50 mg/ Dextrose 100 mls @ 100 mls/hr IVPB Q12H [facility] Last Admin: 10/01/17 18:26 Dose: 100 mls/hr Insulin Aspart (Novolog) 0 unit SC Q6 [facility] PRN Reason: Protocol Last Admin: 10/01/17 18:20 Dose: 2 unit Metoprolol Tartrate (Lopressor) 50 mg PO BID [facility] Last Admin: 10/01/17 18:20 Dose: 50 mg Rosuvastatin Calcium (Crestor) 10 mg PO HS [facility] Last Admin: 08/26/17 22:41 Dose: 10 mg Saccharomyces Boulardii (Florastor) 250 mg PO BID [facility] Last Admin: 10/01/17 18:19 Dose: 250 mg - Labs Labs: 10/01/17 07:46 10/01/17 07:46 PT 13.9 SECONDS (9.7-12.2) H 08/24/17 06:08 INR 1.2 08/24/17 06:08 APTT 55 SECONDS (21-34) H D 08/17/17 06:12 Assessment and Plan - Assessment and Plan (Free Text) Assessment: Assessment and Plan - Assessment and Plan (Free Text) Assessment: Atrial Fibrillation Intermittent Rate controlled. On Metoprolol 50 mg PO BID, Eliquis 2.5 mg PO BID CAD, chest pain -No current plans for cardiac cath (acute respiratory failure and elevated Cr) , history of abnormal stress test -Elevated Troponin likely due to chest compressions during cardiac arrest 08/10 -No acute ST changes on EKG -Continue ASA, Crestor, Metoprolol. -Echocardiogram from 08/08/17 showed left ventricle systolic function is severely impaired. EF: 25-30%; global hypokinesis of LV mild AR. MR is moderate. Moderate-severe pulmonary hypertension Systolic CHF exacerbation -CXR 09/09: Diminished bilateral basilar airspace disease; stable cardiomegaly -BNP [id number] on 08/06/17 -Continue ASA, Crestor, Metoprolol -Echocardiogram from 08/08/17 showed left ventricle systolic function is severely impaired. EF: 25-30%; global hypokinesis of LV mild AR. MR is moderate. Moderate-severe pulmonary hypertesnion Dobutamine discontinued in light of atrial flutter-type episodes Diabetes Mellitus ISS Continue to monitor ESRD on HD Currently on HD On Procrit and Phoslo Nephro on the case Prophylaxis Pepcid 20 mg PO daily Eliquis 2.5 mg PO BID (Renal precautions) Disposition Awaiting Transfer to LT[facility]
[2017-10-02] MEDS: (Novolog) Insulin Aspart, Recombinant 100 u/ml 10 ml vial SC SCH ×4 (00:06→18:59)
[2017-10-02] MEDS: Acetylcysteine 20% Inhal Soln (4ml) INH SCH ×4 (01:25→19:49)
[2017-10-02] MEDS: Albuterol-Ipratrop 3 mg / 0.5 (3 ml) UD INH SCH ×4 (01:25→19:49)
--- NOTE | 2017-10-02 02:10 | CP.PCM.PN ---
<Uzma Alcantar - Last Filed: 10/02/17 02:14> Subjective - Date & Time of Evaluation Date of Evaluation: 10/02/17 Time of Evaluation: 02:07 - Subjective Subjective: Medicine Progress Note for Dr. Barth Patient seen and examined at bedside. No acute events overnight per nursing. Awake and alert. ROS unattainable. Objective - Vital Signs/Intake and Output Vital Signs (last 24 hours): Temp Pulse Resp BP Pulse Ox 98.3 F 93 H 20 128/62 98 10/01/17 23:28 10/02/17 01:00 EST 10/01/17 23:28 10/01/17 23:28 10/01/17 23 :28 Intake and Output: 10/01/17 10/02/17 18:59 05:59 Intake Total 580 Balance 580 - Medications Medications: Current Medications Acetylcysteine (Acetylcysteine 20%) 4 ml INH RQ6 [facility] Last Admin: 10/02/17 01:25 EST Dose: 4 ml Albuterol/Ipratropium (Duoneb 3 Mg/0.5 Mg (3 Ml) Ud) 3 ml INH RQ6 [facility] Last Admin: 10/02/17 01:25 EST Dose: 3 ml Apixaban (Eliquis) 2.5 mg PO BID [facility] Last Admin: 10/01/17 18:20 Dose: 2.5 mg Aspirin (Aspirin Chewable) 81 mg PO DAILY [facility] Last Admin: 10/01/17 10:39 Dose: 81 mg Calcium Acetate (Phoslo) 1,334 mg GT TID [facility] Last Admin: 10/01/17 18:19 Dose: 1,334 mg Famotidine (Pepcid) 20 mg PO DAILY [facility] Last Admin: 10/01/17 10:39 Dose: 20 mg Ferric Sodium Gluconate Complex (Ferrlecit) 125 mg IVPB DAILY@1600 [facility] Stop: 10/07/17 16:01 Last Admin: 10/01/17 16:32 Dose: 125 mg Fluconazole (Diflucan) 100 mg PO DAILY [facility] Last Admin: 10/01/17 10:39 Dose: 100 mg Heparin Sodium (Porcine) (Heparin) 3,700 units IVP MWF [facility] Last Admin: 09/30/17 15:59 Dose: 3,700 units Tigecycline 50 mg/ Dextrose 100 mls @ 100 mls/hr IVPB Q12H [facility] Last Admin: 10/01/17 18:26 Dose: 100 mls/hr Insulin Aspart (Novolog) 0 unit SC Q6 [facility] PRN Reason: Protocol Last Admin: 10/02/17 00:06 Dose: Not Given Metoprolol Tartrate (Lopressor) 50 mg PO BID [facility] Last Admin: 10/01/17 18:20 Dose: 50 mg Rosuvastatin Calcium (Crestor) 10 mg PO HS [facility] Last Admin: 08/26/17 22:41 Dose: 10 mg Saccharomyces Boulardii (Florastor) 250 mg PO BID [facility] Last Admin: 10/01/17 18:19 Dose: 250 mg - Labs Labs: 10/01/17 07:46 10/01/17 07:46 PT 13.9 SECONDS (9.7-12.2) H 08/24/17 06:08 INR 1.2 08/24/17 06:08 APTT 55 SECONDS (21-34) H D 08/17/17 06:12 - Additional Findings Additional findings: - Constitutional Appears: Chronically Ill - Head Exam Head Exam: ATRAUMATIC, NORMAL INSPECTION, NORMOCEPHALIC - Eye Exam Eye Exam: EOMI Pupil Exam: NORMAL ACCOMODATION - ENT Exam ENT Exam: Mucous Membranes Moist - Neck Exam Additional comments: trach, blood in trach collar - Respiratory Exam Respiratory Exam: Clear to Ausculation Bilateral, NORMAL BREATHING PATTERN - Cardiovascular Exam Cardiovascular Exam: REGULAR RHYTHM, tachycardic - GI/Abdominal Exam GI & Abdominal Exam: Soft, Normal Bowel Sounds. absent: Distended, Tenderness - Extremities Exam Extremities Exam: absent: Joint Swelling, Tenderness - Back Exam Additional comments: 10x10 unstageable ulcer with healthy granulation tissue. No necrotic tissue. optifoam dressing with medihoney. Clear dry and intact - Neurological Exam Neurological Exam: Alert, Awake - Psychiatric Exam Psychiatric exam: Normal Affect, Normal Mood - Skin Skin Exam: Dry, Intact, Normal Color, Warm Additional comments: Bruising on b/l hips; eschar on the base of the anterior right thumb Assessment and Plan - Assessment and Plan (Free Text) Plan: (1) Acute Respiratory Failure ARDS Cardiac Arrest Pulmonary Edema Nonstemi Assessment and Plan: * Code Blue on 08/10: asystole, cardiopulmonary resuscitative measures initiated , requiring 3 epis, bicarbonate, ROSC achieved and intubated and brought to the ICU for further management; Patient in the ICU from 08/10 until present. * Pulmonary: Dr Mena (Dr. Jeffers covering until 09/04/17)-->help appreciated * Cardiology: Dr. Cortés on board-->help appreciated * GI (Dr. Wills) on board-->help appreciated * S/P Tracheostomy 08/22 * S/P Peg tube placement 08/25 * s/p insertion of right posterior chest tube 08/19-->removed 08/24/17 * There was consideration for possible thoracentesis of left side pleural effusion, evaluated by IR, there is no fluid to drain per Dr. Gross * Chest xray (08/26): right arm PICC is seen with the tip of distal subclavian vein. PICC may be used * Per cardiology, * Restart Aspirin 81mg PO daily * Patient does not need Plavix at this time * Recommend for Eliquis 2.5mg PO BID for atrial flutter * 08/27: patient is pending LTAC, he went eventually need cardiac catheterization when he has stabilized. Held statin secondary to elevated LFTs. Discussed with Dr. Cortés, lowered Amiodarone 200mg PO daily * 08/28: patient is pending LTAC, he went eventually need cardiac catheterization when he has stabilized. Liver function tests improving * 08/29: Wigs Salesperson Nehal has sent request to insurance for authorization for LTAC-->pending * 09/06: pending social work/case management approval for LTAC * 09/07: pending social work/case management approval for LTAC * 09/08: Unable to get approval for LTAC; pending other options * 09/09: Transferred from step-down ICU to the floors * 09/13: Trasnferred back to ICU S/P Rapid Response for low blood pressure * 09/14: Currently on Acetylcysteine 20 % Neb Q6H and Duoneb Q6H * 09/15: [place] Trach placed by Cornice Maker (2) Abnormal Stress Test History of AICD History of Coronary Artery Disease Assessment and Plan: * Cardiology (Dr. Cortés) on board-->help appreciated * TSH: 1.16; T4: 1.53 * Echocardiogram (08/08/17): left ventricle systolic function is severely impaired. EF: 25-30%; global hypokinesis of left ventricle mild aortic regurgitation. Mitral regurgitation is moderate. Moderate-severe pulmonary hypertension * Plan was for cardiac catheterization; delayed due to acute renal failure; Attempted gentle hydration and mucomyst on 08/09 to optimize prior to cath * On 08/10, patient was in asystole, ACLS protocol, ROSC achieved, intubated and transfered to the ICU. Patient in acute pulmonary edema. * Patient hospitalized in the ICU since 08/10/17 to present. * Medications: * Aspirin 81mg PO daily * Plavix d/c by cardiology * Lopressor 50mg PO bid * d/c Crestor 10mg POqHS secondary to rise in LFTS 08/27--->monitor LFTs daily * ARB d/c secondary to acute renal failure * 08/27: patient is pending LTAC, he went eventually need cardiac catheterization when he has stabilized. Held statin secondary to elevated LFTs. Discussed with Dr. Cortés, lowered Amiodarone 200mg PO daily * 08/28: He will eventually need cardiac catheterization when he has stabilized. Liver function tests improving. Statin is on hold (3) Atrial flutter Assessment and Plan: * Cardiology (Dr. Cortés) on board-->help appreciated * Refractory to Lopressor/Cardizem IVP * Eliquis 2.5mg PO bid * Amiodarone bolus-->Amiodarine drip on 08/24-->converted to Amiodarone 200mg PO TID on 08/26 and this was decreased to 200 mg 1x/day due to increased LFTs * 08/27: Discussed with Dr. Cortés, will lower Amiodarone 200mg PO daily and monitor LFTs. Statin held and tylenol d/c * 08/29: patient is pending LTAC, he will eventually need cardiac catheterization when he has stabilized. Liver function tests improving. Statin is on hold due to the elevated LFTs * 08/30: Cardiology discontinued the Amiodarone * 09/07: Held eliquis; will need to resume * 09/09: Eliquis resumed, off Amiodarone Status: Acute (4) Acute on Chronic Systolic CHF exacerbation Assessment and Plan: * Cardiology (Dr. Cortés) on board-->help appreciated * Transferred to the ICU on 08/10 following cardiac arrest and intubation. * Echocardiogram (08/08/17): left ventricular systolic function is severely impaired. EF: 25-30%; global hypokinesis of left ventricle mild aortic regurgitation. Mitral regurgitation is moderate. Moderate-severe pulmonary hypertension * Medications: * Aspirin 81mg PO daily * Plavix d/c by cardiology * Lopressor 50mg PO bid * d/c Crestor 10mg POqHS on 08/27 secondary to rise in LFTs * ARB d/c secondary to acute renal failure Status: Acute (5) Leukocytosis Assessment and Plan: * Patient's white count downtrending * Pleural Fluid 08/19/17 did not show any growth * Blood cultures (08/26): no growth X5 days * UA and urine culture (08/27): Urine Culture showed Yeast Species. * Patient has elevated LFTs-->did not start anti-fungal in light of LFTs New: * 09/05/17 Blood: gram positive cocci-->pending speciation * 09/05/17 Blood: no growth after 4 days * 09/07/17 Legionella Culture: negative * 09/07/17 Mycobacteria: negative * 09/07/17 Sputum: Enterocloace Bacter; yeast * 09/07/17 Blood: negative X 48 hours * 09/07/17 Blood: negative X 48 hours * 09/06: stool culture pending; has not had diarrhea or bowel movement * 09/07: Dr. Zimmer (covering Dr. Lawrence) to see the patient given elevated procalcitonin * Blood Culture 09/13/17 is negative to date and Urine Culture 09/13/17 showed Yeast Species * 09/14: Could this be secondary to the Septic Shock? Secondary to Osteomyelitis of the Sacrum? 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) and Meropenem 500 mg IV Q8H (09/13/17 through 09/16/17), Diflucan 200 mg PO 1x/day (09/13/17), Bactrim 10 mL PO Q12H (09/12/17 through 09/16/17), Tigecycline 50 mg IV Q12H (09/16/17 started because of VRE on Sacrum Wound Culture 09/14/17) * ESR 09/14/17 elevated at 89 * Bone Scan performed 09/17/17 to check for Osteomyelitis at the Sacrum: results are pending * Meropenem 500 mg IV Q12H (09/13/17 through 09/16/17: which will cover the Enterbacter in the Sputum 09/07/17 and the possibility of Sacral Osteomyelitis) * Antibiotics as of 09/17/17:Tigecycline (09/16/17: which will cover the VRE in Sacral Wound Culture 09/14/17 and the possibility of Sacral Osteomyelitis) and Diflucan 200 mg PO 1x/day (09/13/17: which will cover with Yeast in the Sputum, Urine, and Sacral Wound Culture) Status: Acute (6) Pneumonia Assessment and Plan: * Pulmonary (Dr. Mena) on board-->help appreciated; Dr. Jeffers covering while Dr. Mena away * Infectious Disease (Dr. Lawrence)-->help appreciated * Chest xray (08/26): right arm PICC is seen with the tip of distal subclavian vein. PICC may be used * Rapid A strep, Influenza A and B studies, Urine Legionella, Mycoplasma studies = Negative * Florastor 250mg PO bid * 08/07/17: +Strep Pneumoniae in the urine * Meropenem 500mg IV Q 8 hours (08/14/17 through 08/18/17) and Zosyn 2.25 mg IV Q6H (08/13/17 through 08/18/17) * Cefepime 1 gm IV Q24H: started on 08/19/17 and was discontinued by ID Dr. Lawrence on 08/30/17: monitor vitals and labs * s/p right posterior chest tube 08/19-08/24 * Sputum Culture 08/19/17 shows No growth * Pleural fluid 08/19/17: No growth * 09/07/17 Sputum: Enterocloace Bacter and Yeast Species: See Antibiotic treatment in previous Assessment and Plan * Sputum 09/10/17 shows NO AFB Status: Acute (7) HTN (hypertension) Assessment and Plan: * Lopressor 50mg PO bid * Lisinopril 5mg PO daily Status: Chronic (8) CKD (chronic kidney disease) on Dialysis Assessment and Plan: * Dr. Miranda (nephrology) consulted on the case * Hx of CKD-->Started on dialysis 08/15/17 * Kurtis catheter placed and removed 08/22 * s/p Right Chest Permcath 08/22 * Patient is on dialysis -; oliguric * Phoslo 1334mg GT TID * Epoetin 10,000 unit IV MWF Status: Acute (9) Diabetes mellitus Assessment and Plan: * Accuchecks Q6H * HgbA1c 8.4 * Started peg feedings on 08/26/17 * Nepro-->50 ml/hour but this was held 09/13/17 due suspicion of Bowel Obstruction as NO bowel Movement since 09/07/17. This was restarted on after NO obstruction was observed on Obstruction Series 09/13/17 and after multiple bowel movement s/p Fleet Enema 09/13/17 (10) HLD (hyperlipidemia) Assessment and Plan: * 08/27: held Crestor 10 mg PO HS secondary to rise in LFTs * 08/29: Liver function tests improving; waiting to restart statin Status: Chronic (11) Anemia Assessment and Plan: * Heme-oncology (Dr. Giles bender) on board-->help appreciated * Likely iron deficiency anemia based on prior admissions * Ferritin 27.4, Iron 22, TIBC 322, % Saturation 7 * Ferric Sodium Gluconate 125mg IVPB daily (active 08/08-08/16) * Procrit 10,000 units - * Monitor Hgb/Hct: stable Status: Chronic (12) History of DVT (deep vein thrombosis) Assessment and Plan: * Patient was previously on Eliquis for a prior history of DVT. * Repeat dopplers 08/09/17 are negative for DVT * Off Heparin Drip 08/17/17 * Started Eliquis 2.5mg PO BID for atrial flutter and history of DVT Status: Chronic (13) UTI Assessment and Plan: * Infectious disease (Dr. Lawrence) on board-->help appreciated * Exchange jaquez out and repeat urine cultures * Urine Culture 08/12/17 showed Gram Negative Rods: NO identification and NO sensitivities were performed * Meropenem 500mg IV Q 12hours (active since 08/14/17 through 08/18/17) to cover for UTI per ID * Repeat Urine Culture 08/18/17 shows NO growth * 08/25: reculture in light of leukocytosis * 08/27: pending urine studies * 08/30: Urine Culture 08/27/17 showed Yeast Species but no antifungal at that time secondary to recent history of Elevated LFTs * Urine Culture 09/13/17 showed Yeast Species: he is on Diflucan Status: Chronic (14) Confusion; Alzheimer's Dementia Assessment and Plan: * Per daughter, patient has been getting bouts of confusion over the past year but appears at baseline. Patient has not seen formal neurology as outpatient per daughter. Per , prior to event, noted Alzheimers' disease dx one year ago * CT head w/o contrast (08/10/17):acute os subacute lacune infarct is not excluded in the left basal ganglia inferiorly with definitive chronic lacune identified in the right basal ganglia superiorly. No acute or subacute lobar brain infarction is appreciable by standard CT criteria. Mild age-related neuro degenerative changes are identifed. No acute intracranial hemorrhage or mass is identified throughout * 08/26: Off Sedation-->patient moves all extremities randomly but does not follow directions * 08/27: off sedation-->patient is very calm, smiles at his * 08/28: off sedation-->patient is very calm Status: Chronic (15) Unstageable Sacral Ulcer, Left Ear Auricle Ulcer, Right Heal Ulcer Assessment and Plan: * Wound care on board * WOUND CARE NOTE (08/26)-->Pt with a sacral unstageable being treated with medihoney. No changes to dimensions at this time. Also, pt favoring Left side of head and has developed a 1x1 serous filled blister on his left ear. Primary nurse placed duoderm on the ear. Wound care nurse left duoderm in place , and recommends leaving it on until it falls off on its own. Pt has been NPO for several days, new peg inserted yesterday. Will be starting glucerna tube feedings later today. Albumin 3.3 * Turn q 2 hours * medihoney on unstageable ulcer * duoderm on left ear aurical ulcer: this is healed as of 09/15/17 * Prevalon Boots for Right Heal Blister 09/13/17 * 09/02/17: examined with Wound Care Nurse Emeka Samuel and periphery of the Sacral Wound is pink with some bleeding however center is still black and therefore still unstageable. Continue spray with Cavelon followed by thick coating with MediHoney followed by covering with OptiFoam once a day. * 09/03/17: Change of sacral ulcer dressing was performed by me with assitance from Nurse Esmer * 09/04/17: 09/03/17: Change of sacral ulcer dressing was performed by me with assistance from ALEXANDRA Unger * Per wound care note (09/07): sacral ulcer is stable per wound care nurse * 09/14/17: Sacral Ulcer is unstageable and area of blackness fills entire circumference. General Surgery consult placed to see if debridement is necessary. Continue Cavelon Siletz followed by paulina thick coating of MediHoney followed by covering with OptiFoam. * 09/15/17: Surgery Team debrided Sacral Ulcer and Bone Scan will need to be followed up which was performed 09/17/17 * 09/18/17: With the help of Nurse Guzman, applied Cavelon Siletz followed by thick coating of MediHoney followed by covering with OptiFoam * 09/19/17: Dressing for Sacral Ulcer already changed before my exam. Explained to Nurse Guzman that best application of MediHoney would be to cover the padding of the OptiFoam with it and then apply the OptiFoam to the ulcer. Status: Acute (16) Elevated LFTs Assessment and Plan: * 08/27: Yina * Discussed with cardiology-->changed amiodarone 200mg PO tid to amiodaron 200mg PO daily * D/C tylenol * Held Statin * patient is also on Rocephin to cover for pneumonia * Will not start antifungal * 08/29: starting to down trending since change in amiodarone dose; awaiting to restart statin * 08/30: continues to trend down. Amiodarone was discontinued * 09/01: AST, ALT, Alk Phos still elevated but stable * 09/02: AST, ALT, Alk Phos still elevated but stable * 09/03: LFTs stable * 09/04: LFTs stable Status: Acute (17). Hx Constipation * Monitor bowel movement * Multiple bowel movements on 09/13/17 and 09/14/17 that are well formed s/p Fleet Enema on 09/13/17 * 09/15/17: NO bowel movement * 09/16/17: Soft pasty bowel movement * 09/17/17: Soft pasty bowel movement * 09/18/17: NO bowel movement * 09/19/17: ordered one dose of Lactulose 20 gm via PEG as still no bowel movement (18). Hyponatremia * 09/19/17: at 127 monitor for now (19). Prophylactic measure Assessment and Plan: * Pepcid 20mg PO daily * Start Eliquis 2.5mg PO BID * s/p peg placement 08/25 * s/p trachesostomy 08/22 * s/p Permcath placement 08/22 removal Kurtis catheter * s/p right posterior chest tube 08/19-->removed 08/24 * s/p Right Arm PICC 08/26 * (Jovita Serrano): -->number provided to the nurse- ->consented for peg placement; discussed about LTAC 08/26 * Spoke with Dr. Pickard, [place] regarding patient's hospitalization up until this point 08/2609/01/17: Dr. Cullen Barth spoke with the patient's [place] with the assistance of Nurse Campos on 3 tower (as multiple attempts of using Impossible Softwared indicated that all of the [place] translators were busy) and explained all of the patient's diagnosises. 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 Her ultimate wish is to take patient to [facility] where their children live. I explained to patient that I would not know how that would be coordinated but that the Social Workers/Paste Mixer Liquid at LTAC may be of assistance in this regard. I also informed her that I am not aware of any insurance company that would finance this request. She understands that the patient is awaiting insurance approval for LTAC. 09/01/17 and 09/02/17: Dr. Cullen Barth spoke with Composition Stone Applicator Demetria and we are still awaiting insurance authorization for LTAC placement. 09/05/17: Spoke with nehal, social services aide, wean trials sent to LTAC pending approval no word yet regarding approval. Ordered for repeat cultures given uptrend in white count. 09/06/17: pending repeat cultures in light of elevated procalcitonin; ID recommended to reculture. Note: patients PICC lined had clogged ports. Red port remains clogged in spite of cath rafaela. Blue port improved after cath rafaela. Possible may need to remove line to r/o infected line. Strong suspicion due to patient's pneumonia given he has thick secretions. 09/07/17: Infectious disease. pending repeat cultures in light of elevated procalcitonin; Note: patients PICC lined had clogged ports. Red port remains clogged in spite of cath rafaela. Blue port improved after cath rafaela. Hip xray negative for acute fracture. There are no noted falls. 09/08/17: Patient denied for LTAC; awaiting for other options from case management/social work. Resident Eng spoke with Dr. Cortés, patient be transferred under regular bed, when bed is available. Infectious disease on board; Patient started on IV Vancomycin in light of + blood culture. Pending chest xray. 09/09/17: Patient denied for LTAC; awaiting for other options from case management/social work with alisha verdin support. Patient started on IV Vancomycin MWF in light of + blood culture. Pending chest xray. F/U sputum with ID. f/u latest blood cultures. 09/13/17: Rapid response for low blood pressure and elevated WBC likely Septic Shock. Started on Levophed, added Meropenem to Vancomycin and 1 dose of Gentamycin given after speaking with ID. Ordered Obstruction Series as no bowel movement since 09/07/17. F/U Shock Panel. Discussed with ICU Resident to arrange for Change of Right Arm Midline line and Trach Collar. 09/14/17: Will await results of Blood Culture 09/13/17 to determine if the Right Arm Midline, Right Chest Perm Cath, and Trach Collar needs to be changed. Spoke with Composition Stone Applicator Demetria in ICU and patient information has been sent to [facility] (they accept patients on Trach) and she is awaiting to hear back from them before submitting approval request to insurance company. 09/15/17: [place] Trach placed by Cornice Maker. Surgical Team for debridement of Sacral Ulcer. Spoke with patient's (IN DEMAND Denisa [id number]) and explained/updated her on patient condition and obtained consent for sacral ulcer debridement. 09/16/17: Still awaiting performance of Sacral Bone Scan 09/17/17: Bone Scan performed and awaiting results 09/18/17: Awaiting Bone Scan Report 09/19/17: Still awaiting Bone Scan Report. Spoke again with Composition Stone Applicator Demetria and NO word yet from [facility] or [facility] (they do treat patients with Trachs). 09/20/17: Repeat Wound culture and urine culture sent. Dressing changed with medihoney and optifoam. No other changes at this time. Still waiting for approval for [facility] 09/21/17: No changes at this time. Will continue to change wound dressing Q3D and follow up with case management for for half-way transfer. 09/22/17: Dressing changed today with medihoney. Healing appropriately. Talked to case management. Still no update from group home transfer. Bone scan negative for osteo. Repeat wound cultures continue to grow Enterococcus. Will follow up sensitivities 09/26/17: Dialysis today. Dressing changed with optifoam and medihoney (nickel thick). VRE/germania in wound. Talked to case management. No updates at this time 09/27/17: dressing changed today with optifoam and medihoney (Nickel thick). Case management says no new information from [facility]. Will update as new information becomes available. 09/28/17: dressing changed today with optifoam and medihoney (Nickel thick). Case management says no new information from [facility]. Will update as new information becomes available. 3x3cm unstageable ulcer on R. heel present. Will talk to surgery for possible bedside debridment. 09/29/17:Talked to case management again today. No new information. Patient is tachycardiac and having blood tinged sputum in his trach collar. Will order a chest xray. 09/30/17: Talked to case management again today. No new information. went for dialysis yesterday due to excess fluid. Changed dressing at bedside today. 10/01/17: Bacitracin 2x/day for eschar on the base of the right thumb <Cullen Barth - Last Filed: 10/02/17 20:50> Objective - Vital Signs/Intake and Output Vital Signs (last 24 hours): Temp Pulse Resp BP Pulse Ox 98.5 F 88 20 122/73 99 10/02/17 16:00 10/02/17 16:00 10/02/17 16:00 10/02/17 16:00 10/02/17 16:00 Intake and Output: 10/02/17 10/03/17 18:59 06:59 Intake Total 500 Balance 500 - Medications Medications: Current Medications Acetylcysteine (Acetylcysteine 20%) 4 ml INH RQ6 [facility] Last Admin: 10/02/17 19:49 Dose: 4 ml Albuterol/Ipratropium (Duoneb 3 Mg/0.5 Mg (3 Ml) Ud) 3 ml INH RQ6 [facility] Last Admin: 10/02/17 19:49 Dose: 3 ml Apixaban (Eliquis) 2.5 mg PO BID [facility] Last Admin: 10/02/17 18:58 Dose: 2.5 mg Aspirin (Aspirin Chewable) 81 mg PO DAILY [facility] Last Admin: 10/02/17 10:56 Dose: 81 mg Calcium Acetate (Phoslo) 1,334 mg GT TID [facility] Last Admin: 10/02/17 18:58 Dose: 1,334 mg Famotidine (Pepcid) 20 mg PO DAILY [facility] Last Admin: 10/02/17 10:56 Dose: 20 mg Ferric Sodium Gluconate Complex (Ferrlecit) 125 mg IVPB DAILY@1600 [facility] Stop: 10/07/17 16:01 Last Admin: 10/02/17 16:48 Dose: 125 mg Fluconazole (Diflucan) 100 mg PO DAILY [facility] Last Admin: 10/02/17 10:56 Dose: 100 mg Heparin Sodium (Porcine) (Heparin) 3,700 units IVP MWF [facility] Last Admin: 09/30/17 15:59 Dose: 3,700 units Insulin Aspart (Novolog) 0 unit SC Q6 [facility] PRN Reason: Protocol Last Admin: 10/02/17 18:59 Dose: 2 unit Metoprolol Tartrate (Lopressor) 50 mg PO BID [facility] Last Admin: 10/02/17 18:58 Dose: 50 mg Rosuvastatin Calcium (Crestor) 10 mg PO HS [facility] Last Admin: 08/26/17 22:41 Dose: 10 mg Saccharomyces Boulardii (Florastor) 250 mg PO BID [facility] Last Admin: 10/02/17 18:58 Dose: 250 mg - Labs Labs: 10/02/17 07:11 10/02/17 07:11 PT 13.9 SECONDS (9.7-12.2) H 08/24/17 06:08 INR 1.2 08/24/17 06:08 APTT 55 SECONDS (21-34) H D 08/17/17 06:12 Attending/Attestation - Attestation I have personally seen and examined this patient.: Yes I have fully participated in the care of the patient.: Yes I have reviewed all pertinent clinical information, including history, physical exam and plan: Yes Notes (Text): 10/02/17 20:30 Patient was seen and examined at 6:15 PM with Nurse Julianne who helped me to change Sacral Wound Dressing. ROS not possible as patient is awake but not responding to questioning nor is he following commands today. Patient again had bowel movement at the time of my exam/changing of his Sacral Wound Dressing and it was nonbloody and pasty. Alson on Exam: HEENT: NCA, Pupils are round and reactive to light. EOM could not be tested today nor the pharynx visualized as he did not follow instructions today, NO cervical lymphadenopathy Cardio: NS1 and NS2, NO M/R/G Resp: faintly course breath sounds noted throughout GI: BSx4, Soft, NT (he did not grimace upon palpation), NO guarding Ext: NO edema, Pulses are strong and equal, Capillary Refill is 2 seconds Neuro: not possible today Skin: 9 x 11 cm sacral wound with leathery skin filling in the ulcer with healthy surrounding tissue, Right Heal 3 x 2 cm eschar, Bilateral Lateral Hip Bruising Also note: Patient required extra HD 09/29/17 due to increased Pulmonary Congestion on Chest X Ray that was done 09/29/17 due to blood tinged suctioning from Trach. ASA and Eliquis were held 09/29/17 but then restarted 09/30/17 as HgB/Hct remained stable. 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 There is a dry eschar on the base of the right thumb anteriorly with no surrounding signs of cellulitis (may have been secondary to the mittens that he has on to protect him from pulling on his PEG Tube and Trach which he has done in the past and continues to do at the time of exam on 09/30/17 when I took them off to check the skin around his hands): Bacitracin 2x/day. There appears to be bruising on the bilateral lateral hip area: applied Aloe Morehouse and covered with small padded bandage daily. Medicine Team: speak with Surgical Team on 10/03/17 to see if the Right Heal Ulcer needs to be debrided or not Disposition: [facility] [employer] Tiffanie informed me 09/29/17 that we were now awaiting to hear back from Piedad at [facility] for ALISHA. Cullen Barth D.O.
[2017-10-02] MEDS: Tigecycline 50 MG in Dextrose 5% In Water 100 ML IVPB SCH ×3 (05:43→21:02)
[2017-10-02 07:23] LABS: BASO # 0.1 K/uL (0.0-0.2); BASO % 0.7 % (0.0-2.0); EOS # 0.2 K/uL (0.0-0.7); EOS % 1.3 % (0.0-4.0); HEMATOCRIT 29.6 % (35.0-51.0); LYMPH # 2.9 K/uL (1.0-4.3); LYMPH % 19.9 % (20.0-40.0); MEAN CELL VOLUME 79.9 fL (80.0-94.0); MEAN CORPUSCULAR HEMOGLOBIN 24.6 pg (27.0-31.0); MEAN CORPUSCULAR HGB CONC 30.7 g/dL (33.0-37.0); MEAN PLATELET VOLUME 8.6 fL (7.2-11.7); MONO # 0.8 K/uL (0.0-0.8); MONO % 5.5 % (0.0-10.0); RED CELL DISTRIBUTION WIDTH 24.4 % (11.5-14.5); WHITE BLOOD COUNT 14.8 K/uL (4.8-10.8)
[2017-10-02 07:41] LABS: POTASSIUM 3.6 mmol/L (3.6-5.2)
[2017-10-02 07:43] LABS: ALB/GLOB RATIO 0.5 (1.0-2.1); BILIRUBIN,TOTAL 0.3 mg/dL (0.2-1.3); TOTAL PROTEIN 7.2 g/dL (6.3-8.3)
[2017-10-02 07:44] LABS: CALCIUM 10.1 mg/dl (8.6-10.4)
[2017-10-02] MEDS: Saccharomyces Boulardi 250 mg Cap PO SCH ×2 (10:57→18:58)
--- NOTE | 2017-10-02 14:26 | RAD ---
HISTORY: Possible Increased Pulmonary Congestion COMPARISON: Chest x-ray performed 09/29/17 TECHNIQUE: Chest, one view. FINDINGS: Examination limited by habitus. Tracheostomy tube. Right sided dialysis catheter with tips extending to the cavoatrial junction/ right atrium. LUNGS: Mild pulmonary venous congestion. No focal consolidation. Please note that chest x-ray has limited sensitivity for the detection of pulmonary masses. PLEURA: No significant pleural effusion identified. No definite pneumothorax . CARDIOVASCULAR: Cardiomegaly. Left-sided AICD. OSSEOUS STRUCTURES: Degenerative changes. VISUALIZED UPPER ABDOMEN: Unremarkable. OTHER FINDINGS: None. IMPRESSION: Tracheostomy tube. Right-sided dialysis catheter. Left-sided pacemaker. Cardiomegaly. Mild pulmonary venous congestion.
[2017-10-02] MEDS: Ferric Sodium Gluconat Complex 62.5 mg/5 ml Vial IVPB SCH (16:48)
--- NOTE | 2017-10-02 19:35 | CP.PCM.PN ---
Subjective - Date & Time of Evaluation Date of Evaluation: 10/02/17 Time of Evaluation: 15:10 - Subjective Subjective: Patient seen and evaluated No cardiac events noted Physical Examination - Constitutional Appears: Chronically Ill - Head Exam Head Exam: ATRAUMATIC, NORMAL INSPECTION, NORMOCEPHALIC - Eye Exam Eye Exam: EOMI Pupil Exam: NORMAL ACCOMODATION - ENT Exam ENT Exam: Mucous Membranes Moist - Neck Exam Additional comments: trach - Respiratory Exam Respiratory Exam: Clear to Ausculation Bilateral, NORMAL BREATHING PATTERN - Cardiovascular Exam Cardiovascular Exam: REGULAR RHYTHM - GI/Abdominal Exam GI & Abdominal Exam: Soft, Normal Bowel Sounds. absent: Distended, Tenderness - Extremities Exam Extremities Exam: absent: Joint Swelling, Tenderness - Back Exam Additional comments: 10x10 unstageable ulcer with healthy granulation tissue. No necrotic tissue. optifoam dressing with medihoney. Clear dry and intact - Neurological Exam Neurological Exam: Alert, Awake - Psychiatric Exam Psychiatric exam: Normal Affect, Normal Mood - Skin Skin Exam: Dry, Intact, Normal Color, Warm Objective - Vital Signs/Intake and Output Vital Signs (last 24 hours): Temp Pulse Resp BP Pulse Ox 98.5 F 88 20 122/73 99 10/02/17 16:00 10/02/17 16:00 10/02/17 16:00 10/02/17 16:00 10/02/17 16:00 Intake and Output: 10/02/17 10/03/17 18:59 06:59 Intake Total 500 Balance 500 - Medications Medications: Current Medications Acetylcysteine (Acetylcysteine 20%) 4 ml INH RQ6 [facility] Last Admin: 10/02/17 13:50 Dose: 4 ml Albuterol/Ipratropium (Duoneb 3 Mg/0.5 Mg (3 Ml) Ud) 3 ml INH RQ6 [facility] Last Admin: 10/02/17 13:50 Dose: 3 ml Apixaban (Eliquis) 2.5 mg PO BID [facility] Last Admin: 10/02/17 18:58 Dose: 2.5 mg Aspirin (Aspirin Chewable) 81 mg PO DAILY [facility] Last Admin: 10/02/17 10:56 Dose: 81 mg Calcium Acetate (Phoslo) 1,334 mg GT TID [facility] Last Admin: 10/02/17 18:58 Dose: 1,334 mg Famotidine (Pepcid) 20 mg PO DAILY [facility] Last Admin: 10/02/17 10:56 Dose: 20 mg Ferric Sodium Gluconate Complex (Ferrlecit) 125 mg IVPB DAILY@1600 [facility] Stop: 10/07/17 16:01 Last Admin: 10/02/17 16:48 Dose: 125 mg Fluconazole (Diflucan) 100 mg PO DAILY [facility] Last Admin: 10/02/17 10:56 Dose: 100 mg Heparin Sodium (Porcine) (Heparin) 3,700 units IVP MWF [facility] Last Admin: 09/30/17 15:59 Dose: 3,700 units Insulin Aspart (Novolog) 0 unit SC Q6 [facility] PRN Reason: Protocol Last Admin: 10/02/17 18:59 Dose: 2 unit Metoprolol Tartrate (Lopressor) 50 mg PO BID [facility] Last Admin: 10/02/17 18:58 Dose: 50 mg Rosuvastatin Calcium (Crestor) 10 mg PO HS [facility] Last Admin: 08/26/17 22:41 Dose: 10 mg Saccharomyces Boulardii (Florastor) 250 mg PO BID [facility] Last Admin: 10/02/17 18:58 Dose: 250 mg - Labs Labs: 10/02/17 07:11 10/02/17 07:11 PT 13.9 SECONDS (9.7-12.2) H 08/24/17 06:08 INR 1.2 08/24/17 06:08 APTT 55 SECONDS (21-34) H D 08/17/17 06:12 Assessment and Plan - Assessment and Plan (Free Text) Assessment: Assessment and Plan - Assessment and Plan (Free Text) Assessment: Atrial Fibrillation Intermittent Rate controlled. On Metoprolol 50 mg PO BID, Eliquis 2.5 mg PO BID CAD, chest pain -No current plans for cardiac cath (acute respiratory failure and elevated Cr) , history of abnormal stress test -Elevated Troponin likely due to chest compressions during cardiac arrest 08/10 -No acute ST changes on EKG -Continue ASA, Crestor, Metoprolol. -Echocardiogram from 08/08/17 showed left ventricle systolic function is severely impaired. EF: 25-30%; global hypokinesis of LV mild AR. MR is moderate. Moderate-severe pulmonary hypertension Systolic CHF exacerbation -CXR 09/09: Diminished bilateral basilar airspace disease; stable cardiomegaly -BNP [id number] on 08/06/17 -Continue ASA, Crestor, Metoprolol -Echocardiogram from 08/08/17 showed left ventricle systolic function is severely impaired. EF: 25-30%; global hypokinesis of LV mild AR. MR is moderate. Moderate-severe pulmonary hypertesnion Dobutamine discontinued in light of atrial flutter-type episodes Diabetes Mellitus ISS Continue to monitor ESRD on HD Currently on HD On Procrit and Phoslo Nephro on the case Prophylaxis Pepcid 20 mg PO daily Eliquis 2.5 mg PO BID (Renal precautions) Disposition Awaiting Transfer to LTAC
[2017-10-03] MEDS: (Novolog) Insulin Aspart, Recombinant 100 u/ml 10 ml vial SC SCH ×3 (00:28→17:44)
[2017-10-03] MEDS: Albuterol-Ipratrop 3 mg / 0.5 (3 ml) UD INH SCH ×4 (01:59→20:00)
[2017-10-03] MEDS: Acetylcysteine 20% Inhal Soln (4ml) INH SCH ×4 (01:59→20:00)
--- NOTE | 2017-10-03 07:17 | CP.PCM.PN ---
<Sina White - Last Filed: 10/03/17 13:58> Subjective - Date & Time of Evaluation Date of Evaluation: 10/03/17 Time of Evaluation: 07:16 - Subjective Subjective: Medicine Progress Note for Dr. Lazar HPI: Patient seen and examined at bedside. More awake and alert. Seen in dialysis. ROS Unattainable. Objective - Vital Signs/Intake and Output Vital Signs (last 24 hours): Temp Pulse Resp BP Pulse Ox 98.3 F 81 20 133/61 98 10/03/17 01:21 10/03/17 01:21 10/03/17 01:21 10/03/17 01:21 10/03/17 01:21 Intake and Output: 10/03/17 10/03/17 06:59 18:59 Intake Total 300 Balance 300 - Medications Medications: Current Medications Acetylcysteine (Acetylcysteine 20%) 4 ml INH RQ6 [facility] Last Admin: 10/03/17 01:59 Dose: 4 ml Albuterol/Ipratropium (Duoneb 3 Mg/0.5 Mg (3 Ml) Ud) 3 ml INH RQ6 [facility] Last Admin: 10/03/17 01:59 Dose: 3 ml Apixaban (Eliquis) 2.5 mg PO BID [facility] Last Admin: 10/02/17 18:58 Dose: 2.5 mg Aspirin (Aspirin Chewable) 81 mg PO DAILY [facility] Last Admin: 10/02/17 10:56 Dose: 81 mg Calcium Acetate (Phoslo) 1,334 mg GT TID [facility] Last Admin: 10/02/17 18:58 Dose: 1,334 mg Famotidine (Pepcid) 20 mg PO DAILY [facility] Last Admin: 10/02/17 10:56 Dose: 20 mg Ferric Sodium Gluconate Complex (Ferrlecit) 125 mg IVPB DAILY@1600 [facility] Stop: 10/07/17 16:01 Last Admin: 10/02/17 16:48 Dose: 125 mg Fluconazole (Diflucan) 100 mg PO DAILY [facility] Last Admin: 10/02/17 10:56 Dose: 100 mg Heparin Sodium (Porcine) (Heparin) 3,700 units IVP MWF [facility] Last Admin: 09/30/17 15:59 Dose: 3,700 units Tigecycline 50 mg/ Dextrose 100 mls @ 100 mls/hr IVPB Q12H [facility] Last Admin: 10/02/17 21:02 Dose: Not Given Insulin Aspart (Novolog) 0 unit SC Q6 [facility] PRN Reason: Protocol Last Admin: 10/03/17 06:26 Dose: 3 unit Metoprolol Tartrate (Lopressor) 50 mg PO BID [facility] Last Admin: 10/02/17 18:58 Dose: 50 mg Rosuvastatin Calcium (Crestor) 10 mg PO [facility] Last Admin: 10/02/17 22:42 Dose: Not Given Rosuvastatin Calcium (Crestor) 10 mg PO [facility] Last Admin: 10/02/17 22:48 Dose: 10 mg Saccharomyces Boulardii (Florastor) 250 mg PO BID [facility] Last Admin: 10/02/17 18:58 Dose: 250 mg - Labs Labs: 10/02/17 07:11 10/02/17 07:11 PT 13.9 SECONDS (9.7-12.2) H 08/24/17 06:08 INR 1.2 08/24/17 06:08 APTT 55 SECONDS (21-34) H D 08/17/17 06:12 - Additional Findings Additional findings: - Constitutional Appears: Chronically Ill - Head Exam Head Exam: ATRAUMATIC, NORMAL INSPECTION, NORMOCEPHALIC - Eye Exam Eye Exam: EOMI Pupil Exam: NORMAL ACCOMODATION - ENT Exam ENT Exam: Mucous Membranes Moist - Neck Exam Additional comments: trach, blood in trach collar - Respiratory Exam Respiratory Exam: Clear to Ausculation Bilateral, NORMAL BREATHING PATTERN - Cardiovascular Exam Cardiovascular Exam: REGULAR RHYTHM, tachycardic - GI/Abdominal Exam GI & Abdominal Exam: Soft, Normal Bowel Sounds. absent: Distended, Tenderness - Extremities Exam Extremities Exam: absent: Joint Swelling, Tenderness - Back Exam Additional comments: 10x10 unstageable ulcer with healthy granulation tissue. No necrotic tissue. optifoam dressing with medihoney. Clear dry and intact - Neurological Exam Neurological Exam: Alert, Awake - Psychiatric Exam Psychiatric exam: Normal Affect, Normal Mood - Skin Skin Exam: Dry, Intact, Normal Color, Warm Additional comments: Bruising on b/l hips; eschar on the base of the anterior right thumb Assessment and Plan - Assessment and Plan (Free Text) Assessment: (1) Acute Respiratory Failure ARDS Cardiac Arrest Pulmonary Edema Nonstemi Assessment and Plan: * Code Blue on 08/10: asystole, cardiopulmonary resuscitative measures initiated , requiring 3 epis, bicarbonate, ROSC achieved and intubated and brought to the ICU for further management; Patient in the ICU from 08/10 until present. * Pulmonary: Dr Mena (Dr. Jeffers covering until 09/04/17)-->help appreciated * Cardiology: Dr. Cortés on board-->help appreciated * GI (Dr. Wills) on board-->help appreciated * S/P Tracheostomy 08/22 * S/P Peg tube placement 08/25 * s/p insertion of right posterior chest tube 08/19-->removed 08/24/17 * There was consideration for possible thoracentesis of left side pleural effusion, evaluated by IR, there is no fluid to drain per Dr. Gross * Chest xray (08/26): right arm PICC is seen with the tip of distal subclavian vein. PICC may be used * Per cardiology, * Restart Aspirin 81mg PO daily * Patient does not need Plavix at this time * Recommend for Eliquis 2.5mg PO BID for atrial flutter * 08/27: patient is pending LTAC, he went eventually need cardiac catheterization when he has stabilized. Held statin secondary to elevated LFTs. Discussed with Dr. Cortés, lowered Amiodarone 200mg PO daily * 08/28: patient is pending LTAC, he went eventually need cardiac catheterization when he has stabilized. Liver function tests improving * 08/29: Advertising Copy Writer Nehal has sent request to insurance for authorization for LTAC-->pending * 09/06: pending social work/case management approval for LTAC * 09/07: pending social work/case management approval for LTAC * 09/08: Unable to get approval for LTAC; pending other options * 09/09: Transferred from step-down ICU to the floors * 09/13: Trasnferred back to ICU S/P Rapid Response for low blood pressure * 09/14: Currently on Acetylcysteine 20 % Neb Q6H and Duoneb Q6H * 09/15: Passy Flex Trach placed by Communication Lecturer (2) Abnormal Stress Test History of AICD History of Coronary Artery Disease Assessment and Plan: * Cardiology (Dr. Cortés) on board-->help appreciated * TSH: 1.16; T4: 1.53 * Echocardiogram (08/08/17): left ventricle systolic function is severely impaired. EF: 25-30%; global hypokinesis of left ventricle mild aortic regurgitation. Mitral regurgitation is moderate. Moderate-severe pulmonary hypertension * Plan was for cardiac catheterization; delayed due to acute renal failure; Attempted gentle hydration and mucomyst on 08/09 to optimize prior to cath * On 08/10, patient was in asystole, ACLS protocol, ROSC achieved, intubated and transfered to the ICU. Patient in acute pulmonary edema. * Patient hospitalized in the ICU since 08/10/17 to present. * Medications: * Aspirin 81mg PO daily * Plavix d/c by cardiology * Lopressor 50mg PO bid * d/c Crestor 10mg POqHS secondary to rise in LFTS 08/27--->monitor LFTs daily * ARB d/c secondary to acute renal failure * 08/27: patient is pending LTAC, he went eventually need cardiac catheterization when he has stabilized. Held statin secondary to elevated LFTs. Discussed with Dr. Cortés, lowered Amiodarone 200mg PO daily * 08/28: He will eventually need cardiac catheterization when he has stabilized. Liver function tests improving. Statin is on hold (3) Atrial flutter Assessment and Plan: * Cardiology (Dr. Cortés) on board-->help appreciated * Refractory to Lopressor/Cardizem IVP * Eliquis 2.5mg PO bid * Amiodarone bolus-->Amiodarine drip on 08/24-->converted to Amiodarone 200mg PO TID on 08/26 and this was decreased to 200 mg 1x/day due to increased LFTs * 08/27: Discussed with Dr. Cortés, will lower Amiodarone 200mg PO daily and monitor LFTs. Statin held and tylenol d/c * 08/29: patient is pending LTAC, he will eventually need cardiac catheterization when he has stabilized. Liver function tests improving. Statin is on hold due to the elevated LFTs * 08/30: Cardiology discontinued the Amiodarone * 09/07: Held eliquis; will need to resume * 09/09: Eliquis resumed, off Amiodarone Status: Acute (4) Acute on Chronic Systolic CHF exacerbation Assessment and Plan: * Cardiology (Dr. Cortés) on board-->help appreciated * Transferred to the ICU on 08/10 following cardiac arrest and intubation. * Echocardiogram (08/08/17): left ventricular systolic function is severely impaired. EF: 25-30%; global hypokinesis of left ventricle mild aortic regurgitation. Mitral regurgitation is moderate. Moderate-severe pulmonary hypertension * Medications: * Aspirin 81mg PO daily * Plavix d/c by cardiology * Lopressor 50mg PO bid * d/c Crestor 10mg POqHS on 08/27 secondary to rise in LFTs * ARB d/c secondary to acute renal failure Status: Acute (5) Leukocytosis Assessment and Plan: * Patient's white count downtrending * Pleural Fluid 08/19/17 did not show any growth * Blood cultures (08/26): no growth X5 days * UA and urine culture (08/27): Urine Culture showed Yeast Species. * Patient has elevated LFTs-->did not start anti-fungal in light of LFTs New: * 09/05/17 Blood: gram positive cocci-->pending speciation * 09/05/17 Blood: no growth after 4 days * 09/07/17 Legionella Culture: negative * 09/07/17 Mycobacteria: negative * 09/07/17 Sputum: Enterocloace Bacter; yeast * 09/07/17 Blood: negative X 48 hours * 09/07/17 Blood: negative X 48 hours * 09/06: stool culture pending; has not had diarrhea or bowel movement * 09/07: Dr. Zimmer (covering Dr. Lawrence) to see the patient given elevated procalcitonin * Blood Culture 09/13/17 is negative to date and Urine Culture 09/13/17 showed Yeast Species * 09/14: Could this be secondary to the Septic Shock? Secondary to Osteomyelitis of the Sacrum? 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) and Meropenem 500 mg IV Q8H (09/13/17 through 09/16/17), Diflucan 200 mg PO 1x/day (09/13/17), Bactrim 10 mL PO Q12H (09/12/17 through 09/16/17), Tigecycline 50 mg IV Q12H (09/16/17 started because of VRE on Sacrum Wound Culture 09/14/17) * ESR 09/14/17 elevated at 89 * Bone Scan performed 09/17/17 to check for Osteomyelitis at the Sacrum: results are pending * Meropenem 500 mg IV Q12H (09/13/17 through 09/16/17: which will cover the Enterbacter in the Sputum 09/07/17 and the possibility of Sacral Osteomyelitis) * Antibiotics as of 09/17/17:Tigecycline (09/16/17: which will cover the VRE in Sacral Wound Culture 09/14/17 and the possibility of Sacral Osteomyelitis) and Diflucan 200 mg PO 1x/day (09/13/17: which will cover with Yeast in the Sputum, Urine, and Sacral Wound Culture) Status: Acute (6) Pneumonia Assessment and Plan: * Pulmonary (Dr. Mena) on board-->help appreciated; Dr. Jeffers covering while Dr. Mena away * Infectious Disease (Dr. Lawrence)-->help appreciated * Chest xray (08/26): right arm PICC is seen with the tip of distal subclavian vein. PICC may be used * Rapid A strep, Influenza A and B studies, Urine Legionella, Mycoplasma studies = Negative * Florastor 250mg PO bid * 08/07/17: +Strep Pneumoniae in the urine * Meropenem 500mg IV Q 8 hours (08/14/17 through 08/18/17) and Zosyn 2.25 mg IV Q6H (08/13/17 through 08/18/17) * Cefepime 1 gm IV Q24H: started on 08/19/17 and was discontinued by ID Dr. Lawrence on 08/30/17: monitor vitals and labs * s/p right posterior chest tube 08/19-08/24 * Sputum Culture 08/19/17 shows No growth * Pleural fluid 08/19/17: No growth * 09/07/17 Sputum: Enterocloace Bacter and Yeast Species: See Antibiotic treatment in previous Assessment and Plan * Sputum 09/10/17 shows NO AFB Status: Acute (7) HTN (hypertension) Assessment and Plan: * Lopressor 50mg PO bid * Lisinopril 5mg PO daily Status: Chronic (8) CKD (chronic kidney disease) on Dialysis Assessment and Plan: * Dr. Miranda (nephrology) consulted on the case * Hx of CKD-->Started on dialysis 08/15/17 * Kurtis catheter placed and removed 08/22 * s/p Right Chest Permcath 08/22 * Patient is on dialysis M-W-; oliguric * Phoslo 1334mg GT TID * Epoetin 10,000 unit IV MWF Status: Acute (9) Diabetes mellitus Assessment and Plan: * Accuchecks Q6H * HgbA1c 8.4 * Started peg feedings on 08/26/17 * Nepro-->50 ml/hour but this was held 09/13/17 due suspicion of Bowel Obstruction as NO bowel Movement since 09/07/17. This was restarted on after NO obstruction was observed on Obstruction Series 09/13/17 and after multiple bowel movement s/p Fleet Enema 09/13/17 (10) HLD (hyperlipidemia) Assessment and Plan: * 08/27: held Crestor 10 mg PO HS secondary to rise in LFTs * 08/29: Liver function tests improving; waiting to restart statin Status: Chronic (11) Anemia Assessment and Plan: * Heme-oncology (Dr. Giles bender) on board-->help appreciated * Likely iron deficiency anemia based on prior admissions * Ferritin 27.4, Iron 22, TIBC 322, % Saturation 7 * Ferric Sodium Gluconate 125mg IVPB daily (active 08/08-08/16) * Procrit 10,000 units - * Monitor Hgb/Hct: stable Status: Chronic (12) History of DVT (deep vein thrombosis) Assessment and Plan: * Patient was previously on Eliquis for a prior history of DVT. * Repeat dopplers 08/09/17 are negative for DVT * Off Heparin Drip 08/17/17 * Started Eliquis 2.5mg PO BID for atrial flutter and history of DVT Status: Chronic (13) UTI Assessment and Plan: * Infectious disease (Dr. Lawrence) on board-->help appreciated * Exchange jaquez out and repeat urine cultures * Urine Culture 08/12/17 showed Gram Negative Rods: NO identification and NO sensitivities were performed * Meropenem 500mg IV Q 12hours (active since 08/14/17 through 08/18/17) to cover for UTI per ID * Repeat Urine Culture 08/18/17 shows NO growth * 08/25: reculture in light of leukocytosis * 08/27: pending urine studies * 08/30: Urine Culture 08/27/17 showed Yeast Species but no antifungal at that time secondary to recent history of Elevated LFTs * Urine Culture 09/13/17 showed Yeast Species: he is on Diflucan Status: Chronic (14) Confusion; Alzheimer's Dementia Assessment and Plan: * Per daughter, patient has been getting bouts of confusion over the past year but appears at baseline. Patient has not seen formal neurology as outpatient per daughter. Per , prior to event, noted Alzheimers' disease dx one year ago * CT head w/o contrast (08/10/17):acute os subacute lacune infarct is not excluded in the left basal ganglia inferiorly with definitive chronic lacune identified in the right basal ganglia superiorly. No acute or subacute lobar brain infarction is appreciable by standard CT criteria. Mild age-related neuro degenerative changes are identifed. No acute intracranial hemorrhage or mass is identified throughout * 08/26: Off Sedation-->patient moves all extremities randomly but does not follow directions * 08/27: off sedation-->patient is very calm, smiles at his * 08/28: off sedation-->patient is very calm Status: Chronic (15) Unstageable Sacral Ulcer, Left Ear Auricle Ulcer, Right Heal Ulcer Assessment and Plan: * Wound care on board * WOUND CARE NOTE (08/26)-->Pt with a sacral unstageable being treated with medihoney. No changes to dimensions at this time. Also, pt favoring Left side of head and has developed a 1x1 serous filled blister on his left ear. Primary nurse placed duoderm on the ear. Wound care nurse left duoderm in place , and recommends leaving it on until it falls off on its own. Pt has been NPO for several days, new peg inserted yesterday. Will be starting glucerna tube feedings later today. Albumin 3.3 * Turn q 2 hours * medihoney on unstageable ulcer * duoderm on left ear aurical ulcer: this is healed as of 09/15/17 * Prevalon Boots for Right Heal Blister 09/13/17 * 09/02/17: examined with Wound Care Nurse Emeka Samuel and periphery of the Sacral Wound is pink with some bleeding however center is still black and therefore still unstageable. Continue spray with Cavelon followed by thick coating with MediHoney followed by covering with OptiFoam once a day. * 09/03/17: Change of sacral ulcer dressing was performed by me with assitance from Nurse Esmer * 09/04/17: 09/03/17: Change of sacral ulcer dressing was performed by me with assistance from ALEXANDRA Unger * Per wound care note (09/07): sacral ulcer is stable per wound care nurse * 09/14/17: Sacral Ulcer is unstageable and area of blackness fills entire circumference. General Surgery consult placed to see if debridement is necessary. Continue Cavelon [place] followed by paulina thick coating of MediHoney followed by covering with OptiFoam. * 09/15/17: Surgery Team debrided Sacral Ulcer and Bone Scan will need to be followed up which was performed 09/17/17 * 09/18/17: With the help of Nurse Guzman, applied Cavelon [place] followed by thick coating of MediHoney followed by covering with OptiFoam * 09/19/17: Dressing for Sacral Ulcer already changed before my exam. Explained to Nurse Guzman that best application of MediHoney would be to cover the padding of the OptiFoam with it and then apply the OptiFoam to the ulcer. Status: Acute (16) Elevated LFTs Assessment and Plan: * 08/27: Yina * Discussed with cardiology-->changed amiodarone 200mg PO tid to amiodaron 200mg PO daily * D/C tylenol * Held Statin * patient is also on Rocephin to cover for pneumonia * Will not start antifungal * 08/29: starting to down trending since change in amiodarone dose; awaiting to restart statin * 08/30: continues to trend down. Amiodarone was discontinued * 09/01: AST, ALT, Alk Phos still elevated but stable * 09/02: AST, ALT, Alk Phos still elevated but stable * 09/03: LFTs stable * 09/04: LFTs stable Status: Acute (17). Hx Constipation * Monitor bowel movement * Multiple bowel movements on 09/13/17 and 09/14/17 that are well formed s/p Fleet Enema on 09/13/17 * 09/15/17: NO bowel movement * 09/16/17: Soft pasty bowel movement * 09/17/17: Soft pasty bowel movement * 09/18/17: NO bowel movement * 09/19/17: ordered one dose of Lactulose 20 gm via PEG as still no bowel movement (18). Hyponatremia * 09/19/17: at 127 monitor for now (19). Prophylactic measure Assessment and Plan: * Pepcid 20mg PO daily * Start Eliquis 2.5mg PO BID * s/p peg placement 08/25 * s/p trachesostomy 08/22 * s/p Permcath placement 08/22 removal Kurtis catheter * s/p right posterior chest tube 08/19-->removed 08/24 * s/p Right Arm PICC 08/26 * (Jovita Serrano): -->number provided to the nurse- ->consented for peg placement; discussed about LTAC 08/26 * Spoke with Dr. Pickard, PMD regarding patient's hospitalization up until this point 08/2609/01/17: Dr. Cullen Barth spoke with the patient's [place] with the assistance of Nurse Beth on 3 tower (as multiple attempts of using Inter[employer] indicated that all of the English translators were busy) and explained all of the patient's diagnosises. 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 Her ultimate wish is to take patient to [facility] where their children live. I explained to patient that I would not know how that would be coordinated but that the Social Workers/Air Table Operator at LTAC may be of assistance in this regard. I also informed her that I am not aware of any insurance company that would finance this request. She understands that the patient is awaiting insurance approval for LTAC. 09/01/17 and 09/02/17: Dr. Clulen Barth spoke with Log Chain Worker Demetria and we are still awaiting insurance authorization for LTAC placement. 09/05/17: Spoke with nehal, psychotherapist social worker, wean trials sent to LTAC pending approval no word yet regarding approval. Ordered for repeat cultures given uptrend in white count. 09/06/17: pending repeat cultures in light of elevated procalcitonin; ID recommended to reculture. Note: patients PICC lined had clogged ports. Red port remains clogged in spite of cath rafaela. Blue port improved after cath rafaela. Possible may need to remove line to r/o infected line. Strong suspicion due to patient's pneumonia given he has thick secretions. 09/07/17: Infectious disease. pending repeat cultures in light of elevated procalcitonin; Note: patients PICC lined had clogged ports. Red port remains clogged in spite of cath rafaela. Blue port improved after cath rafaela. Hip xray negative for acute fracture. There are no noted falls. 09/08/17: Patient denied for LTAC; awaiting for other options from case management/social work. Resident Daniel spoke with Dr. Cortés, patient be transferred under regular bed, when bed is available. Infectious disease on board; Patient started on IV Vancomycin in light of + blood culture. Pending chest xray. 09/09/17: Patient denied for LTAC; awaiting for other options from case management/social work with kamlesh verdin support. Patient started on IV Vancomycin MWF in light of + blood culture. Pending chest xray. F/U sputum with ID. f/u latest blood cultures. 09/13/17: Rapid response for low blood pressure and elevated WBC likely Septic Shock. Started on Levophed, added Meropenem to Vancomycin and 1 dose of Gentamycin given after speaking with ID. Ordered Obstruction Series as no bowel movement since 09/07/17. F/U Shock Panel. Discussed with ICU Resident to arrange for Change of Right Arm Midline line and Trach Collar. 09/14/17: Will await results of Blood Culture 09/13/17 to determine if the Right Arm Midline, Right Chest Perm Cath, and Trach Collar needs to be changed. Spoke with Log Chain Worker Demetria in ICU and patient information has been sent to [facility] and [facility] (they accept patients on Trach) and she is awaiting to hear back from them before submitting approval request to insurance company. 09/15/17: Passy [place] Trach placed by Communication Lecturer. Surgical Team for debridement of Sacral Ulcer. Spoke with patient's ([place] Denisa [id number]) and explained/updated her on patient condition and obtained consent for sacral ulcer debridement. 09/16/17: Still awaiting performance of Sacral Bone Scan 09/17/17: Bone Scan performed and awaiting results 09/18/17: Awaiting Bone Scan Report 09/19/17: Still awaiting Bone Scan Report. Spoke again with Log Chain Worker Demetria and NO word yet from [facility] or [facility] (they do treat patients with Trachs). 09/20/17: Repeat Wound culture and urine culture sent. Dressing changed with medihoney and optifoam. No other changes at this time. Still waiting for approval for [facility] 09/21/17: No changes at this time. Will continue to change wound dressing Q3D and follow up with case management for for [facility] transfer. 09/22/17: Dressing changed today with medihoney. Healing appropriately. Talked to case management. Still no update from [facility] transfer. Bone scan negative for osteo. Repeat wound cultures continue to grow Enterococcus. Will follow up sensitivities 09/26/17: Dialysis today. Dressing changed with optifoam and medihoney (nickel thick). VRE/germania in wound. Talked to case management. No updates at this time 09/27/17: dressing changed today with optifoam and medihoney (Nickel thick). Case management says no new information from [facility]. Will update as new information becomes available. 09/28/17: dressing changed today with optifoam and medihoney (Nickel thick). Case management says no new information from [facility]. Will update as new information becomes available. 3x3cm unstageable ulcer on R. heel present. Will talk to surgery for possible bedside debridment. 09/29/17:Talked to case management again today. No new information. Patient is tachycardiac and having blood tinged sputum in his trach collar. Will order a chest xray. 09/30/17: Talked to case management again today. No new information. went for dialysis yesterday due to excess fluid. Changed dressing at bedside today. 10/03/17: Dressing changed daily. Talked to ID on duration of Tigecycline, will evaluate wound. Surgery will also evaluate wound. Accepted at [facility]. Needs 2 days for authorization. Plan discharge on Tuesday <Mariangel Lazar V - Last Filed: 10/04/17 10:11> Objective - Vital Signs/Intake and Output Vital Signs (last 24 hours): Temp Pulse Resp BP Pulse Ox 97.8 F 80 20 118/60 96 10/04/17 07:56 10/04/17 07:56 10/04/17 07:56 10/04/17 07:56 10/04/17 07:56 Intake and Output: 10/04/17 10/04/17 06:59 18:59 Intake Total 500 Balance 500 - Medications Medications: Current Medications Acetylcysteine (Acetylcysteine 20%) 4 ml INH RQ6 [facility] Last Admin: 10/04/17 07:16 Dose: 4 ml Albuterol/Ipratropium (Duoneb 3 Mg/0.5 Mg (3 Ml) Ud) 3 ml INH RQ6 [facility] Last Admin: 10/04/17 07:16 Dose: 3 ml Apixaban (Eliquis) 2.5 mg PO BID [facility] Last Admin: 10/03/17 17:46 Dose: 2.5 mg Aspirin (Aspirin Chewable) 81 mg PO DAILY [facility] Last Admin: 10/03/17 16:25 Dose: 81 mg Calcium Acetate (Phoslo) 1,334 mg GT TID [facility] Last Admin: 10/03/17 17:45 Dose: 1,334 mg Epoetin Chencho (Procrit) 10,000 unit IV [facility] Famotidine (Pepcid) 20 mg PO DAILY [facility] Last Admin: 10/03/17 16:25 Dose: 20 mg Ferric Sodium Gluconate Complex (Ferrlecit) 125 mg IVPB DAILY [facility] Stop: 10/11/17 10:01 Last Admin: 10/03/17 11:41 Dose: 125 mg Fluconazole (Diflucan) 100 mg PO DAILY [facility] Last Admin: 10/03/17 17:46 Dose: 100 mg Heparin Sodium (Porcine) (Heparin) 3,700 units IVP MWF [facility] Last Admin: 10/03/17 11:42 Dose: 3,700 units Tigecycline 50 mg/ Dextrose 100 mls @ 100 mls/hr IVPB Q12H [facility] Last Admin: 10/03/17 21:09 Dose: 100 mls/hr Insulin Aspart (Novolog) 0 unit SC Q6 [facility] PRN Reason: Protocol Last Admin: 10/04/17 07:40 Dose: 4 unit Metoprolol Tartrate (Lopressor) 50 mg PO BID [facility] Last Admin: 10/03/17 17:45 Dose: 50 mg Rosuvastatin Calcium (Crestor) 10 mg PO HS [facility] Last Admin: 10/03/17 21:09 Dose: 10 mg Rosuvastatin Calcium (Crestor) 10 mg PO HS [facility] Last Admin: 10/03/17 21:10 Dose: Not Given Saccharomyces Boulardii (Florastor) 250 mg PO BID [facility] Last Admin: 10/03/17 17:45 Dose: 250 mg - Labs Labs: 10/04/17 08:00 10/04/17 08:00 PT 13.9 SECONDS (9.7-12.2) H 08/24/17 06:08 INR 1.2 08/24/17 06:08 APTT 55 SECONDS (21-34) H D 08/17/17 06:12 Attending/Attestation - Attestation I have personally seen and examined this patient.: Yes I have fully participated in the care of the patient.: Yes I have reviewed all pertinent clinical information, including history, physical exam and plan: Yes Notes (Text): This is late computer entry for 10/03/17. Patient seen, examined, and case discussed with day-time resident while patient is dialysis. Patient is awake, smiles, but unable to speak secondary to clinical condition. Sacral wound is healing; infectious disease to follow-up today. Will need to follow-up with surgery regarding heel ulcer over left lower extremity Assessment/Plan (1) Acute Respiratory Failure ARDS Cardiac Arrest Pulmonary Edema Nonstemi Assessment and Plan: * Code Blue on 08/10: asystole, cardiopulmonary resuscitative measures initiated , requiring 3 epis, bicarbonate, ROSC achieved and intubated and brought to the ICU for further management; Patient in the ICU from 08/10 until present. * Pulmonary: Dr Mena (Dr. Jeffers covering until 09/04/17)-->help appreciated * Cardiology: Dr. Cortés on board-->help appreciated * GI (Dr. Wills) on board-->help appreciated * S/P Tracheostomy 08/22 * S/P Peg tube placement 08/25 * s/p insertion of right posterior chest tube 08/19-->removed 08/24/17 * Passy [place] Trach placed 09/15 * There was consideration for possible thoracentesis of left side pleural effusion, evaluated by IR, there is no fluid to drain per Dr. Gross * Chest xray (08/26): right arm PICC is seen with the tip of distal subclavian vein. PICC may be used * Chest Xray (09/20/17): lines and tubes stable position, left-sided pacemaker, moderate venous congestion, left basilar opacity with associated small left pleural effusion, Cardiomegaly. Prominent aorta, degenrative changes in spine and shoulders * Medications: * Acetylcysteine 20% 4ml INH RQ6H * Duoneb 3ml INH RQ6H * Aspirin 81mg PO daily * Eliquis 2.5mg PO bid * Lopressor 50mg PO bid * 10/03: pulmonary note: reports attempt at decannulation; will follow-up (2) Abnormal Stress Test History of AICD History of Coronary Artery Disease Assessment and Plan: * Cardiology (Dr. Cortés) on board-->help appreciated * TSH: 1.16; T4: 1.53 * Echocardiogram (08/08/17): left ventricle systolic function is severely impaired. EF: 25-30%; global hypokinesis of left ventricle mild aortic regurgitation. Mitral regurgitation is moderate. Moderate-severe pulmonary hypertension * Plan was for cardiac catheterization; delayed due to acute renal failure; Attempted gentle hydration and mucomyst on 08/09 to optimize prior to cath * On 08/10, patient was in asystole, ACLS protocol, ROSC achieved, intubated and transfered to the ICU. Patient in acute pulmonary edema. * Patient hospitalized and require to and from ICU twice during this admission * Cardiac cath postponed at this time * Medications: * Acetylcysteine 20% 4ml INH RQ6H * Duoneb 3ml INH RQ6H * Aspirin 81mg PO daily * Eliquis 2.5mg PO bid * Lopressor 50mg PO bid (3) Atrial flutter Assessment and Plan: * Cardiology (Dr. Cortés) on board-->help appreciated * Refractory to Lopressor/Cardizem IVP * Eliquis 2.5mg PO bid * Off Amiodarone per cardiology * c/w Lopressor 50mg PO bid Status: Resolved (4) Acute on Chronic Systolic CHF exacerbation Assessment and Plan: * Cardiology (Dr. Cortés) on board-->help appreciated * Transferred to the ICU on 08/10 following cardiac arrest and intubation. * Echocardiogram (08/08/17): left ventricular systolic function is severely impaired. EF: 25-30%; global hypokinesis of left ventricle mild aortic regurgitation. Mitral regurgitation is moderate. Moderate-severe pulmonary hypertension * Medications: * Aspirin 81mg PO daily * Lopressor 50mg PO bid * ARB d/c secondary to acute renal failure * Restart statin given LFTs normalized Status: Stable (5) Leukocytosis Assessment and Plan: * Pleural Fluid 08/19/17 did not show any growth * Blood cultures (09/13): no growth X5 days X2 * Blood cultures (09/07) during dialysis: no growth X5 days X2 * UA and urine culture (08/27): Yeast Species. * UA and urine culture (09/13): Yeast Species. * Urine culture (09/20: Yeast species * 09/07/17 Legionella Culture: negative * 09/07/17 Mycobacteria: negative * 09/07/17 Sputum: Enterocloace Bacter; yeast * Blood cultures (09/13): no growth X5 days X2 * Blood cultures (09/07) during dialysis: no growth X5 days X2 * Sacral Ulcer (09/14/17): VRE and Germania Albicans * Sacral Ulcer (09/15/17): VRE and Germania Albicans * Sacral Ulcer (09/20/17): VRE and Germania Albicans * Bone Scan performed 09/17/17 to check for Osteomyelitis at the Sacrum: negative for osteomyelitis * c/w Tigecycline (09/16/17; Day 17): which will cover the VRE in Sacral Wound Culture 09/14/17 and repeat on 09/20/17-->will follow-up to see if new culture can be taken * c/w Diflucan 200 mg PO 1x/day (09/13/17; Day 20): which will cover with Yeast in the Sputum, Urine, and Sacral Wound Culture-->will f/u with ID when to stop * Procalcitionin: 8.60 (09/06/17)-->5.80 (10/240-->will order for procalcitonin tomorrow Status: Acute (6) Pneumonia Assessment and Plan: * Pulmonary (Dr. Mena) on board-->help appreciated * Infectious Disease (Dr. Lawrence)-->help appreciated * Chest xray (08/26): right arm PICC is seen with the tip of distal subclavian vein. PICC may be used * Rapid A strep, Influenza A and B studies, Urine Legionella, Mycoplasma studies = Negative * Florastor 250mg PO bid * 08/07/17: +Strep Pneumoniae in the urine * Meropenem 500mg IV Q 8 hours (08/14/17 through 08/18/17) and Zosyn 2.25 mg IV Q6H (08/13/17 through 08/18/17) * Cefepime 1 gm IV Q24H: started on 08/19/17 and was discontinued by ID Dr. Lawrence on 08/30/17: monitor vitals and labs * s/p right posterior chest tube 08/19-08/24 * Sputum Culture 08/19/17 shows No growth * Pleural fluid 08/19/17: No growth * 09/07/17 Sputum: Enterocloace Bacter and Yeast Species: See Antibiotic treatment in previous Assessment and Plan * Sputum 09/10/17 shows NO AFB Status: Acute (7) HTN (hypertension) Assessment and Plan: * Lopressor 50mg PO bid * Lisinopril 5mg PO daily Status: Chronic (8) CKD (chronic kidney disease) on Dialysis Assessment and Plan: * Dr. Miranda (nephrology) consulted on the case * Hx of CKD-->Started on dialysis 08/15/17 * Kurtis catheter placed and removed 08/22 * s/p Right Chest Permcath 08/22 * Patient is on dialysis M-W-F; oliguric * Phoslo 1334mg GT TID * Epoetin 10,000 unit IV MWF Status: Chonic (9) Diabetes mellitus Assessment and Plan: * Accuchecks Q6H * HgbA1c 8.4 * Started peg feedings on 08/26/17 * Nepro-->50 ml/hour but this was held 09/13/17 due suspicion of Bowel Obstruction as NO bowel Movement since 09/07/17. This was restarted on after NO obstruction was observed on Obstruction Series 09/13/17 and after multiple bowel movement s/p Fleet Enema 09/13/17 (10) HLD (hyperlipidemia) Assessment and Plan: * LFTS have normalized; will restart statin 09/20/17 Status: Chronic (11) Anemia Assessment and Plan: * Heme-oncology (Dr. Giles bender) on board-->help appreciated * Likely iron deficiency anemia based on prior admissions * Ferritin 27.4, Iron 22, TIBC 322, % Saturation 7 * Ferric Sodium Gluconate 125mg IVPB daily (active 08/08-08/16) * Procrit 10,000 units M-W- * Monitor Hgb/Hct: stable Status: Chronic (12) History of DVT (deep vein thrombosis) Assessment and Plan: * Patient was previously on Eliquis for a prior history of DVT. * Repeat dopplers 08/09/17 are negative for DVT * Off Heparin Drip 08/17/17 * Started Eliquis 2.5mg PO BID for atrial flutter and history of DVT Status: Chronic (13) UTI Assessment and Plan: * Infectious disease (Dr. Lawrence) on board-->help appreciated * Exchange jaquez out and repeat urine cultures * Urine Culture 08/12/17 showed Gram Negative Rods: NO identification and NO sensitivities were performed * Meropenem 500mg IV Q 12hours (active since 08/14/17 through 08/18/17) to cover for UTI per ID * Repeat Urine Culture 08/18/17 shows NO growth * 08/25: reculture in light of leukocytosis * 08/27: pending urine studies * 08/30: Urine Culture 08/27/17 showed Yeast Species but no antifungal at that time secondary to recent history of Elevated LFTs * Urine Culture 09/13/17 showed Yeast Species: he is on Diflucan Status: Chronic (14) Confusion; Alzheimer's Dementia Assessment and Plan: * Per daughter, patient has been getting bouts of confusion over the past year but appears at baseline. Patient has not seen formal neurology as outpatient per daughter. Per , prior to event, noted Alzheimers' disease dx one year ago * CT head w/o contrast (08/10/17):acute os subacute lacune infarct is not excluded in the left basal ganglia inferiorly with definitive chronic lacune identified in the right basal ganglia superiorly. No acute or subacute lobar brain infarction is appreciable by standard CT criteria. Mild age-related neuro degenerative changes are identifed. No acute intracranial hemorrhage or mass is identified throughout * 08/26: Off Sedation-->patient moves all extremities randomly but does not follow directions * 08/27: off sedation-->patient is very calm, smiles at his * 08/28: off sedation-->patient is very calm Status: Chronic (15) Unstageable Sacral Ulcer, Left Ear Auricle Ulcer, Right Heal Ulcer Assessment and Plan: * Wound care on board * WOUND CARE [id number] patients sacral ulcer. Base softening up. Must continue medi-honey (nickel thick) then cover with a bordered dressing to be done daily. Patient must be repositioned frequently to optimize offloading of sacral region. Right heel is dark purple in color. Must continue to elevate both heels at all times to optimize heel offloading. Hemoglobin-9.6, Marshal of 14. Patient continues to be at risk for skin breakdown. will continue to follow. 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/14/17): VRE and Germania Albicans * Sacral Ulcer (09/15/17): VRE and Germania Albicans * Sacral Ulcer (09/20/17): VRE and Germania Albicans * Bone Scan performed 09/17/17 to check for Osteomyelitis at the Sacrum: negative for osteomyeliti * Daily wound care and dressing change by medicine team; healing appropriately Antibiotics * c/w Tigecycline (09/16/17; Day 17): which will cover the VRE in Sacral Wound Culture 09/14/17 and repeat on 09/20/17-->will follow-up to see if new culture can be taken * c/w Diflucan 200 mg PO 1x/day (09/13/17; Day 20): which will cover with Yeast in the Sputum, Urine, and Sacral Wound Culture-->will f/u with ID when to stop * Procalcitionin: 8.60 (09/06/17)-->5.80 (-->will order for procalcitonin tomorrow Status: Acute (16) Elevated LFTs Assessment and Plan: * Have normalized * Currently on Diflucan since 09/13/17 * Will restart patient's statin (17). Hx Constipation * Monitor bowel movement * 09/25/17 had bowel movement today (18). Hyponatremia * 09/19/17: at 127 monitor for now (19). Prophylactic measure Assessment and Plan: * Pepcid 20mg PO daily * Start Eliquis 2.5mg PO BID * s/p peg placement 08/25 * s/p trachesostomy 08/22 * s/p Permcath placement 08/22 removal Kurtis catheter * s/p right posterior chest tube 08/19-->removed 08/24 * s/p Right Arm PICC 08/26 * Passy Flex Trach placed 09/15 * (Jovita Serrano): -->number provided to the nurse- ->consented for peg placement; discussed about LTAC 08/26 * Spoke with Dr. Pickard, PMD regarding patient's hospitalization up until 08/26 Disposition: * Awaiting from case management in regards to discharge to subacute rehab-- Possible discharge for Tuesday * Will need to follow-up with infectious disease regarding * c/w Tigecycline (09/16/17; Day 17): which will cover the VRE in Sacral Wound Culture 09/14/17 and repeat on 09/20/17-->will follow-up to see if new culture can be taken * c/w Diflucan 200 mg PO 1x/day (09/13/17; Day 20): which will cover with Yeast in the Sputum, Urine, and Sacral Wound Culture-->will f/u with ID when to stop * Will need to f/u with general surgery regarding heel ulcer * Will need to see if new sacral culture can be take
[2017-10-03] MEDS ORDERED: Ferric Sodium Gluconat Complex 62.5 mg/5 ml Vial IVPB SCH (10:00)
--- NOTE | 2017-10-03 11:47 | CP.PCM.PN ---
Subjective - Date & Time of Evaluation Date of Evaluation: 10/03/17 Time of Evaluation: 11:44 - Subjective Subjective: SEenon dialysis- tolerating well BP normally low TRy to UF 1500 ml Same trach collar No other new events Objective - Vital Signs/Intake and Output Vital Signs (last 24 hours): Temp Pulse Resp BP Pulse Ox 97.9 F 97 H 20 102/49 L 95 10/03/17 10:00 10/03/17 10:00 10/03/17 10:00 10/03/17 11:00 10/03/17 10:00 Intake and Output: 10/03/17 10/03/17 06:59 18:59 Intake Total 300 Balance 300 - Medications Medications: Current Medications Acetylcysteine (Acetylcysteine 20%) 4 ml INH RQ6 [facility] Last Admin: 10/03/17 07:19 Dose: 4 ml Albuterol/Ipratropium (Duoneb 3 Mg/0.5 Mg (3 Ml) Ud) 3 ml INH RQ6 [facility] Last Admin: 10/03/17 07:19 Dose: 3 ml Apixaban (Eliquis) 2.5 mg PO BID [facility] Last Admin: 10/02/17 18:58 Dose: 2.5 mg Aspirin (Aspirin Chewable) 81 mg PO DAILY [facility] Last Admin: 10/02/17 10:56 Dose: 81 mg Calcium Acetate (Phoslo) 1,334 mg GT TID [facility] Last Admin: 10/02/17 18:58 Dose: 1,334 mg Epoetin Chencho (Procrit) 10,000 unit IV [facility] Famotidine (Pepcid) 20 mg PO DAILY [facility] Last Admin: 10/02/17 10:56 Dose: 20 mg Ferric Sodium Gluconate Complex (Ferrlecit) 125 mg IVPB DAILY [facility] Stop: 10/11/17 10:01 Last Admin: 10/03/17 11:41 Dose: 125 mg Fluconazole (Diflucan) 100 mg PO DAILY [facility] Last Admin: 10/02/17 10:56 Dose: 100 mg Heparin Sodium (Porcine) (Heparin) 3,700 units IVP MWF [facility] Last Admin: 10/03/17 11:42 Dose: 3,700 units Tigecycline 50 mg/ Dextrose 100 mls @ 100 mls/hr IVPB Q12H [facility] Last Admin: 10/02/17 21:02 Dose: Not Given Insulin Aspart (Novolog) 0 unit SC Q6 [facility] PRN Reason: Protocol Last Admin: 10/03/17 06:26 Dose: 3 unit Metoprolol Tartrate (Lopressor) 50 mg PO BID [facility] Last Admin: 10/02/17 18:58 Dose: 50 mg Rosuvastatin Calcium (Crestor) 10 mg PO HS [facility] Last Admin: 10/02/17 22:42 Dose: Not Given Rosuvastatin Calcium (Crestor) 10 mg PO [facility] Last Admin: 10/02/17 22:48 Dose: 10 mg Saccharomyces Boulardii (Florastor) 250 mg PO BID [facility] Last Admin: 10/02/17 18:58 Dose: 250 mg - Labs Labs: 10/02/17 07:11 10/02/17 07:11 PT 13.9 SECONDS (9.7-12.2) H 08/24/17 06:08 INR 1.2 08/24/17 06:08 APTT 55 SECONDS (21-34) H D 08/17/17 06:12 - Constitutional Appears: No Acute Distress, Chronically Ill - Head Exam Head Exam: ATRAUMATIC, NORMAL INSPECTION - Eye Exam Eye Exam: EOMI, Normal appearance - Neck Exam Neck Exam: Normal Inspection. absent: Tenderness - Respiratory Exam Respiratory Exam: Clear to Ausculation Bilateral, NORMAL BREATHING PATTERN - Cardiovascular Exam Cardiovascular Exam: REGULAR RHYTHM, +S1 - GI/Abdominal Exam GI & Abdominal Exam: Soft. absent: Tenderness - Extremities Exam Extremities Exam: Normal Inspection. absent: Tenderness - Neurological Exam Neurological Exam: Altered, Motor Sensory Deficit - Skin Skin Exam: Dry, Warm Assessment and Plan (1) Acute on chronic renal failure Status: Resolved (2) CAD (coronary artery disease) Status: Chronic (3) CHF exacerbation Status: Chronic (4) Type 2 diabetes mellitus with diabetic nephropathy Status: Acute (5) Cardiorenal disease Status: Acute (6) ESRD (end stage renal disease) Status: Acute - Assessment and Plan (Free Text) Plan: SAme dialysis MWF IV ABs as per ID
[2017-10-03] MEDS: Saccharomyces Boulardi 250 mg Cap PO SCH ×2 (17:18→17:45)
--- NOTE | 2017-10-03 17:21 | CP.PCM.PN ---
Subjective - Date & Time of Evaluation Date of Evaluation: 10/03/17 Time of Evaluation: 09:25 - Subjective Subjective: the patient seen and examined Seen during hemodialysis No shortness of breath On trach collar Awake Afebrile Objective - Vital Signs/Intake and Output Vital Signs (last 24 hours): Temp Pulse Resp BP Pulse Ox 97.6 F 91 H 20 119/54 L 98 10/03/17 15:25 10/03/17 15:42 10/03/17 15:25 10/03/17 15:25 10/03/17 15:25 Intake and Output: 10/03/17 10/03/17 06:59 18:59 Intake Total 300 Balance 300 - Medications Medications: Current Medications Acetylcysteine (Acetylcysteine 20%) 4 ml INH RQ6 [facility] Last Admin: 10/03/17 13:04 Dose: Not Given Albuterol/Ipratropium (Duoneb 3 Mg/0.5 Mg (3 Ml) Ud) 3 ml INH RQ6 [facility] Last Admin: 10/03/17 13:04 Dose: Not Given Apixaban (Eliquis) 2.5 mg PO BID [facility] Last Admin: 10/02/17 18:58 Dose: 2.5 mg Aspirin (Aspirin Chewable) 81 mg PO DAILY [facility] Last Admin: 10/03/17 16:25 Dose: 81 mg Calcium Acetate (Phoslo) 1,334 mg GT TID [facility] Last Admin: 10/02/17 18:58 Dose: 1,334 mg Epoetin Chencho (Procrit) 10,000 unit IV [facility] Famotidine (Pepcid) 20 mg PO DAILY [facility] Last Admin: 10/03/17 16:25 Dose: 20 mg Ferric Sodium Gluconate Complex (Ferrlecit) 125 mg IVPB DAILY [facility] Stop: 10/11/17 10:01 Last Admin: 10/03/17 11:41 Dose: 125 mg Fluconazole (Diflucan) 100 mg PO DAILY [facility] Last Admin: 10/02/17 10:56 Dose: 100 mg Heparin Sodium (Porcine) (Heparin) 3,700 units IVP MWF [facility] Last Admin: 10/03/17 11:42 Dose: 3,700 units Tigecycline 50 mg/ Dextrose 100 mls @ 100 mls/hr IVPB Q12H [facility] Last Admin: 10/02/17 21:02 Dose: Not Given Insulin Aspart (Novolog) 0 unit SC Q6 [facility] PRN Reason: Protocol Last Admin: 10/03/17 06:26 Dose: 3 unit Metoprolol Tartrate (Lopressor) 50 mg PO BID [facility] Last Admin: 10/02/17 18:58 Dose: 50 mg Rosuvastatin Calcium (Crestor) 10 mg PO HS [facility] Last Admin: 10/02/17 22:42 Dose: Not Given Rosuvastatin Calcium (Crestor) 10 mg PO [facility] Last Admin: 10/02/17 22:48 Dose: 10 mg Saccharomyces Boulardii (Florastor) 250 mg PO BID [facility] Last Admin: 10/02/17 18:58 Dose: 250 mg - Labs Labs: 10/02/17 07:11 10/02/17 07:11 PT 13.9 SECONDS (9.7-12.2) H 08/24/17 06:08 INR 1.2 08/24/17 06:08 APTT 55 SECONDS (21-34) H D 08/17/17 06:12 - Head Exam Head Exam: ATRAUMATIC, NORMOCEPHALIC - Eye Exam Eye Exam: Normal appearance - ENT Exam ENT Exam: Mucous Membranes Moist - Neck Exam Neck Exam: Full ROM - Respiratory Exam Respiratory Exam: Rales - Cardiovascular Exam Cardiovascular Exam: REGULAR RHYTHM - GI/Abdominal Exam GI & Abdominal Exam: Soft, Normal Bowel Sounds - Extremities Exam Extremities Exam: Normal Inspection Assessment and Plan (1) Cardiac arrest Assessment & Plan: status post tracheostomy on trach collar Continue nebulizer treatment Continue antibiotics and hemodialysis Will attempt decannulation Status: Acute (2) Pneumonia Status: Acute (3) History of DVT (deep vein thrombosis) Status: Acute (4) CKD (chronic kidney disease) Status: Chronic (5) Acute on chronic renal failure Status: Resolved (6) CHF (congestive heart failure) Status: Acute
[2017-10-03] MEDS: Tigecycline 50 MG in Dextrose 5% In Water 100 ML IVPB SCH (21:09)
[2017-10-04] MEDS: (Novolog) Insulin Aspart, Recombinant 100 u/ml 10 ml vial SC SCH ×4 (00:30→18:26)
[2017-10-04] MEDS: Albuterol-Ipratrop 3 mg / 0.5 (3 ml) UD INH SCH ×4 (01:28→20:33)
[2017-10-04] MEDS: Acetylcysteine 20% Inhal Soln (4ml) INH SCH ×4 (01:28→20:33)
[2017-10-04 08:10] LABS: BASO # 0.1 K/uL (0.0-0.2); BASO % 0.6 % (0.0-2.0); EOS # 0.1 K/uL (0.0-0.7); EOS % 0.7 % (0.0-4.0); HEMATOCRIT 30.5 % (35.0-51.0); LYMPH # 2.3 K/uL (1.0-4.3); LYMPH % 15.3 % (20.0-40.0); MEAN CELL VOLUME 80.6 fL (80.0-94.0); MEAN PLATELET VOLUME 9.3 fL (7.2-11.7); MONO # 1.2 K/uL (0.0-0.8); NRBC % 0.1 % (0.0-2.0); RED CELL DISTRIBUTION WIDTH 24.5 % (11.5-14.5); WHITE BLOOD COUNT 15.1 K/uL (4.8-10.8)
[2017-10-04 08:42] LABS: POTASSIUM 3.8 mmol/L (3.6-5.2)
[2017-10-04 08:44] LABS: ALB/GLOB RATIO 0.7 (1.0-2.1); BILIRUBIN,TOTAL 0.7 mg/dL (0.2-1.3); TOTAL PROTEIN 6.2 g/dL (6.3-8.3)
[2017-10-04 08:45] LABS: CALCIUM 8.6 mg/dl (8.6-10.4); MAGNESIUM 2.2 mg/dL (1.6-2.3); PHOSPHOROUS 4.6 mg/dL (2.5-4.5)
[2017-10-04] MEDS: Saccharomyces Boulardi 250 mg Cap PO SCH ×2 (11:08→18:26)
[2017-10-04] MEDS: Tigecycline 50 MG in Dextrose 5% In Water 100 ML IVPB SCH ×2 (13:05→21:15)
--- NOTE | 2017-10-04 14:18 | CP.PCM.PN ---
Subjective - Date & Time of Evaluation Date of Evaluation: 10/04/17 Time of Evaluation: 14:16 - Subjective Subjective: seen and examined trach collar bp stable no events unable to obtain ros Objective - Vital Signs/Intake and Output Vital Signs (last 24 hours): Temp Pulse Resp BP Pulse Ox 97.8 F 80 20 118/60 96 10/04/17 07:56 10/04/17 07:56 10/04/17 07:56 10/04/17 07:56 10/04/17 07:56 Intake and Output: 10/04/17 10/04/17 06:59 18:59 Intake Total 500 Balance 500 - Medications Medications: Current Medications Acetylcysteine (Acetylcysteine 20%) 4 ml INH RQ6 [facility] Last Admin: 10/04/17 13:15 Dose: 4 ml Albuterol/Ipratropium (Duoneb 3 Mg/0.5 Mg (3 Ml) Ud) 3 ml INH RQ6 [facility] Last Admin: 10/04/17 13:15 Dose: 3 ml Apixaban (Eliquis) 2.5 mg PO BID [facility] Last Admin: 10/04/17 11:07 Dose: 2.5 mg Aspirin (Aspirin Chewable) 81 mg PO DAILY [facility] Last Admin: 10/04/17 11:07 Dose: 81 mg Calcium Acetate (Phoslo) 1,334 mg GT TID [facility] Last Admin: 10/04/17 13:04 Dose: 1,334 mg Epoetin Chencho (Procrit) 10,000 unit IV MWF [facility] Famotidine (Pepcid) 20 mg PO DAILY [facility] Last Admin: 10/04/17 11:07 Dose: 20 mg Ferric Sodium Gluconate Complex (Ferrlecit) 125 mg IVPB DAILY@1600 [facility] Stop: 10/12/17 16:01 Fluconazole (Diflucan) 100 mg PO DAILY [facility] Last Admin: 10/04/17 11:07 Dose: 100 mg Heparin Sodium (Porcine) (Heparin) 3,700 units IVP MWF [facility] Last Admin: 10/03/17 11:42 Dose: 3,700 units Tigecycline 50 mg/ Dextrose 100 mls @ 100 mls/hr IVPB Q12H [facility] Last Admin: 10/04/17 13:05 Dose: 100 mls/hr Insulin Aspart (Novolog) 0 unit SC Q6 [facility] PRN Reason: Protocol Last Admin: 10/04/17 13:07 Dose: 1 unit Metoprolol Tartrate (Lopressor) 50 mg PO BID [facility] Last Admin: 10/04/17 11:07 Dose: 50 mg Rosuvastatin Calcium (Crestor) 10 mg PO HS [facility] Last Admin: 10/03/17 21:09 Dose: 10 mg Rosuvastatin Calcium (Crestor) 10 mg PO HS [facility] Last Admin: 10/03/17 21:10 Dose: Not Given Saccharomyces Boulardii (Florastor) 250 mg PO BID [facility] Last Admin: 10/04/17 11:08 Dose: 250 mg - Labs Labs: 10/04/17 08:00 10/04/17 08:00 PT 13.9 SECONDS (9.7-12.2) H 08/24/17 06:08 INR 1.2 08/24/17 06:08 APTT 55 SECONDS (21-34) H D 08/17/17 06:12 - Constitutional Appears: Non-toxic, No Acute Distress, Confused - Head Exam Head Exam: NORMAL INSPECTION - Eye Exam Eye Exam: Normal appearance Pupil Exam: PERRL - ENT Exam ENT Exam: Mucous Membranes Dry - Neck Exam Neck Exam: Normal Inspection (trach collar) - Respiratory Exam Respiratory Exam: Decreased Breath Sounds - Cardiovascular Exam Cardiovascular Exam: REGULAR RHYTHM, RRR - GI/Abdominal Exam GI & Abdominal Exam: Distended, Soft - Extremities Exam Extremities Exam: Normal Inspection - Neurological Exam Neurological Exam: Altered Assessment and Plan (1) Acute on chronic renal failure Status: Resolved (2) CHF (congestive heart failure) Status: Acute (3) History of DVT (deep vein thrombosis) Status: Acute (4) CAD (coronary artery disease) Status: Chronic (5) CKD (chronic kidney disease) Status: Chronic - Assessment and Plan (Free Text) Assessment: hd mwf jina w/ hd
--- NOTE | 2017-10-04 14:54 | CP.PCM.PN ---
<Sina White - Last Filed: 10/04/17 14:54> Subjective - Date & Time of Evaluation Date of Evaluation: 10/04/17 Time of Evaluation: 14:53 - Subjective Subjective: Medicine Progress Note for Dr. Lazar HPI: Patient seen and examined at bedside. More awake and alert. ROS unattainable. Objective - Vital Signs/Intake and Output Vital Signs (last 24 hours): Temp Pulse Resp BP Pulse Ox 97.8 F 80 20 118/60 96 10/04/17 07:56 10/04/17 07:56 10/04/17 07:56 10/04/17 07:56 10/04/17 07:56 Intake and Output: 10/04/17 10/04/17 06:59 18:59 Intake Total 500 Balance 500 - Medications Medications: Current Medications Acetylcysteine (Acetylcysteine 20%) 4 ml INH RQ6 [facility] Last Admin: 10/04/17 13:15 Dose: 4 ml Albuterol/Ipratropium (Duoneb 3 Mg/0.5 Mg (3 Ml) Ud) 3 ml INH RQ6 [facility] Last Admin: 10/04/17 13:15 Dose: 3 ml Apixaban (Eliquis) 2.5 mg PO BID [facility] Last Admin: 10/04/17 11:07 Dose: 2.5 mg Aspirin (Aspirin Chewable) 81 mg PO DAILY [facility] Last Admin: 10/04/17 11:07 Dose: 81 mg Calcium Acetate (Phoslo) 1,334 mg GT TID [facility] Last Admin: 10/04/17 13:04 Dose: 1,334 mg Epoetin Chencho (Procrit) 10,000 unit IV [facility] Famotidine (Pepcid) 20 mg PO DAILY [facility] Last Admin: 10/04/17 11:07 Dose: 20 mg Ferric Sodium Gluconate Complex (Ferrlecit) 125 mg IVPB DAILY@1600 [facility] Stop: 10/12/17 16:01 Fluconazole (Diflucan) 100 mg PO DAILY [facility] Last Admin: 10/04/17 11:07 Dose: 100 mg Heparin Sodium (Porcine) (Heparin) 3,700 units IVP MWF [facility] Last Admin: 10/03/17 11:42 Dose: 3,700 units Tigecycline 50 mg/ Dextrose 100 mls @ 100 mls/hr IVPB Q12H [facility] Last Admin: 10/04/17 13:05 Dose: 100 mls/hr Insulin Aspart (Novolog) 0 unit SC Q6 [facility] PRN Reason: Protocol Last Admin: 10/04/17 13:07 Dose: 1 unit Metoprolol Tartrate (Lopressor) 50 mg PO BID [facility] Last Admin: 10/04/17 11:07 Dose: 50 mg Rosuvastatin Calcium (Crestor) 10 mg PO HS [facility] Last Admin: 10/03/17 21:09 Dose: 10 mg Rosuvastatin Calcium (Crestor) 10 mg PO HS [facility] Last Admin: 10/03/17 21:10 Dose: Not Given Saccharomyces Boulardii (Florastor) 250 mg PO BID [facility] Last Admin: 10/04/17 11:08 Dose: 250 mg - Labs Labs: 10/04/17 08:00 10/04/17 08:00 PT 13.9 SECONDS (9.7-12.2) H 08/24/17 06:08 INR 1.2 08/24/17 06:08 APTT 55 SECONDS (21-34) H D 08/17/17 06:12 - Additional Findings Additional findings: - Constitutional Appears: Chronically Ill - Head Exam Head Exam: ATRAUMATIC, NORMAL INSPECTION, NORMOCEPHALIC - Eye Exam Eye Exam: EOMI Pupil Exam: NORMAL ACCOMODATION - ENT Exam ENT Exam: Mucous Membranes Moist - Neck Exam Additional comments: trach, blood in trach collar - Respiratory Exam Respiratory Exam: Clear to Ausculation Bilateral, NORMAL BREATHING PATTERN - Cardiovascular Exam Cardiovascular Exam: REGULAR RHYTHM, tachycardic - GI/Abdominal Exam GI & Abdominal Exam: Soft, Normal Bowel Sounds. absent: Distended, Tenderness - Extremities Exam Extremities Exam: absent: Joint Swelling, Tenderness - Back Exam Additional comments: 10x10 unstageable ulcer with healthy granulation tissue. No necrotic tissue. optifoam dressing with medihoney. Clear dry and intact - Neurological Exam Neurological Exam: Alert, Awake - Psychiatric Exam Psychiatric exam: Normal Affect, Normal Mood - Skin Skin Exam: Dry, Intact, Normal Color, Warm Additional comments: Bruising on b/l hips; eschar on the base of the anterior right thumb Assessment and Plan - Assessment and Plan (Free Text) Assessment: (1) Acute Respiratory Failure ARDS Cardiac Arrest Pulmonary Edema Nonstemi Assessment and Plan: * Code Blue on 08/10: asystole, cardiopulmonary resuscitative measures initiated , requiring 3 epis, bicarbonate, ROSC achieved and intubated and brought to the ICU for further management; Patient in the ICU from 08/10 until present. * Pulmonary: Dr Mena (Dr. Jeffers covering until 09/04/17)-->help appreciated * Cardiology: Dr. Cortés on board-->help appreciated * GI (Dr. Wills) on board-->help appreciated * S/P Tracheostomy 08/22 * S/P Peg tube placement 08/25 * s/p insertion of right posterior chest tube 08/19-->removed 08/24/17 * There was consideration for possible thoracentesis of left side pleural effusion, evaluated by IR, there is no fluid to drain per Dr. Gross * Chest xray (08/26): right arm PICC is seen with the tip of distal subclavian vein. PICC may be used * Per cardiology, * Restart Aspirin 81mg PO daily * Patient does not need Plavix at this time * Recommend for Eliquis 2.5mg PO BID for atrial flutter * 08/27: patient is pending LTAC, he went eventually need cardiac catheterization when he has stabilized. Held statin secondary to elevated LFTs. Discussed with Dr. Cortés, lowered Amiodarone 200mg PO daily * 08/28: patient is pending LTAC, he went eventually need cardiac catheterization when he has stabilized. Liver function tests improving * 08/29: [facility] has sent request to insurance for authorization for LTAC-->pending * 09/06: pending social work/case management approval for LTAC * 09/07: pending social work/case management approval for LTAC * 09/08: Unable to get approval for LTAC; pending other options * 09/09: Transferred from step-down ICU to the floors * 09/13: Trasnferred back to ICU S/P Rapid Response for low blood pressure * 09/14: Currently on Acetylcysteine 20 % Neb Q6H and Duoneb Q6H * 09/15: Passy [place] Trach placed by Hedis Review Nurse (2) Abnormal Stress Test History of AICD History of Coronary Artery Disease Assessment and Plan: * Cardiology (Dr. Cortés) on board-->help appreciated * TSH: 1.16; T4: 1.53 * Echocardiogram (08/08/17): left ventricle systolic function is severely impaired. EF: 25-30%; global hypokinesis of left ventricle mild aortic regurgitation. Mitral regurgitation is moderate. Moderate-severe pulmonary hypertension * Plan was for cardiac catheterization; delayed due to acute renal failure; Attempted gentle hydration and mucomyst on 08/09 to optimize prior to cath * On 08/10, patient was in asystole, ACLS protocol, ROSC achieved, intubated and transfered to the ICU. Patient in acute pulmonary edema. * Patient hospitalized in the ICU since 08/10/17 to present. * Medications: * Aspirin 81mg PO daily * Plavix d/c by cardiology * Lopressor 50mg PO bid * d/c Crestor 10mg POqHS secondary to rise in LFTS 08/27--->monitor LFTs daily * ARB d/c secondary to acute renal failure * 08/27: patient is pending LTAC, he went eventually need cardiac catheterization when he has stabilized. Held statin secondary to elevated LFTs. Discussed with Dr. Cortés, lowered Amiodarone 200mg PO daily * 08/28: He will eventually need cardiac catheterization when he has stabilized. Liver function tests improving. Statin is on hold (3) Atrial flutter Assessment and Plan: * Cardiology (Dr. Cortés) on board-->help appreciated * Refractory to Lopressor/Cardizem IVP * Eliquis 2.5mg PO bid * Amiodarone bolus-->Amiodarine drip on 08/24-->converted to Amiodarone 200mg PO TID on 08/26 and this was decreased to 200 mg 1x/day due to increased LFTs * 08/27: Discussed with Dr. Cortés, will lower Amiodarone 200mg PO daily and monitor LFTs. Statin held and tylenol d/c * 08/29: patient is pending LTAC, he will eventually need cardiac catheterization when he has stabilized. Liver function tests improving. Statin is on hold due to the elevated LFTs * 08/30: Cardiology discontinued the Amiodarone * 09/07: Held eliquis; will need to resume * 09/09: Eliquis resumed, off Amiodarone Status: Acute (4) Acute on Chronic Systolic CHF exacerbation Assessment and Plan: * Cardiology (Dr. Cortés) on board-->help appreciated * Transferred to the ICU on 08/10 following cardiac arrest and intubation. * Echocardiogram (08/08/17): left ventricular systolic function is severely impaired. EF: 25-30%; global hypokinesis of left ventricle mild aortic regurgitation. Mitral regurgitation is moderate. Moderate-severe pulmonary hypertension * Medications: * Aspirin 81mg PO daily * Plavix d/c by cardiology * Lopressor 50mg PO bid * d/c Crestor 10mg POqHS on 08/27 secondary to rise in LFTs * ARB d/c secondary to acute renal failure Status: Acute (5) Leukocytosis Assessment and Plan: * Patient's white count downtrending * Pleural Fluid 08/19/17 did not show any growth * Blood cultures (08/26): no growth X5 days * UA and urine culture (08/27): Urine Culture showed Yeast Species. * Patient has elevated LFTs-->did not start anti-fungal in light of LFTs New: * 09/05/17 Blood: gram positive cocci-->pending speciation * 09/05/17 Blood: no growth after 4 days * 09/07/17 Legionella Culture: negative * 09/07/17 Mycobacteria: negative * 09/07/17 Sputum: Enterocloace Bacter; yeast * 09/07/17 Blood: negative X 48 hours * 09/07/17 Blood: negative X 48 hours * 09/06: stool culture pending; has not had diarrhea or bowel movement * 09/07: Dr. Zimmer (covering Dr. Lawrence) to see the patient given elevated procalcitonin * Blood Culture 09/13/17 is negative to date and Urine Culture 09/13/17 showed Yeast Species * 09/14: Could this be secondary to the Septic Shock? Secondary to Osteomyelitis of the Sacrum? 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) and Meropenem 500 mg IV Q8H (09/13/17 through 09/16/17), Diflucan 200 mg PO 1x/day (09/13/17), Bactrim 10 mL PO Q12H (09/12/17 through 09/16/17), Tigecycline 50 mg IV Q12H (09/16/17 started because of VRE on Sacrum Wound Culture 09/14/17) * ESR 09/14/17 elevated at 89 * Bone Scan performed 09/17/17 to check for Osteomyelitis at the Sacrum: results are pending * Meropenem 500 mg IV Q12H (09/13/17 through 09/16/17: which will cover the Enterbacter in the Sputum 09/07/17 and the possibility of Sacral Osteomyelitis) * Antibiotics as of 09/17/17:Tigecycline (09/16/17: which will cover the VRE in Sacral Wound Culture 09/14/17 and the possibility of Sacral Osteomyelitis) and Diflucan 200 mg PO 1x/day (09/13/17: which will cover with Yeast in the Sputum, Urine, and Sacral Wound Culture) Status: Acute (6) Pneumonia Assessment and Plan: * Pulmonary (Dr. Mena) on board-->help appreciated; Dr. Jeffers covering while Dr. Mena away * Infectious Disease (Dr. Lawrence)-->help appreciated * Chest xray (08/26): right arm PICC is seen with the tip of distal subclavian vein. PICC may be used * Rapid A strep, Influenza A and B studies, Urine Legionella, Mycoplasma studies = Negative * Florastor 250mg PO bid * 08/07/17: +Strep Pneumoniae in the urine * Meropenem 500mg IV Q 8 hours (08/14/17 through 08/18/17) and Zosyn 2.25 mg IV Q6H (08/13/17 through 08/18/17) * Cefepime 1 gm IV Q24H: started on 08/19/17 and was discontinued by ID Dr. Lawrence on 08/30/17: monitor vitals and labs * s/p right posterior chest tube 08/19-08/24 * Sputum Culture 08/19/17 shows No growth * Pleural fluid 08/19/17: No growth * 09/07/17 Sputum: Enterocloace Bacter and Yeast Species: See Antibiotic treatment in previous Assessment and Plan * Sputum 09/10/17 shows NO AFB Status: Acute (7) HTN (hypertension) Assessment and Plan: * Lopressor 50mg PO bid * Lisinopril 5mg PO daily Status: Chronic (8) CKD (chronic kidney disease) on Dialysis Assessment and Plan: * Dr. Miranda (nephrology) consulted on the case * Hx of CKD-->Started on dialysis 08/15/17 * Kurtis catheter placed and removed 08/22 * s/p Right Chest Permcath 08/22 * Patient is on dialysis -W-; oliguric * Phoslo 1334mg GT TID * Epoetin 10,000 unit IV MWF Status: Acute (9) Diabetes mellitus Assessment and Plan: * Accuchecks Q6H * HgbA1c 8.4 * Started peg feedings on 08/26/17 * Nepro-->50 ml/hour but this was held 09/13/17 due suspicion of Bowel Obstruction as NO bowel Movement since 09/07/17. This was restarted on after NO obstruction was observed on Obstruction Series 09/13/17 and after multiple bowel movement s/p Fleet Enema 09/13/17 (10) HLD (hyperlipidemia) Assessment and Plan: * 08/27: held Crestor 10 mg PO HS secondary to rise in LFTs * 08/29: Liver function tests improving; waiting to restart statin Status: Chronic (11) Anemia Assessment and Plan: * Heme-oncology (Dr. Giles bender) on board-->help appreciated * Likely iron deficiency anemia based on prior admissions * Ferritin 27.4, Iron 22, TIBC 322, % Saturation 7 * Ferric Sodium Gluconate 125mg IVPB daily (active 08/08-08/16) * Procrit 10,000 units - * Monitor Hgb/Hct: stable Status: Chronic (12) History of DVT (deep vein thrombosis) Assessment and Plan: * Patient was previously on Eliquis for a prior history of DVT. * Repeat dopplers 08/09/17 are negative for DVT * Off Heparin Drip 08/17/17 * Started Eliquis 2.5mg PO BID for atrial flutter and history of DVT Status: Chronic (13) UTI Assessment and Plan: * Infectious disease (Dr. Lawrence) on board-->help appreciated * Exchange jaquez out and repeat urine cultures * Urine Culture 08/12/17 showed Gram Negative Rods: NO identification and NO sensitivities were performed * Meropenem 500mg IV Q 12hours (active since 08/14/17 through 08/18/17) to cover for UTI per ID * Repeat Urine Culture 08/18/17 shows NO growth * 08/25: reculture in light of leukocytosis * 08/27: pending urine studies * 08/30: Urine Culture 08/27/17 showed Yeast Species but no antifungal at that time secondary to recent history of Elevated LFTs * Urine Culture 09/13/17 showed Yeast Species: he is on Diflucan Status: Chronic (14) Confusion; Alzheimer's Dementia Assessment and Plan: * Per daughter, patient has been getting bouts of confusion over the past year but appears at baseline. Patient has not seen formal neurology as outpatient per daughter. Per , prior to event, noted Alzheimers' disease dx one year ago * CT head w/o contrast (08/10/17):acute os subacute lacune infarct is not excluded in the left basal ganglia inferiorly with definitive chronic lacune identified in the right basal ganglia superiorly. No acute or subacute lobar brain infarction is appreciable by standard CT criteria. Mild age-related neuro degenerative changes are identifed. No acute intracranial hemorrhage or mass is identified throughout * 08/26: Off Sedation-->patient moves all extremities randomly but does not follow directions * 08/27: off sedation-->patient is very calm, smiles at his * 08/28: off sedation-->patient is very calm Status: Chronic (15) Unstageable Sacral Ulcer, Left Ear Auricle Ulcer, Right Heal Ulcer Assessment and Plan: * Wound care on board * WOUND CARE NOTE (08/26)-->Pt with a sacral unstageable being treated with medihoney. No changes to dimensions at this time. Also, pt favoring Left side of head and has developed a 1x1 serous filled blister on his left ear. Primary nurse placed duoderm on the ear. Wound care nurse left duoderm in place , and recommends leaving it on until it falls off on its own. Pt has been NPO for several days, new peg inserted yesterday. Will be starting glucerna tube feedings later today. Albumin 3.3 * Turn q 2 hours * medihoney on unstageable ulcer * duoderm on left ear aurical ulcer: this is healed as of 09/15/17 * Prevalon Boots for Right Heal Blister 09/13/17 * 09/02/17: examined with Wound Care Nurse Emeka Samuel and periphery of the Sacral Wound is pink with some bleeding however center is still black and therefore still unstageable. Continue spray with Cavelon followed by thick coating with MediHoney followed by covering with OptiFoam once a day. * 09/03/17: Change of sacral ulcer dressing was performed by me with assitance from Nurse Esmer * 09/04/17: 09/03/17: Change of sacral ulcer dressing was performed by me with assistance from ALEXANDRA Unger * Per wound care note (09/07): sacral ulcer is stable per wound care nurse * 09/14/17: Sacral Ulcer is unstageable and area of blackness fills entire circumference. General Surgery consult placed to see if debridement is necessary. Continue Cavelon [place] followed by paulina thick coating of MediHoney followed by covering with OptiFoam. * 09/15/17: Surgery Team debrided Sacral Ulcer and Bone Scan will need to be followed up which was performed 09/17/17 * 09/18/17: With the help of Nurse Guzman, applied Cavelon [place] followed by thick coating of MediHoney followed by covering with OptiFoam * 09/19/17: Dressing for Sacral Ulcer already changed before my exam. Explained to Nurse Guzman that best application of MediHoney would be to cover the padding of the OptiFoam with it and then apply the OptiFoam to the ulcer. Status: Acute (16) Elevated LFTs Assessment and Plan: * 08/27: Yina * Discussed with cardiology-->changed amiodarone 200mg PO tid to amiodaron 200mg PO daily * D/C tylenol * Held Statin * patient is also on Rocephin to cover for pneumonia * Will not start antifungal * 08/29: starting to down trending since change in amiodarone dose; awaiting to restart statin * 08/30: continues to trend down. Amiodarone was discontinued * 09/01: AST, ALT, Alk Phos still elevated but stable * 09/02: AST, ALT, Alk Phos still elevated but stable * 09/03: LFTs stable * 09/04: LFTs stable Status: Acute (17). Hx Constipation * Monitor bowel movement * Multiple bowel movements on 09/13/17 and 09/14/17 that are well formed s/p Fleet Enema on 09/13/17 * 09/15/17: NO bowel movement * 09/16/17: Soft pasty bowel movement * 09/17/17: Soft pasty bowel movement * 09/18/17: NO bowel movement * 09/19/17: ordered one dose of Lactulose 20 gm via PEG as still no bowel movement (18). Hyponatremia * 09/19/17: at 127 monitor for now (19). Prophylactic measure Assessment and Plan: * Pepcid 20mg PO daily * Start Eliquis 2.5mg PO BID * s/p peg placement 08/25 * s/p trachesostomy 08/22 * s/p Permcath placement 08/22 removal Kurtis catheter * s/p right posterior chest tube 08/19-->removed 08/24 * s/p Right Arm PICC 08/26 * (Jovita Serrano): -->number provided to the nurse- ->consented for peg placement; discussed about LTAC 08/26 * Spoke with Dr. Pickard, PMD regarding patient's hospitalization up until this point 08/2609/01/17: Dr. Cullen Barth spoke with the patient's [place] with the assistance of Nurse Beth on 3 tower (as multiple attempts of using [employer] indicated that all of the [place] translators were busy) and explained all of the patient's diagnosises. 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 Her ultimate wish is to take patient to [facility] where their children live. I explained to patient that I would not know how that would be coordinated but that the Social Workers/Pocket Setter Lockstitch at LTAC may be of assistance in this regard. I also informed her that I am not aware of any insurance company that would finance this request. She understands that the patient is awaiting insurance approval for LTAC. 09/01/17 and 09/02/17: Dr. Cullen Barth spoke with Flight Communications Operator Demetria and we are still awaiting insurance authorization for LTAC placement. 09/05/17: Spoke with nehal, geriatric social worker, wean trials sent to LTAC pending approval no word yet regarding approval. Ordered for repeat cultures given uptrend in white count. 09/06/17: pending repeat cultures in light of elevated procalcitonin; ID recommended to reculture. Note: patients PICC lined had clogged ports. Red port remains clogged in spite of cath rafaela. Blue port improved after cath rafaela. Possible may need to remove line to r/o infected line. Strong suspicion due to patient's pneumonia given he has thick secretions. 09/07/17: Infectious disease. pending repeat cultures in light of elevated procalcitonin; Note: patients PICC lined had clogged ports. Red port remains clogged in spite of cath rafaela. Blue port improved after cath rafaela. Hip xray negative for acute fracture. There are no noted falls. 09/08/17: Patient denied for LTAC; awaiting for other options from case management/social work. Resident Daniel spoke with Dr. Cortés, patient be transferred under regular bed, when bed is available. Infectious disease on board; Patient started on IV Vancomycin in light of + blood culture. Pending chest xray. 09/09/17: Patient denied for LTAC; awaiting for other options from case management/social work with kamlesh verdin support. Patient started on IV Vancomycin MWF in light of + blood culture. Pending chest xray. F/U sputum with ID. f/u latest blood cultures. 09/13/17: Rapid response for low blood pressure and elevated WBC likely Septic Shock. Started on Levophed, added Meropenem to Vancomycin and 1 dose of Gentamycin given after speaking with ID. Ordered Obstruction Series as no bowel movement since 09/07/17. F/U Shock Panel. Discussed with ICU Resident to arrange for Change of Right Arm Midline line and Trach Collar. 09/14/17: Will await results of Blood Culture 09/13/17 to determine if the Right Arm Midline, Right Chest Perm Cath, and Trach Collar needs to be changed. Spoke with Flight Communications Operator Demetria in ICU and patient information has been sent to [facility] (they accept patients on Trach) and she is awaiting to hear back from them before submitting approval request to insurance company. 09/15/17: Passy [place] Trach placed by Hedis Review Nurse. Surgical Team for debridement of Sacral Ulcer. Spoke with patient's ([employer] Denisa [id number]) and explained/updated her on patient condition and obtained consent for sacral ulcer debridement. 09/16/17: Still awaiting performance of Sacral Bone Scan 09/17/17: Bone Scan performed and awaiting results 09/18/17: Awaiting Bone Scan Report 09/19/17: Still awaiting Bone Scan Report. Spoke again with Flight Communications Operator Demetria and NO word yet from [facility] or [facility] (they do treat patients with Trachs). 09/20/17: Repeat Wound culture and urine culture sent. Dressing changed with medihoney and optifoam. No other changes at this time. Still waiting for approval for [facility] 09/21/17: No changes at this time. Will continue to change wound dressing Q3D and follow up with case management for for [facility] transfer. 09/22/17: Dressing changed today with medihoney. Healing appropriately. Talked to case management. Still no update from residential transfer. Bone scan negative for osteo. Repeat wound cultures continue to grow Enterococcus. Will follow up sensitivities 09/26/17: Dialysis today. Dressing changed with optifoam and medihoney (nickel thick). VRE/germania in wound. Talked to case management. No updates at this time 09/27/17: dressing changed today with optifoam and medihoney (Nickel thick). Case management says no new information from [facility]. Will update as new information becomes available. 09/28/17: dressing changed today with optifoam and medihoney (Nickel thick). Case management says no new information from [facility]. Will update as new information becomes available. 3x3cm unstageable ulcer on R. heel present. Will talk to surgery for possible bedside debridment. 09/29/17:Talked to case management again today. No new information. Patient is tachycardiac and having blood tinged sputum in his trach collar. Will order a chest xray. 09/30/17: Talked to case management again today. No new information. went for dialysis yesterday due to excess fluid. Changed dressing at bedside today. 10/03/17: Dressing changed daily. Talked to ID on duration of Tigecycline, will evaluate wound. Surgery will also evaluate wound. Accepted at [facility]. Needs 2 days for authorization. Plan discharge on Tuesday10/04/17: Surgery saw and evaluated the wound today. They said no surgical intervention is needed. Talked to case management and still planning for discharge on Tuesday. Will follow up with ID on Tigecyline duration. <Mariangel Lazar V - Last Filed: 10/04/17 19:41> Objective - Vital Signs/Intake and Output Vital Signs (last 24 hours): Temp Pulse Resp BP Pulse Ox 98.2 F 95 H 18 126/58 L 96 10/04/17 16:34 10/04/17 19:18 10/04/17 16:34 10/04/17 16:43 10/04/17 16:34 Intake and Output: 10/04/17 10/05/17 18:59 06:59 Intake Total 480 Balance 480 - Medications Medications: Current Medications Acetylcysteine (Acetylcysteine 20%) 4 ml INH RQ6 [facility] Last Admin: 10/04/17 13:15 Dose: 4 ml Albuterol/Ipratropium (Duoneb 3 Mg/0.5 Mg (3 Ml) Ud) 3 ml INH RQ6 [facility] Last Admin: 10/04/17 13:15 Dose: 3 ml Apixaban (Eliquis) 2.5 mg PO BID [facility] Last Admin: 10/04/17 18:26 Dose: 2.5 mg Aspirin (Aspirin Chewable) 81 mg PO DAILY [facility] Last Admin: 10/04/17 11:07 Dose: 81 mg Calcium Acetate (Phoslo) 1,334 mg GT TID [facility] Last Admin: 10/04/17 18:26 Dose: 1,334 mg Epoetin Chencho (Procrit) 10,000 unit IV [facility] [place] Famotidine (Pepcid) 20 mg PO DAILY [facility] Last Admin: 10/04/17 11:07 Dose: 20 mg Ferric Sodium Gluconate Complex (Ferrlecit) 125 mg IVPB DAILY@1600 [facility] Stop: 10/12/17 16:01 Last Admin: 10/04/17 16:15 Dose: 125 mg Fluconazole (Diflucan) 100 mg PO DAILY [facility] Last Admin: 10/04/17 11:07 Dose: 100 mg Heparin Sodium (Porcine) (Heparin) 3,700 units IVP [facility] Last Admin: 10/03/17 11:42 Dose: 3,700 units Tigecycline 50 mg/ Dextrose 100 mls @ 100 mls/hr IVPB Q12H [facility] Last Admin: 10/04/17 13:05 Dose: 100 mls/hr Insulin Aspart (Novolog) 0 unit SC Q6 [facility] PRN Reason: Protocol Last Admin: 10/04/17 18:26 Dose: 2 unit Metoprolol Tartrate (Lopressor) 50 mg PO BID [facility] Last Admin: 10/04/17 18:26 Dose: 50 mg Rosuvastatin Calcium (Crestor) 10 mg PO HS [facility] Last Admin: 10/03/17 21:10 Dose: Not Given Saccharomyces Boulardii (Florastor) 250 mg PO BID [facility] Last Admin: 10/04/17 18:26 Dose: 250 mg - Labs Labs: 10/04/17 08:00 10/04/17 08:00 PT 13.9 SECONDS (9.7-12.2) H 08/24/17 06:08 INR 1.2 08/24/17 06:08 APTT 55 SECONDS (21-34) H D 08/17/17 06:12 Attending/Attestation - Attestation I have personally seen and examined this patient.: Yes I have fully participated in the care of the patient.: Yes I have reviewed all pertinent clinical information, including history, physical exam and plan: Yes Notes (Text): Patient seen, examined, and case discussed with day-time resident while patient is dialysis. Patient is awake, smiles, but unable to speak secondary to clinical condition. Patient is able to follow directions in terms of when I ask him to lift his arms up he does and when I ask him to smile he can. Will follow-up with pulmonary to see when patient can be decannulate; and for possible voice-valve for speech therapy. Sacral wound is healing; resident abadier discussed with surgery regarding ulcer as well as left heel ulcer no intervention needed. Discussed with case management, pending hepatitis panel needed since patient is first time dialysis for authorization for dialysis. procalcitonin improved to 2.80. Assessment/Plan (1) Acute Respiratory Failure ARDS Cardiac Arrest Pulmonary Edema Nonstemi Assessment and Plan: * Code Blue on 08/10: asystole, cardiopulmonary resuscitative measures initiated , requiring 3 epis, bicarbonate, ROSC achieved and intubated and brought to the ICU for further management; Patient in the ICU from 08/10 until present. * Pulmonary: Dr Mena (Dr. Jeffers covering until 09/04/17)-->help appreciated * Cardiology: Dr. Cortés on board-->help appreciated * GI (Dr. Wills) on board-->help appreciated * S/P Tracheostomy 08/22 * S/P Peg tube placement 08/25 * s/p insertion of right posterior chest tube 08/19-->removed 08/24/17 * Passy [place] Trach placed 09/15 * There was consideration for possible thoracentesis of left side pleural effusion, evaluated by IR, there is no fluid to drain per Dr. Gross * Chest xray (08/26): right arm PICC is seen with the tip of distal subclavian vein. PICC may be used * Chest Xray (09/20/17): lines and tubes stable position, left-sided pacemaker, moderate venous congestion, left basilar opacity with associated small left pleural effusion, Cardiomegaly. Prominent aorta, degenrative changes in spine and shoulders * Medications: * Acetylcysteine 20% 4ml INH RQ6H * Duoneb 3ml INH RQ6H * Aspirin 81mg PO daily * Eliquis 2.5mg PO bid * Lopressor 50mg PO bid * 10/03: pulmonary note: reports attempt at decannulation; will follow-up (2) Abnormal Stress Test History of AICD History of Coronary Artery Disease Assessment and Plan: * Cardiology (Dr. Cortés) on board-->help appreciated * TSH: 1.16; T4: 1.53 * Echocardiogram (08/08/17): left ventricle systolic function is severely impaired. EF: 25-30%; global hypokinesis of left ventricle mild aortic regurgitation. Mitral regurgitation is moderate. Moderate-severe pulmonary hypertension * Plan was for cardiac catheterization; delayed due to acute renal failure; Attempted gentle hydration and mucomyst on 08/09 to optimize prior to cath * On 08/10, patient was in asystole, ACLS protocol, ROSC achieved, intubated and transfered to the ICU. Patient in acute pulmonary edema. * Patient hospitalized and require to and from ICU twice during this admission * Cardiac cath postponed at this time * Medications: * Acetylcysteine 20% 4ml INH RQ6H * Duoneb 3ml INH RQ6H * Aspirin 81mg PO daily * Eliquis 2.5mg PO bid * Lopressor 50mg PO bid * Restart Crestor 5mg POqHS (3) Atrial flutter Assessment and Plan: * Cardiology (Dr. Cortés) on board-->help appreciated * Refractory to Lopressor/Cardizem IVP * Eliquis 2.5mg PO bid * Off Amiodarone per cardiology * c/w Lopressor 50mg PO bid Status: Resolved (4) Acute on Chronic Systolic CHF exacerbation Assessment and Plan: * Cardiology (Dr. Cortés) on board-->help appreciated * Transferred to the ICU on 08/10 following cardiac arrest and intubation. * Echocardiogram (08/08/17): left ventricular systolic function is severely impaired. EF: 25-30%; global hypokinesis of left ventricle mild aortic regurgitation. Mitral regurgitation is moderate. Moderate-severe pulmonary hypertension * Medications: * Aspirin 81mg PO daily * Lopressor 50mg PO bid * ARB d/c secondary to acute renal failure * Restart statin given LFTs normalized Status: Stable (5) Leukocytosis Assessment and Plan: * Pleural Fluid 08/19/17 did not show any growth * Blood cultures (09/13): no growth X5 days X2 * Blood cultures (09/07) during dialysis: no growth X5 days X2 * UA and urine culture (08/27): Yeast Species. * UA and urine culture (09/13): Yeast Species. * Urine culture (09/20: Yeast species * 09/07/17 Legionella Culture: negative * 09/07/17 Mycobacteria: negative * 09/07/17 Sputum: Enterocloace Bacter; yeast * Blood cultures (09/13): no growth X5 days X2 * Blood cultures (09/07) during dialysis: no growth X5 days X2 * Sacral Ulcer (09/14/17): VRE and Germania Albicans * Sacral Ulcer (09/15/17): VRE and Germania Albicans * Sacral Ulcer (09/20/17): VRE and Germania Albicans * Bone Scan performed 09/17/17 to check for Osteomyelitis at the Sacrum: negative for osteomyelitis * c/w Tigecycline (09/16/17; Day 17): which will cover the VRE in Sacral Wound Culture 09/14/17 and repeat on 09/20/17-->will follow-up to see if new culture can be taken * c/w Diflucan 200 mg PO 1x/day (09/13/17; Day 20): which will cover with Yeast in the Sputum, Urine, and Sacral Wound Culture-->will f/u with ID when to stop * Procalcitionin: 8.60 (09/06/17)-->5.80 (-->will order for procalcitonin tomorrow Status: Acute (6) Pneumonia Assessment and Plan: * Pulmonary (Dr. Mena) on board-->help appreciated * Infectious Disease (Dr. Lawrence)-->help appreciated * Chest xray (08/26): right arm PICC is seen with the tip of distal subclavian vein. PICC may be used * Rapid A strep, Influenza A and B studies, Urine Legionella, Mycoplasma studies = Negative * Florastor 250mg PO bid * 08/07/17: +Strep Pneumoniae in the urine * Meropenem 500mg IV Q 8 hours (08/14/17 through 08/18/17) and Zosyn 2.25 mg IV Q6H (08/13/17 through 08/18/17) * Cefepime 1 gm IV Q24H: started on 08/19/17 and was discontinued by ID Dr. Lawrence on 08/30/17: monitor vitals and labs * s/p right posterior chest tube 08/19-08/24 * Sputum Culture 08/19/17 shows No growth * Pleural fluid 08/19/17: No growth * 09/07/17 Sputum: Enterocloace Bacter and Yeast Species: See Antibiotic treatment in previous Assessment and Plan * Sputum 09/10/17 shows NO AFB Status: Acute (7) HTN (hypertension) Assessment and Plan: * Lopressor 50mg PO bid * Lisinopril 5mg PO daily Status: Chronic (8) CKD (chronic kidney disease) on Dialysis Assessment and Plan: * Dr. Miranda (nephrology) consulted on the case * Hx of CKD-->Started on dialysis 08/15/17 * Kurtis catheter placed and removed 08/22 * s/p Right Chest Permcath 08/22 * Patient is on dialysis M-W-F; oliguric * Phoslo 1334mg GT TID * Epoetin 10,000 unit IV MWF Status: Chonic (9) Diabetes mellitus Assessment and Plan: * Accuchecks Q6H * HgbA1c 8.4 * Started peg feedings on 08/26/17 * Nepro-->50 ml/hour but this was held 09/13/17 due suspicion of Bowel Obstruction as NO bowel Movement since 09/07/17. This was restarted on after NO obstruction was observed on Obstruction Series 09/13/17 and after multiple bowel movement s/p Fleet Enema 09/13/17 (10) HLD (hyperlipidemia) Assessment and Plan: * LFTS have normalized; will restart statin 09/20/17 Status: Chronic (11) Anemia Assessment and Plan: * Heme-oncology (Dr. Giles bender) on board-->help appreciated * Likely iron deficiency anemia based on prior admissions * Ferritin 27.4, Iron 22, TIBC 322, % Saturation 7 * Ferric Sodium Gluconate 125mg IVPB daily (active 08/08-08/16) * Procrit 10,000 units -W- * Monitor Hgb/Hct: stable Status: Chronic (12) History of DVT (deep vein thrombosis) Assessment and Plan: * Patient was previously on Eliquis for a prior history of DVT. * Repeat dopplers 08/09/17 are negative for DVT * Off Heparin Drip 08/17/17 * Started Eliquis 2.5mg PO BID for atrial flutter and history of DVT Status: Chronic (13) UTI Assessment and Plan: * Infectious disease (Dr. Lawrence) on board-->help appreciated * Exchange jaquez out and repeat urine cultures * Urine Culture 08/12/17 showed Gram Negative Rods: NO identification and NO sensitivities were performed * Meropenem 500mg IV Q 12hours (active since 08/14/17 through 08/18/17) to cover for UTI per ID * Repeat Urine Culture 08/18/17 shows NO growth * 08/25: reculture in light of leukocytosis * 08/27: pending urine studies * 08/30: Urine Culture 08/27/17 showed Yeast Species but no antifungal at that time secondary to recent history of Elevated LFTs * Urine Culture 09/13/17 showed Yeast Species: he is on Diflucan Status: Chronic (14) Confusion; Alzheimer's Dementia Assessment and Plan: * Per daughter, patient has been getting bouts of confusion over the past year but appears at baseline. Patient has not seen formal neurology as outpatient per daughter. Per , prior to event, noted Alzheimers' disease dx one year ago * CT head w/o contrast (08/10/17):acute os subacute lacune infarct is not excluded in the left basal ganglia inferiorly with definitive chronic lacune identified in the right basal ganglia superiorly. No acute or subacute lobar brain infarction is appreciable by standard CT criteria. Mild age-related neuro degenerative changes are identifed. No acute intracranial hemorrhage or mass is identified throughout * 08/26: Off Sedation-->patient moves all extremities randomly but does not follow directions * 08/27: off sedation-->patient is very calm, smiles at his * 08/28: off sedation-->patient is very calm Status: Chronic (15) Unstageable Sacral Ulcer, Left Ear Auricle Ulcer, Right Heal Ulcer Assessment and Plan: * Wound care on board * WOUND CARE [id number] patients sacral ulcer. Base softening up. Must continue medi-honey (nickel thick) then cover with a bordered dressing to be done daily. Patient must be repositioned frequently to optimize offloading of sacral region. Right heel is dark purple in color. Must continue to elevate both heels at all times to optimize heel offloading. Hemoglobin-9.6, Marshal of 14. Patient continues to be at risk for skin breakdown. will continue to follow. 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/14/17): VRE and Germania Albicans * Sacral Ulcer (09/15/17): VRE and Germania Albicans * Sacral Ulcer (09/20/17): VRE and Germania Albicans * Bone Scan performed 09/17/17 to check for Osteomyelitis at the Sacrum: negative for osteomyeliti * Daily wound care and dressing change by medicine team; healing appropriately Antibiotics * c/w Tigecycline (09/16/17; Day 17): which will cover the VRE in Sacral Wound Culture 09/14/17 and repeat on 09/20/17-->will follow-up to see if new culture can be taken * c/w Diflucan 200 mg PO 1x/day (09/13/17; Day 20): which will cover with Yeast in the Sputum, Urine, and Sacral Wound Culture-->will f/u with ID when to stop * Procalcitionin: 8.60 (09/06/17)-->5.80 (09/20)-->2.80 (10/04) Status: Acute (16) Elevated LFTs Assessment and Plan: * Have normalized * Currently on Diflucan since 09/13/17 * Will restart patient's statin (17). Hx Constipation * Monitor bowel movement * 09/25/17 had bowel movement today (18). Hyponatremia * 09/19/17: at 127 monitor for now (19). Prophylactic measure Assessment and Plan: * Pepcid 20mg PO daily * Start Eliquis 2.5mg PO BID * s/p peg placement 08/25 * s/p trachesostomy 08/22 * s/p Permcath placement 08/22 removal Kurtis catheter * s/p right posterior chest tube 08/19-->removed 08/24 * s/p Right Arm PICC 08/26 * Passy [place] Trach placed 09/15 * (Jovita Serrano): -->number provided to the nurse- ->consented for peg placement; discussed about LTAC 08/26 * Spoke with Dr. Pickard, MARIAJOSE regarding patient's hospitalization up until 08/26 Disposition: * Awaiting from case management in regards to discharge to subacute rehab-- Possible discharge for Tuesday * Will need to follow-up with infectious disease regarding * c/w Tigecycline (09/16/17; Day 17): which will cover the VRE in Sacral Wound Culture 09/14/17 and repeat on 09/20/17-->will follow-up to see if new culture can be taken * c/w Diflucan 200 mg PO 1x/day (09/13/17; Day 20): which will cover with Yeast in the Sputum, Urine, and Sacral Wound Culture-->will f/u with ID when to stop * Will need to f/u with pulm regarding when patient can be decannulated
[2017-10-04] MEDS: Ferric Sodium Gluconat Complex 62.5 mg/5 ml Vial IVPB SCH (16:15)
--- NOTE | 2017-10-04 23:22 | CP.PCM.PN ---
Subjective - Date & Time of Evaluation Date of Evaluation: 10/04/17 Time of Evaluation: 14:50 - Subjective Subjective: No cardiac events noted Physical Examination - Constitutional Appears: Chronically Ill - Head Exam Head Exam: ATRAUMATIC, NORMAL INSPECTION, NORMOCEPHALIC - Eye Exam Eye Exam: EOMI Pupil Exam: NORMAL ACCOMODATION - ENT Exam ENT Exam: Mucous Membranes Moist - Neck Exam Additional comments: trach - Respiratory Exam Respiratory Exam: Clear to Ausculation Bilateral, NORMAL BREATHING PATTERN - Cardiovascular Exam Cardiovascular Exam: REGULAR RHYTHM - GI/Abdominal Exam GI & Abdominal Exam: Soft, Normal Bowel Sounds. absent: Distended, Tenderness - Extremities Exam Extremities Exam: absent: Joint Swelling, Tenderness - Back Exam Additional comments: 10x10 unstageable ulcer with healthy granulation tissue. No necrotic tissue. optifoam dressing with medihoney. Clear dry and intact - Neurological Exam Neurological Exam: Alert, Awake - Psychiatric Exam Psychiatric exam: Normal Affect, Normal Mood - Skin Skin Exam: Dry, Intact, Normal Color, Warm Objective - Vital Signs/Intake and Output Vital Signs (last 24 hours): Temp Pulse Resp BP Pulse Ox 98.2 F 85 18 126/58 L 96 10/04/17 16:34 10/04/17 20:00 10/04/17 16:34 10/04/17 16:43 10/04/17 16:34 Intake and Output: 10/04/17 10/05/17 18:59 06:59 Intake Total 480 500 Balance 480 500 - Medications Medications: Current Medications Acetylcysteine (Acetylcysteine 20%) 4 ml INH RQ6 [facility] Last Admin: 10/04/17 20:33 Dose: 4 ml Albuterol/Ipratropium (Duoneb 3 Mg/0.5 Mg (3 Ml) Ud) 3 ml INH RQ6 [facility] Last Admin: 10/04/17 20:33 Dose: 3 ml Apixaban (Eliquis) 2.5 mg PO BID [facility] Last Admin: 10/04/17 18:26 Dose: 2.5 mg Aspirin (Aspirin Chewable) 81 mg PO DAILY [facility] Last Admin: 10/04/17 11:07 Dose: 81 mg Calcium Acetate (Phoslo) 1,334 mg GT TID [facility] Last Admin: 10/04/17 18:26 Dose: 1,334 mg Epoetin Chencho (Procrit) 10,000 unit IV [facility] [place] Famotidine (Pepcid) 20 mg PO DAILY [facility] Last Admin: 10/04/17 11:07 Dose: 20 mg Ferric Sodium Gluconate Complex (Ferrlecit) 125 mg IVPB DAILY@1600 [facility] Stop: 10/12/17 16:01 Last Admin: 10/04/17 16:15 Dose: 125 mg Fluconazole (Diflucan) 100 mg PO DAILY [facility] Last Admin: 10/04/17 11:07 Dose: 100 mg Heparin Sodium (Porcine) (Heparin) 3,700 units IVP MWF [facility] Last Admin: 10/03/17 11:42 Dose: 3,700 units Tigecycline 50 mg/ Dextrose 100 mls @ 100 mls/hr IVPB Q12H [facility] Last Admin: 10/04/17 21:15 Dose: 100 mls/hr Insulin Aspart (Novolog) 0 unit SC Q6 [facility] PRN Reason: Protocol Last Admin: 10/04/17 18:26 Dose: 2 unit Metoprolol Tartrate (Lopressor) 50 mg PO BID [facility] Last Admin: 10/04/17 18:26 Dose: 50 mg Rosuvastatin Calcium (Crestor) 10 mg PO HS [facility] Last Admin: 10/04/17 21:14 Dose: 10 mg Saccharomyces Boulardii (Florastor) 250 mg PO BID [facility] Last Admin: 10/04/17 18:26 Dose: 250 mg - Labs Labs: 10/04/17 08:00 10/04/17 08:00 PT 13.9 SECONDS (9.7-12.2) H 08/24/17 06:08 INR 1.2 08/24/17 06:08 APTT 55 SECONDS (21-34) H D 08/17/17 06:12 Assessment and Plan - Assessment and Plan (Free Text) Assessment: Assessment and Plan - Assessment and Plan (Free Text) Assessment: Atrial Fibrillation Intermittent Rate controlled. On Metoprolol 50 mg PO BID, Eliquis 2.5 mg PO BID CAD, chest pain -No current plans for cardiac cath (acute respiratory failure and elevated Cr) , history of abnormal stress test -Elevated Troponin likely due to chest compressions during cardiac arrest 08/10 -No acute ST changes on EKG -Continue ASA, Crestor, Metoprolol. -Echocardiogram from 08/08/17 showed left ventricle systolic function is severely impaired. EF: 25-30%; global hypokinesis of LV mild AR. MR is moderate. Moderate-severe pulmonary hypertension Systolic CHF exacerbation -CXR 09/09: Diminished bilateral basilar airspace disease; stable cardiomegaly -BNP 23575 on 08/06/17 -Continue ASA, Crestor, Metoprolol -Echocardiogram from 08/08/17 showed left ventricle systolic function is severely impaired. EF: 25-30%; global hypokinesis of LV mild AR. MR is moderate. Moderate-severe pulmonary hypertesnion Dobutamine discontinued in light of atrial flutter-type episodes Diabetes Mellitus ISS Continue to monitor ESRD on HD Currently on HD On Procrit and Phoslo Nephro on the case Prophylaxis Pepcid 20 mg PO daily Eliquis 2.5 mg PO BID (Renal precautions) Disposition Awaiting Transfer to LTAC
[2017-10-05] MEDS: Acetylcysteine 20% Inhal Soln (4ml) INH SCH ×2 (02:03→07:24)
[2017-10-05] MEDS: Albuterol-Ipratrop 3 mg / 0.5 (3 ml) UD INH SCH ×4 (02:03→20:05)
[2017-10-05] MEDS: (Novolog) Insulin Aspart, Recombinant 100 u/ml 10 ml vial SC SCH ×5 (05:46→18:58)
[2017-10-05] MEDS ORDERED: EPOETIN ALFA 10,000 UNIT/ML ML IV SCH (09:00)
[2017-10-05] MEDS: Saccharomyces Boulardi 250 mg Cap PO SCH ×2 (11:39→18:57)
--- NOTE | 2017-10-05 12:37 | CP.PCM.PN ---
<Sina White - Last Filed: 10/05/17 12:38> Subjective - Date & Time of Evaluation Date of Evaluation: 10/05/17 Time of Evaluation: 12:37 - Subjective Subjective: Medicine Progress Note for Dr. Lazar HPI: Patient seen and examined at bedside. More awake and alert. ROS unattainable. Objective - Vital Signs/Intake and Output Vital Signs (last 24 hours): Temp Pulse Resp BP Pulse Ox 98.2 F 95 H 14 91/57 L 100 10/05/17 09:20 10/05/17 12:00 10/05/17 12:00 10/05/17 12:00 10/05/17 12:00 Intake and Output: 10/05/17 10/05/17 06:59 18:59 Intake Total 500 Balance 500 - Medications Medications: Current Medications Albuterol/Ipratropium (Duoneb 3 Mg/0.5 Mg (3 Ml) Ud) 3 ml INH RQ6 [facility] Last Admin: 10/05/17 07:24 Dose: 3 ml Apixaban (Eliquis) 2.5 mg PO BID [facility] Last Admin: 10/05/17 11:38 Dose: Not Given Aspirin (Aspirin Chewable) 81 mg PO DAILY [facility] Last Admin: 10/04/17 11:07 Dose: 81 mg Calcium Acetate (Phoslo) 1,334 mg GT TID [facility] Last Admin: 10/05/17 11:39 Dose: Not Given Epoetin Chencho (Procrit) 10,000 unit IV MWF [facility] Famotidine (Pepcid) 20 mg PO DAILY [facility] Last Admin: 10/04/17 11:07 Dose: 20 mg Ferric Sodium Gluconate Complex (Ferrlecit) 125 mg IVPB DAILY@1600 [facility] Stop: 10/12/17 16:01 Last Admin: 10/04/17 16:15 Dose: 125 mg Fluconazole (Diflucan) 100 mg PO DAILY [facility] Last Admin: 10/04/17 11:07 Dose: 100 mg Heparin Sodium (Porcine) (Heparin) 3,700 units IVP MWF [facility] Last Admin: 10/05/17 11:34 Dose: 3,700 units Insulin Aspart (Novolog) 0 unit SC Q6 [facility] PRN Reason: Protocol Last Admin: 10/05/17 06:42 Dose: 4 unit Metoprolol Tartrate (Lopressor) 50 mg PO BID [facility] Last Admin: 10/05/17 11:39 Dose: Not Given Rosuvastatin Calcium (Crestor) 10 mg PO HS [facility] Last Admin: 10/04/17 21:14 Dose: 10 mg Saccharomyces Boulardii (Florastor) 250 mg PO BID [facility] Last Admin: 10/05/17 11:39 Dose: Not Given - Labs Labs: 10/04/17 08:00 10/04/17 08:00 PT 13.9 SECONDS (9.7-12.2) H 08/24/17 06:08 INR 1.2 08/24/17 06:08 APTT 55 SECONDS (21-34) H D 08/17/17 06:12 - Additional Findings Additional findings: - Constitutional Appears: Chronically Ill - Head Exam Head Exam: ATRAUMATIC, NORMAL INSPECTION, NORMOCEPHALIC - Eye Exam Eye Exam: EOMI Pupil Exam: NORMAL ACCOMODATION - ENT Exam ENT Exam: Mucous Membranes Moist - Neck Exam Additional comments: trach, blood in trach collar - Respiratory Exam Respiratory Exam: Clear to Ausculation Bilateral, NORMAL BREATHING PATTERN - Cardiovascular Exam Cardiovascular Exam: REGULAR RHYTHM, tachycardic - GI/Abdominal Exam GI & Abdominal Exam: Soft, Normal Bowel Sounds. absent: Distended, Tenderness - Extremities Exam Extremities Exam: absent: Joint Swelling, Tenderness - Back Exam Additional comments: 10x10 unstageable ulcer with healthy granulation tissue. No necrotic tissue. optifoam dressing with medihoney. Clear dry and intact - Neurological Exam Neurological Exam: Alert, Awake - Psychiatric Exam Psychiatric exam: Normal Affect, Normal Mood - Skin Skin Exam: Dry, Intact, Normal Color, Warm Additional comments: Bruising on b/l hips; eschar on the base of the anterior right thumb Assessment and Plan - Assessment and Plan (Free Text) Assessment: (1) Acute Respiratory Failure ARDS Cardiac Arrest Pulmonary Edema Nonstemi Assessment and Plan: * Code Blue on 08/10: asystole, cardiopulmonary resuscitative measures initiated , requiring 3 epis, bicarbonate, ROSC achieved and intubated and brought to the ICU for further management; Patient in the ICU from 08/10 until present. * Pulmonary: Dr Mena (Dr. Jeffers covering until 09/04/17)-->help appreciated * Cardiology: Dr. Cortés on board-->help appreciated * GI (Dr. Wills) on board-->help appreciated * S/P Tracheostomy 08/22 * S/P Peg tube placement 08/25 * s/p insertion of right posterior chest tube 08/19-->removed 08/24/17 * There was consideration for possible thoracentesis of left side pleural effusion, evaluated by IR, there is no fluid to drain per Dr. Gross * Chest xray (08/26): right arm PICC is seen with the tip of distal subclavian vein. PICC may be used * Per cardiology, * Restart Aspirin 81mg PO daily * Patient does not need Plavix at this time * Recommend for Eliquis 2.5mg PO BID for atrial flutter * 08/27: patient is pending LTAC, he went eventually need cardiac catheterization when he has stabilized. Held statin secondary to elevated LFTs. Discussed with Dr. Cortés, lowered Amiodarone 200mg PO daily * 08/28: patient is pending LTAC, he went eventually need cardiac catheterization when he has stabilized. Liver function tests improving * 08/29: Lead Dental Assistant Nehal has sent request to insurance for authorization for LTAC-->pending * 09/06: pending social work/case management approval for LTAC * 09/07: pending social work/case management approval for LTAC * 09/08: Unable to get approval for LTAC; pending other options * 09/09: Transferred from step-down ICU to the floors * 09/13: Trasnferred back to ICU S/P Rapid Response for low blood pressure * 09/14: Currently on Acetylcysteine 20 % Neb Q6H and Duoneb Q6H * 09/15: Passy Flex Trach placed by [employer] Vehicle Supervisor (2) Abnormal Stress Test History of AICD History of Coronary Artery Disease Assessment and Plan: * Cardiology (Dr. Cortés) on board-->help appreciated * TSH: 1.16; T4: 1.53 * Echocardiogram (08/08/17): left ventricle systolic function is severely impaired. EF: 25-30%; global hypokinesis of left ventricle mild aortic regurgitation. Mitral regurgitation is moderate. Moderate-severe pulmonary hypertension * Plan was for cardiac catheterization; delayed due to acute renal failure; Attempted gentle hydration and mucomyst on 08/09 to optimize prior to cath * On 08/10, patient was in asystole, ACLS protocol, ROSC achieved, intubated and transfered to the ICU. Patient in acute pulmonary edema. * Patient hospitalized in the ICU since 08/10/17 to present. * Medications: * Aspirin 81mg PO daily * Plavix d/c by cardiology * Lopressor 50mg PO bid * d/c Crestor 10mg POqHS secondary to rise in LFTS 08/27--->monitor LFTs daily * ARB d/c secondary to acute renal failure * 08/27: patient is pending LTAC, he went eventually need cardiac catheterization when he has stabilized. Held statin secondary to elevated LFTs. Discussed with Dr. Cortés, lowered Amiodarone 200mg PO daily * 08/28: He will eventually need cardiac catheterization when he has stabilized. Liver function tests improving. Statin is on hold (3) Atrial flutter Assessment and Plan: * Cardiology (Dr. Cortés) on board-->help appreciated * Refractory to Lopressor/Cardizem IVP * Eliquis 2.5mg PO bid * Amiodarone bolus-->Amiodarine drip on 08/24-->converted to Amiodarone 200mg PO TID on 08/26 and this was decreased to 200 mg 1x/day due to increased LFTs * 08/27: Discussed with Dr. Cortés, will lower Amiodarone 200mg PO daily and monitor LFTs. Statin held and tylenol d/c * 08/29: patient is pending LTAC, he will eventually need cardiac catheterization when he has stabilized. Liver function tests improving. Statin is on hold due to the elevated LFTs * 08/30: Cardiology discontinued the Amiodarone * 09/07: Held eliquis; will need to resume * 09/09: Eliquis resumed, off Amiodarone Status: Acute (4) Acute on Chronic Systolic CHF exacerbation Assessment and Plan: * Cardiology (Dr. Cortés) on board-->help appreciated * Transferred to the ICU on 08/10 following cardiac arrest and intubation. * Echocardiogram (08/08/17): left ventricular systolic function is severely impaired. EF: 25-30%; global hypokinesis of left ventricle mild aortic regurgitation. Mitral regurgitation is moderate. Moderate-severe pulmonary hypertension * Medications: * Aspirin 81mg PO daily * Plavix d/c by cardiology * Lopressor 50mg PO bid * d/c Crestor 10mg POqHS on 08/27 secondary to rise in LFTs * ARB d/c secondary to acute renal failure Status: Acute (5) Leukocytosis Assessment and Plan: * Patient's white count downtrending * Pleural Fluid 08/19/17 did not show any growth * Blood cultures (08/26): no growth X5 days * UA and urine culture (08/27): Urine Culture showed Yeast Species. * Patient has elevated LFTs-->did not start anti-fungal in light of LFTs New: * 09/05/17 Blood: gram positive cocci-->pending speciation * 09/05/17 Blood: no growth after 4 days * 09/07/17 Legionella Culture: negative * 09/07/17 Mycobacteria: negative * 09/07/17 Sputum: Enterocloace Bacter; yeast * 09/07/17 Blood: negative X 48 hours * 09/07/17 Blood: negative X 48 hours * 09/06: stool culture pending; has not had diarrhea or bowel movement * 09/07: Dr. Zimmer (covering Dr. Lawrence) to see the patient given elevated procalcitonin * Blood Culture 09/13/17 is negative to date and Urine Culture 09/13/17 showed Yeast Species * 09/14: Could this be secondary to the Septic Shock? Secondary to Osteomyelitis of the Sacrum? 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) and Meropenem 500 mg IV Q8H (09/13/17 through 09/16/17), Diflucan 200 mg PO 1x/day (09/13/17), Bactrim 10 mL PO Q12H (09/12/17 through 09/16/17), Tigecycline 50 mg IV Q12H (09/16/17 started because of VRE on Sacrum Wound Culture 09/14/17) * ESR 09/14/17 elevated at 89 * Bone Scan performed 09/17/17 to check for Osteomyelitis at the Sacrum: results are pending * Meropenem 500 mg IV Q12H (09/13/17 through 09/16/17: which will cover the Enterbacter in the Sputum 09/07/17 and the possibility of Sacral Osteomyelitis) * Antibiotics as of 09/17/17:Tigecycline (09/16/17: which will cover the VRE in Sacral Wound Culture 09/14/17 and the possibility of Sacral Osteomyelitis) and Diflucan 200 mg PO 1x/day (09/13/17: which will cover with Yeast in the Sputum, Urine, and Sacral Wound Culture) Status: Acute (6) Pneumonia Assessment and Plan: * Pulmonary (Dr. Mena) on board-->help appreciated; Dr. Jeffers covering while Dr. Mena away * Infectious Disease (Dr. Lawrence)-->help appreciated * Chest xray (08/26): right arm PICC is seen with the tip of distal subclavian vein. PICC may be used * Rapid A strep, Influenza A and B studies, Urine Legionella, Mycoplasma studies = Negative * Florastor 250mg PO bid * 08/07/17: +Strep Pneumoniae in the urine * Meropenem 500mg IV Q 8 hours (08/14/17 through 08/18/17) and Zosyn 2.25 mg IV Q6H (08/13/17 through 08/18/17) * Cefepime 1 gm IV Q24H: started on 08/19/17 and was discontinued by ID Dr. Lawrence on 08/30/17: monitor vitals and labs * s/p right posterior chest tube 08/19-08/24 * Sputum Culture 08/19/17 shows No growth * Pleural fluid 08/19/17: No growth * 09/07/17 Sputum: Enterocloace Bacter and Yeast Species: See Antibiotic treatment in previous Assessment and Plan * Sputum 09/10/17 shows NO AFB Status: Acute (7) HTN (hypertension) Assessment and Plan: * Lopressor 50mg PO bid * Lisinopril 5mg PO daily Status: Chronic (8) CKD (chronic kidney disease) on Dialysis Assessment and Plan: * Dr. Miranda (nephrology) consulted on the case * Hx of CKD-->Started on dialysis 08/15/17 * Kurtis catheter placed and removed 08/22 * s/p Right Chest Permcath 08/22 * Patient is on dialysis M-W-F; oliguric * Phoslo 1334mg GT TID * Epoetin 10,000 unit IV MWF Status: Acute (9) Diabetes mellitus Assessment and Plan: * Accuchecks Q6H * HgbA1c 8.4 * Started peg feedings on 08/26/17 * Nepro-->50 ml/hour but this was held 09/13/17 due suspicion of Bowel Obstruction as NO bowel Movement since 09/07/17. This was restarted on after NO obstruction was observed on Obstruction Series 09/13/17 and after multiple bowel movement s/p Fleet Enema 09/13/17 (10) HLD (hyperlipidemia) Assessment and Plan: * 08/27: held Crestor 10 mg PO HS secondary to rise in LFTs * 08/29: Liver function tests improving; waiting to restart statin Status: Chronic (11) Anemia Assessment and Plan: * Heme-oncology (Dr. Giles bender) on board-->help appreciated * Likely iron deficiency anemia based on prior admissions * Ferritin 27.4, Iron 22, TIBC 322, % Saturation 7 * Ferric Sodium Gluconate 125mg IVPB daily (active 08/08-08/16) * Procrit 10,000 units M-W- * Monitor Hgb/Hct: stable Status: Chronic (12) History of DVT (deep vein thrombosis) Assessment and Plan: * Patient was previously on Eliquis for a prior history of DVT. * Repeat dopplers 08/09/17 are negative for DVT * Off Heparin Drip 08/17/17 * Started Eliquis 2.5mg PO BID for atrial flutter and history of DVT Status: Chronic (13) UTI Assessment and Plan: * Infectious disease (Dr. Lawrence) on board-->help appreciated * Exchange jaquez out and repeat urine cultures * Urine Culture 08/12/17 showed Gram Negative Rods: NO identification and NO sensitivities were performed * Meropenem 500mg IV Q 12hours (active since 08/14/17 through 08/18/17) to cover for UTI per ID * Repeat Urine Culture 08/18/17 shows NO growth * 08/25: reculture in light of leukocytosis * 08/27: pending urine studies * 08/30: Urine Culture 08/27/17 showed Yeast Species but no antifungal at that time secondary to recent history of Elevated LFTs * Urine Culture 09/13/17 showed Yeast Species: he is on Diflucan Status: Chronic (14) Confusion; Alzheimer's Dementia Assessment and Plan: * Per daughter, patient has been getting bouts of confusion over the past year but appears at baseline. Patient has not seen formal neurology as outpatient per daughter. Per , prior to event, noted Alzheimers' disease dx one year ago * CT head w/o contrast (08/10/17):acute os subacute lacune infarct is not excluded in the left basal ganglia inferiorly with definitive chronic lacune identified in the right basal ganglia superiorly. No acute or subacute lobar brain infarction is appreciable by standard CT criteria. Mild age-related neuro degenerative changes are identifed. No acute intracranial hemorrhage or mass is identified throughout * 08/26: Off Sedation-->patient moves all extremities randomly but does not follow directions * 08/27: off sedation-->patient is very calm, smiles at his * 08/28: off sedation-->patient is very calm Status: Chronic (15) Unstageable Sacral Ulcer, Left Ear Auricle Ulcer, Right Heal Ulcer Assessment and Plan: * Wound care on board * WOUND CARE NOTE (08/26)-->Pt with a sacral unstageable being treated with medihoney. No changes to dimensions at this time. Also, pt favoring Left side of head and has developed a 1x1 serous filled blister on his left ear. Primary nurse placed duoderm on the ear. Wound care nurse left duoderm in place , and recommends leaving it on until it falls off on its own. Pt has been NPO for several days, new peg inserted yesterday. Will be starting glucerna tube feedings later today. Albumin 3.3 * Turn q 2 hours * medihoney on unstageable ulcer * duoderm on left ear aurical ulcer: this is healed as of 09/15/17 * Prevalon Boots for Right Heal Blister 09/13/17 * 09/02/17: examined with Wound Care Nurse Emeka Samuel and periphery of the Sacral Wound is pink with some bleeding however center is still black and therefore still unstageable. Continue spray with Cavelon followed by thick coating with MediHoney followed by covering with OptiFoam once a day. * 09/03/17: Change of sacral ulcer dressing was performed by me with assitance from Nurse Lyman * 09/04/17: 09/03/17: Change of sacral ulcer dressing was performed by me with assistance from ALEXANDRA Unger * Per wound care note (09/07): sacral ulcer is stable per wound care nurse * 09/14/17: Sacral Ulcer is unstageable and area of blackness fills entire circumference. General Surgery consult placed to see if debridement is necessary. Continue Cavelon [place] followed by paulina thick coating of MediHoney followed by covering with OptiFoam. * 09/15/17: Surgery Team debrided Sacral Ulcer and Bone Scan will need to be followed up which was performed 09/17/17 * 09/18/17: With the help of Nurse Guzman, applied Cavelon [place] followed by thick coating of MediHoney followed by covering with OptiFoam * 09/19/17: Dressing for Sacral Ulcer already changed before my exam. Explained to Nurse Guzman that best application of MediHoney would be to cover the padding of the OptiFoam with it and then apply the OptiFoam to the ulcer. Status: Acute (16) Elevated LFTs Assessment and Plan: * 08/27: Yina * Discussed with cardiology-->changed amiodarone 200mg PO tid to amiodaron 200mg PO daily * D/C tylenol * Held Statin * patient is also on Rocephin to cover for pneumonia * Will not start antifungal * 08/29: starting to down trending since change in amiodarone dose; awaiting to restart statin * 08/30: continues to trend down. Amiodarone was discontinued * 09/01: AST, ALT, Alk Phos still elevated but stable * 09/02: AST, ALT, Alk Phos still elevated but stable * 09/03: LFTs stable * 09/04: LFTs stable Status: Acute (17). Hx Constipation * Monitor bowel movement * Multiple bowel movements on 09/13/17 and 09/14/17 that are well formed s/p Fleet Enema on 09/13/17 * 09/15/17: NO bowel movement * 09/16/17: Soft pasty bowel movement * 09/17/17: Soft pasty bowel movement * 09/18/17: NO bowel movement * 09/19/17: ordered one dose of Lactulose 20 gm via PEG as still no bowel movement (18). Hyponatremia * 09/19/17: at 127 monitor for now (19). Prophylactic measure Assessment and Plan: * Pepcid 20mg PO daily * Start Eliquis 2.5mg PO BID * s/p peg placement 08/25 * s/p trachesostomy 08/22 * s/p Permcath placement 08/22 removal Kurtis catheter * s/p right posterior chest tube 08/19-->removed 08/24 * s/p Right Arm PICC 08/26 * (Jovita Serrano): -->number provided to the nurse- ->consented for peg placement; discussed about LTAC 08/26 * Spoke with Dr. Pickard, MARIAJOSE regarding patient's hospitalization up until this point 08/2609/01/17: Dr. Cullen Barth spoke with the patient's [place] with the assistance of Nurse Campos on 3 tower (as multiple attempts of using [employer] indicated that all of the [place]vian translators were busy) and explained all of the patient's diagnosises. 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 Her ultimate wish is to take patient to [facility] where their children live. I explained to patient that I would not know how that would be coordinated but that the Social Workers/Electrophysiologist at LTAC may be of assistance in this regard. I also informed her that I am not aware of any insurance company that would finance this request. She understands that the patient is awaiting insurance approval for LTAC. 09/01/17 and 09/02/17: Dr. Cullen Barth spoke with Masonry Teacher Demetria and we are still awaiting insurance authorization for LTAC placement. 09/05/17: Spoke with nehal social problems specialist, wean trials sent to LTAC pending approval no word yet regarding approval. Ordered for repeat cultures given uptrend in white count. 09/06/17: pending repeat cultures in light of elevated procalcitonin; ID recommended to reculture. Note: patients PICC lined had clogged ports. Red port remains clogged in spite of cath rafaela. Blue port improved after cath rafaela. Possible may need to remove line to r/o infected line. Strong suspicion due to patient's pneumonia given he has thick secretions. 09/07/17: Infectious disease. pending repeat cultures in light of elevated procalcitonin; Note: patients PICC lined had clogged ports. Red port remains clogged in spite of cath rafaela. Blue port improved after cath rafaela. Hip xray negative for acute fracture. There are no noted falls. 09/08/17: Patient denied for LTAC; awaiting for other options from case management/social work. Resident Eng spoke with Dr. Cortés, patient be transferred under regular bed, when bed is available. Infectious disease on board; Patient started on IV Vancomycin in light of + blood culture. Pending chest xray. 09/09/17: Patient denied for LTAC; awaiting for other options from case management/social work with kamlesh thompson [facility] support. Patient started on IV Vancomycin MWF in light of + blood culture. Pending chest xray. F/U sputum with ID. f/u latest blood cultures. 09/13/17: Rapid response for low blood pressure and elevated WBC likely Septic Shock. Started on Levophed, added Meropenem to Vancomycin and 1 dose of Gentamycin given after speaking with ID. Ordered Obstruction Series as no bowel movement since 09/07/17. F/U Shock Panel. Discussed with ICU Resident to arrange for Change of Right Arm Midline line and Trach Collar. 09/14/17: Will await results of Blood Culture 09/13/17 to determine if the Right Arm Midline, Right Chest Perm Cath, and Trach Collar needs to be changed. Spoke with Masonry Teacher Demetria in ICU and patient information has been sent to [facility] and [facility] (they accept patients on Trach) and she is awaiting to hear back from them before submitting approval request to insurance company. 09/15/17: Passy Flex Trach placed by [employer] Vehicle Supervisor. Surgical Team for debridement of Sacral Ulcer. Spoke with patient's ([place] Den[place] [id number]) and explained/updated her on patient condition and obtained consent for sacral ulcer debridement. 09/16/17: Still awaiting performance of Sacral Bone Scan 09/17/17: Bone Scan performed and awaiting results 09/18/17: Awaiting Bone Scan Report 09/19/17: Still awaiting Bone Scan Report. Spoke again with Masonry Teacher Demetria and NO word yet from [facility] or [facility] (they do treat patients with Trachs). 09/20/17: Repeat Wound culture and urine culture sent. Dressing changed with medihoney and optifoam. No other changes at this time. Still waiting for approval for [facility] 09/21/17: No changes at this time. Will continue to change wound dressing Q3D and follow up with case management for [facility]. 09/22/17: Dressing changed today with medihoney. Healing appropriately. Talked to case management. Still no update from [facility] transfer. Bone scan negative for osteo. Repeat wound cultures continue to grow Enterococcus. Will follow up sensitivities 09/26/17: Dialysis today. Dressing changed with optifoam and medihoney (nickel thick). VRE/germania in wound. Talked to case management. No updates at this time 09/27/17: dressing changed today with optifoam and medihoney (Nickel thick). Case management says no new information from [facility]. Will update as new information becomes available. 09/28/17: dressing changed today with optifoam and medihoney (Nickel thick). Case management says no new information from [facility]. Will update as new information becomes available. 3x3cm unstageable ulcer on R. heel present. Will talk to surgery for possible bedside debridment. 09/29/17:Talked to case management again today. No new information. Patient is tachycardiac and having blood tinged sputum in his trach collar. Will order a chest xray. 09/30/17: Talked to case management again today. No new information. went for dialysis yesterday due to excess fluid. Changed dressing at bedside today. 10/03/17: Dressing changed daily. Talked to ID on duration of Tigecycline, will evaluate wound. Surgery will also evaluate wound. Accepted at [facility]. Needs 2 days for authorization. Plan discharge on Tuesday10/04/17: Surgery saw and evaluated the wound today. They said no surgical intervention is needed. Talked to case management and still planning for discharge on Tuesday. Will follow up with ID on Tigecyline duration. 10/05/17: Patient lost approval for [facility]. Social work and case management is looking for a new [facility] at the moment. Tigecycline has been discontinued per ID. No other updates at this time. <ToritoalbertMariangel V - Last Filed: 10/06/17 14:58> Objective - Vital Signs/Intake and Output Vital Signs (last 24 hours): Temp Pulse Resp BP Pulse Ox 98.1 F 92 H 20 138/72 96 10/06/17 07:00 10/06/17 07:00 10/06/17 07:00 10/06/17 07:00 10/06/17 07:00 Intake and Output: 10/06/17 10/06/17 06:59 18:59 Intake Total 400 140 Balance 400 140 - Medications Medications: Current Medications Albuterol/Ipratropium (Duoneb 3 Mg/0.5 Mg (3 Ml) Ud) 3 ml INH RQ6 [facility] Last Admin: 10/06/17 13:21 Dose: 3 ml Apixaban (Eliquis) 2.5 mg PO BID [facility] Last Admin: 10/06/17 09:58 Dose: 2.5 mg Aspirin (Aspirin Chewable) 81 mg PO DAILY [facility] Last Admin: 10/06/17 09:58 Dose: 81 mg Epoetin Chencho (Procrit) 10,000 unit IV MWF [facility] Famotidine (Pepcid) 20 mg PO DAILY [facility] Last Admin: 10/06/17 09:58 Dose: 20 mg Ferric Sodium Gluconate Complex (Ferrlecit) 125 mg IVPB DAILY@1600 [facility] Stop: 10/12/17 16:01 Last Admin: 10/05/17 16:28 Dose: 125 mg Insulin Aspart (Novolog) 0 unit SC Q6 [facility] PRN Reason: Protocol Last Admin: 10/06/17 12:47 Dose: 4 unit Insulin Detemir (Levemir) 30 unit SC Q12 [facility] Last Admin: 10/06/17 11:38 Dose: 30 unit Metoprolol Tartrate (Lopressor) 50 mg PO BID [facility] Last Admin: 10/06/17 10:01 Dose: 50 mg Rosuvastatin Calcium (Crestor) 10 mg PO HS [facility] Last Admin: 10/05/17 21:07 Dose: 10 mg Saccharomyces Boulardii (Florastor) 250 mg PO BID [facility] Last Admin: 10/06/17 09:58 Dose: 250 mg - Labs Labs: 10/06/17 08:20 10/06/17 08:20 PT 13.9 SECONDS (9.7-12.2) H 08/24/17 06:08 INR 1.2 08/24/17 06:08 APTT 55 SECONDS (21-34) H D 08/17/17 06:12 Attending/Attestation - Attestation I have personally seen and examined this patient.: Yes I have fully participated in the care of the patient.: Yes I have reviewed all pertinent clinical information, including history, physical exam and plan: Yes Notes (Text): This is late computer entry for 10/05/17. Patient seen, examined, and case discussed with day-time resident. Patient is awake, smiles, seen during dialysis session yesterday. mechanical fitterEmeka seen and changed dressing of patient's sacral ulcer; improving. Surgery no intervention for heel eschar. Will follow-up with pulmonary to see when patient can be decannulate; and for possible voice-valve for speech therapy. Discussed with case management, will need to re-attempt to dialysis spot. Resident discussed with ID, Tigecycline to be discontinued. Assessment/Plan (1) Acute Respiratory Failure ARDS Cardiac Arrest Pulmonary Edema Nonstemi Assessment and Plan: * Code Blue on 08/10: asystole, cardiopulmonary resuscitative measures initiated , requiring 3 epis, bicarbonate, ROSC achieved and intubated and brought to the ICU for further management; Patient in the ICU from 08/10 until present. * Pulmonary: Dr Mena (Dr. Jeffers covering until 09/04/17)-->help appreciated * Cardiology: Dr. Cortés on board-->help appreciated * GI (Dr. Wills) on board-->help appreciated * S/P Tracheostomy 08/22 * S/P Peg tube placement 08/25 * s/p insertion of right posterior chest tube 08/19-->removed 08/24/17 * Passy Flex Trach placed 09/15 * There was consideration for possible thoracentesis of left side pleural effusion, evaluated by IR, there is no fluid to drain per Dr. Gross * Chest xray (08/26): right arm PICC is seen with the tip of distal subclavian vein. PICC may be used * Chest Xray (09/20/17): lines and tubes stable position, left-sided pacemaker, moderate venous congestion, left basilar opacity with associated small left pleural effusion, Cardiomegaly. Prominent aorta, degenrative changes in spine and shoulders * Medications: * Acetylcysteine 20% 4ml INH RQ6H * Duoneb 3ml INH RQ6H * Aspirin 81mg PO daily * Eliquis 2.5mg PO bid * Lopressor 50mg PO bid * 10/03: pulmonary note: reports attempt at decannulation; will follow-up (2) Abnormal Stress Test History of AICD History of Coronary Artery Disease Assessment and Plan: * Cardiology (Dr. Cortés) on board-->help appreciated * TSH: 1.16; T4: 1.53 * Echocardiogram (08/08/17): left ventricle systolic function is severely impaired. EF: 25-30%; global hypokinesis of left ventricle mild aortic regurgitation. Mitral regurgitation is moderate. Moderate-severe pulmonary hypertension * Plan was for cardiac catheterization; delayed due to acute renal failure; Attempted gentle hydration and mucomyst on 08/09 to optimize prior to cath * On 08/10, patient was in asystole, ACLS protocol, ROSC achieved, intubated and transfered to the ICU. Patient in acute pulmonary edema. * Patient hospitalized and require to and from ICU twice during this admission * Cardiac cath postponed at this time * Medications: * Acetylcysteine 20% 4ml INH RQ6H * Duoneb 3ml INH RQ6H * Aspirin 81mg PO daily * Eliquis 2.5mg PO bid * Lopressor 50mg PO bid * Restart Crestor 5mg POqHS (3) Atrial flutter Assessment and Plan: * Cardiology (Dr. Cortés) on board-->help appreciated * Refractory to Lopressor/Cardizem IVP * Eliquis 2.5mg PO bid * Off Amiodarone per cardiology * c/w Lopressor 50mg PO bid Status: Resolved (4) Acute on Chronic Systolic CHF exacerbation Assessment and Plan: * Cardiology (Dr. Cortés) on board-->help appreciated * Transferred to the ICU on 08/10 following cardiac arrest and intubation. * Echocardiogram (08/08/17): left ventricular systolic function is severely impaired. EF: 25-30%; global hypokinesis of left ventricle mild aortic regurgitation. Mitral regurgitation is moderate. Moderate-severe pulmonary hypertension * Medications: * Aspirin 81mg PO daily * Lopressor 50mg PO bid * ARB d/c secondary to acute renal failure * Restart statin given LFTs normalized Status: Stable (5) Leukocytosis Assessment and Plan: * Pleural Fluid 08/19/17 did not show any growth * Blood cultures (09/13): no growth X5 days X2 * Blood cultures (09/07) during dialysis: no growth X5 days X2 * UA and urine culture (08/27): Yeast Species. * UA and urine culture (09/13): Yeast Species. * Urine culture (09/20: Yeast species * 09/07/17 Legionella Culture: negative * 09/07/17 Mycobacteria: negative * 09/07/17 Sputum: Enterocloace Bacter; yeast * Blood cultures (09/13): no growth X5 days X2 * Blood cultures (09/07) during dialysis: no growth X5 days X2 * Sacral Ulcer (09/14/17): VRE and Germania Albicans * Sacral Ulcer (09/15/17): VRE and Germania Albicans * Sacral Ulcer (09/20/17): VRE and Germania Albicans * Bone Scan performed 09/17/17 to check for Osteomyelitis at the Sacrum: negative for osteomyelitis * c/w Tigecycline (09/16/17): which will cover the VRE in Sacral Wound Culture 09/14/17 and repeat on 09/20/17--to finish today 10/05/17 * c/w Diflucan 200 mg PO 1x/day (09/13/17; Day 20): which will cover with Yeast in the Sputum, Urine, and Sacral Wound Culture-->will f/u with ID when to stop * Procalcitionin: 8.60 (09/06/17)-->5.80 (09/20)-->2.80 Status: Acute (6) Pneumonia Assessment and Plan: * Pulmonary (Dr. Mena) on board-->help appreciated * Infectious Disease (Dr. Lawrence)-->help appreciated * Chest xray (08/26): right arm PICC is seen with the tip of distal subclavian vein. PICC may be used * Rapid A strep, Influenza A and B studies, Urine Legionella, Mycoplasma studies = Negative * Florastor 250mg PO bid * 08/07/17: +Strep Pneumoniae in the urine * Meropenem 500mg IV Q 8 hours (08/14/17 through 08/18/17) and Zosyn 2.25 mg IV Q6H (08/13/17 through 08/18/17) * Cefepime 1 gm IV Q24H: started on 08/19/17 and was discontinued by STEPHEN Lawrence on 08/30/17: monitor vitals and labs * s/p right posterior chest tube 08/19-08/24 * Sputum Culture 08/19/17 shows No growth * Pleural fluid 08/19/17: No growth * 09/07/17 Sputum: Enterocloace Bacter and Yeast Species: See Antibiotic treatment in previous Assessment and Plan * Sputum 09/10/17 shows NO AFB Status: Acute (7) HTN (hypertension) Assessment and Plan: * Lopressor 50mg PO bid * Lisinopril 5mg PO daily Status: Chronic (8) CKD (chronic kidney disease) on Dialysis Assessment and Plan: * Dr. Miranda (nephrology) consulted on the case * Hx of CKD-->Started on dialysis 08/15/17 * Kurtis catheter placed and removed 08/22 * s/p Right Chest Permcath 08/22 * Patient is on dialysis --; oliguric * Phoslo 1334mg GT TID * Epoetin 10,000 unit IV MWF Status: Chonic (9) Diabetes mellitus Assessment and Plan: * Accuchecks Q6H * HgbA1c 8.4 * Started peg feedings on 08/26/17 * Nepro-->50 ml/hour but this was held 09/13/17 due suspicion of Bowel Obstruction as NO bowel Movement since 09/07/17. This was restarted on after NO obstruction was observed on Obstruction Series 09/13/17 and after multiple bowel movement s/p Fleet Enema 09/13/17 (10) HLD (hyperlipidemia) Assessment and Plan: * LFTS have normalized; will restart statin 09/20/17 Status: Chronic (11) Anemia Assessment and Plan: * Heme-oncology (Dr. Giles bender) on board-->help appreciated * Likely iron deficiency anemia based on prior admissions * Ferritin 27.4, Iron 22, TIBC 322, % Saturation 7 * Ferric Sodium Gluconate 125mg IVPB daily (active 08/08-08/16) * Procrit 10,000 units M-W- * Monitor Hgb/Hct: stable Status: Chronic (12) History of DVT (deep vein thrombosis) Assessment and Plan: * Patient was previously on Eliquis for a prior history of DVT. * Repeat dopplers 08/09/17 are negative for DVT * Off Heparin Drip 08/17/17 * Started Eliquis 2.5mg PO BID for atrial flutter and history of DVT Status: Chronic (13) UTI Assessment and Plan: * Infectious disease (Dr. Lawrence) on board-->help appreciated * Exchange jaquez out and repeat urine cultures * Urine Culture 08/12/17 showed Gram Negative Rods: NO identification and NO sensitivities were performed * Meropenem 500mg IV Q 12hours (active since 08/14/17 through 08/18/17) to cover for UTI per ID * Repeat Urine Culture 08/18/17 shows NO growth * 08/25: reculture in light of leukocytosis * 08/27: pending urine studies * 08/30: Urine Culture 08/27/17 showed Yeast Species but no antifungal at that time secondary to recent history of Elevated LFTs * Urine Culture 09/13/17 showed Yeast Species: he is on Diflucan Status: Chronic (14) Confusion; Alzheimer's Dementia Assessment and Plan: * Per daughter, patient has been getting bouts of confusion over the past year but appears at baseline. Patient has not seen formal neurology as outpatient per daughter. Per , prior to event, noted Alzheimers' disease dx one year ago * CT head w/o contrast (08/10/17):acute os subacute lacune infarct is not excluded in the left basal ganglia inferiorly with definitive chronic lacune identified in the right basal ganglia superiorly. No acute or subacute lobar brain infarction is appreciable by standard CT criteria. Mild age-related neuro degenerative changes are identifed. No acute intracranial hemorrhage or mass is identified throughout * 08/26: Off Sedation-->patient moves all extremities randomly but does not follow directions * 08/27: off sedation-->patient is very calm, smiles at his * 08/28: off sedation-->patient is very calm Status: Chronic (15) Unstageable Sacral Ulcer, Left Ear Auricle Ulcer, Right Heal Ulcer Assessment and Plan: * Wound care on board * WOUND CARE MSYE-[id number]-[id number] patients sacral ulcer. Base softening up. Must continue medi-honey (nickel thick) then cover with a bordered dressing to be done daily. Patient must be repositioned frequently to optimize offloading of sacral region. Right heel is dark purple in color. Must continue to elevate both heels at all times to optimize heel offloading. Hemoglobin-9.6, Marshal of 14. Patient continues to be at risk for skin breakdown. will continue to follow. 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/14/17): VRE and Germania Albicans * Sacral Ulcer (09/15/17): VRE and Germania Albicans * Sacral Ulcer (09/20/17): VRE and Germania Albicans * Bone Scan performed 09/17/17 to check for Osteomyelitis at the Sacrum: negative for osteomyeliti * Daily wound care and dressing change by medicine team; healing appropriately Antibiotics * c/w Tigecycline (09/16/17: which will cover the VRE in Sacral Wound Culture and repeat on 09/20/17-->PER ID, d/c 10/15/17 * c/w Diflucan 200 mg PO 1x/day (09/13/17; Day 20): which will cover with Yeast in the Sputum, Urine, and Sacral Wound Culture-->will f/u with ID when to stop * Procalcitionin: 8.60 (09/06/17)-->5.80 (09/20)-->2.80 (10/04) Status: Acute (16) Elevated LFTs Assessment and Plan: * Have normalized * Currently on Diflucan since 09/13/17 (17). Hx Constipation * Monitor bowel movement * 09/25/17 had bowel movement today (18). Hyponatremia * 09/19/17: at 127 monitor for now (19). Prophylactic measure Assessment and Plan: * Pepcid 20mg PO daily * Start Eliquis 2.5mg PO BID * s/p peg placement 08/25 * s/p trachesostomy 08/22 * s/p Permcath placement 08/22 removal Kurtis catheter * s/p right posterior chest tube 08/19-->removed 08/24 * s/p Right Arm PICC 08/26 * Passy Flex Trach placed 09/15 * (Jovita Serrano): -->number provided to the nurse- ->consented for peg placement; discussed about LTAC 08/26 * Spoke with Dr. Pickard, PMD regarding patient's hospitalization up until 08/26 Disposition: * Awaiting from case management in regards to discharge to subacute rehab---> will need to restart process to secure dialysis placement * Tigecycline to d/c 10/15/17 per discussion with ID; will need to follow regarding Diflucan. * Will need to f/u with pulm regarding when patient can be decannulated
--- NOTE | 2017-10-05 15:58 | CP.PCM.PN ---
Subjective - Date & Time of Evaluation Date of Evaluation: 10/05/17 Time of Evaluation: 14:35 - Subjective Subjective: tolerated HD unable to obtain history or ROS at side Objective - Vital Signs/Intake and Output Vital Signs (last 24 hours): Temp Pulse Resp BP Pulse Ox 98.0 F 100 H 20 119/56 L 95 10/05/17 15:42 10/05/17 15:42 10/05/17 15:42 10/05/17 15:42 10/05/17 15:42 Intake and Output: 10/05/17 10/05/17 06:59 18:59 Intake Total 500 Balance 500 - Medications Medications: Current Medications Albuterol/Ipratropium (Duoneb 3 Mg/0.5 Mg (3 Ml) Ud) 3 ml INH RQ6 [facility] Last Admin: 10/05/17 13:09 Dose: Not Given Apixaban (Eliquis) 2.5 mg PO BID [facility] Last Admin: 10/05/17 11:38 Dose: Not Given Aspirin (Aspirin Chewable) 81 mg PO DAILY [facility] Last Admin: 10/05/17 14:44 Dose: 81 mg Calcium Acetate (Phoslo) 1,334 mg GT TID [facility] Last Admin: 10/05/17 14:44 Dose: 1,334 mg Epoetin Chencho (Procrit) 10,000 unit IV [facility] Famotidine (Pepcid) 20 mg PO DAILY [facility] Last Admin: 10/05/17 14:44 Dose: 20 mg Ferric Sodium Gluconate Complex (Ferrlecit) 125 mg IVPB DAILY@1600 [facility] Stop: 10/12/17 16:01 Last Admin: 10/04/17 16:15 Dose: 125 mg Fluconazole (Diflucan) 100 mg PO DAILY [facility] Last Admin: 10/05/17 14:44 Dose: 100 mg Heparin Sodium (Porcine) (Heparin) 3,700 units IVP MWF [facility] Last Admin: 10/05/17 11:34 Dose: 3,700 units Insulin Aspart (Novolog) 0 unit SC Q6 [facility] PRN Reason: Protocol Last Admin: 10/05/17 12:00 Dose: Not Given Metoprolol Tartrate (Lopressor) 50 mg PO BID [facility] Last Admin: 10/05/17 11:39 Dose: Not Given Rosuvastatin Calcium (Crestor) 10 mg PO HS [facility] Last Admin: 10/04/17 21:14 Dose: 10 mg Saccharomyces Boulardii (Florastor) 250 mg PO BID [facility] Last Admin: 10/05/17 11:39 Dose: Not Given - Labs Labs: 10/04/17 08:00 10/04/17 08:00 PT 13.9 SECONDS (9.7-12.2) H 08/24/17 06:08 INR 1.2 08/24/17 06:08 APTT 55 SECONDS (21-34) H D 08/17/17 06:12 - Constitutional Appears: Chronically Ill - Head Exam Head Exam: ATRAUMATIC Additional comments: trach collar - ENT Exam ENT Exam: Mucous Membranes Moist - Neck Exam Neck Exam: Full ROM. absent: Lymphadenopathy - Respiratory Exam Respiratory Exam: Clear to Ausculation Bilateral. absent: Accessory Muscle Use - Cardiovascular Exam Cardiovascular Exam: REGULAR RHYTHM. absent: Rubs - GI/Abdominal Exam GI & Abdominal Exam: Distended. absent: Tenderness Additional comments: PEG - Neurological Exam Neurological Exam: Awake. absent: Oriented x3 Assessment and Plan - Assessment and Plan (Free Text) Assessment: maint HD to be continued trach management on tube feeds wound care of decub for placement
--- NOTE | 2017-10-05 16:03 | CP.PCM.PN ---
Subjective - Date & Time of Evaluation Date of Evaluation: 10/05/17 Time of Evaluation: 17:00 - Subjective Subjective: patient seen and examined. No respiratory distress On trach collar Afebrile Status post dialysis Objective - Vital Signs/Intake and Output Vital Signs (last 24 hours): Temp Pulse Resp BP Pulse Ox 98.0 F 100 H 20 119/56 L 95 10/05/17 15:42 10/05/17 15:42 10/05/17 15:42 10/05/17 15:42 10/05/17 15:42 Intake and Output: 10/05/17 10/05/17 06:59 18:59 Intake Total 500 Balance 500 - Medications Medications: Current Medications Albuterol/Ipratropium (Duoneb 3 Mg/0.5 Mg (3 Ml) Ud) 3 ml INH RQ6 [facility] Last Admin: 10/05/17 13:09 Dose: Not Given Apixaban (Eliquis) 2.5 mg PO BID [facility] Last Admin: 10/05/17 11:38 Dose: Not Given Aspirin (Aspirin Chewable) 81 mg PO DAILY [facility] Last Admin: 10/05/17 14:44 Dose: 81 mg Calcium Acetate (Phoslo) 1,334 mg GT TID [facility] Last Admin: 10/05/17 14:44 Dose: 1,334 mg Epoetin Chencho (Procrit) 10,000 unit IV F [facility] Famotidine (Pepcid) 20 mg PO DAILY [facility] Last Admin: 10/05/17 14:44 Dose: 20 mg Ferric Sodium Gluconate Complex (Ferrlecit) 125 mg IVPB DAILY@1600 [facility] Stop: 10/12/17 16:01 Last Admin: 10/04/17 16:15 Dose: 125 mg Fluconazole (Diflucan) 100 mg PO DAILY [facility] Last Admin: 10/05/17 14:44 Dose: 100 mg Heparin Sodium (Porcine) (Heparin) 3,700 units IVP MWF [facility] Last Admin: 10/05/17 11:34 Dose: 3,700 units Insulin Aspart (Novolog) 0 unit SC Q6 [facility] PRN Reason: Protocol Last Admin: 10/05/17 12:00 Dose: Not Given Metoprolol Tartrate (Lopressor) 50 mg PO BID [facility] Last Admin: 10/05/17 11:39 Dose: Not Given Rosuvastatin Calcium (Crestor) 10 mg PO HS [facility] Last Admin: 10/04/17 21:14 Dose: 10 mg Saccharomyces Boulardii (Florastor) 250 mg PO BID [facility] Last Admin: 10/05/17 11:39 Dose: Not Given - Labs Labs: 10/04/17 08:00 10/04/17 08:00 PT 13.9 SECONDS (9.7-12.2) H 08/24/17 06:08 INR 1.2 08/24/17 06:08 APTT 55 SECONDS (21-34) H D 08/17/17 06:12 - Constitutional Appears: No Acute Distress - Head Exam Head Exam: ATRAUMATIC - ENT Exam ENT Exam: Mucous Membranes Moist - Respiratory Exam Respiratory Exam: Decreased Breath Sounds - Cardiovascular Exam Cardiovascular Exam: REGULAR RHYTHM Assessment and Plan (1) Cardiac arrest Assessment & Plan: Status post tracheostomy, on trach collar Continue antibiotics per ID Continue weaning for decannulation Status: Acute (2) Pneumonia Status: Acute (3) History of DVT (deep vein thrombosis) Status: Acute (4) CKD (chronic kidney disease) Status: Chronic (5) Acute on chronic renal failure Status: Resolved (6) CHF (congestive heart failure) Status: Acute
[2017-10-05] MEDS: Ferric Sodium Gluconat Complex 62.5 mg/5 ml Vial IVPB SCH (16:28)
--- NOTE | 2017-10-05 20:49 | CP.PCM.PN ---
Subjective - Date & Time of Evaluation Date of Evaluation: 10/05/17 Time of Evaluation: 06:00 - Subjective Subjective: dictated Objective - Vital Signs/Intake and Output Vital Signs (last 24 hours): Temp Pulse Resp BP Pulse Ox 98.0 F 100 H 20 119/56 L 95 10/05/17 15:42 10/05/17 15:42 10/05/17 15:42 10/05/17 15:42 10/05/17 15:42 Intake and Output: 10/05/17 10/06/17 18:59 06:59 Intake Total 0 Balance 0 - Medications Medications: Current Medications Albuterol/Ipratropium (Duoneb 3 Mg/0.5 Mg (3 Ml) Ud) 3 ml INH RQ6 [facility] Last Admin: 10/05/17 20:05 Dose: 3 ml Apixaban (Eliquis) 2.5 mg PO BID [facility] Last Admin: 10/05/17 18:57 Dose: 2.5 mg Aspirin (Aspirin Chewable) 81 mg PO DAILY [facility] Last Admin: 10/05/17 14:44 Dose: 81 mg Calcium Acetate (Phoslo) 1,334 mg GT TID [facility] Last Admin: 10/05/17 18:56 Dose: 1,334 mg Epoetin Chencho (Procrit) 10,000 unit IV F [facility] Famotidine (Pepcid) 20 mg PO DAILY [facility] Last Admin: 10/05/17 14:44 Dose: 20 mg Ferric Sodium Gluconate Complex (Ferrlecit) 125 mg IVPB DAILY@1600 [facility] Stop: 10/12/17 16:01 Last Admin: 10/05/17 16:28 Dose: 125 mg Fluconazole (Diflucan) 100 mg PO DAILY [facility] Last Admin: 10/05/17 14:44 Dose: 100 mg Heparin Sodium (Porcine) (Heparin) 3,700 units IVP MWF [facility] Last Admin: 10/05/17 11:34 Dose: 3,700 units Insulin Aspart (Novolog) 0 unit SC Q6 [facility] PRN Reason: Protocol Last Admin: 10/05/17 18:58 Dose: 3 unit Metoprolol Tartrate (Lopressor) 50 mg PO BID [facility] Last Admin: 10/05/17 18:55 Dose: 50 mg Rosuvastatin Calcium (Crestor) 10 mg PO [facility] Last Admin: 10/04/17 21:14 Dose: 10 mg Saccharomyces Boulardii (Florastor) 250 mg PO BID [facility] Last Admin: 10/05/17 18:57 Dose: 250 mg - Labs Labs: 10/04/17 08:00 10/04/17 08:00 PT 13.9 SECONDS (9.7-12.2) H 08/24/17 06:08 INR 1.2 08/24/17 06:08 APTT 55 SECONDS (21-34) H D 08/17/17 06:12
--- NOTE | 2017-10-05 23:22 | PN ---
DATE: SUBJECTIVE: The patient was seen today around 6:00. The patient's eyes were open. He appeared to be in no acute respiratory distress; however he has lot of secretions as we tried to turn him to see his back wound. He has a trach. PHYSICAL EXAMINATION: NECK: Supple. LUNGS: Decreased breath sounds. HERAT: S1, S2 regular. He has a dialysis catheter present. ABDOMEN: Soft with PEG tube. On the back, there was a huge ulcer which is 9 x 10, but it was not draining, has a blackish eschar to it and there was no drainage at this time. EXTREMITIES: Remain without edema. LABORATORY DATA: Labs were noted. His last white count is 15.1 this is from yesterday, we will repeat the white count tomorrow. His micro cultures have shown yeast on 09/20/2017 and he has been on Tygacil and Diflucan. PLAN: At this time, I think he has an unstageable ulcer and he is off antibiotics to continue with the local wound and I still see him on fluconazole. We will repeat the labs tomorrow and if the white count is decreasing, we will discontinue Diflucan. Allan Lawrence MD
--- NOTE | 2017-10-05 23:32 | CP.PCM.PN ---
Subjective - Date & Time of Evaluation Date of Evaluation: 10/05/17 Time of Evaluation: 15:40 - Subjective Subjective: Patient seen and evaluated Now with improved breathing Continue current meds Physical Examination - Constitutional Appears: Chronically Ill - Head Exam Head Exam: ATRAUMATIC, NORMAL INSPECTION, NORMOCEPHALIC - Eye Exam Eye Exam: EOMI Pupil Exam: NORMAL ACCOMODATION - ENT Exam ENT Exam: Mucous Membranes Moist - Neck Exam Additional comments: trach - Respiratory Exam Respiratory Exam: Clear to Ausculation Bilateral, NORMAL BREATHING PATTERN - Cardiovascular Exam Cardiovascular Exam: REGULAR RHYTHM - GI/Abdominal Exam GI & Abdominal Exam: Soft, Normal Bowel Sounds. absent: Distended, Tenderness - Extremities Exam Extremities Exam: absent: Joint Swelling, Tenderness - Back Exam Additional comments: 10x10 unstageable ulcer with healthy granulation tissue. No necrotic tissue. optifoam dressing with medihoney. Clear dry and intact - Neurological Exam Neurological Exam: Alert, Awake - Psychiatric Exam Psychiatric exam: Normal Affect, Normal Mood - Skin Skin Exam: Dry, Intact, Normal Color, Warm Objective - Vital Signs/Intake and Output Vital Signs (last 24 hours): Temp Pulse Resp BP Pulse Ox 98.0 F 100 H 20 119/56 L 95 10/05/17 15:42 10/05/17 15:42 10/05/17 15:42 10/05/17 15:42 10/05/17 15:42 Intake and Output: 10/05/17 10/06/17 18:59 06:59 Intake Total 0 Balance 0 - Medications Medications: Current Medications Albuterol/Ipratropium (Duoneb 3 Mg/0.5 Mg (3 Ml) Ud) 3 ml INH RQ6 [facility] Last Admin: 10/05/17 20:05 Dose: 3 ml Apixaban (Eliquis) 2.5 mg PO BID [facility] Last Admin: 10/05/17 18:57 Dose: 2.5 mg Aspirin (Aspirin Chewable) 81 mg PO DAILY [facility] Last Admin: 10/05/17 14:44 Dose: 81 mg Calcium Acetate (Phoslo) 1,334 mg GT TID [facility] Last Admin: 10/05/17 18:56 Dose: 1,334 mg Epoetin Chencho (Procrit) 10,000 unit IV [facility] [place] Famotidine (Pepcid) 20 mg PO DAILY [facility] Last Admin: 10/05/17 14:44 Dose: 20 mg Ferric Sodium Gluconate Complex (Ferrlecit) 125 mg IVPB DAILY@1600 [facility] Stop: 10/12/17 16:01 Last Admin: 10/05/17 16:28 Dose: 125 mg Fluconazole (Diflucan) 100 mg PO DAILY [facility] Last Admin: 10/05/17 14:44 Dose: 100 mg Heparin Sodium (Porcine) (Heparin) 3,700 units IVP MWF [facility] Last Admin: 10/05/17 11:34 Dose: 3,700 units Insulin Aspart (Novolog) 0 unit SC Q6 [facility] PRN Reason: Protocol Last Admin: 10/05/17 18:58 Dose: 3 unit Metoprolol Tartrate (Lopressor) 50 mg PO BID [facility] Last Admin: 10/05/17 18:55 Dose: 50 mg Rosuvastatin Calcium (Crestor) 10 mg PO HS [facility] Last Admin: 10/05/17 21:07 Dose: 10 mg Saccharomyces Boulardii (Florastor) 250 mg PO BID [facility] Last Admin: 10/05/17 18:57 Dose: 250 mg - Labs Labs: 10/04/17 08:00 10/04/17 08:00 PT 13.9 SECONDS (9.7-12.2) H 08/24/17 06:08 INR 1.2 08/24/17 06:08 APTT 55 SECONDS (21-34) H D 08/17/17 06:12 Assessment and Plan - Assessment and Plan (Free Text) Assessment: Assessment and Plan - Assessment and Plan (Free Text) Assessment: Atrial Fibrillation Intermittent Rate controlled. On Metoprolol 50 mg PO BID, Eliquis 2.5 mg PO BID CAD, chest pain -No current plans for cardiac cath (acute respiratory failure and elevated Cr) , history of abnormal stress test -Elevated Troponin likely due to chest compressions during cardiac arrest 08/10 -No acute ST changes on EKG -Continue ASA, Crestor, Metoprolol. -Echocardiogram from 08/08/17 showed left ventricle systolic function is severely impaired. EF: 25-30%; global hypokinesis of LV mild AR. MR is moderate. Moderate-severe pulmonary hypertension Systolic CHF exacerbation -CXR 09/09: Diminished bilateral basilar airspace disease; stable cardiomegaly -BNP 85084 on 08/06/17 -Continue ASA, Crestor, Metoprolol -Echocardiogram from 08/08/17 showed left ventricle systolic function is severely impaired. EF: 25-30%; global hypokinesis of LV mild AR. MR is moderate. Moderate-severe pulmonary hypertesnion Dobutamine discontinued in light of atrial flutter-type episodes Diabetes Mellitus ISS Continue to monitor ESRD on HD Currently on HD On Procrit and Phoslo Nephro on the case Prophylaxis Pepcid 20 mg PO daily Eliquis 2.5 mg PO BID (Renal precautions) Disposition Awaiting Transfer to LTAC
[2017-10-06] MEDS: (Novolog) Insulin Aspart, Recombinant 100 u/ml 10 ml vial SC SCH ×4 (00:19→18:59)
[2017-10-06] MEDS: Albuterol-Ipratrop 3 mg / 0.5 (3 ml) UD INH SCH ×4 (01:11→20:23)
[2017-10-06 08:33] LABS: BASO # 0.1 K/uL (0.0-0.2); BASO % 0.5 % (0.0-2.0); EOS # 0.1 K/uL (0.0-0.7); EOS % 0.7 % (0.0-4.0); HEMATOCRIT 28.1 % (35.0-51.0); LYMPH # 2.3 K/uL (1.0-4.3); LYMPH % 16.9 % (20.0-40.0); MEAN CELL VOLUME 80.7 fL (80.0-94.0); MEAN CORPUSCULAR HEMOGLOBIN 25.3 pg (27.0-31.0); MEAN CORPUSCULAR HGB CONC 31.4 g/dL (33.0-37.0); MEAN PLATELET VOLUME 9.1 fL (7.2-11.7); MONO # 1.1 K/uL (0.0-0.8); MONO % 8.1 % (0.0-10.0); RED CELL DISTRIBUTION WIDTH 24.5 % (11.5-14.5); WHITE BLOOD COUNT 13.5 K/uL (4.8-10.8)
[2017-10-06 08:48] LABS: POTASSIUM 3.6 mmol/L (3.6-5.2)
[2017-10-06 08:50] LABS: BILIRUBIN,TOTAL 0.6 mg/dL (0.2-1.3)
[2017-10-06 08:51] LABS: ALB/GLOB RATIO 0.7 (1.0-2.1); CALCIUM 8.5 mg/dl (8.6-10.4); MAGNESIUM 2.2 mg/dL (1.6-2.3); PHOSPHOROUS 3.6 mg/dL (2.5-4.5); TOTAL PROTEIN 5.6 g/dL (6.3-8.3)
[2017-10-06] MEDS: Saccharomyces Boulardi 250 mg Cap PO SCH ×2 (09:58→17:02)
--- NOTE | 2017-10-06 10:45 | CP.PCM.PN ---
Subjective - Date & Time of Evaluation Date of Evaluation: 10/06/17 Time of Evaluation: 10:43 - Subjective Subjective: Same confusional state stable dialysis 10/05 cannot obtain ROS Objective - Vital Signs/Intake and Output Vital Signs (last 24 hours): Temp Pulse Resp BP Pulse Ox 98.1 F 92 H 20 138/72 96 10/06/17 07:00 10/06/17 07:00 10/06/17 07:00 10/06/17 07:00 10/06/17 07:00 Intake and Output: 10/06/17 10/06/17 06:59 18:59 Intake Total 400 Balance 400 - Medications Medications: Current Medications Albuterol/Ipratropium (Duoneb 3 Mg/0.5 Mg (3 Ml) Ud) 3 ml INH RQ6 [facility] Last Admin: 10/06/17 07:36 Dose: 3 ml Apixaban (Eliquis) 2.5 mg PO BID [facility] Last Admin: 10/06/17 09:58 Dose: 2.5 mg Aspirin (Aspirin Chewable) 81 mg PO DAILY [facility] Last Admin: 10/06/17 09:58 Dose: 81 mg Calcium Acetate (Phoslo) 1,334 mg GT TID [facility] Last Admin: 10/06/17 09:58 Dose: 1,334 mg Epoetin Chencho (Procrit) 10,000 unit IV MWF [facility] Famotidine (Pepcid) 20 mg PO DAILY [facility] Last Admin: 10/06/17 09:58 Dose: 20 mg Ferric Sodium Gluconate Complex (Ferrlecit) 125 mg IVPB DAILY@1600 [facility] Stop: 10/12/17 16:01 Last Admin: 10/05/17 16:28 Dose: 125 mg Fluconazole (Diflucan) 100 mg PO DAILY [facility] Last Admin: 10/06/17 09:58 Dose: 100 mg Heparin Sodium (Porcine) (Heparin) 3,700 units IVP MWF [facility] Last Admin: 10/05/17 11:34 Dose: 3,700 units Insulin Aspart (Novolog) 0 unit SC Q6 [facility] PRN Reason: Protocol Last Admin: 10/06/17 06:20 Dose: 4 unit Insulin Detemir (Levemir) 30 unit SC Q12 [facility] Metoprolol Tartrate (Lopressor) 50 mg PO BID [facility] Last Admin: 10/06/17 10:01 Dose: 50 mg Rosuvastatin Calcium (Crestor) 10 mg PO HS [facility] Last Admin: 10/05/17 21:07 Dose: 10 mg Saccharomyces Boulardii (Florastor) 250 mg PO BID [facility] Last Admin: 10/06/17 09:58 Dose: 250 mg - Labs Labs: 10/06/17 08:20 10/06/17 08:20 PT 13.9 SECONDS (9.7-12.2) H 08/24/17 06:08 INR 1.2 08/24/17 06:08 APTT 55 SECONDS (21-34) H D 08/17/17 06:12 - Constitutional Appears: No Acute Distress, Chronically Ill - Head Exam Head Exam: ATRAUMATIC, NORMAL INSPECTION - Eye Exam Eye Exam: EOMI, Normal appearance - Neck Exam Neck Exam: Normal Inspection. absent: Tenderness - Cardiovascular Exam Cardiovascular Exam: REGULAR RHYTHM, +S1 - GI/Abdominal Exam GI & Abdominal Exam: Soft. absent: Tenderness - Neurological Exam Neurological Exam: Altered, Motor Sensory Deficit - Skin Skin Exam: Dry, Warm Assessment and Plan (1) Acute on chronic renal failure Status: Resolved (2) CAD (coronary artery disease) Status: Chronic (3) CHF exacerbation Status: Chronic (4) Type 2 diabetes mellitus with diabetic nephropathy Status: Acute (5) Cardiorenal disease Status: Acute (6) ESRD (end stage renal disease) Status: Acute - Assessment and Plan (Free Text) Plan: Same dialysis MWF Same meds IV Fe in progress Await placement
--- NOTE | 2017-10-06 10:58 | CP.PCM.PN ---
<Sina White - Last Filed: 10/06/17 13:09> Subjective - Date & Time of Evaluation Date of Evaluation: 10/06/17 Time of Evaluation: 10:51 - Subjective Subjective: Medicine Progress Note for Dr. Lazar HPI: Patient seen and examined at bedside. More awake and alert. ROS unattainable. Objective - Vital Signs/Intake and Output Vital Signs (last 24 hours): Temp Pulse Resp BP Pulse Ox 98.1 F 92 H 20 138/72 96 10/06/17 07:00 10/06/17 07:00 10/06/17 07:00 10/06/17 07:00 10/06/17 07:00 Intake and Output: 10/06/17 10/06/17 06:59 18:59 Intake Total 400 Balance 400 - Medications Medications: Current Medications Albuterol/Ipratropium (Duoneb 3 Mg/0.5 Mg (3 Ml) Ud) 3 ml INH RQ6 [facility] Last Admin: 10/06/17 07:36 Dose: 3 ml Apixaban (Eliquis) 2.5 mg PO BID [facility] Last Admin: 10/06/17 09:58 Dose: 2.5 mg Aspirin (Aspirin Chewable) 81 mg PO DAILY [facility] Last Admin: 10/06/17 09:58 Dose: 81 mg Calcium Acetate (Phoslo) 1,334 mg GT TID [facility] Last Admin: 10/06/17 09:58 Dose: 1,334 mg Epoetin Chencho (Procrit) 10,000 unit IV MWF [facility] Famotidine (Pepcid) 20 mg PO DAILY [facility] Last Admin: 10/06/17 09:58 Dose: 20 mg Ferric Sodium Gluconate Complex (Ferrlecit) 125 mg IVPB DAILY@1600 [facility] Stop: 10/12/17 16:01 Last Admin: 10/05/17 16:28 Dose: 125 mg Fluconazole (Diflucan) 100 mg PO DAILY [facility] Last Admin: 10/06/17 09:58 Dose: 100 mg Heparin Sodium (Porcine) (Heparin) 3,700 units IVP MWF [facility] Last Admin: 10/05/17 11:34 Dose: 3,700 units Insulin Aspart (Novolog) 0 unit SC Q6 [facility] PRN Reason: Protocol Last Admin: 10/06/17 06:20 Dose: 4 unit Insulin Detemir (Levemir) 30 unit SC Q12 [facility] Metoprolol Tartrate (Lopressor) 50 mg PO BID [facility] Last Admin: 10/06/17 10:01 Dose: 50 mg Rosuvastatin Calcium (Crestor) 10 mg PO HS [facility] Last Admin: 10/05/17 21:07 Dose: 10 mg Saccharomyces Boulardii (Florastor) 250 mg PO BID [facility] Last Admin: 10/06/17 09:58 Dose: 250 mg - Labs Labs: 10/06/17 08:20 10/06/17 08:20 PT 13.9 SECONDS (9.7-12.2) H 08/24/17 06:08 INR 1.2 08/24/17 06:08 APTT 55 SECONDS (21-34) H D 08/17/17 06:12 - Additional Findings Additional findings: - Constitutional Appears: Chronically Ill - Head Exam Head Exam: ATRAUMATIC, NORMAL INSPECTION, NORMOCEPHALIC - Eye Exam Eye Exam: EOMI Pupil Exam: NORMAL ACCOMODATION - ENT Exam ENT Exam: Mucous Membranes Moist - Neck Exam Additional comments: trach, blood in trach collar - Respiratory Exam Respiratory Exam: Clear to Ausculation Bilateral, NORMAL BREATHING PATTERN - Cardiovascular Exam Cardiovascular Exam: REGULAR RHYTHM, tachycardic - GI/Abdominal Exam GI & Abdominal Exam: Soft, Normal Bowel Sounds. absent: Distended, Tenderness - Extremities Exam Extremities Exam: absent: Joint Swelling, Tenderness - Back Exam Additional comments: 10x10 unstageable ulcer with healthy granulation tissue. No necrotic tissue. optifoam dressing with medihoney. Clear dry and intact - Neurological Exam Neurological Exam: Alert, Awake - Psychiatric Exam Psychiatric exam: Normal Affect, Normal Mood - Skin Skin Exam: Dry, Intact, Normal Color, Warm Additional comments: Bruising on b/l hips; eschar on the base of the anterior right thumb Assessment and Plan - Assessment and Plan (Free Text) Assessment: (1) Acute Respiratory Failure ARDS Cardiac Arrest Pulmonary Edema Nonstemi Assessment and Plan: * Code Blue on 08/10: asystole, cardiopulmonary resuscitative measures initiated , requiring 3 epis, bicarbonate, ROSC achieved and intubated and brought to the ICU for further management; Patient in the ICU from 08/10 until present. * Pulmonary: Dr Mena (Dr. Jeffers covering until 09/04/17)-->help appreciated * Cardiology: Dr. Cortés on board-->help appreciated * GI (Dr. Wills) on board-->help appreciated * S/P Tracheostomy 08/22 * S/P Peg tube placement 08/25 * s/p insertion of right posterior chest tube 08/19-->removed 08/24/17 * There was consideration for possible thoracentesis of left side pleural effusion, evaluated by IR, there is no fluid to drain per Dr. Gross * Chest xray (08/26): right arm PICC is seen with the tip of distal subclavian vein. PICC may be used * Per cardiology, * Restart Aspirin 81mg PO daily * Patient does not need Plavix at this time * Recommend for Eliquis 2.5mg PO BID for atrial flutter * 08/27: patient is pending LTAC, he went eventually need cardiac catheterization when he has stabilized. Held statin secondary to elevated LFTs. Discussed with Dr. Cortés, lowered Amiodarone 200mg PO daily * 08/28: patient is pending LTAC, he went eventually need cardiac catheterization when he has stabilized. Liver function tests improving * 08/29: Machine Hamper Maker Nehal has sent request to insurance for authorization for LTAC-->pending * 09/06: pending social work/case management approval for LTAC * 09/07: pending social work/case management approval for LTAC * 09/08: Unable to get approval for LTAC; pending other options * 09/09: Transferred from step-down ICU to the floors * 09/13: Trasnferred back to ICU S/P Rapid Response for low blood pressure * 09/14: Currently on Acetylcysteine 20 % Neb Q6H and Duoneb Q6H * 09/15: [place] Trach placed by Teacher Vocal (2) Abnormal Stress Test History of AICD History of Coronary Artery Disease Assessment and Plan: * Cardiology (Dr. Cortés) on board-->help appreciated * TSH: 1.16; T4: 1.53 * Echocardiogram (08/08/17): left ventricle systolic function is severely impaired. EF: 25-30%; global hypokinesis of left ventricle mild aortic regurgitation. Mitral regurgitation is moderate. Moderate-severe pulmonary hypertension * Plan was for cardiac catheterization; delayed due to acute renal failure; Attempted gentle hydration and mucomyst on 08/09 to optimize prior to cath * On 08/10, patient was in asystole, ACLS protocol, ROSC achieved, intubated and transfered to the ICU. Patient in acute pulmonary edema. * Patient hospitalized in the ICU since 08/10/17 to present. * Medications: * Aspirin 81mg PO daily * Plavix d/c by cardiology * Lopressor 50mg PO bid * d/c Crestor 10mg POqHS secondary to rise in LFTS 08/27--->monitor LFTs daily * ARB d/c secondary to acute renal failure * 08/27: patient is pending LTAC, he went eventually need cardiac catheterization when he has stabilized. Held statin secondary to elevated LFTs. Discussed with Dr. Cortés, lowered Amiodarone 200mg PO daily * 08/28: He will eventually need cardiac catheterization when he has stabilized. Liver function tests improving. Statin is on hold (3) Atrial flutter Assessment and Plan: * Cardiology (Dr. Cortés) on board-->help appreciated * Refractory to Lopressor/Cardizem IVP * Eliquis 2.5mg PO bid * Amiodarone bolus-->Amiodarine drip on 08/24-->converted to Amiodarone 200mg PO TID on 08/26 and this was decreased to 200 mg 1x/day due to increased LFTs * 08/27: Discussed with Dr. Cortés, will lower Amiodarone 200mg PO daily and monitor LFTs. Statin held and tylenol d/c * 08/29: patient is pending LTAC, he will eventually need cardiac catheterization when he has stabilized. Liver function tests improving. Statin is on hold due to the elevated LFTs * 08/30: Cardiology discontinued the Amiodarone * 09/07: Held eliquis; will need to resume * 09/09: Eliquis resumed, off Amiodarone Status: Acute (4) Acute on Chronic Systolic CHF exacerbation Assessment and Plan: * Cardiology (Dr. Cortés) on board-->help appreciated * Transferred to the ICU on 08/10 following cardiac arrest and intubation. * Echocardiogram (08/08/17): left ventricular systolic function is severely impaired. EF: 25-30%; global hypokinesis of left ventricle mild aortic regurgitation. Mitral regurgitation is moderate. Moderate-severe pulmonary hypertension * Medications: * Aspirin 81mg PO daily * Plavix d/c by cardiology * Lopressor 50mg PO bid * d/c Crestor 10mg POqHS on 08/27 secondary to rise in LFTs * ARB d/c secondary to acute renal failure Status: Acute (5) Leukocytosis Assessment and Plan: * Patient's white count downtrending * Pleural Fluid 08/19/17 did not show any growth * Blood cultures (08/26): no growth X5 days * UA and urine culture (08/27): Urine Culture showed Yeast Species. * Patient has elevated LFTs-->did not start anti-fungal in light of LFTs New: * 09/05/17 Blood: gram positive cocci-->pending speciation * 09/05/17 Blood: no growth after 4 days * 09/07/17 Legionella Culture: negative * 09/07/17 Mycobacteria: negative * 09/07/17 Sputum: Enterocloace Bacter; yeast * 09/07/17 Blood: negative X 48 hours * 09/07/17 Blood: negative X 48 hours * 09/06: stool culture pending; has not had diarrhea or bowel movement * 09/07: Dr. Zimmer (covering Dr. Lawrence) to see the patient given elevated procalcitonin * Blood Culture 09/13/17 is negative to date and Urine Culture 09/13/17 showed Yeast Species * 09/14: Could this be secondary to the Septic Shock? Secondary to Osteomyelitis of the Sacrum? 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) and Meropenem 500 mg IV Q8H (09/13/17 through 09/16/17), Diflucan 200 mg PO 1x/day (09/13/17), Bactrim 10 mL PO Q12H (09/12/17 through 09/16/17), Tigecycline 50 mg IV Q12H (09/16/17 started because of VRE on Sacrum Wound Culture 09/14/17) * ESR 09/14/17 elevated at 89 * Bone Scan performed 09/17/17 to check for Osteomyelitis at the Sacrum: results are pending * Meropenem 500 mg IV Q12H (09/13/17 through 09/16/17: which will cover the Enterbacter in the Sputum 09/07/17 and the possibility of Sacral Osteomyelitis) * Antibiotics as of 09/17/17:Tigecycline (09/16/17: which will cover the VRE in Sacral Wound Culture 09/14/17 and the possibility of Sacral Osteomyelitis) and Diflucan 200 mg PO 1x/day (09/13/17: which will cover with Yeast in the Sputum, Urine, and Sacral Wound Culture) Status: Acute (6) Pneumonia Assessment and Plan: * Pulmonary (Dr. Mena) on board-->help appreciated; Dr. Jeffers covering while Dr. Mena away * Infectious Disease (Dr. Lawrence)-->help appreciated * Chest xray (08/26): right arm PICC is seen with the tip of distal subclavian vein. PICC may be used * Rapid A strep, Influenza A and B studies, Urine Legionella, Mycoplasma studies = Negative * Florastor 250mg PO bid * 08/07/17: +Strep Pneumoniae in the urine * Meropenem 500mg IV Q 8 hours (08/14/17 through 08/18/17) and Zosyn 2.25 mg IV Q6H (08/13/17 through 08/18/17) * Cefepime 1 gm IV Q24H: started on 08/19/17 and was discontinued by ID Dr. Lawrence on 08/30/17: monitor vitals and labs * s/p right posterior chest tube 08/19-08/24 * Sputum Culture 08/19/17 shows No growth * Pleural fluid 08/19/17: No growth * 09/07/17 Sputum: Enterocloace Bacter and Yeast Species: See Antibiotic treatment in previous Assessment and Plan * Sputum 09/10/17 shows NO AFB Status: Acute (7) HTN (hypertension) Assessment and Plan: * Lopressor 50mg PO bid * Lisinopril 5mg PO daily Status: Chronic (8) CKD (chronic kidney disease) on Dialysis Assessment and Plan: * Dr. Miranda (nephrology) consulted on the case * Hx of CKD-->Started on dialysis 08/15/17 * Kurtis catheter placed and removed 08/22 * s/p Right Chest Permcath 08/22 * Patient is on dialysis -W-; oliguric * Phoslo 1334mg GT TID * Epoetin 10,000 unit IV MWF Status: Acute (9) Diabetes mellitus Assessment and Plan: * Accuchecks Q6H * HgbA1c 8.4 * Started peg feedings on 08/26/17 * Nepro-->50 ml/hour but this was held 09/13/17 due suspicion of Bowel Obstruction as NO bowel Movement since 09/07/17. This was restarted on after NO obstruction was observed on Obstruction Series 09/13/17 and after multiple bowel movement s/p Fleet Enema 09/13/17 (10) HLD (hyperlipidemia) Assessment and Plan: * 08/27: held Crestor 10 mg PO HS secondary to rise in LFTs * 08/29: Liver function tests improving; waiting to restart statin Status: Chronic (11) Anemia Assessment and Plan: * Heme-oncology (Dr. Giles bender) on board-->help appreciated * Likely iron deficiency anemia based on prior admissions * Ferritin 27.4, Iron 22, TIBC 322, % Saturation 7 * Ferric Sodium Gluconate 125mg IVPB daily (active 08/08-08/16) * Procrit 10,000 units -- * Monitor Hgb/Hct: stable Status: Chronic (12) History of DVT (deep vein thrombosis) Assessment and Plan: * Patient was previously on Eliquis for a prior history of DVT. * Repeat dopplers 08/09/17 are negative for DVT * Off Heparin Drip 08/17/17 * Started Eliquis 2.5mg PO BID for atrial flutter and history of DVT Status: Chronic (13) UTI Assessment and Plan: * Infectious disease (Dr. Lawrence) on board-->help appreciated * Exchange jaquez out and repeat urine cultures * Urine Culture 08/12/17 showed Gram Negative Rods: NO identification and NO sensitivities were performed * Meropenem 500mg IV Q 12hours (active since 08/14/17 through 08/18/17) to cover for UTI per ID * Repeat Urine Culture 08/18/17 shows NO growth * 08/25: reculture in light of leukocytosis * 08/27: pending urine studies * 08/30: Urine Culture 08/27/17 showed Yeast Species but no antifungal at that time secondary to recent history of Elevated LFTs * Urine Culture 09/13/17 showed Yeast Species: he is on Diflucan Status: Chronic (14) Confusion; Alzheimer's Dementia Assessment and Plan: * Per daughter, patient has been getting bouts of confusion over the past year but appears at baseline. Patient has not seen formal neurology as outpatient per daughter. Per , prior to event, noted Alzheimers' disease dx one year ago * CT head w/o contrast (08/10/17):acute os subacute lacune infarct is not excluded in the left basal ganglia inferiorly with definitive chronic lacune identified in the right basal ganglia superiorly. No acute or subacute lobar brain infarction is appreciable by standard CT criteria. Mild age-related neuro degenerative changes are identifed. No acute intracranial hemorrhage or mass is identified throughout * 08/26: Off Sedation-->patient moves all extremities randomly but does not follow directions * 08/27: off sedation-->patient is very calm, smiles at his * 08/28: off sedation-->patient is very calm Status: Chronic (15) Unstageable Sacral Ulcer, Left Ear Auricle Ulcer, Right Heal Ulcer Assessment and Plan: * Wound care on board * WOUND CARE NOTE (08/26)-->Pt with a sacral unstageable being treated with medihoney. No changes to dimensions at this time. Also, pt favoring Left side of head and has developed a 1x1 serous filled blister on his left ear. Primary nurse placed duoderm on the ear. Wound care nurse left duoderm in place , and recommends leaving it on until it falls off on its own. Pt has been NPO for several days, new peg inserted yesterday. Will be starting glucerna tube feedings later today. Albumin 3.3 * Turn q 2 hours * medihoney on unstageable ulcer * duoderm on left ear aurical ulcer: this is healed as of 09/15/17 * Prevalon Boots for Right Heal Blister 09/13/17 * 09/02/17: examined with Wound Care Nurse Emeka Samuel and periphery of the Sacral Wound is pink with some bleeding however center is still black and therefore still unstageable. Continue spray with Cavelon followed by thick coating with MediHoney followed by covering with OptiFoam once a day. * 09/03/17: Change of sacral ulcer dressing was performed by me with assitance from Nurse Esmer * 09/04/17: 09/03/17: Change of sacral ulcer dressing was performed by me with assistance from ALEXANDRA Unger * Per wound care note (09/07): sacral ulcer is stable per wound care nurse * 09/14/17: Sacral Ulcer is unstageable and area of blackness fills entire circumference. General Surgery consult placed to see if debridement is necessary. Continue Cavelon N[place] followed by paulina thick coating of MediHoney followed by covering with OptiFoam. * 09/15/17: Surgery Team debrided Sacral Ulcer and Bone Scan will need to be followed up which was performed 09/17/17 * 09/18/17: With the help of Nurse Guzman, applied Cavelon [place] followed by thick coating of MediHoney followed by covering with OptiFoam * 09/19/17: Dressing for Sacral Ulcer already changed before my exam. Explained to Nurse Guzman that best application of MediHoney would be to cover the padding of the OptiFoam with it and then apply the OptiFoam to the ulcer. Status: Acute (16) Elevated LFTs Assessment and Plan: * 08/27: Yina * Discussed with cardiology-->changed amiodarone 200mg PO tid to amiodaron 200mg PO daily * D/C tylenol * Held Statin * patient is also on Rocephin to cover for pneumonia * Will not start antifungal * 08/29: starting to down trending since change in amiodarone dose; awaiting to restart statin * 08/30: continues to trend down. Amiodarone was discontinued * 09/01: AST, ALT, Alk Phos still elevated but stable * 09/02: AST, ALT, Alk Phos still elevated but stable * 09/03: LFTs stable * 09/04: LFTs stable Status: Acute (17). Hx Constipation * Monitor bowel movement * Multiple bowel movements on 09/13/17 and 09/14/17 that are well formed s/p Fleet Enema on 09/13/17 * 09/15/17: NO bowel movement * 09/16/17: Soft pasty bowel movement * 09/17/17: Soft pasty bowel movement * 09/18/17: NO bowel movement * 09/19/17: ordered one dose of Lactulose 20 gm via PEG as still no bowel movement (18). Hyponatremia * 09/19/17: at 127 monitor for now (19). Prophylactic measure Assessment and Plan: * Pepcid 20mg PO daily * Start Eliquis 2.5mg PO BID * s/p peg placement 08/25 * s/p trachesostomy 08/22 * s/p Permcath placement 08/22 removal Kurtis catheter * s/p right posterior chest tube 08/19-->removed 08/24 * s/p Right Arm PICC 08/26 * (Jovita Serrano): -->number provided to the nurse- ->consented for peg placement; discussed about LTAC 08/26 * Spoke with Dr. Pickard, PMD regarding patient's hospitalization up until this point 08/2609/01/17: Dr. Cullen Barth spoke with the patient's [place] with the assistance of Nurse Campos on 3 tower (as multiple attempts of using Nasseod indicated that all of the Portuguese translators were busy) and explained all of the patient's diagnosises. 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 Her ultimate wish is to take patient to [facility] where their children live. I explained to patient that I would not know how that would be coordinated but that the Social Workers/Corporate Meeting Planner at LTAC may be of assistance in this regard. I also informed her that I am not aware of any insurance company that would finance this request. She understands that the patient is awaiting insurance approval for LTAC. 09/01/17 and 09/02/17: Dr. Cullen Barth spoke with High Speed Warper Tender Demetria and we are still awaiting insurance authorization for LTAC placement. 09/05/17: Spoke with nehal medical social consultant, wean trials sent to LTAC pending approval no word yet regarding approval. Ordered for repeat cultures given uptrend in white count. 09/06/17: pending repeat cultures in light of elevated procalcitonin; ID recommended to reculture. Note: patients PICC lined had clogged ports. Red port remains clogged in spite of cath rafaela. Blue port improved after cath rafaela. Possible may need to remove line to r/o infected line. Strong suspicion due to patient's pneumonia given he has thick secretions. 09/07/17: Infectious disease. pending repeat cultures in light of elevated procalcitonin; Note: patients PICC lined had clogged ports. Red port remains clogged in spite of cath rafaela. Blue port improved after cath rafaela. Hip xray negative for acute fracture. There are no noted falls. 09/08/17: Patient denied for LTAC; awaiting for other options from case management/social work. Resident Daniel spoke with Dr. Cortés, patient be transferred under regular bed, when bed is available. Infectious disease on board; Patient started on IV Vancomycin in light of + blood culture. Pending chest xray. 09/09/17: Patient denied for LTAC; awaiting for other options from case management/social work with kamlesh verdin support. Patient started on IV Vancomycin MWF in light of + blood culture. Pending chest xray. F/U sputum with ID. f/u latest blood cultures. 09/13/17: Rapid response for low blood pressure and elevated WBC likely Septic Shock. Started on Levophed, added Meropenem to Vancomycin and 1 dose of Gentamycin given after speaking with ID. Ordered Obstruction Series as no bowel movement since 09/07/17. F/U Shock Panel. Discussed with ICU Resident to arrange for Change of Right Arm Midline line and Trach Collar. 09/14/17: Will await results of Blood Culture 09/13/17 to determine if the Right Arm Midline, Right Chest Perm Cath, and Trach Collar needs to be changed. Spoke with High Speed Warper Tender Demetria in ICU and patient information has been sent to [facility] and [place] (they accept patients on Trach) and she is awaiting to hear back from them before submitting approval request to insurance company. 09/15/17: [place] Trach placed by Teacher Vocal. Surgical Team for debridement of Sacral Ulcer. Spoke with patient's (IN DEM[place] Denisa [id number]) and explained/updated her on patient condition and obtained consent for sacral ulcer debridement. 09/16/17: Still awaiting performance of Sacral Bone Scan 09/17/17: Bone Scan performed and awaiting results 09/18/17: Awaiting Bone Scan Report 09/19/17: Still awaiting Bone Scan Report. Spoke again with High Speed Warper Tender Demetria and NO word yet from Nursing [facility] or [place] (they do treat patients with Trachs). 09/20/17: Repeat Wound culture and urine culture sent. Dressing changed with medihoney and optifoam. No other changes at this time. Still waiting for approval for [facility] 09/21/17: No changes at this time. Will continue to change wound dressing Q3D and follow up with case management for for group home transfer. 09/22/17: Dressing changed today with medihoney. Healing appropriately. Talked to case management. Still no update from skilled nursing transfer. Bone scan negative for osteo. Repeat wound cultures continue to grow Enterococcus. Will follow up sensitivities 09/26/17: Dialysis today. Dressing changed with optifoam and medihoney (nickel thick). VRE/germania in wound. Talked to case management. No updates at this time 09/27/17: dressing changed today with optifoam and medihoney (Nickel thick). Case management says no new information from [facility]. Will update as new information becomes available. 09/28/17: dressing changed today with optifoam and medihoney (Nickel thick). Case management says no new information from [facility]. Will update as new information becomes available. 3x3cm unstageable ulcer on R. heel present. Will talk to surgery for possible bedside debridment. 09/29/17:Talked to case management again today. No new information. Patient is tachycardiac and having blood tinged sputum in his trach collar. Will order a chest xray. 09/30/17: Talked to case management again today. No new information. went for dialysis yesterday due to excess fluid. Changed dressing at bedside today. 10/03/17: Dressing changed daily. Talked to ID on duration of Tigecycline, will evaluate wound. Surgery will also evaluate wound. Accepted at [facility]. Needs 2 days for authorization. Plan discharge on Tuesday10/04/17: Surgery saw and evaluated the wound today. They said no surgical intervention is needed. Talked to case management and still planning for discharge on Tuesday. Will follow up with ID on Tigecyline duration. 10/05/17: [facility] Social work and case management is looking for a new skilled nursing at the moment. Tigecycline has been discontinued per ID. No other updates at this time. 10/06/17: Patient had dressing changed today. Diflucan has been d/c today per ID. No other updates from has management <Mariangel Lazar V - Last Filed: 10/12/17 12:38> Objective - Vital Signs/Intake and Output Vital Signs (last 24 hours): Temp Pulse Resp BP Pulse Ox 98.3 F 108 H 18 99/55 L 98 10/12/17 07:43 10/12/17 08:00 10/12/17 07:43 10/12/17 07:43 10/12/17 07:43 - Medications Medications: Current Medications Acetylcysteine (Acetylcysteine 20%) 4 ml INH RQ6 [facility] Last Admin: 10/12/17 07:18 Dose: 4 ml Albuterol/Ipratropium (Duoneb 3 Mg/0.5 Mg (3 Ml) Ud) 3 ml INH RQ6 [facility] Last Admin: 10/12/17 07:18 Dose: 3 ml Apixaban (Eliquis) 2.5 mg PO BID [facility] Last Admin: 10/12/17 09:46 Dose: 2.5 mg Aspirin (Aspirin Chewable) 81 mg PO DAILY [facility] Last Admin: 10/12/17 09:45 Dose: 81 mg Epoetin Chencho (Procrit) 10,000 unit IV MWF [facility] Last Admin: 10/10/17 09:49 Dose: 10,000 unit Famotidine (Pepcid) 20 mg PO DAILY [facility] Last Admin: 10/12/17 09:46 Dose: 20 mg Ferric Sodium Gluconate Complex (Ferrlecit) 125 mg IVPB DAILY@1600 [facility] Stop: 10/12/17 16:01 Last Admin: 10/11/17 17:48 Dose: 125 mg Cefepime HCl 1 gm/ Dextrose 50 mls @ 100 mls/hr IVPB Q24H [facility] Last Admin: 10/12/17 09:00 Dose: 100 mls/hr Ciprofloxacin (Cipro 200mg/100ml D5w) 100 mls @ 67 mls/hr IVPB Q12H [facility] Last Admin: 10/12/17 09:45 Dose: 67 mls/hr Insulin Aspart (Novolog) 0 unit SC Q6 [facility] PRN Reason: Protocol Last Admin: 10/12/17 05:53 Dose: 1 unit Insulin Detemir (Levemir) 30 unit SC Q12 [facility] Last Admin: 10/12/17 09:46 Dose: 30 unit Lisinopril (Zestril) 5 mg PO DAILY [facility] Last Admin: 10/12/17 11:30 Dose: Not Given Metoprolol Tartrate (Lopressor) 50 mg PO BID [facility] Last Admin: 10/12/17 11:30 Dose: Not Given Rosuvastatin Calcium (Crestor) 10 mg PO HS [facility] Last Admin: 10/11/17 21:20 Dose: 10 mg Saccharomyces Boulardii (Florastor) 250 mg PO BID [facility] Last Admin: 10/12/17 09:46 Dose: 250 mg - Labs Labs: 10/12/17 08:58 10/12/17 08:58 PT 13.9 SECONDS (9.7-12.2) H 08/24/17 06:08 INR 1.2 08/24/17 06:08 APTT 55 SECONDS (21-34) H D 08/17/17 06:12 Attending/Attestation - Attestation I have personally seen and examined this patient.: Yes I have fully participated in the care of the patient.: Yes I have reviewed all pertinent clinical information, including history, physical exam and plan: Yes Notes (Text): This is late computer entry for 10/06/17. Patient seen, examined, and case discussed with day-time resident. Patient is awake and alert, will follow basic directions such as moving arms. Spoke with Sunni, speech language pathologist, who see the patient to see if patient will attempt to speak and the appropriate voice-valve. Will follow-up with pulmonary to see when patient can be decannulate. Discussed with case management, will need to re-attempt to dialysis spot. Resident discussed with Kizzy MITCHELLlucan discontinued today. Please note assessment/Plan is updated in attending note. Assessment/Plan (1) Acute Respiratory Failure ARDS Cardiac Arrest Pulmonary Edema Nonstemi Assessment and Plan: * Code Blue on 08/10: asystole, cardiopulmonary resuscitative measures initiated , requiring 3 epis, bicarbonate, ROSC achieved and intubated and brought to the ICU for further management; Patient in the ICU from 08/10 until present. * Pulmonary: Dr Mena (Dr. Jeffers covering until 09/04/17)-->help appreciated * Cardiology: Dr. Cortés on board-->help appreciated * GI (Dr. Wills) on board-->help appreciated * S/P Tracheostomy 08/22 * S/P Peg tube placement 08/25 * s/p insertion of right posterior chest tube 08/19-->removed 08/24/17 * Passy Flex Trach placed 09/15 * There was consideration for possible thoracentesis of left side pleural effusion, evaluated by IR, there is no fluid to drain per Dr. Gross * Chest xray (08/26): right arm PICC is seen with the tip of distal subclavian vein. PICC may be used * Chest Xray (09/20/17): lines and tubes stable position, left-sided pacemaker, moderate venous congestion, left basilar opacity with associated small left pleural effusion, Cardiomegaly. Prominent aorta, degenrative changes in spine and shoulders * Medications: * Acetylcysteine 20% 4ml INH RQ6H * Duoneb 3ml INH RQ6H * Aspirin 81mg PO daily * Eliquis 2.5mg PO bid * Lopressor 50mg PO bid * 10/03: pulmonary note: reports attempt at decannulation; will follow-up (2) Abnormal Stress Test History of AICD History of Coronary Artery Disease Assessment and Plan: * Cardiology (Dr. Cortés) on board-->help appreciated * TSH: 1.16; T4: 1.53 * Echocardiogram (08/08/17): left ventricle systolic function is severely impaired. EF: 25-30%; global hypokinesis of left ventricle mild aortic regurgitation. Mitral regurgitation is moderate. Moderate-severe pulmonary hypertension * Plan was for cardiac catheterization; delayed due to acute renal failure; Attempted gentle hydration and mucomyst on 08/09 to optimize prior to cath * On 08/10, patient was in asystole, ACLS protocol, ROSC achieved, intubated and transfered to the ICU. Patient in acute pulmonary edema. * Patient hospitalized and require to and from ICU twice during this admission * Cardiac cath postponed at this time * Medications: * Acetylcysteine 20% 4ml INH RQ6H * Duoneb 3ml INH RQ6H * Aspirin 81mg PO daily * Eliquis 2.5mg PO bid * Lopressor 50mg PO bid * Restart Crestor 5mg POqHS (3) Atrial flutter Assessment and Plan: * Cardiology (Dr. Cortés) on board-->help appreciated * Refractory to Lopressor/Cardizem IVP * Eliquis 2.5mg PO bid * Off Amiodarone per cardiology * c/w Lopressor 50mg PO bid Status: Resolved (4) Acute on Chronic Systolic CHF exacerbation Assessment and Plan: * Cardiology (Dr. Cortés) on board-->help appreciated * Transferred to the ICU on 08/10 following cardiac arrest and intubation. * Echocardiogram (08/08/17): left ventricular systolic function is severely impaired. EF: 25-30%; global hypokinesis of left ventricle mild aortic regurgitation. Mitral regurgitation is moderate. Moderate-severe pulmonary hypertension * Medications: * Aspirin 81mg PO daily * Lopressor 50mg PO bid * ARB d/c secondary to acute renal failure * Restart statin given LFTs normalized Status: Stable (5) Leukocytosis Assessment and Plan: * Pleural Fluid 08/19/17 did not show any growth * Blood cultures (09/13): no growth X5 days X2 * Blood cultures (09/07) during dialysis: no growth X5 days X2 * UA and urine culture (08/27): Yeast Species. * UA and urine culture (09/13): Yeast Species. * Urine culture (09/20: Yeast species * 09/07/17 Legionella Culture: negative * 09/07/17 Mycobacteria: negative * 09/07/17 Sputum: Enterocloace Bacter; yeast * Blood cultures (09/13): no growth X5 days X2 * Blood cultures (09/07) during dialysis: no growth X5 days X2 * Sacral Ulcer (09/14/17): VRE and Germania Albicans * Sacral Ulcer (09/15/17): VRE and Germania Albicans * Sacral Ulcer (09/20/17): VRE and Germania Albicans * Bone Scan performed 09/17/17 to check for Osteomyelitis at the Sacrum: negative for osteomyelitis * c/w Tigecycline (09/16/17): which will cover the VRE in Sacral Wound Culture 09/14/17 and repeat on 09/20/17--to finish today 10/05/17 * c/w Diflucan 200 mg PO 1x/day (09/13/17; Day 20): which will cover with Yeast in the Sputum, Urine, and Sacral Wound Culture-->stopped on 10/06/17 * Procalcitionin: 8.60 (09/06/17)-->5.80 (09/20)-->2.80 Status: Acute (6) Pneumonia Assessment and Plan: * Pulmonary (Dr. Mena) on board-->help appreciated * Infectious Disease (Dr. Lawrence)-->help appreciated * Chest xray (08/26): right arm PICC is seen with the tip of distal subclavian vein. PICC may be used * Rapid A strep, Influenza A and B studies, Urine Legionella, Mycoplasma studies = Negative * Florastor 250mg PO bid * 08/07/17: +Strep Pneumoniae in the urine * Meropenem 500mg IV Q 8 hours (08/14/17 through 08/18/17) and Zosyn 2.25 mg IV Q6H (08/13/17 through 08/18/17) * Cefepime 1 gm IV Q24H: started on 08/19/17 and was discontinued by ID Dr. Lawrence on 08/30/17: monitor vitals and labs * s/p right posterior chest tube 08/19-08/24 * Sputum Culture 08/19/17 shows No growth * Pleural fluid 08/19/17: No growth * 09/07/17 Sputum: Enterocloace Bacter and Yeast Species: See Antibiotic treatment in previous Assessment and Plan * Sputum 09/10/17 shows NO AFB Status: Acute (7) HTN (hypertension) Assessment and Plan: * Lopressor 50mg PO bid * Lisinopril 5mg PO daily Status: Chronic (8) CKD (chronic kidney disease) on Dialysis Assessment and Plan: * Dr. Miranda (nephrology) consulted on the case * Hx of CKD-->Started on dialysis 08/15/17 * Kurtis catheter placed and removed 08/22 * s/p Right Chest Permcath 08/22 * Patient is on dialysis M-W-F; oliguric * Phoslo 1334mg GT TID * Epoetin 10,000 unit IV MWF Status: Chonic (9) Diabetes mellitus Assessment and Plan: * Accuchecks Q6H * HgbA1c 8.4 * Started peg feedings on 08/26/17 * Nepro-->50 ml/hour but this was held 09/13/17 due suspicion of Bowel Obstruction as NO bowel Movement since 09/07/17. This was restarted on after NO obstruction was observed on Obstruction Series 09/13/17 and after multiple bowel movement s/p Fleet Enema 09/13/17 (10) HLD (hyperlipidemia) Assessment and Plan: * LFTS have normalized; will restart statin 09/20/17 Status: Chronic (11) Anemia Assessment and Plan: * Heme-oncology (Dr. Giles bender) on board-->help appreciated * Likely iron deficiency anemia based on prior admissions * Ferritin 27.4, Iron 22, TIBC 322, % Saturation 7 * Ferric Sodium Gluconate 125mg IVPB daily (active 08/08-08/16) * Procrit 10,000 units M-W- * Monitor Hgb/Hct: stable Status: Chronic (12) History of DVT (deep vein thrombosis) Assessment and Plan: * Patient was previously on Eliquis for a prior history of DVT. * Repeat dopplers 08/09/17 are negative for DVT * Off Heparin Drip 08/17/17 * Started Eliquis 2.5mg PO BID for atrial flutter and history of DVT Status: Chronic (13) UTI Assessment and Plan: * Infectious disease (Dr. Lawrence) on board-->help appreciated * Exchange jaquez out and repeat urine cultures * Urine Culture 08/12/17 showed Gram Negative Rods: NO identification and NO sensitivities were performed * Meropenem 500mg IV Q 12hours (active since 08/14/17 through 08/18/17) to cover for UTI per ID * Repeat Urine Culture 08/18/17 shows NO growth * 08/25: reculture in light of leukocytosis * 08/27: pending urine studies * 08/30: Urine Culture 08/27/17 showed Yeast Species but no antifungal at that time secondary to recent history of Elevated LFTs * Urine Culture 09/13/17 showed Yeast Species: he is on Diflucan Status: Chronic (14) Confusion; Alzheimer's Dementia Assessment and Plan: * Per daughter, patient has been getting bouts of confusion over the past year but appears at baseline. Patient has not seen formal neurology as outpatient per daughter. Per , prior to event, noted Alzheimers' disease dx one year ago * CT head w/o contrast (08/10/17):acute os subacute lacune infarct is not excluded in the left basal ganglia inferiorly with definitive chronic lacune identified in the right basal ganglia superiorly. No acute or subacute lobar brain infarction is appreciable by standard CT criteria. Mild age-related neuro degenerative changes are identifed. No acute intracranial hemorrhage or mass is identified throughout * 08/26: Off Sedation-->patient moves all extremities randomly but does not follow directions * 08/27: off sedation-->patient is very calm, smiles at his * 08/28: off sedation-->patient is very calm Status: Chronic (15) Unstageable Sacral Ulcer, Left Ear Auricle Ulcer, Right Heal Ulcer Assessment and Plan: * Wound care on board * WOUND CARE [id number] patients sacral ulcer. Base softening up. Must continue medi-honey (nickel thick) then cover with a bordered dressing to be done daily. Patient must be repositioned frequently to optimize offloading of sacral region. Right heel is dark purple in color. Must continue to elevate both heels at all times to optimize heel offloading. Hemoglobin-9.6, Marshal of 14. Patient continues to be at risk for skin breakdown. will continue to follow. 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/14/17): VRE and Germania Albicans * Sacral Ulcer (09/15/17): VRE and Germania Albicans * Sacral Ulcer (09/20/17): VRE and Germania Albicans * Bone Scan performed 09/17/17 to check for Osteomyelitis at the Sacrum: negative for osteomyeliti * Daily wound care and dressing change by medicine team; healing appropriately Antibiotics * c/w Tigecycline (09/16/17: which will cover the VRE in Sacral Wound Culture and repeat on 09/20/17-->PER ID, d/c 10/15/17 * c/w Diflucan 200 mg PO 1x/day (09/13/17; Day 20): which will cover with Yeast in the Sputum, Urine, and Sacral Wound Culture--> PER ID, D/c 10/06/17 * Procalcitionin: 8.60 (09/06/17)-->5.80 (09/20)-->2.80 (10/04) Status: Acute (16) Elevated LFTs Assessment and Plan: * Have normalized * Currently on Diflucan since 09/13/17 (17). Hx Constipation * Monitor bowel movement * 09/25/17 had bowel movement today (18). Hyponatremia * 09/19/17: at 127 monitor for now (19). Prophylactic measure Assessment and Plan: * Pepcid 20mg PO daily * Start Eliquis 2.5mg PO BID * s/p peg placement 08/25 * s/p trachesostomy 08/22 * s/p Permcath placement 08/22 removal Kurtis catheter * s/p right posterior chest tube 08/19-->removed 08/24 * s/p Right Arm PICC 08/26 * Passy Flex Trach placed 09/15 * (Jovita eSrrano): -->number provided to the nurse- ->consented for peg placement; discussed about LTAC 08/26 * Spoke with Dr. Pickard, [place] regarding patient's hospitalization up until 08/26 Disposition: * Awaiting from case management in regards to discharge to subacute rehab---> will need to restart process to secure dialysis placement * Diflucan d/c 10/06/17 * Will need to f/u with pulm regarding when patient can be decannulated * Will need to follow-up with speeh language pathology about speaking
[2017-10-06] MEDS: Insulin Detemir 100 units/ml Vial (Levemir) SC SCH ×2 (11:38→22:40)
[2017-10-06] MEDS: Ferric Sodium Gluconat Complex 62.5 mg/5 ml Vial IVPB SCH (16:56)
[2017-10-06 21:32] LABS: URINE BACTERIA OCC (<OCC); URINE BILIRUBIN NEGATIVE (NEGATIVE); URINE BLOOD NEGATIVE (NEGATIVE); URINE COLOR Amber (YELLOW); URINE GLUCOSE (UA) NORMAL (Normal); URINE KETONE NEGATIVE (NEGATIVE); URINE LEUKOCYTE ESTERASE 3+ Leu/uL (Negative); URINE PROTEIN NEGATIVE (NEGATIVE); URINE UROBILINOGEN NORMAL mg/dL (0.2-1.0); WBC URINE 197 /hpf (0-5)
--- NOTE | 2017-10-07 00:14 | CP.PCM.PN ---
Subjective - Date & Time of Evaluation Date of Evaluation: 10/06/17 Time of Evaluation: 10:20 - Subjective Subjective: Patient seen and evaluated Denies chest pain and dyspnea No cardiac events noted Physical Examination - Constitutional Appears: Chronically Ill - Head Exam Head Exam: ATRAUMATIC, NORMAL INSPECTION, NORMOCEPHALIC - Eye Exam Eye Exam: EOMI Pupil Exam: NORMAL ACCOMODATION - ENT Exam ENT Exam: Mucous Membranes Moist - Neck Exam Additional comments: trach - Respiratory Exam Respiratory Exam: Clear to Ausculation Bilateral, NORMAL BREATHING PATTERN - Cardiovascular Exam Cardiovascular Exam: REGULAR RHYTHM - GI/Abdominal Exam GI & Abdominal Exam: Soft, Normal Bowel Sounds. absent: Distended, Tenderness - Extremities Exam Extremities Exam: absent: Joint Swelling, Tenderness - Back Exam Additional comments: 10x10 unstageable ulcer with healthy granulation tissue. No necrotic tissue. optifoam dressing with medihoney. Clear dry and intact - Neurological Exam Neurological Exam: Alert, Awake - Psychiatric Exam Psychiatric exam: Normal Affect, Normal Mood - Skin Skin Exam: Dry, Intact, Normal Color, Warm Objective - Vital Signs/Intake and Output Vital Signs (last 24 hours): Temp Pulse Resp BP Pulse Ox 97.5 F L 82 20 145/64 95 10/06/17 15:40 10/06/17 16:00 10/06/17 15:40 10/06/17 15:40 10/06/17 15:40 Intake and Output: 10/06/17 10/07/17 18:59 06:59 Intake Total 140 450 Balance 140 450 - Medications Medications: Current Medications Albuterol/Ipratropium (Duoneb 3 Mg/0.5 Mg (3 Ml) Ud) 3 ml INH RQ6 [facility] Last Admin: 10/06/17 20:23 Dose: 3 ml Apixaban (Eliquis) 2.5 mg PO BID [facility] Last Admin: 10/06/17 17:03 Dose: 2.5 mg Aspirin (Aspirin Chewable) 81 mg PO DAILY [facility] Last Admin: 10/06/17 09:58 Dose: 81 mg Epoetin Chencho (Procrit) 10,000 unit IV [facility] Famotidine (Pepcid) 20 mg PO DAILY [facility] Last Admin: 10/06/17 09:58 Dose: 20 mg Ferric Sodium Gluconate Complex (Ferrlecit) 125 mg IVPB DAILY@1600 [facility] Stop: 10/12/17 16:01 Last Admin: 10/06/17 16:56 Dose: 125 mg Insulin Aspart (Novolog) 0 unit SC Q6 [facility] PRN Reason: Protocol Last Admin: 10/06/17 18:59 Dose: 2 unit Insulin Detemir (Levemir) 30 unit SC Q12 [facility] Last Admin: 10/06/17 22:40 Dose: 30 unit Metoprolol Tartrate (Lopressor) 50 mg PO BID [facility] Last Admin: 10/06/17 17:02 Dose: 50 mg Rosuvastatin Calcium (Crestor) 10 mg PO HS [facility] Last Admin: 10/06/17 22:40 Dose: 10 mg Saccharomyces Boulardii (Florastor) 250 mg PO BID [facility] Last Admin: 10/06/17 17:02 Dose: 250 mg - Labs Labs: 10/06/17 08:20 10/06/17 08:20 PT 13.9 SECONDS (9.7-12.2) H 08/24/17 06:08 INR 1.2 08/24/17 06:08 APTT 55 SECONDS (21-34) H D 08/17/17 06:12 Assessment and Plan - Assessment and Plan (Free Text) Assessment: Assessment and Plan - Assessment and Plan (Free Text) Assessment: Atrial Fibrillation Intermittent Rate controlled. On Metoprolol 50 mg PO BID, Eliquis 2.5 mg PO BID CAD, chest pain -No current plans for cardiac cath (acute respiratory failure and elevated Cr) , history of abnormal stress test -Elevated Troponin likely due to chest compressions during cardiac arrest 08/10 -No acute ST changes on EKG -Continue ASA, Crestor, Metoprolol. -Echocardiogram from 08/08/17 showed left ventricle systolic function is severely impaired. EF: 25-30%; global hypokinesis of LV mild AR. MR is moderate. Moderate-severe pulmonary hypertension Systolic CHF exacerbation -CXR 09/09: Diminished bilateral basilar airspace disease; stable cardiomegaly -BNP 61529 on 08/06/17 -Continue ASA, Crestor, Metoprolol -Echocardiogram from 08/08/17 showed left ventricle systolic function is severely impaired. EF: 25-30%; global hypokinesis of LV mild AR. MR is moderate. Moderate-severe pulmonary hypertesnion Dobutamine discontinued in light of atrial flutter-type episodes Diabetes Mellitus ISS Continue to monitor ESRD on HD Currently on HD On Procrit and Phoslo Nephro on the case Prophylaxis Pepcid 20 mg PO daily Eliquis 2.5 mg PO BID (Renal precautions) Disposition Awaiting Transfer to LTAC
[2017-10-07] MEDS: (Novolog) Insulin Aspart, Recombinant 100 u/ml 10 ml vial SC SCH ×4 (00:30→20:02)
[2017-10-07] MEDS: Albuterol-Ipratrop 3 mg / 0.5 (3 ml) UD INH SCH ×4 (01:30→20:36)
[2017-10-07 07:30] LABS: POTASSIUM 3.6 mmol/L (3.6-5.2)
[2017-10-07 07:32] LABS: ALB/GLOB RATIO 0.7 (1.0-2.1); BILIRUBIN,TOTAL 0.6 mg/dL (0.2-1.3); CALCIUM 9.2 mg/dl (8.6-10.4); PHOSPHOROUS 3.4 mg/dL (2.5-4.5)
[2017-10-07 07:33] LABS: MAGNESIUM 2.5 mg/dL (1.6-2.3)
[2017-10-07 07:40] LABS: BASO # 0.1 K/uL (0.0-0.2); BASO % 0.4 % (0.0-2.0); EOS # 0.3 K/uL (0.0-0.7); EOS % 1.7 % (0.0-4.0); HEMATOCRIT 29.9 % (35.0-51.0); LYMPH % 18.1 % (20.0-40.0); MEAN CELL VOLUME 81.6 fL (80.0-94.0); MEAN CORPUSCULAR HEMOGLOBIN 25.6 pg (27.0-31.0); MEAN CORPUSCULAR HGB CONC 31.3 g/dL (33.0-37.0); MEAN PLATELET VOLUME 9.1 fL (7.2-11.7); MONO # 1.1 K/uL (0.0-0.8); MONO % 6.3 % (0.0-10.0); RED CELL DISTRIBUTION WIDTH 24.6 % (11.5-14.5); WHITE BLOOD COUNT 16.7 K/uL (4.8-10.8)
[2017-10-07] MEDS: Acetylcysteine 20% Inhal Soln (4ml) INH SCH ×3 (11:07→20:36)
[2017-10-07] MEDS: Saccharomyces Boulardi 250 mg Cap PO SCH ×2 (11:10→19:53)
[2017-10-07] MEDS: Insulin Detemir 100 units/ml Vial (Levemir) SC SCH ×2 (11:11→22:01)
--- NOTE | 2017-10-07 14:25 | CP.PCM.PN ---
Subjective - Date & Time of Evaluation Date of Evaluation: 10/07/17 Time of Evaluation: 09:40 - Subjective Subjective: patient seen and examined Lying comfortably in no acute distress Status post tracheostomy on trach collar Objective - Vital Signs/Intake and Output Vital Signs (last 24 hours): Temp Pulse Resp BP Pulse Ox 98 F 101 H 18 101/58 L 100 10/07/17 08:20 10/07/17 08:20 10/07/17 08:20 10/07/17 08:20 10/07/17 08:20 Intake and Output: 10/07/17 10/07/17 06:59 18:59 Intake Total 450 400 Balance 450 400 - Medications Medications: Current Medications Acetylcysteine (Acetylcysteine 20%) 4 ml INH RQ6 [facility] Last Admin: 10/07/17 13:08 Dose: 4 ml Albuterol/Ipratropium (Duoneb 3 Mg/0.5 Mg (3 Ml) Ud) 3 ml INH RQ6 [facility] Last Admin: 10/07/17 13:08 Dose: 3 ml Apixaban (Eliquis) 2.5 mg PO BID [facility] Last Admin: 10/07/17 11:11 Dose: 2.5 mg Aspirin (Aspirin Chewable) 81 mg PO DAILY [facility] Last Admin: 10/07/17 11:11 Dose: 81 mg Epoetin Chencho (Procrit) 10,000 unit IV MWF [facility] Famotidine (Pepcid) 20 mg PO DAILY [facility] Last Admin: 10/07/17 11:11 Dose: 20 mg Ferric Sodium Gluconate Complex (Ferrlecit) 125 mg IVPB DAILY@1600 [facility] Stop: 10/12/17 16:01 Last Admin: 10/06/17 16:56 Dose: 125 mg Insulin Aspart (Novolog) 0 unit SC Q6 [facility] PRN Reason: Protocol Last Admin: 10/07/17 13:21 Dose: 2 unit Insulin Detemir (Levemir) 30 unit SC Q12 [facility] Last Admin: 10/07/17 11:11 Dose: 30 unit Metoprolol Tartrate (Lopressor) 50 mg PO BID [facility] Last Admin: 10/07/17 11:12 Dose: Not Given Rosuvastatin Calcium (Crestor) 10 mg PO HS [facility] Last Admin: 10/06/17 22:40 Dose: 10 mg Saccharomyces Boulardii (Florastor) 250 mg PO BID [facility] Last Admin: 10/07/17 11:10 Dose: 250 mg - Labs Labs: 10/07/17 07:05 10/07/17 07:05 PT 13.9 SECONDS (9.7-12.2) H 08/24/17 06:08 INR 1.2 08/24/17 06:08 APTT 55 SECONDS (21-34) H D 08/17/17 06:12 - Head Exam Head Exam: ATRAUMATIC, NORMOCEPHALIC - Eye Exam Eye Exam: Normal appearance - ENT Exam ENT Exam: Mucous Membranes Moist - Neck Exam Neck Exam: Normal Inspection - Respiratory Exam Respiratory Exam: Decreased Breath Sounds - Cardiovascular Exam Cardiovascular Exam: REGULAR RHYTHM - GI/Abdominal Exam GI & Abdominal Exam: Soft, Normal Bowel Sounds Assessment and Plan (1) Cardiac arrest Assessment & Plan: status post tracheostomy Continue hemodialysis Awaiting ltach Status: Acute (2) Pneumonia Status: Acute (3) History of DVT (deep vein thrombosis) Status: Acute (4) CKD (chronic kidney disease) Status: Chronic (5) Acute on chronic renal failure Status: Resolved (6) CHF (congestive heart failure) Status: Acute
--- NOTE | 2017-10-07 15:11 | CP.PCM.PN ---
Subjective - Date & Time of Evaluation Date of Evaluation: 10/07/17 Time of Evaluation: 15:01 - Subjective Subjective: Appears stable on trach collar; not dyspneic no new complaints noted Objective - Vital Signs/Intake and Output Vital Signs (last 24 hours): Temp Pulse Resp BP Pulse Ox 98 F 101 H 18 101/58 L 100 10/07/17 08:20 10/07/17 08:20 10/07/17 08:20 10/07/17 08:20 10/07/17 08:20 Intake and Output: 10/07/17 10/07/17 06:59 18:59 Intake Total 450 400 Balance 450 400 - Medications Medications: Current Medications Acetylcysteine (Acetylcysteine 20%) 4 ml INH RQ6 [facility] Last Admin: 10/07/17 13:08 Dose: 4 ml Albuterol/Ipratropium (Duoneb 3 Mg/0.5 Mg (3 Ml) Ud) 3 ml INH RQ6 [facility] Last Admin: 10/07/17 13:08 Dose: 3 ml Apixaban (Eliquis) 2.5 mg PO BID [facility] Last Admin: 10/07/17 11:11 Dose: 2.5 mg Aspirin (Aspirin Chewable) 81 mg PO DAILY [facility] Last Admin: 10/07/17 11:11 Dose: 81 mg Epoetin Chencho (Procrit) 10,000 unit IV MWF [facility] Famotidine (Pepcid) 20 mg PO DAILY [facility] Last Admin: 10/07/17 11:11 Dose: 20 mg Ferric Sodium Gluconate Complex (Ferrlecit) 125 mg IVPB DAILY@1600 [facility] Stop: 10/12/17 16:01 Last Admin: 10/06/17 16:56 Dose: 125 mg Insulin Aspart (Novolog) 0 unit SC Q6 [facility] PRN Reason: Protocol Last Admin: 10/07/17 13:21 Dose: 2 unit Insulin Detemir (Levemir) 30 unit SC Q12 [facility] Last Admin: 10/07/17 11:11 Dose: 30 unit Metoprolol Tartrate (Lopressor) 50 mg PO BID [facility] Last Admin: 10/07/17 11:12 Dose: Not Given Rosuvastatin Calcium (Crestor) 10 mg PO HS [facility] Last Admin: 10/06/17 22:40 Dose: 10 mg Saccharomyces Boulardii (Florastor) 250 mg PO BID [facility] Last Admin: 10/07/17 11:10 Dose: 250 mg - Labs Labs: 10/07/17 07:05 10/07/17 07:05 PT 13.9 SECONDS (9.7-12.2) H 08/24/17 06:08 INR 1.2 08/24/17 06:08 APTT 55 SECONDS (21-34) H D 08/17/17 06:12 - Constitutional Appears: No Acute Distress, Chronically Ill - Head Exam Head Exam: ATRAUMATIC, NORMAL INSPECTION - Eye Exam Eye Exam: EOMI, Normal appearance - Neck Exam Neck Exam: Normal Inspection. absent: Tenderness - Respiratory Exam Respiratory Exam: Clear to Ausculation Bilateral, NORMAL BREATHING PATTERN - Cardiovascular Exam Cardiovascular Exam: REGULAR RHYTHM, +S1 - GI/Abdominal Exam GI & Abdominal Exam: Soft. absent: Tenderness - Extremities Exam Extremities Exam: Normal Inspection. absent: Tenderness - Neurological Exam Neurological Exam: Alert, Motor Sensory Deficit - Skin Skin Exam: Dry, Warm Assessment and Plan (1) Acute on chronic renal failure Status: Resolved (2) CAD (coronary artery disease) Status: Chronic (3) CHF exacerbation Status: Chronic (4) Type 2 diabetes mellitus with diabetic nephropathy Status: Acute (5) Cardiorenal disease Status: Acute (6) ESRD (end stage renal disease) Status: Acute - Assessment and Plan (Free Text) Plan: For dialysis, then MWF Same meds
--- NOTE | 2017-10-07 16:24 | CP.PCM.PN ---
<Sina White - Last Filed: 10/07/17 16:20> Subjective - Date & Time of Evaluation Date of Evaluation: 10/07/17 Time of Evaluation: 16:20 - Subjective Subjective: PGY-[address] Stoll HPI: Patient was examined at bedside. More awake and alert. ROS unattainable. Objective - Vital Signs/Intake and Output Vital Signs (last 24 hours): Temp Pulse Resp BP Pulse Ox 98 F 101 H 18 101/58 L 100 10/07/17 08:20 10/07/17 08:20 10/07/17 08:20 10/07/17 08:20 10/07/17 08:20 Intake and Output: 10/07/17 10/07/17 06:59 18:59 Intake Total 450 900 Balance 450 900 - Medications Medications: Current Medications Acetylcysteine (Acetylcysteine 20%) 4 ml INH RQ6 [facility] Last Admin: 10/07/17 13:08 Dose: 4 ml Albuterol/Ipratropium (Duoneb 3 Mg/0.5 Mg (3 Ml) Ud) 3 ml INH RQ6 [facility] Last Admin: 10/07/17 13:08 Dose: 3 ml Apixaban (Eliquis) 2.5 mg PO BID [facility] Last Admin: 10/07/17 11:11 Dose: 2.5 mg Aspirin (Aspirin Chewable) 81 mg PO DAILY [facility] Last Admin: 10/07/17 11:11 Dose: 81 mg Epoetin Chencho (Procrit) 10,000 unit IV MWF [facility] Famotidine (Pepcid) 20 mg PO DAILY [facility] Last Admin: 10/07/17 11:11 Dose: 20 mg Ferric Sodium Gluconate Complex (Ferrlecit) 125 mg IVPB DAILY@1600 [facility] Stop: 10/12/17 16:01 Last Admin: 10/06/17 16:56 Dose: 125 mg Insulin Aspart (Novolog) 0 unit SC Q6 [facility] PRN Reason: Protocol Last Admin: 10/07/17 13:21 Dose: 2 unit Insulin Detemir (Levemir) 30 unit SC Q12 [facility] Last Admin: 10/07/17 11:11 Dose: 30 unit Metoprolol Tartrate (Lopressor) 50 mg PO BID [facility] Last Admin: 10/07/17 11:12 Dose: Not Given Rosuvastatin Calcium (Crestor) 10 mg PO [facility] Last Admin: 10/06/17 22:40 Dose: 10 mg Saccharomyces Boulardii (Florastor) 250 mg PO BID [facility] Last Admin: 10/07/17 11:10 Dose: 250 mg - Labs Labs: 10/07/17 07:05 10/07/17 07:05 PT 13.9 SECONDS (9.7-12.2) H 08/24/17 06:08 INR 1.2 08/24/17 06:08 APTT 55 SECONDS (21-34) H D 08/17/17 06:12 - Constitutional Appears: Well, No Acute Distress - Head Exam Head Exam: ATRAUMATIC, NORMOCEPHALIC - Eye Exam Eye Exam: EOMI - ENT Exam ENT Exam: Mucous Membranes Moist - Neck Exam Additional comments: Trach Collar - Respiratory Exam Respiratory Exam: Clear to Ausculation Bilateral - Cardiovascular Exam Cardiovascular Exam: REGULAR RHYTHM, +S1, +S2 - GI/Abdominal Exam GI & Abdominal Exam: Soft, Normal Bowel Sounds. absent: Distended, Tenderness - Back Exam Additional comments: 10cm x 10cm unstageable ulcer with healthy granulation tissue. No necrotic tissue. Optifoam dressing with medihoney. - Neurological Exam Neurological Exam: Alert, Awake - Psychiatric Exam Psychiatric exam: Normal Affect, Normal Mood Assessment and Plan - Assessment and Plan (Free Text) Assessment: (1) Acute Respiratory Failure ARDS Cardiac Arrest Pulmonary Edema Nonstemi Assessment and Plan: * Code Blue on 08/10: asystole, cardiopulmonary resuscitative measures initiated , requiring 3 epis, bicarbonate, ROSC achieved and intubated and brought to the ICU for further management; Patient in the ICU from 08/10 until present. * Pulmonary: Dr Mena (Dr. Jeffers covering until 09/04/17)-->help appreciated * Cardiology: Dr. Cortés on board-->help appreciated * GI (Dr. Wills) on board-->help appreciated * S/P Tracheostomy 08/22 * S/P Peg tube placement 08/25 * s/p insertion of right posterior chest tube 08/19-->removed 08/24/17 * There was consideration for possible thoracentesis of left side pleural effusion, evaluated by IR, there is no fluid to drain per Dr. Gross * Chest xray (08/26): right arm PICC is seen with the tip of distal subclavian vein. PICC may be used * Per cardiology, * Restart Aspirin 81mg PO daily * Patient does not need Plavix at this time * Recommend for Eliquis 2.5mg PO BID for atrial flutter * 08/27: patient is pending LTAC, he went eventually need cardiac catheterization when he has stabilized. Held statin secondary to elevated LFTs. Discussed with Dr. Cortés, lowered Amiodarone 200mg PO daily * 08/28: patient is pending LTAC, he went eventually need cardiac catheterization when he has stabilized. Liver function tests improving * 08/29: [employer] Project Planner Nehal has sent request to insurance for authorization for LTAC-->pending * 09/06: pending social work/case management approval for LTAC * 09/07: pending social work/case management approval for LTAC * 09/08: Unable to get approval for LTAC; pending other options * 09/09: Transferred from step-down ICU to the floors * 09/13: Trasnferred back to ICU S/P Rapid Response for low blood pressure * 09/14: Currently on Acetylcysteine 20 % Neb Q6H and Duoneb Q6H * 09/15: Passy Flex Trach placed by Chemical Compounder Helper (2) Abnormal Stress Test History of AICD History of Coronary Artery Disease Assessment and Plan: * Cardiology (Dr. Cortés) on board-->help appreciated * TSH: 1.16; T4: 1.53 * Echocardiogram (08/08/17): left ventricle systolic function is severely impaired. EF: 25-30%; global hypokinesis of left ventricle mild aortic regurgitation. Mitral regurgitation is moderate. Moderate-severe pulmonary hypertension * Plan was for cardiac catheterization; delayed due to acute renal failure; Attempted gentle hydration and mucomyst on 08/09 to optimize prior to cath * On 08/10, patient was in asystole, ACLS protocol, ROSC achieved, intubated and transfered to the ICU. Patient in acute pulmonary edema. * Patient hospitalized in the ICU since 08/10/17 to present. * Medications: * Aspirin 81mg PO daily * Plavix d/c by cardiology * Lopressor 50mg PO bid * d/c Crestor 10mg POqHS secondary to rise in LFTS 08/27--->monitor LFTs daily * ARB d/c secondary to acute renal failure * 08/27: patient is pending LTAC, he went eventually need cardiac catheterization when he has stabilized. Held statin secondary to elevated LFTs. Discussed with Dr. Cortés, lowered Amiodarone 200mg PO daily * 08/28: He will eventually need cardiac catheterization when he has stabilized. Liver function tests improving. Statin is on hold (3) Atrial flutter Assessment and Plan: * Cardiology (Dr. Cortés) on board-->help appreciated * Refractory to Lopressor/Cardizem IVP * Eliquis 2.5mg PO bid * Amiodarone bolus-->Amiodarine drip on 08/24-->converted to Amiodarone 200mg PO TID on 08/26 and this was decreased to 200 mg 1x/day due to increased LFTs * 08/27: Discussed with Dr. Cortés, will lower Amiodarone 200mg PO daily and monitor LFTs. Statin held and tylenol d/c * 08/29: patient is pending LTAC, he will eventually need cardiac catheterization when he has stabilized. Liver function tests improving. Statin is on hold due to the elevated LFTs * 08/30: Cardiology discontinued the Amiodarone * 09/07: Held eliquis; will need to resume * 09/09: Eliquis resumed, off Amiodarone Status: Acute (4) Acute on Chronic Systolic CHF exacerbation Assessment and Plan: * Cardiology (Dr. Cortés) on board-->help appreciated * Transferred to the ICU on 08/10 following cardiac arrest and intubation. * Echocardiogram (08/08/17): left ventricular systolic function is severely impaired. EF: 25-30%; global hypokinesis of left ventricle mild aortic regurgitation. Mitral regurgitation is moderate. Moderate-severe pulmonary hypertension * Medications: * Aspirin 81mg PO daily * Plavix d/c by cardiology * Lopressor 50mg PO bid * d/c Crestor 10mg POqHS on 08/27 secondary to rise in LFTs * ARB d/c secondary to acute renal failure Status: Acute (5) Leukocytosis Assessment and Plan: * Patient's white count downtrending * Pleural Fluid 08/19/17 did not show any growth * Blood cultures (08/26): no growth X5 days * UA and urine culture (08/27): Urine Culture showed Yeast Species. * Patient has elevated LFTs-->did not start anti-fungal in light of LFTs New: * 09/05/17 Blood: gram positive cocci-->pending speciation * 09/05/17 Blood: no growth after 4 days * 09/07/17 Legionella Culture: negative * 09/07/17 Mycobacteria: negative * 09/07/17 Sputum: Enterocloace Bacter; yeast * 09/07/17 Blood: negative X 48 hours * 09/07/17 Blood: negative X 48 hours * 09/06: stool culture pending; has not had diarrhea or bowel movement * 09/07: Dr. Zimmer (covering Dr. Lawrence) to see the patient given elevated procalcitonin * Blood Culture 09/13/17 is negative to date and Urine Culture 09/13/17 showed Yeast Species * 09/14: Could this be secondary to the Septic Shock? Secondary to Osteomyelitis of the Sacrum? 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) and Meropenem 500 mg IV Q8H (09/13/17 through 09/16/17), Diflucan 200 mg PO 1x/day (09/13/17), Bactrim 10 mL PO Q12H (09/12/17 through 09/16/17), Tigecycline 50 mg IV Q12H (09/16/17 started because of VRE on Sacrum Wound Culture 09/14/17) * ESR 09/14/17 elevated at 89 * Bone Scan performed 09/17/17 to check for Osteomyelitis at the Sacrum: results are pending * Meropenem 500 mg IV Q12H (09/13/17 through 09/16/17: which will cover the Enterbacter in the Sputum 09/07/17 and the possibility of Sacral Osteomyelitis) * Antibiotics as of 09/17/17:Tigecycline (09/16/17: which will cover the VRE in Sacral Wound Culture 09/14/17 and the possibility of Sacral Osteomyelitis) and Diflucan 200 mg PO 1x/day (09/13/17: which will cover with Yeast in the Sputum, Urine, and Sacral Wound Culture) Status: Acute (6) Pneumonia Assessment and Plan: * Pulmonary (Dr. Mena) on board-->help appreciated; Dr. Jeffers covering while Dr. Mena away * Infectious Disease (Dr. Lawrence)-->help appreciated * Chest xray (08/26): right arm PICC is seen with the tip of distal subclavian vein. PICC may be used * Rapid A strep, Influenza A and B studies, Urine Legionella, Mycoplasma studies = Negative * Florastor 250mg PO bid * 08/07/17: +Strep Pneumoniae in the urine * Meropenem 500mg IV Q 8 hours (08/14/17 through 08/18/17) and Zosyn 2.25 mg IV Q6H (08/13/17 through 08/18/17) * Cefepime 1 gm IV Q24H: started on 08/19/17 and was discontinued by ID Dr. Lawrence on 08/30/17: monitor vitals and labs * s/p right posterior chest tube 08/19-08/24 * Sputum Culture 08/19/17 shows No growth * Pleural fluid 08/19/17: No growth * 09/07/17 Sputum: Enterocloace Bacter and Yeast Species: See Antibiotic treatment in previous Assessment and Plan * Sputum 09/10/17 shows NO AFB Status: Acute (7) HTN (hypertension) Assessment and Plan: * Lopressor 50mg PO bid * Lisinopril 5mg PO daily Status: Chronic (8) CKD (chronic kidney disease) on Dialysis Assessment and Plan: * Dr. Miranda (nephrology) consulted on the case * Hx of CKD-->Started on dialysis 08/15/17 * Kurtis catheter placed and removed 08/22 * s/p Right Chest Permcath 08/22 * Patient is on dialysis M-W-F; oliguric * Phoslo 1334mg GT TID * Epoetin 10,000 unit IV MWF Status: Acute (9) Diabetes mellitus Assessment and Plan: * Accuchecks Q6H * HgbA1c 8.4 * Started peg feedings on 08/26/17 * Nepro-->50 ml/hour but this was held 09/13/17 due suspicion of Bowel Obstruction as NO bowel Movement since 09/07/17. This was restarted on after NO obstruction was observed on Obstruction Series 09/13/17 and after multiple bowel movement s/p Fleet Enema 09/13/17 (10) HLD (hyperlipidemia) Assessment and Plan: * 08/27: held Crestor 10 mg PO HS secondary to rise in LFTs * 08/29: Liver function tests improving; waiting to restart statin Status: Chronic (11) Anemia Assessment and Plan: * Heme-oncology (Dr. Giles bender) on board-->help appreciated * Likely iron deficiency anemia based on prior admissions * Ferritin 27.4, Iron 22, TIBC 322, % Saturation 7 * Ferric Sodium Gluconate 125mg IVPB daily (active 08/08-08/16) * Procrit 10,000 units -- * Monitor Hgb/Hct: stable Status: Chronic (12) History of DVT (deep vein thrombosis) Assessment and Plan: * Patient was previously on Eliquis for a prior history of DVT. * Repeat dopplers 08/09/17 are negative for DVT * Off Heparin Drip 08/17/17 * Started Eliquis 2.5mg PO BID for atrial flutter and history of DVT Status: Chronic (13) UTI Assessment and Plan: * Infectious disease (Dr. Lawrence) on board-->help appreciated * Exchange jaquez out and repeat urine cultures * Urine Culture 08/12/17 showed Gram Negative Rods: NO identification and NO sensitivities were performed * Meropenem 500mg IV Q 12hours (active since 08/14/17 through 08/18/17) to cover for UTI per ID * Repeat Urine Culture 08/18/17 shows NO growth * 08/25: reculture in light of leukocytosis * 08/27: pending urine studies * 08/30: Urine Culture 08/27/17 showed Yeast Species but no antifungal at that time secondary to recent history of Elevated LFTs * Urine Culture 09/13/17 showed Yeast Species: he is on Diflucan Status: Chronic (14) Confusion; Alzheimer's Dementia Assessment and Plan: * Per daughter, patient has been getting bouts of confusion over the past year but appears at baseline. Patient has not seen formal neurology as outpatient per daughter. Per , prior to event, noted Alzheimers' disease dx one year ago * CT head w/o contrast (08/10/17):acute os subacute lacune infarct is not excluded in the left basal ganglia inferiorly with definitive chronic lacune identified in the right basal ganglia superiorly. No acute or subacute lobar brain infarction is appreciable by standard CT criteria. Mild age-related neuro degenerative changes are identifed. No acute intracranial hemorrhage or mass is identified throughout * 08/26: Off Sedation-->patient moves all extremities randomly but does not follow directions * 08/27: off sedation-->patient is very calm, smiles at his * 08/28: off sedation-->patient is very calm Status: Chronic (15) Unstageable Sacral Ulcer, Left Ear Auricle Ulcer, Right Heal Ulcer Assessment and Plan: * Wound care on board * WOUND CARE NOTE (08/26)-->Pt with a sacral unstageable being treated with medihoney. No changes to dimensions at this time. Also, pt favoring Left side of head and has developed a 1x1 serous filled blister on his left ear. Primary nurse placed duoderm on the ear. Wound care nurse left duoderm in place , and recommends leaving it on until it falls off on its own. Pt has been NPO for several days, new peg inserted yesterday. Will be starting glucerna tube feedings later today. Albumin 3.3 * Turn q 2 hours * medihoney on unstageable ulcer * duoderm on left ear aurical ulcer: this is healed as of 09/15/17 * Prevalon Boots for Right Heal Blister 09/13/17 * 09/02/17: examined with Wound Care Nurse Emeka Samuel and periphery of the Sacral Wound is pink with some bleeding however center is still black and therefore still unstageable. Continue spray with Cavelon followed by thick coating with MediHoney followed by covering with OptiFoam once a day. * 09/03/17: Change of sacral ulcer dressing was performed by me with assitance from Nurse Lyman * 09/04/17: 09/03/17: Change of sacral ulcer dressing was performed by me with assistance from ALEXANDRA Unger * Per wound care note (09/07): sacral ulcer is stable per wound care nurse * 09/14/17: Sacral Ulcer is unstageable and area of blackness fills entire circumference. General Surgery consult placed to see if debridement is necessary. Continue Cavelon [place] followed by paulina thick coating of MediHoney followed by covering with OptiFoam. * 09/15/17: Surgery Team debrided Sacral Ulcer and Bone Scan will need to be followed up which was performed 09/17/17 * 09/18/17: With the help of Nurse Guzman, applied Cavelon [place] followed by thick coating of MediHoney followed by covering with OptiFoam * 09/19/17: Dressing for Sacral Ulcer already changed before my exam. Explained to Nurse Guzman that best application of MediHoney would be to cover the padding of the OptiFoam with it and then apply the OptiFoam to the ulcer. Status: Acute (16) Elevated LFTs Assessment and Plan: * 08/27: Yina * Discussed with cardiology-->changed amiodarone 200mg PO tid to amiodaron 200mg PO daily * D/C tylenol * Held Statin * patient is also on Rocephin to cover for pneumonia * Will not start antifungal * 08/29: starting to down trending since change in amiodarone dose; awaiting to restart statin * 08/30: continues to trend down. Amiodarone was discontinued * 09/01: AST, ALT, Alk Phos still elevated but stable * 09/02: AST, ALT, Alk Phos still elevated but stable * 09/03: LFTs stable * 09/04: LFTs stable Status: Acute (17). Hx Constipation * Monitor bowel movement * Multiple bowel movements on 09/13/17 and 09/14/17 that are well formed s/p Fleet Enema on 09/13/17 * 09/15/17: NO bowel movement * 09/16/17: Soft pasty bowel movement * 09/17/17: Soft pasty bowel movement * 09/18/17: NO bowel movement * 09/19/17: ordered one dose of Lactulose 20 gm via PEG as still no bowel movement (18). Hyponatremia * 09/19/17: at 127 monitor for now (19). Prophylactic measure Assessment and Plan: * Pepcid 20mg PO daily * Start Eliquis 2.5mg PO BID * s/p peg placement 08/25 * s/p trachesostomy 08/22 * s/p Permcath placement 08/22 removal Kurtis catheter * s/p right posterior chest tube 08/19-->removed 08/24 * s/p Right Arm PICC 08/26 * (Jovita Serrano): -->number provided to the nurse- ->consented for peg placement; discussed about LTAC 08/26 * Spoke with MARIAJOSE Figueroa regarding patient's hospitalization up until this point 08/2609/01/17: Dr. Cullen Barth spoke with the patient's [place] with the assistance of Nurse Campos on 3 tower (as multiple attempts of using [employer] indicated that all of the [place] translators were busy) and explained all of the patient's diagnosises. 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 Her ultimate wish is to take patient to [facility] where their children live. I explained to patient that I would not know how that would be coordinated but that the Social Workers/Care Connector at LTAC may be of assistance in this regard. I also informed her that I am not aware of any insurance company that would finance this request. She understands that the patient is awaiting insurance approval for LTAC. 09/01/17 and 09/02/17: Dr. Cullen Barth spoke with Granular Operator Demetria and we are still awaiting insurance authorization for LTAC placement. 09/05/17: Spoke with nehal geriatric social worker, wean trials sent to LTAC pending approval no word yet regarding approval. Ordered for repeat cultures given uptrend in white count. 09/06/17: pending repeat cultures in light of elevated procalcitonin; ID recommended to reculture. Note: patients PICC lined had clogged ports. Red port remains clogged in spite of cath rafaela. Blue port improved after cath rafaela. Possible may need to remove line to r/o infected line. Strong suspicion due to patient's pneumonia given he has thick secretions. 09/07/17: Infectious disease. pending repeat cultures in light of elevated procalcitonin; Note: patients PICC lined had clogged ports. Red port remains clogged in spite of cath rafaela. Blue port improved after cath rafaela. Hip xray negative for acute fracture. There are no noted falls. 09/08/17: Patient denied for LTAC; awaiting for other options from case management/social work. Resident Daniel spoke with Dr. Cortés, patient be transferred under regular bed, when bed is available. Infectious disease on board; Patient started on IV Vancomycin in light of + blood culture. Pending chest xray. 09/09/17: Patient denied for LTAC; awaiting for other options from case management/social work with kamlesh verdin support. Patient started on IV Vancomycin MWF in light of + blood culture. Pending chest xray. F/U sputum with ID. f/u latest blood cultures. 09/13/17: Rapid response for low blood pressure and elevated WBC likely Septic Shock. Started on Levophed, added Meropenem to Vancomycin and 1 dose of Gentamycin given after speaking with ID. Ordered Obstruction Series as no bowel movement since 09/07/17. F/U Shock Panel. Discussed with ICU Resident to arrange for Change of Right Arm Midline line and Trach Collar. 09/14/17: Will await results of Blood Culture 09/13/17 to determine if the Right Arm Midline, Right Chest Perm Cath, and Trach Collar needs to be changed. Spoke with Granular Operator Demetria in ICU and patient information has been sent to [facility] (they accept patients on Trach) and she is awaiting to hear back from them before submitting approval request to insurance company. 09/15/17: Passy [place] Trach placed by Chemical Compounder Helper. Surgical Team for debridement of Sacral Ulcer. Spoke with patient's ([place] Denisa [id number]) and explained/updated her on patient condition and obtained consent for sacral ulcer debridement. 09/16/17: Still awaiting performance of Sacral Bone Scan 09/17/17: Bone Scan performed and awaiting results 09/18/17: Awaiting Bone Scan Report 09/19/17: Still awaiting Bone Scan Report. Spoke again with Granular Operator Demetria and NO word yet from [facility] (they do treat patients with Trachs). 09/20/17: Repeat Wound culture and urine culture sent. Dressing changed with medihoney and optifoam. No other changes at this time. Still waiting for approval for [facility] 09/21/17: No changes at this time. Will continue to change wound dressing Q3D and follow up with case management for for senior care transfer. 09/22/17: Dressing changed today with medihoney. Healing appropriately. Talked to case management. Still no update from detention transfer. Bone scan negative for osteo. Repeat wound cultures continue to grow Enterococcus. Will follow up sensitivities 09/26/17: Dialysis today. Dressing changed with optifoam and medihoney (nickel thick). VRE/germania in wound. Talked to case management. No updates at this time 09/27/17: dressing changed today with optifoam and medihoney (Nickel thick). Case management says no new information from [facility]. Will update as new information becomes available. 09/28/17: dressing changed today with optifoam and medihoney (Nickel thick). Case management says no new information from [facility]. Will update as new information becomes available. 3x3cm unstageable ulcer on R. heel present. Will talk to surgery for possible bedside debridment. 09/29/17:Talked to case management again today. No new information. Patient is tachycardiac and having blood tinged sputum in his trach collar. Will order a chest xray. 09/30/17: Talked to case management again today. No new information. went for dialysis yesterday due to excess fluid. Changed dressing at bedside today. 10/03/17: Dressing changed daily. Talked to ID on duration of Tigecycline, will evaluate wound. Surgery will also evaluate wound. Accepted at [facility]. Needs 2 days for authorization. Plan discharge on Tuesday10/04/17: Surgery saw and evaluated the wound today. They said no surgical intervention is needed. Talked to case management and still planning for discharge on Tuesday. Will follow up with ID on Tigecyline duration. 10/05/17: Patient lost approval for [facility]. Social work and case management is looking for a new detention at the moment. Tigecycline has been discontinued per ID. No other updates at this time. 10/06/17: Patient had dressing changed today. Diflucan has been d/c today per ID. No other updates from has management 10/07/17: Patient had dressing change today. Will repeat wound cultures tomorrow. No other updates at this time. <Tadeo Stoll - Last Filed: 11/01/17 15:49> Objective - Vital Signs/Intake and Output Vital Signs (last 24 hours): Temp Pulse Resp BP Pulse Ox 98.6 F 122 H 34 H 117/38 L 98 11/01/17 12:00 11/01/17 12:00 11/01/17 12:00 11/01/17 11:00 11/01/17 12:00 Intake and Output: 11/01/17 11/01/17 06:59 18:59 Intake Total 1240 100 Output Total 180 Balance 1060 100 - Medications Medications: Current Medications Ascorbic Acid (Vitamin C 500 Mg Tab) 500 mg PEG DAILY [facility] Last Admin: 11/01/17 09:23 Dose: 500 mg Aspirin (Aspirin Chewable) 81 mg PO DAILY [facility] Last Admin: 11/01/17 09:23 Dose: 81 mg Calcitriol (Rocaltrol) 0.25 mcg PEG DAILY [facility] Last Admin: 11/01/17 09:45 Dose: 0.25 mcg Epoetin Chencho (Procrit) 10,000 unit IV MWF [facility] Last Admin: 10/31/17 11:58 Dose: 10,000 unit Micafungin Sodium 100 mg/ (Sodium Chloride) 100 mls @ 100 mls/hr IV Q24H [facility] Last Admin: 10/31/17 17:45 Dose: 100 mls/hr Meropenem 500 mg/ Sodium (Chloride) 100 mls @ 100 mls/hr IVPB Q8 [facility] Last Admin: 11/01/17 13:30 Dose: 100 mls/hr Insulin Aspart (Novolog) 0 unit SC Q6 [facility] PRN Reason: Protocol Last Admin: 11/01/17 12:31 Dose: 1 unit Insulin Detemir (Levemir) 35 unit SC Q12 [facility] Last Admin: 11/01/17 09:24 Dose: 35 unit Ipratropium [place] (Atrovent) 0.5 mg IH RQ6 [facility] Last Admin: 11/01/17 13:47 Dose: 0.5 mg Loperamide HCl (Imodium) 1 mg PO Q4H PRN PRN Reason: Diarrhea Last Admin: 10/30/17 09:54 Dose: 1 mg Metoprolol Tartrate (Lopressor) 25 mg PEG BIDBS [facility] Last Admin: 10/25/17 09:58 Dose: Not Given Metronidazole (Flagyl) 500 mg GT Q8 [facility] Last Admin: 11/01/17 13:29 Dose: 500 mg Midodrine (Proamatine) 10 mg PO TID [facility] Last Admin: 11/01/17 13:30 Dose: 10 mg Multivitamins (Hexavitamin) 1 tab PEG DAILY [facility] Ondansetron HCl (Zofran Inj) 4 mg IVP Q8H PRN PRN Reason: Nausea/Vomiting Pantoprazole Sodium (Protonix Inj) 40 mg IVP DAILY [facility] Last Admin: 11/01/17 09:22 Dose: 40 mg Rosuvastatin Calcium (Crestor) 10 mg PO HS [facility] Last Admin: 10/31/17 21:29 Dose: 10 mg Saccharomyces Boulardii (Florastor) 250 mg PO BID [facility] Last Admin: 11/01/17 09:23 Dose: 250 mg Vitamin A (Vitamin A & D Oint Ud Foilpak) 0.5 ea TOP Q1H PRN PRN Reason: Dry skin Last Admin: 11/01/17 09:23 Dose: 0.5 ea - Labs Labs: 11/01/17 06:37 11/01/17 06:37 PT 13.4 SECONDS (9.7-12.2) H 10/14/17 16:30 INR 1.2 10/14/17 16:30 APTT 28 SECONDS (21-34) 10/14/17 16:30 Attending/Attestation - Attestation I have personally seen and examined this patient.: Yes I have fully participated in the care of the patient.: Yes I have reviewed all pertinent clinical information, including history, physical exam and plan: Yes Notes (Text): complicated course after code now on HD decub wound hypotension poor prognosis
[2017-10-07] MEDS: Epoetin Alfa 10,000 unit/ml Dialysis IV SCH (18:51)
[2017-10-07] MEDS: Ferric Sodium Gluconat Complex 62.5 mg/5 ml Vial IVPB SCH (18:52)
--- NOTE | 2017-10-07 20:46 | CP.PCM.PN ---
Subjective - Date & Time of Evaluation Date of Evaluation: 10/07/17 Time of Evaluation: 17:15 - Subjective Subjective: patient seen and evaluated Not in distress Physical Examination - Constitutional Appears: Chronically Ill - Head Exam Head Exam: ATRAUMATIC, NORMAL INSPECTION, NORMOCEPHALIC - Eye Exam Eye Exam: EOMI Pupil Exam: NORMAL ACCOMODATION - ENT Exam ENT Exam: Mucous Membranes Moist - Neck Exam Additional comments: trach - Respiratory Exam Respiratory Exam: Clear to Ausculation Bilateral, NORMAL BREATHING PATTERN - Cardiovascular Exam Cardiovascular Exam: REGULAR RHYTHM - GI/Abdominal Exam GI & Abdominal Exam: Soft, Normal Bowel Sounds. absent: Distended, Tenderness - Extremities Exam Extremities Exam: absent: Joint Swelling, Tenderness - Back Exam Additional comments: 10x10 unstageable ulcer with healthy granulation tissue. No necrotic tissue. optifoam dressing with medihoney. Clear dry and intact - Neurological Exam Neurological Exam: Alert, Awake - Psychiatric Exam Psychiatric exam: Normal Affect, Normal Mood - Skin Skin Exam: Dry, Intact, Normal Color, Warm Objective - Vital Signs/Intake and Output Vital Signs (last 24 hours): Temp Pulse Resp BP Pulse Ox 97.9 F 106 H 16 104/57 L 99 10/07/17 15:10 10/07/17 18:40 10/07/17 18:40 10/07/17 18:40 10/07/17 18:40 Intake and Output: 10/07/17 10/08/17 18:59 06:59 Intake Total 900 Balance 900 - Medications Medications: Current Medications Acetylcysteine (Acetylcysteine 20%) 4 ml INH RQ6 [facility] Last Admin: 10/07/17 20:36 Dose: 4 ml Albuterol/Ipratropium (Duoneb 3 Mg/0.5 Mg (3 Ml) Ud) 3 ml INH RQ6 [facility] Last Admin: 10/07/17 20:36 Dose: 3 ml Apixaban (Eliquis) 2.5 mg PO BID [facility] Last Admin: 10/07/17 19:56 Dose: 2.5 mg Aspirin (Aspirin Chewable) 81 mg PO DAILY [facility] Last Admin: 10/07/17 11:11 Dose: 81 mg Epoetin Chencho (Procrit) 10,000 unit IV MWF [facility] Last Admin: 10/07/17 18:51 Dose: 10,000 unit Famotidine (Pepcid) 20 mg PO DAILY [facility] Last Admin: 10/07/17 11:11 Dose: 20 mg Ferric Sodium Gluconate Complex (Ferrlecit) 125 mg IVPB DAILY@1600 [facility] Stop: 10/12/17 16:01 Last Admin: 10/07/17 18:52 Dose: 125 mg Insulin Aspart (Novolog) 0 unit SC Q6 [facility] PRN Reason: Protocol Last Admin: 10/07/17 20:02 Dose: 1 unit Insulin Detemir (Levemir) 30 unit SC Q12 [facility] Last Admin: 10/07/17 11:11 Dose: 30 unit Metoprolol Tartrate (Lopressor) 50 mg PO BID [facility] Last Admin: 10/07/17 19:54 Dose: Not Given Rosuvastatin Calcium (Crestor) 10 mg PO HS [facility] Last Admin: 10/06/17 22:40 Dose: 10 mg Saccharomyces Boulardii (Florastor) 250 mg PO BID [facility] Last Admin: 10/07/17 19:53 Dose: 250 mg - Labs Labs: 10/07/17 07:05 10/07/17 07:05 PT 13.9 SECONDS (9.7-12.2) H 08/24/17 06:08 INR 1.2 08/24/17 06:08 APTT 55 SECONDS (21-34) H D 08/17/17 06:12 Assessment and Plan - Assessment and Plan (Free Text) Assessment: Assessment and Plan - Assessment and Plan (Free Text) Assessment: Atrial Fibrillation Intermittent Rate controlled. On Metoprolol 50 mg PO BID, Eliquis 2.5 mg PO BID CAD, chest pain -No current plans for cardiac cath (acute respiratory failure and elevated Cr) , history of abnormal stress test -Elevated Troponin likely due to chest compressions during cardiac arrest 08/10 -No acute ST changes on EKG -Continue ASA, Crestor, Metoprolol. -Echocardiogram from 08/08/17 showed left ventricle systolic function is severely impaired. EF: 25-30%; global hypokinesis of LV mild AR. MR is moderate. Moderate-severe pulmonary hypertension Systolic CHF exacerbation -CXR 09/09: Diminished bilateral basilar airspace disease; stable cardiomegaly -BNP [id number] on 08/06/17 -Continue ASA, Crestor, Metoprolol -Echocardiogram from 08/08/17 showed left ventricle systolic function is severely impaired. EF: 25-30%; global hypokinesis of LV mild AR. MR is moderate. Moderate-severe pulmonary hypertesnion Dobutamine discontinued in light of atrial flutter-type episodes Diabetes Mellitus ISS Continue to monitor ESRD on HD Currently on HD On Procrit and Phoslo Nephro on the case Prophylaxis Pepcid 20 mg PO daily Eliquis 2.5 mg PO BID (Renal precautions) Disposition Awaiting Transfer to LT[facility]
--- NOTE | 2017-10-08 00:19 | CP.PCM.PN ---
<Anton Moore - Last Filed: 10/08/17 00:17> Subjective - Date & Time of Evaluation Date of Evaluation: 10/08/17 Time of Evaluation: 00:17 - Subjective Subjective: PGY-1 medicine note. HPI: Patient was examined at bedside. More awake and alert. ROS unattainable. Objective - Vital Signs/Intake and Output Vital Signs (last 24 hours): Temp Pulse Resp BP Pulse Ox 98.5 F 104 H 20 116/51 L 100 10/07/17 23:40 10/07/17 23:40 10/07/17 23:40 10/07/17 23:40 10/07/17 23:40 Intake and Output: 10/07/17 10/08/17 18:59 06:59 Intake Total 900 Balance 900 - Medications Medications: Current Medications Acetylcysteine (Acetylcysteine 20%) 4 ml INH RQ6 [facility] Last Admin: 10/07/17 20:36 Dose: 4 ml Albuterol/Ipratropium (Duoneb 3 Mg/0.5 Mg (3 Ml) Ud) 3 ml INH RQ6 [facility] Last Admin: 10/07/17 20:36 Dose: 3 ml Apixaban (Eliquis) 2.5 mg PO BID [facility] Last Admin: 10/07/17 19:56 Dose: 2.5 mg Aspirin (Aspirin Chewable) 81 mg PO DAILY [facility] Last Admin: 10/07/17 11:11 Dose: 81 mg Epoetin Chencho (Procrit) 10,000 unit IV MWF [facility] Last Admin: 10/07/17 18:51 Dose: 10,000 unit Famotidine (Pepcid) 20 mg PO DAILY [facility] Last Admin: 10/07/17 11:11 Dose: 20 mg Ferric Sodium Gluconate Complex (Ferrlecit) 125 mg IVPB DAILY@1600 [facility] Stop: 10/12/17 16:01 Last Admin: 10/07/17 18:52 Dose: 125 mg Insulin Aspart (Novolog) 0 unit SC Q6 [facility] PRN Reason: Protocol Last Admin: 10/07/17 20:02 Dose: 1 unit Insulin Detemir (Levemir) 30 unit SC Q12 [facility] Last Admin: 10/07/17 22:01 Dose: 30 unit Metoprolol Tartrate (Lopressor) 50 mg PO BID [facility] Last Admin: 10/07/17 19:54 Dose: Not Given Rosuvastatin Calcium (Crestor) 10 mg PO HS [facility] Last Admin: 10/07/17 22:02 Dose: 10 mg Saccharomyces Boulardii (Florastor) 250 mg PO BID [facility] Last Admin: 10/07/17 19:53 Dose: 250 mg - Labs Labs: 10/07/17 07:05 10/07/17 07:05 PT 13.9 SECONDS (9.7-12.2) H 08/24/17 06:08 INR 1.2 08/24/17 06:08 APTT 55 SECONDS (21-34) H D 08/17/17 06:12 - Additional Findings Additional findings: - Constitutional Appears: Well, No Acute Distress - Head Exam Head Exam: ATRAUMATIC, NORMOCEPHALIC - Eye Exam Eye Exam: EOMI - ENT Exam ENT Exam: Mucous Membranes Moist - Neck Exam Additional comments: Trach Collar - Respiratory Exam Respiratory Exam: Clear to Ausculation Bilateral - Cardiovascular Exam Cardiovascular Exam: REGULAR RHYTHM, +S1, +S2 - GI/Abdominal Exam GI & Abdominal Exam: Soft, Normal Bowel Sounds. absent: Distended, Tenderness - Back Exam Additional comments: 10cm x 10cm unstageable ulcer with healthy granulation tissue. No necrotic tissue. Optifoam dressing with medihoney. - Neurological Exam Neurological Exam: Alert, Awake - Psychiatric Exam Psychiatric exam: Normal Affect, Normal Mood Assessment and Plan - Assessment and Plan (Free Text) Assessment: (1) Acute Respiratory Failure ARDS Cardiac Arrest Pulmonary Edema Nonstemi Assessment and Plan: * Code Blue on 08/10: asystole, cardiopulmonary resuscitative measures initiated , requiring 3 epis, bicarbonate, ROSC achieved and intubated and brought to the ICU for further management; Patient in the ICU from 08/10 until present. * Pulmonary: Dr Mena (Dr. Jeffers covering until 09/04/17)-->help appreciated * Cardiology: Dr. Cortés on board-->help appreciated * GI (Dr. Wills) on board-->help appreciated * S/P Tracheostomy 08/22 * S/P Peg tube placement 08/25 * s/p insertion of right posterior chest tube 08/19-->removed 08/24/17 * There was consideration for possible thoracentesis of left side pleural effusion, evaluated by IR, there is no fluid to drain per Dr. Gross * Chest xray (08/26): right arm PICC is seen with the tip of distal subclavian vein. PICC may be used * Per cardiology, * Restart Aspirin 81mg PO daily * Patient does not need Plavix at this time * Recommend for Eliquis 2.5mg PO BID for atrial flutter * 08/27: patient is pending LTAC, he went eventually need cardiac catheterization when he has stabilized. Held statin secondary to elevated LFTs. Discussed with Dr. Cortés, lowered Amiodarone 200mg PO daily * 08/28: patient is pending LTAC, he went eventually need cardiac catheterization when he has stabilized. Liver function tests improving * 08/29: X Ray Nurse Nehal has sent request to insurance for authorization for LTAC-->pending * 09/06: pending social work/case management approval for LTAC * 09/07: pending social work/case management approval for LTAC * 09/08: Unable to get approval for LTAC; pending other options * 09/09: Transferred from step-down ICU to the floors * 09/13: Trasnferred back to ICU S/P Rapid Response for low blood pressure * 09/14: Currently on Acetylcysteine 20 % Neb Q6H and Duoneb Q6H * 09/15: Passy Flex Trach placed by [employer] B[employer] Machine Operator (2) Abnormal Stress Test History of AICD History of Coronary Artery Disease Assessment and Plan: * Cardiology (Dr. Cortés) on board-->help appreciated * TSH: 1.16; T4: 1.53 * Echocardiogram (08/08/17): left ventricle systolic function is severely impaired. EF: 25-30%; global hypokinesis of left ventricle mild aortic regurgitation. Mitral regurgitation is moderate. Moderate-severe pulmonary hypertension * Plan was for cardiac catheterization; delayed due to acute renal failure; Attempted gentle hydration and mucomyst on 08/09 to optimize prior to cath * On 08/10, patient was in asystole, ACLS protocol, ROSC achieved, intubated and transfered to the ICU. Patient in acute pulmonary edema. * Patient hospitalized in the ICU since 08/10/17 to present. * Medications: * Aspirin 81mg PO daily * Plavix d/c by cardiology * Lopressor 50mg PO bid * d/c Crestor 10mg POqHS secondary to rise in LFTS 08/27--->monitor LFTs daily * ARB d/c secondary to acute renal failure * 08/27: patient is pending LTAC, he went eventually need cardiac catheterization when he has stabilized. Held statin secondary to elevated LFTs. Discussed with Dr. Cortés, lowered Amiodarone 200mg PO daily * 08/28: He will eventually need cardiac catheterization when he has stabilized. Liver function tests improving. Statin is on hold (3) Atrial flutter Assessment and Plan: * Cardiology (Dr. Cortés) on board-->help appreciated * Refractory to Lopressor/Cardizem IVP * Eliquis 2.5mg PO bid * Amiodarone bolus-->Amiodarine drip on 08/24-->converted to Amiodarone 200mg PO TID on 08/26 and this was decreased to 200 mg 1x/day due to increased LFTs * 08/27: Discussed with Dr. Cortés, will lower Amiodarone 200mg PO daily and monitor LFTs. Statin held and tylenol d/c * 08/29: patient is pending LTAC, he will eventually need cardiac catheterization when he has stabilized. Liver function tests improving. Statin is on hold due to the elevated LFTs * 08/30: Cardiology discontinued the Amiodarone * 09/07: Held eliquis; will need to resume * 09/09: Eliquis resumed, off Amiodarone Status: Acute (4) Acute on Chronic Systolic CHF exacerbation Assessment and Plan: * Cardiology (Dr. Cortés) on board-->help appreciated * Transferred to the ICU on 08/10 following cardiac arrest and intubation. * Echocardiogram (08/08/17): left ventricular systolic function is severely impaired. EF: 25-30%; global hypokinesis of left ventricle mild aortic regurgitation. Mitral regurgitation is moderate. Moderate-severe pulmonary hypertension * Medications: * Aspirin 81mg PO daily * Plavix d/c by cardiology * Lopressor 50mg PO bid * d/c Crestor 10mg POqHS on 08/27 secondary to rise in LFTs * ARB d/c secondary to acute renal failure Status: Acute (5) Leukocytosis Assessment and Plan: * Patient's white count downtrending * Pleural Fluid 08/19/17 did not show any growth * Blood cultures (08/26): no growth X5 days * UA and urine culture (08/27): Urine Culture showed Yeast Species. * Patient has elevated LFTs-->did not start anti-fungal in light of LFTs New: * 09/05/17 Blood: gram positive cocci-->pending speciation * 09/05/17 Blood: no growth after 4 days * 09/07/17 Legionella Culture: negative * 09/07/17 Mycobacteria: negative * 09/07/17 Sputum: Enterocloace Bacter; yeast * 09/07/17 Blood: negative X 48 hours * 09/07/17 Blood: negative X 48 hours * 09/06: stool culture pending; has not had diarrhea or bowel movement * 09/07: Dr. Zimmer (covering Dr. Lawrence) to see the patient given elevated procalcitonin * Blood Culture 09/13/17 is negative to date and Urine Culture 09/13/17 showed Yeast Species * 09/14: Could this be secondary to the Septic Shock? Secondary to Osteomyelitis of the Sacrum? 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) and Meropenem 500 mg IV Q8H (09/13/17 through 09/16/17), Diflucan 200 mg PO 1x/day (09/13/17), Bactrim 10 mL PO Q12H (09/12/17 through 09/16/17), Tigecycline 50 mg IV Q12H (09/16/17 started because of VRE on Sacrum Wound Culture 09/14/17) * ESR 09/14/17 elevated at 89 * Bone Scan performed 09/17/17 to check for Osteomyelitis at the Sacrum: results are pending * Meropenem 500 mg IV Q12H (09/13/17 through 09/16/17: which will cover the Enterbacter in the Sputum 09/07/17 and the possibility of Sacral Osteomyelitis) * Antibiotics as of 09/17/17:Tigecycline (09/16/17: which will cover the VRE in Sacral Wound Culture 09/14/17 and the possibility of Sacral Osteomyelitis) and Diflucan 200 mg PO 1x/day (09/13/17: which will cover with Yeast in the Sputum, Urine, and Sacral Wound Culture) Status: Acute (6) Pneumonia Assessment and Plan: * Pulmonary (Dr. Mena) on board-->help appreciated; Dr. Jeffers covering while Dr. Mena away * Infectious Disease (Dr. Lawrence)-->help appreciated * Chest xray (08/26): right arm PICC is seen with the tip of distal subclavian vein. PICC may be used * Rapid A strep, Influenza A and B studies, Urine Legionella, Mycoplasma studies = Negative * Florastor 250mg PO bid * 08/07/17: +Strep Pneumoniae in the urine * Meropenem 500mg IV Q 8 hours (08/14/17 through 08/18/17) and Zosyn 2.25 mg IV Q6H (08/13/17 through 08/18/17) * Cefepime 1 gm IV Q24H: started on 08/19/17 and was discontinued by ID Dr. Lawrence on 08/30/17: monitor vitals and labs * s/p right posterior chest tube 08/19-08/24 * Sputum Culture 08/19/17 shows No growth * Pleural fluid 08/19/17: No growth * 09/07/17 Sputum: Enterocloace Bacter and Yeast Species: See Antibiotic treatment in previous Assessment and Plan * Sputum 09/10/17 shows NO AFB Status: Acute (7) HTN (hypertension) Assessment and Plan: * Lopressor 50mg PO bid * Lisinopril 5mg PO daily Status: Chronic (8) CKD (chronic kidney disease) on Dialysis Assessment and Plan: * Dr. Miranda (nephrology) consulted on the case * Hx of CKD-->Started on dialysis 08/15/17 * Kurtis catheter placed and removed 08/22 * s/p Right Chest Permcath 08/22 * Patient is on dialysis M-W-F; oliguric * Phoslo 1334mg GT TID * Epoetin 10,000 unit IV MWF Status: Acute (9) Diabetes mellitus Assessment and Plan: * Accuchecks Q6H * HgbA1c 8.4 * Started peg feedings on 08/26/17 * Nepro-->50 ml/hour but this was held 09/13/17 due suspicion of Bowel Obstruction as NO bowel Movement since 09/07/17. This was restarted on after NO obstruction was observed on Obstruction Series 09/13/17 and after multiple bowel movement s/p Fleet Enema 09/13/17 (10) HLD (hyperlipidemia) Assessment and Plan: * 08/27: held Crestor 10 mg PO HS secondary to rise in LFTs * 08/29: Liver function tests improving; waiting to restart statin Status: Chronic (11) Anemia Assessment and Plan: * Heme-oncology (Dr. Giles bender) on board-->help appreciated * Likely iron deficiency anemia based on prior admissions * Ferritin 27.4, Iron 22, TIBC 322, % Saturation 7 * Ferric Sodium Gluconate 125mg IVPB daily (active 08/08-08/16) * Procrit 10,000 units M-W- * Monitor Hgb/Hct: stable Status: Chronic (12) History of DVT (deep vein thrombosis) Assessment and Plan: * Patient was previously on Eliquis for a prior history of DVT. * Repeat dopplers 08/09/17 are negative for DVT * Off Heparin Drip 08/17/17 * Started Eliquis 2.5mg PO BID for atrial flutter and history of DVT Status: Chronic (13) UTI Assessment and Plan: * Infectious disease (Dr. Lawrence) on board-->help appreciated * Exchange jaquez out and repeat urine cultures * Urine Culture 08/12/17 showed Gram Negative Rods: NO identification and NO sensitivities were performed * Meropenem 500mg IV Q 12hours (active since 08/14/17 through 08/18/17) to cover for UTI per ID * Repeat Urine Culture 08/18/17 shows NO growth * 08/25: reculture in light of leukocytosis * 08/27: pending urine studies * 08/30: Urine Culture 08/27/17 showed Yeast Species but no antifungal at that time secondary to recent history of Elevated LFTs * Urine Culture 09/13/17 showed Yeast Species: he is on Diflucan Status: Chronic (14) Confusion; Alzheimer's Dementia Assessment and Plan: * Per daughter, patient has been getting bouts of confusion over the past year but appears at baseline. Patient has not seen formal neurology as outpatient per daughter. Per , prior to event, noted Alzheimers' disease dx one year ago * CT head w/o contrast (08/10/17):acute os subacute lacune infarct is not excluded in the left basal ganglia inferiorly with definitive chronic lacune identified in the right basal ganglia superiorly. No acute or subacute lobar brain infarction is appreciable by standard CT criteria. Mild age-related neuro degenerative changes are identifed. No acute intracranial hemorrhage or mass is identified throughout * 08/26: Off Sedation-->patient moves all extremities randomly but does not follow directions * 08/27: off sedation-->patient is very calm, smiles at his * 08/28: off sedation-->patient is very calm Status: Chronic (15) Unstageable Sacral Ulcer, Left Ear Auricle Ulcer, Right Heal Ulcer Assessment and Plan: * Wound care on board * WOUND CARE NOTE (08/26)-->Pt with a sacral unstageable being treated with medihoney. No changes to dimensions at this time. Also, pt favoring Left side of head and has developed a 1x1 serous filled blister on his left ear. Primary nurse placed duoderm on the ear. Wound care nurse left duoderm in place , and recommends leaving it on until it falls off on its own. Pt has been NPO for several days, new peg inserted yesterday. Will be starting glucerna tube feedings later today. Albumin 3.3 * Turn q 2 hours * medihoney on unstageable ulcer * duoderm on left ear aurical ulcer: this is healed as of 09/15/17 * Prevalon Boots for Right Heal Blister 09/13/17 * 09/02/17: examined with Wound Care Nurse Emeka Samuel and periphery of the Sacral Wound is pink with some bleeding however center is still black and therefore still unstageable. Continue spray with Cavelon followed by thick coating with MediHoney followed by covering with OptiFoam once a day. * 09/03/17: Change of sacral ulcer dressing was performed by me with assitance from Nurse Lyman * 09/04/17: 09/03/17: Change of sacral ulcer dressing was performed by me with assistance from ALEXANDRA Unger * Per wound care note (09/07): sacral ulcer is stable per wound care nurse * 09/14/17: Sacral Ulcer is unstageable and area of blackness fills entire circumference. General Surgery consult placed to see if debridement is necessary. Continue Cavelon [place] followed by paulina thick coating of MediHoney followed by covering with OptiFoam. * 09/15/17: Surgery Team debrided Sacral Ulcer and Bone Scan will need to be followed up which was performed 09/17/17 * 09/18/17: With the help of Nurse Guzman, applied Cavelon [place] followed by thick coating of MediHoney followed by covering with OptiFoam * 09/19/17: Dressing for Sacral Ulcer already changed before my exam. Explained to Nurse Megan that best application of MediHoney would be to cover the padding of the OptiFoam with it and then apply the OptiFoam to the ulcer. Status: Acute (16) Elevated LFTs Assessment and Plan: * 08/27: Yina * Discussed with cardiology-->changed amiodarone 200mg PO tid to amiodaron 200mg PO daily * D/C tylenol * Held Statin * patient is also on Rocephin to cover for pneumonia * Will not start antifungal * 08/29: starting to down trending since change in amiodarone dose; awaiting to restart statin * 08/30: continues to trend down. Amiodarone was discontinued * 09/01: AST, ALT, Alk Phos still elevated but stable * 09/02: AST, ALT, Alk Phos still elevated but stable * 09/03: LFTs stable * 09/04: LFTs stable Status: Acute (17). Hx Constipation * Monitor bowel movement * Multiple bowel movements on 09/13/17 and 09/14/17 that are well formed s/p Fleet Enema on 09/13/17 * 09/15/17: NO bowel movement * 09/16/17: Soft pasty bowel movement * 09/17/17: Soft pasty bowel movement * 09/18/17: NO bowel movement * 09/19/17: ordered one dose of Lactulose 20 gm via PEG as still no bowel movement (18). Hyponatremia * 09/19/17: at 127 monitor for now (19). Prophylactic measure Assessment and Plan: * Pepcid 20mg PO daily * Start Eliquis 2.5mg PO BID * s/p peg placement 08/25 * s/p trachesostomy 08/22 * s/p Permcath placement 08/22 removal Kurtis catheter * s/p right posterior chest tube 08/19-->removed 08/24 * s/p Right Arm PICC 08/26 * (Jovita Serrano): -->number provided to the nurse- ->consented for peg placement; discussed about LTAC 08/26 * Spoke with MARIAJOSE Figueroa regarding patient's hospitalization up until this point 08/2609/01/17: Dr. Cullen Barth spoke with the patient's [place] with the assistance of Nurse Campos on 3 tower (as multiple attempts of using [employer] indicated that all of the Romanian translators were busy) and explained all of the patient's diagnosises. 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 Her ultimate wish is to take patient to [facility] where their children live. I explained to patient that I would not know how that would be coordinated but that the Social Workers/Parts Fabricator at LTAC may be of assistance in this regard. I also informed her that I am not aware of any insurance company that would finance this request. She understands that the patient is awaiting insurance approval for LTAC. 09/01/17 and 09/02/17: Dr. Cullen Barth spoke with Home Stager Demetria and we are still awaiting insurance authorization for LTAC placement. 09/05/17: Spoke with nehal, psychiatric social worker supervisor, wean trials sent to LTAC pending approval no word yet regarding approval. Ordered for repeat cultures given uptrend in white count. 09/06/17: pending repeat cultures in light of elevated procalcitonin; ID recommended to reculture. Note: patients PICC lined had clogged ports. Red port remains clogged in spite of cath rafaela. Blue port improved after cath rafaela. Possible may need to remove line to r/o infected line. Strong suspicion due to patient's pneumonia given he has thick secretions. 09/07/17: Infectious disease. pending repeat cultures in light of elevated procalcitonin; Note: patients PICC lined had clogged ports. Red port remains clogged in spite of cath rafaela. Blue port improved after cath rafaela. Hip xray negative for acute fracture. There are no noted falls. 09/08/17: Patient denied for LTAC; awaiting for other options from case management/social work. Resident Daniel spoke with Dr. Cortés, patient be transferred under regular bed, when bed is available. Infectious disease on board; Patient started on IV Vancomycin in light of + blood culture. Pending chest xray. 09/09/17: Patient denied for LTAC; awaiting for other options from case management/social work with kamlesh verdin support. Patient started on IV Vancomycin MWF in light of + blood culture. Pending chest xray. F/U sputum with ID. f/u latest blood cultures. 09/13/17: Rapid response for low blood pressure and elevated WBC likely Septic Shock. Started on Levophed, added Meropenem to Vancomycin and 1 dose of Gentamycin given after speaking with ID. Ordered Obstruction Series as no bowel movement since 09/07/17. F/U Shock Panel. Discussed with ICU Resident to arrange for Change of Right Arm Midline line and Trach Collar. 09/14/17: Will await results of Blood Culture 09/13/17 to determine if the Right Arm Midline, Right Chest Perm Cath, and Trach Collar needs to be changed. Spoke with Home Stager Demetria in ICU and patient information has been sent to [facility] and [facility] (they accept patients on Trach) and she is awaiting to hear back from them before submitting approval request to insurance company. 09/15/17: Passy [place] Trach placed by [employer] Operator. Surgical Team for debridement of Sacral Ulcer. Spoke with patient's ([place] [id number]) and explained/updated her on patient condition and obtained consent for sacral ulcer debridement. 09/16/17: Still awaiting performance of Sacral Bone Scan 09/17/17: Bone Scan performed and awaiting results 09/18/17: Awaiting Bone Scan Report 09/19/17: Still awaiting Bone Scan Report. Spoke again with Home Stager Demetria and NO word yet from [facility] or [facility] (they do treat patients with Trachs). 09/20/17: Repeat Wound culture and urine culture sent. Dressing changed with medihoney and optifoam. No other changes at this time. Still waiting for approval for [facility] 09/21/17: No changes at this time. Will continue to change wound dressing Q3D and follow up with case management for for [facility] transfer. 09/22/17: Dressing changed today with medihoney. Healing appropriately. Talked to case management. Still no update from [facility] transfer. Bone scan negative for osteo. Repeat wound cultures continue to grow Enterococcus. Will follow up sensitivities 09/26/17: Dialysis today. Dressing changed with optifoam and medihoney (nickel thick). VRE/germania in wound. Talked to case management. No updates at this time 09/27/17: dressing changed today with optifoam and medihoney (Nickel thick). Case management says no new information from [facility]. Will update as new information becomes available. 09/28/17: dressing changed today with optifoam and medihoney (Nickel thick). Case management says no new information from [facility]. Will update as new information becomes available. 3x3cm unstageable ulcer on R. heel present. Will talk to surgery for possible bedside debridment. 09/29/17:Talked to case management again today. No new information. Patient is tachycardiac and having blood tinged sputum in his trach collar. Will order a chest xray. 09/30/17: Talked to case management again today. No new information. went for dialysis yesterday due to excess fluid. Changed dressing at bedside today. 10/03/17: Dressing changed daily. Talked to ID on duration of Tigecycline, will evaluate wound. Surgery will also evaluate wound. Accepted at [facility]. Needs 2 days for authorization. Plan discharge on Tuesday10/04/17: Surgery saw and evaluated the wound today. They said no surgical intervention is needed. Talked to case management and still planning for discharge on Tuesday. Will follow up with ID on Tigecyline duration. 10/05/17: Patient lost approval for [facility]. Social work and case management is looking for a new [facility] at the moment. Tigecycline has been discontinued per ID. No other updates at this time. 10/06/17: Patient had dressing changed today. Diflucan has been d/c today per ID. No other updates from has management 10/07/17: Patient had dressing change today. Will repeat wound cultures tomorrow. No other updates at this time. <Sanjay Pérez - Last Filed: 10/17/17 19:31> Subjective - Date & Time of Evaluation Date of Evaluation: 10/17/17 (Progress note assigned to my name in error.) Time of Evaluation: 19:31 Objective - Vital Signs/Intake and Output Vital Signs (last 24 hours): Temp Pulse Resp BP Pulse Ox 98.7 F 111 H 27 H 91/31 L 100 10/17/17 16:00 10/17/17 18:38 10/17/17 18:38 10/17/17 18:38 10/17/17 18:38 Intake and Output: 10/17/17 10/18/17 18:59 06:59 Intake Total 920 Balance 920 - Medications Medications: Current Medications Apixaban (Eliquis) 2.5 mg PO BID [facility] Last Admin: 10/17/17 18:34 Dose: 2.5 mg Collagenase (Santyl) 0 gm TOP DAILY [facility] Last Admin: 10/17/17 13:34 Dose: 1 applic Epoetin Chencho (Procrit) 10,000 unit IV MWF [facility] Last Admin: 10/17/17 10:07 Dose: 10,000 unit Famotidine (Pepcid) 20 mg PO DAILY [facility] Last Admin: 10/17/17 10:15 Dose: 20 mg Heparin Sodium (Porcine) (Heparin) 3,700 units IVP MWF [facility] Last Admin: 10/17/17 12:07 Dose: 3,700 units Cefepime HCl 1 gm/ Dextrose 50 mls @ 100 mls/hr IVPB Q24H [facility] Last Admin: 10/17/17 12:48 Dose: 100 mls/hr Fluconazole (Diflucan Iv 100 Mg/50 Ml Ns) 50 mls @ 100 mls/hr IVPB Q24H [facility] Last Admin: 10/17/17 18:45 Dose: 100 mls/hr Linezolid (Zyvox 600mg/300ml D5w) 600 mg in 300 mls @ 200 mls/hr IVPB Q12 [facility] Last Admin: 10/17/17 13:33 Dose: 200 mls/hr Aztreonam 1 gm/ Sodium (Chloride) 50 mls @ 200 mls/hr IVPB Q24H [facility] Insulin Detemir (Levemir) 8 unit SC [facility] Last Admin: 10/17/17 10:16 Dose: Not Given Insulin Human Regular (Novolin R) 5 unit SC AC [facility] Last Admin: 10/17/17 16:30 Dose: Not Given Insulin Human Regular (Novolin R) 0 unit SC [facility] PRN Reason: Protocol Last Admin: 10/17/17 18:34 Dose: 2 unit Metronidazole (Flagyl) 500 mg GT Q8 [facility] Last Admin: 10/17/17 13:33 Dose: 500 mg Midodrine (Proamatine) 5 mg PO TID [facility] Last Admin: 10/17/17 18:34 Dose: 5 mg Rosuvastatin Calcium (Crestor) 10 mg PO HS [facility] Last Admin: 10/16/17 21:11 Dose: 10 mg Saccharomyces Boulardii (Florastor) 250 mg PO BID [facility] Last Admin: 10/17/17 18:34 Dose: 250 mg - Labs Labs: 10/17/17 06:23 10/17/17 06:24 PT 13.4 SECONDS (9.7-12.2) H 10/14/17 16:30 INR 1.2 10/14/17 16:30 APTT 28 SECONDS (21-34) 10/14/17 16:30
[2017-10-08] MEDS: (Novolog) Insulin Aspart, Recombinant 100 u/ml 10 ml vial SC SCH ×4 (00:37→17:46)
[2017-10-08] MEDS: Albuterol-Ipratrop 3 mg / 0.5 (3 ml) UD INH SCH ×4 (01:29→19:55)
[2017-10-08] MEDS: Acetylcysteine 20% Inhal Soln (4ml) INH SCH ×4 (01:29→19:55)
[2017-10-08] MEDS ORDERED: Labetalol 25mg/5ml Syringe IVP STA (02:41)
[2017-10-08 07:49] LABS: BASO # 0.1 K/uL (0.0-0.2); BASO % 0.6 % (0.0-2.0); EOS # 0.2 K/uL (0.0-0.7); HEMATOCRIT 28.1 % (35.0-51.0); LYMPH # 1.9 K/uL (1.0-4.3); LYMPH % 12.1 % (20.0-40.0); MEAN CELL VOLUME 81.1 fL (80.0-94.0); MEAN CORPUSCULAR HEMOGLOBIN 25.8 pg (27.0-31.0); MEAN CORPUSCULAR HGB CONC 31.8 g/dL (33.0-37.0); MEAN PLATELET VOLUME 8.9 fL (7.2-11.7); MONO # 0.9 K/uL (0.0-0.8); MONO % 5.7 % (0.0-10.0); NRBC % 0.3 % (0.0-2.0); RED CELL DISTRIBUTION WIDTH 24.5 % (11.5-14.5); WHITE BLOOD COUNT 15.4 K/uL (4.8-10.8)
[2017-10-08 08:33] LABS: POTASSIUM 3.4 mmol/L (3.6-5.2)
[2017-10-08 08:35] LABS: ALB/GLOB RATIO 0.7 (1.0-2.1); BILIRUBIN,TOTAL 0.6 mg/dL (0.2-1.3); TOTAL PROTEIN 6.3 g/dL (6.3-8.3)
[2017-10-08 08:36] LABS: CALCIUM 8.5 mg/dl (8.6-10.4)
[2017-10-08] MEDS: Insulin Detemir 100 units/ml Vial (Levemir) SC SCH ×2 (09:53→21:28)
[2017-10-08] MEDS: Saccharomyces Boulardi 250 mg Cap PO SCH ×2 (09:54→17:48)
--- NOTE | 2017-10-08 11:06 | CP.PCM.PN ---
Subjective - Date & Time of Evaluation Date of Evaluation: 10/08/17 Time of Evaluation: 09:45 - Subjective Subjective: no acute events tolerating HD on trach collar ROS cannot be obtained due to mental status Objective - Vital Signs/Intake and Output Vital Signs (last 24 hours): Temp Pulse Resp BP Pulse Ox 98.1 F 101 H 20 125/58 L 100 10/08/17 08:00 10/08/17 08:00 10/08/17 08:00 10/08/17 08:00 10/08/17 08:00 Intake and Output: 10/08/17 10/08/17 06:59 18:59 Intake Total 400 Balance 400 - Medications Medications: Current Medications Acetylcysteine (Acetylcysteine 20%) 4 ml INH RQ6 [facility] Last Admin: 10/08/17 07:13 Dose: 4 ml Albuterol/Ipratropium (Duoneb 3 Mg/0.5 Mg (3 Ml) Ud) 3 ml INH RQ6 [facility] Last Admin: 10/08/17 07:13 Dose: 3 ml Apixaban (Eliquis) 2.5 mg PO BID [facility] Last Admin: 10/08/17 09:53 Dose: 2.5 mg Aspirin (Aspirin Chewable) 81 mg PO DAILY [facility] Last Admin: 10/08/17 09:53 Dose: 81 mg Epoetin Chencho (Procrit) 10,000 unit IV MWF [facility] Last Admin: 10/07/17 18:51 Dose: 10,000 unit Famotidine (Pepcid) 20 mg PO DAILY [facility] Last Admin: 10/08/17 09:54 Dose: 20 mg Ferric Sodium Gluconate Complex (Ferrlecit) 125 mg IVPB DAILY@1600 [facility] Stop: 10/12/17 16:01 Last Admin: 10/07/17 18:52 Dose: 125 mg Insulin Aspart (Novolog) 0 unit SC Q6 [facility] PRN Reason: Protocol Last Admin: 10/08/17 06:20 Dose: 2 unit Insulin Detemir (Levemir) 30 unit SC Q12 [facility] Last Admin: 10/08/17 09:53 Dose: 30 unit Metoprolol Tartrate (Lopressor) 50 mg PO BID [facility] Last Admin: 10/08/17 09:54 Dose: 50 mg Metronidazole (Flagyl) 500 mg PO Q8 [facility] Rosuvastatin Calcium (Crestor) 10 mg PO HS [facility] Last Admin: 10/07/17 22:02 Dose: 10 mg Saccharomyces Boulardii (Florastor) 250 mg PO BID [facility] Last Admin: 10/08/17 09:54 Dose: 250 mg - Labs Labs: 10/08/17 07:15 10/08/17 07:15 PT 13.9 SECONDS (9.7-12.2) H 08/24/17 06:08 INR 1.2 08/24/17 06:08 APTT 55 SECONDS (21-34) H D 08/17/17 06:12 - Constitutional Appears: Confused, Chronically Ill - Head Exam Head Exam: ATRAUMATIC - ENT Exam ENT Exam: Mucous Membranes Moist - Respiratory Exam Respiratory Exam: Decreased Breath Sounds. absent: Accessory Muscle Use - Cardiovascular Exam Cardiovascular Exam: REGULAR RHYTHM. absent: Rubs - GI/Abdominal Exam GI & Abdominal Exam: Distended, Soft Additional comments: PEG - Neurological Exam Neurological Exam: Alert. absent: Oriented x3 Assessment and Plan - Assessment and Plan (Free Text) Assessment: cardiomyopathy, post arrest dialysis dependent cognitive impairment decub maint HD continue wound care
[2017-10-08] MEDS: Ferric Sodium Gluconat Complex 62.5 mg/5 ml Vial IVPB SCH (17:49)
--- NOTE | 2017-10-08 22:21 | CP.PCM.PN ---
Subjective - Date & Time of Evaluation Date of Evaluation: 10/08/17 Time of Evaluation: 09:05 - Subjective Subjective: Patient without cardiac events Physical Examination - Constitutional Appears: Chronically Ill - Head Exam Head Exam: ATRAUMATIC, NORMAL INSPECTION, NORMOCEPHALIC - Eye Exam Eye Exam: EOMI Pupil Exam: NORMAL ACCOMODATION - ENT Exam ENT Exam: Mucous Membranes Moist - Neck Exam Additional comments: trach - Respiratory Exam Respiratory Exam: Clear to Ausculation Bilateral, NORMAL BREATHING PATTERN - Cardiovascular Exam Cardiovascular Exam: REGULAR RHYTHM - GI/Abdominal Exam GI & Abdominal Exam: Soft, Normal Bowel Sounds. absent: Distended, Tenderness - Extremities Exam Extremities Exam: absent: Joint Swelling, Tenderness - Back Exam Additional comments: 10x10 unstageable ulcer with healthy granulation tissue. No necrotic tissue. optifoam dressing with medihoney. Clear dry and intact - Neurological Exam Neurological Exam: Alert, Awake - Psychiatric Exam Psychiatric exam: Normal Affect, Normal Mood - Skin Skin Exam: Dry, Intact, Normal Color, Warm Objective - Vital Signs/Intake and Output Vital Signs (last 24 hours): Temp Pulse Resp BP Pulse Ox 97.9 F 88 20 109/50 L 100 10/08/17 16:00 10/08/17 16:00 10/08/17 16:00 10/08/17 16:00 10/08/17 16:00 Intake and Output: 10/08/17 10/09/17 18:59 06:59 Intake Total 650 Balance 650 - Medications Medications: Current Medications Acetylcysteine (Acetylcysteine 20%) 4 ml INH RQ6 [facility] Last Admin: 10/08/17 19:55 Dose: 4 ml Albuterol/Ipratropium (Duoneb 3 Mg/0.5 Mg (3 Ml) Ud) 3 ml INH RQ6 [facility] Last Admin: 10/08/17 19:55 Dose: 3 ml Apixaban (Eliquis) 2.5 mg PO BID [facility] Last Admin: 10/08/17 17:51 Dose: 2.5 mg Aspirin (Aspirin Chewable) 81 mg PO DAILY [facility] Last Admin: 10/08/17 09:53 Dose: 81 mg Epoetin Chencho (Procrit) 10,000 unit IV MWF [facility] Last Admin: 10/07/17 18:51 Dose: 10,000 unit Famotidine (Pepcid) 20 mg PO DAILY [facility] Last Admin: 10/08/17 09:54 Dose: 20 mg Ferric Sodium Gluconate Complex (Ferrlecit) 125 mg IVPB DAILY@1600 [facility] Stop: 10/12/17 16:01 Last Admin: 10/08/17 17:49 Dose: 125 mg Insulin Aspart (Novolog) 0 unit SC Q6 [facility] PRN Reason: Protocol Last Admin: 10/08/17 17:46 Dose: Not Given Insulin Detemir (Levemir) 30 unit SC Q12 [facility] Last Admin: 10/08/17 21:28 Dose: 30 unit Metoprolol Tartrate (Lopressor) 50 mg PO BID [facility] Last Admin: 10/08/17 17:50 Dose: 50 mg Metronidazole (Flagyl) 500 mg PO Q8 [facility] Last Admin: 10/08/17 21:28 Dose: 500 mg Rosuvastatin Calcium (Crestor) 10 mg PO HS [facility] Last Admin: 10/08/17 21:28 Dose: 10 mg Saccharomyces Boulardii (Florastor) 250 mg PO BID [facility] Last Admin: 10/08/17 17:48 Dose: 250 mg - Labs Labs: 10/08/17 07:15 10/08/17 07:15 PT 13.9 SECONDS (9.7-12.2) H 08/24/17 06:08 INR 1.2 08/24/17 06:08 APTT 55 SECONDS (21-34) H D 08/17/17 06:12 Assessment and Plan - Assessment and Plan (Free Text) Assessment: Assessment and Plan - Assessment and Plan (Free Text) Assessment: Atrial Fibrillation Intermittent Rate controlled. On Metoprolol 50 mg PO BID, Eliquis 2.5 mg PO BID CAD, chest pain -No current plans for cardiac cath (acute respiratory failure and elevated Cr) , history of abnormal stress test -Elevated Troponin likely due to chest compressions during cardiac arrest 08/10 -No acute ST changes on EKG -Continue ASA, Crestor, Metoprolol. -Echocardiogram from 08/08/17 showed left ventricle systolic function is severely impaired. EF: 25-30%; global hypokinesis of LV mild AR. MR is moderate. Moderate-severe pulmonary hypertension Systolic CHF exacerbation -CXR 09/09: Diminished bilateral basilar airspace disease; stable cardiomegaly -BNP 19398 on 08/06/17 -Continue ASA, Crestor, Metoprolol -Echocardiogram from 08/08/17 showed left ventricle systolic function is severely impaired. EF: 25-30%; global hypokinesis of LV mild AR. MR is moderate. Moderate-severe pulmonary hypertesnion Dobutamine discontinued in light of atrial flutter-type episodes Diabetes Mellitus ISS Continue to monitor ESRD on HD Currently on HD On Procrit and Phoslo Nephro on the case Prophylaxis Pepcid 20 mg PO daily Eliquis 2.5 mg PO BID (Renal precautions) Disposition Awaiting Transfer to LT[facility]
[2017-10-09] MEDS: (Novolog) Insulin Aspart, Recombinant 100 u/ml 10 ml vial SC SCH ×4 (00:42→17:41)
--- NOTE | 2017-10-09 00:57 | CP.PCM.PN ---
<Anton Moore - Last Filed: 10/09/17 00:55> Subjective - Date & Time of Evaluation Date of Evaluation: 10/09/17 Time of Evaluation: 00:55 - Subjective Subjective: PGY-1 medicine note. HPI: Patient was examined at bedside. More awake and alert. ROS unattainable. Objective - Vital Signs/Intake and Output Vital Signs (last 24 hours): Temp Pulse Resp BP Pulse Ox 97.9 F 88 20 109/50 L 100 10/08/17 16:00 10/08/17 16:00 10/08/17 16:00 10/08/17 16:00 10/08/17 16:00 Intake and Output: 10/08/17 10/09/17 18:59 06:59 Intake Total 650 Balance 650 - Medications Medications: Current Medications Acetylcysteine (Acetylcysteine 20%) 4 ml INH RQ6 [facility] Last Admin: 10/08/17 19:55 Dose: 4 ml Albuterol/Ipratropium (Duoneb 3 Mg/0.5 Mg (3 Ml) Ud) 3 ml INH RQ6 [facility] Last Admin: 10/08/17 19:55 Dose: 3 ml Apixaban (Eliquis) 2.5 mg PO BID [facility] Last Admin: 10/08/17 17:51 Dose: 2.5 mg Aspirin (Aspirin Chewable) 81 mg PO DAILY [facility] Last Admin: 10/08/17 09:53 Dose: 81 mg Epoetin Chencho (Procrit) 10,000 unit IV MWF [facility] Last Admin: 10/07/17 18:51 Dose: 10,000 unit Famotidine (Pepcid) 20 mg PO DAILY [facility] Last Admin: 10/08/17 09:54 Dose: 20 mg Ferric Sodium Gluconate Complex (Ferrlecit) 125 mg IVPB DAILY@1600 [facility] Stop: 10/12/17 16:01 Last Admin: 10/08/17 17:49 Dose: 125 mg Insulin Aspart (Novolog) 0 unit SC Q6 [facility] PRN Reason: Protocol Last Admin: 10/09/17 00:42 Dose: Not Given Insulin Detemir (Levemir) 30 unit SC Q12 [facility] Last Admin: 10/08/17 21:28 Dose: 30 unit Metoprolol Tartrate (Lopressor) 50 mg PO BID [facility] Last Admin: 10/08/17 17:50 Dose: 50 mg Metronidazole (Flagyl) 500 mg PO Q8 [facility] Last Admin: 10/08/17 21:28 Dose: 500 mg Rosuvastatin Calcium (Crestor) 10 mg PO HS [facility] Last Admin: 10/08/17 21:28 Dose: 10 mg Saccharomyces Boulardii (Florastor) 250 mg PO BID [facility] Last Admin: 10/08/17 17:48 Dose: 250 mg - Labs Labs: 10/08/17 07:15 10/08/17 07:15 PT 13.9 SECONDS (9.7-12.2) H 08/24/17 06:08 INR 1.2 08/24/17 06:08 APTT 55 SECONDS (21-34) H D 08/17/17 06:12 - Additional Findings Additional findings: - Constitutional Appears: Well, No Acute Distress - Head Exam Head Exam: ATRAUMATIC, NORMOCEPHALIC - Eye Exam Eye Exam: EOMI - ENT Exam ENT Exam: Mucous Membranes Moist - Neck Exam Additional comments: Trach Collar - Respiratory Exam Respiratory Exam: Clear to Ausculation Bilateral - Cardiovascular Exam Cardiovascular Exam: REGULAR RHYTHM, +S1, +S2 - GI/Abdominal Exam GI & Abdominal Exam: Soft, Normal Bowel Sounds. absent: Distended, Tenderness - Back Exam Additional comments: 10cm x 10cm unstageable ulcer with healthy granulation tissue. No necrotic tissue. Optifoam dressing with medihoney. - Neurological Exam Neurological Exam: Alert, Awake - Psychiatric Exam Psychiatric exam: Normal Affect, Normal Mood Assessment and Plan - Assessment and Plan (Free Text) Assessment: (1) Acute Respiratory Failure ARDS Cardiac Arrest Pulmonary Edema Nonstemi Assessment and Plan: * Code Blue on 08/10: asystole, cardiopulmonary resuscitative measures initiated , requiring 3 epis, bicarbonate, ROSC achieved and intubated and brought to the ICU for further management; Patient in the ICU from 08/10 until present. * Pulmonary: Dr Mena (Dr. Jeffers covering until 09/04/17)-->help appreciated * Cardiology: Dr. Cortés on board-->help appreciated * GI (Dr. Wills) on board-->help appreciated * S/P Tracheostomy 08/22 * S/P Peg tube placement 08/25 * s/p insertion of right posterior chest tube 08/19-->removed 08/24/17 * There was consideration for possible thoracentesis of left side pleural effusion, evaluated by IR, there is no fluid to drain per Dr. Gross * Chest xray (08/26): right arm PICC is seen with the tip of distal subclavian vein. PICC may be used * Per cardiology, * Restart Aspirin 81mg PO daily * Patient does not need Plavix at this time * Recommend for Eliquis 2.5mg PO BID for atrial flutter * 08/27: patient is pending LTAC, he went eventually need cardiac catheterization when he has stabilized. Held statin secondary to elevated LFTs. Discussed with Dr. Cortés, lowered Amiodarone 200mg PO daily * 08/28: patient is pending LTAC, he went eventually need cardiac catheterization when he has stabilized. Liver function tests improving * 08/29: Community Education Coordinator Nehal has sent request to insurance for authorization for LTAC-->pending * 09/06: pending social work/case management approval for LTAC * 09/07: pending social work/case management approval for LTAC * 09/08: Unable to get approval for LTAC; pending other options * 09/09: Transferred from step-down ICU to the floors * 09/13: Trasnferred back to ICU S/P Rapid Response for low blood pressure * 09/14: Currently on Acetylcysteine 20 % Neb Q6H and Duoneb Q6H * 09/15: Passy Flex Trach placed by Housekeeper/Laundry Assistant (2) Abnormal Stress Test History of AICD History of Coronary Artery Disease Assessment and Plan: * Cardiology (Dr. Cortés) on board-->help appreciated * TSH: 1.16; T4: 1.53 * Echocardiogram (08/08/17): left ventricle systolic function is severely impaired. EF: 25-30%; global hypokinesis of left ventricle mild aortic regurgitation. Mitral regurgitation is moderate. Moderate-severe pulmonary hypertension * Plan was for cardiac catheterization; delayed due to acute renal failure; Attempted gentle hydration and mucomyst on 08/09 to optimize prior to cath * On 08/10, patient was in asystole, ACLS protocol, ROSC achieved, intubated and transfered to the ICU. Patient in acute pulmonary edema. * Patient hospitalized in the ICU since 08/10/17 to present. * Medications: * Aspirin 81mg PO daily * Plavix d/c by cardiology * Lopressor 50mg PO bid * d/c Crestor 10mg POqHS secondary to rise in LFTS 08/27--->monitor LFTs daily * ARB d/c secondary to acute renal failure * 08/27: patient is pending LTAC, he went eventually need cardiac catheterization when he has stabilized. Held statin secondary to elevated LFTs. Discussed with Dr. Cortés, lowered Amiodarone 200mg PO daily * 08/28: He will eventually need cardiac catheterization when he has stabilized. Liver function tests improving. Statin is on hold (3) Atrial flutter Assessment and Plan: * Cardiology (Dr. Cortés) on board-->help appreciated * Refractory to Lopressor/Cardizem IVP * Eliquis 2.5mg PO bid * Amiodarone bolus-->Amiodarine drip on 08/24-->converted to Amiodarone 200mg PO TID on 08/26 and this was decreased to 200 mg 1x/day due to increased LFTs * 08/27: Discussed with Dr. Cortés, will lower Amiodarone 200mg PO daily and monitor LFTs. Statin held and tylenol d/c * 08/29: patient is pending LTAC, he will eventually need cardiac catheterization when he has stabilized. Liver function tests improving. Statin is on hold due to the elevated LFTs * 08/30: Cardiology discontinued the Amiodarone * 09/07: Held eliquis; will need to resume * 09/09: Eliquis resumed, off Amiodarone Status: Acute (4) Acute on Chronic Systolic CHF exacerbation Assessment and Plan: * Cardiology (Dr. Cortés) on board-->help appreciated * Transferred to the ICU on 08/10 following cardiac arrest and intubation. * Echocardiogram (08/08/17): left ventricular systolic function is severely impaired. EF: 25-30%; global hypokinesis of left ventricle mild aortic regurgitation. Mitral regurgitation is moderate. Moderate-severe pulmonary hypertension * Medications: * Aspirin 81mg PO daily * Plavix d/c by cardiology * Lopressor 50mg PO bid * d/c Crestor 10mg POqHS on 08/27 secondary to rise in LFTs * ARB d/c secondary to acute renal failure Status: Acute (5) Leukocytosis Assessment and Plan: * Patient's white count downtrending * Pleural Fluid 08/19/17 did not show any growth * Blood cultures (08/26): no growth X5 days * UA and urine culture (08/27): Urine Culture showed Yeast Species. * Patient has elevated LFTs-->did not start anti-fungal in light of LFTs New: * 09/05/17 Blood: gram positive cocci-->pending speciation * 09/05/17 Blood: no growth after 4 days * 09/07/17 Legionella Culture: negative * 09/07/17 Mycobacteria: negative * 09/07/17 Sputum: Enterocloace Bacter; yeast * 09/07/17 Blood: negative X 48 hours * 09/07/17 Blood: negative X 48 hours * 09/06: stool culture pending; has not had diarrhea or bowel movement * 09/07: Dr. Zimmer (covering Dr. Lawrence) to see the patient given elevated procalcitonin * Blood Culture 09/13/17 is negative to date and Urine Culture 09/13/17 showed Yeast Species * 09/14: Could this be secondary to the Septic Shock? Secondary to Osteomyelitis of the Sacrum? 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) and Meropenem 500 mg IV Q8H (09/13/17 through 09/16/17), Diflucan 200 mg PO 1x/day (09/13/17), Bactrim 10 mL PO Q12H (09/12/17 through 09/16/17), Tigecycline 50 mg IV Q12H (09/16/17 started because of VRE on Sacrum Wound Culture 09/14/17) * ESR 09/14/17 elevated at 89 * Bone Scan performed 09/17/17 to check for Osteomyelitis at the Sacrum: results are pending * Meropenem 500 mg IV Q12H (09/13/17 through 09/16/17: which will cover the Enterbacter in the Sputum 09/07/17 and the possibility of Sacral Osteomyelitis) * Antibiotics as of 09/17/17:Tigecycline (09/16/17: which will cover the VRE in Sacral Wound Culture 09/14/17 and the possibility of Sacral Osteomyelitis) and Diflucan 200 mg PO 1x/day (09/13/17: which will cover with Yeast in the Sputum, Urine, and Sacral Wound Culture) Status: Acute (6) Pneumonia Assessment and Plan: * Pulmonary (Dr. Mena) on board-->help appreciated; Dr. Jeffers covering while Dr. Mena away * Infectious Disease (Dr. Lawrence)-->help appreciated * Chest xray (08/26): right arm PICC is seen with the tip of distal subclavian vein. PICC may be used * Rapid A strep, Influenza A and B studies, Urine Legionella, Mycoplasma studies = Negative * Florastor 250mg PO bid * 08/07/17: +Strep Pneumoniae in the urine * Meropenem 500mg IV Q 8 hours (08/14/17 through 08/18/17) and Zosyn 2.25 mg IV Q6H (08/13/17 through 08/18/17) * Cefepime 1 gm IV Q24H: started on 08/19/17 and was discontinued by ID Dr. Lawrence on 08/30/17: monitor vitals and labs * s/p right posterior chest tube 08/19-08/24 * Sputum Culture 08/19/17 shows No growth * Pleural fluid 08/19/17: No growth * 09/07/17 Sputum: Enterocloace Bacter and Yeast Species: See Antibiotic treatment in previous Assessment and Plan * Sputum 09/10/17 shows NO AFB Status: Acute (7) HTN (hypertension) Assessment and Plan: * Lopressor 50mg PO bid * Lisinopril 5mg PO daily Status: Chronic (8) CKD (chronic kidney disease) on Dialysis Assessment and Plan: * Dr. Miranda (nephrology) consulted on the case * Hx of CKD-->Started on dialysis 08/15/17 * Kurtis catheter placed and removed 08/22 * s/p Right Chest Permcath 08/22 * Patient is on dialysis M-W-F; oliguric * Phoslo 1334mg GT TID * Epoetin 10,000 unit IV MWF Status: Acute (9) Diabetes mellitus Assessment and Plan: * Accuchecks Q6H * HgbA1c 8.4 * Started peg feedings on 08/26/17 * Nepro-->50 ml/hour but this was held 09/13/17 due suspicion of Bowel Obstruction as NO bowel Movement since 09/07/17. This was restarted on after NO obstruction was observed on Obstruction Series 09/13/17 and after multiple bowel movement s/p Fleet Enema 09/13/17 (10) HLD (hyperlipidemia) Assessment and Plan: * 08/27: held Crestor 10 mg PO HS secondary to rise in LFTs * 08/29: Liver function tests improving; waiting to restart statin Status: Chronic (11) Anemia Assessment and Plan: * Heme-oncology (Dr. Giles bender) on board-->help appreciated * Likely iron deficiency anemia based on prior admissions * Ferritin 27.4, Iron 22, TIBC 322, % Saturation 7 * Ferric Sodium Gluconate 125mg IVPB daily (active 08/08-08/16) * Procrit 10,000 units M-- * Monitor Hgb/Hct: stable Status: Chronic (12) History of DVT (deep vein thrombosis) Assessment and Plan: * Patient was previously on Eliquis for a prior history of DVT. * Repeat dopplers 08/09/17 are negative for DVT * Off Heparin Drip 08/17/17 * Started Eliquis 2.5mg PO BID for atrial flutter and history of DVT Status: Chronic (13) UTI Assessment and Plan: * Infectious disease (Dr. Lawrence) on board-->help appreciated * Exchange jaquez out and repeat urine cultures * Urine Culture 08/12/17 showed Gram Negative Rods: NO identification and NO sensitivities were performed * Meropenem 500mg IV Q 12hours (active since 08/14/17 through 08/18/17) to cover for UTI per ID * Repeat Urine Culture 08/18/17 shows NO growth * 08/25: reculture in light of leukocytosis * 08/27: pending urine studies * 08/30: Urine Culture 08/27/17 showed Yeast Species but no antifungal at that time secondary to recent history of Elevated LFTs * Urine Culture 09/13/17 showed Yeast Species: he is on Diflucan Status: Chronic (14) Confusion; Alzheimer's Dementia Assessment and Plan: * Per daughter, patient has been getting bouts of confusion over the past year but appears at baseline. Patient has not seen formal neurology as outpatient per daughter. Per , prior to event, noted Alzheimers' disease dx one year ago * CT head w/o contrast (08/10/17):acute os subacute lacune infarct is not excluded in the left basal ganglia inferiorly with definitive chronic lacune identified in the right basal ganglia superiorly. No acute or subacute lobar brain infarction is appreciable by standard CT criteria. Mild age-related neuro degenerative changes are identifed. No acute intracranial hemorrhage or mass is identified throughout * 08/26: Off Sedation-->patient moves all extremities randomly but does not follow directions * 08/27: off sedation-->patient is very calm, smiles at his * 08/28: off sedation-->patient is very calm Status: Chronic (15) Unstageable Sacral Ulcer, Left Ear Auricle Ulcer, Right Heal Ulcer Assessment and Plan: * Wound care on board * WOUND CARE NOTE (08/26)-->Pt with a sacral unstageable being treated with medihoney. No changes to dimensions at this time. Also, pt favoring Left side of head and has developed a 1x1 serous filled blister on his left ear. Primary nurse placed duoderm on the ear. Wound care nurse left duoderm in place , and recommends leaving it on until it falls off on its own. Pt has been NPO for several days, new peg inserted yesterday. Will be starting glucerna tube feedings later today. Albumin 3.3 * Turn q 2 hours * medihoney on unstageable ulcer * duoderm on left ear aurical ulcer: this is healed as of 09/15/17 * Prevalon Boots for Right Heal Blister 09/13/17 * 09/02/17: examined with Wound Care Nurse Emeka Samuel and periphery of the Sacral Wound is pink with some bleeding however center is still black and therefore still unstageable. Continue spray with Cavelon followed by thick coating with MediHoney followed by covering with OptiFoam once a day. * 09/03/17: Change of sacral ulcer dressing was performed by me with assitance from Nurse Lyman * 09/04/17: 09/03/17: Change of sacral ulcer dressing was performed by me with assistance from ALEXANDRA Unger * Per wound care note (09/07): sacral ulcer is stable per wound care nurse * 09/14/17: Sacral Ulcer is unstageable and area of blackness fills entire circumference. General Surgery consult placed to see if debridement is necessary. Continue Cavelon [place] followed by paulina thick coating of MediHoney followed by covering with OptiFoam. * 09/15/17: Surgery Team debrided Sacral Ulcer and Bone Scan will need to be followed up which was performed 09/17/17 * 09/18/17: With the help of Nurse Guzman, applied Cavelon [place] followed by thick coating of MediHoney followed by covering with OptiFoam * 09/19/17: Dressing for Sacral Ulcer already changed before my exam. Explained to Nurse Megan that best application of MediHoney would be to cover the padding of the OptiFoam with it and then apply the OptiFoam to the ulcer. Status: Acute (16) Elevated LFTs Assessment and Plan: * 08/27: Yina * Discussed with cardiology-->changed amiodarone 200mg PO tid to amiodaron 200mg PO daily * D/C tylenol * Held Statin * patient is also on Rocephin to cover for pneumonia * Will not start antifungal * 08/29: starting to down trending since change in amiodarone dose; awaiting to restart statin * 08/30: continues to trend down. Amiodarone was discontinued * 09/01: AST, ALT, Alk Phos still elevated but stable * 09/02: AST, ALT, Alk Phos still elevated but stable * 09/03: LFTs stable * 09/04: LFTs stable Status: Acute (17). Hx Constipation * Monitor bowel movement * Multiple bowel movements on 09/13/17 and 09/14/17 that are well formed s/p Fleet Enema on 09/13/17 * 09/15/17: NO bowel movement * 09/16/17: Soft pasty bowel movement * 09/17/17: Soft pasty bowel movement * 09/18/17: NO bowel movement * 09/19/17: ordered one dose of Lactulose 20 gm via PEG as still no bowel movement (18). Hyponatremia * 09/19/17: at 127 monitor for now (19). Prophylactic measure Assessment and Plan: * Pepcid 20mg PO daily * Start Eliquis 2.5mg PO BID * s/p peg placement 08/25 * s/p trachesostomy 08/22 * s/p Permcath placement 08/22 removal Kurtis catheter * s/p right posterior chest tube 08/19-->removed 08/24 * s/p Right Arm PICC 08/26 * (Jovita Serrano): -->number provided to the nurse- ->consented for peg placement; discussed about LTAC 08/26 * Spoke with Dr. Pickard, MARIAJOSE regarding patient's hospitalization up until this point 08/2609/01/17: Dr. Cullen Barth spoke with the patient's [place] with the assistance of Nurse Campos on 3 tower (as multiple attempts of using [place] indicated that all of the Welsh translators were busy) and explained all of the patient's diagnosises. 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 Her ultimate wish is to take patient to [facility] where their children live. I explained to patient that I would not know how that would be coordinated but that the Social Workers/Field Sales Executive at LTAC may be of assistance in this regard. I also informed her that I am not aware of any insurance company that would finance this request. She understands that the patient is awaiting insurance approval for LTAC. 09/01/17 and 09/02/17: Dr. Cullen Barth spoke with Service Secretary Demetria and we are still awaiting insurance authorization for LTAC placement. 09/05/17: Spoke with nehal, social service coordinator, wean trials sent to LTAC pending approval no word yet regarding approval. Ordered for repeat cultures given uptrend in white count. 09/06/17: pending repeat cultures in light of elevated procalcitonin; ID recommended to reculture. Note: patients PICC lined had clogged ports. Red port remains clogged in spite of cath rafaela. Blue port improved after cath rafaela. Possible may need to remove line to r/o infected line. Strong suspicion due to patient's pneumonia given he has thick secretions. 09/07/17: Infectious disease. pending repeat cultures in light of elevated procalcitonin; Note: patients PICC lined had clogged ports. Red port remains clogged in spite of cath rafaela. Blue port improved after cath rafaela. Hip xray negative for acute fracture. There are no noted falls. 09/08/17: Patient denied for LTAC; awaiting for other options from case management/social work. Resident Daniel spoke with Dr. Cortés, patient be transferred under regular bed, when bed is available. Infectious disease on board; Patient started on IV Vancomycin in light of + blood culture. Pending chest xray. 09/09/17: Patient denied for LTAC; awaiting for other options from case management/social work with kamlesh verdin support. Patient started on IV Vancomycin MWF in light of + blood culture. Pending chest xray. F/U sputum with ID. f/u latest blood cultures. 09/13/17: Rapid response for low blood pressure and elevated WBC likely Septic Shock. Started on Levophed, added Meropenem to Vancomycin and 1 dose of Gentamycin given after speaking with ID. Ordered Obstruction Series as no bowel movement since 09/07/17. F/U Shock Panel. Discussed with ICU Resident to arrange for Change of Right Arm Midline line and Trach Collar. 09/14/17: Will await results of Blood Culture 09/13/17 to determine if the Right Arm Midline, Right Chest Perm Cath, and Trach Collar needs to be changed. Spoke with Service Secretary Demetria in ICU and patient information has been sent to [facility] (they accept patients on Trach) and she is awaiting to hear back from them before submitting approval request to insurance company. 09/15/17: Passy [place] Trach placed by Housekeeper/Laundry Assistant. Surgical Team for debridement of Sacral Ulcer. Spoke with patient's ([place] [id number]) and explained/updated her on patient condition and obtained consent for sacral ulcer debridement. 09/16/17: Still awaiting performance of Sacral Bone Scan 09/17/17: Bone Scan performed and awaiting results 09/18/17: Awaiting Bone Scan Report 09/19/17: Still awaiting Bone Scan Report. Spoke again with Service Secretary Demetria and NO word yet from [facility] or [facility] (they do treat patients with Trachs). 09/20/17: Repeat Wound culture and urine culture sent. Dressing changed with medihoney and optifoam. No other changes at this time. Still waiting for approval for [facility] 09/21/17: No changes at this time. Will continue to change wound dressing Q3D and follow up with case management for for correction transfer. 09/22/17: Dressing changed today with medihoney. Healing appropriately. Talked to case management. Still no update from [facility] transfer. Bone scan negative for osteo. Repeat wound cultures continue to grow Enterococcus. Will follow up sensitivities 09/26/17: Dialysis today. Dressing changed with optifoam and medihoney (nickel thick). VRE/germania in wound. Talked to case management. No updates at this time 09/27/17: dressing changed today with optifoam and medihoney (Nickel thick). Case management says no new information from [facility]. Will update as new information becomes available. 09/28/17: dressing changed today with optifoam and medihoney (Nickel thick). Case management says no new information from [facility]. Will update as new information becomes available. 3x3cm unstageable ulcer on R. heel present. Will talk to surgery for possible bedside debridment. 09/29/17:Talked to case management again today. No new information. Patient is tachycardiac and having blood tinged sputum in his trach collar. Will order a chest xray. 09/30/17: Talked to case management again today. No new information. went for dialysis yesterday due to excess fluid. Changed dressing at bedside today. 10/03/17: Dressing changed daily. Talked to ID on duration of Tigecycline, will evaluate wound. Surgery will also evaluate wound. Accepted at [facility]. Needs 2 days for authorization. Plan discharge on Tuesday10/04/17: Surgery saw and evaluated the wound today. They said no surgical intervention is needed. Talked to case management and still planning for discharge on Tuesday. Will follow up with ID on Tigecyline duration. 10/05/17: Patient lost approval for [facility]. Social work and case management is looking for a new [facility] at the moment. Tigecycline has been discontinued per ID. No other updates at this time. 10/06/17: Patient had dressing changed today. Diflucan has been d/c today per ID. No other updates from has management 10/07/17: Patient had dressing change today. Will repeat wound cultures tomorrow. No other updates at this time. <Tadeo Stoll - Last Filed: 11/01/17 15:53> Objective - Vital Signs/Intake and Output Vital Signs (last 24 hours): Temp Pulse Resp BP Pulse Ox 98.6 F 122 H 34 H 117/38 L 98 11/01/17 12:00 11/01/17 12:00 11/01/17 12:00 11/01/17 11:00 11/01/17 12:00 Intake and Output: 11/01/17 11/01/17 06:59 18:59 Intake Total 1240 100 Output Total 180 Balance 1060 100 - Medications Medications: Current Medications Ascorbic Acid (Vitamin C 500 Mg Tab) 500 mg PEG DAILY [facility] Last Admin: 11/01/17 09:23 Dose: 500 mg Aspirin (Aspirin Chewable) 81 mg PO DAILY [facility] Last Admin: 11/01/17 09:23 Dose: 81 mg Calcitriol (Rocaltrol) 0.25 mcg PEG DAILY [facility] Last Admin: 11/01/17 09:45 Dose: 0.25 mcg Epoetin [place] (Procrit) 10,000 unit IV MWF [facility] Last Admin: 10/31/17 11:58 Dose: 10,000 unit Micafungin Sodium 100 mg/ (Sodium Chloride) 100 mls @ 100 mls/hr IV Q24H [facility] Last Admin: 10/31/17 17:45 Dose: 100 mls/hr Meropenem 500 mg/ Sodium (Chloride) 100 mls @ 100 mls/hr IVPB Q8 [facility] Last Admin: 11/01/17 13:30 Dose: 100 mls/hr Insulin Aspart (Novolog) 0 unit SC Q6 [facility] PRN Reason: Protocol Last Admin: 11/01/17 12:31 Dose: 1 unit Insulin Detemir (Levemir) 35 unit SC Q12 [facility] Last Admin: 11/01/17 09:24 Dose: 35 unit Ipratropium [place] (Atrovent) 0.5 mg IH RQ6 [facility] Last Admin: 11/01/17 13:47 Dose: 0.5 mg Loperamide HCl (Imodium) 1 mg PO Q4H PRN PRN Reason: Diarrhea Last Admin: 10/30/17 09:54 Dose: 1 mg Metoprolol Tartrate (Lopressor) 25 mg PEG BIDBS [facility] Last Admin: 10/25/17 09:58 Dose: Not Given Metronidazole (Flagyl) 500 mg GT Q8 [facility] Last Admin: 11/01/17 13:29 Dose: 500 mg Midodrine (Proamatine) 10 mg PO TID [facility] Last Admin: 11/01/17 13:30 Dose: 10 mg Multivitamins (Hexavitamin) 1 tab PEG DAILY [facility] Ondansetron HCl (Zofran Inj) 4 mg IVP Q8H PRN PRN Reason: Nausea/Vomiting Pantoprazole Sodium (Protonix Inj) 40 mg IVP DAILY [facility] Last Admin: 11/01/17 09:22 Dose: 40 mg Rosuvastatin Calcium (Crestor) 10 mg PO HS [facility] Last Admin: 10/31/17 21:29 Dose: 10 mg Saccharomyces Boulardii (Florastor) 250 mg PO BID [facility] Last Admin: 11/01/17 09:23 Dose: 250 mg Vitamin A (Vitamin A & D Oint Ud Foilpak) 0.5 ea TOP Q1H PRN PRN Reason: Dry skin Last Admin: 11/01/17 09:23 Dose: 0.5 ea - Labs Labs: 11/01/17 06:37 11/01/17 06:37 PT 13.4 SECONDS (9.7-12.2) H 10/14/17 16:30 INR 1.2 10/14/17 16:30 APTT 28 SECONDS (21-34) 10/14/17 16:30 Attending/Attestation - Attestation I have personally seen and examined this patient.: Yes I have fully participated in the care of the patient.: Yes I have reviewed all pertinent clinical information, including history, physical exam and plan: Yes Notes (Text): complicated course after code now on HD decub wound hypotension poor prognosis
[2017-10-09] MEDS: Acetylcysteine 20% Inhal Soln (4ml) INH SCH ×4 (01:59→20:17)
[2017-10-09] MEDS: Albuterol-Ipratrop 3 mg / 0.5 (3 ml) UD INH SCH ×4 (01:59→20:17)
[2017-10-09 07:02] LABS: BASO # 0.1 K/uL (0.0-0.2); BASO % 0.4 % (0.0-2.0); EOS # 0.4 K/uL (0.0-0.7); EOS % 1.9 % (0.0-4.0); HEMATOCRIT 27.4 % (35.0-51.0); LYMPH # 2.7 K/uL (1.0-4.3); LYMPH % 14.5 % (20.0-40.0); MEAN CELL VOLUME 82.3 fL (80.0-94.0); MEAN CORPUSCULAR HEMOGLOBIN 25.1 pg (27.0-31.0); MEAN CORPUSCULAR HGB CONC 30.5 g/dL (33.0-37.0); MEAN PLATELET VOLUME 8.5 fL (7.2-11.7); MONO % 5.6 % (0.0-10.0); RED CELL DISTRIBUTION WIDTH 24.7 % (11.5-14.5); WHITE BLOOD COUNT 18.4 K/uL (4.8-10.8)
[2017-10-09 07:19] LABS: POTASSIUM 3.7 mmol/L (3.6-5.2)
[2017-10-09 07:22] LABS: ALB/GLOB RATIO 0.8 (1.0-2.1); BILIRUBIN,TOTAL 0.5 mg/dL (0.2-1.3); TOTAL PROTEIN 5.9 g/dL (6.3-8.3)
[2017-10-09 07:23] LABS: CALCIUM 8.7 mg/dl (8.6-10.4)
[2017-10-09] MEDS: Insulin Detemir 100 units/ml Vial (Levemir) SC SCH ×2 (10:55→21:53)
[2017-10-09] MEDS: Saccharomyces Boulardi 250 mg Cap PO SCH ×2 (10:56→17:41)
[2017-10-09] MEDS: (Novolin R) Insulin Human Regular 100 units/ml vial SC SCH (12:00)
[2017-10-09] MEDS: Ferric Sodium Gluconat Complex 62.5 mg/5 ml Vial IVPB SCH (17:41)
--- NOTE | 2017-10-09 18:02 | CP.PCM.PN ---
Subjective - Date & Time of Evaluation Date of Evaluation: 10/09/17 Time of Evaluation: 15:10 - Subjective Subjective: Patient seen and evaluated Awake and responds appropriately Not in distress Physical Examination - Constitutional Appears: Chronically Ill - Head Exam Head Exam: ATRAUMATIC, NORMAL INSPECTION, NORMOCEPHALIC - Eye Exam Eye Exam: EOMI Pupil Exam: NORMAL ACCOMODATION - ENT Exam ENT Exam: Mucous Membranes Moist - Neck Exam Additional comments: trach - Respiratory Exam Respiratory Exam: Clear to Ausculation Bilateral, NORMAL BREATHING PATTERN - Cardiovascular Exam Cardiovascular Exam: REGULAR RHYTHM - GI/Abdominal Exam GI & Abdominal Exam: Soft, Normal Bowel Sounds. absent: Distended, Tenderness - Extremities Exam Extremities Exam: absent: Joint Swelling, Tenderness - Back Exam Additional comments: 10x10 unstageable ulcer with healthy granulation tissue. No necrotic tissue. optifoam dressing with medihoney. Clear dry and intact - Neurological Exam Neurological Exam: Alert, Awake - Psychiatric Exam Psychiatric exam: Normal Affect, Normal Mood - Skin Skin Exam: Dry, Intact, Normal Color, Warm Objective - Vital Signs/Intake and Output Vital Signs (last 24 hours): Temp Pulse Resp BP Pulse Ox 97.8 F 97 H 18 106/55 L 100 10/09/17 16:00 10/09/17 16:09 10/09/17 16:00 10/09/17 16:00 10/09/17 16:00 Intake and Output: 10/09/17 10/09/17 06:59 18:59 Intake Total 400 Balance 400 - Medications Medications: Current Medications Acetylcysteine (Acetylcysteine 20%) 4 ml INH RQ6 [facility] Last Admin: 10/09/17 13:11 Dose: Not Given Albuterol/Ipratropium (Duoneb 3 Mg/0.5 Mg (3 Ml) Ud) 3 ml INH RQ6 [facility] Last Admin: 10/09/17 13:12 Dose: 3 ml Apixaban (Eliquis) 2.5 mg PO BID [facility] Last Admin: 10/09/17 17:41 Dose: 2.5 mg Aspirin (Aspirin Chewable) 81 mg PO DAILY [facility] Last Admin: 10/09/17 10:56 Dose: 81 mg Epoetin [place] (Procrit) 10,000 unit IV MWF [facility] Last Admin: 10/07/17 18:51 Dose: 10,000 unit Famotidine (Pepcid) 20 mg PO DAILY [facility] Last Admin: 10/09/17 10:56 Dose: 20 mg Ferric Sodium Gluconate Complex (Ferrlecit) 125 mg IVPB DAILY@1600 [facility] Stop: 10/12/17 16:01 Last Admin: 10/09/17 17:41 Dose: 125 mg Insulin Aspart (Novolog) 0 unit SC Q6 [facility] PRN Reason: Protocol Last Admin: 10/09/17 17:41 Dose: 3 unit Insulin Detemir (Levemir) 30 unit SC Q12 [facility] Last Admin: 10/09/17 10:55 Dose: 30 unit Metoprolol Tartrate (Lopressor) 50 mg PO BID [facility] Last Admin: 10/09/17 17:41 Dose: 50 mg Metronidazole (Flagyl) 500 mg PO Q8 [facility] Last Admin: 10/09/17 13:24 Dose: 500 mg Rosuvastatin Calcium (Crestor) 10 mg PO HS [facility] Last Admin: 10/08/17 21:28 Dose: 10 mg Saccharomyces Boulardii (Florastor) 250 mg PO BID [facility] Last Admin: 10/09/17 17:41 Dose: 250 mg - Labs Labs: 10/09/17 06:52 10/09/17 06:52 PT 13.9 SECONDS (9.7-12.2) H 08/24/17 06:08 INR 1.2 08/24/17 06:08 APTT 55 SECONDS (21-34) H D 08/17/17 06:12 Assessment and Plan - Assessment and Plan (Free Text) Assessment: Assessment and Plan - Assessment and Plan (Free Text) Assessment: Atrial Fibrillation Intermittent Rate controlled. On Metoprolol 50 mg PO BID, Eliquis 2.5 mg PO BID CAD, chest pain -No current plans for cardiac cath (acute respiratory failure and elevated Cr) , history of abnormal stress test -Elevated Troponin likely due to chest compressions during cardiac arrest 08/10 -No acute ST changes on EKG -Continue ASA, Crestor, Metoprolol. -Echocardiogram from 08/08/17 showed left ventricle systolic function is severely impaired. EF: 25-30%; global hypokinesis of LV mild AR. MR is moderate. Moderate-severe pulmonary hypertension Systolic CHF exacerbation -CXR 09/09: Diminished bilateral basilar airspace disease; stable cardiomegaly -BNP [id number] on 08/06/17 -Continue ASA, Crestor, Metoprolol -Echocardiogram from 08/08/17 showed left ventricle systolic function is severely impaired. EF: 25-30%; global hypokinesis of LV mild AR. MR is moderate. Moderate-severe pulmonary hypertesnion Dobutamine discontinued in light of atrial flutter-type episodes Diabetes Mellitus ISS Continue to monitor ESRD on HD Currently on HD On Procrit and Phoslo Nephro on the case Prophylaxis Pepcid 20 mg PO daily Eliquis 2.5 mg PO BID (Renal precautions) Disposition Awaiting Transfer to LT[facility]
[2017-10-10] MEDS: (Novolog) Insulin Aspart, Recombinant 100 u/ml 10 ml vial SC SCH ×4 (00:02→17:52)
[2017-10-10] MEDS: Albuterol-Ipratrop 3 mg / 0.5 (3 ml) UD INH SCH ×4 (03:59→20:22)
[2017-10-10] MEDS: Acetylcysteine 20% Inhal Soln (4ml) INH SCH ×4 (03:59→20:22)
[2017-10-10] MEDS: Epoetin Alfa 10,000 unit/ml Dialysis IV SCH (09:49)
[2017-10-10] MEDS: Ferric Sodium Gluconat Complex 62.5 mg/5 ml Vial IVPB SCH ×2 (09:50→16:41)
[2017-10-10] MEDS: Insulin Detemir 100 units/ml Vial (Levemir) SC SCH ×2 (10:00→21:27)
[2017-10-10 10:16] LABS: BASO # 0.1 K/uL (0.0-0.2); BASO % 0.8 % (0.0-2.0); EOS # 0.4 K/uL (0.0-0.7); HEMATOCRIT 25.9 % (35.0-51.0); LYMPH # 3.2 K/uL (1.0-4.3); LYMPH % 18.2 % (20.0-40.0); MEAN CELL VOLUME 82.2 fL (80.0-94.0); MEAN CORPUSCULAR HEMOGLOBIN 25.5 pg (27.0-31.0); MEAN PLATELET VOLUME 8.6 fL (7.2-11.7); MONO # 0.9 K/uL (0.0-0.8); NRBC % 0.1 % (0.0-2.0); RED CELL DISTRIBUTION WIDTH 24.7 % (11.5-14.5); WHITE BLOOD COUNT 17.9 K/uL (4.8-10.8)
[2017-10-10 10:28] LABS: POTASSIUM 3.5 mmol/L (3.6-5.2)
[2017-10-10 10:30] LABS: ALB/GLOB RATIO 0.8 (1.0-2.1); BILIRUBIN,TOTAL 0.6 mg/dL (0.2-1.3); TOTAL PROTEIN 5.9 g/dL (6.3-8.3)
[2017-10-10 10:31] LABS: CALCIUM 9.1 mg/dl (8.6-10.4)
--- NOTE | 2017-10-10 12:08 | CP.PCM.PN ---
Subjective - Date & Time of Evaluation Date of Evaluation: 10/10/17 Time of Evaluation: 12:06 - Subjective Subjective: Seen at dialysis appears same to UF 1500ml Hg low at 8.0 Objective - Vital Signs/Intake and Output Vital Signs (last 24 hours): Temp Pulse Resp BP Pulse Ox 97.9 F 101 H 20 138/56 L 94 L 10/10/17 00:00 10/10/17 00:00 10/10/17 00:00 10/10/17 00:00 10/10/17 00:00 Intake and Output: 10/10/17 10/10/17 06:59 18:59 Intake Total 500 Balance 500 - Medications Medications: Current Medications Acetylcysteine (Acetylcysteine 20%) 4 ml INH RQ6 [facility] Last Admin: 10/10/17 07:20 Dose: Not Given Albuterol/Ipratropium (Duoneb 3 Mg/0.5 Mg (3 Ml) Ud) 3 ml INH RQ6 [facility] Last Admin: 10/10/17 07:20 Dose: Not Given Apixaban (Eliquis) 2.5 mg PO BID [facility] Last Admin: 10/09/17 17:41 Dose: 2.5 mg Aspirin (Aspirin Chewable) 81 mg PO DAILY [facility] Last Admin: 10/09/17 10:56 Dose: 81 mg Epoetin [place] (Procrit) 10,000 unit IV MWF [facility] Last Admin: 10/10/17 09:49 Dose: 10,000 unit Famotidine (Pepcid) 20 mg PO DAILY [facility] Last Admin: 10/09/17 10:56 Dose: 20 mg Ferric Sodium Gluconate Complex (Ferrlecit) 125 mg IVPB DAILY@1600 [facility] Stop: 10/12/17 16:01 Last Admin: 10/10/17 09:50 Dose: 125 mg Insulin Aspart (Novolog) 0 unit SC Q6 [facility] PRN Reason: Protocol Last Admin: 10/10/17 06:44 Dose: 2 unit Insulin Detemir (Levemir) 30 unit SC Q12 [facility] Last Admin: 10/09/17 21:53 Dose: 30 unit Metoprolol Tartrate (Lopressor) 50 mg PO BID [facility] Last Admin: 10/09/17 17:41 Dose: 50 mg Metronidazole (Flagyl) 500 mg PO Q8 [facility] Last Admin: 10/10/17 06:41 Dose: 500 mg Rosuvastatin Calcium (Crestor) 10 mg PO HS [facility] Last Admin: 10/09/17 21:53 Dose: 10 mg Saccharomyces Boulardii (Florastor) 250 mg PO BID [facility] Last Admin: 10/09/17 17:41 Dose: 250 mg - Labs Labs: 10/10/17 10:10 10/10/17 10:10 PT 13.9 SECONDS (9.7-12.2) H 08/24/17 06:08 INR 1.2 08/24/17 06:08 APTT 55 SECONDS (21-34) H D 08/17/17 06:12 - Constitutional Appears: No Acute Distress, Chronically Ill - Head Exam Head Exam: ATRAUMATIC, NORMAL INSPECTION - Eye Exam Eye Exam: EOMI, Normal appearance - Neck Exam Neck Exam: Normal Inspection. absent: Tenderness - Respiratory Exam Respiratory Exam: Clear to Ausculation Bilateral, NORMAL BREATHING PATTERN - Cardiovascular Exam Cardiovascular Exam: Irregular Rhythm, +S1 - GI/Abdominal Exam GI & Abdominal Exam: Soft. absent: Tenderness - Extremities Exam Extremities Exam: Normal Inspection. absent: Tenderness - Neurological Exam Neurological Exam: Alert, CN II-XII Intact - Skin Skin Exam: Dry, Warm Assessment and Plan (1) Acute on chronic renal failure Status: Resolved (2) CAD (coronary artery disease) Status: Chronic (3) CHF exacerbation Status: Chronic (4) Type 2 diabetes mellitus with diabetic nephropathy Status: Acute (5) Cardiorenal disease Status: Acute (6) ESRD (end stage renal disease) Status: Acute - Assessment and Plan (Free Text) Plan: Dialysis MWF check Fe stores, continue ESAs await placement
[2017-10-10] MEDS: Saccharomyces Boulardi 250 mg Cap PO SCH ×2 (13:53→17:54)
--- NOTE | 2017-10-10 15:24 | CP.PCM.PN ---
<Sina White - Last Filed: 10/10/17 15:22> Subjective - Date & Time of Evaluation Date of Evaluation: 10/10/17 Time of Evaluation: 15:22 - Subjective Subjective: Patient seen and examined awake and alert started flagyl yesterday due to increasing WBC no updates from Case management at this time repeated wound culture on sacral decub - if negative will d/c contact precautions continue wound care Objective - Vital Signs/Intake and Output Vital Signs (last 24 hours): Temp Pulse Resp BP Pulse Ox 97.9 F 115 H 16 125/60 95 10/10/17 09:20 10/10/17 12:34 10/10/17 12:34 10/10/17 12:34 10/10/17 12:34 Intake and Output: 10/10/17 10/10/17 06:59 18:59 Intake Total 500 Balance 500 - Medications Medications: Current Medications Acetylcysteine (Acetylcysteine 20%) 4 ml INH RQ6 [facility] Last Admin: 10/10/17 13:25 Dose: Not Given Albuterol/Ipratropium (Duoneb 3 Mg/0.5 Mg (3 Ml) Ud) 3 ml INH RQ6 [facility] Last Admin: 10/10/17 13:25 Dose: Not Given Apixaban (Eliquis) 2.5 mg PO BID [facility] Last Admin: 10/10/17 13:56 Dose: 2.5 mg Aspirin (Aspirin Chewable) 81 mg PO DAILY [facility] Last Admin: 10/10/17 13:53 Dose: 81 mg Epoetin Chencho (Procrit) 10,000 unit IV MWF [facility] Last Admin: 10/10/17 09:49 Dose: 10,000 unit Famotidine (Pepcid) 20 mg PO DAILY [facility] Last Admin: 10/10/17 13:53 Dose: 20 mg Ferric Sodium Gluconate Complex (Ferrlecit) 125 mg IVPB DAILY@1600 [facility] Stop: 10/12/17 16:01 Last Admin: 10/10/17 09:50 Dose: 125 mg Insulin Aspart (Novolog) 0 unit SC Q6 [facility] PRN Reason: Protocol Last Admin: 10/10/17 13:52 Dose: 1 unit Insulin Detemir (Levemir) 30 unit SC Q12 [facility] Last Admin: 10/09/17 21:53 Dose: 30 unit Metoprolol Tartrate (Lopressor) 50 mg PO BID [facility] Last Admin: 10/10/17 13:53 Dose: 50 mg Metronidazole (Flagyl) 500 mg PO Q8 [facility] Last Admin: 10/10/17 13:53 Dose: 500 mg Rosuvastatin Calcium (Crestor) 10 mg PO HS [facility] Last Admin: 10/09/17 21:53 Dose: 10 mg Saccharomyces Boulardii (Florastor) 250 mg PO BID [facility] Last Admin: 10/10/17 13:53 Dose: 250 mg - Labs Labs: 10/10/17 10:10 10/10/17 10:10 PT 13.9 SECONDS (9.7-12.2) H 08/24/17 06:08 INR 1.2 08/24/17 06:08 APTT 55 SECONDS (21-34) H D 08/17/17 06:12 - Additional Findings Additional findings: - Constitutional Appears: Well, No Acute Distress - Head Exam Head Exam: ATRAUMATIC, NORMOCEPHALIC - Eye Exam Eye Exam: EOMI - ENT Exam ENT Exam: Mucous Membranes Moist - Neck Exam Additional comments: Trach Collar - Respiratory Exam Respiratory Exam: Clear to Ausculation Bilateral - Cardiovascular Exam Cardiovascular Exam: REGULAR RHYTHM, +S1, +S2 - GI/Abdominal Exam GI & Abdominal Exam: Soft, Normal Bowel Sounds. absent: Distended, Tenderness - Back Exam Additional comments: 10cm x 10cm unstageable ulcer with healthy granulation tissue. No necrotic tissue. Optifoam dressing with medihoney. - Neurological Exam Neurological Exam: Alert, Awake - Psychiatric Exam Psychiatric exam: Normal Affect, Normal Mood Assessment and Plan - Assessment and Plan (Free Text) Assessment: (1) Acute Respiratory Failure ARDS Cardiac Arrest Pulmonary Edema Nonstemi Assessment and Plan: * Code Blue on 08/10: asystole, cardiopulmonary resuscitative measures initiated , requiring 3 epis, bicarbonate, ROSC achieved and intubated and brought to the ICU for further management; Patient in the ICU from 08/10 until present. * Pulmonary: Dr Mena (Dr. Jeffers covering until 09/04/17)-->help appreciated * Cardiology: Dr. Cortés on board-->help appreciated * GI (Dr. Wills) on board-->help appreciated * S/P Tracheostomy 08/22 * S/P Peg tube placement 08/25 * s/p insertion of right posterior chest tube 08/19-->removed 08/24/17 * There was consideration for possible thoracentesis of left side pleural effusion, evaluated by IR, there is no fluid to drain per Dr. Gross * Chest xray (08/26): right arm PICC is seen with the tip of distal subclavian vein. PICC may be used * Per cardiology, * Restart Aspirin 81mg PO daily * Patient does not need Plavix at this time * Recommend for Eliquis 2.5mg PO BID for atrial flutter * 08/27: patient is pending LTAC, he went eventually need cardiac catheterization when he has stabilized. Held statin secondary to elevated LFTs. Discussed with Dr. Cortés, lowered Amiodarone 200mg PO daily * 08/28: patient is pending LTAC, he went eventually need cardiac catheterization when he has stabilized. Liver function tests improving * 08/29: Internal Medicine Specialist Nehal has sent request to insurance for authorization for LTAC-->pending * 09/06: pending social work/case management approval for LTAC * 09/07: pending social work/case management approval for LTAC * 09/08: Unable to get approval for LTAC; pending other options * 09/09: Transferred from step-down ICU to the floors * 09/13: Trasnferred back to ICU S/P Rapid Response for low blood pressure * 09/14: Currently on Acetylcysteine 20 % Neb Q6H and Duoneb Q6H * 09/15: [place] Trach placed by [employer] (2) Abnormal Stress Test History of AICD History of Coronary Artery Disease Assessment and Plan: * Cardiology (Dr. Cortés) on board-->help appreciated * TSH: 1.16; T4: 1.53 * Echocardiogram (08/08/17): left ventricle systolic function is severely impaired. EF: 25-30%; global hypokinesis of left ventricle mild aortic regurgitation. Mitral regurgitation is moderate. Moderate-severe pulmonary hypertension * Plan was for cardiac catheterization; delayed due to acute renal failure; Attempted gentle hydration and mucomyst on 08/09 to optimize prior to cath * On 08/10, patient was in asystole, ACLS protocol, ROSC achieved, intubated and transfered to the ICU. Patient in acute pulmonary edema. * Patient hospitalized in the ICU since 08/10/17 to present. * Medications: * Aspirin 81mg PO daily * Plavix d/c by cardiology * Lopressor 50mg PO bid * d/c Crestor 10mg POqHS secondary to rise in LFTS 08/27--->monitor LFTs daily * ARB d/c secondary to acute renal failure * 08/27: patient is pending LTAC, he went eventually need cardiac catheterization when he has stabilized. Held statin secondary to elevated LFTs. Discussed with Dr. Cortés, lowered Amiodarone 200mg PO daily * 08/28: He will eventually need cardiac catheterization when he has stabilized. Liver function tests improving. Statin is on hold (3) Atrial flutter Assessment and Plan: * Cardiology (Dr. Cortés) on board-->help appreciated * Refractory to Lopressor/Cardizem IVP * Eliquis 2.5mg PO bid * Amiodarone bolus-->Amiodarine drip on 08/24-->converted to Amiodarone 200mg PO TID on 08/26 and this was decreased to 200 mg 1x/day due to increased LFTs * 08/27: Discussed with Dr. Cortés, will lower Amiodarone 200mg PO daily and monitor LFTs. Statin held and tylenol d/c * 08/29: patient is pending LTAC, he will eventually need cardiac catheterization when he has stabilized. Liver function tests improving. Statin is on hold due to the elevated LFTs * 08/30: Cardiology discontinued the Amiodarone * 09/07: Held eliquis; will need to resume * 09/09: Eliquis resumed, off Amiodarone Status: Acute (4) Acute on Chronic Systolic CHF exacerbation Assessment and Plan: * Cardiology (Dr. Cortés) on board-->help appreciated * Transferred to the ICU on 08/10 following cardiac arrest and intubation. * Echocardiogram (08/08/17): left ventricular systolic function is severely impaired. EF: 25-30%; global hypokinesis of left ventricle mild aortic regurgitation. Mitral regurgitation is moderate. Moderate-severe pulmonary hypertension * Medications: * Aspirin 81mg PO daily * Plavix d/c by cardiology * Lopressor 50mg PO bid * d/c Crestor 10mg POqHS on 08/27 secondary to rise in LFTs * ARB d/c secondary to acute renal failure Status: Acute (5) Leukocytosis Assessment and Plan: * Patient's white count downtrending * Pleural Fluid 08/19/17 did not show any growth * Blood cultures (08/26): no growth X5 days * UA and urine culture (08/27): Urine Culture showed Yeast Species. * Patient has elevated LFTs-->did not start anti-fungal in light of LFTs New: * 09/05/17 Blood: gram positive cocci-->pending speciation * 09/05/17 Blood: no growth after 4 days * 09/07/17 Legionella Culture: negative * 09/07/17 Mycobacteria: negative * 09/07/17 Sputum: Enterocloace Bacter; yeast * 09/07/17 Blood: negative X 48 hours * 09/07/17 Blood: negative X 48 hours * 09/06: stool culture pending; has not had diarrhea or bowel movement * 09/07: Dr. Zimmer (covering Dr. Lawrence) to see the patient given elevated procalcitonin * Blood Culture 09/13/17 is negative to date and Urine Culture 09/13/17 showed Yeast Species * 09/14: Could this be secondary to the Septic Shock? Secondary to Osteomyelitis of the Sacrum? 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) and Meropenem 500 mg IV Q8H (09/13/17 through 09/16/17), Diflucan 200 mg PO 1x/day (09/13/17), Bactrim 10 mL PO Q12H (09/12/17 through 09/16/17), Tigecycline 50 mg IV Q12H (09/16/17 started because of VRE on Sacrum Wound Culture 09/14/17) * ESR 09/14/17 elevated at 89 * Bone Scan performed 09/17/17 to check for Osteomyelitis at the Sacrum: results are pending * Meropenem 500 mg IV Q12H (09/13/17 through 09/16/17: which will cover the Enterbacter in the Sputum 09/07/17 and the possibility of Sacral Osteomyelitis) * Antibiotics as of 09/17/17:Tigecycline (09/16/17: which will cover the VRE in Sacral Wound Culture 09/14/17 and the possibility of Sacral Osteomyelitis) and Diflucan 200 mg PO 1x/day (09/13/17: which will cover with Yeast in the Sputum, Urine, and Sacral Wound Culture) Status: Acute (6) Pneumonia Assessment and Plan: * Pulmonary (Dr. Mena) on board-->help appreciated; Dr. Jeffers covering while Dr. Mena away * Infectious Disease (Dr. Lawrecne)-->help appreciated * Chest xray (08/26): right arm PICC is seen with the tip of distal subclavian vein. PICC may be used * Rapid A strep, Influenza A and B studies, Urine Legionella, Mycoplasma studies = Negative * Florastor 250mg PO bid * 08/07/17: +Strep Pneumoniae in the urine * Meropenem 500mg IV Q 8 hours (08/14/17 through 08/18/17) and Zosyn 2.25 mg IV Q6H (08/13/17 through 08/18/17) * Cefepime 1 gm IV Q24H: started on 08/19/17 and was discontinued by ID Dr. Lawrence on 08/30/17: monitor vitals and labs * s/p right posterior chest tube 08/19-08/24 * Sputum Culture 08/19/17 shows No growth * Pleural fluid 08/19/17: No growth * 09/07/17 Sputum: Enterocloace Bacter and Yeast Species: See Antibiotic treatment in previous Assessment and Plan * Sputum 09/10/17 shows NO AFB Status: Acute (7) HTN (hypertension) Assessment and Plan: * Lopressor 50mg PO bid * Lisinopril 5mg PO daily Status: Chronic (8) CKD (chronic kidney disease) on Dialysis Assessment and Plan: * Dr. Miranda (nephrology) consulted on the case * Hx of CKD-->Started on dialysis 08/15/17 * Kurtis catheter placed and removed 08/22 * s/p Right Chest Permcath 08/22 * Patient is on dialysis M-W-F; oliguric * Phoslo 1334mg GT TID * Epoetin 10,000 unit IV MWF Status: Acute (9) Diabetes mellitus Assessment and Plan: * Accuchecks Q6H * HgbA1c 8.4 * Started peg feedings on 08/26/17 * Nepro-->50 ml/hour but this was held 09/13/17 due suspicion of Bowel Obstruction as NO bowel Movement since 09/07/17. This was restarted on after NO obstruction was observed on Obstruction Series 09/13/17 and after multiple bowel movement s/p Fleet Enema 09/13/17 (10) HLD (hyperlipidemia) Assessment and Plan: * 08/27: held Crestor 10 mg PO HS secondary to rise in LFTs * 08/29: Liver function tests improving; waiting to restart statin Status: Chronic (11) Anemia Assessment and Plan: * Heme-oncology (Dr. Giles bender) on board-->help appreciated * Likely iron deficiency anemia based on prior admissions * Ferritin 27.4, Iron 22, TIBC 322, % Saturation 7 * Ferric Sodium Gluconate 125mg IVPB daily (active 08/08-08/16) * Procrit 10,000 units -- * Monitor Hgb/Hct: stable Status: Chronic (12) History of DVT (deep vein thrombosis) Assessment and Plan: * Patient was previously on Eliquis for a prior history of DVT. * Repeat dopplers 08/09/17 are negative for DVT * Off Heparin Drip 08/17/17 * Started Eliquis 2.5mg PO BID for atrial flutter and history of DVT Status: Chronic (13) UTI Assessment and Plan: * Infectious disease (Dr. Lawrence) on board-->help appreciated * Exchange jaquez out and repeat urine cultures * Urine Culture 08/12/17 showed Gram Negative Rods: NO identification and NO sensitivities were performed * Meropenem 500mg IV Q 12hours (active since 08/14/17 through 08/18/17) to cover for UTI per ID * Repeat Urine Culture 08/18/17 shows NO growth * 08/25: reculture in light of leukocytosis * 08/27: pending urine studies * 08/30: Urine Culture 08/27/17 showed Yeast Species but no antifungal at that time secondary to recent history of Elevated LFTs * Urine Culture 09/13/17 showed Yeast Species: he is on Diflucan Status: Chronic (14) Confusion; Alzheimer's Dementia Assessment and Plan: * Per daughter, patient has been getting bouts of confusion over the past year but appears at baseline. Patient has not seen formal neurology as outpatient per daughter. Per , prior to event, noted Alzheimers' disease dx one year ago * CT head w/o contrast (08/10/17):acute os subacute lacune infarct is not excluded in the left basal ganglia inferiorly with definitive chronic lacune identified in the right basal ganglia superiorly. No acute or subacute lobar brain infarction is appreciable by standard CT criteria. Mild age-related neuro degenerative changes are identifed. No acute intracranial hemorrhage or mass is identified throughout * 08/26: Off Sedation-->patient moves all extremities randomly but does not follow directions * 08/27: off sedation-->patient is very calm, smiles at his * 08/28: off sedation-->patient is very calm Status: Chronic (15) Unstageable Sacral Ulcer, Left Ear Auricle Ulcer, Right Heal Ulcer Assessment and Plan: * Wound care on board * WOUND CARE NOTE (08/26)-->Pt with a sacral unstageable being treated with medihoney. No changes to dimensions at this time. Also, pt favoring Left side of head and has developed a 1x1 serous filled blister on his left ear. Primary nurse placed duoderm on the ear. Wound care nurse left duoderm in place , and recommends leaving it on until it falls off on its own. Pt has been NPO for several days, new peg inserted yesterday. Will be starting glucerna tube feedings later today. Albumin 3.3 * Turn q 2 hours * medihoney on unstageable ulcer * duoderm on left ear aurical ulcer: this is healed as of 09/15/17 * Prevalon Boots for Right Heal Blister 09/13/17 * 09/02/17: examined with Wound Care Nurse Emeka Samuel and periphery of the Sacral Wound is pink with some bleeding however center is still black and therefore still unstageable. Continue spray with Cavelon followed by thick coating with MediHoney followed by covering with OptiFoam once a day. * 09/03/17: Change of sacral ulcer dressing was performed by me with assitance from Nurse Lyman * 09/04/17: 09/03/17: Change of sacral ulcer dressing was performed by me with assistance from ALEXANDRA Unger * Per wound care note (09/07): sacral ulcer is stable per wound care nurse * 09/14/17: Sacral Ulcer is unstageable and area of blackness fills entire circumference. General Surgery consult placed to see if debridement is necessary. Continue Cavelon Ohlman followed by paulina thick coating of MediHoney followed by covering with OptiFoam. * 09/15/17: Surgery Team debrided Sacral Ulcer and Bone Scan will need to be followed up which was performed 09/17/17 * 09/18/17: With the help of Nurse Guzman, applied Cavelon Ohlman followed by thick coating of MediHoney followed by covering with OptiFoam * 09/19/17: Dressing for Sacral Ulcer already changed before my exam. Explained to Nurse Megan that best application of MediHoney would be to cover the padding of the OptiFoam with it and then apply the OptiFoam to the ulcer. Status: Acute (16) Elevated LFTs Assessment and Plan: * 08/27: Yina * Discussed with cardiology-->changed amiodarone 200mg PO tid to amiodaron 200mg PO daily * D/C tylenol * Held Statin * patient is also on Rocephin to cover for pneumonia * Will not start antifungal * 08/29: starting to down trending since change in amiodarone dose; awaiting to restart statin * 08/30: continues to trend down. Amiodarone was discontinued * 09/01: AST, ALT, Alk Phos still elevated but stable * 09/02: AST, ALT, Alk Phos still elevated but stable * 09/03: LFTs stable * 09/04: LFTs stable Status: Acute (17). Hx Constipation * Monitor bowel movement * Multiple bowel movements on 09/13/17 and 09/14/17 that are well formed s/p Fleet Enema on 09/13/17 * 09/15/17: NO bowel movement * 09/16/17: Soft pasty bowel movement * 09/17/17: Soft pasty bowel movement * 09/18/17: NO bowel movement * 09/19/17: ordered one dose of Lactulose 20 gm via PEG as still no bowel movement (18). Hyponatremia * 09/19/17: at 127 monitor for now (19). Prophylactic measure Assessment and Plan: * Pepcid 20mg PO daily * Start Eliquis 2.5mg PO BID * s/p peg placement 08/25 * s/p trachesostomy 08/22 * s/p Permcath placement 08/22 removal Kurtis catheter * s/p right posterior chest tube 08/19-->removed 08/24 * s/p Right Arm PICC 08/26 * (Jovita Serrano): -->number provided to the nurse- ->consented for peg placement; discussed about LTAC 08/26 * Spoke with Dr. Pickard, MARIAJOSE regarding patient's hospitalization up until this point 08/2609/01/17: Dr. Cullen Barth spoke with the patient's [place] with the assistance of Nurse Campos on 3 tower (as multiple attempts of using [employer] indicated that all of the Salvadorean translators were busy) and explained all of the patient's diagnosises. 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 Her ultimate wish is to take patient to [facility] where their children live. I explained to patient that I would not know how that would be coordinated but that the Social Workers/Stope Miner at LT may be of assistance in this regard. I also informed her that I am not aware of any insurance company that would finance this request. She understands that the patient is awaiting insurance approval for LTAC. 09/01/17 and 09/02/17: Dr. Cullen Barth spoke with Head [employer] Tennis [employer] Demetria and we are still awaiting insurance authorization for LTAC placement. 09/05/17: Spoke with nehal, delinquency prevention social worker, wean trials sent to LTAC pending approval no word yet regarding approval. Ordered for repeat cultures given uptrend in white count. 09/06/17: pending repeat cultures in light of elevated procalcitonin; ID recommended to reculture. Note: patients PICC lined had clogged ports. Red port remains clogged in spite of cath rafaela. Blue port improved after cath rafaela. Possible may need to remove line to r/o infected line. Strong suspicion due to patient's pneumonia given he has thick secretions. 09/07/17: Infectious disease. pending repeat cultures in light of elevated procalcitonin; Note: patients PICC lined had clogged ports. Red port remains clogged in spite of cath rafaela. Blue port improved after cath rafaela. Hip xray negative for acute fracture. There are no noted falls. 09/08/17: Patient denied for LTAC; awaiting for other options from case management/social work. Resident Daniel spoke with Dr. Cortés, patient be transferred under regular bed, when bed is available. Infectious disease on board; Patient started on IV Vancomycin in light of + blood culture. Pending chest xray. 09/09/17: Patient denied for LTAC; awaiting for other options from case management/social work with kamlesh verdin support. Patient started on IV Vancomycin MWF in light of + blood culture. Pending chest xray. F/U sputum with ID. f/u latest blood cultures. 09/13/17: Rapid response for low blood pressure and elevated WBC likely Septic Shock. Started on Levophed, added Meropenem to Vancomycin and 1 dose of Gentamycin given after speaking with ID. Ordered Obstruction Series as no bowel movement since 09/07/17. F/U Shock Panel. Discussed with ICU Resident to arrange for Change of Right Arm Midline line and Trach Collar. 09/14/17: Will await results of Blood Culture 09/13/17 to determine if the Right Arm Midline, Right Chest Perm Cath, and Trach Collar needs to be changed. Spoke with Head [employer]S Tennis Coach Demetria in ICU and patient information has been sent to [facility] (they accept patients on Trach) and she is awaiting to hear back from them before submitting approval request to insurance [employer]. 09/15/17: [place] Trach placed by [employer]. Surgical Team for debridement of Sacral Ulcer. Spoke with patient's ([place] Denisa [id number]) and explained/updated her on patient condition and obtained consent for sacral ulcer debridement. 09/16/17: Still awaiting performance of Sacral Bone Scan 09/17/17: Bone Scan performed and awaiting results 09/18/17: Awaiting Bone Scan Report 09/19/17: Still awaiting Bone Scan Report. Spoke again with Head [employer]S Tennis [employer] Demetria and NO word yet from [facility] or [facility] (they do treat patients with Trachs). 09/20/17: Repeat Wound culture and urine culture sent. Dressing changed with medihoney and optifoam. No other changes at this time. Still waiting for approval for [facility] 09/21/17: No changes at this time. Will continue to change wound dressing Q3D and follow up with case management for for skilled nursing transfer. 09/22/17: Dressing changed today with medihoney. Healing appropriately. Talked to case management. Still no update from care home transfer. Bone scan negative for osteo. Repeat wound cultures continue to grow Enterococcus. Will follow up sensitivities 09/26/17: Dialysis today. Dressing changed with optifoam and medihoney (nickel thick). VRE/germania in wound. Talked to case management. No updates at this time 09/27/17: dressing changed today with optifoam and medihoney (Nickel thick). Case management says no new information from [facility]. Will update as new information becomes available. 09/28/17: dressing changed today with optifoam and medihoney (Nickel thick). Case management says no new information from [facility]. Will update as new information becomes available. 3x3cm unstageable ulcer on R. heel present. Will talk to surgery for possible bedside debridment. 09/29/17:Talked to case management again today. No new information. Patient is tachycardiac and having blood tinged sputum in his trach collar. Will order a chest xray. 09/30/17: Talked to case management again today. No new information. went for dialysis yesterday due to excess fluid. Changed dressing at bedside today. 10/03/17: Dressing changed daily. Talked to ID on duration of Tigecycline, will evaluate wound. Surgery will also evaluate wound. Accepted at [facility]. Needs 2 days for authorization. Plan discharge on Tuesday10/04/17: Surgery saw and evaluated the wound today. They said no surgical intervention is needed. Talked to case management and still planning for discharge on Tuesday. Will follow up with ID on Tigecyline duration. 10/05/17: Patient lost approval for [facility]. Social work and case management is looking for a new care home at the moment. Tigecycline has been discontinued per ID. No other updates at this time. 10/06/17: Patient had dressing changed today. Diflucan has been d/c today per ID. No other updates from has management 10/07/17: Patient had dressing change today. Will repeat wound cultures tomorrow. No other updates at this time. <Tadeo Stoll - Last Filed: 11/01/17 15:54> Objective - Vital Signs/Intake and Output Vital Signs (last 24 hours): Temp Pulse Resp BP Pulse Ox 98.6 F 122 H 34 H 117/38 L 98 11/01/17 12:00 11/01/17 12:00 11/01/17 12:00 11/01/17 11:00 11/01/17 12:00 Intake and Output: 11/01/17 11/01/17 06:59 18:59 Intake Total 1240 100 Output Total 180 Balance 1060 100 - Medications Medications: Current Medications Ascorbic Acid (Vitamin C 500 Mg Tab) 500 mg PEG DAILY [facility] Last Admin: 11/01/17 09:23 Dose: 500 mg Aspirin (Aspirin Chewable) 81 mg PO DAILY [facility] Last Admin: 11/01/17 09:23 Dose: 81 mg Calcitriol (Rocaltrol) 0.25 mcg PEG DAILY [facility] Last Admin: 11/01/17 09:45 Dose: 0.25 mcg Epoetin Chencho (Procrit) 10,000 unit IV MWF [facility] Last Admin: 10/31/17 11:58 Dose: 10,000 unit Micafungin Sodium 100 mg/ (Sodium Chloride) 100 mls @ 100 mls/hr IV Q24H [facility] Last Admin: 10/31/17 17:45 Dose: 100 mls/hr Meropenem 500 mg/ Sodium (Chloride) 100 mls @ 100 mls/hr IVPB Q8 [facility] Last Admin: 11/01/17 13:30 Dose: 100 mls/hr Insulin Aspart (Novolog) 0 unit SC Q6 [facility] PRN Reason: Protocol Last Admin: 11/01/17 12:31 Dose: 1 unit Insulin Detemir (Levemir) 35 unit SC Q12 [facility] Last Admin: 11/01/17 09:24 Dose: 35 unit Ipratropium [place] (Atrovent) 0.5 mg IH RQ6 [facility] Last Admin: 11/01/17 13:47 Dose: 0.5 mg Loperamide HCl (Imodium) 1 mg PO Q4H PRN PRN Reason: Diarrhea Last Admin: 10/30/17 09:54 Dose: 1 mg Metoprolol Tartrate (Lopressor) 25 mg PEG BIDBS [facility] Last Admin: 10/25/17 09:58 Dose: Not Given Metronidazole (Flagyl) 500 mg GT Q8 [facility] Last Admin: 11/01/17 13:29 Dose: 500 mg Midodrine (Proamatine) 10 mg PO TID [facility] Last Admin: 11/01/17 13:30 Dose: 10 mg Multivitamins (Hexavitamin) 1 tab PEG DAILY [facility] Ondansetron HCl (Zofran Inj) 4 mg IVP Q8H PRN PRN Reason: Nausea/Vomiting Pantoprazole Sodium (Protonix Inj) 40 mg IVP DAILY [facility] Last Admin: 11/01/17 09:22 Dose: 40 mg Rosuvastatin Calcium (Crestor) 10 mg PO HS [facility] Last Admin: 10/31/17 21:29 Dose: 10 mg Saccharomyces Boulardii (Florastor) 250 mg PO BID [facility] Last Admin: 11/01/17 09:23 Dose: 250 mg Vitamin A (Vitamin A & D Oint Ud Foilpak) 0.5 ea TOP Q1H PRN PRN Reason: Dry skin Last Admin: 11/01/17 09:23 Dose: 0.5 ea - Labs Labs: 11/01/17 06:37 11/01/17 06:37 PT 13.4 SECONDS (9.7-12.2) H 10/14/17 16:30 INR 1.2 10/14/17 16:30 APTT 28 SECONDS (21-34) 10/14/17 16:30 Attending/Attestation - Attestation I have personally seen and examined this patient.: Yes I have fully participated in the care of the patient.: Yes I have reviewed all pertinent clinical information, including history, physical exam and plan: Yes Notes (Text): complicated course after code now on HD decub wound hypotension poor prognosis
--- NOTE | 2017-10-10 22:11 | CP.PCM.PN ---
Subjective - Date & Time of Evaluation Date of Evaluation: 10/10/17 Time of Evaluation: 09:40 - Subjective Subjective: Patient seen and evaluated No cardiac events noted Physical Examination - Constitutional Appears: Chronically Ill - Head Exam Head Exam: ATRAUMATIC, NORMAL INSPECTION, NORMOCEPHALIC - Eye Exam Eye Exam: EOMI Pupil Exam: NORMAL ACCOMODATION - ENT Exam ENT Exam: Mucous Membranes Moist - Neck Exam Additional comments: trach - Respiratory Exam Respiratory Exam: Clear to Ausculation Bilateral, NORMAL BREATHING PATTERN - Cardiovascular Exam Cardiovascular Exam: REGULAR RHYTHM - GI/Abdominal Exam GI & Abdominal Exam: Soft, Normal Bowel Sounds. absent: Distended, Tenderness - Extremities Exam Extremities Exam: absent: Joint Swelling, Tenderness - Back Exam Additional comments: 10x10 unstageable ulcer with healthy granulation tissue. No necrotic tissue. optifoam dressing with medihoney. Clear dry and intact - Neurological Exam Neurological Exam: Alert, Awake - Psychiatric Exam Psychiatric exam: Normal Affect, Normal Mood - Skin Skin Exam: Dry, Intact, Normal Color, Warm Objective - Vital Signs/Intake and Output Vital Signs (last 24 hours): Temp Pulse Resp BP Pulse Ox 98.8 F 97 H 20 106/62 100 10/10/17 15:05 10/10/17 18:00 10/10/17 15:05 10/10/17 15:05 10/10/17 15:05 Intake and Output: 10/10/17 10/11/17 18:59 06:59 Intake Total 400 Balance 400 - Medications Medications: Current Medications Acetylcysteine (Acetylcysteine 20%) 4 ml INH RQ6 [facility] Last Admin: 10/10/17 20:22 Dose: 4 ml Albuterol/Ipratropium (Duoneb 3 Mg/0.5 Mg (3 Ml) Ud) 3 ml INH RQ6 [facility] Last Admin: 10/10/17 20:22 Dose: 3 ml Apixaban (Eliquis) 2.5 mg PO BID [facility] Last Admin: 10/10/17 18:02 Dose: 2.5 mg Aspirin (Aspirin Chewable) 81 mg PO DAILY [facility] Last Admin: 10/10/17 13:53 Dose: 81 mg Epoetin Chencho (Procrit) 10,000 unit IV MWF [facility] Last Admin: 10/10/17 09:49 Dose: 10,000 unit Famotidine (Pepcid) 20 mg PO DAILY [facility] Last Admin: 10/10/17 13:53 Dose: 20 mg Ferric Sodium Gluconate Complex (Ferrlecit) 125 mg IVPB DAILY@1600 [facility] Stop: 10/12/17 16:01 Last Admin: 10/10/17 16:41 Dose: Not Given Insulin Aspart (Novolog) 0 unit SC Q6 [facility] PRN Reason: Protocol Last Admin: 10/10/17 17:52 Dose: 2 unit Insulin Detemir (Levemir) 30 unit SC Q12 [facility] Last Admin: 10/10/17 21:27 Dose: 30 unit Metoprolol Tartrate (Lopressor) 50 mg PO BID [facility] Last Admin: 10/10/17 17:53 Dose: 50 mg Metronidazole (Flagyl) 500 mg PO Q8 [facility] Last Admin: 10/10/17 21:27 Dose: 500 mg Rosuvastatin Calcium (Crestor) 10 mg PO HS [facility] Last Admin: 10/10/17 21:27 Dose: 10 mg Saccharomyces Boulardii (Florastor) 250 mg PO BID [facility] Last Admin: 10/10/17 17:54 Dose: 250 mg - Labs Labs: 10/10/17 10:10 10/10/17 10:10 PT 13.9 SECONDS (9.7-12.2) H 08/24/17 06:08 INR 1.2 08/24/17 06:08 APTT 55 SECONDS (21-34) H D 08/17/17 06:12 Assessment and Plan - Assessment and Plan (Free Text) Assessment: Assessment and Plan - Assessment and Plan (Free Text) Assessment: Atrial Fibrillation Intermittent Rate controlled. On Metoprolol 50 mg PO BID, Eliquis 2.5 mg PO BID CAD, chest pain -No current plans for cardiac cath (acute respiratory failure and elevated Cr) , history of abnormal stress test -Elevated Troponin likely due to chest compressions during cardiac arrest 08/10 -No acute ST changes on EKG -Continue ASA, Crestor, Metoprolol. -Echocardiogram from 08/08/17 showed left ventricle systolic function is severely impaired. EF: 25-30%; global hypokinesis of LV mild AR. MR is moderate. Moderate-severe pulmonary hypertension Systolic CHF exacerbation -CXR 09/09: Diminished bilateral basilar airspace disease; stable cardiomegaly -BNP [id number] on 08/06/17 -Continue ASA, Crestor, Metoprolol -Echocardiogram from 08/08/17 showed left ventricle systolic function is severely impaired. EF: 25-30%; global hypokinesis of LV mild AR. MR is moderate. Moderate-severe pulmonary hypertesnion Dobutamine discontinued in light of atrial flutter-type episodes Diabetes Mellitus ISS Continue to monitor ESRD on HD Currently on HD On Procrit and Phoslo Nephro on the case Prophylaxis Pepcid 20 mg PO daily Eliquis 2.5 mg PO BID (Renal precautions) Disposition Awaiting Transfer to LT[facility]
[2017-10-11] MEDS: (Novolog) Insulin Aspart, Recombinant 100 u/ml 10 ml vial SC SCH ×4 (00:12→17:57)
[2017-10-11] MEDS: Albuterol-Ipratrop 3 mg / 0.5 (3 ml) UD INH SCH ×4 (01:20→20:46)
[2017-10-11] MEDS: Acetylcysteine 20% Inhal Soln (4ml) INH SCH ×4 (01:20→20:46)
--- NOTE | 2017-10-11 09:23 | CP.PCM.PN ---
<Sina White - Last Filed: 10/11/17 13:28> Subjective - Date & Time of Evaluation Date of Evaluation: 10/11/17 Time of Evaluation: 09:19 - Subjective Subjective: Patient seen and examined Will talk to pulm for when we can decannulate Waiting on repeat wound cultures Dressing changed today No other updates at this time Objective - Vital Signs/Intake and Output Vital Signs (last 24 hours): Temp Pulse Resp BP Pulse Ox 99.5 F 108 H 20 114/65 100 10/11/17 08:00 10/11/17 08:00 10/11/17 08:00 10/11/17 08:00 10/11/17 08:00 - Medications Medications: Current Medications Acetylcysteine (Acetylcysteine 20%) 4 ml INH RQ6 [facility] Last Admin: 10/11/17 07:36 Dose: 4 ml Albuterol/Ipratropium (Duoneb 3 Mg/0.5 Mg (3 Ml) Ud) 3 ml INH RQ6 [facility] Last Admin: 10/11/17 07:36 Dose: 3 ml Apixaban (Eliquis) 2.5 mg PO BID [facility] Last Admin: 10/10/17 18:02 Dose: 2.5 mg Aspirin (Aspirin Chewable) 81 mg PO DAILY [facility] Last Admin: 10/10/17 13:53 Dose: 81 mg Epoetin Chencho (Procrit) 10,000 unit IV MWF [facility] Last Admin: 10/10/17 09:49 Dose: 10,000 unit Famotidine (Pepcid) 20 mg PO DAILY [facility] Last Admin: 10/10/17 13:53 Dose: 20 mg Ferric Sodium Gluconate Complex (Ferrlecit) 125 mg IVPB DAILY@1600 [facility] Stop: 10/12/17 16:01 Last Admin: 10/10/17 16:41 Dose: Not Given Insulin Aspart (Novolog) 0 unit SC Q6 [facility] PRN Reason: Protocol Last Admin: 10/11/17 07:32 Dose: 4 unit Insulin Detemir (Levemir) 30 unit SC Q12 [facility] Last Admin: 10/10/17 21:27 Dose: 30 unit Metoprolol Tartrate (Lopressor) 50 mg PO BID [facility] Last Admin: 10/10/17 17:53 Dose: 50 mg Metronidazole (Flagyl) 500 mg PO Q8 [facility] Last Admin: 10/11/17 07:32 Dose: 500 mg Rosuvastatin Calcium (Crestor) 10 mg PO HS [facility] Last Admin: 10/10/17 21:27 Dose: 10 mg Saccharomyces Boulardii (Florastor) 250 mg PO BID [facility] Last Admin: 10/10/17 17:54 Dose: 250 mg - Labs Labs: 10/10/17 10:10 10/10/17 10:10 PT 13.9 SECONDS (9.7-12.2) H 08/24/17 06:08 INR 1.2 08/24/17 06:08 APTT 55 SECONDS (21-34) H D 08/17/17 06:12 - Additional Findings Additional findings: - Constitutional Appears: Well, No Acute Distress - Head Exam Head Exam: ATRAUMATIC, NORMOCEPHALIC - Eye Exam Eye Exam: EOMI - ENT Exam ENT Exam: Mucous Membranes Moist - Neck Exam Additional comments: Trach Collar - Respiratory Exam Respiratory Exam: Clear to Ausculation Bilateral - Cardiovascular Exam Cardiovascular Exam: REGULAR RHYTHM, +S1, +S2 - GI/Abdominal Exam GI & Abdominal Exam: Soft, Normal Bowel Sounds. absent: Distended, Tenderness - Back Exam Additional comments: 10cm x 10cm unstageable ulcer with healthy granulation tissue. No necrotic tissue. Optifoam dressing with medihoney. - Neurological Exam Neurological Exam: Alert, Awake - Psychiatric Exam Psychiatric exam: Normal Affect, Normal Mood Assessment and Plan - Assessment and Plan (Free Text) Assessment: (1) Acute Respiratory Failure ARDS Cardiac Arrest Pulmonary Edema Nonstemi Assessment and Plan: * Code Blue on 08/10: asystole, cardiopulmonary resuscitative measures initiated , requiring 3 epis, bicarbonate, ROSC achieved and intubated and brought to the ICU for further management; Patient in the ICU from 08/10 until present. * Pulmonary: Dr Mena (Dr. Jeffers covering until 09/04/17)-->help appreciated * Cardiology: Dr. Cortés on board-->help appreciated * GI (Dr. Wills) on board-->help appreciated * S/P Tracheostomy 08/22 * S/P Peg tube placement 08/25 * s/p insertion of right posterior chest tube 08/19-->removed 08/24/17 * There was consideration for possible thoracentesis of left side pleural effusion, evaluated by IR, there is no fluid to drain per Dr. Gross * Chest xray (08/26): right arm PICC is seen with the tip of distal subclavian vein. PICC may be used * Per cardiology, * Restart Aspirin 81mg PO daily * Patient does not need Plavix at this time * Recommend for Eliquis 2.5mg PO BID for atrial flutter * 08/27: patient is pending LTAC, he went eventually need cardiac catheterization when he has stabilized. Held statin secondary to elevated LFTs. Discussed with Dr. Cortés, lowered Amiodarone 200mg PO daily * 08/28: patient is pending LTAC, he went eventually need cardiac catheterization when he has stabilized. Liver function tests improving * 08/29: Engineering Leader Nehal has sent request to insurance for authorization for LTAC-->pending * 09/06: pending social work/case management approval for LTAC * 09/07: pending social work/case management approval for LTAC * 09/08: Unable to get approval for LTAC; pending other options * 09/09: Transferred from step-down ICU to the floors * 09/13: Trasnferred back to ICU S/P Rapid Response for low blood pressure * 09/14: Currently on Acetylcysteine 20 % Neb Q6H and Duoneb Q6H * 09/15: Passy Flex Trach placed by Switchboard Mechanic (2) Abnormal Stress Test History of AICD History of Coronary Artery Disease Assessment and Plan: * Cardiology (Dr. Cortés) on board-->help appreciated * TSH: 1.16; T4: 1.53 * Echocardiogram (08/08/17): left ventricle systolic function is severely impaired. EF: 25-30%; global hypokinesis of left ventricle mild aortic regurgitation. Mitral regurgitation is moderate. Moderate-severe pulmonary hypertension * Plan was for cardiac catheterization; delayed due to acute renal failure; Attempted gentle hydration and mucomyst on 08/09 to optimize prior to cath * On 08/10, patient was in asystole, ACLS protocol, ROSC achieved, intubated and transfered to the ICU. Patient in acute pulmonary edema. * Patient hospitalized in the ICU since 08/10/17 to present. * Medications: * Aspirin 81mg PO daily * Plavix d/c by cardiology * Lopressor 50mg PO bid * d/c Crestor 10mg POqHS secondary to rise in LFTS 08/27--->monitor LFTs daily * ARB d/c secondary to acute renal failure * 08/27: patient is pending LTAC, he went eventually need cardiac catheterization when he has stabilized. Held statin secondary to elevated LFTs. Discussed with Dr. Cortés, lowered Amiodarone 200mg PO daily * 08/28: He will eventually need cardiac catheterization when he has stabilized. Liver function tests improving. Statin is on hold (3) Atrial flutter Assessment and Plan: * Cardiology (Dr. Cortés) on board-->help appreciated * Refractory to Lopressor/Cardizem IVP * Eliquis 2.5mg PO bid * Amiodarone bolus-->Amiodarine drip on 08/24-->converted to Amiodarone 200mg PO TID on 08/26 and this was decreased to 200 mg 1x/day due to increased LFTs * 08/27: Discussed with Dr. Cortés, will lower Amiodarone 200mg PO daily and monitor LFTs. Statin held and tylenol d/c * 08/29: patient is pending LTAC, he will eventually need cardiac catheterization when he has stabilized. Liver function tests improving. Statin is on hold due to the elevated LFTs * 08/30: Cardiology discontinued the Amiodarone * 09/07: Held eliquis; will need to resume * 09/09: Eliquis resumed, off Amiodarone Status: Acute (4) Acute on Chronic Systolic CHF exacerbation Assessment and Plan: * Cardiology (Dr. Cortés) on board-->help appreciated * Transferred to the ICU on 08/10 following cardiac arrest and intubation. * Echocardiogram (08/08/17): left ventricular systolic function is severely impaired. EF: 25-30%; global hypokinesis of left ventricle mild aortic regurgitation. Mitral regurgitation is moderate. Moderate-severe pulmonary hypertension * Medications: * Aspirin 81mg PO daily * Plavix d/c by cardiology * Lopressor 50mg PO bid * d/c Crestor 10mg POqHS on 08/27 secondary to rise in LFTs * ARB d/c secondary to acute renal failure Status: Acute (5) Leukocytosis Assessment and Plan: * Patient's white count downtrending * Pleural Fluid 08/19/17 did not show any growth * Blood cultures (08/26): no growth X5 days * UA and urine culture (08/27): Urine Culture showed Yeast Species. * Patient has elevated LFTs-->did not start anti-fungal in light of LFTs New: * 09/05/17 Blood: gram positive cocci-->pending speciation * 09/05/17 Blood: no growth after 4 days * 09/07/17 Legionella Culture: negative * 09/07/17 Mycobacteria: negative * 09/07/17 Sputum: Enterocloace Bacter; yeast * 09/07/17 Blood: negative X 48 hours * 09/07/17 Blood: negative X 48 hours * 09/06: stool culture pending; has not had diarrhea or bowel movement * 09/07: Dr. Zimmer (covering Dr. Lawrence) to see the patient given elevated procalcitonin * Blood Culture 09/13/17 is negative to date and Urine Culture 09/13/17 showed Yeast Species * 09/14: Could this be secondary to the Septic Shock? Secondary to Osteomyelitis of the Sacrum? 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) and Meropenem 500 mg IV Q8H (09/13/17 through 09/16/17), Diflucan 200 mg PO 1x/day (09/13/17), Bactrim 10 mL PO Q12H (09/12/17 through 09/16/17), Tigecycline 50 mg IV Q12H (09/16/17 started because of VRE on Sacrum Wound Culture 09/14/17) * ESR 09/14/17 elevated at 89 * Bone Scan performed 09/17/17 to check for Osteomyelitis at the Sacrum: results are pending * Meropenem 500 mg IV Q12H (09/13/17 through 09/16/17: which will cover the Enterbacter in the Sputum 09/07/17 and the possibility of Sacral Osteomyelitis) * Antibiotics as of 09/17/17:Tigecycline (09/16/17: which will cover the VRE in Sacral Wound Culture 09/14/17 and the possibility of Sacral Osteomyelitis) and Diflucan 200 mg PO 1x/day (09/13/17: which will cover with Yeast in the Sputum, Urine, and Sacral Wound Culture) Status: Acute (6) Pneumonia Assessment and Plan: * Pulmonary (Dr. Mena) on board-->help appreciated; Dr. Jeffers covering while Dr. Mena away * Infectious Disease (Dr. Lawrence)-->help appreciated * Chest xray (08/26): right arm PICC is seen with the tip of distal subclavian vein. PICC may be used * Rapid A strep, Influenza A and B studies, Urine Legionella, Mycoplasma studies = Negative * Florastor 250mg PO bid * 08/07/17: +Strep Pneumoniae in the urine * Meropenem 500mg IV Q 8 hours (08/14/17 through 08/18/17) and Zosyn 2.25 mg IV Q6H (08/13/17 through 08/18/17) * Cefepime 1 gm IV Q24H: started on 08/19/17 and was discontinued by ID Dr. Lawrence on 08/30/17: monitor vitals and labs * s/p right posterior chest tube 08/19-08/24 * Sputum Culture 08/19/17 shows No growth * Pleural fluid 08/19/17: No growth * 09/07/17 Sputum: Enterocloace Bacter and Yeast Species: See Antibiotic treatment in previous Assessment and Plan * Sputum 09/10/17 shows NO AFB Status: Acute (7) HTN (hypertension) Assessment and Plan: * Lopressor 50mg PO bid * Lisinopril 5mg PO daily Status: Chronic (8) CKD (chronic kidney disease) on Dialysis Assessment and Plan: * Dr. Miranda (nephrology) consulted on the case * Hx of CKD-->Started on dialysis 08/15/17 * Kurtis catheter placed and removed 08/22 * s/p Right Chest Permcath 08/22 * Patient is on dialysis M-W-F; oliguric * Phoslo 1334mg GT TID * Epoetin 10,000 unit IV MWF Status: Acute (9) Diabetes mellitus Assessment and Plan: * Accuchecks Q6H * HgbA1c 8.4 * Started peg feedings on 08/26/17 * Nepro-->50 ml/hour but this was held 09/13/17 due suspicion of Bowel Obstruction as NO bowel Movement since 09/07/17. This was restarted on after NO obstruction was observed on Obstruction Series 09/13/17 and after multiple bowel movement s/p Fleet Enema 09/13/17 (10) HLD (hyperlipidemia) Assessment and Plan: * 08/27: held Crestor 10 mg PO HS secondary to rise in LFTs * 08/29: Liver function tests improving; waiting to restart statin Status: Chronic (11) Anemia Assessment and Plan: * Heme-oncology (Dr. Giles bender) on board-->help appreciated * Likely iron deficiency anemia based on prior admissions * Ferritin 27.4, Iron 22, TIBC 322, % Saturation 7 * Ferric Sodium Gluconate 125mg IVPB daily (active 08/08-08/16) * Procrit 10,000 units M-W- * Monitor Hgb/Hct: stable Status: Chronic (12) History of DVT (deep vein thrombosis) Assessment and Plan: * Patient was previously on Eliquis for a prior history of DVT. * Repeat dopplers 08/09/17 are negative for DVT * Off Heparin Drip 08/17/17 * Started Eliquis 2.5mg PO BID for atrial flutter and history of DVT Status: Chronic (13) UTI Assessment and Plan: * Infectious disease (Dr. Lawrence) on board-->help appreciated * Exchange jaquez out and repeat urine cultures * Urine Culture 08/12/17 showed Gram Negative Rods: NO identification and NO sensitivities were performed * Meropenem 500mg IV Q 12hours (active since 08/14/17 through 08/18/17) to cover for UTI per ID * Repeat Urine Culture 08/18/17 shows NO growth * 08/25: reculture in light of leukocytosis * 08/27: pending urine studies * 08/30: Urine Culture 08/27/17 showed Yeast Species but no antifungal at that time secondary to recent history of Elevated LFTs * Urine Culture 09/13/17 showed Yeast Species: he is on Diflucan Status: Chronic (14) Confusion; Alzheimer's Dementia Assessment and Plan: * Per daughter, patient has been getting bouts of confusion over the past year but appears at baseline. Patient has not seen formal neurology as outpatient per daughter. Per , prior to event, noted Alzheimers' disease dx one year ago * CT head w/o contrast (08/10/17):acute os subacute lacune infarct is not excluded in the left basal ganglia inferiorly with definitive chronic lacune identified in the right basal ganglia superiorly. No acute or subacute lobar brain infarction is appreciable by standard CT criteria. Mild age-related neuro degenerative changes are identifed. No acute intracranial hemorrhage or mass is identified throughout * 08/26: Off Sedation-->patient moves all extremities randomly but does not follow directions * 08/27: off sedation-->patient is very calm, smiles at his * 08/28: off sedation-->patient is very calm Status: Chronic (15) Unstageable Sacral Ulcer, Left Ear Auricle Ulcer, Right Heal Ulcer Assessment and Plan: * Wound care on board * WOUND CARE NOTE (08/26)-->Pt with a sacral unstageable being treated with medihoney. No changes to dimensions at this time. Also, pt favoring Left side of head and has developed a 1x1 serous filled blister on his left ear. Primary nurse placed duoderm on the ear. Wound care nurse left duoderm in place , and recommends leaving it on until it falls off on its own. Pt has been NPO for several days, new peg inserted yesterday. Will be starting glucerna tube feedings later today. Albumin 3.3 * Turn q 2 hours * medihoney on unstageable ulcer * duoderm on left ear aurical ulcer: this is healed as of 09/15/17 * Prevalon Boots for Right Heal Blister 09/13/17 * 09/02/17: examined with Wound Care Nurse Emeka Samuel and periphery of the Sacral Wound is pink with some bleeding however center is still black and therefore still unstageable. Continue spray with Cavelon followed by thick coating with MediHoney followed by covering with OptiFoam once a day. * 09/03/17: Change of sacral ulcer dressing was performed by me with assitance from Nurse Lyman * 09/04/17: 09/03/17: Change of sacral ulcer dressing was performed by me with assistance from ALEXANDRA Unger * Per wound care note (09/07): sacral ulcer is stable per wound care nurse * 09/14/17: Sacral Ulcer is unstageable and area of blackness fills entire circumference. General Surgery consult placed to see if debridement is necessary. Continue Cavelon [place] followed by paulina thick coating of MediHoney followed by covering with OptiFoam. * 09/15/17: Surgery Team debrided Sacral Ulcer and Bone Scan will need to be followed up which was performed 09/17/17 * 09/18/17: With the help of Nurse Guzman, applied Cavelon [place] followed by thick coating of MediHoney followed by covering with OptiFoam * 09/19/17: Dressing for Sacral Ulcer already changed before my exam. Explained to Nurse Megan that best application of MediHoney would be to cover the padding of the OptiFoam with it and then apply the OptiFoam to the ulcer. Status: Acute (16) Elevated LFTs Assessment and Plan: * 08/27: Yina * Discussed with cardiology-->changed amiodarone 200mg PO tid to amiodaron 200mg PO daily * D/C tylenol * Held Statin * patient is also on Rocephin to cover for pneumonia * Will not start antifungal * 08/29: starting to down trending since change in amiodarone dose; awaiting to restart statin * 08/30: continues to trend down. Amiodarone was discontinued * 09/01: AST, ALT, Alk Phos still elevated but stable * 09/02: AST, ALT, Alk Phos still elevated but stable * 09/03: LFTs stable * 09/04: LFTs stable Status: Acute (17). Hx Constipation * Monitor bowel movement * Multiple bowel movements on 09/13/17 and 09/14/17 that are well formed s/p Fleet Enema on 09/13/17 * 09/15/17: NO bowel movement * 09/16/17: Soft pasty bowel movement * 09/17/17: Soft pasty bowel movement * 09/18/17: NO bowel movement * 09/19/17: ordered one dose of Lactulose 20 gm via PEG as still no bowel movement (18). Hyponatremia * 09/19/17: at 127 monitor for now (19). Prophylactic measure Assessment and Plan: * Pepcid 20mg PO daily * Start Eliquis 2.5mg PO BID * s/p peg placement 08/25 * s/p trachesostomy 08/22 * s/p Permcath placement 08/22 removal Kurtis catheter * s/p right posterior chest tube 08/19-->removed 08/24 * s/p Right Arm PICC 08/26 * (Jovita Serrano): -->number provided to the nurse- ->consented for peg placement; discussed about LTAC 08/26 * Spoke with MARIAJOSE Figueroa regarding patient's hospitalization up until this point 08/2609/01/17: Dr. Cullen Barth spoke with the patient's [place] with the assistance of Nurse Campos on 3 tower (as multiple attempts of using MessageOned indicated that all of the Maur[place] translators were busy) and explained all of the patient's diagnosises. 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 Her ultimate wish is to take patient to [facility] where their children live. I explained to patient that I would not know how that would be coordinated but that the Social Workers/Marine Cargo Specialist at LTAC may be of assistance in this regard. I also informed her that I am not aware of any insurance company that would finance this request. She understands that the patient is awaiting insurance approval for LTAC. 09/01/17 and 09/02/17: Dr. Cullen Barth spoke with Janitorial Maintenance Worker Demetria and we are still awaiting insurance authorization for LTAC placement. 09/05/17: Spoke with nehal social media marketing manager, wean trials sent to LTAC pending approval no word yet regarding approval. Ordered for repeat cultures given uptrend in white count. 09/06/17: pending repeat cultures in light of elevated procalcitonin; ID recommended to reculture. Note: patients PICC lined had clogged ports. Red port remains clogged in spite of cath rafaela. Blue port improved after cath rafaela. Possible may need to remove line to r/o infected line. Strong suspicion due to patient's pneumonia given he has thick secretions. 09/07/17: Infectious disease. pending repeat cultures in light of elevated procalcitonin; Note: patients PICC lined had clogged ports. Red port remains clogged in spite of cath rafaela. Blue port improved after cath rafaela. Hip xray negative for acute fracture. There are no noted falls. 09/08/17: Patient denied for LTAC; awaiting for other options from case management/social work. Resident Daniel spoke with Dr. Cortés, patient be transferred under regular bed, when bed is available. Infectious disease on board; Patient started on IV Vancomycin in light of + blood culture. Pending chest xray. 09/09/17: Patient denied for LTAC; awaiting for other options from case management/social work with kamlesh verdin support. Patient started on IV Vancomycin MWF in light of + blood culture. Pending chest xray. F/U sputum with ID. f/u latest blood cultures. 09/13/17: Rapid response for low blood pressure and elevated WBC likely Septic Shock. Started on Levophed, added Meropenem to Vancomycin and 1 dose of Gentamycin given after speaking with ID. Ordered Obstruction Series as no bowel movement since 09/07/17. F/U Shock Panel. Discussed with ICU Resident to arrange for Change of Right Arm Midline line and Trach Collar. 09/14/17: Will await results of Blood Culture 09/13/17 to determine if the Right Arm Midline, Right Chest Perm Cath, and Trach Collar needs to be changed. Spoke with Janitorial Maintenance Worker Demetria in ICU and patient information has been sent to [facility] and [facility] (they accept patients on Trach) and she is awaiting to hear back from them before submitting approval request to insurance company. 09/15/17: Passy [place] Trach placed by Switchboard Mechanic. Surgical Team for debridement of Sacral Ulcer. Spoke with patient's ([place] Denisa [id number]) and explained/updated her on patient condition and obtained consent for sacral ulcer debridement. 09/16/17: Still awaiting performance of Sacral Bone Scan 09/17/17: Bone Scan performed and awaiting results 09/18/17: Awaiting Bone Scan Report 09/19/17: Still awaiting Bone Scan Report. Spoke again with Janitorial Maintenance Worker Demetria and NO word yet from [facility] or [facility] (they do treat patients with Trachs). 09/20/17: Repeat Wound culture and urine culture sent. Dressing changed with medihoney and optifoam. No other changes at this time. Still waiting for approval for [facility] 09/21/17: No changes at this time. Will continue to change wound dressing Q3D and follow up with case management for for fdc transfer. 09/22/17: Dressing changed today with medihoney. Healing appropriately. Talked to case management. Still no update from pen[facility]entiary transfer. Bone scan negative for osteo. Repeat wound cultures continue to grow Enterococcus. Will follow up sensitivities 09/26/17: Dialysis today. Dressing changed with optifoam and medihoney (nickel thick). VRE/germania in wound. Talked to case management. No updates at this time 09/27/17: dressing changed today with optifoam and medihoney (Nickel thick). Case management says no new information from [facility]. Will update as new information becomes available. 09/28/17: dressing changed today with optifoam and medihoney (Nickel thick). Case management says no new information from [facility]. Will update as new information becomes available. 3x3cm unstageable ulcer on R. heel present. Will talk to surgery for possible bedside debridment. 09/29/17:Talked to case management again today. No new information. Patient is tachycardiac and having blood tinged sputum in his trach collar. Will order a chest xray. 09/30/17: Talked to case management again today. No new information. went for dialysis yesterday due to excess fluid. Changed dressing at bedside today. 10/03/17: Dressing changed daily. Talked to ID on duration of Tigecycline, will evaluate wound. Surgery will also evaluate wound. Accepted at [facility]. Needs 2 days for authorization. Plan discharge on Tuesday10/04/17: Surgery saw and evaluated the wound today. They said no surgical intervention is needed. Talked to case management and still planning for discharge on Tuesday. Will follow up with ID on Tigecyline duration. 10/05/17: Patient lost approval for [facility]. Social work and case management is looking for a new penitentiary at the moment. Tigecycline has been discontinued per ID. No other updates at this time. 10/06/17: Patient had dressing changed today. Diflucan has been d/c today per ID. No other updates from has management 10/07/17: Patient had dressing change today. Will repeat wound cultures tomorrow. No other updates at this time. <Tadeo Stoll - Last Filed: 11/01/17 15:54> Objective - Vital Signs/Intake and Output Vital Signs (last 24 hours): Temp Pulse Resp BP Pulse Ox 98.6 F 122 H 34 H 117/38 L 98 11/01/17 12:00 11/01/17 12:00 11/01/17 12:00 11/01/17 11:00 11/01/17 12:00 Intake and Output: 11/01/17 11/01/17 06:59 18:59 Intake Total 1240 100 Output Total 180 Balance 1060 100 - Medications Medications: Current Medications Ascorbic Acid (Vitamin C 500 Mg Tab) 500 mg PEG DAILY [facility] Last Admin: 11/01/17 09:23 Dose: 500 mg Aspirin (Aspirin Chewable) 81 mg PO DAILY [facility] Last Admin: 11/01/17 09:23 Dose: 81 mg Calcitriol (Rocaltrol) 0.25 mcg PEG DAILY [facility] Last Admin: 11/01/17 09:45 Dose: 0.25 mcg Epoetin Chencho (Procrit) 10,000 unit IV MWF [facility] Last Admin: 10/31/17 11:58 Dose: 10,000 unit Micafungin Sodium 100 mg/ (Sodium Chloride) 100 mls @ 100 mls/hr IV Q24H [facility] Last Admin: 10/31/17 17:45 Dose: 100 mls/hr Meropenem 500 mg/ Sodium (Chloride) 100 mls @ 100 mls/hr IVPB Q8 [facility] Last Admin: 11/01/17 13:30 Dose: 100 mls/hr Insulin Aspart (Novolog) 0 unit SC Q6 [facility] PRN Reason: Protocol Last Admin: 11/01/17 12:31 Dose: 1 unit Insulin Detemir (Levemir) 35 unit SC Q12 [facility] Last Admin: 11/01/17 09:24 Dose: 35 unit Ipratropium [place] (Atrovent) 0.5 mg IH RQ6 [facility] Last Admin: 11/01/17 13:47 Dose: 0.5 mg Loperamide HCl (Imodium) 1 mg PO Q4H PRN PRN Reason: Diarrhea Last Admin: 10/30/17 09:54 Dose: 1 mg Metoprolol Tartrate (Lopressor) 25 mg PEG BIDBS [facility] Last Admin: 10/25/17 09:58 Dose: Not Given Metronidazole (Flagyl) 500 mg GT Q8 [facility] Last Admin: 11/01/17 13:29 Dose: 500 mg Midodrine (Proamatine) 10 mg PO TID [facility] Last Admin: 11/01/17 13:30 Dose: 10 mg Multivitamins (Hexavitamin) 1 tab PEG DAILY [facility] Ondansetron HCl (Zofran Inj) 4 mg IVP Q8H PRN PRN Reason: Nausea/Vomiting Pantoprazole Sodium (Protonix Inj) 40 mg IVP DAILY [facility] Last Admin: 11/01/17 09:22 Dose: 40 mg Rosuvastatin Calcium (Crestor) 10 mg PO HS [facility] Last Admin: 10/31/17 21:29 Dose: 10 mg Saccharomyces Boulardii (Florastor) 250 mg PO BID [facility] Last Admin: 11/01/17 09:23 Dose: 250 mg Vitamin A (Vitamin A & D Oint Ud Foilpak) 0.5 ea TOP Q1H PRN PRN Reason: Dry skin Last Admin: 11/01/17 09:23 Dose: 0.5 ea - Labs Labs: 11/01/17 06:37 11/01/17 06:37 PT 13.4 SECONDS (9.7-12.2) H 10/14/17 16:30 INR 1.2 10/14/17 16:30 APTT 28 SECONDS (21-34) 10/14/17 16:30 Attending/Attestation - Attestation I have personally seen and examined this patient.: Yes I have fully participated in the care of the patient.: Yes I have reviewed all pertinent clinical information, including history, physical exam and plan: Yes Notes (Text): complicated course after code now on HD decub wound hypotension poor prognosis
[2017-10-11] MEDS: Insulin Detemir 100 units/ml Vial (Levemir) SC SCH ×2 (10:41→21:21)
[2017-10-11] MEDS: Saccharomyces Boulardi 250 mg Cap PO SCH ×2 (10:42→17:49)
--- NOTE | 2017-10-11 12:09 | CP.PCM.PN ---
Subjective - Date & Time of Evaluation Date of Evaluation: 10/11/17 Time of Evaluation: 12:08 - Subjective Subjective: seen and examined trach. non verbal unable to obtain ros family at bedside denies any events Objective - Vital Signs/Intake and Output Vital Signs (last 24 hours): Temp Pulse Resp BP Pulse Ox 99.5 F 108 H 20 114/65 100 10/11/17 08:00 10/11/17 08:00 10/11/17 08:00 10/11/17 08:00 10/11/17 08:00 - Medications Medications: Current Medications Acetylcysteine (Acetylcysteine 20%) 4 ml INH RQ6 [facility] Last Admin: 10/11/17 07:36 Dose: 4 ml Albuterol/Ipratropium (Duoneb 3 Mg/0.5 Mg (3 Ml) Ud) 3 ml INH RQ6 [facility] Last Admin: 10/11/17 07:36 Dose: 3 ml Apixaban (Eliquis) 2.5 mg PO BID [facility] Last Admin: 10/11/17 10:42 Dose: 2.5 mg Aspirin (Aspirin Chewable) 81 mg PO DAILY [facility] Last Admin: 10/11/17 10:42 Dose: 81 mg Epoetin Chencho (Procrit) 10,000 unit IV MWF [facility] Last Admin: 10/10/17 09:49 Dose: 10,000 unit Famotidine (Pepcid) 20 mg PO DAILY [facility] Last Admin: 10/11/17 10:42 Dose: 20 mg Ferric Sodium Gluconate Complex (Ferrlecit) 125 mg IVPB DAILY@1600 [facility] Stop: 10/12/17 16:01 Last Admin: 10/10/17 16:41 Dose: Not Given Insulin Aspart (Novolog) 0 unit SC Q6 [facility] PRN Reason: Protocol Last Admin: 10/11/17 07:32 Dose: 4 unit Insulin Detemir (Levemir) 30 unit SC Q12 [facility] Last Admin: 10/11/17 10:41 Dose: 30 unit Metoprolol Tartrate (Lopressor) 50 mg PO BID [facility] Last Admin: 10/11/17 10:42 Dose: 50 mg Metronidazole (Flagyl) 500 mg PO Q8 [facility] Last Admin: 10/11/17 07:32 Dose: 500 mg Rosuvastatin Calcium (Crestor) 10 mg PO HS [facility] Last Admin: 10/10/17 21:27 Dose: 10 mg Saccharomyces Boulardii (Florastor) 250 mg PO BID [facility] Last Admin: 10/11/17 10:42 Dose: 250 mg - Labs Labs: 10/10/17 10:10 10/10/17 10:10 PT 13.9 SECONDS (9.7-12.2) H 08/24/17 06:08 INR 1.2 08/24/17 06:08 APTT 55 SECONDS (21-34) H D 08/17/17 06:12 - Constitutional Appears: Non-toxic, No Acute Distress, Chronically Ill - Head Exam Head Exam: NORMAL INSPECTION - Eye Exam Eye Exam: Normal appearance - ENT Exam ENT Exam: Mucous Membranes Dry (tracheostomy vent) - Respiratory Exam Respiratory Exam: Decreased Breath Sounds, NORMAL BREATHING PATTERN - Cardiovascular Exam Cardiovascular Exam: REGULAR RHYTHM, RRR - GI/Abdominal Exam GI & Abdominal Exam: Distended (peg), Soft - Extremities Exam Extremities Exam: Normal Inspection Assessment and Plan (1) Acute on chronic renal failure Status: Resolved (2) CHF (congestive heart failure) Status: Acute (3) History of DVT (deep vein thrombosis) Status: Acute (4) CAD (coronary artery disease) Status: Chronic (5) CKD (chronic kidney disease) Status: Chronic - Assessment and Plan (Free Text) Assessment: maintain hd 3/week ltac placement
[2017-10-11] MEDS: Ferric Sodium Gluconat Complex 62.5 mg/5 ml Vial IVPB SCH (17:48)
--- NOTE | 2017-10-11 18:31 | CP.PCM.PN ---
Subjective - Date & Time of Evaluation Date of Evaluation: 10/11/17 Time of Evaluation: 13:10 - Subjective Subjective: patient seen and evaluated No cardiac events patient comfortable Physical Examination - Constitutional Appears: Chronically Ill - Head Exam Head Exam: ATRAUMATIC, NORMAL INSPECTION, NORMOCEPHALIC - Eye Exam Eye Exam: EOMI Pupil Exam: NORMAL ACCOMODATION - ENT Exam ENT Exam: Mucous Membranes Moist - Neck Exam Additional comments: trach - Respiratory Exam Respiratory Exam: Clear to Ausculation Bilateral, NORMAL BREATHING PATTERN - Cardiovascular Exam Cardiovascular Exam: REGULAR RHYTHM - GI/Abdominal Exam GI & Abdominal Exam: Soft, Normal Bowel Sounds. absent: Distended, Tenderness - Extremities Exam Extremities Exam: absent: Joint Swelling, Tenderness - Back Exam Additional comments: 10x10 unstageable ulcer with healthy granulation tissue. No necrotic tissue. optifoam dressing with medihoney. Clear dry and intact - Neurological Exam Neurological Exam: Alert, Awake - Psychiatric Exam Psychiatric exam: Normal Affect, Normal Mood - Skin Skin Exam: Dry, Intact, Normal Color, Warm Objective - Vital Signs/Intake and Output Vital Signs (last 24 hours): Temp Pulse Resp BP Pulse Ox 98.8 F 101 H 22 142/57 L 97 10/11/17 15:15 10/11/17 15:15 10/11/17 15:15 10/11/17 15:15 10/11/17 15:15 - Medications Medications: Current Medications Acetylcysteine (Acetylcysteine 20%) 4 ml INH RQ6 [facility] Last Admin: 10/11/17 13:03 Dose: 4 ml Albuterol/Ipratropium (Duoneb 3 Mg/0.5 Mg (3 Ml) Ud) 3 ml INH RQ6 [facility] Last Admin: 10/11/17 13:03 Dose: 3 ml Apixaban (Eliquis) 2.5 mg PO BID [facility] Last Admin: 10/11/17 10:42 Dose: 2.5 mg Aspirin (Aspirin Chewable) 81 mg PO DAILY [facility] Last Admin: 10/11/17 10:42 Dose: 81 mg Epoetin [place] (Procrit) 10,000 unit IV MWF [facility] Last Admin: 10/10/17 09:49 Dose: 10,000 unit Famotidine (Pepcid) 20 mg PO DAILY [facility] Last Admin: 10/11/17 10:42 Dose: 20 mg Ferric Sodium Gluconate Complex (Ferrlecit) 125 mg IVPB DAILY@1600 [facility] Stop: 10/12/17 16:01 Last Admin: 10/11/17 17:48 Dose: 125 mg Insulin Aspart (Novolog) 0 unit SC Q6 [facility] PRN Reason: Protocol Last Admin: 10/11/17 17:57 Dose: 3 unit Insulin Detemir (Levemir) 30 unit SC Q12 [facility] Last Admin: 10/11/17 10:41 Dose: 30 unit Metoprolol Tartrate (Lopressor) 50 mg PO BID [facility] Last Admin: 10/11/17 17:58 Dose: 50 mg Rosuvastatin Calcium (Crestor) 10 mg PO HS [facility] Last Admin: 10/10/17 21:27 Dose: 10 mg Saccharomyces Boulardii (Florastor) 250 mg PO BID [facility] Last Admin: 10/11/17 17:49 Dose: 250 mg - Labs Labs: 10/10/17 10:10 10/10/17 10:10 PT 13.9 SECONDS (9.7-12.2) H 08/24/17 06:08 INR 1.2 08/24/17 06:08 APTT 55 SECONDS (21-34) H D 08/17/17 06:12 Assessment and Plan - Assessment and Plan (Free Text) Assessment: Assessment and Plan - Assessment and Plan (Free Text) Assessment: Atrial Fibrillation Intermittent Rate controlled. On Metoprolol 50 mg PO BID, Eliquis 2.5 mg PO BID CAD, chest pain -No current plans for cardiac cath (acute respiratory failure and elevated Cr) , history of abnormal stress test -Elevated Troponin likely due to chest compressions during cardiac arrest 08/10 -No acute ST changes on EKG -Continue ASA, Crestor, Metoprolol. -Echocardiogram from 08/08/17 showed left ventricle systolic function is severely impaired. EF: 25-30%; global hypokinesis of LV mild AR. MR is moderate. Moderate-severe pulmonary hypertension Systolic CHF exacerbation -CXR 09/09: Diminished bilateral basilar airspace disease; stable cardiomegaly -BNP [id number] on 08/06/17 -Continue ASA, Crestor, Metoprolol -Echocardiogram from 08/08/17 showed left ventricle systolic function is severely impaired. EF: 25-30%; global hypokinesis of LV mild AR. MR is moderate. Moderate-severe pulmonary hypertesnion Dobutamine discontinued in light of atrial flutter-type episodes Diabetes Mellitus ISS Continue to monitor ESRD on HD Currently on HD On Procrit and Scar Nephro on the case Prophylaxis Pepcid 20 mg PO daily Eliquis 2.5 mg PO BID (Renal precautions) Disposition Awaiting Transfer to LTAC
[2017-10-12] MEDS: (Novolog) Insulin Aspart, Recombinant 100 u/ml 10 ml vial SC SCH ×3 (00:31→13:27)
[2017-10-12] MEDS: Albuterol-Ipratrop 3 mg / 0.5 (3 ml) UD INH SCH ×4 (01:27→20:28)
[2017-10-12] MEDS: Acetylcysteine 20% Inhal Soln (4ml) INH SCH ×4 (01:27→20:28)
--- NOTE | 2017-10-12 07:22 | RAD ---
HISTORY: R/O PNA COMPARISON: Portable chest 10/02/2017. FINDINGS: Checks his tube, pacemaker/defibrillator, and tunneled right center venous dialysis catheter unchanged in position. Midline right PICC may have been withdrawn further into the right upper extremity. LUNGS: Limited linear atelectasis and patchy infiltrate seen at the inferomedial right lung zone with renal buchanan clear. PLEURA: No significant pleural effusion identified, no pneumothorax apparent. CARDIOVASCULAR: Somewhat prominent cardiac silhouette is unchanged. No pulmonary vascular derangement identified. OSSEOUS STRUCTURES: No significant abnormalities. VISUALIZED UPPER ABDOMEN: Normal. OTHER FINDINGS: None. IMPRESSION: Limited is linear atelectasis and patchy airspace disease seen the medial right base with remaining lung buchanan clear.
--- NOTE | 2017-10-12 07:39 | CP.PCM.PN ---
<Sina White - Last Filed: 10/12/17 14:50> Subjective - Date & Time of Evaluation Date of Evaluation: 10/12/17 Time of Evaluation: 07:38 - Subjective Subjective: Patient seen and examined at bedside. smiling, alert and awake ROS unattainable Objective - Vital Signs/Intake and Output Vital Signs (last 24 hours): Temp Pulse Resp BP Pulse Ox 97.4 F L 97 H 20 110/69 100 10/12/17 00:00 10/12/17 01:00 10/12/17 00:00 10/12/17 00:00 10/12/17 00:00 - Medications Medications: Current Medications Acetylcysteine (Acetylcysteine 20%) 4 ml INH RQ6 [facility] Last Admin: 10/12/17 07:18 Dose: 4 ml Albuterol/Ipratropium (Duoneb 3 Mg/0.5 Mg (3 Ml) Ud) 3 ml INH RQ6 [facility] Last Admin: 10/12/17 07:18 Dose: 3 ml Apixaban (Eliquis) 2.5 mg PO BID [facility] Last Admin: 10/11/17 10:42 Dose: 2.5 mg Aspirin (Aspirin Chewable) 81 mg PO DAILY [facility] Last Admin: 10/11/17 10:42 Dose: 81 mg Epoetin Chencho (Procrit) 10,000 unit IV MWF [facility] Last Admin: 10/10/17 09:49 Dose: 10,000 unit Famotidine (Pepcid) 20 mg PO DAILY [facility] Last Admin: 10/11/17 10:42 Dose: 20 mg Ferric Sodium Gluconate Complex (Ferrlecit) 125 mg IVPB DAILY@1600 [facility] Stop: 10/12/17 16:01 Last Admin: 10/11/17 17:48 Dose: 125 mg Insulin Aspart (Novolog) 0 unit SC Q6 [facility] PRN Reason: Protocol Last Admin: 10/12/17 05:53 Dose: 1 unit Insulin Detemir (Levemir) 30 unit SC Q12 [facility] Last Admin: 10/11/17 21:21 Dose: 30 unit Metoprolol Tartrate (Lopressor) 50 mg PO BID [facility] Last Admin: 10/11/17 17:58 Dose: 50 mg Rosuvastatin Calcium (Crestor) 10 mg PO HS [facility] Last Admin: 10/11/17 21:20 Dose: 10 mg Saccharomyces Boulardii (Florastor) 250 mg PO BID [facility] Last Admin: 10/11/17 17:49 Dose: 250 mg - Labs Labs: 10/10/17 10:10 10/10/17 10:10 PT 13.9 SECONDS (9.7-12.2) H 08/24/17 06:08 INR 1.2 08/24/17 06:08 APTT 55 SECONDS (21-34) H D 08/17/17 06:12 - Additional Findings Additional findings: - Constitutional Appears: Well, No Acute Distress - Head Exam Head Exam: ATRAUMATIC, NORMOCEPHALIC - Eye Exam Eye Exam: EOMI - ENT Exam ENT Exam: Mucous Membranes Moist - Neck Exam Additional comments: Trach Collar - Respiratory Exam Respiratory Exam: Clear to Ausculation Bilateral - Cardiovascular Exam Cardiovascular Exam: REGULAR RHYTHM, +S1, +S2 - GI/Abdominal Exam GI & Abdominal Exam: Soft, Normal Bowel Sounds. absent: Distended, Tenderness - Back Exam Additional comments: 10cm x 10cm unstageable ulcer with healthy granulation tissue. No necrotic tissue. Optifoam dressing with medihoney. - Neurological Exam Neurological Exam: Alert, Awake - Psychiatric Exam Psychiatric exam: Normal Affect, Normal Mood Assessment and Plan - Assessment and Plan (Free Text) Assessment: ARDS, Cardiac Arrest, Pulmonary Edema, NSTEMI * Code Blue on 08/10: asystole, ROSC achieved. * Pulm (Rajesh) * Cards (Moo) * ASA 81 PO QD * Eliquis 2.5 PO BID * GI (Johann) * Tracheostomy 08/22 * Peg tube 08/25 Atrial flutter * Cards (Moo) * Eliquis 2.5mg PO bid Acute on Chronic Systolic CHF exacerbation * Cards (Moo) * Echocardiogram (08/08/17) EF: 25-30% * Medications: * Aspirin 81mg PO daily * Lopressor 50mg PO bid * Crestor 10mg POqHS Pneumonia * ID (Melinda) * Increased wbc with blood on trach collar * CXR 10/12/17 shows infiltrate * Consider HAP * Cipro 200 IV Q12 * Cefepime 1 IV QD * F/U Sputum Culture HTN * Lopressor 50mg PO bid * Lisinopril 5mg PO daily CKD * Nephro (Ruben) * Dialysis MWF * Permacath * Phoslo 1334mg GT TID * Epoetin 10,000 unit IV MWF Diabetes mellitus * Accuchecks Q6H * HgbA1c 8.4 * Regular 5 units AC * Levemir 8 units [facility] HLD * Crestor 10 mg PO HS Anemia * Heme(Horseheads) * Ferric Sodium Gluconate 125mg IVPB * Procrit 10,000 units M-W-F History of DVT * Eliquis 2.5mg PO BID Sacral Ulcer * Sacral ulcer * wound culture 10/12/17 - Enterobacter aerogenes * Cefepime 1 IV QD * Wound care * Turn q 2 hours * medihoney on unstageable ulcer * Prevalon Boots for Right Heal Blister * Surgery says continue current management Hx CAD * Cards (Moo) * Echocardiogram (08/08/17) EF: 25-30% * Medications: * Aspirin 81mg PO daily * Lopressor 50mg PO bid * Crestor 10mg PO Prophylactic measure * Pepcid 20mg PO daily <Mariangel Lazar V - Last Filed: 10/12/17 16:35> Objective - Vital Signs/Intake and Output Vital Signs (last 24 hours): Temp Pulse Resp BP Pulse Ox 98.5 F 92 H 18 124/45 L 98 10/12/17 14:15 10/12/17 14:15 10/12/17 07:43 10/12/17 14:15 10/12/17 07:43 Intake and Output: 10/12/17 10/12/17 06:59 18:59 Intake Total 550 Balance 550 - Medications Medications: Current Medications Acetylcysteine (Acetylcysteine 20%) 4 ml INH RQ6 [facility] Last Admin: 10/12/17 13:07 Dose: 4 ml Albuterol/Ipratropium (Duoneb 3 Mg/0.5 Mg (3 Ml) Ud) 3 ml INH RQ6 [facility] Last Admin: 10/12/17 13:07 Dose: 3 ml Apixaban (Eliquis) 2.5 mg PO BID [facility] Last Admin: 10/12/17 09:46 Dose: 2.5 mg Aspirin (Aspirin Chewable) 81 mg PO DAILY [facility] Last Admin: 10/12/17 09:45 Dose: 81 mg Epoetin Chencho (Procrit) 10,000 unit IV MWF [facility] Last Admin: 10/10/17 09:49 Dose: 10,000 unit Famotidine (Pepcid) 20 mg PO DAILY [facility] Last Admin: 10/12/17 09:46 Dose: 20 mg Cefepime HCl 1 gm/ Dextrose 50 mls @ 100 mls/hr IVPB Q24H [facility] Last Admin: 10/12/17 09:00 Dose: 100 mls/hr Ciprofloxacin (Cipro 200mg/100ml D5w) 100 mls @ 67 mls/hr IVPB Q12H [facility] Last Admin: 10/12/17 09:45 Dose: 67 mls/hr Insulin Detemir (Levemir) 8 unit SC AMHS [facility] Insulin Human Regular (Novolin R) 5 unit SC AC [facility] Lisinopril (Zestril) 5 mg PO DAILY [facility] Last Admin: 10/12/17 11:30 Dose: Not Given Metoprolol Tartrate (Lopressor) 50 mg PO BID [facility] Last Admin: 10/12/17 11:30 Dose: Not Given Rosuvastatin Calcium (Crestor) 10 mg PO HS [facility] Last Admin: 10/11/17 21:20 Dose: 10 mg Saccharomyces Boulardii (Florastor) 250 mg PO BID [facility] Last Admin: 10/12/17 09:46 Dose: 250 mg - Labs Labs: 10/12/17 08:58 10/12/17 08:58 PT 13.9 SECONDS (9.7-12.2) H 08/24/17 06:08 INR 1.2 08/24/17 06:08 APTT 55 SECONDS (21-34) H D 08/17/17 06:12 Attending/Attestation - Attestation I have personally seen and examined this patient.: Yes I have fully participated in the care of the patient.: Yes I have reviewed all pertinent clinical information, including history, physical exam and plan: Yes Notes (Text): Patient seen, examined, and case discussed with day-time resident. Patient is awake and alert, will follow basic directions such as moving arms. Patient is not speaking. Patient does have audible congestion on exam. Patient is due for dialysis today ; Will repeat chest xray following dialysis. Patient's procalcitonin is elevated: 4.90. Patient restarted on Cefepime IV and Ciprofloxocin IV to cover for hospital acquired pneumonia. Afebrile. Leukocytosis Repeat sacral wound (10/10): enterobacter sensitive to Cefepime IV and Cipro IV. Assessment and plan updated with clarifications noted in my note. Assessment/Plan (1) Acute Respiratory Failure ARDS Cardiac Arrest Pulmonary Edema Nonstemi Assessment and Plan: * Code Blue on 08/10: asystole, cardiopulmonary resuscitative measures initiated , requiring 3 epis, bicarbonate, ROSC achieved and intubated and brought to the ICU for further management; Patient in the ICU from 08/10 until present. * Pulmonary: Dr Mena (Dr. Jeffers covering until 09/04/17)-->help appreciated * Cardiology: Dr. Cortés on board-->help appreciated * GI (Dr. Wills) on board-->help appreciated * S/P Tracheostomy 08/22 * S/P Peg tube placement 08/25 * s/p insertion of right posterior chest tube 08/19-->removed 08/24/17 * Passy Flex Trach placed 09/15 * There was consideration for possible thoracentesis of left side pleural effusion, evaluated by IR, there is no fluid to drain per Dr. Gross * Chest xray (08/26): right arm PICC is seen with the tip of distal subclavian vein. PICC may be used * Chest Xray (09/20/17): lines and tubes stable position, left-sided pacemaker, moderate venous congestion, left basilar opacity with associated small left pleural effusion, Cardiomegaly. Prominent aorta, degenrative changes in spine and shoulders * Medications: * Acetylcysteine 20% 4ml INH RQ6H * Duoneb 3ml INH RQ6H * Aspirin 81mg PO daily * Eliquis 2.5mg PO bid * Lopressor 50mg PO bid * 10/03: pulmonary note: reports attempt at decannulation; will follow-up (2) Abnormal Stress Test History of AICD History of Coronary Artery Disease Assessment and Plan: * Cardiology (Dr. Cortés) on board-->help appreciated * TSH: 1.16; T4: 1.53 * Echocardiogram (08/08/17): left ventricle systolic function is severely impaired. EF: 25-30%; global hypokinesis of left ventricle mild aortic regurgitation. Mitral regurgitation is moderate. Moderate-severe pulmonary hypertension * Plan was for cardiac catheterization; delayed due to acute renal failure; Attempted gentle hydration and mucomyst on 08/09 to optimize prior to cath * On 08/10, patient was in asystole, ACLS protocol, ROSC achieved, intubated and transfered to the ICU. Patient in acute pulmonary edema. * Patient hospitalized and require to and from ICU twice during this admission * Cardiac cath postponed at this time * Medications: * Acetylcysteine 20% 4ml INH RQ6H * Duoneb 3ml INH RQ6H * Aspirin 81mg PO daily * Eliquis 2.5mg PO bid * Lopressor 50mg PO bid * Crestor 10mg POqHS * Lisinopril 5mg PO daily (3) Atrial flutter Assessment and Plan: * Cardiology (Dr. Cortés) on board-->help appreciated * Refractory to Lopressor/Cardizem IVP * c/w Eliquis 2.5mg PO bid * c/w Lopressor 50mg PO bid Status: Resolved (4) Acute on Chronic Systolic CHF exacerbation Assessment and Plan: * Cardiology (Dr. Cortés) on board-->help appreciated * Transferred to the ICU on 08/10 following cardiac arrest and intubation. * Echocardiogram (08/08/17): left ventricular systolic function is severely impaired. EF: 25-30%; global hypokinesis of left ventricle mild aortic regurgitation. Mitral regurgitation is moderate. Moderate-severe pulmonary hypertension * Medications: * Aspirin 81mg PO daily * Lopressor 50mg PO bid * Lisinopril 5mg PO daily * Crestor 10mg POqHS Status: Stable (5) Leukocytosis Assessment and Plan: * Pleural Fluid 08/19/17 did not show any growth * Blood cultures (09/13): no growth X5 days X2 * Blood cultures (09/07) during dialysis: no growth X5 days X2 * UA and urine culture (08/27): Yeast Species. * UA and urine culture (09/13): Yeast Species. 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 * Sacral Ulcer (09/15/17): VRE and Reny Albicans * Sacral Ulcer (09/20/17): VRE and Reny Albicans * Sacral Ulcer (09/30/17): Enterobacter Aerogenes-->Sensitive Cefepime IV * Bone Scan performed 09/17/17 to check for Osteomyelitis at the Sacrum: negative for osteomyelitis * c/w Tigecycline (09/16/17): which will cover the VRE in Sacral Wound Culture 09/14/17 and repeat on 09/20/17--to finish today 10/05/17 * c/w Diflucan 200 mg PO 1x/day (09/13/17; Day 20): which will cover with Yeast in the Sputum, Urine, and Sacral Wound Culture-->stopped on 10/06/17 * Procalcitionin: 8.60 (09/06/17)-->5.80 (09/20)-->2.86 (10/04)--->4.91 (10/12) * Patient started on Cefepime 1 gram IV Q24H and Ciprofloxacin 200mg IV Q12H ( active 10/12/17) Status: Acute (6) Pneumonia Assessment and Plan: * Pulmonary (Dr. Mena) on board-->help appreciated * Infectious Disease (Dr. Lawrence)-->help appreciated * Chest xray (08/26): right arm PICC is seen with the tip of distal subclavian vein. PICC may be used * Rapid A strep, Influenza A and B studies, Urine Legionella, Mycoplasma studies = Negative * Florastor 250mg PO bid * 08/07/17: +Strep Pneumoniae in the urine * Meropenem 500mg IV Q 8 hours (08/14/17 through 08/18/17) and Zosyn 2.25 mg IV Q6H (08/13/17 through 08/18/17) * Cefepime 1 gm IV Q24H: started on 08/19/17 and was discontinued by STEPHEN Lawrence on 08/30/17: monitor vitals and labs * s/p right posterior chest tube 08/19-08/24 * Sputum Culture 08/19/17 shows No growth * Pleural fluid 08/19/17: No growth * 09/07/17 Sputum: Enterocloace Bacter and Yeast Species: See Antibiotic treatment in previous Assessment and Plan * Sputum 09/10/17 shows NO AFB * Procalcitionin: 8.60 (09/06/17)-->5.80 (09/20)-->2.86 (10/04)--->4.91 (10/12) * Patient started on Cefepime 1 gram IV Q24H and Ciprofloxacin 200mg IV Q12H ( active 10/12/17) * Will repeat chest xray post-dialysis Status: Acute (7) HTN (hypertension) Assessment and Plan: * Lopressor 50mg PO bid * Lisinopril 5mg PO daily Status: Chronic (8) CKD (chronic kidney disease) on Dialysis Assessment and Plan: * Dr. Miranda (nephrology) consulted on the case * Hx of CKD-->Started on dialysis 08/15/17 * Kurtis catheter placed and removed 08/22 * s/p Right Chest Permcath 08/22 * Patient is on dialysis ; oliguric * Phoslo 1334mg GT TID * Epoetin 10,000 unit IV MWF Status: Chonic (9) Diabetes mellitus Assessment and Plan: * Accuchecks Q6H * HgbA1c 8.4 * Started peg feedings on 08/26/17 * Levemir 8 unit AM and HS * Novolin R 5 unit AC (10) HLD (hyperlipidemia) Assessment and Plan: * LFTS have normalized; will restart statin 09/20/17 * Crestor 10mg POqHS Status: Chronic (11) Anemia Assessment and Plan: * Heme-oncology (Dr. Giles bender) on board-->help appreciated * Likely iron deficiency anemia based on prior admissions * Ferritin 27.4, Iron 22, TIBC 322, % Saturation 7 * Ferric Sodium Gluconate 125mg IVPB daily (active 08/08-08/16) * Procrit 10,000 units - * Monitor Hgb/Hct: stable Status: Chronic (12) History of DVT (deep vein thrombosis) Assessment and Plan: * Patient was previously on Eliquis for a prior history of DVT. * Repeat dopplers 08/09/17 are negative for DVT * Off Heparin Drip 08/17/17 * Started Eliquis 2.5mg PO BID for atrial flutter and history of DVT Status: Chronic (13) UTI Assessment and Plan: * Infectious disease (Dr. Lawrence) on board-->help appreciated * Exchange jaquez out and repeat urine cultures * Urine Culture 08/12/17 showed Gram Negative Rods: NO identification and NO sensitivities were performed * Meropenem 500mg IV Q 12hours (active since 08/14/17 through 08/18/17) to cover for UTI per ID * Repeat Urine Culture 08/18/17 shows NO growth * 08/25: reculture in light of leukocytosis * 08/27: pending urine studies * 08/30: Urine Culture 08/27/17 showed Yeast Species but no antifungal at that time secondary to recent history of Elevated LFTs * Urine Culture 09/13/17 showed Yeast Species: completed Diflucan on 10/06/17 * Urine culture (10/06/17): No growth Status: Chronic (14) Confusion; Alzheimer's Dementia Assessment and Plan: * Per daughter, patient has been getting bouts of confusion over the past year but appears at baseline. Patient has not seen formal neurology as outpatient per daughter. Per , prior to event, noted Alzheimers' disease dx one year ago * CT head w/o contrast (08/10/17):acute os subacute lacune infarct is not excluded in the left basal ganglia inferiorly with definitive chronic lacune identified in the right basal ganglia superiorly. No acute or subacute lobar brain infarction is appreciable by standard CT criteria. Mild age-related neuro degenerative changes are identifed. No acute intracranial hemorrhage or mass is identified throughout * 08/26: Off Sedation-->patient moves all extremities randomly but does not follow directions * 08/27: off sedation-->patient is very calm, smiles at his * 08/28: off sedation-->patient is very calm Status: Chronic (15) Unstageable Sacral Ulcer, Left Ear Auricle Ulcer, Right Heal Ulcer Assessment and Plan: * Wound care on board * WOUND CARE [id number] patients sacral ulcer. Base softening up. Must continue medi-honey (nickel thick) then cover with a bordered dressing to be done daily. Patient must be repositioned frequently to optimize offloading of sacral region. Right heel is dark purple in color. Must continue to elevate both heels at all times to optimize heel offloading. Hemoglobin-9.6, Marshal of 14. Patient continues to be at risk for skin breakdown. will continue to follow. 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 * Sacral Ulcer (09/15/17): VRE and Reny Albicans * Sacral Ulcer (09/20/17): VRE and Reny Albicans * Sacral Ulcer (09/30/17): Enterobacter Aerogenes-->Sensitive Cefepime IV * Bone Scan performed 09/17/17 to check for Osteomyelitis at the Sacrum: negative for osteomyeliti * Daily wound care and dressing change by medicine team; healing appropriately Antibiotics * c/w Tigecycline (09/16/17: which will cover the VRE in Sacral Wound Culture and repeat on 09/20/17-->PER ID, d/c 10/15/17 * c/w Diflucan 200 mg PO 1x/day (09/13/17; Day 20): which will cover with Yeast in the Sputum, Urine, and Sacral Wound Culture--> PER ID, D/c 10/06/17 * Procalcitionin: 8.60 (09/06/17)-->5.80 (09/20)-->2.86 (10/04)--->4.91 (10/12) * Patient started on Cefepime 1 gram IV Q24H and Ciprofloxacin 200mg IV Q12H ( active 10/12/17) Status: Acute (16) Elevated LFTs Assessment and Plan: * Have normalized * Currently off Diflucan since 10/06/17 * Crestor 10mg POqHS (17). Hx Constipation * Monitor bowel movement (18). Hyponatremia-->resolved (19). Prophylactic measure Assessment and Plan: * Pepcid 20mg PO daily * Start Eliquis 2.5mg PO BID * s/p peg placement 08/25 * s/p trachesostomy 08/22 * s/p Permcath placement 08/22 removal Kurtis catheter * s/p right posterior chest tube 08/19-->removed 08/24 * s/p Right Arm PICC 08/26 * Passy Flex Trach placed 09/15 * (Jovita Serrano): -->number provided to the nurse- ->consented for peg placement; discussed about LTAC 08/26 * Spoke with Dr. Pickard, MARIAJOSE regarding patient's hospitalization up until 08/26 Disposition: * Awaiting from case management in regards to discharge to subacute rehab---> will need to restart process to secure dialysis placement * patient's procalcitonin is elevated, leukocytosis, afebrile; sacral wound culture is sensitive Cefepime IV. Patient started on Cefepime and Cipro IV. * Will need to f/u with pulm regarding when patient can be decannulated * [facility]
[2017-10-12 09:08] LABS: BASO # 0.1 K/uL (0.0-0.2); BASO % 0.3 % (0.0-2.0); EOS # 0.3 K/uL (0.0-0.7); EOS % 1.5 % (0.0-4.0); HEMATOCRIT 28.2 % (35.0-51.0); LYMPH % 16.2 % (20.0-40.0); MEAN CORPUSCULAR HEMOGLOBIN 25.9 pg (27.0-31.0); MEAN CORPUSCULAR HGB CONC 30.9 g/dL (33.0-37.0); MEAN PLATELET VOLUME 8.3 fL (7.2-11.7); MONO # 1.1 K/uL (0.0-0.8); MONO % 5.8 % (0.0-10.0); NRBC % 0.1 % (0.0-2.0); RED CELL DISTRIBUTION WIDTH 25.1 % (11.5-14.5); WHITE BLOOD COUNT 18.4 K/uL (4.8-10.8)
[2017-10-12 09:38] LABS: ALB/GLOB RATIO 0.6 (1.0-2.1); BILIRUBIN,TOTAL 0.4 mg/dL (0.2-1.3); CALCIUM 9.1 mg/dl (8.6-10.4); PHOSPHOROUS 2.6 mg/dL (2.5-4.5); POTASSIUM 3.8 mmol/L (3.6-5.2); TOTAL PROTEIN 7.2 g/dL (6.3-8.3)
[2017-10-12] MEDS: Ciprofloxacin 200mg/100ml D5W 100 ML IVPB SCH ×2 (09:45→21:47)
[2017-10-12] MEDS: Insulin Detemir 100 units/ml Vial (Levemir) SC SCH ×2 (09:46→21:46)
[2017-10-12] MEDS: Saccharomyces Boulardi 250 mg Cap PO SCH ×2 (09:46→18:40)
--- NOTE | 2017-10-12 13:59 | CP.PCM.PN ---
Subjective - Date & Time of Evaluation Date of Evaluation: 10/12/17 Time of Evaluation: 13:56 - Subjective Subjective: Alert; waiting for dialysis now Still nonverbal trach collar in place no new events noted; no new complaints noted Objective - Vital Signs/Intake and Output Vital Signs (last 24 hours): Temp Pulse Resp BP Pulse Ox 98.3 F 108 H 18 99/55 L 98 10/12/17 07:43 10/12/17 08:00 10/12/17 07:43 10/12/17 07:43 10/12/17 07:43 - Medications Medications: Current Medications Acetylcysteine (Acetylcysteine 20%) 4 ml INH RQ6 [facility] Last Admin: 10/12/17 13:07 Dose: 4 ml Albuterol/Ipratropium (Duoneb 3 Mg/0.5 Mg (3 Ml) Ud) 3 ml INH RQ6 [facility] Last Admin: 10/12/17 13:07 Dose: 3 ml Apixaban (Eliquis) 2.5 mg PO BID [facility] Last Admin: 10/12/17 09:46 Dose: 2.5 mg Aspirin (Aspirin Chewable) 81 mg PO DAILY [facility] Last Admin: 10/12/17 09:45 Dose: 81 mg Epoetin Chencho (Procrit) 10,000 unit IV MWF [facility] Last Admin: 10/10/17 09:49 Dose: 10,000 unit Famotidine (Pepcid) 20 mg PO DAILY [facility] Last Admin: 10/12/17 09:46 Dose: 20 mg Ferric Sodium Gluconate Complex (Ferrlecit) 125 mg IVPB DAILY@1600 [facility] Stop: 10/12/17 16:01 Last Admin: 10/11/17 17:48 Dose: 125 mg Cefepime HCl 1 gm/ Dextrose 50 mls @ 100 mls/hr IVPB Q24H [facility] Last Admin: 10/12/17 09:00 Dose: 100 mls/hr Ciprofloxacin (Cipro 200mg/100ml D5w) 100 mls @ 67 mls/hr IVPB Q12H [facility] Last Admin: 10/12/17 09:45 Dose: 67 mls/hr Insulin Aspart (Novolog) 0 unit SC Q6 [facility] PRN Reason: Protocol Last Admin: 10/12/17 13:27 Dose: 2 unit Insulin Detemir (Levemir) 30 unit SC Q12 [facility] Last Admin: 10/12/17 09:46 Dose: 30 unit Lisinopril (Zestril) 5 mg PO DAILY [facility] Last Admin: 10/12/17 11:30 Dose: Not Given Metoprolol Tartrate (Lopressor) 50 mg PO BID [facility] Last Admin: 10/12/17 11:30 Dose: Not Given Rosuvastatin Calcium (Crestor) 10 mg PO HS [facility] Last Admin: 10/11/17 21:20 Dose: 10 mg Saccharomyces Boulardii (Florastor) 250 mg PO BID [facility] Last Admin: 10/12/17 09:46 Dose: 250 mg - Labs Labs: 10/12/17 08:58 10/12/17 08:58 PT 13.9 SECONDS (9.7-12.2) H 08/24/17 06:08 INR 1.2 08/24/17 06:08 APTT 55 SECONDS (21-34) H D 08/17/17 06:12 - Constitutional Appears: No Acute Distress, Chronically Ill - Head Exam Head Exam: ATRAUMATIC, NORMAL INSPECTION - Eye Exam Eye Exam: EOMI, Normal appearance - Neck Exam Neck Exam: Normal Inspection. absent: Tenderness - Respiratory Exam Respiratory Exam: Clear to Ausculation Bilateral, NORMAL BREATHING PATTERN - Cardiovascular Exam Cardiovascular Exam: Irregular Rhythm, +S1 - GI/Abdominal Exam GI & Abdominal Exam: Soft. absent: Tenderness - Extremities Exam Extremities Exam: Normal Inspection. absent: Tenderness - Neurological Exam Neurological Exam: Alert, CN II-XII Intact - Skin Skin Exam: Dry, Warm Assessment and Plan (1) Acute on chronic renal failure Status: Resolved (2) CAD (coronary artery disease) Status: Chronic (3) CHF exacerbation Status: Chronic (4) Type 2 diabetes mellitus with diabetic nephropathy Status: Acute (5) Cardiorenal disease Status: Acute (6) ESRD (end stage renal disease) Status: Acute - Assessment and Plan (Free Text) Plan: Same meds Dialysis MWF Await outpt dialysis placement
[2017-10-12] MEDS: Epoetin Alfa 10,000 unit/ml Dialysis IV SCH (17:41)
[2017-10-12] MEDS ORDERED: Ferric Sodium Gluconat Complex 62.5 mg/5 ml Vial IVPB ONE (17:45)
[2017-10-12] MEDS: (Novolin R) Insulin Human Regular 100 units/ml vial SC SCH (18:34)
[2017-10-12] MEDS: Ferric Sodium Gluconat Complex 62.5 mg/5 ml Vial IVPB SCH (18:41)
--- NOTE | 2017-10-12 23:47 | CP.PCM.PN ---
Subjective - Date & Time of Evaluation Date of Evaluation: 10/12/17 Time of Evaluation: 18:15 - Subjective Subjective: Patient seen and evaluated Not in distress Comfortable Physical Examination - Constitutional Appears: Chronically Ill - Head Exam Head Exam: ATRAUMATIC, NORMAL INSPECTION, NORMOCEPHALIC - Eye Exam Eye Exam: EOMI Pupil Exam: NORMAL ACCOMODATION - ENT Exam ENT Exam: Mucous Membranes Moist - Neck Exam Additional comments: trach - Respiratory Exam Respiratory Exam: Clear to Ausculation Bilateral, NORMAL BREATHING PATTERN - Cardiovascular Exam Cardiovascular Exam: REGULAR RHYTHM - GI/Abdominal Exam GI & Abdominal Exam: Soft, Normal Bowel Sounds. absent: Distended, Tenderness - Extremities Exam Extremities Exam: absent: Joint Swelling, Tenderness - Back Exam Additional comments: 10x10 unstageable ulcer with healthy granulation tissue. No necrotic tissue. optifoam dressing with medihoney. Clear dry and intact - Neurological Exam Neurological Exam: Alert, Awake - Psychiatric Exam Psychiatric exam: Normal Affect, Normal Mood - Skin Skin Exam: Dry, Intact, Normal Color, Warm Objective - Vital Signs/Intake and Output Vital Signs (last 24 hours): Temp Pulse Resp BP Pulse Ox 97.8 F 95 H 20 108/50 L 98 10/12/17 18:30 10/12/17 18:30 10/12/17 18:30 10/12/17 18:30 10/12/17 18:30 Intake and Output: 10/12/17 10/13/17 18:59 06:59 Intake Total 550 Balance 550 - Medications Medications: Current Medications Acetylcysteine (Acetylcysteine 20%) 4 ml INH RQ6 [facility] Last Admin: 10/12/17 20:28 Dose: 4 ml Albuterol/Ipratropium (Duoneb 3 Mg/0.5 Mg (3 Ml) Ud) 3 ml INH RQ6 [facility] Last Admin: 10/12/17 20:28 Dose: 3 ml Apixaban (Eliquis) 2.5 mg PO BID [facility] Last Admin: 10/12/17 18:40 Dose: 2.5 mg Aspirin (Aspirin Chewable) 81 mg PO DAILY [facility] Last Admin: 10/12/17 09:45 Dose: 81 mg Epoetin Chencho (Procrit) 10,000 unit IV MWF [facility] Last Admin: 10/12/17 17:41 Dose: 10,000 unit Famotidine (Pepcid) 20 mg PO DAILY [facility] Last Admin: 10/12/17 09:46 Dose: 20 mg Cefepime HCl 1 gm/ Dextrose 50 mls @ 100 mls/hr IVPB Q24H [facility] Last Admin: 10/12/17 09:00 Dose: 100 mls/hr Ciprofloxacin (Cipro 200mg/100ml D5w) 100 mls @ 67 mls/hr IVPB Q12H [facility] Last Admin: 10/12/17 21:47 Dose: 67 mls/hr Insulin Detemir (Levemir) 8 unit SC AMHS [facility] Last Admin: 10/12/17 21:46 Dose: 8 unit Insulin Human Regular (Novolin R) 5 unit SC AC [facility] Last Admin: 10/12/17 18:34 Dose: Not Given Lisinopril (Zestril) 5 mg PO DAILY [facility] Last Admin: 10/12/17 11:30 Dose: Not Given Metoprolol Tartrate (Lopressor) 50 mg PO BID [facility] Last Admin: 10/12/17 18:40 Dose: 50 mg Rosuvastatin Calcium (Crestor) 10 mg PO HS [facility] Last Admin: 10/12/17 21:47 Dose: 10 mg Saccharomyces Boulardii (Florastor) 250 mg PO BID [facility] Last Admin: 10/12/17 18:40 Dose: 250 mg - Labs Labs: 10/12/17 08:58 10/12/17 08:58 PT 13.9 SECONDS (9.7-12.2) H 08/24/17 06:08 INR 1.2 08/24/17 06:08 APTT 55 SECONDS (21-34) H D 08/17/17 06:12 Assessment and Plan - Assessment and Plan (Free Text) Assessment: Assessment and Plan - Assessment and Plan (Free Text) Assessment: Atrial Fibrillation Intermittent Rate controlled. On Metoprolol 50 mg PO BID, Eliquis 2.5 mg PO BID CAD, chest pain -No current plans for cardiac cath (acute respiratory failure and elevated Cr) , history of abnormal stress test -Elevated Troponin likely due to chest compressions during cardiac arrest 08/10 -No acute ST changes on EKG -Continue ASA, Crestor, Metoprolol. -Echocardiogram from 08/08/17 showed left ventricle systolic function is severely impaired. EF: 25-30%; global hypokinesis of LV mild AR. MR is moderate. Moderate-severe pulmonary hypertension Systolic CHF exacerbation -CXR 09/09: Diminished bilateral basilar airspace disease; stable cardiomegaly -BNP [id number] on 08/06/17 -Continue ASA, Crestor, Metoprolol -Echocardiogram from 08/08/17 showed left ventricle systolic function is severely impaired. EF: 25-30%; global hypokinesis of LV mild AR. MR is moderate. Moderate-severe pulmonary hypertesnion Dobutamine discontinued in light of atrial flutter-type episodes Diabetes Mellitus ISS Continue to monitor ESRD on HD Currently on HD On Procrit and Phoslo Nephro on the case Prophylaxis Pepcid 20 mg PO daily Eliquis 2.5 mg PO BID (Renal precautions) Disposition Awaiting Transfer to [facility]
[2017-10-13] MEDS: Albuterol-Ipratrop 3 mg / 0.5 (3 ml) UD INH SCH ×3 (01:31→13:06)
[2017-10-13] MEDS: Acetylcysteine 20% Inhal Soln (4ml) INH SCH ×4 (01:31→19:51)
[2017-10-13 07:42] LABS: BASO # 0.1 K/uL (0.0-0.2); BASO % 0.4 % (0.0-2.0); EOS # 0.4 K/uL (0.0-0.7); HEMATOCRIT 28.1 % (35.0-51.0); LYMPH # 2.3 K/uL (1.0-4.3); LYMPH % 11.2 % (20.0-40.0); MEAN CELL VOLUME 83.8 fL (80.0-94.0); MEAN CORPUSCULAR HEMOGLOBIN 26.3 pg (27.0-31.0); MEAN CORPUSCULAR HGB CONC 31.3 g/dL (33.0-37.0); MEAN PLATELET VOLUME 8.1 fL (7.2-11.7); MONO # 1.2 K/uL (0.0-0.8); MONO % 5.9 % (0.0-10.0); NRBC % 0.6 % (0.0-2.0); RED CELL DISTRIBUTION WIDTH 24.8 % (11.5-14.5); WHITE BLOOD COUNT 20.8 K/uL (4.8-10.8)
[2017-10-13 08:01] LABS: ALB/GLOB RATIO 0.8 (1.0-2.1); BILIRUBIN,TOTAL 0.7 mg/dL (0.2-1.3); CALCIUM 8.2 mg/dl (8.6-10.4); MAGNESIUM 2.4 mg/dL (1.6-2.3); PHOSPHOROUS 1.5 mg/dL (2.5-4.5); POTASSIUM 3.6 mmol/L (3.6-5.2); TOTAL PROTEIN 6.6 g/dL (6.3-8.3)
[2017-10-13] MEDS: (Novolin R) Insulin Human Regular 100 units/ml vial SC SCH ×3 (08:53→17:46)
[2017-10-13] MEDS: Ciprofloxacin 200mg/100ml D5W 100 ML IVPB SCH ×2 (09:43→21:48)
[2017-10-13] MEDS ORDERED: Insulin Detemir 100 units/ml Vial (Levemir) SC SCH (10:00)
[2017-10-13] MEDS: Insulin Detemir 100 units/ml Vial (Levemir) SC SCH ×2 (10:03→21:49)
[2017-10-13] MEDS: Saccharomyces Boulardi 250 mg Cap PO SCH ×2 (10:04→17:40)
--- NOTE | 2017-10-13 10:24 | CP.PCM.PN ---
Subjective - Date & Time of Evaluation Date of Evaluation: 10/13/17 Time of Evaluation: 10:21 - Subjective Subjective: Alert; appears same on trach collar stable dialysis 10/12- UF 1500ml stable dialysis course overall Objective - Vital Signs/Intake and Output Vital Signs (last 24 hours): Temp Pulse Resp BP Pulse Ox 99.4 F 108 H 20 118/54 L 93 L 10/13/17 07:02 10/13/17 08:00 10/13/17 07:02 10/13/17 07:02 10/13/17 07:02 - Medications Medications: Current Medications Acetylcysteine (Acetylcysteine 20%) 4 ml INH RQ6 [facility] Last Admin: 10/13/17 07:24 Dose: 4 ml Albuterol/Ipratropium (Duoneb 3 Mg/0.5 Mg (3 Ml) Ud) 3 ml INH RQ6 [facility] Last Admin: 10/13/17 07:24 Dose: 3 ml Apixaban (Eliquis) 2.5 mg PO BID [facility] Last Admin: 10/12/17 18:40 Dose: 2.5 mg Aspirin (Aspirin Chewable) 81 mg PO DAILY [facility] Last Admin: 10/13/17 10:04 Dose: 81 mg Epoetin Chencho (Procrit) 10,000 unit IV MWF [facility] Last Admin: 10/12/17 17:41 Dose: 10,000 unit Famotidine (Pepcid) 20 mg PO DAILY [facility] Last Admin: 10/13/17 10:04 Dose: 20 mg Cefepime HCl 1 gm/ Dextrose 50 mls @ 100 mls/hr IVPB Q24H [facility] Last Admin: 10/13/17 08:45 Dose: 100 mls/hr Ciprofloxacin (Cipro 200mg/100ml D5w) 100 mls @ 67 mls/hr IVPB Q12H [facility] Last Admin: 10/13/17 09:43 Dose: 67 mls/hr Insulin Detemir (Levemir) 8 unit SC AMHS [facility] Last Admin: 10/13/17 10:03 Dose: 8 unit Insulin Human Regular (Novolin R) 5 unit SC AC [facility] Last Admin: 10/13/17 08:53 Dose: 5 unit Lisinopril (Zestril) 5 mg PO DAILY [facility] Last Admin: 10/13/17 10:04 Dose: 5 mg Metoprolol Tartrate (Lopressor) 50 mg PO BID [facility] Last Admin: 10/13/17 10:04 Dose: 50 mg Rosuvastatin Calcium (Crestor) 10 mg PO HS [facility] Last Admin: 10/12/17 21:47 Dose: 10 mg Saccharomyces Boulardii (Florastor) 250 mg PO BID [facility] Last Admin: 10/13/17 10:04 Dose: 250 mg - Labs Labs: 10/13/17 07:35 10/13/17 07:35 PT 13.9 SECONDS (9.7-12.2) H 08/24/17 06:08 INR 1.2 08/24/17 06:08 APTT 55 SECONDS (21-34) H D 08/17/17 06:12 - Constitutional Appears: No Acute Distress, Chronically Ill - Head Exam Head Exam: ATRAUMATIC, NORMAL INSPECTION - Eye Exam Eye Exam: EOMI, Normal appearance - Neck Exam Neck Exam: Normal Inspection. absent: Tenderness - Respiratory Exam Respiratory Exam: Clear to Ausculation Bilateral, NORMAL BREATHING PATTERN - Cardiovascular Exam Cardiovascular Exam: Irregular Rhythm, +S1 - GI/Abdominal Exam GI & Abdominal Exam: Soft. absent: Tenderness - Extremities Exam Extremities Exam: Normal Inspection. absent: Pedal Edema - Neurological Exam Neurological Exam: Altered, Motor Sensory Deficit - Skin Skin Exam: Dry, Warm Assessment and Plan (1) Acute on chronic renal failure Status: Resolved (2) CAD (coronary artery disease) Status: Chronic (3) CHF exacerbation Status: Chronic (4) Type 2 diabetes mellitus with diabetic nephropathy Status: Acute (5) Cardiorenal disease Status: Acute (6) ESRD (end stage renal disease) Status: Acute - Assessment and Plan (Free Text) Plan: same dialysis MWF monitor labs periodically
--- NOTE | 2017-10-13 13:14 | RAD ---
HISTORY: PNEUMONIA COMPARISON: Chest x-ray performed 10/11/17 TECHNIQUE: Chest, one view. FINDINGS: Tracheostomy tube. Dialysis catheter with tips extending to the right atrium/ cavoatrial junction. LUNGS: Small left pleural effusion. Mild left basilar atelectasis. Right mid lung zone infiltrate or atelectasis. No definite pneumothorax. CARDIOVASCULAR: Single lead left-sided AICD. Cardiomegaly. OSSEOUS STRUCTURES: Osseous demineralization. Degenerative changes. VISUALIZED UPPER ABDOMEN: Unremarkable. OTHER FINDINGS: None. IMPRESSION: Small left pleural effusion. Mild left basilar atelectasis. Right mid lung zone infiltrate or atelectasis. Single lead left-sided AICD. Cardiomegaly. Tracheostomy tube. Dialysis catheter with tips extending to the right atrium/ cavoatrial junction.
--- NOTE | 2017-10-13 14:27 | CP.PCM.PN ---
Subjective - Date & Time of Evaluation Date of Evaluation: 10/13/17 Time of Evaluation: 10:00 - Subjective Subjective: patient seen and examined. On trach collar Very congested Appears diaphoretic and in mild reratory distress Afebrile Objective - Vital Signs/Intake and Output Vital Signs (last 24 hours): Temp Pulse Resp BP Pulse Ox 99.4 F 87 20 118/54 L 93 L 10/13/17 07:02 10/13/17 12:00 10/13/17 07:02 10/13/17 07:02 10/13/17 07:02 - Medications Medications: Current Medications Acetylcysteine (Acetylcysteine 20%) 4 ml INH RQ6 [facility] Last Admin: 10/13/17 13:06 Dose: 4 ml Albuterol/Ipratropium (Duoneb 3 Mg/0.5 Mg (3 Ml) Ud) 3 ml INH RQ6 [facility] Last Admin: 10/13/17 13:06 Dose: 3 ml Apixaban (Eliquis) 2.5 mg PO BID [facility] Last Admin: 10/13/17 10:04 Dose: 2.5 mg Aspirin (Aspirin Chewable) 81 mg PO DAILY [facility] Last Admin: 10/13/17 10:04 Dose: 81 mg Epoetin Chencho (Procrit) 10,000 unit IV MWF [facility] Last Admin: 10/12/17 17:41 Dose: 10,000 unit Famotidine (Pepcid) 20 mg PO DAILY [facility] Last Admin: 10/13/17 10:04 Dose: 20 mg Cefepime HCl 1 gm/ Dextrose 50 mls @ 100 mls/hr IVPB Q24H [facility] Last Admin: 10/13/17 08:45 Dose: 100 mls/hr Ciprofloxacin (Cipro 200mg/100ml D5w) 100 mls @ 67 mls/hr IVPB Q12H [facility] Last Admin: 10/13/17 09:43 Dose: 67 mls/hr Insulin Detemir (Levemir) 8 unit SC AMHS [facility] Last Admin: 10/13/17 10:03 Dose: 8 unit Insulin Human Regular (Novolin R) 5 unit SC AC [facility] Last Admin: 10/13/17 12:03 Dose: 5 unit Lisinopril (Zestril) 5 mg PO DAILY [facility] Last Admin: 10/13/17 10:04 Dose: 5 mg Metoprolol Tartrate (Lopressor) 50 mg PO BID [facility] Last Admin: 10/13/17 10:04 Dose: 50 mg Rosuvastatin Calcium (Crestor) 10 mg PO [facility] Last Admin: 10/12/17 21:47 Dose: 10 mg Saccharomyces Boulardii (Florastor) 250 mg PO BID [facility] Last Admin: 10/13/17 10:04 Dose: 250 mg - Labs Labs: 10/13/17 07:35 10/13/17 07:35 PT 13.9 SECONDS (9.7-12.2) H 08/24/17 06:08 INR 1.2 08/24/17 06:08 APTT 55 SECONDS (21-34) H D 08/17/17 06:12 - Head Exam Head Exam: ATRAUMATIC, NORMOCEPHALIC - Eye Exam Eye Exam: Normal appearance - ENT Exam ENT Exam: Mucous Membranes Moist - Respiratory Exam Respiratory Exam: Rales, Respiratory Distress - Cardiovascular Exam Cardiovascular Exam: REGULAR RHYTHM - GI/Abdominal Exam GI & Abdominal Exam: Soft, Normal Bowel Sounds Assessment and Plan (1) Pneumonia Assessment & Plan: increasing pro calcitonin level Infectious disease followup Tracheal aspirate for culture and sensitivity Followup chest x-ray Status: Acute (2) Cardiac arrest Status: Acute (3) History of DVT (deep vein thrombosis) Status: Acute (4) CKD (chronic kidney disease) Status: Chronic (5) Acute on chronic renal failure Status: Resolved (6) CHF (congestive heart failure) Status: Acute
--- NOTE | 2017-10-13 16:47 | CP.PCM.PN ---
<Esvin Martinez - Last Filed: 10/13/17 17:22> Subjective - Date & Time of Evaluation Date of Evaluation: 10/13/17 Time of Evaluation: 08:30 - Subjective Subjective: Patient seen and examined at bedside. alert and awake ROS unattainable Objective - Vital Signs/Intake and Output Vital Signs (last 24 hours): Temp Pulse Resp BP Pulse Ox 99.4 F 87 20 118/54 L 93 L 10/13/17 07:02 10/13/17 12:00 10/13/17 07:02 10/13/17 07:02 10/13/17 07:02 Intake and Output: 10/13/17 10/13/17 06:59 18:59 Intake Total 550 Balance 550 - Medications Medications: Current Medications Acetylcysteine (Acetylcysteine 20%) 4 ml INH RQ6 [facility] Last Admin: 10/13/17 13:06 Dose: 4 ml Albuterol/Ipratropium (Duoneb 3 Mg/0.5 Mg (3 Ml) Ud) 3 ml INH RQ6 [facility] Last Admin: 10/13/17 13:06 Dose: 3 ml Apixaban (Eliquis) 2.5 mg PO BID [facility] Last Admin: 10/13/17 10:04 Dose: 2.5 mg Aspirin (Aspirin Chewable) 81 mg PO DAILY [facility] Last Admin: 10/13/17 10:04 Dose: 81 mg Epoetin Chencho (Procrit) 10,000 unit IV MWF [facility] Last Admin: 10/12/17 17:41 Dose: 10,000 unit Famotidine (Pepcid) 20 mg PO DAILY [facility] Last Admin: 10/13/17 10:04 Dose: 20 mg Cefepime HCl 1 gm/ Dextrose 50 mls @ 100 mls/hr IVPB Q24H [facility] Last Admin: 10/13/17 08:45 Dose: 100 mls/hr Ciprofloxacin (Cipro 200mg/100ml D5w) 100 mls @ 67 mls/hr IVPB Q12H [facility] Last Admin: 10/13/17 09:43 Dose: 67 mls/hr Insulin Detemir (Levemir) 8 unit SC AMHS [facility] Last Admin: 10/13/17 10:03 Dose: 8 unit Insulin Human Regular (Novolin R) 5 unit SC AC [facility] Last Admin: 10/13/17 12:03 Dose: 5 unit Lisinopril (Zestril) 5 mg PO DAILY [facility] Last Admin: 10/13/17 10:04 Dose: 5 mg Metoprolol Tartrate (Lopressor) 50 mg PO BID [facility] Last Admin: 10/13/17 10:04 Dose: 50 mg Rosuvastatin Calcium (Crestor) 10 mg PO HS [facility] Last Admin: 10/12/17 21:47 Dose: 10 mg Saccharomyces Boulardii (Florastor) 250 mg PO BID [facility] Last Admin: 10/13/17 10:04 Dose: 250 mg - Labs Labs: 10/13/17 07:35 10/13/17 07:35 PT 13.9 SECONDS (9.7-12.2) H 08/24/17 06:08 INR 1.2 08/24/17 06:08 APTT 55 SECONDS (21-34) H D 08/17/17 06:12 - Additional Findings Additional findings: - Constitutional Appears: Well, No Acute Distress - Head Exam Head Exam: ATRAUMATIC, NORMOCEPHALIC - Eye Exam Eye Exam: EOMI - ENT Exam ENT Exam: Mucous Membranes Moist - Neck Exam Additional comments: Trach Collar - Respiratory Exam Respiratory Exam: Clear to Ausculation Bilateral - Cardiovascular Exam Cardiovascular Exam: REGULAR RHYTHM, +S1, +S2 - GI/Abdominal Exam GI & Abdominal Exam: Soft, Normal Bowel Sounds. absent: Distended, Tenderness - Back Exam Additional comments: 10cm x 10cm unstageable ulcer with healthy granulation tissue. No necrotic tissue. Optifoam dressing with medihoney. - Neurological Exam Neurological Exam: Alert, Awake - Psychiatric Exam Psychiatric exam: Normal Affect, Normal Mood Assessment and Plan - Assessment and Plan (Free Text) Plan: ARDS, Cardiac Arrest, Pulmonary Edema, NSTEMI * Code Blue on 08/10: asystole, ROSC achieved. * Pulm (Rajesh) * Cards (Moo) * ASA 81 PO QD * Eliquis 2.5 PO BID * GI (Johann) * Tracheostomy 08/22 * Peg tube 08/25 Atrial flutter * Cards (Moo) * Eliquis 2.5mg PO bid Acute on Chronic Systolic CHF exacerbation * Cards (Moo) * Echocardiogram (08/08/17) EF: 25-30% * Medications: * Aspirin 81mg PO daily * Lopressor 50mg PO bid * Crestor 10mg POqHS Pneumonia * ID (Melinda) * Increased wbc with blood on trach collar * CXR 10/12/17 shows infiltrate * CXR 10/13/17 shows small right pleural effusion and left infiltrate * Consider HAP * Cipro 200 IV Q12 * Cefepime 1 IV QD * F/U Sputum Culture-PENDING HTN * Lopressor 50mg PO bid * Lisinopril 5mg PO daily CKD * Nephro (Ruben) * Dialysis MWF * Permacath * Phoslo 1334mg GT TID * Epoetin 10,000 unit IV MWF Diabetes mellitus * Accuchecks Q6H * HgbA1c 8.4 * Regular 5 units AC * Levemir 8 units AMHS HLD * Crestor 10 mg PO HS Anemia * Heme([place]) * Ferric Sodium Gluconate 125mg IVPB * Procrit 10,000 units M-W- History of DVT * Eliquis 2.5mg PO BID Sacral Ulcer * Sacral ulcer * wound culture 10/12/17 - Enterobacter aerogenes * Cefepime 1 IV QD * Wound care * Turn q 2 hours * medihoney on unstageable ulcer * Prevalon Boots for Right Heal Blister * Surgery says continue current management Hx CAD * Cards (Moo) * Echocardiogram (08/08/17) EF: 25-30% * Medications: * Aspirin 81mg PO daily * Lopressor 50mg PO bid * Crestor 10mg PO Prophylactic measure * Pepcid 20mg PO daily Patient discussed with Attending Esvin Martinez - PGY-1 <Mariangel Lazar V - Last Filed: 10/13/17 20:17> Objective - Vital Signs/Intake and Output Vital Signs (last 24 hours): Temp Pulse Resp BP Pulse Ox 97.6 F 95 H 20 111/64 95 10/13/17 15:30 10/13/17 16:00 10/13/17 07:02 10/13/17 15:30 10/13/17 15:30 Intake and Output: 10/13/17 10/14/17 18:59 06:59 Intake Total 550 Balance 550 - Medications Medications: Current Medications Acetylcysteine (Acetylcysteine 20%) 4 ml INH RQ6 [facility] Last Admin: 10/13/17 19:51 Dose: Not Given Apixaban (Eliquis) 2.5 mg PO BID [facility] Last Admin: 10/13/17 17:41 Dose: 2.5 mg Aspirin (Aspirin Chewable) 81 mg PO DAILY [facility] Last Admin: 10/13/17 10:04 Dose: 81 mg Epoetin Chencho (Procrit) 10,000 unit IV MWF [facility] Last Admin: 10/12/17 17:41 Dose: 10,000 unit Famotidine (Pepcid) 20 mg PO DAILY [facility] Last Admin: 10/13/17 10:04 Dose: 20 mg Cefepime HCl 1 gm/ Dextrose 50 mls @ 100 mls/hr IVPB Q24H [facility] Last Admin: 10/13/17 08:45 Dose: 100 mls/hr Ciprofloxacin (Cipro 200mg/100ml D5w) 100 mls @ 67 mls/hr IVPB Q12H [facility] Last Admin: 10/13/17 09:43 Dose: 67 mls/hr Fluconazole 100 mg/ (Miscellaneous) 50 mls @ 100 mls/hr IVPB Q24H [facility] Insulin Detemir (Levemir) 8 unit SC AMHS [facility] Last Admin: 10/13/17 10:03 Dose: 8 unit Insulin Human Regular (Novolin R) 5 unit SC AC [facility] Last Admin: 10/13/17 17:46 Dose: 5 unit Lisinopril (Zestril) 5 mg PO DAILY [facility] Last Admin: 10/13/17 10:04 Dose: 5 mg Metoprolol Tartrate (Lopressor) 50 mg PO BID [facility] Last Admin: 10/13/17 17:41 Dose: 50 mg Rosuvastatin Calcium (Crestor) 10 mg PO HS [facility] Last Admin: 10/12/17 21:47 Dose: 10 mg Saccharomyces Boulardii (Florastor) 250 mg PO BID [facility] Last Admin: 10/13/17 17:40 Dose: 250 mg - Labs Labs: 10/13/17 07:35 10/13/17 07:35 PT 13.9 SECONDS (9.7-12.2) H 08/24/17 06:08 INR 1.2 08/24/17 06:08 APTT 55 SECONDS (21-34) H D 08/17/17 06:12 Attending/Attestation - Attestation I have personally seen and examined this patient.: Yes I have fully participated in the care of the patient.: Yes I have reviewed all pertinent clinical information, including history, physical exam and plan: Yes Notes (Text): Patient seen, examined, and case discussed with day-time resident. Patient is awake and alert, will follow basic directions such as moving arms. Patient is not speaking. Discussed with patient's nurse, Veronica, patient had bowel movement yesterday. Patient had wound change yesterday. Patient is on second day of Ciprofloxocin and Cefepime IV. Discussed with nursing, regarding suctioning for the patient. Discussed with case management and social media senior associate, they will speak with insurance today regarding patient's status. Ordered for blood cultures today given uptrending white count. Assessment/Plan (1) Acute Respiratory Failure ARDS Cardiac Arrest Pulmonary Edema Nonstemi Assessment and Plan: * Code Blue on 08/10: asystole, cardiopulmonary resuscitative measures initiated , requiring 3 epis, bicarbonate, ROSC achieved and intubated and brought to the ICU for further management; Patient in the ICU from 08/10 until present. * Pulmonary: Dr Mena (Dr. Jeffers covering until 09/04/17)-->help appreciated * Cardiology: Dr. Cortés on board-->help appreciated * GI (Dr. Wills) on board-->help appreciated * S/P Tracheostomy 08/22 * S/P Peg tube placement 08/25 * s/p insertion of right posterior chest tube 08/19-->removed 08/24/17 * Passy Brielle Trach placed 09/15 * There was consideration for possible thoracentesis of left side pleural effusion, evaluated by IR, there is no fluid to drain per Dr. Gross * Chest xray (08/26): right arm PICC is seen with the tip of distal subclavian vein. PICC may be used * Chest Xray (09/20/17): lines and tubes stable position, left-sided pacemaker, moderate venous congestion, left basilar opacity with associated small left pleural effusion, Cardiomegaly. Prominent aorta, degenrative changes in spine and shoulders * Medications: * Acetylcysteine 20% 4ml INH RQ6H * Duoneb 3ml INH RQ6H * Aspirin 81mg PO daily * Eliquis 2.5mg PO bid * Lopressor 50mg PO bid * 10/03: pulmonary note: reports attempt at decannulation; will follow-up (2) Abnormal Stress Test History of AICD History of Coronary Artery Disease Assessment and Plan: * Cardiology (Dr. Cortés) on board-->help appreciated * TSH: 1.16; T4: 1.53 * Echocardiogram (08/08/17): left ventricle systolic function is severely impaired. EF: 25-30%; global hypokinesis of left ventricle mild aortic regurgitation. Mitral regurgitation is moderate. Moderate-severe pulmonary hypertension * Plan was for cardiac catheterization; delayed due to acute renal failure; Attempted gentle hydration and mucomyst on 08/09 to optimize prior to cath * On 08/10, patient was in asystole, ACLS protocol, ROSC achieved, intubated and transfered to the ICU. Patient in acute pulmonary edema. * Patient hospitalized and require to and from ICU twice during this admission * Cardiac cath postponed at this time * Medications: * Acetylcysteine 20% 4ml INH RQ6H * Duoneb 3ml INH RQ6H * Aspirin 81mg PO daily * Eliquis 2.5mg PO bid * Lopressor 50mg PO bid * Crestor 10mg POqHS * Lisinopril 5mg PO daily (3) Atrial flutter Assessment and Plan: * Cardiology (Dr. Cortés) on board-->help appreciated * Refractory to Lopressor/Cardizem IVP * c/w Eliquis 2.5mg PO bid * c/w Lopressor 50mg PO bid Status: Resolved (4) Acute on Chronic Systolic CHF exacerbation Assessment and Plan: * Cardiology (Dr. Cortés) on board-->help appreciated * Transferred to the ICU on 08/10 following cardiac arrest and intubation. * Echocardiogram (08/08/17): left ventricular systolic function is severely impaired. EF: 25-30%; global hypokinesis of left ventricle mild aortic regurgitation. Mitral regurgitation is moderate. Moderate-severe pulmonary hypertension * Medications: * Aspirin 81mg PO daily * Lopressor 50mg PO bid * Lisinopril 5mg PO daily * Crestor 10mg POqHS Status: Stable (5) Leukocytosis Assessment and Plan: * Pleural Fluid 08/19/17 did not show any growth * Blood cultures (09/13): no growth X5 days X2 * Blood cultures (09/07) during dialysis: no growth X5 days X2 * UA and urine culture (08/27): Yeast Species. * UA and urine culture (09/13): Yeast Species. 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 * Sacral Ulcer (09/15/17): VRE and Reny Albicans * Sacral Ulcer (09/20/17): VRE and Reny Albicans * Sacral Ulcer (09/30/17): Enterobacter Aerogenes-->Sensitive Cefepime IV * Bone Scan performed 09/17/17 to check for Osteomyelitis at the Sacrum: negative for osteomyelitis * c/w Tigecycline (09/16/17): which will cover the VRE in Sacral Wound Culture 09/14/17 and repeat on 09/20/17--to finish today 10/05/17 * c/w Diflucan 200 mg PO 1x/day (09/13/17; Day 20): which will cover with Yeast in the Sputum, Urine, and Sacral Wound Culture-->stopped on 10/06/17 * Procalcitionin: 8.60 (09/06/17)-->5.80 (09/20)-->2.86 (10/04)--->4.91 (10/12) * Patient started on Cefepime 1 gram IV Q24H and Ciprofloxacin 200mg IV Q12H ( active 10/12/17) Status: Acute (6) Pneumonia Assessment and Plan: * Pulmonary (Dr. Mena) on board-->help appreciated * Infectious Disease (Dr. Lawrence)-->help appreciated * Chest xray (08/26): right arm PICC is seen with the tip of distal subclavian vein. PICC may be used * Rapid A strep, Influenza A and B studies, Urine Legionella, Mycoplasma studies = Negative * Florastor 250mg PO bid * 08/07/17: +Strep Pneumoniae in the urine * Meropenem 500mg IV Q 8 hours (08/14/17 through 08/18/17) and Zosyn 2.25 mg IV Q6H (08/13/17 through 08/18/17) * Cefepime 1 gm IV Q24H: started on 08/19/17 and was discontinued by ID Dr. Lawrence on 08/30/17: monitor vitals and labs * s/p right posterior chest tube 08/19-08/24 * Sputum Culture 08/19/17 shows No growth * Pleural fluid 08/19/17: No growth * 09/07/17 Sputum: Enterocloace Bacter and Yeast Species: See Antibiotic treatment in previous Assessment and Plan * Sputum 09/10/17 shows NO AFB * Procalcitionin: 8.60 (09/06/17)-->5.80 (09/20)-->2.86 (10/04)--->4.91 (10/12) * Patient started on Cefepime 1 gram IV Q24H and Ciprofloxacin 200mg IV Q12H ( active 10/12/17) * Will repeat chest xray post-dialysis Status: Acute (7) HTN (hypertension) Assessment and Plan: * Lopressor 50mg PO bid * Lisinopril 5mg PO daily Status: Chronic (8) CKD (chronic kidney disease) on Dialysis Assessment and Plan: * Dr. Miranda (nephrology) consulted on the case * Hx of CKD-->Started on dialysis 08/15/17 * Kurtis catheter placed and removed 08/22 * s/p Right Chest Permcath 08/22 * Patient is on dialysis M-W-F; oliguric * Phoslo 1334mg GT TID * Epoetin 10,000 unit IV MWF Status: Chonic (9) Diabetes mellitus Assessment and Plan: * Accuchecks Q6H * HgbA1c 8.4 * Started peg feedings on 08/26/17 * Levemir 8 unit AM and HS * Novolin R 5 unit AC (10) HLD (hyperlipidemia) Assessment and Plan: * LFTS have normalized; will restart statin 09/20/17 * Crestor 10mg POqHS Status: Chronic (11) Anemia Assessment and Plan: * Heme-oncology (Dr. Giles bender) on board-->help appreciated * Likely iron deficiency anemia based on prior admissions * Ferritin 27.4, Iron 22, TIBC 322, % Saturation 7 * Ferric Sodium Gluconate 125mg IVPB daily (active 08/08-08/16) * Procrit 10,000 units M-W- * Monitor Hgb/Hct: stable Status: Chronic (12) History of DVT (deep vein thrombosis) Assessment and Plan: * Patient was previously on Eliquis for a prior history of DVT. * Repeat dopplers 08/09/17 are negative for DVT * Off Heparin Drip 08/17/17 * Started Eliquis 2.5mg PO BID for atrial flutter and history of DVT Status: Chronic (13) UTI Assessment and Plan: * Infectious disease (Dr. Lawrence) on board-->help appreciated * Exchange jaquez out and repeat urine cultures * Urine Culture 08/12/17 showed Gram Negative Rods: NO identification and NO sensitivities were performed * Meropenem 500mg IV Q 12hours (active since 08/14/17 through 08/18/17) to cover for UTI per ID * Repeat Urine Culture 08/18/17 shows NO growth * 08/25: reculture in light of leukocytosis * 08/27: pending urine studies * 08/30: Urine Culture 08/27/17 showed Yeast Species but no antifungal at that time secondary to recent history of Elevated LFTs * Urine Culture 09/13/17 showed Yeast Species: completed Diflucan on 10/06/17 * Urine culture (10/06/17): No growth Status: Chronic (14) Confusion; Alzheimer's Dementia Assessment and Plan: * Per daughter, patient has been getting bouts of confusion over the past year but appears at baseline. Patient has not seen formal neurology as outpatient per daughter. Per , prior to event, noted Alzheimers' disease dx one year ago * CT head w/o contrast (08/10/17):acute os subacute lacune infarct is not excluded in the left basal ganglia inferiorly with definitive chronic lacune identified in the right basal ganglia superiorly. No acute or subacute lobar brain infarction is appreciable by standard CT criteria. Mild age-related neuro degenerative changes are identifed. No acute intracranial hemorrhage or mass is identified throughout * 08/26: Off Sedation-->patient moves all extremities randomly but does not follow directions * 08/27: off sedation-->patient is very calm, smiles at his * 08/28: off sedation-->patient is very calm Status: Chronic (15) Unstageable Sacral Ulcer, Left Ear Auricle Ulcer, Right Heal Ulcer Assessment and Plan: * Wound care on board * WOUND CARE [id number] patients sacral ulcer. Base softening up. Must continue medi-honey (nickel thick) then cover with a bordered dressing to be done daily. Patient must be repositioned frequently to optimize offloading of sacral region. Right heel is dark purple in color. Must continue to elevate both heels at all times to optimize heel offloading. Hemoglobin-9.6, Marshal of 14. Patient continues to be at risk for skin breakdown. will continue to follow. 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 * Sacral Ulcer (09/15/17): VRE and Reny Albicans * Sacral Ulcer (09/20/17): VRE and Reny Albicans * Sacral Ulcer (09/30/17): Enterobacter Aerogenes-->Sensitive Cefepime IV * Bone Scan performed 09/17/17 to check for Osteomyelitis at the Sacrum: negative for osteomyeliti * Daily wound care and dressing change by medicine team; healing appropriately Antibiotics * c/w Tigecycline (09/16/17: which will cover the VRE in Sacral Wound Culture and repeat on 09/20/17-->PER ID, d/c 10/15/17 * c/w Diflucan 200 mg PO 1x/day (09/13/17; Day 20): which will cover with Yeast in the Sputum, Urine, and Sacral Wound Culture--> PER ID, D/c 10/06/17 * Procalcitionin: 8.60 (09/06/17)-->5.80 (09/20)-->2.86 (10/04)--->4.91 (10/12) * Patient started on Cefepime 1 gram IV Q24H and Ciprofloxacin 200mg IV Q12H ( active 10/12/17) Status: Acute (16) Elevated LFTs Assessment and Plan: * Have normalized * Currently off Diflucan since 10/06/17 * Crestor 10mg POqHS (17). Hx Constipation * Monitor bowel movement (18). Hyponatremia-->resolved (). Prophylactic measure Assessment and Plan: * Pepcid 20mg PO daily * Start Eliquis 2.5mg PO BID * s/p peg placement 08/25 * s/p trachesostomy 08/22 * s/p Permcath placement 08/22 removal Kurtis catheter * s/p right posterior chest tube 08/19-->removed 08/24 * s/p Right Arm PICC 08/26 * Passy Flex Trach placed 09/15 * (Jovita Serrano): -->number provided to the nurse- ->consented for peg placement; discussed about LTAC 08/26 * Spoke with Dr. Pickard, PMD regarding patient's hospitalization up until 08/26 Disposition: * Awaiting from case management/social work in regards to discharge to subacute rehab--->will need to restart process to secure dialysis placement * patient's procalcitonin is elevated, leukocytosis, afebrile; sacral wound culture is sensitive Cefepime IV. Patient started on Cefepime and Cipro IV. Today is day two. Ordered for blood cultures X2. * Will need to f/u with pulm regarding when patient can be decannulated
[2017-10-13] MEDS ORDERED: Fluconazole IV 200mg/100 ml NS 100 MG in Premixed IV 1 EA IVPB SCH (19:00)
--- NOTE | 2017-10-13 21:27 | CP.PCM.PN ---
Subjective - Date & Time of Evaluation Date of Evaluation: 10/13/17 Time of Evaluation: 16:20 - Subjective Subjective: Patient seen and evaluated No cardiac events noted Physical Examination - Constitutional Appears: Chronically Ill - Head Exam Head Exam: ATRAUMATIC, NORMAL INSPECTION, NORMOCEPHALIC - Eye Exam Eye Exam: EOMI Pupil Exam: NORMAL ACCOMODATION - ENT Exam ENT Exam: Mucous Membranes Moist - Neck Exam Additional comments: trach - Respiratory Exam Respiratory Exam: Clear to Ausculation Bilateral, NORMAL BREATHING PATTERN - Cardiovascular Exam Cardiovascular Exam: REGULAR RHYTHM - GI/Abdominal Exam GI & Abdominal Exam: Soft, Normal Bowel Sounds. absent: Distended, Tenderness - Extremities Exam Extremities Exam: absent: Joint Swelling, Tenderness - Back Exam Additional comments: 10x10 unstageable ulcer with healthy granulation tissue. No necrotic tissue. optifoam dressing with medihoney. Clear dry and intact - Neurological Exam Neurological Exam: Alert, Awake - Psychiatric Exam Psychiatric exam: Normal Affect, Normal Mood - Skin Skin Exam: Dry, Intact, Normal Color, Warm Objective - Vital Signs/Intake and Output Vital Signs (last 24 hours): Temp Pulse Resp BP Pulse Ox 97.6 F 95 H 20 111/64 95 10/13/17 15:30 10/13/17 16:00 10/13/17 07:02 10/13/17 15:30 10/13/17 15:30 Intake and Output: 10/13/17 10/14/17 18:59 06:59 Intake Total 550 Balance 550 - Medications Medications: Current Medications Acetylcysteine (Acetylcysteine 20%) 4 ml INH RQ6 [facility] Last Admin: 10/13/17 19:51 Dose: Not Given Apixaban (Eliquis) 2.5 mg PO BID [facility] Last Admin: 10/13/17 17:41 Dose: 2.5 mg Aspirin (Aspirin Chewable) 81 mg PO DAILY [facility] Last Admin: 10/13/17 10:04 Dose: 81 mg Epoetin Chencho (Procrit) 10,000 unit IV MWF [facility] Last Admin: 10/12/17 17:41 Dose: 10,000 unit Famotidine (Pepcid) 20 mg PO DAILY [facility] Last Admin: 10/13/17 10:04 Dose: 20 mg Cefepime HCl 1 gm/ Dextrose 50 mls @ 100 mls/hr IVPB Q24H [facility] Last Admin: 10/13/17 08:45 Dose: 100 mls/hr Ciprofloxacin (Cipro 200mg/100ml D5w) 100 mls @ 67 mls/hr IVPB Q12H [facility] Last Admin: 10/13/17 09:43 Dose: 67 mls/hr Fluconazole 100 mg/ (Miscellaneous) 50 mls @ 100 mls/hr IVPB Q24H [facility] Insulin Detemir (Levemir) 8 unit SC AMHS [facility] Last Admin: 10/13/17 10:03 Dose: 8 unit Insulin Human Regular (Novolin R) 5 unit SC AC [facility] Last Admin: 10/13/17 17:46 Dose: 5 unit Lisinopril (Zestril) 5 mg PO DAILY [facility] Last Admin: 10/13/17 10:04 Dose: 5 mg Metoprolol Tartrate (Lopressor) 50 mg PO BID [facility] Last Admin: 10/13/17 17:41 Dose: 50 mg Rosuvastatin Calcium (Crestor) 10 mg PO HS [facility] Last Admin: 10/12/17 21:47 Dose: 10 mg Saccharomyces Boulardii (Florastor) 250 mg PO BID [facility] Last Admin: 10/13/17 17:40 Dose: 250 mg - Labs Labs: 10/13/17 07:35 10/13/17 07:35 PT 13.9 SECONDS (9.7-12.2) H 08/24/17 06:08 INR 1.2 08/24/17 06:08 APTT 55 SECONDS (21-34) H D 08/17/17 06:12 Assessment and Plan - Assessment and Plan (Free Text) Assessment: Assessment and Plan - Assessment and Plan (Free Text) Assessment: Atrial Fibrillation Intermittent Rate controlled. On Metoprolol 50 mg PO BID, Eliquis 2.5 mg PO BID CAD, chest pain -No current plans for cardiac cath (acute respiratory failure and elevated Cr) , history of abnormal stress test -Elevated Troponin likely due to chest compressions during cardiac arrest 08/10 -No acute ST changes on EKG -Continue ASA, Crestor, Metoprolol. -Echocardiogram from 08/08/17 showed left ventricle systolic function is severely impaired. EF: 25-30%; global hypokinesis of LV mild AR. MR is moderate. Moderate-severe pulmonary hypertension Systolic CHF exacerbation -CXR 09/09: Diminished bilateral basilar airspace disease; stable cardiomegaly -BNP 30097 on 08/06/17 -Continue ASA, Crestor, Metoprolol -Echocardiogram from 08/08/17 showed left ventricle systolic function is severely impaired. EF: 25-30%; global hypokinesis of LV mild AR. MR is moderate. Moderate-severe pulmonary hypertesnion Dobutamine discontinued in light of atrial flutter-type episodes Diabetes Mellitus ISS Continue to monitor ESRD on HD Currently on HD On Procrit and Phoslo Nephro on the case Prophylaxis Pepcid 20 mg PO daily Eliquis 2.5 mg PO BID (Renal precautions) Disposition Awaiting Transfer to LTAC
--- NOTE | 2017-10-13 21:48 | CP.PCM.PN ---
Subjective - Date & Time of Evaluation Date of Evaluation: 10/13/17 Time of Evaluation: 05:30 - Subjective Subjective: dictated Objective - Vital Signs/Intake and Output Vital Signs (last 24 hours): Temp Pulse Resp BP Pulse Ox 97.6 F 95 H 20 111/64 95 10/13/17 15:30 10/13/17 16:00 10/13/17 07:02 10/13/17 15:30 10/13/17 15:30 Intake and Output: 10/13/17 10/14/17 18:59 06:59 Intake Total 550 Balance 550 - Medications Medications: Current Medications Acetylcysteine (Acetylcysteine 20%) 4 ml INH RQ6 [facility] Last Admin: 10/13/17 19:51 Dose: Not Given Apixaban (Eliquis) 2.5 mg PO BID [facility] Last Admin: 10/13/17 17:41 Dose: 2.5 mg Aspirin (Aspirin Chewable) 81 mg PO DAILY [facility] Last Admin: 10/13/17 10:04 Dose: 81 mg Epoetin Chencho (Procrit) 10,000 unit IV MWF [facility] Last Admin: 10/12/17 17:41 Dose: 10,000 unit Famotidine (Pepcid) 20 mg PO DAILY [facility] Last Admin: 10/13/17 10:04 Dose: 20 mg Cefepime HCl 1 gm/ Dextrose 50 mls @ 100 mls/hr IVPB Q24H [facility] Last Admin: 10/13/17 08:45 Dose: 100 mls/hr Ciprofloxacin (Cipro 200mg/100ml D5w) 100 mls @ 67 mls/hr IVPB Q12H [facility] Last Admin: 10/13/17 09:43 Dose: 67 mls/hr Fluconazole 100 mg/ (Miscellaneous) 50 mls @ 100 mls/hr IVPB Q24H [facility] Aztreonam 1 gm/ Sodium (Chloride) 100 mls @ 200 mls/hr IVPB Q24H [facility] Insulin Detemir (Levemir) 8 unit SC AMHS [facility] Last Admin: 10/13/17 10:03 Dose: 8 unit Insulin Human Regular (Novolin R) 5 unit SC AC [facility] Last Admin: 10/13/17 17:46 Dose: 5 unit Lisinopril (Zestril) 5 mg PO DAILY [facility] Last Admin: 10/13/17 10:04 Dose: 5 mg Metoprolol Tartrate (Lopressor) 50 mg PO BID [facility] Last Admin: 10/13/17 17:41 Dose: 50 mg Rosuvastatin Calcium (Crestor) 10 mg PO HS [facility] Last Admin: 10/12/17 21:47 Dose: 10 mg Saccharomyces Boulardii (Florastor) 250 mg PO BID [facility] Last Admin: 10/13/17 17:40 Dose: 250 mg - Labs Labs: 10/13/17 07:35 10/13/17 07:35 PT 13.9 SECONDS (9.7-12.2) H 08/24/17 06:08 INR 1.2 08/24/17 06:08 APTT 55 SECONDS (21-34) H D 08/17/17 06:12
[2017-10-14] MEDS: Acetylcysteine 20% Inhal Soln (4ml) INH SCH ×3 (01:27→13:37)
[2017-10-14] MEDS ORDERED: (Novolin R) Insulin Human Regular 100 units/ml vial SC ONE (03:05)
[2017-10-14 07:12] LABS: BASO # 0.1 K/uL (0.0-0.2); BASO % 0.2 % (0.0-2.0); EOS # 0.1 K/uL (0.0-0.7); EOS % 0.4 % (0.0-4.0); LYMPH # 2.7 K/uL (1.0-4.3); LYMPH % 10.7 % (20.0-40.0); MEAN CORPUSCULAR HGB CONC 30.2 g/dL (33.0-37.0); MEAN PLATELET VOLUME 8.5 fL (7.2-11.7); MONO # 1.3 K/uL (0.0-0.8); NRBC % 0.2 % (0.0-2.0); RED CELL DISTRIBUTION WIDTH 25.4 % (11.5-14.5); WHITE BLOOD COUNT 25.7 K/uL (4.8-10.8)
[2017-10-14 07:21] LABS: MEAN CELL VOLUME 85.9 fL (80.0-94.0)
[2017-10-14 07:28] LABS: ALB/GLOB RATIO 0.6 (1.0-2.1); BILIRUBIN,TOTAL 0.4 mg/dL (0.2-1.3); CALCIUM 8.2 mg/dl (8.6-10.4); PHOSPHOROUS 1.4 mg/dL (2.5-4.5); POTASSIUM 3.8 mmol/L (3.6-5.2); TOTAL PROTEIN 7.2 g/dL (6.3-8.3)
[2017-10-14] MEDS: (Novolin R) Insulin Human Regular 100 units/ml vial SC SCH ×7 (08:13→22:19)
--- NOTE | 2017-10-14 08:56 | PN ---
SUBJECTIVE: His white count is increasing. The patient was seen today. He has been on antibiotics and his antibiotics, he is on his Cipro as well as cefepime. He is a renal dialysis patient, so he gets Cipro and cefepime once a day. PHYSICAL EXAMINATION: VITAL SIGNS: Showed that his temp is 97.6, pulse is 95, blood pressure 111/64, pulse is 99. GENERAL: He is bed bound at this time. He is opening his eyes, smiling. He has a trach vent and appears to be in no acute respiratory distress. NECK: Supple. LUNGS: Clear. HEART: S1 and S2 is regular. ABDOMEN: Soft, nontender. No guarding. No rigidity present. He does have a dialysis catheter on the right side. He does have huge unstageable decubitus on the back and they have been applying MediHoney and Optifoam dressing. EXTREMITIES: Have no edema. He has Venodyne boots on. LABORATORY DATA: His labs show white count is 20.8, hemoglobin 8.8, hematocrit 28.1, platelet count is 451. Chemistry shows BUN is 44, creatinine is 2.7, and his micro labs show that the wound culture has Enterococcus and yeast species. The Enterococcus shows that it is sensitive to cefepime, ceftriaxone, ertapenem, amikacin, Azactam, but to imipenem, the sensitivity is 2 because he was on imipenem in the past, cefepime and Azactam. Cipro sensitivity is 2, it is high and the yeast in the urine culture. Wound culture had before VRE and Reny, and VRE was sensitive. So, at this time, I want to see all of the x-ray report. The chest x-ray showed small left pleural effusion, mild left basilar atelectasis, right mid-lung zone infiltrate or atelectasis, single left-sided AICD, cardiomegaly, tracheostomy. Dialysis catheter shows only mild left basilar atelectasis. At this time, I think it is better to give him Azactam 1 g a day and take away the Cipro that may help him better and to add Diflucan, and we will follow if his white count remains elevated. Sadhna Melinda, MD
[2017-10-14] MEDS: Epoetin Alfa 10,000 unit/ml Dialysis IV SCH (11:45)
--- NOTE | 2017-10-14 13:18 | CP.PCM.PN ---
Subjective - Date & Time of Evaluation Date of Evaluation: 10/14/17 Time of Evaluation: 13:16 - Subjective Subjective: Seen at dialysis- BP generally lower Has phos level-1.4 remains on trach collar Objective - Vital Signs/Intake and Output Vital Signs (last 24 hours): Temp Pulse Resp BP Pulse Ox 99.4 F 112 H 20 80/36 L 100 10/14/17 09:05 10/14/17 09:05 10/14/17 09:05 10/14/17 11:30 10/14/17 09:05 Intake and Output: 10/14/17 10/14/17 06:59 18:59 Intake Total 1050 Balance 1050 - Medications Medications: Current Medications Acetylcysteine (Acetylcysteine 20%) 4 ml INH RQ6 [facility] Last Admin: 10/14/17 08:36 Dose: Not Given Apixaban (Eliquis) 2.5 mg PO BID [facility] Last Admin: 10/13/17 17:41 Dose: 2.5 mg Aspirin (Aspirin Chewable) 81 mg PO DAILY [facility] Last Admin: 10/13/17 10:04 Dose: 81 mg Epoetin Chencho (Procrit) 10,000 unit IV MWF [facility] Last Admin: 10/14/17 11:45 Dose: 10,000 unit Famotidine (Pepcid) 20 mg PO DAILY [facility] Last Admin: 10/13/17 10:04 Dose: 20 mg Cefepime HCl 1 gm/ Dextrose 50 mls @ 100 mls/hr IVPB Q24H [facility] Last Admin: 10/14/17 08:12 Dose: 100 mls/hr Ciprofloxacin (Cipro 200mg/100ml D5w) 100 mls @ 67 mls/hr IVPB Q12H [facility] Last Admin: 10/13/17 21:48 Dose: 67 mls/hr Aztreonam 1 gm/ Dextrose 50 mls @ 200 mls/hr IVPB Q24H [facility] Last Admin: 10/14/17 00:06 Dose: 200 mls/hr Fluconazole (Diflucan Iv 100 Mg/50 Ml Ns) 50 mls @ 100 mls/hr IVPB Q24H [facility] Insulin Detemir (Levemir) 8 unit SC AMHS [facility] Last Admin: 10/13/17 21:49 Dose: 8 unit Insulin Human Regular (Novolin R) 5 unit SC AC [facility] Last Admin: 10/14/17 08:13 Dose: 5 unit Insulin Human Regular (Novolin R) 0 unit SC ACHS [facility] PRN Reason: Protocol Last Admin: 10/14/17 08:13 Dose: 6 unit Lisinopril (Zestril) 5 mg PO DAILY [facility] Last Admin: 10/13/17 10:04 Dose: 5 mg Metoprolol Tartrate (Lopressor) 50 mg PO BID [facility] Last Admin: 10/13/17 17:41 Dose: 50 mg Rosuvastatin Calcium (Crestor) 10 mg PO HS [facility] Last Admin: 10/13/17 21:49 Dose: 10 mg Saccharomyces Boulardii (Florastor) 250 mg PO BID [facility] Last Admin: 10/13/17 17:40 Dose: 250 mg - Labs Labs: 10/14/17 07:03 10/14/17 07:03 PT 13.9 SECONDS (9.7-12.2) H 08/24/17 06:08 INR 1.2 08/24/17 06:08 APTT 55 SECONDS (21-34) H D 08/17/17 06:12 - Constitutional Appears: No Acute Distress, Chronically Ill - Head Exam Head Exam: ATRAUMATIC, NORMAL INSPECTION - Eye Exam Eye Exam: EOMI, Normal appearance - Neck Exam Neck Exam: Normal Inspection. absent: Tenderness - Respiratory Exam Respiratory Exam: Rhonchi, Respiratory Distress - Cardiovascular Exam Cardiovascular Exam: Irregular Rhythm, +S1 - GI/Abdominal Exam GI & Abdominal Exam: Soft. absent: Tenderness - Extremities Exam Extremities Exam: Normal Inspection. absent: Tenderness - Neurological Exam Neurological Exam: Altered, Motor Sensory Deficit - Skin Skin Exam: Dry, Warm Assessment and Plan (1) Acute on chronic renal failure Status: Resolved (2) CAD (coronary artery disease) Status: Chronic (3) CHF exacerbation Status: Chronic (4) Type 2 diabetes mellitus with diabetic nephropathy Status: Acute (5) Cardiorenal disease Status: Acute (6) ESRD (end stage renal disease) Status: Acute - Assessment and Plan (Free Text) Plan: dialysis MWF decrease UF goal replete phos
--- NOTE | 2017-10-14 14:12 | CP.PCM.PN ---
Subjective - Date & Time of Evaluation Date of Evaluation: 10/14/17 Time of Evaluation: 08:40 - Subjective Subjective: patient seen and examined. 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 Objective - Vital Signs/Intake and Output Vital Signs (last 24 hours): Temp Pulse Resp BP Pulse Ox 98.6 F 118 H 18 71/38 L 100 10/14/17 12:50 10/14/17 12:50 10/14/17 12:50 10/14/17 12:50 10/14/17 12:50 Intake and Output: 10/14/17 10/14/17 06:59 18:59 Intake Total 1050 Balance 1050 - Medications Medications: Current Medications Acetylcysteine (Acetylcysteine 20%) 4 ml INH RQ6 [facility] Last Admin: 10/14/17 13:37 Dose: Not Given Apixaban (Eliquis) 2.5 mg PO BID [facility] Last Admin: 10/13/17 17:41 Dose: 2.5 mg Aspirin (Aspirin Chewable) 81 mg PO DAILY [facility] Last Admin: 10/13/17 10:04 Dose: 81 mg Epoetin Chencho (Procrit) 10,000 unit IV MWF [facility] Last Admin: 10/14/17 11:45 Dose: 10,000 unit Famotidine (Pepcid) 20 mg PO DAILY [facility] Last Admin: 10/13/17 10:04 Dose: 20 mg Cefepime HCl 1 gm/ Dextrose 50 mls @ 100 mls/hr IVPB Q24H [facility] Last Admin: 10/14/17 08:12 Dose: 100 mls/hr Ciprofloxacin (Cipro 200mg/100ml D5w) 100 mls @ 67 mls/hr IVPB Q12H [facility] Last Admin: 10/13/17 21:48 Dose: 67 mls/hr Aztreonam 1 gm/ Dextrose 50 mls @ 200 mls/hr IVPB Q24H [facility] Last Admin: 10/14/17 00:06 Dose: 200 mls/hr Fluconazole (Diflucan Iv 100 Mg/50 Ml Ns) 50 mls @ 100 mls/hr IVPB Q24H [facility] Insulin Detemir (Levemir) 8 unit SC AMHS [facility] Last Admin: 10/13/17 21:49 Dose: 8 unit Insulin Human Regular (Novolin R) 5 unit SC AC [facility] Last Admin: 10/14/17 08:13 Dose: 5 unit Insulin Human Regular (Novolin R) 0 unit SC ACHS [facility] PRN Reason: Protocol Last Admin: 10/14/17 08:13 Dose: 6 unit Lisinopril (Zestril) 5 mg PO DAILY [facility] Last Admin: 10/13/17 10:04 Dose: 5 mg Metoprolol Tartrate (Lopressor) 50 mg PO BID [facility] Last Admin: 10/13/17 17:41 Dose: 50 mg Potassium Phos/Sodium Phos (Neutra-Phos) 1 pkt PO TID [facility] Stop: 10/15/17 18:00 Rosuvastatin Calcium (Crestor) 10 mg PO HS [facility] Last Admin: 10/13/17 21:49 Dose: 10 mg Saccharomyces Boulardii (Florastor) 250 mg PO BID [facility] Last Admin: 10/13/17 17:40 Dose: 250 mg - Labs Labs: 10/14/17 07:03 10/14/17 07:03 PT 13.9 SECONDS (9.7-12.2) H 08/24/17 06:08 INR 1.2 08/24/17 06:08 APTT 55 SECONDS (21-34) H D 08/17/17 06:12 Assessment and Plan (1) Pneumonia Status: Acute (2) Cardiac arrest Status: Acute (3) History of DVT (deep vein thrombosis) Status: Acute (4) CKD (chronic kidney disease) Status: Chronic (5) Acute on chronic renal failure Status: Resolved (6) CHF (congestive heart failure) Status: Acute
[2017-10-14] MEDS: Saccharomyces Boulardi 250 mg Cap PO SCH ×2 (14:45→18:00)
[2017-10-14] MEDS: Potassium & Sodium Phosphate PO SCH ×2 (14:47→18:00)
[2017-10-14 15:31] LABS: ABG ALLEN TEST POS; DRAW SITE LRA
[2017-10-14 15:45] LABS: BASO # 0.1 K/uL (0.0-0.2); BASO % 0.3 % (0.0-2.0); EOS # 0.1 K/uL (0.0-0.7); EOS % 0.2 % (0.0-4.0); HEMATOCRIT 28.6 % (35.0-51.0); LYMPH # 2.3 K/uL (1.0-4.3); LYMPH % 6.9 % (20.0-40.0); MONO # 1.6 K/uL (0.0-0.8); MONO % 4.9 % (0.0-10.0); NRBC % 0.2 % (0.0-2.0); PLATELET COUNT 496 K/uL (130-400); RED CELL DISTRIBUTION WIDTH 26.1 % (11.5-14.5); WHITE BLOOD COUNT 33.4 K/uL (4.8-10.8)
--- NOTE | 2017-10-14 16:03 | CP.PCM.PN ---
Subjective - Date & Time of Evaluation Date of Evaluation: 10/14/17 Time of Evaluation: 04:00 - Subjective Subjective: dictated Objective - Vital Signs/Intake and Output Vital Signs (last 24 hours): Temp Pulse Resp BP Pulse Ox 98.6 F 118 H 18 71/38 L 100 10/14/17 12:50 10/14/17 12:50 10/14/17 12:50 10/14/17 12:50 10/14/17 12:50 Intake and Output: 10/14/17 10/14/17 06:59 18:59 Intake Total 1050 Balance 1050 - Medications Medications: Current Medications Acetylcysteine (Acetylcysteine 20%) 4 ml INH RQ6 [facility] Last Admin: 10/14/17 13:37 Dose: Not Given Apixaban (Eliquis) 2.5 mg PO BID [facility] Last Admin: 10/14/17 14:45 Dose: 2.5 mg Aspirin (Aspirin Chewable) 81 mg PO DAILY [facility] Last Admin: 10/14/17 14:45 Dose: 81 mg Epoetin Chencho (Procrit) 10,000 unit IV MWF [facility] Last Admin: 10/14/17 11:45 Dose: 10,000 unit Famotidine (Pepcid) 20 mg PO DAILY [facility] Last Admin: 10/13/17 10:04 Dose: 20 mg Cefepime HCl 1 gm/ Dextrose 50 mls @ 100 mls/hr IVPB Q24H [facility] Last Admin: 10/14/17 08:12 Dose: 100 mls/hr Ciprofloxacin (Cipro 200mg/100ml D5w) 100 mls @ 67 mls/hr IVPB Q12H [facility] Last Admin: 10/13/17 21:48 Dose: 67 mls/hr Aztreonam 1 gm/ Dextrose 50 mls @ 200 mls/hr IVPB Q24H [facility] Last Admin: 10/14/17 00:06 Dose: 200 mls/hr Fluconazole (Diflucan Iv 100 Mg/50 Ml Ns) 50 mls @ 100 mls/hr IVPB Q24H [facility] Insulin Detemir (Levemir) 8 unit SC AMHS [facility] Last Admin: 10/13/17 21:49 Dose: 8 unit Insulin Human Regular (Novolin R) 5 unit SC AC [facility] Last Admin: 10/14/17 14:45 Dose: 5 unit Insulin Human Regular (Novolin R) 0 unit SC ACHS [facility] PRN Reason: Protocol Last Admin: 10/14/17 14:46 Dose: 3 unit Lisinopril (Zestril) 5 mg PO DAILY [facility] Last Admin: 10/13/17 10:04 Dose: 5 mg Metoprolol Tartrate (Lopressor) 50 mg PO BID [facility] Last Admin: 10/13/17 17:41 Dose: 50 mg Potassium Phos/Sodium Phos (Neutra-Phos) 1 pkt PO TID [facility] Stop: 10/15/17 18:00 Last Admin: 10/14/17 14:47 Dose: 1 pkt Rosuvastatin Calcium (Crestor) 10 mg PO HS [facility] Last Admin: 10/13/17 21:49 Dose: 10 mg Saccharomyces Boulardii (Florastor) 250 mg PO BID [facility] Last Admin: 10/14/17 14:45 Dose: 250 mg - Labs Labs: 10/14/17 15:42 10/14/17 07:03 PT 13.9 SECONDS (9.7-12.2) H 08/24/17 06:08 INR 1.2 08/24/17 06:08 APTT 55 SECONDS (21-34) H D 08/17/17 06:12
[2017-10-14 16:25] LABS: NEUTROPHIL 87 % (50-75); TOTAL CELLS COUNTED 100
--- NOTE | 2017-10-14 16:25 | CP.PCM.PN ---
<Sina White - Last Filed: 10/14/17 20:18> Subjective - Date & Time of Evaluation Date of Evaluation: 10/14/17 Time of Evaluation: 16:25 - Subjective Subjective: Patient was seen and examined dialysis today had a fever, was less responsive, tachycardic, and hypotensive. [employer] [employer] was called Objective - Vital Signs/Intake and Output Vital Signs (last 24 hours): Temp Pulse Resp BP Pulse Ox 98.6 F 118 H 18 71/38 L 100 10/14/17 12:50 10/14/17 12:50 10/14/17 12:50 10/14/17 12:50 10/14/17 12:50 Intake and Output: 10/14/17 10/14/17 06:59 18:59 Intake Total 1050 Balance 1050 - Medications Medications: Current Medications Acetylcysteine (Acetylcysteine 20%) 4 ml INH RQ6 [facility] Last Admin: 10/14/17 13:37 Dose: Not Given Apixaban (Eliquis) 2.5 mg PO BID [facility] Last Admin: 10/14/17 14:45 Dose: 2.5 mg Aspirin (Aspirin Chewable) 81 mg PO DAILY [facility] Last Admin: 10/14/17 14:45 Dose: 81 mg Epoetin Chencho (Procrit) 10,000 unit IV MWF [facility] Last Admin: 10/14/17 11:45 Dose: 10,000 unit Famotidine (Pepcid) 20 mg PO DAILY [facility] Last Admin: 10/13/17 10:04 Dose: 20 mg Cefepime HCl 1 gm/ Dextrose 50 mls @ 100 mls/hr IVPB Q24H [facility] Last Admin: 10/14/17 08:12 Dose: 100 mls/hr Aztreonam 1 gm/ Dextrose 50 mls @ 200 mls/hr IVPB Q24H [facility] Last Admin: 10/14/17 00:06 Dose: 200 mls/hr Fluconazole (Diflucan Iv 100 Mg/50 Ml Ns) 50 mls @ 100 mls/hr IVPB Q24H [facility] Insulin Detemir (Levemir) 8 unit SC AMHS [facility] Last Admin: 10/13/17 21:49 Dose: 8 unit Insulin Human Regular (Novolin R) 5 unit SC AC [facility] Last Admin: 10/14/17 14:45 Dose: 5 unit Insulin Human Regular (Novolin R) 0 unit SC ACHS [facility] PRN Reason: Protocol Last Admin: 10/14/17 14:46 Dose: 3 unit Linezolid (Zyvox) 600 mg PO BID [facility] Lisinopril (Zestril) 5 mg PO DAILY [facility] Last Admin: 10/13/17 10:04 Dose: 5 mg Metoprolol Tartrate (Lopressor) 50 mg PO BID [facility] Last Admin: 10/13/17 17:41 Dose: 50 mg Potassium Phos/Sodium Phos (Neutra-Phos) 1 pkt PO TID [facility] Stop: 10/15/17 18:00 Last Admin: 10/14/17 14:47 Dose: 1 pkt Rosuvastatin Calcium (Crestor) 10 mg PO HS [facility] Last Admin: 10/13/17 21:49 Dose: 10 mg Saccharomyces Boulardii (Florastor) 250 mg PO BID [facility] Last Admin: 10/14/17 14:45 Dose: 250 mg - Labs Labs: 10/14/17 15:42 PT 13.9 SECONDS (9.7-12.2) H 08/24/17 06:08 INR 1.2 08/24/17 06:08 APTT 55 SECONDS (21-34) H D 08/17/17 06:12 - Additional Findings Additional findings: - Constitutional Appears: Well, No Acute Distress - Head Exam Head Exam: ATRAUMATIC, NORMOCEPHALIC - Eye Exam Eye Exam: EOMI - ENT Exam ENT Exam: Mucous Membranes Moist - Neck Exam Additional comments: Trach Collar - Respiratory Exam Respiratory Exam: Clear to Ausculation Bilateral - Cardiovascular Exam Cardiovascular Exam: REGULAR RHYTHM, +S1, +S2 - GI/Abdominal Exam GI & Abdominal Exam: Soft, Normal Bowel Sounds. absent: Distended, Tenderness - Back Exam Additional comments: 10cm x 10cm unstageable ulcer with healthy granulation tissue. No necrotic tissue. Optifoam dressing with medihoney. - Neurological Exam Neurological Exam: Alert, Awake - Psychiatric Exam Psychiatric exam: Normal Affect, Normal Mood Assessment and Plan - Assessment and Plan (Free Text) Assessment: ARDS, Cardiac Arrest, Pulmonary Edema, NSTEMI * Code Blue on 08/10: asystole, ROSC achieved. * Pulm (Rajesh) * Cards (Moo) * ASA 81 PO QD * Eliquis 2.5 PO BID * GI (Johann) * Tracheostomy 08/22 * Peg tube 08/25 Atrial flutter * Cards (Moo) * Eliquis 2.5mg PO bid Acute on Chronic Systolic CHF exacerbation * Cards (Moo) * Echocardiogram (08/08/17) EF: 25-30% * Medications: * Aspirin 81mg PO daily * Lopressor 50mg PO bid * Crestor 10mg POqHS Pneumonia * ID (Melinda) * Increased wbc with blood on trach collar * CXR 10/12/17 shows infiltrate * CXR 10/13/17 shows small right pleural effusion and left infiltrate * Consider HAP * Cipro 200 IV Q12 * Cefepime 1 IV QD * F/U Sputum Culture * F/U Blood cultures * F/U CXR * 10/14 patient had a fever, tachycardic and hypotensive after dialysis, rapid was called, ID was notified HTN * Lopressor 50mg PO bid * Lisinopril 5mg PO daily CKD * Nephro (Ruben) * Dialysis MWF * Permacath * Phoslo 1334mg GT TID * Epoetin 10,000 unit IV MWF Diabetes mellitus * Accuchecks Q6H * HgbA1c 8.4 * Regular 5 units AC * Levemir 8 units AMHS HLD * Crestor 10 mg PO HS Anemia * Heme([place]) * Ferric Sodium Gluconate 125mg IVPB * Procrit 10,000 units M-W- History of DVT * Eliquis 2.5mg PO BID Sacral Ulcer * Sacral ulcer * wound culture 10/12/17 - Enterobacter aerogenes * Cefepime 1 IV QD * Wound care * Turn q 2 hours * medihoney on unstageable ulcer * Prevalon Boots for Right Heal Blister * Surgery says continue current management Hx CAD * Cards (Moo) * Echocardiogram (08/08/17) EF: 25-30% * Medications: * Aspirin 81mg PO daily * Lopressor 50mg PO bid * Crestor 10mg PO Prophylactic measure * Pepcid 20mg PO daily <Mariangel Lazar V - Last Filed: 10/14/17 21:35> Objective - Vital Signs/Intake and Output Vital Signs (last 24 hours): Temp Pulse Resp BP Pulse Ox 102.3 F H 128 H 18 116/69 96 10/14/17 16:24 10/14/17 16:24 10/14/17 16:24 10/14/17 16:24 10/14/17 16:24 - Medications Medications: Current Medications Acetylcysteine (Acetylcysteine 20%) 4 ml INH RQ6 [facility] Last Admin: 10/14/17 13:37 Dose: Not Given Apixaban (Eliquis) 2.5 mg PO BID [facility] Last Admin: 10/14/17 14:45 Dose: 2.5 mg Aspirin (Aspirin Chewable) 81 mg PO DAILY [facility] Last Admin: 10/14/17 14:45 Dose: 81 mg Epoetin Chencho (Procrit) 10,000 unit IV MWF [facility] Last Admin: 10/14/17 11:45 Dose: 10,000 unit Famotidine (Pepcid) 20 mg PO DAILY [facility] Last Admin: 10/13/17 10:04 Dose: 20 mg Cefepime HCl 1 gm/ Dextrose 50 mls @ 100 mls/hr IVPB Q24H [facility] Last Admin: 10/14/17 08:12 Dose: 100 mls/hr Aztreonam 1 gm/ Dextrose 50 mls @ 200 mls/hr IVPB Q24H [facility] Last Admin: 10/14/17 00:06 Dose: 200 mls/hr Fluconazole (Diflucan Iv 100 Mg/50 Ml Ns) 50 mls @ 100 mls/hr IVPB Q24H [facility] Insulin Detemir (Levemir) 8 unit SC AMHS [facility] Last Admin: 10/13/17 21:49 Dose: 8 unit Insulin Human Regular (Novolin R) 5 unit SC AC [facility] Last Admin: 10/14/17 17:31 Dose: Not Given Insulin Human Regular (Novolin R) 0 unit SC ACHS [facility] PRN Reason: Protocol Last Admin: 10/14/17 17:30 Dose: Not Given Linezolid (Zyvox) 600 mg PO BID [facility] Lisinopril (Zestril) 5 mg PO DAILY [facility] Last Admin: 10/13/17 10:04 Dose: 5 mg Potassium Phos/Sodium Phos (Neutra-Phos) 1 pkt PO TID [facility] Stop: 10/15/17 18:00 Last Admin: 10/14/17 14:47 Dose: 1 pkt Rosuvastatin Calcium (Crestor) 10 mg PO HS [facility] Last Admin: 10/13/17 21:49 Dose: 10 mg Saccharomyces Boulardii (Florastor) 250 mg PO BID [facility] Last Admin: 10/14/17 14:45 Dose: 250 mg - Labs Labs: 10/14/17 15:42 10/14/17 15:42 PT 13.4 SECONDS (9.7-12.2) H 10/14/17 16:30 INR 1.2 10/14/17 16:30 APTT 28 SECONDS (21-34) 10/14/17 16:30 Attending/Attestation - Attestation I have personally seen and examined this patient.: Yes I have fully participated in the care of the patient.: Yes I have reviewed all pertinent clinical information, including history, physical exam and plan: Yes Notes (Text): Patient seen, examined, and case discussed with day-time resident. Patient is awake and alert, reactive during initial rounds. [employer] [employer] called later given hypotensive, more lethargic, after completing dialysis. Patient was febrile, leukocytosis, given 500 cc bolus given heart failure and esrd. Blood pressure improved. Blood work repeat at time of [employer]. Discussed case with ID at bedside, antibiotics adjusted. Ciprofloxocin d/c. Added for Diflucan , Zyvox and Aztrenoam. Patient has pneumonia and sacral decubitus. Patient had procalcitonin recently which showed elevated. Blood cultures repeated. Pending f/u prior blood cultures. Patient's sister was at bedside, explained that patient is fighting of infection from both pneumonia and sacral wound, nurse, Rachele at bedside helping to translate. Reviewed repeat labs with resident, called for critical care consult. Assessment/Plan (1) Acute Respiratory Failure ARDS Cardiac Arrest Pulmonary Edema Nonstemi Assessment and Plan: * Code Blue on 08/10: asystole, cardiopulmonary resuscitative measures initiated , requiring 3 epis, bicarbonate, ROSC achieved and intubated and brought to the ICU for further management; Patient in the ICU from 08/10 until present. * Pulmonary: Dr Mena (Dr. Jeffers covering until 09/04/17)-->help appreciated * Cardiology: Dr. Cortés on board-->help appreciated * GI (Dr. Wills) on board-->help appreciated * S/P Tracheostomy 08/22 * S/P Peg tube placement 08/25 * s/p insertion of right posterior chest tube 08/19-->removed 08/24/17 * Pass[place] Trach placed 09/15 * There was consideration for possible thoracentesis of left side pleural effusion, evaluated by IR, there is no fluid to drain per Dr. Gross * Chest xray (08/26): right arm PICC is seen with the tip of distal subclavian vein. PICC may be used * Chest Xray (09/20/17): lines and tubes stable position, left-sided pacemaker, moderate venous congestion, left basilar opacity with associated small left pleural effusion, Cardiomegaly. Prominent aorta, degenrative changes in spine and shoulders * Medications: * Acetylcysteine 20% 4ml INH RQ6H * Duoneb 3ml INH RQ6H * Aspirin 81mg PO daily * Eliquis 2.5mg PO bid * off Lopressor 50mg PO bid * Pulmonary and cardiology following * Pending pulmonary to determine when patient is stable for decannulation (2) Abnormal Stress Test History of AICD History of Coronary Artery Disease Assessment and Plan: * Cardiology (Dr. Cortés) on board-->help appreciated * TSH: 1.16; T4: 1.53 * Echocardiogram (08/08/17): left ventricle systolic function is severely impaired. EF: 25-30%; global hypokinesis of left ventricle mild aortic regurgitation. Mitral regurgitation is moderate. Moderate-severe pulmonary hypertension * Plan was for cardiac catheterization; delayed due to acute renal failure; Attempted gentle hydration and mucomyst on 08/09 to optimize prior to cath * On 08/10, patient was in asystole, ACLS protocol, ROSC achieved, intubated and transfered to the ICU. Patient in acute pulmonary edema. * Patient hospitalized and require to and from ICU twice during this admission * Cardiac cath postponed at this time * Medications: * Acetylcysteine 20% 4ml INH RQ6H * Duoneb 3ml INH RQ6H * Aspirin 81mg PO daily * Eliquis 2.5mg PO bid * off Lopressor 50mg PO bid given hypotension * Crestor 10mg POqHS * Lisinopril 5mg PO daily (3) Atrial flutter Assessment and Plan: * Cardiology (Dr. Cortés) on board-->help appreciated * Refractory to Lopressor/Cardizem IVP * c/w Eliquis 2.5mg PO bid * c/w Lopressor 50mg PO bid Status: Resolved (4) Acute on Chronic Systolic CHF exacerbation Assessment and Plan: * Cardiology (Dr. Cortés) on board-->help appreciated * Transferred to the ICU on 08/10 following cardiac arrest and intubation. * Echocardiogram (08/08/17): left ventricular systolic function is severely impaired. EF: 25-30%; global hypokinesis of left ventricle mild aortic regurgitation. Mitral regurgitation is moderate. Moderate-severe pulmonary hypertension * Medications: * Aspirin 81mg PO daily * Lopressor 50mg PO bid-->held 10/14/17 * Lisinopril 5mg PO daily * Crestor 10mg POqHS Status: Stable (5) Leukocytosis Assessment and Plan: * Increasing * Etiology: pneumonia, and sacral decub; patient has alot of secretions; nursing and respiratory are suctioning * Pleural Fluid 08/19/17 did not show any growth * Blood cultures (09/13): no growth X5 days X2 * Blood cultures (09/07) during dialysis: no growth X5 days X2 * UA and urine culture (08/27): Yeast Species. * UA and urine culture (09/13): Yeast Species. 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 * Sacral Ulcer (09/15/17): VRE and Reny Albicans * Sacral Ulcer (09/20/17): VRE and Reny Albicans * Sacral Ulcer (09/30/17): Enterobacter Aerogenes-->Sensitive Cefepime IV * Blood cultures (10/13/17): no growth for 24 hours X2 * Bone Scan performed 09/17/17 to check for Osteomyelitis at the Sacrum: negative for osteomyelitis * c/w Tigecycline (09/16/17): which will cover the VRE in Sacral Wound Culture 09/14/17 and repeat on 09/20/17--to finished 10/05/17 * c/w Diflucan 200 mg PO 1x/day (09/13/17; Day 20): which will cover with Yeast in the Sputum, Urine, and Sacral Wound Culture-->stopped on 10/06/17; restarted 10/14/17 * Procalcitionin: 8.60 (09/06/17)-->5.80 (09/20)-->2.86 (10/04)--->4.91 (10/12) * Per ID, Patient started on Cefepime 1 gram IV Q24H (active 10/12/17), Aztreonam 1 gram IV Q 24H (active since 10/13/17), and Zyvox 600mg PO BID ( active since 10/14/17) Status: Acute (6) Pneumonia Assessment and Plan: * Pulmonary (Dr. Mena) on board-->help appreciated * Infectious Disease (Dr. Lawrence)-->help appreciated * Rapid A strep, Influenza A and B studies, Urine Legionella, Mycoplasma studies = Negative * Florastor 250mg PO bid * 08/07/17: +Strep Pneumoniae in the urine * Meropenem 500mg IV Q 8 hours (08/14/17 through 08/18/17) and Zosyn 2.25 mg IV Q6H (08/13/17 through 08/18/17) * Cefepime 1 gm IV Q24H: started on 08/19/17 and was discontinued by ID Dr. Lawrence on 08/30/17: monitor vitals and labs * Restarted on 10/12/17 * s/p right posterior chest tube 08/19-08/24 * Sputum Culture 08/19/17 shows No growth * Pleural fluid 08/19/17: No growth * 09/07/17 Sputum: Enterocloace Bacter and Yeast Species: See Antibiotic treatment in previous Assessment and Plan * Sputum 09/10/17 shows NO AFB * Procalcitionin: 8.60 (09/06/17)-->5.80 (09/20)-->2.86 (10/04)--->4.91 (10/12) * Patient started on Cefepime 1 gram IV Q24H (active 10/12/17), Aztreonam 1 gram IV Q 24H (active since 10/13/17), and Zyvox 600mg PO BID (active since ) Status: Acute (7) HTN (hypertension) Assessment and Plan: * Lopressor 50mg PO bid * Lisinopril 5mg PO daily Status: Chronic (8) CKD (chronic kidney disease) on Dialysis Assessment and Plan: * Dr. Miranda (nephrology) consulted on the case * Hx of CKD-->Started on dialysis 08/15/17 * Kurtis catheter placed and removed 08/22 * s/p Right Chest Permcath 08/22 * Patient is on dialysis M-W-; oliguric * Phoslo 1334mg GT TID * Epoetin 10,000 unit IV MWF Status: Chronic (9) Diabetes mellitus Assessment and Plan: * Accuchecks Q6H * HgbA1c 8.4 * Started peg feedings on 08/26/17 * Levemir 8 unit AM and HS * Novolin R 5 unit AC (10) HLD (hyperlipidemia) Assessment and Plan: * LFTS have normalized; will restart statin 09/20/17 * Crestor 10mg POqHS Status: Chronic (11) Anemia Assessment and Plan: * Heme-oncology (Dr. Giles bender) on board-->help appreciated * Likely iron deficiency anemia based on prior admissions * Ferritin 27.4, Iron 22, TIBC 322, % Saturation 7 * Ferric Sodium Gluconate 125mg IVPB daily (active 08/08-08/16) * Procrit 10,000 units -- * Monitor Hgb/Hct: stable Status: Chronic (12) History of DVT (deep vein thrombosis) Assessment and Plan: * Patient was previously on Eliquis for a prior history of DVT. * Repeat dopplers 08/09/17 are negative for DVT * Off Heparin Drip 08/17/17 * Started Eliquis 2.5mg PO BID for atrial flutter and history of DVT Status: Chronic (13) UTI Assessment and Plan: * Infectious disease (Dr. Lawrence) on board-->help appreciated * Exchange jaquez out and repeat urine cultures * Urine Culture 08/12/17 showed Gram Negative Rods: NO identification and NO sensitivities were performed * Meropenem 500mg IV Q 12hours (active since 08/14/17 through 08/18/17) to cover for UTI per ID * Repeat Urine Culture 08/18/17 shows NO growth * 08/25: reculture in light of leukocytosis * 08/27: pending urine studies * 08/30: Urine Culture 08/27/17 showed Yeast Species but no antifungal at that time secondary to recent history of Elevated LFTs * Urine Culture 09/13/17 showed Yeast Species: completed Diflucan on 10/06/17 * Urine culture (10/06/17): No growth Status: Chronic (14) Confusion; Alzheimer's Dementia Assessment and Plan: * Per daughter, patient has been getting bouts of confusion over the past year but appears at baseline. Patient has not seen formal neurology as outpatient per daughter. Per , prior to event, noted Alzheimers' disease dx one year ago * CT head w/o contrast (08/10/17):acute os subacute lacune infarct is not excluded in the left basal ganglia inferiorly with definitive chronic lacune identified in the right basal ganglia superiorly. No acute or subacute lobar brain infarction is appreciable by standard CT criteria. Mild age-related neuro degenerative changes are identifed. No acute intracranial hemorrhage or mass is identified throughout * 08/26: Off Sedation-->patient moves all extremities randomly but does not follow directions * 08/27: off sedation-->patient is very calm, smiles at his * 08/28: off sedation-->patient is very calm * 10/14: [employer] [employer] for hypotension and lethargy; CT Head was repeated given patient is on Eliquis: * CT Head w/o contrast (10/14/17): no intracranial mass, hemorrhage, or evidence of acute infarct. 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 Old right external capsule ischemic change. Age related atrophy and chronic microvascular ischemic change Status: Chronic (15) Unstageable Sacral Ulcer, Left Ear Auricle Ulcer, Right Heal Ulcer Assessment and Plan: * Wound care on board * WOUND CARE [id number] patients sacral ulcer. Base softening up. Must continue medi-honey (nickel thick) then cover with a bordered dressing to be done daily. Patient must be repositioned frequently to optimize offloading of sacral region. Right heel is dark purple in color. Must continue to elevate both heels at all times to optimize heel offloading. Hemoglobin-9.6, Marshal of 14. Patient continues to be at risk for skin breakdown. will continue to follow. 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 * Sacral Ulcer (09/15/17): VRE and Reny Albicans * Sacral Ulcer (09/20/17): VRE and Reny Albicans * Sacral Ulcer (09/30/17): Enterobacter Aerogenes-->Sensitive Cefepime IV * Bone Scan performed 09/17/17 to check for Osteomyelitis at the Sacrum: negative for osteomyeliti * Daily wound care and dressing change by medicine team; healing appropriately Antibiotics * c/w Tigecycline (09/16/17: which will cover the VRE in Sacral Wound Culture and repeat on 09/20/17-->PER ID, d/c 10/15/17 * c/w Diflucan 200 mg PO 1x/day (09/13/17; Day 20): which will cover with Yeast in the Sputum, Urine, and Sacral Wound Culture--> PER ID, D/c 10/06/17; restarted on 10/14/17 * Procalcitionin: 8.60 (09/06/17)-->5.80 (09/20)-->2.86 (10/04)--->4.91 (10/12) * Patient started on Cefepime 1 gram IV Q24H (active 10/12/17), Aztreonam 1 gram IV Q 24H (active since 10/13/17), and Zyvox 600mg PO BID (active since ) Status: Acute (16) Elevated LFTs Assessment and Plan: * Have normalized * Currently off Diflucan since 10/06/17; restart 10/14/17 * Crestor 10mg POqHS (17). Hx Constipation * Monitor bowel movement (18). Hyponatremia-->resolved (19). Prophylactic measure Assessment and Plan: * Pepcid 20mg PO daily * Start Eliquis 2.5mg PO BID * s/p peg placement 08/25 * s/p trachesostomy 08/22 * s/p Permcath placement 08/22 removal Kurtis catheter * s/p right posterior chest tube 08/19-->removed 08/24 * s/p Right Arm PICC 08/26 * Passy Flex Trach placed 09/15 * (Jovita Serrano): -->number provided to the nurse- ->consented for peg placement; discussed about LTAC 08/26 * Spoke with Dr. Pickard, MARIAJOSE regarding patient's hospitalization up until 08/26 Disposition: * Discussed with case management and social service director, working with patient's family and insurance to determine placement. Ongoing talks. Patient will also need dialysis placement. * Patient was [facility] [employer] [facility] today for hypotensive and worsening lethargy. Patient seen, re -evaluated with [employer] [employer] team and ID, patient's ABG w shock, normal lactate, and mildy alkalotic. patient completed dialysis earlier. patient's white count and is amounting a fever. Patient is being treated for pneumonia and sacral decub. Patient has heel eschar as well that needs to be monitor. Infectious disease adjusted medications Patient started on Cefepime 1 gram IV Q24H (active 10/12/17 ), Aztreonam 1 gram IV Q 24H (active since 10/13/17), and Zyvox 600mg PO BID ( active since 10/14/17) * Critical care consult given patient is sepsis likely due to those sources described above.
[2017-10-14 16:41] LABS: INR 1.2
[2017-10-14 16:52] LABS: ERYTHROCYTE SEDIMENTATION RATE 117 mm/hr (0-15)
--- NOTE | 2017-10-14 17:18 | CT ---
PROCEDURE: CT HEAD WITHOUT CONTRAST. HISTORY: ams COMPARISON: 08/10/2017 TECHNIQUE: Axial computed tomography images were obtained through the head/brain without intravenous contrast. Radiation dose: Total exam DLP = 976.49 mGy-cm. This CT exam was performed using one or more of the following dose reduction techniques: Automated exposure control, adjustment of the mA and/or kV according to patient size, and/or use of iterative reconstruction technique. FINDINGS: HEMORRHAGE: No intracranial hemorrhage. BRAIN: No intracranial mass. No intracranial mass. There is a small old right inferior cerebellar hemispheric infarct. There is a 2nd larger remote right cerebellar hemispheric infarct. . Remote right external capsule ischemic change. . . Mild to moderate diffuse cerebral atrophy. Moderate chronic periventricular white matter lucency consistent with microvascular ischemic change. . VENTRICLES: Unremarkable. No hydrocephalus. CALVARIUM: Unremarkable. PARANASAL SINUSES: Chronic bilateral maxillary sinusitis with mucoperiosteal thickening and some calcification of the mucoperiosteal thickening likely related to chronicity. This was seen on prior examination as well. MASTOID AIR CELLS: Small nonspecific right mastoid effusion. OTHER FINDINGS: None. IMPRESSION: No intracranial mass, hemorrhage or evidence of acute infarct. 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 Old right external capsule ischemic change. Age related atrophy and chronic microvascular ischemic change.
--- NOTE | 2017-10-14 17:23 | RAD ---
HISTORY: Sepsis Patient COMPARISON: Portable chest 10/13/2017. FINDINGS: Tracheostomy tube and tunneled right central venous dialysis catheter unchanged in position. Mid and PICC is again identified stable as well as pacemaker device. LUNGS: Linear atelectasis is seen at the inferior right lung zone somewhat increased with limited medial basilar patchy density unchanged. An increase in left basilar airspace disease evident at the retrocardiac space. PLEURA: Trace of pleural effusion not excluded. None is seen the right. No pneumothorax bilaterally. CARDIOVASCULAR: Stable cardiomegaly. No pulmonary derangement identified. OSSEOUS STRUCTURES: No significant abnormalities. VISUALIZED UPPER ABDOMEN: Normal. OTHER FINDINGS: None. IMPRESSION: Interval increase in left basilar limited airspace disease with stable medial right basilar airspace changes again evident. Linear atelectasis slightly increased right base. Minimal left pleural effusion likely stable.
[2017-10-14] MEDS: Fluconazole IV 100mg/50 ml NS 50 ML IVPB SCH (19:00)
--- NOTE | 2017-10-14 21:40 | CP.PCM.PN ---
Subjective - Date & Time of Evaluation Date of Evaluation: 10/14/17 Time of Evaluation: 08:05 - Subjective Subjective: Patient seen and evaluated No cardiac events noted Awaiting placement Physical Examination - Constitutional Appears: Chronically Ill - Head Exam Head Exam: ATRAUMATIC, NORMAL INSPECTION, NORMOCEPHALIC - Eye Exam Eye Exam: EOMI Pupil Exam: NORMAL ACCOMODATION - ENT Exam ENT Exam: Mucous Membranes Moist - Neck Exam Additional comments: trach - Respiratory Exam Respiratory Exam: Clear to Ausculation Bilateral, NORMAL BREATHING PATTERN - Cardiovascular Exam Cardiovascular Exam: REGULAR RHYTHM - GI/Abdominal Exam GI & Abdominal Exam: Soft, Normal Bowel Sounds. absent: Distended, Tenderness - Extremities Exam Extremities Exam: absent: Joint Swelling, Tenderness - Back Exam Additional comments: 10x10 unstageable ulcer with healthy granulation tissue. No necrotic tissue. optifoam dressing with medihoney. Clear dry and intact - Neurological Exam Neurological Exam: Alert, Awake - Psychiatric Exam Psychiatric exam: Normal Affect, Normal Mood - Skin Skin Exam: Dry, Intact, Normal Color, Warm Objective - Vital Signs/Intake and Output Vital Signs (last 24 hours): Temp Pulse Resp BP Pulse Ox 102.3 F H 128 H 18 116/69 96 10/14/17 16:24 10/14/17 16:24 10/14/17 16:24 10/14/17 16:24 10/14/17 16:24 - Medications Medications: Current Medications Acetylcysteine (Acetylcysteine 20%) 4 ml INH RQ6 [facility] Last Admin: 10/14/17 13:37 Dose: Not Given Apixaban (Eliquis) 2.5 mg PO BID [facility] Last Admin: 10/14/17 14:45 Dose: 2.5 mg Aspirin (Aspirin Chewable) 81 mg PO DAILY [facility] Last Admin: 10/14/17 14:45 Dose: 81 mg Epoetin Chencho (Procrit) 10,000 unit IV MWF [facility] Last Admin: 10/14/17 11:45 Dose: 10,000 unit Famotidine (Pepcid) 20 mg PO DAILY [facility] Last Admin: 10/13/17 10:04 Dose: 20 mg Cefepime HCl 1 gm/ Dextrose 50 mls @ 100 mls/hr IVPB Q24H [facility] Last Admin: 10/14/17 08:12 Dose: 100 mls/hr Aztreonam 1 gm/ Dextrose 50 mls @ 200 mls/hr IVPB Q24H [facility] Last Admin: 10/14/17 00:06 Dose: 200 mls/hr Fluconazole (Diflucan Iv 100 Mg/50 Ml Ns) 50 mls @ 100 mls/hr IVPB Q24H [facility] Insulin Detemir (Levemir) 8 unit SC AMHS [facility] Last Admin: 10/13/17 21:49 Dose: 8 unit Insulin Human Regular (Novolin R) 5 unit SC AC [facility] Last Admin: 10/14/17 17:31 Dose: Not Given Insulin Human Regular (Novolin R) 0 unit SC ACHS [facility] PRN Reason: Protocol Last Admin: 10/14/17 17:30 Dose: Not Given Linezolid (Zyvox) 600 mg PO BID [facility] Lisinopril (Zestril) 5 mg PO DAILY [facility] Last Admin: 10/13/17 10:04 Dose: 5 mg Potassium Phos/Sodium Phos (Neutra-Phos) 1 pkt PO TID [facility] Stop: 10/15/17 18:00 Last Admin: 10/14/17 14:47 Dose: 1 pkt Rosuvastatin Calcium (Crestor) 10 mg PO HS [facility] Last Admin: 10/13/17 21:49 Dose: 10 mg Saccharomyces Boulardii (Florastor) 250 mg PO BID [facility] Last Admin: 10/14/17 14:45 Dose: 250 mg - Labs Labs: 10/14/17 15:42 10/14/17 15:42 PT 13.4 SECONDS (9.7-12.2) H 10/14/17 16:30 INR 1.2 10/14/17 16:30 APTT 28 SECONDS (21-34) 10/14/17 16:30 Assessment and Plan - Assessment and Plan (Free Text) Assessment: Assessment and Plan - Assessment and Plan (Free Text) Assessment: Atrial Fibrillation Intermittent Rate controlled. On Metoprolol 50 mg PO BID, Eliquis 2.5 mg PO BID CAD, chest pain -No current plans for cardiac cath (acute respiratory failure and elevated Cr) , history of abnormal stress test -Elevated Troponin likely due to chest compressions during cardiac arrest 08/10 -No acute ST changes on EKG -Continue ASA, Crestor, Metoprolol. -Echocardiogram from 08/08/17 showed left ventricle systolic function is severely impaired. EF: 25-30%; global hypokinesis of LV mild AR. MR is moderate. Moderate-severe pulmonary hypertension Systolic CHF exacerbation -CXR 09/09: Diminished bilateral basilar airspace disease; stable cardiomegaly -BNP 43702 on 08/06/17 -Continue ASA, Crestor, Metoprolol -Echocardiogram from 08/08/17 showed left ventricle systolic function is severely impaired. EF: 25-30%; global hypokinesis of LV mild AR. MR is moderate. Moderate-severe pulmonary hypertesnion Dobutamine discontinued in light of atrial flutter-type episodes Diabetes Mellitus ISS Continue to monitor ESRD on HD Currently on HD On Procrit and Phoslo Nephro on the case Prophylaxis Pepcid 20 mg PO daily Eliquis 2.5 mg PO BID (Renal precautions) Disposition Awaiting Transfer to LTAC
[2017-10-14] MEDS: Insulin Detemir 100 units/ml Vial (Levemir) SC SCH (22:18)
--- NOTE | 2017-10-14 22:18 | PCM.RRT ---
<Sina White - Last Filed: 10/16/17 18:35> ASSET ADMINISTRATOR Nurses Assessment - Situation Date: 10/14/17 Time ASSET ADMINISTRATOR was called: 15:08 ASSET ADMINISTRATOR Responder Arrival Time:: 15:09 ASSET ADMINISTRATOR Location:: Med/Surg Room Number: 552B ASSET ADMINISTRATOR Reason for Call: Change in Mental Status ASSET ADMINISTRATOR Called By: RN - IV IV Inserted during ASSET ADMINISTRATOR?: Yes IV Fluids Initiated During ASSET ADMINISTRATOR?: fluid bolus 0.9 NS New IV Insertion Tolerance: Excellent - Respiratory ASSET ADMINISTRATOR Delivery Method: Trach Collar @% Oxygen Flow Rate: 40 Received Nebulizer Treatments: No Was the Patient Ventilated with Bag/Mask 100% O2?: No Secretions Suctioned?: Yes Was the Patient Intubated?: No Was the Patient Placed on a Ventilator?: No - Ventilator Settings SAO2 %: 98 - Medication Medications Administered During ASSET ADMINISTRATOR: None - Diagnostic Test Ordered Chest X-Ray: Yes CT Scan: Yes (head CT) - Stat Labs Ordered ASSET ADMINISTRATOR Stat Labs Ordered: CBC, BMP, PT/PTT, LACTIC ACID, BLOOD C&S X2, ABG CPR started during ASSET ADMINISTRATOR?: No - Vital Signs Vital Signs: Rapid Response Vital Sign Blood Pressure 84/42 Pulse Rate 120 Respiratory Rate 20 Temperature 100.0 F Oxygen Saturation 100 - Shandon Coma Scale Coma Scale Eye Opening: To pain Coma Scale Verbal: No response - Sepsis Screen Part 1 Sepsis Screen Part 1: Hypotensive - Sepsis Screen Part 2 Sepsis Screen Part 2: Glucose elevated, Pt not on steroids, WBC over 12,000 - Time ASSET ADMINISTRATOR Ended Time ASSET ADMINISTRATOR Ended: 15:40 - Vital Signs at end of ASSET ADMINISTRATOR Vital Signs at end of ASSET ADMINISTRATOR: Rapid Response End Vital Sign Blood Pressure 102/47 Pulse Rate 117 Respiratory Rate 20 Temperature 100.0 F O2 Sat by Pulse Oximetry 100 - Recommendations 5) ASSET ADMINISTRATOR Level of Care Recommendations: Transfer to ICU Notifications: Attending Physician - Respiratory Oxygen Delivery Method: Trach Collar @% Oxygen Flow Rate: 40 <Mariangel Lazar V - Last Filed: 10/16/17 21:19> ASSET ADMINISTRATOR Nurses Assessment - Vital Signs Vital Signs: Rapid Response Vital Sign Blood Pressure 84/42 Pulse Rate 120 Respiratory Rate 20 Temperature 100.0 F Oxygen Saturation 100 - Vital Signs at end of ASSET ADMINISTRATOR Vital Signs at end of ASSET ADMINISTRATOR: Rapid Response End Vital Sign Blood Pressure 102/47 Pulse Rate 117 Respiratory Rate 20 Temperature 100.0 F O2 Sat by Pulse Oximetry 100 Attending/Attestation - Attestation I have personally seen and examined this patient.: Yes I have fully participated in the care of the patient.: Yes I have reviewed all pertinent clinical information, including history, physical exam and plan: Yes Notes (Text): This is late computer entry for 10/14/17. Brief Hospitalist Note: Called for hypotension, unresponsiveness. Patient well known to me seen earlier in the day. Patient is more lethargic, usually will move upper extremities and smile, but is currently not doing these motions. Patient's white count up trending. patient order 500 NS bolus X1. Patient finished dialysis earlier. patient is normally hypotensive but does not look lethargic compared to now. Patient's blood cultures, urine studies, and chest xray. ID seen patient at bedside. ID changed antibiotics recently to start Diflucan IV , Aztreonam IV, Cefepime IV, and Zyvox. ABG with shocked ordered: patient is not acidotix; lactate acid: 1.2 Advised nurse to check blood pressure every 30 minutes. Placed for ICU consult following repeat labs drawn at the [facility]. Increased leukocytosis; fever, source of infections: pneumonia and sacral decub which are known. Patient sister at bedside, explained, and answered questions. At [facility]; ICU nurse, Magali; Resident Cindy PGY-1, Rachele and Veronica, 5S Nursing present. ID present as well.
--- NOTE | 2017-10-14 23:04 | PN ---
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 After the SNOW REMOVING SUPERVISOR, he was not intubated, but he has lot of secretions. The nurse is going to send a sputum sample. He has been on multiple antibiotics and he still has lot of secretions. He just came back from hemodialysis, I am told. PHYSICAL EXAMINATION: VITAL SIGNS: He had a temperature of 102 now, heart rate of 128, blood pressure 116/69, respirations are 18. Septic workup is again ordered. We will also order a stool for C. diff. He is in isolation and his eyes were closed. He has a PICC line, so the question came up if there could be a PICC line sepsis and he still has lot of secretions. He has a trach. NECK: Supple. LUNGS: Has bilateral rhonchi. HEART: S1 and S2, tachycardic. ABDOMEN: PEG site is unremarkable. He has a right-sided dialysis catheter. EXTREMITIES: Improving with less edema and sacral area has a huge decubitus. LABORATORY DATA: After the SNOW REMOVING SUPERVISOR, the white count is 33.4, hemoglobin 8.9, hematocrit 28.6, platelet count is 496. They did an ABG, which shows 7.58, CO2 is 31.9. Potassium is 3.9, glucose is 275. His lactate level is 1.2, so the white count went up further. MEDICATIONS: He is on acetylcysteine, which is just started, Eliquis, aspirin, we left him on his and cefepime. He is on Procrit, Pepcid, fluconazole. The doses of these are small hence we are giving two drugs. I just ordered linezolid and Zyvox through the PEG. I also ordered stool for clostridium difficile and sputum as his white count has gone up, we will follow. X-ray was just done today and the x-ray shows increase in basilar limited air space disease with stable medial right basilar air space changes, again evident linear atelectasis slightly increased right base, minimal left effusion likely. So there are some increased markings in the lungs and should rule out anymore pneumonia. We have ordered gram positive coverage more, also to cover for vancomycin-resistant enterococcus, which was in the back and we will follow. Prognosis remains guarded and to repeat the labs tomorrow. We will follow. Allan Lawrence MD
[2017-10-15] MEDS: Acetylcysteine 20% Inhal Soln (4ml) INH SCH ×4 (02:11→19:23)
--- NOTE | 2017-10-15 02:11 | CP.PCM.CON ---
History of Present Illness - History of Present Illness History of Present Illness: Attending: Gloria August MD Reason for consult : Critical care management Chief complaint: Altered Mental status/Hypotension HPI: The Hx is obtained from the Resident, nurse and after review of the medical chart. This is a 77 years old male with hx of DM II, CKD, Dementia and Permanent Pacemaker. He is transferred to the ICU unit after a rapid response where he was found unresponsive, with a SBP of 84/42mmHgand difficulty to arouse and with an elevated WBC. This patient was initially admitted to the [facility] on with Pneumonia and chest pain; Intubatyed on 08/11/17 after a Code blue. A Right chest tube was inserted on 08/19/17 because of large pleural effusion and removed on 08/24/17. A Tracheostomy tube on 08/22 because of prolonged oropharyngeal intubation. PEG on 08/25/17 and Right branchial PICC line inserted on 08/26/17 and now on Hemodialysis. Rapid Response Team was called because of non responsiveness, Hypotension, Tachycardia and tito with an increasingf WBC. Decision was made to transfer the patient to the 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 live with family FH: Mother- DM and Vaginal cancer Father- [place] Allergies: NKDA Medication: Reviewed Review of Systems - Review of Systems Review of Systems: Review of systems limited because of the patient's condition being lethargic. Past Patient History - Infectious Disease Hx of Infectious Diseases: None - Past Medical History & Family History Past Medical History?: Yes - Past Social History Smoking Status: Never Smoked Chewing Tobacco Use: No Cigar Use: No Alcohol: None Drugs: Denies Home Situation {Lives}: With Family - CARDIAC Hx Congestive Heart Failure: Yes Hx Hypertension: Yes - PULMONARY Hx Asthma: Yes - RENAL Hx Chronic Kidney Disease: Yes (REANAL INSUFFICIENCY) Hx Kidney Stones: Yes - ENDOCRINE/METABOLIC Hx Diabetes Mellitus Type 2: Yes - MUSCULOSKELETAL/RHEUMATOLOGICAL Hx Arthritis: Yes - GENITOURINARY/GYNECOLOGICAL Hx Genitourinary Disorders: Yes Hx Prostate Problems: Yes (ELEVATED PSA) - PSYCHIATRIC Hx Anxiety: Yes Hx Depression: Yes Hx Substance Use: No - SURGICAL HISTORY Hx Surgeries: Yes Other/Comment: pacemaker on - ANESTHESIA Hx Anesthesia: Yes Hx Anesthesia Reactions: No Hx Malignant Hyperthermia: No Meds Allergies/Adverse Reactions: Allergies Allergy/AdvReac Type Severity Reaction Status Date / Time No Known Allergies Allergy Verified 08/06/17 13:20 - Medications Medications: Current Medications Acetylcysteine (Acetylcysteine 20%) 4 ml INH RQ6 [facility] Last Admin: 10/14/17 13:37 Dose: Not Given Apixaban (Eliquis) 2.5 mg PO BID [facility] Last Admin: 10/14/17 18:00 Dose: Not Given Aspirin (Aspirin Chewable) 81 mg PO DAILY [facility] Last Admin: 10/14/17 14:45 Dose: 81 mg Epoetin Chencho (Procrit) 10,000 unit IV MWF [facility] Last Admin: 10/14/17 11:45 Dose: 10,000 unit Famotidine (Pepcid) 20 mg PO DAILY [facility] Last Admin: 10/13/17 10:04 Dose: 20 mg Cefepime HCl 1 gm/ Dextrose 50 mls @ 100 mls/hr IVPB Q24H [facility] Last Admin: 10/14/17 08:12 Dose: 100 mls/hr Aztreonam 1 gm/ Dextrose 50 mls @ 200 mls/hr IVPB Q24H [facility] Last Admin: 10/14/17 00:06 Dose: 200 mls/hr Fluconazole (Diflucan Iv 100 Mg/50 Ml Ns) 50 mls @ 100 mls/hr IVPB Q24H [facility] Last Admin: 10/14/17 19:00 Dose: Not Given Insulin Detemir (Levemir) 8 unit SC AMHS [facility] Last Admin: 10/14/17 22:18 Dose: Not Given Insulin Human Regular (Novolin R) 5 unit SC AC [facility] Last Admin: 10/14/17 17:31 Dose: Not Given Insulin Human Regular (Novolin R) 0 unit SC ACHS [facility] PRN Reason: Protocol Last Admin: 10/14/17 22:19 Dose: Not Given Linezolid (Zyvox) 600 mg PO BID [facility] Last Admin: 10/14/17 18:00 Dose: Not Given Lisinopril (Zestril) 5 mg PO DAILY [facility] Last Admin: 10/13/17 10:04 Dose: 5 mg Potassium Phos/Sodium Phos (Neutra-Phos) 1 pkt PO TID [facility] Stop: 10/15/17 18:00 Last Admin: 10/14/17 18:00 Dose: Not Given Rosuvastatin Calcium (Crestor) 10 mg PO HS [facility] Last Admin: 10/14/17 22:17 Dose: Not Given Saccharomyces Boulardii (Florastor) 250 mg PO BID [facility] Last Admin: 10/14/17 18:00 Dose: Not Given Physical Exam - Constitutional Appears: In Acute Distress - Head Exam Head Exam: ATRAUMATIC, NORMAL INSPECTION, NORMOCEPHALIC - Eye Exam Additional comments: Eyes closed, no spontaneous opening. Pupils equal 3mm - ENT Exam ENT Exam: Normal External Ear Exam - Neck Exam Neck exam: Positive for: Normal Inspection. Negative for: Lymphadenopathy, Tenderness - Respiratory Exam Additional comments: Course crackles diffuse at both lung buchanan - Cardiovascular Exam Cardiovascular Exam: Irregular Rhythm, +S1, +S2 - GI/Abdominal Exam GI & Abdominal Exam: absent: Normal Bowel Sounds, Soft Additional comments: PEH tube at mid abdomen. - Rectal Exam Rectal Exam: Deferred - Extremities Exam Extremities exam: Positive for: joint swelling, normal inspection - Back Exam Back exam: NORMAL INSPECTION - Neurological Exam Additional comments: Patient lethargic with trach collar - Skin Skin Exam: Dry, Intact, Normal Color Results - Vital Signs Recent Vital Signs: Last Vital Signs Temp 99.6 F 10/15/17 00:02 Pulse 117 H 10/15/17 00:02 Resp 32 H 10/15/17 00:02 BP 90/44 L 10/15/17 00:02 Pulse Ox 97 10/15/17 00:02 - Labs Result Diagrams: 10/14/17 15:42 10/14/17 07:03 Labs: Laboratory Results - last 24 hr 10/14/17 10/14/17 10/14/17 02:39 06:44 07:03 WBC 25.7 H RBC 3.26 L Hgb 8.5 L Hct 28.0 L MCV 85.9 D MCH 26.0 L MCHC 30.2 L RDW 25.4 H Plt Count 477 H MPV 8.5 Neut % (Auto) 83.7 H Lymph % (Auto) 10.7 L Coffee % (Auto) 5.0 Eos % (Auto) 0.4 Baso % (Auto) 0.2 Neut # 21.5 H Lymph # 2.7 Coffee # 1.3 H Eos # 0.1 Baso # 0.1 Neutrophils % (Manual) Lymphocytes % (Manual) Monocytes % (Manual) Platelet Estimate Poikilocytosis (manual Anisocytosis (manual) Ovalocytes ESR PT INR APTT Puncture Site pCO2 pO2 HCO3 ABG pH ABG Total CO2 ABG O2 Saturation ABG Base Excess Uriel Test ABG Potassium A-a O2 Difference Respiratory Index Glucose Lactate FiO2 Sodium Potassium Chloride Carbon Dioxide Anion Gap BUN Creatinine Est GFR ( Amer) Est GFR (Non-Af Amer) POC Glucose (mg/dL) 389 H 325 H Random Glucose Calcium Phosphorus Magnesium Total Bilirubin AST ALT Alkaline Phosphatase Troponin I C-React Prot High Sens NT-Pro-B Natriuret Pep Total Protein Albumin Globulin Albumin/Globulin Ratio Procalcitonin Plasma Cortisol PM Arterial Blood Potassium 10/14/17 10/14/17 10/14/17 07:03 11:20 15:11 WBC RBC Hgb Hct MCV MCH MCHC RDW Plt Count MPV Neut % (Auto) Lymph % (Auto) Coffee % (Auto) Eos % (Auto) Baso % (Auto) Neut # Lymph # Coffee # Eos # Baso # Neutrophils % (Manual) Lymphocytes % (Manual) Monocytes % (Manual) Platelet Estimate Poikilocytosis (manual Anisocytosis (manual) Ovalocytes ESR PT INR APTT Puncture Site pCO2 pO2 HCO3 ABG pH ABG Total CO2 ABG O2 Saturation ABG Base Excess Uriel Test ABG Potassium A-a O2 Difference Respiratory Index Glucose Lactate FiO2 Sodium 136 Potassium 3.8 Chloride 96 L Carbon Dioxide 27 Anion Gap 16 BUN 78 H Creatinine 4.2 H Est GFR ( Amer) 17 Est GFR (Non-Af Amer) 14 POC Glucose (mg/dL) 247 H 242 H Random Glucose 386 H Calcium 8.2 L Phosphorus 1.4 L Magnesium 3.0 H Total Bilirubin 0.4 AST 61 H D ALT 55 Alkaline Phosphatase 131 H Troponin I C-React Prot High Sens NT-Pro-B Natriuret Pep Total Protein 7.2 Albumin 2.8 L Globulin 4.3 H Albumin/Globulin Ratio 0.6 L Procalcitonin Plasma Cortisol PM Arterial Blood Potassium 10/14/17 10/14/17 10/14/17 15:25 15:42 15:42 WBC 33.4 H RBC 3.41 L Hgb 8.9 L Hct 28.6 L MCV 84.0 MCH 26.0 L MCHC 31.0 L RDW 26.1 H Plt Count 496 H MPV 8.0 Neut % (Auto) 87.7 H Lymph % (Auto) 6.9 L Coffee % (Auto) 4.9 Eos % (Auto) 0.2 Baso % (Auto) 0.3 Neut # 29.3 H Lymph # 2.3 Coffee # 1.6 H Eos # 0.1 Baso # 0.1 Neutrophils % (Manual) 87 H Lymphocytes % (Manual) 5 L Monocytes % (Manual) 8 Platelet Estimate Slightly increased H Poikilocytosis (manual Slight Anisocytosis (manual) Slight Ovalocytes Slight ESR 117 H PT INR APTT Puncture Site Lra pCO2 33 L pO2 66 L HCO3 31.8 H ABG pH 7.58 H ABG Total CO2 31.9 H ABG O2 Saturation 97.9 ABG Base Excess 8.9 H Uriel Test Pos ABG Potassium 3.1 L A-a O2 Difference 142.0 Respiratory Index 2.2 Glucose 275 H Lactate 1.2 FiO2 35.0 Sodium 139.0 Cancelled Potassium Cancelled Chloride 106.0 Cancelled Carbon Dioxide Cancelled Anion Gap Cancelled BUN Cancelled Creatinine Cancelled Est GFR ( Amer) Cancelled Est GFR (Non-Af Amer) Cancelled POC Glucose (mg/dL) Random Glucose Cancelled Calcium Cancelled Phosphorus Cancelled Magnesium Cancelled Total Bilirubin Cancelled AST Cancelled ALT Cancelled Alkaline Phosphatase Cancelled Troponin I Cancelled C-React Prot High Sens NT-Pro-B Natriuret Pep Cancelled Total Protein Cancelled Albumin Cancelled Globulin Cancelled Albumin/Globulin Ratio Cancelled Procalcitonin Plasma Cortisol PM Arterial Blood Potassium 3.1 L 10/14/17 10/14/17 10/14/17 15:42 15:42 15:42 WBC RBC Hgb Hct MCV MCH MCHC RDW Plt Count MPV Neut % (Auto) Lymph % (Auto) Coffee % (Auto) Eos % (Auto) Baso % (Auto) Neut # Lymph # Coffee # Eos # Baso # Neutrophils % (Manual) Lymphocytes % (Manual) Monocytes % (Manual) Platelet Estimate Poikilocytosis (manual Anisocytosis (manual) Ovalocytes ESR PT INR APTT Puncture Site pCO2 pO2 HCO3 ABG pH ABG Total CO2 ABG O2 Saturation ABG Base Excess Uriel Test ABG Potassium A-a O2 Difference Respiratory Index Glucose Lactate FiO2 Sodium Potassium Chloride Carbon Dioxide Anion Gap BUN Creatinine Est GFR ( Amer) Est GFR (Non-Af Amer) POC Glucose (mg/dL) Random Glucose Calcium Phosphorus Magnesium Total Bilirubin AST ALT Alkaline Phosphatase Troponin I C-React Prot High Sens > 15.00 H NT-Pro-B Natriuret Pep Total Protein Albumin Globulin Albumin/Globulin Ratio Procalcitonin 4.72 H Plasma Cortisol PM 21.4 H Arterial Blood Potassium 10/14/17 10/14/17 10/14/17 16:22 16:30 21:00 WBC RBC Hgb Hct MCV MCH MCHC RDW Plt Count MPV Neut % (Auto) Lymph % (Auto) Coffee % (Auto) Eos % (Auto) Baso % (Auto) Neut # Lymph # Coffee # Eos # Baso # Neutrophils % (Manual) Lymphocytes % (Manual) Monocytes % (Manual) Platelet Estimate Poikilocytosis (manual Anisocytosis (manual) Ovalocytes ESR PT 13.4 H INR 1.2 APTT 28 Puncture Site pCO2 pO2 HCO3 ABG pH ABG Total CO2 ABG O2 Saturation ABG Base Excess Uriel Test ABG Potassium A-a O2 Difference Respiratory Index Glucose Lactate FiO2 Sodium Potassium Chloride Carbon Dioxide Anion Gap BUN Creatinine Est GFR ( Amer) Est GFR (Non-Af Amer) POC Glucose (mg/dL) 262 H 297 H Random Glucose Calcium Phosphorus Magnesium Total Bilirubin AST ALT Alkaline Phosphatase Troponin I C-React Prot High Sens NT-Pro-B Natriuret Pep Total Protein Albumin Globulin Albumin/Globulin Ratio Procalcitonin Plasma Cortisol PM Arterial Blood Potassium Assessment & Plan - Assessment and Plan (Free Text) Assessment: #. Sepsis with Pneumonia #. CKD #. Anemia #. Chronic Respiratory failure Plan: 77 years old male with hx of DM II, CKD, Dementia and Permanent Pacemaker, is transferred to the ICU unit after a rapid response where he was found unresponsive, with a SBP of 84/42mmHgand difficulty to arouse and with an elevated WBC. This patient was initially admitted to the [facility] on with Pneumonia and chest pain; Intubatyed on 08/11/17 after a Code blue. A Right chest tube was inserted on 08/19/17 because of large pleural effusion and removed on 9/27/17. A Tracheostomy tube on 08/22 because of prolonged oropharyngeal intubation. PEG on 08/25/17 and Right branchial PICC line inserted on 08/26/17 and now on Hemodialysis. Rapid Response Team was called because of non responsiveness, Hypotension, Tachycardia and fever with an increasingf WBC. Decision was made to transfer the patient to the [facility] for closer management #. Sepsis with Pneumonia - ID on consult - Pulmonary on consult - Azactam - Cefapime - Fluconazole -linezolid #. CKD on HD - Neophrology on consult #. Anemia - Hematology dr Crawford on consult #. Chronic Respiratory failure - Continue oxygenation using #. Stress ulcer prophyaxis with Pepcid #. DVT prophylaxis with SCD. The patient is on Apixaban #. Code Status: Full - Date & Time Date: 10/15/17 Time: 02:11
[2017-10-15 06:34] LABS: BASO # 0.1 K/uL (0.0-0.2); BASO % 0.1 % (0.0-2.0); HEMATOCRIT 28.8 % (35.0-51.0); LYMPH # 1.7 K/uL (1.0-4.3); LYMPH % 4.6 % (20.0-40.0); MEAN CELL VOLUME 85.6 fL (80.0-94.0); MEAN CORPUSCULAR HEMOGLOBIN 26.2 pg (27.0-31.0); MEAN CORPUSCULAR HGB CONC 30.6 g/dL (33.0-37.0); MEAN PLATELET VOLUME 8.3 fL (7.2-11.7); MONO # 1.7 K/uL (0.0-0.8); MONO % 4.5 % (0.0-10.0); PLATELET COUNT 460 K/uL (130-400); RED CELL DISTRIBUTION WIDTH 25.7 % (11.5-14.5); WHITE BLOOD COUNT 36.6 K/uL (4.8-10.8)
[2017-10-15 06:55] LABS: ALB/GLOB RATIO 0.7 (1.0-2.1); BILIRUBIN,TOTAL 0.7 mg/dL (0.2-1.3); CALCIUM 7.9 mg/dl (8.6-10.4); MAGNESIUM 2.3 mg/dL (1.6-2.3); PHOSPHOROUS 2.7 mg/dL (2.5-4.5); POTASSIUM 4.2 mmol/L (3.6-5.2); TOTAL PROTEIN 7.7 g/dL (6.3-8.3)
[2017-10-15] MEDS: (Novolin R) Insulin Human Regular 100 units/ml vial SC SCH ×7 (07:53→22:45)
[2017-10-15 08:31] LABS: NEUTROPHIL 88 % (50-75); NUCLEATED RED BLOOD CELL 1 % (0-0); TOTAL CELLS COUNTED 100
[2017-10-15 08:33] LABS: LARGE PLATELETS PRESENT
[2017-10-15 08:34] LABS: GIANT PLATELETS PRESENT
[2017-10-15] MEDS: Saccharomyces Boulardi 250 mg Cap PO SCH ×2 (10:01→17:53)
[2017-10-15] MEDS: Insulin Detemir 100 units/ml Vial (Levemir) SC SCH ×2 (10:02→22:00)
[2017-10-15] MEDS: Potassium & Sodium Phosphate PO SCH ×3 (10:02→17:54)
--- NOTE | 2017-10-15 10:07 | CP.PCM.PN ---
Subjective - Date & Time of Evaluation Date of Evaluation: 10/15/17 Time of Evaluation: 10:04 - Subjective Subjective: Notes and events reviewed Now in ICU Trach collar Discussed with nurse - hypotension responded to IVF challenge, lactic acid negative Eyes open, unable to respond to questions due ams ROS unobtainable due to clinical condition Objective - Vital Signs/Intake and Output Vital Signs (last 24 hours): Temp Pulse Resp BP Pulse Ox 99.3 F 121 H 40 H 103/38 L 98 10/15/17 04:00 10/15/17 07:00 10/15/17 07:00 10/15/17 07:00 10/15/17 07:00 Intake and Output: 10/15/17 10/15/17 06:59 18:59 Intake Total 110 Balance 110 - Medications Medications: Current Medications Acetylcysteine (Acetylcysteine 20%) 4 ml INH RQ6 [facility] Last Admin: 10/15/17 02:11 Dose: Not Given Apixaban (Eliquis) 2.5 mg PO BID [facility] Last Admin: 10/14/17 18:00 Dose: Not Given Epoetin Chencho (Procrit) 10,000 unit IV MWF [facility] Last Admin: 10/14/17 11:45 Dose: 10,000 unit Famotidine (Pepcid) 20 mg PO DAILY [facility] Last Admin: 10/13/17 10:04 Dose: 20 mg Cefepime HCl 1 gm/ Dextrose 50 mls @ 100 mls/hr IVPB Q24H [facility] Last Admin: 10/15/17 07:55 Dose: 100 mls/hr Aztreonam 1 gm/ Dextrose 50 mls @ 200 mls/hr IVPB Q24H [facility] Last Admin: 10/15/17 02:00 Dose: 200 mls/hr Fluconazole (Diflucan Iv 100 Mg/50 Ml Ns) 50 mls @ 100 mls/hr IVPB Q24H [facility] Last Admin: 10/14/17 19:00 Dose: Not Given Insulin Detemir (Levemir) 8 unit SC AMHS [facility] Last Admin: 10/14/17 22:18 Dose: Not Given Insulin Human Regular (Novolin R) 5 unit SC AC [facility] Last Admin: 10/15/17 07:54 Dose: Not Given Insulin Human Regular (Novolin R) 0 unit SC ACHS [facility] PRN Reason: Protocol Last Admin: 10/15/17 07:53 Dose: 8 unit Linezolid (Zyvox) 600 mg PO BID [facility] Last Admin: 10/14/17 18:00 Dose: Not Given Lisinopril (Zestril) 5 mg PO DAILY [facility] Last Admin: 10/13/17 10:04 Dose: 5 mg Potassium Phos/Sodium Phos (Neutra-Phos) 1 pkt PO TID [facility] Stop: 10/15/17 18:00 Last Admin: 10/14/17 18:00 Dose: Not Given Rosuvastatin Calcium (Crestor) 10 mg PO HS [facility] Last Admin: 10/14/17 22:17 Dose: Not Given Saccharomyces Boulardii (Florastor) 250 mg PO BID [facility] Last Admin: 10/14/17 18:00 Dose: Not Given - Labs Labs: 10/15/17 06:27 10/15/17 06:27 PT 13.4 SECONDS (9.7-12.2) H 10/14/17 16:30 INR 1.2 10/14/17 16:30 APTT 28 SECONDS (21-34) 10/14/17 16:30 - Constitutional Appears: Confused, Chronically Ill - Head Exam Head Exam: ATRAUMATIC, NORMOCEPHALIC - ENT Exam ENT Exam: Mucous Membranes Moist Additional comments: trach in place - Respiratory Exam Respiratory Exam: Rhonchi. absent: Rales - Cardiovascular Exam Cardiovascular Exam: +S1, +S2. absent: JVD - GI/Abdominal Exam GI & Abdominal Exam: Soft, Normal Bowel Sounds - Extremities Exam Extremities Exam: absent: Joint Swelling, Pedal Edema - Neurological Exam Neurological Exam: Awake. absent: Alert, Oriented x3 - Skin Skin Exam: Intact, Warm Assessment and Plan (1) ARDS (adult respiratory distress syndrome) Status: Acute (2) Acute on chronic renal failure Status: Resolved (3) ESRD (end stage renal disease) Status: Acute (4) Congestive heart failure Status: Acute (5) CHF exacerbation Status: Chronic (6) Diabetes mellitus Status: Chronic (7) HTN (hypertension) Status: Chronic - Assessment and Plan (Free Text) Assessment: Maintain hd schedule, next treatment 10/17 abx as ordered Electrolytes acceptable Cultures pending ?transfuse ICU supportive care
--- NOTE | 2017-10-15 13:52 | CP.PCM.PN ---
Subjective - Date & Time of Evaluation Date of Evaluation: 10/15/17 Time of Evaluation: 13:30 - Subjective Subjective: seen and examined at ICU Not in distress,Responsive,nonverbal no fever,s/p DIRECTOR TRANSLATIONAL, BP improving,tachycardia Objective - Vital Signs/Intake and Output Vital Signs (last 24 hours): Temp Pulse Resp BP Pulse Ox 99.3 F 120 H 11 L 102/36 L 98 10/15/17 04:00 10/15/17 13:11 10/15/17 13:11 10/15/17 13:11 10/15/17 13:11 Intake and Output: 10/15/17 10/15/17 06:59 18:59 Intake Total 110 Balance 110 - Medications Medications: Current Medications Acetylcysteine (Acetylcysteine 20%) 4 ml INH RQ6 [facility] Last Admin: 10/15/17 13:16 Dose: Not Given Apixaban (Eliquis) 2.5 mg PO BID [facility] Last Admin: 10/15/17 10:20 Dose: 2.5 mg Epoetin Chencho (Procrit) 10,000 unit IV MWF [facility] Last Admin: 10/14/17 11:45 Dose: 10,000 unit Famotidine (Pepcid) 20 mg PO DAILY [facility] Last Admin: 10/15/17 10:02 Dose: 20 mg Cefepime HCl 1 gm/ Dextrose 50 mls @ 100 mls/hr IVPB Q24H [facility] Last Admin: 10/15/17 07:55 Dose: 100 mls/hr Aztreonam 1 gm/ Dextrose 50 mls @ 200 mls/hr IVPB Q24H [facility] Last Admin: 10/15/17 02:00 Dose: 200 mls/hr Fluconazole (Diflucan Iv 100 Mg/50 Ml Ns) 50 mls @ 100 mls/hr IVPB Q24H [facility] Last Admin: 10/14/17 19:00 Dose: Not Given Insulin Detemir (Levemir) 8 unit SC AMHS [facility] Last Admin: 10/15/17 10:02 Dose: 8 unit Insulin Human Regular (Novolin R) 5 unit SC AC [facility] Last Admin: 10/15/17 12:22 Dose: 5 unit Insulin Human Regular (Novolin R) 0 unit SC ACHS [facility] PRN Reason: Protocol Last Admin: 10/15/17 12:23 Dose: 6 unit Linezolid (Zyvox) 600 mg PO BID [facility] Last Admin: 10/15/17 10:03 Dose: 600 mg Lisinopril (Zestril) 5 mg PO DAILY [facility] Last Admin: 10/15/17 10:21 Dose: Not Given Potassium Phos/Sodium Phos (Neutra-Phos) 1 pkt PO TID [facility] Stop: 10/15/17 18:00 Last Admin: 10/15/17 10:02 Dose: 1 pkt Rosuvastatin Calcium (Crestor) 10 mg PO HS [facility] Last Admin: 10/14/17 22:17 Dose: Not Given Saccharomyces Boulardii (Florastor) 250 mg PO BID [facility] Last Admin: 10/15/17 10:01 Dose: 250 mg - Labs Labs: 10/15/17 06:27 10/15/17 06:27 PT 13.4 SECONDS (9.7-12.2) H 10/14/17 16:30 INR 1.2 10/14/17 16:30 APTT 28 SECONDS (21-34) 10/14/17 16:30 - Constitutional Appears: No Acute Distress - Head Exam Head Exam: NORMAL INSPECTION - Eye Exam Eye Exam: Normal appearance - ENT Exam ENT Exam: Mucous Membranes Moist - Neck Exam Neck Exam: Normal Inspection - Respiratory Exam Respiratory Exam: Clear to Ausculation Bilateral, NORMAL BREATHING PATTERN - Cardiovascular Exam Cardiovascular Exam: REGULAR RHYTHM - GI/Abdominal Exam GI & Abdominal Exam: Soft, Diminished Bowel Sounds, Normal Bowel Sounds - Extremities Exam Extremities Exam: Full ROM, Normal Inspection - Back Exam Back Exam: absent: NORMAL INSPECTION (sacral ulcer) - Neurological Exam Neurological Exam: Awake. absent: Oriented x3 - Psychiatric Exam Psychiatric exam: Flat Affect - Skin Skin Exam: absent: Intact (sacral ulcer) Assessment and Plan - Assessment and Plan (Free Text) Assessment: This is a 77 years old male with hx of DM II, CKD, PPM ,Dementia ,s/p code blue 08/11/2017 ,trach,peg, picc line and new hemodilaysis transferred to the ICU unit after a rapid response where he was found unresponsive and SBP of 84/ 42mmHg Had thick resp secretion.likely due to pneumonia/possible aspiration.Tube feeding on hold Plan: 1.Hypotension and s/p DIRECTOR TRANSLATIONAL Blood pressure improving,r/o infection Mental status likely at his base line continue antibiotics (on azactum,cefapime,flucanazole and zyvox)and follow cultures follow infectioud disease recommendation 2. Cardiac arrest,NSTEMI s/p trach,s/p peg continue asprin and Eliquis 3Aflutter-on eliquis 4.Chronic systolic CHF EF 25 to 30% continue asprin,lopressor and crestor 5.Pneumonia-continue antibiotics,chest x ray 6.HTN-Hol if BP low 7.CKD on HD HD as per aviation safety officer 8.DM monitor sugar continue insulin 9.sacral ulcer-wound care seen by surgery,on antibiotics,turning position 10Anemia 11.DVT-Eliquis 12-on prophylaxis dvt and gi * Pepcid 20mg PO daily
[2017-10-15 17:29] LABS: RBC URINE 600 /hpf (0-3); URINE BACTERIA MOD (<OCC); URINE BILIRUBIN 1+ (NEGATIVE); URINE BLOOD 2+ (NEGATIVE); URINE COLOR Red (YELLOW); URINE GLUCOSE (UA) NORMAL (Normal); URINE KETONE TRACE mg/dL (NEGATIVE); URINE LEUKOCYTE ESTERASE 3+ Leu/uL (Negative); URINE PROTEIN 1+ mg/dL (NEGATIVE); URINE UROBILINOGEN NORMAL mg/dL (0.2-1.0); WBC URINE 440 /hpf (0-5)
[2017-10-15] MEDS: Fluconazole IV 100mg/50 ml NS 50 ML IVPB SCH (19:00)
--- NOTE | 2017-10-15 23:17 | CP.PCM.PN ---
Subjective - Date & Time of Evaluation Date of Evaluation: 10/15/17 Time of Evaluation: 11:10 - Subjective Subjective: Patient seen and evaluated Patient transferred to ICU due to lethargy and altered mental status Lethargic Physical Examination - Constitutional Appears: Chronically Ill - Head Exam Head Exam: ATRAUMATIC, NORMAL INSPECTION, NORMOCEPHALIC - Eye Exam Eye Exam: EOMI Pupil Exam: NORMAL ACCOMODATION - ENT Exam ENT Exam: Mucous Membranes Moist - Neck Exam Additional comments: trach - Respiratory Exam Respiratory Exam: Clear to Ausculation Bilateral, NORMAL BREATHING PATTERN - Cardiovascular Exam Cardiovascular Exam: REGULAR RHYTHM - GI/Abdominal Exam GI & Abdominal Exam: Soft, Normal Bowel Sounds. absent: Distended, Tenderness - Extremities Exam Extremities Exam: absent: Joint Swelling, Tenderness - Back Exam Additional comments: 10x10 unstageable ulcer with healthy granulation tissue. No necrotic tissue. optifoam dressing with medihoney. Clear dry and intact - Neurological Exam Neurological Exam: Lethargic - Psychiatric Exam Psychiatric exam: Normal Affect, Normal Mood - Skin Skin Exam: Dry, Intact, Normal Color, Warm Objective - Vital Signs/Intake and Output Vital Signs (last 24 hours): Temp Pulse Resp BP Pulse Ox 100.1 F H 117 H 39 H 95/40 L 100 10/15/17 20:00 10/15/17 22:00 10/15/17 22:00 10/15/17 22:11 10/15/17 22:00 Intake and Output: 10/15/17 10/16/17 18:59 06:59 Intake Total 70 Output Total 20 Balance 50 - Medications Medications: Current Medications Acetylcysteine (Acetylcysteine 20%) 4 ml INH RQ6 [facility] Last Admin: 10/15/17 19:23 Dose: Not Given Apixaban (Eliquis) 2.5 mg PO BID [facility] Last Admin: 10/15/17 17:53 Dose: 2.5 mg Epoetin Chencho (Procrit) 10,000 unit IV MWF [facility] Last Admin: 10/14/17 11:45 Dose: 10,000 unit Famotidine (Pepcid) 20 mg PO DAILY [facility] Last Admin: 10/15/17 10:02 Dose: 20 mg Cefepime HCl 1 gm/ Dextrose 50 mls @ 100 mls/hr IVPB Q24H [facility] Last Admin: 10/15/17 07:55 Dose: 100 mls/hr Aztreonam 1 gm/ Dextrose 50 mls @ 200 mls/hr IVPB Q24H [facility] Last Admin: 10/15/17 22:37 Dose: 200 mls/hr Fluconazole (Diflucan Iv 100 Mg/50 Ml Ns) 50 mls @ 100 mls/hr IVPB Q24H [facility] Last Admin: 10/15/17 19:00 Dose: 100 mls/hr Insulin Detemir (Levemir) 8 unit SC AMHS [facility] Last Admin: 10/15/17 22:00 Dose: 8 unit Insulin Human Regular (Novolin R) 5 unit SC AC [facility] Last Admin: 10/15/17 17:54 Dose: 5 unit Insulin Human Regular (Novolin R) 0 unit SC ACHS [facility] PRN Reason: Protocol Last Admin: 10/15/17 22:45 Dose: Not Given Linezolid (Zyvox) 600 mg PO BID [facility] Last Admin: 10/15/17 17:55 Dose: 600 mg Lisinopril (Zestril) 5 mg PO DAILY [facility] Last Admin: 10/15/17 10:21 Dose: Not Given Rosuvastatin Calcium (Crestor) 10 mg PO HS [facility] Last Admin: 10/15/17 22:35 Dose: 10 mg Saccharomyces Boulardii (Florastor) 250 mg PO BID [facility] Last Admin: 10/15/17 17:53 Dose: 250 mg - Labs Labs: 10/15/17 06:27 10/15/17 06:27 PT 13.4 SECONDS (9.7-12.2) H 10/14/17 16:30 INR 1.2 10/14/17 16:30 APTT 28 SECONDS (21-34) 10/14/17 16:30 Assessment and Plan - Assessment and Plan (Free Text) Assessment: Assessment and Plan - Assessment and Plan (Free Text) Assessment: Atrial Fibrillation Intermittent Rate controlled. On Metoprolol 50 mg PO BID, Eliquis 2.5 mg PO BID CAD, chest pain -No current plans for cardiac cath (acute respiratory failure and elevated Cr) , history of abnormal stress test -Elevated Troponin likely due to chest compressions during cardiac arrest 08/10 -No acute ST changes on EKG -Continue ASA, Crestor, Metoprolol. -Echocardiogram from 08/08/17 showed left ventricle systolic function is severely impaired. EF: 25-30%; global hypokinesis of LV mild AR. MR is moderate. Moderate-severe pulmonary hypertension Systolic CHF exacerbation -CXR 09/09: Diminished bilateral basilar airspace disease; stable cardiomegaly -BNP [id number] on 08/06/17 -Continue ASA, Crestor, Metoprolol -Echocardiogram from 08/08/17 showed left ventricle systolic function is severely impaired. EF: 25-30%; global hypokinesis of LV mild AR. MR is moderate. Moderate-severe pulmonary hypertesnion Dobutamine discontinued in light of atrial flutter-type episodes Diabetes Mellitus ISS Continue to monitor ESRD on HD Currently on HD On Procrit and Phoslo Nephro on the case Prophylaxis Pepcid 20 mg PO daily Eliquis 2.5 mg PO BID (Renal precautions) Disposition Awaiting Transfer to LTAC
[2017-10-16] MEDS ORDERED: Sodium Chloride 0.9% 500 ML IV ONE ×2 (05:00→10:28)
[2017-10-16 06:36] LABS: BASO # 0.1 K/uL (0.0-0.2); BASO % 0.2 % (0.0-2.0); EOS % 0.1 % (0.0-4.0); HEMATOCRIT 27.2 % (35.0-51.0); LYMPH # 2.6 K/uL (1.0-4.3); LYMPH % 6.5 % (20.0-40.0); MEAN CELL VOLUME 85.1 fL (80.0-94.0); MEAN CORPUSCULAR HEMOGLOBIN 25.5 pg (27.0-31.0); MEAN PLATELET VOLUME 8.6 fL (7.2-11.7); MONO # 1.4 K/uL (0.0-0.8); MONO % 3.6 % (0.0-10.0); NRBC % 0.2 % (0.0-2.0); PLATELET COUNT 473 K/uL (130-400); RED CELL DISTRIBUTION WIDTH 27.2 % (11.5-14.5)
[2017-10-16 06:42] LABS: WHITE BLOOD COUNT 40.4 K/uL (4.8-10.8)
[2017-10-16 06:47] LABS: ALB/GLOB RATIO 0.6 (1.0-2.1); BILIRUBIN,TOTAL 0.6 mg/dL (0.2-1.3); CALCIUM 7.2 mg/dl (8.6-10.4); MAGNESIUM 2.3 mg/dL (1.6-2.3); PHOSPHOROUS 4.6 mg/dL (2.5-4.5); POTASSIUM 3.9 mmol/L (3.6-5.2); TOTAL PROTEIN 7.1 g/dL (6.3-8.3)
[2017-10-16] MEDS: (Novolin R) Insulin Human Regular 100 units/ml vial SC SCH ×7 (08:00→22:00)
--- NOTE | 2017-10-16 08:39 | CP.PCM.PN ---
Subjective - Date & Time of Evaluation Date of Evaluation: 10/16/17 Time of Evaluation: 08:35 - Subjective Subjective: Medical Attending note: Patient seen and examined this morning. Patient is more awake this morning. Unable ROS secondary to clinical condition. Objective - Vital Signs/Intake and Output Vital Signs (last 24 hours): Temp Pulse Resp BP Pulse Ox 98.9 F 122 H 26 H 80/36 L 96 10/16/17 04:00 10/16/17 07:12 10/16/17 07:12 10/16/17 07:12 10/16/17 07:12 Intake and Output: 10/16/17 10/16/17 06:59 18:59 Intake Total 50 240 Balance 50 240 - Medications Medications: Current Medications Acetylcysteine (Acetylcysteine 20%) 4 ml INH RQ6 [facility] Last Admin: 10/15/17 19:23 Dose: Not Given Apixaban (Eliquis) 2.5 mg PO BID [facility] Last Admin: 10/15/17 17:53 Dose: 2.5 mg Epoetin Chencho (Procrit) 10,000 unit IV MWF [facility] Last Admin: 10/14/17 11:45 Dose: 10,000 unit Famotidine (Pepcid) 20 mg PO DAILY [facility] Last Admin: 10/15/17 10:02 Dose: 20 mg Cefepime HCl 1 gm/ Dextrose 50 mls @ 100 mls/hr IVPB Q24H [facility] Last Admin: 10/15/17 07:55 Dose: 100 mls/hr Aztreonam 1 gm/ Dextrose 50 mls @ 200 mls/hr IVPB Q24H [facility] Last Admin: 10/15/17 22:37 Dose: 200 mls/hr Fluconazole (Diflucan Iv 100 Mg/50 Ml Ns) 50 mls @ 100 mls/hr IVPB Q24H [facility] Last Admin: 10/15/17 19:00 Dose: 100 mls/hr Insulin Detemir (Levemir) 8 unit SC AMHS [facility] Last Admin: 10/15/17 22:00 Dose: 8 unit Insulin Human Regular (Novolin R) 5 unit SC AC [facility] Last Admin: 10/15/17 17:54 Dose: 5 unit Insulin Human Regular (Novolin R) 0 unit SC ACHS [facility] PRN Reason: Protocol Last Admin: 10/15/17 22:45 Dose: Not Given Linezolid (Zyvox) 600 mg PO BID [facility] Last Admin: 10/15/17 17:55 Dose: 600 mg Lisinopril (Zestril) 5 mg PO DAILY [facility] Last Admin: 10/15/17 10:21 Dose: Not Given Rosuvastatin Calcium (Crestor) 10 mg PO HS [facility] Last Admin: 10/15/17 22:35 Dose: 10 mg Saccharomyces Boulardii (Florastor) 250 mg PO BID [facility] Last Admin: 10/15/17 17:53 Dose: 250 mg - Labs Labs: 10/16/17 06:24 10/16/17 06:24 PT 13.4 SECONDS (9.7-12.2) H 10/14/17 16:30 INR 1.2 10/14/17 16:30 APTT 28 SECONDS (21-34) 10/14/17 16:30 - Constitutional Appears: Chronically Ill - Head Exam Head Exam: NORMAL INSPECTION - Eye Exam Eye Exam: EOMI - ENT Exam ENT Exam: Mucous Membranes Dry - Respiratory Exam Respiratory Exam: Decreased Breath Sounds, Rhonchi, NORMAL BREATHING PATTERN. absent: Wheezes - Cardiovascular Exam Cardiovascular Exam: REGULAR RHYTHM, +S1, +S2 - GI/Abdominal Exam GI & Abdominal Exam: Soft, Normal Bowel Sounds. absent: Distended, Guarding, Rigid, Tenderness, Mass, Rebound - Extremities Exam Extremities Exam: absent: Pedal Edema, Tenderness Additional comments: Prevalon boots - Neurological Exam Neurological Exam: Awake Assessment and Plan - Assessment and Plan (Free Text) Assessment: Assessment/Plan (1) Acute Respiratory Failure ARDS Cardiac Arrest Pulmonary Edema Nonstemi Assessment and Plan: * Code Blue on 08/10: asystole, cardiopulmonary resuscitative measures initiated , requiring 3 epis, bicarbonate, ROSC achieved and intubated and brought to the ICU for further management; Patient in the ICU from 08/10 until present. * Pulmonary: Dr Mena (Dr. Jeffers covering until 09/04/17)-->help appreciated * Cardiology: Dr. Cortés on board-->help appreciated * GI (Dr. Wills) on board-->help appreciated * S/P Tracheostomy 08/22 * S/P Peg tube placement 08/25 * s/p insertion of right posterior chest tube 08/19-->removed 08/24/17 * Passy Flex Trach placed 09/15 * There was consideration for possible thoracentesis of left side pleural effusion, evaluated by IR, there is no fluid to drain per Dr. Gross * Chest xray (08/26): right arm PICC is seen with the tip of distal subclavian vein. PICC may be used * Chest Xray (09/20/17): lines and tubes stable position, left-sided pacemaker, moderate venous congestion, left basilar opacity with associated small left pleural effusion, Cardiomegaly. Prominent aorta, degenrative changes in spine and shoulders * Medications: * Acetylcysteine 20% 4ml INH RQ6H * Duoneb 3ml INH RQ6H * Aspirin 81mg PO daily * Eliquis 2.5mg PO bid * off Lopressor 50mg PO bid * Pulmonary and cardiology following * Pending pulmonary to determine when patient is stable for decannulation * Order ABG and portable chest xray (2) Abnormal Stress Test History of AICD History of Coronary Artery Disease Assessment and Plan: * Cardiology (Dr. Cortés) on board-->help appreciated * TSH: 1.16; T4: 1.53 * Echocardiogram (08/08/17): left ventricle systolic function is severely impaired. EF: 25-30%; global hypokinesis of left ventricle mild aortic regurgitation. Mitral regurgitation is moderate. Moderate-severe pulmonary hypertension * Plan was for cardiac catheterization; delayed due to acute renal failure; Attempted gentle hydration and mucomyst on 08/09 to optimize prior to cath * On 08/10, patient was in asystole, ACLS protocol, ROSC achieved, intubated and transfered to the ICU. Patient in acute pulmonary edema. * Patient hospitalized and require to and from ICU twice during this admission * Cardiac cath postponed at this time * Medications: * Acetylcysteine 20% 4ml INH RQ6H * Duoneb 3ml INH RQ6H * Aspirin 81mg PO daily * Eliquis 2.5mg PO bid * off Lopressor 50mg PO bid given hypotension * Crestor 10mg POqHS * Lisinopril 5mg PO daily (3) Atrial flutter Assessment and Plan: * Cardiology (Dr. Cortés) on board-->help appreciated * Refractory to Lopressor/Cardizem IVP * c/w Eliquis 2.5mg PO bid * off Lopressor 50mg PO bid Status: Resolved (4) Acute on Chronic Systolic CHF exacerbation Assessment and Plan: * Cardiology (Dr. Cortés) on board-->help appreciated * Transferred to the ICU on 08/10 following cardiac arrest and intubation. * Echocardiogram (08/08/17): left ventricular systolic function is severely impaired. EF: 25-30%; global hypokinesis of left ventricle mild aortic regurgitation. Mitral regurgitation is moderate. Moderate-severe pulmonary hypertension * Medications: * Aspirin 81mg PO daily * Lopressor 50mg PO bid-->held 10/14/17 * Lisinopril 5mg PO daily * Crestor 10mg POqHS Status: Stable (5) Leukocytosis Assessment and Plan: * Infectious Disease (Dr. Lawrence) on board-->help appreciated * Increasing; 40.4 * Abnormal UA wit pyuria/hematuria; Pending Urine culture (10/14) * Portable chest xray (10/14) * Heel eschar-->will ask for podiatry consult; surgery has said in the past no intervention. * patient is on Cefepime 1 gram IV Q24H (active 10/12/17), Aztreonam 1 gram IV Q 24H (active since 10/13/17), and Zyvox 600mg PO BID (active since 10/14/17) and Diflucan 100mg IV Q 24 (active since 10/14/17) * Etiology: pneumonia, and sacral decub; patient has alot of secretions; nursing and respiratory are suctioning * Pleural Fluid 08/19/17 did not show any growth * Blood cultures (09/13): no growth X5 days X2 * Blood cultures (09/07) during dialysis: no growth X5 days X2 * UA and urine culture (08/27): Yeast Species. * UA and urine culture (09/13): Yeast Species. 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 * Sacral Ulcer (09/15/17): VRE and Reny Albicans * Sacral Ulcer (09/20/17): VRE and Reny Albicans * Sacral Ulcer (09/30/17): Enterobacter Aerogenes-->Sensitive Cefepime IV * Blood cultures (10/13/17): no growth for 24 hours X2 * Bone Scan performed 09/17/17 to check for Osteomyelitis at the Sacrum: negative for osteomyelitis * c/w Tigecycline (09/16/17): which will cover the VRE in Sacral Wound Culture 09/14/17 and repeat on 09/20/17--to finished 10/05/17 * c/w Diflucan 200 mg PO 1x/day (09/13/17-10/16/17: which will cover with Yeast in the Sputum, Urine, and Sacral Wound Culture-->stopped on 10/06/17; restarted 10/14/17- present * Procalcitionin: 8.60 (09/06/17)-->5.80 (09/20)-->2.86 (10/04)--->4.91 (10/12) * Per ID, Patient started on Cefepime 1 gram IV Q24H (active 10/12/17), Aztreonam 1 gram IV Q 24H (active since 10/13/17), and Zyvox 600mg PO BID ( active since 10/14/17) Status: Acute (6) Pneumonia Assessment and Plan: * Pulmonary (Dr. Mena) on board-->help appreciated * Infectious Disease (Dr. Lawrence)-->help appreciated * Rapid A strep, Influenza A and B studies, Urine Legionella, Mycoplasma studies = Negative * Florastor 250mg PO bid * 08/07/17: +Strep Pneumoniae in the urine * Meropenem 500mg IV Q 8 hours (08/14/17 through 08/18/17) and Zosyn 2.25 mg IV Q6H (08/13/17 through 08/18/17) * Cefepime 1 gm IV Q24H: started on 08/19/17 and was discontinued by ID Dr. Lawrence on 08/30/17: monitor vitals and labs * Restarted on 10/12/17 * s/p right posterior chest tube 08/19-08/24 * Sputum Culture 08/19/17 shows No growth * Pleural fluid 08/19/17: No growth * 09/07/17 Sputum: Enterocloace Bacter and Yeast Species: See Antibiotic treatment in previous Assessment and Plan * Sputum 09/10/17 shows NO AFB * Procalcitionin: 8.60 (09/06/17)-->5.80 (09/20)-->2.86 (10/04)--->4.91 (10/12) * Patient started on Cefepime 1 gram IV Q24H (active 10/12/17), Aztreonam 1 gram IV Q 24H (active since 10/13/17), and Zyvox 600mg PO BID (active since ) Status: Acute (7) HTN (hypertension) Assessment and Plan: * Lopressor 50mg PO bid * Lisinopril 5mg PO daily Status: Chronic (8) CKD (chronic kidney disease) on Dialysis Assessment and Plan: * Dr. Miranda (nephrology) consulted on the case * Hx of CKD-->Started on dialysis 08/15/17 * Kurtis catheter placed and removed 08/22 * s/p Right Chest Permcath 08/22 * Patient is on dialysis -W-; oliguric * Phoslo 1334mg GT TID * Epoetin 10,000 unit IV MWF Status: Chronic (9) Diabetes mellitus Assessment and Plan: * Accuchecks Q6H * HgbA1c 8.4 * Started peg feedings on 08/26/17 * Levemir 8 unit AM and HS * Novolin R 5 unit AC (10) HLD (hyperlipidemia) Assessment and Plan: * LFTS have normalized; will restart statin 09/20/17 * Crestor 10mg POqHS Status: Chronic (11) Anemia Assessment and Plan: * Heme-oncology (Dr. Giles bender) on board-->help appreciated * Likely iron deficiency anemia based on prior admissions * Ferritin 27.4, Iron 22, TIBC 322, % Saturation 7 * Ferric Sodium Gluconate 125mg IVPB daily (active 08/08-08/16) * Procrit 10,000 units -W- * Monitor Hgb/Hct: stable Status: Chronic (12) History of DVT (deep vein thrombosis) Assessment and Plan: * Patient was previously on Eliquis for a prior history of DVT. * Repeat dopplers 08/09/17 are negative for DVT * Off Heparin Drip 08/17/17 * Started Eliquis 2.5mg PO BID for atrial flutter and history of DVT Status: Chronic (13) UTI Assessment and Plan: * Infectious disease (Dr. Lawrence) on board-->help appreciated * Exchange jaquez out and repeat urine cultures * Urine Culture 08/12/17 showed Gram Negative Rods: NO identification and NO sensitivities were performed * Meropenem 500mg IV Q 12hours (active since 08/14/17 through 08/18/17) to cover for UTI per ID * Repeat Urine Culture 08/18/17 shows NO growth * 08/25: reculture in light of leukocytosis * 08/27: pending urine studies * 08/30: Urine Culture 08/27/17 showed Yeast Species but no antifungal at that time secondary to recent history of Elevated LFTs * Urine Culture 09/13/17 showed Yeast Species: completed Diflucan on 10/06/17 * Urine culture (10/06/17): No growth * Urine culture (10/14/17): pending Status: Chronic (14) Confusion; Alzheimer's Dementia Assessment and Plan: * Per daughter, patient has been getting bouts of confusion over the past year but appears at baseline. Patient has not seen formal neurology as outpatient per daughter. Per , prior to event, noted Alzheimers' disease dx one year ago * CT head w/o contrast (08/10/17):acute os subacute lacune infarct is not excluded in the left basal ganglia inferiorly with definitive chronic lacune identified in the right basal ganglia superiorly. No acute or subacute lobar brain infarction is appreciable by standard CT criteria. Mild age-related neuro degenerative changes are identifed. No acute intracranial hemorrhage or mass is identified throughout * 08/26: Off Sedation-->patient moves all extremities randomly but does not follow directions * 08/27: off sedation-->patient is very calm, smiles at his * 08/28: off sedation-->patient is very calm * 10/14: FIRE WATCHER for hypotension and lethargy; CT Head was repeated given patient is on Eliquis: * CT Head w/o contrast (10/14/17): no intracranial mass, hemorrhage, or evidence of acute infarct. 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 Old right external capsule ischemic change. Age related atrophy and chronic microvascular ischemic change Status: Chronic (15) Unstageable Sacral Ulcer, Left Ear Auricle Ulcer, Right Heal Ulcer Assessment and Plan: * Wound care on board * WOUND CARE [id number] patients sacral ulcer. Base softening up. Must continue medi-honey (nickel thick) then cover with a bordered dressing to be done daily. Patient must be repositioned frequently to optimize offloading of sacral region. Right heel is dark purple in color. Must continue to elevate both heels at all times to optimize heel offloading. Hemoglobin-9.6, Marshal of 14. Patient continues to be at risk for skin breakdown. will continue to follow. 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 * Sacral Ulcer (09/15/17): VRE and Reny Albicans * Sacral Ulcer (09/20/17): VRE and Reny Albicans * Sacral Ulcer (09/30/17): Enterobacter Aerogenes-->Sensitive Cefepime IV * Bone Scan performed 09/17/17 to check for Osteomyelitis at the Sacrum: negative for osteomyeliti * Daily wound care and dressing change by medicine team; healing appropriately Antibiotics * c/w Tigecycline (09/16/17: which will cover the VRE in Sacral Wound Culture and repeat on 09/20/17-->PER ID, d/c 10/15/17 * c/w Diflucan 200 mg PO 1x/day (09/13/17; Day 20): which will cover with Yeast in the Sputum, Urine, and Sacral Wound Culture--> PER ID, D/c 10/06/17; restarted on 10/14/17 * Procalcitionin: 8.60 (09/06/17)-->5.80 (09/20)-->2.86 (10/04)--->4.91 (10/12) * Patient started on Cefepime 1 gram IV Q24H (active 10/12/17), Aztreonam 1 gram IV Q 24H (active since 10/13/17), and Zyvox 600mg PO BID (active since ) Status: Acute (16) Elevated LFTs Assessment and Plan: * Have normalized * Currently off Diflucan since 10/06/17; restart 10/14/17 * Crestor 10mg POqHS (17). Hx Constipation * Monitor bowel movement (18). Hyponatremia-->resolved (). Prophylactic measure Assessment and Plan: * Pepcid 20mg PO daily * Start Eliquis 2.5mg PO BID * s/p peg placement 08/25 * s/p trachesostomy 08/22 * s/p Permcath placement 08/22 removal Kurtis catheter * s/p right posterior chest tube 08/19-->removed 08/24 * s/p Right Arm PICC 08/26 * Passy Flex Trach placed 09/15 * (Jovita Serrano): -->number provided to the nurse- ->consented for peg placement; discussed about LTAC 08/26 * Spoke with Dr. Pickard, MARIAJOSE regarding patient's hospitalization up until 08/26 Disposition: * Discussed with case management and pediatric social worker, working with patient's family and insurance to determine placement. Ongoing talks. Patient will also need dialysis placement. * Podiatry consult for heel eschars. * Pending chest xray and ABG for today * Possible switch out PICC r/o line sepsis tomorrow * Infectious disease adjusted medications on 10/14 (FIRE WATCHER). Patient started on Cefepime 1 gram IV Q24H (active 10/12/17), Aztreonam 1 gram IV Q 24H (active since 10/13/17), and Zyvox 600mg PO BID (active since 10/14/17) * Off beta ana maria since 10/14 due to hypotensive episodes
[2017-10-16 08:51] LABS: EOSINOPHIL 1 % (0-4); NEUTROPHIL 88 % (50-75); TOTAL CELLS COUNTED 100
[2017-10-16 08:53] LABS: LARGE PLATELETS PRESENT
--- NOTE | 2017-10-16 09:10 | RAD ---
Chest x-ray single frontal view History: Pneumonia. Comparison: 10/14/2017 Findings: Tracheostomy tube in place. Other lines and tubes stable position. Left-sided pacemaker. Mild venous congestion. Right hilar prominence. Patchy increased markings at the left lung base. Cardiomegaly. Tortuous aorta. Degenerative changes in the spine and shoulders. Impression: Mild venous congestion. Right hilar prominence. Patchy increased markings at the left lung base. Cardiomegaly.
--- NOTE | 2017-10-16 10:38 | CP.PCM.CON ---
History of Present Illness - History of Present Illness History of Present Illness: Podiatry Consult Note- Dr. Lundberg 77 year old male patient seen at bedside in ICU for evaluation of right heel eschar. Pt's was present. reports pt is bedbound. Pt was in no acute distress and responsive to presence but was non-verbal. Unable to acquire history of present illness. Pts and nursing staff report no acute overnight events. Past Patient History - Infectious Disease Hx of Infectious Diseases: None - Past Medical History & Family History Past Medical History?: Yes - Past Social History Smoking Status: Never Smoked Chewing Tobacco Use: No Cigar Use: No Alcohol: None Drugs: Denies Home Situation {Lives}: With Family - CARDIAC Hx Congestive Heart Failure: Yes Hx Hypertension: Yes - PULMONARY Hx Asthma: Yes - RENAL Hx Chronic Kidney Disease: Yes (REANAL INSUFFICIENCY) Hx Kidney Stones: Yes - ENDOCRINE/METABOLIC Hx Diabetes Mellitus Type 2: Yes - MUSCULOSKELETAL/RHEUMATOLOGICAL Hx Arthritis: Yes - GENITOURINARY/GYNECOLOGICAL Hx Genitourinary Disorders: Yes Hx Prostate Problems: Yes (ELEVATED PSA) - PSYCHIATRIC Hx Anxiety: Yes Hx Depression: Yes Hx Substance Use: No - SURGICAL HISTORY Hx Surgeries: Yes Other/Comment: pacemaker on - ANESTHESIA Hx Anesthesia: Yes Hx Anesthesia Reactions: No Hx Malignant Hyperthermia: No Meds Allergies/Adverse Reactions: Allergies Allergy/AdvReac Type Severity Reaction Status Date / Time No Known Allergies Allergy Verified 08/06/17 13:20 - Medications Medications: Current Medications Acetylcysteine (Acetylcysteine 20%) 4 ml INH RQ6 [facility] Last Admin: 10/15/17 19:23 Dose: Not Given Apixaban (Eliquis) 2.5 mg PO BID [facility] Last Admin: 10/15/17 17:53 Dose: 2.5 mg Epoetin Chencho (Procrit) 10,000 unit IV MWF [facility] Last Admin: 10/14/17 11:45 Dose: 10,000 unit Famotidine (Pepcid) 20 mg PO DAILY [facility] Last Admin: 10/15/17 10:02 Dose: 20 mg Cefepime HCl 1 gm/ Dextrose 50 mls @ 100 mls/hr IVPB Q24H [facility] Last Admin: 10/16/17 08:54 Dose: 100 mls/hr Aztreonam 1 gm/ Dextrose 50 mls @ 200 mls/hr IVPB Q24H [facility] Last Admin: 10/15/17 22:37 Dose: 200 mls/hr Fluconazole (Diflucan Iv 100 Mg/50 Ml Ns) 50 mls @ 100 mls/hr IVPB Q24H [facility] Last Admin: 10/15/17 19:00 Dose: 100 mls/hr Sodium Chloride (Sodium Chloride 0.9%) 500 mls @ 1,000 mls/hr IV .Q30M ONE Stop: 10/16/17 10:57 Insulin Detemir (Levemir) 8 unit SC AMHS [facility] Last Admin: 10/15/17 22:00 Dose: 8 unit Insulin Human Regular (Novolin R) 5 unit SC AC [facility] Last Admin: 10/16/17 08:00 Dose: 5 unit Insulin Human Regular (Novolin R) 0 unit SC ACHS [facility] PRN Reason: Protocol Last Admin: 10/16/17 08:00 Dose: 3 unit Linezolid (Zyvox) 600 mg PO BID [facility] Last Admin: 10/15/17 17:55 Dose: 600 mg Lisinopril (Zestril) 5 mg PO DAILY [facility] Last Admin: 10/15/17 10:21 Dose: Not Given Rosuvastatin Calcium (Crestor) 10 mg PO HS [facility] Last Admin: 10/15/17 22:35 Dose: 10 mg Saccharomyces Boulardii (Florastor) 250 mg PO BID [facility] Last Admin: 10/15/17 17:53 Dose: 250 mg Physical Exam - Constitutional Appears: Non-toxic, No Acute Distress, Chronically Ill - Extremities Exam Additional comments: LE focused exam Vasc: DP pulses palpable along proximal arterial course bilaterally. PT pulses non-palpable bilaterally. Skin temperature warm to cold from proximal to distal , bilaterally. CFT < 7 seconds to all digits b/l. Pedal hair growth absent. No edema noted b/l Neuro: Deep tissue reflex preserved bilaterally. Unable to assess epictic sensationa nd 2 point discrimiunation due to pt's non-verbal status. Protective sensation to sharp vs dull is grossly intact b/l Derm: Right foot plantar medial heel necrotic indurated eschar measuring 3.5x 2.3 cm noted. Steph-ulcerative area is soft to tough with underlying ecchymosis. No open lesions, wounds, maceration, xerosis, abnormal pigmentation or abnormal growths noted. Nails noted to be normotrophic, of appropriate color and adequate length MSK: Passive lower extremity range of motion noted to verbal prompting. . Pedal intrinsic muscle tone grossly atrophic. Lower leg muscle tone diminished. - Neurological Exam Neurological exam: Alert, Altered Results - Vital Signs Recent Vital Signs: Last Vital Signs Temp 98.9 F 10/16/17 04:00 Pulse 122 H 10/16/17 07:12 Resp 26 H 10/16/17 07:12 BP 80/36 L 10/16/17 07:12 Pulse Ox 96 10/16/17 07:12 - Labs Result Diagrams: 10/16/17 06:24 10/16/17 06:24 Labs: Laboratory Results - last 24 hr 10/15/17 10/15/17 10/15/17 07:35 11:11 16:44 WBC RBC Hgb Hct MCV MCH MCHC RDW Plt Count MPV Neut % (Auto) Lymph % (Auto) Taylor % (Auto) Eos % (Auto) Baso % (Auto) Neut # Lymph # Taylor # Eos # Baso # Neutrophils % (Manual) Band Neutrophils % Lymphocytes % (Manual) Monocytes % (Manual) Eosinophils % (Manual) Toxic Granulation Platelet Estimate Large Platelets Polychromasia Hypochromasia (manual) Poikilocytosis (manual Anisocytosis (manual) Macrocytosis (manual) Ovalocytes Sodium Potassium Chloride Carbon Dioxide Anion Gap BUN Creatinine Est GFR ( Amer) Est GFR (Non-Af Amer) POC Glucose (mg/dL) 370 H 340 H 228 H Random Glucose Calcium Phosphorus Magnesium Total Bilirubin AST ALT Alkaline Phosphatase Total Protein Albumin Globulin Albumin/Globulin Ratio Urine Color Urine Clarity Urine pH Ur Specific [place] Urine Protein Urine Glucose (UA) Urine Ketones Urine Blood Urine Nitrate Urine Bilirubin Urine Urobilinogen Ur Leukocyte Esterase Urine WBC (Auto) Urine RBC (Auto) Urine Bacteria 10/15/17 10/15/17 10/16/17 17:13 21:21 06:24 WBC 40.4 H* RBC 3.19 L Hgb 8.2 L Hct 27.2 L MCV 85.1 MCH 25.5 L MCHC 30.0 L RDW 27.2 H Plt Count 473 H MPV 8.6 Neut % (Auto) 89.6 H Lymph % (Auto) 6.5 L Taylor % (Auto) 3.6 Eos % (Auto) 0.1 Baso % (Auto) 0.2 Neut # 36.2 H Lymph # 2.6 Taylor # 1.4 H Eos # 0.0 Baso # 0.1 Neutrophils % (Manual) 88 H Band Neutrophils % 1 Lymphocytes % (Manual) 6 L Monocytes % (Manual) 4 Eosinophils % (Manual) 1 Toxic Granulation Present Platelet Estimate Increased H Large Platelets Present Polychromasia Slight Hypochromasia (manual) Moderate Poikilocytosis (manual Slight Anisocytosis (manual) Marked Macrocytosis (manual) Slight Ovalocytes Slight Sodium Potassium Chloride Carbon Dioxide Anion Gap BUN Creatinine Est GFR ( Amer) Est GFR (Non-Af Amer) POC Glucose (mg/dL) 234 H Random Glucose Calcium Phosphorus Magnesium Total Bilirubin AST ALT Alkaline Phosphatase Total Protein Albumin Globulin Albumin/Globulin Ratio Urine Color Red Urine Clarity Turbid Urine pH 5.0 Ur Specific [place] 1.026 Urine Protein 1+ H Urine Glucose (UA) Normal Urine Ketones Trace Urine Blood 2+ H Urine Nitrate Negative Urine Bilirubin 1+ H Urine Urobilinogen Normal Ur Leukocyte Esterase 3+ H Urine WBC (Auto) 440 H Urine RBC (Auto) 600 H Urine Bacteria Mod H 10/16/17 10/16/17 06:24 07:26 WBC RBC Hgb Hct MCV MCH MCHC RDW Plt Count MPV Neut % (Auto) Lymph % (Auto) Taylor % (Auto) Eos % (Auto) Baso % (Auto) Neut # Lymph # Taylor # Eos # Baso # Neutrophils % (Manual) Band Neutrophils % Lymphocytes % (Manual) Monocytes % (Manual) Eosinophils % (Manual) Toxic Granulation Platelet Estimate Large Platelets Polychromasia Hypochromasia (manual) Poikilocytosis (manual Anisocytosis (manual) Macrocytosis (manual) Ovalocytes Sodium 135 Potassium 3.9 Chloride 99 Carbon Dioxide 24 Anion Gap 16 BUN 63 H Creatinine 4.2 H Est GFR ( Amer) 17 Est GFR (Non-Af Amer) 14 POC Glucose (mg/dL) 218 H Random Glucose 184 H Calcium 7.2 L Phosphorus 4.6 H Magnesium 2.3 Total Bilirubin 0.6 AST 82 H D ALT 72 D Alkaline Phosphatase 139 H Total Protein 7.1 Albumin 2.8 L Globulin 4.4 H Albumin/Globulin Ratio 0.6 L Urine Color Urine Clarity Urine pH Ur Specific [place] Urine Protein Urine Glucose (UA) Urine Ketones Urine Blood Urine Nitrate Urine Bilirubin Urine Urobilinogen Ur Leukocyte Esterase Urine WBC (Auto) Urine RBC (Auto) Urine Bacteria Assessment & Plan - Assessment and Plan (Free Text) Assessment: 77 year old male with 1) right foot unstagable pressure ulceration to heel with underlying deep tissue injury. 2) PVD, bilateral. Plan: Pt seen and evaluated. Chart, labs, and vitals reviewed. 24 hr T-max 100.1, WBC=40.4 Noted heel offloaders in place continue with use bilaterally. Applied Optifoam pad to right heel. Ordered Santyl to be applied to right heel daily. Ordered wound care nurse to monitor heel eschar. Podiatry will continue to follow patient while inhouse. - Date & Time Date: 10/16/17 Time: 11:00
[2017-10-16 10:40] LABS: ARTERIAL BLOOD HGB O2 SAT 93.8 % (95.0-98.0); CARBOXYHEMOGLOBIN 2.4 % (0.5-1.5); DRAW SITE L/B; HHB 3.1 % (0.0-5.0); METHEMOGLOBIN 0.8 % (0.0-3.0)
[2017-10-16] MEDS: Saccharomyces Boulardi 250 mg Cap PO SCH ×2 (10:49→17:40)
[2017-10-16] MEDS: Insulin Detemir 100 units/ml Vial (Levemir) SC SCH ×2 (10:49→21:19)
[2017-10-16] MEDS ORDERED: Iohexol 240 (50 ml) PO ONE (12:00)
--- NOTE | 2017-10-16 15:53 | CT ---
EXAM: CT Chest Without Intravenous Contrast CT Abdomen and Pelvis Without Intravenous Contrast EXAM DATE/TIME: 10/16/2017 10:44 AM CLINICAL HISTORY: 77 years old, male; Condition or disease; Other: Elevate wbcs; Other: Elevated wbcs; Additional info: Increasing wbcs TECHNIQUE: Axial computed tomography images of the chest, abdomen and pelvis without intravenous contrast. All CT scans at this facility use one or more dose reduction techniques, viz.: automated exposure control; ma/kV adjustment per patient size (including targeted exams where dose is matched to indication; i.e. head); or iterative reconstruction technique. Coronal and sagittal reformatted images were created and reviewed. COMPARISON: No relevant prior studies available. FINDINGS: CHEST: Lungs: Small subpleural posterior consolidation in both lower lobes, greater on the right. Pleural space: Trace left pleural effusion. No pneumothorax. Heart: Coronary artery calcifications. No significant pericardial effusion. ABDOMEN: Liver: Unremarkable. Gallbladder and bile ducts: Gallstones. No ductal dilation. Pancreas: Unremarkable. No ductal dilation. Spleen: Unremarkable. No splenomegaly. Adrenals: Unremarkable. No mass. Kidneys and ureters: Faintly hyperdense left renal lesion of 1.8 cm. Isodense exophytic lesion of 1 cm right kidney. 7 mm calculus lower pole left kidney. No hydronephrosis. Stomach and bowel: Gastrostomy tube in body of stomach. Sigmoid diverticuli. Wall thickening distal sigmoid colon and mild pericolic edema. No obstruction. Appendix: No findings to suggest acute appendicitis. PELVIS: Bladder: Under distended bladder. Intramural fat bladder wall, normal histological findings. No stones. Reproductive: Prostate measures 4.5 x 6 cm. CHEST, ABDOMEN and PELVIS: Intraperitoneal space: Unremarkable. No significant fluid collection. No free air. Bones/joints: No acute fracture. No obvious lytic destruction of sacrum or coccyx. Soft tissues: Soft tissue defect left medial inferior buttock of about 2.3 cm wide at 1.2 cm deep. Gas density in the cavity as well as surrounding area. Similar but less prominent findings on the right side. No appreciable skin or soft tissue over distal coccyx. Tiny gas bubbles at anterior margin of the coccyx. Vasculature: Moderate atherosclerotic calcifications of aorta and branch vessels. No aneurysm. Lymph nodes: Unremarkable. No enlarged lymph nodes. Tubes, lines and devices: Tracheostomy tube in satisfactory position. Pacemaker leads over right atrium and right ventricle. Right internal jugular venous line in SVC/atriocaval junction. IMPRESSION: 1. Trace left pleural effusion and bilateral lower lobe atelectasis/infiltrates. 2. Mild sigmoid diverticulitis. 3. Bilateral gluteal and coccygeal decubitus ulcers. 4. Left renal calculus, no hydronephrosis. Complex renal cysts. 5. Gallstones. 6. Remaining findings as above.
--- NOTE | 2017-10-16 16:08 | CP.CCUPN ---
CCU Subjective - Physician Review Events Since Last Encounter (Free Text): 10/16/17 16:06 Patient seen and examined. 77-year-old male transferred to ICU for hypotension and change in mental status Patient is unresponsive and in no respiratory distress On trach collar and hemodialysis CCU Objective - Vital Signs / Intake & Output Vital Signs (Last 4 hours): Last Vital Signs Temp 98.9 F 10/16/17 04:00 Pulse 122 H 10/16/17 07:12 Resp 26 H 10/16/17 07:12 BP 80/36 L 10/16/17 07:12 Pulse Ox 96 10/16/17 07:12 Intake and Output (Last 8hrs): Intake & Output 10/16/17 10/16/17 10/16/17 06:59 14:59 22:59 Intake Total 240 Balance 240 Weight 164 lb 3.91 oz Intake: Oral 0 Tube Feeding 240 - Physical Exam Head: Positive for: Atraumatic Pupils: Positive for: Sluggish Extroacular Muscles: Positive for: EOMI Conjunctiva: Positive for: Normal Mouth: Positive for: Moist Mucous Membranes Pharnyx: Positive for: Normal Respiratory/Chest: Positive for: Clear to Auscultation, Good Air Exchange ( Anteriorly ), Other (Tracheostomy ). Negative for: Respiratory Distress Cardiovascular: Positive for: Regular Rate and Rhythm, Normal S1, S2 Abdomen: Positive for: Distention, Other (Decreased bowel sounds) Upper Extremity: Negative for: Edema Lower Extremity: Negative for: Edema, Swelling Neurological: Negative for: Speech Normal Skin: Positive for: Normal Color Psychiatric: Positive for: Alert. Negative for: Oriented x 3 - Medications Active Medications: Active Medications Generic Name Dose Route Start Last Admin Trade Name Freq PRN Reason Stop Dose Admin Acetylcysteine 4 ml 10/07/17 08:00 10/15/17 19:23 Acetylcysteine 20% INH Not Given RQ6 LUIS FERNANDO Apixaban 2.5 mg 08/27/17 12:00 10/16/17 11:09 Eliquis PO 2.5 mg BID LUIS FERNANDO Administration Collagenase 0 gm 10/17/17 10:00 Santyl TOP DAILY LUIS FERNANDO Epoetin Chencho 10,000 unit 10/05/17 11:45 10/14/17 11:45 Procrit IV 10,000 unit MWF LUIS FERNANDO Administration Famotidine 20 mg 08/09/17 10:00 10/16/17 10:50 Pepcid PO 20 mg DAILY LUIS FERNANDO Administration Cefepime HCl 1 gm/ Dextrose 50 mls @ 100 mls/hr 10/12/17 08:30 10/16/17 08:54 IVPB 100 mls/hr Q24H LUIS FERNANDO Administration Aztreonam 1 gm/ Dextrose 50 mls @ 200 mls/hr 10/13/17 22:00 10/15/17 22:37 IVPB 200 mls/hr Q24H LUIS FERNANDO Administration Fluconazole 50 mls @ 100 mls/hr 10/14/17 19:00 10/15/17 19:00 Diflucan Iv 100 Mg/50 Ml Ns IVPB 100 mls/hr Q24H LUIS FERNANDO Administration Linezolid 600 mg in 300 mls @ 200 mls/hr 10/16/17 22:00 Zyvox 600mg/300ml D5w IVPB Q12 LUIS FERNANDO Insulin Detemir 8 unit 10/12/17 22:00 10/16/17 10:49 Levemir SC 8 unit [facility] Administration Insulin Human Regular 5 unit 10/12/17 16:30 10/16/17 11:30 Novolin R SC Not Given AC LUIS FERNANDO Insulin Human Regular 0 unit 10/14/17 07:30 10/16/17 11:30 Novolin R SC Not Given [facility] Protocol Lisinopril 5 mg 10/12/17 10:00 10/16/17 10:50 Zestril PO 5 mg DAILY LUIS FERNANDO Administration Metronidazole 500 mg 10/16/17 14:00 Flagyl GT Q8 LUIS FERNANDO Rosuvastatin Calcium 10 mg 10/02/17 22:00 10/15/17 22:35 Crestor PO 10 mg HS [facility] Administration Saccharomyces Boulardii 250 mg 09/26/17 18:00 10/16/17 10:49 Florastor PO 250 mg BID LUIS FERNANDO Administration - Patient Studies Lab Studies: Microbiology Studies 10/13/17 12:30 Blood Culture - Preliminary Blood NO GROWTH AFTER 3 DAYS 10/13/17 13:57 Blood Culture - Preliminary Blood NO GROWTH AFTER 3 DAYS 10/10/17 07:55 Gram Stain - Final Sacral Wound Culture - Final Enterobacter Aerogenes Reny Glabrata 10/15/17 Unknown MRSA Culture (Admit) - Final Naris MRSA NOT DETECTED Lab Studies 11/19/17 11/19/17 11/19/17 Range/Units 12:32 12:12 10:30 WBC (4.8-10.8) K/uL RBC (4.40-5.90) Mil/uL Hgb (12.0-18.0) g/dL Hct (35.0-51.0) % MCV (80.0-94.0) fL MCH (27.0-31.0) pg MCHC (33.0-37.0) g/dL RDW (11.5-14.5) % Plt Count (130-400) K/uL MPV (7.2-11.7) fL Neut % (Auto) (50.0-75.0) % Lymph % (Auto) (20.0-40.0) % [place] % (Auto) (0.0-10.0) % Eos % (Auto) (0.0-4.0) % Baso % (Auto) (0.0-2.0) % Neut # (1.8-7.0) K/uL Lymph # (1.0-4.3) K/uL [place] # (0.0-0.8) K/uL Eos # (0.0-0.7) K/uL Baso # (0.0-0.2) K/uL Neutrophils % (Manual) (50-75) % Band Neutrophils % (0-2) % Lymphocytes % (Manual) (20-40) % Monocytes % (Manual) (0-10) % Eosinophils % (Manual) (0-4) % Toxic Granulation Platelet Estimate (NORMAL) Large Platelets Polychromasia Hypochromasia (manual) Poikilocytosis (manual Anisocytosis (manual) Macrocytosis (manual) Ovalocytes Puncture Site L/b pCO2 34 L (35-45) mm/Hg pO2 74 L (80-100) mm/Hg HCO3 24.4 (21-28) mmol/L ABG pH 7.44 (7.35-7.45) ABG Total CO2 24.1 (22-28) mmol/L ABG O2 Saturation 96.8 (95-98) % ABG Base Excess -0.6 (-2.0-3.0) mmol/L ABG Hemoglobin 12.3 (11.7-17.4) g/dL ABG Carboxyhemoglobin 2.4 H (0.5-1.5) % POC ABG HHb (Measured) 3.1 (0.0-5.0) % ABG Methemoglobin 0.8 (0.0-3.0) % Uriel Test Na A-a O2 Difference 169.0 mm/Hg Respiratory Index 2.3 Hgb O2 Saturation 93.8 L (95.0-98.0) % FiO2 40.0 % Crit Value Called To Dr larson Crit Value Called By Salvador murillo supply and distribution manager Crit Value Read Back Y Blood Gas Notified Time 1040 Sodium (132-148) mmol/L Potassium (3.6-5.2) mmol/L Chloride (98-107) mmol/L Carbon Dioxide (22-30) mmol/L Anion Gap (10-20) BUN (9-20) mg/dL Creatinine (0.8-1.5) mg/dL Est GFR ( Amer) Est GFR (Non-Af Amer) POC Glucose (mg/dL) 137 H (65-110) mg/dL Random Glucose (75-110) mg/dL Calcium (8.6-10.4) mg/dl Phosphorus (2.5-4.5) mg/dL Magnesium (1.6-2.3) mg/dL Total Bilirubin (0.2-1.3) mg/dL AST (17-59) U/L ALT (21-72) U/L Alkaline Phosphatase (38-126) U/L Total Protein (6.3-8.3) g/dL Albumin (3.5-5.0) g/dL Globulin (2.2-3.9) gm/dL Albumin/Globulin Ratio (1.0-2.1) Procalcitonin 6.19 H (0.19-0.49) NG/ML Urine Color (YELLOW) Urine Clarity (Clear) Urine pH (5.0-8.0) Ur Specific [place] (1.003-1.030) Urine Protein (NEGATIVE) mg/dL Urine Glucose (UA) (Normal) mg/dL Urine Ketones (NEGATIVE) mg/dL Urine Blood (NEGATIVE) Urine Nitrate (NEGATIVE) Urine Bilirubin (NEGATIVE) Urine Urobilinogen (0.2-1.0) mg/dL Ur Leukocyte Esterase (Negative) Francoise/uL Urine WBC (Auto) (0-5) /hpf Urine RBC (Auto) (0-3) /hpf Urine Bacteria (<OCC) C. difficile Ag & Toxin (NEGATIVE) 10/16/17 10/16/17 10/16/17 Range/Units 07:26 06:24 06:24 WBC 40.4 H* (4.8-10.8) K/uL RBC 3.19 L (4.40-5.90) Mil/uL Hgb 8.2 L (12.0-18.0) g/dL Hct 27.2 L (35.0-51.0) % MCV 85.1 (80.0-94.0) fL MCH 25.5 L (27.0-31.0) pg MCHC 30.0 L (33.0-37.0) g/dL RDW 27.2 H (11.5-14.5) % Plt Count 473 H (130-400) K/uL MPV 8.6 (7.2-11.7) fL Neut % (Auto) 89.6 H (50.0-75.0) % Lymph % (Auto) 6.5 L (20.0-40.0) % [place] % (Auto) 3.6 (0.0-10.0) % Eos % (Auto) 0.1 (0.0-4.0) % Baso % (Auto) 0.2 (0.0-2.0) % Neut # 36.2 H (1.8-7.0) K/uL Lymph # 2.6 (1.0-4.3) K/uL [place] # 1.4 H (0.0-0.8) K/uL Eos # 0.0 (0.0-0.7) K/uL Baso # 0.1 (0.0-0.2) K/uL Neutrophils % (Manual) 88 H (50-75) % Band Neutrophils % 1 (0-2) % Lymphocytes % (Manual) 6 L (20-40) % Monocytes % (Manual) 4 (0-10) % Eosinophils % (Manual) 1 (0-4) % Toxic Granulation Present Platelet Estimate Increased H (NORMAL) Large Platelets Present Polychromasia Slight Hypochromasia (manual) Moderate Poikilocytosis (manual Slight Anisocytosis (manual) Marked Macrocytosis (manual) Slight Ovalocytes Slight Puncture Site pCO2 (35-45) mm/Hg pO2 (80-100) mm/Hg HCO3 (21-28) mmol/L ABG pH (7.35-7.45) ABG Total CO2 (22-28) mmol/L ABG O2 Saturation (95-98) % ABG Base Excess (-2.0-3.0) mmol/L ABG Hemoglobin (11.7-17.4) g/dL ABG Carboxyhemoglobin (0.5-1.5) % POC ABG HHb (Measured) (0.0-5.0) % ABG Methemoglobin (0.0-3.0) % Uriel Test A-a O2 Difference mm/Hg Respiratory Index Hgb O2 Saturation (95.0-98.0) % FiO2 % Crit Value Called To Crit Value Called By Crit Value Read Back Blood Gas Notified Time Sodium 135 (132-148) mmol/L Potassium 3.9 (3.6-5.2) mmol/L Chloride 99 (98-107) mmol/L Carbon Dioxide 24 (22-30) mmol/L Anion Gap 16 (10-20) BUN 63 H (9-20) mg/dL Creatinine 4.2 H (0.8-1.5) mg/dL Est GFR ( Amer) 17 Est GFR (Non-Af Amer) 14 POC Glucose (mg/dL) 218 H (65-110) mg/dL Random Glucose 184 H (75-110) mg/dL Calcium 7.2 L (8.6-10.4) mg/dl Phosphorus 4.6 H (2.5-4.5) mg/dL Magnesium 2.3 (1.6-2.3) mg/dL Total Bilirubin 0.6 (0.2-1.3) mg/dL AST 82 H D (17-59) U/L ALT 72 D (21-72) U/L Alkaline Phosphatase 139 H (38-126) U/L Total Protein 7.1 (6.3-8.3) g/dL Albumin 2.8 L (3.5-5.0) g/dL Globulin 4.4 H (2.2-3.9) gm/dL Albumin/Globulin Ratio 0.6 L (1.0-2.1) Procalcitonin (0.19-0.49) NG/ML Urine Color (YELLOW) Urine Clarity (Clear) Urine pH (5.0-8.0) Ur Specific [place] (1.003-1.030) Urine Protein (NEGATIVE) mg/dL Urine Glucose (UA) (Normal) mg/dL Urine Ketones (NEGATIVE) mg/dL Urine Blood (NEGATIVE) Urine Nitrate (NEGATIVE) Urine Bilirubin (NEGATIVE) Urine Urobilinogen (0.2-1.0) mg/dL Ur Leukocyte Esterase (Negative) Francoise/uL Urine WBC (Auto) (0-5) /hpf Urine RBC (Auto) (0-3) /hpf Urine Bacteria (<OCC) C. difficile Ag & Toxin (NEGATIVE) 10/15/17 10/15/17 10/15/17 Range/Units 21:21 17:13 16:44 WBC (4.8-10.8) K/uL RBC (4.40-5.90) Mil/uL Hgb (12.0-18.0) g/dL Hct (35.0-51.0) % MCV (80.0-94.0) fL MCH (27.0-31.0) pg MCHC (33.0-37.0) g/dL RDW (11.5-14.5) % Plt Count (130-400) K/uL MPV (7.2-11.7) fL Neut % (Auto) (50.0-75.0) % Lymph % (Auto) (20.0-40.0) % [place] % (Auto) (0.0-10.0) % Eos % (Auto) (0.0-4.0) % Baso % (Auto) (0.0-2.0) % Neut # (1.8-7.0) K/uL Lymph # (1.0-4.3) K/uL [place] # (0.0-0.8) K/uL Eos # (0.0-0.7) K/uL Baso # (0.0-0.2) K/uL Neutrophils % (Manual) (50-75) % Band Neutrophils % (0-2) % Lymphocytes % (Manual) (20-40) % Monocytes % (Manual) (0-10) % Eosinophils % (Manual) (0-4) % Toxic Granulation Platelet Estimate (NORMAL) Large Platelets Polychromasia Hypochromasia (manual) Poikilocytosis (manual Anisocytosis (manual) Macrocytosis (manual) Ovalocytes Puncture Site pCO2 (35-45) mm/Hg pO2 (80-100) mm/Hg HCO3 (21-28) mmol/L ABG pH (7.35-7.45) ABG Total CO2 (22-28) mmol/L ABG O2 Saturation (95-98) % ABG Base Excess (-2.0-3.0) mmol/L ABG Hemoglobin (11.7-17.4) g/dL ABG Carboxyhemoglobin (0.5-1.5) % POC ABG HHb (Measured) (0.0-5.0) % ABG Methemoglobin (0.0-3.0) % Uriel Test A-a O2 Difference mm/Hg Respiratory Index Hgb O2 Saturation (95.0-98.0) % FiO2 % Crit Value Called To Crit Value Called By Crit Value Read Back Blood Gas Notified Time Sodium (132-148) mmol/L Potassium (3.6-5.2) mmol/L Chloride (98-107) mmol/L Carbon Dioxide (22-30) mmol/L Anion Gap (10-20) BUN (9-20) mg/dL Creatinine (0.8-1.5) mg/dL Est GFR ( Amer) Est GFR (Non-Af Amer) POC Glucose (mg/dL) 234 H 228 H (65-110) mg/dL Random Glucose (75-110) mg/dL Calcium (8.6-10.4) mg/dl Phosphorus (2.5-4.5) mg/dL Magnesium (1.6-2.3) mg/dL Total Bilirubin (0.2-1.3) mg/dL AST (17-59) U/L ALT (21-72) U/L Alkaline Phosphatase (38-126) U/L Total Protein (6.3-8.3) g/dL Albumin (3.5-5.0) g/dL Globulin (2.2-3.9) gm/dL Albumin/Globulin Ratio (1.0-2.1) Procalcitonin (0.19-0.49) NG/ML Urine Color Red (YELLOW) Urine Clarity Turbid (Clear) Urine pH 5.0 (5.0-8.0) Ur Specific [place] 1.026 (1.003-1.030) Urine Protein 1+ H (NEGATIVE) mg/dL Urine Glucose (UA) Normal (Normal) mg/dL Urine Ketones Trace (NEGATIVE) mg/dL Urine Blood 2+ H (NEGATIVE) Urine Nitrate Negative (NEGATIVE) Urine Bilirubin 1+ H (NEGATIVE) Urine Urobilinogen Normal (0.2-1.0) mg/dL Ur Leukocyte Esterase 3+ H (Negative) Francoise/uL Urine WBC (Auto) 440 H (0-5) /hpf Urine RBC (Auto) 600 H (0-3) /hpf Urine Bacteria Mod H (<OCC) C. difficile Ag & Toxin (NEGATIVE) 10/14/17 Range/Units Unknown WBC (4.8-10.8) K/uL RBC (4.40-5.90) Mil/uL Hgb (12.0-18.0) g/dL Hct (35.0-51.0) % MCV (80.0-94.0) fL MCH (27.0-31.0) pg MCHC (33.0-37.0) g/dL RDW (11.5-14.5) % Plt Count (130-400) K/uL MPV (7.2-11.7) fL Neut % (Auto) (50.0-75.0) % Lymph % (Auto) (20.0-40.0) % [place] % (Auto) (0.0-10.0) % Eos % (Auto) (0.0-4.0) % Baso % (Auto) (0.0-2.0) % Neut # (1.8-7.0) K/uL Lymph # (1.0-4.3) K/uL [place] # (0.0-0.8) K/uL Eos # (0.0-0.7) K/uL Baso # (0.0-0.2) K/uL Neutrophils % (Manual) (50-75) % Band Neutrophils % (0-2) % Lymphocytes % (Manual) (20-40) % Monocytes % (Manual) (0-10) % Eosinophils % (Manual) (0-4) % Toxic Granulation Platelet Estimate (NORMAL) Large Platelets Polychromasia Hypochromasia (manual) Poikilocytosis (manual Anisocytosis (manual) Macrocytosis (manual) Ovalocytes Puncture Site pCO2 (35-45) mm/Hg pO2 (80-100) mm/Hg HCO3 (21-28) mmol/L ABG pH (7.35-7.45) ABG Total CO2 (22-28) mmol/L ABG O2 Saturation (95-98) % ABG Base Excess (-2.0-3.0) mmol/L ABG Hemoglobin (11.7-17.4) g/dL ABG Carboxyhemoglobin (0.5-1.5) % POC ABG HHb (Measured) (0.0-5.0) % ABG Methemoglobin (0.0-3.0) % Uriel Test A-a O2 Difference mm/Hg Respiratory Index Hgb O2 Saturation (95.0-98.0) % FiO2 % Crit Value Called To Crit Value Called By Crit Value Read Back Blood Gas Notified Time Sodium (132-148) mmol/L Potassium (3.6-5.2) mmol/L Chloride (98-107) mmol/L Carbon Dioxide (22-30) mmol/L Anion Gap (10-20) BUN (9-20) mg/dL Creatinine (0.8-1.5) mg/dL Est GFR ( Amer) Est GFR (Non-Af Amer) POC Glucose (mg/dL) (65-110) mg/dL Random Glucose (75-110) mg/dL Calcium (8.6-10.4) mg/dl Phosphorus (2.5-4.5) mg/dL Magnesium (1.6-2.3) mg/dL Total Bilirubin (0.2-1.3) mg/dL AST (17-59) U/L ALT (21-72) U/L Alkaline Phosphatase (38-126) U/L Total Protein (6.3-8.3) g/dL Albumin (3.5-5.0) g/dL Globulin (2.2-3.9) gm/dL Albumin/Globulin Ratio (1.0-2.1) Procalcitonin (0.19-0.49) NG/ML Urine Color (YELLOW) Urine Clarity (Clear) Urine pH (5.0-8.0) Ur Specific [place] (1.003-1.030) Urine Protein (NEGATIVE) mg/dL Urine Glucose (UA) (Normal) mg/dL Urine Ketones (NEGATIVE) mg/dL Urine Blood (NEGATIVE) Urine Nitrate (NEGATIVE) Urine Bilirubin (NEGATIVE) Urine Urobilinogen (0.2-1.0) mg/dL Ur Leukocyte Esterase (Negative) Francoise/uL Urine WBC (Auto) (0-5) /hpf Urine RBC (Auto) (0-3) /hpf Urine Bacteria (<OCC) C. difficile Ag & Toxin Negative (NEGATIVE) Laboratory Results - last 24 hr 10/14/17 10/15/17 10/15/17 Unknown 16:44 17:13 WBC RBC Hgb Hct MCV MCH MCHC RDW Plt Count MPV Neut % (Auto) Lymph % (Auto) [place] % (Auto) Eos % (Auto) Baso % (Auto) Neut # Lymph # [place] # Eos # Baso # Neutrophils % (Manual) Band Neutrophils % Lymphocytes % (Manual) Monocytes % (Manual) Eosinophils % (Manual) Toxic Granulation Platelet Estimate Large Platelets Polychromasia Hypochromasia (manual) Poikilocytosis (manual Anisocytosis (manual) Macrocytosis (manual) Ovalocytes Puncture Site pCO2 pO2 HCO3 ABG pH ABG Total CO2 ABG O2 Saturation ABG Base Excess ABG Hemoglobin ABG Carboxyhemoglobin POC ABG HHb (Measured) ABG Methemoglobin Uriel Test A-a O2 Difference Respiratory Index Hgb O2 Saturation FiO2 Crit Value Called To Crit Value Called By Crit Value Read Back Blood Gas Notified Time Sodium Potassium Chloride Carbon Dioxide Anion Gap BUN Creatinine Est GFR ( Amer) Est GFR (Non-Af Amer) POC Glucose (mg/dL) 228 H Random Glucose Calcium Phosphorus Magnesium Total Bilirubin AST ALT Alkaline Phosphatase Total Protein Albumin Globulin Albumin/Globulin Ratio Procalcitonin Urine Color Red Urine Clarity Turbid Urine pH 5.0 Ur Specific [place] 1.026 Urine Protein 1+ H Urine Glucose (UA) Normal Urine Ketones Trace Urine Blood 2+ H Urine Nitrate Negative Urine Bilirubin 1+ H Urine Urobilinogen Normal Ur Leukocyte Esterase 3+ H Urine WBC (Auto) 440 H Urine RBC (Auto) 600 H Urine Bacteria Mod H C. difficile Ag & Toxin Negative 10/15/17 10/16/17 10/16/17 21:21 06:24 06:24 WBC 40.4 H* RBC 3.19 L Hgb 8.2 L Hct 27.2 L MCV 85.1 MCH 25.5 L MCHC 30.0 L RDW 27.2 H Plt Count 473 H MPV 8.6 Neut % (Auto) 89.6 H Lymph % (Auto) 6.5 L [place] % (Auto) 3.6 Eos % (Auto) 0.1 Baso % (Auto) 0.2 Neut # 36.2 H Lymph # 2.6 [place] # 1.4 H Eos # 0.0 Baso # 0.1 Neutrophils % (Manual) 88 H Band Neutrophils % 1 Lymphocytes % (Manual) 6 L Monocytes % (Manual) 4 Eosinophils % (Manual) 1 Toxic Granulation Present Platelet Estimate Increased H Large Platelets Present Polychromasia Slight Hypochromasia (manual) Moderate Poikilocytosis (manual Slight Anisocytosis (manual) Marked Macrocytosis (manual) Slight Ovalocytes Slight Puncture Site pCO2 pO2 HCO3 ABG pH ABG Total CO2 ABG O2 Saturation ABG Base Excess ABG Hemoglobin ABG Carboxyhemoglobin POC ABG HHb (Measured) ABG Methemoglobin Uriel Test A-a O2 Difference Respiratory Index Hgb O2 Saturation FiO2 Crit Value Called To Crit Value Called By Crit Value Read Back Blood Gas Notified Time Sodium 135 Potassium 3.9 Chloride 99 Carbon Dioxide 24 Anion Gap 16 BUN 63 H Creatinine 4.2 H Est GFR ( Amer) 17 Est GFR (Non-Af Amer) 14 POC Glucose (mg/dL) 234 H Random Glucose 184 H Calcium 7.2 L Phosphorus 4.6 H Magnesium 2.3 Total Bilirubin 0.6 AST 82 H D ALT 72 D Alkaline Phosphatase 139 H Total Protein 7.1 Albumin 2.8 L Globulin 4.4 H Albumin/Globulin Ratio 0.6 L Procalcitonin Urine Color Urine Clarity Urine pH Ur Specific [place] Urine Protein Urine Glucose (UA) Urine Ketones Urine Blood Urine Nitrate Urine Bilirubin Urine Urobilinogen Ur Leukocyte Esterase Urine WBC (Auto) Urine RBC (Auto) Urine Bacteria C. difficile Ag & Toxin 10/16/17 10/16/17 10/16/17 07:26 10:30 12:12 WBC RBC Hgb Hct MCV MCH MCHC RDW Plt Count MPV Neut % (Auto) Lymph % (Auto) [place] % (Auto) Eos % (Auto) Baso % (Auto) Neut # Lymph # [place] # Eos # Baso # Neutrophils % (Manual) Band Neutrophils % Lymphocytes % (Manual) Monocytes % (Manual) Eosinophils % (Manual) Toxic Granulation Platelet Estimate Large Platelets Polychromasia Hypochromasia (manual) Poikilocytosis (manual Anisocytosis (manual) Macrocytosis (manual) Ovalocytes Puncture Site L/b pCO2 34 L pO2 74 L HCO3 24.4 ABG pH 7.44 ABG Total CO2 24.1 ABG O2 Saturation 96.8 ABG Base Excess -0.6 ABG Hemoglobin 12.3 ABG Carboxyhemoglobin 2.4 H POC ABG HHb (Measured) 3.1 ABG Methemoglobin 0.8 Uriel Test Na A-a O2 Difference 169.0 Respiratory Index 2.3 Hgb O2 Saturation 93.8 L FiO2 40.0 Crit Value Called To Dr larson Crit Value Called By Salvador murillo supply and distribution manager Crit Value Read Back Y Blood Gas Notified Time 1040 Sodium Potassium Chloride Carbon Dioxide Anion Gap BUN Creatinine Est GFR ( Amer) Est GFR (Non-Af Amer) POC Glucose (mg/dL) 218 H 137 H Random Glucose Calcium Phosphorus Magnesium Total Bilirubin AST ALT Alkaline Phosphatase Total Protein Albumin Globulin Albumin/Globulin Ratio Procalcitonin Urine Color Urine Clarity Urine pH Ur Specific [place] Urine Protein Urine Glucose (UA) Urine Ketones Urine Blood Urine Nitrate Urine Bilirubin Urine Urobilinogen Ur Leukocyte Esterase Urine WBC (Auto) Urine RBC (Auto) Urine Bacteria C. difficile Ag & Toxin 10/16/17 12:32 WBC RBC Hgb Hct MCV MCH MCHC RDW Plt Count MPV Neut % (Auto) Lymph % (Auto) [place] % (Auto) Eos % (Auto) Baso % (Auto) Neut # Lymph # [place] # Eos # Baso # Neutrophils % (Manual) Band Neutrophils % Lymphocytes % (Manual) Monocytes % (Manual) Eosinophils % (Manual) Toxic Granulation Platelet Estimate Large Platelets Polychromasia Hypochromasia (manual) Poikilocytosis (manual Anisocytosis (manual) Macrocytosis (manual) Ovalocytes Puncture Site pCO2 pO2 HCO3 ABG pH ABG Total CO2 ABG O2 Saturation ABG Base Excess ABG Hemoglobin ABG Carboxyhemoglobin POC ABG HHb (Measured) ABG Methemoglobin Uriel Test A-a O2 Difference Respiratory Index Hgb O2 Saturation FiO2 Crit Value Called To Crit Value Called By Crit Value Read Back Blood Gas Notified Time Sodium Potassium Chloride Carbon Dioxide Anion Gap BUN Creatinine Est GFR ( Amer) Est GFR (Non-Af Amer) POC Glucose (mg/dL) Random Glucose Calcium Phosphorus Magnesium Total Bilirubin AST ALT Alkaline Phosphatase Total Protein Albumin Globulin Albumin/Globulin Ratio Procalcitonin 6.19 H Urine Color Urine Clarity Urine pH Ur Specific [place] Urine Protein Urine Glucose (UA) Urine Ketones Urine Blood Urine Nitrate Urine Bilirubin Urine Urobilinogen Ur Leukocyte Esterase Urine WBC (Auto) Urine RBC (Auto) Urine Bacteria C. difficile Ag & Toxin Fingerstick Blood Sugar Results: 219 Review of Systems - Review of Systems Systems not reviewed;Unavailable: Other (Patient on trach collar) Critical Care Progress Note - Nutrition Nutrition: Nutrition Category Date Time Status NPO Diet [DIET] Diets 08/21/17 Dinner Active Assessment/Plan (1) Hypotension (arterial) Current Visit: Yes Status: Acute Comment: Patient is hypotensive secondary to sepsis Elevated white count and pro-calcitonin level Antibiotics as per infectious disease Continue trach collar Pressors as needed (2) Pneumonia Current Visit: Yes Status: Acute (3) Cardiac arrest Current Visit: Yes Status: Acute (4) History of DVT (deep vein thrombosis) Current Visit: Yes Status: Acute (5) CKD (chronic kidney disease) Current Visit: No Status: Chronic Comment: (6) CHF (congestive heart failure) Current Visit: Yes Status: Acute
[2017-10-16] MEDS: Fluconazole IV 100mg/50 ml NS 50 ML IVPB SCH (19:17)
--- NOTE | 2017-10-16 19:51 | CP.PCM.PN ---
Subjective - Date & Time of Evaluation Date of Evaluation: 10/16/17 Time of Evaluation: 17:20 - Subjective Subjective: Patient seen and evaluated in ICU More awake today Family at bedside Physical Examination - Constitutional Appears: Chronically Ill - Head Exam Head Exam: ATRAUMATIC, NORMAL INSPECTION, NORMOCEPHALIC - Eye Exam Eye Exam: EOMI Pupil Exam: NORMAL ACCOMODATION - ENT Exam ENT Exam: Mucous Membranes Moist - Neck Exam Additional comments: trach - Respiratory Exam Respiratory Exam: Clear to Ausculation Bilateral, NORMAL BREATHING PATTERN - Cardiovascular Exam Cardiovascular Exam: REGULAR RHYTHM - GI/Abdominal Exam GI & Abdominal Exam: Soft, Normal Bowel Sounds. absent: Distended, Tenderness - Extremities Exam Extremities Exam: absent: Joint Swelling, Tenderness - Back Exam Additional comments: 10x10 unstageable ulcer with healthy granulation tissue. No necrotic tissue. optifoam dressing with medihoney. Clear dry and intact - Neurological Exam Neurological Exam: Alert, Awake - Psychiatric Exam Psychiatric exam: Normal Affect, Normal Mood - Skin Skin Exam: Dry, Intact, Normal Color, Warm Objective - Vital Signs/Intake and Output Vital Signs (last 24 hours): Temp Pulse Resp BP Pulse Ox 98.8 F 109 H 26 H 100/33 L 99 10/16/17 16:00 10/16/17 19:11 10/16/17 19:11 10/16/17 19:11 10/16/17 19:11 Intake and Output: 10/16/17 10/17/17 18:59 06:59 Intake Total 280 Output Total 0 Balance 280 - Medications Medications: Current Medications Acetylcysteine (Acetylcysteine 20%) 4 ml INH RQ6 [facility] Last Admin: 10/15/17 19:23 Dose: Not Given Apixaban (Eliquis) 2.5 mg PO BID [facility] Last Admin: 10/16/17 17:39 Dose: 2.5 mg Collagenase (Santyl) 0 gm TOP DAILY [facility] Epoetin Chencho (Procrit) 10,000 unit IV MWF [facility] Last Admin: 10/14/17 11:45 Dose: 10,000 unit Famotidine (Pepcid) 20 mg PO DAILY [facility] Last Admin: 10/16/17 10:50 Dose: 20 mg Cefepime HCl 1 gm/ Dextrose 50 mls @ 100 mls/hr IVPB Q24H [facility] Last Admin: 10/16/17 08:54 Dose: 100 mls/hr Aztreonam 1 gm/ Dextrose 50 mls @ 200 mls/hr IVPB Q24H [facility] Last Admin: 10/15/17 22:37 Dose: 200 mls/hr Fluconazole (Diflucan Iv 100 Mg/50 Ml Ns) 50 mls @ 100 mls/hr IVPB Q24H [facility] Last Admin: 10/16/17 19:17 Dose: 100 mls/hr Linezolid (Zyvox 600mg/300ml D5w) 600 mg in 300 mls @ 200 mls/hr IVPB Q12 [facility] Insulin Detemir (Levemir) 8 unit SC AMHS [facility] Last Admin: 10/16/17 10:49 Dose: 8 unit Insulin Human Regular (Novolin R) 5 unit SC AC [facility] Last Admin: 10/16/17 17:00 Dose: Not Given Insulin Human Regular (Novolin R) 0 unit SC ACHS [facility] PRN Reason: Protocol Last Admin: 10/16/17 17:00 Dose: Not Given Lisinopril (Zestril) 5 mg PO DAILY [facility] Last Admin: 10/16/17 10:50 Dose: 5 mg Metronidazole (Flagyl) 500 mg GT Q8 [facility] Last Admin: 10/16/17 14:30 Dose: 500 mg Rosuvastatin Calcium (Crestor) 10 mg PO HS [facility] Last Admin: 10/15/17 22:35 Dose: 10 mg Saccharomyces Boulardii (Florastor) 250 mg PO BID [facility] Last Admin: 10/16/17 17:40 Dose: 250 mg - Labs Labs: 10/16/17 06:24 10/16/17 06:24 PT 13.4 SECONDS (9.7-12.2) H 10/14/17 16:30 INR 1.2 10/14/17 16:30 APTT 28 SECONDS (21-34) 10/14/17 16:30 Assessment and Plan - Assessment and Plan (Free Text) Assessment: Assessment and Plan - Assessment and Plan (Free Text) Assessment: Atrial Fibrillation Intermittent Rate controlled. On Metoprolol 50 mg PO BID, Eliquis 2.5 mg PO BID CAD, chest pain -No current plans for cardiac cath (acute respiratory failure and elevated Cr) , history of abnormal stress test -Elevated Troponin likely due to chest compressions during cardiac arrest 08/10 -No acute ST changes on EKG -Continue ASA, Crestor, Metoprolol. -Echocardiogram from 08/08/17 showed left ventricle systolic function is severely impaired. EF: 25-30%; global hypokinesis of LV mild AR. MR is moderate. Moderate-severe pulmonary hypertension Systolic CHF exacerbation -CXR 09/09: Diminished bilateral basilar airspace disease; stable cardiomegaly -BNP [id number] on 08/06/17 -Continue ASA, Crestor, Metoprolol -Echocardiogram from 08/08/17 showed left ventricle systolic function is severely impaired. EF: 25-30%; global hypokinesis of LV mild AR. MR is moderate. Moderate-severe pulmonary hypertesnion Dobutamine discontinued in light of atrial flutter-type episodes Diabetes Mellitus ISS Continue to monitor ESRD on HD Currently on HD On Procrit and Phoslo Nephro on the case Prophylaxis Pepcid 20 mg PO daily Eliquis 2.5 mg PO BID (Renal precautions) Disposition Awaiting Transfer to LTAC Pneumonia/Sepsis On antibiotics
[2017-10-16] MEDS: Linezolid 600 mg in D5W 300 ml 600 MG/300 ML BAG IVPB SCH (21:47)
[2017-10-17] MEDS: Acetylcysteine 20% Inhal Soln (4ml) INH SCH (01:06)
[2017-10-17 06:35] LABS: BASO # 0.1 K/uL (0.0-0.2); BASO % 0.3 % (0.0-2.0); EOS # 0.2 K/uL (0.0-0.7); EOS % 0.5 % (0.0-4.0); HEMATOCRIT 24.3 % (35.0-51.0); LYMPH # 1.9 K/uL (1.0-4.3); LYMPH % 6.1 % (20.0-40.0); MEAN CELL VOLUME 85.6 fL (80.0-94.0); MEAN CORPUSCULAR HEMOGLOBIN 26.3 pg (27.0-31.0); MEAN CORPUSCULAR HGB CONC 30.8 g/dL (33.0-37.0); MEAN PLATELET VOLUME 8.6 fL (7.2-11.7); MONO % 3.2 % (0.0-10.0); NRBC % 0.1 % (0.0-2.0); PLATELET COUNT 401 K/uL (130-400); WHITE BLOOD COUNT 31.4 K/uL (4.8-10.8)
[2017-10-17 06:51] LABS: ALB/GLOB RATIO 0.6 (1.0-2.1); BILIRUBIN,TOTAL 0.6 mg/dL (0.2-1.3); MAGNESIUM 2.3 mg/dL (1.6-2.3); PHOSPHOROUS 5.5 mg/dL (2.5-4.5); POTASSIUM 3.6 mmol/L (3.6-5.2); TOTAL PROTEIN 6.6 g/dL (6.3-8.3)
[2017-10-17] MEDS: (Novolin R) Insulin Human Regular 100 units/ml vial SC SCH ×7 (07:30→22:00)
[2017-10-17 08:27] LABS: NEUTROPHIL 83 % (50-75); TOTAL CELLS COUNTED 100
[2017-10-17 08:30] LABS: LARGE PLATELETS PRESENT
[2017-10-17] MEDS ORDERED: Albumin Human 25% (12.5 gm/50 ml) IV ONE ×2 (09:50→11:47)
[2017-10-17] MEDS ORDERED: Collagenase 250 Units/gm Ointment(30 gm) TOP SCH (10:00)
[2017-10-17] MEDS: Epoetin Alfa 10,000 unit/ml Dialysis IV SCH (10:07)
[2017-10-17] MEDS: Saccharomyces Boulardi 250 mg Cap PO SCH ×2 (10:15→18:34)
[2017-10-17] MEDS: Insulin Detemir 100 units/ml Vial (Levemir) SC SCH ×2 (10:16→22:01)
--- NOTE | 2017-10-17 10:56 | CP.PCM.PN ---
Subjective - Date & Time of Evaluation Date of Evaluation: 10/17/17 Time of Evaluation: 10:54 - Subjective Subjective: Transferred to ICU due to hypotension On dialysis now- BP low and UF stopped; IV albumin given\ Obtunded- cannot obtain ROS Blood cultures negative; on IV ABs for possible sepsis Objective - Vital Signs/Intake and Output Vital Signs (last 24 hours): Temp Pulse Resp BP Pulse Ox 98.2 F 95 H 25 H 116/28 L 98 10/17/17 09:10 10/17/17 09:10 10/17/17 09:10 10/17/17 09:55 10/17/17 09:10 Intake and Output: 10/17/17 10/17/17 06:59 18:59 Intake Total 20 Balance 20 - Medications Medications: Current Medications Acetylcysteine (Acetylcysteine 20%) 4 ml INH RQ6 [facility] Last Admin: 10/17/17 01:06 Dose: Not Given Apixaban (Eliquis) 2.5 mg PO BID [facility] Last Admin: 10/17/17 10:15 Dose: 2.5 mg Collagenase (Santyl) 0 gm TOP DAILY [facility] Epoetin Chencho (Procrit) 10,000 unit IV MWF [facility] Last Admin: 10/17/17 10:07 Dose: 10,000 unit Famotidine (Pepcid) 20 mg PO DAILY [facility] Last Admin: 10/17/17 10:15 Dose: 20 mg Cefepime HCl 1 gm/ Dextrose 50 mls @ 100 mls/hr IVPB Q24H [facility] Last Admin: 10/16/17 08:54 Dose: 100 mls/hr Aztreonam 1 gm/ Dextrose 50 mls @ 200 mls/hr IVPB Q24H [facility] Last Admin: 10/16/17 21:11 Dose: 200 mls/hr Fluconazole (Diflucan Iv 100 Mg/50 Ml Ns) 50 mls @ 100 mls/hr IVPB Q24H [facility] Last Admin: 10/16/17 19:17 Dose: 100 mls/hr Linezolid (Zyvox 600mg/300ml D5w) 600 mg in 300 mls @ 200 mls/hr IVPB Q12 [facility] Last Admin: 10/16/17 21:47 Dose: 200 mls/hr Insulin Detemir (Levemir) 8 unit SC AMHS [facility] Last Admin: 10/17/17 10:16 Dose: Not Given Insulin Human Regular (Novolin R) 5 unit SC AC [facility] Last Admin: 10/17/17 07:30 Dose: Not Given Insulin Human Regular (Novolin R) 0 unit SC ACHS [facility] PRN Reason: Protocol Last Admin: 10/17/17 08:26 Dose: 2 unit Metronidazole (Flagyl) 500 mg GT Q8 [facility] Last Admin: 10/17/17 05:35 Dose: 500 mg Midodrine (Proamatine) 5 mg PO TID [facility] Rosuvastatin Calcium (Crestor) 10 mg PO HS [facility] Last Admin: 10/16/17 21:11 Dose: 10 mg Saccharomyces Boulardii (Florastor) 250 mg PO BID [facility] Last Admin: 10/17/17 10:15 Dose: 250 mg - Labs Labs: 10/17/17 06:23 10/17/17 06:24 PT 13.4 SECONDS (9.7-12.2) H 10/14/17 16:30 INR 1.2 10/14/17 16:30 APTT 28 SECONDS (21-34) 10/14/17 16:30 - Constitutional Appears: In Acute Distress, Chronically Ill - Head Exam Head Exam: ATRAUMATIC, NORMAL INSPECTION - Neck Exam Neck Exam: Normal Inspection. absent: Tenderness - Respiratory Exam Respiratory Exam: Clear to Ausculation Bilateral, NORMAL BREATHING PATTERN - Cardiovascular Exam Cardiovascular Exam: Tachycardia, Irregular Rhythm, +S1 - GI/Abdominal Exam GI & Abdominal Exam: Soft. absent: Tenderness - Extremities Exam Extremities Exam: Normal Inspection. absent: Tenderness - Neurological Exam Neurological Exam: Altered, Motor Sensory Deficit - Skin Skin Exam: Dry, Warm Assessment and Plan (1) Acute on chronic renal failure Status: Resolved (2) CAD (coronary artery disease) Status: Chronic (3) CHF exacerbation Status: Chronic (4) Type 2 diabetes mellitus with diabetic nephropathy Status: Acute (5) Cardiorenal disease Status: Acute (6) ESRD (end stage renal disease) Status: Acute - Assessment and Plan (Free Text) Plan: Dialysis now- no UF Stop ORI I Add midodrine Decrease time on machine
[2017-10-17] MEDS: Linezolid 600 mg in D5W 300 ml 600 MG/300 ML BAG IVPB SCH ×2 (13:33→22:17)
--- NOTE | 2017-10-17 17:52 | CP.PCM.PN ---
Subjective - Date & Time of Evaluation Date of Evaluation: 10/17/17 Time of Evaluation: 17:51 - Subjective Subjective: non verbal trach Objective - Vital Signs/Intake and Output Vital Signs (last 24 hours): Temp Pulse Resp BP Pulse Ox 98.3 F 119 H 28 H 144/42 L 92 L 10/17/17 12:10 10/17/17 15:00 10/17/17 15:00 10/17/17 15:33 10/17/17 15:00 Intake and Output: 10/17/17 10/17/17 06:59 18:59 Intake Total 20 660 Balance 20 660 - Medications Medications: Current Medications Apixaban (Eliquis) 2.5 mg PO BID [facility] Last Admin: 10/17/17 10:15 Dose: 2.5 mg Collagenase (Santyl) 0 gm TOP DAILY [facility] Last Admin: 10/17/17 13:34 Dose: 1 applic Epoetin Chencho (Procrit) 10,000 unit IV MWF [facility] Last Admin: 10/17/17 10:07 Dose: 10,000 unit Famotidine (Pepcid) 20 mg PO DAILY [facility] Last Admin: 10/17/17 10:15 Dose: 20 mg Heparin Sodium (Porcine) (Heparin) 3,700 units IVP MWF [facility] Last Admin: 10/17/17 12:07 Dose: 3,700 units Cefepime HCl 1 gm/ Dextrose 50 mls @ 100 mls/hr IVPB Q24H [facility] Last Admin: 10/17/17 12:48 Dose: 100 mls/hr Fluconazole (Diflucan Iv 100 Mg/50 Ml Ns) 50 mls @ 100 mls/hr IVPB Q24H [facility] Last Admin: 10/16/17 19:17 Dose: 100 mls/hr Linezolid (Zyvox 600mg/300ml D5w) 600 mg in 300 mls @ 200 mls/hr IVPB Q12 [facility] Last Admin: 10/17/17 13:33 Dose: 200 mls/hr Aztreonam 1 gm/ Sodium (Chloride) 50 mls @ 200 mls/hr IVPB Q24H [facility] Insulin Detemir (Levemir) 8 unit SC AMHS [facility] Last Admin: 10/17/17 10:16 Dose: Not Given Insulin Human Regular (Novolin R) 5 unit SC AC [facility] Last Admin: 10/17/17 11:30 Dose: Not Given Insulin Human Regular (Novolin R) 0 unit SC ACHS [facility] PRN Reason: Protocol Last Admin: 10/17/17 11:30 Dose: Not Given Metronidazole (Flagyl) 500 mg GT Q8 [facility] Last Admin: 10/17/17 13:33 Dose: 500 mg Midodrine (Proamatine) 5 mg PO TID [facility] Last Admin: 10/17/17 13:33 Dose: 5 mg Rosuvastatin Calcium (Crestor) 10 mg PO HS [facility] Last Admin: 10/16/17 21:11 Dose: 10 mg Saccharomyces Boulardii (Florastor) 250 mg PO BID [facility] Last Admin: 10/17/17 10:15 Dose: 250 mg - Labs Labs: 10/17/17 06:23 10/17/17 06:24 PT 13.4 SECONDS (9.7-12.2) H 10/14/17 16:30 INR 1.2 10/14/17 16:30 APTT 28 SECONDS (21-34) 10/14/17 16:30 - Constitutional Appears: Non-toxic, No Acute Distress - ENT Exam ENT Exam: Mucous Membranes Dry - Respiratory Exam Respiratory Exam: Rhonchi, Wheezes. absent: Clear to Ausculation Bilateral, Respiratory Distress, NORMAL BREATHING PATTERN - Cardiovascular Exam Cardiovascular Exam: REGULAR RHYTHM, +S1, +S2 - GI/Abdominal Exam GI & Abdominal Exam: Distended, Soft, Normal Bowel Sounds. absent: Tenderness - Neurological Exam Neurological Exam: Alert, Awake. absent: Oriented x3 Assessment and Plan - Assessment and Plan (Free Text) Assessment: diarrhea Hypotension during HD today (1) Acute Respiratory Failure ARDS Cardiac Arrest Pulmonary Edema Nonstemi Assessment and Plan: * Code Blue on 08/10: asystole, cardiopulmonary resuscitative measures initiated , requiring 3 epis, bicarbonate, ROSC achieved and intubated and brought to the ICU for further management; Patient in the ICU from 08/10 until present. * Pulmonary: Dr Mena (Dr. Jeffers covering until 09/04/17)-->help appreciated * Cardiology: Dr. Cortés on board-->help appreciated * GI (Dr. Wills) on board-->help appreciated * S/P Tracheostomy 08/22 * S/P Peg tube placement 08/25 * s/p insertion of right posterior chest tube 08/19-->removed 08/24/17 * Passy Flex Trach placed 09/15 * There was consideration for possible thoracentesis of left side pleural effusion, evaluated by IR, there is no fluid to drain per Dr. Gross * Chest xray (08/26): right arm PICC is seen with the tip of distal subclavian vein. PICC may be used * Chest Xray (09/20/17): lines and tubes stable position, left-sided pacemaker, moderate venous congestion, left basilar opacity with associated small left pleural effusion, Cardiomegaly. Prominent aorta, degenrative changes in spine and shoulders * Medications: * Acetylcysteine 20% 4ml INH RQ6H * Duoneb 3ml INH RQ6H * Aspirin 81mg PO daily * Eliquis 2.5mg PO bid * off Lopressor 50mg PO bid * Pulmonary and cardiology following * Pending pulmonary to determine when patient is stable for decannulation * Order ABG and portable chest xray (2) Abnormal Stress Test History of AICD History of Coronary Artery Disease Assessment and Plan: * Cardiology (Dr. Cortés) on board-->help appreciated * TSH: 1.16; T4: 1.53 * Echocardiogram (08/08/17): left ventricle systolic function is severely impaired. EF: 25-30%; global hypokinesis of left ventricle mild aortic regurgitation. Mitral regurgitation is moderate. Moderate-severe pulmonary hypertension * Plan was for cardiac catheterization; delayed due to acute renal failure; Attempted gentle hydration and mucomyst on 08/09 to optimize prior to cath * On 08/10, patient was in asystole, ACLS protocol, ROSC achieved, intubated and transfered to the ICU. Patient in acute pulmonary edema. * Patient hospitalized and require to and from ICU twice during this admission * Cardiac cath postponed at this time * Medications: * Acetylcysteine 20% 4ml INH RQ6H * Duoneb 3ml INH RQ6H * Aspirin 81mg PO daily * Eliquis 2.5mg PO bid * off Lopressor 50mg PO bid given hypotension * Crestor 10mg POqHS * Lisinopril 5mg PO daily (3) Atrial flutter Assessment and Plan: * Cardiology (Dr. Cortés) on board-->help appreciated * Refractory to Lopressor/Cardizem IVP * c/w Eliquis 2.5mg PO bid * off Lopressor 50mg PO bid Status: Resolved (4) Acute on Chronic Systolic CHF exacerbation Assessment and Plan: * Cardiology (Dr. Cortés) on board-->help appreciated * Transferred to the ICU on 08/10 following cardiac arrest and intubation. * Echocardiogram (08/08/17): left ventricular systolic function is severely impaired. EF: 25-30%; global hypokinesis of left ventricle mild aortic regurgitation. Mitral regurgitation is moderate. Moderate-severe pulmonary hypertension * Medications: * Aspirin 81mg PO daily * Lopressor 50mg PO bid-->held 10/14/17 * Lisinopril 5mg PO daily * Crestor 10mg POqHS Status: Stable (5) Leukocytosis Assessment and Plan: * Infectious Disease (Dr. Lawrence) on board-->help appreciated * Increasing; 40.4 * Abnormal UA wit pyuria/hematuria; Pending Urine culture (10/14) * Portable chest xray (10/14) * Heel eschar-->will ask for podiatry consult; surgery has said in the past no intervention. * patient is on Cefepime 1 gram IV Q24H (active 10/12/17), Aztreonam 1 gram IV Q 24H (active since 10/13/17), and Zyvox 600mg PO BID (active since 10/14/17) and Diflucan 100mg IV Q 24 (active since 10/14/17) * Etiology: pneumonia, and sacral decub; patient has alot of secretions; nursing and respiratory are suctioning * Pleural Fluid 08/19/17 did not show any growth * Blood cultures (09/13): no growth X5 days X2 * Blood cultures (09/07) during dialysis: no growth X5 days X2 * UA and urine culture (08/27): Yeast Species. * UA and urine culture (09/13): Yeast Species. 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 * Sacral Ulcer (09/15/17): VRE and Reny Albicans * Sacral Ulcer (09/20/17): VRE and Reny Albicans * Sacral Ulcer (09/30/17): Enterobacter Aerogenes-->Sensitive Cefepime IV * Blood cultures (10/13/17): no growth for 24 hours X2 * Bone Scan performed 09/17/17 to check for Osteomyelitis at the Sacrum: negative for osteomyelitis * c/w Tigecycline (09/16/17): which will cover the VRE in Sacral Wound Culture 09/14/17 and repeat on 09/20/17--to finished 10/05/17 * c/w Diflucan 200 mg PO 1x/day (09/13/17-10/16/17: which will cover with Yeast in the Sputum, Urine, and Sacral Wound Culture-->stopped on 10/06/17; restarted 10/14/17- present * Procalcitionin: 8.60 (09/06/17)-->5.80 (09/20)-->2.86 (10/04)--->4.91 (10/12) * Per ID, Patient started on Cefepime 1 gram IV Q24H (active 10/12/17), Aztreonam 1 gram IV Q 24H (active since 10/13/17), and Zyvox 600mg PO BID ( active since 10/14/17) Status: Acute (6) Pneumonia Assessment and Plan: * Pulmonary (Dr. Mena) on board-->help appreciated * Infectious Disease (Dr. Lawrence)-->help appreciated * Rapid A strep, Influenza A and B studies, Urine Legionella, Mycoplasma studies = Negative * Florastor 250mg PO bid * 08/07/17: +Strep Pneumoniae in the urine * Meropenem 500mg IV Q 8 hours (08/14/17 through 08/18/17) and Zosyn 2.25 mg IV Q6H (08/13/17 through 08/18/17) * Cefepime 1 gm IV Q24H: started on 08/19/17 and was discontinued by ID Dr. Lawrence on 08/30/17: monitor vitals and labs * Restarted on 10/12/17 * s/p right posterior chest tube 08/19-08/24 * Sputum Culture 08/19/17 shows No growth * Pleural fluid 08/19/17: No growth * 09/07/17 Sputum: Enterocloace Bacter and Yeast Species: See Antibiotic treatment in previous Assessment and Plan * Sputum 09/10/17 shows NO AFB * Procalcitionin: 8.60 (09/06/17)-->5.80 (09/20)-->2.86 (10/04)--->4.91 (10/12) * Patient started on Cefepime 1 gram IV Q24H (active 10/12/17), Aztreonam 1 gram IV Q 24H (active since 10/13/17), and Zyvox 600mg PO BID (active since ) Status: Acute (7) HTN (hypertension) Assessment and Plan: * Lopressor 50mg PO bid * Lisinopril 5mg PO daily Status: Chronic (8) CKD (chronic kidney disease) on Dialysis Assessment and Plan: * Dr. Miranda (nephrology) consulted on the case * Hx of CKD-->Started on dialysis 08/15/17 * Kurtis catheter placed and removed 08/22 * s/p Right Chest Permcath 08/22 * Patient is on dialysis ; oliguric * Phoslo 1334mg GT TID * Epoetin 10,000 unit IV MWF Status: Chronic (9) Diabetes mellitus Assessment and Plan: * Accuchecks Q6H * HgbA1c 8.4 * Started peg feedings on 08/26/17 * Levemir 8 unit AM and HS * Novolin R 5 unit AC (10) HLD (hyperlipidemia) Assessment and Plan: * LFTS have normalized; will restart statin 09/20/17 * Crestor 10mg POqHS Status: Chronic (11) Anemia Assessment and Plan: * Heme-oncology (Dr. Giles bender) on board-->help appreciated * Likely iron deficiency anemia based on prior admissions * Ferritin 27.4, Iron 22, TIBC 322, % Saturation 7 * Ferric Sodium Gluconate 125mg IVPB daily (active 08/08-08/16) * Procrit 10,000 units - * Monitor Hgb/Hct: stable Status: Chronic (12) History of DVT (deep vein thrombosis) Assessment and Plan: * Patient was previously on Eliquis for a prior history of DVT. * Repeat dopplers 08/09/17 are negative for DVT * Off Heparin Drip 08/17/17 * Started Eliquis 2.5mg PO BID for atrial flutter and history of DVT Status: Chronic (13) UTI Assessment and Plan: * Infectious disease (Dr. Lawrence) on board-->help appreciated * Exchange jaquez out and repeat urine cultures * Urine Culture 08/12/17 showed Gram Negative Rods: NO identification and NO sensitivities were performed * Meropenem 500mg IV Q 12hours (active since 08/14/17 through 08/18/17) to cover for UTI per ID * Repeat Urine Culture 08/18/17 shows NO growth * 08/25: reculture in light of leukocytosis * 08/27: pending urine studies * 08/30: Urine Culture 08/27/17 showed Yeast Species but no antifungal at that time secondary to recent history of Elevated LFTs * Urine Culture 09/13/17 showed Yeast Species: completed Diflucan on 10/06/17 * Urine culture (10/06/17): No growth * Urine culture (10/14/17): pending Status: Chronic (14) Confusion; Alzheimer's Dementia Assessment and Plan: * Per daughter, patient has been getting bouts of confusion over the past year but appears at baseline. Patient has not seen formal neurology as outpatient per daughter. Per , prior to event, noted Alzheimers' disease dx one year ago * CT head w/o contrast (08/10/17):acute os subacute lacune infarct is not excluded in the left basal ganglia inferiorly with definitive chronic lacune identified in the right basal ganglia superiorly. No acute or subacute lobar brain infarction is appreciable by standard CT criteria. Mild age-related neuro degenerative changes are identifed. No acute intracranial hemorrhage or mass is identified throughout * 08/26: Off Sedation-->patient moves all extremities randomly but does not follow directions * 08/27: off sedation-->patient is very calm, smiles at his * 08/28: off sedation-->patient is very calm * 10/14: [facility] [employer] for hypotension and lethargy; CT Head was repeated given patient is on Eliquis: * CT Head w/o contrast (10/14/17): no intracranial mass, hemorrhage, or evidence of acute infarct. 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 Old right external capsule ischemic change. Age related atrophy and chronic microvascular ischemic change Status: Chronic (15) Unstageable Sacral Ulcer, Left Ear Auricle Ulcer, Right Heal Ulcer Assessment and Plan: * Wound care on board * WOUND CARE [id number] patients sacral ulcer. Base softening up. Must continue medi-honey (nickel thick) then cover with a bordered dressing to be done daily. Patient must be repositioned frequently to optimize offloading of sacral region. Right heel is dark purple in color. Must continue to elevate both heels at all times to optimize heel offloading. Hemoglobin-9.6, Marshal of 14. Patient continues to be at risk for skin breakdown. will continue to follow. 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 * Sacral Ulcer (09/15/17): VRE and Reny Albicans * Sacral Ulcer (09/20/17): VRE and Reny Albicans * Sacral Ulcer (09/30/17): Enterobacter Aerogenes-->Sensitive Cefepime IV * Bone Scan performed 09/17/17 to check for Osteomyelitis at the Sacrum: negative for osteomyeliti * Daily wound care and dressing change by medicine team; healing appropriately Antibiotics * c/w Tigecycline (09/16/17: which will cover the VRE in Sacral Wound Culture and repeat on 09/20/17-->PER ID, d/c 10/15/17 * c/w Diflucan 200 mg PO 1x/day (09/13/17; Day 20): which will cover with Yeast in the Sputum, Urine, and Sacral Wound Culture--> PER ID, D/c 10/06/17; restarted on 10/14/17 * Procalcitionin: 8.60 (09/06/17)-->5.80 (09/20)-->2.86 (10/04)--->4.91 (10/12) * Patient started on Cefepime 1 gram IV Q24H (active 10/12/17), Aztreonam 1 gram IV Q 24H (active since 10/13/17), and Zyvox 600mg PO BID (active since ) Status: Acute (16) Elevated LFTs Assessment and Plan: * Have normalized * Currently off Diflucan since 10/06/17; restart 10/14/17 * Crestor 10mg POqHS (17). Hx Constipation * Monitor bowel movement (18). Hyponatremia-->resolved (). Prophylactic measure Assessment and Plan: * Pepcid 20mg PO daily * Start Eliquis 2.5mg PO BID * s/p peg placement 08/25 * s/p trachesostomy 08/22 * s/p Permcath placement 08/22 removal Kurtis catheter * s/p right posterior chest tube 08/19-->removed 08/24 * s/p Right Arm PICC 08/26 * Passy Flex Trach placed 09/15 * (Jovita Serrano): -->number provided to the nurse- ->consented for peg placement; discussed about LTAC 08/26 * Spoke with Dr. Pickard, MARIAJOSE regarding patient's hospitalization up until 08/26 Disposition: * Discussed with case management and social work professor, working with patient's family and insurance to determine placement. Ongoing talks. Patient will also need dialysis placement. * Podiatry consult for heel eschars. * Pending chest xray and ABG for today * Possible switch out PICC r/o line sepsis tomorrow * Infectious disease adjusted medications on 10/14 ([facility] [employer]). Patient started on Cefepime 1 gram IV Q24H (active 10/12/17), Aztreonam 1 gram IV Q 24H (active since 10/13/17), and Zyvox 600mg PO BID (active since 10/14/17) * Off beta ana maria since 10/14 due to hypotensive episodes
[2017-10-17] MEDS: Fluconazole IV 100mg/50 ml NS 50 ML IVPB SCH (18:45)
--- NOTE | 2017-10-17 19:23 | CP.CCUPN ---
CCU Subjective - Physician Review Subjective (Free Text): PGY1 ICU note for Dr. Mathew Patient seen and examined at bedside this morning. Patient is resting comfortably, in no acute distress. Patient non-verbal, trach collar. ROS unattainable. CCU Objective - Vital Signs / Intake & Output Vital Signs (Last 4 hours): Vital Signs Temp Pulse Resp BP Pulse Ox 10/17/17 18:38 111 H 27 H 91/31 L 100 10/17/17 18:00 106 H 36 H 122/39 L 96 10/17/17 17:33 110 H 25 H 122/39 L 98 10/17/17 16:33 115 H 24 134/38 L 97 10/17/17 16:00 98.7 F 116 H 16 97 10/17/17 15:33 144/42 L Intake and Output (Last 8hrs): Intake & Output 10/17/17 10/17/17 10/17/17 06:59 14:59 22:59 Intake Total 20 600 320 Balance 20 600 320 Weight 168 lb 15.36 oz Intake: Intake, IV Amount 250 100 Right Proximal Port PICC 200 100 Right Upper arm Proximal 50 Port Oral 0 Tube Feeding 20 100 120 Other 250 100 Other: # Bowel Movements 5 1 1 - Physical Exam Head: Positive for: Atraumatic Pupils: Positive for: Sluggish Extroacular Muscles: Positive for: EOMI Conjunctiva: Positive for: Normal Mouth: Positive for: Moist Mucous Membranes Pharnyx: Positive for: Normal Respiratory/Chest: Positive for: Clear to Auscultation, Good Air Exchange ( Anteriorly ), Other (Tracheostomy ). Negative for: Respiratory Distress Cardiovascular: Positive for: Regular Rate and Rhythm, Normal S1, S2 Abdomen: Positive for: Distention, Other (Decreased bowel sounds) Upper Extremity: Negative for: Edema Lower Extremity: Negative for: Edema, Swelling Neurological: Negative for: Speech Normal Skin: Positive for: Normal Color Psychiatric: Positive for: Alert. Negative for: Oriented x 3 - Medications Active Medications: Active Medications Generic Name Dose Route Start Last Admin Trade Name Freq PRN Reason Stop Dose Admin Apixaban 2.5 mg 08/27/17 12:00 10/17/17 18:34 Eliquis PO 2.5 mg BID LUIS FERNANDO Administration Collagenase 0 gm 10/17/17 10:00 10/17/17 13:34 Santyl TOP 1 applic DAILY LUIS FERNANDO Administration Epoetin Chencho 10,000 unit 10/05/17 11:45 10/17/17 10:07 Procrit IV 10,000 unit MWF [facility] Administration Famotidine 20 mg 08/09/17 10:00 10/17/17 10:15 Pepcid PO 20 mg DAILY LUIS FERNANDO Administration Heparin Sodium (Porcine) 3,700 units 10/17/17 12:00 10/17/17 12:07 Heparin IVP 3,700 units F [facility] Administration Cefepime HCl 1 gm/ Dextrose 50 mls @ 100 mls/hr 10/12/17 08:30 10/17/17 12:48 IVPB 100 mls/hr Q24H LUIS FERNANDO Administration Fluconazole 50 mls @ 100 mls/hr 10/14/17 19:00 10/17/17 18:45 Diflucan Iv 100 Mg/50 Ml Ns IVPB 100 mls/hr Q24H LUIS FERNANDO Administration Linezolid 600 mg in 300 mls @ 200 mls/hr 10/16/17 22:00 10/17/17 13:33 Zyvox 600mg/300ml D5w IVPB 200 mls/hr Q12 LUIS FERNANDO Administration Aztreonam 1 gm/ Sodium 50 mls @ 200 mls/hr 10/17/17 22:00 Chloride IVPB Q24H [facility] Insulin Detemir 8 unit 10/12/17 22:00 10/17/17 10:16 Levemir SC Not Given AMHS [facility] Insulin Human Regular 5 unit 10/12/17 16:30 10/17/17 16:30 Novolin R SC Not Given AC [facility] Insulin Human Regular 0 unit 10/14/17 07:30 10/17/17 18:34 Novolin R SC 2 unit ACHS LUIS FERNANDO Administration Protocol Metronidazole 500 mg 10/16/17 14:00 10/17/17 13:33 Flagyl GT 500 mg Q8 LUIS FERNANDO Administration Midodrine 5 mg 10/17/17 14:00 10/17/17 18:34 Proamatine PO 5 mg TID LUIS FERNANDO Administration Rosuvastatin Calcium 10 mg 10/02/17 22:00 10/16/17 21:11 Crestor PO 10 mg HS LUIS FERNANDO Administration Saccharomyces Boulardii 250 mg 09/26/17 18:00 10/17/17 18:34 Florastor PO 250 mg BID LUIS FERNANDO Administration - Patient Studies Lab Studies: Microbiology Studies 10/13/17 12:30 Blood Culture - Preliminary Blood NO GROWTH AFTER 4 DAYS 10/13/17 13:57 Blood Culture - Preliminary Blood NO GROWTH AFTER 4 DAYS 10/14/17 15:17 Urine Culture - Final Urine,Catheterized Yeast Species 10/14/17 Unknown Gram Stain - Final Trachasp Sputum Culture - Final NORMAL ORAL SILVIA Lab Studies 10/17/17 10/17/17 10/17/17 Range/Units 16:48 11:48 07:38 WBC (4.8-10.8) K/uL RBC (4.40-5.90) Mil/uL Hgb (12.0-18.0) g/dL Hct (35.0-51.0) % MCV (80.0-94.0) fL MCH (27.0-31.0) pg MCHC (33.0-37.0) g/dL RDW (11.5-14.5) % Plt Count (130-400) K/uL MPV (7.2-11.7) fL Neut % (Auto) (50.0-75.0) % Lymph % (Auto) (20.0-40.0) % Roane % (Auto) (0.0-10.0) % Eos % (Auto) (0.0-4.0) % Baso % (Auto) (0.0-2.0) % Neut # (1.8-7.0) K/uL Lymph # (1.0-4.3) K/uL Roane # (0.0-0.8) K/uL Eos # (0.0-0.7) K/uL Baso # (0.0-0.2) K/uL Neutrophils % (Manual) (50-75) % Band Neutrophils % (0-2) % Lymphocytes % (Manual) (20-40) % Monocytes % (Manual) (0-10) % Platelet Estimate (NORMAL) Large Platelets Hypochromasia (manual) Poikilocytosis (manual Anisocytosis (manual) Ovalocytes Sodium (132-148) mmol/L Potassium (3.6-5.2) mmol/L Chloride (98-107) mmol/L Carbon Dioxide (22-30) mmol/L Anion Gap (10-20) BUN (9-20) mg/dL Creatinine (0.8-1.5) mg/dL Est GFR ( Amer) Est GFR (Non-Af Amer) POC Glucose (mg/dL) 167 H 130 H 175 H (65-110) mg/dL Random Glucose (75-110) mg/dL Calcium (8.6-10.4) mg/dl Phosphorus (2.5-4.5) mg/dL Magnesium (1.6-2.3) mg/dL Total Bilirubin (0.2-1.3) mg/dL AST (17-59) U/L ALT (21-72) U/L Alkaline Phosphatase (38-126) U/L Total Protein (6.3-8.3) g/dL Albumin (3.5-5.0) g/dL Globulin (2.2-3.9) gm/dL Albumin/Globulin Ratio (1.0-2.1) C. difficile Ag & Toxin (NEGATIVE) 10/17/17 10/17/17 10/16/17 Range/Units 06:24 06:23 Unknown WBC 31.4 H (4.8-10.8) K/uL RBC 2.84 L (4.40-5.90) Mil/uL Hgb 7.5 L (12.0-18.0) g/dL Hct 24.3 L (35.0-51.0) % MCV 85.6 (80.0-94.0) fL MCH 26.3 L (27.0-31.0) pg MCHC 30.8 L (33.0-37.0) g/dL RDW 27.0 H (11.5-14.5) % Plt Count 401 H (130-400) K/uL MPV 8.6 (7.2-11.7) fL Neut % (Auto) 89.9 H (50.0-75.0) % Lymph % (Auto) 6.1 L (20.0-40.0) % Roane % (Auto) 3.2 (0.0-10.0) % Eos % (Auto) 0.5 (0.0-4.0) % Baso % (Auto) 0.3 (0.0-2.0) % Neut # 28.3 H (1.8-7.0) K/uL Lymph # 1.9 (1.0-4.3) K/uL Roane # 1.0 H (0.0-0.8) K/uL Eos # 0.2 (0.0-0.7) K/uL Baso # 0.1 (0.0-0.2) K/uL Neutrophils % (Manual) 83 H (50-75) % Band Neutrophils % 8 H (0-2) % Lymphocytes % (Manual) 6 L (20-40) % Monocytes % (Manual) 3 (0-10) % Platelet Estimate Normal (NORMAL) Large Platelets Present Hypochromasia (manual) Slight Poikilocytosis (manual Slight Anisocytosis (manual) Moderate Ovalocytes Slight Sodium 135 (132-148) mmol/L Potassium 3.6 (3.6-5.2) mmol/L Chloride 99 (98-107) mmol/L Carbon Dioxide 22 (22-30) mmol/L Anion Gap 18 (10-20) BUN 73 H (9-20) mg/dL Creatinine 5.1 H (0.8-1.5) mg/dL Est GFR ( Amer) 13 Est GFR (Non-Af Amer) 11 POC Glucose (mg/dL) (65-110) mg/dL Random Glucose 144 H (75-110) mg/dL Calcium 7.0 L (8.6-10.4) mg/dl Phosphorus 5.5 H (2.5-4.5) mg/dL Magnesium 2.3 (1.6-2.3) mg/dL Total Bilirubin 0.6 (0.2-1.3) mg/dL AST 102 H D (17-59) U/L ALT 97 H D (21-72) U/L Alkaline Phosphatase 124 (38-126) U/L Total Protein 6.6 (6.3-8.3) g/dL Albumin 2.5 L (3.5-5.0) g/dL Globulin 4.2 H (2.2-3.9) gm/dL Albumin/Globulin Ratio 0.6 L (1.0-2.1) C. difficile Ag & Toxin Negative (NEGATIVE) 10/16/17 Range/Units 21:12 WBC (4.8-10.8) K/uL RBC (4.40-5.90) Mil/uL Hgb (12.0-18.0) g/dL Hct (35.0-51.0) % MCV (80.0-94.0) fL MCH (27.0-31.0) pg MCHC (33.0-37.0) g/dL RDW (11.5-14.5) % Plt Count (130-400) K/uL MPV (7.2-11.7) fL Neut % (Auto) (50.0-75.0) % Lymph % (Auto) (20.0-40.0) % Roane % (Auto) (0.0-10.0) % Eos % (Auto) (0.0-4.0) % Baso % (Auto) (0.0-2.0) % Neut # (1.8-7.0) K/uL Lymph # (1.0-4.3) K/uL Roane # (0.0-0.8) K/uL Eos # (0.0-0.7) K/uL Baso # (0.0-0.2) K/uL Neutrophils % (Manual) (50-75) % Band Neutrophils % (0-2) % Lymphocytes % (Manual) (20-40) % Monocytes % (Manual) (0-10) % Platelet Estimate (NORMAL) Large Platelets Hypochromasia (manual) Poikilocytosis (manual Anisocytosis (manual) Ovalocytes Sodium (132-148) mmol/L Potassium (3.6-5.2) mmol/L Chloride (98-107) mmol/L Carbon Dioxide (22-30) mmol/L Anion Gap (10-20) BUN (9-20) mg/dL Creatinine (0.8-1.5) mg/dL Est GFR ( Amer) Est GFR (Non-Af Amer) POC Glucose (mg/dL) 149 H (65-110) mg/dL Random Glucose (75-110) mg/dL Calcium (8.6-10.4) mg/dl Phosphorus (2.5-4.5) mg/dL Magnesium (1.6-2.3) mg/dL Total Bilirubin (0.2-1.3) mg/dL AST (17-59) U/L ALT (21-72) U/L Alkaline Phosphatase (38-126) U/L Total Protein (6.3-8.3) g/dL Albumin (3.5-5.0) g/dL Globulin (2.2-3.9) gm/dL Albumin/Globulin Ratio (1.0-2.1) C. difficile Ag & Toxin (NEGATIVE) Laboratory Results - last 24 hr 10/16/17 10/16/17 10/17/17 21:12 Unknown 06:23 WBC 31.4 H RBC 2.84 L Hgb 7.5 L Hct 24.3 L MCV 85.6 MCH 26.3 L MCHC 30.8 L RDW 27.0 H Plt Count 401 H MPV 8.6 Neut % (Auto) 89.9 H Lymph % (Auto) 6.1 L Roane % (Auto) 3.2 Eos % (Auto) 0.5 Baso % (Auto) 0.3 Neut # 28.3 H Lymph # 1.9 Roane # 1.0 H Eos # 0.2 Baso # 0.1 Neutrophils % (Manual) 83 H Band Neutrophils % 8 H Lymphocytes % (Manual) 6 L Monocytes % (Manual) 3 Platelet Estimate Normal Large Platelets Present Hypochromasia (manual) Slight Poikilocytosis (manual Slight Anisocytosis (manual) Moderate Ovalocytes Slight Sodium Potassium Chloride Carbon Dioxide Anion Gap BUN Creatinine Est GFR ( Amer) Est GFR (Non-Af Amer) POC Glucose (mg/dL) 149 H Random Glucose Calcium Phosphorus Magnesium Total Bilirubin AST ALT Alkaline Phosphatase Total Protein Albumin Globulin Albumin/Globulin Ratio C. difficile Ag & Toxin Negative 10/17/17 10/17/17 10/17/17 06:24 07:38 11:48 WBC RBC Hgb Hct MCV MCH MCHC RDW Plt Count MPV Neut % (Auto) Lymph % (Auto) Roane % (Auto) Eos % (Auto) Baso % (Auto) Neut # Lymph # Roane # Eos # Baso # Neutrophils % (Manual) Band Neutrophils % Lymphocytes % (Manual) Monocytes % (Manual) Platelet Estimate Large Platelets Hypochromasia (manual) Poikilocytosis (manual Anisocytosis (manual) Ovalocytes Sodium 135 Potassium 3.6 Chloride 99 Carbon Dioxide 22 Anion Gap 18 BUN 73 H Creatinine 5.1 H Est GFR ( Amer) 13 Est GFR (Non-Af Amer) 11 POC Glucose (mg/dL) 175 H 130 H Random Glucose 144 H Calcium 7.0 L Phosphorus 5.5 H Magnesium 2.3 Total Bilirubin 0.6 AST 102 H D ALT 97 H D Alkaline Phosphatase 124 Total Protein 6.6 Albumin 2.5 L Globulin 4.2 H Albumin/Globulin Ratio 0.6 L C. difficile Ag & Toxin 10/17/17 16:48 WBC RBC Hgb Hct MCV MCH MCHC RDW Plt Count MPV Neut % (Auto) Lymph % (Auto) Roane % (Auto) Eos % (Auto) Baso % (Auto) Neut # Lymph # Roane # Eos # Baso # Neutrophils % (Manual) Band Neutrophils % Lymphocytes % (Manual) Monocytes % (Manual) Platelet Estimate Large Platelets Hypochromasia (manual) Poikilocytosis (manual Anisocytosis (manual) Ovalocytes Sodium Potassium Chloride Carbon Dioxide Anion Gap BUN Creatinine Est GFR ( Amer) Est GFR (Non-Af Amer) POC Glucose (mg/dL) 167 H Random Glucose Calcium Phosphorus Magnesium Total Bilirubin AST ALT Alkaline Phosphatase Total Protein Albumin Globulin Albumin/Globulin Ratio C. difficile Ag & Toxin Fingerstick Blood Sugar Results: 167 Review of Systems - Review of Systems Systems not reviewed;Unavailable: Altered Mental Status Critical Care Progress Note - Nutrition Nutrition: Nutrition Category Date Time Status NPO Diet [DIET] Diets 08/21/17 Dinner Active Assessment/Plan - Assessment and Plan (Free Text) Assessment: 77 year old male with extensive PMH and hospital stay, recently transferred to ICU for hypotension and altered mental status Plan: Neuro: Alert, non-responsive Pulm: Management: * Tracheostomy CV: Hypotension s/p Cardica arrest (08/10/17), Hx of CAD with prior stent placement, HTN, HLD, 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 Miranda, help appreciated HD (MWF) via perma cath Procrit 10,000 unit IV MWF Midodrine 5 mg PO TID Endo: DM type 2 ISS- low dose protocol Levemir 8 units [facility] Novolog 5 units AC ID: WBC - 31.4 Right plantar pressure ulcer - Dr. Lundberg consulted * offloading heel boots ID, Dr. Zimmer Help appreciated Medications: * Aztreonam 1g IVBP q24 * Cefepimne 1g PO q24 * Zyvox 600mg IVPB q12 * Flagyl 500mg GT q8 * Fluconazone 100mg IVPB q24 Prophylaxis DVT: SCDs and Eliquis 2.5mg PO BID GI: pepcid 20 mg PO daily, florastor 250mg PO BID Case discussed with Dr. Zeyad Quinonez Hien PGY1
--- NOTE | 2017-10-17 20:07 | CP.PCM.PN ---
Subjective - Date & Time of Evaluation Date of Evaluation: 10/17/17 Time of Evaluation: 11:45 - Subjective Subjective: Podiatry Progress Note- Dr. Lundberg This is a 77 yo male pt seen at bedside in ICU with Dr. Lundberg today for f/u of right foot DTI. Pt is seen in bed, unable to respond to questions at this time. No acute events. Pt seen with offloading boots to b/l lower extremities. Objective - Vital Signs/Intake and Output Vital Signs (last 24 hours): Temp Pulse Resp BP Pulse Ox 98.7 F 111 H 27 H 91/31 L 100 10/17/17 16:00 10/17/17 18:38 10/17/17 18:38 10/17/17 18:38 10/17/17 18:38 Intake and Output: 10/17/17 10/18/17 18:59 06:59 Intake Total 920 Balance 920 - Medications Medications: Current Medications Apixaban (Eliquis) 2.5 mg PO BID [facility] Last Admin: 10/17/17 18:34 Dose: 2.5 mg Collagenase (Santyl) 0 gm TOP DAILY [facility] Last Admin: 10/17/17 13:34 Dose: 1 applic Epoetin Chencho (Procrit) 10,000 unit IV MWF [facility] Last Admin: 10/17/17 10:07 Dose: 10,000 unit Famotidine (Pepcid) 20 mg PO DAILY [facility] Last Admin: 10/17/17 10:15 Dose: 20 mg Heparin Sodium (Porcine) (Heparin) 3,700 units IVP MWF [facility] Last Admin: 10/17/17 12:07 Dose: 3,700 units Cefepime HCl 1 gm/ Dextrose 50 mls @ 100 mls/hr IVPB Q24H [facility] Last Admin: 10/17/17 12:48 Dose: 100 mls/hr Fluconazole (Diflucan Iv 100 Mg/50 Ml Ns) 50 mls @ 100 mls/hr IVPB Q24H [facility] Last Admin: 10/17/17 18:45 Dose: 100 mls/hr Linezolid (Zyvox 600mg/300ml D5w) 600 mg in 300 mls @ 200 mls/hr IVPB Q12 [facility] Last Admin: 10/17/17 13:33 Dose: 200 mls/hr Aztreonam 1 gm/ Sodium (Chloride) 50 mls @ 200 mls/hr IVPB Q24H [facility] Insulin Detemir (Levemir) 8 unit SC AMHS [facility] Last Admin: 10/17/17 10:16 Dose: Not Given Insulin Human Regular (Novolin R) 5 unit SC AC [facility] Last Admin: 10/17/17 16:30 Dose: Not Given Insulin Human Regular (Novolin R) 0 unit SC ACHS [facility] PRN Reason: Protocol Last Admin: 10/17/17 18:34 Dose: 2 unit Metronidazole (Flagyl) 500 mg GT Q8 [facility] Last Admin: 10/17/17 13:33 Dose: 500 mg Midodrine (Proamatine) 5 mg PO TID [facility] Last Admin: 10/17/17 18:34 Dose: 5 mg Rosuvastatin Calcium (Crestor) 10 mg PO HS [facility] Last Admin: 10/16/17 21:11 Dose: 10 mg Saccharomyces Boulardii (Florastor) 250 mg PO BID [facility] Last Admin: 10/17/17 18:34 Dose: 250 mg - Labs Labs: 10/17/17 06:23 10/17/17 06:24 PT 13.4 SECONDS (9.7-12.2) H 10/14/17 16:30 INR 1.2 10/14/17 16:30 APTT 28 SECONDS (21-34) 10/14/17 16:30 - Constitutional Appears: Non-toxic, No Acute Distress - Extremities Exam Additional comments: B/L lower ext. exam: Vasc: DP pulses palpable along proximal arterial course bilaterally. PT pulses non-palpable bilaterally. Skin temperature warm to cold from proximal to distal , bilaterally. CFT < 7 seconds to all digits b/l. Pedal hair growth absent. No edema noted b/l Neuro: Protective sensation to sharp vs dull is grossly intact b/l Derm: Right foot plantar medial heel necrotic indurated eschar measuring 3.5x 2.3 cm noted. Steph-ulcerative area is soft to touch with underlying ecchymosis. - Psychiatric Exam Additional comments: unable to assess Assessment and Plan - Assessment and Plan (Free Text) Assessment: 77 year old male with DTI to right plantar heel 2/2 pressure Plan: Pt S&E at bedside in ICU w/ Dr. Lundberg Chart, labs, and vitals reviewed, afebrile, wbc 31.4 c/w offloading heel boots to b/l lower extremities no dressing at this time. Rajwinder d/mandy Stable per podiatry, will follow
--- NOTE | 2017-10-17 22:15 | CP.PCM.PN ---
Subjective - Date & Time of Evaluation Date of Evaluation: 10/17/17 Time of Evaluation: 10:00 - Subjective Subjective: dictated Objective - Vital Signs/Intake and Output Vital Signs (last 24 hours): Temp Pulse Resp BP Pulse Ox 97.4 F L 106 H 20 117/38 L 98 10/17/17 20:00 10/17/17 21:00 10/17/17 21:00 10/17/17 20:33 10/17/17 21:00 Intake and Output: 10/17/17 10/18/17 18:59 06:59 Intake Total 990 30 Balance 990 30 - Medications Medications: Current Medications Apixaban (Eliquis) 2.5 mg PO BID [facility] Last Admin: 10/17/17 18:34 Dose: 2.5 mg Epoetin Chencho (Procrit) 10,000 unit IV [facility] Last Admin: 10/17/17 10:07 Dose: 10,000 unit Famotidine (Pepcid) 20 mg PO DAILY [facility] Last Admin: 10/17/17 10:15 Dose: 20 mg Heparin Sodium (Porcine) (Heparin) 3,700 units IVP MWF [facility] Last Admin: 10/17/17 12:07 Dose: 3,700 units Cefepime HCl 1 gm/ Dextrose 50 mls @ 100 mls/hr IVPB Q24H [facility] Last Admin: 10/17/17 12:48 Dose: 100 mls/hr Fluconazole (Diflucan Iv 100 Mg/50 Ml Ns) 50 mls @ 100 mls/hr IVPB Q24H [facility] Last Admin: 10/17/17 18:45 Dose: 100 mls/hr Linezolid (Zyvox 600mg/300ml D5w) 600 mg in 300 mls @ 200 mls/hr IVPB Q12 [facility] Last Admin: 10/17/17 13:33 Dose: 200 mls/hr Insulin Detemir (Levemir) 8 unit SC [facility] Last Admin: 10/17/17 22:01 Dose: 8 unit Insulin Human Regular (Novolin R) 5 unit SC AC [facility] Last Admin: 10/17/17 16:30 Dose: Not Given Insulin Human Regular (Novolin R) 0 unit SC ACHS [facility] PRN Reason: Protocol Last Admin: 10/17/17 18:34 Dose: 2 unit Metronidazole (Flagyl) 500 mg GT Q8 [facility] Last Admin: 10/17/17 22:00 Dose: 500 mg Midodrine (Proamatine) 5 mg PO TID [facility] Last Admin: 10/17/17 18:34 Dose: 5 mg Rosuvastatin Calcium (Crestor) 10 mg PO HS [facility] Last Admin: 10/17/17 22:00 Dose: 10 mg Saccharomyces Boulardii (Florastor) 250 mg PO BID [facility] Last Admin: 10/17/17 18:34 Dose: 250 mg - Labs Labs: 10/17/17 06:23 10/17/17 06:24 PT 13.4 SECONDS (9.7-12.2) H 10/14/17 16:30 INR 1.2 10/14/17 16:30 APTT 28 SECONDS (21-34) 10/14/17 16:30
--- NOTE | 2017-10-18 02:59 | PN ---
DATE: SUBJECTIVE: The patient was in ICU. The Pharmacy called me as he is on too many antibiotics. We will try to curtail them. PHYSICAL EXAMINATION GENERAL: He is more comfortable now compared to when he was last seen and he is trying to focus also. VITAL SIGNS: T-max is 97.4, heart rate of 109, blood pressure 117/38, and respirations on the tracheostomy remain 20. LUNGS: Clear. Occasional rhonchi. HEART: S1, S2 is present. ABDOMEN: PEG site is unremarkable. Abdomen is soft. He does have sacral decubitus. EXTREMITIES: Remain with mild edema. He has foot protectors on, so I am unable to evaluate that. LABORATORY DATA: His white count is 31.4, hemoglobin is 7.5, and hematocrit 24.3, so he remains very anemic. Creatinine is 5.1. He is on dialysis. His cultures from 10/14/2017, urine culture came out with yeast, sputum is negative, MRSA is negative, and blood culture x2 are negative. The wound in the back has Enterobacter and germania glabrata; before, it was germania albicans, now it is germania glabrata. 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 He had a full-fledged CAT scan yesterday that shows a small subpleural posterior consolidation in both lower lobes, greater on the right, so he has pneumonia with left pleural effusion. No pneumothorax. Heart, coronary artery disease, no significant pleural effusion. Mild sigmoid diverticulitis, bilateral gluteal and coccygeal decubitus ulcers, left renal calculus, no hydronephrosis, complete renal cyst, gallstones ____ lot of things going on. MEDICATIONS: He is on Azactam, Cefepime, fluconazole, and he is on Zyvox and Flagyl. ASSESSMENT AND PLAN: His white count remains high. He is not on any steroids. So at this time, I will look into medications and try to deescalate. He is on Cefepime and Azactam. So, we will discontinue Azactam at this time and continue the rest of the antibiotics. We will need to monitor his white count and his sacral decubitus, which remains a big problem. Allan Lawrence MD
[2017-10-18 06:51] LABS: BASO % 0.1 % (0.0-2.0); EOS # 0.2 K/uL (0.0-0.7); EOS % 0.9 % (0.0-4.0); LYMPH # 1.6 K/uL (1.0-4.3); LYMPH % 7.1 % (20.0-40.0); MEAN CELL VOLUME 85.7 fL (80.0-94.0); MEAN CORPUSCULAR HEMOGLOBIN 26.8 pg (27.0-31.0); MEAN CORPUSCULAR HGB CONC 31.3 g/dL (33.0-37.0); MEAN PLATELET VOLUME 8.4 fL (7.2-11.7); MONO # 0.7 K/uL (0.0-0.8); MONO % 3.2 % (0.0-10.0); NRBC % 0.1 % (0.0-2.0); PLATELET COUNT 431 K/uL (130-400); RED CELL DISTRIBUTION WIDTH 27.9 % (11.5-14.5)
[2017-10-18 07:00] LABS: ALB/GLOB RATIO 0.9 (1.0-2.1); BILIRUBIN,TOTAL 0.8 mg/dL (0.2-1.3); CALCIUM 6.7 mg/dl (8.6-10.4); MAGNESIUM 1.9 mg/dL (1.6-2.3); PHOSPHOROUS 3.8 mg/dL (2.5-4.5); POTASSIUM 3.2 mmol/L (3.6-5.2); TOTAL PROTEIN 5.3 g/dL (6.3-8.3)
[2017-10-18] MEDS: (Novolin R) Insulin Human Regular 100 units/ml vial SC SCH ×6 (08:00→21:23)
[2017-10-18 08:16] LABS: EOSINOPHIL 1 % (0-4); NEUTROPHIL 88 % (50-75); TOTAL CELLS COUNTED 100
[2017-10-18 08:18] LABS: LARGE PLATELETS PRESENT
--- NOTE | 2017-10-18 08:33 | CP.CCUPN ---
<Cristiano Stanford - Last Filed: 10/18/17 15:42> CCU Subjective - Physician Review Subjective (Free Text): PGY1 ICU progress note for Dr. Mena Patient seen and examined at bedside this morning. Patient is resting comfortably, in no acute distress. Patient non-verbal, trach collar in place. ROS unattainable. CCU Objective - Vital Signs / Intake & Output Vital Signs (Last 4 hours): Vital Signs Pulse Resp BP Pulse Ox 10/18/17 06:34 83 26 H 100 10/18/17 05:33 114/46 L 10/18/17 05:00 95 H 26 H 100 Intake and Output (Last 8hrs): Intake & Output 10/17/17 10/18/17 10/18/17 22:59 06:59 14:59 Intake Total 910 300 Output Total 0 0 Balance 910 300 Intake: Intake, IV Amount 450 Right Proximal Port 450 Tube Feeding 240 240 Other 220 60 Output: Urine 0 0 Urine, Voided 0 0 Other: # Bowel Movements 0 0 - Physical Exam Head: Positive for: Atraumatic Pupils: Positive for: Sluggish Extroacular Muscles: Positive for: EOMI Conjunctiva: Positive for: Normal Mouth: Positive for: Moist Mucous Membranes Pharnyx: Positive for: Normal Neck: Positive for: Other (trach collar in place) Respiratory/Chest: Positive for: Clear to Auscultation, Good Air Exchange ( Anteriorly ), Other (Tracheostomy ). Negative for: Respiratory Distress Cardiovascular: Positive for: Regular Rate and Rhythm, Normal S1, S2 Abdomen: Positive for: Other (decreased bowel sounds). Negative for: Tenderness , Peritoneal Signs Upper Extremity: Positive for: NORMAL PULSES, Other (patient moving upper extremities). Negative for: Edema Lower Extremity: Negative for: Edema, CALF TENDERNESS, Swelling Neurological: Positive for: Other (alert and awake but does not respond to voice commands). Negative for: Speech Normal Skin: Positive for: Warm, Dry. Negative for: Diaphoretic Psychiatric: Positive for: Alert, Other (non-verbal, trach). Negative for: Oriented x 3 - Medications Active Medications: Active Medications Generic Name Dose Route Start Last Admin Trade Name Freq PRN Reason Stop Dose Admin Apixaban 2.5 mg 08/27/17 12:00 10/17/17 18:34 Eliquis PO 2.5 mg BID LUIS FERNANDO Administration Epoetin Chencho 10,000 unit 10/05/17 11:45 10/17/17 10:07 Procrit IV 10,000 unit [facility] Administration Famotidine 20 mg 08/09/17 10:00 10/17/17 10:15 Pepcid PO 20 mg DAILY LUIS FERNANDO Administration Heparin Sodium (Porcine) 3,700 units 10/17/17 12:00 10/17/17 12:07 Heparin IVP 3,700 units [facility] Administration Cefepime HCl 1 gm/ Dextrose 50 mls @ 100 mls/hr 10/12/17 08:30 10/17/17 12:48 IVPB 100 mls/hr Q24H LUIS FERNANDO Administration Fluconazole 50 mls @ 100 mls/hr 10/14/17 19:00 10/17/17 18:45 Diflucan Iv 100 Mg/50 Ml Ns IVPB 100 mls/hr Q24H LUIS FERNANDO Administration Linezolid 600 mg in 300 mls @ 200 mls/hr 10/16/17 22:00 10/17/17 22:17 Zyvox 600mg/300ml D5w IVPB 200 mls/hr Q12 LUIS FERNANDO Administration Insulin Detemir 8 unit 10/12/17 22:00 10/17/17 22:01 Levemir SC 8 unit [facility] Administration Insulin Human Regular 5 unit 10/12/17 16:30 10/17/17 16:30 Novolin R SC Not Given AC [facility] Insulin Human Regular 0 unit 10/14/17 07:30 10/18/17 08:00 Novolin R SC 2 unit ACHS [facility] Administration Protocol Metronidazole 500 mg 10/16/17 14:00 10/18/17 05:10 Flagyl GT 500 mg Q8 LUIS FERNANDO Administration Midodrine 5 mg 10/17/17 14:00 10/17/17 18:34 Proamatine PO 5 mg TID LUIS FERNANDO Administration Rosuvastatin Calcium 10 mg 10/02/17 22:00 10/17/17 22:00 Crestor PO 10 mg HS LUIS FERNANDO Administration Saccharomyces Boulardii 250 mg 09/26/17 18:00 10/17/17 18:34 Florastor PO 250 mg BID LUIS FERNANDO Administration - Patient Studies Lab Studies: Microbiology Studies 10/13/17 12:30 Blood Culture - Preliminary Blood NO GROWTH AFTER 4 DAYS 11/16/17 13:57 Blood Culture - Preliminary Blood NO GROWTH AFTER 4 DAYS 10/14/17 15:17 Urine Culture - Final Urine,Catheterized Yeast Species 10/14/17 Unknown Gram Stain - Final Trachasp Sputum Culture - Final NORMAL ORAL SILVIA Lab Studies 10/18/17 10/18/17 10/18/17 Range/Units 07:37 06:43 06:36 WBC 23.0 H (4.8-10.8) K/uL RBC 2.80 L (4.40-5.90) Mil/uL Hgb 7.5 L (12.0-18.0) g/dL Hct 24.0 L (35.0-51.0) % MCV 85.7 (80.0-94.0) fL MCH 26.8 L (27.0-31.0) pg MCHC 31.3 L (33.0-37.0) g/dL RDW 27.9 H (11.5-14.5) % Plt Count 431 H (130-400) K/uL MPV 8.4 (7.2-11.7) fL Neut % (Auto) 88.7 H (50.0-75.0) % Lymph % (Auto) 7.1 L (20.0-40.0) % [place] % (Auto) 3.2 (0.0-10.0) % Eos % (Auto) 0.9 (0.0-4.0) % Baso % (Auto) 0.1 (0.0-2.0) % Neut # 20.4 H (1.8-7.0) K/uL Lymph # 1.6 (1.0-4.3) K/uL [place] # 0.7 (0.0-0.8) K/uL Eos # 0.2 (0.0-0.7) K/uL Baso # 0.0 (0.0-0.2) K/uL Neutrophils % (Manual) 88 H (50-75) % Band Neutrophils % 6 H (0-2) % Lymphocytes % (Manual) 4 L (20-40) % Monocytes % (Manual) 1 (0-10) % Eosinophils % (Manual) 1 (0-4) % Toxic Granulation Present Platelet Estimate Slightly increased H (NORMAL) Large Platelets Present Hypochromasia (manual) Slight Anisocytosis (manual) Moderate Target Cells Slight Sodium 130 L (132-148) mmol/L Potassium 3.2 L (3.6-5.2) mmol/L Chloride 95 L (98-107) mmol/L Carbon Dioxide 26 (22-30) mmol/L Anion Gap 13 (10-20) BUN 38 H (9-20) mg/dL Creatinine 2.9 H (0.8-1.5) mg/dL Est GFR ( Amer) 26 Est GFR (Non-Af Amer) 21 POC Glucose (mg/dL) 178 H (65-110) mg/dL Random Glucose 177 H (75-110) mg/dL Calcium 6.7 L (8.6-10.4) mg/dl Phosphorus 3.8 (2.5-4.5) mg/dL Magnesium 1.9 (1.6-2.3) mg/dL Total Bilirubin 0.8 (0.2-1.3) mg/dL AST 65 H D (17-59) U/L ALT 76 H D (21-72) U/L Alkaline Phosphatase 122 (38-126) U/L Total Protein 5.3 L (6.3-8.3) g/dL Albumin 2.6 L (3.5-5.0) g/dL Globulin 2.8 (2.2-3.9) gm/dL Albumin/Globulin Ratio 0.9 L (1.0-2.1) C. difficile Ag & Toxin (NEGATIVE) 10/17/17 10/17/17 10/17/17 Range/Units 21:22 16:48 11:48 WBC (4.8-10.8) K/uL RBC (4.40-5.90) Mil/uL Hgb (12.0-18.0) g/dL Hct (35.0-51.0) % MCV (80.0-94.0) fL MCH (27.0-31.0) pg MCHC (33.0-37.0) g/dL RDW (11.5-14.5) % Plt Count (130-400) K/uL MPV (7.2-11.7) fL Neut % (Auto) (50.0-75.0) % Lymph % (Auto) (20.0-40.0) % [place] % (Auto) (0.0-10.0) % Eos % (Auto) (0.0-4.0) % Baso % (Auto) (0.0-2.0) % Neut # (1.8-7.0) K/uL Lymph # (1.0-4.3) K/uL [place] # (0.0-0.8) K/uL Eos # (0.0-0.7) K/uL Baso # (0.0-0.2) K/uL Neutrophils % (Manual) (50-75) % Band Neutrophils % (0-2) % Lymphocytes % (Manual) (20-40) % Monocytes % (Manual) (0-10) % Eosinophils % (Manual) (0-4) % Toxic Granulation Platelet Estimate (NORMAL) Large Platelets Hypochromasia (manual) Anisocytosis (manual) Target Cells Sodium (132-148) mmol/L Potassium (3.6-5.2) mmol/L Chloride (98-107) mmol/L Carbon Dioxide (22-30) mmol/L Anion Gap (10-20) BUN (9-20) mg/dL Creatinine (0.8-1.5) mg/dL Est GFR ( Amer) Est GFR (Non-Af Amer) POC Glucose (mg/dL) 196 H 167 H 130 H (65-110) mg/dL Random Glucose (75-110) mg/dL Calcium (8.6-10.4) mg/dl Phosphorus (2.5-4.5) mg/dL Magnesium (1.6-2.3) mg/dL Total Bilirubin (0.2-1.3) mg/dL AST (17-59) U/L ALT (21-72) U/L Alkaline Phosphatase (38-126) U/L Total Protein (6.3-8.3) g/dL Albumin (3.5-5.0) g/dL Globulin (2.2-3.9) gm/dL Albumin/Globulin Ratio (1.0-2.1) C. difficile Ag & Toxin (NEGATIVE) 10/16/17 Range/Units Unknown WBC (4.8-10.8) K/uL RBC (4.40-5.90) Mil/uL Hgb (12.0-18.0) g/dL Hct (35.0-51.0) % MCV (80.0-94.0) fL MCH (27.0-31.0) pg MCHC (33.0-37.0) g/dL RDW (11.5-14.5) % Plt Count (130-400) K/uL MPV (7.2-11.7) fL Neut % (Auto) (50.0-75.0) % Lymph % (Auto) (20.0-40.0) % [place] % (Auto) (0.0-10.0) % Eos % (Auto) (0.0-4.0) % Baso % (Auto) (0.0-2.0) % Neut # (1.8-7.0) K/uL Lymph # (1.0-4.3) K/uL [place] # (0.0-0.8) K/uL Eos # (0.0-0.7) K/uL Baso # (0.0-0.2) K/uL Neutrophils % (Manual) (50-75) % Band Neutrophils % (0-2) % Lymphocytes % (Manual) (20-40) % Monocytes % (Manual) (0-10) % Eosinophils % (Manual) (0-4) % Toxic Granulation Platelet Estimate (NORMAL) Large Platelets Hypochromasia (manual) Anisocytosis (manual) Target Cells Sodium (132-148) mmol/L Potassium (3.6-5.2) mmol/L Chloride (98-107) mmol/L Carbon Dioxide (22-30) mmol/L Anion Gap (10-20) BUN (9-20) mg/dL Creatinine (0.8-1.5) mg/dL Est GFR ( Amer) Est GFR (Non-Af Amer) POC Glucose (mg/dL) (65-110) mg/dL Random Glucose (75-110) mg/dL Calcium (8.6-10.4) mg/dl Phosphorus (2.5-4.5) mg/dL Magnesium (1.6-2.3) mg/dL Total Bilirubin (0.2-1.3) mg/dL AST (17-59) U/L ALT (21-72) U/L Alkaline Phosphatase (38-126) U/L Total Protein (6.3-8.3) g/dL Albumin (3.5-5.0) g/dL Globulin (2.2-3.9) gm/dL Albumin/Globulin Ratio (1.0-2.1) C. difficile Ag & Toxin Negative (NEGATIVE) Laboratory Results - last 24 hr 10/16/17 10/17/17 10/17/17 Unknown 11:48 16:48 WBC RBC Hgb Hct MCV MCH MCHC RDW Plt Count MPV Neut % (Auto) Lymph % (Auto) [place] % (Auto) Eos % (Auto) Baso % (Auto) Neut # Lymph # [place] # Eos # Baso # Neutrophils % (Manual) Band Neutrophils % Lymphocytes % (Manual) Monocytes % (Manual) Eosinophils % (Manual) Toxic Granulation Platelet Estimate Large Platelets Hypochromasia (manual) Anisocytosis (manual) Target Cells Sodium Potassium Chloride Carbon Dioxide Anion Gap BUN Creatinine Est GFR ( Amer) Est GFR (Non-Af Amer) POC Glucose (mg/dL) 130 H 167 H Random Glucose Calcium Phosphorus Magnesium Total Bilirubin AST ALT Alkaline Phosphatase Total Protein Albumin Globulin Albumin/Globulin Ratio C. difficile Ag & Toxin Negative 10/17/17 10/18/17 10/18/17 21:22 06:36 06:43 WBC 23.0 H RBC 2.80 L Hgb 7.5 L Hct 24.0 L MCV 85.7 MCH 26.8 L MCHC 31.3 L RDW 27.9 H Plt Count 431 H MPV 8.4 Neut % (Auto) 88.7 H Lymph % (Auto) 7.1 L [place] % (Auto) 3.2 Eos % (Auto) 0.9 Baso % (Auto) 0.1 Neut # 20.4 H Lymph # 1.6 [place] # 0.7 Eos # 0.2 Baso # 0.0 Neutrophils % (Manual) 88 H Band Neutrophils % 6 H Lymphocytes % (Manual) 4 L Monocytes % (Manual) 1 Eosinophils % (Manual) 1 Toxic Granulation Present Platelet Estimate Slightly increased H Large Platelets Present Hypochromasia (manual) Slight Anisocytosis (manual) Moderate Target Cells Slight Sodium 130 L Potassium 3.2 L Chloride 95 L Carbon Dioxide 26 Anion Gap 13 BUN 38 H Creatinine 2.9 H Est GFR ( Amer) 26 Est GFR (Non-Af Amer) 21 POC Glucose (mg/dL) 196 H Random Glucose 177 H Calcium 6.7 L Phosphorus 3.8 Magnesium 1.9 Total Bilirubin 0.8 AST 65 H D ALT 76 H D Alkaline Phosphatase 122 Total Protein 5.3 L Albumin 2.6 L Globulin 2.8 Albumin/Globulin Ratio 0.9 L C. difficile Ag & Toxin 10/18/17 07:37 WBC RBC Hgb Hct MCV MCH MCHC RDW Plt Count MPV Neut % (Auto) Lymph % (Auto) [place] % (Auto) Eos % (Auto) Baso % (Auto) Neut # Lymph # [place] # Eos # Baso # Neutrophils % (Manual) Band Neutrophils % Lymphocytes % (Manual) Monocytes % (Manual) Eosinophils % (Manual) Toxic Granulation Platelet Estimate Large Platelets Hypochromasia (manual) Anisocytosis (manual) Target Cells Sodium Potassium Chloride Carbon Dioxide Anion Gap BUN Creatinine Est GFR ( Amer) Est GFR (Non-Af Amer) POC Glucose (mg/dL) 178 H Random Glucose Calcium Phosphorus Magnesium Total Bilirubin AST ALT Alkaline Phosphatase Total Protein Albumin Globulin Albumin/Globulin Ratio C. difficile Ag & Toxin Fingerstick Blood Sugar Results: 196 Review of Systems - Review of Systems Systems not reviewed;Unavailable: Altered Mental Status Critical Care Progress Note - Nutrition Nutrition: Nutrition Category Date Time Status NPO Diet [DIET] Diets 08/21/17 Dinner Active Assessment/Plan - Assessment and Plan (Free Text) Assessment: 77 year old male with extensive PMH and hospital stay, recently transferred to ICU for hypotension and altered mental status Plan: Neuro: Alert, non-responsive Pulm: Management: * Tracheostomy CV: Hypotension s/p Cardica arrest (08/10/17), Hx of CAD with prior stent placement, HTN, HLD, [employer]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 Crawford consulted, help appreciated Hgb 7.5, stable from yesterday 7.5 f/u heme recs - f/u retic count, B12, Folate --> will replete B12 with IM injection if low. discuss with Nephro of possibility of increasing procrit with HD - Ferretin 1380 (10/11) --> anemia likely due to chronic disease ID: WBC - improved to 23.0 from 31.4 Right plantar pressure ulcer - Dr. Lundberg consulted * offloading heel boots ID, Dr. Zimmer Help appreciated Medications: * Aztreonam 1g IVBP q24 * Cefepimne 1g PO q24 * Zyvox 600mg IVPB q12 * Flagyl 500mg GT q8 * Fluconazone 100mg IVPB q24 Prophylaxis DVT: SCDs and Eliquis 2.5mg PO BID GI: pepcid 20 mg PO daily, florastor 250mg PO BID Case discussed with Dr. Rajesh Quinonez Hien PGY1 <Elkin Mena - Last Filed: 10/19/17 17:12> CCU Objective - Vital Signs / Intake & Output Vital Signs (Last 4 hours): Vital Signs Temp Pulse Resp BP Pulse Ox 10/18/17 18:00 91 H 18 91/56 L 98 10/18/17 17:00 97 H 20 82/40 L 99 10/18/17 16:00 99.3 F 102 H 18 105/40 L 98 10/18/17 15:00 89 20 90/40 L 98 Intake and Output (Last 8hrs): Intake & Output 10/18/17 10/18/17 10/18/17 06:59 14:59 22:59 Intake Total 300 240 320 Output Total 0 0 Balance 300 240 320 Weight 165 lb 5.547 oz Intake: Tube Feeding 240 240 120 Other 60 200 Output: Urine 0 0 Urine, Voided 0 0 Other: # Bowel Movements 0 0 - Medications Active Medications: Active Medications Generic Name Dose Route Start Last Admin Trade Name Freq PRN Reason Stop Dose Admin Apixaban 2.5 mg 08/27/17 12:00 10/18/17 17:43 Eliquis PO 2.5 mg BID LUIS FERNANDO Administration Epoetin Chencho 10,000 unit 10/05/17 11:45 10/17/17 10:07 Procrit IV 10,000 unit MWF LUIS FERNANDO Administration Famotidine 20 mg 08/09/17 10:00 10/18/17 09:57 Pepcid PO 20 mg DAILY LUIS FERNANDO Administration Heparin Sodium (Porcine) 3,700 units 10/17/17 12:00 10/17/17 12:07 Heparin IVP 3,700 units MWF LUIS FERNANDO Administration Cefepime HCl 1 gm/ Dextrose 50 mls @ 100 mls/hr 10/12/17 08:30 10/18/17 08:37 IVPB 100 mls/hr Q24H LUIS FERNANDO Administration Fluconazole 50 mls @ 100 mls/hr 10/14/17 19:00 10/18/17 18:33 Diflucan Iv 100 Mg/50 Ml Ns IVPB 100 mls/hr Q24H LUIS FERNANDO Administration Linezolid 600 mg in 300 mls @ 200 mls/hr 10/16/17 22:00 10/18/17 09:53 Zyvox 600mg/300ml D5w IVPB 200 mls/hr Q12 LUIS FERNANDO Administration Insulin Detemir 8 unit 10/12/17 22:00 10/18/17 09:56 Levemir SC 8 unit [facility] Administration Insulin Human Regular 5 unit 10/12/17 16:30 10/18/17 16:30 Novolin R SC Not Given AC [facility] Insulin Human Regular 0 unit 10/14/17 07:30 10/18/17 17:13 Novolin R SC Not Given ACHS [facility] Protocol Metronidazole 500 mg 10/16/17 14:00 10/18/17 15:00 Flagyl GT 500 mg Q8 LUIS FERNANDO Administration Midodrine 5 mg 10/17/17 14:00 10/18/17 17:41 Proamatine PO 5 mg TID [facility] Administration Rosuvastatin Calcium 10 mg 10/02/17 22:00 10/17/17 22:00 Crestor PO 10 mg HS [facility] Administration Saccharomyces Boulardii 250 mg 09/26/17 18:00 10/18/17 17:41 Florastor PO 250 mg BID LUIS FERNANDO Administration - Patient Studies Lab Studies: Microbiology Studies 10/13/17 12:30 Blood Culture - Final Blood NO GROWTH AFTER 5 DAYS Gram Stain - Final TEST NOT PERFORMED 10/13/17 13:57 Blood Culture - Final Blood NO GROWTH AFTER 5 DAYS Gram Stain - Final TEST NOT PERFORMED Lab Studies 10/18/17 10/18/17 10/18/17 Range/Units 16:27 11:16 07:37 WBC (4.8-10.8) K/uL RBC (4.40-5.90) Mil/uL Hgb (12.0-18.0) g/dL Hct (35.0-51.0) % MCV (80.0-94.0) fL MCH (27.0-31.0) pg MCHC (33.0-37.0) g/dL RDW (11.5-14.5) % Plt Count (130-400) K/uL MPV (7.2-11.7) fL Neut % (Auto) (50.0-75.0) % Lymph % (Auto) (20.0-40.0) % [place] % (Auto) (0.0-10.0) % Eos % (Auto) (0.0-4.0) % Baso % (Auto) (0.0-2.0) % Neut # (1.8-7.0) K/uL Lymph # (1.0-4.3) K/uL [place] # (0.0-0.8) K/uL Eos # (0.0-0.7) K/uL Baso # (0.0-0.2) K/uL Neutrophils % (Manual) (50-75) % Band Neutrophils % (0-2) % Lymphocytes % (Manual) (20-40) % Monocytes % (Manual) (0-10) % Eosinophils % (Manual) (0-4) % Toxic Granulation Platelet Estimate (NORMAL) Large Platelets Hypochromasia (manual) Anisocytosis (manual) Target Cells Sodium (132-148) mmol/L Potassium (3.6-5.2) mmol/L Chloride (98-107) mmol/L Carbon Dioxide (22-30) mmol/L Anion Gap (10-20) BUN (9-20) mg/dL Creatinine (0.8-1.5) mg/dL Est GFR ( Amer) Est GFR (Non-Af Amer) POC Glucose (mg/dL) 109 197 H 178 H (65-110) mg/dL Random Glucose (75-110) mg/dL Calcium (8.6-10.4) mg/dl Phosphorus (2.5-4.5) mg/dL Magnesium (1.6-2.3) mg/dL Total Bilirubin (0.2-1.3) mg/dL AST (17-59) U/L ALT (21-72) U/L Alkaline Phosphatase (38-126) U/L Total Protein (6.3-8.3) g/dL Albumin (3.5-5.0) g/dL Globulin (2.2-3.9) gm/dL Albumin/Globulin Ratio (1.0-2.1) 10/18/17 10/18/17 10/17/17 Range/Units 06:43 06:36 21:22 WBC 23.0 H (4.8-10.8) K/uL RBC 2.80 L (4.40-5.90) Mil/uL Hgb 7.5 L (12.0-18.0) g/dL Hct 24.0 L (35.0-51.0) % MCV 85.7 (80.0-94.0) fL MCH 26.8 L (27.0-31.0) pg MCHC 31.3 L (33.0-37.0) g/dL RDW 27.9 H (11.5-14.5) % Plt Count 431 H (130-400) K/uL MPV 8.4 (7.2-11.7) fL Neut % (Auto) 88.7 H (50.0-75.0) % Lymph % (Auto) 7.1 L (20.0-40.0) % [place] % (Auto) 3.2 (0.0-10.0) % Eos % (Auto) 0.9 (0.0-4.0) % Baso % (Auto) 0.1 (0.0-2.0) % Neut # 20.4 H (1.8-7.0) K/uL Lymph # 1.6 (1.0-4.3) K/uL [place] # 0.7 (0.0-0.8) K/uL Eos # 0.2 (0.0-0.7) K/uL Baso # 0.0 (0.0-0.2) K/uL Neutrophils % (Manual) 88 H (50-75) % Band Neutrophils % 6 H (0-2) % Lymphocytes % (Manual) 4 L (20-40) % Monocytes % (Manual) 1 (0-10) % Eosinophils % (Manual) 1 (0-4) % Toxic Granulation Present Platelet Estimate Slightly increased H (NORMAL) Large Platelets Present Hypochromasia (manual) Slight Anisocytosis (manual) Moderate Target Cells Slight Sodium 130 L (132-148) mmol/L Potassium 3.2 L (3.6-5.2) mmol/L Chloride 95 L (98-107) mmol/L Carbon Dioxide 26 (22-30) mmol/L Anion Gap 13 (10-20) BUN 38 H (9-20) mg/dL Creatinine 2.9 H (0.8-1.5) mg/dL Est GFR ( Amer) 26 Est GFR (Non-Af Amer) 21 POC Glucose (mg/dL) 196 H (65-110) mg/dL Random Glucose 177 H (75-110) mg/dL Calcium 6.7 L (8.6-10.4) mg/dl Phosphorus 3.8 (2.5-4.5) mg/dL Magnesium 1.9 (1.6-2.3) mg/dL Total Bilirubin 0.8 (0.2-1.3) mg/dL AST 65 H D (17-59) U/L ALT 76 H D (21-72) U/L Alkaline Phosphatase 122 (38-126) U/L Total Protein 5.3 L (6.3-8.3) g/dL Albumin 2.6 L (3.5-5.0) g/dL Globulin 2.8 (2.2-3.9) gm/dL Albumin/Globulin Ratio 0.9 L (1.0-2.1) Laboratory Results - last 24 hr 10/17/17 10/18/17 10/18/17 21:22 06:36 06:43 WBC 23.0 H RBC 2.80 L Hgb 7.5 L Hct 24.0 L MCV 85.7 MCH 26.8 L MCHC 31.3 L RDW 27.9 H Plt Count 431 H MPV 8.4 Neut % (Auto) 88.7 H Lymph % (Auto) 7.1 L [place] % (Auto) 3.2 Eos % (Auto) 0.9 Baso % (Auto) 0.1 Neut # 20.4 H Lymph # 1.6 [place] # 0.7 Eos # 0.2 Baso # 0.0 Neutrophils % (Manual) 88 H Band Neutrophils % 6 H Lymphocytes % (Manual) 4 L Monocytes % (Manual) 1 Eosinophils % (Manual) 1 Toxic Granulation Present Platelet Estimate Slightly increased H Large Platelets Present Hypochromasia (manual) Slight Anisocytosis (manual) Moderate Target Cells Slight Sodium 130 L Potassium 3.2 L Chloride 95 L Carbon Dioxide 26 Anion Gap 13 BUN 38 H Creatinine 2.9 H Est GFR ( Amer) 26 Est GFR (Non-Af Amer) 21 POC Glucose (mg/dL) 196 H Random Glucose 177 H Calcium 6.7 L Phosphorus 3.8 Magnesium 1.9 Total Bilirubin 0.8 AST 65 H D ALT 76 H D Alkaline Phosphatase 122 Total Protein 5.3 L Albumin 2.6 L Globulin 2.8 Albumin/Globulin Ratio 0.9 L 10/18/17 10/18/17 10/18/17 07:37 11:16 16:27 WBC RBC Hgb Hct MCV MCH MCHC RDW Plt Count MPV Neut % (Auto) Lymph % (Auto) [place] % (Auto) Eos % (Auto) Baso % (Auto) Neut # Lymph # [place] # Eos # Baso # Neutrophils % (Manual) Band Neutrophils % Lymphocytes % (Manual) Monocytes % (Manual) Eosinophils % (Manual) Toxic Granulation Platelet Estimate Large Platelets Hypochromasia (manual) Anisocytosis (manual) Target Cells Sodium Potassium Chloride Carbon Dioxide Anion Gap BUN Creatinine Est GFR ( Amer) Est GFR (Non-Af Amer) POC Glucose (mg/dL) 178 H 197 H 109 Random Glucose Calcium Phosphorus Magnesium Total Bilirubin AST ALT Alkaline Phosphatase Total Protein Albumin Globulin Albumin/Globulin Ratio Critical Care Progress Note - Nutrition Nutrition: Nutrition Category Date Time Status NPO Diet [DIET] Diets 08/21/17 Dinner Active Assessment/Plan (1) Hypotension (arterial) Current Visit: Yes Status: Acute Comment: Patient is hypotensive secondary to sepsis Elevated white count and pro-calcitonin level Antibiotics as per infectious disease Continue trach collar Pressors as needed (2) Pneumonia Current Visit: Yes Status: Acute (3) Cardiac arrest Current Visit: Yes Status: Acute (4) History of DVT (deep vein thrombosis) Current Visit: Yes Status: Acute (5) CKD (chronic kidney disease) Current Visit: No Status: Chronic Comment: (6) CHF (congestive heart failure) Current Visit: Yes Status: Acute Attending/Attestation - Attestation I have personally seen and examined this patient.: Yes I have fully participated in the care of the patient.: Yes I have reviewed all pertinent clinical information: Yes Notes (Text): Patient seen and examined in the intensive care unit. Continue hemodialysis Continue antibiotics Pressors if needed Case discussed with family at length
[2017-10-18] MEDS: Linezolid 600 mg in D5W 300 ml 600 MG/300 ML BAG IVPB SCH ×2 (09:53→21:01)
[2017-10-18] MEDS: Saccharomyces Boulardi 250 mg Cap PO SCH ×2 (09:53→17:41)
[2017-10-18] MEDS: Insulin Detemir 100 units/ml Vial (Levemir) SC SCH ×2 (09:56→21:22)
--- NOTE | 2017-10-18 12:10 | CP.PCM.PN ---
Subjective - Date & Time of Evaluation Date of Evaluation: 10/18/17 Time of Evaluation: 12:07 - Subjective Subjective: seen and examined bp stable pt obtunded, unable to obtain ros Objective - Vital Signs/Intake and Output Vital Signs (last 24 hours): Temp Pulse Resp BP Pulse Ox 98.2 F 88 18 92/40 L 100 10/18/17 08:00 10/18/17 11:00 10/18/17 11:00 10/18/17 11:00 10/18/17 11:00 Intake and Output: 10/18/17 10/18/17 06:59 18:59 Intake Total 890 150 Output Total 0 0 Balance 890 150 - Medications Medications: Current Medications Apixaban (Eliquis) 2.5 mg PO BID [facility] Last Admin: 10/18/17 09:55 Dose: 2.5 mg Epoetin Chencho (Procrit) 10,000 unit IV MWF [facility] Last Admin: 10/17/17 10:07 Dose: 10,000 unit Famotidine (Pepcid) 20 mg PO DAILY [facility] Last Admin: 10/18/17 09:57 Dose: 20 mg Heparin Sodium (Porcine) (Heparin) 3,700 units IVP MWF [facility] Last Admin: 10/17/17 12:07 Dose: 3,700 units Cefepime HCl 1 gm/ Dextrose 50 mls @ 100 mls/hr IVPB Q24H [facility] Last Admin: 10/18/17 08:37 Dose: 100 mls/hr Fluconazole (Diflucan Iv 100 Mg/50 Ml Ns) 50 mls @ 100 mls/hr IVPB Q24H [facility] Last Admin: 10/17/17 18:45 Dose: 100 mls/hr Linezolid (Zyvox 600mg/300ml D5w) 600 mg in 300 mls @ 200 mls/hr IVPB Q12 [facility] Last Admin: 10/18/17 09:53 Dose: 200 mls/hr Insulin Detemir (Levemir) 8 unit SC AMHS [facility] Last Admin: 10/18/17 09:56 Dose: 8 unit Insulin Human Regular (Novolin R) 5 unit SC AC [facility] Last Admin: 10/18/17 08:00 Dose: 5 unit Insulin Human Regular (Novolin R) 0 unit SC ACHS [facility] PRN Reason: Protocol Last Admin: 10/18/17 08:00 Dose: 2 unit Metronidazole (Flagyl) 500 mg GT Q8 [facility] Last Admin: 10/18/17 05:10 Dose: 500 mg Midodrine (Proamatine) 5 mg PO TID [facility] Last Admin: 10/18/17 09:53 Dose: 5 mg Rosuvastatin Calcium (Crestor) 10 mg PO HS [facility] Last Admin: 10/17/17 22:00 Dose: 10 mg Saccharomyces Boulardii (Florastor) 250 mg PO BID [facility] Last Admin: 10/18/17 09:53 Dose: 250 mg - Labs Labs: 10/18/17 06:43 10/18/17 06:36 PT 13.4 SECONDS (9.7-12.2) H 10/14/17 16:30 INR 1.2 10/14/17 16:30 APTT 28 SECONDS (21-34) 10/14/17 16:30 - Constitutional Appears: Non-toxic, No Acute Distress, Chronically Ill - Head Exam Head Exam: NORMAL INSPECTION - Eye Exam Eye Exam: Normal appearance - ENT Exam ENT Exam: Mucous Membranes Dry - Neck Exam Additional comments: tracheostomy - Respiratory Exam Respiratory Exam: Decreased Breath Sounds, NORMAL BREATHING PATTERN - Cardiovascular Exam Cardiovascular Exam: Tachycardia, REGULAR RHYTHM - GI/Abdominal Exam GI & Abdominal Exam: Distended, Soft - Extremities Exam Extremities Exam: Normal Inspection - Back Exam Back Exam: NORMAL INSPECTION - Neurological Exam Additional comments: obtunded - Skin Skin Exam: Normal Color, Warm Assessment and Plan (1) Acute on chronic renal failure Status: Resolved (2) CHF (congestive heart failure) Status: Acute (3) History of DVT (deep vein thrombosis) Status: Acute (4) CAD (coronary artery disease) Status: Chronic (5) CKD (chronic kidney disease) Status: Chronic - Assessment and Plan (Free Text) Assessment: maintain hd schedule mwf
--- NOTE | 2017-10-18 18:20 | CP.PCM.PN ---
Subjective - Date & Time of Evaluation Date of Evaluation: 10/18/17 Time of Evaluation: 18:19 - Subjective Subjective: non verbal trach Objective - Vital Signs/Intake and Output Vital Signs (last 24 hours): Temp Pulse Resp BP Pulse Ox 99.3 F 91 H 18 91/56 L 98 10/18/17 16:00 10/18/17 18:00 10/18/17 18:00 10/18/17 18:00 10/18/17 18:00 Intake and Output: 10/18/17 10/18/17 06:59 18:59 Intake Total 890 560 Output Total 0 0 Balance 890 560 - Medications Medications: Current Medications Apixaban (Eliquis) 2.5 mg PO BID [facility] Last Admin: 10/18/17 17:43 Dose: 2.5 mg Epoetin Chencho (Procrit) 10,000 unit [place] [facility] Last Admin: 10/17/17 10:07 Dose: 10,000 unit Famotidine (Pepcid) 20 mg PO DAILY [facility] Last Admin: 10/18/17 09:57 Dose: 20 mg Heparin Sodium (Porcine) (Heparin) 3,700 units IVP MWF [facility] Last Admin: 10/17/17 12:07 Dose: 3,700 units Cefepime HCl 1 gm/ Dextrose 50 mls @ 100 mls/hr IVPB Q24H [facility] Last Admin: 10/18/17 08:37 Dose: 100 mls/hr Fluconazole (Diflucan Iv 100 Mg/50 Ml Ns) 50 mls @ 100 mls/hr IVPB Q24H [facility] Last Admin: 10/17/17 18:45 Dose: 100 mls/hr Linezolid (Zyvox 600mg/300ml D5w) 600 mg in 300 mls @ 200 mls/hr IVPB Q12 [facility] Last Admin: 10/18/17 09:53 Dose: 200 mls/hr Insulin Detemir (Levemir) 8 unit SC AMHS [facility] Last Admin: 10/18/17 09:56 Dose: 8 unit Insulin Human Regular (Novolin R) 5 unit SC AC [facility] Last Admin: 10/18/17 16:30 Dose: Not Given Insulin Human Regular (Novolin R) 0 unit SC ACHS [facility] PRN Reason: Protocol Last Admin: 10/18/17 17:13 Dose: Not Given Metronidazole (Flagyl) 500 mg GT Q8 [facility] Last Admin: 10/18/17 15:00 Dose: 500 mg Midodrine (Proamatine) 5 mg PO TID [facility] Last Admin: 10/18/17 17:41 Dose: 5 mg Rosuvastatin Calcium (Crestor) 10 mg PO HS [facility] Last Admin: 10/17/17 22:00 Dose: 10 mg Saccharomyces Boulardii (Florastor) 250 mg PO BID [facility] Last Admin: 10/18/17 17:41 Dose: 250 mg - Labs Labs: 10/18/17 06:43 10/18/17 06:36 PT 13.4 SECONDS (9.7-12.2) H 10/14/17 16:30 INR 1.2 10/14/17 16:30 APTT 28 SECONDS (21-34) 10/14/17 16:30 - Constitutional Appears: Non-toxic, No Acute Distress - Respiratory Exam Respiratory Exam: Rhonchi, NORMAL BREATHING PATTERN - Cardiovascular Exam Cardiovascular Exam: +S1, +S2 - GI/Abdominal Exam GI & Abdominal Exam: Soft, Normal Bowel Sounds. absent: Tenderness Additional comments: peg - Neurological Exam Neurological Exam: Alert, Awake. absent: Oriented x3 Assessment and Plan - Assessment and Plan (Free Text) Assessment: (1) Acute Respiratory Failure ARDS Cardiac Arrest Pulmonary Edema Nonstemi Assessment and Plan: * Code Blue on 08/10: asystole, cardiopulmonary resuscitative measures initiated , requiring 3 epis, bicarbonate, ROSC achieved and intubated and brought to the ICU for further management; Patient in the ICU from 08/10 until present. * Pulmonary: Dr Mena (Dr. Jeffers covering until 09/04/17)-->help appreciated * Cardiology: Dr. Cortés on board-->help appreciated * GI (Dr. Wills) on board-->help appreciated * S/P Tracheostomy 08/22 * S/P Peg tube placement 08/25 * s/p insertion of right posterior chest tube 08/19-->removed 08/24/17 * Passy Flex Trach placed 09/15 * There was consideration for possible thoracentesis of left side pleural effusion, evaluated by IR, there is no fluid to drain per Dr. Gross * Chest xray (08/26): right arm PICC is seen with the tip of distal subclavian vein. PICC may be used * Chest Xray (09/20/17): lines and tubes stable position, left-sided pacemaker, moderate venous congestion, left basilar opacity with associated small left pleural effusion, Cardiomegaly. Prominent aorta, degenrative changes in spine and shoulders * Medications: * Acetylcysteine 20% 4ml INH RQ6H * Duoneb 3ml INH RQ6H * Aspirin 81mg PO daily * Eliquis 2.5mg PO bid * off Lopressor 50mg PO bid * Pulmonary and cardiology following * Pending pulmonary to determine when patient is stable for decannulation * Order ABG and portable chest xray (2) Abnormal Stress Test History of AICD History of Coronary Artery Disease Assessment and Plan: * Cardiology (Dr. Cortés) on board-->help appreciated * TSH: 1.16; T4: 1.53 * Echocardiogram (08/08/17): left ventricle systolic function is severely impaired. EF: 25-30%; global hypokinesis of left ventricle mild aortic regurgitation. Mitral regurgitation is moderate. Moderate-severe pulmonary hypertension * Plan was for cardiac catheterization; delayed due to acute renal failure; Attempted gentle hydration and mucomyst on 08/09 to optimize prior to cath * On 08/10, patient was in asystole, ACLS protocol, ROSC achieved, intubated and transfered to the ICU. Patient in acute pulmonary edema. * Patient hospitalized and require to and from ICU twice during this admission * Cardiac cath postponed at this time * Medications: * Acetylcysteine 20% 4ml INH RQ6H * Duoneb 3ml INH RQ6H * Aspirin 81mg PO daily * Eliquis 2.5mg PO bid * off Lopressor 50mg PO bid given hypotension * Crestor 10mg POqHS * Lisinopril 5mg PO daily (3) Atrial flutter Assessment and Plan: * Cardiology (Dr. Cortés) on board-->help appreciated * Refractory to Lopressor/Cardizem IVP * c/w Eliquis 2.5mg PO bid * off Lopressor 50mg PO bid Status: Resolved (4) Acute on Chronic Systolic CHF exacerbation Assessment and Plan: * Cardiology (Dr. Cortés) on board-->help appreciated * Transferred to the ICU on 08/10 following cardiac arrest and intubation. * Echocardiogram (08/08/17): left ventricular systolic function is severely impaired. EF: 25-30%; global hypokinesis of left ventricle mild aortic regurgitation. Mitral regurgitation is moderate. Moderate-severe pulmonary hypertension * Medications: * Aspirin 81mg PO daily * Lopressor 50mg PO bid-->held 10/14/17 * Lisinopril 5mg PO daily * Crestor 10mg POqHS Status: Stable (5) Leukocytosis Assessment and Plan: * Infectious Disease (Dr. Lawrence) on board-->help appreciated * Increasing; 40.4 * Abnormal UA wit pyuria/hematuria; Pending Urine culture (10/14) * Portable chest xray (10/14) * Heel eschar-->will ask for podiatry consult; surgery has said in the past no intervention. * patient is on Cefepime 1 gram IV Q24H (active 10/12/17), Aztreonam 1 gram IV Q 24H (active since 10/13/17), and Zyvox 600mg PO BID (active since 10/14/17) and Diflucan 100mg IV Q 24 (active since 10/14/17) * Etiology: pneumonia, and sacral decub; patient has alot of secretions; nursing and respiratory are suctioning * Pleural Fluid 08/19/17 did not show any growth * Blood cultures (09/13): no growth X5 days X2 * Blood cultures (09/07) during dialysis: no growth X5 days X2 * UA and urine culture (08/27): Yeast Species. * UA and urine culture (09/13): Yeast Species. 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 * Sacral Ulcer (09/15/17): VRE and Reny Albicans * Sacral Ulcer (09/20/17): VRE and Reny Albicans * Sacral Ulcer (09/30/17): Enterobacter Aerogenes-->Sensitive Cefepime IV * Blood cultures (10/13/17): no growth for 24 hours X2 * Bone Scan performed 09/17/17 to check for Osteomyelitis at the Sacrum: negative for osteomyelitis * c/w Tigecycline (09/16/17): which will cover the VRE in Sacral Wound Culture 09/14/17 and repeat on 09/20/17--to finished 10/05/17 * c/w Diflucan 200 mg PO 1x/day (09/13/17-10/16/17: which will cover with Yeast in the Sputum, Urine, and Sacral Wound Culture-->stopped on 10/06/17; restarted 10/14/17- present * Procalcitionin: 8.60 (09/06/17)-->5.80 (09/20)-->2.86 (10/04)--->4.91 (10/12) * Per ID, Patient started on Cefepime 1 gram IV Q24H (active 10/12/17), Aztreonam 1 gram IV Q 24H (active since 10/13/17), and Zyvox 600mg PO BID ( active since 10/14/17) Status: Acute (6) Pneumonia Assessment and Plan: * Pulmonary (Dr. Mnea) on board-->help appreciated * Infectious Disease (Dr. Lawrence)-->help appreciated * Rapid A strep, Influenza A and B studies, Urine Legionella, Mycoplasma studies = Negative * Florastor 250mg PO bid * 08/07/17: +Strep Pneumoniae in the urine * Meropenem 500mg IV Q 8 hours (08/14/17 through 08/18/17) and Zosyn 2.25 mg IV Q6H (08/13/17 through 08/18/17) * Cefepime 1 gm IV Q24H: started on 08/19/17 and was discontinued by ID Dr. Lawrence on 08/30/17: monitor vitals and labs * Restarted on 10/12/17 * s/p right posterior chest tube 08/19-08/24 * Sputum Culture 08/19/17 shows No growth * Pleural fluid 08/19/17: No growth * 09/07/17 Sputum: Enterocloace Bacter and Yeast Species: See Antibiotic treatment in previous Assessment and Plan * Sputum 09/10/17 shows NO AFB * Procalcitionin: 8.60 (09/06/17)-->5.80 (09/20)-->2.86 (10/04)--->4.91 (10/12) * Patient started on Cefepime 1 gram IV Q24H (active 10/12/17), Aztreonam 1 gram IV Q 24H (active since 10/13/17), and Zyvox 600mg PO BID (active since ) Status: Acute (7) HTN (hypertension) Assessment and Plan: * Lopressor 50mg PO bid * Lisinopril 5mg PO daily Status: Chronic (8) CKD (chronic kidney disease) on Dialysis Assessment and Plan: * Dr. Miranda (nephrology) consulted on the case * Hx of CKD-->Started on dialysis 08/15/17 * Kurtis catheter placed and removed 08/22 * s/p Right Chest Permcath 08/22 * Patient is on dialysis --; oliguric * Phoslo 1334mg GT TID * Epoetin 10,000 unit IV MWF Status: Chronic (9) Diabetes mellitus Assessment and Plan: * Accuchecks Q6H * HgbA1c 8.4 * Started peg feedings on 08/26/17 * Levemir 8 unit AM and HS * Novolin R 5 unit AC (10) HLD (hyperlipidemia) Assessment and Plan: * LFTS have normalized; will restart statin 09/20/17 * Crestor 10mg POqHS Status: Chronic (11) Anemia Assessment and Plan: * Heme-oncology (Dr. Giles bender) on board-->help appreciated * Likely iron deficiency anemia based on prior admissions * Ferritin 27.4, Iron 22, TIBC 322, % Saturation 7 * Ferric Sodium Gluconate 125mg IVPB daily (active 08/08-08/16) * Procrit 10,000 units -- * Monitor Hgb/Hct: stable Status: Chronic (12) History of DVT (deep vein thrombosis) Assessment and Plan: * Patient was previously on Eliquis for a prior history of DVT. * Repeat dopplers 08/09/17 are negative for DVT * Off Heparin Drip 08/17/17 * Started Eliquis 2.5mg PO BID for atrial flutter and history of DVT Status: Chronic (13) UTI Assessment and Plan: * Infectious disease (Dr. Lawrence) on board-->help appreciated * Exchange jaquez out and repeat urine cultures * Urine Culture 08/12/17 showed Gram Negative Rods: NO identification and NO sensitivities were performed * Meropenem 500mg IV Q 12hours (active since 08/14/17 through 08/18/17) to cover for UTI per ID * Repeat Urine Culture 08/18/17 shows NO growth * 08/25: reculture in light of leukocytosis * 08/27: pending urine studies * 08/30: Urine Culture 08/27/17 showed Yeast Species but no antifungal at that time secondary to recent history of Elevated LFTs * Urine Culture 09/13/17 showed Yeast Species: completed Diflucan on 10/06/17 * Urine culture (10/06/17): No growth * Urine culture (10/14/17): pending Status: Chronic (14) Confusion; Alzheimer's Dementia Assessment and Plan: * Per daughter, patient has been getting bouts of confusion over the past year but appears at baseline. Patient has not seen formal neurology as outpatient per daughter. Per , prior to event, noted Alzheimers' disease dx one year ago * CT head w/o contrast (08/10/17):acute os subacute lacune infarct is not excluded in the left basal ganglia inferiorly with definitive chronic lacune identified in the right basal ganglia superiorly. No acute or subacute lobar brain infarction is appreciable by standard CT criteria. Mild age-related neuro degenerative changes are identifed. No acute intracranial hemorrhage or mass is identified throughout * 08/26: Off Sedation-->patient moves all extremities randomly but does not follow directions * 08/27: off sedation-->patient is very calm, smiles at his * 08/28: off sedation-->patient is very calm * 10/14: DEPUTY K 9 for hypotension and lethargy; CT Head was repeated given patient is on Eliquis: * CT Head w/o contrast (10/14/17): no intracranial mass, hemorrhage, or evidence of acute infarct. 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 Old right external capsule ischemic change. Age related atrophy and chronic microvascular ischemic change Status: Chronic (15) Unstageable Sacral Ulcer, Left Ear Auricle Ulcer, Right Heal Ulcer Assessment and Plan: * Wound care on board * WOUND CARE [id number] patients sacral ulcer. Base softening up. Must continue medi-honey (nickel thick) then cover with a bordered dressing to be done daily. Patient must be repositioned frequently to optimize offloading of sacral region. Right heel is dark purple in color. Must continue to elevate both heels at all times to optimize heel offloading. Hemoglobin-9.6, Marshal of 14. Patient continues to be at risk for skin breakdown. will continue to follow. 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 * Sacral Ulcer (09/15/17): VRE and Reny Albicans * Sacral Ulcer (09/20/17): VRE and Reny Albicans * Sacral Ulcer (09/30/17): Enterobacter Aerogenes-->Sensitive Cefepime IV * Bone Scan performed 09/17/17 to check for Osteomyelitis at the Sacrum: negative for osteomyeliti * Daily wound care and dressing change by medicine team; healing appropriately Antibiotics * c/w Tigecycline (09/16/17: which will cover the VRE in Sacral Wound Culture and repeat on 09/20/17-->PER ID, d/c 10/15/17 * c/w Diflucan 200 mg PO 1x/day (09/13/17; Day 20): which will cover with Yeast in the Sputum, Urine, and Sacral Wound Culture--> PER ID, D/c 10/06/17; restarted on 10/14/17 * Procalcitionin: 8.60 (09/06/17)-->5.80 (09/20)-->2.86 (10/04)--->4.91 (10/12) * Patient started on Cefepime 1 gram IV Q24H (active 10/12/17), Aztreonam 1 gram IV Q 24H (active since 10/13/17), and Zyvox 600mg PO BID (active since ) Status: Acute (16) Elevated LFTs Assessment and Plan: * Have normalized * Currently off Diflucan since 10/06/17; restart 10/14/17 * Crestor 10mg POqHS (17). Hx Constipation * Monitor bowel movement (18). Hyponatremia-->resolved (). Prophylactic measure Assessment and Plan: * Pepcid 20mg PO daily * Start Eliquis 2.5mg PO BID * s/p peg placement 08/25 * s/p trachesostomy 08/22 * s/p Permcath placement 08/22 removal Kurtis catheter * s/p right posterior chest tube 08/19-->removed 08/24 * s/p Right Arm PICC 08/26 * Passy Weston Trach placed 09/15 * (Jovita Serrano): -->number provided to the nurse- ->consented for peg placement; discussed about LTAC 08/26 * Spoke with Dr. Pickard, MARIAJOSE regarding patient's hospitalization up until 08/26 Disposition: * Discussed with case management and director social welfare, working with patient's family and insurance to determine placement. Ongoing talks. Patient will also need dialysis placement. * Podiatry consult for heel eschars. * Pending chest xray and ABG for today * Possible switch out PICC r/o line sepsis tomorrow * Infectious disease adjusted medications on 10/14 (DEPUTY K 9). Patient started on Cefepime 1 gram IV Q24H (active 10/12/17), Aztreonam 1 gram IV Q 24H (active since 10/13/17), and Zyvox 600mg PO BID (active since 10/14/17) * Off beta ana maria since 10/14 due to hypotensive episodes
[2017-10-18] MEDS: Fluconazole IV 100mg/50 ml NS 50 ML IVPB SCH (18:33)
--- NOTE | 2017-10-18 21:30 | CP.PCM.PN ---
Subjective - Date & Time of Evaluation Date of Evaluation: 10/18/17 Time of Evaluation: 03:15 - Subjective Subjective: dictated Objective - Vital Signs/Intake and Output Vital Signs (last 24 hours): Temp Pulse Resp BP Pulse Ox 97.8 F 91 H 18 106/37 L 100 10/18/17 20:18 10/18/17 20:00 10/18/17 20:00 10/18/17 19:34 10/18/17 20:00 Intake and Output: 10/18/17 10/19/17 18:59 06:59 Intake Total 560 60 Output Total 0 0 Balance 560 60 - Medications Medications: Current Medications Apixaban (Eliquis) 2.5 mg PO BID [facility] Last Admin: 10/18/17 17:43 Dose: 2.5 mg Epoetin Chencho (Procrit) 10,000 unit IV [facility] Last Admin: 10/17/17 10:07 Dose: 10,000 unit Famotidine (Pepcid) 20 mg PO DAILY [facility] Last Admin: 10/18/17 09:57 Dose: 20 mg Heparin Sodium (Porcine) (Heparin) 3,700 units IVP MWF [facility] Last Admin: 10/17/17 12:07 Dose: 3,700 units Cefepime HCl 1 gm/ Dextrose 50 mls @ 100 mls/hr IVPB Q24H [facility] Last Admin: 10/18/17 08:37 Dose: 100 mls/hr Fluconazole (Diflucan Iv 100 Mg/50 Ml Ns) 50 mls @ 100 mls/hr IVPB Q24H [facility] Last Admin: 10/18/17 18:33 Dose: 100 mls/hr Linezolid (Zyvox 600mg/300ml D5w) 600 mg in 300 mls @ 200 mls/hr IVPB Q12 [facility] Last Admin: 10/18/17 21:01 Dose: 200 mls/hr Insulin Detemir (Levemir) 8 unit SC AMHS [facility] Last Admin: 10/18/17 21:22 Dose: 8 unit Insulin Human Regular (Novolin R) 5 unit SC AC [facility] Last Admin: 10/18/17 16:30 Dose: Not Given Insulin Human Regular (Novolin R) 0 unit SC ACHS [facility] PRN Reason: Protocol Last Admin: 10/18/17 21:23 Dose: Not Given Metronidazole (Flagyl) 500 mg GT Q8 [facility] Last Admin: 10/18/17 21:01 Dose: 500 mg Midodrine (Proamatine) 5 mg PO TID [facility] Last Admin: 10/18/17 17:41 Dose: 5 mg Rosuvastatin Calcium (Crestor) 10 mg PO HS [facility] Last Admin: 10/18/17 21:01 Dose: 10 mg Saccharomyces Boulardii (Florastor) 250 mg PO BID [facility] Last Admin: 10/18/17 17:41 Dose: 250 mg - Labs Labs: 10/18/17 06:43 10/18/17 06:36 PT 13.4 SECONDS (9.7-12.2) H 10/14/17 16:30 INR 1.2 10/14/17 16:30 APTT 28 SECONDS (21-34) 10/14/17 16:30
--- NOTE | 2017-10-19 00:33 | PN ---
SUBJECTIVE: The patient was seen in the ICU today. His was at the bedside. His eyes were open, sometimes he focuses and sometimes, it seems he is not there and he has trach vent the device that he has had lot of secretions. PHYSICAL EXAMINATION VITAL SIGNS: Show that the vital signs of T-max of 97.8, pulse was 91, blood pressure 106/37, respirations were 18. HEENT: Head is atraumatic. Trach site appears unremarkable. NECK: Supple. LUNGS: Clear. No rhonchi, no wheezing today. HEART: S1 and S2 regular. ABDOMEN: Soft and nontender. No guarding, no rigidity present. Trach site was unremarkable. EXTREMITIES: Have bilateral Venodyne boots. LABORATORY DATA: His white count is 23, hemoglobin 7.5, hematocrit 24, and platelet count is 431. White count has decreased. Potassium was 3.2 which is being supplemented. His creatinine is 2.9, BUN is 38. Sacral wound is deep and remains and at this time, he is on Diflucan, we will renew that and he is on Maxipime, Diflucan, on Zyvox and Flagyl. According to his cultures, there is no MRSA reported, so we will discontinue the Zyvox. Continue with Maxipime, Flagyl, and Diflucan and we will follow. Sputum culture came out normal diane. He does have infiltrate, but we will continue these 3 antibiotics. We will follow. Allan Lawrence MD
[2017-10-19 06:35] LABS: BASO # 0.1 K/uL (0.0-0.2); BASO % 0.3 % (0.0-2.0); EOS # 0.3 K/uL (0.0-0.7); EOS % 1.2 % (0.0-4.0); HEMATOCRIT 26.1 % (35.0-51.0); LYMPH # 1.8 K/uL (1.0-4.3); LYMPH % 7.9 % (20.0-40.0); MEAN CELL VOLUME 85.8 fL (80.0-94.0); MEAN CORPUSCULAR HEMOGLOBIN 26.5 pg (27.0-31.0); MEAN CORPUSCULAR HGB CONC 30.8 g/dL (33.0-37.0); MEAN PLATELET VOLUME 8.2 fL (7.2-11.7); MONO # 0.6 K/uL (0.0-0.8); MONO % 2.8 % (0.0-10.0); NRBC % 0.1 % (0.0-2.0); PLATELET COUNT 490 K/uL (130-400); RED CELL DISTRIBUTION WIDTH 28.2 % (11.5-14.5); WHITE BLOOD COUNT 22.6 K/uL (4.8-10.8)
[2017-10-19 06:57] LABS: ALB/GLOB RATIO 0.7 (1.0-2.1); BILIRUBIN,TOTAL 0.4 mg/dL (0.2-1.3); CALCIUM 6.8 mg/dl (8.6-10.4); MAGNESIUM 2.1 mg/dL (1.6-2.3); PHOSPHOROUS 5.5 mg/dL (2.5-4.5); POTASSIUM 2.9 mmol/L (3.6-5.2); TOTAL PROTEIN 6.2 g/dL (6.3-8.3)
[2017-10-19] MEDS: (Novolin R) Insulin Human Regular 100 units/ml vial SC SCH ×7 (08:00→21:16)
[2017-10-19 08:46] LABS: EOSINOPHIL 1 % (0-4); NEUTROPHIL 86 % (50-75); TOTAL CELLS COUNTED 100
[2017-10-19] MEDS ORDERED: Potassium Chloride 20 mEq/15 ml LIQ UD PO STA (08:47)
--- NOTE | 2017-10-19 08:58 | CP.PCM.PN ---
Subjective - Date & Time of Evaluation Date of Evaluation: 10/19/17 Time of Evaluation: 08:55 - Subjective Subjective: Medical Attending Note: Patient seen and examined. Patient is non verbal, on trach collar, on prevalon boots. No family at bedside. Discussed with ICU nurse, Alanis Smith, PICC line is working. Objective - Vital Signs/Intake and Output Vital Signs (last 24 hours): Temp Pulse Resp BP Pulse Ox 97.9 F 89 18 87/40 L 99 10/19/17 08:00 10/19/17 08:00 10/19/17 08:00 10/19/17 08:00 10/19/17 08:00 Intake and Output: 10/19/17 10/19/17 06:59 18:59 Intake Total 870 80 Output Total 0 0 Balance 870 80 - Medications Medications: Current Medications Acetylcysteine (Acetylcysteine 20%) 4 ml INH Q6H LUIS FERNANDO Albuterol/Ipratropium (Duoneb 3 Mg/0.5 Mg (3 Ml) Ud) 3 ml INH RQ6 LUIS FERNANDO Apixaban (Eliquis) 2.5 mg PO BID [facility] Last Admin: 10/18/17 17:43 Dose: 2.5 mg Epoetin Chencho (Procrit) 10,000 unit IV MWF [facility] Last Admin: 10/17/17 10:07 Dose: 10,000 unit Famotidine (Pepcid) 20 mg PO DAILY [facility] Last Admin: 10/18/17 09:57 Dose: 20 mg Heparin Sodium (Porcine) (Heparin) 3,700 units IVP MWF [facility] Last Admin: 10/17/17 12:07 Dose: 3,700 units Cefepime HCl 1 gm/ Dextrose 50 mls @ 100 mls/hr IVPB Q24H [facility] Last Admin: 10/19/17 08:04 Dose: 100 mls/hr Fluconazole (Diflucan Iv 100 Mg/50 Ml Ns) 50 mls @ 100 mls/hr IVPB Q24H [facility] Last Admin: 10/18/17 18:33 Dose: 100 mls/hr Insulin Detemir (Levemir) 8 unit SC AMHS [facility] Last Admin: 10/18/17 21:22 Dose: 8 unit Insulin Human Regular (Novolin R) 5 unit SC AC [facility] Last Admin: 10/19/17 08:00 Dose: 5 unit Insulin Human Regular (Novolin R) 0 unit SC ACHS [facility] PRN Reason: Protocol Last Admin: 10/19/17 08:00 Dose: 2 unit Metronidazole (Flagyl) 500 mg GT Q8 [facility] Last Admin: 10/19/17 05:04 Dose: 500 mg Midodrine (Proamatine) 5 mg PO TID [facility] Last Admin: 10/18/17 17:41 Dose: 5 mg Rosuvastatin Calcium (Crestor) 10 mg PO HS [facility] Last Admin: 10/18/17 21:01 Dose: 10 mg Saccharomyces Boulardii (Florastor) 250 mg PO BID [facility] Last Admin: 10/18/17 17:41 Dose: 250 mg - Labs Labs: 10/19/17 06:25 10/19/17 06:26 PT 13.4 SECONDS (9.7-12.2) H 10/14/17 16:30 INR 1.2 10/14/17 16:30 APTT 28 SECONDS (21-34) 10/14/17 16:30 - Constitutional Appears: Chronically Ill - Head Exam Head Exam: NORMAL INSPECTION - Eye Exam Eye Exam: EOMI - ENT Exam ENT Exam: Mucous Membranes Dry - Respiratory Exam Respiratory Exam: Decreased Breath Sounds, Rhonchi. absent: Respiratory Distress - Cardiovascular Exam Cardiovascular Exam: Tachycardia, +S1, +S2 - GI/Abdominal Exam GI & Abdominal Exam: Soft, Normal Bowel Sounds. absent: Distended, Firm, Guarding, Rigid, Tenderness, Rebound - Extremities Exam Extremities Exam: absent: Pedal Edema, Tenderness Additional comments: right heel eschar prevalon boots - Neurological Exam Neurological Exam: Awake Assessment and Plan - Assessment and Plan (Free Text) Assessment: Assessment/Plan (1) Acute Respiratory Failure ARDS Cardiac Arrest Pulmonary Edema Nonstemi Assessment and Plan: * Code Blue on 08/10: asystole, cardiopulmonary resuscitative measures initiated , requiring 3 epis, bicarbonate, ROSC achieved and intubated and brought to the ICU. 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 * Started on Midrodrine 5mg PO TID * Pulmonary: Dr Mena (Dr. Jeffers covering until 09/04/17)-->help appreciated * Cardiology: Dr. Cortés on board-->help appreciated * GI (Dr. Wills) on board-->help appreciated * S/P Tracheostomy 08/22 * S/P Peg tube placement 08/25 * s/p insertion of right posterior chest tube 08/19-->removed 08/24/17 * Passy Holland Trach placed 09/15 * There was consideration for possible thoracentesis of left side pleural effusion, evaluated by IR, there is no fluid to drain per Dr. Gross * Chest xray (08/26): right arm PICC is seen with the tip of distal subclavian vein. PICC may be used * Chest Xray (09/20/17): lines and tubes stable position, left-sided pacemaker, moderate venous congestion, left basilar opacity with associated small left pleural effusion, Cardiomegaly. Prominent aorta, degenrative changes in spine and shoulders * Medications: * Acetylcysteine 20% 4ml INH RQ6H * Duoneb 3ml INH RQ6H * Aspirin 81mg PO daily * Eliquis 2.5mg PO bid * off Lopressor 50mg PO bid * Pulmonary and cardiology following * Pending pulmonary to determine when patient is stable for decannulation (2) Abnormal Stress Test History of AICD History of Coronary Artery Disease Assessment and Plan: * Cardiology (Dr. Cortés) on board-->help appreciated * TSH: 1.16; T4: 1.53 * Echocardiogram (08/08/17): left ventricle systolic function is severely impaired. EF: 25-30%; global hypokinesis of left ventricle mild aortic regurgitation. Mitral regurgitation is moderate. Moderate-severe pulmonary hypertension * Plan was for cardiac catheterization; delayed due to acute renal failure; Attempted gentle hydration and mucomyst on 08/09 to optimize prior to cath * On 08/10, patient was in asystole, ACLS protocol, ROSC achieved, intubated and transfered to the ICU. Patient in acute pulmonary edema. * Patient hospitalized and require to and from ICU twice during this admission * Cardiac cath postponed at this time * Medications: * Acetylcysteine 20% 4ml INH RQ6H * Duoneb 3ml INH RQ6H * Aspirin 81mg PO daily * Eliquis 2.5mg PO bid * off Lopressor 50mg PO bid given hypotension * Crestor 10mg POqHS * Lisinopril 5mg PO daily (3) Atrial flutter Assessment and Plan: * Cardiology (Dr. Cortés) on board-->help appreciated * Refractory to Lopressor/Cardizem IVP * Aspirin 81mg Po daily * c/w Eliquis 2.5mg PO bid * off Lopressor 50mg PO bid Status: Resolved (4) Acute on Chronic Systolic CHF exacerbation Assessment and Plan: * Cardiology (Dr. Cortés) on board-->help appreciated * Transferred to the ICU on 08/10 following cardiac arrest and intubation. * Echocardiogram (08/08/17): left ventricular systolic function is severely impaired. EF: 25-30%; global hypokinesis of left ventricle mild aortic regurgitation. Mitral regurgitation is moderate. Moderate-severe pulmonary hypertension * Medications: * Aspirin 81mg PO daily * Lopressor 50mg PO bid-->held 10/14/17 * Lisinopril 5mg PO daily * Crestor 10mg POqHS Status: Stable (5) Leukocytosis Assessment and Plan: * Infectious Disease (Dr. Lawrence) on board-->help appreciated * Decreasing * Abnormal UA wit pyuria/hematuria * Heel eschar-->Podiatry on board * patient is on Cefepime 1 gram IV Q24H (active 10/12/17), Aztreonam 1 gram IV Q 24H (active since 10/13/17), and d/c Zyvox 600mg PO BID (active since 10/14/17 ), Diflucan 100mg IV Q 24 (active since 10/14/17) and Flagyl 500mg GT Q 8H * Etiology: pneumonia, and sacral decub; patient has alot of secretions; nursing and respiratory are suctioning * Pleural Fluid 08/19/17 did not show any growth * Blood cultures (09/13): no growth X5 days X2 * Blood cultures (09/07) during dialysis: no growth X5 days X2 * UA and urine culture (08/27): Yeast Species. * UA and urine culture (09/13): Yeast Species. * Urine culture (09/20): Yeast species * Urine culture (10/06/17): No growth * Urine culture (10/14/17): Yeast species * Sputum (10/14/17): Normal oral diane * MRSA (10/15/17): MRSA not detected * 09/07/17 Legionella Culture: negative * 09/07/17 Mycobacteria: negative * 09/07/17 Sputum: Enterocloace Bacter; yeast * Blood cultures (09/13): no growth X5 days X2 * Blood cultures (09/07) during dialysis: no growth X5 days X2 * Sacral Ulcer (09/14/17): VRE and Reny Albicans * Sacral Ulcer (09/15/17): VRE and Reny Albicans * Sacral Ulcer (09/20/17): VRE and Reny Albicans * Sacral Ulcer (09/30/17): Enterobacter Aerogenes-->Sensitive Cefepime IV * Blood cultures (10/13/17): no growth for 5 days X2 * Bone Scan performed 09/17/17 to check for Osteomyelitis at the Sacrum: negative for osteomyelitis * c/w Tigecycline (09/16/17): which will cover the VRE in Sacral Wound Culture 09/14/17 and repeat on 09/20/17--to finished 10/05/17 * c/w Diflucan 200 mg PO 1x/day (09/13/17-10/16/17: which will cover with Yeast in the Sputum, Urine, and Sacral Wound Culture-->stopped on 10/06/17; restarted 10/14/17- present * Procalcitionin: 8.60 (09/06/17)-->5.80 (09/20)-->2.86 (10/04)--->4.91 (10/12) * Per ID, Patient started on Cefepime 1 gram IV Q24H (active 10/12/17), Aztreonam 1 gram IV Q 24H (active since 10/13/17), and Zyvox 600mg PO BID ( active since 10/14/17) Status: Acute (6) Pneumonia Assessment and Plan: * Pulmonary (Dr. Mena) on board-->help appreciated * Infectious Disease (Dr. Lawrence)-->help appreciated * Rapid A strep, Influenza A and B studies, Urine Legionella, Mycoplasma studies = Negative * Florastor 250mg PO bid * 08/07/17: +Strep Pneumoniae in the urine * Meropenem 500mg IV Q 8 hours (08/14/17 through 08/18/17) and Zosyn 2.25 mg IV Q6H (08/13/17 through 08/18/17) * Cefepime 1 gm IV Q24H: started on 08/19/17 and was discontinued by ID Dr. Lawrence on 08/30/17: monitor vitals and labs * Restarted on 10/12/17 * s/p right posterior chest tube 08/19-08/24 * Sputum Culture 08/19/17 shows No growth * Pleural fluid 08/19/17: No growth * 09/07/17 Sputum: Enterocloace Bacter and Yeast Species: See Antibiotic treatment in previous Assessment and Plan * Sputum 09/10/17 shows NO AFB * Procalcitionin: 8.60 (09/06/17)-->5.80 (09/20)-->2.86 (10/04)--->4.91 (10/12) * Patient started on Cefepime 1 gram IV Q24H (active 10/12/17), Aztreonam 1 gram IV Q 24H (active since 10/13/17), and Zyvox 600mg PO BID (active since ) Status: Acute (7) HTN (hypertension) Assessment and Plan: * CARD PUNCHING MACHINE OPERATOR 10/14--:hypotension--->started on Midodrine 5mg PO TID * d/c Lopressor 50mg PO bid * d/cLisinopril 5mg PO daily Status: Chronic (8) CKD (chronic kidney disease) on Dialysis Assessment and Plan: * Dr. Miranda (nephrology) consulted on the case * Hx of CKD-->Started on dialysis 08/15/17 * Kurtis catheter placed and removed 08/22 * s/p Right Chest Permcath 08/22 * Patient is on dialysis -W-; oliguric * Phoslo 1334mg GT TID * Epoetin 10,000 unit IV MWF Status: Chronic (9) Diabetes mellitus Assessment and Plan: * Accuchecks Q6H * HgbA1c 8.4 * Started peg feedings on 08/26/17 * Levemir 8 unit AM and HS * Novolin R 5 unit AC (10) HLD (hyperlipidemia) Assessment and Plan: * LFTS have normalized; will restart statin 09/20/17 * Crestor 10mg POqHS Status: Chronic (11) Anemia Assessment and Plan: * Heme-oncology (Dr. Giles bender) on board-->help appreciated * Likely iron deficiency anemia based on prior admissions * Ferritin 27.4, Iron 22, TIBC 322, % Saturation 7 * Ferric Sodium Gluconate 125mg IVPB daily (active 08/08-08/16) * Procrit 10,000 units M-W- * Monitor Hgb/Hct: stable Status: Chronic (12) History of DVT (deep vein thrombosis) Assessment and Plan: * Patient was previously on Eliquis for a prior history of DVT. * Repeat dopplers 08/09/17 are negative for DVT * Off Heparin Drip 08/17/17 * Started Eliquis 2.5mg PO BID for atrial flutter and history of DVT Status: Chronic (13) UTI Assessment and Plan: * Infectious disease (Dr. Lawrence) on board-->help appreciated * Exchange jaquez out and repeat urine cultures * Urine Culture 08/12/17 showed Gram Negative Rods: NO identification and NO sensitivities were performed * Meropenem 500mg IV Q 12hours (active since 08/14/17 through 08/18/17) to cover for UTI per ID * Repeat Urine Culture 08/18/17 shows NO growth * 08/25: reculture in light of leukocytosis * 08/27: pending urine studies * 08/30: Urine Culture 08/27/17 showed Yeast Species but no antifungal at that time secondary to recent history of Elevated LFTs * Urine Culture 09/13/17 showed Yeast Species: completed Diflucan on 10/06/17 * Urine culture (10/06/17): No growth * Urine culture (10/14/17): pending Status: Chronic (14) Confusion; Alzheimer's Dementia Assessment and Plan: * Per daughter, patient has been getting bouts of confusion over the past year but appears at baseline. Patient has not seen formal neurology as outpatient per daughter. Per , prior to event, noted Alzheimers' disease dx one year ago * CT head w/o contrast (08/10/17):acute os subacute lacune infarct is not excluded in the left basal ganglia inferiorly with definitive chronic lacune identified in the right basal ganglia superiorly. No acute or subacute lobar brain infarction is appreciable by standard CT criteria. Mild age-related neuro degenerative changes are identifed. No acute intracranial hemorrhage or mass is identified throughout * 08/26: Off Sedation-->patient moves all extremities randomly but does not follow directions * 08/27: off sedation-->patient is very calm, smiles at his * 08/28: off sedation-->patient is very calm * 10/14: CARD PUNCHING MACHINE OPERATOR for hypotension and lethargy; CT Head was repeated given patient is on Eliquis: * CT Head w/o contrast (10/14/17): no intracranial mass, hemorrhage, or evidence of acute infarct. 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 Old right external capsule ischemic change. Age related atrophy and chronic microvascular ischemic change Status: Chronic (15) Unstageable Sacral Ulcer, Left Ear Auricle Ulcer, Right Heal Ulcer Assessment and Plan: * Wound care on board * WOUND CARE OOER-[id number] patients sacral ulcer. Base softening up. Must continue medi-honey (nickel thick) then cover with a bordered dressing to be done daily. Patient must be repositioned frequently to optimize offloading of sacral region. Right heel is dark purple in color. Must continue to elevate both heels at all times to optimize heel offloading. Hemoglobin-9.6, Marshal of 14. Patient continues to be at risk for skin breakdown. will continue to follow. 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 * Sacral Ulcer (09/15/17): VRE and Reny Albicans * Sacral Ulcer (09/20/17): VRE and Reny Albicans * Sacral Ulcer (09/30/17): Enterobacter Aerogenes-->Sensitive Cefepime IV * Bone Scan performed 09/17/17 to check for Osteomyelitis at the Sacrum: negative for osteomyeliti * Daily wound care and dressing change by medicine team; healing appropriately Antibiotics * c/w Tigecycline (09/16/17: which will cover the VRE in Sacral Wound Culture and repeat on 09/20/17-->PER ID, d/c 10/15/17 * c/w Diflucan 200 mg PO 1x/day (09/13/17; Day 20): which will cover with Yeast in the Sputum, Urine, and Sacral Wound Culture--> PER ID, D/c 10/06/17; restarted on 10/14/17 * Procalcitionin: 8.60 (09/06/17)-->5.80 (09/20)-->2.86 (10/04)--->4.91 (10/12) * Patient started on Cefepime 1 gram IV Q24H (active 10/12/17), Aztreonam 1 gram IV Q 24H (active since 10/13/17), and Zyvox 600mg PO BID (active since ) Status: Acute (16) Elevated LFTs Assessment and Plan: * Have normalized * Currently off Diflucan since 10/06/17; restart 10/14/17 * Crestor 10mg POqHS (17). Hx Constipation * Monitor bowel movement (18). Hyponatremia-->resolved (). Prophylactic measure Assessment and Plan: * Pepcid 20mg PO daily * Start Eliquis 2.5mg PO BID * s/p peg placement 08/25 * s/p trachesostomy 08/22 * s/p Permcath placement 08/22 removal Kurtis catheter * s/p right posterior chest tube 08/19-->removed 08/24 * s/p Right Arm PICC 08/26 * Passy Flex Trach placed 09/15 * (Jovita Serrano): -->number provided to the nurse- ->consented for peg placement; discussed about LTAC 08/26 * Spoke with Dr. Pickard, MARIAJOSE regarding patient's hospitalization up until 08/26 Disposition: * Discussed with case management and social services counselor, working with patient's family and insurance to determine placement. Ongoing talks. Patient will also need dialysis placement. * Infectious disease adjusted medications on 10/14 (CARD PUNCHING MACHINE OPERATOR). Patient started on Cefepime 1 gram IV Q24H (active 10/12/17), Aztreonam 1 gram IV Q 24H (active since 10/13/17), d/c Zyvox 600mg PO BID by ID, and on Flagyl 500mg GT Q8H * Off beta ana maria, ronaldo inhibitor since 10/14 due to hypotensive episodes
[2017-10-19] MEDS ORDERED: Acetylcysteine 20% Inhal Soln (4ml) INH SCH ×2 (09:00→12:00)
[2017-10-19] MEDS: Saccharomyces Boulardi 250 mg Cap PO SCH ×2 (09:31→18:04)
[2017-10-19] MEDS: Insulin Detemir 100 units/ml Vial (Levemir) SC SCH ×2 (09:35→21:15)
--- NOTE | 2017-10-19 10:51 | RAD ---
HISTORY: intubated COMPARISON: Portable chest 10/16/2017. FINDINGS: Tracheostomy tube is unchanged in position as well as right as tunneled central venous dialysis catheter and midline right PICC. Pacemaker again identified. LUNGS: There is improved aeration bilaterally. Trace residual patchy density is question in the left base with limited atelectasis remaining at the medial inferior right lung zone. Cardiac size is stable. No definite pulmonary vascular derangement identified. Minimal left pleural effusion is questioned. None is seen the right. No pneumothorax bilaterally. OSSEOUS STRUCTURES: No significant abnormalities. VISUALIZED UPPER ABDOMEN: Normal. OTHER FINDINGS: None. IMPRESSION: Improved examination with no pulmonary venous congestion appreciate this time. Diminishing left basilar atelectasis or infiltrate seen the lateral base with trace of pleural effusion not excluded. None is seen the right. Diminished medial basilar atelectasis right side.
--- NOTE | 2017-10-19 12:06 | CP.PCM.CON ---
History of Present Illness - History of Present Illness History of Present Illness: General Surgery Consult Note for Dr. Forbes Reason for Consult: Sacral decubitus ulcer 77 M with PMH of CAD with stent, HTN, HLD, DM, CKD, Anemia, s/p pacemaker with prolonged and complivcated hospital course. He was initially admitted on 08/06. Surgery was consulted in the past for tracheostomy and sacral ulcer. Surgery is being reconsulted for the sacral decubitus ulcer once again. Patient has had persistent elevated WBC (currently downtrending). As per ICU, they state he has no other source besides the ulcer. Patient is non-verbal responds to commands and tactile stimuli. Family is at bedside. ROS unobtainable. PMD: Dr Pickard PMH: CAD with stent, HTN, HLD, DM, CKD, Anemia, permanent pacemaker, prior DVT and chronic lower extremity edema Meds: As per EMR Allergy: NKDA PSH: abdominal hernia repair, pacemaker placement, cardiac cath with stent, tracheostomy FH: DM, vaginal CA, DE Social: denies tobacco/alcohol/illicit drug use Review of Systems - Review of Systems Systems not reviewed;Unavailable: Acuity of Condition Past Patient History - Infectious Disease Hx of Infectious Diseases: None - Past Medical History & Family History Past Medical History?: Yes - Past Social History Smoking Status: Never Smoked Chewing Tobacco Use: No Cigar Use: No Alcohol: None Drugs: Denies Home Situation {Lives}: With Family - CARDIAC Hx Congestive Heart Failure: Yes Hx Hypertension: Yes - PULMONARY Hx Asthma: Yes - RENAL Hx Chronic Kidney Disease: Yes (REANAL INSUFFICIENCY) Hx Kidney Stones: Yes - ENDOCRINE/METABOLIC Hx Diabetes Mellitus Type 2: Yes - MUSCULOSKELETAL/RHEUMATOLOGICAL Hx Arthritis: Yes - GENITOURINARY/GYNECOLOGICAL Hx Genitourinary Disorders: Yes Hx Prostate Problems: Yes (ELEVATED PSA) - PSYCHIATRIC Hx Anxiety: Yes Hx Depression: Yes Hx Substance Use: No - SURGICAL HISTORY Hx Surgeries: Yes Other/Comment: pacemaker on - ANESTHESIA Hx Anesthesia: Yes Hx Anesthesia Reactions: No Hx Malignant Hyperthermia: No Meds Allergies/Adverse Reactions: Allergies Allergy/AdvReac Type Severity Reaction Status Date / Time No Known Allergies Allergy Verified 08/06/17 13:20 - Medications Medications: Current Medications Acetylcysteine (Acetylcysteine 20%) 4 ml INH RQ4 LUIS FERNANDO Albuterol/Ipratropium (Duoneb 3 Mg/0.5 Mg (3 Ml) Ud) 3 ml INH RQ4 [facility] Apixaban (Eliquis) 2.5 mg PO BID [facility] Last Admin: 10/19/17 09:32 Dose: 2.5 mg Aspirin (Aspirin Chewable) 81 mg PO DAILY [facility] Last Admin: 10/19/17 09:34 Dose: 81 mg Epoetin Chencho (Procrit) 10,000 unit IV [facility] Last Admin: 10/17/17 10:07 Dose: 10,000 unit Famotidine (Pepcid) 20 mg PO DAILY [facility] Last Admin: 10/19/17 09:31 Dose: 20 mg Heparin Sodium (Porcine) (Heparin) 3,700 units IVP [facility] Last Admin: 10/17/17 12:07 Dose: 3,700 units Cefepime HCl 1 gm/ Dextrose 50 mls @ 100 mls/hr IVPB Q24H [facility] Last Admin: 10/19/17 08:04 Dose: 100 mls/hr Fluconazole (Diflucan Iv 100 Mg/50 Ml Ns) 50 mls @ 100 mls/hr IVPB Q24H [facility] Last Admin: 10/18/17 18:33 Dose: 100 mls/hr Insulin Detemir (Levemir) 8 unit SC AMHS [facility] Last Admin: 10/19/17 09:35 Dose: 8 unit Insulin Human Regular (Novolin R) 5 unit SC AC [facility] Last Admin: 10/19/17 08:00 Dose: 5 unit Insulin Human Regular (Novolin R) 0 unit SC ACHS [facility] PRN Reason: Protocol Last Admin: 10/19/17 08:00 Dose: 2 unit Metronidazole (Flagyl) 500 mg GT Q8 [facility] Last Admin: 10/19/17 05:04 Dose: 500 mg Midodrine (Proamatine) 5 mg PO TID [facility] Last Admin: 10/19/17 09:31 Dose: 5 mg Rosuvastatin Calcium (Crestor) 10 mg PO [facility] Last Admin: 10/18/17 21:01 Dose: 10 mg Saccharomyces Boulardii (Florastor) 250 mg PO BID [facility] Last Admin: 10/19/17 09:31 Dose: 250 mg Physical Exam - Constitutional Appears: Chronically Ill - Head Exam Head Exam: ATRAUMATIC, NORMOCEPHALIC - Eye Exam Eye Exam: Normal appearance - ENT Exam ENT Exam: Mucous Membranes Moist - Respiratory Exam Respiratory Exam: NORMAL BREATHING PATTERN - Cardiovascular Exam Cardiovascular Exam: REGULAR RHYTHM - GI/Abdominal Exam GI & Abdominal Exam: Distended, Normal Bowel Sounds, Soft. absent: Firm, Guarding, Rebound, Rigid, Tenderness Additional comments: PEG tube in place and functioning properly - Extremities Exam Extremities exam: Negative for: tenderness Additional comments: right heel eschar - patient currently has prevalon boots on - Back Exam Additional comments: large sacral decubitus ulcer - ~12 cm x 10 cm - Neurological Exam Neurological exam: Altered - Psychiatric Exam Psychiatric exam: Flat Affect - Skin Skin Exam: Dry, Warm Results - Vital Signs Recent Vital Signs: Last Vital Signs Temp 97.9 F 10/19/17 08:00 Pulse 89 10/19/17 11:00 Resp 19 10/19/17 11:00 BP 104/44 L 10/19/17 11:00 Pulse Ox 100 10/19/17 11:00 - Labs Result Diagrams: 10/19/17 06:25 10/19/17 06:26 Labs: Laboratory Results - last 24 hr 10/18/17 10/18/17 10/19/17 16:27 21:07 06:25 WBC 22.6 H RBC 3.04 L Hgb 8.0 L Hct 26.1 L MCV 85.8 MCH 26.5 L MCHC 30.8 L RDW 28.2 H Plt Count 490 H MPV 8.2 Neut % (Auto) 87.8 H Lymph % (Auto) 7.9 L Lea % (Auto) 2.8 Eos % (Auto) 1.2 Baso % (Auto) 0.3 Neut # 19.8 H Lymph # 1.8 Lea # 0.6 Eos # 0.3 Baso # 0.1 Neutrophils % (Manual) 86 H Band Neutrophils % 3 H Lymphocytes % (Manual) 7 L Monocytes % (Manual) 3 Eosinophils % (Manual) 1 Platelet Estimate Increased H Polychromasia Slight Hypochromasia (manual) Moderate Poikilocytosis (manual Slight Anisocytosis (manual) Slight Target Cells Slight Ovalocytes Slight Sodium Potassium Chloride Carbon Dioxide Anion Gap BUN Creatinine Est GFR ( Amer) Est GFR (Non-Af Amer) POC Glucose (mg/dL) 109 141 H Random Glucose Calcium Phosphorus Magnesium Total Bilirubin AST ALT Alkaline Phosphatase Total Protein Albumin Globulin Albumin/Globulin Ratio 1110/19/17 10/19/17 06:26 07:23 11:31 WBC RBC Hgb Hct MCV MCH MCHC RDW Plt Count MPV Neut % (Auto) Lymph % (Auto) Lea % (Auto) Eos % (Auto) Baso % (Auto) Neut # Lymph # Lea # Eos # Baso # Neutrophils % (Manual) Band Neutrophils % Lymphocytes % (Manual) Monocytes % (Manual) Eosinophils % (Manual) Platelet Estimate Polychromasia Hypochromasia (manual) Poikilocytosis (manual Anisocytosis (manual) Target Cells Ovalocytes Sodium 130 L Potassium 2.9 L Chloride 93 L Carbon Dioxide 23 Anion Gap 16 BUN 50 H Creatinine 3.9 H Est GFR ( Amer) 18 Est GFR (Non-Af Amer) 15 POC Glucose (mg/dL) 195 H 209 H Random Glucose 187 H Calcium 6.8 L Phosphorus 5.5 H Magnesium 2.1 Total Bilirubin 0.4 AST 54 ALT 65 Alkaline Phosphatase 114 Total Protein 6.2 L Albumin 2.5 L Globulin 3.7 Albumin/Globulin Ratio 0.7 L Assessment & Plan - Assessment and Plan (Free Text) Plan: 77 M with Sacral decubitus ulcer -No surgical intervention at this time -Dressing changes daily, can apply santyl -Wound care consult -Discussed with Dr. Andrei Moe PGY1
--- NOTE | 2017-10-19 13:18 | CP.CCUPN ---
<Cristiano Stanford - Last Filed: 10/19/17 13:50> CCU Subjective - Physician Review Subjective (Free Text): PGY1 ICU progress note for Dr. Mena Patient seen and examined at bedside this morning. Patient is resting comfortably, in no acute distress. Patient non-verbal, trach collar in place. ROS unattainable. CCU Objective - Vital Signs / Intake & Output Vital Signs (Last 4 hours): Vital Signs Pulse Resp BP Pulse Ox 10/19/17 11:00 89 19 104/44 L 100 10/19/17 10:00 93 H 18 93/45 L 100 Intake and Output (Last 8hrs): Intake & Output 10/18/17 10/19/17 10/19/17 22:59 06:59 14:59 Intake Total 860 330 160 Output Total 0 0 0 Balance 860 330 160 Intake: Intake, IV Amount 300 Right Proximal Port 300 Tube Feeding 240 270 160 Other 320 60 Output: Urine 0 0 0 Urine, Voided 0 0 0 Other: # Bowel Movements 1 0 0 - Physical Exam Head: Positive for: Atraumatic Pupils: Positive for: Sluggish Extroacular Muscles: Positive for: EOMI Conjunctiva: Positive for: Normal Mouth: Positive for: Moist Mucous Membranes Pharnyx: Positive for: Normal Neck: Positive for: Other (trach collar in place) Respiratory/Chest: Positive for: Clear to Auscultation, Good Air Exchange ( Anteriorly ), Other (Tracheostomy ). Negative for: Respiratory Distress, Accessory Muscle Use Cardiovascular: Positive for: Regular Rate and Rhythm, Normal S1, S2 Abdomen: Positive for: Other (decreased bowel sounds). Negative for: Tenderness , Peritoneal Signs Upper Extremity: Positive for: NORMAL PULSES, Other (patient moving upper extremities). Negative for: Edema Lower Extremity: Negative for: Edema, CALF TENDERNESS, Swelling Neurological: Positive for: Other (alert and awake but does not respond to voice commands). Negative for: Speech Normal Skin: Positive for: Warm, Dry. Negative for: Diaphoretic Psychiatric: Positive for: Alert, Other (non-verbal, trach). Negative for: Oriented x 3 - Medications Active Medications: Active Medications Generic Name Dose Route Start Last Admin Trade Name Freq PRN Reason Stop Dose Admin Acetylcysteine 4 ml 10/19/17 12:00 Acetylcysteine 20% INH RQ4 LUIS FERNANDO Albuterol/Ipratropium 3 ml 10/19/17 12:00 Duoneb 3 Mg/0.5 Mg (3 Ml) Ud INH RQ4 [facility] Apixaban 2.5 mg 08/27/17 12:00 10/19/17 09:32 Eliquis PO 2.5 mg BID LUIS FERNANDO Administration Aspirin 81 mg 10/19/17 10:00 10/19/17 09:34 Aspirin Chewable PO 81 mg DAILY LUIS FERNANDO Administration Epoetin Chencho 10,000 unit 10/05/17 11:45 10/17/17 10:07 Procrit IV 10,000 unit [facility] [place] Administration Famotidine 20 mg 08/09/17 10:00 10/19/17 09:31 Pepcid PO 20 mg DAILY LUIS FERNANDO Administration Heparin Sodium (Porcine) 3,700 units 10/17/17 12:00 10/17/17 12:07 Heparin IVP 3,700 units [facility] [place] Administration Cefepime HCl 1 gm/ Dextrose 50 mls @ 100 mls/hr 10/12/17 08:30 10/19/17 08:04 IVPB 100 mls/hr Q24H LUIS FERNANDO Administration Fluconazole 50 mls @ 100 mls/hr 10/14/17 19:00 10/18/17 18:33 Diflucan Iv 100 Mg/50 Ml Ns IVPB 100 mls/hr Q24H LUIS FERNANDO Administration Insulin Detemir 8 unit 10/12/17 22:00 10/19/17 09:35 Levemir SC 8 unit [facility]HS LUIS FERNANDO Administration Insulin Human Regular 5 unit 10/12/17 16:30 10/19/17 08:00 Novolin R SC 5 unit AC LUIS FERNANDO Administration Insulin Human Regular 0 unit 10/14/17 07:30 10/19/17 08:00 Novolin R SC 2 unit ACHS LUIS FERNANDO Administration Protocol Metronidazole 500 mg 10/16/17 14:00 10/19/17 05:04 Flagyl GT 500 mg Q8 LUIS FERNANDO Administration Midodrine 5 mg 10/17/17 14:00 10/19/17 09:31 Proamatine PO 5 mg TID LUIS FERNANDO Administration Rosuvastatin Calcium 10 mg 10/02/17 22:00 10/18/17 21:01 Crestor PO 10 mg HS LUIS FERNANDO Administration Saccharomyces Boulardii 250 mg 09/26/17 18:00 10/19/17 09:31 Florastor PO 250 mg BID LUIS FERNANDO Administration - Patient Studies Lab Studies: Microbiology Studies 10/13/17 12:30 Blood Culture - Final Blood NO GROWTH AFTER 5 DAYS Gram Stain - Final TEST NOT PERFORMED 10/13/17 13:57 Blood Culture - Final Blood NO GROWTH AFTER 5 DAYS Gram Stain - Final TEST NOT PERFORMED Lab Studies 10/19/17 10/19/17 10/19/17 Range/Units 11:31 07:23 06:26 WBC (4.8-10.8) K/uL RBC (4.40-5.90) Mil/uL Hgb (12.0-18.0) g/dL Hct (35.0-51.0) % MCV (80.0-94.0) fL MCH (27.0-31.0) pg MCHC (33.0-37.0) g/dL RDW (11.5-14.5) % Plt Count (130-400) K/uL MPV (7.2-11.7) fL Neut % (Auto) (50.0-75.0) % Lymph % (Auto) (20.0-40.0) % [place] % (Auto) (0.0-10.0) % Eos % (Auto) (0.0-4.0) % Baso % (Auto) (0.0-2.0) % Neut # (1.8-7.0) K/uL Lymph # (1.0-4.3) K/uL [place] # (0.0-0.8) K/uL Eos # (0.0-0.7) K/uL Baso # (0.0-0.2) K/uL Neutrophils % (Manual) (50-75) % Band Neutrophils % (0-2) % Lymphocytes % (Manual) (20-40) % Monocytes % (Manual) (0-10) % Eosinophils % (Manual) (0-4) % Platelet Estimate (NORMAL) Polychromasia Hypochromasia (manual) Poikilocytosis (manual Anisocytosis (manual) Target Cells Ovalocytes Sodium 130 L (132-148) mmol/L Potassium 2.9 L (3.6-5.2) mmol/L Chloride 93 L (98-107) mmol/L Carbon Dioxide 23 (22-30) mmol/L Anion Gap 16 (10-20) BUN 50 H (9-20) mg/dL Creatinine 3.9 H (0.8-1.5) mg/dL Est GFR ( Amer) 18 Est GFR (Non-Af Amer) 15 POC Glucose (mg/dL) 209 H 195 H (65-110) mg/dL Random Glucose 187 H (75-110) mg/dL Calcium 6.8 L (8.6-10.4) mg/dl Phosphorus 5.5 H (2.5-4.5) mg/dL Magnesium 2.1 (1.6-2.3) mg/dL Total Bilirubin 0.4 (0.2-1.3) mg/dL AST 54 (17-59) U/L ALT 65 (21-72) U/L Alkaline Phosphatase 114 (38-126) U/L Total Protein 6.2 L (6.3-8.3) g/dL Albumin 2.5 L (3.5-5.0) g/dL Globulin 3.7 (2.2-3.9) gm/dL Albumin/Globulin Ratio 0.7 L (1.0-2.1) 10/19/17 10/18/17 10/18/17 Range/Units 06:25 21:07 16:27 WBC 22.6 H (4.8-10.8) K/uL RBC 3.04 L (4.40-5.90) Mil/uL Hgb 8.0 L (12.0-18.0) g/dL Hct 26.1 L (35.0-51.0) % MCV 85.8 (80.0-94.0) fL MCH 26.5 L (27.0-31.0) pg MCHC 30.8 L (33.0-37.0) g/dL RDW 28.2 H (11.5-14.5) % Plt Count 490 H (130-400) K/uL MPV 8.2 (7.2-11.7) fL Neut % (Auto) 87.8 H (50.0-75.0) % Lymph % (Auto) 7.9 L (20.0-40.0) % [place] % (Auto) 2.8 (0.0-10.0) % Eos % (Auto) 1.2 (0.0-4.0) % Baso % (Auto) 0.3 (0.0-2.0) % Neut # 19.8 H (1.8-7.0) K/uL Lymph # 1.8 (1.0-4.3) K/uL [place] # 0.6 (0.0-0.8) K/uL Eos # 0.3 (0.0-0.7) K/uL Baso # 0.1 (0.0-0.2) K/uL Neutrophils % (Manual) 86 H (50-75) % Band Neutrophils % 3 H (0-2) % Lymphocytes % (Manual) 7 L (20-40) % Monocytes % (Manual) 3 (0-10) % Eosinophils % (Manual) 1 (0-4) % Platelet Estimate Increased H (NORMAL) Polychromasia Slight Hypochromasia (manual) Moderate Poikilocytosis (manual Slight Anisocytosis (manual) Slight Target Cells Slight Ovalocytes Slight Sodium (132-148) mmol/L Potassium (3.6-5.2) mmol/L Chloride (98-107) mmol/L Carbon Dioxide (22-30) mmol/L Anion Gap (10-20) BUN (9-20) mg/dL Creatinine (0.8-1.5) mg/dL Est GFR ( Amer) Est GFR (Non-Af Amer) POC Glucose (mg/dL) 141 H 109 (65-110) mg/dL Random Glucose (75-110) mg/dL Calcium (8.6-10.4) mg/dl Phosphorus (2.5-4.5) mg/dL Magnesium (1.6-2.3) mg/dL Total Bilirubin (0.2-1.3) mg/dL AST (17-59) U/L ALT (21-72) U/L Alkaline Phosphatase (38-126) U/L Total Protein (6.3-8.3) g/dL Albumin (3.5-5.0) g/dL Globulin (2.2-3.9) gm/dL Albumin/Globulin Ratio (1.0-2.1) Laboratory Results - last 24 hr 10/18/17 10/18/17 10/19/17 16:27 21:07 06:25 WBC 22.6 H RBC 3.04 L Hgb 8.0 L Hct 26.1 L MCV 85.8 MCH 26.5 L MCHC 30.8 L RDW 28.2 H Plt Count 490 H MPV 8.2 Neut % (Auto) 87.8 H Lymph % (Auto) 7.9 L [place] % (Auto) 2.8 Eos % (Auto) 1.2 Baso % (Auto) 0.3 Neut # 19.8 H Lymph # 1.8 [place] # 0.6 Eos # 0.3 Baso # 0.1 Neutrophils % (Manual) 86 H Band Neutrophils % 3 H Lymphocytes % (Manual) 7 L Monocytes % (Manual) 3 Eosinophils % (Manual) 1 Platelet Estimate Increased H Polychromasia Slight Hypochromasia (manual) Moderate Poikilocytosis (manual Slight Anisocytosis (manual) Slight Target Cells Slight Ovalocytes Slight Sodium Potassium Chloride Carbon Dioxide Anion Gap BUN Creatinine Est GFR ( Amer) Est GFR (Non-Af Amer) POC Glucose (mg/dL) 109 141 H Random Glucose Calcium Phosphorus Magnesium Total Bilirubin AST ALT Alkaline Phosphatase Total Protein Albumin Globulin Albumin/Globulin Ratio 10/19/17 10/19/17 10/19/17 06:26 07:23 11:31 WBC RBC Hgb Hct MCV MCH MCHC RDW Plt Count MPV Neut % (Auto) Lymph % (Auto) [place] % (Auto) Eos % (Auto) Baso % (Auto) Neut # Lymph # [place] # Eos # Baso # Neutrophils % (Manual) Band Neutrophils % Lymphocytes % (Manual) Monocytes % (Manual) Eosinophils % (Manual) Platelet Estimate Polychromasia Hypochromasia (manual) Poikilocytosis (manual Anisocytosis (manual) Target Cells Ovalocytes Sodium 130 L Potassium 2.9 L Chloride 93 L Carbon Dioxide 23 Anion Gap 16 BUN 50 H Creatinine 3.9 H Est GFR ( Amer) 18 Est GFR (Non-Af Amer) 15 POC Glucose (mg/dL) 195 H 209 H Random Glucose 187 H Calcium 6.8 L Phosphorus 5.5 H Magnesium 2.1 Total Bilirubin 0.4 AST 54 ALT 65 Alkaline Phosphatase 114 Total Protein 6.2 L Albumin 2.5 L Globulin 3.7 Albumin/Globulin Ratio 0.7 L Fingerstick Blood Sugar Results: 141 Review of Systems - Review of Systems Systems not reviewed;Unavailable: Altered Mental Status (non-verbal) Critical Care Progress Note - Nutrition Nutrition: Nutrition Category Date Time Status NPO Diet [DIET] Diets 08/21/17 Dinner Active Assessment/Plan - Assessment and Plan (Free Text) Assessment: 77 year old male with extensive PMH and hospital stay, recently transferred to ICU for hypotension and altered mental status Plan: Neuro: Alert, non-responsive Pulm: Management: * Tracheostomy CV: Hypotension s/p Cardica arrest (08/10/17), Hx of CAD with prior stent placement, HTN, HLD, 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 Miranda, help appreciated HD ([facility]) via perma cath Procrit 10,000 unit IV MWF Midodrine 5 mg PO TID Endo: DM type 2 ISS- low dose protocol Levemir 8 units [facility] Novolog 5 units AC Heme: Dr. Crawford consulted, help appreciated Hgb 8.0, stable from yesterday 7.5 f/u heme recs - f/u retic count, B12, Folate --> will replete B12 with IM injection if low. discuss with Nephro of possibility of increasing procrit with HD - Ferretin 1380 (10/11) --> anemia likely due to chronic disease ID: WBC - improved to 23.0 from 31.4 Right plantar pressure ulcer - Dr. Lundberg consulted * offloading heel boots ID, Dr. Zimmer Help appreciated Medications: * Aztreonam 1g IVBP q24 * Cefepimne 1g PO q24 * Zyvox 600mg IVPB q12 * Flagyl 500mg GT q8 * Fluconazone 100mg IVPB q24 Urine culture 10/14 - yeast Trach asp 10/14 - normal oral diane Blood culture 10/13 - no growth Skin: Sacral Decub - unstageable Dr. Forbes (General Surgery) consulted, help appreciated * no plan for surgical intervention at this time. Electrolytes: K+ 2.9 - partially repleted with 40mEq oral - rest of repletion will be completed during dialysis today Prophylaxis DVT: SCDs and Eliquis 2.5mg PO BID GI: pepcid 20 mg PO daily, florastor 250mg PO BID Case discussed with Dr. Rajesh Quinonez Hien PGY1 <Elkin Mena S - Last Filed: 10/19/17 17:11> CCU Objective - Vital Signs / Intake & Output Vital Signs (Last 4 hours): Vital Signs Temp Pulse Pulse Resp BP BP Pulse Ox 10/19/17 17:00 111 H 22 94/48 L 94/46 L 100 10/19/17 16:45 102/36 L 10/19/17 16:30 85/43 L 10/19/17 16:15 81/30 L 10/19/17 16:00 98 F 111 H 20 112/55 L 97/29 L 99 10/19/17 15:45 112/55 L 10/19/17 15:30 98/38 L 10/19/17 15:15 92/38 L 10/19/17 15:00 120 H 21 91/48 L 91/46 L 100 10/19/17 14:45 106/41 L 10/19/17 14:30 98 F 84 27 H 109/37 L 100 10/19/17 14:25 98 F 84 27 H 91/37 L 10/19/17 14:00 88 20 91/40 L 100 Intake and Output (Last 8hrs): Intake & Output 10/19/17 10/19/17 10/19/17 06:59 14:59 22:59 Intake Total 330 330 320 Output Total 0 0 Balance 330 330 320 Weight 165 lb Intake: Intake, IV Amount 50 Right Proximal Port 50 Tube Feeding 270 280 120 Other 60 200 Output: Urine 0 0 Urine, Voided 0 0 Other: # Bowel Movements 0 0 - Medications Active Medications: Active Medications Generic Name Dose Route Start Last Admin Trade Name Freq PRN Reason Stop Dose Admin Acetylcysteine 4 ml 10/19/17 12:00 Acetylcysteine 20% INH RQ4 LUIS FERNANDO Albuterol/Ipratropium 3 ml 10/19/17 12:00 Duoneb 3 Mg/0.5 Mg (3 Ml) Ud INH RQ4 LUIS FERNANDO Apixaban 2.5 mg 08/27/17 12:00 10/19/17 09:32 Eliquis PO 2.5 mg BID LUIS FERNANDO Administration Aspirin 81 mg 10/19/17 10:00 10/19/17 09:34 Aspirin Chewable PO 81 mg DAILY LUIS FERNANDO Administration Epoetin Chencho 10,000 unit 10/05/17 11:45 10/19/17 16:42 Procrit IV 10,000 unit [facility] [place] Administration Famotidine 20 mg 08/09/17 10:00 10/19/17 09:31 Pepcid PO 20 mg DAILY LUIS FERNANDO Administration Heparin Sodium (Porcine) 3,700 units 10/17/17 12:00 10/17/17 12:07 Heparin IVP 3,700 units [facility] [place] Administration Cefepime HCl 1 gm/ Dextrose 50 mls @ 100 mls/hr 10/12/17 08:30 10/19/17 08:04 IVPB 100 mls/hr Q24H LUIS FERNANDO Administration Fluconazole 50 mls @ 100 mls/hr 10/14/17 19:00 10/18/17 18:33 Diflucan Iv 100 Mg/50 Ml Ns IVPB 100 mls/hr Q24H LUIS FERNANDO Administration Insulin Detemir 8 unit 10/12/17 22:00 10/19/17 09:35 Levemir SC 8 unit [facility] LUIS FERNANDO Administration Insulin Human Regular 5 unit 10/12/17 16:30 10/19/17 16:55 Novolin R SC 5 unit AC LUIS FERNANDO Administration Insulin Human Regular 0 unit 10/14/17 07:30 10/19/17 16:56 Novolin R SC 2 unit ACHS LUIS FERNANDO Administration Protocol Metronidazole 500 mg 10/16/17 14:00 10/19/17 15:00 Flagyl GT 500 mg Q8 LUIS FERNANDO Administration Midodrine 5 mg 10/17/17 14:00 10/19/17 14:00 Proamatine PO 5 mg TID LUIS FERNANDO Administration Rosuvastatin Calcium 10 mg 10/02/17 22:00 10/18/17 21:01 Crestor PO 10 mg HS LUIS FERNANDO Administration Saccharomyces Boulardii 250 mg 09/26/17 18:00 10/19/17 09:31 Florastor PO 250 mg BID LUIS FERNANDO Administration - Patient Studies Lab Studies: Microbiology Studies 10/13/17 12:30 Blood Culture - Final Blood NO GROWTH AFTER 5 DAYS Gram Stain - Final TEST NOT PERFORMED 10/13/17 13:57 Blood Culture - Final Blood NO GROWTH AFTER 5 DAYS Gram Stain - Final TEST NOT PERFORMED Lab Studies 10/19/17 10/19/17 10/19/17 Range/Units 16:07 11:31 07:23 WBC (4.8-10.8) K/uL RBC (4.40-5.90) Mil/uL Hgb (12.0-18.0) g/dL Hct (35.0-51.0) % MCV (80.0-94.0) fL MCH (27.0-31.0) pg MCHC (33.0-37.0) g/dL RDW (11.5-14.5) % Plt Count (130-400) K/uL MPV (7.2-11.7) fL Neut % (Auto) (50.0-75.0) % Lymph % (Auto) (20.0-40.0) % [place] % (Auto) (0.0-10.0) % Eos % (Auto) (0.0-4.0) % Baso % (Auto) (0.0-2.0) % Neut # (1.8-7.0) K/uL Lymph # (1.0-4.3) K/uL [place] # (0.0-0.8) K/uL Eos # (0.0-0.7) K/uL Baso # (0.0-0.2) K/uL Neutrophils % (Manual) (50-75) % Band Neutrophils % (0-2) % Lymphocytes % (Manual) (20-40) % Monocytes % (Manual) (0-10) % Eosinophils % (Manual) (0-4) % Platelet Estimate (NORMAL) Polychromasia Hypochromasia (manual) Poikilocytosis (manual Anisocytosis (manual) Target Cells Ovalocytes Sodium (132-148) mmol/L Potassium (3.6-5.2) mmol/L Chloride (98-107) mmol/L Carbon Dioxide (22-30) mmol/L Anion Gap (10-20) BUN (9-20) mg/dL Creatinine (0.8-1.5) mg/dL Est GFR ( Amer) Est GFR (Non-Af Amer) POC Glucose (mg/dL) 154 H 209 H 195 H (65-110) mg/dL Random Glucose (75-110) mg/dL Calcium (8.6-10.4) mg/dl Phosphorus (2.5-4.5) mg/dL Magnesium (1.6-2.3) mg/dL Total Bilirubin (0.2-1.3) mg/dL AST (17-59) U/L ALT (21-72) U/L Alkaline Phosphatase (38-126) U/L Total Protein (6.3-8.3) g/dL Albumin (3.5-5.0) g/dL Globulin (2.2-3.9) gm/dL Albumin/Globulin Ratio (1.0-2.1) 10/19/17 10/19/17 10/18/17 Range/Units 06:26 06:25 21:07 WBC 22.6 H (4.8-10.8) K/uL RBC 3.04 L (4.40-5.90) Mil/uL Hgb 8.0 L (12.0-18.0) g/dL Hct 26.1 L (35.0-51.0) % MCV 85.8 (80.0-94.0) fL MCH 26.5 L (27.0-31.0) pg MCHC 30.8 L (33.0-37.0) g/dL RDW 28.2 H (11.5-14.5) % Plt Count 490 H (130-400) K/uL MPV 8.2 (7.2-11.7) fL Neut % (Auto) 87.8 H (50.0-75.0) % Lymph % (Auto) 7.9 L (20.0-40.0) % [place] % (Auto) 2.8 (0.0-10.0) % Eos % (Auto) 1.2 (0.0-4.0) % Baso % (Auto) 0.3 (0.0-2.0) % Neut # 19.8 H (1.8-7.0) K/uL Lymph # 1.8 (1.0-4.3) K/uL [place] # 0.6 (0.0-0.8) K/uL Eos # 0.3 (0.0-0.7) K/uL Baso # 0.1 (0.0-0.2) K/uL Neutrophils % (Manual) 86 H (50-75) % Band Neutrophils % 3 H (0-2) % Lymphocytes % (Manual) 7 L (20-40) % Monocytes % (Manual) 3 (0-10) % Eosinophils % (Manual) 1 (0-4) % Platelet Estimate Increased H (NORMAL) Polychromasia Slight Hypochromasia (manual) Moderate Poikilocytosis (manual Slight Anisocytosis (manual) Slight Target Cells Slight Ovalocytes Slight Sodium 130 L (132-148) mmol/L Potassium 2.9 L (3.6-5.2) mmol/L Chloride 93 L (98-107) mmol/L Carbon Dioxide 23 (22-30) mmol/L Anion Gap 16 (10-20) BUN 50 H (9-20) mg/dL Creatinine 3.9 H (0.8-1.5) mg/dL Est GFR ( Amer) 18 Est GFR (Non-Af Amer) 15 POC Glucose (mg/dL) 141 H (65-110) mg/dL Random Glucose 187 H (75-110) mg/dL Calcium 6.8 L (8.6-10.4) mg/dl Phosphorus 5.5 H (2.5-4.5) mg/dL Magnesium 2.1 (1.6-2.3) mg/dL Total Bilirubin 0.4 (0.2-1.3) mg/dL AST 54 (17-59) U/L ALT 65 (21-72) U/L Alkaline Phosphatase 114 (38-126) U/L Total Protein 6.2 L (6.3-8.3) g/dL Albumin 2.5 L (3.5-5.0) g/dL Globulin 3.7 (2.2-3.9) gm/dL Albumin/Globulin Ratio 0.7 L (1.0-2.1) Laboratory Results - last 24 hr 10/18/17 10/19/17 10/19/17 21:07 06:25 06:26 WBC 22.6 H RBC 3.04 L Hgb 8.0 L Hct 26.1 L MCV 85.8 MCH 26.5 L MCHC 30.8 L RDW 28.2 H Plt Count 490 H MPV 8.2 Neut % (Auto) 87.8 H Lymph % (Auto) 7.9 L [place] % (Auto) 2.8 Eos % (Auto) 1.2 Baso % (Auto) 0.3 Neut # 19.8 H Lymph # 1.8 [place] # 0.6 Eos # 0.3 Baso # 0.1 Neutrophils % (Manual) 86 H Band Neutrophils % 3 H Lymphocytes % (Manual) 7 L Monocytes % (Manual) 3 Eosinophils % (Manual) 1 Platelet Estimate Increased H Polychromasia Slight Hypochromasia (manual) Moderate Poikilocytosis (manual Slight Anisocytosis (manual) Slight Target Cells Slight Ovalocytes Slight Sodium 130 L Potassium 2.9 L Chloride 93 L Carbon Dioxide 23 Anion Gap 16 BUN 50 H Creatinine 3.9 H Est GFR ( Amer) 18 Est GFR (Non-Af Amer) 15 POC Glucose (mg/dL) 141 H Random Glucose 187 H Calcium 6.8 L Phosphorus 5.5 H Magnesium 2.1 Total Bilirubin 0.4 AST 54 ALT 65 Alkaline Phosphatase 114 Total Protein 6.2 L Albumin 2.5 L Globulin 3.7 Albumin/Globulin Ratio 0.7 L 10/19/17 10/19/17 10/19/17 07:23 11:31 16:07 WBC RBC Hgb Hct MCV MCH MCHC RDW Plt Count MPV Neut % (Auto) Lymph % (Auto) [place] % (Auto) Eos % (Auto) Baso % (Auto) Neut # Lymph # [place] # Eos # Baso # Neutrophils % (Manual) Band Neutrophils % Lymphocytes % (Manual) Monocytes % (Manual) Eosinophils % (Manual) Platelet Estimate Polychromasia Hypochromasia (manual) Poikilocytosis (manual Anisocytosis (manual) Target Cells Ovalocytes Sodium Potassium Chloride Carbon Dioxide Anion Gap BUN Creatinine Est GFR ( Amer) Est GFR (Non-Af Amer) POC Glucose (mg/dL) 195 H 209 H 154 H Random Glucose Calcium Phosphorus Magnesium Total Bilirubin AST ALT Alkaline Phosphatase Total Protein Albumin Globulin Albumin/Globulin Ratio Critical Care Progress Note - Nutrition Nutrition: Nutrition Category Date Time Status NPO Diet [DIET] Diets 08/21/17 Dinner Active Assessment/Plan (1) Hypotension (arterial) Current Visit: Yes Status: Acute Comment: Patient is hypotensive secondary to sepsis Elevated white count and pro-calcitonin level Antibiotics as per infectious disease Continue trach collar Pressors as needed (2) Pneumonia Current Visit: Yes Status: Acute (3) Cardiac arrest Current Visit: Yes Status: Acute (4) History of DVT (deep vein thrombosis) Current Visit: Yes Status: Acute (5) CKD (chronic kidney disease) Current Visit: No Status: Chronic Comment: (6) CHF (congestive heart failure) Current Visit: Yes Status: Acute Attending/Attestation - Attestation I have personally seen and examined this patient.: Yes I have fully participated in the care of the patient.: Yes I have reviewed all pertinent clinical information: Yes Notes (Text): 10/19/17 17:09 Patient seen and examined in the intensive care unit. Case discussed with house staff in the morning rounds. Status post tracheostomy on ventilator support Open eyes to stimuli Seen by surgery for sacral decubiti Continue antibiotics as per infectious disease Continue hemodialysis
[2017-10-19] MEDS: Albuterol-Ipratrop 3 mg / 0.5 (3 ml) UD INH SCH ×4 (13:56→23:44)
[2017-10-19] MEDS ORDERED: Albuterol-Ipratrop 3 mg / 0.5 (3 ml) UD INH SCH (14:00)
[2017-10-19] MEDS ORDERED: Albumin Human 25% (12.5 gm/50 ml) IV ONE ×2 (14:17→16:30)
[2017-10-19] MEDS: Epoetin Alfa 10,000 unit/ml Dialysis IV SCH (16:42)
[2017-10-19] MEDS: Fluconazole IV 100mg/50 ml NS 50 ML IVPB SCH (18:24)
[2017-10-19] MEDS ORDERED: Acetylcysteine 20% Inhal Soln (4ml) IH SCH (18:40)
[2017-10-19] MEDS: Collagenase 250 Units/gm Ointment(30 gm) TOP SCH (18:48)
[2017-10-19] MEDS: Acetylcysteine 20% Inhal Soln (4ml) INH SCH ×2 (19:30→23:44)
--- NOTE | 2017-10-19 21:49 | CP.PCM.PN ---
Subjective - Date & Time of Evaluation Date of Evaluation: 10/19/17 Time of Evaluation: 02:00 - Subjective Subjective: dictated Objective - Vital Signs/Intake and Output Vital Signs (last 24 hours): Temp Pulse Resp BP Pulse Ox 98 F 110 H 20 111/36 L 99 10/19/17 21:00 10/19/17 20:42 10/19/17 20:42 10/19/17 20:42 10/19/17 20:42 Intake and Output: 10/19/17 10/20/17 18:59 06:59 Intake Total 865 40 Output Total 0 Balance 865 40 - Medications Medications: Current Medications Acetylcysteine (Acetylcysteine 20%) 4 ml INH RQ4 [facility] Last Admin: 10/19/17 19:30 Dose: 4 ml Albuterol/Ipratropium (Duoneb 3 Mg/0.5 Mg (3 Ml) Ud) 3 ml INH RQ4 [facility] Last Admin: 10/19/17 19:29 Dose: 3 ml Apixaban (Eliquis) 2.5 mg PO BID [facility] Last Admin: 10/19/17 18:26 Dose: 2.5 mg Aspirin (Aspirin Chewable) 81 mg PO DAILY [facility] Last Admin: 10/19/17 09:34 Dose: 81 mg Collagenase (Santyl) 1 gm TOP DAILY [facility] Last Admin: 10/19/17 18:48 Dose: 1 applic Epoetin Chencho (Procrit) 10,000 unit IV [facility] [place] Last Admin: 10/19/17 16:42 Dose: 10,000 unit Famotidine (Pepcid) 20 mg PO DAILY [facility] Last Admin: 10/19/17 09:31 Dose: 20 mg Heparin Sodium (Porcine) (Heparin) 3,700 units IVP MWF [facility] Last Admin: 10/19/17 17:35 Dose: 3,700 units Cefepime HCl 1 gm/ Dextrose 50 mls @ 100 mls/hr IVPB Q24H [facility] Last Admin: 10/19/17 08:04 Dose: 100 mls/hr Fluconazole (Diflucan Iv 100 Mg/50 Ml Ns) 50 mls @ 100 mls/hr IVPB Q24H [facility] Last Admin: 10/19/17 18:24 Dose: 100 mls/hr Insulin Detemir (Levemir) 8 unit SC [facility] Last Admin: 10/19/17 21:15 Dose: 8 unit Insulin Human Regular (Novolin R) 5 unit SC AC [facility] Last Admin: 10/19/17 16:55 Dose: 5 unit Insulin Human Regular (Novolin R) 0 unit SC ACHS [facility] PRN Reason: Protocol Last Admin: 10/19/17 21:16 Dose: Not Given Metronidazole (Flagyl) 500 mg GT Q8 [facility] Last Admin: 10/19/17 21:15 Dose: 500 mg Midodrine (Proamatine) 5 mg PO TID [facility] Last Admin: 10/19/17 18:25 Dose: 5 mg Rosuvastatin Calcium (Crestor) 10 mg PO HS [facility] Last Admin: 10/19/17 21:15 Dose: 10 mg Saccharomyces Boulardii (Florastor) 250 mg PO BID [facility] Last Admin: 10/19/17 18:04 Dose: 250 mg - Labs Labs: 10/19/17 06:25 10/19/17 06:26 PT 13.4 SECONDS (9.7-12.2) H 10/14/17 16:30 INR 1.2 10/14/17 16:30 APTT 28 SECONDS (21-34) 10/14/17 16:30
--- NOTE | 2017-10-20 00:18 | PN ---
INFECTIOUS DISEASE FOLLOWUP SUBJECTIVE: I went to see the patient today. He was having dialysis done. His eyes were closed. He was attached to the Trach-Vent. PHYSICAL EXAMINATION: VITAL SIGNS: He was afebrile and his heart rate was 104, blood pressure 96/39, respirations were on the Trach-Vent. The patient remains on the vent. NECK: Supple. LUNGS: Clear. Decreased breath sounds bilaterally. HEART: S1 was tachycardic. ABDOMEN: Soft, PEG tube appeared unremarkable. EXTREMITIES: Venodyne foot protect is on. He does have a sacral decubitus. LABORATORY DATA: His white count is 22.6, hemoglobin 8, hematocrit 26.1, platelets count is 490, bands are 3, segs are 86. He was going to get dialysis. His sodium was 130, potassium was 2.9, they were going to do dialysis and renal attending was there. Microbiology acharya; urine culture has yeast and sacral wound came out with Enterobacter and Reny glabrata, which I may have to look into the antifungal, but for now, I will leave him on the present one and Enterobacter is sensitive to cefepime and we will continue with the Diflucan at this time. We will follow. He remains with Trach-Vent as well as end-stage renal disease and has sacral decubitus on the back. 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 Allan Lawrence MD
[2017-10-20] MEDS: Acetylcysteine 20% Inhal Soln (4ml) INH SCH ×2 (03:09→07:35)
[2017-10-20] MEDS: Albuterol-Ipratrop 3 mg / 0.5 (3 ml) UD INH SCH ×5 (03:10→19:11)
[2017-10-20 06:30] LABS: BASO % 0.1 % (0.0-2.0); EOS # 0.1 K/uL (0.0-0.7); EOS % 0.6 % (0.0-4.0); HEMATOCRIT 24.1 % (35.0-51.0); LYMPH # 1.5 K/uL (1.0-4.3); LYMPH % 7.9 % (20.0-40.0); MEAN CORPUSCULAR HEMOGLOBIN 27.5 pg (27.0-31.0); MEAN CORPUSCULAR HGB CONC 32.4 g/dL (33.0-37.0); MEAN PLATELET VOLUME 7.9 fL (7.2-11.7); MONO # 0.7 K/uL (0.0-0.8); MONO % 3.5 % (0.0-10.0); PLATELET COUNT 503 K/uL (130-400); RED CELL DISTRIBUTION WIDTH 26.8 % (11.5-14.5); WHITE BLOOD COUNT 19.2 K/uL (4.8-10.8)
[2017-10-20 06:50] LABS: BILIRUBIN,TOTAL 0.8 mg/dL (0.2-1.3); CALCIUM 7.2 mg/dl (8.6-10.4); TOTAL PROTEIN 5.6 g/dL (6.3-8.3)
--- NOTE | 2017-10-20 07:50 | CP.CCUPN ---
CCU Subjective - Physician Review Subjective (Free Text): Patient seen and examined at bedside. Patient non-verbal. Breathing comfortably. NO acute events overnight 10/20/17 07:47 CCU Objective - Vital Signs / Intake & Output Vital Signs (Last 4 hours): Vital Signs Temp Pulse Resp BP Pulse Ox 10/20/17 04:42 105 H 22 102/35 L 99 10/20/17 04:00 97.9 F 108 H 19 99 Intake and Output (Last 8hrs): Intake & Output 10/19/17 10/20/17 10/20/17 22:59 06:59 14:59 Intake Total 815 320 40 Output Total 0 0 0 Balance 815 320 40 Weight 157 lb 13.616 oz Intake: Intake, IV Amount 50 Right Distal Port 50 Tube Feeding 320 320 40 Other 445 Output: Urine 0 0 0 Urine, Voided 0 0 0 Other: # Bowel Movements 0 0 0 - Physical Exam Head: Positive for: Atraumatic, Other (trach) Pupils: Positive for: Sluggish Extroacular Muscles: Positive for: EOMI Conjunctiva: Positive for: Normal Mouth: Positive for: Moist Mucous Membranes Pharnyx: Positive for: Normal Neck: Positive for: Other (trach collar in place) Respiratory/Chest: Positive for: Clear to Auscultation, Good Air Exchange ( Anteriorly ), Other (Tracheostomy ). Negative for: Respiratory Distress, Accessory Muscle Use Cardiovascular: Positive for: Regular Rate and Rhythm, Normal S1, S2 Abdomen: Positive for: Other ((+) peg). Negative for: Tenderness, Peritoneal Signs Upper Extremity: Positive for: NORMAL PULSES, Other (patient moving upper extremities). Negative for: Edema Lower Extremity: Negative for: Edema, CALF TENDERNESS, Swelling Neurological: Positive for: Other (alert and awake but does not respond to voice commands). Negative for: Speech Normal Skin: Positive for: Warm, Dry, Other (stage III/IV decubiti). Negative for: Diaphoretic Psychiatric: Positive for: Alert, Other (non-verbal, trach). Negative for: Oriented x 3 - Medications Active Medications: Active Medications Generic Name Dose Route Start Last Admin Trade Name Freq PRN Reason Stop Dose Admin Albuterol/Ipratropium 3 ml 10/19/17 12:00 10/20/17 07:35 Duoneb 3 Mg/0.5 Mg (3 Ml) Ud INH 3 ml RQ4 LUIS FERNANDO Administration Apixaban 2.5 mg 08/27/17 12:00 10/19/17 18:26 Eliquis PO 2.5 mg BID LUIS FERNANDO Administration Ascorbic Acid 500 mg 10/20/17 10:00 Vitamin C 500 Mg Tab PEG DAILY [facility] Aspirin 81 mg 10/19/17 10:00 10/19/17 09:34 Aspirin Chewable PO 81 mg DAILY LUIS FERNANDO Administration Collagenase 1 gm 10/19/17 18:15 10/19/17 18:48 Santyl TOP 1 applic DAILY LUIS FERNANDO Administration Epoetin Chencho 10,000 unit 10/05/17 11:45 10/19/17 16:42 Procrit IV 10,000 unit [facility] Administration Famotidine 20 mg 08/09/17 10:00 10/19/17 09:31 Pepcid PO 20 mg DAILY LUIS FERNANDO Administration Heparin Sodium (Porcine) 3,700 units 10/17/17 12:00 10/19/17 17:35 Heparin IVP 3,700 units [facility] Administration Cefepime HCl 1 gm/ Dextrose 50 mls @ 100 mls/hr 10/12/17 08:30 10/19/17 08:04 IVPB 100 mls/hr Q24H LUIS FERNANDO Administration Fluconazole 50 mls @ 100 mls/hr 10/14/17 19:00 10/19/17 18:24 Diflucan Iv 100 Mg/50 Ml Ns IVPB 100 mls/hr Q24H LUIS FERNANDO Administration Insulin Detemir 8 unit 10/12/17 22:00 10/19/17 21:15 Levemir SC 8 unit [facility]HS [facility] Administration Insulin Human Regular 5 unit 10/12/17 16:30 10/19/17 16:55 Novolin R SC 5 unit AC LUIS FERNANDO Administration Insulin Human Regular 0 unit 10/14/17 07:30 10/19/17 21:16 [facility]olin R SC [facility] Metronidazole 500 mg 10/16/17 14:00 10/20/17 06:49 Flagyl GT 500 mg Q8 LUIS FERNANDO Administration Midodrine 5 mg 10/17/17 14:00 10/19/17 18:25 Proamatine PO 5 mg TID LUIS FERNANDO Administration Multivitamins/Vitamin C 5 ml 10/20/17 10:00 Multi-Delyn Liquid PEG DAILY [facility] Rosuvastatin Calcium 10 mg 10/02/17 22:00 11/22/17 21:15 Crestor PO 10 mg HS LUIS FERNANDO Administration Saccharomyces Bobi 250 mg 09/26/17 18:00 10/19/17 18:04 Florastor PO 250 mg BID LUIS FERNANDO Administration - Patient Studies Lab Studies: Lab Studies 10/20/17 10/20/17 10/20/17 Range/Units 07:18 06:16 06:16 WBC 19.2 H (4.8-10.8) K/uL RBC 2.83 L (4.40-5.90) Mil/uL Hgb 7.8 L (12.0-18.0) g/dL Hct 24.1 L (35.0-51.0) % MCV 85.0 (80.0-94.0) fL MCH 27.5 (27.0-31.0) pg MCHC 32.4 L (33.0-37.0) g/dL RDW 26.8 H (11.5-14.5) % Plt Count 503 H (130-400) K/uL MPV 7.9 (7.2-11.7) fL Neut % (Auto) 87.9 H (50.0-75.0) % Lymph % (Auto) 7.9 L (20.0-40.0) % [place] % (Auto) 3.5 (0.0-10.0) % Eos % (Auto) 0.6 (0.0-4.0) % Baso % (Auto) 0.1 (0.0-2.0) % Neut # 16.9 H (1.8-7.0) K/uL Lymph # 1.5 (1.0-4.3) K/uL [place] # 0.7 (0.0-0.8) K/uL Eos # 0.1 (0.0-0.7) K/uL Baso # 0.0 (0.0-0.2) K/uL Neutrophils % (Manual) (50-75) % Band Neutrophils % (0-2) % Lymphocytes % (Manual) (20-40) % Monocytes % (Manual) (0-10) % Eosinophils % (Manual) (0-4) % Platelet Estimate (NORMAL) Polychromasia Hypochromasia (manual) Poikilocytosis (manual Anisocytosis (manual) Target Cells Ovalocytes Sodium 134 (132-148) mmol/L Potassium 3.0 L (3.6-5.2) mmol/L Chloride 97 L (98-107) mmol/L Carbon Dioxide 27 (22-30) mmol/L Anion Gap 13 (10-20) BUN 29 H (9-20) mg/dL Creatinine 2.5 H (0.8-1.5) mg/dL Est GFR ( Amer) 30 Est GFR (Non-Af Amer) 25 POC Glucose (mg/dL) 204 H (65-110) mg/dL Random Glucose 151 H (75-110) mg/dL Calcium 7.2 L (8.6-10.4) mg/dl Total Bilirubin 0.8 (0.2-1.3) mg/dL AST 48 (17-59) U/L ALT 53 (21-72) U/L Alkaline Phosphatase 110 (38-126) U/L Total Protein 5.6 L (6.3-8.3) g/dL Albumin 2.8 L (3.5-5.0) g/dL Globulin 2.8 (2.2-3.9) gm/dL Albumin/Globulin Ratio 1.0 (1.0-2.1) 10/19/17 10/19/17 10/19/17 Range/Units 21:11 16:07 11:31 WBC (4.8-10.8) K/uL RBC (4.40-5.90) Mil/uL Hgb (12.0-18.0) g/dL Hct (35.0-51.0) % MCV (80.0-94.0) fL MCH (27.0-31.0) pg MCHC (33.0-37.0) g/dL RDW (11.5-14.5) % Plt Count (130-400) K/uL MPV (7.2-11.7) fL Neut % (Auto) (50.0-75.0) % Lymph % (Auto) (20.0-40.0) % [place] % (Auto) (0.0-10.0) % Eos % (Auto) (0.0-4.0) % Baso % (Auto) (0.0-2.0) % Neut # (1.8-7.0) K/uL Lymph # (1.0-4.3) K/uL [place] # (0.0-0.8) K/uL Eos # (0.0-0.7) K/uL Baso # (0.0-0.2) K/uL Neutrophils % (Manual) (50-75) % Band Neutrophils % (0-2) % Lymphocytes % (Manual) (20-40) % Monocytes % (Manual) (0-10) % Eosinophils % (Manual) (0-4) % Platelet Estimate (NORMAL) Polychromasia Hypochromasia (manual) Poikilocytosis (manual Anisocytosis (manual) Target Cells Ovalocytes Sodium (132-148) mmol/L Potassium (3.6-5.2) mmol/L Chloride (98-107) mmol/L Carbon Dioxide (22-30) mmol/L Anion Gap (10-20) BUN (9-20) mg/dL Creatinine (0.8-1.5) mg/dL Est GFR ( Amer) Est GFR (Non-Af Amer) POC Glucose (mg/dL) 174 H 154 H 209 H (65-110) mg/dL Random Glucose (75-110) mg/dL Calcium (8.6-10.4) mg/dl Total Bilirubin (0.2-1.3) mg/dL AST (17-59) U/L ALT (21-72) U/L Alkaline Phosphatase (38-126) U/L Total Protein (6.3-8.3) g/dL Albumin (3.5-5.0) g/dL Globulin (2.2-3.9) gm/dL Albumin/Globulin Ratio (1.0-2.1) 10/19/17 Range/Units 06:25 WBC (4.8-10.8) K/uL RBC (4.40-5.90) Mil/uL Hgb (12.0-18.0) g/dL Hct (35.0-51.0) % MCV (80.0-94.0) fL MCH (27.0-31.0) pg MCHC (33.0-37.0) g/dL RDW (11.5-14.5) % Plt Count (130-400) K/uL MPV (7.2-11.7) fL Neut % (Auto) (50.0-75.0) % Lymph % (Auto) (20.0-40.0) % [place] % (Auto) (0.0-10.0) % Eos % (Auto) (0.0-4.0) % Baso % (Auto) (0.0-2.0) % Neut # (1.8-7.0) K/uL Lymph # (1.0-4.3) K/uL [place] # (0.0-0.8) K/uL Eos # (0.0-0.7) K/uL Baso # (0.0-0.2) K/uL Neutrophils % (Manual) 86 H (50-75) % Band Neutrophils % 3 H (0-2) % Lymphocytes % (Manual) 7 L (20-40) % Monocytes % (Manual) 3 (0-10) % Eosinophils % (Manual) 1 (0-4) % Platelet Estimate Increased H (NORMAL) Polychromasia Slight Hypochromasia (manual) Moderate Poikilocytosis (manual Slight Anisocytosis (manual) Slight Target Cells Slight Ovalocytes Slight Sodium (132-148) mmol/L Potassium (3.6-5.2) mmol/L Chloride (98-107) mmol/L Carbon Dioxide (22-30) mmol/L Anion Gap (10-20) BUN (9-20) mg/dL Creatinine (0.8-1.5) mg/dL Est GFR ( Amer) Est GFR (Non-Af Amer) POC Glucose (mg/dL) (65-110) mg/dL Random Glucose (75-110) mg/dL Calcium (8.6-10.4) mg/dl Total Bilirubin (0.2-1.3) mg/dL AST (17-59) U/L ALT (21-72) U/L Alkaline Phosphatase (38-126) U/L Total Protein (6.3-8.3) g/dL Albumin (3.5-5.0) g/dL Globulin (2.2-3.9) gm/dL Albumin/Globulin Ratio (1.0-2.1) Laboratory Results - last 24 hr 10/19/17 10/19/17 10/19/17 06:25 11:31 16:07 WBC RBC Hgb Hct MCV MCH MCHC RDW Plt Count MPV Neut % (Auto) Lymph % (Auto) [place] % (Auto) Eos % (Auto) Baso % (Auto) Neut # Lymph # [place] # Eos # Baso # Neutrophils % (Manual) 86 H Band Neutrophils % 3 H Lymphocytes % (Manual) 7 L Monocytes % (Manual) 3 Eosinophils % (Manual) 1 Platelet Estimate Increased H Polychromasia Slight Hypochromasia (manual) Moderate Poikilocytosis (manual Slight Anisocytosis (manual) Slight Target Cells Slight Ovalocytes Slight Sodium Potassium Chloride Carbon Dioxide Anion Gap BUN Creatinine Est GFR ( Amer) Est GFR (Non-Af Amer) POC Glucose (mg/dL) 209 H 154 H Random Glucose Calcium Total Bilirubin AST ALT Alkaline Phosphatase Total Protein Albumin Globulin Albumin/Globulin Ratio 10/19/17 10/20/17 10/20/17 21:11 06:16 06:16 WBC 19.2 H RBC 2.83 L Hgb 7.8 L Hct 24.1 L MCV 85.0 MCH 27.5 MCHC 32.4 L RDW 26.8 H Plt Count 503 H MPV 7.9 Neut % (Auto) 87.9 H Lymph % (Auto) 7.9 L [place] % (Auto) 3.5 Eos % (Auto) 0.6 Baso % (Auto) 0.1 Neut # 16.9 H Lymph # 1.5 [place] # 0.7 Eos # 0.1 Baso # 0.0 Neutrophils % (Manual) Band Neutrophils % Lymphocytes % (Manual) Monocytes % (Manual) Eosinophils % (Manual) Platelet Estimate Polychromasia Hypochromasia (manual) Poikilocytosis (manual Anisocytosis (manual) Target Cells Ovalocytes Sodium 134 Potassium 3.0 L Chloride 97 L Carbon Dioxide 27 Anion Gap 13 BUN 29 H Creatinine 2.5 H Est GFR ( Amer) 30 Est GFR (Non-Af Amer) 25 POC Glucose (mg/dL) 174 H Random Glucose 151 H Calcium 7.2 L Total Bilirubin 0.8 AST 48 ALT 53 Alkaline Phosphatase 110 Total Protein 5.6 L Albumin 2.8 L Globulin 2.8 Albumin/Globulin Ratio 1.0 10/20/17 07:18 WBC RBC Hgb Hct MCV MCH MCHC RDW Plt Count MPV Neut % (Auto) Lymph % (Auto) [place] % (Auto) Eos % (Auto) Baso % (Auto) Neut # Lymph # [place] # Eos # Baso # Neutrophils % (Manual) Band Neutrophils % Lymphocytes % (Manual) Monocytes % (Manual) Eosinophils % (Manual) Platelet Estimate Polychromasia Hypochromasia (manual) Poikilocytosis (manual Anisocytosis (manual) Target Cells Ovalocytes Sodium Potassium Chloride Carbon Dioxide Anion Gap BUN Creatinine Est GFR ( Amer) Est GFR (Non-Af Amer) POC Glucose (mg/dL) 204 H Random Glucose Calcium Total Bilirubin AST ALT Alkaline Phosphatase Total Protein Albumin Globulin Albumin/Globulin Ratio Fingerstick Blood Sugar Results: 174 Review of Systems - Review of Systems All systems: reviewed and no additional remarkable complaints except (limited ROS 2nd underlying clinical status) Critical Care Progress Note - Ventilator Checklist PUD Prophalyxis: Yes DVT Prophylaxis: Yes Oral Care with Chlorhexidine Gluconate {CHG}: Yes - Extremities/Vascular Does the Patient have a Central Venous Catheter?: No Catheter Insertion Criteria: Stage 3/Stage 4 decubits as per policy - Prophylaxis GI Prophylaxis GI: Pepsid - Nutrition Nutrition: Nutrition Category Date Time Status NPO Diet [DIET] Diets 08/21/17 Dinner Active Assessment/Plan - Assessment and Plan (Free Text) Plan: 77 year old male with PMHx CAD/CHF, ESRD and dysfunctional brain injury and prolonged hospital stay, recently transferred to ICU for hypotension and altered mental status Plan: Neuro: no changem, avoid any sedations Alert, non-responsive Pulm: Management: Tracheostomy CXR clear, little no no secretions tolerating trach collar CV:CAD/P. A-fib Hypotension: resolved, rate controlled on eliquis h/o s/p Cardica arrest (08/10/17), Hx of CAD with prior stent placement, HTN, HLD, [facility], Dr. Cortés follow up Sepsis: source likly decubiti: culture VRE + germania + enterobacter sensitive to cefepime Renal: CKD, continue Dialysis MWF () Procrit 10,000 unit IV MWF Midodrine 5 mg PO TID Endo: DM type 2 ISS- low dose protocol Levemir 8 units AMHS Novolog 5 units AC Heme:Anemia of chronic disease (Dr. Crawford) Hgb 8.0, stable from yesterday 7.5 -continue EPA Right plantar pressure ulcer - Dr. Lundberg consulted offloading heel boots, start vitamin C, MVI and turn q2hrs Sacral Decub - unstageable Monitor electrolytes Prophylaxis DVT: SCDs and Eliquis 2.5mg PO BID GI: pepcid 20 mg PO daily, florastor 250mg PO BID
--- NOTE | 2017-10-20 08:03 | CP.PCM.PN ---
Subjective - Date & Time of Evaluation Date of Evaluation: 10/20/17 Time of Evaluation: 08:00 - Subjective Subjective: Medical Attending Note Patient seen and examined this morning. Patient is non-verbal, no acute distress, will move arms when asked to, will smile when asked to, Patient does not talk. Discussed with PM nurse, patient had multiple bowel movments over night (4), nonbloody, loose stool. Patient's feeding at 30ml/hr; had attempted to increase to 40mm/hr but had increased residual. Objective - Vital Signs/Intake and Output Vital Signs (last 24 hours): Temp Pulse Resp BP Pulse Ox 97.9 F 105 H 22 102/35 L 99 10/20/17 04:00 10/20/17 04:42 10/20/17 04:42 10/20/17 04:42 10/20/17 04:42 Intake and Output: 10/20/17 10/20/17 06:59 18:59 Intake Total 600 40 Output Total 0 0 Balance 600 40 - Medications Medications: Current Medications Albuterol/Ipratropium (Duoneb 3 Mg/0.5 Mg (3 Ml) Ud) 3 ml INH RQ4 [facility] Last Admin: 10/20/17 07:35 Dose: 3 ml Apixaban (Eliquis) 2.5 mg PO BID [facility] Last Admin: 10/19/17 18:26 Dose: 2.5 mg Ascorbic Acid (Vitamin C 500 Mg Tab) 500 mg PEG DAILY [facility] Aspirin (Aspirin Chewable) 81 mg PO DAILY [facility] Last Admin: 10/19/17 09:34 Dose: 81 mg Collagenase (Santyl) 1 gm TOP DAILY [facility] Last Admin: 10/19/17 18:48 Dose: 1 applic Epoetin Chencho (Procrit) 10,000 unit IV MWF [facility] Last Admin: 10/19/17 16:42 Dose: 10,000 unit Famotidine (Pepcid) 20 mg PO DAILY [facility] Last Admin: 10/19/17 09:31 Dose: 20 mg Heparin Sodium (Porcine) (Heparin) 3,700 units IVP MWF [facility] Last Admin: 10/19/17 17:35 Dose: 3,700 units Cefepime HCl 1 gm/ Dextrose 50 mls @ 100 mls/hr IVPB Q24H [facility] Last Admin: 10/19/17 08:04 Dose: 100 mls/hr Fluconazole (Diflucan Iv 100 Mg/50 Ml Ns) 50 mls @ 100 mls/hr IVPB Q24H [facility] Last Admin: 10/19/17 18:24 Dose: 100 mls/hr Insulin Detemir (Levemir) 8 unit SC AMHS [facility] Last Admin: 10/19/17 21:15 Dose: 8 unit Insulin Human Regular (Novolin R) 5 unit SC AC [facility] Last Admin: 10/19/17 16:55 Dose: 5 unit Insulin Human Regular (Novolin R) 0 unit SC ACHS [facility] PRN Reason: Protocol Last Admin: 10/19/17 21:16 Dose: Not Given Metronidazole (Flagyl) 500 mg GT Q8 [facility] Last Admin: 10/20/17 06:49 Dose: 500 mg Midodrine (Proamatine) 5 mg PO TID [facility] Last Admin: 10/19/17 18:25 Dose: 5 mg Multivitamins/Vitamin C (Multi-Delyn Liquid) 5 ml PEG DAILY [facility] Rosuvastatin Calcium (Crestor) 10 mg PO HS [facility] Last Admin: 10/19/17 21:15 Dose: 10 mg Saccharomyces Boulardii (Florastor) 250 mg PO BID [facility] Last Admin: 10/19/17 18:04 Dose: 250 mg - Labs Labs: 10/20/17 06:16 10/20/17 06:16 PT 13.4 SECONDS (9.7-12.2) H 10/14/17 16:30 INR 1.2 10/14/17 16:30 APTT 28 SECONDS (21-34) 10/14/17 16:30 - Constitutional Appears: Chronically Ill - Head Exam Head Exam: NORMAL INSPECTION Additional comments: trach collar/c/d/i prevalon boots b/l lower extremities heel eschar - Eye Exam Eye Exam: EOMI. absent: Nystagmus, Scleral icterus - Respiratory Exam Respiratory Exam: Decreased Breath Sounds, Rhonchi. absent: Respiratory Distress - Cardiovascular Exam Cardiovascular Exam: Tachycardia, +S1, +S2 - GI/Abdominal Exam GI & Abdominal Exam: Soft, Normal Bowel Sounds. absent: Distended, Firm, Guarding, Rigid, Tenderness, Rebound - Neurological Exam Neurological Exam: Awake Assessment and Plan - Assessment and Plan (Free Text) Assessment: (1) Acute Respiratory Failure ARDS Cardiac Arrest Pulmonary Edema Nonstemi Assessment and Plan: * Code Blue on 08/10: asystole, cardiopulmonary resuscitative measures initiated , requiring 3 epis, bicarbonate, ROSC achieved and intubated and brought to the ICU. * PRODUCT SUPPORT REPRESENTATIVE 10/14 for Hypotension; unresponsiveness, secondary to sepsis-->patient is currently on ICU. * Started on Midrodrine 5mg PO TID * Pulmonary: Dr Mena (Dr. Jeffers covering until 09/04/17)-->help appreciated * Cardiology: Dr. Cortés on board-->help appreciated * GI (Dr. Wills) on board-->help appreciated * S/P Tracheostomy 08/22 * S/P Peg tube placement 08/25 * s/p insertion of right posterior chest tube 08/19-->removed 08/24/17 * Passy Weldon Trach placed 09/15 * There was consideration for possible thoracentesis of left side pleural effusion, evaluated by IR, there is no fluid to drain per Dr. Gross * Chest xray (08/26): right arm PICC is seen with the tip of distal subclavian vein. PICC may be used * Chest Xray (09/20/17): lines and tubes stable position, left-sided pacemaker, moderate venous congestion, left basilar opacity with associated small left pleural effusion, Cardiomegaly. Prominent aorta, degenrative changes in spine and shoulders * Medications: * Acetylcysteine 20% 4ml INH RQ6H * Duoneb 3ml INH RQ6H * Aspirin 81mg PO daily * Eliquis 2.5mg PO bid * off Lopressor 50mg PO bid * Pulmonary and cardiology following (2) Abnormal Stress Test History of AICD History of Coronary Artery Disease Assessment and Plan: * Cardiology (Dr. Cortés) on board-->help appreciated * TSH: 1.16; T4: 1.53 * Echocardiogram (08/08/17): left ventricle systolic function is severely impaired. EF: 25-30%; global hypokinesis of left ventricle mild aortic regurgitation. Mitral regurgitation is moderate. Moderate-severe pulmonary hypertension * Plan was for cardiac catheterization; delayed due to acute renal failure; Attempted gentle hydration and mucomyst on 08/09 to optimize prior to cath * On 08/10, patient was in asystole, ACLS protocol, ROSC achieved, intubated and transfered to the ICU. Patient in acute pulmonary edema. * Patient hospitalized and require to and from ICU twice during this admission * Cardiac cath postponed at this time * Medications: * Acetylcysteine 20% 4ml INH RQ6H * Duoneb 3ml INH RQ6H * Aspirin 81mg PO daily * Eliquis 2.5mg PO bid * off Lopressor 50mg PO bid given hypotension * Crestor 10mg POqHS * Lisinopril 5mg PO daily (3) Atrial flutter Assessment and Plan: * Cardiology (Dr. Cortés) on board-->help appreciated * Refractory to Lopressor/Cardizem IVP * Aspirin 81mg Po daily * c/w Eliquis 2.5mg PO bid * off Lopressor 50mg PO bid secondary to hypotension Status: Resolved (4) Acute on Chronic Systolic CHF exacerbation Assessment and Plan: * Cardiology (Dr. Cortés) on board-->help appreciated * Transferred to the ICU on 08/10 following cardiac arrest and intubation. * Echocardiogram (08/08/17): left ventricular systolic function is severely impaired. EF: 25-30%; global hypokinesis of left ventricle mild aortic regurgitation. Mitral regurgitation is moderate. Moderate-severe pulmonary hypertension * Medications: * Aspirin 81mg PO daily * Lopressor 50mg PO bid-->held 10/14/17 * Lisinopril 5mg PO daily * Crestor 10mg POqHS Status: Stable (5) Leukocytosis Assessment and Plan: * Infectious Disease (Dr. Lawrence) on board-->help appreciated * Decreasing * Abnormal UA wit pyuria/hematuria * Heel eschar-->Podiatry on board * patient is on Cefepime 1 gram IV Q24H (active 10/12/17), Aztreonam 1 gram IV Q 24H (active since 10/13/17), and d/c Zyvox 600mg PO BID (active since 10/14/17 ), Diflucan 100mg IV Q 24 (active since 10/14/17) and Flagyl 500mg GT Q 8H * Etiology: pneumonia, and sacral decub; patient has alot of secretions; nursing and respiratory are suctioning * Pleural Fluid 08/19/17 did not show any growth * Blood cultures (09/13): no growth X5 days X2 * Blood cultures (09/07) during dialysis: no growth X5 days X2 * UA and urine culture (08/27): Yeast Species. * UA and urine culture (09/13): Yeast Species. * Urine culture (09/20): Yeast species * Urine culture (10/06/17): No growth * Urine culture (10/14/17): Yeast species * Sputum (10/14/17): Normal oral diane * MRSA (10/15/17): MRSA not detected * 09/07/17 Legionella Culture: negative * 09/07/17 Mycobacteria: negative * 09/07/17 Sputum: Enterocloace Bacter; yeast * Blood cultures (09/13): no growth X5 days X2 * Blood cultures (09/07) during dialysis: no growth X5 days X2 * Sacral Ulcer (09/14/17): VRE and Reny Albicans * Sacral Ulcer (09/15/17): VRE and Reny Albicans * Sacral Ulcer (09/20/17): VRE and Reny Albicans * Sacral Ulcer (09/30/17): Enterobacter Aerogenes-->Sensitive Cefepime IV * Blood cultures (10/13/17): no growth for 5 days X2 * Bone Scan performed 09/17/17 to check for Osteomyelitis at the Sacrum: negative for osteomyelitis * c/w Tigecycline (09/16/17): which will cover the VRE in Sacral Wound Culture 09/14/17 and repeat on 09/20/17--to finished 10/05/17 * c/w Diflucan 200 mg PO 1x/day (09/13/17-10/16/17: which will cover with Yeast in the Sputum, Urine, and Sacral Wound Culture-->stopped on 10/06/17; restarted 10/14/17- present * Procalcitionin: 8.60 (09/06/17)-->5.80 (09/20)-->2.86 (10/04)--->4.91 (10/12) * Per ID, Patient started on Cefepime 1 gram IV Q24H (active 10/12/17), Aztreonam 1 gram IV Q 24H (active since 10/13/17), and Zyvox 600mg PO BID ( active since 10/14/17) Status: Acute (6) Pneumonia Assessment and Plan: * Pulmonary (Dr. Mena) on board-->help appreciated * Infectious Disease (Dr. Lawrence)-->help appreciated * Rapid A strep, Influenza A and B studies, Urine Legionella, Mycoplasma studies = Negative * Florastor 250mg PO bid * 08/07/17: +Strep Pneumoniae in the urine * Meropenem 500mg IV Q 8 hours (08/14/17 through 08/18/17) and Zosyn 2.25 mg IV Q6H (08/13/17 through 08/18/17) * Cefepime 1 gm IV Q24H: started on 08/19/17 and was discontinued by ID Dr. Lawrence on 08/30/17: monitor vitals and labs * Restarted on 10/12/17 * s/p right posterior chest tube 08/19-08/24 * Sputum Culture 08/19/17 shows No growth * Pleural fluid 08/19/17: No growth * 09/07/17 Sputum: Enterocloace Bacter and Yeast Species: See Antibiotic treatment in previous Assessment and Plan * Sputum 09/10/17 shows NO AFB * Procalcitionin: 8.60 (09/06/17)-->5.80 (09/20)-->2.86 (10/04)--->4.91 (10/12) * Patient started on Cefepime 1 gram IV Q24H (active 10/12/17), Aztreonam 1 gram IV Q 24H (active since 10/13/17), and Zyvox 600mg PO BID (active since ) Status: Acute (7) HTN (hypertension) Assessment and Plan: * PRODUCT SUPPORT REPRESENTATIVE 10/14--:hypotension--->started on Midodrine 5mg PO TID * d/c Lopressor 50mg PO bid * d/cLisinopril 5mg PO daily Status: Chronic (8) CKD (chronic kidney disease) on Dialysis Assessment and Plan: * Dr. Miranda (nephrology) consulted on the case * Hx of CKD-->Started on dialysis 08/15/17 * Kurtis catheter placed and removed 08/22 * s/p Right Chest Permcath 08/22 * Patient is on dialysis M-W-F; oliguric * Phoslo 1334mg GT TID * Epoetin 10,000 unit IV MWF * Requiring Albumin during dialysis sessions Status: Chronic (9) Diabetes mellitus Assessment and Plan: * Accuchecks Q6H * HgbA1c 8.4 * Started peg feedings on 08/26/17-->at 30ml/hr; patient having high residuals when they attempt to increase * Levemir 8 unit AM and HS * Novolin R 5 unit AC (10) HLD (hyperlipidemia) Assessment and Plan: * LFTS have normalized; will restart statin 09/20/17 * Crestor 10mg POqHS Status: Chronic (11) Anemia Assessment and Plan: * Heme-oncology (Dr. Giles bender) on board-->help appreciated * Likely iron deficiency anemia based on prior admissions * Ferritin 27.4, Iron 22, TIBC 322, % Saturation 7 * Ferric Sodium Gluconate 125mg IVPB daily (active 08/08-08/16) * Procrit 10,000 units M-W- * Monitor Hgb/Hct: stable Status: Chronic (12) History of DVT (deep vein thrombosis) Assessment and Plan: * Patient was previously on Eliquis for a prior history of DVT. * Repeat dopplers 08/09/17 are negative for DVT * Off Heparin Drip 08/17/17 * Started Eliquis 2.5mg PO BID for atrial flutter and history of DVT Status: Chronic (13) UTI Assessment and Plan: * Infectious disease (Dr. Lawrence) on board-->help appreciated * Exchange jaquez out and repeat urine cultures * Urine Culture 08/12/17 showed Gram Negative Rods: NO identification and NO sensitivities were performed * Meropenem 500mg IV Q 12hours (active since 08/14/17 through 08/18/17) to cover for UTI per ID * Repeat Urine Culture 08/18/17 shows NO growth * 08/25: reculture in light of leukocytosis * 08/27: pending urine studies * 08/30: Urine Culture 08/27/17 showed Yeast Species but no antifungal at that time secondary to recent history of Elevated LFTs * Urine Culture 09/13/17 showed Yeast Species: completed Diflucan on 10/06/17 * Urine culture (10/06/17): No growth * Urine culture (10/14/17): yeast Status: Chronic (14) Confusion; Alzheimer's Dementia Assessment and Plan: * Per daughter, patient has been getting bouts of confusion over the past year but appears at baseline. Patient has not seen formal neurology as outpatient per daughter. Per , prior to event, noted Alzheimers' disease dx one year ago * CT head w/o contrast (08/10/17):acute os subacute lacune infarct is not excluded in the left basal ganglia inferiorly with definitive chronic lacune identified in the right basal ganglia superiorly. No acute or subacute lobar brain infarction is appreciable by standard CT criteria. Mild age-related neuro degenerative changes are identifed. No acute intracranial hemorrhage or mass is identified throughout * 08/26: Off Sedation-->patient moves all extremities randomly but does not follow directions * 08/27: off sedation-->patient is very calm, smiles at his * 08/28: off sedation-->patient is very calm * 10/14: PRODUCT SUPPORT REPRESENTATIVE for hypotension and lethargy; CT Head was repeated given patient is on Eliquis: * CT Head w/o contrast (10/14/17): no intracranial mass, hemorrhage, or evidence of acute infarct. 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 Old right external capsule ischemic change. Age related atrophy and chronic microvascular ischemic change Status: Chronic (15) Unstageable Sacral Ulcer, Left Ear Auricle Ulcer, Right Heal Ulcer Assessment and Plan: * Wound care on board * WOUND CARE [id number] patients sacral ulcer. Base softening up. Must continue medi-honey (nickel thick) then cover with a bordered dressing to be done daily. Patient must be repositioned frequently to optimize offloading of sacral region. Right heel is dark purple in color. Must continue to elevate both heels at all times to optimize heel offloading. Hemoglobin-9.6, Marshal of 14. Patient continues to be at risk for skin breakdown. will continue to follow. 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 * Sacral Ulcer (09/15/17): VRE and Reny Albicans * Sacral Ulcer (09/20/17): VRE and Reny Albicans * Sacral Ulcer (09/30/17): Enterobacter Aerogenes-->Sensitive Cefepime IV * Bone Scan performed 09/17/17 to check for Osteomyelitis at the Sacrum: negative for osteomyeliti * Daily wound care and dressing change by medicine team; healing appropriately Antibiotics * c/w Tigecycline (09/16/17: which will cover the VRE in Sacral Wound Culture and repeat on 09/20/17-->PER ID, d/c 10/15/17 * c/w Diflucan 200 mg PO 1x/day (09/13/17; Day 20): which will cover with Yeast in the Sputum, Urine, and Sacral Wound Culture--> PER ID, D/c 10/06/17; restarted on 10/14/17 * Procalcitionin: 8.60 (09/06/17)-->5.80 (09/20)-->2.86 (10/04)--->4.91 (10/12) * Patient started on Cefepime 1 gram IV Q24H (active 10/12/17), Aztreonam 1 gram IV Q 24H (active since 10/13/17), and Zyvox 600mg PO BID (active since ) Status: Acute (16) Elevated LFTs Assessment and Plan: * Have normalized * Currently off Diflucan since 10/06/17; restart 10/14/17 * Crestor 10mg POqHS (17). Diarrhea * Order for stool studies, c.dif (18). Hyponatremia-->resolved (19). Prophylactic measure Assessment and Plan: * Pepcid 20mg PO daily * Start Eliquis 2.5mg PO BID * s/p peg placement 08/25 * s/p trachesostomy 08/22 * s/p Permcath placement 08/22 removal Kurtis catheter * s/p right posterior chest tube 08/19-->removed 08/24 * s/p Right Arm PICC 08/26 * Passy Flex Trach placed 09/15 * (Jovita Serrano): -->number provided to the nurse- ->consented for peg placement; discussed about LTAC 08/26 * Spoke with Dr. Pickard, MARIAJOSE regarding patient's hospitalization up until 08/26 Disposition: * Discussed with case management and social welfare clerk, working with patient's family and insurance to determine placement. Ongoing talks. Patient will also need dialysis placement. * Patient having diarrhea in spite of Flexseal; ordered for stool studies including C.dif, ova and parasite, culture stool leukocytes * Reconsult dietary given patient is having diarrhea * Infectious disease adjusted medications on 10/14 (PRODUCT SUPPORT REPRESENTATIVE). Patient started on Cefepime 1 gram IV Q24H (active 10/12/17), Aztreonam 1 gram IV Q 24H (active since 10/13/17), d/c Zyvox 600mg PO BID by ID, and on Flagyl 500mg GT Q8H * Off beta ana maria, ronaldo inhibitor since 10/14 due to hypotensive episodes
--- NOTE | 2017-10-20 08:07 | CP.PCM.PN ---
Subjective - Date & Time of Evaluation Date of Evaluation: 10/20/17 Time of Evaluation: 08:04 - Subjective Subjective: Still with diarrhea; c.diff negative s/p dialysis 10/19 BP low but no pressors required same lethargy still anuric Objective - Vital Signs/Intake and Output Vital Signs (last 24 hours): Temp Pulse Resp BP Pulse Ox 97.9 F 105 H 22 102/35 L 99 10/20/17 04:00 10/20/17 04:42 10/20/17 04:42 10/20/17 04:42 10/20/17 04:42 Intake and Output: 10/20/17 10/20/17 06:59 18:59 Intake Total 600 40 Output Total 0 0 Balance 600 40 - Medications Medications: Current Medications Albuterol/Ipratropium (Duoneb 3 Mg/0.5 Mg (3 Ml) Ud) 3 ml INH RQ4 [facility] Last Admin: 10/20/17 07:35 Dose: 3 ml Apixaban (Eliquis) 2.5 mg PO BID [facility] Last Admin: 10/19/17 18:26 Dose: 2.5 mg Ascorbic Acid (Vitamin C 500 Mg Tab) 500 mg PEG DAILY [facility] Aspirin (Aspirin Chewable) 81 mg PO DAILY [facility] Last Admin: 10/19/17 09:34 Dose: 81 mg Collagenase (Santyl) 1 gm TOP DAILY [facility] Last Admin: 10/19/17 18:48 Dose: 1 applic Epoetin Chencho (Procrit) 10,000 unit IV MWF [facility] Last Admin: 10/19/17 16:42 Dose: 10,000 unit Famotidine (Pepcid) 20 mg PO DAILY [facility] Last Admin: 10/19/17 09:31 Dose: 20 mg Heparin Sodium (Porcine) (Heparin) 3,700 units IVP MWF [facility] Last Admin: 10/19/17 17:35 Dose: 3,700 units Cefepime HCl 1 gm/ Dextrose 50 mls @ 100 mls/hr IVPB Q24H [facility] Last Admin: 10/19/17 08:04 Dose: 100 mls/hr Fluconazole (Diflucan Iv 100 Mg/50 Ml Ns) 50 mls @ 100 mls/hr IVPB Q24H [facility] Last Admin: 10/19/17 18:24 Dose: 100 mls/hr Insulin Detemir (Levemir) 8 unit SC AMHS [facility] Last Admin: 10/19/17 21:15 Dose: 8 unit Insulin Human Regular (Novolin R) 5 unit SC AC [facility] Last Admin: 10/19/17 16:55 Dose: 5 unit Insulin Human Regular (Novolin R) 0 unit SC ACHS [facility] PRN Reason: Protocol Last Admin: 10/19/17 21:16 Dose: Not Given Metronidazole (Flagyl) 500 mg GT Q8 [facility] Last Admin: 10/20/17 06:49 Dose: 500 mg Midodrine (Proamatine) 5 mg PO TID [facility] Last Admin: 10/19/17 18:25 Dose: 5 mg Multivitamins/Vitamin C (Multi-Delyn Liquid) 5 ml PEG DAILY [facility] Rosuvastatin Calcium (Crestor) 10 mg PO HS [facility] Last Admin: 10/19/17 21:15 Dose: 10 mg Saccharomyces Boulardii (Florastor) 250 mg PO BID [facility] Last Admin: 10/19/17 18:04 Dose: 250 mg - Labs Labs: 10/20/17 06:16 10/20/17 06:16 PT 13.4 SECONDS (9.7-12.2) H 10/14/17 16:30 INR 1.2 10/14/17 16:30 APTT 28 SECONDS (21-34) 10/14/17 16:30 - Constitutional Appears: No Acute Distress, Confused, Chronically Ill - Head Exam Head Exam: ATRAUMATIC, NORMAL INSPECTION - Eye Exam Eye Exam: EOMI, Normal appearance - Respiratory Exam Respiratory Exam: Clear to Ausculation Bilateral, NORMAL BREATHING PATTERN - Cardiovascular Exam Cardiovascular Exam: Tachycardia, Irregular Rhythm - GI/Abdominal Exam GI & Abdominal Exam: Soft. absent: Tenderness - Extremities Exam Extremities Exam: Normal Inspection. absent: Tenderness - Neurological Exam Neurological Exam: Altered, Motor Sensory Deficit - Skin Skin Exam: Dry, Warm Assessment and Plan (1) Acute on chronic renal failure Status: Resolved (2) CAD (coronary artery disease) Status: Chronic (3) CHF exacerbation Status: Chronic (4) Type 2 diabetes mellitus with diabetic nephropathy Status: Acute (5) Cardiorenal disease Status: Acute (6) ESRD (end stage renal disease) Status: Acute - Assessment and Plan (Free Text) Plan: Replete K dialysis MWF monitor BP- continue midodrine GT feeds on hold due to diarrhea
--- NOTE | 2017-10-20 08:18 | CP.PCM.PN ---
Subjective - Date & Time of Evaluation Date of Evaluation: 10/20/17 Time of Evaluation: 07:00 - Subjective Subjective: SURGERY PROGRESS NOTE FOR DR. MUÑOZ Patient seen and examined at bedside in the ICU. He is nonverbal but opens eyes to voice and follows commands. Patient has had multiple loose BMs overnight including a large loose brown Bm this morning. The nurses changed the sacral decub dressing after it was soiled and applied Santyl. Objective - Vital Signs/Intake and Output Vital Signs (last 24 hours): Temp Pulse Resp BP Pulse Ox 97.9 F 105 H 22 102/35 L 99 10/20/17 04:00 10/20/17 04:42 10/20/17 04:42 10/20/17 04:42 10/20/17 04:42 Intake and Output: 10/20/17 10/20/17 06:59 18:59 Intake Total 600 40 Output Total 0 0 Balance 600 40 - Medications Medications: Current Medications Albuterol/Ipratropium (Duoneb 3 Mg/0.5 Mg (3 Ml) Ud) 3 ml INH RQ4 [facility] Last Admin: 10/20/17 07:35 Dose: 3 ml Apixaban (Eliquis) 2.5 mg PO BID [facility] Last Admin: 10/19/17 18:26 Dose: 2.5 mg Ascorbic Acid (Vitamin C 500 Mg Tab) 500 mg PEG DAILY [facility] Aspirin (Aspirin Chewable) 81 mg PO DAILY [facility] Last Admin: 10/19/17 09:34 Dose: 81 mg Collagenase (Santyl) 1 gm TOP DAILY [facility] Last Admin: 10/19/17 18:48 Dose: 1 applic Epoetin Chencho (Procrit) 10,000 unit IV MWF [facility] Last Admin: 10/19/17 16:42 Dose: 10,000 unit Famotidine (Pepcid) 20 mg PO DAILY [facility] Last Admin: 10/19/17 09:31 Dose: 20 mg Heparin Sodium (Porcine) (Heparin) 3,700 units IVP MWF [facility] Last Admin: 10/19/17 17:35 Dose: 3,700 units Cefepime HCl 1 gm/ Dextrose 50 mls @ 100 mls/hr IVPB Q24H [facility] Last Admin: 10/19/17 08:04 Dose: 100 mls/hr Fluconazole (Diflucan Iv 100 Mg/50 Ml Ns) 50 mls @ 100 mls/hr IVPB Q24H [facility] Last Admin: 10/19/17 18:24 Dose: 100 mls/hr Insulin Detemir (Levemir) 8 unit SC AMHS [facility] Last Admin: 10/19/17 21:15 Dose: 8 unit Insulin Human Regular (Novolin R) 5 unit SC AC [facility] Last Admin: 10/19/17 16:55 Dose: 5 unit Insulin Human Regular (Novolin R) 0 unit SC ACHS [facility] PRN Reason: Protocol Last Admin: 10/19/17 21:16 Dose: Not Given Metronidazole (Flagyl) 500 mg GT Q8 [facility] Last Admin: 10/20/17 06:49 Dose: 500 mg Midodrine (Proamatine) 5 mg PO TID [facility] Last Admin: 10/19/17 18:25 Dose: 5 mg Multivitamins/Vitamin C (Multi-Delyn Liquid) 5 ml PEG DAILY [facility] Potassium Chloride (Potassium Chloride Oral Soln) 40 meq PEG ONCE [facility] Rosuvastatin Calcium (Crestor) 10 mg PO HS [facility] Last Admin: 10/19/17 21:15 Dose: 10 mg Saccharomyces Boulardii (Florastor) 250 mg PO BID [facility] Last Admin: 10/19/17 18:04 Dose: 250 mg - Labs Labs: 10/20/17 06:16 10/20/17 06:16 PT 13.4 SECONDS (9.7-12.2) H 10/14/17 16:30 INR 1.2 10/14/17 16:30 APTT 28 SECONDS (21-34) 10/14/17 16:30 - Constitutional Appears: Chronically Ill - Eye Exam Eye Exam: EOMI, Normal appearance - Respiratory Exam Respiratory Exam: NORMAL BREATHING PATTERN (trach collar). absent: Respiratory Distress - Cardiovascular Exam Cardiovascular Exam: Tachycardia (mild), +S1, +S2 - GI/Abdominal Exam Additional comments: PEG tube with tube feeds - Back Exam Additional comments: large sacral decubitus ulcer ~[id number] Assessment and Plan - Assessment and Plan (Free Text) Assessment: 77yo M with sacral decubitus ulcer - Leukocytosis decreased to 19.2 from 22.6 - On Abx per ID - No surgical intervention at this time - Daily dressing changes, can apply Santyl - Wound care consult - Discussed plan with Dr. Andrei Hahn PGY-3
[2017-10-20] MEDS ORDERED: Potassium Chloride 20 mEq/15 ml LIQ UD PEG ONE (09:15)
[2017-10-20 09:22] LABS: EOSINOPHIL 2 % (0-4); NEUTROPHIL 84 % (50-75); TOTAL CELLS COUNTED 100
[2017-10-20 09:24] LABS: LARGE PLATELETS PRESENT
[2017-10-20] MEDS: Multiple Vitamins Oral Solution PEG SCH (10:09)
[2017-10-20] MEDS: Saccharomyces Boulardi 250 mg Cap PO SCH ×2 (10:14→17:09)
[2017-10-20] MEDS: Insulin Detemir 100 units/ml Vial (Levemir) SC SCH ×2 (10:14→22:00)
[2017-10-20] MEDS: Collagenase 250 Units/gm Ointment(30 gm) TOP SCH (10:27)
[2017-10-20] MEDS: (Novolin R) Insulin Human Regular 100 units/ml vial SC SCH ×2 (10:48)
[2017-10-20] MEDS: (Novolog) Insulin Aspart, Recombinant 100 u/ml 10 ml vial SC SCH ×2 (12:05→18:28)
[2017-10-20 15:17] LABS: FECAL LEUKOCYTES NEGATIVE (NEGATIVE)
--- NOTE | 2017-10-20 16:36 | RAD ---
HISTORY: intubated COMPARISON: Comparison is made to the previous study dated 10/19/2017 FINDINGS: LUNGS: No significant interval change in the lungs noted since the previous exam. PLEURA: Blunting of the right costophrenic angle and possible trace fluid at the right fissure are again noted. CARDIOVASCULAR: The cardiac silhouette is mildly enlarged. Single wire left-sided pacemaker/ AICD is again seen in place. OSSEOUS STRUCTURES: No significant abnormalities. VISUALIZED UPPER ABDOMEN: Normal. OTHER FINDINGS: Right-sided hemodialysis catheter is again seen in place IMPRESSION: Overall no significant interval change. The tracheostomy tube is noted at appropriate position.
[2017-10-20 17:54] LABS: C DIFF TOXIN A B NEGATIVE (NEGATIVE)
[2017-10-20] MEDS: Fluconazole IV 100mg/50 ml NS 50 ML IVPB SCH (18:28)
--- NOTE | 2017-10-20 23:46 | CP.PCM.PN ---
Subjective - Date & Time of Evaluation Date of Evaluation: 10/20/17 Time of Evaluation: 11:10 - Subjective Subjective: Patient seen and evaluated No cardiac events noted Objective - Vital Signs/Intake and Output Vital Signs (last 24 hours): Temp Pulse Resp BP Pulse Ox 97.8 F 100 H 26 H 111/66 100 10/20/17 20:00 10/20/17 23:00 10/20/17 23:00 10/20/17 23:00 10/20/17 23:00 Intake and Output: 10/20/17 10/21/17 18:59 06:59 Intake Total 700 240 Output Total 100 Balance 600 240 - Medications Medications: Current Medications Albuterol/Ipratropium (Duoneb 3 Mg/0.5 Mg (3 Ml) Ud) 3 ml INH RQ4 [facility] Last Admin: 10/20/17 19:11 Dose: 3 ml Apixaban (Eliquis) 2.5 mg PO BID [facility] Last Admin: 10/20/17 17:09 Dose: 2.5 mg Ascorbic Acid (Vitamin C 500 Mg Tab) 500 mg PEG DAILY [facility] Last Admin: 10/20/17 10:09 Dose: 500 mg Aspirin (Aspirin Chewable) 81 mg PO DAILY [facility] Last Admin: 10/20/17 10:18 Dose: 81 mg Calcitriol (Rocaltrol) 0.25 mcg PEG DAILY [facility] Last Admin: 10/20/17 10:09 Dose: 0.25 mcg Collagenase (Santyl) 1 gm TOP DAILY [facility] Last Admin: 10/20/17 10:27 Dose: 1 applic Epoetin Chencho (Procrit) 10,000 unit IV MWF [facility] Last Admin: 10/19/17 16:42 Dose: 10,000 unit Famotidine (Pepcid) 20 mg PO DAILY [facility] Last Admin: 10/20/17 10:09 Dose: 20 mg Cefepime HCl 1 gm/ Dextrose 50 mls @ 100 mls/hr IVPB Q24H [facility] Last Admin: 10/20/17 08:40 Dose: 100 mls/hr Fluconazole (Diflucan Iv 100 Mg/50 Ml Ns) 50 mls @ 100 mls/hr IVPB Q24H [facility] Last Admin: 10/20/17 18:28 Dose: 100 mls/hr Insulin Aspart (Novolog) 0 unit SC Q6 [facility] PRN Reason: Protocol Last Admin: 10/20/17 18:28 Dose: 2 unit Insulin Detemir (Levemir) 8 unit SC AMHS [facility] Last Admin: 10/20/17 22:00 Dose: 8 unit Metoprolol Tartrate (Lopressor) 12.5 mg PEG BIDBS [facility] Last Admin: 10/20/17 17:09 Dose: 12.5 mg Metronidazole (Flagyl) 500 mg GT Q8 [facility] Last Admin: 10/20/17 22:28 Dose: 500 mg Midodrine (Proamatine) 5 mg PO TID [facility] Last Admin: 10/20/17 17:09 Dose: 5 mg Multivitamins/Vitamin C (Multi-Delyn Liquid) 5 ml PEG DAILY [facility] Last Admin: 10/20/17 10:09 Dose: 5 ml Rosuvastatin Calcium (Crestor) 10 mg PO HS [facility] Last Admin: 10/20/17 22:25 Dose: 10 mg Saccharomyces Boulardii (Florastor) 250 mg PO BID [facility] Last Admin: 10/20/17 17:09 Dose: 250 mg - Labs Labs: 10/20/17 06:16 10/20/17 06:16 PT 13.4 SECONDS (9.7-12.2) H 10/14/17 16:30 INR 1.2 10/14/17 16:30 APTT 28 SECONDS (21-34) 10/14/17 16:30
--- NOTE | 2017-10-20 23:59 | CP.PCM.PN ---
Subjective - Date & Time of Evaluation Date of Evaluation: 10/17/17 Time of Evaluation: 07:40 - Subjective Subjective: Patient seen and evaluated Respiratory insufficiency No cardiac events noted Objective - Vital Signs/Intake and Output Vital Signs (last 24 hours): Temp Pulse Resp BP Pulse Ox 97.8 F 100 H 26 H 111/66 100 10/20/17 20:00 10/20/17 23:00 10/20/17 23:00 10/20/17 23:00 10/20/17 23:00 Intake and Output: 10/20/17 10/21/17 18:59 06:59 Intake Total 700 240 Output Total 100 Balance 600 240 - Medications Medications: Current Medications Albuterol/Ipratropium (Duoneb 3 Mg/0.5 Mg (3 Ml) Ud) 3 ml INH RQ4 [facility] Last Admin: 10/20/17 19:11 Dose: 3 ml Apixaban (Eliquis) 2.5 mg PO BID [facility] Last Admin: 10/20/17 17:09 Dose: 2.5 mg Ascorbic Acid (Vitamin C 500 Mg Tab) 500 mg PEG DAILY [facility] Last Admin: 10/20/17 10:09 Dose: 500 mg Aspirin (Aspirin Chewable) 81 mg PO DAILY [facility] Last Admin: 10/20/17 10:18 Dose: 81 mg Calcitriol (Rocaltrol) 0.25 mcg PEG DAILY [facility] Last Admin: 10/20/17 10:09 Dose: 0.25 mcg Collagenase (Santyl) 1 gm TOP DAILY [facility] Last Admin: 10/20/17 10:27 Dose: 1 applic Epoetin Chencho (Procrit) 10,000 unit IV MWF [facility] Last Admin: 10/19/17 16:42 Dose: 10,000 unit Famotidine (Pepcid) 20 mg PO DAILY [facility] Last Admin: 10/20/17 10:09 Dose: 20 mg Cefepime HCl 1 gm/ Dextrose 50 mls @ 100 mls/hr IVPB Q24H [facility] Last Admin: 10/20/17 08:40 Dose: 100 mls/hr Fluconazole (Diflucan Iv 100 Mg/50 Ml Ns) 50 mls @ 100 mls/hr IVPB Q24H [facility] Last Admin: 10/20/17 18:28 Dose: 100 mls/hr Insulin Aspart (Novolog) 0 unit SC Q6 [facility] PRN Reason: Protocol Last Admin: 10/20/17 18:28 Dose: 2 unit Insulin Detemir (Levemir) 8 unit SC AMHS [facility] Last Admin: 10/20/17 22:00 Dose: 8 unit Metoprolol Tartrate (Lopressor) 12.5 mg PEG BIDBS [facility] Last Admin: 10/20/17 17:09 Dose: 12.5 mg Metronidazole (Flagyl) 500 mg GT Q8 [facility] Last Admin: 10/20/17 22:28 Dose: 500 mg Midodrine (Proamatine) 5 mg PO TID [facility] Last Admin: 10/20/17 17:09 Dose: 5 mg Multivitamins/Vitamin C (Multi-Delyn Liquid) 5 ml PEG DAILY [facility] Last Admin: 10/20/17 10:09 Dose: 5 ml Rosuvastatin Calcium (Crestor) 10 mg PO HS [facility] Last Admin: 10/20/17 22:25 Dose: 10 mg Saccharomyces Boulardii (Florastor) 250 mg PO BID [facility] Last Admin: 10/20/17 17:09 Dose: 250 mg - Labs Labs: 10/20/17 06:16 10/20/17 06:16 PT 13.4 SECONDS (9.7-12.2) H 10/14/17 16:30 INR 1.2 10/14/17 16:30 APTT 28 SECONDS (21-34) 10/14/17 16:30
--- NOTE | 2017-10-21 | CP.PCM.PN ---
Subjective - Date & Time of Evaluation Date of Evaluation: 10/18/17 Time of Evaluation: 08:30 - Subjective Subjective: Patient seen and evaluated No cardiac events noted Objective - Vital Signs/Intake and Output Vital Signs (last 24 hours): Temp Pulse Resp BP Pulse Ox 97.8 F 100 H 26 H 111/66 100 10/20/17 20:00 10/20/17 23:00 10/20/17 23:00 10/20/17 23:00 10/20/17 23:00 Intake and Output: 10/20/17 10/21/17 18:59 06:59 Intake Total 700 240 Output Total 100 Balance 600 240 - Medications Medications: Current Medications Albuterol/Ipratropium (Duoneb 3 Mg/0.5 Mg (3 Ml) Ud) 3 ml INH RQ4 [facility] Last Admin: 10/20/17 19:11 Dose: 3 ml Apixaban (Eliquis) 2.5 mg PO BID [facility] Last Admin: 10/20/17 17:09 Dose: 2.5 mg Ascorbic Acid (Vitamin C 500 Mg Tab) 500 mg PEG DAILY [facility] Last Admin: 10/20/17 10:09 Dose: 500 mg Aspirin (Aspirin Chewable) 81 mg PO DAILY [facility] Last Admin: 10/20/17 10:18 Dose: 81 mg Calcitriol (Rocaltrol) 0.25 mcg PEG DAILY [facility] Last Admin: 10/20/17 10:09 Dose: 0.25 mcg Collagenase (Santyl) 1 gm TOP DAILY [facility] Last Admin: 10/20/17 10:27 Dose: 1 applic Epoetin Chencho (Procrit) 10,000 unit IV MWF [facility] Last Admin: 10/19/17 16:42 Dose: 10,000 unit Famotidine (Pepcid) 20 mg PO DAILY [facility] Last Admin: 10/20/17 10:09 Dose: 20 mg Cefepime HCl 1 gm/ Dextrose 50 mls @ 100 mls/hr IVPB Q24H [facility] Last Admin: 10/20/17 08:40 Dose: 100 mls/hr Fluconazole (Diflucan Iv 100 Mg/50 Ml Ns) 50 mls @ 100 mls/hr IVPB Q24H [facility] Last Admin: 10/20/17 18:28 Dose: 100 mls/hr Insulin Aspart (Novolog) 0 unit SC Q6 [facility] PRN Reason: Protocol Last Admin: 10/20/17 18:28 Dose: 2 unit Insulin Detemir (Levemir) 8 unit SC AMHS [facility] Last Admin: 10/20/17 22:00 Dose: 8 unit Metoprolol Tartrate (Lopressor) 12.5 mg PEG BIDBS [facility] Last Admin: 10/20/17 17:09 Dose: 12.5 mg Metronidazole (Flagyl) 500 mg GT Q8 [facility] Last Admin: 10/20/17 22:28 Dose: 500 mg Midodrine (Proamatine) 5 mg PO TID [facility] Last Admin: 10/20/17 17:09 Dose: 5 mg Multivitamins/Vitamin C (Multi-Delyn Liquid) 5 ml PEG DAILY [facility] Last Admin: 10/20/17 10:09 Dose: 5 ml Rosuvastatin Calcium (Crestor) 10 mg PO HS [facility] Last Admin: 10/20/17 22:25 Dose: 10 mg Saccharomyces Boulardii (Florastor) 250 mg PO BID [facility] Last Admin: 10/20/17 17:09 Dose: 250 mg - Labs Labs: 10/20/17 06:16 10/20/17 06:16 PT 13.4 SECONDS (9.7-12.2) H 10/14/17 16:30 INR 1.2 10/14/17 16:30 APTT 28 SECONDS (21-34) 10/14/17 16:30
--- NOTE | 2017-10-21 00:01 | CP.PCM.PN ---
Subjective - Date & Time of Evaluation Date of Evaluation: 10/19/17 Time of Evaluation: 10:30 - Subjective Subjective: Patient seen and evaluated Respiratory insufficiency No cardiac events noted Objective - Vital Signs/Intake and Output Vital Signs (last 24 hours): Temp Pulse Resp BP Pulse Ox 97.8 F 100 H 26 H 111/66 100 10/20/17 20:00 10/20/17 23:00 10/20/17 23:00 10/20/17 23:00 10/20/17 23:00 Intake and Output: 10/20/17 10/21/17 18:59 06:59 Intake Total 700 240 Output Total 100 Balance 600 240 - Medications Medications: Current Medications Albuterol/Ipratropium (Duoneb 3 Mg/0.5 Mg (3 Ml) Ud) 3 ml INH RQ4 [facility] Last Admin: 10/20/17 19:11 Dose: 3 ml Apixaban (Eliquis) 2.5 mg PO BID [facility] Last Admin: 10/20/17 17:09 Dose: 2.5 mg Ascorbic Acid (Vitamin C 500 Mg Tab) 500 mg PEG DAILY [facility] Last Admin: 10/20/17 10:09 Dose: 500 mg Aspirin (Aspirin Chewable) 81 mg PO DAILY [facility] Last Admin: 10/20/17 10:18 Dose: 81 mg Calcitriol (Rocaltrol) 0.25 mcg PEG DAILY [facility] Last Admin: 10/20/17 10:09 Dose: 0.25 mcg Collagenase (Santyl) 1 gm TOP DAILY [facility] Last Admin: 10/20/17 10:27 Dose: 1 applic Epoetin Chencho (Procrit) 10,000 unit IV MWF [facility] Last Admin: 10/19/17 16:42 Dose: 10,000 unit Famotidine (Pepcid) 20 mg PO DAILY [facility] Last Admin: 10/20/17 10:09 Dose: 20 mg Cefepime HCl 1 gm/ Dextrose 50 mls @ 100 mls/hr IVPB Q24H [facility] Last Admin: 10/20/17 08:40 Dose: 100 mls/hr Fluconazole (Diflucan Iv 100 Mg/50 Ml Ns) 50 mls @ 100 mls/hr IVPB Q24H [facility] Last Admin: 10/20/17 18:28 Dose: 100 mls/hr Insulin Aspart (Novolog) 0 unit SC Q6 [facility] PRN Reason: Protocol Last Admin: 10/20/17 18:28 Dose: 2 unit Insulin Detemir (Levemir) 8 unit SC AMHS [facility] Last Admin: 10/20/17 22:00 Dose: 8 unit Metoprolol Tartrate (Lopressor) 12.5 mg PEG BIDBS [facility] Last Admin: 10/20/17 17:09 Dose: 12.5 mg Metronidazole (Flagyl) 500 mg GT Q8 [facility] Last Admin: 10/20/17 22:28 Dose: 500 mg Midodrine (Proamatine) 5 mg PO TID [facility] Last Admin: 10/20/17 17:09 Dose: 5 mg Multivitamins/Vitamin C (Multi-Delyn Liquid) 5 ml PEG DAILY [facility] Last Admin: 10/20/17 10:09 Dose: 5 ml Rosuvastatin Calcium (Crestor) 10 mg PO HS [facility] Last Admin: 10/20/17 22:25 Dose: 10 mg Saccharomyces Boulardii (Florastor) 250 mg PO BID [facility] Last Admin: 10/20/17 17:09 Dose: 250 mg - Labs Labs: 10/20/17 06:16 10/20/17 06:16 PT 13.4 SECONDS (9.7-12.2) H 10/14/17 16:30 INR 1.2 10/14/17 16:30 APTT 28 SECONDS (21-34) 10/14/17 16:30
[2017-10-21] MEDS: Albuterol-Ipratrop 3 mg / 0.5 (3 ml) UD INH SCH ×6 (00:23→19:19)
[2017-10-21 06:45] LABS: BASO # 0.1 K/uL (0.0-0.2); BASO % 0.3 % (0.0-2.0); EOS # 0.2 K/uL (0.0-0.7); EOS % 0.9 % (0.0-4.0); HEMATOCRIT 25.1 % (35.0-51.0); LYMPH # 1.7 K/uL (1.0-4.3); MEAN CELL VOLUME 86.4 fL (80.0-94.0); MEAN CORPUSCULAR HEMOGLOBIN 27.2 pg (27.0-31.0); MEAN CORPUSCULAR HGB CONC 31.4 g/dL (33.0-37.0); MEAN PLATELET VOLUME 7.9 fL (7.2-11.7); MONO # 0.9 K/uL (0.0-0.8); MONO % 4.5 % (0.0-10.0); NRBC % 0.2 % (0.0-2.0); PLATELET COUNT 581 K/uL (130-400); RED CELL DISTRIBUTION WIDTH 27.4 % (11.5-14.5); WHITE BLOOD COUNT 19.4 K/uL (4.8-10.8)
[2017-10-21] MEDS: (Novolog) Insulin Aspart, Recombinant 100 u/ml 10 ml vial SC SCH ×5 (06:49→23:19)
[2017-10-21 07:13] LABS: ALB/GLOB RATIO 0.8 (1.0-2.1); BILIRUBIN,TOTAL 0.5 mg/dL (0.2-1.3); CALCIUM 7.6 mg/dl (8.6-10.4); POTASSIUM 3.7 mmol/L (3.6-5.2); TOTAL PROTEIN 6.7 g/dL (6.3-8.3)
[2017-10-21 08:28] LABS: EOSINOPHIL 1 % (0-4); LARGE PLATELETS PRESENT; NEUTROPHIL 83 % (50-75); TOTAL CELLS COUNTED 100
--- NOTE | 2017-10-21 09:14 | CP.PCM.PN ---
Subjective - Date & Time of Evaluation Date of Evaluation: 10/21/17 Time of Evaluation: 09:01 - Subjective Subjective: More alert now BP better but tachycardic- 130s, RR Remains on metoprolol For dialysis today- will UF minimal Cannot obtain further ROS Objective - Vital Signs/Intake and Output Vital Signs (last 24 hours): Temp Pulse Resp BP Pulse Ox 97.5 F L 120 H 32 H 94/41 L 100 10/21/17 00:00 10/21/17 08:50 10/21/17 08:50 10/21/17 08:50 10/21/17 08:50 Intake and Output: 10/21/17 10/21/17 06:59 18:59 Intake Total 520 40 Output Total 0 100 Balance 520 -60 - Medications Medications: Current Medications Albuterol/Ipratropium (Duoneb 3 Mg/0.5 Mg (3 Ml) Ud) 3 ml INH RQ4 [facility] Last Admin: 10/21/17 07:40 Dose: 3 ml Apixaban (Eliquis) 2.5 mg PO BID [facility] Last Admin: 10/20/17 17:09 Dose: 2.5 mg Ascorbic Acid (Vitamin C 500 Mg Tab) 500 mg PEG DAILY [facility] Last Admin: 10/20/17 10:09 Dose: 500 mg Aspirin (Aspirin Chewable) 81 mg PO DAILY [facility] Last Admin: 10/20/17 10:18 Dose: 81 mg Calcitriol (Rocaltrol) 0.25 mcg PEG DAILY [facility] Last Admin: 10/20/17 10:09 Dose: 0.25 mcg Collagenase (Santyl) 1 gm TOP DAILY [facility] Last Admin: 10/20/17 10:27 Dose: 1 applic Epoetin Chencho (Procrit) 10,000 unit IV MWF [facility] Last Admin: 10/19/17 16:42 Dose: 10,000 unit Famotidine (Pepcid) 20 mg PO DAILY [facility] Last Admin: 10/20/17 10:09 Dose: 20 mg Cefepime HCl 1 gm/ Dextrose 50 mls @ 100 mls/hr IVPB Q24H [facility] Last Admin: 10/21/17 08:19 Dose: 100 mls/hr Fluconazole (Diflucan Iv 100 Mg/50 Ml Ns) 50 mls @ 100 mls/hr IVPB Q24H [facility] Last Admin: 10/20/17 18:28 Dose: 100 mls/hr Insulin Aspart (Novolog) 0 unit SC Q6 [facility] PRN Reason: Protocol Last Admin: 10/21/17 06:49 Dose: 3 unit Insulin Detemir (Levemir) 8 unit SC AMHS [facility] Last Admin: 10/20/17 22:00 Dose: 8 unit Metoprolol Tartrate (Lopressor) 12.5 mg PEG BIDBS [facility] Last Admin: 10/21/17 08:19 Dose: 12.5 mg Metronidazole (Flagyl) 500 mg GT Q8 [facility] Last Admin: 10/21/17 06:48 Dose: 500 mg Midodrine (Proamatine) 5 mg PO TID [facility] Last Admin: 10/20/17 17:09 Dose: 5 mg Multivitamins/Vitamin C (Multi-Delyn Liquid) 5 ml PEG DAILY [facility] Last Admin: 10/20/17 10:09 Dose: 5 ml Rosuvastatin Calcium (Crestor) 10 mg PO HS [facility] Last Admin: 10/20/17 22:25 Dose: 10 mg Saccharomyces Boulardii (Florastor) 250 mg PO BID [facility] Last Admin: 10/20/17 17:09 Dose: 250 mg - Labs Labs: 10/21/17 06:36 10/21/17 06:36 PT 13.4 SECONDS (9.7-12.2) H 10/14/17 16:30 INR 1.2 10/14/17 16:30 APTT 28 SECONDS (21-34) 10/14/17 16:30 - Constitutional Appears: No Acute Distress, Chronically Ill - Head Exam Head Exam: ATRAUMATIC, NORMAL INSPECTION - Eye Exam Eye Exam: EOMI, Normal appearance - Neck Exam Neck Exam: Normal Inspection. absent: Tenderness - Respiratory Exam Respiratory Exam: Rhonchi, NORMAL BREATHING PATTERN - Cardiovascular Exam Cardiovascular Exam: Tachycardia, +S1 - GI/Abdominal Exam GI & Abdominal Exam: Soft. absent: Tenderness - Extremities Exam Extremities Exam: Normal Inspection. absent: Tenderness - Neurological Exam Neurological Exam: Altered, Motor Sensory Deficit - Skin Skin Exam: Dry, Warm Assessment and Plan (1) Acute on chronic renal failure Status: Resolved (2) CAD (coronary artery disease) Status: Chronic (3) CHF exacerbation Status: Chronic (4) Type 2 diabetes mellitus with diabetic nephropathy Status: Acute (5) Cardiorenal disease Status: Acute (6) ESRD (end stage renal disease) Status: Acute - Assessment and Plan (Free Text) Plan: Dialysis today- minimal UF monitor HR- on beta blockers
[2017-10-21] MEDS ORDERED: Digoxin 250 mcg (0.25 mg) Tab PO ONE (09:15)
[2017-10-21] MEDS: Collagenase 250 Units/gm Ointment(30 gm) TOP SCH (09:25)
[2017-10-21] MEDS: Saccharomyces Boulardi 250 mg Cap PO SCH ×2 (09:30→17:53)
[2017-10-21] MEDS: Insulin Detemir 100 units/ml Vial (Levemir) SC SCH ×2 (10:00→22:00)
--- NOTE | 2017-10-21 10:37 | CP.PCM.PN ---
Subjective - Date & Time of Evaluation Date of Evaluation: 10/21/17 Time of Evaluation: 07:00 - Subjective Subjective: General Surgery Note for Dr. Forbes Patient seen and examined at bedside. No acute event overnight. Patient is nonverbal and only responds to few commands. ROS unobtainable. Objective - Vital Signs/Intake and Output Vital Signs (last 24 hours): Temp Pulse Resp BP Pulse Ox 98.1 F 120 H 32 H 94/41 L 100 10/21/17 08:00 10/21/17 08:50 10/21/17 08:50 10/21/17 08:50 10/21/17 08:50 Intake and Output: 10/21/17 10/21/17 06:59 18:59 Intake Total 520 135 Output Total 0 100 Balance 520 35 - Medications Medications: Current Medications Albuterol/Ipratropium (Duoneb 3 Mg/0.5 Mg (3 Ml) Ud) 3 ml INH RQ4 [facility] Last Admin: 10/21/17 07:40 Dose: 3 ml Apixaban (Eliquis) 2.5 mg PO BID [facility] Last Admin: 10/21/17 09:23 Dose: 2.5 mg Ascorbic Acid (Vitamin C 500 Mg Tab) 500 mg PEG DAILY [facility] Last Admin: 10/21/17 09:25 Dose: 500 mg Aspirin (Aspirin Chewable) 81 mg PO DAILY [facility] Last Admin: 10/20/17 10:18 Dose: 81 mg Calcitriol (Rocaltrol) 0.25 mcg PEG DAILY [facility] Last Admin: 10/21/17 09:25 Dose: 0.25 mcg Collagenase (Santyl) 1 gm TOP DAILY [facility] Last Admin: 10/20/17 10:27 Dose: 1 applic Epoetin Chencho (Procrit) 10,000 unit IV MWF [facility] Last Admin: 10/19/17 16:42 Dose: 10,000 unit Famotidine (Pepcid) 20 mg PO DAILY [facility] Last Admin: 10/21/17 09:23 Dose: 20 mg Cefepime HCl 1 gm/ Dextrose 50 mls @ 100 mls/hr IVPB Q24H [facility] Last Admin: 10/21/17 08:19 Dose: 100 mls/hr Fluconazole (Diflucan Iv 100 Mg/50 Ml Ns) 50 mls @ 100 mls/hr IVPB Q24H [facility] Last Admin: 10/20/17 18:28 Dose: 100 mls/hr Insulin Aspart (Novolog) 0 unit SC Q6 [facility] PRN Reason: Protocol Last Admin: 10/21/17 06:49 Dose: 3 unit Insulin Detemir (Levemir) 8 unit SC AMHS [facility] Last Admin: 10/20/17 22:00 Dose: 8 unit Metoprolol Tartrate (Lopressor) 12.5 mg PEG BIDBS [facility] Last Admin: 10/21/17 08:19 Dose: 12.5 mg Metronidazole (Flagyl) 500 mg GT Q8 [facility] Last Admin: 10/21/17 06:48 Dose: 500 mg Midodrine (Proamatine) 5 mg PO TID [facility] Last Admin: 10/21/17 09:24 Dose: 5 mg Multivitamins/Vitamin C (Multi-Delyn Liquid) 5 ml PEG DAILY [facility] Last Admin: 10/20/17 10:09 Dose: 5 ml Rosuvastatin Calcium (Crestor) 10 mg PO HS [facility] Last Admin: 10/20/17 22:25 Dose: 10 mg Saccharomyces Boulardii (Florastor) 250 mg PO BID [facility] Last Admin: 10/20/17 17:09 Dose: 250 mg - Labs Labs: 10/21/17 06:36 10/21/17 06:36 PT 13.4 SECONDS (9.7-12.2) H 10/14/17 16:30 INR 1.2 10/14/17 16:30 APTT 28 SECONDS (21-34) 10/14/17 16:30 - Constitutional Appears: No Acute Distress - ENT Exam Additional comments: tracheostomy - Respiratory Exam Respiratory Exam: NORMAL BREATHING PATTERN - Cardiovascular Exam Cardiovascular Exam: REGULAR RHYTHM - GI/Abdominal Exam GI & Abdominal Exam: Soft. absent: Tenderness Additional comments: peg tube in place - Back Exam Additional comments: sacral wound dressing with optiform - Neurological Exam Neurological Exam: Awake - Psychiatric Exam Psychiatric exam: Flat Affect - Skin Skin Exam: Dry, Warm Assessment and Plan - Assessment and Plan (Free Text) Plan: 77 M with sacral decubitus ulcer - Continue IV abx - Daily dressing changes, apply Santyl - Wound care - No surgical intervention at this time - Discussed plan with Dr. Andrei Moe PGY1
[2017-10-21] MEDS: Multiple Vitamins Oral Solution PEG SCH (10:55)
--- NOTE | 2017-10-21 12:13 | RAD ---
HISTORY: intubated COMPARISON: No prior. FINDINGS: In situ tracheostomy tube in good position. No change right subclavian dialysis catheter with tips in the SVC/RA junction. LUNGS: Previously noted hazy opacity right mid to lower lung field which may have represented some combination of atelectasis and small amount of fluid in the fissure slightly improved. . The left CP angle is poorly delineated possibly due to some atelectasis and small effusion. PLEURA: No significant pleural effusion identified, no pneumothorax apparent. CARDIOVASCULAR: Re- demonstrated is single lead pacemaker/ defibrillator. Heart remains enlarged unchanged. OSSEOUS STRUCTURES: No significant abnormalities. VISUALIZED UPPER ABDOMEN: Normal. OTHER FINDINGS: None. IMPRESSION: Tracheostomy tube, right subclavian dialysis catheter and pacemaker are unchanged. Previously noted hazy opacity right mid to lower lung field which may have represented some combination of atelectasis and small amount of fluid in the fissure slightly improved. . The left CP angle is poorly delineated possibly due to some atelectasis and small effusion
[2017-10-21] MEDS: Epoetin Alfa 10,000 unit/ml Dialysis IV SCH (12:45)
--- NOTE | 2017-10-21 13:13 | CP.CCUPN ---
<Cristiano Stanford - Last Filed: 10/21/17 12:58> CCU Subjective - Physician Review Subjective (Free Text): PGY1 ICU progress note for Dr. Barth Patient seen and examined at bedside this morning. No acute events overnight. Patient is resting comfortably, in no acute distress. Patient non-verbal, trach collar in place. ROS unattainable. CCU Objective - Vital Signs / Intake & Output Vital Signs (Last 4 hours): Vital Signs Temp Pulse Pulse Resp BP BP Pulse Ox 10/21/17 12:30 120 H 25 H 96/42 L 100 10/21/17 12:00 117 H 18 111/38 L 100 10/21/17 11:40 115 H 26 H 91/41 L 100 10/21/17 11:20 113 H 24 87/35 L 100 10/21/17 11:00 112 H 19 101/41 L 100 10/21/17 10:40 106 H 26 H 102/41 L 100 10/21/17 10:20 102 H 22 101/39 L 100 10/21/17 10:00 97.9 F 105 H 105 H 20 115/41 L 118/41 L 100 Intake and Output (Last 8hrs): Intake & Output 10/20/17 10/21/17 10/21/17 22:59 06:59 14:59 Intake Total 440 310 270 Output Total 100 0 100 Balance 340 310 170 Weight 156 lb 11.979 oz Intake: Intake, IV Amount 50 50 Right Proximal Port 50 50 Oral 40 Tube Feeding 220 310 180 Other 170 Output: Urine 0 0 0 Urine, Voided 0 0 0 Stool 100 100 - Physical Exam Head: Positive for: Atraumatic, Other (trach) Pupils: Positive for: Sluggish Extroacular Muscles: Positive for: EOMI Conjunctiva: Positive for: Normal Mouth: Positive for: Moist Mucous Membranes Pharnyx: Positive for: Normal Neck: Positive for: Other (trach collar in place) Respiratory/Chest: Positive for: Clear to Auscultation, Good Air Exchange ( Anteriorly ), Other (Tracheostomy ). Negative for: Respiratory Distress, Accessory Muscle Use Cardiovascular: Positive for: Regular Rate and Rhythm, Normal S1, S2 Abdomen: Positive for: Other ((+) peg). Negative for: Tenderness, Peritoneal Signs Upper Extremity: Positive for: NORMAL PULSES, Other (patient moving upper extremities). Negative for: Edema Lower Extremity: Negative for: Edema, CALF TENDERNESS, Swelling Neurological: Positive for: Other (alert and awake but does not respond to voice commands). Negative for: Speech Normal Skin: Positive for: Warm, Dry, Other (stage III/IV decubiti). Negative for: Diaphoretic Psychiatric: Positive for: Alert, Other (non-verbal, trach). Negative for: Oriented x 3 - Medications Active Medications: Active Medications Generic Name Dose Route Start Last Admin Trade Name Jose PRN Reason Stop Dose Admin Albuterol/Ipratropium 3 ml 10/19/17 12:00 10/21/17 12:52 Duoneb 3 Mg/0.5 Mg (3 Ml) Ud INH Not Given RQ4 LUIS FERNANDO Apixaban 2.5 mg 08/27/17 12:00 10/21/17 09:23 Eliquis PO 2.5 mg BID LUIS FERNANDO Administration Ascorbic Acid 500 mg 10/20/17 10:00 10/21/17 09:25 Vitamin C 500 Mg Tab PEG 500 mg DAILY LUIS FERNANDO Administration Aspirin 81 mg 10/19/17 10:00 10/21/17 10:30 Aspirin Chewable PO 81 mg DAILY LUIS FERNANDO Administration Calcitriol 0.25 mcg 10/20/17 10:00 10/21/17 09:25 Rocaltrol PEG 0.25 mcg DAILY LUIS FERNANDO Administration Collagenase 1 gm 10/19/17 18:15 10/21/17 09:25 Santyl TOP 1 applic DAILY LUIS FERNANDO Administration Epoetin Chencho 10,000 unit 10/05/17 11:45 10/21/17 12:45 Procrit IV 10,000 unit MWF LUIS FERNANDO Administration Famotidine 20 mg 08/09/17 10:00 10/21/17 09:23 Pepcid PO 20 mg DAILY LUIS FERNANDO Administration Cefepime HCl 1 gm/ Dextrose 50 mls @ 100 mls/hr 10/12/17 08:30 10/21/17 08:19 IVPB 100 mls/hr Q24H LUIS FERNANDO Administration Fluconazole 50 mls @ 100 mls/hr 10/14/17 19:00 10/20/17 18:28 Diflucan Iv 100 Mg/50 Ml Ns IVPB 100 mls/hr Q24H LUIS FERNANDO Administration Insulin Aspart 0 unit 10/20/17 12:00 10/21/17 12:08 Novolog SC 1 unit Q6 LUIS FERNANDO Administration Protocol Insulin Detemir 8 unit 10/12/17 22:00 10/20/17 22:00 Levemir SC 8 unit AMHS LUIS FERNANDO Administration Metoprolol Tartrate 12.5 mg 10/20/17 08:30 10/21/17 08:19 Lopressor PEG 12.5 mg BIDBS LUIS FERNANDO Administration Metronidazole 500 mg 10/16/17 14:00 10/21/17 06:48 Flagyl GT 500 mg Q8 LUIS FERNANDO Administration Midodrine 5 mg 10/17/17 14:00 10/21/17 09:24 Proamatine PO 5 mg TID LUIS FERNANDO Administration Multivitamins/Vitamin C 5 ml 10/20/17 10:00 10/21/17 10:55 Multi-Delyn Liquid PEG 5 ml DAILY LUIS FERNANDO Administration Rosuvastatin Calcium 10 mg 10/02/17 22:00 10/20/17 22:25 Crestor PO 10 mg HS LUIS FERNANDO Administration Saccharomyces Boulardii 250 mg 09/26/17 18:00 10/21/17 09:30 Florastor PO 250 mg BID LUIS FERNANDO Administration - Patient Studies Lab Studies: Microbiology Studies 09/07/17 04:00 Mycobacterial Culture - Final Other: Please Indicate 10/20/17 12:00 Ova and Parasite Concentrate Exam - Final Abdomen Lab Studies 10/21/17 10/21/17 10/21/17 Range/Units 11:34 06:36 06:36 WBC 19.4 H (4.8-10.8) K/uL RBC 2.90 L (4.40-5.90) Mil/uL Hgb 7.9 L (12.0-18.0) g/dL Hct 25.1 L (35.0-51.0) % MCV 86.4 (80.0-94.0) fL MCH 27.2 (27.0-31.0) pg MCHC 31.4 L (33.0-37.0) g/dL RDW 27.4 H (11.5-14.5) % Plt Count 581 H (130-400) K/uL MPV 7.9 (7.2-11.7) fL Neut % (Auto) 85.3 H (50.0-75.0) % Lymph % (Auto) 9.0 L (20.0-40.0) % Vance % (Auto) 4.5 (0.0-10.0) % Eos % (Auto) 0.9 (0.0-4.0) % Baso % (Auto) 0.3 (0.0-2.0) % Neut # 16.6 H (1.8-7.0) K/uL Lymph # 1.7 (1.0-4.3) K/uL Vance # 0.9 H (0.0-0.8) K/uL Eos # 0.2 (0.0-0.7) K/uL Baso # 0.1 (0.0-0.2) K/uL Neutrophils % (Manual) 83 H (50-75) % Band Neutrophils % 5 H (0-2) % Lymphocytes % (Manual) 9 L (20-40) % Monocytes % (Manual) 2 (0-10) % Eosinophils % (Manual) 1 (0-4) % Platelet Estimate Increased H (NORMAL) Large Platelets Present Hypochromasia (manual) Slight Anisocytosis (manual) Moderate Ovalocytes Slight Sodium 138 (132-148) mmol/L Potassium 3.7 (3.6-5.2) mmol/L Chloride 101 (98-107) mmol/L Carbon Dioxide 22 (22-30) mmol/L Anion Gap 19 (10-20) BUN 47 H (9-20) mg/dL Creatinine 3.7 H (0.8-1.5) mg/dL Est GFR ( Amer) 19 Est GFR (Non-Af Amer) 16 POC Glucose (mg/dL) 178 H (65-110) mg/dL Random Glucose 230 H (75-110) mg/dL Calcium 7.6 L (8.6-10.4) mg/dl Total Bilirubin 0.5 (0.2-1.3) mg/dL AST 36 (17-59) U/L ALT 55 (21-72) U/L Alkaline Phosphatase 111 (38-126) U/L Total Protein 6.7 (6.3-8.3) g/dL Albumin 2.9 L (3.5-5.0) g/dL Globulin 3.8 (2.2-3.9) gm/dL Albumin/Globulin Ratio 0.8 L (1.0-2.1) Stool Leukocytes, Qual (NEGATIVE) C. difficile Ag & Toxin (NEGATIVE) 10/21/17 10/21/17 10/20/17 Range/Units 06:35 00:49 18:11 WBC (4.8-10.8) K/uL RBC (4.40-5.90) Mil/uL Hgb (12.0-18.0) g/dL Hct (35.0-51.0) % MCV (80.0-94.0) fL MCH (27.0-31.0) pg MCHC (33.0-37.0) g/dL RDW (11.5-14.5) % Plt Count (130-400) K/uL MPV (7.2-11.7) fL Neut % (Auto) (50.0-75.0) % Lymph % (Auto) (20.0-40.0) % Vance % (Auto) (0.0-10.0) % Eos % (Auto) (0.0-4.0) % Baso % (Auto) (0.0-2.0) % Neut # (1.8-7.0) K/uL Lymph # (1.0-4.3) K/uL Vance # (0.0-0.8) K/uL Eos # (0.0-0.7) K/uL Baso # (0.0-0.2) K/uL Neutrophils % (Manual) (50-75) % Band Neutrophils % (0-2) % Lymphocytes % (Manual) (20-40) % Monocytes % (Manual) (0-10) % Eosinophils % (Manual) (0-4) % Platelet Estimate (NORMAL) Large Platelets Hypochromasia (manual) Anisocytosis (manual) Ovalocytes Sodium (132-148) mmol/L Potassium (3.6-5.2) mmol/L Chloride (98-107) mmol/L Carbon Dioxide (22-30) mmol/L Anion Gap (10-20) BUN (9-20) mg/dL Creatinine (0.8-1.5) mg/dL Est GFR ( Amer) Est GFR (Non-Af Amer) POC Glucose (mg/dL) 263 H 147 H 208 H (65-110) mg/dL Random Glucose (75-110) mg/dL Calcium (8.6-10.4) mg/dl Total Bilirubin (0.2-1.3) mg/dL AST (17-59) U/L ALT (21-72) U/L Alkaline Phosphatase (38-126) U/L Total Protein (6.3-8.3) g/dL Albumin (3.5-5.0) g/dL Globulin (2.2-3.9) gm/dL Albumin/Globulin Ratio (1.0-2.1) Stool Leukocytes, Qual (NEGATIVE) C. difficile Ag & Toxin (NEGATIVE) 10/20/17 Range/Units 12:00 WBC (4.8-10.8) K/uL RBC (4.40-5.90) Mil/uL Hgb (12.0-18.0) g/dL Hct (35.0-51.0) % MCV (80.0-94.0) fL MCH (27.0-31.0) pg MCHC (33.0-37.0) g/dL RDW (11.5-14.5) % Plt Count (130-400) K/uL MPV (7.2-11.7) fL Neut % (Auto) (50.0-75.0) % Lymph % (Auto) (20.0-40.0) % Vance % (Auto) (0.0-10.0) % Eos % (Auto) (0.0-4.0) % Baso % (Auto) (0.0-2.0) % Neut # (1.8-7.0) K/uL Lymph # (1.0-4.3) K/uL Vance # (0.0-0.8) K/uL Eos # (0.0-0.7) K/uL Baso # (0.0-0.2) K/uL Neutrophils % (Manual) (50-75) % Band Neutrophils % (0-2) % Lymphocytes % (Manual) (20-40) % Monocytes % (Manual) (0-10) % Eosinophils % (Manual) (0-4) % Platelet Estimate (NORMAL) Large Platelets Hypochromasia (manual) Anisocytosis (manual) Ovalocytes Sodium (132-148) mmol/L Potassium (3.6-5.2) mmol/L Chloride (98-107) mmol/L Carbon Dioxide (22-30) mmol/L Anion Gap (10-20) BUN (9-20) mg/dL Creatinine (0.8-1.5) mg/dL Est GFR ( Amer) Est GFR (Non-Af Amer) POC Glucose (mg/dL) (65-110) mg/dL Random Glucose (75-110) mg/dL Calcium (8.6-10.4) mg/dl Total Bilirubin (0.2-1.3) mg/dL AST (17-59) U/L ALT (21-72) U/L Alkaline Phosphatase (38-126) U/L Total Protein (6.3-8.3) g/dL Albumin (3.5-5.0) g/dL Globulin (2.2-3.9) gm/dL Albumin/Globulin Ratio (1.0-2.1) Stool Leukocytes, Qual Negative (NEGATIVE) C. difficile Ag & Toxin Negative (NEGATIVE) Laboratory Results - last 24 hr 10/20/17 10/20/17 10/21/17 12:00 18:11 00:49 WBC RBC Hgb Hct MCV MCH MCHC RDW Plt Count MPV Neut % (Auto) Lymph % (Auto) Vance % (Auto) Eos % (Auto) Baso % (Auto) Neut # Lymph # Vance # Eos # Baso # Neutrophils % (Manual) Band Neutrophils % Lymphocytes % (Manual) Monocytes % (Manual) Eosinophils % (Manual) Platelet Estimate Large Platelets Hypochromasia (manual) Anisocytosis (manual) Ovalocytes Sodium Potassium Chloride Carbon Dioxide Anion Gap BUN Creatinine Est GFR ( Amer) Est GFR (Non-Af Amer) POC Glucose (mg/dL) 208 H 147 H Random Glucose Calcium Total Bilirubin AST ALT Alkaline Phosphatase Total Protein Albumin Globulin Albumin/Globulin Ratio Stool Leukocytes, Qual Negative C. difficile Ag & Toxin Negative 10/21/17 10/21/17 10/21/17 06:35 06:36 06:36 WBC 19.4 H RBC 2.90 L Hgb 7.9 L Hct 25.1 L MCV 86.4 MCH 27.2 MCHC 31.4 L RDW 27.4 H Plt Count 581 H MPV 7.9 Neut % (Auto) 85.3 H Lymph % (Auto) 9.0 L Vance % (Auto) 4.5 Eos % (Auto) 0.9 Baso % (Auto) 0.3 Neut # 16.6 H Lymph # 1.7 Vance # 0.9 H Eos # 0.2 Baso # 0.1 Neutrophils % (Manual) 83 H Band Neutrophils % 5 H Lymphocytes % (Manual) 9 L Monocytes % (Manual) 2 Eosinophils % (Manual) 1 Platelet Estimate Increased H Large Platelets Present Hypochromasia (manual) Slight Anisocytosis (manual) Moderate Ovalocytes Slight Sodium 138 Potassium 3.7 Chloride 101 Carbon Dioxide 22 Anion Gap 19 BUN 47 H Creatinine 3.7 H Est GFR ( Amer) 19 Est GFR (Non-Af Amer) 16 POC Glucose (mg/dL) 263 H Random Glucose 230 H Calcium 7.6 L Total Bilirubin 0.5 AST 36 ALT 55 Alkaline Phosphatase 111 Total Protein 6.7 Albumin 2.9 L Globulin 3.8 Albumin/Globulin Ratio 0.8 L Stool Leukocytes, Qual C. difficile Ag & Toxin 10/21/17 11:34 WBC RBC Hgb Hct MCV MCH MCHC RDW Plt Count MPV Neut % (Auto) Lymph % (Auto) Vance % (Auto) Eos % (Auto) Baso % (Auto) Neut # Lymph # Vance # Eos # Baso # Neutrophils % (Manual) Band Neutrophils % Lymphocytes % (Manual) Monocytes % (Manual) Eosinophils % (Manual) Platelet Estimate Large Platelets Hypochromasia (manual) Anisocytosis (manual) Ovalocytes Sodium Potassium Chloride Carbon Dioxide Anion Gap BUN Creatinine Est GFR ( Amer) Est GFR (Non-Af Amer) POC Glucose (mg/dL) 178 H Random Glucose Calcium Total Bilirubin AST ALT Alkaline Phosphatase Total Protein Albumin Globulin Albumin/Globulin Ratio Stool Leukocytes, Qual C. difficile Ag & Toxin Fingerstick Blood Sugar Results: 178 Review of Systems - Review of Systems Systems not reviewed;Unavailable: Other (non-verbal) Critical Care Progress Note - Nutrition Nutrition: Nutrition Category Date Time Status NPO Diet [DIET] Diets 08/21/17 Dinner Active Assessment/Plan - Assessment and Plan (Free Text) Assessment: 77 year old male with PMHx CAD/CHF, ESRD and dysfunctional brain injury and prolonged hospital stay, recently transferred to ICU for hypotension and altered mental status Plan: Neuro: Alert, non-responsive Pulm: Management: * Tracheostomy CV: Hypotension s/p Cardica arrest (08/10/17), Hx of CAD with prior stent placement, HTN, 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 Miranda, help appreciated HD ([facility]) via perma cath Procrit 10,000 unit IV MWF Midodrine 5 mg PO TID Endo: DM type 2 ISS- low dose protocol Levemir 8 units AMHS Novolog 5 units AC Heme: Dr. Crawford consulted, help appreciated Hgb 7.9, stable from yesterday 7.8 f/u heme recs - f/u retic count, B12, Folate --> will replete B12 with IM injection if low. discuss with Nephro of possibility of increasing procrit with HD - Ferretin 1380 (10/11) --> anemia likely due to chronic disease ID: WBC - stable at 19.4 from 19.2 Right plantar pressure ulcer - Dr. Lundberg consulted * offloading heel boots ID, Dr. Zimmer Help appreciated Medications: * Aztreonam 1g IVBP q24 - discontinued * Cefepimne 1g PO q24 * Zyvox 600mg IVPB q12 - discontinued * Flagyl 500mg GT q8 * Fluconazone 100mg IVPB q24 Urine culture 10/14 - yeast Trach asp 10/14 - normal oral diane Blood culture 10/13 - no growth Skin: Sacral Decub - unstageable Dr. Forbes (General Surgery) consulted, help appreciated * no plan for surgical intervention at this time. Electrolytes: K+ 3.7 Prophylaxis DVT: SCDs and Eliquis 2.5mg PO BID GI: pepcid 20 mg PO daily, florastor 250mg PO BID Patient is stable. Will transfer to telemetry. Case discussed with Dr. Tab Stanford PGY1 <Bárbara Barth - Last Filed: 10/21/17 15:19> CCU Objective - Vital Signs / Intake & Output Vital Signs (Last 4 hours): Vital Signs Pulse Resp BP Pulse Ox 10/21/17 13:00 115 H 19 85/42 L 100 10/21/17 12:30 120 H 25 H 96/42 L 100 10/21/17 12:00 117 H 18 111/38 L 100 10/21/17 11:40 115 H 26 H 91/41 L 100 10/21/17 11:20 113 H 24 87/35 L 100 Intake and Output (Last 8hrs): Intake & Output 10/21/17 10/21/17 10/21/17 06:59 14:59 22:59 Intake Total 310 270 Output Total 0 100 Balance 310 170 Weight 156 lb 11.979 oz Intake: Intake, IV Amount 50 Right Proximal Port 50 Oral 40 Tube Feeding 310 180 Output: Urine 0 0 Urine, Voided 0 0 Stool 100 - Medications Active Medications: Active Medications Generic Name Dose Route Start Last Admin Trade Name Freq PRN Reason Stop Dose Admin Albuterol/Ipratropium 3 ml 10/19/17 12:00 10/21/17 12:52 Duoneb 3 Mg/0.5 Mg (3 Ml) Ud INH Not Given RQ4 LUIS FERNANDO Apixaban 2.5 mg 08/27/17 12:00 10/21/17 09:23 Eliquis PO 2.5 mg BID LUIS FERNANDO Administration Ascorbic Acid 500 mg 10/20/17 10:00 10/21/17 09:25 Vitamin C 500 Mg Tab PEG 500 mg DAILY LUIS FERNANDO Administration Aspirin 81 mg 10/19/17 10:00 10/21/17 10:30 Aspirin Chewable PO 81 mg DAILY LUIS FERNANDO Administration Bisacodyl 10 mg 10/21/17 15:[address] ONCE PRN Constipation Calcitriol 0.25 mcg 10/20/17 10:00 10/21/17 09:25 Rocaltrol PEG 0.25 mcg DAILY LUIS FERNANDO Administration Collagenase 1 gm 10/19/17 18:15 10/21/17 09:25 Santyl TOP 1 applic DAILY LUIS FERNANDO Administration Epoetin Chencho 10,000 unit 10/05/17 11:45 10/21/17 12:45 Procrit IV 10,000 unit MWF LUIS FERNANDO Administration Famotidine 20 mg 08/09/17 10:00 10/21/17 09:23 Pepcid PO 20 mg DAILY LUIS FERNANDO Administration Cefepime HCl 1 gm/ Dextrose 50 mls @ 100 mls/hr 10/12/17 08:30 10/21/17 08:19 IVPB 100 mls/hr Q24H LUIS FERNANDO Administration Fluconazole 50 mls @ 100 mls/hr 10/14/17 19:00 10/20/17 18:28 Diflucan Iv 100 Mg/50 Ml Ns IVPB 100 mls/hr Q24H LUIS FERNANDO Administration Insulin Aspart 0 unit 10/20/17 12:00 10/21/17 12:08 Novolog SC 1 unit Q6 LUIS FERNANDO Administration Protocol Insulin Detemir 8 unit 10/12/17 22:00 10/20/17 22:00 Levemir SC 8 unit AMHS LUIS FERNANDO Administration Metoprolol Tartrate 12.5 mg 10/20/17 08:30 10/21/17 08:19 Lopressor PEG 12.5 mg BIDBS LUIS FERNANDO Administration Metronidazole 500 mg 10/16/17 14:00 10/21/17 14:59 Flagyl GT 500 mg Q8 LUIS FERNANDO Administration Midodrine 5 mg 10/17/17 14:00 10/21/17 15:01 Proamatine PO 5 mg TID LUIS FERNANDO Administration Multivitamins/Vitamin C 5 ml 10/20/17 10:00 10/21/17 10:55 Multi-Delyn Liquid PEG 5 ml DAILY LUIS FERNANDO Administration Rosuvastatin Calcium 10 mg 10/02/17 22:00 10/20/17 22:25 Crestor PO 10 mg HS LUIS FERNANDO Administration Saccharomyces Boulardii 250 mg 09/26/17 18:00 10/21/17 09:30 Florastor PO 250 mg BID LUIS FERNANDO Administration - Patient Studies Lab Studies: Microbiology Studies 09/07/17 04:00 Mycobacterial Culture - Final Other: Please Indicate 10/20/17 12:00 Ova and Parasite Concentrate Exam - Final Abdomen Lab Studies 10/21/17 10/21/17 10/21/17 Range/Units 11:34 06:36 06:36 WBC 19.4 H (4.8-10.8) K/uL RBC 2.90 L (4.40-5.90) Mil/uL Hgb 7.9 L (12.0-18.0) g/dL Hct 25.1 L (35.0-51.0) % MCV 86.4 (80.0-94.0) fL MCH 27.2 (27.0-31.0) pg MCHC 31.4 L (33.0-37.0) g/dL RDW 27.4 H (11.5-14.5) % Plt Count 581 H (130-400) K/uL MPV 7.9 (7.2-11.7) fL Neut % (Auto) 85.3 H (50.0-75.0) % Lymph % (Auto) 9.0 L (20.0-40.0) % Vance % (Auto) 4.5 (0.0-10.0) % Eos % (Auto) 0.9 (0.0-4.0) % Baso % (Auto) 0.3 (0.0-2.0) % Neut # 16.6 H (1.8-7.0) K/uL Lymph # 1.7 (1.0-4.3) K/uL Vance # 0.9 H (0.0-0.8) K/uL Eos # 0.2 (0.0-0.7) K/uL Baso # 0.1 (0.0-0.2) K/uL Neutrophils % (Manual) 83 H (50-75) % Band Neutrophils % 5 H (0-2) % Lymphocytes % (Manual) 9 L (20-40) % Monocytes % (Manual) 2 (0-10) % Eosinophils % (Manual) 1 (0-4) % Platelet Estimate Increased H (NORMAL) Large Platelets Present Hypochromasia (manual) Slight Anisocytosis (manual) Moderate Ovalocytes Slight Sodium 138 (132-148) mmol/L Potassium 3.7 (3.6-5.2) mmol/L Chloride 101 (98-107) mmol/L Carbon Dioxide 22 (22-30) mmol/L Anion Gap 19 (10-20) BUN 47 H (9-20) mg/dL Creatinine 3.7 H (0.8-1.5) mg/dL Est GFR ( Amer) 19 Est GFR (Non-Af Amer) 16 POC Glucose (mg/dL) 178 H (65-110) mg/dL Random Glucose 230 H (75-110) mg/dL Calcium 7.6 L (8.6-10.4) mg/dl Total Bilirubin 0.5 (0.2-1.3) mg/dL AST 36 (17-59) U/L ALT 55 (21-72) U/L Alkaline Phosphatase 111 (38-126) U/L Total Protein 6.7 (6.3-8.3) g/dL Albumin 2.9 L (3.5-5.0) g/dL Globulin 3.8 (2.2-3.9) gm/dL Albumin/Globulin Ratio 0.8 L (1.0-2.1) C. difficile Ag & Toxin (NEGATIVE) 10/21/17 10/21/17 10/20/17 Range/Units 06:35 00:49 18:11 WBC (4.8-10.8) K/uL RBC (4.40-5.90) Mil/uL Hgb (12.0-18.0) g/dL Hct (35.0-51.0) % MCV (80.0-94.0) fL MCH (27.0-31.0) pg MCHC (33.0-37.0) g/dL RDW (11.5-14.5) % Plt Count (130-400) K/uL MPV (7.2-11.7) fL Neut % (Auto) (50.0-75.0) % Lymph % (Auto) (20.0-40.0) % Vance % (Auto) (0.0-10.0) % Eos % (Auto) (0.0-4.0) % Baso % (Auto) (0.0-2.0) % Neut # (1.8-7.0) K/uL Lymph # (1.0-4.3) K/uL Vance # (0.0-0.8) K/uL Eos # (0.0-0.7) K/uL Baso # (0.0-0.2) K/uL Neutrophils % (Manual) (50-75) % Band Neutrophils % (0-2) % Lymphocytes % (Manual) (20-40) % Monocytes % (Manual) (0-10) % Eosinophils % (Manual) (0-4) % Platelet Estimate (NORMAL) Large Platelets Hypochromasia (manual) Anisocytosis (manual) Ovalocytes Sodium (132-148) mmol/L Potassium (3.6-5.2) mmol/L Chloride (98-107) mmol/L Carbon Dioxide (22-30) mmol/L Anion Gap (10-20) BUN (9-20) mg/dL Creatinine (0.8-1.5) mg/dL Est GFR ( Amer) Est GFR (Non-Af Amer) POC Glucose (mg/dL) 263 H 147 H 208 H (65-110) mg/dL Random Glucose (75-110) mg/dL Calcium (8.6-10.4) mg/dl Total Bilirubin (0.2-1.3) mg/dL AST (17-59) U/L ALT (21-72) U/L Alkaline Phosphatase (38-126) U/L Total Protein (6.3-8.3) g/dL Albumin (3.5-5.0) g/dL Globulin (2.2-3.9) gm/dL Albumin/Globulin Ratio (1.0-2.1) C. difficile Ag & Toxin (NEGATIVE) 10/20/17 Range/Units 12:00 WBC (4.8-10.8) K/uL RBC (4.40-5.90) Mil/uL Hgb (12.0-18.0) g/dL Hct (35.0-51.0) % MCV (80.0-94.0) fL MCH (27.0-31.0) pg MCHC (33.0-37.0) g/dL RDW (11.5-14.5) % Plt Count (130-400) K/uL MPV (7.2-11.7) fL Neut % (Auto) (50.0-75.0) % Lymph % (Auto) (20.0-40.0) % Vance % (Auto) (0.0-10.0) % Eos % (Auto) (0.0-4.0) % Baso % (Auto) (0.0-2.0) % Neut # (1.8-7.0) K/uL Lymph # (1.0-4.3) K/uL Vance # (0.0-0.8) K/uL Eos # (0.0-0.7) K/uL Baso # (0.0-0.2) K/uL Neutrophils % (Manual) (50-75) % Band Neutrophils % (0-2) % Lymphocytes % (Manual) (20-40) % Monocytes % (Manual) (0-10) % Eosinophils % (Manual) (0-4) % Platelet Estimate (NORMAL) Large Platelets Hypochromasia (manual) Anisocytosis (manual) Ovalocytes Sodium (132-148) mmol/L Potassium (3.6-5.2) mmol/L Chloride (98-107) mmol/L Carbon Dioxide (22-30) mmol/L Anion Gap (10-20) BUN (9-20) mg/dL Creatinine (0.8-1.5) mg/dL Est GFR ( Amer) Est GFR (Non-Af Amer) POC Glucose (mg/dL) (65-110) mg/dL Random Glucose (75-110) mg/dL Calcium (8.6-10.4) mg/dl Total Bilirubin (0.2-1.3) mg/dL AST (17-59) U/L ALT (21-72) U/L Alkaline Phosphatase (38-126) U/L Total Protein (6.3-8.3) g/dL Albumin (3.5-5.0) g/dL Globulin (2.2-3.9) gm/dL Albumin/Globulin Ratio (1.0-2.1) C. difficile Ag & Toxin Negative (NEGATIVE) Laboratory Results - last 24 hr 10/20/17 10/20/17 10/21/17 12:00 18:11 00:49 WBC RBC Hgb Hct MCV MCH MCHC RDW Plt Count MPV Neut % (Auto) Lymph % (Auto) Vance % (Auto) Eos % (Auto) Baso % (Auto) Neut # Lymph # Vance # Eos # Baso # Neutrophils % (Manual) Band Neutrophils % Lymphocytes % (Manual) Monocytes % (Manual) Eosinophils % (Manual) Platelet Estimate Large Platelets Hypochromasia (manual) Anisocytosis (manual) Ovalocytes Sodium Potassium Chloride Carbon Dioxide Anion Gap BUN Creatinine Est GFR ( Amer) Est GFR (Non-Af Amer) POC Glucose (mg/dL) 208 H 147 H Random Glucose Calcium Total Bilirubin AST ALT Alkaline Phosphatase Total Protein Albumin Globulin Albumin/Globulin Ratio C. difficile Ag & Toxin Negative 10/21/17 10/21/17 10/21/17 06:35 06:36 06:36 WBC 19.4 H RBC 2.90 L Hgb 7.9 L Hct 25.1 L MCV 86.4 MCH 27.2 MCHC 31.4 L RDW 27.4 H Plt Count 581 H MPV 7.9 Neut % (Auto) 85.3 H Lymph % (Auto) 9.0 L Vance % (Auto) 4.5 Eos % (Auto) 0.9 Baso % (Auto) 0.3 Neut # 16.6 H Lymph # 1.7 Vance # 0.9 H Eos # 0.2 Baso # 0.1 Neutrophils % (Manual) 83 H Band Neutrophils % 5 H Lymphocytes % (Manual) 9 L Monocytes % (Manual) 2 Eosinophils % (Manual) 1 Platelet Estimate Increased H Large Platelets Present Hypochromasia (manual) Slight Anisocytosis (manual) Moderate Ovalocytes Slight Sodium 138 Potassium 3.7 Chloride 101 Carbon Dioxide 22 Anion Gap 19 BUN 47 H Creatinine 3.7 H Est GFR ( Amer) 19 Est GFR (Non-Af Amer) 16 POC Glucose (mg/dL) 263 H Random Glucose 230 H Calcium 7.6 L Total Bilirubin 0.5 AST 36 ALT 55 Alkaline Phosphatase 111 Total Protein 6.7 Albumin 2.9 L Globulin 3.8 Albumin/Globulin Ratio 0.8 L C. difficile Ag & Toxin 10/21/17 11:34 WBC RBC Hgb Hct MCV MCH MCHC RDW Plt Count MPV Neut % (Auto) Lymph % (Auto) Vance % (Auto) Eos % (Auto) Baso % (Auto) Neut # Lymph # Vance # Eos # Baso # Neutrophils % (Manual) Band Neutrophils % Lymphocytes % (Manual) Monocytes % (Manual) Eosinophils % (Manual) Platelet Estimate Large Platelets Hypochromasia (manual) Anisocytosis (manual) Ovalocytes Sodium Potassium Chloride Carbon Dioxide Anion Gap BUN Creatinine Est GFR ( Amer) Est GFR (Non-Af Amer) POC Glucose (mg/dL) 178 H Random Glucose Calcium Total Bilirubin AST ALT Alkaline Phosphatase Total Protein Albumin Globulin Albumin/Globulin Ratio C. difficile Ag & Toxin Critical Care Progress Note - Nutrition Nutrition: Nutrition Category Date Time Status NPO Diet [DIET] Diets 08/21/17 Dinner Active Assessment/Plan - Assessment and Plan (Free Text) Plan: Addendum: Patient seen and examined at bedside. Above resident has documented my findings. Patient is stable. -PRN dulcolax for constipation -aspiration precautions
--- NOTE | 2017-10-21 13:33 | CP.PCM.PN ---
Subjective - Date & Time of Evaluation Date of Evaluation: 10/21/17 Time of Evaluation: 01:15 - Subjective Subjective: dictated Objective - Vital Signs/Intake and Output Vital Signs (last 24 hours): Temp Pulse Resp BP Pulse Ox 97.9 F 115 H 19 85/42 L 100 10/21/17 10:00 10/21/17 13:00 10/21/17 13:00 10/21/17 13:00 10/21/17 13:00 Intake and Output: 10/21/17 10/21/17 06:59 18:59 Intake Total 520 270 Output Total 0 100 Balance 520 170 - Medications Medications: Current Medications Albuterol/Ipratropium (Duoneb 3 Mg/0.5 Mg (3 Ml) Ud) 3 ml INH RQ4 [facility] Last Admin: 10/21/17 12:52 Dose: Not Given Apixaban (Eliquis) 2.5 mg PO BID [facility] Last Admin: 10/21/17 09:23 Dose: 2.5 mg Ascorbic Acid (Vitamin C 500 Mg Tab) 500 mg PEG DAILY [facility] Last Admin: 10/21/17 09:25 Dose: 500 mg Aspirin (Aspirin Chewable) 81 mg PO DAILY [facility] Last Admin: 10/21/17 10:30 Dose: 81 mg Calcitriol (Rocaltrol) 0.25 mcg PEG DAILY [facility] Last Admin: 10/21/17 09:25 Dose: 0.25 mcg Collagenase (Santyl) 1 gm TOP DAILY [facility] Last Admin: 10/21/17 09:25 Dose: 1 applic Epoetin Chencho (Procrit) 10,000 unit IV MWF [facility] Last Admin: 10/21/17 12:45 Dose: 10,000 unit Famotidine (Pepcid) 20 mg PO DAILY [facility] Last Admin: 10/21/17 09:23 Dose: 20 mg Cefepime HCl 1 gm/ Dextrose 50 mls @ 100 mls/hr IVPB Q24H [facility] Last Admin: 10/21/17 08:19 Dose: 100 mls/hr Fluconazole (Diflucan Iv 100 Mg/50 Ml Ns) 50 mls @ 100 mls/hr IVPB Q24H [facility] Last Admin: 10/20/17 18:28 Dose: 100 mls/hr Insulin Aspart (Novolog) 0 unit SC Q6 [facility] PRN Reason: Protocol Last Admin: 10/21/17 12:08 Dose: 1 unit Insulin Detemir (Levemir) 8 unit SC AMHS [facility] Last Admin: 10/20/17 22:00 Dose: 8 unit Metoprolol Tartrate (Lopressor) 12.5 mg PEG BIDBS [facility] Last Admin: 10/21/17 08:19 Dose: 12.5 mg Metronidazole (Flagyl) 500 mg GT Q8 [facility] Last Admin: 10/21/17 06:48 Dose: 500 mg Midodrine (Proamatine) 5 mg PO TID [facility] Last Admin: 10/21/17 09:24 Dose: 5 mg Multivitamins/Vitamin C (Multi-Delyn Liquid) 5 ml PEG DAILY [facility] Last Admin: 10/21/17 10:55 Dose: 5 ml Rosuvastatin Calcium (Crestor) 10 mg PO HS [facility] Last Admin: 10/20/17 22:25 Dose: 10 mg Saccharomyces Boulardii (Florastor) 250 mg PO BID [facility] Last Admin: 10/21/17 09:30 Dose: 250 mg - Labs Labs: 10/21/17 06:36 10/21/17 06:36 PT 13.4 SECONDS (9.7-12.2) H 10/14/17 16:30 INR 1.2 10/14/17 16:30 APTT 28 SECONDS (21-34) 10/14/17 16:30
--- NOTE | 2017-10-21 18:18 | CP.PCM.PN ---
Subjective - Date & Time of Evaluation Date of Evaluation: 10/21/17 Time of Evaluation: 18:15 - Subjective Subjective: Medical Attending Note Patient seen and examined at bedside. Patient seen with this morning and grandson at bedside during dialysis. Patient is nonverbal. Unable to review of ROS secondary clinical condition. Objective - Vital Signs/Intake and Output Vital Signs (last 24 hours): Temp Pulse Resp BP Pulse Ox 97.9 F 115 H 19 85/42 L 100 10/21/17 10:00 10/21/17 13:00 10/21/17 13:00 10/21/17 13:00 10/21/17 13:00 Intake and Output: 10/21/17 10/21/17 06:59 18:59 Intake Total 520 515 Output Total 0 100 Balance 520 415 - Medications Medications: Current Medications Albuterol/Ipratropium (Duoneb 3 Mg/0.5 Mg (3 Ml) Ud) 3 ml INH RQ4 [facility] Last Admin: 10/21/17 12:52 Dose: Not Given Apixaban (Eliquis) 2.5 mg PO BID [facility] Last Admin: 10/21/17 17:53 Dose: 2.5 mg Ascorbic Acid (Vitamin C 500 Mg Tab) 500 mg PEG DAILY [facility] Last Admin: 10/21/17 09:25 Dose: 500 mg Aspirin (Aspirin Chewable) 81 mg PO DAILY [facility] Last Admin: 10/21/17 10:30 Dose: 81 mg Bisacodyl (Dulcolax) 10 mg MS ONCE PRN PRN Reason: Constipation Calcitriol (Rocaltrol) 0.25 mcg PEG DAILY [facility] Last Admin: 10/21/17 09:25 Dose: 0.25 mcg Collagenase (Santyl) 1 gm TOP DAILY [facility] Last Admin: 10/21/17 09:25 Dose: 1 applic Epoetin Chencho (Procrit) 10,000 unit IV MWF [facility] Last Admin: 10/21/17 12:45 Dose: 10,000 unit Famotidine (Pepcid) 20 mg PO DAILY [facility] Last Admin: 10/21/17 09:23 Dose: 20 mg Cefepime HCl 1 gm/ Dextrose 50 mls @ 100 mls/hr IVPB Q24H [facility] Last Admin: 10/21/17 08:19 Dose: 100 mls/hr Fluconazole (Diflucan Iv 100 Mg/50 Ml Ns) 50 mls @ 100 mls/hr IVPB Q24H [facility] Last Admin: 10/20/17 18:28 Dose: 100 mls/hr Insulin Aspart (Novolog) 0 unit SC Q6 [facility] PRN Reason: Protocol Last Admin: 10/21/17 17:54 Dose: 2 unit Insulin Detemir (Levemir) 8 unit SC AMHS [facility] Last Admin: 10/20/17 22:00 Dose: 8 unit Metoprolol Tartrate (Lopressor) 12.5 mg PEG BIDBS [facility] Last Admin: 10/21/17 16:48 Dose: Not Given Metronidazole (Flagyl) 500 mg GT Q8 [facility] Last Admin: 10/21/17 14:59 Dose: 500 mg Midodrine (Proamatine) 5 mg PO TID [facility] Last Admin: 10/21/17 17:53 Dose: 5 mg Multivitamins/Vitamin C (Multi-Delyn Liquid) 5 ml PEG DAILY [facility] Last Admin: 10/21/17 10:55 Dose: 5 ml Rosuvastatin Calcium (Crestor) 10 mg PO HS [facility] Last Admin: 10/20/17 22:25 Dose: 10 mg Saccharomyces Boulardii (Florastor) 250 mg PO BID [facility] Last Admin: 10/21/17 17:53 Dose: 250 mg - Labs Labs: 10/21/17 06:36 10/21/17 06:36 PT 13.4 SECONDS (9.7-12.2) H 10/14/17 16:30 INR 1.2 10/14/17 16:30 APTT 28 SECONDS (21-34) 10/14/17 16:30 - Constitutional Appears: Chronically Ill - Head Exam Head Exam: NORMAL INSPECTION Additional comments: trach collar c/d/i - Eye Exam Eye Exam: EOMI - ENT Exam ENT Exam: Mucous Membranes Moist - Respiratory Exam Respiratory Exam: Decreased Breath Sounds, Rhonchi - Cardiovascular Exam Cardiovascular Exam: REGULAR RHYTHM, +S1, +S2 - GI/Abdominal Exam GI & Abdominal Exam: Soft, Normal Bowel Sounds. absent: Distended, Firm, Guarding, Rigid, Tenderness, Rebound - Extremities Exam Extremities Exam: absent: Pedal Edema, Tenderness - Neurological Exam Neurological Exam: Awake Additional comments: able to wave upper extremities; will turn head towards his when asked - Skin Additional comments: Prevalon boots Assessment and Plan - Assessment and Plan (Free Text) Assessment: (1) Acute Respiratory Failure ARDS Cardiac Arrest Pulmonary Edema Nonstemi Assessment and Plan: * Code Blue on 08/10: asystole, cardiopulmonary resuscitative measures initiated , requiring 3 epis, bicarbonate, ROSC achieved and intubated and brought to the ICU. * ADOBE ARCHITECT 10/14 for Hypotension; unresponsiveness, secondary to sepsis-->patient is currently on ICU. * Started on Midrodrine 5mg PO TID * Restart Lopressor 12.5mg PO BID 10/20/17 * Pulmonary: Dr Mena (Dr. Jeffers covering until 09/04/17)-->help appreciated * Cardiology: Dr. Cortés on board-->help appreciated * GI (Dr. Wills) on board-->help appreciated * S/P Tracheostomy 08/22 * S/P Peg tube placement 08/25 * s/p insertion of right posterior chest tube 08/19-->removed 08/24/17 * Passy Mora Trach placed 09/15 * There was consideration for possible thoracentesis of left side pleural effusion, evaluated by IR, there is no fluid to drain per Dr. Gross * Chest xray (08/26): right arm PICC is seen with the tip of distal subclavian vein. PICC may be used * Chest Xray (09/20/17): lines and tubes stable position, left-sided pacemaker, moderate venous congestion, left basilar opacity with associated small left pleural effusion, Cardiomegaly. Prominent aorta, degenrative changes in spine and shoulders * Medications: * Acetylcysteine 20% 4ml INH RQ6H * Duoneb 3ml INH RQ6H * Aspirin 81mg PO daily * Eliquis 2.5mg PO bid * restart Lopressor 12.5mg PO bid 10/20/17 * Pulmonary and cardiology following (2) Abnormal Stress Test History of AICD History of Coronary Artery Disease Assessment and Plan: * Cardiology (Dr. Cortés) on board-->help appreciated * TSH: 1.16; T4: 1.53 * Echocardiogram (08/08/17): left ventricle systolic function is severely impaired. EF: 25-30%; global hypokinesis of left ventricle mild aortic regurgitation. Mitral regurgitation is moderate. Moderate-severe pulmonary hypertension * Plan was for cardiac catheterization; delayed due to acute renal failure; Attempted gentle hydration and mucomyst on 08/09 to optimize prior to cath * On 08/10, patient was in asystole, ACLS protocol, ROSC achieved, intubated and transfered to the ICU. Patient in acute pulmonary edema. * Patient hospitalized and require to and from ICU twice during this admission * Cardiac cath postponed at this time * Medications: * Acetylcysteine 20% 4ml INH RQ6H * Duoneb 3ml INH RQ6H * Aspirin 81mg PO daily * Eliquis 2.5mg PO bid * restart Lopressor 12.5mg PO bid 10/20/17 * Crestor 10mg POqHS * Lisinopril 5mg PO daily (3) Atrial flutter Assessment and Plan: * Cardiology (Dr. Cortés) on board-->help appreciated * Refractory to Lopressor/Cardizem IVP * Aspirin 81mg Po daily * c/w Eliquis 2.5mg PO bid * restart Lopressor 12.5mg PO bid 10/20/17 Status: Resolved (4) Acute on Chronic Systolic CHF exacerbation Assessment and Plan: * Cardiology (Dr. Cortés) on board-->help appreciated * Transferred to the ICU on 08/10 following cardiac arrest and intubation. * Echocardiogram (08/08/17): left ventricular systolic function is severely impaired. EF: 25-30%; global hypokinesis of left ventricle mild aortic regurgitation. Mitral regurgitation is moderate. Moderate-severe pulmonary hypertension * Medications: * Aspirin 81mg PO daily * restart Lopressor 12.5mg PO bid 10/20/17 * Lisinopril 5mg PO daily * Crestor 10mg POqHS Status: Stable (5) Leukocytosis Assessment and Plan: * Infectious Disease (Dr. Lawrence) on board-->help appreciated * Decreasing * Abnormal UA wit pyuria/hematuria * Heel eschar-->Podiatry on board * patient is on Cefepime 1 gram IV Q24H (active 10/12/17), Aztreonam 1 gram IV Q 24H (active since 10/13/17), and d/c Zyvox 600mg PO BID (active since 10/14/17 ), Diflucan 100mg IV Q 24 (active since 10/14/17) and Flagyl 500mg GT Q 8H * Etiology: pneumonia, and sacral decub; patient has alot of secretions; nursing and respiratory are suctioning * Pleural Fluid 08/19/17 did not show any growth * Blood cultures (09/13): no growth X5 days X2 * Blood cultures (09/07) during dialysis: no growth X5 days X2 * UA and urine culture (08/27): Yeast Species. * UA and urine culture (09/13): Yeast Species. * Urine culture (09/20): Yeast species * Urine culture (10/06/17): No growth * Urine culture (10/14/17): Yeast species * Sputum (10/14/17): Normal oral daine * MRSA (10/15/17): MRSA not detected * 09/07/17 Legionella Culture: negative * 09/07/17 Mycobacteria: negative * 09/07/17 Sputum: Enterocloace Bacter; yeast * Blood cultures (09/13): no growth X5 days X2 * Blood cultures (09/07) during dialysis: no growth X5 days X2 * Sacral Ulcer (09/14/17): VRE and Reny Albicans * Sacral Ulcer (09/15/17): VRE and Reny Albicans * Sacral Ulcer (09/20/17): VRE and Reny Albicans * Sacral Ulcer (09/30/17): Enterobacter Aerogenes-->Sensitive Cefepime IV * Blood cultures (10/13/17): no growth for 5 days X2 * Bone Scan performed 09/17/17 to check for Osteomyelitis at the Sacrum: negative for osteomyelitis * c/w Tigecycline (09/16/17): which will cover the VRE in Sacral Wound Culture 09/14/17 and repeat on 09/20/17--to finished 10/05/17 * c/w Diflucan 200 mg PO 1x/day (09/13/17-10/16/17: which will cover with Yeast in the Sputum, Urine, and Sacral Wound Culture-->stopped on 10/06/17; restarted 10/14/17- present * Procalcitionin: 8.60 (09/06/17)-->5.80 (09/20)-->2.86 (10/04)--->4.91 (10/12) * Per ID, Patient started on Cefepime 1 gram IV Q24H (active 10/12/17), Aztreonam 1 gram IV Q 24H (active since 10/13/17), and d/c Zyvox 600mg PO BID by ID on 10/18, and on Flagyl 500mg GT Q8H (active since 10/16/17) Status: Acute (6) Pneumonia Assessment and Plan: * Pulmonary (Dr. Mena) on board-->help appreciated * Infectious Disease (Dr. Lawrence)-->help appreciated * Rapid A strep, Influenza A and B studies, Urine Legionella, Mycoplasma studies = Negative * Florastor 250mg PO bid * 08/07/17: +Strep Pneumoniae in the urine * Meropenem 500mg IV Q 8 hours (08/14/17 through 08/18/17) and Zosyn 2.25 mg IV Q6H (08/13/17 through 08/18/17) * Cefepime 1 gm IV Q24H: started on 08/19/17 and was discontinued by ID Dr. Lawrence on 08/30/17: monitor vitals and labs * Restarted on 10/12/17 * s/p right posterior chest tube 08/19-08/24 * Sputum Culture 08/19/17 shows No growth * Pleural fluid 08/19/17: No growth * 09/07/17 Sputum: Enterocloace Bacter and Yeast Species: See Antibiotic treatment in previous Assessment and Plan * Sputum 09/10/17 shows NO AFB * Procalcitionin: 8.60 (09/06/17)-->5.80 (09/20)-->2.86 (10/04)--->4.91 (10/12) * Patient started on Cefepime 1 gram IV Q24H (active 10/12/17), Aztreonam 1 gram IV Q 24H (active since 10/13/17), d/c Zyvox 600mg PO BID by ID on 10/18, and on Flagyl 500mg GT Q8H (active since 10/16/17) Status: Acute (7) HTN (hypertension) Assessment and Plan: * ADOBE ARCHITECT 10/14--:hypotension--->started on Midodrine 5mg PO TID * d/c Lopressor 50mg PO bid * d/cLisinopril 5mg PO daily Status: Chronic (8) CKD (chronic kidney disease) on Dialysis Assessment and Plan: * Dr. Miranda (nephrology) consulted on the case * Hx of CKD-->Started on dialysis 08/15/17 * Kurtis catheter placed and removed 08/22 * s/p Right Chest Permcath 08/22 * Patient is on dialysis -W-; oliguric * Phoslo 1334mg GT TID * Epoetin 10,000 unit IV MWF * Requiring Albumin during dialysis sessions Status: Chronic (9) Diabetes mellitus Assessment and Plan: * Accuchecks Q6H * HgbA1c 8.4 * Levemir 8 unit AM and HS * Novolog subq 6H (sliding scale) * On vital 1.2 @ 20ml/hr with goal rate 70ml/hr starting 10/20 due to diarrhea episodes (10) HLD (hyperlipidemia) Assessment and Plan: * LFTS have normalized; will restart statin 09/20/17 * Crestor 10mg POqHS Status: Chronic (11) Anemia Assessment and Plan: * Heme-oncology (Dr. Giles bender) on board-->help appreciated * Likely iron deficiency anemia based on prior admissions * Ferritin 27.4, Iron 22, TIBC 322, % Saturation 7 * Ferric Sodium Gluconate 125mg IVPB daily (active 08/08-08/16) * Procrit 10,000 units -- * Monitor Hgb/Hct: stable Status: Chronic (12) History of DVT (deep vein thrombosis) Assessment and Plan: * Patient was previously on Eliquis for a prior history of DVT. * Repeat dopplers 08/09/17 are negative for DVT * Off Heparin Drip 08/17/17 * Started Eliquis 2.5mg PO BID for atrial flutter and history of DVT Status: Chronic (13) UTI Assessment and Plan: * Infectious disease (Dr. Lawrence) on board-->help appreciated * Exchange jaquez out and repeat urine cultures * Urine Culture 08/12/17 showed Gram Negative Rods: NO identification and NO sensitivities were performed * Meropenem 500mg IV Q 12hours (active since 08/14/17 through 08/18/17) to cover for UTI per ID * Repeat Urine Culture 08/18/17 shows NO growth * 08/25: reculture in light of leukocytosis * 08/27: pending urine studies * 08/30: Urine Culture 08/27/17 showed Yeast Species but no antifungal at that time secondary to recent history of Elevated LFTs * Urine Culture 09/13/17 showed Yeast Species: completed Diflucan on 10/06/17 * Urine culture (10/06/17): No growth * Urine culture (10/14/17): yeast Status: Chronic (14) Confusion; Alzheimer's Dementia Assessment and Plan: * Per daughter, patient has been getting bouts of confusion over the past year but appears at baseline. Patient has not seen formal neurology as outpatient per daughter. Per , prior to event, noted Alzheimers' disease dx one year ago * CT head w/o contrast (08/10/17):acute os subacute lacune infarct is not excluded in the left basal ganglia inferiorly with definitive chronic lacune identified in the right basal ganglia superiorly. No acute or subacute lobar brain infarction is appreciable by standard CT criteria. Mild age-related neuro degenerative changes are identifed. No acute intracranial hemorrhage or mass is identified throughout * 08/26: Off Sedation-->patient moves all extremities randomly but does not follow directions * 08/27: off sedation-->patient is very calm, smiles at his * 08/28: off sedation-->patient is very calm * 10/14: ADOBE ARCHITECT for hypotension and lethargy; CT Head was repeated given patient is on Eliquis: * CT Head w/o contrast (10/14/17): no intracranial mass, hemorrhage, or evidence of acute infarct. 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 Old right external capsule ischemic change. Age related atrophy and chronic microvascular ischemic change Status: Chronic (15) Unstageable Sacral Ulcer, Left Ear Auricle Ulcer, Right Heal Ulcer Assessment and Plan: * Wound care on board * WOUND CARE [id number] patients sacral ulcer. Base softening up. Must continue medi-honey (nickel thick) then cover with a bordered dressing to be done daily. Patient must be repositioned frequently to optimize offloading of sacral region. Right heel is dark purple in color. Must continue to elevate both heels at all times to optimize heel offloading. Hemoglobin-9.6, Marshal of 14. Patient continues to be at risk for skin breakdown. will continue to follow. 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 * Sacral Ulcer (09/15/17): VRE and Reny Albicans * Sacral Ulcer (09/20/17): VRE and Reny Albicans * Sacral Ulcer (09/30/17): Enterobacter Aerogenes-->Sensitive Cefepime IV * Bone Scan performed 09/17/17 to check for Osteomyelitis at the Sacrum: negative for osteomyeliti * Daily wound care and dressing change by medicine team; healing appropriately Antibiotics * c/w Tigecycline (09/16/17: which will cover the VRE in Sacral Wound Culture and repeat on 09/20/17-->PER ID, d/c 10/15/17 * c/w Diflucan 200 mg PO 1x/day (09/13/17; Day 20): which will cover with Yeast in the Sputum, Urine, and Sacral Wound Culture--> PER ID, D/c 10/06/17; restarted on 10/14/17 * Procalcitionin: 8.60 (09/06/17)-->5.80 (09/20)-->2.86 (10/04)--->4.91 (10/12) * Patient started on Cefepime 1 gram IV Q24H (active 10/12/17), Aztreonam 1 gram IV Q 24H (active since 10/13/17), d/c Zyvox 600mg PO BID by ID on 10/18, and on Flagyl 500mg GT Q8H (active since 10/16/17) Status: Acute (16) Elevated LFTs Assessment and Plan: * Have normalized * Currently off Diflucan since 10/06/17; restart 10/14/17 * Crestor 10mg POqHS (17). Diarrhea * C. Diff negative X3 * Stool ova and parasite negative * Stool leukocytes negative * On vital 1.2 @ 20ml/hr with goal rate 70ml/hr on 10/20 (18). Hyponatremia-->resolved (19). Prophylactic measure Assessment and Plan: * Pepcid 20mg PO daily * Start Eliquis 2.5mg PO BID * s/p peg placement 08/25 * s/p trachesostomy 08/22 * s/p Permcath placement 08/22 removal Kurtis catheter * s/p right posterior chest tube 08/19-->removed 08/24 * s/p Right Arm PICC 08/26 * Passy Flex Trach placed 09/15 * (Jovita Serrano): -->number provided to the nurse- ->consented for peg placement; discussed about LTAC 08/26 * Discussed with and grand son at bedside today * Spoke with Dr. Pickard, MARIAJOSE regarding patient's hospitalization up until 08/26 Disposition: * Pending outpatient rehab/dialysis placement; ongoing insurance talks * Patient having diarrhea in spite of Flexseal; ordered for stool studies including C.dif negative X3, ova and parasite negative, culture stool leukocytes negative; dietary adjusted feeding to in accordance to diarrhea on * Infectious disease adjusted medications on 10/14 (ADOBE ARCHITECT). Patient started on Cefepime 1 gram IV Q24H (active 10/12/17), Aztreonam 1 gram IV Q 24H (active since 10/13/17), d/c Zyvox 600mg PO BID by ID on 10/18, and on Flagyl 500mg GT Q8H (active since 10/16/17) * restart Lopressor 12.5mg PO bid 10/20/17
[2017-10-21] MEDS: Fluconazole IV 100mg/50 ml NS 50 ML IVPB SCH (18:22)
--- NOTE | 2017-10-21 20:44 | PN ---
DATE: SUBJECTIVE: The patient got dialysis today and the cooling tower technician told me that he took out only 600 mL of fluid. PHYSICAL EXAMINATION: GENERAL: The patient remains on the trach mask and was awake, opening his eyes. VITAL SIGNS: T-max is 97.9, pulse of 115, respirations are 19, blood pressure 85/42 and saturation is 100%. HEENT: Unremarkable. Trach site appears okay. NECK: Supple. LUNGS: Clear. No crackles or rales present. HEART: S1 and S2 are regular. ABDOMEN: Soft, flabby, nontender. PEG present. EXTREMITIES: Have no edema. He does have a sacral decubitus. LABORATORY DATA: White count today is 19.4, hemoglobin 7.9, hematocrit 25.1, platelet count is 581. ASSESSMENT AND PLAN: He remains on cefepime, Diflucan and Flagyl at this time and we will continue those for now and we will follow. Allan Lawrence MD
--- NOTE | 2017-10-21 22:08 | CP.PCM.PN ---
Subjective - Date & Time of Evaluation Date of Evaluation: 10/21/17 Time of Evaluation: 12:30 - Subjective Subjective: Patient seen and evaluated No cardiac events noted Objective - Vital Signs/Intake and Output Vital Signs (last 24 hours): Temp Pulse Resp BP Pulse Ox 98.6 F 128 H 27 H 116/45 L 100 10/21/17 20:00 10/21/17 21:08 10/21/17 21:08 10/21/17 21:08 10/21/17 21:08 Intake and Output: 10/21/17 10/22/17 18:59 06:59 Intake Total 625 165 Output Total 130 0 Balance 495 165 - Medications Medications: Current Medications Albuterol/Ipratropium (Duoneb 3 Mg/0.5 Mg (3 Ml) Ud) 3 ml INH RQ4 [facility] Last Admin: 10/21/17 19:19 Dose: 3 ml Apixaban (Eliquis) 2.5 mg PO BID [facility] Last Admin: 10/21/17 17:53 Dose: 2.5 mg Ascorbic Acid (Vitamin C 500 Mg Tab) 500 mg PEG DAILY [facility] Last Admin: 10/21/17 09:25 Dose: 500 mg Aspirin (Aspirin Chewable) 81 mg PO DAILY [facility] Last Admin: 10/21/17 10:30 Dose: 81 mg Bisacodyl (Dulcolax) 10 mg DC ONCE PRN PRN Reason: Constipation Calcitriol (Rocaltrol) 0.25 mcg PEG DAILY [facility] Last Admin: 10/21/17 09:25 Dose: 0.25 mcg Collagenase (Santyl) 1 gm TOP DAILY [facility] Last Admin: 10/21/17 09:25 Dose: 1 applic Epoetin Chencho (Procrit) 10,000 unit IV MWF [facility] Last Admin: 10/21/17 12:45 Dose: 10,000 unit Famotidine (Pepcid) 20 mg PO DAILY [facility] Last Admin: 10/21/17 09:23 Dose: 20 mg Cefepime HCl 1 gm/ Dextrose 50 mls @ 100 mls/hr IVPB Q24H [facility] Last Admin: 10/21/17 08:19 Dose: 100 mls/hr Fluconazole (Diflucan Iv 100 Mg/50 Ml Ns) 50 mls @ 100 mls/hr IVPB Q24H [facility] Last Admin: 10/21/17 18:22 Dose: 100 mls/hr Insulin Aspart (Novolog) 0 unit SC Q6 [facility] PRN Reason: Protocol Last Admin: 10/21/17 17:54 Dose: 2 unit Insulin Detemir (Levemir) 8 unit SC AMHS [facility] Last Admin: 10/21/17 10:00 Dose: 8 unit Metoprolol Tartrate (Lopressor) 12.5 mg PEG BIDBS [facility] Last Admin: 10/21/17 16:48 Dose: Not Given Metronidazole (Flagyl) 500 mg GT Q8 [facility] Last Admin: 10/21/17 14:59 Dose: 500 mg Midodrine (Proamatine) 5 mg PO TID [facility] Last Admin: 10/21/17 17:53 Dose: 5 mg Multivitamins/Vitamin C (Multi-Delyn Liquid) 5 ml PEG DAILY [facility] Last Admin: 10/21/17 10:55 Dose: 5 ml Rosuvastatin Calcium (Crestor) 10 mg PO HS [facility] Last Admin: 10/20/17 22:25 Dose: 10 mg Saccharomyces Boulardii (Florastor) 250 mg PO BID [facility] Last Admin: 10/21/17 17:53 Dose: 250 mg - Labs Labs: 10/21/17 06:36 10/21/17 06:36 PT 13.4 SECONDS (9.7-12.2) H 10/14/17 16:30 INR 1.2 10/14/17 16:30 APTT 28 SECONDS (21-34) 10/14/17 16:30
[2017-10-22] MEDS: Albuterol-Ipratrop 3 mg / 0.5 (3 ml) UD INH SCH ×2 (01:17→04:18)
[2017-10-22] MEDS: (Novolog) Insulin Aspart, Recombinant 100 u/ml 10 ml vial SC SCH ×3 (06:00→17:43)
[2017-10-22 06:40] LABS: ALB/GLOB RATIO 0.8 (1.0-2.1); BILIRUBIN,TOTAL 0.5 mg/dL (0.2-1.3); CALCIUM 7.9 mg/dl (8.6-10.4); POTASSIUM 3.7 mmol/L (3.6-5.2); TOTAL PROTEIN 7.1 g/dL (6.3-8.3)
[2017-10-22 06:43] LABS: BASO # 0.1 K/uL (0.0-0.2); BASO % 0.5 % (0.0-2.0); EOS # 0.1 K/uL (0.0-0.7); EOS % 0.5 % (0.0-4.0); HEMATOCRIT 26.9 % (35.0-51.0); LYMPH % 9.2 % (20.0-40.0); MEAN CELL VOLUME 86.5 fL (80.0-94.0); MEAN CORPUSCULAR HEMOGLOBIN 26.9 pg (27.0-31.0); MEAN CORPUSCULAR HGB CONC 31.1 g/dL (33.0-37.0); MEAN PLATELET VOLUME 7.6 fL (7.2-11.7); MONO # 1.5 K/uL (0.0-0.8); MONO % 6.8 % (0.0-10.0); NRBC % 0.3 % (0.0-2.0); PLATELET COUNT 574 K/uL (130-400); RED CELL DISTRIBUTION WIDTH 26.9 % (11.5-14.5)
[2017-10-22] MEDS: Ipratropium 0.02% Inhal Soln (0.5 mg/2.5 ml) UD IH SCH ×3 (07:52→19:28)
[2017-10-22] MEDS: Insulin Detemir 100 units/ml Vial (Levemir) SC SCH ×4 (08:09→21:20)
--- NOTE | 2017-10-22 08:29 | CP.PCM.PN ---
Subjective - Date & Time of Evaluation Date of Evaluation: 10/22/17 Time of Evaluation: 08:25 - Subjective Subjective: Medical Attending Note: Reread overnight nursing note: patient vomitted this morning once. Minimal residual on her time. Patient start on PRN Zofran. Patient seen and examined this morning. Patient is nonverbal, on trach collars. Unable to review of ROS secondary to clinical condition. Patient is arousable. Objective - Vital Signs/Intake and Output Vital Signs (last 24 hours): Temp Pulse Resp BP Pulse Ox 99.8 F H 143 H 27 H 96/47 L 100 10/22/17 00:00 10/22/17 07:00 10/22/17 07:00 10/22/17 06:47 10/22/17 07:00 Intake and Output: 10/22/17 10/22/17 06:59 18:59 Intake Total 550 55 Output Total 270 0 Balance 280 55 - Medications Medications: Current Medications Apixaban (Eliquis) 2.5 mg PO BID [facility] Last Admin: 10/21/17 17:53 Dose: 2.5 mg Ascorbic Acid (Vitamin C 500 Mg Tab) 500 mg PEG DAILY [facility] Last Admin: 10/21/17 09:25 Dose: 500 mg Aspirin (Aspirin Chewable) 81 mg PO DAILY [facility] Last Admin: 10/21/17 10:30 Dose: 81 mg Bisacodyl (Dulcolax) 10 mg HI ONCE PRN PRN Reason: Constipation Calcitriol (Rocaltrol) 0.25 mcg PEG DAILY [facility] Last Admin: 10/21/17 09:25 Dose: 0.25 mcg Collagenase (Santyl) 1 gm TOP DAILY [facility] Last Admin: 10/21/17 09:25 Dose: 1 applic Epoetin Chencho (Procrit) 10,000 unit IV MWF [facility] Last Admin: 10/21/17 12:45 Dose: 10,000 unit Famotidine (Pepcid) 20 mg PO DAILY [facility] Last Admin: 10/21/17 09:23 Dose: 20 mg Cefepime HCl 1 gm/ Dextrose 50 mls @ 100 mls/hr IVPB Q24H [facility] Last Admin: 10/22/17 08:11 Dose: 100 mls/hr Fluconazole (Diflucan Iv 100 Mg/50 Ml Ns) 50 mls @ 100 mls/hr IVPB Q24H [facility] Last Admin: 10/21/17 18:22 Dose: 100 mls/hr Insulin Aspart (Novolog) 0 unit SC Q6 [facility] PRN Reason: Protocol Last Admin: 10/22/17 06:00 Dose: 3 unit Insulin Detemir (Levemir) 8 unit SC AMHS [facility] Last Admin: 10/22/17 08:09 Dose: 8 unit Ipratropium [place] (Atrovent) 0.5 mg IH RQ6 [facility] Last Admin: 10/22/17 07:52 Dose: 0.5 mg Metoprolol Tartrate (Lopressor) 12.5 mg PEG BIDBS [facility] Metronidazole (Flagyl) 500 mg GT Q8 [facility] Last Admin: 10/22/17 06:46 Dose: 500 mg Midodrine (Proamatine) 5 mg PO TID [facility] Last Admin: 10/21/17 17:53 Dose: 5 mg Multivitamins/Vitamin C (Multi-Delyn Liquid) 5 ml PEG DAILY [facility] Last Admin: 10/21/17 10:55 Dose: 5 ml Rosuvastatin Calcium (Crestor) 10 mg PO HS [facility] Last Admin: 10/21/17 22:00 Dose: 10 mg Saccharomyces Boulardii (Florastor) 250 mg PO BID [facility] Last Admin: 10/21/17 17:53 Dose: 250 mg - Labs Labs: 10/22/17 06:40 10/22/17 05:59 PT 13.4 SECONDS (9.7-12.2) H 10/14/17 16:30 INR 1.2 10/14/17 16:30 APTT 28 SECONDS (21-34) 10/14/17 16:30 - Constitutional Appears: Chronically Ill - Head Exam Head Exam: NORMAL INSPECTION Additional comments: trach collar c/d/i - Eye Exam Eye Exam: absent: Nystagmus, Scleral icterus - ENT Exam ENT Exam: Mucous Membranes Moist - Respiratory Exam Respiratory Exam: Decreased Breath Sounds, Rhonchi - Cardiovascular Exam Cardiovascular Exam: Tachycardia, +S1, +S2 - GI/Abdominal Exam GI & Abdominal Exam: Soft, Normal Bowel Sounds. absent: Distended, Firm, Guarding, Rigid, Tenderness, Rebound - Extremities Exam Additional comments: Prevalon boots Assessment and Plan - Assessment and Plan (Free Text) Assessment: (1) Acute Respiratory Failure ARDS Cardiac Arrest Pulmonary Edema Nonstemi Assessment and Plan: * Code Blue on 08/10: asystole, cardiopulmonary resuscitative measures initiated , requiring 3 epis, bicarbonate, ROSC achieved and intubated and brought to the ICU. * RIGGER APPRENTICE 10/14 for Hypotension; unresponsiveness, secondary to sepsis-->patient is currently on ICU. * Started on Midrodrine 5mg PO TID * Restart Lopressor 12.5mg PO BID 10/20/17 * Pulmonary: Dr Mena (Dr. Jeffers covering until 09/04/17)-->help appreciated * Cardiology: Dr. Cortés on board-->help appreciated * GI (Dr. Wills) on board-->help appreciated * S/P Tracheostomy 08/22 * S/P Peg tube placement 08/25 * s/p insertion of right posterior chest tube 08/19-->removed 08/24/17 * Passy [place] Trach placed 09/15 * There was consideration for possible thoracentesis of left side pleural effusion, evaluated by IR, there is no fluid to drain per Dr. Gross * Chest xray (08/26): right arm PICC is seen with the tip of distal subclavian vein. PICC may be used * Chest Xray (09/20/17): lines and tubes stable position, left-sided pacemaker, moderate venous congestion, left basilar opacity with associated small left pleural effusion, Cardiomegaly. Prominent aorta, degenrative changes in spine and shoulders * Medications: * Acetylcysteine 20% 4ml INH RQ6H * Duoneb 3ml INH RQ6H * Aspirin 81mg PO daily * Eliquis 2.5mg PO bid * restart Lopressor 12.5mg PO bid 10/20/17--> HOLD SBP<100 and HR<60 * Pulmonary and cardiology following (2) Abnormal Stress Test History of AICD History of Coronary Artery Disease Assessment and Plan: * Cardiology (Dr. Cortés) on board-->help appreciated * TSH: 1.16; T4: 1.53 * Echocardiogram (08/08/17): left ventricle systolic function is severely impaired. EF: 25-30%; global hypokinesis of left ventricle mild aortic regurgitation. Mitral regurgitation is moderate. Moderate-severe pulmonary hypertension * Plan was for cardiac catheterization; delayed due to acute renal failure; Attempted gentle hydration and mucomyst on 08/09 to optimize prior to cath * On 08/10, patient was in asystole, ACLS protocol, ROSC achieved, intubated and transfered to the ICU. Patient in acute pulmonary edema. * Patient hospitalized and require to and from ICU twice during this admission * Cardiac cath postponed at this time * Medications: * Acetylcysteine 20% 4ml INH RQ6H * Duoneb 3ml INH RQ4H * Aspirin 81mg PO daily * Eliquis 2.5mg PO bid * restart Lopressor 12.5mg PO bid 10/20/17--> HOLD SBP<100 and HR<60 * Crestor 10mg POqHS * Lisinopril 5mg PO daily (3) Atrial flutter Assessment and Plan: * Cardiology (Dr. Cortés) on board-->help appreciated * Refractory to Lopressor/Cardizem IVP * Aspirin 81mg Po daily * c/w Eliquis 2.5mg PO bid * restart Lopressor 12.5mg PO bid 10/20/17 Status: Resolved (4) Acute on Chronic Systolic CHF exacerbation Assessment and Plan: * Cardiology (Dr. Cortés) on board-->help appreciated * Transferred to the ICU on 08/10 following cardiac arrest and intubation. * Echocardiogram (08/08/17): left ventricular systolic function is severely impaired. EF: 25-30%; global hypokinesis of left ventricle mild aortic regurgitation. Mitral regurgitation is moderate. Moderate-severe pulmonary hypertension * Medications: * Aspirin 81mg PO daily * restart Lopressor 12.5mg PO bid 10/20/17 * Lisinopril 5mg PO daily * Crestor 10mg POqHS Status: Stable (5) Leukocytosis Assessment and Plan: * Infectious Disease (Dr. Lawrence) on board-->help appreciated * Decreasing * Abnormal UA wit pyuria/hematuria * Heel eschar-->Podiatry on board * patient is on Cefepime 1 gram IV Q24H (active 10/12/17), Aztreonam 1 gram IV Q 24H (active since 10/13/17), and d/c Zyvox 600mg PO BID (active since 10/14/17 ), Diflucan 100mg IV Q 24 (active since 10/14/17) and Flagyl 500mg GT Q 8H * Etiology: pneumonia, and sacral decub; patient has alot of secretions; nursing and respiratory are suctioning * Pleural Fluid 08/19/17 did not show any growth * Blood cultures (09/13): no growth X5 days X2 * Blood cultures (09/07) during dialysis: no growth X5 days X2 * UA and urine culture (08/27): Yeast Species. * UA and urine culture (09/13): Yeast Species. * Urine culture (09/20): Yeast species * Urine culture (10/06/17): No growth * Urine culture (10/14/17): Yeast species * Sputum (10/14/17): Normal oral diane * MRSA (10/15/17): MRSA not detected * 09/07/17 Legionella Culture: negative * 09/07/17 Mycobacteria: negative * 09/07/17 Sputum: Enterocloace Bacter; yeast * Blood cultures (09/13): no growth X5 days X2 * Blood cultures (09/07) during dialysis: no growth X5 days X2 * Sacral Ulcer (09/14/17): VRE and Reny Albicans * Sacral Ulcer (09/15/17): VRE and Reny Albicans * Sacral Ulcer (09/20/17): VRE and Reny Albicans * Sacral Ulcer (09/30/17): Enterobacter Aerogenes-->Sensitive Cefepime IV * Blood cultures (10/13/17): no growth for 5 days X2 * Bone Scan performed 09/17/17 to check for Osteomyelitis at the Sacrum: negative for osteomyelitis * c/w Tigecycline (09/16/17): which will cover the VRE in Sacral Wound Culture 09/14/17 and repeat on 09/20/17--to finished 10/05/17 * c/w Diflucan 200 mg PO 1x/day (09/13/17-10/16/17: which will cover with Yeast in the Sputum, Urine, and Sacral Wound Culture-->stopped on 10/06/17; restarted 10/14/17- present * Procalcitionin: 8.60 (09/06/17)-->5.80 (09/20)-->2.86 (10/04)--->4.91 (10/12) * Per ID, Patient started on Cefepime 1 gram IV Q24H (active 10/12/17), Aztreonam 1 gram IV Q 24H (active since 10/13/17), and d/c Zyvox 600mg PO BID by ID on 10/18, and on Flagyl 500mg GT Q8H (active since 10/16/17) Status: Acute (6) Pneumonia Assessment and Plan: * Pulmonary (Dr. Mena) on board-->help appreciated * Infectious Disease (Dr. Lawrence)-->help appreciated * Rapid A strep, Influenza A and B studies, Urine Legionella, Mycoplasma studies = Negative * Florastor 250mg PO bid * 08/07/17: +Strep Pneumoniae in the urine * Meropenem 500mg IV Q 8 hours (08/14/17 through 08/18/17) and Zosyn 2.25 mg IV Q6H (08/13/17 through 08/18/17) * Cefepime 1 gm IV Q24H: started on 08/19/17 and was discontinued by ID Dr. Lawrence on 08/30/17: monitor vitals and labs * Restarted on 10/12/17 * s/p right posterior chest tube 08/19-08/24 * Sputum Culture 08/19/17 shows No growth * Pleural fluid 08/19/17: No growth * 09/07/17 Sputum: Enterocloace Bacter and Yeast Species: See Antibiotic treatment in previous Assessment and Plan * Sputum 09/10/17 shows NO AFB * Procalcitionin: 8.60 (09/06/17)-->5.80 (09/20)-->2.86 (10/04)--->4.91 (10/12) * Patient started on Cefepime 1 gram IV Q24H (active 10/12/17), Aztreonam 1 gram IV Q 24H (active since 10/13/17), d/c Zyvox 600mg PO BID by ID on 10/18, and on Flagyl 500mg GT Q8H (active since 10/16/17) Status: Acute (7) HTN (hypertension) Assessment and Plan: * RIGGER APPRENTICE 10/14--:hypotension--->started on Midodrine 5mg PO TID * d/c Lopressor 50mg PO bid * d/cLisinopril 5mg PO daily Status: Chronic (8) CKD (chronic kidney disease) on Dialysis Assessment and Plan: * Dr. Miranda (nephrology) consulted on the case * Hx of CKD-->Started on dialysis 08/15/17 * Kurtis catheter placed and removed 08/22 * s/p Right Chest Permcath 08/22 * Patient is on dialysis -W-; oliguric * Phoslo 1334mg GT TID * Epoetin 10,000 unit IV MWF * Requiring Albumin during dialysis sessions Status: Chronic (9) Diabetes mellitus Assessment and Plan: * Accuchecks Q6H * HgbA1c 8.4 * Levemir 8 unit AM and HS * Novolog subq 6H (sliding scale) * On vital 1.2 @ 20ml/hr with goal rate 70ml/hr starting 10/20 due to diarrhea episodes (10) HLD (hyperlipidemia) Assessment and Plan: * LFTS have normalized; will restart statin 09/20/17 * Crestor 10mg POqHS Status: Chronic (11) Anemia Assessment and Plan: * Heme-oncology (Dr. Giles bender) on board-->help appreciated * Likely iron deficiency anemia based on prior admissions * Ferritin 27.4, Iron 22, TIBC 322, % Saturation 7 * Ferric Sodium Gluconate 125mg IVPB daily (active 08/08-08/16) * Procrit 10,000 units -- * Monitor Hgb/Hct: stable Status: Chronic (12) History of DVT (deep vein thrombosis) Assessment and Plan: * Patient was previously on Eliquis for a prior history of DVT. * Repeat dopplers 08/09/17 are negative for DVT * Off Heparin Drip 08/17/17 * Started Eliquis 2.5mg PO BID for atrial flutter and history of DVT Status: Chronic (13) UTI Assessment and Plan: * Infectious disease (Dr. Lawrence) on board-->help appreciated * Exchange jaquez out and repeat urine cultures * Urine Culture 08/12/17 showed Gram Negative Rods: NO identification and NO sensitivities were performed * Meropenem 500mg IV Q 12hours (active since 08/14/17 through 08/18/17) to cover for UTI per ID * Repeat Urine Culture 08/18/17 shows NO growth * 08/25: reculture in light of leukocytosis * 08/27: pending urine studies * 08/30: Urine Culture 08/27/17 showed Yeast Species but no antifungal at that time secondary to recent history of Elevated LFTs * Urine Culture 09/13/17 showed Yeast Species: completed Diflucan on 10/06/17 * Urine culture (10/06/17): No growth * Urine culture (10/14/17): yeast Status: Chronic (14) Confusion; Alzheimer's Dementia Assessment and Plan: * Per daughter, patient has been getting bouts of confusion over the past year but appears at baseline. Patient has not seen formal neurology as outpatient per daughter. Per , prior to event, noted Alzheimers' disease dx one year ago * CT head w/o contrast (08/10/17):acute os subacute lacune infarct is not excluded in the left basal ganglia inferiorly with definitive chronic lacune identified in the right basal ganglia superiorly. No acute or subacute lobar brain infarction is appreciable by standard CT criteria. Mild age-related neuro degenerative changes are identifed. No acute intracranial hemorrhage or mass is identified throughout * 08/26: Off Sedation-->patient moves all extremities randomly but does not follow directions * 08/27: off sedation-->patient is very calm, smiles at his * 08/28: off sedation-->patient is very calm * 10/14: RIGGER APPRENTICE for hypotension and lethargy; CT Head was repeated given patient is on Eliquis: * CT Head w/o contrast (10/14/17): no intracranial mass, hemorrhage, or evidence of acute infarct. 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 Old right external capsule ischemic change. Age related atrophy and chronic microvascular ischemic change Status: Chronic (15) Unstageable Sacral Ulcer, Left Ear Auricle Ulcer, Right Heal Ulcer Assessment and Plan: * Wound care on board * WOUND CARE VIBX-[id number]-[id number] patients sacral ulcer. Base softening up. Must continue medi-honey (nickel thick) then cover with a bordered dressing to be done daily. Patient must be repositioned frequently to optimize offloading of sacral region. Right heel is dark purple in color. Must continue to elevate both heels at all times to optimize heel offloading. Hemoglobin-9.6, Marshal of 14. Patient continues to be at risk for skin breakdown. will continue to follow. 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 * Sacral Ulcer (09/15/17): VRE and Reny Albicans * Sacral Ulcer (09/20/17): VRE and Reny Albicans * Sacral Ulcer (09/30/17): Enterobacter Aerogenes-->Sensitive Cefepime IV * Bone Scan performed 09/17/17 to check for Osteomyelitis at the Sacrum: negative for osteomyeliti * Daily wound care and dressing change by medicine team; healing appropriately Antibiotics * c/w Tigecycline (09/16/17: which will cover the VRE in Sacral Wound Culture and repeat on 09/20/17-->PER ID, d/c 10/15/17 * c/w Diflucan 200 mg PO 1x/day (09/13/17; Day 20): which will cover with Yeast in the Sputum, Urine, and Sacral Wound Culture--> PER ID, D/c 10/06/17; restarted on 10/14/17 * Procalcitionin: 8.60 (09/06/17)-->5.80 (09/20)-->2.86 (10/04)--->4.91 (10/12) * Patient started on Cefepime 1 gram IV Q24H (active 10/12/17), Aztreonam 1 gram IV Q 24H (active since 10/13/17), d/c Zyvox 600mg PO BID by ID on 10/18, and on Flagyl 500mg GT Q8H (active since 10/16/17) Status: Acute (16) Elevated LFTs Assessment and Plan: * Have normalized * Currently off Diflucan since 10/06/17; restart 10/14/17 * Crestor 10mg POqHS (17). Diarrhea * C. Diff negative X3 * Stool ova and parasite negative * Stool leukocytes negative * On vital 1.2 @ 20ml/hr with goal rate 70ml/hr on 10/20 (18). Hyponatremia-->resolved (19). Prophylactic measure Assessment and Plan: * Pepcid 20mg PO daily * Start Eliquis 2.5mg PO BID * s/p peg placement 08/25 * s/p trachesostomy 08/22 * s/p Permcath placement 08/22 removal Kurtis catheter * s/p right posterior chest tube 08/19-->removed 08/24 * s/p Right Arm PICC 08/26 * Passy [place] Trach placed 09/15 * (Jovita Serrano): -->number provided to the nurse- ->consented for peg placement; discussed about LTAC 08/26 * Discussed with and grand son at bedside today * Spoke with Dr. Pickard, PMD regarding patient's hospitalization up until 08/26 Disposition: * Start Zofran PRN for nausea this morning * f/u nephrology to increase midodrine * Pending outpatient rehab/dialysis placement; ongoing insurance talks * Monitor patient's diarrhea and sacral wound * Infectious disease adjusted medications on 10/14 (RIGGER APPRENTICE). Patient started on Cefepime 1 gram IV Q24H (active 10/12/17), Aztreonam 1 gram IV Q 24H (active since 10/13/17), d/c Zyvox 600mg PO BID by ID on 10/18, and on Flagyl 500mg GT Q8H (active since 10/16/17). * restart Lopressor 12.5mg PO bid 10/20/17--> HOLD SBP<100 and HR<60
--- NOTE | 2017-10-22 08:55 | CP.PCM.PN ---
Subjective - Date & Time of Evaluation Date of Evaluation: 10/22/17 Time of Evaluation: 06:20 - Subjective Subjective: Surgery- Dr. Forbes Patient seen and examined at bedside. patient had one episode of vomiting. Tube feed rate was decreased. Patient is non-verbal however responds to come commands. Sacral dressing changed w/ Santyl Objective - Vital Signs/Intake and Output Vital Signs (last 24 hours): Temp Pulse Resp BP Pulse Ox 99.8 F H 143 H 27 H 96/47 L 100 10/22/17 00:00 10/22/17 07:00 10/22/17 07:00 10/22/17 06:47 10/22/17 07:00 Intake and Output: 10/22/17 10/22/17 06:59 18:59 Intake Total 550 55 Output Total 270 0 Balance 280 55 - Medications Medications: Current Medications Apixaban (Eliquis) 2.5 mg PO BID [facility] Last Admin: 10/21/17 17:53 Dose: 2.5 mg Ascorbic Acid (Vitamin C 500 Mg Tab) 500 mg PEG DAILY [facility] Last Admin: 10/21/17 09:25 Dose: 500 mg Aspirin (Aspirin Chewable) 81 mg PO DAILY [facility] Last Admin: 10/21/17 10:30 Dose: 81 mg Bisacodyl (Dulcolax) 10 mg OR ONCE PRN PRN Reason: Constipation Calcitriol (Rocaltrol) 0.25 mcg PEG DAILY [facility] Last Admin: 10/21/17 09:25 Dose: 0.25 mcg Collagenase (Santyl) 1 gm TOP DAILY [facility] Last Admin: 10/21/17 09:25 Dose: 1 applic Epoetin Chencho (Procrit) 10,000 unit IV MWF [facility] Last Admin: 10/21/17 12:45 Dose: 10,000 unit Famotidine (Pepcid) 20 mg PO DAILY [facility] Last Admin: 10/21/17 09:23 Dose: 20 mg Cefepime HCl 1 gm/ Dextrose 50 mls @ 100 mls/hr IVPB Q24H [facility] Last Admin: 10/22/17 08:11 Dose: 100 mls/hr Fluconazole (Diflucan Iv 100 Mg/50 Ml Ns) 50 mls @ 100 mls/hr IVPB Q24H [facility] Last Admin: 10/21/17 18:22 Dose: 100 mls/hr Insulin Aspart (Novolog) 0 unit SC Q6 [facility] PRN Reason: Protocol Last Admin: 10/22/17 06:00 Dose: 3 unit Insulin Detemir (Levemir) 8 unit SC AMHS [facility] Last Admin: 10/22/17 08:09 Dose: 8 unit Ipratropium [place] (Atrovent) 0.5 mg IH RQ6 [facility] Last Admin: 10/22/17 07:52 Dose: 0.5 mg Metoprolol Tartrate (Lopressor) 12.5 mg PEG BIDBS [facility] Metronidazole (Flagyl) 500 mg GT Q8 [facility] Last Admin: 10/22/17 06:46 Dose: 500 mg Midodrine (Proamatine) 5 mg PO TID [facility] Last Admin: 10/21/17 17:53 Dose: 5 mg Multivitamins/Vitamin C (Multi-Delyn Liquid) 5 ml PEG DAILY [facility] Last Admin: 10/21/17 10:55 Dose: 5 ml Ondansetron HCl (Zofran Inj) 4 mg IVP Q8H PRN PRN Reason: Nausea/Vomiting Rosuvastatin Calcium (Crestor) 10 mg PO HS [facility] Last Admin: 10/21/17 22:00 Dose: 10 mg Saccharomyces Boulardii (Florastor) 250 mg PO BID [facility] Last Admin: 10/21/17 17:53 Dose: 250 mg - Labs Labs: 10/22/17 06:40 10/22/17 05:59 PT 13.4 SECONDS (9.7-12.2) H 10/14/17 16:30 INR 1.2 10/14/17 16:30 APTT 28 SECONDS (21-34) 10/14/17 16:30 - Constitutional Appears: Non-toxic, No Acute Distress, Chronically Ill - Head Exam Head Exam: ATRAUMATIC - Eye Exam Eye Exam: absent: Scleral icterus - ENT Exam ENT Exam: Mucous Membranes Moist - Respiratory Exam Respiratory Exam: NORMAL BREATHING PATTERN. absent: Accessory Muscle Use, Respiratory Distress - Cardiovascular Exam Cardiovascular Exam: +S1, +S2. absent: Bradycardia, Tachycardia - GI/Abdominal Exam GI & Abdominal Exam: Soft. absent: Firm, Guarding, Rigid, Tenderness, Rebound - Extremities Exam Extremities Exam: absent: Calf Tenderness - Neurological Exam Neurological Exam: Awake. absent: Oriented x3 - Skin Skin Exam: Warm Additional comments: Stage 4 sacral decub ulcer Assessment and Plan - Assessment and Plan (Free Text) Assessment: 77M w/ stage 4 sacral decubitus ulcer - Continue IV abx - Daily dressing changes w/ Santyl - Wound care - No surgical intervention at this time - Discussed w/ Dr. Forbes surgical attending Linden Vicente PGY1
[2017-10-22 09:18] LABS: BASOPHIL 1 % (0-2); NEUTROPHIL 80 % (50-75); TOTAL CELLS COUNTED 100
[2017-10-22] MEDS: Saccharomyces Boulardi 250 mg Cap PO SCH ×2 (09:20→17:41)
[2017-10-22 09:21] LABS: LARGE PLATELETS PRESENT
[2017-10-22] MEDS: Multiple Vitamins Oral Solution PEG SCH (09:21)
[2017-10-22] MEDS: Collagenase 250 Units/gm Ointment(30 gm) TOP SCH (09:22)
[2017-10-22 09:24] LABS: PLATELET CLUMPS PRESENT
[2017-10-22 09:25] LABS: GIANT PLATELETS PRESENT
--- NOTE | 2017-10-22 10:07 | CP.PCM.PN ---
Subjective - Date & Time of Evaluation Date of Evaluation: 10/22/17 Time of Evaluation: 10:04 - Subjective Subjective: pt seen and examined on trach collar ongoing diarrhea had HD yesterday HR elevated earlier given verapamil ROS- unable to obtain as patient non verbal Objective - Vital Signs/Intake and Output Vital Signs (last 24 hours): Temp Pulse Resp BP Pulse Ox 99.8 F H 100 H 33 H 97/37 L 100 10/22/17 00:00 10/22/17 09:00 10/22/17 09:00 10/22/17 08:36 10/22/17 09:00 Intake and Output: 10/22/17 10/22/17 06:59 18:59 Intake Total 550 55 Output Total 270 0 Balance 280 55 - Medications Medications: Current Medications Apixaban (Eliquis) 2.5 mg PO BID [facility] Last Admin: 10/22/17 09:19 Dose: 2.5 mg Ascorbic Acid (Vitamin C 500 Mg Tab) 500 mg PEG DAILY [facility] Last Admin: 10/22/17 09:17 Dose: 500 mg Aspirin (Aspirin Chewable) 81 mg PO DAILY [facility] Last Admin: 10/22/17 09:15 Dose: 81 mg Bisacodyl (Dulcolax) 10 mg [place] ONCE PRN PRN Reason: Constipation Calcitriol (Rocaltrol) 0.25 mcg PEG DAILY [facility] Last Admin: 10/22/17 09:17 Dose: 0.25 mcg Collagenase (Santyl) 1 gm TOP DAILY [facility] Last Admin: 10/22/17 09:22 Dose: 1 applic Epoetin Chen[place] (Procrit) 10,000 unit IV MWF [facility] Last Admin: 10/21/17 12:45 Dose: 10,000 unit Famotidine (Pepcid) 20 mg PO DAILY [facility] Last Admin: 10/22/17 09:17 Dose: 20 mg Cefepime HCl 1 gm/ Dextrose 50 mls @ 100 mls/hr IVPB Q24H [facility] Last Admin: 10/22/17 08:11 Dose: 100 mls/hr Fluconazole (Diflucan Iv 100 Mg/50 Ml Ns) 50 mls @ 100 mls/hr IVPB Q24H [facility] Last Admin: 10/21/17 18:22 Dose: 100 mls/hr Insulin Aspart (Novolog) 0 unit SC Q6 [facility] PRN Reason: Protocol Last Admin: 10/22/17 06:00 Dose: 3 unit Insulin Detemir (Levemir) 8 unit SC AMHS [facility] Last Admin: 10/22/17 09:21 Dose: 8 unit Ipratropium [place] (Atrovent) 0.5 mg IH RQ6 [facility] Last Admin: 10/22/17 07:52 Dose: 0.5 mg Metoprolol Tartrate (Lopressor) 12.5 mg PEG BIDBS [facility] Metronidazole (Flagyl) 500 mg GT Q8 [facility] Last Admin: 10/22/17 06:46 Dose: 500 mg Midodrine (Proamatine) 5 mg PO TID [facility] Last Admin: 10/22/17 09:16 Dose: 5 mg Multivitamins/Vitamin C (Multi-Delyn Liquid) 5 ml PEG DAILY [facility] Last Admin: 10/22/17 09:21 Dose: 5 ml Ondansetron HCl (Zofran Inj) 4 mg IVP Q8H PRN PRN Reason: Nausea/Vomiting Rosuvastatin Calcium (Crestor) 10 mg PO HS [facility] Last Admin: 10/21/17 22:00 Dose: 10 mg Saccharomyces Boulardii (Florastor) 250 mg PO BID [facility] Last Admin: 10/22/17 09:20 Dose: 250 mg - Labs Labs: 10/22/17 06:40 10/22/17 05:59 PT 13.4 SECONDS (9.7-12.2) H 10/14/17 16:30 INR 1.2 10/14/17 16:30 APTT 28 SECONDS (21-34) 10/14/17 16:30 - Constitutional Appears: Non-toxic, No Acute Distress - Head Exam Head Exam: ATRAUMATIC, NORMOCEPHALIC - Eye Exam Eye Exam: EOMI, PERRL - ENT Exam Additional comments: trach in place - Respiratory Exam Respiratory Exam: Clear to Ausculation Bilateral, NORMAL BREATHING PATTERN - Cardiovascular Exam Cardiovascular Exam: Tachycardia, REGULAR RHYTHM - GI/Abdominal Exam GI & Abdominal Exam: Soft. absent: Distended, Tenderness - Extremities Exam Extremities Exam: Normal Inspection. absent: Pedal Edema - Neurological Exam Neurological Exam: absent: Alert, Awake, Oriented x3 - Skin Skin Exam: Normal Color, Warm Assessment and Plan (1) Acute on chronic renal failure Status: Resolved (2) CHF (congestive heart failure) Status: Acute (3) CKD stage 4 secondary to hypertension Status: Acute (4) Cardiac arrest Status: Acute (5) CAD (coronary artery disease) Status: Chronic - Assessment and Plan (Free Text) [facility] tuesday monitior HR BP on low side
--- NOTE | 2017-10-22 11:30 | CP.PCM.PN ---
Subjective - Date & Time of Evaluation Date of Evaluation: 10/22/17 Time of Evaluation: 11:26 - Subjective Subjective: Podiatry Progress Note- Dr. Lundberg: 77 yo patient seen at bedside today for f/u of chronic right heel ulceration. Seen resting in bed with offloading boots in place. Patient is in NAD and is AAOx3. Patient is non-responsive but appears to be responding to verbal commands by nodding his head. Objective - Vital Signs/Intake and Output Vital Signs (last 24 hours): Temp Pulse Resp BP Pulse Ox 99.8 F H 96 H 32 H 97/37 L 100 10/22/17 00:00 10/22/17 11:00 10/22/17 11:00 10/22/17 08:36 10/22/17 11:00 Intake and Output: 10/22/17 10/22/17 06:59 18:59 Intake Total 550 285 Output Total 270 0 Balance 280 285 - Medications Medications: Current Medications Apixaban (Eliquis) 2.5 mg PO BID [facility] Last Admin: 10/22/17 09:19 Dose: 2.5 mg Ascorbic Acid (Vitamin C 500 Mg Tab) 500 mg PEG DAILY [facility] Last Admin: 10/22/17 09:17 Dose: 500 mg Aspirin (Aspirin Chewable) 81 mg PO DAILY [facility] Last Admin: 10/22/17 09:15 Dose: 81 mg Bisacodyl (Dulcolax) 10 mg [place] ONCE PRN PRN Reason: Constipation Calcitriol (Rocaltrol) 0.25 mcg PEG DAILY [facility] Last Admin: 10/22/17 09:17 Dose: 0.25 mcg Collagenase (Santyl) 1 gm TOP DAILY [facility] Last Admin: 10/22/17 09:22 Dose: 1 applic Epoetin Chencho (Procrit) 10,000 unit IV MWF [facility] Last Admin: 10/21/17 12:45 Dose: 10,000 unit Famotidine (Pepcid) 20 mg PO DAILY [facility] Last Admin: 10/22/17 09:17 Dose: 20 mg Cefepime HCl 1 gm/ Dextrose 50 mls @ 100 mls/hr IVPB Q24H [facility] Last Admin: 10/22/17 08:11 Dose: 100 mls/hr Fluconazole (Diflucan Iv 100 Mg/50 Ml Ns) 50 mls @ 100 mls/hr IVPB Q24H [facility] Last Admin: 10/21/17 18:22 Dose: 100 mls/hr Insulin Aspart (Novolog) 0 unit SC Q6 [facility] PRN Reason: Protocol Last Admin: 10/22/17 06:00 Dose: 3 unit Insulin Detemir (Levemir) 8 unit SC AMHS [facility] Last Admin: 10/22/17 09:21 Dose: 8 unit Ipratropium [place] (Atrovent) 0.5 mg IH RQ6 [facility] Last Admin: 10/22/17 07:52 Dose: 0.5 mg Metoprolol Tartrate (Lopressor) 12.5 mg PEG BIDBS [facility] Metronidazole (Flagyl) 500 mg GT Q8 [facility] Last Admin: 10/22/17 06:46 Dose: 500 mg Midodrine (Proamatine) 5 mg PO TID [facility] Last Admin: 10/22/17 09:16 Dose: 5 mg Multivitamins/Vitamin C (Multi-Delyn Liquid) 5 ml PEG DAILY [facility] Last Admin: 10/22/17 09:21 Dose: 5 ml Ondansetron HCl (Zofran Inj) 4 mg IVP Q8H PRN PRN Reason: Nausea/Vomiting Rosuvastatin Calcium (Crestor) 10 mg PO HS [facility] Last Admin: 10/21/17 22:00 Dose: 10 mg Saccharomyces Boulardii (Florastor) 250 mg PO BID [facility] Last Admin: 10/22/17 09:20 Dose: 250 mg - Labs Labs: 10/22/17 06:40 10/22/17 05:59 PT 13.4 SECONDS (9.7-12.2) H 10/14/17 16:30 INR 1.2 10/14/17 16:30 APTT 28 SECONDS (21-34) 10/14/17 16:30 - Constitutional Appears: Well, Non-toxic, No Acute Distress - Extremities Exam Additional comments: BL lower ext exam: VASC- pedal pulses faintly palpable, [employer] >4 sec to all digits DERM- right heel appears to have necrotic eschar that is non-stagable, left heel is intact with no lesions, no opening or breaks in the skin, no active drainage, no clinical suspicion of active infection NEURO- pedal sensation grossly diminished ORTHO- slight tenderness to palpation of bilateral heels - Neurological Exam Neurological Exam: Alert, Awake, Oriented x3 - Psychiatric Exam Psychiatric exam: Normal Affect, Normal Mood Assessment and Plan - Assessment and Plan (Free Text) Assessment: 77 yo female patient seen and evaluated for right heel unstagable ulcer Plan: Patient seen and evaluated at bedside Plan discussed with Dr. Toño Pal applied to right heel c/w offloading heel boots Podiatry will continue to monitor patient
--- NOTE | 2017-10-22 13:29 | RAD ---
HISTORY: intubated COMPARISON: Comparison chest dated 10/21/2017 listen. FINDINGS: In situ tracheostomy tube in good position. Right subclavian dialysis catheter with tips in the SVC/RA junction unchanged. LUNGS: Mild bibasilar atelectasis with suspected small left-sided effusion. PLEURA: No significant pleural effusion identified, no pneumothorax apparent. CARDIOVASCULAR: Heart size stable. No change single lead pacemaker/ defibrillator. OSSEOUS STRUCTURES: No significant abnormalities. VISUALIZED UPPER ABDOMEN: Normal. OTHER FINDINGS: None. IMPRESSION: Mild bibasilar atelectasis with suspected small left effusion.
[2017-10-22] MEDS ORDERED: Sodium Chloride 0.9% 500 ML IV ONE (14:30)
[2017-10-22] MEDS: Fluconazole IV 100mg/50 ml NS 50 ML IVPB SCH (18:05)
[2017-10-22] MEDS ORDERED: Vancomycin 1 gm/NS 200 ml 1 GM/200 ML BAG IVPB STA (21:04)
--- NOTE | 2017-10-22 21:06 | CP.PCM.PN ---
Subjective - Date & Time of Evaluation Date of Evaluation: 10/22/17 Time of Evaluation: 04:00 - Subjective Subjective: dictated Objective - Vital Signs/Intake and Output Vital Signs (last 24 hours): Temp Pulse Resp BP Pulse Ox 99.8 F H 90 10 L 98/35 L 100 10/22/17 00:00 10/22/17 20:01 10/22/17 20:01 10/22/17 20:01 10/22/17 20:01 Intake and Output: 10/22/17 10/23/17 18:59 06:59 Intake Total 645 Output Total 0 Balance 645 - Medications Medications: Current Medications Apixaban (Eliquis) 2.5 mg PO BID [facility] Last Admin: 10/22/17 17:41 Dose: 2.5 mg Ascorbic Acid (Vitamin C 500 Mg Tab) 500 mg PEG DAILY [facility] Last Admin: 10/22/17 09:17 Dose: 500 mg Aspirin (Aspirin Chewable) 81 mg PO DAILY [facility] Last Admin: 10/22/17 09:15 Dose: 81 mg Bisacodyl (Dulcolax) 10 mg [place] ONCE PRN PRN Reason: Constipation Calcitriol (Rocaltrol) 0.25 mcg PEG DAILY [facility] Last Admin: 10/22/17 09:17 Dose: 0.25 mcg Collagenase (Santyl) 1 gm TOP DAILY [facility] Last Admin: 10/22/17 09:22 Dose: 1 applic Epoetin Chen[place] (Procrit) 10,000 unit IV MWF [facility] Last Admin: 10/21/17 12:45 Dose: 10,000 unit Famotidine (Pepcid) 20 mg PO DAILY [facility] Last Admin: 10/22/17 09:17 Dose: 20 mg Cefepime HCl 1 gm/ Dextrose 50 mls @ 100 mls/hr IVPB Q24H [facility] Last Admin: 10/22/17 08:11 Dose: 100 mls/hr Fluconazole (Diflucan Iv 100 Mg/50 Ml Ns) 50 mls @ 100 mls/hr IVPB Q24H [facility] Last Admin: 10/22/17 18:05 Dose: 100 mls/hr Vancomycin HCl 1 gm/ Sodium (Chloride) 250 mls @ 166.7 mls/hr IVPB STAT STA Stop: 10/22/17 22:33 Insulin Aspart (Novolog) 0 unit SC Q6 [facility] PRN Reason: Protocol Last Admin: 10/22/17 17:43 Dose: 3 unit Insulin Detemir (Levemir) 8 unit SC AMHS [facility] Last Admin: 10/22/17 09:21 Dose: 8 unit Ipratropium [place] (Atrovent) 0.5 mg IH RQ6 [facility] Last Admin: 10/22/17 19:28 Dose: 0.5 mg Metoprolol Tartrate (Lopressor) 25 mg PEG BIDBS [facility] Last Admin: 10/22/17 17:30 Dose: 25 mg Metronidazole (Flagyl) 500 mg GT Q8 [facility] Last Admin: 10/22/17 14:41 Dose: 500 mg Midodrine (Proamatine) 5 mg PO TID [facility] Last Admin: 10/22/17 17:45 Dose: 5 mg Multivitamins/Vitamin C (Multi-Delyn Liquid) 5 ml PEG DAILY [facility] Last Admin: 10/22/17 09:21 Dose: 5 ml Ondansetron HCl (Zofran Inj) 4 mg IVP Q8H PRN PRN Reason: Nausea/Vomiting Rosuvastatin Calcium (Crestor) 10 mg PO HS [facility] Last Admin: 10/21/17 22:00 Dose: 10 mg Saccharomyces Boulardii (Florastor) 250 mg PO BID [facility] Last Admin: 10/22/17 17:41 Dose: 250 mg - Labs Labs: 10/22/17 06:40 10/22/17 05:59 PT 13.4 SECONDS (9.7-12.2) H 10/14/17 16:30 INR 1.2 10/14/17 16:30 APTT 28 SECONDS (21-34) 10/14/17 16:30
--- NOTE | 2017-10-22 22:25 | CP.PCM.PN ---
Subjective - Date & Time of Evaluation Date of Evaluation: 10/22/17 Time of Evaluation: 11:45 - Subjective Subjective: Patient seen and evaluated Not in distress No cardiac events Objective - Vital Signs/Intake and Output Vital Signs (last 24 hours): Temp Pulse Resp BP Pulse Ox 99.8 F H 93 H 12 114/39 L 100 10/22/17 00:00 10/22/17 21:01 10/22/17 21:01 10/22/17 21:01 10/22/17 21:01 Intake and Output: 10/22/17 10/23/17 18:59 06:59 Intake Total 645 Output Total 0 Balance 645 - Medications Medications: Current Medications Apixaban (Eliquis) 2.5 mg PO BID [facility] Last Admin: 10/22/17 17:41 Dose: 2.5 mg Ascorbic Acid (Vitamin C 500 Mg Tab) 500 mg PEG DAILY [facility] Last Admin: 10/22/17 09:17 Dose: 500 mg Aspirin (Aspirin Chewable) 81 mg PO DAILY [facility] Last Admin: 10/22/17 09:15 Dose: 81 mg Bisacodyl (Dulcolax) 10 mg [place] ONCE PRN PRN Reason: Constipation Calcitriol (Rocaltrol) 0.25 mcg PEG DAILY [facility] Last Admin: 10/22/17 09:17 Dose: 0.25 mcg Collagenase (Santyl) 1 gm TOP DAILY [facility] Last Admin: 10/22/17 09:22 Dose: 1 applic Epoetin [place] (Procrit) 10,000 unit IV MWF [facility] Last Admin: 10/21/17 12:45 Dose: 10,000 unit Famotidine (Pepcid) 20 mg PO DAILY [facility] Last Admin: 10/22/17 09:17 Dose: 20 mg Cefepime HCl 1 gm/ Dextrose 50 mls @ 100 mls/hr IVPB Q24H [facility] Last Admin: 10/22/17 08:11 Dose: 100 mls/hr Fluconazole (Diflucan Iv 100 Mg/50 Ml Ns) 50 mls @ 100 mls/hr IVPB Q24H [facility] Last Admin: 10/22/17 18:05 Dose: 100 mls/hr Insulin Aspart (Novolog) 0 unit SC Q6 [facility] PRN Reason: Protocol Last Admin: 10/22/17 17:43 Dose: 3 unit Insulin Detemir (Levemir) 8 unit SC AMHS [facility] Last Admin: 10/22/17 21:20 Dose: 8 unit Ipratropium [place] (Atrovent) 0.5 mg IH RQ6 [facility] Last Admin: 10/22/17 19:28 Dose: 0.5 mg Metoprolol Tartrate (Lopressor) 25 mg PEG BIDBS [facility] Last Admin: 10/22/17 17:30 Dose: 25 mg Metronidazole (Flagyl) 500 mg GT Q8 [facility] Last Admin: 10/22/17 21:19 Dose: 500 mg Midodrine (Proamatine) 5 mg PO TID [facility] Last Admin: 10/22/17 17:45 Dose: 5 mg Multivitamins/Vitamin C (Multi-Delyn Liquid) 5 ml PEG DAILY [facility] Last Admin: 10/22/17 09:21 Dose: 5 ml Ondansetron HCl (Zofran Inj) 4 mg IVP Q8H PRN PRN Reason: Nausea/Vomiting Rosuvastatin Calcium (Crestor) 10 mg PO HS [facility] Last Admin: 10/22/17 21:19 Dose: 10 mg Saccharomyces Boulardii (Florastor) 250 mg PO BID [facility] Last Admin: 10/22/17 17:41 Dose: 250 mg - Labs Labs: 10/22/17 06:40 10/22/17 05:59 PT 13.4 SECONDS (9.7-12.2) H 10/14/17 16:30 INR 1.2 10/14/17 16:30 APTT 28 SECONDS (21-34) 10/14/17 16:30
--- NOTE | 2017-10-22 23:32 | CP.CCUPN ---
CCU Subjective - Physician Review Subjective (Free Text): Patient seen and examined at bedside. Patient non-verbal. Breathing comfortably. NO acute events overnight slight tachycardia during nebulizers CCU Objective - Vital Signs / Intake & Output Vital Signs (Last 4 hours): Vital Signs Pulse Resp BP Pulse Ox 10/22/17 21:01 93 H 12 114/39 L 100 10/22/17 21:00 97 H 12 100 10/22/17 20:01 90 10 L 98/35 L 100 10/22/17 20:00 95 H 17 100 Intake and Output (Last 8hrs): Intake & Output 10/22/17 10/22/17 10/23/17 14:59 22:59 06:59 Intake Total 585 60 Output Total 0 0 Balance 585 60 Intake: Intake, IV Amount 50 Right Proximal Port 50 Tube Feeding 535 60 Output: Urine 0 0 Urine, Voided 0 0 - Physical Exam Head: Positive for: Atraumatic, Other (trach) Pupils: Positive for: Sluggish Extroacular Muscles: Positive for: EOMI Conjunctiva: Positive for: Normal Mouth: Positive for: Moist Mucous Membranes Pharnyx: Positive for: Normal Neck: Positive for: Other (trach collar in place) Respiratory/Chest: Positive for: Clear to Auscultation, Good Air Exchange ( Anteriorly ), Other (Tracheostomy ). Negative for: Respiratory Distress, Accessory Muscle Use Cardiovascular: Positive for: Regular Rate and Rhythm, Normal S1, S2 Abdomen: Positive for: Normal Bowel Sounds, Other ((+) peg). Negative for: Tenderness, Peritoneal Signs Upper Extremity: Positive for: NORMAL PULSES, Other (patient moving upper extremities). Negative for: Edema Lower Extremity: Negative for: Edema, CALF TENDERNESS, Swelling Neurological: Positive for: Other (alert and awake but does not respond to voice commands). Negative for: Speech Normal Skin: Positive for: Warm, Dry, Other (stage III/IV decubiti). Negative for: Diaphoretic Psychiatric: Positive for: Alert, Other (non-verbal, trach). Negative for: Oriented x 3 - Medications Active Medications: Active Medications Generic Name Dose Route Start Last Admin Trade Name Freq PRN Reason Stop Dose Admin Apixaban 2.5 mg 08/27/17 12:00 10/22/17 17:41 Eliquis PO 2.5 mg BID LUIS FERNANDO Administration Ascorbic Acid 500 mg 10/20/17 10:00 10/22/17 09:17 Vitamin C 500 Mg Tab PEG 500 mg DAILY LUIS FERNANDO Administration Aspirin 81 mg 10/19/17 10:00 10/22/17 09:15 Aspirin Chewable PO 81 mg DAILY LUIS FERNANDO Administration Bisacodyl 10 mg 10/21/17 15:16 Dulcolax [place] ONCE PRN Constipation Calcitriol 0.25 mcg 10/20/17 10:00 10/22/17 09:17 Rocaltrol PEG 0.25 mcg DAILY LUIS FERNANDO Administration Collagenase 1 gm 10/19/17 18:15 10/22/17 09:22 Santyl TOP 1 applic DAILY LUIS FRENANDO Administration Epoetin Chencho 10,000 unit 10/05/17 11:45 10/21/17 12:45 Procrit IV 10,000 unit MWF LUIS FERNANDO Administration Famotidine 20 mg 08/09/17 10:00 10/22/17 09:17 Pepcid PO 20 mg DAILY LUIS FERNANDO Administration Cefepime HCl 1 gm/ Dextrose 50 mls @ 100 mls/hr 10/12/17 08:30 10/22/17 08:11 IVPB 100 mls/hr Q24H LUIS FERNANDO Administration Fluconazole 50 mls @ 100 mls/hr 10/14/17 19:00 10/22/17 18:05 Diflucan Iv 100 Mg/50 Ml Ns IVPB 100 mls/hr Q24H LUIS FERNANDO Administration Insulin Aspart 0 unit 10/20/17 12:00 10/22/17 17:43 Novolog SC 3 unit Q6 LUIS FERNANDO Administration Protocol Insulin Detemir 8 unit 10/12/17 22:00 10/22/17 21:20 Levemir SC 8 unit AMHS LUIS FERNANDO Administration Ipratropium [place] 0.5 mg 10/22/17 08:00 10/22/17 19:28 Atrovent IH 0.5 mg RQ6 LUIS FERNANDO Administration Metoprolol Tartrate 25 mg 10/22/17 14:30 10/22/17 17:30 Lopressor PEG 25 mg BIDBS LUIS FERNANDO Administration Metronidazole 500 mg 10/16/17 14:00 10/22/17 21:19 Flagyl GT 500 mg Q8 LUIS FERNANDO Administration Midodrine 5 mg 10/17/17 14:00 10/22/17 17:45 Proamatine PO 5 mg TID LUIS FERNANDO Administration Multivitamins/Vitamin C 5 ml 10/20/17 10:00 10/22/17 09:21 Multi-Delyn Liquid PEG 5 ml DAILY LUIS FERNANDO Administration Ondansetron HCl 4 mg 10/22/17 08:45 Zofran Inj IVP Q8H PRN Nausea/Vomiting Rosuvastatin Calcium 10 mg 10/02/17 22:00 10/22/17 21:19 Crestor PO 10 mg HS LUIS FERNANDO Administration Saccharomyces Boulardii 250 mg 09/26/17 18:00 10/22/17 17:41 Florastor PO 250 mg BID LUIS FERNANDO Administration - Patient Studies Lab Studies: Microbiology Studies 10/20/17 12:00 Stool Culture - Final Stool NO SALMONELLA, SHIGELLA OR CAMPYLOBACTER ISOLATED. Lab Studies 10/22/17 10/22/17 10/22/17 Range/Units 19:20 17:27 11:48 WBC (4.8-10.8) K/uL RBC (4.40-5.90) Mil/uL Hgb (12.0-18.0) g/dL Hct (35.0-51.0) % MCV (80.0-94.0) fL MCH (27.0-31.0) pg MCHC (33.0-37.0) g/dL RDW (11.5-14.5) % Plt Count (130-400) K/uL MPV (7.2-11.7) fL Neut % (Auto) (50.0-75.0) % Lymph % (Auto) (20.0-40.0) % Tw[place]gs % (Auto) (0.0-10.0) % Eos % (Auto) (0.0-4.0) % Baso % (Auto) (0.0-2.0) % Neut # (1.8-7.0) K/uL Lymph # (1.0-4.3) K/uL Twiggs # (0.0-0.8) K/uL Eos # (0.0-0.7) K/uL Baso # (0.0-0.2) K/uL Neutrophils % (Manual) (50-75) % Band Neutrophils % (0-2) % Lymphocytes % (Manual) (20-40) % Monocytes % (Manual) (0-10) % Basophils % (Manual) (0-2) % Toxic Granulation Platelet Estimate (NORMAL) Plt Clumps, EDTA Large Platelets Giant Platelets Polychromasia Hypochromasia (manual) Poikilocytosis (manual Basophilic Stippling Anisocytosis (manual) Ovalocytes Sodium (132-148) mmol/L Potassium (3.6-5.2) mmol/L Chloride (98-107) mmol/L Carbon Dioxide (22-30) mmol/L Anion Gap (10-20) BUN (9-20) mg/dL Creatinine (0.8-1.5) mg/dL Est GFR ( Amer) Est GFR (Non-Af Amer) POC Glucose (mg/dL) 291 H 269 H (65-110) mg/dL Random Glucose (75-110) mg/dL Calcium (8.6-10.4) mg/dl Total Bilirubin (0.2-1.3) mg/dL AST (17-59) U/L ALT (21-72) U/L Alkaline Phosphatase (38-126) U/L Total Protein (6.3-8.3) g/dL Albumin (3.5-5.0) g/dL Globulin (2.2-3.9) gm/dL Albumin/Globulin Ratio (1.0-2.1) C. difficile Ag & Toxin Negative (NEGATIVE) 10/22/17 10/22/17 10/22/17 Range/Units 06:41 06:40 05:59 WBC 22.0 H (4.8-10.8) K/uL RBC 3.11 L (4.40-5.90) Mil/uL Hgb 8.4 L (12.0-18.0) g/dL Hct 26.9 L (35.0-51.0) % MCV 86.5 (80.0-94.0) fL MCH 26.9 L (27.0-31.0) pg MCHC 31.1 L (33.0-37.0) g/dL RDW 26.9 H (11.5-14.5) % Plt Count 574 H (130-400) K/uL MPV 7.6 (7.2-11.7) fL Neut % (Auto) 83.0 H (50.0-75.0) % Lymph % (Auto) 9.2 L (20.0-40.0) % Twiggs % (Auto) 6.8 (0.0-10.0) % Eos % (Auto) 0.5 (0.0-4.0) % Baso % (Auto) 0.5 (0.0-2.0) % Neut # 18.3 H (1.8-7.0) K/uL Lymph # 2.0 (1.0-4.3) K/uL Twiggs # 1.5 H (0.0-0.8) K/uL Eos # 0.1 (0.0-0.7) K/uL Baso # 0.1 (0.0-0.2) K/uL Neutrophils % (Manual) 80 H (50-75) % Band Neutrophils % 3 H (0-2) % Lymphocytes % (Manual) 9 L (20-40) % Monocytes % (Manual) 7 (0-10) % Basophils % (Manual) 1 (0-2) % Toxic Granulation Present Platelet Estimate Increased H (NORMAL) Plt Clumps, EDTA Present Large Platelets Present Giant Platelets Present Polychromasia Slight Hypochromasia (manual) Slight Poikilocytosis (manual Slight Basophilic Stippling Slight Anisocytosis (manual) Marked Ovalocytes Slight Sodium 137 (132-148) mmol/L Potassium 3.7 (3.6-5.2) mmol/L Chloride 98 (98-107) mmol/L Carbon Dioxide 25 (22-30) mmol/L Anion Gap 17 (10-20) BUN 35 H (9-20) mg/dL Creatinine 2.5 H (0.8-1.5) mg/dL Est GFR ( Amer) 30 Est GFR (Non-Af Amer) 25 POC Glucose (mg/dL) 292 H (65-110) mg/dL Random Glucose 250 H (75-110) mg/dL Calcium 7.9 L (8.6-10.4) mg/dl Total Bilirubin 0.5 (0.2-1.3) mg/dL AST 47 (17-59) U/L ALT 51 (21-72) U/L Alkaline Phosphatase 125 (38-126) U/L Total Protein 7.1 (6.3-8.3) g/dL Albumin 3.2 L (3.5-5.0) g/dL Globulin 3.9 (2.2-3.9) gm/dL Albumin/Globulin Ratio 0.8 L (1.0-2.1) C. difficile Ag & Toxin (NEGATIVE) 10/21/17 Range/Units 23:17 WBC (4.8-10.8) K/uL RBC (4.40-5.90) Mil/uL Hgb (12.0-18.0) g/dL Hct (35.0-51.0) % MCV (80.0-94.0) fL MCH (27.0-31.0) pg MCHC (33.0-37.0) g/dL RDW (11.5-14.5) % Plt Count (130-400) K/uL MPV (7.2-11.7) fL Neut % (Auto) (50.0-75.0) % Lymph % (Auto) (20.0-40.0) % Twiggs % (Auto) (0.0-10.0) % Eos % (Auto) (0.0-4.0) % Baso % (Auto) (0.0-2.0) % Neut # (1.8-7.0) K/uL Lymph # (1.0-4.3) K/uL Tw[place]gs # (0.0-0.8) K/uL Eos # (0.0-0.7) K/uL Baso # (0.0-0.2) K/uL Neutrophils % (Manual) (50-75) % Band Neutrophils % (0-2) % Lymphocytes % (Manual) (20-40) % Monocytes % (Manual) (0-10) % Basophils % (Manual) (0-2) % Toxic Granulation Platelet Estimate (NORMAL) Plt Clumps, EDTA Large Platelets Giant Platelets Polychromasia Hypochromasia (manual) Poikilocytosis (manual Basophilic Stippling Anisocytosis (manual) Ovalocytes Sodium (132-148) mmol/L Potassium (3.6-5.2) mmol/L Chloride (98-107) mmol/L Carbon Dioxide (22-30) mmol/L Anion Gap (10-20) BUN (9-20) mg/dL Creatinine (0.8-1.5) mg/dL Est GFR ( Amer) Est GFR (Non-Af Amer) POC Glucose (mg/dL) 151 H (65-110) mg/dL Random Glucose (75-110) mg/dL Calcium (8.6-10.4) mg/dl Total Bilirubin (0.2-1.3) mg/dL AST (17-59) U/L ALT (21-72) U/L Alkaline Phosphatase (38-126) U/L Total Protein (6.3-8.3) g/dL Albumin (3.5-5.0) g/dL Globulin (2.2-3.9) gm/dL Albumin/Globulin Ratio (1.0-2.1) C. difficile Ag & Toxin (NEGATIVE) Laboratory Results - last 24 hr 10/21/17 10/22/17 10/22/17 23:17 05:59 06:40 WBC 22.0 H RBC 3.11 L Hgb 8.4 L Hct 26.9 L MCV 86.5 MCH 26.9 L MCHC 31.1 L RDW 26.9 H Plt Count 574 H MPV 7.6 Neut % (Auto) 83.0 H Lymph % (Auto) 9.2 L Twiggs % (Auto) 6.8 Eos % (Auto) 0.5 Baso % (Auto) 0.5 Neut # 18.3 H Lymph # 2.0 Twiggs # 1.5 H Eos # 0.1 Baso # 0.1 Neutrophils % (Manual) 80 H Band Neutrophils % 3 H Lymphocytes % (Manual) 9 L Monocytes % (Manual) 7 Basophils % (Manual) 1 Toxic Granulation Present Platelet Estimate Increased H Plt Clumps, EDTA Present Large Platelets Present Giant Platelets Present Polychromasia Slight Hypochromasia (manual) Slight Poikilocytosis (manual Slight Basophilic Stippling Slight Anisocytosis (manual) Marked Ovalocytes Slight Sodium 137 Potassium 3.7 Chloride 98 Carbon Dioxide 25 Anion Gap 17 BUN 35 H Creatinine 2.5 H Est GFR ( Amer) 30 Est GFR (Non-Af Amer) 25 POC Glucose (mg/dL) 151 H Random Glucose 250 H Calcium 7.9 L Total Bilirubin 0.5 AST 47 ALT 51 Alkaline Phosphatase 125 Total Protein 7.1 Albumin 3.2 L Globulin 3.9 Albumin/Globulin Ratio 0.8 L C. difficile Ag & Toxin 10/22/17 10/22/17 10/22/17 06:41 11:48 17:27 WBC RBC Hgb Hct MCV MCH MCHC RDW Plt Count MPV Neut % (Auto) Lymph % (Auto) Twiggs % (Auto) Eos % (Auto) Baso % (Auto) Neut # Lymph # Twiggs # Eos # Baso # Neutrophils % (Manual) Band Neutrophils % Lymphocytes % (Manual) Monocytes % (Manual) Basophils % (Manual) Toxic Granulation Platelet Estimate Plt Clumps, EDTA Large Platelets Giant Platelets Polychromasia Hypochromasia (manual) Poikilocytosis (manual Basophilic Stippling Anisocytosis (manual) Ovalocytes Sodium Potassium Chloride Carbon Dioxide Anion Gap BUN Creatinine Est GFR ( Amer) Est GFR (Non-Af Amer) POC Glucose (mg/dL) 292 H 269 H 291 H Random Glucose Calcium Total Bilirubin AST ALT Alkaline Phosphatase Total Protein Albumin Globulin Albumin/Globulin Ratio C. difficile Ag & Toxin 10/22/17 19:20 WBC RBC Hgb Hct MCV MCH MCHC RDW Plt Count MPV Neut % (Auto) Lymph % (Auto) Twiggs % (Auto) Eos % (Auto) Baso % (Auto) Neut # Lymph # Twiggs # Eos # Baso # Neutrophils % (Manual) Band Neutrophils % Lymphocytes % (Manual) Monocytes % (Manual) Basophils % (Manual) Toxic Granulation Platelet Estimate Plt Clumps, EDTA Large Platelets Giant Platelets Polychromasia Hypochromasia (manual) Poikilocytosis (manual Basophilic Stippling Anisocytosis (manual) Ovalocytes Sodium Potassium Chloride Carbon Dioxide Anion Gap BUN Creatinine Est GFR ( Amer) Est GFR (Non-Af Amer) POC Glucose (mg/dL) Random Glucose Calcium Total Bilirubin AST ALT Alkaline Phosphatase Total Protein Albumin Globulin Albumin/Globulin Ratio C. difficile Ag & Toxin Negative EKG/Cardiology Studies: Cardiology / EKG Studies 10/22/17 14:11 EKG [ELECTROCARDIOGRAM] Stat Comment: Mode Of Transportation: PORTABLE Reason For Exam: svt Isolation: Contact Fingerstick Blood Sugar Results: 291 Critical Care Progress Note - Nutrition Nutrition: Nutrition Category Date Time Status NPO Diet [DIET] Diets 08/21/17 Dinner Active Assessment/Plan - Assessment and Plan (Free Text) Plan: 77 year old male with PMHx CAD/CHF, ESRD and dysfunctional brain injury and prolonged hospital stay, recently transferred to ICU for hypotension and altered mental status Plan: Neuro: Alert,responsive Pulm: Management: * Tracheostomy tolerating 35% trach collar no dyspnea CV: Hypotension --resolved Abrasive Grinder, Dr. Cortés Renal: CKD Dialysis MWF Manager Department, Dr. Miranda, help appreciated HD (MW) via perma cath Procrit 10,000 unit IV MWF Midodrine 5 mg PO TID Endo: DM type 2 ISS- low dose protocol Levemir 8 units AMHS Novolog 5 units AC Heme: Dr. Crawford consulted, help appreciated Hgb stable ID: [id number] - stable continue abx Right plantar pressure ulcer - Dr. Lundberg consulted * offloading heel boots ID, Dr. Zimmer Help appreciated Urine culture 10/14 - yeast Trach asp 10/14 - normal oral diane Blood culture 10/13 - no growth Skin: Sacral Decub - unstageable Dr. Forbes (General Surgery) consulted, help appreciated * no plan for surgical intervention at this time. Electrolytes: monitor s/p HD Prophylaxis DVT: SCDs and Eliquis 2.5mg PO BID GI: pepcid 20 mg PO daily, florastor 250mg PO BID Patient is stable. Will transfer to telemetry.
[2017-10-23] MEDS: (Novolog) Insulin Aspart, Recombinant 100 u/ml 10 ml vial SC SCH ×4 (00:26→18:47)
[2017-10-23] MEDS: Ipratropium 0.02% Inhal Soln (0.5 mg/2.5 ml) UD IH SCH ×3 (01:38→13:02)
--- NOTE | 2017-10-23 01:47 | PN ---
DATE: SUBJECTIVE: The patient remains with trach mask and has been here for many, many days now and has been on antibiotics. He remains afebrile and is still a little tachycardic. PHYSICAL EXAMINATION: VITAL SIGNS: Blood pressure is 97/38 and heart rate is 110. HEENT: Head is atraumatic. He has tracheal mask. LUNGS: Have bilateral rhonchi. HEART: S1, S2, tachycardic. ABDOMEN: Soft, nontender. He has a PEG tube. He has rectal tube, and bowel sounds are present. EXTREMITIES: Have foot protectors on and Venodyne boots, and sacral decubiti, I am unable to evaluate at this time. LABORATORY DATA: White count jumped up from 22, it is 8.4, hemoglobin 26.9, platelet count is 574. ASSESSMENT AND PLAN: We will look up into stool for a Clostridium difficile and he is tachycardiac and he remains with a renal catheter. We will give him 1 dose of cefepime, 1 dose of vancomycin today, and we will get the cultures done. He is already on Maxipime, Diflucan and Florastor at this time. We will follow. Allan Lawrence MD
[2017-10-23 06:39] LABS: BASO # 0.1 K/uL (0.0-0.2); BASO % 0.3 % (0.0-2.0); EOS # 0.3 K/uL (0.0-0.7); EOS % 1.2 % (0.0-4.0); HEMATOCRIT 23.8 % (35.0-51.0); LYMPH # 3.1 K/uL (1.0-4.3); LYMPH % 13.7 % (20.0-40.0); MEAN CELL VOLUME 87.1 fL (80.0-94.0); MEAN CORPUSCULAR HEMOGLOBIN 27.1 pg (27.0-31.0); MEAN CORPUSCULAR HGB CONC 31.2 g/dL (33.0-37.0); MEAN PLATELET VOLUME 7.7 fL (7.2-11.7); MONO # 1.6 K/uL (0.0-0.8); MONO % 6.8 % (0.0-10.0); NRBC % 0.3 % (0.0-2.0); RED CELL DISTRIBUTION WIDTH 27.3 % (11.5-14.5); WHITE BLOOD COUNT 22.7 K/uL (4.8-10.8)
[2017-10-23 06:54] LABS: ALB/GLOB RATIO 0.7 (1.0-2.1); BILIRUBIN,TOTAL 0.5 mg/dL (0.2-1.3); MAGNESIUM 2.1 mg/dL (1.6-2.3); PHOSPHOROUS 3.3 mg/dL (2.5-4.5); POTASSIUM 3.3 mmol/L (3.6-5.2); TOTAL PROTEIN 6.7 g/dL (6.3-8.3)
--- NOTE | 2017-10-23 08:09 | CP.PCM.PN ---
Subjective - Date & Time of Evaluation Date of Evaluation: 10/23/17 Time of Evaluation: 08:05 - Subjective Subjective: Medical Attending Note Patient seen and examined. Patient is nonverbal. No family present at bedside. Unable to review ROS given patient's clinical condition. Discussed with nurse, sacral wound dressing changed this morning. Patient is having diarrhea, in the Flexseal. Cultures were taken when I spoke with the nurse. Objective - Vital Signs/Intake and Output Vital Signs (last 24 hours): Temp Pulse Resp BP Pulse Ox 97.7 F 109 H 33 H 113/35 L 96 10/23/17 00:00 10/23/17 07:01 10/23/17 07:01 10/23/17 07:01 10/23/17 07:01 Intake and Output: 10/23/17 10/23/17 06:59 18:59 Intake Total 60 Output Total 0 Balance 60 - Medications Medications: Current Medications Apixaban (Eliquis) 2.5 mg PO BID [facility] Last Admin: 10/22/17 17:41 Dose: 2.5 mg Ascorbic Acid (Vitamin C 500 Mg Tab) 500 mg PEG DAILY [facility] Last Admin: 10/22/17 09:17 Dose: 500 mg Aspirin (Aspirin Chewable) 81 mg PO DAILY [facility] Last Admin: 10/22/17 09:15 Dose: 81 mg Bisacodyl (Dulcolax) 10 mg [place] ONCE PRN PRN Reason: Constipation Calcitriol (Rocaltrol) 0.25 mcg PEG DAILY [facility] Last Admin: 10/22/17 09:17 Dose: 0.25 mcg Collagenase (Santyl) 1 gm TOP DAILY [facility] Last Admin: 10/22/17 09:22 Dose: 1 applic Epoetin [place] (Procrit) 10,000 unit IV MWF [facility] Last Admin: 10/21/17 12:45 Dose: 10,000 unit Famotidine (Pepcid) 20 mg PO DAILY [facility] Last Admin: 10/22/17 09:17 Dose: 20 mg Cefepime HCl 1 gm/ Dextrose 50 mls @ 100 mls/hr IVPB Q24H [facility] Last Admin: 10/22/17 08:11 Dose: 100 mls/hr Fluconazole (Diflucan Iv 100 Mg/50 Ml Ns) 50 mls @ 100 mls/hr IVPB Q24H [facility] Last Admin: 10/22/17 18:05 Dose: 100 mls/hr Insulin Aspart (Novolog) 0 unit SC Q6 [facility] PRN Reason: Protocol Last Admin: 10/23/17 06:20 Dose: 1 unit Insulin Detemir (Levemir) 8 unit SC AMHS [facility] Last Admin: 10/22/17 21:20 Dose: 8 unit Ipratropium [place] (Atrovent) 0.5 mg IH RQ6 [facility] Last Admin: 10/23/17 07:32 Dose: 0.5 mg Metoprolol Tartrate (Lopressor) 25 mg PEG BIDBS [facility] Last Admin: 10/22/17 17:30 Dose: 25 mg Metronidazole (Flagyl) 500 mg GT Q8 [facility] Last Admin: 10/23/17 06:17 Dose: 500 mg Midodrine (Proamatine) 5 mg PO TID [facility] Last Admin: 10/22/17 17:45 Dose: 5 mg Multivitamins/Vitamin C (Multi-Delyn Liquid) 5 ml PEG DAILY [facility] Last Admin: 10/22/17 09:21 Dose: 5 ml Ondansetron HCl (Zofran Inj) 4 mg IVP Q8H PRN PRN Reason: Nausea/Vomiting Rosuvastatin Calcium (Crestor) 10 mg PO HS [facility] Last Admin: 10/22/17 21:19 Dose: 10 mg Saccharomyces Boulardii (Florastor) 250 mg PO BID [facility] Last Admin: 10/22/17 17:41 Dose: 250 mg - Labs Labs: 10/23/17 06:30 10/23/17 06:30 PT 13.4 SECONDS (9.7-12.2) H 10/14/17 16:30 INR 1.2 10/14/17 16:30 APTT 28 SECONDS (21-34) 10/14/17 16:30 - Constitutional Appears: Chronically Ill - Head Exam Head Exam: NORMAL INSPECTION - Eye Exam Eye Exam: EOMI Additional comments: trach collar c/d/i - ENT Exam ENT Exam: Mucous Membranes Moist - Respiratory Exam Respiratory Exam: Decreased Breath Sounds, Rhonchi. absent: Wheezes - Cardiovascular Exam Cardiovascular Exam: +S1, +S2 - GI/Abdominal Exam GI & Abdominal Exam: Soft, Normal Bowel Sounds. absent: Distended, Firm, Guarding, Rigid, Tenderness, Rebound - Extremities Exam Extremities Exam: absent: Pedal Edema, Tenderness Additional comments: prevalon boots chronic right heel eschar - Neurological Exam Neurological Exam: Awake Assessment and Plan - Assessment and Plan (Free Text) Assessment: (1) Acute Respiratory Failure ARDS Cardiac Arrest Pulmonary Edema Nonstemi Assessment and Plan: * Code Blue on 08/10: asystole, cardiopulmonary resuscitative measures initiated , requiring 3 epis, bicarbonate, ROSC achieved and intubated and brought to the ICU. 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 * Started on Midrodrine 5mg PO TID * Restart Lopressor 12.5mg PO BID 10/20/17 * Pulmonary: Dr Mena (Dr. Jeffers covering until 09/04/17)-->help appreciated * Cardiology: Dr. Cortés on board-->help appreciated * GI (Dr. Wills) on board-->help appreciated * S/P Tracheostomy 08/22 * S/P Peg tube placement 08/25 * s/p insertion of right posterior chest tube 08/19-->removed 08/24/17 * Passy Flex Trach placed 09/15 * There was consideration for possible thoracentesis of left side pleural effusion, evaluated by IR, there is no fluid to drain per Dr. Gross * Chest xray (08/26): right arm PICC is seen with the tip of distal subclavian vein. PICC may be used * Chest Xray (09/20/17): lines and tubes stable position, left-sided pacemaker, moderate venous congestion, left basilar opacity with associated small left pleural effusion, Cardiomegaly. Prominent aorta, degenrative changes in spine and shoulders * Medications: * Acetylcysteine 20% 4ml INH RQ6H * Duoneb 3ml INH RQ6H * Aspirin 81mg PO daily * Eliquis 2.5mg PO bid * restart Lopressor 12.5mg PO bid 10/20/17--> HOLD SBP<100 and HR<60 * Pulmonary and cardiology following (2) Abnormal Stress Test History of AICD History of Coronary Artery Disease Assessment and Plan: * Cardiology (Dr. Cortés) on board-->help appreciated * TSH: 1.16; T4: 1.53 * Echocardiogram (08/08/17): left ventricle systolic function is severely impaired. EF: 25-30%; global hypokinesis of left ventricle mild aortic regurgitation. Mitral regurgitation is moderate. Moderate-severe pulmonary hypertension * Plan was for cardiac catheterization; delayed due to acute renal failure; Attempted gentle hydration and mucomyst on 08/09 to optimize prior to cath * On 08/10, patient was in asystole, ACLS protocol, ROSC achieved, intubated and transfered to the ICU. Patient in acute pulmonary edema. * Patient hospitalized and require to and from ICU twice during this admission * Cardiac cath postponed at this time * Medications: * Acetylcysteine 20% 4ml INH RQ6H * Duoneb 3ml INH RQ4H * Aspirin 81mg PO daily * Eliquis 2.5mg PO bid * restart Lopressor 12.5mg PO bid 10/20/17--> HOLD SBP<100 and HR<60 * Crestor 10mg POqHS * Lisinopril 5mg PO daily (3) Atrial flutter Assessment and Plan: * Cardiology (Dr. Cortés) on board-->help appreciated * Refractory to Lopressor/Cardizem IVP * Aspirin 81mg Po daily * c/w Eliquis 2.5mg PO bid * restart Lopressor 12.5mg PO bid 10/20/17 Status: Resolved (4) Acute on Chronic Systolic CHF exacerbation Assessment and Plan: * Cardiology (Dr. Cortés) on board-->help appreciated * Transferred to the ICU on 08/10 following cardiac arrest and intubation. * Echocardiogram (08/08/17): left ventricular systolic function is severely impaired. EF: 25-30%; global hypokinesis of left ventricle mild aortic regurgitation. Mitral regurgitation is moderate. Moderate-severe pulmonary hypertension * Medications: * Aspirin 81mg PO daily * restart Lopressor 12.5mg PO bid 10/20/17 * Lisinopril 5mg PO daily * Crestor 10mg POqHS Status: Stable (5) Leukocytosis Assessment and Plan: * Infectious Disease (Dr. Lawrence) on board-->help appreciated * Decreasing * Abnormal UA wit pyuria/hematuria * Heel eschar-->Podiatry on board * patient is on Cefepime 1 gram IV Q24H (active 10/12/17), Aztreonam 1 gram IV Q 24H (active since 10/13/17), and d/c Zyvox 600mg PO BID (active since 10/14/17 ), Diflucan 100mg IV Q 24 (active since 10/14/17) and Flagyl 500mg GT Q 8H * Etiology: pneumonia, and sacral decub; patient has alot of secretions; nursing and respiratory are suctioning * Pleural Fluid 08/19/17 did not show any growth * Blood cultures (09/13): no growth X5 days X2 * Blood cultures (09/07) during dialysis: no growth X5 days X2 * UA and urine culture (08/27): Yeast Species. * UA and urine culture (09/13): Yeast Species. * Urine culture (09/20): Yeast species * Urine culture (10/06/17): No growth * Urine culture (10/14/17): Yeast species * Sputum (10/14/17): Normal oral diane * MRSA (10/15/17): MRSA not detected * 09/07/17 Legionella Culture: negative * 09/07/17 Mycobacteria: negative * 09/07/17 Sputum: Enterocloace Bacter; yeast * Blood cultures (09/13): no growth X5 days X2 * Blood cultures (09/07) during dialysis: no growth X5 days X2 * Sacral Ulcer (09/14/17): VRE and Reny Albicans * Sacral Ulcer (09/15/17): VRE and Reny Albicans * Sacral Ulcer (09/20/17): VRE and Reny Albicans * Sacral Ulcer (09/30/17): Enterobacter Aerogenes-->Sensitive Cefepime IV * Blood cultures (10/13/17): no growth for 5 days X2 * Bone Scan performed 09/17/17 to check for Osteomyelitis at the Sacrum: negative for osteomyelitis * c/w Tigecycline (09/16/17): which will cover the VRE in Sacral Wound Culture 09/14/17 and repeat on 09/20/17--to finished 10/05/17 * c/w Diflucan 200 mg PO 1x/day (09/13/17-10/16/17: which will cover with Yeast in the Sputum, Urine, and Sacral Wound Culture-->stopped on 10/06/17; restarted 10/14/17- present * Procalcitionin: 8.60 (09/06/17)-->5.80 (09/20)-->2.86 (10/04)--->4.91 (10/12) * Per ID, Patient started on Cefepime 1 gram IV Q24H (active 10/12/17), Aztreonam 1 gram IV Q 24H (active since 10/13/17), and d/c Zyvox 600mg PO BID by ID on 10/18, and on Flagyl 500mg GT Q8H (active since 10/16/17) Status: Acute (6) Pneumonia Assessment and Plan: * Pulmonary (Dr. Mena) on board-->help appreciated * Infectious Disease (Dr. Lawrence)-->help appreciated * Rapid A strep, Influenza A and B studies, Urine Legionella, Mycoplasma studies = Negative * Florastor 250mg PO bid * 08/07/17: +Strep Pneumoniae in the urine * Meropenem 500mg IV Q 8 hours (08/14/17 through 08/18/17) and Zosyn 2.25 mg IV Q6H (08/13/17 through 08/18/17) * Cefepime 1 gm IV Q24H: started on 08/19/17 and was discontinued by ID Dr. Lawrence on 08/30/17: monitor vitals and labs * Restarted on 10/12/17 * s/p right posterior chest tube 08/19-08/24 * Sputum Culture 08/19/17 shows No growth * Pleural fluid 08/19/17: No growth * 09/07/17 Sputum: Enterocloace Bacter and Yeast Species: See Antibiotic treatment in previous Assessment and Plan * Sputum 09/10/17 shows NO AFB * Procalcitionin: 8.60 (09/06/17)-->5.80 (09/20)-->2.86 (10/04)--->4.91 (10/12) * Patient started on Cefepime 1 gram IV Q24H (active 10/12/17), Aztreonam 1 gram IV Q 24H (active since 10/13/17), d/c Zyvox 600mg PO BID by ID on 10/18, and on Flagyl 500mg GT Q8H (active since 10/16/17) Status: Acute (7) HTN (hypertension) Assessment and Plan: * 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 Miranda (nephrology) consulted on the case * Hx of CKD-->Started on dialysis 08/15/17 * Kurtis catheter placed and removed 08/22 * s/p Right Chest Permcath 08/22 * Patient is on dialysis --; oliguric * Phoslo 1334mg GT TID * Epoetin 10,000 unit IV MWF * Requiring Albumin during dialysis sessions Status: Chronic (9) Diabetes mellitus Assessment and Plan: * Accuchecks Q6H * HgbA1c 8.4 * Levemir 8 unit AM and HS * Novolog subq 6H (sliding scale) * On vital 1.2 @ 20ml/hr with goal rate 70ml/hr starting 10/20 due to diarrhea episodes (10) HLD (hyperlipidemia) Assessment and Plan: * LFTS have normalized; will restart statin 09/20/17 * Crestor 10mg POqHS Status: Chronic (11) Anemia Assessment and Plan: * Heme-oncology (Dr. Giles bender) on board-->help appreciated * Likely iron deficiency anemia based on prior admissions * Ferritin 27.4, Iron 22, TIBC 322, % Saturation 7 * Ferric Sodium Gluconate 125mg IVPB daily (active 08/08-08/16) * Procrit 10,000 units -- * Monitor Hgb/Hct: stable Status: Chronic (12) History of DVT (deep vein thrombosis) Assessment and Plan: * Patient was previously on Eliquis for a prior history of DVT. * Repeat dopplers 08/09/17 are negative for DVT * Off Heparin Drip 08/17/17 * Started Eliquis 2.5mg PO BID for atrial flutter and history of DVT Status: Chronic (13) UTI Assessment and Plan: * Infectious disease (Dr. Lawrence) on board-->help appreciated * Exchange jaquez out and repeat urine cultures * Urine Culture 08/12/17 showed Gram Negative Rods: NO identification and NO sensitivities were performed * Meropenem 500mg IV Q 12hours (active since 08/14/17 through 08/18/17) to cover for UTI per ID * Repeat Urine Culture 08/18/17 shows NO growth * 08/25: reculture in light of leukocytosis * 08/27: pending urine studies * 08/30: Urine Culture 08/27/17 showed Yeast Species but no antifungal at that time secondary to recent history of Elevated LFTs * Urine Culture 09/13/17 showed Yeast Species: completed Diflucan on 10/06/17 * Urine culture (10/06/17): No growth * Urine culture (10/14/17): yeast Status: Chronic (14) Confusion; Alzheimer's Dementia Assessment and Plan: * Per daughter, patient has been getting bouts of confusion over the past year but appears at baseline. Patient has not seen formal neurology as outpatient per daughter. Per , prior to event, noted Alzheimers' disease dx one year ago * CT head w/o contrast (08/10/17):acute os subacute lacune infarct is not excluded in the left basal ganglia inferiorly with definitive chronic lacune identified in the right basal ganglia superiorly. No acute or subacute lobar brain infarction is appreciable by standard CT criteria. Mild age-related neuro degenerative changes are identifed. No acute intracranial hemorrhage or mass is identified throughout * 08/26: Off Sedation-->patient moves all extremities randomly but does not follow directions * 08/27: off sedation-->patient is very calm, smiles at his * 08/28: off sedation-->patient is very calm * 10/14: AIRCRAFT INSTRUMENT ENGINEER for hypotension and lethargy; CT Head was repeated given patient is on Eliquis: * CT Head w/o contrast (10/14/17): no intracranial mass, hemorrhage, or evidence of acute infarct. 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 Old right external capsule ischemic change. Age related atrophy and chronic microvascular ischemic change Status: Chronic (15) Unstageable Sacral Ulcer, Left Ear Auricle Ulcer, Right Heal Ulcer Assessment and Plan: * Wound care on board * WOUND CARE [id number] patients sacral ulcer. Base softening up. Must continue medi-honey (nickel thick) then cover with a bordered dressing to be done daily. Patient must be repositioned frequently to optimize offloading of sacral region. Right heel is dark purple in color. Must continue to elevate both heels at all times to optimize heel offloading. Hemoglobin-9.6, Marshal of 14. Patient continues to be at risk for skin breakdown. will continue to follow. 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 * Sacral Ulcer (09/15/17): VRE and Reny Albicans * Sacral Ulcer (09/20/17): VRE and Reny Albicans * Sacral Ulcer (09/30/17): Enterobacter Aerogenes-->Sensitive Cefepime IV * Bone Scan performed 09/17/17 to check for Osteomyelitis at the Sacrum: negative for osteomyeliti * Daily wound care and dressing change by medicine team; healing appropriately Antibiotics * c/w Tigecycline (09/16/17: which will cover the VRE in Sacral Wound Culture and repeat on 09/20/17-->PER ID, d/c 10/15/17 * c/w Diflucan 200 mg PO 1x/day (09/13/17; Day 20): which will cover with Yeast in the Sputum, Urine, and Sacral Wound Culture--> PER ID, D/c 10/06/17; restarted on 10/14/17 * Procalcitionin: 8.60 (09/06/17)-->5.80 (09/20)-->2.86 (10/04)--->4.91 (10/12) * Patient started on Cefepime 1 gram IV Q24H (active 10/12/17), Aztreonam 1 gram IV Q 24H (active since 10/13/17), d/c Zyvox 600mg PO BID by ID on 10/18, and on Flagyl 500mg GT Q8H (active since 10/16/17) Status: Acute (16) Elevated LFTs Assessment and Plan: * Have normalized * Currently off Diflucan since 10/06/17; restart 10/14/17 * Crestor 10mg POqHS (17). Diarrhea * C. Diff negative X3 * Stool ova and parasite negative * Stool leukocytes negative * On vital 1.2 @ 20ml/hr with goal rate 70ml/hr on 10/20 * 10/22: patient continues to have diarrhea-->Patient was recultured (18). Hyponatremia-->resolved (). Prophylactic measure Assessment and Plan: * Pepcid 20mg PO daily * Start Eliquis 2.5mg PO BID * s/p peg placement 08/25 * s/p trachesostomy 08/22 * s/p Permcath placement 08/22 removal Kurtis catheter * s/p right posterior chest tube 08/19-->removed 08/24 * s/p Right Arm PICC 08/26 * Passy Flex Trach placed 09/15 * (Jovita Serrano): -->number provided to the nurse- ->consented for peg placement; discussed about LTAC 08/26 * Discussed with and grand son at bedside today * Spoke with Dr. Pickard, PMD regarding patient's hospitalization up until 08/26 Disposition: * Pending outpatient rehab/dialysis placement; ongoing insurance talks * Monitor patient's diarrhea and sacral wound * Infectious disease adjusted medications on 10/14 ([employer]IR[employer] INSTRUMENT ENGINEER). Patient started on Cefepime 1 gram IV Q24H (active 10/12/17), Aztreonam 1 gram IV Q 24H (active since 10/13/17), d/c Zyvox 600mg PO BID by ID on 10/18, and on Flagyl 500mg GT Q8H (active since 10/16/17). * restart Lopressor 25 mg PO bid 10/22/17--> HOLD SBP<100 and HR<60
[2017-10-23] MEDS: Insulin Detemir 100 units/ml Vial (Levemir) SC SCH ×2 (09:34→21:46)
[2017-10-23] MEDS: Saccharomyces Boulardi 250 mg Cap PO SCH ×2 (09:37→18:46)
[2017-10-23] MEDS: Multiple Vitamins Oral Solution PEG SCH (09:37)
[2017-10-23] MEDS: Collagenase 250 Units/gm Ointment(30 gm) TOP SCH (09:37)
--- NOTE | 2017-10-23 12:14 | CP.PCM.PN ---
Subjective - Date & Time of Evaluation Date of Evaluation: 10/23/17 Time of Evaluation: 07:00 - Subjective Subjective: Surgery- Dr. Forbes Pt S&E at bedside this AM. per nursing, no acute events overnight. Pt no longer vomiting, tube feed rate increased. Sacrab decb dressing changed by wound care this AM. Pt non-verbal during this encounter Objective - Vital Signs/Intake and Output Vital Signs (last 24 hours): Temp Pulse Resp BP Pulse Ox 97.7 F 95 H 27 H 89/31 L 100 10/23/17 00:00 10/23/17 12:01 10/23/17 12:01 10/23/17 12:01 10/23/17 12:01 Intake and Output: 10/23/17 10/23/17 06:59 18:59 Intake Total 60 Output Total 0 Balance 60 - Medications Medications: Current Medications Apixaban (Eliquis) 2.5 mg PO BID [facility] Last Admin: 10/23/17 09:41 Dose: 2.5 mg Ascorbic Acid (Vitamin C 500 Mg Tab) 500 mg PEG DAILY [facility] Last Admin: 10/23/17 09:37 Dose: 500 mg Aspirin (Aspirin Chewable) 81 mg PO DAILY [facility] Last Admin: 10/23/17 09:34 Dose: 81 mg Bisacodyl (Dulcolax) 10 mg [place] ONCE PRN PRN Reason: Constipation Calcitriol (Rocaltrol) 0.25 mcg PEG DAILY [facility] Last Admin: 10/23/17 09:36 Dose: 0.25 mcg Collagenase (Santyl) 1 gm TOP DAILY [facility] Last Admin: 10/23/17 09:37 Dose: 1 applic Epoetin Chencho (Procrit) 10,000 unit IV MWF [facility] Last Admin: 10/21/17 12:45 Dose: 10,000 unit Famotidine (Pepcid) 20 mg PO DAILY [facility] Last Admin: 10/23/17 09:37 Dose: 20 mg Cefepime HCl 1 gm/ Dextrose 50 mls @ 100 mls/hr IVPB Q24H [facility] Last Admin: 10/23/17 09:00 Dose: 100 mls/hr Fluconazole (Diflucan Iv 100 Mg/50 Ml Ns) 50 mls @ 100 mls/hr IVPB Q24H [facility] Last Admin: 10/22/17 18:05 Dose: 100 mls/hr Insulin Aspart (Novolog) 0 unit SC Q6 [facility] PRN Reason: Protocol Last Admin: 10/23/17 12:09 Dose: 3 unit Insulin Detemir (Levemir) 8 unit SC AMHS [facility] Last Admin: 10/23/17 09:34 Dose: 8 unit Ipratropium [place] (Atrovent) 0.5 mg IH RQ6 [facility] Last Admin: 10/23/17 07:32 Dose: 0.5 mg Metoprolol Tartrate (Lopressor) 25 mg PEG BIDBS [facility] Last Admin: 10/23/17 08:00 Dose: 25 mg Metronidazole (Flagyl) 500 mg GT Q8 [facility] Last Admin: 10/23/17 06:17 Dose: 500 mg Midodrine (Proamatine) 5 mg PO TID [facility] Last Admin: 10/23/17 09:35 Dose: 5 mg Multivitamins/Vitamin C (Multi-Delyn Liquid) 5 ml PEG DAILY [facility] Last Admin: 10/23/17 09:37 Dose: 5 ml Ondansetron HCl (Zofran Inj) 4 mg IVP Q8H PRN PRN Reason: Nausea/Vomiting Rosuvastatin Calcium (Crestor) 10 mg PO HS [facility] Last Admin: 10/22/17 21:19 Dose: 10 mg Saccharomyces Boulardii (Florastor) 250 mg PO BID [facility] Last Admin: 10/23/17 09:37 Dose: 250 mg - Labs Labs: 10/23/17 06:30 10/23/17 06:30 PT 13.4 SECONDS (9.7-12.2) H 10/14/17 16:30 INR 1.2 10/14/17 16:30 APTT 28 SECONDS (21-34) 10/14/17 16:30 - Constitutional Appears: Non-toxic, No Acute Distress - Head Exam Head Exam: ATRAUMATIC - Eye Exam Eye Exam: EOMI - ENT Exam ENT Exam: Mucous Membranes Moist - Respiratory Exam Respiratory Exam: NORMAL BREATHING PATTERN. absent: Accessory Muscle Use, Respiratory Distress - Cardiovascular Exam Cardiovascular Exam: +S1, +S2. absent: Bradycardia, Tachycardia - GI/Abdominal Exam GI & Abdominal Exam: Distended, Soft. absent: Firm, Guarding, Rigid, Tenderness - Extremities Exam Extremities Exam: Pedal Edema. absent: Calf Tenderness - Neurological Exam Neurological Exam: Awake - Psychiatric Exam Psychiatric exam: Normal Affect - Skin Skin Exam: Intact, Warm Assessment and Plan - Assessment and Plan (Free Text) Assessment: 77M w/ stage 4 sacral decubitus ulcer - Continue IV abx - Daily dressing changes w/ Santyl - Wound care - No surgical intervention at this time - Discussed w/ Dr. Forbes surgical attending Linden Vicente PGY1
--- NOTE | 2017-10-23 17:24 | RAD ---
HISTORY: Intubated. COMPARISON: Comparison made with chest radiograph 10/22/2017. FINDINGS: In situ tracheostomy tube in good position. No change right subclavian dialysis catheter with tips in the SVC/RA junction. . There appears to be a right-sided PICC line the tip of which terminates in the right axillary region LUNGS: Mild bibasilar atelectasis felt to be present. Questionable small left-sided effusion. PLEURA: As above. No apparent pneumothorax. CARDIOVASCULAR: Cardiomegaly. No change single lead pacemaker/ defibrillator. OSSEOUS STRUCTURES: No significant abnormalities. VISUALIZED UPPER ABDOMEN: Normal. OTHER FINDINGS: None. IMPRESSION: Tracheostomy tube and right subclavian dialysis catheter unchanged. . Apparent in situ PICC line, tip of which appears to terminate in the right axillary region Mild bibasilar atelectasis felt to be present. Questionable small left-sided effusion. . Cardiomegaly.
[2017-10-23] MEDS: Fluconazole IV 100mg/50 ml NS 50 ML IVPB SCH (18:44)
--- NOTE | 2017-10-23 19:51 | CP.PCM.PN ---
Subjective - Date & Time of Evaluation Date of Evaluation: 10/23/17 Time of Evaluation: 19:50 - Subjective Subjective: Patient seen and evaluated Not in distress Slightly lethargic Continue current meds Objective - Vital Signs/Intake and Output Vital Signs (last 24 hours): Temp Pulse Resp BP Pulse Ox 97.7 F 114 H 24 97/42 L 100 10/23/17 00:00 10/23/17 19:03 10/23/17 19:03 10/23/17 19:03 10/23/17 19:03 Intake and Output: 10/23/17 10/24/17 18:59 06:59 Intake Total 720 Output Total 101 Balance 619 - Medications Medications: Current Medications Apixaban (Eliquis) 2.5 mg PO BID [facility] Last Admin: 10/23/17 18:46 Dose: 2.5 mg Ascorbic Acid (Vitamin C 500 Mg Tab) 500 mg PEG DAILY [facility] Last Admin: 10/23/17 09:37 Dose: 500 mg Aspirin (Aspirin Chewable) 81 mg PO DAILY [facility] Last Admin: 10/23/17 09:34 Dose: 81 mg Bisacodyl (Dulcolax) 10 mg [place] ONCE PRN PRN Reason: Constipation Calcitriol (Rocaltrol) 0.25 mcg PEG DAILY [facility] Last Admin: 10/23/17 09:36 Dose: 0.25 mcg Collagenase (Santyl) 1 gm TOP DAILY [facility] Last Admin: 10/23/17 09:37 Dose: 1 applic Epoetin Chen[place] (Procrit) 10,000 unit IV MWF [facility] Last Admin: 10/21/17 12:45 Dose: 10,000 unit Famotidine (Pepcid) 20 mg PO DAILY [facility] Last Admin: 10/23/17 09:37 Dose: 20 mg Cefepime HCl 1 gm/ Dextrose 50 mls @ 100 mls/hr IVPB Q24H [facility] Last Admin: 10/23/17 09:00 Dose: 100 mls/hr Fluconazole (Diflucan Iv 100 Mg/50 Ml Ns) 50 mls @ 100 mls/hr IVPB Q24H [facility] Last Admin: 10/23/17 18:44 Dose: 100 mls/hr Insulin Aspart (Novolog) 0 unit SC Q6 [facility] PRN Reason: Protocol Last Admin: 10/23/17 18:47 Dose: 3 unit Insulin Detemir (Levemir) 8 unit SC AMHS [facility] Last Admin: 10/23/17 09:34 Dose: 8 unit Ipratropium [place] (Atrovent) 0.5 mg IH RQ6 [facility] Last Admin: 10/23/17 13:02 Dose: 0.5 mg Metoprolol Tartrate (Lopressor) 25 mg PEG BIDBS [facility] Last Admin: 10/23/17 16:00 Dose: 25 mg Metronidazole (Flagyl) 500 mg GT Q8 [facility] Last Admin: 10/23/17 14:30 Dose: 500 mg Midodrine (Proamatine) 5 mg PO TID [facility] Last Admin: 10/23/17 18:49 Dose: 5 mg Multivitamins/Vitamin C (Multi-Delyn Liquid) 5 ml PEG DAILY [facility] Last Admin: 10/23/17 09:37 Dose: 5 ml Ondansetron HCl (Zofran Inj) 4 mg IVP Q8H PRN PRN Reason: Nausea/Vomiting Rosuvastatin Calcium (Crestor) 10 mg PO HS [facility] Last Admin: 10/22/17 21:19 Dose: 10 mg Saccharomyces Boulardii (Florastor) 250 mg PO BID [facility] Last Admin: 10/23/17 18:46 Dose: 250 mg - Labs Labs: 10/23/17 06:30 10/23/17 06:30 PT 13.4 SECONDS (9.7-12.2) H 10/14/17 16:30 INR 1.2 10/14/17 16:30 APTT 28 SECONDS (21-34) 10/14/17 16:30
[2017-10-24] MEDS: (Novolog) Insulin Aspart, Recombinant 100 u/ml 10 ml vial SC SCH ×4 (00:47→18:33)
[2017-10-24] MEDS: Ipratropium 0.02% Inhal Soln (0.5 mg/2.5 ml) UD IH SCH ×4 (02:58→20:19)
[2017-10-24 06:48] LABS: BASO % 0.2 % (0.0-2.0); EOS # 0.2 K/uL (0.0-0.7); EOS % 0.9 % (0.0-4.0); HEMATOCRIT 20.9 % (35.0-51.0); LYMPH # 2.5 K/uL (1.0-4.3); LYMPH % 10.5 % (20.0-40.0); MEAN CELL VOLUME 87.9 fL (80.0-94.0); MEAN CORPUSCULAR HGB CONC 31.9 g/dL (33.0-37.0); MONO # 1.1 K/uL (0.0-0.8); MONO % 4.6 % (0.0-10.0); NRBC % 0.3 % (0.0-2.0); RED CELL DISTRIBUTION WIDTH 27.4 % (11.5-14.5); WHITE BLOOD COUNT 23.7 K/uL (4.8-10.8)
[2017-10-24 07:24] LABS: ALB/GLOB RATIO 0.9 (1.0-2.1); BILIRUBIN,TOTAL 0.8 mg/dL (0.2-1.3); CALCIUM 7.6 mg/dl (8.6-10.4); POTASSIUM 3.5 mmol/L (3.6-5.2); TOTAL PROTEIN 5.6 g/dL (6.3-8.3)
[2017-10-24] MEDS: Saccharomyces Boulardi 250 mg Cap PO SCH ×2 (09:05→18:34)
[2017-10-24] MEDS: Insulin Detemir 100 units/ml Vial (Levemir) SC SCH ×2 (09:06→21:22)
[2017-10-24] MEDS: Multiple Vitamins Oral Solution PEG SCH (09:07)
--- NOTE | 2017-10-24 10:26 | CP.PCM.PN ---
Subjective - Date & Time of Evaluation Date of Evaluation: 10/24/17 Time of Evaluation: 10:23 - Subjective Subjective: appears same- alert now on trach collar Hg droipped to 6.6; will transfuse 2 units prbcs with HD today rhythm NSR; has paroxysmal AFib - on eliquis stools have been dark BP often low wit [id number] now Objective - Vital Signs/Intake and Output Vital Signs (last 24 hours): Temp Pulse Resp BP Pulse Ox 99 F 121 H 22 120/35 L 100 10/24/17 04:00 10/24/17 07:01 10/24/17 07:01 10/24/17 09:01 10/24/17 07:01 Intake and Output: 10/24/17 10/24/17 06:59 18:59 Intake Total 920 Output Total 100 Balance 820 - Medications Medications: Current Medications Apixaban (Eliquis) 2.5 mg PO BID [facility] Last Admin: 10/24/17 09:04 Dose: 2.5 mg Ascorbic Acid (Vitamin C 500 Mg Tab) 500 mg PEG DAILY [facility] Last Admin: 10/24/17 09:08 Dose: 500 mg Aspirin (Aspirin Chewable) 81 mg PO DAILY [facility] Last Admin: 10/24/17 09:11 Dose: 81 mg Bisacodyl (Dulcolax) 10 mg [place] ONCE PRN PRN Reason: Constipation Calcitriol (Rocaltrol) 0.25 mcg PEG DAILY [facility] Last Admin: 10/24/17 09:08 Dose: 0.25 mcg Collagenase (Santyl) 1 gm TOP DAILY [facility] Last Admin: 10/23/17 09:37 Dose: 1 applic Epoetin [place] (Procrit) 10,000 unit IV MWF [facility] Last Admin: 10/21/17 12:45 Dose: 10,000 unit Famotidine (Pepcid) 20 mg PO DAILY [facility] Last Admin: 10/24/17 09:07 Dose: 20 mg Cefepime HCl 1 gm/ Dextrose 50 mls @ 100 mls/hr IVPB Q24H [facility] Last Admin: 10/24/17 09:01 Dose: 100 mls/hr Fluconazole (Diflucan Iv 100 Mg/50 Ml Ns) 50 mls @ 100 mls/hr IVPB Q24H [facility] Last Admin: 10/23/17 18:44 Dose: 100 mls/hr Insulin Aspart (Novolog) 0 unit SC Q6 [facility] PRN Reason: Protocol Last Admin: 10/24/17 07:07 Dose: 5 unit Insulin Detemir (Levemir) 8 unit SC AMHS [facility] Last Admin: 10/24/17 09:06 Dose: 8 unit Ipratropium [place] (Atrovent) 0.5 mg IH RQ6 [facility] Last Admin: 10/24/17 07:30 Dose: 0.5 mg Metoprolol Tartrate (Lopressor) 25 mg PEG BIDBS [facility] Last Admin: 10/24/17 09:01 Dose: 25 mg Metronidazole (Flagyl) 500 mg GT Q8 [facility] Last Admin: 10/24/17 07:07 Dose: 500 mg Midodrine (Proamatine) 5 mg PO TID [facility] Last Admin: 10/24/17 09:07 Dose: 5 mg Multivitamins/Vitamin C (Multi-Delyn Liquid) 5 ml PEG DAILY [facility] Last Admin: 10/24/17 09:07 Dose: 5 ml Ondansetron HCl (Zofran Inj) 4 mg IVP Q8H PRN PRN Reason: Nausea/Vomiting Rosuvastatin Calcium (Crestor) 10 mg PO HS [facility] Last Admin: 10/23/17 21:47 Dose: 10 mg Saccharomyces Boulardii (Florastor) 250 mg PO BID [facility] Last Admin: 10/24/17 09:05 Dose: 250 mg - Labs Labs: 10/24/17 06:20 10/24/17 06:20 PT 13.4 SECONDS (9.7-12.2) H 10/14/17 16:30 INR 1.2 10/14/17 16:30 APTT 28 SECONDS (21-34) 10/14/17 16:30 - Constitutional Appears: No Acute Distress, Chronically Ill - Head Exam Head Exam: ATRAUMATIC, NORMAL INSPECTION - Eye Exam Eye Exam: EOMI, Normal appearance - Neck Exam Neck Exam: Normal Inspection. absent: Tenderness - Respiratory Exam Respiratory Exam: Rhonchi, NORMAL BREATHING PATTERN - Cardiovascular Exam Cardiovascular Exam: Tachycardia, +S1 - GI/Abdominal Exam GI & Abdominal Exam: Soft. absent: Tenderness - Extremities Exam Extremities Exam: Normal Inspection. absent: Tenderness - Neurological Exam Neurological Exam: Alert, Motor Sensory Deficit - Skin Skin Exam: Dry, Warm Assessment and Plan (1) Acute on chronic renal failure Status: Resolved (2) CAD (coronary artery disease) Status: Chronic (3) CHF exacerbation Status: Chronic (4) Type 2 diabetes mellitus with diabetic nephropathy Status: Acute (5) Cardiorenal disease Status: Acute (6) ESRD (end stage renal disease) Status: Acute - Assessment and Plan (Free Text) Plan: transfuse 2 units prbcs / dialysis today minimal UF as BP often low eliquis to be held by medicine
--- NOTE | 2017-10-24 11:23 | RAD ---
HISTORY: intubated COMPARISON: Portable chest 10/23/2017. FINDINGS: LUNGS: Tracheostomy tube, prominent right center venous dialysis catheter, midline right PICC and unipolar permanent cardiac pacemaker/ defibrillator again identified in position. No interval left basilar infiltrate or atelectasis. Limited medial right basilar patchy atelectasis or infiltrate is questioned. PLEURA: No significant pleural effusion identified, no pneumothorax apparent. CARDIOVASCULAR: Normal. OSSEOUS STRUCTURES: No significant abnormalities. VISUALIZED UPPER ABDOMEN: Normal. OTHER FINDINGS: None. IMPRESSION: Questionable limited interval atelectasis or infiltrate medial right base with remaining lung buchanan clear. No additional suspicious interval findings.
--- NOTE | 2017-10-24 11:46 | CP.PCM.PN ---
Subjective - Date & Time of Evaluation Date of Evaluation: 10/24/17 Time of Evaluation: 12:23 - Subjective Subjective: General Surgery Note for Dr. Forbes Patient seen and examined at bedside. No acute event overnight. Patient is non- verbal. He does reacts to verbal and tactile stimuli. Follow commands occasionally. Objective - Vital Signs/Intake and Output Vital Signs (last 24 hours): Temp Pulse Resp BP Pulse Ox 99.5 F 100 H 12 117/80 100 10/24/17 08:00 10/24/17 10:46 10/24/17 10:46 10/24/17 10:46 10/24/17 10:46 Intake and Output: 10/24/17 10/24/17 06:59 18:59 Intake Total 1100 Output Total 100 Balance 1000 - Medications Medications: Current Medications Apixaban (Eliquis) 2.5 mg PO BID [facility] Last Admin: 10/24/17 09:04 Dose: 2.5 mg Ascorbic Acid (Vitamin C 500 Mg Tab) 500 mg PEG DAILY [facility] Last Admin: 10/24/17 09:08 Dose: 500 mg Aspirin (Aspirin Chewable) 81 mg PO DAILY [facility] Last Admin: 10/24/17 09:11 Dose: 81 mg Bisacodyl (Dulcolax) 10 mg [place] ONCE PRN PRN Reason: Constipation Calcitriol (Rocaltrol) 0.25 mcg PEG DAILY [facility] Last Admin: 10/24/17 09:08 Dose: 0.25 mcg Collagenase (Santyl) 1 gm TOP DAILY [facility] Last Admin: 10/23/17 09:37 Dose: 1 applic Epoetin [place] (Procrit) 10,000 unit IV MWF [facility] Last Admin: 10/21/17 12:45 Dose: 10,000 unit Famotidine (Pepcid) 20 mg PO DAILY [facility] Last Admin: 10/24/17 09:07 Dose: 20 mg Cefepime HCl 1 gm/ Dextrose 50 mls @ 100 mls/hr IVPB Q24H [facility] Last Admin: 10/24/17 09:01 Dose: 100 mls/hr Fluconazole (Diflucan Iv 100 Mg/50 Ml Ns) 50 mls @ 100 mls/hr IVPB Q24H [facility] Last Admin: 10/23/17 18:44 Dose: 100 mls/hr Insulin Aspart (Novolog) 0 unit SC Q6 [facility] PRN Reason: Protocol Last Admin: 10/24/17 07:07 Dose: 5 unit Insulin Detemir (Levemir) 8 unit SC AMHS [facility] Last Admin: 10/24/17 09:06 Dose: 8 unit Ipratropium [place] (Atrovent) 0.5 mg IH RQ6 [facility] Last Admin: 10/24/17 07:30 Dose: 0.5 mg Metoprolol Tartrate (Lopressor) 25 mg PEG BIDBS [facility] Last Admin: 10/24/17 09:01 Dose: 25 mg Metronidazole (Flagyl) 500 mg GT Q8 [facility] Last Admin: 10/24/17 07:07 Dose: 500 mg Midodrine (Proamatine) 5 mg PO TID [facility] Last Admin: 10/24/17 09:07 Dose: 5 mg Multivitamins/Vitamin C (Multi-Delyn Liquid) 5 ml PEG DAILY [facility] Last Admin: 10/24/17 09:07 Dose: 5 ml Ondansetron HCl (Zofran Inj) 4 mg IVP Q8H PRN PRN Reason: Nausea/Vomiting Rosuvastatin Calcium (Crestor) 10 mg PO HS [facility] Last Admin: 10/23/17 21:47 Dose: 10 mg Saccharomyces Boulardii (Florastor) 250 mg PO BID [facility] Last Admin: 10/24/17 09:05 Dose: 250 mg - Labs Labs: 10/24/17 06:20 10/24/17 06:20 PT 13.4 SECONDS (9.7-12.2) H 10/14/17 16:30 INR 1.2 10/14/17 16:30 APTT 28 SECONDS (21-34) 10/14/17 16:30 - Constitutional Appears: No Acute Distress, Chronically Ill - Head Exam Head Exam: ATRAUMATIC, NORMOCEPHALIC - ENT Exam ENT Exam: Mucous Membranes Moist - Respiratory Exam Respiratory Exam: NORMAL BREATHING PATTERN - Cardiovascular Exam Cardiovascular Exam: REGULAR RHYTHM - GI/Abdominal Exam GI & Abdominal Exam: Soft. absent: Tenderness Additional comments: peg tube in place - Back Exam Additional comments: stage IV sacral ulcer with dressing clean, dry, intact - Neurological Exam Neurological Exam: Awake - Psychiatric Exam Psychiatric exam: Flat Affect - Skin Skin Exam: Dry, Warm Assessment and Plan - Assessment and Plan (Free Text) Plan: 77M with stage IV sacral decubitus ulcer - Daily dressing changes with Santyl - Continue IV antibiotics - No surgical intervention at this time - Discussed with Dr. Andrei Moe PGY1
--- NOTE | 2017-10-24 11:58 | CP.PCM.PN ---
Subjective - Date & Time of Evaluation Date of Evaluation: 10/24/17 Time of Evaluation: 10:30 - Subjective Subjective: patient seen and examined Response to vocal command Patient to be transfused packed RBCs On eliquis for A. fib Objective - Vital Signs/Intake and Output Vital Signs (last 24 hours): Temp Pulse Resp BP Pulse Ox 99.5 F 100 H 12 117/80 100 10/24/17 08:00 10/24/17 10:46 10/24/17 10:46 10/24/17 10:46 10/24/17 10:46 Intake and Output: 10/24/17 10/24/17 06:59 18:59 Intake Total 1100 Output Total 100 Balance 1000 - Medications Medications: Current Medications Ascorbic Acid (Vitamin C 500 Mg Tab) 500 mg PEG DAILY [facility] Last Admin: 10/24/17 09:08 Dose: 500 mg Aspirin (Aspirin Chewable) 81 mg PO DAILY [facility] Last Admin: 10/24/17 09:11 Dose: 81 mg Bisacodyl (Dulcolax) 10 mg [place] ONCE PRN PRN Reason: Constipation Calcitriol (Rocaltrol) 0.25 mcg PEG DAILY [facility] Last Admin: 10/24/17 09:08 Dose: 0.25 mcg Collagenase (Santyl) 1 gm TOP DAILY [facility] Last Admin: 10/23/17 09:37 Dose: 1 applic Epoetin [place] (Procrit) 10,000 unit IV MWF [facility] Last Admin: 10/21/17 12:45 Dose: 10,000 unit Famotidine (Pepcid) 20 mg PO DAILY [facility] Last Admin: 10/24/17 09:07 Dose: 20 mg Cefepime HCl 1 gm/ Dextrose 50 mls @ 100 mls/hr IVPB Q24H [facility] Last Admin: 10/24/17 09:01 Dose: 100 mls/hr Fluconazole (Diflucan Iv 100 Mg/50 Ml Ns) 50 mls @ 100 mls/hr IVPB Q24H [facility] Last Admin: 10/23/17 18:44 Dose: 100 mls/hr Insulin Aspart (Novolog) 0 unit SC Q6 [facility] PRN Reason: Protocol Last Admin: 10/24/17 07:07 Dose: 5 unit Insulin Detemir (Levemir) 8 unit SC AMHS [facility] Last Admin: 10/24/17 09:06 Dose: 8 unit Ipratropium [place] (Atrovent) 0.5 mg IH RQ6 [facility] Last Admin: 10/24/17 07:30 Dose: 0.5 mg Metoprolol Tartrate (Lopressor) 25 mg PEG BIDBS [facility] Last Admin: 10/24/17 09:01 Dose: 25 mg Metronidazole (Flagyl) 500 mg GT Q8 [facility] Last Admin: 10/24/17 07:07 Dose: 500 mg Midodrine (Proamatine) 5 mg PO TID [facility] Last Admin: 10/24/17 09:07 Dose: 5 mg Multivitamins/Vitamin C (Multi-Delyn Liquid) 5 ml PEG DAILY [facility] Last Admin: 10/24/17 09:07 Dose: 5 ml Ondansetron HCl (Zofran Inj) 4 mg IVP Q8H PRN PRN Reason: Nausea/Vomiting Rosuvastatin Calcium (Crestor) 10 mg PO HS [facility] Last Admin: 10/23/17 21:47 Dose: 10 mg Saccharomyces Boulardii (Florastor) 250 mg PO BID [facility] Last Admin: 10/24/17 09:05 Dose: 250 mg - Labs Labs: 10/24/17 06:20 10/24/17 06:20 PT 13.4 SECONDS (9.7-12.2) H 10/14/17 16:30 INR 1.2 10/14/17 16:30 APTT 28 SECONDS (21-34) 10/14/17 16:30 - Head Exam Head Exam: ATRAUMATIC, NORMOCEPHALIC - ENT Exam ENT Exam: Mucous Membranes Moist - Respiratory Exam Respiratory Exam: Decreased Breath Sounds - Cardiovascular Exam Cardiovascular Exam: REGULAR RHYTHM - GI/Abdominal Exam GI & Abdominal Exam: Soft, Normal Bowel Sounds Assessment and Plan (1) Hypotension (arterial) Status: Acute (2) Pneumonia Status: Acute (3) Cardiac arrest Status: Acute (4) History of DVT (deep vein thrombosis) Status: Acute (5) CKD (chronic kidney disease) Status: Chronic (6) CHF (congestive heart failure) Status: Acute
[2017-10-24] MEDS: Collagenase 250 Units/gm Ointment(30 gm) TOP SCH (13:06)
[2017-10-24] MEDS ORDERED: Acetaminophen 650mg/20.3ml solution UD PO ONE (15:36)
[2017-10-24] MEDS ORDERED: DiphenhydrAMINE 50 mg/ml Inj IVP ONE (15:45)
--- NOTE | 2017-10-24 17:09 | CP.PCM.PN ---
<Tangela Sanchez - Last Filed: 10/24/17 18:06> Subjective - Date & Time of Evaluation Date of Evaluation: 10/24/17 Time of Evaluation: 07:50 - Subjective Subjective: Progress note for Dr. Barth Patient seen and examined at bedside. Patient is unable to answer due to clinical status. is at bedside. Obtained consent for PICC line. However, per nursing staff, patient is unable to get picc line. IR placed midline last time. Patient is to get TLC by surgery team. is aware of the situation. Discussed with of patient about getting a letter from [employer] work for a visa for the daughter. Objective - Vital Signs/Intake and Output Vital Signs (last 24 hours): Temp Pulse Resp BP Pulse Ox 98.2 F 104 H 31 H 84/39 L 100 10/24/17 17:02 10/24/17 17:02 10/24/17 17:02 10/24/17 17:02 10/24/17 16:17 Intake and Output: 10/24/17 10/24/17 06:59 18:59 Intake Total 1500 Output Total 100 Balance 1400 - Medications Medications: Current Medications Ascorbic Acid (Vitamin C 500 Mg Tab) 500 mg PEG DAILY [facility] Last Admin: 10/24/17 09:08 Dose: 500 mg Aspirin (Aspirin Chewable) 81 mg PO DAILY [facility] Last Admin: 10/24/17 09:11 Dose: 81 mg Bisacodyl (Dulcolax) [address] ONCE PRN PRN Reason: Constipation Calcitriol (Rocaltrol) 0.25 mcg PEG DAILY [facility] Last Admin: 10/24/17 09:08 Dose: 0.25 mcg Collagenase (Santyl) 1 gm TOP DAILY [facility] Last Admin: 10/24/17 13:06 Dose: 1 applic Epoetin Asim (Procrit) 10,000 unit IV MWF [facility] Last Admin: 10/21/17 12:45 Dose: 10,000 unit Famotidine (Pepcid) 20 mg PO DAILY [facility] Last Admin: 10/24/17 09:07 Dose: 20 mg Cefepime HCl 1 gm/ Dextrose 50 mls @ 100 mls/hr IVPB Q24H [facility] Last Admin: 10/24/17 09:01 Dose: 100 mls/hr Fluconazole (Diflucan Iv 100 Mg/50 Ml Ns) 50 mls @ 100 mls/hr IVPB Q24H [facility] Last Admin: 10/23/17 18:44 Dose: 100 mls/hr Insulin Aspart (Novolog) 0 unit SC Q6 [facility] PRN Reason: Protocol Last Admin: 10/24/17 13:05 Dose: 5 unit Insulin Detemir (Levemir) 8 unit SC AMHS [facility] Last Admin: 10/24/17 09:06 Dose: 8 unit Ipratropium [place] (Atrovent) 0.5 mg IH RQ6 [facility] Last Admin: 10/24/17 14:42 Dose: 0.5 mg Metoprolol Tartrate (Lopressor) 25 mg PEG BIDBS [facility] Last Admin: 10/24/17 09:01 Dose: 25 mg Metronidazole (Flagyl) 500 mg GT Q8 [facility] Last Admin: 10/24/17 13:04 Dose: 500 mg Midodrine (Proamatine) 5 mg PO TID [facility] Last Admin: 10/24/17 13:05 Dose: 5 mg Multivitamins/Vitamin C (Multi-Delyn Liquid) 5 ml PEG DAILY [facility] Last Admin: 10/24/17 09:07 Dose: 5 ml Ondansetron HCl (Zofran Inj) 4 mg IVP Q8H PRN PRN Reason: Nausea/Vomiting Rosuvastatin Calcium (Crestor) 10 mg PO HS [facility] Last Admin: 10/23/17 21:47 Dose: 10 mg Saccharomyces Boulardii (Florastor) 250 mg PO BID [facility] Last Admin: 10/24/17 09:05 Dose: 250 mg - Labs Labs: 10/24/17 06:20 10/24/17 06:20 PT 13.4 SECONDS (9.7-12.2) H 10/14/17 16:30 INR 1.2 10/14/17 16:30 APTT 28 SECONDS (21-34) 10/14/17 16:30 - Constitutional Appears: Non-toxic - Head Exam Head Exam: NORMAL INSPECTION - ENT Exam ENT Exam: Mucous Membranes Moist Additional comments: patient has secretions tracheostomy tube in place. no erythema, induration. - Neck Exam Neck Exam: Full ROM - Respiratory Exam Respiratory Exam: Decreased Breath Sounds, NORMAL BREATHING PATTERN. absent: Accessory Muscle Use, Wheezes - Cardiovascular Exam Cardiovascular Exam: +S1, +S2 - GI/Abdominal Exam GI & Abdominal Exam: Soft. absent: Tenderness - Extremities Exam Extremities Exam: absent: Pedal Edema - Neurological Exam Neurological Exam: Awake - Psychiatric Exam Psychiatric exam: Flat Affect - Skin Additional comments: patient has sacral ulcers, treated by wound care team Assessment and Plan - Assessment and Plan (Free Text) Assessment: 77M with ARDS s/p cardiac arrest, with pulmonary edema and NSTEMI ipratropium 0.02% (atrovent) 0.5mg IH RQ6H 10/24 CXR: questionable interval atelectasis or infiltrate in medial right base 10/23 mid bibasilar atelectasis. questionable small left-sided effusion Constipation Dulcolax 10mg CT Once PRN 10/21, patient had a dark brown BM yesterday, none today per nursing staff Discussed with nurse, sacral wound dressing changed this morning. Patient is having diarrhea, in the Flexseal. Cultures were taken when I spoke with the nurse. leukocytosis current cultures negative (blood, stool and wound) 10/14 urine culture: yeast f/u stool culture from rectoseal from 10/23 flagyl 500mg GT Q8H Saccharomyces boulardi (florastor) 250mg POBID Abnormal Stress test, history of AICD, hx CAD ASA 81mg POQD Rosuvastatin [id number] POQHS Atrial Flutter, resolved Cardiology Consult (Dr. Cortés) Aspirin 81mg Po daily c/w Eliquis 2.5mg PO bid Eliquis held today d/t Hgb 6.6 10/24 low hemoglobin Epoeitin asim 59582 u IV M, W, F Eliquis held today d/t Hgb 6.6 10/24 2uPRBC adminstered after dialysis today 10/24 f/u 9pm CBC Hypocalcemia Calcitriol 0.25 mcg PEG daily UTI, yeast positive 10/14 urine positive for yeast diflucan 100mg/50cc NS @ 55cc/hr QD Unstageable Sacral Ulcer, Left Ear Auriclular ulcer, Right Heal Ulcer Cefepime 1 gm D5W 50cc/hr QD Santyl HTN, medications held until blood pressure is higher Midodrine (proamatine) metoprolol 25mg PEG BID BS DM Novolog- Insulin aspar sc Q6 Levemir 8 units SC AMHS ISS glucose accuchecks Benadryl 25mg IVP once 10/24 zofran 4mg IVP Q8H PRN Prophylaxis Pepcid 20mg POQD Diet: tube feeds: Vital 1.2 initial rate 20cc/hr with goal rate 70cc/hr Patient is at goal rate Social Work Patient's new insurance does not accept LTAC. new insurance starts October 28 Patient to possible go to [facility] central supply worker to provide letter to have daughter in [place] get a visa to come to the [place] to see her father. f/u with central supply worker. Family really wants the letter by tomorrow 10/25 Patient is to have Right IJ TLC placed by surgery team. Patient discussed with DR. Cullen Sanchez, DO PGY1 <Cullen Barth J - Last Filed: 10/24/17 20:14> Objective - Vital Signs/Intake and Output Vital Signs (last 24 hours): Temp Pulse Resp BP Pulse Ox 97.7 F 116 H 36 H 94/21 L 98 10/24/17 18:05 10/24/17 19:17 10/24/17 19:17 10/24/17 19:17 10/24/17 19:17 Intake and Output: 10/24/17 10/25/17 18:59 06:59 Intake Total 2430 Output Total 100 Balance 2330 - Medications Medications: Current Medications Ascorbic Acid (Vitamin C 500 Mg Tab) 500 mg PEG DAILY [facility] Last Admin: 10/24/17 09:08 Dose: 500 mg Aspirin (Aspirin Chewable) 81 mg PO DAILY [facility] Last Admin: 10/24/17 09:11 Dose: 81 mg Bisacodyl (Dulcolax) [address] ONCE PRN PRN Reason: Constipation Calcitriol (Rocaltrol) 0.25 mcg PEG DAILY [facility] Last Admin: 10/24/17 09:08 Dose: 0.25 mcg Collagenase (Santyl) 1 gm TOP DAILY [facility] Last Admin: 10/24/17 13:06 Dose: 1 applic Epoetin Asim (Procrit) 10,000 unit IV MWF [facility] Last Admin: 10/24/17 18:01 Dose: 10,000 unit Famotidine (Pepcid) 20 mg PO DAILY [facility] Last Admin: 10/24/17 09:07 Dose: 20 mg Cefepime HCl 1 gm/ Dextrose 50 mls @ 100 mls/hr IVPB Q24H [facility] Last Admin: 10/24/17 09:01 Dose: 100 mls/hr Fluconazole (Diflucan Iv 100 Mg/50 Ml Ns) 50 mls @ 100 mls/hr IVPB Q24H [facility] Last Admin: 10/24/17 18:32 Dose: 100 mls/hr Insulin Aspart (Novolog) 0 unit SC Q6 [facility] PRN Reason: Protocol Last Admin: 10/24/17 18:33 Dose: 2 unit Insulin Detemir (Levemir) 8 unit SC AMHS [facility] Last Admin: 10/24/17 09:06 Dose: 8 unit Ipratropium [place] (Atrovent) 0.5 mg IH RQ6 [facility] Last Admin: 10/24/17 14:42 Dose: 0.5 mg Metoprolol Tartrate (Lopressor) 25 mg PEG BIDBS [facility] Last Admin: 10/24/17 18:32 Dose: 25 mg Metronidazole (Flagyl) 500 mg GT Q8 [facility] Last Admin: 10/24/17 13:04 Dose: 500 mg Midodrine (Proamatine) 5 mg PO TID [facility] Last Admin: 10/24/17 18:35 Dose: 5 mg Multivitamins/Vitamin C (Multi-Delyn Liquid) 5 ml PEG DAILY [facility] Last Admin: 10/24/17 09:07 Dose: 5 ml Ondansetron HCl (Zofran Inj) 4 mg IVP Q8H PRN PRN Reason: Nausea/Vomiting Rosuvastatin Calcium (Crestor) 10 mg PO HS [facility] Last Admin: 10/23/17 21:47 Dose: 10 mg Saccharomyces Boulardii (Florastor) 250 mg PO BID [facility] Last Admin: 10/24/17 18:34 Dose: 250 mg - Labs Labs: 10/24/17 06:20 10/24/17 06:20 PT 13.4 SECONDS (9.7-12.2) H 10/14/17 16:30 INR 1.2 10/14/17 16:30 APTT 28 SECONDS (21-34) 10/14/17 16:30 Attending/Attestation - Attestation I have personally seen and examined this patient.: Yes I have fully participated in the care of the patient.: Yes I have reviewed all pertinent clinical information, including history, physical exam and plan: Yes Notes (Text): 10/24/17 20:00 Patient was seen and examined at 11:45 AM 10/24/17 ICU BED 18 Exam, assessment and plan were thoroughly gone over with the resident Assessments: 1). Hx Acute Respiratory Failure/ARDS/Cadiac Arrest/NSTEMI 2). Hx Abnormal Stress Test/AICD/CAD 3). Hx Atrial Flutter: stopped Eliquis 10/24/17 secondary significant drop in HgB 4). 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 Leukocytosis: still elevated at 23.7. Blood Culture 10/22/17 is NGTD. Cefepime (10/12/17), Aztreonam (10/13/17), Diflucan (10/14/17), Flagyl (10/16/17 ). F/U Midline Tip Culture 6). Hx Pneumonia 7). Hx HTN: currently on Metoprolol and Midodrine. Lisinopril was discontinued on 10/14/17 at the time of [employer] for Hypotension 8). Hx CKD on HD -- 9). Hx DM: the Levemir will have to be adjusted 10/25/17 10). Hx HLD 11). Hx Anemia: Eliquis stopped 10/24/17 and being transfused 2 units PRBCs. F/ U CBC at 9 PM 10/24/17 12). Hx DVT 13). Hx UTI: Yeast on culture 10/24/17 and patient on Diflucan (10/14/17). He may be colonized with this. 14). Hx Alzheimer's Dimentia 15). Hx Sacral Ulcer: currently on Collagenase 16). Hx Right Heal Ulcer: improved on exam and area of necrosis is decreased since my last exam 10/02/17. Pravolon boots 17). Hx Elevated LFTs 18). Diarrhea: on Rectal Seal and producing dark brown/black stools that are watery. F/U Stool Studies 19). Hx Hyponatremia 20). Hx PEG Tube: Vital 1.5 at 50 ml/hour 21). Hx Hypocalcemia: Calcitriol 22). Prophylactic Measures: Vitamin C, Dulcolax PRN, Pepcid, MVI, Zofran PRN, Florastor Spoke with at length with patient's Nephew Patrick via phone at the request of who was at bedside and updated him. is requesting letter for her Daughter Libra Serrano so that it can be provided to her to obtain Visa to travel to the [facility] from [facility]. I spoke with [employer] Demetria Angel who will speak with Engineering Design Supervisor Nehal so that letter can be provided. [employer] Demetria Angel informed me that patient will have new Medicaid Insurance by 10/28/17 that will be accepted by [facility]. Unfortunately this insurance, I was informed, is not accepted by [facility]. Cullen Barth D.O.
[2017-10-24] MEDS: Epoetin Alfa 10,000 unit/ml Dialysis IV SCH (18:01)
[2017-10-24] MEDS: Fluconazole IV 100mg/50 ml NS 50 ML IVPB SCH (18:32)
[2017-10-24] MEDS ORDERED: Loperamide Hydrochloride 1 mg/5 ml Cup PO ONE ×2 (20:35→21:30)
--- NOTE | 2017-10-24 22:15 | CP.PCM.PN ---
Subjective - Date & Time of Evaluation Date of Evaluation: 10/24/17 Time of Evaluation: 06:40 - Subjective Subjective: dictated Objective - Vital Signs/Intake and Output Vital Signs (last 24 hours): Temp Pulse Resp BP Pulse Ox 97.7 F 116 H 36 H 94/21 L 98 10/24/17 18:05 10/24/17 19:17 10/24/17 19:17 10/24/17 19:17 10/24/17 19:17 Intake and Output: 10/24/17 10/25/17 18:59 06:59 Intake Total 2430 Output Total 100 Balance 2330 - Medications Medications: Current Medications Ascorbic Acid (Vitamin C 500 Mg Tab) 500 mg PEG DAILY [facility] Last Admin: 10/24/17 09:08 Dose: 500 mg Aspirin (Aspirin Chewable) 81 mg PO DAILY [facility] Last Admin: 10/24/17 09:11 Dose: 81 mg Calcitriol (Rocaltrol) 0.25 mcg PEG DAILY [facility] Last Admin: 10/24/17 09:08 Dose: 0.25 mcg Collagenase (Santyl) 1 gm TOP DAILY [facility] Last Admin: 10/24/17 13:06 Dose: 1 applic Epoetin [place] (Procrit) 10,000 unit IV MWF [facility] Last Admin: 10/24/17 18:01 Dose: 10,000 unit Famotidine (Pepcid) 20 mg PO DAILY [facility] Last Admin: 10/24/17 09:07 Dose: 20 mg Cefepime HCl 1 gm/ Dextrose 50 mls @ 100 mls/hr IVPB Q24H [facility] Last Admin: 10/24/17 09:01 Dose: 100 mls/hr Fluconazole (Diflucan Iv 100 Mg/50 Ml Ns) 50 mls @ 100 mls/hr IVPB Q24H [facility] Last Admin: 10/24/17 18:32 Dose: 100 mls/hr Insulin Aspart (Novolog) 0 unit SC Q6 [facility] PRN Reason: Protocol Insulin Detemir (Levemir) 8 unit SC AMHS [facility] Last Admin: 10/24/17 21:22 Dose: 8 unit Ipratropium [place] (Atrovent) 0.5 mg IH RQ6 [facility] Last Admin: 10/24/17 20:19 Dose: 0.5 mg Metoprolol Tartrate (Lopressor) 25 mg PEG BIDBS [facility] Last Admin: 10/24/17 18:32 Dose: 25 mg Metronidazole (Flagyl) 500 mg GT Q8 [facility] Last Admin: 10/24/17 21:23 Dose: 500 mg Midodrine (Proamatine) 5 mg PO TID [facility] Last Admin: 10/24/17 18:35 Dose: 5 mg Multivitamins/Vitamin C (Multi-Delyn Liquid) 5 ml PEG DAILY [facility] Last Admin: 10/24/17 09:07 Dose: 5 ml Ondansetron HCl (Zofran Inj) 4 mg IVP Q8H PRN PRN Reason: Nausea/Vomiting Rosuvastatin Calcium (Crestor) 10 mg PO HS [facility] Last Admin: 10/24/17 21:25 Dose: 10 mg Saccharomyces Boulardii (Florastor) 250 mg PO BID [facility] Last Admin: 10/24/17 18:34 Dose: 250 mg - Labs Labs: 10/24/17 06:20 10/24/17 06:20 PT 13.4 SECONDS (9.7-12.2) H 10/14/17 16:30 INR 1.2 10/14/17 16:30 APTT 28 SECONDS (21-34) 10/14/17 16:30
[2017-10-24 22:27] LABS: BASO # 0.2 K/uL (0.0-0.2); BASO % 0.5 % (0.0-2.0); EOS # 0.1 K/uL (0.0-0.7); EOS % 0.5 % (0.0-4.0); HEMATOCRIT 35.6 % (35.0-51.0); LYMPH # 3.5 K/uL (1.0-4.3); LYMPH % 12.9 % (20.0-40.0); MEAN CELL VOLUME 87.8 fL (80.0-94.0); MEAN CORPUSCULAR HEMOGLOBIN 27.7 pg (27.0-31.0); MEAN CORPUSCULAR HGB CONC 31.6 g/dL (33.0-37.0); MEAN PLATELET VOLUME 8.1 fL (7.2-11.7); MONO # 1.5 K/uL (0.0-0.8); MONO % 5.6 % (0.0-10.0); NRBC % 2.5 % (0.0-2.0); RED CELL DISTRIBUTION WIDTH 21.2 % (11.5-14.5); WHITE BLOOD COUNT 27.4 K/uL (4.8-10.8)
[2017-10-24] MEDS ORDERED: Sodium Chloride 0.9% 500 ML IV ONE (23:40)
[2017-10-25] MEDS: (Novolog) Insulin Aspart, Recombinant 100 u/ml 10 ml vial SC SCH ×4 (00:24→18:01)
[2017-10-25 00:55] LABS: ARTERIAL BLOOD HGB O2 SAT 94.1 % (95.0-98.0); CARBOXYHEMOGLOBIN 2.4 % (0.5-1.5); DRAW SITE LB; HHB 2.2 % (0.0-5.0); METHEMOGLOBIN 1.3 % (0.0-3.0)
--- NOTE | 2017-10-25 01:55 | PN ---
SUBJECTIVE: The patient was having dialysis done. He remains on the trach mask. He has been having diarrhea. He has a rectal tube and the nurse was saying he was developing excoriation around his anal area due to so much diarrhea and then hemodialysis nurse told me that she only took out 500 mL, as his blood pressure was dropping and he is on cefepime, fluconazole, metronidazole. He is on multiple antibiotics and has been on them for a long time. However, his white count still remains high and the patient is unable to get a PICC line. IR placed a midline last time, so that may be needed again if he continues on antibiotics. PHYSICAL EXAMINATION VITAL SIGNS: Show that his temperature is 97.7; blood pressure still waxes and wanes, it was 94/21, and when he finished the dialysis, it was 115/95, he remains tachycardic and on the trach mask; respiratory rate is sometimes high and sometimes low, depending on his secretions. LUNGS: Coarse breath sounds. ABDOMEN: Soft, flabby, nontender, has a PEG. EXTREMITIES: Remain with Venodyne boots, unable to evaluate for any edema. He does have a sacral decubitus which is huge. LABORATORY DATA: White count is 23.7, hemoglobin 6.6, hematocrit is 20.9 and platelet count is 451 and told he received 2 units of blood as he has been actively bleeding. At this time, the sputum culture, blood culture and stool cultures are negative (but since he has been anemic), white count could be related to , we will follow. Prognosis remains guarded. His sputum culture, blood culture, stool culture, ova and parasite are all negative. Only urine culture is yeast, so maybe we just leave him on Diflucan and Flagyl. We will evaluate again. Allan Lawrence MD
[2017-10-25 06:29] LABS: BASO # 0.1 K/uL (0.0-0.2); BASO % 0.3 % (0.0-2.0); EOS # 0.1 K/uL (0.0-0.7); EOS % 0.5 % (0.0-4.0); HEMATOCRIT 31.4 % (35.0-51.0); LYMPH # 2.2 K/uL (1.0-4.3); LYMPH % 10.3 % (20.0-40.0); MEAN CELL VOLUME 87.7 fL (80.0-94.0); MEAN CORPUSCULAR HEMOGLOBIN 28.4 pg (27.0-31.0); MEAN CORPUSCULAR HGB CONC 32.4 g/dL (33.0-37.0); MEAN PLATELET VOLUME 8.4 fL (7.2-11.7); MONO % 4.7 % (0.0-10.0); NRBC % 1.8 % (0.0-2.0); RED CELL DISTRIBUTION WIDTH 21.2 % (11.5-14.5)
[2017-10-25 06:54] LABS: ALB/GLOB RATIO 0.7 (1.0-2.1); BILIRUBIN,TOTAL 0.6 mg/dL (0.2-1.3); CALCIUM 7.4 mg/dl (8.6-10.4); POTASSIUM 3.2 mmol/L (3.6-5.2); TOTAL PROTEIN 6.9 g/dL (6.3-8.3)
[2017-10-25] MEDS: Ipratropium 0.02% Inhal Soln (0.5 mg/2.5 ml) UD IH SCH ×3 (07:59→19:53)
--- NOTE | 2017-10-25 08:36 | CP.PCM.PN ---
Subjective - Date & Time of Evaluation Date of Evaluation: 10/25/17 Time of Evaluation: 07:45 - Subjective Subjective: General Surgery Note for Dr. Forbes Patient seen and examined at bedside. Patient received 2 units PRBC yesterday with dialysis. Patient is non-verbal, reacts to verbal and tactile stimuli and follows some commands. Objective - Vital Signs/Intake and Output Vital Signs (last 24 hours): Temp Pulse Resp BP Pulse Ox 98.9 F 104 H 22 99/40 L 97 10/25/17 04:00 10/25/17 06:00 10/25/17 06:00 10/25/17 06:15 10/25/17 06:00 Intake and Output: 10/25/17 10/25/17 06:59 18:59 Intake Total 1300 Output Total 100 Balance 1200 - Medications Medications: Current Medications Ascorbic Acid (Vitamin C 500 Mg Tab) 500 mg PEG DAILY [facility] Last Admin: 10/24/17 09:08 Dose: 500 mg Aspirin (Aspirin Chewable) 81 mg PO DAILY [facility] Last Admin: 10/24/17 09:11 Dose: 81 mg Calcitriol (Rocaltrol) 0.25 mcg PEG DAILY [facility] Last Admin: 10/24/17 09:08 Dose: 0.25 mcg Collagenase (Santyl) 1 gm TOP DAILY [facility] Last Admin: 10/24/17 13:06 Dose: 1 applic Epoetin [place] (Procrit) 10,000 unit IV MWF [facility] Last Admin: 10/24/17 18:01 Dose: 10,000 unit Famotidine (Pepcid) 20 mg PO DAILY [facility] Last Admin: 10/24/17 09:07 Dose: 20 mg Fluconazole (Diflucan Iv 100 Mg/50 Ml Ns) 50 mls @ 100 mls/hr IVPB Q24H [facility] Last Admin: 10/24/17 18:32 Dose: 100 mls/hr Insulin Aspart (Novolog) 0 unit SC Q6 [facility] PRN Reason: Protocol Last Admin: 10/25/17 06:38 Dose: 2 unit Insulin Detemir (Levemir) 8 unit SC AMHS [facility] Last Admin: 10/24/17 21:22 Dose: 8 unit Ipratropium [place] (Atrovent) 0.5 mg IH RQ6 [facility] Last Admin: 10/25/17 07:59 Dose: 0.5 mg Metoprolol Tartrate (Lopressor) 25 mg PEG BIDBS [facility] Last Admin: 10/24/17 18:32 Dose: 25 mg Metronidazole (Flagyl) 500 mg GT Q8 [facility] Last Admin: 10/25/17 06:37 Dose: 500 mg Midodrine (Proamatine) 5 mg PO TID [facility] Last Admin: 10/24/17 18:35 Dose: 5 mg Multivitamins/Vitamin C (Multi-Delyn Liquid) 5 ml PEG DAILY [facility] Last Admin: 10/24/17 09:07 Dose: 5 ml Ondansetron HCl (Zofran Inj) 4 mg IVP Q8H PRN PRN Reason: Nausea/Vomiting Rosuvastatin Calcium (Crestor) 10 mg PO HS [facility] Last Admin: 10/24/17 21:25 Dose: 10 mg Saccharomyces Boulardii (Florastor) 250 mg PO BID [facility] Last Admin: 10/24/17 18:34 Dose: 250 mg - Labs Labs: 10/25/17 06:15 10/25/17 06:15 PT 13.4 SECONDS (9.7-12.2) H 10/14/17 16:30 INR 1.2 10/14/17 16:30 APTT 28 SECONDS (21-34) 10/14/17 16:30 - Constitutional Appears: No Acute Distress - Head Exam Head Exam: ATRAUMATIC, NORMOCEPHALIC - Eye Exam Eye Exam: Normal appearance - ENT Exam ENT Exam: Mucous Membranes Dry - Neck Exam Additional comments: tracheostomy - Respiratory Exam Respiratory Exam: NORMAL BREATHING PATTERN - Cardiovascular Exam Cardiovascular Exam: REGULAR RHYTHM - GI/Abdominal Exam GI & Abdominal Exam: Soft. absent: Tenderness Additional comments: peg tube - Back Exam Additional comments: syage V sacra ulcer - eschar and some necrotic tissue removed at bedside, dressed with santyl and optiform - Neurological Exam Neurological Exam: Altered, Awake - Psychiatric Exam Psychiatric exam: Flat Affect - Skin Skin Exam: Dry, Warm Assessment and Plan - Assessment and Plan (Free Text) Plan: 77M with stage V sacral decubitus ulcer s/p bedside debridement -OR tomorrow for further debridemnt -Daily dressing changes with Santyl -Continue IV antibiotics -f/u cultures -Discussed with Dr. Andrei Moe PGY1
--- NOTE | 2017-10-25 09:37 | CP.PCM.PN ---
Subjective - Date & Time of Evaluation Date of Evaluation: 10/25/17 Time of Evaluation: 09:35 - Subjective Subjective: seen and examined, events noted. unable to obtain ros due to medical condition, ams trach s/p 2 units prbc and 500cc iv fluids for hypotension. dark stools, eliquis on hold hd yesterday w/ minimal uf cxr with some congestion Objective - Vital Signs/Intake and Output Vital Signs (last 24 hours): Temp Pulse Resp BP Pulse Ox 98.9 F 113 H 25 H 87/35 L 100 10/25/17 04:00 10/25/17 08:59 10/25/17 08:59 10/25/17 08:59 10/25/17 08:59 Intake and Output: 10/25/17 10/25/17 06:59 18:59 Intake Total 1300 Output Total 100 Balance 1200 - Medications Medications: Current Medications Ascorbic Acid (Vitamin C 500 Mg Tab) 500 mg PEG DAILY [facility] Last Admin: 10/24/17 09:08 Dose: 500 mg Aspirin (Aspirin Chewable) 81 mg PO DAILY [facility] Last Admin: 10/24/17 09:11 Dose: 81 mg Calcitriol (Rocaltrol) 0.25 mcg PEG DAILY [facility] Last Admin: 10/24/17 09:08 Dose: 0.25 mcg Collagenase (Santyl) 1 gm TOP DAILY [facility] Last Admin: 10/24/17 13:06 Dose: 1 applic Epoetin [place] (Procrit) 10,000 unit IV MWF [facility] Last Admin: 10/24/17 18:01 Dose: 10,000 unit Famotidine (Pepcid) 20 mg PO DAILY [facility] Last Admin: 10/24/17 09:07 Dose: 20 mg Fluconazole (Diflucan Iv 100 Mg/50 Ml Ns) 50 mls @ 100 mls/hr IVPB Q24H [facility] Last Admin: 10/24/17 18:32 Dose: 100 mls/hr Insulin Aspart (Novolog) 0 unit SC Q6 [facility] PRN Reason: Protocol Last Admin: 10/25/17 06:38 Dose: 2 unit Insulin Detemir (Levemir) 8 unit SC AMHS [facility] Last Admin: 10/24/17 21:22 Dose: 8 unit Ipratropium [place] (Atrovent) 0.5 mg IH RQ6 [facility] Last Admin: 10/25/17 07:59 Dose: 0.5 mg Metoprolol Tartrate (Lopressor) 25 mg PEG BIDBS [facility] Last Admin: 10/24/17 18:32 Dose: 25 mg Metronidazole (Flagyl) 500 mg GT Q8 [facility] Last Admin: 10/25/17 06:37 Dose: 500 mg Midodrine (Proamatine) 10 mg PO TID [facility] Multivitamins/Vitamin C (Multi-Delyn Liquid) 5 ml PEG DAILY [facility] Last Admin: 10/24/17 09:07 Dose: 5 ml Ondansetron HCl (Zofran Inj) 4 mg IVP Q8H PRN PRN Reason: Nausea/Vomiting Potassium Chloride (K-Dur 20 Meq Er Tab) 20 meq PO ONCE ONE Stop: 10/25/17 10:01 Rosuvastatin Calcium (Crestor) 10 mg PO HS [facility] Last Admin: 10/24/17 21:25 Dose: 10 mg Saccharomyces Boulardii (Florastor) 250 mg PO BID [facility] Last Admin: 10/24/17 18:34 Dose: 250 mg - Labs Labs: 10/25/17 06:15 10/25/17 06:15 PT 13.4 SECONDS (9.7-12.2) H 10/14/17 16:30 INR 1.2 10/14/17 16:30 APTT 28 SECONDS (21-34) 10/14/17 16:30 - Constitutional Appears: No Acute Distress, Cachectic, Chronically Ill - Head Exam Head Exam: NORMAL INSPECTION - Eye Exam Eye Exam: Normal appearance - ENT Exam ENT Exam: Mucous Membranes Dry - Neck Exam Additional comments: trach-vent - Respiratory Exam Respiratory Exam: Decreased Breath Sounds (decreased sounds bases) - Cardiovascular Exam Cardiovascular Exam: RRR - GI/Abdominal Exam GI & Abdominal Exam: Distended (peg ), Soft - Extremities Exam Extremities Exam: Normal Inspection Assessment and Plan (1) Acute on chronic renal failure Status: Resolved (2) CHF (congestive heart failure) Status: Acute (3) History of DVT (deep vein thrombosis) Status: Acute (4) CAD (coronary artery disease) Status: Chronic (5) CKD (chronic kidney disease) Status: Chronic - Assessment and Plan (Free Text) Assessment: plan for hd tomorrow maintain epogen. cgeck iron stores increase midodrine dose potassium supplement ordered
[2017-10-25] MEDS ORDERED: Potassium Chloride 20 mEq ER Tab PO ONE (10:00)
[2017-10-25] MEDS: Saccharomyces Boulardi 250 mg Cap PO SCH ×2 (10:07→18:01)
[2017-10-25] MEDS: Multiple Vitamins Oral Solution PEG SCH (10:07)
[2017-10-25] MEDS: Insulin Detemir 100 units/ml Vial (Levemir) SC SCH ×2 (10:10→21:53)
[2017-10-25] MEDS: Collagenase 250 Units/gm Ointment(30 gm) TOP SCH (10:28)
--- NOTE | 2017-10-25 10:49 | RAD ---
HISTORY: intubated COMPARISON: 10/24/2017. FINDINGS: There is stable position of the tracheostomy tube. The right dialysis catheter terminates in the right atrium. The right PICC line terminates in the axillary vein. LUNGS: There is interval development of discoid atelectasis in the right lower lobe. There is a left retrocardiac opacity. PLEURA: Small left pleural effusion. No pneumothorax. CARDIOVASCULAR: Persistent mild cardiomegaly. Stable position of a left-sided transvenous permanent pacing device. OSSEOUS STRUCTURES: No significant abnormalities. VISUALIZED UPPER ABDOMEN: Normal. OTHER FINDINGS: None. IMPRESSION: 1. Left lower lobe atelectasis/ pneumonia and small left pleural effusion. 2. Interval development of discoid atelectasis in the right lower lobe. 3. Stable position of support lines and tube.
[2017-10-25] MEDS ORDERED: Insulin Detemir 100 units/ml Vial (Levemir) SC SCH (11:12)
--- NOTE | 2017-10-25 14:15 | CP.PCM.PN ---
Subjective - Date & Time of Evaluation Date of Evaluation: 10/25/17 Time of Evaluation: 14:09 - Subjective Subjective: Patient seen and examined, asked to reconsult on patient seen previously for placement of gastrostomy feeding tube. He is currently in critical care unit, minimally responsive, s/p tracheostomy and PEG. As per nursing staff, there is no reported abdominal pain, nausea, vomiting, fever/chills. He currently has a rectal tube in place with dark brown liquid feces in bag. He is tolerating tube feeding without residuals. Review of vitals from today shows tachycardia. Review of systems not available, patient with advanced dementia and altered mental status. Objective - Vital Signs/Intake and Output Vital Signs (last 24 hours): Temp Pulse Resp BP Pulse Ox 98.7 F 118 H 31 H 109/48 L 100 10/25/17 10:00 10/25/17 11:15 10/25/17 11:15 10/25/17 11:15 10/25/17 11:15 Intake and Output: 10/25/17 10/25/17 06:59 18:59 Intake Total 1480 Output Total 100 Balance 1380 - Medications Medications: Current Medications Ascorbic Acid (Vitamin C 500 Mg Tab) 500 mg PEG DAILY [facility] Last Admin: 10/25/17 10:07 Dose: 500 mg Aspirin (Aspirin Chewable) 81 mg PO DAILY [facility] Last Admin: 10/25/17 10:00 Dose: 81 mg Calcitriol (Rocaltrol) 0.25 mcg PEG DAILY [facility] Last Admin: 10/25/17 10:07 Dose: 0.25 mcg Collagenase (Santyl) 1 gm TOP DAILY [facility] Last Admin: 10/25/17 10:28 Dose: 1 applic Epoetin [place] (Procrit) 10,000 unit IV MWF [facility] Last Admin: 10/24/17 18:01 Dose: 10,000 unit Famotidine (Pepcid) 20 mg PO DAILY [facility] Last Admin: 10/25/17 10:07 Dose: 20 mg Fluconazole (Diflucan Iv 100 Mg/50 Ml Ns) 50 mls @ 100 mls/hr IVPB Q24H [facility] Last Admin: 10/24/17 18:32 Dose: 100 mls/hr Insulin Aspart (Novolog) 0 unit SC Q6 [facility] PRN Reason: Protocol Last Admin: 10/25/17 13:00 Dose: 4 unit Insulin Detemir (Levemir) 17 unit SC Q12 [facility] Ipratropium [place] (Atrovent) 0.5 mg IH RQ6 [facility] Last Admin: 10/25/17 07:59 Dose: 0.5 mg Metoprolol Tartrate (Lopressor) 25 mg PEG BIDBS [facility] Last Admin: 10/25/17 09:58 Dose: Not Given Metronidazole (Flagyl) 500 mg GT Q8 [facility] Last Admin: 10/25/17 13:00 Dose: 500 mg Midodrine (Proamatine) 10 mg PO TID [facility] Last Admin: 10/25/17 13:04 Dose: 10 mg Multivitamins/Vitamin C (Multi-Delyn Liquid) 5 ml PEG DAILY [facility] Last Admin: 10/25/17 10:07 Dose: 5 ml Ondansetron HCl (Zofran Inj) 4 mg IVP Q8H PRN PRN Reason: Nausea/Vomiting Rosuvastatin Calcium (Crestor) 10 mg PO HS [facility] Last Admin: 10/24/17 21:25 Dose: 10 mg Saccharomyces Boulardii (Florastor) 250 mg PO BID [facility] Last Admin: 10/25/17 10:07 Dose: 250 mg - Labs Labs: 10/25/17 06:15 10/25/17 06:15 PT 13.4 SECONDS (9.7-12.2) H 10/14/17 16:30 INR 1.2 10/14/17 16:30 APTT 28 SECONDS (21-34) 10/14/17 16:30 - Constitutional Appears: No Acute Distress, Chronically Ill - Head Exam Head Exam: NORMAL INSPECTION - Eye Exam Eye Exam: Normal appearance - ENT Exam ENT Exam: Mucous Membranes Dry - Respiratory Exam Additional comments: coarse breath sounds b/l lung buchanan - Cardiovascular Exam Cardiovascular Exam: +S1, +S2 - GI/Abdominal Exam GI & Abdominal Exam: Soft, Normal Bowel Sounds Additional comments: non tender to palpation in four quadrants LUQ PEG site appears clean/dry - Extremities Exam Extremities Exam: Pedal Edema - Skin Skin Exam: Dry, Intact, Normal Color, Warm Assessment and Plan - Assessment and Plan (Free Text) Assessment: Prior history of cardiac arrest, respiratory failure s/p tracheostomy and PEG Atrial fibrillation on eliquis (held) ESRD on HD HTN DM with chronic lower extremity ulceration Anemia, stool occult blood + Dementia Plan: - Patient with multiple possible etiologies for progressive anemia including colitis, malignancy, PUD, AVM, ESRD etc - H/H stable without overt bleeding noted, continue to monitor - Continue with tube feeding as tolerated - Begin once daily PPI therapy - Continue with antibiotic therapy as per medical team - Case was discussed in detail with family members at bedside, currently no plan for endoscopic intervention given overall poor prognosis of patient with multiple medical comorbidities and prolonged hospital course. - Palliative care team scheduled to meet with family members today, will follow up recommendations - Will continue to monitor patient clinical course
--- NOTE | 2017-10-25 15:03 | CP.PCM.PN ---
<Xiomara Sanchezanda - Last Filed: 10/25/17 16:20> Subjective - Date & Time of Evaluation Date of Evaluation: 10/25/17 Time of Evaluation: 15:01 - Subjective Subjective: Progress Note for Dr. Barth Patient is seen and examined at bedside. Unable to obtain full ROS due to clinical status. Patient's RN explained that patient continues to have dark watery diarrhea with evidence of blood in stool. Per night resident, patient was given 500 cc bolus of fluid overnight due to low blood pressure (70s Systolic). Chest XRAY was done in the morning to check for fluid status. Dr. Cullen Barth, Maryann, Nephew, and of patient along with aids social worker sat down and had a family meeting about prognosis as well as explaining the different diagnoses that the patient has. and nephew understood. The of the patient made patient DNR/DNI. Objective - Vital Signs/Intake and Output Vital Signs (last 24 hours): Temp Pulse Resp BP Pulse Ox 98.7 F 118 H 31 H 109/48 L 100 10/25/17 10:00 10/25/17 11:15 10/25/17 11:15 10/25/17 11:15 10/25/17 11:15 Intake and Output: 10/25/17 10/25/17 06:59 18:59 Intake Total 1480 Output Total 100 Balance 1380 - Medications Medications: Current Medications Ascorbic Acid (Vitamin C 500 Mg Tab) 500 mg PEG DAILY [facility] Last Admin: 10/25/17 10:07 Dose: 500 mg Aspirin (Aspirin Chewable) 81 mg PO DAILY [facility] Last Admin: 10/25/17 10:00 Dose: 81 mg Calcitriol (Rocaltrol) 0.25 mcg PEG DAILY [facility] Last Admin: 10/25/17 10:07 Dose: 0.25 mcg Collagenase (Santyl) 1 gm TOP DAILY [facility] Last Admin: 10/25/17 10:28 Dose: 1 applic Epoetin Asim (Procrit) 10,000 unit IV MWF [facility] Last Admin: 10/24/17 18:01 Dose: 10,000 unit Fluconazole (Diflucan Iv 100 Mg/50 Ml Ns) 50 mls @ 100 mls/hr IVPB Q24H [facility] Last Admin: 10/24/17 18:32 Dose: 100 mls/hr Insulin Aspart (Novolog) 0 unit SC Q6 [facility] PRN Reason: Protocol Last Admin: 10/25/17 13:00 Dose: 4 unit Insulin Detemir (Levemir) 17 unit SC Q12 [facility] Ipratropium [place] (Atrovent) 0.5 mg IH RQ6 [facility] Last Admin: 10/25/17 14:11 Dose: Not Given Metoprolol Tartrate (Lopressor) 25 mg PEG BIDBS [facility] Last Admin: 10/25/17 09:58 Dose: Not Given Metronidazole (Flagyl) 500 mg GT Q8 [facility] Last Admin: 10/25/17 13:00 Dose: 500 mg Midodrine (Proamatine) 10 mg PO TID [facility] Last Admin: 10/25/17 13:04 Dose: 10 mg Multivitamins/Vitamin C (Multi-Delyn Liquid) 5 ml PEG DAILY [facility] Last Admin: 10/25/17 10:07 Dose: 5 ml Ondansetron HCl (Zofran Inj) 4 mg IVP Q8H PRN PRN Reason: Nausea/Vomiting Pantoprazole Sodium (Protonix Ec Tab) 40 mg PO DAILY [facility] Rosuvastatin Calcium (Crestor) 10 mg PO HS [facility] Last Admin: 10/24/17 21:25 Dose: 10 mg Saccharomyces Boulardii (Florastor) 250 mg PO BID [facility] Last Admin: 10/25/17 10:07 Dose: 250 mg - Labs Labs: 10/25/17 06:15 10/25/17 06:15 PT 13.4 SECONDS (9.7-12.2) H 10/14/17 16:30 INR 1.2 10/14/17 16:30 APTT 28 SECONDS (21-34) 10/14/17 16:30 - Constitutional Appears: Non-toxic - Head Exam Head Exam: NORMAL INSPECTION - Eye Exam Eye Exam: Normal appearance - ENT Exam ENT Exam: absent: Normal External Ear Exam Additional comments: patient has bandage over ulcer at the auricle - Cardiovascular Exam Cardiovascular Exam: +S1, +S2. absent: Bradycardia, Tachycardia - GI/Abdominal Exam GI & Abdominal Exam: Soft. absent: Tenderness Additional comments: PEG tube in place. no signs of erythema, drainage, induration - Extremities Exam Extremities Exam: Full ROM. absent: Pedal Edema - Neurological Exam Neurological Exam: Alert, Awake - Psychiatric Exam Psychiatric exam: Normal Affect, Normal Mood - Skin Skin Exam: Dry, Intact Additional comments: Unstageable Sacral Ulcer, Left Ear Auriclular ulcer, Right Heal Ulcer Assessment and Plan - Assessment and Plan (Free Text) Assessment: Assessment: 77M with ARDS s/p cardiac arrest, with pulmonary edema and NSTEMI ipratropium 0.02% (atrovent) 0.5mg IH RQ6H 10/24 CXR: questionable interval atelectasis or infiltrate in medial right base 10/23 mid bibasilar atelectasis. questionable small left-sided effusion Constipation, resolved Dulcolax 10mg MT Once PRN 10/21, patient had a dark brown BM yesterday, none today per nursing staff Discussed with nurse, sacral wound dressing changed this morning. Patient is having diarrhea, in the Flexseal. Cultures were taken, currently negative GI Dr. Wills consulted: does not feel that it would be in the best interest of the patient at this time to do any invasive procedure or examination. Diarrhea one dose of imodium given overnight. by night resident leukocytosis current cultures negative (blood, stool and wound) 10/14 urine culture: yeast f/u stool culture from rectoseal from 10/23 flagyl 500mg GT Q8H Saccharomyces boulardi (florastor) 250mg POBID Abnormal Stress test, history of AICD, hx CAD ASA 81mg POQD Rosuvastatin [id number] POQHS Atrial Flutter, resolved Cardiology Consult (Dr. Cortés) Aspirin 81mg Po daily c/w Eliquis 2.5mg PO bid Eliquis held today d/t Hgb 6.6 10/24 low hemoglobin Epoeitin asim [id number] u IV M, W, F Eliquis held today d/t Hgb 6.6 10/24 2uPRBC adminstered after dialysis today 10/24 Hgb 11.2 after 2uPRBC CXR does not show increased pleural effusion in comparison to predialysis Hypocalcemia Calcitriol 0.25 mcg PEG daily UTI, yeast positive 10/14 urine positive for yeast diflucan 100mg/50cc NS @ 55cc/hr QD Unstageable Sacral Ulcer, Left Ear Auriclular ulcer, Right Heal Ulcer Cefepime 1 gm D5W 50cc/hr QD Santyl HTN, medications held until blood pressure is higher Midodrine (proamatine) metoprolol 25mg PEG BID [facility] Novolog- Insulin aspar sc Q6 Levemir 8 units SC [facility] ISS glucose accuchecks Benadryl 25mg IVP once 10/24 zofran 4mg IVP Q8H PRN Prophylaxis Pepcid 20mg POQD Diet: tube feeds: Vital 1.2 initial rate 20cc/hr with goal rate 70cc/hr Patient is at goal rate Social Work Patient's new insurance does not accept LTAC. new insurance starts October 28 Patient to possible go to [facility] food service utility worker to provide letter to have daughter in [facility] get a visa to come to the [place] to see her father. f/u with food service utility worker. Family really wants the letter by tomorrow 10/25 Patient is to have Right IJ TLC placed by surgery team. Patient discussed with DR. Cullen Barth 10/25 Patient was made DNR/DNI by of Patient Currently waiting for [facility] to accept the patient Tagnela Sanchez DO PGY1 <Cullen Barth - Last Filed: 10/25/17 18:43> Objective - Vital Signs/Intake and Output Vital Signs (last 24 hours): Temp Pulse Resp BP Pulse Ox 99.4 F 125 H 40 H 111/43 L 99 10/25/17 14:00 10/25/17 16:00 10/25/17 16:00 10/25/17 15:15 10/25/17 16:00 Intake and Output: 10/25/17 10/25/17 06:59 18:59 Intake Total 1480 Output Total 100 Balance 1380 - Medications Medications: Current Medications Ascorbic Acid (Vitamin C 500 Mg Tab) 500 mg PEG DAILY [facility] Last Admin: 10/25/17 10:07 Dose: 500 mg Aspirin (Aspirin Chewable) 81 mg PO DAILY [facility] Last Admin: 10/25/17 10:00 Dose: 81 mg Calcitriol (Rocaltrol) 0.25 mcg PEG DAILY [facility] Last Admin: 10/25/17 10:07 Dose: 0.25 mcg Collagenase (Santyl) 1 gm TOP DAILY [facility] Last Admin: 10/25/17 10:28 Dose: 1 applic Epoetin Asim (Procrit) 10,000 unit IV MWF [facility] Last Admin: 10/24/17 18:01 Dose: 10,000 unit Fluconazole (Diflucan Iv 100 Mg/50 Ml Ns) 50 mls @ 100 mls/hr IVPB Q24H [facility] Last Admin: 10/24/17 18:32 Dose: 100 mls/hr Insulin Aspart (Novolog) 0 unit SC Q6 [facility] PRN Reason: Protocol Last Admin: 10/25/17 18:01 Dose: 4 unit Insulin Detemir (Levemir) 17 unit SC Q12 [facility] Ipratropium [place] (Atrovent) 0.5 mg IH RQ6 [facility] Last Admin: 10/25/17 14:11 Dose: Not Given Metoprolol Tartrate (Lopressor) 25 mg PEG BIDBS [facility] Last Admin: 10/25/17 09:58 Dose: Not Given Metronidazole (Flagyl) 500 mg GT Q8 [facility] Last Admin: 10/25/17 13:00 Dose: 500 mg Midodrine (Proamatine) 10 mg PO TID [facility] Last Admin: 10/25/17 18:01 Dose: 10 mg Multivitamins/Vitamin C (Multi-Delyn Liquid) 5 ml PEG DAILY [facility] Last Admin: 10/25/17 10:07 Dose: 5 ml Ondansetron HCl (Zofran Inj) 4 mg IVP Q8H PRN PRN Reason: Nausea/Vomiting Pantoprazole Sodium (Protonix Ec Tab) 40 mg PO DAILY [facility] Last Admin: 10/25/17 18:00 Dose: 40 mg Rosuvastatin Calcium (Crestor) 10 mg PO HS [facility] Last Admin: 10/24/17 21:25 Dose: 10 mg Saccharomyces Boulardii (Florastor) 250 mg PO BID [facility] Last Admin: 10/25/17 18:01 Dose: 250 mg - Labs Labs: 10/25/17 06:15 10/25/17 06:15 PT 13.4 SECONDS (9.7-12.2) H 10/14/17 16:30 INR 1.2 10/14/17 16:30 APTT 28 SECONDS (21-34) 10/14/17 16:30 Attending/Attestation - Attestation I have personally seen and examined this patient.: Yes I have fully participated in the care of the patient.: Yes I have reviewed all pertinent clinical information, including history, physical exam and plan: Yes Notes (Text): 10/25/17 18:31 Patient was seen and examined at 12:30 PM 10/25/17 ICU BED 18 Exam, assessment and plan were thoroughly gone over with the resident Assessments: 1). Hx Acute Respiratory Failure/ARDS/Cadiac Arrest/NSTEMI 2). Hx Abnormal Stress Test/AICD/CAD 3). Hx Atrial Flutter: stopped Eliquis 10/24/17 secondary significant drop in HgB. Heart Rate is elevated today secondary to the Hypotension 4). 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 Leukocytosis: still elevated but declined to 21.0. Blood Culture 10/22/17 is NGTD. Sputum culture 10/14/17 is negative. Stool cultures 10/20/17 are negative. Cefepime (10/12/17 through 10/24/17), Aztreonam (10/13/17 through )), Diflucan (10/14/17 currently), Flagyl (10/16/17 currently). F/U Midline Tip Culture 6). Hx Pneumonia 7). Hx HTN: Metoprolol was placed on hold secondary to the Hypotension. Continue Midodrine. Lisinopril was discontinued on 10/14/17 at the time of INSURANCE INSPECTOR for Hypotension 8). Hx CKD on HD . NO extra HD today due to the risk for further dropping the blood pressure 9). Hx DM: Would require 36 units from 6 AM 10/24/17 through 10/25/17 on ISS. Therefore Levemir increased to 17 Units SC AM and PM. 10). Hx HLD 11). Hx Anemia: Eliquis stopped 10/24/17 and was transfused 2 units PRBCs. CBC morning 10/25/17 dropped from 11.2 post trasfusion 10/24/17 to 10.2 morning . Stool Occult is Positive and GI Dr. Dsouza was reconsulted however no further workup recommended in light of patient current status. 12). Hx DVT 13). Hx UTI: Yeast on culture 10/24/17 and patient on Diflucan (10/14/17). He may be colonized with this. 14). Hx Alzheimer's Dimentia 15). Hx Sacral Ulcer: currently on Collagenase 16). Hx Right Heal Ulcer: improved on exam and area of necrosis is decreased since my last exam 10/02/17. Pravolon boots 17). Hx Elevated LFTs 18). Diarrhea: on Rectal Seal and producing dark brown/black stools that are watery. Stool Studies 10/20/17 are negative 19). Hx Hyponatremia: stabalized 20). Hx PEG Tube: Vital 1.5 at 50 ml/hour 21). Hx Hypocalcemia: Calcitriol 22). Prophylactic Measures: Vitamin C, Dulcolax PRN, Pepcid, MVI, Zofran PRN, Florastor Spoke with at length with patient's Nephew Patrick and with whom Family conference was held with Palliative Care Nurse Loni and International Coordinator Nehal. Explained the multiple chronic issues and that I did not believe that patient would show significant improvement in light of the Anemia, Heart Failure , Renal Failure. At end of the meeting patient's decided on DNR/DNI but then later stated that she needed more time to think. At this time patient is still FULL CODE. Palliative Care Nurse Loni will meet with again on . is requesting letter for her Daughter Libra Serrano so that it can be provided to her to obtain Visa to travel to the [facility] from [facility]. International Coordinator Nehal who was present during Family conference is aware. Plaster Machine Operator Demetria Angel informed me 10/24/17 that patient will have new Medicaid Insurance by 10/28/17 that will be accepted by [facility]. Unfortunately this insurance, I was informed, is not accepted by [facility]. Lo Tripathi).
--- NOTE | 2017-10-25 15:16 | CP.PCM.CON ---
History of Present Illness - History of Present Illness History of Present Illness: Palliative consult requested for goals of care discussion Patient is a 77 yo male admitted more than 2 months ago with SOB. During this hospital stay, patient's condition gradually declined despite all prudent medical interventions. Patient was given all aggressive treatment including PEG and tracheostomy. 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 The HD was initiated for kidney failure. The rectal bleeding and blood loss was the latest development. Due to multi organ failure comfort care was suggested and family meeting was held today to discuss it. PMH: HTN, CHF, DM, DVT , was on Eliquis, CKD, anemia Soc. Hx: , at bed side, daughter in DR Gibson. Hx: Father had HTN Review of Systems - Review of Systems All systems: reviewed and no additional remarkable complaints except Review of Systems: ROS obtained from nursing. As per nursing, patient continued to have loose, tarry stool over night. Past Patient History - Infectious Disease Hx of Infectious Diseases: None - Past Medical History & Family History Past Medical History?: Yes - Past Social History Smoking Status: Never Smoked Chewing Tobacco Use: No Cigar Use: No Alcohol: None Drugs: Denies Home Situation {Lives}: With Family - CARDIAC Hx Congestive Heart Failure: Yes Hx Hypertension: Yes - PULMONARY Hx Asthma: Yes - RENAL Hx Chronic Kidney Disease: Yes (REANAL INSUFFICIENCY) Hx Kidney Stones: Yes - ENDOCRINE/METABOLIC Hx Diabetes Mellitus Type 2: Yes - MUSCULOSKELETAL/RHEUMATOLOGICAL Hx Arthritis: Yes - GENITOURINARY/GYNECOLOGICAL Hx Genitourinary Disorders: Yes Hx Prostate Problems: Yes (ELEVATED PSA) - PSYCHIATRIC Hx Anxiety: Yes Hx Depression: Yes Hx Substance Use: No - SURGICAL HISTORY Hx Surgeries: Yes Other/Comment: pacemaker on - ANESTHESIA Hx Anesthesia: Yes Hx Anesthesia Reactions: No Hx Malignant Hyperthermia: No Meds Allergies/Adverse Reactions: Allergies Allergy/AdvReac Type Severity Reaction Status Date / Time No Known Allergies Allergy Verified 08/06/17 13:20 - Medications Medications: Current Medications Ascorbic Acid (Vitamin C 500 Mg Tab) 500 mg PEG DAILY [facility] Last Admin: 10/25/17 10:07 Dose: 500 mg Aspirin (Aspirin Chewable) 81 mg PO DAILY [facility] Last Admin: 10/25/17 10:00 Dose: 81 mg Calcitriol (Rocaltrol) 0.25 mcg PEG DAILY [facility] Last Admin: 11/28/17 10:07 Dose: 0.25 mcg Collagenase (Santyl) 1 gm TOP DAILY [facility] Last Admin: 10/25/17 10:28 Dose: 1 applic Epoetin Chencho (Procrit) 10,000 unit IV MWF [facility] Last Admin: 10/24/17 18:01 Dose: 10,000 unit Fluconazole (Diflucan Iv 100 Mg/50 Ml Ns) 50 mls @ 100 mls/hr IVPB Q24H [facility] Last Admin: 10/24/17 18:32 Dose: 100 mls/hr Insulin Aspart (Novolog) 0 unit SC Q6 [facility] PRN Reason: Protocol Last Admin: 10/25/17 13:00 Dose: 4 unit Insulin Detemir (Levemir) 17 unit SC Q12 [facility] Ipratropium [place] (Atrovent) 0.5 mg IH RQ6 [facility] Last Admin: 10/25/17 14:11 Dose: Not Given Metoprolol Tartrate (Lopressor) 25 mg PEG BIDBS [facility] Last Admin: 10/25/17 09:58 Dose: Not Given Metronidazole (Flagyl) 500 mg GT Q8 [facility] Last Admin: 10/25/17 13:00 Dose: 500 mg Midodrine (Proamatine) 10 mg PO TID [facility] Last Admin: 10/25/17 13:04 Dose: 10 mg Multivitamins/Vitamin C (Multi-Delyn Liquid) 5 ml PEG DAILY [facility] Last Admin: 10/25/17 10:07 Dose: 5 ml Ondansetron HCl (Zofran Inj) 4 mg IVP Q8H PRN PRN Reason: Nausea/Vomiting Pantoprazole Sodium (Protonix Ec Tab) 40 mg PO DAILY [facility] Rosuvastatin Calcium (Crestor) 10 mg PO HS [facility] Last Admin: 10/24/17 21:25 Dose: 10 mg Saccharomyces Boulardii (Florastor) 250 mg PO BID [facility] Last Admin: 10/25/17 10:07 Dose: 250 mg Physical Exam - Constitutional Appears: Chronically Ill - Head Exam Head Exam: ATRAUMATIC, NORMAL INSPECTION, NORMOCEPHALIC - Eye Exam Eye Exam: Normal appearance Pupil Exam: NORMAL ACCOMODATION - ENT Exam Additional comments: Tracheostomy - Neck Exam Additional comments: Tracheostomy - Respiratory Exam Additional comments: on MV support - Cardiovascular Exam Cardiovascular Exam: Tachycardia, REGULAR RHYTHM - GI/Abdominal Exam GI & Abdominal Exam: Hypoactive Bowel Sounds Additional comments: PEG - Rectal Exam Rectal Exam: Black Stool - Extremities Exam Extremities exam: Positive for: pedal edema - Back Exam Back exam: NORMAL INSPECTION - Neurological Exam Neurological exam: Motor Sensory Deficit - Psychiatric Exam Psychiatric exam: Flat Affect - Skin Skin Exam: Dry Additional comments: pressure sores Results - Vital Signs Recent Vital Signs: Last Vital Signs Temp 98.7 F 10/25/17 10:00 Pulse 118 H 10/25/17 11:15 Resp 31 H 10/25/17 11:15 BP 109/48 L 10/25/17 11:15 Pulse Ox 100 10/25/17 11:15 - Labs Result Diagrams: 10/25/17 06:15 10/25/17 06:15 Labs: Laboratory Results - last 24 hr 10/24/17 10/24/17 10/24/17 10:43 17:33 18:07 WBC RBC Hgb Hct MCV MCH MCHC RDW Plt Count MPV Neut % (Auto) Lymph % (Auto) [place] % (Auto) Eos % (Auto) Baso % (Auto) Neut # Lymph # [place] # Eos # Baso # Puncture Site pCO2 pO2 HCO3 ABG pH ABG Total CO2 ABG O2 Saturation ABG Base Excess ABG Hemoglobin ABG Carboxyhemoglobin POC ABG HHb (Measured) ABG Methemoglobin Uriel Test A-a O2 Difference Respiratory Index Hgb O2 Saturation FiO2 Sodium Potassium Chloride Carbon Dioxide Anion Gap BUN Creatinine Est GFR ( Amer) Est GFR (Non-Af Amer) POC Glucose (mg/dL) 210 H Random Glucose Calcium Total Bilirubin AST ALT Alkaline Phosphatase Total Protein Albumin Globulin Albumin/Globulin Ratio Stool Occult Blood Positive H Blood Type B POSITIVE Antibody Screen Negative 10/24/17 10/24/17 10/25/17 22:22 23:57 00:46 WBC 27.4 H RBC 4.06 L Hgb 11.2 L D Hct 35.6 MCV 87.8 MCH 27.7 MCHC 31.6 L RDW 21.2 H Plt Count 498 H MPV 8.1 Neut % (Auto) 80.5 H Lymph % (Auto) 12.9 L [place] % (Auto) 5.6 Eos % (Auto) 0.5 Baso % (Auto) 0.5 Neut # 22.0 H Lymph # 3.5 [place] # 1.5 H Eos # 0.1 Baso # 0.2 Puncture Site Lb pCO2 32 L pO2 71 L HCO3 29.3 H ABG pH 7.55 H ABG Total CO2 29.0 H ABG O2 Saturation 97.7 ABG Base Excess 5.6 H ABG Hemoglobin 9.8 L ABG Carboxyhemoglobin 2.4 H POC ABG HHb (Measured) 2.2 ABG Methemoglobin 1.3 Uriel Test Na A-a O2 Difference 139.0 Respiratory Index 2.0 Hgb O2 Saturation 94.1 L FiO2 35.0 Sodium Potassium Chloride Carbon Dioxide Anion Gap BUN Creatinine Est GFR ( Amer) Est GFR (Non-Af Amer) POC Glucose (mg/dL) 328 H Random Glucose Calcium Total Bilirubin AST ALT Alkaline Phosphatase Total Protein Albumin Globulin Albumin/Globulin Ratio Stool Occult Blood Blood Type Antibody Screen 10/25/17 10/25/17 10/25/17 06:10 06:15 06:15 WBC 21.0 H RBC 3.58 L Hgb 10.2 L Hct 31.4 L MCV 87.7 MCH 28.4 MCHC 32.4 L RDW 21.2 H Plt Count 446 H MPV 8.4 Neut % (Auto) 84.2 H Lymph % (Auto) 10.3 L [place] % (Auto) 4.7 Eos % (Auto) 0.5 Baso % (Auto) 0.3 Neut # 17.7 H Lymph # 2.2 [place] # 1.0 H Eos # 0.1 Baso # 0.1 Puncture Site pCO2 pO2 HCO3 ABG pH ABG Total CO2 ABG O2 Saturation ABG Base Excess ABG Hemoglobin ABG Carboxyhemoglobin POC ABG HHb (Measured) ABG Methemoglobin Uriel Test A-a O2 Difference Respiratory Index Hgb O2 Saturation FiO2 Sodium 134 Potassium 3.2 L Chloride 96 L Carbon Dioxide 26 Anion Gap 15 BUN 42 H Creatinine 2.8 H Est GFR ( Amer) 27 Est GFR (Non-Af Amer) 22 POC Glucose (mg/dL) 232 H Random Glucose 242 H Calcium 7.4 L Total Bilirubin 0.6 AST 36 ALT 34 Alkaline Phosphatase 98 Total Protein 6.9 Albumin 2.9 L Globulin 4.0 H Albumin/Globulin Ratio 0.7 L Stool Occult Blood Blood Type Antibody Screen 10/25/17 11:32 WBC RBC Hgb Hct MCV MCH MCHC RDW Plt Count MPV Neut % (Auto) Lymph % (Auto) [place] % (Auto) Eos % (Auto) Baso % (Auto) Neut # Lymph # [place] # Eos # Baso # Puncture Site pCO2 pO2 HCO3 ABG pH ABG Total CO2 ABG O2 Saturation ABG Base Excess ABG Hemoglobin ABG Carboxyhemoglobin POC ABG HHb (Measured) ABG Methemoglobin Uriel Test A-a O2 Difference Respiratory Index Hgb O2 Saturation FiO2 Sodium Potassium Chloride Carbon Dioxide Anion Gap BUN Creatinine Est GFR ( Amer) Est GFR (Non-Af Amer) POC Glucose (mg/dL) 342 H Random Glucose Calcium Total Bilirubin AST ALT Alkaline Phosphatase Total Protein Albumin Globulin Albumin/Globulin Ratio Stool Occult Blood Blood Type Antibody Screen Assessment & Plan - Assessment and Plan (Free Text) Assessment: Palliative consult There is no Advance directive/ Living will on chart, PPS 0% I reviewed medical records, all diagnostic studis, examind patient in the bed and had long discussion with patient's and later again in presence of her nephew, as she requested. Patient is unresponsive to stimuli, looking chronically ill. Patient is on full life support; PEG and MV support. Patient is with persistent rectal bleeding and Hb drops despite 2 U of blood transfused last night. Doctor Johann GI suggested comfort care only as patient was not candidate for any further aggressive treatment. With patient's at bed side, using In [employer] translation I reviewed patient' s clinical condition and elicited her expectations of this hospitalization. The admitted being aware of his very complex condition and cried. I offered support. The was explained that at this stage of patient's disease with multi organ failure the comfort and supportive care was the best care we could offer at present. I corrected her knowledge regarding the meaning of comfort care. She requested her nephew Patrick was present. When we met 2nd time, Patrick nephew was there, Doctor Tab Berman, Doctor Hensley and Nehal from . It as suggested that once the health insurance was established, patient should be transferred either to [place] on Hospice care or to LTAC, what family preferred more. Code status discussed. While crying, said if it comes to the point that her ;s heart stops, she would prefer to let him go. POLST offered to be completed and asked for extra time. Impression * This is a chronically ill man with multi organ failure and terminal prognosis * There is significant loss of quality of life * Patient's wishes for the end of life care are not known * Patient's is advocating for him . is overwhelmed with emotions and fear of " being left alone', and is unable to fully accept the severity of condition * The relies on support from nephew Patrick , who is readily helping * There is psychosocial distress among closest family members and anticipatory grieving Suggestions * Would promote comfort and treat symptoms * The needs constant reassurance of all appropriate measures being in place to promote comfort * Sacral sore care as per wound nurse * pastoral care for spiritual support * patient should be made DNR and allowed natural if his heart stops I will continue to work with and offer support.
--- NOTE | 2017-10-25 17:40 | CP.PCM.PN ---
Subjective - Date & Time of Evaluation Date of Evaluation: 10/25/17 Time of Evaluation: 14:00 - Subjective Subjective: Seen and examined in the intensive care unit. Status post tracheostomy on ventilator support Status post transfusion of packed RBCs Off anticoagulation Continue antibiotics per infectious disease Follow-up H&H Patient DNR as per family request Prognosis poor Objective - Vital Signs/Intake and Output Vital Signs (last 24 hours): Temp Pulse Resp BP Pulse Ox 99.4 F 125 H 40 H 111/43 L 99 10/25/17 14:00 10/25/17 16:00 10/25/17 16:00 10/25/17 15:15 10/25/17 16:00 Intake and Output: 10/25/17 10/25/17 06:59 18:59 Intake Total 1480 Output Total 100 Balance 1380 - Medications Medications: Current Medications Ascorbic Acid (Vitamin C 500 Mg Tab) 500 mg PEG DAILY [facility] Last Admin: 10/25/17 10:07 Dose: 500 mg Aspirin (Aspirin Chewable) 81 mg PO DAILY [facility] Last Admin: 10/25/17 10:00 Dose: 81 mg Calcitriol (Rocaltrol) 0.25 mcg PEG DAILY [facility] Last Admin: 10/25/17 10:07 Dose: 0.25 mcg Collagenase (Santyl) 1 gm TOP DAILY [facility] Last Admin: 10/25/17 10:28 Dose: 1 applic Epoetin Chencho (Procrit) 10,000 unit IV MWF [facility] Last Admin: 10/24/17 18:01 Dose: 10,000 unit Fluconazole (Diflucan Iv 100 Mg/50 Ml Ns) 50 mls @ 100 mls/hr IVPB Q24H [facility] Last Admin: 10/24/17 18:32 Dose: 100 mls/hr Insulin Aspart (Novolog) 0 unit SC Q6 [facility] PRN Reason: Protocol Last Admin: 10/25/17 13:00 Dose: 4 unit Insulin Detemir (Levemir) 17 unit SC Q12 [facility] Ipratropium [place] (Atrovent) 0.5 mg IH RQ6 [facility] Last Admin: 10/25/17 14:11 Dose: Not Given Metoprolol Tartrate (Lopressor) 25 mg PEG BIDBS [facility] Last Admin: 10/25/17 09:58 Dose: Not Given Metronidazole (Flagyl) 500 mg GT Q8 [facility] Last Admin: 10/25/17 13:00 Dose: 500 mg Midodrine (Proamatine) 10 mg PO TID [facility] Last Admin: 10/25/17 13:04 Dose: 10 mg Multivitamins/Vitamin C (Multi-Delyn Liquid) 5 ml PEG DAILY [facility] Last Admin: 10/25/17 10:07 Dose: 5 ml Ondansetron HCl (Zofran Inj) 4 mg IVP Q8H PRN PRN Reason: Nausea/Vomiting Pantoprazole Sodium (Protonix Ec Tab) 40 mg PO DAILY [facility] Rosuvastatin Calcium (Crestor) 10 mg PO HS [facility] Last Admin: 10/24/17 21:25 Dose: 10 mg Saccharomyces Boulardii (Florastor) 250 mg PO BID [facility] Last Admin: 10/25/17 10:07 Dose: 250 mg - Labs Labs: 10/25/17 06:15 10/25/17 06:15 PT 13.4 SECONDS (9.7-12.2) H 10/14/17 16:30 INR 1.2 10/14/17 16:30 APTT 28 SECONDS (21-34) 10/14/17 16:30 Assessment and Plan (1) Hypotension (arterial) Status: Acute (2) Pneumonia Status: Acute (3) Cardiac arrest Status: Acute (4) History of DVT (deep vein thrombosis) Status: Acute (5) CKD (chronic kidney disease) Status: Chronic (6) CHF (congestive heart failure) Status: Acute
[2017-10-25] MEDS: Pantoprazole 40 mg EC Tab PO SCH (18:00)
[2017-10-25] MEDS: Fluconazole IV 100mg/50 ml NS 50 ML IVPB SCH (19:33)
[2017-10-25] MEDS: Loperamide Hydrochloride 1 mg/5 ml Cup PO PRN (21:53)
--- NOTE | 2017-10-25 22:23 | CP.PCM.PN ---
Subjective - Date & Time of Evaluation Date of Evaluation: 10/25/17 Time of Evaluation: 10:15 - Subjective Subjective: Patient seen and evaluated No improvement in clinical status at bedside Objective - Vital Signs/Intake and Output Vital Signs (last 24 hours): Temp Pulse Resp BP Pulse Ox 99.4 F 128 H 37 H 115/51 L 100 10/25/17 18:00 10/25/17 19:15 10/25/17 19:15 10/25/17 19:16 10/25/17 19:15 Intake and Output: 10/25/17 10/26/17 18:59 06:59 Intake Total 1800 Output Total 600 Balance 1200 - Medications Medications: Current Medications Ascorbic Acid (Vitamin C 500 Mg Tab) 500 mg PEG DAILY [facility] Last Admin: 10/25/17 10:07 Dose: 500 mg Aspirin (Aspirin Chewable) 81 mg PO DAILY [facility] Last Admin: 10/25/17 10:00 Dose: 81 mg Calcitriol (Rocaltrol) 0.25 mcg PEG DAILY [facility] Last Admin: 10/25/17 10:07 Dose: 0.25 mcg Collagenase (Santyl) 1 gm TOP DAILY [facility] Last Admin: 10/25/17 10:28 Dose: 1 applic Epoetin Chencho (Procrit) 10,000 unit IV MWF [facility] Last Admin: 10/24/17 18:01 Dose: 10,000 unit Fluconazole (Diflucan Iv 100 Mg/50 Ml Ns) 50 mls @ 100 mls/hr IVPB Q24H [facility] Last Admin: 10/25/17 19:33 Dose: 100 mls/hr Insulin Aspart (Novolog) 0 unit SC Q6 [facility] PRN Reason: Protocol Last Admin: 10/25/17 18:01 Dose: 4 unit Insulin Detemir (Levemir) 17 unit SC Q12 [facility] Last Admin: 10/25/17 21:53 Dose: 17 unit Ipratropium [place] (Atrovent) 0.5 mg IH RQ6 [facility] Last Admin: 10/25/17 19:53 Dose: 0.5 mg Loperamide HCl (Imodium) 1 mg PO Q4H PRN PRN Reason: Diarrhea Last Admin: 10/25/17 21:53 Dose: 1 mg Metoprolol Tartrate (Lopressor) 25 mg PEG BIDBS [facility] Last Admin: 10/25/17 09:58 Dose: Not Given Metronidazole (Flagyl) 500 mg GT Q8 [facility] Last Admin: 10/25/17 21:52 Dose: 500 mg Midodrine (Proamatine) 10 mg PO TID [facility] Last Admin: 10/25/17 18:01 Dose: 10 mg Multivitamins/Vitamin C (Multi-Delyn Liquid) 5 ml PEG DAILY [facility] Last Admin: 10/25/17 10:07 Dose: 5 ml Ondansetron HCl (Zofran Inj) 4 mg IVP Q8H PRN PRN Reason: Nausea/Vomiting Pantoprazole Sodium (Protonix Ec Tab) 40 mg PO DAILY [facility] Last Admin: 10/25/17 18:00 Dose: 40 mg Rosuvastatin Calcium (Crestor) 10 mg PO HS [facility] Last Admin: 10/25/17 21:52 Dose: 10 mg Saccharomyces Boulardii (Florastor) 250 mg PO BID [facility] Last Admin: 10/25/17 18:01 Dose: 250 mg - Labs Labs: 10/25/17 06:15 10/25/17 06:15 PT 13.4 SECONDS (9.7-12.2) H 10/14/17 16:30 INR 1.2 10/14/17 16:30 APTT 28 SECONDS (21-34) 10/14/17 16:30
[2017-10-26] MEDS: (Novolog) Insulin Aspart, Recombinant 100 u/ml 10 ml vial SC SCH ×4 (00:55→17:53)
[2017-10-26] MEDS: Ipratropium 0.02% Inhal Soln (0.5 mg/2.5 ml) UD IH SCH ×4 (01:02→20:51)
[2017-10-26 06:38] LABS: BASO # 0.1 K/uL (0.0-0.2); BASO % 0.5 % (0.0-2.0); EOS # 0.2 K/uL (0.0-0.7); EOS % 0.8 % (0.0-4.0); LYMPH # 3.9 K/uL (1.0-4.3); LYMPH % 15.1 % (20.0-40.0); MEAN CELL VOLUME 89.1 fL (80.0-94.0); MEAN CORPUSCULAR HEMOGLOBIN 28.1 pg (27.0-31.0); MEAN CORPUSCULAR HGB CONC 31.6 g/dL (33.0-37.0); MEAN PLATELET VOLUME 8.3 fL (7.2-11.7); MONO # 1.2 K/uL (0.0-0.8); MONO % 4.7 % (0.0-10.0); NRBC % 1.2 % (0.0-2.0); RED CELL DISTRIBUTION WIDTH 22.2 % (11.5-14.5); WHITE BLOOD COUNT 25.5 K/uL (4.8-10.8)
[2017-10-26 07:02] LABS: ALB/GLOB RATIO 0.7 (1.0-2.1); BILIRUBIN,TOTAL 0.6 mg/dL (0.2-1.3); CALCIUM 7.8 mg/dl (8.6-10.4); MAGNESIUM 2.1 mg/dL (1.6-2.3); POTASSIUM 3.7 mmol/L (3.6-5.2)
--- NOTE | 2017-10-26 08:44 | CP.PCM.PN ---
<Carmencita Alvarez - Last Filed: 10/26/17 08:52> Subjective - Date & Time of Evaluation Date of Evaluation: 10/26/17 Time of Evaluation: 08:41 - Subjective Subjective: Carmencita Alvarez, PGY1, GI Progress Note for Dr Dsouza: Pt seen and examined at bedside. No acute events overnight. No tube feeds overnight as pt is NPO, for debridement of sacral decubitus ulcers today. Pt had 800 cc of brown/green loose stool in flexiseal/24 hours. Pt has been receiving Imodium for diarrhea overnight. Pt responds to tactile/verbal stimuli , follows simple commands. HD today. 12 point ROS unobtainable bc pt's AMS/trach. Objective - Vital Signs/Intake and Output Vital Signs (last 24 hours): Temp Pulse Resp BP Pulse Ox 99.7 F H 124 H 24 111/40 L 100 10/26/17 04:00 10/26/17 04:00 10/26/17 04:00 10/26/17 05:16 10/26/17 04:00 Intake and Output: 10/26/17 10/26/17 06:59 18:59 Intake Total 450 Output Total 200 Balance 250 - Medications Medications: Current Medications Ascorbic Acid (Vitamin C 500 Mg Tab) 500 mg PEG DAILY [facility] Last Admin: 10/25/17 10:07 Dose: 500 mg Aspirin (Aspirin Chewable) 81 mg PO DAILY [facility] Last Admin: 10/25/17 10:00 Dose: 81 mg Calcitriol (Rocaltrol) 0.25 mcg PEG DAILY [facility] Last Admin: 10/25/17 10:07 Dose: 0.25 mcg Collagenase (Santyl) 1 gm TOP DAILY [facility] Last Admin: 10/25/17 10:28 Dose: 1 applic Epoetin [place] (Procrit) 10,000 unit IV MWF [facility] Last Admin: 10/24/17 18:01 Dose: 10,000 unit Fluconazole (Diflucan Iv 100 Mg/50 Ml Ns) 50 mls @ 100 mls/hr IVPB Q24H [facility] Last Admin: 10/25/17 19:33 Dose: 100 mls/hr Insulin Aspart (Novolog) 0 unit SC Q6 [facility] PRN Reason: Protocol Last Admin: 10/26/17 06:24 Dose: 3 unit Insulin Detemir (Levemir) 17 unit SC Q12 [facility] Last Admin: 10/25/17 21:53 Dose: 17 unit Ipratropium [place] (Atrovent) 0.5 mg IH RQ6 [facility] Last Admin: 10/26/17 07:15 Dose: 0.5 mg Loperamide HCl (Imodium) 1 mg PO Q4H PRN PRN Reason: Diarrhea Last Admin: 10/25/17 21:53 Dose: 1 mg Metoprolol Tartrate (Lopressor) 25 mg PEG BIDBS [facility] Last Admin: 10/25/17 09:58 Dose: Not Given Metronidazole (Flagyl) 500 mg GT Q8 [facility] Last Admin: 10/26/17 05:01 Dose: Not Given Midodrine (Proamatine) 10 mg PO TID [facility] Last Admin: 10/25/17 18:01 Dose: 10 mg Multivitamins/Vitamin C (Multi-Delyn Liquid) 5 ml PEG DAILY [facility] Last Admin: 10/25/17 10:07 Dose: 5 ml Ondansetron HCl (Zofran Inj) 4 mg IVP Q8H PRN PRN Reason: Nausea/Vomiting Pantoprazole Sodium (Protonix Ec Tab) 40 mg PO DAILY [facility] Last Admin: 10/25/17 18:00 Dose: 40 mg Rosuvastatin Calcium (Crestor) 10 mg PO HS [facility] Last Admin: 10/25/17 21:52 Dose: 10 mg Saccharomyces Boulardii (Florastor) 250 mg PO BID [facility] Last Admin: 10/25/17 18:01 Dose: 250 mg - Labs Labs: 10/26/17 06:29 10/26/17 06:29 PT 13.4 SECONDS (9.7-12.2) H 10/14/17 16:30 INR 1.2 10/14/17 16:30 APTT 28 SECONDS (21-34) 10/14/17 16:30 - Constitutional Appears: Older Than Stated Age, Chronically Ill - Head Exam Head Exam: ATRAUMATIC, NORMOCEPHALIC - Eye Exam Eye Exam: PERRL. absent: Conjunctival injection, Scleral icterus Pupil Exam: PERRL - ENT Exam ENT Exam: Mucous Membranes Moist - Respiratory Exam Respiratory Exam: Decreased Breath Sounds, Rhonchi - Cardiovascular Exam Cardiovascular Exam: Tachycardia, +S1, +S2. absent: Murmur - GI/Abdominal Exam GI & Abdominal Exam: Distended, Normal Bowel Sounds. absent: Firm, Guarding, Rigid, Tenderness, Mass, Organomegaly - Extremities Exam Extremities Exam: absent: Calf Tenderness, Pedal Edema - Neurological Exam Neurological Exam: Altered, Awake - Psychiatric Exam Psychiatric exam: absent: Normal Affect - Skin Skin Exam: Dry, Normal Color, Warm. absent: Pallor Assessment and Plan - Assessment and Plan (Free Text) Assessment: 77 years old male with hx of CAD s/p stents, CKD, pacemaker, prior DVT, atrial flutter, admitted for ARDS s/p cardiac arrest, s/p PEG and trach this admission , found to have dropping hemoglobin, diarrhea, and FOBT+: - 2/2 likely flexeseal tube insertion trauma vs colitis vs PUD vs AVM vs ESRD vs malignancy - NPO overnight for debridement of sacral decub procedure today. Otherwise, tolerating Vital 1.5 tube feeds at 60/hr. No resiudals. Abd soft, + BS. Cont to monitor. - Continue with IV Protonix daily - C/w IV abx as per primary team - Continue with Imodium prn. Bedside nurse advised to give it as needed. - Palliative team on board. Discussed with family regarding comfort/supportive care and DNR/DNI status. Pt's to take some more time to decide. Plan to go to [place] hospice care or LTAC, once health insurance established. - Stool cultures and ova/parasites 10/20 neg. C diff negative as well. - H/H currently stable s/p 2 units prbcs transfusion 10/24, cont to monitor. - If hemoglobin drops further, will consider further procedures. - Cont to monitor patient's hospital course. Discussed with GI fellow and attending, Dr Dsouza. Carmencita Alvarez, PGY1 Plan: - 2/2 likely flexiseal tube insertion trauma vs colitis vs PUD vs AVM vs ESRD vs malignancy - NPO overnight for debridement of sacral decub procedure today. Otherwise, tolerating Vital 1.5 tube feeds at 60/hr. No resiudals. Abd soft, + BS. Cont to monitor. - Continue with IV Protonix daily - C/w IV abx as per primary team - Continue with Imodium prn. Bedside nurse advised to give it as needed. - Palliative team on board. Discussed with family regarding comfort/supportive care and DNR/DNI status. Pt's to take some more time to decide. Plan to go to [place] hospice care or LTAC, once health insurance established. - Stool cultures and ova/parasites 10/20 neg. C diff negative as well. - H/H currently stable s/p 2 units prbcs transfusion 10/24, cont to monitor. - If hemoglobin drops further, will consider further procedures. - Cont to monitor patient's hospital course. Discussed with GI fellow and attending, Dr Dsouza. Carmencita Alvarez, PGY1 <Stefan Dsouza - Last Filed: 10/26/17 12:36> Objective - Vital Signs/Intake and Output Vital Signs (last 24 hours): Temp Pulse Resp BP Pulse Ox 98.5 F 126 H 32 H 99/35 L 95 10/26/17 08:00 10/26/17 09:11 10/26/17 09:11 10/26/17 09:11 10/26/17 09:11 Intake and Output: 10/26/17 10/26/17 06:59 18:59 Intake Total 450 Output Total 200 Balance 250 - Medications Medications: Current Medications Ascorbic Acid (Vitamin C 500 Mg Tab) 500 mg PEG DAILY [facility] Last Admin: 10/25/17 10:07 Dose: 500 mg Aspirin (Aspirin Chewable) 81 mg PO DAILY [facility] Last Admin: 10/25/17 10:00 Dose: 81 mg Calcitriol (Rocaltrol) 0.25 mcg PEG DAILY [facility] Last Admin: 10/25/17 10:07 Dose: 0.25 mcg Collagenase (Santyl) 1 gm TOP DAILY [facility] Last Admin: 10/25/17 10:28 Dose: 1 applic Epoetin Chencho (Procrit) 10,000 unit IV MWF [facility] Last Admin: 10/24/17 18:01 Dose: 10,000 unit Fluconazole (Diflucan Iv 100 Mg/50 Ml Ns) 50 mls @ 100 mls/hr IVPB Q24H [facility] Last Admin: 10/25/17 19:33 Dose: 100 mls/hr Insulin Aspart (Novolog) 0 unit SC Q6 [facility] PRN Reason: Protocol Last Admin: 10/26/17 06:24 Dose: 3 unit Insulin Detemir (Levemir) 17 unit SC Q12 [facility] Last Admin: 10/25/17 21:53 Dose: 17 unit Ipratropium [place] (Atrovent) 0.5 mg IH RQ6 [facility] Last Admin: 10/26/17 07:15 Dose: 0.5 mg Loperamide HCl (Imodium) 1 mg PO Q4H PRN PRN Reason: Diarrhea Last Admin: 10/26/17 09:00 Dose: 1 mg Metoprolol Tartrate (Lopressor) 25 mg PEG BIDBS [facility] Last Admin: 10/25/17 09:58 Dose: Not Given Metronidazole (Flagyl) 500 mg GT Q8 [facility] Last Admin: 10/26/17 05:01 Dose: Not Given Midodrine (Proamatine) 10 mg PO TID [facility] Last Admin: 10/26/17 09:57 Dose: 10 mg Multivitamins/Vitamin C (Multi-Delyn Liquid) 5 ml PEG DAILY [facility] Last Admin: 10/25/17 10:07 Dose: 5 ml Ondansetron HCl (Zofran Inj) 4 mg IVP Q8H PRN PRN Reason: Nausea/Vomiting Pantoprazole Sodium (Protonix Ec Tab) 40 mg PO DAILY [facility] Last Admin: 10/25/17 18:00 Dose: 40 mg Rosuvastatin Calcium (Crestor) 10 mg PO HS [facility] Last Admin: 10/25/17 21:52 Dose: 10 mg Saccharomyces Boulardii (Florastor) 250 mg PO BID [facility] Last Admin: 10/25/17 18:01 Dose: 250 mg - Labs Labs: 10/26/17 06:29 10/26/17 06:29 PT 13.4 SECONDS (9.7-12.2) H 10/14/17 16:30 INR 1.2 10/14/17 16:30 APTT 28 SECONDS (21-34) 10/14/17 16:30 Attending/Attestation - Attestation I have personally seen and examined this patient.: Yes I have fully participated in the care of the patient.: Yes I have reviewed all pertinent clinical information, including history, physical exam and plan: Yes Notes (Text): 10/26/17 12:32 77 years old male with h/o CAD s/p stents, CKD, s/p pacemaker, h/o DVT, aflutter admitted with ARDS c/b cardiac arrest s/p trach and PEG, prolonged hospital course with diarrhea and hematochezia. 1. Hematochezia 2. Diarrhea 3. Anemia Plan: -suspect the rectal bleeding is due to the flexiseal as it started after insertion -would recommend supportive measures for now, monitor for further bleeding, stool is currently brown -anemia is stable -if he has significant bleeding and the family wants aggressive measures, then a sigmoidoscopy could be performed for further eval/rx, but would not do anything if the bleeding subsided -stool eval for infectious diarrhea has been negative -would recommend immodium as needed for the diarrhea -may continue PPI for stress ulcer prophylaxis -appreciate palliative evaluation
[2017-10-26] MEDS: Loperamide Hydrochloride 1 mg/5 ml Cup PO PRN (09:00)
[2017-10-26] MEDS: Insulin Detemir 100 units/ml Vial (Levemir) SC SCH ×2 (10:00→22:21)
[2017-10-26] MEDS: Collagenase 250 Units/gm Ointment(30 gm) TOP SCH (10:00)
--- NOTE | 2017-10-26 10:01 | CP.PCM.PN ---
Subjective - Date & Time of Evaluation Date of Evaluation: 10/26/17 (n) Time of Evaluation: 10:00 - Subjective Subjective: progress note Patient seen and examined at bedside. Unable to obtain ros due to clinical status. Less secretions than yesterday. Patient appears similar to yesterday on physical exam. Patient had a fever overnight. Objective - Vital Signs/Intake and Output Vital Signs (last 24 hours): Temp Pulse Resp BP Pulse Ox 98.5 F 126 H 32 H 99/35 L 95 10/26/17 08:00 10/26/17 09:11 10/26/17 09:11 10/26/17 09:11 10/26/17 09:11 Intake and Output: 10/26/17 10/26/17 06:59 18:59 Intake Total 450 Output Total 200 Balance 250 - Medications Medications: Current Medications Ascorbic Acid (Vitamin C 500 Mg Tab) 500 mg PEG DAILY [facility] Last Admin: 10/25/17 10:07 Dose: 500 mg Aspirin (Aspirin Chewable) 81 mg PO DAILY [facility] Last Admin: 10/25/17 10:00 Dose: 81 mg Calcitriol (Rocaltrol) 0.25 mcg PEG DAILY [facility] Last Admin: 10/25/17 10:07 Dose: 0.25 mcg Collagenase (Santyl) 1 gm TOP DAILY [facility] Last Admin: 10/25/17 10:28 Dose: 1 applic Epoetin Asim (Procrit) 10,000 unit IV MWF [facility] Last Admin: 10/24/17 18:01 Dose: 10,000 unit Fluconazole (Diflucan Iv 100 Mg/50 Ml Ns) 50 mls @ 100 mls/hr IVPB Q24H [facility] Last Admin: 10/25/17 19:33 Dose: 100 mls/hr Insulin Aspart (Novolog) 0 unit SC Q6 [facility] PRN Reason: Protocol Last Admin: 10/26/17 06:24 Dose: 3 unit Insulin Detemir (Levemir) 17 unit SC Q12 [facility] Last Admin: 10/25/17 21:53 Dose: 17 unit Ipratropium [place] (Atrovent) 0.5 mg IH RQ6 [facility] Last Admin: 10/26/17 07:15 Dose: 0.5 mg Loperamide HCl (Imodium) 1 mg PO Q4H PRN PRN Reason: Diarrhea Last Admin: 10/26/17 09:00 Dose: 1 mg Metoprolol Tartrate (Lopressor) 25 mg PEG BIDBS [facility] Last Admin: 10/25/17 09:58 Dose: Not Given Metronidazole (Flagyl) 500 mg GT Q8 [facility] Last Admin: 10/26/17 05:01 Dose: Not Given Midodrine (Proamatine) 10 mg PO TID [facility] Last Admin: 10/26/17 09:57 Dose: 10 mg Multivitamins/Vitamin C (Multi-Delyn Liquid) 5 ml PEG DAILY [facility] Last Admin: 10/25/17 10:07 Dose: 5 ml Ondansetron HCl (Zofran Inj) 4 mg IVP Q8H PRN PRN Reason: Nausea/Vomiting Pantoprazole Sodium (Protonix Ec Tab) 40 mg PO DAILY [facility] Last Admin: 10/25/17 18:00 Dose: 40 mg Rosuvastatin Calcium (Crestor) 10 mg PO HS [facility] Last Admin: 10/25/17 21:52 Dose: 10 mg Saccharomyces Boulardii (Florastor) 250 mg PO BID [facility] Last Admin: 10/25/17 18:01 Dose: 250 mg - Labs Labs: 10/26/17 06:29 10/26/17 06:29 PT 13.4 SECONDS (9.7-12.2) H 10/14/17 16:30 INR 1.2 10/14/17 16:30 APTT 28 SECONDS (21-34) 10/14/17 16:30 - Constitutional Appears: Non-toxic - Head Exam Head Exam: ATRAUMATIC - Eye Exam Eye Exam: Normal appearance - Respiratory Exam Respiratory Exam: Decreased Breath Sounds, Clear to Ausculation Bilateral - Cardiovascular Exam Cardiovascular Exam: REGULAR RHYTHM, +S1, +S2 - GI/Abdominal Exam GI & Abdominal Exam: Distended, Soft Additional comments: PEG tube in place. no erythema, drainage. - Exam Additional comments: rectoseal in place. black, liquid stool output - Neurological Exam Neurological Exam: Awake - Psychiatric Exam Psychiatric exam: Flat Affect. absent: Normal Affect - Skin Skin Exam: Dry Additional comments: ulcers showing yellow necrotic tissue. Assessment and Plan - Assessment and Plan (Free Text) Plan: 77M with ARDS s/p cardiac arrest, with pulmonary edema and NSTEMI ipratropium 0.02% (atrovent) 0.5mg IH RQ6H 10/24 CXR: questionable interval atelectasis or infiltrate in medial right base 10/23 mid bibasilar atelectasis. questionable small left-sided effusion CXR left lobe atelectasis v pna f/u with DR. Lawrence for CXR results. do you think we should start cefepime and aztreonam because of CXR fever, wbc, blood Constipation, resolved Dulcolax 10mg HI Once PRN 10/21, patient had a dark brown BM yesterday, none today per nursing staff Discussed with nurse, sacral wound dressing changed this morning. Patient is having diarrhea, in the Flexseal. Cultures were taken, currently negative GI Dr. Wills consulted: does not feel that it would be in the best interest of the patient at this time to do any invasive procedure or examination. Diarrhea one dose of imodium given overnight. by night resident Hypotensive, resolving, stable Leukocytosis current cultures negative (blood, stool and wound) 10/14 urine culture: yeast f/u stool culture from rectoseal from 10/23 10/26 WBC 25.5 10/14 blood culture is positive for yeast flagyl 500mg GT Q8H Saccharomyces boulardi (florastor) 250mg POBID Abnormal Stress test, history of AICD, hx CAD ASA 81mg POQD Rosuvastatin [id number] POQHS Atrial Flutter, resolved Cardiology Consult (Dr. Cortés) Aspirin 81mg Po daily c/w Eliquis 2.5mg PO bid Eliquis held today d/t Hgb 6.6 10/24 low hemoglobin Epoeitin asim 85060 u IV M, W, F Eliquis held today d/t Hgb 6.6 10/24 2uPRBC adminstered after dialysis today 10/24 Hgb 11.2 after 2uPRBC CXR does not show increased pleural effusion in comparison to predialysis Hypocalcemia Calcitriol 0.25 mcg PEG daily UTI, yeast positive 10/14 urine positive for yeast diflucan 100mg/50cc NS @ 55cc/hr QD Unstageable Sacral Ulcer, Left Ear Auriclular ulcer, Right Heal Ulcer Cefepime 1 gm D5W 50cc/hr QD Santyl HTN, medications held until blood pressure is higher Midodrine (proamatine) metoprolol 25mg PEG BID BS DM Novolog- Insulin aspar sc Q6 Levemir 8 units SC [facility] ISS glucose accuchecks Benadryl 25mg IVP once 10/24 zofran 4mg IVP Q8H PRN Prophylaxis Pepcid 20mg POQD Diet: tube feeds: Vital 1.2 initial rate 20cc/hr with goal rate 70cc/hr Patient is at goal rate Social Work Patient's new insurance does not accept LTAC. new insurance starts October 28 Patient to possible go to [facility] face worker to provide letter to have daughter in [facility] get a visa to come to the [place] to see her father. comfort measures in place. POLST in chart, signed DNR as of 1899 on 10/25/1710/25 Patient was made DNR/DNI by of Patient Currently waiting for [facility] to accept the patient when new insurance starts 10/28/1710/26 right midline removed tip of midline sent for culture 10/26 new midline placed on left arm 10/[address] Cullen Sanchez DO PGY1
--- NOTE | 2017-10-26 11:32 | CP.PCM.PN ---
Subjective - Date & Time of Evaluation Date of Evaluation: 10/26/17 Time of Evaluation: : - Subjective Subjective: For sacral debridement today Has had diarrhea for DNR/DNI status is scheduled for dialysis today- family can decide if they want further treatments Objective - Vital Signs/Intake and Output Vital Signs (last 24 hours): Temp Pulse Resp BP Pulse Ox 98.5 F 126 H 32 H 99/35 L 95 10/26/17 08:00 10/26/17 09:11 10/26/17 09:11 10/26/17 09:11 10/26/17 09:11 Intake and Output: 10/26/17 10/26/17 06:59 18:59 Intake Total 450 Output Total 200 Balance 250 - Medications Medications: Current Medications Ascorbic Acid (Vitamin C 500 Mg Tab) 500 mg PEG DAILY [facility] Last Admin: 10/25/17 10:07 Dose: 500 mg Aspirin (Aspirin Chewable) 81 mg PO DAILY [facility] Last Admin: 10/25/17 10:00 Dose: 81 mg Calcitriol (Rocaltrol) 0.25 mcg PEG DAILY [facility] Last Admin: 10/25/17 10:07 Dose: 0.25 mcg Collagenase (Santyl) 1 gm TOP DAILY [facility] Last Admin: 10/25/17 10:28 Dose: 1 applic Epoetin [place] (Procrit) 10,000 unit IV MWF [facility] Last Admin: 10/24/17 18:01 Dose: 10,000 unit Fluconazole (Diflucan Iv 100 Mg/50 Ml Ns) 50 mls @ 100 mls/hr IVPB Q24H [facility] Last Admin: 10/25/17 19:33 Dose: 100 mls/hr Insulin Aspart (Novolog) 0 unit SC Q6 [facility] PRN Reason: Protocol Last Admin: 10/26/17 06:24 Dose: 3 unit Insulin Detemir (Levemir) 17 unit SC Q12 [facility] Last Admin: 10/25/17 21:53 Dose: 17 unit Ipratropium [place] (Atrovent) 0.5 mg IH RQ6 [facility] Last Admin: 10/26/17 07:15 Dose: 0.5 mg Loperamide HCl (Imodium) 1 mg PO Q4H PRN PRN Reason: Diarrhea Last Admin: 10/26/17 09:00 Dose: 1 mg Metoprolol Tartrate (Lopressor) 25 mg PEG BIDBS [facility] Last Admin: 10/25/17 09:58 Dose: Not Given Metronidazole (Flagyl) 500 mg GT Q8 [facility] Last Admin: 10/26/17 05:01 Dose: Not Given Midodrine (Proamatine) 10 mg PO TID [facility] Last Admin: 10/26/17 09:57 Dose: 10 mg Multivitamins/Vitamin C (Multi-Delyn Liquid) 5 ml PEG DAILY [facility] Last Admin: 10/25/17 10:07 Dose: 5 ml Ondansetron HCl (Zofran Inj) 4 mg IVP Q8H PRN PRN Reason: Nausea/Vomiting Pantoprazole Sodium (Protonix Ec Tab) 40 mg PO DAILY [facility] Last Admin: 10/25/17 18:00 Dose: 40 mg Rosuvastatin Calcium (Crestor) 10 mg PO HS [facility] Last Admin: 10/25/17 21:52 Dose: 10 mg Saccharomyces Boulardii (Florastor) 250 mg PO BID [facility] Last Admin: 10/25/17 18:01 Dose: 250 mg - Labs Labs: 10/26/17 06:29 10/26/17 06:29 PT 13.4 SECONDS (9.7-12.2) H 10/14/17 16:30 INR 1.2 10/14/17 16:30 APTT 28 SECONDS (21-34) 10/14/17 16:30 - Constitutional Appears: In Acute Distress, Chronically Ill - Head Exam Head Exam: ATRAUMATIC, NORMAL INSPECTION - Eye Exam Eye Exam: Conjunctival injection, EOMI - Neck Exam Neck Exam: Normal Inspection. absent: Tenderness - Respiratory Exam Respiratory Exam: Rhonchi, Respiratory Distress - Cardiovascular Exam Cardiovascular Exam: Tachycardia, Irregular Rhythm - GI/Abdominal Exam GI & Abdominal Exam: Soft. absent: Tenderness - Extremities Exam Extremities Exam: Normal Inspection. absent: Tenderness - Neurological Exam Neurological Exam: Altered, Motor Sensory Deficit - Skin Skin Exam: Dry, Warm Assessment and Plan (1) Acute on chronic renal failure Status: Resolved (2) CAD (coronary artery disease) Status: Chronic (3) CHF exacerbation Status: Chronic (4) Type 2 diabetes mellitus with diabetic nephropathy Status: Acute (5) Cardiorenal disease Status: Acute (6) ESRD (end stage renal disease) Status: Acute (7) Sacral decubitus ulcer Status: Acute - Assessment and Plan (Free Text) Plan: debridement today dialysis later if possible if family wishes
--- NOTE | 2017-10-26 12:07 | CP.PCM.PN ---
Subjective - Date & Time of Evaluation Date of Evaluation: 10/26/17 Time of Evaluation: 12:06 - Subjective Subjective: detailed discussion with family no additional interventions desired they declined debridement scheduled for today translation system used Objective - Vital Signs/Intake and Output Vital Signs (last 24 hours): Temp Pulse Resp BP Pulse Ox 98.5 F 126 H 32 H 99/35 L 95 10/26/17 08:00 10/26/17 09:11 10/26/17 09:11 10/26/17 09:11 10/26/17 09:11 Intake and Output: 10/26/17 10/26/17 06:59 18:59 Intake Total 450 Output Total 200 Balance 250 - Medications Medications: Current Medications Ascorbic Acid (Vitamin C 500 Mg Tab) 500 mg PEG DAILY [facility] Last Admin: 10/25/17 10:07 Dose: 500 mg Aspirin (Aspirin Chewable) 81 mg PO DAILY [facility] Last Admin: 10/25/17 10:00 Dose: 81 mg Calcitriol (Rocaltrol) 0.25 mcg PEG DAILY [facility] Last Admin: 10/25/17 10:07 Dose: 0.25 mcg Collagenase (Santyl) 1 gm TOP DAILY [facility] Last Admin: 10/25/17 10:28 Dose: 1 applic Epoetin Chencho (Procrit) 10,000 unit IV MWF [facility] Last Admin: 10/24/17 18:01 Dose: 10,000 unit Fluconazole (Diflucan Iv 100 Mg/50 Ml Ns) 50 mls @ 100 mls/hr IVPB Q24H [facility] Last Admin: 10/25/17 19:33 Dose: 100 mls/hr Insulin Aspart (Novolog) 0 unit SC Q6 [facility] FERNANDO PRN Reason: Protocol Last Admin: 10/26/17 06:24 Dose: 3 unit Insulin Detemir (Levemir) 17 unit SC Q12 [facility] Last Admin: 10/25/17 21:53 Dose: 17 unit Ipratropium [place] (Atrovent) 0.5 mg IH RQ6 [facility] Last Admin: 10/26/17 07:15 Dose: 0.5 mg Loperamide HCl (Imodium) 1 mg PO Q4H PRN PRN Reason: Diarrhea Last Admin: 10/26/17 09:00 Dose: 1 mg Metoprolol Tartrate (Lopressor) 25 mg PEG BIDBS [facility] Last Admin: 10/25/17 09:58 Dose: Not Given Metronidazole (Flagyl) 500 mg GT Q8 [facility] Last Admin: 10/26/17 05:01 Dose: Not Given Midodrine (Proamatine) 10 mg PO TID [facility] Last Admin: 10/26/17 09:57 Dose: 10 mg Multivitamins/Vitamin C (Multi-Delyn Liquid) 5 ml PEG DAILY [facility] Last Admin: 10/25/17 10:07 Dose: 5 ml Ondansetron HCl (Zofran Inj) 4 mg IVP Q8H PRN PRN Reason: Nausea/Vomiting Pantoprazole Sodium (Protonix Ec Tab) 40 mg PO DAILY [facility] Last Admin: 10/25/17 18:00 Dose: 40 mg Rosuvastatin Calcium (Crestor) 10 mg PO HS [facility] Last Admin: 10/25/17 21:52 Dose: 10 mg Saccharomyces Boulardii (Florastor) 250 mg PO BID [facility] Last Admin: 10/25/17 18:01 Dose: 250 mg - Labs Labs: 10/26/17 06:29 10/26/17 06:29 PT 13.4 SECONDS (9.7-12.2) H 10/14/17 16:30 INR 1.2 10/14/17 16:30 APTT 28 SECONDS (21-34) 10/14/17 16:30
--- NOTE | 2017-10-26 12:56 | CP.PCM.PN ---
Subjective - Date & Time of Evaluation Date of Evaluation: 10/26/17 Time of Evaluation: 11:00 - Subjective Subjective: Unresponsive. Objective - Vital Signs/Intake and Output Vital Signs (last 24 hours): Temp Pulse Resp BP Pulse Ox 98.5 F 126 H 32 H 99/35 L 95 10/26/17 08:00 10/26/17 09:11 10/26/17 09:11 10/26/17 09:11 10/26/17 09:11 Intake and Output: 10/26/17 10/26/17 06:59 18:59 Intake Total 450 Output Total 200 Balance 250 - Medications Medications: Current Medications Ascorbic Acid (Vitamin C 500 Mg Tab) 500 mg PEG DAILY [facility] Last Admin: 10/25/17 10:07 Dose: 500 mg Aspirin (Aspirin Chewable) 81 mg PO DAILY [facility] Last Admin: 10/25/17 10:00 Dose: 81 mg Calcitriol (Rocaltrol) 0.25 mcg PEG DAILY [facility] Last Admin: 10/25/17 10:07 Dose: 0.25 mcg Collagenase (Santyl) 1 gm TOP DAILY [facility] Last Admin: 10/25/17 10:28 Dose: 1 applic Epoetin Chencho (Procrit) 10,000 unit IV MWF [facility] Last Admin: 10/24/17 18:01 Dose: 10,000 unit Fluconazole (Diflucan Iv 100 Mg/50 Ml Ns) 50 mls @ 100 mls/hr IVPB Q24H [facility] Last Admin: 10/25/17 19:33 Dose: 100 mls/hr Insulin Aspart (Novolog) 0 unit SC Q6 [facility] FERNANDO PRN Reason: Protocol Last Admin: 10/26/17 06:24 Dose: 3 unit Insulin Detemir (Levemir) 17 unit SC Q12 [facility] Last Admin: 10/25/17 21:53 Dose: 17 unit Ipratropium [place] (Atrovent) 0.5 mg IH RQ6 [facility] Last Admin: 10/26/17 07:15 Dose: 0.5 mg Loperamide HCl (Imodium) 1 mg PO Q4H PRN PRN Reason: Diarrhea Last Admin: 10/26/17 09:00 Dose: 1 mg Metoprolol Tartrate (Lopressor) 25 mg PEG BIDBS [facility] Last Admin: 10/25/17 09:58 Dose: Not Given Metronidazole (Flagyl) 500 mg GT Q8 [facility] Last Admin: 10/26/17 05:01 Dose: Not Given Midodrine (Proamatine) 10 mg PO TID [facility] Last Admin: 10/26/17 09:57 Dose: 10 mg Multivitamins/Vitamin C (Multi-Delyn Liquid) 5 ml PEG DAILY [facility] Last Admin: 10/25/17 10:07 Dose: 5 ml Ondansetron HCl (Zofran Inj) 4 mg IVP Q8H PRN PRN Reason: Nausea/Vomiting Pantoprazole Sodium (Protonix Ec Tab) 40 mg PO DAILY [facility] Last Admin: 10/25/17 18:00 Dose: 40 mg Rosuvastatin Calcium (Crestor) 10 mg PO HS [facility] Last Admin: 10/25/17 21:52 Dose: 10 mg Saccharomyces Boulardii (Florastor) 250 mg PO BID [facility] Last Admin: 10/25/17 18:01 Dose: 250 mg - Labs Labs: 10/26/17 06:29 10/26/17 06:29 PT 13.4 SECONDS (9.7-12.2) H 10/14/17 16:30 INR 1.2 10/14/17 16:30 APTT 28 SECONDS (21-34) 10/14/17 16:30 - Constitutional Appears: Chronically Ill - Head Exam Head Exam: ATRAUMATIC, NORMAL INSPECTION, NORMOCEPHALIC - Eye Exam Eye Exam: EOMI, Normal appearance, PERRL Pupil Exam: NORMAL ACCOMODATION, PERRL - ENT Exam Additional comments: Trach in place - Neck Exam Neck Exam: Normal Inspection - Respiratory Exam Additional comments: On MV support - Cardiovascular Exam Cardiovascular Exam: Tachycardia, REGULAR RHYTHM - GI/Abdominal Exam Additional comments: PEG - Rectal Exam Rectal Exam: Deferred - Exam Exam: NORMAL INSPECTION - Extremities Exam Extremities Exam: Pedal Edema - Back Exam Additional comments: large pressure sore - Neurological Exam Neurological Exam: Alert, Altered Neuro motor strength exam: Left Upper Extremity: 2/1, Right Upper Extremity: 2/1 , Left Lower Extremity: 2/1, Right Lower Extremity: 2/1 - Psychiatric Exam Psychiatric exam: Flat Affect - Skin Skin Exam: Normal Color Assessment and Plan - Assessment and Plan (Free Text) Assessment: Patient more alert today, keeps his eyes open, but does not fallow and is aphasic. The sacral wound debridement was planned for this am, but was not able to make decision weather or not to precede with it. per nursing, also had questions regarding the POLST she signed last night. Using [employer] fullerette I reviewed yesterday discussion and goals of plan we made to precede with comfort care only. She stated concerns regarding the sacral wound and how it was to affect her 's condition . With help from Doctor Andrei who came in, it was explained that debridement would most likely help cure the infection but will not help patient fully recover. voiced concerns that further surgical interventions would make her suffer more, and choose NOT to have him debride wound. She repeatedly said that she should "Let God decide". I reviewed the POLST signed last night and questioned further HD and IV antibiotics use if it should be needed. The wanted all interventions to be continued as of now. I supported her and assisted with completing the new POLST calling for Full treatment and DNR. I had the fullerette help me guiding the trough the steps of completing POLST. This was shared with Doctor Cullen Barth and ICU staff. Impression * Chronically ill man with multi organ failure complicated with infected sacral wound sore * at bed side admitts to having difficult time deciding on goals of care; her main concern is his comfort * would like to continue current treatment including HD and needed IV antibiotics, but to sustain from CPR in case his heart stops * relays heavily on God for support Suggestions * DNR * continue HD * Routinely sacral wound care * Promote skin integrity * Promote comfort
[2017-10-26] MEDS: Saccharomyces Boulardi 250 mg Cap PO SCH ×2 (13:23→17:53)
[2017-10-26] MEDS: Pantoprazole 40 mg EC Tab PO SCH (13:23)
[2017-10-26] MEDS: Multiple Vitamins Oral Solution PEG SCH (13:24)
[2017-10-26] MEDS: Epoetin Alfa 10,000 unit/ml Dialysis IV SCH (17:13)
[2017-10-26] MEDS: Fluconazole IV 100mg/50 ml NS 50 ML IVPB SCH (19:00)
[2017-10-27] MEDS: (Novolog) Insulin Aspart, Recombinant 100 u/ml 10 ml vial SC SCH ×6 (00:23→23:55)
[2017-10-27] MEDS: Ipratropium 0.02% Inhal Soln (0.5 mg/2.5 ml) UD IH SCH ×4 (01:50→19:49)
[2017-10-27 06:42] LABS: BASO # 0.1 K/uL (0.0-0.2); EOS # 0.1 K/uL (0.0-0.7); MEAN PLATELET VOLUME 8.4 fL (7.2-11.7); MONO % 5.6 % (0.0-10.0)
[2017-10-27 06:44] LABS: BASO % 0.3 % (0.0-2.0); EOS % 0.5 % (0.0-4.0); HEMATOCRIT 28.6 % (35.0-51.0); LYMPH % 11.1 % (20.0-40.0); MEAN CELL VOLUME 91.4 fL (80.0-94.0); MEAN CORPUSCULAR HEMOGLOBIN 29.3 pg (27.0-31.0); MEAN CORPUSCULAR HGB CONC 32.1 g/dL (33.0-37.0); NRBC % 0.2 % (0.0-2.0); RED CELL DISTRIBUTION WIDTH 22.2 % (11.5-14.5); WHITE BLOOD COUNT 17.7 K/uL (4.8-10.8)
[2017-10-27 07:04] LABS: ALB/GLOB RATIO 0.7 (1.0-2.1); BILIRUBIN,TOTAL 0.5 mg/dL (0.2-1.3); CALCIUM 7.4 mg/dl (8.6-10.4); MAGNESIUM 1.9 mg/dL (1.6-2.3); POTASSIUM 3.9 mmol/L (3.6-5.2); TOTAL PROTEIN 6.5 g/dL (6.3-8.3)
[2017-10-27 07:05] LABS: PHOSPHOROUS 3.8 mg/dL (2.5-4.5)
--- NOTE | 2017-10-27 09:15 | CP.PCM.PN ---
Subjective - Date & Time of Evaluation Date of Evaluation: 10/27/17 Time of Evaluation: 09:13 - Subjective Subjective: Family refused debridement s/p dialysis 10/26- UF 500ml same lethargy on trach collar; not verbalizing same tachycardia Objective - Vital Signs/Intake and Output Vital Signs (last 24 hours): Temp Pulse Resp BP Pulse Ox 98.8 F 130 H 29 H 116/50 L 100 10/27/17 04:00 10/27/17 08:30 10/27/17 08:30 10/27/17 08:30 10/27/17 08:30 - Medications Medications: Current Medications Ascorbic Acid (Vitamin C 500 Mg Tab) 500 mg PEG DAILY [facility] Last Admin: 10/26/17 13:23 Dose: 500 mg Aspirin (Aspirin Chewable) 81 mg PO DAILY [facility] Last Admin: 10/26/17 13:27 Dose: 81 mg Calcitriol (Rocaltrol) 0.25 mcg PEG DAILY [facility] Last Admin: 10/26/17 13:23 Dose: 0.25 mcg Epoetin Chencho (Procrit) 10,000 unit IV MWF [facility] Last Admin: 10/26/17 17:13 Dose: 10,000 unit Fluconazole (Diflucan Iv 100 Mg/50 Ml Ns) 50 mls @ 100 mls/hr IVPB Q24H [facility] Last Admin: 10/26/17 19:00 Dose: 100 mls/hr Insulin Aspart (Novolog) 0 unit SC Q6 [facility] FERNANDO PRN Reason: Protocol Last Admin: 10/27/17 06:33 Dose: 5 unit Insulin Detemir (Levemir) 17 unit SC Q12 [facility] Last Admin: 10/26/17 22:21 Dose: 17 unit Ipratropium [place] (Atrovent) 0.5 mg IH RQ6 [facility] Last Admin: 10/27/17 07:48 Dose: 0.5 mg Loperamide HCl (Imodium) 1 mg PO Q4H PRN PRN Reason: Diarrhea Last Admin: 10/26/17 09:00 Dose: 1 mg Metoprolol Tartrate (Lopressor) 25 mg PEG BIDBS [facility] Last Admin: 10/25/17 09:58 Dose: Not Given Metronidazole (Flagyl) 500 mg GT Q8 [facility] Last Admin: 10/27/17 06:09 Dose: 500 mg Midodrine (Proamatine) 10 mg PO TID [facility] Last Admin: 10/26/17 17:53 Dose: 10 mg Multivitamins/Vitamin C (Multi-Delyn Liquid) 5 ml PEG DAILY [facility] Last Admin: 10/26/17 13:24 Dose: 5 ml Ondansetron HCl (Zofran Inj) 4 mg IVP Q8H PRN PRN Reason: Nausea/Vomiting Pantoprazole Sodium (Protonix Ec Tab) 40 mg PO DAILY [facility] Last Admin: 10/26/17 13:23 Dose: 40 mg Rosuvastatin Calcium (Crestor) 10 mg PO HS [facility] Last Admin: 10/26/17 21:15 Dose: 10 mg Saccharomyces Boulardii (Florastor) 250 mg PO BID [facility] Last Admin: 10/26/17 17:53 Dose: 250 mg - Labs Labs: 10/27/17 06:38 10/27/17 06:38 PT 13.4 SECONDS (9.7-12.2) H 10/14/17 16:30 INR 1.2 10/14/17 16:30 APTT 28 SECONDS (21-34) 10/14/17 16:30 - Constitutional Appears: Confused, Chronically Ill - Head Exam Head Exam: ATRAUMATIC, NORMAL INSPECTION - Eye Exam Eye Exam: EOMI, Normal appearance - Neck Exam Neck Exam: Normal Inspection. absent: Tenderness - Respiratory Exam Respiratory Exam: Rhonchi, Respiratory Distress - Cardiovascular Exam Cardiovascular Exam: Tachycardia, Irregular Rhythm - GI/Abdominal Exam GI & Abdominal Exam: Soft. absent: Tenderness - Extremities Exam Extremities Exam: Normal Inspection. absent: Pedal Edema - Neurological Exam Neurological Exam: Altered, Motor Sensory Deficit - Skin Skin Exam: Dry, Warm Assessment and Plan (1) Acute on chronic renal failure Status: Resolved (2) CAD (coronary artery disease) Status: Chronic (3) CHF exacerbation Status: Chronic (4) Type 2 diabetes mellitus with diabetic nephropathy Status: Acute (5) Cardiorenal disease Status: Acute (6) ESRD (end stage renal disease) Status: Acute (7) Sacral decubitus ulcer Status: Acute - Assessment and Plan (Free Text) Plan: dialysis MWF as per family wishes
--- NOTE | 2017-10-27 10:27 | CP.PCM.PN ---
Subjective - Date & Time of Evaluation Date of Evaluation: 10/27/17 Time of Evaluation: 11:20 - Subjective Subjective: Progress note No acute changes. Patient is stable. NO ROS could be obtained due to current clinical state. Patient has no secretions noted at bedside. no acute events per nursing Objective - Vital Signs/Intake and Output Vital Signs (last 24 hours): Temp Pulse Resp BP Pulse Ox 98.8 F 130 H 29 H 116/50 L 100 10/27/17 04:00 10/27/17 08:30 10/27/17 08:30 10/27/17 08:30 10/27/17 08:30 - Medications Medications: Current Medications Ascorbic Acid (Vitamin C 500 Mg Tab) 500 mg PEG DAILY [facility] Last Admin: 10/26/17 13:23 Dose: 500 mg Aspirin (Aspirin Chewable) 81 mg PO DAILY [facility] Last Admin: 10/26/17 13:27 Dose: 81 mg Calcitriol (Rocaltrol) 0.25 mcg PEG DAILY [facility] Last Admin: 10/26/17 13:23 Dose: 0.25 mcg Epoetin [place]im (Procrit) 10,000 unit IV MWF [facility] Last Admin: 10/26/17 17:13 Dose: 10,000 unit Fluconazole (Diflucan Iv 100 Mg/50 Ml Ns) 50 mls @ 100 mls/hr IVPB Q24H [facility] Last Admin: 10/26/17 19:00 Dose: 100 mls/hr Insulin Aspart (Novolog) 0 unit SC Q6 [facility]NAND[facility] PRN Reason: Protocol Last Admin: 10/27/17 06:33 Dose: 5 unit Insulin Detemir (Levemir) 17 unit SC Q12 [facility] Last Admin: 10/26/17 22:21 Dose: 17 unit Ipratropium [place] (Atrovent) 0.5 mg IH RQ6 [facility] Last Admin: 10/27/17 07:48 Dose: 0.5 mg Loperamide HCl (Imodium) 1 mg PO Q4H PRN PRN Reason: Diarrhea Last Admin: 10/26/17 09:00 Dose: 1 mg Metoprolol Tartrate (Lopressor) 25 mg PEG BIDBS [facility] Last Admin: 10/25/17 09:58 Dose: Not Given Metronidazole (Flagyl) 500 mg GT Q8 [facility] Last Admin: 10/27/17 06:09 Dose: 500 mg Midodrine (Proamatine) 10 mg PO TID [facility] Last Admin: 10/26/17 17:53 Dose: 10 mg Multivitamins/Vitamin C (Multi-Delyn Liquid) 5 ml PEG DAILY [facility] Last Admin: 10/26/17 13:24 Dose: 5 ml Ondansetron HCl (Zofran Inj) 4 mg IVP Q8H PRN PRN Reason: Nausea/Vomiting Pantoprazole Sodium (Protonix Ec Tab) 40 mg PO DAILY [facility] Last Admin: 10/26/17 13:23 Dose: 40 mg Rosuvastatin Calcium (Crestor) 10 mg PO HS [facility] Last Admin: 10/26/17 21:15 Dose: 10 mg Saccharomyces Boulardii (Florastor) 250 mg PO BID [facility] Last Admin: 10/26/17 17:53 Dose: 250 mg - Labs Labs: 10/27/17 06:38 10/27/17 06:38 PT 13.4 SECONDS (9.7-12.2) H 10/14/17 16:30 INR 1.2 10/14/17 16:30 APTT 28 SECONDS (21-34) 10/14/17 16:30 - Constitutional Appears: Non-toxic - Head Exam Head Exam: NORMAL INSPECTION - Eye Exam Eye Exam: EOMI, Normal appearance - ENT Exam ENT Exam: Mucous Membranes Moist - Respiratory Exam Respiratory Exam: Decreased Breath Sounds, NORMAL BREATHING PATTERN - Cardiovascular Exam Cardiovascular Exam: REGULAR RHYTHM, +S1, +S2 - GI/Abdominal Exam GI & Abdominal Exam: Distended, Soft. absent: Tenderness Additional comments: PEG in place - Extremities Exam Extremities Exam: Full ROM. absent: Pedal Edema - Back Exam Back Exam: Full ROM - Neurological Exam Neurological Exam: Alert, Awake - Psychiatric Exam Psychiatric exam: Normal Affect, Normal Mood - Skin Skin Exam: Dry, Intact Assessment and Plan - Assessment and Plan (Free Text) Assessment: 77M with ARDS s/p cardiac arrest, with pulmonary edema and NSTEMI ipratropium 0.02% (atrovent) 0.5mg IH RQ6H 10/24 CXR: questionable interval atelectasis or infiltrate in medial right base 10/23 mid bibasilar atelectasis. questionable small left-sided effusion CXR left lobe atelectasis v pna f/u with DR. Lawrence for CXR results. do you think we should start cefepime and aztreonam because of CXR fever, wbc, blood 10/26 right midline removed, tip of midline sent for culture 10/26, new midline placed on left arm 10/26 10/[address] Lawrence: fungal infection in blood, lines should be changed. 10/[address] Lawrence: fungal infection in blood, lines should be changed. reach out to Mrs. Wolf, if family does want patient on dialysis: dialysis needs to be changed If patient's family wants patient on dialysis, reached out to surgery team. f/u echo to rule out vegetations mycamine 100mg POQD merrem 500 POQD Constipation, resolved Dulcolax 10mg CO Once PRN 10/21, patient had a dark brown BM yesterday, none today per nursing staff Discussed with nurse, sacral wound dressing changed this morning. Patient is having diarrhea, in the Flexseal. Cultures were taken, currently negative GI Dr. Wills consulted: does not feel that it would be in the best interest of the patient at this time to do any invasive procedure or examination. Diarrhea one dose of imodium given overnight. by night resident Hypotensive, resolving, stable Leukocytosis current cultures negative (blood, stool and wound) 10/14 urine culture: yeast f/u stool culture from rectoseal from 10/23 10/26 WBC 25.5 10/27 WBC 17 10/14 blood culture is positive for yeast flagyl 500mg GT Q8H Saccharomyces boulardi (florastor) 250mg POBID Abnormal Stress test, history of AICD, hx CAD ASA 81mg POQD Rosuvastatin [id number] POQHS Atrial Flutter, resolved Cardiology Consult (Dr. Cortés) Aspirin 81mg Po daily c/w Eliquis 2.5mg PO bid Eliquis held today d/t Hgb 6.6 10/24 low hemoglobin Epoeitin asim [id number] u IV M, W, F Eliquis held today d/t Hgb 6.6 10/24 2uPRBC adminstered after dialysis today 10/24 Hgb 11.2 after 2uPRBC CXR does not show increased pleural effusion in comparison to predialysis Hypocalcemia Calcitriol 0.25 mcg PEG daily UTI, yeast positive 10/14 urine positive for yeast diflucan 100mg/50cc NS @ 55cc/hr QD Unstageable Sacral Ulcer, Left Ear Auriclular ulcer, Right Heal Ulcer Cefepime 1 gm D5W 50cc/hr QD Santyl HTN, medications held until blood pressure is higher Midodrine (proamatine) metoprolol 25mg PEG BID [facility] Novolog 32 units QAM QHS Levemir 13 units SC [facility] ISS glucose accuchecks Benadryl 25mg IVP once 10/24 Zofran 4mg IVP Q8H PRN Prophylaxis Pepcid 20mg POQD Diet: tube feeds: Vital 1.2 initial rate 20cc/hr with goal rate 70cc/hr Patient is at goal rate Social Work Patient's new insurance does not accept LTAC. new insurance starts October 28 Patient to possible go to [facility] panel lay up worker to provide letter to have daughter in [facility] get a visa to come to the [place] to see her father. comfort measures in place. POLST in chart, signed DNR as of 190 on 10/25/1710/25 Patient was made DNR/DNI by of Patient Currently waiting for [facility] to accept the patient when new insurance starts 10/28/17 Dispo: reach out to Mrs. Wolf, if family does want patient on dialysis: dialysis needs to be changed If patient's family wants patient on dialysis, reached out to surgery team. f/u echo to rule out vegetations Patient discussed with DR. Cullen Sanchez DO PGY1
[2017-10-27] MEDS: Multiple Vitamins Oral Solution PEG SCH (12:13)
[2017-10-27] MEDS: Insulin Detemir 100 units/ml Vial (Levemir) SC SCH ×2 (12:14→22:26)
[2017-10-27] MEDS: Saccharomyces Boulardi 250 mg Cap PO SCH ×2 (12:14→17:38)
[2017-10-27] MEDS: Pantoprazole 40 mg EC Tab PO SCH (12:15)
[2017-10-27] MEDS: Meropenem 500 MG in Sodium Chloride 0.9% 100 ML IVPB SCH ×2 (14:10→21:12)
--- NOTE | 2017-10-27 15:45 | CARD ---
APPROVED REPORT EKG Measurement Heart [id number] <Conclusion> Sinus tachycardia Left anterior fascicular block ST & T wave abnormality, consider lateral ischemia Abnormal ECG
--- NOTE | 2017-10-27 16:31 | CP.PCM.PN ---
<Carmencita Alvarez - Last Filed: 10/27/17 16:37> Subjective - Date & Time of Evaluation Date of Evaluation: 10/27/17 Time of Evaluation: 16:30 - Subjective Subjective: Carmencita Alvarez, PGY1, GI Progress Note for Dr Wills: Pt seen and examined at bedside. No acute events overnight. Pt made DNR yesterday per and palliative care discussion. Only wants comfort care, current medications and hemodialysis. Does not want any invasive procedures. Pt tolerating tube feeds well with no residuals. Pt had 50 cc of dark brown stool in the flexiseal, much decreased from last night (no bright red blood). Pt responds to tactile/verbal stimuli, follows simple commands. 12 point ROS unobtainable bc pt's AMS/trach. Objective - Vital Signs/Intake and Output Vital Signs (last 24 hours): Temp Pulse Resp BP Pulse Ox 98.8 F 130 H 29 H 116/50 L 100 10/27/17 04:00 10/27/17 08:30 10/27/17 08:30 10/27/17 08:30 10/27/17 08:30 - Medications Medications: Current Medications Ascorbic Acid (Vitamin C 500 Mg Tab) 500 mg PEG DAILY [facility] Last Admin: 10/27/17 12:23 Dose: 500 mg Aspirin (Aspirin Chewable) 81 mg PO DAILY [facility] Last Admin: 10/27/17 12:13 Dose: 81 mg Calcitriol (Rocaltrol) 0.25 mcg PEG DAILY [facility] Last Admin: 10/27/17 12:15 Dose: 0.25 mcg Epoetin [place] (Procrit) 10,000 unit IV MWF [facility] Last Admin: 10/26/17 17:13 Dose: 10,000 unit Fluconazole (Diflucan Iv 100 Mg/50 Ml Ns) 50 mls @ 100 mls/hr IVPB Q24H [facility] Last Admin: 10/26/17 19:00 Dose: 100 mls/hr Meropenem 500 mg/ Sodium (Chloride) 100 mls @ 100 mls/hr IVPB Q8 [facility] Last Admin: 10/27/17 14:10 Dose: 100 mls/hr Insulin Aspart (Novolog) 0 unit SC Q6 [facility] PRN Reason: Protocol Last Admin: 10/27/17 12:54 Dose: 6 unit Insulin Detemir (Levemir) 25 unit SC Q12 [facility] Ipratropium [place] (Atrovent) 0.5 mg IH RQ6 [facility] Last Admin: 10/27/17 13:53 Dose: 0.5 mg Loperamide HCl (Imodium) 1 mg PO Q4H PRN PRN Reason: Diarrhea Last Admin: 10/26/17 09:00 Dose: 1 mg Metoprolol Tartrate (Lopressor) 25 mg PEG BIDBS [facility] Last Admin: 10/25/17 09:58 Dose: Not Given Metronidazole (Flagyl) 500 mg GT Q8 [facility] Last Admin: 10/27/17 14:11 Dose: 500 mg Midodrine (Proamatine) 10 mg PO TID [facility] Last Admin: 10/27/17 14:11 Dose: 10 mg Multivitamins/Vitamin C (Multi-Delyn Liquid) 5 ml PEG DAILY [facility] Last Admin: 10/27/17 12:13 Dose: 5 ml Ondansetron HCl (Zofran Inj) 4 mg IVP Q8H PRN PRN Reason: Nausea/Vomiting Pantoprazole Sodium (Protonix Ec Tab) 40 mg PO DAILY [facility] Last Admin: 10/27/17 12:15 Dose: Not Given Rosuvastatin Calcium (Crestor) 10 mg PO HS [facility] Last Admin: 10/26/17 21:15 Dose: 10 mg Saccharomyces Boulardii (Florastor) 250 mg PO BID [facility] Last Admin: 10/27/17 12:14 Dose: 250 mg Vitamin A (Vitamin A & D Oint Ud Foilpak) 0.5 ea TOP Q1H PRN PRN Reason: Dry skin - Labs Labs: 10/27/17 06:38 10/27/17 06:38 PT 13.4 SECONDS (9.7-12.2) H 10/14/17 16:30 INR 1.2 10/14/17 16:30 APTT 28 SECONDS (21-34) 10/14/17 16:30 - Constitutional Appears: Non-toxic, Older Than Stated Age, Chronically Ill - Head Exam Head Exam: ATRAUMATIC, NORMOCEPHALIC - Eye Exam Eye Exam: EOMI Pupil Exam: PERRL - ENT Exam ENT Exam: Mucous Membranes Moist - Respiratory Exam Respiratory Exam: Clear to Ausculation Bilateral. absent: Respiratory Distress - Cardiovascular Exam Cardiovascular Exam: Tachycardia, +S1, +S2. absent: Murmur - GI/Abdominal Exam GI & Abdominal Exam: Soft, Normal Bowel Sounds. absent: Distended, Rigid, Tenderness, Mass, Organomegaly, Rebound - Extremities Exam Extremities Exam: absent: Calf Tenderness, Pedal Edema - Neurological Exam Neurological Exam: Altered, Awake - Skin Skin Exam: Dry, Normal Color, Warm Assessment and Plan - Assessment and Plan (Free Text) Assessment: 77 years old male with hx of CAD s/p stents, CKD, pacemaker, prior DVT, atrial flutter, admitted for ARDS s/p cardiac arrest, s/p PEG and trach this admission , found to have dropping hemoglobin, diarrhea, and FOBT+: Plan: - 2/2 likely flexiseal tube insertion trauma vs colitis vs PUD vs AVM vs ESRD vs malignancy - Tolerating Vital 1.5 tube feeds at 60/hr. No resiudals. Abd soft, + BS. - Flexiseal output 50 ml/12hrs, dark brown liquidy stools. No blood. - Continue with IV Protonix daily - C/w IV abx as per primary team - Continue with Imodium prn. Bedside nurse advised to give it as needed. - Palliative team on board. Pt made DNR yesterday per and palliative care discussion. Only wants comfort care, current medications and hemodialysis. Does not want any invasive procedures. - Stool cultures and ova/parasites 10/20 neg. C diff negative as well. - H/H currently stable s/p 2 units prbcs transfusion 10/24, Hgb 9.2 today. - Thank you for your consult. Please reconsult us for any future concerns. Discussed with GI fellow and attending, Dr Wills. Carmencita Alvarez, PGY1 <Migel Wills Y - Last Filed: 10/27/17 17:56> Objective - Vital Signs/Intake and Output Vital Signs (last 24 hours): Temp Pulse Resp BP Pulse Ox 98.8 F 130 H 29 H 116/50 L 100 10/27/17 04:00 10/27/17 08:30 10/27/17 08:30 10/27/17 08:30 10/27/17 08:30 - Medications Medications: Current Medications Ascorbic Acid (Vitamin C 500 Mg Tab) 500 mg PEG DAILY [facility] Last Admin: 10/27/17 12:23 Dose: 500 mg Aspirin (Aspirin Chewable) 81 mg PO DAILY [facility] Last Admin: 10/27/17 12:13 Dose: 81 mg Calcitriol (Rocaltrol) 0.25 mcg PEG DAILY [facility] Last Admin: 10/27/17 12:15 Dose: 0.25 mcg Epoetin [place] (Procrit) 10,000 unit IV MWF [facility] Last Admin: 10/26/17 17:13 Dose: 10,000 unit Meropenem 500 mg/ Sodium (Chloride) 100 mls @ 100 mls/hr IVPB Q8 [facility] Last Admin: 10/27/17 14:10 Dose: 100 mls/hr Micafungin Sodium 100 mg/ (Sodium Chloride) 100 mls @ 100 mls/hr IV Q24H [facility] Last Admin: 10/27/17 17:38 Dose: 100 mls/hr Insulin Aspart (Novolog) 0 unit SC Q6 [facility] PRN Reason: Protocol Last Admin: 10/27/17 12:54 Dose: 6 unit Insulin Detemir (Levemir) 25 unit SC Q12 [facility] Ipratropium [place] (Atrovent) 0.5 mg IH RQ6 [facility] Last Admin: 10/27/17 13:53 Dose: 0.5 mg Loperamide HCl (Imodium) 1 mg PO Q4H PRN PRN Reason: Diarrhea Last Admin: 10/26/17 09:00 Dose: 1 mg Metoprolol Tartrate (Lopressor) 25 mg PEG BIDBS [facility] Last Admin: 10/25/17 09:58 Dose: Not Given Metronidazole (Flagyl) 500 mg GT Q8 [facility] Last Admin: 10/27/17 14:11 Dose: 500 mg Midodrine (Proamatine) 10 mg PO TID [facility] Last Admin: 10/27/17 17:38 Dose: 10 mg Multivitamins/Vitamin C (Multi-Delyn Liquid) 5 ml PEG DAILY [facility] Last Admin: 10/27/17 12:13 Dose: 5 ml Ondansetron HCl (Zofran Inj) 4 mg IVP Q8H PRN PRN Reason: Nausea/Vomiting Pantoprazole Sodium (Protonix Ec Tab) 40 mg PO DAILY [facility] Last Admin: 10/27/17 12:15 Dose: Not Given Rosuvastatin Calcium (Crestor) 10 mg PO HS [facility] Last Admin: 10/26/17 21:15 Dose: 10 mg Saccharomyces Boulardii (Florastor) 250 mg PO BID [facility] Last Admin: 10/27/17 17:38 Dose: 250 mg Vitamin A (Vitamin A & D Oint Ud Foilpak) 0.5 ea TOP Q1H PRN PRN Reason: Dry skin - Labs Labs: 10/27/17 06:38 10/27/17 06:38 PT 13.4 SECONDS (9.7-12.2) H 10/14/17 16:30 INR 1.2 10/14/17 16:30 APTT 28 SECONDS (21-34) 10/14/17 16:30 Attending/Attestation - Attestation I have personally seen and examined this patient.: Yes I have fully participated in the care of the patient.: Yes I have reviewed all pertinent clinical information, including history, physical exam and plan: Yes Notes (Text): 10/27/17 17:52 I have seen and examined patient with biomedical specialist and GI fellow. No acute events overnight. There is no reported abdominal pain, vomiting, or rectal bleeding. Tolerating tube feeding without any difficulty. Review of vitals from today shows tachycardia. CAD s/p stent Dementia CKD Atrial flutter on anticoagulation (held) Anemia History of cardiac arrest s/p PEG and tracheostomy - Continue with tube feeding as tolerated - H/H stable, continue to monitor - Appreciate palliative care evaluation, patient noted to be DNR. As per family wishes, no plan for any further invasive testing or interventions which is certainly reasonable given overall clinical scenario with chronic illness. Suggest ongoing conservative management and focus on overall patient comfort. - Will sign off case, please reconsult as necessary.
--- NOTE | 2017-10-27 17:02 | CP.PCM.PN ---
Subjective - Date & Time of Evaluation Date of Evaluation: 10/27/17 Time of Evaluation: 04:45 - Subjective Subjective: dictated Objective - Vital Signs/Intake and Output Vital Signs (last 24 hours): Temp Pulse Resp BP Pulse Ox 98.8 F 130 H 29 H 116/50 L 100 10/27/17 04:00 10/27/17 08:30 10/27/17 08:30 10/27/17 08:30 10/27/17 08:30 - Medications Medications: Current Medications Ascorbic Acid (Vitamin C 500 Mg Tab) 500 mg PEG DAILY [facility] Last Admin: 10/27/17 12:23 Dose: 500 mg Aspirin (Aspirin Chewable) 81 mg PO DAILY [facility] Last Admin: 10/27/17 12:13 Dose: 81 mg Calcitriol (Rocaltrol) 0.25 mcg PEG DAILY [facility] Last Admin: 10/27/17 12:15 Dose: 0.25 mcg Epoetin [place] (Procrit) 10,000 unit IV MWF [facility] Last Admin: 10/26/17 17:13 Dose: 10,000 unit Meropenem 500 mg/ Sodium (Chloride) 100 mls @ 100 mls/hr IVPB Q8 [facility] Last Admin: 10/27/17 14:10 Dose: 100 mls/hr Micafungin Sodium 100 mg/ (Sodium Chloride) 100 mls @ 100 mls/hr IV Q24H [facility] Insulin Aspart (Novolog) 0 unit SC Q6 [facility] PRN Reason: Protocol Last Admin: 10/27/17 12:54 Dose: 6 unit Insulin Detemir (Levemir) 25 unit SC Q12 [facility] Ipratropium [place] (Atrovent) 0.5 mg IH RQ6 [facility] Last Admin: 10/27/17 13:53 Dose: 0.5 mg Loperamide HCl (Imodium) 1 mg PO Q4H PRN PRN Reason: Diarrhea Last Admin: 10/26/17 09:00 Dose: 1 mg Metoprolol Tartrate (Lopressor) 25 mg PEG BIDBS [facility] Last Admin: 10/25/17 09:58 Dose: Not Given Metronidazole (Flagyl) 500 mg GT Q8 [facility] Last Admin: 10/27/17 14:11 Dose: 500 mg Midodrine (Proamatine) 10 mg PO TID [facility] Last Admin: 10/27/17 14:11 Dose: 10 mg Multivitamins/Vitamin C (Multi-Delyn Liquid) 5 ml PEG DAILY [facility] Last Admin: 10/27/17 12:13 Dose: 5 ml Ondansetron HCl (Zofran Inj) 4 mg IVP Q8H PRN PRN Reason: Nausea/Vomiting Pantoprazole Sodium (Protonix Ec Tab) 40 mg PO DAILY [facility] Last Admin: 10/27/17 12:15 Dose: Not Given Rosuvastatin Calcium (Crestor) 10 mg PO HS [facility] Last Admin: 10/26/17 21:15 Dose: 10 mg Saccharomyces Boulardii (Florastor) 250 mg PO BID [facility] Last Admin: 10/27/17 12:14 Dose: 250 mg Vitamin A (Vitamin A & D Oint Ud Foilpak) 0.5 ea TOP Q1H PRN PRN Reason: Dry skin - Labs Labs: 10/27/17 06:38 10/27/17 06:38 PT 13.4 SECONDS (9.7-12.2) H 10/14/17 16:30 INR 1.2 10/14/17 16:30 APTT 28 SECONDS (21-34) 10/14/17 16:30
[2017-10-27] MEDS: Micafungin 100 MG in Sodium Chloride 0.9% 100 ML IV SCH (17:38)
--- NOTE | 2017-10-27 20:26 | CARD ---
APPROVED REPORT EXAM: Two-dimensional and M-mode echocardiogram with Doppler and color Doppler. Other Information Quality : TDSRhythm : INDICATION CAD Rule out subacute bacterial endocarditis RISK FACTORS Hypertension Hyperlipidemia 2D DIMENSIONS IVSd1.1 (0.7-1.1cm)LVDd4.5 (3.9-5.9cm) PWd1.2 (0.7-1.1cm)LVDs3.5 (2.5-4.0cm) FS (%) 21.4 %LVEF (%)43.7 (>50%) M-Mode DIMENSIONS Left Atrium (MM)4.58 (2.5-4.0cm)Aortic Root3.14 (2.2-3.7cm) Aortic Cusp Exc.2.18 (1.5-2.0cm) Mitral Valve MV A [id number]/sE/A ratio0.0 TDI E/Lateral E'0.0E/Medial E'0.0 Tricuspid Valve TR Peak [id number] Peak Gr.[id number] LEFT VENTRICLE The left ventricle is normal size. There is normal left ventricular wall thickness. The left ventricular function is markedly reduced, with diffuse hypokinesis. THe septim is akinetic. The left ventricular ejection fraction is viusally about 20%. No regional wall motion abnormalities noted. The left ventricular diastolic function is indeterminate No left ventricle thrombus noted on this study. There is no ventricular septal defect visualized. There is no left ventricular aneurysm. There is no mass noted in the left ventricle. RIGHT VENTRICLE The right ventricle is normal size. There is normal right ventricular wall thickness. The right ventricular systolic function is normal. ATRIA The left atrium size is normal. The right atrium size is normal. The interatrial septum is intact with no evidence for an atrial septal defect. AORTIC VALVE The aortic valve is normal in structure and function. Trace aortic regurgitation is present. There is no aortic valvular stenosis. There is no aortic valvular vegetation. MITRAL VALVE The mitral valve is normal in structure and function. There is no evidence of mitral valve prolapse. There is no mitral valve stenosis. There is no mitral valve regurgitation noted. TRICUSPID VALVE The tricuspid valve is normal in structure and function. There is no tricuspid valve regurgitation noted. There is no tricuspid valve prolapse or vegetation. There is no tricuspid valve stenosis. PULMONIC VALVE The pulmonary valve is normal in structure and function. There is no pulmonic valvular regurgitation. There is no pulmonic valvular stenosis. GREAT VESSELS The aortic root is normal in size. The ascending aorta is normal in size. The pulmonary artery is normal. The IVC is normal in size and collapses >50% with inspiration. PERICARDIAL EFFUSION The pericardium appears normal. There is no pleural effusion. <Conclusion> The left ventricular function is markedly reduced, with diffuse hypokinesis. THe septim is akinetic. The left ventricular ejection fraction is viusally about 20%. Trace aortic regurgitation is present.
[2017-10-27] MEDS ORDERED: Acetaminophen 650mg/20.3ml solution UD PO ONE (21:00)
[2017-10-28] MEDS: Ipratropium 0.02% Inhal Soln (0.5 mg/2.5 ml) UD IH SCH ×4 (01:44→19:38)
--- NOTE | 2017-10-28 02:06 | PN ---
ADDENDUM The patient remains lethargic. The resident called me as the blood cultures grew yeast and he has been having urine which had yeast and he has been on Diflucan before. Remains in the ICU on telemetry. PHYSICAL EXAMINATION: VITAL SIGNS: T-max 101, blood pressure has been 118/57, tachycardic, has a trach mask on. LUNGS: Clear. Occasional rhonchi. HEART: S1, is tachycardic. ABDOMEN: Remains with a PEG tube. No guarding, no rigidity present, it is prominent, he does have a sacral decubitus and he was going to go for debridement. He also has a dialysis catheter on the right side. EXTREMITIES: Remain with Venodyne boots at this time. Labs show white count is 17.7, hemoglobin 9.2, hematocrit 28.6, platelet count is 372. The patient was made DNR and comfort care by the family, as they refused further invasive line changes and debridement. They have agreed for IV antibiotics and to continue hemodialysis, so we are looking into blood cultures. Now his BUN is 47, creatinine is 2.7. The blood culture has yeast, so we would need to change all the lines including the dialysis catheter and it could be related to the urine infection and to the sacral decubitus. So, at this time, since they did not allow for any changes of catheter, I will place him on Mycamine, meropenem and Flagyl, and we will continue to monitor. Also the x-ray from 10/25/2017 was showing left lower lobe atelectasis, small left pleural effusion, interval development of discoid atelectasis, supported by support line. I do not think that is significant. Only thing is that he has now fungemia and needs dialysis change and aggressive changes of all the catheters that he has, plus an echocardiogram to rule out endocarditis, but since the patient's family has agreed to comfort measures, I would just cling to Mycamine, and leave the rest to the primary to discuss with the patient's family. Allan Lawrence MD
[2017-10-28] MEDS: Meropenem 500 MG in Sodium Chloride 0.9% 100 ML IVPB SCH ×3 (05:00→21:53)
[2017-10-28 06:33] LABS: BASO # 0.1 K/uL (0.0-0.2); BASO % 0.3 % (0.0-2.0); EOS # 0.1 K/uL (0.0-0.7); EOS % 0.5 % (0.0-4.0); HEMATOCRIT 28.9 % (35.0-51.0); LYMPH # 2.8 K/uL (1.0-4.3); LYMPH % 12.6 % (20.0-40.0); MEAN CELL VOLUME 92.9 fL (80.0-94.0); MEAN CORPUSCULAR HEMOGLOBIN 28.7 pg (27.0-31.0); MEAN CORPUSCULAR HGB CONC 30.9 g/dL (33.0-37.0); MEAN PLATELET VOLUME 8.5 fL (7.2-11.7); MONO # 1.2 K/uL (0.0-0.8); MONO % 5.4 % (0.0-10.0); NRBC % 1.1 % (0.0-2.0); RED CELL DISTRIBUTION WIDTH 22.6 % (11.5-14.5); WHITE BLOOD COUNT 22.4 K/uL (4.8-10.8)
[2017-10-28] MEDS: (Novolog) Insulin Aspart, Recombinant 100 u/ml 10 ml vial SC SCH ×3 (06:33→18:41)
[2017-10-28 06:42] LABS: ALB/GLOB RATIO 0.6 (1.0-2.1); BILIRUBIN,TOTAL 0.4 mg/dL (0.2-1.3); CALCIUM 7.4 mg/dl (8.6-10.4); MAGNESIUM 2.1 mg/dL (1.6-2.3); POTASSIUM 4.1 mmol/L (3.6-5.2); TOTAL PROTEIN 6.4 g/dL (6.3-8.3)
[2017-10-28] MEDS: Saccharomyces Boulardi 250 mg Cap PO SCH ×2 (09:20→17:38)
[2017-10-28] MEDS: Vitamins A & D Oint UD Foilpak TOP PRN (09:21)
[2017-10-28] MEDS: Insulin Detemir 100 units/ml Vial (Levemir) SC SCH ×2 (09:21→21:52)
[2017-10-28] MEDS: Multiple Vitamins Oral Solution PEG SCH (09:21)
--- NOTE | 2017-10-28 10:06 | CP.PCM.PN ---
<Renetta Henson - Last Filed: 10/28/17 16:45> Subjective - Date & Time of Evaluation Date of Evaluation: 10/28/17 Time of Evaluation: 10:06 - Subjective Subjective: Medicine Progress Note for Dr. Barth Patient was seen and examined at bedside in no acute distress. Review of systems unobtainable due to patient's condition. As per nursing, patient had fever overnight and was given Tylenol. Currently afebrile. Objective - Vital Signs/Intake and Output Vital Signs (last 24 hours): Temp Pulse Resp BP Pulse Ox 99.7 F H 122 H 38 H 127/51 L 100 10/28/17 09:40 10/28/17 09:35 10/28/17 09:40 10/28/17 09:40 10/28/17 09:40 Intake and Output: 10/28/17 10/28/17 06:59 18:59 Intake Total 920 Output Total 100 Balance 820 - Medications Medications: Current Medications Ascorbic Acid (Vitamin C 500 Mg Tab) 500 mg PEG DAILY [facility] Last Admin: 10/28/17 09:20 Dose: 500 mg Aspirin (Aspirin Chewable) 81 mg PO DAILY [facility] Last Admin: 10/28/17 09:20 Dose: 81 mg Calcitriol (Rocaltrol) 0.25 mcg PEG DAILY [facility] Last Admin: 10/28/17 09:20 Dose: 0.25 mcg Epoetin Asim (Procrit) 10,000 unit IV MWF [facility] Last Admin: 10/26/17 17:13 Dose: 10,000 unit Meropenem 500 mg/ Sodium (Chloride) 100 mls @ 100 mls/hr IVPB Q8 [facility] Last Admin: 10/28/17 05:00 Dose: 100 mls/hr Micafungin Sodium 100 mg/ (Sodium Chloride) 100 mls @ 100 mls/hr IV Q24H [facility] Last Admin: 10/27/17 17:38 Dose: 100 mls/hr Insulin Aspart (Novolog) 0 unit SC Q6 [facility] PRN Reason: Protocol Last Admin: 10/28/17 06:33 Dose: 4 unit Insulin Detemir (Levemir) 25 unit SC Q12 [facility] Last Admin: 10/28/17 09:21 Dose: 25 unit Ipratropium [place] (Atrovent) 0.5 mg IH RQ6 [facility] Last Admin: 10/28/17 07:13 Dose: 0.5 mg Loperamide HCl (Imodium) 1 mg PO Q4H PRN PRN Reason: Diarrhea Last Admin: 10/26/17 09:00 Dose: 1 mg Metoprolol Tartrate (Lopressor) 25 mg PEG BIDBS [facility] Last Admin: 10/25/17 09:58 Dose: Not Given Metronidazole (Flagyl) 500 mg GT Q8 [facility] Last Admin: 10/28/17 05:00 Dose: 500 mg Midodrine (Proamatine) 10 mg PO TID [facility] Last Admin: 10/28/17 09:20 Dose: 10 mg Multivitamins/Vitamin C (Multi-Delyn Liquid) 5 ml PEG DAILY [facility] Last Admin: 10/28/17 09:21 Dose: 5 ml Ondansetron HCl (Zofran Inj) 4 mg IVP Q8H PRN PRN Reason: Nausea/Vomiting Pantoprazole Sodium (Protonix Inj) 40 mg IVP DAILY [facility] Last Admin: 10/28/17 09:21 Dose: 40 mg Rosuvastatin Calcium (Crestor) 10 mg PO HS [facility] Last Admin: 10/27/17 21:12 Dose: 10 mg Saccharomyces Boulardii (Florastor) 250 mg PO BID [facility] Last Admin: 10/28/17 09:20 Dose: 250 mg Vitamin A (Vitamin A & D Oint Ud Foilpak) 0.5 ea TOP Q1H PRN PRN Reason: Dry skin Last Admin: 10/28/17 09:21 Dose: 0.5 ea - Labs Labs: 10/28/17 06:18 10/28/17 06:18 PT 13.4 SECONDS (9.7-12.2) H 10/14/17 16:30 INR 1.2 10/14/17 16:30 APTT 28 SECONDS (21-34) 10/14/17 16:30 - Constitutional Appears: No Acute Distress - Head Exam Head Exam: ATRAUMATIC, NORMAL INSPECTION - Eye Exam Eye Exam: absent: EOMI - ENT Exam ENT Exam: Mucous Membranes Moist - Neck Exam Additional comments: Trach in place - Respiratory Exam Respiratory Exam: Rhonchi. absent: Clear to Ausculation Bilateral, Respiratory Distress Additional comments: congestion bilaterally - Cardiovascular Exam Cardiovascular Exam: REGULAR RHYTHM, +S1, +S2 - GI/Abdominal Exam GI & Abdominal Exam: Soft, Normal Bowel Sounds. absent: Distended, Firm Additional comments: PEG in place; dressing clean, dry and intact - Extremities Exam Extremities Exam: absent: Pedal Edema - Neurological Exam Neurological Exam: Altered. absent: Alert, Awake, Oriented x3 - Psychiatric Exam Psychiatric exam: absent: Normal Affect, Normal Mood - Skin Skin Exam: Dry, Intact, Normal Color, Warm Assessment and Plan - Assessment and Plan (Free Text) Plan: Assessment: 77M with ARDS s/p cardiac arrest, with pulmonary edema and NSTEMI * Ipratropium 0.02% (atrovent) 0.5mg IH RQ6H * 10/24 CXR: questionable interval atelectasis or infiltrate in medial right base * 10/23 mid bibasilar atelectasis. questionable small left-sided effusion * CXR left lobe atelectasis v pna * 10/26 right midline removed, tip of midline sent for culture 10/26, new midline placed on left arm 10/26 * 10/[address] Lawrence: fungal infection in blood, lines should be changed. * 10/[address] Lawrence: fungal infection in blood, lines should be changed. * reach out to Mrs. Wolf, if family does want patient on dialysis: dialysis needs to be changed * f/u echo to rule out vegetations * 10/28: Family wants patient to receive dialysis; consulted surgery for permacath replacement. * Surgery consulted, Dr. Forbes, help appreciated * Patient received dialysis today; developed sinus tachycardia during; continue to monitor on telemetry. * ECHO: LV function markedly reduced, diffuse hypokinesis; septum is akinetic; LV EF 20%; Trace AR. * Continue mycamine 100mg POQD, merrem 500 POQD, flagy 500mg GT Q8 Constipation, resolved * Dulcolax 10mg TX Once PRN 10/21, patient had a dark brown BM yesterday, none today per nursing staff * Patient is having diarrhea in the Flexseal. Cultures were taken, currently negative * GI Dr. Wills consulted: does not feel that it would be in the best interest of the patient at this time to do any invasive procedure or examination. Diarrhea * One dose of immodium given overnight Hypotensive, resolving, stable * Metoprolol on hold Leukocytosis * current cultures negative (blood, stool and wound) * 10/14 urine culture: yeast * 10/14 blood culture is positive for yeast * f/u stool culture from rectoseal from 10/23 * 10/26 WBC 25.5 * 10/27 WBC 17 * Saccharomyces boulardi (florastor) 250mg PO BID * Blood cx x1 from 10/24: positive for Reny Glabrata * Second blood cx showed no growth * As per ID, suggested replacing dialysis lines due to fungal infection * 10/26: catheter tip cx: no growth * Continue mycamine 100mg POQD, Flagyl 500mg GT Q8m Merem 500mg IV Q8 Abnormal Stress test, history of AICD, hx CAD * ASA 81mg POQD * Rosuvastatin [id number] POQHS Atrial Flutter, resolved * Cardiology Consult (Dr. Cortés) * Aspirin 81mg PO daily * c/w Eliquis 2.5mg PO bid * Eliquis held d/t Hgb 6.6 10/24 Low hemoglobin * Epoeitin asim [id number] u IV M, W, F * 10/24: Eliquis held d/t Hgb 6.6; 2uPRBC administered after dialysis * Hgb 11.2 after 2uPRBC Hypocalcemia * Calcitriol 0.25 mcg PEG daily UTI, yeast positive * 10/14 urine positive for yeast * Discontinued Diflucan 100mg/50cc NS @ 55cc/hr QD Unstageable Sacral Ulcer, Left Ear Auriclular ulcer, Right Heal Ulcer * Continue to monitor HTN, medications held until blood pressure is higher * Midodrine (proamatine) * Metoprolol 25mg PEG BID BS DM * Levemir 25 units SC Q12 * ISS * Glucose accuchecks CKD with Dialysis * Dialysis MWF via permacath * Patient received dialysis today, 10/28. * During dialysis, patient developed sinus tachycardia. continue to monitor on telemetry Prophylaxis * Pepcid 20mg POQD * Zofran 4mg IVP Q8H PRN Diet: tube feeds: Vital 1.2 initial rate 20cc/hr with goal rate 70cc/hr Patient is at goal rate Social Work Patient's new insurance does not accept LTAC. New insurance starts October 28 Patient to possibly go to [facility] nitro worker to provide letter to have daughter in [facility] get a visa to come to the [place] to see her father. Comfort measures in place. POL in chart, signed DNR as of 1900 on 10/25/1710/25 Patient was made DNR/DNI by of Patient Currently waiting for [facility] to accept the patient when new insurance starts 10/28/17 Disposition: reach out to Mrs. Wolf, if family does want patient on dialysis : dialysis needs to be changed If patient's family wants patient on dialysis, reached out to surgery team. As of 10/28, surgery was consulted to change permacath for dialysis. Patient received dialsysis today. During dialysis, patient developed sinus tachycardia- continue monitoring on telemetry. Patient discussed with DR. Cullen Barth <Cullen Barth - Last Filed: 10/28/17 17:50> Objective - Vital Signs/Intake and Output Vital Signs (last 24 hours): Temp Pulse Resp BP Pulse Ox 98.5 F 134 H 20 105/45 L 100 10/28/17 16:00 10/28/17 16:00 10/28/17 16:00 10/28/17 15:22 10/28/17 16:00 Intake and Output: 10/28/17 10/28/17 06:59 18:59 Intake Total 920 850 Output Total 100 295 Balance 820 555 - Medications Medications: Current Medications Ascorbic Acid (Vitamin C 500 Mg Tab) 500 mg PEG DAILY [facility] Last Admin: 10/28/17 09:20 Dose: 500 mg Aspirin (Aspirin Chewable) 81 mg PO DAILY [facility] Last Admin: 10/28/17 09:20 Dose: 81 mg Calcitriol (Rocaltrol) 0.25 mcg PEG DAILY [facility] Last Admin: 10/28/17 09:20 Dose: 0.25 mcg Epoetin Asim (Procrit) 10,000 unit IV MWF [facility] Last Admin: 10/28/17 12:09 Dose: 10,000 unit Micafungin Sodium 100 mg/ (Sodium Chloride) 100 mls @ 100 mls/hr IV Q24H [facility] Last Admin: 10/27/17 17:38 Dose: 100 mls/hr Meropenem 500 mg/ Sodium (Chloride) 100 mls @ 100 mls/hr IVPB Q8 [facility] Insulin Aspart (Novolog) 0 unit SC Q6 [facility] PRN Reason: Protocol Last Admin: 10/28/17 12:27 Dose: 2 unit Insulin Detemir (Levemir) 25 unit SC Q12 [facility] Last Admin: 10/28/17 09:21 Dose: 25 unit Ipratropium [place] (Atrovent) 0.5 mg IH RQ6 [facility] Last Admin: 10/28/17 13:26 Dose: 0.5 mg Loperamide HCl (Imodium) 1 mg PO Q4H PRN PRN Reason: Diarrhea Last Admin: 10/26/17 09:00 Dose: 1 mg Metoprolol Tartrate (Lopressor) 25 mg PEG BIDBS [facility] Last Admin: 10/25/17 09:58 Dose: Not Given Metronidazole (Flagyl) 500 mg GT Q8 [facility] Last Admin: 10/28/17 13:53 Dose: 500 mg Midodrine (Proamatine) 10 mg PO TID [facility] Last Admin: 10/28/17 13:53 Dose: 10 mg Multivitamins/Vitamin C (Multi-Delyn Liquid) 5 ml PEG DAILY [facility] Last Admin: 10/28/17 09:21 Dose: 5 ml Ondansetron HCl (Zofran Inj) 4 mg IVP Q8H PRN PRN Reason: Nausea/Vomiting Pantoprazole Sodium (Protonix Inj) 40 mg IVP DAILY [facility] Last Admin: 10/28/17 09:21 Dose: 40 mg Rosuvastatin Calcium (Crestor) 10 mg PO HS [facility] Last Admin: 10/27/17 21:12 Dose: 10 mg Saccharomyces Boulardii (Florastor) 250 mg PO BID [facility] Last Admin: 10/28/17 09:20 Dose: 250 mg Vitamin A (Vitamin A & D Oint Ud Foilpak) 0.5 ea TOP Q1H PRN PRN Reason: Dry skin Last Admin: 10/28/17 09:21 Dose: 0.5 ea - Labs Labs: 10/28/17 06:18 10/28/17 06:18 PT 13.4 SECONDS (9.7-12.2) H 10/14/17 16:30 INR 1.2 10/14/17 16:30 APTT 28 SECONDS (21-34) 10/14/17 16:30 Attending/Attestation - Attestation I have personally seen and examined this patient.: Yes I have fully participated in the care of the patient.: Yes I have reviewed all pertinent clinical information, including history, physical exam and plan: Yes Notes (Text): 10/28/17 17:38 Patient was seen and examined at 5:00 PM 10/28/17 ICU BED 18 Exam, assessment and plan were thoroughly gone over with the resident Assessments: 1). Hx Acute Respiratory Failure/ARDS/Cadiac Arrest/NSTEMI 2). Hx Abnormal Stress Test/AICD/CAD 3). Hx Atrial Flutter: stopped Eliquis 10/24/17 secondary significant drop in HgB. Heart Rate is elevated however can not restart Metoprolol due to the low blood pressure. 4). 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 Leukocytosis: still elevated. Blood Culture 10/22/17 is finalized as negative. Sputum culture 10/14/17 is negative. Stool cultures 10/20/17 are negative. Blood Culture 10/24/17 showed Reny glabrata. Right Arm Midline Tip 10/06/17 cutlure is negative. Cefepime (10/12/17 through 10/24/17), Aztreonam ( through 10/22/17)), Diflucan (10/14/17 through 10/26/17). Currently on Meropenem 500 mg IV Q8H (10/28/17), Micofungin 100 mg IV Q24H (10/27/17)Flagyl ( 10/16/17) F/U Midline Tip Culture 6). Hx Pneumonia 7). Hx HTN: Metoprolol was placed on hold secondary to the Hypotension. Continue Midodrine. Lisinopril was discontinued on 10/14/17 at the time of HABITAT BIOLOGIST for Hypotension 8). Hx CKD on HD . Family would like to continue HD through current Permacath and surgical intervention to change catheter as recommended by Vascular Surgery 9). Hx DM: Levemir increased to 25 Units SC AM and PM. Will adjust on 10/29/17. 10). Hx HLD 11). Hx Anemia: Eliquis stopped 10/24/17 and was transfused 2 units PRBCs. CBC morning 10/25/17 dropped from 11.2 post trasfusion 10/24/17 to 10.2 morning . Stool Occult is Positive and GI Dr. Dsouza was reconsulted however no further workup recommended in light of patient current status. 12). Hx DVT 13). Hx UTI: Yeast on culture 10/24/17. He is currently on Micofungin 100 mg IV Q24H. He may be colonized with this. 14). Hx Alzheimer's Dimentia 15). Hx Sacral Ulcer: currently on MediHoney daily 16). Hx Right Heal Ulcer: improved on exam and area of necrosis is decreased since my last exam 10/02/17. Pravolon boots 17). Hx Elevated LFTs 18). Diarrhea: on Rectal Seal and producing dark brown/black stools that are watery. Stool Studies 10/20/17 are negative 19). Hx Hyponatremia: stabalized 20). Hx PEG Tube: Vital 1.5 at 50 ml/hour 21). Hx Hypocalcemia: Calcitriol 22). Prophylactic Measures: Vitamin C, Dulcolax PRN, Pepcid, MVI, Zofran PRN, Florastor Spoke with at length with patient's Nephew Patrick and with whom Family conference was held with Palliative Care Nurse Loni and Commission Sales Associate Nehal on 10/25/17. Explained the multiple chronic issues and that I did not believe that patient would show significant improvement in light of the Anemia, Heart Failure, Renal Failure. decided on DNR/DNI and comfort care. DIOGENES is in chart. Optical Effects Line Up Person Demetria Angel informed me 10/24/17 that patient will have new Medicaid Insurance by 10/28/17 that will be accepted by [facility]. Unfortunately this insurance, I was informed, is not accepted by [facility]. Cullen Barth D.O.
--- NOTE | 2017-10-28 10:35 | CP.PCM.CON ---
History of Present Illness - History of Present Illness History of Present Illness: General Surgery Consult Note for Dr. Forbes HPI: 77M s/p permacath, percutaneous tacheostomy, and sacral decubitus ulcer, is referred for evaluation of permacath site as potential site of infection. One of two recent blood cultures (10/24) showed yeast in the blood stream. Patient has history of anoxic encephalopathy and unable to communicate. PMH: ESRD on dialysis (MWF), Anoxic encephalopathy, CAD with stent, DM, Pacemaker, CHF, HTN, HLD PSH: Percutaneous tracheostomy, Abdominal hernia repair, pacemaker placement, PEG placement All: NKDA Meds: As per medical record SH: unobtainable Review of Systems - Review of Systems Systems not reviewed;Unavailable: Altered Mental Status, Intubated Past Patient History - Infectious Disease Hx of Infectious Diseases: None - Past Medical History & Family History Past Medical History?: Yes - Past Social History Smoking Status: Never Smoked Chewing Tobacco Use: No Cigar Use: No Alcohol: None Drugs: Denies Home Situation {Lives}: With Family - CARDIAC Hx Congestive Heart Failure: Yes Hx Hypertension: Yes - PULMONARY Hx Asthma: Yes - RENAL Hx Chronic Kidney Disease: Yes (REANAL INSUFFICIENCY) Hx Kidney Stones: Yes - ENDOCRINE/METABOLIC Hx Diabetes Mellitus Type 2: Yes - MUSCULOSKELETAL/RHEUMATOLOGICAL Hx Arthritis: Yes - GENITOURINARY/GYNECOLOGICAL Hx Genitourinary Disorders: Yes Hx Prostate Problems: Yes (ELEVATED PSA) - PSYCHIATRIC Hx Anxiety: Yes Hx Depression: Yes Hx Substance Use: No - SURGICAL HISTORY Hx Surgeries: Yes Other/Comment: pacemaker on - ANESTHESIA Hx Anesthesia: Yes Hx Anesthesia Reactions: No Hx Malignant Hyperthermia: No Meds Allergies/Adverse Reactions: Allergies Allergy/AdvReac Type Severity Reaction Status Date / Time No Known Allergies Allergy Verified 08/06/17 13:20 - Medications Medications: Current Medications Ascorbic Acid (Vitamin C 500 Mg Tab) 500 mg PEG DAILY [facility] Last Admin: 10/28/17 09:20 Dose: 500 mg Aspirin (Aspirin Chewable) 81 mg PO DAILY [facility] Last Admin: 10/28/17 09:20 Dose: 81 mg Calcitriol (Rocaltrol) 0.25 mcg PEG DAILY [facility] Last Admin: 10/28/17 09:20 Dose: 0.25 mcg Epoetin [place] (Procrit) 10,000 unit IV MWF [facility] Last Admin: 10/26/17 17:13 Dose: 10,000 unit Meropenem 500 mg/ Sodium (Chloride) 100 mls @ 100 mls/hr IVPB Q8 [facility] Last Admin: 10/28/17 05:00 Dose: 100 mls/hr Micafungin Sodium 100 mg/ (Sodium Chloride) 100 mls @ 100 mls/hr IV Q24H [facility] Last Admin: 10/27/17 17:38 Dose: 100 mls/hr Insulin Aspart (Novolog) 0 unit SC Q6 [facility]ERNAND[facility] PRN Reason: Protocol Last Admin: 10/28/17 06:33 Dose: 4 unit Insulin Detemir (Levemir) 25 unit SC Q12 [facility] Last Admin: 10/28/17 09:21 Dose: 25 unit Ipratropium [place] (Atrovent) 0.5 mg IH RQ6 [facility] Last Admin: 10/28/17 07:13 Dose: 0.5 mg Loperamide HCl (Imodium) 1 mg PO Q4H PRN PRN Reason: Diarrhea Last Admin: 10/26/17 09:00 Dose: 1 mg Metoprolol Tartrate (Lopressor) 25 mg PEG BIDBS [facility] Last Admin: 10/25/17 09:58 Dose: Not Given Metronidazole (Flagyl) 500 mg GT Q8 [facility] Last Admin: 10/28/17 05:00 Dose: 500 mg Midodrine (Proamatine) 10 mg PO TID [facility] Last Admin: 10/28/17 09:20 Dose: 10 mg Multivitamins/Vitamin C (Multi-Delyn Liquid) 5 ml PEG DAILY [facility] Last Admin: 10/28/17 09:21 Dose: 5 ml Ondansetron HCl (Zofran Inj) 4 mg IVP Q8H PRN PRN Reason: Nausea/Vomiting Pantoprazole Sodium (Protonix Inj) 40 mg IVP DAILY [facility] Last Admin: 10/28/17 09:21 Dose: 40 mg Rosuvastatin Calcium (Crestor) 10 mg PO HS [facility] Last Admin: 10/27/17 21:12 Dose: 10 mg Saccharomyces Boulardii (Florastor) 250 mg PO BID [facility] Last Admin: 10/28/17 09:20 Dose: 250 mg Vitamin A (Vitamin A & D Oint Ud Foilpak) 0.5 ea TOP Q1H PRN PRN Reason: Dry skin Last Admin: 10/28/17 09:21 Dose: 0.5 ea Physical Exam - Head Exam Head Exam: ATRAUMATIC, NORMOCEPHALIC - Eye Exam Eye Exam: EOMI. absent: Scleral icterus - ENT Exam ENT Exam: Mucous Membranes Dry Additional comments: Tracheostomy present and intact. - Respiratory Exam Respiratory Exam: Decreased Breath Sounds, Rhonchi - Cardiovascular Exam Cardiovascular Exam: Tachycardia, REGULAR RHYTHM - GI/Abdominal Exam GI & Abdominal Exam: Soft. absent: Firm, Guarding, Rebound, Rigid - Rectal Exam Rectal Exam: Deferred - Extremities Exam Extremities exam: Positive for: normal inspection, pedal edema - Neurological Exam Neurological exam: Altered - Skin Skin Exam: Dry, Warm - Additional Findings Additional findings: Permacath present in right chest. No presence of erythema. Tegaderm and biopatch covering site clean and intact. Results - Vital Signs Recent Vital Signs: Last Vital Signs Temp 99.7 F H 10/28/17 09:40 Pulse 122 H 10/28/17 09:35 Resp 38 H 10/28/17 09:40 BP 93/45 L 10/28/17 10:10 Pulse Ox 100 10/28/17 09:55 - Labs Result Diagrams: 10/28/17 06:18 10/28/17 06:18 Labs: Laboratory Results - last 24 hr 10/27/17 10/27/17 10/27/17 06:38 12:47 17:55 WBC RBC Hgb Hct MCV MCH MCHC RDW Plt Count MPV Neut % (Auto) Lymph % (Auto) Bledsoe % (Auto) Eos % (Auto) Baso % (Auto) Neut # Lymph # Bledsoe # Eos # Baso # Sodium Potassium Chloride Carbon Dioxide Anion Gap BUN Creatinine Est GFR ( Amer) Est GFR (Non-Af Amer) POC Glucose (mg/dL) 452 H* 389 H Random Glucose Calcium Phosphorus Magnesium Ferritin 960.0 Total Bilirubin AST ALT Alkaline Phosphatase Total Protein Albumin Globulin Albumin/Globulin Ratio 10/27/17 10/27/17 10/28/17 22:07 23:42 01:30 WBC RBC Hgb Hct MCV MCH MCHC RDW Plt Count MPV Neut % (Auto) Lymph % (Auto) Bledsoe % (Auto) Eos % (Auto) Baso % (Auto) Neut # Lymph # Bledsoe # Eos # Baso # Sodium Potassium Chloride Carbon Dioxide Anion Gap BUN Creatinine Est GFR ( Amer) Est GFR (Non-Af Amer) POC Glucose (mg/dL) 397 H 441 H* 395 H Random Glucose Calcium Phosphorus Magnesium Ferritin Total Bilirubin AST ALT Alkaline Phosphatase Total Protein Albumin Globulin Albumin/Globulin Ratio 10/28/17 10/28/17 10/28/17 06:01 06:18 06:18 WBC 22.4 H RBC 3.11 L Hgb 8.9 L Hct 28.9 L MCV 92.9 MCH 28.7 MCHC 30.9 L RDW 22.6 H Plt Count 388 MPV 8.5 Neut % (Auto) 81.2 H Lymph % (Auto) 12.6 L Bledsoe % (Auto) 5.4 Eos % (Auto) 0.5 Baso % (Auto) 0.3 Neut # 18.2 H Lymph # 2.8 Bledsoe # 1.2 H Eos # 0.1 Baso # 0.1 Sodium 138 Potassium 4.1 Chloride 97 L Carbon Dioxide 26 Anion Gap 20 BUN 70 H Creatinine 3.7 H Est GFR ( Amer) 19 Est GFR (Non-Af Amer) 16 POC Glucose (mg/dL) 311 H Random Glucose 417 H* Calcium 7.4 L Phosphorus Magnesium 2.1 Ferritin Total Bilirubin 0.4 AST 37 ALT 46 Alkaline Phosphatase 103 Total Protein 6.4 Albumin 2.5 L Globulin 3.9 Albumin/Globulin Ratio 0.6 L 10/28/17 06:18 WBC RBC Hgb Hct MCV MCH MCHC RDW Plt Count MPV Neut % (Auto) Lymph % (Auto) Bledsoe % (Auto) Eos % (Auto) Baso % (Auto) Neut # Lymph # Bledsoe # Eos # Baso # Sodium Potassium Chloride Carbon Dioxide Anion Gap BUN Creatinine Est GFR ( Amer) Est GFR (Non-Af Amer) POC Glucose (mg/dL) Random Glucose Calcium Phosphorus 5.0 H Magnesium Ferritin Total Bilirubin AST ALT Alkaline Phosphatase Total Protein Albumin Globulin Albumin/Globulin Ratio Assessment & Plan - Assessment and Plan (Free Text) Assessment: 77M with PMHx of anoxic encephalopathy and s/p percutaneous tracheostomy, permacath insertion, PEG insertion, and cardiac pacemaker, with recent blood culture positive for yeast species.
[2017-10-28] MEDS: Epoetin Alfa 10,000 unit/ml Dialysis IV SCH (12:09)
--- NOTE | 2017-10-28 12:38 | CP.PCM.PN ---
Subjective - Date & Time of Evaluation Date of Evaluation: 10/28/17 Time of Evaluation: 11:40 - Subjective Subjective: The patient seen and examined Status post tracheostomy Appears very congested Productive positive for Reny remains lethargic On antibiotics per infectious disease No debridement as per family Objective - Vital Signs/Intake and Output Vital Signs (last 24 hours): Temp Pulse Resp BP Pulse Ox 99.7 F H 128 H 39 H 100/62 100 10/28/17 09:40 10/28/17 11:08 10/28/17 11:08 10/28/17 12:10 10/28/17 12:10 Intake and Output: 10/28/17 10/28/17 06:59 18:59 Intake Total 920 370 Output Total 100 Balance 820 370 - Medications Medications: Current Medications Ascorbic Acid (Vitamin C 500 Mg Tab) 500 mg PEG DAILY [facility] Last Admin: 10/28/17 09:20 Dose: 500 mg Aspirin (Aspirin Chewable) 81 mg PO DAILY [facility] Last Admin: 10/28/17 09:20 Dose: 81 mg Calcitriol (Rocaltrol) 0.25 mcg PEG DAILY [facility] Last Admin: 10/28/17 09:20 Dose: 0.25 mcg Epoetin Chencho (Procrit) 10,000 unit IV MWF [facility] Last Admin: 10/28/17 12:09 Dose: 10,000 unit Meropenem 500 mg/ Sodium (Chloride) 100 mls @ 100 mls/hr IVPB Q8 [facility] Last Admin: 10/28/17 05:00 Dose: 100 mls/hr Micafungin Sodium 100 mg/ (Sodium Chloride) 100 mls @ 100 mls/hr IV Q24H [facility] Last Admin: 10/27/17 17:38 Dose: 100 mls/hr Insulin Aspart (Novolog) 0 unit SC Q6 [facility] PRN Reason: Protocol Last Admin: 10/28/17 06:33 Dose: 4 unit Insulin Detemir (Levemir) 25 unit SC Q12 [facility] Last Admin: 10/28/17 09:21 Dose: 25 unit Ipratropium [place] (Atrovent) 0.5 mg IH RQ6 [facility] Last Admin: 10/28/17 07:13 Dose: 0.5 mg Loperamide HCl (Imodium) 1 mg PO Q4H PRN PRN Reason: Diarrhea Last Admin: 10/26/17 09:00 Dose: 1 mg Metoprolol Tartrate (Lopressor) 25 mg PEG BIDBS [facility] Last Admin: 10/25/17 09:58 Dose: Not Given Metronidazole (Flagyl) 500 mg GT Q8 [facility] Last Admin: 10/28/17 05:00 Dose: 500 mg Midodrine (Proamatine) 10 mg PO TID [facility] Last Admin: 10/28/17 09:20 Dose: 10 mg Multivitamins/Vitamin C (Multi-Delyn Liquid) 5 ml PEG DAILY [facility] Last Admin: 10/28/17 09:21 Dose: 5 ml Ondansetron HCl (Zofran Inj) 4 mg IVP Q8H PRN PRN Reason: Nausea/Vomiting Pantoprazole Sodium (Protonix Inj) 40 mg IVP DAILY [facility] Last Admin: 10/28/17 09:21 Dose: 40 mg Rosuvastatin Calcium (Crestor) 10 mg PO HS [facility] Last Admin: 10/27/17 21:12 Dose: 10 mg Saccharomyces Boulardii (Florastor) 250 mg PO BID [facility] Last Admin: 10/28/17 09:20 Dose: 250 mg Vitamin A (Vitamin A & D Oint Ud Foilpak) 0.5 ea TOP Q1H PRN PRN Reason: Dry skin Last Admin: 10/28/17 09:21 Dose: 0.5 ea - Labs Labs: 10/28/17 06:18 10/28/17 06:18 PT 13.4 SECONDS (9.7-12.2) H 10/14/17 16:30 INR 1.2 10/14/17 16:30 APTT 28 SECONDS (21-34) 10/14/17 16:30 Assessment and Plan (1) Hypotension (arterial) Status: Acute (2) Pneumonia Status: Acute (3) Cardiac arrest Status: Acute (4) History of DVT (deep vein thrombosis) Status: Acute (5) CKD (chronic kidney disease) Status: Chronic (6) CHF (congestive heart failure) Status: Acute
--- NOTE | 2017-10-28 13:00 | CP.PCM.PN ---
Subjective - Date & Time of Evaluation Date of Evaluation: 10/28/17 Time of Evaluation: 12:57 - Subjective Subjective: s/p dialysis now- stopped early due to SVT- 130s UF 300ml only about same otherwise- lethargic with trach collar Objective - Vital Signs/Intake and Output Vital Signs (last 24 hours): Temp Pulse Resp BP Pulse Ox 99.7 F H 128 H 39 H 100/62 100 10/28/17 09:40 10/28/17 11:08 10/28/17 11:08 10/28/17 12:10 10/28/17 12:10 Intake and Output: 10/28/17 10/28/17 06:59 18:59 Intake Total 920 370 Output Total 100 Balance 820 370 - Medications Medications: Current Medications Ascorbic Acid (Vitamin C 500 Mg Tab) 500 mg PEG DAILY [facility] Last Admin: 10/28/17 09:20 Dose: 500 mg Aspirin (Aspirin Chewable) 81 mg PO DAILY [facility] Last Admin: 10/28/17 09:20 Dose: 81 mg Calcitriol (Rocaltrol) 0.25 mcg PEG DAILY [facility] Last Admin: 10/28/17 09:20 Dose: 0.25 mcg Epoetin [place] (Procrit) 10,000 unit IV MWF [facility] Last Admin: 10/28/17 12:09 Dose: 10,000 unit Meropenem 500 mg/ Sodium (Chloride) 100 mls @ 100 mls/hr IVPB Q8 [facility] Last Admin: 10/28/17 05:00 Dose: 100 mls/hr Micafungin Sodium 100 mg/ (Sodium Chloride) 100 mls @ 100 mls/hr IV Q24H [facility] Last Admin: 10/27/17 17:38 Dose: 100 mls/hr Insulin Aspart (Novolog) 0 unit SC Q6 [facility]ERNANDO PRN Reason: Protocol Last Admin: 10/28/17 06:33 Dose: 4 unit Insulin Detemir (Levemir) 25 unit SC Q12 [facility] Last Admin: 10/28/17 09:21 Dose: 25 unit Ipratropium [place] (Atrovent) 0.5 mg IH RQ6 [facility] Last Admin: 10/28/17 07:13 Dose: 0.5 mg Loperamide HCl (Imodium) 1 mg PO Q4H PRN PRN Reason: Diarrhea Last Admin: 10/26/17 09:00 Dose: 1 mg Metoprolol Tartrate (Lopressor) 25 mg PEG BIDBS [facility] Last Admin: 10/25/17 09:58 Dose: Not Given Metronidazole (Flagyl) 500 mg GT Q8 [facility] Last Admin: 10/28/17 05:00 Dose: 500 mg Midodrine (Proamatine) 10 mg PO TID [facility] Last Admin: 10/28/17 09:20 Dose: 10 mg Multivitamins/Vitamin C (Multi-Delyn Liquid) 5 ml PEG DAILY [facility] Last Admin: 10/28/17 09:21 Dose: 5 ml Ondansetron HCl (Zofran Inj) 4 mg IVP Q8H PRN PRN Reason: Nausea/Vomiting Pantoprazole Sodium (Protonix Inj) 40 mg IVP DAILY [facility] Last Admin: 10/28/17 09:21 Dose: 40 mg Rosuvastatin Calcium (Crestor) 10 mg PO HS [facility] Last Admin: 10/27/17 21:12 Dose: 10 mg Saccharomyces Boulardii (Florastor) 250 mg PO BID [facility] Last Admin: 10/28/17 09:20 Dose: 250 mg Vitamin A (Vitamin A & D Oint Ud Foilpak) 0.5 ea TOP Q1H PRN PRN Reason: Dry skin Last Admin: 10/28/17 09:21 Dose: 0.5 ea - Labs Labs: 10/28/17 06:18 10/28/17 06:18 PT 13.4 SECONDS (9.7-12.2) H 10/14/17 16:30 INR 1.2 10/14/17 16:30 APTT 28 SECONDS (21-34) 10/14/17 16:30 - Constitutional Appears: In Acute Distress, Cachectic, Chronically Ill - Head Exam Head Exam: ATRAUMATIC, NORMAL INSPECTION - Respiratory Exam Respiratory Exam: Rhonchi, Respiratory Distress - GI/Abdominal Exam GI & Abdominal Exam: Soft. absent: Tenderness - Extremities Exam Extremities Exam: Normal Inspection. absent: Tenderness - Neurological Exam Neurological Exam: Altered, Motor Sensory Deficit - Skin Skin Exam: Dry, Warm Assessment and Plan (1) Acute on chronic renal failure Status: Resolved (2) CAD (coronary artery disease) Status: Chronic (3) CHF exacerbation Status: Chronic (4) Type 2 diabetes mellitus with diabetic nephropathy Status: Acute (5) Cardiorenal disease Status: Acute (6) ESRD (end stage renal disease) Status: Acute (7) Sacral decubitus ulcer Status: Acute - Assessment and Plan (Free Text) Plan: Will do dialysis MWF as per family wishes Continue supportive measures
[2017-10-28] MEDS: Micafungin 100 MG in Sodium Chloride 0.9% 100 ML IV SCH (17:38)
[2017-10-28] MEDS ORDERED: MEROPENEM 500 MG in NS 500 MG/50 ML BAG IV SCH (22:00)
[2017-10-29] MEDS: (Novolog) Insulin Aspart, Recombinant 100 u/ml 10 ml vial SC SCH ×4 (01:03→19:44)
[2017-10-29] MEDS: Ipratropium 0.02% Inhal Soln (0.5 mg/2.5 ml) UD IH SCH ×4 (01:56→19:34)
--- NOTE | 2017-10-29 04:54 | CP.PCM.PN ---
<Tangela Sanchez - Last Filed: 10/29/17 04:58> Subjective - Date & Time of Evaluation Date of Evaluation: 10/29/17 Time of Evaluation: 04:58 - Subjective Subjective: Progress Note Patient seen and examined at bedside. unable to access full ROS due to clinical status. No acute events overnight Objective - Vital Signs/Intake and Output Vital Signs (last 24 hours): Temp Pulse Resp BP Pulse Ox 98.5 F 129 H 33 H 90/47 L 100 10/29/17 04:00 10/29/17 04:21 10/29/17 04:21 10/29/17 04:21 10/29/17 04:21 Intake and Output: 10/28/17 10/29/17 18:59 06:59 Intake Total 1330 620 Output Total 355 50 Balance 975 570 - Medications Medications: Current Medications Ascorbic Acid (Vitamin C 500 Mg Tab) 500 mg PEG DAILY [facility] Last Admin: 10/28/17 09:20 Dose: 500 mg Aspirin (Aspirin Chewable) 81 mg PO DAILY [facility] Last Admin: 10/28/17 09:20 Dose: 81 mg Calcitriol (Rocaltrol) 0.25 mcg PEG DAILY [facility] Last Admin: 10/28/17 09:20 Dose: 0.25 mcg Epoetin Asim (Procrit) 10,000 unit IV MWF [facility] Last Admin: 10/28/17 12:09 Dose: 10,000 unit Micafungin Sodium 100 mg/ (Sodium Chloride) 100 mls @ 100 mls/hr IV Q24H [facility] Last Admin: 10/28/17 17:38 Dose: 100 mls/hr Meropenem 500 mg/ Sodium (Chloride) 100 mls @ 100 mls/hr IVPB Q8 [facility] Last Admin: 10/28/17 21:53 Dose: 100 mls/hr Insulin Aspart (Novolog) 0 unit SC Q6 [facility] FERANNDO PRN Reason: Protocol Last Admin: 10/29/17 01:03 Dose: 4 unit Insulin Detemir (Levemir) 25 unit SC Q12 [facility] Last Admin: 10/28/17 21:52 Dose: 25 unit Ipratropium [place] (Atrovent) 0.5 mg IH RQ6 [facility] Last Admin: 10/29/17 01:56 Dose: 0.5 mg Loperamide HCl (Imodium) 1 mg PO Q4H PRN PRN Reason: Diarrhea Last Admin: 10/26/17 09:00 Dose: 1 mg Metoprolol Tartrate (Lopressor) 25 mg PEG BIDBS [facility] Last Admin: 10/25/17 09:58 Dose: Not Given Metronidazole (Flagyl) 500 mg GT Q8 [facility] Last Admin: 10/28/17 21:52 Dose: 500 mg Midodrine (Proamatine) 10 mg PO TID [facility] Last Admin: 10/28/17 17:38 Dose: 10 mg Multivitamins/Vitamin C (Multi-Delyn Liquid) 5 ml PEG DAILY [facility] Last Admin: 10/28/17 09:21 Dose: 5 ml Ondansetron HCl (Zofran Inj) 4 mg IVP Q8H PRN PRN Reason: Nausea/Vomiting Pantoprazole Sodium (Protonix Inj) 40 mg IVP DAILY [facility] Last Admin: 10/28/17 09:21 Dose: 40 mg Rosuvastatin Calcium (Crestor) 10 mg PO HS [facility] Last Admin: 10/28/17 21:52 Dose: 10 mg Saccharomyces Boulardii (Florastor) 250 mg PO BID [facility] Last Admin: 10/28/17 17:38 Dose: 250 mg Vitamin A (Vitamin A & D Oint Ud Foilpak) 0.5 ea TOP Q1H PRN PRN Reason: Dry skin Last Admin: 10/28/17 09:21 Dose: 0.5 ea - Labs Labs: 10/28/17 06:18 10/28/17 06:18 PT 13.4 SECONDS (9.7-12.2) H 10/14/17 16:30 INR 1.2 10/14/17 16:30 APTT 28 SECONDS (21-34) 10/14/17 16:30 - Constitutional Appears: Non-toxic - Eye Exam Additional comments: PAtient opens eyes to verbal stimuli at times. - Neck Exam Neck Exam: Full ROM - Respiratory Exam Respiratory Exam: Decreased Breath Sounds, NORMAL BREATHING PATTERN - Cardiovascular Exam Cardiovascular Exam: REGULAR RHYTHM, +S1, +S2 - GI/Abdominal Exam GI & Abdominal Exam: Distended, Soft. absent: Tenderness Additional comments: PEG in place. no erythema, induration, leakage - Extremities Exam Extremities Exam: Full ROM. absent: Pedal Edema - Neurological Exam Neurological Exam: Alert, Awake - Psychiatric Exam Psychiatric exam: Normal Affect, Normal Mood - Skin Skin Exam: Dry, Normal Color Assessment and Plan - Assessment and Plan (Free Text) Assessment: Assessment: 77M with ARDS s/p cardiac arrest, with pulmonary edema and NSTEMI * Ipratropium 0.02% (atrovent) 0.5mg IH RQ6H * 10/24 CXR: questionable interval atelectasis or infiltrate in medial right base * 10/23 mid bibasilar atelectasis. questionable small left-sided effusion * CXR left lobe atelectasis v pna * 10/26 right midline removed, tip of midline sent for culture 10/26, new midline placed on left arm 10/26 * 10/[address] Lawrence: fungal infection in blood, lines should be changed. * 10/[address] Lawrence: fungal infection in blood, lines should be changed. * reach out to Mrs. Wolf, if family does want patient on dialysis: dialysis needs to be changed * f/u echo to rule out vegetations * 10/28: Family wants patient to receive dialysis; consulted surgery for permacath replacement. * Surgery consulted, Dr. Forbes, help appreciated * Patient received dialysis today; developed sinus tachycardia during; continue to monitor on telemetry. * ECHO: LV function markedly reduced, diffuse hypokinesis; septum is akinetic; LV EF 20%; Trace AR. * Continue mycamine 100mg POQD, merrem 500 POQD, flagy 500mg GT Q8 Constipation, resolved * Dulcolax 10mg FL Once PRN 10/21, patient had a dark brown BM yesterday, none today per nursing staff * Patient is having diarrhea in the Flexseal. Cultures were taken, currently negative * GI Dr. Wills consulted: does not feel that it would be in the best interest of the patient at this time to do any invasive procedure or examination. Diarrhea * One dose of immodium given overnight Hypotensive, resolving, stable * Metoprolol on hold Leukocytosis * current cultures negative (blood, stool and wound) * 10/14 urine culture: yeast * 10/14 blood culture is positive for yeast * f/u stool culture from rectoseal from 10/23 * 10/26 WBC 25.5 * 10/27 WBC 17 * Saccharomyces boulardi (florastor) 250mg PO BID * Blood cx x1 from 10/24: positive for Reny Glabrata * Second blood cx showed no growth * As per ID, suggested replacing dialysis lines due to fungal infection * 10/26: catheter tip cx: no growth * Continue mycamine 100mg POQD, Flagyl 500mg GT Q8m Merem 500mg IV Q8 Abnormal Stress test, history of AICD, hx CAD * ASA 81mg POQD * Rosuvastatin [id number] POQHS Atrial Flutter, resolved * Cardiology Consult (Dr. Cortés) * Aspirin 81mg PO daily * c/w Eliquis 2.5mg PO bid * Eliquis held d/t Hgb 6.6 10/24 Low hemoglobin * Epoeitin asim 41390 u IV M, W, F * 10/24: Eliquis held d/t Hgb 6.6; 2uPRBC administered after dialysis * Hgb 11.2 after 2uPRBC Hypocalcemia * Calcitriol 0.25 mcg PEG daily UTI, yeast positive * 10/14 urine positive for yeast * Discontinued Diflucan 100mg/50cc NS @ 55cc/hr QD Unstageable Sacral Ulcer, Left Ear Auriclular ulcer, Right Heal Ulcer * Continue to monitor HTN, medications held until blood pressure is higher * Midodrine (proamatine) * Metoprolol 25mg PEG BID BS DM * Levemir 25 units SC Q12 * ISS * Glucose accuchecks CKD with Dialysis * Dialysis MWF via permacath * Patient received dialysis today, 10/28. * During dialysis, patient developed sinus tachycardia. continue to monitor on telemetry Prophylaxis * Pepcid 20mg POQD * Zofran 4mg IVP Q8H PRN Diet: tube feeds: Vital 1.2 initial rate 20cc/hr with goal rate 70cc/hr Patient is at goal rate Social Work Patient's new insurance does not accept LTAC. New insurance starts October 28 Currently waiting for [facility] to accept the patient when new insurance starts 10/28/17 director workers compensation to provide letter to have daughter in [facility] get a visa to come to the [place] to see her father. Comfort measures in place. POL in chart, signed DNR as of 1899 on 10/25/1710/25 Patient was made DNR/DNI by of Patient Disposition: 10/28 reached out to Mrs. Wolf, if family does want patient on dialysis: dialysis needs to be changed, if patient's family wants patient on dialysis, reached out to surgery team. As of 10/28, surgery was consulted to change permacath for dialysis. Patient received dialsysis today. During dialysis, patient developed sinus tachycardia- continue monitoring on telemetry. Patient discussed with DR. Cullen Sanchez DO PGY1 <Cullen Barth J - Last Filed: 10/29/17 16:41> Objective - Vital Signs/Intake and Output Vital Signs (last 24 hours): Temp Pulse Resp BP Pulse Ox 98.1 F 121 H 22 114/39 L 100 10/29/17 12:00 10/29/17 15:21 10/29/17 15:21 10/29/17 15:21 10/29/17 15:21 Intake and Output: 10/29/17 10/29/17 06:59 18:59 Intake Total 1240 760 Output Total 250 Balance 990 760 - Medications Medications: Current Medications Ascorbic Acid (Vitamin C 500 Mg Tab) 500 mg PEG DAILY [facility] Last Admin: 10/29/17 11:00 Dose: 500 mg Aspirin (Aspirin Chewable) 81 mg PO DAILY [facility] Last Admin: 10/29/17 11:00 Dose: 81 mg Calcitriol (Rocaltrol) 0.25 mcg PEG DAILY [facility] Last Admin: 10/28/17 09:20 Dose: 0.25 mcg Epoetin Asim (Procrit) 10,000 unit IV MWF [facility] Last Admin: 10/28/17 12:09 Dose: 10,000 unit Micafungin Sodium 100 mg/ (Sodium Chloride) 100 mls @ 100 mls/hr IV Q24H [facility] Last Admin: 10/28/17 17:38 Dose: 100 mls/hr Meropenem 500 mg/ Sodium (Chloride) 100 mls @ 100 mls/hr IVPB Q8 [facility] Last Admin: 10/29/17 15:00 Dose: 100 mls/hr Insulin Aspart (Novolog) 0 unit SC Q6 [facility]NA[facility]O PRN Reason: Protocol Last Admin: 10/29/17 12:00 Dose: 6 unit Insulin Detemir (Levemir) 35 unit SC Q12 [facility] Ipratropium [place] (Atrovent) 0.5 mg IH RQ6 [facility] Last Admin: 10/29/17 13:21 Dose: 0.5 mg Loperamide HCl (Imodium) 1 mg PO Q4H PRN PRN Reason: Diarrhea Last Admin: 10/29/17 11:03 Dose: 1 mg Metoprolol Tartrate (Lopressor) 25 mg PEG BIDBS [facility] Last Admin: 10/25/17 09:58 Dose: Not Given Metronidazole (Flagyl) 500 mg GT Q8 [facility] Last Admin: 10/29/17 15:00 Dose: 500 mg Midodrine (Proamatine) 10 mg PO TID [facility] Last Admin: 10/29/17 15:00 Dose: 10 mg Multivitamins/Vitamin C (Multi-Delyn Liquid) 5 ml PEG DAILY [facility] Last Admin: 10/29/17 11:00 Dose: 5 ml Ondansetron HCl (Zofran Inj) 4 mg IVP Q8H PRN PRN Reason: Nausea/Vomiting Pantoprazole Sodium (Protonix Inj) 40 mg IVP DAILY [facility] Last Admin: 10/29/17 11:00 Dose: 40 mg Rosuvastatin Calcium (Crestor) 10 mg PO HS [facility] Last Admin: 10/28/17 21:52 Dose: 10 mg Saccharomyces Boulardii (Florastor) 250 mg PO BID [facility] Last Admin: 10/29/17 11:00 Dose: 250 mg Vitamin A (Vitamin A & D Oint Ud Foilpak) 0.5 ea TOP Q1H PRN PRN Reason: Dry skin Last Admin: 10/28/17 09:21 Dose: 0.5 ea - Labs Labs: 10/29/17 06:30 10/29/17 06:32 PT 13.4 SECONDS (9.7-12.2) H 10/14/17 16:30 INR 1.2 10/14/17 16:30 APTT 28 SECONDS (21-34) 10/14/17 16:30 Attending/Attestation - Attestation I have personally seen and examined this patient.: Yes I have fully participated in the care of the patient.: Yes I have reviewed all pertinent clinical information, including history, physical exam and plan: Yes Notes (Text): 10/29/17 16:36 Hospitalist Progress Note Patient was seen and examined at 4:15 PM 10/29/17 ICU Bed 18 Exam, assessment and plan were discussed with resident. Also on exam: Respiratory: course breath sounds diffusely Assessments: 1). Hx Acute Respiratory Failure/ARDS/Cadiac Arrest/NSTEMI 2). Hx Abnormal Stress Test/AICD/CAD 3). Hx Atrial Flutter: stopped Eliquis 10/24/17 secondary significant drop in HgB. Heart Rate is elevated however can not restart Metoprolol due to the low blood pressure. 4). 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 Leukocytosis: still elevated. Blood Culture 10/22/17 is finalized as negative. Sputum culture 10/14/17 is negative. Stool cultures 10/20/17 are negative. Blood Culture 10/24/17 showed Reny glabrata. Right Arm Midline Tip 10/06/17 cutlure is negative. Cefepime (10/12/17 through 10/24/17), Aztreonam ( through 10/22/17)), Diflucan (10/14/17 through 10/26/17). Currently on Meropenem 500 mg IV Q8H (10/28/17), Micofungin 100 mg IV Q24H (10/27/17)Flagyl ( 10/16/17). F/U Midline Tip Culture 6). Hx Pneumonia 7). Hx HTN: Metoprolol was placed on hold secondary to the Hypotension. Continue Midodrine. 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 Hx CKD on HD --. Family would like to continue HD through current Permacath and declined surgical intervention to change catheter as recommended by Vascular Surgery 9). Hx DM: Levemir increased (by 10 Units SC AM and 10 Units SC PM: 20 units total) to 35 Units SC AM and PM as the patient required a total of 40 units on ISS from 8 AM 10/28/17 through 8 AM 10/29/17. Half of this was added to the Levemir. 10). Hx HLD 11). Hx Anemia: Eliquis stopped 10/24/17 and was transfused 2 units PRBCs. CBC morning 10/25/17 dropped from 11.2 post trasfusion 10/24/17 to 10.2 morning . Stool Occult is Positive and GI Dr. Dsouza was reconsulted however no further workup recommended in light of patient current status. 12). Hx DVT 13). Hx UTI: Yeast on culture 10/24/17. He is currently on Micofungin 100 mg IV Q24H. He may be colonized with this. 14). Hx Alzheimer's Dimentia 15). Hx Sacral Ulcer: currently on MediHoney daily 16). Hx Right Heal Ulcer: improved on exam and area of necrosis is decreased since my last exam 10/02/17. Pravolon boots 17). Hx Elevated LFTs 18). Diarrhea: on Rectal Seal and producing dark brown/black stools that are watery. Stool Studies 10/20/17 are negative 19). Hx Hyponatremia: stabalized 20). Hx PEG Tube: Vital 1.5 at 50 ml/hour 21). Hx Hypocalcemia: Calcitriol 22). Prophylactic Measures: Vitamin C, Dulcolax PRN, Pepcid, MVI, Zofran PRN, Florastor Spoke with at length with patient's Nephew Patrick and with whom Family conference was held with Palliative Care Nurse Loni and [place] Turner Nehal on 10/25/17. Explained the multiple chronic issues and that I did not believe that patient would show significant improvement in light of the Anemia, Heart Failure, Renal Failure. decided on DNR/DNI and comfort care. POLST is in chart. Translator Deaf Demetria Angel informed me 10/24/17 that patient will have new Medicaid Insurance by 10/28/17 that will be accepted by [facility] and hopefully he will be able to obtain a spot there. Unfortunately this insurance, I was informed, is not accepted by [facility]. Cullen Barth D.O.
[2017-10-29] MEDS: Meropenem 500 MG in Sodium Chloride 0.9% 100 ML IVPB SCH ×3 (05:30→22:10)
[2017-10-29 06:51] LABS: BASO # 0.1 K/uL (0.0-0.2); BASO % 0.3 % (0.0-2.0); EOS # 0.1 K/uL (0.0-0.7); EOS % 0.4 % (0.0-4.0); HEMATOCRIT 27.5 % (35.0-51.0); LYMPH # 1.9 K/uL (1.0-4.3); LYMPH % 8.2 % (20.0-40.0); MEAN CELL VOLUME 92.4 fL (80.0-94.0); MEAN CORPUSCULAR HEMOGLOBIN 29.4 pg (27.0-31.0); MEAN CORPUSCULAR HGB CONC 31.8 g/dL (33.0-37.0); MEAN PLATELET VOLUME 8.9 fL (7.2-11.7); MONO # 1.3 K/uL (0.0-0.8); MONO % 5.3 % (0.0-10.0); NRBC % 1.1 % (0.0-2.0); PLATELET COUNT 318 K/uL (130-400); RED CELL DISTRIBUTION WIDTH 24.9 % (11.5-14.5); WHITE BLOOD COUNT 23.5 K/uL (4.8-10.8)
[2017-10-29 07:09] LABS: ALB/GLOB RATIO 0.6 (1.0-2.1); BILIRUBIN,TOTAL 0.4 mg/dL (0.2-1.3); CALCIUM 7.3 mg/dl (8.6-10.4); MAGNESIUM 1.9 mg/dL (1.6-2.3); POTASSIUM 3.8 mmol/L (3.6-5.2); TOTAL PROTEIN 6.4 g/dL (6.3-8.3)
[2017-10-29 08:30] LABS: EOSINOPHIL 1 % (0-4); NEUTROPHIL 80 % (50-75); NUCLEATED RED BLOOD CELL 2 % (0-0); TOTAL CELLS COUNTED 100
--- NOTE | 2017-10-29 09:32 | CP.PCM.PN ---
Subjective - Date & Time of Evaluation Date of Evaluation: 10/29/17 Time of Evaluation: 09:29 - Subjective Subjective: appears same on trach collar, has AF with RVR- 130s s/p dialysis 10/28 cannot obtain ROS Objective - Vital Signs/Intake and Output Vital Signs (last 24 hours): Temp Pulse Resp BP Pulse Ox 98.7 F 125 H 42 H 112/41 L 100 10/29/17 08:00 10/29/17 08:21 10/29/17 08:21 10/29/17 08:21 10/29/17 08:21 Intake and Output: 10/29/17 10/29/17 06:59 18:59 Intake Total 1240 Output Total 250 Balance 990 - Medications Medications: Current Medications Ascorbic Acid (Vitamin C 500 Mg Tab) 500 mg PEG DAILY [facility] Last Admin: 10/28/17 09:20 Dose: 500 mg Aspirin (Aspirin Chewable) 81 mg PO DAILY [facility] Last Admin: 10/28/17 09:20 Dose: 81 mg Calcitriol (Rocaltrol) 0.25 mcg PEG DAILY [facility] Last Admin: 10/28/17 09:20 Dose: 0.25 mcg Epoetin [place] (Procrit) 10,000 unit IV MWF [facility] Last Admin: 10/28/17 12:09 Dose: 10,000 unit Micafungin Sodium 100 mg/ (Sodium Chloride) 100 mls @ 100 mls/hr IV Q24H [facility] Last Admin: 10/28/17 17:38 Dose: 100 mls/hr Meropenem 500 mg/ Sodium (Chloride) 100 mls @ 100 mls/hr IVPB Q8 [facility] Last Admin: 10/29/17 05:30 Dose: 100 mls/hr Insulin Aspart (Novolog) 0 unit SC Q6 [facility] PRN Reason: Protocol Last Admin: 10/29/17 05:31 Dose: 4 unit Insulin Detemir (Levemir) 25 unit SC Q12 [facility] Last Admin: 10/28/17 21:52 Dose: 25 unit Ipratropium [place] (Atrovent) 0.5 mg IH RQ6 [facility] Last Admin: 10/29/17 07:22 Dose: 0.5 mg Loperamide HCl (Imodium) 1 mg PO Q4H PRN PRN Reason: Diarrhea Last Admin: 10/26/17 09:00 Dose: 1 mg Metoprolol Tartrate (Lopressor) 25 mg PEG BIDBS [facility] Last Admin: 10/25/17 09:58 Dose: Not Given Metronidazole (Flagyl) 500 mg GT Q8 [facility] Last Admin: 10/29/17 05:30 Dose: 500 mg Midodrine (Proamatine) 10 mg PO TID [facility] Last Admin: 10/28/17 17:38 Dose: 10 mg Multivitamins/Vitamin C (Multi-Delyn Liquid) 5 ml PEG DAILY [facility] Last Admin: 10/28/17 09:21 Dose: 5 ml Ondansetron HCl (Zofran Inj) 4 mg IVP Q8H PRN PRN Reason: Nausea/Vomiting Pantoprazole Sodium (Protonix Inj) 40 mg IVP DAILY [facility] Last Admin: 10/28/17 09:21 Dose: 40 mg Rosuvastatin Calcium (Crestor) 10 mg PO HS [facility] Last Admin: 10/28/17 21:52 Dose: 10 mg Saccharomyces Boulardii (Florastor) 250 mg PO BID [facility] Last Admin: 10/28/17 17:38 Dose: 250 mg Vitamin A (Vitamin A & D Oint Ud Foilpak) 0.5 ea TOP Q1H PRN PRN Reason: Dry skin Last Admin: 10/28/17 09:21 Dose: 0.5 ea - Labs Labs: 10/29/17 06:30 10/29/17 06:32 PT 13.4 SECONDS (9.7-12.2) H 10/14/17 16:30 INR 1.2 10/14/17 16:30 APTT 28 SECONDS (21-34) 10/14/17 16:30 - Constitutional Appears: In Acute Distress, Chronically Ill - Head Exam Head Exam: ATRAUMATIC, NORMAL INSPECTION - Neck Exam Neck Exam: Normal Inspection. absent: Tenderness - Respiratory Exam Respiratory Exam: Rhonchi, Respiratory Distress - Cardiovascular Exam Cardiovascular Exam: Tachycardia, Irregular Rhythm - GI/Abdominal Exam GI & Abdominal Exam: Soft. absent: Tenderness - Extremities Exam Extremities Exam: Normal Inspection. absent: Tenderness - Neurological Exam Neurological Exam: Altered, Motor Sensory Deficit - Skin Skin Exam: Dry, Warm Assessment and Plan (1) Acute on chronic renal failure Status: Resolved (2) CAD (coronary artery disease) Status: Chronic (3) CHF exacerbation Status: Chronic (4) Type 2 diabetes mellitus with diabetic nephropathy Status: Acute (5) Cardiorenal disease Status: Acute (6) ESRD (end stage renal disease) Status: Acute (7) Sacral decubitus ulcer Status: Acute - Assessment and Plan (Free Text) Plan: dialysis MWF supportive measures monitor SVT
[2017-10-29] MEDS: Multiple Vitamins Oral Solution PEG SCH (11:00)
[2017-10-29] MEDS: Saccharomyces Boulardi 250 mg Cap PO SCH ×2 (11:00→17:21)
[2017-10-29] MEDS: Insulin Detemir 100 units/ml Vial (Levemir) SC SCH ×2 (11:00→22:09)
[2017-10-29] MEDS: Loperamide Hydrochloride 1 mg/5 ml Cup PO PRN (11:03)
--- NOTE | 2017-10-29 12:58 | CP.PCM.PN ---
Subjective - Date & Time of Evaluation Date of Evaluation: 10/29/17 Time of Evaluation: 10:00 - Subjective Subjective: Podiatry Progress Note - Dr. Lundberg 77 yo patient seen at bedside today for f/u of chronic right heel ulceration. Seen resting in bed with offloading boots in place. HPI unable to be obtained from patient. Patient is non-responsive but appears to be responding to verbal commands by nodding his head. Objective - Vital Signs/Intake and Output Vital Signs (last 24 hours): Temp Pulse Resp BP Pulse Ox 98.7 F 125 H 42 H 112/41 L 100 10/29/17 08:00 10/29/17 08:21 10/29/17 08:21 10/29/17 08:21 10/29/17 08:21 Intake and Output: 10/29/17 10/29/17 06:59 18:59 Intake Total 1240 Output Total 250 Balance 990 - Medications Medications: Current Medications Ascorbic Acid (Vitamin C 500 Mg Tab) 500 mg PEG DAILY [facility] Last Admin: 10/29/17 11:00 Dose: 500 mg Aspirin (Aspirin Chewable) 81 mg PO DAILY [facility] Last Admin: 10/29/17 11:00 Dose: 81 mg Calcitriol (Rocaltrol) 0.25 mcg PEG DAILY [facility] Last Admin: 10/28/17 09:20 Dose: 0.25 mcg Epoetin [place] (Procrit) 10,000 unit IV MWF [facility] Last Admin: 10/28/17 12:09 Dose: 10,000 unit Micafungin Sodium 100 mg/ (Sodium Chloride) 100 mls @ 100 mls/hr IV Q24H [facility] Last Admin: 10/28/17 17:38 Dose: 100 mls/hr Meropenem 500 mg/ Sodium (Chloride) 100 mls @ 100 mls/hr IVPB Q8 [facility] Last Admin: 10/29/17 05:30 Dose: 100 mls/hr Insulin Aspart (Novolog) 0 unit SC Q6 [facility] PRN Reason: Protocol Last Admin: 10/29/17 05:31 Dose: 4 unit Insulin Detemir (Levemir) 25 unit SC Q12 [facility] Last Admin: 10/29/17 11:00 Dose: 25 unit Ipratropium [place] (Atrovent) 0.5 mg IH RQ6 [facility] Last Admin: 10/29/17 07:22 Dose: 0.5 mg Loperamide HCl (Imodium) 1 mg PO Q4H PRN PRN Reason: Diarrhea Last Admin: 10/29/17 11:03 Dose: 1 mg Metoprolol Tartrate (Lopressor) 25 mg PEG BIDBS [facility] Last Admin: 10/25/17 09:58 Dose: Not Given Metronidazole (Flagyl) 500 mg GT Q8 [facility] Last Admin: 10/29/17 05:30 Dose: 500 mg Midodrine (Proamatine) 10 mg PO TID [facility] Last Admin: 10/29/17 11:00 Dose: 10 mg Multivitamins/Vitamin C (Multi-Delyn Liquid) 5 ml PEG DAILY [facility] Last Admin: 10/29/17 11:00 Dose: 5 ml Ondansetron HCl (Zofran Inj) 4 mg IVP Q8H PRN PRN Reason: Nausea/Vomiting Pantoprazole Sodium (Protonix Inj) 40 mg IVP DAILY [facility] Last Admin: 10/29/17 11:00 Dose: 40 mg Rosuvastatin Calcium (Crestor) 10 mg PO HS [facility] Last Admin: 10/28/17 21:52 Dose: 10 mg Saccharomyces Boulardii (Florastor) 250 mg PO BID [facility] Last Admin: 10/29/17 11:00 Dose: 250 mg Vitamin A (Vitamin A & D Oint Ud Foilpak) 0.5 ea TOP Q1H PRN PRN Reason: Dry skin Last Admin: 10/28/17 09:21 Dose: 0.5 ea - Labs Labs: 10/29/17 06:30 10/29/17 06:32 PT 13.4 SECONDS (9.7-12.2) H 10/14/17 16:30 INR 1.2 10/14/17 16:30 APTT 28 SECONDS (21-34) 10/14/17 16:30 - Constitutional Appears: No Acute Distress - Extremities Exam Additional comments: BL lower ext exam: VASC- pedal pulses faintly palpable, [employer] >4 sec to all digits DERM- right heel appears to have necrotic eschar that is non-stagable, left heel is intact with no lesions, no opening or breaks in the skin, no active drainage, no clinical suspicion of active infection NEURO- pedal sensation grossly diminished ORTHO- slight tenderness to palpation of bilateral heels seen by withdrawal on palpation - Neurological Exam Neurological Exam: Awake Assessment and Plan - Assessment and Plan (Free Text) Assessment: 77 yo male patient seen and evaluated for right heel unstagable ulcer Plan: Patient seen and evaluated at bedside Plan discussed with Dr. Toño Purdy & Optifoam applied to right heel c/w offloading heel boots Podiatry will continue to monitor patient
[2017-10-29] MEDS ORDERED: Digoxin 500 mcg/2ml (0.5 mg/2ml) Inj IVP ONE (16:14)
[2017-10-29] MEDS: Micafungin 100 MG in Sodium Chloride 0.9% 100 ML IV SCH (19:30)
[2017-10-30] MEDS: (Novolog) Insulin Aspart, Recombinant 100 u/ml 10 ml vial SC SCH ×4 (00:42→18:50)
[2017-10-30] MEDS: Ipratropium 0.02% Inhal Soln (0.5 mg/2.5 ml) UD IH SCH ×4 (01:06→20:24)
[2017-10-30] MEDS: Meropenem 500 MG in Sodium Chloride 0.9% 100 ML IVPB SCH ×3 (05:36→21:00)
[2017-10-30 06:29] LABS: BASO # 0.1 K/uL (0.0-0.2); BASO % 0.2 % (0.0-2.0); EOS # 0.1 K/uL (0.0-0.7); EOS % 0.6 % (0.0-4.0); HEMATOCRIT 29.2 % (35.0-51.0); LYMPH # 2.2 K/uL (1.0-4.3); LYMPH % 9.9 % (20.0-40.0); MEAN CELL VOLUME 93.9 fL (80.0-94.0); MEAN CORPUSCULAR HEMOGLOBIN 29.2 pg (27.0-31.0); MEAN CORPUSCULAR HGB CONC 31.1 g/dL (33.0-37.0); MEAN PLATELET VOLUME 8.9 fL (7.2-11.7); MONO # 0.9 K/uL (0.0-0.8); MONO % 4.2 % (0.0-10.0); NRBC % 0.4 % (0.0-2.0); PLATELET COUNT 335 K/uL (130-400); RED CELL DISTRIBUTION WIDTH 27.3 % (11.5-14.5)
[2017-10-30 06:45] LABS: ALB/GLOB RATIO 0.7 (1.0-2.1); BILIRUBIN,TOTAL 0.4 mg/dL (0.2-1.3); CALCIUM 7.7 mg/dl (8.6-10.4); MAGNESIUM 2.1 mg/dL (1.6-2.3); TOTAL PROTEIN 6.6 g/dL (6.3-8.3)
[2017-10-30 08:27] LABS: NEUTROPHIL 86 % (50-75); TOTAL CELLS COUNTED 100
--- NOTE | 2017-10-30 09:25 | CP.PCM.PN ---
<Lacy Duran - Last Filed: 10/30/17 10:03> Subjective - Date & Time of Evaluation Date of Evaluation: 10/30/17 Time of Evaluation: 09:21 - Subjective Subjective: Medicine Progress Note Patient seen and examined. No acute events overnight. No change in clinical condition. Trach is in place, no secretions noted. ROS could not be obtained. Objective - Vital Signs/Intake and Output Vital Signs (last 24 hours): Temp Pulse Resp BP Pulse Ox 99.5 F 117 H 32 H 104/31 L 99 10/30/17 04:00 10/30/17 04:00 10/30/17 04:00 10/30/17 03:21 10/30/17 04:00 Intake and Output: 10/30/17 10/30/17 06:59 18:59 Intake Total 430 Balance 430 - Medications Medications: Current Medications Ascorbic Acid (Vitamin C 500 Mg Tab) 500 mg PEG DAILY [facility] Last Admin: 10/29/17 11:00 Dose: 500 mg Aspirin (Aspirin Chewable) 81 mg PO DAILY [facility] Last Admin: 10/29/17 11:00 Dose: 81 mg Calcitriol (Rocaltrol) 0.25 mcg PEG DAILY [facility] Last Admin: 10/29/17 16:06 Dose: Not Given Epoetin Asim (Procrit) 10,000 unit IV MWF [facility] Last Admin: 10/28/17 12:09 Dose: 10,000 unit Micafungin Sodium 100 mg/ (Sodium Chloride) 100 mls @ 100 mls/hr IV Q24H [facility] Last Admin: 10/29/17 19:30 Dose: 100 mls/hr Meropenem 500 mg/ Sodium (Chloride) 100 mls @ 100 mls/hr IVPB Q8 [facility] Last Admin: 10/30/17 05:36 Dose: 100 mls/hr Insulin Aspart (Novolog) 0 unit SC Q6 [facility] PRN Reason: Protocol Last Admin: 10/30/17 05:35 Dose: 3 unit Insulin Detemir (Levemir) 35 unit SC Q12 [facility] Last Admin: 10/29/17 22:09 Dose: 35 unit Ipratropium [place] (Atrovent) 0.5 mg IH RQ6 [facility] Last Admin: 10/30/17 07:28 Dose: 0.5 mg Loperamide HCl (Imodium) 1 mg PO Q4H PRN PRN Reason: Diarrhea Last Admin: 10/29/17 11:03 Dose: 1 mg Metoprolol Tartrate (Lopressor) 25 mg PEG BIDBS [facility] Last Admin: 10/25/17 09:58 Dose: Not Given Metronidazole (Flagyl) 500 mg GT Q8 [facility] Last Admin: 10/30/17 05:35 Dose: 500 mg Midodrine (Proamatine) 10 mg PO TID [facility] Last Admin: 10/29/17 17:21 Dose: 10 mg Multivitamins/Vitamin C (Multi-Delyn Liquid) 5 ml PEG DAILY [facility] Last Admin: 10/29/17 11:00 Dose: 5 ml Ondansetron HCl (Zofran Inj) 4 mg IVP Q8H PRN PRN Reason: Nausea/Vomiting Pantoprazole Sodium (Protonix Inj) 40 mg IVP DAILY [facility] Last Admin: 10/29/17 11:00 Dose: 40 mg Rosuvastatin Calcium (Crestor) 10 mg PO HS [facility] Last Admin: 10/29/17 22:09 Dose: 10 mg Saccharomyces Boulardii (Florastor) 250 mg PO BID [facility] Last Admin: 10/29/17 17:21 Dose: 250 mg Vitamin A (Vitamin A & D Oint Ud Foilpak) 0.5 ea TOP Q1H PRN PRN Reason: Dry skin Last Admin: 10/28/17 09:21 Dose: 0.5 ea - Labs Labs: 10/30/17 06:16 10/30/17 06:17 PT 13.4 SECONDS (9.7-12.2) H 10/14/17 16:30 INR 1.2 10/14/17 16:30 APTT 28 SECONDS (21-34) 10/14/17 16:30 - Constitutional Appears: No Acute Distress, Chronically Ill - Head Exam Head Exam: ATRAUMATIC, NORMOCEPHALIC - ENT Exam ENT Exam: Mucous Membranes Dry Additional comments: Trach in place, no secretions - Respiratory Exam Respiratory Exam: Decreased Breath Sounds, Clear to Ausculation Bilateral - Cardiovascular Exam Cardiovascular Exam: Tachycardia, REGULAR RHYTHM, +S1, +S2. absent: Irregular Rhythm - GI/Abdominal Exam GI & Abdominal Exam: Soft Additional comments: PEG in place - Rectal Exam Rectal Exam: absent: Bloody Stool Additional comments: rectal tube in place - Extremities Exam Extremities Exam: Normal Inspection. absent: Pedal Edema - Neurological Exam Neurological Exam: Awake. absent: Oriented x3 - Skin Skin Exam: Dry, Warm Assessment and Plan - Assessment and Plan (Free Text) Assessment: 77M with ARDS s/p cardiac arrest, with pulmonary edema and NSTEMI * Patient with tracheostomy tube in place * Ipratropium 0.02% (atrovent) 0.5mg IH RQ6H * 10/24 CXR: questionable interval atelectasis or infiltrate in medial right base * 10/23 mid bibasilar atelectasis. questionable small left-sided effusion * CXR left lobe atelectasis v pna * 10/26 right midline removed, tip of midline sent for culture 10/26, new midline placed on left arm 10/26 * 10/[address] Lawrence: fungal infection in blood, lines should be changed. * 10/[address] Lawrence: fungal infection in blood, lines should be changed. * reach out to Mrs. Wolf, if family does want patient on dialysis: dialysis needs to be changed * f/u echo to rule out vegetations * 10/28: Family wants patient to receive dialysis; consulted surgery for permacath replacement. * Surgery consulted, Dr. Forbes, help appreciated * Patient received dialysis today; developed sinus tachycardia during; continue to monitor on telemetry. * ECHO: LV function markedly reduced, diffuse hypokinesis; septum is akinetic; LV EF 20%; Trace AR. * Continue mycamine 100mg POQD, merrem 500 POQD, flagy 500mg GT Q8 Constipation, resolved * Dulcolax 10mg [place] Once PRN 10/21, patient had a dark brown BM yesterday, none today per nursing staff * Patient is having diarrhea in the Flexseal. Cultures were taken, currently negative * GI Dr. Wills consulted: does not feel that it would be in the best interest of the patient at this time to do any invasive procedure or examination. Diarrhea * Rectal tube in place, stool normal in color, soft, non-bloody * Continue to monitor Hypotensive * Metoprolol on hold due to low BP Leukocytosis * Remains elevated despite treatments * current cultures negative (blood, stool and wound) * 10/14 urine culture: yeast * 10/14 blood culture is positive for yeast- repeat on 10/28 negative * stool culture from rectoseal negative * Saccharomyces boulardi (florastor) 250mg PO BID * Blood cx x1 from 10/24: positive for Reny Glabrata * Second blood cx showed no growth * As per ID, suggested replacing dialysis lines due to fungal infection * 10/26: catheter tip cx: no growth * Continue Meropenem 500mg IV q8h (started on 10/28) * Flagyl 500mg GT 88h (started on 10/16) * Micafungin 100mg IV q24h (started on 10/27) Abnormal Stress test, history of AICD, hx CAD * ASA 81mg POQD * Rosuvastatin [id number] POQHS Atrial Flutter * Given Digoxin IV one dose yesterday for tachycardia * Cardiology Consult (Dr. Cortés) * Aspirin 81mg PO daily * Eliquis held d/t Hgb 6.6 10/24 Low hemoglobin * Hgb stable * Epoeitin asim [id number] u IV M, W, F * 10/24: Eliquis held d/t Hgb 6.6; 2uPRBC administered after dialysis * Hgb 11.2 after 2uPRBC Hypocalcemia * Calcitrol 0.25 mcg PEG daily UTI, yeast positive * 10/14 urine positive for yeast * Completed treatment. Discontinued Diflucan 100mg/50cc NS @ 55cc/hr QD Unstageable Sacral Ulcer, Left Ear Auriclular ulcer, Right Heal Ulcer * Continue to monitor * Podiatry consulted- help appreciated HTN, medications held until blood pressure is higher * Midodrine (proamatine) * Metoprolol 25mg PEG BID BS DM * Levemir 25 units SC Q12 * ISS * Glucose accuchecks CKD with Dialysis * Dialysis MWF via permacath * During dialysis, patient developed sinus tachycardia. continue to monitor on telemetry Prophylaxis * Pepcid 20mg POQD * Zofran 4mg IVP Q8H PRN Diet: tube feeds: Vital 1.2 initial rate 20cc/hr with goal rate 70cc/hr Patient is at goal rate Social Work Patient's new insurance does not accept LTAC. New insurance started October 28 Currently waiting for [facility] to accept the patient when new insurance starts 10/28/17 merchandise worker to provide letter to have daughter in [facility] get a visa to come to the [place] to see her father. Comfort measures in place. POLST in chart, signed DNR as of 1899 on 10/25/1710/25 Patient was made DNR by of Patient Disposition: 10/28 reached out to Mrs. Wolf, if family does want patient on dialysis: dialysis needs to be changed, if patient's family wants patient on dialysis, reached out to surgery team. As of 10/28, surgery was consulted to change permacath for dialysis. <Cullen Barth - Last Filed: 10/30/17 10:56> Objective - Vital Signs/Intake and Output Vital Signs (last 24 hours): Temp Pulse Resp BP Pulse Ox 99.5 F 127 H 32 H 103/40 L 97 10/30/17 04:00 10/30/17 10:00 10/30/17 10:00 10/30/17 09:22 10/30/17 10:00 Intake and Output: 10/30/17 10/30/17 06:59 18:59 Intake Total 430 Balance 430 - Medications Medications: Current Medications Ascorbic Acid (Vitamin C 500 Mg Tab) 500 mg PEG DAILY [facility] Last Admin: 10/30/17 09:54 Dose: 500 mg Aspirin (Aspirin Chewable) 81 mg PO DAILY [facility] Last Admin: 10/29/17 11:00 Dose: 81 mg Calcitriol (Rocaltrol) 0.25 mcg PEG DAILY [facility] Last Admin: 10/29/17 16:06 Dose: Not Given Epoetin [place] (Procrit) 10,000 unit IV MWF [facility] Last Admin: 10/28/17 12:09 Dose: 10,000 unit Micafungin Sodium 100 mg/ (Sodium Chloride) 100 mls @ 100 mls/hr IV Q24H [facility] Last Admin: 10/29/17 19:30 Dose: 100 mls/hr Meropenem 500 mg/ Sodium (Chloride) 100 mls @ 100 mls/hr IVPB Q8 [facility] Last Admin: 10/30/17 05:36 Dose: 100 mls/hr Insulin Aspart (Novolog) 0 unit SC Q6 [facility] PRN Reason: Protocol Last Admin: 10/30/17 05:35 Dose: 3 unit Insulin Detemir (Levemir) 35 unit SC Q12 [facility] Last Admin: 10/30/17 09:56 Dose: 35 unit Ipratropium [place] (Atrovent) 0.5 mg IH RQ6 [facility] Last Admin: 10/30/17 07:28 Dose: 0.5 mg Loperamide HCl (Imodium) 1 mg PO Q4H PRN PRN Reason: Diarrhea Last Admin: 10/30/17 09:54 Dose: 1 mg Metoprolol Tartrate (Lopressor) 25 mg PEG BIDBS [facility] Last Admin: 10/25/17 09:58 Dose: Not Given Metronidazole (Flagyl) 500 mg GT Q8 [facility] Last Admin: 10/30/17 05:35 Dose: 500 mg Midodrine (Proamatine) 10 mg PO TID [facility] Last Admin: 10/30/17 09:54 Dose: 10 mg Multivitamins/Vitamin C (Multi-Delyn Liquid) 5 ml PEG DAILY [facility] Last Admin: 10/30/17 09:54 Dose: 5 ml Ondansetron HCl (Zofran Inj) 4 mg IVP Q8H PRN PRN Reason: Nausea/Vomiting Pantoprazole Sodium (Protonix Inj) 40 mg IVP DAILY [facility] Last Admin: 10/30/17 09:54 Dose: 40 mg Rosuvastatin Calcium (Crestor) 10 mg PO HS [facility] Last Admin: 10/29/17 22:09 Dose: 10 mg Saccharomyces Boulardii (Florastor) 250 mg PO BID [facility] Last Admin: 10/30/17 09:54 Dose: 250 mg Vitamin A (Vitamin A & D Oint Ud Foilpak) 0.5 ea TOP Q1H PRN PRN Reason: Dry skin Last Admin: 10/28/17 09:21 Dose: 0.5 ea - Labs Labs: 10/30/17 06:16 10/30/17 06:17 PT 13.4 SECONDS (9.7-12.2) H 10/14/17 16:30 INR 1.2 10/14/17 16:30 APTT 28 SECONDS (21-34) 10/14/17 16:30 Attending/Attestation - Attestation I have personally seen and examined this patient.: Yes I have fully participated in the care of the patient.: Yes I have reviewed all pertinent clinical information, including history, physical exam and plan: Yes Notes (Text): 10/30/17 10:46 Hospitalist Progress Note Patient was seen and examined at 10:45 AM 10/30/17 ICU Bed 18 Exam, assessment and plan were discussed with resident. Also on exam: Respiratory: course breath sounds diffusely Skin: Right Heal Ulcer with central area that is non-stageable, Sacral Ulcer that needs debridement. Assessments: 1). Hx Acute Respiratory Failure/ARDS/Cadiac Arrest/NSTEMI 2). Hx Abnormal Stress Test/AICD/CAD 3). Hx Atrial Flutter: stopped Eliquis 10/24/17 secondary significant drop in HgB. Heart Rate is elevated however can not restart Metoprolol due to the low blood pressure. 4). 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 Leukocytosis: still elevated. Blood Culture 10/22/17 is finalized as negative. Sputum culture 10/14/17 is negative. Stool cultures 10/20/17 are negative. Blood Culture 10/24/17 showed Reny glabrata. Right Arm Midline Tip 10/06/17 cutlure is negative. Midline Tip Culture 10/26/17 is negative. Blood Cultures 10/28/17 are negative to date. Cefepime (10/12/17 through 10/24/17), Aztreonam ( 10/13/17 through 10/22/17)), Diflucan (10/14/17 through 10/26/17). Currently on Meropenem 500 mg IV Q8H (10/28/17), Micofungin 100 mg IV Q24H (10/27/17)Flagyl ( 10/16/17). 6). Hx Pneumonia 7). Hx HTN: Metoprolol was placed on hold secondary to the Hypotension. Continue Midodrine. Lisinopril was discontinued on 10/14/17 at the time of [employer]ANT OPERATOR for Hypotension 8). Hx CKD on HD . Family would like to continue HD through current Permacath and declined surgical intervention to change catheter (due to the Blood Culture 10/24/17 being positive for Reny glabrata) as recommended by Vascular Surgery and Infectious Disease. 9). Hx DM: Levemir increased (by 10 Units SC AM and 10 Units SC PM: 20 units total) to 35 Units SC AM and PM as the patient required a total of 40 units on ISS from 8 AM 10/28/17 through 8 AM 10/29/17. Half of this was added to the Levemir. Please readjust Levemir if needed on 10/31/17. 10). Hx HLD 11). Hx Anemia: Tutu stopped 10/24/17 and was transfused 2 units PRBCs. CBC morning 10/25/17 dropped from 11.2 post trasfusion 10/24/17 to 10.2 morning . Stool Occult is Positive and GI Dr. Dsouza was reconsulted however no further workup recommended in light of patient current status. 12). Hx DVT 13). Hx UTI: Yeast on culture 10/24/17. He is currently on Micofungin 100 mg IV Q24H. He may be colonized with this. 14). Hx Alzheimer's Dimentia 15). Hx Sacral Ulcer: currently on MediHoney daily, family has declined further debridement by surgery 16). Hx Right Heal Ulcer: improved on exam and area of necrosis/unstageable area is decreased. Santyl and Optifoam daily. Pravolon boots 17). Hx Elevated LFTs 18). Diarrhea: on Rectal Seal and producing dark brown/black stools that are watery. Stool Studies 10/20/17 are negative 19). Hx Hyponatremia: stabalized 20). Hx PEG Tube: Vital 1.5 at 50 ml/hour 21). Hx Hypocalcemia: Calcitriol 22). Prophylactic Measures: Vitamin C, Dulcolax PRN, Pepcid, MVI, Zofran PRN, Florastor Spoke with at length with patient's Nephew Patrick and with whom Family conference was held with Palliative Care Nurse Loni and Sap Security Architect Nehal on 10/25/17. Explained the multiple chronic issues and that I did not believe that patient would show significant improvement in light of the Anemia, Heart Failure, Renal Failure. decided on DNR/DNI and comfort care. POLST is in chart. Spinner Iron Demetria Angel informed me 10/24/17 that patient will have new Medicaid Insurance by 10/28/17 that will be accepted by [facility] and hopefully he will be able to obtain a spot there. Unfortunately this insurance is not accepted by [facility]. Cullen Barth D.O.
[2017-10-30] MEDS: Saccharomyces Boulardi 250 mg Cap PO SCH ×2 (09:54→18:50)
[2017-10-30] MEDS: Loperamide Hydrochloride 1 mg/5 ml Cup PO PRN (09:54)
[2017-10-30] MEDS: Multiple Vitamins Oral Solution PEG SCH (09:54)
[2017-10-30] MEDS: Insulin Detemir 100 units/ml Vial (Levemir) SC SCH ×2 (09:56→22:51)
[2017-10-30] MEDS: Micafungin 100 MG in Sodium Chloride 0.9% 100 ML IV SCH (18:50)
--- NOTE | 2017-10-30 21:02 | CP.PCM.PN ---
Subjective - Date & Time of Evaluation Date of Evaluation: 10/30/17 Time of Evaluation: 09:45 - Subjective Subjective: Patient seen and evaluated On Mechanical ventilation No improvement in clinical status Poor prognosis Patient now DNR Objective - Vital Signs/Intake and Output Vital Signs (last 24 hours): Temp Pulse Resp BP Pulse Ox 99.2 F 130 H 30 H 128/49 L 100 10/30/17 16:00 10/30/17 20:00 10/30/17 20:00 10/30/17 19:06 10/30/17 20:00 Intake and Output: 10/30/17 10/31/17 18:59 06:59 Intake Total 1660 Output Total 0 Balance 1660 - Medications Medications: Current Medications Ascorbic Acid (Vitamin C 500 Mg Tab) 500 mg PEG DAILY [facility] Last Admin: 10/30/17 09:54 Dose: 500 mg Aspirin (Aspirin Chewable) 81 mg PO DAILY [facility] Last Admin: 10/30/17 12:49 Dose: 81 mg Calcitriol (Rocaltrol) 0.25 mcg PEG DAILY [facility] Last Admin: 10/30/17 12:50 Dose: 0.25 mcg Epoetin [place] (Procrit) 10,000 unit IV MWF [facility] Last Admin: 10/28/17 12:09 Dose: 10,000 unit Micafungin Sodium 100 mg/ (Sodium Chloride) 100 mls @ 100 mls/hr IV Q24H [facility] Last Admin: 10/30/17 18:50 Dose: 100 mls/hr Meropenem 500 mg/ Sodium (Chloride) 100 mls @ 100 mls/hr IVPB Q8 [facility] Last Admin: 10/30/17 14:43 Dose: 100 mls/hr Insulin Aspart (Novolog) 0 unit SC Q6 [facility] PRN Reason: Protocol Last Admin: 10/30/17 18:50 Dose: 4 unit Insulin Detemir (Levemir) 35 unit SC Q12 [facility] Last Admin: 10/30/17 09:56 Dose: 35 unit Ipratropium [place] (Atrovent) 0.5 mg IH RQ6 [facility] Last Admin: 10/30/17 20:24 Dose: 0.5 mg Loperamide HCl (Imodium) 1 mg PO Q4H PRN PRN Reason: Diarrhea Last Admin: 10/30/17 09:54 Dose: 1 mg Metoprolol Tartrate (Lopressor) 25 mg PEG BIDBS [facility] Last Admin: 10/25/17 09:58 Dose: Not Given Metronidazole (Flagyl) 500 mg GT Q8 [facility] Last Admin: 10/30/17 14:43 Dose: 500 mg Midodrine (Proamatine) 10 mg PO TID [facility] Last Admin: 10/30/17 18:50 Dose: 10 mg Multivitamins/Vitamin C (Multi-Delyn Liquid) 5 ml PEG DAILY [facility] Last Admin: 10/30/17 09:54 Dose: 5 ml Ondansetron HCl (Zofran Inj) 4 mg IVP Q8H PRN PRN Reason: Nausea/Vomiting Pantoprazole Sodium (Protonix Inj) 40 mg IVP DAILY [facility] Last Admin: 10/30/17 09:54 Dose: 40 mg Rosuvastatin Calcium (Crestor) 10 mg PO HS [facility] Last Admin: 10/29/17 22:09 Dose: 10 mg Saccharomyces Boulardii (Florastor) 250 mg PO BID [facility] Last Admin: 10/30/17 18:50 Dose: 250 mg Vitamin A (Vitamin A & D Oint Ud Foilpak) 0.5 ea TOP Q1H PRN PRN Reason: Dry skin Last Admin: 10/28/17 09:21 Dose: 0.5 ea - Labs Labs: 10/30/17 06:16 10/30/17 06:17 PT 13.4 SECONDS (9.7-12.2) H 10/14/17 16:30 INR 1.2 10/14/17 16:30 APTT 28 SECONDS (21-34) 10/14/17 16:30
[2017-10-31] MEDS: (Novolog) Insulin Aspart, Recombinant 100 u/ml 10 ml vial SC SCH ×4 (00:53→18:14)
[2017-10-31] MEDS: Ipratropium 0.02% Inhal Soln (0.5 mg/2.5 ml) UD IH SCH ×4 (01:05→19:22)
[2017-10-31] MEDS: Meropenem 500 MG in Sodium Chloride 0.9% 100 ML IVPB SCH ×3 (05:00→21:29)
[2017-10-31 07:35] LABS: BASO % 0.1 % (0.0-2.0); EOS # 0.2 K/uL (0.0-0.7); LYMPH # 1.6 K/uL (1.0-4.3); MEAN CELL VOLUME 94.6 fL (80.0-94.0); MEAN CORPUSCULAR HEMOGLOBIN 29.6 pg (27.0-31.0); MEAN CORPUSCULAR HGB CONC 31.3 g/dL (33.0-37.0); MEAN PLATELET VOLUME 9.1 fL (7.2-11.7); MONO # 0.9 K/uL (0.0-0.8); MONO % 4.7 % (0.0-10.0); NRBC % 0.3 % (0.0-2.0); PLATELET COUNT 380 K/uL (130-400); RED CELL DISTRIBUTION WIDTH 27.5 % (11.5-14.5); WHITE BLOOD COUNT 19.8 K/uL (4.8-10.8)
[2017-10-31 08:41] LABS: NEUTROPHIL 89 % (50-75); TOTAL CELLS COUNTED 100
[2017-10-31] MEDS: Saccharomyces Boulardi 250 mg Cap PO SCH ×2 (10:00→17:45)
--- NOTE | 2017-10-31 10:38 | CP.PCM.PN ---
Subjective - Date & Time of Evaluation Date of Evaluation: 10/31/17 Time of Evaluation: 10:35 - Subjective Subjective: seen on dialysis remains very lethargic to UF 500ml only as BP low DNR/DNI status noted Objective - Vital Signs/Intake and Output Vital Signs (last 24 hours): Temp Pulse Resp BP Pulse Ox 98.6 F 138 H 36 H 121/43 L 100 10/31/17 09:40 10/31/17 10:14 10/31/17 10:14 10/31/17 10:18 10/31/17 10:18 Intake and Output: 10/31/17 10/31/17 06:59 18:59 Intake Total 1040 Output Total 250 Balance 790 - Medications Medications: Current Medications Ascorbic Acid (Vitamin C 500 Mg Tab) 500 mg PEG DAILY [facility] Last Admin: 10/30/17 09:54 Dose: 500 mg Aspirin (Aspirin Chewable) 81 mg PO DAILY [facility] Last Admin: 10/30/17 12:49 Dose: 81 mg Calcitriol (Rocaltrol) 0.25 mcg PEG DAILY [facility] Last Admin: 10/30/17 12:50 Dose: 0.25 mcg Epoetin [place] (Procrit) 10,000 unit IV MWF [facility] Last Admin: 10/28/17 12:09 Dose: 10,000 unit Micafungin Sodium 100 mg/ (Sodium Chloride) 100 mls @ 100 mls/hr IV Q24H [facility] Last Admin: 10/30/17 18:50 Dose: 100 mls/hr Meropenem 500 mg/ Sodium (Chloride) 100 mls @ 100 mls/hr IVPB Q8 [facility] Last Admin: 10/31/17 05:00 Dose: 100 mls/hr Insulin Aspart (Novolog) 0 unit SC Q6 [facility] PRN Reason: Protocol Last Admin: 10/31/17 06:09 Dose: 4 unit Insulin Detemir (Levemir) 35 unit SC Q12 [facility] Last Admin: 10/30/17 22:51 Dose: 35 unit Ipratropium [place] (Atrovent) 0.5 mg IH RQ6 [facility] Last Admin: 10/31/17 07:22 Dose: 0.5 mg Loperamide HCl (Imodium) 1 mg PO Q4H PRN PRN Reason: Diarrhea Last Admin: 10/30/17 09:54 Dose: 1 mg Metoprolol Tartrate (Lopressor) 25 mg PEG BIDBS [facility] Last Admin: 10/25/17 09:58 Dose: Not Given Metronidazole (Flagyl) 500 mg GT Q8 [facility] Last Admin: 10/31/17 05:42 Dose: 500 mg Midodrine (Proamatine) 10 mg PO TID [facility] Last Admin: 10/31/17 09:42 Dose: 10 mg Multivitamins/Vitamin C (Multi-Delyn Liquid) 5 ml PEG DAILY [facility] Last Admin: 10/30/17 09:54 Dose: 5 ml Ondansetron HCl (Zofran Inj) 4 mg IVP Q8H PRN PRN Reason: Nausea/Vomiting Pantoprazole Sodium (Protonix Inj) 40 mg IVP DAILY [facility] Last Admin: 10/30/17 09:54 Dose: 40 mg Rosuvastatin Calcium (Crestor) 10 mg PO HS [facility] Last Admin: 10/30/17 22:50 Dose: 10 mg Saccharomyces Boulardii (Florastor) 250 mg PO BID [facility] Last Admin: 10/30/17 18:50 Dose: 250 mg Vitamin A (Vitamin A & D Oint Ud Foilpak) 0.5 ea TOP Q1H PRN PRN Reason: Dry skin Last Admin: 10/28/17 09:21 Dose: 0.5 ea - Labs Labs: 10/31/17 07:19 10/30/17 06:17 PT 13.4 SECONDS (9.7-12.2) H 10/14/17 16:30 INR 1.2 10/14/17 16:30 APTT 28 SECONDS (21-34) 10/14/17 16:30 - Constitutional Appears: In Acute Distress, Chronically Ill - Head Exam Head Exam: ATRAUMATIC, NORMAL INSPECTION - Neck Exam Neck Exam: Normal Inspection. absent: Tenderness - Respiratory Exam Respiratory Exam: Rhonchi, Respiratory Distress - Cardiovascular Exam Cardiovascular Exam: Tachycardia, Irregular Rhythm - GI/Abdominal Exam GI & Abdominal Exam: Soft. absent: Tenderness - Extremities Exam Extremities Exam: Normal Inspection. absent: Tenderness - Neurological Exam Neurological Exam: Altered, Motor Sensory Deficit - Skin Skin Exam: Dry, Warm Assessment and Plan (1) Acute on chronic renal failure Status: Resolved (2) CAD (coronary artery disease) Status: Chronic (3) CHF exacerbation Status: Chronic (4) Type 2 diabetes mellitus with diabetic nephropathy Status: Acute (5) Cardiorenal disease Status: Acute (6) ESRD (end stage renal disease) Status: Acute (7) Sacral decubitus ulcer Status: Acute - Assessment and Plan (Free Text) Plan: Dialysis MWF as per family wishes comfort care plans noted
[2017-10-31] MEDS: Insulin Detemir 100 units/ml Vial (Levemir) SC SCH ×2 (10:41→21:29)
[2017-10-31 11:27] LABS: ALB/GLOB RATIO 0.7 (1.0-2.1); BILIRUBIN,TOTAL 0.4 mg/dL (0.2-1.3); CALCIUM 7.9 mg/dl (8.6-10.4); MAGNESIUM 2.2 mg/dL (1.6-2.3); PHOSPHOROUS 7.4 mg/dL (2.5-4.5); POTASSIUM 4.5 mmol/L (3.6-5.2); TOTAL PROTEIN 6.5 g/dL (6.3-8.3)
[2017-10-31] MEDS: Epoetin Alfa 10,000 unit/ml Dialysis IV SCH (11:58)
[2017-10-31] MEDS ORDERED: Metoprolol 1 mg/ml Inj IVP ONE (13:46)
[2017-10-31] MEDS: Multiple Vitamins Oral Solution PEG SCH (13:51)
--- NOTE | 2017-10-31 14:55 | CP.PCM.PN ---
Addendum entered and electronically signed by Tangela Sanchez DO 10/31/17 19:02: Patient seen at bedside with daughter and family members with some speaking Kazakh and others speaking Burkinan. It was explained to the daughter that came from [place] that the patient's prognosis is poor. Patient's current problem list and plan were explained to the daughter. Kazakh speaking family member states she feels that the patient is getting better. This resident acknowledged her observations but also stated that patient is likely not going to recover back to how he used to be (prior to the cardiac arrest). Family stated that they understood and had no more questions. Original Note: <Tangela Sanchez - Last Filed: 10/31/17 14:56> Subjective - Date & Time of Evaluation Date of Evaluation: 10/31/17 Time of Evaluation: 14:55 - Subjective Subjective: Progress Note for Dr. Lazar Patient seen and examined at bedside. unable to access full ROS due to clinical status. No acute events overnight Patient continues to have high blood pressure. Lopressor 5mg STat was ordered at time of visit with Dr. Lazar Objective - Vital Signs/Intake and Output Vital Signs (last 24 hours): Temp Pulse Resp BP Pulse Ox 98.7 F 138 H 36 H 128/52 L 99 10/31/17 12:00 10/31/17 10:14 10/31/17 10:14 10/31/17 12:48 10/31/17 12:18 Intake and Output: 10/31/17 10/31/17 06:59 18:59 Intake Total 1040 Output Total 250 Balance 790 - Medications Medications: Current Medications Ascorbic Acid (Vitamin C 500 Mg Tab) 500 mg PEG DAILY [facility] Last Admin: 10/31/17 13:51 Dose: 500 mg Aspirin (Aspirin Chewable) 81 mg PO DAILY [facility] Last Admin: 10/31/17 13:49 Dose: 81 mg Calcitriol (Rocaltrol) 0.25 mcg PEG DAILY [facility] Last Admin: 10/31/17 13:50 Dose: 0.25 mcg Epoetin Asim (Procrit) 10,000 unit IV MWF [facility] Last Admin: 10/31/17 11:58 Dose: 10,000 unit Micafungin Sodium 100 mg/ (Sodium Chloride) 100 mls @ 100 mls/hr IV Q24H [facility] Last Admin: 10/30/17 18:50 Dose: 100 mls/hr Meropenem 500 mg/ Sodium (Chloride) 100 mls @ 100 mls/hr IVPB Q8 [facility] Last Admin: 10/31/17 13:50 Dose: 100 mls/hr Insulin Aspart (Novolog) 0 unit SC Q6 [facility] PRN Reason: Protocol Last Admin: 10/31/17 12:16 Dose: 1 unit Insulin Detemir (Levemir) 35 unit SC Q12 [facility] Last Admin: 10/31/17 10:41 Dose: 35 unit Ipratropium [place] (Atrovent) 0.5 mg IH RQ6 [facility] Last Admin: 10/31/17 13:21 Dose: Not Given Loperamide HCl (Imodium) 1 mg PO Q4H PRN PRN Reason: Diarrhea Last Admin: 10/30/17 09:54 Dose: 1 mg Metoprolol Tartrate (Lopressor) 25 mg PEG BIDBS [facility] Last Admin: 10/25/17 09:58 Dose: Not Given Metronidazole (Flagyl) 500 mg GT Q8 [facility] Last Admin: 10/31/17 13:50 Dose: 500 mg Midodrine (Proamatine) 10 mg PO TID [facility] Last Admin: 10/31/17 13:50 Dose: 10 mg Multivitamins/Vitamin C (Multi-Delyn Liquid) 5 ml PEG DAILY [facility] Last Admin: 10/31/17 13:51 Dose: 5 ml Ondansetron HCl (Zofran Inj) 4 mg IVP Q8H PRN PRN Reason: Nausea/Vomiting Pantoprazole Sodium (Protonix Inj) 40 mg IVP DAILY [facility] Last Admin: 10/31/17 13:50 Dose: 40 mg Rosuvastatin Calcium (Crestor) 10 mg PO HS [facility] Last Admin: 10/30/17 22:50 Dose: 10 mg Saccharomyces Boulardii (Florastor) 250 mg PO BID [facility] Last Admin: 10/31/17 10:00 Dose: Not Given Vitamin A (Vitamin A & D Oint Ud Foilpak) 0.5 ea TOP Q1H PRN PRN Reason: Dry skin Last Admin: 10/28/17 09:21 Dose: 0.5 ea - Labs Labs: 10/31/17 07:19 10/31/17 07:19 PT 13.4 SECONDS (9.7-12.2) H 10/14/17 16:30 INR 1.2 10/14/17 16:30 APTT 28 SECONDS (21-34) 10/14/17 16:30 - Constitutional Appears: Non-toxic - Head Exam Head Exam: NORMAL INSPECTION - Eye Exam Eye Exam: EOMI, Normal appearance - ENT Exam ENT Exam: Mucous Membranes Moist Additional comments: trach is in place. less secretions than last week - Neck Exam Neck Exam: Full ROM - Respiratory Exam Respiratory Exam: NORMAL BREATHING PATTERN. absent: Accessory Muscle Use - Cardiovascular Exam Cardiovascular Exam: Tachycardia, REGULAR RHYTHM, +S1, +S2 - GI/Abdominal Exam GI & Abdominal Exam: Soft. absent: Tenderness Additional comments: PEG tube in place - Rectal Exam Additional comments: rectoseal in place. green watery diarrhea in bag - Extremities Exam Extremities Exam: absent: Full ROM, Pedal Edema - Neurological Exam Neurological Exam: Awake Additional comments: patient moves his left upper extremity to itch his face, but does not follow command - Skin Skin Exam: Dry Assessment and Plan - Assessment and Plan (Free Text) Assessment: 77M with ARDS s/p cardiac arrest, with pulmonary edema and NSTEMI * Ipratropium 0.02% (atrovent) 0.5mg IH RQ6H * 10/24 CXR: questionable interval atelectasis or infiltrate in medial right base * 10/23 mid bibasilar atelectasis. questionable small left-sided effusion * CXR left lobe atelectasis v pna * 10/26 right midline removed, tip of midline sent for culture 10/26, new midline placed on left arm 10/26 * 10/[address] Lawrence: fungal infection in blood, lines should be changed. * 10/[address] Lawrence: fungal infection in blood, lines should be changed. * reach out to Mrs. Wolf, if family does want patient on dialysis: dialysis needs to be changed * f/u echo to rule out vegetations * 10/28: Family wants patient to receive dialysis; consulted surgery for permacath replacement. * Surgery consulted, Dr. Forbes * Patient received dialysis today; developed sinus tachycardia during; continue to monitor on telemetry. * 10/29 Digoxin 0.25 mg IV was given to patient for the sinus tachycardia. * ECHO: LV function markedly reduced, diffuse hypokinesis; septum is akinetic; LV EF 20%; Trace AR. * Continue mycamine 100mg POQD, merrem 500 POQD, flagy 500mg GT Q8 Constipation, resolved * Dulcolax 10mg KS Once PRN 10/21, patient had a dark brown BM yesterday, none today per nursing staff * Patient is having diarrhea in the Flexseal. Cultures were taken, currently negative * GI Dr. Wills consulted: does not feel that it would be in the best interest of the patient at this time to do any invasive procedure or examination. Diarrhea * One dose of immodium given overnight Hypotensive, resolving, stable * Metoprolol on hold HTN * 10/31 Lopressor 5mg once was given today for high blood pressure Leukocytosis * current cultures negative (blood, stool and wound) * 10/14 urine culture: yeast * 10/14 blood culture is positive for yeast * f/u stool culture from rectoseal from 10/23 * 10/26 WBC 25.5 * 10/27 WBC 17 * Saccharomyces boulardi (florastor) 250mg PO BID * Blood cx x1 from 10/24: positive for Reny Glabrata * Second blood cx showed no growth * As per ID, suggested replacing dialysis lines due to fungal infection * 10/26: catheter tip cx: no growth * Continue mycamine 100mg POQD, Flagyl 500mg GT Q8m Merem 500mg IV Q8 Abnormal Stress test, history of AICD, hx CAD * ASA 81mg POQD * Rosuvastatin [id number] POQHS Atrial Flutter, resolved * Cardiology Consult (Dr. Cortés) * Aspirin 81mg PO daily * c/w Eliquis 2.5mg PO bid * Eliquis held d/t Hgb 6.6 10/24 Low hemoglobin * Epoeitin asim [id number] u IV M, W, F * 10/24: Eliquis held d/t Hgb 6.6; 2uPRBC administered after dialysis * Hgb 11.2 after 2uPRBC Hypocalcemia * Calcitriol 0.25 mcg PEG daily UTI, yeast positive * 10/14 urine positive for yeast * Discontinued Diflucan 100mg/50cc NS @ 55cc/hr QD Unstageable Sacral Ulcer, Left Ear Auriclular ulcer, Right Heal Ulcer * Continue to monitor HTN, medications held until blood pressure is higher * Midodrine (proamatine) * Metoprolol 25mg PEG BID BS DM * Levemir 25 units SC Q12 * ISS * Glucose accuchecks CKD with Dialysis * Dialysis MWF via permacath * Patient received dialysis today, 10/28. * During dialysis, patient developed sinus tachycardia. continue to monitor on telemetry Prophylaxis * Pepcid 20mg POQD * Zofran 4mg IVP Q8H PRN Diet: tube feeds: Vital 1.2 initial rate 20cc/hr with goal rate 70cc/hr Patient is at goal rate Social Work Patient's new insurance does not accept LTAC. New insurance starts October [address] [facility] to accept the patient when new insurance starts 10/28/17 group social worker to provide letter to have daughter in [facility] get a visa to come to the [place] to see her father. Comfort measures in place. DIOGENES in chart, signed DNR as of 1899 on 10/25/1710/25 Patient was made DNR/DNI by of Patient Disposition: 10/28 reached out to Mrs. Wolf, if family does want patient on dialysis: dialysis needs to be changed, if patient's family wants patient on dialysis, reached out to surgery team. As of 10/28, surgery was consulted to change permacath for dialysis. Patient received dialsysis today. During dialysis, patient developed sinus tachycardia- continue monitoring on telemetry. 10/29 Patient's family wants dialysis but does not want surgery to change permacath for dialysis Patient discussed with DR. Nagi Sanchez, DO PGY1 <Mariangel Lazar V - Last Filed: 11/01/17 00:13> Objective - Vital Signs/Intake and Output Vital Signs (last 24 hours): Temp Pulse Resp BP Pulse Ox 98.5 F 116 H 33 H 129/30 L 98 10/31/17 20:00 10/31/17 20:00 10/31/17 20:00 10/31/17 19:00 10/31/17 20:00 Intake and Output: 10/31/17 11/01/17 18:59 06:59 Intake Total 870 100 Output Total 770 Balance 100 100 - Medications Medications: Current Medications Ascorbic Acid (Vitamin C 500 Mg Tab) 500 mg PEG DAILY [facility] Last Admin: 10/31/17 13:51 Dose: 500 mg Aspirin (Aspirin Chewable) 81 mg PO DAILY [facility] Last Admin: 10/31/17 13:49 Dose: 81 mg Calcitriol (Rocaltrol) 0.25 mcg PEG DAILY [facility] Last Admin: 10/31/17 13:50 Dose: 0.25 mcg Epoetin [place]im (Procrit) 10,000 unit IV MWF [facility] Last Admin: 10/31/17 11:58 Dose: 10,000 unit Micafungin Sodium 100 mg/ (Sodium Chloride) 100 mls @ 100 mls/hr IV Q24H [facility] Last Admin: 10/31/17 17:45 Dose: 100 mls/hr Meropenem 500 mg/ Sodium (Chloride) 100 mls @ 100 mls/hr IVPB Q8 [facility] Last Admin: 10/31/17 21:29 Dose: 100 mls/hr Insulin Aspart (Novolog) 0 unit SC Q6 [facility] PRN Reason: Protocol Last Admin: 10/31/17 18:14 Dose: 2 unit Insulin Detemir (Levemir) 35 unit SC Q12 [facility] Last Admin: 10/31/17 21:29 Dose: 35 unit Ipratropium [place] (Atrovent) 0.5 mg IH RQ6 [facility] Last Admin: 10/31/17 19:22 Dose: 0.5 mg Loperamide HCl (Imodium) 1 mg PO Q4H PRN PRN Reason: Diarrhea Last Admin: 10/30/17 09:54 Dose: 1 mg Metoprolol Tartrate (Lopressor) 25 mg PEG BIDBS [facility] Last Admin: 10/25/17 09:58 Dose: Not Given Metronidazole (Flagyl) 500 mg GT Q8 [facility] Last Admin: 10/31/17 21:29 Dose: 500 mg Midodrine (Proamatine) 10 mg PO TID [facility] Last Admin: 10/31/17 17:46 Dose: 10 mg Multivitamins/Vitamin C (Multi-Delyn Liquid) 5 ml PEG DAILY [facility] Last Admin: 10/31/17 13:51 Dose: 5 ml Ondansetron HCl (Zofran Inj) 4 mg IVP Q8H PRN PRN Reason: Nausea/Vomiting Pantoprazole Sodium (Protonix Inj) 40 mg IVP DAILY [facility] Last Admin: 10/31/17 13:50 Dose: 40 mg Rosuvastatin Calcium (Crestor) 10 mg PO HS [facility] Last Admin: 10/31/17 21:29 Dose: 10 mg Saccharomyces Boulardii (Florastor) 250 mg PO BID [facility] Last Admin: 10/31/17 17:45 Dose: Not Given Vitamin A (Vitamin A & D Oint Ud Foilpak) 0.5 ea TOP Q1H PRN PRN Reason: Dry skin Last Admin: 10/28/17 09:21 Dose: 0.5 ea - Labs Labs: 10/31/17 07:19 10/31/17 07:19 PT 13.4 SECONDS (9.7-12.2) H 10/14/17 16:30 INR 1.2 10/14/17 16:30 APTT 28 SECONDS (21-34) 10/14/17 16:30 Attending/Attestation - Attestation I have personally seen and examined this patient.: Yes I have fully participated in the care of the patient.: Yes I have reviewed all pertinent clinical information, including history, physical exam and plan: Yes Notes (Text): Patient seen, examined and case discussed with day-time resident. Patient seen this morning. Patient had dialysis this morning. Patient noted tachycardia HR: 130s and SBP: 130s. Ordered for Lopressor 5mg IVX1. Discussed with patient's nurse, patient has improvement in color in diarrhea no blood noted. Nursing working with wound care with sacral ulcer. Discussed with case management, will need to follow-up with [facility] to see if will take patient's new insurance. Resident had checked with the family on 10/29, they do not have the Permacath exchanged out given prior +blood culture. Patient's mid line switched to left upper extremity. Patient's daughter and other family members came into day to see father in the hospital. Resident updated family. Assessment/Plans 1). Hx Acute Respiratory Failure/ARDS/Cadiac Arrest/NSTEMI 2). Hx Abnormal Stress Test/AICD/CAD 3). Hx Atrial Flutter: stopped Eliquis 10/24/17 secondary significant drop in HgB. Heart Rate is elevated. Ordered for Lopressor 5mg iVX1. 4). 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 Leukocytosis: still elevated. * Blood Culture 10/22/17 is finalized as negative. * Sputum culture 10/14/17 is negative. * Stool cultures 10/20/17 are negative. 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 * Right Arm Midline Tip 10/06/17 culture is negative and removed. Midline Tip Culture 10/26/17 is negative. * Blood Cultures 10/28/17 are negative to date. * Iv ABx: Cefepime (10/12/17 through 10/24/17), Aztreonam (10/13/17 through )), Diflucan (10/14/17 through 10/26/17). Currently on Meropenem 500 mg IV Q8H (10/28/17), Micofungin 100 mg IV Q24H (10/27/17) Flagyl (10/16/17). 6). Hx Pneumonia * Currently on Meropenem 500 mg IV Q8H (10/28/17), Micofungin 100 mg IV Q24H () Flagyl (10/16/17). 7). Hx HTN: Metoprolol was placed on hold secondary to the Hypotension. Continue Midodrine. Lisinopril was discontinued on 10/14/17 at the time of [facility]PLAN[facility] ORCHID for Hypotension 8). Hx CKD on HD . * Family would like to continue HD through current Permacath and declined surgical intervention to change catheter (due to the Blood Culture 10/24/17 being positive for Reny glabrata) as recommended by Vascular Surgery and Infectious Disease. * Patient tolerated dialysis today 9). Hx DM: Levemir increased (by 10 Units SC AM and 10 Units SC PM: 20 units total) to 35 Units SC AM and PM as the patient required a total of 40 units on ISS from 8 AM 10/28/17 through 8 AM 10/29/17. Half of this was added to the Levemir. Will need to f/u sugars to adjust tomorrow. 10). Hx HLD 11). Hx Anemia: Eliquis stopped 10/24/17 and was transfused 2 units PRBCs. CBC morning 10/25/17 dropped from 11.2 post trasfusion 10/24/17 to 10.2 morning . Stool Occult is Positive and GI Dr. Dsouza was reconsulted however no further workup recommended in light of patient current status. 12). Hx DVT 13). Hx UTI: Yeast on culture 10/24/17. He is currently on Micofungin 100 mg IV Q24H. He may be colonized with this. 14). Hx Alzheimer's Dimentia 15). Hx Sacral Ulcer: currently on MediHoney daily, family has declined further debridement by surgery. Wound care on board 16). Hx Right Heal Ulcer: improved on exam and area of necrosis/unstageable area is decreased. Santyl and Optifoam daily. Pravolon boots 17). Hx Elevated LFTs 18). Diarrhea: on Rectal Seal and producing dark brown/black stools that are watery. Stool Studies 10/20/17 are negative 19). Hx Hyponatremia: stabalized 20). Hx PEG Tube: Vital 1.5 at 50 ml/hour 21). Hx Hypocalcemia: Calcitriol 22). Prophylactic Measures: Vitamin C, Dulcolax PRN, Pepcid, MVI, Zofran PRN, Florastor
--- NOTE | 2017-10-31 17:40 | CP.PCM.PN ---
Subjective - Date & Time of Evaluation Date of Evaluation: 10/31/17 Time of Evaluation: 10:00 - Subjective Subjective: the patient seen and examined during hemodialysis On trach collar in no respiratory distress On antibiotics Afebrile Objective - Vital Signs/Intake and Output Vital Signs (last 24 hours): Temp Pulse Resp BP Pulse Ox 98.7 F 117 H 31 H 125/40 L 97 10/31/17 12:00 10/31/17 15:00 10/31/17 15:00 10/31/17 15:00 10/31/17 15:00 Intake and Output: 10/31/17 10/31/17 06:59 18:59 Intake Total 1040 Output Total 250 Balance 790 - Medications Medications: Current Medications Ascorbic Acid (Vitamin C 500 Mg Tab) 500 mg PEG DAILY REPLACED BY [facility] Last Admin: 10/31/17 13:51 Dose: 500 mg Aspirin (Aspirin Chewable) 81 mg PO DAILY REPLACED BY [facility] Last Admin: 10/31/17 13:49 Dose: 81 mg Calcitriol (Rocaltrol) 0.25 mcg PEG DAILY REPLACED BY [facility] Last Admin: 10/31/17 13:50 Dose: 0.25 mcg Epoetin [place] (Procrit) 10,000 unit IV MWF REPLACED BY [facility] Last Admin: 10/31/17 11:58 Dose: 10,000 unit Micafungin Sodium 100 mg/ (Sodium Chloride) 100 mls @ 100 mls/hr IV Q24H REPLACED BY [facility] Last Admin: 10/30/17 18:50 Dose: 100 mls/hr Meropenem 500 mg/ Sodium (Chloride) 100 mls @ 100 mls/hr IVPB Q8 REPLACED BY [facility] Last Admin: 10/31/17 13:50 Dose: 100 mls/hr Insulin Aspart (Novolog) 0 unit SC Q6 LUIS FERNANDO PRN Reason: Protocol Last Admin: 10/31/17 12:16 Dose: 1 unit Insulin Detemir (Levemir) 35 unit SC Q12 REPLACED BY [facility] Last Admin: 10/31/17 10:41 Dose: 35 unit Ipratropium [place] (Atrovent) 0.5 mg IH RQ6 REPLACED BY [facility] Last Admin: 10/31/17 13:21 Dose: Not Given Loperamide HCl (Imodium) 1 mg PO Q4H PRN PRN Reason: Diarrhea Last Admin: 10/30/17 09:54 Dose: 1 mg Metoprolol Tartrate (Lopressor) 25 mg PEG BIDBS REPLACED BY [facility] Last Admin: 10/25/17 09:58 Dose: Not Given Metronidazole (Flagyl) 500 mg GT Q8 REPLACED BY [facility] Last Admin: 10/31/17 13:50 Dose: 500 mg Midodrine (Proamatine) 10 mg PO TID REPLACED BY [facility] Last Admin: 10/31/17 13:50 Dose: 10 mg Multivitamins/Vitamin C (Multi-Delyn Liquid) 5 ml PEG DAILY REPLACED BY [facility] Last Admin: 10/31/17 13:51 Dose: 5 ml Ondansetron HCl (Zofran Inj) 4 mg IVP Q8H PRN PRN Reason: Nausea/Vomiting Pantoprazole Sodium (Protonix Inj) 40 mg IVP DAILY REPLACED BY [facility] Last Admin: 10/31/17 13:50 Dose: 40 mg Rosuvastatin Calcium (Crestor) 10 mg PO HS REPLACED BY [facility] Last Admin: 10/30/17 22:50 Dose: 10 mg Saccharomyces Boulardii (Florastor) 250 mg PO BID REPLACED BY [facility] Last Admin: 10/31/17 10:00 Dose: Not Given Vitamin A (Vitamin A & D Oint Ud Foilpak) 0.5 ea TOP Q1H PRN PRN Reason: Dry skin Last Admin: 10/28/17 09:21 Dose: 0.5 ea - Labs Labs: 10/31/17 07:19 10/31/17 07:19 PT 13.4 SECONDS (9.7-12.2) H 10/14/17 16:30 INR 1.2 10/14/17 16:30 APTT 28 SECONDS (21-34) 10/14/17 16:30 - Head Exam Head Exam: ATRAUMATIC, NORMOCEPHALIC - ENT Exam ENT Exam: Mucous Membranes Moist - Neck Exam Neck Exam: Normal Inspection - Respiratory Exam Respiratory Exam: Decreased Breath Sounds - Cardiovascular Exam Cardiovascular Exam: REGULAR RHYTHM Assessment and Plan (1) Hypotension (arterial) Status: Acute (2) Pneumonia Status: Acute (3) Cardiac arrest Status: Acute (4) History of DVT (deep vein thrombosis) Status: Acute (5) CKD (chronic kidney disease) Status: Chronic (6) CHF (congestive heart failure) Status: Acute
[2017-10-31] MEDS: Micafungin 100 MG in Sodium Chloride 0.9% 100 ML IV SCH (17:45)
[2017-11-01] MEDS: (Novolog) Insulin Aspart, Recombinant 100 u/ml 10 ml vial SC SCH ×4 (00:39→18:18)
[2017-11-01] MEDS: Ipratropium 0.02% Inhal Soln (0.5 mg/2.5 ml) UD IH SCH ×4 (01:05→19:14)
[2017-11-01] MEDS: Meropenem 500 MG in Sodium Chloride 0.9% 100 ML IVPB SCH ×3 (06:23→21:41)
[2017-11-01 06:45] LABS: BASO # 0.2 K/uL (0.0-0.2); EOS # 0.3 K/uL (0.0-0.7); EOS % 1.5 % (0.0-4.0); HEMATOCRIT 26.6 % (35.0-51.0); LYMPH # 2.2 K/uL (1.0-4.3); LYMPH % 12.7 % (20.0-40.0); MEAN CELL VOLUME 93.2 fL (80.0-94.0); MEAN CORPUSCULAR HEMOGLOBIN 29.4 pg (27.0-31.0); MEAN CORPUSCULAR HGB CONC 31.5 g/dL (33.0-37.0); MEAN PLATELET VOLUME 8.6 fL (7.2-11.7); MONO % 5.8 % (0.0-10.0); NRBC % 0.2 % (0.0-2.0); RED CELL DISTRIBUTION WIDTH 27.3 % (11.5-14.5); WHITE BLOOD COUNT 17.3 K/uL (4.8-10.8)
[2017-11-01 07:06] LABS: ALB/GLOB RATIO 0.9 (1.0-2.1); BILIRUBIN,TOTAL 0.5 mg/dL (0.2-1.3); CALCIUM 7.2 mg/dl (8.6-10.4); MAGNESIUM 1.9 mg/dL (1.6-2.3); PHOSPHOROUS 5.5 mg/dL (2.5-4.5); TOTAL PROTEIN 5.5 g/dL (6.3-8.3)
[2017-11-01] MEDS: Multiple Vitamins Oral Solution PEG SCH (09:23)
[2017-11-01] MEDS: Vitamins A & D Oint UD Foilpak TOP PRN (09:23)
[2017-11-01] MEDS: Saccharomyces Boulardi 250 mg Cap PO SCH ×2 (09:23→17:56)
[2017-11-01] MEDS: Insulin Detemir 100 units/ml Vial (Levemir) SC SCH ×2 (09:24→21:42)
--- NOTE | 2017-11-01 11:47 | CP.PCM.PN ---
Subjective - Date & Time of Evaluation Date of Evaluation: 11/01/17 Time of Evaluation: 11:46 - Subjective Subjective: seen and examined no events low bp on trach collar afebrile notes reviewed unable to obtain ros due to mental status Objective - Vital Signs/Intake and Output Vital Signs (last 24 hours): Temp Pulse Resp BP Pulse Ox 99.2 F 124 H 18 117/38 L 96 11/01/17 08:00 11/01/17 11:00 11/01/17 11:00 11/01/17 11:00 11/01/17 11:00 Intake and Output: 11/01/17 11/01/17 06:59 18:59 Intake Total 1240 Output Total 180 Balance 1060 - Medications Medications: Current Medications Ascorbic Acid (Vitamin C 500 Mg Tab) 500 mg PEG DAILY [facility] Last Admin: 11/01/17 09:23 Dose: 500 mg Aspirin (Aspirin Chewable) 81 mg PO DAILY [facility] Last Admin: 11/01/17 09:23 Dose: 81 mg Calcitriol (Rocaltrol) 0.25 mcg PEG DAILY [facility] Last Admin: 11/01/17 09:45 Dose: 0.25 mcg Epoetin [place] (Procrit) 10,000 unit IV MWF [facility] Last Admin: 10/31/17 11:58 Dose: 10,000 unit Micafungin Sodium 100 mg/ (Sodium Chloride) 100 mls @ 100 mls/hr IV Q24H [facility] Last Admin: 10/31/17 17:45 Dose: 100 mls/hr Meropenem 500 mg/ Sodium (Chloride) 100 mls @ 100 mls/hr IVPB Q8 [facility] Last Admin: 11/01/17 06:23 Dose: 100 mls/hr Insulin Aspart (Novolog) 0 unit SC Q6 LUIS FERNANDO PRN Reason: Protocol Last Admin: 11/01/17 06:21 Dose: Not Given Insulin Detemir (Levemir) 35 unit SC Q12 [facility] Last Admin: 11/01/17 09:24 Dose: 35 unit Ipratropium [place] (Atrovent) 0.5 mg IH RQ6 [facility] Last Admin: 11/01/17 06:59 Dose: 0.5 mg Loperamide HCl (Imodium) 1 mg PO Q4H PRN PRN Reason: Diarrhea Last Admin: 10/30/17 09:54 Dose: 1 mg Metoprolol Tartrate (Lopressor) 25 mg PEG BIDBS [facility] Last Admin: 10/25/17 09:58 Dose: Not Given Metronidazole (Flagyl) 500 mg GT Q8 [facility] Last Admin: 11/01/17 06:23 Dose: 500 mg Midodrine (Proamatine) 10 mg PO TID [facility] Last Admin: 11/01/17 09:23 Dose: 10 mg Multivitamins/Vitamin C (Multi-Delyn Liquid) 5 ml PEG DAILY [facility] Last Admin: 11/01/17 09:23 Dose: 5 ml Ondansetron HCl (Zofran Inj) 4 mg IVP Q8H PRN PRN Reason: Nausea/Vomiting Pantoprazole Sodium (Protonix Inj) 40 mg IVP DAILY [facility] Last Admin: 11/01/17 09:22 Dose: 40 mg Rosuvastatin Calcium (Crestor) 10 mg PO HS [facility] Last Admin: 10/31/17 21:29 Dose: 10 mg Saccharomyces Boulardii (Florastor) 250 mg PO BID [facility] Last Admin: 11/01/17 09:23 Dose: 250 mg Vitamin A (Vitamin A & D Oint Ud Foilpak) 0.5 ea TOP Q1H PRN PRN Reason: Dry skin Last Admin: 11/01/17 09:23 Dose: 0.5 ea - Labs Labs: 11/01/17 06:37 11/01/17 06:37 PT 13.4 SECONDS (9.7-12.2) H 10/14/17 16:30 INR 1.2 10/14/17 16:30 APTT 28 SECONDS (21-34) 10/14/17 16:30 - Constitutional Appears: No Acute Distress, Older Than Stated Age, Chronically Ill - Head Exam Head Exam: NORMAL INSPECTION - Eye Exam Eye Exam: Normal appearance - ENT Exam ENT Exam: Mucous Membranes Dry - Neck Exam Additional comments: trach collar - Respiratory Exam Respiratory Exam: Decreased Breath Sounds, NORMAL BREATHING PATTERN - Cardiovascular Exam Cardiovascular Exam: Tachycardia, RRR - GI/Abdominal Exam GI & Abdominal Exam: Distended, Soft - Extremities Exam Extremities Exam: Normal Inspection - Skin Skin Exam: Warm Assessment and Plan (1) Acute on chronic renal failure Status: Resolved (2) CHF (congestive heart failure) Status: Acute (3) History of DVT (deep vein thrombosis) Status: Acute (4) CAD (coronary artery disease) Status: Chronic (5) CKD (chronic kidney disease) Status: Chronic - Assessment and Plan (Free Text) Assessment: maintain hd per family wishes unable to tolerate uf poor prognosis
--- NOTE | 2017-11-01 16:50 | CP.PCM.PN ---
Subjective - Date & Time of Evaluation Date of Evaluation: 11/01/17 Time of Evaluation: 12:30 - Subjective Subjective: Medical Attending Note: Patient seen and examined at bedside. present at bedside. Unable to ROS secondary to patient is nonverbal. Patient will turn his head when tell him too. patient able to to scratch his forehead. Per , he does speak, but I personally have not witnessed it. does not want the permcath replaced given high risk given his multiple co-morbidities. Objective - Vital Signs/Intake and Output Vital Signs (last 24 hours): Temp Pulse Resp BP Pulse Ox 98.6 F 122 H 34 H 117/38 L 98 11/01/17 12:00 11/01/17 12:00 11/01/17 12:00 11/01/17 11:00 11/01/17 12:00 Intake and Output: 11/01/17 11/01/17 06:59 18:59 Intake Total 1240 100 Output Total 180 Balance 1060 100 - Medications Medications: Current Medications Ascorbic Acid (Vitamin C 500 Mg Tab) 500 mg PEG DAILY [facility] Last Admin: 11/01/17 09:23 Dose: 500 mg Aspirin (Aspirin Chewable) 81 mg PO DAILY [facility] Last Admin: 11/01/17 09:23 Dose: 81 mg Calcitriol (Rocaltrol) 0.25 mcg PEG DAILY [facility] Last Admin: 11/01/17 09:45 Dose: 0.25 mcg Epoetin [place] (Procrit) 10,000 unit IV MWF [facility] Last Admin: 10/31/17 11:58 Dose: 10,000 unit Micafungin Sodium 100 mg/ (Sodium Chloride) 100 mls @ 100 mls/hr IV Q24H [facility] Last Admin: 10/31/17 17:45 Dose: 100 mls/hr Meropenem 500 mg/ Sodium (Chloride) 100 mls @ 100 mls/hr IVPB Q8 [facility] Last Admin: 11/01/17 13:30 Dose: 100 mls/hr Insulin Aspart (Novolog) 0 unit SC Q6 [facility] PRN Reason: Protocol Last Admin: 11/01/17 12:31 Dose: 1 unit Insulin Detemir (Levemir) 35 unit SC Q12 [facility] Last Admin: 11/01/17 09:24 Dose: 35 unit Ipratropium [place] (Atrovent) 0.5 mg IH RQ6 [facility] Last Admin: 11/01/17 13:47 Dose: 0.5 mg Loperamide HCl (Imodium) 1 mg PO Q4H PRN PRN Reason: Diarrhea Last Admin: 10/30/17 09:54 Dose: 1 mg Metoprolol Tartrate (Lopressor) 25 mg PEG BIDBS [facility] Last Admin: 10/25/17 09:58 Dose: Not Given Metronidazole (Flagyl) 500 mg GT Q8 [facility] Last Admin: 11/01/17 13:29 Dose: 500 mg Midodrine (Proamatine) 10 mg PO TID [facility] Last Admin: 11/01/17 13:30 Dose: 10 mg Multivitamins (Hexavitamin) 1 tab PEG DAILY [facility] Ondansetron HCl (Zofran Inj) 4 mg IVP Q8H PRN PRN Reason: Nausea/Vomiting Pantoprazole Sodium (Protonix Inj) 40 mg IVP DAILY [facility] Last Admin: 11/01/17 09:22 Dose: 40 mg Rosuvastatin Calcium (Crestor) 10 mg PO HS [facility] Last Admin: 10/31/17 21:29 Dose: 10 mg Saccharomyces Boulardii (Florastor) 250 mg PO BID [facility] Last Admin: 11/01/17 09:23 Dose: 250 mg Vitamin A (Vitamin A & D Oint Ud Foilpak) 0.5 ea TOP Q1H PRN PRN Reason: Dry skin Last Admin: 11/01/17 09:23 Dose: 0.5 ea - Labs Labs: 11/01/17 06:37 11/01/17 06:37 PT 13.4 SECONDS (9.7-12.2) H 10/14/17 16:30 INR 1.2 10/14/17 16:30 APTT 28 SECONDS (21-34) 10/14/17 16:30 - Constitutional Appears: Chronically Ill - Head Exam Head Exam: NORMAL INSPECTION - Eye Exam Eye Exam: EOMI - Neck Exam Additional comments: trach clean/dry/intact - Respiratory Exam Respiratory Exam: Decreased Breath Sounds, Rales, Respiratory Distress, NORMAL BREATHING PATTERN. absent: Stridor - Cardiovascular Exam Cardiovascular Exam: Tachycardia, +S1, +S2 - GI/Abdominal Exam GI & Abdominal Exam: Soft, Normal Bowel Sounds. absent: Distended, Firm, Guarding, Rigid, Tenderness, Rebound - Extremities Exam Extremities Exam: absent: Pedal Edema Additional comments: muscle atrophy heel eschar prevalon boots [place] catheter - Neurological Exam Neurological Exam: Awake - Skin Skin Exam: Dry, Normal Color, Warm Assessment and Plan - Assessment and Plan (Free Text) Assessment: Patient seen, examined and case discussed with day-time resident. I spoke with at bedside. Does not want Permcath changed given cardiac risk for any type of operation. Will need to monitor H/H slowly downtrending; may need PRBC transfusion during dialysis tomorrow Pending placement given patient's new insurance status. Assessment/Plans 1). Hx Acute Respiratory Failure/ARDS/Cadiac Arrest/NSTEMI * Dr Cortés (cardiology) on the case-->help appreciated * Dr. Mena (pulmonary) on the case-->help appreciated * Code Blue on 08/10: asystole, cardiopulmonary resuscitative measures initiated , requiring 3 epis, bicarbonate, ROSC achieved and intubated and brought to the ICU. Patient has had multiple for hypotension. Latest MUSEUM PREPARATOR was on 10/14; stable awaiting for tele bed when available. * Atrovent 0.5mg Inhaled RQ6H * Aspirin 81mg PO daily * Lopressor 25mg PO BID with holding parameters * Midodrine 10mg PO TID * Crestor 10mg PO qHS 2). Hx Abnormal Stress Test/AICD/CAD * Dr Cortés (cardiology) on the case-->help appreciated * Dr. Mena (pulmonary) on the case-->help appreciated * Code Blue on 08/10: asystole, cardiopulmonary resuscitative measures initiated , requiring 3 epis, bicarbonate, ROSC achieved and intubated and brought to the ICU. Patient has had multiple for hypotension. Latest MUSEUM PREPARATOR was on 10/14; stable awaiting for tele bed when available. * Aspirin 81mg PO daily * Lopressor 25mg PO BID with holding parameters * Midodrine 10mg PO TID * Crestor 10mg PO qHS 3). Hx Atrial Flutter: * stopped Eliquis 10/24/17 secondary significant drop in HgB. Heart Rate is elevated. Ordered for Lopressor 5mg iVX1 on 10/31 * Lopressor 25mg PO BID with holding parameters 4). 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 Leukocytosis: Improving * Infectious Disease (Dr. Lawrence) on the case-->help appreciated * Blood Culture 10/22/17 is finalized as negative. * Sputum culture 10/14/17 is negative. * Stool cultures 10/20/17 are negative. 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 * Right Arm Midline Tip 10/06/17 culture is negative and removed. Midline Tip Culture 10/26/17 is negative. * Blood Cultures 10/28/17 are negative to date. * Iv ABx: Cefepime (10/12/17 through 10/24/17), Aztreonam (10/13/17 through )), Diflucan (10/14/17 through 10/26/17). * Currently on Meropenem 500 mg IV Q8H (10/28/17), Micofungin 100 mg IV Q24H () Flagyl (10/16/17). * I spoke with again, she does not want Permacath replaced given cardiac risk for operation/anesthesia. 6). Hx Pneumonia * Currently on Meropenem 500 mg IV Q8H (10/28/17), Micofungin 100 mg IV Q24H () Flagyl (10/16/17). 7). Hx HTN: * Lopressor 25mg PEG BID with holding parameters 8). Hx CKD on HD . * Family would like to continue HD through current Permacath and declined surgical intervention to change catheter (due to the Blood Culture 10/24/17 being positive for Reny glabrata) as recommended by Vascular Surgery and Infectious Disease. * I discussed with today at bedside again, she continues to deny the exchange secondary to cardiac risk. 9). Hx DM: * Levemir 35 units [id number] * monitor [id number] * HgbA1c 8.4 10). Hx HLD * Crestor 10mg PO qHS 11). Hx Anemia: * Eliquis stopped 10/24/17 and was transfused 2 units PRBCs. * CBC morning 10/25/17 dropped from 11.2 post trasfusion 10/24/17 to 10.2 morning 10/25/17. * Stool Occult is Positive and GI Dr. Dsouza was reconsulted however no further workup recommended in light of patient current status. * Procrit 10,000 units -- * Patient's blood is slowly decreasing; will likely need 1 unit of PRBC tomorrow during dialysis 12). Hx DVT * Eliquis stopped 10/24/17 given positive bloody stool * Repeat dopplers 08/09/17 are negative for DVT 13). Hx UTI: * Yeast on culture 10/24/17. He is currently on Micofungin 100 mg IV Q24H. He may be colonized with this. 14). Hx Alzheimer's Dementia * CT head w/o contrast (08/10/17):acute os subacute lacune infarct is not excluded in the left basal ganglia inferiorly with definitive chronic lacune identified in the right basal ganglia superiorly. No acute or subacute lobar brain infarction is appreciable by standard CT criteria. Mild age-related neuro * CT Head w/o contrast (10/14/17): no intracranial mass, hemorrhage, or evidence of acute infarct. 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 Old right external capsule ischemic change. Age related atrophy and chronic microvascular ischemic change * Note: patient does listen to his at bedside, follows simple commands 15). Hx Sacral Ulcer: * General surgery (Dr. Forbes) on board-->help appreciated * Bone Scan performed 09/17/17 to check for Osteomyelitis at the Sacrum: negative for osteomyelitis * currently on MediHoney daily, family has declined further debridement by surgery. Wound care on board 16). Hx Right Heal Ulcer * Podiatry (Dr. Lundberg) on board-->help appreciated * Prevalon boots * improved on exam and area of necrosis/unstageable area is decreased. Santyl and Optifoam daily. Pravolon boots 17). Hx Elevated LFTs * normalized; patient is on statin and Micafungin 18). Diarrhea: * on Rectal Seal and producing dark brown/black stools that are watery. Stool Studies 10/20/17 are negative * On loperamide PRn 19). Hx Hyponatremia: * lowered today 20). Hx PEG Tube: * Vital 1.5 at 50 ml/hour 21). Hx Hypocalcemia: * Calcitriol 22). Prophylactic Measures: * Vitamin C, Dulcolax PRN, Pepcid, MVI, Zofran PRN, Florastor * Started on dialysis 08/15/17 * s/p Right Chest Permcath 08/22/17 * S/P Tracheostomy 08/22/17 * S/P Peg tube placement 08/25/17 * s/p insertion of right posterior chest tube 08/19-->removed 08/24/17 * Passy Flom Trach placed 09/15/17 * s/p new mid line (left upper extremity) 10/26/17 prior mid line removed * (Jovita Serrano): * Patient is now: DNR
[2017-11-01] MEDS: Micafungin 100 MG in Sodium Chloride 0.9% 100 ML IV SCH (17:56)
[2017-11-02] MEDS: (Novolog) Insulin Aspart, Recombinant 100 u/ml 10 ml vial SC SCH ×4 (00:12→17:45)
[2017-11-02] MEDS: Ipratropium 0.02% Inhal Soln (0.5 mg/2.5 ml) UD IH SCH ×4 (01:45→19:56)
[2017-11-02] MEDS: Meropenem 500 MG in Sodium Chloride 0.9% 100 ML IVPB SCH ×3 (06:02→22:57)
[2017-11-02 06:28] LABS: BASO # 0.1 K/uL (0.0-0.2); BASO % 0.3 % (0.0-2.0); EOS # 0.2 K/uL (0.0-0.7); EOS % 1.3 % (0.0-4.0); HEMATOCRIT 27.3 % (35.0-51.0); LYMPH % 12.7 % (20.0-40.0); MEAN CELL VOLUME 93.3 fL (80.0-94.0); MEAN CORPUSCULAR HEMOGLOBIN 29.3 pg (27.0-31.0); MEAN CORPUSCULAR HGB CONC 31.4 g/dL (33.0-37.0); MEAN PLATELET VOLUME 8.6 fL (7.2-11.7); MONO # 0.9 K/uL (0.0-0.8); MONO % 6.1 % (0.0-10.0); NRBC % 0.1 % (0.0-2.0); WHITE BLOOD COUNT 15.5 K/uL (4.8-10.8)
[2017-11-02 06:29] LABS: ALB/GLOB RATIO 0.7 (1.0-2.1); BILIRUBIN,TOTAL 0.7 mg/dL (0.2-1.3); CALCIUM 7.4 mg/dl (8.6-10.4); POTASSIUM 4.5 mmol/L (3.6-5.2); TOTAL PROTEIN 6.3 g/dL (6.3-8.3)
--- NOTE | 2017-11-02 07:55 | CP.PCM.PN ---
<DanielTangela - Last Filed: 11/02/17 07:53> Subjective - Date & Time of Evaluation Date of Evaluation: 11/02/17 Time of Evaluation: 07:54 - Subjective Subjective: Patient seen and examined at bedside. Patient opened eyes to his name.Patient turned his head to medical student calling his name from the other side. Objective - Vital Signs/Intake and Output Vital Signs (last 24 hours): Temp Pulse Resp BP Pulse Ox 97.8 F 126 H 31 H 113/52 L 95 11/02/17 04:00 11/02/17 05:00 11/02/17 05:00 11/02/17 05:00 11/02/17 05:00 Intake and Output: 11/02/17 11/02/17 06:59 18:59 Intake Total 1140 Output Total 200 Balance 940 - Medications Medications: Current Medications Ascorbic Acid (Vitamin C 500 Mg Tab) 500 mg PEG DAILY [facility] Last Admin: 11/01/17 09:23 Dose: 500 mg Aspirin (Aspirin Chewable) 81 mg PO DAILY [facility] Last Admin: 11/01/17 09:23 Dose: 81 mg Calcitriol (Rocaltrol) 0.25 mcg PEG DAILY [facility] Last Admin: 11/01/17 09:45 Dose: 0.25 mcg Calcium Acetate (Phoslo) 1,334 mg PO TIDCC [facility] Epoetin Chencho (Procrit) 10,000 unit IV MWF [facility] Last Admin: 10/31/17 11:58 Dose: 10,000 unit Micafungin Sodium 100 mg/ (Sodium Chloride) 100 mls @ 100 mls/hr IV Q24H [facility] Last Admin: 11/01/17 17:56 Dose: 100 mls/hr Meropenem 500 mg/ Sodium (Chloride) 100 mls @ 100 mls/hr IVPB Q8 [facility] Last Admin: 11/02/17 06:02 Dose: 100 mls/hr Insulin Aspart (Novolog) 0 unit SC Q6 [facility] PRN Reason: Protocol Last Admin: 11/02/17 06:02 Dose: 2 unit Insulin Detemir (Levemir) 35 unit SC Q12 [facility] Last Admin: 11/01/17 21:42 Dose: 35 unit Ipratropium [place] (Atrovent) 0.5 mg IH RQ6 [facility] Last Admin: 11/02/17 07:21 Dose: 0.5 mg Loperamide HCl (Imodium) 1 mg PO Q4H PRN PRN Reason: Diarrhea Last Admin: 10/30/17 09:54 Dose: 1 mg Metoprolol Tartrate (Lopressor) 25 mg PEG BIDBS [facility] Last Admin: 10/25/17 09:58 Dose: Not Given Metronidazole (Flagyl) 500 mg GT Q8 [facility] Last Admin: 11/02/17 06:02 Dose: 500 mg Midodrine (Proamatine) 10 mg PO TID [facility] Last Admin: 11/01/17 17:56 Dose: 10 mg Multivitamins (Hexavitamin) 1 tab PEG DAILY [facility] Ondansetron HCl (Zofran Inj) 4 mg IVP Q8H PRN PRN Reason: Nausea/Vomiting Pantoprazole Sodium (Protonix Inj) 40 mg IVP DAILY [facility] Last Admin: 11/01/17 09:22 Dose: 40 mg Rosuvastatin Calcium (Crestor) 10 mg PO HS [facility] Last Admin: 11/01/17 21:42 Dose: 10 mg Saccharomyces Boulardii (Florastor) 250 mg PO BID [facility] Last Admin: 11/01/17 17:56 Dose: 250 mg Vitamin A (Vitamin A & D Oint Ud Foilpak) 0.5 ea TOP Q1H PRN PRN Reason: Dry skin Last Admin: 11/01/17 09:23 Dose: 0.5 ea - Labs Labs: 11/02/17 06:07 11/02/17 06:07 PT 13.4 SECONDS (9.7-12.2) H 10/14/17 16:30 INR 1.2 10/14/17 16:30 APTT 28 SECONDS (21-34) 10/14/17 16:30 <Mariangel Lazar V - Last Filed: 11/02/17 17:55> Objective - Vital Signs/Intake and Output Vital Signs (last 24 hours): Temp Pulse Resp BP Pulse Ox 98.0 F 124 H 26 H 95/46 L 100 11/02/17 16:00 11/02/17 16:06 11/02/17 16:06 11/02/17 16:06 11/02/17 15:06 Intake and Output: 11/02/17 11/02/17 06:59 18:59 Intake Total 1140 Output Total 200 Balance 940 - Medications Medications: Current Medications Ascorbic Acid (Vitamin C 500 Mg Tab) 500 mg PEG DAILY [facility] Last Admin: 11/02/17 13:36 Dose: 500 mg Aspirin (Aspirin Chewable) 81 mg PO DAILY [facility] Last Admin: 11/02/17 13:31 Dose: 81 mg Calcitriol (Rocaltrol) 0.25 mcg PEG DAILY [facility] Last Admin: 11/02/17 14:41 Dose: 0.25 mcg Calcium Acetate (Phoslo) 1,334 mg PO TIDCC [facility] Last Admin: 11/02/17 17:30 Dose: 1,334 mg Micafungin Sodium 100 mg/ (Sodium Chloride) 100 mls @ 100 mls/hr IV Q24H [facility] Last Admin: 11/01/17 17:56 Dose: 100 mls/hr Meropenem 500 mg/ Sodium (Chloride) 100 mls @ 100 mls/hr IVPB Q8 [facility] Last Admin: 11/02/17 13:28 Dose: 100 mls/hr Insulin Aspart (Novolog) 0 unit SC Q6 [facility] PRN Reason: Protocol Last Admin: 11/02/17 17:45 Dose: 2 unit Insulin Detemir (Levemir) 35 unit SC Q12 [facility] Last Admin: 11/02/17 13:11 Dose: Not Given Ipratropium [place] (Atrovent) 0.5 mg IH RQ6 [facility] Last Admin: 11/02/17 14:01 Dose: 0.5 mg Loperamide HCl (Imodium) 1 mg PO Q4H PRN PRN Reason: Diarrhea Last Admin: 10/30/17 09:54 Dose: 1 mg Metoprolol Tartrate (Lopressor) 25 mg PEG BIDBS [facility] Last Admin: 10/25/17 09:58 Dose: Not Given Metronidazole (Flagyl) 500 mg GT Q8 [facility] Last Admin: 11/02/17 13:32 Dose: 500 mg Midodrine (Proamatine) 10 mg PO TID [facility] Last Admin: 11/02/17 17:30 Dose: 10 mg Multivitamins (Hexavitamin) 1 tab PEG DAILY [facility] Last Admin: 11/02/17 13:33 Dose: 1 tab Ondansetron HCl (Zofran Inj) 4 mg IVP Q8H PRN PRN Reason: Nausea/Vomiting Pantoprazole Sodium (Protonix Inj) 40 mg IVP DAILY [facility] Last Admin: 11/02/17 13:35 Dose: 40 mg Rosuvastatin Calcium (Crestor) 10 mg PO HS [facility] Last Admin: 11/01/17 21:42 Dose: 10 mg Saccharomyces Boulardii (Florastor) 250 mg PO BID [facility] Last Admin: 11/02/17 17:30 Dose: 250 mg Vitamin A (Vitamin A & D Oint Ud Foilpak) 0.5 ea TOP Q1H PRN PRN Reason: Dry skin Last Admin: 11/01/17 09:23 Dose: 0.5 ea - Labs Labs: 11/02/17 06:07 11/02/17 06:07 PT 13.4 SECONDS (9.7-12.2) H 10/14/17 16:30 INR 1.2 10/14/17 16:30 APTT 28 SECONDS (21-34) 10/14/17 16:30 Attending/Attestation - Attestation I have personally seen and examined this patient.: Yes I have fully participated in the care of the patient.: Yes I have reviewed all pertinent clinical information, including history, physical exam and plan: Yes Notes (Text): Patient seen, examined and case discussed with day-time resident. Will need to monitor H/H slowly downtrending; may need PRBC transfusion during dialysis for Tuesday. Pending placement given patient's new insurance status. Discussed with case management, patient's insurance is not active. Assessment/Plans 1). Hx Acute Respiratory Failure/ARDS/Cadiac Arrest/NSTEMI * Dr Cortés (cardiology) on the case-->help appreciated * Dr. Mena (pulmonary) on the case-->help appreciated * Code Blue on 08/10: asystole, cardiopulmonary resuscitative measures initiated , requiring 3 epis, bicarbonate, ROSC achieved and intubated and brought to the ICU. Patient has had multiple for hypotension. Latest [employer]PERATOR was on 10/14; stable awaiting for tele bed when available. * Atrovent 0.5mg Inhaled RQ6H * Aspirin 81mg PO daily * Lopressor 25mg PO BID with holding parameters * Midodrine 10mg PO TID * Crestor 10mg PO qHS 2). Hx Abnormal Stress Test/AICD/CAD * Dr Cortés (cardiology) on the case-->help appreciated * Dr. Mena (pulmonary) on the case-->help appreciated * Code Blue on 08/10: asystole, cardiopulmonary resuscitative measures initiated , requiring 3 epis, bicarbonate, ROSC achieved and intubated and brought to the ICU. Patient has had multiple for hypotension. Latest [employer] M[employer] OPERATOR was on 10/14; stable awaiting for tele bed when available. * Aspirin 81mg PO daily * Lopressor 25mg PO BID with holding parameters * Midodrine 10mg PO TID * Crestor 10mg PO qHS 3). Hx Atrial Flutter: * stopped Eliquis 10/24/17 secondary significant drop in HgB. Heart Rate is elevated. Ordered for Lopressor 5mg iVX1 on 10/31 * Lopressor 25mg PO BID with holding parameters 4). Hx Acute on Chronic Sytolic HF * Aspirin 81mg PO daily * Lopressor 25mg PO BID with holding parameters * Midodrine 10mg PO TID * Crestor 10mg PO qHS * Lisinopril was discontinued on 10/14/17 at the time of [employer]PERATOR for Hypotension 5). Leukocytosis: Improving * Infectious Disease (Dr. Lawrence) on the case-->help appreciated * Blood Culture 10/22/17 is finalized as negative. * Sputum culture 10/14/17 is negative. * Stool cultures 10/20/17 are negative. 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 * Right Arm Midline Tip 10/06/17 culture is negative and removed. Midline Tip Culture 10/26/17 is negative. * Blood Cultures 10/28/17 are negative to date. * Iv ABx: Cefepime (10/12/17 through 10/24/17), Aztreonam (10/13/17 through )), Diflucan (10/14/17 through 10/26/17). * Currently on Meropenem 500 mg IV Q8H (10/28/17), Micofungin 100 mg IV Q24H () Flagyl (10/16/17). * I spoke with again, she does not want Permacath replaced given cardiac risk for operation/anesthesia. 6). Hx Pneumonia * Currently on Meropenem 500 mg IV Q8H (10/28/17), Micofungin 100 mg IV Q24H () Flagyl (10/16/17). 7). Hx HTN: * Lopressor 25mg PEG BID with holding parameters 8). Hx CKD on HD --. * Family would like to continue HD through current Permacath and declined surgical intervention to change catheter (due to the Blood Culture 10/24/17 being positive for Reny glabrata) as recommended by Vascular Surgery and Infectious Disease. * I discussed with today at bedside again, she continues to deny the exchange secondary to cardiac risk. 9). Hx DM: * Levemir 35 units [id number] * monitor [id number] * HgbA1c 8.4 10). Hx HLD * Crestor 10mg PO qHS 11). Hx Anemia: * Eliquis stopped 10/24/17 and was transfused 2 units PRBCs. * CBC morning 10/25/17 dropped from 11.2 post trasfusion 10/24/17 to 10.2 morning 10/25/17. * Stool Occult is Positive and GI Dr. Dsouza was reconsulted however no further workup recommended in light of patient current status. * Procrit 10,000 units -- * Patient's blood is slowly decreasing; will likely need 1 unit of PRBC tomorrow during dialysis 12). Hx DVT * Eliquis stopped 10/24/17 given positive bloody stool * Repeat dopplers 08/09/17 are negative for DVT 13). Hx UTI: * Yeast on culture 10/24/17. He is currently on Micofungin 100 mg IV Q24H. He may be colonized with this. 14). Hx Alzheimer's Dementia * CT head w/o contrast (08/10/17):acute os subacute lacune infarct is not excluded in the left basal ganglia inferiorly with definitive chronic lacune identified in the right basal ganglia superiorly. No acute or subacute lobar brain infarction is appreciable by standard CT criteria. Mild age-related neuro * CT Head w/o contrast (10/14/17): no intracranial mass, hemorrhage, or evidence of acute infarct. 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 Old right external capsule ischemic change. Age related atrophy and chronic microvascular ischemic change * Note: patient does listen to his at bedside, follows simple commands 15). Hx Sacral Ulcer: * General surgery (Dr. Forbes) on board-->help appreciated * Bone Scan performed 09/17/17 to check for Osteomyelitis at the Sacrum: negative for osteomyelitis * currently on MediHoney daily, family has declined further debridement by surgery. Wound care on board 16). Hx Right Heal Ulcer * Podiatry (Dr. Lundberg) on board-->help appreciated * Prevalon boots * improved on exam and area of necrosis/unstageable area is decreased. Santyl and Optifoam daily. Pravolon boots 17). Hx Elevated LFTs * normalized; patient is on statin and Micafungin 18). Diarrhea: * on Rectal Seal and producing dark brown/black stools that are watery. Stool Studies 10/20/17 are negative * On loperamide PRn 19). Hx Hyponatremia: * lowered today 20). Hx PEG Tube: * Vital 1.5 at 50 ml/hour 21). Hx Hypocalcemia: * Calcitriol 22). Prophylactic Measures: * Vitamin C, Dulcolax PRN, Pepcid, MVI, Zofran PRN, Florastor * Started on dialysis 08/15/17 * s/p Right Chest Permcath 08/22/17 * S/P Tracheostomy 08/22/17 * S/P Peg tube placement 08/25/17 * s/p insertion of right posterior chest tube 08/19-->removed 08/24/17 * Passy Flex Trach placed 09/15/17 * s/p new mid line (left upper extremity) 10/26/17 prior mid line removed * (Jovita Serrano): * Patient is now: DNR
[2017-11-02] MEDS ORDERED: Multiple Vitamins Oral Solution PEG SCH (10:00)
[2017-11-02] MEDS: Epoetin Alfa 10,000 unit/ml Dialysis IV SCH (11:32)
[2017-11-02] MEDS: Saccharomyces Boulardi 250 mg Cap PO SCH ×2 (13:07→17:30)
[2017-11-02] MEDS: Insulin Detemir 100 units/ml Vial (Levemir) SC SCH ×2 (13:11→22:55)
[2017-11-02] MEDS: Multiple Vitamins Tab PEG SCH (13:33)
--- NOTE | 2017-11-02 14:36 | CP.PCM.PN ---
Subjective - Date & Time of Evaluation Date of Evaluation: 11/02/17 Time of Evaluation: 12:40 - Subjective Subjective: s/p HD today 800 cc UF stable BP at present Unable to obtain ROS due to mental status No family at bedside Objective - Vital Signs/Intake and Output Vital Signs (last 24 hours): Temp Pulse Resp BP Pulse Ox 98.8 F 124 H 26 H 107/44 L 100 11/02/17 13:00 11/02/17 13:00 11/02/17 13:00 11/02/17 13:00 11/02/17 13:00 Intake and Output: 11/02/17 11/02/17 06:59 18:59 Intake Total 1140 Output Total 200 Balance 940 - Medications Medications: Current Medications Ascorbic Acid (Vitamin C 500 Mg Tab) 500 mg PEG DAILY [facility] Last Admin: 11/02/17 13:36 Dose: 500 mg Aspirin (Aspirin Chewable) 81 mg PO DAILY [facility] Last Admin: 11/02/17 13:31 Dose: 81 mg Calcitriol (Rocaltrol) 0.25 mcg PEG DAILY [facility] Last Admin: 11/01/17 09:45 Dose: 0.25 mcg Calcium Acetate (Phoslo) 1,334 mg PO TIDCC [facility] Last Admin: 11/02/17 13:08 Dose: Not Given Micafungin Sodium 100 mg/ (Sodium Chloride) 100 mls @ 100 mls/hr IV Q24H [facility] Last Admin: 11/01/17 17:56 Dose: 100 mls/hr Meropenem 500 mg/ Sodium (Chloride) 100 mls @ 100 mls/hr IVPB Q8 [facility] Last Admin: 11/02/17 13:28 Dose: 100 mls/hr Insulin Aspart (Novolog) 0 unit SC Q6 [facility] PRN Reason: Protocol Last Admin: 11/02/17 12:25 Dose: 1 unit Insulin Detemir (Levemir) 35 unit SC Q12 [facility] Last Admin: 11/02/17 13:11 Dose: Not Given Ipratropium [place] (Atrovent) 0.5 mg IH RQ6 [facility] Last Admin: 11/02/17 14:01 Dose: 0.5 mg Loperamide HCl (Imodium) 1 mg PO Q4H PRN PRN Reason: Diarrhea Last Admin: 10/30/17 09:54 Dose: 1 mg Metoprolol Tartrate (Lopressor) 25 mg PEG BIDBS [facility] Last Admin: 10/25/17 09:58 Dose: Not Given Metronidazole (Flagyl) 500 mg GT Q8 [facility] Last Admin: 11/02/17 13:32 Dose: 500 mg Midodrine (Proamatine) 10 mg PO TID [facility] Last Admin: 11/02/17 13:08 Dose: Not Given Multivitamins (Hexavitamin) 1 tab PEG DAILY [facility] Last Admin: 11/02/17 13:33 Dose: 1 tab Ondansetron HCl (Zofran Inj) 4 mg IVP Q8H PRN PRN Reason: Nausea/Vomiting Pantoprazole Sodium (Protonix Inj) 40 mg IVP DAILY [facility] Last Admin: 11/02/17 13:35 Dose: 40 mg Rosuvastatin Calcium (Crestor) 10 mg PO HS [facility] Last Admin: 11/01/17 21:42 Dose: 10 mg Saccharomyces Boulardii (Florastor) 250 mg PO BID [facility] Last Admin: 11/02/17 13:07 Dose: Not Given Vitamin A (Vitamin A & D Oint Ud Foilpak) 0.5 ea TOP Q1H PRN PRN Reason: Dry skin Last Admin: 11/01/17 09:23 Dose: 0.5 ea - Labs Labs: 11/02/17 06:07 11/02/17 06:07 PT 13.4 SECONDS (9.7-12.2) H 10/14/17 16:30 INR 1.2 10/14/17 16:30 APTT 28 SECONDS (21-34) 10/14/17 16:30 - Constitutional Appears: Chronically Ill - Head Exam Head Exam: ATRAUMATIC Additional comments: trach collar - ENT Exam ENT Exam: Mucous Membranes Moist - Respiratory Exam Respiratory Exam: Decreased Breath Sounds. absent: Accessory Muscle Use - Cardiovascular Exam Cardiovascular Exam: Irregular Rhythm, RRR - GI/Abdominal Exam GI & Abdominal Exam: Distended, Soft. absent: Tenderness - Neurological Exam Neurological Exam: absent: Alert, Oriented x3 Assessment and Plan - Assessment and Plan (Free Text) Plan: Maint HD to be continued cardiomyopathy trach collar anoxic encephalopathy line sepsis prognosis poor
[2017-11-02] MEDS: Micafungin 100 MG in Sodium Chloride 0.9% 100 ML IV SCH (18:49)
--- NOTE | 2017-11-02 21:23 | CP.PCM.PN ---
Subjective - Date & Time of Evaluation Date of Evaluation: 11/02/17 Time of Evaluation: 07:05 - Subjective Subjective: Subjective: Patient with altered mental status Not in distress Unable to obtain ROS due to mental status No family at bedside Physical Examination - Constitutional Appears: Chronically Ill - Head Exam Head Exam: ATRAUMATIC Additional comments: trach collar - ENT Exam ENT Exam: Mucous Membranes Moist - Respiratory Exam Respiratory Exam: Decreased Breath Sounds. absent: Accessory Muscle Use - Cardiovascular Exam Cardiovascular Exam: Irregular Rhythm, RRR - GI/Abdominal Exam GI & Abdominal Exam: Distended, Soft. absent: Tenderness - Neurological Exam Neurological Exam: absent: Alert, Oriented x3 Objective - Vital Signs/Intake and Output Vital Signs (last 24 hours): Temp Pulse Resp BP Pulse Ox 98.0 F 124 H 26 H 95/46 L 100 11/02/17 16:00 11/02/17 16:06 11/02/17 16:06 11/02/17 16:06 11/02/17 15:06 Intake and Output: 11/02/17 11/03/17 18:59 06:59 Intake Total 940 Output Total 0 Balance 940 - Medications Medications: Current Medications Ascorbic Acid (Vitamin C 500 Mg Tab) 500 mg PEG DAILY [facility] Last Admin: 11/02/17 13:36 Dose: 500 mg Aspirin (Aspirin Chewable) 81 mg PO DAILY [facility] Last Admin: 11/02/17 13:31 Dose: 81 mg Calcitriol (Rocaltrol) 0.25 mcg PEG DAILY [facility] Last Admin: 11/02/17 14:41 Dose: 0.25 mcg Calcium Acetate (Phoslo) 1,334 mg PO TIDCC [facility] Last Admin: 11/02/17 17:30 Dose: 1,334 mg Micafungin Sodium 100 mg/ (Sodium Chloride) 100 mls @ 100 mls/hr IV Q24H [facility] Last Admin: 11/02/17 18:49 Dose: 100 mls/hr Meropenem 500 mg/ Sodium (Chloride) 100 mls @ 100 mls/hr IVPB Q8 [facility] Last Admin: 11/02/17 13:28 Dose: 100 mls/hr Insulin Aspart (Novolog) 0 unit SC Q6 [facility] PRN Reason: Protocol Last Admin: 11/02/17 17:45 Dose: 2 unit Insulin Detemir (Levemir) 35 unit SC Q12 [facility] Last Admin: 11/02/17 13:11 Dose: Not Given Ipratropium [place]ott (Atrovent) 0.5 mg IH RQ6 [facility] Last Admin: 11/02/17 19:56 Dose: 0.5 mg Loperamide HCl (Imodium) 1 mg PO Q4H PRN PRN Reason: Diarrhea Last Admin: 10/30/17 09:54 Dose: 1 mg Metoprolol Tartrate (Lopressor) 25 mg PEG BIDBS [facility] Last Admin: 10/25/17 09:58 Dose: Not Given Metronidazole (Flagyl) 500 mg GT Q8 [facility] Last Admin: 11/02/17 13:32 Dose: 500 mg Midodrine (Proamatine) 10 mg PO TID [facility] Last Admin: 11/02/17 17:30 Dose: 10 mg Multivitamins (Hexavitamin) 1 tab PEG DAILY [facility] Last Admin: 11/02/17 13:33 Dose: 1 tab Ondansetron HCl (Zofran Inj) 4 mg IVP Q8H PRN PRN Reason: Nausea/Vomiting Pantoprazole Sodium (Protonix Inj) 40 mg IVP DAILY [facility] Last Admin: 11/02/17 13:35 Dose: 40 mg Rosuvastatin Calcium (Crestor) 10 mg PO HS [facility] Last Admin: 11/01/17 21:42 Dose: 10 mg Saccharomyces Boulardii (Florastor) 250 mg PO BID [facility] Last Admin: 11/02/17 17:30 Dose: 250 mg Vitamin A (Vitamin A & D Oint Ud Foilpak) 0.5 ea TOP Q1H PRN PRN Reason: Dry skin Last Admin: 11/01/17 09:23 Dose: 0.5 ea - Labs Labs: 11/02/17 06:07 11/02/17 06:07 PT 13.4 SECONDS (9.7-12.2) H 10/14/17 16:30 INR 1.2 10/14/17 16:30 APTT 28 SECONDS (21-34) 10/14/17 16:30 Assessment and Plan - Assessment and Plan (Free Text) Assessment: Assessment/Plans 1). Hx Acute Respiratory Failure/ARDS/Cadiac Arrest/NSTEMI * Dr. Mena (pulmonary) on the case-->help appreciated * Code Blue on 08/10: asystole, cardiopulmonary resuscitative measures initiated , requiring 3 epis, bicarbonate, ROSC achieved and intubated and brought to the ICU. Patient has had multiple for hypotension. Latest CAMP MANAGER was on 10/14; stable awaiting for tele bed when available. * Atrovent 0.5mg Inhaled RQ6H * Aspirin 81mg PO daily * Lopressor 25mg PO BID with holding parameters * Midodrine 10mg PO TID * Crestor 10mg PO qHS 2). Hx Abnormal Stress Test/AICD/CAD * Dr. Mena (pulmonary) on the case-->help appreciated * Code Blue on 08/10: asystole, cardiopulmonary resuscitative measures initiated , requiring 3 epis, bicarbonate, ROSC achieved and intubated and brought to the ICU. Patient has had multiple for hypotension. Latest CAMP MANAGER was on 10/14; stable awaiting for tele bed when available. * Aspirin 81mg PO daily * Lopressor 25mg PO BID with holding parameters * Midodrine 10mg PO TID * Crestor 10mg PO qHS 3). Hx Atrial Flutter: * stopped Eliquis 10/24/17 secondary significant drop in HgB. Heart Rate is elevated. Ordered for Lopressor 5mg iVX1 on 10/31 * Lopressor 25mg PO BID with holding parameters 4). 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 Leukocytosis: Improving * Infectious Disease (Dr. Lawrence) on the case-->help appreciated * Blood Culture 10/22/17 is finalized as negative. * Sputum culture 10/14/17 is negative. * Stool cultures 10/20/17 are negative. 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 * Right Arm Midline Tip 10/06/17 culture is negative and removed. Midline Tip Culture 10/26/17 is negative. * Blood Cultures 10/28/17 are negative to date. * Iv ABx: Cefepime (10/12/17 through 10/24/17), Aztreonam (10/13/17 through )), Diflucan (10/14/17 through 10/26/17). * Currently on Meropenem 500 mg IV Q8H (10/28/17), Micofungin 100 mg IV Q24H () Flagyl (10/16/17). * I spoke with again, she does not want Permacath replaced given cardiac risk for operation/anesthesia. 6). Hx Pneumonia * Currently on Meropenem 500 mg IV Q8H (10/28/17), Micofungin 100 mg IV Q24H () Flagyl (10/16/17). 7). Hx HTN: * Lopressor 25mg PEG BID with holding parameters 8). Hx CKD on HD --. * Family would like to continue HD through current Permacath and declined surgical intervention to change catheter (due to the Blood Culture 10/24/17 being positive for Reny glabrata) as recommended by Vascular Surgery and Infectious Disease. * I discussed with today at bedside again, she continues to deny the exchange secondary to cardiac risk. 9). Hx DM: * Levemir 35 units [id number] * monitor [id number] * HgbA1c 8.4 10). Hx HLD * Crestor 10mg PO qHS 11). Hx Anemia: * Eliquis stopped 10/24/17 and was transfused 2 units PRBCs. * CBC morning 10/25/17 dropped from 11.2 post trasfusion 10/24/17 to 10.2 morning 10/25/17. * Stool Occult is Positive and GI Dr. Dsouza was reconsulted however no further workup recommended in light of patient current status. * Procrit 10,000 units - * Patient's blood is slowly decreasing; will likely need 1 unit of PRBC tomorrow during dialysis 12). Hx DVT * Eliquis stopped 10/24/17 given positive bloody stool * Repeat dopplers 08/09/17 are negative for DVT 13). Hx UTI: * Yeast on culture 10/24/17. He is currently on Micofungin 100 mg IV Q24H. He may be colonized with this. 14). Hx Alzheimer's Dementia * CT head w/o contrast (08/10/17):acute os subacute lacune infarct is not excluded in the left basal ganglia inferiorly with definitive chronic lacune identified in the right basal ganglia superiorly. No acute or subacute lobar brain infarction is appreciable by standard CT criteria. Mild age-related neuro * CT Head w/o contrast (10/14/17): no intracranial mass, hemorrhage, or evidence of acute infarct. 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 Old right external capsule ischemic change. Age related atrophy and chronic microvascular ischemic change * Note: patient does listen to his at bedside, follows simple commands 15). Hx Sacral Ulcer: * General surgery (Dr. Forbes) on board-->help appreciated * Bone Scan performed 09/17/17 to check for Osteomyelitis at the Sacrum: negative for osteomyelitis * currently on MediHoney daily, family has declined further debridement by surgery. Wound care on board 16). Hx Right Heal Ulcer * Podiatry (Dr. Lundberg) on board-->help appreciated * Prevalon boots * improved on exam and area of necrosis/unstageable area is decreased. Santyl and Optifoam daily. Pravolon boots 17). Hx Elevated LFTs * normalized; patient is on statin and Micafungin 18). Diarrhea: * on Rectal Seal and producing dark brown/black stools that are watery. Stool Studies 10/20/17 are negative * On loperamide PRn 19). Hx Hyponatremia: * lowered today 20). Hx PEG Tube: * Vital 1.5 at 50 ml/hour 21). Hx Hypocalcemia: * Calcitriol 22). Prophylactic Measures: * Vitamin C, Dulcolax PRN, Pepcid, MVI, Zofran PRN, Florastor * Started on dialysis 08/15/17 * s/p Right Chest Permcath 08/22/17 * S/P Tracheostomy 08/22/17 * S/P Peg tube placement 08/25/17 * s/p insertion of right posterior chest tube 08/19-->removed 08/24/17 * Passy Flex Trach placed 09/15/17 * s/p new mid line (left upper extremity) 10/26/17 prior mid line removed * (Jovita Serrano): * Patient is now: DNR
[2017-11-03] MEDS: (Novolog) Insulin Aspart, Recombinant 100 u/ml 10 ml vial SC SCH ×4 (00:13→18:16)
[2017-11-03] MEDS: Ipratropium 0.02% Inhal Soln (0.5 mg/2.5 ml) UD IH SCH ×4 (01:40→20:50)
[2017-11-03 06:29] LABS: BASO # 0.1 K/uL (0.0-0.2); BASO % 0.4 % (0.0-2.0); EOS # 0.1 K/uL (0.0-0.7); EOS % 0.6 % (0.0-4.0); HEMATOCRIT 27.8 % (35.0-51.0); LYMPH # 1.2 K/uL (1.0-4.3); LYMPH % 6.8 % (20.0-40.0); MEAN CELL VOLUME 93.7 fL (80.0-94.0); MEAN CORPUSCULAR HEMOGLOBIN 29.6 pg (27.0-31.0); MEAN CORPUSCULAR HGB CONC 31.6 g/dL (33.0-37.0); MEAN PLATELET VOLUME 8.5 fL (7.2-11.7); MONO # 0.8 K/uL (0.0-0.8); MONO % 4.9 % (0.0-10.0); NRBC % 0.2 % (0.0-2.0); PLATELET COUNT 497 K/uL (130-400); RED CELL DISTRIBUTION WIDTH 26.6 % (11.5-14.5)
[2017-11-03 06:46] LABS: ALB/GLOB RATIO 0.9 (1.0-2.1); BILIRUBIN,TOTAL 0.4 mg/dL (0.2-1.3); CALCIUM 7.1 mg/dl (8.6-10.4); POTASSIUM 4.1 mmol/L (3.6-5.2); TOTAL PROTEIN 5.4 g/dL (6.3-8.3)
[2017-11-03] MEDS: Meropenem 500 MG in Sodium Chloride 0.9% 100 ML IVPB SCH ×3 (07:02→22:40)
[2017-11-03 08:14] LABS: NEUTROPHIL 89 % (50-75); TOTAL CELLS COUNTED 100
--- NOTE | 2017-11-03 08:17 | CP.PCM.PN ---
<Tangela Sanchez - Last Filed: 11/03/17 18:19> Subjective - Date & Time of Evaluation Date of Evaluation: 11/03/17 Time of Evaluation: 08:11 - Subjective Subjective: Progress Note Patient seen and examined at bedside. No acute events overnight. Patient had right arm flexed and scratching face. Patient seen moving his body to try to sit up a little higher. Patient lifted head off of the pillow. Patient made facial indications showing that he was trying to respond. Lips did not move to respond. Eyes were alert at moments and dulled. Per Nursing, patient has done this before. This is the first time this resident has observed this much movement since patient was in ICU Bed 5 (about 2 months prior). Objective - Vital Signs/Intake and Output Vital Signs (last 24 hours): Temp Pulse Resp BP Pulse Ox 98.5 F 133 H 20 135/54 L 100 11/03/17 04:00 11/03/17 04:06 11/03/17 04:06 11/03/17 04:06 11/03/17 04:06 Intake and Output: 11/03/17 11/03/17 06:59 18:59 Intake Total 1240 Output Total 100 Balance 1140 - Medications Medications: Current Medications Ascorbic Acid (Vitamin C 500 Mg Tab) 500 mg PEG DAILY [facility] Last Admin: 11/02/17 13:36 Dose: 500 mg Aspirin (Aspirin Chewable) 81 mg PO DAILY [facility] Last Admin: 11/02/17 13:31 Dose: 81 mg Calcitriol (Rocaltrol) 0.25 mcg PEG DAILY [facility] Last Admin: 11/02/17 14:41 Dose: 0.25 mcg Calcium Acetate (Phoslo) 1,334 mg PO TIDCC [facility] Last Admin: 11/03/17 07:49 Dose: 1,334 mg Micafungin Sodium 100 mg/ (Sodium Chloride) 100 mls @ 100 mls/hr IV Q24H [facility] Last Admin: 11/02/17 18:49 Dose: 100 mls/hr Meropenem 500 mg/ Sodium (Chloride) 100 mls @ 100 mls/hr IVPB Q8 [facility] Last Admin: 11/03/17 07:02 Dose: 100 mls/hr Insulin Aspart (Novolog) 0 unit SC Q6 [facility] PRN Reason: Protocol Last Admin: 11/03/17 06:00 Dose: 3 unit Insulin Detemir (Levemir) 35 unit SC Q12 [facility] Last Admin: 11/02/17 22:55 Dose: 35 unit Ipratropium Sully (Atrovent) 0.5 mg IH RQ6 [facility] Last Admin: 11/03/17 07:14 Dose: 0.5 mg Loperamide HCl (Imodium) 1 mg PO Q4H PRN PRN Reason: Diarrhea Last Admin: 10/30/17 09:54 Dose: 1 mg Metoprolol Tartrate (Lopressor) 25 mg PEG BIDBS [facility] Last Admin: 10/25/17 09:58 Dose: Not Given Metronidazole (Flagyl) 500 mg GT Q8 [facility] Last Admin: 11/03/17 05:59 Dose: 500 mg Midodrine (Proamatine) 10 mg PO TID [facility] Last Admin: 11/02/17 17:30 Dose: 10 mg Multivitamins (Hexavitamin) 1 tab PEG DAILY [facility] Last Admin: 11/02/17 13:33 Dose: 1 tab Ondansetron HCl (Zofran Inj) 4 mg IVP Q8H PRN PRN Reason: Nausea/Vomiting Pantoprazole Sodium (Protonix Inj) 40 mg IVP DAILY [facility] Last Admin: 11/02/17 13:35 Dose: 40 mg Rosuvastatin Calcium (Crestor) 10 mg PO HS [facility] Last Admin: 11/02/17 22:54 Dose: 10 mg Saccharomyces Boulardii (Florastor) 250 mg PO BID [facility] Last Admin: 11/02/17 17:30 Dose: 250 mg Vitamin A (Vitamin A & D Oint Ud Foilpak) 0.5 ea TOP Q1H PRN PRN Reason: Dry skin Last Admin: 11/01/17 09:23 Dose: 0.5 ea - Labs Labs: 11/03/17 06:20 11/03/17 06:20 PT 13.4 SECONDS (9.7-12.2) H 10/14/17 16:30 INR 1.2 10/14/17 16:30 APTT 28 SECONDS (21-34) 10/14/17 16:30 - Constitutional Appears: Non-toxic, No Acute Distress - Head Exam Head Exam: NORMAL INSPECTION - Eye Exam Eye Exam: EOMI, Normal appearance - ENT Exam ENT Exam: Mucous Membranes Moist - Respiratory Exam Respiratory Exam: Decreased Breath Sounds, NORMAL BREATHING PATTERN Additional comments: trach is in place, minimal secretions.. - Cardiovascular Exam Cardiovascular Exam: Tachycardia, REGULAR RHYTHM, +S1, +S2 - GI/Abdominal Exam GI & Abdominal Exam: Distended, Soft Additional comments: PEG in place - Neurological Exam Neurological Exam: Awake Assessment and Plan - Assessment and Plan (Free Text) Assessment: 77M with ARDS s/p cardiac arrest, with pulmonary edema and NSTEMI * Ipratropium 0.02% (atrovent) 0.5mg IH RQ6H * 10/24 CXR: questionable interval atelectasis or infiltrate in medial right base * 10/23 mid bibasilar atelectasis. questionable small left-sided effusion * CXR left lobe atelectasis v pna * 10/26 right midline removed, tip of midline sent for culture 10/26, new midline placed on left arm 10/26 * 10/[address] Lawrence: fungal infection in blood, lines should be changed. * 10/[address] Lawrence: fungal infection in blood, lines should be changed. * reach out to Mrs. Wolf, if family does want patient on dialysis: dialysis needs to be changed * f/u echo to rule out vegetations * 10/28: Family wants patient to receive dialysis; consulted surgery for permacath replacement. * Surgery consulted, Dr. Forbes * Patient received dialysis today; developed sinus tachycardia during; continue to monitor on telemetry. * 10/29 Digoxin 0.25 mg IV was given to patient for the sinus tachycardia. * ECHO: LV function markedly reduced, diffuse hypokinesis; septum is akinetic; LV EF 20%; Trace AR. * Continue mycamine 100mg POQD, merrem 500 POQD, flagy 500mg GT Q8 Constipation, resolved * Dulcolax 10mg CO Once PRN 10/21, patient had a dark brown BM yesterday, none today per nursing staff * Patient is having diarrhea in the Flexseal. Cultures were taken, currently negative * GI Dr. Wills consulted: does not feel that it would be in the best interest of the patient at this time to do any invasive procedure or examination. Diarrhea * One dose of immodium given overnight Hypotensive, resolving, stable * Metoprolol on hold HTN * 10/31 Lopressor 5mg once was given today for high blood pressure Leukocytosis * current cultures negative (blood, stool and wound) * 10/14 urine culture: yeast * 10/14 blood culture is positive for yeast * f/u stool culture from rectoseal from 10/23 * 10/26 WBC 25.5 * 10/27 WBC 17 * Saccharomyces boulardi (florastor) 250mg PO BID * Blood cx x1 from 10/24: positive for Reny Glabrata * Second blood cx showed no growth * As per ID, suggested replacing dialysis lines due to fungal infection * 10/26: catheter tip cx: no growth * Continue mycamine 100mg POQD, Flagyl 500mg GT Q8m Merem 500mg IV Q8 Abnormal Stress test, history of AICD, hx CAD * ASA 81mg POQD * Rosuvastatin [id number] POQHS Atrial Flutter, resolved * Cardiology Consult (Dr. Cortés) * Aspirin 81mg PO daily * c/w Eliquis 2.5mg PO bid * Eliquis held d/t Hgb 6.6 10/24 Low hemoglobin * Epoeitin asim 13619 u IV M, W, F * 10/24: Eliquis held d/t Hgb 6.6; 2uPRBC administered after dialysis * Hgb 11.2 after 2uPRBC Hypocalcemia * Calcitriol 0.25 mcg PEG daily UTI, yeast positive * 10/14 urine positive for yeast * Discontinued Diflucan 100mg/50cc NS @ 55cc/hr QD Unstageable Sacral Ulcer, Left Ear Auriclular ulcer, Right Heal Ulcer * Continue to monitor HTN, medications held until blood pressure is higher * Midodrine (proamatine) * Metoprolol 25mg PEG BID BS DM * Levemir 25 units SC Q12 * ISS * Glucose accuchecks CKD with Dialysis * Dialysis MWF via permacath * Patient received dialysis today, 10/28. * During dialysis, patient developed sinus tachycardia. continue to monitor on telemetry Prophylaxis * Pepcid 20mg POQD * Zofran 4mg IVP Q8H PRN Diet: tube feeds: Vital 1.2 initial rate 20cc/hr with goal rate 70cc/hr Patient is at goal rate Social Work Patient's new insurance does not accept LTAC. New insurance starts October 28 Currently waiting for [facility] to accept the patient when new insurance starts 12/1/17 ventilation worker to provide letter to have daughter in [facility] get a visa to come to the [place] to see her father. Comfort measures in place. DIOGENES in chart, signed DNR as of 1899 on 10/25/1710/25 Patient was made DNR/DNI by of Patient Disposition: 10/28 reached out to Mrs. Wolf, if family does want patient on dialysis: dialysis needs to be changed, if patient's family wants patient on dialysis, reached out to surgery team. As of 10/28, surgery was consulted to change permacath for dialysis. Patient received dialsysis today. During dialysis, patient developed sinus tachycardia- continue monitoring on telemetry. 10/29 Patient's family wants dialysis but does not want surgery to change permacath for dialysis Patient has a left ischial ulcer, stage III deliver 1 u PRBC with dialysis tomorrow order type and cross and obtain consent for blood Patient discussed with DR. Nagi Sanchez, DO PGY1 <Mariangel Lazar V - Last Filed: 11/03/17 18:45> Objective - Vital Signs/Intake and Output Vital Signs (last 24 hours): Temp Pulse Resp BP Pulse Ox 98.6 F 119 H 27 H 131/45 L 100 11/03/17 16:00 11/03/17 16:23 11/03/17 16:23 11/03/17 16:23 11/03/17 16:23 Intake and Output: 11/03/17 11/03/17 06:59 18:59 Intake Total 1240 Output Total 100 Balance 1140 - Medications Medications: Current Medications Ascorbic Acid (Vitamin C 500 Mg Tab) 500 mg PEG DAILY [facility] Last Admin: 11/03/17 10:42 Dose: 500 mg Aspirin (Aspirin Chewable) 81 mg PO DAILY [facility] Last Admin: 11/03/17 10:40 Dose: 81 mg Calcitriol (Rocaltrol) 0.25 mcg PEG DAILY [facility] Last Admin: 11/03/17 10:41 Dose: 0.25 mcg Calcium Acetate (Phoslo) 1,334 mg PO TIDCC [facility] Last Admin: 11/03/17 18:17 Dose: 1,334 mg Epoetin Asim (Procrit) 10,000 unit IV MWF [facility] Micafungin Sodium 100 mg/ (Sodium Chloride) 100 mls @ 100 mls/hr IV Q24H [facility] Last Admin: 11/03/17 18:02 Dose: 100 mls/hr Meropenem 500 mg/ Sodium (Chloride) 100 mls @ 100 mls/hr IVPB Q8 [facility] Last Admin: 11/03/17 14:19 Dose: 100 mls/hr Insulin Aspart (Novolog) 0 unit SC Q6 [facility] PRN Reason: Protocol Last Admin: 11/03/17 18:16 Dose: 2 unit Insulin Detemir (Levemir) 35 unit SC Q12 [facility] Last Admin: 11/03/17 10:41 Dose: 35 unit Ipratropium Sully (Atrovent) 0.5 mg IH RQ6 [facility] Last Admin: 11/03/17 13:17 Dose: 0.5 mg Loperamide HCl (Imodium) 1 mg PO Q4H PRN PRN Reason: Diarrhea Last Admin: 10/30/17 09:54 Dose: 1 mg Metoprolol Tartrate (Lopressor) 25 mg PEG BIDBS [facility] Last Admin: 10/25/17 09:58 Dose: Not Given Metoprolol Tartrate (Lopressor) 12.5 mg PO BID [facility] Last Admin: 11/03/17 18:16 Dose: 12.5 mg Metronidazole (Flagyl) 500 mg GT Q8 [facility] Last Admin: 11/03/17 14:25 Dose: 500 mg Midodrine (Proamatine) 10 mg PO TID [facility] Last Admin: 11/03/17 18:17 Dose: 10 mg Multivitamins (Hexavitamin) 1 tab PEG DAILY [facility] Last Admin: 11/03/17 10:40 Dose: 1 tab Ondansetron HCl (Zofran Inj) 4 mg IVP Q8H PRN PRN Reason: Nausea/Vomiting Pantoprazole Sodium (Protonix Inj) 40 mg IVP DAILY [facility] Last Admin: 11/03/17 10:41 Dose: 40 mg Rosuvastatin Calcium (Crestor) 10 mg PO HS [facility] Last Admin: 11/02/17 22:54 Dose: 10 mg Saccharomyces Boulardii (Florastor) 250 mg PO BID [facility] Last Admin: 11/03/17 18:16 Dose: 250 mg Vitamin A (Vitamin A & D Oint Ud Foilpak) 0.5 ea TOP Q1H PRN PRN Reason: Dry skin Last Admin: 11/01/17 09:23 Dose: 0.5 ea - Labs Labs: 11/03/17 06:20 11/03/17 06:20 PT 13.4 SECONDS (9.7-12.2) H 10/14/17 16:30 INR 1.2 10/14/17 16:30 APTT 28 SECONDS (21-34) 10/14/17 16:30 Attending/Attestation - Attestation I have personally seen and examined this patient.: Yes I have fully participated in the care of the patient.: Yes I have reviewed all pertinent clinical information, including history, physical exam and plan: Yes Notes (Text): Patient seen, examined and case discussed with day-time resident. Will need to monitor H/H slowly downtrending; may need PRBC transfusion during dialysis for Tuesday tomorrow. Pending placement given patient's new insurance status. Discussed with case management, patient's insurance is not active. Note discussed with nurse, Licha at bedside, patient has worsening of both his sacral wound which appears necrotic and also extending over the ischial tuberosities these wounds. The bone is not exposed over the ischial tuberosities. Spoke with the nurse who will call wound care nurse for new recommendation. Patient's white count is improving and appearing to understand some commands. However, given his sacral wound and the location of wounds over ischial tuberosity he remains at risk. I had spoken with yesterday who had noted no debridgement given patient's cardiac risk. Will continue to monitor patient' s wound. Assessment/Plans 1). Hx Acute Respiratory Failure/ARDS/Cadiac Arrest/NSTEMI * Dr Cortés (cardiology) on the case-->help appreciated * Dr. Mena (pulmonary) on the case-->help appreciated * Code Blue on 08/10: asystole, cardiopulmonary resuscitative measures initiated , requiring 3 epis, bicarbonate, ROSC achieved and intubated and brought to the ICU. Patient has had multiple for hypotension. 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 * Atrovent 0.5mg Inhaled RQ6H * Aspirin 81mg PO daily * Lopressor 25mg PO BID with holding parameters * Midodrine 10mg PO TID * Crestor 10mg PO qHS 2). Hx Abnormal Stress Test/AICD/CAD * Dr Cortés (cardiology) on the case-->help appreciated * Dr. Mena (pulmonary) on the case-->help appreciated * Code Blue on 08/10: asystole, cardiopulmonary resuscitative measures initiated , requiring 3 epis, bicarbonate, ROSC achieved and intubated and brought to the ICU. Patient has had multiple for hypotension. 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 * Aspirin 81mg PO daily * Lopressor 25mg PO BID with holding parameters * Midodrine 10mg PO TID * Crestor 10mg PO qHS 3). Hx Atrial Flutter: * stopped Eliquis 10/24/17 secondary significant drop in HgB. Heart Rate is elevated. Ordered for Lopressor 5mg iVX1 on 10/31 * Lopressor 25mg PO BID with holding parameters 4). 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 Leukocytosis: Improving * Infectious Disease (Dr. Lawrence) on the case-->help appreciated * Blood Culture 10/22/17 is finalized as negative. * Sputum culture 10/14/17 is negative. * Stool cultures 10/20/17 are negative. 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 * Right Arm Midline Tip 10/06/17 culture is negative and removed. Midline Tip Culture 10/26/17 is negative. * Blood Cultures 10/28/17 are negative to date. * Iv ABx: Cefepime (10/12/17 through 10/24/17), Aztreonam (10/13/17 through )), Diflucan (10/14/17 through 10/26/17). * Currently on Meropenem 500 mg IV Q8H (10/28/17), Micofungin 100 mg IV Q24H () Flagyl (10/16/17). * I spoke with 11/02, she does not want Permacath replaced given cardiac risk for operation/anesthesia. 6). Hx Pneumonia * Currently on Meropenem 500 mg IV Q8H (10/28/17), Micofungin 100 mg IV Q24H () Flagyl (10/16/17). 7). Hx HTN: * Lopressor 25mg PEG BID with holding parameters 8). Hx CKD on HD . * Family would like to continue HD through current Permacath and declined surgical intervention to change catheter (due to the Blood Culture 10/24/17 being positive for Reny glabrata) as recommended by Vascular Surgery and Infectious Disease. * I discussed with today at bedside 11/02, she continues to deny the exchange secondary to cardiac risk. 9). Hx DM: * Levemir 35 units [id number] * monitor [id number] * HgbA1c 8.4 10). Hx HLD * Crestor 10mg PO qHS 11). Hx Anemia: * Eliquis stopped 10/24/17 and was transfused 2 units PRBCs. * CBC morning 10/25/17 dropped from 11.2 post trasfusion 10/24/17 to 10.2 morning 10/25/17. * Stool Occult is Positive and GI Dr. Dsouza was reconsulted however no further workup recommended in light of patient current status. * Procrit 10,000 units -- * Patient's blood is slowly decreasing; will likely need 1 unit of PRBC tomorrow during dialysis 12). Hx DVT * Eliquis stopped 10/24/17 given positive bloody stool * Repeat dopplers 08/09/17 are negative for DVT 13). Hx UTI: * Yeast on culture 10/24/17. He is currently on Micofungin 100 mg IV Q24H. He may be colonized with this. 14). Hx Alzheimer's Dementia * CT head w/o contrast (08/10/17):acute os subacute lacune infarct is not excluded in the left basal ganglia inferiorly with definitive chronic lacune identified in the right basal ganglia superiorly. No acute or subacute lobar brain infarction is appreciable by standard CT criteria. Mild age-related neuro * CT Head w/o contrast (10/14/17): no intracranial mass, hemorrhage, or evidence of acute infarct. 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 Old right external capsule ischemic change. Age related atrophy and chronic microvascular ischemic change * Note: patient does listen to his at bedside, follows simple commands 15). Hx Sacral Ulcer: * General surgery (Dr. Forbes) on board-->help appreciated * Bone Scan performed 09/17/17 to check for Osteomyelitis at the Sacrum: negative for osteomyelitis * currently on MediHoney daily, family has declined further debridement by surgery. Wound care on board 16). Hx Right Heal Ulcer * Podiatry (Dr. Lundberg) on board-->help appreciated * Prevalon boots * improved on exam and area of necrosis/unstageable area is decreased. Santyl and Optifoam daily. Pravolon boots 17). Hx Elevated LFTs * normalized; patient is on statin and Micafungin 18). Diarrhea: * on Rectal Seal and producing dark brown/black stools that are watery. Stool Studies 10/20/17 are negative * On loperamide PRn 19). Hx Hyponatremia: * lowered today 20). Hx PEG Tube: * Vital 1.5 at 50 ml/hour 21). Hx Hypocalcemia: * Calcitriol 22). Prophylactic Measures: * Vitamin C, Dulcolax PRN, Pepcid, MVI, Zofran PRN, Florastor * Started on dialysis 08/15/17 * s/p Right Chest Permcath 08/22/17 * S/P Tracheostomy 08/22/17 * S/P Peg tube placement 08/25/17 * s/p insertion of right posterior chest tube 08/19-->removed 08/24/17 * Passy Flex Trach placed 09/15/17 * s/p new mid line (left upper extremity) 10/26/17 prior mid line removed * (Jovita Serrano): * Patient is now: DNR
[2017-11-03] MEDS ORDERED: Epoetin Alfa 40000 UNIT/ml Inj IV ONE (08:19)
[2017-11-03] MEDS ORDERED: Epoetin Alfa Dialysis 40000 UNIT/ml Inj IV ONE (08:24)
--- NOTE | 2017-11-03 09:22 | CP.PCM.PN ---
Subjective - Date & Time of Evaluation Date of Evaluation: 11/03/17 Time of Evaluation: 09:20 - Subjective Subjective: s/p dialysis 11/02 UF 800ml using same dialysis cath same confusional state Objective - Vital Signs/Intake and Output Vital Signs (last 24 hours): Temp Pulse Resp BP Pulse Ox 98.5 F 133 H 20 135/54 L 100 11/03/17 04:00 11/03/17 04:06 11/03/17 04:06 11/03/17 04:06 11/03/17 04:06 Intake and Output: 11/03/17 11/03/17 06:59 18:59 Intake Total 1240 Output Total 100 Balance 1140 - Medications Medications: Current Medications Ascorbic Acid (Vitamin C 500 Mg Tab) 500 mg PEG DAILY [facility] Last Admin: 11/02/17 13:36 Dose: 500 mg Aspirin (Aspirin Chewable) 81 mg PO DAILY [facility] Last Admin: 11/02/17 13:31 Dose: 81 mg Calcitriol (Rocaltrol) 0.25 mcg PEG DAILY [facility] Last Admin: 11/02/17 14:41 Dose: 0.25 mcg Calcium Acetate (Phoslo) 1,334 mg PO TIDCC [facility] Last Admin: 11/03/17 07:49 Dose: 1,334 mg Epoetin [place] (Procrit) 10,000 unit IV MWF [facility] Micafungin Sodium 100 mg/ (Sodium Chloride) 100 mls @ 100 mls/hr IV Q24H [facility] Last Admin: 11/02/17 18:49 Dose: 100 mls/hr Meropenem 500 mg/ Sodium (Chloride) 100 mls @ 100 mls/hr IVPB Q8 [facility] Last Admin: 11/03/17 07:02 Dose: 100 mls/hr Insulin Aspart (Novolog) 0 unit SC Q6 [facility] PRN Reason: Protocol Last Admin: 11/03/17 06:00 Dose: 3 unit Insulin Detemir (Levemir) 35 unit SC Q12 [facility] Last Admin: 11/02/17 22:55 Dose: 35 unit Ipratropium [place] (Atrovent) 0.5 mg IH RQ6 [facility] Last Admin: 11/03/17 07:14 Dose: 0.5 mg Loperamide HCl (Imodium) 1 mg PO Q4H PRN PRN Reason: Diarrhea Last Admin: 10/30/17 09:54 Dose: 1 mg Metoprolol Tartrate (Lopressor) 25 mg PEG BIDBS [facility] Last Admin: 10/25/17 09:58 Dose: Not Given Metronidazole (Flagyl) 500 mg GT Q8 [facility] Last Admin: 11/03/17 05:59 Dose: 500 mg Midodrine (Proamatine) 10 mg PO TID [facility] Last Admin: 11/02/17 17:30 Dose: 10 mg Multivitamins (Hexavitamin) 1 tab PEG DAILY [facility] Last Admin: 11/02/17 13:33 Dose: 1 tab Ondansetron HCl (Zofran Inj) 4 mg IVP Q8H PRN PRN Reason: Nausea/Vomiting Pantoprazole Sodium (Protonix Inj) 40 mg IVP DAILY [facility] Last Admin: 11/02/17 13:35 Dose: 40 mg Rosuvastatin Calcium (Crestor) 10 mg PO HS [facility] Last Admin: 11/02/17 22:54 Dose: 10 mg Saccharomyces Boulardii (Florastor) 250 mg PO BID [facility] Last Admin: 11/02/17 17:30 Dose: 250 mg Vitamin A (Vitamin A & D Oint Ud Foilpak) 0.5 ea TOP Q1H PRN PRN Reason: Dry skin Last Admin: 11/01/17 09:23 Dose: 0.5 ea - Labs Labs: 11/03/17 06:20 11/03/17 06:20 PT 13.4 SECONDS (9.7-12.2) H 10/14/17 16:30 INR 1.2 10/14/17 16:30 APTT 28 SECONDS (21-34) 10/14/17 16:30 - Constitutional Appears: No Acute Distress, Chronically Ill - Head Exam Head Exam: ATRAUMATIC, NORMAL INSPECTION - Eye Exam Eye Exam: EOMI - Neck Exam Neck Exam: Normal Inspection. absent: Tenderness - Respiratory Exam Respiratory Exam: Clear to Ausculation Bilateral, NORMAL BREATHING PATTERN - Cardiovascular Exam Cardiovascular Exam: Tachycardia, Irregular Rhythm - GI/Abdominal Exam GI & Abdominal Exam: Soft. absent: Tenderness - Extremities Exam Extremities Exam: Normal Inspection. absent: Tenderness - Neurological Exam Neurological Exam: Altered, Motor Sensory Deficit - Skin Skin Exam: Dry, Warm Assessment and Plan (1) Acute on chronic renal failure Status: Resolved (2) CAD (coronary artery disease) Status: Chronic (3) CHF exacerbation Status: Chronic (4) Type 2 diabetes mellitus with diabetic nephropathy Status: Acute (5) Cardiorenal disease Status: Acute (6) ESRD (end stage renal disease) Status: Acute (7) Sacral decubitus ulcer Status: Acute - Assessment and Plan (Free Text) Plan: Same dialysis MWF supportive care as per family wishes IV antimicrobials
[2017-11-03] MEDS: Multiple Vitamins Tab PEG SCH (10:40)
[2017-11-03] MEDS: Saccharomyces Boulardi 250 mg Cap PO SCH ×2 (10:40→18:16)
[2017-11-03] MEDS: Insulin Detemir 100 units/ml Vial (Levemir) SC SCH ×2 (10:41→22:41)
[2017-11-03] MEDS ORDERED: Digoxin 500 mcg/2ml (0.5 mg/2ml) Inj IVP ONE (11:30)
[2017-11-03 12:36] VITALS: PULSE 127
[2017-11-03] MEDS: Micafungin 100 MG in Sodium Chloride 0.9% 100 ML IV SCH (18:02)
[2017-11-03] MEDS: Loperamide Hydrochloride 1 mg/5 ml Cup PO PRN (22:40)
[2017-11-03] MEDS: Vitamins A & D Oint UD Foilpak TOP PRN (22:40)
--- NOTE | 2017-11-03 23:28 | CP.PCM.PN ---
Subjective - Date & Time of Evaluation Date of Evaluation: 11/03/17 Time of Evaluation: 07:50 - Subjective Subjective: Patient seen and evaluated Awake but confused On Mechanical ventilation Objective - Vital Signs/Intake and Output Vital Signs (last 24 hours): Temp Pulse Resp BP Pulse Ox 98.6 F 119 H 27 H 131/45 L 100 11/03/17 16:00 11/03/17 16:23 11/03/17 16:23 11/03/17 16:23 11/03/17 16:23 Intake and Output: 11/03/17 11/04/17 18:59 06:59 Intake Total 1240 1040 Output Total 100 0 Balance 1140 1040 - Medications Medications: Current Medications Ascorbic Acid (Vitamin C 500 Mg Tab) 500 mg PEG DAILY [facility] Last Admin: 11/03/17 10:42 Dose: 500 mg Aspirin (Aspirin Chewable) 81 mg PO DAILY [facility] Last Admin: 11/03/17 10:40 Dose: 81 mg Calcitriol (Rocaltrol) 0.25 mcg PEG DAILY [facility] Last Admin: 11/03/17 10:41 Dose: 0.25 mcg Calcium Acetate (Phoslo) 1,334 mg PO TIDCC [facility] Last Admin: 11/03/17 18:17 Dose: 1,334 mg Epoetin [place] (Procrit) 10,000 unit IV MWF [facility] Micafungin Sodium 100 mg/ (Sodium Chloride) 100 mls @ 100 mls/hr IV Q24H [facility] Last Admin: 11/03/17 18:02 Dose: 100 mls/hr Meropenem 500 mg/ Sodium (Chloride) 100 mls @ 100 mls/hr IVPB Q8 [facility] Last Admin: 11/03/17 22:40 Dose: 100 mls/hr Insulin Aspart (Novolog) 0 unit SC Q6 [facility] PRN Reason: Protocol Last Admin: 11/03/17 18:16 Dose: 2 unit Insulin Detemir (Levemir) 35 unit SC Q12 [facility] Last Admin: 11/03/17 22:41 Dose: 35 unit Ipratropium [place] (Atrovent) 0.5 mg IH RQ6 [facility] Last Admin: 11/03/17 20:50 Dose: 0.5 mg Loperamide HCl (Imodium) 1 mg PO Q4H PRN PRN Reason: Diarrhea Last Admin: 11/03/17 22:40 Dose: 1 mg Metoprolol Tartrate (Lopressor) 25 mg PEG BIDBS [facility] Last Admin: 10/25/17 09:58 Dose: Not Given Metoprolol Tartrate (Lopressor) 12.5 mg PO BID [facility] Last Admin: 11/03/17 18:16 Dose: 12.5 mg Metronidazole (Flagyl) 500 mg GT Q8 [facility] Last Admin: 11/03/17 22:40 Dose: 500 mg Midodrine (Proamatine) 10 mg PO TID [facility] Last Admin: 11/03/17 18:17 Dose: 10 mg Multivitamins (Hexavitamin) 1 tab PEG DAILY [facility] Last Admin: 11/03/17 10:40 Dose: 1 tab Ondansetron HCl (Zofran Inj) 4 mg IVP Q8H PRN PRN Reason: Nausea/Vomiting Pantoprazole Sodium (Protonix Inj) 40 mg IVP DAILY [facility] Last Admin: 11/03/17 10:41 Dose: 40 mg Rosuvastatin Calcium (Crestor) 10 mg PO HS [facility] Last Admin: 11/03/17 22:40 Dose: 10 mg Saccharomyces Boulardii (Florastor) 250 mg PO BID [facility] Last Admin: 11/03/17 18:16 Dose: 250 mg Vitamin A (Vitamin A & D Oint Ud Foilpak) 0.5 ea TOP Q1H PRN PRN Reason: Dry skin Last Admin: 11/03/17 22:40 Dose: 0.5 ea - Labs Labs: 11/03/17 06:20 11/03/17 06:20 PT 13.4 SECONDS (9.7-12.2) H 10/14/17 16:30 INR 1.2 10/14/17 16:30 APTT 28 SECONDS (21-34) 10/14/17 16:30
[2017-11-04] MEDS: (Novolog) Insulin Aspart, Recombinant 100 u/ml 10 ml vial SC SCH ×4 (00:43→17:34)
[2017-11-04] MEDS: Ipratropium 0.02% Inhal Soln (0.5 mg/2.5 ml) UD IH SCH ×4 (01:45→19:36)
[2017-11-04] MEDS: Meropenem 500 MG in Sodium Chloride 0.9% 100 ML IVPB SCH (05:30)
[2017-11-04 06:41] LABS: BASO # 0.2 K/uL (0.0-0.2); BASO % 1.1 % (0.0-2.0); EOS # 0.3 K/uL (0.0-0.7); EOS % 1.9 % (0.0-4.0); HEMATOCRIT 27.7 % (35.0-51.0); LYMPH # 2.2 K/uL (1.0-4.3); LYMPH % 14.3 % (20.0-40.0); MEAN CELL VOLUME 94.3 fL (80.0-94.0); MEAN CORPUSCULAR HEMOGLOBIN 30.3 pg (27.0-31.0); MEAN CORPUSCULAR HGB CONC 32.2 g/dL (33.0-37.0); MEAN PLATELET VOLUME 8.1 fL (7.2-11.7); MONO # 0.8 K/uL (0.0-0.8); MONO % 5.6 % (0.0-10.0); NRBC % 0.1 % (0.0-2.0); RED CELL DISTRIBUTION WIDTH 25.7 % (11.5-14.5); WHITE BLOOD COUNT 15.2 K/uL (4.8-10.8)
[2017-11-04 07:11] LABS: ALB/GLOB RATIO 0.9 (1.0-2.1); BILIRUBIN,TOTAL 0.5 mg/dL (0.2-1.3); CALCIUM 7.5 mg/dl (8.6-10.4); POTASSIUM 4.7 mmol/L (3.6-5.2); TOTAL PROTEIN 5.5 g/dL (6.3-8.3)
--- NOTE | 2017-11-04 08:06 | CP.PCM.PN ---
Subjective - Date & Time of Evaluation Date of Evaluation: 11/04/17 Time of Evaluation: 08:06 - Subjective Subjective: Progress Note for Dr. Lazar Patient seen and examined at bedside. Patient nodded his head to one question and lifted left arm when asked. Patient unable to verbalize, but at intermittent times appears to understand and observe. Per RN, patient's midline is leaking and it's hard to draw blood. Requests blood to be drawn during dialysis for labs. Objective - Vital Signs/Intake and Output Vital Signs (last 24 hours): Temp Pulse Resp BP Pulse Ox 98.3 F 117 H 24 125/49 L 97 11/04/17 04:00 11/04/17 04:00 11/04/17 04:00 11/04/17 05:53 11/04/17 04:00 Intake and Output: 11/04/17 11/04/17 06:59 18:59 Intake Total 1040 1240 Output Total 0 100 Balance 1040 1140 - Medications Medications: Current Medications Ascorbic Acid (Vitamin C 500 Mg Tab) 500 mg PEG DAILY [facility] Last Admin: 11/03/17 10:42 Dose: 500 mg Aspirin (Aspirin Chewable) 81 mg PO DAILY [facility] Last Admin: 11/03/17 10:40 Dose: 81 mg Calcitriol (Rocaltrol) 0.25 mcg PEG DAILY [facility] Last Admin: 11/03/17 10:41 Dose: 0.25 mcg Calcium Acetate (Phoslo) 1,334 mg PO TIDCC [facility] Last Admin: 11/03/17 18:17 Dose: 1,334 mg Epoetin [place] (Procrit) 10,000 unit IV MWF [facility] Micafungin Sodium 100 mg/ (Sodium Chloride) 100 mls @ 100 mls/hr IV Q24H [facility] Last Admin: 11/03/17 18:02 Dose: 100 mls/hr Meropenem 500 mg/ Sodium (Chloride) 100 mls @ 100 mls/hr IVPB Q8 [facility] Last Admin: 11/04/17 05:30 Dose: 100 mls/hr Insulin Aspart (Novolog) 0 unit SC Q6 [facility] PRN Reason: Protocol Last Admin: 11/04/17 06:46 Dose: 1 unit Insulin Detemir (Levemir) 35 unit SC Q12 [facility] Last Admin: 11/03/17 22:41 Dose: 35 unit Ipratropium [place] (Atrovent) 0.5 mg IH RQ6 [facility] Last Admin: 11/04/17 07:05 Dose: 0.5 mg Loperamide HCl (Imodium) 1 mg PO Q4H PRN PRN Reason: Diarrhea Last Admin: 11/03/17 22:40 Dose: 1 mg Metoprolol Tartrate (Lopressor) 25 mg PEG BIDBS [facility] Last Admin: 10/25/17 09:58 Dose: Not Given Metoprolol Tartrate (Lopressor) 12.5 mg PO BID [facility] Metronidazole (Flagyl) 500 mg GT Q8 [facility] Last Admin: 11/04/17 05:30 Dose: 500 mg Midodrine (Proamatine) 10 mg PO TID [facility] Last Admin: 11/03/17 18:17 Dose: 10 mg Multivitamins (Hexavitamin) 1 tab PEG DAILY [facility] Last Admin: 11/03/17 10:40 Dose: 1 tab Ondansetron HCl (Zofran Inj) 4 mg IVP Q8H PRN PRN Reason: Nausea/Vomiting Pantoprazole Sodium (Protonix Inj) 40 mg IVP DAILY [facility] Last Admin: 11/03/17 10:41 Dose: 40 mg Rosuvastatin Calcium (Crestor) 10 mg PO HS [facility] Last Admin: 11/03/17 22:40 Dose: 10 mg Saccharomyces Boulardii (Florastor) 250 mg PO BID [facility] Last Admin: 11/03/17 18:16 Dose: 250 mg Vitamin A (Vitamin A & D Oint Ud Foilpak) 0.5 ea TOP Q1H PRN PRN Reason: Dry skin Last Admin: 11/03/17 22:40 Dose: 0.5 ea - Labs Labs: 11/04/17 06:37 11/04/17 06:37 PT 13.4 SECONDS (9.7-12.2) H 10/14/17 16:30 INR 1.2 10/14/17 16:30 APTT 28 SECONDS (21-34) 10/14/17 16:30 - Constitutional Appears: Non-toxic, No Acute Distress, Other (stable) - Head Exam Head Exam: ATRAUMATIC, NORMAL INSPECTION (minor ulcer on left auricle), NORMOCEPHALIC - Eye Exam Eye Exam: EOMI, Normal appearance - ENT Exam ENT Exam: Mucous Membranes Moist - Neck Exam Neck Exam: Full ROM - Respiratory Exam Respiratory Exam: absent: Accessory Muscle Use - Cardiovascular Exam Cardiovascular Exam: REGULAR RHYTHM, +S1, +S2 - GI/Abdominal Exam GI & Abdominal Exam: Distended, Soft. absent: Tenderness Additional comments: PEG tube in place. - Extremities Exam Extremities Exam: absent: Full ROM, Joint Swelling, Pedal Edema - Neurological Exam Neurological Exam: Alert, Awake - Psychiatric Exam Psychiatric exam: Normal Affect, Normal Mood - Skin Skin Exam: Dry. absent: Intact - Additional Findings Additional findings: sacral ulcer ulcers on lower extremity with optifoam dressing. Assessment and Plan - Assessment and Plan (Free Text) Assessment: 77M with ARDS s/p cardiac arrest, with pulmonary edema and NSTEMI * Ipratropium 0.02% (atrovent) 0.5mg IH RQ6H * 10/24 CXR: questionable interval atelectasis or infiltrate in medial right base * 10/23 mid bibasilar atelectasis. questionable small left-sided effusion * CXR left lobe atelectasis v pna * 10/26 right midline removed, tip of midline sent for culture 10/26, new midline placed on left arm 10/26 * 10/[address] Lawrence: fungal infection in blood, lines should be changed. * 10/[address] Lawrence: fungal infection in blood, lines should be changed. * reach out to Mrs. Wolf, if family does want patient on dialysis: dialysis needs to be changed * f/u echo to rule out vegetations * 10/28: Family wants patient to receive dialysis; consulted surgery for permacath replacement. * Surgery consulted, Dr. Forbes * Patient received dialysis today; developed sinus tachycardia during; continue to monitor on telemetry. * 10/29 Digoxin 0.25 mg IV was given to patient for the sinus tachycardia. * ECHO: LV function markedly reduced, diffuse hypokinesis; septum is akinetic; LV EF 20%; Trace AR. * Continue mycamine 100mg POQD, merrem 500 POQD, flagy 500mg GT Q8 Constipation, resolved * Dulcolax 10mg [place] Once PRN 10/21, patient had a dark brown BM yesterday, none today per nursing staff * Patient is having diarrhea in the Flexseal. Cultures were taken, currently negative * GI Dr. Wills consulted: does not feel that it would be in the best interest of the patient at this time to do any invasive procedure or examination. Diarrhea * One dose of immodium given overnight Hypotensive, resolving, stable * Metoprolol on hold HTN * 10/31 Lopressor 5mg once was given today for high blood pressure Leukocytosis * current cultures negative (blood, stool and wound) * 10/14 urine culture: yeast * 10/14 blood culture is positive for yeast * f/u stool culture from rectoseal from 10/23 * 10/26 WBC 25.5 * 10/27 WBC 17 * Saccharomyces boulardi (florastor) 250mg PO BID * Blood cx x1 from 10/24: positive for Reny Glabrata * Second blood cx showed no growth * As per ID, suggested replacing dialysis lines due to fungal infection * 10/26: catheter tip cx: no growth * Continue mycamine 100mg POQD, Flagyl 500mg GT Q8m Merem 500mg IV Q8 Abnormal Stress test, history of AICD, hx CAD * ASA 81mg POQD * Rosuvastatin [id number] POQHS Atrial Flutter, resolved * Cardiology Consult (Dr. Cortés) * Aspirin 81mg PO daily * c/w Eliquis 2.5mg PO bid * Eliquis held d/t Hgb 6.6 10/24 Low hemoglobin * Epoeitin asim 23521 u IV M, W, F * 10/24: Eliquis held d/t Hgb 6.6; 2uPRBC administered after dialysis * Hgb 11.2 after 2uPRBC Hypocalcemia * Calcitriol 0.25 mcg PEG daily UTI, yeast positive * 10/14 urine positive for yeast * Discontinued Diflucan 100mg/50cc NS @ 55cc/hr QD Unstageable Sacral Ulcer, Left Ear Auriclular ulcer, Right Heal Ulcer * Continue to monitor HTN, medications held until blood pressure is higher * Midodrine (proamatine) * Metoprolol 25mg PEG BID [facility] * Levemir 25 units SC Q12 * ISS * Glucose accuchecks CKD with Dialysis * Dialysis MWF via permacath * Patient received dialysis today, 10/28. * During dialysis, patient developed sinus tachycardia. continue to monitor on telemetry Prophylaxis * Pepcid 20mg POQD * Zofran 4mg IVP Q8H PRN Diet: tube feeds: Vital 1.2 initial rate 20cc/hr with goal rate 70cc/hr Patient is at goal rate Social Work Patient's new insurance does not accept LTAC. New insurance starts October 28 Currently waiting for [facility] to accept the patient when new insurance starts 10/28/17 idea worker to provide letter to have daughter in [place] get a visa to come to the [place] to see her father. Comfort measures in place. POLST in chart, signed DNR as of 1899 on 10/25/1710/25 Patient was made DNR/DNI by of Patient Disposition: 10/28 reached out to Mrs. Wolf, if family does want patient on dialysis: dialysis needs to be changed, if patient's family wants patient on dialysis, reached out to surgery team. As of 10/28, surgery was consulted to change permacath for dialysis. Patient received dialsysis today. During dialysis, patient developed sinus tachycardia- continue monitoring on telemetry. 10/29 Patient's family wants dialysis but does not want surgery to change permacath for dialysis Patient has a left ischial ulcer, stage III 11/04 1 u PRBC delivered with dialysis today Patient discussed with DR. Nagi Sanchez, DO PGY1
[2017-11-04] MEDS: Saccharomyces Boulardi 250 mg Cap PO SCH ×2 (10:19→18:04)
[2017-11-04] MEDS: Multiple Vitamins Tab PEG SCH (10:19)
[2017-11-04] MEDS: Vitamins A & D Oint UD Foilpak TOP PRN (10:20)
[2017-11-04] MEDS: Insulin Detemir 100 units/ml Vial (Levemir) SC SCH ×2 (10:21→21:10)
[2017-11-04] MEDS: Epoetin Alfa 10,000 unit/ml Dialysis IV SCH (12:54)
--- NOTE | 2017-11-04 13:18 | CP.PCM.PN ---
Subjective - Date & Time of Evaluation Date of Evaluation: 11/04/17 Time of Evaluation: 13:15 - Subjective Subjective: Seen on dialysis; tolerating treatment so far s/p blood transfusion 1 unit prbcs to UF 1000ml appears same on treatment for yeast line bacteremia Objective - Vital Signs/Intake and Output Vital Signs (last 24 hours): Temp Pulse Resp BP Pulse Ox 98.4 F 122 H 29 H 111/58 L 100 11/04/17 12:00 11/04/17 12:49 11/04/17 12:49 11/04/17 12:49 11/04/17 12:49 Intake and Output: 11/04/17 11/04/17 06:59 18:59 Intake Total 1040 1290 Output Total 0 100 Balance 1040 1190 - Medications Medications: Current Medications Ascorbic Acid (Vitamin C 500 Mg Tab) 500 mg PEG DAILY [facility] Last Admin: 11/04/17 10:19 Dose: 500 mg Aspirin (Aspirin Chewable) 81 mg PO DAILY [facility] Last Admin: 11/04/17 10:19 Dose: 81 mg Calcitriol (Rocaltrol) 0.25 mcg PEG DAILY [facility] Last Admin: 11/04/17 10:19 Dose: 0.25 mcg Calcium Acetate (Phoslo) 1,334 mg PO TIDCC [facility] Last Admin: 11/04/17 08:08 Dose: 1,334 mg Epoetin [place] (Procrit) 10,000 unit IV MWF [facility] Last Admin: 11/04/17 12:54 Dose: 10,000 unit Micafungin Sodium 100 mg/ (Sodium Chloride) 100 mls @ 100 mls/hr IV Q24H [facility] Last Admin: 11/03/17 18:02 Dose: 100 mls/hr Meropenem/Sodium Chloride (Meropenem 500 Mg/Ns 50 Ml) 500 mg in 50 mls @ 50 mls /hr IV Q8 [facility] Insulin Aspart (Novolog) 0 unit SC Q6 [facility] PRN Reason: Protocol Last Admin: 11/04/17 12:00 Dose: Not Given Insulin Detemir (Levemir) 35 unit SC Q12 [facility] Last Admin: 11/04/17 10:21 Dose: 35 unit Ipratropium [place] (Atrovent) 0.5 mg IH RQ6 [facility] Last Admin: 11/04/17 07:05 Dose: 0.5 mg Loperamide HCl (Imodium) 1 mg PO Q4H PRN PRN Reason: Diarrhea Last Admin: 11/03/17 22:40 Dose: 1 mg Metoprolol Tartrate (Lopressor) 25 mg PEG BIDBS [facility] Last Admin: 10/25/17 09:58 Dose: Not Given Metoprolol Tartrate (Lopressor) 12.5 mg PO BID [facility] Last Admin: 11/04/17 10:19 Dose: 12.5 mg Metronidazole (Flagyl) 500 mg GT Q8 [facility] Last Admin: 11/04/17 05:30 Dose: 500 mg Midodrine (Proamatine) 10 mg PO TID [facility] Last Admin: 11/04/17 10:19 Dose: 10 mg Multivitamins (Hexavitamin) 1 tab PEG DAILY [facility] Last Admin: 11/04/17 10:19 Dose: 1 tab Ondansetron HCl (Zofran Inj) 4 mg IVP Q8H PRN PRN Reason: Nausea/Vomiting Pantoprazole Sodium (Protonix Inj) 40 mg IVP DAILY [facility] Last Admin: 11/04/17 10:20 Dose: 40 mg Rosuvastatin Calcium (Crestor) 10 mg PO HS [facility] Last Admin: 11/03/17 22:40 Dose: 10 mg Saccharomyces Boulardii (Florastor) 250 mg PO BID [facility] Last Admin: 11/04/17 10:19 Dose: 250 mg Vitamin A (Vitamin A & D Oint Ud Foilpak) 0.5 ea TOP Q1H PRN PRN Reason: Dry skin Last Admin: 11/04/17 10:20 Dose: 0.5 ea - Labs Labs: 11/04/17 06:37 11/04/17 06:37 PT 13.4 SECONDS (9.7-12.2) H 10/14/17 16:30 INR 1.2 10/14/17 16:30 APTT 28 SECONDS (21-34) 10/14/17 16:30 - Constitutional Appears: No Acute Distress, Chronically Ill - Head Exam Head Exam: ATRAUMATIC, NORMAL INSPECTION - Eye Exam Eye Exam: EOMI - Neck Exam Neck Exam: Normal Inspection. absent: Tenderness - Respiratory Exam Respiratory Exam: Rhonchi, Respiratory Distress - Cardiovascular Exam Cardiovascular Exam: Tachycardia, Irregular Rhythm - GI/Abdominal Exam GI & Abdominal Exam: Soft. absent: Tenderness - Extremities Exam Extremities Exam: Normal Inspection. absent: Tenderness - Neurological Exam Neurological Exam: Awake, Motor Sensory Deficit - Skin Skin Exam: Dry, Warm Assessment and Plan (1) Acute on chronic renal failure Status: Resolved (2) CAD (coronary artery disease) Status: Chronic (3) CHF exacerbation Status: Chronic (4) Type 2 diabetes mellitus with diabetic nephropathy Status: Acute (5) Cardiorenal disease Status: Acute (6) ESRD (end stage renal disease) Status: Acute (7) Sacral decubitus ulcer Status: Acute - Assessment and Plan (Free Text) Plan: UF as tolerated continue antimicrobials dialysis MWF
[2017-11-04] MEDS: MEROPENEM 500 MG in NS 500 MG/50 ML BAG IV SCH ×2 (14:17→21:10)
[2017-11-04] MEDS: Micafungin 100 MG in Sodium Chloride 0.9% 100 ML IV SCH (18:04)
[2017-11-04] MEDS: Loperamide Hydrochloride 1 mg/5 ml Cup PO PRN (21:10)
--- NOTE | 2017-11-04 22:13 | CP.PCM.PN ---
Subjective - Date & Time of Evaluation Date of Evaluation: 11/04/17 Time of Evaluation: 04:00 - Subjective Subjective: dictated Objective - Vital Signs/Intake and Output Vital Signs (last 24 hours): Temp Pulse Resp BP Pulse Ox 98.1 F 106 H 20 123/54 L 100 11/04/17 20:00 11/04/17 20:01 11/04/17 20:01 11/04/17 20:01 11/04/17 20:01 Intake and Output: 11/04/17 11/05/17 18:59 06:59 Intake Total 2630 Output Total 200 Balance 2430 - Medications Medications: Current Medications Ascorbic Acid (Vitamin C 500 Mg Tab) 500 mg PEG DAILY [facility] Last Admin: 11/04/17 10:19 Dose: 500 mg Aspirin (Aspirin Chewable) 81 mg PO DAILY [facility] Last Admin: 11/04/17 10:19 Dose: 81 mg Calcitriol (Rocaltrol) 0.25 mcg PEG DAILY [facility] Last Admin: 11/04/17 10:19 Dose: 0.25 mcg Calcium Acetate (Phoslo) 1,334 mg PO TIDCC [facility] Last Admin: 11/04/17 18:04 Dose: 1,334 mg Epoetin Chen[place] (Procrit) 10,000 unit IV MWF [facility] Last Admin: 11/04/17 12:54 Dose: 10,000 unit Micafungin Sodium 100 mg/ (Sodium Chloride) 100 mls @ 100 mls/hr IV Q24H [facility] Last Admin: 11/04/17 18:04 Dose: 100 mls/hr Meropenem/Sodium Chloride (Meropenem 500 Mg/Ns 50 Ml) 500 mg in 50 mls @ 50 mls /hr IV Q8 [facility] Last Admin: 11/04/17 21:10 Dose: 50 mls/hr Insulin Aspart (Novolog) 0 unit SC Q6 [facility] PRN Reason: Protocol Last Admin: 11/04/17 17:34 Dose: Not Given Insulin Detemir (Levemir) 35 unit SC Q12 [facility] Last Admin: 11/04/17 21:10 Dose: 35 unit Ipratropium [place] (Atrovent) 0.5 mg IH RQ6 [facility] Last Admin: 11/04/17 19:36 Dose: 0.5 mg Loperamide HCl (Imodium) 1 mg PO Q4H PRN PRN Reason: Diarrhea Last Admin: 11/04/17 21:10 Dose: 1 mg Metoprolol Tartrate (Lopressor) 25 mg PEG BIDBS [facility] Last Admin: 10/25/17 09:58 Dose: Not Given Metoprolol Tartrate (Lopressor) 12.5 mg PO BID [facility] Last Admin: 11/04/17 18:08 Dose: 12.5 mg Metronidazole (Flagyl) 500 mg GT Q8 [facility] Last Admin: 11/04/17 21:10 Dose: 500 mg Midodrine (Proamatine) 10 mg PO TID [facility] Last Admin: 11/04/17 18:04 Dose: 10 mg Multivitamins (Hexavitamin) 1 tab PEG DAILY [facility] Last Admin: 11/04/17 10:19 Dose: 1 tab Ondansetron HCl (Zofran Inj) 4 mg IVP Q8H PRN PRN Reason: Nausea/Vomiting Pantoprazole Sodium (Protonix Inj) 40 mg IVP DAILY [facility] Last Admin: 11/04/17 10:20 Dose: 40 mg Rosuvastatin Calcium (Crestor) 10 mg PO HS [facility] Last Admin: 11/04/17 21:10 Dose: 10 mg Saccharomyces Boulardii (Florastor) 250 mg PO BID [facility] Last Admin: 11/04/17 18:04 Dose: 250 mg Vitamin A (Vitamin A & D Oint Ud Foilpak) 0.5 ea TOP Q1H PRN PRN Reason: Dry skin Last Admin: 11/04/17 10:20 Dose: 0.5 ea - Labs Labs: 11/04/17 06:37 11/04/17 06:37 PT 13.4 SECONDS (9.7-12.2) H 10/14/17 16:30 INR 1.2 10/14/17 16:30 APTT 28 SECONDS (21-34) 10/14/17 16:30
[2017-11-05] MEDS: (Novolog) Insulin Aspart, Recombinant 100 u/ml 10 ml vial SC SCH ×4 (00:13→17:41)
[2017-11-05] MEDS: Vitamins A & D Oint UD Foilpak TOP PRN ×2 (00:14→13:12)
[2017-11-05] MEDS: Ipratropium 0.02% Inhal Soln (0.5 mg/2.5 ml) UD IH SCH ×2 (02:20→07:21)
--- NOTE | 2017-11-05 03:07 | PN ---
DATE: SUBJECTIVE: The patient still remains in the ICU. He is still tachycardic. He had dialysis today and his dialysis catheter has not been changed because the family did not allow that. He did have yeast, bacteremia and I would like to have line change, but the family has not agreed for it in the past, so we will have to discuss with them again because as soon as they will take away the Mycamine, he will get fungemia again. PHYSICAL EXAMINATION: VITAL SIGNS: T-max is 98.4, pulse is 122, respirations remain 29, blood pressure is 111/58. GENERAL: He is awake, but he is not focusing. NECK: Supple. LUNGS: Clear. HEART: S1 and S2 is tachycardic. ABDOMEN: Remains with the PEG tube. EXTREMITIES: Have no edema in the lower extremity. He has a big sacral decubitus, which is infected probably. LABORATORY DATA: White count is 15.2, hemoglobin 8.9, hematocrit 27.7, platelet count is 562, BUN is 83, creatinine is 2.6. ASSESSMENT AND PLAN: It was discuss with to discuss with the family again about getting the catheter changed as patient is improving a little bit clinically by numbers and because he has fungemia, he should get the catheter change and at the same time may be have debridement of the sacral wound, so that he can go to rehab. He does have [id number] end-stage renal failure. He has congestive heart failure, he is status post chronic respiratory failure and his prognosis is poor, but with every day passing by, he should get the catheter changed and family to be made aware of it. Allan Lawrence MD
[2017-11-05] MEDS: MEROPENEM 500 MG in NS 500 MG/50 ML BAG IV SCH ×3 (05:23→22:00)
[2017-11-05 06:11] LABS: BASO # 0.1 K/uL (0.0-0.2); BASO % 0.9 % (0.0-2.0); EOS # 0.3 K/uL (0.0-0.7); EOS % 2.2 % (0.0-4.0); HEMATOCRIT 30.5 % (35.0-51.0); LYMPH # 2.3 K/uL (1.0-4.3); MEAN CELL VOLUME 91.6 fL (80.0-94.0); MEAN CORPUSCULAR HEMOGLOBIN 28.8 pg (27.0-31.0); MEAN CORPUSCULAR HGB CONC 31.5 g/dL (33.0-37.0); MONO # 0.9 K/uL (0.0-0.8); MONO % 5.9 % (0.0-10.0); NRBC % 0.2 % (0.0-2.0); RED CELL DISTRIBUTION WIDTH 26.8 % (11.5-14.5); WHITE BLOOD COUNT 15.5 K/uL (4.8-10.8)
[2017-11-05 06:31] LABS: ALB/GLOB RATIO 0.6 (1.0-2.1); BILIRUBIN,TOTAL 0.4 mg/dL (0.2-1.3); CALCIUM 7.4 mg/dl (8.6-10.4); POTASSIUM 4.2 mmol/L (3.6-5.2); TOTAL PROTEIN 6.3 g/dL (6.3-8.3)
--- NOTE | 2017-11-05 09:12 | CP.PCM.PN ---
Subjective - Date & Time of Evaluation Date of Evaluation: 11/05/17 Time of Evaluation: 09:10 - Subjective Subjective: no acute events chart reviewed unable to obtain ROS due to AMS tolerated HD 11/04 Objective - Vital Signs/Intake and Output Vital Signs (last 24 hours): Temp Pulse Resp BP Pulse Ox 97.9 F 112 H 22 139/46 L 100 11/05/17 04:00 11/05/17 08:01 11/05/17 08:01 11/05/17 08:01 11/05/17 08:01 Intake and Output: 11/05/17 11/05/17 06:59 18:59 Intake Total 1030 Output Total 300 Balance 730 - Medications Medications: Current Medications Ascorbic Acid (Vitamin C 500 Mg Tab) 500 mg PEG DAILY [facility] Last Admin: 11/04/17 10:19 Dose: 500 mg Aspirin (Aspirin Chewable) 81 mg PO DAILY [facility] Last Admin: 11/04/17 10:19 Dose: 81 mg Calcitriol (Rocaltrol) 0.25 mcg PEG DAILY [facility] Last Admin: 11/04/17 10:19 Dose: 0.25 mcg Calcium Acetate (Phoslo) 1,334 mg PO TIDCC [facility] Last Admin: 11/05/17 08:21 Dose: 1,334 mg Epoetin Chen[place] (Procrit) 10,000 unit IV MWF [facility] Last Admin: 11/04/17 12:54 Dose: 10,000 unit Micafungin Sodium 100 mg/ (Sodium Chloride) 100 mls @ 100 mls/hr IV Q24H [facility] Last Admin: 11/04/17 18:04 Dose: 100 mls/hr Meropenem/Sodium Chloride (Meropenem 500 Mg/Ns 50 Ml) 500 mg in 50 mls @ 50 mls /hr IV Q8 [facility] Last Admin: 11/05/17 05:23 Dose: 50 mls/hr Insulin Aspart (Novolog) 0 unit SC Q6 [facility] PRN Reason: Protocol Last Admin: 11/05/17 05:23 Dose: Not Given Insulin Detemir (Levemir) 35 unit SC Q12 [facility] Last Admin: 11/04/17 21:10 Dose: 35 unit Loperamide HCl (Imodium) 1 mg PO Q4H PRN PRN Reason: Diarrhea Last Admin: 11/04/17 21:10 Dose: 1 mg Metoprolol Tartrate (Lopressor) 12.5 mg PEG BID [facility] Metronidazole (Flagyl) 500 mg GT Q8 [facility] Last Admin: 11/05/17 05:23 Dose: 500 mg Midodrine (Proamatine) 10 mg PO TID [facility] Last Admin: 11/04/17 18:04 Dose: 10 mg Multivitamins (Hexavitamin) 1 tab PEG DAILY [facility] Last Admin: 11/04/17 10:19 Dose: 1 tab Pantoprazole Sodium (Protonix Inj) 40 mg IVP DAILY [facility] Last Admin: 11/04/17 10:20 Dose: 40 mg Rosuvastatin Calcium (Crestor) 10 mg PO HS [facility] Last Admin: 11/04/17 21:10 Dose: 10 mg Saccharomyces Boulardii (Florastor) 250 mg PO BID [facility] Last Admin: 11/04/17 18:04 Dose: 250 mg Vitamin A (Vitamin A & D Oint Ud Foilpak) 0.5 ea TOP Q1H PRN PRN Reason: Dry skin Last Admin: 11/05/17 00:14 Dose: 0.5 ea - Labs Labs: 11/05/17 06:07 11/05/17 06:07 PT 13.4 SECONDS (9.7-12.2) H 10/14/17 16:30 INR 1.2 10/14/17 16:30 APTT 28 SECONDS (21-34) 10/14/17 16:30 - Constitutional Appears: Confused, Chronically Ill - Head Exam Head Exam: ATRAUMATIC - Eye Exam Eye Exam: EOMI, Normal appearance - ENT Exam ENT Exam: Mucous Membranes Moist Additional comments: trach collar - Respiratory Exam Respiratory Exam: Decreased Breath Sounds. absent: Accessory Muscle Use - Cardiovascular Exam Cardiovascular Exam: Tachycardia. absent: Rubs - GI/Abdominal Exam GI & Abdominal Exam: Soft. absent: Tenderness - Extremities Exam Extremities Exam: absent: Pedal Edema Assessment and Plan - Assessment and Plan (Free Text) Assessment: cardiomyopathy trach collar dialysis dependent yeast sepsis maint HD support continue AB and pulmonary care
[2017-11-05] MEDS: Multiple Vitamins Tab PEG SCH (10:57)
[2017-11-05] MEDS: Saccharomyces Boulardi 250 mg Cap PO SCH ×2 (10:57→17:41)
[2017-11-05] MEDS: Insulin Detemir 100 units/ml Vial (Levemir) SC SCH ×2 (10:58→22:21)
--- NOTE | 2017-11-05 11:20 | CP.PCM.PN ---
Subjective - Date & Time of Evaluation Date of Evaluation: 11/05/17 Time of Evaluation: 09:00 - Subjective Subjective: Medicine Note for Hospitalist Service- Dr. Lazar Patient was seen and examined at bedside. Patient nodded his head to my questions. No acute complaints, no events overnight as per nursing. Objective - Vital Signs/Intake and Output Vital Signs (last 24 hours): Temp Pulse Resp BP Pulse Ox 99 F 112 H 22 139/46 L 100 11/05/17 08:00 11/05/17 08:01 11/05/17 08:01 11/05/17 08:01 11/05/17 08:01 Intake and Output: 11/05/17 11/05/17 06:59 18:59 Intake Total 1030 Output Total 300 Balance 730 - Medications Medications: Current Medications Ascorbic Acid (Vitamin C 500 Mg Tab) 500 mg PEG DAILY [facility] Last Admin: 11/05/17 10:57 Dose: 500 mg Aspirin (Aspirin Chewable) 81 mg PO DAILY [facility] Last Admin: 11/04/17 10:19 Dose: 81 mg Calcitriol (Rocaltrol) 0.25 mcg PEG DAILY [facility] Last Admin: 11/05/17 10:57 Dose: 0.25 mcg Calcium Acetate (Phoslo) 1,334 mg PO TIDCC [facility] Last Admin: 11/05/17 08:21 Dose: 1,334 mg Epoetin Chencho (Procrit) 10,000 unit IV MWF [facility] Last Admin: 11/04/17 12:54 Dose: 10,000 unit Micafungin Sodium 100 mg/ (Sodium Chloride) 100 mls @ 100 mls/hr IV Q24H [facility] Last Admin: 11/04/17 18:04 Dose: 100 mls/hr Meropenem/Sodium Chloride (Meropenem 500 Mg/Ns 50 Ml) 500 mg in 50 mls @ 50 mls /hr IV Q8 [facility] Last Admin: 11/05/17 05:23 Dose: 50 mls/hr Insulin Aspart (Novolog) 0 unit SC Q6 [facility] PRN Reason: Protocol Last Admin: 11/05/17 05:23 Dose: Not Given Insulin Detemir (Levemir) 35 unit SC Q12 [facility] Last Admin: 11/05/17 10:58 Dose: 35 unit Loperamide HCl (Imodium) 1 mg PO Q4H PRN PRN Reason: Diarrhea Last Admin: 11/04/17 21:10 Dose: 1 mg Metoprolol Tartrate (Lopressor) 12.5 mg PEG BID [facility] Last Admin: 11/05/17 10:57 Dose: 12.5 mg Metronidazole (Flagyl) 500 mg GT Q8 [facility] Last Admin: 11/05/17 05:23 Dose: 500 mg Midodrine (Proamatine) 10 mg PO TID [facility] Last Admin: 11/05/17 10:57 Dose: 10 mg Multivitamins (Hexavitamin) 1 tab PEG DAILY [facility] Last Admin: 11/05/17 10:57 Dose: 1 tab Pantoprazole Sodium (Protonix Inj) 40 mg IVP DAILY [facility] Last Admin: 11/05/17 10:56 Dose: 40 mg Rosuvastatin Calcium (Crestor) 10 mg PO HS [facility] Last Admin: 11/04/17 21:10 Dose: 10 mg Saccharomyces Boulardii (Florastor) 250 mg PO BID [facility] Last Admin: 11/05/17 10:57 Dose: 250 mg Vitamin A (Vitamin A & D Oint Ud Foilpak) 0.5 ea TOP Q1H PRN PRN Reason: Dry skin Last Admin: 11/05/17 00:14 Dose: 0.5 ea - Labs Labs: 11/05/17 06:07 11/05/17 06:07 PT 13.4 SECONDS (9.7-12.2) H 10/14/17 16:30 INR 1.2 10/14/17 16:30 APTT 28 SECONDS (21-34) 10/14/17 16:30 - Additional Findings Additional findings: - Constitutional Appears: Non-toxic, No Acute Distress, Other (stable) - Head Exam Head Exam: ATRAUMATIC, NORMAL INSPECTION (minor ulcer on left auricle), NORMOCEPHALIC - Eye Exam Eye Exam: EOMI, Normal appearance - ENT Exam ENT Exam: Mucous Membranes Moist - Neck Exam Neck Exam: Full ROM - Respiratory Exam Respiratory Exam: absent: Accessory Muscle Use - Cardiovascular Exam Cardiovascular Exam: REGULAR RHYTHM, +S1, +S2 - GI/Abdominal Exam GI & Abdominal Exam: Distended, Soft. absent: Tenderness Additional comments: PEG tube in place. - Extremities Exam Extremities Exam: absent: Full ROM, Joint Swelling, Pedal Edema - Neurological Exam Neurological Exam: Alert, Awake - Psychiatric Exam Psychiatric exam: Normal Affect, Normal Mood - Skin Skin Exam: Dry. absent: Intact Assessment and Plan - Assessment and Plan (Free Text) Plan: Hx Acute Respiratory Failure/ARDS/Cadiac Arrest/NSTEMI * Dr Cortés (cardiology) on the case-->help appreciated * Dr. Mena (pulmonary) on the case-->help appreciated * Code Blue on 08/10: asystole, cardiopulmonary resuscitative measures initiated , requiring 3 epis, bicarbonate, ROSC achieved and intubated and brought to the ICU. Patient has had multiple for hypotension. Latest [employer] was on 10/14; stable awaiting for tele bed when available. * Atrovent 0.5mg Inhaled RQ6H * Aspirin 81mg PO daily * Lopressor 25mg PO BID with holding parameters * Midodrine 10mg PO TID * Crestor 10mg PO qHS Leukocytosis: * Infectious Disease (Dr. Lawrence) on the case-->help appreciated * Blood Culture 10/22/17 is finalized as negative. * Sputum culture 10/14/17 is negative. * Stool cultures 10/20/17 are negative. 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 * Right Arm Midline Tip 10/06/17 culture is negative and removed. Midline Tip Culture 10/26/17 is negative. * Blood Cultures 10/28/17 are negative to date. * Iv ABx: Cefepime (10/12/17 through 10/24/17), Aztreonam (10/13/17 through )), Diflucan (10/14/17 through 10/26/17). * Currently on Meropenem 500 mg IV Q8H (10/28/17), Micofungin 100 mg IV Q24H () Flagyl (10/16/17). * I spoke with 11/02, she does not want Permacath replaced given cardiac risk for operation/anesthesia. * F/U Left upper extremity Dopplers to r/o DVT - after removal of left midline Hx Sacral Ulcer: * General surgery (Dr. Forbes) on board-->help appreciated * Bone Scan performed 09/17/17 to check for Osteomyelitis at the Sacrum: negative for osteomyelitis * currently on MediHoney daily, family has declined further debridement by surgery. Wound care on board Hx Abnormal Stress Test/AICD/CAD * Dr Cortés (cardiology) on the case-->help appreciated * Dr. Mena (pulmonary) on the case-->help appreciated * Code Blue on 08/10: asystole, cardiopulmonary resuscitative measures initiated , requiring 3 epis, bicarbonate, ROSC achieved and intubated and brought to the ICU. Patient has had multiple for hypotension. Latest [employer] E[employer]MENT CONSULTANT was on 10/14; stable awaiting for tele bed when available. * Aspirin 81mg PO daily * Lopressor 25mg PO BID with holding parameters * Midodrine 10mg PO TID * Crestor 10mg PO qHS Hx Atrial Flutter: * stopped Eliquis 10/24/17 secondary significant drop in HgB. Heart Rate is elevated. 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 Hx HTN: * Lopressor 25mg PEG BID with holding parameters Hx CKD on HD -. * Family would like to continue HD through current Permacath and declined surgical intervention to change catheter (due to the Blood Culture 10/24/17 being positive for Reny glabrata) as recommended by Vascular Surgery and Infectious Disease. * I discussed with today at bedside 11/02, she continues to deny the exchange secondary to cardiac risk. Hx DM: * Levemir 35 units [id number] * monitor [id number] * HgbA1c 8.4 Hx HLD * Crestor 10mg PO qHS Hx Anemia: * Eliquis stopped 10/24/17 and was transfused 2 units PRBCs. * CBC morning 10/25/17 dropped from 11.2 post trasfusion 10/24/17 to 10.2 morning 10/25/17. * Stool Occult is Positive and GI Dr. Dsouza was reconsulted however no further workup recommended in light of patient current status. * Procrit 10,000 units M-W- * Patient's blood is slowly decreasing; will likely need 1 unit of PRBC tomorrow during dialysis Hx DVT * Eliquis stopped 10/24/17 given positive bloody stool * Repeat dopplers 08/09/17 are negative for DVT Hx UTI: * Yeast on culture 10/24/17. He is currently on Micofungin 100 mg IV Q24H. He may be colonized with this. Hx Alzheimer's Dementia * CT head w/o contrast (08/10/17):acute os subacute lacune infarct is not excluded in the left basal ganglia inferiorly with definitive chronic lacune identified in the right basal ganglia superiorly. No acute or subacute lobar brain infarction is appreciable by standard CT criteria. Mild age-related neuro * CT Head w/o contrast (10/14/17): no intracranial mass, hemorrhage, or evidence of acute infarct. 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 Old right external capsule ischemic change. Age related atrophy and chronic microvascular ischemic change * Note: patient does listen to his at bedside, follows simple commands Hx Right Heal Ulcer * Podiatry (Dr. Lundberg) on board-->help appreciated * Prevalon boots * improved on exam and area of necrosis/unstageable area is decreased. Santyl and Optifoam daily. Pravolon boots Hx Elevated LFTs * normalized; patient is on statin and Micafungin Diarrhea: * on Rectal Seal and producing dark brown/black stools that are watery. Stool Studies 10/20/17 are negative * On loperamide PRn Hx Hyponatremia: Hx PEG Tube: * Vital 1.5 at 50 ml/hour Hx Hypocalcemia: * Calcitriol Prophylactic Measures: * Vitamin C, Dulcolax PRN, Pepcid, MVI, Zofran PRN, Florastor * Started on dialysis 08/15/17 * s/p Right Chest Permcath 08/22/17 * S/P Tracheostomy 08/22/17 * S/P Peg tube placement 08/25/17 * s/p insertion of right posterior chest tube 08/19-->removed 08/24/17 * [place] Trach placed 09/15/17 * s/p new mid line (left upper extremity) 10/26/17 prior mid line removed * (Jovita Serrano): * Patient is now: DNR DW Sung Rich DO, PGY-1
--- NOTE | 2017-11-05 11:53 | CP.PCM.PN ---
Subjective - Date & Time of Evaluation Date of Evaluation: 11/04/17 Time of Evaluation: 18:00 - Subjective Subjective: Patient seen and evaluated On Mechanical ventilation Not in distress HR in better control Objective - Vital Signs/Intake and Output Vital Signs (last 24 hours): Temp Pulse Resp BP Pulse Ox 99 F 112 H 22 139/46 L 100 11/05/17 08:00 11/05/17 08:01 11/05/17 08:01 11/05/17 08:01 11/05/17 08:01 Intake and Output: 11/05/17 11/05/17 06:59 18:59 Intake Total 1030 Output Total 300 Balance 730 - Medications Medications: Current Medications Ascorbic Acid (Vitamin C 500 Mg Tab) 500 mg PEG DAILY [facility] Last Admin: 11/05/17 10:57 Dose: 500 mg Aspirin (Aspirin Chewable) 81 mg PO DAILY [facility] Last Admin: 11/04/17 10:19 Dose: 81 mg Calcitriol (Rocaltrol) 0.25 mcg PEG DAILY [facility] Last Admin: 11/05/17 10:57 Dose: 0.25 mcg Calcium Acetate (Phoslo) 1,334 mg PO TIDCC [facility] Last Admin: 11/05/17 08:21 Dose: 1,334 mg Epoetin Chencho (Procrit) 10,000 unit IV MWF [facility] Last Admin: 11/04/17 12:54 Dose: 10,000 unit Micafungin Sodium 100 mg/ (Sodium Chloride) 100 mls @ 100 mls/hr IV Q24H [facility] Last Admin: 11/04/17 18:04 Dose: 100 mls/hr Meropenem/Sodium Chloride (Meropenem 500 Mg/Ns 50 Ml) 500 mg in 50 mls @ 50 mls /hr IV Q8 [facility] Last Admin: 11/05/17 05:23 Dose: 50 mls/hr Insulin Aspart (Novolog) 0 unit SC Q6 [facility] PRN Reason: Protocol Last Admin: 11/05/17 05:23 Dose: Not Given Insulin Detemir (Levemir) 35 unit SC Q12 [facility] Last Admin: 11/05/17 10:58 Dose: 35 unit Loperamide HCl (Imodium) 1 mg PO Q4H PRN PRN Reason: Diarrhea Last Admin: 11/04/17 21:10 Dose: 1 mg Metoprolol Tartrate (Lopressor) 12.5 mg PEG BID [facility] Last Admin: 11/05/17 10:57 Dose: 12.5 mg Metronidazole (Flagyl) 500 mg GT Q8 [facility] Last Admin: 11/05/17 05:23 Dose: 500 mg Midodrine (Proamatine) 10 mg PO TID [facility] Last Admin: 11/05/17 10:57 Dose: 10 mg Multivitamins (Hexavitamin) 1 tab PEG DAILY [facility] Last Admin: 11/05/17 10:57 Dose: 1 tab Pantoprazole Sodium (Protonix Inj) 40 mg IVP DAILY [facility] Last Admin: 11/05/17 10:56 Dose: 40 mg Rosuvastatin Calcium (Crestor) 10 mg PO HS [facility] Last Admin: 11/04/17 21:10 Dose: 10 mg Saccharomyces Boulardii (Florastor) 250 mg PO BID [facility] Last Admin: 11/05/17 10:57 Dose: 250 mg Vitamin A (Vitamin A & D Oint Ud Foilpak) 0.5 ea TOP Q1H PRN PRN Reason: Dry skin Last Admin: 11/05/17 00:14 Dose: 0.5 ea - Labs Labs: 11/05/17 06:07 11/05/17 06:07 PT 13.4 SECONDS (9.7-12.2) H 10/14/17 16:30 INR 1.2 10/14/17 16:30 APTT 28 SECONDS (21-34) 10/14/17 16:30
--- NOTE | 2017-11-05 12:46 | CP.PCM.PN ---
Subjective - Date & Time of Evaluation Date of Evaluation: 11/05/17 Time of Evaluation: 12:46 - Subjective Subjective: Podiatry Progress Note - Dr. Lundberg 77 yo patient seen at bedside today for f/u of chronic right heel ulceration. At time of visit, pt is resting in bed with offloading boots in place to both lower extremities. Patient is non-responsive to verbal commands but responds to dressing change with head movements. Objective - Vital Signs/Intake and Output Vital Signs (last 24 hours): Temp Pulse Resp BP Pulse Ox 99 F 93 H 19 132/58 L 100 11/05/17 08:00 11/05/17 12:01 11/05/17 12:01 11/05/17 12:01 11/05/17 12:01 Intake and Output: 11/05/17 11/05/17 06:59 18:59 Intake Total 1030 Output Total 300 Balance 730 - Medications Medications: Current Medications Ascorbic Acid (Vitamin C 500 Mg Tab) 500 mg PEG DAILY [facility] Last Admin: 11/05/17 10:57 Dose: 500 mg Aspirin (Aspirin Chewable) 81 mg PO DAILY [facility] Last Admin: 11/04/17 10:19 Dose: 81 mg Calcitriol (Rocaltrol) 0.25 mcg PEG DAILY [facility] Last Admin: 11/05/17 10:57 Dose: 0.25 mcg Calcium Acetate (Phoslo) 1,334 mg PO TIDCC [facility] Last Admin: 11/05/17 08:21 Dose: 1,334 mg Epoetin Chencho (Procrit) 10,000 unit IV MWF [facility] Last Admin: 11/04/17 12:54 Dose: 10,000 unit Micafungin Sodium 100 mg/ (Sodium Chloride) 100 mls @ 100 mls/hr IV Q24H [facility] Last Admin: 11/04/17 18:04 Dose: 100 mls/hr Meropenem/Sodium Chloride (Meropenem 500 Mg/Ns 50 Ml) 500 mg in 50 mls @ 50 mls /hr IV Q8 [facility] Last Admin: 11/05/17 05:23 Dose: 50 mls/hr Insulin Aspart (Novolog) 0 unit SC Q6 [facility] PRN Reason: Protocol Last Admin: 11/05/17 05:23 Dose: Not Given Insulin Detemir (Levemir) 35 unit SC Q12 [facility] Last Admin: 11/05/17 10:58 Dose: 35 unit Loperamide HCl (Imodium) 1 mg PO Q4H PRN PRN Reason: Diarrhea Last Admin: 11/04/17 21:10 Dose: 1 mg Metoprolol Tartrate (Lopressor) 12.5 mg PEG BID [facility] Last Admin: 11/05/17 10:57 Dose: 12.5 mg Metronidazole (Flagyl) 500 mg GT Q8 [facility] Last Admin: 11/05/17 05:23 Dose: 500 mg Midodrine (Proamatine) 10 mg PO TID [facility] Last Admin: 11/05/17 10:57 Dose: 10 mg Multivitamins (Hexavitamin) 1 tab PEG DAILY [facility] Last Admin: 11/05/17 10:57 Dose: 1 tab Pantoprazole Sodium (Protonix Inj) 40 mg IVP DAILY [facility] Last Admin: 11/05/17 10:56 Dose: 40 mg Rosuvastatin Calcium (Crestor) 10 mg PO HS [facility] Last Admin: 11/04/17 21:10 Dose: 10 mg Saccharomyces Boulardii (Florastor) 250 mg PO BID [facility] Last Admin: 11/05/17 10:57 Dose: 250 mg Vitamin A (Vitamin A & D Oint Ud Foilpak) 0.5 ea TOP Q1H PRN PRN Reason: Dry skin Last Admin: 11/05/17 00:14 Dose: 0.5 ea - Labs Labs: 11/05/17 06:07 11/05/17 06:07 PT 13.4 SECONDS (9.7-12.2) H 10/14/17 16:30 INR 1.2 10/14/17 16:30 APTT 28 SECONDS (21-34) 10/14/17 16:30 - Constitutional Appears: Non-toxic, No Acute Distress - Extremities Exam Additional comments: B/L lower extremity focused exam: VASC- pedal pulses faintly palpable, CFT >4 sec to all digits DERM- right heel appears to have necrotic eschar that is non-stageable, no lincoln wound erythema, no drainage, no malodor, no cellulitis NEURO- pedal sensation grossly diminished ORTHO- slight tenderness to palpation of right heel seen by withdrawal on palpation Assessment and Plan - Assessment and Plan (Free Text) Assessment: 77 yo male patient seen and evaluated for right heel unstageable ulcer Plan: Patient seen and evaluated at bedside Discussed plan with attending Dr. Lundberg Labs and vitals reviewed- afebrile, WBC 20.6 Santyl & Optifoam applied to right heel Foot wound does not appear clinically infected at this time Offloading boots reapplied, to remain on at all times Podiatry will continue to follow patient
[2017-11-05] MEDS: Micafungin 100 MG in Sodium Chloride 0.9% 100 ML IV SCH (17:39)
[2017-11-06] MEDS: MEROPENEM 500 MG in NS 500 MG/50 ML BAG IV SCH ×2 (06:12→13:41)
[2017-11-06 06:31] LABS: BASO # 0.3 K/uL (0.0-0.2); BASO % 1.4 % (0.0-2.0); EOS # 0.3 K/uL (0.0-0.7); EOS % 1.7 % (0.0-4.0); HEMATOCRIT 34.9 % (35.0-51.0); LYMPH # 2.9 K/uL (1.0-4.3); LYMPH % 14.2 % (20.0-40.0); MEAN CELL VOLUME 93.4 fL (80.0-94.0); MEAN CORPUSCULAR HEMOGLOBIN 30.1 pg (27.0-31.0); MEAN CORPUSCULAR HGB CONC 32.2 g/dL (33.0-37.0); MONO # 1.2 K/uL (0.0-0.8); NRBC % 0.2 % (0.0-2.0); RED CELL DISTRIBUTION WIDTH 26.2 % (11.5-14.5); WHITE BLOOD COUNT 20.6 K/uL (4.8-10.8)
[2017-11-06] MEDS: (Novolog) Insulin Aspart, Recombinant 100 u/ml 10 ml vial SC SCH ×4 (06:31→18:13)
[2017-11-06 06:45] LABS: ALB/GLOB RATIO 0.9 (1.0-2.1); BILIRUBIN,TOTAL 0.4 mg/dL (0.2-1.3); MAGNESIUM 2.1 mg/dL (1.6-2.3); PHOSPHOROUS 6.1 mg/dL (2.5-4.5); TOTAL PROTEIN 5.9 g/dL (6.3-8.3)
--- NOTE | 2017-11-06 08:52 | CP.PCM.PN ---
Subjective - Date & Time of Evaluation Date of Evaluation: 11/06/17 Time of Evaluation: 08:50 - Subjective Subjective: Medical Attending Note: Patient seen, examined at bedside. No events overnight. Unable to review of ROS secondary clinical condition. No family present at bedside. Objective - Vital Signs/Intake and Output Vital Signs (last 24 hours): Temp Pulse Resp BP Pulse Ox 97.9 F 116 H 16 135/48 L 98 11/06/17 04:00 11/06/17 04:00 11/06/17 04:00 11/06/17 04:02 11/06/17 04:00 Intake and Output: 11/06/17 11/06/17 06:59 18:59 Intake Total 1000 Output Total 150 Balance 850 - Medications Medications: Current Medications Ascorbic Acid (Vitamin C 500 Mg Tab) 500 mg PEG DAILY [facility] Last Admin: 11/05/17 10:57 Dose: 500 mg Aspirin (Aspirin Chewable) 81 mg PO DAILY [facility] Last Admin: 11/05/17 15:01 Dose: 81 mg Calcitriol (Rocaltrol) 0.25 mcg PEG DAILY [facility] Last Admin: 11/05/17 10:57 Dose: 0.25 mcg Calcium Acetate (Phoslo) 1,334 mg PO TIDCC [facility] Last Admin: 11/06/17 08:31 Dose: 1,334 mg Epoetin Chencho (Procrit) 10,000 unit IV MWF [facility] Last Admin: 11/04/17 12:54 Dose: 10,000 unit Micafungin Sodium 100 mg/ (Sodium Chloride) 100 mls @ 100 mls/hr IV Q24H [facility] Last Admin: 11/05/17 17:39 Dose: 100 mls/hr Meropenem/Sodium Chloride (Meropenem 500 Mg/Ns 50 Ml) 500 mg in 50 mls @ 50 mls /hr IV Q8 [facility] Last Admin: 11/06/17 06:12 Dose: 50 mls/hr Insulin Aspart (Novolog) 0 unit SC Q6 [facility] FERNANDO PRN Reason: Protocol Last Admin: 11/06/17 06:31 Dose: Not Given Insulin Detemir (Levemir) 35 unit SC Q12 [facility] Last Admin: 11/05/17 22:21 Dose: 35 unit Loperamide HCl (Imodium) 1 mg PO Q4H PRN PRN Reason: Diarrhea Last Admin: 11/04/17 21:10 Dose: 1 mg Metoprolol Tartrate (Lopressor) 12.5 mg PEG BID [facility] Last Admin: 11/05/17 17:40 Dose: 12.5 mg Metronidazole (Flagyl) 500 mg GT Q8 [facility] Last Admin: 11/06/17 06:13 Dose: 500 mg Midodrine (Proamatine) 10 mg PO TID [facility] Last Admin: 11/05/17 17:40 Dose: 10 mg Multivitamins (Hexavitamin) 1 tab PEG DAILY [facility] Last Admin: 11/05/17 10:57 Dose: 1 tab Pantoprazole Sodium (Protonix Inj) 40 mg IVP DAILY [facility] Last Admin: 11/05/17 10:56 Dose: 40 mg Rosuvastatin Calcium (Crestor) 10 mg PO HS [facility] Last Admin: 11/05/17 22:20 Dose: 10 mg Saccharomyces Boulardii (Florastor) 250 mg PO BID [facility] Last Admin: 11/05/17 17:41 Dose: 250 mg Vitamin A (Vitamin A & D Oint Ud Foilpak) 0.5 ea TOP Q1H PRN PRN Reason: Dry skin Last Admin: 11/05/17 13:12 Dose: 0.5 ea - Labs Labs: 11/06/17 06:21 11/06/17 06:15 PT 13.4 SECONDS (9.7-12.2) H 10/14/17 16:30 INR 1.2 10/14/17 16:30 APTT 28 SECONDS (21-34) 10/14/17 16:30 - Constitutional Appears: Chronically Ill - Head Exam Head Exam: NORMAL INSPECTION - Eye Exam Eye Exam: EOMI - Respiratory Exam Respiratory Exam: Decreased Breath Sounds, NORMAL BREATHING PATTERN. absent: Respiratory Distress - Cardiovascular Exam Cardiovascular Exam: Tachycardia, +S1, +S2 - GI/Abdominal Exam GI & Abdominal Exam: Soft, Normal Bowel Sounds. absent: Distended, Firm, Guarding, Rigid, Tenderness, Rebound - Extremities Exam Additional comments: Prevalon Boots Right heel: covered with dressing - Neurological Exam Neurological Exam: Awake - Skin Skin Exam: Warm Attending/Attestation - Attestation I have personally seen and examined this patient.: Yes I have fully participated in the care of the patient.: Yes I have reviewed all pertinent clinical information, including history, physical exam and plan: Yes Notes (Text): Assessment/Plans 1). Hx Acute Respiratory Failure/ARDS/Cadiac Arrest/NSTEMI * Dr Cortés (cardiology) on the case-->help appreciated * Dr. Mena (pulmonary) on the case-->help appreciated * Code Blue on 08/10: asystole, cardiopulmonary resuscitative measures initiated , requiring 3 epis, bicarbonate, ROSC achieved and intubated and brought to the ICU. Patient has had multiple for hypotension. Latest FIELD AIDE was on 10/14; stable awaiting for tele bed when available. * Atrovent 0.5mg Inhaled RQ6H * Aspirin 81mg PO daily * Lopressor 12.5mg PO BID with holding parameters * Midodrine 10mg PO TID * Crestor 10mg PO qHS 2). Hx Abnormal Stress Test/AICD/CAD * Dr Cortés (cardiology) on the case-->help appreciated * Dr. Mena (pulmonary) on the case-->help appreciated * Code Blue on 08/10: asystole, cardiopulmonary resuscitative measures initiated , requiring 3 epis, bicarbonate, ROSC achieved and intubated and brought to the ICU. Patient has had multiple for hypotension. Latest FIELD AIDE was on 10/14; stable awaiting for tele bed when available. * Aspirin 81mg PO daily * Lopressor 12.5mg PO BID with holding parameters * Midodrine 10mg PO TID * Crestor 10mg PO qHS 3). Hx Atrial Flutter: * stopped Eliquis 10/24/17 secondary significant drop in HgB. Heart Rate is elevated. Ordered for Lopressor 5mg iVX1 on 10/31 * Lopressor 12.5mg PO BID with holding parameters 4). 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 Leukocytosis: Uptrending * Infectious Disease (Dr. Lawrence) on the case-->help appreciated * Blood Culture 10/22/17 is finalized as negative. * Sputum culture 10/14/17 is negative. * Stool cultures 10/20/17 are negative. 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 * Right Arm Midline Tip 10/06/17 culture is negative and removed. Midline Tip Culture 10/26/17 is negative. * Blood Cultures 10/28/17 are negative to date. * Iv ABx: Cefepime (10/12/17 through 10/24/17), Aztreonam (10/13/17 through )), Diflucan (10/14/17 through 10/26/17). * Currently on Meropenem 500 mg IV Q8H (10/28/17), Micofungin 100 mg IV Q24H () Flagyl (10/16/17). * I spoke with 11/02, she does not want Permacath replaced given cardiac risk for operation/anesthesia. * ID Recommended for permcath and sacral debrdiement by ID, has refused 11/02 will to revisit this conversation given elevation in white count. 6). Hx Pneumonia, Fungemia * ID on the case-->help appreciated * Currently on Meropenem 500 mg IV Q8H (10/28/17-present ), Micofungin 100 mg IV Q24H (10/27/17-present) Flagyl 500 GT Q8H (10/16/17-present). * ID recommends Permcath to be exchanged out and sacral debridement; however, has refused, last had conversation on 11/02 given cardiac risk for invasive operation. Will need to revisit this conversation to affirm this sentiment given elevation in white count 7). Hx HTN: * Lopressor 12.5mg PEG BID with holding parameters 8). Hx CKD on HD . * Family would like to continue HD through current Permacath and declined surgical intervention to change catheter (due to the Blood Culture 10/24/17 being positive for Reny glabrata) as recommended by Vascular Surgery and Infectious Disease. * I discussed with today at bedside 11/02, she continues to deny the exchange secondary to cardiac risk. * Phoslo 1334mg PO TIDCC * Epocrit 10,000 unit IV MWF 9). Hx DM: * Levemir 35 units [id number] * monitor [id number] * HgbA1c 8.4 10). Hx HLD * Crestor 10mg PO qHS 11). Hx Anemia: * Eliquis stopped 10/24/17 and was transfused 2 units PRBCs. * CBC morning 10/25/17 dropped from 11.2 post trasfusion 10/24/17 to 10.2 morning 10/25/17. * Stool Occult is Positive and GI Dr. Dsouza was reconsulted however no further workup recommended in light of patient current status. * Procrit 10,000 units M-W- * s/p1 unit of PRBC 11/04 given declining H/H 12). Hx DVT * Eliquis stopped 10/24/17 given positive bloody stool * Repeat dopplers 08/09/17 are negative for DVT 13). Hx UTI: * Yeast on culture 10/24/17. He is currently on Micofungin 100 mg IV Q24H. He may be colonized with this. * ID Recommended for permcath and sacral debrdiement by ID, has refused 11/02 will to revisit this conversation given elevation in white count. 14). Hx Alzheimer's Dementia * CT head w/o contrast (08/10/17):acute os subacute lacune infarct is not excluded in the left basal ganglia inferiorly with definitive chronic lacune identified in the right basal ganglia superiorly. No acute or subacute lobar brain infarction is appreciable by standard CT criteria. Mild age-related neuro * CT Head w/o contrast (10/14/17): no intracranial mass, hemorrhage, or evidence of acute infarct. 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 Old right external capsule ischemic change. Age related atrophy and chronic microvascular ischemic change * Note: patient does listen to his at bedside, follows simple commands 15). Hx Sacral Ulcer: * General surgery (Dr. Forbes) on board-->help appreciated * Bone Scan performed 09/17/17 to check for Osteomyelitis at the Sacrum: negative for osteomyelitis * currently on MediHoney daily, family has declined further debridement by surgery. Wound care on board * Recommended for permcath and sacral debrdiement by ID, has refused 11/02 will to revisit this conversation given elevation in white count. 16). Hx Right Heal Ulcer * Podiatry (Dr. Lundberg) on board-->help appreciated * Prevalon boots * improved on exam and area of necrosis/unstageable area is decreased. Santyl and Optifoam daily. Pravolon boots 17). Hx Elevated LFTs * normalized; patient is on statin and Micafungin 18). Diarrhea: * on Rectal Seal and producing dark brown/black stools that are watery. Stool Studies 10/20/17 are negative * On loperamide PRn 19). Hx Hyponatremia: * normalized 20). Hx PEG Tube: * Vital 1.5 at 50 ml/hour 21). Hx Hypocalcemia: * Calcitriol 22). Prophylactic Measures: * Vitamin C, Dulcolax PRN, Pepcid, MVI, Zofran PRN, Florastor * Started on dialysis 08/15/17 * s/p Right Chest Permcath 08/22/17--->Recommended by ID to exchange out but has refused. Will need to revisit given elevation in WBC * S/P Tracheostomy 08/22/17 * S/P Peg tube placement 08/25/17 * s/p insertion of right posterior chest tube 08/19-->removed 08/24/17 * [place] Trach placed 09/15/17 * s/p new mid line (left upper extremity) 10/26/17 prior mid line removed * (Jovita Serrano): * Patient is now: DNR Disposition: Recommended by ID to get sacral debridement and permacath exchange out; Had spoke with on Tuesday, 11/02 but had refused. Will need to address given elevated in white count. Reconsult physical therapy given patient is lower extremity is stiff per nursing. No new updates per case management
[2017-11-06] MEDS: Multiple Vitamins Tab PEG SCH (09:15)
[2017-11-06] MEDS: Saccharomyces Boulardi 250 mg Cap PO SCH ×2 (09:15→18:06)
[2017-11-06] MEDS: Insulin Detemir 100 units/ml Vial (Levemir) SC SCH ×2 (09:20→21:47)
[2017-11-06] MEDS: Micafungin 100 MG in Sodium Chloride 0.9% 100 ML IV SCH (18:04)
--- NOTE | 2017-11-06 20:38 | CP.PCM.PN ---
Subjective - Date & Time of Evaluation Date of Evaluation: 11/06/17 Time of Evaluation: 10:35 - Subjective Subjective: Covering for Dr Cortés. Awake, confused ventilator dependent hemodynamically stable Objective - Vital Signs/Intake and Output Vital Signs (last 24 hours): Temp Pulse Resp BP Pulse Ox 98.1 F 93 H 24 142/60 98 11/06/17 19:58 11/06/17 19:58 11/06/17 19:58 11/06/17 19:58 11/06/17 19:58 Intake and Output: 11/06/17 11/07/17 18:59 06:59 Intake Total 70 Balance 70 - Medications Medications: Current Medications Ascorbic Acid (Vitamin C 500 Mg Tab) 500 mg PEG DAILY [facility] Last Admin: 11/06/17 09:15 Dose: 500 mg Aspirin (Aspirin Chewable) 81 mg PO DAILY [facility] Last Admin: 11/06/17 09:19 Dose: 81 mg Calcitriol (Rocaltrol) 0.25 mcg PEG DAILY [facility] Last Admin: 11/06/17 09:15 Dose: 0.25 mcg Calcium Acetate (Phoslo) 1,334 mg PO TIDCC [facility] Last Admin: 11/06/17 17:50 Dose: 1,334 mg Epoetin Chencho (Procrit) 10,000 unit IV MWF [facility] Last Admin: 11/04/17 12:54 Dose: 10,000 unit Micafungin Sodium 100 mg/ (Sodium Chloride) 100 mls @ 100 mls/hr IV Q24H [facility] Last Admin: 11/06/17 18:04 Dose: 100 mls/hr Meropenem 500 mg/ Sodium (Chloride) 100 mls @ 50 mls/hr IVPB Q8 [facility] Insulin Aspart (Novolog) 0 unit SC Q6 [facility] PRN Reason: Protocol Last Admin: 11/06/17 18:13 Dose: 1 unit Insulin Detemir (Levemir) 35 unit SC Q12 [facility] Last Admin: 11/06/17 09:20 Dose: 35 unit Loperamide HCl (Imodium) 1 mg PO Q4H PRN PRN Reason: Diarrhea Last Admin: 11/04/17 21:10 Dose: 1 mg Metoprolol Tartrate (Lopressor) 12.5 mg PEG BID [facility] Last Admin: 11/06/17 18:06 Dose: 12.5 mg Metronidazole (Flagyl) 500 mg GT Q8 [facility] Last Admin: 11/06/17 13:40 Dose: 500 mg Midodrine (Proamatine) 10 mg PO TID [facility] Last Admin: 11/06/17 18:05 Dose: 10 mg Multivitamins (Hexavitamin) 1 tab PEG DAILY [facility] Last Admin: 11/06/17 09:15 Dose: 1 tab Pantoprazole Sodium (Protonix Inj) 40 mg IVP DAILY [facility] Last Admin: 11/06/17 09:16 Dose: 40 mg Rosuvastatin Calcium (Crestor) 10 mg PO HS [facility] Last Admin: 11/05/17 22:20 Dose: 10 mg Saccharomyces Boulardii (Florastor) 250 mg PO BID [facility] Last Admin: 11/06/17 18:06 Dose: 250 mg Vitamin A (Vitamin A & D Oint Ud Foilpak) 0.5 ea TOP Q1H PRN PRN Reason: Dry skin Last Admin: 11/05/17 13:12 Dose: 0.5 ea - Labs Labs: 11/06/17 06:21 11/06/17 06:15 PT 13.4 SECONDS (9.7-12.2) H 10/14/17 16:30 INR 1.2 10/14/17 16:30 APTT 28 SECONDS (21-34) 10/14/17 16:30 - Constitutional Appears: Chronically Ill - Eye Exam Eye Exam: absent: Scleral icterus - Neck Exam Neck Exam: absent: Lymphadenopathy - Respiratory Exam Respiratory Exam: Rhonchi - Cardiovascular Exam Cardiovascular Exam: REGULAR RHYTHM - GI/Abdominal Exam GI & Abdominal Exam: Soft. absent: Tenderness - Extremities Exam Extremities Exam: Calf Tenderness, Pedal Edema Assessment and Plan - Assessment and Plan (Free Text) Assessment: Acute respiratory failure- vent dependent s/p Cardiac arrest ESRD on HD Fungemia Plan: Cont present meds dialysis Poor prognosis
[2017-11-06] MEDS: Meropenem 500 MG in Sodium Chloride 0.9% 100 ML IVPB SCH (21:26)
[2017-11-07] MEDS: (Novolog) Insulin Aspart, Recombinant 100 u/ml 10 ml vial SC SCH ×4 (00:15→17:42)
[2017-11-07] MEDS: Meropenem 500 MG in Sodium Chloride 0.9% 100 ML IVPB SCH ×3 (05:53→21:10)
[2017-11-07 06:34] LABS: BASO # 0.1 K/uL (0.0-0.2); BASO % 0.4 % (0.0-2.0); EOS # 0.3 K/uL (0.0-0.7); EOS % 2.1 % (0.0-4.0); HEMATOCRIT 31.9 % (35.0-51.0); LYMPH # 2.6 K/uL (1.0-4.3); LYMPH % 17.7 % (20.0-40.0); MEAN CELL VOLUME 92.3 fL (80.0-94.0); MEAN CORPUSCULAR HEMOGLOBIN 29.5 pg (27.0-31.0); MEAN CORPUSCULAR HGB CONC 31.9 g/dL (33.0-37.0); MEAN PLATELET VOLUME 7.5 fL (7.2-11.7); MONO # 0.9 K/uL (0.0-0.8); MONO % 6.3 % (0.0-10.0); RED CELL DISTRIBUTION WIDTH 24.5 % (11.5-14.5); WHITE BLOOD COUNT 14.9 K/uL (4.8-10.8)
[2017-11-07 07:05] LABS: ALB/GLOB RATIO 0.7 (1.0-2.1); BILIRUBIN,TOTAL 0.4 mg/dL (0.2-1.3); CALCIUM 7.7 mg/dl (8.6-10.4); MAGNESIUM 2.2 mg/dL (1.6-2.3); POTASSIUM 5.1 mmol/L (3.6-5.2); TOTAL PROTEIN 6.3 g/dL (6.3-8.3)
--- NOTE | 2017-11-07 07:58 | CP.PCM.PN ---
<Tangela Sanchez - Last Filed: 11/07/17 17:23> Subjective - Date & Time of Evaluation Date of Evaluation: 11/07/17 Time of Evaluation: 07:58 - Subjective Subjective: Progress note for DR. Cullen Barth Patient seen and examined at bedside. Patient responding well to speech. Patient nods to speech, but does not verbalize. Patient is able to move his torso to sit up better in bed. Objective - Vital Signs/Intake and Output Vital Signs (last 24 hours): Temp Pulse Resp BP Pulse Ox 98.4 F 101 H 29 H 134/48 L 98 11/07/17 07:51 11/07/17 06:09 11/07/17 06:09 11/07/17 06:09 11/07/17 06:09 Intake and Output: 11/07/17 11/07/17 06:59 18:59 Intake Total 1140 Output Total 150 Balance 990 - Medications Medications: Current Medications Ascorbic Acid (Vitamin C 500 Mg Tab) 500 mg PEG DAILY [facility] Last Admin: 11/06/17 09:15 Dose: 500 mg Aspirin (Aspirin Chewable) 81 mg PO DAILY [facility] Last Admin: 11/06/17 09:19 Dose: 81 mg Calcitriol (Rocaltrol) 0.25 mcg PEG DAILY [facility] Last Admin: 11/06/17 09:15 Dose: 0.25 mcg Calcium Acetate (Phoslo) 1,334 mg PO TIDCC [facility] Last Admin: 11/07/17 07:28 Dose: 1,334 mg Epoetin Asim (Procrit) 10,000 unit IV MWF [facility] Last Admin: 11/04/17 12:54 Dose: 10,000 unit Micafungin Sodium 100 mg/ (Sodium Chloride) 100 mls @ 100 mls/hr IV Q24H [facility] Last Admin: 11/06/17 18:04 Dose: 100 mls/hr Meropenem 500 mg/ Sodium (Chloride) 100 mls @ 50 mls/hr IVPB Q8 [facility] Last Admin: 11/07/17 05:53 Dose: 50 mls/hr Insulin Aspart (Novolog) 0 unit SC Q6 [facility] PRN Reason: Protocol Last Admin: 11/07/17 06:07 Dose: 1 unit Insulin Detemir (Levemir) 35 unit SC Q12 [facility] Last Admin: 11/06/17 21:47 Dose: 35 unit Loperamide HCl (Imodium) 1 mg PO Q4H PRN PRN Reason: Diarrhea Last Admin: 11/04/17 21:10 Dose: 1 mg Metoprolol Tartrate (Lopressor) 12.5 mg PEG BID [facility] Last Admin: 11/06/17 18:06 Dose: 12.5 mg Metronidazole (Flagyl) 500 mg GT Q8 [facility] Last Admin: 11/07/17 05:53 Dose: 500 mg Midodrine (Proamatine) 10 mg PO TID [facility] Last Admin: 11/06/17 18:05 Dose: 10 mg Multivitamins (Hexavitamin) 1 tab PEG DAILY [facility] Last Admin: 11/06/17 09:15 Dose: 1 tab Pantoprazole Sodium (Protonix Inj) 40 mg IVP DAILY [facility] Last Admin: 11/06/17 09:16 Dose: 40 mg Rosuvastatin Calcium (Crestor) 10 mg PO HS [facility] Last Admin: 11/06/17 21:26 Dose: 10 mg Saccharomyces Boulardii (Florastor) 250 mg PO BID [facility] Last Admin: 11/06/17 18:06 Dose: 250 mg Vitamin A (Vitamin A & D Oint Ud Foilpak) 0.5 ea TOP Q1H PRN PRN Reason: Dry skin Last Admin: 11/05/17 13:12 Dose: 0.5 ea - Labs Labs: 11/07/17 06:26 11/07/17 06:26 PT 13.4 SECONDS (9.7-12.2) H 10/14/17 16:30 INR 1.2 10/14/17 16:30 APTT 28 SECONDS (21-34) 10/14/17 16:30 - Constitutional Appears: Non-toxic - Head Exam Head Exam: ATRAUMATIC, NORMAL INSPECTION, NORMOCEPHALIC - Eye Exam Eye Exam: EOMI, Normal appearance Pupil Exam: NORMAL ACCOMODATION - Neck Exam Neck Exam: absent: Lymphadenopathy, Thyromegaly Additional comments: trach tube in place - Respiratory Exam Respiratory Exam: Decreased Breath Sounds, NORMAL BREATHING PATTERN Additional comments: no wheezing, rhonchi - Cardiovascular Exam Cardiovascular Exam: REGULAR RHYTHM, +S1, +S2 - GI/Abdominal Exam GI & Abdominal Exam: Distended Additional comments: PEG tube in place - Extremities Exam Extremities Exam: absent: Full ROM, Pedal Edema Additional comments: leg ulcer dressed in optifoam - Back Exam Back Exam: Full ROM - Neurological Exam Neurological Exam: Awake - Skin Skin Exam: Pallor Additional comments: sacral and ischial ulcers unstageable, covered with optifoam Assessment and Plan - Assessment and Plan (Free Text) Assessment: 77M with ARDS s/p cardiac arrest, with pulmonary edema and NSTEMI * Ipratropium 0.02% (atrovent) 0.5mg IH RQ6H * 10/24 CXR: questionable interval atelectasis or infiltrate in medial right base * 10/23 mid bibasilar atelectasis. questionable small left-sided effusion * CXR left lobe atelectasis v pna * 10/26 right midline removed, tip of midline sent for culture 10/26, new midline placed on left arm 10/26 * 10/[address] Lawrence: fungal infection in blood, lines should be changed. * 10/[address] Lawrence: fungal infection in blood, lines should be changed. * reach out to Mrs. Wolf, if family does want patient on dialysis: dialysis needs to be changed * f/u echo to rule out vegetations * 10/28: Family wants patient to receive dialysis; consulted surgery for permacath replacement. * Surgery consulted, Dr. Forbes * Patient received dialysis today; developed sinus tachycardia during; continue to monitor on telemetry. * 10/29 Digoxin 0.25 mg IV was given to patient for the sinus tachycardia. * ECHO: LV function markedly reduced, diffuse hypokinesis; septum is akinetic; LV EF 20%; Trace AR. * Continue mycamine 100mg POQD, merrem 500 POQD, flagy 500mg GT Q8 Constipation, resolved * Dulcolax 10mg [place] Once PRN 10/21, patient had a dark brown BM yesterday, none today per nursing staff * Patient is having diarrhea in the Flexseal. Cultures were taken, currently negative * GI Dr. Wills consulted: does not feel that it would be in the best interest of the patient at this time to do any invasive procedure or examination. Diarrhea * One dose of immodium given overnight Hypotensive, resolving, stable * Metoprolol on hold HTN * 10/31 Lopressor 5mg once was given today for high blood pressure Leukocytosis * current cultures negative (blood, stool and wound) * 10/14 urine culture: yeast * 10/14 blood culture is positive for yeast * f/u stool culture from rectoseal from 10/23 * 10/26 WBC 25.5 * 10/27 WBC 17 * Saccharomyces boulardi (florastor) 250mg PO BID * Blood cx x1 from 10/24: positive for Reny Glabrata * Second blood cx showed no growth * As per ID, suggested replacing dialysis lines due to fungal infection * 10/26: catheter tip cx: no growth * Continue mycamine 100mg POQD, Flagyl 500mg GT Q8m Merem 500mg IV Q8 Abnormal Stress test, history of AICD, hx CAD * ASA 81mg POQD * Rosuvastatin [id number] POQHS Atrial Flutter, resolved * Cardiology Consult (Dr. Cortés) * Aspirin 81mg PO daily * c/w Eliquis 2.5mg PO bid * Eliquis held d/t Hgb 6.6 10/24 Low hemoglobin * Epoeitin asim 67700 u IV M, W, F * 10/24: Eliquis held d/t Hgb 6.6; 2uPRBC administered after dialysis * Hgb 11.2 after 2uPRBC * 11/04 1 uPRBC Hypocalcemia * Calcitriol 0.25 mcg PEG daily UTI, yeast positive * 10/14 urine positive for yeast * Discontinued Diflucan 100mg/50cc NS @ 55cc/hr QD Unstageable Sacral Ulcer, Left Ear Auriclular ulcer, Right Heal Ulcer * Continue to monitor HTN, medications held until blood pressure is higher * Midodrine (proamatine) * Metoprolol 25mg PEG BID BS DM * Levemir 25 units SC Q12 * ISS * Glucose accuchecks CKD with Dialysis * Dialysis MWF via permacath * Patient received dialysis today, 10/28. * During dialysis, patient developed sinus tachycardia. continue to monitor on telemetry Prophylaxis * Pepcid 20mg POQD * Zofran 4mg IVP Q8H PRN Diet: tube feeds: Vital 1.2 initial rate 20cc/hr with goal rate 70cc/hr Patient is at goal rate Social Work Patient's new insurance does not accept LTAC. New insurance starts October 28 Currently waiting for [place] [facility] to accept the patient when new insurance starts 10/28/17 [employer] worker to provide letter to have daughter in [facility] get a visa to come to the [place] to see her father. Comfort measures in place. POL in chart, signed DNR as of 1899 on 10/25/1710/25 Patient was made DNR/DNI by of Patient Disposition: 10/28 reached out to Mrs. Wolf, if family does want patient on dialysis: dialysis needs to be changed, if patient's family wants patient on dialysis, reached out to surgery team. As of 10/28, surgery was consulted to change permacath for dialysis. Patient received dialsysis today. During dialysis, patient developed sinus tachycardia- continue monitoring on telemetry. 10/29 Patient's family wants dialysis but does not want surgery to change permacath for dialysis Patient has a left ischial ulcer, stage III 11/04 1 u PRBC delivered with dialysis today 11/07 midline needs to be replaced by PICC line nurse 11/09 negative growth in new blood cultures mycafungin for 14 days Merrem for 14 days metronidazole patient's WBC is 14 and stable 11/[address] Lawrence [facility] and of patient will discuss changing decision of permacath replacement/removal. Maryann, palliative care nurse to speak to family about placing Patient on Hospice. Jessica for left arm midline for tuesday. f/u duplex of upper extremities <Cullen Barth - Last Filed: 11/07/17 20:08> Objective - Vital Signs/Intake and Output Vital Signs (last 24 hours): Temp Pulse Resp BP Pulse Ox 98.9 F 118 H 22 107/35 L 95 11/07/17 16:00 11/07/17 16:21 11/07/17 16:21 11/07/17 16:21 11/07/17 16:21 Intake and Output: 11/07/17 11/08/17 18:59 06:59 Intake Total 1340 Output Total 200 Balance 1140 - Medications Medications: Current Medications Ascorbic Acid (Vitamin C 500 Mg Tab) 500 mg PEG DAILY [facility] Last Admin: 11/07/17 13:04 Dose: 500 mg Aspirin (Aspirin Chewable) 81 mg PO DAILY [facility] Last Admin: 11/07/17 13:08 Dose: 81 mg Calcitriol (Rocaltrol) 0.25 mcg PEG DAILY [facility] Last Admin: 11/07/17 13:06 Dose: 0.25 mcg Calcium Acetate (Phoslo) 2,001 mg GT TIDCC [facility] Last Admin: 11/07/17 16:12 Dose: 2,001 mg Epoetin Asim (Procrit) 10,000 unit IV MWF [facility] Last Admin: 11/07/17 11:28 Dose: 10,000 unit Micafungin Sodium 100 mg/ (Sodium Chloride) 100 mls @ 100 mls/hr IV Q24H [facility] Last Admin: 11/07/17 17:35 Dose: 100 mls/hr Meropenem 500 mg/ Sodium (Chloride) 100 mls @ 50 mls/hr IVPB Q8 [facility] Last Admin: 11/07/17 13:09 Dose: 50 mls/hr Insulin Aspart (Novolog) 0 unit SC Q6 [facility] PRN Reason: Protocol Last Admin: 11/07/17 17:42 Dose: 1 unit Insulin Detemir (Levemir) 35 unit SC Q12 [facility] Last Admin: 11/07/17 10:19 Dose: 35 unit Loperamide HCl (Imodium) 1 mg PO Q4H PRN PRN Reason: Diarrhea Last Admin: 11/04/17 21:10 Dose: 1 mg Metoprolol Tartrate (Lopressor) 12.5 mg PEG BID [facility] Last Admin: 11/07/17 17:13 Dose: 12.5 mg Midodrine (Proamatine) 10 mg PO TID [facility] Last Admin: 11/07/17 17:13 Dose: 10 mg Multivitamins (Hexavitamin) 1 tab PEG DAILY [facility] Last Admin: 11/07/17 13:04 Dose: 1 tab Pantoprazole Sodium (Protonix Inj) 40 mg IVP DAILY [facility] Last Admin: 11/07/17 13:03 Dose: 40 mg Rosuvastatin Calcium (Crestor) 10 mg PO HS [facility] Last Admin: 11/06/17 21:26 Dose: 10 mg Saccharomyces Boulardii (Florastor) 250 mg PO BID [facility] Last Admin: 11/07/17 17:13 Dose: 250 mg Vitamin A (Vitamin A & D Oint Ud Foilpak) 0.5 ea TOP Q1H PRN PRN Reason: Dry skin Last Admin: 11/05/17 13:12 Dose: 0.5 ea - Labs Labs: 11/07/17 06:26 11/07/17 06:26 PT 13.4 SECONDS (9.7-12.2) H 10/14/17 16:30 INR 1.2 10/14/17 16:30 APTT 28 SECONDS (21-34) 10/14/17 16:30 Attending/Attestation - Attestation I have personally seen and examined this patient.: Yes I have fully participated in the care of the patient.: Yes I have reviewed all pertinent clinical information, including history, physical exam and plan: Yes Notes (Text): 11/07/17 19:56 Patient was seen and examined at 1 PM 11/07/17 ICU Bed 18 with the Help of Nurse Anusha Exam, assessment and plan were thoroughly gone over with the resident Also on exam: Sacral ulcer extending to involve the bilateral ischial tuberosities: unstageable Right Heal ulcer: unstageable Assessment/Plans 1). Hx Acute Respiratory Failure/ARDS/Cadiac Arrest/NSTEMI * Dr Cortés (cardiology) on the case-->help appreciated * Dr. Mena (pulmonary) on the case-->help appreciated * Code Blue on 08/10: asystole, cardiopulmonary resuscitative measures initiated , requiring 3 epis, bicarbonate, ROSC achieved and intubated and brought to the ICU. Patient has had multiple for hypotension. Latest [employer] COUNSELING AIDE was on 10/14; stable awaiting for tele bed when available. * Atrovent 0.5mg Inhaled RQ6H * Aspirin 81mg PO daily * Lopressor 12.5mg PO BID with holding parameters * Midodrine 10mg PO TID * Crestor 10mg PO qHS 2). Hx Abnormal Stress Test/AICD/CAD * Dr Cortés (cardiology) on the case-->help appreciated * Dr. Mena (pulmonary) on the case-->help appreciated * Code Blue on 08/10: asystole, cardiopulmonary resuscitative measures initiated , requiring 3 epis, bicarbonate, ROSC achieved and intubated and brought to the ICU. Patient has had multiple for hypotension. Latest [employer] COUNSELING AIDE was on 10/14; stable awaiting for tele bed when available. * Aspirin 81mg PO daily * Lopressor 12.5mg PO BID with holding parameters * Midodrine 10mg PO TID * Crestor 10mg PO qHS 3). Hx Atrial Flutter: * stopped Eliquis 10/24/17 secondary significant drop in HgB. Heart Rate is elevated. Ordered for Lopressor 5mg iVX1 on 10/31 * Lopressor 12.5mg PO BID with holding parameters 4). Hx Acute on Chronic Sytolic HF * Aspirin 81mg PO daily * Lopressor 12.5mg PO BID with holding parameters * Midodrine 10mg PO TID * Crestor 10mg PO qHS * Lisinopril was discontinued on 10/14/17 at the time of PRE [employer] COUNSELING AIDE for Hypotension 5). Leukocytosis * Infectious Disease (Dr. Lawrence) on the case-->help appreciated * Blood Culture 10/22/17 is finalized as negative. * Sputum culture 10/14/17 is negative. * Stool cultures 10/20/17 are negative. 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 * Right Arm Midline Tip 10/06/17 culture is negative and removed. Midline Tip Culture 10/26/17 is negative. * Blood Cultures 10/28/17 are negative to date. * Iv ABx: Cefepime (10/12/17 through 10/24/17), Aztreonam (10/13/17 through )), Diflucan (10/14/17 through 10/26/17). * Currently on Meropenem 500 mg IV Q8H (10/28/17), Micofungin 100 mg IV Q24H () Flagyl (10/16/17). * Dr. Lazar spoke with 11/02, she does not want Permacath replaced given cardiac risk for operation/anesthesia. * ID Recommended for permcath and sacral debrdiement by ID, has refused 11/02, and will have to revisit this conversation given elevation in white count ( but as of 11/07/17 it is declining and there have been NO fevers) 6). Hx Pneumonia, Fungemia * ID on the case-->help appreciated * Currently on Meropenem 500 mg IV Q8H (10/28/17-present ), Micofungin 100 mg IV Q24H (10/27/17-present) Flagyl 500 GT Q8H (10/16/17-present). * ID recommends Permcath to be exchanged out and sacral debridement; however, has refused, last had conversation on 11/02 given cardiac risk for invasive operation. Will need to revisit this conversation to affirm this sentiment given elevation in white count 7). Hx HTN: * Lopressor 12.5mg PEG BID with holding parameters 8). Hx CKD on HD --. * Family would like to continue HD through current Permacath and declined surgical intervention to change catheter (due to the Blood Culture 10/24/17 being positive for Reny glabrata) as recommended by Vascular Surgery and Infectious Disease. * Dr. Lazar discussed with at bedside 11/02, she continues to deny the exchange secondary to cardiac risk. * Phoslo 1334mg PO TIDCC * Epocrit 10,000 unit IV MWF 9). Hx DM: * Levemir 35 units [id number] * monitor [id number] * HgbA1c 8.4 10). Hx HLD * Crestor 10mg PO qHS 11). Hx Anemia: * Eliquis stopped 10/24/17 and was transfused 2 units PRBCs. * CBC morning 10/25/17 dropped from 11.2 post trasfusion 10/24/17 to 10.2 morning 10/25/17. * Stool Occult is Positive and GI Dr. Dsouza was reconsulted however no further workup recommended in light of patient current status. * Procrit 10,000 units - * s/p1 unit of PRBC 11/04 given declining H/H * HgB/Hct are currently stable 12). Hx DVT * Eliquis stopped 10/24/17 given positive bloody stool * Repeat dopplers 08/09/17 are negative for DVT 13). Hx UTI: * Yeast on culture 10/24/17. He is currently on Micofungin 100 mg IV Q24H. He may be colonized with this. * ID Recommended for permcath and sacral debrdiement by ID, has refused 11/02 will to revisit this conversation given elevation in white count. 14). Hx Alzheimer's Dementia * CT head w/o contrast (08/10/17):acute os subacute lacune infarct is not excluded in the left basal ganglia inferiorly with definitive chronic lacune identified in the right basal ganglia superiorly. No acute or subacute lobar brain infarction is appreciable by standard CT criteria. Mild age-related neuro * CT Head w/o contrast (10/14/17): no intracranial mass, hemorrhage, or evidence of acute infarct. 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 Old right external capsule ischemic change. Age related atrophy and chronic microvascular ischemic change * Note: patient does listen to his at bedside, follows simple commands 15). Hx Sacral Ulcer: * General surgery (Dr. Forbes) on board-->help appreciated * Bone Scan performed 09/17/17 to check for Osteomyelitis at the Sacrum: negative for osteomyelitis * Currently on MediHoney daily, family has declined further debridement by surgery. Wound care on board * Recommended for permcath and sacral debrdiement by ID, has refused 11/02, and will have to revisit this conversation given elevation in white count. 16). Hx Right Heal Ulcer * Podiatry (Dr. Lundberg) on board-->help appreciated * Prevalon boots * Improved on exam and area of necrosis/unstageable area is decreased. Santyl and Optifoam daily. Pravolon boots 17). Hx Elevated LFTs * Normalized; patient is on statin and Micafungin 18). Diarrhea: * On Rectal Seal and producing dark brown/black stools that are watery. Stool Studies 10/20/17 are negative * On loperamide PRN 19). Hx Hyponatremia: * Normalized 20). Hx PEG Tube: * Vital 1.5 at 50 ml/hour 21). Hx Hypocalcemia: * Calcitriol 22). Prophylactic Measures: * Vitamin C, Dulcolax PRN, Pepcid, MVI, Zofran PRN, Florastor * Started on dialysis 08/15/17 * s/p Right Chest Permcath 08/22/17--->Recommended by ID to exchange out but has refused. Will need to revisit given elevation in WBC * S/P Tracheostomy 08/22/17 * S/P Peg tube placement 08/25/17 * S/p insertion of right posterior chest tube 08/19-->removed 08/24/17 * Passy Flex Trach placed 09/15/17 * s/p new mid line (left upper extremity) 10/26/17 prior mid line removed and tip sent for culture and was negative. Midline left arm was removed 11/06/17 due to bleeding from site. F/U Venous Duplex of Left Arm 11/08/17 and if negative will have PICC Line Nurse Jessica place new midline on 11/09/17. * (Jovita Serrano): * Patient is now: DNR Disposition: Recommended by ID to get sacral debridement and permacath exchange out. Dr. Lazar spoke with on Tuesday, 11/02 but had refused. Will need to address given elevated in white count. Will speak with Palliative Care Nurse Loni 11/08/17 and does not want debridement of ulcers, then consideration should be made about placing patient on Hospice care. Can Piler Demetria reveals 11/07/17 that never changed patient insurance [employer] to Medicare as instructed. Therefore placement will have to now occur outside of [facility]. Cullen Barth D.O.
[2017-11-07] MEDS: Insulin Detemir 100 units/ml Vial (Levemir) SC SCH ×2 (10:19→21:08)
--- NOTE | 2017-11-07 10:31 | CP.PCM.PN ---
Subjective - Date & Time of Evaluation Date of Evaluation: 11/07/17 Time of Evaluation: 10:28 - Subjective Subjective: Seen on dialysis To UF 800ml- tolerating ok same lethargic state- not responsive BP adequate; same tachycardia Objective - Vital Signs/Intake and Output Vital Signs (last 24 hours): Temp Pulse Resp BP Pulse Ox 98.4 F 121 H 28 H 104/52 L 99 11/07/17 09:30 11/07/17 10:17 11/07/17 10:17 11/07/17 10:17 11/07/17 10:17 Intake and Output: 11/07/17 11/07/17 06:59 18:59 Intake Total 1140 Output Total 150 Balance 990 - Medications Medications: Current Medications Ascorbic Acid (Vitamin C 500 Mg Tab) 500 mg PEG DAILY [facility] Last Admin: 11/06/17 09:15 Dose: 500 mg Aspirin (Aspirin Chewable) 81 mg PO DAILY [facility] Last Admin: 11/06/17 09:19 Dose: 81 mg Calcitriol (Rocaltrol) 0.25 mcg PEG DAILY [facility] Last Admin: 11/06/17 09:15 Dose: 0.25 mcg Calcium Acetate (Phoslo) 2,001 mg GT TIDCC [facility] Epoetin Chencho (Procrit) 10,000 unit IV MWF [facility] Last Admin: 11/04/17 12:54 Dose: 10,000 unit Micafungin Sodium 100 mg/ (Sodium Chloride) 100 mls @ 100 mls/hr IV Q24H [facility] Last Admin: 11/06/17 18:04 Dose: 100 mls/hr Meropenem 500 mg/ Sodium (Chloride) 100 mls @ 50 mls/hr IVPB Q8 [facility] Last Admin: 11/07/17 05:53 Dose: 50 mls/hr Insulin Aspart (Novolog) 0 unit SC Q6 [facility] PRN Reason: Protocol Last Admin: 11/07/17 06:07 Dose: 1 unit Insulin Detemir (Levemir) 35 unit SC Q12 [facility] Last Admin: 11/07/17 10:19 Dose: 35 unit Loperamide HCl (Imodium) 1 mg PO Q4H PRN PRN Reason: Diarrhea Last Admin: 11/04/17 21:10 Dose: 1 mg Metoprolol Tartrate (Lopressor) 12.5 mg PEG BID [facility] Last Admin: 11/06/17 18:06 Dose: 12.5 mg Metronidazole (Flagyl) 500 mg GT Q8 [facility] Last Admin: 11/07/17 05:53 Dose: 500 mg Midodrine (Proamatine) 10 mg PO TID [facility] Last Admin: 11/07/17 10:19 Dose: 10 mg Multivitamins (Hexavitamin) 1 tab PEG DAILY [facility] Last Admin: 11/06/17 09:15 Dose: 1 tab Pantoprazole Sodium (Protonix Inj) 40 mg IVP DAILY [facility] Last Admin: 11/06/17 09:16 Dose: 40 mg Rosuvastatin Calcium (Crestor) 10 mg PO HS [facility] Last Admin: 11/06/17 21:26 Dose: 10 mg Saccharomyces Boulardii (Florastor) 250 mg PO BID [facility] Last Admin: 11/06/17 18:06 Dose: 250 mg Vitamin A (Vitamin A & D Oint Ud Foilpak) 0.5 ea TOP Q1H PRN PRN Reason: Dry skin Last Admin: 11/05/17 13:12 Dose: 0.5 ea - Labs Labs: 11/07/17 06:26 11/07/17 06:26 PT 13.4 SECONDS (9.7-12.2) H 10/14/17 16:30 INR 1.2 10/14/17 16:30 APTT 28 SECONDS (21-34) 10/14/17 16:30 - Constitutional Appears: Non-toxic, In Acute Distress, Chronically Ill - Head Exam Head Exam: ATRAUMATIC, NORMAL INSPECTION - Respiratory Exam Respiratory Exam: Rhonchi, Respiratory Distress - Cardiovascular Exam Cardiovascular Exam: Tachycardia, Irregular Rhythm - GI/Abdominal Exam GI & Abdominal Exam: Soft. absent: Tenderness - Extremities Exam Extremities Exam: Normal Inspection. absent: Tenderness - Neurological Exam Neurological Exam: Altered, Motor Sensory Deficit - Skin Skin Exam: Dry, Warm Assessment and Plan (1) Acute on chronic renal failure Status: Resolved (2) CAD (coronary artery disease) Status: Chronic (3) CHF exacerbation Status: Chronic (4) Type 2 diabetes mellitus with diabetic nephropathy Status: Acute (5) Cardiorenal disease Status: Acute (6) ESRD (end stage renal disease) Status: Acute (7) Sacral decubitus ulcer Status: Acute - Assessment and Plan (Free Text) Plan: same dialysis MWF with mild UF goal IV antimicrobials supportive measures family refused cath change
[2017-11-07] MEDS: Epoetin Alfa 10,000 unit/ml Dialysis IV SCH (11:28)
[2017-11-07] MEDS: Saccharomyces Boulardi 250 mg Cap PO SCH ×2 (13:03→17:13)
[2017-11-07] MEDS: Multiple Vitamins Tab PEG SCH (13:04)
[2017-11-07] MEDS: Micafungin 100 MG in Sodium Chloride 0.9% 100 ML IV SCH (17:35)
--- NOTE | 2017-11-07 20:02 | CP.PCM.PN ---
Subjective - Date & Time of Evaluation Date of Evaluation: 11/07/17 Time of Evaluation: 04:20 - Subjective Subjective: Dictated Objective - Vital Signs/Intake and Output Vital Signs (last 24 hours): Temp Pulse Resp BP Pulse Ox 98.9 F 118 H 22 107/35 L 95 11/07/17 16:00 11/07/17 16:21 11/07/17 16:21 11/07/17 16:21 11/07/17 16:21 Intake and Output: 11/07/17 11/08/17 18:59 06:59 Intake Total 1340 Output Total 200 Balance 1140 - Medications Medications: Current Medications Ascorbic Acid (Vitamin C 500 Mg Tab) 500 mg PEG DAILY [facility] Last Admin: 11/07/17 13:04 Dose: 500 mg Aspirin (Aspirin Chewable) 81 mg PO DAILY [facility] Last Admin: 11/07/17 13:08 Dose: 81 mg Calcitriol (Rocaltrol) 0.25 mcg PEG DAILY [facility] Last Admin: 11/07/17 13:06 Dose: 0.25 mcg Calcium Acetate (Phoslo) 2,001 mg GT TIDCC [facility] Last Admin: 11/07/17 16:12 Dose: 2,001 mg Epoetin Chencho (Procrit) 10,000 unit IV MWF [facility] Last Admin: 11/07/17 11:28 Dose: 10,000 unit Micafungin Sodium 100 mg/ (Sodium Chloride) 100 mls @ 100 mls/hr IV Q24H [facility] Last Admin: 11/07/17 17:35 Dose: 100 mls/hr Meropenem 500 mg/ Sodium (Chloride) 100 mls @ 50 mls/hr IVPB Q8 [facility] Last Admin: 11/07/17 13:09 Dose: 50 mls/hr Insulin Aspart (Novolog) 0 unit SC Q6 [facility]ERNANDO PRN Reason: Protocol Last Admin: 11/07/17 17:42 Dose: 1 unit Insulin Detemir (Levemir) 35 unit SC Q12 [facility] Last Admin: 11/07/17 10:19 Dose: 35 unit Loperamide HCl (Imodium) 1 mg PO Q4H PRN PRN Reason: Diarrhea Last Admin: 11/04/17 21:10 Dose: 1 mg Metoprolol Tartrate (Lopressor) 12.5 mg PEG BID [facility] Last Admin: 12/11/17 17:13 Dose: 12.5 mg Midodrine (Proamatine) 10 mg PO TID [facility] Last Admin: 11/07/17 17:13 Dose: 10 mg Multivitamins (Hexavitamin) 1 tab PEG DAILY [facility] Last Admin: 11/07/17 13:04 Dose: 1 tab Pantoprazole Sodium (Protonix Inj) 40 mg IVP DAILY [facility] Last Admin: 11/07/17 13:03 Dose: 40 mg Rosuvastatin Calcium (Crestor) 10 mg PO HS [facility] Last Admin: 11/06/17 21:26 Dose: 10 mg Saccharomyces Boulardii (Florastor) 250 mg PO BID [facility] Last Admin: 11/07/17 17:13 Dose: 250 mg Vitamin A (Vitamin A & D Oint Ud Foilpak) 0.5 ea TOP Q1H PRN PRN Reason: Dry skin Last Admin: 11/05/17 13:12 Dose: 0.5 ea - Labs Labs: 11/07/17 06:26 11/07/17 06:26 PT 13.4 SECONDS (9.7-12.2) H 10/14/17 16:30 INR 1.2 10/14/17 16:30 APTT 28 SECONDS (21-34) 10/14/17 16:30
--- NOTE | 2017-11-08 01:13 | PN ---
DATE: INFECTIOUS DISEASE FOLLOWUP SUBJECTIVE: The patient remains in the ICU. He is noncommunicative, but in no respiratory distress, remains tachycardic. PHYSICAL EXAMINATION: VITAL SIGNS: T-max is 98.9, pulse 118, blood pressure 107/35, respirations 20. HEENT: Head is atraumatic, normocephalic. He has a trach mask. LUNGS: Clear. Occasional rhonchi. HEART: S1 and S2 regular, tachycardic. ABDOMEN: Soft, nontender. He has a PEG. EXTREMITIES: Have no edema, but sacral decubitus is present. The patient's nurse was changing his position. 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 She called in her brother, who was [place]-speaking, and I spoke to him to communicate with the grandmother. White count is 14.9, hemoglobin 10.2, hematocrit 31.9, platelet count is 794. C. diff has been negative. So I told them to discontinue the Flagyl and to continue Mycamine at this time. Cultures, however, on antifungal have come out negative at this time. He remains with a big decubitus on the back, which needs local wound care, position change, nutrition, and vitamins. His last positive culture was on 10/24, which was Reny glabrata. Hence, I suggest to change all the lines. Allan Lawrence MD
[2017-11-08] MEDS: (Novolog) Insulin Aspart, Recombinant 100 u/ml 10 ml vial SC SCH ×4 (05:43→19:00)
[2017-11-08] MEDS: Meropenem 500 MG in Sodium Chloride 0.9% 100 ML IVPB SCH ×3 (05:43→22:58)
[2017-11-08 06:44] LABS: BASO # 0.1 K/uL (0.0-0.2); BASO % 0.6 % (0.0-2.0); EOS # 0.3 K/uL (0.0-0.7); HEMATOCRIT 30.8 % (35.0-51.0); LYMPH # 2.3 K/uL (1.0-4.3); LYMPH % 17.5 % (20.0-40.0); MEAN CELL VOLUME 92.4 fL (80.0-94.0); MEAN CORPUSCULAR HEMOGLOBIN 29.5 pg (27.0-31.0); MEAN CORPUSCULAR HGB CONC 31.9 g/dL (33.0-37.0); MEAN PLATELET VOLUME 7.6 fL (7.2-11.7); MONO # 0.8 K/uL (0.0-0.8); MONO % 6.4 % (0.0-10.0); NRBC % 0.1 % (0.0-2.0); RED CELL DISTRIBUTION WIDTH 24.3 % (11.5-14.5); WHITE BLOOD COUNT 13.1 K/uL (4.8-10.8)
--- NOTE | 2017-11-08 06:44 | CP.PCM.PN ---
Subjective - Date & Time of Evaluation Date of Evaluation: 11/07/17 Time of Evaluation: 09:00 - Subjective Subjective: no clinical change vent dependent non-verbal Awake, follows verbal commands Objective - Vital Signs/Intake and Output Vital Signs (last 24 hours): Temp Pulse Resp BP Pulse Ox 98.3 F 111 H 20 144/54 L 98 11/08/17 04:00 11/08/17 04:04 11/08/17 04:04 11/08/17 04:05 11/08/17 04:04 Intake and Output: 11/07/17 11/08/17 18:59 06:59 Intake Total 1340 1090 Output Total 200 50 Balance 1140 1040 - Medications Medications: Current Medications Ascorbic Acid (Vitamin C 500 Mg Tab) 500 mg PEG DAILY [facility] Last Admin: 11/07/17 13:04 Dose: 500 mg Aspirin (Aspirin Chewable) 81 mg PO DAILY [facility] Last Admin: 11/07/17 13:08 Dose: 81 mg Calcitriol (Rocaltrol) 0.25 mcg PEG DAILY [facility] Last Admin: 11/07/17 13:06 Dose: 0.25 mcg Calcium Acetate (Phoslo) 2,001 mg GT TIDCC [facility] Last Admin: 11/07/17 16:12 Dose: 2,001 mg Epoetin Chencho (Procrit) 10,000 unit IV MWF [facility] Last Admin: 11/07/17 11:28 Dose: 10,000 unit Micafungin Sodium 100 mg/ (Sodium Chloride) 100 mls @ 100 mls/hr IV Q24H [facility] Last Admin: 11/07/17 17:35 Dose: 100 mls/hr Meropenem 500 mg/ Sodium (Chloride) 100 mls @ 50 mls/hr IVPB Q8 [facility] Last Admin: 11/08/17 05:43 Dose: 50 mls/hr Insulin Aspart (Novolog) 0 unit SC Q6 [facility] PRN Reason: Protocol Last Admin: 11/08/17 05:43 Dose: 1 unit Insulin Detemir (Levemir) 35 unit SC Q12 [facility] Last Admin: 11/07/17 21:08 Dose: 35 unit Loperamide HCl (Imodium) 1 mg PO Q4H PRN PRN Reason: Diarrhea Last Admin: 11/04/17 21:10 Dose: 1 mg Metoprolol Tartrate (Lopressor) 12.5 mg PEG BID [facility] Last Admin: 11/07/17 17:13 Dose: 12.5 mg Midodrine (Proamatine) 10 mg PO TID [facility] Last Admin: 11/07/17 17:13 Dose: 10 mg Multivitamins (Hexavitamin) 1 tab PEG DAILY [facility] Last Admin: 11/07/17 13:04 Dose: 1 tab Pantoprazole Sodium (Protonix Inj) 40 mg IVP DAILY [facility] Last Admin: 11/07/17 13:03 Dose: 40 mg Rosuvastatin Calcium (Crestor) 10 mg PO HS [facility] Last Admin: 11/07/17 21:08 Dose: 10 mg Saccharomyces Boulardii (Florastor) 250 mg PO BID [facility] Last Admin: 11/07/17 17:13 Dose: 250 mg Vitamin A (Vitamin A & D Oint Ud Foilpak) 0.5 ea TOP Q1H PRN PRN Reason: Dry skin Last Admin: 11/05/17 13:12 Dose: 0.5 ea - Labs Labs: 11/07/17 06:26 11/07/17 06:26 PT 13.4 SECONDS (9.7-12.2) H 10/14/17 16:30 INR 1.2 10/14/17 16:30 APTT 28 SECONDS (21-34) 10/14/17 16:30 - Constitutional Appears: Chronically Ill - Head Exam Head Exam: NORMAL INSPECTION - Eye Exam Eye Exam: absent: Scleral icterus - Neck Exam Neck Exam: Full ROM - Respiratory Exam Respiratory Exam: Decreased Breath Sounds - Cardiovascular Exam Cardiovascular Exam: REGULAR RHYTHM - GI/Abdominal Exam GI & Abdominal Exam: Soft. absent: Tenderness - Extremities Exam Extremities Exam: absent: Pedal Edema - Neurological Exam Neurological Exam: Altered Assessment and Plan - Assessment and Plan (Free Text) Assessment: Metabolic/Hypoxic encephalopathy s/p Cardiac arrest Respiratory Failure CAD Plan: Cont supportive tx [facility] prognosis POOR
[2017-11-08 06:56] LABS: ALB/GLOB RATIO 0.9 (1.0-2.1); BILIRUBIN,TOTAL 0.4 mg/dL (0.2-1.3); CALCIUM 7.5 mg/dl (8.6-10.4); PHOSPHOROUS 4.8 mg/dL (2.5-4.5); POTASSIUM 4.5 mmol/L (3.6-5.2); TOTAL PROTEIN 5.2 g/dL (6.3-8.3)
--- NOTE | 2017-11-08 07:07 | CP.PCM.PN ---
<Tangela Sanchez - Last Filed: 11/08/17 17:09> Subjective - Date & Time of Evaluation Date of Evaluation: 11/08/17 Time of Evaluation: 07:05 - Subjective Subjective: Progress note for Dr. Cullen Barth Patient seen and examined at bedside. Patient non-verbal and moving his upper extremities. Patient nodded in response to questions Objective - Vital Signs/Intake and Output Vital Signs (last 24 hours): Temp Pulse Resp BP Pulse Ox 98.3 F 111 H 20 144/54 L 98 11/08/17 04:00 11/08/17 04:04 11/08/17 04:04 11/08/17 04:05 11/08/17 04:04 Intake and Output: 11/08/17 11/08/17 06:59 18:59 Intake Total 1090 Output Total 50 Balance 1040 - Medications Medications: Current Medications Ascorbic Acid (Vitamin C 500 Mg Tab) 500 mg PEG DAILY [facility] Last Admin: 11/07/17 13:04 Dose: 500 mg Aspirin (Aspirin Chewable) 81 mg PO DAILY [facility] Last Admin: 11/07/17 13:08 Dose: 81 mg Calcitriol (Rocaltrol) 0.25 mcg PEG DAILY [facility] Last Admin: 11/07/17 13:06 Dose: 0.25 mcg Calcium Acetate (Phoslo) 2,001 mg GT TIDCC [facility] Last Admin: 11/07/17 16:12 Dose: 2,001 mg Epoetin Asim (Procrit) 10,000 unit IV MWF [facility] Last Admin: 11/07/17 11:28 Dose: 10,000 unit Micafungin Sodium 100 mg/ (Sodium Chloride) 100 mls @ 100 mls/hr IV Q24H [facility] Last Admin: 11/07/17 17:35 Dose: 100 mls/hr Meropenem 500 mg/ Sodium (Chloride) 100 mls @ 50 mls/hr IVPB Q8 [facility] Last Admin: 11/08/17 05:43 Dose: 50 mls/hr Insulin Aspart (Novolog) 0 unit SC Q6 LUIS FERNANDO PRN Reason: Protocol Last Admin: 11/08/17 05:43 Dose: 1 unit Insulin Detemir (Levemir) 35 unit SC Q12 [facility] Last Admin: 11/07/17 21:08 Dose: 35 unit Loperamide HCl (Imodium) 1 mg PO Q4H PRN PRN Reason: Diarrhea Last Admin: 11/04/17 21:10 Dose: 1 mg Metoprolol Tartrate (Lopressor) 12.5 mg PEG BID [facility] Last Admin: 11/07/17 17:13 Dose: 12.5 mg Midodrine (Proamatine) 10 mg PO TID [facility] Last Admin: 11/07/17 17:13 Dose: 10 mg Multivitamins (Hexavitamin) 1 tab PEG DAILY [facility] Last Admin: 11/07/17 13:04 Dose: 1 tab Pantoprazole Sodium (Protonix Inj) 40 mg IVP DAILY [facility] Last Admin: 11/07/17 13:03 Dose: 40 mg Rosuvastatin Calcium (Crestor) 10 mg PO HS [facility] Last Admin: 11/07/17 21:08 Dose: 10 mg Saccharomyces Boulardii (Florastor) 250 mg PO BID [facility] Last Admin: 11/07/17 17:13 Dose: 250 mg Vitamin A (Vitamin A & D Oint Ud Foilpak) 0.5 ea TOP Q1H PRN PRN Reason: Dry skin Last Admin: 11/05/17 13:12 Dose: 0.5 ea - Labs Labs: 11/08/17 06:22 11/08/17 06:22 PT 13.4 SECONDS (9.7-12.2) H 10/14/17 16:30 INR 1.2 10/14/17 16:30 APTT 28 SECONDS (21-34) 10/14/17 16:30 - Constitutional Appears: Non-toxic, No Acute Distress - Head Exam Head Exam: ATRAUMATIC, NORMAL INSPECTION, NORMOCEPHALIC - Eye Exam Eye Exam: EOMI, Normal appearance - ENT Exam ENT Exam: Mucous Membranes Moist - Neck Exam Neck Exam: Full ROM, Normal Inspection Additional comments: no tracheal deviation - Respiratory Exam Respiratory Exam: NORMAL BREATHING PATTERN Additional comments: no accessory use - Cardiovascular Exam Cardiovascular Exam: REGULAR RHYTHM, +S1, +S2 - GI/Abdominal Exam GI & Abdominal Exam: Distended, Soft Additional comments: peg tube in place - Extremities Exam Extremities Exam: Normal Inspection Additional comments: no pedal edema - Neurological Exam Neurological Exam: Awake - Psychiatric Exam Psychiatric exam: Normal Affect, Normal Mood - Skin Skin Exam: Dry, Normal Color Additional comments: sacral and ischial ulcers unstageable Assessment and Plan - Assessment and Plan (Free Text) Plan: Assessment: 77M with ARDS s/p cardiac arrest, with pulmonary edema and NSTEMI * Ipratropium 0.02% (atrovent) 0.5mg IH RQ6H * 10/24 CXR: questionable interval atelectasis or infiltrate in medial right base * 10/23 mid bibasilar atelectasis. questionable small left-sided effusion * CXR left lobe atelectasis v pna * 10/26 right midline removed, tip of midline sent for culture 10/26, new midline placed on left arm 10/26 * 10/[address] Lawrence: fungal infection in blood, lines should be changed. * 10/[address] Lawrence: fungal infection in blood, lines should be changed. * reach out to Mrs. Wolf, if family does want patient on dialysis: dialysis needs to be changed * f/u echo to rule out vegetations * 10/28: Family wants patient to receive dialysis; consulted surgery for permacath replacement. * Surgery consulted, Dr. Forbes * Patient received dialysis today; developed sinus tachycardia during; continue to monitor on telemetry. * 10/29 Digoxin 0.25 mg IV was given to patient for the sinus tachycardia. * ECHO: LV function markedly reduced, diffuse hypokinesis; septum is akinetic; LV EF 20%; Trace AR. * Continue mycamine 100mg POQD, merrem 500 POQD, flagy 500mg GT Q8 Constipation, resolved * Dulcolax 10mg KS Once PRN 10/21, patient had a dark brown BM yesterday, none today per nursing staff * Patient is having diarrhea in the Flexseal. Cultures were taken, currently negative * GI Dr. Wills consulted: does not feel that it would be in the best interest of the patient at this time to do any invasive procedure or examination. Diarrhea * One dose of immodium given overnight Hypotensive, resolving, stable * Metoprolol on hold HTN * 10/31 Lopressor 5mg once was given today for high blood pressure Leukocytosis * current cultures negative (blood, stool and wound) * 10/14 urine culture: yeast * 10/14 blood culture is positive for yeast * f/u stool culture from rectoseal from 10/23 * 10/26 WBC 25.5 * 10/27 WBC 17 * Saccharomyces boulardi (florastor) 250mg PO BID * Blood cx x1 from 10/24: positive for Reny Glabrata * Second blood cx showed no growth * As per ID, suggested replacing dialysis lines due to fungal infection * 10/26: catheter tip cx: no growth * Continue mycamine 100mg POQD, Flagyl 500mg GT Q8m Merem 500mg IV Q8 Abnormal Stress test, history of AICD, hx CAD * ASA 81mg POQD * Rosuvastatin [id number] POQHS Atrial Flutter, resolved * Cardiology Consult (Dr. Cortés) * Aspirin 81mg PO daily * c/w Eliquis 2.5mg PO bid * Eliquis held d/t Hgb 6.6 10/24 Low hemoglobin * Epoeitin asim 61382 u IV M, W, F * 10/24: Eliquis held d/t Hgb 6.6; 2uPRBC administered after dialysis * Hgb 11.2 after 2uPRBC * 11/04 1 uPRBC Hypocalcemia * Calcitriol 0.25 mcg PEG daily UTI, yeast positive * 10/14 urine positive for yeast * Discontinued Diflucan 100mg/50cc NS @ 55cc/hr QD Unstageable Sacral Ulcer, Left Ear Auriclular ulcer, Right Heal Ulcer * Continue to monitor HTN, medications held until blood pressure is higher * Midodrine (proamatine) * Metoprolol 25mg PEG BID BS DM * Levemir 25 units SC Q12 * ISS * Glucose accuchecks CKD with Dialysis * Dialysis MWF via permacath * Patient received dialysis today, 10/28. * During dialysis, patient developed sinus tachycardia. continue to monitor on telemetry Hyperphosphatemia patient is on Phoslo [address] Miranda Prophylaxis * Pepcid 20mg POQD * Zofran 4mg IVP Q8H PRN Diet: tube feeds: Vital 1.2 initial rate 20cc/hr with goal rate 70cc/hr Patient is at goal rate Social Work Patient's new insurance does not accept LTAC. New insurance starts October 28 Currently waiting for [place] [facility] to accept the patient when new insurance starts 10/28/17 renal social worker to provide letter to have daughter in [facility] get a visa to come to the [place] to see her father. Comfort measures in place. POLST in chart, signed DNR as of 1899 on 10/25/1710/25 Patient was made DNR/DNI by of Patient Disposition: 10/28 reached out to Mrs. Wolf, if family does want patient on dialysis: dialysis needs to be changed, if patient's family wants patient on dialysis, reached out to surgery team. As of 10/28, surgery was consulted to change permacath for dialysis. Patient received dialsysis today. During dialysis, patient developed sinus tachycardia- continue monitoring on telemetry. 10/29 Patient's family wants dialysis but does not want surgery to change permacath for dialysis Patient has a left ischial ulcer, stage III 11/04 1 u PRBC delivered with dialysis today 11/07 midline needs to be replaced by PICC line nurse 11/09 negative growth in new blood cultures mycafungin for 14 days Merrem for 14 days metronidazole patient's WBC is 14 and stable 11/[address] Lawrence, granddaughter and of patient will discuss changing decision of permacath replacement/removal. Maryann, palliative care nurse to speak to family about placing Patient on Hospice. Jessica for left arm midline for Tuesday. f/u duplex of upper extremities 11/08 Duplex of upper extremities. DVT discussed with Dr. Cullen Sanchez DO PGY1 <Cullen Barth - Last Filed: 11/08/17 20:38> Objective - Vital Signs/Intake and Output Vital Signs (last 24 hours): Temp Pulse Resp BP Pulse Ox 97.9 F 104 H 20 121/62 95 11/08/17 16:00 11/08/17 16:00 11/08/17 16:00 11/08/17 16:00 11/08/17 16:00 Intake and Output: 11/08/17 11/09/17 18:59 06:59 Output Total 500 Balance -500 - Medications Medications: Current Medications Ascorbic Acid (Vitamin C 500 Mg Tab) 500 mg PEG DAILY [facility] Last Admin: 11/08/17 09:34 Dose: 500 mg Aspirin (Aspirin Chewable) 81 mg PO DAILY [facility] Last Admin: 11/08/17 09:33 Dose: 81 mg Calcitriol (Rocaltrol) 0.25 mcg PEG DAILY [facility] Last Admin: 11/08/17 09:33 Dose: 0.25 mcg Calcium Acetate (Phoslo) 2,001 mg GT TIDCC [facility] Last Admin: 11/08/17 18:45 Dose: 2,001 mg Epoetin Asim (Procrit) 10,000 unit IV MWF [facility] Last Admin: 11/07/17 11:28 Dose: 10,000 unit Micafungin Sodium 100 mg/ (Sodium Chloride) 100 mls @ 100 mls/hr IV Q24H [facility] Last Admin: 11/08/17 18:47 Dose: 100 mls/hr Meropenem 500 mg/ Sodium (Chloride) 100 mls @ 50 mls/hr IVPB Q8 [facility] Last Admin: 11/08/17 13:12 Dose: 50 mls/hr Insulin Aspart (Novolog) 0 unit SC Q6 LUIS FERNANDO PRN Reason: Protocol Last Admin: 11/08/17 11:40 Dose: Not Given Insulin Detemir (Levemir) 35 unit SC Q12 [facility] Last Admin: 11/08/17 09:35 Dose: 35 unit Loperamide HCl (Imodium) 1 mg PO Q4H PRN PRN Reason: Diarrhea Last Admin: 11/04/17 21:10 Dose: 1 mg Metoprolol Tartrate (Lopressor) 12.5 mg PEG BID [facility] Last Admin: 11/08/17 18:46 Dose: 12.5 mg Midodrine (Proamatine) 10 mg PO TID [facility] Last Admin: 11/08/17 18:47 Dose: 10 mg Multivitamins (Hexavitamin) 1 tab PEG DAILY [facility] Last Admin: 11/08/17 09:34 Dose: 1 tab Pantoprazole Sodium (Protonix Inj) 40 mg IVP DAILY [facility] Last Admin: 11/08/17 09:34 Dose: 40 mg Rosuvastatin Calcium (Crestor) 10 mg PO HS [facility] Last Admin: 11/07/17 21:08 Dose: 10 mg Saccharomyces Boulardii (Florastor) 250 mg PO BID [facility] Last Admin: 11/08/17 18:46 Dose: 250 mg Vitamin A (Vitamin A & D Oint Ud Foilpak) 0.5 ea TOP Q1H PRN PRN Reason: Dry skin Last Admin: 11/05/17 13:12 Dose: 0.5 ea - Labs Labs: 11/08/17 06:22 11/08/17 06:22 PT 13.4 SECONDS (9.7-12.2) H 10/14/17 16:30 INR 1.2 10/14/17 16:30 APTT 28 SECONDS (21-34) 10/14/17 16:30 Attending/Attestation - Attestation I have personally seen and examined this patient.: Yes I have fully participated in the care of the patient.: Yes I have reviewed all pertinent clinical information, including history, physical exam and plan: Yes Notes (Text): 11/08/17 20:19 Patient was seen and examined at 6 PM 11/08/17 355 A with the Help of Nurse Beth who helped to translate Pakistani for the who was present at bedside Exam, assessment and plan were thoroughly gone over with the resident Also on exam: Sacral ulcer extending to involve the bilateral ischial tuberosities: unstageable Right Heal ulcer: unstageable Assessment/Plans 1). Hx Acute Respiratory Failure/ARDS/Cadiac Arrest/NSTEMI * Dr Cortés (cardiology) on the case-->help appreciated * Dr. Mena (pulmonary) on the case-->help appreciated * Code Blue on 08/10: asystole, cardiopulmonary resuscitative measures initiated , requiring 3 epis, bicarbonate, ROSC achieved and intubated and brought to the ICU. Patient has had multiple for hypotension. Latest HONING MACHINE OPERATOR TOOL was on 10/14; stable awaiting for tele bed when available. * Atrovent 0.5mg Inhaled RQ6H * Aspirin 81mg PO daily * Lopressor 12.5mg PO BID with holding parameters * Midodrine 10mg PO TID * Crestor 10mg PO qHS 2). Hx Abnormal Stress Test/AICD/CAD * Dr Cortés (cardiology) on the case-->help appreciated * Dr. Mena (pulmonary) on the case-->help appreciated * Code Blue on 08/10: asystole, cardiopulmonary resuscitative measures initiated , requiring 3 epis, bicarbonate, ROSC achieved and intubated and brought to the ICU. Patient has had multiple for hypotension. Latest HONING MACHINE OPERATOR TOOL was on 10/14; stable awaiting for tele bed when available. * Aspirin 81mg PO daily * Lopressor 12.5mg PO BID with holding parameters * Midodrine 10mg PO TID * Crestor 10mg PO qHS 3). Hx Atrial Flutter: * stopped Eliquis 10/24/17 secondary significant drop in HgB. Heart Rate is elevated. Ordered for Lopressor 5mg iVX1 on 10/31 * Lopressor 12.5mg PO BID with holding parameters 4). Hx Acute on Chronic Sytolic HF * Aspirin 81mg PO daily * Lopressor 12.5mg PO BID with holding parameters * Midodrine 10mg PO TID * Crestor 10mg PO qHS * Lisinopril was discontinued on 10/14/17 at the time of HONING MACHINE OPERATOR TOOL for Hypotension 5). Leukocytosis * Infectious Disease (Dr. Lawrence) on the case-->help appreciated * Blood Culture 10/22/17 is finalized as negative. * Sputum culture 10/14/17 is negative. * Stool cultures 10/20/17 are negative. 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 * Right Arm Midline Tip 10/06/17 culture is negative and removed. Midline Tip Culture 10/26/17 is negative. * Blood Cultures 10/28/17 are negative to date. * Iv ABx: Cefepime (10/12/17 through 10/24/17), Aztreonam (10/13/17 through )), Diflucan (10/14/17 through 10/26/17). * Currently on Meropenem 500 mg IV Q8H (10/28/17), Micofungin 100 mg IV Q24H () Flagyl (10/16/17). * Dr. Lazar spoke with 11/02, she does not want Permacath replaced given cardiac risk for operation/anesthesia. * ID Recommended for permcath and sacral debrdiement by ID, has refused 11/02, and will have to revisit this conversation given elevation in white count ( but as of 11/07/17 it is declining and there have been NO fevers) 6). Hx Pneumonia, Fungemia * ID on the case-->help appreciated * Currently on Meropenem 500 mg IV Q8H (10/28/17-present ), Micofungin 100 mg IV Q24H (10/27/17-present) Flagyl 500 GT Q8H (10/16/17-present). * ID recommends Permcath to be exchanged out and sacral debridement; however, has refused, last had conversation on 11/02 given cardiac risk for invasive operation. Will need to revisit this conversation to affirm this sentiment given elevation in white count 7). Hx HTN: * Lopressor 12.5mg PEG BID with holding parameters 8). Hx CKD on HD --. * Family would like to continue HD through current Permacath and declined surgical intervention to change catheter (due to the Blood Culture 10/24/17 being positive for Reny glabrata) as recommended by Vascular Surgery and Infectious Disease. * Dr. Lazar discussed with at bedside 11/02, she continues to deny the exchange secondary to cardiac risk. * Phoslo 1334mg PO TIDCC * Epocrit 10,000 unit IV MWF 9). Hx DM: * Levemir 35 units [id number] * monitor [id number] * HgbA1c 8.4 10). Hx HLD * Crestor 10mg PO qHS 11). Hx Anemia: * Eliquis stopped 10/24/17 and was transfused 2 units PRBCs. * CBC morning 10/25/17 dropped from 11.2 post trasfusion 10/24/17 to 10.2 morning 10/25/17. * Stool Occult is Positive and GI Dr. Dsouza was reconsulted however no further workup recommended in light of patient current status. * Procrit 10,000 units - * s/p1 unit of PRBC 11/04 given declining H/H * HgB/Hct are currently stable 12). Hx DVT * Eliquis stopped 10/24/17 given positive bloody stool * Repeat dopplers 08/09/17 are negative for DVT 13). Hx UTI: * Yeast on culture 10/24/17. He is currently on Micofungin 100 mg IV Q24H. He may be colonized with this. * ID Recommended for permcath and sacral debrdiement by ID, has refused 11/02 will to revisit this conversation given elevation in white count. 14). Hx Alzheimer's Dementia * CT head w/o contrast (08/10/17):acute os subacute lacune infarct is not excluded in the left basal ganglia inferiorly with definitive chronic lacune identified in the right basal ganglia superiorly. No acute or subacute lobar brain infarction is appreciable by standard CT criteria. Mild age-related neuro * CT Head w/o contrast (10/14/17): no intracranial mass, hemorrhage, or evidence of acute infarct. 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 Old right external capsule ischemic change. Age related atrophy and chronic microvascular ischemic change * Note: patient does listen to his at bedside, follows simple commands 15). Hx Sacral Ulcer: * General surgery (Dr. Forbes) on board-->help appreciated * Bone Scan performed 09/17/17 to check for Osteomyelitis at the Sacrum: negative for osteomyelitis * Currently on MediHoney daily, family has declined further debridement by surgery. Wound care on board * Recommended for permcath and sacral debrdiement by ID, has refused 11/02, and will have to revisit this conversation given elevation in white count. 16). Hx Right Heal Ulcer * Podiatry (Dr. Lundberg) on board-->help appreciated * Prevalon boots * Improved on exam and area of necrosis/unstageable area is decreased. Santyl and Optifoam daily. Pravolon boots 17). Hx Elevated LFTs * Normalized; patient is on statin and Micafungin 18). Diarrhea: * On Rectal Seal and producing dark brown/black stools that are watery. Stool Studies 10/20/17 are negative * On loperamide PRN 19). Hx Hyponatremia: * Normalized 20). Hx PEG Tube: * Vital 1.5 at 50 ml/hour 21). Hx Hypocalcemia: * Calcitriol 22). Prophylactic Measures: * Vitamin C, Dulcolax PRN, Pepcid, MVI, Zofran PRN, Florastor * Started on dialysis 08/15/17 * s/p Right Chest Permcath 08/22/17--->Recommended by ID to exchange out but has refused. Will need to revisit given elevation in WBC * S/P Tracheostomy 08/22/17 * S/P Peg tube placement 08/25/17 * S/p insertion of right posterior chest tube 08/19-->removed 08/24/17 * Passy Flex Trach placed 09/15/17 * s/p new mid line (left upper extremity) 10/26/17 prior mid line removed and tip sent for culture and was negative. Midline left arm was removed 11/06/17 due to bleeding from site. F/U Venous Duplex of Left Arm 11/08/17 and if negative will have PICC Line Nurse Lopez place new midline on 11/09/17. * (Jovita Serrano): * Patient is now: DNR Disposition: Recommended by ID to get sacral debridement and permacath exchange out. Dr. Lazar spoke with on Tuesday, 11/02 but had refused. 11/08/17: Extensive conversation with today at the time of exam. 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 If debridement did take place then there would be no guarantees that this would improve considering his multiple comorbidities and that this will also likely be extremely painful to patient. Also that if these areas were not debrided, then we ran the risk for sepsis as well osteomyelitis. So unfortunately this placed us between a rock and a hard place concerning this issue. Considering this, I asked her to consider Hospice and explained to her that this would involve discontinuing HD, antibiotics and would involve making him as comfortable as possible. I have reached out to Palliative Care Nurse Domitila and explained to that Nurse Ramesh will speak with her 11/09/17. also asked about the possibility of spinal anesthesia for the debridement and I told her that I would check with the surgery team but also reminded her of the original concerns about patient pain after the procedure and likelihood of lack of improvement considering the multiple comorbidities. Shirt Maker Demetria revealed 11/08/17 that never changed patient insurance [employer] [place] to Medicare as instructed. Therefore placement will have to now occur outside of [facility].
[2017-11-08] MEDS: Multiple Vitamins Tab PEG SCH (09:34)
[2017-11-08] MEDS: Saccharomyces Boulardi 250 mg Cap PO SCH ×2 (09:34→18:46)
[2017-11-08] MEDS: Insulin Detemir 100 units/ml Vial (Levemir) SC SCH ×2 (09:35→22:57)
--- NOTE | 2017-11-08 10:43 | CP.PCM.PN ---
Subjective - Date & Time of Evaluation Date of Evaluation: 11/08/17 Time of Evaluation: 10:41 - Subjective Subjective: seen and examined no events, clinically same lethargic, non verbal. cannot obtain ros tachycardia noted Objective - Vital Signs/Intake and Output Vital Signs (last 24 hours): Temp Pulse Resp BP Pulse Ox 98.3 F 107 H 25 H 139/50 L 98 11/08/17 04:00 11/08/17 08:21 11/08/17 08:21 11/08/17 08:21 11/08/17 08:21 Intake and Output: 11/08/17 11/08/17 06:59 18:59 Intake Total 1090 Output Total 50 Balance 1040 - Medications Medications: Current Medications Ascorbic Acid (Vitamin C 500 Mg Tab) 500 mg PEG DAILY [facility] Last Admin: 11/08/17 09:34 Dose: 500 mg Aspirin (Aspirin Chewable) 81 mg PO DAILY [facility] Last Admin: 11/08/17 09:33 Dose: 81 mg Calcitriol (Rocaltrol) 0.25 mcg PEG DAILY [facility] Last Admin: 11/08/17 09:33 Dose: 0.25 mcg Calcium Acetate (Phoslo) 2,001 mg GT TIDCC [facility] Last Admin: 11/08/17 08:07 Dose: 2,001 mg Epoetin Chencho (Procrit) 10,000 unit IV MWF [facility] Last Admin: 11/07/17 11:28 Dose: 10,000 unit Micafungin Sodium 100 mg/ (Sodium Chloride) 100 mls @ 100 mls/hr IV Q24H [facility] Last Admin: 11/07/17 17:35 Dose: 100 mls/hr Meropenem 500 mg/ Sodium (Chloride) 100 mls @ 50 mls/hr IVPB Q8 [facility] Last Admin: 11/08/17 05:43 Dose: 50 mls/hr Insulin Aspart (Novolog) 0 unit SC Q6 [facility] FERNANDO PRN Reason: Protocol Last Admin: 11/08/17 05:43 Dose: 1 unit Insulin Detemir (Levemir) 35 unit SC Q12 [facility] Last Admin: 11/08/17 09:35 Dose: 35 unit Loperamide HCl (Imodium) 1 mg PO Q4H PRN PRN Reason: Diarrhea Last Admin: 11/04/17 21:10 Dose: 1 mg Metoprolol Tartrate (Lopressor) 12.5 mg PEG BID [facility] Last Admin: 11/08/17 09:33 Dose: 12.5 mg Midodrine (Proamatine) 10 mg PO TID [facility] Last Admin: 11/08/17 09:33 Dose: 10 mg Multivitamins (Hexavitamin) 1 tab PEG DAILY [facility] Last Admin: 11/08/17 09:34 Dose: 1 tab Pantoprazole Sodium (Protonix Inj) 40 mg IVP DAILY [facility] Last Admin: 11/08/17 09:34 Dose: 40 mg Rosuvastatin Calcium (Crestor) 10 mg PO HS [facility] Last Admin: 11/07/17 21:08 Dose: 10 mg Saccharomyces Boulardii (Florastor) 250 mg PO BID [facility] Last Admin: 11/08/17 09:34 Dose: 250 mg Vitamin A (Vitamin A & D Oint Ud Foilpak) 0.5 ea TOP Q1H PRN PRN Reason: Dry skin Last Admin: 11/05/17 13:12 Dose: 0.5 ea - Labs Labs: 11/08/17 06:22 11/08/17 06:22 PT 13.4 SECONDS (9.7-12.2) H 10/14/17 16:30 INR 1.2 10/14/17 16:30 APTT 28 SECONDS (21-34) 10/14/17 16:30 - Constitutional Appears: Non-toxic, Cachectic, Chronically Ill - Head Exam Head Exam: NORMAL INSPECTION - Eye Exam Eye Exam: Normal appearance - ENT Exam ENT Exam: Mucous Membranes Dry - Neck Exam Neck Exam: Normal Inspection (trach-vent) - Respiratory Exam Respiratory Exam: Decreased Breath Sounds, NORMAL BREATHING PATTERN - Cardiovascular Exam Cardiovascular Exam: Tachycardia, REGULAR RHYTHM (rt chest permcath) - GI/Abdominal Exam GI & Abdominal Exam: Distended, Soft, Diminished Bowel Sounds - Extremities Exam Extremities Exam: Normal Capillary Refill, Normal Inspection Assessment and Plan (1) Acute on chronic renal failure Status: Resolved (2) CHF (congestive heart failure) Status: Acute (3) History of DVT (deep vein thrombosis) Status: Acute (4) CAD (coronary artery disease) Status: Chronic (5) CKD (chronic kidney disease) Status: Chronic - Assessment and Plan (Free Text) Assessment: maintain hd mwf antibiotics supportive care poor prognosis
[2017-11-08] MEDS: Micafungin 100 MG in Sodium Chloride 0.9% 100 ML IV SCH (18:47)
--- NOTE | 2017-11-08 23:26 | CP.PCM.PN ---
Subjective - Date & Time of Evaluation Date of Evaluation: 11/05/17 Time of Evaluation: 09:10 - Subjective Subjective: Patient seen and evaluated Not in distress Objective - Vital Signs/Intake and Output Vital Signs (last 24 hours): Temp Pulse Resp BP Pulse Ox 97.9 F 104 H 20 121/62 95 11/08/17 16:00 11/08/17 16:00 11/08/17 16:00 11/08/17 16:00 11/08/17 16:00 Intake and Output: 11/08/17 11/09/17 18:59 06:59 Output Total 500 Balance -500 - Medications Medications: Current Medications Ascorbic Acid (Vitamin C 500 Mg Tab) 500 mg PEG DAILY [facility] Last Admin: 11/08/17 09:34 Dose: 500 mg Aspirin (Aspirin Chewable) 81 mg PO DAILY [facility] Last Admin: 11/08/17 09:33 Dose: 81 mg Calcitriol (Rocaltrol) 0.25 mcg PEG DAILY [facility] Last Admin: 11/08/17 09:33 Dose: 0.25 mcg Calcium Acetate (Phoslo) 2,001 mg GT TIDCC [facility] Last Admin: 11/08/17 18:45 Dose: 2,001 mg Epoetin Chencho (Procrit) 10,000 unit IV MWF [facility] Last Admin: 11/07/17 11:28 Dose: 10,000 unit Micafungin Sodium 100 mg/ (Sodium Chloride) 100 mls @ 100 mls/hr IV Q24H [facility] Last Admin: 11/08/17 18:47 Dose: 100 mls/hr Meropenem 500 mg/ Sodium (Chloride) 100 mls @ 50 mls/hr IVPB Q8 [facility] Last Admin: 11/08/17 22:58 Dose: 50 mls/hr Insulin Aspart (Novolog) 0 unit SC Q6 [facility] FERNANDO PRN Reason: Protocol Last Admin: 11/08/17 19:00 Dose: 1 unit Insulin Detemir (Levemir) 35 unit SC Q12 [facility] Last Admin: 11/08/17 22:57 Dose: 35 unit Loperamide HCl (Imodium) 1 mg PO Q4H PRN PRN Reason: Diarrhea Last Admin: 11/04/17 21:10 Dose: 1 mg Metoprolol Tartrate (Lopressor) 12.5 mg PEG BID [facility] Last Admin: 11/08/17 18:46 Dose: 12.5 mg Midodrine (Proamatine) 10 mg PO TID [facility] Last Admin: 11/08/17 18:47 Dose: 10 mg Multivitamins (Hexavitamin) 1 tab PEG DAILY [facility] Last Admin: 11/08/17 09:34 Dose: 1 tab Pantoprazole Sodium (Protonix Inj) 40 mg IVP DAILY [facility] Last Admin: 11/08/17 09:34 Dose: 40 mg Rosuvastatin Calcium (Crestor) 10 mg PO HS [facility] Last Admin: 11/08/17 22:57 Dose: 10 mg Saccharomyces Boulardii (Florastor) 250 mg PO BID [facility] Last Admin: 11/08/17 18:46 Dose: 250 mg Vitamin A (Vitamin A & D Oint Ud Foilpak) 0.5 ea TOP Q1H PRN PRN Reason: Dry skin Last Admin: 11/05/17 13:12 Dose: 0.5 ea - Labs Labs: 11/08/17 06:22 11/08/17 06:22 PT 13.4 SECONDS (9.7-12.2) H 10/14/17 16:30 INR 1.2 10/14/17 16:30 APTT 28 SECONDS (21-34) 10/14/17 16:30
--- NOTE | 2017-11-08 23:29 | CP.PCM.PN ---
Subjective - Date & Time of Evaluation Date of Evaluation: 11/08/17 Time of Evaluation: 10:00 - Subjective Subjective: Patient seen and evaluated Clinical condition remains same Responds to oral commands D/W at bedside Objective - Vital Signs/Intake and Output Vital Signs (last 24 hours): Temp Pulse Resp BP Pulse Ox 97.9 F 104 H 20 121/62 95 11/08/17 16:00 11/08/17 16:00 11/08/17 16:00 11/08/17 16:00 11/08/17 16:00 Intake and Output: 11/08/17 11/09/17 18:59 06:59 Output Total 500 Balance -500 - Medications Medications: Current Medications Ascorbic Acid (Vitamin C 500 Mg Tab) 500 mg PEG DAILY [facility] Last Admin: 11/08/17 09:34 Dose: 500 mg Aspirin (Aspirin Chewable) 81 mg PO DAILY [facility] Last Admin: 11/08/17 09:33 Dose: 81 mg Calcitriol (Rocaltrol) 0.25 mcg PEG DAILY [facility] Last Admin: 11/08/17 09:33 Dose: 0.25 mcg Calcium Acetate (Phoslo) 2,001 mg GT TIDCC [facility] Last Admin: 11/08/17 18:45 Dose: 2,001 mg Epoetin Chencho (Procrit) 10,000 unit IV MWF [facility] Last Admin: 11/07/17 11:28 Dose: 10,000 unit Micafungin Sodium 100 mg/ (Sodium Chloride) 100 mls @ 100 mls/hr IV Q24H [facility] Last Admin: 11/08/17 18:47 Dose: 100 mls/hr Meropenem 500 mg/ Sodium (Chloride) 100 mls @ 50 mls/hr IVPB Q8 [facility] Last Admin: 11/08/17 22:58 Dose: 50 mls/hr Insulin Aspart (Novolog) 0 unit SC Q6 [facility] PRN Reason: Protocol Last Admin: 11/08/17 19:00 Dose: 1 unit Insulin Detemir (Levemir) 35 unit SC Q12 [facility] Last Admin: 11/08/17 22:57 Dose: 35 unit Loperamide HCl (Imodium) 1 mg PO Q4H PRN PRN Reason: Diarrhea Last Admin: 11/04/17 21:10 Dose: 1 mg Metoprolol Tartrate (Lopressor) 12.5 mg PEG BID [facility] Last Admin: 11/08/17 18:46 Dose: 12.5 mg Midodrine (Proamatine) 10 mg PO TID [facility] Last Admin: 11/08/17 18:47 Dose: 10 mg Multivitamins (Hexavitamin) 1 tab PEG DAILY [facility] Last Admin: 11/08/17 09:34 Dose: 1 tab Pantoprazole Sodium (Protonix Inj) 40 mg IVP DAILY [facility] Last Admin: 11/08/17 09:34 Dose: 40 mg Rosuvastatin Calcium (Crestor) 10 mg PO HS [facility] Last Admin: 11/08/17 22:57 Dose: 10 mg Saccharomyces Boulardii (Florastor) 250 mg PO BID [facility] Last Admin: 11/08/17 18:46 Dose: 250 mg Vitamin A (Vitamin A & D Oint Ud Foilpak) 0.5 ea TOP Q1H PRN PRN Reason: Dry skin Last Admin: 11/05/17 13:12 Dose: 0.5 ea - Labs Labs: 11/08/17 06:22 11/08/17 06:22 PT 13.4 SECONDS (9.7-12.2) H 10/14/17 16:30 INR 1.2 10/14/17 16:30 APTT 28 SECONDS (21-34) 10/14/17 16:30
[2017-11-09] MEDS: (Novolog) Insulin Aspart, Recombinant 100 u/ml 10 ml vial SC SCH ×4 (00:30→18:23)
[2017-11-09] MEDS: Meropenem 500 MG in Sodium Chloride 0.9% 100 ML IVPB SCH ×3 (05:41→22:45)
[2017-11-09 08:48] LABS: MAGNESIUM 2.2 mg/dL (1.6-2.3); PHOSPHOROUS 5.5 mg/dL (2.5-4.5)
--- NOTE | 2017-11-09 09:12 | CP.PCM.PN ---
Subjective - Date & Time of Evaluation Date of Evaluation: 11/09/17 Time of Evaluation: 09:09 - Subjective Subjective: PGY-[address] Barth No acute events noted overnight. Patient was seen and examined in bed, awake, responsive by nodding head. Breathing regular. With oxygen @ 40% via trache collar. ROS unobtainable as patient is on trach collar. Objective - Vital Signs/Intake and Output Vital Signs (last 24 hours): Temp Pulse Resp BP Pulse Ox 99.4 F 126 H 20 153/74 H 95 11/09/17 07:00 11/09/17 07:00 11/09/17 07:00 11/09/17 07:00 11/09/17 07:00 Intake and Output: 11/09/17 11/09/17 06:59 18:59 Intake Total 1510 Output Total 400 Balance 1110 - Medications Medications: Current Medications Ascorbic Acid (Vitamin C 500 Mg Tab) 500 mg PEG DAILY [facility] Last Admin: 11/08/17 09:34 Dose: 500 mg Aspirin (Aspirin Chewable) 81 mg PO DAILY [facility] Last Admin: 11/08/17 09:33 Dose: 81 mg Calcitriol (Rocaltrol) 0.25 mcg PEG DAILY [facility] Last Admin: 11/08/17 09:33 Dose: 0.25 mcg Calcium Acetate (Phoslo) 2,001 mg GT TIDCC [facility] Last Admin: 11/09/17 08:13 Dose: 2,001 mg Epoetin Asim (Procrit) 10,000 unit IV MWF [facility] Last Admin: 11/07/17 11:28 Dose: 10,000 unit Micafungin Sodium 100 mg/ (Sodium Chloride) 100 mls @ 100 mls/hr IV Q24H [facility] Last Admin: 11/08/17 18:47 Dose: 100 mls/hr Meropenem 500 mg/ Sodium (Chloride) 100 mls @ 50 mls/hr IVPB Q8 [facility] Last Admin: 11/09/17 05:41 Dose: 50 mls/hr Insulin Aspart (Novolog) 0 unit SC Q6 [facility] PRN Reason: Protocol Last Admin: 11/09/17 06:24 Dose: 1 unit Insulin Detemir (Levemir) 35 unit SC Q12 [facility] Last Admin: 11/08/17 22:57 Dose: 35 unit Loperamide HCl (Imodium) 1 mg PO Q4H PRN PRN Reason: Diarrhea Last Admin: 11/04/17 21:10 Dose: 1 mg Metoprolol Tartrate (Lopressor) 12.5 mg PEG BID [facility] Last Admin: 11/08/17 18:46 Dose: 12.5 mg Midodrine (Proamatine) 10 mg PO TID [facility] Last Admin: 11/08/17 18:47 Dose: 10 mg Multivitamins (Hexavitamin) 1 tab PEG DAILY [facility] Last Admin: 11/08/17 09:34 Dose: 1 tab Pantoprazole Sodium (Protonix Inj) 40 mg IVP DAILY [facility] Last Admin: 11/08/17 09:34 Dose: 40 mg Rosuvastatin Calcium (Crestor) 10 mg PO HS [facility] Last Admin: 11/08/17 22:57 Dose: 10 mg Saccharomyces Boulardii (Florastor) 250 mg PO BID [facility] Last Admin: 11/08/17 18:46 Dose: 250 mg Vitamin A (Vitamin A & D Oint Ud Foilpak) 0.5 ea TOP Q1H PRN PRN Reason: Dry skin Last Admin: 11/05/17 13:12 Dose: 0.5 ea - Labs Labs: 11/08/17 06:22 11/08/17 06:22 PT 13.4 SECONDS (9.7-12.2) H 10/14/17 16:30 INR 1.2 10/14/17 16:30 APTT 28 SECONDS (21-34) 10/14/17 16:30 - Additional Findings Additional findings: - Constitutional Appears: Non-toxic, No Acute Distress - Head Exam Head Exam: ATRAUMATIC, NORMAL INSPECTION, NORMOCEPHALIC - Eye Exam Eye Exam: EOMI, Normal appearance - ENT Exam ENT Exam: Mucous Membranes Moist - Neck Exam Neck Exam: Full ROM, Normal Inspection Additional comments: no tracheal deviation - Respiratory Exam Respiratory Exam: NORMAL BREATHING PATTERN Additional comments: no accessory use - Cardiovascular Exam Cardiovascular Exam: REGULAR RHYTHM, +S1, +S2 - GI/Abdominal Exam GI & Abdominal Exam: Distended, Soft Additional comments: peg tube in place - Extremities Exam Extremities Exam: Normal Inspection Additional comments: no pedal edema - Neurological Exam Neurological Exam: Awake - Psychiatric Exam Psychiatric exam: Normal Affect, Normal Mood - Skin Skin Exam: Dry, Normal Color Additional comments: unstageable sacral ulcer stage 2 right ischial ulcer Assessment and Plan - Assessment and Plan (Free Text) Assessment: 77M with ARDS s/p cardiac arrest, with pulmonary edema and NSTEMI * Ipratropium 0.02% (atrovent) 0.5mg IH RQ6H * 10/24 CXR: questionable interval atelectasis or infiltrate in medial right base * 10/23 mid bibasilar atelectasis. questionable small left-sided effusion * CXR left lobe atelectasis v pna * 10/26 right midline removed, tip of midline sent for culture 10/26, new midline placed on left arm 10/26 * 10/[address] Lawrence: fungal infection in blood, lines should be changed. * 10/[address] Lawrence: fungal infection in blood, lines should be changed. * reach out to Mrs. Wolf, if family does want patient on dialysis: dialysis needs to be changed * f/u echo to rule out vegetations * 10/28: Family wants patient to receive dialysis; consulted surgery for permacath replacement. * Surgery consulted, Dr. Forbes * Patient received dialysis today; developed sinus tachycardia during; continue to monitor on telemetry. * 10/29 Digoxin 0.25 mg IV was given to patient for the sinus tachycardia. * ECHO: LV function markedly reduced, diffuse hypokinesis; septum is akinetic; LV EF 20%; Trace AR. * Continue mycamine 100mg POQD, merrem 500 POQD, flagy 500mg GT Q8 (discontinued ) DVT Left Axillary and Left Brachial Veins * Duplex scan LUE 11/09: acute thrombosis of left axillary and brachial veins with severe reduction of venous return * Anticoagulation contraindicated as patient had a recent bleed with a drop in Hgb due to new eliquis use * PICC access in left arm not possible due to LUE DVT and right arm with permacath thus no midline can be placed on either upper extremities Constipation, resolved * Dulcolax 10mg TX Once PRN 10/21, patient had a dark brown BM yesterday, none today per nursing staff * Patient is having diarrhea in the Flexseal. Cultures were taken, currently negative * GI Dr. Wills consulted: does not feel that it would be in the best interest of the patient at this time to do any invasive procedure or examination. Diarrhea * One dose of immodium given overnight Hypotensive, resolved * Metoprolol on hold (restarted) HTN * 10/31 Lopressor 5mg once was given today for high blood pressure Leukocytosis * current cultures negative (blood, stool and wound) * 10/14 urine culture: yeast * 10/14 blood culture is positive for yeast * 10/26 WBC 25.5 * 10/27 WBC 17 * Saccharomyces boulardi (florastor) 250mg PO BID * Blood cx x1 from 10/24: positive for Reny Glabrata * Second blood cx showed no growth * As per ID, suggested replacing dialysis lines due to fungal infection * 10/26: catheter tip cx: no growth * Continue mycamine 100mg PO QD, Flagyl 500mg GT Q8m (discontinued), Merem 500mg IV Q8 Abnormal Stress test, history of AICD, hx CAD * ASA 81mg POQD * Rosuvastatin calcium 10mg PO QHS Atrial Flutter, resolved * Cardiology Consult (Dr. Cortés) * Aspirin 81mg PO daily * c/w Eliquis 2.5mg PO bid * Eliquis held d/t Hgb 6.6 10/24 Low hemoglobin * Epoeitin asim 14032 u IV M, W, F * 10/24: Eliquis held d/t Hgb 6.6; 2uPRBC administered after dialysis * Hgb 11.2 after 2uPRBC * 11/04 1 uPRBC Hypocalcemia * Calcitriol 0.25 mcg PEG daily UTI, yeast positive * 10/14 urine positive for yeast * Discontinued Diflucan 100mg/50cc NS @ 55cc/hr QD Unstageable Sacral Ulcer, Left Ear Auriclular ulcer, Right Heal Ulcer * Continue to monitor HTN, medications held until blood pressure is higher * Midodrine (proamatine) * Metoprolol 25mg PEG BID BS DM * Levemir 25 units SC Q12 * ISS * Glucose accuchecks CKD with Dialysis * Dialysis MWF via permacath * Patient received dialysis today, 10/28. * During dialysis, patient developed sinus tachycardia. continue to monitor on telemetry Hyperphosphatemia patient is on Phoslo [address] Miranda Prophylaxis * Pepcid 20mg POQD * Zofran 4mg IVP Q8H PRN Diet: tube feeds: Vital 1.2 initial rate 20cc/hr with goal rate 70cc/hr Patient is at goal rate Social Work Patient's new insurance does not accept LTAC. 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 Comfort measures in place. POLST in chart, signed DNR as of 1899 on 10/25/1710/25 Patient was made DNR by of Patient Disposition: Maryann, palliative care nurse spoke to 11/09 about hospice; not amenable to hospice for patient at this time. discussed with Dr. Cullen Barth
[2017-11-09] MEDS: Saccharomyces Boulardi 250 mg Cap PO SCH ×2 (09:42→18:17)
[2017-11-09] MEDS: Insulin Detemir 100 units/ml Vial (Levemir) SC SCH ×2 (09:43→22:47)
[2017-11-09] MEDS: Multiple Vitamins Tab PEG SCH (09:43)
--- NOTE | 2017-11-09 10:53 | VASCLAB ---
PROCEDURE: Left Upper Extremity Venous Duplex Exam HISTORY: Arm swelling r/o dvt PRIORS: None. TECHNIQUE: Left upper extremity, internal jugular, subclavian, axillary, brachial, ulnar, radial, basilic and upper cephalic veins were evaluated. Flow was assessed with color Doppler, compressibility, assessment of phasic flow and augmentation response. Report prepared by NADJA Spence, RVT FINDINGS: LEFT: 1. Internal Jugular: 1.1. Compressibility - Fully compressible: Thrombus - None : Flow - Phasic: Augmentation -Normal: Reflux - None. 2. Subclavian: 2.1. Compressibility - None: Thrombus - None : Flow - Phasic: Augmentation -Normal: Reflux - None. 3. Axillary: 3.1. Compressibility - Partial: Thrombus - Acute : Flow - Absent : Augmentation -None: Reflux - None. 4. Brachial: 4.1. Compressibility - Partial: Thrombus - Acute: Flow - Absent : Augmentation -None: Reflux - None. 5. Ulnar: 5.1. Compressibility - Fully compressible: Thrombus - None: Flow - Phasic: Augmentation -Normal: Reflux - None. 6. Radial: 6.1. Compressibility - Fully compressible: Thrombus - None: Flow - Phasic: Augmentation - Normal: Reflux - None. 7. Cephalic: 7.1. Compressibility - Fully compressible: Thrombus - None: Flow - Phasic: Augmentation -Normal: Reflux - None. 8. Basilic: 8.1. Compressibility - Fully compressible: Thrombus - None: Flow - Phasic: Augmentation -Normal: Reflux - None. OTHER FINDINGS: Unable to compress both subclavian veins due to pacemaker and line in the chest. RN Alanis notified about the findings. IMPRESSION: Left: Acute thrombosis of the left axillary and brachial veins with severe reduction of the venous return. Normal venous flow noted in the right internal jugular and right subclavian veins.
[2017-11-09] MEDS: Epoetin Alfa 10,000 unit/ml Dialysis IV SCH (11:53)
--- NOTE | 2017-11-09 13:39 | CP.PCM.PN ---
Subjective - Date & Time of Evaluation Date of Evaluation: 11/09/17 Time of Evaluation: 13:37 - Subjective Subjective: Stable dialysis now- UF 1000ml Same lethargic state No new events Remains on IV antimicrobials Labs acceptable Objective - Vital Signs/Intake and Output Vital Signs (last 24 hours): Temp Pulse Resp BP Pulse Ox 98.2 F 123 H 22 127/42 L 99 11/09/17 12:30 11/09/17 12:30 11/09/17 12:30 11/09/17 12:30 11/09/17 12:30 Intake and Output: 11/09/17 11/09/17 06:59 18:59 Intake Total 1510 Output Total 400 Balance 1110 - Medications Medications: Current Medications Ascorbic Acid (Vitamin C 500 Mg Tab) 500 mg PEG DAILY [facility] Last Admin: 11/09/17 09:44 Dose: Not Given Aspirin (Aspirin Chewable) 81 mg PO DAILY [facility] Last Admin: 11/09/17 09:42 Dose: Not Given Calcitriol (Rocaltrol) 0.25 mcg PEG DAILY [facility] Last Admin: 11/09/17 09:44 Dose: Not Given Calcium Acetate (Phoslo) 2,001 mg GT TIDCC [facility] Last Admin: 11/09/17 11:41 Dose: Not Given Epoetin Chencho (Procrit) 10,000 unit IV MWF [facility] Last Admin: 11/09/17 11:53 Dose: 10,000 unit Micafungin Sodium 100 mg/ (Sodium Chloride) 100 mls @ 100 mls/hr IV Q24H [facility] Last Admin: 11/08/17 18:47 Dose: 100 mls/hr Meropenem 500 mg/ Sodium (Chloride) 100 mls @ 50 mls/hr IVPB Q8 [facility] Last Admin: 11/09/17 05:41 Dose: 50 mls/hr Insulin Aspart (Novolog) 0 unit SC Q6 [facility] PRN Reason: Protocol Last Admin: 11/09/17 11:41 Dose: Not Given Insulin Detemir (Levemir) 35 unit SC Q12 [facility] Last Admin: 11/09/17 09:43 Dose: Not Given Loperamide HCl (Imodium) 1 mg PO Q4H PRN PRN Reason: Diarrhea Last Admin: 11/04/17 21:10 Dose: 1 mg Metoprolol Tartrate (Lopressor) 12.5 mg PEG BID [facility] Last Admin: 11/09/17 09:43 Dose: Not Given Multivitamins (Hexavitamin) 1 tab PEG DAILY [facility] Last Admin: 11/09/17 09:43 Dose: Not Given Pantoprazole Sodium (Protonix Inj) 40 mg IVP DAILY [facility] Last Admin: 11/09/17 09:43 Dose: Not Given Rosuvastatin Calcium (Crestor) 10 mg PO HS [facility] Last Admin: 11/08/17 22:57 Dose: 10 mg Saccharomyces Boulardii (Florastor) 250 mg PO BID [facility] Last Admin: 11/09/17 09:42 Dose: Not Given Vitamin A (Vitamin A & D Oint Ud Foilpak) 0.5 ea TOP Q1H PRN PRN Reason: Dry skin Last Admin: 11/05/17 13:12 Dose: 0.5 ea - Labs Labs: 11/08/17 06:22 11/08/17 06:22 PT 13.4 SECONDS (9.7-12.2) H 10/14/17 16:30 INR 1.2 10/14/17 16:30 APTT 28 SECONDS (21-34) 10/14/17 16:30 - Constitutional Appears: Confused, Chronically Ill - Head Exam Head Exam: ATRAUMATIC, NORMAL INSPECTION - Eye Exam Eye Exam: EOMI - Neck Exam Neck Exam: Normal Inspection. absent: Tenderness - Respiratory Exam Respiratory Exam: Clear to Ausculation Bilateral, NORMAL BREATHING PATTERN - Cardiovascular Exam Cardiovascular Exam: REGULAR RHYTHM, +S1 - GI/Abdominal Exam GI & Abdominal Exam: Soft. absent: Tenderness - Extremities Exam Extremities Exam: Normal Inspection. absent: Tenderness - Neurological Exam Neurological Exam: Awake, CN II-XII Intact - Skin Skin Exam: Dry, Warm Assessment and Plan (1) Acute on chronic renal failure Status: Resolved (2) CAD (coronary artery disease) Status: Chronic (3) CHF exacerbation Status: Chronic (4) Type 2 diabetes mellitus with diabetic nephropathy Status: Acute (5) Cardiorenal disease Status: Acute (6) ESRD (end stage renal disease) Status: Acute (7) Sacral decubitus ulcer Status: Acute - Assessment and Plan (Free Text) Plan: Dialysis MWF Adequate UF anti microbials supportive care
[2017-11-09 17:55] LABS: ALB/GLOB RATIO 0.8 (1.0-2.1); BILIRUBIN,TOTAL 0.4 mg/dL (0.2-1.3); CALCIUM 7.4 mg/dl (8.6-10.4); POTASSIUM 4.1 mmol/L (3.6-5.2); TOTAL PROTEIN 5.3 g/dL (6.3-8.3)
[2017-11-09] MEDS: Micafungin 100 MG in Sodium Chloride 0.9% 100 ML IV SCH (18:21)
[2017-11-09 19:33] LABS: BASO # 0.1 K/uL (0.0-0.2); BASO % 0.8 % (0.0-2.0); EOS # 0.1 K/uL (0.0-0.7); EOS % 0.6 % (0.0-4.0); HEMATOCRIT 30.3 % (35.0-51.0); LYMPH # 1.5 K/uL (1.0-4.3); MEAN CELL VOLUME 91.9 fL (80.0-94.0); MEAN CORPUSCULAR HEMOGLOBIN 28.4 pg (27.0-31.0); MEAN CORPUSCULAR HGB CONC 30.9 g/dL (33.0-37.0); MEAN PLATELET VOLUME 6.9 fL (7.2-11.7); MONO # 0.9 K/uL (0.0-0.8); MONO % 5.9 % (0.0-10.0); RED CELL DISTRIBUTION WIDTH 23.4 % (11.5-14.5); WHITE BLOOD COUNT 15.3 K/uL (4.8-10.8)
[2017-11-10] MEDS: (Novolog) Insulin Aspart, Recombinant 100 u/ml 10 ml vial SC SCH ×4 (00:51→17:34)
[2017-11-10] MEDS: Meropenem 500 MG in Sodium Chloride 0.9% 100 ML IVPB SCH ×3 (05:24→21:54)
--- NOTE | 2017-11-10 07:32 | CP.PCM.PN ---
<Anton Moore - Last Filed: 11/10/17 15:49> Subjective - Date & Time of Evaluation Date of Evaluation: 11/10/17 Time of Evaluation: 07:22 - Subjective Subjective: PGY-[address] Deepthi Barth. No acute events overnight noted. Patient was seen and examined in bed, awake, responsive by nodding head but remains lethargic. Breathing regular. With oxygen @ 40% via trache collar. ROS unobtainable as patient is on trach collar. Objective - Vital Signs/Intake and Output Vital Signs (last 24 hours): Temp Pulse Resp BP Pulse Ox 99.1 F 110 H 20 127/57 L 96 11/10/17 00:00 11/10/17 00:00 11/10/17 00:00 11/10/17 00:00 11/10/17 00:00 Intake and Output: 11/10/17 11/10/17 06:59 18:59 Intake Total 1460 Output Total 100 Balance 1360 - Medications Medications: Current Medications Ascorbic Acid (Vitamin C 500 Mg Tab) 500 mg PEG DAILY [facility] Last Admin: 11/09/17 09:44 Dose: Not Given Aspirin (Aspirin Chewable) 81 mg PO DAILY [facility] Last Admin: 11/09/17 09:42 Dose: Not Given Calcitriol (Rocaltrol) 0.25 mcg PEG DAILY [facility] Last Admin: 11/09/17 09:44 Dose: Not Given Calcium Acetate (Phoslo) 2,001 mg GT TIDCC [facility] Last Admin: 11/09/17 18:19 Dose: 2,001 mg Epoetin Asim (Procrit) 10,000 unit IV MWF [facility] Last Admin: 11/09/17 11:53 Dose: 10,000 unit Micafungin Sodium 100 mg/ (Sodium Chloride) 100 mls @ 100 mls/hr IV Q24H [facility] Last Admin: 11/09/17 18:21 Dose: 100 mls/hr Meropenem 500 mg/ Sodium (Chloride) 100 mls @ 50 mls/hr IVPB Q8 [facility] Last Admin: 11/10/17 05:24 Dose: 50 mls/hr Insulin Aspart (Novolog) 0 unit SC Q6 [facility] PRN Reason: Protocol Last Admin: 11/10/17 06:41 Dose: 3 unit Insulin Detemir (Levemir) 35 unit SC Q12 [facility] Last Admin: 11/09/17 22:47 Dose: 35 unit Loperamide HCl (Imodium) 1 mg PO Q4H PRN PRN Reason: Diarrhea Last Admin: 11/04/17 21:10 Dose: 1 mg Metoprolol Tartrate (Lopressor) 12.5 mg PEG BID [facility] Last Admin: 11/09/17 18:18 Dose: 12.5 mg Multivitamins (Hexavitamin) 1 tab PEG DAILY [facility] Last Admin: 11/09/17 09:43 Dose: Not Given Pantoprazole Sodium (Protonix Inj) 40 mg IVP DAILY [facility] Last Admin: 11/09/17 09:43 Dose: Not Given Rosuvastatin Calcium (Crestor) 10 mg PO HS [facility] Last Admin: 11/09/17 22:47 Dose: 10 mg Saccharomyces Boulardii (Florastor) 250 mg PO BID [facility] Last Admin: 11/09/17 18:17 Dose: 250 mg Vitamin A (Vitamin A & D Oint Ud Foilpak) 0.5 ea TOP Q1H PRN PRN Reason: Dry skin Last Admin: 11/05/17 13:12 Dose: 0.5 ea - Labs Labs: 11/09/17 19:28 11/09/17 17:26 PT 13.4 SECONDS (9.7-12.2) H 10/14/17 16:30 INR 1.2 10/14/17 16:30 APTT 28 SECONDS (21-34) 10/14/17 16:30 - Additional Findings Additional findings: - Constitutional Appears: Non-toxic, No Acute Distress - Head Exam Head Exam: ATRAUMATIC, NORMAL INSPECTION, NORMOCEPHALIC - Eye Exam Eye Exam: EOMI, Normal appearance - ENT Exam ENT Exam: Mucous Membranes Moist - Neck Exam Neck Exam: Full ROM, Normal Inspection Additional comments: no tracheal deviation - Respiratory Exam Respiratory Exam: NORMAL BREATHING PATTERN Additional comments: no accessory use - Cardiovascular Exam Cardiovascular Exam: REGULAR RHYTHM, +S1, +S2 - GI/Abdominal Exam GI & Abdominal Exam: Distended, Soft Additional comments: peg tube in place - Extremities Exam Extremities Exam: Normal Inspection Additional comments: no pedal edema - Neurological Exam Neurological Exam: Awake - Psychiatric Exam Psychiatric exam: Normal Affect, Normal Mood - Skin Skin Exam: Dry, Normal Color Additional comments: unstageable sacral ulcer stage 2 right ischial ulcer Assessment and Plan - Assessment and Plan (Free Text) Assessment: 77M with ARDS s/p cardiac arrest, with pulmonary edema and NSTEMI * Ipratropium 0.02% (atrovent) 0.5mg IH RQ6H * 10/24 CXR: questionable interval atelectasis or infiltrate in medial right base * 10/23 mid bibasilar atelectasis. questionable small left-sided effusion * CXR left lobe atelectasis v pna * 10/26 right midline removed, tip of midline sent for culture 10/26, new midline placed on left arm 10/26 * 10/[address] Lawrence: fungal infection in blood, lines should be changed. * 10/[address] Lawrence: fungal infection in blood, lines should be changed. * reach out to Mrs. Wolf, if family does want patient on dialysis: dialysis needs to be changed * ECHO 10/27 showed no vegetations * 10/28: Family wants patient to receive dialysis; consulted surgery for permacath replacement. * Surgery consulted, Dr. Forbes * Patient received dialysis today; developed sinus tachycardia during; continue to monitor on telemetry. * 10/29 Digoxin 0.25 mg IV was given to patient for the sinus tachycardia. * ECHO: LV function markedly reduced, diffuse hypokinesis; septum is akinetic; LV EF 20%; Trace AR. * Continue mycamine 100mg POQD, merrem 500 POQD, flagy 500mg GT Q8 (discontinued ) DVT Left Axillary and Left Brachial Veins * Duplex scan LUE 11/09: acute thrombosis of left axillary and brachial veins with severe reduction of venous return * Anticoagulation contraindicated as patient had a recent bleed with a drop in Hgb due to new eliquis use * PICC access in left arm not possible due to LUE DVT and right arm with permacath thus no midline can be placed on either upper extremities Constipation, resolved * Dulcolax 10mg MD Once PRN 10/21, patient had a dark brown BM yesterday, none today per nursing staff * Patient is having diarrhea in the Flexseal. Cultures were taken, currently negative * GI Dr. Wills consulted: does not feel that it would be in the best interest of the patient at this time to do any invasive procedure or examination. Diarrhea * One dose of immodium given overnight Hypotensive, resolved * Metoprolol on hold (restarted) HTN * 10/31 Lopressor 5mg once was given today for high blood pressure Leukocytosis * Blood Cx 10/28 negative * Catheter tip Cx 10/26: no growth * Urine culture 10/14: yeast * Blood culture 10/14 is positive for yeast * Blood cx x1 from 10/24: positive for Reny Glabrata * Second blood cx showed no growth * As per ID, suggested replacing dialysis lines due to fungal infection Meds: * Continue mycamine 100mg PO QD, Flagyl 500mg GT Q8m (discontinued), Merem 500mg IV Q8 * Saccharomyces boulardi (florastor) 250mg PO BID Abnormal Stress test, history of AICD, hx CAD * ASA 81mg PO QD * Rosuvastatin calcium 10mg PO QHS Atrial Flutter, resolved * Cardiology Consult (Dr. Cortés) * Aspirin 81mg PO daily * c/w Eliquis 2.5mg PO bid * Eliquis held d/t Hgb 6.6 10/24 Low hemoglobin * Epoeitin asim 84541 u IV M, W, F * 10/24: Eliquis held d/t Hgb 6.6; 2uPRBC administered after dialysis * Hgb 11.2 after 2uPRBC * 11/04 1 uPRBC Hypocalcemia * Calcitriol 0.25 mcg PEG daily UTI, yeast positive * 10/14 urine positive for yeast * Discontinued Diflucan 100mg/50cc NS @ 55cc/hr QD Unstageable Sacral Ulcer, Left Ear Auriclular ulcer, Right Heal Ulcer * Wound care daily * Turn reposition Q2H HTN, medications held until blood pressure is higher * Midodrine (proamatine) * Metoprolol 25mg PEG BID BS DM * Levemir 25 units SC Q12 * ISS * Glucose accuchecks CKD with Dialysis * Dialysis MWF via permacath * Patient received dialysis today, 10/28. * During dialysis, patient developed sinus tachycardia. continue to monitor on telemetry Hyperphosphatemia patient is on Phoslo [address] Miranda Prophylaxis * Pepcid 20mg POQD * Zofran 4mg IVP Q8H PRN Diet: tube feeds: Vital 1.2 initial rate 20cc/hr with goal rate 70cc/hr Patient is at goal rate Social Work Patient's new insurance does not accept LTAC. New insurance starts October [address] [facility] to accept the patient when new insurance starts 10/28/17 caisson worker to provide letter to have daughter in [place] get a visa to come to the [place] to see her father. Comfort measures in place. POLST in chart, signed DNR as of 1899 on 10/25/17 Disposition: Maryann palliative care nurse spoke to 11/09 about hospice; not amenable to hospice for patient at this time. Discussed with Dr. Cullen Barth <Cullen Barth - Last Filed: 11/10/17 18:27> Objective - Vital Signs/Intake and Output Vital Signs (last 24 hours): Temp Pulse Resp BP Pulse Ox 97.3 F L 101 H 22 120/66 98 11/10/17 15:25 11/10/17 16:04 11/10/17 15:25 11/10/17 16:04 11/10/17 16:04 Intake and Output: 11/10/17 11/10/17 06:59 18:59 Intake Total 1460 580 Output Total 100 0 Balance 1360 580 - Medications Medications: Current Medications Ascorbic Acid (Vitamin C 500 Mg Tab) 500 mg PEG DAILY [facility] Last Admin: 11/10/17 11:29 Dose: 500 mg Aspirin (Aspirin Chewable) 81 mg PO DAILY [facility] Last Admin: 11/10/17 11:26 Dose: 81 mg Calcitriol (Rocaltrol) 0.25 mcg PEG DAILY [facility] Last Admin: 11/10/17 11:36 Dose: Not Given Calcium Acetate (Phoslo) 2,001 mg GT TIDCC [facility] Last Admin: 11/10/17 17:34 Dose: 2,001 mg Epoetin Asim (Procrit) 10,000 unit IV MWF [facility] Last Admin: 11/09/17 11:53 Dose: 10,000 unit Micafungin Sodium 100 mg/ (Sodium Chloride) 100 mls @ 100 mls/hr IV Q24H [facility] Last Admin: 11/10/17 17:40 Dose: 100 mls/hr Meropenem 500 mg/ Sodium (Chloride) 100 mls @ 50 mls/hr IVPB Q8 [facility] Last Admin: 11/10/17 14:15 Dose: 50 mls/hr Insulin Aspart (Novolog) 0 unit SC Q6 [facility] PRN Reason: Protocol Last Admin: 11/10/17 17:34 Dose: 4 unit Insulin Detemir (Levemir) 35 unit SC Q12 [facility] Last Admin: 11/10/17 14:13 Dose: 35 unit Loperamide HCl (Imodium) 1 mg PO Q4H PRN PRN Reason: Diarrhea Last Admin: 11/04/17 21:10 Dose: 1 mg Metoprolol Tartrate (Lopressor) 12.5 mg PEG BID [facility] Last Admin: 11/10/17 17:36 Dose: 12.5 mg Multivitamins (Hexavitamin) 1 tab PEG DAILY [facility] Last Admin: 11/10/17 11:26 Dose: 1 tab Pantoprazole Sodium (Protonix Inj) 40 mg IVP DAILY [facility] Last Admin: 11/10/17 11:26 Dose: 40 mg Rosuvastatin Calcium (Crestor) 10 mg PO HS [facility] Last Admin: 11/09/17 22:47 Dose: 10 mg Saccharomyces Boulardii (Florastor) 250 mg PO BID [facility] Last Admin: 11/10/17 18:05 Dose: 250 mg Vitamin A (Vitamin A & D Oint Ud Foilpak) 0.5 ea TOP Q1H PRN PRN Reason: Dry skin Last Admin: 11/05/17 13:12 Dose: 0.5 ea - Labs Labs: 11/10/17 08:04 11/10/17 08:04 PT 13.4 SECONDS (9.7-12.2) H 10/14/17 16:30 INR 1.2 10/14/17 16:30 APTT 28 SECONDS (21-34) 10/14/17 16:30 Attending/Attestation - Attestation I have personally seen and examined this patient.: Yes I have fully participated in the care of the patient.: Yes I have reviewed all pertinent clinical information, including history, physical exam and plan: Yes Notes (Text): 11/10/17 18:19 Patient was seen and examined at 11:45 AM 11/10/17 355 A Exam, assessment and plan were thoroughly gone over with the resident Also on exam: Sacral ulcer extending to involve the bilateral ischial tuberosities: unstageable Right Heal ulcer: unstageable Assessment/Plans 1). Hx Acute Respiratory Failure/ARDS/Cadiac Arrest/NSTEMI * Dr Cortés (cardiology) on the case-->help appreciated * Dr. Mena (pulmonary) on the case-->help appreciated * Code Blue on 08/10: asystole, cardiopulmonary resuscitative measures initiated , requiring 3 epis, bicarbonate, ROSC achieved and intubated and brought to the ICU. Patient has had multiple for hypotension. Latest DRAIN LAYER was on 10/14; stable awaiting for tele bed when available. * Atrovent 0.5mg Inhaled RQ6H * Aspirin 81mg PO daily * Lopressor 12.5mg PO BID with holding parameters * Midodrine 10mg PO TID * Crestor 10mg PO qHS 2). Hx Abnormal Stress Test/AICD/CAD * Dr Cortés (cardiology) on the case-->help appreciated * Dr. Mena (pulmonary) on the case-->help appreciated * Code Blue on 08/10: asystole, cardiopulmonary resuscitative measures initiated , requiring 3 epis, bicarbonate, ROSC achieved and intubated and brought to the ICU. Patient has had multiple for hypotension. Latest DRAIN LAYER was on 10/14; stable awaiting for tele bed when available. * Aspirin 81mg PO daily * Lopressor 12.5mg PO BID with holding parameters * Midodrine 10mg PO TID * Crestor 10mg PO qHS 3). Hx Atrial Flutter: * stopped Eliquis 10/24/17 secondary significant drop in HgB. Heart Rate is elevated. Ordered for Lopressor 5mg iVX1 on 10/31 * Lopressor 12.5mg PO BID with holding parameters 4). 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 Leukocytosis * Infectious Disease (Dr. Lawrence) on the case-->help appreciated * Blood Culture 10/22/17 is finalized as negative. * Sputum culture 10/14/17 is negative. * Stool cultures 10/20/17 are negative. 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 * Right Arm Midline Tip 10/06/17 culture is negative and removed. Midline Tip Culture 10/26/17 is negative. * Blood Cultures 10/28/17 are negative to date. * Iv ABx: Cefepime (10/12/17 through 10/24/17), Aztreonam (10/13/17 through )), Diflucan (10/14/17 through 10/26/17). * Currently on Meropenem 500 mg IV Q8H (10/28/17), Micofungin 100 mg IV Q24H () Flagyl (10/16/17). * Dr. Lazar spoke with 11/02, she does not want Permacath replaced given cardiac risk for operation/anesthesia. * ID Recommended for permcath and sacral debrdiement by ID, has refused 11/02, and will have to revisit this conversation given elevation in white count ( but as of 11/07/17 it is declining and there have been NO fevers) 6). Hx Pneumonia, Fungemia * ID on the case-->help appreciated * Currently on Meropenem 500 mg IV Q8H (10/28/17-present ), Micofungin 100 mg IV Q24H (10/27/17-present) Flagyl 500 GT Q8H (10/16/17-present). * ID recommends Permcath to be exchanged out and sacral debridement; however, has refused, last had conversation on Tue, 11/02 given cardiac risk for invasive operation. Will need to revisit this conversation to affirm this sentiment given elevation in white count 7). Hx HTN: * Lopressor 12.5mg PEG BID with holding parameters 8). Hx CKD on HD . * Family would like to continue HD through current Permacath and declined surgical intervention to change catheter (due to the Blood Culture 10/24/17 being positive for Reny glabrata) as recommended by Vascular Surgery and Infectious Disease. * Dr. Lazar discussed with at bedside 11/02, she continues to deny the exchange secondary to cardiac risk. * Phoslo 1334mg PO TIDCC * Epocrit 10,000 unit IV MWF 9). Hx DM: * Levemir 35 units [id number] * monitor [id number] * HgbA1c 8.4 10). Hx HLD * Crestor 10mg PO qHS 11). Hx Anemia: * Eliquis stopped 10/24/17 and was transfused 2 units PRBCs. * CBC morning 10/25/17 dropped from 11.2 post trasfusion 10/24/17 to 10.2 morning 10/25/17. * Stool Occult is Positive and GI Dr. Dsouza was reconsulted however no further workup recommended in light of patient current status. * Procrit 10,000 units M-W-F * s/p1 unit of PRBC 11/04 given declining H/H * HgB/Hct are currently stable 12). Hx DVT * Eliquis stopped 10/24/17 given positive bloody stool * Repeat dopplers LE 08/09/17 are negative for DVT * Left UE Doppler 11/08/17 was POSITIVE for DVTs in Left Brachial and Left Axillary Veins: Can NOT anticoagulate due to history of bleeding (requiring blood transfusion) with anticoagulation 13). Hx UTI: * Yeast on culture 10/24/17. He is currently on Micofungin 100 mg IV Q24H. He may be colonized with this. * ID Recommended for permcath and sacral debrdiement by ID, has refused 11/02 will to revisit this conversation given elevation in white count. 14). Hx Alzheimer's Dementia * CT head w/o contrast (08/10/17):acute os subacute lacune infarct is not excluded in the left basal ganglia inferiorly with definitive chronic lacune identified in the right basal ganglia superiorly. No acute or subacute lobar brain infarction is appreciable by standard CT criteria. Mild age-related neuro * CT Head w/o contrast (10/14/17): no intracranial mass, hemorrhage, or evidence of acute infarct. 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 Old right external capsule ischemic change. Age related atrophy and chronic microvascular ischemic change * Note: patient does listen to his at bedside, follows simple commands 15). Hx Sacral Ulcer: * General surgery (Dr. Forbes) on board-->help appreciated * Bone Scan performed 09/17/17 to check for Osteomyelitis at the Sacrum: negative for osteomyelitis * Currently on MediHoney daily, family has declined further debridement by surgery. Wound care on board * Recommended for permcath and sacral debrdiement by ID, has refused 11/02, and will have to revisit this conversation given elevation in white count. 16). Hx Right Heal Ulcer * Podiatry (Dr. Lundberg) on board-->help appreciated * Prevalon boots * Improved on exam and area of necrosis/unstageable area is decreased. Santyl and Optifoam daily. Pravolon boots 17). Hx Elevated LFTs * Normalized; patient is on statin and Micafungin 18). Diarrhea: * On Rectal Seal and producing dark brown/black stools that are watery. Stool Studies 10/20/17 are negative * On loperamide PRN 19). Hx Hyponatremia: * Normalized 20). Hx PEG Tube: * Vital 1.5 at 50 ml/hour 21). Hx Hypocalcemia: * Calcitriol 22). Prophylactic Measures: * Vitamin C, Dulcolax PRN, Pepcid, MVI, Zofran PRN, Florastor * Started on dialysis 08/15/17 * s/p Right Chest Permcath 08/22/17--->Recommended by ID to exchange out but has refused. Will need to revisit given elevation in WBC * S/P Tracheostomy 08/22/17 * S/P Peg tube placement 08/25/17 * S/p insertion of right posterior chest tube 08/19-->removed 08/24/17 * Passy Flex Trach placed 09/15/17 * s/p new mid line (left upper extremity) 10/26/17 prior mid line removed and tip sent for culture and was negative. Midline left arm was removed 11/06/17 due to bleeding from site. NO Midline/PICC can be placed on Right UE due to the Right Chvll-Q-Dvda and can not be placed on the Left UE due to the Left Brachia/ Axillary DVTs * (Jovita Serrano): * Patient is now: DNR Disposition: Recommended by ID to get sacral debridement and permacath exchange out. Dr. Lazar spoke with on Tuesday, 11/02 but had refused. 11/08/17: Extensive conversation with today at the time of exam. 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 If debridement did take place then there would be no guarantees that this would improve considering his multiple comorbidities and that this will also likely be extremely painful to patient. Also that if these areas were not debrided, then we ran the risk for sepsis as well osteomyelitis. So unfortunately this placed us between a rock and a hard place concerning this issue. Considering this, I asked her to consider Hospice and explained to her that this would involve discontinuing HD, antibiotics and would involve making him as comfortable as possible. I have reached out to Palliative Care Nurse Domitila and explained to that Nurse Ramesh will speak with her 11/09/17. also asked about the possibility of spinal anesthesia for the debridement and I told her that I would check with the surgery team but also reminded her of the original concerns about patient pain after the procedure and likelihood of lack of improvement considering the multiple comorbidities. 11/09/17: Nurse Ramesh spoke with via phone (concerning what I discussed with her in person on 11/08/17) and will meet with her on 11/10/17. 11/10/17: Nurse Ramesh met with . [place] that may be undocumented and relies on patient's benefits for financial source. Considering my conversation with patient on 11/08/17, I have ordered [employer] consultation for further recommendations. Nurse Ramesh will speak with [employer] Dr. Renan Bowles whose help will be appreciated concerning this issue. Cullen Barth D.O.
[2017-11-10 08:22] LABS: BASO # 0.1 K/uL (0.0-0.2); BASO % 0.8 % (0.0-2.0); EOS # 0.1 K/uL (0.0-0.7); EOS % 0.6 % (0.0-4.0); HEMATOCRIT 31.8 % (35.0-51.0); LYMPH # 1.5 K/uL (1.0-4.3); LYMPH % 9.2 % (20.0-40.0); MEAN CELL VOLUME 92.7 fL (80.0-94.0); MEAN CORPUSCULAR HEMOGLOBIN 28.9 pg (27.0-31.0); MEAN CORPUSCULAR HGB CONC 31.2 g/dL (33.0-37.0); MEAN PLATELET VOLUME 7.3 fL (7.2-11.7); MONO # 1.1 K/uL (0.0-0.8); MONO % 6.7 % (0.0-10.0); NRBC % 0.2 % (0.0-2.0); PLATELET COUNT 723 K/uL (130-400); RED CELL DISTRIBUTION WIDTH 23.2 % (11.5-14.5); WHITE BLOOD COUNT 16.4 K/uL (4.8-10.8)
[2017-11-10 08:25] LABS: ALB/GLOB RATIO 0.9 (1.0-2.1); BILIRUBIN,TOTAL 0.3 mg/dL (0.2-1.3); CALCIUM 7.6 mg/dl (8.6-10.4); POTASSIUM 4.6 mmol/L (3.6-5.2); TOTAL PROTEIN 5.3 g/dL (6.3-8.3)
[2017-11-10 09:55] LABS: MYELOCYTE 1 % (0-0); NEUTROPHIL 87 % (50-75); NUCLEATED RED BLOOD CELL 1 % (0-0); TOTAL CELLS COUNTED 100
--- NOTE | 2017-11-10 10:13 | CP.PCM.PN ---
Subjective - Date & Time of Evaluation Date of Evaluation: 11/10/17 Time of Evaluation: 10:11 - Subjective Subjective: Same lethargy; on trach collar; dry cough Stable dialysis 11/09- UF 1000ml Labs acceptable Remains on antimicrobials Objective - Vital Signs/Intake and Output Vital Signs (last 24 hours): Temp Pulse Resp BP Pulse Ox 98.6 F 110 H 20 120/66 98 11/10/17 08:04 11/10/17 08:04 11/10/17 08:04 11/10/17 08:04 11/10/17 08:04 Intake and Output: 11/10/17 11/10/17 06:59 18:59 Intake Total 1460 Output Total 100 Balance 1360 - Medications Medications: Current Medications Ascorbic Acid (Vitamin C 500 Mg Tab) 500 mg PEG DAILY [facility] Last Admin: 11/09/17 09:44 Dose: Not Given Aspirin (Aspirin Chewable) 81 mg PO DAILY [facility] Last Admin: 11/09/17 09:42 Dose: Not Given Calcitriol (Rocaltrol) 0.25 mcg PEG DAILY [facility] Last Admin: 11/09/17 09:44 Dose: Not Given Calcium Acetate (Phoslo) 2,001 mg GT TIDCC [facility] Last Admin: 11/10/17 08:34 Dose: 2,001 mg Epoetin Chencho (Procrit) 10,000 unit IV MWF [facility] Last Admin: 11/09/17 11:53 Dose: 10,000 unit Micafungin Sodium 100 mg/ (Sodium Chloride) 100 mls @ 100 mls/hr IV Q24H [facility] Last Admin: 11/09/17 18:21 Dose: 100 mls/hr Meropenem 500 mg/ Sodium (Chloride) 100 mls @ 50 mls/hr IVPB Q8 [facility] Last Admin: 11/10/17 05:24 Dose: 50 mls/hr Insulin Aspart (Novolog) 0 unit SC Q6 [facility] PRN Reason: Protocol Last Admin: 11/10/17 06:41 Dose: 3 unit Insulin Detemir (Levemir) 35 unit SC Q12 [facility] Last Admin: 11/09/17 22:47 Dose: 35 unit Loperamide HCl (Imodium) 1 mg PO Q4H PRN PRN Reason: Diarrhea Last Admin: 11/04/17 21:10 Dose: 1 mg Metoprolol Tartrate (Lopressor) 12.5 mg PEG BID [facility] Last Admin: 11/09/17 18:18 Dose: 12.5 mg Multivitamins (Hexavitamin) 1 tab PEG DAILY [facility] Last Admin: 11/09/17 09:43 Dose: Not Given Pantoprazole Sodium (Protonix Inj) 40 mg IVP DAILY [facility] Last Admin: 11/09/17 09:43 Dose: Not Given Rosuvastatin Calcium (Crestor) 10 mg PO HS [facility] Last Admin: 11/09/17 22:47 Dose: 10 mg Saccharomyces Boulardii (Florastor) 250 mg PO BID [facility] Last Admin: 11/09/17 18:17 Dose: 250 mg Vitamin A (Vitamin A & D Oint Ud Foilpak) 0.5 ea TOP Q1H PRN PRN Reason: Dry skin Last Admin: 11/05/17 13:12 Dose: 0.5 ea - Labs Labs: 11/10/17 08:04 11/10/17 08:04 PT 13.4 SECONDS (9.7-12.2) H 10/14/17 16:30 INR 1.2 10/14/17 16:30 APTT 28 SECONDS (21-34) 10/14/17 16:30 - Constitutional Appears: Confused, Chronically Ill - Head Exam Head Exam: ATRAUMATIC, NORMAL INSPECTION - Eye Exam Eye Exam: EOMI, Normal appearance - Neck Exam Neck Exam: Normal Inspection. absent: Tenderness - Respiratory Exam Respiratory Exam: Rhonchi, Respiratory Distress - Cardiovascular Exam Cardiovascular Exam: Tachycardia, Irregular Rhythm - GI/Abdominal Exam GI & Abdominal Exam: Soft. absent: Tenderness - Neurological Exam Neurological Exam: Altered, Motor Sensory Deficit - Skin Skin Exam: Dry, Warm Assessment and Plan (1) Acute on chronic renal failure Status: Resolved (2) CAD (coronary artery disease) Status: Chronic (3) CHF exacerbation Status: Chronic (4) Type 2 diabetes mellitus with diabetic nephropathy Status: Acute (5) Cardiorenal disease Status: Acute (6) ESRD (end stage renal disease) Status: Acute (7) Sacral decubitus ulcer Status: Acute - Assessment and Plan (Free Text) Plan: IV antimicrobials Dialysis MWF monitor BP supportive care
[2017-11-10] MEDS: Multiple Vitamins Tab PEG SCH (11:26)
[2017-11-10] MEDS: Saccharomyces Boulardi 250 mg Cap PO SCH ×2 (11:26→18:05)
[2017-11-10] MEDS: Insulin Detemir 100 units/ml Vial (Levemir) SC SCH ×2 (14:13→21:55)
[2017-11-10] MEDS: Micafungin 100 MG in Sodium Chloride 0.9% 100 ML IV SCH (17:40)
--- NOTE | 2017-11-10 19:58 | CP.PCM.PN ---
Subjective - Date & Time of Evaluation Date of Evaluation: 11/10/17 Time of Evaluation: 10:15 - Subjective Subjective: Patient seen and evaluated Objective - Vital Signs/Intake and Output Vital Signs (last 24 hours): Temp Pulse Resp BP Pulse Ox 97.3 F L 101 H 22 120/66 98 11/10/17 15:25 11/10/17 16:04 11/10/17 15:25 11/10/17 16:04 11/10/17 16:04 Intake and Output: 11/10/17 11/11/17 18:59 06:59 Intake Total 580 Output Total 0 Balance 580 - Medications Medications: Current Medications Ascorbic Acid (Vitamin C 500 Mg Tab) 500 mg PEG DAILY [facility] Last Admin: 11/10/17 11:29 Dose: 500 mg Aspirin (Aspirin Chewable) 81 mg PO DAILY [facility] Last Admin: 11/10/17 11:26 Dose: 81 mg Calcitriol (Rocaltrol) 0.25 mcg PEG DAILY [facility] Last Admin: 11/10/17 11:36 Dose: Not Given Calcium Acetate (Phoslo) 2,001 mg GT TIDCC [facility] Last Admin: 11/10/17 17:34 Dose: 2,001 mg Epoetin Chencho (Procrit) 10,000 unit IV MWF [facility] Last Admin: 11/09/17 11:53 Dose: 10,000 unit Micafungin Sodium 100 mg/ (Sodium Chloride) 100 mls @ 100 mls/hr IV Q24H [facility] Last Admin: 11/10/17 17:40 Dose: 100 mls/hr Meropenem 500 mg/ Sodium (Chloride) 100 mls @ 50 mls/hr IVPB Q8 [facility] Last Admin: 11/10/17 14:15 Dose: 50 mls/hr Insulin Aspart (Novolog) 0 unit SC Q6 [facility] PRN Reason: Protocol Last Admin: 11/10/17 17:34 Dose: 4 unit Insulin Detemir (Levemir) 35 unit SC Q12 [facility] Last Admin: 11/10/17 14:13 Dose: 35 unit Loperamide HCl (Imodium) 1 mg PO Q4H PRN PRN Reason: Diarrhea Last Admin: 11/04/17 21:10 Dose: 1 mg Metoprolol Tartrate (Lopressor) 12.5 mg PEG BID [facility] Last Admin: 11/10/17 17:36 Dose: 12.5 mg Multivitamins (Hexavitamin) 1 tab PEG DAILY [facility] Last Admin: 11/10/17 11:26 Dose: 1 tab Pantoprazole Sodium (Protonix Inj) 40 mg IVP DAILY [facility] Last Admin: 11/10/17 11:26 Dose: 40 mg Rosuvastatin Calcium (Crestor) 10 mg PO HS [facility] Last Admin: 11/09/17 22:47 Dose: 10 mg Saccharomyces Boulardii (Florastor) 250 mg PO BID [facility] Last Admin: 11/10/17 18:05 Dose: 250 mg Vitamin A (Vitamin A & D Oint Ud Foilpak) 0.5 ea TOP Q1H PRN PRN Reason: Dry skin Last Admin: 11/05/17 13:12 Dose: 0.5 ea - Labs Labs: 11/10/17 08:04 11/10/17 08:04 PT 13.4 SECONDS (9.7-12.2) H 10/14/17 16:30 INR 1.2 10/14/17 16:30 APTT 28 SECONDS (21-34) 10/14/17 16:30
[2017-11-11] MEDS: (Novolog) Insulin Aspart, Recombinant 100 u/ml 10 ml vial SC SCH ×4 (00:11→18:00)
[2017-11-11] MEDS: Meropenem 500 MG in Sodium Chloride 0.9% 100 ML IVPB SCH ×3 (05:41→21:50)
--- NOTE | 2017-11-11 06:13 | CP.PCM.PN ---
<Vinicio Galeas - Last Filed: 11/11/17 15:32> Subjective - Date & Time of Evaluation Date of Evaluation: 11/11/17 Time of Evaluation: 06:11 - Subjective Subjective: PGY-[address] Barth's Service Pt seen and examined at bedside. Nursing reports no acute events overnight. Patient able to respond to questions by shaking head. Patient remains on trach collar so ROS unobtainable. Objective - Vital Signs/Intake and Output Vital Signs (last 24 hours): Temp Pulse Resp BP Pulse Ox 99.5 F 115 H 20 133/69 96 11/11/17 00:00 11/11/17 00:00 11/11/17 00:00 11/11/17 00:00 11/11/17 00:00 Intake and Output: 11/10/17 11/11/17 18:59 06:59 Intake Total 580 780 Output Total 0 300 Balance 580 480 - Medications Medications: Current Medications Ascorbic Acid (Vitamin C 500 Mg Tab) 500 mg PEG DAILY [facility] Last Admin: 11/10/17 11:29 Dose: 500 mg Aspirin (Aspirin Chewable) 81 mg PO DAILY [facility] Last Admin: 11/10/17 11:26 Dose: 81 mg Calcitriol (Rocaltrol) 0.25 mcg PEG DAILY [facility] Last Admin: 11/10/17 11:36 Dose: Not Given Calcium Acetate (Phoslo) 2,001 mg GT TIDCC [facility] Last Admin: 11/10/17 17:34 Dose: 2,001 mg Epoetin Asim (Procrit) 10,000 unit IV MWF [facility] Last Admin: 11/09/17 11:53 Dose: 10,000 unit Micafungin Sodium 100 mg/ (Sodium Chloride) 100 mls @ 100 mls/hr IV Q24H [facility] Last Admin: 11/10/17 17:40 Dose: 100 mls/hr Meropenem 500 mg/ Sodium (Chloride) 100 mls @ 50 mls/hr IVPB Q8 [facility] Last Admin: 11/11/17 05:41 Dose: 50 mls/hr Insulin Aspart (Novolog) 0 unit SC Q6 [facility] PRN Reason: Protocol Last Admin: 11/11/17 05:50 Dose: 2 unit Insulin Detemir (Levemir) 35 unit SC Q12 [facility] Last Admin: 11/10/17 21:55 Dose: 35 unit Loperamide HCl (Imodium) 1 mg PO Q4H PRN PRN Reason: Diarrhea Last Admin: 11/04/17 21:10 Dose: 1 mg Metoprolol Tartrate (Lopressor) 12.5 mg PEG BID [facility] Last Admin: 11/10/17 17:36 Dose: 12.5 mg Multivitamins (Hexavitamin) 1 tab PEG DAILY [facility] Last Admin: 11/10/17 11:26 Dose: 1 tab Pantoprazole Sodium (Protonix Inj) 40 mg IVP DAILY [facility] Last Admin: 11/10/17 11:26 Dose: 40 mg Rosuvastatin Calcium (Crestor) 10 mg PO HS [facility] Last Admin: 11/10/17 21:54 Dose: 10 mg Saccharomyces Boulardii (Florastor) 250 mg PO BID [facility] Last Admin: 11/10/17 18:05 Dose: 250 mg Vitamin A (Vitamin A & D Oint Ud Foilpak) 0.5 ea TOP Q1H PRN PRN Reason: Dry skin Last Admin: 11/05/17 13:12 Dose: 0.5 ea - Labs Labs: 11/10/17 08:04 11/10/17 08:04 PT 13.4 SECONDS (9.7-12.2) H 10/14/17 16:30 INR 1.2 10/14/17 16:30 APTT 28 SECONDS (21-34) 10/14/17 16:30 - Constitutional Appears: Non-toxic, No Acute Distress - Head Exam Head Exam: ATRAUMATIC, NORMAL INSPECTION, NORMOCEPHALIC - Eye Exam Eye Exam: EOMI, Normal appearance. absent: Scleral icterus - ENT Exam ENT Exam: Mucous Membranes Moist - Neck Exam Additional comments: trach collar in place, clear/yellow secretions noted - Respiratory Exam Respiratory Exam: Decreased Breath Sounds, Rhonchi. absent: Clear to Ausculation Bilateral Additional comments: no accessory muscle use - Cardiovascular Exam Cardiovascular Exam: REGULAR RHYTHM, +S1, +S2 - GI/Abdominal Exam GI & Abdominal Exam: Distended, Soft Additional comments: peg tube in place - Back Exam Back Exam: absent: CVA tenderness (L), CVA tenderness (R) - Neurological Exam Neurological Exam: Alert, Awake, Oriented x3 - Psychiatric Exam Psychiatric exam: Normal Affect, Normal Mood - Skin Skin Exam: Normal Color, Warm - Additional Findings Additional findings: unstageable sacral ulcer stage 2 right ischial ulcer Assessment and Plan - Assessment and Plan (Free Text) Plan: 77M with ARDS s/p cardiac arrest, with pulmonary edema and NSTEMI * Ipratropium 0.02% (atrovent) 0.5mg IH RQ6H * 10/24 CXR: questionable interval atelectasis or infiltrate in medial right base * 10/23 mid bibasilar atelectasis. questionable small left-sided effusion * CXR left lobe atelectasis v pna * 10/26 right midline removed, tip of midline sent for culture 10/26, new midline placed on left arm 10/26 * 10/[address] Lawrence: fungal infection in blood, lines should be changed. * 10/[address] Lawrence: fungal infection in blood, lines should be changed. * reach out to Mrs. Wolf, if family does want patient on dialysis: dialysis needs to be changed * f/u echo to rule out vegetations * 10/28: Family wants patient to receive dialysis; consulted surgery for permacath replacement. * Surgery consulted, Dr. Forbes * Patient received dialysis today; developed sinus tachycardia during; continue to monitor on telemetry. * 10/29 Digoxin 0.25 mg IV was given to patient for the sinus tachycardia. * ECHO: LV function markedly reduced, diffuse hypokinesis; septum is akinetic; LV EF 20%; Trace AR. * Continue mycamine 100mg POQD, merrem 500 POQD, flagy 500mg GT Q8 (discontinued ) DVT Left Axillary and Left Brachial Veins * Duplex scan LUE 11/09: acute thrombosis of left axillary and brachial veins with severe reduction of venous return * Anticoagulation contraindicated as patient had a recent bleed with a drop in Hgb due to new eliquis use * PICC access in left arm not possible due to LUE DVT and right arm with permacath thus no midline can be placed on either upper extremities Constipation, resolved * Dulcolax 10mg OR Once PRN 10/21, patient had a dark brown BM yesterday, none today per nursing staff * Patient is having diarrhea in the Flexseal. Cultures were taken, currently negative * GI Dr. Wills consulted: does not feel that it would be in the best interest of the patient at this time to do any invasive procedure or examination. Diarrhea * One dose of immodium given overnight Hypotensive, resolved * Metoprolol on hold (restarted) HTN * Better controlled recently; * 10/31 Lopressor 5mg once was given today for high blood pressure Leukocytosis * current cultures negative (blood, stool and wound) * 10/14 urine culture: yeast * 10/14 blood culture is positive for yeast * 10/26 WBC 25.5 * 10/27 WBC 17 * Saccharomyces boulardi (florastor) 250mg PO BID * Blood cx x1 from 10/24: positive for Reny Glabrata * Second blood cx showed no growth * As per ID, suggested replacing dialysis lines due to fungal infection * 10/26: catheter tip cx: no growth * Continue mycamine 100mg PO QD, Flagyl 500mg GT Q8m (discontinued), Merem 500mg IV Q8 Abnormal Stress test, history of AICD, hx CAD * ASA 81mg POQD * Rosuvastatin calcium 10mg PO QHS Atrial Flutter, resolved * Cardiology Consult (Dr. Cortés) * Aspirin 81mg PO daily * c/w Eliquis 2.5mg PO bid * Eliquis held d/t Hgb 6.6 10/24 Low hemoglobin * Epoeitin asim 22671 u IV M, W, F * 10/24: Eliquis held d/t Hgb 6.6; 2uPRBC administered after dialysis * Hgb 11.2 after 2uPRBC * 11/04 1 uPRBC Hypocalcemia * Calcium corrects w albumin * Calcitriol 0.25 mcg PEG daily UTI, yeast positive * 10/14 urine positive for yeast * Discontinued Diflucan 100mg/50cc NS @ 55cc/hr QD Unstageable Sacral Ulcer, Left Ear Auriclular ulcer, Right Heal Ulcer * Continue to monitor HTN, medications held until blood pressure is higher * Well-controlled * Midodrine (proamatine) * Metoprolol 25mg PEG BID BS Type DM 2 * Elevated over course * A1C: 8.4 * Levemir 35 units SC Q12 * ISS * Glucose accuchecks CKD with Dialysis * Dialysis MWF via permacath * Patient received dialysis today, 10/28. * During dialysis, patient developed sinus tachycardia. continue to monitor on telemetry Hyperphosphatemia patient is on Phoslo [address] Ruben - Elevated but down-trending Pseudohypercalcemia Ca 7.6 on AM labs - Corrected calcium 8.8 Prophylaxis * Pepcid 20mg POQD * Zofran 4mg IVP Q8H PRN Diet: tube feeds: Vital 1.2 initial rate 20cc/hr with goal rate 70cc/hr Patient is at goal rate Social Work Patient's new insurance does not accept LTAC. 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 Comfort measures in place. POLST in chart, signed DNR as of 1899 on 10/25/1710/25 Patient was made DNR by of Patient Disposition: Maryann, palliative care nurse spoke to 11/09 about hospice; not amenable to hospice for patient at this time. Maryann has called Ethics consult. Follow up recommendations. Vinicio Galeas PGY-[address] Cullen Barth <Cullen Barth - Last Filed: 11/11/17 20:31> Objective - Vital Signs/Intake and Output Vital Signs (last 24 hours): Temp Pulse Resp BP Pulse Ox 99.1 F 96 H 22 126/69 97 11/11/17 15:00 11/11/17 15:00 11/11/17 15:00 11/11/17 15:00 11/11/17 15:00 Intake and Output: 11/11/17 11/12/17 18:59 06:59 Intake Total 680 Output Total 100 Balance 580 - Medications Medications: Current Medications Ascorbic Acid (Vitamin C 500 Mg Tab) 500 mg PEG DAILY [facility] Last Admin: 11/11/17 09:11 Dose: 500 mg Aspirin (Aspirin Chewable) 81 mg PO DAILY [facility] Last Admin: 11/11/17 09:11 Dose: 81 mg Calcitriol (Rocaltrol) 0.25 mcg PEG DAILY [facility] Last Admin: 11/11/17 09:12 Dose: Not Given Calcium Acetate (Phoslo) 2,001 mg GT TIDCC [facility] Last Admin: 11/11/17 18:34 Dose: 2,001 mg Epoetin Asim (Procrit) 10,000 unit IV MWF [facility] Last Admin: 11/11/17 11:17 Dose: 10,000 unit Micafungin Sodium 100 mg/ (Sodium Chloride) 100 mls @ 100 mls/hr IV Q24H [facility] Last Admin: 11/11/17 18:35 Dose: 100 mls/hr Meropenem 500 mg/ Sodium (Chloride) 100 mls @ 50 mls/hr IVPB Q8 [facility] Last Admin: 11/11/17 14:21 Dose: 50 mls/hr Insulin Aspart (Novolog) 0 unit SC Q6 [facility] PRN Reason: Protocol Last Admin: 11/11/17 14:16 Dose: Not Given Insulin Detemir (Levemir) 35 unit SC Q12 [facility] Last Admin: 11/11/17 09:32 Dose: 35 unit Loperamide HCl (Imodium) 1 mg PO Q4H PRN PRN Reason: Diarrhea Last Admin: 11/04/17 21:10 Dose: 1 mg Metoprolol Tartrate (Lopressor) 12.5 mg PEG BID [facility] Last Admin: 11/11/17 18:34 Dose: 12.5 mg Multivitamins (Hexavitamin) 1 tab PEG DAILY [facility] Last Admin: 11/11/17 09:11 Dose: 1 tab Pantoprazole Sodium (Protonix Inj) 40 mg IVP DAILY [facility] Last Admin: 11/11/17 09:30 Dose: 40 mg Rosuvastatin Calcium (Crestor) 10 mg PO HS [facility] Last Admin: 11/10/17 21:54 Dose: 10 mg Saccharomyces Boulardii (Florastor) 250 mg PO BID [facility] Last Admin: 11/11/17 18:34 Dose: 250 mg Vitamin A (Vitamin A & D Oint Ud Foilpak) 0.5 ea TOP Q1H PRN PRN Reason: Dry skin Last Admin: 11/05/17 13:12 Dose: 0.5 ea - Labs Labs: 11/11/17 08:21 11/11/17 08:21 PT 13.4 SECONDS (9.7-12.2) H 10/14/17 16:30 INR 1.2 10/14/17 16:30 APTT 28 SECONDS (21-34) 10/14/17 16:30 Attending/Attestation - Attestation I have personally seen and examined this patient.: Yes I have fully participated in the care of the patient.: Yes I have reviewed all pertinent clinical information, including history, physical exam and plan: Yes Notes (Text): 11/11/17 20:27 Patient was seen and examined at 3:00 PM 11/11/17 355 A Exam, assessment and plan were thoroughly gone over with the resident Also on exam: Sacral ulcer extending to involve the bilateral ischial tuberosities: unstageable Right Heal ulcer: unstageable Assessment/Plans 1). Hx Acute Respiratory Failure/ARDS/Cadiac Arrest/NSTEMI * Dr Cortés (cardiology) on the case-->help appreciated * Dr. Mena (pulmonary) on the case-->help appreciated * Code Blue on 08/10: asystole, cardiopulmonary resuscitative measures initiated , requiring 3 epis, bicarbonate, ROSC achieved and intubated and brought to the ICU. Patient has had multiple for hypotension. Latest PAPER SLITTER was on 10/14; stable awaiting for tele bed when available. * Atrovent 0.5mg Inhaled RQ6H * Aspirin 81mg PO daily * Lopressor 12.5mg PO BID with holding parameters * Midodrine 10mg PO TID * Crestor 10mg PO qHS 2). Hx Abnormal Stress Test/AICD/CAD * Dr Cortés (cardiology) on the case-->help appreciated * Dr. Mena (pulmonary) on the case-->help appreciated * Code Blue on 08/10: asystole, cardiopulmonary resuscitative measures initiated , requiring 3 epis, bicarbonate, ROSC achieved and intubated and brought to the ICU. Patient has had multiple for hypotension. Latest PAPER SLITTER was on 10/14; stable awaiting for tele bed when available. * Aspirin 81mg PO daily * Lopressor 12.5mg PO BID with holding parameters * Midodrine 10mg PO TID * Crestor 10mg PO qHS 3). Hx Atrial Flutter: * stopped Eliquis 10/24/17 secondary significant drop in HgB. Heart Rate is elevated. Ordered for Lopressor 5mg iVX1 on 10/31 * Lopressor 12.5mg PO BID with holding parameters 4). 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 Leukocytosis * Infectious Disease (Dr. Lawrence) on the case-->help appreciated * Blood Culture 10/22/17 is finalized as negative. * Sputum culture 10/14/17 is negative. * Stool cultures 10/20/17 are negative. 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 * Right Arm Midline Tip 10/06/17 culture is negative and removed. Midline Tip Culture 10/26/17 is negative. * Blood Cultures 10/28/17 are negative to date. * Iv ABx: Cefepime (10/12/17 through 10/24/17), Aztreonam (10/13/17 through )), Diflucan (10/14/17 through 10/26/17). * Currently on Meropenem 500 mg IV Q8H (10/28/17), Micofungin 100 mg IV Q24H () Flagyl (10/16/17). * Dr. Lazar spoke with 11/02, she does not want Permacath replaced given cardiac risk for operation/anesthesia. * ID Recommended for permcath and sacral debrdiement by ID, has refused 11/02, and will have to revisit this conversation given elevation in white count 6). Hx Pneumonia, Fungemia * ID on the case-->help appreciated * Currently on Meropenem 500 mg IV Q8H (10/28/17-present ), Micofungin 100 mg IV Q24H (10/27/17-present) Flagyl 500 GT Q8H (10/16/17-present). * ID recommends Permcath to be exchanged out and sacral debridement; however, has refused, Dr. Lazar had conversation on Tue, 11/02 given cardiac risk for invasive operation. 7). Hx HTN: * Lopressor 12.5mg PEG BID with holding parameters 8). Hx CKD on HD . * Family would like to continue HD through current Permacath and declined surgical intervention to change catheter (due to the Blood Culture 10/24/17 being positive for Reny glabrata) as recommended by Vascular Surgery and Infectious Disease. * Dr. Lazar discussed with at bedside 11/02, she continues to deny the exchange secondary to cardiac risk. * Phoslo 1334mg PO TIDCC * Epocrit 10,000 unit IV MWF 9). Hx DM: * Levemir 35 units ioci21D * monitor [id number] * HgbA1c 8.4 10). Hx HLD * Crestor 10mg PO qHS 11). Hx Anemia: * Eliquis stopped 10/24/17 and was transfused 2 units PRBCs. * CBC morning 10/25/17 dropped from 11.2 post trasfusion 10/24/17 to 10.2 morning 10/25/17. * Stool Occult is Positive and GI Dr. Dsouza was reconsulted however no further workup recommended in light of patient current status. * Procrit 10,000 units M-W- * s/p1 unit of PRBC 11/04 given declining H/H * HgB/Hct are currently stable 12). Hx DVT * Eliquis stopped 10/24/17 given positive bloody stool * Repeat dopplers LE 08/09/17 are negative for DVT * Left UE Doppler 11/08/17 was POSITIVE for DVTs in Left Brachial and Left Axillary Veins: Can NOT anticoagulate due to history of bleeding (requiring blood transfusion) with anticoagulation 13). Hx UTI: * Yeast on culture 10/24/17. He is currently on Micofungin 100 mg IV Q24H. He may be colonized with this. * ID Recommended for permcath and sacral debrdiement by ID, has refused 11/02 will to revisit this conversation given elevation in white count. 14). Hx Alzheimer's Dementia * CT head w/o contrast (08/10/17):acute os subacute lacune infarct is not excluded in the left basal ganglia inferiorly with definitive chronic lacune identified in the right basal ganglia superiorly. No acute or subacute lobar brain infarction is appreciable by standard CT criteria. Mild age-related neuro * CT Head w/o contrast (10/14/17): no intracranial mass, hemorrhage, or evidence of acute infarct. 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 Old right external capsule ischemic change. Age related atrophy and chronic microvascular ischemic change * Note: patient does listen to his at bedside sometimes and follows simple commands but not always 15). Hx Sacral Ulcer: * General surgery (Dr. Forbes) on board-->help appreciated * Bone Scan performed 09/17/17 to check for Osteomyelitis at the Sacrum: negative for osteomyelitis * Currently on MediHoney daily, family has declined further debridement by surgery. Wound care on board * Recommended for permcath and sacral debrdiement by ID, has refused 11/02 16). Hx Right Heal Ulcer * Podiatry (Dr. Lundberg) on board-->help appreciated * Prevalon boots * Improved on exam and area of necrosis/unstageable area is decreased. Santyl and Optifoam daily. Pravolon boots 17). Hx Elevated LFTs * Normalized; patient is on statin and Micafungin 18). Diarrhea: * On Rectal Seal and producing dark brown/black stools that are watery. Stool Studies 10/20/17 are negative * On loperamide PRN 19). Hx Hyponatremia: * Normalized 20). Hx PEG Tube: * Vital 1.5 at 50 ml/hour 21). Hx Hypocalcemia: * Calcitriol 22). Prophylactic Measures: * Vitamin C, Dulcolax PRN, Pepcid, MVI, Zofran PRN, Florastor * Started on dialysis 08/15/17 * s/p Right Chest Permcath 08/22/17--->Recommended by ID to exchange out but has refused. Will need to revisit given elevation in WBC * S/P Tracheostomy 08/22/17 * S/P Peg tube placement 08/25/17 * S/p insertion of right posterior chest tube 08/19-->removed 08/24/17 * Passy Flex Trach placed 09/15/17 * s/p new mid line (left upper extremity) 10/26/17 prior mid line removed and tip sent for culture and was negative. Midline left arm was removed 11/06/17 due to bleeding from site. NO Midline/PICC can be placed on Right UE due to the Right [id number] and can not be placed on the Left UE due to the Left Brachia/ Axillary DVTs * (Jovita Serrano): * Patient is now: DNR Disposition: Recommended by ID to get sacral debridement and permacath exchange out. Dr. Lazar spoke with on Tuesday, 11/02 but had refused. 11/08/17: Extensive conversation with today at the time of exam. 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 If debridement did take place then there would be no guarantees that this would improve considering his multiple comorbidities and that this will also likely be extremely painful to patient. Also that if these areas were not debrided, then we ran the risk for sepsis as well osteomyelitis. So unfortunately this placed us between a rock and a hard place concerning this issue. Considering this, I asked her to consider Hospice and explained to her that this would involve discontinuing HD, antibiotics and would involve making him as comfortable as possible. I have reached out to Palliative Care Nurse Domitila and explained to that Nurse Ramesh will speak with her 11/09/17. also asked about the possibility of spinal anesthesia for the debridement and I told her that I would check with the surgery team but also reminded her of the original concerns about patient pain after the procedure and likelihood of lack of improvement considering the multiple comorbidities. 11/09/17: Nurse Ramesh spoke with via phone (concerning what I discussed with her in person on 11/08/17) and will meet with her on 11/10/17. 11/10/17: Nurse Ramesh met with . [place] that may be undocumented and relies on patient's benefits for financial source. Considering my conversation with patient on 11/08/17, I have ordered [employer] consultation for further recommendations. Nurse Ramesh will speak with [employer] Dr. Renan Bowles whose help will be appreciated concerning this issue. 11/11/17: Awaiting [employer] evaluation. Cullen Barth D.O.
[2017-11-11 08:26] LABS: BASO # 0.1 K/uL (0.0-0.2); BASO % 0.5 % (0.0-2.0); EOS # 0.3 K/uL (0.0-0.7); EOS % 1.3 % (0.0-4.0); HEMATOCRIT 32.4 % (35.0-51.0); LYMPH % 10.1 % (20.0-40.0); MEAN CELL VOLUME 93.3 fL (80.0-94.0); MEAN PLATELET VOLUME 7.1 fL (7.2-11.7); MONO % 4.9 % (0.0-10.0); RED CELL DISTRIBUTION WIDTH 22.2 % (11.5-14.5); WHITE BLOOD COUNT 20.1 K/uL (4.8-10.8)
[2017-11-11 08:51] LABS: ALB/GLOB RATIO 0.6 (1.0-2.1); BILIRUBIN,TOTAL 0.4 mg/dL (0.2-1.3); CALCIUM 7.8 mg/dl (8.6-10.4); TOTAL PROTEIN 6.6 g/dL (6.3-8.3)
[2017-11-11] MEDS: Multiple Vitamins Tab PEG SCH (09:11)
[2017-11-11] MEDS: Saccharomyces Boulardi 250 mg Cap PO SCH ×2 (09:11→18:34)
[2017-11-11] MEDS: Insulin Detemir 100 units/ml Vial (Levemir) SC SCH ×2 (09:32→21:51)
--- NOTE | 2017-11-11 09:55 | CP.PCM.PN ---
Subjective - Date & Time of Evaluation Date of Evaluation: 11/10/17 Time of Evaluation: 11:00 - Subjective Subjective: Patient non verbal unable to talk due to condition, Objective - Vital Signs/Intake and Output Vital Signs (last 24 hours): Temp Pulse Resp BP Pulse Ox 98.5 F 116 H 20 145/63 96 11/11/17 08:42 11/11/17 08:42 11/11/17 08:42 11/11/17 08:42 11/11/17 08:42 Intake and Output: 11/11/17 11/11/17 06:59 18:59 Intake Total 1460 Output Total 400 Balance 1060 - Medications Medications: Current Medications Ascorbic Acid (Vitamin C 500 Mg Tab) 500 mg PEG DAILY [facility] Last Admin: 11/11/17 09:11 Dose: 500 mg Aspirin (Aspirin Chewable) 81 mg PO DAILY [facility] Last Admin: 11/11/17 09:11 Dose: 81 mg Calcitriol (Rocaltrol) 0.25 mcg PEG DAILY [facility] Last Admin: 11/11/17 09:12 Dose: Not Given Calcium Acetate (Phoslo) 2,001 mg GT TIDCC [facility] Last Admin: 11/11/17 09:11 Dose: 2,001 mg Epoetin Chencho (Procrit) 10,000 unit IV MWF [facility] Last Admin: 11/09/17 11:53 Dose: 10,000 unit Micafungin Sodium 100 mg/ (Sodium Chloride) 100 mls @ 100 mls/hr IV Q24H [facility] Last Admin: 11/10/17 17:40 Dose: 100 mls/hr Meropenem 500 mg/ Sodium (Chloride) 100 mls @ 50 mls/hr IVPB Q8 [facility] Last Admin: 11/11/17 05:41 Dose: 50 mls/hr Insulin Aspart (Novolog) 0 unit SC Q6 [facility] PRN Reason: Protocol Last Admin: 11/11/17 05:50 Dose: 2 unit Insulin Detemir (Levemir) 35 unit SC Q12 [facility] Last Admin: 11/11/17 09:32 Dose: 35 unit Loperamide HCl (Imodium) 1 mg PO Q4H PRN PRN Reason: Diarrhea Last Admin: 11/04/17 21:10 Dose: 1 mg Metoprolol Tartrate (Lopressor) 12.5 mg PEG BID [facility] Last Admin: 11/11/17 09:12 Dose: Not Given Multivitamins (Hexavitamin) 1 tab PEG DAILY [facility] Last Admin: 11/11/17 09:11 Dose: 1 tab Pantoprazole Sodium (Protonix Inj) 40 mg IVP DAILY [facility] Last Admin: 11/11/17 09:30 Dose: 40 mg Rosuvastatin Calcium (Crestor) 10 mg PO HS [facility] Last Admin: 11/10/17 21:54 Dose: 10 mg Saccharomyces Boulardii (Florastor) 250 mg PO BID [facility] Last Admin: 11/11/17 09:11 Dose: 250 mg Vitamin A (Vitamin A & D Oint Ud Foilpak) 0.5 ea TOP Q1H PRN PRN Reason: Dry skin Last Admin: 11/05/17 13:12 Dose: 0.5 ea - Labs Labs: 11/11/17 08:21 11/11/17 08:21 PT 13.4 SECONDS (9.7-12.2) H 10/14/17 16:30 INR 1.2 10/14/17 16:30 APTT 28 SECONDS (21-34) 10/14/17 16:30 - Constitutional Appears: Chronically Ill - Head Exam Head Exam: ATRAUMATIC, NORMAL INSPECTION, NORMOCEPHALIC - Eye Exam Eye Exam: EOMI, Normal appearance, PERRL Pupil Exam: NORMAL ACCOMODATION, PERRL - ENT Exam ENT Exam: Mucous Membranes Moist, Normal Exam - Neck Exam Additional comments: Trach present - Respiratory Exam Respiratory Exam: NORMAL BREATHING PATTERN - Cardiovascular Exam Cardiovascular Exam: REGULAR RHYTHM - GI/Abdominal Exam Additional comments: PEG - Rectal Exam Rectal Exam: Deferred - Exam Additional comments: On HD - Extremities Exam Extremities Exam: Normal Inspection, Pedal Edema - Back Exam Additional comments: Large sacral pressure sore - Neurological Exam Neurological Exam: Alert, Altered Neuro motor strength exam: Left Upper Extremity: 2/1, Right Upper Extremity: 2/1 , Left Lower Extremity: 2/1, Right Lower Extremity: 2/1 - Psychiatric Exam Psychiatric exam: Flat Affect - Skin Skin Exam: Mottled, Normal Color Assessment and Plan - Assessment and Plan (Free Text) Assessment: Late entry Patient seen and examined in bed yesterday around 11 am with his at bed side. Patient is alert, looking very sick, does not make eye contacts nor is able to fallow simple commends. latest blood , urine and sacral pressure sore C &Ss were all positive. Od concern is large sacral pressure, which is getting bigger. The Doppler of upper extrmties was positive for DVT and placing the H.L for IV antbiotics is very risky now. Patient is unable to advocate for himself and his wishes for the end of life care are not known. His condition is very complex and terminal. Medical team feels that patient would benefit fro comfort care only, as all other measures would only prolong his and suffering. These ere explained to patient's AUNG by Doctor Kaitlyn Barth. She has not made any decision and I was asked by Doctor Zoila, to discuss comfort care one more time with . Using [facility] demand, I reviewed patient's condition and vinayak concerns regarding quality of life. After confirming the had understood patient's poor prognosis and elicited her expectations of care given to her . She replied she would want to bring him back to [facility]. The was explained that it was most likly unrealistic expectation due to patient very poor condition. Further, I offered more information about comfort care only as best level of care for this dying patient. The firmly denied it saying " he is all I have ". I asked her to elaborate on her fears and concerns. Aung admitted she lived of patient's income and does not know how she would precede further without it. I suggested that patient was our priority at this time and we should do what would be best for him . did not decide on comfort care stating she had to talk to her family . This was shared with Doctor Deepthi Barth and Nehal from . Impression * This is a very sick patient unexpected to recover from his severe chronic condition * There is a great loss of quality of life * Patient's is not acting in patient's best interest due to emotional biases and fear of being left alone * admits that her only income comes from patient's SS check * I feel that there is an Ethical issue here as patient's is being unnecessary prolonged Suggestion * Biothics Consult would be very helpful in this situation * Comfort care seems as only appropriate level of care or this dying patient.
[2017-11-11] MEDS: Epoetin Alfa 10,000 unit/ml Dialysis IV SCH (11:17)
--- NOTE | 2017-11-11 13:43 | CP.PCM.PN ---
Subjective - Date & Time of Evaluation Date of Evaluation: 11/11/17 Time of Evaluation: 13:41 - Subjective Subjective: Seen at dialysis Lethargy more pronounced UF 1000ml- tolerating OK leukocytosis likely from yeast septicemia from cath infection cannot obtain ROS Objective - Vital Signs/Intake and Output Vital Signs (last 24 hours): Temp Pulse Resp BP Pulse Ox 98.0 F 122 H 24 155/70 H 96 11/11/17 10:00 11/11/17 10:00 11/11/17 13:10 11/11/17 13:10 11/11/17 08:42 Intake and Output: 11/11/17 11/11/17 06:59 18:59 Intake Total 1460 Output Total 400 Balance 1060 - Medications Medications: Current Medications Ascorbic Acid (Vitamin C 500 Mg Tab) 500 mg PEG DAILY [facility] Last Admin: 11/11/17 09:11 Dose: 500 mg Aspirin (Aspirin Chewable) 81 mg PO DAILY [facility] Last Admin: 11/11/17 09:11 Dose: 81 mg Calcitriol (Rocaltrol) 0.25 mcg PEG DAILY [facility] Last Admin: 11/11/17 09:12 Dose: Not Given Calcium Acetate (Phoslo) 2,001 mg GT TIDCC [facility] Last Admin: 11/11/17 09:11 Dose: 2,001 mg Epoetin Chencho (Procrit) 10,000 unit IV MWF [facility] Last Admin: 11/11/17 11:17 Dose: 10,000 unit Micafungin Sodium 100 mg/ (Sodium Chloride) 100 mls @ 100 mls/hr IV Q24H [facility] Last Admin: 11/10/17 17:40 Dose: 100 mls/hr Meropenem 500 mg/ Sodium (Chloride) 100 mls @ 50 mls/hr IVPB Q8 [facility] Last Admin: 11/11/17 05:41 Dose: 50 mls/hr Insulin Aspart (Novolog) 0 unit SC Q6 [facility] PRN Reason: Protocol Last Admin: 11/11/17 05:50 Dose: 2 unit Insulin Detemir (Levemir) 35 unit SC Q12 [facility] Last Admin: 11/11/17 09:32 Dose: 35 unit Loperamide HCl (Imodium) 1 mg PO Q4H PRN PRN Reason: Diarrhea Last Admin: 11/04/17 21:10 Dose: 1 mg Metoprolol Tartrate (Lopressor) 12.5 mg PEG BID [facility] Last Admin: 11/11/17 09:12 Dose: Not Given Multivitamins (Hexavitamin) 1 tab PEG DAILY [facility] Last Admin: 11/11/17 09:11 Dose: 1 tab Pantoprazole Sodium (Protonix Inj) 40 mg IVP DAILY [facility] Last Admin: 11/11/17 09:30 Dose: 40 mg Rosuvastatin Calcium (Crestor) 10 mg PO HS [facility] Last Admin: 11/10/17 21:54 Dose: 10 mg Saccharomyces Boulardii (Florastor) 250 mg PO BID [facility] Last Admin: 11/11/17 09:11 Dose: 250 mg Vitamin A (Vitamin A & D Oint Ud Foilpak) 0.5 ea TOP Q1H PRN PRN Reason: Dry skin Last Admin: 11/05/17 13:12 Dose: 0.5 ea - Labs Labs: 11/11/17 08:21 11/11/17 08:21 PT 13.4 SECONDS (9.7-12.2) H 10/14/17 16:30 INR 1.2 10/14/17 16:30 APTT 28 SECONDS (21-34) 10/14/17 16:30 - Constitutional Appears: No Acute Distress, Chronically Ill - Head Exam Head Exam: ATRAUMATIC, NORMAL INSPECTION - Eye Exam Eye Exam: EOMI, Normal appearance - Neck Exam Neck Exam: Normal Inspection. absent: Tenderness - Respiratory Exam Respiratory Exam: Rhonchi, Respiratory Distress - Cardiovascular Exam Cardiovascular Exam: Tachycardia, Irregular Rhythm - GI/Abdominal Exam GI & Abdominal Exam: Soft. absent: Tenderness - Extremities Exam Extremities Exam: Normal Inspection. absent: Tenderness - Neurological Exam Neurological Exam: Alert, CN II-XII Intact - Skin Skin Exam: Dry, Warm Assessment and Plan (1) Acute on chronic renal failure Status: Resolved (2) CAD (coronary artery disease) Status: Chronic (3) CHF exacerbation Status: Chronic (4) Type 2 diabetes mellitus with diabetic nephropathy Status: Acute (5) Cardiorenal disease Status: Acute (6) ESRD (end stage renal disease) Status: Acute (7) Sacral decubitus ulcer Status: Acute - Assessment and Plan (Free Text) Plan: dialysis MWF moderate UF IV antimicrobials supportive care
--- NOTE | 2017-11-11 16:43 | CP.PCM.PN ---
Subjective - Date & Time of Evaluation Date of Evaluation: 11/11/17 - Subjective Subjective: Patient seen and examined at bedside. Patient has trach collar and is in NAD. No fever. Per nursing patient has had increased secretions. Objective - Vital Signs/Intake and Output Vital Signs (last 24 hours): Temp Pulse Resp BP Pulse Ox 99.1 F 96 H 22 126/69 97 11/11/17 15:00 11/11/17 15:00 11/11/17 15:00 11/11/17 15:00 11/11/17 15:00 Intake and Output: 11/11/17 11/11/17 06:59 18:59 Intake Total 1460 680 Output Total 400 100 Balance 1060 580 - Medications Medications: Current Medications Ascorbic Acid (Vitamin C 500 Mg Tab) 500 mg PEG DAILY [facility] Last Admin: 11/11/17 09:11 Dose: 500 mg Aspirin (Aspirin Chewable) 81 mg PO DAILY [facility] Last Admin: 11/11/17 09:11 Dose: 81 mg Calcitriol (Rocaltrol) 0.25 mcg PEG DAILY [facility] Last Admin: 11/11/17 09:12 Dose: Not Given Calcium Acetate (Phoslo) 2,001 mg GT TIDCC [facility] Last Admin: 11/11/17 14:16 Dose: Not Given Epoetin Chencho (Procrit) 10,000 unit IV MWF [facility] Last Admin: 11/11/17 11:17 Dose: 10,000 unit Micafungin Sodium 100 mg/ (Sodium Chloride) 100 mls @ 100 mls/hr IV Q24H [facility] Last Admin: 11/10/17 17:40 Dose: 100 mls/hr Meropenem 500 mg/ Sodium (Chloride) 100 mls @ 50 mls/hr IVPB Q8 [facility] Last Admin: 11/11/17 14:21 Dose: 50 mls/hr Insulin Aspart (Novolog) 0 unit SC Q6 [facility] PRN Reason: Protocol Last Admin: 11/11/17 14:16 Dose: Not Given Insulin Detemir (Levemir) 35 unit SC Q12 [facility] Last Admin: 11/11/17 09:32 Dose: 35 unit Loperamide HCl (Imodium) 1 mg PO Q4H PRN PRN Reason: Diarrhea Last Admin: 11/04/17 21:10 Dose: 1 mg Metoprolol Tartrate (Lopressor) 12.5 mg PEG BID [facility] Last Admin: 11/11/17 09:12 Dose: Not Given Multivitamins (Hexavitamin) 1 tab PEG DAILY [facility] Last Admin: 11/11/17 09:11 Dose: 1 tab Pantoprazole Sodium (Protonix Inj) 40 mg IVP DAILY [facility] Last Admin: 11/11/17 09:30 Dose: 40 mg Rosuvastatin Calcium (Crestor) 10 mg PO HS [facility] Last Admin: 11/10/17 21:54 Dose: 10 mg Saccharomyces Boulardii (Florastor) 250 mg PO BID [facility] Last Admin: 11/11/17 09:11 Dose: 250 mg Vitamin A (Vitamin A & D Oint Ud Foilpak) 0.5 ea TOP Q1H PRN PRN Reason: Dry skin Last Admin: 11/05/17 13:12 Dose: 0.5 ea - Labs Labs: 11/11/17 08:21 11/11/17 08:21 PT 13.4 SECONDS (9.7-12.2) H 10/14/17 16:30 INR 1.2 10/14/17 16:30 APTT 28 SECONDS (21-34) 10/14/17 16:30 Assessment and Plan (1) Hypotension (arterial) Status: Acute (2) Pneumonia Status: Acute (3) Cardiac arrest Status: Acute (4) History of DVT (deep vein thrombosis) Status: Acute (5) CKD (chronic kidney disease) Status: Chronic (6) CHF (congestive heart failure) Status: Acute
[2017-11-11] MEDS: Micafungin 100 MG in Sodium Chloride 0.9% 100 ML IV SCH (18:35)
--- NOTE | 2017-11-11 19:32 | CP.PCM.PN ---
Subjective - Date & Time of Evaluation Date of Evaluation: 11/11/17 Time of Evaluation: 08:25 - Subjective Subjective: Patient seen and evaluated Not in distress Offers no complaints Objective - Vital Signs/Intake and Output Vital Signs (last 24 hours): Temp Pulse Resp BP Pulse Ox 99.1 F 96 H 22 126/69 97 11/11/17 15:00 11/11/17 15:00 11/11/17 15:00 11/11/17 15:00 11/11/17 15:00 Intake and Output: 11/11/17 11/12/17 18:59 06:59 Intake Total 680 Output Total 100 Balance 580 - Medications Medications: Current Medications Ascorbic Acid (Vitamin C 500 Mg Tab) 500 mg PEG DAILY [facility] Last Admin: 11/11/17 09:11 Dose: 500 mg Aspirin (Aspirin Chewable) 81 mg PO DAILY [facility] Last Admin: 11/11/17 09:11 Dose: 81 mg Calcitriol (Rocaltrol) 0.25 mcg PEG DAILY [facility] Last Admin: 11/11/17 09:12 Dose: Not Given Calcium Acetate (Phoslo) 2,001 mg GT TIDCC [facility] Last Admin: 11/11/17 18:34 Dose: 2,001 mg Epoetin Chencho (Procrit) 10,000 unit IV MWF [facility] Last Admin: 11/11/17 11:17 Dose: 10,000 unit Micafungin Sodium 100 mg/ (Sodium Chloride) 100 mls @ 100 mls/hr IV Q24H [facility] Last Admin: 11/11/17 18:35 Dose: 100 mls/hr Meropenem 500 mg/ Sodium (Chloride) 100 mls @ 50 mls/hr IVPB Q8 [facility] Last Admin: 11/11/17 14:21 Dose: 50 mls/hr Insulin Aspart (Novolog) 0 unit SC Q6 [facility] PRN Reason: Protocol Last Admin: 11/11/17 14:16 Dose: Not Given Insulin Detemir (Levemir) 35 unit SC Q12 [facility] Last Admin: 11/11/17 09:32 Dose: 35 unit Loperamide HCl (Imodium) 1 mg PO Q4H PRN PRN Reason: Diarrhea Last Admin: 11/04/17 21:10 Dose: 1 mg Metoprolol Tartrate (Lopressor) 12.5 mg PEG BID [facility] Last Admin: 11/11/17 18:34 Dose: 12.5 mg Multivitamins (Hexavitamin) 1 tab PEG DAILY [facility] Last Admin: 11/11/17 09:11 Dose: 1 tab Pantoprazole Sodium (Protonix Inj) 40 mg IVP DAILY [facility] Last Admin: 11/11/17 09:30 Dose: 40 mg Rosuvastatin Calcium (Crestor) 10 mg PO HS [facility] Last Admin: 11/10/17 21:54 Dose: 10 mg Saccharomyces Boulardii (Florastor) 250 mg PO BID [facility] Last Admin: 11/11/17 18:34 Dose: 250 mg Vitamin A (Vitamin A & D Oint Ud Foilpak) 0.5 ea TOP Q1H PRN PRN Reason: Dry skin Last Admin: 11/05/17 13:12 Dose: 0.5 ea - Labs Labs: 11/11/17 08:21 11/11/17 08:21 PT 13.4 SECONDS (9.7-12.2) H 10/14/17 16:30 INR 1.2 10/14/17 16:30 APTT 28 SECONDS (21-34) 10/14/17 16:30
[2017-11-12] MEDS: (Novolog) Insulin Aspart, Recombinant 100 u/ml 10 ml vial SC SCH ×4 (00:19→18:40)
[2017-11-12] MEDS: Meropenem 500 MG in Sodium Chloride 0.9% 100 ML IVPB SCH ×3 (05:52→21:38)
--- NOTE | 2017-11-12 06:46 | CP.PCM.PN ---
<Darien De La Torre - Last Filed: 11/12/17 12:11> Subjective - Date & Time of Evaluation Date of Evaluation: 11/12/17 Time of Evaluation: 07:40 - Subjective Subjective: Medicine Note- Dr. Barth's service Patient was seen and examined at bedside. Patient appears comfortable and in no acute distress. Patient is non verbal and lethargic. Patient does not respond to commands. No events overnight, per nursing. Objective - Vital Signs/Intake and Output Vital Signs (last 24 hours): Temp Pulse Resp BP Pulse Ox 97.9 F 119 H 20 144/74 94 L 11/12/17 00:00 11/12/17 00:00 11/12/17 00:00 11/12/17 00:00 11/12/17 00:00 Intake and Output: 11/11/17 11/12/17 18:59 06:59 Intake Total 680 1360 Output Total 100 150 Balance 580 1210 - Medications Medications: Current Medications Ascorbic Acid (Vitamin C 500 Mg Tab) 500 mg PEG DAILY [facility] Last Admin: 11/11/17 09:11 Dose: 500 mg Aspirin (Aspirin Chewable) 81 mg PO DAILY [facility] Last Admin: 11/11/17 09:11 Dose: 81 mg Calcitriol (Rocaltrol) 0.25 mcg PEG DAILY [facility] Last Admin: 11/11/17 09:12 Dose: Not Given Calcium Acetate (Phoslo) 2,001 mg GT TIDCC [facility] Last Admin: 11/11/17 18:34 Dose: 2,001 mg Epoetin Asim (Procrit) 10,000 unit IV MWF [facility] Last Admin: 11/11/17 11:17 Dose: 10,000 unit Micafungin Sodium 100 mg/ (Sodium Chloride) 100 mls @ 100 mls/hr IV Q24H [facility] Last Admin: 11/11/17 18:35 Dose: 100 mls/hr Meropenem 500 mg/ Sodium (Chloride) 100 mls @ 50 mls/hr IVPB Q8 [facility] Last Admin: 11/12/17 05:52 Dose: 50 mls/hr Insulin Aspart (Novolog) 0 unit SC Q6 [facility] PRN Reason: Protocol Last Admin: 11/12/17 05:51 Dose: 2 unit Insulin Detemir (Levemir) 35 unit SC Q12 [facility] Last Admin: 11/11/17 21:51 Dose: 35 unit Loperamide HCl (Imodium) 1 mg PO Q4H PRN PRN Reason: Diarrhea Last Admin: 11/04/17 21:10 Dose: 1 mg Metoprolol Tartrate (Lopressor) 12.5 mg PEG BID [facility] Last Admin: 11/11/17 18:34 Dose: 12.5 mg Multivitamins (Hexavitamin) 1 tab PEG DAILY [facility] Last Admin: 11/11/17 09:11 Dose: 1 tab Pantoprazole Sodium (Protonix Inj) 40 mg IVP DAILY [facility] Last Admin: 11/11/17 09:30 Dose: 40 mg Rosuvastatin Calcium (Crestor) 10 mg PO HS [facility] Last Admin: 11/11/17 21:50 Dose: 10 mg Saccharomyces Boulardii (Florastor) 250 mg PO BID [facility] Last Admin: 11/11/17 18:34 Dose: 250 mg Vitamin A (Vitamin A & D Oint Ud Foilpak) 0.5 ea TOP Q1H PRN PRN Reason: Dry skin Last Admin: 11/05/17 13:12 Dose: 0.5 ea - Labs Labs: 11/11/17 08:21 11/11/17 08:21 PT 13.4 SECONDS (9.7-12.2) H 10/14/17 16:30 INR 1.2 10/14/17 16:30 APTT 28 SECONDS (21-34) 10/14/17 16:30 - Constitutional Appears: Non-toxic, No Acute Distress, Chronically Ill - Head Exam Head Exam: ATRAUMATIC, NORMAL INSPECTION, NORMOCEPHALIC - ENT Exam ENT Exam: Mucous Membranes Moist - Neck Exam Neck Exam: Normal Inspection - Respiratory Exam Respiratory Exam: Rhonchi, Wheezes - Cardiovascular Exam Cardiovascular Exam: REGULAR RHYTHM, +S1, +S2 - GI/Abdominal Exam GI & Abdominal Exam: Soft, Normal Bowel Sounds. absent: Tenderness, Diminished Bowel Sounds, Hernia, Hypoactive Bowel Sounds, Pulsatile Mass - Rectal Exam Additional comments: rectal tube in place - Extremities Exam Extremities Exam: Normal Capillary Refill - Neurological Exam Neurological Exam: absent: Alert, Awake, Oriented x3 - Psychiatric Exam Psychiatric exam: absent: Normal Affect, Normal Mood - Skin Skin Exam: Dry, Intact, Normal Color, Warm Assessment and Plan - Assessment and Plan (Free Text) Assessment: 77M with ARDS s/p cardiac arrest, with pulmonary edema and NSTEMI * Ipratropium 0.02% (atrovent) 0.5mg IH RQ6H * 10/24 CXR: questionable interval atelectasis or infiltrate in medial right base * 10/23 mid bibasilar atelectasis. questionable small left-sided effusion * CXR left lobe atelectasis v pna * 10/26 right midline removed, tip of midline sent for culture 10/26, new midline placed on left arm 10/26 * 10/[address] Lawrence: fungal infection in blood, lines should be changed. * 10/[address] Lawrence: fungal infection in blood, lines should be changed. * reach out to Mrs. Wolf, if family does want patient on dialysis: dialysis needs to be changed * f/u echo to rule out vegetations * 10/28: Family wants patient to receive dialysis; consulted surgery for permacath replacement. * Surgery consulted, Dr. Forbes * Patient received dialysis today; developed sinus tachycardia during; continue to monitor on telemetry. * 10/29 Digoxin 0.25 mg IV was given to patient for the sinus tachycardia. * ECHO: LV function markedly reduced, diffuse hypokinesis; septum is akinetic; LV EF 20%; Trace AR. * Continue mycamine 100mg POQD, merrem 500 POQD, flagy 500mg GT Q8 (discontinued ) DVT Left Axillary and Left Brachial Veins * Duplex scan LUE 11/09: acute thrombosis of left axillary and brachial veins with severe reduction of venous return * Anticoagulation contraindicated as patient had a recent bleed with a drop in Hgb due to new eliquis use * PICC access in left arm not possible due to LUE DVT and right arm with permacath thus no midline can be placed on either upper extremities Constipation, resolved * Dulcolax 10mg HI Once PRN 10/21, patient had a dark brown BM yesterday, none today per nursing staff * Patient is having diarrhea in the Flexseal. Cultures were taken, currently negative * GI Dr. Wills consulted: does not feel that it would be in the best interest of the patient at this time to do any invasive procedure or examination. Diarrhea * One dose of immodium given overnight Hypotensive, resolved * Metoprolol on hold (restarted) HTN * Better controlled recently; * 10/31 Lopressor 5mg once was given today for high blood pressure Leukocytosis * current cultures negative (blood, stool and wound) * 10/14 urine culture: yeast * 10/14 blood culture is positive for yeast * 10/26 WBC 25.5 * 10/27 WBC 17 * Saccharomyces boulardi (florastor) 250mg PO BID * Blood cx x1 from 10/24: positive for Reny Glabrata * Second blood cx showed no growth * As per ID, suggested replacing dialysis lines due to fungal infection * 10/26: catheter tip cx: no growth * Continue mycamine 100mg PO QD, Flagyl 500mg GT Q8m (discontinued), Merem 500mg IV Q8 Abnormal Stress test, history of AICD, hx CAD * ASA 81mg POQD * Rosuvastatin calcium 10mg PO QHS Atrial Flutter, resolved * Cardiology Consult (Dr. Cortés) * Aspirin 81mg PO daily * c/w Eliquis 2.5mg PO bid * Eliquis held d/t Hgb 6.6 10/24 Low hemoglobin * Epoeitin asim 57108 u IV M, W, F * 10/24: Eliquis held d/t Hgb 6.6; 2uPRBC administered after dialysis * Hgb 11.2 after 2uPRBC * 11/04 1 uPRBC Hypocalcemia * Calcium corrects w albumin * Calcitriol 0.25 mcg PEG daily UTI, yeast positive * 10/14 urine positive for yeast * Discontinued Diflucan 100mg/50cc NS @ 55cc/hr QD Unstageable Sacral Ulcer, Left Ear Auriclular ulcer, Right Heal Ulcer * Continue to monitor HTN, medications held until blood pressure is higher * Well-controlled * Midodrine (proamatine) * Metoprolol 25mg PEG BID BS Type DM 2 * Elevated over course * A1C: 8.4 * Levemir 35 units SC Q12 * ISS * Glucose accuchecks CKD with Dialysis * Dialysis MWF via permacath * Patient received dialysis today, 10/28. * During dialysis, patient developed sinus tachycardia. continue to monitor on telemetry Hyperphosphatemia patient is on Phoslo [address] Miranda - Elevated but down-trending Pseudohypercalcemia Ca 7.6 on AM labs - Corrected calcium 8.8 Prophylaxis * Pepcid 20mg POQD * Zofran 4mg IVP Q8H PRN Diet: tube feeds: Vital 1.2 initial rate 20cc/hr with goal rate 70cc/hr Patient is at goal rate Social Work Patient's new insurance does not accept LTAC. 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 Comfort measures in place. POLST in chart, signed DNR as of 1899 on 10/25/1710/25 Patient was made DNR by of Patient Disposition: Maryann, palliative care nurse spoke to 11/09 about hospice; not amenable to hospice for patient at this time. Maryann has called Ethics consult. Follow up recommendations. <Cullen Barth - Last Filed: 11/12/17 20:21> Objective - Vital Signs/Intake and Output Vital Signs (last 24 hours): Temp Pulse Resp BP Pulse Ox 98.8 F 113 H 20 141/60 94 L 11/12/17 15:00 11/12/17 15:00 11/12/17 15:00 11/12/17 15:00 11/12/17 15:00 Intake and Output: 11/12/17 11/13/17 18:59 06:59 Intake Total 680 Output Total 250 Balance 430 - Medications Medications: Current Medications Ascorbic Acid (Vitamin C 500 Mg Tab) 500 mg PEG DAILY [facility] Last Admin: 11/12/17 09:38 Dose: 500 mg Aspirin (Aspirin Chewable) 81 mg PO DAILY [facility] Last Admin: 11/12/17 09:33 Dose: 81 mg Calcitriol (Rocaltrol) 0.25 mcg PEG DAILY [facility] Last Admin: 11/12/17 09:33 Dose: 0.25 mcg Calcium Acetate (Phoslo) 2,001 mg GT TIDCC [facility] Last Admin: 11/12/17 18:39 Dose: 2,001 mg Epoetin Asim (Procrit) 10,000 unit IV MWF [facility] Last Admin: 11/11/17 11:17 Dose: 10,000 unit Micafungin Sodium 100 mg/ (Sodium Chloride) 100 mls @ 100 mls/hr IV Q24H [facility] Last Admin: 11/12/17 18:41 Dose: 100 mls/hr Meropenem 500 mg/ Sodium (Chloride) 100 mls @ 50 mls/hr IVPB Q8 [facility] Last Admin: 11/12/17 13:44 Dose: 50 mls/hr Insulin Aspart (Novolog) 0 unit SC Q6 [facility] PRN Reason: Protocol Last Admin: 11/12/17 18:40 Dose: 1 unit Insulin Detemir (Levemir) 35 unit SC Q12 [facility] Last Admin: 11/12/17 09:36 Dose: 35 unit Loperamide HCl (Imodium) 1 mg PO Q4H PRN PRN Reason: Diarrhea Last Admin: 11/04/17 21:10 Dose: 1 mg Metoprolol Tartrate (Lopressor) 12.5 mg PEG BID [facility] Last Admin: 11/12/17 18:40 Dose: 12.5 mg Multivitamins (Hexavitamin) 1 tab PEG DAILY [facility] Last Admin: 11/12/17 09:33 Dose: 1 tab Rosuvastatin Calcium (Crestor) 10 mg PO HS [facility] Last Admin: 11/11/17 21:50 Dose: 10 mg Saccharomyces Boulardii (Florastor) 250 mg PO BID [facility] Last Admin: 11/12/17 18:39 Dose: 250 mg Vitamin A (Vitamin A & D Oint Ud Foilpak) 0.5 ea TOP Q1H PRN PRN Reason: Dry skin Last Admin: 11/12/17 09:34 Dose: 0.5 ea - Labs Labs: 11/12/17 06:52 11/12/17 06:52 PT 13.4 SECONDS (9.7-12.2) H 10/14/17 16:30 INR 1.2 10/14/17 16:30 APTT 28 SECONDS (21-34) 10/14/17 16:30 Attending/Attestation - Attestation I have personally seen and examined this patient.: Yes I have fully participated in the care of the patient.: Yes I have reviewed all pertinent clinical information, including history, physical exam and plan: Yes Notes (Text): 11/12/17 20:19 Patient was seen and examined at 10:15 AM 11/12/17 355 A Exam, assessment and plan were thoroughly gone over with the resident Also on exam: Sacral ulcer extending to involve the bilateral ischial tuberosities: unstageable Right Heal ulcer: unstageable Assessment/Plans 1). Hx Acute Respiratory Failure/ARDS/Cadiac Arrest/NSTEMI * Dr Cortés (cardiology) on the case-->help appreciated * Dr. Mena (pulmonary) on the case-->help appreciated * Code Blue on 08/10: asystole, cardiopulmonary resuscitative measures initiated , requiring 3 epis, bicarbonate, ROSC achieved and intubated and brought to the ICU. Patient has had multiple for hypotension. 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 * Atrovent 0.5mg Inhaled RQ6H * Aspirin 81mg PO daily * Lopressor 12.5mg PO BID with holding parameters * Midodrine 10mg PO TID * Crestor 10mg PO qHS 2). Hx Abnormal Stress Test/AICD/CAD * Dr Cortés (cardiology) on the case-->help appreciated * Dr. Mena (pulmonary) on the case-->help appreciated * Code Blue on 08/10: asystole, cardiopulmonary resuscitative measures initiated , requiring 3 epis, bicarbonate, ROSC achieved and intubated and brought to the ICU. Patient has had multiple for hypotension. 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 * Aspirin 81mg PO daily * Lopressor 12.5mg PO BID with holding parameters * Midodrine 10mg PO TID * Crestor 10mg PO qHS 3). Hx Atrial Flutter: * stopped Eliquis 10/24/17 secondary significant drop in HgB. Heart Rate is elevated. Ordered for Lopressor 5mg iVX1 on 10/31 * Lopressor 12.5mg PO BID with holding parameters 4). 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 Leukocytosis * Infectious Disease (Dr. Lawrence) on the case-->help appreciated * Blood Culture 10/22/17 is finalized as negative. * Sputum culture 10/14/17 is negative. * Stool cultures 10/20/17 are negative. 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 * Right Arm Midline Tip 10/06/17 culture is negative and removed. Midline Tip Culture 10/26/17 is negative. * Blood Cultures 10/28/17 are negative to date. * Iv ABx: Cefepime (10/12/17 through 10/24/17), Aztreonam (10/13/17 through )), Diflucan (10/14/17 through 10/26/17). * Currently on Meropenem 500 mg IV Q8H (10/28/17), Micofungin 100 mg IV Q24H () Flagyl (10/16/17). * Dr. Lazar spoke with 11/02, she does not want Permacath replaced given cardiac risk for operation/anesthesia. * ID Recommended for permcath and sacral debrdiement by ID, has refused 11/02, and will have to revisit this conversation given elevation in white count 6). Hx Pneumonia, Fungemia * ID on the case-->help appreciated * Currently on Meropenem 500 mg IV Q8H (10/28/17-present ), Micofungin 100 mg IV Q24H (10/27/17-present) Flagyl 500 GT Q8H (10/16/17-present). * ID recommends Permcath to be exchanged out and sacral debridement; however, has refused, Dr. Lazar had conversation on Tue, 11/02 given cardiac risk for invasive operation. 7). Hx HTN: * Lopressor 12.5mg PEG BID with holding parameters 8). Hx CKD on HD . * Family would like to continue HD through current Permacath and declined surgical intervention to change catheter (due to the Blood Culture 10/24/17 being positive for Reny glabrata) as recommended by Vascular Surgery and Infectious Disease. * Dr. Lazar discussed with at bedside 11/02, she continues to deny the exchange secondary to cardiac risk. * Phoslo 1334mg PO TIDCC * Epocrit 10,000 unit IV MWF 9). Hx DM: * Levemir 35 units [id number] * monitor [id number] * HgbA1c 8.4 10). Hx HLD * Crestor 10mg PO qHS 11). Hx Anemia: * Eliquis stopped 10/24/17 and was transfused 2 units PRBCs. * CBC morning 11/28/17 dropped from 11.2 post trasfusion 10/24/17 to 10.2 morning 10/25/17. * Stool Occult is Positive and GI Dr. Dsouza was reconsulted however no further workup recommended in light of patient current status. * Procrit 10,000 units M-W- * s/p1 unit of PRBC 11/04 given declining H/H * HgB/Hct are currently stable 12). Hx DVT * Eliquis stopped 10/24/17 given positive bloody stool * Repeat dopplers LE 08/09/17 are negative for DVT * Left UE Doppler 11/08/17 was POSITIVE for DVTs in Left Brachial and Left Axillary Veins: Can NOT anticoagulate due to history of bleeding (requiring blood transfusion) with anticoagulation 13). Hx UTI: * Yeast on culture 10/24/17. He is currently on Micofungin 100 mg IV Q24H. He may be colonized with this. * ID Recommended for permcath and sacral debrdiement by ID, has refused 11/02 will to revisit this conversation given elevation in white count. 14). Hx Alzheimer's Dementia * CT head w/o contrast (08/10/17):acute os subacute lacune infarct is not excluded in the left basal ganglia inferiorly with definitive chronic lacune identified in the right basal ganglia superiorly. No acute or subacute lobar brain infarction is appreciable by standard CT criteria. Mild age-related neuro * CT Head w/o contrast (10/14/17): no intracranial mass, hemorrhage, or evidence of acute infarct. 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 Old right external capsule ischemic change. Age related atrophy and chronic microvascular ischemic change * Note: patient does listen to his at bedside sometimes and follows simple commands but not always 15). Hx Sacral Ulcer: * General surgery (Dr. Forbes) on board-->help appreciated * Bone Scan performed 09/17/17 to check for Osteomyelitis at the Sacrum: negative for osteomyelitis * Currently on MediHoney daily, family has declined further debridement by surgery. Wound care on board * Recommended for permcath and sacral debrdiement by ID, has refused 11/02 16). Hx Right Heal Ulcer * Podiatry (Dr. Lundberg) on board-->help appreciated * Prevalon boots * Improved on exam and area of necrosis/unstageable area is decreased. Santyl and Optifoam daily. Pravolon boots 17). Hx Elevated LFTs * Normalized; patient is on statin and Micafungin 18). Diarrhea: * On Rectal Seal and producing dark brown/black stools that are watery. Stool Studies 10/20/17 are negative * On loperamide PRN 19). Hx Hyponatremia: * Normalized 20). Hx PEG Tube: * Vital 1.5 at 50 ml/hour 21). Hx Hypocalcemia: * Calcitriol 22). Prophylactic Measures: * Vitamin C, Dulcolax PRN, Pepcid, MVI, Zofran PRN, Florastor * Started on dialysis 08/15/17 * s/p Right Chest Permcath 08/22/17--->Recommended by ID to exchange out but has refused. Will need to revisit given elevation in WBC * S/P Tracheostomy 08/22/17 * S/P Peg tube placement 08/25/17 * S/p insertion of right posterior chest tube 08/19-->removed 08/24/17 * Passy Flex Trach placed 09/15/17 * s/p new mid line (left upper extremity) 10/26/17 prior mid line removed and tip sent for culture and was negative. Midline left arm was removed 11/06/17 due to bleeding from site. NO Midline/PICC can be placed on Right UE due to the Right [id number] and can not be placed on the Left UE due to the Left Brachia/ Axillary DVTs * (Jovita Serrano): * Patient is now: DNR Disposition: Recommended by ID to get sacral debridement and permacath exchange out. Dr. Lazar spoke with on Tuesday, 11/02 but had refused. 11/08/17: Extensive conversation with today at the time of exam. 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 If debridement did take place then there would be no guarantees that this would improve considering his multiple comorbidities and that this will also likely be extremely painful to patient. Also that if these areas were not debrided, then we ran the risk for sepsis as well osteomyelitis. So unfortunately this placed us between a rock and a hard place concerning this issue. Considering this, I asked her to consider Hospice and explained to her that this would involve discontinuing HD, antibiotics and would involve making him as comfortable as possible. I have reached out to Palliative Care Nurse Domitila and explained to that Nurse Ramesh will speak with her 11/09/17. also asked about the possibility of spinal anesthesia for the debridement and I told her that I would check with the surgery team but also reminded her of the original concerns about patient pain after the procedure and likelihood of lack of improvement considering the multiple comorbidities. 11/09/17: Nurse Ramesh spoke with via phone (concerning what I discussed with her in person on 11/08/17) and will meet with her on 11/10/17. 11/10/17: Nurse Ramesh met with . [place] that may be undocumented and relies on patient's benefits for financial source. Considering my conversation with patient on 11/08/17, I have ordered [employer] consultation for further recommendations. Nurse Ramesh will speak with [employer] Dr. eRnan Bowles whose help will be appreciated concerning this issue. 11/11/17: Awaiting [employer] evaluation. 11/12/17: Awaiting [employer] evaluation. Cullen Barth D.O.
[2017-11-12 07:18] LABS: BASO # 0.1 K/uL (0.0-0.2); BASO % 0.5 % (0.0-2.0); EOS # 0.1 K/uL (0.0-0.7); EOS % 0.9 % (0.0-4.0); HEMATOCRIT 31.5 % (35.0-51.0); LYMPH # 1.8 K/uL (1.0-4.3); LYMPH % 11.1 % (20.0-40.0); MEAN CELL VOLUME 94.4 fL (80.0-94.0); MEAN CORPUSCULAR HEMOGLOBIN 30.3 pg (27.0-31.0); MEAN CORPUSCULAR HGB CONC 32.1 g/dL (33.0-37.0); MEAN PLATELET VOLUME 7.1 fL (7.2-11.7); MONO # 0.9 K/uL (0.0-0.8); MONO % 5.5 % (0.0-10.0); NRBC % 0.2 % (0.0-2.0); RED CELL DISTRIBUTION WIDTH 22.4 % (11.5-14.5); WHITE BLOOD COUNT 16.2 K/uL (4.8-10.8)
[2017-11-12 07:39] LABS: ALB/GLOB RATIO 0.6 (1.0-2.1); BILIRUBIN,TOTAL 0.3 mg/dL (0.2-1.3); CALCIUM 7.4 mg/dl (8.6-10.4); POTASSIUM 4.6 mmol/L (3.6-5.2); TOTAL PROTEIN 6.6 g/dL (6.3-8.3)
[2017-11-12] MEDS: Multiple Vitamins Tab PEG SCH (09:33)
[2017-11-12] MEDS: Vitamins A & D Oint UD Foilpak TOP PRN (09:34)
[2017-11-12] MEDS: Saccharomyces Boulardi 250 mg Cap PO SCH ×2 (09:34→18:39)
[2017-11-12] MEDS: Insulin Detemir 100 units/ml Vial (Levemir) SC SCH ×2 (09:36→21:40)
--- NOTE | 2017-11-12 09:37 | CP.PCM.PN ---
Subjective - Date & Time of Evaluation Date of Evaluation: 11/12/17 Time of Evaluation: 09:35 - Subjective Subjective: bp stable afebrile chems ok comfortable on trach bcollar not answering questions or following commands ROS see above,not obtainable.non verbal Objective - Vital Signs/Intake and Output Vital Signs (last 24 hours): Temp Pulse Resp BP Pulse Ox 97.9 F 119 H 20 144/74 94 L 11/12/17 00:00 11/12/17 00:00 11/12/17 00:00 11/12/17 00:00 11/12/17 00:00 Intake and Output: 11/12/17 11/12/17 06:59 18:59 Intake Total 1360 Output Total 150 Balance 1210 - Medications Medications: Current Medications Ascorbic Acid (Vitamin C 500 Mg Tab) 500 mg PEG DAILY [facility] Last Admin: 11/11/17 09:11 Dose: 500 mg Aspirin (Aspirin Chewable) 81 mg PO DAILY [facility] Last Admin: 11/11/17 09:11 Dose: 81 mg Calcitriol (Rocaltrol) 0.25 mcg PEG DAILY [facility] Last Admin: 11/11/17 09:12 Dose: Not Given Calcium Acetate (Phoslo) 2,001 mg GT TIDCC [facility] Last Admin: 11/12/17 08:36 Dose: 2,001 mg Epoetin [place] (Procrit) 10,000 unit IV MWF [facility] Last Admin: 11/11/17 11:17 Dose: 10,000 unit Micafungin Sodium 100 mg/ (Sodium Chloride) 100 mls @ 100 mls/hr IV Q24H [facility] Last Admin: 11/11/17 18:35 Dose: 100 mls/hr Meropenem 500 mg/ Sodium (Chloride) 100 mls @ 50 mls/hr IVPB Q8 [facility] Last Admin: 11/12/17 05:52 Dose: 50 mls/hr Insulin Aspart (Novolog) 0 unit SC Q6 [facility] PRN Reason: Protocol Last Admin: 11/12/17 05:51 Dose: 2 unit Insulin Detemir (Levemir) 35 unit SC Q12 [facility] Last Admin: 11/11/17 21:51 Dose: 35 unit Loperamide HCl (Imodium) 1 mg PO Q4H PRN PRN Reason: Diarrhea Last Admin: 11/04/17 21:10 Dose: 1 mg Metoprolol Tartrate (Lopressor) 12.5 mg PEG BID [facility] Last Admin: 11/11/17 18:34 Dose: 12.5 mg Multivitamins (Hexavitamin) 1 tab PEG DAILY [facility] Last Admin: 11/11/17 09:11 Dose: 1 tab Pantoprazole Sodium (Protonix Inj) 40 mg IVP DAILY [facility] Last Admin: 11/11/17 09:30 Dose: 40 mg Rosuvastatin Calcium (Crestor) 10 mg PO HS [facility] Last Admin: 11/11/17 21:50 Dose: 10 mg Saccharomyces Boulardii (Florastor) 250 mg PO BID [facility] Last Admin: 11/11/17 18:34 Dose: 250 mg Vitamin A (Vitamin A & D Oint Ud Foilpak) 0.5 ea TOP Q1H PRN PRN Reason: Dry skin Last Admin: 11/05/17 13:12 Dose: 0.5 ea - Labs Labs: 11/12/17 06:52 11/12/17 06:52 PT 13.4 SECONDS (9.7-12.2) H 10/14/17 16:30 INR 1.2 10/14/17 16:30 APTT 28 SECONDS (21-34) 10/14/17 16:30 - Constitutional Appears: No Acute Distress - Respiratory Exam Respiratory Exam: Rhonchi. absent: Accessory Muscle Use - Cardiovascular Exam Cardiovascular Exam: REGULAR RHYTHM - GI/Abdominal Exam GI & Abdominal Exam: Distended, Soft - Extremities Exam Additional comments: legs in boots - Neurological Exam Neurological Exam: absent: Alert - Skin Skin Exam: Dry Assessment and Plan (1) Acute on chronic renal failure Assessment & Plan: continue supportive care tube feedings in progress next dialysis 11/14 Status: Resolved (2) CHF (congestive heart failure) Status: Acute (3) Cardiorenal disease Status: Acute (4) Type 2 diabetes mellitus with diabetic nephropathy Status: Acute (5) CAD (coronary artery disease) Status: Chronic (6) HTN (hypertension) Status: Chronic
[2017-11-12] MEDS: Micafungin 100 MG in Sodium Chloride 0.9% 100 ML IV SCH (18:41)
[2017-11-13] MEDS: Meropenem 500 MG in Sodium Chloride 0.9% 100 ML IVPB SCH ×3 (05:30→21:29)
[2017-11-13] MEDS: (Novolog) Insulin Aspart, Recombinant 100 u/ml 10 ml vial SC SCH ×4 (06:04→17:18)
[2017-11-13 09:05] LABS: BASO # 0.1 K/uL (0.0-0.2); BASO % 0.6 % (0.0-2.0); EOS # 0.2 K/uL (0.0-0.7); EOS % 0.9 % (0.0-4.0); LYMPH # 2.1 K/uL (1.0-4.3); LYMPH % 11.5 % (20.0-40.0); MEAN CELL VOLUME 93.1 fL (80.0-94.0); MEAN CORPUSCULAR HEMOGLOBIN 29.2 pg (27.0-31.0); MEAN CORPUSCULAR HGB CONC 31.3 g/dL (33.0-37.0); MEAN PLATELET VOLUME 7.4 fL (7.2-11.7); MONO % 5.3 % (0.0-10.0); NRBC % 0.1 % (0.0-2.0); RED CELL DISTRIBUTION WIDTH 21.6 % (11.5-14.5); WHITE BLOOD COUNT 18.2 K/uL (4.8-10.8)
[2017-11-13 09:12] LABS: ALB/GLOB RATIO 0.8 (1.0-2.1); BILIRUBIN,TOTAL 0.3 mg/dL (0.2-1.3); CALCIUM 7.8 mg/dl (8.6-10.4); POTASSIUM 5.1 mmol/L (3.6-5.2); TOTAL PROTEIN 5.6 g/dL (6.3-8.3)
[2017-11-13] MEDS: Multiple Vitamins Tab PEG SCH (09:33)
[2017-11-13] MEDS: Saccharomyces Boulardi 250 mg Cap PO SCH ×2 (09:34→16:59)
[2017-11-13] MEDS: Insulin Detemir 100 units/ml Vial (Levemir) SC SCH ×2 (09:38→21:30)
--- NOTE | 2017-11-13 09:44 | CP.PCM.PN ---
<Darien De La Torre - Last Filed: 11/13/17 09:45> Subjective - Date & Time of Evaluation Date of Evaluation: 11/13/17 Time of Evaluation: 08:40 - Subjective Subjective: Medicine Note- Hospitalist Service Patient was seen and examined at bedside. Patient is unable to communicate due to current medical state. He is awake, but not alert nor is he responsive to commands. No events overnight, as per nursing. Objective - Vital Signs/Intake and Output Vital Signs (last 24 hours): Temp Pulse Resp BP Pulse Ox 98.8 F 110 H 20 133/83 96 11/13/17 00:00 11/13/17 00:00 11/13/17 00:00 11/13/17 00:00 11/13/17 00:00 Intake and Output: 11/13/17 11/13/17 06:59 18:59 Intake Total 880 Output Total 250 Balance 630 - Medications Medications: Current Medications Ascorbic Acid (Vitamin C 500 Mg Tab) 500 mg PEG DAILY [facility] Last Admin: 11/13/17 09:33 Dose: 500 mg Aspirin (Aspirin Chewable) 81 mg PO DAILY [facility] Last Admin: 11/13/17 09:33 Dose: 81 mg Calcitriol (Rocaltrol) 0.25 mcg PEG DAILY [facility] Last Admin: 11/13/17 09:33 Dose: 0.25 mcg Calcium Acetate (Phoslo) 2,001 mg GT TIDCC [facility] Last Admin: 11/13/17 08:30 Dose: 2,001 mg Epoetin Asim (Procrit) 10,000 unit IV MWF [facility] Last Admin: 11/11/17 11:17 Dose: 10,000 unit Micafungin Sodium 100 mg/ (Sodium Chloride) 100 mls @ 100 mls/hr IV Q24H [facility] Last Admin: 11/12/17 18:41 Dose: 100 mls/hr Meropenem 500 mg/ Sodium (Chloride) 100 mls @ 50 mls/hr IVPB Q8 [facility] Last Admin: 11/13/17 05:30 Dose: 50 mls/hr Insulin Aspart (Novolog) 0 unit SC Q6 [facility] PRN Reason: Protocol Last Admin: 11/13/17 06:04 Dose: 2 unit Insulin Detemir (Levemir) 35 unit SC Q12 [facility] Last Admin: 11/13/17 09:38 Dose: 35 unit Loperamide HCl (Imodium) 1 mg PO Q4H PRN PRN Reason: Diarrhea Last Admin: 11/04/17 21:10 Dose: 1 mg Metoprolol Tartrate (Lopressor) 12.5 mg PEG BID [facility] Last Admin: 11/13/17 09:36 Dose: 12.5 mg Multivitamins (Hexavitamin) 1 tab PEG DAILY [facility] Last Admin: 11/13/17 09:33 Dose: 1 tab Rosuvastatin Calcium (Crestor) 10 mg PO HS [facility] Last Admin: 11/12/17 21:38 Dose: 10 mg Saccharomyces Boulardii (Florastor) 250 mg PO BID [facility] Last Admin: 11/13/17 09:34 Dose: 250 mg Vitamin A (Vitamin A & D Oint Ud Foilpak) 0.5 ea TOP Q1H PRN PRN Reason: Dry skin Last Admin: 11/12/17 09:34 Dose: 0.5 ea - Labs Labs: 11/13/17 08:47 11/13/17 08:47 PT 13.4 SECONDS (9.7-12.2) H 10/14/17 16:30 INR 1.2 10/14/17 16:30 APTT 28 SECONDS (21-34) 10/14/17 16:30 - Constitutional Appears: Cachectic, Chronically Ill - Head Exam Head Exam: ATRAUMATIC, NORMAL INSPECTION, NORMOCEPHALIC - Eye Exam Pupil Exam: NORMAL ACCOMODATION - ENT Exam ENT Exam: Mucous Membranes Moist Additional comments: trach collar in place - Respiratory Exam Respiratory Exam: Rales, Rhonchi, NORMAL BREATHING PATTERN - Cardiovascular Exam Cardiovascular Exam: REGULAR RHYTHM, +S1, +S2 - GI/Abdominal Exam GI & Abdominal Exam: Soft, Normal Bowel Sounds. absent: Tenderness, Diminished Bowel Sounds, Hernia, Hypoactive Bowel Sounds - Rectal Exam Additional comments: rectal tube in place - Extremities Exam Extremities Exam: Normal Capillary Refill Additional comments: left upper extremity swelling - Neurological Exam Neurological Exam: absent: Alert, Awake, Oriented x3 - Skin Skin Exam: Dry, Intact, Normal Color, Warm Assessment and Plan - Assessment and Plan (Free Text) Assessment: 77M with ARDS s/p cardiac arrest, with pulmonary edema and NSTEMI * Ipratropium 0.02% (atrovent) 0.5mg IH RQ6H * 10/24 CXR: questionable interval atelectasis or infiltrate in medial right base * 10/23 mid bibasilar atelectasis. questionable small left-sided effusion * CXR left lobe atelectasis v pna * 10/26 right midline removed, tip of midline sent for culture 10/26, new midline placed on left arm 10/26 * 10/[address] Lawrence: fungal infection in blood, lines should be changed. * 10/[address] Lawrence: fungal infection in blood, lines should be changed. * reach out to Mrs. Wolf, if family does want patient on dialysis: dialysis needs to be changed * f/u echo to rule out vegetations * 10/28: Family wants patient to receive dialysis; consulted surgery for permacath replacement. * Surgery consulted, Dr. Forbes * Patient received dialysis today; developed sinus tachycardia during; continue to monitor on telemetry. * 10/29 Digoxin 0.25 mg IV was given to patient for the sinus tachycardia. * ECHO: LV function markedly reduced, diffuse hypokinesis; septum is akinetic; LV EF 20%; Trace AR. * Continue mycamine 100mg POQD, merrem 500 POQD, flagy 500mg GT Q8 (discontinued ) DVT Left Axillary and Left Brachial Veins * Duplex scan LUE 11/09: acute thrombosis of left axillary and brachial veins with severe reduction of venous return * Anticoagulation contraindicated as patient had a recent bleed with a drop in Hgb due to new eliquis use * PICC access in left arm not possible due to LUE DVT and right arm with permacath thus no midline can be placed on either upper extremities Constipation, resolved * Dulcolax 10mg NH Once PRN 10/21, patient had a dark brown BM yesterday, none today per nursing staff * Patient is having diarrhea in the Flexseal. Cultures were taken, currently negative * GI Dr. Wills consulted: does not feel that it would be in the best interest of the patient at this time to do any invasive procedure or examination. Diarrhea * One dose of immodium given overnight Hypotensive, resolved * Metoprolol on hold (restarted) HTN * Better controlled recently; * 10/31 Lopressor 5mg once was given today for high blood pressure Leukocytosis * current cultures negative (blood, stool and wound) * 10/14 urine culture: yeast * 10/14 blood culture is positive for yeast * 10/26 WBC 25.5 * 10/27 WBC 17 * Saccharomyces boulardi (florastor) 250mg PO BID * Blood cx x1 from 10/24: positive for Reny Glabrata * Second blood cx showed no growth * As per ID, suggested replacing dialysis lines due to fungal infection * 10/26: catheter tip cx: no growth * Continue mycamine 100mg PO QD, Flagyl 500mg GT Q8m (discontinued), Merem 500mg IV Q8 Abnormal Stress test, history of AICD, hx CAD * ASA 81mg POQD * Rosuvastatin calcium 10mg PO QHS Atrial Flutter, resolved * Cardiology Consult (Dr. Cortés) * Aspirin 81mg PO daily * c/w Eliquis 2.5mg PO bid * Eliquis held d/t Hgb 6.6 10/24 Low hemoglobin * Epoeitin asim 79848 u IV M, W, F * 10/24: Eliquis held d/t Hgb 6.6; 2uPRBC administered after dialysis * Hgb 11.2 after 2uPRBC * 11/04 1 uPRBC Hypocalcemia * Calcium corrects w albumin * Calcitriol 0.25 mcg PEG daily UTI, yeast positive * 10/14 urine positive for yeast * Discontinued Diflucan 100mg/50cc NS @ 55cc/hr QD Unstageable Sacral Ulcer, Left Ear Auriclular ulcer, Right Heal Ulcer * Continue to monitor HTN, medications held until blood pressure is higher * Well-controlled * Midodrine (proamatine) * Metoprolol 25mg PEG BID BS Type DM 2 * Elevated over course * A1C: 8.4 * Levemir 35 units SC Q12 * ISS * Glucose accuchecks CKD with Dialysis * Dialysis MWF via permacath * Patient received dialysis today, 10/28. * During dialysis, patient developed sinus tachycardia. continue to monitor on telemetry Hyperphosphatemia patient is on Phoslo [address] Miranda - Elevated but down-trending Pseudohypercalcemia Ca 7.6 on AM labs - Corrected calcium 8.8 Prophylaxis * Pepcid 20mg POQD * Zofran 4mg IVP Q8H PRN Diet: tube feeds: Vital 1.2 initial rate 20cc/hr with goal rate 70cc/hr Patient is at goal rate Social Work Patient's new insurance does not accept LTAC. New insurance starts October 28 Currently waiting for [facility] to accept the patient when new insurance starts 10/28/17 salvage worker to provide letter to have daughter in [place] get a visa to come to the [place] to see her father. Comfort measures in place. POLST in chart, signed DNR as of 190 on 10/25/1710/25 Patient was made DNR by of Patient Disposition: Maryann, palliative care nurse spoke to 11/09 about hospice; not amenable to hospice for patient at this time. Maryann has called Ethics consult. Follow up recommendations. <Cullen Barth - Last Filed: 11/13/17 18:19> Objective - Vital Signs/Intake and Output Vital Signs (last 24 hours): Temp Pulse Resp BP Pulse Ox 98.8 F 104 H 20 151/76 H 97 11/13/17 15:00 11/13/17 15:00 11/13/17 15:00 11/13/17 15:00 11/13/17 15:00 Intake and Output: 11/13/17 11/13/17 06:59 18:59 Intake Total 880 680 Output Total 250 100 Balance 630 580 - Medications Medications: Current Medications Ascorbic Acid (Vitamin C 500 Mg Tab) 500 mg PEG DAILY [facility] Last Admin: 11/13/17 09:33 Dose: 500 mg Aspirin (Aspirin Chewable) 81 mg PO DAILY [facility] Last Admin: 11/13/17 09:33 Dose: 81 mg Calcitriol (Rocaltrol) 0.25 mcg PEG DAILY [facility] Last Admin: 11/13/17 09:33 Dose: 0.25 mcg Calcium Acetate (Phoslo) 2,001 mg GT TIDCC [facility] Last Admin: 11/13/17 16:59 Dose: 2,001 mg Epoetin Asim (Procrit) 10,000 unit IV MWF [facility] Last Admin: 11/11/17 11:17 Dose: 10,000 unit Micafungin Sodium 100 mg/ (Sodium Chloride) 100 mls @ 100 mls/hr IV Q24H [facility] Last Admin: 11/13/17 17:32 Dose: 100 mls/hr Meropenem 500 mg/ Sodium (Chloride) 100 mls @ 50 mls/hr IVPB Q8 [facility] Last Admin: 11/13/17 13:23 Dose: 50 mls/hr Insulin Aspart (Novolog) 0 unit SC Q6 [facility] PRN Reason: Protocol Last Admin: 11/13/17 17:18 Dose: 2 unit Insulin Detemir (Levemir) 35 unit SC Q12 [facility] Last Admin: 11/13/17 09:38 Dose: 35 unit Loperamide HCl (Imodium) 1 mg PO Q4H PRN PRN Reason: Diarrhea Last Admin: 11/04/17 21:10 Dose: 1 mg Metoprolol Tartrate (Lopressor) 12.5 mg PEG BID [facility] Last Admin: 11/13/17 16:59 Dose: 12.5 mg Multivitamins (Hexavitamin) 1 tab PEG DAILY [facility] Last Admin: 11/13/17 09:33 Dose: 1 tab Rosuvastatin Calcium (Crestor) 10 mg PO HS [facility] Last Admin: 11/12/17 21:38 Dose: 10 mg Saccharomyces Boulardii (Florastor) 250 mg PO BID [facility] Last Admin: 11/13/17 16:59 Dose: 250 mg Vitamin A (Vitamin A & D Oint Ud Foilpak) 0.5 ea TOP Q1H PRN PRN Reason: Dry skin Last Admin: 11/12/17 09:34 Dose: 0.5 ea - Labs Labs: 11/13/17 08:47 11/13/17 08:47 PT 13.4 SECONDS (9.7-12.2) H 10/14/17 16:30 INR 1.2 10/14/17 16:30 APTT 28 SECONDS (21-34) 10/14/17 16:30 Attending/Attestation - Attestation I have personally seen and examined this patient.: Yes I have fully participated in the care of the patient.: Yes I have reviewed all pertinent clinical information, including history, physical exam and plan: Yes Notes (Text): 11/13/17 18:15 Patient was seen and examined at 3:30 PM 11/13/17 355 A Exam, assessment and plan were thoroughly gone over with the resident Also on exam: Sacral ulcer extending to involve the bilateral ischial tuberosities: unstageable Right Heal ulcer: unstageable Assessment/Plans 1). Hx Acute Respiratory Failure/ARDS/Cadiac Arrest/NSTEMI * Dr Cortés (cardiology) on the case-->help appreciated * Dr. Mena (pulmonary) on the case-->help appreciated * Code Blue on 08/10: asystole, cardiopulmonary resuscitative measures initiated , requiring 3 epis, bicarbonate, ROSC achieved and intubated and brought to the ICU. Patient has had multiple for hypotension. Latest BLOOD COORDINATOR was on 10/14; stable awaiting for tele bed when available. * Atrovent 0.5mg Inhaled RQ6H * Aspirin 81mg PO daily * Lopressor 12.5mg PO BID with holding parameters * Midodrine 10mg PO TID * Crestor 10mg PO qHS 2). Hx Abnormal Stress Test/AICD/CAD * Dr Cortés (cardiology) on the case-->help appreciated * Dr. Mena (pulmonary) on the case-->help appreciated * Code Blue on 08/10: asystole, cardiopulmonary resuscitative measures initiated , requiring 3 epis, bicarbonate, ROSC achieved and intubated and brought to the ICU. Patient has had multiple for hypotension. Latest BLOOD COORDINATOR was on 10/14/17 * Aspirin 81mg PO daily * Lopressor 12.5mg PO BID with holding parameters * Midodrine 10mg PO TID * Crestor 10mg PO qHS 3). Hx Atrial Flutter: * stopped Eliquis 10/24/17 secondary significant drop in HgB. Heart Rate is elevated. Ordered for Lopressor 5mg iVX1 on 10/31 * Lopressor 12.5mg PO BID with holding parameters 4). 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 Leukocytosis * Infectious Disease (Dr. Lawrence) on the case-->help appreciated * Blood Culture 10/22/17 is finalized as negative. * Sputum culture 10/14/17 is negative. * Stool cultures 10/20/17 are negative. 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 * Right Arm Midline Tip 10/06/17 culture is negative and removed. Midline Tip Culture 10/26/17 is negative. * Blood Cultures 10/28/17 are negative to date. * Iv ABx: Cefepime (10/12/17 through 10/24/17), Aztreonam (10/13/17 through )), Diflucan (10/14/17 through 10/26/17). * Currently on Meropenem 500 mg IV Q8H (10/28/17), Micofungin 100 mg IV Q24H () * Dr. Lazar spoke with 11/02, she does not want Permacath replaced given cardiac risk for operation/anesthesia. * ID Recommended for permcath and sacral debrdiement by ID, has refused 11/02, and will have to revisit this conversation given elevation in white count 6). Hx Pneumonia, Fungemia * ID on the case-->help appreciated * Currently on Meropenem 500 mg IV Q8H (10/28/17-present ), Micofungin 100 mg IV Q24H (10/27/17-present) * ID recommends Permcath to be exchanged out and sacral debridement; however, has refused, Dr. Lazar had conversation on Tue, 11/02 given cardiac risk for invasive operation. 7). Hx HTN: * Lopressor 12.5mg PEG BID with holding parameters 8). Hx CKD on HD . * Family would like to continue HD through current Permacath and declined surgical intervention to change catheter (due to the Blood Culture 10/24/17 being positive for Reny glabrata) as recommended by Vascular Surgery and Infectious Disease. * Dr. Lazar discussed with at bedside 11/02, she continues to deny the exchange secondary to cardiac risk. * Phoslo 1334mg PO TIDCC * Epocrit 10,000 unit IV MWF 9). Hx DM: * Levemir 35 units [id number] * monitor [id number] * HgbA1c 8.4 10). Hx HLD * Crestor 10mg PO qHS 11). Hx Anemia: * Eliquis stopped 10/24/17 and was transfused 2 units PRBCs. * CBC morning 10/25/17 dropped from 11.2 post trasfusion 10/24/17 to 10.2 morning 10/25/17. * Stool Occult is Positive and GI Dr. Dsouza was reconsulted however no further workup recommended in light of patient current status. * Procrit 10,000 units -- * s/p1 unit of PRBC 11/04 given declining H/H * HgB/Hct are currently stable 12). Hx DVT * Eliquis stopped 10/24/17 given positive bloody stool * Repeat dopplers LE 08/09/17 are negative for DVT * Left UE Doppler 11/08/17 was POSITIVE for DVTs in Left Brachial and Left Axillary Veins: Can NOT anticoagulate due to history of bleeding (requiring blood transfusion) with anticoagulation 13). Hx UTI: * Yeast on culture 10/24/17. He is currently on Micofungin 100 mg IV Q24H. He may be colonized with this. * ID Recommended for permcath and sacral debrdiement by ID, has refused 11/02 will to revisit this conversation given elevation in white count. 14). Hx Alzheimer's Dementia * CT head w/o contrast (08/10/17):acute os subacute lacune infarct is not excluded in the left basal ganglia inferiorly with definitive chronic lacune identified in the right basal ganglia superiorly. No acute or subacute lobar brain infarction is appreciable by standard CT criteria. Mild age-related neuro * CT Head w/o contrast (10/14/17): no intracranial mass, hemorrhage, or evidence of acute infarct. 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 Old right external capsule ischemic change. Age related atrophy and chronic microvascular ischemic change * Note: patient does listen to his at bedside sometimes and follows simple commands but not always 15). Hx Sacral Ulcer: * General surgery (Dr. Forbes) on board-->help appreciated * Bone Scan performed 09/17/17 to check for Osteomyelitis at the Sacrum: negative for osteomyelitis * Currently on MediHoney daily, family has declined further debridement by surgery. Wound care on board * Recommended for permcath and sacral debrdiement by ID, has refused 11/02 16). Hx Right Heal Ulcer * Podiatry (Dr. Lundberg) on board-->help appreciated * Prevalon boots * Improved on exam and area of necrosis/unstageable area is decreased. Santyl and Optifoam daily. Pravolon boots 17). Hx Elevated LFTs * Normalized; patient is on statin and Micafungin 18). Diarrhea: * On Rectal Seal and producing dark brown/black stools that are watery. Stool Studies 10/20/17 are negative * On loperamide PRN 19). Hx Hyponatremia: * Normalized 20). Hx PEG Tube: * Vital 1.5 at 50 ml/hour 21). Hx Hypocalcemia: * Calcitriol 22). Prophylactic Measures: * Vitamin C, Dulcolax PRN, Pepcid, MVI, Zofran PRN, Florastor * Started on dialysis 08/15/17 * s/p Right Chest Permcath 08/22/17--->Recommended by ID to exchange out but has refused. Will need to revisit given elevation in WBC * S/P Tracheostomy 08/22/17 * S/P Peg tube placement 08/25/17 * S/p insertion of right posterior chest tube 08/19-->removed 08/24/17 * [place] Trach placed 09/15/17 * s/p new mid line (left upper extremity) 10/26/17 prior mid line removed and tip sent for culture and was negative. Midline left arm was removed 11/06/17 due to bleeding from site. NO Midline/PICC can be placed on Right UE due to the Right [id number] and can not be placed on the Left UE due to the Left Brachia/ Axillary DVTs * (Jovita Serrano): * Patient is now: DNR Disposition: Recommended by ID to get sacral debridement and permacath exchange out. Dr. Lazar spoke with on Tuesday, 11/02 but had refused. 11/08/17: Extensive conversation with today at the time of exam. 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 If debridement did take place then there would be no guarantees that this would improve considering his multiple comorbidities and that this will also likely be extremely painful to patient. Also that if these areas were not debrided, then we ran the risk for sepsis as well osteomyelitis. So unfortunately this placed us between a rock and a hard place concerning this issue. Considering this, I asked her to consider Hospice and explained to her that this would involve discontinuing HD, antibiotics and would involve making him as comfortable as possible. I have reached out to Palliative Care Nurse Domitila and explained to that Nurse Ramesh will speak with her 11/09/17. also asked about the possibility of spinal anesthesia for the debridement and I told her that I would check with the surgery team but also reminded her of the original concerns about patient pain after the procedure and likelihood of lack of improvement considering the multiple comorbidities. 11/09/17: Nurse Ramesh spoke with via phone (concerning what I discussed with her in person on 11/08/17) and will meet with her on 11/10/17. 11/10/17: Nurse Ramesh met with . [employer] that may be undocumented and relies on patient's benefits for financial source. Considering my conversation with patient on 11/08/17, I have ordered [employer] consultation for further recommendations. Nurse Ramesh will speak with [employer] Dr. Renan Bowles whose help will be appreciated concerning this issue. 11/11/17: Awaiting [employer] evaluation. 11/12/17: Awaiting [employer] evaluation. 11/13/17: Awaiting [employer] evaluation. Cullen Barth D.O. 11/13/17 18:19
--- NOTE | 2017-11-13 11:07 | CP.PCM.PN ---
Subjective - Date & Time of Evaluation Date of Evaluation: 11/12/17 Time of Evaluation: 09:00 - Subjective Subjective: Podiatry Progress Note - Dr. Lundberg 77 y.o M seen at bedside today for f/u of chronic right heel ulceration. Patient is seen resting comfortably in bed and asleep during the time of visitation. Patient was noted to be in bed with offloading boots in place and dressing intact, clean and dry. Objective - Vital Signs/Intake and Output Vital Signs (last 24 hours): Temp Pulse Resp BP Pulse Ox 98.1 F 117 H 20 148/68 96 11/13/17 10:02 11/13/17 10:02 11/13/17 10:02 11/13/17 10:02 11/13/17 10:02 Intake and Output: 11/13/17 11/13/17 06:59 18:59 Intake Total 880 Output Total 250 Balance 630 - Medications Medications: Current Medications Ascorbic Acid (Vitamin C 500 Mg Tab) 500 mg PEG DAILY [facility] Last Admin: 11/13/17 09:33 Dose: 500 mg Aspirin (Aspirin Chewable) 81 mg PO DAILY [facility] Last Admin: 11/13/17 09:33 Dose: 81 mg Calcitriol (Rocaltrol) 0.25 mcg PEG DAILY [facility] Last Admin: 11/13/17 09:33 Dose: 0.25 mcg Calcium Acetate (Phoslo) 2,001 mg GT TIDCC [facility] Last Admin: 11/13/17 08:30 Dose: 2,001 mg Epoetin Chencho (Procrit) 10,000 unit IV MWF [facility] Last Admin: 11/11/17 11:17 Dose: 10,000 unit Micafungin Sodium 100 mg/ (Sodium Chloride) 100 mls @ 100 mls/hr IV Q24H [facility] Last Admin: 11/12/17 18:41 Dose: 100 mls/hr Meropenem 500 mg/ Sodium (Chloride) 100 mls @ 50 mls/hr IVPB Q8 [facility] Last Admin: 11/13/17 05:30 Dose: 50 mls/hr Insulin Aspart (Novolog) 0 unit SC Q6 [facility] PRN Reason: Protocol Last Admin: 11/13/17 06:04 Dose: 2 unit Insulin Detemir (Levemir) 35 unit SC Q12 [facility] Last Admin: 11/13/17 09:38 Dose: 35 unit Loperamide HCl (Imodium) 1 mg PO Q4H PRN PRN Reason: Diarrhea Last Admin: 11/04/17 21:10 Dose: 1 mg Metoprolol Tartrate (Lopressor) 12.5 mg PEG BID [facility] Last Admin: 11/13/17 09:36 Dose: 12.5 mg Multivitamins (Hexavitamin) 1 tab PEG DAILY [facility] Last Admin: 11/13/17 09:33 Dose: 1 tab Rosuvastatin Calcium (Crestor) 10 mg PO HS [facility] Last Admin: 11/12/17 21:38 Dose: 10 mg Saccharomyces Boulardii (Florastor) 250 mg PO BID [facility] Last Admin: 11/13/17 09:34 Dose: 250 mg Vitamin A (Vitamin A & D Oint Ud Foilpak) 0.5 ea TOP Q1H PRN PRN Reason: Dry skin Last Admin: 11/12/17 09:34 Dose: 0.5 ea - Labs Labs: 11/13/17 08:47 11/13/17 08:47 PT 13.4 SECONDS (9.7-12.2) H 10/14/17 16:30 INR 1.2 10/14/17 16:30 APTT 28 SECONDS (21-34) 10/14/17 16:30 - Constitutional Appears: Well, Non-toxic, No Acute Distress - Extremities Exam Additional comments: B/L lower extremity focused exam: VASC- pedal pulses faintly palpable, CFT >4 sec to all digits, temperature gradient wnl, no edema noted to the LE DERM- right heel appears to have necrotic eschar that is non-stageable, no lincoln wound erythema, no drainage, no malodor, no cellulitis, no odor, no cellutlitis or streaking noted NEURO- pedal sensation grossly diminished ORTHO- no pain with palpation to the heels Assessment and Plan - Assessment and Plan (Free Text) Assessment: 77 yo male patient seen and evaluated for right heel unstageable ulcer Plan: Patient seen and evaluated at bedside Discussed plan with attending Dr. Lundberg Labs and vitals reviewed- afebrile, WBC 16.2 on 11/12/17 Right heel cleasned with saline and santyl and optifoam applied to right heel Foot wound does not appear clinically infected at this time Offloading boots reapplied, to remain on at all times Podiatry will continue to follow patient
[2017-11-13] MEDS: Micafungin 100 MG in Sodium Chloride 0.9% 100 ML IV SCH (17:32)
--- NOTE | 2017-11-13 21:48 | CP.PCM.PN ---
Subjective - Date & Time of Evaluation Date of Evaluation: 11/09/17 Time of Evaluation: 07:05 - Subjective Subjective: Patient seen and evaluated Not in distress HR under control Objective - Vital Signs/Intake and Output Vital Signs (last 24 hours): Temp Pulse Resp BP Pulse Ox 98.8 F 104 H 20 151/76 H 97 11/13/17 15:00 11/13/17 15:00 11/13/17 15:00 11/13/17 15:00 11/13/17 15:00 Intake and Output: 11/13/17 11/14/17 18:59 06:59 Intake Total 680 Output Total 100 Balance 580 - Medications Medications: Current Medications Ascorbic Acid (Vitamin C 500 Mg Tab) 500 mg PEG DAILY [facility] Last Admin: 11/13/17 09:33 Dose: 500 mg Aspirin (Aspirin Chewable) 81 mg PO DAILY [facility] Last Admin: 11/13/17 09:33 Dose: 81 mg Calcitriol (Rocaltrol) 0.25 mcg PEG DAILY [facility] Last Admin: 11/13/17 09:33 Dose: 0.25 mcg Calcium Acetate (Phoslo) 2,001 mg GT TIDCC [facility] Last Admin: 11/13/17 16:59 Dose: 2,001 mg Epoetin Chencho (Procrit) 10,000 unit IV MWF [facility] Last Admin: 11/11/17 11:17 Dose: 10,000 unit Micafungin Sodium 100 mg/ (Sodium Chloride) 100 mls @ 100 mls/hr IV Q24H [facility] Last Admin: 11/13/17 17:32 Dose: 100 mls/hr Meropenem 500 mg/ Sodium (Chloride) 100 mls @ 50 mls/hr IVPB Q8 [facility] Last Admin: 11/13/17 21:29 Dose: 50 mls/hr Insulin Aspart (Novolog) 0 unit SC Q6 [facility] PRN Reason: Protocol Last Admin: 11/13/17 17:18 Dose: 2 unit Insulin Detemir (Levemir) 35 unit SC Q12 [facility] Last Admin: 11/13/17 21:30 Dose: 35 unit Loperamide HCl (Imodium) 1 mg PO Q4H PRN PRN Reason: Diarrhea Last Admin: 11/04/17 21:10 Dose: 1 mg Metoprolol Tartrate (Lopressor) 12.5 mg PEG BID [facility] Last Admin: 11/13/17 16:59 Dose: 12.5 mg Multivitamins (Hexavitamin) 1 tab PEG DAILY [facility] Last Admin: 11/13/17 09:33 Dose: 1 tab Rosuvastatin Calcium (Crestor) 10 mg PO HS [facility] Last Admin: 11/13/17 21:21 Dose: 10 mg Saccharomyces Boulardii (Florastor) 250 mg PO BID [facility] Last Admin: 11/13/17 16:59 Dose: 250 mg Vitamin A (Vitamin A & D Oint Ud Foilpak) 0.5 ea TOP Q1H PRN PRN Reason: Dry skin Last Admin: 11/12/17 09:34 Dose: 0.5 ea - Labs Labs: 11/13/17 08:47 11/13/17 08:47 PT 13.4 SECONDS (9.7-12.2) H 10/14/17 16:30 INR 1.2 10/14/17 16:30 APTT 28 SECONDS (21-34) 10/14/17 16:30
--- NOTE | 2017-11-13 21:50 | CP.PCM.PN ---
Subjective - Date & Time of Evaluation Date of Evaluation: 11/12/17 Time of Evaluation: 18:30 - Subjective Subjective: Patient seen and evaluated Not in distress Objective - Vital Signs/Intake and Output Vital Signs (last 24 hours): Temp Pulse Resp BP Pulse Ox 98.8 F 104 H 20 151/76 H 97 11/13/17 15:00 11/13/17 15:00 11/13/17 15:00 11/13/17 15:00 11/13/17 15:00 Intake and Output: 11/13/17 11/14/17 18:59 06:59 Intake Total 680 Output Total 100 Balance 580 - Medications Medications: Current Medications Ascorbic Acid (Vitamin C 500 Mg Tab) 500 mg PEG DAILY [facility] Last Admin: 11/13/17 09:33 Dose: 500 mg Aspirin (Aspirin Chewable) 81 mg PO DAILY [facility] Last Admin: 11/13/17 09:33 Dose: 81 mg Calcitriol (Rocaltrol) 0.25 mcg PEG DAILY [facility] Last Admin: 11/13/17 09:33 Dose: 0.25 mcg Calcium Acetate (Phoslo) 2,001 mg GT TIDCC [facility] Last Admin: 11/13/17 16:59 Dose: 2,001 mg Epoetin Chencho (Procrit) 10,000 unit IV MWF [facility] Last Admin: 11/11/17 11:17 Dose: 10,000 unit Micafungin Sodium 100 mg/ (Sodium Chloride) 100 mls @ 100 mls/hr IV Q24H [facility] Last Admin: 11/13/17 17:32 Dose: 100 mls/hr Meropenem 500 mg/ Sodium (Chloride) 100 mls @ 50 mls/hr IVPB Q8 [facility] Last Admin: 11/13/17 21:29 Dose: 50 mls/hr Insulin Aspart (Novolog) 0 unit SC Q6 [facility] PRN Reason: Protocol Last Admin: 11/13/17 17:18 Dose: 2 unit Insulin Detemir (Levemir) 35 unit SC Q12 [facility] Last Admin: 11/13/17 21:30 Dose: 35 unit Loperamide HCl (Imodium) 1 mg PO Q4H PRN PRN Reason: Diarrhea Last Admin: 11/04/17 21:10 Dose: 1 mg Metoprolol Tartrate (Lopressor) 12.5 mg PEG BID [facility] Last Admin: 11/13/17 16:59 Dose: 12.5 mg Multivitamins (Hexavitamin) 1 tab PEG DAILY [facility] Last Admin: 11/13/17 09:33 Dose: 1 tab Rosuvastatin Calcium (Crestor) 10 mg PO HS [facility] Last Admin: 11/13/17 21:21 Dose: 10 mg Saccharomyces Boulardii (Florastor) 250 mg PO BID [facility] Last Admin: 11/13/17 16:59 Dose: 250 mg Vitamin A (Vitamin A & D Oint Ud Foilpak) 0.5 ea TOP Q1H PRN PRN Reason: Dry skin Last Admin: 11/12/17 09:34 Dose: 0.5 ea - Labs Labs: 11/13/17 08:47 11/13/17 08:47 PT 13.4 SECONDS (9.7-12.2) H 10/14/17 16:30 INR 1.2 10/14/17 16:30 APTT 28 SECONDS (21-34) 10/14/17 16:30
--- NOTE | 2017-11-13 21:51 | CP.PCM.PN ---
Subjective - Date & Time of Evaluation Date of Evaluation: 11/13/17 Time of Evaluation: 16:40 - Subjective Subjective: patient seen and evaluated Not in distress No new cardiac events noted Objective - Vital Signs/Intake and Output Vital Signs (last 24 hours): Temp Pulse Resp BP Pulse Ox 98.8 F 104 H 20 151/76 H 97 11/13/17 15:00 11/13/17 15:00 11/13/17 15:00 11/13/17 15:00 11/13/17 15:00 Intake and Output: 11/13/17 11/14/17 18:59 06:59 Intake Total 680 Output Total 100 Balance 580 - Medications Medications: Current Medications Ascorbic Acid (Vitamin C 500 Mg Tab) [address] [facility] Last Admin: 11/13/17 09:33 Dose: 500 mg Aspirin (Aspirin Chewable) [address] [facility] Last Admin: 11/13/17 09:33 Dose: 81 mg Calcitriol (Rocaltrol) 0.[address] [facility] Last Admin: 11/13/17 09:33 Dose: 0.25 mcg Calcium Acetate (Phoslo) 2,[address] [facility] Last Admin: 11/13/17 16:59 Dose: 2,001 mg Epoetin Chencho (Procrit) 10,[address] [facility] Last Admin: 11/11/17 11:17 Dose: 10,000 unit Micafungin Sodium 100 mg/ (Sodium Chloride) 100 mls @ 100 mls/hr IV Q24H [facility] Last Admin: 11/13/17 17:32 Dose: 100 mls/hr Meropenem 500 mg/ Sodium (Chloride) 100 mls @ 50 mls/hr IVPB Q8 [facility] Last Admin: 11/13/17 21:29 Dose: 50 mls/hr Insulin Aspart (Novolog) 0 unit SC Q6 [facility] PRN Reason: Protocol Last Admin: 11/13/17 17:18 Dose: 2 unit Insulin Detemir (Levemir) [address] [facility] Last Admin: 11/13/17 21:30 Dose: 35 unit Loperamide HCl (Imodium) 1 mg PO Q4H PRN PRN Reason: Diarrhea Last Admin: 11/04/17 21:10 Dose: 1 mg Metoprolol Tartrate (Lopressor) 12.[address] [facility] Last Admin: 11/13/17 16:59 Dose: 12.5 mg Multivitamins (Hexavitamin) [address] [facility] Last Admin: 11/13/17 09:33 Dose: 1 tab Rosuvastatin Calcium (Crestor) [address] [facility] Last Admin: 11/13/17 21:21 Dose: 10 mg Saccharomyces Boulardii (Florastor) [address] [facility] Last Admin: 11/13/17 16:59 Dose: 250 mg Vitamin A (Vitamin A & D Oint Ud Foilpak) 0.5 ea TOP Q1H PRN PRN Reason: Dry skin Last Admin: 11/12/17 09:34 Dose: 0.5 ea - Labs Labs: 11/13/17 08:47 11/13/17 08:47 PT 13.4 SECONDS (9.7-12.2) H 10/14/17 16:30 INR 1.2 10/14/17 16:30 APTT 28 SECONDS (21-34) 10/14/17 16:30
[2017-11-14] MEDS: (Novolog) Insulin Aspart, Recombinant 100 u/ml 10 ml vial SC SCH ×4 (00:12→18:29)
[2017-11-14] MEDS: Meropenem 500 MG in Sodium Chloride 0.9% 100 ML IVPB SCH ×2 (05:13→13:25)
[2017-11-14 07:01] LABS: BASO # 0.1 K/uL (0.0-0.2); BASO % 0.5 % (0.0-2.0); EOS # 0.2 K/uL (0.0-0.7); EOS % 1.1 % (0.0-4.0); HEMATOCRIT 31.7 % (35.0-51.0); LYMPH # 2.6 K/uL (1.0-4.3); LYMPH % 13.2 % (20.0-40.0); MEAN CELL VOLUME 92.1 fL (80.0-94.0); MEAN CORPUSCULAR HEMOGLOBIN 29.5 pg (27.0-31.0); MEAN CORPUSCULAR HGB CONC 32.1 g/dL (33.0-37.0); MEAN PLATELET VOLUME 7.2 fL (7.2-11.7); MONO # 0.9 K/uL (0.0-0.8); MONO % 4.4 % (0.0-10.0); WHITE BLOOD COUNT 19.9 K/uL (4.8-10.8)
[2017-11-14 07:41] LABS: ALB/GLOB RATIO 0.8 (1.0-2.1); BILIRUBIN,TOTAL 0.5 mg/dL (0.2-1.3); CALCIUM 7.9 mg/dl (8.6-10.4); POTASSIUM 5.7 mmol/L (3.6-5.2); TOTAL PROTEIN 5.8 g/dL (6.3-8.3)
[2017-11-14] MEDS: Multiple Vitamins Tab PEG SCH ×2 (08:17→11:16)
[2017-11-14] MEDS: Saccharomyces Boulardi 250 mg Cap PEG SCH ×3 (08:22→18:16)
[2017-11-14] MEDS: Insulin Detemir 100 units/ml Vial (Levemir) SC SCH ×2 (09:18→21:49)
[2017-11-14] MEDS: Epoetin Alfa 10,000 unit/ml Dialysis IV SCH (10:32)
--- NOTE | 2017-11-14 11:53 | CP.PCM.PN ---
Subjective - Date & Time of Evaluation Date of Evaluation: 11/14/17 Time of Evaluation: 11:50 - Subjective Subjective: Seen at dialysis tolerating UF 1000ml well so far remains tachy- 120s more alert today rermains on antimicrobials Objective - Vital Signs/Intake and Output Vital Signs (last 24 hours): Temp Pulse Resp BP Pulse Ox 97.6 F 119 H 20 153/64 H 98 11/14/17 09:20 11/14/17 11:20 11/14/17 09:20 11/14/17 11:20 11/14/17 09:20 Intake and Output: 11/14/17 11/14/17 06:59 18:59 Intake Total 1460 Output Total 400 Balance 1060 - Medications Medications: Current Medications Ascorbic Acid (Vitamin C 500 Mg Tab) 500 mg PEG DAILY [facility] Last Admin: 11/14/17 11:17 Dose: Not Given Aspirin (Aspirin Chewable) 81 mg PO DAILY [facility] Last Admin: 11/14/17 11:16 Dose: Not Given Calcitriol (Rocaltrol) 0.25 mcg PEG DAILY [facility] Last Admin: 11/14/17 11:17 Dose: Not Given Calcium Acetate (Phoslo) 2,001 mg GT TIDCC [facility] Last Admin: 11/14/17 08:16 Dose: 2,001 mg Epoetin Chencho (Procrit) 10,000 unit IV MWF [facility] Last Admin: 11/14/17 10:32 Dose: 10,000 unit Heparin Sodium (Porcine) (Heparin) 3,700 units IVP MWF [facility] Last Admin: 11/14/17 11:49 Dose: 3,700 units Micafungin Sodium 100 mg/ (Sodium Chloride) 100 mls @ 100 mls/hr IV Q24H [facility] Last Admin: 11/13/17 17:32 Dose: 100 mls/hr Meropenem 500 mg/ Sodium (Chloride) 100 mls @ 50 mls/hr IVPB Q8 [facility] Last Admin: 11/14/17 05:13 Dose: 50 mls/hr Insulin Aspart (Novolog) 0 unit SC Q6 [facility] PRN Reason: Protocol Last Admin: 11/14/17 06:08 Dose: 2 unit Insulin Detemir (Levemir) 35 unit SC Q12 [facility] Last Admin: 11/14/17 09:18 Dose: 35 unit Loperamide HCl (Imodium) 1 mg PO Q4H PRN PRN Reason: Diarrhea Last Admin: 11/04/17 21:10 Dose: 1 mg Metoprolol Tartrate (Lopressor) 12.5 mg PEG BID [facility] Last Admin: 11/14/17 11:16 Dose: Not Given Multivitamins (Hexavitamin) 1 tab PEG DAILY [facility] Last Admin: 11/14/17 11:16 Dose: Not Given Rosuvastatin Calcium (Crestor) 10 mg PO HS [facility] Last Admin: 11/13/17 21:21 Dose: 10 mg Saccharomyces Boulardii (Florastor) 250 mg PEG BID [facility] Last Admin: 11/14/17 11:16 Dose: Not Given Vitamin A (Vitamin A & D Oint Ud Foilpak) 0.5 ea TOP Q1H PRN PRN Reason: Dry skin Last Admin: 11/12/17 09:34 Dose: 0.5 ea - Labs Labs: 11/14/17 06:52 11/14/17 06:52 PT 13.4 SECONDS (9.7-12.2) H 10/14/17 16:30 INR 1.2 10/14/17 16:30 APTT 28 SECONDS (21-34) 10/14/17 16:30 - Constitutional Appears: Confused, Chronically Ill - Head Exam Head Exam: ATRAUMATIC, NORMAL INSPECTION - Eye Exam Eye Exam: EOMI, Normal appearance - Neck Exam Neck Exam: Normal Inspection. absent: Tenderness - Respiratory Exam Respiratory Exam: Clear to Ausculation Bilateral, Respiratory Distress - Cardiovascular Exam Cardiovascular Exam: Tachycardia, Irregular Rhythm - GI/Abdominal Exam GI & Abdominal Exam: Soft. absent: Tenderness - Extremities Exam Extremities Exam: Normal Inspection. absent: Tenderness - Neurological Exam Neurological Exam: Altered, Motor Sensory Deficit - Skin Skin Exam: Dry, Warm Assessment and Plan (1) Acute on chronic renal failure Status: Resolved (2) CAD (coronary artery disease) Status: Chronic (3) CHF exacerbation Status: Chronic (4) Type 2 diabetes mellitus with diabetic nephropathy Status: Acute (5) Cardiorenal disease Status: Acute (6) ESRD (end stage renal disease) Status: Acute (7) Sacral decubitus ulcer Status: Acute - Assessment and Plan (Free Text) Plan: dialysis MWF same feeds same wound care, antimicrobials supportive care
--- NOTE | 2017-11-14 15:21 | CP.PCM.PN ---
<Aubree García - Last Filed: 11/14/17 17:08> Subjective - Date & Time of Evaluation Date of Evaluation: 11/14/17 Time of Evaluation: 15:20 - Subjective Subjective: Medicine Progress Note: Hospitalist Service Patient seen and examined at bedside. Per nursing, no acute events overnight. Patient is alert, not following commands. Objective - Vital Signs/Intake and Output Vital Signs (last 24 hours): Temp Pulse Resp BP Pulse Ox 97.7 F 110 H 18 109/63 96 11/14/17 12:20 11/14/17 12:20 11/14/17 12:20 11/14/17 12:20 11/14/17 12:20 Intake and Output: 11/14/17 11/14/17 06:59 18:59 Intake Total 1460 Output Total 400 Balance 1060 - Medications Medications: Current Medications Ascorbic Acid (Vitamin C 500 Mg Tab) 500 mg PEG DAILY [facility] Last Admin: 11/14/17 11:17 Dose: Not Given Aspirin (Aspirin Chewable) 81 mg PO DAILY [facility] Last Admin: 11/14/17 11:16 Dose: Not Given Calcitriol (Rocaltrol) 0.25 mcg PEG DAILY [facility] Last Admin: 11/14/17 11:17 Dose: Not Given Calcium Acetate (Phoslo) 2,001 mg GT TIDCC [facility] Last Admin: 11/14/17 13:21 Dose: 2,001 mg Epoetin Chencho (Procrit) 10,000 unit IV MWF [facility] Last Admin: 11/14/17 10:32 Dose: 10,000 unit Heparin Sodium (Porcine) (Heparin) 3,700 units IVP MWF [facility] Last Admin: 11/14/17 11:49 Dose: 3,700 units Micafungin Sodium 100 mg/ (Sodium Chloride) 100 mls @ 100 mls/hr IV Q24H [facility] Last Admin: 11/13/17 17:32 Dose: 100 mls/hr Meropenem 500 mg/ Sodium (Chloride) 100 mls @ 50 mls/hr IVPB Q8 [facility] Last Admin: 11/14/17 13:25 Dose: 50 mls/hr Insulin Aspart (Novolog) 0 unit SC Q6 [facility] PRN Reason: Protocol Last Admin: 11/14/17 13:16 Dose: Not Given Insulin Detemir (Levemir) 35 unit SC Q12 [facility] Last Admin: 11/14/17 09:18 Dose: 35 unit Loperamide HCl (Imodium) 1 mg PO Q4H PRN PRN Reason: Diarrhea Last Admin: 11/04/17 21:10 Dose: 1 mg Metoprolol Tartrate (Lopressor) 12.5 mg PEG BID [facility] Last Admin: 11/14/17 11:16 Dose: Not Given Multivitamins (Hexavitamin) 1 tab PEG DAILY [facility] Last Admin: 11/14/17 11:16 Dose: Not Given Rosuvastatin Calcium (Crestor) 10 mg PO HS [facility] Last Admin: 11/13/17 21:21 Dose: 10 mg Saccharomyces Boulardii (Florastor) 250 mg PEG BID [facility] Last Admin: 11/14/17 11:16 Dose: Not Given Vitamin A (Vitamin A & D Oint Ud Foilpak) 0.5 ea TOP Q1H PRN PRN Reason: Dry skin Last Admin: 11/12/17 09:34 Dose: 0.5 ea - Labs Labs: 11/14/17 06:52 11/14/17 06:52 PT 13.4 SECONDS (9.7-12.2) H 10/14/17 16:30 INR 1.2 10/14/17 16:30 APTT 28 SECONDS (21-34) 10/14/17 16:30 - Constitutional Appears: Older Than Stated Age, Chronically Ill - Head Exam Head Exam: ATRAUMATIC, NORMAL INSPECTION - Eye Exam Eye Exam: EOMI, Normal appearance - ENT Exam ENT Exam: Mucous Membranes Moist - Neck Exam Additional comments: Trach collar in place - Respiratory Exam Respiratory Exam: Rhonchi, NORMAL BREATHING PATTERN - Cardiovascular Exam Cardiovascular Exam: Tachycardia, +S1, +S2 Additional comments: Permacath located on L chest wall - GI/Abdominal Exam GI & Abdominal Exam: Soft, Normal Bowel Sounds. absent: Guarding, Rigid, Tenderness Additional comments: +peg tube in place - Rectal Exam Additional comments: +rectal tube - Neurological Exam Neurological Exam: Alert, Awake - Skin Skin Exam: Dry, Normal Color, Warm Assessment and Plan - Assessment and Plan (Free Text) Plan: 1). Acute Respiratory Failure/ARDS/Cadiac Arrest/NSTEMI * Dr Cortés (cardiology) on the case, f/u recommendations * Dr. Mena (pulmonary) on the case, f/u recommendations * Code Blue on 9/13: asystole, cardiopulmonary resuscitative measures initiated , requiring 3 epis, bicarbonate, ROSC achieved and intubated and brought to the ICU. Patient currently on med/surg with trach collar * Aspirin 81mg PO daily * Lopressor 12.5mg PO BID with holding parameters * Crestor 10mg PO qHS * is refusing hospice, bioethics consult placed, f/u recommendations 2). Hx Abnormal Stress Test/AICD/CAD * Dr Cortés (cardiology) on the case, f/u recommendations * Dr. Mena (pulmonary) on the case, f/u recommendations * Code Blue on 08/10: asystole, cardiopulmonary resuscitative measures initiated , requiring 3 epis, bicarbonate, ROSC achieved and intubated and brought to the ICU. * Aspirin 81mg PO daily * Lopressor 12.5mg PO BID with holding parameters * Crestor 10mg PO qHS 3). Hx Atrial Flutter: * Stopped Eliquis 10/24/17 secondary significant drop in HgB. Heart Rate is elevated * Lopressor 12.5mg PO BID with holding parameters 4). Hx Acute on Chronic Sytolic HF * Aspirin 81mg PO daily * Lopressor 12.5mg PO BID with holding parameters * Crestor 10mg PO qHS * Lisinopril was discontinued on 10/14/17 at the time of [employer] for Hypotension 5). Leukocytosis * Infectious Disease (Dr. Lawrence) on the case, f/u recommendations * Blood Culture 10/22/17 is finalized as negative. * Sputum culture 10/14/17 is negative. * Stool cultures 10/20/17 are negative. 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 * Right Arm Midline Tip 10/06/17 culture is negative and removed. Midline Tip Culture 10/26/17 is negative. * Blood Cultures 10/28/17 are negative to date. * Iv ABx: Cefepime (10/12/17 through 10/24/17), Aztreonam (10/13/17 through )), Diflucan (10/14/17 through 10/26/17). * Currently on Meropenem 500 mg IV Q8H (10/28/17), Micofungin 100 mg IV Q24H () Flagyl (10/16/17). * Dr. Lazar spoke with 11/02, she does not want Permacath replaced given cardiac risk for operation/anesthesia. * ID Recommended for permcath and sacral debrdiement by ID, has refused 11/02, and will have to revisit this conversation given elevation in white count 6). Hx Pneumonia, Fungemia * ID on the case, f/u recommendations * Currently on Imipenem/Cilastatin (11/14/17), Micofungin 100 mg IV Q24H (-present) * ID recommends Permcath to be exchanged out and sacral debridement; however, has refused, Dr. Lazar had conversation on Tue, 11/02 given cardiac risk for invasive operation. 7). Hx HTN: * Lopressor 12.5mg PEG BID with holding parameters 8). Hx CKD on HD . * Family would like to continue HD through current Permacath and declined surgical intervention to change catheter (due to the Blood Culture 10/24/17 being positive for Reny glabrata) as recommended by Vascular Surgery and Infectious Disease. * Dr. Lazar discussed with at bedside 11/02, she continues to deny the exchange secondary to cardiac risk. * Went for HD today * Phoslo 1334mg PO TIDCC * Epocrit 10,000 unit IV MWF 9). Hx DM: * Continue Levemir 35 units [id number], ISS * monitor accuchecks * HgbA1c 8.4 10). Hx HLD * Crestor 10mg PO qHS 11). Hx Anemia: * Eliquis stopped 10/24/17 and was transfused 2 units PRBCs. * CBC morning 10/25/17 dropped from 11.2 post trasfusion 10/24/17 to 10.2 morning 10/25/17. * Stool Occult is Positive and GI Dr. Dsouza was reconsulted however no further workup recommended in light of patient current status. * Procrit 10,000 units -- * s/p 1 unit of PRBC 11/04 given declining H/H * HgB/Hct are currently stable 12) Hyperkalemia * Potassium 5.7 today * Will correct during hemodialysis * Continue to monitor 13). Hx DVT * Eliquis stopped 10/24/17 given positive bloody stool * Repeat dopplers LE 08/09/17 are negative for DVT * Left UE Doppler 11/08/17 was POSITIVE for DVTs in Left Brachial and Left Axillary Veins: Can NOT anticoagulate due to history of bleeding (requiring blood transfusion) with anticoagulation 14). Hx UTI: * Yeast on culture 10/24/17. He is currently on Micofungin 100 mg IV Q24H. He may be colonized with this. * ID Recommended for permcath and sacral debrdiement by ID, has refused 11/02 will to revisit this conversation given elevation in white count. 15). Hx Alzheimer's Dementia * CT head w/o contrast (08/10/17): acute os subacute lacune infarct is not excluded in the left basal ganglia inferiorly with definitive chronic lacune identified in the right basal ganglia superiorly. No acute or subacute lobar brain infarction is appreciable by standard CT criteria. Mild age-related neuro * CT Head w/o contrast (10/14/17): no intracranial mass, hemorrhage, or evidence of acute infarct. 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 Old right external capsule ischemic change. Age related atrophy and chronic microvascular ischemic change * Note: patient does listen to his at bedside sometimes and follows simple commands but not always 16). Hx Sacral Ulcer: * General surgery (Dr. Forbes) on board, f/u recommendations * Bone Scan performed 09/17/17 to check for Osteomyelitis at the Sacrum: negative for osteomyelitis * Currently on MediHoney daily, family has declined further debridement by surgery. Wound care on board * Recommended for permcath and sacral debrdiement by ID, has refused 11/02 * Continue Vitamin A&D ointment * Continue multivitamins, ascorbic acid 17). Hx Right Heal Ulcer * Podiatry (Dr. Lundberg) on board, f/u recommendations * Prevalon boots * Improved on exam and area of necrosis/unstageable area is decreased. Santyl and Optifoam daily. Pravolon boots 18). Hx Elevated LFTs * Normalized; patient is on statin and Micafungin 19). Diarrhea: * Resolved * Rectal tube in place * Stool Studies 10/20/17 are negative * On loperamide PRN 20). Hx Hyponatremia: * Resolved 21). Hx PEG Tube: * Vital 1.5 at 50 ml/hour 22). Hx Hypocalcemia: * Continue Calcitriol 23). Prophylactic Measures: * (Jovita Serrano): * Patient is now: DNR <Maraingel Lazar V - Last Filed: 11/14/17 22:20> Objective - Vital Signs/Intake and Output Vital Signs (last 24 hours): Temp Pulse Resp BP Pulse Ox 98 F 99 H 22 109/63 94 L 11/14/17 15:35 11/14/17 15:35 11/14/17 15:35 11/14/17 12:20 11/14/17 15:35 Intake and Output: 11/14/17 11/15/17 18:59 06:59 Intake Total 680 Output Total 200 Balance 480 - Medications Medications: Current Medications Ascorbic Acid (Vitamin C 500 Mg Tab) 500 mg PEG DAILY [facility] Last Admin: 11/14/17 11:17 Dose: Not Given Aspirin (Aspirin Chewable) 81 mg PO DAILY [facility] Last Admin: 11/14/17 11:16 Dose: Not Given Calcitriol (Rocaltrol) 0.25 mcg PEG DAILY [facility] Last Admin: 11/14/17 11:17 Dose: Not Given Calcium Acetate (Phoslo) 2,001 mg GT TIDCC [facility] Last Admin: 11/14/17 18:16 Dose: 2,001 mg Epoetin Chencho (Procrit) 10,000 unit IV MWF [facility] Last Admin: 11/14/17 10:32 Dose: 10,000 unit Heparin Sodium (Porcine) (Heparin) 3,700 units IVP MWF [facility] Last Admin: 11/14/17 11:49 Dose: 3,700 units Micafungin Sodium 100 mg/ (Sodium Chloride) 100 mls @ 100 mls/hr IV Q24H [facility] Last Admin: 11/14/17 18:19 Dose: 100 mls/hr Imipenem/Cilastatin Sodium 500 (mg/ Dextrose) 100 mls @ 100 mls/hr IV Q12H [facility] Last Admin: 11/14/17 20:15 Dose: 100 mls/hr Insulin Aspart (Novolog) 0 unit SC Q6 [facility] PRN Reason: Protocol Last Admin: 11/14/17 18:29 Dose: 1 unit Insulin Detemir (Levemir) 35 unit SC Q12 [facility] Last Admin: 11/14/17 21:49 Dose: 35 unit Loperamide HCl (Imodium) 1 mg PO Q4H PRN PRN Reason: Diarrhea Last Admin: 11/04/17 21:10 Dose: 1 mg Metoprolol Tartrate (Lopressor) 12.5 mg PEG BID [facility] Last Admin: 11/14/17 18:29 Dose: 12.5 mg Multivitamins (Hexavitamin) 1 tab PEG DAILY [facility] Last Admin: 11/14/17 11:16 Dose: Not Given Rosuvastatin Calcium (Crestor) 10 mg PO HS [facility] Last Admin: 11/14/17 21:44 Dose: 10 mg Saccharomyces Boulardii (Florastor) 250 mg PEG BID [facility] Last Admin: 11/14/17 18:16 Dose: 250 mg Vitamin A (Vitamin A & D Oint Ud Foilpak) 0.5 ea TOP Q1H PRN PRN Reason: Dry skin Last Admin: 11/12/17 09:34 Dose: 0.5 ea - Labs Labs: 11/14/17 06:52 11/14/17 06:52 PT 13.4 SECONDS (9.7-12.2) H 10/14/17 16:30 INR 1.2 10/14/17 16:30 APTT 28 SECONDS (21-34) 10/14/17 16:30 Attending/Attestation - Attestation I have personally seen and examined this patient.: Yes I have fully participated in the care of the patient.: Yes I have reviewed all pertinent clinical information, including history, physical exam and plan: Yes Notes (Text): Patient seen, examined, and case discussed with day-time resident. Patient seen during his dialysis session this morning. Patient's not present at bedside. Patient is awake but not following commands, Unable tot turn patient since he is currently receiving dialysis at beside. Per discussion with dialysis nurse, has had to suction him given he is producing thick secretions. Discussed with Dr. Bowles and in regards to bioethics consult. Discussed briefly with , spoke with patient's nephew in [place] and , patient's family is involved, would like facility close to where is living so she can visit, they are attempting insurance thru HMO, and preferably termite technician care facility. Will need to follow-up with case management, when I was last seeing the patient, patient hadn't had active insurance, was supposed to apply 10/28 but had not renew? Assessment/Plans 1). Hx Acute Respiratory Failure/ARDS/Cadiac Arrest/NSTEMI * Dr Cortés (cardiology) on the case-->help appreciated * Dr. Mena (pulmonary) on the case-->help appreciated * Code Blue on 08/10: asystole, cardiopulmonary resuscitative measures initiated , requiring 3 epis, bicarbonate, ROSC achieved and intubated and brought to the ICU. Patient has had multiple for hypotension. Latest [employer] was on 10/14; stable awaiting for tele bed when available. * Atrovent 0.5mg Inhaled RQ6H * Aspirin 81mg PO daily * Lopressor 12.5mg PO BID with holding parameters * Midodrine 10mg PO TID * Crestor 10mg PO qHS 2). Hx Abnormal Stress Test/AICD/CAD * Dr Cortés (cardiology) on the case-->help appreciated * Dr. Mena (pulmonary) on the case-->help appreciated * Code Blue on 08/10: asystole, cardiopulmonary resuscitative measures initiated , requiring 3 epis, bicarbonate, ROSC achieved and intubated and brought to the ICU. Patient has had multiple for hypotension. Latest [employer] was on 10/14/17 * Aspirin 81mg PO daily * Lopressor 12.5mg PO BID with holding parameters * Midodrine 10mg PO TID * Crestor 10mg PO qHS 3). Hx Atrial Flutter: * stopped Eliquis 10/24/17 secondary significant drop in HgB. Heart Rate is elevated. Ordered for Lopressor 5mg iVX1 on 10/31 * Lopressor 12.5mg PO BID with holding parameters 4). Hx Acute on Chronic Sytolic HF * Aspirin 81mg PO daily * Lopressor 12.5mg PO BID with holding parameters * Midodrine 10mg PO TID * Crestor 10mg PO qHS * Lisinopril was discontinued on 10/14/17 at the time of [employer] for Hypotension 5). Leukocytosis * Infectious Disease (Dr. Lawrence) on the case-->help appreciated * Blood Culture 10/22/17 is finalized as negative. * Sputum culture 10/14/17 is negative. * Stool cultures 10/20/17 are negative. 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 * Right Arm Midline Tip 10/06/17 culture is negative and removed. Midline Tip Culture 10/26/17 is negative. * Blood Cultures 10/28/17 are negative to date. * Iv ABx: Cefepime (10/12/17 through 10/24/17), Aztreonam (10/13/17 through )), Diflucan (10/14/17 through 10/26/17). * Currently on Meropenem 500 mg IV Q8H (10/28/17), Micofungin 100 mg IV Q24H () * Dr. Lazar spoke with 11/02, she does not want Permacath replaced given cardiac risk for operation/anesthesia. * ID Recommended for permcath and sacral debrdiement by ID, has refused 11/02, and will have to revisit this conversation given elevation in white count * 11/14: will need to f/u with ID, dictated consult not available in regards to if Primaxin to replace Meropenem or not. * Sacral ulcer unstagable 6). Hx Pneumonia, Fungemia * ID on the case-->help appreciated * Currently on Meropenem 500 mg IV Q8H (10/28/17-present ), Micofungin 100 mg IV Q24H (10/27/17-present) * ID recommends Permcath to be ex * changed out and sacral debridement; however, has refused, Dr. Lazar had conversation on Tue, 11/02 given cardiac risk for invasive operation. * 11/14: will need to f/u with ID, dictated consult not available in regards to if Primaxin to replace Meropenem or not. * Sacral ulcer unstagable 7). Hx HTN: * Lopressor 12.5mg PEG BID with holding parameters 8). Hx CKD on HD --. * Family would like to continue HD through current Permacath and declined surgical intervention to change catheter (due to the Blood Culture 10/24/17 being positive for Reny glabrata) as recommended by Vascular Surgery and Infectious Disease. * Dr. Lazar discussed with at bedside 11/02, she continues to deny the exchange secondary to cardiac risk. * Phoslo 1334mg PO TIDCC * Epocrit 10,000 unit IV MWF 9). Hx DM: * Levemir 35 units [id number] * monitor [id number] * HgbA1c 8.4 10). Hx HLD * Crestor 10mg PO qHS 11). Hx Anemia: * Eliquis stopped 10/24/17 and was transfused 2 units PRBCs. * CBC morning 10/25/17 dropped from 11.2 post trasfusion 10/24/17 to 10.2 morning 10/25/17. * Stool Occult is Positive and GI Dr. Dsouza was reconsulted however no further workup recommended in light of patient current status. * Procrit 10,000 units M-W- * s/p1 unit of PRBC 11/04 given declining H/H * HgB/Hct are currently stable 12). Hx DVT; Left upper Extremity DVT+ * Eliquis stopped 10/24/17 given positive bloody stool * Repeat dopplers LE 08/09/17 are negative for DVT * Left UE Doppler 11/08/17 was POSITIVE for DVTs in Left Brachial and Left Axillary Veins: Can NOT anticoagulate due to history of bleeding (requiring blood transfusion) with anticoagulation 13). Hx UTI: * Yeast on culture 10/24/17. He is currently on Micafungin 100 mg IV Q24H. He may be colonized with this. * ID Recommended for permcath and sacral debridement by ID, has refused 11/02 will to revisit this conversation given elevation in white count. 14). Hx Alzheimer's Dementia * CT head w/o contrast (08/10/17):acute os subacute lacune infarct is not excluded in the left basal ganglia inferiorly with definitive chronic lacune identified in the right basal ganglia superiorly. No acute or subacute lobar brain infarction is appreciable by standard CT criteria. Mild age-related neuro * CT Head w/o contrast (10/14/17): no intracranial mass, hemorrhage, or evidence of acute infarct. 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 Old right external capsule ischemic change. Age related atrophy and chronic microvascular ischemic change * Note: patient does listen to his at bedside sometimes and follows simple commands but not always 15). Hx Sacral Ulcer: * General surgery (Dr. Forbes) on board-->help appreciated * Bone Scan performed 09/17/17 to check for Osteomyelitis at the Sacrum: negative for osteomyelitis * Currently on MediHoney daily, family has declined further debridement by surgery. Wound care on board * Recommended for permcath and sacral debrdiement by ID, has refused 11/02 16). Hx Right Heal Ulcer * Podiatry (Dr. Lundberg) on board-->help appreciated * Prevalon boots * unstageable 17). Hx Elevated LFTs * Normalized; patient is on statin and Micafungin 18). Diarrhea: * On Rectal Seal and producing dark brown/black stools that are watery. Stool Studies 10/20/17 are negative * On loperamide PRN 19). Hx Hyponatremia: * Normalized 20). Hx PEG Tube: * Vital 1.5 at 50 ml/hour 21). Hx Hypocalcemia: * Calcitriol 22). Prophylactic Measures: * Vitamin C, Dulcolax PRN, Pepcid, MVI, Zofran PRN, Florastor * Started on dialysis 08/15/17 * s/p Right Chest Permcath 08/22/17--->Recommended by ID to exchange out but has refused. Will need to revisit given elevation in WBC * S/P Tracheostomy 08/22/17 * S/P Peg tube placement 08/25/17 * S/p insertion of right posterior chest tube 08/19-->removed 08/24/17 * Passy [place] Trach placed 09/15/17 * s/p new mid line (left upper extremity) 10/26/17 prior mid line removed and tip sent for culture and was negative. Midline left arm was removed 11/06/17 due to bleeding from site. NO Midline/PICC can be placed on Right UE due to the Right [id number] and can not be placed on the Left UE due to the Left Brachia/ Axillary DVTs * (Jovita Serrano): * Patient is now: DNR * Palliative care on board-->recommending for bioethics consult * Bioethics consult () to evaluate * F/u case management regarding patient's insurance Disposition: Recommended by ID to get sacral debridement and permacath exchange out. Dr. Lazar spoke with on Tuesday, 11/02 but had refused. 12/12/17: Extensive conversation with today at the time of exam. 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 If debridement did take place then there would be no guarantees that this would improve considering his multiple comorbidities and that this will also likely be extremely painful to patient. Also that if these areas were not debrided, then we ran the risk for sepsis as well osteomyelitis. So unfortunately this placed us between a rock and a hard place concerning this issue. Considering this, I asked her to consider Hospice and explained to her that this would involve discontinuing HD, antibiotics and would involve making him as comfortable as possible. I have reached out to Palliative Care Nurse Domitila and explained to that Nurse Ramesh will speak with her 11/09/17. also asked about the possibility of spinal anesthesia for the debridement and I told her that I would check with the surgery team but also reminded her of the original concerns about patient pain after the procedure and likelihood of lack of improvement considering the multiple comorbidities. 11/09/17: Nurse Ramesh spoke with via phone (concerning what I discussed with her in person on 11/08/17) and will meet with her on 11/10/17. 11/10/17: Nurse Ramesh met with . [place] that may be undocumented and relies on patient's benefits for financial source. Considering my conversation with patient on 11/08/17, I have ordered [employer] consultation for further recommendations. Nurse Ramesh will speak with [employer] Dr. Renan Bowles whose help will be appreciated concerning this issue. 11/11/17: Awaiting [employer] evaluation. 11/12/17: Awaiting [employer] evaluation. 11/13/17: Awaiting [employer] evaluation. 11/14/17: Bioethic evaluation in progress.
[2017-11-14] MEDS: Micafungin 100 MG in Sodium Chloride 0.9% 100 ML IV SCH (18:19)
[2017-11-14] MEDS: Imipenem/Cilastatin 500 MG in Dextrose 5% In Water 100 ML IV SCH (20:15)
--- NOTE | 2017-11-14 21:03 | CP.PCM.PN ---
Subjective - Date & Time of Evaluation Date of Evaluation: 11/14/17 Time of Evaluation: 05:15 - Subjective Subjective: dictated Objective - Vital Signs/Intake and Output Vital Signs (last 24 hours): Temp Pulse Resp BP Pulse Ox 98 F 99 H 22 109/63 94 L 11/14/17 15:35 11/14/17 15:35 11/14/17 15:35 11/14/17 12:20 11/14/17 15:35 Intake and Output: 11/14/17 11/15/17 18:59 06:59 Intake Total 680 Output Total 200 Balance 480 - Medications Medications: Current Medications Ascorbic Acid (Vitamin C 500 Mg Tab) 500 mg PEG DAILY COUNTS INCLUDE 234 BEDS AT THE [facility] Last Admin: 11/14/17 11:17 Dose: Not Given Aspirin (Aspirin Chewable) 81 mg PO DAILY COUNTS INCLUDE 234 BEDS AT THE [facility] Last Admin: 11/14/17 11:16 Dose: Not Given Calcitriol (Rocaltrol) 0.25 mcg PEG DAILY COUNTS INCLUDE 234 BEDS AT THE [facility] Last Admin: 11/14/17 11:17 Dose: Not Given Calcium Acetate (Phoslo) 2,001 mg GT TIDCC COUNTS INCLUDE 234 BEDS AT THE [facility] Last Admin: 11/14/17 18:16 Dose: 2,001 mg Epoetin Chencho (Procrit) 10,000 unit IV MWF COUNTS INCLUDE 234 BEDS AT THE [facility] Last Admin: 11/14/17 10:32 Dose: 10,000 unit Heparin Sodium (Porcine) (Heparin) 3,700 units IVP MWF COUNTS INCLUDE 234 BEDS AT THE [facility] Last Admin: 11/14/17 11:49 Dose: 3,700 units Micafungin Sodium 100 mg/ (Sodium Chloride) 100 mls @ 100 mls/hr IV Q24H COUNTS INCLUDE 234 BEDS AT THE [facility] Last Admin: 11/14/17 18:19 Dose: 100 mls/hr Imipenem/Cilastatin Sodium 500 (mg/ Dextrose) 100 mls @ 100 mls/hr IV Q12H COUNTS INCLUDE 234 BEDS AT THE [facility] Last Admin: 11/14/17 20:15 Dose: 100 mls/hr Insulin Aspart (Novolog) 0 unit SC Q6 COUNTS INCLUDE 234 BEDS AT THE [facility] PRN Reason: Protocol Last Admin: 11/14/17 18:29 Dose: 1 unit Insulin Detemir (Levemir) 35 unit SC Q12 COUNTS INCLUDE 234 BEDS AT THE [facility] Last Admin: 11/14/17 09:18 Dose: 35 unit Loperamide HCl (Imodium) 1 mg PO Q4H PRN PRN Reason: Diarrhea Last Admin: 11/04/17 21:10 Dose: 1 mg Metoprolol Tartrate (Lopressor) 12.5 mg PEG BID COUNTS INCLUDE 234 BEDS AT THE [facility] Last Admin: 11/14/17 18:29 Dose: 12.5 mg Multivitamins (Hexavitamin) 1 tab PEG DAILY COUNTS INCLUDE 234 BEDS AT THE [facility] Last Admin: 11/14/17 11:16 Dose: Not Given Rosuvastatin Calcium (Crestor) 10 mg PO HS COUNTS INCLUDE 234 BEDS AT THE [facility] Last Admin: 11/13/17 21:21 Dose: 10 mg Saccharomyces Boulardii (Florastor) 250 mg PEG BID COUNTS INCLUDE 234 BEDS AT THE [facility] Last Admin: 11/14/17 18:16 Dose: 250 mg Vitamin A (Vitamin A & D Oint Ud Foilpak) 0.5 ea TOP Q1H PRN PRN Reason: Dry skin Last Admin: 11/12/17 09:34 Dose: 0.5 ea - Labs Labs: 11/14/17 06:52 11/14/17 06:52 PT 13.4 SECONDS (9.7-12.2) H 10/14/17 16:30 INR 1.2 10/14/17 16:30 APTT 28 SECONDS (21-34) 10/14/17 16:30
[2017-11-14] MEDS ORDERED: Imipenem/Cilastatin 500 MG in Dextrose 5% In Water 100 ML IVPB SCH (22:00)
--- NOTE | 2017-11-14 22:27 | CP.PCM.PN ---
Subjective - Date & Time of Evaluation Date of Evaluation: 11/14/17 Time of Evaluation: 07:25 - Subjective Subjective: Patient seen and evaluated Not in distress Objective - Vital Signs/Intake and Output Vital Signs (last 24 hours): Temp Pulse Resp BP Pulse Ox 98 F 99 H 22 109/63 94 L 11/14/17 15:35 11/14/17 15:35 11/14/17 15:35 11/14/17 12:20 11/14/17 15:35 Intake and Output: 11/14/17 11/15/17 18:59 06:59 Intake Total 680 600 Output Total 200 0 Balance 480 600 - Medications Medications: Current Medications Ascorbic Acid (Vitamin C 500 Mg Tab) 500 mg PEG DAILY [facility] Last Admin: 11/14/17 11:17 Dose: Not Given Aspirin (Aspirin Chewable) 81 mg PO DAILY [facility] Last Admin: 11/14/17 11:16 Dose: Not Given Calcitriol (Rocaltrol) 0.25 mcg PEG DAILY [facility] Last Admin: 11/14/17 11:17 Dose: Not Given Calcium Acetate (Phoslo) 2,001 mg GT TIDCC [facility] Last Admin: 11/14/17 18:16 Dose: 2,001 mg Epoetin Chencho (Procrit) 10,000 unit IV [facility] Last Admin: 11/14/17 10:32 Dose: 10,000 unit Heparin Sodium (Porcine) (Heparin) 3,700 units IVP F [facility] Last Admin: 11/14/17 11:49 Dose: 3,700 units Micafungin Sodium 100 mg/ (Sodium Chloride) 100 mls @ 100 mls/hr IV Q24H [facility] Last Admin: 11/14/17 18:19 Dose: 100 mls/hr Imipenem/Cilastatin Sodium 500 (mg/ Dextrose) 100 mls @ 100 mls/hr IV Q12H [facility] Last Admin: 11/14/17 20:15 Dose: 100 mls/hr Insulin Aspart (Novolog) 0 unit SC Q6 [facility]NA[facility] PRN Reason: Protocol Last Admin: 11/14/17 18:29 Dose: 1 unit Insulin Detemir (Levemir) 35 unit SC Q12 [facility] Last Admin: 11/14/17 21:49 Dose: 35 unit Loperamide HCl (Imodium) 1 mg PO Q4H PRN PRN Reason: Diarrhea Last Admin: 11/04/17 21:10 Dose: 1 mg Metoprolol Tartrate (Lopressor) 12.5 mg PEG BID [facility] Last Admin: 11/14/17 18:29 Dose: 12.5 mg Multivitamins (Hexavitamin) 1 tab PEG DAILY [facility] Last Admin: 11/14/17 11:16 Dose: Not Given Rosuvastatin Calcium (Crestor) 10 mg PO HS [facility] Last Admin: 11/14/17 21:44 Dose: 10 mg Saccharomyces Boulardii (Florastor) 250 mg PEG BID [facility] Last Admin: 11/14/17 18:16 Dose: 250 mg Vitamin A (Vitamin A & D Oint Ud Foilpak) 0.5 ea TOP Q1H PRN PRN Reason: Dry skin Last Admin: 11/12/17 09:34 Dose: 0.5 ea - Labs Labs: 11/14/17 06:52 11/14/17 06:52 PT 13.4 SECONDS (9.7-12.2) H 10/14/17 16:30 INR 1.2 10/14/17 16:30 APTT 28 SECONDS (21-34) 10/14/17 16:30
[2017-11-15] MEDS: (Novolog) Insulin Aspart, Recombinant 100 u/ml 10 ml vial SC SCH ×4 (00:16→19:12)
--- NOTE | 2017-11-15 01:41 | PN ---
DATE: INFECTIOUS DISEASE FOLLOWUP SUBJECTIVE: The patient remains on the trach mask. PHYSICAL EXAMINATION NECK: Supple. LUNGS: Clear. Occasional rhonchi. HEART: S1, remains tachy. ABDOMEN: Soft, nontender. Has a PEG tube. EXTREMITIES: Have edema. He has Venodyne. He has foot protectors on. LABORATORY DATA: Labs show white count is 19.9, hemoglobin 10.2, hematocrit 31.7, platelet count is 704. Sodium is 135, potassium 5.7, chloride is 99, still the white count remains high, creatinine is 3.1. ASSESSMENT AND PLAN: The patient is status post tracheostomy. He had Reny glabrata and he still remains on antibiotics as the dialysis catheter was never changed. So I am not sure what to do with him as I am sure it will recur once I remove. The patient is, however, do not resuscitate. Since white count is still elevated, we will continue antibiotics. 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 We will continue antibiotics and we will follow. Allan Lawrence MD
[2017-11-15] MEDS: Imipenem/Cilastatin 500 MG in Dextrose 5% In Water 100 ML IV SCH (06:25)
--- NOTE | 2017-11-15 10:19 | CP.PCM.PN ---
<Aubree García - Last Filed: 11/15/17 14:45> Subjective - Date & Time of Evaluation Date of Evaluation: 11/15/17 Time of Evaluation: 10:18 - Subjective Subjective: Medicine Progress Note: Hospitalist Service Patient seen and examined at bedside. Per nursing no acute events overnight. Patient is awake and alert, however not following commands. ROS unobtainable. Bioethics evaluation in progress. Objective - Vital Signs/Intake and Output Vital Signs (last 24 hours): Temp Pulse Resp BP Pulse Ox 98 F 96 H 20 148/89 95 11/15/17 07:48 11/15/17 07:48 11/15/17 07:48 11/15/17 07:48 11/15/17 07:48 Intake and Output: 11/15/17 11/15/17 06:59 18:59 Intake Total 1270 Output Total 150 Balance 1120 - Medications Medications: Current Medications Ascorbic Acid (Vitamin C 500 Mg Tab) 500 mg PEG DAILY [facility] Last Admin: 11/14/17 11:17 Dose: Not Given Aspirin (Aspirin Chewable) 81 mg PO DAILY [facility] Last Admin: 11/14/17 11:16 Dose: Not Given Calcitriol (Rocaltrol) 0.25 mcg PEG DAILY [facility] Last Admin: 11/14/17 11:17 Dose: Not Given Calcium Acetate (Phoslo) 2,001 mg GT TIDCC [facility] Last Admin: 11/15/17 08:13 Dose: 2,001 mg Epoetin Chencho (Procrit) 10,000 unit IV [facility] Last Admin: 11/14/17 10:32 Dose: 10,000 unit Heparin Sodium (Porcine) (Heparin) 3,700 units IVP [facility] Last Admin: 11/14/17 11:49 Dose: 3,700 units Micafungin Sodium 100 mg/ (Sodium Chloride) 100 mls @ 100 mls/hr IV Q24H [facility] Last Admin: 11/14/17 18:19 Dose: 100 mls/hr Imipenem/Cilastatin Sodium 500 (mg/ Dextrose) 100 mls @ 100 mls/hr IV Q12H [facility] Last Admin: 11/15/17 06:25 Dose: 100 mls/hr Insulin Aspart (Novolog) 0 unit SC Q6 [facility] PRN Reason: Protocol Last Admin: 11/15/17 06:24 Dose: 1 unit Insulin Detemir (Levemir) 35 unit SC Q12 [facility] Last Admin: 11/14/17 21:49 Dose: 35 unit Loperamide HCl (Imodium) 1 mg PO Q4H PRN PRN Reason: Diarrhea Last Admin: 11/04/17 21:10 Dose: 1 mg Metoprolol Tartrate (Lopressor) 12.5 mg PEG BID [facility] Last Admin: 11/14/17 18:29 Dose: 12.5 mg Multivitamins (Hexavitamin) 1 tab PEG DAILY [facility] Last Admin: 11/14/17 11:16 Dose: Not Given Rosuvastatin Calcium (Crestor) 10 mg PO HS [facility] Saccharomyces Boulardii (Florastor) 250 mg PEG BID [facility] Last Admin: 11/14/17 18:16 Dose: 250 mg Vitamin A (Vitamin A & D Oint Ud Foilpak) 0.5 ea TOP Q1H PRN PRN Reason: Dry skin Last Admin: 11/12/17 09:34 Dose: 0.5 ea - Labs Labs: 11/14/17 06:52 11/14/17 06:52 PT 13.4 SECONDS (9.7-12.2) H 10/14/17 16:30 INR 1.2 10/14/17 16:30 APTT 28 SECONDS (21-34) 10/14/17 16:30 - Constitutional Appears: No Acute Distress - Head Exam Head Exam: ATRAUMATIC, NORMAL INSPECTION - Eye Exam Eye Exam: EOMI - ENT Exam ENT Exam: Mucous Membranes Moist - Neck Exam Additional comments: + trach collar - Respiratory Exam Respiratory Exam: Decreased Breath Sounds, NORMAL BREATHING PATTERN - Cardiovascular Exam Cardiovascular Exam: Tachycardia, +S1, +S2. absent: Murmur Additional comments: Permacath located on L chest wall - GI/Abdominal Exam GI & Abdominal Exam: Soft. absent: Guarding, Rigid, Tenderness Additional comments: + peg tube - Rectal Exam Additional comments: + rectal tube - Extremities Exam Extremities Exam: Normal Capillary Refill. absent: Calf Tenderness Additional comments: +right heel ulcer - Back Exam Additional comments: + Sacral decubitus ulcer extending to ischial tuberosities (unstageable) + Bilateral hip ulcers - Neurological Exam Neurological Exam: Alert, Awake - Skin Skin Exam: Normal Color, Warm Assessment and Plan - Assessment and Plan (Free Text) Assessment: 1). Hx Acute Respiratory Failure/ARDS/Cadiac Arrest/NSTEMI * Dr Cortés (cardiology) on the case-->help appreciated * Dr. Mena (pulmonary) on the case-->help appreciated * Code Blue on 08/10: asystole, cardiopulmonary resuscitative measures initiated , requiring 3 epis, bicarbonate, ROSC achieved and intubated and brought to the ICU. Patient has had multiple for hypotension. Latest POLICE CLERK was on 10/14; stable awaiting for tele bed when available. * Atrovent 0.5mg Inhaled RQ6H * Aspirin 81mg PO daily * Lopressor 12.5mg PO BID with holding parameters * Crestor 10mg PO qHS 2). Hx Abnormal Stress Test/AICD/CAD * Dr Cortés (cardiology) on the case-->help appreciated * Dr. Mena (pulmonary) on the case-->help appreciated * Code Blue on 08/10: asystole, cardiopulmonary resuscitative measures initiated , requiring 3 epis, bicarbonate, ROSC achieved and intubated and brought to the ICU. Patient has had multiple for hypotension. Latest POLICE CLERK was on 10/14/17 * Aspirin 81mg PO daily * Lopressor 12.5mg PO BID with holding parameters * Crestor 10mg PO qHS 3). Hx Atrial Flutter: * Stopped Eliquis 10/24/17 secondary significant drop in HgB. Heart Rate is elevated. Ordered for Lopressor 5mg iVX1 on 10/31 * Lopressor 12.5mg PO BID with holding parameters 4). 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 Leukocytosis * Infectious Disease (Dr. Lawrence) on the case-->help appreciated * Blood Culture 10/22/17 is finalized as negative. * Sputum culture 10/14/17 is negative. * Stool cultures 10/20/17 are negative. 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 * Right Arm Midline Tip 10/06/17 culture is negative and removed. Midline Tip Culture 10/26/17 is negative. * Blood Cultures 10/28/17 are negative to date. * Iv ABx: Cefepime (10/12/17 through 10/24/17), Aztreonam (10/13/17 through )), Diflucan (10/14/17 through 10/26/17). * Currently on Meropenem 500 mg IV Q8H (10/28/17), Micofungin 100 mg IV Q24H () * Dr. Lazar spoke with 11/02, she does not want Permacath replaced given cardiac risk for operation/anesthesia. * ID Recommended for permcath and sacral debrdiement by ID, has refused 11/02, and will have to revisit this conversation given elevation in white count * 11/14: will need to f/u with ID, dictated consult not available in regards to if Primaxin to replace Meropenem or not. * 11/15: Leukocytosis improving, will continue to monitor * Sacral ulcer unstagable 6). Hx Pneumonia, Fungemia * ID on the case-->help appreciated * Currently on Primaxin 500 mg IV Q12H (11/14/17-present ), Micofungin 100 mg IV Q24H (10/27/17-present) * ID recommends Permcath to be ex * changed out and sacral debridement; however, has refused, Dr. Lazar had conversation on 11/02 given cardiac risk for invasive operation. * 11/14: will need to f/u with ID, dictated consult not available in regards to if Primaxin to replace Meropenem or not. * Sacral ulcer unstagable 7). Hx HTN: * Continue Lopressor 12.5mg PEG BID with holding parameters 8). Hx CKD on HD . * Family would like to continue HD through current Permacath and declined surgical intervention to change catheter (due to the Blood Culture 10/24/17 being positive for Reny glabrata) as recommended by Vascular Surgery and Infectious Disease. * Dr. Lazar discussed with at bedside 11/02, she continues to deny the exchange secondary to cardiac risk. * Tolerated hemodialysis yesterday * Phoslo 1334mg PO TIDCC * Epocrit 10,000 unit IV MWF 9). Hx DM: * Levemir 35 units [id number] * Monitor accuchecks Q6H * HgbA1c 8.4 10). Hx HLD * Continue Crestor 10mg PO qHS 11). Hx Anemia: * Eliquis stopped 10/24/17 and was transfused 2 units PRBCs. * CBC morning 10/25/17 dropped from 11.2 post trasfusion 10/24/17 to 10.2 morning 10/25/17. * Stool Occult is Positive and GI Dr. Dsouza was reconsulted however no further workup recommended in light of patient current status. * Procrit 10,000 units M-W- * s/p1 unit of PRBC 11/04 given declining H/H * HgB/Hct are currently stable 12). Hx DVT; Left upper Extremity DVT+ * Eliquis stopped 10/24/17 given positive bloody stool * Repeat dopplers LE 08/09/17 are negative for DVT * Left UE Doppler 11/08/17 was POSITIVE for DVTs in Left Brachial and Left Axillary Veins: Can NOT anticoagulate due to history of bleeding (requiring blood transfusion) with anticoagulation 13). Hx UTI: * Yeast on culture 10/24/17. He is currently on Micafungin 100 mg IV Q24H. He may be colonized with this. * ID Recommended for permcath and sacral debridement by ID, has refused 11/02 14). Hx Alzheimer's Dementia * CT head w/o contrast (08/10/17):acute os subacute lacune infarct is not excluded in the left basal ganglia inferiorly with definitive chronic lacune identified in the right basal ganglia superiorly. No acute or subacute lobar brain infarction is appreciable by standard CT criteria. Mild age-related neuro * CT Head w/o contrast (10/14/17): no intracranial mass, hemorrhage, or evidence of acute infarct. 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 Old right external capsule ischemic change. Age related atrophy and chronic microvascular ischemic change * Note: patient does listen to his at bedside sometimes and follows simple commands but not always 15). Hx Sacral Ulcer: * General surgery (Dr. Forbes) on board-->help appreciated * Bone Scan performed 09/17/17 to check for Osteomyelitis at the Sacrum: negative for osteomyelitis * Currently on MediHoney daily, family has declined further debridement by surgery. Wound care on board * Recommended for permcath and sacral debrdiement by ID, has refused 11/02 16). Hx Right Heal Ulcer * Podiatry (Dr. Lundberg) on board-->help appreciated * Prevalon boots * Unstageable * Will reconsult podiatry 17). Hx Elevated LFTs * Normalized; patient is on statin and Micafungin 18). Diarrhea (resolved) * Rectal tube in place * On loperamide PRN 19). Hx Hyponatremia: * Sodium 131 today, will monitor 20). Hx PEG Tube: * Vital 1.5 at 50 ml/hour 21). Hx Hypocalcemia: * Continue Calcitriol 22). Prophylactic Measures: * Started on dialysis 08/15/17 * s/p Right Chest Permcath 08/22/17--->Recommended by ID to exchange out but has refused. Will need to revisit given elevation in WBC * S/P Tracheostomy 08/22/17 * S/P Peg tube placement 08/25/17 * S/p insertion of right posterior chest tube 08/19-->removed 08/24/17 * Passy Skippers Trach placed 09/15/17 * s/p new mid line (left upper extremity) 10/26/17 prior mid line removed and tip sent for culture and was negative. Midline left arm was removed 11/06/17 due to bleeding from site. NO Midline/PICC can be placed on Right UE due to the Right [id number] and can not be placed on the Left UE due to the Left Brachia/ Axillary DVTs * (Jovita Serrano): * Patient is now: DNR * Palliative care on board-->recommending for bioethics consult * Bioethics consult () to evaluate * F/u case management regarding patient's insurance Disposition: Bioethics committee was consulted. Status of insurance is pending. In the process of setting up family meeting to discuss goals of care with patients family members. <Mariangel Lazar V - Last Filed: 11/15/17 21:03> Objective - Vital Signs/Intake and Output Vital Signs (last 24 hours): Temp Pulse Resp BP Pulse Ox 99.4 F 123 H 22 141/72 98 11/15/17 15:00 11/15/17 15:00 11/15/17 15:00 11/15/17 15:00 11/15/17 15:00 Intake and Output: 11/15/17 11/16/17 18:59 06:59 Intake Total 620 Output Total 100 Balance 520 - Medications Medications: Current Medications Ascorbic Acid (Vitamin C 500 Mg Tab) 500 mg PEG DAILY [facility] Last Admin: 11/15/17 10:24 Dose: 500 mg Aspirin (Aspirin Chewable) 81 mg PO DAILY [facility] Last Admin: 11/15/17 10:24 Dose: 81 mg Calcitriol (Rocaltrol) 0.25 mcg PEG DAILY [facility] Last Admin: 11/15/17 10:25 Dose: 0.25 mcg Calcium Acetate (Phoslo) 2,001 mg GT TIDCC [facility] Last Admin: 11/15/17 18:22 Dose: 2,001 mg Epoetin Chencho (Procrit) 10,000 unit IV [facility] Last Admin: 11/14/17 10:32 Dose: 10,000 unit Heparin Sodium (Porcine) (Heparin) 3,700 units IVP [facility] Last Admin: 11/14/17 11:49 Dose: 3,700 units Micafungin Sodium 100 mg/ (Sodium Chloride) 100 mls @ 100 mls/hr IV Q24H [facility] Last Admin: 11/15/17 18:22 Dose: 100 mls/hr Imipenem/Cilastatin Sodium 500 (mg/ Dextrose) 250 mls @ 250 mls/hr IV Q12H [facility] Last Admin: 11/15/17 19:11 Dose: 250 mls/hr Insulin Aspart (Novolog) 0 unit SC Q6 [facility] PRN Reason: Protocol Last Admin: 11/15/17 19:12 Dose: 3 unit Insulin Detemir (Levemir) 35 unit SC Q12 [facility] Last Admin: 11/15/17 10:35 Dose: 35 unit Loperamide HCl (Imodium) 1 mg PO Q4H PRN PRN Reason: Diarrhea Last Admin: 11/04/17 21:10 Dose: 1 mg Metoprolol Tartrate (Lopressor) 12.5 mg PEG BID [facility] Last Admin: 11/15/17 18:22 Dose: 12.5 mg Multivitamins (Hexavitamin) 1 tab PEG DAILY [facility] Last Admin: 11/15/17 10:24 Dose: 1 tab Rosuvastatin Calcium (Crestor) 10 mg PO [facility] Saccharomyces Boulardii (Florastor) 250 mg PEG BID [facility] Last Admin: 11/15/17 18:22 Dose: 250 mg Vitamin A (Vitamin A & D Oint Ud Foilpak) 0.5 ea TOP Q1H PRN PRN Reason: Dry skin Last Admin: 11/15/17 10:25 Dose: 0.5 ea - Labs Labs: 11/15/17 11:51 11/15/17 11:51 PT 13.4 SECONDS (9.7-12.2) H 10/14/17 16:30 INR 1.2 10/14/17 16:30 APTT 28 SECONDS (21-34) 10/14/17 16:30 Attending/Attestation - Attestation I have personally seen and examined this patient.: Yes I have fully participated in the care of the patient.: Yes I have reviewed all pertinent clinical information, including history, physical exam and plan: Yes Notes (Text): Patient seen, examined, and case discussed with day-time resident. Patient's not present at bedside. Patient is awake but not following commands, Unable tot turn patient since he is currently receiving dialysis at beside. Per discussion with dialysis nurse, has had to suction him given he is producing thick secretions. Discussed with Dr. Bowles and in regards to bioethics consult. Will need to arrange family meeting to determine goals of care. Assessment/Plans 1). Hx Acute Respiratory Failure/ARDS/Cadiac Arrest/NSTEMI * Dr Cortés (cardiology) on the case-->help appreciated * Dr. Mena (pulmonary) on the case-->help appreciated * Code Blue on 08/10: asystole, cardiopulmonary resuscitative measures initiated , requiring 3 epis, bicarbonate, ROSC achieved and intubated and brought to the ICU. Patient has had multiple for hypotension. Latest POLICE CLERK was on 10/14; stable awaiting for tele bed when available. * Atrovent 0.5mg Inhaled RQ6H * Aspirin 81mg PO daily * Lopressor 12.5mg PO BID with holding parameters * Midodrine 10mg PO TID * Crestor 10mg PO qHS 2). Hx Abnormal Stress Test/AICD/CAD * Dr Cortés (cardiology) on the case-->help appreciated * Dr. Mena (pulmonary) on the case-->help appreciated * Code Blue on 08/10: asystole, cardiopulmonary resuscitative measures initiated , requiring 3 epis, bicarbonate, ROSC achieved and intubated and brought to the ICU. Patient has had multiple for hypotension. Latest POLICE CLERK was on 10/14/17 * Aspirin 81mg PO daily * Lopressor 12.5mg PO BID with holding parameters * Midodrine 10mg PO TID * Crestor 10mg PO qHS 3). Hx Atrial Flutter: * stopped Eliquis 10/24/17 secondary significant drop in HgB. Heart Rate is elevated. Ordered for Lopressor 5mg iVX1 on 10/31 * Lopressor 12.5mg PO BID with holding parameters 4). Hx Acute on Chronic Sytolic HF * Aspirin 81mg PO daily * Lopressor 12.5mg PO BID with holding parameters * Midodrine 10mg PO TID * Crestor 10mg PO qHS * Lisinopril was discontinued on 10/14/17 at the time of POLICE CLERK for Hypotension 5). Leukocytosis * Infectious Disease (Dr. Lawrence) on the case-->help appreciated * Blood Culture 10/22/17 is finalized as negative. * Sputum culture 10/14/17 is negative. * Stool cultures 10/20/17 are negative. 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 * Right Arm Midline Tip 10/06/17 culture is negative and removed. Midline Tip Culture 10/26/17 is negative. * Blood Cultures 10/28/17 are negative to date. * Iv ABx: Cefepime (10/12/17 through 10/24/17), Aztreonam (10/13/17 through )), Diflucan (10/14/17 through 10/26/17). * Off Meropenem 500 mg IV Q8H (10/28;), Micofungin 100 mg IV Q24H (10/27/17 ) * Started on Primaxin given shortage on Meropenem * I spoke with 11/02, she does not want Permacath replaced given cardiac risk for operation/anesthesia. * ID Recommended for permcath and sacral debrdiement by ID, has refused 11/02, and will have to revisit this conversation given elevation in white count * Sacral ulcer unstagable 6). Hx Pneumonia, Fungemia * ID on the case-->help appreciated * Currently on Meropenem 500 mg IV Q8H (10/28/17-), Micofungin 100 mg IV Q24H ( 10/27/17-present). * Started on Primaxin given shortage on Meropenem * ID recommends Permcath to be changed out and sacral debridement; however, has refused, I had conversation on 11/02; indicated concern given cardiac risk for invasive operation. * Sacral ulcer unstagable 7). Hx HTN: * Lopressor 12.5mg PEG BID with holding parameters 8). Hx CKD on HD --. * Family would like to continue HD through current Permacath and declined surgical intervention to change catheter (due to the Blood Culture 10/24/17 being positive for Reny glabrata) as recommended by Vascular Surgery and Infectious Disease. * Dr. Lazar discussed with at bedside 11/02, she continues to deny the exchange secondary to cardiac risk. * Phoslo 1334mg PO TIDCC * Epocrit 10,000 unit IV MWF 9). Hx DM: * Levemir 35 units [id number] * monitor [id number] * HgbA1c 8.4 10). Hx HLD * Crestor 10mg PO qHS 11). Hx Anemia: * Eliquis stopped 10/24/17 and was transfused 2 units PRBCs. * CBC morning 10/25/17 dropped from 11.2 post trasfusion 10/24/17 to 10.2 morning 10/25/17. * Stool Occult is Positive and GI Dr. Dsouza was reconsulted however no further workup recommended in light of patient current status. * Procrit 10,000 units * s/p1 unit of PRBC 11/04 given declining H/H * HgB/Hct are currently stable 12). Hx DVT; Left upper Extremity DVT+ * Eliquis stopped 10/24/17 given positive bloody stool * Repeat dopplers LE 08/09/17 are negative for DVT * Left UE Doppler 11/08/17 was POSITIVE for DVTs in Left Brachial and Left Axillary Veins: Can NOT anticoagulate due to history of bleeding (requiring blood transfusion) with anticoagulation 13). Hx UTI: * Yeast on culture 10/24/17. He is currently on Micafungin 100 mg IV Q24H. He may be colonized with this. * ID Recommended for permcath and sacral debridement by ID, has refused 11/02 will to revisit this conversation given elevation in white count. 14). Hx Alzheimer's Dementia * CT head w/o contrast (08/10/17):acute os subacute lacune infarct is not excluded in the left basal ganglia inferiorly with definitive chronic lacune identified in the right basal ganglia superiorly. No acute or subacute lobar brain infarction is appreciable by standard CT criteria. Mild age-related neuro * CT Head w/o contrast (10/14/17): no intracranial mass, hemorrhage, or evidence of acute infarct. 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 Old right external capsule ischemic change. Age related atrophy and chronic microvascular ischemic change * Note: patient does listen to his at bedside sometimes and follows simple commands but not always 15). Hx Sacral Ulcer: * General surgery (Dr. Forbes) on board-->help appreciated * Bone Scan performed 09/17/17 to check for Osteomyelitis at the Sacrum: negative for osteomyelitis * Currently on MediHoney daily, family has declined further debridement by surgery. Wound care on board * Recommended for permcath and sacral debrdiement by ID, has refused 11/02 16). Hx Right Heal Ulcer * Podiatry (Dr. Lundberg) on board-->help appreciated * Prevalon boots * unstageable 17). Hx Elevated LFTs * Normalized; patient is on statin and Micafungin 18). Diarrhea: * On Rectal Seal and producing dark brown/black stools that are watery. Stool Studies 10/20/17 are negative * On loperamide PRN 19). Hx Hyponatremia: * Normalized 20). Hx PEG Tube: * Vital 1.5 at 50 ml/hour 21). Hx Hypocalcemia: * Calcitriol 22). Prophylactic Measures: * Vitamin C, Dulcolax PRN, Pepcid, MVI, Zofran PRN, Florastor * Started on dialysis 08/15/17 * s/p Right Chest Permcath 08/22/17--->Recommended by ID to exchange out but has refused. Will need to revisit given elevation in WBC * S/P Tracheostomy 08/22/17 * S/P Peg tube placement 08/25/17 * S/p insertion of right posterior chest tube 08/19-->removed 08/24/17 * Passy Flex Trach placed 09/15/17 * s/p new mid line (left upper extremity) 10/26/17 prior mid line removed and tip sent for culture and was negative. Midline left arm was removed 11/06/17 due to bleeding from site. NO Midline/PICC can be placed on Right UE due to the Right [id number] and can not be placed on the Left UE due to the Left Brachia/ Axillary DVTs * (Jovita Serrano): * Patient is now: DNR * Palliative care on board-->recommending for bioethics consult * Bioethics consult (Sort Line Worker Sue) to evaluate * F/u case management regarding patient's insurance Disposition: Recommended by ID to get sacral debridement and permacath exchange out. I spoke with on Tuesday, 11/02 but had refused. 11/08/17: Per my colleague Dr. eDepthi Barth, who had extensive conversation with today at the time of exam. 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 If debridement did take place then there would be no guarantees that this would improve considering his multiple comorbidities and that this will also likely be extremely painful to patient. Also that if these areas were not debrided, then we ran the risk for sepsis as well osteomyelitis. So unfortunately this placed us between a rock and a hard place concerning this issue. Considering this, I asked her to consider Hospice and explained to her that this would involve discontinuing HD, antibiotics and would involve making him as comfortable as possible. I have reached out to Palliative Care Nurse Domitila and explained to that Nurse Ramesh will speak with her 11/09/17. also asked about the possibility of spinal anesthesia for the debridement and I told her that I would check with the surgery team but also reminded her of the original concerns about patient pain after the procedure and likelihood of lack of improvement considering the multiple comorbidities. 11/09/17: Nurse Ramesh spoke with via phone (concerning what Dr. Deepthi Barth discussed with her in person on 11/08/17) and will meet with her on 11/10. 11/10/17: Nurse Ramesh met with . [place] that may be undocumented and relies on patient's benefits for financial source. Considering my conversation with patient on 11/08/17, Dr. Deepthi Barth have ordered BioEthics consultation for further recommendations. Nurse Ramesh will speak with BioEthics Dr. Renan Bowles whose help will be appreciated concerning this issue. 11/11/17: Awaiting BioEthics evaluation. 11/12/17: Awaiting BioEthics evaluation. 11/13/17: Awaiting BioEthics evaluation. 11/14/17: Bioethic evaluation in progress. 11/15/17: per Bioethics consult: This patient has been here for five months (9 ) to present. He was admitted with shortness of breath and chest pain. Over these months his condition has deteriorated. He is now in need of heavy care. His expressed worry and concern. She agreed to a DNR. The consult involves the conflict of the not agreeing with placing her on comfort care. Bio-ethics committee recommends approaching the family again in light of insurance changes to place the patient in a long-term care facility ( correction), or for the family to prepare for home health care if hospice will not be considered, even though it is thought appropriate for this patient. Will need to arrange a family meeting to determine goals of care and review course of treatment with family.
[2017-11-15] MEDS: Multiple Vitamins Tab PEG SCH (10:24)
[2017-11-15] MEDS: Vitamins A & D Oint UD Foilpak TOP PRN (10:25)
[2017-11-15] MEDS: Insulin Detemir 100 units/ml Vial (Levemir) SC SCH ×2 (10:35→22:44)
[2017-11-15] MEDS: Saccharomyces Boulardi 250 mg Cap PEG SCH ×2 (10:46→18:22)
--- NOTE | 2017-11-15 10:52 | CP.PCM.PN ---
Subjective - Date & Time of Evaluation Date of Evaluation: 11/15/17 Time of Evaluation: 10:50 - Subjective Subjective: no events hd yesterday unremarkable awake, not following commands. unable to obtain ros- non verbal tachycardic Objective - Vital Signs/Intake and Output Vital Signs (last 24 hours): Temp Pulse Resp BP Pulse Ox 98 F 96 H 20 148/89 95 11/15/17 07:48 11/15/17 07:48 11/15/17 07:48 11/15/17 07:48 11/15/17 07:48 Intake and Output: 11/15/17 11/15/17 06:59 18:59 Intake Total 1270 Output Total 150 Balance 1120 - Medications Medications: Current Medications Ascorbic Acid (Vitamin C 500 Mg Tab) 500 mg PEG DAILY [facility] Last Admin: 11/15/17 10:24 Dose: 500 mg Aspirin (Aspirin Chewable) 81 mg PO DAILY [facility] Last Admin: 11/15/17 10:24 Dose: 81 mg Calcitriol (Rocaltrol) 0.25 mcg PEG DAILY [facility] Last Admin: 11/15/17 10:25 Dose: 0.25 mcg Calcium Acetate (Phoslo) 2,001 mg GT TIDCC [facility] Last Admin: 11/15/17 08:13 Dose: 2,001 mg Epoetin Chencho (Procrit) 10,000 unit IV MWF [facility] Last Admin: 11/14/17 10:32 Dose: 10,000 unit Heparin Sodium (Porcine) (Heparin) 3,700 units IVP MWF [facility] Last Admin: 11/14/17 11:49 Dose: 3,700 units Micafungin Sodium 100 mg/ (Sodium Chloride) 100 mls @ 100 mls/hr IV Q24H [facility] Last Admin: 11/14/17 18:19 Dose: 100 mls/hr Imipenem/Cilastatin Sodium 500 (mg/ Dextrose) 100 mls @ 100 mls/hr IV Q12H [facility] Last Admin: 11/15/17 06:25 Dose: 100 mls/hr Insulin Aspart (Novolog) 0 unit SC Q6 [facility] PRN Reason: Protocol Last Admin: 11/15/17 06:24 Dose: 1 unit Insulin Detemir (Levemir) 35 unit SC Q12 [facility] Last Admin: 11/14/17 21:49 Dose: 35 unit Loperamide HCl (Imodium) 1 mg PO Q4H PRN PRN Reason: Diarrhea Last Admin: 11/04/17 21:10 Dose: 1 mg Metoprolol Tartrate (Lopressor) 12.5 mg PEG BID [facility] Last Admin: 11/15/17 10:25 Dose: 12.5 mg Multivitamins (Hexavitamin) 1 tab PEG DAILY [facility] Last Admin: 11/15/17 10:24 Dose: 1 tab Rosuvastatin Calcium (Crestor) 10 mg PO HS [facility] Saccharomyces Boulardii (Florastor) 250 mg PEG BID [facility] Last Admin: 11/14/17 18:16 Dose: 250 mg Vitamin A (Vitamin A & D Oint Ud Foilpak) 0.5 ea TOP Q1H PRN PRN Reason: Dry skin Last Admin: 11/15/17 10:25 Dose: 0.5 ea - Labs Labs: 11/14/17 06:52 11/14/17 06:52 PT 13.4 SECONDS (9.7-12.2) H 10/14/17 16:30 INR 1.2 10/14/17 16:30 APTT 28 SECONDS (21-34) 10/14/17 16:30 - Constitutional Appears: Non-toxic, No Acute Distress, Chronically Ill - Head Exam Head Exam: NORMAL INSPECTION - Eye Exam Eye Exam: Normal appearance - ENT Exam ENT Exam: Mucous Membranes Moist, Normal Exam - Neck Exam Neck Exam: Normal Inspection - Respiratory Exam Respiratory Exam: Decreased Breath Sounds, NORMAL BREATHING PATTERN - Cardiovascular Exam Cardiovascular Exam: Tachycardia, RRR - GI/Abdominal Exam GI & Abdominal Exam: Distended (peg ), Soft - Extremities Exam Extremities Exam: Normal Inspection - Neurological Exam Neurological Exam: Altered, Awake Assessment and Plan (1) Acute on chronic renal failure Status: Resolved (2) CHF (congestive heart failure) Status: Acute (3) History of DVT (deep vein thrombosis) Status: Acute (4) CAD (coronary artery disease) Status: Chronic (5) CKD (chronic kidney disease) Status: Chronic - Assessment and Plan (Free Text) Assessment: maintain hd [facility] jina w/ hd antibiotics supportive care
[2017-11-15 12:04] LABS: EOS # 0.1 K/uL (0.0-0.7); EOS % 0.8 % (0.0-4.0)
[2017-11-15 12:09] LABS: BASO # 0.2 K/uL (0.0-0.2); HEMATOCRIT 29.4 % (35.0-51.0); LYMPH # 1.7 K/uL (1.0-4.3); LYMPH % 10.3 % (20.0-40.0); MEAN CELL VOLUME 91.8 fL (80.0-94.0); MEAN CORPUSCULAR HEMOGLOBIN 29.9 pg (27.0-31.0); MEAN CORPUSCULAR HGB CONC 32.6 g/dL (33.0-37.0); MEAN PLATELET VOLUME 7.4 fL (7.2-11.7); MONO % 6.1 % (0.0-10.0); RED CELL DISTRIBUTION WIDTH 20.5 % (11.5-14.5); WHITE BLOOD COUNT 16.1 K/uL (4.8-10.8)
[2017-11-15 12:23] LABS: ALB/GLOB RATIO 0.8 (1.0-2.1); BILIRUBIN,TOTAL 0.3 mg/dL (0.2-1.3); CALCIUM 7.8 mg/dl (8.6-10.4); POTASSIUM 5.1 mmol/L (3.6-5.2); TOTAL PROTEIN 5.4 g/dL (6.3-8.3)
[2017-11-15] MEDS: Micafungin 100 MG in Sodium Chloride 0.9% 100 ML IV SCH (18:22)
[2017-11-15] MEDS: Imipenem/Cilastatin 500 MG in Dextrose 5% In Water 250 ML IV SCH (19:11)
--- NOTE | 2017-11-15 19:43 | PN ---
SUBJECTIVE: He remains in an isolation room. PHYSICAL EXAMINATION: VITAL SIGNS: T-max is 98, heart rate of 96. He has a tracheal mask. Has a lot of secretions at this time. The granddaughter is sitting at the bedside and she is not talking much. Blood pressure is 148/89, respirations are 20. HEENT: Head is atraumatic. NECK: Supple. LUNGS: Have bilateral rhonchi. HEART: S1, S2 is regular. ABDOMEN: Soft, flabby, nontender. PEG tube present. EXTREMITIES: Have edema. LABORATORY DATA: His white count is 16.1 today, hemoglobin 9.6, hematocrit 29.4, platelet count 586. We will order a sputum culture. Catheter tip was negative. Blood cultures are negative right now. is negative. 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 I am not sure if the family agreed for any catheter change, but the patient's white count had increased. He also had a duplex scan of the upper extremity done on 11/08/2017, but right now we will order a sputum culture as he seems to have a lot of secretions. We will follow. Allan Lawrence MD
--- NOTE | 2017-11-15 21:05 | CP.PCM.PN ---
Subjective - Date & Time of Evaluation Date of Evaluation: 11/15/17 Time of Evaluation: 11:10 - Subjective Subjective: Patient seen and evaluated No new cardiac events Not in distress Objective - Vital Signs/Intake and Output Vital Signs (last 24 hours): Temp Pulse Resp BP Pulse Ox 99.4 F 123 H 22 141/72 98 11/15/17 15:00 11/15/17 15:00 11/15/17 15:00 11/15/17 15:00 11/15/17 15:00 Intake and Output: 11/15/17 11/16/17 18:59 06:59 Intake Total 620 Output Total 100 Balance 520 - Medications Medications: Current Medications Ascorbic Acid (Vitamin C 500 Mg Tab) 500 mg PEG DAILY [facility] Last Admin: 11/15/17 10:24 Dose: 500 mg Aspirin (Aspirin Chewable) 81 mg PO DAILY [facility] Last Admin: 11/15/17 10:24 Dose: 81 mg Calcitriol (Rocaltrol) 0.25 mcg PEG DAILY [facility] Last Admin: 11/15/17 10:25 Dose: 0.25 mcg Calcium Acetate (Phoslo) 2,001 mg GT TIDCC [facility] Last Admin: 11/15/17 18:22 Dose: 2,001 mg Epoetin Chencho (Procrit) 10,000 unit IV F [facility] Last Admin: 11/14/17 10:32 Dose: 10,000 unit Heparin Sodium (Porcine) (Heparin) 3,700 units IVP MWF [facility] Last Admin: 11/14/17 11:49 Dose: 3,700 units Micafungin Sodium 100 mg/ (Sodium Chloride) 100 mls @ 100 mls/hr IV Q24H [facility] Last Admin: 11/15/17 18:22 Dose: 100 mls/hr Imipenem/Cilastatin Sodium 500 (mg/ Dextrose) 250 mls @ 250 mls/hr IV Q12H [facility] Last Admin: 11/15/17 19:11 Dose: 250 mls/hr Insulin Aspart (Novolog) 0 unit SC Q6 [facility] PRN Reason: Protocol Last Admin: 11/15/17 19:12 Dose: 3 unit Insulin Detemir (Levemir) 35 unit SC Q12 [facility] Last Admin: 11/15/17 10:35 Dose: 35 unit Loperamide HCl (Imodium) 1 mg PO Q4H PRN PRN Reason: Diarrhea Last Admin: 11/04/17 21:10 Dose: 1 mg Metoprolol Tartrate (Lopressor) 12.5 mg PEG BID [facility] Last Admin: 11/15/17 18:22 Dose: 12.5 mg Multivitamins (Hexavitamin) 1 tab PEG DAILY [facility] Last Admin: 11/15/17 10:24 Dose: 1 tab Rosuvastatin Calcium (Crestor) 10 mg PO HS [facility] Saccharomyces Boulardii (Florastor) 250 mg PEG BID [facility] Last Admin: 11/15/17 18:22 Dose: 250 mg Vitamin A (Vitamin A & D Oint Ud Foilpak) 0.5 ea TOP Q1H PRN PRN Reason: Dry skin Last Admin: 11/15/17 10:25 Dose: 0.5 ea - Labs Labs: 11/15/17 11:51 11/15/17 11:51 PT 13.4 SECONDS (9.7-12.2) H 10/14/17 16:30 INR 1.2 10/14/17 16:30 APTT 28 SECONDS (21-34) 10/14/17 16:30
[2017-11-16] MEDS: (Novolog) Insulin Aspart, Recombinant 100 u/ml 10 ml vial SC SCH ×4 (01:00→18:37)
[2017-11-16] MEDS: Imipenem/Cilastatin 500 MG in Dextrose 5% In Water 250 ML IV SCH ×2 (06:27→19:23)
--- NOTE | 2017-11-16 07:01 | CP.PCM.PN ---
<Aubree García - Last Filed: 11/16/17 15:45> Subjective - Date & Time of Evaluation Date of Evaluation: 11/16/17 Time of Evaluation: 06:59 - Subjective Subjective: Medicine Progress Note: Hospitalist Service Patient seen and examined at bedside. Per nursing no acute events overnight. Patient is awake and alert. Opens eyes to verbal stimuli, does not follow commands. ROS unobtainable. Going for hemodialysis today. Objective - Vital Signs/Intake and Output Vital Signs (last 24 hours): Temp Pulse Resp BP Pulse Ox 98.6 F 116 H 20 151/82 H 94 L 11/16/17 00:00 11/16/17 00:00 11/16/17 00:00 11/16/17 00:00 11/16/17 00:00 Intake and Output: 11/15/17 11/16/17 18:59 06:59 Intake Total 620 680 Output Total 100 50 Balance 520 630 - Medications Medications: Current Medications Ascorbic Acid (Vitamin C 500 Mg Tab) 500 mg PEG DAILY [facility] Last Admin: 11/15/17 10:24 Dose: 500 mg Aspirin (Aspirin Chewable) 81 mg PO DAILY [facility] Last Admin: 11/15/17 10:24 Dose: 81 mg Calcitriol (Rocaltrol) 0.25 mcg PEG DAILY [facility] Last Admin: 11/15/17 10:25 Dose: 0.25 mcg Calcium Acetate (Phoslo) 2,001 mg GT TIDCC [facility] Last Admin: 11/15/17 18:22 Dose: 2,001 mg Epoetin Chencho (Procrit) 10,000 unit IV [facility] [place] Last Admin: 11/14/17 10:32 Dose: 10,000 unit Heparin Sodium (Porcine) (Heparin) 3,700 units IVP F [facility] Last Admin: 11/14/17 11:49 Dose: 3,700 units Micafungin Sodium 100 mg/ (Sodium Chloride) 100 mls @ 100 mls/hr IV Q24H [facility] Last Admin: 11/15/17 18:22 Dose: 100 mls/hr Imipenem/Cilastatin Sodium 500 (mg/ Dextrose) 250 mls @ 250 mls/hr IV Q12H [facility] Last Admin: 11/16/17 06:27 Dose: 250 mls/hr Insulin Aspart (Novolog) 0 unit SC Q6 [facility] PRN Reason: Protocol Last Admin: 11/16/17 06:42 Dose: 2 unit Insulin Detemir (Levemir) 35 unit SC Q12 [facility] Last Admin: 11/15/17 22:44 Dose: 35 unit Loperamide HCl (Imodium) 1 mg PO Q4H PRN PRN Reason: Diarrhea Last Admin: 11/04/17 21:10 Dose: 1 mg Metoprolol Tartrate (Lopressor) 12.5 mg PEG BID [facility] Last Admin: 11/15/17 18:22 Dose: 12.5 mg Multivitamins (Hexavitamin) 1 tab PEG DAILY [facility] Last Admin: 11/15/17 10:24 Dose: 1 tab Rosuvastatin Calcium (Crestor) 10 mg PO HS [facility] Last Admin: 11/15/17 21:39 Dose: 10 mg Saccharomyces Boulardii (Florastor) 250 mg PEG BID [facility] Last Admin: 11/15/17 18:22 Dose: 250 mg Vitamin A (Vitamin A & D Oint Ud Foilpak) 0.5 ea TOP Q1H PRN PRN Reason: Dry skin Last Admin: 11/15/17 10:25 Dose: 0.5 ea - Labs Labs: 11/15/17 11:51 11/15/17 11:51 PT 13.4 SECONDS (9.7-12.2) H 10/14/17 16:30 INR 1.2 10/14/17 16:30 APTT 28 SECONDS (21-34) 10/14/17 16:30 - Constitutional Appears: No Acute Distress, Older Than Stated Age, Chronically Ill - Head Exam Head Exam: ATRAUMATIC, NORMAL INSPECTION - Eye Exam Eye Exam: Normal appearance - ENT Exam ENT Exam: Mucous Membranes Moist - Neck Exam Additional comments: + trach collar - Respiratory Exam Respiratory Exam: Decreased Breath Sounds, Rhonchi, NORMAL BREATHING PATTERN - Cardiovascular Exam Cardiovascular Exam: Tachycardia Additional comments: Permacath located on right chest wall - GI/Abdominal Exam GI & Abdominal Exam: Soft, Normal Bowel Sounds. absent: Guarding, Rigid, Tenderness Additional comments: +peg tube - Rectal Exam Additional comments: +rectal tube in place - Extremities Exam Extremities Exam: Normal Capillary Refill Additional comments: +right heel ulcer unstageable - Back Exam Additional comments: Unstageable sacral decubitus ulcer that is now extending into ischial tuberosities Bilateral hip ulcers (stage 2) - Neurological Exam Neurological Exam: Alert, Awake - Skin Skin Exam: Normal Color, Warm Assessment and Plan - Assessment and Plan (Free Text) Assessment: 1). Hx Acute Respiratory Failure/ARDS/Cadiac Arrest/NSTEMI * Dr Cortés (cardiology) on the case-->help appreciated * Dr. Mena (pulmonary) on the case-->help appreciated * Code Blue on 08/10: asystole, cardiopulmonary resuscitative measures initiated , requiring 3 epis, bicarbonate, ROSC achieved and intubated and brought to the ICU. Patient has had multiple for hypotension. Latest MOLD CHANGER was on 10/14; stable awaiting for tele bed when available. * Atrovent 0.5mg Inhaled RQ6H * Aspirin 81mg PO daily * Lopressor 12.5mg PO BID with holding parameters * Crestor 10mg PO qHS * Midodrine 10mg TID 2). Hx Abnormal Stress Test/AICD/CAD * Dr Cortés (cardiology) on the case-->help appreciated * Dr. Mena (pulmonary) on the case-->help appreciated * Code Blue on 08/10: asystole, cardiopulmonary resuscitative measures initiated , requiring 3 epis, bicarbonate, ROSC achieved and intubated and brought to the ICU. Patient has had multiple for hypotension. Latest MOLD CHANGER was on 10/14/17 * Aspirin 81mg PO daily * Lopressor 12.5mg PO BID with holding parameters * Crestor 10mg PO qHS * Midodrine 10mg TID 3). Hx Atrial Flutter: * Stopped Eliquis 10/24/17 secondary significant drop in HgB. Heart Rate is elevated. Ordered for Lopressor 5mg iVX1 on 10/31 * Lopressor 12.5mg PO BID with holding parameters 4). 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 Leukocytosis * Infectious Disease (Dr. Lawrence) on the case-->help appreciated * Blood Culture 10/22/17 is finalized as negative. * Sputum culture 10/14/17 is negative. * Stool cultures 10/20/17 are negative. 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 * Right Arm Midline Tip 10/06/17 culture is negative and removed. Midline Tip Culture 10/26/17 is negative. * Blood Cultures 10/28/17 are negative to date. * Iv ABx: Cefepime (10/12/17 through 10/24/17), Aztreonam (10/13/17 through )), Diflucan (10/14/17 through 10/26/17). * Currently on Meropenem 500 mg IV Q8H (10/28/17), Micofungin 100 mg IV Q24H () * Dr. Lazar spoke with 11/02, she does not want Permacath replaced given cardiac risk for operation/anesthesia. * ID Recommended for permcath and sacral debrdiement by ID, has refused 11/02, and will have to revisit this conversation given elevation in white count * 11/14: will need to f/u with ID, dictated consult not available in regards to if Primaxin to replace Meropenem or not. * 11/15: Leukocytosis improving, will continue to monitor * Sacral ulcer unstagable 6). Hx Pneumonia, Fungemia * ID on the case-->help appreciated * Currently on Primaxin 500 mg IV Q12H (11/14/17-present ), Micofungin 100 mg IV Q24H (10/27/17-present) * ID recommends Permcath to be ex * changed out and sacral debridement; however, has refused, Dr. Lazar had conversation on 11/02 given cardiac risk for invasive operation. * 11/14: will need to f/u with ID, dictated consult not available in regards to if Primaxin to replace Meropenem or not. * F/U trach aspirate cultures * Sacral ulcer unstagable 7). Hx HTN: * Continue Lopressor 12.5mg PEG BID with holding parameters 8). Hx CKD on HD . * Family would like to continue HD through current Permacath and declined surgical intervention to change catheter (due to the Blood Culture 10/24/17 being positive for Reny glabrata) as recommended by Vascular Surgery and Infectious Disease. * Dr. Lazar discussed with at bedside 11/02, she continues to deny the exchange secondary to cardiac risk. * Patient going for hemodialysis today * Phoslo 1334mg PO TIDCC * Epocrit 10,000 unit IV MWF 9). Hx DM: * Levemir 35 units [id number] * Monitor accuchecks Q6H * HgbA1c 8.4 10). Hx HLD * Continue Crestor 10mg PO qHS 11). Hx Anemia: * Eliquis stopped 10/24/17 and was transfused 2 units PRBCs. * CBC morning 10/25/17 dropped from 11.2 post trasfusion 10/24/17 to 10.2 morning 10/25/17. * Stool Occult is Positive and GI Dr. Dsouza was reconsulted however no further workup recommended in light of patient current status. * Procrit 10,000 units -W- * s/p1 unit of PRBC 11/04 given declining H/H * HgB/Hct are currently stable * Continue to monitor 12). Hx DVT; Left upper Extremity DVT+ * Eliquis stopped 10/24/17 given positive bloody stool * Repeat dopplers LE 08/09/17 are negative for DVT * Left UE Doppler 11/08/17 was POSITIVE for DVTs in Left Brachial and Left Axillary Veins: Can NOT anticoagulate due to history of bleeding (requiring blood transfusion) with anticoagulation 13). Hx UTI: * Yeast on culture 10/24/17. He is currently on Micafungin 100 mg IV Q24H. He may be colonized with this. * ID Recommended for permcath and sacral debridement by ID, has refused 11/02 14). Hx Alzheimer's Dementia * CT head w/o contrast (08/10/17):acute os subacute lacune infarct is not excluded in the left basal ganglia inferiorly with definitive chronic lacune identified in the right basal ganglia superiorly. No acute or subacute lobar brain infarction is appreciable by standard CT criteria. Mild age-related neuro * CT Head w/o contrast (10/14/17): no intracranial mass, hemorrhage, or evidence of acute infarct. 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 Old right external capsule ischemic change. Age related atrophy and chronic microvascular ischemic change * Note: patient does listen to his at bedside sometimes and follows simple commands but not always 15). Hx Sacral Ulcer: * General surgery (Dr. Forbes) on board-->help appreciated * Bone Scan performed 09/17/17 to check for Osteomyelitis at the Sacrum: negative for osteomyelitis * Currently on MediHoney daily, family has declined further debridement by surgery. Wound care on board * Recommended for permcath and sacral debrdiement by ID, has refused 11/02 16). Hx Right Heal Ulcer * Podiatry (Dr. Lundberg) on board-->help appreciated * Prevalon boots * Unstageable * PT recommending repositioning q2hrs * Podiatry reconsulted, will f/u recommendations 17). Hx Elevated LFTs * Normalized; patient is on statin and Micafungin 18). Diarrhea (resolved) * Rectal tube in place * On loperamide PRN 19). Hx Hyponatremia: Hx of Hyperkalemai * Sodium 130 today, will monitor * Potassium 5.5, will correct in HD today 20). Hx PEG Tube: * Vital 1.5 at 50 ml/hour 21). Hx Hypocalcemia: * Continue Calcitriol 22). Prophylactic Measures: * Started on dialysis 08/15/17 * s/p Right Chest Permcath 08/22/17--->Recommended by ID to exchange out but has refused. Will need to revisit given elevation in WBC * S/P Tracheostomy 08/22/17 * S/P Peg tube placement 08/25/17 * S/p insertion of right posterior chest tube 08/19-->removed 08/24/17 * Passy [place] Trach placed 09/15/17 * s/p new mid line (left upper extremity) 10/26/17 prior mid line removed and tip sent for culture and was negative. Midline left arm was removed 11/06/17 due to bleeding from site. NO Midline/PICC can be placed on Right UE due to the Right [id number] and can not be placed on the Left UE due to the Left Brachia/ Axillary DVTs * (Jovita Serrano): * Patient is now: DNR * Palliative care on board--> recommending for bioethics consult * Bioethics consult () to evaluate * F/u case management regarding patient's insurance Disposition: Bioethics committee was consulted. Status of insurance is pending. Call placed to Maryann (palliative care) in regards to setting up family meeting to discuss goals of care with patients family members. Awaiting call back. <Mariangel Lazar V - Last Filed: 11/16/17 21:04> Objective - Vital Signs/Intake and Output Vital Signs (last 24 hours): Temp Pulse Resp BP Pulse Ox 98.4 F 119 H 22 105/52 L 99 11/16/17 12:20 11/16/17 12:20 11/16/17 12:20 11/16/17 12:20 11/16/17 12:20 Intake and Output: 11/16/17 11/16/17 06:59 18:59 Intake Total 680 870 Output Total 50 100 Balance 630 770 - Medications Medications: Current Medications Ascorbic Acid (Vitamin C 500 Mg Tab) 500 mg PEG DAILY [facility] Last Admin: 11/16/17 09:06 Dose: 500 mg Aspirin (Aspirin Chewable) 81 mg PO DAILY [facility] Last Admin: 11/16/17 09:06 Dose: 81 mg Calcitriol (Rocaltrol) 0.25 mcg PEG DAILY [facility] Last Admin: 11/16/17 10:32 Dose: 0.25 mcg Calcium Acetate (Phoslo) 2,001 mg GT TIDCC [facility] Last Admin: 11/16/17 12:32 Dose: 2,001 mg Epoetin Chencho (Procrit) 10,000 unit IV MWF [facility] Last Admin: 11/16/17 09:49 Dose: 10,000 unit Heparin Sodium (Porcine) (Heparin) 3,700 units IVP MWF [facility] Last Admin: 11/16/17 12:39 Dose: 3,700 units Micafungin Sodium 100 mg/ (Sodium Chloride) 100 mls @ 100 mls/hr IV Q24H [facility] Last Admin: 11/15/17 18:22 Dose: 100 mls/hr Imipenem/Cilastatin Sodium 500 (mg/ Dextrose) 250 mls @ 250 mls/hr IV Q12H [facility] Last Admin: 11/16/17 06:27 Dose: 250 mls/hr Insulin Aspart (Novolog) 0 unit SC Q6 [facility] PRN Reason: Protocol Last Admin: 11/16/17 12:44 Dose: 1 unit Insulin Detemir (Levemir) 35 unit SC Q12 [facility] Last Admin: 11/16/17 10:31 Dose: 35 unit Loperamide HCl (Imodium) 1 mg PO Q4H PRN PRN Reason: Diarrhea Last Admin: 11/04/17 21:10 Dose: 1 mg Metoprolol Tartrate (Lopressor) 12.5 mg PEG BID [facility] Last Admin: 11/16/17 09:06 Dose: Not Given Multivitamins (Hexavitamin) 1 tab PEG DAILY [facility] Last Admin: 11/16/17 09:06 Dose: 1 tab Rosuvastatin Calcium (Crestor) 10 mg PO HS [facility] Last Admin: 11/15/17 21:39 Dose: 10 mg Saccharomyces Boulardii (Florastor) 250 mg PEG BID [facility] Last Admin: 11/16/17 09:06 Dose: 250 mg Vitamin A (Vitamin A & D Oint Ud Foilpak) 0.5 ea TOP Q1H PRN PRN Reason: Dry skin Last Admin: 11/15/17 10:25 Dose: 0.5 ea - Labs Labs: 11/16/17 07:54 11/16/17 07:54 PT 13.4 SECONDS (9.7-12.2) H 10/14/17 16:30 INR 1.2 10/14/17 16:30 APTT 28 SECONDS (21-34) 10/14/17 16:30 Attending/Attestation - Attestation I have personally seen and examined this patient.: Yes I have fully participated in the care of the patient.: Yes I have reviewed all pertinent clinical information, including history, physical exam and plan: Yes Notes (Text): Patient seen, examined, and case discussed with day-time resident. Patient's not present at bedside this morning. Patient seen in dialysis, awake, but does not follow commands and needs suctioning. Will need to arrange family meeting to determine goals of care later this evening. Assessment/Plans 1). Hx Acute Respiratory Failure/ARDS/Cadiac Arrest/NSTEMI: * Dr Cortés (cardiology) on the case-->help appreciated * Dr. Mena (pulmonary) on the case-->help appreciated * Code Blue on 08/10: asystole, cardiopulmonary resuscitative measures initiated , requiring 3 epis, bicarbonate, ROSC achieved and intubated and brought to the ICU. Patient has had multiple for hypotension. Latest MOLD CHANGER was on 10/14--> transferred to [facility] and on the floors. * Atrovent 0.5mg Inhaled RQ6H * Aspirin 81mg PO daily * Lopressor 12.5mg PO BID with holding parameters * Midodrine 10mg PO TID * Crestor 10mg PO qHS 2). Hx Abnormal Stress Test/AICD/CAD: * Dr Cortés (cardiology) on the case-->help appreciated * Dr. Mena (pulmonary) on the case-->help appreciated * Code Blue on 08/10: asystole, cardiopulmonary resuscitative measures initiated , requiring 3 epis, bicarbonate, ROSC achieved and intubated and brought to the ICU. Patient has had multiple for hypotension. Latest MOLD CHANGER was on 10/14/17 * Aspirin 81mg PO daily * Lopressor 12.5mg PO BID with holding parameters * Midodrine 10mg PO TID * Crestor 10mg PO qHS 3). Hx Atrial Flutter: * Lopressor 12.5mg PO BID with holding parameters * Unable to anticoagulate secondary to occult stool blood 4). Hx Acute on Chronic Systolic HF * Aspirin 81mg PO daily * Lopressor 12.5mg PO BID with holding parameters * Midodrine 10mg PO TID * Crestor 10mg PO qHS * Lisinopril was discontinued on 10/14/17 at the time of MOLD CHANGER for Hypotension 5). Leukocytosis * Infectious Disease (Dr. Lawrence) on the case-->help appreciated * Blood Culture 10/22/17 is finalized as negative. * Sputum culture 10/14/17 is negative. * Stool cultures 10/20/17 are negative. 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 * Right Arm Midline Tip 10/06/17 culture is negative and removed. Midline Tip Culture 10/26/17 is negative. * Blood Cultures 10/28/17 are negative to date. * Iv ABx: Cefepime (10/12/17 through 10/24/17), Aztreonam (10/13/17 through )), Diflucan (10/14/17 through 10/26/17). * Off Meropenem 500 mg IV Q8H (10/28;), Micafungin 100 mg IV Q24H (10/27/17 ) * Started on Primaxin given shortage on Meropenem * Primaxin 500mg IVQ12 (active since 11/17/17) * I spoke with 11/02, she does not want Permacath replaced given cardiac risk for operation/anesthesia. * ID Recommended for permcath and sacral debridement by ID, has refused 11/02. * Sacral ulcer unstageable; Wound care is on board 6). Hx Pneumonia, Fungemia * ID on the case-->help appreciated * Currently on Meropenem 500 mg IV Q8H (10/28/17-18), Micofungin 100 mg IV Q24H ( 10/27/17-present). * Started on Primaxin given shortage on Meropenem * Primaxin 500mg IVQ12 (active since 11/17/17) * I spoke with 11/02, she does not want Permacath replaced given cardiac risk for operation/anesthesia. * ID Recommended for permcath and sacral debridement by ID, has refused 11/02. * Sacral ulcer unstageable; Wound care is on board 7). Hx HTN: * Lopressor 12.5mg PEG BID with holding parameters 8). Hx CKD on HD --. * Family would like to continue HD through current Permacath and declined surgical intervention to change catheter (due to the Blood Culture 10/24/17 being positive for Reny glabrata) as recommended by Vascular Surgery and Infectious Disease. * I discussed with at bedside 11/02, she continues to deny the exchange secondary to cardiac risk. * Phoslo 2001mg GT TIDCC * Epocrit 10,000 unit IV MWF 9). Hx DM: * Levemir 35 units [id number] * monitor [id number] * HgbA1c 8.4 10). Hx HLD * Crestor 10mg PO qHS 11). Hx Anemia: * Eliquis stopped 10/24/17 secondary to positive stool occult blood * Stool Occult is Positive and GI Dr. Dsouza was reconsulted however no further workup recommended in light of patient current status. * Procrit 10,000 units -- * s/p1 unit of PRBC 11/04 given declining H/H * HgB/Hct are currently stable 12). Hx DVT; Left upper Extremity DVT+ * Eliquis stopped 10/24/17 given positive bloody stool * Repeat dopplers LE 08/09/17 are negative for DVT * Left UE Doppler 11/08/17 was POSITIVE for DVTs in Left Brachial and Left Axillary Veins: Can NOT anticoagulate due to history of bleeding (requiring blood transfusion) with anticoagulation 13). Hx UTI: * Yeast on culture 10/24/17. He is currently on Micafungin 100 mg IV Q24H. He may be colonized with this. * ID Recommended for permcath and sacral debridement by ID, has refused 11/02. 14). Hx Alzheimer's Dementia * CT head w/o contrast (08/10/17):acute os subacute lacune infarct is not excluded in the left basal ganglia inferiorly with definitive chronic lacune identified in the right basal ganglia superiorly. No acute or subacute lobar brain infarction is appreciable by standard CT criteria. Mild age-related neuro * CT Head w/o contrast (10/14/17): no intracranial mass, hemorrhage, or evidence of acute infarct. 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 Old right external capsule ischemic change. Age related atrophy and chronic microvascular ischemic change 15). Hx Sacral Ulcer: * General surgery (Dr. Forbes) on board-->help appreciated * Bone Scan performed 09/17/17 to check for Osteomyelitis at the Sacrum: negative for osteomyelitis * Currently on MediHoney daily, family has declined further debridement by surgery. Wound care on board * Recommended for permcath and sacral debridement by ID, has refused 11/02 16). Hx Right Heal Ulcer * Podiatry (Dr. Lundberg) on board-->help appreciated * Prevalon boots * unstageable 17). Hx Elevated LFTs * Normalized; patient is on statin and Micafungin 18). Diarrhea: * On Rectal Seal and producing dark brown/black stools that are watery. Stool Studies 10/20/17 are negative * On loperamide PRN 19). Hx Hyponatremia: * Normalized 20). Hx PEG Tube: * Vital 1.5 at 50 ml/hour 21). Hx Hypocalcemia: * Calcitriol 22). Prophylactic Measures: * Vitamin C, Dulcolax PRN, Pepcid, MVI, Zofran PRN, Florastor * Started on dialysis 08/15/17 * s/p Right Chest Permcath 08/22/17--->Recommended by ID to exchange out but has refused. Will need to revisit given elevation in WBC * S/P Tracheostomy 08/22/17 * S/P Peg tube placement 08/25/17 * S/p insertion of right posterior chest tube 08/19-->removed 08/24/17 * Passy Flex Trach placed 09/15/17 * s/p new mid line (left upper extremity) 10/26/17 prior mid line removed and tip sent for culture and was negative. Midline left arm was removed 11/06/17 due to bleeding from site. NO Midline/PICC can be placed on Right UE due to the Right [id number] and can not be placed on the Left UE due to the Left Brachia/ Axillary DVTs * (Jovita Serrano): * Patient is now: DNR * Palliative care on board * Bioethics consult () to evaluated-->notes under patient care * F/u case management regarding patient's insurance and placement 11/08/17: Per my colleague Dr. Deepthi Barth, who had extensive conversation with today at the time of exam. 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 If debridement did take place then there would be no guarantees that this would improve considering his multiple comorbidities and that this will also likely be extremely painful to patient. Also that if these areas were not debrided, then we ran the risk for sepsis as well osteomyelitis. So unfortunately this placed us between a rock and a hard place concerning this issue. Considering this, I asked her to consider Hospice and explained to her that this would involve discontinuing HD, antibiotics and would involve making him as comfortable as possible. I have reached out to Palliative Care Nurse Domitila and explained to that Nurse Ramesh will speak with her 11/09/17. also asked about the possibility of spinal anesthesia for the debridement and I told her that I would check with the surgery team but also reminded her of the original concerns about patient pain after the procedure and likelihood of lack of improvement considering the multiple comorbidities. 11/09/17: Nurse Ramesh spoke with via phone (concerning what Dr. Deepthi Barth discussed with her in person on 11/08/17) and will meet with her on 11/10. 11/10/17: Nurse Ramesh met with . [place] that may be undocumented and relies on patient's benefits for financial source. Considering my conversation with patient on 11/08/17, Dr. Deepthi Barth have ordered BioEthics consultation for further recommendations. Nurse Ramesh will speak with BioEthics Dr. Renan Bowles whose help will be appreciated concerning this issue. 11/11-: Awaiting BioEthics evaluation. 11/15/17: per Bioethics consult: This patient has been here for five months (9 ) to present. He was admitted with shortness of breath and chest pain. Over these months his condition has deteriorated. He is now in need of heavy care. His expressed worry and concern. She agreed to a DNR. The consult involves the conflict of the not agreeing with placing her on comfort care. Bio-ethics committee recommends approaching the family again in light of insurance changes to place the patient in a long-term care facility ( senior living), or for the family to prepare for home health care if hospice will not be considered, even though it is thought appropriate for this patient. 11/16/17 Awaiting family meeting scheduled for this evening with the patient's .
[2017-11-16 08:10] LABS: BASO # 0.1 K/uL (0.0-0.2); BASO % 0.7 % (0.0-2.0); EOS # 0.2 K/uL (0.0-0.7); EOS % 1.2 % (0.0-4.0); HEMATOCRIT 28.9 % (35.0-51.0); LYMPH # 1.6 K/uL (1.0-4.3); LYMPH % 9.7 % (20.0-40.0); MEAN CELL VOLUME 92.2 fL (80.0-94.0); MEAN CORPUSCULAR HEMOGLOBIN 30.3 pg (27.0-31.0); MEAN CORPUSCULAR HGB CONC 32.8 g/dL (33.0-37.0); MEAN PLATELET VOLUME 7.3 fL (7.2-11.7); MONO # 0.9 K/uL (0.0-0.8); MONO % 5.2 % (0.0-10.0); PLATELET COUNT 562 K/uL (130-400); RED CELL DISTRIBUTION WIDTH 20.1 % (11.5-14.5); WHITE BLOOD COUNT 16.5 K/uL (4.8-10.8)
[2017-11-16 08:56] LABS: ALB/GLOB RATIO 0.6 (1.0-2.1); BILIRUBIN,TOTAL 0.4 mg/dL (0.2-1.3); CALCIUM 8.1 mg/dl (8.6-10.4); POTASSIUM 5.5 mmol/L (3.6-5.2); TOTAL PROTEIN 6.2 g/dL (6.3-8.3)
[2017-11-16] MEDS: Multiple Vitamins Tab PEG SCH (09:06)
[2017-11-16] MEDS: Saccharomyces Boulardi 250 mg Cap PEG SCH ×2 (09:06→18:19)
[2017-11-16 09:34] LABS: EOSINOPHIL 1 % (0-4); NEUTROPHIL 90 % (50-75); TOTAL CELLS COUNTED 100
[2017-11-16] MEDS: Epoetin Alfa 10,000 unit/ml Dialysis IV SCH (09:49)
[2017-11-16] MEDS: Insulin Detemir 100 units/ml Vial (Levemir) SC SCH ×2 (10:31→22:05)
--- NOTE | 2017-11-16 11:08 | CP.PCM.PN ---
Subjective - Date & Time of Evaluation Date of Evaluation: 11/16/17 Time of Evaluation: 11:05 - Subjective Subjective: seen and examined on hd bp stable no events non verbal hd planned today Objective - Vital Signs/Intake and Output Vital Signs (last 24 hours): Temp Pulse Resp BP Pulse Ox 98.4 F 118 H 24 134/66 98 11/16/17 09:20 11/16/17 09:20 11/16/17 09:20 11/16/17 10:20 11/16/17 09:20 Intake and Output: 11/16/17 11/16/17 06:59 18:59 Intake Total 680 870 Output Total 50 100 Balance 630 770 - Medications Medications: Current Medications Ascorbic Acid (Vitamin C 500 Mg Tab) 500 mg PEG DAILY [facility] Last Admin: 11/16/17 09:06 Dose: 500 mg Aspirin (Aspirin Chewable) 81 mg PO DAILY [facility] Last Admin: 11/16/17 09:06 Dose: 81 mg Calcitriol (Rocaltrol) 0.25 mcg PEG DAILY [facility] Last Admin: 11/15/17 10:25 Dose: 0.25 mcg Calcium Acetate (Phoslo) 2,001 mg GT TIDCC [facility] Last Admin: 11/16/17 08:38 Dose: 2,001 mg Epoetin Chencho (Procrit) 10,000 unit IV F [facility] Last Admin: 11/16/17 09:49 Dose: 10,000 unit Heparin Sodium (Porcine) (Heparin) 3,700 units IVP MWF [facility] Last Admin: 11/14/17 11:49 Dose: 3,700 units Micafungin Sodium 100 mg/ (Sodium Chloride) 100 mls @ 100 mls/hr IV Q24H [facility] Last Admin: 11/15/17 18:22 Dose: 100 mls/hr Imipenem/Cilastatin Sodium 500 (mg/ Dextrose) 250 mls @ 250 mls/hr IV Q12H [facility] Last Admin: 11/16/17 06:27 Dose: 250 mls/hr Insulin Aspart (Novolog) 0 unit SC Q6 [facility] PRN Reason: Protocol Last Admin: 11/16/17 06:42 Dose: 2 unit Insulin Detemir (Levemir) 35 unit SC Q12 [facility] Last Admin: 11/15/17 22:44 Dose: 35 unit Loperamide HCl (Imodium) 1 mg PO Q4H PRN PRN Reason: Diarrhea Last Admin: 11/04/17 21:10 Dose: 1 mg Metoprolol Tartrate (Lopressor) 12.5 mg PEG BID [facility] Last Admin: 11/16/17 09:06 Dose: Not Given Multivitamins (Hexavitamin) 1 tab PEG DAILY [facility] Last Admin: 11/16/17 09:06 Dose: 1 tab Rosuvastatin Calcium (Crestor) 10 mg PO HS [facility] Last Admin: 11/15/17 21:39 Dose: 10 mg Saccharomyces Boulardii (Florastor) 250 mg PEG BID [facility] Last Admin: 11/16/17 09:06 Dose: 250 mg Vitamin A (Vitamin A & D Oint Ud Foilpak) 0.5 ea TOP Q1H PRN PRN Reason: Dry skin Last Admin: 11/15/17 10:25 Dose: 0.5 ea - Labs Labs: 11/16/17 07:54 11/16/17 07:54 PT 13.4 SECONDS (9.7-12.2) H 10/14/17 16:30 INR 1.2 10/14/17 16:30 APTT 28 SECONDS (21-34) 10/14/17 16:30 - Constitutional Appears: No Acute Distress, Chronically Ill - Head Exam Head Exam: NORMAL INSPECTION - Eye Exam Eye Exam: Normal appearance - ENT Exam Additional comments: mm dry trach to mask - Neck Exam Neck Exam: Normal Inspection - Respiratory Exam Respiratory Exam: Decreased Breath Sounds, NORMAL BREATHING PATTERN - Cardiovascular Exam Cardiovascular Exam: REGULAR RHYTHM - GI/Abdominal Exam GI & Abdominal Exam: Soft, Normal Bowel Sounds (peg) - Extremities Exam Extremities Exam: Normal Inspection - Neurological Exam Neurological Exam: Awake - Skin Skin Exam: Dry Assessment and Plan (1) Acute on chronic renal failure Status: Resolved (2) CHF (congestive heart failure) Status: Acute (3) History of DVT (deep vein thrombosis) Status: Acute (4) CAD (coronary artery disease) Status: Chronic (5) CKD (chronic kidney disease) Status: Chronic - Assessment and Plan (Free Text) Assessment: -hd mwf bp acceptable jina w/ hd
--- NOTE | 2017-11-16 12:08 | CP.PCM.PN ---
Subjective - Date & Time of Evaluation Date of Evaluation: 11/16/17 Time of Evaluation: 12:05 - Subjective Subjective: Podiatry Progress Note for Dr. Lundberg 77 year old male seen at bedside in dialysis regarding chronic right heel ulceration. Patient is seen resting comfortably in bed and asleep during the time of visit.Offloading boots to both feet and dressing clean, dry, intact. Objective - Vital Signs/Intake and Output Vital Signs (last 24 hours): Temp Pulse Resp BP Pulse Ox 98.4 F 118 H 24 108/59 L 98 11/16/17 09:20 11/16/17 09:20 11/16/17 09:20 11/16/17 11:20 11/16/17 09:20 Intake and Output: 11/16/17 11/16/17 06:59 18:59 Intake Total 680 870 Output Total 50 100 Balance 630 770 - Medications Medications: Current Medications Ascorbic Acid (Vitamin C 500 Mg Tab) 500 mg PEG DAILY [facility] Last Admin: 11/16/17 09:06 Dose: 500 mg Aspirin (Aspirin Chewable) 81 mg PO DAILY [facility] Last Admin: 11/16/17 09:06 Dose: 81 mg Calcitriol (Rocaltrol) 0.25 mcg PEG DAILY [facility] Last Admin: 11/15/17 10:25 Dose: 0.25 mcg Calcium Acetate (Phoslo) 2,001 mg GT TIDCC [facility] Last Admin: 11/16/17 08:38 Dose: 2,001 mg Epoetin Chencho (Procrit) 10,000 unit IV [facility] Last Admin: 11/16/17 09:49 Dose: 10,000 unit Heparin Sodium (Porcine) (Heparin) 3,700 units IVP F [facility] Last Admin: 11/14/17 11:49 Dose: 3,700 units Micafungin Sodium 100 mg/ (Sodium Chloride) 100 mls @ 100 mls/hr IV Q24H [facility] Last Admin: 11/15/17 18:22 Dose: 100 mls/hr Imipenem/Cilastatin Sodium 500 (mg/ Dextrose) 250 mls @ 250 mls/hr IV Q12H [facility] Last Admin: 11/16/17 06:27 Dose: 250 mls/hr Insulin Aspart (Novolog) 0 unit SC Q6 [facility] PRN Reason: Protocol Last Admin: 11/16/17 06:42 Dose: 2 unit Insulin Detemir (Levemir) 35 unit SC Q12 [facility] Last Admin: 11/15/17 22:44 Dose: 35 unit Loperamide HCl (Imodium) 1 mg PO Q4H PRN PRN Reason: Diarrhea Last Admin: 11/04/17 21:10 Dose: 1 mg Metoprolol Tartrate (Lopressor) 12.5 mg PEG BID [facility] Last Admin: 11/16/17 09:06 Dose: Not Given Multivitamins (Hexavitamin) 1 tab PEG DAILY [facility] Last Admin: 11/16/17 09:06 Dose: 1 tab Rosuvastatin Calcium (Crestor) 10 mg PO HS [facility] Last Admin: 11/15/17 21:39 Dose: 10 mg Saccharomyces Boulardii (Florastor) 250 mg PEG BID [facility] Last Admin: 11/16/17 09:06 Dose: 250 mg Vitamin A (Vitamin A & D Oint Ud Foilpak) 0.5 ea TOP Q1H PRN PRN Reason: Dry skin Last Admin: 11/15/17 10:25 Dose: 0.5 ea - Labs Labs: 11/16/17 07:54 11/16/17 07:54 PT 13.4 SECONDS (9.7-12.2) H 10/14/17 16:30 INR 1.2 10/14/17 16:30 APTT 28 SECONDS (21-34) 10/14/17 16:30 - Constitutional Appears: Non-toxic, No Acute Distress - Extremities Exam Additional comments: lower extremity focused exam: VASC- DP and PT pulses palpable 1/4 b/l, CFT > 4 seconds all digits, temperature gradient wnl, no edema noted to the LE b/l DERM- Medial aspect of right heel has a non-stageable ulcer with a necrotic eschar, no lincoln wound erythema, no drainage, no malodor, no cellulitis, no odor noted. skin is diffusely xerotic b/l NEURO- pedal sensation grossly diminished ORTHO- no tenderness on palpation to heels b/l Assessment and Plan - Assessment and Plan (Free Text) Assessment: 77 year old male with right heel unstageable ulcer Plan: Patient seen and evaluated at bedside Discussed in detail with attending Dr. Lundberg Labs and vitals reviewed- afebrile, WBC 16.5 Right heel cleasned with saline, DSD applied to right heet Foot wound does not appear clinically infected at this time Offloading boots reapplied, to remain on at all times while patient in bed Podiatry will continue to follow patient
[2017-11-16] MEDS: Micafungin 100 MG in Sodium Chloride 0.9% 100 ML IV SCH (19:02)
[2017-11-16] MEDS: Ipratropium 0.02% Inhal Soln (0.5 mg/2.5 ml) UD IH SCH (19:54)
--- NOTE | 2017-11-16 21:08 | CP.PCM.PN ---
Subjective - Date & Time of Evaluation Date of Evaluation: 11/16/17 Time of Evaluation: 17:30 - Subjective Subjective: Addendum: Medical Attending Note Family meeting at 5:30PM with Chaplain Sue bag worker Glenn, Resident Ricky , with patient's . Assistance with Translation Micky Loya #[id number] Malian Intrepretor.. Reviewed where does the patient go from the hospitalization and available options. Patient's has affirmed with definitive "NO" to surgical intervention which includes debridement of the sacrum, fistula placement, nor exchange out the permacath given the cardiac risk for any operation. This was explained to her very clearly. Patient's has affirmed with definitive "NO" to comfort care and no hospice care. She wants to continue to current therapy including dialysis and trach care treatment. She has affirmed "YES" to DNR. She reports if Gods's will to let him go naturally. Her example she reports if he has a heart attack, let him go. She recalls and reaffirms prior conversations with both my colleague Dr. Cullen Barth and affirms her POLST created with [facility] nurse. She is aware there is pain associated with the sacrum wound. Social Glenn worker explained the options available for the patient as listed as below Options: 1#: higher level facility to provide highly care specialized nursing for trach care and will need close distance to support dialysis 2#: hospice 3#: home. chooses option 1 in light of conversation as stated above in regards to Option 2. Given the great level of care he will need, not bring the patient home , which appears overwhelmed and affirms. has affirmed Option#1. However, decision regards which location is something she needs more time to think about. Social work has discussed in extensive detail in regards to locations in [place] and [place], [place] for trach care and located dialysis center. There is no location in [facility] to support the level care that patient requires; which was explained by the social work. Social work works will try to work with given concerns including transportation, cost, and reports is available to answer any questions. has not made decision, needs time to think about it, will given decision tomorrow. Objective - Vital Signs/Intake and Output Vital Signs (last 24 hours): Temp Pulse Resp BP Pulse Ox 99.7 F H 122 H 21 148/66 96 11/16/17 15:00 11/16/17 15:00 11/16/17 15:00 11/16/17 15:00 11/16/17 15:00 Intake and Output: 11/16/17 11/17/17 18:59 06:59 Intake Total 1390 Output Total 100 Balance 1290 - Medications Medications: Current Medications Ascorbic Acid (Vitamin C 500 Mg Tab) 500 mg PEG DAILY [facility] Last Admin: 11/16/17 09:06 Dose: 500 mg Aspirin (Aspirin Chewable) 81 mg PO DAILY [facility] Last Admin: 11/16/17 09:06 Dose: 81 mg Calcitriol (Rocaltrol) 0.25 mcg PEG DAILY [facility] Last Admin: 11/16/17 10:32 Dose: 0.25 mcg Calcium Acetate (Phoslo) 2,001 mg GT TIDCC [facility] Last Admin: 11/16/17 17:55 Dose: 2,001 mg Epoetin Chencho (Procrit) 10,000 unit IV MWF [facility] Last Admin: 11/16/17 09:49 Dose: 10,000 unit Famotidine (Pepcid) 20 mg PO DAILY [facility] Heparin Sodium (Porcine) (Heparin) 3,700 units IVP MWF [facility] Last Admin: 11/16/17 12:39 Dose: 3,700 units Micafungin Sodium 100 mg/ (Sodium Chloride) 100 mls @ 100 mls/hr IV Q24H [facility] Last Admin: 11/16/17 19:02 Dose: 100 mls/hr Imipenem/Cilastatin Sodium 500 (mg/ Sodium Chloride) 100 mls @ 100 mls/hr IV Q12H [facility] Insulin Aspart (Novolog) 0 unit SC Q6 [facility] PRN Reason: Protocol Last Admin: 11/16/17 18:37 Dose: 1 unit Insulin Detemir (Levemir) 35 unit SC Q12 [facility] Last Admin: 11/16/17 10:31 Dose: 35 unit Ipratropium [place] (Atrovent) 0.5 mg IH RQ6 [facility] Last Admin: 11/16/17 19:54 Dose: 0.5 mg Loperamide HCl (Imodium) 1 mg PO Q4H PRN PRN Reason: Diarrhea Last Admin: 11/04/17 21:10 Dose: 1 mg Metoprolol Tartrate (Lopressor) 12.5 mg PEG BID [facility] Last Admin: 11/16/17 18:20 Dose: 12.5 mg Midodrine (Proamatine) 10 mg PO TID [facility] Last Admin: 11/16/17 18:22 Dose: 10 mg Multivitamins (Hexavitamin) 1 tab PEG DAILY [facility] Last Admin: 11/16/17 09:06 Dose: 1 tab Rosuvastatin Calcium (Crestor) 10 mg PO HS [facility] Last Admin: 11/15/17 21:39 Dose: 10 mg Saccharomyces Boulardii (Florastor) 250 mg PEG BID [facility] Last Admin: 11/16/17 18:19 Dose: 250 mg Vitamin A (Vitamin A & D Oint Ud Foilpak) 0.5 ea TOP Q1H PRN PRN Reason: Dry skin Last Admin: 11/15/17 10:25 Dose: 0.5 ea - Labs Labs: 11/16/17 07:54 11/16/17 07:54 PT 13.4 SECONDS (9.7-12.2) H 10/14/17 16:30 INR 1.2 10/14/17 16:30 APTT 28 SECONDS (21-34) 10/14/17 16:30
--- NOTE | 2017-11-16 23:07 | CP.PCM.PN ---
Subjective - Date & Time of Evaluation Date of Evaluation: 11/16/17 Time of Evaluation: 09:10 - Subjective Subjective: Patient seen and evaluated No new events noted Objective - Vital Signs/Intake and Output Vital Signs (last 24 hours): Temp Pulse Resp BP Pulse Ox 99.7 F H 122 H 21 148/66 96 11/16/17 15:00 11/16/17 15:00 11/16/17 15:00 11/16/17 15:00 11/16/17 15:00 Intake and Output: 11/16/17 11/17/17 18:59 06:59 Intake Total 1390 Output Total 100 Balance 1290 - Medications Medications: Current Medications Ascorbic Acid (Vitamin C 500 Mg Tab) 500 mg PEG DAILY [facility] Last Admin: 11/16/17 09:06 Dose: 500 mg Aspirin (Aspirin Chewable) 81 mg PO DAILY [facility] Last Admin: 11/16/17 09:06 Dose: 81 mg Calcitriol (Rocaltrol) 0.25 mcg PEG DAILY [facility] Last Admin: 11/16/17 10:32 Dose: 0.25 mcg Calcium Acetate (Phoslo) 2,001 mg GT TIDCC [facility] Last Admin: 11/16/17 17:55 Dose: 2,001 mg Epoetin Chencho (Procrit) 10,000 unit IV MWF [facility] Last Admin: 11/16/17 09:49 Dose: 10,000 unit Famotidine (Pepcid) 20 mg PO DAILY [facility] Heparin Sodium (Porcine) (Heparin) 3,700 units IVP MWF [facility] Last Admin: 11/16/17 12:39 Dose: 3,700 units Micafungin Sodium 100 mg/ (Sodium Chloride) 100 mls @ 100 mls/hr IV Q24H [facility] Last Admin: 11/16/17 19:02 Dose: 100 mls/hr Imipenem/Cilastatin Sodium 500 (mg/ Sodium Chloride) 100 mls @ 100 mls/hr IV Q12H [facility] Insulin Aspart (Novolog) 0 unit SC Q6 [facility] PRN Reason: Protocol Last Admin: 11/16/17 18:37 Dose: 1 unit Insulin Detemir (Levemir) 35 unit SC Q12 [facility] Last Admin: 11/16/17 22:05 Dose: 35 unit Ipratropium [place] (Atrovent) 0.5 mg IH RQ6 [facility] Last Admin: 11/16/17 19:54 Dose: 0.5 mg Loperamide HCl (Imodium) 1 mg PO Q4H PRN PRN Reason: Diarrhea Last Admin: 11/04/17 21:10 Dose: 1 mg Metoprolol Tartrate (Lopressor) 12.5 mg PEG BID [facility] Last Admin: 11/16/17 18:20 Dose: 12.5 mg Midodrine (Proamatine) 10 mg PO TID [facility] Last Admin: 11/16/17 18:22 Dose: 10 mg Multivitamins (Hexavitamin) 1 tab PEG DAILY [facility] Last Admin: 11/16/17 09:06 Dose: 1 tab Rosuvastatin Calcium (Crestor) 10 mg PO HS [facility] Last Admin: 11/16/17 22:04 Dose: 10 mg Saccharomyces Boulardii (Florastor) 250 mg PEG BID [facility] Last Admin: 11/16/17 18:19 Dose: 250 mg Vitamin A (Vitamin A & D Oint Ud Foilpak) 0.5 ea TOP Q1H PRN PRN Reason: Dry skin Last Admin: 11/15/17 10:25 Dose: 0.5 ea - Labs Labs: 11/16/17 07:54 11/16/17 07:54 PT 13.4 SECONDS (9.7-12.2) H 10/14/17 16:30 INR 1.2 10/14/17 16:30 APTT 28 SECONDS (21-34) 10/14/17 16:30
[2017-11-17] MEDS: (Novolog) Insulin Aspart, Recombinant 100 u/ml 10 ml vial SC SCH ×3 (00:21→19:27)
[2017-11-17] MEDS: Ipratropium 0.02% Inhal Soln (0.5 mg/2.5 ml) UD IH SCH ×4 (01:25→19:37)
[2017-11-17 08:43] LABS: BASO # 0.1 K/uL (0.0-0.2); BASO % 0.7 % (0.0-2.0); EOS # 0.3 K/uL (0.0-0.7); HEMATOCRIT 29.3 % (35.0-51.0); LYMPH # 1.6 K/uL (1.0-4.3); LYMPH % 10.4 % (20.0-40.0); MEAN CORPUSCULAR HEMOGLOBIN 29.6 pg (27.0-31.0); MEAN CORPUSCULAR HGB CONC 32.2 g/dL (33.0-37.0); MEAN PLATELET VOLUME 7.5 fL (7.2-11.7); MONO # 0.8 K/uL (0.0-0.8); MONO % 5.3 % (0.0-10.0); NRBC % 0.1 % (0.0-2.0); WHITE BLOOD COUNT 15.3 K/uL (4.8-10.8)
[2017-11-17 09:09] LABS: ALB/GLOB RATIO 0.8 (1.0-2.1); BILIRUBIN,TOTAL 0.4 mg/dL (0.2-1.3); CALCIUM 7.8 mg/dl (8.6-10.4); POTASSIUM 5.1 mmol/L (3.6-5.2); TOTAL PROTEIN 5.1 g/dL (6.3-8.3)
[2017-11-17] MEDS: Multiple Vitamins Tab PEG SCH (09:10)
[2017-11-17] MEDS: Saccharomyces Boulardi 250 mg Cap PEG SCH ×2 (09:10→18:25)
[2017-11-17] MEDS: Insulin Detemir 100 units/ml Vial (Levemir) SC SCH ×2 (09:17→21:52)
--- NOTE | 2017-11-17 09:44 | CP.PCM.PN ---
Subjective - Date & Time of Evaluation Date of Evaluation: 11/17/17 Time of Evaluation: 09:43 - Subjective Subjective: seen and examined no events non verbal, ros cannot be obtained trach-o2 mask low na 128 meq/dl noted Objective - Vital Signs/Intake and Output Vital Signs (last 24 hours): Temp Pulse Resp BP Pulse Ox 98.1 F 109 H 20 155/71 H 98 11/17/17 07:57 11/17/17 07:57 11/17/17 07:57 11/17/17 07:57 11/17/17 07:57 Intake and Output: 11/17/17 11/17/17 06:59 18:59 Intake Total 1540 Output Total 450 Balance 1090 - Medications Medications: Current Medications Ascorbic Acid (Vitamin C 500 Mg Tab) 500 mg PEG DAILY [facility] Last Admin: 11/17/17 09:10 Dose: 500 mg Aspirin (Aspirin Chewable) 81 mg PO DAILY [facility] Last Admin: 11/17/17 09:10 Dose: 81 mg Calcitriol (Rocaltrol) 0.25 mcg PEG DAILY [facility] Last Admin: 11/17/17 09:12 Dose: 0.25 mcg Calcium Acetate (Phoslo) 2,001 mg GT TIDCC [facility] Last Admin: 11/17/17 08:59 Dose: 2,001 mg Epoetin Chencho (Procrit) 10,000 unit IV [facility] Last Admin: 11/16/17 09:49 Dose: 10,000 unit Famotidine (Pepcid) 20 mg PO DAILY [facility] Last Admin: 11/17/17 09:10 Dose: 20 mg Heparin Sodium (Porcine) (Heparin) 3,700 units IVP MWF [facility] Last Admin: 11/16/17 12:39 Dose: 3,700 units Micafungin Sodium 100 mg/ (Sodium Chloride) 100 mls @ 100 mls/hr IV Q24H [facility] Last Admin: 11/16/17 19:02 Dose: 100 mls/hr Imipenem/Cilastatin Sodium 500 (mg/ Sodium Chloride) 100 mls @ 100 mls/hr IV Q12H [facility] Last Admin: 11/17/17 06:14 Dose: 100 mls/hr Insulin Aspart (Novolog) 0 unit SC Q6 [facility] PRN Reason: Protocol Last Admin: 11/17/17 06:52 Dose: 2 unit Insulin Detemir (Levemir) 35 unit SC Q12 [facility] Last Admin: 11/17/17 09:17 Dose: 35 unit Ipratropium [place] (Atrovent) 0.5 mg IH RQ6 [facility] Last Admin: 11/17/17 07:23 Dose: 0.5 mg Loperamide HCl (Imodium) 1 mg PO Q4H PRN PRN Reason: Diarrhea Last Admin: 11/04/17 21:10 Dose: 1 mg Metoprolol Tartrate (Lopressor) 12.5 mg PEG BID [facility] Last Admin: 11/17/17 09:10 Dose: 12.5 mg Midodrine (Proamatine) 10 mg PO TID [facility] Last Admin: 11/17/17 09:04 Dose: Not Given Multivitamins (Hexavitamin) 1 tab PEG DAILY [facility] Last Admin: 11/17/17 09:10 Dose: 1 tab Rosuvastatin Calcium (Crestor) 10 mg PO HS [facility] Last Admin: 11/16/17 22:04 Dose: 10 mg Saccharomyces Boulardii (Florastor) 250 mg PEG BID [facility] Last Admin: 11/17/17 09:10 Dose: 250 mg Vitamin A (Vitamin A & D Oint Ud Foilpak) 0.5 ea TOP Q1H PRN PRN Reason: Dry skin Last Admin: 11/15/17 10:25 Dose: 0.5 ea - Labs Labs: 11/17/17 08:33 11/17/17 08:33 PT 13.4 SECONDS (9.7-12.2) H 10/14/17 16:30 INR 1.2 10/14/17 16:30 APTT 28 SECONDS (21-34) 10/14/17 16:30 - Constitutional Appears: Non-toxic, No Acute Distress, Cachectic, Chronically Ill - Head Exam Head Exam: NORMAL INSPECTION - Eye Exam Eye Exam: Normal appearance Pupil Exam: PERRL - ENT Exam ENT Exam: Mucous Membranes Dry - Neck Exam Neck Exam: Normal Inspection (trach-o2 mask) - Respiratory Exam Respiratory Exam: Decreased Breath Sounds, NORMAL BREATHING PATTERN - Cardiovascular Exam Cardiovascular Exam: REGULAR RHYTHM, RRR - GI/Abdominal Exam GI & Abdominal Exam: Distended (g tube), Soft - Extremities Exam Extremities Exam: Normal Inspection - Neurological Exam Neurological Exam: Awake (unable to assess) - Skin Skin Exam: Normal Color Assessment and Plan (1) Acute on chronic renal failure Status: Resolved (2) CHF (congestive heart failure) Status: Acute (3) History of DVT (deep vein thrombosis) Status: Acute (4) CAD (coronary artery disease) Status: Chronic (5) CKD (chronic kidney disease) Status: Chronic - Assessment and Plan (Free Text) Assessment: no free water w/ tube feeds attempt aggressive uf w/ hd as tolerated hd mwf
--- NOTE | 2017-11-17 09:49 | CP.PCM.PN ---
<Aubree García - Last Filed: 11/17/17 09:43> Subjective - Date & Time of Evaluation Date of Evaluation: 11/17/17 Time of Evaluation: 09:43 - Subjective Subjective: Medicine Progress Note: Hospitalist Service Patient seen and examined at bedside. Per nursing no acute events overnight, reports less secretions. Alert and awake, not following commands. ROS not obtained. Family meeting with , Heavy Media Operator Sue and Glenn (social work) took place yesterday evening using [employer] Management Officer #[id number]. Discussed with her goals of care and wants patient [facility]. Objective - Vital Signs/Intake and Output Vital Signs (last 24 hours): Temp Pulse Resp BP Pulse Ox 98.1 F 109 H 20 155/71 H 98 11/17/17 07:57 11/17/17 07:57 11/17/17 07:57 11/17/17 07:57 11/17/17 07:57 Intake and Output: 11/17/17 11/17/17 06:59 18:59 Intake Total 1540 Output Total 450 Balance 1090 - Medications Medications: Current Medications Ascorbic Acid (Vitamin C 500 Mg Tab) 500 mg PEG DAILY [facility] Last Admin: 11/17/17 09:10 Dose: 500 mg Aspirin (Aspirin Chewable) 81 mg PO DAILY [facility] Last Admin: 11/17/17 09:10 Dose: 81 mg Calcitriol (Rocaltrol) 0.25 mcg PEG DAILY [facility] Last Admin: 11/17/17 09:12 Dose: 0.25 mcg Calcium Acetate (Phoslo) 2,001 mg GT TIDCC [facility] Last Admin: 11/17/17 08:59 Dose: 2,001 mg Epoetin [place] (Procrit) 10,000 unit IV [facility] [place] Last Admin: 11/16/17 09:49 Dose: 10,000 unit Famotidine (Pepcid) 20 mg PO DAILY [facility] Last Admin: 11/17/17 09:10 Dose: 20 mg Heparin Sodium (Porcine) (Heparin) 3,700 units IVP [facility] [place] Last Admin: 11/16/17 12:39 Dose: 3,700 units Micafungin Sodium 100 mg/ (Sodium Chloride) 100 mls @ 100 mls/hr IV Q24H [facility] Last Admin: 11/16/17 19:02 Dose: 100 mls/hr Imipenem/Cilastatin Sodium 500 (mg/ Sodium Chloride) 100 mls @ 100 mls/hr IV Q12H [facility] Last Admin: 11/17/17 06:14 Dose: 100 mls/hr Insulin Aspart (Novolog) 0 unit SC Q6 [facility] PRN Reason: Protocol Last Admin: 11/17/17 06:52 Dose: 2 unit Insulin Detemir (Levemir) 35 unit SC Q12 [facility] Last Admin: 11/17/17 09:17 Dose: 35 unit Ipratropium [place] (Atrovent) 0.5 mg IH RQ6 [facility] Last Admin: 11/17/17 07:23 Dose: 0.5 mg Loperamide HCl (Imodium) 1 mg PO Q4H PRN PRN Reason: Diarrhea Last Admin: 11/04/17 21:10 Dose: 1 mg Metoprolol Tartrate (Lopressor) 12.5 mg PEG BID [facility] Last Admin: 11/17/17 09:10 Dose: 12.5 mg Midodrine (Proamatine) 10 mg PO TID [facility] Last Admin: 11/17/17 09:04 Dose: Not Given Multivitamins (Hexavitamin) 1 tab PEG DAILY [facility] Last Admin: 11/17/17 09:10 Dose: 1 tab Rosuvastatin Calcium (Crestor) 10 mg PO HS [facility] Last Admin: 11/16/17 22:04 Dose: 10 mg Saccharomyces Boulardii (Florastor) 250 mg PEG BID [facility] Last Admin: 11/17/17 09:10 Dose: 250 mg Vitamin A (Vitamin A & D Oint Ud Foilpak) 0.5 ea TOP Q1H PRN PRN Reason: Dry skin Last Admin: 11/15/17 10:25 Dose: 0.5 ea - Labs Labs: 11/17/17 08:33 11/17/17 08:33 PT 13.4 SECONDS (9.7-12.2) H 10/14/17 16:30 INR 1.2 10/14/17 16:30 APTT 28 SECONDS (21-34) 10/14/17 16:30 <Mariangel Lazar V - Last Filed: 11/17/17 17:25> Objective - Vital Signs/Intake and Output Vital Signs (last 24 hours): Temp Pulse Resp BP Pulse Ox 98.4 F 120 H 22 153/77 H 98 11/17/17 15:00 11/17/17 15:00 11/17/17 15:00 11/17/17 15:00 11/17/17 15:00 Intake and Output: 11/17/17 11/17/17 06:59 18:59 Intake Total 1540 620 Output Total 450 250 Balance 1090 370 - Medications Medications: Current Medications Ascorbic Acid (Vitamin C 500 Mg Tab) 500 mg PEG DAILY [facility] Last Admin: 11/17/17 09:10 Dose: 500 mg Aspirin (Aspirin Chewable) 81 mg PO DAILY [facility] Last Admin: 11/17/17 09:10 Dose: 81 mg Calcitriol (Rocaltrol) 0.25 mcg PEG DAILY [facility] Last Admin: 11/17/17 09:12 Dose: 0.25 mcg Calcium Acetate (Phoslo) 2,001 mg GT TIDCC [facility] Last Admin: 11/17/17 08:59 Dose: 2,001 mg Epoetin Chen[place] (Procrit) 10,000 unit IV [facility] [place] Last Admin: 11/16/17 09:49 Dose: 10,000 unit Famotidine (Pepcid) 20 mg PO DAILY [facility] Last Admin: 11/17/17 09:10 Dose: 20 mg Heparin Sodium (Porcine) (Heparin) 3,700 units IVP MWF [facility] Last Admin: 11/16/17 12:39 Dose: 3,700 units Micafungin Sodium 100 mg/ (Sodium Chloride) 100 mls @ 100 mls/hr IV Q24H [facility] Last Admin: 11/16/17 19:02 Dose: 100 mls/hr Imipenem/Cilastatin Sodium 500 (mg/ Sodium Chloride) 100 mls @ 100 mls/hr IV Q12H [facility] Last Admin: 11/17/17 06:14 Dose: 100 mls/hr Insulin Aspart (Novolog) 0 unit SC Q6 [facility] PRN Reason: Protocol Last Admin: 11/17/17 06:52 Dose: 2 unit Insulin Detemir (Levemir) 35 unit SC Q12 [facility] Last Admin: 11/17/17 09:17 Dose: 35 unit Ipratropium [place] (Atrovent) 0.5 mg IH RQ6 [facility] Last Admin: 11/17/17 13:34 Dose: 0.5 mg Loperamide HCl (Imodium) 1 mg PO Q4H PRN PRN Reason: Diarrhea Last Admin: 11/04/17 21:10 Dose: 1 mg Metoprolol Tartrate (Lopressor) 12.5 mg PEG BID [facility] Last Admin: 11/17/17 09:10 Dose: 12.5 mg Midodrine (Proamatine) 10 mg PO TID [facility] Last Admin: 11/17/17 14:34 Dose: Not Given Multivitamins (Hexavitamin) 1 tab PEG DAILY [facility] Last Admin: 11/17/17 09:10 Dose: 1 tab Rosuvastatin Calcium (Crestor) 10 mg PO HS [facility] Last Admin: 11/16/17 22:04 Dose: 10 mg Saccharomyces Boulardii (Florastor) 250 mg PEG BID [facility] Last Admin: 11/17/17 09:10 Dose: 250 mg Vitamin A (Vitamin A & D Oint Ud Foilpak) 0.5 ea TOP Q1H PRN PRN Reason: Dry skin Last Admin: 11/15/17 10:25 Dose: 0.5 ea - Labs Labs: 11/17/17 08:33 11/17/17 08:33 PT 13.4 SECONDS (9.7-12.2) H 10/14/17 16:30 INR 1.2 10/14/17 16:30 APTT 28 SECONDS (21-34) 10/14/17 16:30 Attending/Attestation - Attestation I have personally seen and examined this patient.: Yes I have fully participated in the care of the patient.: Yes I have reviewed all pertinent clinical information, including history, physical exam and plan: Yes Notes (Text): This is late computer entry for 11/17/17. Patient seen, examined, and case discussed with day-time resident. Patient's not present at bedside this morning. Patient seen in awake but does not following commands. Needs suctioning given secretions. We are awaiting 's decision in regards to which location for higher care facility supporting trach care and near by dialysis. Assessment/Plans 1). Hx Acute Respiratory Failure/ARDS/[place]ac Arrest/NSTEMI: * Dr Cortés (cardiology) on the case-->help appreciated * Dr. Mena (pulmonary) on the case-->help appreciated * Code Blue on 08/10: asystole, cardiopulmonary resuscitative measures initiated , requiring 3 epis, bicarbonate, ROSC achieved and intubated and brought to the ICU. Patient has had multiple for hypotension. Latest INTERVENTIONAL PHYSICIAN was on 10/14--> transferred to Regular and on the floors. * Atrovent 0.5mg Inhaled RQ6H * Aspirin 81mg PO daily * Lopressor 12.5mg PO BID with holding parameters * Midodrine 10mg PO TID * Crestor 10mg PO qHS 2). Hx Abnormal Stress Test/AICD/CAD: * Dr Cortés (cardiology) on the case-->help appreciated * Dr. Mena (pulmonary) on the case-->help appreciated * Code Blue on 08/10: asystole, cardiopulmonary resuscitative measures initiated , requiring 3 epis, bicarbonate, ROSC achieved and intubated and brought to the ICU. Patient has had multiple for hypotension. Latest INTERVENTIONAL PHYSICIAN was on 10/14/17 * Aspirin 81mg PO daily * Lopressor 12.5mg PO BID with holding parameters * Midodrine 10mg PO TID * Crestor 10mg PO qHS 3). Hx Atrial Flutter: * Lopressor 12.5mg PO BID with holding parameters * Unable to anticoagulate secondary to occult stool blood 4). 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 Leukocytosis * Infectious Disease (Dr. Lawrence) on the case-->help appreciated * Blood Culture 10/22/17 is finalized as negative. * Sputum culture 10/14/17 is negative. * Stool cultures 10/20/17 are negative. 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 * Right Arm Midline Tip 10/06/17 culture is negative and removed. Midline Tip Culture 10/26/17 is negative. * Blood Cultures 10/28/17 are negative to date. * Iv ABx: Cefepime (10/12/17 through 10/24/17), Aztreonam (10/13/17 through )), Diflucan (10/14/17 through 10/26/17). * Off Meropenem 500 mg IV Q8H (10/28;), Micafungin 100 mg IV Q24H (10/27/17 ) * Started on Primaxin given shortage on Meropenem * Primaxin 500mg IVQ12 (active since 11/17/17) * I spoke with 11/02, she does not want Permacath replaced given cardiac risk for operation/anesthesia. * ID Recommended for permcath and sacral debridement by ID, has refused 11/02. * Sacral ulcer unstageable; Wound care is on board 6). Hx Pneumonia, Fungemia * ID on the case-->help appreciated * Currently on Meropenem 500 mg IV Q8H (10/28/17-18), Micofungin 100 mg IV Q24H ( 10/27/17-present). * Started on Primaxin given shortage on Meropenem * Primaxin 500mg IVQ12 (active since 11/17/17) * I spoke with 11/02, she does not want Permacath replaced given cardiac risk for operation/anesthesia. * ID Recommended for permcath and sacral debridement by ID, has refused 11/02. * Sacral ulcer unstageable; Wound care is on board 7). Hx HTN: * Lopressor 12.5mg PEG BID with holding parameters 8). Hx CKD on HD --. * Family would like to continue HD through current Permacath and declined surgical intervention to change catheter (due to the Blood Culture 10/24/17 being positive for Reny glabrata) as recommended by Vascular Surgery and Infectious Disease. * I discussed with at bedside 11/02, she continues to deny the exchange secondary to cardiac risk. * Phoslo 2001mg GT TIDCC * Epocrit 10,000 unit IV MWF 9). Hx DM: * Levemir 35 units [id number] * monitor [id number] * HgbA1c 8.4 10). Hx HLD * Crestor 10mg PO qHS 11). Hx Anemia: * Eliquis stopped 10/24/17 secondary to positive stool occult blood * Stool Occult is Positive and GI Dr. Dsouza was reconsulted however no further workup recommended in light of patient current status. * Procrit 10,000 units -- * s/p1 unit of PRBC 11/04 given declining H/H * HgB/Hct are currently stable 12). Hx DVT; Left upper Extremity DVT+ * Eliquis stopped 10/24/17 given positive bloody stool * Repeat dopplers LE 08/09/17 are negative for DVT * Left UE Doppler 11/08/17 was POSITIVE for DVTs in Left Brachial and Left Axillary Veins: Can NOT anticoagulate due to history of bleeding (requiring blood transfusion) with anticoagulation 13). Hx UTI: * Yeast on culture 10/24/17. He is currently on Micafungin 100 mg IV Q24H. He may be colonized with this. * ID Recommended for permcath and sacral debridement by ID, has refused 11/02. 14). Hx Alzheimer's Dementia * CT head w/o contrast (08/10/17):acute os subacute lacune infarct is not excluded in the left basal ganglia inferiorly with definitive chronic lacune identified in the right basal ganglia superiorly. No acute or subacute lobar brain infarction is appreciable by standard CT criteria. Mild age-related neuro * CT Head w/o contrast (10/14/17): no intracranial mass, hemorrhage, or evidence of acute infarct. 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 Old right external capsule ischemic change. Age related atrophy and chronic microvascular ischemic change 15). Hx Sacral Ulcer: * General surgery (Dr. Forbes) on board-->help appreciated * Bone Scan performed 09/17/17 to check for Osteomyelitis at the Sacrum: negative for osteomyelitis * Currently on MediHoney daily, family has declined further debridement by surgery. Wound care on board * Recommended for permcath and sacral debridement by ID, has refused 11/02 16). Hx Right Heal Ulcer * Podiatry (Dr. Lundberg) on board-->help appreciated * Prevalon boots * unstageable 17). Hx Elevated LFTs * Normalized; patient is on statin and Micafungin 18). Diarrhea: * On Rectal Seal and producing dark brown/black stools that are watery. Stool Studies 10/20/17 are negative * On loperamide PRN 19). Hx Hyponatremia: * Normalized 20). Hx PEG Tube: * Vital 1.5 at 50 ml/hour 21). Hx Hypocalcemia: * Calcitriol 22). Prophylactic Measures: * Vitamin C, Dulcolax PRN, Pepcid, MVI, Zofran PRN, Florastor * Started on dialysis 08/15/17 * s/p Right Chest Permcath 08/22/17--->Recommended by ID to exchange out but has refused. Will need to revisit given elevation in WBC * S/P Tracheostomy 08/22/17 * S/P Peg tube placement 08/25/17 * S/p insertion of right posterior chest tube 08/19-->removed 08/24/17 * Passy Flex Trach placed 09/15/17 * s/p new mid line (left upper extremity) 10/26/17 prior mid line removed and tip sent for culture and was negative. Midline left arm was removed 11/06/17 due to bleeding from site. NO Midline/PICC can be placed on Right UE due to the Right [id number] and can not be placed on the Left UE due to the Left Brachia/ Axillary DVTs * (Jovita Serrano): * Patient is now: DNR * Palliative care on board * Bioethics consult () to evaluated-->notes under patient care * F/u case management regarding patient's insurance and placement 11/08/17: Per my colleague Dr. Deepthi Barth, who had extensive conversation with today at the time of exam. 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 If debridement did take place then there would be no guarantees that this would improve considering his multiple comorbidities and that this will also likely be extremely painful to patient. Also that if these areas were not debrided, then we ran the risk for sepsis as well osteomyelitis. So unfortunately this placed us between a rock and a hard place concerning this issue. Considering this, I asked her to consider Hospice and explained to her that this would involve discontinuing HD, antibiotics and would involve making him as comfortable as possible. I have reached out to Palliative Care Nurse Domitila and explained to that Nurse Ramesh will speak with her 11/09/17. also asked about the possibility of spinal anesthesia for the debridement and I told her that I would check with the surgery team but also reminded her of the original concerns about patient pain after the procedure and likelihood of lack of improvement considering the multiple comorbidities. 11/09/17: Nurse Ramesh spoke with via phone (concerning what Dr. Deepthi Barth discussed with her in person on 11/08/17) and will meet with her on 11/10. 11/10/17: Nurse Ramesh met with . [place] that may be undocumented and relies on patient's benefits for financial source. Considering my conversation with patient on 11/08/17, Dr. Deepthi Barth have ordered BioEthics consultation for further recommendations. Nurse Ramesh will speak with BioEthics Dr. Renan Bowles whose help will be appreciated concerning this issue. 11/11-: Awaiting BioEthics evaluation. 11/15/17: per Bioethics consult: This patient has been here for five months (9 ) to present. He was admitted with shortness of breath and chest pain. Over these months his condition has deteriorated. He is now in need of heavy care. His expressed worry and concern. She agreed to a DNR. The consult involves the conflict of the not agreeing with placing her on comfort care. Bio-ethics committee recommends approaching the family again in light of insurance changes to place the patient in a long-term care facility ( retirement), or for the family to prepare for home health care if hospice will not be considered, even though it is thought appropriate for this patient. 11/16/17: Family meeting at 5:30PM with Heavy Media Operator Sue, feeder worker power unit operator Glenn, Resident Ricky, with patient's . Assistance with Translation Micky Loya #[id number] Maori Intrepretor.. Reviewed where does the patient go from the hospitalization and available options. Patient's has affirmed with definitive "NO" to surgical intervention which includes debridement of the sacrum, fistula placement, nor exchange out the permacath given the cardiac risk for any operation. This was explained to her very clearly. Patient's has affirmed with definitive "NO" to comfort care and no hospice care. She wants to continue to current therapy including dialysis and trach care treatment. She has affirmed "YES" to DNR. She reports if Gods's will to let him go naturally. Her example she reports if he has a heart attack, let him go. She recalls and reaffirms prior conversations with both my colleague Dr. Cullen Barth and affirms her POLST created with Maryann, Palliative Care nurse. She is aware there is pain associated with the sacrum wound. Glenn, feeder worker power unit operator explained the options available for the patient as listed as below Options: 1#: higher level facility to provide highly care specialized nursing for trach care and will need close distance to support dialysis 2#: hospice 3#: home. chooses option 1 in light of conversation as stated above in regards to Option 2. Given the great level of care he will need, not bring the patient home , which appears overwhelmed and affirms. has affirmed Option#1. However, decision regards which location is something she needs more time to think about. Social work has discussed in extensive detail in regards to locations in [place], [place] and [place], [place] for trach care and located dialysis center. There is no location in [facility] to support the level care that patient requires; which was explained by the social work. Social work works will try to work with given concerns including transportation, cost, and reports is available to answer any questions. has not made decision, needs time to think about it, will given decision tomorrow. 11/17/17: We are awaiting 's decision in light of 11/16/17 conversation.
[2017-11-17] MEDS: Micafungin 100 MG in Sodium Chloride 0.9% 100 ML IV SCH (18:26)
--- NOTE | 2017-11-17 20:40 | CP.PCM.PN ---
Subjective - Date & Time of Evaluation Date of Evaluation: 11/17/17 Time of Evaluation: 12:15 - Subjective Subjective: Patient seen and evaluated Comfortable No cardiac events Objective - Vital Signs/Intake and Output Vital Signs (last 24 hours): Temp Pulse Resp BP Pulse Ox 98.4 F 120 H 22 153/77 H 98 11/17/17 15:00 11/17/17 15:00 11/17/17 15:00 11/17/17 15:00 11/17/17 15:00 Intake and Output: 11/17/17 11/18/17 18:59 06:59 Intake Total 620 Output Total 250 Balance 370 - Medications Medications: Current Medications Ascorbic Acid (Vitamin C 500 Mg Tab) 500 mg PEG DAILY [facility] Last Admin: 11/17/17 09:10 Dose: 500 mg Aspirin (Aspirin Chewable) 81 mg PO DAILY [facility] Last Admin: 11/17/17 09:10 Dose: 81 mg Calcitriol (Rocaltrol) 0.25 mcg PEG DAILY [facility] Last Admin: 11/17/17 09:12 Dose: 0.25 mcg Calcium Acetate (Phoslo) 2,001 mg GT TIDCC [facility] Last Admin: 11/17/17 18:25 Dose: 2,001 mg Epoetin Chencho (Procrit) 10,000 unit IV MWF [facility] Last Admin: 11/16/17 09:49 Dose: 10,000 unit Famotidine (Pepcid) 20 mg PO DAILY [facility] Last Admin: 11/17/17 09:10 Dose: 20 mg Heparin Sodium (Porcine) (Heparin) 3,700 units IVP MWF [facility] Last Admin: 11/16/17 12:39 Dose: 3,700 units Micafungin Sodium 100 mg/ (Sodium Chloride) 100 mls @ 100 mls/hr IV Q24H [facility] Last Admin: 11/17/17 18:26 Dose: 100 mls/hr Imipenem/Cilastatin Sodium 500 (mg/ Sodium Chloride) 100 mls @ 100 mls/hr IV Q12H [facility] Last Admin: 11/17/17 19:26 Dose: 100 mls/hr Insulin Aspart (Novolog) 0 unit SC Q6 [facility] PRN Reason: Protocol Last Admin: 11/17/17 19:27 Dose: 2 unit Insulin Detemir (Levemir) 35 unit SC Q12 [facility] Last Admin: 11/17/17 09:17 Dose: 35 unit Ipratropium [place] (Atrovent) 0.5 mg IH RQ6 [facility] Last Admin: 11/17/17 19:37 Dose: 0.5 mg Loperamide HCl (Imodium) 1 mg PO Q4H PRN PRN Reason: Diarrhea Last Admin: 11/04/17 21:10 Dose: 1 mg Metoprolol Tartrate (Lopressor) 12.5 mg PEG BID [facility] Last Admin: 11/17/17 18:25 Dose: 12.5 mg Midodrine (Proamatine) 10 mg PO TID [facility] Last Admin: 11/17/17 18:27 Dose: Not Given Multivitamins (Hexavitamin) 1 tab PEG DAILY [facility] Last Admin: 11/17/17 09:10 Dose: 1 tab Rosuvastatin Calcium (Crestor) 10 mg PO HS [facility] Last Admin: 11/16/17 22:04 Dose: 10 mg Saccharomyces Boulardii (Florastor) 250 mg PEG BID [facility] Last Admin: 11/17/17 18:25 Dose: 250 mg Vitamin A (Vitamin A & D Oint Ud Foilpak) 0.5 ea TOP Q1H PRN PRN Reason: Dry skin Last Admin: 11/15/17 10:25 Dose: 0.5 ea - Labs Labs: 11/17/17 08:33 11/17/17 08:33 PT 13.4 SECONDS (9.7-12.2) H 10/14/17 16:30 INR 1.2 10/14/17 16:30 APTT 28 SECONDS (21-34) 10/14/17 16:30
[2017-11-18] MEDS: (Novolog) Insulin Aspart, Recombinant 100 u/ml 10 ml vial SC SCH ×4 (00:15→18:44)
[2017-11-18] MEDS: Ipratropium 0.02% Inhal Soln (0.5 mg/2.5 ml) UD IH SCH ×3 (01:24→19:09)
[2017-11-18 08:07] LABS: BASO # 0.1 K/uL (0.0-0.2); BASO % 1.1 % (0.0-2.0); EOS # 0.3 K/uL (0.0-0.7); EOS % 2.4 % (0.0-4.0); HEMATOCRIT 30.7 % (35.0-51.0); LYMPH # 1.5 K/uL (1.0-4.3); LYMPH % 11.1 % (20.0-40.0); MEAN CELL VOLUME 93.6 fL (80.0-94.0); MEAN CORPUSCULAR HEMOGLOBIN 29.7 pg (27.0-31.0); MEAN CORPUSCULAR HGB CONC 31.7 g/dL (33.0-37.0); MEAN PLATELET VOLUME 7.1 fL (7.2-11.7); MONO # 0.7 K/uL (0.0-0.8); MONO % 5.1 % (0.0-10.0); NRBC % 0.2 % (0.0-2.0); RED CELL DISTRIBUTION WIDTH 19.8 % (11.5-14.5); WHITE BLOOD COUNT 13.4 K/uL (4.8-10.8)
[2017-11-18 08:55] LABS: ALB/GLOB RATIO 0.6 (1.0-2.1); BILIRUBIN,TOTAL 0.6 mg/dL (0.2-1.3); CALCIUM 8.2 mg/dl (8.6-10.4); POTASSIUM 5.8 mmol/L (3.6-5.2); TOTAL PROTEIN 6.4 g/dL (6.3-8.3)
[2017-11-18] MEDS: Saccharomyces Boulardi 250 mg Cap PEG SCH ×2 (10:44→18:44)
[2017-11-18] MEDS: Multiple Vitamins Tab PEG SCH (10:46)
[2017-11-18] MEDS: Insulin Detemir 100 units/ml Vial (Levemir) SC SCH ×2 (10:46→21:47)
[2017-11-18] MEDS: Epoetin Alfa 10,000 unit/ml Dialysis IV SCH (12:01)
--- NOTE | 2017-11-18 13:20 | CP.PCM.PN ---
Subjective - Date & Time of Evaluation Date of Evaluation: 11/18/17 Time of Evaluation: 13:18 - Subjective Subjective: seen on hd, uf 2.5L tachycardic in 110-120 range no events bp stable unable to obtain ros due to non verbal state Objective - Vital Signs/Intake and Output Vital Signs (last 24 hours): Temp Pulse Resp BP Pulse Ox 98.9 F 121 H 20 116/57 L 98 11/18/17 09:35 11/18/17 12:35 11/18/17 09:35 11/18/17 12:35 11/18/17 09:35 Intake and Output: 11/18/17 11/18/17 06:59 18:59 Intake Total 860 Output Total 150 Balance 710 - Medications Medications: Current Medications Ascorbic Acid (Vitamin C 500 Mg Tab) 500 mg PEG DAILY [facility] Last Admin: 11/18/17 10:44 Dose: 500 mg Aspirin (Aspirin Chewable) 81 mg PO DAILY [facility] Last Admin: 11/18/17 10:45 Dose: 81 mg Calcitriol (Rocaltrol) 0.25 mcg PEG DAILY [facility] Last Admin: 11/18/17 10:46 Dose: 0.25 mcg Calcium Acetate (Phoslo) 2,001 mg GT TIDCC [facility] Last Admin: 11/18/17 12:49 Dose: 2,001 mg Epoetin [place] (Procrit) 10,000 unit IV MWF [facility] Last Admin: 11/18/17 12:01 Dose: 10,000 unit Famotidine (Pepcid) 20 mg PO DAILY [facility] Last Admin: 11/18/17 10:45 Dose: 20 mg Heparin Sodium (Porcine) (Heparin) 3,700 units IVP MWF [facility] Last Admin: 11/18/17 12:24 Dose: 3,700 units Micafungin Sodium 100 mg/ (Sodium Chloride) 100 mls @ 100 mls/hr IV Q24H [facility] Last Admin: 11/17/17 18:26 Dose: 100 mls/hr Imipenem/Cilastatin Sodium 500 (mg/ Sodium Chloride) 100 mls @ 100 mls/hr IV Q12H [facility] Last Admin: 11/18/17 06:00 Dose: 100 mls/hr Insulin Aspart (Novolog) 0 unit SC Q6 [facility] PRN Reason: Protocol Last Admin: 11/18/17 12:46 Dose: 1 unit Insulin Detemir (Levemir) 35 unit SC Q12 [facility] Last Admin: 11/18/17 10:46 Dose: 35 unit Ipratropium [place] (Atrovent) 0.5 mg IH RQ6 [facility] Last Admin: 11/18/17 08:45 Dose: Not Given Loperamide HCl (Imodium) 1 mg PO Q4H PRN PRN Reason: Diarrhea Last Admin: 11/04/17 21:10 Dose: 1 mg Metoprolol Tartrate (Lopressor) 12.5 mg PEG BID [facility] Last Admin: 11/18/17 12:45 Dose: Not Given Midodrine (Proamatine) 10 mg PO TID [facility] Last Admin: 11/18/17 10:46 Dose: Not Given Multivitamins (Hexavitamin) 1 tab PEG DAILY [facility] Last Admin: 11/18/17 10:46 Dose: 1 tab Rosuvastatin Calcium (Crestor) 10 mg PO HS [facility] Last Admin: 11/17/17 21:52 Dose: 10 mg Saccharomyces Boulardii (Florastor) 250 mg PEG BID [facility] Last Admin: 11/18/17 10:44 Dose: 250 mg Vitamin A (Vitamin A & D Oint Ud Foilpak) 0.5 ea TOP Q1H PRN PRN Reason: Dry skin Last Admin: 11/15/17 10:25 Dose: 0.5 ea - Labs Labs: 11/18/17 07:55 11/18/17 08:18 PT 13.4 SECONDS (9.7-12.2) H 10/14/17 16:30 INR 1.2 10/14/17 16:30 APTT 28 SECONDS (21-34) 10/14/17 16:30 - Constitutional Appears: Non-toxic, No Acute Distress, Chronically Ill - Head Exam Head Exam: NORMAL INSPECTION, NORMOCEPHALIC - ENT Exam ENT Exam: Mucous Membranes Dry (trach-o2 mask) - Neck Exam Neck Exam: Normal Inspection - Respiratory Exam Respiratory Exam: Decreased Breath Sounds, NORMAL BREATHING PATTERN - Cardiovascular Exam Cardiovascular Exam: REGULAR RHYTHM, RRR - GI/Abdominal Exam GI & Abdominal Exam: Distended (peg tube), Soft - Extremities Exam Extremities Exam: Normal Capillary Refill, Normal Inspection - Neurological Exam Neurological Exam: Awake. absent: Alert, Oriented x3 - Skin Skin Exam: Normal Color, Warm Assessment and Plan (1) Acute on chronic renal failure Status: Resolved (2) CHF (congestive heart failure) Status: Acute (3) History of DVT (deep vein thrombosis) Status: Acute (4) CAD (coronary artery disease) Status: Chronic (5) CKD (chronic kidney disease) Status: Chronic - Assessment and Plan (Free Text) Assessment: maintain hd 3 times/week avoid hypotonic fluids no free water with tube feeds
--- NOTE | 2017-11-18 16:08 | CP.PCM.PN ---
<Aubree García - Last Filed: 11/18/17 16:23> Subjective - Date & Time of Evaluation Date of Evaluation: 11/18/17 Time of Evaluation: 09:20 - Subjective Subjective: Medicine Progress Note: Hospitalist Service Patient seen and examined at bedside. Per nursing, no acute events overnight. Patient responding to verbal stimuli and following some commands. Was able to open his mouth and stick out his tongue when asked. Patient for dialysis this morning. Still awaiting 's decision in regards to which location for higher care facility supporting trach care and near by dialysis. Objective - Vital Signs/Intake and Output Vital Signs (last 24 hours): Temp Pulse Resp BP Pulse Ox 99.7 F H 125 H 20 142/74 97 11/18/17 15:00 11/18/17 15:00 11/18/17 15:00 11/18/17 15:00 11/18/17 15:00 Intake and Output: 11/18/17 11/18/17 06:59 18:59 Intake Total 860 Output Total 150 Balance 710 - Medications Medications: Current Medications Ascorbic Acid (Vitamin C 500 Mg Tab) 500 mg PEG DAILY [facility] Last Admin: 11/18/17 10:44 Dose: 500 mg Aspirin (Aspirin Chewable) 81 mg PO DAILY [facility] Last Admin: 11/18/17 10:45 Dose: 81 mg Calcitriol (Rocaltrol) 0.25 mcg PEG DAILY [facility] Last Admin: 11/18/17 10:46 Dose: 0.25 mcg Calcium Acetate (Phoslo) 2,001 mg GT TIDCC [facility] Last Admin: 11/18/17 12:49 Dose: 2,001 mg Epoetin Chencho (Procrit) 10,000 unit IV [facility] [place] Last Admin: 11/18/17 12:01 Dose: 10,000 unit Famotidine (Pepcid) 20 mg PO DAILY [facility] Last Admin: 11/18/17 10:45 Dose: 20 mg Heparin Sodium (Porcine) (Heparin) 3,700 units IVP MWF [facility] Last Admin: 11/18/17 12:24 Dose: 3,700 units Micafungin Sodium 100 mg/ (Sodium Chloride) 100 mls @ 100 mls/hr IV Q24H [facility] Last Admin: 11/17/17 18:26 Dose: 100 mls/hr Imipenem/Cilastatin Sodium 500 (mg/ Sodium Chloride) 100 mls @ 100 mls/hr IV Q12H [facility] Last Admin: 11/18/17 06:00 Dose: 100 mls/hr Insulin Aspart (Novolog) 0 unit SC Q6 [facility] FERNANDO PRN Reason: Protocol Last Admin: 11/18/17 12:46 Dose: 1 unit Insulin Detemir (Levemir) 35 unit SC Q12 [facility] Last Admin: 11/18/17 10:46 Dose: 35 unit Ipratropium Moody (Atrovent) 0.5 mg IH RQ6 [facility] Last Admin: 11/18/17 08:45 Dose: Not Given Loperamide HCl (Imodium) 1 mg PO Q4H PRN PRN Reason: Diarrhea Last Admin: 11/04/17 21:10 Dose: 1 mg Metoprolol Tartrate (Lopressor) 12.5 mg PEG BID [facility] Last Admin: 11/18/17 12:45 Dose: Not Given Midodrine (Proamatine) 10 mg PO TID [facility] Last Admin: 11/18/17 14:51 Dose: Not Given Multivitamins (Hexavitamin) 1 tab PEG DAILY [facility] Last Admin: 11/18/17 10:46 Dose: 1 tab Rosuvastatin Calcium (Crestor) 10 mg PO HS [facility] Last Admin: 11/17/17 21:52 Dose: 10 mg Saccharomyces Boulardii (Florastor) 250 mg PEG BID [facility] Last Admin: 11/18/17 10:44 Dose: 250 mg Vitamin A (Vitamin A & D Oint Ud Foilpak) 0.5 ea TOP Q1H PRN PRN Reason: Dry skin Last Admin: 11/15/17 10:25 Dose: 0.5 ea - Labs Labs: 11/18/17 07:55 11/18/17 08:18 PT 13.4 SECONDS (9.7-12.2) H 10/14/17 16:30 INR 1.2 10/14/17 16:30 APTT 28 SECONDS (21-34) 10/14/17 16:30 - Constitutional Appears: No Acute Distress - Head Exam Head Exam: ATRAUMATIC, NORMAL INSPECTION - Eye Exam Eye Exam: EOMI, Normal appearance - ENT Exam ENT Exam: Mucous Membranes Moist - Neck Exam Additional comments: +Trach collar - Respiratory Exam Respiratory Exam: Decreased Breath Sounds, NORMAL BREATHING PATTERN. absent: Rales, Rhonchi, Wheezes - Cardiovascular Exam Cardiovascular Exam: Tachycardia, REGULAR RHYTHM, +S1, +S2 Additional comments: +permacatch on R chest wall - GI/Abdominal Exam GI & Abdominal Exam: Soft. absent: Guarding, Rigid, Tenderness Additional comments: +peg tube - Back Exam Additional comments: Unstageable sacral decubitus ulcer that is now extending into ischial tuberosities Bilateral hip ulcers (stage 2) - Neurological Exam Neurological Exam: Alert, Awake - Psychiatric Exam Psychiatric exam: Normal Affect, Normal Mood - Skin Skin Exam: Dry, Normal Color, Warm Assessment and Plan - Assessment and Plan (Free Text) Assessment: 1). Hx Acute Respiratory Failure/ARDS/Cadiac Arrest/NSTEMI * Dr Cortés (cardiology) on the case-->help appreciated * Dr. Mena (pulmonary) on the case-->help appreciated * Code Blue on 08/10: asystole, cardiopulmonary resuscitative measures initiated , requiring 3 epis, bicarbonate, ROSC achieved and intubated and brought to the ICU. Patient has had multiple for hypotension. Latest AGRICULTURE WORKER was on 10/14; stable awaiting for tele bed when available. * Atrovent 0.5mg Inhaled RQ6H * Aspirin 81mg PO daily * Lopressor 12.5mg PO BID with holding parameters * Crestor 10mg PO qHS * Midodrine 10mg TID 2). Hx Abnormal Stress Test/AICD/CAD * Dr Cortés (cardiology) on the case-->help appreciated * Dr. Mena (pulmonary) on the case-->help appreciated * Code Blue on 08/10: asystole, cardiopulmonary resuscitative measures initiated , requiring 3 epis, bicarbonate, ROSC achieved and intubated and brought to the ICU. Patient has had multiple for hypotension. Latest AGRICULTURE WORKER was on 10/14/17 * Aspirin 81mg PO daily * Lopressor 12.5mg PO BID with holding parameters * Crestor 10mg PO qHS * Midodrine 10mg TID 3). Hx Atrial Flutter: * Stopped Eliquis 10/24/17 secondary significant drop in HgB. Heart Rate is elevated. Ordered for Lopressor 5mg iVX1 on 10/31 * Lopressor 12.5mg PO BID with holding parameters 4). 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 Leukocytosis * Infectious Disease (Dr. Lawrence) on the case-->help appreciated * Blood Culture 10/22/17 is finalized as negative. * Sputum culture 10/14/17 is negative. * Stool cultures 10/20/17 are negative. 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 * Right Arm Midline Tip 10/06/17 culture is negative and removed. Midline Tip Culture 10/26/17 is negative. * Blood Cultures 10/28/17 are negative to date. * Iv ABx: Cefepime (10/12/17 through 10/24/17), Aztreonam (10/13/17 through )), Diflucan (10/14/17 through 10/26/17). * Currently on Meropenem 500 mg IV Q8H (10/28/17), Micofungin 100 mg IV Q24H () * Dr. Lazar spoke with 11/02, she does not want Permacath replaced given cardiac risk for operation/anesthesia. * ID Recommended for permcath and sacral debrdiement by ID, has refused 11/02, and will have to revisit this conversation given elevation in white count * 11/14: will need to f/u with ID, dictated consult not available in regards to if Primaxin to replace Meropenem or not. * 11/15: Leukocytosis improving, will continue to monitor * Sacral ulcer unstagable 6). Hx Pneumonia, Fungemia * ID on the case-->help appreciated * Currently on Primaxin 500 mg IV Q12H (11/14/17-present ), Micofungin 100 mg IV Q24H (10/27/17-present) * changed out and sacral debridement; however, has refused, Dr. Lazar had conversation on 11/02 given cardiac risk for invasive operation. * 11/14: will need to f/u with ID, dictated consult not available in regards to if Primaxin to replace Meropenem or not. * Sputum cx showing no growth * Sacral ulcer unstagable 7). Hx HTN: * Continue Lopressor 12.5mg PEG BID with holding parameters 8). Hx CKD on HD --. * Family would like to continue HD through current Permacath and declined surgical intervention to change catheter (due to the Blood Culture 10/24/17 being positive for Reny glabrata) as recommended by Vascular Surgery and Infectious Disease. * Dr. Lazar discussed with at bedside 11/02, she continues to deny the exchange secondary to cardiac risk. * Patient going for hemodialysis today * Phoslo 1334mg PO TIDCC * Epocrit 10,000 unit IV MWF 9). Hx DM: * Levemir 35 units [id number] * Monitor accuchecks Q6H * HgbA1c 8.4 10). Hx HLD * Continue Crestor 10mg PO qHS 11). Hx Anemia: * Eliquis stopped 10/24/17 and was transfused 2 units PRBCs. * CBC morning 10/25/17 dropped from 11.2 post trasfusion 10/24/17 to 10.2 morning 10/25/17. * Stool Occult is Positive and GI Dr. Dsouza was reconsulted however no further workup recommended in light of patient current status. * Procrit 10,000 units -- * s/p 1 unit of PRBC 11/04 given declining H/H * HgB/Hct are currently stable * Continue to monitor 12). Hx DVT; Left upper Extremity DVT+ * Eliquis stopped 10/24/17 given positive bloody stool * Repeat dopplers LE 08/09/17 are negative for DVT * Left UE Doppler 11/08/17 was POSITIVE for DVTs in Left Brachial and Left Axillary Veins: Can NOT anticoagulate due to history of bleeding (requiring blood transfusion) with anticoagulation 13). Hx UTI: * Yeast on culture 10/24/17. He is currently on Micafungin 100 mg IV Q24H. He may be colonized with this. * ID Recommended for permcath and sacral debridement by ID, has refused 11/02 14). Hx Alzheimer's Dementia * CT head w/o contrast (08/10/17):acute os subacute lacune infarct is not excluded in the left basal ganglia inferiorly with definitive chronic lacune identified in the right basal ganglia superiorly. No acute or subacute lobar brain infarction is appreciable by standard CT criteria. Mild age-related neuro * CT Head w/o contrast (10/14/17): no intracranial mass, hemorrhage, or evidence of acute infarct. 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 Old right external capsule ischemic change. Age related atrophy and chronic microvascular ischemic change * Note: patient does listen to his at bedside sometimes and follows simple commands but not always 15). Hx Sacral Ulcer: * General surgery (Dr. Forbes) on board-->help appreciated * Bone Scan performed 09/17/17 to check for Osteomyelitis at the Sacrum: negative for osteomyelitis * Currently on MediHoney daily, family has declined further debridement by surgery. Wound care on board * Recommended for permcath and sacral debrdiement by ID, has refused 11/02 16). Hx Right Heal Ulcer * Podiatry (Dr. Lundberg) on board-->help appreciated * Prevalon boots * Unstageable * PT recommending repositioning q2hrs 17). Hx Elevated LFTs * Normalized; patient is on statin and Micafungin 18). Diarrhea (resolved) * Rectal tube in place * On loperamide PRN 19). Hx Hyponatremia: Hx of Hyperkalemai * Sodium 128 today, will monitor * Potassium 5.8, will correct in HD today 20). Hx PEG Tube: * Vital 1.5 at 50 ml/hour 21). Hx Hypocalcemia: * Continue Calcitriol 22). Prophylactic Measures: * Started on dialysis 08/15/17 * s/p Right Chest Permcath 08/22/17--->Recommended by ID to exchange out but has refused. Will need to revisit given elevation in WBC * S/P Tracheostomy 08/22/17 * S/P Peg tube placement 08/25/17 * S/p insertion of right posterior chest tube 08/19-->removed 08/24/17 * Passy Monona Trach placed 09/15/17 * s/p new mid line (left upper extremity) 10/26/17 prior mid line removed and tip sent for culture and was negative. Midline left arm was removed 11/06/17 due to bleeding from site. NO Midline/PICC can be placed on Right UE due to the Right [id number]-[id number]-Aslh and can not be placed on the Left UE due to the Left Brachia/ Axillary DVTs * (Jovita Serrano): * Patient is now: DNR * Palliative care on board--> recommending for bioethics consult * Bioethics consult () to evaluate * F/u case management regarding patient's insurance Disposition: Family meeting with , Dr Lazar, and Glenn ( social work) took place on Tuesday11/16/17. Still awaiting 's decision on placement. <Mariangel Lazar V - Last Filed: 11/20/17 16:38> Objective - Vital Signs/Intake and Output Vital Signs (last 24 hours): Temp Pulse Resp BP Pulse Ox 98.9 F 122 H 20 146/82 94 L 11/20/17 15:00 11/20/17 15:00 11/20/17 15:00 11/20/17 07:59 11/20/17 15:00 Intake and Output: 11/20/17 11/20/17 06:59 18:59 Intake Total 760 1420 Output Total 350 400 Balance 410 1020 - Medications Medications: Current Medications Ascorbic Acid (Vitamin C 500 Mg Tab) 500 mg PEG DAILY [facility] Last Admin: 11/20/17 09:48 Dose: 500 mg Aspirin (Aspirin Chewable) 81 mg PO DAILY [facility] Last Admin: 11/20/17 09:48 Dose: 81 mg Calcitriol (Rocaltrol) 0.25 mcg PEG DAILY [facility] Last Admin: 11/20/17 10:51 Dose: 0.25 mcg Calcium Acetate (Phoslo) 2,001 mg GT TIDCC [facility] Last Admin: 11/20/17 13:10 Dose: 2,001 mg Epoetin Chencho (Procrit) 10,000 unit IV MWF [facility] Last Admin: 11/18/17 12:01 Dose: 10,000 unit Famotidine (Pepcid) 20 mg PEG DAILY [facility] Last Admin: 11/20/17 09:48 Dose: 20 mg Imipenem/Cilastatin Sodium 500 (mg/ Sodium Chloride) 100 mls @ 100 mls/hr IV Q12H [facility] Last Admin: 11/20/17 06:04 Dose: 100 mls/hr Insulin Aspart (Novolog) 0 unit SC Q6 [facility] PRN Reason: Protocol Last Admin: 11/20/17 13:09 Dose: 3 unit Insulin Detemir (Levemir) 35 unit SC Q12 [facility] Last Admin: 11/20/17 10:50 Dose: 35 unit Ipratropium Moody (Atrovent) 0.5 mg IH RQ6 [facility] Last Admin: 11/20/17 14:11 Dose: 0.5 mg Loperamide HCl (Imodium) 1 mg PO Q4H PRN PRN Reason: Diarrhea Last Admin: 11/04/17 21:10 Dose: 1 mg Midodrine (Proamatine) 10 mg PO TID [facility] Last Admin: 11/20/17 15:16 Dose: Not Given Multivitamins (Hexavitamin) 1 tab PEG DAILY [facility] Last Admin: 11/20/17 09:48 Dose: 1 tab Rosuvastatin Calcium (Crestor) 10 mg PEG HS [facility] Last Admin: 11/19/17 22:01 Dose: 10 mg Saccharomyces Boulardii (Florastor) 250 mg PEG BID [facility] Last Admin: 11/20/17 09:48 Dose: 250 mg Vitamin A (Vitamin A & D Oint Ud Foilpak) 0.5 ea TOP Q1H PRN PRN Reason: Dry skin Last Admin: 11/15/17 10:25 Dose: 0.5 ea - Labs Labs: 11/20/17 11:00 11/20/17 11:00 PT 13.4 SECONDS (9.7-12.2) H 10/14/17 16:30 INR 1.2 10/14/17 16:30 APTT 28 SECONDS (21-34) 10/14/17 16:30 Attending/Attestation - Attestation I have personally seen and examined this patient.: Yes I have fully participated in the care of the patient.: Yes I have reviewed all pertinent clinical information, including history, physical exam and plan: Yes Notes (Text): This is a late computer entry for 11/18/2017. Patient seen, examined, and case discussed with daytime resident. There is no acute changes to care. I have spoken with case management however we have not heard from patient's for final decision in regards to placement for the patient. We'll continue to follow. Assessment/Plans 1). Hx Acute Respiratory Failure/ARDS/Cadiac Arrest/NSTEMI: * Dr Cortés (cardiology) on the case-->help appreciated * Dr. Mena (pulmonary) on the case-->help appreciated * Code Blue on 08/10: asystole, cardiopulmonary resuscitative measures initiated , requiring 3 epis, bicarbonate, ROSC achieved and intubated and brought to the ICU. Patient has had multiple for hypotension. Latest AGRICULTURE WORKER was on 10/14--> transferred to [facility] and on the floors. * Atrovent 0.5mg Inhaled RQ6H * Aspirin 81mg PO daily * Lopressor 12.5mg PO BID with holding parameters * Midodrine 10mg PO TID * Crestor 10mg PO qHS 2). Hx Abnormal Stress Test/AICD/CAD: * Dr Cortés (cardiology) on the case-->help appreciated * Dr. Mena (pulmonary) on the case-->help appreciated * Code Blue on 08/10: asystole, cardiopulmonary resuscitative measures initiated , requiring 3 epis, bicarbonate, ROSC achieved and intubated and brought to the ICU. Patient has had multiple for hypotension. Latest AGRICULTURE WORKER was on 10/14/17 * Aspirin 81mg PO daily * Lopressor 12.5mg PO BID with holding parameters * Midodrine 10mg PO TID * Crestor 10mg PO qHS 3). Hx Atrial Flutter: * Lopressor 12.5mg PO BID with holding parameters * Unable to anticoagulate secondary to occult stool blood 4). Hx Acute on Chronic Systolic HF * Aspirin 81mg PO daily * Lopressor 12.5mg PO BID with holding parameters * Midodrine 10mg PO TID * Crestor 10mg PO qHS * Lisinopril was discontinued on 10/14/17 at the time of AGRICULTURE WORKER for Hypotension 5). Leukocytosis * Infectious Disease (Dr. Lawrence) on the case-->help appreciated * Blood Culture 10/22/17 is finalized as negative. * Sputum culture 10/14/17 is negative. * Stool cultures 10/20/17 are negative. 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 * Right Arm Midline Tip 10/06/17 culture is negative and removed. Midline Tip Culture 10/26/17 is negative. * Blood Cultures 10/28/17 are negative to date. * Iv ABx: Cefepime (10/12/17 through 10/24/17), Aztreonam (10/13/17 through )), Diflucan (10/14/17 through 10/26/17). * Off Meropenem 500 mg IV Q8H (10/28;), Micafungin 100 mg IV Q24H (10/27/17 ) * Started on Primaxin given shortage on Meropenem * Primaxin 500mg IVQ12 (active since 11/17/17) * I spoke with 11/02, she does not want Permacath replaced given cardiac risk for operation/anesthesia and reaffirmed on 11/16. * ID Recommended for permcath and sacral debridement by ID, has refused 11/02. * Sacral ulcer unstageable; Wound care is on board 6). Hx Pneumonia, Fungemia * ID on the case-->help appreciated * Currently on Meropenem 500 mg IV Q8H (10/28/17-), Micofungin 100 mg IV Q24H ( 10/27/17-present). * Started on Primaxin given shortage on Meropenem * Primaxin 500mg IVQ12 (active since 11/17/17) * I spoke with 11/02, she does not want Permacath replaced given cardiac risk for operation/anesthesia. * ID Recommended for permcath and sacral debridement by ID, has refused 11/02 and 11/16. * Sacral ulcer unstageable; Wound care is on board 7). Hx HTN: * Lopressor 12.5mg PEG BID with holding parameters 8). Hx CKD on HD --. * Family would like to continue HD through current Permacath and declined surgical intervention to change catheter (due to the Blood Culture 10/24/17 being positive for Reny glabrata) as recommended by Vascular Surgery and Infectious Disease. * I discussed with at bedside 11/02, she continues to deny the exchange secondary to cardiac risk. * Phoslo 2001mg GT TIDCC * Epocrit 10,000 unit IV MWF 9). Hx DM: * Levemir 35 units [id number] * monitor [id number] * HgbA1c 8.4 10). Hx HLD * Crestor 10mg PO qHS 11). Hx Anemia: * Eliquis stopped 10/24/17 secondary to positive stool occult blood * Stool Occult is Positive and GI Dr. Dsouza was reconsulted however no further workup recommended in light of patient current status. * Procrit 10,000 units M-W- * s/p1 unit of PRBC 11/04 given declining H/H * HgB/Hct are currently stable 12). Hx DVT; Left upper Extremity DVT+ * Eliquis stopped 10/24/17 given positive bloody stool * Repeat dopplers LE 08/09/17 are negative for DVT * Left UE Doppler 11/08/17 was POSITIVE for DVTs in Left Brachial and Left Axillary Veins: Can NOT anticoagulate due to history of bleeding (requiring blood transfusion) with anticoagulation 13). Hx UTI: * Yeast on culture 10/24/17. He is currently on Micafungin 100 mg IV Q24H. He may be colonized with this. * ID Recommended for permcath and sacral debridement by ID, has refused 11/02 and confirmed 11/16 14). Hx Alzheimer's Dementia * CT head w/o contrast (08/10/17):acute os subacute lacune infarct is not excluded in the left basal ganglia inferiorly with definitive chronic lacune identified in the right basal ganglia superiorly. No acute or subacute lobar brain infarction is appreciable by standard CT criteria. Mild age-related neuro * CT Head w/o contrast (10/14/17): no intracranial mass, hemorrhage, or evidence of acute infarct. 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 Old right external capsule ischemic change. Age related atrophy and chronic microvascular ischemic change 15). Hx Sacral Ulcer: * General surgery (Dr. Forbes) on board-->help appreciated * Bone Scan performed 09/17/17 to check for Osteomyelitis at the Sacrum: negative for osteomyelitis * Currently on MediHoney daily, family has declined further debridement by surgery. Wound care on board * Recommended for permcath and sacral debridement by ID, has refused 11/02 16). Hx Right Heal Ulcer * Podiatry (Dr. Lundberg) on board-->help appreciated * Prevalon boots * unstageable 17). Hx Elevated LFTs * Normalized; patient is on statin and Micafungin 18). Diarrhea: * On Rectal Seal and producing dark brown/black stools that are watery. Stool Studies 10/20/17 are negative * On loperamide PRN 19). Hx Hyponatremia: * Normalized 20). Hx PEG Tube: * Vital 1.5 at 50 ml/hour 21). Hx Hypocalcemia: * Calcitriol 22). Prophylactic Measures: * Vitamin C, Dulcolax PRN, Pepcid, MVI, Zofran PRN, Florastor * Started on dialysis 08/15/17 * s/p Right Chest Permcath 08/22/17--->Recommended by ID to exchange out but has refused. Reaffirmed on 11/16/17 conversation. * S/P Tracheostomy 08/22/17 * S/P Peg tube placement 08/25/17 * S/p insertion of right posterior chest tube 08/19-->removed 08/24/17 * Passy Monona Trach placed 09/15/17 * s/p new mid line (left upper extremity) 10/26/17 prior mid line removed and tip sent for culture and was negative. Midline left arm was removed 11/06/17 due to bleeding from site. NO Midline/PICC can be placed on Right UE due to the Right [id number] and can not be placed on the Left UE due to the Left Brachia/ Axillary DVTs * (Jovita Serrano): * Patient is now: DNR * Palliative care on board * Bioethics consult () to evaluated-->notes under patient care-- Patient's may make decision. * F/u case management regarding patient's insurance and placement 11/08/17: Per my colleague Dr. Deepthi Barth, who had extensive conversation with today at the time of exam. 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 If debridement did take place then there would be no guarantees that this would improve considering his multiple comorbidities and that this will also likely be extremely painful to patient. Also that if these areas were not debrided, then we ran the risk for sepsis as well osteomyelitis. So unfortunately this placed us between a rock and a hard place concerning this issue. Considering this, I asked her to consider Hospice and explained to her that this would involve discontinuing HD, antibiotics and would involve making him as comfortable as possible. I have reached out to Palliative Care Nurse Domitila and explained to that Nurse Ramesh will speak with her 11/09/17. also asked about the possibility of spinal anesthesia for the debridement and I told her that I would check with the surgery team but also reminded her of the original concerns about patient pain after the procedure and likelihood of lack of improvement considering the multiple comorbidities. 11/09/17: Nurse Ramesh spoke with via phone (concerning what Dr. Deepthi Barth discussed with her in person on 11/08/17) and will meet with her on 11/10. 11/10/17: Nurse Ramesh met with . [place] that may be undocumented and relies on patient's benefits for financial source. Considering my conversation with patient on 11/08/17, Dr. Deepthi Barth have ordered BioEthics consultation for further recommendations. Nurse Ramesh will speak with Bio[employer] Dr. Renan Bowles whose help will be appreciated concerning this issue. 11/11-: Awaiting BioEthics evaluation. 11/15/17: per Bioethics consult: This patient has been here for five months (9 ) to present. He was admitted with shortness of breath and chest pain. Over these months his condition has deteriorated. He is now in need of heavy care. His expressed worry and concern. She agreed to a DNR. The consult involves the conflict of the not agreeing with placing her on comfort care. Bio-ethics committee recommends approaching the family again in light of insurance changes to place the patient in a long-term care facility ( retirement), or for the family to prepare for home health care if hospice will not be considered, even though it is thought appropriate for this patient. 11/16/17: Family meeting at 5:30PM with Cleaner And Dyer Sue, dowel pin worker Glenn, Resident Ricky, with patient's . Assistance with Translation Micky Loya #[id number] Irish Intrepretor.. Reviewed where does the patient go from the hospitalization and available options. Patient's has affirmed with definitive "NO" to surgical intervention which includes debridement of the sacrum, fistula placement, nor exchange out the permacath given the cardiac risk for any operation. This was explained to her very clearly. Patient's has affirmed with definitive "NO" to comfort care and no hospice care. She wants to continue to current therapy including dialysis and trach care treatment. She has affirmed "YES" to DNR. She reports if Gods's will to let him go naturally. Her example she reports if he has a heart attack, let him go. She recalls and reaffirms prior conversations with both my colleague Dr. Cullen Barth and affirms her POLST created with Maryann, Palliative Care nurse. She is aware there is pain associated with the sacrum wound. Glenn, dowel pin worker explained the options available for the patient as listed as below Options: 1#: higher level facility to provide highly care specialized nursing for trach care and will need close distance to support dialysis 2#: hospice 3#: home. chooses option 1 in light of conversation as stated above in regards to Option 2. Given the great level of care he will need, not bring the patient home , which appears overwhelmed and affirms. has affirmed Option#1. However, decision regards which location is something she needs more time to think about. Social work has discussed in extensive detail in regards to locations in [place], [place] and [place], [place] for trach care and located dialysis center. There is no location in [facility] to support the level care that patient requires; which was explained by the social work. Social work works will try to work with given concerns including transportation, cost, and reports is available to answer any questions. has not made decision, needs time to think about it, will given decision tomorrow. 11/17-: We are awaiting 's decision in light of 11/16/17 conversation.
--- NOTE | 2017-11-18 17:33 | CP.PCM.PN ---
Subjective - Date & Time of Evaluation Date of Evaluation: 11/18/17 Time of Evaluation: 05:15 - Subjective Subjective: dictated Objective - Vital Signs/Intake and Output Vital Signs (last 24 hours): Temp Pulse Resp BP Pulse Ox 99.7 F H 125 H 20 142/74 97 11/18/17 15:00 11/18/17 15:00 11/18/17 15:00 11/18/17 15:00 11/18/17 15:00 Intake and Output: 11/18/17 11/18/17 06:59 18:59 Intake Total 860 Output Total 150 Balance 710 - Medications Medications: Current Medications Ascorbic Acid (Vitamin C 500 Mg Tab) 500 mg PEG DAILY [facility] Last Admin: 11/18/17 10:44 Dose: 500 mg Aspirin (Aspirin Chewable) 81 mg PO DAILY [facility] Last Admin: 11/18/17 10:45 Dose: 81 mg Calcitriol (Rocaltrol) 0.25 mcg PEG DAILY [facility] Last Admin: 11/18/17 10:46 Dose: 0.25 mcg Calcium Acetate (Phoslo) 2,001 mg GT TIDCC [facility] Last Admin: 11/18/17 12:49 Dose: 2,001 mg Epoetin Chencho (Procrit) 10,000 unit IV MWF [facility] Last Admin: 11/18/17 12:01 Dose: 10,000 unit Famotidine (Pepcid) 20 mg PO DAILY [facility] Last Admin: 11/18/17 10:45 Dose: 20 mg Heparin Sodium (Porcine) (Heparin) 3,700 units IVP MWF [facility] Last Admin: 11/18/17 12:24 Dose: 3,700 units Micafungin Sodium 100 mg/ (Sodium Chloride) 100 mls @ 100 mls/hr IV Q24H [facility] Last Admin: 11/17/17 18:26 Dose: 100 mls/hr Imipenem/Cilastatin Sodium 500 (mg/ Sodium Chloride) 100 mls @ 100 mls/hr IV Q12H [facility] Last Admin: 11/18/17 06:00 Dose: 100 mls/hr Insulin Aspart (Novolog) 0 unit SC Q6 [facility] PRN Reason: Protocol Last Admin: 11/18/17 12:46 Dose: 1 unit Insulin Detemir (Levemir) 35 unit SC Q12 [facility] Last Admin: 11/18/17 10:46 Dose: 35 unit Ipratropium [place] (Atrovent) 0.5 mg IH RQ6 [facility] Last Admin: 11/18/17 08:45 Dose: Not Given Loperamide HCl (Imodium) 1 mg PO Q4H PRN PRN Reason: Diarrhea Last Admin: 11/04/17 21:10 Dose: 1 mg Metoprolol Tartrate (Lopressor) 12.5 mg PEG BID [facility] Last Admin: 11/18/17 12:45 Dose: Not Given Midodrine (Proamatine) 10 mg PO TID [facility] Last Admin: 11/18/17 14:51 Dose: Not Given Multivitamins (Hexavitamin) 1 tab PEG DAILY [facility] Last Admin: 11/18/17 10:46 Dose: 1 tab Rosuvastatin Calcium (Crestor) 10 mg PO HS [facility] Last Admin: 11/17/17 21:52 Dose: 10 mg Saccharomyces Boulardii (Florastor) 250 mg PEG BID [facility] Last Admin: 11/18/17 10:44 Dose: 250 mg Vitamin A (Vitamin A & D Oint Ud Foilpak) 0.5 ea TOP Q1H PRN PRN Reason: Dry skin Last Admin: 11/15/17 10:25 Dose: 0.5 ea - Labs Labs: 11/18/17 07:55 11/18/17 08:18 PT 13.4 SECONDS (9.7-12.2) H 10/14/17 16:30 INR 1.2 10/14/17 16:30 APTT 28 SECONDS (21-34) 10/14/17 16:30
--- NOTE | 2017-11-18 22:08 | PN ---
DATE: 11/18/2017 The patient was seen today at 5:15. SUBJECTIVE: The patient remains unresponsive on the trach mask. There is no change in his mental status. PHYSICAL EXAMINATION: NECK: Supple. LUNGS: Clear. No crackles or rales heard. Less secretions today. HEART: S1 and S2, regular. ABDOMEN: Soft, flabby, nontender. EXTREMITIES: Remain with foot protectors. RECTAL: He does have a rectal tube. SKIN: He does have a sacral decubitus. LABORATORY DATA: White count is 13.4, hemoglobin 9.7, hematocrit 30.7, platelet count is 529. Potassium is 5.8, creatinine is 2.6. He remains on antibiotics which are Mycamine. He is on Mycamine and imipenem at this time 500 q.12h. and micafungin as well. I stopped the micafungin now as we have given it for 3 weeks. Family has refused Perm-A-Cath catheter change, so we will see whatever happens, but blood cultures are negative for now. His sputum was done. His sputum shows normal saprophytic diane, so most probably we can get rid of the antibiotics, but it happens that we do so aspirates, gas secretions, need to be followed so. Micafungin, I am going to stop it as he received it for 3 weeks almost. Primaxin, we will leave it for next 3 days. The patient has chronic respiratory failure, renal failure. 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 Allan Lawrence MD
[2017-11-19] MEDS: (Novolog) Insulin Aspart, Recombinant 100 u/ml 10 ml vial SC SCH ×5 (00:43→18:34)
[2017-11-19] MEDS: Ipratropium 0.02% Inhal Soln (0.5 mg/2.5 ml) UD IH SCH ×4 (01:54→19:28)
--- NOTE | 2017-11-19 02:44 | CP.PCM.PN ---
<Vamshi Gutierrez - Last Filed: 11/19/17 06:39> Subjective - Date & Time of Evaluation Date of Evaluation: 11/19/17 Time of Evaluation: 06:15 - Subjective Subjective: Medicine progress note for Dr. Lazar Patient seen and examined at bedside. No acute events overnight. Per nursing, patient sounds much better after having his secretions suctioned earlier in the evening. ROS was not obtained. Objective - Vital Signs/Intake and Output Vital Signs (last 24 hours): Temp Pulse Resp BP Pulse Ox 98 F 100 H 16 146/76 98 11/19/17 00:00 11/19/17 00:00 11/19/17 00:00 11/19/17 00:00 11/19/17 00:00 Intake and Output: 11/18/17 11/19/17 18:59 06:59 Intake Total 760 Output Total 100 Balance 660 - Medications Medications: Current Medications Ascorbic Acid (Vitamin C 500 Mg Tab) 500 mg PEG DAILY [facility] Last Admin: 11/18/17 10:44 Dose: 500 mg Aspirin (Aspirin Chewable) 81 mg PO DAILY [facility] Last Admin: 11/18/17 10:45 Dose: 81 mg Calcitriol (Rocaltrol) 0.25 mcg PEG DAILY [facility] Last Admin: 11/18/17 10:46 Dose: 0.25 mcg Calcium Acetate (Phoslo) 2,001 mg GT TIDCC [facility] Last Admin: 11/18/17 18:43 Dose: 2,001 mg Epoetin Chencho (Procrit) 10,000 unit IV MWF [facility] Last Admin: 11/18/17 12:01 Dose: 10,000 unit Famotidine (Pepcid) 20 mg PO DAILY [facility] Last Admin: 11/18/17 10:45 Dose: 20 mg Heparin Sodium (Porcine) (Heparin) 3,700 units IVP MWF [facility] Last Admin: 11/18/17 12:24 Dose: 3,700 units Imipenem/Cilastatin Sodium 500 (mg/ Sodium Chloride) 100 mls @ 100 mls/hr IV Q12H [facility] Last Admin: 11/18/17 18:45 Dose: 100 mls/hr Insulin Aspart (Novolog) 0 unit SC Q6 [facility] PRN Reason: Protocol Last Admin: 11/19/17 00:43 Dose: 1 unit Insulin Detemir (Levemir) 35 unit SC Q12 [facility] Last Admin: 11/18/17 21:47 Dose: 35 unit Ipratropium [place] (Atrovent) 0.5 mg IH RQ6 [facility] Last Admin: 11/19/17 01:54 Dose: Not Given Loperamide HCl (Imodium) 1 mg PO Q4H PRN PRN Reason: Diarrhea Last Admin: 11/04/17 21:10 Dose: 1 mg Metoprolol Tartrate (Lopressor) 12.5 mg PEG BID [facility] Last Admin: 11/18/17 18:44 Dose: 12.5 mg Midodrine (Proamatine) 10 mg PO TID [facility] Last Admin: 11/18/17 18:45 Dose: Not Given Multivitamins (Hexavitamin) 1 tab PEG DAILY [facility] Last Admin: 11/18/17 10:46 Dose: 1 tab Rosuvastatin Calcium (Crestor) 10 mg PO HS [facility] Last Admin: 11/18/17 21:45 Dose: 10 mg Saccharomyces Boulardii (Florastor) 250 mg PEG BID [facility] Last Admin: 11/18/17 18:44 Dose: 250 mg Vitamin A (Vitamin A & D Oint Ud Foilpak) 0.5 ea TOP Q1H PRN PRN Reason: Dry skin Last Admin: 11/15/17 10:25 Dose: 0.5 ea - Labs Labs: 11/18/17 07:55 11/18/17 08:18 PT 13.4 SECONDS (9.7-12.2) H 10/14/17 16:30 INR 1.2 10/14/17 16:30 APTT 28 SECONDS (21-34) 10/14/17 16:30 - Constitutional Appears: No Acute Distress - Head Exam Head Exam: ATRAUMATIC, NORMOCEPHALIC - Eye Exam Eye Exam: EOMI, Normal appearance - ENT Exam ENT Exam: Mucous Membranes Moist - Neck Exam Additional comments: Trach collar in place - Cardiovascular Exam Cardiovascular Exam: Tachycardia, REGULAR RHYTHM, +S1, +S2 - GI/Abdominal Exam GI & Abdominal Exam: Soft. absent: Tenderness Additional comments: peg tube in place - Back Exam Additional comments: Unstageable sacral decubitus ulcer that is now extending into ischial tuberosities Bilateral hip ulcers (stage 2) - Neurological Exam Neurological Exam: Alert, Awake - Skin Skin Exam: Dry, Warm Assessment and Plan - Assessment and Plan (Free Text) Plan: 1). Hx Acute Respiratory Failure/ARDS/Cadiac Arrest/NSTEMI * Dr Cortés (cardiology) on the case-->help appreciated * Dr. Mena (pulmonary) on the case-->help appreciated * Code Blue on 08/10: asystole, cardiopulmonary resuscitative measures initiated , requiring 3 epis, bicarbonate, ROSC achieved and intubated and brought to the ICU. Patient has had multiple for hypotension. Latest CASE REVIEWER was on 10/14; stable awaiting for tele bed when available. * Atrovent 0.5mg Inhaled RQ6H * Aspirin 81mg PO daily * Lopressor 12.5mg PO BID with holding parameters * Crestor 10mg PO qHS * Midodrine 10mg TID 2). Hx Abnormal Stress Test/AICD/CAD * Dr Cortés (cardiology) on the case-->help appreciated * Dr. Mena (pulmonary) on the case-->help appreciated * Code Blue on 08/10: asystole, cardiopulmonary resuscitative measures initiated , requiring 3 epis, bicarbonate, ROSC achieved and intubated and brought to the ICU. Patient has had multiple for hypotension. Latest CASE REVIEWER was on 10/14/17 * Aspirin 81mg PO daily * Lopressor 12.5mg PO BID with holding parameters * Crestor 10mg PO qHS * Midodrine 10mg TID 3). Hx Atrial Flutter: * Stopped Eliquis 10/24/17 secondary significant drop in HgB. Heart Rate is elevated. Ordered for Lopressor 5mg iVX1 on 10/31 * Lopressor 12.5mg PO BID with holding parameters 4). 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 Leukocytosis * Infectious Disease (Dr. Lawrence) on the case-->help appreciated * Blood Culture 10/22/17 is finalized as negative. * Sputum culture 10/14/17 is negative. * Stool cultures 10/20/17 are negative. 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 * Right Arm Midline Tip 10/06/17 culture is negative and removed. Midline Tip Culture 10/26/17 is negative. * Blood Cultures 10/28/17 are negative to date. * Iv ABx: Cefepime (10/12/17 through 10/24/17), Aztreonam (10/13/17 through )), Diflucan (10/14/17 through 10/26/17). * Currently on Meropenem 500 mg IV Q8H (10/28/17), Micofungin 100 mg IV Q24H () * Dr. Lazar spoke with 11/02, she does not want Permacath replaced given cardiac risk for operation/anesthesia. * ID Recommended for permcath and sacral debrdiement by ID, has refused 11/02, and will have to revisit this conversation given elevation in white count * 11/14: will need to f/u with ID, dictated consult not available in regards to if Primaxin to replace Meropenem or not. * 11/15: Leukocytosis improving, will continue to monitor * Sacral ulcer unstagable 6). Hx Pneumonia, Fungemia * ID on the case-->help appreciated * Currently on Primaxin 500 mg IV Q12H (11/14/17-present ), Micofungin 100 mg IV Q24H (10/27/17-present) * changed out and sacral debridement; however, has refused, Dr. Lazar had conversation on Tue, 11/02 given cardiac risk for invasive operation. * 11/14: will need to f/u with ID, dictated consult not available in regards to if Primaxin to replace Meropenem or not. * Sputum cx showing no growth * Sacral ulcer unstagable 7). Hx HTN: * Continue Lopressor 12.5mg PEG BID with holding parameters 8). Hx CKD on HD --. * Family would like to continue HD through current Permacath and declined surgical intervention to change catheter (due to the Blood Culture 10/24/17 being positive for Reny glabrata) as recommended by Vascular Surgery and Infectious Disease. * Dr. Lazar discussed with at bedside 11/02, she continues to deny the exchange secondary to cardiac risk. * Patient going for hemodialysis today * Phoslo 1334mg PO TIDCC * Epocrit 10,000 unit IV MWF 9). Hx DM: * Levemir 35 units [id number] * Monitor accuchecks Q6H * HgbA1c 8.4 10). Hx HLD * Continue Crestor 10mg PO qHS 11). Hx Anemia: * Eliquis stopped 10/24/17 and was transfused 2 units PRBCs. * CBC morning 10/25/17 dropped from 11.2 post trasfusion 10/24/17 to 10.2 morning 10/25/17. * Stool Occult is Positive and GI Dr. Dsouza was reconsulted however no further workup recommended in light of patient current status. * Procrit 10,000 units -W- * s/p 1 unit of PRBC 11/04 given declining H/H * HgB/Hct are currently stable * Continue to monitor 12). Hx DVT; Left upper Extremity DVT+ * Eliquis stopped 10/24/17 given positive bloody stool * Repeat dopplers LE 08/09/17 are negative for DVT * Left UE Doppler 11/08/17 was POSITIVE for DVTs in Left Brachial and Left Axillary Veins: Can NOT anticoagulate due to history of bleeding (requiring blood transfusion) with anticoagulation 13). Hx UTI: * Yeast on culture 10/24/17. He is currently on Micafungin 100 mg IV Q24H. He may be colonized with this. * ID Recommended for permcath and sacral debridement by ID, has refused 11/02 14). Hx Alzheimer's Dementia * CT head w/o contrast (08/10/17):acute os subacute lacune infarct is not excluded in the left basal ganglia inferiorly with definitive chronic lacune identified in the right basal ganglia superiorly. No acute or subacute lobar brain infarction is appreciable by standard CT criteria. Mild age-related neuro * CT Head w/o contrast (10/14/17): no intracranial mass, hemorrhage, or evidence of acute infarct. 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 Old right external capsule ischemic change. Age related atrophy and chronic microvascular ischemic change * Note: patient does listen to his at bedside sometimes and follows simple commands but not always 15). Hx Sacral Ulcer: * General surgery (Dr. Forbes) on board-->help appreciated * Bone Scan performed 09/17/17 to check for Osteomyelitis at the Sacrum: negative for osteomyelitis * Currently on MediHoney daily, family has declined further debridement by surgery. Wound care on board * Recommended for permcath and sacral debrdiement by ID, has refused 11/02 16). Hx Right Heal Ulcer * Podiatry (Dr. Lundberg) on board-->help appreciated * Prevalon boots * Unstageable * PT recommending repositioning q2hrs 17). Hx Elevated LFTs * Normalized; patient is on statin and Micafungin 18). Diarrhea (resolved) * Rectal tube in place * On loperamide PRN 19). Hx Hyponatremia: Hx of Hyperkalemai * Sodium 128 today, will monitor * Potassium 5.8, will correct in HD today 20). Hx PEG Tube: * Vital 1.5 at 50 ml/hour 21). Hx Hypocalcemia: * Continue Calcitriol 22). Prophylactic Measures: * Started on dialysis 08/15/17 * s/p Right Chest Permcath 08/22/17--->Recommended by ID to exchange out but has refused. Will need to revisit given elevation in WBC * S/P Tracheostomy 08/22/17 * S/P Peg tube placement 08/25/17 * S/p insertion of right posterior chest tube 08/19-->removed 08/24/17 * Passy Flex Trach placed 09/15/17 * s/p new mid line (left upper extremity) 10/26/17 prior mid line removed and tip sent for culture and was negative. Midline left arm was removed 11/06/17 due to bleeding from site. NO Midline/PICC can be placed on Right UE due to the Right [id number]-[id number] and can not be placed on the Left UE due to the Left Brachia/ Axillary DVTs * (Jovita Serrano): * Patient is now: DNR * Palliative care on board--> recommending for bioethics consult * Bioethics consult () to evaluate * F/u case management regarding patient's insurance Disposition: Family meeting with , Dr Lazar, and Glenn ( social work) took place on Tuesday11/16/17. Still awaiting 's decision on placement. Will DW Dr. Nagi Gutierrez PGY-1 <Mariangel Lazar V - Last Filed: 11/20/17 16:40> Objective - Vital Signs/Intake and Output Vital Signs (last 24 hours): Temp Pulse Resp BP Pulse Ox 98.9 F 122 H 20 146/82 94 L 11/20/17 15:00 11/20/17 15:00 11/20/17 15:00 11/20/17 07:59 11/20/17 15:00 Intake and Output: 11/20/17 11/20/17 06:59 18:59 Intake Total 760 1420 Output Total 350 400 Balance 410 1020 - Medications Medications: Current Medications Ascorbic Acid (Vitamin C 500 Mg Tab) 500 mg PEG DAILY [facility] Last Admin: 11/20/17 09:48 Dose: 500 mg Aspirin (Aspirin Chewable) 81 mg PO DAILY [facility] Last Admin: 11/20/17 09:48 Dose: 81 mg Calcitriol (Rocaltrol) 0.25 mcg PEG DAILY [facility] Last Admin: 11/20/17 10:51 Dose: 0.25 mcg Calcium Acetate (Phoslo) 2,001 mg GT TIDCC [facility] Last Admin: 11/20/17 13:10 Dose: 2,001 mg Epoetin Chencho (Procrit) 10,000 unit IV MWF [facility] Last Admin: 11/18/17 12:01 Dose: 10,000 unit Famotidine (Pepcid) 20 mg PEG DAILY [facility] Last Admin: 11/20/17 09:48 Dose: 20 mg Imipenem/Cilastatin Sodium 500 (mg/ Sodium Chloride) 100 mls @ 100 mls/hr IV Q12H [facility] Last Admin: 11/20/17 06:04 Dose: 100 mls/hr Insulin Aspart (Novolog) 0 unit SC Q6 [facility] PRN Reason: Protocol Last Admin: 11/20/17 13:09 Dose: 3 unit Insulin Detemir (Levemir) 35 unit SC Q12 [facility] Last Admin: 11/20/17 10:50 Dose: 35 unit Ipratropium [place] (Atrovent) 0.5 mg IH RQ6 [facility] Last Admin: 11/20/17 14:11 Dose: 0.5 mg Loperamide HCl (Imodium) 1 mg PO Q4H PRN PRN Reason: Diarrhea Last Admin: 11/04/17 21:10 Dose: 1 mg Midodrine (Proamatine) 10 mg PO TID [facility] Last Admin: 11/20/17 15:16 Dose: Not Given Multivitamins (Hexavitamin) 1 tab PEG DAILY [facility] Last Admin: 11/20/17 09:48 Dose: 1 tab Rosuvastatin Calcium (Crestor) 10 mg PEG HS [facility] Last Admin: 11/19/17 22:01 Dose: 10 mg Saccharomyces Boulardii (Florastor) 250 mg PEG BID [facility] Last Admin: 11/20/17 09:48 Dose: 250 mg Vitamin A (Vitamin A & D Oint Ud Foilpak) 0.5 ea TOP Q1H PRN PRN Reason: Dry skin Last Admin: 11/15/17 10:25 Dose: 0.5 ea - Labs Labs: 11/20/17 11:00 11/20/17 11:00 PT 13.4 SECONDS (9.7-12.2) H 10/14/17 16:30 INR 1.2 10/14/17 16:30 APTT 28 SECONDS (21-34) 10/14/17 16:30 Attending/Attestation - Attestation I have personally seen and examined this patient.: Yes I have fully participated in the care of the patient.: Yes I have reviewed all pertinent clinical information, including history, physical exam and plan: Yes Notes (Text): This is a late computer entry for 11/19/2017. Patient seen, examined, and case discussed with daytime resident. There is no acute change towards patient's management of care. We are awaiting 's decision in regards to placement for her . I have discussed with pastoral care as well who will reach out out to the . Assessment/Plans 1). Hx Acute Respiratory Failure/ARDS/Cadiac Arrest/NSTEMI: * Dr Cortés (cardiology) on the case-->help appreciated * Dr. Mena (pulmonary) on the case-->help appreciated * Code Blue on 08/10: asystole, cardiopulmonary resuscitative measures initiated , requiring 3 epis, bicarbonate, ROSC achieved and intubated and brought to the ICU. Patient has had multiple for hypotension. Latest CASE REVIEWER was on 10/14--> transferred to Regular and on the floors. * Atrovent 0.5mg Inhaled RQ6H * Aspirin 81mg PO daily * Lopressor 12.5mg PO BID with holding parameters * Midodrine 10mg PO TID * Crestor 10mg PO qHS 2). Hx Abnormal Stress Test/AICD/CAD: * Dr Cortés (cardiology) on the case-->help appreciated * Dr. Mena (pulmonary) on the case-->help appreciated * Code Blue on 08/10: asystole, cardiopulmonary resuscitative measures initiated , requiring 3 epis, bicarbonate, ROSC achieved and intubated and brought to the ICU. Patient has had multiple for hypotension. Latest CASE REVIEWER was on 10/14/17 * Aspirin 81mg PO daily * Lopressor 12.5mg PO BID with holding parameters * Midodrine 10mg PO TID * Crestor 10mg PO qHS 3). Hx Atrial Flutter: * Lopressor 12.5mg PO BID with holding parameters * Unable to anticoagulate secondary to occult stool blood 4). Hx Acute on Chronic Systolic HF * Aspirin 81mg PO daily * Lopressor 12.5mg PO BID with holding parameters * Midodrine 10mg PO TID * Crestor 10mg PO qHS * Lisinopril was discontinued on 10/14/17 at the time of CASE REVIEWER for Hypotension 5). Leukocytosis * Infectious Disease (Dr. Lawrence) on the case-->help appreciated * Blood Culture 10/22/17 is finalized as negative. * Sputum culture 10/14/17 is negative. * Stool cultures 10/20/17 are negative. 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 * Right Arm Midline Tip 10/06/17 culture is negative and removed. Midline Tip Culture 10/26/17 is negative. * Blood Cultures 10/28/17 are negative to date. * Iv ABx: Cefepime (10/12/17 through 10/24/17), Aztreonam (10/13/17 through )), Diflucan (10/14/17 through 10/26/17). * Off Meropenem 500 mg IV Q8H (10/28;), Micafungin 100 mg IV Q24H (10/27/17 ) * Started on Primaxin given shortage on Meropenem * Primaxin 500mg IVQ12 (active since 11/17/17) * I spoke with 11/02, she does not want Permacath replaced given cardiac risk for operation/anesthesia and reaffirmed on 11/16. * ID Recommended for permcath and sacral debridement by ID, has refused 11/02. * Sacral ulcer unstageable; Wound care is on board 6). Hx Pneumonia, Fungemia * ID on the case-->help appreciated * Currently on Meropenem 500 mg IV Q8H (10/28/17-18), Micofungin 100 mg IV Q24H ( 10/27/17-present). * Started on Primaxin given shortage on Meropenem * Primaxin 500mg IVQ12 (active since 11/17/17) * I spoke with 11/02, she does not want Permacath replaced given cardiac risk for operation/anesthesia. * ID Recommended for permcath and sacral debridement by ID, has refused 11/02 and 11/16. * Sacral ulcer unstageable; Wound care is on board 7). Hx HTN: * Lopressor 12.5mg PEG BID with holding parameters 8). Hx CKD on HD --. * Family would like to continue HD through current Permacath and declined surgical intervention to change catheter (due to the Blood Culture 10/24/17 being positive for Reny glabrata) as recommended by Vascular Surgery and Infectious Disease. * I discussed with at bedside 11/02, she continues to deny the exchange secondary to cardiac risk. * Phoslo 2001mg GT TIDCC * Epocrit 10,000 unit IV MWF 9). Hx DM: * Levemir 35 units [id number] * monitor [id number] * HgbA1c 8.4 10). Hx HLD * Crestor 10mg PO qHS 11). Hx Anemia: * Eliquis stopped 10/24/17 secondary to positive stool occult blood * Stool Occult is Positive and GI Dr. Dsouza was reconsulted however no further workup recommended in light of patient current status. * Procrit 10,000 units -- * s/p1 unit of PRBC 11/04 given declining H/H * HgB/Hct are currently stable 12). Hx DVT; Left upper Extremity DVT+ * Eliquis stopped 10/24/17 given positive bloody stool * Repeat dopplers LE 08/09/17 are negative for DVT * Left UE Doppler 11/08/17 was POSITIVE for DVTs in Left Brachial and Left Axillary Veins: Can NOT anticoagulate due to history of bleeding (requiring blood transfusion) with anticoagulation 13). Hx UTI: * Yeast on culture 10/24/17. He is currently on Micafungin 100 mg IV Q24H. He may be colonized with this. * ID Recommended for permcath and sacral debridement by ID, has refused 11/02 and confirmed 11/16 14). Hx Alzheimer's Dementia * CT head w/o contrast (08/10/17):acute os subacute lacune infarct is not excluded in the left basal ganglia inferiorly with definitive chronic lacune identified in the right basal ganglia superiorly. No acute or subacute lobar brain infarction is appreciable by standard CT criteria. Mild age-related neuro * CT Head w/o contrast (10/14/17): no intracranial mass, hemorrhage, or evidence of acute infarct. 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 Old right external capsule ischemic change. Age related atrophy and chronic microvascular ischemic change 15). Hx Sacral Ulcer: * General surgery (Dr. Forbes) on board-->help appreciated * Bone Scan performed 09/17/17 to check for Osteomyelitis at the Sacrum: negative for osteomyelitis * Currently on MediHoney daily, family has declined further debridement by surgery. Wound care on board * Recommended for permcath and sacral debridement by ID, has refused 11/02 16). Hx Right Heal Ulcer * Podiatry (Dr. Lundberg) on board-->help appreciated * Prevalon boots * unstageable 17). Hx Elevated LFTs * Normalized; patient is on statin and Micafungin 18). Diarrhea: * On Rectal Seal and producing dark brown/black stools that are watery. Stool Studies 10/20/17 are negative * On loperamide PRN 19). Hx Hyponatremia: * Normalized 20). Hx PEG Tube: * Vital 1.5 at 50 ml/hour 21). Hx Hypocalcemia: * Calcitriol 22). Prophylactic Measures: * Vitamin C, Dulcolax PRN, Pepcid, MVI, Zofran PRN, Florastor * Started on dialysis 08/15/17 * s/p Right Chest Permcath 08/22/17--->Recommended by ID to exchange out but has refused. Reaffirmed on 11/16/17 conversation. * S/P Tracheostomy 08/22/17 * S/P Peg tube placement 08/25/17 * S/p insertion of right posterior chest tube 08/19-->removed 08/24/17 * Passy Flex Trach placed 09/15/17 * s/p new mid line (left upper extremity) 10/26/17 prior mid line removed and tip sent for culture and was negative. Midline left arm was removed 11/06/17 due to bleeding from site. NO Midline/PICC can be placed on Right UE due to the Right [id number] and can not be placed on the Left UE due to the Left Brachia/ Axillary DVTs * (Jovita Serrano): * Patient is now: DNR * Palliative care on board * Bioethics consult () to evaluated-->notes under patient care-- Patient's may make decision. * F/u case management regarding patient's insurance and placement 11/08/17: Per my colleague Dr. Deepthi Barth, who had extensive conversation with today at the time of exam. 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 If debridement did take place then there would be no guarantees that this would improve considering his multiple comorbidities and that this will also likely be extremely painful to patient. Also that if these areas were not debrided, then we ran the risk for sepsis as well osteomyelitis. So unfortunately this placed us between a rock and a hard place concerning this issue. Considering this, I asked her to consider Hospice and explained to her that this would involve discontinuing HD, antibiotics and would involve making him as comfortable as possible. I have reached out to Palliative Care Nurse Domitila and explained to that Nurse Ramesh will speak with her 11/09/17. also asked about the possibility of spinal anesthesia for the debridement and I told her that I would check with the surgery team but also reminded her of the original concerns about patient pain after the procedure and likelihood of lack of improvement considering the multiple comorbidities. 11/09/17: Nurse Ramesh spoke with via phone (concerning what Dr. Deepthi Barth discussed with her in person on 11/08/17) and will meet with her on 11/10. 11/10/17: Nurse Ramesh met with . [place] that may be undocumented and relies on patient's benefits for financial source. Considering my conversation with patient on 11/08/17, Dr. Deepthi Barth have ordered BioEthics consultation for further recommendations. Nurse Ramesh will speak with BioEthics Dr. Renan Bowles whose help will be appreciated concerning this issue. 11/11-: Awaiting BioEthics evaluation. 11/15/17: per Bioethics consult: This patient has been here for five months (9 ) to present. He was admitted with shortness of breath and chest pain. Over these months his condition has deteriorated. He is now in need of heavy care. His expressed worry and concern. She agreed to a DNR. The consult involves the conflict of the not agreeing with placing her on comfort care. Bio-ethics committee recommends approaching the family again in light of insurance changes to place the patient in a long-term care facility ( senior care), or for the family to prepare for home health care if hospice will not be considered, even though it is thought appropriate for this patient. 11/16/17: Family meeting at 5:30PM with [employer] Sue outreach worker Glenn, Resident Ricky, with patient's . Assistance with Translation Micky Loya #[id number] Maltese Intrepretor.. Reviewed where does the patient go from the hospitalization and available options. Patient's has affirmed with definitive "NO" to surgical intervention which includes debridement of the sacrum, fistula placement, nor exchange out the permacath given the cardiac risk for any operation. This was explained to her very clearly. Patient's has affirmed with definitive "NO" to comfort care and no hospice care. She wants to continue to current therapy including dialysis and trach care treatment. She has affirmed "YES" to DNR. She reports if Gods's will to let him go naturally. Her example she reports if he has a heart attack, let him go. She recalls and reaffirms prior conversations with both my colleague Dr. Cullen Barth and affirms her POLST created with Maryann, Palliative Care nurse. She is aware there is pain associated with the sacrum wound. Glenn outreach worker explained the options available for the patient as listed as below Options: 1#: higher level facility to provide highly care specialized nursing for trach care and will need close distance to support dialysis 2#: hospice 3#: home. chooses option 1 in light of conversation as stated above in regards to Option 2. Given the great level of care he will need, not bring the patient home , which appears overwhelmed and affirms. has affirmed Option#1. However, decision regards which location is something she needs more time to think about. Social work has discussed in extensive detail in regards to locations in [place], [place] and [place], [place] for trach care and located dialysis center. There is no location in [facility] to support the level care that patient requires; which was explained by the social work. Social work works will try to work with given concerns including transportation, cost, and reports is available to answer any questions. has not made decision, needs time to think about it, will given decision tomorrow. 11/17-: We are awaiting 's decision in light of 11/16/17 conversation.
[2017-11-19 07:39] LABS: BASO # 0.1 K/uL (0.0-0.2); BASO % 0.7 % (0.0-2.0); EOS # 0.2 K/uL (0.0-0.7); EOS % 1.4 % (0.0-4.0); HEMATOCRIT 28.1 % (35.0-51.0); LYMPH % 12.5 % (20.0-40.0); MEAN CORPUSCULAR HEMOGLOBIN 30.5 pg (27.0-31.0); MEAN CORPUSCULAR HGB CONC 33.3 g/dL (33.0-37.0); MEAN PLATELET VOLUME 7.3 fL (7.2-11.7); MONO # 0.9 K/uL (0.0-0.8); MONO % 5.7 % (0.0-10.0); NRBC % 0.1 % (0.0-2.0); RED CELL DISTRIBUTION WIDTH 19.5 % (11.5-14.5); WHITE BLOOD COUNT 16.4 K/uL (4.8-10.8)
[2017-11-19 07:49] LABS: MEAN CELL VOLUME 91.6 fL (80.0-94.0)
[2017-11-19 08:37] LABS: ALB/GLOB RATIO 0.8 (1.0-2.1); BILIRUBIN,TOTAL 0.4 mg/dL (0.2-1.3); POTASSIUM 5.2 mmol/L (3.6-5.2); TOTAL PROTEIN 5.3 g/dL (6.3-8.3)
[2017-11-19] MEDS: Multiple Vitamins Tab PEG SCH (09:24)
[2017-11-19] MEDS: Saccharomyces Boulardi 250 mg Cap PEG SCH ×2 (09:24→18:26)
--- NOTE | 2017-11-19 09:28 | CP.PCM.PN ---
Subjective - Date & Time of Evaluation Date of Evaluation: 11/19/17 Time of Evaluation: 09:26 - Subjective Subjective: Notes reviewed Patient unresponsive to verbal or tactile command No respiratory distress with trach No overnight events Patient unable to provide history or answer ROS questions due to ams Received dialysis 11/18 Objective - Vital Signs/Intake and Output Vital Signs (last 24 hours): Temp Pulse Resp BP Pulse Ox 98.7 F 100 H 20 148/78 97 11/19/17 07:45 11/19/17 07:45 11/19/17 07:45 11/19/17 07:45 11/19/17 07:45 Intake and Output: 11/19/17 11/19/17 06:59 18:59 Intake Total 760 760 Output Total 100 300 Balance 660 460 - Medications Medications: Current Medications Ascorbic Acid (Vitamin C 500 Mg Tab) 500 mg PEG DAILY [facility] 234 BEDS AT [facility] Last Admin: 11/18/17 10:44 Dose: 500 mg Aspirin (Aspirin Chewable) 81 mg PO DAILY [facility]CLUDE 234 BEDS AT [facility] Last Admin: 11/18/17 10:45 Dose: 81 mg Calcitriol (Rocaltrol) 0.25 mcg PEG DAILY [facility]CLUDE 234 BEDS AT THE [facility] Last Admin: 11/18/17 10:46 Dose: 0.25 mcg Calcium Acetate (Phoslo) 2,001 mg GT TIDCC COUNTS INCLUDE 234 BEDS AT THE [facility] Last Admin: 11/18/17 18:43 Dose: 2,001 mg Epoetin [place] (Procrit) 10,000 unit IV MWF [facility]S [facility]CLUDE 234 BEDS AT THE [facility] Last Admin: 11/18/17 12:01 Dose: 10,000 unit Famotidine (Pepcid) 20 mg PEG DAILY [facility]S INCLUDE 234 BEDS AT THE [facility] Heparin Sodium (Porcine) (Heparin) 3,700 units IVP MWF [facility]S [facility]CLUDE 234 BEDS AT THE [facility] Last Admin: 11/18/17 12:24 Dose: 3,700 units Imipenem/Cilastatin Sodium 500 (mg/ Sodium Chloride) 100 mls @ 100 mls/hr IV Q12H [facility]S [facility]CLUDE 234 BEDS AT THE [facility] Last Admin: 11/19/17 06:05 Dose: 100 mls/hr Insulin Aspart (Novolog) 0 unit SC Q6 [facility]S [facility]CLUDE 234 BEDS AT THE [facility] PRN Reason: Protocol Last Admin: 11/19/17 06:33 Dose: Not Given Insulin Detemir (Levemir) 35 unit SC Q12 [facility]S [facility]CLUDE 234 BEDS AT [facility] Last Admin: 11/18/17 21:47 Dose: 35 unit Ipratropium [place] (Atrovent) 0.5 mg IH RQ6 [facility]S INCLUDE 234 BEDS AT THE [facility] Last Admin: 11/19/17 07:40 Dose: Not Given Loperamide HCl (Imodium) 1 mg PO Q4H PRN PRN Reason: Diarrhea Last Admin: 11/04/17 21:10 Dose: 1 mg Metoprolol Tartrate (Lopressor) 12.5 mg PEG BID [facility]S INCLUDE 234 BEDS AT [facility] Last Admin: 11/18/17 18:44 Dose: 12.5 mg Midodrine (Proamatine) 10 mg PO TID COUNTS INCLUDE 234 BEDS AT THE [facility] Last Admin: 11/18/17 18:45 Dose: Not Given Multivitamins (Hexavitamin) 1 tab PEG DAILY COUNTS INCLUDE 234 BEDS AT THE [facility] Last Admin: 11/18/17 10:46 Dose: 1 tab Rosuvastatin Calcium (Crestor) 10 mg PEG HS COUNTS INCLUDE 234 BEDS AT THE [facility] Saccharomyces Boulardii (Florastor) 250 mg PEG BID COUNTS INCLUDE 234 BEDS AT THE [facility] Last Admin: 11/18/17 18:44 Dose: 250 mg Vitamin A (Vitamin A & D Oint Ud Foilpak) 0.5 ea TOP Q1H PRN PRN Reason: Dry skin Last Admin: 11/15/17 10:25 Dose: 0.5 ea - Labs Labs: 11/19/17 07:15 11/19/17 07:15 PT 13.4 SECONDS (9.7-12.2) H 10/14/17 16:30 INR 1.2 10/14/17 16:30 APTT 28 SECONDS (21-34) 10/14/17 16:30 - Constitutional Appears: Chronically Ill - Head Exam Head Exam: ATRAUMATIC, NORMAL INSPECTION - ENT Exam ENT Exam: Mucous Membranes Moist, Normal Oropharynx - Neck Exam Neck Exam: absent: Lymphadenopathy Additional comments: trach site clean - Respiratory Exam Respiratory Exam: Rhonchi, NORMAL BREATHING PATTERN. absent: Rales - Cardiovascular Exam Cardiovascular Exam: +S1, +S2. absent: Rubs - GI/Abdominal Exam GI & Abdominal Exam: Soft, Normal Bowel Sounds - Extremities Exam Extremities Exam: Pedal Edema. absent: Tenderness - Neurological Exam Neurological Exam: absent: Alert, Awake, Oriented x3 - Skin Skin Exam: Dry, Warm Additional comments: sacral ulcer noted from documented notes in chart Assessment and Plan (1) ARDS (adult respiratory distress syndrome) Status: Acute (2) Acute on chronic renal failure Status: Resolved (3) ESRD (end stage renal disease) Status: Acute (4) Congestive heart failure Status: Acute (5) CHF exacerbation Status: Chronic (6) Diabetes mellitus Status: Chronic (7) HTN (hypertension) Status: Chronic - Assessment and Plan (Free Text) Assessment: Maintain dialysis schedule Abx as ordered Tube feeding Supportive care
[2017-11-19] MEDS: Insulin Detemir 100 units/ml Vial (Levemir) SC SCH ×2 (09:54→22:02)
--- NOTE | 2017-11-19 16:34 | CP.PCM.PN ---
Subjective - Date & Time of Evaluation Date of Evaluation: 11/19/17 Time of Evaluation: 10:30 - Subjective Subjective: Patient seen and evaluated Patient general condition remains poor No cardiac events noted Objective - Vital Signs/Intake and Output Vital Signs (last 24 hours): Temp Pulse Resp BP Pulse Ox 98.9 F 114 H 20 137/66 97 11/19/17 16:27 11/19/17 16:27 11/19/17 16:27 11/19/17 16:27 11/19/17 16:27 Intake and Output: 11/19/17 11/19/17 06:59 18:59 Intake Total 760 760 Output Total 100 300 Balance 660 460 - Medications Medications: Current Medications Ascorbic Acid (Vitamin C 500 Mg Tab) 500 mg PEG DAILY [facility] Last Admin: 11/19/17 09:29 Dose: 500 mg Aspirin (Aspirin Chewable) 81 mg PO DAILY [facility] Last Admin: 11/19/17 09:25 Dose: 81 mg Calcitriol (Rocaltrol) 0.25 mcg PEG DAILY [facility] Last Admin: 11/19/17 09:25 Dose: 0.25 mcg Calcium Acetate (Phoslo) 2,001 mg GT TIDCC [facility] Last Admin: 11/19/17 13:05 Dose: 2,001 mg Epoetin [place] (Procrit) 10,000 unit IV MWF [facility] Last Admin: 11/18/17 12:01 Dose: 10,000 unit Famotidine (Pepcid) 20 mg PEG DAILY [facility] Last Admin: 11/19/17 09:25 Dose: 20 mg Heparin Sodium (Porcine) (Heparin) 3,700 units IVP MWF [facility] Last Admin: 11/18/17 12:24 Dose: 3,700 units Imipenem/Cilastatin Sodium 500 (mg/ Sodium Chloride) 100 mls @ 100 mls/hr IV Q12H [facility] Last Admin: 11/19/17 06:05 Dose: 100 mls/hr Insulin Aspart (Novolog) 0 unit SC Q6 [facility] PRN Reason: Protocol Last Admin: 11/19/17 13:07 Dose: 1 unit Insulin Detemir (Levemir) 35 unit SC Q12 [facility] Last Admin: 11/19/17 09:54 Dose: 35 unit Ipratropium [place] (Atrovent) 0.5 mg IH RQ6 [facility] Last Admin: 11/19/17 13:07 Dose: 0.5 mg Loperamide HCl (Imodium) 1 mg PO Q4H PRN PRN Reason: Diarrhea Last Admin: 11/04/17 21:10 Dose: 1 mg Metoprolol Tartrate (Lopressor) 12.5 mg PEG BID [facility] Last Admin: 11/19/17 09:24 Dose: 12.5 mg Midodrine (Proamatine) 10 mg PO TID [facility] Last Admin: 11/19/17 13:08 Dose: Not Given Multivitamins (Hexavitamin) 1 tab PEG DAILY [facility] Last Admin: 11/19/17 09:24 Dose: 1 tab Rosuvastatin Calcium (Crestor) 10 mg PEG HS [facility] Saccharomyces Boulardii (Florastor) 250 mg PEG BID [facility] Last Admin: 11/19/17 09:24 Dose: 250 mg Vitamin A (Vitamin A & D Oint Ud Foilpak) 0.5 ea TOP Q1H PRN PRN Reason: Dry skin Last Admin: 11/15/17 10:25 Dose: 0.5 ea - Labs Labs: 11/19/17 07:15 11/19/17 07:15 PT 13.4 SECONDS (9.7-12.2) H 10/14/17 16:30 INR 1.2 10/14/17 16:30 APTT 28 SECONDS (21-34) 10/14/17 16:30
--- NOTE | 2017-11-19 17:18 | CP.PCM.PN ---
Subjective - Date & Time of Evaluation Date of Evaluation: 11/19/17 Time of Evaluation: 13:45 - Subjective Subjective: Podiatry Progress Note for Dr. Lundberg 77 year old male seen at bedside for chronic right heel ulceration. Patient is seen resting comfortably in bed and asleep during the time of visit. Offloading boots to both feet and dressing clean, dry, intact. Objective - Vital Signs/Intake and Output Vital Signs (last 24 hours): Temp Pulse Resp BP Pulse Ox 98.9 F 114 H 20 137/66 97 11/19/17 16:27 11/19/17 16:27 11/19/17 16:27 11/19/17 16:27 11/19/17 16:27 Intake and Output: 11/19/17 11/19/17 06:59 18:59 Intake Total 760 760 Output Total 100 300 Balance 660 460 - Medications Medications: Current Medications Ascorbic Acid (Vitamin C 500 Mg Tab) 500 mg PEG DAILY [facility] Last Admin: 11/19/17 09:29 Dose: 500 mg Aspirin (Aspirin Chewable) 81 mg PO DAILY [facility] Last Admin: 11/19/17 09:25 Dose: 81 mg Calcitriol (Rocaltrol) 0.25 mcg PEG DAILY [facility] Last Admin: 11/19/17 09:25 Dose: 0.25 mcg Calcium Acetate (Phoslo) 2,001 mg GT TIDCC [facility] Last Admin: 11/19/17 13:05 Dose: 2,001 mg Epoetin [place] (Procrit) 10,000 unit IV MWF [facility] Last Admin: 11/18/17 12:01 Dose: 10,000 unit Famotidine (Pepcid) 20 mg PEG DAILY [facility] Last Admin: 11/19/17 09:25 Dose: 20 mg Heparin Sodium (Porcine) (Heparin) 3,700 units IVP MWF [facility] Last Admin: 11/18/17 12:24 Dose: 3,700 units Imipenem/Cilastatin Sodium 500 (mg/ Sodium Chloride) 100 mls @ 100 mls/hr IV Q12H [facility] Last Admin: 11/19/17 06:05 Dose: 100 mls/hr Insulin Aspart (Novolog) 0 unit SC Q6 [facility] PRN Reason: Protocol Last Admin: 11/19/17 13:07 Dose: 1 unit Insulin Detemir (Levemir) 35 unit SC Q12 [facility] Last Admin: 11/19/17 09:54 Dose: [address] [place] (Atrovent) 0.5 mg IH RQ6 [facility] Last Admin: 11/19/17 13:07 Dose: 0.5 mg Loperamide HCl (Imodium) 1 mg PO Q4H PRN PRN Reason: Diarrhea Last Admin: 11/04/17 21:10 Dose: 1 mg Metoprolol Tartrate (Lopressor) 12.5 mg PEG BID [facility] Last Admin: 11/19/17 09:24 Dose: 12.5 mg Midodrine (Proamatine) 10 mg PO TID [facility] Last Admin: 11/19/17 13:08 Dose: Not Given Multivitamins (Hexavitamin) 1 tab PEG DAILY [facility] Last Admin: 11/19/17 09:24 Dose: 1 tab Rosuvastatin Calcium (Crestor) 10 mg PEG HS [facility] Saccharomyces Boulardii (Florastor) 250 mg PEG BID [facility] Last Admin: 11/19/17 09:24 Dose: 250 mg Vitamin A (Vitamin A & D Oint Ud Foilpak) 0.5 ea TOP Q1H PRN PRN Reason: Dry skin Last Admin: 11/15/17 10:25 Dose: 0.5 ea - Labs Labs: 11/19/17 07:15 11/19/17 07:15 PT 13.4 SECONDS (9.7-12.2) H 10/14/17 16:30 INR 1.2 10/14/17 16:30 APTT 28 SECONDS (21-34) 10/14/17 16:30 - Constitutional Appears: Well, Non-toxic, No Acute Distress - Extremities Exam Additional comments: lower extremity focused exam: VASC- DP and PT pulses palpable 1/4 b/l, CFT > 4 seconds all digits, temperature gradient wnl, no edema noted to the LE b/l DERM- Medial aspect of right heel has a non-stageable ulcer with a necrotic eschar, no [place] wound erythema, no drainage, no malodor, no cellulitis, no odor noted. skin is diffusely xerotic b/l NEURO- pedal sensation grossly diminished ORTHO- no tenderness on palpation to heels b/l - Neurological Exam Neurological Exam: Alert, Awake, Oriented x3 - Psychiatric Exam Psychiatric exam: Normal Affect, Normal Mood Assessment and Plan - Assessment and Plan (Free Text) Assessment: 77 year old male with right heel unstageable ulcer Plan: Patient seen and evaluated at bedside Discussed in detail with attending Dr. Lundberg Labs and vitals reviewed- afebrile Right heel cleasned with saline, optifoam applied to the heel Foot wound does not appear clinically infected at this time Offloading boots reapplied, to remain on at all times while patient in bed Podiatry will continue to follow patient
[2017-11-20] MEDS: (Novolog) Insulin Aspart, Recombinant 100 u/ml 10 ml vial SC SCH ×4 (01:32→18:50)
[2017-11-20] MEDS: Ipratropium 0.02% Inhal Soln (0.5 mg/2.5 ml) UD IH SCH ×4 (04:16→20:40)
--- NOTE | 2017-11-20 08:56 | CP.PCM.PN ---
<Aubree García - Last Filed: 11/20/17 08:58> Subjective - Date & Time of Evaluation Date of Evaluation: 11/20/17 Time of Evaluation: 08:53 - Subjective Subjective: Medicine Progress Note: Hospitalist Service Patient seen and examined at bedside. Per nursing no acute events. Patient is alert and awake. Not following commands however he is smiling and moving extremities. ROS not obtained. Objective - Vital Signs/Intake and Output Vital Signs (last 24 hours): Temp Pulse Resp BP Pulse Ox 98.8 F 111 H 21 146/82 98 11/20/17 07:59 11/20/17 07:59 11/20/17 07:59 11/20/17 07:59 11/20/17 07:59 Intake and Output: 11/20/17 11/20/17 06:59 18:59 Intake Total 760 760 Output Total 350 150 Balance 410 610 - Medications Medications: Current Medications Ascorbic Acid (Vitamin C 500 Mg Tab) 500 mg PEG DAILY [facility] Last Admin: 11/19/17 09:29 Dose: 500 mg Aspirin (Aspirin Chewable) 81 mg PO DAILY [facility] Last Admin: 11/19/17 09:25 Dose: 81 mg Calcitriol (Rocaltrol) 0.25 mcg PEG DAILY [facility] Last Admin: 11/19/17 09:25 Dose: 0.25 mcg Calcium Acetate (Phoslo) 2,001 mg GT TIDCC [facility] Last Admin: 11/20/17 08:45 Dose: 2,001 mg Epoetin Chencho (Procrit) 10,000 unit IV MWF [facility] Last Admin: 11/18/17 12:01 Dose: 10,000 unit Famotidine (Pepcid) 20 mg PEG DAILY [facility] Last Admin: 11/19/17 09:25 Dose: 20 mg Heparin Sodium (Porcine) (Heparin) 3,700 units IVP MWF [facility] Last Admin: 11/18/17 12:24 Dose: 3,700 units Imipenem/Cilastatin Sodium 500 (mg/ Sodium Chloride) 100 mls @ 100 mls/hr IV Q12H [facility] Last Admin: 11/20/17 06:04 Dose: 100 mls/hr Insulin Aspart (Novolog) 0 unit SC Q6 [facility] PRN Reason: Protocol Last Admin: 11/20/17 06:10 Dose: 4 unit Insulin Detemir (Levemir) 35 unit SC Q12 [facility] Last Admin: 11/19/17 22:02 Dose: 35 unit Ipratropium [place] (Atrovent) 0.5 mg IH RQ6 [facility] Last Admin: 11/20/17 07:35 Dose: 0.5 mg Loperamide HCl (Imodium) 1 mg PO Q4H PRN PRN Reason: Diarrhea Last Admin: 11/04/17 21:10 Dose: 1 mg Metoprolol Tartrate (Lopressor) 12.5 mg PEG BID [facility] Last Admin: 11/19/17 18:27 Dose: 12.5 mg Midodrine (Proamatine) 10 mg PO TID [facility] Last Admin: 11/19/17 18:28 Dose: Not Given Multivitamins (Hexavitamin) 1 tab PEG DAILY [facility] Last Admin: 11/19/17 09:24 Dose: 1 tab Rosuvastatin Calcium (Crestor) 10 mg PEG HS [facility] Last Admin: 11/19/17 22:01 Dose: 10 mg Saccharomyces Boulardii (Florastor) 250 mg PEG BID [facility] Last Admin: 11/19/17 18:26 Dose: 250 mg Vitamin A (Vitamin A & D Oint Ud Foilpak) 0.5 ea TOP Q1H PRN PRN Reason: Dry skin Last Admin: 11/15/17 10:25 Dose: 0.5 ea - Labs Labs: 11/19/17 07:15 11/19/17 07:15 PT 13.4 SECONDS (9.7-12.2) H 10/14/17 16:30 INR 1.2 10/14/17 16:30 APTT 28 SECONDS (21-34) 10/14/17 16:30 - Constitutional Appears: Well, No Acute Distress - Head Exam Head Exam: ATRAUMATIC, NORMAL INSPECTION - Eye Exam Eye Exam: EOMI, Normal appearance - ENT Exam ENT Exam: Mucous Membranes Moist - Neck Exam Additional comments: +trach collar - Respiratory Exam Respiratory Exam: Decreased Breath Sounds, NORMAL BREATHING PATTERN. absent: Accessory Muscle Use, Respiratory Distress - Cardiovascular Exam Cardiovascular Exam: Tachycardia, REGULAR RHYTHM, +S1, +S2. absent: Murmur - GI/Abdominal Exam GI & Abdominal Exam: Soft, Normal Bowel Sounds. absent: Firm, Guarding, Rigid, Tenderness Additional comments: +peg tube - Rectal Exam Rectal Exam: Deferred Additional comments: +rectal tube - Extremities Exam Additional comments: +right heel ulcer (unstageable) - Back Exam Additional comments: Unstageable sacral decubitus ulcer that is now extending into ischial tuberosities Bilateral hip ulcers (stage 2) - Neurological Exam Neurological Exam: Alert, Awake - Skin Skin Exam: Normal Color, Warm <Mariangel Lazar V - Last Filed: 11/20/17 16:44> Objective - Vital Signs/Intake and Output Vital Signs (last 24 hours): Temp Pulse Resp BP Pulse Ox 98.9 F 122 H 20 146/82 94 L 11/20/17 15:00 11/20/17 15:00 11/20/17 15:00 11/20/17 07:59 11/20/17 15:00 Intake and Output: 11/20/17 11/20/17 06:59 18:59 Intake Total 760 1420 Output Total 350 400 Balance 410 1020 - Medications Medications: Current Medications Ascorbic Acid (Vitamin C 500 Mg Tab) 500 mg PEG DAILY [facility] Last Admin: 11/20/17 09:48 Dose: 500 mg Aspirin (Aspirin Chewable) 81 mg PO DAILY [facility] Last Admin: 11/20/17 09:48 Dose: 81 mg Calcitriol (Rocaltrol) 0.25 mcg PEG DAILY [facility] Last Admin: 11/20/17 10:51 Dose: 0.25 mcg Calcium Acetate (Phoslo) 2,001 mg GT TIDCC [facility] Last Admin: 11/20/17 13:10 Dose: 2,001 mg Epoetin [place] (Procrit) 10,000 unit IV MWF [facility] Last Admin: 11/18/17 12:01 Dose: 10,000 unit Famotidine (Pepcid) 20 mg PEG DAILY [facility] Last Admin: 11/20/17 09:48 Dose: 20 mg Imipenem/Cilastatin Sodium 500 (mg/ Sodium Chloride) 100 mls @ 100 mls/hr IV Q12H [facility] Last Admin: 11/20/17 06:04 Dose: 100 mls/hr Insulin Aspart (Novolog) 0 unit SC Q6 [facility] PRN Reason: Protocol Last Admin: 11/20/17 13:09 Dose: 3 unit Insulin Detemir (Levemir) 35 unit SC Q12 [facility] Last Admin: 11/20/17 10:50 Dose: 35 unit Ipratropium [place] (Atrovent) 0.5 mg IH RQ6 [facility] Last Admin: 11/20/17 14:11 Dose: 0.5 mg Loperamide HCl (Imodium) 1 mg PO Q4H PRN PRN Reason: Diarrhea Last Admin: 11/04/17 21:10 Dose: 1 mg Midodrine (Proamatine) 10 mg PO TID [facility] Last Admin: 11/20/17 15:16 Dose: Not Given Multivitamins (Hexavitamin) 1 tab PEG DAILY [facility] Last Admin: 11/20/17 09:48 Dose: 1 tab Rosuvastatin Calcium (Crestor) 10 mg PEG HS [facility] Last Admin: 11/19/17 22:01 Dose: 10 mg Saccharomyces Boulardii (Florastor) 250 mg PEG BID [facility] Last Admin: 11/20/17 09:48 Dose: 250 mg Vitamin A (Vitamin A & D Oint Ud Foilpak) 0.5 ea TOP Q1H PRN PRN Reason: Dry skin Last Admin: 11/15/17 10:25 Dose: 0.5 ea - Labs Labs: 11/20/17 11:00 11/20/17 11:00 PT 13.4 SECONDS (9.7-12.2) H 10/14/17 16:30 INR 1.2 10/14/17 16:30 APTT 28 SECONDS (21-34) 10/14/17 16:30 Attending/Attestation - Attestation I have personally seen and examined this patient.: Yes I have fully participated in the care of the patient.: Yes I have reviewed all pertinent clinical information, including history, physical exam and plan: Yes Notes (Text): Patient seen, examined, and case discussed with daytime resident. Patient seen this morning. Patient no acute distress. On my exam patient does have audible secretions and advised nursing staff to suction. We are awaiting patient's decision in regards to discharge planning. We have been awaiting this decision since November 17. He had an extensive conversation on November 16 with the use of semiconductor processing group leader to avoid any unclear answers. Given this this is the holiday season is unclear if patient's is avoiding us or celebrating with family the holiday. Patient's placement is pending on 's decision There is no social or case management today and I doubt for tomorrow on . We will continue to monitor. Patient had mild hyperkalemia of 5.8 patient did receive his coverage insulin today in given a stat dose of Duonebs and Kalexate. Assessment/Plans 1). Hx Acute Respiratory Failure/ARDS/Cadiac Arrest/NSTEMI: * Dr Cortés (cardiology) on the case-->help appreciated * Dr. Mena (pulmonary) on the case-->help appreciated * Code Blue on 08/10: asystole, cardiopulmonary resuscitative measures initiated , requiring 3 epis, bicarbonate, ROSC achieved and intubated and brought to the ICU. Patient has had multiple for hypotension. Latest ACADEMIC DIRECTOR was on 10/14--> transferred to Regular and on the floors. * Atrovent 0.5mg Inhaled RQ6H * Aspirin 81mg PO daily * Lopressor 12.5mg PO BID with holding parameters * Midodrine 10mg PO TID * Crestor 10mg PO qHS 2). Hx Abnormal Stress Test/AICD/CAD: * Dr Cortés (cardiology) on the case-->help appreciated * Dr. Mena (pulmonary) on the case-->help appreciated * Code Blue on 08/10: asystole, cardiopulmonary resuscitative measures initiated , requiring 3 epis, bicarbonate, ROSC achieved and intubated and brought to the ICU. Patient has had multiple for hypotension. Latest ACADEMIC DIRECTOR was on 10/14/17 * Aspirin 81mg PO daily * Lopressor 12.5mg PO BID with holding parameters * Midodrine 10mg PO TID * Crestor 10mg PO qHS 3). Hx Atrial Flutter: * Lopressor 12.5mg PO BID with holding parameters * Unable to anticoagulate secondary to occult stool blood 4). Hx Acute on Chronic Systolic HF * Aspirin 81mg PO daily * Lopressor 12.5mg PO BID with holding parameters * Midodrine 10mg PO TID * Crestor 10mg PO qHS * Lisinopril was discontinued on 10/14/17 at the time of ACADEMIC DIRECTOR for Hypotension 5). Leukocytosis * Infectious Disease (Dr. Lawrence) on the case-->help appreciated * Blood Culture 10/22/17 is finalized as negative. * Sputum culture 10/14/17 is negative. * Stool cultures 10/20/17 are negative. 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 * Right Arm Midline Tip 10/06/17 culture is negative and removed. Midline Tip Culture 10/26/17 is negative. * Blood Cultures 10/28/17 are negative to date. * Iv ABx: Cefepime (10/12/17 through 10/24/17), Aztreonam (10/13/17 through )), Diflucan (10/14/17 through 10/26/17). * Off Meropenem 500 mg IV Q8H (10/28;), Micafungin 100 mg IV Q24H (10/27/17 ) * Started on Primaxin given shortage on Meropenem * Primaxin 500mg IVQ12 (active since 11/17/17) * I spoke with 11/02, she does not want Permacath replaced given cardiac risk for operation/anesthesia and reaffirmed on 11/16. * ID Recommended for permcath and sacral debridement by ID, has refused 11/02. * Sacral ulcer unstageable; Wound care is on board 6). Hx Pneumonia, Fungemia * ID on the case-->help appreciated * Currently on Meropenem 500 mg IV Q8H (10/28/17-), Micofungin 100 mg IV Q24H ( 10/27/17-present). * Started on Primaxin given shortage on Meropenem * Primaxin 500mg IVQ12 (active since 11/17/17) * I spoke with 11/02, she does not want Permacath replaced given cardiac risk for operation/anesthesia. * ID Recommended for permcath and sacral debridement by ID, has refused 11/02 and 11/16. * Sacral ulcer unstageable; Wound care is on board 7). Hx HTN: * Lopressor 12.5mg PEG BID with holding parameters 8). Hx CKD on HD M--. * Family would like to continue HD through current Permacath and declined surgical intervention to change catheter (due to the Blood Culture 10/24/17 being positive for Reny glabrata) as recommended by Vascular Surgery and Infectious Disease. * I discussed with at bedside 11/02, she continues to deny the exchange secondary to cardiac risk. * Phoslo 2001mg GT TIDCC * Epocrit 10,000 unit IV MWF 9). Hx DM: * Levemir 35 units [id number] * monitor [id number] * HgbA1c 8.4 10). Hx HLD * Crestor 10mg PO qHS 11). Hx Anemia: * Eliquis stopped 10/24/17 secondary to positive stool occult blood * Stool Occult is Positive and GI Dr. Dsouza was reconsulted however no further workup recommended in light of patient current status. * Procrit 10,000 units M-W-F * s/p1 unit of PRBC 11/04 given declining H/H * HgB/Hct are currently stable 12). Hx DVT; Left upper Extremity DVT+ * Eliquis stopped 10/24/17 given positive bloody stool * Repeat dopplers LE 08/09/17 are negative for DVT * Left UE Doppler 11/08/17 was POSITIVE for DVTs in Left Brachial and Left Axillary Veins: Can NOT anticoagulate due to history of bleeding (requiring blood transfusion) with anticoagulation 13). Hx UTI: * Yeast on culture 10/24/17. He is currently on Micafungin 100 mg IV Q24H. He may be colonized with this. * ID Recommended for permcath and sacral debridement by ID, has refused 11/02 and confirmed 11/16 14). Hx Alzheimer's Dementia * CT head w/o contrast (08/10/17):acute os subacute lacune infarct is not excluded in the left basal ganglia inferiorly with definitive chronic lacune identified in the right basal ganglia superiorly. No acute or subacute lobar brain infarction is appreciable by standard CT criteria. Mild age-related neuro * CT Head w/o contrast (10/14/17): no intracranial mass, hemorrhage, or evidence of acute infarct. 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 Old right external capsule ischemic change. Age related atrophy and chronic microvascular ischemic change 15). Hx Sacral Ulcer: * General surgery (Dr. Forbes) on board-->help appreciated * Bone Scan performed 09/17/17 to check for Osteomyelitis at the Sacrum: negative for osteomyelitis * Currently on MediHoney daily, family has declined further debridement by surgery. Wound care on board * Recommended for permcath and sacral debridement by ID, has refused 11/02 16). Hx Right Heal Ulcer * Podiatry (Dr. Lundberg) on board-->help appreciated * Prevalon boots * unstageable 17). Hx Elevated LFTs * Normalized; patient is on statin and Micafungin 18). Diarrhea: * On Rectal Seal and producing dark brown/black stools that are watery. Stool Studies 10/20/17 are negative * On loperamide PRN 19). Hx Hyponatremia: * Normalized 20). Hx PEG Tube: * Vital 1.5 at 50 ml/hour 21). Hx Hypocalcemia: * Calcitriol 22). Prophylactic Measures: * Vitamin C, Dulcolax PRN, Pepcid, MVI, Zofran PRN, Florastor * Started on dialysis 08/15/17 * s/p Right Chest Permcath 08/22/17--->Recommended by ID to exchange out but has refused. Reaffirmed on 11/16/17 conversation. * S/P Tracheostomy 08/22/17 * S/P Peg tube placement 08/25/17 * S/p insertion of right posterior chest tube 08/19-->removed 08/24/17 * Passy [place] Trach placed 09/15/17 * s/p new mid line (left upper extremity) 10/26/17 prior mid line removed and tip sent for culture and was negative. Midline left arm was removed 11/06/17 due to bleeding from site. NO Midline/PICC can be placed on Right UE due to the Right [id number]-K-Powm and can not be placed on the Left UE due to the Left Brachia/ Axillary DVTs * (Jovita Serrano): * Patient is now: DNR * Palliative care on board * Bioethics consult () to evaluated-->notes under patient care-- Patient's may make decision. * F/u case management regarding patient's insurance and placement 11/08/17: Per my colleague Dr. Deepthi Barth, who had extensive conversation with today at the time of exam. 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 If debridement did take place then there would be no guarantees that this would improve considering his multiple comorbidities and that this will also likely be extremely painful to patient. Also that if these areas were not debrided, then we ran the risk for sepsis as well osteomyelitis. So unfortunately this placed us between a rock and a hard place concerning this issue. Considering this, I asked her to consider Hospice and explained to her that this would involve discontinuing HD, antibiotics and would involve making him as comfortable as possible. I have reached out to Palliative Care Nurse Domitila and explained to that Nurse Ramesh will speak with her 11/09/17. also asked about the possibility of spinal anesthesia for the debridement and I told her that I would check with the surgery team but also reminded her of the original concerns about patient pain after the procedure and likelihood of lack of improvement considering the multiple comorbidities. 11/09/17: Nurse Ramesh spoke with via phone (concerning what Dr. Deepthi Barth discussed with her in person on 11/08/17) and will meet with her on 11/10. 11/10/17: Nurse Ramesh met with . [facility] that may be undocumented and relies on patient's benefits for financial source. Considering my conversation with patient on 11/08/17, Dr. Deepthi Barth have ordered BioEthics consultation for further recommendations. Nurse Ramesh will speak with BioEthics Dr. Renan Bowles whose help will be appreciated concerning this issue. 11/11-: Awaiting BioEthics evaluation. 11/15/17: per Bioethics consult: This patient has been here for five months (9-8 ) to present. He was admitted with shortness of breath and chest pain. Over these months his condition has deteriorated. He is now in need of heavy care. His expressed worry and concern. She agreed to a DNR. The consult involves the conflict of the not agreeing with placing her on comfort care. Bio-ethics committee recommends approaching the family again in light of insurance changes to place the patient in a long-term care facility ( [facility]), or for the family to prepare for home health care if hospice will not be considered, even though it is thought appropriate for this patient. 11/16/17: Family meeting at 5:30PM with Diesel Technician Sue, flume worker Glenn, Resident Ricky, with patient's . Assistance with Translation Micky Loya #[id number] Occitan Intrepretor.. Reviewed where does the patient go from the hospitalization and available options. Patient's has affirmed with definitive "NO" to surgical intervention which includes debridement of the sacrum, fistula placement, nor exchange out the permacath given the cardiac risk for any operation. This was explained to her very clearly. Patient's has affirmed with definitive "NO" to comfort care and no hospice care. She wants to continue to current therapy including dialysis and trach care treatment. She has affirmed "YES" to DNR. She reports if Gods's will to let him go naturally. Her example she reports if he has a heart attack, let him go. She recalls and reaffirms prior conversations with both my colleague Dr. Cullen Barth and affirms her POLST created with Maryann, Palliative Care nurse. She is aware there is pain associated with the sacrum wound. Glenn flume worker explained the options available for the patient as listed as below Options: 1#: higher level facility to provide highly care specialized nursing for trach care and will need close distance to support dialysis 2#: hospice 3#: home. chooses option 1 in light of conversation as stated above in regards to Option 2. Given the great level of care he will need, not bring the patient home , which appears overwhelmed and affirms. has affirmed Option#1. However, decision regards which location is something she needs more time to think about. Social work has discussed in extensive detail in regards to locations in [place], [place] and [place], [place] for trach care and located dialysis center. There is no location in [facility] to support the level care that patient requires; which was explained by the social work. Social work works will try to work with given concerns including transportation, cost, and reports is available to answer any questions. has not made decision, needs time to think about it, will given decision tomorrow. 11/17-: We are awaiting 's decision in light of 11/16/17 conversation.
[2017-11-20] MEDS: Multiple Vitamins Tab PEG SCH (09:48)
[2017-11-20] MEDS: Saccharomyces Boulardi 250 mg Cap PEG SCH ×2 (09:48→18:55)
[2017-11-20] MEDS: Insulin Detemir 100 units/ml Vial (Levemir) SC SCH ×2 (10:50→21:42)
[2017-11-20 11:11] LABS: BASO # 0.2 K/uL (0.0-0.2); EOS # 0.3 K/uL (0.0-0.7); EOS % 1.5 % (0.0-4.0); HEMATOCRIT 29.8 % (35.0-51.0); LYMPH # 1.3 K/uL (1.0-4.3); LYMPH % 7.1 % (20.0-40.0); MEAN CELL VOLUME 91.5 fL (80.0-94.0); MEAN CORPUSCULAR HEMOGLOBIN 29.6 pg (27.0-31.0); MEAN CORPUSCULAR HGB CONC 32.3 g/dL (33.0-37.0); MEAN PLATELET VOLUME 7.7 fL (7.2-11.7); MONO # 0.9 K/uL (0.0-0.8); MONO % 5.2 % (0.0-10.0); NRBC % 0.1 % (0.0-2.0); PLATELET COUNT 642 K/uL (130-400); RED CELL DISTRIBUTION WIDTH 19.6 % (11.5-14.5); WHITE BLOOD COUNT 17.7 K/uL (4.8-10.8)
[2017-11-20 11:22] LABS: ALB/GLOB RATIO 0.7 (1.0-2.1); BILIRUBIN,TOTAL 0.4 mg/dL (0.2-1.3); CALCIUM 8.4 mg/dl (8.6-10.4); POTASSIUM 5.8 mmol/L (3.6-5.2)
[2017-11-20 11:38] LABS: EOSINOPHIL 1 % (0-4); TOTAL CELLS COUNTED 100
[2017-11-20 11:39] LABS: NEUTROPHIL 89 % (50-75)
[2017-11-20] MEDS ORDERED: Albuterol-Ipratrop 3 mg / 0.5 (3 ml) UD INH STA (12:12)
[2017-11-20] MEDS ORDERED: Sod Polystyrene Sulf 15 gm/60 ml Susp PEG ONE (12:12)
--- NOTE | 2017-11-20 19:05 | CP.PCM.PN ---
Subjective - Date & Time of Evaluation Date of Evaluation: 11/20/17 Time of Evaluation: 05:00 - Subjective Subjective: dictated Objective - Vital Signs/Intake and Output Vital Signs (last 24 hours): Temp Pulse Resp BP Pulse Ox 98.9 F 122 H 20 146/82 94 L 11/20/17 15:00 11/20/17 15:00 11/20/17 15:00 11/20/17 07:59 11/20/17 15:00 Intake and Output: 11/20/17 11/21/17 18:59 06:59 Intake Total 1420 Output Total 400 Balance 1020 - Medications Medications: Current Medications Ascorbic Acid (Vitamin C 500 Mg Tab) 500 mg PEG DAILY [facility] Last Admin: 11/20/17 09:48 Dose: 500 mg Aspirin (Aspirin Chewable) 81 mg PO DAILY [facility] Last Admin: 11/20/17 09:48 Dose: 81 mg Calcitriol (Rocaltrol) 0.25 mcg PEG DAILY [facility] Last Admin: 11/20/17 10:51 Dose: 0.25 mcg Calcium Acetate (Phoslo) 2,001 mg GT TIDCC [facility] Last Admin: 11/20/17 13:10 Dose: 2,001 mg Epoetin Chencho (Procrit) 10,000 unit IV MWF [facility] Last Admin: 11/18/17 12:01 Dose: 10,000 unit Famotidine (Pepcid) 20 mg PEG DAILY [facility] Last Admin: 11/20/17 09:48 Dose: 20 mg Imipenem/Cilastatin Sodium 500 (mg/ Sodium Chloride) 100 mls @ 100 mls/hr IV Q12H [facility] Last Admin: 11/20/17 06:04 Dose: 100 mls/hr Insulin Aspart (Novolog) 0 unit SC Q6 [facility] PRN Reason: Protocol Last Admin: 11/20/17 13:09 Dose: 3 unit Insulin Detemir (Levemir) 35 unit SC Q12 [facility] Last Admin: 11/20/17 10:50 Dose: 35 unit Ipratropium [place] (Atrovent) 0.5 mg IH RQ6 [facility] Last Admin: 11/20/17 14:11 Dose: 0.5 mg Loperamide HCl (Imodium) 1 mg PO Q4H PRN PRN Reason: Diarrhea Last Admin: 11/04/17 21:10 Dose: 1 mg Midodrine (Proamatine) 10 mg PO TID [facility] Last Admin: 11/20/17 15:16 Dose: Not Given Multivitamins (Hexavitamin) 1 tab PEG DAILY [facility] Last Admin: 11/20/17 09:48 Dose: 1 tab Rosuvastatin Calcium (Crestor) 10 mg PEG HS [facility] Last Admin: 11/19/17 22:01 Dose: 10 mg Saccharomyces Boulardii (Florastor) 250 mg PEG BID [facility] Last Admin: 11/20/17 09:48 Dose: 250 mg Vitamin A (Vitamin A & D Oint Ud Foilpak) 0.5 ea TOP Q1H PRN PRN Reason: Dry skin Last Admin: 11/15/17 10:25 Dose: 0.5 ea - Labs Labs: 11/20/17 11:00 11/20/17 11:00 PT 13.4 SECONDS (9.7-12.2) H 10/14/17 16:30 INR 1.2 10/14/17 16:30 APTT 28 SECONDS (21-34) 10/14/17 16:30
--- NOTE | 2017-11-20 20:43 | CP.PCM.PN ---
Subjective - Date & Time of Evaluation Date of Evaluation: 11/20/17 Time of Evaluation: 15:45 - Subjective Subjective: Patient seen and evaluated Non verbal and does not follow commands No cardiac events Objective - Vital Signs/Intake and Output Vital Signs (last 24 hours): Temp Pulse Resp BP Pulse Ox 98.8 F 108 H 20 140/80 95 11/20/17 15:30 11/20/17 15:30 11/20/17 15:30 11/20/17 15:30 11/20/17 15:30 Intake and Output: 11/20/17 11/21/17 18:59 06:59 Intake Total 1420 Output Total 400 Balance 1020 - Medications Medications: Current Medications Ascorbic Acid (Vitamin C 500 Mg Tab) 500 mg PEG DAILY [facility] Last Admin: 11/20/17 09:48 Dose: 500 mg Aspirin (Aspirin Chewable) 81 mg PO DAILY [facility] Last Admin: 11/20/17 09:48 Dose: 81 mg Calcitriol (Rocaltrol) 0.25 mcg PEG DAILY [facility] Last Admin: 11/20/17 10:51 Dose: 0.25 mcg Calcium Acetate (Phoslo) 2,001 mg GT TIDCC [facility] Last Admin: 11/20/17 17:55 Dose: 2,001 mg Epoetin Chencho (Procrit) 10,000 unit IV MWF [facility] Last Admin: 11/18/17 12:01 Dose: 10,000 unit Famotidine (Pepcid) 20 mg PEG DAILY [facility] Last Admin: 11/20/17 09:48 Dose: 20 mg Imipenem/Cilastatin Sodium 500 (mg/ Sodium Chloride) 100 mls @ 100 mls/hr IV Q12H [facility] Last Admin: 11/20/17 19:48 Dose: 100 mls/hr Insulin Aspart (Novolog) 0 unit SC Q6 [facility] PRN Reason: Protocol Last Admin: 11/20/17 18:50 Dose: 1 unit Insulin Detemir (Levemir) 35 unit SC Q12 [facility] Last Admin: 11/20/17 10:50 Dose: 35 unit Ipratropium [place]y (Atrovent) 0.5 mg IH RQ6 [facility] Last Admin: 11/20/17 20:40 Dose: 0.5 mg Loperamide HCl (Imodium) 1 mg PO Q4H PRN PRN Reason: Diarrhea Last Admin: 11/04/17 21:10 Dose: 1 mg Midodrine (Proamatine) 10 mg PO TID [facility] Last Admin: 11/20/17 19:47 Dose: Not Given Multivitamins (Hexavitamin) 1 tab PEG DAILY [facility] Last Admin: 11/20/17 09:48 Dose: 1 tab Rosuvastatin Calcium (Crestor) 10 mg PEG HS [facility] Last Admin: 11/19/17 22:01 Dose: 10 mg Saccharomyces Boulardii (Florastor) 250 mg PEG BID [facility] Last Admin: 11/20/17 18:55 Dose: 250 mg Vitamin A (Vitamin A & D Oint Ud Foilpak) 0.5 ea TOP Q1H PRN PRN Reason: Dry skin Last Admin: 11/15/17 10:25 Dose: 0.5 ea - Labs Labs: 11/20/17 11:00 11/20/17 11:00 PT 13.4 SECONDS (9.7-12.2) H 10/14/17 16:30 INR 1.2 10/14/17 16:30 APTT 28 SECONDS (21-34) 10/14/17 16:30
--- NOTE | 2017-11-20 23:03 | PN ---
SUBJECTIVE: Patient remains with eyes open today, I saw him first time more awake. He is not, however, able to communicate due the trach. The trach appears unremarkable. PHYSICAL EXAMINATION: LUNGS: Bilateral rhonchi and he needed suctioning and male nurse suctioned him. ABDOMEN: Remains nontender. No guarding. No rigidity present. PEG tube present. EXTREMITIES: Have boots on and he has a sacral decubitus. LABORATORY DATA: His labs, however, have crept down to17.7, hemoglobin 9.6, hematocrit 29.8, platelet remains 264. Potassium is 5.8, chlorides are 130, creatinine is 2.6. ASSESSMENT AND PLAN: He is a dialysis patient, on chronic dialysis. He remains on imipenem at this time, 500, q. 12 hours. We will continue this and if he remains afebrile and his white count decreases further, maybe on Tuesday we can take off the antibiotic, but he does have an unstageable decubitus. So, I am not sure if we will be able to get him off the antibiotics. Allan Lawrence MD
[2017-11-21] MEDS: (Novolog) Insulin Aspart, Recombinant 100 u/ml 10 ml vial SC SCH ×4 (00:35→18:46)
[2017-11-21] MEDS: Ipratropium 0.02% Inhal Soln (0.5 mg/2.5 ml) UD IH SCH ×5 (00:53→19:47)
--- NOTE | 2017-11-21 01:28 | CP.PCM.PN ---
<Sina White - Last Filed: 11/21/17 01:26> Subjective - Date & Time of Evaluation Date of Evaluation: 11/21/17 Time of Evaluation: 01:26 - Subjective Subjective: Patient seen and examined at bedside. No changes at this time. ROS unattainable. Objective - Vital Signs/Intake and Output Vital Signs (last 24 hours): Temp Pulse Resp BP Pulse Ox 98.7 F 108 H 23 120/58 L 96 11/21/17 00:00 11/20/17 15:30 11/21/17 00:00 11/21/17 00:00 11/21/17 00:00 Intake and Output: 11/20/17 11/21/17 18:59 06:59 Intake Total 1420 760 Output Total 400 300 Balance 1020 460 - Medications Medications: Current Medications Ascorbic Acid (Vitamin C 500 Mg Tab) 500 mg PEG DAILY [facility] Last Admin: 11/20/17 09:48 Dose: 500 mg Aspirin (Aspirin Chewable) 81 mg PO DAILY [facility] Last Admin: 11/20/17 09:48 Dose: 81 mg Calcitriol (Rocaltrol) 0.25 mcg PEG DAILY [facility] Last Admin: 11/20/17 10:51 Dose: 0.25 mcg Calcium Acetate (Phoslo) 2,001 mg GT TIDCC [facility] Last Admin: 11/20/17 17:55 Dose: 2,001 mg Epoetin Chencho (Procrit) 10,000 unit IV MWF [facility] Last Admin: 11/18/17 12:01 Dose: 10,000 unit Famotidine (Pepcid) 20 mg PEG DAILY [facility] Last Admin: 11/20/17 09:48 Dose: 20 mg Imipenem/Cilastatin Sodium 500 (mg/ Sodium Chloride) 100 mls @ 100 mls/hr IV Q12H [facility] Last Admin: 11/20/17 19:48 Dose: 100 mls/hr Insulin Aspart (Novolog) 0 unit SC Q6 [facility] PRN Reason: Protocol Last Admin: 11/21/17 00:35 Dose: 2 unit Insulin Detemir (Levemir) 35 unit SC Q12 [facility] Last Admin: 11/20/17 21:42 Dose: 35 unit Ipratropium Dwight (Atrovent) 0.5 mg IH RQ6 [facility] Last Admin: 11/21/17 00:53 Dose: 0.5 mg Loperamide HCl (Imodium) 1 mg PO Q4H PRN PRN Reason: Diarrhea Last Admin: 11/04/17 21:10 Dose: 1 mg Midodrine (Proamatine) 10 mg PO TID [facility] Last Admin: 11/20/17 19:47 Dose: Not Given Multivitamins (Hexavitamin) 1 tab PEG DAILY [facility] Last Admin: 11/20/17 09:48 Dose: 1 tab Rosuvastatin Calcium (Crestor) 10 mg PEG HS [facility] Last Admin: 11/20/17 21:37 Dose: 10 mg Saccharomyces Boulardii (Florastor) 250 mg PEG BID [facility] Last Admin: 11/20/17 18:55 Dose: 250 mg Vitamin A (Vitamin A & D Oint Ud Foilpak) 0.5 ea TOP Q1H PRN PRN Reason: Dry skin Last Admin: 11/15/17 10:25 Dose: 0.5 ea - Labs Labs: 11/20/17 11:00 11/20/17 11:00 PT 13.4 SECONDS (9.7-12.2) H 10/14/17 16:30 INR 1.2 10/14/17 16:30 APTT 28 SECONDS (21-34) 10/14/17 16:30 - Additional Findings Additional findings: - Constitutional Appears: Well, No Acute Distress - Head Exam Head Exam: ATRAUMATIC, NORMAL INSPECTION - Eye Exam Eye Exam: EOMI, Normal appearance - ENT Exam ENT Exam: Mucous Membranes Moist - Neck Exam Additional comments: +trach collar - Respiratory Exam Respiratory Exam: Decreased Breath Sounds, NORMAL BREATHING PATTERN. absent: Accessory Muscle Use, Respiratory Distress - Cardiovascular Exam Cardiovascular Exam: Tachycardia, REGULAR RHYTHM, +S1, +S2. absent: Murmur - GI/Abdominal Exam GI & Abdominal Exam: Soft, Normal Bowel Sounds. absent: Firm, Guarding, Rigid, Tenderness Additional comments: +peg tube - Rectal Exam Rectal Exam: Deferred Additional comments: +rectal tube - Extremities Exam Additional comments: +right heel ulcer (unstageable) - Back Exam Additional comments: Unstageable sacral decubitus ulcer that is now extending into ischial tuberosities Bilateral hip ulcers (stage 2) - Neurological Exam Neurological Exam: Alert, Awake - Skin Skin Exam: Normal Color, Warm Assessment and Plan - Assessment and Plan (Free Text) Assessment: Assessment/Plans 1). Hx Acute Respiratory Failure/ARDS/Cadiac Arrest/NSTEMI: * Dr Cortés (cardiology) on the case-->help appreciated * Dr. Mena (pulmonary) on the case-->help appreciated * Code Blue on 08/10: asystole, cardiopulmonary resuscitative measures initiated , requiring 3 epis, bicarbonate, ROSC achieved and intubated and brought to the ICU. Patient has had multiple for hypotension. Latest PATENT DRAFTER was on 10/14--> transferred to [facility] and on the floors. * Atrovent 0.5mg Inhaled RQ6H * Aspirin 81mg PO daily * Lopressor 12.5mg PO BID with holding parameters * Midodrine 10mg PO TID * Crestor 10mg PO qHS 2). Hx Abnormal Stress Test/AICD/CAD: * Dr Cortés (cardiology) on the case-->help appreciated * Dr. Mena (pulmonary) on the case-->help appreciated * Code Blue on 08/10: asystole, cardiopulmonary resuscitative measures initiated , requiring 3 epis, bicarbonate, ROSC achieved and intubated and brought to the ICU. Patient has had multiple for hypotension. Latest PATENT DRAFTER was on 10/14/17 * Aspirin 81mg PO daily * Lopressor 12.5mg PO BID with holding parameters * Midodrine 10mg PO TID * Crestor 10mg PO qHS 3). Hx Atrial Flutter: * Lopressor 12.5mg PO BID with holding parameters * Unable to anticoagulate secondary to occult stool blood 4). 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 Leukocytosis * Infectious Disease (Dr. Lawrence) on the case-->help appreciated * Blood Culture 10/22/17 is finalized as negative. * Sputum culture 10/14/17 is negative. * Stool cultures 10/20/17 are negative. 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 * Right Arm Midline Tip 10/06/17 culture is negative and removed. Midline Tip Culture 10/26/17 is negative. * Blood Cultures 10/28/17 are negative to date. * Iv ABx: Cefepime (10/12/17 through 10/24/17), Aztreonam (10/13/17 through )), Diflucan (10/14/17 through 10/26/17). * Off Meropenem 500 mg IV Q8H (10/28;), Micafungin 100 mg IV Q24H (10/27/17 ) * Started on Primaxin given shortage on Meropenem * Primaxin 500mg IVQ12 (active since 11/17/17) * I spoke with 11/02, she does not want Permacath replaced given cardiac risk for operation/anesthesia and reaffirmed on 11/16. * ID Recommended for permcath and sacral debridement by ID, has refused 11/02. * Sacral ulcer unstageable; Wound care is on board 6). Hx Pneumonia, Fungemia * ID on the case-->help appreciated * Currently on Meropenem 500 mg IV Q8H (10/28/17-), Micofungin 100 mg IV Q24H ( 10/27/17-present). * Started on Primaxin given shortage on Meropenem * Primaxin 500mg IVQ12 (active since 11/17/17) * I spoke with 11/02, she does not want Permacath replaced given cardiac risk for operation/anesthesia. * ID Recommended for permcath and sacral debridement by ID, has refused 11/02 and 11/16. * Sacral ulcer unstageable; Wound care is on board 7). Hx HTN: * Lopressor 12.5mg PEG BID with holding parameters 8). Hx CKD on HD . * Family would like to continue HD through current Permacath and declined surgical intervention to change catheter (due to the Blood Culture 10/24/17 being positive for Reny glabrata) as recommended by Vascular Surgery and Infectious Disease. * I discussed with at bedside 11/02, she continues to deny the exchange secondary to cardiac risk. * Phoslo 2001mg GT TIDCC * Epocrit 10,000 unit IV MWF 9). Hx DM: * Levemir 35 units [id number] * monitor [id number] * HgbA1c 8.4 10). Hx HLD * Crestor 10mg PO qHS 11). Hx Anemia: * Eliquis stopped 11/27/17 secondary to positive stool occult blood * Stool Occult is Positive and GI Dr. Dsouza was reconsulted however no further workup recommended in light of patient current status. * Procrit 10,000 units M-W- * s/p1 unit of PRBC 11/04 given declining H/H * HgB/Hct are currently stable 12). Hx DVT; Left upper Extremity DVT+ * Eliquis stopped 10/24/17 given positive bloody stool * Repeat dopplers LE 08/09/17 are negative for DVT * Left UE Doppler 11/08/17 was POSITIVE for DVTs in Left Brachial and Left Axillary Veins: Can NOT anticoagulate due to history of bleeding (requiring blood transfusion) with anticoagulation 13). Hx UTI: * Yeast on culture 10/24/17. He is currently on Micafungin 100 mg IV Q24H. He may be colonized with this. * ID Recommended for permcath and sacral debridement by ID, has refused 11/02 and confirmed 11/16 14). Hx Alzheimer's Dementia * CT head w/o contrast (08/10/17):acute os subacute lacune infarct is not excluded in the left basal ganglia inferiorly with definitive chronic lacune identified in the right basal ganglia superiorly. No acute or subacute lobar brain infarction is appreciable by standard CT criteria. Mild age-related neuro * CT Head w/o contrast (10/14/17): no intracranial mass, hemorrhage, or evidence of acute infarct. 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 Old right external capsule ischemic change. Age related atrophy and chronic microvascular ischemic change 15). Hx Sacral Ulcer: * General surgery (Dr. Forbes) on board-->help appreciated * Bone Scan performed 09/17/17 to check for Osteomyelitis at the Sacrum: negative for osteomyelitis * Currently on MediHoney daily, family has declined further debridement by surgery. Wound care on board * Recommended for permcath and sacral debridement by ID, has refused 11/02 16). Hx Right Heal Ulcer * Podiatry (Dr. Lundberg) on board-->help appreciated * Prevalon boots * unstageable 17). Hx Elevated LFTs * Normalized; patient is on statin and Micafungin 18). Diarrhea: * On Rectal Seal and producing dark brown/black stools that are watery. Stool Studies 10/20/17 are negative * On loperamide PRN 19). Hx Hyponatremia: * Normalized 20). Hx PEG Tube: * Vital 1.5 at 50 ml/hour 21). Hx Hypocalcemia: * Calcitriol 22). Prophylactic Measures: * Vitamin C, Dulcolax PRN, Pepcid, MVI, Zofran PRN, Florastor * Started on dialysis 08/15/17 * s/p Right Chest Permcath 08/22/17--->Recommended by ID to exchange out but has refused. Reaffirmed on 11/16/17 conversation. * S/P Tracheostomy 08/22/17 * S/P Peg tube placement 08/25/17 * S/p insertion of right posterior chest tube 08/19-->removed 08/24/17 * Passy Flex Trach placed 09/15/17 * s/p new mid line (left upper extremity) 10/26/17 prior mid line removed and tip sent for culture and was negative. Midline left arm was removed 11/06/17 due to bleeding from site. NO Midline/PICC can be placed on Right UE due to the Right [id number] and can not be placed on the Left UE due to the Left Brachia/ Axillary DVTs * (Jovita Serrano): * Patient is now: DNR * Palliative care on board * Bioethics consult () to evaluated-->notes under patient care-- Patient's may make decision. * F/u case management regarding patient's insurance and placement 11/08/17: Per my colleague Dr. Deepthi Barth, who had extensive conversation with today at the time of exam. 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 If debridement did take place then there would be no guarantees that this would improve considering his multiple comorbidities and that this will also likely be extremely painful to patient. Also that if these areas were not debrided, then we ran the risk for sepsis as well osteomyelitis. So unfortunately this placed us between a rock and a hard place concerning this issue. Considering this, I asked her to consider Hospice and explained to her that this would involve discontinuing HD, antibiotics and would involve making him as comfortable as possible. I have reached out to Palliative Care Nurse Domitila and explained to that Nurse Ramesh will speak with her 11/09/17. also asked about the possibility of spinal anesthesia for the debridement and I told her that I would check with the surgery team but also reminded her of the original concerns about patient pain after the procedure and likelihood of lack of improvement considering the multiple comorbidities. 11/09/17: Nurse Ramesh spoke with via phone (concerning what Dr. Deepthi Barth discussed with her in person on 11/08/17) and will meet with her on 11/10. 11/10/17: Nurse Ramesh met with . [place] that may be undocumented and relies on patient's benefits for financial source. Considering my conversation with patient on 11/08/17, Dr. Deepthi Barth have ordered BioEthics consultation for further recommendations. Nurse Ramesh will speak with BioEthics Dr. Renan Bowles whose help will be appreciated concerning this issue. 11/11-: Awaiting BioEthics evaluation. 11/15/17: per Bioethics consult: This patient has been here for five months (9-8 ) to present. He was admitted with shortness of breath and chest pain. Over these months his condition has deteriorated. He is now in need of heavy care. His expressed worry and concern. She agreed to a DNR. The consult involves the conflict of the not agreeing with placing her on comfort care. Bio-ethics committee recommends approaching the family again in light of insurance changes to place the patient in a long-term care facility ( senior living), or for the family to prepare for home health care if hospice will not be considered, even though it is thought appropriate for this patient. 11/16/17: Family meeting at 5:30PM with Mailroom Courier Sue, western tack assembly line worker Glenn, Resident Ricky, with patient's . Assistance with Translation Micky Loya #[id number] O[place]i Intrepretor.. Reviewed where does the patient go from the hospitalization and available options. Patient's has affirmed with definitive "NO" to surgical intervention which includes debridement of the sacrum, fistula placement, nor exchange out the permacath given the cardiac risk for any operation. This was explained to her very clearly. Patient's has affirmed with definitive "NO" to comfort care and no hospice care. She wants to continue to current therapy including dialysis and trach care treatment. She has affirmed "YES" to DNR. She reports if Gods's will to let him go naturally. Her example she reports if he has a heart attack, let him go. She recalls and reaffirms prior conversations with both my colleague Dr. Cullen Barth and affirms her POLST created with Maryann Palliative Care nurse. She is aware there is pain associated with the sacrum wound. Glenn western tack assembly line worker explained the options available for the patient as listed as below Options: 1#: higher level facility to provide highly care specialized nursing for trach care and will need close distance to support dialysis 2#: hospice 3#: home. chooses option 1 in light of conversation as stated above in regards to Option 2. Given the great level of care he will need, not bring the patient home , which appears overwhelmed and affirms. has affirmed Option#1. However, decision regards which location is something she needs more time to think about. Social work has discussed in extensive detail in regards to locations in [place], [place] and [place], [place] for trach care and located dialysis center. There is no location in [facility] to support the level care that patient requires; which was explained by the social work. Social work works will try to work with given concerns including transportation, cost, and reports is available to answer any questions. has not made decision, needs time to think about it, will given decision tomorrow. 11/17-24: We are awaiting 's decision in light of 11/16/17 conversation. <Cullen Barth - Last Filed: 11/21/17 20:21> Objective - Vital Signs/Intake and Output Vital Signs (last 24 hours): Temp Pulse Resp BP Pulse Ox 98.3 F 95 H 26 H 126/64 97 11/21/17 14:35 11/21/17 16:40 11/21/17 14:35 11/21/17 17:40 11/21/17 07:51 - Medications Medications: Current Medications Ascorbic Acid (Vitamin C 500 Mg Tab) 500 mg PEG DAILY [facility] Last Admin: 11/21/17 10:35 Dose: 500 mg Aspirin (Aspirin Chewable) 81 mg PO DAILY [facility] Last Admin: 11/21/17 10:35 Dose: 81 mg Calcitriol (Rocaltrol) 0.25 mcg PEG DAILY [facility] Last Admin: 11/21/17 10:35 Dose: 0.25 mcg Calcium Acetate (Phoslo) 2,001 mg GT TIDCC [facility] Last Admin: 11/21/17 17:50 Dose: Not Given Epoetin Chencho (Procrit) 10,000 unit IV MWF [facility] Last Admin: 11/21/17 16:50 Dose: 10,000 unit Famotidine (Pepcid) 20 mg PEG DAILY [facility] Last Admin: 11/21/17 10:35 Dose: 20 mg Imipenem/Cilastatin Sodium 500 (mg/ Sodium Chloride) 100 mls @ 100 mls/hr IV Q12H [facility] Last Admin: 11/21/17 18:26 Dose: 100 mls/hr Insulin Aspart (Novolog) 0 unit SC Q6 [facility] PRN Reason: Protocol Last Admin: 11/21/17 18:46 Dose: Not Given Insulin Detemir (Levemir) 35 unit SC Q12 [facility] Last Admin: 11/21/17 10:36 Dose: 35 unit Ipratropium Dwight (Atrovent) 0.5 mg IH RQ6 [facility] Last Admin: 11/21/17 19:47 Dose: 0.5 mg Loperamide HCl (Imodium) 1 mg PO Q4H PRN PRN Reason: Diarrhea Last Admin: 11/04/17 21:10 Dose: 1 mg Midodrine (Proamatine) 10 mg PO TID [facility] Last Admin: 11/21/17 17:50 Dose: Not Given Multivitamins (Hexavitamin) 1 tab PEG DAILY [facility] Last Admin: 11/21/17 10:35 Dose: 1 tab Rosuvastatin Calcium (Crestor) 10 mg PEG HS [facility] Last Admin: 11/20/17 21:37 Dose: 10 mg Saccharomyces Boulardii (Florastor) 250 mg PEG BID [facility] Last Admin: 11/21/17 17:49 Dose: Not Given Vitamin A (Vitamin A & D Oint Ud Foilpak) 0.5 ea TOP Q1H PRN PRN Reason: Dry skin Last Admin: 11/15/17 10:25 Dose: 0.5 ea - Labs Labs: 11/21/17 15:01 11/21/17 15:01 PT 13.4 SECONDS (9.7-12.2) H 10/14/17 16:30 INR 1.2 10/14/17 16:30 APTT 28 SECONDS (21-34) 10/14/17 16:30 Attending/Attestation - Attestation I have personally seen and examined this patient.: Yes I have fully participated in the care of the patient.: Yes I have reviewed all pertinent clinical information, including history, physical exam and plan: Yes Notes (Text): 11/21/17 20:19 Patient was seen and examined at 5 PM 11/21/17 in HD Exam, assessment and plan were gone over with the resident. Will speak with SW/Bench Assembly Inspector when they return on 11/22/17 concerning where we are with placement. Cullen Barth D.O.
--- NOTE | 2017-11-21 08:40 | CP.PCM.PN ---
Subjective - Date & Time of Evaluation Date of Evaluation: 11/21/17 Time of Evaluation: 08:38 - Subjective Subjective: seen and examined for hd today Objective - Vital Signs/Intake and Output Vital Signs (last 24 hours): Temp Pulse Resp BP Pulse Ox 98.9 F 109 H 20 145/79 97 11/21/17 07:51 11/21/17 07:51 11/21/17 07:51 11/21/17 07:51 11/21/17 07:51 Intake and Output: 11/21/17 11/21/17 06:59 18:59 Intake Total 1520 Output Total 450 Balance 1070 - Medications Medications: Current Medications Ascorbic Acid (Vitamin C 500 Mg Tab) 500 mg PEG DAILY [facility] Last Admin: 11/20/17 09:48 Dose: 500 mg Aspirin (Aspirin Chewable) 81 mg PO DAILY [facility] Last Admin: 11/20/17 09:48 Dose: 81 mg Calcitriol (Rocaltrol) 0.25 mcg PEG DAILY [facility] Last Admin: 11/20/17 10:51 Dose: 0.25 mcg Calcium Acetate (Phoslo) 2,001 mg GT TIDCC [facility] Last Admin: 11/20/17 17:55 Dose: 2,001 mg Epoetin Chencho (Procrit) 10,000 unit IV MWF [facility] Last Admin: 11/18/17 12:01 Dose: 10,000 unit Famotidine (Pepcid) 20 mg PEG DAILY [facility] Last Admin: 11/20/17 09:48 Dose: 20 mg Imipenem/Cilastatin Sodium 500 (mg/ Sodium Chloride) 100 mls @ 100 mls/hr IV Q12H [facility] Last Admin: 11/21/17 06:05 Dose: 100 mls/hr Insulin Aspart (Novolog) 0 unit SC Q6 [facility] PRN Reason: Protocol Last Admin: 11/21/17 06:08 Dose: 3 unit Insulin Detemir (Levemir) 35 unit SC Q12 [facility] Last Admin: 11/20/17 21:42 Dose: 35 unit Ipratropium [place] (Atrovent) 0.5 mg IH RQ6 [facility] Last Admin: 11/21/17 07:30 Dose: 0.5 mg Loperamide HCl (Imodium) 1 mg PO Q4H PRN PRN Reason: Diarrhea Last Admin: 11/04/17 21:10 Dose: 1 mg Midodrine (Proamatine) 10 mg PO TID [facility] Last Admin: 11/20/17 19:47 Dose: Not Given Multivitamins (Hexavitamin) 1 tab PEG DAILY [facility] Last Admin: 11/20/17 09:48 Dose: 1 tab Rosuvastatin Calcium (Crestor) 10 mg PEG HS [facility] Last Admin: 11/20/17 21:37 Dose: 10 mg Saccharomyces Boulardii (Florastor) 250 mg PEG BID [facility] Last Admin: 11/20/17 18:55 Dose: 250 mg Vitamin A (Vitamin A & D Oint Ud Foilpak) 0.5 ea TOP Q1H PRN PRN Reason: Dry skin Last Admin: 11/15/17 10:25 Dose: 0.5 ea - Labs Labs: 11/20/17 11:00 11/20/17 11:00 PT 13.4 SECONDS (9.7-12.2) H 10/14/17 16:30 INR 1.2 10/14/17 16:30 APTT 28 SECONDS (21-34) 10/14/17 16:30 - Constitutional Appears: Non-toxic, No Acute Distress, Chronically Ill - Head Exam Head Exam: NORMAL INSPECTION, NORMOCEPHALIC - Eye Exam Eye Exam: Normal appearance Pupil Exam: PERRL - ENT Exam ENT Exam: Mucous Membranes Dry - Neck Exam Neck Exam: Full ROM, Normal Inspection - Respiratory Exam Respiratory Exam: Decreased Breath Sounds (bases) - Cardiovascular Exam Cardiovascular Exam: Tachycardia, REGULAR RHYTHM - GI/Abdominal Exam GI & Abdominal Exam: Distended (peg tube), Soft - Extremities Exam Extremities Exam: Normal Inspection - Neurological Exam Neurological Exam: Awake (not oriented) - Skin Skin Exam: Intact, Normal Color Assessment and Plan (1) Acute on chronic renal failure Status: Resolved (2) CHF (congestive heart failure) Status: Acute (3) History of DVT (deep vein thrombosis) Status: Acute (4) CAD (coronary artery disease) Status: Chronic (5) CKD (chronic kidney disease) Status: Chronic - Assessment and Plan (Free Text) Assessment: maintain hd, treatment today will follow along
[2017-11-21] MEDS: Saccharomyces Boulardi 250 mg Cap PEG SCH ×2 (10:35→17:49)
[2017-11-21] MEDS: Multiple Vitamins Tab PEG SCH (10:35)
[2017-11-21] MEDS: Insulin Detemir 100 units/ml Vial (Levemir) SC SCH ×2 (10:36→21:48)
[2017-11-21 15:06] LABS: BASO # 0.1 K/uL (0.0-0.2); BASO % 0.7 % (0.0-2.0); EOS % 0.1 % (0.0-4.0); HEMATOCRIT 27.3 % (35.0-51.0); LYMPH # 1.1 K/uL (1.0-4.3); LYMPH % 6.5 % (20.0-40.0); MEAN CORPUSCULAR HEMOGLOBIN 28.8 pg (27.0-31.0); MEAN CORPUSCULAR HGB CONC 31.4 g/dL (33.0-37.0); MEAN PLATELET VOLUME 7.7 fL (7.2-11.7); MONO % 5.6 % (0.0-10.0); RED CELL DISTRIBUTION WIDTH 19.7 % (11.5-14.5)
[2017-11-21 15:15] LABS: PLATELET COUNT 699 K/uL (130-400)
[2017-11-21 15:19] LABS: ALB/GLOB RATIO 0.7 (1.0-2.1); BILIRUBIN,TOTAL 0.3 mg/dL (0.2-1.3); CALCIUM 7.9 mg/dl (8.6-10.4); POTASSIUM 5.7 mmol/L (3.6-5.2); TOTAL PROTEIN 5.8 g/dL (6.3-8.3)
[2017-11-21 15:35] LABS: NEUTROPHIL 88 % (50-75); TOTAL CELLS COUNTED 100
[2017-11-21 15:37] LABS: LARGE PLATELETS PRESENT
[2017-11-21] MEDS: Epoetin Alfa 10,000 unit/ml Dialysis IV SCH (16:50)
--- NOTE | 2017-11-21 22:00 | CP.PCM.PN ---
Subjective - Date & Time of Evaluation Date of Evaluation: 11/21/17 Time of Evaluation: 10:05 - Subjective Subjective: Patient seen and evaluated clinical condition remains same Verbally non responsive Conservative medical mgt Objective - Vital Signs/Intake and Output Vital Signs (last 24 hours): Temp Pulse Resp BP Pulse Ox 98.3 F 95 H 26 H 126/64 97 11/21/17 14:35 11/21/17 16:40 11/21/17 14:35 11/21/17 17:40 11/21/17 07:51 - Medications Medications: Current Medications Ascorbic Acid (Vitamin C 500 Mg Tab) 500 mg PEG DAILY [facility] Last Admin: 11/21/17 10:35 Dose: 500 mg Aspirin (Aspirin Chewable) 81 mg PO DAILY [facility] Last Admin: 11/21/17 10:35 Dose: 81 mg Calcitriol (Rocaltrol) 0.25 mcg PEG DAILY [facility] Last Admin: 11/21/17 10:35 Dose: 0.25 mcg Calcium Acetate (Phoslo) 2,001 mg GT TIDCC [facility] Last Admin: 11/21/17 17:50 Dose: Not Given Epoetin Chen[place] (Procrit) 10,000 unit IV MWF [facility] Last Admin: 11/21/17 16:50 Dose: 10,000 unit Famotidine (Pepcid) 20 mg PEG DAILY [facility] Last Admin: 11/21/17 10:35 Dose: 20 mg Imipenem/Cilastatin Sodium 500 (mg/ Sodium Chloride) 100 mls @ 100 mls/hr IV Q12H [facility] Last Admin: 11/21/17 18:26 Dose: 100 mls/hr Insulin Aspart (Novolog) 0 unit SC Q6 [facility] PRN Reason: Protocol Last Admin: 11/21/17 18:46 Dose: Not Given Insulin Detemir (Levemir) 35 unit SC Q12 [facility] Last Admin: 11/21/17 21:48 Dose: 35 unit Ipratropium [place] (Atrovent) 0.5 mg IH RQ6 [facility] Last Admin: 11/21/17 19:47 Dose: 0.5 mg Loperamide HCl (Imodium) 1 mg PO Q4H PRN PRN Reason: Diarrhea Last Admin: 11/04/17 21:10 Dose: 1 mg Midodrine (Proamatine) 10 mg PO TID [facility] Last Admin: 11/21/17 17:50 Dose: Not Given Multivitamins (Hexavitamin) 1 tab PEG DAILY [facility] Last Admin: 11/21/17 10:35 Dose: 1 tab Rosuvastatin Calcium (Crestor) 10 mg PEG HS [facility] Last Admin: 11/21/17 21:48 Dose: 10 mg Saccharomyces Boulardii (Florastor) 250 mg PEG BID [facility] Last Admin: 11/21/17 17:49 Dose: Not Given Vitamin A (Vitamin A & D Oint Ud Foilpak) 0.5 ea TOP Q1H PRN PRN Reason: Dry skin Last Admin: 11/15/17 10:25 Dose: 0.5 ea - Labs Labs: 11/21/17 15:01 11/21/17 15:01 PT 13.4 SECONDS (9.7-12.2) H 10/14/17 16:30 INR 1.2 10/14/17 16:30 APTT 28 SECONDS (21-34) 10/14/17 16:30
[2017-11-22] MEDS: Ipratropium 0.02% Inhal Soln (0.5 mg/2.5 ml) UD IH SCH ×4 (01:01→19:35)
[2017-11-22] MEDS: (Novolog) Insulin Aspart, Recombinant 100 u/ml 10 ml vial SC SCH ×4 (06:16→18:18)
[2017-11-22 06:25] LABS: BASO # 0.2 K/uL (0.0-0.2); BASO % 1.4 % (0.0-2.0); EOS # 0.3 K/uL (0.0-0.7); EOS % 1.8 % (0.0-4.0); HEMATOCRIT 29.3 % (35.0-51.0); LYMPH # 1.7 K/uL (1.0-4.3); MEAN CELL VOLUME 91.6 fL (80.0-94.0); MEAN CORPUSCULAR HEMOGLOBIN 28.5 pg (27.0-31.0); MEAN CORPUSCULAR HGB CONC 31.1 g/dL (33.0-37.0); MEAN PLATELET VOLUME 7.8 fL (7.2-11.7); MONO % 6.5 % (0.0-10.0); RED CELL DISTRIBUTION WIDTH 19.8 % (11.5-14.5); WHITE BLOOD COUNT 15.6 K/uL (4.8-10.8)
--- NOTE | 2017-11-22 07:55 | CP.PCM.PN ---
<Aubree García - Last Filed: 11/22/17 11:29> Subjective - Date & Time of Evaluation Date of Evaluation: 11/22/17 Time of Evaluation: 07:54 - Subjective Subjective: Medicine Progress Note: Hospitalist Service Patient seen and examined at bedside. Per nursing no acute events overnight. Patient is awake and alert, no following commands. Tolerated hemodialysis yesterday. ROS not obtained. Objective - Vital Signs/Intake and Output Vital Signs (last 24 hours): Temp Pulse Resp BP Pulse Ox 99.3 F 127 H 22 147/76 93 L 11/22/17 00:00 11/22/17 00:00 11/22/17 00:00 11/22/17 00:00 11/22/17 00:00 Intake and Output: 11/22/17 11/22/17 06:59 18:59 Intake Total 760 Output Total 500 Balance 260 - Medications Medications: Current Medications Ascorbic Acid (Vitamin C 500 Mg Tab) 500 mg PEG DAILY [facility] Last Admin: 11/21/17 10:35 Dose: 500 mg Aspirin (Aspirin Chewable) 81 mg PO DAILY [facility] Last Admin: 11/21/17 10:35 Dose: 81 mg Calcitriol (Rocaltrol) 0.25 mcg PEG DAILY [facility] Last Admin: 11/21/17 10:35 Dose: 0.25 mcg Calcium Acetate (Phoslo) 2,001 mg GT TIDCC [facility] Last Admin: 11/21/17 17:50 Dose: Not Given Epoetin [place] (Procrit) 10,000 unit IV MWF [facility] Last Admin: 11/21/17 16:50 Dose: 10,000 unit Famotidine (Pepcid) 20 mg PEG DAILY [facility] Last Admin: 11/21/17 10:35 Dose: 20 mg Imipenem/Cilastatin Sodium 500 (mg/ Sodium Chloride) 100 mls @ 100 mls/hr IV Q12H [facility] Last Admin: 11/22/17 06:15 Dose: 100 mls/hr Insulin Aspart (Novolog) 0 unit SC Q6 [facility] PRN Reason: Protocol Last Admin: 11/22/17 06:16 Dose: 1 unit Insulin Detemir (Levemir) 35 unit SC Q12 [facility] Last Admin: 11/21/17 21:48 Dose: 35 unit Ipratropium [place] (Atrovent) 0.5 mg IH RQ6 [facility] Last Admin: 11/22/17 07:54 Dose: 0.5 mg Loperamide HCl (Imodium) 1 mg PO Q4H PRN PRN Reason: Diarrhea Last Admin: 11/04/17 21:10 Dose: 1 mg Midodrine (Proamatine) 10 mg PO TID [facility] Last Admin: 11/21/17 17:50 Dose: Not Given Multivitamins (Hexavitamin) 1 tab PEG DAILY [facility] Last Admin: 11/21/17 10:35 Dose: 1 tab Rosuvastatin Calcium (Crestor) 10 mg PEG HS [facility] Last Admin: 11/21/17 21:48 Dose: 10 mg Saccharomyces Boulardii (Florastor) 250 mg PEG BID [facility] Last Admin: 11/21/17 17:49 Dose: Not Given Vitamin A (Vitamin A & D Oint Ud Foilpak) 0.5 ea TOP Q1H PRN PRN Reason: Dry skin Last Admin: 11/15/17 10:25 Dose: 0.5 ea - Labs Labs: 11/22/17 06:04 11/21/17 15:01 PT 13.4 SECONDS (9.7-12.2) H 10/14/17 16:30 INR 1.2 10/14/17 16:30 APTT 28 SECONDS (21-34) 10/14/17 16:30 - Constitutional Appears: Non-toxic, No Acute Distress - Head Exam Head Exam: ATRAUMATIC, NORMAL INSPECTION - Eye Exam Eye Exam: EOMI - ENT Exam ENT Exam: Mucous Membranes Moist - Neck Exam Additional comments: +trach collar - Respiratory Exam Respiratory Exam: Decreased Breath Sounds, NORMAL BREATHING PATTERN. absent: Rales, Rhonchi, Wheezes, Respiratory Distress - Cardiovascular Exam Cardiovascular Exam: REGULAR RHYTHM, +S1, +S2 Additional comments: +permacath on right chest wall - GI/Abdominal Exam GI & Abdominal Exam: Soft, Normal Bowel Sounds. absent: Guarding, Rigid, Tenderness Additional comments: +peg tube - Rectal Exam Rectal Exam: Deferred - Back Exam Additional comments: Unstageable sacral decubitus ulcer that is extending into ischial tuberosities Bilateral hip ulcers (stage 2) - Neurological Exam Neurological Exam: Alert, Awake - Psychiatric Exam Psychiatric exam: Normal Affect - Skin Skin Exam: Normal Color, Warm Assessment and Plan - Assessment and Plan (Free Text) Assessment: 1). Hx Acute Respiratory Failure/ARDS/Cadiac Arrest/NSTEMI: * Dr Cortés (cardiology) on the case-->help appreciated * Dr. Mena (pulmonary) on the case-->help appreciated * Code Blue on 08/10: asystole, cardiopulmonary resuscitative measures initiated , requiring 3 epis, bicarbonate, ROSC achieved and intubated and brought to the ICU. Patient has had multiple for hypotension. Latest ETHANOL OPERATIONS MANAGER was on 10/14--> transferred to [facility] and on the floors. * Atrovent 0.5mg Inhaled RQ6H * Aspirin 81mg PO daily * Lopressor 12.5mg PO BID with holding parameters * Midodrine 10mg PO TID * Crestor 10mg PO qHS 2). Hx Abnormal Stress Test/AICD/CAD: * Dr Cortés (cardiology) on the case-->help appreciated * Dr. Mena (pulmonary) on the case-->help appreciated * Code Blue on 08/10: asystole, cardiopulmonary resuscitative measures initiated , requiring 3 epis, bicarbonate, ROSC achieved and intubated and brought to the ICU. Patient has had multiple for hypotension. Latest ETHANOL OPERATIONS MANAGER was on 10/14/17 * Aspirin 81mg PO daily * Lopressor 12.5mg PO BID with holding parameters * Midodrine 10mg PO TID * Crestor 10mg PO qHS 3). Hx Atrial Flutter: * Lopressor 12.5mg PO BID with holding parameters * Unable to anticoagulate secondary to occult stool blood 4). Hx Acute on Chronic Systolic HF, Hx of CAD * Aspirin 81mg PO daily * Lopressor 12.5mg PO BID with holding parameters * Midodrine 10mg PO TID * Crestor 10mg PO qHS * Lisinopril was discontinued on 10/14/17 at the time of ETHANOL OPERATIONS MANAGER for Hypotension 5). Leukocytosis * Infectious Disease (Dr. Lawrence) on the case-->help appreciated * Blood Culture 10/22/17 is finalized as negative. * Sputum culture 10/14/17 is negative. * Stool cultures 10/20/17 are negative. 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 * Right Arm Midline Tip 10/06/17 culture is negative and removed. Midline Tip Culture 10/26/17 is negative. * Blood Cultures 10/28/17 are negative to date. * Iv ABx: Cefepime (10/12/17 through 10/24/17), Aztreonam (10/13/17 through )), Diflucan (10/14/17 through 10/26/17). * Off Meropenem 500 mg IV Q8H (10/28;), Micafungin 100 mg IV Q24H (10/27/17- 11/17/2017) * Started on Primaxin given shortage on Meropenem * Primaxin 500mg IVQ12 (active since 11/17/17) * I spoke with 11/02, she does not want Permacath replaced given cardiac risk for operation/anesthesia and reaffirmed on 11/16. * ID Recommended for permcath and sacral debridement by ID, has refused 11/02. * Sacral ulcer unstageable; Wound care is on board 6). Hx Pneumonia, Fungemia * ID on the case-->help appreciated * Currently on Meropenem 500 mg IV Q8H (10/28/17-), Micofungin 100 mg IV Q24H ( 10/27/17-11/17/2017). * Started on Primaxin given shortage on Meropenem * Primaxin 500mg IVQ12 (active since 11/17/17) * I spoke with 11/02, she does not want Permacath replaced given cardiac risk for operation/anesthesia. * ID Recommended for permcath and sacral debridement by ID, has refused 11/02 and 11/16. * Sacral ulcer unstageable; Wound care is on board 7). Hx HTN: * Lopressor 12.5mg PEG BID with holding parameters 8). Hx CKD on HD . * Family would like to continue HD through current Permacath and declined surgical intervention to change catheter (due to the Blood Culture 10/24/17 being positive for Reny glabrata) as recommended by Vascular Surgery and Infectious Disease. * I discussed with at bedside 11/02, she continues to deny the exchange secondary to cardiac risk. * Phoslo 2001mg GT TIDCC * Epocrit 10,000 unit IV MWF 9). Hx DM: * Levemir 35 units [id number] * Insulin sliding scale * monitor [id number] * HgbA1c 8.4 10). Hx HLD * Crestor 10mg PO qHS 11). Hx Anemia: * Eliquis stopped 10/24/17 secondary to positive stool occult blood * Stool Occult is Positive and GI Dr. Dsouza was reconsulted however no further workup recommended in light of patient current status. * Procrit 10,000 units -- * Ascorbic acid 500mg daily * s/p 1 unit of PRBC 11/04 given declining H/H * HgB/Hct are currently stable 12). Hx DVT; Left upper Extremity DVT+ * Eliquis stopped 10/24/17 given positive bloody stool * Repeat dopplers LE 08/09/17 are negative for DVT * Left UE Doppler 11/08/17 was POSITIVE for DVTs in Left Brachial and Left Axillary Veins: Can NOT anticoagulate due to history of bleeding (requiring blood transfusion) with anticoagulation 13). Hx UTI: * Yeast on culture 10/24/17. * He was on Micafungin 100 mg IV Q24H (10/27-11/17/2017). He may be colonized with this. * ID Recommended for permcath and sacral debridement by ID, has refused 11/02 and confirmed 11/16 14). Hx Alzheimer's Dementia * CT head w/o contrast (08/10/17):acute os subacute lacune infarct is not excluded in the left basal ganglia inferiorly with definitive chronic lacune identified in the right basal ganglia superiorly. No acute or subacute lobar brain infarction is appreciable by standard CT criteria. Mild age-related neuro * CT Head w/o contrast (10/14/17): no intracranial mass, hemorrhage, or evidence of acute infarct. 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 Old right external capsule ischemic change. Age related atrophy and chronic microvascular ischemic change 15). Hx Sacral Ulcer: * General surgery (Dr. Forbes) on board-->help appreciated * Bone Scan performed 09/17/17 to check for Osteomyelitis at the Sacrum: negative for osteomyelitis * Currently on MediHoney daily, family has declined further debridement by surgery. Wound care on board * Recommended for permcath and sacral debridement by ID, has refused 11/02 16). Hx Right Heal Ulcer * Podiatry (Dr. Lundberg) on board-->help appreciated * Continue Prevalon boots * Unstageable 17). Hx Elevated LFTs * Normalized; patient is on statin and Micafungin 18). Diarrhea: * Resolved * Rectal tube in place * Stool Studies 10/20/17 are negative * On loperamide PRN 19). Hx Hyponatremia: * Normalized 20). Hx PEG Tube: * Vital 1.5 at 50 ml/hour 21). Hx Hypocalcemia: * Continue Calcitriol 0.25mcg daily * Continue phoslo 2001mg GT TIDCC 22). Prophylactic Measures: * Started on dialysis 08/15/17 * (Jovita Serrano): * is currently admitted to the hospital at this time * Patient is now: DNR * Palliative care on board * Bioethics consult () to evaluated-->notes under patient care-- Patient's may make decision. <Cullen Barth - Last Filed: 11/22/17 18:57> Objective - Vital Signs/Intake and Output Vital Signs (last 24 hours): Temp Pulse Resp BP Pulse Ox 98.6 F 117 H 22 153/82 H 94 L 11/22/17 15:00 11/22/17 15:00 11/22/17 15:00 11/22/17 15:00 11/22/17 15:00 Intake and Output: 11/22/17 11/22/17 06:59 18:59 Intake Total 1420 Output Total 900 Balance 520 - Medications Medications: Current Medications Ascorbic Acid (Vitamin C 500 Mg Tab) 500 mg PEG DAILY [facility] Last Admin: 11/22/17 10:40 Dose: 500 mg Aspirin (Aspirin Chewable) 81 mg PO DAILY [facility] Last Admin: 11/22/17 10:40 Dose: 81 mg Calcitriol (Rocaltrol) 0.25 mcg PEG DAILY [facility] Last Admin: 11/22/17 10:40 Dose: 0.25 mcg Calcium Acetate (Phoslo) 2,001 mg GT TIDCC [facility] Last Admin: 11/22/17 18:02 Dose: 2,001 mg Epoetin [place] (Procrit) 10,000 unit IV MWF [facility] Last Admin: 11/21/17 16:50 Dose: 10,000 unit Famotidine (Pepcid) 20 mg PEG DAILY [facility] Last Admin: 11/22/17 10:40 Dose: 20 mg Imipenem/Cilastatin Sodium 500 (mg/ Sodium Chloride) 100 mls @ 100 mls/hr IV Q12H [facility] Last Admin: 11/22/17 18:22 Dose: 100 mls/hr Insulin Aspart (Novolog) 0 unit SC Q6 [facility] PRN Reason: Protocol Last Admin: 11/22/17 18:18 Dose: 3 unit Insulin Detemir (Levemir) 35 unit SC Q12 [facility] Last Admin: 11/22/17 10:50 Dose: 35 unit Ipratropium [place] (Atrovent) 0.5 mg IH RQ6 [facility] Last Admin: 11/22/17 13:29 Dose: 0.5 mg Loperamide HCl (Imodium) 1 mg PO Q4H PRN PRN Reason: Diarrhea Last Admin: 11/04/17 21:10 Dose: 1 mg Metoprolol Tartrate (Lopressor) 12.5 mg PEG BID [facility] Last Admin: 11/22/17 18:02 Dose: 12.5 mg Midodrine (Proamatine) 10 mg PO TID [facility] Last Admin: 11/22/17 18:03 Dose: Not Given Multivitamins (Hexavitamin) 1 tab PEG DAILY [facility] Last Admin: 11/22/17 10:40 Dose: 1 tab Rosuvastatin Calcium (Crestor) 10 mg PEG HS [facility] Last Admin: 11/21/17 21:48 Dose: 10 mg Saccharomyces Boulardii (Florastor) 250 mg PEG BID [facility] Last Admin: 11/22/17 18:02 Dose: 250 mg Vitamin A (Vitamin A & D Oint Ud Foilpak) 0.5 ea TOP Q1H PRN PRN Reason: Dry skin Last Admin: 11/15/17 10:25 Dose: 0.5 ea - Labs Labs: 11/22/17 06:04 11/22/17 06:04 PT 13.4 SECONDS (9.7-12.2) H 10/14/17 16:30 INR 1.2 10/14/17 16:30 APTT 28 SECONDS (21-34) 10/14/17 16:30 Attending/Attestation - Attestation I have personally seen and examined this patient.: Yes I have fully participated in the care of the patient.: Yes I have reviewed all pertinent clinical information, including history, physical exam and plan: Yes Notes (Text): 11/22/17 18:51 Hospitalist Progress Note Patient was seen and examined 12:45 PM 11/22/17 355 A Exam, assessment and plan were thoroughly gone over with the resident. I spoke with [employer] and she has sent patient information to [facility] in [place] and is awaiting response. Please be aware that this facility accepted patient in the past but declined as it was too far for her to travel by bus from her residence ([address] bus ride). Cullen Barth D.O.
[2017-11-22 08:30] LABS: ALB/GLOB RATIO 0.8 (1.0-2.1); BILIRUBIN,TOTAL 0.5 mg/dL (0.2-1.3); CALCIUM 7.2 mg/dl (8.6-10.4); POTASSIUM 4.9 mmol/L (3.6-5.2); TOTAL PROTEIN 5.6 g/dL (6.3-8.3)
--- NOTE | 2017-11-22 10:23 | CP.PCM.PN ---
Subjective - Date & Time of Evaluation Date of Evaluation: 11/22/17 Time of Evaluation: 10:22 - Subjective Subjective: seen and examined no events hd yesterday non verbal, ros not obtained Objective - Vital Signs/Intake and Output Vital Signs (last 24 hours): Temp Pulse Resp BP Pulse Ox 98.8 F 128 H 20 138/68 94 L 11/22/17 08:04 11/22/17 08:04 11/22/17 08:04 11/22/17 08:04 11/22/17 08:04 Intake and Output: 11/22/17 11/22/17 06:59 18:59 Intake Total 760 Output Total 500 Balance 260 - Medications Medications: Current Medications Ascorbic Acid (Vitamin C 500 Mg Tab) 500 mg PEG DAILY [facility] Last Admin: 11/21/17 10:35 Dose: 500 mg Aspirin (Aspirin Chewable) 81 mg PO DAILY [facility] Last Admin: 11/21/17 10:35 Dose: 81 mg Calcitriol (Rocaltrol) 0.25 mcg PEG DAILY [facility] Last Admin: 11/21/17 10:35 Dose: 0.25 mcg Calcium Acetate (Phoslo) 2,001 mg GT TIDCC [facility] Last Admin: 11/22/17 08:38 Dose: 2,001 mg Epoetin [place] (Procrit) 10,000 unit IV MWF [facility] Last Admin: 11/21/17 16:50 Dose: 10,000 unit Famotidine (Pepcid) 20 mg PEG DAILY [facility] Last Admin: 11/21/17 10:35 Dose: 20 mg Imipenem/Cilastatin Sodium 500 (mg/ Sodium Chloride) 100 mls @ 100 mls/hr IV Q12H [facility] Last Admin: 11/22/17 06:15 Dose: 100 mls/hr Insulin Aspart (Novolog) 0 unit SC Q6 [facility] PRN Reason: Protocol Last Admin: 11/22/17 06:16 Dose: 1 unit Insulin Detemir (Levemir) 35 unit SC Q12 [facility] Last Admin: 11/21/17 21:48 Dose: 35 unit Ipratropium [place] (Atrovent) 0.5 mg IH RQ6 [facility] Last Admin: 11/22/17 07:54 Dose: 0.5 mg Loperamide HCl (Imodium) 1 mg PO Q4H PRN PRN Reason: Diarrhea Last Admin: 11/04/17 21:10 Dose: 1 mg Midodrine (Proamatine) 10 mg PO TID [facility] Last Admin: 11/21/17 17:50 Dose: Not Given Multivitamins (Hexavitamin) 1 tab PEG DAILY [facility] Last Admin: 11/21/17 10:35 Dose: 1 tab Rosuvastatin Calcium (Crestor) 10 mg PEG HS [facility] Last Admin: 11/21/17 21:48 Dose: 10 mg Saccharomyces Boulardii (Florastor) 250 mg PEG BID [facility] Last Admin: 11/21/17 17:49 Dose: Not Given Vitamin A (Vitamin A & D Oint Ud Foilpak) 0.5 ea TOP Q1H PRN PRN Reason: Dry skin Last Admin: 11/15/17 10:25 Dose: 0.5 ea - Labs Labs: 11/22/17 06:04 11/22/17 06:04 PT 13.4 SECONDS (9.7-12.2) H 10/14/17 16:30 INR 1.2 10/14/17 16:30 APTT 28 SECONDS (21-34) 10/14/17 16:30 - Constitutional Appears: Non-toxic, No Acute Distress, Chronically Ill - Head Exam Head Exam: NORMAL INSPECTION - Eye Exam Eye Exam: Normal appearance, PERRL - ENT Exam ENT Exam: Mucous Membranes Dry, Normal Exam - Neck Exam Neck Exam: Normal Inspection - Respiratory Exam Respiratory Exam: Clear to Ausculation Bilateral, NORMAL BREATHING PATTERN - Cardiovascular Exam Cardiovascular Exam: Tachycardia, REGULAR RHYTHM - GI/Abdominal Exam GI & Abdominal Exam: Distended (peg in place), Soft - Extremities Exam Extremities Exam: Normal Inspection - Neurological Exam Neurological Exam: Altered, Awake. absent: Alert, Oriented x3 - Skin Skin Exam: Normal Color, Warm Assessment and Plan (1) Acute on chronic renal failure Status: Resolved (2) CHF (congestive heart failure) Status: Acute (3) History of DVT (deep vein thrombosis) Status: Acute (4) CAD (coronary artery disease) Status: Chronic (5) CKD (chronic kidney disease) Status: Chronic - Assessment and Plan (Free Text) Assessment: maintain hd [facility] placement
[2017-11-22] MEDS: Multiple Vitamins Tab PEG SCH (10:40)
[2017-11-22] MEDS: Saccharomyces Boulardi 250 mg Cap PEG SCH ×2 (10:40→18:02)
[2017-11-22] MEDS: Insulin Detemir 100 units/ml Vial (Levemir) SC SCH ×2 (10:50→21:22)
--- NOTE | 2017-11-22 15:30 | CP.PCM.PN ---
Subjective - Date & Time of Evaluation Date of Evaluation: 11/22/17 Time of Evaluation: 03:00 - Subjective Subjective: dictated Objective - Vital Signs/Intake and Output Vital Signs (last 24 hours): Temp Pulse Resp BP Pulse Ox 98.8 F 119 H 20 134/72 95 11/22/17 08:04 11/22/17 13:54 11/22/17 13:54 11/22/17 13:54 11/22/17 13:54 Intake and Output: 11/22/17 11/22/17 06:59 18:59 Intake Total 760 Output Total 500 Balance 260 - Medications Medications: Current Medications Ascorbic Acid (Vitamin C 500 Mg Tab) 500 mg PEG DAILY [facility] Last Admin: 11/22/17 10:40 Dose: 500 mg Aspirin (Aspirin Chewable) 81 mg PO DAILY [facility] Last Admin: 11/22/17 10:40 Dose: 81 mg Calcitriol (Rocaltrol) 0.25 mcg PEG DAILY [facility] Last Admin: 11/22/17 10:40 Dose: 0.25 mcg Calcium Acetate (Phoslo) 2,001 mg GT TIDCC [facility] Last Admin: 11/22/17 12:33 Dose: 2,001 mg Epoetin Chencho (Procrit) 10,000 unit IV MWF [facility] Last Admin: 11/21/17 16:50 Dose: 10,000 unit Famotidine (Pepcid) 20 mg PEG DAILY [facility] Last Admin: 11/22/17 10:40 Dose: 20 mg Imipenem/Cilastatin Sodium 500 (mg/ Sodium Chloride) 100 mls @ 100 mls/hr IV Q12H [facility] Last Admin: 11/22/17 06:15 Dose: 100 mls/hr Insulin Aspart (Novolog) 0 unit SC Q6 [facility]IS FERNANDO PRN Reason: Protocol Last Admin: 11/22/17 12:13 Dose: 3 unit Insulin Detemir (Levemir) 35 unit SC Q12 [facility] Last Admin: 11/22/17 10:50 Dose: 35 unit Ipratropium [place] (Atrovent) 0.5 mg IH RQ6 [facility] Last Admin: 11/22/17 13:29 Dose: 0.5 mg Loperamide HCl (Imodium) 1 mg PO Q4H PRN PRN Reason: Diarrhea Last Admin: 11/04/17 21:10 Dose: 1 mg Metoprolol Tartrate (Lopressor) 12.5 mg PEG BID [facility] Last Admin: 11/22/17 12:12 Dose: 12.5 mg Midodrine (Proamatine) 10 mg PO TID [facility] Last Admin: 11/22/17 13:54 Dose: Not Given Multivitamins (Hexavitamin) 1 tab PEG DAILY [facility] Last Admin: 11/22/17 10:40 Dose: 1 tab Rosuvastatin Calcium (Crestor) 10 mg PEG HS [facility] Last Admin: 11/21/17 21:48 Dose: 10 mg Saccharomyces Boulardii (Florastor) 250 mg PEG BID [facility] Last Admin: 11/22/17 10:40 Dose: 250 mg Vitamin A (Vitamin A & D Oint Ud Foilpak) 0.5 ea TOP Q1H PRN PRN Reason: Dry skin Last Admin: 11/15/17 10:25 Dose: 0.5 ea - Labs Labs: 11/22/17 06:04 11/22/17 06:04 PT 13.4 SECONDS (9.7-12.2) H 10/14/17 16:30 INR 1.2 10/14/17 16:30 APTT 28 SECONDS (21-34) 10/14/17 16:30
--- NOTE | 2017-11-22 18:20 | PN ---
DATE: SUBJECTIVE: Patient remains lethargic, nonverbal, appears to be in no acute respiratory distress. PHYSICAL EXAMINATION: VITAL SIGNS: T-max today is 98.8, heart rate remains 119, blood pressure 134/72, respirations are 20. HEENT: Head is atraumatic. Trach site appears unremarkable. NECK: Supple. LUNGS: Have coarse breath sounds. HEART: S1 and S2, is tachycardic. ABDOMEN: Remains prominent. He does have a sacral decubitus. EXTREMITIES: Have edema and has Venodyne boots on. LABORATORY DATA: Labs show white count is 15.6, hemoglobin 9.1, hematocrit 29.3, platelet count is 651. He had micro culture of sputum, which showed normal saprophytic diane. He remains on imipenem 500 q. 12, decrease it to 250 q. 12 as he remains on dialysis as well as a dialysis catheter. PMD has already discussed multiple plans with the family. I hope he gets transferred to a rehab. Other than that, he is today very drowsy. No new recommendations at this time. Allan Lawrence MD
--- NOTE | 2017-11-22 22:01 | CP.PCM.PN ---
Subjective - Date & Time of Evaluation Date of Evaluation: 11/22/17 Time of Evaluation: 11:00 - Subjective Subjective: Patient seen and evaluated Non verbal No new events noted Objective - Vital Signs/Intake and Output Vital Signs (last 24 hours): Temp Pulse Resp BP Pulse Ox 98.6 F 117 H 22 153/82 H 94 L 11/22/17 15:00 11/22/17 15:00 11/22/17 15:00 11/22/17 15:00 11/22/17 15:00 Intake and Output: 11/22/17 11/23/17 18:59 06:59 Intake Total 1420 Output Total 900 Balance 520 - Medications Medications: Current Medications Ascorbic Acid (Vitamin C 500 Mg Tab) 500 mg PEG DAILY [facility] Last Admin: 11/22/17 10:40 Dose: 500 mg Aspirin (Aspirin Chewable) 81 mg PO DAILY [facility] Last Admin: 11/22/17 10:40 Dose: 81 mg Calcitriol (Rocaltrol) 0.25 mcg PEG DAILY [facility] Last Admin: 11/22/17 10:40 Dose: 0.25 mcg Calcium Acetate (Phoslo) 2,001 mg GT TIDCC [facility] Last Admin: 11/22/17 18:02 Dose: 2,001 mg Epoetin Chencho (Procrit) 10,000 unit IV MWF [facility] Last Admin: 11/21/17 16:50 Dose: 10,000 unit Famotidine (Pepcid) 20 mg PEG DAILY [facility] Last Admin: 11/22/17 10:40 Dose: 20 mg Imipenem/Cilastatin Sodium 500 (mg/ Sodium Chloride) 100 mls @ 100 mls/hr IV Q12H [facility] Last Admin: 11/22/17 18:22 Dose: 100 mls/hr Insulin Aspart (Novolog) 0 unit SC Q6 [facility] FERNANDO PRN Reason: Protocol Last Admin: 11/22/17 18:18 Dose: 3 unit Insulin Detemir (Levemir) 35 unit SC Q12 [facility] Last Admin: 11/22/17 21:22 Dose: 35 unit Ipratropium [place] (Atrovent) 0.5 mg IH RQ6 [facility] Last Admin: 11/22/17 19:35 Dose: 0.5 mg Loperamide HCl (Imodium) 1 mg PO Q4H PRN PRN Reason: Diarrhea Last Admin: 11/04/17 21:10 Dose: 1 mg Metoprolol Tartrate (Lopressor) 12.5 mg PEG BID [facility] Last Admin: 11/22/17 18:02 Dose: 12.5 mg Midodrine (Proamatine) 10 mg PO TID [facility] Last Admin: 11/22/17 18:03 Dose: Not Given Multivitamins (Hexavitamin) 1 tab PEG DAILY [facility] Last Admin: 11/22/17 10:40 Dose: 1 tab Rosuvastatin Calcium (Crestor) 10 mg PEG HS [facility] Last Admin: 11/22/17 21:21 Dose: 10 mg Saccharomyces Boulardii (Florastor) 250 mg PEG BID [facility] Last Admin: 11/22/17 18:02 Dose: 250 mg Vitamin A (Vitamin A & D Oint Ud Foilpak) 0.5 ea TOP Q1H PRN PRN Reason: Dry skin Last Admin: 11/15/17 10:25 Dose: 0.5 ea - Labs Labs: 11/22/17 06:04 11/22/17 06:04 PT 13.4 SECONDS (9.7-12.2) H 10/14/17 16:30 INR 1.2 10/14/17 16:30 APTT 28 SECONDS (21-34) 10/14/17 16:30
[2017-11-23] MEDS: (Novolog) Insulin Aspart, Recombinant 100 u/ml 10 ml vial SC SCH ×4 (00:15→18:09)
[2017-11-23] MEDS: Ipratropium 0.02% Inhal Soln (0.5 mg/2.5 ml) UD IH SCH ×4 (01:19→19:21)
[2017-11-23 06:17] LABS: BASO # 0.1 K/uL (0.0-0.2); BASO % 0.6 % (0.0-2.0); EOS # 0.2 K/uL (0.0-0.7); EOS % 1.6 % (0.0-4.0); HEMATOCRIT 29.7 % (35.0-51.0); LYMPH # 1.8 K/uL (1.0-4.3); LYMPH % 10.9 % (20.0-40.0); MEAN CELL VOLUME 92.2 fL (80.0-94.0); MEAN CORPUSCULAR HEMOGLOBIN 29.1 pg (27.0-31.0); MEAN CORPUSCULAR HGB CONC 31.5 g/dL (33.0-37.0); MEAN PLATELET VOLUME 7.9 fL (7.2-11.7); MONO # 0.9 K/uL (0.0-0.8); MONO % 5.7 % (0.0-10.0); NRBC % 0.1 % (0.0-2.0); RED CELL DISTRIBUTION WIDTH 19.4 % (11.5-14.5); WHITE BLOOD COUNT 16.1 K/uL (4.8-10.8)
[2017-11-23] MEDS: Loperamide Hydrochloride 1 mg/5 ml Cup PO PRN (07:18)
--- NOTE | 2017-11-23 07:40 | CP.PCM.PN ---
<Aubree García - Last Filed: 11/23/17 15:54> Subjective - Date & Time of Evaluation Date of Evaluation: 11/23/17 Time of Evaluation: 07:38 - Subjective Subjective: Medicine Progress Note: Hospitalist Service Patient seen and examined at bedside. Per nursing no acute events overnight. Patient is having loose stools from rectal tube. Patient is awake and alert, non -verbal. ROS not obtained. Patient for dialysis today. Objective - Vital Signs/Intake and Output Vital Signs (last 24 hours): Temp Pulse Resp BP Pulse Ox 98.6 F 124 H 23 139/81 97 11/23/17 00:00 11/23/17 00:00 11/23/17 00:00 11/23/17 00:00 11/23/17 00:00 - Medications Medications: Current Medications Ascorbic Acid (Vitamin C 500 Mg Tab) 500 mg PEG DAILY [facility] Last Admin: 11/22/17 10:40 Dose: 500 mg Aspirin (Aspirin Chewable) 81 mg PO DAILY [facility] Last Admin: 11/22/17 10:40 Dose: 81 mg Calcitriol (Rocaltrol) 0.25 mcg PEG DAILY [facility] Last Admin: 11/22/17 10:40 Dose: 0.25 mcg Calcium Acetate (Phoslo) 2,001 mg GT TIDCC [facility] Last Admin: 11/22/17 18:02 Dose: 2,001 mg Epoetin Chencho (Procrit) 10,000 unit IV MWF [facility] Last Admin: 11/21/17 16:50 Dose: 10,000 unit Famotidine (Pepcid) 20 mg PEG DAILY [facility] Last Admin: 11/22/17 10:40 Dose: 20 mg Imipenem/Cilastatin Sodium 500 (mg/ Sodium Chloride) 100 mls @ 100 mls/hr IV Q12H [facility] Last Admin: 11/23/17 07:15 Dose: 100 mls/hr Insulin Aspart (Novolog) 0 unit SC Q6 [facility] PRN Reason: Protocol Last Admin: 11/23/17 06:20 Dose: 2 unit Insulin Detemir (Levemir) 35 unit SC Q12 [facility] Last Admin: 11/22/17 21:22 Dose: 35 unit Ipratropium [place] (Atrovent) 0.5 mg IH RQ6 [facility] Last Admin: 11/23/17 01:19 Dose: 0.5 mg Loperamide HCl (Imodium) 1 mg PO Q4H PRN PRN Reason: Diarrhea Last Admin: 11/23/17 07:18 Dose: 1 mg Metoprolol Tartrate (Lopressor) 12.5 mg PEG BID [facility] Last Admin: 11/22/17 18:02 Dose: 12.5 mg Midodrine (Proamatine) 10 mg PO TID [facility] Last Admin: 11/22/17 18:03 Dose: Not Given Multivitamins (Hexavitamin) 1 tab PEG DAILY [facility] Last Admin: 11/22/17 10:40 Dose: 1 tab Rosuvastatin Calcium (Crestor) 10 mg PEG HS [facility] Last Admin: 11/22/17 21:21 Dose: 10 mg Saccharomyces Boulardii (Florastor) 250 mg PEG BID [facility] Last Admin: 11/22/17 18:02 Dose: 250 mg Vitamin A (Vitamin A & D Oint Ud Foilpak) 0.5 ea TOP Q1H PRN PRN Reason: Dry skin Last Admin: 11/15/17 10:25 Dose: 0.5 ea - Labs Labs: 11/23/17 06:08 11/22/17 06:04 PT 13.4 SECONDS (9.7-12.2) H 10/14/17 16:30 INR 1.2 10/14/17 16:30 APTT 28 SECONDS (21-34) 10/14/17 16:30 - Constitutional Appears: No Acute Distress - Head Exam Head Exam: ATRAUMATIC, NORMAL INSPECTION - Eye Exam Eye Exam: EOMI - ENT Exam ENT Exam: Mucous Membranes Moist - Neck Exam Additional comments: +TRACH COLLAR - Respiratory Exam Respiratory Exam: Decreased Breath Sounds, NORMAL BREATHING PATTERN. absent: Rales, Rhonchi, Wheezes, Respiratory Distress - Cardiovascular Exam Cardiovascular Exam: Tachycardia, +S1, +S2 - GI/Abdominal Exam GI & Abdominal Exam: Soft. absent: Guarding, Rigid, Tenderness Additional comments: +PEG TUBE - Rectal Exam Additional comments: +rectal tube with loose stool - Extremities Exam Additional comments: +prevalon boots and SCDs +right heel ulcer (unstageable) - Back Exam Additional comments: Unstageable sacral decubitus ulcer that is extending into ischial tuberosities Bilateral hip ulcers (stage 2) - Neurological Exam Neurological Exam: Alert, Awake - Psychiatric Exam Psychiatric exam: Normal Affect, Normal Mood - Skin Skin Exam: Dry, Normal Color, Warm Assessment and Plan - Assessment and Plan (Free Text) Assessment: 1). Hx Acute Respiratory Failure/ARDS/Cadiac Arrest/NSTEMI: * Dr Cortés (cardiology) on the case-->help appreciated * Dr. Mena (pulmonary) on the case-->help appreciated * Code Blue on 08/10: asystole, cardiopulmonary resuscitative measures initiated , requiring 3 epis, bicarbonate, ROSC achieved and intubated and brought to the ICU. Patient has had multiple for hypotension. Latest RANGE MANAGER was on 10/14--> transferred to [facility] and on the floors. * Atrovent 0.5mg Inhaled RQ6H * Aspirin 81mg PO daily * Lopressor 12.5mg PO BID with holding parameters * Midodrine 10mg PO TID * Crestor 10mg PO qHS 2). Hx Abnormal Stress Test/AICD/CAD: * Dr Cortés (cardiology) on the case-->help appreciated * Dr. Mena (pulmonary) on the case-->help appreciated * Code Blue on 08/10: asystole, cardiopulmonary resuscitative measures initiated , requiring 3 epis, bicarbonate, ROSC achieved and intubated and brought to the ICU. Patient has had multiple for hypotension. Latest RANGE MANAGER was on 10/14/17 * Aspirin 81mg PO daily * Lopressor 12.5mg PO BID with holding parameters * Midodrine 10mg PO TID * Crestor 10mg PO qHS 3). Hx Atrial Flutter: * Lopressor 12.5mg PO BID with holding parameters * Unable to anticoagulate secondary to occult stool blood 4). 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 Leukocytosis * Infectious Disease (Dr. Lawrence) on the case-->help appreciated * Blood Culture 10/22/17 is finalized as negative. * Sputum culture 10/14/17 is negative. * Stool cultures 10/20/17 are negative. 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 * Right Arm Midline Tip 10/06/17 culture is negative and removed. Midline Tip Culture 10/26/17 is negative. * Blood Cultures 10/28/17 are negative to date. * Iv ABx: Cefepime (10/12/17 through 10/24/17), Aztreonam (10/13/17 through )), Diflucan (10/14/17 through 10/26/17). * Off Meropenem 500 mg IV Q8H (10/28;), Micafungin 100 mg IV Q24H (10/27/17- 11/17/2017) * Started on Primaxin given shortage on Meropenem * Primaxin 500mg IVQ12 (active since 11/17/17) * I spoke with 11/02, she does not want Permacath replaced given cardiac risk for operation/anesthesia and reaffirmed on 11/16. * ID Recommended for permcath and sacral debridement by ID, has refused 11/02. * Sacral ulcer unstageable; Wound care is on board 6). Hx Pneumonia, Fungemia * ID on the case-->help appreciated * Currently on Meropenem 500 mg IV Q8H (10/28/17-), Micofungin 100 mg IV Q24H ( 10/27/17-11/17/2017). * Started on Primaxin given shortage on Meropenem * Primaxin 500mg IVQ12 (active since 11/17/17) * I spoke with 11/02, she does not want Permacath replaced given cardiac risk for operation/anesthesia. * ID Recommended for permcath and sacral debridement by ID, has refused 11/02 and 11/16. * Sacral ulcer unstageable; Wound care is on board 7). Hx HTN: * Lopressor 12.5mg PEG BID with holding parameters 8). Hx CKD on HD M--. * Family would like to continue HD through current Permacath and declined surgical intervention to change catheter (due to the Blood Culture 10/24/17 being positive for Reny glabrata) as recommended by Vascular Surgery and Infectious Disease. * I discussed with at bedside 11/02, she continues to deny the exchange secondary to cardiac risk. * Phoslo 2001mg GT TIDCC * Epocrit 10,000 unit IV MWF 9). Hx DM: * Levemir 35 units [id number] * Insulin sliding scale * monitor [id number] * HgbA1c 8.4 10). Hx HLD * Crestor 10mg PO qHS 11). Hx Anemia: * Eliquis stopped 10/24/17 secondary to positive stool occult blood * Stool Occult is Positive and GI Dr. Dsouza was reconsulted however no further workup recommended in light of patient current status. * Procrit 10,000 units -- * Ascorbic acid 500mg daily * s/p 1 unit of PRBC 11/04 given declining H/H * HgB/Hct are currently stable 12). Hx DVT; Left upper Extremity DVT+ * Eliquis stopped 10/24/17 given positive bloody stool * Repeat dopplers LE 08/09/17 are negative for DVT * Left UE Doppler 11/08/17 was POSITIVE for DVTs in Left Brachial and Left Axillary Veins: Can NOT anticoagulate due to history of bleeding (requiring blood transfusion) with anticoagulation 13). Hx UTI: * Yeast on culture 10/24/17. * He was on Micafungin 100 mg IV Q24H (10/27-11/17/2017). He may be colonized with this. * ID Recommended for permcath and sacral debridement by ID, has refused 11/02 and confirmed 11/16 14). Hx Alzheimer's Dementia * CT head w/o contrast (08/10/17):acute os subacute lacune infarct is not excluded in the left basal ganglia inferiorly with definitive chronic lacune identified in the right basal ganglia superiorly. No acute or subacute lobar brain infarction is appreciable by standard CT criteria. Mild age-related neuro * CT Head w/o contrast (10/14/17): no intracranial mass, hemorrhage, or evidence of acute infarct. 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 Old right external capsule ischemic change. Age related atrophy and chronic microvascular ischemic change 15). Hx Sacral Ulcer: * General surgery (Dr. Forbes) on board-->help appreciated * Bone Scan performed 09/17/17 to check for Osteomyelitis at the Sacrum: negative for osteomyelitis * Currently on MediHoney daily, family has declined further debridement by surgery. Wound care on board * Recommended for permcath and sacral debridement by ID, has refused 11/02 16). Hx Right Heal Ulcer * Podiatry (Dr. Lundberg) on board-->help appreciated * Continue Prevalon boots * Unstageable 17). Hx Elevated LFTs * Normalized; patient is on statin and Micafungin 18). Diarrhea: * Rectal tube in place * Stool Studies 10/20/17 are negative * On loperamide PRN 19). Hx Hyponatremia: * Normalized 20). Hx PEG Tube: * Vital 1.5 at 50 ml/hour 21). Hx Hypocalcemia: * Continue Calcitriol 0.25mcg daily * Continue phoslo 2001mg GT TIDCC 22). Prophylactic Measures: * Started on dialysis 08/15/17 * (Jovita Serrano): * is currently admitted to the hospital at this time * Patient is now: DNR * Palliative care on board * Bioethics consult () to evaluated-->notes under patient care-- Patient's may make decision. DISPOSITION: Per [facility] in [place], denied the patient. Will continue to follow up on placement facilities. <Cullen Barth - Last Filed: 11/23/17 17:06> Objective - Vital Signs/Intake and Output Vital Signs (last 24 hours): Temp Pulse Resp BP Pulse Ox 98 F 118 H 24 101/40 L 98 11/23/17 16:35 11/23/17 16:35 11/23/17 16:35 11/23/17 16:35 11/23/17 13:35 Intake and Output: 11/23/17 11/23/17 06:59 18:59 Intake Total 760 Output Total 600 Balance 160 - Medications Medications: Current Medications Ascorbic Acid (Vitamin C 500 Mg Tab) 500 mg PEG DAILY [facility] Last Admin: 11/23/17 10:05 Dose: 500 mg Aspirin (Aspirin Chewable) 81 mg PO DAILY [facility] Last Admin: 11/23/17 10:04 Dose: 81 mg Calcitriol (Rocaltrol) 0.25 mcg PEG DAILY [facility] Last Admin: 11/23/17 10:04 Dose: 0.25 mcg Calcium Acetate (Phoslo) 2,001 mg GT TIDCC [facility] Last Admin: 11/23/17 11:38 Dose: 2,001 mg Epoetin Chencho (Procrit) 10,000 unit IV MWF [facility] Last Admin: 11/23/17 16:25 Dose: 10,000 unit Famotidine (Pepcid) 20 mg PEG DAILY [facility] Last Admin: 11/23/17 10:04 Dose: 20 mg Imipenem/Cilastatin Sodium 250 (mg/ Sodium Chloride) 100 mls @ 100 mls/hr IV Q12 [facility] Last Admin: 11/23/17 11:37 Dose: 100 mls/hr Insulin Aspart (Novolog) 0 unit SC Q6 [facility] FERNANDO PRN Reason: Protocol Last Admin: 11/23/17 11:39 Dose: 3 unit Insulin Detemir (Levemir) 35 unit SC Q12 [facility] Last Admin: 11/23/17 10:08 Dose: 35 unit Ipratropium [place] (Atrovent) 0.5 mg IH RQ6 [facility] Last Admin: 11/23/17 13:18 Dose: Not Given Loperamide HCl (Imodium) 1 mg PO Q4H PRN PRN Reason: Diarrhea Last Admin: 11/23/17 07:18 Dose: 1 mg Metoprolol Tartrate (Lopressor) 12.5 mg PEG BID [facility] Last Admin: 11/23/17 10:04 Dose: 12.5 mg Midodrine (Proamatine) 10 mg PO TID [facility] Last Admin: 11/23/17 13:26 Dose: Not Given Multivitamins (Hexavitamin) 1 tab PEG DAILY [facility] Last Admin: 11/23/17 10:04 Dose: 1 tab Rosuvastatin Calcium (Crestor) 10 mg PEG HS [facility] Last Admin: 11/22/17 21:21 Dose: 10 mg Saccharomyces Boulardii (Florastor) 250 mg PEG BID [facility] Last Admin: 11/23/17 10:04 Dose: 250 mg Vitamin A (Vitamin A & D Oint Ud Foilpak) 0.5 ea TOP Q1H PRN PRN Reason: Dry skin Last Admin: 11/23/17 10:03 Dose: 0.5 ea - Labs Labs: 11/23/17 06:08 11/23/17 06:08 PT 13.4 SECONDS (9.7-12.2) H 10/14/17 16:30 INR 1.2 10/14/17 16:30 APTT 28 SECONDS (21-34) 10/14/17 16:30 Attending/Attestation - Attestation I have personally seen and examined this patient.: Yes I have fully participated in the care of the patient.: Yes I have reviewed all pertinent clinical information, including history, physical exam and plan: Yes Notes (Text): 11/23/17 17:01 Hospitalist Progress Note Patient was seen and examined 2:30 PM 11/22/17 while he was receiving HD Exam, assessment and plan were thoroughly gone over with the resident. I spoke with [facility] and she informed me that patient was denied by [facility] in [place]. This facility accepted patient in the past but declined as it was too far for her to travel by bus from her residence (30 minute bus ride). [facility] will keep Medicine Team posted on any further placement options for this patient. Cullen Barth D.O.
[2017-11-23 08:26] LABS: ALB/GLOB RATIO 0.7 (1.0-2.1); BILIRUBIN,TOTAL 0.5 mg/dL (0.2-1.3); POTASSIUM 5.7 mmol/L (3.6-5.2); TOTAL PROTEIN 6.1 g/dL (6.3-8.3)
[2017-11-23] MEDS: Vitamins A & D Oint UD Foilpak TOP PRN (10:03)
[2017-11-23] MEDS: Multiple Vitamins Tab PEG SCH (10:04)
[2017-11-23] MEDS: Saccharomyces Boulardi 250 mg Cap PEG SCH ×2 (10:04→18:08)
[2017-11-23] MEDS: Insulin Detemir 100 units/ml Vial (Levemir) SC SCH ×2 (10:08→22:02)
[2017-11-23] MEDS: Epoetin Alfa 10,000 unit/ml Dialysis IV SCH (16:25)
--- NOTE | 2017-11-23 23:12 | CP.PCM.PN ---
Subjective - Date & Time of Evaluation Date of Evaluation: 11/23/17 Time of Evaluation: 07:40 - Subjective Subjective: Patient seen and evaluated No cardiac events noted Non verbal Objective - Vital Signs/Intake and Output Vital Signs (last 24 hours): Temp Pulse Resp BP Pulse Ox 97.9 F 111 H 21 103/64 98 11/23/17 17:10 11/23/17 17:10 11/23/17 17:10 11/23/17 17:10 11/23/17 17:10 Intake and Output: 11/23/17 11/24/17 18:59 06:59 Intake Total 760 Balance 760 - Medications Medications: Current Medications Ascorbic Acid (Vitamin C 500 Mg Tab) 500 mg PEG DAILY [facility] Last Admin: 11/23/17 10:05 Dose: 500 mg Aspirin (Aspirin Chewable) 81 mg PO DAILY [facility] Last Admin: 11/23/17 10:04 Dose: 81 mg Calcitriol (Rocaltrol) 0.25 mcg PEG DAILY [facility] Last Admin: 11/23/17 10:04 Dose: 0.25 mcg Calcium Acetate (Phoslo) 2,001 mg GT TIDCC [facility] Last Admin: 11/23/17 17:00 Dose: 2,001 mg Epoetin Chencho (Procrit) 10,000 unit IV MWF [facility] Last Admin: 11/23/17 16:25 Dose: 10,000 unit Famotidine (Pepcid) 20 mg PEG DAILY [facility] Last Admin: 11/23/17 10:04 Dose: 20 mg Imipenem/Cilastatin Sodium 250 (mg/ Sodium Chloride) 100 mls @ 100 mls/hr IV Q12 [facility] Last Admin: 11/23/17 21:59 Dose: 100 mls/hr Insulin Aspart (Novolog) 0 unit SC Q6 [facility] PRN Reason: Protocol Last Admin: 11/23/17 18:09 Dose: Not Given Insulin Detemir (Levemir) 35 unit SC Q12 [facility] Last Admin: 11/23/17 22:02 Dose: 35 unit Ipratropium [place] (Atrovent) 0.5 mg IH RQ6 [facility] Last Admin: 11/23/17 19:21 Dose: 0.5 mg Loperamide HCl (Imodium) 1 mg PO Q4H PRN PRN Reason: Diarrhea Last Admin: 11/23/17 07:18 Dose: 1 mg Metoprolol Tartrate (Lopressor) 12.5 mg PEG BID [facility] Last Admin: 11/23/17 18:09 Dose: 12.5 mg Midodrine (Proamatine) 10 mg PO TID [facility] Last Admin: 11/23/17 18:10 Dose: 10 mg Multivitamins (Hexavitamin) 1 tab PEG DAILY [facility] Last Admin: 11/23/17 10:04 Dose: 1 tab Rosuvastatin Calcium (Crestor) 10 mg PEG HS [facility] Last Admin: 11/23/17 21:44 Dose: 10 mg Saccharomyces Boulardii (Florastor) 250 mg PEG BID [facility] Last Admin: 11/23/17 18:08 Dose: 250 mg Vitamin A (Vitamin A & D Oint Ud Foilpak) 0.5 ea TOP Q1H PRN PRN Reason: Dry skin Last Admin: 11/23/17 10:03 Dose: 0.5 ea - Labs Labs: 11/23/17 06:08 11/23/17 06:08 PT 13.4 SECONDS (9.7-12.2) H 10/14/17 16:30 INR 1.2 10/14/17 16:30 APTT 28 SECONDS (21-34) 10/14/17 16:30
[2017-11-24] MEDS: (Novolog) Insulin Aspart, Recombinant 100 u/ml 10 ml vial SC SCH ×4 (00:08→18:17)
[2017-11-24] MEDS: Ipratropium 0.02% Inhal Soln (0.5 mg/2.5 ml) UD IH SCH ×4 (01:28→19:20)
[2017-11-24 07:55] LABS: BASO # 0.1 K/uL (0.0-0.2); BASO % 1.1 % (0.0-2.0); EOS # 0.4 K/uL (0.0-0.7); HEMATOCRIT 28.1 % (35.0-51.0); LYMPH # 1.6 K/uL (1.0-4.3); LYMPH % 12.2 % (20.0-40.0); MEAN CELL VOLUME 91.9 fL (80.0-94.0); MEAN CORPUSCULAR HEMOGLOBIN 29.1 pg (27.0-31.0); MEAN CORPUSCULAR HGB CONC 31.7 g/dL (33.0-37.0); MEAN PLATELET VOLUME 7.7 fL (7.2-11.7); MONO # 0.8 K/uL (0.0-0.8); MONO % 5.8 % (0.0-10.0); NRBC % 0.2 % (0.0-2.0); RED CELL DISTRIBUTION WIDTH 18.9 % (11.5-14.5); WHITE BLOOD COUNT 13.4 K/uL (4.8-10.8)
[2017-11-24 09:00] LABS: ALB/GLOB RATIO 0.7 (1.0-2.1); BILIRUBIN,TOTAL 0.4 mg/dL (0.2-1.3); CALCIUM 7.8 mg/dl (8.6-10.4); POTASSIUM 5.5 mmol/L (3.6-5.2); TOTAL PROTEIN 6.3 g/dL (6.3-8.3)
[2017-11-24] MEDS: Saccharomyces Boulardi 250 mg Cap PEG SCH ×2 (09:06→18:14)
[2017-11-24] MEDS: Multiple Vitamins Tab PEG SCH (09:08)
[2017-11-24] MEDS: Insulin Detemir 100 units/ml Vial (Levemir) SC SCH (09:09)
--- NOTE | 2017-11-24 10:31 | CP.PCM.PN ---
Subjective - Date & Time of Evaluation Date of Evaluation: 11/24/17 Time of Evaluation: 10:29 - Subjective Subjective: Stable dialysis 11/23 Remains lethargic, on trach collar K elevated Objective - Vital Signs/Intake and Output Vital Signs (last 24 hours): Temp Pulse Resp BP Pulse Ox 98.0 F 100 H 20 133/60 97 11/24/17 07:40 11/24/17 07:40 11/24/17 07:40 11/24/17 07:40 11/24/17 07:40 Intake and Output: 11/24/17 11/24/17 06:59 18:59 Intake Total 1420 Output Total 150 Balance 1270 - Medications Medications: Current Medications Ascorbic Acid (Vitamin C 500 Mg Tab) 500 mg PEG DAILY [facility] Last Admin: 11/24/17 09:09 Dose: 500 mg Aspirin (Aspirin Chewable) 81 mg PO DAILY [facility] Last Admin: 11/24/17 09:08 Dose: 81 mg Calcitriol (Rocaltrol) 0.25 mcg PEG DAILY [facility] Last Admin: 11/24/17 09:08 Dose: 0.25 mcg Calcium Acetate (Phoslo) 2,001 mg GT TIDCC [facility] Last Admin: 11/24/17 08:51 Dose: 2,001 mg Epoetin Chencho (Procrit) 10,000 unit IV MWF [facility] Last Admin: 11/23/17 16:25 Dose: 10,000 unit Famotidine (Pepcid) 20 mg PEG DAILY [facility] Last Admin: 11/24/17 09:08 Dose: 20 mg Imipenem/Cilastatin Sodium 250 (mg/ Sodium Chloride) 100 mls @ 100 mls/hr IV Q12 [facility] Last Admin: 11/24/17 10:05 Dose: 100 mls/hr Insulin Aspart (Novolog) 0 unit SC Q6 [facility] PRN Reason: Protocol Last Admin: 11/24/17 06:27 Dose: 1 unit Insulin Detemir (Levemir) 35 unit SC Q12 [facility] Last Admin: 11/24/17 09:09 Dose: 35 unit Ipratropium [place] (Atrovent) 0.5 mg IH RQ6 [facility] Last Admin: 11/24/17 07:47 Dose: 0.5 mg Loperamide HCl (Imodium) 1 mg PO Q4H PRN PRN Reason: Diarrhea Last Admin: 11/23/17 07:18 Dose: 1 mg Metoprolol Tartrate (Lopressor) 12.5 mg PEG BID [facility] Last Admin: 11/24/17 09:08 Dose: 12.5 mg Midodrine (Proamatine) 10 mg PO TID [facility] Last Admin: 11/24/17 09:10 Dose: Not Given Multivitamins (Hexavitamin) 1 tab PEG DAILY [facility] Last Admin: 11/24/17 09:08 Dose: 1 tab Rosuvastatin Calcium (Crestor) 10 mg PEG HS [facility] Last Admin: 11/23/17 21:44 Dose: 10 mg Saccharomyces Boulardii (Florastor) 250 mg PEG BID [facility] Last Admin: 11/24/17 09:06 Dose: 250 mg Vitamin A (Vitamin A & D Oint Ud Foilpak) 0.5 ea TOP Q1H PRN PRN Reason: Dry skin Last Admin: 11/23/17 10:03 Dose: 0.5 ea - Labs Labs: 11/24/17 07:29 11/24/17 07:29 PT 13.4 SECONDS (9.7-12.2) H 10/14/17 16:30 INR 1.2 10/14/17 16:30 APTT 28 SECONDS (21-34) 10/14/17 16:30 - Constitutional Appears: Toxic, Chronically Ill - Head Exam Head Exam: ATRAUMATIC, NORMAL INSPECTION - Eye Exam Eye Exam: EOMI, Normal appearance - Neck Exam Neck Exam: Normal Inspection. absent: Tenderness - Respiratory Exam Respiratory Exam: Rhonchi, Respiratory Distress - GI/Abdominal Exam GI & Abdominal Exam: Soft. absent: Tenderness - Extremities Exam Extremities Exam: Normal Inspection. absent: Tenderness - Neurological Exam Neurological Exam: Altered, Motor Sensory Deficit - Skin Skin Exam: Dry, Warm Assessment and Plan (1) Acute on chronic renal failure Status: Resolved (2) CAD (coronary artery disease) Status: Chronic (3) CHF exacerbation Status: Chronic (4) Type 2 diabetes mellitus with diabetic nephropathy Status: Acute (5) Cardiorenal disease Status: Acute (6) ESRD (end stage renal disease) Status: Acute (7) Sacral decubitus ulcer Status: Acute - Assessment and Plan (Free Text) Plan: Dialysis MWF Same meds Supportive care
--- NOTE | 2017-11-24 10:42 | CP.PCM.PN ---
<Aubree García - Last Filed: 11/24/17 12:44> Subjective - Date & Time of Evaluation Date of Evaluation: 11/24/17 Time of Evaluation: 10:40 - Subjective Subjective: Medicine Progress Note: Hospitalist Service Patient seen and examined at bedside. Per nursing no acute events overnight. Patient is lethargic this morning. Opens eyes to verbal stimuli. Not following commands. ROS not obtained. Tolerated Dialysis yesterday. Objective - Vital Signs/Intake and Output Vital Signs (last 24 hours): Temp Pulse Resp BP Pulse Ox 98.0 F 100 H 20 133/60 97 11/24/17 07:40 11/24/17 07:40 11/24/17 07:40 11/24/17 07:40 11/24/17 07:40 Intake and Output: 11/24/17 11/24/17 06:59 18:59 Intake Total 1420 Output Total 150 Balance 1270 - Medications Medications: Current Medications Ascorbic Acid (Vitamin C 500 Mg Tab) 500 mg PEG DAILY [facility] Last Admin: 11/24/17 09:09 Dose: 500 mg Aspirin (Aspirin Chewable) 81 mg PO DAILY [facility] Last Admin: 11/24/17 09:08 Dose: 81 mg Calcitriol (Rocaltrol) 0.25 mcg PEG DAILY [facility] Last Admin: 11/24/17 09:08 Dose: 0.25 mcg Calcium Acetate (Phoslo) 2,001 mg GT TIDCC [facility] Last Admin: 11/24/17 08:51 Dose: 2,001 mg Epoetin Chencho (Procrit) 10,000 unit IV MWF [facility] Last Admin: 11/23/17 16:25 Dose: 10,000 unit Famotidine (Pepcid) 20 mg PEG DAILY [facility] Last Admin: 11/24/17 09:08 Dose: 20 mg Imipenem/Cilastatin Sodium 250 (mg/ Sodium Chloride) 100 mls @ 100 mls/hr IV Q12 [facility] Last Admin: 11/24/17 10:05 Dose: 100 mls/hr Insulin Aspart (Novolog) 0 unit SC Q6 [facility] PRN Reason: Protocol Last Admin: 11/24/17 06:27 Dose: 1 unit Insulin Detemir (Levemir) 35 unit SC Q12 [facility] Last Admin: 11/24/17 09:09 Dose: 35 unit Ipratropium [place] (Atrovent) 0.5 mg IH RQ6 [facility] Last Admin: 11/24/17 07:47 Dose: 0.5 mg Loperamide HCl (Imodium) 1 mg PO Q4H PRN PRN Reason: Diarrhea Last Admin: 11/23/17 07:18 Dose: 1 mg Metoprolol Tartrate (Lopressor) 12.5 mg PEG BID [facility] Last Admin: 11/24/17 09:08 Dose: 12.5 mg Midodrine (Proamatine) 10 mg PO TID [facility] Last Admin: 11/24/17 09:10 Dose: Not Given Multivitamins (Hexavitamin) 1 tab PEG DAILY [facility] Last Admin: 11/24/17 09:08 Dose: 1 tab Rosuvastatin Calcium (Crestor) 10 mg PEG HS [facility] Last Admin: 11/23/17 21:44 Dose: 10 mg Saccharomyces Boulardii (Florastor) 250 mg PEG BID [facility] Last Admin: 11/24/17 09:06 Dose: 250 mg Vitamin A (Vitamin A & D Oint Ud Foilpak) 0.5 ea TOP Q1H PRN PRN Reason: Dry skin Last Admin: 11/23/17 10:03 Dose: 0.5 ea - Labs Labs: 11/24/17 07:29 11/24/17 07:29 PT 13.4 SECONDS (9.7-12.2) H 10/14/17 16:30 INR 1.2 10/14/17 16:30 APTT 28 SECONDS (21-34) 10/14/17 16:30 - Constitutional Appears: Non-toxic, No Acute Distress - Head Exam Head Exam: ATRAUMATIC, NORMAL INSPECTION - Eye Exam Eye Exam: EOMI, Normal appearance - ENT Exam ENT Exam: Mucous Membranes Moist - Respiratory Exam Respiratory Exam: Decreased Breath Sounds, NORMAL BREATHING PATTERN. absent: Rales, Rhonchi, Wheezes, Respiratory Distress - Cardiovascular Exam Cardiovascular Exam: Tachycardia, +S1, +S2. absent: Murmur Additional comments: + right chest wall permacath - GI/Abdominal Exam GI & Abdominal Exam: Soft. absent: Firm, Guarding, Rigid, Tenderness Additional comments: +peg tube - Rectal Exam Additional comments: +rectal tube - Extremities Exam Additional comments: Right heel ulcer (unstageable) +Prevalon boots and SCDs - Back Exam Additional comments: Unstageable sacral decubitus ulcer that is extending into ischial tuberosities Bilateral hip ulcers (stage 2) - Neurological Exam Neurological Exam: Alert, Awake - Psychiatric Exam Psychiatric exam: Normal Affect, Normal Mood - Skin Skin Exam: Normal Color, Warm Assessment and Plan - Assessment and Plan (Free Text) Assessment: 1). Hx Acute Respiratory Failure/ARDS/Cadiac Arrest/NSTEMI: * Dr Cortés (cardiology) on the case-->help appreciated * Dr. Mena (pulmonary) on the case-->help appreciated * Code Blue on 08/10: asystole, cardiopulmonary resuscitative measures initiated , requiring 3 epis, bicarbonate, ROSC achieved and intubated and brought to the ICU. Patient has had multiple for hypotension. Latest [facility] [employer] was on 10/14--> transferred to [facility] and on the floors. * Atrovent 0.5mg Inhaled RQ6H * Aspirin 81mg PO daily * Lopressor 12.5mg PO BID with holding parameters * Midodrine 10mg PO TID * Crestor 10mg PO qHS 2). Hx Abnormal Stress Test/AICD/CAD: * Dr Cortés (cardiology) on the case-->help appreciated * Dr. Mena (pulmonary) on the case-->help appreciated * Code Blue on 08/10: asystole, cardiopulmonary resuscitative measures initiated , requiring 3 epis, bicarbonate, ROSC achieved and intubated and brought to the ICU. Patient has had multiple for hypotension. Latest [facility] was on 10/14/17 * Aspirin 81mg PO daily * Lopressor 12.5mg PO BID with holding parameters * Midodrine 10mg PO TID * Crestor 10mg PO qHS 3). Hx Atrial Flutter: * Lopressor 12.5mg PO BID with holding parameters * Unable to anticoagulate secondary to occult stool blood 4). 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 Leukocytosis * Infectious Disease (Dr. Lawrence) on the case-->help appreciated * Blood Culture 10/22/17 is finalized as negative. * Sputum culture 10/14/17 is negative. * Stool cultures 10/20/17 are negative. 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 * Right Arm Midline Tip 10/06/17 culture is negative and removed. Midline Tip Culture 10/26/17 is negative. * Blood Cultures 10/28/17 are negative to date. * Iv ABx: Cefepime (10/12/17 through 10/24/17), Aztreonam (10/13/17 through )), Diflucan (10/14/17 through 10/26/17). * Off Meropenem 500 mg IV Q8H (10/28;), Micafungin 100 mg IV Q24H (10/27/17- 11/17/2017) * Started on Primaxin given shortage on Meropenem * Primaxin 250mg IVQ12 discontinued (11/17/17-11/24/17) * I spoke with 11/02, she does not want Permacath replaced given cardiac risk for operation/anesthesia and reaffirmed on 11/16. * ID Recommended for permcath and sacral debridement by ID, has refused 11/02. * Sacral ulcer unstageable; Wound care is on board 6). Hx Pneumonia, Fungemia * ID on the case-->help appreciated * Currently on Meropenem 500 mg IV Q8H (10/28/17-), Micofungin 100 mg IV Q24H ( 10/27/17-11/17/2017). * Primaxin 250mg IVQ12 Discontinued (11/17/17-11/24/17) * I spoke with 11/02, she does not want Permacath replaced given cardiac risk for operation/anesthesia. * ID Recommended for permcath and sacral debridement by ID, has refused 11/02 and 11/16. * Sacral ulcer unstageable; Wound care is on board 7). Hx HTN: * Lopressor 12.5mg PEG BID with holding parameters 8). Hx CKD on HD -. * Family would like to continue HD through current Permacath and declined surgical intervention to change catheter (due to the Blood Culture 10/24/17 being positive for Reny glabrata) as recommended by Vascular Surgery and Infectious Disease. * I discussed with at bedside 11/02, she continues to deny the exchange secondary to cardiac risk. * Phoslo 2001mg GT TIDCC * Epocrit 10,000 unit IV MWF 9). Hx DM: * Levemir 35 units [id number] * Insulin sliding scale * monitor [id number] * HgbA1c 8.4 10). Hx HLD * Crestor 10mg PO qHS 11). Hx Anemia: * Eliquis stopped 10/24/17 secondary to positive stool occult blood * Stool Occult is Positive and GI Dr. Dsouza was reconsulted however no further workup recommended in light of patient current status. * Procrit 10,000 units -- * Ascorbic acid 500mg daily * s/p 1 unit of PRBC 11/04 given declining H/H * HgB/Hct are currently stable 12). Hx DVT; Left upper Extremity DVT+ * Eliquis stopped 10/24/17 given positive bloody stool * Repeat dopplers LE 08/09/17 are negative for DVT * Left UE Doppler 11/08/17 was POSITIVE for DVTs in Left Brachial and Left Axillary Veins: Can NOT anticoagulate due to history of bleeding (requiring blood transfusion) with anticoagulation 13). Hx UTI: * Yeast on culture 10/24/17. * He was on Micafungin 100 mg IV Q24H (10/27-11/17/2017). He may be colonized with this. * ID Recommended for permcath and sacral debridement by ID, has refused 11/02 and confirmed 11/16 14). Hx Alzheimer's Dementia * CT head w/o contrast (08/10/17):acute os subacute lacune infarct is not excluded in the left basal ganglia inferiorly with definitive chronic lacune identified in the right basal ganglia superiorly. No acute or subacute lobar brain infarction is appreciable by standard CT criteria. Mild age-related neuro * CT Head w/o contrast (10/14/17): no intracranial mass, hemorrhage, or evidence of acute infarct. 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 Old right external capsule ischemic change. Age related atrophy and chronic microvascular ischemic change 15). Hx Sacral Ulcer: * General surgery (Dr. Forbes) on board-->help appreciated * Bone Scan performed 09/17/17 to check for Osteomyelitis at the Sacrum: negative for osteomyelitis * Currently on MediHoney daily, family has declined further debridement by surgery. Wound care on board * Recommended for permcath and sacral debridement by ID, has refused 11/02 16). Hx Right Heal Ulcer * Podiatry (Dr. Lundberg) on board-->help appreciated * Continue Prevalon boots * Unstageable 17). Hx Elevated LFTs * Normalized; patient is on statin and Micafungin 18). Diarrhea: * Rectal tube in place * Stool Studies 10/20/17 are negative * On loperamide PRN 19). Hx Hyponatremia: * Normalized 20). Hx PEG Tube: * Nephro at 50 ml/hour 21). Hx Hypocalcemia: * Continue Calcitriol 0.25mcg daily * Continue phoslo 2001mg GT TIDCC 22) Hyperkalemia * Potassium 5.5 today * Will switch tube feeds to nepro 50mls/hr * One time dose of Kayexylate ordered 22). Prophylactic Measures: * Started on dialysis 08/15/17 * (Jovita Serrano): * is currently admitted to the hospital at this time * Patient is now: DNR * Palliative care on board * Bioethics consult () to evaluated-->notes under patient care-- Patient's may make decision. DISPOSITION: Per Newsroom Intern Glenn Cooper in [place], denied the patient. Will continue to follow up on placement facilities. <Cullen Barth - Last Filed: 11/24/17 16:14> Objective - Vital Signs/Intake and Output Vital Signs (last 24 hours): Temp Pulse Resp BP Pulse Ox 97.8 F 124 H 22 122/63 100 11/24/17 15:00 11/24/17 15:00 11/24/17 15:00 11/24/17 15:00 11/24/17 15:00 Intake and Output: 11/24/17 11/24/17 06:59 18:59 Intake Total 1420 Output Total 150 Balance 1270 - Medications Medications: Current Medications Ascorbic Acid (Vitamin C 500 Mg Tab) 500 mg PEG DAILY [facility] Last Admin: 11/24/17 09:09 Dose: 500 mg Aspirin (Aspirin Chewable) 81 mg PO DAILY [facility] Last Admin: 11/24/17 09:08 Dose: 81 mg Calcitriol (Rocaltrol) 0.25 mcg PEG DAILY [facility] Last Admin: 11/24/17 09:08 Dose: 0.25 mcg Calcium Acetate (Phoslo) 2,001 mg GT TIDCC [facility] Last Admin: 11/24/17 12:17 Dose: 2,001 mg Epoetin Chencho (Procrit) 10,000 unit IV MWF [facility] Last Admin: 11/23/17 16:25 Dose: 10,000 unit Famotidine (Pepcid) 20 mg PEG DAILY [facility] Last Admin: 11/24/17 09:08 Dose: 20 mg Insulin Aspart (Novolog) 0 unit SC Q6 [facility] PRN Reason: Protocol Last Admin: 11/24/17 12:17 Dose: 2 unit Insulin Detemir (Levemir) 35 unit SC Q12 [facility] Last Admin: 11/24/17 09:09 Dose: 35 unit Ipratropium [place] (Atrovent) 0.5 mg IH RQ6 [facility] Last Admin: 11/24/17 14:44 Dose: 0.5 mg Loperamide HCl (Imodium) 1 mg PO Q4H PRN PRN Reason: Diarrhea Last Admin: 11/23/17 07:18 Dose: 1 mg Metoprolol Tartrate (Lopressor) 12.5 mg PEG BID [facility] Last Admin: 11/24/17 09:08 Dose: 12.5 mg Midodrine (Proamatine) 10 mg PO TID [facility] Last Admin: 11/24/17 13:58 Dose: Not Given Multivitamins (Hexavitamin) 1 tab PEG DAILY [facility] Last Admin: 11/24/17 09:08 Dose: 1 tab Rosuvastatin Calcium (Crestor) 10 mg PEG HS [facility] Last Admin: 11/23/17 21:44 Dose: 10 mg Saccharomyces Boulardii (Florastor) 250 mg PEG BID [facility] Last Admin: 11/24/17 09:06 Dose: 250 mg Vitamin A (Vitamin A & D Oint Ud Foilpak) 0.5 ea TOP Q1H PRN PRN Reason: Dry skin Last Admin: 11/23/17 10:03 Dose: 0.5 ea - Labs Labs: 11/24/17 07:29 11/24/17 07:29 PT 13.4 SECONDS (9.7-12.2) H 10/14/17 16:30 INR 1.2 10/14/17 16:30 APTT 28 SECONDS (21-34) 10/14/17 16:30 Attending/Attestation - Attestation I have personally seen and examined this patient.: Yes I have fully participated in the care of the patient.: Yes I have reviewed all pertinent clinical information, including history, physical exam and plan: Yes Notes (Text): 11/24/17 16:10 Patient was seen and examined earlier today shortly after resident. Exam, Assessment and Plan were thoroughly gone over with the resident. 11/08/17: Extensive conversation with today at the time of exam. 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 If debridement did take place then there would be no guarantees that this would improve considering his multiple comorbidities and that this will also likely be extremely painful to patient. Also that if these areas were not debrided, then we ran the risk for sepsis as well osteomyelitis. So unfortunately this placed us between a rock and a hard place concerning this issue. Considering this, I asked her to consider Hospice and explained to her that this would involve discontinuing HD, antibiotics and would involve making him as comfortable as possible. I have reached out to Palliative Care Nurse Domitila and explained to that Nurse Ramesh will speak with her 11/09/17. also asked about the possibility of spinal anesthesia for the debridement and I told her that I would check with the surgery team but also reminded her of the original concerns about patient pain after the procedure and likelihood of lack of improvement considering the multiple comorbidities. 11/09/17: Nurse Ramesh spoke with via phone (concerning what I discussed with her in person on 11/08/17) and will meet with her on 11/10/17. 11/10/17: Nurse Ramesh met with . [place] that may be undocumented and relies on patient's benefits for financial source. Considering my conversation with patient on 11/08/17, I have ordered BioEthics consultation for further recommendations. Nurse Ramesh will speak with BioEthics Dr. Renan Bowles whose help will be appreciated concerning this issue. 11/15/17: per Bioethics consult: This patient has been here for five months (9-8 ) to present. He was admitted with shortness of breath and chest pain. Over these months his condition has deteriorated. He is now in need of heavy care. His expressed worry and concern. She agreed to a DNR. The consult involves the conflict of the not agreeing with placing her on comfort care. Bio-ethics committee recommends approaching the family again in light of insurance changes to place the patient in a long-term care facility ( halfway), or for the family to prepare for home health care if hospice will not be considered, even though it is thought appropriate for this patient. 11/16/17: Family meeting at 5:30PM with , pit crew support worker Glenn, Resident Ricky, with patient's . Assistance with Translation Micky Loya #[id number] Telugu Intrepretor.. Reviewed where does the patient go from the hospitalization and available options. Patient's has affirmed with definitive "NO" to surgical intervention which includes debridement of the sacrum, fistula placement, nor exchange out the permacath given the cardiac risk for any operation. This was explained to her very clearly. Patient's has affirmed with definitive "NO" to comfort care and no hospice care. She wants to continue to current therapy including dialysis and trach care treatment. She has affirmed "YES" to DNR. She reports if Gods's will to let him go naturally. Her example she reports if he has a heart attack, let him go. She recalls and reaffirms prior conversations with both my colleague Dr. Cullen Barth and affirms her POLST created with Maryann, Palliative Care nurse. She is aware there is pain associated with the sacrum wound. Glenn pit crew support worker explained the options available for the patient as listed as below Options: 1#: higher level facility to provide highly care specialized nursing for trach care and will need close distance to support dialysis 2#: hospice 3#: home. chooses option 1 in light of conversation as stated above in regards to Option 2. Given the great level of care he will need, not bring the patient home , which appears overwhelmed and affirms. has affirmed Option#1. However, decision regards which location is something she needs more time to think about. Social work has discussed in extensive detail in regards to locations in [place], [place] and [place], [place] for trach care and located dialysis center. There is no location in [facility] to support the level care that patient requires; which was explained by the social work. Social work works will try to work with given concerns including transportation, cost, and reports is available to answer any questions. has not made decision, needs time to think about it, will given decision tomorrow. 11/24/17: patient was accepted by [facility][1] in [place] and as my conversation with Newsroom Intern Glenn, patient's has agreed. Patient to be transferred there later today. Cullen Barth D.O.
[2017-11-24] MEDS ORDERED: Sod Polystyrene Sulf 15 gm/60 ml Susp PR ONE (13:30)
--- NOTE | 2017-11-24 14:29 | CP.PCM.CON ---
History of Present Illness - History of Present Illness History of Present Illness: Podiatry Progress Note for Dr. Lundberg 77 year old male seen at bedside for unstageable decubitus ulceration to right heel. Patient is seen resting comfortably in bed and asleep during the time of visit. Offloading boots to both feet and dressing clean, dry, intact. Review of Systems - Constitutional Constitutional: As Per HPI Past Patient History - Infectious Disease Hx of Infectious Diseases: None - Past Medical History & Family History Past Medical History?: Yes - Past Social History Smoking Status: Never Smoked Chewing Tobacco Use: No Cigar Use: No Alcohol: None Drugs: Denies Home Situation {Lives}: With Family - CARDIAC Hx Congestive Heart Failure: Yes Hx Hypertension: Yes - PULMONARY Hx Asthma: Yes - RENAL Hx Chronic Kidney Disease: Yes (REANAL INSUFFICIENCY) Hx Kidney Stones: Yes - ENDOCRINE/METABOLIC Hx Diabetes Mellitus Type 2: Yes - MUSCULOSKELETAL/RHEUMATOLOGICAL Hx Arthritis: Yes - GENITOURINARY/GYNECOLOGICAL Hx Genitourinary Disorders: Yes Hx Prostate Problems: Yes (ELEVATED PSA) - PSYCHIATRIC Hx Anxiety: Yes Hx Depression: Yes Hx Substance Use: No - SURGICAL HISTORY Hx Surgeries: Yes Other/Comment: pacemaker on - ANESTHESIA Hx Anesthesia: Yes Hx Anesthesia Reactions: No Hx Malignant Hyperthermia: No Meds Allergies/Adverse Reactions: Allergies Allergy/AdvReac Type Severity Reaction Status Date / Time No Known Allergies Allergy Verified 08/06/17 13:20 - Medications Medications: Current Medications Ascorbic Acid (Vitamin C 500 Mg Tab) 500 mg PEG DAILY [facility] Last Admin: 11/24/17 09:09 Dose: 500 mg Aspirin (Aspirin Chewable) 81 mg PO DAILY [facility] Last Admin: 11/24/17 09:08 Dose: 81 mg Calcitriol (Rocaltrol) 0.25 mcg PEG DAILY [facility] Last Admin: 11/24/17 09:08 Dose: 0.25 mcg Calcium Acetate (Phoslo) 2,001 mg GT TIDCC [facility] Last Admin: 11/24/17 12:17 Dose: 2,001 mg Epoetin Chencho (Procrit) 10,000 unit IV MWF [facility] Last Admin: 11/23/17 16:25 Dose: 10,000 unit Famotidine (Pepcid) 20 mg PEG DAILY [facility] Last Admin: 11/24/17 09:08 Dose: 20 mg Imipenem/Cilastatin Sodium 250 (mg/ Sodium Chloride) 100 mls @ 100 mls/hr IV Q12 [facility] Last Admin: 11/24/17 10:05 Dose: 100 mls/hr Insulin Aspart (Novolog) 0 unit SC Q6 [facility] FERNANDO PRN Reason: Protocol Last Admin: 11/24/17 12:17 Dose: 2 unit Insulin Detemir (Levemir) 35 unit SC Q12 [facility] Last Admin: 11/24/17 09:09 Dose: 35 unit Ipratropium Surveyor (Atrovent) 0.5 mg IH RQ6 [facility] Last Admin: 11/24/17 07:47 Dose: 0.5 mg Loperamide HCl (Imodium) 1 mg PO Q4H PRN PRN Reason: Diarrhea Last Admin: 11/23/17 07:18 Dose: 1 mg Metoprolol Tartrate (Lopressor) 12.5 mg PEG BID [facility] Last Admin: 11/24/17 09:08 Dose: 12.5 mg Midodrine (Proamatine) 10 mg PO TID [facility] Last Admin: 11/24/17 13:58 Dose: Not Given Multivitamins (Hexavitamin) 1 tab PEG DAILY [facility] Last Admin: 11/24/17 09:08 Dose: 1 tab Rosuvastatin Calcium (Crestor) 10 mg PEG HS [facility] Last Admin: 11/23/17 21:44 Dose: 10 mg Saccharomyces Boulardii (Florastor) 250 mg PEG BID [facility] Last Admin: 11/24/17 09:06 Dose: 250 mg Vitamin A (Vitamin A & D Oint Ud Foilpak) 0.5 ea TOP Q1H PRN PRN Reason: Dry skin Last Admin: 11/23/17 10:03 Dose: 0.5 ea Physical Exam - Constitutional Appears: Well, Non-toxic, No Acute Distress - Extremities Exam Additional comments: lower extremity focused exam: DERM- Medial aspect of right heel has a non-stageable ulcer with a necrotic eschar, no lincoln wound erythema, no drainage, no malodor, no cellulitis, no odor noted. No sign of acute infection is noted. VASC- DP and PT pulses palpable 1/4 b/l, CFT > 4 seconds all digits, temperature gradient wnl, no edema noted to the LE b/l NEURO- pedal sensation grossly diminished ORTHO- no tenderness on palpation to heels b/l Results - Vital Signs Recent Vital Signs: Last Vital Signs Temp 98.0 F 11/24/17 07:40 Pulse 100 H 11/24/17 07:40 Resp 20 11/24/17 07:40 BP 133/60 11/24/17 07:40 Pulse Ox 97 11/24/17 07:40 - Labs Result Diagrams: 11/24/17 07:29 11/24/17 07:29 Labs: Laboratory Results - last 24 hr 11/23/17 11/23/17 11/23/17 16:47 21:35 23:51 WBC RBC Hgb Hct MCV MCH MCHC RDW Plt Count MPV Neut % (Auto) Lymph % (Auto) Mccreary % (Auto) Eos % (Auto) Baso % (Auto) Neut # Lymph # Mccreary # Eos # Baso # Sodium Potassium Chloride Carbon Dioxide Anion Gap BUN Creatinine Est GFR ( Amer) Est GFR (Non-Af Amer) POC Glucose (mg/dL) 77 221 H 211 H Random Glucose Calcium Total Bilirubin AST ALT Alkaline Phosphatase Total Protein Albumin Globulin Albumin/Globulin Ratio 11/24/17 11/24/17 11/24/17 06:18 07:29 07:29 WBC 13.4 H RBC 3.06 L Hgb 8.9 L Hct 28.1 L MCV 91.9 MCH 29.1 MCHC 31.7 L RDW 18.9 H Plt Count 737 H MPV 7.7 Neut % (Auto) 77.9 H Lymph % (Auto) 12.2 L Mccreary % (Auto) 5.8 Eos % (Auto) 3.0 Baso % (Auto) 1.1 Neut # 10.5 H Lymph # 1.6 Mccreary # 0.8 Eos # 0.4 Baso # 0.1 Sodium 133 Potassium 5.5 H Chloride 96 L Carbon Dioxide 32 H Anion Gap 11 BUN 66 H Creatinine 2.4 H Est GFR ( Amer) 32 Est GFR (Non-Af Amer) 26 POC Glucose (mg/dL) 178 H Random Glucose 128 H Calcium 7.8 L Total Bilirubin 0.4 AST 39 ALT 25 Alkaline Phosphatase 156 H Total Protein 6.3 Albumin 2.5 L Globulin 3.7 Albumin/Globulin Ratio 0.7 L 11/24/17 11/24/17 07:47 11:16 WBC RBC Hgb Hct MCV MCH MCHC RDW Plt Count MPV Neut % (Auto) Lymph % (Auto) Mccreary % (Auto) Eos % (Auto) Baso % (Auto) Neut # Lymph # Mccreary # Eos # Baso # Sodium Potassium Chloride Carbon Dioxide Anion Gap BUN Creatinine Est GFR ( Amer) Est GFR (Non-Af Amer) POC Glucose (mg/dL) 166 H 206 H Random Glucose Calcium Total Bilirubin AST ALT Alkaline Phosphatase Total Protein Albumin Globulin Albumin/Globulin Ratio Assessment & Plan - Assessment and Plan (Free Text) Assessment: 77 year old male with right heel unstageable ulcer Plan: Patient seen and evaluated at bedside Discussed in detail with attending Dr. Lundberg Labs and vitals reviewed- afebrile, WBC 13.4 Right heel cleasned with saline, optifoam applied to the heel Foot wound does not appear clinically infected at this time Offloading boots reapplied, to remain on at all times while patient in bed Podiatry will continue to follow patient
--- NOTE | 2017-11-24 14:46 | PCM.RRT ---
<Anton Moore - Last Filed: 11/24/17 14:41> CORRECTION OFFICER Nurses Assessment - Situation Date: 10/14/17 Time CORRECTION OFFICER was called: 15:08 CORRECTION OFFICER Responder Arrival Time:: 15:09 CORRECTION OFFICER Location:: Med/Surg Room Number: 552B CORRECTION OFFICER Reason for Call: Change in Mental Status CORRECTION OFFICER Called By: RN - IV IV Inserted during CORRECTION OFFICER?: Yes IV Fluids Initiated During CORRECTION OFFICER?: fluid bolus 0.9 NS New IV Insertion Tolerance: Good - Respiratory CORRECTION OFFICER Delivery Method: Trach Collar @% Oxygen Flow Rate: 40 Received Nebulizer Treatments: No Was the Patient Ventilated with Bag/Mask 100% O2?: No Secretions Suctioned?: Yes Was the Patient Intubated?: No Was the Patient Placed on a Ventilator?: No - Ventilator Settings FIO2 (% Oxygen): 40 - Medication Medications Administered During CORRECTION OFFICER: None - Diagnostic Test Ordered Chest X-Ray: Yes CT Scan: Yes (head CT) - Stat Labs Ordered CORRECTION OFFICER Stat Labs Ordered: CBC, BMP, PT/PTT, LACTIC ACID, BLOOD C&S X2, ABG CPR started during CORRECTION OFFICER?: No - Vital Signs Vital Signs: Rapid Response Vital Sign Blood Pressure 84/42 Pulse Rate 120 Respiratory Rate 20 Temperature 100.0 F Oxygen Saturation 100 - Se Coma Scale Coma Scale Eye Opening: To pain Coma Scale Verbal: No response - Sepsis Screen Part 1 Sepsis Screen Part 1: Hypotensive - Sepsis Screen Part 2 Sepsis Screen Part 2: Glucose elevated, Pt not on steroids, WBC over 12,000 - Time CORRECTION OFFICER Ended Time CORRECTION OFFICER Ended: 15:40 - Vital Signs at end of CORRECTION OFFICER Vital Signs at end of CORRECTION OFFICER: Rapid Response End Vital Sign Blood Pressure 102/47 Pulse Rate 117 Respiratory Rate 20 Temperature 100.0 F O2 Sat by Pulse Oximetry 100 - Recommendations 5) CORRECTION OFFICER Level of Care Recommendations: Transfer to ICU Notifications: Attending Physician I.Reason for CORRECTION OFFICER - A) Acute Change in Patient: (Select all that apply): Acute change in SpO2 less (Patient pulled out his trach - SpO2 dropped to 70%) Subjective: An CORRECTION OFFICER was called today at approx 2:20pm because the patient pulled out his trach tube and his O2 saturation was near 70%. A ventimask was placed and his O2sat improved to 100%. Hospitalist Dr Bhatti inserted a new trach tube successfully. His vitals were monitored throughout. His HR was 120 and his O2 sat remained near 100%. A chest xray was ordered to verify the placement of the trach tube. - Neurological Status Other (Please specify): Non-verbal at baseline, does not follow commands at baseline - Respiratory Oxygen Delivery Method: Trach Collar @% Oxygen Flow Rate: 40 - Constitutional Appears: No Acute Distress - Head Head Exam: ATRAUMATIC - Eyes Eye Exam: EOMI - Respiratory Exam Respiratory Exam: Decreased Breath Sounds - Cardiovascular Exam Cardiovascular Exam: Tachycardia, +S1, +S2 - GI/Abdominal Exam GI & Abdominal Exam: Soft Additional comments: +peg tube - Neurological Exam Neurological Exam: absent: Oriented x3 <Jourdan Bhatti - Last Filed: 11/24/17 15:24> CORRECTION OFFICER Nurses Assessment - Vital Signs Vital Signs: Rapid Response Vital Sign Blood Pressure 84/42 Pulse Rate 120 Respiratory Rate 20 Temperature 100.0 F Oxygen Saturation 100 - Vital Signs at end of CORRECTION OFFICER Vital Signs at end of CORRECTION OFFICER: Rapid Response End Vital Sign Blood Pressure 102/47 Pulse Rate 117 Respiratory Rate 20 Temperature 100.0 F O2 Sat by Pulse Oximetry 100 Attending/Attestation - Attestation I have personally seen and examined this patient.: Yes I have fully participated in the care of the patient.: Yes I have reviewed all pertinent clinical information, including history, physical exam and plan: Yes Notes (Text): 11/24/17 15:19 Medical Attending: Patient was seen during the CORRECTION OFFICER. This is a patient well known to the hospitalist service. As mentioned above, the patient's trach had somehow came out. The patient according to the nursing staff, was somehow able to remove the mittens and then pulled the trach out. He was not in acute distress when I came in, however the SpO2 was intially 71. The staff brought up a #6 trach and with the good assistance of the team and patient service technician pst we were able to place it back in. We then suctioned out the trach. He was moving air in and out very well. There is an XRAY pending. thank you Jourdan Bhatti
--- NOTE | 2017-11-24 14:56 | RAD ---
HISTORY: new trach inserted COMPARISON: Chest x-ray performed 10/25/17 TECHNIQUE: Chest, one view. FINDINGS: Examination limited by habitus, hypoinflation, and patient obliquity. Face mask obscures the evaluation of the lung apices, in particular the right lung apex. Right-sided dialysis catheter with distal tips at the SVC/cavoatrial junction. Tracheostomy tube. Right-sided PICC no longer evident. LUNGS: Moderate pulmonary venous congestion. Small bilateral pleural effusions. Right basilar atelectasis/infiltrate. Retrocardiac opacity re-identified. No definite pneumothorax. CARDIOVASCULAR: Single lead left-sided AICD. Cardiomegaly. OSSEOUS STRUCTURES: Degenerative changes. VISUALIZED UPPER ABDOMEN: Unremarkable. OTHER FINDINGS: None. IMPRESSION: Right-sided dialysis catheter with distal tips at the SVC/cavoatrial junction. Tracheostomy tube. Right-sided PICC no longer evident. Moderate pulmonary venous congestion. Small bilateral pleural effusions. Right basilar atelectasis/infiltrate. Retrocardiac opacity re-identified. Single lead left-sided AICD. Cardiomegaly.
[2017-11-24 16:03] VITALS: BP 122/63; PULSE 124; RESP 22; TEMP 97.8; O2SAT 100
--- NOTE | 2017-11-24 18:39 | CP.PCM.DIS ---
Provider - Provider Date of Admission: 08/06/17 15:09 Attending physician: Cullen Barth MD Primary care physician: Dr. Mc Pickard Consults: Cardiology Dr. Cortés Pulmonary Dr. Mena Vascular Surgery Dr. Forbes Nephrology Dr. Miranda General Surgery Dr. Bay Hematology/Oncology Dr. Crawford BioEthics Dr. Bowles Time Spent in preparation of Discharge (in minutes): 40 Hospital Course - Lab Results Lab Results: Micro Results 11/15/17 15:48 Trachasp Gram Stain - Final 11/15/17 15:48 Trachasp Sputum Culture - Final NORMAL SAPROPHYTIC SILVIA 11/08/17 15:20 Naris MRSA Culture - Final MRSA NOT DETECTED 10/28/17 17:05 Blood Blood Culture - Final NO GROWTH AFTER 5 DAYS 10/28/17 17:05 Blood Gram Stain - Final TEST NOT PERFORMED 10/28/17 16:35 Blood Blood Culture - Final NO GROWTH AFTER 5 DAYS 10/28/17 16:35 Blood Gram Stain - Final TEST NOT PERFORMED 10/24/17 18:30 Blood Blood Culture - Final NO GROWTH AFTER 5 DAYS 10/24/17 18:30 Blood Gram Stain - Final TEST NOT PERFORMED 10/26/17 15:08 Catheter Tip Catheter Tip Culture - Final No growth. 10/24/17 18:00 Blood S.aureus & Coag-Neg Staph PNA FISH - Final 10/24/17 18:00 Blood Blood Culture - Final Reny Glabrata 10/24/17 18:00 Blood Gram Stain - Final 10/22/17 21:30 Blood-Thru Central Line Blood Culture - Final NO GROWTH AFTER 5 DAYS 10/22/17 21:30 Blood-Thru Central Line Gram Stain - Final TEST NOT PERFORMED 10/22/17 22:00 Blood-Thru Central Line Blood Culture - Final NO GROWTH AFTER 5 DAYS 10/22/17 22:00 Blood-Thru Central Line Gram Stain - Final TEST NOT PERFORMED 10/20/17 12:00 Stool Stool Culture - Final NO SALMONELLA, SHIGELLA OR CAMPYLOBACTER ISOLATED. 09/07/17 04:00 Other: Please Indicate Mycobacterial Culture - Final 10/20/17 12:00 Abdomen Ova and Parasite Concentrate Exam - Final 10/13/17 12:30 Blood Blood Culture - Final NO GROWTH AFTER 5 DAYS 10/13/17 12:30 Blood Gram Stain - Final TEST NOT PERFORMED 10/13/17 13:57 Blood Blood Culture - Final NO GROWTH AFTER 5 DAYS 10/13/17 13:57 Blood Gram Stain - Final TEST NOT PERFORMED 10/14/17 15:17 Urine,Catheterized Urine Culture - Final Yeast Species 10/14/17 Unknown Trachasp Gram Stain - Final 10/14/17 Unknown Trachasp Sputum Culture - Final NORMAL ORAL SILVIA 10/10/17 07:55 Sacral Gram Stain - Final 10/10/17 07:55 Sacral Wound Culture - Final Enterobacter Aerogenes Reny Glabrata 10/15/17 Unknown Naris MRSA Culture (Admit) - Final MRSA NOT DETECTED 09/10/17 10:38 Other: Please Indicate Mycobacterial Culture - Final 10/06/17 20:44 Urine,Catheterized Urine Culture - Final No Growth (<1,000 CFU/ML) 09/20/17 17:15 Urine,Catheterized Urine Culture - Final Yeast Species 09/20/17 13:51 Sacral Gram Stain - Final 09/20/17 13:51 Sacral Wound Culture - Final Vancomycin Resistant E.faecium Reny Albicans 09/07/17 04:00 Other: Please Indicate Legionella Culture - Final 09/13/17 12:30 Blood-Venous Blood Culture - Final NO GROWTH AFTER 5 DAYS 09/13/17 12:30 Blood-Venous Gram Stain - Final TEST NOT PERFORMED 09/13/17 13:00 Blood-Venous Blood Culture - Final NO GROWTH AFTER 5 DAYS 09/13/17 13:00 Blood-Venous Gram Stain - Final TEST NOT PERFORMED 09/15/17 Unknown Sacral Gram Stain - Final 09/15/17 Unknown Sacral Wound Culture - Final Vancomycin Resistant E.faecium Reny Albicans 09/14/17 21:55 Sacral Gram Stain - Final 09/14/17 21:55 Sacral Wound Culture - Final Vancomycin Resistant E.faecium Reny Albicans 09/13/17 17:35 Urine,Catheterized Urine Culture - Final Yeast Species 09/13/17 13:42 Naris MRSA Culture (Admit) - Final MRSA NOT DETECTED 09/07/17 14:45 Blood-During Dialysis Blood Culture - Final NO GROWTH AFTER 5 DAYS 09/07/17 14:45 Blood-During Dialysis Gram Stain - Final TEST NOT PERFORMED 09/07/17 14:13 Blood-During Dialysis Blood Culture - Final NO GROWTH AFTER 5 DAYS 09/07/17 14:13 Blood-During Dialysis Gram Stain - Final TEST NOT PERFORMED 09/09/17 21:00 Naris MRSA Culture - Final MRSA NOT DETECTED 09/05/17 18:00 Blood Blood Culture - Final NO GROWTH AFTER 5 DAYS 09/05/17 18:00 Blood Gram Stain - Final TEST NOT PERFORMED 09/05/17 15:30 Blood S.aureus & Coag-Neg Staph PNA FISH - Final 09/05/17 15:30 Blood Blood Culture - Final Coagulase Neg Staphylococcus 09/05/17 15:30 Blood Gram Stain - Final 09/07/17 04:00 Sputum Induced Gram Stain - Final 09/07/17 04:00 Sputum Induced Sputum Culture - Final Enterobacter Cloacae Ssp Cloac Yeast Species 08/26/17 12:30 Blood-Venous Blood Culture - Final NO GROWTH AFTER 5 DAYS 08/26/17 12:30 Blood-Venous Gram Stain - Final TEST NOT PERFORMED 08/26/17 12:00 Blood-Venous Blood Culture - Final NO GROWTH AFTER 5 DAYS 08/26/17 12:00 Blood-Venous Gram Stain - Final TEST NOT PERFORMED 08/25/17 18:00 Blood Blood Culture - Final NO GROWTH AFTER 5 DAYS 08/25/17 18:00 Blood Gram Stain - Final TEST NOT PERFORMED 08/25/17 17:30 Blood Blood Culture - Final NO GROWTH AFTER 5 DAYS 08/25/17 17:30 Blood Gram Stain - Final TEST NOT PERFORMED 08/27/17 18:58 Urine,Catheterized Urine Culture - Final Yeast Species 08/26/17 15:10 Trachasp Gram Stain - Final 08/26/17 15:10 Trachasp Sputum Culture - Final NORMAL ORAL SILVIA 08/25/17 11:13 Sputum Gram Stain - Final 08/25/17 11:13 Sputum Sputum Culture - Final Yeast Species 08/19/17 19:00 Pleural Fluid Gram Stain - Final 08/19/17 19:00 Pleural Fluid Body Fluid Culture - Final No growth. 08/19/17 Unknown Sputum Gram Stain - Final 08/19/17 Unknown Sputum Sputum Culture - Final No growth. 08/18/17 13:17 Urine,Catheterized Urine Culture - Final No Growth (<1,000 CFU/ML) 08/14/17 17:36 Trachasp Gram Stain - Final 08/14/17 17:36 Trachasp Sputum Culture - Final NORMAL ORAL SILVIA 08/12/17 20:15 Urine Urine Culture - Final Gram Negative Sarmad 08/10/17 15:47 Urine,Sanchez Urine Culture - Final Gram Negative Sarmad 08/06/17 15:30 Blood Blood Culture - Final NO GROWTH AFTER 5 DAYS 08/06/17 15:30 Blood Gram Stain - Final TEST NOT PERFORMED 08/06/17 15:30 Blood Blood Culture - Final NO GROWTH AFTER 5 DAYS 08/06/17 15:30 Blood Gram Stain - Final 08/06/17 20:53 Throat Group A Strep Throat Culture - Final NO BETA STREP GROUP A ISOLATED. Most Recent Lab Values WBC 13.4 K/uL (4.8-10.8) H 11/24/17 07:29 RBC 3.06 Mil/uL (4.40-5.90) L 11/24/17 07:29 Hgb 8.9 g/dL (12.0-18.0) L 11/24/17 07: Hct 28.1 % (35.0-51.0) L 11/24/17 07:29 MCV 91.9 fL (80.0-94.0) 11/24/17 07: MCH 29.1 pg (27.0-31.0) 11/24/17 07: MCHC 31.7 g/dL (33.0-37.0) L 11/24/17 07:29 RDW 18.9 % (11.5-14.5) H 11/24/17 07:29 Plt Count 737 K/uL (130-400) H 11/24/17 07:29 MPV 7.7 fL (7.2-11.7) 11/24/17 07: Neut % (Auto) 77.9 % (50.0-75.0) H 11/24/17 07:29 Lymph % (Auto) 12.2 % (20.0-40.0) L 11/24/17 07:29 [place] % (Auto) 5.8 % (0.0-10.0) 11/24/17 07: Eos % (Auto) 3.0 % (0.0-4.0) 11/24/17 07:29 Baso % (Auto) 1.1 % (0.0-2.0) 11/24/17 07:29 Neut # 10.5 K/uL (1.8-7.0) H 11/24/17 07: Lymph # 1.6 K/uL (1.0-4.3) 11/24/17 07:29 [place] # 0.8 K/uL (0.0-0.8) 11/24/17 07:29 Eos # 0.4 K/uL (0.0-0.7) 11/24/17 07:29 Baso # 0.1 K/uL (0.0-0.2) 11/24/17 07:29 Neutrophils % (Manual) 88 % (50-75) H 11/21/17 15:01 Band Neutrophils % 1 % (0-2) 11/21/17 15:01 Lymphocytes % (Manual) 5 % (20-40) L 11/21/17 15:01 Reactive Lymphs % 1 % (0-0) H 09/13/17 13:23 Monocytes % (Manual) 6 % (0-10) 11/21/17 15:01 Eosinophils % (Manual) 1 % (0-4) 11/20/17 11:00 Basophils % (Manual) 1 % (0-2) 10/22/17 06:40 Myelocytes % 1 % (0-0) H 11/10/17 08:04 Nucleated RBC % 1 % (0-0) H 11/10/17 08:04 Differential Comment 10/23/17 06:30 Toxic Granulation Present 11/10/17 08:04 Platelet Estimate Increased (NORMAL) H 11/21/17 15:01 Plt Clumps, EDTA Present 10/22/17 06:40 Large Platelets Present 11/21/17 15:01 Giant Platelets Present 10/22/17 06:40 Polychromasia Slight 11/21/17 15:01 Hypochromasia (manual) Slight 11/21/17 15:01 Poikilocytosis (manual Slight 11/20/17 11:00 Basophilic Stippling Slight 11/21/17 15:01 Anisocytosis (manual) Moderate 11/21/17 15:01 Microcytosis (manual) Slight 11/20/17 11:00 Macrocytosis (manual) Slight 11/20/17 11:00 Spherocytes Slight 08/28/17 06:49 Target Cells Slight 10/19/17 06:25 Tear Drop Cells Slight 08/27/17 06:43 Ovalocytes Slight 11/20/17 11:00 Yakov Cells Slight 08/16/17 06:19 Schistocytes Slight 08/14/17 06:19 ESR 117 mm/hr (0-15) H 10/14/17 15:42 PT 13.4 SECONDS (9.7-12.2) H 10/14/17 16:30 INR 1.2 10/14/17 16:30 APTT 28 SECONDS (21-34) 10/14/17 16:30 Puncture Site Lb 10/25/17 00:46 pCO2 32 mm/Hg (35-45) L 10/25/17 00:46 pO2 71 mm/Hg (80-100) L 10/25/17 00:46 HCO3 29.3 mmol/L (21-28) H 10/25/17 00:46 ABG pH 7.55 (7.35-7.45) H 10/25/17 00:46 ABG Total CO2 29.0 mmol/L (22-28) H 10/25/17 00:46 ABG O2 Saturation 97.7 % (95-98) 10/25/17 00:46 ABG Base Excess 5.6 mmol/L (-2.0-3.0) H 10/25/17 00:46 ABG Hemoglobin 9.8 g/dL (11.7-17.4) L 10/25/17 00:46 ABG Carboxyhemoglobin 2.4 % (0.5-1.5) H 10/25/17 00:46 POC ABG HHb (Measured) 2.2 % (0.0-5.0) 10/25/17 00:46 ABG Methemoglobin 1.3 % (0.0-3.0) 10/25/17 00:46 Uriel Test Na 10/25/17 00:46 ABG Potassium 3.1 mmol/L (3.6-5.2) L 10/14/17 15:25 A-a O2 Difference 139.0 mm/Hg 10/25/17 00:46 Respiratory Index 2.0 10/25/17 00:46 Hgb O2 Saturation 94.1 % (95.0-98.0) L 10/25/17 00:46 Sodium 139.0 mmol/l (132-148) 10/14/17 15:25 Chloride 106.0 mmol/L (98-107) 10/14/17 15:25 Glucose 275 mg/dl (75-110) H 10/14/17 15:25 Lactate 1.2 mmol/L (0.7-2.1) 10/14/17 15:25 Vent Mode Prvc 08/26/17 05:20 Mechanical Rate 12 08/26/17 05:20 FiO2 35.0 % 10/25/17 00:46 Tidal Volume 450 08/26/17 05:20 PEEP 6 08/26/17 05:20 Pressure Support 18 08/13/17 16:30 CPAP 5 08/13/17 16:30 Crit Value Called To Dr mena 10/16/17 10:30 Crit Value Called By Salvador murillo crt 10/16/17 10:30 Crit Value Read Back Y 10/16/17 10:30 Blood Gas Notified Time 1040 10/16/17 10:30 Sodium 133 mmol/L (132-148) 11/24/17 07:29 Potassium 5.5 mmol/L (3.6-5.2) H 11/24/17 07:29 Chloride 96 mmol/L (98-107) L 11/24/17 07:29 Carbon Dioxide 32 mmol/L (22-30) H 11/24/17 07:29 Anion Gap 11 (10-20) 11/24/17 07:29 BUN 66 mg/dL (9-20) H 11/24/17 07:29 Creatinine 2.4 mg/dL (0.8-1.5) H 11/24/17 07:29 Est GFR ( Amer) 32 11/24/17 07:29 Est GFR (Non-Af Amer) 26 11/24/17 07:29 POC Glucose (mg/dL) 206 mg/dL (65-110) H 11/24/17 11:16 Random Glucose 128 mg/dL (75-110) H 11/24/17 07:29 Hemoglobin A1c 8.4 % (4.2-6.5) H 08/07/17 07:16 Lactic Acid 2.4 mmol/L (0.7-2.1) H 09/13/17 15:11 Calcium 7.8 mg/dl (8.6-10.4) L 11/24/17 07:29 Phosphorus 5.5 mg/dL (2.5-4.5) H 11/09/17 08:10 Magnesium 2.2 mg/dL (1.6-2.3) 11/09/17 08:10 Iron 22 ug/dL (49-181) L 08/06/17 20:46 TIBC 158 ug/dL (250-450) L 10/26/17 06:29 % Saturation 21 (20-55) 10/11/17 07:26 Ferritin 960.0 ng/mL 10/27/17 06:38 Total Bilirubin 0.4 mg/dL (0.2-1.3) 11/24/17 07:29 AST 39 U/L (17-59) 11/24/17 07:29 ALT 25 U/L (21-72) 11/24/17 07:29 Alkaline Phosphatase 156 U/L (38-126) H 11/24/17 07:29 Total Creatine Kinase 324 U/L (55-170) H 08/10/17 13:50 CK-MB (Mass) 7.41 ng/mL (0.0-3.38) H 08/10/17 13:50 Troponin I 0.0640 ng/mL (0.00-0.120) 08/06/17 14:28 Troponin I, Quant 0.6470 ng/mL (0.00-0.120) H* 08/10/17 13:50 C-React Prot High Sens > 15.00 mg/L (1.00-3.00) H 10/14/17 15:42 NT-Pro-B Natriuret Pep 15305 pg/mL (0-900) H 08/06/17 14:28 Total Protein 6.3 g/dL (6.3-8.3) 11/24/17 07:29 Total Protein (PEP) 6.9 g/dL (6.1-8.1) 08/08/17 07:11 Albumin 2.5 g/dL (3.5-5.0) L 11/24/17 07:29 Albumin (PEP) 3.2 g/dL (3.8-4.8) L 08/08/17 07:11 Globulin 3.7 gm/dL (2.2-3.9) 11/24/17 07:29 Albumin/Globulin Ratio 0.7 (1.0-2.1) L 11/24/17 07:29 Fhtnh-1-Ofkbflomj 0.4 g/dL (0.2-0.3) H 08/08/17 07:11 Zdokm-9-Rvatyhnft 0.8 g/dL (0.5-0.9) 08/08/17 07:11 Hbqn-6-Uphvirdf 0.5 g/dL (0.4-0.6) 08/08/17 07:11 Xrou-1-Cobspcfo 0.5 g/dL (0.2-0.5) 08/08/17 07:11 Gamma Globulins 1.5 g/dL (0.8-1.7) 08/08/17 07:11 Abnorm Protein Band 1 TEST NOT PERFORMED 08/08/17 07:11 Abnorm Protein Band 2 TEST NOT PERFORMED 08/08/17 07:11 Abnorm Protein Band 3 TEST NOT PERFORMED 08/08/17 07:11 Vitamin B12 639 pg/mL (239-931) 08/08/17 07:11 Folate 4.6 ng/mL 08/08/17 07:11 Procalcitonin 6.19 NG/ML (0.19-0.49) H 10/16/17 12:32 Free T4 1.53 ng/dL (0.78-2.19) 08/07/17 07:16 TSH 3rd Generation 1.16 mIU/L (0.46-4.68) 08/07/17 07:16 PTH Intact Whole Molec 206 pg/mL (14-64) H 08/17/17 16:33 Plasma Cortisol PM 21.4 ug/dL (1.7-14.1) H 10/14/17 15:42 Arterial Blood Potassium 3.1 mmol/L (3.6-5.2) L 10/14/17 15:25 Urine Color Red (YELLOW) 10/15/17 17:13 Urine Clarity Turbid (Clear) 10/15/17 17:13 Urine pH 5.0 (5.0-8.0) 10/15/17 17:13 Ur Specific [place] 1.026 (1.003-1.030) 10/15/17 17:13 Urine Protein 1+ mg/dL (NEGATIVE) H 10/15/17 17:13 Urine Glucose (UA) Normal mg/dL (Normal) 10/15/17 17:13 Urine Ketones Trace mg/dL (NEGATIVE) 10/15/17 17:13 Urine Blood 2+ (NEGATIVE) H 10/15/17 17:13 Urine Nitrate Negative (NEGATIVE) 10/15/17 17:13 Urine Bilirubin 1+ (NEGATIVE) H 10/15/17 17:13 Urine Urobilinogen Normal mg/dL (0.2-1.0) 10/15/17 17:13 Ur Leukocyte Esterase 3+ Francoise/uL (Negative) H 10/15/17 17:13 Urine WBC (Auto) 440 /hpf (0-5) H 10/15/17 17:13 Urine RBC (Auto) 600 /hpf (0-3) H 10/15/17 17:13 Urine WBC Clumps (Auto) Many /hpf (NONE) H 08/27/17 18:55 Ur Squamous Epith Cells 1 /hpf (0-5) 10/06/17 21:16 Ur Transition Epith Cell < 1 /hpf (0-3) 08/27/17 18:55 Urine Bacteria Mod (<OCC) H 10/15/17 17:13 Urine Yeast (Budding) Many /hpf (NEGATIVE) H 10/06/17 21:16 Fluid Source Pleural 08/19/17 19:06 Fluid Appearance Cloudy (CLEAR) 08/19/17 19:06 Fluid pH 7.5 08/19/17 18:53 Fluid WBC 420.0 /mm3 (0.0-300.0) H 08/19/17 19:06 Fluid RBC 61227.0 /mm3 (0.0-0.0) H 08/19/17 19:06 Fluid Neutrophils 67.0 % (0-0) H 08/19/17 19:06 Fluid Lymphocytes 28.0 % (0-0) H 08/19/17 19:06 Fld Monocyte/Macrophag 4 % (0-0) H 08/19/17 19:06 Fluid Comment 08/19/17 19:06 Pleural Total Protein 3.5 g/dL 08/19/17 18:53 Pleural LDH 267 U/L 08/19/17 18:53 Pleural Glucose 209 mg/dL 08/19/17 18:53 Stool Occult Blood Positive (NEGATIVE) H 10/24/17 18:07 Stool Leukocytes, Qual Negative (NEGATIVE) 10/20/17 12:00 Random Vancomycin 13.67 ug/mL 10/23/17 06:30 FLORENCIO & SPEP Interp See note 08/08/17 07:11 Serum Immunofixation Detected (Not Detected) H 08/08/17 07:11 [place]/Lambda Light Chain (()) 08/08/17 07:11 Free [place] Light Chains 86.0 mg/L (3.3-19.4) H 08/08/17 07:11 Free Lambda Light Chain 57.2 mg/L (5.7-26.3) H 08/08/17 07:11 Free [place]/Lambda Ratio 1.50 (0.26-1.65) 08/08/17 07:11 C. difficile Ag & Toxin Negative (NEGATIVE) 10/22/17 19:20 Hepatitis A IgM Ab Negative (NEGATIVE) 10/04/17 18:53 Hep Bs Antigen Negative (NEGATIVE) 11/09/17 08:10 Hep Bs Antibody Positive (NEGATIVE) 10/04/17 20:25 Hep B Core IgM Ab Negative (NEGATIVE) 10/04/17 18:53 Hepatitis C Antibody Negative (NEGATIVE) 10/04/17 18:53 Influenza Typ A,B (EIA) Negative for flu a/b (NEGATIVE) 08/06/17 20:53 Ur L.pneumophila Ag Cancelled 08/06/17 20:53 M.pneumoniae IgG Titer 0.65 (<=0.90) 09/07/17 06:23 Mycoplasma pneumon IgM Negative (NEGATIVE) 08/06/17 20:53 Pneumocystis Source Serum 09/07/17 06:23 Grp A Beta Strep Ag Negative (NEGATIVE) 08/06/17 20:53 S. pneumoniae Antigen Not detected 09/07/17 06:23 Ur Strep pneumoniae Ag Detected H 08/07/17 14:55 Blood Type B POSITIVE 11/04/17 06:37 Antibody Screen Negative 11/04/17 06:37 - Hospital Course Hospital Course: This a 77 year old male with an extensive medical history and a complicated hospital course. Please see the individual Assessment and Plans below for a breif summary of each issue during his prolonged hospital stay. Please refer to the complete medical records for further details. ROS are not possible due to the patient being nonresponsive and with tracheostomy. - Constitutional Appears: Non-toxic, No Acute Distress - Head Exam Head Exam: ATRAUMATIC, NORMAL INSPECTION - Eye Exam Eye Exam: EOMI, Normal appearance - ENT Exam ENT Exam: Mucous Membranes Moist - Respiratory Exam Respiratory Exam: Decreased Breath Sounds, NORMAL BREATHING PATTERN. absent: Rales, Rhonchi, Wheezes, Respiratory Distress - Cardiovascular Exam Cardiovascular Exam: Tachycardia, +S1, +S2. absent: Murmur Additional comments: + right chest wall permacath - GI/Abdominal Exam GI & Abdominal Exam: Soft. absent: Firm, Guarding, Rigid, Tenderness Additional comments: +peg tube - Rectal Exam Additional comments: +rectal tube - Extremities Exam Additional comments: Right heel ulcer (unstageable) +Prevalon boots and SCDs - Back Exam Additional comments: Unstageable sacral decubitus ulcer that is extending into ischial tuberosities Bilateral hip ulcers (stage 2) - Neurological Exam Neurological Exam: Alert, Awake - Psychiatric Exam Psychiatric exam: Normal Affect, Normal Mood - Skin Skin Exam: Normal Color, Warm Assessment and Plan - Assessment and Plan (Free Text) Assessment: 1). Hx Acute Respiratory Failure/ARDS/Cadiac Arrest/NSTEMI: * Dr Cortés (cardiology) on the case-->help appreciated * Dr. Mena (pulmonary) on the case-->help appreciated * Code Blue on 08/10: asystole, cardiopulmonary resuscitative measures initiated , requiring 3 epis, bicarbonate, ROSC achieved and intubated and brought to the ICU. Patient has had multiple for hypotension. Latest [employer] was on 10/14--> transferred to [facility] and on the floors. * Atrovent 0.5mg Inhaled RQ6H * Aspirin 81mg PO daily * Lopressor 12.5mg PO BID with holding parameters * Midodrine 10mg PO TID * Crestor 10mg PO qHS 2). Hx Abnormal Stress Test/AICD/CAD: * Dr Cortés (cardiology) on the case-->help appreciated * Dr. Mena (pulmonary) on the case-->help appreciated * Code Blue on 08/10: asystole, cardiopulmonary resuscitative measures initiated , requiring 3 epis, bicarbonate, ROSC achieved and intubated and brought to the ICU. Patient has had multiple for hypotension. Latest [employer] was on 10/14/17 * Aspirin 81mg PO daily * Lopressor 12.5mg PO BID with holding parameters * Midodrine 10mg PO TID * Crestor 10mg PO qHS 3). Hx Atrial Flutter: * Lopressor 12.5mg PO BID with holding parameters * Unable to anticoagulate secondary to occult stool blood 4). 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 Leukocytosis * Infectious Disease (Dr. Lawrence) on the case-->help appreciated * Blood Culture 10/22/17 is finalized as negative. * Sputum culture 10/14/17 is negative. * Stool cultures 10/20/17 are negative. 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 * Right Arm Midline Tip 10/06/17 culture is negative and removed. Midline Tip Culture 10/26/17 is negative. * Blood Cultures 10/28/17 are negative to date. * Iv ABx: Cefepime (10/12/17 through 10/24/17), Aztreonam (10/13/17 through )), Diflucan (10/14/17 through 10/26/17). * Off Meropenem 500 mg IV Q8H (10/28;), Micafungin 100 mg IV Q24H (10/27/17- 11/17/2017) * Started on Primaxin given shortage on Meropenem * Primaxin 250mg IVQ12 discontinued (11/17/17-11/24/17) * I spoke with 11/02, she does not want Permacath replaced given cardiac risk for operation/anesthesia and reaffirmed on 11/16. * ID Recommended for permcath and sacral debridement by ID, has refused 11/02. * Sacral ulcer unstageable; Wound care is on board 6). Hx Pneumonia, Fungemia * ID on the case-->help appreciated * Currently on Meropenem 500 mg IV Q8H (10/28/17-), Micofungin 100 mg IV Q24H ( 10/27/17-11/17/2017). * Primaxin 250mg IVQ12 Discontinued (11/17/17-11/24/17) * I spoke with 11/02, she does not want Permacath replaced given cardiac risk for operation/anesthesia. * ID Recommended for permcath and sacral debridement by ID, has refused 11/02 and 11/16. * Sacral ulcer unstageable; Wound care is on board 7). Hx HTN: * Lopressor 12.5mg PEG BID with holding parameters 8). Hx CKD on HD --. * Family would like to continue HD through current Permacath and declined surgical intervention to change catheter (due to the Blood Culture 10/24/17 being positive for Reny glabrata) as recommended by Vascular Surgery and Infectious Disease. * I discussed with at bedside 11/02, she continues to deny the exchange secondary to cardiac risk. * Phoslo 2001mg GT TIDCC * Epocrit 10,000 unit IV MWF 9). Hx DM: * Levemir 35 units [id number] * Insulin sliding scale * monitor [id number] * HgbA1c 8.4 10). Hx HLD * Crestor 10mg PO qHS 11). Hx Anemia: * Eliquis stopped 10/24/17 secondary to positive stool occult blood * Stool Occult is Positive and GI Dr. Dsouza was reconsulted however no further workup recommended in light of patient current status. * Procrit 10,000 units -- * Ascorbic acid 500mg daily * s/p 1 unit of PRBC 11/04 given declining H/H * HgB/Hct are currently stable 12). Hx DVT; Left upper Extremity DVT+ * Eliquis stopped 10/24/17 given positive bloody stool * Repeat dopplers LE 08/09/17 are negative for DVT * Left UE Doppler 11/08/17 was POSITIVE for DVTs in Left Brachial and Left Axillary Veins: Can NOT anticoagulate due to history of bleeding (requiring blood transfusion) with anticoagulation 13). Hx UTI: * Yeast on culture 10/24/17. * He was on Micafungin 100 mg IV Q24H (10/27-11/17/2017). He may be colonized with this. * ID Recommended for permcath and sacral debridement by ID, has refused 11/02 and confirmed 11/16 14). Hx Alzheimer's Dementia * CT head w/o contrast (08/10/17):acute os subacute lacune infarct is not excluded in the left basal ganglia inferiorly with definitive chronic lacune identified in the right basal ganglia superiorly. No acute or subacute lobar brain infarction is appreciable by standard CT criteria. Mild age-related neuro * CT Head w/o contrast (10/14/17): no intracranial mass, hemorrhage, or evidence of acute infarct. 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 Old right external capsule ischemic change. Age related atrophy and chronic microvascular ischemic change 15). Hx Sacral Ulcer: * General surgery (Dr. Forbes) on board-->help appreciated * Bone Scan performed 09/17/17 to check for Osteomyelitis at the Sacrum: negative for osteomyelitis * Currently on MediHoney daily, family has declined further debridement by surgery. Wound care on board * Recommended for permcath and sacral debridement by ID, has refused 11/02 16). Hx Right Heal Ulcer * Podiatry (Dr. Lundberg) on board-->help appreciated * Continue Prevalon boots * Unstageable 17). Hx Elevated LFTs * Normalized; patient is on statin and Micafungin 18). Diarrhea: * Rectal tube in place * Stool Studies 10/20/17 are negative * On loperamide PRN 19). Hx Hyponatremia: * Normalized 20). Hx PEG Tube: * Nephro at 50 ml/hour 21). Hx Hypocalcemia: * Continue Calcitriol 0.25mcg daily * Continue phoslo 2001mg GT TIDCC 22) Hyperkalemia * Potassium 5.5 today * Will switch tube feeds to nepro 50mls/hr * One time dose of Kayexylate ordered 22). Prophylactic Measures: * Started on dialysis 08/15/17 * (Jovita Serrano): * is currently admitted to the hospital at this time * Patient is now: DNR * Palliative care on board * Bioethics consult () to evaluated-->notes under patient care-- Patient's may make decision. 11/08/17: Extensive conversation with today at the time of exam. 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 If debridement did take place then there would be no guarantees that this would improve considering his multiple comorbidities and that this will also likely be extremely painful to patient. Also that if these areas were not debrided, then we ran the risk for sepsis as well osteomyelitis. So unfortunately this placed us between a rock and a hard place concerning this issue. Considering this, I asked her to consider Hospice and explained to her that this would involve discontinuing HD, antibiotics and would involve making him as comfortable as possible. I have reached out to Palliative Care Nurse Domitila and explained to that Nurse Ramesh will speak with her 11/09/17. also asked about the possibility of spinal anesthesia for the debridement and I told her that I would check with the surgery team but also reminded her of the original concerns about patient pain after the procedure and likelihood of lack of improvement considering the multiple comorbidities. 11/09/17: Nurse Ramesh spoke with via phone (concerning what I discussed with her in person on 11/08/17) and will meet with her on 11/10/17. 11/10/17: Nurse Raemsh met with . [place] that may be undocumented and relies on patient's benefits for financial source. Considering my conversation with patient on 11/08/17, I have ordered [employer] consultation for further recommendations. Nurse Ramesh will speak with [employer] Dr. Renan Bowles whose help will be appreciated concerning this issue. 11/15/17: per Bioethics consult: This patient has been here for five months (9 ) to present. He was admitted with shortness of breath and chest pain. Over these months his condition has deteriorated. He is now in need of heavy care. His expressed worry and concern. She agreed to a DNR. The consult involves the conflict of the not agreeing with placing her on comfort care. Bio-ethics committee recommends approaching the family again in light of insurance changes to place the patient in a long-term care facility ( group home), or for the family to prepare for home health care if hospice will not be considered, even though it is thought appropriate for this patient. 11/16/17: Family meeting at 5:30PM with Forestry Aid Linette, harvest worker Glenn, Resident Ricky, with patient's . Assistance with Translation Micky Loya #[id number] South Korean Intrepretor.. Reviewed where does the patient go from the hospitalization and available options. Patient's has affirmed with definitive "NO" to surgical intervention which includes debridement of the sacrum, fistula placement, nor exchange out the permacath given the cardiac risk for any operation. This was explained to her very clearly. Patient's has affirmed with definitive "NO" to comfort care and no hospice care. She wants to continue to current therapy including dialysis and trach care treatment. She has affirmed "YES" to DNR. She reports if Gods's will to let him go naturally. Her example she reports if he has a heart attack, let him go. She recalls and reaffirms prior conversations with both my colleague Dr. Cullen Barth and affirms her POLST created with Maryann, Palliative Care nurse. She is aware there is pain associated with the sacrum wound. Glenn, harvest worker explained the options available for the patient as listed as below Options: 1#: higher level facility to provide highly care specialized nursing for trach care and will need close distance to support dialysis 2#: hospice 3#: home. chooses option 1 in light of conversation as stated above in regards to Option 2. Given the great level of care he will need, not bring the patient home , which appears overwhelmed and affirms. has affirmed Option#1. However, decision regards which location is something she needs more time to think about. Social work has discussed in extensive detail in regards to locations in [place], [place] and [place], [place] for trach care and located dialysis center. There is no location [facility] to support the level care that patient requires; which was explained by the social work. Social work works will try to work with given concerns including transportation, cost, and reports is available to answer any questions. has not made decision, needs time to think about it, will given decision tomorrow. 11/24/17: patient was accepted by [facility] in [place] and as my conversation with Pulvi Mixer Operator Glenn, patient's has agreed. Patient to be transferred there later today. Cullen Barth D.O. Discharge Exam - Head Exam Head Exam: ATRAUMATIC Discharge Plan - Follow Up Plan Condition: FAIR Disposition: HOME/ ROUTINE Instructions: Angina (DC), Myocardial Infarction (DC), Heart Failure (DC), Pneumonia (DC) Referrals: Kristina Pickard MD [Staff Provider] -
== END 2017-11-24 20:00 | DRG 3 ==
LOC: C.ER 13:14 → C.9E 15:09 → C.6T 16:27 → C.9I 08-10 13:45 → C.5S 09-09 20:11 → C.9I 09-13 11:36 → C.5S 09-25 21:46 → C.9I 10-15 00:21 → C.3T 11-08 14:22
PROVIDERS: ADMIT Hospitalist; ATTEND Family Medicine
PROC: 04HK33Z Insertion of Infusion Device into Right Femoral Artery, Percutaneous Approach (ICD-10-PCS; 2017-08-10)
PROC: 5A1955Z Respiratory Ventilation, Greater than 96 Consecutive Hours (ICD-10-PCS; 2017-08-11)
PROC: 5A12012 Performance of Cardiac Output, Single, Manual (ICD-10-PCS; 2017-08-11)
PROC: 0BH17EZ Insertion of Endotracheal Airway into Trachea, Via Natural or Artificial Opening (ICD-10-PCS; 2017-08-12)
PROC: 0BH17EZ Insertion of Endotracheal Airway into Trachea, Via Natural or Artificial Opening (ICD-10-PCS; 2017-08-12)
PROC: 0W9930Z Drainage of Right Pleural Cavity with Drainage Device, Percutaneous Approach (ICD-10-PCS; 2017-08-19)
PROC: 05H533Z Insertion of Infusion Device into Right Subclavian Vein, Percutaneous Approach (ICD-10-PCS; 2017-08-22)
PROC: 0B113F4 Bypass Trachea to Cutaneous with Tracheostomy Device, Percutaneous Approach (ICD-10-PCS; principal; 2017-08-22 14:30)
PROC: 0DH68UZ Insertion of Feeding Device into Stomach, Via Natural or Artificial Opening Endoscopic (ICD-10-PCS; 2017-08-25)
PROC: 0JB70ZZ Excision of Back Subcutaneous Tissue and Fascia, Open Approach (ICD-10-PCS; 2017-09-15)
PROC: 5A1D70Z Performance of Urinary Filtration, Intermittent, Less than 6 Hours Per Day (ICD-10-PCS; 2017-10-19)
PROC: 30233N1 Transfusion of Nonautologous Red Blood Cells into Peripheral Vein, Percutaneous Approach (ICD-10-PCS; 2017-10-24)
DX: I13.2 Hypertensive heart and chronic kidney disease with heart failure and with stage 5 chronic kidney disease, or end stage renal disease (principal); I21.4 Non-ST elevation (NSTEMI) myocardial infarction; R65.21 Severe sepsis with septic shock; A41.89 Other specified sepsis; L89.154 Pressure ulcer of sacral region, stage 4; E46 Unspecified protein-calorie malnutrition; L89.153 Pressure ulcer of sacral region, stage 3; J96.21 Acute and chronic respiratory failure with hypoxia; G93.1 Anoxic brain damage, not elsewhere classified; E87.3 Alkalosis; I50.23 Acute on chronic systolic (congestive) heart failure; N18.6 End stage renal disease; I46.9 Cardiac arrest, cause unspecified; B37.49 Other urogenital candidiasis; J98.11 Atelectasis; N17.9 Acute kidney failure, unspecified; D68.9 Coagulation defect, unspecified; E87.1 Hypo-osmolality and hyponatremia; I47.1 Supraventricular tachycardia; I48.92 Unspecified atrial flutter; M46.28 Osteomyelitis of vertebra, sacral and sacrococcygeal region; E11.21 Type 2 diabetes mellitus with diabetic nephropathy; E11.22 Type 2 diabetes mellitus with diabetic chronic kidney disease; E11.51 Type 2 diabetes mellitus with diabetic peripheral angiopathy without gangrene; D63.1 Anemia in chronic kidney disease; E11.649 Type 2 diabetes mellitus with hypoglycemia without coma; E11.69 Type 2 diabetes mellitus with other specified complication; D50.9 Iron deficiency anemia, unspecified; E11.65 Type 2 diabetes mellitus with hyperglycemia; E78.00 Pure hypercholesterolemia, unspecified; E78.5 Hyperlipidemia, unspecified; E83.39 Other disorders of phosphorus metabolism; Z51.5 Encounter for palliative care; Z66 Do not resuscitate; N40.0 Benign prostatic hyperplasia without lower urinary tract symptoms; E83.51 Hypocalcemia; G30.9 Alzheimer's disease, unspecified; I48.0 Paroxysmal atrial fibrillation; F02.80 Dementia in other diseases classified elsewhere, unspecified severity, without behavioral disturbance, psychotic disturbance, mood disturbance, and anxiety; I25.10 Atherosclerotic heart disease of native coronary artery without angina pectoris; I25.5 Ischemic cardiomyopathy; I34.0 Nonrheumatic mitral (valve) insufficiency; I27.20 Pulmonary hypertension, unspecified; I95.3 Hypotension of hemodialysis; I08.0 Rheumatic disorders of both mitral and aortic valves; E87.5 Hyperkalemia; J45.909 Unspecified asthma, uncomplicated; K21.9 Gastro-esophageal reflux disease without esophagitis; Z16.21 Resistance to vancomycin; L89.619 Pressure ulcer of right heel, unspecified stage; R13.10 Dysphagia, unspecified; K59.00 Constipation, unspecified; K80.20 Calculus of gallbladder without cholecystitis without obstruction; K57.90 Diverticulosis of intestine, part unspecified, without perforation or abscess without bleeding; I25.2 Old myocardial infarction; Z86.73 Personal history of transient ischemic attack (TIA), and cerebral infarction without residual deficits; Z79.4 Long term (current) use of insulin; Z86.718 Personal history of other venous thrombosis and embolism; Z87.440 Personal history of urinary (tract) infections; Z79.01 Long term (current) use of anticoagulants; Z95.810 Presence of automatic (implantable) cardiac defibrillator; Z79.82 Long term (current) use of aspirin; Z87.442 Personal history of urinary calculi; Z87.01 Personal history of pneumonia (recurrent); Z95.5 Presence of coronary angioplasty implant and graft